=== PATIENT | female | born 1955 | race Caucasian/White ===

== ENCOUNTER 2019-08-20 13:42 | Emergency (ER) | payer OTHER, SELFPAY ==
[2019-08-20 13:58] VITALS: BP 111/56; PULSE 89; RESP 16; TEMP 36.7; O2SAT 98
--- NOTE | 2019-08-20 14:08 | ED.WOUNDLAC ---
HPI - Wound/Laceration General Chief Complaint: Wound/Laceration Stated Complaint: Dog Bite Time Seen by Provider: 08/20/19 14:08 Source: patient and RN notes reviewed Mode of arrival: ambulatory Limitations: no limitations History of Present Illness HPI narrative: 64-year-old female with a history of diabetes mellitus presents with concern for dog bite. She reports last night her brother's dog bit her on the right forearm. Reports she did not clean it, because she was trying to get it to stop bleeding. She reports she was able to get it stop bleeding last night. Reports she does not know when her last tetanus was. Related Data Home Medications Medication Instructions Recorded Confirmed adalimumab 40 mg/0.8 mL 40 mg SUB-Q ONCE 06/20/19 06/21/19 subcutaneous pen kit albuterol sulfate 90 mcg/actuation 1 inhalation INHALATION Q4H 06/20/19 06/21/19 aerosol inhaler aspirin 81 mg tablet,delayed 81 mg PO DAILY 06/20/19 06/21/19 release azelastine 0.15 % (205.5 mcg) 1 spray NASAL DAILY 06/20/19 06/21/19 nasal spray bupropion HCl 150 mg 24 hr tablet, 150 mg PO QAM 06/20/19 06/21/19 extended release cetirizine 10 mg tablet 10 mg PO DAILY 06/20/19 06/21/19 fluoxetine 40 mg capsule 40 mg PO DAILY 06/20/19 06/21/19 fluticasone propionate 50 1 spray NASAL DAILY 06/20/19 06/21/19 mcg/actuation nasal spray,suspension furosemide 20 mg tablet 20 mg PO QAM 06/20/19 06/21/19 hydroxychloroquine 200 mg tablet 200 mg PO DAILY 06/20/19 06/21/19 ipratropium bromide 0.02 % 2.5 ml INHALATION Q6H PRN 06/20/19 06/21/19 solution for inhalation isosorbide mononitrate 60 mg 60 mg PO DAILY 06/20/19 06/21/19 tablet,extended release 24 hr levalbuterol HCl 1.25 mg/3 mL 1.25 mg INHALATION Q4H 06/20/19 06/21/19 solution for nebulization loratadine 10 mg tablet 10 mg PO DAILY 06/20/19 06/21/19 methotrexate sodium 2.5 mg tablet 2.5 mg PO WEEKLY 06/20/19 06/21/19 mometasone-formoterol HFA 200 2 puff INHALATION BID 06/20/19 06/21/19 mcg-5 mcg/actuation aerosol inhaler montelukast 10 mg tablet 10 mg PO DAILY 06/20/19 06/21/19 nitroglycerin 0.4 mg sublingual 0.4 mg SUBLINGUAL Q5M PRN 06/20/19 06/21/19 tablet omeprazole 10 mg capsule,delayed 10 mg PO DAILY 06/20/19 06/21/19 release potassium chloride 10 mEq 10 meq PO DAILY 06/20/19 06/21/19 tablet,extended release pravastatin 40 mg tablet 40 mg PO DAILY 06/20/19 06/21/19 tramadol 37.5 mg-acetaminophen 325 1 tablet PO Q6H PRN 06/20/19 06/21/19 mg tablet folic acid 1 mg tablet 1 mg PO DAILY 06/21/19 06/21/19 duloxetine mg PO 08/20/19 naloxegol [Movantik] mg PO 08/20/19 Allergies Allergy/AdvReac Type Severity Reaction Status Date / Time meperidine Allergy Severe HIVES Verified 06/21/19 13:00 Penicillins Allergy Severe RASH Verified 06/21/19 13:00 hydrocodone Allergy Intermediate HIVES Verified 06/21/19 13:00 Review of Systems Review of Systems: Narrative: CONSTITUTIONAL: Denies malaise, chills, sweats, or fever. CARDIOVASCULAR: Denies chest pain, palpitations RESPIRATORY: Denies dyspnea. SKIN: Denies rash or itching. Reports puncture wound to right forearm, bruising, pain. MUSCULOSKELETAL: Denies limited range of motion in arm or hand NEUROLOGIC: Denies numbness, weakness. All systems reviewed & are unremarkable except as noted in HPI and below PMFSH Family History Family History (Updated 02/13/18 @ 07:11 by DOCTOR UNKNOWN) Mother Cerebrovascular accident Family history of diabetes mellitus in first degree relative Father Family history of malignant neoplasm of kidney Family history of liver disease Carcinoma of colon Other Acute myocardial infarction Asthma Diabetes mellitus Family history of arthritis Family history of cardiovascular disease Family history of chronic obstructive pulmonary disease Family history of congestive heart failure Hypertension Malignant neoplasm of prostate Social History Social History (Reviewed 06/21/19 @ 13:0
[2019-08-20] MEDS: TETANUS,DIPHTHERIA,AC PERTUSSIS ADULT 0.5 ML (ADACEL) IM (14:24)
== END 2019-08-20 14:54 | disposition home or self-care (01) ==
PROVIDERS: Emergency Provider Nurse Practitioner
DX: S51.851A Open bite of right forearm, initial encounter (principal); W54.0XXA Bitten by dog, initial encounter; Z23 Encounter for immunization; I25.10 Atherosclerotic heart disease of native coronary artery without angina pectoris; I25.110 Atherosclerotic heart disease of native coronary artery with unstable angina pectoris; E78.00 Pure hypercholesterolemia, unspecified; I10 Essential (primary) hypertension; J45.909 Unspecified asthma, uncomplicated; G47.30 Sleep apnea, unspecified; K21.9 Gastro-esophageal reflux disease without esophagitis; M06.9 Rheumatoid arthritis, unspecified
CPT/HCPCS: 90471; 90715; 99213; G0463

== ENCOUNTER 2020-01-23 02:17 | Outpatient (CLI) | payer OTHER, SELFPAY ==
[2020-01-23 18:39] LABS: SARS-CoV-2 RNA PCR Negative
== END 2020-01-23 02:18 | disposition home or self-care (01) ==
LOC: ANHCOVIDDT 02:19
PROVIDERS: PCP Family Medicine; Visit Provider Internal Medicine Gastroenterology
DX: Z01.812 Encounter for preprocedural laboratory examination (principal); Z11.59 Encounter for screening for other viral diseases
CPT/HCPCS: 87635; C9803; U0003

== ENCOUNTER 2020-01-25 02:33 | Day surgery (SDC) | payer OTHER, SELFPAY ==
[2020-01-21 10:49] VITALS: BMI 37.0
--- NOTE | 2020-01-24 17:41 | WPDANESEPP ---
Anes - Eval Pre Procedure Procedure: Operation Date: 01/25/20 07:30 Proposed Procedures p Esophagogastroduodenoscopy - Sharan Linton MD Date/Time: 01/24/20 17:41 Pre Op Diagnosis: Acid Reflux Patient Data Age: 64 Gender: F Height: 5 ft 3 in Weight: 95 kg Allergies Allergy/AdvReac Type Severity Reaction Status Date / Time meperidine Allergy Severe HIVES Verified 01/21/20 10:38 Penicillins Allergy Severe RASH Verified 01/21/20 10:38 hydrocodone Allergy Intermediate HIVES Verified 01/21/20 10:38 Home Medications Medication Instructions Recorded Confirmed Type albuterol sulfate 90 mcg/actuation 1 inhalation INHALATION Q4H 06/20/19 01/21/20 History aerosol inhaler aspirin 81 mg tablet,delayed 81 mg PO DAILY 06/20/19 01/21/20 History release azelastine 0.15 % (205.5 mcg) 1 spray NASAL DAILY 06/20/19 01/21/20 History nasal spray bupropion HCl 150 mg 24 hr tablet, 150 mg PO QAM 06/20/19 01/21/20 History extended release fluoxetine 40 mg capsule 40 mg PO DAILY 06/20/19 01/21/20 History fluticasone propionate 50 1 spray NASAL DAILY 06/20/19 01/21/20 History mcg/actuation nasal spray,suspension furosemide 20 mg tablet 20 mg PO QAM 06/20/19 01/21/20 History hydroxychloroquine 200 mg tablet 200 mg PO DAILY 06/20/19 01/21/20 History ipratropium bromide 0.02 % 2.5 ml INHALATION Q6H PRN 06/20/19 01/21/20 History solution for inhalation isosorbide mononitrate 60 mg 60 mg PO DAILY 06/20/19 01/21/20 History tablet,extended release 24 hr levalbuterol HCl 1.25 mg/3 mL 1.25 mg INHALATION Q4H 06/20/19 01/21/20 History solution for nebulization loratadine 10 mg tablet 10 mg PO DAILY 06/20/19 01/21/20 History methotrexate sodium 2.5 mg tablet 2.5 mg PO WEEKLY 06/20/19 01/21/20 History mometasone-formoterol HFA 200 2 puff INHALATION BID 06/20/19 01/21/20 History mcg-5 mcg/actuation aerosol inhaler montelukast 10 mg tablet 10 mg PO DAILY 06/20/19 01/21/20 History nitroglycerin 0.4 mg sublingual 0.4 mg SUBLINGUAL Q5M PRN 06/20/19 01/21/20 History tablet potassium chloride 10 mEq 10 meq PO DAILY 06/20/19 01/21/20 History tablet,extended release pravastatin 40 mg tablet 40 mg PO DAILY 06/20/19 01/21/20 History tramadol 37.5 mg-acetaminophen 325 1 tablet PO Q6H PRN 06/20/19 01/21/20 History mg tablet folic acid 1 mg tablet 1 mg PO DAILY 06/21/19 01/21/20 History duloxetine 60 mg PO DAILY 08/20/19 01/21/20 History naloxegol [Movantik] 25 mg PO DAILY 08/20/19 01/21/20 History linaclotide 72 mcg capsule 290 mcg PO DAILY cap 12/24/19 01/21/20 History pantoprazole 40 mg tablet,delayed 40 mg PO QAM 12/24/19 01/21/20 History release upadacitinib 15 mg tablet,extended 15 mg PO DAILY 12/24/19 01/21/20 History release 24 hr linaclotide [Linzess] 290 mcg PO DAILY 01/21/20 01/21/20 History Patient hx anesthesia problems: none Family hx anesthesia problems: none PMFSH Past Medical History Medical History (Updated 01/24/20 @ 17:45 by Rubens Ma CRNA) Angina of effort Arthritis Asthma CAD (coronary atherosclerotic disease) Depression GERD (gastroesophageal reflux disease) H/O: HTN (hypertension) Hyperlipidemia Kidney stones Moderate persistent asthma without complication Obstructive sleep apnea (adult) (pediatric) OWEN (obstructive sleep apnea) Rhinitis Surgical History Surgical History History of cholecystectomy S/P appy Family History Family History Mother Cerebrovascular accident Family history of diabetes mellitus in first degree relative Father Family history of malignant neoplasm of kidney Family history of liver disease Carcinoma of colon Other Acute myocardial infarction Asthma Diabetes mellitus Family history of arthritis Family history of cardiovascular disease Family history of chronic obstructive pulmonary disease Family history of congestive h
[2020-01-25 06:56] VITALS: BP 121/66; PULSE 77; RESP 16; TEMP 36.3; O2SAT 99; BMI 38.6
[2020-01-25] MEDS: LACTATED RINGERS 1,000 ML 150 ML IV CONT (07:22)
--- NOTE | 2020-01-25 07:28 | WPDANESEPPF ---
Anes - Initial Pre Proc Eval Procedure: Operation Date: 01/25/20 07:30 Proposed Procedures p Esophagogastroduodenoscopy - Sharan Linton MD Date/Time: 01/25/20 07:28 Surgeon: Sharan Linton MD Pre Op Diagnosis: Acid Reflux Patient Data Age: 64 Gender: F Height: 5 ft 3 in Weight: 99 kg Last Vital Signs Temp 97.4 F L 01/25/20 06:56 Pulse 77 01/25/20 06:56 Resp 16 01/25/20 06:56 BP 121/66 01/25/20 06:56 Pulse Ox 99 01/25/20 06:56 Allergies Allergy/AdvReac Type Severity Reaction Status Date / Time meperidine Allergy Severe HIVES Verified 01/25/20 06:49 Penicillins Allergy Severe RASH Verified 01/25/20 06:49 hydrocodone Allergy Intermediate HIVES Verified 01/25/20 06:49 Home Medications Medication Instructions Recorded Confirmed Type albuterol sulfate 90 mcg/actuation 1 inhalation INHALATION Q4H 06/20/19 01/21/20 History aerosol inhaler aspirin 81 mg tablet,delayed 81 mg PO DAILY 06/20/19 01/21/20 History release azelastine 0.15 % (205.5 mcg) 1 spray NASAL DAILY 06/20/19 01/21/20 History nasal spray bupropion HCl 150 mg 24 hr tablet, 150 mg PO QAM 06/20/19 01/21/20 History extended release fluoxetine 40 mg capsule 40 mg PO DAILY 06/20/19 01/21/20 History fluticasone propionate 50 1 spray NASAL DAILY 06/20/19 01/21/20 History mcg/actuation nasal spray,suspension furosemide 20 mg tablet 20 mg PO QAM 06/20/19 01/21/20 History hydroxychloroquine 200 mg tablet 200 mg PO DAILY 06/20/19 01/21/20 History ipratropium bromide 0.02 % 2.5 ml INHALATION Q6H PRN 06/20/19 01/21/20 History solution for inhalation isosorbide mononitrate 60 mg 60 mg PO DAILY 06/20/19 01/21/20 History tablet,extended release 24 hr levalbuterol HCl 1.25 mg/3 mL 1.25 mg INHALATION Q4H 06/20/19 01/21/20 History solution for nebulization loratadine 10 mg tablet 10 mg PO DAILY 06/20/19 01/21/20 History methotrexate sodium 2.5 mg tablet 2.5 mg PO WEEKLY 06/20/19 01/21/20 History mometasone-formoterol HFA 200 2 puff INHALATION BID 06/20/19 01/21/20 History mcg-5 mcg/actuation aerosol inhaler montelukast 10 mg tablet 10 mg PO DAILY 06/20/19 01/21/20 History nitroglycerin 0.4 mg sublingual 0.4 mg SUBLINGUAL Q5M PRN 06/20/19 01/21/20 History tablet potassium chloride 10 mEq 10 meq PO DAILY 06/20/19 01/21/20 History tablet,extended release pravastatin 40 mg tablet 40 mg PO DAILY 06/20/19 01/21/20 History tramadol 37.5 mg-acetaminophen 325 1 tablet PO Q6H PRN 06/20/19 01/25/20 History mg tablet folic acid 1 mg tablet 1 mg PO DAILY 06/21/19 01/21/20 History duloxetine 60 mg PO DAILY 08/20/19 01/21/20 History naloxegol [Movantik] 25 mg PO DAILY 08/20/19 01/21/20 History pantoprazole 40 mg tablet,delayed 40 mg PO QAM 12/24/19 01/21/20 History release upadacitinib 15 mg tablet,extended 15 mg PO DAILY 12/24/19 01/21/20 History release 24 hr linaclotide [Linzess] 290 mcg PO DAILY 01/21/20 01/21/20 History prednisone 5 mg PO DAILY 01/25/20 01/25/20 History Patient hx anesthesia problems: none Family hx anesthesia problems: none [facility] Past Medical History Medical History (Updated 01/24/20 @ 17:45 by Rubens Ma CRNA) Angina of effort Arthritis Asthma CAD (coronary atherosclerotic disease) Depression GERD (gastroesophageal reflux disease) H/O: HTN (hypertension) Hyperlipidemia Kidney stones Moderate persistent asthma without complication Obstructive sleep apnea (adult) (pediatric) OWEN (obstructive sleep apnea) Rhinitis Surgical History Surgical History History of cholecystectomy S/P appy Family History Family History Mother Cerebrovascular accident Family history of diabetes mellitus in first degree relative Father Family history of malignant neoplasm of kidney Family history of liver disease Carcinoma of colon Other Acute myocardial infarction Asthma
--- NOTE | 2020-01-25 07:37 | WPDGICN ---
Assessment and Plan Assessment and plan (1) GERD (gastroesophageal reflux disease): Code(s): K21.9 - Gastro-esophageal reflux disease without esophagitis Status: Acute Assessment and Plan: Long history of GE reflux disease previously stable on pantoprazole. Patient complains of significant regurgitation heartburn presently poorly responsive medications for this reason EGD will be performed further recommendations will be given after endoscopy. (2) Heartburn: Code(s): R12 - Heartburn Status: Acute Assessment and Plan: Because of heartburn patient will continue pantoprazole supplement this with an acids. Further recommendations may be given after endoscopy. (3) Constipation: Code(s): K59.00 - Constipation, unspecified Status: Acute Assessment and Plan: Patient appears to be have a good response to a bowel habits with Linzess. Plan is to continue this indefinitely. Colace may help as a supplement. Since high-fiber diet advised as well. (4) Family history of colon cancer in father: Code(s): Z80.0 - Family history of malignant neoplasm of digestive organs Status: Acute Assessment and Plan: Because of family history of colon cancer in her father screening colonoscopy advised at 5 year intervals. Last exam was 4 years ago. Anticipate follow-up colonoscopy in 2020. GI Consult Note Consult date/time: 01/25/20 07:37 HPI: Nohemy Roy is a 64 year old female seen in evaluation at the request of Dr Tho Kelsey.Patient complains of significant acid regurgitation. She complains of chest pain. Difficulty with eating causing her to have pain nocturnal regurgitation. She has a past medical history of acid reflux currently maintained on pantoprazole 40 mg p.o. daily with poor response to medications. Because of poor response to medications patient presents today for follow-up EGD. Recent medical history is significant for difficulty with constipation. She complains of hard stools. Current medications include Linzess 290 micro g p.o. daily. Supplemented with Colace. Patient denies any blood in her stools. She also denies any blood in her emesis. Family history is significant that her father has had colon cancer. Patient has undergone periodic surveillance colonoscopies. Last colonoscopy was 4 years ago. Review of Systems Review of Systems: All systems reviewed & are unremarkable except as noted in HPI and below PMFSH Past Medical History Medical History Angina of effort Arthritis Asthma CAD (coronary atherosclerotic disease) Depression GERD (gastroesophageal reflux disease) H/O: HTN (hypertension) Hyperlipidemia Kidney stones Moderate persistent asthma without complication Obstructive sleep apnea (adult) (pediatric) OWEN (obstructive sleep apnea) Rhinitis Surgical History Surgical History History of cholecystectomy S/P appy Family History Family History Mother Cerebrovascular accident Family history of diabetes mellitus in first degree relative Father Family history of malignant neoplasm of kidney Family history of liver disease Carcinoma of colon Other Acute myocardial infarction Asthma Diabetes mellitus Family history of arthritis Family history of cardiovascular disease Family history of chronic obstructive pulmonary disease Family history of congestive heart failure Hypertension Malignant neoplasm of prostate Social History Social History Smoking status: Never smoker Alcohol intake: never Meds Home Medications and Allergies Home Medications Medication Instructions Recorded Confirmed Type albuterol sulfate 90 mcg/actuation 1 inhalation INHALATION Q4H 06/20/19 01/21/20 History aerosol
[2020-01-25] MEDS: BENZOCAINE (*SP) 60 ML SPRAY CAN (HURRICAINE) 1 SPRAY MUCOUS MEM (07:39)
[2020-01-25 07:54] VITALS: BP 89/53; PULSE 69; RESP 17; O2SAT 94
[2020-01-25 08:04] VITALS: BP 95/58; PULSE 69; RESP 17; O2SAT 98
[2020-01-25 08:14] VITALS: BP 104/63; PULSE 75; RESP 17; O2SAT 98
== END 2020-01-25 08:43 | disposition home or self-care (01) ==
PROVIDERS: PCP Family Medicine; Visit Provider Internal Medicine Gastroenterology
PROC: 0DJ08ZZ Inspection of Upper Intestinal Tract, Via Natural or Artificial Opening Endoscopic (ICD-10-PCS; CPT 43235; principal; 2020-01-25 07:30)
DX: K21.9 Gastro-esophageal reflux disease without esophagitis (principal); K59.00 Constipation, unspecified; Z80.0 Family history of malignant neoplasm of digestive organs; I25.10 Atherosclerotic heart disease of native coronary artery without angina pectoris; E78.5 Hyperlipidemia, unspecified; G47.33 Obstructive sleep apnea (adult) (pediatric); Z79.82 Long term (current) use of aspirin; E66.9 Obesity, unspecified; Z68.38 Body mass index [BMI] 38.0-38.9, adult
CPT/HCPCS: 43239; 87081; 87635; C9803; J2001; J2704; J7120; U0003

== ENCOUNTER 2020-04-02 14:16 | Emergency (ER) | payer OTHER, SELFPAY ==
--- NOTE | ~2020-04-02 | NM_ITS ---
EXAMINATION: NM pulmonary perfusion DATE: 04/02/2020 19:00 INDICATION: Chest pain and shortness of breath TECHNIQUE: 5.13 mCi Tc-99m MAA administered by intravenous route. Scintigraphic images of the chest were obtained. COMPARISON: Chest radiograph dated 04/02/2020 FINDINGS: Small perfusion defects at the posterior segment of the left upper lobe and at the superior segment o f the right lower lobe. No other large perfusion defects appreciated. IMPRESSION: 1. Low probability for pulmonary embolism. Reviewed, dictated and finalized at location A.
--- NOTE | ~2020-04-02 | XR_ITS ---
EXAMINATION: XR chest 2V DATE: 04/02/2020 14:56 INDICATION: Shortness of breath. TECHNIQUE: Frontal and lateral views of the chest were obtained. COMPARISON: Chest 2 views 01/27/2019, chest CT 10/01/2015 FINDINGS: The chest demonstrates clear lungs without pneumonia, pleural effusion, or pneumothorax. Th e heart size is normal. Surgical clips in the right upper quadrant are likely from cholecystectomy. IMPRESSION: 1. No acute cardiopulmonary disease. Reviewed, dictated and finalized at location A.
--- NOTE | ~2020-04-02 | US_ITS ---
EXAMINATION: US venous doppler [facility] DATE: 04/02/2020 18:14 INDICATION: Shortness of breath and chest pain TECHNIQUE: Grayscale ultrasound images without and with compression and Doppler ultrasound images of the bilateral lower extremity veins were obtained. COMPARISON: None. FINDINGS: The visualized portions of right common femoral vein, profunda (deep) femoral vein, femoral vein, pop liteal vein, posterior tibial veins, peroneal veins, gastrocnemius vein and greater saphenous vein ou tflow are patent. The visualized portions of left common femoral vein, profunda femoral vein, femoral vein, popliteal v ein, posterior tibial veins, peroneal veins, gastrocnemius vein and greater saphenous vein outflow ar e patent. IMPRESSION: 1. No deep venous thrombosis in either lower limb. Reviewed, dictated and finalized at location A.
[2020-04-02 14:22] VITALS: BP 134/56; PULSE 99; RESP 16; TEMP 36.9; O2SAT 98
[2020-04-02 14:25] VITALS: O2SAT 97
--- NOTE | 2020-04-02 14:33 | ECG_ITS ---
Measurements Intervals [place] Rate: 46 P: 52 NH: 166 QRS: 36 QRSD: 86 T: 41 QT: 344 QTc: 303 Interpretive Statements SINUS RHYTHM RSR' IN V1 OR V2, CONSIDER RIGHT VENTRICULAR HYPERTROPHY OR RIGHT VCD LOW QRS VOLTAGE IN PRECORDIAL LEADS BORDERLINE ECG Electronically Signed On 04-02-2020 14:39:25 CDT by Faisal Gonzalez D.O.
[2020-04-02 14:51] LABS: Basophils Percent Auto 0.5 % (0.2-1.2); Eosinophils Absolute Auto 0.1 K/mm3 (0-0.3); Eosinophils Percent Auto 0.9 % (0-4.4); Hematocrit 38.9 % (37.0-47.0); Hemoglobin 12.9 g/dL (12.0-15.0); Immature Granulocyte Absolute 0.02 K/mm3 (0.00-0.031); Immature Granulocyte Percent A 0.4 % (0-0.5); Lymphocytes Absolute Auto 0.99 K/mm3 (0.9-3.2); Lymphocytes Percent Auto 18.1 % (18.3-44.2); Mean Corpuscular HGB Conc 33.2 g/dl (32-36); Mean Corpuscular Hemoglobin 33.6 pg (26-34); Mean Corpuscular Volume 101.3 fl (80-100); Mean Platelet Volume 9.7 fl (7.4-10.4); Monocytes Absolute Auto 0.7 K/mm3 (0.1-0.6); Monocytes Percent Auto 13.5 % (2.6-8.5); Neutrophils Absolute Auto 3.6 K/mm3 (1.3-6.7); Neutrophils Percent Auto 66.6 % (45.5-73.1); Platelet Count Result 259 k/mm3 (150-375); Red Blood Count 3.84 M/mm3 (4.2-5.4); Red Cell Distribution Width 14.6 % (11.5-14.5); White Blood Count 5.5 K/mm3 (4.5-10.0)
[2020-04-02 15:06] LABS: Anion Gap 6 mmol/L (8-16); Blood Urea Nitrogen 18 mg/dL (7-17); Calcium 9.1 mg/dL (8.4-10.2); Carbon Dioxide 24 mmol/L (22-30); Chloride 109 mmol/L (98-107); Estimated CRCL calculation 73 ml/min; Estimated Glomerular Filt Rate > 60; Glucose 120 mg/dL (65-105); Potassium 4.6 mmol/L (3.4-5.0); Sodium 139 mmol/L (137-145)
--- NOTE | 2020-04-02 15:24 | ED.URI ---
HPI - URI/Sore Throat General Chief Complaint: Upper Respiratory Infection Stated Complaint: TROUBLE BREATHING Time Seen by Provider: 04/02/20 14:26 Source: patient Mode of arrival: ambulatory Limitations: no limitations History of Present Illness HPI Narrative: This patient is a 64 year old female with history of asthma and Rheumatoid arthritis who presents for evaluation of cough and sob. She reports she has had cough at night for a couple of months. She reports she has been having intermittent sob for 2 days. She also reports left chest pain that is intermittent. She denies chest pain currently. She denies fever, chills, nausea, vomiting, sore throat, loss of taste of smell. She denies exposure of COVID. Related Data Home Medications Medication Instructions Recorded Confirmed albuterol sulfate 90 mcg/actuation 1 inhalation INHALATION Q4H 06/20/19 01/21/20 aerosol inhaler aspirin 81 mg tablet,delayed 81 mg PO DAILY 06/20/19 01/21/20 release azelastine 0.15 % (205.5 mcg) 1 spray NASAL DAILY 06/20/19 01/21/20 nasal spray bupropion HCl 150 mg 24 hr tablet, 150 mg PO QAM 06/20/19 01/21/20 extended release fluoxetine 40 mg capsule 40 mg PO DAILY 06/20/19 01/21/20 fluticasone propionate 50 1 spray NASAL DAILY 06/20/19 01/21/20 mcg/actuation nasal spray,suspension furosemide 20 mg tablet 20 mg PO QAM 06/20/19 01/21/20 hydroxychloroquine 200 mg tablet 200 mg PO DAILY 06/20/19 01/21/20 ipratropium bromide 0.02 % 2.5 ml INHALATION Q6H PRN 06/20/19 01/21/20 solution for inhalation isosorbide mononitrate 60 mg 60 mg PO DAILY 06/20/19 01/21/20 tablet,extended release 24 hr levalbuterol HCl 1.25 mg/3 mL 1.25 mg INHALATION Q4H 06/20/19 01/21/20 solution for nebulization loratadine 10 mg tablet 10 mg PO DAILY 06/20/19 01/21/20 methotrexate sodium 2.5 mg tablet 2.5 mg PO WEEKLY 06/20/19 01/21/20 mometasone-formoterol HFA 200 2 puff INHALATION BID 06/20/19 01/21/20 mcg-5 mcg/actuation aerosol inhaler montelukast 10 mg tablet 10 mg PO DAILY 06/20/19 01/21/20 nitroglycerin 0.4 mg sublingual 0.4 mg SUBLINGUAL Q5M PRN 06/20/19 01/21/20 tablet potassium chloride 10 mEq 10 meq PO DAILY 06/20/19 01/21/20 tablet,extended release pravastatin 40 mg tablet 40 mg PO DAILY 06/20/19 01/21/20 tramadol 37.5 mg-acetaminophen 325 1 tablet PO Q6H PRN 06/20/19 01/25/20 mg tablet folic acid 1 mg tablet 1 mg PO DAILY 06/21/19 01/21/20 duloxetine 60 mg PO DAILY 08/20/19 01/21/20 naloxegol [Movantik] 25 mg PO DAILY 08/20/19 01/21/20 pantoprazole 40 mg tablet,delayed 40 mg PO QAM 12/24/19 01/21/20 release upadacitinib 15 mg tablet,extended 15 mg PO DAILY 12/24/19 01/21/20 release 24 hr linaclotide [Linzess] 290 mcg PO DAILY 01/21/20 01/21/20 prednisone 5 mg PO DAILY 01/25/20 01/25/20 Allergies Allergy/AdvReac Type Severity Reaction Status Date / Time meperidine Allergy Severe HIVES Verified 04/02/20 14:26 Penicillins Allergy Severe RASH Verified 04/02/20 14:26 hydrocodone Allergy Intermediate HIVES Verified 04/02/20 14:26 Review of Systems Review of Systems: All systems reviewed & are unremarkable except as noted in HPI and below Constitutional: Constitutional: Denies chills and Denies fever(s) Cardiovascular: Cardiovascular: Reports chest pain and Denies radiating jaw, neck or arm pain Respiratory: Respiratory: Reports cough, Reports dyspnea and Denies wheezing Gastrointestinal: Gastrointestinal: Denies abdominal pain, Denies diarrhea, Denies nausea and Denies vomiting PMFSH Social History Social History Smoking status: Never smoker Alcohol intake: never Exam Narrative: Exam Narrative: GENERAL: Well-appearing, well-nourished, and in no acute distress. HEAD: Normocephalic, atraumatic EYES: PERRLA and EOMI, conjunctiva clear without discharge THROAT:Mucous membranes moist, Oropharynx normal without erythema, exudate, peritonsillar swelling
[2020-04-02 15:33] LABS: Alanine Aminotransferase 31 U/L (4-35); Albumin Level 3.9 g/dL (3.5-5.1); Alkaline Phosphatase 105 U/L (38-126); Aspartate Amino Transferase 48 U/L (14-36); Bilirubin,Total 0.5 mg/dL (0.2-1.3)
[2020-04-02 15:40] LABS: Troponin I < 0.012 ng/mL (0.000-0.034)
[2020-04-02 17:16] LABS: INR 1.1; Prothrombin Time 13.4 Seconds (11.1-14.7)
[2020-04-02 17:17] LABS: Partial Thromboplastin Time 26.4 SECONDS (22.3-36.8)
[2020-04-02 17:19] LABS: D Dimer 0.49 ug/mL (<0.48)
[2020-04-02 19:31] VITALS: BP 137/80; PULSE 94; RESP 20; O2SAT 97
[2020-04-02 20:16] VITALS: BP 134/80; PULSE 88; RESP 18; TEMP 36.7; O2SAT 97
== END 2020-04-02 20:17 | disposition home or self-care (01) ==
PROVIDERS: Emergency Provider General Practice; PCP Family Medicine
DX: R06.00 Dyspnea, unspecified (principal); M06.9 Rheumatoid arthritis, unspecified; J45.909 Unspecified asthma, uncomplicated; R94.31 Abnormal electrocardiogram [ECG] [EKG]
CPT/HCPCS: 36415; 71046; 78580; 80048; 80076; 84484; 85025; 85380; 85610; 85730; 93005; 93970; 99284; A9540

== ENCOUNTER 2020-04-25 08:24 | Outpatient (CLI) | payer OTHER, SELFPAY ==
--- NOTE | ~2020-04-25 | MM_ITS ---
EXAMINATION: MM screening yuriy BI w deshawn HISTORY: Screening mammogram TECHNIQUE: Craniocaudal and mediolateral oblique 3-D tomosynthesis images were obtained and synthetic 2-D images were generated. CAD analysis was submitted and interpreted. COMPARISON: 04/23/2019, 03/15/2018, 01/27/2017 bilateral digital screening mammogram examinations BREAST PARENCHYMAL COMPOSITION: There are scattered areas of fibroglandular density. FINDINGS: Bilateral benign calcifications, more numerous on the right,, largely present since 01/28/20 17. There is no evidence of suspicious mass, calcification, or architectural distortion to suggest ma lignancy in either breast. There has been no suspicious interval change. IMPRESSION: 1. No mammographic evidence of malignancy. 2. Recommend routine screening mammography in one year. BI-RADS Category 2: Benign Reviewed, dictated and finalized at location A.
== END 2020-04-25 08:25 | disposition home or self-care (01) ==
LOC: ANHIMG 08:27
PROVIDERS: PCP Family Medicine; Visit Provider Physician Assistant
DX: Z12.31 Encounter for screening mammogram for malignant neoplasm of breast (principal)
CPT/HCPCS: 77063; 77067

== ENCOUNTER 2020-06-19 12:30 | Outpatient (CLI) | payer OTHER, SELFPAY ==
--- NOTE | ~2020-06-19 | CT_ITS ---
EXAMINATION: CT brain wo con DATE: 06/19/2020 12:49 INDICATION: Bilateral ear ache for 2 months. Headache. Dizziness. TECHNIQUE: Computed tomography (CT) of the head was performed without intravenous contrast. The mA wa s adjusted according to patient size. Iterative reconstruction technique was employed. Exam dose: 60 5.33 mGy-cm total exam DLP. COMPARISON: 02/24/2016 CT brain FINDINGS: Bilateral vertebral artery and carotid siphon internal carotid artery calcifications are ag ain identified, as well as mild diminished attenuation of the cerebral white matter, likely due to ch ronic small vessel ischemic changes. No intracranial mass lesion or hemorrhage or cerebrovascular accident is evident. There is no midline shift or mass effect. Normal ventricular size. No subdural or epidural hematoma. Limited development and no opacification of the left mastoid air cells. The right mastoid air cells a re normally developed and aerated. Included paranasal sinuses are unremarkable. No fracture or bone destruction of the cranial vault. IMPRESSION: Cerebral atherosclerosis and chronic small vessel ischemic changes of the cerebral white matter No significant intracranial abnormality is noted otherwise Reviewed, dictated and finalized at Location A. Reviewed, dictated and finalized at location B. [employer]
== END 2020-06-19 12:31 | disposition home or self-care (01) ==
PROVIDERS: PCP Family Medicine; Visit Provider Physician Assistant
DX: R42 Dizziness and giddiness (principal); I67.2 Cerebral atherosclerosis
CPT/HCPCS: 70450

== ENCOUNTER 2020-08-26 08:08 | Outpatient (CLI) | payer OTHER, SELFPAY ==
--- NOTE | ~2020-08-26 | US_ITS ---
EXAMINATION: US venous doppler [facility] EXAM DATE: 08/26/2020 08:45 INDICATION: Left calf pain. TECHNIQUE: Multiple grayscale, color flow and Doppler images of the left lower extremity deep venous system were obtained and reviewed. Comparison is made to prior examination from 04/02/2020. FINDINGS: The left common femoral, femoral and profunda veins demonstrate normal color flow, respirat ory variation, augmentation and compressibility. Compressibility, color flow confirmed within the le ft popliteal, posterior tibial, peroneal, and greater saphenous veins. IMPRESSION: No left lower extremity deep venous thrombosis. Reviewed, dictated and finalized at location D. NESS PROGRAM MANAGER
== END 2020-08-26 08:09 | disposition home or self-care (01) ==
LOC: ANHIMG 08:12
PROVIDERS: PCP Family Medicine; Visit Provider Physician Assistant
DX: M79.662 Pain in left lower leg (principal)
CPT/HCPCS: 93971

== ENCOUNTER 2021-01-16 14:16 | Outpatient (CLI) | payer OTHER, SELFPAY ==
--- NOTE | ~2021-01-16 | XR_ITS ---
XR foot LT 2V DATE: 01/16/2021 14:42 INDICATION: Seropositive rheumatoid arthritis TECHNIQUE: AP and lateral views COMPARISON: None FINDINGS: Pes planus. Mild plantar calcaneal enthesopathy. No fracture, dislocation, periosteal reaction or bone destruction. Joint spaces are well preserved. N o erosive change is evident. IMPRESSION: Pes planus Mild plantar calcaneal enthesopathy Reviewed, dictated and finalized at location B.
--- NOTE | ~2021-01-16 | XR_ITS ---
XR foot RT 2V DATE: 01/16/2021 14:42 INDICATION: Seropositive rheumatoid arthritis TECHNIQUE: 2 views COMPARISON: None FINDINGS: Pes planus. Mild plantar calcaneal enthesopathy. Moderate osteoarthritis at the first metatarsophalangeal joint. No fracture, dislocation, periosteal reaction or bone destruction. No erosive change is evident. IMPRESSION: Pes planus Mild plantar calcaneal enthesopathy Osteoarthritis at first metatarsophalangeal joint Reviewed, dictated and finalized at location B.
== END 2021-01-16 14:17 | disposition home or self-care (01) ==
PROVIDERS: PCP Physician Assistant; Visit Provider Physician Assistant
DX: M05.79 Rheumatoid arthritis with rheumatoid factor of multiple sites without organ or systems involvement (principal); M77.31 Calcaneal spur, right foot; M19.071 Primary osteoarthritis, right ankle and foot; M77.32 Calcaneal spur, left foot
CPT/HCPCS: 73620

== ENCOUNTER 2021-01-27 13:52 | Outpatient (CLI) | payer OTHER, SELFPAY ==
--- NOTE | ~2021-01-27 | DEXA_ITS ---
Bone Density Report Name: Nohemy Roy Age: 65 Sex: Female Ethnicity: White Date of : 1955 Indication: postmenopausal osteoporosis; height loss; history of glucocorticoids; prior fracture; asthma or emphysema; hysterectomy; rheumatoid arthritis; Referring Provider: Charan, Sangita Maldonado Study: Bone densitometry was performed. Exam Date: January 27, 2021 Accession number: [id number] Bone Density: Region BMD T-score Z-score Classification AP Spine (L1-L4) 0.847 -1.8 0.0 Osteopenia Femoral Neck (Left) 0.637 -1.9 -0.4 Osteopenia Total Hip (Left) 0.790 -1.2 0.0 Osteopenia Total Hip Bilateral Avg 0.808 -1.1 0.2 Osteopenia Femoral Neck (Right) 0.590 -2.3 -0.8 Osteopenia Total Hip (Right) 0.825 -1.0 0.3 Normal World Health Organization criteria for BMD impression classify patients as: Normal (T-score at or above -1.0), Osteopenia (T-score between -1.0 and -2.5), or Osteoporosis (T-score at or below -2.5). 10-year Fracture Risk(1): Major Osteoporotic Fracture 32% Hip Fracture 7.0% Reported Risk Factors: [place] (), Neck BMD=0.590, BMI=43.2, previous fracture, glucocorticoids, rheumatoid arthritis (1) FRAX(R) Version 3.08. Fracture probability calculated for an untreated patient. Fracture probability may be lower if the patient has received treatment. Previous Exams: Region Exam Age BMD T-score BMD Change BMD Change Date g/cm2 vs Baseline vs Previous AP Spine(L1-L4) 01/27/2021 65 0.847 -1.8 -0.002(-0.2%) 0.123(17.0%)# 01/31/2019 63 0.724 -2.9 -0.125(-14.7%) -0.125(-14.7%) 01/27/2017 61 0.849 -1.8 Total Hip(Left) 01/27/2021 65 0.790 -1.2 -0.018(-2.2%) 0.004(0.5%) 01/31/2019 63 0.786 -1.3 -0.021(-2.7%) -0.021(-2.7%) 01/27/2017 61 0.807 -1.1 Total Hip(Right) 01/27/2021 65 0.825 -1.0 0.022(2.7%) 0.094(12.9%)* 01/31/2019 63 0.730 -1.7 -0.073(-9.1%)* -0.073(-9.1%)* 01/27/2017 61 0.803 -1.1 *Denotes significance at 95% confidence level, LSC for AP Spine = 0.022 g/cm2, LSC for Total Hip = 0.027 g/cm2 Clinical Information Provided by Patient: Has had a low trauma fracture Has taken Glucocorticoids Has rheumatoid arthritis Has used the following medications: Vitamin D, Calcium Has the following medical conditions: Asthma or Emphysema, Hysterectomy Patient maximum height was 64 Menopause Age: 43 Does not regularly consume dairy products Drinks caffeinated beverages Onset of menses at age 14 Number of children 0
== END 2021-01-27 13:53 | disposition home or self-care (01) ==
LOC: ANHIMG 13:54
PROVIDERS: PCP Physician Assistant; Visit Provider Physician Assistant
DX: M81.0 Age-related osteoporosis without current pathological fracture (principal); M85.89 Other specified disorders of bone density and structure, multiple sites
CPT/HCPCS: 77080

== ENCOUNTER 2021-02-02 08:38 | Outpatient (CLI) | payer OTHER, SELFPAY ==
--- NOTE | ~2021-02-02 | XR_ITS ---
EXAMINATION: XR knee RT 3V DATE: 02/02/2021 09:07 INDICATION: Arthralgia, osteoarthritis TECHNIQUE: Three views of the right knee were obtained. COMPARISON: 02/24/2016 FINDINGS: Alignment is normal. No fracture or osteochondral lesion. Joint spaces are normal with no e rosions. No joint effusion/synovitis. Soft tissues are unremarkable. IMPRESSION: 1. No acute osseous abnormality. Reviewed, dictated and finalized at location A.
--- NOTE | ~2021-02-02 | XR_ITS ---
EXAMINATION: XR knee LT 3V DATE: 02/02/2021 09:07 INDICATION: Arthralgia, osteoarthritis TECHNIQUE: Three views of the left knee were obtained. COMPARISON: 02/06/2013 FINDINGS: Alignment is normal. No fracture or osteochondral lesion. There is tricompartmental osteoar thritis, moderate in the medial and patellofemoral compartments and mild in the lateral compartment. Chondrocalcinosis is noted. No joint effusion/synovitis. Soft tissues are unremarkable. IMPRESSION: 1. Moderate osteoarthritis without acute findings. Reviewed, dictated and finalized at location A.
== END 2021-02-02 08:39 | disposition home or self-care (01) ==
PROVIDERS: PCP Physician Assistant; Visit Provider Physician Assistant Medical
DX: M17.12 Unilateral primary osteoarthritis, left knee (principal)
CPT/HCPCS: 73562

== ENCOUNTER 2021-03-08 09:44 | Emergency (ER) | payer OTHER, SELFPAY ==
--- NOTE | ~2021-03-08 | XR_ITS ---
EXAMINATION: XR shoulder LT min 2V, XR elbow LT 2V, XR humerus LT DATE: 03/08/2021 10:31 INDICATION: Left upper limb pain post fall TECHNIQUE: 1. AP and transscapular Y views of the left shoulder were obtained. 2. Single view of the left humerus was obtained. 3. Frontal and oblique views of the left elbow were obtained. COMPARISON: None FINDINGS: Oblique fracture at the surgical neck of the proximal left humerus with approximately 25 degrees post erolateral angulation and with 2 cm proximal migration. No other fractures identified. Left humeral h ead remains in normal alignment with respect to the glenoid. Widening of the left acromioclavicular j oint likely related to distal clavicle excision. The left elbow is suboptimally profiled with no true lateral projection. There is at least moderate osteoarthritis at the elbow joint. Amputation across the distal left forearm with smooth osteotomy margins. IMPRESSION: 1. Two-part fracture at the surgical neck of the proximal left humerus. 2. Chronic amputations at the distal left forearm and moderate osteoarthritis at the left elbow. Ther e is more specific concern for trauma at the left elbow would consider repeating a true lateral radio graph of the left elbow. Reviewed, dictated and finalized at location A. IMPRESSION: 1. Two-part fracture at the surgical neck of the proximal left humerus. 2. Chronic amputations at the distal left forearm and moderate osteoarthritis a t the left elbow. There is more specific concern for trauma at the left elbow w ould consider repeating a true lateral radiograph of the left elbow. IMPRESSION: 1. Two-part fracture at the surgical neck of the proximal left humerus. 2. Chronic amputations at the distal left forearm and moderate osteoarthritis a t the left elbow. There is more specific concern for trauma at the left elbow w ould consider repeating a true lateral radiograph of the left elbow.
--- NOTE | ~2021-03-08 | CT_ITS ---
EXAMINATION: CT brain wo con DATE: 03/08/2021 11:34 INDICATION: Fall with head injury TECHNIQUE: Computed tomography (CT) of the head was performed without intravenous contrast. Sagittal and coronal reconstructions were performed. The mA was adjusted according to patient size. Iterative reconstruction technique was employed. The dose-length product was 605.33 mGy-cm. COMPARISON: head CT dated 06/19/2020 FINDINGS: No fracture. No acute intracranial hemorrhage, acute infarction or abnormal extra axial fluid collect ion. There is mild scattered white matter hypoattenuation consistent with chronic small vessel ischem ic disease. Ventricles are normal and symmetric. No mass/mass effect. Changes of bilateral intraocul ar lens replacement. The orbits, paranasal sinuses and right mastoid air cells are normal. Chronic le ft otomastoiditis effusion. IMPRESSION: 1. No fracture or acute intracranial process. 2. Mild scattered white matter hypoattenuation consistent with chronic small vessel ischemic disease. 3. Chronic left otomastoiditis effusion. Reviewed, dictated and finalized at location A. IMPRESSION: 1. No fracture or acute intracranial process. 2. Mild scattered white matter hypoattenuation consistent with chronic small ve ssel ischemic disease. 3. Chronic left otomastoiditis effusion.
--- NOTE | ~2021-03-08 | CT_ITS ---
EXAMINATION: CT cervical spine wo con DATE: 03/08/2021 11:34 INDICATION: Neck pain post fall TECHNIQUE: Computed tomography (CT) of the cervical spine was performed without intravenous contrast. Automated exposure control and iterative reconstruction technique were employed. The dose-length pro duct was 496.00 mGy-cm. COMPARISON: MRI dated 09/26/2015 FINDINGS: 1-2 mm anterolisthesis C3 on C4 and C4 on C5. Vertebral body heights are normal. No fracture. Moderat e to severe disc height loss with posterior disc osteophyte complex and moderate left-sided and sever e right-sided uncovertebral osteoarthritis at C6-C7. This results in mild central canal stenosis as w ell as bilateral neural foraminal stenosis, mild to moderate on the right and mild on the left. Moder ate disc height loss at C2-C3 and mild disc height loss at C4-C5 and C5-C6. Mild scattered uncoverteb ral osteoarthritis throughout the remainder of the cervical spine. Moderate to severe facet osteoarth ritis on the right at C4-C5. Otherwise mild multilevel bilateral cervical facet and uncovertebral ost eoarthritis contributing to additional minimal to mild neural foraminal stenosis at several additiona l levels on both the left and right. Likely no change in minimal central canal stenosis resulting fro m mild disc bulges at C3-C4 through C5-C6 which are less clearly visualized on CT than on the prior M RI. Cervical soft tissues are unremarkable. Subtle mosaic attenuation at the apices likely related to at least partially expiratory phase of imaging. IMPRESSION: 1. Interval progression in now mild to moderate cervical spondylosis. No acute osseous abnormality. Reviewed, dictated and finalized at location A.
[2021-03-08 09:42] VITALS: BP 132/85; PULSE 86; RESP 16; TEMP 36.2; O2SAT 97
--- NOTE | 2021-03-08 11:18 | ED.GENADULT ---
HPI - General Adult General Chief complaint: Fall Stated complaint: Fall Time Seen by Provider: 03/08/21 10:20 Source: patient History of Present Illness HPI narrative: Patient is a 65 y/o female complaining of left shoulder pain after a fall at [employer] this morning. She describes her pain as sharp and it's worse with movement. She rates her pain as 9-10/10. Her pain radiate to her neck. She states that she hit her face, but did not pass out. She has no chest pain, abdominal pain or back pain. Related Data Home Medications Medication Instructions Recorded Confirmed aspirin 81 mg tablet,delayed 81 mg PO DAILY 06/20/19 06/24/20 release bupropion HCl 150 mg 24 hr tablet, 150 mg PO QAM 06/20/19 06/24/20 extended release furosemide 20 mg tablet 20 mg PO QAM 06/20/19 06/24/20 hydroxychloroquine 200 mg tablet 200 mg PO DAILY 06/20/19 06/24/20 isosorbide mononitrate 60 mg 60 mg PO DAILY 06/20/19 06/24/20 tablet,extended release 24 hr methotrexate sodium 2.5 mg tablet 2.5 mg PO WEEKLY 06/20/19 06/24/20 montelukast 10 mg tablet 10 mg PO DAILY 06/20/19 06/24/20 potassium chloride 10 mEq 10 meq PO DAILY 06/20/19 06/24/20 tablet,extended release pravastatin 40 mg tablet 40 mg PO DAILY 06/20/19 06/24/20 tramadol 37.5 mg-acetaminophen 325 1 tablet PO Q6H PRN 06/20/19 06/24/20 mg tablet folic acid 1 mg tablet 1 mg PO DAILY 06/21/19 06/24/20 duloxetine 60 mg PO DAILY 08/20/19 06/24/20 pantoprazole 40 mg tablet,delayed 40 mg PO QAM 12/24/19 06/24/20 release upadacitinib 15 mg tablet,extended 15 mg PO DAILY 12/24/19 06/24/20 release 24 hr calcium carbonate-vitamin D2 tablet PO 03/08/21 [Calcium + Vitamin D] cholecalciferol (vitamin D3) 125 mcg PO DAILY 03/08/21 [Vitamin D3] cyclobenzaprine 5 mg PO HS PRN 03/08/21 docusate sodium [Colace] 100 mg PO BID 03/08/21 meloxicam 15 mg PO DAILY 03/08/21 potassium chloride 10 meq PO DAILY 03/08/21 03/08/21 zoledronic [id number] 5 mg IV ONCE 03/08/21 [Reclast] Allergies Allergy/AdvReac Type Severity Reaction Status Date / Time meperidine Allergy Severe HIVES Verified 03/08/21 09:47 Penicillins Allergy Severe RASH Verified 03/08/21 09:47 hydrocodone Allergy Intermediate HIVES Verified 03/08/21 09:47 Review of Systems Constitutional: Constitutional: Denies chills, Denies fever(s), Denies headache(s) and Denies weakness Eyes: Eyes: Denies blurry vision ENT: Denies headache(s) and Denies neck pain Cardiovascular: Cardiovascular: Denies chest pain and Denies dyspnea Respiratory: Respiratory: Denies cough and Denies dyspnea Gastrointestinal: Gastrointestinal: Denies abdominal pain, Denies diarrhea, Denies nausea and Denies vomiting Genitourinary: Genitourinary: Denies hematuria and Denies dysuria Musculoskeletal: Musculoskeletal: Reports as per HPI, Denies back pain, Reports neck pain and Reports other (left shoulder pain) Neurologic: Denies headache(s) and Denies weakness PMFSH Past Medical History Medical History (Updated 03/08/21 @ 16:10 by Estelle White MD) Angina of effort Arthritis Asthma CAD (coronary atherosclerotic disease) Depression GERD (gastroesophageal reflux disease) H/O: HTN (hypertension) Hyperlipidemia Kidney stones Moderate persistent asthma without complication Obstructive sleep apnea (adult) (pediatric) OWEN (obstructive sleep apnea) Rhinitis Surgical History Surgical History History of cholecystectomy S/P appy Family History Family History Mother Cerebrovascular accident Family history of diabetes mellitus in first degree relative Father Family history of malignant neoplasm of kidney Family history of liver disease Carcinoma of colon Other Acute myocardial infarction Asthma Diabetes mellitus Family history of arthritis Family history of cardiovascular disease Family history of chronic obstruct
[2021-03-08] MEDS: fentaNYL CITRATE INJ (*CRX) 100 MCG/2 ML VIAL 50 MCG IV PUSH ×2 (11:40→13:15)
[2021-03-08] MEDS: traMADol HCL (*CRX) 50 MG TABLET PO (11:41)
[2021-03-08 12:41] VITALS: BP 126/88; PULSE 84; RESP 16; O2SAT 97
[2021-03-08 13:45] VITALS: TEMP 36.2
[2021-03-08] MEDS: TETANUS,DIPHTHERIA,AC PERTUSSIS ADULT (0.5 ML) BOOSTRIX IM (13:55)
[2021-03-08 14:20] VITALS: BP 139/92; PULSE 78; RESP 16; O2SAT 98
[2021-03-08] MEDS: oxyCODONE/ACETAMINOPHEN (*CRX) 5-325 MG TABLET 1 TABLET PO (15:11)
--- NOTE | 2021-03-08 16:11 | PC.NURSE ---
pt asked multiple times if she needed to be placed in [facility] to aid her with shoulder injury, pt denied stated that she wants to go home. pt was ambulated without gait change. provider witness ambulation. call placed to sibling for transport home
[2021-03-08 17:00] VITALS: BP 138/88; PULSE 70; RESP 20; O2SAT 97
== END 2021-03-08 17:02 | disposition home or self-care (01) ==
PROVIDERS: Emergency Provider Emergency Medicine; PCP Physician Assistant
DX: S42.222A 2-part displaced fracture of surgical neck of left humerus, initial encounter for closed fracture (principal); Z23 Encounter for immunization; I25.10 Atherosclerotic heart disease of native coronary artery without angina pectoris; I10 Essential (primary) hypertension; E78.5 Hyperlipidemia, unspecified; J45.40 Moderate persistent asthma, uncomplicated; G47.33 Obstructive sleep apnea (adult) (pediatric); K21.9 Gastro-esophageal reflux disease without esophagitis; M19.90 Unspecified osteoarthritis, unspecified site; Z87.442 Personal history of urinary calculi; Z79.82 Long term (current) use of aspirin; M19.022 Primary osteoarthritis, left elbow; Q71.22 Congenital absence of both forearm and hand, left upper limb; W19.XXXA Unspecified fall, initial encounter
CPT/HCPCS: 70450; 72125; 73030; 73060; 73070; 90471; 90715; 96374; 96376; 99284; A4565; A9270; J3010

== ENCOUNTER 2021-04-18 13:46 | Emergency (ER) | payer OTHER, SELFPAY ==
--- NOTE | ~2021-04-18 | XR_ITS ---
EXAMINATION: XR hip LT min 2V DATE: 04/18/2021 14:55 INDICATION: Left hip pain. Fall one month ago. TECHNIQUE: 2 views of left hip were obtained. COMPARISON: Left hip radiographs 08/05/2017 FINDINGS: Bone alignment is normal. No fracture. There are dystrophic calcifications of the acetabula r labrum. Left hip joint space is normal. IMPRESSION: 1. No fracture. Reviewed, dictated and finalized at location A. IMPRESSION: 1. No fracture.
[2021-04-18 13:56] VITALS: BP 115/63; PULSE 99; RESP 18; TEMP 36.6; O2SAT 100
--- NOTE | 2021-04-18 14:44 | ED.LOWEXIN ---
HPI - Extremity Injury (Lower) General Chief Complaint: Extremity Injury, Lower Stated Complaint: Left Hip Pain Time Seen by Provider: 04/18/21 14:44 Source: patient Mode of arrival: ambulatory Limitations: no limitations History of Present Illness HPI Narrative: Nohemy Roy is a 65 yo female with a PMH of an anxiety, depression, arthritis,HTN, GERD, who comes to [facility] with complaints of pain in her left hip that has been going on for a number of days but has today is 8 out of 10. She fell in early March and broke her shoulder and hurt her hip and knee. Her shoulder and knee were x-rayed at the time of the fall. Related Data Home Medications Medication Instructions Recorded Confirmed aspirin 81 mg tablet,delayed 81 mg PO DAILY 06/20/19 06/24/20 release bupropion HCl 150 mg 24 hr tablet, 150 mg PO QAM 06/20/19 06/24/20 extended release furosemide 20 mg tablet 20 mg PO QAM 06/20/19 06/24/20 hydroxychloroquine 200 mg tablet 200 mg PO DAILY 06/20/19 06/24/20 isosorbide mononitrate 60 mg 60 mg PO DAILY 06/20/19 06/24/20 tablet,extended release 24 hr methotrexate sodium 2.5 mg tablet 2.5 mg PO WEEKLY 06/20/19 06/24/20 montelukast 10 mg tablet 10 mg PO DAILY 06/20/19 06/24/20 potassium chloride 10 mEq 10 meq PO DAILY 06/20/19 06/24/20 tablet,extended release pravastatin 40 mg tablet 40 mg PO DAILY 06/20/19 06/24/20 tramadol 37.5 mg-acetaminophen 325 1 tablet PO Q6H PRN 06/20/19 06/24/20 mg tablet folic acid 1 mg tablet 1 mg PO DAILY 06/21/19 06/24/20 duloxetine 60 mg PO DAILY 08/20/19 06/24/20 pantoprazole 40 mg tablet,delayed 40 mg PO QAM 12/24/19 06/24/20 release upadacitinib 15 mg tablet,extended 15 mg PO DAILY 12/24/19 06/24/20 release 24 hr calcium carbonate-vitamin D2 tablet PO 03/08/21 [Calcium + Vitamin D] cholecalciferol (vitamin D3) 125 mcg PO DAILY 03/08/21 [Vitamin D3] cyclobenzaprine 5 mg PO HS PRN 03/08/21 docusate sodium [Colace] 100 mg PO BID 03/08/21 meloxicam 15 mg PO DAILY 03/08/21 potassium chloride 10 meq PO DAILY 03/08/21 03/08/21 zoledronic zhni-[id number]-[id number] 5 mg IV ONCE 03/08/21 [Reclast] Allergies Allergy/AdvReac Type Severity Reaction Status Date / Time meperidine Allergy Severe HIVES Verified 03/08/21 09:47 Penicillins Allergy Severe RASH Verified 03/08/21 09:47 hydrocodone Allergy Intermediate HIVES Verified 03/08/21 09:47 Review of Systems Review of Systems: CONSTITUTIONAL: Denies fever, chills, sweats. EYES: Denies visual changes, redness, discharge. ENT: Denies rhinorrhea, congestion, sore throat, otalgia. CARDIOVASCULAR: Denies chest pain, palpitations, edema. RESPIRATORY: Denies dyspnea, wheezing, cough GASTROINTESTINAL: Denies abdominal pain, nausea, vomiting, diarrhea. GENITOURINARY: Denies dysuria, hematuria, abnormal discharge SKIN: Denies rash or itching. NEUROLOGIC: Denies numbness, or focal weakness. PSYCHIATRIC: Denies anxiety or depression. Left hip pain PMFSH Past Medical History Medical History (Updated 04/18/21 @ 14:59 by Courtney Saleh CNP) Angina of effort Arthritis Asthma CAD (coronary atherosclerotic disease) Depression GERD (gastroesophageal reflux disease) H/O: HTN (hypertension) Hyperlipidemia Kidney stones Moderate persistent asthma without complication Obstructive sleep apnea (adult) (pediatric) OWEN (obstructive sleep apnea) Rhinitis Surgical History Surgical History History of cholecystectomy S/P appy Family History Family History Mother Cerebrovascular accident Family history of diabetes mellitus in first degree relative Father Family history of malignant neoplasm of kidney Family history of liver disease Carcinoma of colon Other Acute myocardial infarction Asthma Diabetes mellitus Family history of arthritis Family history of cardiovascular disease Family history of chronic ob
== END 2021-04-18 15:24 | disposition home or self-care (01) ==
PROVIDERS: Emergency Provider Nurse Practitioner; PCP Physician Assistant
DX: M25.552 Pain in left hip (principal); M19.90 Unspecified osteoarthritis, unspecified site; I25.10 Atherosclerotic heart disease of native coronary artery without angina pectoris; K21.9 Gastro-esophageal reflux disease without esophagitis; I10 Essential (primary) hypertension; E78.5 Hyperlipidemia, unspecified; G47.33 Obstructive sleep apnea (adult) (pediatric); F32.A Depression, unspecified
CPT/HCPCS: 73502; 99213; G0463

== ENCOUNTER 2021-05-29 10:11 | Outpatient (CLI) | payer OTHER, SELFPAY ==
--- NOTE | ~2021-05-29 | MM_ITS ---
EXAMINATION: MM screening yuriy BI w deshawn HISTORY: Screening mammogram TECHNIQUE: Craniocaudal and mediolateral oblique 3-D tomosynthesis images were obtained and synthetic 2-D images were generated. CAD analysis was submitted and interpreted. COMPARISON: 04/25/2020, 04/23/2019, 03/15/2018, 01/27/2017, 10/14/2015 bilateral screening mammogram exa minations BREAST PARENCHYMAL COMPOSITION: There are scattered areas of fibroglandular density. FINDINGS: Again noted are benign calcifications, more numerous on the right. There is no evidence of suspicious mass, calcification, or architectural distortion to suggest malignancy in either breast. T here has been no suspicious interval change. IMPRESSION: 1. No mammographic evidence of malignancy. 2. Recommend routine screening mammography in one year. BI-RADS Category 2: Benign finding(s). Reviewed, dictated and finalized at location A. 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
== END 2021-05-29 10:12 | disposition home or self-care (01) ==
LOC: ANHIMG 10:13
PROVIDERS: PCP Family Medicine; Visit Provider Physician Assistant
DX: Z12.31 Encounter for screening mammogram for malignant neoplasm of breast (principal)
CPT/HCPCS: 77063; 77067

== ENCOUNTER 2021-07-27 00:52 | Day surgery (SDC) | payer OTHER, SELFPAY ==
[2021-07-14 14:25] VITALS: BMI 37.8
[2021-07-27 06:44] VITALS: BP 154/74; PULSE 95; RESP 22; TEMP 36.6; O2SAT 98; BMI 37.5
--- NOTE | 2021-07-27 07:06 | WPDANESEPPF ---
Anes - Initial Pre Proc Eval Procedure: Operation Date: 07/27/21 07:30 Proposed Procedures p Screening Colonoscopy - Sharan Linton MD Date/Time: 07/27/21 07:06 Surgeon: Sharan Linton MD Pre Op Diagnosis: family hx of colon ca Patient Data Age: 66 Gender: F Height: 1.63 m Weight: 99.2 kg Last Vital Signs Temp 36.6 C 07/27/21 06:44 Pulse 95 07/27/21 06:44 Resp 22 H 07/27/21 06:44 BP 154/74 H 07/27/21 06:44 Pulse Ox 98 07/27/21 06:44 Allergies Allergy/AdvReac Type Severity Reaction Status Date / Time meperidine Allergy Severe HIVES Verified 07/27/21 06:43 Penicillins Allergy Severe RASH Verified 07/27/21 06:43 hydrocodone Allergy Intermediate HIVES Verified 07/27/21 06:43 Home Medications Medication Instructions Recorded Confirmed Type aspirin 81 mg tablet,delayed 81 mg PO DAILY 06/20/19 07/14/21 History release bupropion HCl 150 mg 24 hr tablet, 150 mg PO QAM 06/20/19 07/14/21 History extended release furosemide 20 mg tablet 40 mg PO QAM 06/20/19 07/14/21 History hydroxychloroquine 200 mg tablet 200 mg PO BID 06/20/19 07/14/21 History methotrexate sodium 2.5 mg tablet 25 mg PO WEEKLY 06/20/19 07/14/21 History montelukast 10 mg tablet 10 mg PO DAILY 06/20/19 07/14/21 History potassium chloride 10 mEq 10 meq PO BID 06/20/19 07/14/21 History tablet,extended release pravastatin 40 mg tablet 40 mg PO DAILY 06/20/19 07/14/21 History folic acid 1 mg tablet 2 mg PO DAILY 06/21/19 07/14/21 History duloxetine 60 mg PO DAILY 08/20/19 07/14/21 History upadacitinib 15 mg tablet,extended 15 mg PO DAILY 12/24/19 07/14/21 History release 24 hr calcium carbonate-vitamin D2 1 tablet PO BID 03/08/21 07/14/21 History [Calcium + Vitamin D] cholecalciferol (vitamin D3) 125 mcg PO DAILY 03/08/21 07/14/21 History [Vitamin D3] cyclobenzaprine 5 mg PO HS PRN 03/08/21 07/14/21 History docusate sodium [Colace] 200 mg PO BID 03/08/21 07/14/21 History zoledronic aemd-eoeccsvs-vmayg 5 mg IV ONCE 03/08/21 05/19/21 History [Reclast] linaclotide 290 mcg capsule 290 mcg PO DAILY 30 Days #30 cap 05/19/21 07/14/21 Rx pantoprazole 40 mg tablet,delayed 40 mg PO BID 30 Days #60 tablet 05/19/21 07/14/21 Rx release albuterol sulfate [ProAir HFA] 1 inh INHALATION QID PRN 07/14/21 07/14/21 History fluticasone propionate [Flonase] 1 spray INTRANASAL DAILY 07/14/21 07/14/21 History ipratropium bromide [Atrovent] 2.5 ml INHALATION Q6H PRN 07/14/21 07/14/21 History levalbuterol HCl [Xopenex] 1.25 mg INHALATION Q4H 07/14/21 07/14/21 History loratadine 10 mg PO DAILY 07/14/21 07/14/21 History mometasone-formoterol [Dulera] 2 puff INHALATION DAILY 07/14/21 07/14/21 History ropinirole 0.5 mg PO DAILY 07/14/21 07/14/21 History Patient hx anesthesia problems: none Family hx anesthesia problems: none Results Review: All pre-operative results and documents have been reviewed as part of the pre-operative evaluation. [facility] Past Medical History Medical History Angina of effort Arthritis Asthma CAD (coronary atherosclerotic disease) Depression GERD (gastroesophageal reflux disease) H/O: HTN (hypertension) Hyperlipidemia Kidney stones Moderate persistent asthma without complication Obese Obstructive sleep apnea (adult) (pediatric) OWEN (obstructive sleep apnea) Rhinitis Surgical History Surgical History History of cholecystectomy S/P appy Family History Family History Mother Cerebrovascular accident Family history of diabetes mellitus in first degree relative Father Family history of malignant neoplasm of kidney Family history of liver disease Carcinoma of colon Other Acute myocardial infarction Asthma Diabetes mellitus Family history of arthritis Family history of cardiovascular disease Family history of chronic obstructive pulmon
[2021-07-27] MEDS: LACTATED RINGERS 1,000 ML 150 ML IV CONT (07:25)
--- NOTE | 2021-07-27 07:30 | WPDGICN ---
Assessment and Plan Assessment and plan (1) Family history of colon cancer in father: Code(s): Z80.0 - Family history of malignant neoplasm of digestive organs Status: Acute Assessment and Plan: Patient's father had colon cancer. Patient herself has had colon polyps in the past. Plan is for surveillance colonoscopy at 5 year intervals. (2) GERD (gastroesophageal reflux disease): Code(s): K21.9 - Gastro-esophageal reflux disease without esophagitis Status: Acute Assessment and Plan: Patient with long history of GE reflux. Inconsistent response to pantoprazole 40mg p.o. b.i.d.. Plan to try Nexium 40mg p.o. b.i.d. as an alternative. GI Consult Note Consult date/time: 07/27/21 07:30 HPI: Nohemy Roy is a 66 year old female Presents for screening colonoscopy. Her weight appetite bowel movements are normal. Her family history is significant her father had colon cancer. Patient herself has had colon polyps. Most recent colonoscopy 2015. She presents today for surveillance colonoscopy. Additionally patient has complaints of acid reflux and heartburn. EGD in 2019 was performed because of GE reflux no significant Dupree's esophagus was identified. She has been maintained on pantoprazole 40mg p.o. b.i.d. with inconsistent results. She wishes to try another PPI therapy she denies any bleeding. She has had no weight loss. Review of Systems Review of Systems: All systems reviewed & are unremarkable except as noted in HPI and below PMFSH Past Medical History Medical History Angina of effort Arthritis Asthma CAD (coronary atherosclerotic disease) Depression GERD (gastroesophageal reflux disease) H/O: HTN (hypertension) Hyperlipidemia Kidney stones Moderate persistent asthma without complication Obese Obstructive sleep apnea (adult) (pediatric) OWEN (obstructive sleep apnea) Rhinitis Surgical History Surgical History History of cholecystectomy S/P appy Family History Family History Mother Cerebrovascular accident Family history of diabetes mellitus in first degree relative Father Family history of malignant neoplasm of kidney Family history of liver disease Carcinoma of colon Other Acute myocardial infarction Asthma Diabetes mellitus Family history of arthritis Family history of cardiovascular disease Family history of chronic obstructive pulmonary disease Family history of congestive heart failure Hypertension Malignant neoplasm of prostate Social History Social History Smoking status: Never smoker Alcohol intake: never Living arrangements: alone Meds Home Medications and Allergies Home Medications Medication Instructions Recorded Confirmed Type aspirin 81 mg tablet,delayed 81 mg PO DAILY 06/20/19 07/14/21 History release bupropion HCl 150 mg 24 hr tablet, 150 mg PO QAM 06/20/19 07/14/21 History extended release furosemide 20 mg tablet 40 mg PO QAM 06/20/19 07/14/21 History hydroxychloroquine 200 mg tablet 200 mg PO BID 06/20/19 07/14/21 History methotrexate sodium 2.5 mg tablet 25 mg PO WEEKLY 06/20/19 07/14/21 History montelukast 10 mg tablet 10 mg PO DAILY 06/20/19 07/14/21 History potassium chloride 10 mEq 10 meq PO BID 06/20/19 07/14/21 History tablet,extended release pravastatin 40 mg tablet 40 mg PO DAILY 06/20/19 07/14/21 History folic acid 1 mg tablet 2 mg PO DAILY 06/21/19 07/14/21 History duloxetine 60 mg PO DAILY 08/20/19 07/14/21 History upadacitinib 15 mg tablet,extended 15 mg PO DAILY 12/24/19 07/14/21 History release 24 hr calcium carbonate-vitamin D2 1 tablet PO BID 03/08/21 07/14/21 History [Calcium + Vitamin D] cholecalciferol (vitamin D3) 125 mcg PO DAILY 03/08/21 07/14/21 History [Tracy
[2021-07-27 07:55] VITALS: BP 95/31; PULSE 84; RESP 18; O2SAT 99
[2021-07-27 08:05] VITALS: BP 101/45; PULSE 80; RESP 18; O2SAT 100
[2021-07-27 08:15] VITALS: BP 110/49; PULSE 84; RESP 18; O2SAT 100
== END 2021-07-27 08:28 | disposition home or self-care (01) ==
PROVIDERS: PCP Family Medicine; Visit Provider Internal Medicine Gastroenterology
PROC: 0DJD8ZZ Inspection of Lower Intestinal Tract, Via Natural or Artificial Opening Endoscopic (ICD-10-PCS; CPT 45378; principal; 2021-07-27 07:30)
DX: Z12.11 Encounter for screening for malignant neoplasm of colon (principal); K64.8 Other hemorrhoids; Z80.0 Family history of malignant neoplasm of digestive organs; Z86.010 Personal history of colon polyps; J45.40 Moderate persistent asthma, uncomplicated; K21.9 Gastro-esophageal reflux disease without esophagitis; M19.90 Unspecified osteoarthritis, unspecified site; I10 Essential (primary) hypertension; I25.10 Atherosclerotic heart disease of native coronary artery without angina pectoris; F32.9 Major depressive disorder, single episode, unspecified; G47.33 Obstructive sleep apnea (adult) (pediatric); Z90.49 Acquired absence of other specified parts of digestive tract; Z79.82 Long term (current) use of aspirin; Z79.51 Long term (current) use of inhaled steroids
CPT/HCPCS: G0105; J2704; J7120

== ENCOUNTER 2022-03-05 09:21 | Emergency (ER) | payer OTHER, SELFPAY ==
--- NOTE | ~2022-03-05 | XR_ITS ---
EXAMINATION: XR knee RT min 4V DATE: 03/05/2022 09:47 INDICATION: Right knee pain. TECHNIQUE: 4 views of right knee were obtained. COMPARISON: Right knee radiographs 02/02/2021 FINDINGS: Bone alignment is normal. No fracture. There is mild osteoarthritis of medial and lateral c ompartments. There is a small knee joint effusion. IMPRESSION: 1. Mild right knee osteoarthritis. 2. Small right knee joint effusion. Reviewed, dictated and finalized at location A.
--- NOTE | 2022-03-05 09:27 | ED.LOWEXIN ---
HPI - Extremity Injury (Lower) General Chief Complaint: Extremity Injury, Lower Stated Complaint: rt knee pain Time Seen by Provider: 03/05/22 09:33 Source: patient, RN notes reviewed and old records reviewed Mode of arrival: ambulatory Limitations: no limitations History of Present Illness HPI Narrative: 66-year-old female with complaints of right knee pain. Patient states that she was at the bone doctor yesterday and she went to climb up on the exam table when she twisted her knee. States that she is already seeing Ortho for both her knees. Is walking with a limp gait. No swelling noted. Tenderness to the lateral aspect Related Data Home Medications Medication Instructions Recorded Confirmed aspirin 81 mg tablet,delayed 81 mg PO DAILY 06/20/19 07/14/21 release (Adult Low Dose Aspirin) bupropion HCl 150 mg 24 hr tablet, 150 mg PO QAM 06/20/19 07/14/21 extended release furosemide 20 mg tablet 40 mg PO QAM 06/20/19 07/14/21 hydroxychloroquine 200 mg tablet 200 mg PO BID 06/20/19 07/14/21 methotrexate sodium 2.5 mg tablet 25 mg PO WEEKLY 06/20/19 07/14/21 montelukast 10 mg tablet 10 mg PO DAILY 06/20/19 07/14/21 potassium chloride 10 mEq 10 meq PO BID 06/20/19 07/14/21 tablet,extended release pravastatin 40 mg tablet 40 mg PO DAILY 06/20/19 07/14/21 folic acid 1 mg tablet 2 mg PO DAILY 06/21/19 07/14/21 duloxetine 60 mg capsule,delayed 60 mg PO DAILY 08/20/19 07/14/21 release upadacitinib 15 mg tablet,extended 15 mg PO DAILY 12/24/19 07/14/21 release 24 hr (Rinvoq) calcium carb-ergocalciferol (vit 1 tablet PO BID 03/08/21 07/14/21 D2) 600 mg calcium-200 unit tablet cholecalciferol (vitamin D3) 125 125 mcg PO DAILY 03/08/21 07/14/21 mcg (5,000 unit) tablet (Vitamin D3) cyclobenzaprine 5 mg tablet 5 mg PO HS PRN Pain 03/08/21 07/14/21 docusate sodium 100 mg capsule 200 mg PO BID 03/08/21 07/14/21 (Colace) zoledronic acid 5 mg/100 mL in 5 mg IV ONCE 03/08/21 05/19/21 mannitol 5 %-water intravenous piggybck (Reclast) fluticasone propionate 50 1 spray intranasal DAILY 07/14/21 07/14/21 mcg/actuation nasal spray,suspension ipratropium bromide 0.02 % 2.5 ml inhalation Q6H PRN SOB 07/14/21 07/14/21 solution for inhalation levalbuterol HCl 1.25 mg/3 mL 1.25 mg inhalation Q4H 07/14/21 07/14/21 solution for nebulization (Xopenex) loratadine 10 mg tablet 10 mg PO DAILY 07/14/21 07/14/21 mometasone-formoterol HFA 200 2 puff inhalation DAILY 07/14/21 07/14/21 mcg-5 mcg/actuation aerosol inhaler (Dulera) ropinirole 0.5 mg tablet 0.5 mg PO DAILY 07/14/21 07/14/21 Allergies Allergy/AdvReac Type Severity Reaction Status Date / Time meperidine Allergy Severe HIVES Verified 03/05/22 09:33 Penicillins Allergy Severe RASH Verified 03/05/22 09:33 hydrocodone Allergy Intermediate HIVES Verified 03/05/22 09:33 Review of Systems Review of Systems: All systems reviewed & are unremarkable except as noted in HPI and below Constitutional: Constitutional: Reports no additional constitutional complaints, Denies chills and Denies fever(s) Eyes: Eyes: Reports no additional eye complaints ENT: Reports system reviewed and no additional complaints, except as documented Cardiovascular: Cardiovascular: Reports no additional cardiovascular complaints Respiratory: Respiratory: Reports no additional respiratory complaints Gastrointestinal: Gastrointestinal: Reports no additional gastrointestinal complaints Musculoskeletal: Musculoskeletal: Reports as per HPI and Reports arthralgias (Right knee) Integumentary/Breasts: Skin/Breast: Reports system reviewed and no additional complaints, except as docu Neurologic: Reports system reviewed and no additional complaints, except as documented Psychiatric: Psychiatric: Reports no additional psychiatric complaints Allergic/Immunologic: Allergic/Immunologic: Reports no additional allergic/immunologic complaints PMFSH Past Medical History Medical History (Re
[2022-03-05 09:32] VITALS: BP 99/49; PULSE 83; RESP 20; TEMP 35.9; O2SAT 99
== END 2022-03-05 10:10 | disposition home or self-care (01) ==
PROVIDERS: Emergency Provider Nurse Practitioner; PCP Physician Assistant
DX: S83.91XA Sprain of unspecified site of right knee, initial encounter (principal); X50.9XXA Other and unspecified overexertion or strenuous movements or postures, initial encounter; M25.461 Effusion, right knee; M17.11 Unilateral primary osteoarthritis, right knee; J45.909 Unspecified asthma, uncomplicated; I25.10 Atherosclerotic heart disease of native coronary artery without angina pectoris; K21.9 Gastro-esophageal reflux disease without esophagitis; I10 Essential (primary) hypertension; E78.5 Hyperlipidemia, unspecified; G47.33 Obstructive sleep apnea (adult) (pediatric); E66.9 Obesity, unspecified; Z68.39 Body mass index [BMI] 39.0-39.9, adult; F32.A Depression, unspecified; Z79.82 Long term (current) use of aspirin
CPT/HCPCS: 73564; 99213; G0463

== ENCOUNTER 2022-05-31 07:01 | Outpatient (CLI) | payer OTHER, SELFPAY ==
--- NOTE | ~2022-05-31 | MM_ITS ---
EXAMINATION: MM screening [facility] BI w deshawn HISTORY: Screening mammogram TECHNIQUE: Craniocaudal and mediolateral oblique 3-D tomosynthesis images were obtained and synthetic 2-D images were generated. CAD analysis was submitted and interpreted. COMPARISON: 05/29/2021, 04/25/2020, 04/23/2019 BREAST PARENCHYMAL COMPOSITION: There are scattered areas of fibroglandular density. FINDINGS: Scattered benign-appearing calcifications are present. No suspicious mass, calcification, o r architectural distortion are identified in either breast to suggest malignancy. There has been no s uspicious interval change. IMPRESSION: 1. No mammographic evidence of malignancy. 2. Recommend routine screening mammography in one year. BI-RADS Category 2: Benign finding(s). Reviewed, dictated and finalized at location A. INE MECHANIC
== END 2022-05-31 07:02 | disposition home or self-care (01) ==
LOC: ANHIMG 07:03
PROVIDERS: PCP Physician Assistant; Visit Provider Physician Assistant
DX: Z12.31 Encounter for screening mammogram for malignant neoplasm of breast (principal)
CPT/HCPCS: 77063; 77067

== ENCOUNTER 2022-06-21 09:06 | Outpatient (CLI) | payer OTHER, SELFPAY ==
--- NOTE | ~2022-06-21 | XR_ITS ---
EXAMINATION: UGI AIR CONTRAST W/ ESOPHAGRAM DATE: 09/15/07 09:43:00 INDICATION: Gastroesophageal reflux disease with esophagitis. TECHNIQUE: Thick barium contrast with and without gas effervescent crystals were administered orally. Fluoroscopic images of the esophagus, stomach, and proximal duodenum were obtained in various proje ctions. The hypopharynx was also imaged. Thereafter, overhead images of the thoracic esophagus and ab domen were performed. 49 images. 0.6 minutes of fluoroscopy. FINDINGS: CT dated 02/13/2018 The esophagus is normal in caliber, without mucosal lesions or strictures. There is normal esophagea l peristalsis. There is a small sliding hiatal hernia with gastroesophageal reflux. There are subtle mucosal irregularity of the distal esophagus, concerning for esophagitis. The hypopharynx is normal. The gastric folds are normal. The proximal duodenum is also normal in appearance. IMPRESSION: 1. Small sliding hiatal hernia with gastroesophageal reflux. Probable mild distal esophagitis. Reviewed, dictated and finalized at location A. L FABRICATING INSPECTOR IMPRESSION: 1. Small sliding hiatal hernia with gastroesophageal reflux. Probable mild dis roney esophagitis.
== END 2022-06-21 09:07 | disposition home or self-care (01) ==
LOC: ANHIMG 09:08
PROVIDERS: PCP Physician Assistant; Visit Provider Nurse Practitioner Family
DX: K21.9 Gastro-esophageal reflux disease without esophagitis (principal); K44.9 Diaphragmatic hernia without obstruction or gangrene
CPT/HCPCS: 74240

== ENCOUNTER 2022-07-08 14:42 | Outpatient (CLI) | payer OTHER, SELFPAY ==
--- NOTE | ~2022-07-08 | CT_ITS ---
EXAMINATION: CT abdomen pelvis wo con DATE: 07/08/2022 17:04 INDICATION: Flank pain TECHNIQUE: Computed tomography (CT) of the abdomen and pelvis was performed without intravenous contr ast. The dose-length product was 1459.37 mGy-cm. Automated exposure control and iterative reconstruct ion technique were employed. COMPARISON: CT dated 02/13/2018. FINDINGS: Calcified granuloma right lower lobe. No focal airspace consolidation. No pneumothorax. Hea rt size normal. No significant pleural or pericardial effusion. Status post cholecystectomy. There are calcified granulomas of the spleen. The pancreas is unremarkab le with fatty replacement. There are calcified granulomas of the stent liver. The adrenal glands are unremarkable. There are nonobstructing stones in the lower pole of the left kidney. No ureteral stone s or hydronephrosis. Low-density lesions in the kidneys, most likely benign cysts, largest measuring 2.6 cm in the right kidney anteriorly. No significant vascular abnormality. No lymphadenopathy. No fr ee air or free fluid. Small fat-containing umbilical hernia. There is mass effect on the bladder from both sides, causing an elongated narrow bladder, consistent with pelvic lipomatosis No bladder wall abnormality is seen. There is severe lumbar spondylosis with levoscoliosis. IMPRESSION: 1. Nonobstructing left nephrolithiasis. 2: Elongated narrow bladder, consistent with pelvic lipomatosis.. Reviewed, dictated and finalized at location A. N ENGINEER
[2022-07-08 18:15] LABS: Basophils Percent Auto 0.3 % (0.2-1.2); Eosinophils Percent Auto 0.6 % (0-4.4); Hematocrit 43.4 % (37.0-47.0); Hemoglobin 14.1 g/dL (12.0-15.0); Immature Granulocyte Absolute 0.02 K/mm3 (0.00-0.031); Immature Granulocyte Percent A 0.3 % (0-0.5); Lymphocytes Absolute Auto 0.57 K/mm3 (0.9-3.2); Lymphocytes Percent Auto 8.3 % (18.3-44.2); Mean Corpuscular HGB Conc 32.5 g/dl (32-36); Mean Corpuscular Hemoglobin 33.7 pg (26-34); Mean Corpuscular Volume 103.6 fl (80-100); Monocytes Absolute Auto 0.6 K/mm3 (0.1-0.6); Monocytes Percent Auto 8.9 % (2.6-8.5); Neutrophils Absolute Auto 5.6 K/mm3 (1.3-6.7); Neutrophils Percent Auto 81.6 % (45.5-73.1); Platelet Count Result 195 k/mm3 (150-375); Red Blood Count 4.19 M/mm3 (4.2-5.4); Red Cell Distribution Width 15.7 % (11.5-14.5); White Blood Count 6.9 K/mm3 (4.5-10.0)
[2022-07-08 18:30] LABS: Alanine Aminotransferase 31 U/L (6-35); Alkaline Phosphatase 139 U/L (38-126); Anion Gap 6 mmol/L (8-16); Aspartate Amino Transferase 34 U/L (14-36); Bilirubin,Total 0.7 mg/dL (0.2-1.3); Blood Urea Nitrogen 16 mg/dL (7-17); Calcium 8.9 mg/dL (8.4-10.2); Carbon Dioxide 23 mmol/L (22-30); Chloride 108 mmol/L (98-107); Estimated Glomerular Filt Rate > 60; Glucose 85 mg/dL (65-110); Potassium 3.8 mmol/L (3.4-5.0); Sodium 137 mmol/L (137-145)
== END 2022-07-08 14:43 | disposition home or self-care (01) ==
PROVIDERS: PCP Physician Assistant; Visit Provider Physician Assistant
DX: R10.9 Unspecified abdominal pain (principal); N20.0 Calculus of kidney; Q64.79 Other congenital malformations of bladder and urethra
CPT/HCPCS: 36415; 74176; 80053; 85025

== ENCOUNTER 2022-08-11 14:46 | Emergency (ER) | payer OTHER, SELFPAY ==
[2022-08-11] VITALS (8 sets, daily range): BP systolic 115–134; BP diastolic 66–88; PULSE 107; RESP 14; TEMP 36.8; O2SAT 95–98
--- NOTE | 2022-08-11 17:41 | ED.FEMALEGU ---
HPI - Female Genitourinary General Chief complaint: Urogenital-Female Stated complaint: unable to urinate Time Seen by Provider: 08/11/22 17:19 History of Present Illness HPI Narrative: Patient is a 67-year-old female with a history of pelvic lipomatosis here for evaluation of urinary retention over the past day. Patient states that this morning she dribbled small amounts of urine despite feeling urges to urinate, and since then she has been unable to pass any urine despite her efforts. She does have a history of pelvic lipomatosis for which she follows with urologist at [place]. She was recently placed on Myrbetriq for urge incontinence. She contacted her urologist who recommended she come to the ED to have the catheter placed and set up an appointment with her for next week to have it removed. Patient additionally is reporting some discomfort in her right flank but she tells me it has been there for years and is no worse than usual. No fevers, chills, nausea, vomiting. Related Data Home Medications Medication Instructions Recorded Confirmed aspirin 81 mg tablet,delayed 81 mg PO DAILY 06/20/19 07/22/22 release (Adult Low Dose Aspirin) bupropion HCl 150 mg 24 hr tablet, 150 mg PO QAM 06/20/19 07/22/22 extended release furosemide 20 mg tablet 40 mg PO QAM 06/20/19 07/22/22 hydroxychloroquine 200 mg tablet 200 mg PO BID 06/20/19 07/22/22 methotrexate sodium 2.5 mg tablet 25 mg PO WEEKLY 06/20/19 07/22/22 montelukast 10 mg tablet 10 mg PO DAILY 06/20/19 07/22/22 potassium chloride 10 mEq 10 meq PO BID 06/20/19 07/22/22 tablet,extended release pravastatin 40 mg tablet 40 mg PO DAILY 06/20/19 07/22/22 folic acid 1 mg tablet 2 mg PO DAILY 06/21/19 07/22/22 duloxetine 60 mg capsule,delayed 60 mg PO DAILY 08/20/19 07/22/22 release upadacitinib 15 mg tablet,extended 15 mg PO DAILY 12/24/19 07/22/22 release 24 hr (Rinvoq) calcium carb-ergocalciferol (vit 1 tablet PO BID 03/08/21 07/22/22 D2) 600 mg calcium-200 unit tablet cholecalciferol (vitamin D3) 125 125 mcg PO DAILY 03/08/21 07/22/22 mcg (5,000 unit) tablet (Vitamin D3) cyclobenzaprine 5 mg tablet 5 mg PO HS PRN Pain 03/08/21 07/22/22 docusate sodium 100 mg capsule 200 mg PO BID 03/08/21 07/22/22 (Colace) zoledronic acid 5 mg/100 mL in 5 mg IV ONCE 03/08/21 07/22/22 mannitol 5 %-water intravenous piggybck (Reclast) ropinirole 0.5 mg tablet 0.5 mg PO DAILY 07/14/21 07/22/22 Allergies Allergy/AdvReac Type Severity Reaction Status Date / Time meperidine Allergy Severe HIVES Verified 07/22/22 13:08 Penicillins Allergy Severe RASH Verified 07/22/22 13:08 hydrocodone Allergy Intermediate HIVES Verified 07/22/22 13:08 Review of Systems Review of Systems: Gen.: Denies fevers or chills Eyes: Denies eye pain or visual change ENT: Denies congestion Respiratory: Denies shortness of breath or cough CV: Denies chest pain or palpitations GI: Denies abdominal pain nausea, emesis or diarrhea reports urinary retention Musculoskeletal: Denies back pain or muscle pain Neuro: Denies numbness, tingling, weakness or focal weakness Skin: Denies rash Except as documented, all other systems reviewed and negative [facility] Past Medical History Medical History Angina of effort Arthritis Asthma CAD (coronary atherosclerotic disease) Depression GERD (gastroesophageal reflux disease) H/O: HTN (hypertension) Hyperlipidemia Kidney stones Moderate persistent asthma without complication Obese Obstructive sleep apnea (adult) (pediatric) OWEN (obstructive sleep apnea) Rhinitis Surgical History Surgical History History of cholecystectomy S/P appy Family History Family History Mother Cerebrovascular accident Family history of diabetes mellitus in first degree relative Father Family history of
[2022-08-11 19:01] LABS: Basophils Percent Auto 0.4 % (0.2-1.2); Eosinophils Absolute Auto 0.1 K/mm3 (0-0.3); Eosinophils Percent Auto 0.6 % (0-4.4); Hematocrit 39.7 % (37.0-47.0); Immature Granulocyte Absolute 0.02 K/mm3 (0.00-0.031); Immature Granulocyte Percent A 0.3 % (0-0.5); Lymphocytes Absolute Auto 0.51 K/mm3 (0.9-3.2); Lymphocytes Percent Auto 6.6 % (18.3-44.2); Mean Corpuscular HGB Conc 32.7 g/dl (32-36); Mean Corpuscular Hemoglobin 34.2 pg (26-34); Mean Corpuscular Volume 104.5 fl (80-100); Mean Platelet Volume 9.6 fl (7.4-10.4); Monocytes Absolute Auto 0.8 K/mm3 (0.1-0.6); Monocytes Percent Auto 10.4 % (2.6-8.5); Neutrophils Absolute Auto 6.3 K/mm3 (1.3-6.7); Neutrophils Percent Auto 81.7 % (45.5-73.1); Platelet Count Result 285 k/mm3 (150-375); Red Cell Distribution Width 16.6 % (11.5-14.5); White Blood Count 7.8 K/mm3 (4.5-10.0)
[2022-08-11 19:18] LABS: Add Urine Microscopic? NO; Appearance Urine Clear (Clear); Bilirubin Urine Negative (Negative); Blood Urine Negative (Negative); Color Urine Yellow (Yellow); Glucose Urine UA Negative (Negative); Ketones Urine Negative (Negative); Leukocyte Esterase Ur Negative LEU/UL (Negative); Nitrate Urine Negative (Negative); Protein Urine Negative (Negative); Urobilinogen Urine 0.2 mg/dL (<2.0)
--- NOTE | 2022-08-11 19:22 | PC.NURSE ---
Patient report given to JULIUS Sotomayor. All questions answered and care of patient transferred.
[2022-08-11 19:25] LABS: Alanine Aminotransferase 30 U/L (6-35); Albumin Level 3.6 g/dL (3.5-5.1); Alkaline Phosphatase 133 U/L (38-126); Anion Gap 3 mmol/L (8-16); Aspartate Amino Transferase 44 U/L (14-36); Bilirubin,Total 0.5 mg/dL (0.2-1.3); Blood Urea Nitrogen 15 mg/dL (7-17); Calcium 8.7 mg/dL (8.4-10.2); Carbon Dioxide 24 mmol/L (22-30); Chloride 111 mmol/L (98-107); Estimated CRCL calculation 69 ml/min; Estimated Glomerular Filt Rate > 60; Glucose 84 mg/dL (65-110); Lipase 54 U/L (23-300); Potassium 4.3 mmol/L (3.4-5.0); Sodium 138 mmol/L (137-145)
== END 2022-08-11 20:48 | disposition home or self-care (01) ==
PROVIDERS: Emergency Medicine; Emergency Provider Physician Assistant; PCP Physician Assistant
DX: R33.9 Retention of urine, unspecified (principal); M19.90 Unspecified osteoarthritis, unspecified site; J45.909 Unspecified asthma, uncomplicated; I25.10 Atherosclerotic heart disease of native coronary artery without angina pectoris; F32.9 Major depressive disorder, single episode, unspecified; K21.9 Gastro-esophageal reflux disease without esophagitis; I10 Essential (primary) hypertension; E78.5 Hyperlipidemia, unspecified
CPT/HCPCS: 36415; 51702; 80053; 81003; 83690; 85025; 99283

== ENCOUNTER 2022-10-31 15:37 | Emergency (ER) | payer OTHER, SELFPAY ==
--- NOTE | ~2022-10-31 | XR_ITS ---
EXAMINATION: XR chest 2V DATE: 10/31/2022 16:54 INDICATION: Edema TECHNIQUE: AP and lateral views of the chest are obtained. COMPARISON: 04/02/2020 FINDINGS: The lungs are free of acute opacities. No pleural effusion or pneumothorax. The cardiomedia stinal silhouette is normal. There is moderate thoracic spondylosis. IMPRESSION: 1. No acute cardiopulmonary abnormality. Reviewed, dictated and finalized at location F.
--- NOTE | ~2022-10-31 | CT_ITS ---
EXAMINATION: CTA chest PE protocol DATE: 10/31/2022 20:00 INDICATION: Chest and back pain TECHNIQUE: Computed tomography angiography (CTA) of the chest was performed with 100 mL Omnipaque-350 intravenous contrast timed to evaluate the pulmonary arteries. Coronal maximum intensity projection 3D-reconstructions were created by the technologist. The dose-length product (DLP) was 740.25 mGy-cm. Automated exposure control and iterative reconstruction technique were employed. COMPARISON: 10/01/2015 FINDINGS: The pulmonary arteries are well-opacified. No pulmonary embolism is identified. No pleural effusion or pneumothorax. No pathologically enlarged thoracic lymph nodes are identified. The heart s ize is normal. There is mild atelectasis. Calcified pulmonary nodules and calcified right hilar lymph nodes are consistent with old granulomatous disease. There is a stable 4.7 cm mass in the caudate of the liver, previously characterized as a hemangioma. Healed rib fractures are noted. There is severe lower thoracic spondylosis. IMPRESSION: 1. No pulmonary embolism or acute cardiopulmonary abnormality. Reviewed, dictated and finalized at location F.
[2022-10-31 15:39] VITALS: BP 143/72; PULSE 124; RESP 20; TEMP 36.3; O2SAT 98
--- NOTE | 2022-10-31 16:35 | PC.NURSE ---
Dr. Mackenzie at bedside to assess pt.
--- NOTE | 2022-10-31 16:37 | ECG_ITS ---
Measurements Intervals [place] Rate: 93 P: 7 ME: 150 QRS: 15 QRSD: 85 T: 37 QT: 340 QTc: 425 Interpretive Statements SINUS RHYTHM RSR' IN V1 OR V2, CONSIDER RIGHT VENTRICULAR HYPERTROPHY OR RIGHT VCD LOW QRS VOLTAGE IN PRECORDIAL LEADS BORDERLINE ECG COMPARED TO ECG 04/02/2020 14:32:31 NO SIGNIFICANT CHANGES Electronically Signed On 11-01-2022 6:32:03 CDT by Faisal Gonzalez D.O.
[2022-10-31 17:20] LABS: Basophils Percent Auto 0.3 % (0.2-1.2); Eosinophils Absolute Auto 0.1 K/mm3 (0-0.3); Eosinophils Percent Auto 1.5 % (0-4.4); Hematocrit 39.8 % (37.0-47.0); Hemoglobin 13.1 g/dL (12.0-15.0); Immature Granulocyte Absolute 0.02 K/mm3 (0.00-0.031); Immature Granulocyte Percent A 0.3 % (0-0.5); Lymphocytes Absolute Auto 0.39 K/mm3 (0.9-3.2); Lymphocytes Percent Auto 6.7 % (18.3-44.2); Mean Corpuscular HGB Conc 32.9 g/dl (32-36); Mean Corpuscular Hemoglobin 33.9 pg (26-34); Mean Corpuscular Volume 103.1 fl (80-100); Mean Platelet Volume 9.1 fl (7.4-10.4); Monocytes Absolute Auto 0.8 K/mm3 (0.1-0.6); Neutrophils Absolute Auto 4.6 K/mm3 (1.3-6.7); Neutrophils Percent Auto 78.2 % (45.5-73.1); Platelet Count Result 244 k/mm3 (150-375); Red Blood Count 3.86 M/mm3 (4.2-5.4); Red Cell Distribution Width 14.9 % (11.5-14.5); White Blood Count 5.9 K/mm3 (4.5-10.0)
--- NOTE | 2022-10-31 17:21 | ED.EXTPRO ---
HPI - Extremity Problem General Chief complaint: Extremity Problem,Nontraumatic Stated complaint: legs swollen Time Seen by Provider: 10/31/22 16:16 Source: patient and RN notes reviewed Mode of arrival: ambulatory Limitations: no limitations History of Present Illness HPI Narrative: This is a 67 year old female with history of rheumatoid arthritis, restless leg who presents for evaluation of bilateral leg swelling. She reports bilateral leg swelling for 2 weeks. She states it does not improve with elevation. She has having worsening pain in her legs due to the swelling, and she states she is having difficulty walking. She was started on lasix 2 years ago and she states she has taken 3 doses without improvement. She denies history of CHF, kidney disease, DVT, liver disease. She denies chest pain or shortness of breath. She does reports back pain Related Data Home Medications Medication Instructions Recorded Confirmed aspirin 81 mg tablet,delayed 81 mg PO DAILY 06/20/19 09/07/22 release (Adult Low Dose Aspirin) bupropion HCl 150 mg 24 hr tablet, 150 mg PO QAM 06/20/19 09/07/22 extended release furosemide 20 mg tablet 40 mg PO QAM 06/20/19 09/07/22 hydroxychloroquine 200 mg tablet 200 mg PO BID 06/20/19 09/07/22 methotrexate sodium 2.5 mg tablet 25 mg PO WEEKLY 06/20/19 09/07/22 montelukast 10 mg tablet 10 mg PO DAILY 06/20/19 09/07/22 potassium chloride 10 mEq 10 meq PO BID 06/20/19 09/07/22 tablet,extended release pravastatin 40 mg tablet 40 mg PO DAILY 06/20/19 09/07/22 folic acid 1 mg tablet 2 mg PO DAILY 06/21/19 09/07/22 duloxetine 60 mg capsule,delayed 60 mg PO DAILY 08/20/19 09/07/22 release upadacitinib 15 mg tablet,extended 15 mg PO DAILY 12/24/19 09/07/22 release 24 hr (Rinvoq) calcium carb-ergocalciferol (vit 1 tablet PO BID 03/08/21 09/07/22 D2) 600 mg calcium-200 unit tablet cholecalciferol (vitamin D3) 125 125 mcg PO DAILY 03/08/21 09/07/22 mcg (5,000 unit) tablet (Vitamin D3) cyclobenzaprine 5 mg tablet 5 mg PO HS PRN Pain 03/08/21 09/07/22 docusate sodium 100 mg capsule 200 mg PO BID 03/08/21 09/07/22 (Colace) zoledronic acid 5 mg/100 mL in 5 mg IV ONCE 03/08/21 09/07/22 mannitol 5 %-water intravenous piggybck (Reclast) ropinirole 0.5 mg tablet 0.5 mg PO DAILY 07/14/21 09/07/22 tamsulosin 0.4 mg capsule (Flomax) 0.4 mg PO DAILY 09/07/22 09/07/22 Allergies Allergy/AdvReac Type Severity Reaction Status Date / Time meperidine Allergy Severe HIVES Verified 10/31/22 21:59 Penicillins Allergy Severe RASH Verified 10/31/22 21:59 hydrocodone Allergy Intermediate HIVES Verified 10/31/22 21:59 Review of Systems Review of Systems: All systems reviewed & are unremarkable except as noted in HPI and below PMFSH Past Medical History Medical History Angina of effort Arthritis Asthma CAD (coronary atherosclerotic disease) Depression GERD (gastroesophageal reflux disease) H/O: HTN (hypertension) Hyperlipidemia Kidney stones Moderate persistent asthma without complication Obese Obstructive sleep apnea (adult) (pediatric) OWEN (obstructive sleep apnea) Rhinitis Surgical History Surgical History History of cholecystectomy S/P appy Family History Family History Mother Cerebrovascular accident Family history of diabetes mellitus in first degree relative Father Family history of malignant neoplasm of kidney Family history of liver disease Carcinoma of colon Other Acute myocardial infarction Asthma Diabetes mellitus Family history of arthritis Family history of cardiovascular disease Family history of chronic obstructive pulmonary disease Family history of congestive heart failure Hypertension Malignant neoplasm of prostate Social History Social History
[2022-10-31 17:31] LABS: Partial Thromboplastin Time 26.1 SECONDS (22.3-36.8)
[2022-10-31 17:31] LABS: Alanine Aminotransferase 25 U/L (6-35); Albumin Level 3.9 g/dL (3.5-5.1); Alkaline Phosphatase 90 U/L (38-126); Anion Gap 5 mmol/L (8-16); Aspartate Amino Transferase 40 U/L (14-36); Bilirubin,Total 0.7 mg/dL (0.2-1.3); Blood Urea Nitrogen 19 mg/dL (7-17); Calcium 9.1 mg/dL (8.4-10.2); Carbon Dioxide 29 mmol/L (22-30); Chloride 105 mmol/L (98-107); Estimated CRCL calculation 68 ml/min; Estimated Glomerular Filt Rate > 60; Glucose 104 mg/dL (65-110); Potassium 3.8 mmol/L (3.4-5.0); Sodium 139 mmol/L (137-145)
[2022-10-31 17:38] LABS: NT Pro B Type Natriuretic Pept 68 pg/mL (19.9-100)
[2022-10-31 17:42] LABS: Troponin I < 0.012 ng/mL (0.000-0.034)
[2022-10-31 17:52] VITALS: BP 95/63; O2SAT 95
[2022-10-31] MEDS: FUROSEMIDE INJ 40 MG/4 ML VIAL IV PUSH (18:26)
[2022-10-31 19:18] VITALS: BP 118/57; PULSE 97; RESP 20; O2SAT 97
[2022-10-31 19:22] LABS: Appearance Urine Clear (Clear); Bilirubin Urine Negative (Negative); Blood Urine Negative (Negative); Color Urine Yellow (Yellow); Glucose Urine UA Negative (Negative); Ketones Urine Negative (Negative); Leukocyte Esterase Ur Negative LEU/UL (Negative); Nitrate Urine Negative (Negative); Protein Urine Negative (Negative); Urobilinogen Urine 0.2 mg/dL (<2.0)
[2022-10-31 19:23] LABS: Add Urine Microscopic? NO
--- NOTE | 2022-10-31 19:24 | PC.NURSE ---
Patient report given to JULIUS Mccallum. All questions answered and care of patient transferred.
[2022-10-31 20:26] VITALS: BP 118/60; PULSE 100; RESP 22; O2SAT 93
[2022-10-31 21:46] VITALS: BP 103/56; PULSE 97; RESP 15; O2SAT 93
[2022-10-31] MEDS: ENOXAPARIN 100 MG/ML SYRINGE SUB-Q (21:59)
[2022-10-31] MEDS: DOXYCYCLINE HYCLATE 100 MG TABLET PO (21:59)
[2022-10-31 22:03] VITALS: PULSE 97; RESP 16; O2SAT 94
== END 2022-10-31 22:04 | disposition home or self-care (01) ==
PROVIDERS: Emergency Provider General Practice; PCP Physician Assistant
DX: L03.116 Cellulitis of left lower limb (principal); L03.115 Cellulitis of right lower limb; R60.9 Edema, unspecified; M19.90 Unspecified osteoarthritis, unspecified site; J45.909 Unspecified asthma, uncomplicated; I25.10 Atherosclerotic heart disease of native coronary artery without angina pectoris; F32.A Depression, unspecified; K21.9 Gastro-esophageal reflux disease without esophagitis; Z87.442 Personal history of urinary calculi; G47.30 Sleep apnea, unspecified
CPT/HCPCS: 36415; 71046; 71275; 80053; 81003; 83880; 84484; 85025; 85380; 85610; 85730; 93005; 96372; 96374; 99284; A9270; J1650; J1940; Q9967

== ENCOUNTER 2022-11-01 06:49 | Outpatient (CLI) | payer OTHER, SELFPAY ==
--- NOTE | ~2022-11-01 | US_ITS ---
Duplex Sonography of the bilateral lower extremities: Indication: Swelling Sagittal and transverse B-mode images as well as color-flow imaging were performed on the right and l eft femoral and popliteal veins. B-mode examination was done without and with compression in the tra nsverse plane. There is good visualization of the bilateral common femoral, proximal profunda femora l, superficial femoral, greater saphenous, and popliteal veins. Normal flow was seen on color-flow im aging. Normal compressibility was demonstrated. Posterior tibial and peroneal veins are also patent bilaterally. Impression: No evidence of deep vein thrombosis involving either lower extremity. Reviewed, dictated and finalized at location M. Impression: No evidence of deep vein thrombosis involving either lower extremit y.
== END 2022-11-01 06:50 | disposition home or self-care (01) ==
PROVIDERS: PCP Physician Assistant; Visit Provider General Practice
DX: M79.89 Other specified soft tissue disorders (principal)
CPT/HCPCS: 93970

== ENCOUNTER 2022-11-05 09:43 | Emergency (ER) | payer OTHER, SELFPAY ==
[2022-11-05 09:52] VITALS: BP 118/76; PULSE 95; RESP 18; TEMP 36.9; O2SAT 98
[2022-11-05 10:47] LABS: Appearance Urine Clear (Clear); Bilirubin Urine Negative (Negative); Blood Urine Negative (Negative); Color Urine Yellow (Yellow); Glucose Urine UA Negative (Negative); Ketones Urine Negative (Negative); Leukocyte Esterase Ur Negative LEU/UL (Negative); Nitrate Urine Negative (Negative); Protein Urine Negative (Negative); Specific Grav Ur 1.013 (1.001-1.035); Urobilinogen Urine 0.2 mg/dL (<2.0)
[2022-11-05 10:51] LABS: Add Urine Microscopic? NO
--- NOTE | 2022-11-05 12:34 | ED.GENADULT ---
HPI - General Adult General Chief complaint: Neck Pain/Injury Stated complaint: neck pain, ear, trouble swallowing. Time Seen by Provider: 11/05/22 11:55 History of Present Illness HPI narrative: 67-year-old female presented to the emergency department for evaluation of right lateral neck and right shoulder pain. Patient reports the symptoms started yesterday when she woke up. Patient suspected that she slept wrong. Patient states she can turn her head to the left but does have increased muscular neck pain when turning her head to the right. Patient denies any associated numbness or weakness. Patient denies any falls or injuries. Patient states yesterday due to the pain she did have some increased nausea and vomiting. Patient reports he does have some sore throat today when swallowing. Patient was able to swallow her medications but does state it felt uncomfortable. Patient has been handling her secretions and has had no further nausea or vomiting today. Patient did take tramadol for pain control without significant improvement. Related Data Home Medications Medication Instructions Recorded Confirmed aspirin 81 mg tablet,delayed 81 mg PO DAILY 06/20/19 09/07/22 release (Adult Low Dose Aspirin) bupropion HCl 150 mg 24 hr tablet, 150 mg PO QAM 06/20/19 09/07/22 extended release furosemide 20 mg tablet 40 mg PO QAM 06/20/19 09/07/22 hydroxychloroquine 200 mg tablet 200 mg PO BID 06/20/19 09/07/22 methotrexate sodium 2.5 mg tablet 25 mg PO WEEKLY 06/20/19 09/07/22 montelukast 10 mg tablet 10 mg PO DAILY 06/20/19 09/07/22 potassium chloride 10 mEq 10 meq PO BID 06/20/19 09/07/22 tablet,extended release pravastatin 40 mg tablet 40 mg PO DAILY 06/20/19 09/07/22 folic acid 1 mg tablet 2 mg PO DAILY 06/21/19 09/07/22 duloxetine 60 mg capsule,delayed 60 mg PO DAILY 08/20/19 09/07/22 release upadacitinib 15 mg tablet,extended 15 mg PO DAILY 12/24/19 09/07/22 release 24 hr (Rinvoq) calcium carb-ergocalciferol (vit 1 tablet PO BID 03/08/21 09/07/22 D2) 600 mg calcium-200 unit tablet cholecalciferol (vitamin D3) 125 125 mcg PO DAILY 03/08/21 09/07/22 mcg (5,000 unit) tablet (Vitamin D3) cyclobenzaprine 5 mg tablet 5 mg PO HS PRN Pain 03/08/21 09/07/22 docusate sodium 100 mg capsule 200 mg PO BID 03/08/21 09/07/22 (Colace) zoledronic acid 5 mg/100 mL in 5 mg IV ONCE 03/08/21 09/07/22 mannitol 5 %-water intravenous piggybck (Reclast) ropinirole 0.5 mg tablet 0.5 mg PO DAILY 07/14/21 09/07/22 tamsulosin 0.4 mg capsule (Flomax) 0.4 mg PO DAILY 09/07/22 09/07/22 Allergies Allergy/AdvReac Type Severity Reaction Status Date / Time meperidine Allergy Severe HIVES Verified 11/05/22 09:43 Penicillins Allergy Severe RASH Verified 11/05/22 09:43 hydrocodone Allergy Intermediate HIVES Verified 11/05/22 09:43 Review of Systems Review of Systems: All systems reviewed & are unremarkable except as noted in HPI and below PMFSH Past Medical History Medical History Angina of effort Arthritis Asthma CAD (coronary atherosclerotic disease) Depression GERD (gastroesophageal reflux disease) H/O: HTN (hypertension) Hyperlipidemia Kidney stones Moderate persistent asthma without complication Obese Obstructive sleep apnea (adult) (pediatric) OWEN (obstructive sleep apnea) Rhinitis Surgical History Surgical History History of cholecystectomy S/P appy Family History Family History Mother Cerebrovascular accident Family history of diabetes mellitus in first degree relative Father Family history of malignant neoplasm of kidney Family history of liver disease Carcinoma of colon Other Acute myocardial infarction Asthma Diabetes mellitus Family history of arthritis Family history of cardiovascular disease Family history of chronic obstructive pulmonary
[2022-11-05] MEDS: CYCLOBENZAPRINE HCL 10 MG TABLET PO (12:50)
[2022-11-05] MEDS: KETOROLAC 30 MG/ML VIAL (*BKC) IM (12:50)
== END 2022-11-05 14:24 | disposition home or self-care (01) ==
PROVIDERS: Emergency Medicine; Emergency Provider Emergency Medicine; PCP Physician Assistant
DX: M54.2 Cervicalgia (principal); I25.10 Atherosclerotic heart disease of native coronary artery without angina pectoris; I10 Essential (primary) hypertension; E78.5 Hyperlipidemia, unspecified; J45.40 Moderate persistent asthma, uncomplicated; E66.9 Obesity, unspecified; Z68.37 Body mass index [BMI] 37.0-37.9, adult; G47.33 Obstructive sleep apnea (adult) (pediatric); K21.9 Gastro-esophageal reflux disease without esophagitis; M19.90 Unspecified osteoarthritis, unspecified site; F32.A Depression, unspecified; Z87.442 Personal history of urinary calculi; Z79.82 Long term (current) use of aspirin; Z90.49 Acquired absence of other specified parts of digestive tract
CPT/HCPCS: 36415; 81003; 96372; 99283; A9270; J1885

== ENCOUNTER 2022-11-28 19:46 | Emergency (ER) | payer OTHER, SELFPAY ==
[2022-11-28] VITALS (18 sets, daily range): BP systolic 117–137; BP diastolic 52–83; PULSE 86–110; RESP 11–34; TEMP 36.6; O2SAT 96–100
--- NOTE | ~2022-11-28 | CT_ITS ---
EXAMINATION: CTA chest PE protocol DATE: 11/28/2022 23:54 INDICATION: Shortness of breath. TECHNIQUE: Computed tomography angiography (CTA) of the chest was performed with 100 mL Omnipaque-350 intravenous contrast timed to evaluate the pulmonary arteries. Coronal maximum intensity projection 3D-reconstructions were created by the technologist. Automated exposure control and iterative reconst ruction technique were employed. The dose-length product was 724.92 mGy-cm. COMPARISON: Chest CT 10/31/2022, CT abdomen and pelvis 01/08/2019 FINDINGS: The lungs demonstrate mild atelectasis. Calcified right lung nodules and calcified right hi lar and mediastinal lymph nodes are consistent with old granulomatous disease. No pleural effusion. T he heart size is normal. No pericardial effusion. There is no pulmonary embolus. There is a small sli ding hiatal hernia. Calcifications in the spleen and liver are consistent with old granulomatous dise ase. There is a chronic 5.0 cm mass in the liver that demonstrated interrupted peripheral puddling of contrast on the CT from 01/08/2017, consistent with a hemangioma. There are changes of cholecystectomy . There is moderate thoracic spondylosis. There is a hemangioma in T8 vertebral body. IMPRESSION: 1. No pulmonary embolus. 2. Small sliding hiatal hernia. Reviewed, dictated and finalized at location A.
--- NOTE | ~2022-11-28 | XR_ITS ---
EXAMINATION: XR chest 2V DATE: 11/28/2022 20:12 INDICATION: Shortness of breath TECHNIQUE: frontal and lateral views of the chest were obtained. COMPARISON: Chest radiograph and CT dated 10/31/2022 FINDINGS: Unchanged mild linear discoid atelectasis/scarring in the right middle lobe. No new airspace opacitie s, pulmonary edema, pleural effusion or pneumothorax. Heart size is normal. Old healed fracture defor mity at the left humeral neck. Mild to moderate thoracic spondylosis with chronic mild anterior wedgi ng of a couple lower thoracic vertebral bodies. Cholecystectomy clips noted large heterotopic ossicle projecting over the upper abdomen on the lateral projection. IMPRESSION: 1. Unchanged mild linear discoid atelectasis/scarring at the right middle lobe. Reviewed, dictated and finalized at location A.
--- NOTE | 2022-11-28 19:59 | ECG_ITS ---
Measurements Intervals [place] Rate: 91 P: 23 OR: 154 QRS: 14 QRSD: 89 T: 50 QT: 376 QTc: 464 Interpretive Statements SINUS RHYTHM RSR' IN V1 OR V2, PROBABLY NORMAL VARIANT LOW QRS VOLTAGE IN PRECORDIAL LEADS BORDERLINE ECG COMPARED TO ECG 10/31/2022 17:18:45 NO SIGNIFICANT CHANGES Electronically Signed On 11-29-2022 7:57:14 CDT by Faisal Gonzalez D.O.
--- NOTE | 2022-11-28 20:16 | ED.SOB ---
HPI - SOB/Dyspnea General Chief Complaint: Shortness of Breath/Dyspnea Stated Complaint: lower extremity edema Time Seen by Provider: 11/28/22 19:54 History of Present Illness HPI Narrative: Patient is a 67-year-old female here for evaluation of bilateral lower extremity swelling, redness and pain x3 weeks. Patient states her symptoms have progressed in nature since onset. She has been seen by both her primary care doctor and her irrigator head who have placed her on diuretics and encouraged compression stockings. Patient states that she has been doing both these measures but the swelling has not improved. Reports some progressive dyspnea over the past month that is worse on exertion. Also reports a cough productive of purulent sputum. No chest pain. Per chart review patient was seen in the beginning of the month for identical symptoms. She had bilateral duplex that were negative. States symptoms improved on antibiotics for cellulitis. Related Data Home Medications Medication Instructions Recorded Confirmed aspirin 81 mg tablet,delayed 81 mg PO DAILY 06/20/19 09/07/22 release (Adult Low Dose Aspirin) bupropion HCl 150 mg 24 hr tablet, 150 mg PO QAM 06/20/19 09/07/22 extended release furosemide 20 mg tablet 40 mg PO QAM 06/20/19 09/07/22 hydroxychloroquine 200 mg tablet 200 mg PO BID 06/20/19 09/07/22 methotrexate sodium 2.5 mg tablet 25 mg PO WEEKLY 06/20/19 09/07/22 montelukast 10 mg tablet 10 mg PO DAILY 06/20/19 09/07/22 potassium chloride 10 mEq 10 meq PO BID 06/20/19 09/07/22 tablet,extended release pravastatin 40 mg tablet 40 mg PO DAILY 06/20/19 09/07/22 folic acid 1 mg tablet 2 mg PO DAILY 06/21/19 09/07/22 duloxetine 60 mg capsule,delayed 60 mg PO DAILY 08/20/19 09/07/22 release upadacitinib 15 mg tablet,extended 15 mg PO DAILY 12/24/19 09/07/22 release 24 hr (Rinvoq) calcium carb-ergocalciferol (vit 1 tablet PO BID 03/08/21 09/07/22 D2) 600 mg calcium-200 unit tablet cholecalciferol (vitamin D3) 125 125 mcg PO DAILY 03/08/21 09/07/22 mcg (5,000 unit) tablet (Vitamin D3) cyclobenzaprine 5 mg tablet 5 mg PO HS PRN Pain 03/08/21 09/07/22 docusate sodium 100 mg capsule 200 mg PO BID 03/08/21 09/07/22 (Colace) zoledronic acid 5 mg/100 mL in 5 mg IV ONCE 03/08/21 09/07/22 mannitol 5 %-water intravenous piggybck (Reclast) ropinirole 0.5 mg tablet 0.5 mg PO DAILY 07/14/21 09/07/22 tamsulosin 0.4 mg capsule (Flomax) 0.4 mg PO DAILY 09/07/22 09/07/22 Allergies Allergy/AdvReac Type Severity Reaction Status Date / Time meperidine Allergy Severe HIVES Verified 11/05/22 09:43 Penicillins Allergy Severe RASH Verified 11/05/22 09:43 hydrocodone Allergy Intermediate HIVES Verified 11/05/22 09:43 Review of Systems Review of Systems: Gen.: Denies fevers or chills Eyes: Denies eye pain or visual change ENT: Denies congestion Respiratory: Reports shortness of breath and cough CV: Denies chest pain or palpitations GI: Denies abdominal pain nausea, emesis or diarrhea : denies burning, urgency, frequency or hematuria Musculoskeletal: Reports leg swelling Neuro: Denies numbness, tingling, weakness or focal weakness Skin: Denies rash Except as documented, all other systems reviewed and negative [facility] Past Medical History Medical History Angina of effort Arthritis Asthma CAD (coronary atherosclerotic disease) Depression GERD (gastroesophageal reflux disease) H/O: HTN (hypertension) Hyperlipidemia Kidney stones Moderate persistent asthma without complication Obese Obstructive sleep apnea (adult) (pediatric) OWEN (obstructive sleep apnea) Rhinitis Surgical History Surgical History History of cholecystectomy S/P appy Family History Family History Mother Cerebrovascular accident Family history of diabetes mellitu
[2022-11-28 21:23] LABS: Basophils Percent Auto 0.4 % (0.2-1.2); Eosinophils Absolute Auto 0.2 K/mm3 (0-0.3); Eosinophils Percent Auto 2.4 % (0-4.4); Hematocrit 40.5 % (37.0-47.0); Hemoglobin 13.3 g/dL (12.0-15.0); Immature Granulocyte Absolute 0.02 K/mm3 (0.00-0.031); Immature Granulocyte Percent A 0.3 % (0-0.5); Immature Platelet Fraction Pct 5.1 % (0.9-11.2); Lymphocytes Absolute Auto 0.62 K/mm3 (0.9-3.2); Lymphocytes Percent Auto 8.2 % (18.3-44.2); Mean Corpuscular HGB Conc 32.8 g/dl (32-36); Mean Corpuscular Hemoglobin 33.8 pg (26-34); Mean Corpuscular Volume 102.8 fl (80-100); Mean Platelet Volume 10.3 fl (7.4-10.4); Monocytes Absolute Auto 0.7 K/mm3 (0.1-0.6); Monocytes Percent Auto 8.9 % (2.6-8.5); Neutrophils Percent Auto 79.8 % (45.5-73.1); Platelet Count Result 235 k/mm3 (150-375); Red Blood Count 3.94 M/mm3 (4.2-5.4); White Blood Count 7.5 K/mm3 (4.5-10.0)
[2022-11-28 21:35] LABS: Alanine Aminotransferase 25 U/L (6-35); Albumin Level 4.1 g/dL (3.5-5.1); Alkaline Phosphatase 123 U/L (38-126); Anion Gap 10 mmol/L (8-16); Aspartate Amino Transferase 34 U/L (14-36); Bilirubin,Total 0.6 mg/dL (0.2-1.3); Blood Urea Nitrogen 18 mg/dL (7-17); Calcium 8.5 mg/dL (8.4-10.2); Carbon Dioxide 25 mmol/L (22-30); Chloride 103 mmol/L (98-107); Estimated CRCL calculation 68 ml/min; Estimated Glomerular Filt Rate > 60; Glucose 100 mg/dL (65-110); Magnesium 2.2 mg/dL (1.6-2.3); Potassium 3.1 mmol/L (3.4-5.0); Sodium 138 mmol/L (137-145)
[2022-11-28 21:43] LABS: NT Pro B Type Natriuretic Pept 219 pg/mL (19.9-100)
[2022-11-28 21:48] LABS: D Dimer 1.41 ug/mL (<0.48)
[2022-11-28 23:21] LABS: Influenza A QL RT-PCR Negative (Negative); Influenza B QL RT-PCR Negative (Negative); SARS-CoV-2 RNA PCR Negative (Negative)
[2022-11-28 23:54] LABS: INR 1.1; Partial Thromboplastin Time 27.7 SECONDS (22.3-36.8); Prothrombin Time 14.1 Seconds (11.1-14.7)
[2022-11-29 01:33] VITALS: PULSE 67
[2022-11-29] MEDS: ENOXAPARIN 100 MG/ML SYRINGE SUB-Q (01:47)
[2022-11-29 01:49] VITALS: PULSE 90; RESP 16; O2SAT 96
[2022-11-29 02:02] VITALS: PULSE 88; RESP 12; O2SAT 96
[2022-11-29 02:17] VITALS: PULSE 88; RESP 20; O2SAT 96
== END 2022-11-29 02:29 | disposition home or self-care (01) ==
PROVIDERS: Emergency Provider Physician Assistant; PCP Physician Assistant
DX: R60.0 Localized edema (principal); R06.00 Dyspnea, unspecified; Z20.822 Contact with and (suspected) exposure to COVID-19; I25.10 Atherosclerotic heart disease of native coronary artery without angina pectoris; I10 Essential (primary) hypertension; E78.5 Hyperlipidemia, unspecified; J45.40 Moderate persistent asthma, uncomplicated; G47.33 Obstructive sleep apnea (adult) (pediatric); M19.90 Unspecified osteoarthritis, unspecified site; E66.9 Obesity, unspecified; Z68.37 Body mass index [BMI] 37.0-37.9, adult; Z87.442 Personal history of urinary calculi; Z79.82 Long term (current) use of aspirin; Z90.49 Acquired absence of other specified parts of digestive tract; R94.31 Abnormal electrocardiogram [ECG] [EKG]; K44.9 Diaphragmatic hernia without obstruction or gangrene
CPT/HCPCS: 36415; 71046; 71275; 80053; 83735; 83880; 85025; 85055; 85380; 85610; 85730; 87636; 93005; 96372; 99284; J1650; Q9967

== ENCOUNTER 2022-11-30 10:56 | Outpatient (CLI) | payer OTHER, SELFPAY ==
--- NOTE | ~2022-11-30 | US_ITS ---
EXAMINATION: US venous doppler [facility] DATE: 11/30/2022 11:48 INDICATION: Shortness of breath. Lower limb pain and swelling. TECHNIQUE: Grayscale ultrasound images without and with compression and Doppler ultrasound images of the bilateral lower extremity veins were obtained. COMPARISON: None. FINDINGS: The visualized portions of right common femoral vein, profunda (deep) femoral vein, femoral vein, pop liteal vein, posterior tibial veins, peroneal veins, gastrocnemius vein and greater saphenous vein ou tflow are patent. The visualized portions of left common femoral vein, profunda femoral vein, femoral vein, popliteal v ein, posterior tibial veins, peroneal veins, gastrocnemius vein and greater saphenous vein outflow ar e patent. IMPRESSION: 1. No deep venous thrombosis in either lower limb. Reviewed, dictated and finalized at location A.
== END 2022-11-30 10:57 | disposition home or self-care (01) ==
PROVIDERS: PCP Physician Assistant; Visit Provider Physician Assistant
DX: R06.02 Shortness of breath (principal); R06.09 Other forms of dyspnea
CPT/HCPCS: 93970

== ENCOUNTER 2022-12-13 08:56 | Outpatient (CLI) | payer OTHER, SELFPAY ==
--- NOTE | ~2022-12-13 | US_ITS ---
EXAMINATION: US_VDOPREFBI_US DATE: 12/13/2022 09:45 INDICATION: Lower limb pain. Varicose veins in bilateral legs. TECHNIQUE: Grayscale ultrasound images without and with compression and Doppler ultrasound images of the bilateral lower extremity veins were obtained. COMPARISON: Ultrasound 11/30/2022 FINDINGS: The visualized portions of right common femoral vein, profunda (deep) femoral vein, femoral vein, pop liteal vein, peroneal veins, posterior tibial veins, and greater saphenous vein outflow are patent. R ight greater saphenous vein measures 4 mm in the upper thigh, 4 mm in the lower thigh, and 2 mm in th e calf. There is reflux for 5.0 seconds in greater saphenous vein in the calf. Right small saphenous vein measures 4 mm in the upper calf and 3 mm in the lower calf. No reflux. The visualized portions of left common femoral vein, profunda femoral vein, femoral vein, popliteal v ein, peroneal veins, posterior tibial veins, and greater saphenous vein outflow are patent. Left grea ter saphenous vein measures 5 mm in the upper thigh, 3 mm in the lower thigh, and 3 mm in the calf. N o reflux. Left small saphenous vein measures 3 mm in the upper calf and 4 mm in the lower calf. No re flux. IMPRESSION: 1. No deep venous thrombosis. 2. Reflux in right greater saphenous vein in the calf measuring 5.0 seconds. Reviewed, dictated and finalized at location A.
== END 2022-12-13 08:57 | disposition home or self-care (01) ==
PROVIDERS: PCP Physician Assistant; Visit Provider Nurse Practitioner Adult Health
DX: I83.813 Varicose veins of bilateral lower extremities with pain (principal); I87.2 Venous insufficiency (chronic) (peripheral)
CPT/HCPCS: 93970

== ENCOUNTER → 2023-03-14 09:38 | Outpatient (CLI) | payer OTHER, SELFPAY ==
--- NOTE | ~2023-03-14 | XR_ITS ---
Left ankle Technique: AP, oblique, and lateral views were obtained. Clinical History: Pain Findings: No acute fracture or dislocation is seen. Osseous alignment is anatomic. Ankle mortise and other visualized joint spaces are preserved. Diffuse soft tissue swelling noted. Impression: No osseous or articular abnormality. Diffuse soft tissue swelling. Reviewed, dictated and finalized at [facility]. Impression: No osseous or articular abnormality. Diffuse soft tissue swelling.
== END ==
PROVIDERS: PCP Nurse Practitioner Family; Visit Provider Nurse Practitioner Family
DX: M25.472 Effusion, left ankle (principal)
CPT/HCPCS: 73610

== ENCOUNTER 2023-04-12 09:55 | Outpatient (CLI) | payer OTHER, SELFPAY ==
--- NOTE | ~2023-04-12 | DEXA_ITS ---
Bone Density Report Name: JUAN DANIEL LOCK Age: 67 Sex: Female Ethnicity: White Date of : 1955 Indication: osteopenia; monitoring treatment; parental hip fracture; height loss; prior fracture; hysterectomy; rheumatoid arthritis; postmenopausal Referring Provider: CORRINE, SHARON Maldonado Study: Bone densitometry was performed. Exam Date: April 12, 2023 Accession number: [id number] Bone Density: Region BMD T-score Z-score Classification AP Spine(L1-L4) 0.809 -2.2 -0.2 Osteopenia Femoral Neck (Left) 0.585 -2.4 -0.7 Osteopenia Total Hip (Left) 0.809 -1.1 0.3 Osteopenia Femoral Neck (Right) 0.521 -3.0 -1.3 Osteoporosis Total Hip (Right) 0.736 -1.7 -0.3 Osteopenia Total Hip Mean 0.772 -1.4 0.0 Osteopenia World Health Organization criteria for BMD impression classify patients as: Normal (T-score at or above -1.0), Osteopenia (T-score between -1.0 and -2.5), or Osteoporosis (T-score at or below -2.5). 10-year Fracture Risk: FRAX not reported because: Some T-score for Spine Total or Hip Total or Femoral Neck at or below -2.5 Treated for osteoporosis Previous Exams: Region Exam Age BMD T-score BMD Change BMD Change Date g/cm2 vs Baseline vs Previous AP Spine (L1-L4) 04/12/2023 67 0.809 -2.2 -0.039 (-4.6%) -0.037 (-4.4%) 01/27/2021 65 0.847 -1.8 -0.002 (-0.2%) 0.123 (17.0%)# 01/31/2019 63 0.724 -2.9 -0.125 (-14.7% -0.125 (-14.7% 01/27/2017 61 0.849 -1.8 Total Hip(Left) 04/12/2023 67 0.809 -1.1 0.001 (0.2%) 0.019 (2.4%) 01/27/2021 65 0.790 -1.2 -0.018 (-2.2%) 0.004 (0.5%) 01/31/2019 63 0.786 -1.3 -0.021 (-2.7%) -0.021 (-2.7%) 01/27/2017 61 0.807 -1.1 Total Hip(Right) 04/12/2023 67 0.736 -1.7 -0.067 (-8.4%) -0.089 (-10.8% 01/27/2021 65 0.825 -1.0 0.022 (2.7%) 0.094 (12.9%)* 01/31/2019 63 0.730 -1.7 -0.073 (-9.1%) -0.073 (-9.1%) 01/27/2017 61 0.803 -1.1 *Denotes significance at 95% confidence level, LSC for AP Spine = 0.022 g/cm2, LSC for Total Hip = 0.027 g/cm2 # Denotes dissimilar scan types or analysis methods Clinical Information Provided by Patient: Has had a low trauma fracture Parent has had a hip fracture Has rheumatoid arthritis Is being treated for osteoporosis Has used the following medications: Reclast (i.e. zoledronate), Vitamin D, Calcium Has the following medical conditions: Hysterectomy Patient maximum height was 64 Menopause Age: 35 No regular weight bearing exercise Onset of menses at age 13
== END 2023-04-12 09:56 | disposition home or self-care (01) ==
PROVIDERS: PCP Physician Assistant; Visit Provider Physician Assistant
DX: M85.88 Other specified disorders of bone density and structure, other site (principal); M85.852 Other specified disorders of bone density and structure, left thigh; M85.851 Other specified disorders of bone density and structure, right thigh; M81.0 Age-related osteoporosis without current pathological fracture; Z79.620 Long term (current) use of immunosuppressive biologic
CPT/HCPCS: 77080

== ENCOUNTER 2023-07-21 14:36 | Observation (INO) | payer OTHER, SELFPAY ==
[2023-07-21] VITALS (11 sets, daily range): BP systolic 101–123; BP diastolic 50–75; PULSE 95–114; RESP 12–18; TEMP 36.6–37.2; O2SAT 94–100; BMI 37.0
--- NOTE | ~2023-07-21 | CT_ITS ---
EXAMINATION: CTA chest PE protocol DATE: 07/21/2023 19:48 INDICATION: Left-sided chest pain TECHNIQUE: Computed tomography angiography (CTA) of the chest was performed with 100 mL Omnipaque-350 intravenous contrast timed to evaluate the pulmonary arteries. Coronal maximum intensity projection 3D-reconstructions were created by the technologist. The dose-length product (DLP) was 589.94 mGy-cm. Automated exposure control and iterative reconstruction technique were employed. COMPARISON: 11/28/2022 FINDINGS: The pulmonary arteries are moderately well-opacified. No pulmonary embolus is identified. T here is mild atelectasis. No pleural effusion or pneumothorax. No pathologically enlarged thoracic ly mph nodes are identified. The heart size is normal. Again noted is a 5 cm mass of the liver which has been previously characterized as a hemangioma. Punctate calcifications in an otherwise normal spleen likely represent healed granulomatous disease. Changes of cholecystectomy are noted. There is modera te thoracic spondylosis. IMPRESSION: 1. No pulmonary embolism or acute cardiopulmonary abnormality. Reviewed, dictated and finalized at location F. PER BIRD
--- NOTE | ~2023-07-21 | NM_ITS ---
EXAMINATION: NM amilcar stress w perfusion DATE: 07/22/2023 13:30 INDICATION: Chest pain TECHNIQUE: Rest images were obtained following intravenous administration of 9.9 mCi Tc99m tetrofosmi n (Myoview). The patient was infused intravenously with Lexiscan (Regadenoson). Then, 32.3 mCi Tc99m tetrofosmin (Myoview) was administered intravenously, and stress images were obtained. Data was recon structed into short axis and horizontal and vertical long axis SPECT images. Gated SPECT images were also obtained. COMPARISON: None. FINDINGS: There is a small mild reversible perfusion defect consistent with ischemia at the mid infer ior wall. Of note there is prominent hepatic activity projecting alongside the inferior wall on the r est images which could mask a corresponding mild defect on the rest images and could not exclude that the defect on the stress images is related to either infarct or diaphragmatic attenuation artifact. Prone imaging was unable to be obtained. No other perfusion defects identified. There is normal left ventricular chamber size, wall motion and ejection fraction. Left ventricular ejection fraction maritza ures >70%. IMPRESSION: 1. Small focus of mild decreased perfusion at the mid inferior segment which appears reversible consi stent with ischemia however a similar defect could be masked on the rest images by prominent adjacent hepatic activity and could not excluded this represents either infarct or diaphragmatic attenuation artifact. 2. Left ventricular ejection fraction measuring >70%. Reviewed, dictated and finalized at location A. NGS ANALYST IMPRESSION: 1. Small focus of mild decreased perfusion at the mid inferior segment which ap pears reversible consistent with ischemia however a similar defect could be mas ked on the rest images by prominent adjacent hepatic activity and could not exc luded this represents either infarct or diaphragmatic attenuation artifact. 2. Left ventricular ejection fraction measuring >70%.
--- NOTE | ~2023-07-21 | XR_ITS ---
XR chest 2V DATE: 07/21/2023 15:08 INDICATION: Chest pain radiating to left arm. Shortness of breath. TECHNIQUE: AP and lateral views COMPARISON: 11/20/2022 CTA chest 11/28/2022 2 view chest FINDINGS: Normal heart size. No hilar or mediastinal enlargement. No pulmonary infiltrate or consolid ation, pleural effusion or pulmonary vascular congestion or pneumothorax. Diffuse osteopenia. Thoracic dextroscoliosis and degenerative spurring. Old healed fracture deformity of the proximal left humerus. Surgical clips overlie the upper abdomen, likely due to cholecystectomy. IMPRESSION: No active cardiopulmonary disease Reviewed, dictated and finalized at location L. IT COLLECTION SPECIALIST
--- NOTE | 2023-07-21 14:37 | ECG_ITS ---
Measurements Intervals [place] Rate: 97 P: 33 NV: 158 QRS: 51 QRSD: 77 T: 23 QT: 342 QTc: 435 Interpretive Statements SINUS RHYTHM WITH SINUS ARRHYTHMIA RSR' IN V1 OR V2, PROBABLY NORMAL VARIANT DELAYED PRECORDIAL R/S TRANSITION LOW QRS VOLTAGE IN PRECORDIAL LEADS BASELINE ARTIFACT- I, II, AVR, AVL BORDERLINE ECG COMPARED TO ECG 11/28/2022 20:16:49 SINUS ARRHYTHMIA NOW PRESENT Electronically Signed On 07-21-2023 14:49:10 SHORT PIECE HANDLER by Faisal Gonzalez D.O.
--- NOTE | 2023-07-21 15:04 | PC.NURSE ---
xiomara Steele, attempted to stick patient 3x without success.
[2023-07-21 15:34] LABS: Basophils Percent Auto 0.6 % (0.2-1.2); Eosinophils Absolute Auto 0.1 K/mm3 (0-0.3); Eosinophils Percent Auto 1.9 % (0-4.4); Immature Granulocyte Absolute 0.01 K/mm3 (0.00-0.031); Immature Granulocyte Percent A 0.3 % (0-0.5); Lymphocytes Absolute Auto 0.78 K/mm3 (0.9-3.2); Lymphocytes Percent Auto 21.6 % (18.3-44.2); Mean Corpuscular HGB Conc 31.8 g/dl (32-36); Mean Corpuscular Hemoglobin 31.5 pg (26-34); Mean Corpuscular Volume 99.1 fl (80-100); Mean Platelet Volume 9.6 fl (7.4-10.4); Monocytes Absolute Auto 0.4 K/mm3 (0.1-0.6); Monocytes Percent Auto 11.9 % (2.6-8.5); Neutrophils Absolute Auto 2.3 K/mm3 (1.3-6.7); Neutrophils Percent Auto 63.7 % (45.5-73.1); Platelet Count Result 194 k/mm3 (150-375); Red Blood Count 4.44 M/mm3 (4.2-5.4); Red Cell Distribution Width 14.7 % (11.5-14.5); White Blood Count 3.6 K/mm3 (4.5-10.0)
[2023-07-21 15:43] LABS: Alanine Aminotransferase 21 U/L (6-35); Albumin Level 4.1 g/dL (3.5-5.1); Alkaline Phosphatase 160 U/L (38-126); Anion Gap 8 mmol/L (8-16); Aspartate Amino Transferase 38 U/L (14-36); Bilirubin,Total 0.7 mg/dL (0.2-1.3); Blood Urea Nitrogen 22 mg/dL (7-17); Calcium 9.1 mg/dL (8.4-10.2); Carbon Dioxide 26 mmol/L (22-30); Chloride 106 mmol/L (98-107); Estimated CRCL calculation 50 ml/min; Estimated Glomerular Filt Rate 55; Glucose 98 mg/dL (65-110); Lipase 90 U/L (23-300); Potassium 3.8 mmol/L (3.4-5.0); Sodium 140 mmol/L (137-145)
[2023-07-21 15:53] LABS: Partial Thromboplastin Time 27.3 SECONDS (22.3-36.8); Prothrombin Time 13.6 Seconds (11.1-14.7)
[2023-07-21 15:55] LABS: Troponin I < 0.012 ng/mL (0.000-0.034)
--- NOTE | 2023-07-21 17:50 | ECG_ITS ---
Measurements Intervals [place] Rate: 93 P: 4 AK: 156 QRS: 8 QRSD: 82 T: 10 QT: 360 QTc: 450 Interpretive Statements SINUS RHYTHM DELAYED PRECORDIAL R/S TRANSITION LOW QRS VOLTAGE IN PRECORDIAL LEADS BORDERLINE T WAVE ABNORMALITY- INFERIOR LEADS BASELINE ARTIFACT- I, II, III, V2 BORDERLINE ECG COMPARED TO ECG 07/21/2023 14:43:07 NO SIGNIFICANT CHANGES Electronically Signed On 07-21-2023 18:53:40 TITLE COORDINATOR by Faisal Gonzalez D.O.
[2023-07-21 18:41] LABS: Troponin I < 0.012 ng/mL (0.000-0.034)
--- NOTE | 2023-07-21 18:52 | ED.CHESTPAIN ---
HPI - Chest Pain General Chief Complaint: Chest Pain <Viola Milan PA-C - Last Filed: 07/22/23 04:33> Stated Complaint: chest pain <Viola Milan PA-C - Last Filed: 07/22/23 04:33> Time Seen by Provider: 07/21/23 17:52 <Viola Milan PA-C - Last Filed: 07/22/23 04:33> History of Present Illness HPI narrative: 68 y/o F with a hx of HTN, GERD, OWEN reports for evaluation for left-sided chest pain that radiates down her left arm and into her back if 10:30 this morning. Patient states the pain started while she was sitting in her chair. She went to urgent care and was advised to come to the ED, arrived here via EMS. The patient reports associated dyspnea, palpitations and lightheadedness. She states the chest pain and dyspnea is worse with exertion. She reports associated nausea, no emesis, no loss of consciousness. The patient is reporting a productive cough but denies fever. She denies new onset lower extremity edema or calf pain. Denies hemoptysis, abdominal pain. She received nitro EN route with improvement in her chest pain. Upon my evaluation, she stated she still has persistent chest pain. Reports that her mother and father both had history of coronary artery disease. Her forestry foreman is Dr. Poon. <Viola Milan PA-C - Last Filed: 07/22/23 04:33> Related Data Home Medications: Home Medications Medication Instructions Recorded Confirmed aspirin 81 mg tablet,delayed 81 mg PO DAILY 06/20/19 07/21/23 release (Adult Low Dose Aspirin) bupropion HCl 150 mg 24 hr tablet, 150 mg PO QAM 06/20/19 07/21/23 extended release hydroxychloroquine 200 mg tablet 200 mg PO BID 06/20/19 07/22/23 montelukast 10 mg tablet 10 mg PO QAM AND QHS 06/20/19 07/22/23 potassium chloride 10 mEq 10 meq PO DAILY 06/20/19 07/22/23 tablet,extended release pravastatin 40 mg tablet 40 mg PO DAILY 06/20/19 07/22/23 folic acid 1 mg tablet 2 mg PO DAILY 06/21/19 07/21/23 duloxetine 60 mg capsule,delayed 60 mg PO DAILY 08/20/19 07/21/23 release calcium carb-ergocalciferol (vit 1 tablet PO BID 03/08/21 07/21/23 D2) 600 mg calcium-200 unit tablet cholecalciferol (vitamin D3) 125 125 mcg PO DAILY 03/08/21 07/21/23 mcg (5,000 unit) tablet (Vitamin D3) cyclobenzaprine 5 mg tablet 5 mg PO TID PRN Muscle spasms 03/08/21 07/21/23 docusate sodium 100 mg capsule 200 mg PO BID 03/08/21 07/21/23 (Colace) ropinirole 0.5 mg tablet 1 mg PO HS 07/14/21 07/22/23 abatacept 125 mg/mL subcutaneous 125 mg subcut WEEKLY 07/22/23 07/22/23 syringe (Orencia) bumetanide 1 mg tablet 1 mg PO BID 07/22/23 07/22/23 cetirizine 10 mg tablet 10 mg PO DAILY 07/22/23 07/22/23 clobetasol 0.05 % lotion (Clobex) 1 applic topical BID PRN Itching 07/22/23 07/22/23 cyclobenzaprine 10 mg tablet 10 mg PO HS PRN muscle spasm 07/22/23 07/21/23 esomeprazole magnesium 40 mg 40 mg PO DAILY 07/22/23 07/21/23 capsule,delayed release gabapentin 100 mg capsule 200 mg PO BID 07/22/23 07/22/23 hydrocodone 7.5 mg-acetaminophen 1 tablet PO Q6H PRN Pain (Scale 07/22/23 07/22/23 325 mg tablet Score 4-6) linaclotide 290 mcg capsule 290 mcg PO DAILY 07/22/23 07/22/23 (Linzess) meloxicam 15 mg tablet 7.5 mg PO DAILY 07/22/23 07/22/23 teriparatide 20 mcg/dose (600 20 mcg subcut DAILY 07/22/23 07/22/23 mcg/2.4 mL) subcutaneous pen injector (Forteo) tramadol 50 mg tablet 50 mg feeding tube Q6H PRN Pain 07/22/23 07/22/23 <Viola Milan PA-C - Last Filed: 07/22/23 04:33> Allergies/Adverse Reactions: Allergies Allergy/AdvReac Type Severity Reaction Status Date / Time meperidine Allergy Severe HIVES Verified 07/21/23 17:49 Penicillins Allergy Severe RASH Verified 07/21/23 17:49 hydrocodone Allergy Intermediate HIVES Verified 07/21/23 17:49 <Viola Milan PA-C - Last Filed: 07/22/23 04:33> Review of Systems Review of Systems: CONSTITUTIONAL: Denies fever, chills, or sweats. EYES: Denies visual changes, redness, or di
[2023-07-21] MEDS: SODIUM CHLORIDE 0.9% IV 1,000 ML 999 ML IV CONT ×2 (19:31→21:15)
[2023-07-21] MEDS: ONDANSETRON INJ 4 MG/2 ML VIAL IV PUSH (19:32)
[2023-07-21 19:57] LABS: NT Pro B Type Natriuretic Pept 54 pg/mL (19.9-100)
[2023-07-21 19:58] LABS: D Dimer 1.13 ug/mL (<0.48)
[2023-07-21] MEDS: NITROGLYCERIN SL 0.4 MG TABLET SUBLINGUAL (20:45)
--- NOTE | 2023-07-21 21:51 | PM.IMHP ---
H&P: HPI History of Present Illness Date/Time: 07/21/23 21:51 Chief Complaint: chest pain. Narrative: This is a 68-year-old female with past medical history significant for coronary artery disease, are a, GERD, obstructive sleep apnea, asthma. Patient presented to the emergency room due to chest pain localized to the retrosternal area, patient denies any prior or chest pain, it happened while at rest patient had some nausea and dizziness with it was released with pain medication. Patient denies any fevers, rigors, chills. Has been her usual state of health. Preliminary workup has been essentially nonrevealing. Patient has been placed in observation for further evaluation management and treatment. XR chest 2V DATE: 07/21/2023 15:08 INDICATION: Chest pain radiating to left arm. Shortness of breath.? TECHNIQUE: AP and lateral views? COMPARISON: 11/20/2022 CTA chest 11/28/2022 2 view chest? FINDINGS: Normal heart size. No hilar or mediastinal enlargement. No pulmonary infiltrate or consolidation, pleural effusion or pulmonary vascular congestion or pneumothorax. Diffuse osteopenia. Thoracic dextroscoliosis and degenerative spurring. Old healed fracture deformity of the proximal left humerus. Surgical clips overlie the upper abdomen, likely due to cholecystectomy.? IMPRESSION: No active cardiopulmonary disease? EXAMINATION: CTA chest PE protocol DATE: 07/21/2023 19:48 INDICATION: Left-sided chest pain TECHNIQUE: Computed tomography angiography (CTA) of the chest was performed with 100 mL Omnipaque-350 intravenous contrast timed to evaluate the pulmonary arteries. Coronal maximum intensity projection 3D-reconstructions were created by the technologist. The dose-length product (DLP) was 589.94 mGy-cm. Automated exposure control and iterative reconstruction technique were employed. COMPARISON: 11/28/2022 FINDINGS: The pulmonary arteries are moderately well-opacified. No pulmonary embolus is identified. There is mild atelectasis. No pleural effusion or pneumothorax. No pathologically enlarged thoracic lymph nodes are identified. The heart size is normal. Again noted is a 5 cm mass of the liver which has been previously characterized as a hemangioma. Punctate calcifications in an otherwise normal spleen likely represent healed granulomatous disease. Changes of cholecystectomy are noted. There is moderate thoracic spondylosis. IMPRESSION: 1. No pulmonary embolism or acute cardiopulmonary abnormality. Review of Systems Review of Systems: Chest pain, nausea, vomiting Constitutional: Constitutional: Denies chills, Denies fatigue, Denies fever(s), Denies malaise, Denies night sweats and Denies weakness Eyes: Eyes: Denies change in vision ENT: Denies dysphagia and Denies odynophagia Cardiovascular: Cardiovascular: Reports chest pain, Denies leg edema, Denies radiating jaw, neck or arm pain and Denies palpitations Respiratory: Respiratory: Denies cough, Denies excessive phlegm production and Denies dyspnea Gastrointestinal: Gastrointestinal: Denies abdominal pain, Denies dyspepsia, Denies heartburn, Reports nausea and Reports vomiting Genitourinary: Genitourinary: Denies dysuria Musculoskeletal: Musculoskeletal: Denies arthralgias Integumentary/Breasts: Skin/Breast: Denies rash Neurologic: Denies focal weakness and Denies Sensory deficit (Neuro) Psychiatric: Psychiatric: Reports no additional psychiatric complaints and Reports as per HPI Endocrine: Endocrine: Denies cold intolerance, Denies fatigue, Denies flushing, Denies heat intolerance, Denies polyphagia, Denies polydipsia and Denies palpitations Hematologic/Lymphatic: Hematologic/Lymphatic: Reports no additional hematologic/lymphatic complaints and Reports as per HPI Allergic/Immunologic: Allergic/Immunologic: Reports no additional allergic/immunologic complaints and Reports as per HPI PMFSH Past Medical History Medical History (Reviewed 07/21/23 @ 18
--- NOTE | 2023-07-21 22:01 | ECG_ITS ---
Measurements Intervals [place] Rate: 95 P: 32 MN: 179 QRS: 5 QRSD: 78 T: 22 QT: 366 QTc: 460 Interpretive Statements SINUS RHYTHM RSR' IN V1 OR V2, PROBABLY NORMAL VARIANT DELAYED PRECORDIAL R/S TRANSITION LOW QRS VOLTAGE IN PRECORDIAL LEADS BASELINE ARTIFACT- I, II, III, AVR, AVF BORDERLINE ECG COMPARED TO ECG 07/21/2023 18:02:26 NO SIGNIFICANT CHANGES Electronically Signed On 07-22-2023 6:29:03 LEAD WEB APPLICATION DEVELOPER by Faisal Gonzalez D.O.
[2023-07-21 22:06] LABS: Appearance Urine Clear (Clear); Bilirubin Urine Negative (Negative); Blood Urine Negative (Negative); Color Urine Yellow (Yellow); Glucose Urine UA Negative (Negative); Ketones Urine Negative (Negative); Leukocyte Esterase Ur Negative LEU/UL (Negative); Nitrate Urine Negative (Negative); Protein Urine Negative (Negative); Specific Grav Ur 1.024 (1.001-1.035); Urobilinogen Urine 0.2 mg/dL (<2.0)
[2023-07-21 22:07] LABS: Add Urine Microscopic? NO
[2023-07-21 22:33] LABS: Troponin I < 0.012 ng/mL (0.000-0.034)
--- NOTE | 2023-07-21 23:22 | ADMGEN ---
2315: This patient, Nohemy Ryo, was admitted to IMU Room 207-01. Patient/family oriented to hospital policies and general routines including ID bracelet, bed and alarms, visiting hours, pain management, procedures, bathroom and other care routines, personal items, smoking policy, room service/diet, and visiting hours. Information on how to activate the Rapid Response Team has been discussed. Patient/Family are encouraged to report perceived risks to care and to ask questions if they do not understand what they are told or what they should do.
[2023-07-22] VITALS (12 sets, daily range): BP systolic 97–107; BP diastolic 41–54; PULSE 73–98; RESP 14–20; TEMP 36.4–36.9; O2SAT 96–98
--- NOTE | 2023-07-22 | EST_ITS ---
Patient Info Name: Nohemy Roy Age: 68 years : 1955 Gender: Female Ht: 62 in Wt: 202 lbs BSA: 2.05 m2 HR: 80 bpm BP: 108 / 47 mmHg Exam Date: 07/22/2023 12:34 PM Exam Location: Echo Lab Patient Status: Inpatient Admit Date: 07/21/2023 Staff Ordering Physician: Loreto Marcano MD Attending Provider: Loreto Marcano MD Exercise Technologist: Starr Avalos RDCS Nurse: Mary Ann Barron APN Exam Type: CA stress amilcar w NM Study Info A regadenoson stress test was performed. Summary 1. With low QRS voltage, otherwise normal ECG. 2. No ST or T-wave abnormalities following Lexiscan injection. 3. Clinically and electrocardiographically unremarkable Lexiscan stress test. 4. Myocardial perfusion imaging study to be reported by Radiology. Protocol: Lexiscan Stress ECG Details Stage: REST Duration (min): 8 min : 9 sec HR (bpm): 80 SBP (mmHg): 108 DBP (mmHg): 47 Stage: REST Duration (min): 12 min : 25 sec HR (bpm): 77 SBP (mmHg): 108 DBP (mmHg): 47 Stage: STAGE 1 Duration (min): 1 min : 0 sec HR (bpm): 82 SBP (mmHg): 108 DBP (mmHg): 47 Stage: RECOVERY Duration (min): 1 min : 0 sec HR (bpm): 94 SBP (mmHg): 108 DBP (mmHg): 47 Stage: RECOVERY Duration (min): 2 min : 0 sec HR (bpm): 90 SBP (mmHg): 108 DBP (mmHg): 47 Stage: RECOVERY Duration (min): 3 min : 0 sec HR (bpm): 86 SBP (mmHg): 123 DBP (mmHg): 67 Stage: RECOVERY Duration (min): 3 min : 2 sec HR (bpm): 87 SBP (mmHg): 123 DBP (mmHg): 67 Rest HR: 77 bpm Peak HR: 95 bpm Rest Sys BP: 108 mmHg Peak Sys BP: 123 mmHg Max Pred HR: 152 bpm % Max Pred HR: 63 % Target HR: 129 bpm Max RPP: 11,685 bpm*mmHg Termination Reason: Completed protocol Cardiac Symptoms: None Total Time: 1 min : 0 sec Rest Wall BP: 47 mmHg Peak Wall BP: 67 mmHg Total Dose: 0.4 mg Resting ECG With low QRS voltage, otherwise normal ECG. Stress ECG No ST or T-wave abnormalities following Lexiscan injection. Report Signatures
--- NOTE | 2023-07-22 04:36 | ECG_ITS ---
Measurements Intervals [place] Rate: 87 P: 148 IA: 190 QRS: 152 QRSD: 82 T: 151 QT: 379 QTc: 457 Interpretive Statements SINUS RHYTHM ARM LEADS REVERSED LOW VOLTAGE IN PRECORDIAL LEADS BASELINE ARTIFACT- I, III, AVR, AVL, V2 BORDERLINE ECG COMPARED TO ECG 07/21/2023 22:05:15 NO SIGNIFICANT CHANGES Electronically Signed On 07-22-2023 6:33:26 TRANSCRIPTION MANAGER by Faisal Gonzalez D.O.
[2023-07-22] MEDS: MORPHINE SULFATE (*CRX) 2 MG/ML INJ 1 MG IV PUSH (04:58)
[2023-07-22] MEDS: ONDANSETRON INJ 4 MG/2 ML VIAL IV PUSH (04:58)
[2023-07-22] MEDS: GABAPENTIN 100 MG CAPSULE 200 MG PO ×2 (09:10→17:21)
[2023-07-22] MEDS: buPROPion HCL XL (24 HR) 150 MG TABCR PO (09:10)
[2023-07-22] MEDS: PANTOPRAZOLE 40 MG TABLET PO (09:11)
[2023-07-22] MEDS: DULoxetine HCL 60 MG CAPSULE.DR PO (09:15)
[2023-07-22] MEDS: FOLIC ACID 1 MG TABLET 2 MG PO (09:18)
[2023-07-22] MEDS: ASPIRIN 81 MG ENTERIC TABLET PO (09:33)
[2023-07-22] MEDS: BUMETANIDE 1 MG TABLET PO (13:31)
[2023-07-22] MEDS: LINACLOTIDE 145 MCG CAPSULE 290 MCG PO (13:32)
[2023-07-22] MEDS: HYDROXYCHLOROQUINE SULFATE 200 MG TABLET PO (13:33)
[2023-07-22] MEDS: LORATADINE 10 MG TABLET PO (13:33)
[2023-07-22] MEDS: DOCUSATE SODIUM 100 MG CAPSULE 200 MG PO (13:33)
--- NOTE | 2023-07-22 15:03 | PM.CNCAR ---
Assessment and Plan Assessment and plan (1) Chest pain: Qualifiers: Chest pain type: unspecified Qualified Code(s): R07.9 - Chest pain, unspecified Code(s): R07.9 - Chest pain, unspecified Status: Acute Plan This is a 60 area lady with an history of intermittent episodes of chest pain for quite a few years. She has never been found to have ischemic heart disease. She has had a number of stress test there which are not impressively abnormal and she did have a negative coronary angiogram as mentioned above. At this point I believe we should stop being concerned that this patient has coronary artery disease since it has been demonstrated angiographically that she does not. He she can be discharged from my perspective with follow-up with her PCP. Micah Linda MD [facility] History of Present Illness History of Present Illness Consult date/time: 07/22/23 15:03 Reason For Visit: Chest Pain Narrative: This 68-year-old woman who does not have any history of heart disease and is seen in the hospital here with some frequency with episodes of chest pain. I am seeing her at the request of the hospital physicians because of chest pain that brought her to the emergency room again last night. She states she had episode of relatively severe central substernal to low substernal chest discomfort that began while she was at home performing usual household activities. This is not associated with the sense of air hunger diaphoresis nausea vomiting or radiation to any other location the body. Her electrocardiograms x4 look unremarkable. She has had a series of 3 troponin levels are negative. Her admitting physicians ordered a Lexiscan nuclear stress test which was done earlier this morning. The Lexiscan stress test demonstrates a reversible inferior defect is most consistent with diaphragmatic attenuation and an ejection fraction of greater than 70%. This is a patient that has been seen previously a number of occasions with chest pain and she is known not to have coronary artery disease by virtue of a negative angiogram that was done by myself in 2016. She does not have any other pertinent history at this time. Review of Systems Constitutional: Constitutional: Reports no additional constitutional complaints Eyes: Eyes: Reports no additional eye complaints ENT: Reports system reviewed and no additional complaints, except as documented Cardiovascular: Cardiovascular: Reports as per HPI Respiratory: Respiratory: Reports no additional respiratory complaints Gastrointestinal: Gastrointestinal: Reports no additional gastrointestinal complaints Musculoskeletal: Musculoskeletal: Reports back pain Integumentary/Breasts: Skin/Breast: Reports system reviewed and no additional complaints, except as docu Neurologic: Reports system reviewed and no additional complaints, except as documented Endocrine: Endocrine: Reports no additional endocrine complaints Hematologic/Lymphatic: Hematologic/Lymphatic: Reports no additional hematologic/lymphatic complaints Allergic/Immunologic: Allergic/Immunologic: Reports no additional allergic/immunologic complaints PMFSH Past Medical History Medical History Angina of effort Arthritis Asthma CAD (coronary atherosclerotic disease) Depression GERD (gastroesophageal reflux disease) H/O: HTN (hypertension) Hyperlipidemia Kidney stones Moderate persistent asthma without complication Obese Obstructive sleep apnea (adult) (pediatric) OWEN (obstructive sleep apnea) Rhinitis Surgical History Surgical History History of cholecystectomy S/P appy Family History Family History (Updated 07/21/23 @ 23:33 by Eleazar Rothman RN) Mother Chronic HF (heart failure) Family history of diabetes mellitus in first degree relative Cerebrovascular accident Father Family history of
--- NOTE | 2023-07-22 15:28 | PC.NURSE ---
[id number] in [place] dept for stress test
--- NOTE | 2023-07-22 15:47 | PM.DS ---
DS: Admitting Diagnosis Discharge Date 07/22/23 Admitting Diagnosis Chest pain DS: Discharge Diagnosis Discharge Diagnosis (1) Chest pain: Qualifiers: Chest pain type: unspecified Qualified Code(s): R07.9 - Chest pain, unspecified Code(s): R07.9 - Chest pain, unspecified Status: Acute Assessment and Plan: Place in observation in IMU Troponins x3 negative Lexiscan stress test in a.m. Supportive care CXR: No active cardiopulmonary disease Troponin: Troponins x3 negative CTA Chest: No pulmonary embolism or acute cardiopulmonary abnormality. Lexiscan, 07/22/23: unremarkable Per Cardiology: history of intermittent episodes of chest pain for quite a few years.? She has never been found to have ischemic heart disease.? She has had a number of stress test there which are not impressively abnormal and she did have a negative coronary angiogram as mentioned above.? At this point I believe we should stop being concerned that this patient has coronary artery disease since it has been demonstrated angiographically that she does not.? He she can be discharged from my perspective with follow-up with her PCP. Will DC today, 07/22/23 07/22/23: Lexiscan unremarkable for ischemic disease; Cardiology cleared for DC. (2) Obese: Code(s): E66.9 - Obesity, unspecified Status: Acute Assessment and Plan: BMI 37; diet and lifestyle modification (3) GERD (gastroesophageal reflux disease): Code(s): K21.9 - Gastro-esophageal reflux disease without esophagitis Status: Acute Assessment and Plan: PPI (4) Obstructive sleep apnea (adult) (pediatric): Code(s): G47.33 - Obstructive sleep apnea (adult) (pediatric) Status: Acute Assessment and Plan: CPAP at nighttime Plan Assessment and plan (1) Chest pain: ?Qualifiers: ?Chest pain type:?unspecified? Qualified Code(s):?R07.9 - Chest pain, unspecified ?Code(s): R07.9 - Chest pain, unspecified ?Status:?Acute ?Assessment and Plan: Place in observation in IMU Troponins x3 negative Lexiscan stress test in a.m. Supportive care (2) GERD (gastroesophageal reflux disease): ?Code(s): K21.9 - Gastro-esophageal reflux disease without esophagitis ?Status:?Acute ?Assessment and Plan: PPI (3) Obstructive sleep apnea (adult) (pediatric): ?Code(s): G47.33 - Obstructive sleep apnea (adult) (pediatric) ?Status:?Acute ?Assessment and Plan: CPAP at nighttime 4. Obesity, BMI 37. Diet and lifestyle modification DS: Summary Hospital Course Reason for hospitalization: Chest pain Hospital Course: Nohemy Roy is a 68-year-old female with past medical history significant for coronary artery disease, are a, GERD, obstructive sleep apnea, asthma.? Patient presented to the emergency room due to chest pain localized to the retrosternal area, patient denies any prior or chest pain, it happened while at rest patient had some nausea and dizziness with it was released with pain medication.? Patient denies any fevers, rigors, chills.? Has been her usual state of health.? Preliminary workup has been essentially nonrevealing.? Patient has been placed in observation for further evaluation management and treatment. CXR: No active cardiopulmonary disease Troponin: Troponins x3 negative CTA Chest: No pulmonary embolism or acute cardiopulmonary abnormality. [facility], 07/22/23: unremarkable Per Cardiology: history of intermittent episodes of chest pain for quite a few years.? She has never been found to have ischemic heart disease.? She has had a number of stress test there which are not impressively abnormal and she did have a negative coronary angiogram as mentioned above.? At this point I believe we should stop being concerned that this patient has coronary artery disease since it has been demonstrated angiographically that she does not.? He she can be discharged from my perspective with fo
[2023-07-22] MEDS: CHOLECALCIFEROL 1,000 UNITS TABLET 5000 UNITS PO (17:18)
[2023-07-22] MEDS: PRAVASTATIN SODIUM 20 MG TABLET 40 MG PO (17:18)
--- NOTE | 2023-07-22 17:58 | PC.NURSE ---
wallet returned to pt
== END 2023-07-22 17:49 | disposition home or self-care (01) ==
LOC: ANHED 22:08 → ANHIMU 23:36
PROVIDERS: Emergency Medicine; Admitting Provider Internal Medicine; Emergency Provider Physician Assistant; PCP Physician Assistant; Visit Provider Internal Medicine
DX: R07.9 Chest pain, unspecified (principal); R06.00 Dyspnea, unspecified; R00.2 Palpitations; I10 Essential (primary) hypertension; K21.9 Gastro-esophageal reflux disease without esophagitis; J45.40 Moderate persistent asthma, uncomplicated; E66.9 Obesity, unspecified; Z68.37 Body mass index [BMI] 37.0-37.9, adult; I95.9 Hypotension, unspecified; F32.A Depression, unspecified; E78.5 Hyperlipidemia, unspecified; G47.33 Obstructive sleep apnea (adult) (pediatric); Z99.89 Dependence on other enabling machines and devices; Z79.82 Long term (current) use of aspirin; Z79.1 Long term (current) use of non-steroidal anti-inflammatories (NSAID); Z79.891 Long term (current) use of opiate analgesic; Z79.899 Other long term (current) drug therapy; Z82.49 Family history of ischemic heart disease and other diseases of the circulatory system
CPT/HCPCS: 36415; 71046; 71275; 78452; 80053; 81003; 83690; 83880; 84484; 85025; 85380; 85610; 85730; 93005; 93017; 96361; 96374; 96375; 96376; 99285; A9270; A9502; G0378; J2270; J2405; J2785; J7030; Q9967

== ENCOUNTER 2023-08-02 10:06 | Outpatient (CLI) | payer OTHER, SELFPAY ==
--- NOTE | ~2023-08-02 | MM_ITS ---
EXAMINATION: MM screening yuriy BI w deshawn HISTORY: Screening TECHNIQUE: Craniocaudal and mediolateral oblique 3-D tomosynthesis images were obtained and synthetic 2-D images were generated. CAD analysis was submitted and interpreted. COMPARISON: Comparison to multiple prior studies sequentially, with oldest reviewed study dated 01/27. BREAST PARENCHYMAL COMPOSITION: There are scattered areas of fibroglandular density. FINDINGS: Stable clustered subareolar calcifications of the right breast. There is no evidence of john picious mass, calcification, or architectural distortion to suggest malignancy in either breast. Ther e has been no suspicious interval change. IMPRESSION: 1. No mammographic evidence of malignancy. 2. Recommend routine screening mammography in one year. BI-RADS Category 2: Benign finding(s). Reviewed, dictated and finalized at location A. STOS SURVEYOR
== END 2023-08-02 10:07 | disposition home or self-care (01) ==
PROVIDERS: PCP Physician Assistant; Visit Provider Physician Assistant
DX: Z12.31 Encounter for screening mammogram for malignant neoplasm of breast (principal)
CPT/HCPCS: 77063; 77067

== ENCOUNTER 2023-08-30 05:19 | Day surgery (SDC) | payer OTHER, SELFPAY ==
[2023-08-05 13:59] VITALS: BMI 34.4
--- NOTE | 2023-08-26 12:42 | SUR.PREOP ---
Patient called regarding upcoming procedure. Reviewed preop instructions, appointment times, and procedure prep.
--- NOTE | 2023-08-29 14:35 | PM.HPGS ---
History of Present Illness History of Present Illness Consent: Risks, benefits, and alternatives have been discussed and questions answered. Patient agrees to proceed with procedure. Chief complaint: GERD Narrative: Nohemy Roy is a 68 year old female With chronic reflux symptoms which she had been taking Nexium 40 mg b.i.d.. she had recently been in the emergency room. reports increased mid sternal chest burning and feels like acid is coming all the way up her esophagus and into her mouth. Her throat is sore because of this and also coughing more frequent. She has tried multiple PPIs in the past but usually quit working after 8-9 months She had endoscopy 4 years ago which was unremarkable. she has been taken off PPIs which were not working any way. She took air fit for while but it seems to make the heartburn worse also, she is taking an injectable medication for osteoporosis which also aggravates her heartburn. She has frequent episodes of regurgitation, particularly at night. Review of Systems Review of Systems: All systems reviewed & are unremarkable except as noted in HPI and below PMFSH Past Medical History Medical History Angina of effort Arthritis Asthma CAD (coronary atherosclerotic disease) Depression GERD (gastroesophageal reflux disease) H/O: HTN (hypertension) Hyperlipidemia Kidney stones Moderate persistent asthma without complication Obese Obstructive sleep apnea (adult) (pediatric) OWEN (obstructive sleep apnea) Rhinitis Surgical History Surgical History History of cholecystectomy History of left knee replacement S/P appy Family History Family History Mother Chronic HF (heart failure) Family history of diabetes mellitus in first degree relative Cerebrovascular accident Father Family history of malignant neoplasm of kidney Family history of liver disease Carcinoma of colon Atrial fibrillation Other Acute myocardial infarction Asthma Diabetes mellitus Family history of arthritis Family history of cardiovascular disease Family history of chronic obstructive pulmonary disease Family history of congestive heart failure Hypertension Malignant neoplasm of prostate Social History Social History Smoking status: Never smoker Alcohol intake: never Substance use type: does not use Do You Feel Safe in your Home?: Yes Lack of Transportation: No Lack of Food: Never True Current Housing: I Have Housing Concerned About Future Housing: No Difficulty Paying Gas/Electric Bills: No Difficulty Paying for Meds: No Currently Unemployed: No Education: Decline to Answer Difficulty w/ Childcare or Family Care: No Living arrangements: alone Spiritual care concerns: No Meds Home Medications and Allergies Home Medications Medication Instructions Recorded Confirmed Type aspirin 81 mg tablet,delayed 81 mg PO DAILY 06/20/19 08/30/23 History release (Adult Low Dose Aspirin) bupropion HCl 150 mg 24 hr tablet, 150 mg PO QAM 06/20/19 08/30/23 History extended release hydroxychloroquine 200 mg tablet 200 mg PO BID 06/20/19 08/30/23 History montelukast 10 mg tablet 10 mg PO QAM AND QHS 06/20/19 08/30/23 History potassium chloride 10 mEq 10 meq PO DAILY 06/20/19 08/30/23 History tablet,extended release pravastatin 40 mg tablet 40 mg PO DAILY 06/20/19 08/30/23 History folic acid 1 mg tablet 2 mg PO DAILY 06/21/19 08/30/23 History duloxetine 60 mg capsule,delayed 60 mg PO DAILY 08/20/19 08/30/23 History release calcium carb-ergocalciferol (vit 1 tablet PO BID 03/08/21 08/30/23 History D2) 600 mg calcium-200 unit tablet cholecalciferol (vitamin D3) 125 125 mcg PO DAILY 03/08/21 08/30/23 History mcg (5,000 unit) tablet (Vitamin D3)
[2023-08-30 06:12] VITALS: BP 123/64; PULSE 76; RESP 16; TEMP 36.4; O2SAT 97
[2023-08-30] MEDS: LACTATED RINGERS 1,000 ML 150 ML IV CONT (06:22)
[2023-08-30] MEDS: VANCOMYCIN 1,250 MG/NS 250 ML 1,250 MG/250 ML BAG 166.67 MG IVPB (06:24)
--- NOTE | 2023-08-30 06:54 | WPDANESEPPF ---
Anes - Initial Pre Proc Eval Procedure: Operation Date: 08/30/23 07:30 Proposed Procedures p Esophagogastroduodenoscopy - Raad Daniels MD Date/Time: 08/30/23 06:54 Surgeon: Raad Daniels MD Pre Op Diagnosis: GERD Patient Data Age: 68 Gender: F Height: 1.63 m Weight: 92.8 kg Last Vital Signs Temp 36.4 C L 08/30/23 06:12 Pulse 76 08/30/23 06:12 Resp 16 08/30/23 06:12 BP 123/64 08/30/23 06:12 Pulse Ox 97 08/30/23 06:12 O2 Del Method Room Air 08/30/23 06:12 Allergies Allergy/AdvReac Type Severity Reaction Status Date / Time meperidine Allergy Severe HIVES Verified 08/30/23 06:09 Penicillins Allergy Severe RASH Verified 08/30/23 06:09 hydrocodone Allergy Intermediate HIVES Verified 08/30/23 06:09 Home Medications Medication Instructions Recorded Confirmed Type aspirin 81 mg tablet,delayed 81 mg PO DAILY 06/20/19 08/30/23 History release (Adult Low Dose Aspirin) bupropion HCl 150 mg 24 hr tablet, 150 mg PO QAM 06/20/19 08/30/23 History extended release hydroxychloroquine 200 mg tablet 200 mg PO BID 06/20/19 08/30/23 History montelukast 10 mg tablet 10 mg PO QAM AND QHS 06/20/19 08/30/23 History potassium chloride 10 mEq 10 meq PO DAILY 06/20/19 08/30/23 History tablet,extended release pravastatin 40 mg tablet 40 mg PO DAILY 06/20/19 08/30/23 History folic acid 1 mg tablet 2 mg PO DAILY 06/21/19 08/30/23 History duloxetine 60 mg capsule,delayed 60 mg PO DAILY 08/20/19 08/30/23 History release calcium carb-ergocalciferol (vit 1 tablet PO BID 03/08/21 08/30/23 History D2) 600 mg calcium-200 unit tablet cholecalciferol (vitamin D3) 125 125 mcg PO DAILY 03/08/21 08/30/23 History mcg (5,000 unit) tablet (Vitamin D3) cyclobenzaprine 5 mg tablet 5 mg PO TID PRN Muscle spasms 03/08/21 08/30/23 History docusate sodium 100 mg capsule 200 mg PO BID 03/08/21 08/30/23 History (Colace) ropinirole 0.5 mg tablet 1 mg PO HS 07/14/21 08/30/23 History abatacept 125 mg/mL subcutaneous 125 mg subcut WEEKLY 07/22/23 08/30/23 History syringe (Orencia) bumetanide 1 mg tablet 1 mg PO BID 07/22/23 08/30/23 History cetirizine 10 mg tablet 10 mg PO DAILY 07/22/23 08/30/23 History clobetasol 0.05 % lotion (Clobex) 1 applic topical BID PRN Itching 07/22/23 08/30/23 History gabapentin 100 mg capsule 200 mg PO BID 07/22/23 08/30/23 History linaclotide 290 mcg capsule 290 mcg PO DAILY 07/22/23 08/30/23 History (Linzess) tramadol 50 mg tablet 50 mg PO Q6H PRN Pain 07/22/23 08/30/23 History teriparatide 20 mcg/dose (600 20 mcg subcut DAILY 08/04/23 08/30/23 History mcg/2.4 mL) subcutaneous pen injector (Forteo) Patient hx anesthesia problems: none Family hx anesthesia problems: none Results Review: All pre-operative results and documents have been reviewed as part of the pre-operative evaluation. [facility] Past Medical History Medical History Angina of effort Arthritis Asthma CAD (coronary atherosclerotic disease) Depression GERD (gastroesophageal reflux disease) H/O: HTN (hypertension) Hyperlipidemia Kidney stones Moderate persistent asthma without complication Obese Obstructive sleep apnea (adult) (pediatric) OWEN (obstructive sleep apnea) Rhinitis Surgical History Surgical History History of cholecystectomy History of left knee replacement S/P appy Family History Family History Mother Chronic HF (heart failure) Family history of diabetes mellitus in first degree relative Cerebrovascular accident Father Family history of malignant neoplasm of kidney Family history of liver disease Carcinoma of colon Atrial fibrillation Other Acute myocardial infarction Asthma Diabetes mellitus Family history of arthritis Family history of cardiovascular disease Family history of chronic obstru
[2023-08-30] MEDS: BENZOCAINE (*SP) 60 ML SPRAY CAN (HURRICAINE) 1 SPRAY MUCOUS MEM (07:34)
[2023-08-30 07:48] VITALS: BP 90/42; PULSE 75; RESP 26; O2SAT 96
[2023-08-30 07:58] VITALS: BP 100/46; PULSE 69; RESP 16; O2SAT 96
[2023-08-30 08:08] VITALS: BP 102/48; PULSE 70; RESP 18; O2SAT 98
== END 2023-08-30 08:20 | disposition home or self-care (01) ==
PROVIDERS: PCP Physician Assistant; Visit Provider Internal Medicine Gastroenterology
PROC: 0DJ08ZZ Inspection of Upper Intestinal Tract, Via Natural or Artificial Opening Endoscopic (ICD-10-PCS; CPT 43235; principal; 2023-08-30 07:30)
DX: K21.01 Gastro-esophageal reflux disease with esophagitis, with bleeding (principal); K22.70 Barrett's esophagus without dysplasia; I25.10 Atherosclerotic heart disease of native coronary artery without angina pectoris; J45.909 Unspecified asthma, uncomplicated; E78.5 Hyperlipidemia, unspecified; I10 Essential (primary) hypertension; G47.33 Obstructive sleep apnea (adult) (pediatric); E66.9 Obesity, unspecified; Z68.35 Body mass index [BMI] 35.0-35.9, adult; Z96.652 Presence of left artificial knee joint
CPT/HCPCS: 43239; 87081; 88305; J2704; J3370; J7120

== ENCOUNTER 2023-10-03 07:57 | Outpatient (CLI) | payer OTHER, SELFPAY ==
--- NOTE | ~2023-10-03 | XR_ITS ---
EXAMINATION: XR UGIAC w barium swallow DATE: 10/03/2023 08:53 INDICATION: Gastroesophageal reflux disease. TECHNIQUE: The patient drank thick barium, gas-producing crystals, and thin barium. Fluoroscopy of th e esophagus, stomach, and proximal small bowel was performed. Fluoroscopy exposure time was 0.7 minut es. The total number of images was 273. Total dose-area product was 1.992 Gy-cm^2. COMPARISON: Upper gastrointestinal series 06/21/2022 FINDINGS: There is no mass or stricture of the esophagus. Esophageal motility is normal. There is no hiatal hernia. There was gastroesophageal reflux with provocative maneuvers. The stomach and proximal small bowel show normal folding patterns. Surgical clips in the right upper quadrant are likely from cholecystectomy. IMPRESSION: 1. Gastroesophageal reflux with provocative maneuvers. Reviewed, dictated and finalized at location A.
== END 2023-10-03 07:58 | disposition home or self-care (01) ==
PROVIDERS: PCP Physician Assistant; Visit Provider Surgery
DX: K21.00 Gastro-esophageal reflux disease with esophagitis, without bleeding (principal)
CPT/HCPCS: 74246

== ENCOUNTER 2023-10-10 14:54 | Emergency (ER) | payer OTHER, SELFPAY ==
--- NOTE | ~2023-10-10 | CT_ITS ---
EXAMINATION: CT abdomen pelvis wo con DATE: 10/10/2023 18:43 INDICATION: L flank/LLQ pain, UTI, hx stones TECHNIQUE: Computed tomography (CT) of the abdomen and pelvis was performed without intravenous contr ast. Automated exposure control and iterative reconstruction technique were employed. The dose-length product was 999.18 mGy-cm. COMPARISON: MRI abdomen 08/19/2007 report only, CT abdomen pelvis on 523 and 06/18/2015 reports only. FINDINGS: Lower thorax: Minimal bibasilar scar/atelectasis. Right medial lower lobe calcified granuloma. Liver: 5.2 cm slightly lobulated soft tissue density mass replacing the caudate lobe, previously diag nosed to be a hemangioma. Biliary/Gallbladder: Gallbladder is absent. No bile duct dilation. Pancreas: No mass or duct dilation. Spleen: Normal. Adrenals:No mass. Kidneys: Punctate, nonobstructing left inferior pole calcifications, likely dystrophic rather than ne phroliths. No hydronephrosis. Simple right midpole cyst. GI tract: No small or large bowel dilation. Normal appendix. Mesentery/Peritoneum: No ascites, mass, or free air. Calcified node in the reza hepatis. Retroperitoneum: No mass. Pelvis: Prominent pelvic fat with narrowing of the urinary bladder. Absent uterus. Ovaries not confid ently identified. Soft Tissues: Small uncomplicated fat-containing umbilical hernia. Bones: No acute osseous finding. IMPRESSION: No acute abdominal pelvic process detected. 5.2 cm caudate lobe cavernous hemangioma. Pelvic lipomatosis. Reviewed, dictated and finalized at location K.
[2023-10-10 14:58] VITALS: BP 142/71; PULSE 107; RESP 16; TEMP 37.1; O2SAT 96
[2023-10-10 15:37] LABS: Basophils Percent Auto 0.3 % (0.2-1.2); Eosinophils Absolute Auto 0.2 K/mm3 (0-0.3); Eosinophils Percent Auto 2.8 % (0-4.4); Hematocrit 40.6 % (37.0-47.0); Hemoglobin 13.5 g/dL (12.0-15.0); Immature Granulocyte Absolute 0.01 K/mm3 (0.00-0.031); Immature Granulocyte Percent A 0.2 % (0-0.5); Lymphocytes Percent Auto 17.5 % (18.3-44.2); Mean Corpuscular HGB Conc 33.3 g/dl (32-36); Mean Corpuscular Hemoglobin 32.6 pg (26-34); Mean Corpuscular Volume 98.1 fl (80-100); Mean Platelet Volume 9.7 fl (7.4-10.4); Monocytes Absolute Auto 0.7 K/mm3 (0.1-0.6); Monocytes Percent Auto 11.7 % (2.6-8.5); Neutrophils Absolute Auto 3.9 K/mm3 (1.3-6.7); Neutrophils Percent Auto 67.5 % (45.5-73.1); Platelet Count Result 237 k/mm3 (150-375); Red Blood Count 4.14 M/mm3 (4.2-5.4); Red Cell Distribution Width 15.3 % (11.5-14.5); White Blood Count 5.7 K/mm3 (4.5-10.0)
[2023-10-10 15:43] LABS: Appearance Urine Cloudy (Clear); Bacteria Urine 2+ /hpf; Bilirubin Urine Negative (Negative); Blood Urine Negative (Negative); Color Urine Yellow (Yellow); Glucose Urine UA Negative (Negative); Ketones Urine Negative (Negative); Leukocyte Esterase Ur 1+ LEU/UL (Negative); Nitrate Urine Negative (Negative); Non Pathogenic Casts 0-2; Protein Urine Negative (Negative); RBC Urine 0-2 /hpf (0-2); Specific Grav Ur 1.022 (1.001-1.035); Squamous Epithelial Cell Urine Few /hpf (Few); Urobilinogen Urine 0.2 mg/dL (<2.0); pH Urine 5.5 (5.0-9.0)
[2023-10-10 15:46] LABS: Alanine Aminotransferase 22 U/L (6-35); Albumin Level 3.8 g/dL (3.5-5.1); Alkaline Phosphatase 139 U/L (38-126); Anion Gap 2 mmol/L (4-12); Aspartate Amino Transferase 34 U/L (14-36); Bilirubin,Total 0.5 mg/dL (0.2-1.3); Blood Urea Nitrogen 27 mg/dL (7-17); Calcium 9.4 mg/dL (8.4-10.2); Carbon Dioxide 24 mmol/L (22-30); Chloride 111 mmol/L (98-107); Estimated CRCL calculation 57 ml/min; Estimated Glomerular Filt Rate > 60; Glucose 113 mg/dL (65-110); Potassium 3.6 mmol/L (3.4-5.0); Sodium 137 mmol/L (137-145)
[2023-10-10 15:47] LABS: Add Urine Microscopic? YES
--- NOTE | 2023-10-10 17:27 | ED.FEMALEGU ---
HPI - Female Genitourinary General Chief complaint: Urogenital-Female Stated complaint: back pain, supra pubic pain, cloudy urine Time Seen by Provider: 10/10/23 16:59 Source: patient Mode of arrival: ambulatory Limitations: no limitations History of Present Illness HPI Narrative: Patient is a 68-year-old female, with PMH of kidney stones, who presents to the ED with report of lower back pain and urinary symptoms. Patient reports she developed pain throughout her lower back, radiating around to her left lower abdomen on Tuesday. She also reported having cloudy and malodorous urine, dysuria, urinary frequency. Denies hematuria. Has been taking Tylenol for the pain. Has not taken anything for pain today. Does report nausea. Denies vomiting, fevers, diarrhea, constipation. Related Data Home Medications Medication Instructions Recorded Confirmed aspirin 81 mg tablet,delayed 81 mg PO DAILY 06/20/19 09/25/23 release (Adult Low Dose Aspirin) bupropion HCl 150 mg 24 hr tablet, 150 mg PO QAM 06/20/19 09/25/23 extended release hydroxychloroquine 200 mg tablet 200 mg PO BID 06/20/19 09/25/23 montelukast 10 mg tablet 10 mg PO QAM AND QHS 06/20/19 09/25/23 potassium chloride 10 mEq 10 meq PO DAILY 06/20/19 09/25/23 tablet,extended release pravastatin 40 mg tablet 40 mg PO DAILY 06/20/19 09/25/23 folic acid 1 mg tablet 2 mg PO DAILY 06/21/19 09/25/23 duloxetine 60 mg capsule,delayed 60 mg PO DAILY 08/20/19 09/25/23 release calcium carb-ergocalciferol (vit 1 tablet PO BID 03/08/21 09/25/23 D2) 600 mg calcium-200 unit tablet cholecalciferol (vitamin D3) 125 125 mcg PO DAILY 03/08/21 09/25/23 mcg (5,000 unit) tablet (Vitamin D3) cyclobenzaprine 5 mg tablet 5 mg PO TID PRN Muscle spasms 03/08/21 09/25/23 docusate sodium 100 mg capsule 200 mg PO BID 03/08/21 09/25/23 (Colace) ropinirole 0.5 mg tablet 1 mg PO HS 07/14/21 09/25/23 abatacept 125 mg/mL subcutaneous 125 mg subcut WEEKLY 07/22/23 09/25/23 syringe (Orencia) bumetanide 1 mg tablet 1 mg PO BID 07/22/23 09/25/23 cetirizine 10 mg tablet 10 mg PO DAILY 07/22/23 09/25/23 clobetasol 0.05 % lotion (Clobex) 1 applic topical BID PRN Itching 07/22/23 09/25/23 gabapentin 100 mg capsule 200 mg PO BID 07/22/23 09/25/23 linaclotide 290 mcg capsule 290 mcg PO DAILY 07/22/23 09/25/23 (Linzess) tramadol 50 mg tablet 50 mg PO Q6H PRN Pain 07/22/23 09/25/23 omeprazole 20 mg capsule,delayed 40 mg PO BID 09/23/23 release Allergies Allergy/AdvReac Type Severity Reaction Status Date / Time meperidine Allergy Severe HIVES Verified 10/10/23 14:56 Penicillins Allergy Severe RASH Verified 10/10/23 14:56 hydrocodone Allergy Intermediate HIVES Verified 10/10/23 14:56 Review of Systems Review of Systems: CONSTITUTIONAL: Denies fever, chills, or sweats. CARDIOVASCULAR: Denies chest pain. RESPIRATORY: Denies dyspnea. GASTROINTESTINAL: See HPI GENITOURINARY: See HPI MUSCULOSKELETAL: See HPI All systems reviewed & are unremarkable except as noted in HPI and below PMFSH Past Medical History Medical History Angina of effort Arthritis Asthma CAD (coronary atherosclerotic disease) Depression GERD (gastroesophageal reflux disease) H/O: HTN (hypertension) Hyperlipidemia Kidney stones Moderate persistent asthma without complication Obese Obstructive sleep apnea (adult) (pediatric) OWEN (obstructive sleep apnea) Rhinitis Surgical History Surgical History History of cholecystectomy History of left knee replacement S/P appy Family History Family History Mother Chronic HF (heart failure) Family history of diabetes mellitus in first degree relative Cerebrovascular accident Father Family history of malignant neoplasm of kidney Family history of liver disease Carcinoma of colon Atrial
[2023-10-10] MEDS: ACETAMINOPHEN 500 MG TABLET 1000 MG PO (17:34)
[2023-10-10] MEDS: SODIUM CHLORIDE 0.9% IV 1,000 ML 999 ML IV CONT (17:41)
[2023-10-10 17:44] VITALS: BP 122/63; PULSE 84; RESP 18; O2SAT 97
[2023-10-10] MEDS: ONDANSETRON INJ 4 MG/2 ML VIAL IV PUSH (17:44)
[2023-10-10] MEDS: KETOROLAC 15 MG/ML VIAL (*BKC) IV PUSH (19:39)
[2023-10-10 19:50] VITALS: BP 124/68; PULSE 79; RESP 18; TEMP 36.4; O2SAT 98
== END 2023-10-10 19:51 | disposition home or self-care (01) ==
PROVIDERS: Emergency Medicine; Emergency Provider Physician Assistant; PCP Physician Assistant
DX: N39.0 Urinary tract infection, site not specified (principal); D18.03 Hemangioma of intra-abdominal structures; I25.10 Atherosclerotic heart disease of native coronary artery without angina pectoris; I10 Essential (primary) hypertension; J45.40 Moderate persistent asthma, uncomplicated; G47.33 Obstructive sleep apnea (adult) (pediatric); E78.5 Hyperlipidemia, unspecified; E66.9 Obesity, unspecified; Z68.34 Body mass index [BMI] 34.0-34.9, adult; K21.9 Gastro-esophageal reflux disease without esophagitis; Z96.652 Presence of left artificial knee joint; Z87.442 Personal history of urinary calculi; Z90.49 Acquired absence of other specified parts of digestive tract; Z79.82 Long term (current) use of aspirin
CPT/HCPCS: 36415; 74176; 80053; 81001; 85025; 87086; 96365; 96375; 99284; A9270; J0696; J1885; J2405; J7030

== ENCOUNTER 2023-12-08 11:16 | Outpatient (CLI) | payer OTHER, SELFPAY ==
--- NOTE | ~2023-12-08 | XR_ITS ---
EXAMINATION: XR chest 2V DATE: 12/08/2023 12:17 INDICATION: Gastroesophageal reflux disease. TECHNIQUE: Frontal and lateral views of the chest were obtained. COMPARISON: Chest 2 views 07/21/2023 FINDINGS: There is no pneumonia, pleural effusion, or pneumothorax. The heart size is normal. Surgica l clips in the right upper quadrant are likely from cholecystectomy. There is an old healed fracture of proximal left humerus. IMPRESSION: 1. No acute cardiopulmonary disease. Reviewed, dictated and finalized at location A.
--- NOTE | 2023-12-08 11:28 | ECG_ITS ---
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 Measurements Intervals [place] Rate: 69 P: 17 NE: 177 QRS: 40 QRSD: 88 T: 39 QT: 406 QTc: 435 Interpretive Statements SINUS RHYTHM LOW QRS VOLTAGE IN PRECORDIAL LEADS [QRS DEFLECTION < 1.0 mV IN CHEST LEADS] INCOMPLETE RIGHT BUNDLE BRANCH BLOCK No previous ECG available for comparison Electronically Signed On 12-08-2023 13:50:55 CDT by Devika Marin M.D.
[2023-12-08 12:02] LABS: Basophils Percent Auto 0.5 % (0.2-1.2); Eosinophils Absolute Auto 0.1 K/mm3 (0-0.3); Eosinophils Percent Auto 2.3 % (0-4.4); Hematocrit 39.2 % (37.0-47.0); Hemoglobin 13.1 g/dL (12.0-15.0); Immature Granulocyte Absolute 0.02 K/mm3 (0.00-0.031); Immature Granulocyte Percent A 0.5 % (0-0.5); Lymphocytes Absolute Auto 0.75 K/mm3 (0.9-3.2); Mean Corpuscular HGB Conc 33.4 g/dl (32-36); Mean Corpuscular Hemoglobin 33.8 pg (26-34); Mean Platelet Volume 9.4 fl (7.4-10.4); Monocytes Absolute Auto 0.5 K/mm3 (0.1-0.6); Monocytes Percent Auto 10.4 % (2.6-8.5); Neutrophils Absolute Auto 3.1 K/mm3 (1.3-6.7); Neutrophils Percent Auto 69.3 % (45.5-73.1); Platelet Count Result 198 k/mm3 (150-375); Red Blood Count 3.88 M/mm3 (4.2-5.4); Red Cell Distribution Width 15.3 % (11.5-14.5); White Blood Count 4.4 K/mm3 (4.5-10.0)
[2023-12-08 12:18] LABS: Anion Gap 3 mmol/L (4-12); Blood Urea Nitrogen 19 mg/dL (7-17); Calcium 9.1 mg/dL (8.4-10.2); Carbon Dioxide 26 mmol/L (22-30); Chloride 109 mmol/L (98-107); Estimated Glomerular Filt Rate > 60; Glucose 86 mg/dL (65-110); Potassium 3.9 mmol/L (3.4-5.0); Sodium 138 mmol/L (137-145)
== END 2023-12-08 11:17 | disposition home or self-care (01) ==
PROVIDERS: PCP Physician Assistant; Visit Provider Surgery
DX: K44.9 Diaphragmatic hernia without obstruction or gangrene (principal); K21.00 Gastro-esophageal reflux disease with esophagitis, without bleeding; I45.19 Other right bundle-branch block
CPT/HCPCS: 36415; 71046; 80048; 85025; 86850; 86900; 86901; 93005

== ENCOUNTER 2023-12-15 11:37 | Observation (INO) | payer OTHER, SELFPAY ==
--- NOTE | 2023-12-05 15:30 | PC.NURSE ---
Report to the Outpatient Waiting Room, entrance under the green pavilion located off [facility], at time _6:30AM on date __12/14/23 . Planned Procedure Time: _8:30 AM . Time changes happen often and if your time is changed the preop area will call you the afternoon before. - You and your visitor will be asked to self-screen and do not enter if you have any COVID symptoms. - A mask is optional within the hospital at this time. CLEAR LIQUID SUPPER EVENING PRIOR TO SURGERY .MAY HAVE CLEAR LIQUID 3 HOURS PRIOR TO SURGERY (5:30 AM) WATER,7-UP,CLEAR TEA OR APPLE JUICE. 20 OUNCES MAXIMUM Take the following medications with a SIP of water the morning of surgery: ___BUPROPION,DULOXETINE DO NOT STOP ANY OF YOUR OTHER PRESCRIPTION MEDICATIONS PRIOR TO SURGERY ?EXCEPT THE FOLLOWING Medications to discontinue per physician ____ALL VITAMINS AND SUPPLEMENTS 3 DAYS PRE OP .LAST DOSE 12/10/23___MAY CONTINUE [address] BENJAMIN.DO NOT TAKE MORNING OF SURGERY Please no make-up, nail mexican, hairspray, perfume, deodorant, or body powder the day of surgery. No jewelry (including any body piercings) or valuables the day of surgery, leave them at home. Please take a shower or bath the night before, or the morning of, surgery with an antibacterial soap. Wear comfortable, loose fitting clothing. Children are encouraged to wear pajamas. - Jewelry must be removed prior to entering the operating room. Rings and piercings that are not removed may be cut off. - The hospital will not accept responsibility for valuables. - Please leave all valuables, including medications, at home the day of surgery. If you are going home after surgery, a licensed deliver driver must drive you home. - NO public transportation without another adult if you receive anesthesia. - We recommend that an adult stay with you for 24 hours following discharge. - We also recommend that you do not drive, make important decision, drink alcoholic beverages, or take any drugs that were not prescribed by your health care provider for at least 24 hours after your discharge time. Follow any additional instructions given to you from your surgeon. If you or anyone in your household have experienced Covid symptoms in the past week, please notify your surgeon or the nurse liaison at the phone number below for possible testing. Telephone instructions given to _PATIENT and asked if any additional questions and then verbalized understanding. Patient advised to call surgeon office or pre surgery nurse liaison [phone] if any additional questions.
[2023-12-05 15:44] VITALS: BMI 34.3
[2023-12-14] VITALS (15 sets, daily range): BP systolic 101–122; BP diastolic 51–82; PULSE 67–81; RESP 13–18; TEMP 36.2–37.3; O2SAT 92–100; BMI 37.3
[2023-12-14] MEDS: LACTATED RINGERS 1,000 ML 30 ML IV CONT ×2 (07:12→12:28)
--- NOTE | 2023-12-14 07:18 | PM.IMHP ---
H&P: HPI History of Present Illness Date/Time: 12/14/23 07:18 Chief Complaint: Heartburn, esophagitis Narrative: Patient is a 68-year-old woman whom I saw in the office. Despite taking omeprazole twice a day, she was still having heartburn with literally every meal. She also will experience heartburn with drinking fluids. She notices coughing as well. She had an EGD by Dr. Daniels earlier this year which showed a hiatal hernia and esophagitis. His impression at the EGD showed Dupree's esophagus but the pathology showed no metaplasia and definitely no dysplasia. Patient underwent esophageal manometry which was normal. She had a barium swallow upper GI which showed reflux. She has had thorough discussions in the office and is taken to surgery now for laparoscopic Leonor fundoplication for recalcitrant gastroesophageal reflux with esophagitis and hiatal hernia. Review of Systems Review of Systems: All systems reviewed & are unremarkable except as noted in HPI and below (HPI and those items noted below) Constitutional: Constitutional: Denies chills and Denies fever(s) Cardiovascular: Cardiovascular: Reports as per HPI, Denies chest pain, Denies diaphoresis, Denies dyspnea and Denies paroxysmal nocturnal dyspnea Respiratory: Respiratory: Reports as per HPI, Denies chest congestion, Reports cough and Denies dyspnea Gastrointestinal: Gastrointestinal: Reports as per HPI, Reports constipation (Takes Linzess) and Reports heartburn Integumentary/Breasts: Skin/Breast: Denies lesions and Denies rash PMFSH Past Medical History Medical History Angina of effort Arthritis Asthma CAD (coronary atherosclerotic disease) Depression GERD (gastroesophageal reflux disease) H/O: HTN (hypertension) Hyperlipidemia Kidney stones Moderate persistent asthma without complication Obese Obstructive sleep apnea (adult) (pediatric) OWEN (obstructive sleep apnea) Rhinitis Surgical History Surgical History History of cholecystectomy History of left knee replacement S/P appy Family History Family History Mother Chronic HF (heart failure) Family history of diabetes mellitus in first degree relative Cerebrovascular accident Father Family history of malignant neoplasm of kidney Family history of liver disease Carcinoma of colon Atrial fibrillation Other Acute myocardial infarction Asthma Diabetes mellitus Family history of arthritis Family history of cardiovascular disease Family history of chronic obstructive pulmonary disease Family history of congestive heart failure Hypertension Malignant neoplasm of prostate Social History Social History Smoking status: Never smoker Alcohol intake: never Substance use type: does not use Do You Feel Safe in your Home?: Yes Lack of Transportation: No Lack of Food: Never True Current Housing: I Have Housing Concerned About Future Housing: No Difficulty Paying Gas/Electric Bills: No Difficulty Paying for Meds: No Currently Unemployed: No Education: Decline to Answer Difficulty w/ Childcare or Family Care: No Living arrangements: alone Spiritual care concerns: No Meds Home Medications and Allergies Home Medications Medication Instructions Recorded Confirmed Type aspirin 81 mg tablet,delayed 81 mg PO DAILY 06/20/19 12/05/23 History release (Adult Low Dose Aspirin) bupropion HCl 150 mg 24 hr tablet, 150 mg PO QAM 06/20/19 12/05/23 History extended release hydroxychloroquine 200 mg tablet 200 mg PO BID 06/20/19 12/05/23 History montelukast 10 mg tablet 10 mg PO QAM AND QHS 06/20/19 12/05/23 History potassium chloride 10 mEq 10 meq PO DAILY 06/20/19 12/05/23 History tablet,extended release pravastatin 40 mg tablet 40 mg PO DAILY
--- NOTE | 2023-12-14 07:26 | WPDHPUPDATE1 ---
History and Physical Update Update Date/Time: 12/14/23 07:26 History and Physical has been reviewed, including an updated exam of the patient. There are NO changes in the patient's condition. Risks, benefits, and alternatives have been discussed and questions answered. Patient agrees to proceed with procedure.
[2023-12-14] MEDS: ACETAMINOPHEN 500 MG TABLET 1000 MG PO (07:41)
[2023-12-14] MEDS: KETOROLAC 15 MG/ML VIAL (*BKC) IV PUSH (07:43)
--- NOTE | 2023-12-14 08:15 | WPDANESEPPF ---
Anes - Initial Pre Proc Eval Procedure: Operation Date: 12/14/23 08:30 Proposed Procedures p Laparoscopic Leonor Fundoplication with Hiatal Hernia Repair - Michael Fu MD Date/Time: 12/14/23 08:15 Surgeon: Michael Fu MD Pre Op Diagnosis: Gerd with Esophagitis, Hiatal Hernia Patient Data Age: 68 Gender: F Height: 1.63 m Weight: 89.3 kg Last Vital Signs Temp 99.1 F 12/14/23 07:52 Pulse 78 12/14/23 07:52 Resp 16 12/14/23 07:52 BP 115/54 L 12/14/23 07:52 Pulse Ox 100 12/14/23 07:52 O2 Del Method Room Air 12/14/23 07:52 Allergies Allergy/AdvReac Type Severity Reaction Status Date / Time meperidine Allergy Severe HIVES Verified 12/14/23 07:25 Penicillins Allergy Severe RASH Verified 12/14/23 07:25 hydrocodone Allergy Intermediate HIVES Verified 12/14/23 07:25 Home Medications Medication Instructions Recorded Confirmed Type aspirin 81 mg tablet,delayed 81 mg PO DAILY 06/20/19 12/14/23 History release (Adult Low Dose Aspirin) bupropion HCl 150 mg 24 hr tablet, 150 mg PO QAM 06/20/19 12/14/23 History extended release hydroxychloroquine 200 mg tablet 200 mg PO BID 06/20/19 12/14/23 History montelukast 10 mg tablet 10 mg PO QAM AND QHS 06/20/19 12/14/23 History potassium chloride 10 mEq 10 meq PO DAILY 06/20/19 12/14/23 History tablet,extended release pravastatin 40 mg tablet 40 mg PO DAILY 06/20/19 12/14/23 History folic acid 1 mg tablet 2 mg PO DAILY 06/21/19 12/14/23 History duloxetine 60 mg capsule,delayed 60 mg PO DAILY 08/20/19 12/14/23 History release calcium carb-ergocalciferol (vit 1 tablet PO BID 03/08/21 12/14/23 History D2) 600 mg calcium-200 unit tablet cholecalciferol (vitamin D3) 125 125 mcg PO DAILY 03/08/21 12/14/23 History mcg (5,000 unit) tablet (Vitamin D3) cyclobenzaprine 5 mg tablet 5 mg PO TID PRN Muscle spasms 03/08/21 12/14/23 History docusate sodium 100 mg capsule 200 mg PO BID 03/08/21 12/14/23 History (Colace) ropinirole 0.5 mg tablet 1 mg PO HS 07/14/21 12/14/23 History abatacept 125 mg/mL subcutaneous 125 mg subcut WEEKLY 07/22/23 12/05/23 History syringe (Orencia) bumetanide 1 mg tablet 1 mg PO BID 07/22/23 12/14/23 History clobetasol 0.05 % lotion (Clobex) 1 applic topical BID PRN Itching 07/22/23 12/14/23 History gabapentin 100 mg capsule 200 mg PO BID 07/22/23 12/14/23 History tramadol 50 mg tablet 50 mg PO Q6H PRN Pain 07/22/23 12/14/23 History sucralfate 1 gram tablet (Carafate) 1 g PO Q6H 3 months #360 tabs 10/04/23 12/05/23 Rx linaclotide 290 mcg capsule See Rx Instructions .Route 10/11/23 12/05/23 Rx (Linzess) .COMPLEX #30 caps methotrexate sodium 2.5 mg tablet 17.5 mg PO WEEKLY 12/05/23 12/14/23 History Patient hx anesthesia problems: none Family hx anesthesia problems: none Results Review: All pre-operative results and documents have been reviewed as part of the pre-operative evaluation. [facility] Past Medical History Medical History Angina of effort Arthritis Asthma CAD (coronary atherosclerotic disease) Depression GERD (gastroesophageal reflux disease) H/O: HTN (hypertension) Hyperlipidemia Kidney stones Moderate persistent asthma without complication Obese Obstructive sleep apnea (adult) (pediatric) OWEN (obstructive sleep apnea) Rhinitis Surgical History Surgical History History of cholecystectomy History of left knee replacement S/P appy Family History Family History Mother Chronic HF (heart failure) Family history of diabetes mellitus in first degree relative Cerebrovascular accident Father Family history of malignant neoplasm of kidney Family history of liver disease Carcinoma of colon Atrial fibrillation Other Acute myocardial infarction Asthma Diabetes mellitus Family history of arthritis
--- NOTE | 2023-12-14 08:55 | SUR.PREOP ---
0620- PT WAS WALKING BACK WITH VOLUNTEER FROM SURGERY WAITING ROOM AND HAD A FALL. PT FELL FORWARD AND ATTEMPTED TO CATCH HERSELF. PT DID NOT HIT HER HEAD. PT WAS PLACED IN A WHEELCHAIR AND BROUGHT BACK TO PRE OP AREA. PT VITAL SIGNS STABLE. PT STATED HER KNEE GIVES OUT ON HER AT TIMES WITHOUT WARNING AND THEN HER SHOES GOT STUCK ON FLOOR, WHICH CAUSED HER FALL. PT HAS SOME BLEEDING IN HER MOUTH BECAUSE SHE BIT HER LIP. NO LOOSE TEETH NOTED. CHIN HAS MILD BRUISING. PT ABLE TO GET UP AND WALK TO RESTROOM. UPDATED ANESTHESIA AND DR. BENJAMIN ABOUT FALL. DR. BENJAMIN DID A ASSESSMENT ON PT AND SPOKE WITH HER. PT WOULD LIKE TO PROCEED WITH SURGERY.
[2023-12-14] MEDS: ceFAZolin 2 GM/D5W 50 ML 2 GM/50 ML BAG IVPB (09:24)
[2023-12-14] MEDS: BUPIVACAINE/EPINEPHRINE 0.5% 10 ML VIAL 30 ML INFILTRATE (09:59)
--- NOTE | 2023-12-14 12:20 | W.PM.PROC2 ---
Procedure Note - Detailed Date of Procedure 12/14/23 Pre-op Diagnosis Gerd with Esophagitis, Hiatal Hernia Post-op Diagnosis Same Procedure Performed Laparoscopic repair hiatal hernia, laparoscopic Leonor fundoplication Surgeon Michael Fu MD Metalizing 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 Melly Quinones Anesthesia General and Local Indications Despite taking omeprazole twice a day patient has severe reflux symptoms with anything she eats or drinks. EGD showed a hiatal hernia and esophagitis. Esophageal manometry showed normal peristalsis. After thorough discussion, she is taken to surgery now for laparoscopic repair of hiatal hernia and Leonor fundoplication Findings Hiatal hernia with wide diaphragmatic defect. No other significant findings Description of Procedure Patient was taken to surgery and induced into general anesthesia. The abdomen was prepped and draped. The initial trocar was in the midline supraumbilical. This was a 5 mm applied Medical optical trocar and was placed without incident in the peritoneal cavity. Local anesthetic was infiltrated before placement of each of the trocars as well as the Theo retractor. After adequate insufflation, a 10 11 port was placed in the left subcostal position. Two additional operating ports were 10 11 trocars and they were placed above the initial port and 1 on the left and 1 on the right. I then made an incision just left of midline in the epigastric area. The Theo retractor was placed in the abdominal cavity from here and then retracted the liver cephalad and somewhat anteriorly. The Theo retractor was locked in place. Immediately noted was the 5 cm hemangioma that was replacing the lateral segment left lobe of the liver. This was diagnosed on imaging previously. It did not play a significant role in obscuring our visibility of the esophageal hiatus and hernia. We started by dividing the hepatogastric ligament up to and exposing the right stella. I then dissected hernia sac over the anterior midline of the esophageal hiatus. I then went on the patient's right side of the esophagus and dissected some adhesions to the esophagus and stomach as far as I could see. We then turned the greater curvature of the stomach to the anterior midline and grasped the greater omentum near the stomach. Using the LigaSure, I cauterized and entered the lesser sac. I divided the greater omentum from the greater curvature of the stomach up to the left stella. Some posterior adhesions of the stomach were also divided with the LigaSure. I divided the hernia sac on from the left stella and entered the mediastinum from the left side. This gave excellent visualization of the esophagus and the mediastinum. I dissected into the mediastinum and mobilized the esophagus taking down adhesions high up in the esophagus, near the upper aspect of the sternum and clavicle. I then turned the stomach back so the greater curvature was on the patient's left. Elevating the distal esophagus the flap was readily apparent behind the esophagus. I dissected again on the right side of the esophagus in the mediastinum to further mobilize the esophagus circumferentially. This gave excellent length so that at least 6 cm of esophagus was intra-abdominal. I then expose the esophageal hiatus. I used the Endo Stitch and 0 Ethibond suture to close the right and left stella. I started posteriorly and placed interrupted suture until the esophageal hiatus was back to its normal size. I then elevated the distal esophagus and passed the fundus under the esophagus creating our fundoplication. I used the shoe shine technique to ensure that I was not spiraling the wrap. With the wrap in place and held with a noncrushing bowel clamp, we then passed serial bougie dilators orally and down into the stomach. Eventually we reached the 60 Zimbabwean dilator. This was left in place. I then used the Endo Stitch and 0 Ethibond suture. I sutured the stomach to the esophagus and
[2023-12-14 12:49] LABS: Glucose Point of Care 182 mg/dl (65-105)
[2023-12-14] MEDS: fentaNYL CITRATE INJ (*CRX) 100 MCG/2 ML VIAL 25 MCG IV PUSH ×3 (12:50→13:05)
--- NOTE | 2023-12-14 13:11 | SUR.PHASEI ---
Simple mask removed at 1300
--- NOTE | 2023-12-14 14:48 | ADMGEN ---
This patient, Nohemy Roy, was admitted to [facility] Surg Room 331-02. Patient/family oriented to hospital policies and general routines including ID bracelet, bed and alarms, visiting hours, pain management, procedures, bathroom and other care routines, personal items, smoking policy, room service/diet, and visiting hours. Information on how to activate the Rapid Response Team has been discussed. Patient/Family are encouraged to report perceived risks to care and to ask questions if they do not understand what they are told or what they should do.
[2023-12-14] MEDS: BUMETANIDE 1 MG TABLET PO (17:40)
[2023-12-14] MEDS: HYDROXYCHLOROQUINE SULFATE 200 MG TABLET PO (17:41)
[2023-12-14] MEDS: ACETAMINOPHEN 325 MG TABLET 650 MG PO (17:41)
[2023-12-14] MEDS: DOCUSATE SODIUM 100 MG CAPSULE 200 MG PO (17:41)
--- NOTE | 2023-12-14 18:22 | PC.NURSE ---
Pt A&O4 female that participates and contributes in plan of care. Pt family to bring in home CPap. Pt reporting shoulder pain likely related to surgical procedure. Pt resting in bed. Pt educated that she needs to be up to chair by 8 pm. Pt refusing at this time. Will continue to monitor pt.
[2023-12-14] MEDS: ENOXAPARIN 30 MG/0.3 ML SYRINGE SUB-Q (20:34)
[2023-12-14] MEDS: rOPINIRole HCL 1 MG TABLET PO (20:35)
[2023-12-14] MEDS: oxyCODONE/ACETAMINOPHEN (*CRX) 10-325 MG TABLET 1 TAB PO (20:35)
[2023-12-15] VITALS (9 sets, daily range): BP systolic 96–118; BP diastolic 49–70; PULSE 66–74; RESP 16–18; TEMP 36.3–36.7; O2SAT 90–98
--- NOTE | ~2023-12-15 | XR_ITS ---
EXAMINATION: XR shoulder LT min 2V DATE: 12/15/2023 10:49 INDICATION: Left shoulder pain post fall TECHNIQUE: AP internally and externally rotated, AP oblique externally rotated and transscapular Y vi ews of the left shoulder were obtained. COMPARISON: None FINDINGS: Old fracture the surgical neck of the proximal left humerus which is healed with persistent one shaft width anterior displacement, 2-3 cm proximal migration and 30 degree posterior angulation. No acute fracture. Left glenohumeral joint space normal. Widening of the left acromioclavicular joint secondar y to chronic distal clavicle resection. Opacity left lower lung zone which could represent atelectasi s or pneumonia. No evident pneumothorax. There is however extensive soft tissue gas about the left sh oulder extending into the left breast and base of the left neck most likely postoperative gas related to the laparoscopic hiatal hernia repair with Leonor fundoplication performed one day prior. IMPRESSION: 1. Soft tissue gas at the left chest wall and neck likely related to recent surgery. 2. Old healed fracture deformity at the left humeral neck. No other acute osseous abnormality. 2. Opacities at the left lung base which could represent atelectasis or pneumonia. Reviewed, dictated and finalized at location A. IMPRESSION: 1. Soft tissue gas at the left chest wall and neck likely related to recent santana steffany. 2. Old healed fracture deformity at the left humeral neck. No other acute osseo us abnormality. 2. Opacities at the left lung base which could represent atelectasis or pneumon ia.
[2023-12-15] MEDS: oxyCODONE/ACETAMINOPHEN (*CRX) 10-325 MG TABLET 1 TAB PO ×2 (03:01→20:04)
[2023-12-15] MEDS: ACETAMINOPHEN 325 MG TABLET 650 MG PO ×3 (05:38→17:33)
[2023-12-15] MEDS: LINACLOTIDE 145 MCG CAPSULE 290 MCG PO (05:38)
[2023-12-15 06:43] LABS: Hematocrit 40.6 % (37.0-47.0); Hemoglobin 12.3 g/dL (12.0-15.0); Mean Corpuscular HGB Conc 30.3 g/dl (32-36); Mean Corpuscular Volume 108.8 fl (80-100); Mean Platelet Volume 9.7 fl (7.4-10.4); Platelet Count Result 143 k/mm3 (150-375); Red Blood Count 3.73 M/mm3 (4.2-5.4); Red Cell Distribution Width 15.3 % (11.5-14.5); White Blood Count 8.2 K/mm3 (4.5-10.0)
[2023-12-15 07:03] LABS: Anion Gap 5 mmol/L (4-12); Blood Urea Nitrogen 20 mg/dL (7-17); Calcium 8.2 mg/dL (8.4-10.2); Carbon Dioxide 22 mmol/L (22-30); Chloride 109 mmol/L (98-107); Estimated CRCL calculation 76 ml/min; Estimated Glomerular Filt Rate > 60; Glucose 103 mg/dL (65-110); Potassium 3.7 mmol/L (3.4-5.0); Sodium 136 mmol/L (137-145)
[2023-12-15] MEDS: HYDROXYCHLOROQUINE SULFATE 200 MG TABLET PO ×2 (08:27→16:26)
[2023-12-15] MEDS: FOLIC ACID 1 MG TABLET 2 MG PO (08:27)
[2023-12-15] MEDS: polyethylene glycoL 3350 17 GM POWD.PACK PO (08:27)
[2023-12-15] MEDS: buPROPion HCL XL (24 HR) 150 MG TABCR PO (08:27)
[2023-12-15] MEDS: DULoxetine HCL 60 MG CAPSULE.DR PO (08:27)
--- NOTE | 2023-12-15 08:27 | PM.PNGS ---
Progress Note: A&P Assessment and Plan (1) GERD with esophagitis: Qualifiers: Esophagitis bleeding: unspecified whether hemorrhage Qualified Code(s): K21.00 - Gastro-esophageal reflux disease with esophagitis, without bleeding Code(s): K21.00 - Gastro-esophageal reflux disease with esophagitis, without bleeding Status: Chronic Assessment and Plan: Doing well postop day 1. Labs look good. Significant postoperative pain is normal. It is usually quite a bit better tomorrow. Will advance to full liquid diet. Up walking with assistance. Continue in-hospital care. (2) Hiatal hernia: Code(s): K44.9 - Diaphragmatic hernia without obstruction or gangrene Status: Chronic Assessment and Plan: Repaired (3) Obstructive sleep apnea (adult) (pediatric): Code(s): G47.33 - Obstructive sleep apnea (adult) (pediatric) Status: Chronic Assessment and Plan: On CPAP at night Subjective Subjective Date/Time Seen: 12/15/23 08:27 Post Op day: 1 Patient reports: still having pain (Upper abdomen and left chest are worse), tolerating liquids well and afebrile Exam Const: General: comfortable and no acute distress Orientation/consciousness: patient oriented x3 GI: Inspection: non-distended, incision (All incisions healing well) and obesity GI Palp: Yes Soft to palpation, Yes Tenderness to palpation present (GI), No Guarding due to palpation present (GI) and No Rebound tenderness present Neuro: General: patient oriented x3 and no focal motor deficits Extrem: General: no calf tenderness and no edema Psych: Affect: normal affect Insight: Good insight present (Psych) Judgement: Good judgement present (Psych) Objective Data Vital Signs Vital Signs: Vital Signs - 24 hr 12/14/23 12:28 12/14/23 12:31 12/14/23 12:40 Temperature 36.2 C L Pulse Rate 81 76 Respiratory Rate 17 18 Blood Pressure 108/64 107/82 Pulse Oximetry 97 97 97 Oxygen Delivery Simple Face Mask Simple Face Mask Simple Face Mask Oxygen Flow Rate 8 8 8 12/14/23 12:55 12/14/23 13:10 12/14/23 13:25 Temperature Pulse Rate 75 75 75 Respiratory Rate 15 13 16 Blood Pressure 113/64 111/60 112/70 Pulse Oximetry 95 93 93 Oxygen Delivery Simple Face Mask Nasal Cannula Nasal Cannula Oxygen Flow Rate 8 3 4 12/14/23 13:40 12/14/23 13:49 12/14/23 14:20 Temperature 36.2 C L 36.3 C L 36.9 C Pulse Rate 75 76 76 Respiratory Rate 18 16 18 Blood Pressure 121/65 119/72 105/54 L Pulse Oximetry 92 92 93 Oxygen Delivery Nasal Cannula Nasal Cannula Oxygen Flow Rate 4 4 12/14/23 14:35 12/14/23 15:05 12/14/23 16:00 Temperature 36.6 C 36.4 C 36.7 C Pulse Rate 68 71 68 Respiratory Rate 18 18 18 Blood Pressure 101/51 L 111/54 L 106/54 L Pulse Oximetry 93 93 94 Oxygen Delivery Oxygen Flow Rate 12/14/23 20:49 12/14/23 21:45 12/15/23 05:58 Temperature 36.9 C 36.6 C Pulse Rate 67 74 Respiratory Rate 16 18 Blood Pressure 122/68 102/70 Pulse Oximetry 94 95 90 Oxygen Delivery Autopap Oxygen Flow Rate 12/15/23 07:44 Temperature 36.5 C Pulse Rate 66 Respiratory Rate 16 Blood Pressure 112/54 L Pulse Oximetry 95 Oxygen Delivery Oxygen Flow Rate Intake/Output Intake/Output: Intake & Output 12/12/23 12/13/23 12/14/23 12/15/23 23:59 23:59 23:59 23:59 Intake Total 777 Balance 777 Meds/Results Medications: Active Medications Generic Name Dose Route Start Last Admin Trade Name Freq PRN Reason Stop Dose Admin Acetaminophen 650 mg 12/14/23 18:00 12/15/23 05:38 Acetaminophen 325 Mg Tablet PO 650 mg Q6HR JULIA Administration Aspirin 81 mg 12/15/23 09:00 Aspirin 81 Mg Enteric Tablet PO DAILY [facility] Bumetanide 1 mg 12/14/23 17:00 12/14/23 17:40 Bumetanide 1 Mg Tablet PO 1 mg BID JULIA Administration Bupropion HCl 150 mg 12/15/23 09:00 Bupropion Hcl Xl (24 Hr) 150 Mg Tabcr PO QAM [facility] Cyclobenzaprine HCl 5 mg
[2023-12-15] MEDS: BUMETANIDE 1 MG TABLET PO ×2 (08:28→16:26)
[2023-12-15] MEDS: DOCUSATE SODIUM 100 MG CAPSULE 200 MG PO ×2 (08:28→16:26)
[2023-12-15] MEDS: PRAVASTATIN SODIUM 20 MG TABLET 40 MG PO (08:28)
[2023-12-15] MEDS: ASPIRIN 81 MG ENTERIC TABLET PO (08:28)
[2023-12-15] MEDS: ENOXAPARIN 30 MG/0.3 ML SYRINGE SUB-Q (08:29)
[2023-12-15] MEDS: POTASSIUM CHLORIDE 10 MEQ ER TABLET PO (08:31)
--- NOTE | 2023-12-15 09:04 | WPDANESPN ---
Anes - Prog Note Post-Op Date/Time: 12/15/23 09:04 Cardiovascular status: normal Respiratory status: normal Airway patency: baseline Mental status: baseline Post-Op hydration status: normal Vital Signs: Last Vital Signs Temp 36.5 C 12/15/23 07:44 Pulse 66 12/15/23 07:44 Resp 16 12/15/23 07:44 BP 112/54 L 12/15/23 07:44 Pulse Ox 95 12/15/23 07:44 O2 Del Method Autopap 12/14/23 21:45 O2 Flow Rate 4 12/14/23 13:49 Pain Score (VAS): 0 I/O: Intake & Output 12/14/23 12/15/23 12/15/23 23:59 07:59 15:59 Intake Total 527 Balance 527 Laboratory Tests 12/15/23 06:23 12/15/23 06:23 12/14/23 12/15/23 12:47 06:23 WBC 8.2 RBC 3.73 L Hgb 12.3 Hct 40.6 MCV 108.8 H D MCH 33.0 MCHC 30.3 L RDW 15.3 H Plt Count 143 L MPV 9.7 Sodium 136 L Potassium 3.7 Chloride 109 H Carbon Dioxide 22 Anion Gap 5 BUN 20 H Creatinine 0.70 Estim Creat Clear Calc 76 Estimated GFR > 60 Glucose 103 POC Capillary Glucose 182 H Calcium 8.2 L Post-procedural complaints: none Patient Feedback: Patient satisfied with anesthetic care.
[2023-12-15] MEDS: oxyCODONE/ACETAMINOPHEN (*CRX) 5-325 MG TABLET 1 TABLET PO (09:08)
[2023-12-15] MEDS: CYCLOBENZAPRINE HCL 5 MG TABLET PO (11:00)
[2023-12-15] MEDS: fentaNYL CITRATE INJ (*CRX) 100 MCG/2 ML VIAL 25 MCG IV PUSH (11:01)
[2023-12-15] MEDS: IBUPROFEN IV 800 MG/200 ML 800 MG/200 ML BAG 400 MG IVPB (12:54)
[2023-12-15] MEDS: MONTELUKAST SODIUM 10 MG TABLET PO (20:04)
[2023-12-15] MEDS: rOPINIRole HCL 1 MG TABLET PO (20:04)
[2023-12-16 00:20] VITALS: BP 110/46; PULSE 74; RESP 18; TEMP 36.4; O2SAT 98
[2023-12-16] MEDS: ACETAMINOPHEN 325 MG TABLET 650 MG PO ×4 (00:51→20:52)
[2023-12-16 04:00] VITALS: BP 137/66; PULSE 84; RESP 18; TEMP 36.3; O2SAT 95
[2023-12-16] MEDS: oxyCODONE/ACETAMINOPHEN (*CRX) 10-325 MG TABLET 1 TAB PO ×2 (04:29→17:26)
[2023-12-16] MEDS: LINACLOTIDE 145 MCG CAPSULE 290 MCG PO (06:42)
[2023-12-16 07:47] LABS: Hemoglobin 12.4 g/dL (12.0-15.0); Mean Corpuscular HGB Conc 31.8 g/dl (32-36); Mean Corpuscular Hemoglobin 32.6 pg (26-34); Mean Corpuscular Volume 102.6 fl (80-100); Mean Platelet Volume 9.8 fl (7.4-10.4); Platelet Count Result 170 k/mm3 (150-375); Red Cell Distribution Width 15.2 % (11.5-14.5); White Blood Count 6.3 K/mm3 (4.5-10.0)
[2023-12-16 08:05] LABS: Anion Gap 5 mmol/L (4-12); Blood Urea Nitrogen 13 mg/dL (7-17); Calcium 8.7 mg/dL (8.4-10.2); Carbon Dioxide 26 mmol/L (22-30); Chloride 107 mmol/L (98-107); Estimated CRCL calculation 87 ml/min; Estimated Glomerular Filt Rate > 60; Glucose 108 mg/dL (65-110); Potassium 3.8 mmol/L (3.4-5.0); Sodium 138 mmol/L (137-145)
[2023-12-16] MEDS: IBUPROFEN IV 800 MG/200 ML 800 MG/200 ML BAG 400 MG IVPB ×2 (09:36→20:54)
[2023-12-16] MEDS: polyethylene glycoL 3350 17 GM POWD.PACK PO (09:36)
[2023-12-16] MEDS: DOCUSATE SODIUM 100 MG CAPSULE 200 MG PO ×2 (09:41→17:27)
[2023-12-16] MEDS: ASPIRIN 81 MG ENTERIC TABLET PO (09:41)
[2023-12-16] MEDS: buPROPion HCL XL (24 HR) 150 MG TABCR PO (09:42)
[2023-12-16] MEDS: FOLIC ACID 1 MG TABLET 2 MG PO (09:42)
[2023-12-16] MEDS: DULoxetine HCL 60 MG CAPSULE.DR PO (09:42)
[2023-12-16] MEDS: HYDROXYCHLOROQUINE SULFATE 200 MG TABLET PO ×2 (09:42→17:27)
[2023-12-16] MEDS: ENOXAPARIN 40 MG/0.4 ML SYRINGE SUB-Q (09:49)
--- NOTE | 2023-12-16 11:35 | PM.PNGS ---
Progress Note: A&P Assessment and Plan (1) GERD with esophagitis: Qualifiers: Esophagitis bleeding: unspecified whether hemorrhage Qualified Code(s): K21.00 - Gastro-esophageal reflux disease with esophagitis, without bleeding Code(s): K21.00 - Gastro-esophageal reflux disease with esophagitis, without bleeding Status: Chronic Assessment and Plan: Doing well 2 days after hiatal hernia repair and Leonor fundoplication. She is tolerating full liquids without difficulty. I will advance her to low-fiber diet. She is still having considerable amount of left upper quadrant pain which often requires intravenous narcotic analgesics. She is not yet stable to ambulate independently. Labs look good. Continue ambulation and incentive spirometry. Will need to continue inpatient care until more comfortable. (2) Hiatal hernia: Code(s): K44.9 - Diaphragmatic hernia without obstruction or gangrene Status: Chronic Assessment and Plan: Repaired at surgery (3) Chronic constipation: Code(s): K59.09 - Other constipation Status: Chronic Assessment and Plan: Had bowel movement yesterday and is getting MiraLax in addition to her Linzess. (4) H/O: HTN (hypertension): Code(s): Z86.79 - Personal history of other diseases of the circulatory system Status: Chronic (5) Obstructive sleep apnea (adult) (pediatric): Code(s): G47.33 - Obstructive sleep apnea (adult) (pediatric) Status: Chronic Assessment and Plan: On home CPAP settings (6) Moderate persistent asthma without complication: Code(s): J45.40 - Moderate persistent asthma, uncomplicated Status: Chronic Subjective Subjective Date/Time Seen: 12/16/23 11:35 Post Op day: 2 Patient reports: still having pain (Particularly left upper quadrant, requiring IV narcotics occasionally), tolerating liquids well, bowel movement and afebrile Exam Const: General: comfortable and no acute distress Nutritional Appearance: overweight Orientation/consciousness: patient oriented x3 GI: Inspection: non-distended and incision (All incisions dry and healing) GI Palp: Yes Soft to palpation, Yes Tenderness to palpation present (GI), No Guarding due to palpation present (GI), No Hernia present, No Palpable mass present and No Rebound tenderness present Neuro: General: patient oriented x3 and no focal motor deficits Extrem: General: no calf tenderness and no edema Psych: Affect: normal affect Insight: Good insight present (Psych) Judgement: Good judgement present (Psych) Objective Data Vital Signs Vital Signs: Vital Signs - 24 hr 12/15/23 12:00 12/15/23 15:44 12/15/23 20:00 Temperature 36.3 C L 36.4 C Pulse Rate 68 67 Respiratory Rate 16 16 Blood Pressure 118/54 L 108/62 Pulse Oximetry 94 93 94 Oxygen Delivery Nasal Cannula Oxygen Flow Rate 2 12/15/23 20:59 12/15/23 22:34 12/16/23 00:20 Temperature 36.7 C 36.4 C L Pulse Rate 71 74 Respiratory Rate 16 18 Blood Pressure 96/49 L 110/46 L Pulse Oximetry 97 98 98 Oxygen Delivery Autopap Oxygen Flow Rate 12/16/23 04:00 Temperature 36.3 C L Pulse Rate 84 Respiratory Rate 18 Blood Pressure 137/66 Pulse Oximetry 95 Oxygen Delivery Oxygen Flow Rate Intake/Output Intake/Output: Intake & Output 12/13/23 12/14/23 12/15/23 12/16/23 23:59 23:59 23:59 23:59 Intake Total 777 796 440 Balance 777 796 440 Meds/Results Medications: Active Medications Generic Name Dose Route Start Last Admin Trade Name Freq PRN Reason Stop Dose Admin Acetaminophen 650 mg 12/14/23 18:00 12/16/23 06:42 Acetaminophen 325 Mg Tablet PO 650 mg Q6HR [facility] Administration Aspirin 81 mg 12/15/23 09:00 12/16/23 09:41 Aspirin 81 Mg Enteric Tablet PO 81 mg DAILY JULIA Administration Bumetanide 1 mg 12/14/23 17:00 12/16/23 09:39 Bumetanide 1 Mg Tablet PO Not Given BID [facility] Bupropion HCl 150 mg
[2023-12-16 14:00] VITALS: BP 120/56; PULSE 76; RESP 16; TEMP 36.1; O2SAT 92
[2023-12-16 20:00] VITALS: PULSE 76; RESP 16; O2SAT 92
[2023-12-16] MEDS: rOPINIRole HCL 1 MG TABLET PO (20:52)
[2023-12-16] MEDS: MONTELUKAST SODIUM 10 MG TABLET PO (20:53)
[2023-12-16] MEDS: PRAVASTATIN SODIUM 20 MG TABLET 40 MG PO (20:53)
[2023-12-16 22:00] VITALS: BP 113/51; PULSE 79; RESP 16; TEMP 36.6; O2SAT 94
[2023-12-16 22:12] VITALS: PULSE 78; O2SAT 94
[2023-12-17] VITALS (7 sets, daily range): BP systolic 103–108; BP diastolic 45–59; PULSE 75–95; RESP 16–20; TEMP 36.1–36.3; O2SAT 91–96
[2023-12-17] MEDS: ACETAMINOPHEN 325 MG TABLET 650 MG PO ×5 (00:34→23:45)
[2023-12-17] MEDS: LINACLOTIDE 145 MCG CAPSULE 290 MCG PO (05:00)
[2023-12-17] MEDS: IBUPROFEN IV 800 MG/200 ML 800 MG/200 ML BAG 400 MG IVPB (05:00)
[2023-12-17] MEDS: FOLIC ACID 1 MG TABLET 2 MG PO (09:58)
[2023-12-17] MEDS: DULoxetine HCL 60 MG CAPSULE.DR PO (09:59)
[2023-12-17] MEDS: POTASSIUM CHLORIDE 10 MEQ ER TABLET PO (09:59)
[2023-12-17] MEDS: DOCUSATE SODIUM 100 MG CAPSULE 200 MG PO ×2 (09:59→17:31)
[2023-12-17] MEDS: ASPIRIN 81 MG ENTERIC TABLET PO (09:59)
[2023-12-17] MEDS: buPROPion HCL XL (24 HR) 150 MG TABCR PO (09:59)
[2023-12-17] MEDS: HYDROXYCHLOROQUINE SULFATE 200 MG TABLET PO ×2 (10:01→17:31)
[2023-12-17] MEDS: ENOXAPARIN 40 MG/0.4 ML SYRINGE SUB-Q (10:02)
[2023-12-17] MEDS: IBUPROFEN 400 MG TABLET 800 MG PO ×2 (12:53→21:17)
--- NOTE | 2023-12-17 14:27 | PC.NURSE ---
On 12/17/23, the DRIFT MINER, Светлана, provided care and [facility] this [facility]. I have reviewed the DRIFT MINER's documentation and agree with the findings.
--- NOTE | 2023-12-17 14:57 | PM.PNGS ---
Progress Note: A&P Assessment and Plan (1) GERD with esophagitis: Qualifiers: Esophagitis bleeding: unspecified whether hemorrhage Qualified Code(s): K21.00 - Gastro-esophageal reflux disease with esophagitis, without bleeding Code(s): K21.00 - Gastro-esophageal reflux disease with esophagitis, without bleeding Status: Chronic Assessment and Plan: Tolerating solid diet. Still having subcostal pain and not ambulating much Increase activity and wean O2. Home when pain improved. (2) Hiatal hernia: Code(s): K44.9 - Diaphragmatic hernia without obstruction or gangrene Status: Chronic Assessment and Plan: Repaired at surgery (3) Chronic constipation: Code(s): K59.09 - Other constipation Status: Chronic (4) H/O: HTN (hypertension): Code(s): Z86.79 - Personal history of other diseases of the circulatory system Status: Chronic (5) Obstructive sleep apnea (adult) (pediatric): Code(s): G47.33 - Obstructive sleep apnea (adult) (pediatric) Status: Chronic Assessment and Plan: On home CPAP settings (6) Moderate persistent asthma without complication: Code(s): J45.40 - Moderate persistent asthma, uncomplicated Status: Chronic Subjective Subjective Date/Time Seen: 12/17/23 14:57 Interval history: Patient still having significant LUQ pain. Hasn't been ambulating other than to the bathroom. Still on supplemental oxygen. No dysphagia with solid food. Exam GI: Inspection: non-distended and incision (intact with glue) GI Palp: Yes Soft to palpation, Yes Tenderness to palpation present (GI) (LUQ) and No Guarding due to palpation present (GI) Auscultation: normal bowel sounds Objective Data Vital Signs Vital Signs: Vital Signs - 24 hr 12/16/23 20:00 12/16/23 22:00 12/16/23 22:12 Temperature 36.6 C Pulse Rate 76 79 78 Respiratory Rate 16 16 Blood Pressure 113/51 L Pulse Oximetry 92 94 94 Oxygen Delivery Room Air Autopap Oxygen Flow Rate 12/17/23 02:50 12/17/23 06:00 12/17/23 09:55 Temperature 36.3 C L Pulse Rate 75 78 Respiratory Rate 16 Blood Pressure 105/45 L Pulse Oximetry 96 91 91 Oxygen Delivery Autopap Nasal Cannula Oxygen Flow Rate 3 Intake/Output Intake/Output: Intake & Output 12/14/23 12/15/23 12/16/23 12/17/23 23:59 23:59 23:59 23:59 Intake Total 813 097 3294 680 Balance 985 861 2236 680 Meds/Results Medications: Active Medications Generic Name Dose Route Start Last Admin Trade Name Freq PRN Reason Stop Dose Admin Acetaminophen 650 mg 12/14/23 18:00 12/17/23 11:35 Acetaminophen 325 Mg Tablet PO 650 mg Q6HR JULIA Administration Aspirin 81 mg 12/15/23 09:00 12/17/23 09:59 Aspirin 81 Mg Enteric Tablet PO 81 mg DAILY [facility]ULIA Administration Bumetanide 1 mg 12/14/23 17:00 12/17/23 09:59 Bumetanide 1 Mg Tablet PO Not Given BID JULIA Bupropion HCl 150 mg 12/15/23 09:00 12/17/23 09:59 Bupropion Hcl Xl (24 Hr) 150 Mg Tabcr PO 150 mg QAM JULIA Administration Cyclobenzaprine HCl 5 mg 12/14/23 13:59 12/15/23 11:00 Cyclobenzaprine Hcl 5 Mg Tablet PO 5 mg TID PRN Administration Muscle spasms Diphenhydramine HCl 25 mg 12/14/23 13:59 Diphenhydramine Hcl Inj 50 Mg/Ml Vial IV PUSH Q6H PRN Itching Docusate Sodium 200 mg 12/14/23 17:00 12/17/23 09:59 Docusate Sodium 100 Mg Capsule PO 200 mg BID JULIA Administration Duloxetine HCl 60 mg 12/15/23 09:00 12/17/23 09:59 Duloxetine Hcl 60 Mg Capsule.Dr PO 60 mg DAILY JULIA Administration Enoxaparin Sodium 40 mg 12/15/23 09:00 12/17/23 10:02 Enoxaparin 40 Mg/0.4 Ml Syringe SUB-Q 40 mg DAILY JULIA Administration Fentanyl Citrate 12.5 mcg 12/14/23 13:59 Fentanyl Citrate Inj (*Crx) 100 Mcg/2 Ml Vial IV PUSH Q2H PRN Breakthrough Pain Rated 4-6 or NPO Fentanyl Citrate 25 mcg 12/14/23 13:59 12/15/23 11:01 Jorgito
[2023-12-17] MEDS: GABAPENTIN 400 MG CAPSULE PO (21:17)
[2023-12-17] MEDS: MONTELUKAST SODIUM 10 MG TABLET PO (21:17)
[2023-12-17] MEDS: PRAVASTATIN SODIUM 20 MG TABLET 40 MG PO (21:17)
[2023-12-17] MEDS: rOPINIRole HCL 1 MG TABLET PO (21:17)
[2023-12-18 03:00] VITALS: PULSE 80; O2SAT 96
[2023-12-18] MEDS: IBUPROFEN 400 MG TABLET 800 MG PO (05:40)
[2023-12-18] MEDS: LINACLOTIDE 145 MCG CAPSULE 290 MCG PO (05:40)
[2023-12-18] MEDS: ACETAMINOPHEN 325 MG TABLET 650 MG PO (05:40)
[2023-12-18 06:00] VITALS: BP 117/54; PULSE 85; RESP 20; TEMP 36.2; O2SAT 96
[2023-12-18] MEDS: HYDROXYCHLOROQUINE SULFATE 200 MG TABLET PO (09:10)
[2023-12-18] MEDS: ASPIRIN 81 MG ENTERIC TABLET PO (09:10)
[2023-12-18] MEDS: oxyCODONE/ACETAMINOPHEN (*CRX) 10-325 MG TABLET 1 TAB PO (09:10)
[2023-12-18] MEDS: BUMETANIDE 1 MG TABLET PO (09:11)
[2023-12-18] MEDS: FOLIC ACID 1 MG TABLET 2 MG PO (09:11)
[2023-12-18] MEDS: DOCUSATE SODIUM 100 MG CAPSULE 200 MG PO (09:11)
[2023-12-18] MEDS: buPROPion HCL XL (24 HR) 150 MG TABCR PO (09:11)
[2023-12-18] MEDS: POTASSIUM CHLORIDE 10 MEQ ER TABLET PO (09:11)
[2023-12-18] MEDS: ENOXAPARIN 40 MG/0.4 ML SYRINGE SUB-Q (09:11)
[2023-12-18] MEDS: DULoxetine HCL 60 MG CAPSULE.DR PO (09:11)
[2023-12-18] MEDS: polyethylene glycoL 3350 17 GM POWD.PACK PO (09:11)
--- NOTE | 2023-12-18 12:29 | PM.DS ---
DS: Admitting Diagnosis Discharge Date 12/18/2023 Admitting Diagnosis GERD with esophagitis, hiatal hernia, constipation, obstructive sleep apnea, asthma, hypertension DS: Discharge Diagnosis Discharge Diagnosis (1) GERD with esophagitis: Qualifiers: Esophagitis bleeding: unspecified whether hemorrhage Qualified Code(s): K21.00 - Gastro-esophageal reflux disease with esophagitis, without bleeding Code(s): K21.00 - Gastro-esophageal reflux disease with esophagitis, without bleeding Status: Chronic (2) Hiatal hernia: Code(s): K44.9 - Diaphragmatic hernia without obstruction or gangrene Status: Chronic (3) Obstructive sleep apnea (adult) (pediatric): Code(s): G47.33 - Obstructive sleep apnea (adult) (pediatric) Status: Chronic (4) H/O: HTN (hypertension): Code(s): Z86.79 - Personal history of other diseases of the circulatory system Status: Chronic (5) Chronic constipation: Code(s): K59.09 - Other constipation Status: Chronic DS: Summary Hospital Course Reason for hospitalization: Hiatal hernia Hospital Course: This is a 68-year-old woman who presented with a hiatal hernia and gastroesophageal reflux disease. She underwent laparoscopic paraesophageal hiatal hernia repair with Leonor fundoplication on 12/14/[address] Fu. Surgery was uncomplicated and she was then placed on the surgical floor postoperatively for recovery. On postop day 1 she was complaining of some gas pains an incisional pains. She did have a fall the morning of her surgery prior to arriving to the preop area. She was complaining of some shoulder pain therefore a shoulder x-ray was obtained. She was advanced to full liquids and was tolerating liquids with no significant dysphagia or regurgitation. On postop day 2 she was advanced to a soft regular diet. She was still experiencing some of the gas pains and left upper quadrant abdominal pain. She was not ambulating independently yet. On postop day 3 she was still requiring some supplemental oxygen and was not ambulating much. She was still complaining of the left upper quadrant abdominal pain but this appeared likely mostly related to gas pains and I discussed with her that increasing ambulation should help with this. On postop day 4 she was no longer requiring supplemental oxygen. Her pain was controlled with p.o. pain meds. She was tolerating solid diet without any dysphagia or regurgitation. She was discharged on postop day 4. Status at Discharge Functional status at discharge: independent ambulation Overall status at discharge: patient is progressing back to baseline Time Spent with Patient Time attestation: Total time spent providing and/or coordinating discharge services: Time spent: Less than 30 minutes Exam Const: General: comfortable and no acute distress Orientation/consciousness: patient oriented x3 Resp: Effort & Inspection: normal respiratory effort Auscultation: clear to auscultation bilaterally Cardio: Rate: regular rate Rhythm: regular rhythm GI: Inspection: non-distended and incision (intact with glue) GI Palp: Yes Soft to palpation, No Tenderness to palpation present (GI) and No Guarding due to palpation present (GI) Auscultation: normal bowel sounds Discharge Plan Discharge Attending physician on discharge: Michael Fu Discharging Clinician: Urban Gaspar Patient Disposition: Home, Self-Care Activity: may shower, no straining and as tolerated Diet: low fiber Wound Care Instructions: incision open to air Discharge Instructions: 1. May shower and wash over incisions with soap and water. 2. Call office for: -Wound increasingly painful or bleeding -Vomiting -Fever of greater than 101 degrees 3. Expect some blood on dressing and old blood on skin. 4. If no bowel movement for three days, take 1 oz. (30 ml) Milk of Magnesia, if no results, take Fleets enema. 5. No heav
== END 2023-12-18 15:22 | disposition home or self-care (01) ==
LOC: ANHSURGERY 12:03 → ANH3MEDSUR 12-16 11:35
PROVIDERS: Admitting Provider Surgery; PCP Physician Assistant; Visit Provider Surgery
PROC: 0DV44ZZ Restriction of Esophagogastric Junction, Percutaneous Endoscopic Approach (ICD-10-PCS; CPT 43281; principal; 2023-12-14 08:30)
DX: K44.9 Diaphragmatic hernia without obstruction or gangrene (principal); K21.00 Gastro-esophageal reflux disease with esophagitis, without bleeding; G89.18 Other acute postprocedural pain; M25.512 Pain in left shoulder; W19.XXXA Unspecified fall, initial encounter; I25.10 Atherosclerotic heart disease of native coronary artery without angina pectoris; I10 Essential (primary) hypertension; J45.30 Mild persistent asthma, uncomplicated; E78.5 Hyperlipidemia, unspecified; G47.33 Obstructive sleep apnea (adult) (pediatric); K59.09 Other constipation; F32.A Depression, unspecified; E66.9 Obesity, unspecified; Z68.37 Body mass index [BMI] 37.0-37.9, adult; Z79.82 Long term (current) use of aspirin; Z79.631 Long term (current) use of antimetabolite agent
CPT/HCPCS: 43280; 36415; 73030; 80048; 82948; 85027; A9270; G0378; J0330; J0690; J1100; J1170; J1650; J1741; J1885; J2250; J2371; J2405; J2704; J3010; J7120

== ENCOUNTER 2023-12-26 12:58 | Emergency (ER) | payer OTHER, SELFPAY ==
[2023-12-26] VITALS (14 sets, daily range): BP systolic 119–140; BP diastolic 45–69; PULSE 89–95; RESP 16–26; TEMP 36.4–36.6; O2SAT 90–98
--- NOTE | ~2023-12-26 | CT_ITS ---
EXAMINATION: CT brain wo con DATE: 12/26/2023 14:45 INDICATION: Fall with head injury TECHNIQUE: Computed tomography (CT) of the head was performed without intravenous contrast. Sagittal and coronal reconstructions were performed. The mA was adjusted according to patient size. Iterative reconstruction technique was employed. The dose-length product was 529.67 mGy-cm. COMPARISON: head CT dated 03/08/21 FINDINGS: No fracture. No acute intracranial hemorrhage, acute infarction or abnormal extra axial fluid collect ion. There is mild scattered white matter hypoattenuation consistent with chronic small vessel ischem ic disease. Ventricles are normal and symmetric. No mass/mass effect. Chronic left otomastoiditis ef fusion. The orbits, paranasal sinuses and right mastoid air cells are normal. IMPRESSION: 1. No fracture or acute intracranial process. 2. Mild scattered white matter hypoattenuation consistent with chronic small vessel ischemic disease. 3. Chronic left otomastoiditis effusion. Reviewed, dictated and finalized at location B. IMPRESSION: 1. No fracture or acute intracranial process. 2. Mild scattered white matter hypoattenuation consistent with chronic small ve ssel ischemic disease. 3. Chronic left otomastoiditis effusion.
--- NOTE | ~2023-12-26 | CT_ITS ---
EXAMINATION: CT chest abdomen pelvis w con DATE: 12/26/2023 14:45 INDICATION: Left anterior chest and upper abdominal pain. TECHNIQUE: Computed tomography (CT) of the chest, abdomen, and pelvis was performed with 100 mL Omnip aque 350 intravenous contrast. Automated exposure control and iterative reconstruction technique were employed. The dose-length product was 1294.56 mGy-cm. COMPARISON: CT abdomen and pelvis 10/10/2023 FINDINGS: CHEST CT: There is mild atelectasis bilaterally. A calcified right lung nodule and calcified right hilar lymph nodes are consistent with old granulomatous disease. There is a trace right pleural effusion. The hea rt size is normal. No pericardial effusion. There is mild thoracic spondylosis. There is a hemangioma in T8 vertebral body. There is an old healed fracture proximal left humerus. There are healing fract ures of left fourth-ninth ribs. ABDOMEN/PELVIS CT: There is a 4.7 cm mass in the caudate of the liver with interrupted peripheral puddling of contrast, consistent with a hemangioma. There are changes of cholecystectomy. Calcifications in the liver and s pleen are consistent with old granulomatous disease. The pancreas and adrenal glands are normal. Ther e is a 3.0 cm cyst in right kidney. There is a 10 mm cyst with calcifications in left kidney. The berta dder is distended. There is chronic pelvic lipomatosis with mass effect on the bladder. There are no dilated loops of bowel. The appendix is not visualized. There are changes of fundoplication of the st ach. There are no pathologically enlarged lymph nodes. There is no free intraperitoneal fluid. Ther e is severe lower lumbar spondylosis. IMPRESSION: 1. Healing fractures of left fourth-ninth ribs, new from 10/10/2023. Reviewed, dictated and finalized at location A.
--- NOTE | 2023-12-26 13:04 | ECG_ITS ---
Test Date: 2023-12-26 13:24:44 Measurements Intervals [place] Rate: 87 P: 43 MA: 192 QRS: 12 QRSD: 84 T: 15 QT: 367 QTc: 442 Interpretive Statements SINUS RHYTHM LOW QRS VOLTAGE INCOMPLETE RIGHT BUNDLE BRANCH BLOCK ABNORMAL ECG Compared to ECG 12/08/2023 11:33:45 NO DIFFERENCE Electronically Signed On 12-26-2023 16:01:57 CDT by Micah Linda M.D.
--- NOTE | 2023-12-26 13:22 | ED.SOB ---
HPI - SOB/Dyspnea General Chief Complaint: Shortness of Breath/Dyspnea <VIVIENNE Lane Last Filed: 12/26/23 13:37> Stated Complaint: SOB <VIVIENNE Lane Last Filed: 12/26/23 13:37> Time Seen by Provider: 12/26/23 13:07 <VIVIENNE Lane Last Filed: 12/26/23 13:37> Focused HPI: Patient is a 68-year-old female, with PMH of GERD, who presents to the ED with c/o L sided chest and rib pain. Patient reports she underwent hiatal hernia repair with Leonor fundoplication on 12/[address] Fu. She states prior to the surgery, she tripped and fell in the hospital, hitting her head against the ground. Sustained bruising to chin. Denied LOC. States she had imaging performed of her L shoulder at that time, but did not receive imaging of her head. Since then, she c/o pain to her L sided ribs, L lateral/anterior chest wall. Pain is worse with movement, taking deep breaths. She does report feeling increasingly short of breath over the weekend, which prompted her presentation. She is not on any blood thinners. Denies neck or back pain. GENERAL: Elderly, obese with BMI of 34.1, and in no acute distress. HEAD: Normocephalic, atraumatic. CHEST: Clear to auscultation. ?No respiratory distress. Lung sounds are equal bilaterally. HEART: Regular rate and rhythm.? MSK: Diffuse tenderness along L anterolateral chest wall /lower ribcage, tenderness throughout right anterior chest wall. NEURO: ?Alert and oriented x3. Patient screened in triage and initial orders placed.? ?Additional care and disposition to be based upon?diagnostic testing and treatment. <VIVIENNE Lane Last Filed: 12/26/23 13:37> Source: patient <VIVIENNE Lane Last Filed: 12/26/23 13:37> Mode of arrival: ambulatory <VIVIENNE Lane Last Filed: 12/26/23 13:37> Limitations: no limitations <Elizabeth Palomo PA-C - Last Filed: 12/26/23 13:37> History of Present Illness HPI Narrative: Agree with the above note. Denies vision changes, focal numbness or weakness. Denies neck pain or other injuries acquired. She reports a bruise to her chin from the fall, otherwise no other injuries beyond the left rib pain. denies abdominal pain or fever, cough or congestion. <Viola Milan PA-C - Last Filed: 12/26/23 18:34> Related Data Home Medications: Home Medications Medication Instructions Recorded Confirmed aspirin 81 mg tablet,delayed 81 mg PO DAILY 06/20/19 12/14/23 release (Adult Low Dose Aspirin) bupropion HCl 150 mg 24 hr tablet, 150 mg PO QAM 06/20/19 12/14/23 extended release hydroxychloroquine 200 mg tablet 200 mg PO BID 06/20/19 12/14/23 montelukast 10 mg tablet 10 mg PO QHS 06/20/19 12/15/23 potassium chloride 10 mEq 10 meq PO DAILY 06/20/19 12/14/23 tablet,extended release pravastatin 40 mg tablet 40 mg PO DAILY 06/20/19 12/14/23 folic acid 1 mg tablet 2 mg PO DAILY 06/21/19 12/14/23 duloxetine 60 mg capsule,delayed 60 mg PO DAILY 08/20/19 12/14/23 release calcium carb-ergocalciferol (vit 1 tablet PO BID 03/08/21 12/14/23 D2) 600 mg calcium-200 unit tablet cholecalciferol (vitamin D3) 125 125 mcg PO DAILY 03/08/21 12/14/23 mcg (5,000 unit) tablet (Vitamin D3) cyclobenzaprine 5 mg tablet 5 mg PO TID PRN Muscle spasms 03/08/21 12/14/23 docusate sodium 100 mg capsule 200 mg PO BID 03/08/21 12/14/23 (Colace) ropinirole 0.5 mg tablet 1 mg PO HS 07/14/21 12/14/23 abatacept 125 mg/mL subcutaneous 125 mg subcut WEEKLY 07/22/23 12/05/23 syringe (Orencia) bumetanide 1 mg tablet 1 mg PO BID 07/22/23 12/14/23 clobetasol 0.05 % lotion (Clobex) 1 applic topical BID PRN Itching 07/22/23 12/14/23 gabapentin 100 mg capsule 200 mg PO BID 07/22/23 12/14/23 tramadol 50 mg tablet 50 mg PO Q6H PRN Pain 07/22/23 12/14/23 methotrexate sodium 2.5 mg tablet 17.5 mg PO WEEKLY 12/05/23 12/14/23 <Elizabeth Palomo PA-C - Last Filed: 12/26/23 13:
[2023-12-26 14:05] LABS: Basophils Percent Auto 0.6 % (0.2-1.2); Eosinophils Absolute Auto 0.1 K/mm3 (0-0.3); Eosinophils Percent Auto 1.5 % (0-4.4); Hematocrit 40.6 % (37.0-47.0); Hemoglobin 13.2 g/dL (12.0-15.0); Immature Granulocyte Absolute 0.01 K/mm3 (0.00-0.031); Immature Granulocyte Percent A 0.2 % (0-0.5); Lymphocytes Percent Auto 15.4 % (18.3-44.2); Mean Corpuscular HGB Conc 32.5 g/dl (32-36); Mean Corpuscular Hemoglobin 32.5 pg (26-34); Mean Platelet Volume 9.6 fl (7.4-10.4); Monocytes Absolute Auto 0.4 K/mm3 (0.1-0.6); Monocytes Percent Auto 7.9 % (2.6-8.5); Neutrophils Absolute Auto 3.9 K/mm3 (1.3-6.7); Neutrophils Percent Auto 74.4 % (45.5-73.1); Platelet Count Result 279 k/mm3 (150-375); Red Blood Count 4.06 M/mm3 (4.2-5.4); Red Cell Distribution Width 14.8 % (11.5-14.5); White Blood Count 5.2 K/mm3 (4.5-10.0)
[2023-12-26 14:19] LABS: Alanine Aminotransferase 24 U/L (6-35); Albumin Level 4.1 g/dL (3.5-5.1); Alkaline Phosphatase 152 U/L (38-126); Anion Gap 7 mmol/L (4-12); Aspartate Amino Transferase 38 U/L (14-36); Bilirubin,Total 0.6 mg/dL (0.2-1.3); Blood Urea Nitrogen 26 mg/dL (7-17); Calcium 9.3 mg/dL (8.4-10.2); Carbon Dioxide 21 mmol/L (22-30); Chloride 111 mmol/L (98-107); Estimated CRCL calculation 72 ml/min; Estimated Glomerular Filt Rate > 60; Glucose 88 mg/dL (65-110); Potassium 4.1 mmol/L (3.4-5.0); Sodium 139 mmol/L (137-145)
[2023-12-26 14:30] LABS: Troponin I < 0.012 ng/mL (0.000-0.034)
[2023-12-26] MEDS: LIDOCAINE 5% PATCH 1 PATCH TRANSDERM (18:46)
[2023-12-26] MEDS: oxyCODONE/ACETAMINOPHEN (*CRX) 5-325 MG TABLET 1 TABLET PO (18:47)
== END 2023-12-26 18:56 | disposition home or self-care (01) ==
PROVIDERS: Physician Assistant; Emergency Provider Physician Assistant; PCP Physician Assistant
DX: S22.42XA Multiple fractures of ribs, left side, initial encounter for closed fracture (principal); S09.90XA Unspecified injury of head, initial encounter; I10 Essential (primary) hypertension; I25.10 Atherosclerotic heart disease of native coronary artery without angina pectoris; J45.40 Moderate persistent asthma, uncomplicated; E78.5 Hyperlipidemia, unspecified; E66.9 Obesity, unspecified; Z68.34 Body mass index [BMI] 34.0-34.9, adult; G47.33 Obstructive sleep apnea (adult) (pediatric); K21.9 Gastro-esophageal reflux disease without esophagitis; M19.90 Unspecified osteoarthritis, unspecified site; Z96.652 Presence of left artificial knee joint; Z87.442 Personal history of urinary calculi; Z90.49 Acquired absence of other specified parts of digestive tract; W01.0XXA Fall on same level from slipping, tripping and stumbling without subsequent striking against object, initial encounter
CPT/HCPCS: 36415; 70450; 71260; 74177; 80053; 84484; 85025; 93005; 99284; A9270; Q9967

== ENCOUNTER 2024-02-18 08:12 | Emergency (ER) | payer OTHER, SELFPAY ==
[2024-02-18 08:24] VITALS: BP 107/60; PULSE 84; RESP 20; TEMP 36.6; O2SAT 95
[2024-02-18] MEDS: LIDOCAINE HCL 1% LOCAL INJ 2 ML AMPUL INFILTRATE (08:40)
--- NOTE | 2024-02-18 08:59 | ED.SKABFB ---
HPI - Skin/Abscess/Foreign Bdy General Chief complaint: Skin/Abscess/Foreign Body Stated complaint: piece of glass in right foot Time Seen by Provider: 02/18/24 08:30 Source: patient and RN notes reviewed Mode of arrival: ambulatory Limitations: no limitations History of Present Illness HPI narrative: Patient presents today reporting foreign body to the plantar aspect of her right foot, in the heel. She broke a mere early this morning and a piece of the glass is imbedded. She is up-to-date on her tetanus vaccine. Related Data Home Medications Medication Instructions Recorded Confirmed aspirin 81 mg tablet,delayed 81 mg PO DAILY 06/20/19 02/18/24 release (Adult Low Dose Aspirin) bupropion HCl 150 mg 24 hr tablet, 150 mg PO QAM 06/20/19 02/18/24 extended release hydroxychloroquine 200 mg tablet 200 mg PO BID 06/20/19 02/18/24 montelukast 10 mg tablet 10 mg PO QHS 06/20/19 02/18/24 potassium chloride 10 mEq 10 meq PO DAILY 06/20/19 02/18/24 tablet,extended release pravastatin 40 mg tablet 40 mg PO DAILY 06/20/19 02/18/24 folic acid 1 mg tablet 2 mg PO DAILY 06/21/19 02/18/24 duloxetine 60 mg capsule,delayed 60 mg PO DAILY 08/20/19 02/18/24 release calcium carb-ergocalciferol (vit 1 tablet PO BID 03/08/21 02/18/24 D2) 600 mg calcium-200 unit tablet cholecalciferol (vitamin D3) 125 125 mcg PO DAILY 03/08/21 02/18/24 mcg (5,000 unit) tablet (Vitamin D3) cyclobenzaprine 5 mg tablet 5 mg PO TID PRN Muscle spasms 03/08/21 02/18/24 docusate sodium 100 mg capsule 200 mg PO BID 03/08/21 02/18/24 (Colace) ropinirole 0.5 mg tablet 1 mg PO HS 07/14/21 02/18/24 abatacept 125 mg/mL subcutaneous 125 mg subcut WEEKLY 07/22/23 02/18/24 syringe (Orencia) bumetanide 1 mg tablet 1 mg PO BID 07/22/23 02/18/24 clobetasol 0.05 % lotion (Clobex) 1 applic topical BID PRN Itching 07/22/23 02/18/24 gabapentin 100 mg capsule 200 mg PO BID 07/22/23 02/18/24 tramadol 50 mg tablet 50 mg PO Q6H PRN Pain 07/22/23 02/18/24 methotrexate sodium 2.5 mg tablet 17.5 mg PO WEEKLY 12/05/23 02/18/24 Allergies Allergy/AdvReac Type Severity Reaction Status Date / Time meperidine Allergy Severe HIVES Verified 01/19/24 08:38 Penicillins Allergy Severe RASH Verified 01/19/24 08:38 hydrocodone Allergy Intermediate HIVES Verified 01/19/24 08:38 Review of Systems Review of Systems: CONSTITUTIONAL: Denies body aches, fever, chills, or sweats. EYES: Denies visual changes, redness, or discharge. ENT: Denies rhinorrhea, congestion, sore throat, or otalgia. CARDIOVASCULAR: Denies chest pain, palpitations, or edema. RESPIRATORY: Denies cough or dyspnea. GASTROINTESTINAL: Denies abdominal pain, nausea, vomiting, or diarrhea. GENITOURINARY: Denies dysuria or hematuria. SKIN: + embedded foreign body MUSCULOSKELETAL: Denies back pain, joint pain, or myalgia. NEUROLOGIC: Denies headache, numbness, tingling, or weakness. PSYCH: Denies depression or anxiety. [facility] Past Medical History Medical History Angina of effort Arthritis Asthma CAD (coronary atherosclerotic disease) Depression GERD (gastroesophageal reflux disease) H/O: HTN (hypertension) Hyperlipidemia Kidney stones Moderate persistent asthma without complication Obese Obstructive sleep apnea (adult) (pediatric) OWEN (obstructive sleep apnea) Rhinitis Surgical History Surgical History History of cholecystectomy History of left knee replacement History of repair of hiatal hernia Laparoscopic repair hiatal hernia, laparoscopic Leonor fundoplication 12/14/23 S/P appy Family History Family History Mother Chronic HF (heart failure) Family history of diabetes mellitus in first degree relative Cerebrovascular accident Father Family history of malignant neoplasm of kidney Family history of liver disease
== END 2024-02-18 09:08 | disposition home or self-care (01) ==
PROVIDERS: Emergency Provider Nurse Practitioner; PCP Physician Assistant
DX: S90.851A Superficial foreign body, right foot, initial encounter (principal); W25.XXXA Contact with sharp glass, initial encounter; J45.909 Unspecified asthma, uncomplicated; I25.10 Atherosclerotic heart disease of native coronary artery without angina pectoris; K21.9 Gastro-esophageal reflux disease without esophagitis; I10 Essential (primary) hypertension; E78.5 Hyperlipidemia, unspecified; E66.9 Obesity, unspecified; Z68.36 Body mass index [BMI] 36.0-36.9, adult; Z96.652 Presence of left artificial knee joint; M19.90 Unspecified osteoarthritis, unspecified site; Z79.82 Long term (current) use of aspirin
CPT/HCPCS: 10120; 99212; G0463

== ENCOUNTER 2024-08-29 17:55 | Emergency (ER) | payer OTHER, SELFPAY ==
--- NOTE | 2024-08-29 18:12 | ED.FEMALEGU ---
HPI - Female Genitourinary General Chief complaint: Urogenital-Female <Stacie Oliva PA-C - Last Filed: 08/30/24 10:39> Stated complaint: I can't pee <Stacie Oliva PA-C - Last Filed: 08/30/24 10:39> Time Seen by Provider: 08/29/24 18:12 <Stacie Oliva PA-C - Last Filed: 08/30/24 10:39> Focused HPI: This is a 69 year old female that presents to the ER for right lower quadrant pain. Ongoing since this morning. Reports it feels like she pulled a muscle. Reports she has had kidney stones before. Reports the last time she urinated was 11 this morning. Reports she is nauseous. Denies fever, vomiting, hematuria. GENERAL: Well-appearing, well-nourished, and in no acute distress. HEAD: Normocephalic, atraumatic. CHEST: Clear to auscultation. ?No respiratory distress. HEART: Regular rate and rhythm.? NEURO: ?Alert and oriented x3. Patient screened in triage and initial orders placed.? ?Additional care and disposition to be based upon?diagnostic testing and treatment. <Stacie Oliva PA-C - Last Filed: 08/30/24 10:39> Source: patient <Michael Garrido PA-C - Last Filed: 08/30/24 04:31> Mode of arrival: ambulatory <VIVIENNE Morales Last Filed: 08/30/24 04:31> Limitations: no limitations <VIVIENNE Morales Last Filed: 08/30/24 04:31> History of Present Illness HPI Narrative: This is a 69-year-old female who presents to the ED for chief complaint of right lower quadrant abdominal pain. Patient states this pain started around 11:00 a.m.. States this was associated with urinary retention. States that she had a normal urination this morning shortly after waking up, however around 11:00 a.m. is when all of her symptoms began. She feels that she may have pulled a muscle in her groin initially but is unsure. She reports pain that radiates from the suprapubic abdomen to the bilateral sides of the lower abdomen and is worse on the right. Triage note mentions right leg pain, however she denies any radicular-type pain. Denies back pain. Denies numbness or weakness of the extremities. Denies bowel or bladder incontinence. Endorses nausea but no vomiting. Denies Fevers, chills, chest pain, shortness of breath. Endorses surgical history of hysterectomy and appendectomy. Patient was bladder scanned in triage [place] and it appears that she was retaining around 250 mL of urine. <Michael Garrido PA-C - Last Filed: 08/30/24 04:31> Related Data Home medications: Home Medications ?Medication ?Instructions ?Recorded ?Confirmed ?Last Taken ?Type aspirin 81 mg tablet,delayed 81 mg PO DAILY 06/20/19 02/29/24 12/11/23 History release (Adult Low Dose Aspirin) bupropion HCl 150 mg 24 hr tablet, 150 mg PO QAM 06/20/19 02/29/24 12/14/23 History extended release hydroxychloroquine 200 mg tablet 200 mg PO BID 06/20/19 02/29/24 12/13/23 20:00 History montelukast 10 mg tablet 10 mg PO QHS 06/20/19 02/29/24 12/08/23 History potassium chloride 10 mEq 10 meq PO DAILY 06/20/19 02/29/24 12/13/23 History tablet,extended release pravastatin 40 mg tablet 40 mg PO DAILY 06/20/19 02/29/24 12/13/23 20:00 History folic acid 1 mg tablet 2 mg PO DAILY 06/21/19 02/29/24 12/13/23 History duloxetine 60 mg capsule,delayed 60 mg PO DAILY 08/20/19 02/29/24 12/14/23 History release calcium carb-ergocalciferol (vit 1 tablet PO BID 03/08/21 02/29/24 12/08/23 History D2) 600 mg calcium-200 unit tablet cholecalciferol (vitamin D3) 125 125 mcg PO DAILY 03/08/21 02/29/24 12/08/23 History mcg (5,000 unit) tablet (Vitamin D3) cyclobenzaprine 5 mg tablet 5 mg PO TID PRN Muscle spasms 03/08/21 02/29/24 12/08/23 History docusate sodium 100 mg capsule 200 mg PO BID 03/08/21 02/29/24 12/08/23 History (Colace) ropinirole 0.5 mg tablet 1 mg PO HS 07/14/21 02/29/24 12/13/23 20:00 History abatacept 125 mg/mL subcutaneous 125 mg subcut WEEKLY 07/22/23 02/29/24 Unknown History syringe (Orencia) bumetanide 1 mg tablet 1 mg PO BID 07/22/23 02/29/24 12/13/23 History clobetasol 0.05 % lotion (Clobex) 1 applic topical BID PRN Itching 07/22/23 02/29/24 12/03/23 History gabapentin 100 mg capsule 200 mg PO BID 07/22/23 02/29/24 12/13/23 20:00 History tramadol 50 mg tablet 50 mg PO Q6H PRN Pain 07/22/23 02/29/24 12/08/23 History methotrexate sodium 2.5 mg tablet 17.5 mg PO WEEKLY 12/05/23 02/29/24 12/07/23 History <Stacie Oliva PA-C - Last Filed: 08/30/24 10:39> Allergies/Adverse reactions: Allergies Allergy/AdvReac Type Severity Reaction Status Date / Time meperidine Allergy Severe HIVES Verified 02/27/24 08:49 Penicillins Allergy Severe RASH Verified 02/27/24 08:49 hydrocodone Allergy Intermediate HIVES Verified 02/27/24 08:49 <Stacie Oliva PA-C - Last Filed: 08/30/24 10:39> Review of Systems Review of Systems: All systems as dictated in HPI <Michael Garrido PA-C - Last Filed: 08/30/24 04:31> [facility] Past Medical History Medical History: Medical History Angina of effort Arthritis Asthma CAD (coronary atherosclerotic disease) Depression GERD (gastroesophageal reflux disease) H/O: HTN (hypertension) Hyperlipidemia Kidney stones Moderate persistent asthma without complication Obese Obstructive sleep apnea (adult) (pediatric) OWEN (obstructive sleep apnea) Rhinitis <VIVIENNE Alves Last Filed: 08/30/24 10:39> Surgical History Surgical History: Surgical History History of cholecystectomy History of left knee replacement History of repair of hiatal hernia Laparoscopic repair hiatal hernia, laparoscopic Leonor fundoplication 12/14/23 S/P appy <Stacie Oliva PA-C - Last Filed: 08/30/24 10:39> Family History Family History: Family History Mother Chronic HF (heart failure) Family history of diabetes mellitus in first degree relative Cerebrovascular accident Father Family history of malignant neoplasm of kidney Family history of liver disease Carcinoma of colon Atrial fibrillation Other Acute myocardial infarction Asthma Diabetes mellitus Family history of arthritis Family history of cardiovascular disease Family history of chronic obstructive pulmonary disease Family history of congestive heart failure Hypertension Malignant neoplasm of prostate <Stacie Oliva PA-C - Last Filed: 08/30/24 10:39> Social History Social History: Social History Smoking status: Never smoker Alcohol intake: never Substance use: never Substance use type: does not use Do You Feel Safe in your Home?: Yes Lack of Transportation: No Lack of Food: Never True Current Housing: I Have Housing Concerned About Future Housing: No Difficulty Paying Gas/Electric Bills: No Difficulty Paying for Meds: No Currently Unemployed: No Education: High School Diploma/GED Difficulty w/ Childcare or Family Care: No Living arrangements: alone Spiritual care concerns: No <Stacie Oliva PA-C - Last Filed: 08/30/24 10:39> Exam Narrative: GENERAL: Well-appearing, well-nourished, and in no acute distress. HEAD: Normocephalic, atraumatic. EYES: PERRLA and EOMI. ENT: Nares clear, no rhinorrhea or epistaxis. Mucous membranes moist. Oropharynx without tonsillar hypertrophy exudate or other lesions. NECK: Supple. No adenopathy or masses. CHEST: No respiratory distress. Clear to auscultation. No wheezes rales or rhonchi HEART: Regular rate and rhythm. No murmur heard. Normal peripheral pulses. ABDOMEN: Tenderness along the lower abdomen, worse in the right lower quadrant. Soft, nondistended, normal active bowel sounds. MSK: Normal range of motion. No edema. Negative straight leg raise bilaterally. SKIN: Warm, dry, no rash. NEURO: Alert and oriented x4. No focal deficits. No saddle anesthesia. 5/5 strength and sensation to the upper and lower extremities. PSYCH: Normal mood and affect. <Michael Garrido PA-C - Last Filed: 08/30/24 04:31> Course [employer]/PA Physician Supervision Patient's HPI, Exam, and MDM were reviewed and I agreed with the workup and disposition done in the emergency department by the MLP. I was available for consultation, but was not directly involved with patient's care nor did I evaluate the patient. <Humberto Pearl MD - Last Filed: 08/30/24 07:22> Vital Signs Vital signs: Vital Signs Temperature 97.8 F 08/29/24 18:27 Pulse Rate 98 08/29/24 18:27 Respiratory Rate 18 08/29/24 18:27 Blood Pressure 144/73 H 08/29/24 18:27 Pulse Oximetry 95 08/29/24 18:27 Oxygen Delivery Room Air 08/29/24 18:27 Temperature 98.2 F 08/30/24 03:33 Pulse Rate 82 08/30/24 03:33 Respiratory Rate 14 08/30/24 03:33 Blood Pressure 105/57 L 08/30/24 03:33 Pulse Oximetry 96 08/30/24 03:33 Oxygen Delivery Room Air 08/29/24 22:48 <Stacie Oliva PA-C - Last Filed: 08/30/24 10:39> Vital Signs Temperature 97.8 F 08/29/24 18:27 Pulse Rate 98 08/29/24 18:27 Respiratory Rate 18 08/29/24 18:27 Blood Pressure 144/73 H 08/29/24 18:27 Pulse Oximetry 95 08/29/24 18:27 Oxygen Delivery Room Air 08/29/24 18:27 Temperature 98.2 F 08/30/24 03:33 Pulse Rate 82 08/30/24 03:33 Respiratory Rate 14 08/30/24 03:33 Blood Pressure 105/57 L 08/30/24 03:33 Pulse Oximetry 96 08/30/24 03:33 Oxygen Delivery Room Air 08/29/24 22:48 <Michael Garrido PA-C - Last Filed: 08/30/24 04:31> Vital Signs Temperature 97.8 F 08/29/24 18:27 Pulse Rate 98 08/29/24 18:27 Respiratory Rate 18 08/29/24 18:27 Blood Pressure 144/73 H 08/29/24 18:27 Pulse Oximetry 95 08/29/24 18:27 Oxygen Delivery Room Air 08/29/24 18:27 Temperature 98.2 F 08/30/24 03:33 Pulse Rate 82 08/30/24 03:33 Respiratory Rate 14 08/30/24 03:33 Blood Pressure 105/57 L 08/30/24 03:33 Pulse Oximetry 96 08/30/24 03:33 Oxygen Delivery Room Air 08/29/24 22:48 <Humberto Pearl MD - Last Filed: 08/30/24 07:22> MDM - Female Genitourinary MDM Narrative Medical decision making narrative: This is a 69-year-old female who presents to the ED for chief complaint of abdominal pain with urinary retention. Vitals are normal. Exam remarkable for lower abdominal tenderness. On arrival she had a bladder scan showing retained urine of 250 mL. Lab work shows normal white count CBC. CMP revealing of slightly low bicarb CT abdomen pelvis with IV contrast: Stat rad Impression: There is a 5 cm mass that extends from the IVC. This is concerning for malignancy. Recommend further evaluation PT/CT. The remaining solid organs are within normal limits. No bowel obstruction. Abnormal appearance of the bladder most likely represents pelvic lipomatosis. There is thickening of the wall of the bladder with surrounding inflammatory stranding concerning for cystitis. No fracture. After L of fluids were given, patient is retaining over 500 mL of urine again. A Lyles catheter was placed. On re-evaluation patient is feeling much better. Her pain is relieved since the bladder as been drained. I discussed the above findings with the patient. We discussed disposition and had shared decision making regarding discharge verses admission to the hospital. As her pain is controlled, she feels comfortable going home and following up with her PCP regarding the findings of possible mass on the CT scan. I explained that I do think that her abdominal pain will be resolved now that she is able to drain the urine. She states that she will follow-up with PCP and Urology. I did prescribed cephalexin for possible cystitis seen on the CT scan and trace leuks on the UA. Patient will be discharged in stable condition. Supportive measures discussed and return precautions given. Patient is understanding and agreeable with plan for discharge with PCP follow-up. <Stacie Oliva PA-C - Last Filed: 08/30/24 10:39> This is a 69-year-old female who presents to the ED for chief complaint of abdominal pain with urinary retention. Vitals are normal. Exam remarkable for lower abdominal tenderness. On arrival she had a bladder scan showing retained urine of 250 mL. Lab work shows normal white count CBC. CMP revealing of slightly low bicarb CT abdomen pelvis with IV contrast: Stat rad Impression: There is a 5 cm mass that makes sent from the IVC. This is concerning for malignancy. Recommend further evaluation PT/CT. The remaining solid organs are within normal limits. No bowel obstruction. Abnormal appearance of the bladder most likely represents pelvic lipomatosis. There is thickening of the wall of the bladder with surrounding inflammatory stranding concerning for cystitis. No fracture. After L of fluids were given, patient is retaining over 500 mL of urine again. A Lyles catheter was placed. On re-evaluation patient is feeling much better. Her pain is relieved since the bladder as been drained. I discussed the above findings with the patient. We discussed disposition and had shared decision making regarding discharge verses admission to the hospital. As her pain is controlled, she feels comfortable going home and following up with her PCP regarding the findings of possible mass on the CT scan. I explained that I do think that her abdominal pain will be resolved now that she is able to drain the urine. She states that she will follow-up with PCP and Urology. I did prescribed cephalexin for possible cystitis seen on the CT scan and trace leuks on the UA. Patient will be discharged in stable condition. Supportive measures discussed and return precautions given. Patient is understanding and agreeable with plan for discharge with PCP follow-up. <Michael Garrido PA-C - Last Filed: 08/30/24 04:31> Lab Data Result diagrams: 08/29/24 22:52 08/29/24 22:52 <Stacie Oliva PA-C - Last Filed: 08/30/24 10:39> Labs: Lab Results 08/29/24 08/29/24 Range/Units 22:52 23:04 WBC 4.9 (4.5-10.0) K/mm3 RBC 4.45 (4.2-5.4) M/mm3 Hgb 14.2 (12.0-15.0) g/dL Hct 42.9 (37.0-47.0) % MCV 96.4 (80-100) fl MCH 31.9 (26-34) pg MCHC 33.1 (32-36) g/dl RDW 14.6 H (11.5-14.5) % Plt Count 212 (150-375) k/mm3 MPV 9.4 (7.4-10.4) fl Immature Gran % (Auto) 0.4 (0-0.5) % Neut % (Auto) 84.7 H (45.5-73.1) % Lymph % (Auto) 9.4 L (18.3-44.2) % Coles % (Auto) 5.3 (2.6-8.5) % Eos % (Auto) 0.0 (0-4.4) % Baso % (Auto) 0.2 (0.2-1.2) % Lymph # (Auto) 0.46 L (0.9-3.2) K/mm3 Coles # (Auto) 0.3 (0.1-0.6) K/mm3 Eos # (Auto) 0.0 (0-0.3) K/mm3 Baso # (Auto) 0.0 (0.0-0.1) K/mm3 Abs Immat Gran (auto) 0.02 (0.00-0.031) K/mm3 Absolute Neuts (auto) 4.1 (1.3-6.7) K/mm3 Absolute Nucleated RBC 0.000 (0.0-0.012) K/mm3 Nucleated RBC % 0.0 (0.0-0.2) % Sodium 141 (137-145) mmol/L Potassium 4.1 (3.4-5.0) mmol/L Chloride 110 H (98-107) mmol/L Carbon Dioxide 18 L (22-30) mmol/L Anion Gap 13 H (4-12) mmol/L BUN 24 H (7-17) mg/dL Creatinine 0.57 L (0.7-1.0) mg/dL Estim Creat Clear Calc 79 ml/min Estimated GFR > 60 (59 - ) Glucose 149 H (65-110) mg/dL Calcium 9.8 (8.4-10.2) mg/dL Total Bilirubin 0.7 (0.2-1.3) mg/dL AST 30 (14-36) U/L ALT 23 (6-35) U/L Alkaline Phosphatase 131 H (38-126) U/L Total Protein 8.0 (6.3-8.2) g/dL Albumin 4.3 (3.5-5.1) g/dL Lipase 19 L (23-300) U/L Urine Color Dark yellow (Yellow) Urine Appearance Cloudy H (Clear) Urine pH 5.0 (5.0-9.0) Ur Specific [place] 1.026 (1.001-1.035) Urine Protein Trace (Negative) mg/dL Urine Glucose (UA) Negative (Negative) mg/dL Urine Ketones Trace H (Negative) mg/dL Ur Blood (Man) Negative (Negative) Urine Nitrate Negative (Negative) Urine Bilirubin Negative (Negative) Urine Urobilinogen 1.0 (<2.0) mg/dL Add Ur Microanalysis Reviewed Leukocyte Esterase Rfl Trace H (Negative) JACQUELYN/UL Urine RBC 0-2 (0-2) /hpf Urine WBC 0-5 (0-3) /hpf Ur Squamous Epith Cells Few (Few) /hpf Urine Bacteria Rare /hpf Urine Casts 3-5 <Stacie Oliva PA-C - Last Filed: 08/30/24 10:39> Lab Results 08/29/24 08/29/24 Range/Units 22:52 23:04 WBC 4.9 (4.5-10.0) K/mm3 RBC 4.45 (4.2-5.4) M/mm3 Hgb 14.2 (12.0-15.0) g/dL Hct 42.9 (37.0-47.0) % MCV 96.4 (80-100) fl MCH 31.9 (26-34) pg MCHC 33.1 (32-36) g/dl RDW 14.6 H (11.5-14.5) % Plt Count 212 (150-375) k/mm3 MPV 9.4 (7.4-10.4) fl Immature Gran % (Auto) 0.4 (0-0.5) % Neut % (Auto) 84.7 H (45.5-73.1) % Lymph % (Auto) 9.4 L (18.3-44.2) % Coles % (Auto) 5.3 (2.6-8.5) % Eos % (Auto) 0.0 (0-4.4) % Baso % (Auto) 0.2 (0.2-1.2) % Lymph # (Auto) 0.46 L (0.9-3.2) K/mm3 [place] # (Auto) 0.3 (0.1-0.6) K/mm3 Eos # (Auto) 0.0 (0-0.3) K/mm3 Baso # (Auto) 0.0 (0.0-0.1) K/mm3 Abs Immat Gran (auto) 0.02 (0.00-0.031) K/mm3 Absolute Neuts (auto) 4.1 (1.3-6.7) K/mm3 Absolute Nucleated RBC 0.000 (0.0-0.012) K/mm3 Nucleated RBC % 0.0 (0.0-0.2) % Sodium 141 (137-145) mmol/L Potassium 4.1 (3.4-5.0) mmol/L Chloride 110 H (98-107) mmol/L Carbon Dioxide 18 L (22-30) mmol/L Anion Gap 13 H (4-12) mmol/L BUN 24 H (7-17) mg/dL Creatinine 0.57 L (0.7-1.0) mg/dL Estim Creat Clear Calc 79 ml/min Estimated GFR > 60 (59 - ) Glucose 149 H (65-110) mg/dL Calcium 9.8 (8.4-10.2) mg/dL Total Bilirubin 0.7 (0.2-1.3) mg/dL AST 30 (14-36) U/L ALT 23 (6-35) U/L Alkaline Phosphatase 131 H (38-126) U/L Total Protein 8.0 (6.3-8.2) g/dL Albumin 4.3 (3.5-5.1) g/dL Lipase 19 L (23-300) U/L Urine Color Dark yellow (Yellow) Urine Appearance Cloudy H (Clear) Urine pH 5.0 (5.0-9.0) Ur Specific [place] 1.026 (1.001-1.035) Urine Protein Trace (Negative) mg/dL Urine Glucose (UA) Negative (Negative) mg/dL Urine Ketones Trace H (Negative) mg/dL Ur Blood (Man) Negative (Negative) Urine Nitrate Negative (Negative) Urine Bilirubin Negative (Negative) Urine Urobilinogen 1.0 (<2.0) mg/dL Add Ur Microanalysis Reviewed Leukocyte Esterase Rfl Trace H (Negative) JACQUELYN/UL Urine RBC 0-2 (0-2) /hpf Urine WBC 0-5 (0-3) /hpf Ur Squamous Epith Cells Few (Few) /hpf Urine Bacteria Rare /hpf Urine Casts 3-5 <Michael Garrido PA-C - Last Filed: 08/30/24 04:31> Lab Results 08/29/24 08/29/24 Range/Units 22:52 23:04 WBC 4.9 (4.5-10.0) K/mm3 RBC 4.45 (4.2-5.4) M/mm3 Hgb 14.2 (12.0-15.0) g/dL Hct 42.9 (37.0-47.0) % MCV 96.4 (80-100) fl MCH 31.9 (26-34) pg MCHC 33.1 (32-36) g/dl RDW 14.6 H (11.5-14.5) % Plt Count 212 (150-375) k/mm3 MPV 9.4 (7.4-10.4) fl Immature Gran % (Auto) 0.4 (0-0.5) % Neut % (Auto) 84.7 H (45.5-73.1) % Lymph % (Auto) 9.4 L (18.3-44.2) % Coles % (Auto) 5.3 (2.6-8.5) % Eos % (Auto) 0.0 (0-4.4) % Baso % (Auto) 0.2 (0.2-1.2) % Lymph # (Auto) 0.46 L (0.9-3.2) K/mm3 [place] # (Auto) 0.3 (0.1-0.6) K/mm3 Eos # (Auto) 0.0 (0-0.3) K/mm3 Baso # (Auto) 0.0 (0.0-0.1) K/mm3 Abs Immat Gran (auto) 0.02 (0.00-0.031) K/mm3 Absolute Neuts (auto) 4.1 (1.3-6.7) K/mm3 Absolute Nucleated RBC 0.000 (0.0-0.012) K/mm3 Nucleated RBC % 0.0 (0.0-0.2) % Sodium 141 (137-145) mmol/L Potassium 4.1 (3.4-5.0) mmol/L Chloride 110 H (98-107) mmol/L Carbon Dioxide 18 L (22-30) mmol/L Anion Gap 13 H (4-12) mmol/L BUN 24 H (7-17) mg/dL Creatinine 0.57 L (0.7-1.0) mg/dL Estim Creat Clear Calc 79 ml/min Estimated GFR > 60 (59 - ) Glucose 149 H (65-110) mg/dL Calcium 9.8 (8.4-10.2) mg/dL Total Bilirubin 0.7 (0.2-1.3) mg/dL AST 30 (14-36) U/L ALT 23 (6-35) U/L Alkaline Phosphatase 131 H (38-126) U/L Total Protein 8.0 (6.3-8.2) g/dL Albumin 4.3 (3.5-5.1) g/dL Lipase 19 L (23-300) U/L Urine Color Dark yellow (Yellow) Urine Appearance Cloudy H (Clear) Urine pH 5.0 (5.0-9.0) Ur Specific [place] 1.026 (1.001-1.035) Urine Protein Trace (Negative) mg/dL Urine Glucose (UA) Negative (Negative) mg/dL Urine Ketones Trace H (Negative) mg/dL Ur Blood (Man) Negative (Negative) Urine Nitrate Negative (Negative) Urine Bilirubin Negative (Negative) Urine Urobilinogen 1.0 (<2.0) mg/dL Add Ur Microanalysis Reviewed Leukocyte Esterase Rfl Trace H (Negative) JACQUELYN/UL Urine RBC 0-2 (0-2) /hpf Urine WBC 0-5 (0-3) /hpf Ur Squamous Epith Cells Few (Few) /hpf Urine Bacteria Rare /hpf Urine Casts 3-5 <Humberto Pearl MD - Last Filed: 08/30/24 07:22> Imaging Data Radiologist's impression: ITS Impressions Abdomen/Pelvis CT 08/30/24 07:24 IMPRESSION: 1. Stable 4.9 cm mass involving the caudate lobe of the liver with characteristics most compatible with hemangioma. 2: Pelvic lipomatosis with chronic mass effect on the bladder. <Stacie Oliva PA-C - Last Filed: 08/30/24 10:39> Critical Care Time Critical Care Time Critical Care Time: No <Stacie Oliva PA-C - Last Filed: 08/30/24 10:39> Discharge Plan Discharge Clinical Impression: Bladder retention of urine, Abnormal CT scan, pelvis, Cystitis Abdominal pain Qualifiers: Abdominal location: unspecified location Qualified Code(s): R10.9 - Unspecified abdominal pain <Stacie Oliva PA-C - Last Filed: 08/30/24 10:39> Patient Disposition: Home, Self-Care <Stacie Oliva PA-C - Last Filed: 08/30/24 10:39> Condition: Stable <Stacie Oliva PA-C - Last Filed: 08/30/24 10:39> Instructions: Antibiotic Form, Lyles Catheter Placement and Care (ED) <Stacie Oliva PA-C - Last Filed: 08/30/24 10:39> Additional Instructions: Received in the ED today for urinary retention. This most likely due to a pelvic mass. This mass needs to be closely followed up with your primary care doctor. Continue using the Lyles catheter until otherwise directed by your doctor. Antibiotics prescribed for potential UTI as well. If you have any new or worsening symptoms please return to the ER for further evaluation. <Stacie Oliva PA-C - Last Filed: 08/30/24 10:39> Patient Language: Mexican <Stacie Oliva PA-C - Last Filed: 08/30/24 10:39> Prescriptions: New cephalexin 500 mg capsule 500 mg PO Q8H 7 Days Qty: 21 0RF No Action duloxetine 60 mg capsule,delayed release(DR/EC) 60 mg PO DAILY pravastatin 40 mg tablet 40 mg PO DAILY potassium chloride 10 mEq tablet extended release 10 meq PO DAILY montelukast 10 mg tablet 10 mg PO QHS hydroxychloroquine 200 mg tablet 200 mg PO BID bupropion HCl 150 mg tablet extended release 24 hr 150 mg PO QAM aspirin [Adult Low Dose Aspirin] 81 mg tablet,delayed release (DR/EC) 81 mg PO DAILY folic acid 1 mg tablet 2 mg PO DAILY nystatin 100,000 unit/gram powder 1 applic topical BID Qty: 60 0RF lidocaine 5 % adhesive patch,medicated 1 patch topical DAILY Qty: 15 0RF Rx Instructions: leave on most painful area for up to 12 hrs. do not use more than 1 patch in a 24-hour period. docusate sodium [Colace] 100 mg Capsule 200 mg PO BID calcium carbonate-vitamin D2 600 mg calcium- 200 unit Tablet 1 tablet PO BID cyclobenzaprine 5 mg Tablet 5 mg PO TID PRN (Reason: Muscle spasms) cholecalciferol (vitamin D3) [Vitamin D3] 125 mcg (5,000 unit) Tablet 125 mcg PO DAILY ropinirole 0.5 mg Tablet 1 mg PO HS bumetanide 1 mg tablet 1 mg PO BID gabapentin 100 mg capsule 200 mg PO BID Patient Comments: TAKES 400MG AT HS clobetasol [Clobex] 0.05 % Lotion 1 applic TOPICAL BID PRN (Reason: Itching) Rx Instructions: apply to scalp tramadol 50 mg tablet 50 mg PO Q6H PRN (Reason: Pain) Orencia 125 mg/mL Syringe 125 mg SUBCUT WEEKLY Patient Comments: methotrexate sodium 2.5 mg tablet 17.5 mg PO WEEKLY Patient Comments: TAKES ON WEDNESDAYS Linzess 290 mcg capsule See Rx Instructions .ROUTE .COMPLEX Qty: 30 11RF Dose Instruction: TAKE 1 CAPSULE BY MOUTH EVERY DAY Rx Instructions: TAKE 1 CAPSULE BY MOUTH EVERY DAY <Stacie Oliva PA-C - Last Filed: 08/30/24 10:39> Follow-up/Referrals: Mikhail,JACQUI Vickers [Primary Care Provider] - <Stacie Oliva PA-C - Last Filed: 08/30/24 10:39> Time of Disposition: 03:55 <Stacie Oliva PA-C - Last Filed: 08/30/24 10:39> 03:55 <Michael Garrido PA-C - Last Filed: 08/30/24 04:31> 03:55 <Humberto Pearl MD - Last Filed: 08/30/24 07:22>
[2024-08-29 18:27] VITALS: BP 144/73; PULSE 98; RESP 18; TEMP 36.6; O2SAT 95
--- OUTSIDE RECORDS SUMMARY | 2024-08-29 18:48 | XMS_ITS | Encounter Summary ---
Author Organization [facility] Facility Care Team Providers Care Beam Dyer Name Role Phone Alee Elizondo Primary Care Provider + [phone] Sharan Linton MD Unavailable [phone] Taisha Gomez MD Unavailable [phone] Parag Soto MD Unavailable [phone] RaziaMartha singh MD Unavailable [phone] Puneet Uribe MD Unavailable [phone] Shama Hines MD Unavailable Artis Grewal MD Unavailable [phone] Harrison Pena RN Unavailable [phone] Nafisa Gregg RN Unavailable [phone] Tho Kelsey MD Primary Care Provider [phone] Alee Elizondo Primary Care Provider + [phone] Amy Mayes NP Unavailable [phone] Shailesh Dunn MD Unavailable [phone] Sangita Farrar Unavailable [phone] Encounter Details Date Type Department Care Team (Latest Contact Info) Description 11/04/2015 Orders Only [facility] CLINCONV Provider, MD Tania [address] [place] [address] Social History Tobacco Use Types Packs/Day Years Used Date Smoking Tobacco: Never Assessed Comments Unknown Sex and Gender Information Value Date Recorded Sex Assigned at Not on file Legal Sex Female 8:04 PM MOTION GRAPHICS DESIGNER Gender Identity Female 02/15/2020 6:08 PM CDT Sexual Orientation Not on file documented as of this encounter Plan of Treatment Not on file documented as of this encounter Procedures Procedure Name Priority Date/Time Associated Diagnosis Comments SCAN - LABS 11/19/2015 12:00 AM CDT documented in this encounter Results * SCAN - LABS (11/19/2015 12:00 AM CDT) Narrative 11/19/2015 12:00 AM CDT Ordered by an unspecified provider. us Historical Provider MD Final Res ult documented in this encounter Visit Diagnoses Not on filedocumented in this encounter Additional Health Concerns Infection Onset Date Last Indicated Resolved Time COVID: Suspected 08/13/2021 08/14/2021 08/14/2021 3:06 AM MOTION GRAPHICS DESIGNER COVID: Suspected 08/14/2021 08/14/2021 08/15/2021 3:05 AM MOTION GRAPHICS DESIGNER COVID: Suspected 08/14/2021 08/14/2021 08/15/2021 6:25 AM MOTION GRAPHICS DESIGNER COVID: Suspected 06/02/2023 06/02/2023 06/02/2023 7:25 PM MOTION GRAPHICS DESIGNER COVID: Suspected 07/26/2023 07/26/2023 07/26/2023 3:10 PM MOTION GRAPHICS DESIGNER documented as of this encounter Care Teams Beam Dyer Relationship Specialty Start Date End Date Alee Elizondo PA [address] [facility] [address] [place] [address] PCP - General Internal Medicine 02/01/17 06/29/23 Tho Kelsey MD [address] [facility] [address] [place] [address] PCP - General Family Medicine 06/30/23 07/04/23 Alee Elizondo PA [address] [place] [address] PCP - General Internal Medicine 07/05/23 Sharan Linton MD [address] [place] [address] Referring Physician Gastroenterology 10/31/18 Taisha Gomez MD [address] [place] [address] Referring Physician Pulmonary Disease 10/31/18 12/23/20 Parag Soto MD [address] [place] [address] Referring Physician Rheumatology 10/31/18 12/23/20 Martha Starks MD [address] [place] [address] Consulting Physician Cardiology 12/24/20 Puneet Uribe MD [address] [facility] [[email or web address]] [address] [place] [address] Consulting Physician Rheumatology 12/24/20 01/29/21 Shama Hines MD [address] [facility] [address] [place] [address] Consulting Physician Pain Management 01/19/21 Artis Grewal MD [address] [place] [address] Consulting Physician Rheumatology 01/30/21 Harrison Pena RN [address] [place] [address] Executive Talent Acquisition Consultant 05/30/23 09/04/23 Nafisa Gregg, JULIUS [address] [place] [address] [address] [place] [address] Executive Talent Acquisition Consultant 06/06/23 06/12/23 Amy Mayes NP [address] [address] Nurse Practitioner Cardiovascular Disease 04/20/24 Shailesh Dunn MD [address] [facility] [address] [place] [address] Consulting Physician Pulmonary Disease 04/20/24 Sangita Farrar PA [address] [place] [address] Physician Log Cutter Rheumatology 05/15/24 documented as of this encounter
--- OUTSIDE RECORDS SUMMARY | 2024-08-29 18:48 | XMS_ITS | Encounter Summary ---
Author Organization [facility] Facility Care Team Providers Care Upholsterer Helper Name Role Phone Alee Elizondo Primary Care Provider + [phone] Sharan Linton MD Unavailable [phone] Taisha Gomez MD Unavailable [phone] Parag Soto MD Unavailable [phone] RaziaMartha singh MD Unavailable [phone] Puneet Uribe MD Unavailable [phone] Shama Hines MD Unavailable Artis Grewal MD Unavailable [phone] Harrison Pena RN Unavailable [phone] Nafisa Gregg RN Unavailable Tho Kelsey MD Primary Care Provider [phone] Alee Elizondo Primary Care Provider + [phone] Amy Mayes NP Unavailable [phone] Shailesh Dunn MD Unavailable [phone] Sangita Farrar Unavailable [phone] Encounter Details Date Type Department Care Team (Latest Contact Info) Description 04/19/2016 Orders Only [facility] CLINCONV Provider, MD Tania [address] [place] [address] Social History Tobacco Use Types Packs/Day Years Used Date Smoking Tobacco: Never Alcohol Use Standard Drinks/Week Comments No 0 (1 standard drink = 0.6 oz pur e alcohol) Comments Unknown Sex and Gender Information Value Date Recorded Sex Assigned at Not on file Legal Sex Female 8:04 PM CLIENT SERVICE ASSOCIATE Gender Identity Female 02/15/2020 6:08 PM CDT Sexual Orientation Not on file documented as of this encounter Plan of Treatment Not on file documented as of this encounter Procedures Procedure Name Priority Date/Time Associated Diagnosis Comments COLONOSCOPY - SCAN 04/19/2016 12 :00 AM CDT documented in this encounter Results * COLONOSCOPY - SCAN (04/19/2016 12:00 AM CDT) Narrative 04/19/2016 12:00 AM CDT Ordered by an unspecified provider. Historical Provider Final Res ult documented in this encounter Visit Diagnoses Not on filedocumented in this encounter Additional Health Concerns Infection Onset Date Last Indicated Resolved Time COVID: Suspected 08/13/2021 08/14/2021 08/14/2021 3:06 AM CLIENT SERVICE ASSOCIATE COVID: Suspected 08/14/2021 08/14/2021 08/15/2021 3:05 AM CLIENT SERVICE ASSOCIATE COVID: Suspected 08/14/2021 08/14/2021 08/15/2021 6:25 AM CLIENT SERVICE ASSOCIATE COVID: Suspected 06/02/2023 06/02/2023 06/02/2023 7:25 PM CLIENT SERVICE ASSOCIATE COVID: Suspected 07/26/2023 07/26/2023 07/26/2023 3:10 PM CLIENT SERVICE ASSOCIATE documented as of this encounter Care Teams Upholsterer Helper Relationship Specialty Start Date End Date Alee Elizondo PA [address] [facility] [address] [place] [address] PCP - General Internal Medicine 02/01/17 06/29/23 Tho Kelsey MD [address] [facility] [address] [place] [address] PCP - General Family Medicine 06/30/23 07/04/23 Alee Elizondo PA [address] [place] [address] PCP - General Internal Medicine 07/05/23 Sharan Linton MD [address] [place] [address] Referring Physician Gastroenterology 10/31/18 Taisha Gomez MD [address] [place], [place] [address] Referring Physician Pulmonary Disease 10/31/18 12/23/20 Parag Soto MD [address] [facility] [address] [place] [address] Referring Physician Rheumatology 10/31/18 12/23/20 Martha Starks MD [address] [facility] [address] [place] [address] Consulting Physician Cardiology 12/24/20 Puneet Uribe MD [address] [facility] [[email or web address]] [address] [place] [address] Consulting Physician Rheumatology 12/24/20 01/29/21 Shama Hines MD [address] [facility] [address] [place] [address] Consulting Physician Pain Management 01/19/21 Artis Grewal MD [address] [place] [address] Consulting Physician Rheumatology 01/30/21 Harrison Pena, JULIUS [address] [place] [address] Manifold Operator 05/30/23 09/04/23 Nafisa Gregg, JULIUS [address] [place] [address] [address] [place] [address] Manifold Operator 06/06/23 06/12/23 Amy Mayes NP [address] [facility] [address] [facility] [[email or web address]] [address] [place] [address] Nurse Practitioner Cardiovascular Disease 04/20/24 Shailesh Dunn MD [address] [facility] [address] [place] [address] Consulting Physician Pulmonary Disease 04/20/24 Sangita Farrar PA [address] [place] [address] Physician Maintenance Analyst Rheumatology 05/15/24 documented as of this encounter
--- OUTSIDE RECORDS SUMMARY | 2024-08-29 18:48 | XMS_ITS | Patient Health Summary ---
Author Organization [facility] Address [address] [place] [address] Care Team Providers Care Director Of Donor Relations Name Role Phone Darvin Harden MD Primary Care Provider [phone] Note from [facility],non-owned Affiliates and Associated Physician Practices is amultiple site organization consisting of ambulatory clinics and hospital sitesin [place], [place], [place] and [place]. This disclosure is being madepursuant to the Care Everywhere program and may not contain all information available regarding this patient. Last updated 18.[facility] Allergies * Meperidine(Urticaria) -Medium Criticality * Penicillins(Urticaria) -Medium Criticality Medications * Be aware that medications may not be up to date on this document. Alwaysverify current medications with the patient. * abatacept (Orencia) 125 MG/ML prefilled syringe Inject 1 (one) syringe subcutaneously * bumetanide (Bumex) 1 MG tablet(Started 04/19/2023) Take 1 (one) tablet by mouth 2 times daily * buPROPion XL 24hr (Wellbutrin-XL) 150 MG tablet(Started 08/03/2023) Take 1 (one) tablet by mouth every morning * vitamin D3 (Cholecalciferol) 125 MCG (5000 UT) capsule Take 1 (one) capsule by mouth once daily * Docusate Sodium (DSS) 100 MG Take 200 mg by mouth 2 times daily * DULoxetine (Cymbalta) 60 MG capsule(Started 2023) Take 1 (one) capsule by mouth once daily * fluticasone propionate (Flonase) 50 MCG/ACT nasal spray(Started 07/26/2023) Reserve 2 (two) sprays into the nose once daily * folic acid (Folvite) 1 MG tablet(Started 09/05/2023) Take 2 (two) tablets by mouth once daily * gabapentin (Neurontin) 100 MG capsule(Started 09/19/2023) Take 2 (two) capsules by mouth 2 times daily * gabapentin (Neurontin) 300 MG capsule(Started 09/02/2023) Take 1 (one) capsule by mouth at bedtime * hydroxychloroquine (Plaquenil) 200 MG tablet(Started 09/05/2023) Take 1 (one) tablet by mouth 2 times daily * ketoconazole (Nizoral) 2 % shampoo(Started 09/18/2023) WASH SCALP 3 TIMES WEEKLY * meloxicam (Mobic) 15 MG tablet(Started 09/02/2023) Take 0.5 (one-half) tablet by mouth once daily * methotrexate 2.5 MG tablet(Started 08/22/2023) Take 8 (eight) tablets by mouth every 7 days * montelukast (Singulair) 10 MG tablet(Started 06/14/2023) Take 1 (one) tablet by mouth * potassium chloride ER (K-Tab) 10 MEQ tablet(Started 04/19/2023) Take 1 (one) tablet by mouth once daily 11 refills remaining * pravastatin (Pravachol) 40 MG tablet(Started 06/14/2023) Take 1 (one) tablet by mouth once daily * sucralfate (Carafate) 1 GM tablet Take 1 (one) tablet by mouth 4 times daily * traMADol (Ultram) 50 MG tablet Take 1 (one) tablet by mouth every 6 hours as needed Social History Tobacco Use Types Packs/Day Years Used Date Smoking Tobacco: Never Smokeless Tobacco: Never Tobacco Cessation:Counseling Given: Not Answered Alcohol Use Standard Drinks/Week Comments Never 0 (1 standard drink = 0.6 oz pur e alcohol) Sex and Gender Information Value Date Recorded Sex Assigned at Not on file Gender Identity Not on file Sexual Orientation Not on file Procedures * CO ESOPHAGUS MOTILITY STUDY(Performed 10/19/2023) Performed for Gastroesophageal reflux disease, unspecified whether esophagitis present, Hiatal hernia * DERMATOPATHOLOGY(Performed 02/16/2022) Results * DERMATOPATHOLOGY (02/16/2022 12:00 AM CDT) Case Report Dermatopathology Report Case: [id number] Authorizing Provider: Stacey North DO Collected: 02/16/2022 12:00 AM Ordering Location: [facility] DermPath Lab Received: 02/16/2022 04:40 PM Pathologist: Mikayla Gayle MD Specimens: A) - Skin, crown of scalp B) - Skin, mid forehead 2:24 PM CDT DERMATOPATHOLOGY LABORATORY Final Diagnosis Specimen A. SKIN, crown of scalp: BASAL CELL CARCINOMA, NODULAR TYPE (C44.41) Specimen B. SKIN, mid forehead: ACTINIC KERATOSIS, PIGMENTED (L57.0) CHRONIC PERIFOLLICULITIS (L73.8) 2:24 PM CDT DERMATOPATHOLOGY LABORATORY Clinical History A: R/O: BCC B: Pig AK vs. Lent R/O: LM 2:24 PM CDT DERMATOPATHOLOGY LABORATORY Gross Description Specimen A: Received is one formalin filled container labeled with the patient's name and designated crown of scalp. The specimen consists of a shave biopsy measuring [id number]. Jar 0. Specimen B: Received is one formalin filled container labeled with the patient's name and designated mid forehead. The specimen consists of a shave biopsy measuring [id number]. Jar 0. 2:24 PM CDT DERMATOPATHOLOGY LABORATORY Microscopic Description Specimen A. SKIN, crown of scalp: Within the dermis there are aggregates of basaloid cells with a high nuclear to cytoplasmic ratio and peripheral palisading. Specimen B. SKIN, mid forehead: There is alternating orthokeratosis and parakeratosis. Along the undersurface of the epidermis, there are buds of atypical keratinocytes in a disorderly arrangement. There is prominent pigmentation in some of the keratinocytes. Sections show a perifollicular lymphohistiocytic infiltrate. 2:24 PM CDT DERMATOPATHOLOGY LABORATORY Disclaimer An external and internal positive and negative controls are appropriate for the histochemical, immunohistochemical and immunofluorescence stain(s) in this case (if any), except where stated explicitly. The performance characteristics of the stain(s) cited in this report were developed and its performance characteristic determined by the Dermatopathology Laboratory at [facility], directed by Dr. Leah Gayle. These tests need not be, and therefore are not, approved by the [place] Food and Drug Administration. The tests are used for clinical purposes. Billing Codes Specimen Charges Stain Charges 32414 89669 1 1 2 2:24 PM CDT DERMATOPATHOLOGY LABORATORY Embedded Images 2 2:24 PM CDT DERMATOPATHOLOGY LABORATORY Pathology/Cytology TISSUE SPECIMEN FROM SKIN / Unknown 02/16/2022 02/16/2022 4:40 PM CDT Miscellaneous samples (specimen) TISSUE SPECIMEN FROM SKIN / Unknown 02/16/2022 02/16/2022 4:40 PM CDT Stacey North DO LAB - PATHOLOGY/C YTOLOGY ORDERABLES DERMATOPATHOLOGY LABORATORY [facility] - Department of Dermatology [facility] Specialized Medicine [address] [place] [address], [address] [phone] Care Teams Director Of Donor Relations Relationship Specialty Start Date End Date Darvin Harden MD [address] [facility] [address] [place] [address] PCP - General 07/11/19
--- OUTSIDE RECORDS SUMMARY | 2024-08-29 18:48 | XMS_ITS | Encounter Summary ---
Author Organization [facility] Healthcare Address [address] [place] [address] Care Team Providers Care Ruby On Rails Web Developer Name Role Phone Sharan Linton MD Unavailable [phone] Martha Starks MD Unavailable [phone] Shama Hines MD Unavailable Artis Grewal MD Unavailable [phone] Alee Elizondo Primary Care Provider [phone] Amy Mayes NP Unavailable [phone] Shailesh Dunn MD Unavailable [phone] Sangita Farrar Unavailable [phone] Reason for Visit * Reason Onset Date Comments Leg Pain 08/29/2024 Encounter Details Date Type Department Care Team (Late st Contact Info) Description 08/29/2024 Nurse Triage [facility] Medical Group Family Medicine [address] [place] [address] Alee Elizondo PA [address] [facility] [address] [place] [address] Social History Tobacco Use Types Packs/Day Years Used Date Smoking Tobacco: Never Smokeless Tobacco: Never Comments:Never used Alcohol Use Standard Drinks/Week Comments No 0 (1 standard drink = 0.6 oz pur e alcohol) [facility] Utilities Answer Date Recorded In the past 12 months has e Engiver, gas, oil, or water [employer] threatened to shut off services in your home? No 05/30/2024 Social Connection and Isolation Panel [NHANES] A nswer Date Recorded In a typical week, how many times do you talk on the phone with family, friends, or neighbors? Twice a week 05/30/20 How often do you get togethe r with friends or relatives? Twice a week 05/30/2024 How often do you attend chur ch or muslim services? 1 to 4 times per year 05/30/2024 Do you belong to any clubs o r organizations such as shinto groups, unions, fraternal or athletic groups, or school groups? No 05/30/2024 How often do you attend meet ings of the clubs or organizations you belong to? Never 05/30/2024 Are you , , di vorced, , never , or living with a partner? Never 05/30/2024 AUDIT-C Answer Date Recorded Q1: How often do you have a drink containing alcohol? Never 05/17/2024 Q2: How many drinks containi ng alcohol do you have on a typical day when you are drinking? Patient does not drink Q3: How often do you have si x or more drinks on one occasion? Never 05/17/2024 Overall Financial Resource Strain (CARDIA) Answe r Date Recorded How hard is it for you to pa y for the very basics like food, housing, medical care, and heating? Not hard at all 05/30/2024 PHQ-2 Answer Date Recorded PHQ-2 Total Score (If total score is 3 or more points, staff should administer the PHQ-9) 0 05/01/2024 Hunger Vital Sign Answer Date Recorded Within the past 12 months, y ou worried that your food would run out before you got the money to buy more. Never true 05/30/20 24 Within the past 12 months, t he food you bought just didn't last and you didn't have money to get more. Never true 05/30/2024 PRAPARE - Transportation Answer Date Re corded In the past 12 months, has l ack of transportation kept you from medical appointments or from getting medications? No 05/05 In the past 12 months, has l ack of transportation kept you from meetings, work, or from getting things needed for daily living? No 05/30/2024 Housing Stability Vital Sign Answer Jarrett e Recorded In the last 12 months, was t here a time when you were not able to pay the mortgage or rent on time? No 05/27/2023 In the last 12 months, how many places have you lived? 1 05/27/2023 In the last 12 months, was t here a time when you did not have a steady place to sleep or slept in a long-term (including now)? No 05/27/2023 Housing Stability Vital Sign Answer Jarrett e Recorded In the last 12 months, was t here a time when you were not able to pay the mortgage or rent on time? No 05/30/2024 In the past 12 months, how m any times have you moved where you were living? 0 05/30/2024 At any time in the past 12 m [facility], were you homeless or living in a long-term (including now)? No 05/30/2024 Personal Safety Answer Date Recorded Have you ever been in or are you currently in a harmful physical or emotional relationship or is someone making you feel afraid or unsafe? Denies 05/30/2024 Comments No Sex and Gender Information Value Date Recorded Sex Assigned at Not on file Legal Sex Female 8:04 PM BI REPORT DEVELOPER Gender Identity Female 02/15/2020 6:08 PM CDT Sexual Orientation Not on file documented as of this encounter Miscellaneous Notes * Telephone Encounter - Ivon Macario RN - 08/29/2024 11:18 AM CST Patient called with C/O right leg pain from groin to foot which is worse with bearing weight which started today. Denies injury, swelling, redness, warmth to touch. Denies chest pain or SOB. Rates her pain as severe. She applied heat to the area. No appt available in office today. Appt offered CC, declined. Advised patient to go to Care Advice Given: Tylenol, continue heat Educated patient to call back if worsens, new symptoms develop or has further questions/concerns. Reason for Disposition SEVERE pain (e.g., excruciating, unable to do any normal activities) Protocols used: Leg [id number]-[id number]-[id number] REPORT DEVELOPER * Telephone Encounter - Ivon Macario RN - 08/29/2024 11:13 AM CST Regarding: moderate pain in right leg from groin to foot, worse when walking ----- Message from Rahel Ovalle sent at 08/29/2024 9:46 AM BI REPORT DEVELOPER ----- Symptom Based Call Chief Complaint(s): moderate pain in right leg from groin to foot, worse when walking Duration: today What type of symptom(s) is the patient experiencing? Non-Emergent. Is this a new or reoccurring symptom(s)? new What have you tried to help your symptom(s)? Heat pad Why was appointment not scheduled? Appointment availability did not meet the patient's need. Additional Comments: none Does message need to be routed? Yes-Action Needed REPORT DEVELOPER documented in this encounter Plan of Treatment Not on file documented as of this encounter Visit Diagnoses Not on filedocumented in this encounter Care Teams Ruby On Rails Web Developer Relationship Specialty Start Date End Date Alee Elizondo PA [address] [facility] [address] [place] [address] PCP - General Internal Medicine 07/05/23 Sharan Linton MD Referring Physician Gastroenterology 10/31/18 Martha Starks MD Consulting Physician Cardiology 12/24/20 Shama Hines MD [address] [facility] [address] [place] [address] Consulting Physician Pain Management 01/19/21 Artis Grewal MD [address] [place] [address] Consulting Physician Rheumatology 01/30/21 Amy Mayes NP [address] [address] Nurse Practitioner Cardiovascular Disease 04/20/24 Shailesh Dunn MD [address] [address] Consulting Physician Pulmonary Disease 04/20/24 Sangita Farrar PA [address] [place] [address] Physician Business Process Specialist Rheumatology 05/15/24 documented as of this encounter
--- OUTSIDE RECORDS SUMMARY | 2024-08-29 18:48 | XMS_ITS | Referral Summary ---
Author Organization [facility] [facility] Address [address] [place] [address] Care Team Providers Care Information Clerk Automobile Club Name Role Phone Darvin Harden MD Primary Care Provider [phone] Source Comments [facility],non-owned Affiliates and Associated Physician Practices is amultiple site organization consisting of ambulatory clinics and hospital sitesin [place], [place], [place] and [place]. This disclosure is being madepursuant to the Care Everywhere program and may not contain all information available regarding this patient. Last updated 18.[facility] Allergies Active Allergy Reactions Criticality Noted Date Comments Meperidine Urticaria Medium 10/19/2023 Penicillins Urticaria Medium 10/19/2023 Medications * Be aware that medications may not be up to date on this document. Alwaysverify current medications with the patient. Medication Sig Dispensed Refills Start Date End Date Status abatacept (Orencia) 125 MG/ML prefilled syringe Inject 1 (one) syringe subcutaneously Active bumetanide (Bumex) 1 MG tablet Take 1 (one) tablet by mouth 2 times daily 04/19/2023 Active buPROPion XL 24hr (Wellbutrin-XL) 150 MG tablet Take 1 (one) tablet by mouth every morning 08/03/2023 Active vitamin D3 (Cholecalciferol) 125 MCG (5000 UT) capsule Take 1 (one) capsule by mouth once daily Active Docusate Sodium (DSS) 100 MG Take 200 mg by mouth 2 times daily Active DULoxetine (Cymbalta) 60 MG capsule Take 1 (one) capsule by mouth once daily 2023 Active fluticasone propionate (Flonase) 50 MCG/ACT nasal spray [place] 2 (two) sprays into the nose once daily 07/26/2023 Active folic acid (Folvite) 1 MG tablet Take 2 (two) tablets by mouth once daily 09/05/2023 Active gabapentin (Neurontin) 100 MG capsule Take 2 (two) capsules by mouth 2 times daily 09/19/2023 Active gabapentin (Neurontin) 300 MG capsule Take 1 (one) capsule by mouth at bedtime 09/02/2023 Active hydroxychloroquin e (Plaquenil) 200 MG tablet Take 1 (one) tablet by mouth 2 times daily 09/05/2023 Active ketoconazole (Nizoral) 2 % shampoo WASH SCALP 3 TIMES WEEKLY 09/18/2023 Active meloxicam (Mobic) 15 MG tablet Take 0.5 (one-half) tablet by mouth once daily 09/02/2023 Active methotrexate 2.5 MG tablet Take 8 (eight) tablets by mouth every 7 days 08/22/2023 Active montelukast (Singulair) 10 MG tablet Take 1 (one) tablet by mouth 06/14/2023 Active potassium chloride ER (K-Tab) 10 MEQ tablet Take 1 (one) tablet by mouth once daily 30 tablet 11 04/19/2023 Active pravastatin (Pravachol) 40 MG tablet Take 1 (one) tablet by mouth once daily 06/14/2023 Active sucralfate (Carafate) 1 GM tablet Take 1 (one) tablet by mouth 4 times daily Active traMADol (Ultram) 50 MG tablet Take 1 (one) tablet by mouth every 6 hours as needed Active Social History Tobacco Use Types Packs/Day Years Used Date Smoking Tobacco: Never Smokeless Tobacco: Never Tobacco Cessation:Counseling Given: Not Answered Alcohol Use Standard Drinks/Week Comments Never 0 (1 standard drink = 0.6 oz pur e alcohol) Sex and Gender Information Value Date Recorded Sex Assigned at Not on file Gender Identity Not on file Sexual Orientation Not on file Plan of Treatment Not on file Care Teams Information Clerk Automobile Club Relationship Specialty Start Date End Date Darvin Harden MD [address] [place] [address] PCP - General 07/11/19
--- OUTSIDE RECORDS SUMMARY | 2024-08-29 18:48 | XMS_ITS | Encounter Summary ---
Author Organization [facility] Care Team Providers Care Furnace Charger Name Role Phone Alee Elizondo Primary Care Provider + [phone] Sharan Linton MD Unavailable [phone] Taisha Gomez MD Unavailable [phone] Parag Soto MD Unavailable [phone] [facility] MD Unavailable [phone] Puneet Uribe MD Unavailable [phone] Shama Hines MD Unavailable Artis Grewal MD Unavailable [phone] Harrison Pena RN Unavailable [phone] Nafisa Gregg RN Unavailable Tho Kelsey MD Primary Care Provider [phone] Alee Elizondo Primary Care Provider + [phone] Amy Mayes NP Unavailable [phone] Shailesh Dunn MD Unavailable [phone] Sangita Farrar Unavailable [phone] Encounter Details Date Type Department Care Team (Latest Contact Info) Description 09/29/2015 Orders Only [facility] CLINCONV Provider, MD Tania [address] [place] [address] Social History Tobacco Use Types Packs/Day Years Used Date Smoking Tobacco: Never Assessed Comments Unknown Sex and Gender Information Value Date Recorded Sex Assigned at Not on file Legal Sex Female 8:04 PM TECHNICAL DATA ANALYST Gender Identity Female 02/15/2020 6:08 PM CDT Sexual Orientation Not on file documented as of this encounter Plan of Treatment Not on file documented as of this encounter Procedures Procedure Name Priority Date/Time Associated Diagnosis Comments PROCEDURE - RESULT 10/20/2015 12 :00 AM CDT documented in this encounter Results * PROCEDURE - RESULT (10/20/2015 12:00 AM CDT) Narrative 10/20/2015 12:00 AM CDT Ordered by an unspecified provider. Historical Provider MD Final Res ult documented in this encounter Visit Diagnoses Not on filedocumented in this encounter Additional Health Concerns Infection Onset Date Last Indicated Resolved Time COVID: Suspected 08/13/2021 08/14/2021 08/14/2021 3:06 AM TECHNICAL DATA ANALYST COVID: Suspected 08/14/2021 08/14/2021 08/15/2021 3:05 AM TECHNICAL DATA ANALYST COVID: Suspected 08/14/2021 08/14/2021 08/15/2021 6:25 AM TECHNICAL DATA ANALYST COVID: Suspected 06/02/2023 06/02/2023 06/02/2023 7:25 PM TECHNICAL DATA ANALYST COVID: Suspected 07/26/2023 07/26/2023 07/26/2023 3:10 PM TECHNICAL DATA ANALYST documented as of this encounter Care Teams Furnace Charger Relationship Specialty Start Date End Date Alee Elizondo PA [address] [facility] [address] [place] [address] PCP - General Internal Medicine 02/01/17 06/29/23 Tho Kelsey MD [address] [facility] [address] [place] [address] PCP - General Family Medicine 06/30/23 07/04/23 Alee Elizondo PA [address] [place] [address] PCP - General Internal Medicine 07/05/23 Sharan Linton MD [address] [place] [address] Referring Physician Gastroenterology 10/31/18 Taisha Gomez MD [address] [place] [address] Referring Physician Pulmonary Disease 10/31/18 12/23/20 Parag Soto MD [address] [place] [address] Referring Physician Rheumatology 10/31/18 12/23/20 Martha Starks MD [address] [place] [address] Consulting Physician Cardiology 12/24/20 Puneet Uribe MD [address] [facility] [address] [place] [address] Consulting Physician Rheumatology 12/24/20 01/29/21 Shama Hines MD [address] [facility] [address] [place] [address] Consulting Physician Pain Management 01/19/21 Artis Grewal MD [address] [place] [address] Consulting Physician Rheumatology 01/30/21 Harrison Pena RN [address] [place] [address] Ball Holder 05/30/23 09/04/23 Nafisa Gregg, JULIUS [address] [place] [address] [address] [place] [address] Ball Holder 06/06/23 06/12/23 Amy Mayes NP [address] [address] Nurse Practitioner Cardiovascular Disease 04/20/24 Shailesh Dunn MD [address] [facility] [address] [place] [address] Consulting Physician Pulmonary Disease 04/20/24 Sangita Farrar PA [address] [place] [address] Physician Wool Shearing Supervisor Rheumatology 05/15/24 documented as of this encounter
--- OUTSIDE RECORDS SUMMARY | 2024-08-29 18:48 | XMS_ITS | Clinical Summary ---
Author Organization [facility] Address [address] [place] [address] Care Team Providers Care Fourdrinier Wire Weaver Name Role Phone Darvin Harden MD Primary Care Provider [phone] [facility],non-owned Affiliates and Associated Physician Practices is amultiple site organization consisting of ambulatory clinics and hospital sitesin [place], [place]. This disclosure is being madepursuant to the Care Everywhere program and may not contain all information available regarding this patient. Last updated 18.[facility] Allergies Active Allergy Reactions Criticality Noted Date [...] fluticasone propionate (Flonase) 50 MCG/ACT nasal spray Gregory 2 (two) sprays into the nose once [...] Orientation Not on file Plan of Treatment Health Maintenance Due Date Last Done Comments COLOGUARD (AGES 45-75) - COLON CA SCREENING [address] COLONOGRAPHY - COLON CA SCREENING 1955 FIT - COLON CA SCREENING 1955 FLEX SIG - COLON CA SCREENING 1955 HEPATITIS C SCREENING 06/03/1973 DTAP/TDAP/TD VACCINES (1 - Tdap) 1974 PNEUMOCOCCAL VACCINE 50+ (1 of 1 - PCV) 2005 ZOSTER VACCINE (1 of 2) 2005 MAMMOGRAM 05/29/2023 05/29/2021, 04/25/2020 COVID-19 VACCINE ( - season) 2024 04/14/2023, 08/17/2022, 03/30/2022, Additional history exists INFLUENZA VACCINE (#1) 2024 , 03/30/2022, 04/10/2020, Additional history exists DEPRESSION SCREENING 07/04/2024 MEDICARE AWV CALENDAR YEAR 2024 Respiratory Syncytial Virus (RSV) Vaccine Pt: or over 60 yrs (1 - 1-dose 75+ series) 2030 COLONOSCOPY - COLON CA SCREENING 07/27/2031 07/27/2021 Colorectal Cancer Screening 07/27/2031 BONE DENSITY TESTING Completed 07/11/2014 HEPATITIS B VACCINE Aged Out No longe r eligible based on patient's age to complete this topic HIB VACCINE Aged Out No longer eligi ble based on patient's age to complete this topic HPV VACCINE Aged Out No longer eligi ble based on patient's age to complete this topic MENINGOCOCCAL (Group B) VACCINE Aged Out No longer eligible based on patient's age to complete this topic MENINGOCOCCAL VACCINE Aged Out No tammy beni eligible based on patient's age to complete this topic Care Teams Fourdrinier Wire Weaver Relationship Specialty Start Date End Date Darvin Harden MD [address] [place] [id number] PCP - General 07/11/19
--- OUTSIDE RECORDS SUMMARY | 2024-08-29 18:48 | XMS_ITS | Encounter Summary ---
Author Organization [facility] Address [address] [place] [address] Care Team Providers Care Theoretical Physics Teacher Name Role Phone Sharan Linton MD Unavailable [phone] Martha Starks MD Unavailable [phone] Shama Hines MD Unavailable Artis Grewal MD Unavailable [phone] Alee Elizondo Primary Care Provider [phone] Amy Mayes NP Unavailable [phone] Shailesh Dunn MD Unavailable [phone] Sangita Farrar Unavailable [phone] Encounter Details Date Type Department Care Team (Late st Contact Info) Description 10/03/2023 Orders Only [facility] Health Information Management [address] [place] [address] Scanning, Provider Social History Tobacco Use Types Packs/Day Years Used Date Smoking Tobacco: Never Smokeless Tobacco: Never Comments:Never used Alcohol Use Standard Drinks/Week Comments No 0 (1 standard drink = 0.6 oz pur e alcohol) [facility] Utilities Answer Date Recorded In the past 12 months has e electric, gas, oil, or water company threatened to shut off services in your home? No 05/27/2023 Social Connection and Isolat ion Panel [NHANES] Answer Date Recorded In a typical week, how many times do you talk on the phone with family, friends, or neighbors? More than three times a week 05/27/2023 How often do you get togethe r with friends or relatives? More than three times a week 05/27/2023 How often do you attend chur ch or tenriism services? More than 4 times per year 05/27/2023 Do you belong to any clubs o r organizations such as denominational groups, unions, fraternal or athletic groups, or school groups? No 05/27/2023 How often do you attend meet ings of the clubs or organizations you belong to? Never 05/27/2023 Are you , , di vorced, , never , or living with a partner? Never 05/27/2023 AUDIT-C Answer Date Recorded Q1: How often do you have a drink containing alc ohol? Never 09/06/2023 Average Number of Drinks Not on file 024 Q3: How often do you have si x or more drinks on one occasion? Never 09/06/2023 Overall Financial Resource Strain (CARDIA) Answe r Date Recorded How hard is it for you to pa y for the very basics like food, housing, medical care, and heating? Not hard at all 05/27/2023 PHQ-2 Answer Date Recorded PHQ-2 Total Score 4 09/06/2023 Hunger Vital Sign Answer Date Recorded Within the past 12 months, y ou worried that your food would run out before you got the money to buy more. Never true 05/27/20 23 Within the past 12 months, t he food you bought just didn't last and you didn't have money to get more. Never true 05/27/2023 PRAPARE - Transportation Answer Date Re corded In the past 12 months, has l ack of transportation kept you from medical appointments or from getting medications? No 05/05 In the past 12 months, has l ack of transportation kept you from meetings, work, or from getting things needed for daily living? No 05/27/2023 Housing Stability Vital Sign Answer [...] place to sleep or slept in a nursing home (including now)? No 05/27/2023 Personal Safety Answer Date Recorded Have you ever been in or are you currently in a harmful physical or emotional relationship or is someone making you feel afraid or unsafe? Denies 06/02/2023 Comments No Sex and Gender Information Value Date Recorded Sex Assigned at Not on file Legal Sex Female 8:04 PM SHOT EXAMINER Gender Identity Female 02/15/2020 6:08 PM CDT Sexual Orientation Not on file documented as of this encounter Plan of Treatment Not on file documented as of this encounter Procedures Procedure Name Priority Date/Time Associated Diagnosis Comments SCAN - RADIOLOGY/IMAGING 10/03/2023 documented in this encounter Results * SCAN - RADIOLOGY/IMAGING (10/03/2023) Anatomical Region Laterality Modality Other us Provider Scanning Edited Result - Final documented in this encounter Visit Diagnoses Not on filedocumented in this encounter Care Teams Theoretical Physics Teacher Relationship Specialty Start Date End Date Alee Elizondo PA [address] [facility] [address] [place] [address] PCP - General Internal Medicine 07/05/23 Sharan Linton MD Referring Physician Gastroenterology 10/31/18 Martha Starks MD Consulting Physician Cardiology 12/24/20 Shama Hines MD [address] [facility] [address] [place] [address] Consulting Physician Pain Management 01/19/21 Artis Grewal MD [address] [place] [address] Consulting Physician Rheumatology 01/30/21 Amy Mayes NP [address] [address] Nurse Practitioner Cardiovascular Disease 04/20/24 Shailesh Dunn MD [address] [address] Consulting Physician Pulmonary Disease 04/20/24 Sangita Farrar PA [address] [place] [address] Physician Nursing Informatics Clinical Analyst Rheumatology 05/15/24 documented as of this encounter
--- OUTSIDE RECORDS SUMMARY | 2024-08-29 18:48 | XMS_ITS | Encounter Summary ---
Author Organization [facility] Healthcare Address [address] [place] [address] Care Team Providers Care Disability Insurance Claim Examiner Name Role Phone Sharan Linton MD Unavailable [phone] Martha Starks MD Unavailable [phone] Shama Hines MD Unavailable Artis Grewal MD Unavailable [phone] Alee Elizondo Primary Care Provider [phone] Amy Mayes NP Unavailable [phone] Shailesh Dunn MD Unavailable [phone] Sangita Farrar Unavailable [phone] Encounter Details Date Type Department Care Team (Late st Contact Info) Description 10/11/2023 Orders Only [facility] Health Information Management [address] [place] [address] Scanning, Provider Social History Tobacco Use Types Packs/Day Years Used Date Smoking Tobacco: Never Smokeless Tobacco: Never Comments:Never used Alcohol Use Standard Drinks/Week Comments No 0 (1 standard drink = 0.6 oz pur e alcohol) [facility] Utilities Answer Date Recorded In the [...] often do you attend chur ch or zoroastrian services? More than 4 times per year 05/27/2023 Do you belong to any clubs o r organizations such as pentecostal groups, unions, fraternal or athletic groups, or [...] points, staff should administer the PHQ-9) 0 10/13/2023 Hunger Vital Sign Answer Date Recorded Within [...] place to sleep or slept in a senior living (including now)? No 05/27/2023 Personal Safety Answer Date Recorded Have you ever been in or are you currently in a harmful physical or emotional relationship or is someone making you feel afraid or unsafe? Denies 06/02/2023 Comments No Sex and Gender Information Value Date Recorded Sex Assigned at Not on file Legal Sex Female 8:04 PM DEPLOYMENT SPECIALIST Gender Identity Female 02/15/2020 6:08 PM CDT Sexual Orientation Not on file documented as of this encounter Plan of Treatment Not on file documented as of this encounter Procedures Procedure Name Priority Date/Time Associated Diagnosis Comments SCAN - LABS 10/11/2023 documented in this encounter Results * SCAN - LABS (10/11/2023) us Provider Scanning Final Result documented in this encounter Visit Diagnoses Not on filedocumented in this encounter Care Teams Disability Insurance Claim Examiner Relationship Specialty Start Date End Date Alee Elizondo PA [address] [facility] [address] [place] [address] PCP - General Internal Medicine 07/05/23 Sharan Linton MD Referring Physician Gastroenterology 10/31/18 Martha Starks MD Consulting Physician Cardiology 12/24/20 Shama Hines MD [address] [facility] [address] [place] [address] Consulting Physician Pain Management 01/19/21 Artis Grewal MD [address] [place] [address] Consulting Physician Rheumatology 01/30/21 Amy Mayes NP [address] [place] [address] Nurse Practitioner Cardiovascular Disease 04/20/24 Shailesh Dunn MD [address] [address] Consulting Physician Pulmonary Disease 04/20/24 Sangita Farrar PA [address] [place] [address] Physician Insurance Job Titles Rheumatology 05/15/24 documented as of this encounter
--- OUTSIDE RECORDS SUMMARY | 2024-08-29 18:48 | XMS_ITS | Encounter Summary ---
Author Organization [facility] Facility Care Team Providers Care Deputy Director Name Role Phone Alee Elizondo Primary Care Provider + [phone] Sharan Linton MD Unavailable [phone] Taisha Gomez MD Unavailable [phone] Parag Soto MD Unavailable [phone] RaziaMartha singh MD Unavailable [phone] Puneet Uribe MD Unavailable [phone] Shama Hines MD Unavailable Artis Grewal MD Unavailable [phone] Harrison Pena RN Unavailable [phone] Nafisa Gregg RN Unavailable [phone] Tho Kelsey MD Primary Care Provider [phone] Alee Elizondo Primary Care Provider + [phone] Amy Mayes NP Unavailable [phone] Shailesh Dunn MD Unavailable [phone] Sangita Farrar Unavailable [phone] Encounter Details Date Type Department Care Team (Latest Contact Info) Description 03/24/2016 Orders Only [facility] CLINCONV Provider, MD Tania [address] [place] [address] Social History Tobacco Use Types Packs/Day Years Used Date Smoking Tobacco: Never Alcohol Use Standard Drinks/Week Comments No 0 (1 standard drink = 0.6 oz pur e alcohol) Comments Unknown Sex and Gender Information Value Date Recorded Sex Assigned at Not on file Legal Sex Female 8:04 PM COUNSELING CENTER DIRECTOR Gender Identity Female 02/15/2020 6:08 PM CDT Sexual Orientation Not on file documented as of this encounter Plan of Treatment Not on file documented as of this encounter Procedures Procedure Name Priority Date/Time Associated Diagnosis Comments SCAN - LABS 03/24/2016 12:00 AM CDT documented in this encounter Results * SCAN - LABS (03/24/2016 12:00 AM CDT) Narrative 03/24/2016 12:00 AM CDT Ordered by an unspecified provider. Historical Provider Final Res ult documented in this encounter Visit Diagnoses Not on filedocumented in this encounter Additional Health Concerns Infection Onset Date Last Indicated Resolved Time COVID: Suspected 08/13/2021 08/14/2021 08/14/2021 3:06 AM COUNSELING CENTER DIRECTOR COVID: Suspected 08/14/2021 08/14/2021 08/15/2021 3:05 AM COUNSELING CENTER DIRECTOR COVID: Suspected 08/14/2021 08/14/2021 08/15/2021 6:25 AM COUNSELING CENTER DIRECTOR COVID: Suspected 06/02/2023 06/02/2023 06/02/2023 7:25 PM COUNSELING CENTER DIRECTOR COVID: Suspected 07/26/2023 07/26/2023 07/26/2023 3:10 PM COUNSELING CENTER DIRECTOR documented as of this encounter Care Teams Deputy Director Relationship Specialty Start Date End Date Alee Elizondo PA [address] [facility] [address] [place] [address] PCP - General Internal Medicine 02/01/17 06/29/23 Tho Kelsey MD [address] [facility] [address] [place] [address] PCP - General Family Medicine 06/30/23 07/04/23 Alee Elizondo PA [address] [place] [address] PCP - General Internal Medicine 07/05/23 Sharan Linton MD [address] [place] [address] Referring Physician Gastroenterology 10/31/18 Taisha Gomez MD [address] [place], [place] [address] Referring Physician Pulmonary Disease 10/31/18 12/23/20 Parag Soto MD [address] [facility] [address] [place] [address] Referring Physician Rheumatology 10/31/18 12/23/20 Martha Starks MD [address] [facility] [address] [place] [address] Consulting Physician Cardiology 12/24/20 Puneet Uribe MD [address] [facility] [address] [place] [address] Consulting Physician Rheumatology 12/24/20 01/29/21 Shama Hines MD [address] [facility] [address] [place] [address] Consulting Physician Pain Management 01/19/21 Artis Grewal MD [address] [place] [address] Consulting Physician Rheumatology 01/30/21 Harrison Pena, JULIUS [address] [place] [address] Blood Bank Booking Clerk 05/30/23 09/04/23 Nafisa Gregg, JULIUS [address] [place] [address] [address] [place] [address] Blood Bank Booking Clerk 06/06/23 06/12/23 Amy Mayes NP [address] [facility] [address] [facility] 102 [place] [address] Nurse Practitioner Cardiovascular Disease 04/20/24 Shailesh Dunn MD [address] [facility] [address] [place] [address] Consulting Physician Pulmonary Disease 04/20/24 Sangita Farrar PA [address] [place] [address] Physician Game Bird Farmer Rheumatology 05/15/24 documented as of this encounter
--- OUTSIDE RECORDS SUMMARY | 2024-08-29 18:48 | XMS_ITS | Clinical Summary ---
Author Organization [facility] Address [address] [place] [address] Care Team Providers Care Attending Pathologist Name Role Phone Unavailable Primary Care Provider Unavailabl e Social History Tobacco Use Types Packs/Day Years Used Date Smoking Tobacco: Never Assessed Comments Unknown Sex and Gender Information Value Date Recorded Sex Assigned at Not on file Legal Sex Female 8:32 PM CDT Gender Identity Not on file Sexual Orientation Not on file Plan of Treatment Health Maintenance Due Date Last Done Comments Colorectal Cancer Screening Colonoscopy (10 Years) 1955 Hepatitis C 1973 Mammogram Screening 1995 COVID-19 Vaccine ( season) 2024 04/14/2023, 03/30/2022, 10/21/2021 Influenza Adult (#1) 2024 03/30/2022, 04/10/2020, 03/22/2019, Additional history exists RSV Immunization or 60+ Years (1 - 1-dose 75+ series) 2030 DTaP, Tdap and Td Vaccines (3 - Td or Tdap) 03/08/2031 03/08/2021, 08/20/2019 Zoster Vaccines Completed 12/13/2017, 12/02, 10/10/2017 Pneumococcal Vaccine: 65+ Years Completed 12/21/2022, 07/06/2014, 08/21/2009 Dexa Scan (General) Completed 04/12/2023 Meningococcal B Vaccine Aged Out No l onger eligible based on patient's age to complete this topic Meningococcal Vaccine Aged Out No tammy beni eligible based on patient's age to complete this topic RSV Immunizations Under 20 Months Aged Out No longer eligible based on patient's age to complete this topic
--- OUTSIDE RECORDS SUMMARY | 2024-08-29 18:48 | XMS_ITS | Encounter Summary ---
Author Organization [facility] Facility Care Team Providers Care Photography Colorist Name Role Phone Alee Elizondo Primary Care Provider + [phone] Sharan Linton MD Unavailable [phone] Taisha Gomez MD Unavailable [phone] Parag Soto MD Unavailable [phone] RaziaMartha singh MD Unavailable [phone] Puneet Uribe MD Unavailable [phone] Shama Hines MD Unavailable Artis Grewal MD Unavailable [phone] Harrison ePna RN Unavailable [phone] Nafisa Gregg RN Unavailable [phone] Tho Kelsey MD Primary Care Provider [phone] Alee Elizondo Primary Care Provider + [phone] Amy Mayes NP Unavailable [phone] Shailesh Dunn MD Unavailable [phone] Sangita Farrar Unavailable [phone] Encounter Details Date Type Department Care Team (Latest Contact Info) Description 12/31/2015 Orders Only [facility] CLINCONV Provider, MD Tania [address] [place] [address] Social History Tobacco Use Types Packs/Day Years Used Date Smoking Tobacco: Never Alcohol Use Standard Drinks/Week Comments No 0 (1 standard drink = 0.6 oz pur e alcohol) Comments Unknown Sex and Gender Information Value Date Recorded Sex Assigned at Not on file 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 us Historical Provider [facility] LEANDRA LANDRUM Final Result documented in this encounter Visit Diagnoses Not on filedocumented in this encounter Additional Health Concerns Infection Onset Date Last Indicated Resolved Time COVID: Suspected 08/13/2021 08/14/2021 08/14/2021 3:06 AM PILLING MACHINE OPERATOR COVID: Suspected 08/14/2021 08/14/2021 08/15/2021 3:05 AM PILLING MACHINE OPERATOR COVID: Suspected 08/14/2021 08/14/2021 08/15/2021 6:25 AM PILLING MACHINE OPERATOR COVID: Suspected 06/02/2023 06/02/2023 06/02/2023 7:25 PM PILLING MACHINE OPERATOR COVID: Suspected 07/26/2023 07/26/2023 07/26/2023 3:10 PM PILLING MACHINE OPERATOR documented as of this encounter Care Teams Photography Colorist Relationship Specialty Start Date End Date Alee Elizondo PA [address] [facility] [address] [place] [address] PCP - General Internal Medicine 02/01/17 06/29/23 Tho Kelsey MD [address] [facility] [address] [place] [address] PCP - General Family Medicine 06/30/23 07/04/23 Alee Elizondo PA [address] [place] [address] PCP - General Internal Medicine 07/05/23 Sharan Linton MD [address] [place], [place] [id number] Referring Physician Gastroenterology 10/31/18 Taisha Gomez MD [address] [place], [place] [id number] Referring Physician Pulmonary Disease 10/31/18 12/23/20 Parag Soto MD [address] [place] [address] Referring Physician Rheumatology 10/31/18 12/23/20 RaziaMartha singh MD [address] [place] [address] Consulting Physician Cardiology 12/24/20 Puneet Uribe MD [address] [facility] [address] [place] [address] Consulting Physician Rheumatology 12/24/20 01/29/21 Shama Hines MD [address] [facility] [address] [place] [address] Consulting Physician Pain Management 01/19/21 Artis Grewal MD [address] [place] [address] Consulting Physician Rheumatology 01/30/21 Harrison Pena, JULIUS [address] [place] [address] Coyote Hunter 05/30/23 09/04/23 Nafisa Gregg, JULIUS [address] [place] [address] [facility] [address] [place] [address] Coyote Hunter 06/06/23 06/12/23 Amy Mayes NP [address] [facility] [address] [facility] 102 [place] [address] Nurse Practitioner Cardiovascular Disease 04/20/24 Shailesh Dunn MD [address] [address] Consulting Physician Pulmonary Disease 04/20/24 Sangita Farrar PA [address] [place] [address] Physician Review Nurse Rheumatology 05/15/24 documented as of this encounter
--- OUTSIDE RECORDS SUMMARY | 2024-08-29 18:48 | XMS_ITS | Encounter Summary ---
Author Organization [facility] Address [address] [place] [address] Phone Care Team Providers Care Earth Sciences Professor Name Role Phone Sharan Linton MD Unavailable [phone] Martha Starks MD Unavailable [phone] Shama Hines MD Unavailable Artis Grewal MD Unavailable [phone] Alee Elizondo Primary Care Provider [phone] Amy Mayes NP Unavailable [phone] Shailesh Dunn MD Unavailable [phone] Sangita Farrar Unavailable [phone] Encounter Details Date Type Department Care Team (Late st Contact Info) Description 08/24/2024 Results Follow-[facility] [address] [place] [address] Sangita Farrar PA [address] [place] [address] Social History Tobacco Use Types Packs/Day Years Used Date Smoking Tobacco: Never Smokeless Tobacco: Never Comments:Never used Alcohol Use Standard Drinks/Week Comments No 0 (1 standard drink = 0.6 oz pur e alcohol) [facility] Utilities Answer Date Recorded In the past 12 months has th e electric, gas, oil, or water company [...] often do you attend chur ch or religion services? 1 to 4 times per year 05/30/2024 Do you belong to any clubs o r organizations such as amish groups, unions, fraternal or athletic groups, or [...] a senior living (including now)? No 05/27/2023 Housing Stability Vital Sign Answer Jarrett e Recorded In the last 12 months, was t here a time when you were not able to pay the mortgage or rent on time? No 05/30/2024 In the past 12 months, how m any times have you moved where you were living? 0 05/30/2024 At any time in the past 12 m [facility], were you homeless or living in a senior living (including now)? No 05/30/2024 Personal Safety Answer Date Recorded Have you ever been in or are you currently in a harmful physical or emotional relationship or is someone making you feel afraid or unsafe? 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 [address] [place] [address] PCP - General Internal Medicine 07/05/23 Sharan Linton MD Referring Physician Gastroenterology 10/31/18 Martha Starks MD Consulting Physician Cardiology 12/24/20 Shama Hines MD [address] [facility] [address] [place] [address] Consulting Physician Pain Management 01/19/21 Artis Grewal MD [address] [place] [address] Consulting Physician Rheumatology 01/30/21 Amy Mayes NP [address] [facility] [address] [facility] [address] [place] [address] Nurse Practitioner Cardiovascular Disease 04/20/24 Shailesh Dunn MD [address] [facility] [address] [place] [address] Consulting Physician Pulmonary Disease 04/20/24 Sangita Farrar PA [address] [place] [address] Physician Direct Marketing Coordinator Rheumatology 05/15/24 documented as of this encounter
--- OUTSIDE RECORDS SUMMARY | 2024-08-29 18:48 | XMS_ITS | Encounter Summary ---
Author Organization [facility] Healthcare Address [address] [place] [address] Care Team Providers Care Communication Studies Professor Name Role Phone Sharan Linton MD Unavailable [phone] Martha Starks MD Unavailable [phone] Shama Hines MD Unavailable Artis Grewal MD Unavailable [phone] Alee Elizondo Primary Care Provider [phone] Amy Mayes NP Unavailable [phone] Shailesh Dunn MD Unavailable [phone] Sangita Farrar Unavailable [phone] Reason for Visit * Reason Onset Date Comments Med Refill 08/29/2024 Ropinirol HCL 0. 5MG tab Encounter Details Date Type Department Care Team (Late st Contact Info) Description 08/29/2024 Telephone [facility] Medical Group Pulmonary [address] [place] [address] Shailesh Dunn MD [facility] [address] [address] Med Refill (Ropinirol HCL 0.5MG tab) Social History Tobacco Use Types Packs/Day Years Used Date Smoking Tobacco: Never Smokeless Tobacco: Never Comments:Never used Alcohol Use Standard Drinks/Week Comments No 0 (1 standard drink = 0.6 oz pur e alcohol) [facility] Utilities Answer Date Recorded In the [...] often do you attend chur ch or nondenominational services? 1 to 4 times per year 05/30/2024 Do you belong to any clubs o r organizations such as yazidi groups, unions, fraternal or athletic groups, or [...] a nursing home (including now)? No 05/27/2023 Housing Stability Vital Sign Answer Jarrett e Recorded In the last 12 months, was t here a time when you were not able to pay the mortgage or rent on time? No 05/30/2024 In the past 12 months, how m any times have you moved where you were living? 0 05/30/2024 At any time in the past 12 m [facility], were you homeless or living in a nursing home (including now)? No 05/30/2024 Personal Safety Answer Date Recorded Have you ever been in or are you currently in a harmful physical or emotional relationship or is someone making you feel afraid or unsafe? 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 Last seen: 08/02/24 UP coming appointment: 08/06/25 RVISOR POULTRY PROCESSING documented in this encounter Plan of Treatment Not on file documented as of this encounter Visit Diagnoses Diagnosis PLMD (periodic limb movement disorder) Periodic limb movement disorder documented in this encounter Discontinued Medications Medication Sig Discontinue Reason Start Date End Da te rOPINIRole (REQUIP) 0.5 mg tabletIndications:PLMD (periodic limb movement disorder) TAKE 2 TABLETS BY MOUTH NIGHTLY. Reorder 02/20/2024 08/29/2024 documented as of this encounter Care Teams Communication Studies Professor Relationship Specialty Start Date End Date Alee Elizondo PA [address] [facility] [address] [place] [address] PCP - General Internal Medicine 07/05/23 Sharan Linton MD Referring Physician Gastroenterology 10/31/18 Martha Starks MD Consulting Physician Cardiology 12/24/20 Shama Hines MD [address] [facility] [address] [place] [address] Consulting Physician Pain Management 01/19/21 Artis Grewal MD [address] [place] [address] Consulting Physician Rheumatology 01/30/21 Amy Mayes NP [address] [facility] [address] [facility] [address] [place] [address] Nurse Practitioner Cardiovascular Disease 04/20/24 Shailesh Dunn MD [address] [facility] [address] [place] [address] Consulting Physician Pulmonary Disease 04/20/24 Sangita Farrar PA [address] [place] [address] Physician Assistant Professor Nurse Education Rheumatology 05/15/24 documented as of this encounter
--- OUTSIDE RECORDS SUMMARY | 2024-08-29 18:49 | XMS_ITS | Referral Summary ---
Author Organization [facility] [address] Address [address] [place] [address] Care Team Providers Care Green Building Energy Engineer Name Role Phone Sharan Linton MD Unavailable Martha Starks MD Unavailable [phone] Shama Hines MD Unavailable Artis Grewal MD Unavailable [phone] Alee Elizondo Primary Care Provider [phone] Amy Mayes NP Unavailable [phone] Shailesh Dunn MD Unavailable [phone] Sangita Farrar Unavailable Encounters Date Type Department Care Team Description 08/29/[address] [facility] [address] [place] [address] Alee Elizondo PA 08/29/2024 Telephone [facility] [address] [place] [address] Shailesh Dunn MD Med Refill (Ropinirol HCL 0.5MG tab) 08/24/2024 Results Follow-Up [address] [phone] Sangita Farrar PA 08/23/[address] [phone] Sangita Farrar PA Orencia Approved 08/23/2024 11:30 AM SCHOOL LEADER Office Visit [address] [phone] Sangita Farrar PA Seropositive rheumatoid arthritis of multiple sites ([facility]) (HCC) (Primary Dx); Primary osteoarthritis involving multiple joints; Encounter for medication monitoring 08/21/[address] [phone] Codi Branham 08/02/2024 Telephone [facility] [address] [place] [address] Shailesh Dunn MD Orders Only 08/02/2024 11:45 AM SCHOOL LEADER Office Visit [facility] [address] [place] [address] Magaly Snider NP OWEN on CPAP (Primary Dx); OWEN (obstructive sleep apnea); PLMD (periodic limb movement disorder) 08/01/2024 Orders Only [facility] [address] [facility] [facility] [address] [place] [address] Alee Elizondo PA Pre-diabetes (Primary Dx); Mixed hyperlipidemia; Fatigue, unspecified type 07/30/2024 9:00 AM SCHOOL LEADER Office Visit [facility] [address] [place] [phone] Sangita Farrar PA Seropositive rheumatoid arthritis of multiple sites ([facility]) (HCC) (Primary Dx); Primary osteoarthritis involving multiple joints; Encounter for medication monitoring 07/24/2024 1:27 PM SCHOOL LEADER - 07/24/2024 11:59 PM SCHOOL LEADER Hospital Encounter [facility] [address] [place] [address] Status post total knee replacement using cement, right Discharge Disposition: Discharge to home or self care 07/24/[address] [place] [phone] Alee Elizondo PA Referral Request (/) 07/24/2024 2:00 PM SCHOOL LEADER Office Visit [facility] [address] [place] [phone] Michael Motta MD Status post total knee replacement using cement, right (Primary Dx) 07/12/2024 Telephone [facility] [address] [place] [address] [place] [phone] Michael Motta MD ret call 07/03/[address] [place] [phone] Alee Elizondo PA Symptom Based Call 06/28/[address] [place] [phone] Alee Elizondo PA Forms Request 06/26/2024 Telephone [facility] [address] [place] [phone] Michel Rae PA Scheduling Appointments 06/25/2024 Telephone [facility] [address] [place] [phone] Michael Motta MD Post-op Problem 06/22/[address] [place] [phone] Alee Elizondo PA 06/21/2024 9:15 AM SCHOOL LEADER Office Visit [facility] [address] [place] [phone] Michel Rae PA Status post total knee replacement using cement, right (Primary Dx); Primary osteoarthritis of right knee; Orthopedic aftercare; Right knee pain, unspecified chronicity 06/14/2024 9:00 AM SCHOOL LEADER Office Visit [facility] [address] [place] [address] [address] [place] [address] Michel Rea PA Status post total knee replacement using cement, right (Primary Dx); Orthopedic aftercare; Right knee pain, unspecified chronicity; Primary osteoarthritis of right knee 06/12/2024 Telephone [facility] [address] [place] [address] [address] [place] [address] Michael Motta MD 06/07/2024 Telephone [facility] [address] [place] [address] Alee Elizondo PA Referral Request 05/30/2024 5:23 AM SCHOOL LEADER - 06/05/2024 2:12 PM SCHOOL LEADER Hospital Encounter [address] [address] Michael Motta MD Primary osteoarthritis of right knee (Primary Dx); Primary osteoarthritis of other site Discharge Disposition: Discharge to home, home health skilled care 05/30/2024 7:20 AM SCHOOL LEADER Ancillary Procedure [facility] [address] [place] [phone] 05/30/2024 7:15 AM SCHOOL LEADER Ancillary Procedure [facility] [address] [place] [address] 05/30/2024 7:30 AM SCHOOL LEADER - 05/30/2024 10:15 AM SCHOOL LEADER Surgery [facility] [address] [place] [phone] Michael Motta MD RIGHT TOTAL KNEE ARTHROPLASTY 05/30/2024 7:34 AM SCHOOL LEADER Anesthesia Event [address] [address] Karen Olmstead MD Boivin, James R., MD from Last 3 Months Allergies Active Allergy Reactions Criticality Noted Date Comments Teriparatide Other (See comments) Low 09/06/2023 PT STATES IT CAUSES LEG CRAMPS AND INDIGESTION Meperidine Hives Medium 09/09/2016 Penicillins Hives Medium Medications calcium carbonate-vitamin D3 600 mg(1,500mg) -400 unit capsule otc 0 04/06/20 11 Active cholecalciferol (VITAMIN D-3) 5,000 unit capsule Take 1 capsule (5,000 Units total) by mouth daily with dinner Active clobetasoL (CLOBEX) 0.05 % lotion Apply 1 application topically 2 (two) times a day as needed (to the scalp) 09/05/19 20 Active docusate sodium (COLACE) 100 mg capsuleIndications :constipation Take 2 capsules (200 mg total) by mouth 2 (two) times a day Active cetirizine (ZyrTEC) 10 mg tabletIndications: Sinus congestion Take 1 tablet (10 mg total) by mouth daily 30 tablet 11 10/20/19 22 Active Linzess 290 mcg capsule Take 1 capsule (290 mcg total) by mouth daily 01/24/20 22 Active fluticasone propionate (FLONASE) 50 mcg/actuation nasal spray Administer 2 sprays into each nostril daily 3 each 4 07/26/19 24 Active meloxicam (MOBIC) 15 mg tabletIndications: Chronic pain of both knees TAKE 1/2 TABLET BY MOUTH DAILY 15 tablet 2 09/02/19 24 Active ketoconazole (NIZORAL) 2 % shampoo WASH SCALP 3 TIMES WEEKLY 09/18/19 24 Active bumetanide (BUMEX) 1 mg tabletIndications: Edema, lower extremity TAKE 1 TABLET BY MOUTH TWICE A DAY 180 tablet 1 11/18/19 24 Active rosuvastatin (CRESTOR) 10 mg tabletIndications: Mixed hyperlipidemia Take 1 tablet (10 mg total) by mouth daily 90 tablet 2 02/06/20 24 Active cyclobenzaprine (FLEXERIL) 5 mg tabletIndications: Primary osteoarthritis involving multiple joints TAKE 1-2 TABLETS BY MOUTH NIGHLTY NEEDED 60 tablet 2 02/10/[address] (CYMBALTA) 60 mg capsuleIndications :Moderate episode of recurrent major depressive disorder (HCC) TAKE 1 CAPSULE BY MOUTH EVERY DAY 90 capsule 2 02/14/20 24 Active gabapentin (NEURONTIN) 100 mg capsule TAKE 2 CAPSULES BY MOUTH TWICE A DAY 120 capsule 2 02/23/20 24 Active buPROPion XL (WELLBUTRIN XL) 150 mg 24 hr tabletIndications: Anxiety with Depression Take 1 tablet (150 mg total) by mouth every morning 90 tablet 2 02/20/20 24 Active montelukast (SINGULAIR) 10 mg tablet TAKE 1 TABLET BY MOUTH EVERY DAY AT NIGHT 90 tablet 1 05/02/20 24 Active potassium chloride ER 10 mEq CR tabletIndications: Venous insufficiency (chronic) (peripheral) Take 1 tablet/capsule (10 mEq total) by mouth 2 (two) times a day 180 tablet/caps ule 3 05/03/20 24 Active aspirin 81 mg enteric coated tabletIndications: Deep Vein Thrombosis Prevention Take 1 tablet (81 mg total) by mouth 2 (two) times a day for 28 days 56 tablet 06/01/20 24 Active oxyCODONE-acetamin ophen (PERCOCET) 5-325 mg per tabletIndications: DID NOT BRING BOTTLE TO SEE HOW PRESCRIBED Take 1-2 tablets by mouth every 4 (four) hours as needed for pain 50 tablet 06/01/20 24 Active fluconazole (DIFLUCAN) 150 mg tabletIndications: Yeast infection Take one tab now. Repeat in 7 days if symptoms persist. 2 tablet 07/03/20 24 Active lactobacillus combination no.9 4 billion cell capsuleIndications :Orthopedic aftercare One tablet daily 30 capsule 07/10/19 25 Active sulfaSALAzine (AZULFIDINE) 500 mg tablet Take 1 tablet (500 mg total) by mouth 2 (two) times a day 60 tablet 07/30/19 25 Active folic acid (FOLVITE) 1 mg tablet Take 2 tablets (2,000 mcg total) by mouth daily 180 tablet 1 08/28/19 25 Active hydroxychloroquine (PLAQUENIL) 200 mg tabletIndications: 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) (HCC) Take 1 tablet (200 mg total) by mouth 2 (two) times a day 180 tablet 1 08/28/19 25 Active methotrexate 2.5 mg tabletIndications: Rheumatoid Arthritis,autoimmu ne disease Take 8 tablets (20 mg total) by mouth once a week 96 tablet 1 08/28/19 25 025 Active rOPINIRole (REQUIP) 0.5 mg tabletIndications: PLMD (periodic limb movement disorder) Take 2 tablets (1 mg total) by mouth nightly 180 tablet 2 08/29/19 25 Active rOPINIRole (REQUIP) 0.5 mg tabletIndications: PLMD (periodic limb movement disorder) TAKE 2 TABLETS BY MOUTH NIGHTLY. 180 tablet 2 02/20/20 24 025 Discontin ued(Reord er) methotrexate 2.5 mg tabletIndications: autoimmune disease Take 8 tablets (20 mg total) by mouth once a week 96 tablet 07/16/19 25 025 Discontin ued(Reord er) folic acid (FOLVITE) 1 mg tablet TAKE 2 TABLETS (2,000 MCG TOTAL) BY MOUTH DAILY 180 tablet 07/16/19 25 025 Discontin ued(Reord er) hydroxychloroquine (PLAQUENIL) 200 mg tabletIndications: 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) (HCC) TAKE 1 TABLET (200 MG TOTAL) BY MOUTH 2 TIMES A DAY. 180 tablet 1 07/31/19 25 025 Discontin ued(Reord er) Active Problems Patient Care Coordination No te Formatting of this note migh t be different from the original. CAD for BIC Problem Noted Date Diagnosed Date Primary osteoarthritis 06/01/2024 Arthritis of right knee 05/30/2024 Encounter for pre-operative examination 05/07/20 Assessment & Plan (05/07/2024 8:57 PM SCHOOL LEADER): I have examined this patient and ordered the appropriate lab work/tests. I have reviewed with patient the inherent risks associated with surgery, not limited to bleeding, infection, DVT, etc. EKG was normal. Patient denies any cardiac sxs with activity. Pending her pre-operative labs, to the best of my knowledge, there is not a medical contraindication for undergoing this elective surgery with general and/or regional anesthesia. Pelvic pain 10/30/2023 Assessment & Plan (10/30/2023 11:44 PM CDT): Patient has a large pelvic lipomatosis. She has had evaluation by Urology at [facility] and has been told there is probably not anything surgical that would help with her symptoms. They have offered pelvic floor physical therapy for her discomfort which she has declined at this point. She is enquiring about other specialties that maybe able to help and or if a laparoscope is being done if they could look at her abdomen. Advised that the GI is not going to look at the abdomen and that she would have to have a surgeon who is interested in some type of an intervention so would recommend discussing this with her urologist. She is tried multiple bladder control medications and has not noticed much relief which per the urology notes was somewhat expected as the pelvic mass is pushing on the bladder repositioning it and changing it is capacity. Orthopedic aftercare 08/09/2023 Morbid obesity 08/03/2023 Assessment & Plan (05/07/2024 8:56 PM SCHOOL LEADER): Discussed the patient's BMI. The BMI is above average. BMI management plan is completed. BMI Follow-up includes: nutrition counseling, exercise counseling and education provided. Patient has an obesity-related condition (not limited to: hypertension, obstructive sleep apnea, osteoarthritis, hyperlipidemia, diabetes, etc.). Therefore, morbid obesity may be documented for patients with a BMI between 35.00-39.99. Assessment & Plan (04/21/2024 8:51 PM CDT): Discussed the patient's BMI. The BMI is above average. BMI management plan is completed. BMI Follow-up includes: nutrition counseling, exercise counseling and education provided. Patient has an obesity-related condition (not limited to: hypertension, obstructive sleep apnea, osteoarthritis, hyperlipidemia, diabetes, etc.). Therefore, morbid obesity may be documented for patients with a BMI between 35.00-39.99. Assessment & Plan (01/22/2024 8:45 PM CDT): Discussed the patient's BMI. The BMI is above average. BMI management plan is completed. BMI Follow-up includes: nutrition counseling, exercise counseling and education provided. Patient has an obesity-related condition (not limited to: hypertension, obstructive sleep apnea, osteoarthritis, hyperlipidemia, diabetes, etc.). Therefore, morbid obesity may be documented for patients with a BMI between 35.00-39.99. Assessment & Plan (01/08/2024 10:03 PM CDT): Discussed the patient's BMI. The BMI is above average. BMI management plan is completed. BMI Follow-up includes: nutrition counseling, exercise counseling and education provided. Assessment & Plan (10/30/2023 11:43 PM CDT): Patient has an obesity-related condition (not limited to: hypertension, obstructive sleep apnea, osteoarthritis, hyperlipidemia, diabetes, etc.). Therefore, morbid obesity may be documented for patients with a BMI between 35.00-39.99. Discussed the patient's BMI. The BMI is above average. BMI management plan is completed. BMI Follow-up includes: nutrition counseling, exercise counseling and education provided. Assessment & Plan (09/06/2023 9:38 AM SCHOOL LEADER): Discussed the patient's BMI. The BMI is above average. BMI management plan is completed. BMI Follow-up includes: nutrition counseling, exercise counseling and education provided. Patient has an obesity-related condition (not limited to: hypertension, obstructive sleep apnea, osteoarthritis, hyperlipidemia, diabetes, etc.). Therefore, morbid obesity may be documented for patients with a BMI between 35.00-39.99. Assessment & Plan (08/07/2023 7:51 PM SCHOOL LEADER): Discussed the patient's BMI. The BMI is above average. BMI management plan is completed. BMI Follow-up includes: nutrition counseling, exercise counseling and education provided. Patient has an obesity-related condition (not limited to: hypertension, obstructive sleep apnea, osteoarthritis, hyperlipidemia, diabetes, etc.). Therefore, morbid obesity may be documented for patients with a BMI between 35.00-39.99. Assessment & Plan (08/03/2023 7:45 AM SCHOOL LEADER): Discussed the patient's BMI. The BMI is above average. BMI management plan is completed. BMI Follow-up includes: nutrition counseling, exercise counseling and education provided. Primary osteoarthritis of right knee 07/08/2023 Assessment & Plan (05/07/2024 8:56 PM SCHOOL LEADER): Patient has arthritis in the right knee. Planning a total knee replacement with Dr. Alexus Motta on May 30 Assessment & Plan (08/03/2023 8:28 AM SCHOOL LEADER): Continue per ortho. She is seeing some improvement but it is difficult to know if the knee is rheumatoid versus osteo versus other etiology. Will await recommendations from JACQUI Raya but definitely encouraged her to become active as soon as possible. Status post total knee replacement using cement, right 05/19/2023 Assessment & Plan (06/02/2023 4:56 PM SCHOOL LEADER): Status post total knee replacement with Dr. Ge Sexton 04 May. She has just been released from rehab following up for her TCM visit. She appears to have an area of cellulitis at the incision site. She is also complaining of increased pain. Will check CBC CMP and inflammatory markers along with an x-ray. She plans to go to [facility] for the workup. Will follow up with patient after these are available as considering starting Keflex to cover skin cellulitis at this point. Reached out to JACQUI Hendrickson who actually was out of the country on vacation. He agreed with Keflex at this point but also encouraged to reach out to Dr. Sexton. Quick message was sent to him but still waiting to hear back. Will follow-up with him in the morning. Allergic rhinitis, unspecified 05/06/2023 Presence of left artificial knee joint 3 Radiculopathy, lumbar region 05/06/2023 BMI 35.0-35.9,adult 04/06/2023 Assessment & Plan (05/01/2024 1:00 PM CDT): Weight/BMI is in healthy range. Continue healthy lifestyle to maintain. Assessment & Plan (04/21/2024 8:50 PM CDT): Discussed the patient's BMI. The BMI is above average. BMI management plan is completed. BMI Follow-up includes: nutrition counseling, exercise counseling and education provided. Assessment & Plan (01/22/2024 8:44 PM CDT): Discussed the patient's BMI. The BMI is above average. BMI management plan is completed. BMI Follow-up includes: nutrition counseling, exercise counseling and education provided. Assessment & Plan (01/08/2024 10:03 PM CDT): Discussed the patient's BMI. The BMI is above average. BMI management plan is completed. BMI Follow-up includes: nutrition counseling, exercise counseling and education provided. Assessment & Plan (06/02/2023 8:27 AM SCHOOL LEADER): Discussed the patients BMI: The BMI is above average BMI management is complete. BMI follow-up includes: Nutrition Counseling and education provided Assessment & Plan (04/06/2023 9:12 AM CDT): Discussed the patient's BMI. The BMI is above average. BMI management plan is completed. BMI Follow-up includes: nutrition counseling, exercise counseling and education provided. 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 Assessment & Plan (09/06/2023 9:41 AM SCHOOL LEADER): Medications are managed by [facility] for her rheumatoid arthritis Assessment & Plan (04/06/2023 7:44 PM CDT): Managed by [facility]. Currently on Plaquenil methotrexate Orencia folic acid. Right knee pain 09/13/2022 Pelvic lipomatosis 07/18/2022 Assessment & Plan (04/21/2024 8:50 PM CDT): Patient with pelvic lipomatosis. Per the specialist no intervention is needed. They will continue to observe Assessment & Plan (01/22/2024 8:13 PM CDT): Patient has diagnosed pelvic lipomatosis. Has seen multiple specialists and at this point has been instructed that she just needs to monitor. Treating OAB symptoms. Assessment & Plan (10/30/2023 11:43 PM CDT): Patient has a large pelvic lipomatosis. She has had evaluation by Urology at [facility] and has been told there is probably not anything surgical that would help with her symptoms. They have offered pelvic floor physical therapy for her discomfort which she has declined at this point. She is enquiring about other specialties that maybe able to help and or if a laparoscope is being done if they could look at her abdomen. Advised that the GI is not going to look at the abdomen and that she would have to have a surgeon who is interested in some type of an intervention so would recommend discussing this with her urologist. She is tried multiple bladder control medications and has not noticed much relief which per the urology notes was somewhat expected as the pelvic mass is pushing on the bladder repositioning it and changing it is capacity. Assessment & Plan (09/06/2023 9:41 AM SCHOOL LEADER): Continue per . She did not tolerate overactive bladder medication so just continues to observe. Assessment & Plan (04/06/2023 7:37 PM CDT): Her lipomatosis was noted year so ago. Was following with Dr. Pate but he left so has a an appointment pending with Dr. Brown. She states currently her urinary symptoms are stable. Awaiting new providers recommendations. Assessment & Plan (01/20/2023 8:14 PM CDT): Continue per Dr. Pate's/Urology. Patient states she has had urodynamics done and still waiting to develop plans Assessment & Plan (09/12/2022 6:16 PM CDT): Awaiting recommendations from Dr. Pate. Assessment & Plan (07/18/2022 10:20 AM SCHOOL LEADER): CT revealed pelvic lipomatosis that is compressing on the bladder causing to be elongated and probably contributing to her pain as well as urinary loss. Reviewed these results with the patient. It does not appear as though there is any infection that is present so will continue to monitor closely. I informed patient I will reach out to surgeon's in the community to determine the best referral. I will be in contact with her in the next few days once this is answered. Reminded patient if she would have increased pain experienced fever chills or sweats or inability to pass urine or stool she is to had to the ER immediately for further evaluation. She is in agreement with the plan, Mixed conductive and sensori neural hearing loss of left ear with restricted hearing of right ear 02/11/2022 Assessment & Plan (09/06/2023 9:41 AM SCHOOL LEADER): No change. Dysfunction of both eustachian tubes 02/11/2022 Myalgia, lower leg 01/11/2022 PLMD (periodic limb movement disorder) Assessment & Plan (08/02/2024 11:49 AM SCHOOL LEADER): Asymptomatic Assessment & Plan (06/22/2022 10:31 AM SCHOOL LEADER): Will continue Requip 1 mg nightly Assessment & Plan (12/22/2021 10:31 AM CDT): Will continue on Requip 1 mg p.o. at bedtime. The patient was instructed that she may take Requip 0.5 mg in the evening and 0.5 mg at bedtime to see if this may help her limb restlessness. Assessment & Plan (10/19/2021 10:53 AM CDT): The patient will continue with Requip 0.5 mg p.o. at bedtime. Assessment & Plan (07/13/2021 11:25 AM SCHOOL LEADER): Due to the patient stating that she is waking for no apparent reason and the severity of the PLMD, I have started the patient on Requip 0.5 mg p.o. at bedtime. I have also ordered an iron and ferritin level. BUN and creatinine were normal on the 06/22/2021 lab work. Polypharmacy 12/30/2020 Lumbar radicular pain 09/28/2020 Assessment & Plan (09/28/2020 7:43 PM CDT): Encouraged NSAIDS (if able to safely tolerate) or Tylenol. Topical preparations like Lidocaine patches, Biofreeze, ICYHOT etc as needed. Heat, stretching Avoid long periods of sitting/laying. PT has note helped. Xrays have not been done but she has not sustained a fall/injury. Meir order MRI as has had persistent low back pain for greater than 6 weeks. Failed PT and persistent sxs. Encounter for medication monitoring 06/04/2020 Assessment & Plan (08/23/2024 10:16 AM SCHOOL LEADER): Hepatitis negative 06/2020 Tspot negative 06/2020 Continue routine lab monitoring Maintain routine eye exams throughout the duration of taking hydroxychloroquine Assessment & Plan (07/30/2024 8:24 AM SCHOOL LEADER): Hepatitis negative 06/2020 Tspot negative 06/2020 Continue routine lab monitoring Maintain routine eye exams throughout the duration of taking hydroxychloroquine Assessment & Plan (02/29/2024 8:17 AM CDT): Hepatitis negative 06/2020 Tspot negative 06/2020 Continue routine lab monitoring Maintain routine eye exams throughout the duration of taking hydroxychloroquine Assessment & Plan (11/23/2023 12:16 PM CDT): Hepatitis negative 06/2020 Tspot negative 06/2020 Continue routine lab monitoring Maintain routine eye exams throughout the duration of taking hydroxychloroquine Assessment & Plan (09/01/2023 8:34 AM SCHOOL LEADER): Hepatitis negative 06/2020 Tspot negative 06/2020 Continue routine lab monitoring Maintain routine eye exams throughout the duration of taking hydroxychloroquine Assessment & Plan (06/29/2023 2:19 PM SCHOOL LEADER): Hepatitis negative 06/2020 Tspot negative 06/2020 Continue routine lab monitoring Maintain routine eye exams throughout the duration of taking hydroxychloroquine Assessment & Plan (01/13/2023 12:33 PM CDT): Hepatitis negative 06/2020 Tspot negative 06/2020 Continue routine lab monitoring Maintain routine eye exams throughout the duration of taking hydroxychloroquine Assessment & Plan (10/13/2022 2:57 PM CDT): Hepatitis negative 06/2020 Tspot negative 06/2020 Continue routine lab monitoring Maintain routine eye exams throughout the duration of taking hydroxychloroquine Assessment & Plan (07/14/2022 2:58 PM SCHOOL LEADER): Hepatitis negative 06/2020 Tspot negative 06/2020 Continue routine lab monitoring Maintain routine eye exams throughout the duration of taking hydroxychloroquine Assessment & Plan (06/03/2022 9:58 AM SCHOOL LEADER): Hepatitis negative 06/2020 Tspot negative 06/2020 Continue routine lab monitoring Maintain routine eye exams throughout the duration of taking hydroxychloroquine Assessment & Plan (03/17/2022 3:08 PM CDT): Hepatitis negative 06/2020 Tspot negative 06/2020 Continue routine lab monitoring Maintain routine eye exams throughout the duration of taking hydroxychloroquine Assessment & Plan (12/07/2021 8:23 AM CDT): Hepatitis negative 06/2020 Tspot negative 06/2020 Continue routine lab monitoring Maintain routine eye exams throughout the duration of taking hydroxychloroquine Assessment & Plan (09/03/2021 8:29 AM SCHOOL LEADER): Hepatitis negative 06/2020 Tspot negative 06/2020 Continue routine lab monitoring Maintain routine eye exams throughout the duration of taking hydroxychloroquine Assessment & Plan (06/03/2021 4:17 PM SCHOOL LEADER): Hepatitis negative 06/2020 Tspot negative 06/2020 Continue routine lab monitoring Maintain routine eye exams throughout the duration of taking hydroxychloroquine Assessment & Plan (03/04/2021 9:29 AM CDT): Hepatitis negative 06/2020 Tspot negative 06/2020 Continue routine lab monitoring Maintain routine eye exams throughout the duration of taking hydroxychloroquine Assessment & Plan (01/30/2021 8:25 AM CDT): Hepatitis negative 06/2020 Tspot negative 06/2020 Continue routine lab monitoring Maintain routine eye exams throughout the duration of taking hydroxychloroquine Assessment & Plan (01/16/2021 12:58 PM CDT): Hepatitis negative 06/2020 Tspot negative 06/2020 Continue routine lab monitoring Maintain routine eye exams throughout the duration of taking hydroxychloroquine Assessment & Plan (12/02/2020 12:59 PM CDT): Hepatitis negative 06/2020 Tspot negative 06/2020 Continue routine lab monitoring Maintain routine eye exams throughout the duration of taking hydroxychloroquine Assessment & Plan (09/02/2020 1:16 PM SCHOOL LEADER): Hepatitis negative 06/2020 Tspot negative 06/2020 Continue routine lab monitoring Maintain routine eye exams throughout the duration of taking hydroxychloroquine Assessment & Plan (07/09/2020 12:23 PM SCHOOL LEADER): Hepatitis negative 06/2020 Tspot negative 06/2020 Continue routine lab monitoring Maintain routine eye exams throughout the duration of taking hydroxychloroquine Drug-induced constipation 08/13/2019 Assessment & Plan (05/07/2024 8:54 PM SCHOOL LEADER): Patient with chronic constipation. Has been on Colace and Linzess with good results. It appears as though her insurance is going to want to transition to a new medication called Alosetro N Hcl 0.5 MGTablet Suspect this change will happen after the first of the year. Assessment & Plan (09/12/2022 6:16 PM CDT): Continue Colace and Linzess Assessment & Plan (01/23/2022 4:59 PM CDT): Continue Linzess and good bowel care Assessment & Plan (12/24/2020 9:05 AM CDT): Continue linzess Assessment & Plan (02/18/2020 9:44 PM CDT): Continue fiber, exercise, water and linzess Assessment & Plan (08/13/2019 8:57 AM SCHOOL LEADER): On Movantik with Dr. Soto Herpes zoster without complication 12/13/2018 Assessment & Plan (12/23/2018 10:18 PM CDT): Valtex to pharmacy. She has had shingles in the past. Pre-diabetes 10/31/2018 Assessment & Plan (05/07/2024 8:55 PM SCHOOL LEADER): Pre-diabetes/hyperglycemia is a precursor to Dm. Stressed importance of working on diet (decrease your simple sugars and one carbohydrate with each meal) and increase you exercise to achieve weight loss and this will help prevent you from progressing to diabetes. Assessment & Plan (04/21/2024 8:49 PM CDT): Pre-diabetes/hyperglycemia is a precursor to Dm. Stressed importance of working on diet (decrease your simple sugars and one carbohydrate with each meal) and increase you exercise to achieve weight loss and this will help prevent you from progressing to diabetes. Assessment & Plan (01/22/2024 8:09 PM CDT): Pre-diabetes/hyperglycemia is a precursor to Dm. Stressed importance of working on diet (decrease your simple sugars and one carbohydrate with each meal) and increase you exercise to achieve weight loss and this will help prevent you from progressing to diabetes. Assessment & Plan (09/06/2023 9:40 AM SCHOOL LEADER): Pre-diabetes/hyperglycemia is a precursor to Dm. Stressed importance of working on diet (decrease your simple sugars and one carbohydrate with each meal) and increase you exercise to achieve weight loss and this will help prevent you from progressing to diabetes. Assessment & Plan (04/06/2023 7:37 PM CDT): Pre-diabetes/hyperglycemia is a precursor to Dm. Stressed importance of working on diet (decrease your simple sugars and one carbohydrate with each meal) and increase you exercise to achieve weight loss and this will help prevent you from progressing to diabetes. Assessment & Plan (01/20/2023 8:12 PM CDT): Pre-diabetes/hyperglycemia is a precursor to Dm. Stressed importance of working on diet (decrease your simple sugars and one carbohydrate with each meal) and increase you exercise to achieve weight loss and this will help prevent you from progressing to diabetes. Assessment & Plan (09/12/2022 6:11 PM CDT): Pre-diabetes/hyperglycemia is a precursor to Dm. Stressed importance of working on diet (decrease your simple sugars and one carbohydrate with each meal) and increase you exercise to achieve weight loss and this will help prevent you from progressing to diabetes. Assessment & Plan (05/02/2022 9:15 PM CDT): Pre-diabetes/hyperglycemia is a precursor to Dm. Stressed importance of working on diet (decrease your simple sugars and one carbohydrate with each meal) and increase you exercise to achieve weight loss and this will help prevent you from progressing to diabetes. Assessment & Plan (01/23/2022 4:57 PM CDT): Pre-diabetes/hyperglycemia is a precursor to Dm. Stressed importance of working on diet (decrease your simple sugars and one carbohydrate with each meal) and increase you exercise to achieve weight loss and this will help prevent you from progressing to diabetes. Assessment & Plan (09/11/2021 11:22 PM SCHOOL LEADER): Pre-diabetes/hyperglycemia is a precursor to Dm. Stressed importance of working on diet (decrease your simple sugars and one carbohydrate with each meal) and increase you exercise to achieve weight loss and this will help prevent you from progressing to diabetes. Assessment & Plan (05/29/2021 8:18 PM SCHOOL LEADER): Pre-diabetes/hyperglycemia is a precursor to Dm. Stressed importance of working on diet (decrease your simple sugars and one carbohydrate with each meal) and increase you exercise to achieve weight loss and this will help prevent you from progressing to diabetes. Assessment & Plan (12/24/2020 9:07 AM CDT): Pre-diabetes/hyperglycemia is a precursor to Dm. Stressed importance of working on diet (decrease your simple sugars and one carbohydrate with each meal) and increase you exercise to achieve weight loss and this will help prevent you from progressing to diabetes. Assessment & Plan (08/31/2020 9:34 AM SCHOOL LEADER): Pre-diabetes is a precursor to Dm. Stressed importance of working on diet (decrease your simple sugars and one carbohydrate with each meal) and increase you exercise to achieve weight loss and this will help prevent you from progressing to diabetes. Assessment & Plan (02/18/2020 9:46 PM CDT): Pre-diabetes is a precursor to Dm. Stressed importance of working on diet (decrease your simple sugars and one carbohydrate with each meal) and increase you exercise to achieve weight loss and this will help prevent you from progressing to diabetes. Assessment & Plan (08/13/2019 9:00 AM SCHOOL LEADER): This is a significant, separately identifiable problem that was evaluated and managed on the same day as the wellness exam Pre-diabetes is a precursor to Dm. Stressed importance of working on diet (decrease your simple sugars and one carbohydrate with each meal) and increase you exercise to achieve weight loss and this will help prevent you from progressing to diabetes. Assessment & Plan (04/29/2019 4:32 PM CDT): Pre-diabetes is a precursor to Dm. Stressed importance of working on diet (decrease your simple sugars and one carbohydrate with each meal) and increase you exercise to achieve weight loss and this will help prevent you from progressing to diabetes. A1c is stable. Assessment & Plan (11/01/2018 10:55 PM CDT): Pre-diabetes is a precursor to Dm. Stressed importance of working on diet (decrease your simple sugars and one carbohydrate with each meal) and increase you exercise to achieve weight loss and this will help prevent you from progressing to diabetes. Moderate episode of recurrent major depressive d isorder 10/31/2018 Assessment & Plan (05/07/2024 8:54 PM SCHOOL LEADER): Depression symptoms are stable with Wellbutrin XL 150 Cymbalta 60 b.i.d. Assessment & Plan (04/21/2024 8:50 PM CDT): Depression symptoms are stable with the Wellbutrin XL 150 and Cymbalta 60 b.i.d. Assessment & Plan (01/22/2024 8:11 PM CDT): Depression symptoms are stable with Wellbutrin and Cymbalta Assessment & Plan (09/06/2023 9:40 AM SCHOOL LEADER): Depression is stable with Wellbutrin and Cymbalta Assessment & Plan (08/03/2023 8:31 AM SCHOOL LEADER): Stable with Cymbalta 60 and Wellbutrin XL 150 Assessment & Plan (04/06/2023 7:37 PM CDT): Depression is stable with Wellbutrin and Cymbalta. She is experiencing some grief after the loss for father but it is appropriate and she states she is tolerating it okay and is involved in hospice care. Assessment & Plan (01/20/2023 8:14 PM CDT): Continue Wellbutrin and Cymbalta Assessment & Plan (12/19/2022 8:35 PM CDT): Stable with Cymbalta and Wellbutrin Assessment & Plan (09/12/2022 6:14 PM CDT): Stable with Wellbutrin and Cymbalta Assessment & Plan (01/23/2022 4:58 PM CDT): Continue Wellbutrin and Cymbalta Assessment & Plan (09/11/2021 11:26 PM SCHOOL LEADER): Continue Wellbutrin and Cymbalta Assessment & Plan (05/29/2021 8:22 PM SCHOOL LEADER): Continue Wellbutrin and Cymbalta Assessment & Plan (05/24/2021 10:39 AM SCHOOL LEADER): Continue Wellbutrin and Cymbalta Assessment & Plan (12/24/2020 9:07 AM CDT): Continue wellbutrin and cymbalta Assessment & Plan (08/31/2020 9:35 AM SCHOOL LEADER): Continue wellbutrin and cymbalta Assessment & Plan (02/18/2020 9:47 PM CDT): Stable with the Cymbalata Assessment & Plan (08/13/2019 8:59 AM SCHOOL LEADER): Stable with Cymbalta and Wellbutrin Assessment & Plan (04/29/2019 4:32 PM CDT): Stable with current regimen Assessment & Plan (12/31/2018 9:20 PM CDT): Rash may be related to stress. Stop the Prozac and transition to Cymbalta 60mg one daily. Continue the Wellburin. Monitor closely/followup in a month. Assessment & Plan (11/01/2018 10:58 PM CDT): Stable with current regimen. Med list updated to reflect the [id number] one daily and Prozac 40mg. Mixed hyperlipidemia 03/29/2018 Assessment & Plan (05/07/2024 8:54 PM SCHOOL LEADER): Encouraged patient to follow low fat/low chol diet like the Mediterranean diet. Increase good fats in the diet. Increase exercise. Monitor labs as needed. Continue Crestor 10 Assessment & Plan (04/21/2024 8:50 PM CDT): Encouraged patient to follow low fat/low chol diet like the Mediterranean diet. Increase good fats in the diet. Increase exercise. Monitor labs as needed. Continue Crestor 10 Assessment & Plan (01/22/2024 8:11 PM CDT): Encouraged patient to follow low fat/low chol diet like the Mediterranean diet. Increase good fats in the diet. Increase exercise. Monitor labs as needed. Continue pravastatin Assessment & Plan (01/08/2024 10:04 PM CDT): Encouraged patient to follow low fat/low chol diet like the Mediterranean diet. Increase good fats in the diet. Increase exercise. Monitor labs as needed. Continue statin Assessment & Plan (09/06/2023 9:42 AM SCHOOL LEADER): Encouraged patient to follow low fat/low chol diet like the Mediterranean diet. Increase good fats in the diet. Increase exercise. Monitor labs as needed. Continue pravastatin Assessment & Plan (04/06/2023 7:43 PM CDT): Encouraged patient to follow low fat/low chol diet like the Mediterranean diet. Increase good fats in the diet. Increase exercise. Monitor labs as needed. Continue pravastatin Assessment & Plan (01/20/2023 8:14 PM CDT): Encouraged patient to follow low fat/low chol diet like the Mediterranean diet. Increase good fats in the diet. Increase exercise. Monitor labs as needed. Continue pravastatin Assessment & Plan (09/12/2022 6:14 PM CDT): Encouraged patient to follow low fat/low chol diet like the Mediterranean diet. Increase good fats in the diet. Increase exercise. Monitor labs as needed. Continue pravastatin Assessment & Plan (05/02/2022 9:15 PM CDT): Encouraged patient to follow low fat/low chol diet like the Mediterranean diet. Increase good fats in the diet. Increase exercise. Monitor labs as needed. Continue pravastatin Assessment & Plan (01/23/2022 4:59 PM CDT): Encouraged patient to follow low fat/low chol diet like the Mediterranean diet. Increase good fats in the diet. Increase exercise. Monitor labs as needed. Reviewed the importance of statin She has been holding it due to her legs feeling heavy she thinks her legs do feel different. Discussed checking back in with Cardio and may be she could do it a couple times a week or every other day to still get some benefit but make it more tolerable. Assessment & Plan (11/15/2021 6:42 PM CDT): Encouraged patient to follow low fat/low chol diet like the Mediterranean diet. Increase good fats in the diet. Increase exercise. Monitor labs as needed. Continue statin Assessment & Plan (09/11/2021 11:26 PM SCHOOL LEADER): Encouraged patient to follow low fat/low chol diet like the Mediterranean diet. Increase good fats in the diet. Increase exercise. Monitor labs as needed. Continue statin Assessment & Plan (05/29/2021 8:22 PM SCHOOL LEADER): Encouraged patient to follow fat/low chol diet like the Mediterranean diet. Increase good fats in the diet. Increase exercise. Monitor labs as needed. Continue statin Assessment & Plan (05/24/2021 10:39 AM SCHOOL LEADER): Encouraged patient to follow fat/low chol diet like the Mediterranean diet. Increase good fats in the diet. Increase exercise. Monitor labs as needed. Continue statin Assessment & Plan (12/24/2020 9:07 AM CDT): Encouraged patient to follow fat/low chol diet like the Mediterranean diet. Increase good fats in the diet. Increase exercise. Monitor labs as needed. Continue statin Assessment & Plan (08/31/2020 9:34 AM SCHOOL LEADER): Encouraged patient to follow fat/low chol diet like the Mediterranean diet. Increase good fats in the diet. Increase exercise. Monitor labs as needed. Continue statin Assessment & Plan (02/18/2020 9:46 PM CDT): Encouraged patient to continue low fat/low chol diet. Continue exercise. Increase good fats in the diet. Monitor labs as needed. Assessment & Plan (08/13/2019 8:59 AM SCHOOL LEADER): Encouraged patient to continue low fat/low chol diet. Continue exercise. Increase good fats in the diet. Monitor labs as needed. Assessment & Plan (04/29/2019 4:31 PM CDT): Stable. Continue current statin Assessment & Plan (11/01/2018 10:55 PM CDT): Encouraged patient to continue low fat/low chol diet. Continue exercise. Increase good fats in the diet. Monitor labs as needed. Venous insufficiency (chronic) (peripheral) 09/02 Gastroesophageal reflux disease without esophagi tis 09/09/2016 Assessment & Plan (04/21/2024 8:50 PM CDT): Continue PPI p.r.n.. She states she is almost completely eliminated the need for medication Assessment & Plan (01/22/2024 8:11 PM CDT): Reflux symptoms have increased greatly since having the hiatal hernia repair with Dr. Faye. Still has asked effects as needed Assessment & Plan (01/08/2024 10:02 PM CDT): Status post hiatal hernia repair. GERD symptoms have resolved. She stopped the PPI and sucralfate. States she is feeling great. Continue per Dr. Faye general surgeon. If she has any further problems or concerns she can call at any time Assessment & Plan (10/30/2023 11:41 PM CDT): Continue per GI. Has laparoscoped pending for her GERD symptoms in near future Assessment & Plan (09/06/2023 9:40 AM SCHOOL LEADER): Continue PPI Assessment & Plan (04/06/2023 7:36 PM CDT): Continue PPI p.r.n. Assessment & Plan (01/20/2023 8:13 PM CDT): Continue PPI Assessment & Plan (09/12/2022 6:13 PM CDT): Continue PPI p.r.n. Assessment & Plan (06/03/2022 3:40 PM SCHOOL LEADER): Pyrosis poorly controlled on Nexium. Pt has already held meloxicam which was very reasonable. She expressed concern that perhaps mtx is contributing. At this time recommend that she reach out to GI for recommendations. Should they express concern for the mtx, then we could consider switching to SQ - she will let us know if this needs to be done. Assessment & Plan (01/23/2022 4:58 PM CDT): Continue PPI Assessment & Plan (09/11/2021 11:26 PM SCHOOL LEADER): Continue PPI Assessment & Plan (12/24/2020 9:05 AM CDT): Continue PPI Assessment & Plan (02/18/2020 9:45 PM CDT): Continue PPI. Saw Dr. Linton for increased GERD sxs. If persist, encouraged to followup again with Dr. Linton. Assessment & Plan (08/13/2019 8:58 AM SCHOOL LEADER): Stable with PPI Assessment & Plan (04/29/2019 4:30 PM CDT): stable Assessment & Plan (11/01/2018 7:30 AM CDT): Stable with the Omeprazole. Discussed GERD at length including anatomy, behavioral changes (raise HOB, meal timings), dietary changes and medication options. Reviewed risks, benefits alternatives, side effects and proper use. Followup if sxs worsen or has hematochezia or hematemeis. Varicose veins of bilateral lower extremities wi th pain 08/24/2016 AKERS (dyspnea on exertion) 12/08/2015 Overview (10/09/2016): AKERS (dyspnea on exertion) Assessment & Plan (06/22/2022 10:30 AM SCHOOL LEADER): Patient is not currently using inhalers. She has an albuterol inhaler that she may use on a p.r.n. basis and up to 4 times a day as needed for symptom control. The patient was told to resume the Dulera if she notice any worsening of her symptoms Assessment & Plan (12/22/2021 10:30 AM CDT): The methacholine challenge recently performed does not support diagnosis of asthma. The patient and I discussed a formal pulmonary exercise study. The patient like to hold off at this time.The patient was instructed to continue albuterol on a prn basis. The patient would like to decrease Dulera to see if breathing symptoms worsen. Patient was instructed if breathing worsens to restart Dulera. Assessment & Plan (05/03/2021 7:55 PM CDT): See lower extremity edema. OWEN on CPAP 10/14/2015 Assessment & Plan (08/02/2024 11:49 AM SCHOOL LEADER): Due to the patient stating the pressure is too high and having ear fullness, I have decreased the pressure to 7-10 cm water pressure. I also encouraged the patient to continue with her allergy medication in the morning and Flonase at night. The patient was instructed to call into the office if the pressure needs to be readjusted. She denied need for supplies. DME [facility] Assessment & Plan (05/07/2024 8:55 PM SCHOOL LEADER): Continue with CPAP. Assessment & Plan (04/21/2024 8:49 PM CDT): Continue per Dr. Dunn. Has all her needed supplies for CPAP which she is using every night. Continue with Requip 0.5 mg HS for restless leg Assessment & Plan (01/22/2024 8:08 PM CDT): Continue CPAP per Dr. Dunn Assessment & Plan (09/06/2023 9:40 AM SCHOOL LEADER): Continue CPAP Assessment & Plan (06/21/2023 10:14 AM SCHOOL LEADER): Patient continue to wear her CPAP at auto titrating range of 7-20 cm water pressure while sleeping. Her DME is [facility]. I did advise the patient to move her CPAP to her recliner. The patient verbalized she would do it tonight. Assessment & Plan (04/06/2023 7:36 PM CDT): Continue CPAP Assessment & Plan (01/20/2023 8:12 PM CDT): Continue CPAP. Has needed supplies Assessment & Plan (09/12/2022 6:07 PM CDT): Continue CPAP Assessment & Plan (06/22/2022 10:31 AM SCHOOL LEADER): Will continue CPAP therapy at an auto titrating range of 7-20 cm water pressure. Denied need for supplies. [facility] Assessment & Plan (05/02/2022 9:15 PM CDT): Continue CPAP has needed supplies Assessment & Plan (01/23/2022 4:57 PM CDT): Continue CPAP. Has supplies as needed. Assessment & Plan (12/22/2021 10:30 AM CDT): Due to the patient stating that she does not feel like there is enough pressure in her CPAP machine and that her events remain high, I have increased his CPAP pressure to 7-20 cm water pressure. The patient also was ordered an SD card. The patient was ordered an overnight pulse ox on CPAP therapy to evaluate morning headaches. Assessment & Plan (10/19/2021 10:53 AM CDT): Patient will continue with CPAP therapy at 13 cm water pressure. Patient denied need for supplies. DME [employer] [facility]. Patient is benefitting CPAP Assessment & Plan (09/11/2021 11:22 PM SCHOOL LEADER): Continue CPAP. Patient has all needed supplies. Assessment & Plan (07/13/2021 11:27 AM SCHOOL LEADER): Due to the patient stating she does not have enough pressure in her machine, I have increased the pressure to 13 cm water pressure. The patient denied need for for supplies. DME company [facility]. Have also ordered a new smart card set at 13 cm water pressure. Benefitting from CPAP therapy Assessment & Plan (05/29/2021 8:14 PM SCHOOL LEADER): Continue CPAP. Assessment & Plan (02/17/2021 11:09 AM CDT): The patient continues to be compliant with her CPAP at 8 cm water pressure. She has developed worsening daytime hypersomnia. She also has morning headaches and dry mouth. I have recommended proceeding with a CPAP titration study starting at 8 cm water pressure. Her DME is [facility]. Assessment & Plan (12/24/2020 9:04 AM CDT): Continue CPAP. Would like to see Pulm/sleep at [facility] as difficulty getting in consistently at [facility] and most of her care is now [facility] Assessment & Plan (02/18/2020 9:44 PM CDT): Continue CPAP Assessment & Plan (08/13/2019 8:46 AM SCHOOL LEADER): Using the CPAP. Has equipment as needed. Dr. Villafuerte Assessment & Plan (11/01/2018 10:52 PM CDT): Continue CPAP. Using nightly as directed with good results Hemangioma of liver 10/14/2015 Overview (09/12/2022): This lesion was incidentally found on 06/2014 CTA chest. 07/2014 MRI Abdomen with and without contrast: caudate lobe 4.6 x 4.3 x 5.8 mass characteristic of hemangioma, slightly atypical. 01/2015: 4.4 x 4.8 stable and c/w angioma 01/2016: 4.6 cm similar and unchanged 08/2016: CT angio ab/pelvis without contrast: 5.4 cm lesion, incompletely characterized 03/2021: 4.7 cm lesion characterized previously as hemangioma 06/2022: 5.6 x 5.1 x 4.6cm mass unchanged. Osteoarthritis, multiple sites 10/14/2015 Overview (02/06/2021): 02/2021 Rt knee XR: unremarkable 02/2021 Lt knee XR: Tricompartmental OA, moderate in medial and patellofemoral compartments and mild in lateral compartment. Chondrocalcinosis is noted. Assessment & Plan (08/23/2024 10:16 AM SCHOOL LEADER): 02/2021 XR L knee with mild to moderate OA, now s/p B TKA. Following with ortho as planned. Assessment & Plan (07/30/2024 11:23 AM SCHOOL LEADER): 02/2021 XR L knee with mild to moderate OA, now s/p B TKA. Following with ortho as planned. Assessment & Plan (02/29/2024 9:27 AM CDT): 02/2021 XR L knee with mild to moderate OA, now s/p L TKA. Following with ortho now for R knee pain and had inj yesterday. Assessment & Plan (11/24/2023 9:59 AM CDT): 02/2021 XR L knee with mild to moderate OA, now s/p L TKA. Now the R knee is giving her the greatest trouble, following with ortho and last given knee injection on 10/02. States that they are now planning to pursue R TKA and has follow up with her surgeon in March. Assessment & Plan (09/01/2023 3:42 PM SCHOOL LEADER): 02/2021 XR L knee with mild to moderate OA, R knee negative. Had injections with ortho without benefit, now s/p L TKA. Assessment & Plan (06/30/2023 12:46 PM SCHOOL LEADER): 02/2021 XR L knee with mild to moderate OA, R knee negative. Had injections with ortho without benefit, now s/p L TKA and recovering well. Assessment & Plan (01/13/2023 3:43 PM CDT): 02/2021 XR L knee with mild to moderate OA, R knee negative. Had injections with ortho without benefit, planning return to ortho to discuss possible TKA. Unable to afford PT. Can continue Tylenol Arthritis, not to exceed 4 g/d. Assessment & Plan (10/14/2022 2:51 PM CDT): 02/2021 XR L knee with mild to moderate OA, R knee negative. Had recent injections with ortho withput benefit, planning for visco on Tuesday. Unable to afford PT. Can continue Tylenol Arthritis, not to exceed 4 g/d. Assessment & Plan (07/15/2022 1:41 PM SCHOOL LEADER): 02/2021 XR L knee with mild to moderate OA, R knee negative. Had injections with ortho with benefit. Unable to afford PT. Can continue Tylenol Arthritis, not to exceed 4 g/d. Assessment & Plan (06/03/2022 9:58 AM SCHOOL LEADER): 02/2021 XR L knee with mild to moderate OA, R knee negative. Had recent injections with ortho with benefit. Unable to afford PT, handout reviewing exercises provided today. Can continue Tylenol Arthritis, not to exceed 4 g/d. Assessment & Plan (03/18/2022 11:22 AM CDT): 02/2021 XR L knee with mild to moderate OA, R knee negative. Had recent injections with ortho with benefit. Unable to afford PT, handout reviewing exercises provided today. Can continue Tylenol Arthritis, not to exceed 4 g/d. Assessment & Plan (01/23/2022 5:01 PM CDT): Continue topicals Tylenol as tolerated Assessment & Plan (12/07/2021 9:03 AM CDT): 02/2021 XR L knee with mild to moderate OA, R knee negative. Noted 75% improvement in L knee pain after IA triamcinolone in April, unfortunately only experienced benefit for a week of her injection last month. Still unable to return to PT due to cost. She is walking in the pool which she does feel has started helping. Can continue Tylenol Arthritis, not to exceed 4 g/d. Recommend she return to ortho for evaluation. Assessment & Plan (09/03/2021 11:27 AM SCHOOL LEADER): XR L knee with mild to moderate OA, R knee negative. Noted 75% improvement in L knee pain after IA triamcinolone in April. Discussed that we could consider repeat L knee injection as well as a R knee injection; she does not feel symptoms are significant enough to warrant this at present, she would like to monitor her pain with the weather change. May consider return to PT in the future if financially able. Assessment & Plan (06/04/2021 10:27 AM SCHOOL LEADER): XR L knee with mild to moderate OA, R knee negative. Notes 75% improvement in L knee pain after IA triamcinolone in April. Continue to monitor. Assessment & Plan (03/05/2021 10:15 AM CDT): XR L knee with mild to moderate OA, R knee negative. Currently B knee pain is her greatest complaint and though she previously declined injections, she is now interested in pursuing this. Risks of IA injections reviewed, including infection and bleeding risk. Will plan for US guided triamcinolone injection of the L knee to start, and pending this will arrange for R knee injection. Will also trial switch from meloxicam to nabumetone to see if this offers greater benefit, pt aware of risks including GI upset, PUD, nephrotoxicity, and increased cardiovascular risk for patients 65yo+. Follow up in 6-8 weeks to reassess or sooner as needed. Assessment & Plan (01/30/2021 2:02 PM CDT): 10/27/2017 XR L knee: mild tricompartmental OA. Knee pain is worsening, especially with stairs. Will provide orders to get updated knee xrays. May consider steroid injections. Will continue meloxicam as above. Assessment & Plan (01/16/2021 12:58 PM CDT): 10/27/2017 XR L knee: mild tricompartmental OA. Will continue meloxicam as above. Assessment & Plan (12/24/2020 9:05 AM CDT): Continue Mobic. Continue with Pain Management/injections as she is noting improvment Assessment & Plan (12/02/2020 12:59 PM CDT): 10/27/2017 XR L knee: mild tricompartmental OA. Will continue meloxicam as above. Assessment & Plan (09/03/2020 12:23 PM SCHOOL LEADER): 10/27/2017 XR L knee: mild tricompartmental OA. Will continue meloxicam as above. Assessment & Plan (07/09/2020 12:24 PM SCHOOL LEADER): 10/27/2017 XR L knee: mild tricompartmental OA. Will continue meloxicam as above. In the future may consider trial of PT. 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 ([facility]) 11/17/2013 Overview (03/15/2024): Imaging 01/16/2021 XR R foot - mild plantar calcaneal enthesopathy, moderate 1st MTP OA, pes planus XR L foot - mild plantar calcaneal enthesopathy, pes planus 02/04/2021 XR L knee - mild to moderate OA XR R knee - unremarkable US R foot/ankle 01/20/21: Grade 1 power Doppler within the tibiotalar joint Trace effusion of the peroneal longus tendon sheath with possible lateral recess effusion as well but incompletely visualized Trace effusion of the posterior tibialis tendon sheath Large osteophyte of the dorsal 1st metatarsal Grade 1 effusion and power Doppler of the 2nd MTPJ Grade 1 power Doppler of the 3rd MTPJ US R foot/ankle 10/21/22: Grade 1 effusion with grade 2 power Doppler of the 1st MTPJ with hypertrophic spurring Grade 1 effusion with grade 1 power Doppler of the 2nd MTPJ Peritendinous power Doppler around the Achilles tendon Findings on examination are compared to prior exam dated 01/20/21 showing improvement in some of the tendon sheath effusions and power Doppler of the tibiotalar joint and 3rd MTP joint. There is some increased inflammatory signal within the 1st MTP with continued osteophytosis with stable changes of the 2nd MTPJ. New peritendinous power Doppler along the Achilles. Recommend clinical correlation. US R foot/ankle 03/15/24: Grade 2 effusion of the 1st MTPJ with spurring and grade 1 power Doppler Enlargement of the plantar fascia to 0.46 cm suggesting possible plantar fasciitis Findings are compared to previous exam dated 10/20/22 showing fairly stable findings within the 1st MTPJ with improvement in effusion and power Doppler of the 2nd MPTJ. New enlargement of plantar fascia since previous examination. Assessment & Plan (08/23/2024 12:54 PM SCHOOL LEADER): Moderate cdai with report of increasing pain, stiffness, and swelling in the time that she has been without Orencia. Failed trial of ssz since last visit due to GI upset. As she is now enrolled in the M3P program she is eager to resume Orencia, will check benefits. She has 5 doses of Orencia at home now, so recommend that she go ahead and resume now. Continue methotrexate 20 mg weekly, folic acid 2 mg daily, and hydroxychloroquine 200 mg BID. Labs today as below. Follow up in 3 months or sooner as needed. Assessment & Plan (07/30/2024 11:22 AM SCHOOL LEADER): Moderate cdai with report of increased morning pain and stiffness in the time that she has been without Orencia. Discussed options to try to obtain Orencia includin) Medicare Part D Prescription Plan which offers the patient the opportunity to pay their cost-sharing (up to $2,000) monthly over the course of the year, or 2) contact Social Security to see if you are eligible for the LIS program (Low Income Subsidy) which would help with the prescription costs. Alternatively, we could instead try triple therapy by adding sulfasalazine which should be inexpensive. Reviewed potential AE of sulfasalazine including GI upset and serologic abnormalities. After reviewing these options, she does prefer to try sulfasalazine. 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 Discussed that for next month's visit we could plan for a phone visit with labs near her home ([facility] in [place]), but the following month will need to plan for an in person visit. She expressed understanding and agreement with this plan. Continue methotrexate 20 mg weekly, folic acid 2 mg daily, and hydroxychloroquine 200 mg BID. Labs today as below. Assessment & Plan (05/07/2024 8:55 PM SCHOOL LEADER): Managed by [facility]. Currently on Plaquenil and methotrexate and Orencia folic acid Mobic and gabapentin. 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 Assessment & Plan (04/21/2024 8:49 PM CDT): Continue per [facility]. They currently manage her rheumatoid arthritis Assessment & Plan (02/29/2024 9:26 AM CDT): Moderate cdai with report of increased morning pain and stiffness. States that she cannot say whether Orencia has offered benefit at this time. Discussed obtaining a repeat R foot US to reevaluate, she will be contacted with results. In the meantime continue methotrexate 20 mg weekly, folic acid 2 mg daily, hydroxychloroquine 200 mg BID, and Orencia and monitor. Labs today as below. Assessment & Plan (01/22/2024 8:17 PM CDT): Continue per [facility] as they manage her condition. Assessment & Plan (11/24/2023 9:58 AM CDT): Low cdai without inflammatory sounding pain. Will continue methotrexate 20 mg weekly, folic acid 2 mg daily, hydroxychloroquine 200 mg BID, and Orencia and monitor. Labs today as below. Follow up in 3 months or sooner as needed. Assessment & Plan (09/06/2023 9:42 AM SCHOOL LEADER): Rheumatoid arthritis is managed by [facility]. Currently on Plaquenil methotrexate Orencia and folic acid Assessment & Plan (09/01/2023 3:39 PM SCHOOL LEADER): Overall stable without notable synovitis and no inflammatory sounding pain. Will continue methotrexate 20 mg weekly, folic acid 2 mg daily, hydroxychloroquine 200 mg BID, and Orencia and monitor. Labs today as below. Follow up in 3 months or sooner as needed. Assessment & Plan (08/03/2023 8:28 AM SCHOOL LEADER): Continue with rheumatology. Assessment & Plan (06/30/2023 12:43 PM SCHOOL LEADER): Overall stable without notable synovitis and no inflammatory sounding pain. Will continue methotrexate 20 mg weekly, folic acid 2 mg daily, hydroxychloroquine 200 mg BID, and Orencia and monitor. Labs today as below. Assessment & Plan (06/02/2023 4:49 PM SCHOOL LEADER): Continue per Rheumatology Assessment & Plan (04/06/2023 7:35 PM CDT): Continue per Rheumatology. She has been in discussion with them on what medications to stop prior to her knee surgery. She states she was told to take all of her medicines accept the Orencia. Assessment & Plan (01/20/2023 8:12 PM CDT): Continue per Rheumatology [facility] Assessment & Plan (01/13/2023 3:42 PM CDT): Low cdai. She reports significant benefit with Orencia and fortunately the nausea/vomiting she initially reported has resolved. Will continue methotrexate 20 mg weekly, folic acid 2 mg daily, hydroxychloroquine 200 mg BID, and Orencia and monitor. Labs today as below. Plan for follow up in 3-4 months or sooner as needed. Assessment & Plan (10/14/2022 2:50 PM CDT): Moderate cdai. She flared in June requiring IM triamcinolone to which she noted significant improvement. She called again last month reporting a flare, due to distance from office requested prednisone, unfortunately denied benefit. Discussed that at this time, the question is whether her pain is due to active RA. Recommend obtaining a repeat R foot/ankle US and if it does show active disease, then will recommend a change from Rinvoq. Given seropositivity, would likely consider Orencia, ideally IV but, given distance from office, more likely SQ. For now continue methotrexate 20 mg weekly, folic acid 2 mg daily, Rinvoq 15 mg daily, hydroxychloroquine 200 mg BID, and cyclobenzaprine 5 mg qhs. Labs today as below. Plan for follow up in 3 months or sooner as needed. Assessment & Plan (09/12/2022 6:06 PM CDT): Continue with [facility] Assessment & Plan (07/15/2022 1:41 PM SCHOOL LEADER): Low cdai. Significantly improved after IM triamcinolone Will continue methotrexate 20 mg weekly, folic acid 2 mg daily, Rinvoq 15 mg daily, hydroxychloroquine 200 mg BID, and cyclobenzaprine 5 mg qhs. Labs today as below. No concern from our standpoint re: these meds and the pelvic lipomatosis. Plan for follow up in 3 months or sooner as needed. Assessment & Plan (06/03/2022 3:37 PM SCHOOL LEADER): High cdai. Previously felt well controlled with current regimen. Due to burden of disease will give patient a triamcinolone injection. Patient made aware of SE of steroids including but not limited to HTN, increased blood glucose, cataracts, glaucoma, AVN, and osteoporosis with snf use. Should she flare again shortly after the steroid, then will need to discuss a change in her maintenance regimen. For now will continue methotrexate 20 mg weekly, folic acid to 2 mg daily, Rinvoq 15 mg daily, hydroxychloroquine 200 mg BID, and cyclobenzaprine 5 mg qhs. Labs today as below. Plan for follow up in 6 weeks or sooner as needed. Assessment & Plan (03/18/2022 11:21 AM CDT): Stable. Denies inflammatory sounding joint pain. Will try reducing methotrexate dose from 25 mg to 20 mg weekly and monitor the nausea. Continue folic acid to 2 mg daily, Rinvoq 15 mg daily, hydroxychloroquine 200 mg BID, and cyclobenzaprine 5 mg qhs. Labs today as below. Plan for follow up in 3 months or sooner as needed. Assessment & Plan (01/23/2022 4:57 PM CDT): Continue management per [facility] Assessment & Plan (12/07/2021 9:02 AM CDT): Low cdai. Denies inflammatory sounding joint pain. Continue methotrexate 25 mg weekly, folic acid to 2 mg daily, Rinvoq 15 mg daily, hydroxychloroquine 200 mg BID, and cyclobenzaprine 5 mg qhs and monitor. Labs today as below. Plan for follow up in 3 months or sooner as needed. Assessment & Plan (09/11/2021 11:14 PM SCHOOL LEADER): Continue per [facility] Assessment & Plan (09/03/2021 11:25 AM SCHOOL LEADER): cdai = 12. Pt suspects increased joint pain 08/05, she would like to monitor her pain as the weather improves with spring. Will plan to continue methotrexate 25 mg weekly, folic acid to 2 mg daily, Rinvoq 15 mg daily, hydroxychloroquine 200 mg BID, and cyclobenzaprine 5 mg qhs and monitor. Labs today as below. Plan for follow up in 3 months or sooner as needed. Assessment & Plan (06/04/2021 10:25 AM SCHOOL LEADER): Low cdai. Denies inflammatory sounding pain at present. Will plan to continue methotrexate 25 mg weekly, folic acid to 2 mg daily, Rinvoq 15 mg daily, hydroxychloroquine 200 mg BID, and cyclobenzaprine 5 mg qhs and monitor. Labs today as below. Plan for follow up in 3 months or sooner as needed. Assessment & Plan (05/31/2021 9:15 PM SCHOOL LEADER): Continue per Rheumatology Assessment & Plan (05/29/2021 8:13 PM SCHOOL LEADER): Continue per Rheumatology. Currently on Plaquenil methotrexate and folic acid. Assessment & Plan (05/24/2021 10:38 AM SCHOOL LEADER): Continue per Rheumatology Assessment & Plan (03/05/2021 10:11 AM CDT): Recent radiographs of the bilateral feet revealed mild calcaneal enthesophytes with OA changes of 1st MTP joint of the right foot. Her right foot/ankle ultrasound showed mild effusions of the peroneal longus tendon sheath and posterior tibialis tendon sheath with OA changes of 1st MTP joint and minor inflammatory changes of the 2nd and 3rd MTP joints. It is notable that she denied any improvement after prednisone taper starting at 20 mg daily, which goes against inflammatory etiology of her pain, favor 2/2 OA. Will plan to continue methotrexate 25 mg weekly, folic acid to 2 mg daily, Rinvoq 15 mg daily, hydroxychloroquine 200 mg BID, and cyclobenzaprine 5 mg qhs and allow time for effect. Will monitor the headaches, and if persistent could consider decreasing the dose of methotrexate to 20 mg weekly to see if they improve. Assessment & Plan (01/30/2021 4:04 PM CDT): Recent radiographs of the bilateral feet revealed mild calcaneal enthesophytes with OA changes of 1st MTP joint of the right foot. Her right foot/ankle ultrasound showed mild effusions of the peroneal longus tendon sheath and posterior tibialis tendon sheath with OA changes of 1st MTP joint and minor inflammatory changes of the 2nd and 3rd MTP joints. Has had some mild increase in hand discomfort/swelling over past few days and right ankle continues to cause pain/swelling worse by the afternoon. Is now on 5mg prednisone and continued meloxicam daily - has been having GI upset. Discussed increasing methotrexate to 25 mg weekly and increasing folic acid to 2 mg daily to decrease GI symptoms. Will hold meloxicam until she completes the prednisone taper. Continue 15mg rinvoq, 200mg HCQ BID and cyclobenzaprine 5mg qhs. Return in 4 weeks. Sooner if needed. Seen with Dr. Grewal. Assessment & Plan (01/16/2021 1:31 PM CDT): Moderate cdai. Flare of joint pain and swelling with notable increase in both tenderness and synovitis by exam. Will continue Rinvoq 15 mg daily, methotrexate 17.5 mg po weekly with folic acid daily, hydroxychloroquine 200 mg bid, meloxicam 15 mg daily, and cyclobenzaprine 5 mg qHS prn. Due to flare will begin prednisone taper. Patient was advised of the potential side effects of steroids, including but not limited to increased blood sugar, increased blood pressure, weight gain, avascular necrosis, glaucoma, cataracts, and/or osteoporosis. Will start prednisone 20 mg daily and taper by 5 mg every 5 days. Obtain XR of B feet and US of the R foot. Plan for follow up in 4 weeks to reassess or sooner as needed. Assessment & Plan (12/24/2020 9:07 AM CDT): Continue per [facility] Sxs are the best that they have been controlled in years. Assessment & Plan (12/03/2020 10:44 AM CDT): Low cdai. Overall feels improved and stable. Will continue Rinvoq 15 mg daily, methotrexate 17.5 mg po weekly with folic acid daily, hydroxychloroquine 200 mg bid, meloxicam 15 mg daily, and cyclobenzaprine 5 mg qHS prn. Labs today as below. Plan for follow up in 3 months to reassess or sooner as needed. Assessment & Plan (09/03/2020 12:22 PM SCHOOL LEADER): Low cdai. Continues to feel improved with the addition of meloxicam 15 mg daily and cyclobenzaprine qHS prn. Her exam reveals widespread soft tissue tenderness without significant synovitis. At this time suspect that the bulk of her pain complaints are 2/2 OA and possible fibromyalgia. Complains of GI upset after increasing hydroxychloroquine to 200 mg bid, will decrease back to once daily dosing now and monitor for resolution of GI symptoms - discussed that this could also be caused by meloxicam. Otherwise continue Rinvoq 15 mg daily, methotrexate 17.5 mg po weekly with folic acid daily, meloxicam 15 mg daily, and cyclobenzaprine 5 mg qHS prn. Labs today. Plan for follow up in 3 months to reassess or sooner as needed. Assessment & Plan (08/31/2020 9:34 AM SCHOOL LEADER): Continue per [facility] Assessment & Plan (07/09/2020 12:22 PM SCHOOL LEADER): 64yoF with a h/o seropositive RA diagnosed around 2008. She has previously failed treatment with leflunomide and Humira. Discontinued prednisone 2.5 mg every other day since last visit without issue. Historically her joint complaints flare with weather changes and currently she notes widespread joint pain, much of which sounds mechanical. Since last visit we added meloxicam 15 mg daily and cyclobenzaprine qHS prn which have helped. Her exam reveals widespread tenderness without significant synovitis. Labs obtained last month were unremarkable. At this time suspect that the bulk of her pain complaints are 2/2 OA and possible fibromyalgia. However, will try increasing hydroxychloroquine to a more therapeutic dose of 200 mg bid to see if this provides greater benefit. Otherwise continue Rinvoq 15 mg daily, methotrexate 17.5 mg po weekly with folic acid daily, meloxicam 15 mg daily, and cyclobenzaprine 2.5- 5 mg qHS prn. Plan for follow up in 8 weeks to reassess or sooner as needed. Will obtain repeat labs at that time. Assessment & Plan (06/04/2020 11:14 AM SCHOOL LEADER): 64yoF with a h/o seropositive RA diagnosed around 2008. She has previously failed treatment with leflunomide and Humira. Current treatment regimen, since September 2019, is Rinvoq 15 mg daily, methotrexate 17.5 mg po weekly with folic acid daily, hydroxychloroquine 200 mg once daily, and prednisone 2.5 mg every other day. At baseline she feels stable with this regimen and noticed substantial benefit after Humira was switched to Rinvoq. Historically her joint complaints flare with weather changes and currently she notes widespread joint pain, much of which sounds mechanical. Her exam reveals widespread tenderness without significant synovitis. At this time will check serologies as below and recommend beginning a trial of meloxicam 15 mg daily to see if this helps with her current joint complaints. She also exhibits some muscular pain and is having difficulty sleeping, if after a week or two of meloxicam this persists, then will begin cyclobenzaprine 5-10 mg qHS prn. Otherwise continue current regimen and monitor. Plan for follow up in 4 weeks or sooner as needed. Assessment & Plan (05/14/2020 9:33 PM SCHOOL LEADER): Refer to new [facility] as Dr. Soto has . Assessment & Plan (02/18/2020 9:46 PM CDT): Continue per Rheum Assessment & Plan (08/13/2019 8:59 AM SCHOOL LEADER): Continue per Dr. Soto Assessment & Plan (04/29/2019 4:31 PM CDT): Continue per Dr. Soto Assessment & Plan (11/01/2018 10:58 PM CDT): Dr. Soto increased the MTX and decreased the steroid. Pt can see improvement. Continue per Rheum. Gastrointestinal hemorrhage 11/17/2013 Overview (10/07/2016): GI bleeding Age-related osteoporosis wit hout current pathological fracture 11/17/2013 Overview (06/30/2023): OSTEOPOROSIS NOS 01/27/2021 DEXA: Lspine -1.8, L femoral neck -1.9, L total hip -1.2, R femoral neck -2.3, R total hip -1.0, FRAX major 32% and hip 7% 2022 - DEXA: Lspine BMD 0.809 Tscore -2.2, L femoral neck 0.585 Tscore -2.4, total L hip 0.809 Tscore -1.1, R femoral neck 0.521 TScore -3.0, total R hip 0.736 Tscore -1.7. Lspine worse by 4.4%, L hip improved, R hip worse by 10.8% Assessment & Plan (01/22/2024 8:08 PM CDT): Patient with osteoporosis. Has not been responding to Reclast. Forteo was tried by [facility] and she could not tolerate. Has an appointment with Dr. Moran that is scheduled for October of 2024. Continue vitamin-D and exercise at this point Assessment & Plan (11/24/2023 9:54 AM CDT): DEXA 04/2023: Lspine BMD 0.809 Tscore -2.2, L femoral neck 0.585 Tscore -2.4, total L hip 0.809 Tscore -1.1, R femoral neck 0.521 TScore -3.0, total R hip 0.736 Tscore -1.7. Lspine worse by 4.4%, L hip improved, R hip worse by 10.8%. Due to worsening, switched from Reclast to Forteo, unfortunately this has been poorly tolerated. At this time we have very limited treatment options to offer. Lizzy would cost $250/injection which she states it not affordable. Evenity too was expensive. Given the limitations in treatment and the severity of her osteoporosis, recommended evaluation by the [facility], unfortunately their first available appt was in November 2024. Recommended today that she check with [facility] Osteoporosis center (at [facility]) to see how far out they are scheduling new patients, though she does not like this option due to distance from her house. Assessment & Plan (09/06/2023 9:40 AM SCHOOL LEADER): Managed by [facility]. Per patient they are making a referral to bone metabolism at [facility] she has not seen significant improvement with the Forteo or the Reclast. Assessment & Plan (09/01/2023 3:43 PM SCHOOL LEADER): DEXA: Lspine BMD 0.809 Tscore -2.2, L femoral neck 0.585 Tscore -2.4, total L hip 0.809 Tscore -1.1, R femoral neck 0.521 TScore -3.0, total R hip 0.736 Tscore - 1.7. Lspine worse by 4.4%, L hip improved, R hip worse by 10.8%. Due to worsening, switched from Reclast to Forteo, unfortunately this has been poorly tolerated. At this time we have very limited treatment options to offer. Lizzy would cost $250/injection which she states it not affordable. Evenity too was expensive. Given the limitations in treatment and the severity of her osteoporosis, recommend evaluation by the [facility], provided contact info for Dr. Castillo. Pt in agreement with plan. Assessment & Plan (06/30/2023 12:49 PM SCHOOL LEADER): DEXA: Lspine BMD 0.809 Tscore -2.2, L femoral neck 0.585 Tscore -2.4, total L hip 0.809 Tscore -1.1, R femoral neck 0.521 TScore -3.0, total R hip 0.736 Tscore - 1.7. Lspine worse by 4.4%, L hip improved, R hip worse by 10.8%. Due to worsening, switched from Reclast to Forteo which she started ~2 weeks ago; unfortunately since starting she reports pain in BLE distal to the knee. Her most recent Ca level was normal. Will recheck a CMP, vit D level, as well as a Mg today. Plan to hold Forteo and monitor pain while off, pending this may consider retrying the Forteo to see if the pain recurs. She will contact us with an update in ~2 weeks. Assessment & Plan (04/06/2023 7:38 PM CDT): Continue to monitor. Managed by [facility]. Patient is on Reclast calcium vitamin-D and exercise. Assessment & Plan (01/13/2023 12:11 PM CDT): 01/27/2021 DEXA: Lspine -1.8, L femoral neck -1.9, L total hip -1.2, R femoral neck -2.3, R total hip -1.0, FRAX major 32% and hip 7%. Received Reclast 07/22/2022, continue yearly. Assessment & Plan (10/14/2022 2:52 PM CDT): 01/27/2021 DEXA: Lspine -1.8, L femoral neck -1.9, L total hip -1.2, R femoral neck -2.3, R total hip -1.0, FRAX major 32% and hip 7%. Received Reclast 07/22/2022, continue yearly. Assessment & Plan (09/12/2022 6:07 PM CDT): Continue calcium vitamin-D and exercise Assessment & Plan (07/15/2022 1:42 PM SCHOOL LEADER): 01/27/2021 DEXA: Lspine -1.8, L femoral neck -1.9, L total hip -1.2, R femoral neck -2.3, R total hip -1.0, FRAX major 32% and hip 7%. Received Reclast 07/2021. Continue yearly Reclast, scheduled for 07/22 Assessment & Plan (06/03/2022 3:38 PM SCHOOL LEADER): 01/27/2021 DEXA: Lspine -1.8, L femoral neck -1.9, L total hip -1.2, R femoral neck -2.3, R total hip -1.0, FRAX major 32% and hip 7%. Received Reclast 07/2021. Continue yearly Reclast - check vit d today and will arrange for next reclast. Assessment & Plan (03/17/2022 3:08 PM CDT): 01/27/2021 DEXA: Lspine -1.8, L femoral neck -1.9, L total hip -1.2, R femoral neck -2.3, R total hip -1.0, FRAX major 32% and hip 7%. Received Reclast 07/2021. Continue yearly Reclast. Assessment & Plan (01/23/2022 5:02 PM CDT): Managed by [facility] currently on Reclast calcium and vitamin-D Assessment & Plan (12/07/2021 9:04 AM CDT): 01/27/2021 DEXA: Lspine -1.8, L femoral neck -1.9, L total hip -1.2, R femoral neck -2.3, R total hip -1.0, FRAX major 32% and hip 7%. Received Reclast 07/2021. Continue yearly Reclast. Assessment & Plan (09/03/2021 11:26 AM SCHOOL LEADER): 01/27/2021 DEXA: Lspine -1.8, L femoral neck -1.9, L total hip -1.2, R femoral neck -2.3, R total hip -1.0, FRAX major 32% and hip 7%. Received Reclast 07/2021. Continue yearly reclast and daily vitamin D-calcium supplement. Assessment & Plan (06/04/2021 10:27 AM SCHOOL LEADER): 01/27/2021 DEXA: Lspine -1.8, L femoral neck -1.9, L total hip -1.2, R femoral neck -2.3, R total hip -1.0, FRAX major 32% and hip 7% Received Reclast 07/09/2020 (2nd dose). Recent DEXA scan showed improvement as compared to 01/31/2019. Continue yearly reclast and daily vitamin D-calcium supplement. Assessment & Plan (03/04/2021 9:29 AM CDT): 01/27/2021 DEXA: Lspine -1.8, L femoral neck -1.9, L total hip -1.2, R femoral neck -2.3, R total hip -1.0, FRAX major 32% and hip 7% Vitamin D level was 68 in June 2020. Received Reclast 07/09/2020 (2nd dose). Recent DEXA scan showed improvement as compared to 01/31/2019. Continue yearly reclast and daily vitamin D-calcium supplement. Assessment & Plan (01/30/2021 4:04 PM CDT): 01/27/2021 DEXA: Lspine -1.8, L femoral neck -1.9, L total hip -1.2, R femoral neck -2.3, R total hip -1.0, FRAX major 32% and hip 7% Vitamin D level was 68 in June 2020. Received Reclast 07/09/2020 (2nd dose). Recent DEXA scan showed improvement as compared to 01/31/2019. Continue yearly reclast and daily vitamin D-calcium supplement. Assessment & Plan (01/16/2021 12:58 PM CDT): Vitamin D level was 68. Received Reclast 07/09/2020. Last DEXA per available records was 01/31/2019, due this summer - order provided today, she will schedule at [facility] Assessment & Plan (12/24/2020 9:06 AM CDT): Continue Reclast thru Rheum Continue calcium, vitD and exercise Assessment & Plan (12/03/2020 10:45 AM CDT): Vitamin D level was 68. Received Reclast 07/09/2020. Last DEXA per available records was 01/31/2019, due this summer - order provided today, she will schedule at [facility] Assessment & Plan (09/03/2020 12:23 PM SCHOOL LEADER): Vitamin D level was 68. Received Reclast 07/09/2020. Last DEXA per available records was 01/31/2019, due this summer. Assessment & Plan (07/09/2020 12:23 PM SCHOOL LEADER): Overdue for Reclast, last infusion was 03/28/2019, will receive infusion today. Vitamin D level was 68 Last DEXA per available records was 01/31/2019 Assessment & Plan (06/04/2020 11:15 AM SCHOOL LEADER): Overdue for Reclast, last infusion was 03/28/2019, will check benefits. Recheck vitamin D level now. Last DEXA per available records was 01/31/2019 Assessment & Plan (02/18/2020 9:46 PM CDT): Calcium, vit D and exercise. Continue to monitor DXA Assessment & Plan (08/13/2019 8:58 AM SCHOOL LEADER): Continue with Calcium, Vit D and Exercise. Recheck DXA iin Fall 2019 with mammogram Resolved Problems Problem Noted Date Diagnosed Date Resolved Date Chronic pain of right knee 05/07/2024 1 07/07/2023 Medicare annual wellness visit, subsequent 04/21/2024 05/07/2024 Assessment & Plan (04/21/2024 8:52 PM CDT): Encouraged healthy lifestyle, good nutrition and exercise. Encouraged Calcium and Vitamin D and weight bearing exercise for bone health. Reviewed immunizations. Reviewed age appropirate screenings. Medicare Wellness Documentation is completed within the chart Closed fracture of multiple ribs of right side with routine healing 01/08/2024 05/07/2024 Assessment & Plan (01/22/2024 8:16 PM CDT): Patient had a fall and experienced recent rib fractures. Continue with inspiratory spirometry and monitor for signs and symptoms of pneumonia. Assessment & Plan (01/08/2024 10:01 PM CDT): Rib fractures are present. Reviewed with patient this is a slow healing process. She still has oxycodone lidocaine patches. Encouraged ice and heat. Continue with the incentive spirometry that she would have been sent home after surgery. If she would have cough congestion any other pneumonia type symptoms she is to call immediately Barretts esophagus 09/06/2023 Assessment & Plan (01/22/2024 8:13 PM CDT): Patient with known Dupree's esophagus. Continue to monitor from Dr. Krishnamurthy. Assessment & Plan (09/06/2023 9:41 AM SCHOOL LEADER): New diagnosis Dupree's esophagus made on 08/2023 EGD at [facility] with Dr. Daniels Stressed importance of very close follow-up BMI 37.0-37.9, adult 09/06/2023 024 Assessment & Plan (10/13/2023 7:38 AM CDT): Discussed the patient's BMI. The BMI is above average. BMI management plan is completed. BMI Follow-up includes: nutrition counseling, exercise counseling and education provided. Assessment & Plan (09/06/2023 9:42 AM SCHOOL LEADER): Discussed the patient's BMI. The BMI is above average. BMI management plan is completed. BMI Follow-up includes: nutrition counseling, exercise counseling and education provided. Hyperglycemia 09/06/2023 09/06/2023 Positive depression screening 09/06/2023 09/06/2023 Annual physical exam 09/06/2023 024 Assessment & Plan (09/06/2023 9:43 AM SCHOOL LEADER): Encouraged healthy lifestyle, good nutrition and exercise. Encouraged Calcium and Vitamin D and weight bearing exercise for bone health. Reviewed immunizations Reviewed age appropirate screenings. Right knee pain 08/09/2023 09/06/2023 Sinus congestion 08/07/2023 09/06/2023 Assessment & Plan (08/07/2023 7:54 PM SCHOOL LEADER): Persistent sinusitis symptoms along with cough. Will start doxy b.i.d.. Start antihistamine (Claritin OR Zyrtec), Mucinex 12hour and Steroid nasal spray (Flonase). Push fluids. Rest. Supportive care. If sxs worsen or don\'t improve, pt is to followup in the office. Acute cough 08/07/2023 01/22/2024 Assessment & Plan (08/07/2023 7:55 PM SCHOOL LEADER): Persistent sinusitis symptoms along with cough. Will start doxy b.i.d.. Start antihistamine (Claritin OR Zyrtec), Mucinex 12hour and Steroid nasal spray (Flonase). Push fluids. Rest. Supportive care. If sxs worsen or don\'t improve, pt is to followup in the office. BMI 35.0-35.9,adult 08/03/2023 09/06/19 24 Assessment & Plan (08/07/2023 7:51 PM SCHOOL LEADER): Discussed the patient's BMI. The BMI is above average. BMI management plan is completed. BMI Follow-up includes: nutrition counseling, exercise counseling and education provided. Assessment & Plan (08/03/2023 8:29 AM SCHOOL LEADER): Discussed the patient's BMI. The BMI is above average. BMI management plan is completed. BMI Follow-up includes: nutrition counseling, exercise counseling and education provided. Patient has noticed increased weight gain primarily secondary to not as much activity. Encouraged to consider water aerobics when she is cleared by JACQUI Rae for her knee as this will help her become more active and put less weight pressure on her joints. Discussed weight management issues for approximately 15 minutes. Encouraged to log all food/drink/intake to determine daily caloric intake. Reviewed 3500 calories = 1# of weight so have to register a deficit to lose. Discussed obtaining this by decreasing daily caloric intake and or increasing exercise. Discussed decreasing carbs. Maintaining enough protein. Monitor/be aware of serving size. Increase water. Avoid sugar sweetened drinks. 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 My staff contacted the patient and she was instructed to go to the ER for further evaluation to determine underlying cause. She states throughout the day she has noticed a little bit more shortness of breath. She plans to have her brother drive her to [facility]. Charge nurse was notified of the arrival Discussed patient with Dr. Kelsey Interstitial pulmonary disease, unspecified 05/06/2023 01/22/2024 Other specified disorders of bone density and structure, unspecified site 05/06/2023 01/22/2024 Arthritis of left knee 05/04/202309/05 Preoperative cardiovascular examination 04/19/2023 09/06/2023 History of chest pain 04/19/20232023 Encounter for pre-operative examination 04/06/2023 09/06/2023 Assessment & Plan (04/06/2023 7:46 PM CDT): This is a significant, separately identifiable problem that was evaluated and managed on the same day as the wellness exam Requesting cardiac clearance with Dr. Barajas That visit is already scheduled for April 19. I have discussed with patient the inherent risk of surgery. Will defer cardiac clearance to her goodwill ambassador. Her chronic medical conditions are stable. [facility] as instructed her to hold the Orencia 2 weeks before her procedure. She will continue the rest of her medications and hold medications as indicated by the preop nurse before surgery. She has preop labs scheduled a week or so before surgery and as long as those are stable I will clear her medically for total replacement as to the best of my knowledge, there is not a medical contraindication for undergoing this elective surgery with general and/or regional anesthesia. BMI 32.0-32.9,adult 04/06/2023 06/02/20 Assessment & Plan (04/06/2023 9:12 AM CDT): Discussed the patient's BMI. The BMI is above average. BMI management plan is completed. BMI Follow-up includes: nutrition counseling, exercise counseling and education provided. Medicare annual wellness visit, subsequent 04/06/2023 09/06/2023 Assessment & Plan (04/13/2023 7:54 PM CDT): Encouraged healthy lifestyle, good nutrition and exercise. Encouraged Calcium and Vitamin D and weight bearing exercise for bone health. Reviewed immunizations. Reviewed age appropirate screenings. Medicare Wellness Documentation is completed within the chart Need for immunization against influenza 04/06/2023 04/19/2023 Assessment & Plan (04/13/2023 7:54 PM CDT): Flu updated in the office today Primary osteoarthritis of left knee 02/23/2023 09/06/2023 Assessment & Plan (04/06/2023 7:44 PM CDT): Patient with osteoarthritis of the left knee. It is end-stage and she is planning a left total knee replacement with Dr. Ge Sexton on May 04 at [facility]. Need for vaccination for Strep pneumoniae 01/20/2023 04/06/2023 Morbid obesity 12/21/2022 04/06/2023 Assessment & Plan (01/20/2023 8:15 PM CDT): Discussed the patient's BMI. The BMI is above average. BMI management plan is completed. BMI Follow-up includes: nutrition counseling, exercise counseling and education provided. Patient has an obesity-related condition (not limited to: hypertension, obstructive sleep apnea, osteoarthritis, hyperlipidemia, diabetes, etc.). Therefore, morbid obesity may be documented for patients with a BMI between 35.00-39.99. BMI 40.0-44.9, adult 12/21/2022 023 Assessment & Plan (12/21/2022 8:02 AM CDT): Discussed the patient's BMI. The BMI is above average. BMI management plan is completed. BMI Follow-up includes: nutrition counseling, exercise counseling and education provided. Leg swelling 12/12/2022 09/06/2023 Assessment & Plan (12/19/2022 8:34 PM CDT): Swelling has improved with transitioned to Bumex and discontinuation of the Lasix. Continue to monitor closely and monitor blood pressure as it is also stable today. She is having discomfort so will start gabapentin 100 mg b.i.d.. Reviewed risks benefits alternatives side effects and proper use. Follow-up in a month or so and reassess. She has test pending with Cardiology to look further at the venous support in those legs to see if any additional intervention is needed. Strongly encouraged support stockings and elevation when she is at home. Assessment & Plan (12/12/2022 7:44 PM CDT): Patient with leg swelling right greater than left. Saw Rheumatology and they felt like this is probably related to a flare. Does not seem to have any CHF or cardiac symptoms coinciding. Continue to monitor closely. Continue to monitor salt intake and wear support stockings. Follow-up if symptoms worsen or do not resolve BMI 39.0-39.9,adult 12/07/2022 12/22/19 Assessment & Plan (12/12/2022 7:44 PM CDT): Discussed the patient's BMI. The BMI is above average. BMI management plan is completed. BMI Follow-up includes: nutrition counseling, exercise counseling and education provided. Patient has an obesity-related condition (not limited to: hypertension, obstructive sleep apnea, osteoarthritis, hyperlipidemia, diabetes, etc.). Therefore, morbid obesity may be documented for patients with a BMI between 35.00-39.99. Assessment & Plan (12/07/2022 11:59 AM CDT): Discussed the patient's BMI. The BMI is above average. BMI management plan is completed. BMI Follow-up includes: nutrition counseling, exercise counseling and education provided. Morbid obesity 12/07/2022 12/21/2022 Assessment & Plan (12/12/2022 7:44 PM CDT): Discussed the patient's BMI. The BMI is above average. BMI management plan is completed. BMI Follow-up includes: nutrition counseling, exercise counseling and education provided. Assessment & Plan (12/19/2022 8:34 PM CDT): Discussed the patient's BMI. The BMI is above average. BMI management plan is completed. BMI Follow-up includes: nutrition counseling, exercise counseling and education provided. Patient has an obesity-related condition (not limited to: hypertension, obstructive sleep apnea, osteoarthritis, hyperlipidemia, diabetes, etc.). Therefore, morbid obesity may be documented for patients with a BMI between 35.00-39.99. BMI 37.0-37.9, adult 11/08/2022 023 Assessment & Plan (11/08/2022 11:25 AM CDT): Discussed the patient's BMI. The BMI is above average. BMI management plan is completed. BMI Follow-up includes: nutrition counseling, exercise counseling and education provided. Morbid obesity 11/08/2022 12/07/2022 Assessment & Plan (11/08/2022 11:25 AM CDT): Discussed the patient's BMI. The BMI is above average. BMI management plan is completed. BMI Follow-up includes: nutrition counseling, exercise counseling and education provided. Congestion of nasal sinus 10/25/2022 Assessment & Plan (10/25/2022 3:34 PM CDT): Negative COVID/FLU A/B Start antihistamine (Claritin OR Zyrtec), Mucinex 12hour and Steroid nasal spray (Flonase). Push fluids. Rest. Supportive care. If symptoms worsen or do not respond to [id number] allergy medicines within the next week she may call and will consider antibiotic. Left knee pain 09/13/2022 09/06/2023 BMI 39.0-39.9,adult 08/23/2022 11/09/19 Assessment & Plan (10/25/2022 3:32 PM CDT): Discussed the patient's BMI. The BMI is above average. BMI management plan is completed. BMI Follow-up includes: nutrition counseling, exercise counseling and education provided. Assessment & Plan (08/23/2022 2:19 PM SCHOOL LEADER): Discussed the patient's BMI. The BMI is above average. BMI management plan is completed. BMI Follow-up includes: nutrition counseling, exercise counseling and education provided. Annual physical exam 08/22/2022 023 Assessment & Plan (09/12/2022 6:16 PM CDT): Encouraged healthy lifestyle, good nutrition and exercise. Encouraged Calcium and Vitamin D and weight bearing exercise for bone health. Reviewed immunizations Reviewed age appropirate screenings. Continuous leakage of urine 07/18/2022 04/06/2023 Assessment & Plan (01/20/2023 8:14 PM CDT): Continue per Dr. Pate's/Urology. Patient states she has had urodynamics done and still waiting to develop plans Assessment & Plan (07/18/2022 10:20 AM SCHOOL LEADER): CT revealed pelvic lipomatosis that is compressing on the bladder causing to be elongated and probably contributing to her pain as well as urinary loss. Reviewed these results with the patient. It does not appear as though there is any infection that is present so will continue to monitor closely. I informed patient I will reach out to surgeon's in the community to determine the best referral. I will be in contact with her in the next few days once this is answered. Reminded patient if she would have increased pain experienced fever chills or sweats or inability to pass urine or stool she is to had to the ER immediately for further evaluation. She is in agreement with the plan, BMI 40.0-44.9, adult 07/08/2022 023 Right lower quadrant abdominal pain 07/08/2022 12/20/2022 Assessment & Plan (07/18/2022 10:21 AM SCHOOL LEADER): CT revealed pelvic lipomatosis that is compressing on the bladder causing to be elongated and probably contributing to her pain as well as urinary loss. Reviewed these results with the patient. It does not appear as though there is any infection that is present so will continue to monitor closely. I informed patient I will reach out to surgeon's in the community to determine the best referral. I will be in contact with her in the next few days once this is answered. Reminded patient if she would have increased pain experienced fever chills or sweats or inability to pass urine or stool she is to had to the ER immediately for further evaluation. She is in agreement with the plan, Assessment & Plan (07/08/2022 12:33 PM SCHOOL LEADER): Patient has had dysuria. She was started on Macrobid 2 days ago for burning with urination. She is had a progression of pain to the right lower quadrant and flank pain as well as suprapubic pain. She is feeling nauseated and is having chills. Concern for differential of kidney stone versus pyelonephritis versus diverticulitis versus other etiology. Recommend STAT abd/pelvis with and without contrast at [facility]. Check labs STAT. Acute right flank pain 07/08/202204/06 Assessment & Plan (07/18/2022 10:21 AM SCHOOL LEADER): CT revealed pelvic lipomatosis that is compressing on the bladder causing to be elongated and probably contributing to her pain as well as urinary loss. Reviewed these results with the patient. It does not appear as though there is any infection that is present so will continue to monitor closely. I informed patient I will reach out to surgeon's in the community to determine the best referral. I will be in contact with her in the next few days once this is answered. Reminded patient if she would have increased pain experienced fever chills or sweats or inability to pass urine or stool she is to had to the ER immediately for further evaluation. She is in agreement with the plan, Assessment & Plan (07/08/2022 5:58 PM SCHOOL LEADER): Images from the original note were not included. Patient has had dysuria. She was started on Macrobid 2 days ago for burning with urination. She is had a progression of pain to the right lower quadrant and flank pain as well as suprapubic pain. She is feeling nauseated and is having chills. Concern for differential of kidney stone versus pyelonephritis versus diverticulitis versus other etiology. Recommend STAT abd/pelvis with and without contrast at [facility]. Check labs STAT. STAT CT Abd/pelvis without contrast . Unable to do with contrast as unable to get an IV> I called and notified patient of the results. She states she has only had a bowl of cereal with milk for breakfast so admits hasn't had much fluid today as has been waiting for the CT. Thinks she will be able to drink when she gets home. Pain is all still on the right lower quadrant/suprapubic. Discussed with patient that I am unable fully evaluate the colon as she was unable to contrast. Pelvic lipomatosis may be the cause of the pain -- and may be contributing to the urinary symptoms but at this point I am unable to fully evaluate due to limitation of lab results/contrast. Offered for her to go to the ER tonight for further evaluation/fluids and she declines. Advised if sxs persist or increase, she will need to go to the ER immediately overnight. Will await the labs and followup in the AM. Patient is in agreement. Dysuria 07/06/2022 09/06/2023 Assessment & Plan (07/08/2022 12:33 PM SCHOOL LEADER): Patient has had dysuria. She was started on Macrobid 2 days ago for burning with urination. She is had a progression of pain to the right lower quadrant and flank pain as well as suprapubic pain. She is feeling nauseated and is having chills. Concern for differential of kidney stone versus pyelonephritis versus diverticulitis versus other etiology. Recommend STAT abd/pelvis with and without contrast at [facility]. Check labs STAT. Assessment & Plan (07/06/2022 8:50 AM SCHOOL LEADER): Pt presents with dysuria. Urine dip completed. Send urine culture. Antibiotic to pharmacy. Primary osteoarthritis of both knees 03/12/2022 04/06/2023 Morbid obesity with BMI of 40.0-44.9, adult 01/23/2022 05/02/2022 BMI 40.0-44.9, adult 01/12/2022 022 Assessment & Plan (01/12/2022 1:57 PM CDT): Obesity is unchanged. Discussed the patient's BMI. The BMI is above average. BMI management plan is completed. BMI Follow-up includes: nutrition counseling, exercise counseling and education provided. Morbid obesity 01/12/2022 11/08/2022 Assessment & Plan (10/25/2022 3:33 PM CDT): Discussed the patient's BMI. The BMI is above average. BMI management plan is completed. BMI Follow-up includes: nutrition counseling, exercise counseling and education provided. Patient has an obesity-related condition (not limited to: hypertension, obstructive sleep apnea, osteoarthritis, hyperlipidemia, diabetes, etc.). Therefore, morbid obesity may be documented for patients with a BMI between 35.00-39.99. Assessment & Plan (09/12/2022 6:16 PM CDT): Discussed the patient's BMI. The BMI is above average. BMI management plan is completed. BMI Follow-up includes: nutrition counseling, exercise counseling and education provided. Patient has an obesity-related condition (not limited to: hypertension, obstructive sleep apnea, osteoarthritis, hyperlipidemia, diabetes, etc.). Therefore, morbid obesity may be documented for patients with a BMI between 35.00-39.99. Assessment & Plan (07/18/2022 10:23 AM SCHOOL LEADER): Discussed the patient's BMI. The BMI is above average. BMI management plan is completed. BMI Follow-up includes: nutrition counseling, exercise counseling and education provided. Assessment & Plan (07/08/2022 12:30 PM SCHOOL LEADER): Discussed the patient's BMI. The BMI is above average. BMI management plan is completed. BMI Follow-up includes: nutrition counseling, exercise counseling and education provided. Assessment & Plan (05/02/2022 9:17 PM CDT): Consider Ozempic --- forms for patient assistance provided as doesn't specify DM vs weight Consider samples once returned Discussed the patient's BMI. The BMI is above average. BMI management plan is completed. BMI Follow-up includes: nutrition counseling, exercise counseling and education provided. Assessment & Plan (01/12/2022 1:57 PM CDT): Obesity is unchanged. Discussed the patient's BMI. The BMI is above average. BMI management plan is completed. BMI Follow-up includes: nutrition counseling, exercise counseling and education provided. Chronic pain of both knees 11/15/2021 1 Assessment & Plan (11/15/2021 6:42 PM CDT): Patient complains of right lateral knee pain. She has received multiple injections from her mint machine operator regarding her knee but yesterday when she called she was told they are doing them. I reviewed the message with her and appears as though there may be some confusion. I encouraged her to go ahead and call them back and see if they are willing to do the knee injection that her provider his routinely done for her. Advised if they are not able to we can further workup. Morbid obesity 11/15/2021 01/12/2022 Assessment & Plan (11/15/2021 6:41 PM CDT): Obesity is unchanged. Discussed the patient's BMI. The BMI is above average. BMI management plan is completed. BMI Follow-up includes: nutrition counseling, exercise counseling and education provided. Patient has an obesity-related condition (not limited to: hypertension, obstructive sleep apnea, osteoarthritis, hyperlipidemia, diabetes, etc.). Therefore, morbid obesity may be documented for patients with a BMI between 35.00-39.99. Right calf pain 09/13/2021 01/23/2022 Assessment & Plan (09/13/2021 9:26 PM CDT): Patient with right calf pain. Must rule out a DVT. Will send stat venous Dopplers. Received verbal that she is negative for DVT today. Patient was notified. Encouraged support stockings as instructed above. Skin exam, screening for cancer 09/11/2021 01/23/2022 Assessment & Plan (09/11/2021 11:28 PM SCHOOL LEADER): Patient has never had a full skin exam. She has quite a few lesions scattered and would benefit from a full exam. Will make referral Annual physical exam 09/11/2021 022 Assessment & Plan (09/11/2021 11:28 PM SCHOOL LEADER): Encouraged healthy lifestyle, good nutrition and exercise. Encouraged Calcium and Vitamin D and weight bearing exercise for bone health. Reviewed immunizations Reviewed age appropirate screenings. Cough 08/13/2021 01/23/2022 Assessment & Plan (08/13/2021 3:43 PM SCHOOL LEADER): Patient to presume positive COVID/FLU until results are available and plan to self isolate for up to 10 days from the onset of sxs. Check COVID/FLU test thru [facility] collection site in [place]. Let pt know the newest CDC recommendations are as follows: If positive COVID: Stay home for at least 5 days and isolate from others in your home. Wear a well-fitted mask if you must be around others in your home. End isolation after 5 full days if you are fever-free for 24 hours (without the use of fever-reducing medication) and your symptoms are improving. Wear a well-fitted mask for 10 full days any time you are around others inside your home or in public. Do not go to places where you are unable to wear a mask. Avoid travel Avoid being around people who are at high risk Consider mAb or there appropriate meds depending on risk factors. If positive FLU, complete 5 day quarantine and be fever free for 24 hours without meds and may consider antiviral based on timing and risk factors. If negative, treat sxs and observe. Treat sxs with Tylenol, Cough/cold medication otc and add VitD 5,000IU daily and Zinc 50mg daily. Monitor sxs and call or go to the ER if has any of the following: --trouble breathing --persistent pain or pressure in the chest --new confusion --inability to wake or stay awake -- bluish lips or face Cheratussin sent to pharm. Continue Albuterol prn Sinus congestion 07/13/2021 01/23/2022 Assessment & Plan (10/19/2021 10:54 AM CDT): I have changed the patient to Zyrtec and the patient will continue with Flonase. The patient was instructed to discontinue the Claritin. An allergy/ENT referral will be considered in the future. Assessment & Plan (07/13/2021 11:28 AM SCHOOL LEADER): I have ordered the patient Claritin 10 mg to take by mouth daily. The patient also has Flonase 2 puffs in each nostril daily. Obesity (BMI 30-39.9) 05/12/20212021 Assessment & Plan (11/03/2021 9:16 AM CDT): Obesity is unchanged. Discussed the patient's BMI. The BMI is above average. BMI management plan is completed. BMI Follow-up includes: nutrition counseling, exercise counseling and education provided. Assessment & Plan (09/11/2021 11:27 PM SCHOOL LEADER): Obesity is unchanged. Discussed the patient's BMI. The BMI is above average. BMI management plan is completed. BMI Follow-up includes: nutrition counseling, exercise counseling and education provided. Assessment & Plan (05/29/2021 8:24 PM SCHOOL LEADER): Obesity is unchanged. Discussed the patient's BMI. The BMI is above average. BMI management plan is completed. BMI Follow-up includes: nutrition counseling, exercise counseling and education provided. Assessment & Plan (05/12/2021 1:26 PM SCHOOL LEADER): Obesity is unchanged. Discussed the patient's BMI. The BMI is above average. BMI management plan is completed. BMI Follow-up includes: nutrition counseling, exercise counseling and education provided. BMI 37.0-37.9, adult 05/12/2021 022 Assessment & Plan (09/11/2021 11:27 PM SCHOOL LEADER): Obesity is unchanged. Discussed the patient's BMI. The BMI is above average. BMI management plan is completed. BMI Follow-up includes: nutrition counseling, exercise counseling and education provided. Assessment & Plan (05/29/2021 8:24 PM SCHOOL LEADER): Obesity is unchanged. Discussed the patient's BMI. The BMI is above average. BMI management plan is completed. BMI Follow-up includes: nutrition counseling, exercise counseling and education provided. Assessment & Plan (05/12/2021 1:26 PM SCHOOL LEADER): Obesity is unchanged. Discussed the patient's BMI. The BMI is above average. BMI management plan is completed. BMI Follow-up includes: nutrition counseling, exercise counseling and education provided. Tinea corporis 04/14/2021 01/23/2022 Assessment & Plan (05/31/2021 9:15 PM SCHOOL LEADER): Improving with Lotrisone. Keep the area clean and dry Assessment & Plan (05/29/2021 8:24 PM SCHOOL LEADER): Lotrisone to pharmacy. Encouraged her to keep the area clean and dry use her dryer to dry the skin before applying the cream. She is to call if symptoms worsen or do not resolve. Need for immunization against influenza 04/14/2021 05/31/2021 Assessment & Plan (05/29/2021 8:24 PM SCHOOL LEADER): Fluid updated in the office Medicare annual wellness visit, subsequent 04/13/2021 05/31/2021 Assessment & Plan (05/29/2021 8:23 PM SCHOOL LEADER): Encouraged healthy lifestyle, good nutrition and exercise. Encouraged Calcium and Vitamin D and weight bearing exercise for bone health. Reviewed immunizations. Reviewed age appropirate screenings. Medicare Wellness Documentation is completed within the chart Dyspnea 03/24/2021 01/23/2022 Peripheral edema 03/22/2021 03/24/2021 Weight gain 03/05/2021 01/23/2022 Assessment & Plan (03/05/2021 10:14 AM CDT): She expresses concern about her weight and notes that her brother was recently dx with hypothyroidism, she requests to have thyroid levels checked to rule this out as a contributing factor. Chest discomfort 12/30/2020 12/30/2020 BMI 38.0-38.9,adult 12/24/2020 12/31/19 Assessment & Plan (12/24/2020 7:21 AM CDT): Obesity is unchanged. Discussed the patient's BMI. The BMI is above average. BMI management plan is completed. BMI Follow-up includes: nutrition counseling, exercise counseling and education provided. BMI 39.0-39.9,adult 12/24/2020 12/25/19 Obesity (BMI 30-39.9) 12/24/20202020 Assessment & Plan (12/24/2020 7:21 AM CDT): Obesity is unchanged. Discussed the patient's BMI. The BMI is above average. BMI management plan is completed. BMI Follow-up includes: nutrition counseling, exercise counseling and education provided. BMI 40.0-44.9, adult 09/23/2020 021 Assessment & Plan (09/23/2020 11:23 AM CDT): Obesity is unchanged. Discussed the patient's BMI. The BMI is above average. BMI management plan is completed. BMI Follow-up includes: nutrition counseling, exercise counseling and education provided. Morbid obesity with BMI of 40.0-44.9, adult 09/23/2020 12/24/2020 Assessment & Plan (09/23/2020 11:23 AM CDT): Obesity is unchanged. Discussed the patient's BMI. The BMI is above average. BMI management plan is completed. BMI Follow-up includes: nutrition counseling, exercise counseling and education provided. Pain of left calf 08/31/2020 12/30/2020 Assessment & Plan (08/31/2020 9:31 AM SCHOOL LEADER): Error. This should be right calf but PT order sent and corrected so unable to remove. Fatigue 08/31/2020 09/06/2023 Assessment & Plan (04/06/2023 7:43 PM CDT): Probably multifactorial. Check labs and followup to re-evaluate Assessment & Plan (05/02/2022 9:16 PM CDT): Probably multifactorial. Check labs and followup to re-evaluate Assessment & Plan (08/31/2020 9:34 AM SCHOOL LEADER): Probably multifactorial. Check labs and followup to re-evaluate Pain in both lower extremities 08/31/2020 09/06/2023 Assessment & Plan (09/01/2023 3:41 PM SCHOOL LEADER): Cramping lower leg pain has resolved with stopping Forteo, will remain off. Now notes an aching pain in BLE distal to the knee at night when lying down. Gabapentin 200 mg qHS helps the pain to allow her to fall asleep, however then wakes with the pain later that night. Denies any AE to gabapentin. Discussed that we could try increasing her gabapentin to 400 mg qHS to see if this can offer additional benefit, she was interested in trying this. She will continue 200 mg qAM. BMI 40.0-44.9, adult 08/31/2020 021 Assessment & Plan (08/31/2020 9:33 AM SCHOOL LEADER): Obesity is unchanged. Discussed the patient's BMI. The BMI is above average. BMI management plan is completed. BMI Follow-up includes: nutrition counseling, exercise counseling and education provided. Pain of right calf 08/26/2020 Assessment & Plan (08/31/2020 9:31 AM SCHOOL LEADER): This is a significant, separately identifiable problem that was evaluated and managed on the same day as the wellness exam Unable to rule out DVT with her calf pain/sxs. Check STAT Venous doppler. Recvd Results and discussed with patient via phone. Negative for DVT. Recommend PT. Prefers [place] Annual physical exam 08/24/2020 021 Assessment & Plan (08/31/2020 9:34 AM SCHOOL LEADER): Encouraged healthy lifestyle, good nutrition and exercise. Encouraged Calcium and Vitamin D and weight bearing exercise for bone health. Reviewed immunizations Reviewed age appropirate screenings. Dizziness 05/07/2020 09/06/2023 Assessment & Plan (05/14/2020 9:35 PM SCHOOL LEADER): Suspect the dizziness is inner ear related. See Right otalgia. Also will send for vestibular therapy. If sxs persist thru the therapy, may consider ENT referral. If she has a syncopal event, palpitations, CP, SOB she is to followup immediately or go to the ER. If has changes in her sxs, not related to quick movement of her head, will pursue additional imaging. Assessment & Plan (05/07/2020 1:49 PM SCHOOL LEADER): Declines to report to er now 'I think it's just my ear and sinuses'. Will evaluate further with labs, ct head, and carotid us. Will increase prednisone to 5mg bid x 7 days as she reports gi intolerance with higher doses. She will report to er in the interim if having new or worsening of current symptoms. She will f/u in office next week Otalgia, right 05/07/2020 05/14/2020 Assessment & Plan (05/07/2020 1:49 PM SCHOOL LEADER): Declines to report to er now 'I think it's just my ear and sinuses'. Will evaluate further with labs, ct head, and carotid us. Will increase prednisone to 5mg bid x 7 days as she reports gi intolerance with higher doses. She will report to er in the interim if having new or worsening of current symptoms. She will f/u in office next week Acute intractable headache 05/07/2020 0 12/30/2020 Assessment & Plan (05/07/2020 1:49 PM SCHOOL LEADER): Declines to report to er now 'I think it's just my ear and sinuses'. Will evaluate further with labs, ct head, and carotid us. Will increase prednisone to 5mg bid x 7 days as she reports gi intolerance with higher doses. She will report to er in the interim if having new or worsening of current symptoms. She will f/u in office next week Acute non-recurrent pansinusitis 04/03/2020 12/24/2020 Assessment & Plan (04/03/2020 11:45 AM CDT): Will start on antibiotics, continue with flonase Advised f/u in 72h if not improving, sooner if worsening Acute otalgia, left 04/03/2020 12/31/19 21 Assessment & Plan (04/03/2020 11:45 AM CDT): Will start on antibiotics, continue with flonase Advised f/u in 72h if not improving, sooner if worsening Breast cancer screening by mammogram 02/18/2020 04/06/2023 Assessment & Plan (01/20/2023 8:14 PM CDT): Mammogram order provided Assessment & Plan (01/23/2022 5:00 PM CDT): Mammogram order provided Assessment & Plan (05/31/2021 9:15 PM SCHOOL LEADER): Mammogram order provided Assessment & Plan (02/18/2020 9:47 PM CDT): Mammogram order provided today Medicare annual wellness visit, subsequent 02/15/2020 02/15/2020 Precordial pain 09/04/2019 09/06/2023 Assessment & Plan (08/07/2023 7:50 PM SCHOOL LEADER): Workup in the hospital. Cardiology states her chest pain is not cardiac related. Will continue to monitor. Today she states it is definitely better Mild intermittent asthma without complication 09/04/19 20 01/23/2022 Assessment & Plan (10/19/2021 10:52 AM CDT): I have ordered a bronchial provocation challenge. The patient has not been formally diagnosed with asthma with this office. Patient will continue with Dulera, singular, and albuterol inhaler. Assessment & Plan (07/13/2021 11:26 AM SCHOOL LEADER): The patient will continue with Dulera 2 puffs b.i.d.. The patient continue Singulair 10 mg at bedtime. The patient has an albuterol inhaler or nebulizer that she may use on a p.r.n. basis and up to 4 times a day as needed for symptom control. Have ordered an IgE level, CBC with differential also within normal limits June of 2021 Assessment & Plan (02/17/2021 11:09 AM CDT): The patient does have dyspnea with exertion despite using ProAir MDI b.i.d., Singulair 10 mg daily and Dulera 2 puffs b.i.d.. She also has a nebulizer at home to use Xopenex and Atrovent on a p.r.n. basis. I will check a chest x-ray in full PFTs as well as a 6 minutes walk test and she will follow up here in 6 weeks. Assessment & Plan (12/24/2020 9:04 AM CDT): Continue singulair, Dulera and proair prn Assessment & Plan (02/18/2020 9:43 PM CDT): Continue per pulmonary. Pt feels like she is breathing well. Annual physical exam 08/13/2019 020 Assessment & Plan (08/13/2019 8:59 AM SCHOOL LEADER): Encouraged healthy lifestyle, good nutrition and exercise. Encouraged Calcium and Vitamin D and weight bearing exercise for bone health. Reviewed immunizations Reviewed age appropirate screenings. Obesity, morbid, BMI 40.0-49.9 08/13/2019 09/23/2020 Assessment & Plan (08/26/2020 7:10 AM SCHOOL LEADER): Obesity is unchanged. Discussed the patient's BMI. The BMI is above average. BMI management plan is completed. BMI Follow-up includes: nutrition counseling, exercise counseling and education provided. Assessment & Plan (05/14/2020 9:33 PM SCHOOL LEADER): Obesity is unchanged. Discussed the patient's BMI. The BMI is above average. BMI management plan is completed. BMI Follow-up includes: nutrition counseling, exercise counseling and education provided. Assessment & Plan (02/18/2020 7:25 AM CDT): Obesity is unchanged. Discussed the patient's BMI. The BMI is above average. BMI management plan is completed. BMI Follow-up includes: nutrition counseling, exercise counseling and education provided. Assessment & Plan (08/13/2019 8:58 AM SCHOOL LEADER): Obesity is unchanged. Discussed the patient's BMI. The BMI is above average. BMI management plan is completed. BMI Follow-up includes: nutrition counseling, exercise counseling and education provided. Decreased hearing of both ears 08/13/2019 04/06/2023 Assessment & Plan (01/23/2022 5:00 PM CDT): Patient has noted decreased hearing in both ears Recommend referral to ENT for further evaluation probable audiology testing. Assessment & Plan (12/24/2020 9:03 AM CDT): No change Assessment & Plan (02/18/2020 9:43 PM CDT): No change Assessment & Plan (08/13/2019 9:01 AM SCHOOL LEADER): This is a significant, separately identifiable problem that was evaluated and managed on the same day as the wellness exam Reassured pt there is no wax in the canal and the Tms appear normal. Discussed getting a hearing test but she would like to monitor as just got over sinusitis and thinks may have really started then. May call if desires referral Other fatigue 08/13/2019 01/22/2024 Assessment & Plan (09/06/2023 9:42 AM SCHOOL LEADER): Probably multifactorial. Check labs and followup to re-evaluate Assessment & Plan (09/03/2021 11:28 AM SCHOOL LEADER): She notes increased fatigue and lack of motivation, suspects she may be depressed. Will check vit D as she has been inside most of the last few months as well as a TSH. Otherwise will follow up with PCP as may benefit from a low dose antidepressant. Assessment & Plan (02/18/2020 9:47 PM CDT): Probably multifactorial. Check labs and followup to re-evaluate Assessment & Plan (08/13/2019 9:08 AM SCHOOL LEADER): Probably multifactorial. Check labs and followup to re-evaluate Check labs prior to next visit BMI 40.0-44.9, adult 08/02/2019 020 Assessment & Plan (08/13/2019 8:57 AM SCHOOL LEADER): Obesity is unchanged. Discussed the patient's BMI. The BMI is above average. BMI management plan is completed. BMI Follow-up includes: nutrition counseling, exercise counseling and education provided. Assessment & Plan (08/02/2019 7:21 AM SCHOOL LEADER): Obesity is unchanged. Discussed the patient's BMI. The BMI is above average. BMI management plan is completed. BMI Follow-up includes: nutrition counseling, exercise counseling and education provided. Morbid obesity 08/02/2019 08/13/2019 Assessment & Plan (08/02/2019 7:20 AM SCHOOL LEADER): Obesity is unchanged. Discussed the patient's BMI. The BMI is above average. BMI management plan is completed. BMI Follow-up includes: nutrition counseling, exercise counseling and education provided. Acute non-recurrent maxillary sinusitis 08/02/2019 08/13/2019 Assessment & Plan (08/02/2019 7:47 AM SCHOOL LEADER): Start antibiotic, antihistamine, Mucinex and Steroid nasal spray. Push fluids. Rest. Supportive care. If sxs worsen or don\'t improve, pt is to followup in the office. Encounter for screening mamm ogram for malignant neoplasm of breast 04/29/2019 08/13/2019 Assessment & Plan (04/29/2019 4:32 PM CDT): Mammogram order provided Sleep disturbance 04/29/2019 08/13/2019 Assessment & Plan (04/29/2019 4:34 PM CDT): Continue CPAP. Take Wellbutrin first thing in the AM Try otc melatonin. Monitor. Right foot pain 02/22/2019 08/13/2019 Assessment & Plan (02/22/2019 10:13 PM CDT): Unknown etiology. Very concerned about blue toes in the cold foot so will stat a arterial Doppler for evaluation of flow to the foot. She is being sent directly to [facility] and they were working her in today. Will await those results. No known injury so doubt any type of fracture. If Arterial doppler is normal will consider gout so will have her obtain labs today to further evaluate. Encouraged her to keep her foot elevated as well as warm and will await the results from the Doppler. She is on Chronic prednisone Results were called back and patient was notified that her arterial Doppler showed good flow. Will await the lab results which may get tomorrow or on Tuesday to determine if further follow-up is needed. If she has increased pain is unable to find a pulse increase blueness those would be all reasons to consider returning to the ER to make sure there isn't something else going on. Patient voices understanding. Other specified peripheral v ascular diseases (CMS/HCC) 02/22/2019 09/12/2022 Assessment & Plan (02/18/2020 9:44 PM CDT): Continue per vascular Assessment & Plan (02/22/2019 10:10 PM CDT): See foot pain for plan BMI 39.0-39.9,adult 12/27/2018 08/02/19 20 Assessment & Plan (04/29/2019 4:32 PM CDT): Obesity is unchanged. Discussed the patient's BMI. The BMI is above average. BMI management plan is completed. BMI Follow-up includes: nutrition counseling, exercise counseling and education provided. Assessment & Plan (02/22/2019 3:17 PM CDT): Obesity is unchanged. Discussed the patient's BMI. The BMI is above average. BMI management plan is completed. BMI Follow-up includes: nutrition counseling, exercise counseling and education provided. Assessment & Plan (12/27/2018 2:20 PM CDT): Obesity is unchanged. Discussed the patient's BMI. The BMI is above average; BMI management plan is completed. General weight loss/lifestyle modification strategies discussed (elicit support from others; identify saboteurs; non-food rewards, etc). Encouraged increased exercise. Otitis of right ear 12/13/2018 12/31/19 21 Assessment & Plan (05/14/2020 9:33 PM SCHOOL LEADER): Completed Doxy and steroid. No s/s infection. TMs dull -- may still have fluid behind the ear. Recommend Start antihistamine (Claritin OR Zyrtec), Mucinex 12hour and Steroid nasal spray (Flonase). If sxs persist, may need to consider ENT Assessment & Plan (12/23/2018 10:17 PM CDT): Start antibiotic, antihistamine, Mucinex and Steroid nasal spray. Push fluids. Rest. Supportive care. If sxs worsen or don\'t improve, pt is to followup in the office. Obesity (BMI 30-39.9) 11/01/20182019 Assessment & Plan (04/29/2019 4:30 PM CDT): Obesity is unchanged. Discussed the patient's BMI. The BMI is above average. BMI management plan is completed. BMI Follow-up includes: nutrition counseling, exercise counseling and education provided. Assessment & Plan (02/22/2019 3:17 PM CDT): Obesity is unchanged. Discussed the patient's BMI. The BMI is above average. BMI management plan is completed. BMI Follow-up includes: nutrition counseling, exercise counseling and education provided. Assessment & Plan (12/27/2018 2:20 PM CDT): Obesity is unchanged. Discussed the patient's BMI. The BMI is above average; BMI management plan is completed. General weight loss/lifestyle modification strategies discussed (elicit support from others; identify saboteurs; non-food rewards, etc). Encouraged increased exercise. Assessment & Plan (12/13/2018 11:45 AM CDT): Obesity is unchanged. Discussed the patient's BMI. The BMI is above average; BMI management plan is completed. General weight loss/lifestyle modification strategies discussed (elicit support from others; identify saboteurs; non-food rewards, etc). Encouraged increased exercise. Assessment & Plan (11/01/2018 10:55 PM CDT): Obesity is unchanged. Discussed the patient's BMI. The BMI is above average; BMI management plan is completed. General weight loss/lifestyle modification strategies discussed (elicit support from others; identify saboteurs; non-food rewards, etc). BMI 38.0-38.9,adult 11/01/2018 01/13/20 Assessment & Plan (11/03/2021 9:17 AM CDT): Obesity is unchanged. Discussed the patient's BMI. The BMI is above average. BMI management plan is completed. BMI Follow-up includes: nutrition counseling, exercise counseling and education provided. Assessment & Plan (12/13/2018 11:45 AM CDT): Obesity is unchanged. Discussed the patient's BMI. The BMI is above average; BMI management plan is completed. General weight loss/lifestyle modification strategies discussed (elicit support from others; identify saboteurs; non-food rewards, etc). Encouraged increased exercise. Assessment & Plan (11/01/2018 11:36 AM CDT): BMI Follow-up includes: Discussed diet and exercising counseling. Other fatigue 11/01/2018 08/13/2019 Primary osteoarthritis invol ving multiple joints 10/31/2018 04/06/2023 Assessment & Plan (09/12/2022 6:07 PM CDT): Continue Tylenol arthritis and Mobic p.r.n. Assessment & Plan (08/13/2019 8:59 AM SCHOOL LEADER): Continue with NSAIDs prn Atheroscler of [place] artery of both legs with intermit claudication 10/31/2018 12/20/2022 Assessment & Plan (09/11/2021 11:23 PM SCHOOL LEADER): Continue per vascular. She is on aspirin and statin Assessment & Plan (12/24/2020 9:03 AM CDT): Sxs stable. On ASA, statin and encouraged daily exercise. Assessment & Plan (02/18/2020 9:43 PM CDT): Continue per cardio. On ASA and statin Assessment & Plan (08/13/2019 8:45 AM SCHOOL LEADER): Continues with Dr. Alonso salmeron Assessment & Plan (11/01/2018 11:00 PM CDT): Pt sxs well controlled. On ASA Coronary artery disease of n ative artery of [place] heart with stable angina pectoris 10/31/2018 12/30/2020 Assessment & Plan (08/13/2019 8:36 AM SCHOOL LEADER): On ASA and Nitrate. Continue per cardio Depression 07/16/2018 09/11/2021 Frontal sinusitis 06/26/2018 12/24/2020 Leukopenia 03/29/2018 12/30/2020 Other chronic pain 08/05/2017 3 Chronic seasonal allergic rh initis due to pollen 04/25/2017 12/30/2020 Assessment & Plan (12/24/2020 9:03 AM CDT): Continue current regimen with singulair and otc Assessment & Plan (02/18/2020 9:44 PM CDT): Continue with otc regimen Assessment & Plan (08/13/2019 8:46 AM SCHOOL LEADER): Continue current regimen Assessment & Plan (11/01/2018 10:53 PM CDT): Continue current regimen as stable Moderate single current epis ode of major depressive disorder 02/03/2017 08/31/2020 HTN (hypertension) 09/09/2016 3 Assessment & Plan (04/06/2023 7:39 PM CDT): Bp is stable/in acceptable range for any co-morbidities. Encouraged to limit sodium intake and exercise for weight control. Continue Bumex and Zaroxolyn and potassium Managed by Cardiology Assessment & Plan (01/20/2023 8:13 PM CDT): Bp is stable/in acceptable range for any co-morbidities. Encouraged to limit sodium intake and exercise for weight control. Stable with just diuretics Cardio just transitioning her from Lasix to Bumex. She feels like it is beginning to help with the swelling Assessment & Plan (09/12/2022 6:13 PM CDT): Bp is stable/in acceptable range for any co-morbidities. Encouraged to limit sodium intake and exercise for weight control. Managed without medication Assessment & Plan (05/02/2022 9:15 PM CDT): Bp is stable/in acceptable range for any co-morbidities. Encouraged to limit sodium intake and exercise for weight control. On Lasix and potassium Assessment & Plan (01/23/2022 4:58 PM CDT): Bp is stable/in acceptable range for any co-morbidities. Encouraged to limit sodium intake and exercise for weight control. Continue Lasix and potassium Assessment & Plan (09/11/2021 11:26 PM SCHOOL LEADER): Bp is stable/in acceptable range for any co-morbidities. Encouraged to limit sodium intake and exercise for weight control. Currently stable without medication Assessment & Plan (05/29/2021 8:19 PM SCHOOL LEADER): Bp is stable/in acceptable range for any co-morbidities. Encouraged to limit sodium intake and exercise for weight control. Continue Lasix is helping with the swelling and addition. Blood pressure stable Assessment & Plan (05/24/2021 10:38 AM SCHOOL LEADER): Continue Lasix potassium Assessment & Plan (12/24/2020 9:05 AM CDT): Bp is stable/in acceptable range for any co-morbidities. Encouraged to limit sodium intake and exercise for weight control. Assessment & Plan (08/31/2020 9:32 AM SCHOOL LEADER): Bp is stable/in acceptable range for any co-morbidities. Encouraged to limit sodium intake and exercise for weight control. Stable with laxis currently Assessment & Plan (02/18/2020 9:44 PM CDT): Bp is stable/in acceptable range for any co-morbidities. Encouraged to limit sodium intake and exercise for weight control. Assessment & Plan (08/13/2019 8:57 AM SCHOOL LEADER): Bp is stable/in acceptable range for any co-morbidities. Encouraged to limit sodium intake and exercise for weight control. Assessment & Plan (02/22/2019 10:10 PM CDT): Bp is stable/in acceptable range for any co-morbidities. Encouraged to limit sodium intake and exercise for weight control. Assessment & Plan (11/01/2018 10:54 PM CDT): Bp is stable/in acceptable range for any co-morbidities. Encouraged to limit sodium intake and exercise for weight control. Continue current meds. Lower extremity edema 01/23/20162022 Overview (10/09/2016): Bilateral edema of lower extremity Assessment & Plan (09/12/2022 6:17 PM CDT): This is a significant, separately identifiable problem that was evaluated and managed on the same day as the wellness exam Patient is noticing increased swelling lower extremity. She had this before and responded well to Lasix. Increase to 2 tablets b.i.d.. She is been doing 2 in the morning 1 in the evening. Monitor closely. Encouraged to increase a banana day while she has the increased dose. Decrease sodium intake. Encouraged supportive stockings and activity. If symptoms worsen she is to follow up immediately Assessment & Plan (09/13/2021 9:25 PM CDT): Mild edema bilaterally. First must rule out a DVT in the right lower extremity. Regardless of those results she would benefit from wearing support stockings on a daily basis. She has difficulty pulling them. Recommend finding some on [employer] that fit her calf that she can zip on and off. Showed them to her on [employer] and where to order them. She states she will try to get them. Assessment & Plan (05/31/2021 9:16 PM SCHOOL LEADER): Improving slowly. May have been due to the Relafen. She is on 60 of Lasix with potassium 10 mEq daily. Continue with current plan. Keep legs elevated. Utilize compressi to improve cleared. on hose. Call if symptoms worsen or do not continue to improve. Assessment & Plan (05/29/2021 8:23 PM SCHOOL LEADER): Persistent lower extremity edema that has improved with regular use of Lasix and potassium. Continue to monitor sodium. Keep legs elevated. Encourage support hose. Will monitor electrolytes. Assessment & Plan (05/03/2021 7:55 PM CDT): Unknown etiology. She is definitely less active since her fracture. Encouraged to monitor her salt intake. Push fluids. Will put her on 5 days of Lasix and encourage the extremity and to cover the potassium. Keep her legs elevated and be as active as she can be. If she begins to notice increased shortness of breath and any chest pain any redness or localized pain in the calf she is to follow up immediately. Have her follow up next week to reassess. In addition will check a BNP and CMP. Assessment & Plan (05/24/2021 10:39 AM SCHOOL LEADER): Patient that her swelling was improving since discharge for over the last day or so it seems to be increasing. Will increase the Lasix to 40mg Start K 10meq daily Recheck labs in 5 days Assessment & Plan (08/31/2020 9:33 AM SCHOOL LEADER): Continue lasix Palpitations 12/08/2015 12/30/2020 Overview (10/09/2016): Palpitations Other abnormal glucose 11/11/201508/31 Asthma 10/14/2015 12/24/2020 Assessment & Plan (08/13/2019 8:49 AM SCHOOL LEADER): Continue with current regimen and with Pulmonary Assessment & Plan (11/01/2018 10:53 PM CDT): Currently Stable with regimen. Monitor closely with current allergy season. Followup Dr. Gomez as directed. Menopause 10/14/2015 12/30/2020 Cervical pain (neck) 10/14/2015 023 Immunizations Immunization Administration Dates Next Due COVID-19 mRNA (TextPayMe) 0.3 m L (30 mcg) vaccine (12 years and up) 08/17/2023,04/14/2023 Influenza, Quad, Adjuvantate d, Intramuscular 03/30/2022 Influenza, Quadrivalent, Hig h Dose, Preservative Free, Intrr 04/06/2023,04/14/2021 Influenza, Quadrivalent, Spl it, Intramuscular 03/29/2018 Influenza, Quadrivalent, Spl it, Preservative Free, Intramuscular 04/10/2020,03/22/2019,05/20/2017,05/03 Influenza, Split 04/01/2011,03/26/2010 Influenza, Trivalent, High D ose, Split, Preservative Free, Intramuscular 04/11/2024,04/06/2023 Influenza, Trivalent, IM (MDV) 03/23/2012 Influenza, Trivalent, Preser vative Free, Intramuscular 04/05/2015 Influenza, Unspecified 08/04/2022(Deferr ed: Patient Refused),03/30/2022 PPD TEST 05/11/2023 Pfizer SARS-CoV-2 Monovalent Vaccination (12+ Yrs) BABCOCK-READY TO USE 10/21/2021 Pfizer SARS-CoV-2 Monovalent Vaccination (12+ Yrs) PURPLE 04/14/2023,10/21/2021,02/20/2021,09/24,08/28/2020 Pfizer Sars-Cov-2 Bivalent V accination (12+ YRS) 08/17/2022,03/30/2022 Pneumococcal Conjugate PCV 13 08/21/2020 Pneumococcal Conjugate Pcv20 12/21/2022 Pneumococcal Polysaccharide PPV23 07/06/2014, Tdap 03/08/2021,08/20/2019 ZOSTER Recombinant 12/13/2017,12/12/2017, 018 Social History Tobacco Use Types Packs/Day Years Used Date Smoking Tobacco: Never Smokeless Tobacco: Never Tobacco Cessation:Counseling Given: Not Answered Comments:Never used Alcohol Use Standard Drinks/Week Comments No 0 (1 standard drink = 0.6 oz pur e alcohol) [facility] Utilities Answer Date Recorded In the past 12 months has IP Commerce, gas, oil, or water company threatened to [...] week 05/30/2024 How often do you attend [facility] or anabaptism services? 1 to 4 times per year 05/30/2024 Do you belong to any clubs o r organizations such as sikh groups, unions, fraternal or athletic groups, or [...] in the past 12 m [facility], were you homeless or living in a [...] on file Legal Sex Female 8:04 PM SCHOOL LEADER Gender Identity Female 02/15/2020 6:08 PM CDT Sexual Orientation Not on file Last Filed Vital Signs Vital Sign Reading Time Taken Comments Blood Pressure 112/78 08/23/2024 11:24 AM SCHOOL LEADER Pulse 73 08/23/2024 11:24 AM SCHOOL LEADER Temperature 36.9 C (98.4 F) 08/02/2024 11:18 AM SCHOOL LEADER Respiratory Rate 18 08/02/2024 11:1 8 AM SCHOOL LEADER Oxygen Saturation 97% 08/23/2024 11: 24 AM SCHOOL LEADER Inhaled Oxygen Concentration - - Weight 88.4 kg (194 lb 12.8 oz) 025 11:24 AM SCHOOL LEADER Height 154.9 cm (5' 1 ) 08/23/2024 11:2 4 AM SCHOOL LEADER Body Mass Index 36.81 08/23/2024 11:24 AM SCHOOL LEADER Plan of Treatment Not on file Medical Devices Implanted Type Area Gas Meter Prover Device Identifier Shelf Expiration Date Model / Serial / Lot [employer] Simplex P Radiopaque Full Dose Cement Bone Sterile 6191-1-010 - [id number] Implanted:Qty: 2 on 05/04/2023 by Michael Motta MD at [facility] Bone Cement Left: Knee [employer] 05/03/2025 6191-1-010 / 6191-1-001 / [id number] [employer] Simplex P Radiopaque Full Dose Cement Bone Sterile 6191-1-010 - [id number] Implanted:Qty: 2 on 05/30/2024 by Michael Motta MD at [facility] Bone Cement Right: Patella [employer] [id number] 05/03/2026 6191-1-010 / / [id number] [employer] Persona 14mm 30+ Mm Knee Tibia Taper Extension Stem [id number] - [id number] 4 - [id number] Implanted:Qty: 1 on 05/04/2023 by Michael Motta MD at [facility] Left: Knee [employer] [id number] 02/15/2033 [id number] / [id number]- 14 / [id number] [employer] Persona Cemented Cruciate Retaining Knee Left 7 Narrow Component [id number] - W14-4474-316-4 1 - [id number] Implanted:Qty: 1 on 05/04/2023 by Michael Motta MD at [facility] Left: Knee [employer] [id number] 10/25/2032 [id number] / [id number] 01 / [id number] [employer] Baseplate Tibial Knee Cemented Left Fixed Stemmed Persona Size D Tivanium [id number] - [id number] 1 - [id number] Implanted:Qty: 1 on 05/04/2023 by Michael Motta MD at [facility] Left: Knee [employer] [id number] 09/11/2032 [id number] / 52-7316-233- 01 / [id number] [employer] Persona 11mm Knee Left 6-7 C-D Insert Articular Vivacit-E Sterile [id number] - [id number] 1 - [id number] Implanted:Qty: 1 on 05/04/2023 by Michael Motta MD at [facility] Left: Knee [employer] [id number] 12/28/2025 [id number] / [id number] 11 / [id number] [employer] Persona 32mm Knee Component Patellar All Poly Latex Free 47-1903-030-32 - [id number] Implanted:Qty: 1 on 05/04/2023 by Michael Motta MD at [facility] [employer] 12/19/2027 [id number] / / [id number] [employer] Baseplate Tibial Knee Cemented Right Fixed Stemmed Persona Size C Tivanium [id number] - [id number] Implanted:Qty: 1 on 05/30/2024 by Michael Motta MD at [facility] Right: Knee [employer] [id number] 03/22/2033 [id number] / / [id number] [employer] Persona 29mm Knee Component Patellar All Poly Latex Free [id number] - [id number] Implanted:Qty: 1 on 05/30/2024 by Michael Motta MD at [facility] Right: Knee [employer] [id number] 12/18/2028 [id number] / / [id number] [employer] Persona 13mm Cruciate Retain Knee Right 6-7 Cd Insert Articular Latex Free [id number] - [id number] Implanted:Qty: 1 on 05/30/2024 by Michael Motta MD at [facility] Right: Patella [employer] [id number] 05/04/2025 [id number] / / [id number] [employer] Persona Cruciate Retaining Cemented Knee Right 7 Narrow Component [id number] - [id number] Implanted:Qty: 1 on 05/30/2024 by Michael Motta MD at [facility] Right: Knee [employer] [id number] 12/27/2033 [id number] / / [id number] [employer] Persona 14mm 30+ Mm Knee Tibia Taper Extension Stem [id number] - [id number] Implanted:Qty: 1 on 05/30/2024 by Michael Motta MD at [facility] Right: Knee [employer] [id number] 04/11/2034 [id number] / / [id number] Procedures Procedure Name Priority Date/Time Associated Diagnosis Comments COMPREHENSIVE METABOLIC PANEL Routine 08/23/2024 2:11 PM SCHOOL LEADER Encounter for medication monitoring CBC WITH AUTO DIFFERENTIAL Routine 08/23/2024 2:11 PM SCHOOL LEADER Encounter for medication monitoring VITAMIN B12 Routine 08/02/2024 7:41 AM SCHOOL LEADER Fatigue, unspecified type LIPID PANEL Routine 08/02/2024 7:41 AM SCHOOL LEADER Mixed hyperlipidemia HEMOGLOBIN A1C Routine 08/02/2024 7:41 AM SCHOOL LEADER Pre-diabetes COMPREHENSIVE METABOLIC PANEL Routine 08/02/2024 7:41 AM SCHOOL LEADER Mixed hyperlipidemia CBC WITH AUTO DIFFERENTIAL Routine 08/02/2024 7:41 AM SCHOOL LEADER Fatigue, unspecified type TSH Routine 08/02/2024 7:41 AM SCHOOL LEADER Fatigue, unspecified type ERYTHROCYTE SEDIMENTATION RATE Routine 07/30/2024 2:36 PM SCHOOL LEADER Seropositive rheumatoid arthritis of multiple sites ([facility]/HCC) ([facility]) CRP (ACUTE PHASE) Routine 07/30/2024 2:3 6 PM SCHOOL LEADER Seropositive rheumatoid arthritis of multiple sites ([facility]) ([facility]) COMPREHENSIVE METABOLIC PANEL Routine 07/30/2024 2:36 PM SCHOOL LEADER Encounter for medication monitoring CBC WITH AUTO DIFFERENTIAL Routine 07/30/2024 2:36 PM SCHOOL LEADER Encounter for medication monitoring XR KNEE RIGHT 3 VIEWS Schedule Routine, Read Routine (OP Routine) 07/24/2024 1:35 PM SCHOOL LEADER Status post total knee replacement using cement, right MAGNESIUM Routine 06/14/2024 11:06 AM SCHOOL LEADER Muscle cramping EGFR Routine 06/05/2024 4:17 AM SCHOOL LEADER DIFFERENTIAL AUTO Routine 06/05/2024 4:1 7 AM SCHOOL LEADER CBC WITH AUTO DIFFERENTIAL Routine 06/05/2024 4:17 AM SCHOOL LEADER BASIC METABOLIC PANEL Routine 06/05/2024 4:17 AM SCHOOL LEADER EGFR Routine 06/04/2024 3:42 AM SCHOOL LEADER DIFFERENTIAL AUTO Routine 06/04/2024 3:4 2 AM SCHOOL LEADER CBC WITH AUTO DIFFERENTIAL Routine 06/04/2024 3:42 AM SCHOOL LEADER BASIC METABOLIC PANEL Routine 06/04/2024 3:42 AM SCHOOL LEADER EGFR Routine 06/03/2024 6:18 AM SCHOOL LEADER DIFFERENTIAL AUTO Routine 06/03/2024 6:1 8 AM SCHOOL LEADER CBC WITH AUTO DIFFERENTIAL Routine 06/03/2024 6:18 AM SCHOOL LEADER BASIC METABOLIC PANEL Routine 06/03/2024 6:18 AM SCHOOL LEADER EGFR Routine 06/02/2024 6:16 AM SCHOOL LEADER DIFFERENTIAL AUTO Routine 06/02/2024 6:1 6 AM SCHOOL LEADER CBC WITH AUTO DIFFERENTIAL Routine 06/02/2024 6:16 AM SCHOOL LEADER BASIC METABOLIC PANEL Routine 06/02/2024 6:16 AM SCHOOL LEADER DIFFERENTIAL AUTO Routine 06/01/2024 10:53 AM SCHOOL LEADER CBC WITH AUTO DIFFERENTIAL Routine 06/01/2024 10:53 AM SCHOOL LEADER EGFR Routine 06/01/2024 8:41 AM SCHOOL LEADER BASIC METABOLIC PANEL Routine 06/01/2024 8:41 AM SCHOOL LEADER EGFR Routine 05/31/2024 3:10 AM SCHOOL LEADER DIFFERENTIAL AUTO Routine 05/31/2024 3:1 0 AM SCHOOL LEADER CBC WITH AUTO DIFFERENTIAL Routine 05/31/2024 3:10 AM SCHOOL LEADER BASIC METABOLIC PANEL Routine 05/31/2024 3:10 AM SCHOOL LEADER IN AN PROCEDURE PLACEHOLDER Routine 05/30/2024 2:25 PM SCHOOL LEADER IN AN PROCEDURE PLACEHOLDER Routine 05/30/2024 2:24 PM SCHOOL LEADER IN AN PROCEDURE PLACEHOLDER Routine 05/30/2024 2:23 PM SCHOOL LEADER IN AN PROCEDURE PLACEHOLDER Routine 05/30/2024 2:22 PM SCHOOL LEADER XR KNEE RIGHT 1 OR 2 VIEWS ED Urgent/IP Urgent 05/30/2024 10:52 AM SCHOOL LEADER IN AN PROCEDURE PLACEHOLDER Routine 05/30/2024 8:18 AM SCHOOL LEADER IN AN PROCEDURE PLACEHOLDER Routine 05/30/2024 8:17 AM SCHOOL LEADER IN AN ELECTIVE SUPRAGLOTTIC AIRWAY Routine 05/30/2024 8:17 AM SCHOOL LEADER ARTHROPLASTY TOTAL KNEE 05/30/2024 7:34 AM SCHOOL LEADER Primary osteoarthritis of right knee Case Notes RTKA POCUS INJ SCIATIC NERVE IP Routine 05/30/2024 7:13 AM SCHOOL LEADER POCUS INJ FEMORAL NERVE IP Routine 05/30/2024 7:13 AM SCHOOL LEADER SCREENING MAMMOGRAM BILATERAL W DYLLAN Schedule Routine, Read Routine (OP Routine) 04/11/2024 7:33 AM CDT Breast cancer screening by mammogram DEXA AXIAL SKELETON BONE DENSITY 1 OR MORE SITES Schedule Routine, Read Routine (OP Routine) 04/12/2023 8:14 AM CDT COLONOSCOPY Routine 07/27/2021 HEPATITIS C ANTIBODY Routine 06/04/2020 10:29 AM SCHOOL LEADER Encounter for screening for other viral diseases Chronic fatigue from Last 3 Months or Most Recently Relevant to Health Maintenance Results * CBC with auto differential (08/23/2024 2:11 PM SCHOOL LEADER) WBC 4.8 3.8 - 10.8 Thousand/u L [facility] RBC, POC 4.30 3.80 - 5.10 Million/uL [facility] Hgb 13.9 11.7 - 15.5 g/dL [facility] Hct 41.8 35.0 - 45.0 % [facility] MCV 97.2 80.0 - 100.0 fL [facility] MCH 32.3 27.0 - 33.0 pg [facility] MCHC 33.3 32.0 - 36.0 g/dL [facility] Comment: For adults, a slight decrease in the calculated MCHC value (in the range of 30 to 32 g/dL) is most likely not clinically significant; however, it should be interpreted with caution in correlation with other red cell parameters and the patient's clinical condition. Rdw 12.8 11.0 - 15.0 % [facility] Platelets 222 140 - 400 Thousand/u L [facility] MPV 10.3 7.5 - 12.5 fL [facility] Neutrophils, abs 3,384 1,500 - 7,800 cells/uL [facility] Lymphocytes, abs 965 850 - 3,900 cells/uL [facility] Monocyte abs 341 200 - 950 cells/uL [facility] Eosinophils, abs 72 15 - 500 cells/uL [facility] Basophils, abs 38 0 - 200 cells/uL [facility] Neutrophils 70.5 % [facility] Lymphocyte pct 20.1 % [facility] Monocytes 7.1 % [facility] Eosinophils 1.5 % [facility] Basophils 0.8 % [facility] Blood 08/23/2024 2:11 PM SCHOOL LEADER 08/23/2024 2:11 PM SCHOOL LEADER [facility] BLOOD ORDERABLES Vy suazo Result [facility] [id number] [address] [place] [phone] * (ABNORMAL) Comprehensive metabolic panel (08/23/2024 2:11 PM SCHOOL LEADER) Glucose 188(H) 65 - 99 mg/dL [facility] Comment: Fasting reference interval For someone without known diabetes, a glucose value >125 mg/dL indicates that they may have diabetes and this should be confirmed with a follow-up test. BUN 20 7 - 25 mg/dL [facility] Creatinine 0.70 0.50 - 1.05 mg/dL [facility] eGFR 94 > OR = 60 mL/min/1.7 3m2 [facility] BUN/creat ratio SEE NOTE: 6 - 22 (calc) [facility] Comment: Not Reported: BUN and Creatinine are within reference range. Sodium 137 135 - 146 mmol/L [facility] Potassium, pl 4.1 3.5 - 5.3 mmol/L [facility] Chloride 107 98 - 110 mmol/L [facility] CO2 23 20 - 32 mmol/L [facility] Calcium 9.0 8.6 - 10.4 mg/dL [facility] Protein, sr 6.4 6.1 - 8.1 g/dL [facility] Albumin 4.0 3.6 - 5.1 g/dL [facility] GLOBULIN 2.4 1.9 - 3.7 g/dL (calc) [facility] Alb/glob ratio 1.7 1.0 - 2.5 (calc) [facility] Bilirubin, total 0.6 0.2 - 1.2 mg/dL [facility] Alk phos 113 37 - 153 U/L [facility] AST 19 10 - 35 U/L [facility] ALT (SGPT) 13 6 - 29 U/L [facility] Blood 08/23/2024 2:11 PM SCHOOL LEADER 08/23/2024 2:11 PM SCHOOL LEADER [facility] BLOOD ORDERABLES Vy suazo Result [facility] [id number] [phone] * (ABNORMAL) CBC with auto differential (08/02/2024 7:41 AM SCHOOL LEADER) WBC 4.0 3.8 - 10.8 Thousand/u L [facility] RBC, POC 4.22 3.80 - 5.10 Million/uL [facility] Hgb 13.6 11.7 - 15.5 g/dL [facility] Hct 41.6 35.0 - 45.0 % [facility] MCV 98.6 80.0 - 100.0 fL [facility] MCH 32.2 27.0 - 33.0 pg [facility] MCHC 32.7 32.0 - 36.0 g/dL [facility] Comment: For adults, a slight decrease in the calculated MCHC value (in the range of 30 to 32 g/dL) is most likely not clinically significant; however, it should be interpreted with caution in correlation with other red cell parameters and the patient's clinical condition. Rdw 12.4 11.0 - 15.0 % [facility] Platelets 191 140 - 400 Thousand/u L [facility] MPV 10.3 7.5 - 12.5 fL [facility] Neutrophils, abs 2,796 1,500 - 7,800 cells/uL [facility] Lymphocytes, abs 760(L) 850 - 3,900 cells/uL [facility] Monocyte abs 312 200 - 950 cells/uL [facility] Eosinophils, abs 100 15 - 500 cells/uL [facility] Basophils, abs 32 0 - 200 cells/uL [facility] [facility] Neutrophils 69.9 % [facility] Lymphocyte pct 19.0 % [facility] Monocytes 7.8 % [facility] Eosinophils 2.5 % [facility] Basophils 0.8 % [facility] Blood 08/02/2024 7:41 AM SCHOOL LEADER 08/02/2024 7:42 AM SCHOOL LEADER Alee OSMAN LAB BLOOD ORDERABLES Final Result Performing Organization Address [facility]/ZIP Co de Phone Number [facility] [id number] [place] [phone] * TSH (08/02/2024 7:41 AM SCHOOL LEADER) Pathologist [facility] TSH 1.57 0.40 - 4.50 mIU/L [facility] Blood 08/02/2024 7:41 AM SCHOOL LEADER 08/02/2024 7:42 AM SCHOOL LEADER Alee OSMAN LAB BLOOD ORDERABLES Final Result Performing Organization Address [facility] Phone Number QUEST [employer] [facility] [address] [place] [phone] * Hemoglobin A1c (08/02/2024 7:41 AM SCHOOL LEADER) Hgb A1C 5.4 <5.7 % of total Hgb [facility] Comment: For the purpose of screening for the presence of diabetes: <5.7% Consistent with the absence of diabetes 5.7-6.4% Consistent with increased risk for diabetes (prediabetes) > or =6.5% Consistent with diabetes This assay result is consistent with a decreased risk of diabetes. Currently, no consensus exists regarding use of hemoglobin A1c for diagnosis of diabetes in children. According to [place] Diabetes Association (ADA) guidelines, hemoglobin A1c <7.0% represents optimal control in non- diabetic patients. Different metrics may apply to specific patient populations. Standards of Medical Care in Diabetes(ADA). Blood 08/02/2024 7:41 AM SCHOOL LEADER 08/02/2024 7:42 AM SCHOOL LEADER Alee OSMAN LAB BLOOD ORDERABLES Final Result Performing Organization Address City/[facility]/ZIP Co de Phone Number [email or web address] [facility] [address] [place] [address] * Vitamin B12 (08/02/2024 7:41 AM SCHOOL LEADER) Vitamin B12 349 200 - 1,100 pg/mL [facility] Comment: Please Note: Although the reference range for vitamin B12 is 200-1100 pg/mL, it has been reported that between 5 and 10% of patients with values between 200 and 400 pg/mL may experience neuropsychiatric and hematologic abnormalities due to occult B12 deficiency; less than 1% of patients with values above 400 pg/mL will have symptoms. Blood 08/02/2024 7:41 AM SCHOOL LEADER 08/02/2024 7:42 AM SCHOOL LEADER Alee OSMAN LAB BLOOD ORDERABLES Final Result Performing Organization Address [facility] Co de Phone Number [facility] [address] [place] [address] * Lipid panel (08/02/2024 7:41 AM SCHOOL LEADER) Cholesterol 127 <200 mg/dL [facility] HDL 75 > OR = 50 mg/dL [facility] Triglycerides 55 <150 mg/dL [facility] LDL 38 mg/dL (calc) [facility] Comment: Reference range: <100 Desirable range <100 mg/dL for primary prevention; <70 mg/dL for patients with CHD or diabetic patients with > or = 2 CHD risk factors. LDL-C is now calculated using the Piedad calculation, which is a validated novel method providing better accuracy than the Friedewald equation in the estimation of LDL-C. Barry FREITAS et al. ELAINE. 2013;310(19): 1301-9637 (http://education.CleverMiles/faq/DUB599) Chol/HDL ratio 1.7 <5.0 (calc) [facility] Non-HDL, (LDL+VLDL) 52 <130 mg/dL (calc) [facility] Comment: For patients with diabetes plus 1 major ASCVD risk factor, treating to a non-HDL-C goal of <100 mg/dL (LDL-C of <70 mg/dL) is considered a therapeutic option. Blood 08/02/2024 7:41 AM SCHOOL LEADER 08/02/2024 7:42 AM SCHOOL LEADER Alee OSMAN LAB BLOOD ORDERABLES Final Result [facility] [address] [place] [address] * Comprehensive metabolic panel (08/02/2024 7:41 AM SCHOOL LEADER) Pathologist [facility] Glucose 99 65 - 99 mg/dL [facility] Comment: Fasting reference interval BUN 15 7 - 25 mg/dL [facility] Creatinine 0.70 0.50 - 1.05 mg/dL [facility] eGFR 94 > OR = 60 mL/min/1.7 3m2 [facility] BUN/creat ratio SEE NOTE: 6 - 22 (calc) [facility] Comment: Not Reported: BUN and Creatinine are within reference range. Sodium 139 135 - 146 mmol/L [facility] Potassium, pl 4.4 3.5 - 5.3 mmol/L [facility] Chloride 109 98 - 110 mmol/L [facility] CO2 25 20 - 32 mmol/L [facility] Calcium 8.9 8.6 - 10.4 mg/dL [facility] Protein, sr 6.1 6.1 - 8.1 g/dL [facility] Albumin 3.8 3.6 - 5.1 g/dL [facility] GLOBULIN 2.3 1.9 - 3.7 g/dL (calc) [facility] Alb/glob ratio 1.7 1.0 - 2.5 (calc) [facility] Bilirubin, total 0.4 0.2 - 1.2 mg/dL [facility] Alk phos 129 37 - 153 U/L [facility] AST 19 10 - 35 U/L [facility] ALT (SGPT) 14 6 - 29 U/L [facility] Blood 08/02/2024 7:41 AM SCHOOL LEADER 08/02/2024 7:42 AM SCHOOL LEADER us Alee OSMAN LAB BLOOD ORDERABLES Final Result [facility] [address] [phone] * CBC with auto differential (07/30/2024 2:36 PM SCHOOL LEADER) Pathologist [facility] WBC 6.4 3.8 - 10.8 Thousand/u L [facility] RBC, POC 4.22 3.80 - 5.10 Million/uL [facility] Hgb 13.9 11.7 - 15.5 g/dL [facility] Hct 41.8 35.0 - 45.0 % [facility] MCV 99.1 80.0 - 100.0 fL [facility] MCH 32.9 27.0 - 33.0 pg [facility] MCHC 33.3 32.0 - 36.0 g/dL [facility] Comment: For adults, a slight decrease in the calculated MCHC value (in the range of 30 to 32 g/dL) is most likely not clinically significant; however, it should be interpreted with caution in correlation with other red cell parameters and the patient's clinical condition. Rdw 12.7 11.0 - 15.0 % [facility] Platelets 236 140 - 400 Thousand/u L [facility] MPV 10.4 7.5 - 12.5 fL [facility] Neutrophils, abs 4,499 1,500 - 7,800 cells/uL [facility] Lymphocytes, abs 1,152 850 - 3,900 cells/uL [facility] Monocyte abs 634 200 - 950 cells/uL [facility] Eosinophils, abs 83 15 - 500 cells/uL [facility] Basophils, abs 32 0 - 200 cells/uL [facility] Neutrophils 70.3 % [facility] Lymphocyte pct 18.0 % [facility] Monocytes 9.9 % [facility] Eosinophils 1.3 % [facility] Basophils 0.5 % [facility] Blood 07/30/2024 2:36 PM SCHOOL LEADER 07/30/2024 2:36 PM SCHOOL LEADER Sangita OSMAN LAB BLOOD ORDERABLES Vy l Result Performing Organization Address [facility] de Phone Number [facility]ST [facility] [address] [place] [address] * Erythrocyte sedimentation rate (07/30/2024 2:36 PM SCHOOL LEADER) Erythrocyte sedimentation rate 11 < OR = 30 mm/h [facility] Blood 07/30/2024 2:36 PM SCHOOL LEADER 07/30/2024 2:36 PM SCHOOL LEADER Sangita OSMAN LAB BLOOD ORDERABLES Vy l Result Performing Organization Address [facility] de Phone Number [facility]ST [facility] [address] [place] [address] * CRP (acute phase) (07/30/2024 2:36 PM SCHOOL LEADER) C-RP <3.0 <8.0 mg/L [facility] Blood 07/30/2024 2:36 PM SCHOOL LEADER 07/30/2024 2:36 PM SCHOOL LEADER Sangita OSMAN LAB BLOOD ORDERABLES Vy l Result Performing Organization Address City/[facility] Co de Phone Number [facility] [address] [address] * (ABNORMAL) Comprehensive metabolic panel (07/30/2024 2:36 PM SCHOOL LEADER) Glucose 115(H) 65 - 99 mg/dL [facility] Comment: Fasting reference interval For someone without known diabetes, a glucose value between 100 and 125 mg/dL is consistent with prediabetes and should be confirmed with a follow-up test. BUN 19 7 - 25 mg/dL [facility] Creatinine 0.70 0.50 - 1.05 mg/dL [facility] eGFR 94 > OR = 60 mL/min/1.7 3m2 [facility] BUN/creat ratio SEE NOTE: 6 - 22 (calc) [facility] Comment: Not Reported: BUN and Creatinine are within reference range. Sodium 140 135 - 146 mmol/L [facility] Potassium, pl 3.9 3.5 - 5.3 mmol/L [facility] Chloride 108 98 - 110 mmol/L [facility] CO2 24 20 - 32 mmol/L [facility] Calcium 9.5 8.6 - 10.4 mg/dL [facility] Protein, sr 6.3 6.1 - 8.1 g/dL [facility] Albumin 4.0 3.6 - 5.1 g/dL [facility] GLOBULIN 2.3 1.9 - 3.7 g/dL (calc) [facility] Alb/glob ratio 1.7 1.0 - 2.5 (calc) [facility] Bilirubin, total 0.5 0.2 - 1.2 mg/dL [facility] Alk phos 131 37 - 153 U/L [facility] AST 22 10 - 35 U/L [facility] ALT (SGPT) 14 6 - 29 U/L [facility] Blood 07/30/2024 2:36 PM SCHOOL LEADER 07/30/2024 2:36 PM SCHOOL LEADER Sangita OSMAN LAB BLOOD ORDERABLES Vy l Result [facility] [address] [address] * XR Knee Right 3 Views (07/24/2024 1:35 PM SCHOOL LEADER) Anatomical Region Laterality Modality Lower Extremities, Knee Right Computed Radiography 07/25/2024 7:16 AM SCHOOL LEADER Narrative 07/25/2024 7:18 AM SCHOOL LEADER EXAM DESCRIPTION: XR KNEE RIGHT 3 VIEWS REASON FOR STUDY: right knee pain Mild discomfort since RT TKR done 05/30/24 TECHNIQUE: 3 radiographic view(s) of the right knee . COMPARISON: 05/30/2024 FINDINGS: Bilateral total knee arthroplasties, in near anatomic alignment. No acute fracture. There is a small knee joint effusion. IMPRESSION: Right knee total arthroplasty in near anatomic alignment. Small knee joint effusion. THIS IS AN ELECTRONICALLY VERIFIED FINAL REPORT 07/25/2024 7:18 AM - Electronically signed by Elton CABA T: Report ID: [id number] Reading Location: [id number] Procedure Note Elton Jonas MD - 07/25/2024 EXAM DESCRIPTION: XR KNEE RIGHT 3 VIEWS REASON FOR STUDY: right knee pain Mild discomfort since RT TKR done 05/30/24 TECHNIQUE: 3 radiographic view(s) of the right knee . COMPARISON: 05/30/2024 FINDINGS: Bilateral total knee arthroplasties, in near anatomic alignment.No acute fracture. There is a small knee joint effusion. IMPRESSION: Right knee total arthroplasty in near anatomic alignment.Small knee joint effusion. THIS IS AN ELECTRONICALLY VERIFIED FINAL REPORT 07/25/2024 7:18 AM - Electronically signed by Elton Jonas M.D. KR T: Report ID: [id number] Reading Location: [id number] Michael Motta MD IMG XR PROCEDURES Final Re sult * Magnesium (06/14/2024 11:06 AM SCHOOL LEADER) Magnesium 2.0 1.5 - 2.5 mg/dL [employer] [facility] Blood 06/14/2024 11:0 6 AM SCHOOL LEADER 06/14/2024 11:06 AM SCHOOL LEADER Artis Grewal MD LAB BLOOD ORDERABLES Final Res ult QUEST [employer] [facility] [address] [facility] [address] * eGFR (06/05/2024 4:17 AM SCHOOL LEADER) eGFR 84 >=60 mL/min/1. 73 m2 Comment: Interpretive Data Reference Interval Normal >/= 90 mL/min/1.73m2 Mildly decreased* 60 - 89 mL/min/1.73m2 Mildly to moderately decreased 45 - 59 mL/min/1.73m2 Moderately to severely decreased 30 - 44 mL/min/1.73m2 Severely decreased 15 - 29 mL/min/1.73m2 Kidney Failure < 15 mL/min/1.73m2 *Relative to young adult level Estimated glomerular filtration rate is determined by the 2020 CKD-EPI equation recommended by the National Kidney Foundation (A Unifying Approach to GFR Estimation: Recommendations of the NKF-ASK Task Force on Reassessing the Inclusion of Race in Diagnosing Kidney Disease, JASN 2020). The CKD-EPI equation should not be used for patients with unstable renal function and has not been validated in children and those over 70. Current interpretive data was last reviewed 2021. Blood 06/05/2024 4:17 AM SCHOOL LEADER 06/05/2024 5:01 AM SCHOOL LEADER Michael Motta MD LAB BLOOD ORDERABLES Final Result [facility] [address] Department [place] [address] * Differential, auto (06/05/2024 4:17 AM SCHOOL LEADER) Pathologist [facility] Neutrophil abs 3.2 1.5 - 6.5 K/cumm Imm gran abs 0.0 0.0 - 0.1 K/cumm [facility] Lymphocyte abs 0.9 0.8 - 3.3 K/cumm [facility] Monocyte abs 0.7 0.2 - 0.8 K/cumm [facility] Eosinophil abs 0.2 0.0 - 0.5 K/cumm [facility] Basophil abs 0.0 0.0 - 0.1 K/cumm [facility] Neutrophil pct 63.8 % [facility] Comment: Interpretive Data Percent cell count reference ranges are not reported, since discordance with absolute values may lead to misinterpretation of CBC data. Current Interpretive Data was last revised on 2017. Imm gran pct 0.2 % [facility] Comment: Interpretive Data Percent cell count reference ranges are not reported, since discordance with absolute values may lead to misinterpretation of CBC data. Current Interpretive Data was last revised on 2017. Lymphocyte pct 17.1 % [facility] Comment: Interpretive Data Percent cell count reference ranges are not reported, since discordance with absolute values may lead to misinterpretation of CBC data. Current Interpretive Data was last revised on 2017. Monocyte pct 13.9 % [facility] Comment: Interpretive Data Percent cell count reference ranges are not reported, since discordance with absolute values may lead to misinterpretation of CBC data. Current Interpretive Data was last revised on 2017. Eosinophil pct 4.6 % [facility] Comment: Interpretive Data Percent cell count reference ranges are not reported, since discordance with absolute values may lead to misinterpretation of CBC data. Current Interpretive Data was last revised on 2017. Basophil pct 0.4 % [facility] Comment: Interpretive Data Percent cell count reference ranges are not reported, since discordance with absolute values may lead to misinterpretation of CBC data. Current Interpretive Data was last revised on 2017. Blood 06/05/2024 4:17 AM SCHOOL LEADER 06/05/2024 5:01 AM SCHOOL LEADER Michael Motta MD LAB BLOOD ORDERABLES Final Result Performing Organization Address [facility] Co de Phone Number [address] [address] * (ABNORMAL) CBC with auto differential (06/05/2024 4:17 AM SCHOOL LEADER) [facility] WBC 5.0 3.8 - 9.9 K/cumm Hgb 11.2(L) 11.9 - 15.5 g/dL [facility] Hct 34.3(L) 35.6 - 45.5 % [facility] Plt 201 150 - 400 K/cumm [facility] MPV 10.4 9.1 - 12.3 fL [facility] RBC 3.39(L) 3.90 - 5.20 M/cumm [facility] MCV 101.2(H) 81.3 - 96.4 fL [facility] MCH 33.0 27.1 - 33.3 pg [facility] MCHC 32.7 32.3 - 35.7 g/dL [facility] RDW CV 14.1 11.1 - 14.9 % [facility] RDW SD 51.8(H) 35.7 - 48.1 fL [facility] NRBC abs 0.00 0.00 - 0.01 K/cumm [facility] Blood 06/05/2024 4:17 AM SCHOOL LEADER 06/05/2024 5:01 AM SCHOOL LEADER Michael Motta MD LAB BLOOD ORDERABLES Final Result Performing Organization Address [facility] Co de Phone Number [address] [place] [address] * Basic metabolic panel (06/05/2024 4:17 AM SCHOOL LEADER) [facility] Sodium 138 135 - 145 mmol/L Potassium, pl 4.3 3.3 - 4.9 mmol/L [facility] Comment:Hemolyzed; Potassium value may be falsely elevated by as much as 1.0 mmol/L. Suggest redraw and reanalysis. Chloride 105 97 - 110 mmol/L [facility] CO2 24 22 - 32 mmol/L [facility] Anion gap 9 2 - 15 mmol/L [facility] BUN 16 6 - 25 mg/dL [facility] Creatinine 0.77 0.60 - 1.10 mg/dL [facility] Glucose 98 70 - 199 mg/dL [facility] Comment: Interpretive Data Fasting glucose >/= 126 mg/dl is diagnostic for diabetes. Fasting is defined as no caloric intake for at least 8 hours. Fasting glucose between 100 mg/dl to 125 mg/dl is diagnostic of prediabetes. In a patient with classic symptoms of hyperglycemia or hyperglycemic crisis, a random glucose >/= 200 mg/dl is diagnostic for diabetes. In the absence of unequivocal hyperglycemia, results should be confirmed by repeat testing. The classification and Diagnosis of Diabetes Diabetes Care 2021; 46: S19-S40. Current interpretive data was last revised 2022. Calcium 9.5 8.5 - 10.3 mg/dL [facility] Blood 06/05/2024 4:17 AM SCHOOL LEADER 06/05/2024 5:01 AM SCHOOL LEADER Michael Motta MD LAB BLOOD ORDERABLES Final Result [facility] [address] Department [place] [address] * eGFR (06/04/2024 3:42 AM SCHOOL LEADER) eGFR >90 >=60 mL/min/1. 73 m2 Comment: Interpretive Data Reference Interval Normal >/= 90 mL/min/1.73m2 Mildly decreased* 60 - 89 mL/min/1.73m2 Mildly to moderately decreased 45 - 59 mL/min/1.73m2 Moderately to severely decreased 30 - 44 mL/min/1.73m2 Severely decreased 15 - 29 mL/min/1.73m2 Kidney Failure < 15 mL/min/1.73m2 *Relative to young adult level Estimated glomerular filtration rate is determined by the 2020 CKD-EPI equation recommended by the National Kidney Foundation (A Unifying Approach to GFR Estimation: Recommendations of the NKF-ASK Task Force on Reassessing the Inclusion of Race in Diagnosing Kidney Disease, JASN 2020). The CKD-EPI equation should not be used for patients with unstable renal function and has not been validated in children and those over 70. Current interpretive data was last reviewed 2021. Blood 06/04/2024 3:42 AM SCHOOL LEADER 06/04/2024 4:19 AM SCHOOL LEADER Michael Motta MD LAB BLOOD ORDERABLES Final Result [facility] [address] Department [place] [address] * Differential, auto (06/04/2024 3:42 AM SCHOOL LEADER) Neutrophil abs 2.4 1.5 - 6.5 K/cumm Imm gran abs 0.0 0.0 - 0.1 K/cumm [facility] Lymphocyte abs 0.9 0.8 - 3.3 K/cumm [facility] Monocyte abs 0.6 0.2 - 0.8 K/cumm [facility] Eosinophil abs 0.2 0.0 - 0.5 K/cumm [facility] Basophil abs 0.0 0.0 - 0.1 K/cumm [facility] Neutrophil pct 58.4 % [facility] Comment: Interpretive Data Percent cell count reference ranges are not reported, since discordance with absolute values may lead to misinterpretation of CBC data. Current Interpretive Data was last revised on 2017. Imm gran pct 0.2 % [facility] Comment: Interpretive Data Percent cell count reference ranges are not reported, since discordance with absolute values may lead to misinterpretation of CBC data. Current Interpretive Data was last revised on 2017. Lymphocyte pct 21.0 % [facility] Comment: Interpretive Data Percent cell count reference ranges are not reported, since discordance with absolute values may lead to misinterpretation of CBC data. Current Interpretive Data was last revised on 2017. Monocyte pct 14.3 % [facility] Comment: Interpretive Data Percent cell count reference ranges are not reported, since discordance with absolute values may lead to misinterpretation of CBC data. Current Interpretive Data was last revised on 2017. Eosinophil pct 5.1 % [facility] Comment: Interpretive Data Percent cell count reference ranges are not reported, since discordance with absolute values may lead to misinterpretation of CBC data. Current Interpretive Data was last revised on 2017. Basophil pct 1.0 % [facility] Comment: Interpretive Data Percent cell count reference ranges are not reported, since discordance with absolute values may lead to misinterpretation of CBC data. Current Interpretive Data was last revised on 2017. Blood 06/04/2024 3:42 AM SCHOOL LEADER 06/04/2024 4:19 AM SCHOOL LEADER Michael Motta MD LAB BLOOD ORDERABLES Final Result Performing Organization Address City/[facility] Co de Phone Number [address] [place] [place] [address] * (ABNORMAL) CBC with auto differential (06/04/2024 3:42 AM SCHOOL LEADER) WBC 4.1 3.8 - 9.9 K/cumm Hgb 11.0(L) 11.9 - 15.5 g/dL [facility] Hct 34.3(L) 35.6 - 45.5 % [facility] Plt 180 150 - 400 K/cumm [facility] MPV 10.2 9.1 - 12.3 fL [facility] RBC 3.30(L) 3.90 - 5.20 M/cumm [facility] MCV 103.9(H) 81.3 - 96.4 fL [facility] MCH 33.3 27.1 - 33.3 pg [facility] MCHC 32.1(L) 32.3 - 35.7 g/dL [facility] RDW CV 14.3 11.1 - 14.9 % [facility] RDW SD 54.4(H) 35.7 - 48.1 fL [facility] NRBC abs 0.00 0.00 - 0.01 K/cumm [facility] Blood 06/04/2024 3:42 AM SCHOOL LEADER 06/04/2024 4:19 AM SCHOOL LEADER Michael Motta MD LAB BLOOD ORDERABLES Final Result Performing Organization Address City/[facility] Co de Phone Number [address] Department [place] [address] * Basic metabolic panel (06/04/2024 3:42 AM SCHOOL LEADER) [facility] Sodium 140 135 - 145 mmol/L Potassium, pl 4.1 3.3 - 4.9 mmol/L [facility] Chloride 108 97 - 110 mmol/L [facility] CO2 24 22 - 32 mmol/L [facility] Anion gap 8 2 - 15 mmol/L [facility] BUN 15 6 - 25 mg/dL [facility] Creatinine 0.68 0.60 - 1.10 mg/dL [facility] Glucose 92 70 - 199 mg/dL [facility] Comment: Interpretive Data Fasting glucose >/= 126 mg/dl is diagnostic for diabetes. Fasting is defined as no caloric intake for at least 8 hours. Fasting glucose between 100 mg/dl to 125 mg/dl is diagnostic of prediabetes. In a patient with classic symptoms of hyperglycemia or hyperglycemic crisis, a random glucose >/= 200 mg/dl is diagnostic for diabetes. In the absence of unequivocal hyperglycemia, results should be confirmed by repeat testing. The classification and Diagnosis of Diabetes Diabetes Care 202; 46: S19-S40. Current interpretive data was last revised 2022. Calcium 8.6 8.5 - 10.3 mg/dL [facility] Blood 06/04/2024 3:42 AM SCHOOL LEADER 06/04/2024 4:19 AM SCHOOL LEADER Michael Motta MD LAB BLOOD ORDERABLES Final Result [facility] [address] Department [place] [address] * eGFR (06/03/2024 6:18 AM SCHOOL LEADER) [facility] eGFR >90 >=60 mL/min/1. 73 m2 Comment: Interpretive Data Reference Interval Normal >/= 90 mL/min/1.73m2 Mildly decreased* 60 - 89 mL/min/1.73m2 Mildly to moderately decreased 45 - 59 mL/min/1.73m2 Moderately to severely decreased 30 - 44 mL/min/1.73m2 Severely decreased 15 - 29 mL/min/1.73m2 Kidney Failure < 15 mL/min/1.73m2 *Relative to young adult level Estimated glomerular filtration rate is determined by the 2020 CKD-EPI equation recommended by the National Kidney Foundation (A Unifying Approach to GFR Estimation: Recommendations of the NKF-ASK Task Force on Reassessing the Inclusion of Race in Diagnosing Kidney Disease, JASN 2020). The CKD-EPI equation should not be used for patients with unstable renal function and has not been validated in children and those over 70. Current interpretive data was last reviewed 2021. Blood 06/03/2024 6:18 AM SCHOOL LEADER 06/03/2024 6:49 AM SCHOOL LEADER Michael Motta MD LAB BLOOD ORDERABLES Final Result [place] [id number] [facility] [place] [address] * (ABNORMAL) Differential, auto (06/03/2024 6:18 AM SCHOOL LEADER) Neutrophil abs 3.4 1.5 - 6.5 K/cumm Imm gran abs 0.0 0.0 - 0.1 K/cumm [facility] Lymphocyte abs 0.7(L) 0.8 - 3.3 K/cumm [facility] Monocyte abs 0.6 0.2 - 0.8 K/cumm [facility] Eosinophil abs 0.2 0.0 - 0.5 K/cumm [facility] Basophil abs 0.0 0.0 - 0.1 K/cumm [facility] Neutrophil pct 68.6 % [facility] Comment: Interpretive Data Percent cell count reference ranges are not reported, since discordance with absolute values may lead to misinterpretation of CBC data. Current Interpretive Data was last revised on 2017. Imm gran pct 0.2 % [facility] Comment: Interpretive Data Percent cell count reference ranges are not reported, since discordance with absolute values may lead to misinterpretation of CBC data. Current Interpretive Data was last revised on 2017. Lymphocyte pct 14.4 % [facility] Comment: Interpretive Data Percent cell count reference ranges are not reported, since discordance with absolute values may lead to misinterpretation of CBC data. Current Interpretive Data was last revised on 2017. Monocyte pct 11.9 % [facility] Comment: Interpretive Data Percent cell count reference ranges are not reported, since discordance with absolute values may lead to misinterpretation of CBC data. Current Interpretive Data was last revised on 2017. Eosinophil pct 4.3 % [facility] Comment: Interpretive Data Percent cell count reference ranges are not reported, since discordance with absolute values may lead to misinterpretation of CBC data. Current Interpretive Data was last revised on 2017. Basophil pct 0.6 % [facility] Comment: Interpretive Data Percent cell count reference ranges are not reported, since discordance with absolute values may lead to misinterpretation of CBC data. Current Interpretive Data was last revised on 2017. Blood 06/03/2024 6:18 AM SCHOOL LEADER 06/03/2024 6:48 AM SCHOOL LEADER Michael Motta MD LAB BLOOD ORDERABLES Final Result [facility] [address] [facility] [place] [address] * (ABNORMAL) CBC with auto differential (06/03/2024 6:18 AM SCHOOL LEADER) WBC 4.9 3.8 - 9.9 K/cumm Hgb 11.2(L) 11.9 - 15.5 g/dL [facility] Hct 34.7(L) 35.6 - 45.5 % [facility] Plt 171 150 - 400 K/cumm [facility] MPV 10.3 9.1 - 12.3 fL [facility] RBC 3.38(L) 3.90 - 5.20 M/cumm [facility] MCV 102.7(H) 81.3 - 96.4 fL [facility] MCH 33.1 27.1 - 33.3 pg [facility] MCHC 32.3 32.3 - 35.7 g/dL [facility] RDW CV 14.6 11.1 - 14.9 % [facility] RDW SD 54.4(H) 35.7 - 48.1 fL [facility] NRBC abs 0.00 0.00 - 0.01 K/cumm [facility] Blood 06/03/2024 6:18 AM SCHOOL LEADER 06/03/2024 6:48 AM SCHOOL LEADER Michael Motta MD LAB BLOOD ORDERABLES Final Result Performing Organization Address [facility] de Phone Number [address] [place] [address] * Basic metabolic panel (06/03/2024 6:18 AM SCHOOL LEADER) [facility] Sodium 139 135 - 145 mmol/L Potassium, pl 4.1 3.3 - 4.9 mmol/L [facility] Chloride 108 97 - 110 mmol/L [facility] CO2 23 22 - 32 mmol/L [facility] Anion gap 8 2 - 15 mmol/L [facility] BUN 15 6 - 25 mg/dL [facility] Creatinine 0.64 0.60 - 1.10 mg/dL [facility] Glucose 103 70 - 199 mg/dL [facility] Comment: Interpretive Data Fasting glucose >/= 126 mg/dl is diagnostic for diabetes. Fasting is defined as no caloric intake for at least 8 hours. Fasting glucose between 100 mg/dl to 125 mg/dl is diagnostic of prediabetes. In a patient with classic symptoms of hyperglycemia or hyperglycemic crisis, a random glucose >/= 200 mg/dl is diagnostic for diabetes. In the absence of unequivocal hyperglycemia, results should be confirmed by repeat testing. The classification and Diagnosis of Diabetes Diabetes Care 2021; 46: S19-S40. Current interpretive data was last revised 2022. Calcium 9.0 8.5 - 10.3 mg/dL [facility] Blood 06/03/2024 6:18 AM SCHOOL LEADER 06/03/2024 6:49 AM SCHOOL LEADER Michael Motta MD LAB BLOOD ORDERABLES Final Result Performing Organization Address City/[facility]/ZIP Co de Phone Number [address] [place] [address] * eGFR (06/02/2024 6:16 AM SCHOOL LEADER) Pathologist [facility] eGFR >90 >=60 mL/min/1. 73 m2 Comment: Interpretive Data Reference Interval Normal >/= 90 mL/min/1.73m2 Mildly decreased* 60 - 89 mL/min/1.73m2 Mildly to moderately decreased 45 - 59 mL/min/1.73m2 Moderately to severely decreased 30 - 44 mL/min/1.73m2 Severely decreased 15 - 29 mL/min/1.73m2 Kidney Failure < 15 mL/min/1.73m2 *Relative to young adult level Estimated glomerular filtration rate is determined by the 2020 CKD-EPI equation recommended by the National Kidney Foundation (A Unifying Approach to GFR Estimation: Recommendations of the NKF-ASK Task Force on Reassessing the Inclusion of Race in Diagnosing Kidney Disease, JASN 2020). The CKD-EPI equation should not be used for patients with unstable renal function and has not been validated in children and those over 70. Current interpretive data was last reviewed 2021. Blood 06/02/2024 6:16 AM SCHOOL LEADER 06/02/2024 6:50 AM SCHOOL LEADER Michael Motta MD LAB BLOOD ORDERABLES Final Result [facility] [address] [facility] [place] [address] * Differential, auto (06/02/2024 6:16 AM SCHOOL LEADER) Pathologist [facility] Neutrophil abs 3.9 1.5 - 6.5 K/cumm Imm gran abs 0.0 0.0 - 0.1 K/cumm [facility] Lymphocyte abs 0.8 0.8 - 3.3 K/cumm [facility] Monocyte abs 0.8 0.2 - 0.8 K/cumm [facility] Eosinophil abs 0.1 0.0 - 0.5 K/cumm [facility] Basophil abs 0.0 0.0 - 0.1 K/cumm [facility] Neutrophil pct 69.0 % [facility] Comment: Interpretive Data Percent cell count reference ranges are not reported, since discordance with absolute values may lead to misinterpretation of CBC data. Current Interpretive Data was last revised on 2017. Imm gran pct 0.4 % [facility] Comment: Interpretive Data Percent cell count reference ranges are not reported, since discordance with absolute values may lead to misinterpretation of CBC data. Current Interpretive Data was last revised on 2017. Lymphocyte pct 14.3 % [facility] Comment: Interpretive Data Percent cell count reference ranges are not reported, since discordance with absolute values may lead to misinterpretation of CBC data. Current Interpretive Data was last revised on 2017. Monocyte pct 14.0 % [facility] Comment: Interpretive Data Percent cell count reference ranges are not reported, since discordance with absolute values may lead to misinterpretation of CBC data. Current Interpretive Data was last revised on 2017. Eosinophil pct 1.9 % [facility] Comment: Interpretive Data Percent cell count reference ranges are not reported, since discordance with absolute values may lead to misinterpretation of CBC data. Current Interpretive Data was last revised on 2017. Basophil pct 0.4 % [facility] Comment: Interpretive Data Percent cell count reference ranges are not reported, since discordance with absolute values may lead to misinterpretation of CBC data. Current Interpretive Data was last revised on 2017. Blood 06/02/2024 6:16 AM SCHOOL LEADER 06/02/2024 6:51 AM SCHOOL LEADER us Michael Motta MD LAB BLOOD ORDERABLES Final Result [facility] [address] [facility] [place] [address] * (ABNORMAL) CBC with auto differential (06/02/2024 6:16 AM SCHOOL LEADER) WBC 5.7 3.8 - 9.9 K/cumm Hgb 10.9(L) 11.9 - 15.5 g/dL [facility] Hct 34.9(L) 35.6 - 45.5 % [facility] Plt 134(L) 150 - 400 K/cumm [facility] MPV 10.7 9.1 - 12.3 fL [facility] RBC 3.30(L) 3.90 - 5.20 M/cumm [facility] MCV 105.8(H) 81.3 - 96.4 fL [facility] MCH 33.0 27.1 - 33.3 pg [facility] MCHC 31.2(L) 32.3 - 35.7 g/dL [facility] RDW CV 14.7 11.1 - 14.9 % [facility] RDW SD 57.2(H) 35.7 - 48.1 fL [facility] NRBC abs 0.00 0.00 - 0.01 K/cumm [facility] Blood 06/02/2024 6:16 AM SCHOOL LEADER 06/02/2024 6:51 AM SCHOOL LEADER Michael Motta MD LAB BLOOD ORDERABLES Final Result [facility] [address] [facility] [place] [address] * (ABNORMAL) Basic metabolic panel (06/02/2024 6:16 AM SCHOOL LEADER) Sodium 138 135 - 145 mmol/L Potassium, pl 4.5 3.3 - 4.9 mmol/L [facility] Comment:Hemolyzed; Potassium value may be falsely elevated by as much as 1.0 mmol/L. Suggest redraw and reanalysis. Chloride 109 97 - 110 mmol/L [facility] CO2 20(L) 22 - 32 mmol/L [facility] Anion gap 9 2 - 15 mmol/L [facility] BUN 16 6 - 25 mg/dL [facility] Creatinine 0.67 0.60 - 1.10 mg/dL [facility] Glucose 87 70 - 199 mg/dL [facility] Comment: Interpretive Data Fasting glucose >/= 126 mg/dl is diagnostic for diabetes. Fasting is defined as no caloric intake for at least 8 hours. Fasting glucose between 100 mg/dl to 125 mg/dl is diagnostic of prediabetes. In a patient with classic symptoms of hyperglycemia or hyperglycemic crisis, a random glucose >/= 200 mg/dl is diagnostic for diabetes. In the absence of unequivocal hyperglycemia, results should be confirmed by repeat testing. The classification and Diagnosis of Diabetes Diabetes Care 202; 46: S19-S40. Current interpretive data was last revised 2022. Calcium 7.9(L) 8.5 - 10.3 mg/dL [facility] Blood 06/02/2024 6:16 AM SCHOOL LEADER 06/02/2024 6:50 AM SCHOOL LEADER Michael Motta MD LAB BLOOD ORDERABLES Final Result [facility] [address] [facility] [place] [address] * (ABNORMAL) Differential, auto (06/01/2024 10:53 AM SCHOOL LEADER) Neutrophil abs 4.3 1.5 - 6.5 K/cumm Imm gran abs 0.0 0.0 - 0.1 K/cumm [facility] Lymphocyte abs 1.1 0.8 - 3.3 K/cumm [facility] Monocyte abs 1.0(H) 0.2 - 0.8 K/cumm [facility] Eosinophil abs 0.1 0.0 - 0.5 K/cumm [facility] Basophil abs 0.0 0.0 - 0.1 K/cumm [facility] Neutrophil pct 65.4 % [facility] Comment: Interpretive Data Percent cell count reference ranges are not reported, since discordance with absolute values may lead to misinterpretation of CBC data. Current Interpretive Data was last revised on 2017. Imm gran pct 0.3 % [facility] Comment: Interpretive Data Percent cell count reference ranges are not reported, since discordance with absolute values may lead to misinterpretation of CBC data. Current Interpretive Data was last revised on 2017. Lymphocyte pct 17.4 % [facility] Comment: Interpretive Data Percent cell count reference ranges are not reported, since discordance with absolute values may lead to misinterpretation of CBC data. Current Interpretive Data was last revised on 2017. Monocyte pct 15.2 % [facility] Comment: Interpretive Data Percent cell count reference ranges are not reported, since discordance with absolute values may lead to misinterpretation of CBC data. Current Interpretive Data was last revised on 2017. Eosinophil pct 1.2 % [facility] Comment: Interpretive Data Percent cell count reference ranges are not reported, since discordance with absolute values may lead to misinterpretation of CBC data. Current Interpretive Data was last revised on 2017. Basophil pct 0.5 % [facility] Comment: Interpretive Data Percent cell count reference ranges are not reported, since discordance with absolute values may lead to misinterpretation of CBC data. Current Interpretive Data was last revised on 2017. Blood 06/01/2024 10:5 3 AM SCHOOL LEADER 06/01/2024 10:58 AM SCHOOL LEADER us Michael Motta MD LAB BLOOD ORDERABLES Final Result Performing Organization Address City/[facility]/ZIP Co de Phone Number [facility] [address] [facility] Department [place] [address] * (ABNORMAL) CBC with auto differential (06/01/2024 10:53 AM SCHOOL LEADER) WBC 6.6 3.8 - 9.9 K/cumm Hgb 10.6(L) 11.9 - 15.5 g/dL [facility] Hct 32.6(L) 35.6 - 45.5 % [facility] Plt 156 150 - 400 K/cumm [facility] MPV 10.1 9.1 - 12.3 fL [facility] RBC 3.21(L) 3.90 - 5.20 M/cumm [facility] MCV 101.6(H) 81.3 - 96.4 fL [facility] MCH 33.0 27.1 - 33.3 pg [facility] MCHC 32.5 32.3 - 35.7 g/dL [facility] RDW CV 14.5 11.1 - 14.9 % [facility] RDW SD 53.6(H) 35.7 - 48.1 fL [facility] NRBC abs 0.00 0.00 - 0.01 K/cumm [facility] Blood 06/01/2024 10:5 3 AM SCHOOL LEADER 06/01/2024 10:58 AM SCHOOL LEADER Michael Motta MD LAB BLOOD ORDERABLES Final Result Performing Organization Address City/[facility]/ZIP Co de Phone Number [facility] [place] [address] * eGFR (06/01/2024 8:41 AM SCHOOL LEADER) [facility] eGFR >90 >=60 mL/min/1. 73 m2 Comment: Interpretive Data Reference Interval Normal >/= 90 mL/min/1.73m2 Mildly decreased* 60 - 89 mL/min/1.73m2 Mildly to moderately decreased 45 - 59 mL/min/1.73m2 Moderately to severely decreased 30 - 44 mL/min/1.73m2 Severely decreased 15 - 29 mL/min/1.73m2 Kidney Failure < 15 mL/min/1.73m2 *Relative to young adult level Estimated glomerular filtration rate is determined by the 2020 CKD-EPI equation recommended by the National Kidney Foundation (A Unifying Approach to GFR Estimation: Recommendations of the NKF-ASK Task Force on Reassessing the Inclusion of Race in Diagnosing Kidney Disease, JASN 2020). The CKD-EPI equation should not be used for patients with unstable renal function and has not been validated in children and those over 70. Current interpretive data was last reviewed 2021. Blood 06/01/2024 8:41 AM SCHOOL LEADER 06/01/2024 8:45 AM SCHOOL LEADER Michael Motta MD LAB BLOOD ORDERABLES Final Result [facility] [address] [place] [address] * (ABNORMAL) Basic metabolic panel (06/01/2024 8:41 AM SCHOOL LEADER) [facility] Sodium 139 135 - 145 mmol/L Potassium, pl 4.1 3.3 - 4.9 mmol/L [facility] Chloride 111(H) 97 - 110 mmol/L [facility] CO2 21(L) 22 - 32 mmol/L [facility] Anion gap 7 2 - 15 mmol/L [facility] BUN 20 6 - 25 mg/dL [facility] Creatinine 0.64 0.60 - 1.10 mg/dL [facility] Glucose 107 70 - 199 mg/dL [facility] Comment: Interpretive Data Fasting glucose >/= 126 mg/dl is diagnostic for diabetes. Fasting is defined as no caloric intake for at least 8 hours. Fasting glucose between 100 mg/dl to 125 mg/dl is diagnostic of prediabetes. In a patient with classic symptoms of hyperglycemia or hyperglycemic crisis, a random glucose >/= 200 mg/dl is diagnostic for diabetes. In the absence of unequivocal hyperglycemia, results should be confirmed by repeat testing. The classification and Diagnosis of Diabetes Diabetes Care 2021; 46: S19-S40. Current interpretive data was last revised 2022. Calcium 8.6 8.5 - 10.3 mg/dL [facility] Blood 06/01/2024 8:41 AM SCHOOL LEADER 06/01/2024 8:45 AM SCHOOL LEADER Michael Motta MD LAB BLOOD ORDERABLES Final Result [facility] [address] [facility] [place] [address] * eGFR (05/31/2024 3:10 AM SCHOOL LEADER) eGFR >90 >=60 mL/min/1. 73 m2 Comment: Interpretive Data Reference Interval Normal >/= 90 mL/min/1.73m2 Mildly decreased* 60 - 89 mL/min/1.73m2 Mildly to moderately decreased 45 - 59 mL/min/1.73m2 Moderately to severely decreased 30 - 44 mL/min/1.73m2 Severely decreased 15 - 29 mL/min/1.73m2 Kidney Failure < 15 mL/min/1.73m2 *Relative to young adult level Estimated glomerular filtration rate is determined by the 2020 CKD-EPI equation recommended by the National Kidney Foundation (A Unifying Approach to GFR Estimation: Recommendations of the NKF-ASK Task Force on Reassessing the Inclusion of Race in Diagnosing Kidney Disease, JASN 2020). The CKD-EPI equation should not be used for patients with unstable renal function and has not been validated in children and those over 70. Current interpretive data was last reviewed 2021. Blood 05/31/2024 3:10 AM SCHOOL LEADER 05/31/2024 3:28 AM SCHOOL LEADER Michael Motta MD LAB BLOOD ORDERABLES Final Result [facility] [address] [facility] [place] [address] * (ABNORMAL) Differential, auto (05/31/2024 3:10 AM SCHOOL LEADER) Neutrophil abs 8.1(H) 1.5 - 6.5 K/cumm Imm gran abs 0.0 0.0 - 0.1 K/cumm [facility] Lymphocyte abs 0.4(L) 0.8 - 3.3 K/cumm [facility] Monocyte abs 0.4 0.2 - 0.8 K/cumm [facility] Eosinophil abs 0.0 0.0 - 0.5 K/cumm [facility] Basophil abs 0.0 0.0 - 0.1 K/cumm [facility] Neutrophil pct 91.1 % [facility] Comment: Interpretive Data Percent cell count reference ranges are not reported, since discordance with absolute values may lead to misinterpretation of CBC data. Current Interpretive Data was last revised on 2017. Imm gran pct 0.3 % [facility] Comment: Interpretive Data Percent cell count reference ranges are not reported, since discordance with absolute values may lead to misinterpretation of CBC data. Current Interpretive Data was last revised on 2017. Lymphocyte pct 4.0 % [facility] Comment: Interpretive Data Percent cell count reference ranges are not reported, since discordance with absolute values may lead to misinterpretation of CBC data. Current Interpretive Data was last revised on 2017. Monocyte pct 4.4 % [facility] Comment: Interpretive Data Percent cell count reference ranges are not reported, since discordance with absolute values may lead to misinterpretation of CBC data. Current Interpretive Data was last revised on 2017. Eosinophil pct 0.1 % [facility] Comment: Interpretive Data Percent cell count reference ranges are not reported, since discordance with absolute values may lead to misinterpretation of CBC data. Current Interpretive Data was last revised on 2017. Basophil pct 0.1 % [facility] Comment: Interpretive Data Percent cell count reference ranges are not reported, since discordance with absolute values may lead to misinterpretation of CBC data. Current Interpretive Data was last revised on 2017. Blood 05/31/2024 3:10 AM SCHOOL LEADER 05/31/2024 3:28 AM SCHOOL LEADER Michael Motta MD LAB BLOOD ORDERABLES Final Result Performing Organization Address City/[facility] Co de Phone Number [facility] [address] [place] [address] * (ABNORMAL) CBC with auto differential (05/31/2024 3:10 AM SCHOOL LEADER) Pathologist [facility] WBC 8.9 3.8 - 9.9 K/cumm Hgb 11.9 11.9 - 15.5 g/dL [facility] Hct 36.5 35.6 - 45.5 % [facility] Plt 154 150 - 400 K/cumm [facility] MPV 9.8 9.1 - 12.3 fL [facility] RBC 3.53(L) 3.90 - 5.20 M/cumm [facility] MCV 103.4(H) 81.3 - 96.4 fL [facility] MCH 33.7(H) 27.1 - 33.3 pg [facility] MCHC 32.6 32.3 - 35.7 g/dL [facility] RDW CV 14.5 11.1 - 14.9 % [facility] RDW SD 54.6(H) 35.7 - 48.1 fL [facility] NRBC abs 0.00 0.00 - 0.01 K/cumm [facility] Blood 05/31/2024 3:10 AM SCHOOL LEADER 05/31/2024 3:28 AM SCHOOL LEADER Michael Motta MD LAB BLOOD ORDERABLES Final Result Performing Organization Address City/[facility]/ZIP Co de Phone Number [facility] [address] [address] * (ABNORMAL) Basic metabolic panel (05/31/2024 3:10 AM SCHOOL LEADER) Sodium 138 135 - 145 mmol/L Potassium, pl 4.5 3.3 - 4.9 mmol/L [facility] Chloride 111(H) 97 - 110 mmol/L [facility] CO2 21(L) 22 - 32 mmol/L [facility] Anion gap 6 2 - 15 mmol/L [facility] BUN 13 6 - 25 mg/dL [facility] Creatinine 0.60 0.60 - 1.10 mg/dL [facility] Glucose 139 70 - 199 mg/dL [facility] Comment: Interpretive Data Fasting glucose >/= 126 mg/dl is diagnostic for diabetes. Fasting is defined as no caloric intake for at least 8 hours. Fasting glucose between 100 mg/dl to 125 mg/dl is diagnostic of prediabetes. In a patient with classic symptoms of hyperglycemia or hyperglycemic crisis, a random glucose >/= 200 mg/dl is diagnostic for diabetes. In the absence of unequivocal hyperglycemia, results should be confirmed by repeat testing. The classification and Diagnosis of Diabetes Diabetes Care 2021; 46: S19-S40. Current interpretive data was last revised 2022. Calcium 8.8 8.5 - 10.3 mg/dL [facility] Blood 05/31/2024 3:10 AM SCHOOL LEADER 05/31/2024 3:28 AM SCHOOL LEADER Michael Motta MD LAB BLOOD ORDERABLES Final Result Performing Organization Address City/State/[facility] Co de Phone Number [facility] [address] [facility] [place] [address] * IN AN PROCEDURE PLACEHOLDER (05/30/2024 2:25 PM SCHOOL LEADER) Narrative Karen Olmstead MD - 05/30/2024 2:25 PM SCHOOL LEADER Karen Olmstead MD 05/30/2024 2:25 PM Peripheral Block Patient location during procedure: pre-op holding End time: 05/30/2024 7:29 AM Reason for block: post-op pain management per surgeon request Ultrasound image in chart or stored: yes Block type: single shot Laterality: right Block type: IPACK Staff: Placed by: Anesthesiologist: Karen Olmstead MD Procedure prep: Preprocedure checklist: patient identified, procedure contraindications assessed, site marked, procedure consent, surgical consent, IV checked, risks, benefits and alternatives discussed, monitors and equipment checked and timeout performed Procedure performed while patient: sedate with meaningful contact Monitoring: ECG, oximetry and blood pressure Supplemental O2: nasal cannula Prep solution: chlorhexidine/alcohol PPE: provider hat/mask, sterile gloves and sterile probe cover and gel Skin infiltrated with lidocaine 1%: yes Peripheral nerve block: Technique: ultrasound guided Injection assessment: injection made incrementally with constant monitoring, local visualized surrounding nerve on ultrasound, negative aspiration for heme, normal resistance to injection and see flowsheet for medication details us Karen Olmstead MD ANESTHESIA ORDERABLES Final Result * IN AN PROCEDURE PLACEHOLDER (05/30/2024 2:24 PM SCHOOL LEADER) Karen Churchill MD - 05/30/2024 2:24 PM SCHOOL LEADER Karen Olmstead MD 05/30/2024 2:24 PM Peripheral Block Patient location during procedure: pre-op holding End time: 05/30/2024 7:27 AM Reason for block: post-op pain management per surgeon request Ultrasound image in chart or stored: yes Block type: single shot Laterality: right Block type: vastus intermedius nerve block Staff: Placed by: Anesthesiologist: Karen Olmstead MD Procedure prep: Preprocedure checklist: patient identified, procedure contraindications assessed, site marked, procedure consent, surgical consent, IV checked, risks, benefits and alternatives discussed, monitors and equipment checked and timeout performed Patient position: supine Procedure performed while patient: sedate with meaningful contact Monitoring: ECG, oximetry and blood pressure Supplemental O2: nasal cannula Prep solution: chlorhexidine/alcohol PPE: provider hat/mask, sterile gloves and sterile probe cover and gel Peripheral nerve block: Technique: ultrasound guided Needle type: insulated, short-bevel and echogenic Needle gauge: 20 G Needle length: 100 mm Injection assessment: injection made incrementally with constant monitoring, negative aspiration for heme, no paresthesias noted, normal resistance to injection, see flowsheet for medication details and local visualized surrounding nerve on ultrasound Assessment: Block success: full evaluation pending Events: patient tolerated procedure well with no complications us Karen Olmstead MD ANESTHESIA ORDERABLES Final Result * IN AN PROCEDURE PLACEHOLDER (05/30/2024 2:23 PM SCHOOL LEADER) Karen Churchill MD - 05/30/2024 2:23 PM SCHOOL LEADER Karen Olmstead MD 05/30/2024 2:24 PM Peripheral Block Patient location during procedure: pre-op holding End time: 05/30/2024 7:26 AM Reason for block: post-op pain management per surgeon request Ultrasound image in chart or stored: yes Block type: single shot Laterality: right Block type: genicular nerve block Staff: Placed by: Anesthesiologist: Karen Olmstead MD Procedure prep: Preprocedure checklist: patient identified, procedure contraindications assessed, site marked, procedure consent, surgical consent, IV checked, risks, benefits and alternatives discussed, monitors and equipment checked and timeout performed Patient position: supine Procedure performed while patient: sedate with meaningful contact Monitoring: ECG, oximetry and blood pressure Supplemental O2: nasal cannula Prep solution: chlorhexidine/alcohol PPE: provider hat/mask, sterile gloves and sterile probe cover and gel Peripheral nerve block: Technique: ultrasound guided Needle type: insulated, short-bevel and echogenic Needle gauge: 20 G Needle length: 100 mm Injection assessment: injection made incrementally with constant monitoring, negative aspiration for heme, no paresthesias noted, normal resistance to injection, see flowsheet for medication details and local visualized surrounding nerve on ultrasound Assessment: Block success: full evaluation pending Events: patient tolerated procedure well with no complications Karen Olmstead MD ANESTHESIA ORDERABLES Edited Result - Final * IN AN PROCEDURE PLACEHOLDER (05/30/2024 2:22 PM SCHOOL LEADER) Narrative Karen Olmstead MD - 05/30/2024 2:22 PM [facility] Karen Olmstead MD 05/30/2024 2:24 PM Peripheral Block Patient location during procedure: pre-op holding End time: 05/30/2024 7:25 AM Reason for block: post-op pain management per surgeon request Ultrasound image in chart or stored: yes Block type: single shot Laterality: right Block type: saphenous nerve block - subsartorial approach Staff: Placed by: Anesthesiologist: Karen Olmstead MD Procedure prep: Preprocedure checklist: patient identified, procedure contraindications assessed, site marked, procedure consent, surgical consent, IV checked, risks, benefits and alternatives discussed, monitors and equipment checked and timeout performed Patient position: supine Procedure performed while patient: sedate with meaningful contact Monitoring: ECG, oximetry and blood pressure Supplemental O2: nasal cannula Prep solution: chlorhexidine/alcohol PPE: provider hat/mask, sterile gloves and sterile probe cover and gel Peripheral nerve block: Technique: ultrasound guided Needle type: insulated, short-bevel and echogenic Needle gauge: 20 G Needle length: 100 mm Injection assessment: injection made incrementally with constant monitoring, negative aspiration for heme, no paresthesias noted, normal resistance to injection, see flowsheet for medication details and local visualized surrounding nerve on ultrasound Assessment: Block success: full evaluation pending Events: patient tolerated procedure well with no complications us Karen Olmstead MD ANESTHESIA ORDERABLES Edited Result - Final * XR Knee Right 1 or 2 View (05/30/2024 10:52 AM SCHOOL LEADER) Anatomical Region Laterality Modality Lower Extremities, Knee Right Computed Radiography 05/30/2024 11:3 8 AM SCHOOL LEADER Narrative 05/30/2024 11:40 AM SCHOOL LEADER EXAM DESCRIPTION: XR KNEE RIGHT 1 OR 2 VIEWS REASON FOR STUDY: Right knee replacement 05/30/2024. TECHNIQUE: AP and lateral views of the right knee COMPARISON: Right knee radiographs 04/20/2024 (preop) FINDINGS: BONES/JOINTS: Cemented right knee prosthesis in near anatomic alignment. No periprostatic fracture is seen. SOFT TISSUES: Air and fluid in the joint space and subcutaneous tissues is postsurgical. IMPRESSION: Cemented right knee prosthesis in near anatomic alignment. THIS IS AN ELECTRONICALLY VERIFIED FINAL REPORT 05/30/2024 11:40 AM - Electronically signed by Anjum YARBROUGH T: Report ID: [id number] Reading Location: [id number] Procedure Note Anjum Chino MD - 05/30/2024 EXAM DESCRIPTION: XR KNEE RIGHT 1 OR 2 VIEWS REASON FOR STUDY: Right knee replacement 05/30/2024. TECHNIQUE: AP and lateral views of the right knee COMPARISON: Right knee radiographs 04/20/2024 (preop) FINDINGS: BONES/JOINTS: Cemented right knee prosthesis in near anatomic alignment. No periprostatic fracture is seen. SOFT TISSUES: Air and fluid in the joint space and subcutaneous tissuesis postsurgical. IMPRESSION: Cemented right knee prosthesis in near anatomic alignment. THIS IS AN ELECTRONICALLY VERIFIED FINAL REPORT 05/30/2024 11:40 AM - Electronically signed by Anjum YARBROUGH T: Report ID: [id number] Reading Location: [place] [address] Michael Motta MD IMG XR PROCEDURES Final Re sult * IN AN PROCEDURE PLACEHOLDER (05/30/2024 8:18 AM SCHOOL LEADER) Urban Monroe CRNA - 05/30/2024 8:18 AM SCHOOL LEADER Urban Davison CRNA 05/30/2024 8:19 AM Peripheral IV Catheter Patient location: OR Staff: Placed by: Anesthesiologist: Karen Olmstead MD Preprocedure prep: Prep solution: alcohol PPE: gloves and provider hat/mask PIV line: Laterality: right Site: antecubital Catheter size: 20 g Technique: ultrasound guided Procedure details: good blood return and occlusive dressing applied Number of attempts: 1 Assessment: Events: patient tolerated procedure well with no complications Result [facility] Karen Olmstead MD ANESTHESIA ORDERABLES Final Result * IN AN ELECTIVE SUPRAGLOTTIC AIRWAY, IN AN PROCEDURE PLACEHOLDER (05/30/2024 8:17 AM SCHOOL LEADER) Urban Monroe CRNA - 05/30/2024 8:17 AM SCHOOL LEADER Urban Davison CRNA 05/30/2024 8:18 AM Airway Patient location: OR Urgency: elective Indications for airway management: anesthesia Difficult airway: no Staff: Placed by: COMMUNITY RELATIONS REPRESENTATIVE: Urban Davison CRNA Emergent airway documentation: Risks and benefits discussed: yes Consent obtained: yes Consent given by: patient Airway prep: Preoxygenated: yes Patient position: sniffing Mask difficulty assessment: 1 - vent by mask Spontaneous ventilation during airway: present Sedation level during airway: GA Final airway details: Final airway type: supraglottic airway Final supraglottic airway: classic SGA size: 4 Number of attempts: 1no Karen Olmstead MD ANESTHESIA ORDERABLES Final Result * POCUS INJ SCIATIC NERVE (05/30/2024 7:13 AM SCHOOL LEADER) Narrative [facility] - 05/30/2024 7:13 AM SCHOOL LEADER This procedure was performed and interpreted by the provider. Please refer to the provider's procedure/OR operative note for results. Michael Motta MD POCUS ORDERABLES Final Res ult Performing Organization Address [facility] de Phone Number [email or web address] * POCUS INJ FEMORAL NERVE (05/30/2024 7:13 AM SCHOOL LEADER) Narrative [facility] - 05/30/2024 7:13 AM SCHOOL LEADER This procedure was performed and interpreted by the provider. Please refer to the provider's procedure/OR operative note for results. Michael Motta MD POCUS ORDERABLES Final Res ult Performing Organization Address [facility] de Phone Number [email or web address] * Screening Mammogram Bilateral W Dyllan (04/11/2024 7:33 AM CDT) Anatomical Region Laterality Modality Breast Bilateral Mammography Alee OSMAN IMG MAMMO PROCEDURES Final Result * (ABNORMAL) Dexa Axial Skeleton Bone Density 1 or 2 Site (04/12/2023 8:14 AM CDT) Anatomical Region Laterality Modality Body N/A Radiographic Melanie ging Historical Provider IMG DXA PROCEDURES Edited Result - Final * Colonoscopy (07/27/2021) Anatomical Region Laterality Modality Other Historical Provider ENDOSCOPY PROCEDURES Vy l Result * Hepatitis C antibody (06/04/2020 10:29 AM SCHOOL LEADER) Hep C Ab NON-REACTI VE NON-REACT ALEXYS [facility] SIGNAL TO CUT-OFF 0.02 <1.00 [facility] Comment: HCV antibody was non-reactive. There is no laboratory evidence of HCV infection. In most cases, no further action is required. However, if recent HCV exposure is suspected, a test for HCV RNA (test code 79407) is suggested. For additional information please refer to http://education.Sapient/faq/YZD67b1 (This link is being provided for informational/ educational purposes only.) Blood specimen (specimen) 06/04/2020 10:29 AM SCHOOL LEADER 06/04/2020 10:30 AM SCHOOL LEADER [facility] MICROBIOLOGY - GENERA L ORDERABLES Final Result [facility] [address] [place] [address] from Last 3 Months or Most Recently Relevant to Health Maintenance Insurance [facility] Member Subscriber Plan / Payer (Ef fective 2019-Present) Name:Hany Roy Relation to Subscriber:Self Name:Hany Roy Payer ID:[id number] (NAIC) Type:MEDICARE RISK OTHER Address: [address] 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 Expl anation ADVANCE DIRECTIVE 05/17/2024 2:13 PM Yonis r of [employer] * Full Code (Latest Code Status on File) Date Activated Date Inactivated Comments 05/30/2024 12:38 PM 06/05/2024 6:31 PM * Full Code Date Activated Date Inactivated Comments 05/04/2023 2:33 PM 05/07/2023 3:07 AM * Full Code Date Activated Date Inactivated Comments 03/22/2021 4:39 PM 03/25/2021 6:17 PM Care Teams Green Building Energy Engineer Relationship Specialty Start Date End Date Alee Elizondo PA [address] [place], [place] [id number] PCP - General Internal Medicine 07/05/23 Sharan Linton MD Referring Physician Gastroenterology 10/31/18 Martha Starks MD Consulting Physician Cardiology 12/24/20 Sahma Hines MD [address] [facility] [address] [place] [address] Consulting Physician Pain Management 01/19/21 Artis Grewal MD [address] [place] [address] Consulting Physician Rheumatology 01/30/21 Amy Mayes NP [address] [facility] [address] [place] [address] Nurse Practitioner Cardiovascular Disease 04/20/24 Shailesh Dunn MD [address] [place] [address] Consulting Physician Pulmonary Disease 04/20/24 Sangita Farrar PA [address] [place] [address] Physician Newspaper Deliverer Rheumatology 05/15/24
--- OUTSIDE RECORDS SUMMARY | 2024-08-29 18:49 | XMS_ITS | Encounter Summary ---
Author Organization [facility] Facility Care Team Providers Care Metal Leaf Layer Name Role Phone Alee Elizondo Primary Care Provider + [phone] Sharan Linton MD Unavailable [phone] Taisha Gomez MD Unavailable [phone] Parag Soto MD Unavailable [phone] RaziaMartha singh MD Unavailable [phone] Puneet Uribe MD Unavailable Shama Hines MD Unavailable Artis Grewal MD Unavailable [phone] Harrison Pena RN Unavailable [phone] Nafisa Gregg RN Unavailable Tho Kelsey MD Primary Care Provider [phone] Alee Elizondo Primary Care Provider + [phone] Amy Mayes NP Unavailable [phone] Shailesh Dunn MD Unavailable [phone] Sangita Farrar Unavailable [phone] Encounter Details Date Type Department Care Team (Latest Contact Info) Description 06/28/2016 Orders Only [facility] CLINCONV Provider, MD Tania [address] [place] [id number] Social History Tobacco Use Types Packs/Day Years Used Date Smoking Tobacco: Never Alcohol Use Standard Drinks/Week Comments No 0 (1 standard drink = 0.6 oz pur e alcohol) Comments Unknown Sex and Gender Information Value Date Recorded Sex Assigned at Not on file Legal Sex Female 8:04 PM MEDICARE SALES EXECUTIVE Gender Identity Female 02/15/2020 6:08 PM CDT Sexual Orientation Not on file documented as of this encounter Plan of Treatment Not on file documented as of this encounter Procedures Procedure Name Priority Date/Time Associated Diagnosis Comments SCAN - LABS 06/29/2016 12:00 AM MEDICARE SALES EXECUTIVE documented in this encounter Results * SCAN - LABS (06/29/2016 12:00 AM MEDICARE SALES EXECUTIVE) Narrative 06/29/2016 12:00 AM MEDICARE SALES EXECUTIVE Ordered by an unspecified provider. us Historical Provider Final Res ult documented in this encounter Visit Diagnoses Not on filedocumented in this encounter Additional Health Concerns Infection Onset Date Last Indicated Resolved Time COVID: Suspected 08/13/2021 08/14/2021 08/14/2021 3:06 AM MEDICARE SALES EXECUTIVE COVID: Suspected 08/14/2021 08/14/2021 08/15/2021 3:05 AM MEDICARE SALES EXECUTIVE COVID: Suspected 08/14/2021 08/14/2021 08/15/2021 6:25 AM MEDICARE SALES EXECUTIVE COVID: Suspected 06/02/2023 06/02/2023 06/02/2023 7:25 PM MEDICARE SALES EXECUTIVE COVID: Suspected 07/26/2023 07/26/2023 07/26/2023 3:10 PM MEDICARE SALES EXECUTIVE documented as of this encounter Care Teams Metal Leaf Layer Relationship Specialty Start Date End Date Alee Elizondo PA [address] [facility] [address] [place] [address] PCP - General Internal Medicine 02/01/17 06/29/23 Tho Kelsey MD [address] [facility] [address] [place] [address] PCP - General Family Medicine 06/30/23 07/04/23 Alee Elizondo PA [address] [place] [address] PCP - General Internal Medicine 07/05/23 Sharan Linton MD [address] [place] [address] Referring Physician Gastroenterology 10/31/18 Taisha Gomez MD [address] [place], [place] [id number] Referring Physician Pulmonary Disease 10/31/18 12/23/20 Parag Soto MD [address] [place] [address] Referring Physician Rheumatology 10/31/18 12/23/20 Martha Starks MD [address] [place] [address] Consulting Physician Cardiology 12/24/20 Puneet Uribe MD [address] [facility] [address] [place] [address] Consulting Physician Rheumatology 12/24/20 01/29/21 Shama Hines MD [address] [facility] [address] [place] [address] Consulting Physician Pain Management 01/19/21 Artis Grewal MD [address] [place] [address] Consulting Physician Rheumatology 01/30/21 Harrison Pena, JULIUS [address] [place] [address] Exercise Physiology Professor 05/30/23 09/04/23 Nafisa Gregg, RN [address] [place] [address] [address] [place] [address] Exercise Physiology Professor 06/06/23 06/12/23 Amy Mayes NP [address] [facility] [address] [facility] [address] [place] [address] Nurse Practitioner Cardiovascular Disease 04/20/24 Shailesh Dunn MD [address] [facility] [address] [place] [address] Consulting Physician Pulmonary Disease 04/20/24 Sangita Farrar PA [address] [place] [address] Physician Casing Material Weigher Rheumatology 05/15/24 documented as of this encounter
--- OUTSIDE RECORDS SUMMARY | 2024-08-29 18:49 | XMS_ITS | Clinical Summary ---
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 Name Role Phone Sharan Linton MD Unavailable [phone] Martha Starks MD Unavailable [phone] Shama Hines MD Unavailable Artis Grewal MD Unavailable [phone] Alee Elizondo Primary Care Provider [phone] Amy Mayes NP Unavailable [phone] Shailesh Dunn MD Unavailable [phone] Sangita Farrar Unavailable Allergies Active Allergy Reactions Criticality Noted Date [...] 05/07/20 Assessment & Plan (05/07/2024 8:57 PM CONCILIATOR): I have examined this patient and ordered [...] She has had evaluation by Urology at [facility] and has been told there is [...] 08/03/2023 Assessment & Plan (05/07/2024 8:56 PM CONCILIATOR): Discussed the patient's BMI. The BMI is [...] provided. Assessment & Plan (09/06/2023 9:38 AM CONCILIATOR): Discussed the patient's BMI. The BMI is above average. BMI management plan is completed. BMI Follow-up includes: nutrition counseling, exercise counseling and education provided. Patient has an obesity-related condition (not limited to: hypertension, obstructive sleep apnea, osteoarthritis, hyperlipidemia, diabetes, etc.). Therefore, morbid obesity may be documented for patients with a BMI between 35.00-39.99. Assessment & Plan (08/07/2023 7:51 PM CONCILIATOR): Discussed the patient's BMI. The BMI is above average. BMI management plan is completed. BMI Follow-up includes: nutrition counseling, exercise counseling and education provided. Patient has an obesity-related condition (not limited to: hypertension, obstructive sleep apnea, osteoarthritis, hyperlipidemia, diabetes, etc.). Therefore, morbid obesity may be documented for patients with a BMI between 35.00-39.99. Assessment & Plan (08/03/2023 7:45 AM CONCILIATOR): Discussed the patient's BMI. The BMI is above average. BMI management plan is completed. BMI Follow-up includes: nutrition counseling, exercise counseling and education provided. Primary osteoarthritis of right knee 07/08/2023 Assessment & Plan (05/07/2024 8:56 PM CONCILIATOR): Patient has arthritis in the right knee. Planning a total knee replacement with Dr. Alexus Motta on May 30 Assessment & Plan (08/03/2023 8:28 AM CONCILIATOR): Continue per ortho. She is seeing some improvement but it is difficult to know if the knee is rheumatoid versus osteo versus other etiology. Will await recommendations from JACQUI Raya but definitely encouraged her to become active as soon as possible. Status post total knee replacement using cement, right 05/19/2023 Assessment & Plan (06/02/2023 4:56 PM CONCILIATOR): Status post total knee replacement with Dr. Ge Sexton 04 May. She has just been released from rehab following up for her TCM visit. She appears to have an area of cellulitis at the incision site. She is also complaining of increased pain. Will check CBC CMP and inflammatory markers along with an x-ray. She plans to go to [facility] for the workup. Will follow up with [...] provided. Assessment & Plan (06/02/2023 8:27 AM CONCILIATOR): Discussed the patients BMI: The BMI is [...] 12/20/2022 Assessment & Plan (05/07/2024 8:55 PM CONCILIATOR): Patient is on medication for her rheumatoid arthritis managed by [facility] Assessment & Plan (01/22/2024 8:13 PM CDT): Medications from [facility] contribute to her immunosuppressive state. Assessment & Plan (09/06/2023 9:41 AM CONCILIATOR): Medications are managed by [facility] for her rheumatoid arthritis Assessment & Plan (04/06/2023 7:44 PM CDT): Managed by [facility]. Currently on Plaquenil methotrexate Orencia folic acid. [...] She has had evaluation by Urology at [facility] and has been told there is [...] capacity. Assessment & Plan (09/06/2023 9:41 AM CONCILIATOR): Continue per . She did not tolerate [...] Pate. Assessment & Plan (07/18/2022 10:20 AM CONCILIATOR): CT revealed pelvic lipomatosis that is compressing [...] 02/11/2022 Assessment & Plan (09/06/2023 9:41 AM CONCILIATOR): No change. Dysfunction of both eustachian tubes 02/11/2022 Myalgia, lower leg 01/11/2022 PLMD (periodic limb movement disorder) Assessment & Plan (08/02/2024 11:49 AM CONCILIATOR): Asymptomatic Assessment & Plan (06/22/2022 10:31 AM CONCILIATOR): Will continue Requip 1 mg nightly Assessment [...] bedtime. Assessment & Plan (07/13/2021 11:25 AM CONCILIATOR): Due to the patient stating that she [...] 06/04/2020 Assessment & Plan (08/23/2024 10:16 AM CONCILIATOR): Hepatitis negative 06/2020 Tspot negative 06/2020 Continue routine lab monitoring Maintain routine eye exams throughout the duration of taking hydroxychloroquine Assessment & Plan (07/30/2024 8:24 AM CONCILIATOR): Hepatitis negative 06/2020 Tspot negative 06/2020 Continue [...] hydroxychloroquine Assessment & Plan (09/01/2023 8:34 AM CONCILIATOR): Hepatitis negative 06/2020 Tspot negative 06/2020 Continue routine lab monitoring Maintain routine eye exams throughout the duration of taking hydroxychloroquine Assessment & Plan (06/29/2023 2:19 PM CONCILIATOR): Hepatitis negative 06/2020 Tspot negative 06/2020 Continue [...] hydroxychloroquine Assessment & Plan (07/14/2022 2:58 PM CONCILIATOR): Hepatitis negative 06/2020 Tspot negative 06/2020 Continue routine lab monitoring Maintain routine eye exams throughout the duration of taking hydroxychloroquine Assessment & Plan (06/03/2022 9:58 AM CONCILIATOR): Hepatitis negative 06/2020 Tspot negative 06/2020 Continue [...] hydroxychloroquine Assessment & Plan (09/03/2021 8:29 AM CONCILIATOR): Hepatitis negative 06/2020 Tspot negative 06/2020 Continue routine lab monitoring Maintain routine eye exams throughout the duration of taking hydroxychloroquine Assessment & Plan (06/03/2021 4:17 PM CONCILIATOR): Hepatitis negative 06/2020 Tspot negative 06/2020 Continue [...] hydroxychloroquine Assessment & Plan (09/02/2020 1:16 PM CONCILIATOR): Hepatitis negative 06/2020 Tspot negative 06/2020 Continue routine lab monitoring Maintain routine eye exams throughout the duration of taking hydroxychloroquine Assessment & Plan (07/09/2020 12:23 PM CONCILIATOR): Hepatitis negative 06/2020 Tspot negative 06/2020 Continue routine lab monitoring Maintain routine eye exams throughout the duration of taking hydroxychloroquine Drug-induced constipation 08/13/2019 Assessment & Plan (05/07/2024 8:54 PM CONCILIATOR): Patient with chronic constipation. Has been on [...] linzess Assessment & Plan (08/13/2019 8:57 AM CONCILIATOR): On Movantik with Dr. Soto Herpes zoster without complication 12/13/2018 Assessment & Plan (12/23/2018 10:18 PM CDT): Valtex to pharmacy. She has had shingles in the past. Pre-diabetes 10/31/2018 Assessment & Plan (05/07/2024 8:55 PM CONCILIATOR): Pre-diabetes/hyperglycemia is a precursor to Dm. Stressed [...] diabetes. Assessment & Plan (09/06/2023 9:40 AM CONCILIATOR): Pre-diabetes/hyperglycemia is a precursor to Dm. Stressed [...] diabetes. Assessment & Plan (09/11/2021 11:22 PM CONCILIATOR): Pre-diabetes/hyperglycemia is a precursor to Dm. Stressed importance of working on diet (decrease your simple sugars and one carbohydrate with each meal) and increase you exercise to achieve weight loss and this will help prevent you from progressing to diabetes. Assessment & Plan (05/29/2021 8:18 PM CONCILIATOR): Pre-diabetes/hyperglycemia is a precursor to Dm. Stressed [...] diabetes. Assessment & Plan (08/31/2020 9:34 AM CONCILIATOR): Pre-diabetes is a precursor to Dm. Stressed [...] diabetes. Assessment & Plan (08/13/2019 9:00 AM CONCILIATOR): This is a significant, separately identifiable problem [...] 10/31/2018 Assessment & Plan (05/07/2024 8:54 PM CONCILIATOR): Depression symptoms are stable with Wellbutrin XL 150 Cymbalta 60 b.i.d. Assessment & Plan (04/21/2024 8:50 PM CDT): Depression symptoms are stable with the Wellbutrin XL 150 and Cymbalta 60 b.i.d. Assessment & Plan (01/22/2024 8:11 PM CDT): Depression symptoms are stable with Wellbutrin and Cymbalta Assessment & Plan (09/06/2023 9:40 AM CONCILIATOR): Depression is stable with Wellbutrin and Cymbalta Assessment & Plan (08/03/2023 8:31 AM CONCILIATOR): Stable with Cymbalta 60 and Wellbutrin XL [...] Cymbalta Assessment & Plan (09/11/2021 11:26 PM CONCILIATOR): Continue Wellbutrin and Cymbalta Assessment & Plan (05/29/2021 8:22 PM CONCILIATOR): Continue Wellbutrin and Cymbalta Assessment & Plan (05/24/2021 10:39 AM CONCILIATOR): Continue Wellbutrin and Cymbalta Assessment & Plan (12/24/2020 9:07 AM CDT): Continue wellbutrin and cymbalta Assessment & Plan (08/31/2020 9:35 AM CONCILIATOR): Continue wellbutrin and cymbalta Assessment & Plan (02/18/2020 9:47 PM CDT): Stable with the Cymbalata Assessment & Plan (08/13/2019 8:59 AM CONCILIATOR): Stable with Cymbalta and Wellbutrin Assessment & [...] regimen. Med list updated to reflect the [id number] one daily and Prozac 40mg. Mixed hyperlipidemia 03/29/2018 Assessment & Plan (05/07/2024 8:54 PM CONCILIATOR): Encouraged patient to follow low fat/low chol [...] statin Assessment & Plan (09/06/2023 9:42 AM CONCILIATOR): Encouraged patient to follow low fat/low chol [...] statin Assessment & Plan (09/11/2021 11:26 PM CONCILIATOR): Encouraged patient to follow low fat/low chol diet like the Mediterranean diet. Increase good fats in the diet. Increase exercise. Monitor labs as needed. Continue statin Assessment & Plan (05/29/2021 8:22 PM CONCILIATOR): Encouraged patient to follow fat/low chol diet like the Mediterranean diet. Increase good fats in the diet. Increase exercise. Monitor labs as needed. Continue statin Assessment & Plan (05/24/2021 10:39 AM CONCILIATOR): Encouraged patient to follow fat/low chol diet like the Mediterranean diet. Increase good fats in the diet. Increase exercise. Monitor labs as needed. Continue statin Assessment & Plan (12/24/2020 9:07 AM CDT): Encouraged patient to follow fat/low chol diet like the Mediterranean diet. Increase good fats in the diet. Increase exercise. Monitor labs as needed. Continue statin Assessment & Plan (08/31/2020 9:34 AM CONCILIATOR): Encouraged patient to follow fat/low chol diet like the Mediterranean diet. Increase good fats in the diet. Increase exercise. Monitor labs as needed. Continue statin Assessment & Plan (02/18/2020 9:46 PM CDT): Encouraged patient to continue low fat/low chol diet. Continue exercise. Increase good fats in the diet. Monitor labs as needed. Assessment & Plan (08/13/2019 8:59 AM CONCILIATOR): Encouraged patient to continue low fat/low chol [...] future Assessment & Plan (09/06/2023 9:40 AM CONCILIATOR): Continue PPI Assessment & Plan (04/06/2023 7:36 PM CDT): Continue PPI p.r.n. Assessment & Plan (01/20/2023 8:13 PM CDT): Continue PPI Assessment & Plan (09/12/2022 6:13 PM CDT): Continue PPI p.r.n. Assessment & Plan (06/03/2022 3:40 PM CONCILIATOR): Pyrosis poorly controlled on Nexium. Pt has [...] PPI Assessment & Plan (09/11/2021 11:26 PM CONCILIATOR): Continue PPI Assessment & Plan (12/24/2020 9:05 AM CDT): Continue PPI Assessment & Plan (02/18/2020 9:45 PM CDT): Continue PPI. Saw Dr. Linton for increased GERD sxs. If persist, encouraged to followup again with Dr. Linton. Assessment & Plan (08/13/2019 8:58 AM CONCILIATOR): Stable with PPI Assessment & Plan (04/29/2019 [...] exertion) Assessment & Plan (06/22/2022 10:30 AM CONCILIATOR): Patient is not currently using inhalers. She [...] 10/14/2015 Assessment & Plan (08/02/2024 11:49 AM CONCILIATOR): Due to the patient stating the pressure [...] readjusted. She denied need for supplies. DME [facility] Assessment & Plan (05/07/2024 8:55 PM CONCILIATOR): Continue with CPAP. Assessment & Plan (04/21/2024 8:49 PM CDT): Continue per Dr. Dunn. Has all her needed supplies for CPAP which she is using every night. Continue with Requip 0.5 mg HS for restless leg Assessment & Plan (01/22/2024 8:08 PM CDT): Continue CPAP per Dr. Dunn Assessment & Plan (09/06/2023 9:40 AM CONCILIATOR): Continue CPAP Assessment & Plan (06/21/2023 10:14 AM CONCILIATOR): Patient continue to wear her CPAP at [...] CPAP Assessment & Plan (06/22/2022 10:31 AM CONCILIATOR): Will continue CPAP therapy at an auto titrating range of 7-20 cm water pressure. Denied need for supplies. [facility] Assessment & Plan (05/02/2022 9:15 [...] water pressure. Patient denied need for supplies. [employer] patient. Patient is benefitting CPAP Assessment & Plan (09/11/2021 11:22 PM CONCILIATOR): Continue CPAP. Patient has all needed supplies. Assessment & Plan (07/13/2021 11:27 AM CONCILIATOR): Due to the patient stating she does not have enough pressure in her machine, I have increased the pressure to 13 cm water pressure. The patient denied need for for supplies. [employer] patient. Have also ordered a new smart card set at 13 cm water pressure. Benefitting from CPAP therapy Assessment & Plan (05/29/2021 8:14 PM CONCILIATOR): Continue CPAP. Assessment & Plan (02/17/2021 11:09 AM CDT): The patient continues to be compliant with her CPAP at 8 cm water pressure. She has developed worsening daytime hypersomnia. She also has morning headaches and dry mouth. I have recommended proceeding with a CPAP titration study starting at 8 cm water pressure. Her DME is [facility]. Assessment & Plan (12/24/2020 9:04 AM CDT): Continue CPAP. Would like to see Pulm/sleep at [facility] as difficulty getting in consistently at [facility] and most of her care is now [facility] Assessment & Plan (02/18/2020 9:44 PM CDT): Continue CPAP Assessment & Plan (08/13/2019 8:46 AM CONCILIATOR): Using the CPAP. Has equipment as needed. [...] noted. Assessment & Plan (08/23/2024 10:16 AM CONCILIATOR): 02/2021 XR L knee with mild to moderate OA, now s/p B TKA. Following with ortho as planned. Assessment & Plan (07/30/2024 11:23 AM CONCILIATOR): 02/2021 XR L knee with mild to [...] March. Assessment & Plan (09/01/2023 3:42 PM CONCILIATOR): 02/2021 XR L knee with mild to moderate OA, R knee negative. Had injections with ortho without benefit, now s/p L TKA. Assessment & Plan (06/30/2023 12:46 PM CONCILIATOR): 02/2021 XR L knee with mild to [...] g/d. Assessment & Plan (07/15/2022 1:41 PM CONCILIATOR): 02/2021 XR L knee with mild to moderate OA, R knee negative. Had injections with ortho with benefit. Unable to afford PT. Can continue Tylenol Arthritis, not to exceed 4 g/d. Assessment & Plan (06/03/2022 9:58 AM CONCILIATOR): 02/2021 XR L knee with mild to [...] evaluation. Assessment & Plan (09/03/2021 11:27 AM CONCILIATOR): XR L knee with mild to moderate [...] able. Assessment & Plan (06/04/2021 10:27 AM CONCILIATOR): XR L knee with mild to moderate [...] above. Assessment & Plan (09/03/2020 12:23 PM CONCILIATOR): 10/27/2017 XR L knee: mild tricompartmental OA. Will continue meloxicam as above. Assessment & Plan (07/09/2020 12:24 PM CONCILIATOR): 10/27/2017 XR L knee: mild tricompartmental OA. Will continue meloxicam as above. In the future may consider trial of PT. 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 Assessment & Plan (08/23/2024 12:54 PM CONCILIATOR): Moderate cdai with report of increasing pain, [...] needed. Assessment & Plan (07/30/2024 11:22 AM CONCILIATOR): Moderate cdai with report of increased morning [...] phone visit with labs near her home ([facility] in [place]), but the following month will need to plan for an in person visit. She expressed understanding and agreement with this plan. Continue methotrexate 20 mg weekly, folic acid 2 mg daily, and hydroxychloroquine 200 mg BID. Labs today as below. Assessment & Plan (05/07/2024 8:55 PM CONCILIATOR): Managed by [facility]. Currently on Plaquenil and methotrexate and Orencia folic acid Mobic and gabapentin. Stressed she needs to be in contact with her data collector on when and which medicines to stop for the surgery. Assessment & Plan (04/21/2024 8:49 PM CDT): Continue per [facility]. They currently manage her rheumatoid arthritis [...] Plan (01/22/2024 8:17 PM CDT): Continue per [facility] as they manage her condition. Assessment & Plan (11/24/2023 9:58 AM CDT): Low cdai without inflammatory sounding pain. Will continue methotrexate 20 mg weekly, folic acid 2 mg daily, hydroxychloroquine 200 mg BID, and Orencia and monitor. Labs today as below. Follow up in 3 months or sooner as needed. Assessment & Plan (09/06/2023 9:42 AM CONCILIATOR): Rheumatoid arthritis is managed by [facility]. Currently on Plaquenil methotrexate Orencia and folic acid Assessment & Plan (09/01/2023 3:39 PM CONCILIATOR): Overall stable without notable synovitis and no inflammatory sounding pain. Will continue methotrexate 20 mg weekly, folic acid 2 mg daily, hydroxychloroquine 200 mg BID, and Orencia and monitor. Labs today as below. Follow up in 3 months or sooner as needed. Assessment & Plan (08/03/2023 8:28 AM CONCILIATOR): Continue with rheumatology. Assessment & Plan (06/30/2023 12:43 PM CONCILIATOR): Overall stable without notable synovitis and no inflammatory sounding pain. Will continue methotrexate 20 mg weekly, folic acid 2 mg daily, hydroxychloroquine 200 mg BID, and Orencia and monitor. Labs today as below. Assessment & Plan (06/02/2023 4:49 PM CONCILIATOR): Continue per Rheumatology Assessment & Plan (04/06/2023 7:35 PM CDT): Continue per Rheumatology. She has been in discussion with them on what medications to stop prior to her knee surgery. She states she was told to take all of her medicines accept the Orencia. Assessment & Plan (01/20/2023 8:12 PM CDT): Continue per Rheumatology [facility] Assessment & Plan (01/13/2023 3:42 [...] Plan (09/12/2022 6:06 PM CDT): Continue with [facility] Assessment & Plan (07/15/2022 1:41 PM CONCILIATOR): Low cdai. Significantly improved after IM triamcinolone [...] needed. Assessment & Plan (06/03/2022 3:37 PM CONCILIATOR): High cdai. Previously felt well controlled with current regimen. Due to burden of disease will give patient a triamcinolone injection. Patient made aware of SE of steroids including but not limited to HTN, increased blood glucose, cataracts, glaucoma, AVN, and osteoporosis with care home use. Should she flare again shortly after [...] (01/23/2022 4:57 PM CDT): Continue management per [facility] Assessment & Plan (12/07/2021 9:02 AM CDT): Low cdai. Denies inflammatory sounding joint pain. Continue methotrexate 25 mg weekly, folic acid to 2 mg daily, Rinvoq 15 mg daily, hydroxychloroquine 200 mg BID, and cyclobenzaprine 5 mg qhs and monitor. Labs today as below. Plan for follow up in 3 months or sooner as needed. Assessment & Plan (09/11/2021 11:14 PM CONCILIATOR): Continue per [facility] Assessment & Plan (09/03/2021 11:25 AM CONCILIATOR): cdai = 12. Pt suspects increased joint [...] needed. Assessment & Plan (06/04/2021 10:25 AM CONCILIATOR): Low cdai. Denies inflammatory sounding pain at present. Will plan to continue methotrexate 25 mg weekly, folic acid to 2 mg daily, Rinvoq 15 mg daily, hydroxychloroquine 200 mg BID, and cyclobenzaprine 5 mg qhs and monitor. Labs today as below. Plan for follow up in 3 months or sooner as needed. Assessment & Plan (05/31/2021 9:15 PM CONCILIATOR): Continue per Rheumatology Assessment & Plan (05/29/2021 8:13 PM CONCILIATOR): Continue per Rheumatology. Currently on Plaquenil methotrexate and folic acid. Assessment & Plan (05/24/2021 10:38 AM CONCILIATOR): Continue per Rheumatology Assessment & Plan (03/05/2021 [...] needed. Assessment & Plan (09/03/2020 12:22 PM CONCILIATOR): Low cdai. Continues to feel improved with [...] needed. Assessment & Plan (08/31/2020 9:34 AM CONCILIATOR): Continue per [facility] Assessment & Plan (07/09/2020 12:22 PM CONCILIATOR): 64yoF with a h/o seropositive RA diagnosed [...] time. Assessment & Plan (06/04/2020 11:14 AM CONCILIATOR): 64yoF with a h/o seropositive RA diagnosed [...] needed. Assessment & Plan (05/14/2020 9:33 PM CONCILIATOR): Refer to new Political Aide as Dr. Soto has . Assessment & Plan (02/18/2020 9:46 PM CDT): Continue per Rheum Assessment & Plan (08/13/2019 8:59 AM CONCILIATOR): Continue per Dr. Soto Assessment & Plan [...] responding to Reclast. Forteo was tried by [facility] and she could not tolerate. Has [...] of her osteoporosis, recommended evaluation by the [facility], unfortunately their first available appt was in November 2024. Recommended today that she check with [facility] (at [facility]) to see how far out they are scheduling new patients, though she does not like this option due to distance from her house. Assessment & Plan (09/06/2023 9:40 AM CONCILIATOR): Managed by [facility]. Per patient they are making a referral to bone metabolism at [facility] she has not seen significant improvement with the Forteo or the Reclast. Assessment & Plan (09/01/2023 3:43 PM CONCILIATOR): DEXA: Lspine BMD 0.809 Tscore -2.2, L [...] of her osteoporosis, recommend evaluation by the [facility], provided contact info for Dr. Castillo. Pt in agreement with plan. Assessment & Plan (06/30/2023 12:49 PM CONCILIATOR): DEXA: Lspine BMD 0.809 Tscore -2.2, L [...] PM CDT): Continue to monitor. Managed by [facility]. Patient is on Reclast calcium vitamin-D [...] exercise Assessment & Plan (07/15/2022 1:42 PM CONCILIATOR): 01/27/2021 DEXA: Lspine -1.8, L femoral neck -1.9, L total hip -1.2, R femoral neck -2.3, R total hip -1.0, FRAX major 32% and hip 7%. Received Reclast 07/2021. Continue yearly Reclast, scheduled for 07/22 Assessment & Plan (06/03/2022 3:38 PM CONCILIATOR): 01/27/2021 DEXA: Lspine -1.8, L femoral neck [...] Plan (01/23/2022 5:02 PM CDT): Managed by [facility] currently on Reclast calcium and vitamin-D Assessment & Plan (12/07/2021 9:04 AM CDT): 01/27/2021 DEXA: Lspine -1.8, L femoral neck -1.9, L total hip -1.2, R femoral neck -2.3, R total hip -1.0, FRAX major 32% and hip 7%. Received Reclast 07/2021. Continue yearly Reclast. Assessment & Plan (09/03/2021 11:26 AM CONCILIATOR): 01/27/2021 DEXA: Lspine -1.8, L femoral neck -1.9, L total hip -1.2, R femoral neck -2.3, R total hip -1.0, FRAX major 32% and hip 7%. Received Reclast 07/2021. Continue yearly reclast and daily vitamin D-calcium supplement. Assessment & Plan (06/04/2021 10:27 AM CONCILIATOR): 01/27/2021 DEXA: Lspine -1.8, L femoral neck [...] order provided today, she will schedule at [facility] Assessment & Plan (12/24/2020 9:06 AM CDT): Continue Reclast thru Rheum Continue calcium, vitD and exercise Assessment & Plan (12/03/2020 10:45 AM CDT): Vitamin D level was 68. Received Reclast 07/09/2020. Last DEXA per available records was 01/31/2019, due this summer - order provided today, she will schedule at [facility] Assessment & Plan (09/03/2020 12:23 PM CONCILIATOR): Vitamin D level was 68. Received Reclast 07/09/2020. Last DEXA per available records was 01/31/2019, due this summer. Assessment & Plan (07/09/2020 12:23 PM CONCILIATOR): Overdue for Reclast, last infusion was 03/28/2019, will receive infusion today. Vitamin D level was 68 Last DEXA per available records was 01/31/2019 Assessment & Plan (06/04/2020 11:15 AM CONCILIATOR): Overdue for Reclast, last infusion was 03/28/2019, will check benefits. Recheck vitamin D level now. Last DEXA per available records was 01/31/2019 Assessment & Plan (02/18/2020 9:46 PM CDT): Calcium, vit D and exercise. Continue to monitor DXA Assessment & Plan (08/13/2019 8:58 AM CONCILIATOR): Continue with Calcium, Vit D and Exercise. [...] Krishnamurthy. 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 Daniels Stressed importance of very close follow-up BMI 37.0-37.9, adult 09/06/2023 024 Assessment & Plan (10/13/2023 7:38 AM CDT): Discussed the patient's BMI. The BMI is above average. BMI management plan is completed. BMI Follow-up includes: nutrition counseling, exercise counseling and education provided. Assessment & Plan (09/06/2023 9:42 AM CONCILIATOR): Discussed the patient's BMI. The BMI is above average. BMI management plan is completed. BMI Follow-up includes: nutrition counseling, exercise counseling and education provided. Hyperglycemia 09/06/2023 09/06/2023 Positive depression screening 09/06/2023 09/06/2023 Annual physical exam 09/06/2023 024 Assessment & Plan (09/06/2023 9:43 AM CONCILIATOR): Encouraged healthy lifestyle, good nutrition and exercise. Encouraged Calcium and Vitamin D and weight bearing exercise for bone health. Reviewed immunizations Reviewed age appropirate screenings. Right knee pain 08/09/2023 09/06/2023 Sinus congestion 08/07/2023 09/06/2023 Assessment & Plan (08/07/2023 7:54 PM CONCILIATOR): Persistent sinusitis symptoms along with cough. Will start doxy b.i.d.. Start antihistamine (Claritin OR Zyrtec), Mucinex 12hour and Steroid nasal spray (Flonase). Push fluids. Rest. Supportive care. If sxs worsen or don\'t improve, pt is to followup in the office. Acute cough 08/07/2023 01/22/2024 Assessment & Plan (08/07/2023 7:55 PM CONCILIATOR): Persistent sinusitis symptoms along with cough. Will start doxy b.i.d.. Start antihistamine (Claritin OR Zyrtec), Mucinex 12hour and Steroid nasal spray (Flonase). Push fluids. Rest. Supportive care. If sxs worsen or don\'t improve, pt is to followup in the office. BMI 35.0-35.9,adult 08/03/2023 09/06/19 24 Assessment & Plan (08/07/2023 7:51 PM CONCILIATOR): Discussed the patient's BMI. The BMI is above average. BMI management plan is completed. BMI Follow-up includes: nutrition counseling, exercise counseling and education provided. Assessment & Plan (08/03/2023 8:29 AM CONCILIATOR): Discussed the patient's BMI. The BMI is [...] 01/22/2024 Assessment & Plan (06/02/2023 4:57 PM CONCILIATOR): Later in the day received critical lab call for a CO2 value at 42. My staff contacted the patient and she was instructed to go to the ER for further evaluation to determine underlying cause. She states throughout the day she has noticed a little bit more shortness of breath. [facility] Charge nurse was notified of the arrival [...] surgery. Will defer cardiac clearance to her all around presser. Her chronic medical conditions are stable. [facility] as instructed her to hold the [...] Dr. Ge Sexton on May 04 at [facility]. Need for vaccination for Strep pneumoniae 01/20/2023 [...] do not resolve BMI 39.0-39.9,adult 12/07/2022 12/22/19 23 Assessment & Plan (12/12/2022 7:44 PM CDT): [...] symptoms worsen or do not respond to [id number] allergy medicines within the next week she may call and will consider antibiotic. Left knee pain 09/13/2022 09/06/2023 BMI 39.0-39.9,adult 08/23/2022 11/09/19 23 Assessment & Plan (10/25/2022 3:32 PM CDT): Discussed the patient's BMI. The BMI is above average. BMI management plan is completed. BMI Follow-up includes: nutrition counseling, exercise counseling and education provided. Assessment & Plan (08/23/2022 2:19 PM CONCILIATOR): Discussed the patient's BMI. The BMI is above average. BMI management plan is completed. BMI Follow-up includes: nutrition counseling, exercise counseling and education provided. Annual physical exam 08/22/2022 Assessment & Plan (09/12/2022 6:16 PM CDT): [...] plans Assessment & Plan (07/18/2022 10:20 AM CONCILIATOR): CT revealed pelvic lipomatosis that is compressing [...] 12/20/2022 Assessment & Plan (07/18/2022 10:21 AM CONCILIATOR): CT revealed pelvic lipomatosis that is compressing [...] plan, Assessment & Plan (07/08/2022 12:33 PM CONCILIATOR): Patient has had dysuria. She was started [...] 07/08/202204/06 Assessment & Plan (07/18/2022 10:21 AM CONCILIATOR): CT revealed pelvic lipomatosis that is compressing [...] plan, Assessment & Plan (07/08/2022 5:58 PM CONCILIATOR): Images from the original note were not [...] STAT abd/pelvis with and without contrast at [facility]. Check labs STAT. STAT CT Abd/pelvis without [...] 09/06/2023 Assessment & Plan (07/08/2022 12:33 PM CONCILIATOR): Patient has had dysuria. She was started [...] without contrast at [facility]. Check labs STAT. Assessment & Plan (07/06/2022 8:50 AM CONCILIATOR): Pt presents with dysuria. Urine dip completed. [...] 35.00-39.99. Assessment & Plan (07/18/2022 10:23 AM CONCILIATOR): Discussed the patient's BMI. The BMI is above average. BMI management plan is completed. BMI Follow-up includes: nutrition counseling, exercise counseling and education provided. Assessment & Plan (07/08/2022 12:30 PM CONCILIATOR): Discussed the patient's BMI. The BMI is [...] She has received multiple injections from her data collector regarding her knee but yesterday when she [...] 01/23/2022 Assessment & Plan (09/11/2021 11:28 PM CONCILIATOR): Patient has never had a full skin exam. She has quite a few lesions scattered and would benefit from a full exam. Will make referral Annual physical exam 09/11/2021 022 Assessment & Plan (09/11/2021 11:28 PM CONCILIATOR): Encouraged healthy lifestyle, good nutrition and exercise. Encouraged Calcium and Vitamin D and weight bearing exercise for bone health. Reviewed immunizations Reviewed age appropirate screenings. Cough 08/13/2021 01/23/2022 Assessment & Plan (08/13/2021 3:43 PM CONCILIATOR): Patient to presume positive COVID/FLU until results are available and plan to self isolate for up to 10 days from the onset of sxs. Check COVID/FLU test thru [facility] collection site in [place]. Let pt know the newest CDC recommendations [...] future. Assessment & Plan (07/13/2021 11:28 AM CONCILIATOR): I have ordered the patient Claritin 10 [...] provided. Assessment & Plan (09/11/2021 11:27 PM CONCILIATOR): Obesity is unchanged. Discussed the patient's BMI. The BMI is above average. BMI management plan is completed. BMI Follow-up includes: nutrition counseling, exercise counseling and education provided. Assessment & Plan (05/29/2021 8:24 PM CONCILIATOR): Obesity is unchanged. Discussed the patient's BMI. The BMI is above average. BMI management plan is completed. BMI Follow-up includes: nutrition counseling, exercise counseling and education provided. Assessment & Plan (05/12/2021 1:26 PM CONCILIATOR): Obesity is unchanged. Discussed the patient's BMI. The BMI is above average. BMI management plan is completed. BMI Follow-up includes: nutrition counseling, exercise counseling and education provided. BMI 37.0-37.9, adult 05/12/2021 022 Assessment & Plan (09/11/2021 11:27 PM CONCILIATOR): Obesity is unchanged. Discussed the patient's BMI. The BMI is above average. BMI management plan is completed. BMI Follow-up includes: nutrition counseling, exercise counseling and education provided. Assessment & Plan (05/29/2021 8:24 PM CONCILIATOR): Obesity is unchanged. Discussed the patient's BMI. The BMI is above average. BMI management plan is completed. BMI Follow-up includes: nutrition counseling, exercise counseling and education provided. Assessment & Plan (05/12/2021 1:26 PM CONCILIATOR): Obesity is unchanged. Discussed the patient's BMI. The BMI is above average. BMI management plan is completed. BMI Follow-up includes: nutrition counseling, exercise counseling and education provided. Tinea corporis 04/14/2021 01/23/2022 Assessment & Plan (05/31/2021 9:15 PM CONCILIATOR): Improving with Lotrisone. Keep the area clean and dry Assessment & Plan (05/29/2021 8:24 PM CONCILIATOR): Lotrisone to pharmacy. Encouraged her to keep the area clean and dry use her dryer to dry the skin before applying the cream. She is to call if symptoms worsen or do not resolve. Need for immunization against influenza 04/14/2021 05/31/2021 Assessment & Plan (05/29/2021 8:24 PM CONCILIATOR): Fluid updated in the office Medicare annual wellness visit, subsequent 04/13/2021 05/31/2021 Assessment & Plan (05/29/2021 8:23 PM CONCILIATOR): Encouraged healthy lifestyle, good nutrition and exercise. [...] 12/30/2020 Assessment & Plan (08/31/2020 9:31 AM CONCILIATOR): Error. This should be right calf but PT order sent and corrected so unable to remove. Fatigue 08/31/2020 09/06/2023 Assessment & Plan (04/06/2023 7:43 PM CDT): Probably multifactorial. Check labs and followup to re-evaluate Assessment & Plan (05/02/2022 9:16 PM CDT): Probably multifactorial. Check labs and followup to re-evaluate Assessment & Plan (08/31/2020 9:34 AM CONCILIATOR): Probably multifactorial. Check labs and followup to re-evaluate Pain in both lower extremities 08/31/2020 09/06/2023 Assessment & Plan (09/01/2023 3:41 PM CONCILIATOR): Cramping lower leg pain has resolved with [...] 021 Assessment & Plan (08/31/2020 9:33 AM CONCILIATOR): Obesity is unchanged. Discussed the patient's BMI. The BMI is above average. BMI management plan is completed. BMI Follow-up includes: nutrition counseling, exercise counseling and education provided. Pain of right calf 08/26/2020 Assessment & Plan (08/31/2020 9:31 AM CONCILIATOR): This is a significant, separately identifiable problem that was evaluated and managed on the same day as the wellness exam Unable to rule out DVT with her calf pain/sxs. Check STAT Venous doppler. Recvd Results and discussed with patient via phone. Negative for DVT. Recommend PT. Prefers [place] Annual physical exam 08/24/2020 021 Assessment & Plan (08/31/2020 9:34 AM CONCILIATOR): Encouraged healthy lifestyle, good nutrition and exercise. Encouraged Calcium and Vitamin D and weight bearing exercise for bone health. Reviewed immunizations Reviewed age appropirate screenings. Dizziness 05/07/2020 09/06/2023 Assessment & Plan (05/14/2020 9:35 PM CONCILIATOR): Suspect the dizziness is inner ear related. [...] imaging. Assessment & Plan (05/07/2020 1:49 PM CONCILIATOR): Declines to report to er now 'I [...] 05/14/2020 Assessment & Plan (05/07/2020 1:49 PM CONCILIATOR): Declines to report to er now 'I [...] 12/30/2020 Assessment & Plan (05/07/2020 1:49 PM CONCILIATOR): Declines to report to er now 'I [...] provided Assessment & Plan (05/31/2021 9:15 PM CONCILIATOR): Mammogram order provided Assessment & Plan (02/18/2020 9:47 PM CDT): Mammogram order provided today Medicare annual wellness visit, subsequent 02/15/2020 02/15/2020 Precordial pain 09/04/2019 09/06/2023 Assessment & Plan (08/07/2023 7:50 PM CONCILIATOR): Workup in the hospital. Cardiology states her [...] inhaler. Assessment & Plan (07/13/2021 11:26 AM CONCILIATOR): The patient will continue with Dulera 2 [...] is breathing well. Annual physical exam 08/13/2019 08/ 020 Assessment & Plan (08/13/2019 8:59 AM CONCILIATOR): Encouraged healthy lifestyle, good nutrition and exercise. Encouraged Calcium and Vitamin D and weight bearing exercise for bone health. Reviewed immunizations Reviewed age appropirate screenings. Obesity, morbid, BMI 40.0-49.9 08/13/2019 09/23/2020 Assessment & Plan (08/26/2020 7:10 AM CONCILIATOR): Obesity is unchanged. Discussed the patient's BMI. The BMI is above average. BMI management plan is completed. BMI Follow-up includes: nutrition counseling, exercise counseling and education provided. Assessment & Plan (05/14/2020 9:33 PM CONCILIATOR): Obesity is unchanged. Discussed the patient's BMI. [...] provided. Assessment & Plan (08/13/2019 8:58 AM CONCILIATOR): Obesity is unchanged. Discussed the patient's BMI. [...] change Assessment & Plan (08/13/2019 9:01 AM CONCILIATOR): This is a significant, separately identifiable problem [...] 01/22/2024 Assessment & Plan (09/06/2023 9:42 AM CONCILIATOR): Probably multifactorial. Check labs and followup to re-evaluate Assessment & Plan (09/03/2021 11:28 AM CONCILIATOR): She notes increased fatigue and lack of [...] re-evaluate Assessment & Plan (08/13/2019 9:08 AM CONCILIATOR): Probably multifactorial. Check labs and followup to re-evaluate Check labs prior to next visit BMI 40.0-44.9, adult 08/02/2019 020 Assessment & Plan (08/13/2019 8:57 AM CONCILIATOR): Obesity is unchanged. Discussed the patient's BMI. The BMI is above average. BMI management plan is completed. BMI Follow-up includes: nutrition counseling, exercise counseling and education provided. Assessment & Plan (08/02/2019 7:21 AM CONCILIATOR): Obesity is unchanged. Discussed the patient's BMI. The BMI is above average. BMI management plan is completed. BMI Follow-up includes: nutrition counseling, exercise counseling and education provided. Morbid obesity 08/02/2019 08/13/2019 Assessment & Plan (08/02/2019 7:20 AM CONCILIATOR): Obesity is unchanged. Discussed the patient's BMI. The BMI is above average. BMI management plan is completed. BMI Follow-up includes: nutrition counseling, exercise counseling and education provided. Acute non-recurrent maxillary sinusitis 08/02/2019 08/13/2019 Assessment & Plan (08/02/2019 7:47 AM CONCILIATOR): Start antibiotic, antihistamine, Mucinex and Steroid nasal [...] foot. She is being sent directly to [facility] and they were working her in today. [...] 21 Assessment & Plan (05/14/2020 9:33 PM CONCILIATOR): Completed Doxy and steroid. No s/s infection. [...] non-food rewards, etc). BMI 38.0-38.9,adult 11/01/2018 01/13/20 22 Assessment & Plan (11/03/2021 9:17 AM CDT): [...] p.r.n. Assessment & Plan (08/13/2019 8:59 AM CONCILIATOR): Continue with NSAIDs prn Atheroscler of [place] artery of both legs with intermit claudication 10/31/2018 12/20/2022 Assessment & Plan (09/11/2021 11:23 PM CONCILIATOR): Continue per vascular. She is on aspirin and statin Assessment & Plan (12/24/2020 9:03 AM CDT): Sxs stable. On ASA, statin and encouraged daily exercise. Assessment & Plan (02/18/2020 9:43 PM CDT): Continue per cardio. On ASA and statin Assessment & Plan (08/13/2019 8:45 AM CONCILIATOR): Continues with Dr. Alonso salmeron Assessment & Plan (11/01/2018 11:00 PM CDT): Pt sxs well controlled. On ASA Coronary artery disease of n ative artery of [place] heart with stable angina pectoris 10/31/2018 12/30/2020 Assessment & Plan (08/13/2019 8:36 AM CONCILIATOR): On ASA and Nitrate. Continue per cardio Depression 07/16/2018 09/11/2021 Frontal sinusitis 06/26/2018 12/24/2020 Leukopenia 03/29/2018 12/30/2020 Other chronic pain 08/05/2017 3 Chronic seasonal allergic rh initis due to pollen 04/25/2017 12/30/2020 Assessment & Plan (12/24/2020 9:03 AM CDT): Continue current regimen with singulair and otc Assessment & Plan (02/18/2020 9:44 PM CDT): Continue with otc regimen Assessment & Plan (08/13/2019 8:46 AM CONCILIATOR): Continue current regimen Assessment & Plan (11/01/2018 [...] potassium Assessment & Plan (09/11/2021 11:26 PM CONCILIATOR): Bp is stable/in acceptable range for any co-morbidities. Encouraged to limit sodium intake and exercise for weight control. Currently stable without medication Assessment & Plan (05/29/2021 8:19 PM CONCILIATOR): Bp is stable/in acceptable range for any co-morbidities. Encouraged to limit sodium intake and exercise for weight control. Continue Lasix is helping with the swelling and addition. Blood pressure stable Assessment & Plan (05/24/2021 10:38 AM CONCILIATOR): Continue Lasix potassium Assessment & Plan (12/24/2020 9:05 AM CDT): Bp is stable/in acceptable range for any co-morbidities. Encouraged to limit sodium intake and exercise for weight control. Assessment & Plan (08/31/2020 9:32 AM CONCILIATOR): Bp is stable/in acceptable range for any co-morbidities. Encouraged to limit sodium intake and exercise for weight control. Stable with laxis currently Assessment & Plan (02/18/2020 9:44 PM CDT): Bp is stable/in acceptable range for any co-morbidities. Encouraged to limit sodium intake and exercise for weight control. Assessment & Plan (08/13/2019 8:57 AM CONCILIATOR): Bp is stable/in acceptable range for any [...] difficulty pulling them. Recommend finding some on [employer] that fit her calf that she can zip on and off. Showed them to her on [employer] and where to order them. She states she will try to get them. Assessment & Plan (05/31/2021 9:16 PM CONCILIATOR): Improving slowly. May have been due to the Relafen. She is on 60 of Lasix with potassium 10 mEq daily. Continue with current plan. Keep legs elevated. Utilize compressi to improve cleared. on hose. Call if symptoms worsen or do not continue to improve. Assessment & Plan (05/29/2021 8:23 PM CONCILIATOR): Persistent lower extremity edema that has improved [...] CMP. Assessment & Plan (05/24/2021 10:39 AM CONCILIATOR): Patient that her swelling was improving since discharge for over the last day or so it seems to be increasing. Will increase the Lasix to 40mg Start K 10meq daily Recheck labs in 5 days Assessment & Plan (08/31/2020 9:33 AM CONCILIATOR): Continue lasix Palpitations 12/08/2015 12/30/2020 Overview (10/09/2016): Palpitations Other abnormal glucose 11/11/201508/31 Asthma 10/14/2015 12/24/2020 Assessment & Plan (08/13/2019 8:49 AM CONCILIATOR): Continue with current regimen and with Pulmonary Assessment & Plan (11/01/2018 10:53 PM CDT): Currently Stable with regimen. Monitor closely with current allergy season. Followup Dr. Gomez as directed. Menopause 10/14/2015 12/30/2020 Cervical pain (neck) 10/14/2015 023 Encounters Date Type Department Care Team Description 08/29/2024 Nurse Triage [facility] Family Medicine [address] [place] [address] Alee Elizondo PA 08/29/2024 Telephone [facility] Pulmonary [place] [address] [place] [address] Shailesh Dunn MD Med Refill (Ropinirol HCL 0.5MG tab) 08/24/2024 Results Follow-Up [facility] [address] [place] [phone] Sangita Farrar PA 08/23/2024 11:30 AM CONCILIATOR Office Visit [facility] [address] [place] [phone] Sangita Farrar PA 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) (HCC) (Primary Dx); Primary osteoarthritis involving multiple joints; Encounter for medication monitoring 08/23/2024 Telephone [facility] [address] [place] [phone] Sangita Farrar PA Orencia Approved 08/21/2024 Telephone [facility] [address] [place] [phone] Kelsie Branhamfer 08/02/2024 11:45 AM CONCILIATOR Office Visit [facility] Pulmonary [address] [phone] Magaly Snider NP OWEN on CPAP (Primary Dx); OWEN (obstructive sleep apnea); PLMD (periodic limb movement disorder) 08/02/[address] [phone] Shailesh Dunn MD Orders Only 08/01/2024 Orders Only [facility] [address] [place] [address] Alee Elizondo PA Pre-diabetes (Primary Dx); Mixed hyperlipidemia; Fatigue, unspecified type 07/30/2024 9:00 AM CONCILIATOR Office Visit [facility] [address] [place] [phone] Sangita Farrar PA 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) (HCC) (Primary Dx); Primary osteoarthritis involving multiple joints; Encounter for medication monitoring 07/24/2024 2:00 PM CONCILIATOR Office Visit [facility] Medicine [address] [place] [phone] Michael Motta MD Status post total knee replacement using cement, right (Primary Dx) 07/24/2024 1:27 PM CONCILIATOR - 07/24/2024 11:59 PM CONCILIATOR Hospital Encounter [facility] [address] [place] [address] Status post total knee replacement using cement, right Discharge Disposition: Discharge to home or self care 07/24/2024 Telephone [place] [id number] [place] [phone] Alee Elizondo PA Referral Request (/) 07/12/2024 Telephone [facility] [address] [place] [address] [place] [phone] Michael Motta MD ret call 07/03/[address] [place] [phone] Alee Elizondo PA Symptom Based Call 06/28/[address] [place] [phone] Alee Elizondo PA Forms Request 06/26/2024 Telephone [facility] [address] [place] [phone] Michel Rae PA Scheduling Appointments 06/25/2024 Telephone [facility] [address] [place] [phone] Michael Motta MD Post-op Problem 06/22/[address] [place] [phone] Alee Elizondo PA 06/21/2024 9:15 AM CONCILIATOR Office Visit [facility] [address] [place] [phone] Michel Rae PA Status post total knee replacement using cement, right (Primary Dx); Primary osteoarthritis of right knee; Orthopedic aftercare; Right knee pain, unspecified chronicity 06/14/2024 9:00 AM CONCILIATOR Office Visit [facility] [address] [place] [phone] Michel Rae PA Status post total knee replacement using cement, right (Primary Dx); Orthopedic aftercare; Right knee pain, unspecified chronicity; Primary osteoarthritis of right knee 06/12/2024 Telephone [facility] [address] [place] [phone] Michael Motta MD 06/07/2024 Telephone [facility] Family Medicine [address] [place] [address] Alee Elizondo PA Referral Request 05/30/2024 7:34 AM CONCILIATOR Anesthesia Event [facility] OR [address] [place] [phone] Karen Olmstead MD Boivin, James R., MD 05/30/2024 7:30 AM CONCILIATOR - 05/30/2024 10:15 AM CONCILIATOR Surgery [facility] OR [address] [place] [phone] Michael Motta MD RIGHT TOTAL KNEE ARTHROPLASTY 05/30/2024 7:20 AM CONCILIATOR Ancillary Procedure [facility] OR [address] [place] [phone] 05/30/2024 7:15 AM CONCILIATOR Ancillary Procedure [facility] OR [address] [place] [phone] 05/30/2024 5:23 AM CONCILIATOR - 06/05/2024 2:12 PM CONCILIATOR Hospital Encounter [address] [address] Michael Motta MD Primary osteoarthritis of right knee (Primary Dx); Primary osteoarthritis of other site Discharge Disposition: Discharge to home, home health skilled care from Last 3 Months Immunizations Immunization Administration Dates Next Due COVID-19 mRNA (Fetch It) 0.3 m L (30 mcg) vaccine (12 [...] 07/06/2014, Tdap 03/08/2021,08/20/2019 ZOSTER Recombinant 12/13/2017,12/12/2017, 018 Surgical History Surgery Date Site/Laterality Comments KNEE ARTHROSCOPY 07/04/2008 - 07/03/2009 Arthroscopy knee left, had also in high school HYSTERECTOMY 07/04/1989 - 07/03/1990 Hysterectomy CHOLECYSTECTOMY KIDNEY STONE SURGERY ENDOVENOUS ABLATION SAPHENOU S VEIN W/ LASER 10/02/2016 - 10/31/2016 REPLACEMENT TOTAL KNEE 05/04/2023 Left JOINT REPLACEMENT left knee Medical History Medical History Date Comments Calculus of kidney Nephrolithias is Asthma Asthma as a chil d states Arthritis Allergic rhinitis Autoimmune disease (CMS/HCC) ([facility]) GERD (gastroesophageal reflux disease) Sinusitis HL (hearing loss) right ear hear ing aide Congenital malformation left arm Sleep apnea wears cpap night ly Obesity RA (rheumatoid arthritis) ([facility]) Prediabetes diet controlled Osteoporosis Family History Medical History Relation Name Comments Allergies Brother Allergies; Arthritis Father Salomón COPD Father Salomón Cancer Father Salomón Colon cancer Father Salomón Cancer, colon; Coronary artery disease Father Salomón Mariela nary artery disease; Diabetes Father Salomón Diabetes mellit us; Diabetes Mother Jeanette Diabetes mellit us; Heart failure Mother Jeanette Congestive hea rt failure; Stroke Mother Jeanette Stroke; Relation Name Status Comments Brother Father Salomón Mother Jeanette Social History Tobacco Use Types Packs/Day Years Used Date Smoking Tobacco: Never Smokeless Tobacco: Never Tobacco Cessation:Counseling Given: Not Answered Comments:Never used Alcohol Use Standard Drinks/Week Comments No 0 (1 standard drink = 0.6 oz pur e alcohol) [facility] Utilities Answer Date Recorded In the past 12 months has [employer] electric, gas, oil, or water company [...] often do you attend chur ch or jainism services? 1 to 4 times per year 05/30/2024 Do you belong to any clubs o r organizations such as temple groups, unions, fraternal or athletic groups, or [...] place to sleep or slept in a correction (including now)? No 05/27/2023 Housing Stability Vital Sign Answer Jarrett e Recorded In the last 12 months, was t here a time when you were not able to pay the mortgage or rent on time? No 05/30/2024 In the past 12 months, how m any times have you moved where you were living? 0 05/30/2024 At any time in the past 12 m [facility], were you homeless or living in a correction (including now)? No 05/30/2024 Personal Safety Answer Date Recorded Have you ever been in or are you currently in a harmful physical or emotional relationship or is someone making you feel afraid or unsafe? Denies 05/30/2024 Comments No Sex and Gender Information Value Date Recorded Sex Assigned at Not on file Legal Sex Female 8:04 PM CONCILIATOR Gender Identity Female 02/15/2020 6:08 PM CDT Sexual Orientation Not on file Obstetrics History Last Filed Vital Signs Vital Sign Reading Time Taken Comments Blood Pressure 112/78 08/23/2024 11:24 AM CONCILIATOR Pulse 73 08/23/2024 11:24 AM CONCILIATOR Temperature 36.9 C (98.4 F) 08/02/2024 11:18 AM CONCILIATOR Respiratory Rate 18 08/02/2024 11:1 8 AM CONCILIATOR Oxygen Saturation 97% 08/23/2024 11: 24 AM CONCILIATOR Inhaled Oxygen Concentration - - Weight 88.4 kg (194 lb 12.8 oz) 025 11:24 AM CONCILIATOR Height 154.9 cm (5' 1 ) 08/23/2024 11:2 4 AM CONCILIATOR Body Mass Index 36.81 08/23/2024 11:24 AM CONCILIATOR Plan of Treatment Health Maintenance Due Date Last Done Comments Hepatitis B Screening 1973 Covid-19 Vaccine ( season) 2024 08/17/2023, 04/14/2023, 04/14/2023, Additional history exists Breast Cancer Screening-Mammogram 04/11/2025 04/11/2024, 05/31/2022, 05/29/2021, Additional history exists Well Visit 65+ 04/11/2025 04/11/2024, 03/0 11/2023, 04/06/2023, Additional history exists Osteoporosis Screening-Bone Density Scan 04/12/2025 04/12/2023, 01/27/2017, 07/11/2014 Depression Screening 05/01/2025 05/01/2024, 04/11/2024, 01/10/2024, Additional history exists Fall Risk Assessment 06/05/2025 06/05/2024, 04/11/2024, 01/10/2024, Additional history exists Colon Cancer Screening-Colonoscopy 07/27/2026 07/27/2021, 04/19/2016, 04/19/2016 DTaP/Tdap/Td Vaccine (3 - Td or Tdap) 03/08/2031 03/08/2021, 08/20/2019 Zoster Vaccine Completed 12/13/2017, 12/02, 10/10/2017 Hepatitis C Screening Completed 06/04/2020 Colon Cancer Screening-CT Colonography Discontinued 07/27/2021, 04/19/2016, 04/19/2016, Additional history exists Colon Cancer Screening-DNA Stool Discontinued 07/27/2021, 04/19/2016, 04/19/2016, Additional history exists Colon Cancer Screening-FIT Discontinued 07/27, 04/19/2016, 04/19/2016, Additional history exists Colon Cancer Screening-Sigmoidoscopy Discontinued 07/27/2021, 04/19/2016, 04/19/2016, Additional history exists Pneumococcal vaccine 65+ Completed 023, 08/21/2020, 07/06/2014, Additional history exists Influenza Vaccine Completed 04/11/2024, , 04/06/2023, Additional history exists Medical Devices Implanted Type Area Liquid Waste Treatment Plant Operator Device Identifier Shelf Expiration Date Model / Serial / Lot [employer] Simplex P Radiopaque Full Dose Cement Bone Sterile 6191-1-010 - [id number] Implanted:Qty: 2 on 05/04/2023 by Michael Motta MD at [facility] Bone Cement Left: Knee [employer] 05/03/2025 6191-1-010 / 6191-1-001 / [id number] [employer] Simplex P Radiopaque Full Dose Cement Bone Sterile 6191-1-010 - [id number] Implanted:Qty: 2 on 05/30/2024 by Michael Motta MD at [facility] Bone Cement Right: Patella [employer] [id number] 05/03/2026 6191-1-010 / / [id number] [employer] Persona 14mm 30+ Mm Knee Tibia Taper Extension Stem [id number] - [id number] - [id number] Implanted:Qty: 1 on 05/04/2023 by Michael Motta MD at [facility] Left: Knee [employer] [id number] 02/15/2033 [id number] / [id number] 14 / [id number] [employer] Persona Cemented Cruciate Retaining Knee Left 7 Narrow Component [id number] - [id number] 1 - [id number] Implanted:Qty: 1 on 05/04/2023 by Michael Motta MD at [facility] Left: Knee [employer] [id number] 10/25/2032 [id number] / 72-8139-605- 01 / [id number] [employer] Baseplate Tibial Knee Cemented Left Fixed Stemmed Persona Size D Tivanium [id number] - [id number] 1 - [id number] Implanted:Qty: 1 on 05/04/2023 by Michael Motta MD at [facility] Left: Knee [employer] [id number] 09/11/2032 [id number] / 21-9388-990- 01 / [id number] [employer] Persona 11mm Knee Left 6-7 C-D Insert Articular Vivacit-E Sterile [id number] - [id number] 1 - [id number] Implanted:Qty: 1 on 05/04/2023 by Michael Motta MD at [facility] Left: Knee [employer] [id number] 12/28/2025 [id number] / 95-4450-129- 11 / [id number] [employer] Persona 32mm Knee Component Patellar All Poly Latex Free [id number] - [id number] Implanted:Qty: 1 on 05/04/2023 by Michael Motta MD at [facility] [employer] 12/19/2027 [id number] / / [id number] [employer] Baseplate Tibial Knee Cemented Right Fixed Stemmed Persona Size C Tivanium [id number] - [id number] Implanted:Qty: 1 on 05/30/2024 by Michael Motta MD at [facility] Right: Knee [employer] [id number] 03/22/2033 [id number] / / [id number] [employer] Persona 29mm Knee Component Patellar All Poly Latex Free [id number] - [id number] Implanted:Qty: 1 on 05/30/2024 by Michael Motta MD at [facility] Right: Knee [employer] [id number] 12/18/2028 [id number] / / [id number] [employer] Persona 13mm Cruciate Retain Knee Right 6-7 Cd Insert Articular Latex Free [id number] - [id number] Implanted:Qty: 1 on 05/30/2024 by Michael Motta MD at [facility] Right: Patella [employer] [id number] 05/04/2025 [id number] / / [id number] [employer] Persona Cruciate Retaining Cemented Knee Right 7 Narrow Component [id number] - [id number] Implanted:Qty: 1 on 05/30/2024 by Michael Motta MD at [facility] Right: Knee [employer] [id number] 12/27/2033 [id number] / / [id number] [employer] Persona 14mm 30+ Mm Knee Tibia Taper Extension Stem [id number] - [id number] Implanted:Qty: 1 on 05/30/2024 by Michael Motta MD at [facility] Right: Knee [employer] [id number] 04/11/2034 [id number] / / [id number] Procedures Procedure Name Priority Date/Time Associated Diagnosis Comments COMPREHENSIVE METABOLIC PANEL Routine 08/23/2024 2:11 PM CONCILIATOR Encounter for medication monitoring CBC WITH AUTO DIFFERENTIAL Routine 08/23/2024 2:11 PM CONCILIATOR Encounter for medication monitoring VITAMIN B12 Routine 08/02/2024 7:41 AM CONCILIATOR Fatigue, unspecified type LIPID PANEL Routine 08/02/2024 7:41 AM CONCILIATOR Mixed hyperlipidemia HEMOGLOBIN A1C Routine 08/02/2024 7:41 AM CONCILIATOR Pre-diabetes COMPREHENSIVE METABOLIC PANEL Routine 08/02/2024 7:41 AM CONCILIATOR Mixed hyperlipidemia CBC WITH AUTO DIFFERENTIAL Routine 08/02/2024 7:41 AM CONCILIATOR Fatigue, unspecified type TSH Routine 08/02/2024 7:41 AM CONCILIATOR Fatigue, unspecified type ERYTHROCYTE SEDIMENTATION RATE Routine 07/30/2024 2:36 PM CONCILIATOR 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) (HCC) CRP (ACUTE PHASE) Routine 07/30/2024 2:3 6 PM CONCILIATOR 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) ([facility]) COMPREHENSIVE METABOLIC PANEL Routine 07/30/2024 2:36 PM CONCILIATOR Encounter for medication monitoring CBC WITH AUTO DIFFERENTIAL Routine 07/30/2024 2:36 PM CONCILIATOR Encounter for medication monitoring XR KNEE RIGHT 3 VIEWS Schedule Routine, Read Routine (OP Routine) 07/24/2024 1:35 PM CONCILIATOR Status post total knee replacement using cement, right MAGNESIUM Routine 06/14/2024 11:06 AM CONCILIATOR Muscle cramping EGFR Routine 06/05/2024 4:17 AM CONCILIATOR DIFFERENTIAL AUTO Routine 06/05/2024 4:1 7 AM CONCILIATOR CBC WITH AUTO DIFFERENTIAL Routine 06/05/2024 4:17 AM CONCILIATOR BASIC METABOLIC PANEL Routine 06/05/2024 4:17 AM CONCILIATOR EGFR Routine 06/04/2024 3:42 AM CONCILIATOR DIFFERENTIAL AUTO Routine 06/04/2024 3:4 2 AM CONCILIATOR CBC WITH AUTO DIFFERENTIAL Routine 06/04/2024 3:42 AM CONCILIATOR BASIC METABOLIC PANEL Routine 06/04/2024 3:42 AM CONCILIATOR EGFR Routine 06/03/2024 6:18 AM CONCILIATOR DIFFERENTIAL AUTO Routine 06/03/2024 6:1 8 AM CONCILIATOR CBC WITH AUTO DIFFERENTIAL Routine 06/03/2024 6:18 AM CONCILIATOR BASIC METABOLIC PANEL Routine 06/03/2024 6:18 AM CONCILIATOR EGFR Routine 06/02/2024 6:16 AM CONCILIATOR DIFFERENTIAL AUTO Routine 06/02/2024 6:1 6 AM CONCILIATOR CBC WITH AUTO DIFFERENTIAL Routine 06/02/2024 6:16 AM CONCILIATOR BASIC METABOLIC PANEL Routine 06/02/2024 6:16 AM CONCILIATOR DIFFERENTIAL AUTO Routine 06/01/2024 10:53 AM CONCILIATOR CBC WITH AUTO DIFFERENTIAL Routine 06/01/2024 10:53 AM CONCILIATOR EGFR Routine 06/01/2024 8:41 AM CONCILIATOR BASIC METABOLIC PANEL Routine 06/01/2024 8:41 AM CONCILIATOR EGFR Routine 05/31/2024 3:10 AM CONCILIATOR DIFFERENTIAL AUTO Routine 05/31/2024 3:1 0 AM CONCILIATOR CBC WITH AUTO DIFFERENTIAL Routine 05/31/2024 3:10 AM CONCILIATOR BASIC METABOLIC PANEL Routine 05/31/2024 3:10 AM CONCILIATOR IN AN PROCEDURE PLACEHOLDER Routine 05/30/2024 2:25 PM CONCILIATOR IN AN PROCEDURE PLACEHOLDER Routine 05/30/2024 2:24 PM CONCILIATOR IN AN PROCEDURE PLACEHOLDER Routine 05/30/2024 2:23 PM CONCILIATOR IN AN PROCEDURE PLACEHOLDER Routine 05/30/2024 2:22 PM CONCILIATOR XR KNEE RIGHT 1 OR 2 VIEWS ED Urgent/IP Urgent 05/30/2024 10:52 AM CONCILIATOR IN AN PROCEDURE PLACEHOLDER Routine 05/30/2024 8:18 AM CONCILIATOR IN AN PROCEDURE PLACEHOLDER Routine 05/30/2024 8:17 AM CONCILIATOR IN AN ELECTIVE SUPRAGLOTTIC AIRWAY Routine 05/30/2024 8:17 AM CONCILIATOR ARTHROPLASTY TOTAL KNEE 05/30/2024 7:34 AM CONCILIATOR Primary osteoarthritis of right knee Case Notes RTKA POCUS INJ SCIATIC NERVE IP Routine 05/30/2024 7:13 AM CONCILIATOR POCUS INJ FEMORAL NERVE IP Routine 05/30/2024 7:13 AM CONCILIATOR SCREENING MAMMOGRAM BILATERAL W DYLLAN Schedule Routine, Read Routine (OP Routine) 04/11/2024 7:33 AM CDT Breast cancer screening by mammogram DEXA AXIAL SKELETON BONE DENSITY 1 OR MORE SITES Schedule Routine, Read Routine (OP Routine) 04/12/2023 8:14 AM CDT COLONOSCOPY Routine 07/27/2021 HEPATITIS C ANTIBODY Routine 06/04/2020 10:29 AM CONCILIATOR Encounter for screening for other viral diseases Chronic fatigue from Last 3 Months or Most Recently Relevant to Health Maintenance Results * CBC with auto differential (08/23/2024 2:11 PM CONCILIATOR) WBC 4.8 3.8 - 10.8 Thousand/u L [...] [facility] Blood 08/23/2024 2:11 PM CONCILIATOR 08/23/2024 2:11 PM CONCILIATOR Sangita OSMAN LAB BLOOD ORDERABLES Vy l Result [facility] [address] [place] [address] * (ABNORMAL) Comprehensive metabolic panel (08/23/2024 2:11 PM CONCILIATOR) [facility] Glucose 188(H) 65 - 99 mg/dL [facility] [...] [facility] Blood 08/23/2024 2:11 PM CONCILIATOR 08/23/2024 2:11 PM CONCILIATOR us Sangita OSMAN LAB BLOOD ORDERABLES Vy l Result [facility] [address] [place] [address] * (ABNORMAL) CBC with auto differential (08/02/2024 7:41 AM CONCILIATOR) WBC 4.0 3.8 - 10.8 Thousand/u L [...] [facility] Blood 08/02/2024 7:41 AM CONCILIATOR 08/02/2024 7:42 AM CONCILIATOR us Alee OSMAN LAB BLOOD ORDERABLES Final Result [facility] [address] [place] [address] * TSH (08/02/2024 7:41 AM CONCILIATOR) TSH 1.57 0.40 - 4.50 mIU/L [facility] Blood 08/02/2024 7:41 AM CONCILIATOR 08/02/2024 7:42 AM CONCILIATOR Alee OSMAN LAB BLOOD ORDERABLES Final Result [facility] [address] [place] [address] * Hemoglobin A1c (08/02/2024 7:41 AM CONCILIATOR) Hgb A1C 5.4 <5.7 % of total Hgb [facility] Comment: For the purpose of screening for the presence of diabetes: <5.7% Consistent with the absence of diabetes 5.7-6.4% Consistent with increased risk for diabetes (prediabetes) > or =6.5% Consistent with diabetes This assay result is consistent with a decreased risk of diabetes. Currently, no consensus exists regarding use of hemoglobin A1c for diagnosis of diabetes in children. According to [place] [employer] Association (ADA) guidelines, hemoglobin A1c <7.0% represents optimal control in non- diabetic patients. Different metrics may apply to specific patient populations. Standards of Medical Care in Diabetes(ADA). Blood 08/02/2024 7:41 AM CONCILIATOR 08/02/2024 7:42 AM CONCILIATOR Alee OSMAN LAB BLOOD ORDERABLES Final Result Performing Organization Address [facility] Co de Phone Number [facility] [address] [place] [address] * Vitamin B12 (08/02/2024 7:41 AM CONCILIATOR) Vitamin B12 349 200 - 1,100 pg/mL [...] will have symptoms. Blood 08/02/2024 7:41 AM CONCILIATOR 08/02/2024 7:42 AM CONCILIATOR Alee OSMAN LAB BLOOD ORDERABLES Final Result Performing Organization Address City/[facility]/ZIP Co de Phone Number [facility] [address] [address] * Lipid panel (08/02/2024 7:41 AM CONCILIATOR) Cholesterol 127 <200 mg/dL [facility] [...] LDL-C. Barry FREITAS et al. ELAINE. 2013;310(19): 7177-4191 (http://education.[address]/faq/HCR321) Chol/HDL ratio 1.7 <5.0 (calc) [facility] Non-HDL, (LDL+VLDL) 52 <130 mg/dL (calc) [facility] Comment: For patients with diabetes plus 1 major ASCVD risk factor, treating to a non-HDL-C goal of <100 mg/dL (LDL-C of <70 mg/dL) is considered a therapeutic option. Blood 08/02/2024 7:41 AM CONCILIATOR 08/02/2024 7:42 AM CONCILIATOR Alee OSMAN LAB BLOOD ORDERABLES Final Result Performing Organization Address [facility]/ZIP Co de Phone Number [place] [place] [address] [address] [place] [address] * Comprehensive metabolic panel (08/02/2024 7:41 AM CONCILIATOR) Glucose 99 65 - 99 mg/dL [facility] [...] [facility] Blood 08/02/2024 7:41 AM CONCILIATOR 08/02/2024 7:42 AM CONCILIATOR us Alee OSMAN LAB BLOOD ORDERABLES Final Result [facility] [address] [place] [address] * CBC with auto differential (07/30/2024 2:36 PM CONCILIATOR) WBC 6.4 3.8 - 10.8 Thousand/u L [...] [facility] Blood 07/30/2024 2:36 PM CONCILIATOR 07/30/2024 2:36 PM CONCILIATOR us Sangita OMSAN LAB BLOOD ORDERABLES Vy l Result [facility] [address] [address] [place] [address] * Erythrocyte sedimentation rate (07/30/2024 2:36 PM CONCILIATOR) Erythrocyte sedimentation rate 11 < OR = 30 mm/h [facility] Blood 07/30/2024 2:36 PM CONCILIATOR 07/30/2024 2:36 PM CONCILIATOR [facility] Magali OSMAN LAB BLOOD ORDERABLES Vy l Result Performing Organization Address [facility]/ZIP Co de Phone Number [facility] [address] [facility] [place] [address] * CRP (acute phase) (07/30/2024 2:36 PM CONCILIATOR) [facility] C-RP <3.0 <8.0 mg/L [facility] Blood 07/30/2024 2:36 PM CONCILIATOR 07/30/2024 2:36 PM CONCILIATOR [facility] Magali Farrar DC LAB BLOOD ORDERABLES Vy l Result Performing Organization Address [facility] Co de Phone Number [facility] [address] [facility] [place] [address] * (ABNORMAL) Comprehensive metabolic panel (07/30/2024 2:36 PM CONCILIATOR) [facility] Glucose 115(H) 65 - 99 mg/dL [facility] [...] [facility] Blood 07/30/2024 2:36 PM CONCILIATOR 07/30/2024 2:36 PM CONCILIATOR us Sangita OSMAN LAB BLOOD ORDERABLES Vy l Result [facility] [address] [place] [address] * XR Knee Right 3 Views (07/24/2024 1:35 PM CONCILIATOR) Anatomical Region Laterality Modality Lower Extremities, Knee Right Computed Radiography 07/25/2024 7:16 AM CONCILIATOR Narrative 07/25/2024 7:18 AM CONCILIATOR EXAM DESCRIPTION: XR KNEE RIGHT 3 VIEWS [...] signed by Elton CABA T: Report ID: [id number] Reading Location: [id number] Procedure Note Elton Jonas MD - 07/25/2024 [...] signed by Elton CABA T: Report ID: [id number] Reading Location: [place] [address] Michael Motta MD IMG XR PROCEDURES Final Re sult * Magnesium (06/14/2024 11:06 AM CONCILIATOR) Pathologist [facility] Magnesium 2.0 1.5 - 2.5 mg/dL [facility] Blood 06/14/2024 11:0 6 AM CONCILIATOR 06/14/2024 11:06 AM CONCILIATOR Artis Grewal MD LAB BLOOD ORDERABLES Final Res ult [facility] [address] [facility] [place] [address] * eGFR (06/05/2024 4:17 AM CONCILIATOR) eGFR 84 >=60 mL/min/1. 73 m2 Comment: [...] of Race in Diagnosing Kidney Disease, JASN 202). The CKD-EPI equation should not be used for patients with unstable renal function and has not been validated in children and those over 70. Current interpretive data was last reviewed 2021. Blood 06/05/2024 4:17 AM CONCILIATOR 06/05/2024 5:01 AM CONCILIATOR Michael Motta MD LAB BLOOD ORDERABLES Final Result [facility] [address] [facility] Department [place] [address] * Differential, auto (06/05/2024 4:17 AM CONCILIATOR) Pathologist [facility] Neutrophil abs 3.2 1.5 - 6.5 K/cumm Imm gran abs 0.0 0.0 - 0.1 K/cumm [facility] Lymphocyte abs 0.9 0.8 - 3.3 K/cumm [facility] Monocyte abs 0.7 0.2 - 0.8 K/cumm [facility] Eosinophil abs 0.2 0.0 - 0.5 K/cumm [facility] Basophil abs 0.0 0.0 - 0.1 K/cumm [facility] Neutrophil pct 63.8 % [facility] Comment: Interpretive Data Percent cell count reference ranges are not reported, since discordance with absolute values may lead to misinterpretation of CBC data. Current Interpretive Data was last revised on 2017. Imm gran pct 0.2 % [facility] Comment: Interpretive Data Percent cell count reference ranges are not reported, since discordance with absolute values may lead to misinterpretation of CBC data. Current Interpretive Data was last revised on 2017. Lymphocyte pct 17.1 % [facility] Comment: Interpretive Data Percent cell count reference ranges are not reported, since discordance with absolute values may lead to misinterpretation of CBC data. Current Interpretive Data was last revised on 2017. Monocyte pct 13.9 % [facility] Comment: Interpretive Data Percent cell count reference ranges are not reported, since discordance with absolute values may lead to misinterpretation of CBC data. Current Interpretive Data was last revised on 2017. Eosinophil pct 4.6 % [facility] Comment: Interpretive Data Percent cell count reference ranges are not reported, since discordance with absolute values may lead to misinterpretation of CBC data. Current Interpretive Data was last revised on 2017. Basophil pct 0.4 % [facility] Comment: Interpretive Data Percent cell count reference ranges are not reported, since discordance with absolute values may lead to misinterpretation of CBC data. Current Interpretive Data was last revised on 2017. Blood 06/05/2024 4:17 AM CONCILIATOR 06/05/2024 5:01 AM CONCILIATOR Michael Motta MD LAB BLOOD ORDERABLES Final Result [facility] [address] [facility] Department [place] [address] * (ABNORMAL) CBC with auto differential (06/05/2024 4:17 AM CONCILIATOR) WBC 5.0 3.8 - 9.9 K/cumm Hgb 11.2(L) 11.9 - 15.5 g/dL [facility] Hct 34.3(L) 35.6 - 45.5 % [facility] Plt 201 150 - 400 K/cumm [facility] MPV 10.4 9.1 - 12.3 fL [facility] RBC 3.39(L) 3.90 - 5.20 M/cumm [facility] MCV 101.2(H) 81.3 - 96.4 fL [facility] MCH 33.0 27.1 - 33.3 pg [facility] MCHC 32.7 32.3 - 35.7 g/dL [facility] RDW CV 14.1 11.1 - 14.9 % [facility] RDW SD 51.8(H) 35.7 - 48.1 fL [facility] NRBC abs 0.00 0.00 - 0.01 K/cumm [facility] Blood 06/05/2024 4:17 AM CONCILIATOR 06/05/2024 5:01 AM CONCILIATOR Michael Motta MD LAB BLOOD ORDERABLES Final Result Performing Organization Address City/[facility]/ZIP Co de Phone Number [facility] [address] [facility] Department [place] [address] * Basic metabolic panel (06/05/2024 4:17 AM CONCILIATOR) Sodium 138 135 - 145 mmol/L Potassium, pl 4.3 3.3 - 4.9 mmol/L [facility] Comment:Hemolyzed; Potassium value may be falsely elevated by as much as 1.0 mmol/L. Suggest redraw and reanalysis. Chloride 105 97 - 110 mmol/L [facility] CO2 24 22 - 32 mmol/L [facility] Anion gap 9 2 - 15 mmol/L [facility] BUN 16 6 - 25 mg/dL [facility] Creatinine 0.77 0.60 - 1.10 mg/dL [facility] Glucose 98 70 - 199 mg/dL [facility] Comment: Interpretive Data Fasting glucose >/= [...] 2022. Calcium 9.5 8.5 - 10.3 mg/dL [facility] Blood 06/05/2024 4:17 AM CONCILIATOR 06/05/2024 5:01 AM CONCILIATOR Michael Motta MD LAB BLOOD ORDERABLES Final Result Performing Organization Address City/[facility] Co de Phone Number [facility] [address] Department [place] [address] * eGFR (06/04/2024 3:42 AM CONCILIATOR) [facility] eGFR >90 >=60 mL/min/1. 73 m2 Comment: [...] last reviewed 2021. Blood 06/04/2024 3:42 AM CONCILIATOR 06/04/2024 4:19 AM CONCILIATOR Michael Motta MD LAB BLOOD ORDERABLES Final Result [facility] [address] Department [place] [address] * Differential, auto (06/04/2024 3:42 AM CONCILIATOR) [facility] Neutrophil abs 2.4 1.5 - 6.5 K/cumm Imm gran abs 0.0 0.0 - 0.1 K/cumm [facility] Lymphocyte abs 0.9 0.8 - 3.3 K/cumm [facility] Monocyte abs 0.6 0.2 - 0.8 K/cumm [facility] Eosinophil abs 0.2 0.0 - 0.5 K/cumm [facility] Basophil abs 0.0 0.0 - 0.1 K/cumm [facility] Neutrophil pct 58.4 % [facility] Comment: Interpretive Data Percent cell count reference ranges are not reported, since discordance with absolute values may lead to misinterpretation of CBC data. Current Interpretive Data was last revised on 2017. Imm gran pct 0.2 % [facility] Comment: Interpretive Data Percent cell count reference ranges are not reported, since discordance with absolute values may lead to misinterpretation of CBC data. Current Interpretive Data was last revised on 2017. Lymphocyte pct 21.0 % [facility] Comment: Interpretive Data Percent cell count reference ranges are not reported, since discordance with absolute values may lead to misinterpretation of CBC data. Current Interpretive Data was last revised on 2017. Monocyte pct 14.3 % [facility] Comment: Interpretive Data Percent cell count reference ranges are not reported, since discordance with absolute values may lead to misinterpretation of CBC data. Current Interpretive Data was last revised on 2017. Eosinophil pct 5.1 % [facility] Comment: Interpretive Data Percent cell count reference ranges are not reported, since discordance with absolute values may lead to misinterpretation of CBC data. Current Interpretive Data was last revised on 2017. Basophil pct 1.0 % [facility] Comment: Interpretive Data Percent cell count reference ranges are not reported, since discordance with absolute values may lead to misinterpretation of CBC data. Current Interpretive Data was last revised on 2017. Blood 06/04/2024 3:42 AM CONCILIATOR 06/04/2024 4:19 AM CONCILIATOR Michael Motta MD LAB BLOOD ORDERABLES Final Result [facility] [address] [facility] Department [place] [address] * (ABNORMAL) CBC with auto differential (06/04/2024 3:42 AM CONCILIATOR) WBC 4.1 3.8 - 9.9 K/cumm Hgb 11.0(L) 11.9 - 15.5 g/dL [facility] Hct 34.3(L) 35.6 - 45.5 % [facility] Plt 180 150 - 400 K/cumm [facility] MPV 10.2 9.1 - 12.3 fL [facility] RBC 3.30(L) 3.90 - 5.20 M/cumm [facility] MCV 103.9(H) 81.3 - 96.4 fL [facility] MCH 33.3 27.1 - 33.3 pg [facility] MCHC 32.1(L) 32.3 - 35.7 g/dL [facility] RDW CV 14.3 11.1 - 14.9 % [facility] RDW SD 54.4(H) 35.7 - 48.1 fL [facility] NRBC abs 0.00 0.00 - 0.01 K/cumm [facility] Blood 06/04/2024 3:42 AM CONCILIATOR 06/04/2024 4:19 AM CONCILIATOR Michael Motta MD LAB BLOOD ORDERABLES Final Result Performing Organization Address City/State/[facility] Co de Phone Number [facility] [address] [facility] Department [place] [address] * Basic metabolic panel (06/04/2024 3:42 AM CONCILIATOR) Sodium 140 135 - 145 mmol/L Potassium, pl 4.1 3.3 - 4.9 mmol/L [facility] Chloride 108 97 - 110 mmol/L [facility] CO2 24 22 - 32 mmol/L [facility] Anion gap 8 2 - 15 mmol/L [facility] BUN 15 6 - 25 mg/dL [facility] Creatinine 0.68 0.60 - 1.10 mg/dL [facility] Glucose 92 70 - 199 mg/dL [facility] Comment: Interpretive Data Fasting glucose >/= [...] Calcium 8.6 8.5 - 10.3 mg/dL [facility] Blood 06/04/2024 3:42 AM CONCILIATOR 06/04/2024 4:19 AM CONCILIATOR Michael Motta MD LAB BLOOD ORDERABLES Final Result [id number] [place] [address] * eGFR (06/03/2024 6:18 AM CONCILIATOR) eGFR >90 >=60 mL/min/1. 73 m2 Comment: [...] last reviewed 2021. Blood 06/03/2024 6:18 AM CONCILIATOR 06/03/2024 6:49 AM CONCILIATOR Michael Motta MD LAB BLOOD ORDERABLES Final Result Performing Organization Address City/[facility]/ZIP Co de Phone Number [id number] [place] [address] * (ABNORMAL) Differential, auto (06/03/2024 6:18 AM CONCILIATOR) Neutrophil abs 3.4 1.5 - 6.5 K/cumm Imm gran abs 0.0 0.0 - 0.1 K/cumm [facility] Lymphocyte abs 0.7(L) 0.8 - 3.3 K/cumm [facility] Monocyte abs 0.6 0.2 - 0.8 K/cumm [facility] Eosinophil abs 0.2 0.0 - 0.5 K/cumm [facility] Basophil abs 0.0 0.0 - 0.1 K/cumm [facility] Neutrophil pct 68.6 % [facility] Comment: Interpretive Data Percent cell count reference ranges are not reported, since discordance with absolute values may lead to misinterpretation of CBC data. Current Interpretive Data was last revised on 2017. Imm gran pct 0.2 % [facility] Comment: Interpretive Data Percent cell count reference ranges are not reported, since discordance with absolute values may lead to misinterpretation of CBC data. Current Interpretive Data was last revised on 2017. Lymphocyte pct 14.4 % [facility] Comment: Interpretive Data Percent cell count reference ranges are not reported, since discordance with absolute values may lead to misinterpretation of CBC data. Current Interpretive Data was last revised on 2017. Monocyte pct 11.9 % [facility] Comment: Interpretive Data Percent cell count reference ranges are not reported, since discordance with absolute values may lead to misinterpretation of CBC data. Current Interpretive Data was last revised on 2017. Eosinophil pct 4.3 % [facility] Comment: Interpretive Data Percent cell count reference ranges are not reported, since discordance with absolute values may lead to misinterpretation of CBC data. Current Interpretive Data was last revised on 2017. Basophil pct 0.6 % [facility] Comment: Interpretive Data Percent cell count reference ranges are not reported, since discordance with absolute values may lead to misinterpretation of CBC data. Current Interpretive Data was last revised on 2017. Blood 06/03/2024 6:18 AM CONCILIATOR 06/03/2024 6:48 AM CONCILIATOR Michael Motta MD LAB BLOOD ORDERABLES Final Result [facility] [address] Department [place] [address] * (ABNORMAL) CBC with auto differential (06/03/2024 6:18 AM CONCILIATOR) [facility] WBC 4.9 3.8 - 9.9 K/cumm Hgb 11.2(L) 11.9 - 15.5 g/dL [facility] Hct 34.7(L) 35.6 - 45.5 % [facility] Plt 171 150 - 400 K/cumm [facility] MPV 10.3 9.1 - 12.3 fL [facility] RBC 3.38(L) 3.90 - 5.20 M/cumm [facility] MCV 102.7(H) 81.3 - 96.4 fL [facility] MCH 33.1 27.1 - 33.3 pg [facility] MCHC 32.3 32.3 - 35.7 g/dL [facility] RDW CV 14.6 11.1 - 14.9 % [facility] RDW SD 54.4(H) 35.7 - 48.1 fL [facility] NRBC abs 0.00 0.00 - 0.01 K/cumm [facility] Blood 06/03/2024 6:18 AM CONCILIATOR 06/03/2024 6:48 AM CONCILIATOR Michael Motta MD LAB BLOOD ORDERABLES Final Result [facility] [address] [facility] [place] [address] * Basic metabolic panel (06/03/2024 6:18 AM CONCILIATOR) [facility] Sodium 139 135 - 145 mmol/L Potassium, pl 4.1 3.3 - 4.9 mmol/L [facility] Chloride 108 97 - 110 mmol/L [facility] CO2 23 22 - 32 mmol/L [facility] Anion gap 8 2 - 15 mmol/L [facility] BUN 15 6 - 25 mg/dL [facility] Creatinine 0.64 0.60 - 1.10 mg/dL [facility] Glucose 103 70 - 199 mg/dL [facility] Comment: Interpretive Data Fasting glucose >/= [...] 2022. Calcium 9.0 8.5 - 10.3 mg/dL [facility] Blood 06/03/2024 6:18 AM CONCILIATOR 06/03/2024 6:49 AM CONCILIATOR Michael Motta MD LAB BLOOD ORDERABLES Final Result [facility] [address] [facility] Department [place] [address] * eGFR (06/02/2024 6:16 AM CONCILIATOR) eGFR >90 >=60 mL/min/1. 73 m2 Comment: [...] last reviewed 2021. Blood 06/02/2024 6:16 AM CONCILIATOR 06/02/2024 6:50 AM CONCILIATOR us Michael Motta MD LAB BLOOD ORDERABLES Final Result [facility] [address] [facility] Department of Laboratories [place], [place] [id number] * Differential, auto (06/02/2024 6:16 AM CONCILIATOR) Neutrophil abs 3.9 1.5 - 6.5 K/cumm Imm gran abs 0.0 0.0 - 0.1 K/cumm [facility] Lymphocyte abs 0.8 0.8 - 3.3 K/cumm [facility] Monocyte abs 0.8 0.2 - 0.8 K/cumm [facility] Eosinophil abs 0.1 0.0 - 0.5 K/cumm [facility] Basophil abs 0.0 0.0 - 0.1 K/cumm [facility] Neutrophil pct 69.0 % [facility] Comment: Interpretive Data Percent cell count reference ranges are not reported, since discordance with absolute values may lead to misinterpretation of CBC data. Current Interpretive Data was last revised on 2017. Imm gran pct 0.4 % [facility] Comment: Interpretive Data Percent cell count reference ranges are not reported, since discordance with absolute values may lead to misinterpretation of CBC data. Current Interpretive Data was last revised on 2017. Lymphocyte pct 14.3 % [facility] Comment: Interpretive Data Percent cell count reference ranges are not reported, since discordance with absolute values may lead to misinterpretation of CBC data. Current Interpretive Data was last revised on 2017. Monocyte pct 14.0 % [facility] Comment: Interpretive Data Percent cell count reference ranges are not reported, since discordance with absolute values may lead to misinterpretation of CBC data. Current Interpretive Data was last revised on 2017. Eosinophil pct 1.9 % [facility] Comment: Interpretive Data Percent cell count reference ranges are not reported, since discordance with absolute values may lead to misinterpretation of CBC data. Current Interpretive Data was last revised on 2017. Basophil pct 0.4 % [facility] Comment: Interpretive Data Percent cell count reference ranges are not reported, since discordance with absolute values may lead to misinterpretation of CBC data. Current Interpretive Data was last revised on 2017. Blood 06/02/2024 6:16 AM CONCILIATOR 06/02/2024 6:51 AM CONCILIATOR Michael Motta MD LAB BLOOD ORDERABLES Final Result Performing Organization Address [facility] Co de Phone Number [facility] [address] [address] * (ABNORMAL) CBC with auto differential (06/02/2024 6:16 AM CONCILIATOR) Pathologist [facility] WBC 5.7 3.8 - 9.9 K/cumm Hgb 10.9(L) 11.9 - 15.5 g/dL [facility] Hct 34.9(L) 35.6 - 45.5 % [facility] Plt 134(L) 150 - 400 K/cumm [facility] MPV 10.7 9.1 - 12.3 fL [facility] RBC 3.30(L) 3.90 - 5.20 M/cumm [facility] MCV 105.8(H) 81.3 - 96.4 fL [facility] MCH 33.0 27.1 - 33.3 pg [facility] MCHC 31.2(L) 32.3 - 35.7 g/dL [facility] RDW CV 14.7 11.1 - 14.9 % [facility] RDW SD 57.2(H) 35.7 - 48.1 fL [facility] NRBC abs 0.00 0.00 - 0.01 K/cumm [facility] Blood 06/02/2024 6:16 AM CONCILIATOR 06/02/2024 6:51 AM CONCILIATOR Michael Motta MD LAB BLOOD ORDERABLES Final Result Performing Organization Address [facility] Co de Phone Number [id number] [address] * (ABNORMAL) Basic metabolic panel (06/02/2024 6:16 AM CONCILIATOR) Pathologist [facility] Sodium 138 135 - 145 mmol/L Potassium, pl 4.5 3.3 - 4.9 mmol/L [facility] Comment:Hemolyzed; Potassium value may be falsely elevated by as much as 1.0 mmol/L. Suggest redraw and reanalysis. Chloride 109 97 - 110 mmol/L [facility] CO2 20(L) 22 - 32 mmol/L [facility] Anion gap 9 2 - 15 mmol/L [facility] BUN 16 6 - 25 mg/dL [facility] Creatinine 0.67 0.60 - 1.10 mg/dL [facility] Glucose 87 70 - 199 mg/dL [facility] Comment: Interpretive Data Fasting glucose >/= [...] 2022. Calcium 7.9(L) 8.5 - 10.3 mg/dL [facility] Blood 06/02/2024 6:16 AM CONCILIATOR 06/02/2024 6:50 AM CONCILIATOR us Michael Motta MD LAB BLOOD ORDERABLES Final Result [facility] [address] [facility] Department of Laboratories [place], [place] [id number] * (ABNORMAL) Differential, auto (06/01/2024 10:53 AM CONCILIATOR) Pathologist [facility] Neutrophil abs 4.3 1.5 - 6.5 K/cumm Imm gran abs 0.0 0.0 - 0.1 K/cumm [facility] Lymphocyte abs 1.1 0.8 - 3.3 K/cumm [facility] Monocyte abs 1.0(H) 0.2 - 0.8 K/cumm [facility] Eosinophil abs 0.1 0.0 - 0.5 K/cumm [facility] Basophil abs 0.0 0.0 - 0.1 K/cumm [facility] Neutrophil pct 65.4 % [facility] Comment: Interpretive Data Percent cell count reference ranges are not reported, since discordance with absolute values may lead to misinterpretation of CBC data. Current Interpretive Data was last revised on 2017. Imm gran pct 0.3 % [facility] Comment: Interpretive Data Percent cell count reference ranges are not reported, since discordance with absolute values may lead to misinterpretation of CBC data. Current Interpretive Data was last revised on 2017. Lymphocyte pct 17.4 % [facility] Comment: Interpretive Data Percent cell count reference ranges are not reported, since discordance with absolute values may lead to misinterpretation of CBC data. Current Interpretive Data was last revised on 2017. Monocyte pct 15.2 % [facility] Comment: Interpretive Data Percent cell count reference ranges are not reported, since discordance with absolute values may lead to misinterpretation of CBC data. Current Interpretive Data was last revised on 2017. Eosinophil pct 1.2 % [facility] Comment: Interpretive Data Percent cell count reference ranges are not reported, since discordance with absolute values may lead to misinterpretation of CBC data. Current Interpretive Data was last revised on 2017. Basophil pct 0.5 % [facility] Comment: Interpretive Data Percent cell count reference ranges are not reported, since discordance with absolute values may lead to misinterpretation of CBC data. Current Interpretive Data was last revised on 2017. Blood 06/01/2024 10:5 3 AM CONCILIATOR 06/01/2024 10:58 AM CONCILIATOR Michael Motta MD LAB BLOOD ORDERABLES Final Result [facility] [address] [facility] Department [place] [address] * (ABNORMAL) CBC with auto differential (06/01/2024 10:53 AM CONCILIATOR) WBC 6.6 3.8 - 9.9 K/cumm Hgb 10.6(L) 11.9 - 15.5 g/dL [facility] Hct 32.6(L) 35.6 - 45.5 % [facility] Plt 156 150 - 400 K/cumm [facility] MPV 10.1 9.1 - 12.3 fL [facility] RBC 3.21(L) 3.90 - 5.20 M/cumm [facility] MCV 101.6(H) 81.3 - 96.4 fL [facility] MCH 33.0 27.1 - 33.3 pg [facility] MCHC 32.5 32.3 - 35.7 g/dL [facility] RDW CV 14.5 11.1 - 14.9 % [facility] RDW SD 53.6(H) 35.7 - 48.1 fL [facility] NRBC abs 0.00 0.00 - 0.01 K/cumm [facility] Blood 06/01/2024 10:5 3 AM CONCILIATOR 06/01/2024 10:58 AM CONCILIATOR Michael Motta MD LAB BLOOD ORDERABLES Final Result [facility] [address] [facility] Department [place] [address] * eGFR (06/01/2024 8:41 AM CONCILIATOR) eGFR >90 >=60 mL/min/1. 73 m2 Comment: [...] last reviewed 2021. Blood 06/01/2024 8:41 AM CONCILIATOR 06/01/2024 8:45 AM CONCILIATOR Michael Motta MD LAB BLOOD ORDERABLES Final Result [address] [place] [address] * (ABNORMAL) Basic metabolic panel (06/01/2024 8:41 AM CONCILIATOR) [facility] Sodium 139 135 - 145 mmol/L Potassium, pl 4.1 3.3 - 4.9 mmol/L [facility] Chloride 111(H) 97 - 110 mmol/L [facility] CO2 21(L) 22 - 32 mmol/L [facility] Anion gap 7 2 - 15 mmol/L [facility] BUN 20 6 - 25 mg/dL [facility] Creatinine 0.64 0.60 - 1.10 mg/dL [facility] Glucose 107 70 - 199 mg/dL [facility] Comment: Interpretive Data Fasting glucose >/= [...] 2022. Calcium 8.6 8.5 - 10.3 mg/dL [facility] Blood 06/01/2024 8:41 AM CONCILIATOR 06/01/2024 8:45 AM CONCILIATOR Michael Motta MD LAB BLOOD ORDERABLES Final Result [address] [place] [address] * eGFR (05/31/2024 3:10 AM CONCILIATOR) Pathologist [facility] eGFR >90 >=60 mL/min/1. 73 m2 Comment: [...] last reviewed 2021. Blood 05/31/2024 3:10 AM CONCILIATOR 05/31/2024 3:28 AM CONCILIATOR Michael Motta MD LAB BLOOD ORDERABLES Final Result [facility] [address] [facility] Department [place] [address] * (ABNORMAL) Differential, auto (05/31/2024 3:10 AM CONCILIATOR) Pathologist [facility] Neutrophil abs 8.1(H) 1.5 - 6.5 K/cumm Imm gran abs 0.0 0.0 - 0.1 K/cumm [facility] Lymphocyte abs 0.4(L) 0.8 - 3.3 K/cumm [facility] Monocyte abs 0.4 0.2 - 0.8 K/cumm [facility] Eosinophil abs 0.0 0.0 - 0.5 K/cumm [facility] Basophil abs 0.0 0.0 - 0.1 K/cumm [facility] Neutrophil pct 91.1 % [facility] Comment: Interpretive Data Percent cell count reference ranges are not reported, since discordance with absolute values may lead to misinterpretation of CBC data. Current Interpretive Data was last revised on 2017. Imm gran pct 0.3 % [facility] Comment: Interpretive Data Percent cell count reference ranges are not reported, since discordance with absolute values may lead to misinterpretation of CBC data. Current Interpretive Data was last revised on 2017. Lymphocyte pct 4.0 % [facility] Comment: Interpretive Data Percent cell count reference ranges are not reported, since discordance with absolute values may lead to misinterpretation of CBC data. Current Interpretive Data was last revised on 2017. Monocyte pct 4.4 % [facility] Comment: Interpretive Data Percent cell count reference ranges are not reported, since discordance with absolute values may lead to misinterpretation of CBC data. Current Interpretive Data was last revised on 2017. Eosinophil pct 0.1 % [facility] Comment: Interpretive Data Percent cell count reference ranges are not reported, since discordance with absolute values may lead to misinterpretation of CBC data. Current Interpretive Data was last revised on 2017. Basophil pct 0.1 % [facility] Comment: Interpretive Data Percent cell count reference ranges are not reported, since discordance with absolute values may lead to misinterpretation of CBC data. Current Interpretive Data was last revised on 2017. Blood 05/31/2024 3:10 AM CONCILIATOR 05/31/2024 3:28 AM CONCILIATOR Michael Motta MD LAB BLOOD ORDERABLES Final Result [facility] [address] [facility] Department [place] [address] * (ABNORMAL) CBC with auto differential (05/31/2024 3:10 AM CONCILIATOR) WBC 8.9 3.8 - 9.9 K/cumm Hgb 11.9 11.9 - 15.5 g/dL [facility] Hct 36.5 35.6 - 45.5 % [facility] Plt 154 150 - 400 K/cumm [facility] MPV 9.8 9.1 - 12.3 fL [facility] RBC 3.53(L) 3.90 - 5.20 M/cumm [facility] MCV 103.4(H) 81.3 - 96.4 fL [facility] MCH 33.7(H) 27.1 - 33.3 pg [facility] MCHC 32.6 32.3 - 35.7 g/dL [facility] RDW CV 14.5 11.1 - 14.9 % [facility] RDW SD 54.6(H) 35.7 - 48.1 fL [facility] NRBC abs 0.00 0.00 - 0.01 K/cumm [facility] Blood 05/31/2024 3:10 AM CONCILIATOR 05/31/2024 3:28 AM CONCILIATOR Michael Motta MD LAB BLOOD ORDERABLES Final Result [facility] [address] [facility] Department [place] [address] * (ABNORMAL) Basic metabolic panel (05/31/2024 3:10 AM CONCILIATOR) Sodium 138 135 - 145 mmol/L Potassium, pl 4.5 3.3 - 4.9 mmol/L [facility] Chloride 111(H) 97 - 110 mmol/L [facility] CO2 21(L) 22 - 32 mmol/L [facility] Anion gap 6 2 - 15 mmol/L [facility] BUN 13 6 - 25 mg/dL [facility] Creatinine 0.60 0.60 - 1.10 mg/dL [facility] Glucose 139 70 - 199 mg/dL [facility] Comment: Interpretive Data Fasting glucose >/= [...] 2022. Calcium 8.8 8.5 - 10.3 mg/dL [facility] Blood 05/31/2024 3:10 AM CONCILIATOR 05/31/2024 3:28 AM CONCILIATOR us Michael Motta MD LAB BLOOD ORDERABLES Final Result [facility] [address] [facility] Department [place] [address] * IN AN PROCEDURE PLACEHOLDER (05/30/2024 2:25 PM CONCILIATOR) Karen Churchill MD - 05/30/2024 2:25 PM CONCILIATOR Karen Olmstead MD 05/30/2024 2:25 PM Peripheral [...] IN AN PROCEDURE PLACEHOLDER (05/30/2024 2:24 PM CONCILIATOR) Karen Churchill MD - 05/30/2024 2:24 PM CONCILIATOR Karen Olmstead MD 05/30/2024 2:24 PM Peripheral [...] no complications Karen Olmstead MD ANESTHESIA ORDERABLES Final Result * IN AN PROCEDURE PLACEHOLDER (05/30/2024 2:23 PM CONCILIATOR) Narrative Karen Olmstead MD - 05/30/2024 2:23 PM CONCILIATOR Karen Olmstead MD 05/30/2024 2:24 PM Peripheral [...] IN AN PROCEDURE PLACEHOLDER (05/30/2024 2:22 PM CONCILIATOR) Narrative Karen Olmstead MD - 05/30/2024 2:22 PM CONCILIATOR Karen Olmstead MD 05/30/2024 2:24 PM Peripheral [...] 1 or 2 View (05/30/2024 10:52 AM CONCILIATOR) Anatomical Region Laterality Modality Lower Extremities, Knee Right Computed Radiography 05/30/2024 11:3 8 AM CONCILIATOR Narrative 05/30/2024 11:40 AM CONCILIATOR EXAM DESCRIPTION: XR KNEE RIGHT 1 OR [...] 11:40 AM - Electronically signed by Anjum Chino M.D. LB T: Report ID: [id number] Reading Location: [id number] Procedure Note Anjum Chino MD - 05/30/2024 [...] 11:40 AM - Electronically signed by Anjum Chnio M.D. LB T: Report ID: [id number] Reading Location: [id number] Michael Motta MD IMG XR PROCEDURES Final Re sult * IN AN PROCEDURE PLACEHOLDER (05/30/2024 8:18 AM CONCILIATOR) Narrative Urban Davison, BOOM - 05/30/2024 8:18 AM CONCILIATOR Urban Davison, BOOM 05/30/2024 8:19 AM Peripheral IV Catheter Patient [...] no complications Karen Olmstead MD ANESTHESIA ORDERABLES Final Result * IN AN ELECTIVE SUPRAGLOTTIC AIRWAY, IN AN PROCEDURE PLACEHOLDER (05/30/2024 8:17 AM CONCILIATOR) Narrative Urban Davison CRNA - 05/30/2024 8:17 AM CONCILIATOR Urban Davison CRNA 05/30/2024 8:18 AM Airway Patient location: OR Urgency: elective Indications for airway management: anesthesia Difficult airway: no Staff: Placed by: BUDGET ENGINEER: Urban Davison, BOOM Emergent airway documentation: Risks and benefits discussed: [...] POCUS INJ SCIATIC NERVE (05/30/2024 7:13 AM CONCILIATOR) Narrative [id number] - 05/30/2024 7:13 AM CONCILIATOR This procedure was performed and interpreted by the provider. Please refer to the provider's procedure/OR operative note for results. Michael Motta MD POCUS ORDERABLES Final Res ult Performing Organization Address [facility] de Phone Number [facility] * POCUS INJ FEMORAL NERVE (05/30/2024 7:13 AM CONCILIATOR) Narrative [facility] - 05/30/2024 7:13 AM CONCILIATOR This procedure was performed and interpreted by the provider. Please refer to the provider's procedure/OR operative note for results. Michael Motta MD POCUS ORDERABLES Final Res ult [facility] * Screening Mammogram Bilateral W Dyllan [...] Anatomical Region Laterality Modality Other Historical Provider MD ENDOSCOPY PROCEDURES Vy l Result * Hepatitis C antibody (06/04/2020 10:29 AM CONCILIATOR) Hep C Ab NON-REACTI VE NON-REACT ALEXYS [facility] SIGNAL TO CUT-OFF 0.02 <1.00 [facility] Comment: HCV antibody was non-reactive. There is no laboratory evidence of HCV infection. In most cases, no further action is required. However, if recent HCV exposure is suspected, a test for HCV RNA (test code 65461) is suggested. For additional information please refer to http://education.Panor[employer] Education/faq/DST80r5 (This link is being provided for informational/ educational purposes only.) Blood specimen (specimen) 06/04/2020 10:29 AM CONCILIATOR 06/04/2020 10:30 AM CONCILIATOR [facility] MICROBIOLOGY - GENERA L ORDERABLES Final Result [place] [address] [address] [place] [phone] from Last 3 Months or Most Recently Relevant to Health Maintenance Insurance [facility] Advance Directives For more information, please contact: [phone] Documents on File Type Date Recorded Patient Integrity Consultant Expl anation ADVANCE DIRECTIVE 05/17/2024 2:13 PM [facility] Aide-Medical * Full Code (Latest Code Status on File) Date Activated Date Inactivated Comments 05/30/2024 12:38 PM 06/05/2024 6:31 PM * Full Code Date Activated Date Inactivated Comments 05/04/2023 2:33 PM 05/07/2023 3:07 AM * Full Code Date Activated Date Inactivated Comments 03/22/2021 4:39 PM 03/25/2021 6:17 PM 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 Relationship Specialty Start Date End Date Alee Elizondo PA [address] [facility] [address] [place] [address] PCP - General Internal Medicine 07/05/23 Sharan Linton MD Referring Physician Gastroenterology 10/31/18 Martha Starks MD Consulting Physician Cardiology 12/24/20 Shama Hines MD [address] [facility] [address] [place] [address] Consulting Physician Pain Management 01/19/21 Artis Grewal MD [address] [place] [address] Consulting Physician Rheumatology 01/30/21 Amy Mayes NP [address] [facility] [address] [facility] [address] [place] [address] Nurse Practitioner Cardiovascular Disease 04/20/24 Shailesh Dunn MD [address] [facility] [address] [place] [address] Consulting Physician Pulmonary Disease 04/20/24 Sangita Farrar PA [facility] [place] [address] Physician Arts And Crafts Instructor Rheumatology 05/15/24
--- OUTSIDE RECORDS SUMMARY | 2024-08-29 18:50 | XMS_ITS | Encounter Summary ---
Author Organization [facility] Facility Care Team Providers Care Senior Research Executive Name Role Phone Alee Elizondo Primary Care Provider + [phone] Sharan Linton MD Unavailable [phone] Taisha Gomez MD Unavailable [phone] Parag Soto MD Unavailable [phone] RaziaMartha singh MD Unavailable [phone] Puneet Uribe MD Unavailable [phone] Shama Hines MD Unavailable Artis Grewal MD Unavailable [phone] Harrison Pena RN Unavailable +[phone] Nafisa Gregg RN Unavailable +[phone] Tho Kelsey MD Primary Care Provider [phone] Alee Elizondo Primary Care Provider + [phone] Amy Mayes NP Unavailable [phone] Shailesh Dunn MD Unavailable [phone] Sangita Farrar Unavailable +[phone] Encounter Details Date Type Department Care Team (Latest Contact Info) Description 10/15/2016 Orders Only [facility] CLINCONV Provider, MD Tania [address] [place] [address] Social History Tobacco Use Types Packs/Day Years Used Date Smoking Tobacco: Never Alcohol Use Standard Drinks/Week Comments No 0 (1 standard drink = 0.6 oz pur e alcohol) Comments Unknown Sex and Gender Information Value Date Recorded Sex Assigned at Not on file 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 COVID: Suspected 08/14/2021 08/14/2021 08/15/2021 3:05 AM HIGH SCHOOL MATHEMATICS TEACHER COVID: Suspected 08/14/2021 08/14/2021 08/15/2021 6:25 AM HIGH SCHOOL MATHEMATICS TEACHER COVID: Suspected 06/02/2023 06/02/2023 06/02/2023 7:25 PM HIGH SCHOOL MATHEMATICS TEACHER COVID: Suspected 07/26/2023 07/26/2023 07/26/2023 3:10 PM HIGH 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 TEACHER documented as of this encounter Care Teams Senior Research Executive Relationship Specialty Start Date End Date Alee Elizondo PA [address] [facility] [address] [place] [address] PCP - General Internal Medicine 02/01/17 06/29/23 Tho Kelsey MD [address] [facility] [address] [place] [address] PCP - General Family Medicine 06/30/23 07/04/23 Alee Elizondo PA [address] [place] [address] PCP - General Internal Medicine 07/05/23 Sharan Linton MD [address] [place] [address] Referring Physician Gastroenterology 10/31/18 Taisha Gomez MD [address] [place], [place] [address] Referring Physician Pulmonary Disease 10/31/18 12/23/20 Parag Soto MD [address] [facility] [address] [place] [address] Referring Physician Rheumatology 10/31/18 12/23/20 Martha Starks MD [address] [facility] [address] [place] [address] Consulting Physician Cardiology 12/24/20 Puneet Uribe MD [address] [facility] [address] [place] [address] Consulting Physician Rheumatology 12/24/20 01/29/21 Shama Hines MD [address] [facility] [address] [place] [address] Consulting Physician Pain Management 01/19/21 Artis Grewal MD [address] [place] [address] Consulting Physician Rheumatology 01/30/21 Harrison Pena, JULIUS [address] [place] [address] Wastewater Plant Operator 05/30/23 09/04/23 Nafisa Gregg, JULIUS [address] [place] [address] [address] [place] [address] Wastewater Plant Operator 06/06/23 06/12/23 Amy Mayes NP [address] [facility] [address] [facility] [address] [place] [address] Nurse Practitioner Cardiovascular Disease 04/20/24 Shailesh Dunn MD [address] [facility] [address] [place] [address] Consulting Physician Pulmonary Disease 04/20/24 Sangita Farrar PA [address] [place] [address] Physician Recruiter Account Manager Rheumatology 05/15/24 documented as of this encounter
--- OUTSIDE RECORDS SUMMARY | 2024-08-29 18:50 | XMS_ITS | Encounter Summary ---
Author Organization [facility] Facility Care Team Providers Care Fur Operator Name Role Phone Alee Elizondo Primary Care Provider + [phone] Sharan Linton MD Unavailable [phone] Taisha Gomez MD Unavailable [phone] Parag Soto MD Unavailable [phone] RaziaMartha singh MD Unavailable [phone] Puneet Uribe MD Unavailable +[phone] Shama Hines MD Unavailable Artis Grewal MD Unavailable [phone] Harrison Pena RN Unavailable [phone] Nafisa Gregg RN Unavailable [phone] Tho Kelsey MD Primary Care Provider [phone] Alee Elizondo Primary Care Provider + [phone] Amy Mayes NP Unavailable [phone] Shailesh Dunn MD Unavailable [phone] Sangita Farrar Unavailable [phone] Encounter Details Date Type Department Care Team (Latest Contact Info) Description 01/08/2017 Orders Only [facility] CLINCONV Provider, MD Tania [address] [place] [address] Social History Tobacco Use Types Packs/Day Years Used Date Smoking Tobacco: Never Alcohol Use Standard Drinks/Week Comments No 0 (1 standard drink = 0.6 oz pur e alcohol) Comments Unknown Sex and Gender Information Value Date Recorded Sex Assigned at Not on file Legal Sex Female 8:04 PM GUEST RELATIONS COORDINATOR Gender Identity Female 02/15/2020 6:08 PM CDT Sexual Orientation Not on file documented as of this encounter Plan of Treatment Not on file documented as of this encounter Procedures Procedure Name Priority Date/Time Associated Diagnosis Comments SCAN - LABS 01/10/2017 12:00 AM CDT documented in this encounter Results * SCAN - LABS (01/10/2017 12:00 AM CDT) Narrative 01/10/2017 12:00 AM CDT Ordered by an unspecified provider. Historical Provider Final Res ult documented in this encounter Visit Diagnoses Not on filedocumented in this encounter Additional Health Concerns Infection Onset Date Last Indicated Resolved Time COVID: Suspected 08/13/2021 08/14/2021 08/14/2021 3:06 AM GUEST RELATIONS COORDINATOR COVID: Suspected 08/14/2021 08/14/2021 08/15/2021 3:05 AM GUEST RELATIONS COORDINATOR COVID: Suspected 08/14/2021 08/14/2021 08/15/2021 6:25 AM GUEST RELATIONS COORDINATOR COVID: Suspected 06/02/2023 06/02/2023 06/02/2023 7:25 PM GUEST RELATIONS COORDINATOR COVID: Suspected 07/26/2023 07/26/2023 07/26/2023 3:10 PM GUEST RELATIONS COORDINATOR documented as of this encounter Care Teams Fur Operator Relationship Specialty Start Date End Date Alee Elizondo PA [address] [facility] [address] [place] [address] PCP - General Internal Medicine 02/01/17 06/29/23 Tho Kelsey MD [address] [facility] [address] [place] [address] PCP - General Family Medicine 06/30/23 07/04/23 Alee Elizondo PA [address] [place] [address] PCP - General Internal Medicine 07/05/23 Sharan Linton MD [address] [place] [address] Referring Physician Gastroenterology 10/31/18 Taisha Gomez MD [address] [place], [place] [address] Referring Physician Pulmonary Disease 10/31/18 12/23/20 Parag Soto MD [address] [facility] [address] [place] [address] Referring Physician Rheumatology 10/31/18 12/23/20 Martha Starks MD [address] [facility] [address] [place] [address] Consulting Physician Cardiology 12/24/20 Puneet Uribe MD [address] [facility] [address] [place] [address] Consulting Physician Rheumatology 12/24/20 01/29/21 Shama Hines MD [address] [facility] [address] [place] [address] Consulting Physician Pain Management 01/19/21 Artis Grewal MD [address] [place] [address] Consulting Physician Rheumatology 01/30/21 Harrison Pena, JULIUS [address] [place] [address] Cyber Defense Forensics Analyst 05/30/23 09/04/23 Nafisa Gregg, JULIUS [address] [place] [address] [address] [place] [address] Cyber Defense Forensics Analyst 06/06/23 06/12/23 Amy Mayes NP [address] [facility] [address] [facility] 102 [place] [address] Nurse Practitioner Cardiovascular Disease 04/20/24 Shailesh Dunn MD [address] [facility] [address] [place] [address] Consulting Physician Pulmonary Disease 04/20/24 Sangita Farrar PA [address] [place] [address] Physician Office Director Rheumatology 05/15/24 documented as of this encounter
--- OUTSIDE RECORDS SUMMARY | 2024-08-29 18:50 | XMS_ITS | Encounter Summary ---
Author Organization [facility] Healthcare Address [address] [place] [address] Care Team Providers Care Farm Loan Inspector Name Role Phone Sharan Linton MD Unavailable [phone] Martha Starks MD Unavailable [phone] Shama Hines MD Unavailable Artis Grewal MD Unavailable [phone] Alee Elizondo Primary Care Provider [phone] Amy Mayes NP Unavailable [phone] Shailesh Dunn MD Unavailable [phone] Sangita Farrar Unavailable [phone] Encounter Details Date Type Department Care Team (Late st Contact Info) Description 03/02/2024 Telephone [facility] Medical Group Family Medicine [address] [facility] [address] [place] [address] Alee Elizondo PA [address] [facility] [address] [place] [address] Social History Tobacco Use Types Packs/Day Years Used Date Smoking Tobacco: Never Smokeless Tobacco: Never Comments:Never used Alcohol Use Standard Drinks/Week Comments No 0 (1 standard drink = 0.6 oz pur e alcohol) [facility] Utilities Answer Date Recorded In the past 12 months has [employer], gas, oil, or water company threatened to [...] often do you attend chur ch or hindu services? More than 4 times per year 05/27/2023 Do you belong to any clubs o r organizations such as latter-day groups, unions, fraternal or athletic groups, or [...] points, staff should administer the PHQ-9) 0 01/10/2024 Hunger Vital Sign Answer Date Recorded Within [...] place to sleep or slept in a halfway (including now)? No 05/27/2023 Personal Safety Answer Date Recorded Have you ever been in or are you currently in a harmful physical or emotional relationship or is someone making you feel afraid or unsafe? Denies 06/02/2023 Comments No Sex and Gender Information Value Date Recorded Sex Assigned at Not on file Legal Sex Female 8:04 PM BUDGET COORDINATOR Gender Identity Female 02/15/2020 6:08 PM CDT Sexual Orientation Not on file documented as of this encounter Plan of Treatment Not on file documented as of this encounter Visit Diagnoses Not on filedocumented in this encounter Care Teams Farm Loan Inspector Relationship Specialty Start Date End Date Alee Elizondo PA [address] [facility] 500 [place] [address] PCP - General Internal Medicine 07/05/23 Sharan Linton MD Referring Physician Gastroenterology 10/31/18 Martha Starks MD Consulting Physician Cardiology 12/24/20 Shama Hines MD [address] [facility] [address] [place] [address] Consulting Physician Pain Management 01/19/21 Artis Grewal MD [address] [place] [address] Consulting Physician Rheumatology 01/30/21 Amy Mayes NP [address] [facility] 102 [place] [address] Nurse Practitioner Cardiovascular Disease 04/20/24 Shailesh Dunn MD [address] [facility] 200 [place] [address] Consulting Physician Pulmonary Disease 04/20/24 Sangita Farrar PA [address] [place] [address] Physician Picture Frames Inspector Rheumatology 05/15/24 documented as of this encounter
--- OUTSIDE RECORDS SUMMARY | 2024-08-29 18:50 | XMS_ITS | Encounter Summary ---
Author Organization [facility] Healthcare Address [address] [place] [address] Care Team Providers Care Outbound Supervisor Name Role Phone Sharan Linton MD Unavailable [phone] Martha Starks MD Unavailable [phone] Shama Hines MD Unavailable Artis Grewal MD Unavailable [phone] Alee Elizondo Primary Care Provider [phone] Amy Mayes NP Unavailable [phone] Shailesh Dunn MD Unavailable [phone] Sangita Farrar Unavailable [phone] Encounter Details Date Type Department Care Team (Late st Contact Info) Description 12/08/2023 Orders Only [facility] Health Information Management [address] [place] [address] Scanning, Provider Social History Tobacco Use Types Packs/Day Years Used Date Smoking Tobacco: Never Smokeless Tobacco: Never Comments:Never used Alcohol Use Standard Drinks/Week Comments No 0 (1 standard drink = 0.6 oz pur e alcohol) [facility] Utilities Answer Date Recorded In [...] often do you attend chur ch or buddhist services? More than 4 times per year 05/27/2023 Do you belong to any clubs o r organizations such as episcopal groups, unions, fraternal or athletic groups, or [...] place to sleep or slept in a skilled nursing (including now)? No 05/27/2023 Personal Safety Answer Date Recorded Have you ever been in or are you currently in a harmful physical or emotional relationship or is someone making you feel afraid or unsafe? Denies 06/02/2023 Comments No Sex and Gender Information Value Date Recorded Sex Assigned at Not on file Legal Sex Female 8:04 PM AUTOMATIC PUNCH PRESS OPERATOR Gender Identity Female 02/15/2020 6:08 PM CDT Sexual Orientation Not on file documented as of this encounter Plan of Treatment Not on file documented as of this encounter Procedures Procedure Name Priority Date/Time Associated Diagnosis Comments SCAN - RADIOLOGY/IMAGING 12/08/2023 SCAN - LABS 12/08/2023 documented in this encounter Results * SCAN - LABS (12/08/2023) us Provider Scanning Edited Result - Final * SCAN - RADIOLOGY/IMAGING (12/08/2023) Anatomical Region Laterality Modality Other us Provider Scanning Final Result documented in this encounter Visit Diagnoses Not on filedocumented in this encounter Care Teams Outbound Supervisor Relationship Specialty Start Date End Date Alee Elizondo PA [address] [place] [address] PCP - General Internal Medicine 07/05/23 Sharan Linton MD Referring Physician Gastroenterology 10/31/18 Martha Starks MD Consulting Physician Cardiology 12/24/20 Shama Hines MD [address] [facility] [address] [place] [address] Consulting Physician Pain Management 01/19/21 Artis Grewal MD [address] [place] [address] Consulting Physician Rheumatology 01/30/21 Amy Mayes NP [address] [address] Nurse Practitioner Cardiovascular Disease 04/20/24 Shailesh Dunn MD [address] [address] Consulting Physician Pulmonary Disease 04/20/24 Sangita Farrar PA [address] [place] [address] Physician Individual Pension Adviser Rheumatology 05/15/24 documented as of this encounter
--- OUTSIDE RECORDS SUMMARY | 2024-08-29 18:50 | XMS_ITS | Continuity of Care Document ---
Author Organization [facility] Address [address] [place] [address] [place] [address] Phone Care Team Providers Care Gas Welding Equipment Mechanic Name Role Phone Oswald No DO Unavailable Unavailable Advance Directives Directive Yes / No Effective Date File Name No Information Encounters Encounter Description Practice Location Reason(s) For Visit Diagnoses Date Provider Providers Copied on Encounter [facility], [address] [place] [address] [address], [place], [place], [id number], [place] tel:[phone] [facility] No Information Oneal Combs. [address] [facility], [place], [address], [place]. tel: [phone] Family History Family Member Type Diagnosis Age At Onset No Information Payers Payer name Insurance type Covered democrat ID Authoriza tion(s) No Information Social History Type Description Quantity Date Captured Comments Sex Female Smoking Status No Information Chief Complaint And Reason For Visit No Information Reason For Referral Reason For Referral No Information History Of Present Illness Encounter Date Complaint History Of Prese nt Illness No Information Functional Status Date Functional Assessmen t No Information Instructions Date Instruction Additional Infor mation No Information Assessments Type Assessment Date No Information Patient Care Teams Name Effective Dates (start - stop) Status Members No Information
--- OUTSIDE RECORDS SUMMARY | 2024-08-29 18:50 | XMS_ITS | Encounter Summary ---
Author Organization [facility] Facility Care Team Providers Care Professional Skateboarder Name Role Phone Alee Elizondo Primary Care Provider + [phone] Sharan Linton MD Unavailable +[phone] Taisha Gomez MD Unavailable +[phone] Parag Soto MD Unavailable +[phone] RaziaMartha singh MD Unavailable +[phone] Puneet Uribe MD Unavailable +[phone] Shama Hines MD Unavailable Artis Grewal MD Unavailable [phone] Harrison Pena RN Unavailable +[phone] Nafisa Gregg RN Unavailable +[phone] Tho Kelsey MD Primary Care Provider +[phone] Alee Elizondo Primary Care Provider + [phone] Amy Mayes NP Unavailable +[phone] Shailesh Dunn MD Unavailable [phone] Sangita Farrar Unavailable +[phone] Encounter Details Date Type Department Care Team (Latest Contact Info) Description 08/10/2017 Orders Only [facility]G CLINCONV Provider, MD Tania [address] [place] [address] Social History Tobacco Use Types Packs/Day Years Used Date Smoking Tobacco: Never Smokeless Tobacco: Never Alcohol Use Standard Drinks/Week Comments No 0 (1 standard drink = 0.6 oz pur e alcohol) Comments Unknown Sex and Gender Information Value Date Recorded Sex Assigned at Not on file Legal Sex Female 8:04 PM WEB MARKETING ANALYST Gender Identity Female 02/15/2020 6:08 PM CDT Sexual Orientation Not on file documented as of this encounter Plan of Treatment Not on file documented as of this encounter Procedures Procedure Name Priority Date/Time Associated Diagnosis Comments CARDIOLOGY REPORT 08/10/2017 12: 00 AM WEB MARKETING ANALYST documented in this encounter Results * CARDIOLOGY REPORT (08/10/2017 12:00 AM WEB MARKETING ANALYST) Anatomical Region Laterality Modality Other Narrative 08/10/2017 12:00 AM WEB MARKETING ANALYST Ordered by an unspecified provider. us Historical Provider [facility] LEANDRA LANDRUM Final Result documented in this encounter Visit Diagnoses Not on filedocumented in this encounter Additional Health Concerns Infection Onset Date Last Indicated Resolved Time COVID: Suspected 08/13/2021 08/14/2021 08/14/2021 3:06 AM WEB MARKETING ANALYST COVID: Suspected 08/14/2021 08/14/2021 08/15/2021 3:05 AM WEB MARKETING ANALYST COVID: Suspected 08/14/2021 08/14/2021 08/15/2021 6:25 AM WEB MARKETING ANALYST COVID: Suspected 06/02/2023 06/02/2023 06/02/2023 7:25 PM WEB MARKETING ANALYST COVID: Suspected 07/26/2023 07/26/2023 07/26/2023 3:10 PM WEB MARKETING ANALYST documented as of this encounter Care Teams Professional Skateboarder Relationship Specialty Start Date End Date Alee Elizondo PA [address] [facility] [address] [place] [address] PCP - General Internal Medicine 02/01/17 06/29/23 Tho Kelsey MD [address] [facility] [address] [place] [address] PCP - General Family Medicine 06/30/23 07/04/23 Alee Elizondo PA [address] [place] [address] [place] [address] PCP - General Internal Medicine 07/05/23 Sharan Linton MD [address] [place] [place] [address] Referring Physician Gastroenterology 10/31/18 Taisha Gomez MD [address] [place] [address] [place], [place] [id number] Referring Physician Pulmonary Disease 10/31/18 12/23/20 Parag Soto MD [address] [place] [address] [place] [address] Referring Physician Rheumatology 10/31/18 12/23/20 Martha Starks MD [address] [place] [address] [place] [address] Consulting Physician Cardiology 12/24/20 Puneet Uribe MD [address] [facility] [address] [place] [address] Consulting Physician Rheumatology 12/24/20 01/29/21 Shama Hines MD 4700 [facility] 230 [place] [address] Consulting Physician Pain Management 01/19/21 Artis Grewal MD [address] [place] [address] Consulting Physician Rheumatology 01/30/21 Harrison Pena, JULIUS [address] [place] [address] Computer Tape Librarian 05/30/23 09/04/23 Nafisa Gregg, JULIUS [address] [place] [address] [facility] [address] [place] [address] Computer Tape Librarian 06/06/23 06/12/23 Amy Mayes, LELAND [address] [facility] [address] [facility] 102 [place] [address] Nurse Practitioner Cardiovascular Disease 04/20/24 Shailesh Dunn MD 46[address] [facility] [address] [address] Consulting Physician Pulmonary Disease 04/20/24 Sangita Farrar PA [address] [place] [address] Physician Beauty Culturist Apprentice Rheumatology 05/15/24 documented as of this encounter
--- OUTSIDE RECORDS SUMMARY | 2024-08-29 18:50 | XMS_ITS | Encounter Summary ---
Author Organization [facility] Facility Care Team Providers Care Explosive Expert Name Role Phone Alee Elizondo Primary Care Provider + [phone] Sharan Linton MD Unavailable [phone] Taisha Gomez MD Unavailable [phone] Parag Soto MD Unavailable [phone] [facility] MD Unavailable +[phone] Puneet Uribe MD Unavailable +[phone] Shama Hines MD Unavailable Artis Grewal MD Unavailable [phone] Harrison Pena RN Unavailable +[phone] Nafisa Gregg RN Unavailable +[phone] Tho Kelsey MD Primary Care Provider +[phone] Alee Elizondo Primary Care Provider + [phone] Amy Mayes NP Unavailable +[phone] Shailesh Dunn MD Unavailable +[phone] Sangita Farrar Unavailable +[phone] Encounter Details Date Type Department Care Team (Latest Contact Info) Description 09/14/2016 Orders Only MMG CLINCONV Provider, MD Tania [address] [place] [address] Social History Tobacco Use Types Packs/Day Years Used Date Smoking Tobacco: Never Alcohol Use Standard Drinks/Week Comments No 0 (1 standard drink = 0.6 oz pur e alcohol) Comments Unknown Sex and Gender Information Value Date Recorded Sex Assigned at Not on file Legal Sex Female 8:04 PM PHOTO LAB MANAGER Gender Identity Female 02/15/2020 6:08 PM CDT Sexual Orientation Not on file documented as of this encounter Plan of Treatment Not on file documented as of this encounter Procedures Procedure Name Priority Date/Time Associated Diagnosis Comments PROCEDURE - RESULT 09/09/2016 12 :00 AM PHOTO LAB MANAGER documented in this encounter Results * PROCEDURE - RESULT (09/09/2016 12:00 AM PHOTO LAB MANAGER) Narrative 09/09/2016 12:00 AM PHOTO LAB MANAGER Ordered by an unspecified provider. Historical Provider Final Res ult documented in this encounter Visit Diagnoses Not on filedocumented in this encounter Additional Health Concerns Infection Onset Date Last Indicated Resolved Time COVID: Suspected 08/13/2021 08/14/2021 08/14/2021 3:06 AM PHOTO LAB MANAGER COVID: Suspected 08/14/2021 08/14/2021 08/15/2021 3:05 AM PHOTO LAB MANAGER COVID: Suspected 08/14/2021 08/14/2021 08/15/2021 6:25 AM PHOTO LAB MANAGER COVID: Suspected 06/02/2023 06/02/2023 06/02/2023 7:25 PM PHOTO LAB MANAGER COVID: Suspected 07/26/2023 07/26/2023 07/26/2023 3:10 PM PHOTO LAB MANAGER documented as of this encounter Care Teams Explosive Expert Relationship Specialty Start Date End Date Alee Elizondo PA [address] [facility] 500 [place] [address] PCP - General Internal Medicine 02/01/17 06/29/23 Tho Kelsey MD [address]00 [facility] 400 [place] [address] PCP - General Family Medicine 06/30/23 07/04/23 Alee Elizondo PA [address] [place] [address] [place] [address] PCP - General Internal Medicine 07/05/23 Sharan Linton MD [address] [place] [address] [place] [address] Referring Physician Gastroenterology 10/31/18 Taisha Gomez MD [address] [place] [address] [place], [place] [id number] Referring Physician Pulmonary Disease 10/31/18 12/23/20 Parag Soto MD [address] [place] [address] [place] [address] Referring Physician Rheumatology 10/31/18 12/23/20 Martha Starks MD [address] [place] [address] [place] [address] Consulting Physician Cardiology 12/24/20 Puneet Uribe MD [address] [facility] 110 [place] [address] Consulting Physician Rheumatology 12/24/20 01/29/21 Shama Hines MD [address]00 [facility] 230 [place] [address] Consulting Physician Pain Management 01/19/21 Artis Grewal MD [address] [place] [address] Consulting Physician Rheumatology 01/30/21 Harrison Pena, JULIUS [address] [place] [address] Ammunition Supervisor 05/30/23 09/04/23 Nafisa Gregg, RN [address] [place] [address] [address] [place] [address] Ammunition Supervisor 06/06/23 06/12/23 Amy Mayes NP [address] [facility] [address] [facility] 102 [place] [address] Nurse Practitioner Cardiovascular Disease 04/20/24 Shailesh Dunn MD [address] [facility] [address] [place] [address] Consulting Physician Pulmonary Disease 04/20/24 Sangita Farrar PA [address] [place] [address] Physician Gimp Tacker Rheumatology 05/15/24 documented as of this encounter
--- OUTSIDE RECORDS SUMMARY | 2024-08-29 18:50 | XMS_ITS | Continuity of Care Document ---
Author Organization [employer] [place] Address [address] [place] [address] [address] [place] [address] Phone Care Team Providers Care Platform Material Handling Supervisor Name Role Phone Torsten Ramesh Unavailable Unavailable Procedures Procedure Date THERAPEUTIC EXERCISES NEUROMUSCULAR RE-ED MANUAL THERAPY FUNC ACTIVITY HOT/COLD PACK ELECTRIC STIMULATION UNATT THERAPEUTIC EXERCISES NEUROMUSCULAR RE-ED MANUAL THERAPY FUNC ACTIVITY HOT/COLD PACK ELECTRIC STIMULATION UNATT THERAPEUTIC EXERCISES NEUROMUSCULAR RE-ED MANUAL THERAPY FUNC ACTIVITY HOT/COLD PACK ELECTRIC STIMULATION UNA PT RE-EVALUATION THERAPEUTIC EXERCISES NEUROMUSCULAR RE-ED MANUAL THERAPY FUNC ACTIVITY HOT/COLD PACK ELECTRIC STIMULATION UNATT THERAPEUTIC EXERCISES NEUROMUSCULAR RE-ED MANUAL THERAPY FUNC ACTIVITY HOT/COLD PACK THERAPEUTIC EXERCISES NEUROMUSCULAR RE-ED MANUAL THERAPY HOT/COLD PACK THERAPEUTIC EXERCISES NEUROMUSCULAR RE-ED MANUAL THERAPY HOT/COLD PACK PT EVALUATION Advance Directives Directive Yes / No Effective Date File Name No Information Encounters Encounter Description Practice Location Reason(s) For Visit Diagnoses Date Provider Providers Copied on Encounter [facility], [address] [facility], [place], [place], [id number], [place] tel:[phone] [place] No Information 0 5 Muehl Torsten. [address] [facility], [address], [place], [address], [place]. tel: [phone] Referring Provider: Alee Elizondo, [address] [place] [address] [address], [place], [address]. tel:[phone] [facility] [address], [place], [place], [id number], [place] tel:[phone] [place] No Information 0 4 Muehl Torsten. [address] [place] [address], [address], [place], [address], [place]. tel: [phone] Referring Provider: Alee Elizondo, [address] [place] [address] [address], [place], [address]. tel:[phone] [place] [address] [facility] [address], [place], [place], [id number], [place] tel:[phone] [place] No Information 0 4 Muehl Torsten. [address] [place] [address], [address], [place], [address], [place]. tel: [phone] Referring Provider: Alee Elizondo, [address] [place] [address] Road [address], [place], [address]. tel:[phone] [facility] [address] [facility] [address], [place], [place], [id number], [place] tel:[phone] [place] No Information 2 4 Muehl Torsten. [address] [place] [address], [address], [place], [address], [place]. tel: [phone] Referring Provider: Alee Elizondo, [address] [facility] [address], [place], [address]. tel:[phone] [facility] [facility] [address], [place], [id number], [place] tel:[phone] [place] No Information 4 Muehl Torsten. [address] [facility], [facility] [address], [place], [facility], . tel: [phone] Referring Provider: Alee Elizondo, [address] [place] [address] Road [address], [place], [address]. tel:[phone] [facility] [facility] [address], [place], [id number], [place] tel:[phone] [place] No Information Phill Torsten. [address] [place] [address], [address], [place], [facility], [place]. tel: [phone] Referring Provider: Alee Elizondo, [address] [place] [address] Road [address], [place], [address]. tel:[phone] [facility] [facility] [address], [place], [id number], [place] tel:[phone] [place] No Information Phill Torsten. [address] [place] [address], [address], [place], [facility], [place]. tel: [phone] Referring Provider: Alee Elizondo, [address] [place] [address] Road [address], [place], [address]. tel:[phone] [facility] [facility] [address], [place], [id number], [place] tel:[phone] [place] Lumbago 4 Muehl Torsten. [address] [facility], [address], [place], [address], [place]. tel: [phone] Referring Provider: Alee Elizondo, [facility] [facility] [address], [place], [address]. tel:[phone] Family History Family Member Type Diagnosis Age [...]
[2024-08-29 21:33] VITALS: BP 132/73; PULSE 106; RESP 20; O2SAT 96
[2024-08-29 22:48] VITALS: BP 114/60; PULSE 94; RESP 16; O2SAT 95
[2024-08-29 22:58] VITALS: BP 114/60; PULSE 93; RESP 16; O2SAT 95
[2024-08-29 22:58] LABS: Basophils Percent Auto 0.2 % (0.2-1.2); Hematocrit 42.9 % (37.0-47.0); Hemoglobin 14.2 g/dL (12.0-15.0); Immature Granulocyte Absolute 0.02 K/mm3 (0.00-0.031); Immature Granulocyte Percent A 0.4 % (0-0.5); Lymphocytes Absolute Auto 0.46 K/mm3 (0.9-3.2); Lymphocytes Percent Auto 9.4 % (18.3-44.2); Mean Corpuscular HGB Conc 33.1 g/dl (32-36); Mean Corpuscular Hemoglobin 31.9 pg (26-34); Mean Corpuscular Volume 96.4 fl (80-100); Mean Platelet Volume 9.4 fl (7.4-10.4); Monocytes Absolute Auto 0.3 K/mm3 (0.1-0.6); Monocytes Percent Auto 5.3 % (2.6-8.5); Neutrophils Absolute Auto 4.1 K/mm3 (1.3-6.7); Neutrophils Percent Auto 84.7 % (45.5-73.1); Platelet Count Result 212 k/mm3 (150-375); Red Blood Count 4.45 M/mm3 (4.2-5.4); Red Cell Distribution Width 14.6 % (11.5-14.5); White Blood Count 4.9 K/mm3 (4.5-10.0)
[2024-08-29 23:08] LABS: Alanine Aminotransferase 23 U/L (6-35); Albumin Level 4.3 g/dL (3.5-5.1); Alkaline Phosphatase 131 U/L (38-126); Anion Gap 13 mmol/L (4-12); Aspartate Amino Transferase 30 U/L (14-36); Bilirubin,Total 0.7 mg/dL (0.2-1.3); Blood Urea Nitrogen 24 mg/dL (7-17); Calcium 9.8 mg/dL (8.4-10.2); Carbon Dioxide 18 mmol/L (22-30); Chloride 110 mmol/L (98-107); Estimated CRCL calculation 79 ml/min; Estimated Glomerular Filt Rate > 60; Glucose 149 mg/dL (65-110); Lipase 19 U/L (23-300); Potassium 4.1 mmol/L (3.4-5.0); Sodium 141 mmol/L (137-145)
--- OUTSIDE RECORDS SUMMARY | 2024-08-29 23:11 | XMS_ITS | Encounter Summary ---
Author Organization [facility] Facility Care Team Providers Care Stone Driller Name Role Phone Alee Elizondo Primary Care Provider + [phone] Sharan Linton MD Unavailable [phone] Taisha Gomez MD Unavailable [phone] Parag Soto MD Unavailable [phone] [facility] MD Unavailable [phone] Puneet Uribe MD Unavailable [phone] Shama Hines MD Unavailable Artis Grewal MD Unavailable [phone] Harrison Pena RN Unavailable [phone] Nafisa Gregg RN Unavailable [phone] Tho Kelsey MD Primary Care Provider [phone] Alee Elizodno Primary Care Provider + [phone] Amy Mayes NP Unavailable [phone] Shailesh Dunn MD Unavailable [phone] Sangita Farrar Unavailable [phone] Encounter Details Date Type Department Care Team (Latest Contact Info) Description 09/29/2015 Orders Only MMG CLINCONV Provider, MD Tania [address] [place] [address] Social History Tobacco Use Types Packs/Day Years Used Date Smoking Tobacco: Never Assessed Comments Unknown Sex and Gender Information Value Date Recorded Sex Assigned at Not on file Legal Sex Female 8:04 PM TWISTING FRAME FIXER Gender Identity Female 02/15/2020 6:08 PM CDT [...] COVID: Suspected 08/13/2021 08/14/2021 08/14/2021 3:06 AM TWISTING FRAME FIXER COVID: Suspected 08/14/2021 08/14/2021 08/15/2021 3:05 AM TWISTING FRAME FIXER COVID: Suspected 08/14/2021 08/14/2021 08/15/2021 6:25 AM TWISTING FRAME FIXER COVID: Suspected 06/02/2023 06/02/2023 06/02/2023 7:25 PM TWISTING FRAME FIXER COVID: Suspected 07/26/2023 07/26/2023 07/26/2023 3:10 PM TWISTING FRAME FIXER documented as of this encounter Care Teams Stone Driller Relationship Specialty Start Date End Date Alee Elizondo PA [address] [facility] [address] [place] [address] PCP - General Internal Medicine 02/01/17 06/29/23 Tho Kelsey MD [address]00 [facility] [address] [place] [address] PCP - General Family Medicine 06/30/23 07/04/23 Alee Elizondo PA [address] [place] [place] [address] PCP - General Internal Medicine 07/05/23 Sharan Linton MD [address] [place] [place] [address] Referring Physician Gastroenterology 10/31/18 Taisha Gomez MD [address] [place] [address] [place] [address] Referring Physician Pulmonary Disease 10/31/18 12/23/20 Parag Soto MD [address] [place] [place] [address] Referring Physician Rheumatology 10/31/18 12/23/20 Martha Starks MD [address] [place] [address] [place] [address] Consulting Physician Cardiology 12/24/20 Puneet Uribe MD [address] [facility] [address] [place] [address] Consulting Physician Rheumatology 12/24/20 01/29/21 Shama Hines MD 4700 [facility] 230 [place] [address] Consulting Physician Pain Management 01/19/21 Artis Grewal MD [address] [place] [address] Consulting Physician Rheumatology 01/30/21 Harrison Pena RN [address] [place] [address] Disaster Recovery Consultant 05/30/23 09/04/23 Nafisa Gregg, JULIUS [address] [place] [address] [address] [place] [address] Disaster Recovery Consultant 06/06/23 06/12/23 Amy Mayes NP [address] [address] Nurse Practitioner Cardiovascular Disease 04/20/24 Shailesh Dunn MD [address] [facility] [address] [place] [address] Consulting Physician Pulmonary Disease 04/20/24 Sangita Farrar PA [address] [place] [address] Physician Veterinary Physiologist Rheumatology 05/15/24 documented as of this encounter
--- OUTSIDE RECORDS SUMMARY | 2024-08-29 23:11 | XMS_ITS | Encounter Summary ---
Author Organization [facility] Healthcare Address [address] [place] [address] Care Team Providers Care Appointment Manager Name Role Phone Sharan Linton MD Unavailable [phone] Martha Starks MD Unavailable [phone] Shama Hines MD Unavailable Artis Grewal MD Unavailable Alee Elizondo Primary Care Provider +- [phone] Amy Mayes NP Unavailable [phone] Shailesh Dunn MD Unavailable [phone] Sangita Farrar Unavailable [phone] Reason for Visit * Reason Onset Date Comments Med Refill 08/29/2024 Ropinirol HCL 0. 5MG tab Encounter Details Date Type Department Care Team (Late st Contact Info) Description 08/29/2024 Telephone [facility] Medical Group Pulmonary [address] [place] [address] Shailesh Dunn MD [facility] [address] [address] Med Refill (Ropinirol HCL 0.5MG tab) Social History Tobacco Use Types Packs/Day Years Used Date Smoking Tobacco: Never Smokeless Tobacco: Never Comments:Never used Alcohol Use Standard Drinks/Week Comments No 0 (1 standard drink = 0.6 oz pur e alcohol) [facility] Utilities Answer Date Recorded In the [...] often do you attend chur ch or oriental orthodox services? 1 to 4 times per year 05/30/2024 Do you belong to any clubs o r organizations such as religion groups, unions, fraternal or athletic groups, or [...] place to sleep or slept in a chcf (including now)? No 05/27/2023 Housing Stability Vital Sign Answer Jarrett e Recorded In the last 12 months, was t here a time when you were not able to pay the mortgage or rent on time? No 05/30/2024 In the past 12 months, how m any times have you moved where you were living? 0 05/30/2024 At any time in the past 12 m [facility], were you homeless or living in a chcf (including now)? No 05/30/2024 Personal Safety Answer Date Recorded Have you ever been in or are you currently in a harmful physical or emotional relationship or is someone making you feel afraid or unsafe? Denies 05/30/2024 Comments No Sex and Gender Information Value Date Recorded Sex Assigned at Not on file Legal Sex Female 8:04 PM REPAIRER WOOD FURNITURE Gender Identity Female 02/15/2020 6:08 PM CDT [...] Last seen: 08/02/24 UP coming appointment: 08/06/25 IRER WOOD FURNITURE documented in this encounter Plan of Treatment [...] documented as of this encounter Care Teams Appointment Manager Relationship Specialty Start Date End Date Alee Elizondo PA 10[address] [facility] 500 [place] [address] PCP - General Internal Medicine 07/05/23 Sharan Linton MD Referring Physician Gastroenterology 10/31/18 Martha Starks MD Consulting Physician Cardiology 12/24/20 Shama Hines MD [address] [facility] [address] [place] [address] Consulting Physician Pain Management 01/19/21 Artis Grewal MD [address] [place] [address] Consulting Physician Rheumatology 01/30/21 Amy Mayes NP [address] [facility] [address] [facility] 102 [place] [address] Nurse Practitioner Cardiovascular Disease 04/20/24 Shailesh Dunn MD [address] [facility] [address] [place] [address] Consulting Physician Pulmonary Disease 04/20/24 Sangita Farrar PA [address] [place] [address] Physician License Issuer Rheumatology 05/15/24 documented as of this encounter
--- OUTSIDE RECORDS SUMMARY | 2024-08-29 23:11 | XMS_ITS | Encounter Summary ---
Author Organization [facility] Facility Care Team Providers Care Onyx Chip Terrazzo Worker Name Role Phone Alee Elizondo Primary Care Provider + [phone] Sharan Linton MD Unavailable [phone] Taisha Gomez MD Unavailable [phone] Parag Soto MD Unavailable [phone] RaziaMartha singh MD Unavailable [phone] Puneet Uribe MD Unavailable [phone] Shama Hines MD Unavailable Artis Grewal MD Unavailable [phone] Harrison Pena RN Unavailable [phone] Nafisa Gregg RN Unavailable Tho Kelsey MD Primary Care Provider [phone] Alee Elizondo Primary Care Provider + [phone] Amy Mayes NP Unavailable [phone] Shailesh Dunn MD Unavailable [phone] Sangita Farrar Unavailable +[phone] Encounter Details Date Type Department Care Team (Latest Contact Info) Description 12/31/2015 Orders Only [facility] CLINCONV Provider, MD Tania [address] [place] [address] Social History Tobacco Use Types Packs/Day Years Used Date Smoking Tobacco: Never Alcohol Use Standard Drinks/Week Comments No 0 (1 standard drink = 0.6 oz pur e alcohol) Comments Unknown Sex and Gender Information Value Date Recorded Sex Assigned at Not on file Legal Sex Female 8:04 PM COMMUNICATION CLERK Gender Identity Female 02/15/2020 6:08 PM CDT [...] COVID: Suspected 08/13/2021 08/14/2021 08/14/2021 3:06 AM COMMUNICATION CLERK COVID: Suspected 08/14/2021 08/14/2021 08/15/2021 3:05 AM COMMUNICATION CLERK COVID: Suspected 08/14/2021 08/14/2021 08/15/2021 6:25 AM COMMUNICATION CLERK COVID: Suspected 06/02/2023 06/02/2023 06/02/2023 7:25 PM COMMUNICATION CLERK COVID: Suspected 07/26/2023 07/26/2023 07/26/2023 3:10 PM COMMUNICATION CLERK documented as of this encounter Care Teams Onyx Chip Terrazzo Worker Relationship Specialty Start Date End Date Alee Elizondo PA [address] [facility] [address] [place] [address] PCP - General Internal Medicine 02/01/17 06/29/23 Toh Kelsey MD [address] [facility] [address] [place] [address] PCP - General Family Medicine 06/30/23 07/04/23 Alee Elizondo PA [address] [place] [address] PCP - General Internal Medicine 07/05/23 Sharan Linton MD [address] [place], [place] [id number] Referring Physician Gastroenterology 10/31/18 Taisha Gomez MD [address] [place], [place] [id number] Referring Physician Pulmonary Disease 10/31/18 12/23/20 Parag Soto MD [address] [place] [address] Referring Physician Rheumatology 10/31/18 12/23/20 RaziaMartha singh MD [address] [place] [address] Consulting Physician Cardiology 12/24/20 Puneet Uribe MD [address] [facility] 110 [place] [address] Consulting Physician Rheumatology 12/24/20 01/29/21 Shama Hines MD [address]00 [facility] 230 [place] [address] Consulting Physician Pain Management 01/19/21 Artis Grewal MD [address] [place] [address] Consulting Physician Rheumatology 01/30/21 Harrison Pena, JULIUS [address] [place] [address] Nursing Service Administrator 05/30/23 09/04/23 Nafisa Gregg, JULIUS [address] [place] [address] [facility] 300 [place] [address] Nursing Service Administrator 06/06/23 06/12/23 Amy Mayes NP [address] [facility] [address] [facility] 102 [place] [address] Nurse Practitioner Cardiovascular Disease 04/20/24 Shailesh Dunn MD [address] [address] Consulting Physician Pulmonary Disease 04/20/24 Sangita Farrar PA [address] [place] [address] Physician Process Server Rheumatology 05/15/24 documented as of this encounter
--- OUTSIDE RECORDS SUMMARY | 2024-08-29 23:11 | XMS_ITS | Encounter Summary ---
Author Organization [facility] Care Team Providers Care Rn Cvicu Name Role Phone Alee Elizondo Primary Care Provider + [phone] Sharan Linton MD Unavailable Taisha Gomez MD Unavailable [phone] Parag Soto MD Unavailable [phone] RaziaMartha singh MD Unavailable [phone] Puneet Uribe MD Unavailable [phone] Shama Hines MD Unavailable Artis Grewal MD Unavailable [phone] Harrison Pena RN Unavailable +[phone] Nafisa Gregg RN Unavailable [phone] Tho Kelsey MD Primary Care Provider [phone] Alee Elizondo Primary Care Provider + [phone] Amy Mayes NP Unavailable [phone] Shailesh Dunn MD Unavailable [phone] Sangita Farrar Unavailable +[phone] Encounter Details Date Type Department Care Team (Latest Contact Info) Description 03/24/2016 Orders Only [facility] CLINCONV Provider, MD Tania [address] [place] [address] Social History Tobacco Use Types Packs/Day Years Used Date Smoking Tobacco: Never Alcohol Use Standard Drinks/Week Comments No 0 (1 standard drink = 0.6 oz pur e alcohol) Comments Unknown Sex and Gender Information Value Date Recorded Sex Assigned at Not on file Legal Sex Female 8:04 PM CAGE TENDER Gender Identity Female 02/15/2020 6:08 PM CDT [...] COVID: Suspected 08/13/2021 08/14/2021 08/14/2021 3:06 AM CAGE TENDER COVID: Suspected 08/14/2021 08/14/2021 08/15/2021 3:05 AM CAGE TENDER COVID: Suspected 08/14/2021 08/14/2021 08/15/2021 6:25 AM CAGE TENDER COVID: Suspected 06/02/2023 06/02/2023 06/02/2023 7:25 PM CAGE TENDER COVID: Suspected 07/26/2023 07/26/2023 07/26/2023 3:10 PM CAGE TENDER documented as of this encounter Care Teams Rn Cvicu Relationship Specialty Start Date End Date Alee Elizondo PA [address] [facility] [address] [place] [address] PCP - General Internal Medicine 02/01/17 06/29/23 Tho Kelsey MD [address] [facility] [address] [place] [address] PCP - General Family Medicine 06/30/23 07/04/23 Alee Elizondo PA [address] [place] [address] PCP - General Internal Medicine 07/05/23 Sharan Linton MD [address] [place] [address] Referring Physician Gastroenterology 10/31/18 Taisha Gomez MD [address] [place], [place] [address] Referring Physician Pulmonary Disease 10/31/18 12/23/20 Parag Soto MD [address] [facility] [address] [place] [address] Referring Physician Rheumatology 10/31/18 12/23/20 Martha Starks MD [address] [facility] [address] [place] [address] Consulting Physician Cardiology 12/24/20 Puneet Uribe MD [address] [facility] 110 [place] [address] Consulting Physician Rheumatology 12/24/20 01/29/21 Shama Hines MD 4700 [facility] 230 [place] [address] Consulting Physician Pain Management 01/19/21 Artis Grewal MD [address] [place] [address] Consulting Physician Rheumatology 01/30/21 Harrison Pena, JULIUS [address] [place] [address] Dairy Bacteriologist 05/30/23 09/04/23 Nafisa Gregg, JULIUS [address] [place] [address] [address] [place] [address] Dairy Bacteriologist 06/06/23 06/12/23 Amy Mayes NP [address] [facility] [address] [facility] 102 [place] [address] Nurse Practitioner Cardiovascular Disease 04/20/24 Shailesh Dunn MD [address] [facility] [address] [place] [address] Consulting Physician Pulmonary Disease 04/20/24 Sangita Farrar PA [address] [place] [address] Physician Doors Prefitter Rheumatology 05/15/24 documented as of this encounter
--- OUTSIDE RECORDS SUMMARY | 2024-08-29 23:11 | XMS_ITS | Continuity of Care Document ---
Author Organization [facility] Address [address] [place] [address] [place] [address] Phone Care Team Providers Care Photographic Laboratory Supervisor Name Role Phone Oswald No DO Unavailable Unavailable Advance Directives Directive Yes / No Effective Date File Name No Information Encounters Encounter Description Practice Location Reason(s) For Visit Diagnoses Date Provider Providers Copied on Encounter [facility], [address] [place] [address] [address], [place], [place], [id number], [place] tel:[phone] [facility] No Information Oneal Combs. [address] [facility], [place], [address], [place]. tel: [phone] Family History Family Member Type Diagnosis Age At Onset No Information Payers Payer name Insurance type Covered libertarian ID Authoriza tion(s) No Information Social History [...]
--- OUTSIDE RECORDS SUMMARY | 2024-08-29 23:11 | XMS_ITS | Referral Summary ---
Author Organization [facility] Address [address] [facility] [place] [address] Care Team Providers Care Critical Care Registered Nurse Name Role Phone Darvin Harden MD Primary Care Provider [phone] Source Comments [facility],non-owned Affiliates and Associated Physician Practices is amultiple site organization consisting of ambulatory clinics and hospital sitesin [place], [place], [place] and [place]. This disclosure is being madepursuant to the Care Everywhere program and may not contain all information available regarding this patient. Last updated 18.[facility] Allergies Active Allergy Reactions Criticality Noted Date [...] fluticasone propionate (Flonase) 50 MCG/ACT nasal spray [place] 2 (two) sprays into the nose once [...] of Treatment Not on file Care Teams Critical Care Registered Nurse Relationship Specialty Start Date End Date Darvin Harden MD [address] [place] [address] PCP - General 07/11/19
--- OUTSIDE RECORDS SUMMARY | 2024-08-29 23:11 | XMS_ITS | Continuity of Care Document ---
Author Organization [facility] Address [address] [place] [address] [address] [place] [address] Phone Care Team Providers Care Counter Pocket Sewer Name Role Phone Torsten Ramesh Unavailable Unavailable [...] Diagnoses Date Provider Providers Copied on Encounter [facility], [address] [facility], [place], [place], [id number], [place] tel:[phone] [place] No Information 0 5 Muehl Torsten. [address] [facility], [address], [place], [address], [place]. tel: [phone] Referring Provider: Alee Elizondo, [address] [place] [address] [address], [place], [address]. tel:[phone] [facility] [address] [facility] [address], [place], [place], [id number], [place] tel:[phone] [place] No Information 0 4 Muehl Torsten. [address] [place] [address], [address], [place], [address], [place]. tel: [phone] Referring Provider: Alee Elizondo, [address] [place] [address] [address], [place], [address]. tel:[phone] [place] [address] [facility] [address], [place], [place], [id number], [place] tel:[phone] [place] No Information 0 4 Muehl Torsten. [address] [place] [address], [address], [place], [address], [place]. tel: [phone] Referring Provider: Alee Elizondo, [address] [place] [address] Road [address], [place], [address]. tel:[phone] [facility] [address] [facility] [address], [place], [place], [id number], [place] tel:[phone] [place] No Information 2 4 Muehl Torsten. [address] [place] [address], [address], [place], [address], [place]. tel: [phone] Referring Provider: Alee Elizondo, [address] [email or web address] [address], [place], [address]. tel:[phone] [facility] [facility] [address], [place], [address], [place] tel:[phone] [place] No Information 4 Muehl Torsten. [address] [facility], [facility] [address], [place], [facility], . tel: [phone] Referring Provider: Alee Elizondo, [address] [place] [address] Road [address], [place], [address]. tel:[phone] [facility] [facility] [address], [place], [id number], [place] tel:[phone] [place] No Information Phill Torsten. [address] [place] [address], [address], [place], [facility], [place]. tel: [phone] Referring Provider: Alee Elizondo, [address] [place] [address] Road [address], [place], [address]. tel:[phone] [facility] [facility] [address], [place], [address], [place] tel:[phone] [place] No Information Phill Torsten. [address] [place] [address], [address], [place], [facility], [place]. tel: [phone] Referring Provider: Alee Elizondo, [address] [place] [address] Road [address], [place], [address]. tel:[phone] [facility] [facility] [address], [place], [id number], [place] tel:[phone] [place] Lumbago 4 Muehl Torsten. [address] [facility], [address], [place], [address], [place]. tel: [phone] Referring Provider: Alee Elizondo, [facility] [facility] [[email or web address] [address], [place], [address]. tel:[phone] Family History Family Member Type Diagnosis Age At Onset No Information Payers Payer name Insurance type Covered constitution party ID Authoriza tion(s) No Information Social History [...]
--- OUTSIDE RECORDS SUMMARY | 2024-08-29 23:11 | XMS_ITS | Patient Health Summary ---
Author Organization [facility] Address [address] [facility] [place] [address] Care Team Providers Care Records Section Supervisor Name Role Phone Darvin Harden MD Primary Care Provider [phone] Note from [facility],non-owned Affiliates and Associated Physician Practices is amultiple site organization consisting of ambulatory clinics and hospital sitesin [place], [place], [place] and [place]. This disclosure is being madepursuant to the Care Everywhere program and may not contain all information available regarding this patient. Last updated 18.[facility] Allergies * Meperidine(Urticaria) -Medium Criticality * [...] propionate (Flonase) 50 MCG/ACT nasal spray(Started 07/26/2023) [place] 2 (two) sprays into the nose once [...] Sexual Orientation Not on file Procedures * IA ESOPHAGUS MOTILITY STUDY(Performed 10/19/2023) Performed for Gastroesophageal reflux disease, unspecified whether esophagitis present, Hiatal hernia * DERMATOPATHOLOGY(Performed 02/16/2022) Results * DERMATOPATHOLOGY (02/16/2022 12:00 AM CDT) Case Report Dermatopathology Report Case: [id number] Authorizing Provider: Stacey North DO Collected: 02/16/2022 12:00 AM Ordering Location: [facility] DermPath Lab Received: 02/16/2022 04:40 PM Pathologist: [...] specimen consists of a shave biopsy measuring [id number]. Jar 0. Specimen B: Received is one formalin filled container labeled with the patient's name and designated mid forehead. The specimen consists of a shave biopsy measuring [id number]. Jar 0. 2:24 PM CDT DERMATOPATHOLOGY LABORATORY [...] characteristic determined by the Dermatopathology Laboratory at [facility], directed by Dr. Leah Gayle. These tests need not be, and therefore are not, approved by the [place] Food and Drug Administration. The tests are used for clinical purposes. Billing Codes Specimen Charges Stain Charges 67609 12566 1 1 2 2:24 PM CDT DERMATOPATHOLOGY LABORATORY Embedded Images 2 2:24 PM CDT DERMATOPATHOLOGY LABORATORY Pathology/Cytology TISSUE SPECIMEN FROM SKIN / Unknown 02/16/2022 02/16/2022 4:40 PM CDT Miscellaneous samples (specimen) TISSUE SPECIMEN FROM SKIN / Unknown 02/16/2022 02/16/2022 4:40 PM CDT Stacey North DO LAB - PATHOLOGY/C YTOLOGY ORDERABLES DERMATOPATHOLOGY LABORATORY [facility] - Department of Dermatology [facility] [address] [place] [address], [address] [phone] Care Teams Records Section Supervisor Relationship Specialty Start Date End Date Darvin Harden MD [address] [facility] [address] [place] [address] PCP - General 07/11/19
--- OUTSIDE RECORDS SUMMARY | 2024-08-29 23:11 | XMS_ITS | Encounter Summary ---
Author Organization [facility] Healthcare Address [address] [place] [address] Care Team Providers Care Manager Flight Operations Name Role Phone Sharan Linton MD Unavailable [phone] Martha Starks MD Unavailable [phone] Shama Hines MD Unavailable Artis Grewal MD Unavailable [phone] Alee Elizondo Primary Care Provider [phone] Amy Mayes NP Unavailable [phone] Shailesh Dunn MD Unavailable [phone] Sangita Farrar Unavailable [phone] Encounter Details Date Type Department Care Team (Late st Contact Info) Description 10/11/2023 Orders Only [facility] Health Information Management [address] [place] [address] Scanning, Provider Social History Tobacco Use Types Packs/Day Years Used Date Smoking Tobacco: Never Smokeless Tobacco: Never Comments:Never used Alcohol Use Standard Drinks/Week Comments No 0 (1 standard drink = 0.6 oz pur e alcohol) [facility] Utilities Answer Date Recorded In the [...] often do you attend chur ch or bahai services? More than 4 times per year [...] place to sleep or slept in a care home (including now)? No 05/27/2023 Personal Safety Answer Date Recorded Have you ever been in or are you currently in a harmful physical or emotional relationship or is someone making you feel afraid or unsafe? Denies 06/02/2023 Comments No Sex and Gender Information Value Date Recorded Sex Assigned at Not on file Legal Sex Female 8:04 PM RETRIMMER Gender Identity Female 02/15/2020 6:08 PM CDT [...] on filedocumented in this encounter Care Teams Manager Flight Operations Relationship Specialty Start Date End Date Alee Elizondo PA [address] [facility] 500 [place] [address] PCP - General Internal Medicine 07/05/23 Sharan Linton MD Referring Physician Gastroenterology 10/31/18 Martha Starks MD Consulting Physician Cardiology 12/24/20 Shama Hines MD [address] [facility] [address] [place] [address] Consulting Physician Pain Management 01/19/21 Artis Grewal MD [address] [place] [address] Consulting Physician Rheumatology 01/30/21 Amy Mayes NP [address] [place] [address] Nurse Practitioner Cardiovascular Disease 04/20/24 Shailesh Dunn MD [address] [address] Consulting Physician Pulmonary Disease 04/20/24 Sangita Farrar PA [address] [place] [address] Rheumatology 05/15/24 documented as of this encounter
--- OUTSIDE RECORDS SUMMARY | 2024-08-29 23:11 | XMS_ITS | Clinical Summary ---
Author Organization [facility] Address [address] [place] [address] Care Team Providers Care Can Dryer Name Role Phone Unavailable Primary Care Provider [...]
--- OUTSIDE RECORDS SUMMARY | 2024-08-29 23:11 | XMS_ITS | Clinical Summary ---
Author Organization [facility] Address [address] [place] [address] Care Team Providers Care Medical Data Analyst Name Role Phone Darvin Harden MD Primary Care Provider [phone] Source Comments [facility],non-owned Affiliates and Associated Physician Practices is amultiple site organization consisting of ambulatory clinics and hospital sitesin [place] and [place]. This disclosure is being madepursuant to the Care Everywhere program and may not contain all information available regarding this patient. Last updated 18.[facility] Allergies Active Allergy Reactions Criticality Noted Date [...] fluticasone propionate (Flonase) 50 MCG/ACT nasal spray [place] 2 (two) sprays into the nose once [...] age to complete this topic Care Teams Medical Data Analyst Relationship Specialty Start Date End Date Darvin Harden MD [address] [place] [address] PCP - General 07/11/19
--- OUTSIDE RECORDS SUMMARY | 2024-08-29 23:11 | XMS_ITS | Encounter Summary ---
Author Organization [facility] Healthcare Address [address] [place] [address] Care Team Providers Care Lump 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 Name Role Phone Sharan Linton MD Unavailable [phone] Martha Starks MD Unavailable [phone] Shama Hines MD Unavailable Artis Grewal MD Unavailable [phone] Alee Elizondo Primary Care Provider [phone] Amy Mayes NP Unavailable [phone] Shailesh Dunn MD Unavailable [phone] Sangita Farrar Unavailable [phone] Reason for Visit * Reason Onset Date Comments Leg Pain 08/29/2024 Encounter Details Date Type Department Care Team (Late st Contact Info) Description 08/29/2024 Nurse Triage [facility] Family Medicine [address] [facility] [address] [place] [address] Alee Elizondo PA [address] [facility] [address] [place] [address] Social History Tobacco Use Types Packs/Day Years Used Date Smoking Tobacco: Never Smokeless Tobacco: Never Comments:Never used Alcohol Use Standard Drinks/Week Comments No 0 (1 standard drink = 0.6 oz pur e alcohol) [facility] Utilities Answer Date Recorded In the past 12 months has e [employer] gas, oil, or water [employer] threatened to shut off services in your [...] often do you attend chur ch or christianity services? 1 to 4 times per year 05/30/2024 Do you belong to any clubs o r organizations such as taoism groups, unions, fraternal or athletic groups, or [...] any time in the past 12 m [facility], were you homeless or living in a [...] on file Legal Sex Female 8:04 PM MORTARMAN Gender Identity Female 02/15/2020 6:08 PM CDT [...] do any normal activities) Protocols used: Leg [id number] ARMAN * Telephone Encounter - Ivon Macario RN - 08/29/2024 11:13 AM CST Regarding: moderate pain in right leg from groin to foot, worse when walking ----- Message from Rahel Ovalle sent at 08/29/2024 9:46 AM MORTARMAN ----- Symptom Based Call Chief Complaint(s): moderate [...] message need to be routed? Yes-Action Needed ARMAN documented in this encounter Plan of Treatment Not on file documented as of this encounter Visit Diagnoses Not on filedocumented in this encounter Care Teams Lump 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 Relationship Specialty Start Date End Date Alee Elizondo PA [address] [facility] 500 [place] [address] PCP - General Internal Medicine 07/05/23 Sharan Linton MD Referring Physician Gastroenterology 10/31/18 Martha Starks MD Consulting Physician Cardiology 12/24/20 Shama Hines MD [address] [facility] [address] [place] [address] Consulting Physician Pain Management 01/19/21 Artis Grewal MD [address] [place] [address] Consulting Physician Rheumatology 01/30/21 Amy Mayes NP [address] [address] Nurse Practitioner Cardiovascular Disease 04/20/24 Shailesh Dunn MD [address] [address] Consulting Physician Pulmonary Disease 04/20/24 Sangita Farrar PA [address] [place] [address] Physician Blue Leather Setter Rheumatology 05/15/24 documented as of this encounter
--- OUTSIDE RECORDS SUMMARY | 2024-08-29 23:11 | XMS_ITS | Encounter Summary ---
Author Organization [facility] Facility Care Team Providers Care Drill Press Operator Helper Name Role Phone Alee Elizondo Primary Care Provider + [phone] Sharan Linton MD Unavailable [phone] Taisha Gomez MD Unavailable +[phone] Parag Soto MD Unavailable [phone] RaziaMartha singh MD Unavailable +[phone] Puneet Uribe MD Unavailable +[phone] Shama Hines MD Unavailable Artis Grewal MD Unavailable [phone] Harrison Pena RN Unavailable +[phone] Nafisa Gregg RN Unavailable +[phone] Tho Kelsey MD Primary Care Provider +[phone] Alee Elizondo Primary Care Provider + [phone] Amy Mayes NP Unavailable +[phone] Shailesh Dunn MD Unavailable +[phone] Sangita Farrar Unavailable +[phone] Encounter Details Date Type Department Care Team (Latest Contact Info) Description 11/04/2015 Orders Only [facility] CLINCON[facility] Provider, MD Tania [address] [place] [address] Social History Tobacco Use Types Packs/Day Years Used Date Smoking Tobacco: Never Assessed Comments Unknown Sex and Gender Information Value Date Recorded Sex Assigned at Not on file Legal Sex Female 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 MAKER Gender Identity Female 02/15/2020 6:08 PM CDT [...] COVID: Suspected 08/13/2021 08/14/2021 08/14/2021 3:06 AM CLAY MAKER COVID: Suspected 08/14/2021 08/14/2021 08/15/2021 3:05 AM CLAY MAKER COVID: Suspected 08/14/2021 08/14/2021 08/15/2021 6:25 AM CLAY MAKER COVID: Suspected 06/02/2023 06/02/2023 06/02/2023 7:25 PM CLAY MAKER COVID: Suspected 07/26/2023 07/26/2023 07/26/2023 3:10 PM CLAY MAKER documented as of this encounter Care Teams Drill Press Operator Helper Relationship Specialty Start Date End Date Alee Elizondo PA [address] [facility] [address] [place] [address] PCP - General Internal Medicine 02/01/17 06/29/23 Tho Kelsey MD [address] [facility] [address] [place] [address] PCP - General Family Medicine 06/30/23 07/04/23 Alee Elizondo PA [address] [place] [address] PCP - General Internal Medicine 07/05/23 Sharan Linton MD [address] [place] [address] Referring Physician Gastroenterology 10/31/18 Taisha Gomez MD [address] [place] [address] Referring Physician Pulmonary Disease 10/31/18 12/23/20 Parag Soto MD [address] [place] [address] Referring Physician Rheumatology 10/31/18 12/23/20 Martha Starks MD [address] [place] [address] Consulting Physician Cardiology 12/24/20 Puneet Uribe MD [address] [facility] [address] [place] [address] Consulting Physician Rheumatology 12/24/20 01/29/21 Shama Hines MD 4700 [facility] 230 [place] [address] Consulting Physician Pain Management 01/19/21 Artis Grewal MD [address] [place] [address] Consulting Physician Rheumatology 01/30/21 Harrison Pena RN [address] [place] [address] Watcher Lookout Tower 05/30/23 09/04/23 Nafisa Gregg, JULIUS [address] [place] [address] [address] [place] [address] Watcher Lookout Tower 06/06/23 06/12/23 Amy Mayes NP [address] [address] Nurse Practitioner Cardiovascular Disease 04/20/24 Shailesh Dunn MD [address] [facility] [address] [place] [address] Consulting Physician Pulmonary Disease 04/20/24 Sangita Farrar PA [address] [place] [address] Physician [place] Rheumatology 05/15/24 documented as of this encounter
--- OUTSIDE RECORDS SUMMARY | 2024-08-29 23:11 | XMS_ITS | Encounter Summary ---
Author Organization [facility] Facility Care Team Providers Care Retail Sales Assistant Name Role Phone Alee Elizondo Primary Care Provider + [phone] Sharan Linton MD Unavailable [phone] Taisha Gomez MD Unavailable [phone] Parag Soto MD Unavailable [phone] RaziaMartha singh MD Unavailable +[phone] Puneet Uribe MD Unavailable +[phone] Shama Hines MD Unavailable Artis Grewal MD Unavailable [phone] Harrison Pena RN Unavailable +[phone] Nafisa Gregg RN Unavailable Tho Kelsey MD Primary Care Provider [phone] Alee Elizondo Primary Care Provider + [phone] Amy Mayes NP Unavailable +[phone] Shailesh Dunn MD Unavailable +[phone] Sangita Farrra Unavailable +[phone] Encounter Details Date Type Department Care Team (Latest Contact Info) Description 04/19/2016 Orders Only [facility] CLINCONV Provider, MD Tania [address] [place] [address] Social History Tobacco Use Types Packs/Day Years Used Date Smoking Tobacco: Never Alcohol Use Standard Drinks/Week Comments No 0 (1 standard drink = 0.6 oz pur e alcohol) Comments Unknown Sex and Gender Information Value Date Recorded Sex Assigned at Not on file Legal Sex Female 8:04 PM DRAFTING TECHNICIAN Gender Identity Female 02/15/2020 6:08 PM CDT [...] COVID: Suspected 08/13/2021 08/14/2021 08/14/2021 3:06 AM DRAFTING TECHNICIAN COVID: Suspected 08/14/2021 08/14/2021 08/15/2021 3:05 AM DRAFTING TECHNICIAN COVID: Suspected 08/14/2021 08/14/2021 08/15/2021 6:25 AM DRAFTING TECHNICIAN COVID: Suspected 06/02/2023 06/02/2023 06/02/2023 7:25 PM DRAFTING TECHNICIAN COVID: Suspected 07/26/2023 07/26/2023 07/26/2023 3:10 PM DRAFTING TECHNICIAN documented as of this encounter Care Teams Retail Sales Assistant Relationship Specialty Start Date End Date Alee Elizondo PA [address] [facility] [address] [place] [address] PCP - General Internal Medicine 02/01/17 06/29/23 Tho Kelsey MD [address] [facility] [address] [place] [address] PCP - General Family Medicine 06/30/23 07/04/23 Alee Elizondo PA [address] [place] [address] PCP - General Internal Medicine 07/05/23 Sharan Linton MD [address] [place] [address] Referring Physician Gastroenterology 10/31/18 Taisha Gomez MD [address] [place] [place], [place] [address] Referring Physician Pulmonary Disease 10/31/18 12/23/20 Parag Soto MD [address] [facility] [address] [place] [address] Referring Physician Rheumatology 10/31/18 12/23/20 Martha Starks MD [address] [facility] [address] [place] [address] Consulting Physician Cardiology 12/24/20 Puneet Uribe MD [address] [facility] 110 [place] [address] Consulting Physician Rheumatology 12/24/20 01/29/21 Shama Hines MD 4700 [facility] 230 [place] [address] Consulting Physician Pain Management 01/19/21 Artis Grewal MD [address] [place] [address] Consulting Physician Rheumatology 01/30/21 Harrison Pena, JULIUS [address] [place] [address] Digital Communications Manager 05/30/23 09/04/23 Nafisa Gregg, JULIUS [address] [place] [address] [address] [place] [address] Digital Communications Manager 06/06/23 06/12/23 Amy Mayes NP [address] [facility] [address] [facility] 102 [place] [address] Nurse Practitioner Cardiovascular Disease 04/20/24 Shailesh Dunn MD [address] [facility] [address] [place] [address] Consulting Physician Pulmonary Disease 04/20/24 Sangita Farrar PA [address] [place] [address] Physician Auto Garage Mechanic Rheumatology 05/15/24 documented as of this encounter
--- OUTSIDE RECORDS SUMMARY | 2024-08-29 23:11 | XMS_ITS | Encounter Summary ---
Author Organization [facility] Healthcare Address [address] [place] [address] Care Team Providers Care Instrument Installer Name Role Phone Sharan Linton MD Unavailable [phone] Martha Starks MD Unavailable [phone] Shama Hines MD Unavailable Artis Grewal MD Unavailable [phone] Alee Elizondo Primary Care Provider [phone] Amy Mayes NP Unavailable [phone] Shailesh Dunn MD Unavailable [phone] Sangita Farrar Unavailable +[phone] Encounter Details Date Type Department Care Team (Late st Contact Info) Description 10/03/2023 Orders Only [facility] Health Information Management [address] [place] [address] Scanning, Provider Social History Tobacco Use Types Packs/Day Years Used Date Smoking Tobacco: Never Smokeless Tobacco: Never Comments:Never used Alcohol Use Standard Drinks/Week Comments No 0 (1 standard drink = 0.6 oz pur e alcohol) [facility] Utilities Answer Date Recorded In the [...] often do you attend chur ch or quaker services? More than 4 times per year 05/27/2023 Do you belong to any clubs o r organizations such as yarsani groups, unions, fraternal or athletic groups, or [...] place to sleep or slept in a longterm (including now)? No 05/27/2023 Personal Safety Answer Date Recorded Have you ever been in or are you currently in a harmful physical or emotional relationship or is someone making you feel afraid or unsafe? Denies 06/02/2023 Comments No Sex and Gender Information Value Date Recorded Sex Assigned at Not on file Legal Sex Female 8:04 PM REAMING MACHINE TENDER Gender Identity Female 02/15/2020 6:08 PM [...] on filedocumented in this encounter Care Teams Instrument Installer Relationship Specialty Start Date End Date Alee Elizondo PA [address] [facility] 500 [place] [address] PCP - General Internal Medicine 07/05/23 Sharan Linton MD Referring Physician Gastroenterology 10/31/18 Martha Starks MD Consulting Physician Cardiology 12/24/20 Shama Hines MD [address] [facility] [address] [place] [address] Consulting Physician Pain Management 01/19/21 Artis Grewal MD [address] [place] [address] Consulting Physician Rheumatology 01/30/21 Amy Mayes NP [address] [address] Nurse Practitioner Cardiovascular Disease 04/20/24 Shailesh Dunn MD [address] [address] Consulting Physician Pulmonary Disease 04/20/24 Sangita Farrar PA [address] [place] [address] Physician Epilepsy Physician Rheumatology 05/15/24 documented as of this encounter
--- OUTSIDE RECORDS SUMMARY | 2024-08-29 23:11 | XMS_ITS | Encounter Summary ---
Author Organization [facility] Address [address] [place] [address] Phone Care Team Providers Care Manager Freelance Name Role Phone Sharan Linton MD Unavailable [phone] Martha Starks MD Unavailable [phone] Shama Hines MD Unavailable Artis Grewal MD Unavailable [phone] Alee Elizondo Primary Care Provider [phone] Amy Mayes NP Unavailable [phone] Shailesh Dunn MD Unavailable [phone] Sangita Farrar Unavailable [phone] Encounter Details Date Type Department Care Team (Late st Contact Info) Description 08/24/2024 Results Follow-Up [facility] [address] [place] [address] Sangita Farrar PA [address] [place] [address] Social History Tobacco Use Types Packs/Day Years Used Date Smoking Tobacco: Never Smokeless Tobacco: Never Comments:Never used Alcohol Use Standard Drinks/Week Comments No 0 (1 standard drink = 0.6 oz pur e alcohol) [facility] Utilities Answer Date Recorded In the [...] often do you attend chur ch or confucianist services? 1 to 4 times per year 05/30/2024 Do you belong to any clubs o r organizations such as evangelical groups, unions, fraternal or athletic groups, or [...] any time in the past 12 m [facility], were you homeless or living in a [...] on file Legal Sex Female 8:04 PM DIRECTOR OF EARLY CHILDHOOD EDUCATION Gender Identity Female 02/15/2020 6:08 PM CDT Sexual Orientation Not on file documented as of this encounter Plan of Treatment Not on file documented as of this encounter Visit Diagnoses Not on filedocumented in this encounter Care Teams Manager Freelance Relationship Specialty Start Date End Date Alee Elizondo PA [facility] 500 [place] [address] PCP - General Internal Medicine 07/05/23 Sharan Linton MD Referring Physician Gastroenterology 10/31/18 Martha Starks MD Consulting Physician Cardiology 12/24/20 Shama Hines MD [address] [facility] [address] [place] [address] Consulting Physician Pain Management 01/19/21 Artis Grewal MD [address] [place] [address] Consulting Physician Rheumatology 01/30/21 Amy Mayes NP [address] [facility] [address] [facility] 102 [place] [address] Nurse Practitioner Cardiovascular Disease 04/20/24 Shailesh Dunn MD [address] [facility] [address] [place] [address] Consulting Physician Pulmonary Disease 04/20/24 Sangita Farrar PA [address] [place] [address] Physician Cabin Agent Rheumatology 05/15/24 documented as of this encounter
--- OUTSIDE RECORDS SUMMARY | 2024-08-29 23:12 | XMS_ITS | Encounter Summary ---
Author Organization [facility] Healthcare Address [address] [place] [address] Care Team Providers Care Pets Salesperson Name Role Phone Sharan Linton MD Unavailable [phone] Martha Starks MD Unavailable [phone] Shama Hines MD Unavailable Artis Grewal MD Unavailable [phone] Alee Elizondo Primary Care Provider [phone] Amy Mayes NP Unavailable +[phone] Shailesh Dunn MD Unavailable [phone] Sangita Farrar Unavailable [phone] Encounter Details Date Type Department Care Team (Late st Contact Info) Description 03/02/2024 Telephone [facility] Family Medicine [address] [facility] [address] [place] [address] Alee Elizondo PA [address] [facility] [address] [place] [address] Social History Tobacco Use Types Packs/Day Years Used Date Smoking Tobacco: Never Smokeless Tobacco: Never Comments:Never used Alcohol Use Standard Drinks/Week Comments No 0 (1 standard drink = 0.6 oz pur e alcohol) [facility] Utilities Answer Date Recorded In the past 12 months has [employer], gas, oil, or water company threatened to [...] often do you attend chur ch or gnosticist services? More than 4 times per year 05/27/2023 Do you belong to any clubs o r organizations such as rastafari groups, unions, fraternal or athletic groups, or [...] place to sleep or slept in a mcfp (including now)? No 05/27/2023 Personal Safety Answer Date Recorded Have you ever been in or are you currently in a harmful physical or emotional relationship or is someone making you feel afraid or unsafe? Denies 06/02/2023 Comments No Sex and Gender Information Value Date Recorded Sex Assigned at Not on file Legal Sex Female 8:04 PM ELECTRICAL AUTOMATION ENGINEER Gender Identity Female 02/15/2020 6:08 PM CDT Sexual Orientation Not on file documented as of this encounter Plan of Treatment Not on file documented as of this encounter Visit Diagnoses Not on filedocumented in this encounter Care Teams Pets Salesperson Relationship Specialty Start Date End Date Alee Elizondo PA [address] [facility] 500 [place] [address] PCP - General Internal Medicine 07/05/23 Sharan Linton MD Referring Physician Gastroenterology 10/31/18 Martha Starks MD Consulting Physician Cardiology 12/24/20 Shama Hines MD [address] [facility] [address] [place] [address] Consulting Physician Pain Management 01/19/21 Artis Grewal MD [address] [place] [address] Consulting Physician Rheumatology 01/30/21 Amy Mayes NP [address] [facility] 102 [place] [address] Nurse Practitioner Cardiovascular Disease 04/20/24 Shailesh Dunn MD [address]00 [facility] 200 [place] [address] Consulting Physician Pulmonary Disease 04/20/24 Sangita Farrar PA [address] [place] [address] Physician Client Hr Manager Rheumatology 05/15/24 documented as of this encounter
--- OUTSIDE RECORDS SUMMARY | 2024-08-29 23:12 | XMS_ITS | Encounter Summary ---
Author Organization [facility] Facility Care Team Providers Care Architect Internship Name Role Phone Alee Elizondo Primary Care Provider + [phone] Sharan Lintno MD Unavailable [phone] Taisha Gomez MD Unavailable [phone] Parag Soto MD Unavailable [phone] RaziaMartha singh MD Unavailable [phone] Puneet Uribe MD Unavailable Shama Hines MD Unavailable Artis Grewal MD Unavailable [phone] Harrison Pena RN Unavailable +[phone] Nafisa Gregg RN Unavailable Tho Kelsey MD Primary Care Provider [phone] Alee Elizondo Primary Care Provider + [phone] Amy Mayes NP Unavailable +[phone] Shailesh Dunn MD Unavailable [phone] Sangita Farrar Unavailable [phone] Encounter Details Date Type Department Care Team (Latest Contact Info) Description 06/28/2016 Orders Only [facility] CLINCONV Provider, MD Tania [address] [place] [address] Social History Tobacco Use Types Packs/Day Years Used Date Smoking Tobacco: Never Alcohol Use Standard Drinks/Week Comments No 0 (1 standard drink = 0.6 oz pur e alcohol) Comments Unknown Sex and Gender Information Value Date Recorded Sex Assigned at Not on file Legal Sex Female 8:04 PM SENIOR INFORMATION SECURITY ENGINEER Gender Identity Female 02/15/2020 6:08 PM CDT Sexual Orientation Not on file documented as of this encounter Plan of Treatment Not on file documented as of this encounter Procedures Procedure Name Priority Date/Time Associated Diagnosis Comments SCAN - LABS 06/29/2016 12:00 AM SENIOR INFORMATION SECURITY ENGINEER documented in this encounter Results * SCAN - LABS (06/29/2016 12:00 AM SENIOR INFORMATION SECURITY ENGINEER) Narrative 06/29/2016 12:00 AM SENIOR INFORMATION SECURITY ENGINEER Ordered by an unspecified provider. us Historical Provider Final Res ult documented in this encounter Visit Diagnoses Not on filedocumented in this encounter Additional Health Concerns Infection Onset Date Last Indicated Resolved Time COVID: Suspected 08/13/2021 08/14/2021 08/14/2021 3:06 AM SENIOR INFORMATION SECURITY ENGINEER COVID: Suspected 08/14/2021 08/14/2021 08/15/2021 3:05 AM SENIOR INFORMATION SECURITY ENGINEER COVID: Suspected 08/14/2021 08/14/2021 08/15/2021 6:25 AM SENIOR INFORMATION SECURITY ENGINEER COVID: Suspected 06/02/2023 06/02/2023 06/02/2023 7:25 PM SENIOR INFORMATION SECURITY ENGINEER COVID: Suspected 07/26/2023 07/26/2023 07/26/2023 3:10 PM SENIOR INFORMATION SECURITY ENGINEER documented as of this encounter Care Teams Architect Internship Relationship Specialty Start Date End Date Alee Elizondo PA [address] [facility] 500 [place] [address] PCP - General Internal Medicine 02/01/17 06/29/23 Tho Kelsey MD 4600 [facility] 400 [place] [address] PCP - General Family Medicine 06/30/23 07/04/23 Alee Elizondo PA [address] [place] [address] [place] [address] PCP - General Internal Medicine 07/05/23 Sharan Linton MD [address] [place] [address] [place] [address] Referring Physician Gastroenterology 10/31/18 Taisha Gomez MD [address] [place] [address] [place], [place] [address] Referring Physician Pulmonary Disease 10/31/18 12/23/20 Parag Soto MD [address] [place] [place] [address] Referring Physician Rheumatology 10/31/18 12/23/20 Martha Starks MD [address] [place] [address] [place] [address] Consulting Physician Cardiology 12/24/20 Puneet Uribe MD [address] [facility] 110 [place] [address] Consulting Physician Rheumatology 12/24/20 01/29/21 Shama Hines MD 4700 [facility] 230 [place] [address] Consulting Physician Pain Management 01/19/21 Artis Grewal MD [address] [place] [address] Consulting Physician Rheumatology 01/30/21 Harrison Pena, JULIUS [address] [place] [address] Patient Access Specialist 05/30/23 09/04/23 Nfaisa Gregg, RN [address] [place] [address] [address] [place] [address] Patient Access Specialist 06/06/23 06/12/23 Amy Mayes NP [address] [facility] [address] [facility] 102 [place] [address] Nurse Practitioner Cardiovascular Disease 04/20/24 Shailesh Dunn MD [address] [facility] [address] [place] [address] Consulting Physician Pulmonary Disease 04/20/24 Sangita Farrar PA [address] [place] [address] Physician Heel Top Lift Splitter Rheumatology 05/15/24 documented as of this encounter
--- OUTSIDE RECORDS SUMMARY | 2024-08-29 23:12 | XMS_ITS | Encounter Summary ---
Author Organization [facility] Facility Care Team Providers Care Trim And Burr Operator Name Role Phone Alee Elizondo Primary Care Provider + [phone] Sharan Linton MD Unavailable [phone] Taisha Gomez MD Unavailable [phone] Parag Soto MD Unavailable [phone] RaziaMartha singh MD Unavailable [phone] Puneet Uribe MD Unavailable +[phone] Shama Hines MD Unavailable Artis Grewal MD Unavailable [phone] Harrison Pena RN Unavailable +[phone] Nafisa Gregg RN Unavailable +[phone] Tho Kelsey MD Primary Care Provider +[phone] Alee Elizondo Primary Care Provider + [phone] Amy Mayes NP Unavailable +[phone] Shailesh Dunn MD Unavailable [phone] Sangita Farrar Unavailable [phone] Encounter Details Date Type Department Care Team (Latest Contact Info) Description 10/15/2016 Orders Only [facility]IN[facility] Provider, MD Tania [address] [place] [address] Social History Tobacco Use Types Packs/Day Years Used Date Smoking Tobacco: Never Alcohol Use Standard Drinks/Week Comments No 0 (1 standard drink = 0.6 oz pur e alcohol) Comments Unknown Sex and Gender Information Value Date Recorded Sex Assigned at Not on file Legal Sex Female 8:04 PM CASING BLOWER Gender Identity Female 02/15/2020 6:08 PM CDT [...] COVID: Suspected 08/13/2021 08/14/2021 08/14/2021 3:06 AM CASING BLOWER COVID: Suspected 08/14/2021 08/14/2021 08/15/2021 3:05 AM CASING BLOWER COVID: Suspected 08/14/2021 08/14/2021 08/15/2021 6:25 AM CASING BLOWER COVID: Suspected 06/02/2023 06/02/2023 06/02/2023 7:25 PM CASING BLOWER COVID: Suspected 07/26/2023 07/26/2023 07/26/2023 3:10 PM CASING BLOWER documented as of this encounter Care Teams Trim And Burr Operator Relationship Specialty Start Date End Date Alee Elizondo PA [address] [facility] [address] [place] [address] PCP - General Internal Medicine 02/01/17 06/29/23 Tho Kelsey MD [address] [facility] [address] [place] [address] PCP - General Family Medicine 06/30/23 07/04/23 Alee Elizondo PA [address] [place] [place] [address] PCP - General Internal Medicine 07/05/23 Sharan Linton MD [address] [place] [place] [address] Referring Physician Gastroenterology 10/31/18 Taisha Gomez MD [address] [place] [place], [place] [address] Referring Physician Pulmonary Disease 10/31/18 12/23/20 Parag Soto MD [address] [facility] [address] [place] [address] Referring Physician Rheumatology 10/31/18 12/23/20 Martha Starks MD [address] [facility] [address] [place] [address] Consulting Physician Cardiology 12/24/20 Puneet Uribe MD [address] [facility] 110 [place] [address] Consulting Physician Rheumatology 12/24/20 01/29/21 Shama Hines MD 4700 [facility] 230 [place] [address] Consulting Physician Pain Management 01/19/21 Artis Grewal MD [address] [place] [address] Consulting Physician Rheumatology 01/30/21 Harrison Pena, JULIUS [address] [place] [address] Alarm Signal Operator 05/30/23 09/04/23 Nafisa Gregg, JULIUS [address] [place] [address] [address] [place] [address] Alarm Signal Operator 06/06/23 06/12/23 Amy Mayes NP [address] [facility] [address] [facility] 102 [place] [address] Nurse Practitioner Cardiovascular Disease 04/20/24 Shailesh Dunn MD [address] [facility] [address] [place] [address] Consulting Physician Pulmonary Disease 04/20/24 Sangita Farrar PA [address] [place] [address] Physician Child Care Education Coordinator Rheumatology 05/15/24 documented as of this encounter
--- OUTSIDE RECORDS SUMMARY | 2024-08-29 23:12 | XMS_ITS | Encounter Summary ---
Author Organization [facility] Facility Care Team Providers Care Topographical Drafter Name Role Phone Alee Elizondo Primary Care Provider + [phone] Sharan Linton MD Unavailable Taisha Gomez MD Unavailable +[phone] Parag Soto MD Unavailable [phone] RaziaMartha singh MD Unavailable [phone] Puneet Uribe MD Unavailable +[phone] Shama Hines MD Unavailable Artis Grewal MD Unavailable [phone] Harrison Pena RN Unavailable +[phone] Nafisa Gregg RN Unavailable +[phone] Tho Kelsey MD Primary Care Provider [phone] Alee Elizondo Primary Care Provider + [phone] Amy Mayes NP Unavailable +[phone] Shailesh Dunn MD Unavailable [phone] Sangita Farrar Unavailable +[phone] Encounter Details Date Type Department Care Team (Latest Contact Info) Description 08/10/2017 Orders Only [facility] CLINCONV Provider, MD Tania [address] [place] [address] Social History Tobacco Use Types Packs/Day Years Used Date Smoking Tobacco: Never Smokeless Tobacco: Never Alcohol Use Standard Drinks/Week Comments No 0 (1 standard drink = 0.6 oz pur e alcohol) Comments Unknown Sex and Gender Information Value Date Recorded Sex Assigned at Not on file Legal Sex Female 8:04 PM VINYL DIPPER Gender Identity Female 02/15/2020 6:08 PM CDT Sexual Orientation Not on file documented as of this encounter Plan of Treatment Not on file documented as of this encounter Procedures Procedure Name Priority Date/Time Associated Diagnosis Comments CARDIOLOGY REPORT 08/10/2017 12: 00 AM VINYL DIPPER documented in this encounter Results * CARDIOLOGY REPORT (08/10/2017 12:00 AM VINYL DIPPER) Anatomical Region Laterality Modality Other Narrative 08/10/2017 12:00 AM VINYL DIPPER Ordered by an unspecified provider. us Historical Provider [facility] LEANDRA LANDRUM Final Result documented in this encounter Visit Diagnoses Not on filedocumented in this encounter Additional Health Concerns Infection Onset Date Last Indicated Resolved Time COVID: Suspected 08/13/2021 08/14/2021 08/14/2021 3:06 AM VINYL DIPPER COVID: Suspected 08/14/2021 08/14/2021 08/15/2021 3:05 AM VINYL DIPPER COVID: Suspected 08/14/2021 08/14/2021 08/15/2021 6:25 AM VINYL DIPPER COVID: Suspected 06/02/2023 06/02/2023 06/02/2023 7:25 PM VINYL DIPPER COVID: Suspected 07/26/2023 07/26/2023 07/26/2023 3:10 PM VINYL DIPPER documented as of this encounter Care Teams Topographical Drafter Relationship Specialty Start Date End Date Alee Elizondo PA [address] [facility] [address] [place] [address] PCP - General Internal Medicine 02/01/17 06/29/23 Tho Kelsey MD [address] [facility] [address] [place] [address] PCP - General Family Medicine 06/30/23 07/04/23 Alee Elizondo PA [address] [place] [address] PCP - General Internal Medicine 07/05/23 Sharan Linton MD [address] [place] [address] Referring Physician Gastroenterology 10/31/18 Taisha Gomez MD [address] [place], [place] [id number] Referring Physician Pulmonary Disease 10/31/18 12/23/20 Parag Soto MD [address] [place] [address] Referring Physician Rheumatology 10/31/18 12/23/20 Martha Starks MD [address] [place] [address] Consulting Physician Cardiology 12/24/20 Puneet Uribe MD [address] [facility] [address] [place] [address] Consulting Physician Rheumatology 12/24/20 01/29/21 Shama Hines MD [address] [facility] [address] [place] [address] Consulting Physician Pain Management 01/19/21 Artis Grewal MD [address] [place] [address] Consulting Physician Rheumatology 01/30/21 Harrison Pena, JULIUS [address] [place] [address] Batch Operator 05/30/23 09/04/23 Nafisa Gregg, JULIUS [address] [place] [address] [facility] [address] [place] [address] Batch Operator 06/06/23 06/12/23 Amy Mayes, LELAND [address] [facility] [address] [facility] 102 [place] [address] Nurse Practitioner Cardiovascular Disease 04/20/24 Shailesh Dunn MD [address] [facility] [address] [address] Consulting Physician Pulmonary Disease 04/20/24 Sangita Farrar PA [address] [place] [address] Physician Face Cleaner Rheumatology 05/15/24 documented as of this encounter
--- OUTSIDE RECORDS SUMMARY | 2024-08-29 23:12 | XMS_ITS | Encounter Summary ---
Author Organization [facility] Facility Care Team Providers Care Machine Shop Instructor Name Role Phone Alee Elizondo Primary Care Provider + [phone] Sharan Linton MD Unavailable [phone] Taisha Gomez MD Unavailable [phone] Parag Soto MD Unavailable [phone] RaziaMartha singh MD Unavailable [phone] Puneet Uribe MD Unavailable +[phone] Shama Hines MD Unavailable Artis Grewal MD Unavailable [phone] Harrison Pena RN Unavailable +[phone] Nafisa Gregg RN Unavailable +[phone] Tho Kelsey MD Primary Care Provider [phone] Alee Elizondo Primary Care Provider + [phone] Amy Mayes NP Unavailable +[phone] Shailesh Dunn MD Unavailable [phone] Sangita Farrar Unavailable [phone] Encounter Details Date Type Department Care Team (Latest Contact Info) Description 01/08/2017 Orders Only [facility] CLINCONV Provider, MD Tania [address] [place] [address] Social History Tobacco Use Types Packs/Day Years Used Date Smoking Tobacco: Never Alcohol Use Standard Drinks/Week Comments No 0 (1 standard drink = 0.6 oz pur e alcohol) Comments Unknown Sex and Gender Information Value Date Recorded Sex Assigned at Not on file Legal Sex Female 8:04 PM PREFORM PLATE MAKER Gender Identity Female 02/15/2020 6:08 PM [...] COVID: Suspected 08/13/2021 08/14/2021 08/14/2021 3:06 AM PREFORM PLATE MAKER COVID: Suspected 08/14/2021 08/14/2021 08/15/2021 3:05 AM PREFORM PLATE MAKER COVID: Suspected 08/14/2021 08/14/2021 08/15/2021 6:25 AM PREFORM PLATE MAKER COVID: Suspected 06/02/2023 06/02/2023 06/02/2023 7:25 PM PREFORM PLATE MAKER COVID: Suspected 07/26/2023 07/26/2023 07/26/2023 3:10 PM PREFORM PLATE MAKER documented as of this encounter Care Teams Machine Shop Instructor Relationship Specialty Start Date End Date Alee Elizondo PA [address] [facility] [address] [place] [address] PCP - General Internal Medicine 02/01/17 06/29/23 Tho Kelsey MD [address] [facility] [address] [place] [address] PCP - General Family Medicine 06/30/23 07/04/23 Alee Elizondo PA [address] [place] [address] PCP - General Internal Medicine 07/05/23 Sharan Linton MD [address] [place] [address] Referring Physician Gastroenterology 10/31/18 Taisha Gomez MD [address] [place], [place] [id number] Referring Physician Pulmonary Disease 10/31/18 12/23/20 Parag Soto MD [address] [facility] [address] [place] [address] Referring Physician Rheumatology 10/31/18 12/23/20 Martha Starks MD [address] [facility] [address] [place] [address] Consulting Physician Cardiology 12/24/20 Puneet Uribe MD [address] [place] [address] [place] [address] Consulting Physician Rheumatology 12/24/20 01/29/21 Shama Hines MD [address] [facility] [address] [place] [address] Consulting Physician Pain Management 01/19/21 Artis Grewal MD [address] [place] [address] Consulting Physician Rheumatology 01/30/21 Harrison Pena, JULIUS [address] [place] [address] Extrusion Line Operator 05/30/23 09/04/23 Nafisa Gregg, JULIUS [address] [place] [address] [address] [place] [address] Extrusion Line Operator 06/06/23 06/12/23 Amy Mayes NP [address] [facility] [address] [place] [address] Nurse Practitioner Cardiovascular Disease 04/20/24 Shailesh Dunn MD [address] [facility] [address] [place] [address] Consulting Physician Pulmonary Disease 04/20/24 Sangita Farrar PA [address] [place] [address] Physician Regeneration Operator Rheumatology 05/15/24 documented as of this encounter
--- OUTSIDE RECORDS SUMMARY | 2024-08-29 23:12 | XMS_ITS | Encounter Summary ---
Author Organization [facility] Facility Care Team Providers Care Environmental Aide Name Role Phone Alee Elizondo Primary Care Provider + [phone] Sharan Linton MD Unavailable [phone] Taisha Gomez MD Unavailable [phone] Parag Soto MD Unavailable [phone] [facility] MD Unavailable [phone] Puneet Uribe MD Unavailable +[phone] Shama Hines MD Unavailable Artis Grewal MD Unavailable [phone] Harrison Pena RN Unavailable +[phone] Nafisa Gregg RN Unavailable [phone] Tho Kelsey MD Primary Care Provider [phone] Alee Elizondo Primary Care Provider + [phone] Amy Mayes NP Unavailable +[phone] Shailesh Dunn MD Unavailable +[phone] Sangita Farrar Unavailable [phone] Encounter Details Date Type Department Care Team (Latest Contact Info) Description 09/14/2016 Orders Only [facility] CLINCONV Provider, MD Tania [address] [place] [address] Social History Tobacco Use Types Packs/Day Years Used Date Smoking Tobacco: Never Alcohol Use Standard Drinks/Week Comments No 0 (1 standard drink = 0.6 oz pur e alcohol) Comments Unknown Sex and Gender Information Value Date Recorded Sex Assigned at Not on file Legal Sex Female 8:04 PM RASCHEL KNITTING MACHINE OPERATOR Gender Identity Female 02/15/2020 6:08 PM CDT Sexual Orientation Not on file documented as of this encounter Plan of Treatment Not on file documented as of this encounter Procedures Procedure Name Priority Date/Time Associated Diagnosis Comments PROCEDURE - RESULT 09/09/2016 12 :00 AM RASCHEL KNITTING MACHINE OPERATOR documented in this encounter Results * PROCEDURE - RESULT (09/09/2016 12:00 AM RASCHEL KNITTING MACHINE OPERATOR) Narrative 09/09/2016 12:00 AM RASCHEL KNITTING MACHINE OPERATOR Ordered by an unspecified provider. Historical Provider Final Res ult documented in this encounter Visit Diagnoses Not on filedocumented in this encounter Additional Health Concerns Infection Onset Date Last Indicated Resolved Time COVID: Suspected 08/13/2021 08/14/2021 08/14/2021 3:06 AM RASCHEL KNITTING MACHINE OPERATOR COVID: Suspected 08/14/2021 08/14/2021 08/15/2021 3:05 AM RASCHEL KNITTING MACHINE OPERATOR COVID: Suspected 08/14/2021 08/14/2021 08/15/2021 6:25 AM RASCHEL KNITTING MACHINE OPERATOR COVID: Suspected 06/02/2023 06/02/2023 06/02/2023 7:25 PM RASCHEL KNITTING MACHINE OPERATOR COVID: Suspected 07/26/2023 07/26/2023 07/26/2023 3:10 PM RASCHEL KNITTING MACHINE OPERATOR documented as of this encounter Care Teams Environmental Aide Relationship Specialty Start Date End Date Alee Elizondo PA [address] [facility] 500 [place] [address] PCP - General Internal Medicine 02/01/17 06/29/23 Tho Kelsey MD [address] [facility] 400 [place] [address] PCP - General Family Medicine 06/30/23 07/04/23 Alee Elizondo PA [address] [place] [address] PCP - General Internal Medicine 07/05/23 Sharan Linton MD [address] [place] [address] Referring Physician Gastroenterology 10/31/18 Taisha Gomez MD [address] [place], [place] [id number] Referring Physician Pulmonary Disease 10/31/18 12/23/20 Parag Soto MD [address] [place] [address] Referring Physician Rheumatology 10/31/18 12/23/20 Martha Starks MD [address] [place] [address] Consulting Physician Cardiology 12/24/20 Puneet Uribe MD [address] [facility] [address] [place] [address] Consulting Physician Rheumatology 12/24/20 01/29/21 Shama Hines MD [address] [facility] [address] [place] [address] Consulting Physician Pain Management 01/19/21 Artis Grewal MD [address] [place] [address] Consulting Physician Rheumatology 01/30/21 Harrison Pena, JULIUS [address] [place] [address] Safety Administrator 05/30/23 09/04/23 Nafisa Gregg, RN [address] [place] [address] [address] [place] [address] Safety Administrator 06/06/23 06/12/23 Amy Mayes NP [address] [facility] [address] [facility] 102 [place] [address] Nurse Practitioner Cardiovascular Disease 04/20/24 Shailesh Dunn MD [address] [facility] [address] [place] [address] Consulting Physician Pulmonary Disease 04/20/24 Sangita Farrar PA [address] [place] [address] Physician Mitering 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 Rheumatology 05/15/24 documented as of this encounter
--- OUTSIDE RECORDS SUMMARY | 2024-08-29 23:12 | XMS_ITS | Referral Summary ---
Author Organization [facility] [address] Address [address] [place] [address] Care Team Providers Care Loan Approver Name Role Phone Sharan Linton MD Unavailable [phone] Martha Starks MD Unavailable [phone] Shama Hines MD Unavailable Artis Grewal MD Unavailable [phone] Alee Elizondo Primary Care Provider [phone] Amy Mayes NP Unavailable [phone] Shailesh Dunn MD Unavailable [phone] Sangita Farrar Unavailable Encounters Date Type Department Care Team Description 08/29/2024 Nurse Triage [facility] Family Medicine [address] [place] [address] Alee Elizondo PA 08/29/2024 Telephone [facility] Pul[facility] [address] [place] [address] Shailesh Dunn MD Med Refill (Ropinirol HCL 0.5MG tab) 08/24/2024 Results Follow-Up [address] [phone] Sangita Farrar PA 08/23/[address] [phone] Sangita Farrar PA Orencia Approved 08/23/2024 11:30 AM E BUSINESS PROJECT MANAGER Office Visit [address] [phone] Sangita Farrar PA Seropositive rheumatoid arthritis of multiple sites ([facility]) (HCC) (Primary Dx); Primary osteoarthritis involving multiple joints; Encounter for medication monitoring 08/21/[address] [phone] Codi Branham 08/02/2024 Telephone [facility] Pulmonary [address] [place] [address] Shailesh Dunn MD Orders Only 08/02/2024 11:45 AM E BUSINESS PROJECT MANAGER Office Visit [facility] Pulmonary [address] [place] [address] Magaly Snider NP OWEN on CPAP (Primary Dx); OWEN (obstructive sleep apnea); PLMD (periodic limb movement disorder) 08/01/2024 Orders Only [facility] Family Medicine [address] [facility] [address] [place] [address] Alee Elizondo PA Pre-diabetes (Primary Dx); Mixed hyperlipidemia; Fatigue, unspecified type 07/30/2024 9:00 AM E BUSINESS PROJECT MANAGER Office Visit [facility] [address] [place] [phone] Sangita Farrar PA Seropositive rheumatoid arthritis of multiple sites ([facility]) (HCC) (Primary Dx); Primary osteoarthritis involving multiple joints; Encounter for medication monitoring 07/24/2024 1:27 PM E BUSINESS PROJECT MANAGER - 07/24/2024 11:59 PM E BUSINESS PROJECT MANAGER Hospital Encounter [facility] [address] [place] [address] Status post total knee replacement using cement, right Discharge Disposition: Discharge to home or self care 07/24/[address] [place] [phone] Alee Elizondo PA Referral Request (/) 07/24/2024 2:00 PM E BUSINESS PROJECT MANAGER Office Visit [facility] Medicine [address] [place] [phone] Michael Motta MD Status post total knee replacement using cement, right (Primary Dx) 07/12/2024 Telephone [facility] [address] [place] [address] [place] [phone] Michael Motta MD ret call 07/03/[address] [place] [phone] Alee Elizondo PA Symptom Based Call 06/28/[address] [place] [phone] Alee Elizondo PA Forms Request 06/26/2024 Telephone [facility] [address] [place] [phone] Michel Rae PA Scheduling Appointments 06/25/2024 Telephone [facility] [address] [place] [phone] Michael Motta MD Post-op Problem 06/22/[address] [place] [phone] Alee Elizondo PA 06/21/2024 9:15 AM E BUSINESS PROJECT MANAGER Office Visit [facility] [address] [place] [phone] Michel Rae PA Status post total knee replacement using cement, right (Primary Dx); Primary osteoarthritis of right knee; Orthopedic aftercare; Right knee pain, unspecified chronicity 06/14/2024 9:00 AM E BUSINESS PROJECT MANAGER Office Visit [facility] [address] [place] [address] [address] [place] [address] Michel Rae PA Status post total knee replacement using cement, right (Primary Dx); Orthopedic aftercare; Right knee pain, unspecified chronicity; Primary osteoarthritis of right knee 06/12/2024 Telephone [facility] [address] [place] [address] [address] [place] [address] Michael Motta MD 06/07/2024 Telephone [facility] Family Medicine [address] [place] [address] Alee Elizondo PA Referral Request 05/30/2024 5:23 AM E BUSINESS PROJECT MANAGER - 06/05/2024 2:12 PM E BUSINESS PROJECT MANAGER Hospital Encounter [address] [address] Michael Motta MD Primary osteoarthritis of right knee (Primary Dx); Primary osteoarthritis of other site Discharge Disposition: Discharge to home, home health skilled care 05/30/2024 7:20 AM E BUSINESS PROJECT MANAGER Ancillary Procedure [facility] OR [address] [place] [address] 05/30/2024 7:15 AM E BUSINESS PROJECT MANAGER Ancillary Procedure [facility] OR [address] [place] [address] 05/30/2024 7:30 AM E BUSINESS PROJECT MANAGER - 05/30/2024 10:15 AM E BUSINESS PROJECT MANAGER Surgery [facility] OR [address] [place] [phone] Michael Motta MD RIGHT TOTAL KNEE ARTHROPLASTY 05/30/2024 7:34 AM E BUSINESS PROJECT MANAGER Anesthesia Event [address] [address] Karen Olmstead MD Boivin, James R., MD [...] 05/07/20 Assessment & Plan (05/07/2024 8:57 PM E BUSINESS PROJECT MANAGER): I have examined this patient and ordered [...] She has had evaluation by Urology at [facility] and has been told there is [...] 08/03/2023 Assessment & Plan (05/07/2024 8:56 PM E BUSINESS PROJECT MANAGER): Discussed the patient's BMI. The BMI is [...] provided. Assessment & Plan (09/06/2023 9:38 AM E BUSINESS PROJECT MANAGER): Discussed the patient's BMI. The BMI is above average. BMI management plan is completed. BMI Follow-up includes: nutrition counseling, exercise counseling and education provided. Patient has an obesity-related condition (not limited to: hypertension, obstructive sleep apnea, osteoarthritis, hyperlipidemia, diabetes, etc.). Therefore, morbid obesity may be documented for patients with a BMI between 35.00-39.99. Assessment & Plan (08/07/2023 7:51 PM E BUSINESS PROJECT MANAGER): Discussed the patient's BMI. The BMI is above average. BMI management plan is completed. BMI Follow-up includes: nutrition counseling, exercise counseling and education provided. Patient has an obesity-related condition (not limited to: hypertension, obstructive sleep apnea, osteoarthritis, hyperlipidemia, diabetes, etc.). Therefore, morbid obesity may be documented for patients with a BMI between 35.00-39.99. Assessment & Plan (08/03/2023 7:45 AM E BUSINESS PROJECT MANAGER): Discussed the patient's BMI. The BMI is above average. BMI management plan is completed. BMI Follow-up includes: nutrition counseling, exercise counseling and education provided. Primary osteoarthritis of right knee 07/08/2023 Assessment & Plan (05/07/2024 8:56 PM E BUSINESS PROJECT MANAGER): Patient has arthritis in the right knee. Planning a total knee replacement with Dr. Alexus Motta on May 30 Assessment & Plan (08/03/2023 8:28 AM E BUSINESS PROJECT MANAGER): Continue per ortho. She is seeing some improvement but it is difficult to know if the knee is rheumatoid versus osteo versus other etiology. Will await recommendations from JACQUI Raya but definitely encouraged her to become active as soon as possible. Status post total knee replacement using cement, right 05/19/2023 Assessment & Plan (06/02/2023 4:56 PM E BUSINESS PROJECT MANAGER): Status post total knee replacement with Dr. Ge Sexton 04 May. She has just been released from rehab following up for her TCM visit. She appears to have an area of cellulitis at the incision site. She is also complaining of increased pain. Will check CBC CMP and inflammatory markers along with an x-ray. She plans to go to [facility] for the workup. Will follow up with [...] provided. Assessment & Plan (06/02/2023 8:27 AM E BUSINESS PROJECT MANAGER): Discussed the patients BMI: The BMI is [...] 12/20/2022 Assessment & Plan (05/07/2024 8:55 PM E BUSINESS PROJECT MANAGER): Patient is on medication for her rheumatoid arthritis managed by [facility] Assessment & Plan (01/22/2024 8:13 PM CDT): Medications from [facility] contribute to her immunosuppressive state. Assessment & Plan (09/06/2023 9:41 AM E BUSINESS PROJECT MANAGER): Medications are managed by [facility] for her rheumatoid arthritis Assessment & Plan (04/06/2023 7:44 PM CDT): Managed by [facility]. Currently on Plaquenil methotrexate Orencia folic [...] She has had evaluation by Urology at [facility] and has been told there is [...] capacity. Assessment & Plan (09/06/2023 9:41 AM E BUSINESS PROJECT MANAGER): Continue per . She did not tolerate [...] Pate. Assessment & Plan (07/18/2022 10:20 AM E BUSINESS PROJECT MANAGER): CT revealed pelvic lipomatosis that is compressing [...] 02/11/2022 Assessment & Plan (09/06/2023 9:41 AM E BUSINESS PROJECT MANAGER): No change. Dysfunction of both eustachian tubes 02/11/2022 Myalgia, lower leg 01/11/2022 PLMD (periodic limb movement disorder) Assessment & Plan (08/02/2024 11:49 AM E BUSINESS PROJECT MANAGER): Asymptomatic Assessment & Plan (06/22/2022 10:31 AM E BUSINESS PROJECT MANAGER): Will continue Requip 1 mg nightly Assessment [...] bedtime. Assessment & Plan (07/13/2021 11:25 AM E BUSINESS PROJECT MANAGER): Due to the patient stating that she [...] 06/04/2020 Assessment & Plan (08/23/2024 10:16 AM E BUSINESS PROJECT MANAGER): Hepatitis negative 06/2020 Tspot negative 06/2020 Continue routine lab monitoring Maintain routine eye exams throughout the duration of taking hydroxychloroquine Assessment & Plan (07/30/2024 8:24 AM E BUSINESS PROJECT MANAGER): Hepatitis negative 06/2020 Tspot negative 06/2020 Continue [...] hydroxychloroquine Assessment & Plan (09/01/2023 8:34 AM E BUSINESS PROJECT MANAGER): Hepatitis negative 06/2020 Tspot negative 06/2020 Continue routine lab monitoring Maintain routine eye exams throughout the duration of taking hydroxychloroquine Assessment & Plan (06/29/2023 2:19 PM E BUSINESS PROJECT MANAGER): Hepatitis negative 06/2020 Tspot negative 06/2020 Continue [...] hydroxychloroquine Assessment & Plan (07/14/2022 2:58 PM E BUSINESS PROJECT MANAGER): Hepatitis negative 06/2020 Tspot negative 06/2020 Continue routine lab monitoring Maintain routine eye exams throughout the duration of taking hydroxychloroquine Assessment & Plan (06/03/2022 9:58 AM E BUSINESS PROJECT MANAGER): Hepatitis negative 06/2020 Tspot negative 06/2020 Continue [...] hydroxychloroquine Assessment & Plan (09/03/2021 8:29 AM E BUSINESS PROJECT MANAGER): Hepatitis negative 06/2020 Tspot negative 06/2020 Continue routine lab monitoring Maintain routine eye exams throughout the duration of taking hydroxychloroquine Assessment & Plan (06/03/2021 4:17 PM E BUSINESS PROJECT MANAGER): Hepatitis negative 06/2020 Tspot negative 06/2020 Continue [...] hydroxychloroquine Assessment & Plan (09/02/2020 1:16 PM E BUSINESS PROJECT MANAGER): Hepatitis negative 06/2020 Tspot negative 06/2020 Continue routine lab monitoring Maintain routine eye exams throughout the duration of taking hydroxychloroquine Assessment & Plan (07/09/2020 12:23 PM E BUSINESS PROJECT MANAGER): Hepatitis negative 06/2020 Tspot negative 06/2020 Continue routine lab monitoring Maintain routine eye exams throughout the duration of taking hydroxychloroquine Drug-induced constipation 08/13/2019 Assessment & Plan (05/07/2024 8:54 PM E BUSINESS PROJECT MANAGER): Patient with chronic constipation. Has been on [...] linzess Assessment & Plan (08/13/2019 8:57 AM E BUSINESS PROJECT MANAGER): On Movantik with Dr. Soto Herpes zoster without complication 12/13/2018 Assessment & Plan (12/23/2018 10:18 PM CDT): Valtex to pharmacy. She has had shingles in the past. Pre-diabetes 10/31/2018 Assessment & Plan (05/07/2024 8:55 PM E BUSINESS PROJECT MANAGER): Pre-diabetes/hyperglycemia is a precursor to Dm. Stressed [...] diabetes. Assessment & Plan (09/06/2023 9:40 AM E BUSINESS PROJECT MANAGER): Pre-diabetes/hyperglycemia is a precursor to Dm. Stressed [...] diabetes. Assessment & Plan (09/11/2021 11:22 PM E BUSINESS PROJECT MANAGER): Pre-diabetes/hyperglycemia is a precursor to Dm. Stressed importance of working on diet (decrease your simple sugars and one carbohydrate with each meal) and increase you exercise to achieve weight loss and this will help prevent you from progressing to diabetes. Assessment & Plan (05/29/2021 8:18 PM E BUSINESS PROJECT MANAGER): Pre-diabetes/hyperglycemia is a precursor to Dm. Stressed [...] diabetes. Assessment & Plan (08/31/2020 9:34 AM E BUSINESS PROJECT MANAGER): Pre-diabetes is a precursor to Dm. Stressed [...] diabetes. Assessment & Plan (08/13/2019 9:00 AM E BUSINESS PROJECT MANAGER): This is a significant, separately identifiable problem [...] 10/31/2018 Assessment & Plan (05/07/2024 8:54 PM E BUSINESS PROJECT MANAGER): Depression symptoms are stable with Wellbutrin XL 150 Cymbalta 60 b.i.d. Assessment & Plan (04/21/2024 8:50 PM CDT): Depression symptoms are stable with the Wellbutrin XL 150 and Cymbalta 60 b.i.d. Assessment & Plan (01/22/2024 8:11 PM CDT): Depression symptoms are stable with Wellbutrin and Cymbalta Assessment & Plan (09/06/2023 9:40 AM E BUSINESS PROJECT MANAGER): Depression is stable with Wellbutrin and Cymbalta Assessment & Plan (08/03/2023 8:31 AM E BUSINESS PROJECT MANAGER): Stable with Cymbalta 60 and Wellbutrin XL [...] Cymbalta Assessment & Plan (09/11/2021 11:26 PM E BUSINESS PROJECT MANAGER): Continue Wellbutrin and Cymbalta Assessment & Plan (05/29/2021 8:22 PM E BUSINESS PROJECT MANAGER): Continue Wellbutrin and Cymbalta Assessment & Plan (05/24/2021 10:39 AM E BUSINESS PROJECT MANAGER): Continue Wellbutrin and Cymbalta Assessment & Plan (12/24/2020 9:07 AM CDT): Continue wellbutrin and cymbalta Assessment & Plan (08/31/2020 9:35 AM E BUSINESS PROJECT MANAGER): Continue wellbutrin and cymbalta Assessment & Plan (02/18/2020 9:47 PM CDT): Stable with the Cymbalata Assessment & Plan (08/13/2019 8:59 AM E BUSINESS PROJECT MANAGER): Stable with Cymbalta and Wellbutrin Assessment & [...] regimen. Med list updated to reflect the [id number] one daily and Prozac 40mg. Mixed hyperlipidemia 03/29/2018 Assessment & Plan (05/07/2024 8:54 PM E BUSINESS PROJECT MANAGER): Encouraged patient to follow low fat/low chol [...] statin Assessment & Plan (09/06/2023 9:42 AM E BUSINESS PROJECT MANAGER): Encouraged patient to follow low fat/low chol [...] statin Assessment & Plan (09/11/2021 11:26 PM E BUSINESS PROJECT MANAGER): Encouraged patient to follow low fat/low chol diet like the Mediterranean diet. Increase good fats in the diet. Increase exercise. Monitor labs as needed. Continue statin Assessment & Plan (05/29/2021 8:22 PM E BUSINESS PROJECT MANAGER): Encouraged patient to follow fat/low chol diet like the Mediterranean diet. Increase good fats in the diet. Increase exercise. Monitor labs as needed. Continue statin Assessment & Plan (05/24/2021 10:39 AM E BUSINESS PROJECT MANAGER): Encouraged patient to follow fat/low chol diet like the Mediterranean diet. Increase good fats in the diet. Increase exercise. Monitor labs as needed. Continue statin Assessment & Plan (12/24/2020 9:07 AM CDT): Encouraged patient to follow fat/low chol diet like the Mediterranean diet. Increase good fats in the diet. Increase exercise. Monitor labs as needed. Continue statin Assessment & Plan (08/31/2020 9:34 AM E BUSINESS PROJECT MANAGER): Encouraged patient to follow fat/low chol diet like the Mediterranean diet. Increase good fats in the diet. Increase exercise. Monitor labs as needed. Continue statin Assessment & Plan (02/18/2020 9:46 PM CDT): Encouraged patient to continue low fat/low chol diet. Continue exercise. Increase good fats in the diet. Monitor labs as needed. Assessment & Plan (08/13/2019 8:59 AM E BUSINESS PROJECT MANAGER): Encouraged patient to continue low fat/low chol [...] future Assessment & Plan (09/06/2023 9:40 AM E BUSINESS PROJECT MANAGER): Continue PPI Assessment & Plan (04/06/2023 7:36 PM CDT): Continue PPI p.r.n. Assessment & Plan (01/20/2023 8:13 PM CDT): Continue PPI Assessment & Plan (09/12/2022 6:13 PM CDT): Continue PPI p.r.n. Assessment & Plan (06/03/2022 3:40 PM E BUSINESS PROJECT MANAGER): Pyrosis poorly controlled on Nexium. Pt has [...] PPI Assessment & Plan (09/11/2021 11:26 PM E BUSINESS PROJECT MANAGER): Continue PPI Assessment & Plan (12/24/2020 9:05 AM CDT): Continue PPI Assessment & Plan (02/18/2020 9:45 PM CDT): Continue PPI. Saw Dr. Linton for increased GERD sxs. If persist, encouraged to followup again with Dr. Linton. Assessment & Plan (08/13/2019 8:58 AM E BUSINESS PROJECT MANAGER): Stable with PPI Assessment & Plan (04/29/2019 [...] exertion) Assessment & Plan (06/22/2022 10:30 AM E BUSINESS PROJECT MANAGER): Patient is not currently using inhalers. She [...] 10/14/2015 Assessment & Plan (08/02/2024 11:49 AM E BUSINESS PROJECT MANAGER): Due to the patient stating the pressure [...] readjusted. She denied need for supplies. DME [facility] Assessment & Plan (05/07/2024 8:55 PM E BUSINESS PROJECT MANAGER): Continue with CPAP. Assessment & Plan (04/21/2024 8:49 PM CDT): Continue per Dr. Dunn. Has all her needed supplies for CPAP which she is using every night. Continue with Requip 0.5 mg HS for restless leg Assessment & Plan (01/22/2024 8:08 PM CDT): Continue CPAP per Dr. Dunn Assessment & Plan (09/06/2023 9:40 AM E BUSINESS PROJECT MANAGER): Continue CPAP Assessment & Plan (06/21/2023 10:14 AM E BUSINESS PROJECT MANAGER): Patient continue to wear her CPAP at [...] CPAP Assessment & Plan (06/22/2022 10:31 AM E BUSINESS PROJECT MANAGER): Will continue CPAP therapy at an auto titrating range of 7-20 cm water pressure. Denied need for supplies. [facility]ME [facility] Assessment & Plan (05/02/2022 9:15 [...] pressure. Patient denied need for supplies. DME [employer] [facility]. Patient is benefitting CPAP Assessment & Plan (09/11/2021 11:22 PM E BUSINESS PROJECT MANAGER): Continue CPAP. Patient has all needed supplies. Assessment & Plan (07/13/2021 11:27 AM E BUSINESS PROJECT MANAGER): Due to the patient stating she does not have enough pressure in her machine, I have increased the pressure to 13 cm water pressure. The patient denied need for for supplies. DME company [facility]. Have also ordered a new smart card set at 13 cm water pressure. Benefitting from CPAP therapy Assessment & Plan (05/29/2021 8:14 PM E BUSINESS PROJECT MANAGER): Continue CPAP. Assessment & Plan (02/17/2021 11:09 AM CDT): The patient continues to be compliant with her CPAP at 8 cm water pressure. She has developed worsening daytime hypersomnia. She also has morning headaches and dry mouth. I have recommended proceeding with a CPAP titration study starting at 8 cm water pressure. Her DME is [facility]. Assessment & Plan (12/24/2020 9:04 AM CDT): Continue CPAP. Would like to see Pulm[facility]sleep at [facility] as difficulty getting in consistently at [place] and most of her care is now [facility] Assessment & Plan (02/18/2020 9:44 PM CDT): Continue CPAP Assessment & Plan (08/13/2019 8:46 AM E BUSINESS PROJECT MANAGER): Using the CPAP. Has equipment as needed. [...] noted. Assessment & Plan (08/23/2024 10:16 AM E BUSINESS PROJECT MANAGER): 02/2021 XR L knee with mild to moderate OA, now s/p B TKA. Following with ortho as planned. Assessment & Plan (07/30/2024 11:23 AM E BUSINESS PROJECT MANAGER): 02/2021 XR L knee with mild to [...] March. Assessment & Plan (09/01/2023 3:42 PM E BUSINESS PROJECT MANAGER): 02/2021 XR L knee with mild to moderate OA, R knee negative. Had injections with ortho without benefit, now s/p L TKA. Assessment & Plan (06/30/2023 12:46 PM E BUSINESS PROJECT MANAGER): 02/2021 XR L knee with mild to [...] g/d. Assessment & Plan (07/15/2022 1:41 PM E BUSINESS PROJECT MANAGER): 02/2021 XR L knee with mild to moderate OA, R knee negative. Had injections with ortho with benefit. Unable to afford PT. Can continue Tylenol Arthritis, not to exceed 4 g/d. Assessment & Plan (06/03/2022 9:58 AM E BUSINESS PROJECT MANAGER): 02/2021 XR L knee with mild to [...] evaluation. Assessment & Plan (09/03/2021 11:27 AM E BUSINESS PROJECT MANAGER): XR L knee with mild to moderate [...] able. Assessment & Plan (06/04/2021 10:27 AM E BUSINESS PROJECT MANAGER): XR L knee with mild to moderate [...] above. Assessment & Plan (09/03/2020 12:23 PM E BUSINESS PROJECT MANAGER): 10/27/2017 XR L knee: mild tricompartmental OA. Will continue meloxicam as above. Assessment & Plan (07/09/2020 12:24 PM E BUSINESS PROJECT MANAGER): 10/27/2017 XR L knee: mild tricompartmental OA. Will continue meloxicam as above. In the future may consider trial of PT. 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 ([facility]) 11/17/2013 Overview (03/15/2024): Imaging 01/16/2021 XR R [...] examination. Assessment & Plan (08/23/2024 12:54 PM E BUSINESS PROJECT MANAGER): Moderate cdai with report of increasing pain, [...] needed. Assessment & Plan (07/30/2024 11:22 AM E BUSINESS PROJECT MANAGER): Moderate cdai with report of increased morning [...] phone visit with labs near her home ([facility] in [place]), but the following month will need to plan for an in person visit. She expressed understanding and agreement with this plan. Continue methotrexate 20 mg weekly, folic acid 2 mg daily, and hydroxychloroquine 200 mg BID. Labs today as below. Assessment & Plan (05/07/2024 8:55 PM E BUSINESS PROJECT MANAGER): Managed by [facility]. Currently on Plaquenil and methotrexate and Orencia folic acid Mobic and gabapentin. Stressed she needs to be in contact with her buffet attendant on when and which medicines to stop for the surgery. Assessment & Plan (04/21/2024 8:49 PM CDT): Continue per [facility]. They currently manage her rheumatoid arthritis [...] (01/22/2024 8:17 PM CDT): Continue per [facility] as they manage her condition. Assessment & Plan (11/24/2023 9:58 AM CDT): Low cdai without inflammatory sounding pain. Will continue methotrexate 20 mg weekly, folic acid 2 mg daily, hydroxychloroquine 200 mg BID, and Orencia and monitor. Labs today as below. Follow up in 3 months or sooner as needed. Assessment & Plan (09/06/2023 9:42 AM E BUSINESS PROJECT MANAGER): Rheumatoid arthritis is managed by [facility]. Currently on Plaquenil methotrexate Orencia and folic acid Assessment & Plan (09/01/2023 3:39 PM E BUSINESS PROJECT MANAGER): Overall stable without notable synovitis and no inflammatory sounding pain. Will continue methotrexate 20 mg weekly, folic acid 2 mg daily, hydroxychloroquine 200 mg BID, and Orencia and monitor. Labs today as below. Follow up in 3 months or sooner as needed. Assessment & Plan (08/03/2023 8:28 AM E BUSINESS PROJECT MANAGER): Continue with rheumatology. Assessment & Plan (06/30/2023 12:43 PM E BUSINESS PROJECT MANAGER): Overall stable without notable synovitis and no inflammatory sounding pain. Will continue methotrexate 20 mg weekly, folic acid 2 mg daily, hydroxychloroquine 200 mg BID, and Orencia and monitor. Labs today as below. Assessment & Plan (06/02/2023 4:49 PM E BUSINESS PROJECT MANAGER): Continue per Rheumatology Assessment & Plan (04/06/2023 7:35 PM CDT): Continue per Rheumatology. She has been in discussion with them on what medications to stop prior to her knee surgery. She states she was told to take all of her medicines accept the Orencia. Assessment & Plan (01/20/2023 8:12 PM CDT): Continue per Rheumatology [facility] Assessment & Plan (01/13/2023 3:42 [...] Plan (09/12/2022 6:06 PM CDT): Continue with [facility] Assessment & Plan (07/15/2022 1:41 PM E BUSINESS PROJECT MANAGER): Low cdai. Significantly improved after IM triamcinolone [...] needed. Assessment & Plan (06/03/2022 3:37 PM E BUSINESS PROJECT MANAGER): High cdai. Previously felt well controlled with current regimen. Due to burden of disease will give patient a triamcinolone injection. Patient made aware of SE of steroids including but not limited to HTN, increased blood glucose, cataracts, glaucoma, AVN, and osteoporosis with mcc use. Should she flare again shortly after [...] (01/23/2022 4:57 PM CDT): Continue management per [facility] Assessment & Plan (12/07/2021 9:02 AM CDT): Low cdai. Denies inflammatory sounding joint pain. Continue methotrexate 25 mg weekly, folic acid to 2 mg daily, Rinvoq 15 mg daily, hydroxychloroquine 200 mg BID, and cyclobenzaprine 5 mg qhs and monitor. Labs today as below. Plan for follow up in 3 months or sooner as needed. Assessment & Plan (09/11/2021 11:14 PM E BUSINESS PROJECT MANAGER): Continue per [facility] Assessment & Plan (09/03/2021 11:25 AM E BUSINESS PROJECT MANAGER): cdai = 12. Pt suspects increased joint [...] needed. Assessment & Plan (06/04/2021 10:25 AM E BUSINESS PROJECT MANAGER): Low cdai. Denies inflammatory sounding pain at present. Will plan to continue methotrexate 25 mg weekly, folic acid to 2 mg daily, Rinvoq 15 mg daily, hydroxychloroquine 200 mg BID, and cyclobenzaprine 5 mg qhs and monitor. Labs today as below. Plan for follow up in 3 months or sooner as needed. Assessment & Plan (05/31/2021 9:15 PM E BUSINESS PROJECT MANAGER): Continue per Rheumatology Assessment & Plan (05/29/2021 8:13 PM E BUSINESS PROJECT MANAGER): Continue per Rheumatology. Currently on Plaquenil methotrexate and folic acid. Assessment & Plan (05/24/2021 10:38 AM E BUSINESS PROJECT MANAGER): Continue per Rheumatology Assessment & Plan (03/05/2021 [...] needed. Assessment & Plan (09/03/2020 12:22 PM E BUSINESS PROJECT MANAGER): Low cdai. Continues to feel improved with [...] needed. Assessment & Plan (08/31/2020 9:34 AM E BUSINESS PROJECT MANAGER): Continue per [facility] Assessment & Plan (07/09/2020 12:22 PM E BUSINESS PROJECT MANAGER): 64yoF with a h/o seropositive RA diagnosed [...] time. Assessment & Plan (06/04/2020 11:14 AM E BUSINESS PROJECT MANAGER): 64yoF with a h/o seropositive RA diagnosed [...] needed. Assessment & Plan (05/14/2020 9:33 PM E BUSINESS PROJECT MANAGER): Refer to new Civil Preparedness Officer as Dr. Soto has . Assessment & Plan (02/18/2020 9:46 PM CDT): Continue per Rheum Assessment & Plan (08/13/2019 8:59 AM E BUSINESS PROJECT MANAGER): Continue per Dr. Soto Assessment & Plan [...] to Reclast. Forteo was tried by [facility] and she could not tolerate. Has [...] of her osteoporosis, recommended evaluation by the [facility], unfortunately their first available appt was in November 2024. Recommended today that she check with [facility] (at [facility]) to see how far out they are scheduling new patients, though she does not like this option due to distance from her house. Assessment & Plan (09/06/2023 9:40 AM E BUSINESS PROJECT MANAGER): Managed by [facility]. Per patient they are making a referral to bone metabolism at [facility] she has not seen significant improvement with the Forteo or the Reclast. Assessment & Plan (09/01/2023 3:43 PM E BUSINESS PROJECT MANAGER): DEXA: Lspine BMD 0.809 Tscore -2.2, L [...] of her osteoporosis, recommend evaluation by the [facility], provided contact info for Dr. Castillo. Pt in agreement with plan. Assessment & Plan (06/30/2023 12:49 PM E BUSINESS PROJECT MANAGER): DEXA: Lspine BMD 0.809 Tscore -2.2, L [...] PM CDT): Continue to monitor. Managed by [facility]. Patient is on Reclast calcium vitamin-D [...] exercise Assessment & Plan (07/15/2022 1:42 PM E BUSINESS PROJECT MANAGER): 01/27/2021 DEXA: Lspine -1.8, L femoral neck -1.9, L total hip -1.2, R femoral neck -2.3, R total hip -1.0, FRAX major 32% and hip 7%. Received Reclast 07/2021. Continue yearly Reclast, scheduled for 07/22 Assessment & Plan (06/03/2022 3:38 PM E BUSINESS PROJECT MANAGER): 01/27/2021 DEXA: Lspine -1.8, L femoral neck [...] Plan (01/23/2022 5:02 PM CDT): Managed by [facility] currently on Reclast calcium and vitamin-D Assessment & Plan (12/07/2021 9:04 AM CDT): 01/27/2021 DEXA: Lspine -1.8, L femoral neck -1.9, L total hip -1.2, R femoral neck -2.3, R total hip -1.0, FRAX major 32% and hip 7%. Received Reclast 07/2021. Continue yearly Reclast. Assessment & Plan (09/03/2021 11:26 AM E BUSINESS PROJECT MANAGER): 01/27/2021 DEXA: Lspine -1.8, L femoral neck -1.9, L total hip -1.2, R femoral neck -2.3, R total hip -1.0, FRAX major 32% and hip 7%. Received Reclast 07/2021. Continue yearly reclast and daily vitamin D-calcium supplement. Assessment & Plan (06/04/2021 10:27 AM E BUSINESS PROJECT MANAGER): 01/27/2021 DEXA: Lspine -1.8, L femoral neck [...] order provided today, she will schedule at [facility] Assessment & Plan (12/24/2020 9:06 AM CDT): Continue Reclast thru Rheum Continue calcium, vitD and exercise Assessment & Plan (12/03/2020 10:45 AM CDT): Vitamin D level was 68. Received Reclast 07/09/2020. Last DEXA per available records was 01/31/2019, due this summer - order provided today, she will schedule at [facility] Assessment & Plan (09/03/2020 12:23 PM E BUSINESS PROJECT MANAGER): Vitamin D level was 68. Received Reclast 07/09/2020. Last DEXA per available records was 01/31/2019, due this summer. Assessment & Plan (07/09/2020 12:23 PM E BUSINESS PROJECT MANAGER): Overdue for Reclast, last infusion was 03/28/2019, will receive infusion today. Vitamin D level was 68 Last DEXA per available records was 01/31/2019 Assessment & Plan (06/04/2020 11:15 AM E BUSINESS PROJECT MANAGER): Overdue for Reclast, last infusion was 03/28/2019, will check benefits. Recheck vitamin D level now. Last DEXA per available records was 01/31/2019 Assessment & Plan (02/18/2020 9:46 PM CDT): Calcium, vit D and exercise. Continue to monitor DXA Assessment & Plan (08/13/2019 8:58 AM E BUSINESS PROJECT MANAGER): Continue with Calcium, Vit D and Exercise. [...] Krishnamurthy. 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 Daniels Stressed importance of very close follow-up BMI 37.0-37.9, adult 09/06/2023 024 Assessment & Plan (10/13/2023 7:38 AM CDT): Discussed the patient's BMI. The BMI is above average. BMI management plan is completed. BMI Follow-up includes: nutrition counseling, exercise counseling and education provided. Assessment & Plan (09/06/2023 9:42 AM E BUSINESS PROJECT MANAGER): Discussed the patient's BMI. The BMI is above average. BMI management plan is completed. BMI Follow-up includes: nutrition counseling, exercise counseling and education provided. Hyperglycemia 09/06/2023 09/06/2023 Positive depression screening 09/06/2023 09/06/2023 Annual physical exam 09/06/2023 024 Assessment & Plan (09/06/2023 9:43 AM E BUSINESS PROJECT MANAGER): Encouraged healthy lifestyle, good nutrition and exercise. Encouraged Calcium and Vitamin D and weight bearing exercise for bone health. Reviewed immunizations Reviewed age appropirate screenings. Right knee pain 08/09/2023 09/06/2023 Sinus congestion 08/07/2023 09/06/2023 Assessment & Plan (08/07/2023 7:54 PM E BUSINESS PROJECT MANAGER): Persistent sinusitis symptoms along with cough. Will start doxy b.i.d.. Start antihistamine (Claritin OR Zyrtec), Mucinex 12hour and Steroid nasal spray (Flonase). Push fluids. Rest. Supportive care. If sxs worsen or don\'t improve, pt is to followup in the office. Acute cough 08/07/2023 01/22/2024 Assessment & Plan (08/07/2023 7:55 PM E BUSINESS PROJECT MANAGER): Persistent sinusitis symptoms along with cough. Will start doxy b.i.d.. Start antihistamine (Claritin OR Zyrtec), Mucinex 12hour and Steroid nasal spray (Flonase). Push fluids. Rest. Supportive care. If sxs worsen or don\'t improve, pt is to followup in the office. BMI 35.0-35.9,adult 08/03/2023 09/06/19 24 Assessment & Plan (08/07/2023 7:51 PM E BUSINESS PROJECT MANAGER): Discussed the patient's BMI. The BMI is above average. BMI management plan is completed. BMI Follow-up includes: nutrition counseling, exercise counseling and education provided. Assessment & Plan (08/03/2023 8:29 AM E BUSINESS PROJECT MANAGER): Discussed the patient's BMI. The BMI is [...] 01/22/2024 Assessment & Plan (06/02/2023 4:57 PM E BUSINESS PROJECT MANAGER): Later in the day received critical lab call for a CO2 value at 42. My staff contacted the patient and she was instructed to go to the ER for further evaluation to determine underlying cause. She states throughout the day she has noticed a little bit more shortness of breath. She plans to have her brother drive her to [facility]. Charge nurse was notified of the arrival [...] surgery. 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 Her chronic medical conditions are stable. [facility] as instructed her to hold the [...] Dr. Ge Sexton on May 04 at [facility]. Need for vaccination for Strep pneumoniae [...] symptoms worsen or do not respond to [id number] allergy medicines within the next week she may call and will consider antibiotic. Left knee pain 09/13/2022 09/06/2023 BMI 39.0-39.9,adult 08/23/2022 11/09/19 Assessment & Plan (10/25/2022 3:32 PM CDT): Discussed the patient's BMI. The BMI is above average. BMI management plan is completed. BMI Follow-up includes: nutrition counseling, exercise counseling and education provided. Assessment & Plan (08/23/2022 2:19 PM E BUSINESS PROJECT MANAGER): Discussed the patient's BMI. The BMI is [...] plans Assessment & Plan (07/18/2022 10:20 AM E BUSINESS PROJECT MANAGER): CT revealed pelvic lipomatosis that is compressing [...] 12/20/2022 Assessment & Plan (07/18/2022 10:21 AM E BUSINESS PROJECT MANAGER): CT revealed pelvic lipomatosis that is compressing [...] plan, Assessment & Plan (07/08/2022 12:33 PM E BUSINESS PROJECT MANAGER): Patient has had dysuria. She was started [...] 07/08/202204/06 Assessment & Plan (07/18/2022 10:21 AM E BUSINESS PROJECT MANAGER): CT revealed pelvic lipomatosis that is compressing [...] plan, Assessment & Plan (07/08/2022 5:58 PM E BUSINESS PROJECT MANAGER): Images from the original note were not [...] STAT abd/pelvis with and without contrast at [place]. Check labs STAT. STAT CT Abd/pelvis without [...] 09/06/2023 Assessment & Plan (07/08/2022 12:33 PM E BUSINESS PROJECT MANAGER): Patient has had dysuria. She was started [...] STAT abd/pelvis with and without contrast at [place]. Check labs STAT. Assessment & Plan (07/06/2022 8:50 AM E BUSINESS PROJECT MANAGER): Pt presents with dysuria. Urine dip completed. [...] 35.00-39.99. Assessment & Plan (07/18/2022 10:23 AM E BUSINESS PROJECT MANAGER): Discussed the patient's BMI. The BMI is above average. BMI management plan is completed. BMI Follow-up includes: nutrition counseling, exercise counseling and education provided. Assessment & Plan (07/08/2022 12:30 PM E BUSINESS PROJECT MANAGER): Discussed the patient's BMI. The BMI is [...] She has received multiple injections from her buffet attendant regarding her knee but yesterday when she [...] 01/23/2022 Assessment & Plan (09/11/2021 11:28 PM E BUSINESS PROJECT MANAGER): Patient has never had a full skin exam. She has quite a few lesions scattered and would benefit from a full exam. Will make referral Annual physical exam 09/11/2021 022 Assessment & Plan (09/11/2021 11:28 PM E BUSINESS PROJECT MANAGER): Encouraged healthy lifestyle, good nutrition and exercise. Encouraged Calcium and Vitamin D and weight bearing exercise for bone health. Reviewed immunizations Reviewed age appropirate screenings. Cough 08/13/2021 01/23/2022 Assessment & Plan (08/13/2021 3:43 PM E BUSINESS PROJECT MANAGER): Patient to presume positive COVID/FLU until results are available and plan to self isolate for up to 10 days from the onset of sxs. Check COVID/FLU test thru [facility] collection site in [place]. Let pt know the newest CDC recommendations [...] future. Assessment & Plan (07/13/2021 11:28 AM E BUSINESS PROJECT MANAGER): I have ordered the patient Claritin 10 [...] provided. Assessment & Plan (09/11/2021 11:27 PM E BUSINESS PROJECT MANAGER): Obesity is unchanged. Discussed the patient's BMI. The BMI is above average. BMI management plan is completed. BMI Follow-up includes: nutrition counseling, exercise counseling and education provided. Assessment & Plan (05/29/2021 8:24 PM E BUSINESS PROJECT MANAGER): Obesity is unchanged. Discussed the patient's BMI. The BMI is above average. BMI management plan is completed. BMI Follow-up includes: nutrition counseling, exercise counseling and education provided. Assessment & Plan (05/12/2021 1:26 PM E BUSINESS PROJECT MANAGER): Obesity is unchanged. Discussed the patient's BMI. The BMI is above average. BMI management plan is completed. BMI Follow-up includes: nutrition counseling, exercise counseling and education provided. BMI 37.0-37.9, adult 05/12/2021 022 Assessment & Plan (09/11/2021 11:27 PM E BUSINESS PROJECT MANAGER): Obesity is unchanged. Discussed the patient's BMI. The BMI is above average. BMI management plan is completed. BMI Follow-up includes: nutrition counseling, exercise counseling and education provided. Assessment & Plan (05/29/2021 8:24 PM E BUSINESS PROJECT MANAGER): Obesity is unchanged. Discussed the patient's BMI. The BMI is above average. BMI management plan is completed. BMI Follow-up includes: nutrition counseling, exercise counseling and education provided. Assessment & Plan (05/12/2021 1:26 PM E BUSINESS PROJECT MANAGER): Obesity is unchanged. Discussed the patient's BMI. The BMI is above average. BMI management plan is completed. BMI Follow-up includes: nutrition counseling, exercise counseling and education provided. Tinea corporis 04/14/2021 01/23/2022 Assessment & Plan (05/31/2021 9:15 PM E BUSINESS PROJECT MANAGER): Improving with Lotrisone. Keep the area clean and dry Assessment & Plan (05/29/2021 8:24 PM E BUSINESS PROJECT MANAGER): Lotrisone to pharmacy. Encouraged her to keep the area clean and dry use her dryer to dry the skin before applying the cream. She is to call if symptoms worsen or do not resolve. Need for immunization against influenza 04/14/2021 05/31/2021 Assessment & Plan (05/29/2021 8:24 PM E BUSINESS PROJECT MANAGER): Fluid updated in the office Medicare annual wellness visit, subsequent 04/13/2021 05/31/2021 Assessment & Plan (05/29/2021 8:23 PM E BUSINESS PROJECT MANAGER): Encouraged healthy lifestyle, good nutrition and exercise. [...] 12/30/2020 Assessment & Plan (08/31/2020 9:31 AM E BUSINESS PROJECT MANAGER): Error. This should be right calf but PT order sent and corrected so unable to remove. Fatigue 08/31/2020 09/06/2023 Assessment & Plan (04/06/2023 7:43 PM CDT): Probably multifactorial. Check labs and followup to re-evaluate Assessment & Plan (05/02/2022 9:16 PM CDT): Probably multifactorial. Check labs and followup to re-evaluate Assessment & Plan (08/31/2020 9:34 AM E BUSINESS PROJECT MANAGER): Probably multifactorial. Check labs and followup to re-evaluate Pain in both lower extremities 08/31/2020 09/06/2023 Assessment & Plan (09/01/2023 3:41 PM E BUSINESS PROJECT MANAGER): Cramping lower leg pain has resolved with [...] 021 Assessment & Plan (08/31/2020 9:33 AM E BUSINESS PROJECT MANAGER): Obesity is unchanged. Discussed the patient's BMI. The BMI is above average. BMI management plan is completed. BMI Follow-up includes: nutrition counseling, exercise counseling and education provided. Pain of right calf 08/26/2020 Assessment & Plan (08/31/2020 9:31 AM E BUSINESS PROJECT MANAGER): This is a significant, separately identifiable problem that was evaluated and managed on the same day as the wellness exam Unable to rule out DVT with her calf pain/sxs. Check STAT Venous doppler. Recvd Results and discussed with patient via phone. Negative for DVT. Recommend PT. Prefers [place] Annual physical exam 08/24/2020 021 Assessment & Plan (08/31/2020 9:34 AM E BUSINESS PROJECT MANAGER): Encouraged healthy lifestyle, good nutrition and exercise. Encouraged Calcium and Vitamin D and weight bearing exercise for bone health. Reviewed immunizations Reviewed age appropirate screenings. Dizziness 05/07/2020 09/06/2023 Assessment & Plan (05/14/2020 9:35 PM E BUSINESS PROJECT MANAGER): Suspect the dizziness is inner ear related. [...] imaging. Assessment & Plan (05/07/2020 1:49 PM E BUSINESS PROJECT MANAGER): Declines to report to er now 'I [...] 05/14/2020 Assessment & Plan (05/07/2020 1:49 PM E BUSINESS PROJECT MANAGER): Declines to report to er now 'I [...] 12/30/2020 Assessment & Plan (05/07/2020 1:49 PM E BUSINESS PROJECT MANAGER): Declines to report to er now 'I [...] provided Assessment & Plan (05/31/2021 9:15 PM E BUSINESS PROJECT MANAGER): Mammogram order provided Assessment & Plan (02/18/2020 9:47 PM CDT): Mammogram order provided today Medicare annual wellness visit, subsequent 02/15/2020 02/15/2020 Precordial pain 09/04/2019 09/06/2023 Assessment & Plan (08/07/2023 7:50 PM E BUSINESS PROJECT MANAGER): Workup in the hospital. Cardiology states her [...] inhaler. Assessment & Plan (07/13/2021 11:26 AM E BUSINESS PROJECT MANAGER): The patient will continue with Dulera 2 [...] 020 Assessment & Plan (08/13/2019 8:59 AM E BUSINESS PROJECT MANAGER): Encouraged healthy lifestyle, good nutrition and exercise. Encouraged Calcium and Vitamin D and weight bearing exercise for bone health. Reviewed immunizations Reviewed age appropirate screenings. Obesity, morbid, BMI 40.0-49.9 08/13/2019 09/23/2020 Assessment & Plan (08/26/2020 7:10 AM E BUSINESS PROJECT MANAGER): Obesity is unchanged. Discussed the patient's BMI. The BMI is above average. BMI management plan is completed. BMI Follow-up includes: nutrition counseling, exercise counseling and education provided. Assessment & Plan (05/14/2020 9:33 PM E BUSINESS PROJECT MANAGER): Obesity is unchanged. Discussed the patient's BMI. [...] provided. Assessment & Plan (08/13/2019 8:58 AM E BUSINESS PROJECT MANAGER): Obesity is unchanged. Discussed the patient's BMI. [...] change Assessment & Plan (08/13/2019 9:01 AM E BUSINESS PROJECT MANAGER): This is a significant, separately identifiable problem [...] 01/22/2024 Assessment & Plan (09/06/2023 9:42 AM E BUSINESS PROJECT MANAGER): Probably multifactorial. Check labs and followup to re-evaluate Assessment & Plan (09/03/2021 11:28 AM E BUSINESS PROJECT MANAGER): She notes increased fatigue and lack of [...] re-evaluate Assessment & Plan (08/13/2019 9:08 AM E BUSINESS PROJECT MANAGER): Probably multifactorial. Check labs and followup to re-evaluate Check labs prior to next visit BMI 40.0-44.9, adult 08/02/2019 020 Assessment & Plan (08/13/2019 8:57 AM E BUSINESS PROJECT MANAGER): Obesity is unchanged. Discussed the patient's BMI. The BMI is above average. BMI management plan is completed. BMI Follow-up includes: nutrition counseling, exercise counseling and education provided. Assessment & Plan (08/02/2019 7:21 AM E BUSINESS PROJECT MANAGER): Obesity is unchanged. Discussed the patient's BMI. The BMI is above average. BMI management plan is completed. BMI Follow-up includes: nutrition counseling, exercise counseling and education provided. Morbid obesity 08/02/2019 08/13/2019 Assessment & Plan (08/02/2019 7:20 AM E BUSINESS PROJECT MANAGER): Obesity is unchanged. Discussed the patient's BMI. The BMI is above average. BMI management plan is completed. BMI Follow-up includes: nutrition counseling, exercise counseling and education provided. Acute non-recurrent maxillary sinusitis 08/02/2019 08/13/2019 Assessment & Plan (08/02/2019 7:47 AM E BUSINESS PROJECT MANAGER): Start antibiotic, antihistamine, Mucinex and Steroid nasal [...] foot. She is being sent directly to [facility] and they were working her in [...] 21 Assessment & Plan (05/14/2020 9:33 PM E BUSINESS PROJECT MANAGER): Completed Doxy and steroid. No s/s infection. [...] p.r.n. Assessment & Plan (08/13/2019 8:59 AM E BUSINESS PROJECT MANAGER): Continue with NSAIDs prn Atheroscler of [place] artery of both legs with intermit claudication 10/31/2018 12/20/2022 Assessment & Plan (09/11/2021 11:23 PM E BUSINESS PROJECT MANAGER): Continue per vascular. She is on aspirin and statin Assessment & Plan (12/24/2020 9:03 AM CDT): Sxs stable. On ASA, statin and encouraged daily exercise. Assessment & Plan (02/18/2020 9:43 PM CDT): Continue per cardio. On ASA and statin Assessment & Plan (08/13/2019 8:45 AM E BUSINESS PROJECT MANAGER): Continues with Dr. Alonso salmeron Assessment & Plan (11/01/2018 11:00 PM CDT): Pt sxs well controlled. On ASA Coronary artery disease of n ative artery of [place] heart with stable angina pectoris 10/31/2018 12/30/2020 Assessment & Plan (08/13/2019 8:36 AM E BUSINESS PROJECT MANAGER): On ASA and Nitrate. Continue per cardio Depression 07/16/2018 09/11/2021 Frontal sinusitis 06/26/2018 12/24/2020 Leukopenia 03/29/2018 12/30/2020 Other chronic pain 08/05/2017 3 Chronic seasonal allergic rh initis due to pollen 04/25/2017 12/30/2020 Assessment & Plan (12/24/2020 9:03 AM CDT): Continue current regimen with singulair and otc Assessment & Plan (02/18/2020 9:44 PM CDT): Continue with otc regimen Assessment & Plan (08/13/2019 8:46 AM E BUSINESS PROJECT MANAGER): Continue current regimen Assessment & Plan (11/01/2018 [...] potassium Assessment & Plan (09/11/2021 11:26 PM E BUSINESS PROJECT MANAGER): Bp is stable/in acceptable range for any co-morbidities. Encouraged to limit sodium intake and exercise for weight control. Currently stable without medication Assessment & Plan (05/29/2021 8:19 PM E BUSINESS PROJECT MANAGER): Bp is stable/in acceptable range for any co-morbidities. Encouraged to limit sodium intake and exercise for weight control. Continue Lasix is helping with the swelling and addition. Blood pressure stable Assessment & Plan (05/24/2021 10:38 AM E BUSINESS PROJECT MANAGER): Continue Lasix potassium Assessment & Plan (12/24/2020 9:05 AM CDT): Bp is stable/in acceptable range for any co-morbidities. Encouraged to limit sodium intake and exercise for weight control. Assessment & Plan (08/31/2020 9:32 AM E BUSINESS PROJECT MANAGER): Bp is stable/in acceptable range for any co-morbidities. Encouraged to limit sodium intake and exercise for weight control. Stable with laxis currently Assessment & Plan (02/18/2020 9:44 PM CDT): Bp is stable/in acceptable range for any co-morbidities. Encouraged to limit sodium intake and exercise for weight control. Assessment & Plan (08/13/2019 8:57 AM E BUSINESS PROJECT MANAGER): Bp is stable/in acceptable range for any [...] difficulty pulling them. Recommend finding some on [employer] that fit her calf that she can zip on and off. Showed them to her on [employer] and where to order them. She states she will try to get them. Assessment & Plan (05/31/2021 9:16 PM E BUSINESS PROJECT MANAGER): Improving slowly. May have been due to the Relafen. She is on 60 of Lasix with potassium 10 mEq daily. Continue with current plan. Keep legs elevated. Utilize compressi to improve cleared. on hose. Call if symptoms worsen or do not continue to improve. Assessment & Plan (05/29/2021 8:23 PM E BUSINESS PROJECT MANAGER): Persistent lower extremity edema that has improved [...] CMP. Assessment & Plan (05/24/2021 10:39 AM E BUSINESS PROJECT MANAGER): Patient that her swelling was improving since discharge for over the last day or so it seems to be increasing. Will increase the Lasix to 40mg Start K 10meq daily Recheck labs in 5 days Assessment & Plan (08/31/2020 9:33 AM E BUSINESS PROJECT MANAGER): Continue lasix Palpitations 12/08/2015 12/30/2020 Overview (10/09/2016): Palpitations Other abnormal glucose 11/11/201508/31 Asthma 10/14/2015 12/24/2020 Assessment & Plan (08/13/2019 8:49 AM E BUSINESS PROJECT MANAGER): Continue with current regimen and with Pulmonary Assessment & Plan (11/01/2018 10:53 PM CDT): Currently Stable with regimen. Monitor closely with current allergy season. Followup Dr. Gomez as directed. Menopause 10/14/2015 12/30/2020 Cervical pain (neck) 10/14/2015 023 Immunizations Immunization Administration Dates Next Due COVID-19 mRNA (Skedo) 0.3 m L (30 mcg) vaccine (12 [...] drink = 0.6 oz pur e alcohol) [facility] Utilities Answer Date Recorded In the past 12 months has [facility], gas, oil, or water company threatened to [...] week 05/30/2024 How often do you attend [facility] or yarsani services? 1 to 4 times per year 05/30/2024 Do you belong to any clubs o r organizations such as buddhist groups, unions, fraternal or athletic groups, or [...] place to sleep or slept in a prison (including now)? No 05/27/2023 Housing Stability Vital Sign Answer Jarrett e Recorded In the last 12 months, was t here a time when you were not able to pay the mortgage or rent on time? No 05/30/2024 In the past 12 months, how m any times have you moved where you were living? 0 05/30/2024 At any time in the past 12 m [facility], were you homeless or living in a prison (including now)? No 05/30/2024 Personal Safety Answer Date Recorded Have you ever been in or are you currently in a harmful physical or emotional relationship or is someone making you feel afraid or unsafe? Denies 05/30/2024 Comments No Sex and Gender Information Value Date Recorded Sex Assigned at Not on file Legal Sex Female 8:04 PM E BUSINESS PROJECT MANAGER Gender Identity Female 02/15/2020 6:08 PM CDT Sexual Orientation Not on file Last Filed Vital Signs Vital Sign Reading Time Taken Comments Blood Pressure 112/78 08/23/2024 11:24 AM E BUSINESS PROJECT MANAGER Pulse 73 08/23/2024 11:24 AM E BUSINESS PROJECT MANAGER Temperature 36.9 C (98.4 F) 08/02/2024 11:18 AM E BUSINESS PROJECT MANAGER Respiratory Rate 18 08/02/2024 11:1 8 AM E BUSINESS PROJECT MANAGER Oxygen Saturation 97% 08/23/2024 11: 24 AM E BUSINESS PROJECT MANAGER Inhaled Oxygen Concentration - - Weight 88.4 kg (194 lb 12.8 oz) 025 11:24 AM E BUSINESS PROJECT MANAGER Height 154.9 cm (5' 1 ) 08/23/2024 11:2 4 AM E BUSINESS PROJECT MANAGER Body Mass Index 36.81 08/23/2024 11:24 AM E BUSINESS PROJECT MANAGER Plan of Treatment Not on file Medical Devices Implanted Type Area Ski Maker Device Identifier Shelf Expiration Date Model / Serial / Lot [employer] Simplex P Radiopaque Full Dose Cement Bone Sterile 6191-1-010 - [id number] Implanted:Qty: 2 on 05/04/2023 by Michael Motta MD at [facility] Bone Cement Left: Knee [employer] 05/03/2025 6191-1-010 / 6191-1-001 / [id number] [employer] Simplex P Radiopaque Full Dose Cement Bone Sterile 6191-1-010 - [id number] Implanted:Qty: 2 on 05/30/2024 by Michael Motta MD at [facility] Bone Cement Right: Patella [employer] [id number] 05/03/2026 6191-1-010 / / [id number] [employer] Persona 14mm 30+ Mm Knee Tibia Taper Extension Stem [id number] - [id number] 4 - [id number] Implanted:Qty: 1 on 05/04/2023 by Michael Motta MD at [facility] Left: Knee [employer] [id number] 02/15/2033 [id number] / [id number] 14 / [id number] [employer] Persona Cemented Cruciate Retaining Knee Left 7 Narrow Component [id number] - [id number] 1 - [id number] Implanted:Qty: 1 on 05/04/2023 by Michael Motta MD at [facility] Left: Knee [employer] [id number] 10/25/2032 [id number] / [id number] 01 / [id number] [employer] Baseplate Tibial Knee Cemented Left Fixed Stemmed Persona Size D Tivanium [id number] - [id number] 1 - [id number] Implanted:Qty: 1 on 05/04/2023 by Michael Motta MD at [facility] Left: Knee [employer] [id number] 09/11/2032 [id number] / 71-0234-600- 01 / [id number] [employer] Persona 11mm Knee Left 6-7 C-D Insert Articular Vivacit-E Sterile [id number] - [id number] 1 - [id number] Implanted:Qty: 1 on 05/04/2023 by Michael Motta MD at [facility] Left: Knee [employer] [id number] 12/28/2025 [id number] / [id number]- 11 / [id number] [employer] Persona 32mm Knee Component Patellar All Poly Latex Free [id number] - [id number] Implanted:Qty: 1 on 05/04/2023 by Michael Motta MD at [facility] [employer] 12/19/2027 [id number] / / [id number] [employer] Baseplate Tibial Knee Cemented Right Fixed Stemmed Persona Size C Tivanium [id number] - [id number] Implanted:Qty: 1 on 05/30/2024 by Michael Motta MD at [facility] Right: Knee [employer] [id number] 03/22/2033 [id number] / / [id number] [employer] Persona 29mm Knee Component Patellar All Poly Latex Free [id number] - [id number] Implanted:Qty: 1 on 05/30/2024 by Michael Motta MD at [facility] Right: Knee [employer] [id number] 12/18/2028 [id number] / / [id number] [employer] Persona 13mm Cruciate Retain Knee Right 6-7 Cd Insert Articular Latex Free [id number] - [id number] Implanted:Qty: 1 on 05/30/2024 by Michael Motta MD at [facility] Right: Patella [employer] [id number] 05/04/2025 [id number] / / [id number] [employer] Persona Cruciate Retaining Cemented Knee Right 7 Narrow Component [id number] - [id number] Implanted:Qty: 1 on 05/30/2024 by Michael Motta MD at [facility] Right: Knee [employer] [id number] 12/27/2033 [id number] / / [id number] [employer] Persona 14mm 30+ Mm Knee Tibia Taper Extension Stem [id number] - [id number] Implanted:Qty: 1 on 05/30/2024 by Michael Motta MD at [facility] Right: Knee [employer] [id number] 04/11/2034 [id number] / / [id number] Procedures Procedure Name Priority Date/Time Associated Diagnosis Comments COMPREHENSIVE METABOLIC PANEL Routine 08/23/2024 2:11 PM E BUSINESS PROJECT MANAGER Encounter for medication monitoring CBC WITH AUTO DIFFERENTIAL Routine 08/23/2024 2:11 PM E BUSINESS PROJECT MANAGER Encounter for medication monitoring VITAMIN B12 Routine 08/02/2024 7:41 AM E BUSINESS PROJECT MANAGER Fatigue, unspecified type LIPID PANEL Routine 08/02/2024 7:41 AM E BUSINESS PROJECT MANAGER Mixed hyperlipidemia HEMOGLOBIN A1C Routine 08/02/2024 7:41 AM E BUSINESS PROJECT MANAGER Pre-diabetes COMPREHENSIVE METABOLIC PANEL Routine 08/02/2024 7:41 AM E BUSINESS PROJECT MANAGER Mixed hyperlipidemia CBC WITH AUTO DIFFERENTIAL Routine 08/02/2024 7:41 AM E BUSINESS PROJECT MANAGER Fatigue, unspecified type TSH Routine 08/02/2024 7:41 AM E BUSINESS PROJECT MANAGER Fatigue, unspecified type ERYTHROCYTE SEDIMENTATION RATE Routine 07/30/2024 2:36 PM E BUSINESS PROJECT MANAGER Seropositive rheumatoid arthritis of multiple sites ([facility]/HCC) ([facility]) CRP (ACUTE PHASE) Routine 07/30/2024 2:3 6 PM E BUSINESS PROJECT MANAGER Seropositive rheumatoid arthritis of multiple sites ([facility]) ([facility]) COMPREHENSIVE METABOLIC PANEL Routine 07/30/2024 2:36 PM E BUSINESS PROJECT MANAGER Encounter for medication monitoring CBC WITH AUTO DIFFERENTIAL Routine 07/30/2024 2:36 PM E BUSINESS PROJECT MANAGER Encounter for medication monitoring XR KNEE RIGHT 3 VIEWS Schedule Routine, Read Routine (OP Routine) 07/24/2024 1:35 PM E BUSINESS PROJECT MANAGER Status post total knee replacement using cement, right MAGNESIUM Routine 06/14/2024 11:06 AM E BUSINESS PROJECT MANAGER Muscle cramping EGFR Routine 06/05/2024 4:17 AM E BUSINESS PROJECT MANAGER DIFFERENTIAL AUTO Routine 06/05/2024 4:1 7 AM E BUSINESS PROJECT MANAGER CBC WITH AUTO DIFFERENTIAL Routine 06/05/2024 4:17 AM E BUSINESS PROJECT MANAGER BASIC METABOLIC PANEL Routine 06/05/2024 4:17 AM E BUSINESS PROJECT MANAGER EGFR Routine 06/04/2024 3:42 AM E BUSINESS PROJECT MANAGER DIFFERENTIAL AUTO Routine 06/04/2024 3:4 2 AM E BUSINESS PROJECT MANAGER CBC WITH AUTO DIFFERENTIAL Routine 06/04/2024 3:42 AM E BUSINESS PROJECT MANAGER BASIC METABOLIC PANEL Routine 06/04/2024 3:42 AM E BUSINESS PROJECT MANAGER EGFR Routine 06/03/2024 6:18 AM E BUSINESS PROJECT MANAGER DIFFERENTIAL AUTO Routine 06/03/2024 6:1 8 AM E BUSINESS PROJECT MANAGER CBC WITH AUTO DIFFERENTIAL Routine 06/03/2024 6:18 AM E BUSINESS PROJECT MANAGER BASIC METABOLIC PANEL Routine 06/03/2024 6:18 AM E BUSINESS PROJECT MANAGER EGFR Routine 06/02/2024 6:16 AM E BUSINESS PROJECT MANAGER DIFFERENTIAL AUTO Routine 06/02/2024 6:1 6 AM E BUSINESS PROJECT MANAGER CBC WITH AUTO DIFFERENTIAL Routine 06/02/2024 6:16 AM E BUSINESS PROJECT MANAGER BASIC METABOLIC PANEL Routine 06/02/2024 6:16 AM E BUSINESS PROJECT MANAGER DIFFERENTIAL AUTO Routine 06/01/2024 10:53 AM E BUSINESS PROJECT MANAGER CBC WITH AUTO DIFFERENTIAL Routine 06/01/2024 10:53 AM E BUSINESS PROJECT MANAGER EGFR Routine 06/01/2024 8:41 AM E BUSINESS PROJECT MANAGER BASIC METABOLIC PANEL Routine 06/01/2024 8:41 AM E BUSINESS PROJECT MANAGER EGFR Routine 05/31/2024 3:10 AM E BUSINESS PROJECT MANAGER DIFFERENTIAL AUTO Routine 05/31/2024 3:1 0 AM E BUSINESS PROJECT MANAGER CBC WITH AUTO DIFFERENTIAL Routine 05/31/2024 3:10 AM E BUSINESS PROJECT MANAGER BASIC METABOLIC PANEL Routine 05/31/2024 3:10 AM E BUSINESS PROJECT MANAGER [place] AN PROCEDURE PLACEHOLDER Routine 05/30/2024 2:25 PM E BUSINESS PROJECT MANAGER [place] AN PROCEDURE PLACEHOLDER Routine 05/30/2024 2:24 PM E BUSINESS PROJECT MANAGER [place] AN PROCEDURE PLACEHOLDER Routine 05/30/2024 2:23 PM E BUSINESS PROJECT MANAGER [place] AN PROCEDURE PLACEHOLDER Routine 05/30/2024 2:22 PM E BUSINESS PROJECT MANAGER XR KNEE RIGHT 1 OR 2 VIEWS ED Urgent/IP Urgent 05/30/2024 10:52 AM E BUSINESS PROJECT MANAGER [place] AN PROCEDURE PLACEHOLDER Routine 05/30/2024 8:18 AM E BUSINESS PROJECT MANAGER [place] AN PROCEDURE PLACEHOLDER Routine 05/30/2024 8:17 AM E BUSINESS PROJECT MANAGER [place] AN ELECTIVE SUPRAGLOTTIC AIRWAY Routine 05/30/2024 8:17 AM E BUSINESS PROJECT MANAGER ARTHROPLASTY TOTAL KNEE 05/30/2024 7:34 AM E BUSINESS PROJECT MANAGER Primary osteoarthritis of right knee Case Notes RTKA POCUS INJ SCIATIC NERVE IP Routine 05/30/2024 7:13 AM E BUSINESS PROJECT MANAGER POCUS INJ FEMORAL NERVE IP Routine 05/30/2024 7:13 AM E BUSINESS PROJECT MANAGER SCREENING MAMMOGRAM BILATERAL W DYLLAN Schedule Routine, Read Routine (OP Routine) 04/11/2024 7:33 AM CDT Breast cancer screening by mammogram DEXA AXIAL SKELETON BONE DENSITY 1 OR MORE SITES Schedule Routine, Read Routine (OP Routine) 04/12/2023 8:14 AM CDT COLONOSCOPY Routine 07/27/2021 HEPATITIS C ANTIBODY Routine 06/04/2020 10:29 AM E BUSINESS PROJECT MANAGER Encounter for screening for other viral diseases Chronic fatigue from Last 3 Months or Most Recently Relevant to Health Maintenance Results * CBC with auto differential (08/23/2024 2:11 PM E BUSINESS PROJECT MANAGER) WBC 4.8 3.8 - 10.8 Thousand/u L [...] [facility] Blood 08/23/2024 2:11 PM E BUSINESS PROJECT MANAGER 08/23/2024 2:11 PM E BUSINESS PROJECT MANAGER Sangita OSMAN LAB BLOOD ORDERABLES Vy suazo Result [facility] [address] [address] [address] * (ABNORMAL) Comprehensive metabolic panel (08/23/2024 2:11 PM E BUSINESS PROJECT MANAGER) Glucose 188(H) 65 - 99 mg/dL [facility] [...] [facility] Blood 08/23/2024 2:11 PM E BUSINESS PROJECT MANAGER 08/23/2024 2:11 PM E BUSINESS PROJECT MANAGER Sangita OSMAN LAB BLOOD ORDERABLES Vy suazo Result [facility] [address] [address] [address] * (ABNORMAL) CBC with auto differential (08/02/2024 7:41 AM E BUSINESS PROJECT MANAGER) WBC 4.0 3.8 - 10.8 Thousand/u L [...] [facility] Blood 08/02/2024 7:41 AM E BUSINESS PROJECT MANAGER 08/02/2024 7:42 AM E BUSINESS PROJECT MANAGER Alee OSMAN LAB BLOOD ORDERABLES Final Result Performing Organization Address [facility]/ZIP Co de Phone Number [facility] [id number] [place] [phone] * TSH (08/02/2024 7:41 AM E BUSINESS PROJECT MANAGER) Pathologist [facility] TSH 1.57 0.40 - 4.50 mIU/L [facility] Blood 08/02/2024 7:41 AM E BUSINESS PROJECT MANAGER 08/02/2024 7:42 AM E BUSINESS PROJECT MANAGER Alee OSMAN LAB BLOOD ORDERABLES Final Result Performing Organization Address [facility] Phone Number [facility] [address] [place] [phone] * Hemoglobin A1c (08/02/2024 7:41 AM E BUSINESS PROJECT MANAGER) Hgb A1C 5.4 <5.7 % of total Hgb [facility] Comment: For the purpose of screening for the presence of diabetes: <5.7% Consistent with the absence of diabetes 5.7-6.4% Consistent with increased risk for diabetes (prediabetes) > or =6.5% Consistent with diabetes This assay result is consistent with a decreased risk of diabetes. Currently, no consensus exists regarding use of hemoglobin A1c for diagnosis of diabetes in children. According to [place] Diabetes Association (ADA) guidelines, hemoglobin A1c <7.0% represents optimal control in non- diabetic patients. Different metrics may apply to specific patient populations. Standards of Medical Care in Diabetes(ADA). Blood 08/02/2024 7:41 AM E BUSINESS PROJECT MANAGER 08/02/2024 7:42 AM E BUSINESS PROJECT MANAGER Alee OSMAN LAB BLOOD ORDERABLES Final Result Performing Organization Address City/[facility]/ZIP Co de Phone Number [facility] [address] [place] [address] * Vitamin B12 (08/02/2024 7:41 AM E BUSINESS PROJECT MANAGER) Vitamin B12 349 200 - 1,100 pg/mL [...] will have symptoms. Blood 08/02/2024 7:41 AM E BUSINESS PROJECT MANAGER 08/02/2024 7:42 AM E BUSINESS PROJECT MANAGER Alee OSMAN LAB BLOOD ORDERABLES Final Result Performing Organization Address [facility] Co de Phone Number [facility] [address] [place] [address] * Lipid panel (08/02/2024 7:41 AM E BUSINESS PROJECT MANAGER) Cholesterol 127 <200 mg/dL [facility] [...] LDL-C. Barry FREITAS et al. ELAINE. 2013;310(19): 3355-3405 (http://education.Medrobotics/faq/WMU948) Chol/HDL ratio 1.7 <5.0 (calc) [facility] Non-HDL, (LDL+VLDL) 52 <130 mg/dL (calc) [facility] Comment: For patients with diabetes plus 1 major ASCVD risk factor, treating to a non-HDL-C goal of <100 mg/dL (LDL-C of <70 mg/dL) is considered a therapeutic option. Blood 08/02/2024 7:41 AM E BUSINESS PROJECT MANAGER 08/02/2024 7:42 AM E BUSINESS PROJECT MANAGER Alee OSMAN LAB BLOOD ORDERABLES Final Result [facility] [address] [place] [address] * Comprehensive metabolic panel (08/02/2024 7:41 AM E BUSINESS PROJECT MANAGER) Pathologist [facility] Glucose 99 65 - 99 mg/dL [facility] [...] [facility] Blood 08/02/2024 7:41 AM E BUSINESS PROJECT MANAGER 08/02/2024 7:42 AM E BUSINESS PROJECT MANAGER us Alee OSMAN LAB BLOOD ORDERABLES Final Result [facility] [address] [address] [address] * CBC with auto differential (07/30/2024 2:36 PM E BUSINESS PROJECT MANAGER) Pathologist [facility] WBC 6.4 3.8 - 10.8 Thousand/u L [...] [facility] Blood 07/30/2024 2:36 PM E BUSINESS PROJECT MANAGER 07/30/2024 2:36 PM E BUSINESS PROJECT MANAGER Sangita OSMAN LAB BLOOD ORDERABLES Vy l Result Performing Organization Address [facility] de Phone Number [facility] [address] [place] [address] * Erythrocyte sedimentation rate (07/30/2024 2:36 PM E BUSINESS PROJECT MANAGER) Erythrocyte sedimentation rate 11 < OR = 30 mm/h [facility] Blood 07/30/2024 2:36 PM E BUSINESS PROJECT MANAGER 07/30/2024 2:36 PM E BUSINESS PROJECT MANAGER Sangita OSMAN LAB BLOOD ORDERABLES Vy l Result Performing Organization Address [facility] de Phone Number [facility] [address] [place] [address] * CRP (acute phase) (07/30/2024 2:36 PM E BUSINESS PROJECT MANAGER) C-RP <3.0 <8.0 mg/L [facility] Blood 07/30/2024 2:36 PM E BUSINESS PROJECT MANAGER 07/30/2024 2:36 PM E BUSINESS PROJECT MANAGER Sangita OSMAN LAB BLOOD ORDERABLES Vy l Result Performing Organization Address City/[facility] Co de Phone Number [facility] [address] [address] [address] * (ABNORMAL) Comprehensive metabolic panel (07/30/2024 2:36 PM E BUSINESS PROJECT MANAGER) Glucose 115(H) 65 - 99 mg/dL [facility] [...] [facility] Blood 07/30/2024 2:36 PM E BUSINESS PROJECT MANAGER 07/30/2024 2:36 PM E BUSINESS PROJECT MANAGER Sangita OSMAN LAB BLOOD ORDERABLES Vy l Result [facility] [address] [address] [address] * XR Knee Right 3 Views (07/24/2024 1:35 PM E BUSINESS PROJECT MANAGER) Anatomical Region Laterality Modality Lower Extremities, Knee Right Computed Radiography 07/25/2024 7:16 AM E BUSINESS PROJECT MANAGER Narrative 07/25/2024 7:18 AM E BUSINESS PROJECT MANAGER EXAM DESCRIPTION: XR KNEE RIGHT 3 VIEWS [...] signed by Elton CABA T: Report ID: [id number] Reading Location: [id number] Procedure Note Elton Jonas MD - 07/25/2024 [...] Elton Jonas M.D. KR T: Report ID: [id number] Reading Location: [id number] Michael Motta MD IMG XR PROCEDURES Final Re sult * Magnesium (06/14/2024 11:06 AM E BUSINESS PROJECT MANAGER) Magnesium 2.0 1.5 - 2.5 mg/dL [facility] Blood 06/14/2024 11:0 6 AM E BUSINESS PROJECT MANAGER 06/14/2024 11:06 AM E BUSINESS PROJECT MANAGER Artis Grewal MD LAB BLOOD ORDERABLES Final Res ult [facility] [address] [address] [facility] [place] [address] * eGFR (06/05/2024 4:17 AM E BUSINESS PROJECT MANAGER) eGFR 84 >=60 mL/min/1. 73 m2 Comment: [...] last reviewed 2021. Blood 06/05/2024 4:17 AM E BUSINESS PROJECT MANAGER 06/05/2024 5:01 AM E BUSINESS PROJECT MANAGER Michael Motta MD LAB BLOOD ORDERABLES Final Result [facility] [address] [facility] Department [place] [address] * Differential, auto (06/05/2024 4:17 AM E BUSINESS PROJECT MANAGER) Pathologist [facility] Neutrophil abs 3.2 1.5 - 6.5 K/cumm Imm gran abs 0.0 0.0 - 0.1 K/cumm [facility] Lymphocyte abs 0.9 0.8 - 3.3 K/cumm [facility] Monocyte abs 0.7 0.2 - 0.8 K/cumm [facility] Eosinophil abs 0.2 0.0 - 0.5 K/cumm [facility] Basophil abs 0.0 0.0 - 0.1 K/cumm [facility] Neutrophil pct 63.8 % [facility] Comment: Interpretive Data Percent cell count reference ranges are not reported, since discordance with absolute values may lead to misinterpretation of CBC data. Current Interpretive Data was last revised on 2017. Imm gran pct 0.2 % [facility] Comment: Interpretive Data Percent cell count reference ranges are not reported, since discordance with absolute values may lead to misinterpretation of CBC data. Current Interpretive Data was last revised on 2017. Lymphocyte pct 17.1 % [facility] Comment: Interpretive Data Percent cell count reference ranges are not reported, since discordance with absolute values may lead to misinterpretation of CBC data. Current Interpretive Data was last revised on 2017. Monocyte pct 13.9 % [facility] Comment: Interpretive Data Percent cell count reference ranges are not reported, since discordance with absolute values may lead to misinterpretation of CBC data. Current Interpretive Data was last revised on 2017. Eosinophil pct 4.6 % [facility] Comment: Interpretive Data Percent cell count reference ranges are not reported, since discordance with absolute values may lead to misinterpretation of CBC data. Current Interpretive Data was last revised on 2017. Basophil pct 0.4 % [facility] Comment: Interpretive Data Percent cell count reference ranges are not reported, since discordance with absolute values may lead to misinterpretation of CBC data. Current Interpretive Data was last revised on 2017. Blood 06/05/2024 4:17 AM E BUSINESS PROJECT MANAGER 06/05/2024 5:01 AM E BUSINESS PROJECT MANAGER Michael Motta MD LAB BLOOD ORDERABLES Final Result Performing Organization Address [facility] Co de Phone Number [address] [address] * (ABNORMAL) CBC with auto differential (06/05/2024 4:17 AM E BUSINESS PROJECT MANAGER) [facility] WBC 5.0 3.8 - 9.9 K/cumm Hgb 11.2(L) 11.9 - 15.5 g/dL [facility] Hct 34.3(L) 35.6 - 45.5 % [facility] Plt 201 150 - 400 K/cumm [facility] MPV 10.4 9.1 - 12.3 fL [facility] RBC 3.39(L) 3.90 - 5.20 M/cumm [facility] MCV 101.2(H) 81.3 - 96.4 fL [facility] MCH 33.0 27.1 - 33.3 pg [facility] MCHC 32.7 32.3 - 35.7 g/dL [facility] RDW CV 14.1 11.1 - 14.9 % [facility] RDW SD 51.8(H) 35.7 - 48.1 fL [facility] NRBC abs 0.00 0.00 - 0.01 K/cumm [facility] Blood 06/05/2024 4:17 AM E BUSINESS PROJECT MANAGER 06/05/2024 5:01 AM E BUSINESS PROJECT MANAGER Michael Motta MD LAB BLOOD ORDERABLES Final Result Performing Organization Address [facility] Co de Phone Number [address] [place] [address] * Basic metabolic panel (06/05/2024 4:17 AM E BUSINESS PROJECT MANAGER) [facility] Sodium 138 135 - 145 mmol/L Potassium, pl 4.3 3.3 - 4.9 mmol/L [facility] Comment:Hemolyzed; Potassium value may be falsely elevated by as much as 1.0 mmol/L. Suggest redraw and reanalysis. Chloride 105 97 - 110 mmol/L [facility] CO2 24 22 - 32 mmol/L [facility] Anion gap 9 2 - 15 mmol/L [facility] BUN 16 6 - 25 mg/dL [facility] Creatinine 0.77 0.60 - 1.10 mg/dL [facility] Glucose 98 70 - 199 mg/dL [facility] Comment: Interpretive Data Fasting glucose >/= 126 [...] 2022. Calcium 9.5 8.5 - 10.3 mg/dL [facility] Blood 06/05/2024 4:17 AM E BUSINESS PROJECT MANAGER 06/05/2024 5:01 AM E BUSINESS PROJECT MANAGER Michael Motta MD LAB BLOOD ORDERABLES Final Result [facility] [address] [facility] Department [place] [address] * eGFR (06/04/2024 3:42 AM E BUSINESS PROJECT MANAGER) eGFR >90 >=60 mL/min/1. 73 m2 Comment: [...] last reviewed 2021. Blood 06/04/2024 3:42 AM E BUSINESS PROJECT MANAGER 06/04/2024 4:19 AM E BUSINESS PROJECT MANAGER Michael Motta MD LAB BLOOD ORDERABLES Final Result [facility] [address] [facility] Department [place] [address] * Differential, auto (06/04/2024 3:42 AM E BUSINESS PROJECT MANAGER) Neutrophil abs 2.4 1.5 - 6.5 K/cumm Imm gran abs 0.0 0.0 - 0.1 K/cumm [facility] Lymphocyte abs 0.9 0.8 - 3.3 K/cumm [facility] Monocyte abs 0.6 0.2 - 0.8 K/cumm [facility] Eosinophil abs 0.2 0.0 - 0.5 K/cumm [facility] Basophil abs 0.0 0.0 - 0.1 K/cumm [facility] [facility]IN[facility] Neutrophil pct 58.4 % [facility] Comment: Interpretive Data Percent cell count reference ranges are not reported, since discordance with absolute values may lead to misinterpretation of CBC data. Current Interpretive Data was last revised on 2017. Imm gran pct 0.2 % [facility] Comment: Interpretive Data Percent cell count reference ranges are not reported, since discordance with absolute values may lead to misinterpretation of CBC data. Current Interpretive Data was last revised on 2017. Lymphocyte pct 21.0 % [facility] Comment: Interpretive Data Percent cell count reference ranges are not reported, since discordance with absolute values may lead to misinterpretation of CBC data. Current Interpretive Data was last revised on 2017. Monocyte pct 14.3 % [facility] Comment: Interpretive Data Percent cell count reference ranges are not reported, since discordance with absolute values may lead to misinterpretation of CBC data. Current Interpretive Data was last revised on 2017. Eosinophil pct 5.1 % [facility] Comment: Interpretive Data Percent cell count reference ranges are not reported, since discordance with absolute values may lead to misinterpretation of CBC data. Current Interpretive Data was last revised on 2017. Basophil pct 1.0 % [facility] Comment: Interpretive Data Percent cell count reference ranges are not reported, since discordance with absolute values may lead to misinterpretation of CBC data. Current Interpretive Data was last revised on 2017. Blood 06/04/2024 3:42 AM E BUSINESS PROJECT MANAGER 06/04/2024 4:19 AM E BUSINESS PROJECT MANAGER Michael Motta MD LAB BLOOD ORDERABLES Final Result Performing Organization Address City/[facility] Co de Phone Number [address] [place] [address] * (ABNORMAL) CBC with auto differential (06/04/2024 3:42 AM E BUSINESS PROJECT MANAGER) WBC 4.1 3.8 - 9.9 K/cumm Hgb 11.0(L) 11.9 - 15.5 g/dL [facility] Hct 34.3(L) 35.6 - 45.5 % [facility] Plt 180 150 - 400 K/cumm [facility] MPV 10.2 9.1 - 12.3 fL [facility] RBC 3.30(L) 3.90 - 5.20 M/cumm [facility] MCV 103.9(H) 81.3 - 96.4 fL [facility] MCH 33.3 27.1 - 33.3 pg [facility] MCHC 32.1(L) 32.3 - 35.7 g/dL [facility] RDW CV 14.3 11.1 - 14.9 % [facility] RDW SD 54.4(H) 35.7 - 48.1 fL [facility] NRBC abs 0.00 0.00 - 0.01 K/cumm [facility] Blood 06/04/2024 3:42 AM E BUSINESS PROJECT MANAGER 06/04/2024 4:19 AM E BUSINESS PROJECT MANAGER Michael Motta MD LAB BLOOD ORDERABLES Final Result Performing Organization Address City/[facility] Co de Phone Number [address] Department [place] [address] * Basic metabolic panel (06/04/2024 3:42 AM E BUSINESS PROJECT MANAGER) [facility] Sodium 140 135 - 145 mmol/L Potassium, pl 4.1 3.3 - 4.9 mmol/L [facility] Chloride 108 97 - 110 mmol/L [facility] CO2 24 22 - 32 mmol/L [facility] Anion gap 8 2 - 15 mmol/L [facility] BUN 15 6 - 25 mg/dL [facility] Creatinine 0.68 0.60 - 1.10 mg/dL [facility] Glucose 92 70 - 199 mg/dL [facility] Comment: Interpretive Data Fasting glucose >/= 126 [...] 2022. Calcium 8.6 8.5 - 10.3 mg/dL [facility] Blood 06/04/2024 3:42 AM E BUSINESS PROJECT MANAGER 06/04/2024 4:19 AM E BUSINESS PROJECT MANAGER Michael Motta MD LAB BLOOD ORDERABLES Final Result [facility] [address] [facility] Department [place] [address] * eGFR (06/03/2024 6:18 AM E BUSINESS PROJECT MANAGER) [facility] eGFR >90 >=60 mL/min/1. 73 m2 Comment: [...] last reviewed 2021. Blood 06/03/2024 6:18 AM E BUSINESS PROJECT MANAGER 06/03/2024 6:49 AM E BUSINESS PROJECT MANAGER Michael Motta MD LAB BLOOD ORDERABLES Final Result [place] [id number] [facility] Department [place] [address] * (ABNORMAL) Differential, auto (06/03/2024 6:18 AM E BUSINESS PROJECT MANAGER) Neutrophil abs 3.4 1.5 - 6.5 K/cumm Imm gran abs 0.0 0.0 - 0.1 K/cumm [facility] Lymphocyte abs 0.7(L) 0.8 - 3.3 K/cumm [facility] Monocyte abs 0.6 0.2 - 0.8 K/cumm [facility] Eosinophil abs 0.2 0.0 - 0.5 K/cumm [facility] Basophil abs 0.0 0.0 - 0.1 K/cumm [facility] Neutrophil pct 68.6 % [facility] Comment: Interpretive Data Percent cell count reference ranges are not reported, since discordance with absolute values may lead to misinterpretation of CBC data. Current Interpretive Data was last revised on 2017. Imm gran pct 0.2 % [facility] Comment: Interpretive Data Percent cell count reference ranges are not reported, since discordance with absolute values may lead to misinterpretation of CBC data. Current Interpretive Data was last revised on 2017. Lymphocyte pct 14.4 % [facility] Comment: Interpretive Data Percent cell count reference ranges are not reported, since discordance with absolute values may lead to misinterpretation of CBC data. Current Interpretive Data was last revised on 2017. Monocyte pct 11.9 % [facility] Comment: Interpretive Data Percent cell count reference ranges are not reported, since discordance with absolute values may lead to misinterpretation of CBC data. Current Interpretive Data was last revised on 2017. Eosinophil pct 4.3 % [facility] Comment: Interpretive Data Percent cell count reference ranges are not reported, since discordance with absolute values may lead to misinterpretation of CBC data. Current Interpretive Data was last revised on 2017. Basophil pct 0.6 % [facility] Comment: Interpretive Data Percent cell count reference ranges are not reported, since discordance with absolute values may lead to misinterpretation of CBC data. Current Interpretive Data was last revised on 2017. Blood 06/03/2024 6:18 AM E BUSINESS PROJECT MANAGER 06/03/2024 6:48 AM E BUSINESS PROJECT MANAGER Michael Motta MD LAB BLOOD ORDERABLES Final Result [facility] [address] [facility] Department [place] [address] * (ABNORMAL) CBC with auto differential (06/03/2024 6:18 AM E BUSINESS PROJECT MANAGER) WBC 4.9 3.8 - 9.9 K/cumm Hgb 11.2(L) 11.9 - 15.5 g/dL [facility] Hct 34.7(L) 35.6 - 45.5 % [facility] Plt 171 150 - 400 K/cumm [facility] MPV 10.3 9.1 - 12.3 fL [facility] RBC 3.38(L) 3.90 - 5.20 M/cumm [facility] MCV 102.7(H) 81.3 - 96.4 fL [facility] MCH 33.1 27.1 - 33.3 pg [facility] MCHC 32.3 32.3 - 35.7 g/dL [facility] RDW CV 14.6 11.1 - 14.9 % [facility] RDW SD 54.4(H) 35.7 - 48.1 fL [facility] NRBC abs 0.00 0.00 - 0.01 K/cumm [facility] Blood 06/03/2024 6:18 AM E BUSINESS PROJECT MANAGER 06/03/2024 6:48 AM E BUSINESS PROJECT MANAGER Michael Motta MD LAB BLOOD ORDERABLES Final Result Performing Organization Address [facility] de Phone Number [address] [place] [address] * Basic metabolic panel (06/03/2024 6:18 AM E BUSINESS PROJECT MANAGER) [facility] Sodium 139 135 - 145 mmol/L Potassium, pl 4.1 3.3 - 4.9 mmol/L [facility] Chloride 108 97 - 110 mmol/L [facility] CO2 23 22 - 32 mmol/L [facility] Anion gap 8 2 - 15 mmol/L [facility] BUN 15 6 - 25 mg/dL [facility] Creatinine 0.64 0.60 - 1.10 mg/dL [facility] Glucose 103 70 - 199 mg/dL [facility] Comment: Interpretive Data Fasting glucose >/= 126 [...] 2022. Calcium 9.0 8.5 - 10.3 mg/dL [facility] Blood 06/03/2024 6:18 AM E BUSINESS PROJECT MANAGER 06/03/2024 6:49 AM E BUSINESS PROJECT MANAGER Michael Motta MD LAB BLOOD ORDERABLES Final Result Performing Organization Address City/[facility]/ZIP Co de Phone Number [address] [place] [address] * eGFR (06/02/2024 6:16 AM E BUSINESS PROJECT MANAGER) Pathologist [facility] eGFR >90 >=60 mL/min/1. 73 m2 [...] last reviewed 2021. Blood 06/02/2024 6:16 AM E BUSINESS PROJECT MANAGER 06/02/2024 6:50 AM E BUSINESS PROJECT MANAGER Michael Motta MD LAB BLOOD ORDERABLES Final Result [facility] [address] [facility] Department [place] [address] * Differential, auto (06/02/2024 6:16 AM E BUSINESS PROJECT MANAGER) Pathologist [facility] Neutrophil abs 3.9 1.5 - 6.5 K/cumm Imm gran abs 0.0 0.0 - 0.1 K/cumm [facility] Lymphocyte abs 0.8 0.8 - 3.3 K/cumm [facility] Monocyte abs 0.8 0.2 - 0.8 K/cumm [facility] Eosinophil abs 0.1 0.0 - 0.5 K/cumm [facility] Basophil abs 0.0 0.0 - 0.1 K/cumm [facility] Neutrophil pct 69.0 % [facility] Comment: Interpretive Data Percent cell count reference ranges are not reported, since discordance with absolute values may lead to misinterpretation of CBC data. Current Interpretive Data was last revised on 2017. Imm gran pct 0.4 % [facility] Comment: Interpretive Data Percent cell count reference ranges are not reported, since discordance with absolute values may lead to misinterpretation of CBC data. Current Interpretive Data was last revised on 2017. Lymphocyte pct 14.3 % [facility] Comment: Interpretive Data Percent cell count reference ranges are not reported, since discordance with absolute values may lead to misinterpretation of CBC data. Current Interpretive Data was last revised on 2017. Monocyte pct 14.0 % [facility] Comment: Interpretive Data Percent cell count reference ranges are not reported, since discordance with absolute values may lead to misinterpretation of CBC data. Current Interpretive Data was last revised on 2017. Eosinophil pct 1.9 % [facility] Comment: Interpretive Data Percent cell count reference ranges are not reported, since discordance with absolute values may lead to misinterpretation of CBC data. Current Interpretive Data was last revised on 2017. Basophil pct 0.4 % [facility] Comment: Interpretive Data Percent cell count reference ranges are not reported, since discordance with absolute values may lead to misinterpretation of CBC data. Current Interpretive Data was last revised on 2017. Blood 06/02/2024 6:16 AM E BUSINESS PROJECT MANAGER 06/02/2024 6:51 AM E BUSINESS PROJECT MANAGER us Michael Motta MD LAB BLOOD ORDERABLES Final Result [facility] [address] [facility] Department [place] [address] * (ABNORMAL) CBC with auto differential (06/02/2024 6:16 AM E BUSINESS PROJECT MANAGER) WBC 5.7 3.8 - 9.9 K/cumm Hgb 10.9(L) 11.9 - 15.5 g/dL [facility] Hct 34.9(L) 35.6 - 45.5 % [facility] Plt 134(L) 150 - 400 K/cumm [facility] MPV 10.7 9.1 - 12.3 fL [facility] RBC 3.30(L) 3.90 - 5.20 M/cumm [facility] MCV 105.8(H) 81.3 - 96.4 fL [facility] MCH 33.0 27.1 - 33.3 pg [facility] MCHC 31.2(L) 32.3 - 35.7 g/dL [facility] RDW CV 14.7 11.1 - 14.9 % [facility] RDW SD 57.2(H) 35.7 - 48.1 fL [facility] NRBC abs 0.00 0.00 - 0.01 K/cumm [facility] Blood 06/02/2024 6:16 AM E BUSINESS PROJECT MANAGER 06/02/2024 6:51 AM E BUSINESS PROJECT MANAGER Michael Motta MD LAB BLOOD ORDERABLES Final Result [facility] [address] [facility] Department [place] [address] * (ABNORMAL) Basic metabolic panel (06/02/2024 6:16 AM E BUSINESS PROJECT MANAGER) Sodium 138 135 - 145 mmol/L Potassium, pl 4.5 3.3 - 4.9 mmol/L [facility] Comment:Hemolyzed; Potassium value may be falsely elevated by as much as 1.0 mmol/L. Suggest redraw and reanalysis. Chloride 109 97 - 110 mmol/L [facility] CO2 20(L) 22 - 32 mmol/L [facility] Anion gap 9 2 - 15 mmol/L [facility] BUN 16 6 - 25 mg/dL [facility] Creatinine 0.67 0.60 - 1.10 mg/dL [facility] Glucose 87 70 - 199 mg/dL [facility] Comment: Interpretive Data Fasting glucose >/= 126 [...] 2022. Calcium 7.9(L) 8.5 - 10.3 mg/dL [facility] Blood 06/02/2024 6:16 AM E BUSINESS PROJECT MANAGER 06/02/2024 6:50 AM E BUSINESS PROJECT MANAGER Michael Motta MD LAB BLOOD ORDERABLES Final Result [facility] [address] [facility] Department [place] [address] * (ABNORMAL) Differential, auto (06/01/2024 10:53 AM E BUSINESS PROJECT MANAGER) Neutrophil abs 4.3 1.5 - 6.5 K/cumm Imm gran abs 0.0 0.0 - 0.1 K/cumm [facility] Lymphocyte abs 1.1 0.8 - 3.3 K/cumm [facility] Monocyte abs 1.0(H) 0.2 - 0.8 K/cumm [facility] Eosinophil abs 0.1 0.0 - 0.5 K/cumm [facility] Basophil abs 0.0 0.0 - 0.1 K/cumm [facility] Neutrophil pct 65.4 % [facility] Comment: Interpretive Data Percent cell count reference ranges are not reported, since discordance with absolute values may lead to misinterpretation of CBC data. Current Interpretive Data was last revised on 2017. Imm gran pct 0.3 % [facility] Comment: Interpretive Data Percent cell count reference ranges are not reported, since discordance with absolute values may lead to misinterpretation of CBC data. Current Interpretive Data was last revised on 2017. Lymphocyte pct 17.4 % [facility] Comment: Interpretive Data Percent cell count reference ranges are not reported, since discordance with absolute values may lead to misinterpretation of CBC data. Current Interpretive Data was last revised on 2017. Monocyte pct 15.2 % [facility] Comment: Interpretive Data Percent cell count reference ranges are not reported, since discordance with absolute values may lead to misinterpretation of CBC data. Current Interpretive Data was last revised on 2017. Eosinophil pct 1.2 % [facility] Comment: Interpretive Data Percent cell count reference ranges are not reported, since discordance with absolute values may lead to misinterpretation of CBC data. Current Interpretive Data was last revised on 2017. Basophil pct 0.5 % [facility] Comment: Interpretive Data Percent cell count reference ranges are not reported, since discordance with absolute values may lead to misinterpretation of CBC data. Current Interpretive Data was last revised on 2017. Blood 06/01/2024 10:5 3 AM E BUSINESS PROJECT MANAGER 06/01/2024 10:58 AM E BUSINESS PROJECT MANAGER us Michael Motta MD LAB BLOOD ORDERABLES Final Result Performing Organization Address City/[facility]/ZIP Co de Phone Number [facility] [address] [facility] Department [place] [address] * (ABNORMAL) CBC with auto differential (06/01/2024 10:53 AM E BUSINESS PROJECT MANAGER) WBC 6.6 3.8 - 9.9 K/cumm Hgb 10.6(L) 11.9 - 15.5 g/dL [facility] Hct 32.6(L) 35.6 - 45.5 % [facility] Plt 156 150 - 400 K/cumm [facility] MPV 10.1 9.1 - 12.3 fL [facility] RBC 3.21(L) 3.90 - 5.20 M/cumm [facility] MCV 101.6(H) 81.3 - 96.4 fL [facility] MCH 33.0 27.1 - 33.3 pg [facility] MCHC 32.5 32.3 - 35.7 g/dL [facility] RDW CV 14.5 11.1 - 14.9 % [facility] RDW SD 53.6(H) 35.7 - 48.1 fL [facility] NRBC abs 0.00 0.00 - 0.01 K/cumm [facility] Blood 06/01/2024 10:5 3 AM E BUSINESS PROJECT MANAGER 06/01/2024 10:58 AM E BUSINESS PROJECT MANAGER Michael Motta MD LAB BLOOD ORDERABLES Final Result Performing Organization Address City/[facility]/ZIP Co de Phone Number [facility] Department [place] [address] * eGFR (06/01/2024 8:41 AM E BUSINESS PROJECT MANAGER) [facility] eGFR >90 >=60 mL/min/1. 73 m2 Comment: [...] last reviewed 2021. Blood 06/01/2024 8:41 AM E BUSINESS PROJECT MANAGER 06/01/2024 8:45 AM E BUSINESS PROJECT MANAGER Michael Motta MD LAB BLOOD ORDERABLES Final Result [facility] [address] Department [place] [address] * (ABNORMAL) Basic metabolic panel (06/01/2024 8:41 AM E BUSINESS PROJECT MANAGER) [facility] Sodium 139 135 - 145 mmol/L Potassium, pl 4.1 3.3 - 4.9 mmol/L [facility] Chloride 111(H) 97 - 110 mmol/L [facility] CO2 21(L) 22 - 32 mmol/L [facility] Anion gap 7 2 - 15 mmol/L [facility] BUN 20 6 - 25 mg/dL [facility] Creatinine 0.64 0.60 - 1.10 mg/dL [facility] Glucose 107 70 - 199 mg/dL [facility] Comment: Interpretive Data Fasting glucose >/= 126 [...] mg/dL [facility] Blood 06/01/2024 8:41 AM E BUSINESS PROJECT MANAGER 06/01/2024 8:45 AM E BUSINESS PROJECT MANAGER Michael Motta MD LAB BLOOD ORDERABLES Final Result [facility] [address] [facility] Department [place] [address] * eGFR (05/31/2024 3:10 AM E BUSINESS PROJECT MANAGER) eGFR >90 >=60 mL/min/1. 73 m2 Comment: [...] last reviewed 2021. Blood 05/31/2024 3:10 AM E BUSINESS PROJECT MANAGER 05/31/2024 3:28 AM E BUSINESS PROJECT MANAGER Michael Motta MD LAB BLOOD ORDERABLES Final Result [facility] [address] [facility] Department [place] [address] * (ABNORMAL) Differential, auto (05/31/2024 3:10 AM E BUSINESS PROJECT MANAGER) Neutrophil abs 8.1(H) 1.5 - 6.5 K/cumm Imm gran abs 0.0 0.0 - 0.1 K/cumm [facility] Lymphocyte abs 0.4(L) 0.8 - 3.3 K/cumm [facility] Monocyte abs 0.4 0.2 - 0.8 K/cumm [facility] Eosinophil abs 0.0 0.0 - 0.5 K/cumm [facility] Basophil abs 0.0 0.0 - 0.1 K/cumm [facility] Neutrophil pct 91.1 % [facility] Comment: Interpretive Data Percent cell count reference ranges are not reported, since discordance with absolute values may lead to misinterpretation of CBC data. Current Interpretive Data was last revised on 2017. Imm gran pct 0.3 % [facility] Comment: Interpretive Data Percent cell count reference ranges are not reported, since discordance with absolute values may lead to misinterpretation of CBC data. Current Interpretive Data was last revised on 2017. Lymphocyte pct 4.0 % [facility] Comment: Interpretive Data Percent cell count reference ranges are not reported, since discordance with absolute values may lead to misinterpretation of CBC data. Current Interpretive Data was last revised on 2017. Monocyte pct 4.4 % [facility] Comment: Interpretive Data Percent cell count reference ranges are not reported, since discordance with absolute values may lead to misinterpretation of CBC data. Current Interpretive Data was last revised on 2017. Eosinophil pct 0.1 % [facility] Comment: Interpretive Data Percent cell count reference ranges are not reported, since discordance with absolute values may lead to misinterpretation of CBC data. Current Interpretive Data was last revised on 2017. Basophil pct 0.1 % [facility] Comment: Interpretive Data Percent cell count reference ranges are not reported, since discordance with absolute values may lead to misinterpretation of CBC data. Current Interpretive Data was last revised on 2017. Blood 05/31/2024 3:10 AM E BUSINESS PROJECT MANAGER 05/31/2024 3:28 AM E BUSINESS PROJECT MANAGER Michael Motta MD LAB BLOOD ORDERABLES Final Result Performing Organization Address City/[facility] Co de Phone Number [facility] [address] [place] [address] * (ABNORMAL) CBC with auto differential (05/31/2024 3:10 AM E BUSINESS PROJECT MANAGER) Pathologist [facility] WBC 8.9 3.8 - 9.9 K/cumm Hgb 11.9 11.9 - 15.5 g/dL [facility] Hct 36.5 35.6 - 45.5 % [facility] Plt 154 150 - 400 K/cumm [facility] MPV 9.8 9.1 - 12.3 fL [facility] RBC 3.53(L) 3.90 - 5.20 M/cumm [facility] MCV 103.4(H) 81.3 - 96.4 fL [facility] MCH 33.7(H) 27.1 - 33.3 pg [facility] MCHC 32.6 32.3 - 35.7 g/dL [facility] RDW CV 14.5 11.1 - 14.9 % [facility] RDW SD 54.6(H) 35.7 - 48.1 fL [facility] NRBC abs 0.00 0.00 - 0.01 K/cumm [facility] Blood 05/31/2024 3:10 AM E BUSINESS PROJECT MANAGER 05/31/2024 3:28 AM E BUSINESS PROJECT MANAGER Michael Motta MD LAB BLOOD ORDERABLES Final Result Performing Organization Address City/[facility]/ZIP Co de Phone Number [facility] [address] [address] * (ABNORMAL) Basic metabolic panel (05/31/2024 3:10 AM E BUSINESS PROJECT MANAGER) Sodium 138 135 - 145 mmol/L Potassium, pl 4.5 3.3 - 4.9 mmol/L [facility] Chloride 111(H) 97 - 110 mmol/L [facility] CO2 21(L) 22 - 32 mmol/L [facility] Anion gap 6 2 - 15 mmol/L [facility] BUN 13 6 - 25 mg/dL [facility] Creatinine 0.60 0.60 - 1.10 mg/dL [facility] Glucose 139 70 - 199 mg/dL [facility] Comment: Interpretive Data Fasting glucose >/= 126 [...] 2022. Calcium 8.8 8.5 - 10.3 mg/dL [facility] Blood 05/31/2024 3:10 AM E BUSINESS PROJECT MANAGER 05/31/2024 3:28 AM E BUSINESS PROJECT MANAGER Michael Motta MD LAB BLOOD ORDERABLES Final Result Performing Organization Address City/State/[facility] Co de Phone Number [facility] [address] [facility] Department [place] [address] * [place] AN PROCEDURE PLACEHOLDER (05/30/2024 2:25 PM E BUSINESS PROJECT MANAGER) Narrative Karen Olmstead MD - 05/30/2024 2:25 PM E BUSINESS PROJECT MANAGER Karen Olmstead MD 05/30/2024 2:25 PM Peripheral [...] Olmstead MD ANESTHESIA ORDERABLES Final Result * [place] AN PROCEDURE PLACEHOLDER (05/30/2024 2:24 PM E BUSINESS PROJECT MANAGER) Karen Churchill MD - 05/30/2024 2:24 PM E BUSINESS PROJECT MANAGER Karen Olmstead MD 05/30/2024 2:24 PM Peripheral [...] Olmstead MD ANESTHESIA ORDERABLES Final Result * [place] AN PROCEDURE PLACEHOLDER (05/30/2024 2:23 PM E BUSINESS PROJECT MANAGER) Karen Churchill MD - 05/30/2024 2:23 PM E BUSINESS PROJECT MANAGER Karen Olmstead MD 05/30/2024 2:24 PM Peripheral [...] ANESTHESIA ORDERABLES Edited Result - Final * [place] AN PROCEDURE PLACEHOLDER (05/30/2024 2:22 PM E BUSINESS PROJECT MANAGER) Narrative Karen Olmstead MD - 05/30/2024 2:22 PM [facility] Karen Olmstead MD 05/30/2024 2:24 PM Peripheral [...] 1 or 2 View (05/30/2024 10:52 AM E BUSINESS PROJECT MANAGER) Anatomical Region Laterality Modality Lower Extremities, Knee Right Computed Radiography 05/30/2024 11:3 8 AM E BUSINESS PROJECT MANAGER Narrative 05/30/2024 11:40 AM E BUSINESS PROJECT MANAGER EXAM DESCRIPTION: XR KNEE RIGHT 1 OR [...] signed by Anjum YARBROUGH T: Report ID: [id number] Reading Location: [id number] Procedure Note Anjum Chino MD - 05/30/2024 [...] signed by Anjum YARBROUGH T: Report ID: [id number] Reading Location: [place] [address] Michael Motta MD IMG XR PROCEDURES Final Re sult * [place] AN PROCEDURE PLACEHOLDER (05/30/2024 8:18 AM E BUSINESS PROJECT MANAGER) Urban Monroe CRNA - 05/30/2024 8:18 AM E BUSINESS PROJECT MANAGER Urban Davison CRNA 05/30/2024 8:19 AM Peripheral [...] tolerated procedure well with no complications Result [facility] Karen Olmstead MD ANESTHESIA ORDERABLES Final Result * [place] AN ELECTIVE SUPRAGLOTTIC AIRWAY, [place] AN PROCEDURE PLACEHOLDER (05/30/2024 8:17 AM E BUSINESS PROJECT MANAGER) Urban Monroe CRNA - 05/30/2024 8:17 AM E BUSINESS PROJECT MANAGER Urban Davison CRNA 05/30/2024 8:18 AM Airway Patient location: OR Urgency: elective Indications for airway management: anesthesia Difficult airway: no Staff: Placed by: SENIOR ETL DEVELOPER: Urban Davison CRNA Emergent airway documentation: Risks [...] POCUS INJ SCIATIC NERVE (05/30/2024 7:13 AM E BUSINESS PROJECT MANAGER) Narrative [id number] - 05/30/2024 7:13 AM E BUSINESS PROJECT MANAGER This procedure was performed and interpreted by the provider. Please refer to the provider's procedure/OR operative note for results. Michael Motta MD POCUS ORDERABLES Final Res ult Performing Organization Address [facility] de Phone Number [email or web address] * POCUS INJ FEMORAL NERVE (05/30/2024 7:13 AM E BUSINESS PROJECT MANAGER) Narrative [email or web address] - 05/30/2024 7:13 AM E BUSINESS PROJECT MANAGER This procedure was performed and interpreted by the provider. Please refer to the provider's procedure/OR operative note for results. Michael Motta MD POCUS ORDERABLES Final Res ult Performing Organization Address [facility] de Phone Number RAD_PACS_POCUS_[facility] * Screening [...] * Hepatitis C antibody (06/04/2020 10:29 AM E BUSINESS PROJECT MANAGER) Hep C Ab NON-REACTI VE NON-REACT ALEXYS [facility] SIGNAL TO CUT-OFF 0.02 <1.00 [facility] Comment: HCV antibody was non-reactive. There is no laboratory evidence of HCV infection. In most cases, no further action is required. However, if recent HCV exposure is suspected, a test for HCV RNA (test code 22097) is suggested. For additional information please refer to http://education.[employer]/faq/AFW11i3 (This link is being provided for informational/ educational purposes only.) Blood specimen (specimen) 06/04/2020 10:29 AM E BUSINESS PROJECT MANAGER 06/04/2020 10:30 AM E BUSINESS PROJECT MANAGER [facility] MICRO[facility] - GENERA L ORDERABLES Final Result [facility] [address] [place] [address] from Last 3 Months or Most Recently Relevant to Health Maintenance Insurance [facility] Member Subscriber Plan / Payer (Ef fective 2019-Present) Name:Hany Roy Relation to Subscriber:Self Name:Hany Roy Payer ID:[id number] (NAIC) Type:MEDICARE RISK OTHER Address: [address] [facility] Advance Directives For more information, please contact: [phone] Documents on File Type Date Recorded Patient Physics Technical Officer Expl anation ADVANCE DIRECTIVE 05/17/2024 2:13 PM Yonis r of Rectification Printer-Medical * Full Code (Latest Code Status on File) Date Activated Date Inactivated Comments 05/30/2024 12:38 PM 06/05/2024 6:31 PM * Full Code Date Activated Date Inactivated Comments 05/04/2023 2:33 PM 05/07/2023 3:07 AM * Full Code Date Activated Date Inactivated Comments 03/22/2021 4:39 PM 03/25/2021 6:17 PM Care Teams Loan Approver Relationship Specialty Start Date End Date Alee Elizondo PA [address] [place], [place] [id number] PCP - General Internal Medicine 07/05/23 Sharan Linton MD Referring Physician Gastroenterology 10/31/18 Martha Starks MD Consulting Physician Cardiology 12/24/20 Shama Hines MD [address] [facility] [address] [place] [address] Consulting Physician Pain Management 01/19/21 Artis Grewal MD [address] [place] [address] Consulting Physician Rheumatology 01/30/21 Amy Mayes NP [address] [facility] [address] [place] [address] Nurse Practitioner Cardiovascular Disease 04/20/24 Shailesh Dunn MD [address] [facility] [address] [place] [address] Consulting Physician Pulmonary Disease 04/20/24 Sangita Farrar PA [address] [place] [address] Physician Cms Expert Rheumatology 05/15/24
--- OUTSIDE RECORDS SUMMARY | 2024-08-29 23:12 | XMS_ITS | Encounter Summary ---
Author Organization [facility] Healthcare Address [address] [place] [address] Care Team Providers Care Copper Plate Printer Name Role Phone Sharan Linton MD Unavailable [phone] Marhta Starks MD Unavailable [phone] Shama Hines MD Unavailable Artis Grewal MD Unavailable [phone] Alee Elizondo Primary Care Provider [phone] Amy Mayes NP Unavailable [phone] Shailesh Dunn MD Unavailable [phone] Sangita Farrar Unavailable [phone] Encounter Details Date Type Department Care Team (Late st Contact Info) Description 12/08/2023 [place] Only [facility] [place] [address] [place] [id number] Scanning, Provider Social History Tobacco Use Types Packs/Day Years Used Date Smoking Tobacco: Never Smokeless Tobacco: Never Comments:Never used Alcohol Use Standard Drinks/Week Comments No 0 (1 standard drink = 0.6 oz pur e alcohol) [facility] Utilities Answer Date Recorded In [...] often do you attend chur ch or druze services? More than 4 times per year 05/27/2023 Do you belong to any clubs o r organizations such as confucianist groups, unions, fraternal or athletic groups, or [...] place to sleep or slept in a intermediate (including now)? No 05/27/2023 Personal Safety Answer Date Recorded Have you ever been in or are you currently in a harmful physical or emotional relationship or is someone making you feel afraid or unsafe? Denies 06/02/2023 Comments No Sex and Gender Information Value Date Recorded Sex Assigned at Not on file Legal Sex Female 8:04 PM PERSONAL DEVELOPMENT EDUCATOR Gender Identity Female 02/15/2020 6:08 PM CDT [...] on filedocumented in this encounter Care Teams Copper Plate Printer Relationship Specialty Start Date End Date Alee Elizondo PA [address] [place] [address] PCP - General Internal Medicine 07/05/23 Sharan Linton MD Referring Physician Gastroenterology 10/31/18 Martha Starks MD Consulting Physician Cardiology 12/24/20 Shama Hines MD [address] [facility] [address] [place] [address] Consulting Physician Pain Management 01/19/21 Artis Grewal MD [address] [place] [address] Consulting Physician Rheumatology 01/30/21 Amy Mayes NP [address] [address] Nurse Practitioner Cardiovascular Disease 04/20/24 Shailesh Dunn MD [address] [address] Consulting Physician Pulmonary Disease 04/20/24 Sangita Farrar PA [address] [place] [address] Physician Fitness Specialist Rheumatology 05/15/24 documented as of this encounter
--- OUTSIDE RECORDS SUMMARY | 2024-08-29 23:12 | XMS_ITS | Clinical Summary ---
Author Organization [facility] [address] Address [address] [place] [address] Care Team Providers Care Accounts Receivable Processor Name Role Phone Sharan Linton MD Unavailable [phone] Martha Starks MD Unavailable Shama Hines MD Unavailable Artis Grewal MD Unavailable [phone] Alee Elizondo Primary Care Provider [phone] Amy Mayes NP Unavailable Shailesh Dunn MD Unavailable [phone] Sangita Farrar Unavailable Allergies Active Allergy Reactions [...] 05/07/20 Assessment & Plan (05/07/2024 8:57 PM SUPERVISOR PLATING AND POINT ASSEMBLY): I have examined this patient and ordered [...] She has had evaluation by Urology at [facility] and has been told there is probably [...] 08/03/2023 Assessment & Plan (05/07/2024 8:56 PM SUPERVISOR PLATING AND POINT ASSEMBLY): Discussed the patient's BMI. The BMI is [...] provided. Assessment & Plan (09/06/2023 9:38 AM SUPERVISOR PLATING AND POINT ASSEMBLY): Discussed the patient's BMI. The BMI is above average. BMI management plan is completed. BMI Follow-up includes: nutrition counseling, exercise counseling and education provided. Patient has an obesity-related condition (not limited to: hypertension, obstructive sleep apnea, osteoarthritis, hyperlipidemia, diabetes, etc.). Therefore, morbid obesity may be documented for patients with a BMI between 35.00-39.99. Assessment & Plan (08/07/2023 7:51 PM SUPERVISOR PLATING AND POINT ASSEMBLY): Discussed the patient's BMI. The BMI is above average. BMI management plan is completed. BMI Follow-up includes: nutrition counseling, exercise counseling and education provided. Patient has an obesity-related condition (not limited to: hypertension, obstructive sleep apnea, osteoarthritis, hyperlipidemia, diabetes, etc.). Therefore, morbid obesity may be documented for patients with a BMI between 35.00-39.99. Assessment & Plan (08/03/2023 7:45 AM SUPERVISOR PLATING AND POINT ASSEMBLY): Discussed the patient's BMI. The BMI is above average. BMI management plan is completed. BMI Follow-up includes: nutrition counseling, exercise counseling and education provided. Primary osteoarthritis of right knee 07/08/2023 Assessment & Plan (05/07/2024 8:56 PM SUPERVISOR PLATING AND POINT ASSEMBLY): Patient has arthritis in the right knee. Planning a total knee replacement with Dr. Alexus Motta on May 30 Assessment & Plan (08/03/2023 8:28 AM SUPERVISOR PLATING AND POINT ASSEMBLY): Continue per ortho. She is seeing some improvement but it is difficult to know if the knee is rheumatoid versus osteo versus other etiology. Will await recommendations from JACQUI Raya but definitely encouraged her to become active as soon as possible. Status post total knee replacement using cement, right 05/19/2023 Assessment & Plan (06/02/2023 4:56 PM SUPERVISOR PLATING AND POINT ASSEMBLY): Status post total knee replacement with Dr. Ge Sexton 04 May. She has just been released from rehab following up for her TCM visit. She appears to have an area of cellulitis at the incision site. She is also complaining of increased pain. Will check CBC CMP and inflammatory markers along with an x-ray. She plans to go to [facility] for the workup. Will follow up with [...] provided. Assessment & Plan (06/02/2023 8:27 AM SUPERVISOR PLATING AND POINT ASSEMBLY): Discussed the patients BMI: The BMI is [...] 12/20/2022 Assessment & Plan (05/07/2024 8:55 PM SUPERVISOR PLATING AND POINT ASSEMBLY): Patient is on medication for her rheumatoid arthritis managed by [facility] Assessment & Plan (01/22/2024 8:13 PM CDT): Medications from [facility] contribute to her immunosuppressive state. Assessment & Plan (09/06/2023 9:41 AM SUPERVISOR PLATING AND POINT ASSEMBLY): Medications are managed by [facility] for her rheumatoid arthritis Assessment & Plan (04/06/2023 7:44 PM CDT): Managed by [facility]. Currently on Plaquenil methotrexate Orencia folic [...] She has had evaluation by Urology at [facility] and has been told there is probably [...] capacity. Assessment & Plan (09/06/2023 9:41 AM SUPERVISOR PLATING AND POINT ASSEMBLY): Continue per . She did not tolerate [...] Pate. Assessment & Plan (07/18/2022 10:20 AM SUPERVISOR PLATING AND POINT ASSEMBLY): CT revealed pelvic lipomatosis that is compressing [...] 02/11/2022 Assessment & Plan (09/06/2023 9:41 AM SUPERVISOR PLATING AND POINT ASSEMBLY): No change. Dysfunction of both eustachian tubes 02/11/2022 Myalgia, lower leg 01/11/2022 PLMD (periodic limb movement disorder) Assessment & Plan (08/02/2024 11:49 AM SUPERVISOR PLATING AND POINT ASSEMBLY): Asymptomatic Assessment & Plan (06/22/2022 10:31 AM SUPERVISOR PLATING AND POINT ASSEMBLY): Will continue Requip 1 mg nightly Assessment [...] bedtime. Assessment & Plan (07/13/2021 11:25 AM SUPERVISOR PLATING AND POINT ASSEMBLY): Due to the patient stating that she [...] 06/04/2020 Assessment & Plan (08/23/2024 10:16 AM SUPERVISOR PLATING AND POINT ASSEMBLY): Hepatitis negative 06/2020 Tspot negative 06/2020 Continue routine lab monitoring Maintain routine eye exams throughout the duration of taking hydroxychloroquine Assessment & Plan (07/30/2024 8:24 AM SUPERVISOR PLATING AND POINT ASSEMBLY): Hepatitis negative 06/2020 Tspot negative 06/2020 Continue [...] hydroxychloroquine Assessment & Plan (09/01/2023 8:34 AM SUPERVISOR PLATING AND POINT ASSEMBLY): Hepatitis negative 06/2020 Tspot negative 06/2020 Continue routine lab monitoring Maintain routine eye exams throughout the duration of taking hydroxychloroquine Assessment & Plan (06/29/2023 2:19 PM SUPERVISOR PLATING AND POINT ASSEMBLY): Hepatitis negative 06/2020 Tspot negative 06/2020 Continue [...] hydroxychloroquine Assessment & Plan (07/14/2022 2:58 PM SUPERVISOR PLATING AND POINT ASSEMBLY): Hepatitis negative 06/2020 Tspot negative 06/2020 Continue routine lab monitoring Maintain routine eye exams throughout the duration of taking hydroxychloroquine Assessment & Plan (06/03/2022 9:58 AM SUPERVISOR PLATING AND POINT ASSEMBLY): Hepatitis negative 06/2020 Tspot negative 06/2020 Continue [...] hydroxychloroquine Assessment & Plan (09/03/2021 8:29 AM SUPERVISOR PLATING AND POINT ASSEMBLY): Hepatitis negative 06/2020 Tspot negative 06/2020 Continue routine lab monitoring Maintain routine eye exams throughout the duration of taking hydroxychloroquine Assessment & Plan (06/03/2021 4:17 PM SUPERVISOR PLATING AND POINT ASSEMBLY): Hepatitis negative 06/2020 Tspot negative 06/2020 Continue [...] hydroxychloroquine Assessment & Plan (09/02/2020 1:16 PM SUPERVISOR PLATING AND POINT ASSEMBLY): Hepatitis negative 06/2020 Tspot negative 06/2020 Continue routine lab monitoring Maintain routine eye exams throughout the duration of taking hydroxychloroquine Assessment & Plan (07/09/2020 12:23 PM SUPERVISOR PLATING AND POINT ASSEMBLY): Hepatitis negative 06/2020 Tspot negative 06/2020 Continue routine lab monitoring Maintain routine eye exams throughout the duration of taking hydroxychloroquine Drug-induced constipation 08/13/2019 Assessment & Plan (05/07/2024 8:54 PM SUPERVISOR PLATING AND POINT ASSEMBLY): Patient with chronic constipation. Has been on [...] linzess Assessment & Plan (08/13/2019 8:57 AM SUPERVISOR PLATING AND POINT ASSEMBLY): On Movantik with Dr. Soto Herpes zoster without complication 12/13/2018 Assessment & Plan (12/23/2018 10:18 PM CDT): Valtex to pharmacy. She has had shingles in the past. Pre-diabetes 10/31/2018 Assessment & Plan (05/07/2024 8:55 PM SUPERVISOR PLATING AND POINT ASSEMBLY): Pre-diabetes/hyperglycemia is a precursor to Dm. Stressed [...] diabetes. Assessment & Plan (09/06/2023 9:40 AM SUPERVISOR PLATING AND POINT ASSEMBLY): Pre-diabetes/hyperglycemia is a precursor to Dm. Stressed [...] diabetes. Assessment & Plan (09/11/2021 11:22 PM SUPERVISOR PLATING AND POINT ASSEMBLY): Pre-diabetes/hyperglycemia is a precursor to Dm. Stressed importance of working on diet (decrease your simple sugars and one carbohydrate with each meal) and increase you exercise to achieve weight loss and this will help prevent you from progressing to diabetes. Assessment & Plan (05/29/2021 8:18 PM SUPERVISOR PLATING AND POINT ASSEMBLY): Pre-diabetes/hyperglycemia is a precursor to Dm. Stressed [...] diabetes. Assessment & Plan (08/31/2020 9:34 AM SUPERVISOR PLATING AND POINT ASSEMBLY): Pre-diabetes is a precursor to Dm. Stressed [...] diabetes. Assessment & Plan (08/13/2019 9:00 AM SUPERVISOR PLATING AND POINT ASSEMBLY): This is a significant, separately identifiable problem [...] 10/31/2018 Assessment & Plan (05/07/2024 8:54 PM SUPERVISOR PLATING AND POINT ASSEMBLY): Depression symptoms are stable with Wellbutrin XL 150 Cymbalta 60 b.i.d. Assessment & Plan (04/21/2024 8:50 PM CDT): Depression symptoms are stable with the Wellbutrin XL 150 and Cymbalta 60 b.i.d. Assessment & Plan (01/22/2024 8:11 PM CDT): Depression symptoms are stable with Wellbutrin and Cymbalta Assessment & Plan (09/06/2023 9:40 AM SUPERVISOR PLATING AND POINT ASSEMBLY): Depression is stable with Wellbutrin and Cymbalta Assessment & Plan (08/03/2023 8:31 AM SUPERVISOR PLATING AND POINT ASSEMBLY): Stable with Cymbalta 60 and Wellbutrin XL [...] Cymbalta Assessment & Plan (09/11/2021 11:26 PM SUPERVISOR PLATING AND POINT ASSEMBLY): Continue Wellbutrin and Cymbalta Assessment & Plan (05/29/2021 8:22 PM SUPERVISOR PLATING AND POINT ASSEMBLY): Continue Wellbutrin and Cymbalta Assessment & Plan (05/24/2021 10:39 AM SUPERVISOR PLATING AND POINT ASSEMBLY): Continue Wellbutrin and Cymbalta Assessment & Plan (12/24/2020 9:07 AM CDT): Continue wellbutrin and cymbalta Assessment & Plan (08/31/2020 9:35 AM SUPERVISOR PLATING AND POINT ASSEMBLY): Continue wellbutrin and cymbalta Assessment & Plan (02/18/2020 9:47 PM CDT): Stable with the Cymbalata Assessment & Plan (08/13/2019 8:59 AM SUPERVISOR PLATING AND POINT ASSEMBLY): Stable with Cymbalta and Wellbutrin Assessment & [...] regimen. Med list updated to reflect the [id number] one daily and Prozac 40mg. Mixed hyperlipidemia 03/29/2018 Assessment & Plan (05/07/2024 8:54 PM SUPERVISOR PLATING AND POINT ASSEMBLY): Encouraged patient to follow low fat/low chol [...] statin Assessment & Plan (09/06/2023 9:42 AM SUPERVISOR PLATING AND POINT ASSEMBLY): Encouraged patient to follow low fat/low chol [...] statin Assessment & Plan (09/11/2021 11:26 PM SUPERVISOR PLATING AND POINT ASSEMBLY): Encouraged patient to follow low fat/low chol diet like the Mediterranean diet. Increase good fats in the diet. Increase exercise. Monitor labs as needed. Continue statin Assessment & Plan (05/29/2021 8:22 PM SUPERVISOR PLATING AND POINT ASSEMBLY): Encouraged patient to follow fat/low chol diet like the Mediterranean diet. Increase good fats in the diet. Increase exercise. Monitor labs as needed. Continue statin Assessment & Plan (05/24/2021 10:39 AM SUPERVISOR PLATING AND POINT ASSEMBLY): Encouraged patient to follow fat/low chol diet like the Mediterranean diet. Increase good fats in the diet. Increase exercise. Monitor labs as needed. Continue statin Assessment & Plan (12/24/2020 9:07 AM CDT): Encouraged patient to follow fat/low chol diet like the Mediterranean diet. Increase good fats in the diet. Increase exercise. Monitor labs as needed. Continue statin Assessment & Plan (08/31/2020 9:34 AM SUPERVISOR PLATING AND POINT ASSEMBLY): Encouraged patient to follow fat/low chol diet like the Mediterranean diet. Increase good fats in the diet. Increase exercise. Monitor labs as needed. Continue statin Assessment & Plan (02/18/2020 9:46 PM CDT): Encouraged patient to continue low fat/low chol diet. Continue exercise. Increase good fats in the diet. Monitor labs as needed. Assessment & Plan (08/13/2019 8:59 AM SUPERVISOR PLATING AND POINT ASSEMBLY): Encouraged patient to continue low fat/low chol [...] future Assessment & Plan (09/06/2023 9:40 AM SUPERVISOR PLATING AND POINT ASSEMBLY): Continue PPI Assessment & Plan (04/06/2023 7:36 PM CDT): Continue PPI p.r.n. Assessment & Plan (01/20/2023 8:13 PM CDT): Continue PPI Assessment & Plan (09/12/2022 6:13 PM CDT): Continue PPI p.r.n. Assessment & Plan (06/03/2022 3:40 PM SUPERVISOR PLATING AND POINT ASSEMBLY): Pyrosis poorly controlled on Nexium. Pt has [...] PPI Assessment & Plan (09/11/2021 11:26 PM SUPERVISOR PLATING AND POINT ASSEMBLY): Continue PPI Assessment & Plan (12/24/2020 9:05 AM CDT): Continue PPI Assessment & Plan (02/18/2020 9:45 PM CDT): Continue PPI. Saw Dr. Linton for increased GERD sxs. If persist, encouraged to followup again with Dr. Linton. Assessment & Plan (08/13/2019 8:58 AM SUPERVISOR PLATING AND POINT ASSEMBLY): Stable with PPI Assessment & Plan (04/29/2019 [...] exertion) Assessment & Plan (06/22/2022 10:30 AM SUPERVISOR PLATING AND POINT ASSEMBLY): Patient is not currently using inhalers. She [...] 10/14/2015 Assessment & Plan (08/02/2024 11:49 AM SUPERVISOR PLATING AND POINT ASSEMBLY): Due to the patient stating the pressure [...] readjusted. She denied need for supplies. DME [facility] Assessment & Plan (05/07/2024 8:55 PM SUPERVISOR PLATING AND POINT ASSEMBLY): Continue with CPAP. Assessment & Plan (04/21/2024 8:49 PM CDT): Continue per Dr. Dunn. Has all her needed supplies for CPAP which she is using every night. Continue with Requip 0.5 mg HS for restless leg Assessment & Plan (01/22/2024 8:08 PM CDT): Continue CPAP per Dr. Dunn Assessment & Plan (09/06/2023 9:40 AM SUPERVISOR PLATING AND POINT ASSEMBLY): Continue CPAP Assessment & Plan (06/21/2023 10:14 AM SUPERVISOR PLATING AND POINT ASSEMBLY): Patient continue to wear her CPAP at [...] CPAP Assessment & Plan (06/22/2022 10:31 AM SUPERVISOR PLATING AND POINT ASSEMBLY): Will continue CPAP therapy at an auto titrating range of 7-20 cm water pressure. Denied need for supplies. [employer] [facility] Assessment & Plan (05/02/2022 9:15 [...] water pressure. Patient denied need for supplies. [employer] patient. Patient is benefitting CPAP Assessment & Plan (09/11/2021 11:22 PM SUPERVISOR PLATING AND POINT ASSEMBLY): Continue CPAP. Patient has all needed supplies. Assessment & Plan (07/13/2021 11:27 AM SUPERVISOR PLATING AND POINT ASSEMBLY): Due to the patient stating she does not have enough pressure in her machine, I have increased the pressure to 13 cm water pressure. The patient denied need for for supplies. [employer] patient. Have also ordered a new smart card set at 13 cm water pressure. Benefitting from CPAP therapy Assessment & Plan (05/29/2021 8:14 PM SUPERVISOR PLATING AND POINT ASSEMBLY): Continue CPAP. Assessment & Plan (02/17/2021 11:09 AM CDT): The patient continues to be compliant with her CPAP at 8 cm water pressure. She has developed worsening daytime hypersomnia. She also has morning headaches and dry mouth. I have recommended proceeding with a CPAP titration study starting at 8 cm water pressure. Her DME is [facility]. Assessment & Plan (12/24/2020 9:04 AM CDT): Continue CPAP. Would like to see Pulm/sleep at [facility] as difficulty getting in consistently at [place] and most of her care is now [facility] Assessment & Plan (02/18/2020 9:44 PM CDT): Continue CPAP Assessment & Plan (08/13/2019 8:46 AM SUPERVISOR PLATING AND POINT ASSEMBLY): Using the CPAP. Has equipment as needed. [...] noted. Assessment & Plan (08/23/2024 10:16 AM SUPERVISOR PLATING AND POINT ASSEMBLY): 02/2021 XR L knee with mild to moderate OA, now s/p B TKA. Following with ortho as planned. Assessment & Plan (07/30/2024 11:23 AM SUPERVISOR PLATING AND POINT ASSEMBLY): 02/2021 XR L knee with mild to [...] March. Assessment & Plan (09/01/2023 3:42 PM SUPERVISOR PLATING AND POINT ASSEMBLY): 02/2021 XR L knee with mild to moderate OA, R knee negative. Had injections with ortho without benefit, now s/p L TKA. Assessment & Plan (06/30/2023 12:46 PM SUPERVISOR PLATING AND POINT ASSEMBLY): 02/2021 XR L knee with mild to [...] g/d. Assessment & Plan (07/15/2022 1:41 PM SUPERVISOR PLATING AND POINT ASSEMBLY): 02/2021 XR L knee with mild to moderate OA, R knee negative. Had injections with ortho with benefit. Unable to afford PT. Can continue Tylenol Arthritis, not to exceed 4 g/d. Assessment & Plan (06/03/2022 9:58 AM SUPERVISOR PLATING AND POINT ASSEMBLY): 02/2021 XR L knee with mild to [...] evaluation. Assessment & Plan (09/03/2021 11:27 AM SUPERVISOR PLATING AND POINT ASSEMBLY): XR L knee with mild to moderate [...] able. Assessment & Plan (06/04/2021 10:27 AM SUPERVISOR PLATING AND POINT ASSEMBLY): XR L knee with mild to moderate [...] above. Assessment & Plan (09/03/2020 12:23 PM SUPERVISOR PLATING AND POINT ASSEMBLY): 10/27/2017 XR L knee: mild tricompartmental OA. Will continue meloxicam as above. Assessment & Plan (07/09/2020 12:24 PM SUPERVISOR PLATING AND POINT ASSEMBLY): 10/27/2017 XR L knee: mild tricompartmental OA. Will continue meloxicam as above. In the future may consider trial of PT. 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 Assessment & Plan (08/23/2024 12:54 PM SUPERVISOR PLATING AND POINT ASSEMBLY): Moderate cdai with report of increasing pain, [...] needed. Assessment & Plan (07/30/2024 11:22 AM SUPERVISOR PLATING AND POINT ASSEMBLY): Moderate cdai with report of increased morning [...] with labs near her home ([facility] in [place]), but the following month will need to plan for an in person visit. She expressed understanding and agreement with this plan. Continue methotrexate 20 mg weekly, folic acid 2 mg daily, and hydroxychloroquine 200 mg BID. Labs today as below. Assessment & Plan (05/07/2024 8:55 PM SUPERVISOR PLATING AND POINT ASSEMBLY): Managed by [facility]. Currently on Plaquenil and methotrexate and Orencia folic acid Mobic and gabapentin. Stressed she needs to be in contact with her partner alliance manager on when and which medicines to stop for the surgery. Assessment & Plan (04/21/2024 8:49 PM CDT): Continue per [facility]. They currently manage her rheumatoid [...] Plan (01/22/2024 8:17 PM CDT): Continue per [facility] as they manage her condition. Assessment & Plan (11/24/2023 9:58 AM CDT): Low cdai without inflammatory sounding pain. Will continue methotrexate 20 mg weekly, folic acid 2 mg daily, hydroxychloroquine 200 mg BID, and Orencia and monitor. Labs today as below. Follow up in 3 months or sooner as needed. Assessment & Plan (09/06/2023 9:42 AM SUPERVISOR PLATING AND POINT ASSEMBLY): Rheumatoid arthritis is managed by [facility]. Currently on Plaquenil methotrexate Orencia and folic acid Assessment & Plan (09/01/2023 3:39 PM SUPERVISOR PLATING AND POINT ASSEMBLY): Overall stable without notable synovitis and no inflammatory sounding pain. Will continue methotrexate 20 mg weekly, folic acid 2 mg daily, hydroxychloroquine 200 mg BID, and Orencia and monitor. Labs today as below. Follow up in 3 months or sooner as needed. Assessment & Plan (08/03/2023 8:28 AM SUPERVISOR PLATING AND POINT ASSEMBLY): Continue with rheumatology. Assessment & Plan (06/30/2023 12:43 PM SUPERVISOR PLATING AND POINT ASSEMBLY): Overall stable without notable synovitis and no inflammatory sounding pain. Will continue methotrexate 20 mg weekly, folic acid 2 mg daily, hydroxychloroquine 200 mg BID, and Orencia and monitor. Labs today as below. Assessment & Plan (06/02/2023 4:49 PM SUPERVISOR PLATING AND POINT ASSEMBLY): Continue per Rheumatology Assessment & Plan (04/06/2023 7:35 PM CDT): Continue per Rheumatology. She has been in discussion with them on what medications to stop prior to her knee surgery. She states she was told to take all of her medicines accept the Orencia. Assessment & Plan (01/20/2023 8:12 PM CDT): Continue per [facility] Assessment & Plan (01/13/2023 3:42 [...] Plan (09/12/2022 6:06 PM CDT): Continue with [facility] Assessment & Plan (07/15/2022 1:41 PM SUPERVISOR PLATING AND POINT ASSEMBLY): Low cdai. Significantly improved after IM triamcinolone [...] needed. Assessment & Plan (06/03/2022 3:37 PM SUPERVISOR PLATING AND POINT ASSEMBLY): High cdai. Previously felt well controlled with current regimen. Due to burden of disease will give patient a triamcinolone injection. Patient made aware of SE of steroids including but not limited to HTN, increased blood glucose, cataracts, glaucoma, AVN, and osteoporosis with custodial use. Should she flare again shortly after [...] (01/23/2022 4:57 PM CDT): Continue management per [facility] Assessment & Plan (12/07/2021 9:02 AM CDT): Low cdai. Denies inflammatory sounding joint pain. Continue methotrexate 25 mg weekly, folic acid to 2 mg daily, Rinvoq 15 mg daily, hydroxychloroquine 200 mg BID, and cyclobenzaprine 5 mg qhs and monitor. Labs today as below. Plan for follow up in 3 months or sooner as needed. Assessment & Plan (09/11/2021 11:14 PM SUPERVISOR PLATING AND POINT ASSEMBLY): Continue per [facility] Assessment & Plan (09/03/2021 11:25 AM SUPERVISOR PLATING AND POINT ASSEMBLY): cdai = 12. Pt suspects increased joint [...] needed. Assessment & Plan (06/04/2021 10:25 AM SUPERVISOR PLATING AND POINT ASSEMBLY): Low cdai. Denies inflammatory sounding pain at present. Will plan to continue methotrexate 25 mg weekly, folic acid to 2 mg daily, Rinvoq 15 mg daily, hydroxychloroquine 200 mg BID, and cyclobenzaprine 5 mg qhs and monitor. Labs today as below. Plan for follow up in 3 months or sooner as needed. Assessment & Plan (05/31/2021 9:15 PM SUPERVISOR PLATING AND POINT ASSEMBLY): Continue per Rheumatology Assessment & Plan (05/29/2021 8:13 PM SUPERVISOR PLATING AND POINT ASSEMBLY): Continue per Rheumatology. Currently on Plaquenil methotrexate and folic acid. Assessment & Plan (05/24/2021 10:38 AM SUPERVISOR PLATING AND POINT ASSEMBLY): Continue per Rheumatology Assessment & Plan (03/05/2021 [...] needed. Assessment & Plan (09/03/2020 12:22 PM SUPERVISOR PLATING AND POINT ASSEMBLY): Low cdai. Continues to feel improved with [...] needed. Assessment & Plan (08/31/2020 9:34 AM SUPERVISOR PLATING AND POINT ASSEMBLY): Continue per [facility] Assessment & Plan (07/09/2020 12:22 PM SUPERVISOR PLATING AND POINT ASSEMBLY): 64yoF with a h/o seropositive RA diagnosed [...] time. Assessment & Plan (06/04/2020 11:14 AM SUPERVISOR PLATING AND POINT ASSEMBLY): 64yoF with a h/o seropositive RA diagnosed [...] needed. Assessment & Plan (05/14/2020 9:33 PM SUPERVISOR PLATING AND POINT ASSEMBLY): Refer to new [employer] as Dr. Soto has . Assessment & Plan (02/18/2020 9:46 PM CDT): Continue per Rheum Assessment & Plan (08/13/2019 8:59 AM SUPERVISOR PLATING AND POINT ASSEMBLY): Continue per Dr. Soto Assessment & Plan [...] responding to Reclast. Forteo was tried by [facility] and she could not tolerate. [...] of her osteoporosis, recommended evaluation by the [facility], unfortunately their first available appt was in November 2024. Recommended today that she check with [facility] Osteoporosis center (at [facility]) to see how far out they are scheduling new patients, though she does not like this option due to distance from her house. Assessment & Plan (09/06/2023 9:40 AM SUPERVISOR PLATING AND POINT ASSEMBLY): Managed by [facility]. Per patient they are making a referral to bone metabolism at [facility] she has not seen significant improvement with the Forteo or the Reclast. Assessment & Plan (09/01/2023 3:43 PM SUPERVISOR PLATING AND POINT ASSEMBLY): DEXA: Lspine BMD 0.809 Tscore -2.2, L [...] of her osteoporosis, recommend evaluation by the [facility], provided contact info for Dr. Castillo. Pt in agreement with plan. Assessment & Plan (06/30/2023 12:49 PM SUPERVISOR PLATING AND POINT ASSEMBLY): DEXA: Lspine BMD 0.809 Tscore -2.2, L [...] PM CDT): Continue to monitor. Managed by [facility]. Patient is on Reclast calcium vitamin-D [...] exercise Assessment & Plan (07/15/2022 1:42 PM SUPERVISOR PLATING AND POINT ASSEMBLY): 01/27/2021 DEXA: Lspine -1.8, L femoral neck -1.9, L total hip -1.2, R femoral neck -2.3, R total hip -1.0, FRAX major 32% and hip 7%. Received Reclast 07/2021. Continue yearly Reclast, scheduled for 07/22 Assessment & Plan (06/03/2022 3:38 PM SUPERVISOR PLATING AND POINT ASSEMBLY): 01/27/2021 DEXA: Lspine -1.8, L femoral neck [...] Plan (01/23/2022 5:02 PM CDT): Managed by [facility] currently on Reclast calcium and vitamin-D Assessment & Plan (12/07/2021 9:04 AM CDT): 01/27/2021 DEXA: Lspine -1.8, L femoral neck -1.9, L total hip -1.2, R femoral neck -2.3, R total hip -1.0, FRAX major 32% and hip 7%. Received Reclast 07/2021. Continue yearly Reclast. Assessment & Plan (09/03/2021 11:26 AM SUPERVISOR PLATING AND POINT ASSEMBLY): 01/27/2021 DEXA: Lspine -1.8, L femoral neck -1.9, L total hip -1.2, R femoral neck -2.3, R total hip -1.0, FRAX major 32% and hip 7%. Received Reclast 07/2021. Continue yearly reclast and daily vitamin D-calcium supplement. Assessment & Plan (06/04/2021 10:27 AM SUPERVISOR PLATING AND POINT ASSEMBLY): 01/27/2021 DEXA: Lspine -1.8, L femoral neck [...] order provided today, she will schedule at [facility] Assessment & Plan (12/24/2020 9:06 AM CDT): Continue Reclast thru Rheum Continue calcium, vitD and exercise Assessment & Plan (12/03/2020 10:45 AM CDT): Vitamin D level was 68. Received Reclast 07/09/2020. Last DEXA per available records was 01/31/2019, due this summer - order provided today, she will schedule at [facility] Assessment & Plan (09/03/2020 12:23 PM SUPERVISOR PLATING AND POINT ASSEMBLY): Vitamin D level was 68. Received Reclast 07/09/2020. Last DEXA per available records was 01/31/2019, due this summer. Assessment & Plan (07/09/2020 12:23 PM SUPERVISOR PLATING AND POINT ASSEMBLY): Overdue for Reclast, last infusion was 03/28/2019, will receive infusion today. Vitamin D level was 68 Last DEXA per available records was 01/31/2019 Assessment & Plan (06/04/2020 11:15 AM SUPERVISOR PLATING AND POINT ASSEMBLY): Overdue for Reclast, last infusion was 03/28/2019, will check benefits. Recheck vitamin D level now. Last DEXA per available records was 01/31/2019 Assessment & Plan (02/18/2020 9:46 PM CDT): Calcium, vit D and exercise. Continue to monitor DXA Assessment & Plan (08/13/2019 8:58 AM SUPERVISOR PLATING AND POINT ASSEMBLY): Continue with Calcium, Vit D and Exercise. [...] Krishnamurthy. 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 Daniels Stressed importance of very close follow-up BMI 37.0-37.9, adult 09/06/2023 024 Assessment & Plan (10/13/2023 7:38 AM CDT): Discussed the patient's BMI. The BMI is above average. BMI management plan is completed. BMI Follow-up includes: nutrition counseling, exercise counseling and education provided. Assessment & Plan (09/06/2023 9:42 AM SUPERVISOR PLATING AND POINT ASSEMBLY): Discussed the patient's BMI. The BMI is above average. BMI management plan is completed. BMI Follow-up includes: nutrition counseling, exercise counseling and education provided. Hyperglycemia 09/06/2023 09/06/2023 Positive depression screening 09/06/2023 09/06/2023 Annual physical exam 09/06/2023 024 Assessment & Plan (09/06/2023 9:43 AM SUPERVISOR PLATING AND POINT ASSEMBLY): Encouraged healthy lifestyle, good nutrition and exercise. Encouraged Calcium and Vitamin D and weight bearing exercise for bone health. Reviewed immunizations Reviewed age appropirate screenings. Right knee pain 08/09/2023 09/06/2023 Sinus congestion 08/07/2023 09/06/2023 Assessment & Plan (08/07/2023 7:54 PM SUPERVISOR PLATING AND POINT ASSEMBLY): Persistent sinusitis symptoms along with cough. Will start doxy b.i.d.. Start antihistamine (Claritin OR Zyrtec), Mucinex 12hour and Steroid nasal spray (Flonase). Push fluids. Rest. Supportive care. If sxs worsen or don\'t improve, pt is to followup in the office. Acute cough 08/07/2023 01/22/2024 Assessment & Plan (08/07/2023 7:55 PM SUPERVISOR PLATING AND POINT ASSEMBLY): Persistent sinusitis symptoms along with cough. Will start doxy b.i.d.. Start antihistamine (Claritin OR Zyrtec), Mucinex 12hour and Steroid nasal spray (Flonase). Push fluids. Rest. Supportive care. If sxs worsen or don\'t improve, pt is to followup in the office. BMI 35.0-35.9,adult 08/03/2023 09/06/19 24 Assessment & Plan (08/07/2023 7:51 PM SUPERVISOR PLATING AND POINT ASSEMBLY): Discussed the patient's BMI. The BMI is above average. BMI management plan is completed. BMI Follow-up includes: nutrition counseling, exercise counseling and education provided. Assessment & Plan (08/03/2023 8:29 AM SUPERVISOR PLATING AND POINT ASSEMBLY): Discussed the patient's BMI. The BMI is [...] 01/22/2024 Assessment & Plan (06/02/2023 4:57 PM SUPERVISOR PLATING AND POINT ASSEMBLY): Later in the day received critical lab call for a CO2 value at 42. My staff contacted the patient and she was instructed to go to the ER for further evaluation to determine underlying cause. She states throughout the day she has noticed a little bit more shortness of breath. [facility] Charge nurse was notified of the arrival [...] surgery. 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 Her chronic medical conditions are stable. [facility] as instructed her to hold the [...] Dr. Ge Sexton on May 04 at [facility]. Need for vaccination for Strep pneumoniae [...] symptoms worsen or do not respond to [id number] allergy medicines within the next week she may call and will consider antibiotic. Left knee pain 09/13/2022 09/06/2023 BMI 39.0-39.9,adult 08/23/2022 11/09/19 23 Assessment & Plan (10/25/2022 3:32 PM CDT): Discussed the patient's BMI. The BMI is above average. BMI management plan is completed. BMI Follow-up includes: nutrition counseling, exercise counseling and education provided. Assessment & Plan (08/23/2022 2:19 PM SUPERVISOR PLATING AND POINT ASSEMBLY): Discussed the patient's BMI. The BMI is [...] plans Assessment & Plan (07/18/2022 10:20 AM SUPERVISOR PLATING AND POINT ASSEMBLY): CT revealed pelvic lipomatosis that is compressing [...] 12/20/2022 Assessment & Plan (07/18/2022 10:21 AM SUPERVISOR PLATING AND POINT ASSEMBLY): CT revealed pelvic lipomatosis that is compressing [...] plan, Assessment & Plan (07/08/2022 12:33 PM SUPERVISOR PLATING AND POINT ASSEMBLY): Patient has had dysuria. She was started [...] 07/08/202204/06 Assessment & Plan (07/18/2022 10:21 AM SUPERVISOR PLATING AND POINT ASSEMBLY): CT revealed pelvic lipomatosis that is compressing [...] plan, Assessment & Plan (07/08/2022 5:58 PM SUPERVISOR PLATING AND POINT ASSEMBLY): Images from the original note were not [...] STAT abd/pelvis with and without contrast at [place]. Check labs STAT. STAT CT Abd/pelvis without [...] 09/06/2023 Assessment & Plan (07/08/2022 12:33 PM SUPERVISOR PLATING AND POINT ASSEMBLY): Patient has had dysuria. She was started [...] STAT. Assessment & Plan (07/06/2022 8:50 AM SUPERVISOR PLATING AND POINT ASSEMBLY): Pt presents with dysuria. Urine dip completed. [...] 35.00-39.99. Assessment & Plan (07/18/2022 10:23 AM SUPERVISOR PLATING AND POINT ASSEMBLY): Discussed the patient's BMI. The BMI is above average. BMI management plan is completed. BMI Follow-up includes: nutrition counseling, exercise counseling and education provided. Assessment & Plan (07/08/2022 12:30 PM SUPERVISOR PLATING AND POINT ASSEMBLY): Discussed the patient's BMI. The BMI is [...] She has received multiple injections from her partner alliance manager regarding her knee but yesterday when she [...] 01/23/2022 Assessment & Plan (09/11/2021 11:28 PM SUPERVISOR PLATING AND POINT ASSEMBLY): Patient has never had a full skin exam. She has quite a few lesions scattered and would benefit from a full exam. Will make referral Annual physical exam 09/11/2021 022 Assessment & Plan (09/11/2021 11:28 PM SUPERVISOR PLATING AND POINT ASSEMBLY): Encouraged healthy lifestyle, good nutrition and exercise. Encouraged Calcium and Vitamin D and weight bearing exercise for bone health. Reviewed immunizations Reviewed age appropirate screenings. Cough 08/13/2021 01/23/2022 Assessment & Plan (08/13/2021 3:43 PM SUPERVISOR PLATING AND POINT ASSEMBLY): Patient to presume positive COVID/FLU until results are available and plan to self isolate for up to 10 days from the onset of sxs. Check COVID/FLU test thru [facility] collection site in [place]. Let pt know the newest CDC recommendations [...] future. Assessment & Plan (07/13/2021 11:28 AM SUPERVISOR PLATING AND POINT ASSEMBLY): I have ordered the patient Claritin 10 [...] provided. Assessment & Plan (09/11/2021 11:27 PM SUPERVISOR PLATING AND POINT ASSEMBLY): Obesity is unchanged. Discussed the patient's BMI. The BMI is above average. BMI management plan is completed. BMI Follow-up includes: nutrition counseling, exercise counseling and education provided. Assessment & Plan (05/29/2021 8:24 PM SUPERVISOR PLATING AND POINT ASSEMBLY): Obesity is unchanged. Discussed the patient's BMI. The BMI is above average. BMI management plan is completed. BMI Follow-up includes: nutrition counseling, exercise counseling and education provided. Assessment & Plan (05/12/2021 1:26 PM SUPERVISOR PLATING AND POINT ASSEMBLY): Obesity is unchanged. Discussed the patient's BMI. The BMI is above average. BMI management plan is completed. BMI Follow-up includes: nutrition counseling, exercise counseling and education provided. BMI 37.0-37.9, adult 05/12/2021 022 Assessment & Plan (09/11/2021 11:27 PM SUPERVISOR PLATING AND POINT ASSEMBLY): Obesity is unchanged. Discussed the patient's BMI. The BMI is above average. BMI management plan is completed. BMI Follow-up includes: nutrition counseling, exercise counseling and education provided. Assessment & Plan (05/29/2021 8:24 PM SUPERVISOR PLATING AND POINT ASSEMBLY): Obesity is unchanged. Discussed the patient's BMI. The BMI is above average. BMI management plan is completed. BMI Follow-up includes: nutrition counseling, exercise counseling and education provided. Assessment & Plan (05/12/2021 1:26 PM SUPERVISOR PLATING AND POINT ASSEMBLY): Obesity is unchanged. Discussed the patient's BMI. The BMI is above average. BMI management plan is completed. BMI Follow-up includes: nutrition counseling, exercise counseling and education provided. Tinea corporis 04/14/2021 01/23/2022 Assessment & Plan (05/31/2021 9:15 PM SUPERVISOR PLATING AND POINT ASSEMBLY): Improving with Lotrisone. Keep the area clean and dry Assessment & Plan (05/29/2021 8:24 PM SUPERVISOR PLATING AND POINT ASSEMBLY): Lotrisone to pharmacy. Encouraged her to keep the area clean and dry use her dryer to dry the skin before applying the cream. She is to call if symptoms worsen or do not resolve. Need for immunization against influenza 04/14/2021 05/31/2021 Assessment & Plan (05/29/2021 8:24 PM SUPERVISOR PLATING AND POINT ASSEMBLY): Fluid updated in the office Medicare annual wellness visit, subsequent 04/13/2021 05/31/2021 Assessment & Plan (05/29/2021 8:23 PM SUPERVISOR PLATING AND POINT ASSEMBLY): Encouraged healthy lifestyle, good nutrition and exercise. [...] 12/30/2020 Assessment & Plan (08/31/2020 9:31 AM SUPERVISOR PLATING AND POINT ASSEMBLY): Error. This should be right calf but PT order sent and corrected so unable to remove. Fatigue 08/31/2020 09/06/2023 Assessment & Plan (04/06/2023 7:43 PM CDT): Probably multifactorial. Check labs and followup to re-evaluate Assessment & Plan (05/02/2022 9:16 PM CDT): Probably multifactorial. Check labs and followup to re-evaluate Assessment & Plan (08/31/2020 9:34 AM SUPERVISOR PLATING AND POINT ASSEMBLY): Probably multifactorial. Check labs and followup to re-evaluate Pain in both lower extremities 08/31/2020 09/06/2023 Assessment & Plan (09/01/2023 3:41 PM SUPERVISOR PLATING AND POINT ASSEMBLY): Cramping lower leg pain has resolved with [...] 021 Assessment & Plan (08/31/2020 9:33 AM SUPERVISOR PLATING AND POINT ASSEMBLY): Obesity is unchanged. Discussed the patient's BMI. The BMI is above average. BMI management plan is completed. BMI Follow-up includes: nutrition counseling, exercise counseling and education provided. Pain of right calf 08/26/2020 Assessment & Plan (08/31/2020 9:31 AM SUPERVISOR PLATING AND POINT ASSEMBLY): This is a significant, separately identifiable problem that was evaluated and managed on the same day as the wellness exam Unable to rule out DVT with her calf pain/sxs. Check STAT Venous doppler. Recvd Results and discussed with patient via phone. Negative for DVT. Recommend PT. Prefers [facility] Annual physical exam 08/24/2020 021 Assessment & Plan (08/31/2020 9:34 AM SUPERVISOR PLATING AND POINT ASSEMBLY): Encouraged healthy lifestyle, good nutrition and exercise. Encouraged Calcium and Vitamin D and weight bearing exercise for bone health. Reviewed immunizations Reviewed age appropirate screenings. Dizziness 05/07/2020 09/06/2023 Assessment & Plan (05/14/2020 9:35 PM SUPERVISOR PLATING AND POINT ASSEMBLY): Suspect the dizziness is inner ear related. [...] imaging. Assessment & Plan (05/07/2020 1:49 PM SUPERVISOR PLATING AND POINT ASSEMBLY): Declines to report to er now 'I [...] 05/14/2020 Assessment & Plan (05/07/2020 1:49 PM SUPERVISOR PLATING AND POINT ASSEMBLY): Declines to report to er now 'I [...] 12/30/2020 Assessment & Plan (05/07/2020 1:49 PM SUPERVISOR PLATING AND POINT ASSEMBLY): Declines to report to er now 'I [...] provided Assessment & Plan (05/31/2021 9:15 PM SUPERVISOR PLATING AND POINT ASSEMBLY): Mammogram order provided Assessment & Plan (02/18/2020 9:47 PM CDT): Mammogram order provided today Medicare annual wellness visit, subsequent 02/15/2020 02/15/2020 Precordial pain 09/04/2019 09/06/2023 Assessment & Plan (08/07/2023 7:50 PM SUPERVISOR PLATING AND POINT ASSEMBLY): Workup in the hospital. Cardiology states her [...] inhaler. Assessment & Plan (07/13/2021 11:26 AM SUPERVISOR PLATING AND POINT ASSEMBLY): The patient will continue with Dulera 2 [...] 020 Assessment & Plan (08/13/2019 8:59 AM SUPERVISOR PLATING AND POINT ASSEMBLY): Encouraged healthy lifestyle, good nutrition and exercise. Encouraged Calcium and Vitamin D and weight bearing exercise for bone health. Reviewed immunizations Reviewed age appropirate screenings. Obesity, morbid, BMI 40.0-49.9 08/13/2019 09/23/2020 Assessment & Plan (08/26/2020 7:10 AM SUPERVISOR PLATING AND POINT ASSEMBLY): Obesity is unchanged. Discussed the patient's BMI. The BMI is above average. BMI management plan is completed. BMI Follow-up includes: nutrition counseling, exercise counseling and education provided. Assessment & Plan (05/14/2020 9:33 PM SUPERVISOR PLATING AND POINT ASSEMBLY): Obesity is unchanged. Discussed the patient's BMI. [...] provided. Assessment & Plan (08/13/2019 8:58 AM SUPERVISOR PLATING AND POINT ASSEMBLY): Obesity is unchanged. Discussed the patient's BMI. [...] change Assessment & Plan (08/13/2019 9:01 AM SUPERVISOR PLATING AND POINT ASSEMBLY): This is a significant, separately identifiable problem [...] 01/22/2024 Assessment & Plan (09/06/2023 9:42 AM SUPERVISOR PLATING AND POINT ASSEMBLY): Probably multifactorial. Check labs and followup to re-evaluate Assessment & Plan (09/03/2021 11:28 AM SUPERVISOR PLATING AND POINT ASSEMBLY): She notes increased fatigue and lack of [...] re-evaluate Assessment & Plan (08/13/2019 9:08 AM SUPERVISOR PLATING AND POINT ASSEMBLY): Probably multifactorial. Check labs and followup to re-evaluate Check labs prior to next visit BMI 40.0-44.9, adult 08/02/2019 020 Assessment & Plan (08/13/2019 8:57 AM SUPERVISOR PLATING AND POINT ASSEMBLY): Obesity is unchanged. Discussed the patient's BMI. The BMI is above average. BMI management plan is completed. BMI Follow-up includes: nutrition counseling, exercise counseling and education provided. Assessment & Plan (08/02/2019 7:21 AM SUPERVISOR PLATING AND POINT ASSEMBLY): Obesity is unchanged. Discussed the patient's BMI. The BMI is above average. BMI management plan is completed. BMI Follow-up includes: nutrition counseling, exercise counseling and education provided. Morbid obesity 08/02/2019 08/13/2019 Assessment & Plan (08/02/2019 7:20 AM SUPERVISOR PLATING AND POINT ASSEMBLY): Obesity is unchanged. Discussed the patient's BMI. The BMI is above average. BMI management plan is completed. BMI Follow-up includes: nutrition counseling, exercise counseling and education provided. Acute non-recurrent maxillary sinusitis 08/02/2019 08/13/2019 Assessment & Plan (08/02/2019 7:47 AM SUPERVISOR PLATING AND POINT ASSEMBLY): Start antibiotic, antihistamine, Mucinex and Steroid nasal [...] foot. She is being sent directly to [facility] and they were working her in [...] 21 Assessment & Plan (05/14/2020 9:33 PM SUPERVISOR PLATING AND POINT ASSEMBLY): Completed Doxy and steroid. No s/s infection. [...] p.r.n. 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 She is on aspirin and statin Assessment & Plan (12/24/2020 9:03 AM CDT): Sxs stable. On ASA, statin and encouraged daily exercise. Assessment & Plan (02/18/2020 9:43 PM CDT): Continue per cardio. On ASA and statin Assessment & Plan (08/13/2019 8:45 AM SUPERVISOR PLATING AND POINT ASSEMBLY): Continues with Dr. Alonso salmeron Assessment & Plan (11/01/2018 11:00 PM CDT): Pt sxs well controlled. 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 Continue per cardio Depression 07/16/2018 09/11/2021 Frontal sinusitis 06/26/2018 12/24/2020 Leukopenia 03/29/2018 12/30/2020 Other chronic pain 08/05/2017 3 Chronic seasonal allergic rh initis due to pollen 04/25/2017 12/30/2020 Assessment & Plan (12/24/2020 9:03 AM CDT): Continue current regimen with singulair and otc Assessment & Plan (02/18/2020 9:44 PM CDT): Continue with otc regimen Assessment & Plan (08/13/2019 8:46 AM SUPERVISOR PLATING AND POINT ASSEMBLY): Continue current regimen Assessment & Plan (11/01/2018 [...] potassium Assessment & Plan (09/11/2021 11:26 PM SUPERVISOR PLATING AND POINT ASSEMBLY): Bp is stable/in acceptable range for any co-morbidities. Encouraged to limit sodium intake and exercise for weight control. Currently stable without medication Assessment & Plan (05/29/2021 8:19 PM SUPERVISOR PLATING AND POINT ASSEMBLY): Bp is stable/in acceptable range for any co-morbidities. Encouraged to limit sodium intake and exercise for weight control. Continue Lasix is helping with the swelling and addition. Blood pressure stable Assessment & Plan (05/24/2021 10:38 AM SUPERVISOR PLATING AND POINT ASSEMBLY): Continue Lasix potassium Assessment & Plan (12/24/2020 9:05 AM CDT): Bp is stable/in acceptable range for any co-morbidities. Encouraged to limit sodium intake and exercise for weight control. Assessment & Plan (08/31/2020 9:32 AM SUPERVISOR PLATING AND POINT ASSEMBLY): Bp is stable/in acceptable range for any co-morbidities. Encouraged to limit sodium intake and exercise for weight control. Stable with laxis currently Assessment & Plan (02/18/2020 9:44 PM CDT): Bp is stable/in acceptable range for any co-morbidities. Encouraged to limit sodium intake and exercise for weight control. Assessment & Plan (08/13/2019 8:57 AM SUPERVISOR PLATING AND POINT ASSEMBLY): Bp is stable/in acceptable range for any [...] difficulty pulling them. Recommend finding some on [employer] that fit her calf that she can zip on and off. Showed them to her on [employer] and where to order them. She states she will try to get them. Assessment & Plan (05/31/2021 9:16 PM SUPERVISOR PLATING AND POINT ASSEMBLY): Improving slowly. May have been due to the Relafen. She is on 60 of Lasix with potassium 10 mEq daily. Continue with current plan. Keep legs elevated. Utilize compressi to improve cleared. on hose. Call if symptoms worsen or do not continue to improve. Assessment & Plan (05/29/2021 8:23 PM SUPERVISOR PLATING AND POINT ASSEMBLY): Persistent lower extremity edema that has improved [...] CMP. Assessment & Plan (05/24/2021 10:39 AM SUPERVISOR PLATING AND POINT ASSEMBLY): Patient that her swelling was improving since discharge for over the last day or so it seems to be increasing. Will increase the Lasix to 40mg Start K 10meq daily Recheck labs in 5 days Assessment & Plan (08/31/2020 9:33 AM SUPERVISOR PLATING AND POINT ASSEMBLY): Continue lasix Palpitations 12/08/2015 12/30/2020 Overview (10/09/2016): Palpitations Other abnormal glucose 11/11/201508/31 Asthma 10/14/2015 12/24/2020 Assessment & Plan (08/13/2019 8:49 AM SUPERVISOR PLATING AND POINT ASSEMBLY): Continue with current regimen and with Pulmonary Assessment & Plan (11/01/2018 10:53 PM CDT): Currently Stable with regimen. Monitor closely with current allergy season. Followup Dr. Gomez as directed. Menopause 10/14/2015 12/30/2020 Cervical pain (neck) 10/14/2015 023 Encounters Date Type Department Care Team Description 08/29/2024 Nurse Triage [facility] Family [facility] [address] [place] [address] Alee Elizondo PA 08/29/2024 Telephone [facility] Pul[facility] [place] [address] [place] [address] Shailesh Dunn MD Med Refill (Ropinirol HCL 0.5MG tab) 08/24/2024 Results Follow-Up [facility] [address] [place] [phone] Sangita Farrar PA 08/23/2024 11:30 AM SUPERVISOR PLATING AND POINT ASSEMBLY Office Visit [facility] [address] [place] [phone] Sangita Farrar PA 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) (HCC) (Primary Dx); Primary osteoarthritis involving multiple joints; Encounter for medication monitoring 08/23/2024 Telephone [facility] [address] [place] [phone] Sangita Farrar PA Orencia Approved 08/21/2024 Telephone [facility] [address] [place] [phone] Kelsie Branhamfer 08/02/2024 11:45 AM SUPERVISOR PLATING AND POINT ASSEMBLY Office Visit [facility] [address] [phone] Magaly Snider NP OWEN on CPAP (Primary Dx); OWEN (obstructive sleep apnea); PLMD (periodic limb movement disorder) 08/02/[address] [phone] Shailesh Dunn MD Orders Only 08/01/2024 Orders Only [facility] [address] [place] [address] Alee Elizondo PA Pre-diabetes (Primary Dx); Mixed hyperlipidemia; Fatigue, unspecified type 07/30/2024 9:00 AM SUPERVISOR PLATING AND POINT ASSEMBLY Office Visit [facility] [address] [place] [phone] Sangita Farrar PA 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) (HCC) (Primary Dx); Primary osteoarthritis involving multiple joints; Encounter for medication monitoring 07/24/2024 2:00 PM SUPERVISOR PLATING AND POINT ASSEMBLY Office Visit [facility] [address] [place] [phone] Michael Motta MD Status post total knee replacement using cement, right (Primary Dx) 07/24/2024 1:27 PM SUPERVISOR PLATING AND POINT ASSEMBLY - 07/24/2024 11:59 PM SUPERVISOR PLATING AND POINT ASSEMBLY Hospital Encounter [facility] [facility] [address] [place] [address] Status post total knee replacement using cement, right Discharge Disposition: Discharge to home or self care 07/24/2024 Telephone [place] [phone] [email or web address] [address] [place] [phone] Alee Elizondo PA Referral Request (/) 07/12/2024 Telephone [facility] [address] [place] [address] [place] [phone] Michael Motta MD ret call 07/03/[address] [place] [phone] Alee Elizondo PA Symptom Based Call 06/28/[address] [place] [phone] Alee Elizondo PA Forms Request 06/26/2024 Telephone [facility] [address] [place] [phone] Michel Rae PA Scheduling Appointments 06/25/2024 Telephone [facility] [address] [place] [phone] Michael Motta MD Post-op Problem 06/22/[address] [place] [phone] Alee Elizondo PA 06/21/2024 9:15 AM [employer]PERVIS[employer] Office Visit [facility] [address] [place] [phone] Michel Rae PA Status post total knee replacement using cement, right (Primary Dx); Primary osteoarthritis of right knee; Orthopedic aftercare; Right knee pain, unspecified chronicity 06/14/2024 9:00 AM [employer]PERVISOR [employer] Office Visit [facility] [address] [place] [phone] Michel Rae PA Status post total knee replacement using cement, right (Primary Dx); Orthopedic aftercare; Right knee pain, unspecified chronicity; Primary osteoarthritis of right knee 06/12/2024 Telephone [facility] [address] [facility] [address] [place] [phone] Michael Motta MD 06/07/2024 Telephone [facility] Family Medicine [address] [facility] [address] [place] [address] Alee Elizondo PA Referral Request 05/30/2024 7:34 AM SUPERVISOR [employer]ATING [employer]INT [employer]SEM[employer] Anesthesia Event [facility] OR [address] [place] [phone] Karen Olmstead MD Boivin, James R., MD 05/30/2024 7:30 AM SUPERVISOR [employer]ATING [employer] - 05/30/2024 10:15 AM [employer]PER[employer]ATING [employer] Surgery [facility] OR [address] [place] [phone] Michael Motta MD RIGHT TOTAL KNEE ARTHROPLASTY 05/30/2024 7:20 AM SUPER[employer]OR [employer] Ancillary Procedure [facility] OR [address] [place] [address] 05/30/2024 7:15 AM SUPERVISOR [employer]ATING [employer]SEMBL[employer] Ancillary Procedure [facility] OR [address] [place] [phone] 05/30/2024 5:23 AM SUPERVISOR [employer]ATING [employer]INT [employer]SEM[employer] - 06/05/2024 2:12 PM SUPERVISOR [employer]ATING [employer]INT [employer]SEM[employer] Hospital Encounter [address] [address] Michael Motta MD Primary osteoarthritis of right knee (Primary Dx); Primary osteoarthritis of other site Discharge Disposition: Discharge to home, home health skilled care from Last 3 Months Immunizations Immunization Administration Dates Next Due COVID-19 mRNA (Retrophin) 0.3 m L (30 mcg) vaccine (12 [...] states Arthritis Allergic rhinitis Autoimmune disease (CMS/HCC) ([facility]) GERD (gastroesophageal reflux disease) Sinusitis HL (hearing loss) right ear hear ing aide Congenital malformation left arm Sleep apnea wears cpap night ly Obesity RA (rheumatoid arthritis) ([facility]) Prediabetes diet controlled Osteoporosis Family History Medical [...] drink = 0.6 oz pur e alcohol) [facility] Utilities Answer Date Recorded In the past 12 months has [employer] e electric, gas, oil, or water company [...] often do you attend chur ch or baptism services? 1 to 4 times per year 05/30/2024 Do you belong to any clubs o r organizations such as yazdanism groups, unions, fraternal or athletic groups, or [...] place to sleep or slept in a long term (including now)? No 05/27/2023 Housing Stability Vital Sign Answer Jarrett e Recorded In the last 12 months, was t here a time when you were not able to pay the mortgage or rent on time? No 05/30/2024 In the past 12 months, how m any times have you moved where you were living? 0 05/30/2024 At any time in the past 12 m [facility], were you homeless or living in a long term (including now)? No 05/30/2024 Personal Safety Answer Date Recorded Have you ever been in or are you currently in a harmful physical or emotional relationship or is someone making you feel afraid or unsafe? Denies 05/30/2024 Comments No Sex and Gender Information Value Date Recorded Sex Assigned at Not on file Legal Sex Female 8:04 PM SUPERVIS[employer] Gender Identity Female 02/15/2020 6:08 PM CDT Sexual Orientation Not on file Obstetrics History Last Filed Vital Signs Vital Sign Reading Time Taken Comments Blood Pressure 112/78 08/23/2024 11:24 AM SUPERVISOR [employer]ATING [employer] Pulse 73 08/23/2024 11:24 AM SUPERVISOR [employer]ATING [employer] Temperature 36.9 C (98.4 F) 08/02/2024 11:18 AM SUPERVISOR [employer]ATING [employer] Respiratory Rate 18 08/02/2024 11:1 8 AM SUPERVISOR [employer]ATING [employer] Oxygen Saturation 97% 08/23/2024 11: 24 AM SUPERVISOR [employer]ATING [employer] Inhaled Oxygen Concentration - - Weight 88.4 kg (194 lb 12.8 oz) 025 11:24 AM [employer]PER[employer]OR [employer] Height 154.9 cm (5' 1 ) 08/23/2024 11:2 4 AM [employer]PER[employer]OR [employer]ATING [employer] Body Mass Index 36.81 08/23/2024 11:24 AM SUPERVISOR [employer]ATING [employer]INT [employer] Plan of Treatment Health Maintenance Due Date [...] history exists Medical Devices Implanted Type Area Office Worker Device Identifier Shelf Expiration Date Model / Serial / Lot [employer] Simplex P Radiopaque Full Dose Cement Bone Sterile 6191-1-010 - [id number] Implanted:Qty: 2 on 05/04/2023 by Michael Motta MD at [facility] Bone Cement Left: Knee [employer] 05/03/2025 6191-1-010 / 6191-1-001 / [id number] [employer] Simplex P Radiopaque Full Dose Cement Bone Sterile 6191-1-010 - [id number] Implanted:Qty: 2 on 05/30/2024 by Michael Motta MD at [facility] Bone Cement Right: Patella [employer] [id number] 05/03/2026 6191-1-010 / / [id number] [employer] Persona 14mm 30+ Mm Knee Tibia Taper Extension Stem [id number] - [id number] 4 - [id number] Implanted:Qty: 1 on 05/04/2023 by Michael Motta MD at [facility] Left: Knee [employer] [id number] 02/15/2033 [id number] / [id number]- 14 / [id number] [employer] Persona Cemented Cruciate Retaining Knee Left 7 Narrow Component [id number] - [id number] 1 - [id number] Implanted:Qty: 1 on 05/04/2023 by Michael Motta MD at [facility] Left: Knee [employer] [id number] 10/25/2032 [id number] / [id number] 01 / [id number] [employer] Baseplate Tibial Knee Cemented Left Fixed Stemmed Persona Size D Tivanium [id number] - [id number] 1 - [id number] Implanted:Qty: 1 on 05/04/2023 by Michael Motta MD at [facility] Left: Knee [employer] [id number] 09/11/2032 [id number] / 07-7355-287- 01 / [id number] [employer] Persona 11mm Knee Left 6-7 C-D Insert Articular Vivacit-E Sterile [id number] - [id number] 1 - [id number] Implanted:Qty: 1 on 05/04/2023 by Michael Motta MD at [facility] Left: Knee [employer] [id number] 12/28/2025 [id number] / 79-6521-060- 11 / [id number] [employer] Persona 32mm Knee Component Patellar All Poly Latex Free [id number] - [id number] Implanted:Qty: 1 on 05/04/2023 by Michael Motta MD at [facility] [employer] 12/19/2027 [id number] / / [id number] [employer] Baseplate Tibial Knee Cemented Right Fixed Stemmed Persona Size C Tivanium [id number] - [id number] Implanted:Qty: 1 on 05/30/2024 by Michael Motta MD at [facility] Right: Knee [employer] [id number] 03/22/2033 [id number] / / [id number] [employer] Persona 29mm Knee Component Patellar All Poly Latex Free [id number] - [id number] Implanted:Qty: 1 on 05/30/2024 by Michael Motta MD at [facility] Right: Knee [employer] [id number] 12/18/2028 [id number] / / [id number] [employer] Persona 13mm Cruciate Retain Knee Right 6-7 Cd Insert Articular Latex Free [id number] - [id number] Implanted:Qty: 1 on 05/30/2024 by Michael Motta MD at [facility] Right: Patella [employer] [id number] 05/04/2025 [id number] / / [id number] [employer] Persona Cruciate Retaining Cemented Knee Right 7 Narrow Component [id number] - [id number] Implanted:Qty: 1 on 05/30/2024 by Michael Motta MD at [facility] Right: Knee [employer] [id number] 12/27/2033 [id number] / / [id number] [employer] Persona 14mm 30+ Mm Knee Tibia Taper Extension Stem [id number] - [id number] Implanted:Qty: 1 on 05/30/2024 by Michael Motta MD at [facility] Right: Knee [employer] [id number] 04/11/2034 [id number] / / [id number] Procedures Procedure Name Priority Date/Time Associated Diagnosis Comments COMPREHENSIVE METABOLIC PANEL Routine 08/23/2024 2:11 PM [employer]PER[employer] Encounter for medication monitoring CBC WITH AUTO DIFFERENTIAL Routine 08/23/2024 2:11 PM [employer]PER[employer] Encounter for medication monitoring VITAMIN B12 Routine 08/02/2024 7:41 AM SUPERVISOR [employer] Fatigue, unspecified type LIPID PANEL Routine 08/02/2024 7:41 AM [employer]PERVISOR [employer] Mixed hyperlipidemia HEMOGLOBIN A1C Routine 08/02/2024 7:41 AM SUPER[employer]OR [employer] Pre-diabetes COMPREHENSIVE METABOLIC PANEL Routine 08/02/2024 7:41 AM SUPERVISOR [employer] Mixed hyperlipidemia CBC WITH AUTO DIFFERENTIAL Routine 08/02/2024 7:41 AM SUPERVISOR [employer]ATING [employer]INT [employer] Fatigue, unspecified type TSH Routine 08/02/2024 7:41 AM SUPERVISOR [employer]ATING [employer]INT [employer]SEMBLY Fatigue, unspecified type ERYTHROCYTE SEDIMENTATION RATE Routine 07/30/2024 2:36 PM [employer]PERVISOR [employer]ATING [employer] 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) (HCC) CRP (ACUTE PHASE) Routine 07/30/2024 2:3 6 PM SUPERVISOR [employer]ATING [employer]INT [employer]SEMBLY 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) ([facility]) COMPREHENSIVE METABOLIC PANEL Routine 07/30/2024 2:36 PM SUPERVISOR [employer]ATING [employer]INT [employer]SEMBL[employer] Encounter for medication monitoring CBC WITH AUTO DIFFERENTIAL Routine 07/30/2024 2:36 PM SUPERVISOR [employer]ATING [employer]INT [employer]SEMBLY Encounter for medication monitoring XR KNEE RIGHT 3 VIEWS Schedule Routine, Read Routine (OP Routine) 07/24/2024 1:35 PM SUPERVISOR [employer]ATING [employer]INT [employer] Status post total knee replacement using cement, right MAGNESIUM Routine 06/14/2024 11:06 AM SUPERVISOR [employer]ATING [employer]INT [employer] Muscle cramping EGFR Routine 06/05/2024 4:17 AM SUPERVISOR [employer]ATING [employer]Y DIFFERENTIAL AUTO Routine 06/05/2024 4:1 7 AM SUPER[employer]OR [employer]INT [employer] CBC WITH AUTO DIFFERENTIAL Routine 06/05/2024 4:17 AM SUPERVISOR [employer]ATING [employer]INT [employer]SEM[employer]Y BASIC METABOLIC PANEL Routine 06/05/2024 4:17 AM SUPERVISOR [employer] EGFR Routine 06/04/2024 3:42 AM SUPERVISOR [employer]ATING [employer] DIFFERENTIAL AUTO Routine 06/04/2024 3:4 2 AM SUPERVISOR [employer] CBC WITH AUTO DIFFERENTIAL Routine 06/04/2024 3:42 AM SUPERVISOR [employer]ATING [employer]INT ASSEMBLY BASIC METABOLIC PANEL Routine 06/04/2024 3:42 AM SUPERVISOR [employer]ATING [employer]INT [employer]SEMBLY EGFR Routine 06/03/2024 6:18 AM SUPERVISOR [employer]ATING [employer]INT [employer]SEM[employer]Y DIFFERENTIAL AUTO Routine 06/03/2024 6:1 8 AM SUPERVISOR [employer]ATING [employer]INT [employer]SEMBL[employer] CBC WITH AUTO DIFFERENTIAL Routine 06/03/2024 6:18 AM SUPERVISOR [employer]ATING [employer] POINT ASSEMBLY BASIC METABOLIC PANEL Routine 06/03/2024 6:18 AM SUPERVISOR [employer]ATING [employer]INT [employer]SEMBLY EGFR Routine 06/02/2024 6:16 AM SUPERVISOR [employer]ATING [employer]INT [employer]SEMBLY DIFFERENTIAL AUTO Routine 06/02/2024 6:1 6 AM SUPERVISOR [employer]ATING [employer]INT [employer]SEMBLY CBC WITH AUTO DIFFERENTIAL Routine 06/02/2024 6:16 AM SUPERVISOR [employer]ATING [employer]INT [employer]SEMBLY BASIC METABOLIC PANEL Routine 06/02/2024 6:16 AM SUPERVISOR [employer]ATING [employer]INT [employer]SEMBLY DIFFERENTIAL AUTO Routine 06/01/2024 10:53 AM SUPERVISOR [employer]ATING [employer]INT [employer]SEMBLY CBC WITH AUTO DIFFERENTIAL Routine 06/01/2024 10:53 AM SUPERVISOR [employer]ATING [employer]INT [employer]Y EGFR Routine 06/01/2024 8:41 AM SUPERVISOR [employer]ATING [employer]INT [employer]SEM[employer]Y BASIC METABOLIC PANEL Routine 06/01/2024 8:41 AM SUPERVISOR [employer]ATING [employer]INT [employer]SEM[employer]Y EGFR Routine 05/31/2024 3:10 AM SUPERVISOR [employer]ATING [employer]INT [employer]Y DIFFERENTIAL AUTO Routine 05/31/2024 3:1 0 AM SUPERVISOR [employer]ATING [employer]INT [employer]SEMBLY CBC WITH AUTO DIFFERENTIAL Routine 05/31/2024 3:10 AM SUPERVISOR [employer]ATING [employer]Y BASIC METABOLIC PANEL Routine 05/31/2024 3:10 AM SUPERVISOR [employer]ATING [employer]INT [employer]SEM[employer]Y AL AN PROCEDURE PLACEHOLDER Routine 05/30/2024 2:25 PM SUPERVISOR [employer]ATING [employer]SEM[employer]Y AL AN PROCEDURE PLACEHOLDER Routine 05/30/2024 2:24 PM SUPERVISOR [employer]ATING [employer]INT [employer]SEMBLY AL AN PROCEDURE PLACEHOLDER Routine 05/30/2024 2:23 PM SUPERVISOR [employer]ATING [employer]INT [employer]SEMBLY AL AN PROCEDURE PLACEHOLDER Routine 05/30/2024 2:22 PM SUPERVISOR [employer]ATING [employer]INT [employer]BL[employer] XR KNEE RIGHT 1 OR 2 VIEWS ED Urgent/IP Urgent 05/30/2024 10:52 AM SUPERVISOR [employer]ATING [employer]INT [employer]SEMBLY AL AN PROCEDURE PLACEHOLDER Routine 05/30/2024 8:18 AM SUPERVISOR [employer]ATING [employer] POINT ASSEMBLY AL AN PROCEDURE PLACEHOLDER Routine 05/30/2024 8:17 AM SUPERVISOR PLATING AND POINT ASSEMBLY AL AN ELECTIVE SUPRAGLOTTIC AIRWAY Routine 05/30/2024 8:17 AM SUPERVISOR [employer]ATING AND POINT ASSEMBLY ARTHROPLASTY TOTAL KNEE 05/30/2024 7:34 AM SUPERVISOR [employer]ATING [employer]INT [employer]SEMBLY Primary osteoarthritis of right knee Case Notes RTKA POCUS INJ SCIATIC NERVE IP Routine 05/30/2024 7:13 AM SUPERVISOR [employer]ATING [employer]INT ASSEMBLY POCUS INJ FEMORAL NERVE IP Routine 05/30/2024 7:13 AM SUPERVISOR [employer]ATING AND POINT ASSEMBLY SCREENING MAMMOGRAM BILATERAL W DYLLAN Schedule Routine, Read Routine (OP Routine) 04/11/2024 7:33 AM CDT Breast cancer screening by mammogram DEXA AXIAL SKELETON BONE DENSITY 1 OR MORE SITES Schedule Routine, Read Routine (OP Routine) 04/12/2023 8:14 AM CDT COLONOSCOPY Routine 07/27/2021 HEPATITIS C ANTIBODY Routine 06/04/2020 10:29 AM SUPERVISOR [employer]ATING AND POINT ASSEMBLY Encounter for screening for other viral diseases Chronic fatigue from Last 3 Months or Most Recently Relevant to Health Maintenance Results * CBC with auto differential (08/23/2024 2:11 PM SUPERVISOR [employer]ATING [employer] POINT ASSEMBLY) WBC 4.8 3.8 - 10.8 Thousand/u L [...] [facility] Blood 08/23/2024 2:11 PM SUPERVISOR [employer]ATING [employer] POINT ASSEMBLY 08/23/2024 2:11 PM SUPERVISOR PLATING AND POINT ASSEMBLY Sangita OSMAN LAB BLOOD ORDERABLES Vy l Result [facility] [address] [place] [address] * (ABNORMAL) Comprehensive metabolic panel (08/23/2024 2:11 PM SUPERVISOR PLATING AND POINT ASSEMBLY) [facility] Glucose 188(H) 65 - 99 mg/dL [facility] [...] [facility] Blood 08/23/2024 2:11 PM SUPERVISOR PLATING AND POINT ASSEMBLY 08/23/2024 2:11 PM SUPERVISOR PLATING AND POINT ASSEMBLY us Sangita OSMAN LAB BLOOD ORDERABLES Vy l Result [facility] [address] [place] [address] * (ABNORMAL) CBC with auto differential (08/02/2024 7:41 AM SUPERVISOR PLATING AND POINT ASSEMBLY) WBC 4.0 3.8 - 10.8 Thousand/u L [...] [facility] Blood 08/02/2024 7:41 AM SUPERVISOR PLATING AND POINT ASSEMBLY 08/02/2024 7:42 AM SUPERVISOR PLATING AND POINT ASSEMBLY us Alee OSMAN LAB BLOOD ORDERABLES Final Result [facility] [address] [place] [address] * TSH (08/02/2024 7:41 AM SUPERVISOR PLATING AND POINT ASSEMBLY) TSH 1.57 0.40 - 4.50 mIU/L [facility] Blood 08/02/2024 7:41 AM SUPERVISOR PLATING AND POINT ASSEMBLY 08/02/2024 7:42 AM SUPERVISOR PLATING AND POINT ASSEMBLY Alee OSMAN LAB BLOOD ORDERABLES Final Result [facility] [address] [place] [address] * Hemoglobin A1c (08/02/2024 7:41 AM SUPERVISOR PLATING AND POINT ASSEMBLY) Hgb A1C 5.4 <5.7 % of total Hgb [facility] Comment: For the purpose of screening for the presence of diabetes: <5.7% Consistent with the absence of diabetes 5.7-6.4% Consistent with increased risk for diabetes (prediabetes) > or =6.5% Consistent with diabetes This assay result is consistent with a decreased risk of diabetes. Currently, no consensus exists regarding use of hemoglobin A1c for diagnosis of diabetes in children. According to [place] Diabetes Association (ADA) guidelines, hemoglobin A1c <7.0% represents optimal control in non- diabetic patients. Different metrics may apply to specific patient populations. Standards of Medical Care in Diabetes(ADA). Blood 08/02/2024 7:41 AM SUPERVISOR PLATING AND POINT ASSEMBLY 08/02/2024 7:42 AM SUPERVISOR PLATING AND POINT ASSEMBLY Alee OSMAN LAB BLOOD ORDERABLES Final Result Performing Organization Address [facility] Co de Phone Number [facility] [address] [place] [address] * Vitamin B12 (08/02/2024 7:41 AM SUPERVISOR PLATING AND POINT ASSEMBLY) Vitamin B12 349 200 - 1,100 pg/mL [...] will have symptoms. Blood 08/02/2024 7:41 AM SUPERVISOR PLATING AND POINT ASSEMBLY 08/02/2024 7:42 AM SUPERVISOR PLATING AND POINT ASSEMBLY Alee OSMAN LAB BLOOD ORDERABLES Final Result Performing Organization Address City/[facility]/ZIP Co de Phone Number [facility] [address] [place] [address] * Lipid panel (08/02/2024 7:41 AM SUPERVISOR PLATING AND POINT ASSEMBLY) Cholesterol 127 <200 mg/dL [facility] [...] LDL-C. Barry FREITAS et al. ELAINE. 2013;310(19): 9476-8396 (http://education.Markafoni/faq/DEF601) Chol/HDL ratio 1.7 <5.0 (calc) [facility] Non-HDL, (LDL+VLDL) 52 <130 mg/dL (calc) [facility] Comment: For patients with diabetes plus 1 major ASCVD risk factor, treating to a non-HDL-C goal of <100 mg/dL (LDL-C of <70 mg/dL) is considered a therapeutic option. Blood 08/02/2024 7:41 AM SUPERVISOR PLATING AND POINT ASSEMBLY 08/02/2024 7:42 AM SUPERVISOR PLATING AND POINT ASSEMBLY Alee OSMAN LAB BLOOD ORDERABLES Final Result Performing Organization Address [facility]/ZIP Co de Phone Number [facility] [address] [address] [place] [phone] * Comprehensive metabolic panel (08/02/2024 7:41 AM SUPERVISOR PLATING AND POINT ASSEMBLY) Glucose 99 65 - 99 mg/dL [facility] [...] [facility] Blood 08/02/2024 7:41 AM SUPERVISOR PLATING AND POINT ASSEMBLY 08/02/2024 7:42 AM SUPERVISOR PLATING AND POINT ASSEMBLY us Alee OSMAN LAB BLOOD ORDERABLES Final Result [facility] [address] [address] [address] * CBC with auto differential (07/30/2024 2:36 PM SUPERVISOR PLATING AND POINT ASSEMBLY) WBC 6.4 3.8 - 10.8 Thousand/u L [...] [facility] Blood 07/30/2024 2:36 PM SUPERVISOR PLATING AND POINT ASSEMBLY 07/30/2024 2:36 PM SUPERVISOR PLATING AND POINT ASSEMBLY us Sangita OSMAN LAB BLOOD ORDERABLES Vy l Result [facility] [address] [address] [address] * Erythrocyte sedimentation rate (07/30/2024 2:36 PM SUPERVISOR PLATING AND POINT ASSEMBLY) Erythrocyte sedimentation rate 11 < OR = 30 mm/h [facility] Blood 07/30/2024 2:36 PM SUPERVISOR PLATING AND POINT ASSEMBLY 07/30/2024 2:36 PM SUPERVISOR PLATING AND POINT ASSEMBLY [facility] Magali OSMAN LAB BLOOD ORDERABLES Vy l Result Performing Organization Address [facility]/ZIP Co de Phone Number [facility] [address] [facility] [place] [address] * CRP (acute phase) (07/30/2024 2:36 PM SUPERVISOR PLATING AND POINT ASSEMBLY) [facility] C-RP <3.0 <8.0 mg/L [facility] Blood 07/30/2024 2:36 PM SUPERVISOR PLATING AND POINT ASSEMBLY 07/30/2024 2:36 PM SUPERVISOR PLATING AND POINT ASSEMBLY [facility] Magali Farrar [place] LAB BLOOD ORDERABLES Vy l Result Performing Organization Address [facility] Co de Phone Number [facility] [address] [place] [address] * (ABNORMAL) Comprehensive metabolic panel (07/30/2024 2:36 PM SUPERVISOR PLATING AND POINT ASSEMBLY) [facility] Glucose 115(H) 65 - 99 mg/dL [facility] [...] [facility] Blood 07/30/2024 2:36 PM SUPERVISOR PLATING AND POINT ASSEMBLY 07/30/2024 2:36 PM SUPERVISOR PLATING AND POINT ASSEMBLY us Sangita OSMAN LAB BLOOD ORDERABLES Vy l Result [facility] [address] [place] [address] * XR Knee Right 3 Views (07/24/2024 1:35 PM SUPERVISOR PLATING [employer] POINT ASSEMBLY) Anatomical Region Laterality Modality Lower Extremities, Knee Right Computed Radiography 07/25/2024 7:16 AM SUPERVISOR [employer]ATING [employer] POINT ASSEMBLY Narrative 07/25/2024 7:18 AM SUPERVISOR [employer]ATING [employer] POINT ASSEMBLY EXAM DESCRIPTION: XR KNEE RIGHT 3 VIEWS [...] signed by Elton CABA T: Report ID: [id number] Reading Location: [id number] Procedure Note Elton Jonas MD - 07/25/2024 [...] signed by Elton CABA T: Report ID: [id number] Reading Location: [place] [address] Michael Motta MD IMG XR PROCEDURES Final Re sult * Magnesium (06/14/2024 11:06 AM SUPERVISOR PLATING AND POINT ASSEMBLY) Pathologist [facility] Magnesium 2.0 1.5 - 2.5 mg/dL [facility] Blood 06/14/2024 11:0 6 AM SUPERVISOR PLATING AND POINT ASSEMBLY 06/14/2024 11:06 AM SUPERVISOR PLATING AND POINT ASSEMBLY Artis Grewal MD LAB BLOOD ORDERABLES Final Res ult [facility] [address] [facility] [place] [address] * eGFR (06/05/2024 4:17 AM SUPERVISOR PLATING AND POINT ASSEMBLY) eGFR 84 >=60 mL/min/1. 73 m2 Comment: [...] last reviewed 2021. Blood 06/05/2024 4:17 AM SUPERVISOR PLATING AND POINT ASSEMBLY 06/05/2024 5:01 AM SUPERVISOR PLATING AND POINT ASSEMBLY Michael Motta MD LAB BLOOD ORDERABLES Final Result [facility] [address] [facility] Department [place] [address] * Differential, auto (06/05/2024 4:17 AM SUPERVISOR PLATING AND POINT ASSEMBLY) Pathologist [facility] Neutrophil abs 3.2 1.5 - 6.5 K/cumm Imm gran abs 0.0 0.0 - 0.1 K/cumm [facility] Lymphocyte abs 0.9 0.8 - 3.3 K/cumm [facility] Monocyte abs 0.7 0.2 - 0.8 K/cumm [facility] Eosinophil abs 0.2 0.0 - 0.5 K/cumm [facility] Basophil abs 0.0 0.0 - 0.1 K/cumm [facility] Neutrophil pct 63.8 % [facility] Comment: Interpretive Data Percent cell count reference ranges are not reported, since discordance with absolute values may lead to misinterpretation of CBC data. Current Interpretive Data was last revised on 2017. Imm gran pct 0.2 % [facility] Comment: Interpretive Data Percent cell count reference ranges are not reported, since discordance with absolute values may lead to misinterpretation of CBC data. Current Interpretive Data was last revised on 2017. Lymphocyte pct 17.1 % [facility] Comment: Interpretive Data Percent cell count reference ranges are not reported, since discordance with absolute values may lead to misinterpretation of CBC data. Current Interpretive Data was last revised on 2017. Monocyte pct 13.9 % [facility] Comment: Interpretive Data Percent cell count reference ranges are not reported, since discordance with absolute values may lead to misinterpretation of CBC data. Current Interpretive Data was last revised on 2017. Eosinophil pct 4.6 % [facility] Comment: Interpretive Data Percent cell count reference ranges are not reported, since discordance with absolute values may lead to misinterpretation of CBC data. Current Interpretive Data was last revised on 2017. Basophil pct 0.4 % [facility] Comment: Interpretive Data Percent cell count reference ranges are not reported, since discordance with absolute values may lead to misinterpretation of CBC data. Current Interpretive Data was last revised on 2017. Blood 06/05/2024 4:17 AM [employer] 06/05/2024 5:01 AM [employer] Michael Motta MD LAB BLOOD ORDERABLES Final Result [facility] [address] Department [place] [address] * (ABNORMAL) CBC with auto differential (06/05/2024 4:17 AM SUPERVIS[employer]ATING [employer]) WBC 5.0 3.8 - 9.9 K/cumm Hgb 11.2(L) 11.9 - 15.5 g/dL [facility] Hct 34.3(L) 35.6 - 45.5 % [facility] Plt 201 150 - 400 K/cumm [facility] MPV 10.4 9.1 - 12.3 fL [facility] RBC 3.39(L) 3.90 - 5.20 M/cumm [facility] MCV 101.2(H) 81.3 - 96.4 fL [facility] MCH 33.0 27.1 - 33.3 pg [facility] MCHC 32.7 32.3 - 35.7 g/dL [facility] RDW CV 14.1 11.1 - 14.9 % [facility] RDW SD 51.8(H) 35.7 - 48.1 fL [facility] NRBC abs 0.00 0.00 - 0.01 K/cumm [facility] Blood 06/05/2024 4:17 AM [employer] 06/05/2024 5:01 AM [employer]PER[employer] Michael Motta MD LAB BLOOD ORDERABLES Final Result Performing Organization Address City/[facility]/ZIP Co de Phone Number [facility] [address] [facility] [facility] Department [place] [address] * Basic metabolic panel (06/05/2024 4:17 AM SUPERVIS[employer]ATING [employer]) Sodium 138 135 - 145 mmol/L Potassium, pl 4.3 3.3 - 4.9 mmol/L [facility] Comment:Hemolyzed; Potassium value may be falsely elevated by as much as 1.0 mmol/L. Suggest redraw and reanalysis. Chloride 105 97 - 110 mmol/L [facility] CO2 24 22 - 32 mmol/L [facility] Anion gap 9 2 - 15 mmol/L [facility] BUN 16 6 - 25 mg/dL [facility] Creatinine 0.77 0.60 - 1.10 mg/dL [facility] Glucose 98 70 - 199 mg/dL [facility] Comment: Interpretive Data Fasting glucose >/= [...] 2022. Calcium 9.5 8.5 - 10.3 mg/dL [facility] Blood 06/05/2024 4:17 AM [employer] 06/05/2024 5:01 AM [employer]PER[employer]ATING [employer] Michael Motta MD LAB BLOOD ORDERABLES Final Result Performing Organization Address City/[facility] Co de Phone Number [facility] [address] Department [place] [address] * eGFR (06/04/2024 3:42 AM SUPERVISOR [employer]ATING [employer]) [facility] eGFR >90 >=60 mL/min/1. 73 m2 Comment: [...] last reviewed 2021. Blood 06/04/2024 3:42 AM [employer]PER[employer]ATING [employer] 06/04/2024 4:19 AM [employer]PER[employer]ATING [employer] Michael Motta MD LAB BLOOD ORDERABLES Final Result [facility] [address] Department [place] [address] * Differential, auto (06/04/2024 3:42 AM SUPERVISOR [employer]ATING [employer]SEM[employer]) [facility] Neutrophil abs 2.4 1.5 - 6.5 K/cumm Imm gran abs 0.0 0.0 - 0.1 K/cumm [facility] Lymphocyte abs 0.9 0.8 - 3.3 K/cumm [facility] Monocyte abs 0.6 0.2 - 0.8 K/cumm [facility] Eosinophil abs 0.2 0.0 - 0.5 K/cumm [facility] Basophil abs 0.0 0.0 - 0.1 K/cumm [facility] Neutrophil pct 58.4 % [facility] Comment: Interpretive Data Percent cell count reference ranges are not reported, since discordance with absolute values may lead to misinterpretation of CBC data. Current Interpretive Data was last revised on 2017. Imm gran pct 0.2 % [facility] Comment: Interpretive Data Percent cell count reference ranges are not reported, since discordance with absolute values may lead to misinterpretation of CBC data. Current Interpretive Data was last revised on 2017. Lymphocyte pct 21.0 % [facility] Comment: Interpretive Data Percent cell count reference ranges are not reported, since discordance with absolute values may lead to misinterpretation of CBC data. Current Interpretive Data was last revised on 2017. Monocyte pct 14.3 % [facility] Comment: Interpretive Data Percent cell count reference ranges are not reported, since discordance with absolute values may lead to misinterpretation of CBC data. Current Interpretive Data was last revised on 2017. Eosinophil pct 5.1 % [facility] Comment: Interpretive Data Percent cell count reference ranges are not reported, since discordance with absolute values may lead to misinterpretation of CBC data. Current Interpretive Data was last revised on 2017. Basophil pct 1.0 % [facility] Comment: Interpretive Data Percent cell count reference ranges are not reported, since discordance with absolute values may lead to misinterpretation of CBC data. Current Interpretive Data was last revised on 2017. Blood 06/04/2024 3:42 AM [employer]ATING [employer] 06/04/2024 4:19 AM [employer]PER[employer]ATING [employer] Michael Motta MD LAB BLOOD ORDERABLES Final Result [facility] [address] [facility] Department [place] [address] * (ABNORMAL) CBC with auto differential (06/04/2024 3:42 AM SUPERVISOR [employer]ATING [employer]) WBC 4.1 3.8 - 9.9 K/cumm Hgb 11.0(L) 11.9 - 15.5 g/dL [facility] Hct 34.3(L) 35.6 - 45.5 % [facility] Plt 180 150 - 400 K/cumm [facility] MPV 10.2 9.1 - 12.3 fL [facility] RBC 3.30(L) 3.90 - 5.20 M/cumm [facility] MCV 103.9(H) 81.3 - 96.4 fL [facility] MCH 33.3 27.1 - 33.3 pg [facility] MCHC 32.1(L) 32.3 - 35.7 g/dL [facility] RDW CV 14.3 11.1 - 14.9 % [facility] RDW SD 54.4(H) 35.7 - 48.1 fL [facility] NRBC abs 0.00 0.00 - 0.01 K/cumm [facility] Blood 06/04/2024 3:42 AM SUPER[employer]ATING [employer] 06/04/2024 4:19 AM SUPER[employer]OR [employer]ATING [employer] Michael Motta MD LAB BLOOD ORDERABLES Final Result Performing Organization Address City/State/[facility] Co de Phone Number [facility] [address] [facility] Department [place] [address] * Basic metabolic panel (06/04/2024 3:42 AM SUPERVISOR [employer]ATING [employer]) Sodium 140 135 - 145 mmol/L Potassium, pl 4.1 3.3 - 4.9 mmol/L [facility] Chloride 108 97 - 110 mmol/L [facility] CO2 24 22 - 32 mmol/L [facility] Anion gap 8 2 - 15 mmol/L [facility] BUN 15 6 - 25 mg/dL [facility] Creatinine 0.68 0.60 - 1.10 mg/dL [facility] Glucose 92 70 - 199 mg/dL [facility] Comment: Interpretive Data Fasting glucose >/= [...] 10.3 mg/dL [facility] Blood 06/04/2024 3:42 AM [employer]PER[employer]ATING [employer] 06/04/2024 4:19 AM [employer]PER[employer]ATING [employer] Michael Motta MD LAB BLOOD ORDERABLES Final Result [facility] [place] [address] * eGFR (06/03/2024 6:18 AM SUPERVISOR [employer]ATING [employer]) eGFR >90 >=60 mL/min/1. 73 m2 Comment: [...] last reviewed 2021. Blood 06/03/2024 6:18 AM SUPER[employer]ATING [employer] 06/03/2024 6:49 AM SUPER[employer]OR [employer]ATING [employer] Michael Motta MD LAB BLOOD ORDERABLES Final Result Performing Organization Address City/[facility]/ZIP Co de Phone Number [facility] [place] [place] [address] * (ABNORMAL) Differential, auto (06/03/2024 6:18 AM SUPERVISOR [employer]ATING [employer]) Neutrophil abs 3.4 1.5 - 6.5 K/cumm Imm gran abs 0.0 0.0 - 0.1 K/cumm [facility] Lymphocyte abs 0.7(L) 0.8 - 3.3 K/cumm [facility] Monocyte abs 0.6 0.2 - 0.8 K/cumm [facility] Eosinophil abs 0.2 0.0 - 0.5 K/cumm [facility] Basophil abs 0.0 0.0 - 0.1 K/cumm [facility] Neutrophil pct 68.6 % [facility] Comment: Interpretive Data Percent cell count reference ranges are not reported, since discordance with absolute values may lead to misinterpretation of CBC data. Current Interpretive Data was last revised on 2017. Imm gran pct 0.2 % [facility] Comment: Interpretive Data Percent cell count reference ranges are not reported, since discordance with absolute values may lead to misinterpretation of CBC data. Current Interpretive Data was last revised on 2017. Lymphocyte pct 14.4 % [facility] Comment: Interpretive Data Percent cell count reference ranges are not reported, since discordance with absolute values may lead to misinterpretation of CBC data. Current Interpretive Data was last revised on 2017. Monocyte pct 11.9 % [facility] Comment: Interpretive Data Percent cell count reference ranges are not reported, since discordance with absolute values may lead to misinterpretation of CBC data. Current Interpretive Data was last revised on 2017. Eosinophil pct 4.3 % [facility] Comment: Interpretive Data Percent cell count reference ranges are not reported, since discordance with absolute values may lead to misinterpretation of CBC data. Current Interpretive Data was last revised on 2017. Basophil pct 0.6 % [facility] Comment: Interpretive Data Percent cell count reference ranges are not reported, since discordance with absolute values may lead to misinterpretation of CBC data. Current Interpretive Data was last revised on 2017. Blood 06/03/2024 6:18 AM [employer]PER[employer]ATING [employer] 06/03/2024 6:48 AM [employer]PER[employer]ATING [employer] Michael Motat MD LAB BLOOD ORDERABLES Final Result [facility] [address] Department [place] [address] * (ABNORMAL) CBC with auto differential (06/03/2024 6:18 AM SUPERVISOR PLATING [employer] POINT ASSEMBLY) [facility] WBC 4.9 3.8 - 9.9 K/cumm Hgb 11.2(L) 11.9 - 15.5 g/dL [facility] Hct 34.7(L) 35.6 - 45.5 % [facility] Plt 171 150 - 400 K/cumm [facility] MPV 10.3 9.1 - 12.3 fL [facility] RBC 3.38(L) 3.90 - 5.20 M/cumm [facility] MCV 102.7(H) 81.3 - 96.4 fL [facility] MCH 33.1 27.1 - 33.3 pg [facility] MCHC 32.3 32.3 - 35.7 g/dL [facility] RDW CV 14.6 11.1 - 14.9 % [facility] RDW SD 54.4(H) 35.7 - 48.1 fL [facility] NRBC abs 0.00 0.00 - 0.01 K/cumm [facility] Blood 06/03/2024 6:18 AM SUPERVISOR [employer]ATING [employer] 06/03/2024 6:48 AM SUPERVISOR [employer]ATING [employer] Michael Motta MD LAB BLOOD ORDERABLES Final Result [facility] [address] [facility] [place] [address] * Basic metabolic panel (06/03/2024 6:18 AM SUPERVISOR PLATING [employer] POINT ASSEMBL[employer]) [facility] Sodium 139 135 - 145 mmol/L Potassium, pl 4.1 3.3 - 4.9 mmol/L [facility] Chloride 108 97 - 110 mmol/L [facility] CO2 23 22 - 32 mmol/L [facility] Anion gap 8 2 - 15 mmol/L [facility] BUN 15 6 - 25 mg/dL [facility] Creatinine 0.64 0.60 - 1.10 mg/dL [facility] Glucose 103 70 - 199 mg/dL [facility] Comment: Interpretive Data Fasting glucose >/= [...] 10.3 mg/dL [facility] Blood 06/03/2024 6:18 AM SUPER[employer]OR [employer]ATING [employer] 06/03/2024 6:49 AM SUPERVISOR [employer]ATING [employer] Michael Motta MD LAB BLOOD ORDERABLES Final Result [facility] [address] [facility] Department [place] [address] * eGFR (06/02/2024 6:16 AM SUPERVISOR [employer]ATING [employer]) eGFR >90 >=60 mL/min/1. 73 m2 Comment: [...] last reviewed 2021. Blood 06/02/2024 6:16 AM SUPER[employer]OR [employer]ATING [employer] 06/02/2024 6:50 AM SUPERVISOR [employer]ATING [employer] us Michael Motta MD LAB BLOOD ORDERABLES Final Result [facility] [address] [facility] Department of Laboratories [place], [place] [id number] * Differential, auto (06/02/2024 6:16 AM SUPERVISOR [employer]ATING [employer]INT [employer]SEMBL[employer]) Neutrophil abs 3.9 1.5 - 6.5 K/cumm Imm gran abs 0.0 0.0 - 0.1 K/cumm [facility] Lymphocyte abs 0.8 0.8 - 3.3 K/cumm [facility] Monocyte abs 0.8 0.2 - 0.8 K/cumm [facility] Eosinophil abs 0.1 0.0 - 0.5 K/cumm [facility] Basophil abs 0.0 0.0 - 0.1 K/cumm [facility] Neutrophil pct 69.0 % [facility] Comment: Interpretive Data Percent cell count reference ranges are not reported, since discordance with absolute values may lead to misinterpretation of CBC data. Current Interpretive Data was last revised on 2017. Imm gran pct 0.4 % [facility] Comment: Interpretive Data Percent cell count reference ranges are not reported, since discordance with absolute values may lead to misinterpretation of CBC data. Current Interpretive Data was last revised on 2017. Lymphocyte pct 14.3 % [facility] Comment: Interpretive Data Percent cell count reference ranges are not reported, since discordance with absolute values may lead to misinterpretation of CBC data. Current Interpretive Data was last revised on 2017. Monocyte pct 14.0 % [facility] Comment: Interpretive Data Percent cell count reference ranges are not reported, since discordance with absolute values may lead to misinterpretation of CBC data. Current Interpretive Data was last revised on 2017. Eosinophil pct 1.9 % [facility] Comment: Interpretive Data Percent cell count reference ranges are not reported, since discordance with absolute values may lead to misinterpretation of CBC data. Current Interpretive Data was last revised on 2017. Basophil pct 0.4 % [facility] Comment: Interpretive Data Percent cell count reference ranges are not reported, since discordance with absolute values may lead to misinterpretation of CBC data. Current Interpretive Data was last revised on 2017. Blood 06/02/2024 6:16 AM [employer]PER[employer]ATING [employer] 06/02/2024 6:51 AM SUPERVISOR [employer]ATING [employer] Michael Motta MD LAB BLOOD ORDERABLES Final Result Performing Organization Address [facility] Co de Phone Number [facility] [address] [address] * (ABNORMAL) CBC with auto differential (06/02/2024 6:16 AM SUPERVISOR PLATING [employer] POINT ASSEMBLY) Pathologist [facility] WBC 5.7 3.8 - 9.9 K/cumm Hgb 10.9(L) 11.9 - 15.5 g/dL [facility] Hct 34.9(L) 35.6 - 45.5 % [facility] Plt 134(L) 150 - 400 K/cumm [facility] MPV 10.7 9.1 - 12.3 fL [facility] RBC 3.30(L) 3.90 - 5.20 M/cumm [facility] MCV 105.8(H) 81.3 - 96.4 fL [facility] MCH 33.0 27.1 - 33.3 pg [facility] MCHC 31.2(L) 32.3 - 35.7 g/dL [facility] RDW CV 14.7 11.1 - 14.9 % [facility] RDW SD 57.2(H) 35.7 - 48.1 fL [facility] NRBC abs 0.00 0.00 - 0.01 K/cumm [facility] Blood 06/02/2024 6:16 AM SUPERVISOR [employer]ATING [employer] 06/02/2024 6:51 AM SUPERVISOR [employer]ATING [employer]INT [employer]SEM[employer] Michael Motta MD LAB BLOOD ORDERABLES Final Result Performing Organization Address [facility] Co de Phone Number [facility] [address] * (ABNORMAL) Basic metabolic panel (06/02/2024 6:16 AM SUPERVISOR PLATING [employer] POINT ASSEMBLY) Pathologist [facility] Sodium 138 135 - 145 mmol/L Potassium, pl 4.5 3.3 - 4.9 mmol/L [facility] Comment:Hemolyzed; Potassium value may be falsely elevated by as much as 1.0 mmol/L. Suggest redraw and reanalysis. Chloride 109 97 - 110 mmol/L [facility] CO2 20(L) 22 - 32 mmol/L [facility] Anion gap 9 2 - 15 mmol/L [facility] BUN 16 6 - 25 mg/dL [facility] Creatinine 0.67 0.60 - 1.10 mg/dL [facility] Glucose 87 70 - 199 mg/dL [facility] Comment: Interpretive Data Fasting glucose >/= [...] 2022. Calcium 7.9(L) 8.5 - 10.3 mg/dL [facility] Blood 06/02/2024 6:16 AM SUPERVISOR [employer]ATING [employer]INT [employer] 06/02/2024 6:50 AM SUPERVISOR [employer]ATING [employer]INT [employer]SEM[employer] us Michael Motta MD LAB BLOOD ORDERABLES Final Result [facility] [address] [facility] Department of Laboratories [place], [place] [id number] * (ABNORMAL) Differential, auto (06/01/2024 10:53 AM SUPERVISOR PLATING [employer] POINT ASSEMBLY) Pathologist [facility] Neutrophil abs 4.3 1.5 - 6.5 K/cumm Imm gran abs 0.0 0.0 - 0.1 K/cumm [facility] Lymphocyte abs 1.1 0.8 - 3.3 K/cumm [facility] Monocyte abs 1.0(H) 0.2 - 0.8 K/cumm [facility] Eosinophil abs 0.1 0.0 - 0.5 K/cumm [facility] Basophil abs 0.0 0.0 - 0.1 K/cumm [facility] Neutrophil pct 65.4 % [facility] Comment: Interpretive Data Percent cell count reference ranges are not reported, since discordance with absolute values may lead to misinterpretation of CBC data. Current Interpretive Data was last revised on 2017. Imm gran pct 0.3 % [facility] Comment: Interpretive Data Percent cell count reference ranges are not reported, since discordance with absolute values may lead to misinterpretation of CBC data. Current Interpretive Data was last revised on 2017. Lymphocyte pct 17.4 % [facility] Comment: Interpretive Data Percent cell count reference ranges are not reported, since discordance with absolute values may lead to misinterpretation of CBC data. Current Interpretive Data was last revised on 2017. Monocyte pct 15.2 % [facility] Comment: Interpretive Data Percent cell count reference ranges are not reported, since discordance with absolute values may lead to misinterpretation of CBC data. Current Interpretive Data was last revised on 2017. Eosinophil pct 1.2 % [facility] Comment: Interpretive Data Percent cell count reference ranges are not reported, since discordance with absolute values may lead to misinterpretation of CBC data. Current Interpretive Data was last revised on 2017. Basophil pct 0.5 % [facility] Comment: Interpretive Data Percent cell count reference ranges are not reported, since discordance with absolute values may lead to misinterpretation of CBC data. Current Interpretive Data was last revised on 2017. Blood 06/01/2024 10:5 3 AM [employer]ATING [employer] 06/01/2024 10:58 AM SUPERVISOR [employer]ATING [employer] Michael Motta MD LAB BLOOD ORDERABLES Final Result [facility] [address] [facility] Department [place] [address] * (ABNORMAL) CBC with auto differential (06/01/2024 10:53 AM SUPERVISOR PLATING [employer]INT ASSEMBL[employer]) WBC 6.6 3.8 - 9.9 K/cumm Hgb 10.6(L) 11.9 - 15.5 g/dL [facility] Hct 32.6(L) 35.6 - 45.5 % [facility] Plt 156 150 - 400 K/cumm [facility] MPV 10.1 9.1 - 12.3 fL [facility] RBC 3.21(L) 3.90 - 5.20 M/cumm [facility] MCV 101.6(H) 81.3 - 96.4 fL [facility] MCH 33.0 27.1 - 33.3 pg [facility] MCHC 32.5 32.3 - 35.7 g/dL [facility] RDW CV 14.5 11.1 - 14.9 % [facility] RDW SD 53.6(H) 35.7 - 48.1 fL [facility] NRBC abs 0.00 0.00 - 0.01 K/cumm [facility] Blood 06/01/2024 10:5 3 AM [employer]PER[employer]ATING [employer] 06/01/2024 10:58 AM SUPERVISOR [employer]ATING [employer] Michael Motta MD LAB BLOOD ORDERABLES Final Result [facility] [address] [facility] Department [place] [address] * eGFR (06/01/2024 8:41 AM SUPERVISOR [employer]ATING [employer]) eGFR >90 >=60 mL/min/1. 73 m2 Comment: [...] last reviewed 2021. Blood 06/01/2024 8:41 AM SUPERVISOR [employer]ATING [employer] 06/01/2024 8:45 AM SUPERVISOR [employer]ATING [employer]INT [employer]SEM[employer] Michael Motta MD LAB BLOOD ORDERABLES Final Result [address] [place] [address] * (ABNORMAL) Basic metabolic panel (06/01/2024 8:41 AM SUPERVISOR PLATING AND POINT ASSEMBLY) [facility] Sodium 139 135 - 145 mmol/L Potassium, pl 4.1 3.3 - 4.9 mmol/L [facility] Chloride 111(H) 97 - 110 mmol/L [facility] CO2 21(L) 22 - 32 mmol/L [facility] Anion gap 7 2 - 15 mmol/L [facility] BUN 20 6 - 25 mg/dL [facility] Creatinine 0.64 0.60 - 1.10 mg/dL [facility] Glucose 107 70 - 199 mg/dL [facility] Comment: Interpretive Data Fasting glucose >/= [...] 2022. Calcium 8.6 8.5 - 10.3 mg/dL [facility] Blood 06/01/2024 8:41 AM SUPERVISOR [employer]ATING [employer] 06/01/2024 8:45 AM SUPERVISOR [employer]ATING [employer]INT [employer]SEM[employer] Michael Motta MD LAB BLOOD ORDERABLES Final Result [address] [place] [address] * eGFR (05/31/2024 3:10 AM SUPERVISOR PLATING AND POINT ASSEMBLY) Pathologist [facility] eGFR >90 >=60 mL/min/1. 73 m2 Comment: [...] last reviewed 2021. Blood 05/31/2024 3:10 AM SUPERVISOR [employer]ATING [employer] 05/31/2024 3:28 AM SUPERVISOR PLATING [employer]INT [employer]SEM[employer] Michael Motta MD LAB BLOOD ORDERABLES Final Result [facility] [address] [facility] Department [place] [address] * (ABNORMAL) Differential, auto (05/31/2024 3:10 AM SUPERVISOR PLATING AND POINT ASSEMBLY) Pathologist [facility] Neutrophil abs 8.1(H) 1.5 - 6.5 K/cumm Imm gran abs 0.0 0.0 - 0.1 K/cumm [facility] Lymphocyte abs 0.4(L) 0.8 - 3.3 K/cumm [facility] Monocyte abs 0.4 0.2 - 0.8 K/cumm [facility] Eosinophil abs 0.0 0.0 - 0.5 K/cumm [facility] Basophil abs 0.0 0.0 - 0.1 K/cumm [facility] Neutrophil pct 91.1 % [facility] Comment: Interpretive Data Percent cell count reference ranges are not reported, since discordance with absolute values may lead to misinterpretation of CBC data. Current Interpretive Data was last revised on 2017. Imm gran pct 0.3 % [facility] Comment: Interpretive Data Percent cell count reference ranges are not reported, since discordance with absolute values may lead to misinterpretation of CBC data. Current Interpretive Data was last revised on 2017. Lymphocyte pct 4.0 % [facility] Comment: Interpretive Data Percent cell count reference ranges are not reported, since discordance with absolute values may lead to misinterpretation of CBC data. Current Interpretive Data was last revised on 2017. Monocyte pct 4.4 % [facility] Comment: Interpretive Data Percent cell count reference ranges are not reported, since discordance with absolute values may lead to misinterpretation of CBC data. Current Interpretive Data was last revised on 2017. Eosinophil pct 0.1 % [facility] Comment: Interpretive Data Percent cell count reference ranges are not reported, since discordance with absolute values may lead to misinterpretation of CBC data. Current Interpretive Data was last revised on 2017. Basophil pct 0.1 % [facility] Comment: Interpretive Data Percent cell count reference ranges are not reported, since discordance with absolute values may lead to misinterpretation of CBC data. Current Interpretive Data was last revised on 2017. Blood 05/31/2024 3:10 AM SUPERVISOR PLATING AND POINT ASSEMBLY 05/31/2024 3:28 AM SUPERVISOR PLATING AND POINT ASSEMBLY Michael Motta MD LAB BLOOD ORDERABLES Final Result [facility] [address] [facility] Department [place] [address] * (ABNORMAL) CBC with auto differential (05/31/2024 3:10 AM SUPERVISOR PLATING AND POINT ASSEMBLY) WBC 8.9 3.8 - 9.9 K/cumm Hgb 11.9 11.9 - 15.5 g/dL [facility] Hct 36.5 35.6 - 45.5 % [facility] Plt 154 150 - 400 K/cumm [facility] MPV 9.8 9.1 - 12.3 fL [facility] RBC 3.53(L) 3.90 - 5.20 M/cumm [facility] MCV 103.4(H) 81.3 - 96.4 fL [facility] MCH 33.7(H) 27.1 - 33.3 pg [facility] MCHC 32.6 32.3 - 35.7 g/dL [facility] RDW CV 14.5 11.1 - 14.9 % [facility] RDW SD 54.6(H) 35.7 - 48.1 fL [facility] NRBC abs 0.00 0.00 - 0.01 K/cumm [facility] Blood 05/31/2024 3:10 AM SUPERVISOR PLATING AND POINT ASSEMBLY 05/31/2024 3:28 AM SUPERVISOR PLATING AND POINT ASSEMBLY Michael Motta MD LAB BLOOD ORDERABLES Final Result [facility] [address] [facility] Department [place] [address] * (ABNORMAL) Basic metabolic panel (05/31/2024 3:10 AM SUPERVISOR PLATING AND POINT ASSEMBLY) Sodium 138 135 - 145 mmol/L Potassium, pl 4.5 3.3 - 4.9 mmol/L [facility] Chloride 111(H) 97 - 110 mmol/L [facility] CO2 21(L) 22 - 32 mmol/L [facility] Anion gap 6 2 - 15 mmol/L [facility] BUN 13 6 - 25 mg/dL [facility] Creatinine 0.60 0.60 - 1.10 mg/dL [facility] Glucose 139 70 - 199 mg/dL [facility] Comment: Interpretive Data Fasting glucose >/= [...] 2022. Calcium 8.8 8.5 - 10.3 mg/dL [facility] Blood 05/31/2024 3:10 AM SUPERVISOR PLATING AND POINT ASSEMBLY 05/31/2024 3:28 AM SUPERVISOR PLATING AND POINT ASSEMBLY us Michael Motta MD LAB BLOOD ORDERABLES Final Result [facility] [address] [facility] Department [place] [address] * AL AN PROCEDURE PLACEHOLDER (05/30/2024 2:25 PM SUPERVISOR PLATING AND POINT ASSEMBLY) Karen Churchill MD - 05/30/2024 2:25 PM SUPERVISOR PLATING AND POINT ASSEMBLY Karen Olmstead MD 05/30/2024 2:25 PM Peripheral Block Patient location during procedure: pre-op holding End time: 05/30/2024 7:29 AM Reason for block: post-op pain management per surgeon request Ultrasound image in chart or stored: yes Block type: single shot Laterality: right Block type: IPACK Staff: Placed by: Anesthesiologist: Karne Olmstead MD Procedure prep: Preprocedure checklist: patient [...] Olmstead MD ANESTHESIA ORDERABLES Final Result * AL AN PROCEDURE PLACEHOLDER (05/30/2024 2:24 PM SUPERVISOR PLATING AND POINT ASSEMBLY) Karen Churchill MD - 05/30/2024 2:24 PM SUPERVISOR PLATING AND POINT ASSEMBLY Karen Olmstead MD 05/30/2024 2:24 PM Peripheral [...] Olmstead MD ANESTHESIA ORDERABLES Final Result * AL AN PROCEDURE PLACEHOLDER (05/30/2024 2:23 PM SUPERVISOR PLATING AND POINT ASSEMBLY) Narrative Karen Olmstead MD - 05/30/2024 2:23 PM SUPERVISOR PLATING AND POINT ASSEMBLY Karen Olmstead MD 05/30/2024 2:24 PM Peripheral [...] ANESTHESIA ORDERABLES Edited Result - Final * AL AN PROCEDURE PLACEHOLDER (05/30/2024 2:22 PM SUPERVISOR PLATING AND POINT ASSEMBLY) Narrative Karen Olmstead MD - 05/30/2024 2:22 PM SUPERVISOR PLATING AND POINT ASSEMBLY Karen Olmstead MD 05/30/2024 2:24 PM Peripheral [...] 1 or 2 View (05/30/2024 10:52 AM SUPERVISOR PLATING AND POINT ASSEMBLY) Anatomical Region Laterality Modality Lower Extremities, Knee Right Computed Radiography 05/30/2024 11:3 8 AM SUPERVISOR PLATING AND POINT ASSEMBLY Narrative 05/30/2024 11:40 AM SUPERVISOR PLATING AND POINT ASSEMBLY EXAM DESCRIPTION: XR KNEE RIGHT 1 OR [...] Anjum Chino M.D. LB T: Report ID: [id number] Reading Location: [id number] Procedure Note Anjum Chino MD - 05/30/2024 [...] Anjum Chino M.D. LB T: Report ID: [id number] Reading Location: [id number] Michael Motta MD IMG XR PROCEDURES Final Re sult * AL AN PROCEDURE PLACEHOLDER (05/30/2024 8:18 AM SUPERVISOR PLATING AND POINT ASSEMBLY) Narrative Urban Davison, BOOM - 05/30/2024 8:18 AM SUPERVISOR PLATING AND POINT ASSEMBLY Urban Davison, BOOM 05/30/2024 8:19 AM Peripheral [...] Olmstead MD ANESTHESIA ORDERABLES Final Result * AL AN ELECTIVE SUPRAGLOTTIC AIRWAY, AL AN PROCEDURE PLACEHOLDER (05/30/2024 8:17 AM SUPERVISOR PLATING AND POINT ASSEMBLY) Narrative Urban Davison CRNA - 05/30/2024 8:17 AM SUPERVISOR PLATING AND POINT ASSEMBLY Urban Davison CRNA 05/30/2024 8:18 AM Airway Patient location: OR Urgency: elective Indications for airway management: anesthesia Difficult airway: no Staff: Placed by: MOLD LOFT WORKER: Urban Davison, BOOM Emergent airway documentation: Risks [...] POCUS INJ SCIATIC NERVE (05/30/2024 7:13 AM SUPERVISOR PLATING AND POINT ASSEMBLY) Narrative [facility] - 05/30/2024 7:13 AM SUPERVISOR PLATING AND POINT ASSEMBLY This procedure was performed and interpreted by the provider. Please refer to the provider's procedure/OR operative note for results. Michael Motta MD POCUS ORDERABLES Final Res ult Performing Organization Address [facility] de Phone Number [facility] * POCUS INJ FEMORAL NERVE (05/30/2024 7:13 AM SUPERVISOR PLATING AND POINT ASSEMBLY) Narrative [facility] - 05/30/2024 7:13 AM SUPERVISOR PLATING AND POINT ASSEMBLY This procedure was performed and interpreted by [...] * Hepatitis C antibody (06/04/2020 10:29 AM SUPERVISOR PLATING AND POINT ASSEMBLY) Hep C Ab NON-REACTI VE NON-REACT ALEXYS [facility] SIGNAL TO CUT-OFF 0.02 <1.00 [facility] Comment: HCV antibody was non-reactive. There is no laboratory evidence of HCV infection. In most cases, no further action is required. However, if recent HCV exposure is suspected, a test for HCV RNA (test code 25349) is suggested. For additional information please refer to http://education.[employer]/faq/JXX28n9 (This link is being provided for informational/ educational purposes only.) Blood specimen (specimen) 06/04/2020 10:29 AM SUPERVISOR PLATING AND POINT ASSEMBLY 06/04/2020 10:30 AM SUPERVISOR PLATING AND POINT ASSEMBLY Sangita OSMAN LAB MICROBIOLOGY - GENERA L ORDERABLES Final Result [facility] [address] [address] [id number] from Last 3 Months or Most Recently Relevant to Health Maintenance Insurance [facility] Advance Directives For more information, please contact: [phone] Documents on File Type Date Recorded Patient Resident Intern Expl anation ADVANCE DIRECTIVE 05/17/2024 2:13 PM Yonis r of [employer] Manager-Medical * Full Code (Latest Code Status on File) Date Activated Date Inactivated Comments 05/30/2024 12:38 PM 06/05/2024 6:31 PM * Full Code Date Activated Date Inactivated Comments 05/04/2023 2:33 PM 05/07/2023 3:07 AM * Full Code Date Activated Date Inactivated Comments 03/22/2021 4:39 PM 03/25/2021 6:17 PM Care Teams Accounts Receivable Processor Relationship Specialty Start Date End Date Alee Elizondo PA [address] [facility] [address] [place] [address] PCP - General Internal Medicine 07/05/23 Sharan Linton MD Referring Physician Gastroenterology 10/31/18 Martha Starks MD Consulting Physician Cardiology 12/24/20 Shama Hines MD [address] [facility] [address] [place] [address] Consulting Physician Pain Management 01/19/21 Artis Grewal MD [address] [place] [address] Consulting Physician Rheumatology 01/30/21 Amy Mayes NP [address] [facility] [address] [facility] [address] [place] [address] Nurse Practitioner Cardiovascular Disease 04/20/24 Shailesh Dunn MD [address] [facility] [address] [place] [address] Consulting Physician Pulmonary Disease 04/20/24 Sangita Farrar PA [facility] [place] [address] Physician Kaiako Kura [place] Rheumatology 05/15/24
[2024-08-29 23:35] LABS: Add Urine Microscopic? YES; Appearance Urine Cloudy (Clear); Bacteria Urine Rare /hpf; Bilirubin Urine Negative (Negative); Blood Urine Negative (Negative); Color Urine Dark Yellow (Yellow); Glucose Urine UA Negative (Negative); Ketones Urine Trace mg/dL (Negative); Leukocyte Esterase Ur Trace LEU/UL (Negative); Need Manual Microscopic Reviewed; Nitrate Urine Negative (Negative); Protein Urine Trace mg/dL (Negative); RBC Urine 0-2 /hpf (0-2); Specific Grav Ur 1.026 (1.001-1.035); Squamous Epithelial Cell Urine Few /hpf (Few); WBC Urine 0-5 /hpf (0-3)
[2024-08-29] MEDS: SODIUM CHLORIDE 0.9% IV 1,000 ML 999 ML IV CONT (23:58)
[2024-08-29 23:59] VITALS: BP 116/59; PULSE 89; RESP 18; O2SAT 94
[2024-08-30] MEDS: ONDANSETRON INJ 4 MG/2 ML VIAL IV PUSH
[2024-08-30] MEDS: diphenhydrAMINE HCl INJ 50 MG/ML VIAL 25 MG IV PUSH (00:01)
[2024-08-30] MEDS: HYDROmorphone HCL INJ (*CRX) 2 MG/ML VIAL 0.5 MG IV PUSH ×2 (00:03→03:32)
[2024-08-30 00:31] VITALS: BP 128/81; PULSE 58; O2SAT 96
[2024-08-30 01:20] VITALS: BP 119/60; PULSE 86; RESP 18; O2SAT 94
--- NOTE | 2024-08-30 01:25 | PC.NURSE ---
Patient had significant improvement in pain after emergency medical services coordinator but states pain is increasing. Was at 2/10, now 8/10 again. NS infusion complete. Pt remains on monitor, VS as charted.
[2024-08-30 02:40] VITALS: BP 116/65; PULSE 86; RESP 18; O2SAT 94
[2024-08-30] MEDS: SODIUM CHLORIDE 0.9% IV 1,000 ML 999 ML IV CONT (03:04)
[2024-08-30 03:33] VITALS: BP 105/57; PULSE 82; RESP 14; TEMP 36.8; O2SAT 96
== END 2024-08-30 04:36 | disposition home or self-care (01) ==
PROVIDERS: Physician Assistant; Emergency Provider Physician Assistant; PCP Physician Assistant
DX: N30.90 Cystitis, unspecified without hematuria (principal); R33.9 Retention of urine, unspecified; R10.31 Right lower quadrant pain; R93.41 Abnormal radiologic findings on diagnostic imaging of renal pelvis, ureter, or bladder; I25.10 Atherosclerotic heart disease of native coronary artery without angina pectoris; I10 Essential (primary) hypertension; E78.5 Hyperlipidemia, unspecified; J45.40 Moderate persistent asthma, uncomplicated; K21.9 Gastro-esophageal reflux disease without esophagitis; M19.90 Unspecified osteoarthritis, unspecified site; G47.33 Obstructive sleep apnea (adult) (pediatric); F32.A Depression, unspecified; Z96.652 Presence of left artificial knee joint; Z87.442 Personal history of urinary calculi; Z90.49 Acquired absence of other specified parts of digestive tract; R16.0 Hepatomegaly, not elsewhere classified; E88.2 Lipomatosis, not elsewhere classified
CPT/HCPCS: 36415; 74177; 80053; 81001; 83690; 85025; 96361; 96374; 96375; 96376; 99284; J1171; J1200; J2405; J7030; Q9967

== ENCOUNTER 2024-10-02 10:00 | Outpatient (CLI) | payer MEDICARE, SELFPAY ==
--- NOTE | ~2024-10-02 | MM_ITS ---
EXAMINATION: MM screening [facility] BI w deshawn HISTORY: Screening TECHNIQUE: Craniocaudal and mediolateral oblique 3-D tomosynthesis images were obtained and synthetic 2-D images were generated. CAD analysis was submitted and interpreted. COMPARISON: Comparison to multiple prior studies sequentially, with oldest reviewed study dated 03/15. BREAST PARENCHYMAL COMPOSITION: Not dense: There are scattered areas of fibroglandular density. FINDINGS: Stable asymmetry with calcifications subareolar location of the right breast, likely corres ponding to prior biopsy site. There is no evidence of suspicious mass, calcification, or architectura l distortion to suggest malignancy in either breast. There has been no suspicious interval change. IMPRESSION: 1. No mammographic evidence of malignancy. 2. Recommend routine screening mammography in one year. BI-RADS Category 2: Benign finding(s). Reviewed, dictated and finalized at location A.
--- OUTSIDE RECORDS SUMMARY | 2024-10-02 10:56 | XMS_ITS | Encounter Summary ---
Author Organization [facility] Facility Care Team Providers Care Floor Steward/Stewardess Name Role Phone Alee Elizondo Primary Care Provider + [phone] Sharan Linton MD Unavailable [phone] Taisha Gomez MD Unavailable [phone] Parag Soto MD Unavailable [phone] RaziaMartha singh MD Unavailable [phone] Puneet Uribe MD Unavailable [phone] Shama Hines MD Unavailable Artis Grewal MD Unavailable [phone] Harrison Pena RN Unavailable +[phone] Nafisa Gregg RN Unavailable [phone] Tho Kelsey MD Primary Care Provider [phone] Alee Elizondo Primary Care Provider + [phone] Amy Mayes NP Unavailable [phone] Shailesh Dunn MD Unavailable [phone] Sangita Farrar Unavailable [phone] Encounter Details Date Type Department Care Team (Latest Contact Info) Description 06/28/2016 Orders Only [facility] CLINCONV Provider, MD Tania [address] [place] [address] Social History Tobacco Use Types Packs/Day Years Used Date Smoking Tobacco: Never Alcohol Use Standard Drinks/Week Comments No 0 (1 standard drink = 0.6 oz pur e alcohol) Comments Unknown Sex and Gender Information Value Date Recorded Sex Assigned at Not on file Legal Sex Female 8:04 PM GAS OR PETROLEUM OPERATOR Gender Identity Female 02/15/2020 6:08 PM CDT Sexual Orientation Not on file documented as of this encounter Plan of Treatment Not on file documented as of this encounter Procedures Procedure Name Priority Date/Time Associated Diagnosis Comments SCAN - LABS 06/29/2016 12:00 AM GAS OR PETROLEUM OPERATOR documented in this encounter Results * SCAN - LABS (06/29/2016 12:00 AM GAS OR PETROLEUM OPERATOR) Narrative 06/29/2016 12:00 AM GAS OR PETROLEUM OPERATOR Ordered by an unspecified provider. us Historical Provider MD Final Res ult documented in this encounter Visit Diagnoses Not on filedocumented in this encounter Additional Health Concerns Infection Onset Date Last Indicated Resolved Time COVID: Suspected 08/13/2021 08/14/2021 08/14/2021 3:06 AM GAS OR PETROLEUM OPERATOR COVID: Suspected 08/14/2021 08/14/2021 08/15/2021 3:05 AM GAS OR PETROLEUM OPERATOR COVID: Suspected 08/14/2021 08/14/2021 08/15/2021 6:25 AM GAS OR PETROLEUM OPERATOR COVID: Suspected 06/02/2023 06/02/2023 06/02/2023 7:25 PM GAS OR PETROLEUM OPERATOR COVID: Suspected 07/26/2023 07/26/2023 07/26/2023 3:10 PM GAS OR PETROLEUM OPERATOR COVID: Suspected 09/25/2024 09/25/2024 09/25/2024 11:03 AM CDT Influenza, adult 09/25/2024 09/25/2024 10/02/2024 3:05 AM CDT documented as of this encounter Care Teams Floor Steward/Stewardess Relationship Specialty Start Date End Date Alee Elizondo PA [address] [facility] 500 [place] [address] PCP - General Internal Medicine 02/01/17 06/29/23 Tho Kelsey MD [address] [facility] [address] [facility] 400 [place] [address] PCP - General Family Medicine 06/30/23 07/04/23 Alee Elizondo PA [address] [place] [place] [address] PCP - General Internal Medicine 07/05/23 Sharan Linton MD [address] [place] [place] [address] Referring Physician Gastroenterology 10/31/18 Taisha Gomez MD [address] [place] [place] [address] Referring Physician Pulmonary Disease 10/31/18 12/23/20 Parag Soto MD [address] [place] [place] [address] Referring Physician Rheumatology 10/31/18 12/23/20 Martha Starks MD [address] [place] [place] [address] Consulting Physician Cardiology 12/24/20 Puneet Uribe MD [address] [facility] [address] [place] [address] Consulting Physician Rheumatology 12/24/20 01/29/21 Shama Hines MD [address] [facility] 230 [place] [address] Consulting Physician Pain Management 01/19/21 Artis Grewal MD [address] [place] [address] Consulting Physician Rheumatology 01/30/21 Harrison Pena, JULIUS [address] [place] [address] Engagement Liaison 05/30/23 09/04/23 Nafisa Gregg, JULIUS [address] [place] [address] [address] [place] [address] Engagement Liaison 06/06/23 06/12/23 Amy Mayes NP [address] [facility] [address] [address] Nurse Practitioner Cardiovascular Disease 04/20/24 Shailesh Dunn MD [address] [facility] 200 [place] [address] Consulting Physician Pulmonary Disease 04/20/24 Sangita Farrar PA [address] [place] [address] Physician Solar Hot Water Installer Rheumatology 05/15/24 documented as of this encounter
--- OUTSIDE RECORDS SUMMARY | 2024-10-02 10:56 | XMS_ITS | Encounter Summary ---
Author Organization [facility] Healthcare Address [address] [place] [address] Care Team Providers Care Cooker Tender Name Role Phone Sharan Linton MD Unavailable [phone] Martha Starks MD Unavailable [phone] Shama Hines MD Unavailable Artis Grewal MD Unavailable [phone] Alee Elizondo Primary Care Provider [phone] Amy Mayes NP Unavailable [phone] Shailesh Dunn MD Unavailable [phone] Sangita Farrar Unavailable [phone] Encounter Details Date Type Department Care Team (Late st Contact Info) Description 09/04/2024 Results Follow-Up [facility] Medical Group Family Medicine [address] [place] [address] Alee Elizondo PA [address] [facility] [address] [facility] [address] [place] [address] Social History Tobacco Use Types Packs/Day Years Used Date Smoking Tobacco: Never Smokeless Tobacco: Never Comments:Never used Alcohol Use Standard Drinks/Week Comments No 0 (1 standard drink = 0.6 oz pur e alcohol) [facility] Utilities Answer Date Recorded In the past 12 months has [employer], oil, or water [employer] threatened to shut off services in your [...] any clubs o r organizations such as mandaeism groups, unions, fraternal or athletic groups, or school groups? No 05/30/2024 How often do you attend meet ings of the clubs or organizations you belong to? Never 05/30/2024 Are you , , di vorced, , never , or living with a partner? Never 05/30/2024 AUDIT-C Answer Date Recorded Frequency of Alcohol Consumption Not on file 05/17/2024 Q2: How many drinks containi ng alcohol do you have on a typical day when you are drinking? Patient does not drink Frequency of Binge Drinking Not on file 05/04 Overall Financial Resource Strain (CARDIA) Answe r [...] place to sleep or slept in a residential (including now)? No 05/27/2023 PHQ-9 Answer Date Recorded PHQ-9 Total Score 4 09/06/2023 Housing Stability Vital Sign Answer Jarrett e Recorded In the last 12 months, was t here a time when you were not able to pay the mortgage or rent on time? No 05/30/2024 In the past 12 months, how m any times have you moved where you were living? 0 05/30/2024 At any time in the past 12 m [facility], were you homeless or living in a residential (including now)? No 05/30/2024 Personal Safety Answer Date Recorded Have you ever been in or are you currently in a harmful physical or emotional relationship or is someone making you feel afraid or unsafe? Denies 05/30/2024 Comments No Sex and Gender Information Value Date Recorded Sex Assigned at Not on file Legal Sex Female 8:04 PM CARPET MECHANIC Gender Identity Female 02/15/2020 6:08 PM CDT Sexual Orientation Not on file documented as of this encounter Plan of Treatment Not on file documented as of this encounter Visit Diagnoses Not on filedocumented in this encounter Additional Health Concerns Infection Onset Date Last Indicated Resolved Time COVID: Suspected 09/25/2024 09/25/2024 09/25/2024 11:03 AM CDT Influenza, adult 09/25/2024 09/25/2024 10/02/2024 3:05 AM CDT documented as of this encounter Care Teams Cooker Tender Relationship Specialty [place] [address] [place] [address] PCP - General Internal Medicine 07/05/23 Sharan Linton MD Referring Physician Gastroenterology 10/31/18 Martha Starks MD Consulting Physician Cardiology 12/24/20 Shama Hines MD [address] [facility], [address] [address] Consulting Physician Pain Management 01/19/21 Artis Grewal MD [address] [place] [address] Consulting Physician Rheumatology 01/30/21 Amy Mayes NP [address] [address] Nurse Practitioner Cardiovascular Disease 04/20/24 Shailesh Dunn MD [address] [address] Consulting Physician Pulmonary Disease 04/20/24 Sangita Farrar PA [address] [place] [address] Physician Project Surveyor Rheumatology 05/15/24 documented as of this encounter
--- OUTSIDE RECORDS SUMMARY | 2024-10-02 10:56 | XMS_ITS | Encounter Summary ---
Author Organization [facility] Facility Care Team Providers Care Labor And Delivery Registered Nurse Name Role Phone Alee Elizondo Primary Care Provider + [phone] Sharan Linton MD Unavailable [phone] Taisha Gomez MD Unavailable [phone] Parag Soto MD Unavailable [phone] RaziaMartha singh MD Unavailable [phone] Puneet Uribe MD Unavailable [phone] Shama Hines MD Unavailable Artis Grewal MD Unavailable [phone] Harrison Pena RN Unavailable [phone] Nafisa Gregg RN Unavailable [phone] Tho Kelsey MD Primary Care Provider [phone] Alee Elizondo Primary Care Provider + [phone] Amy Mayes NP Unavailable [phone] Shailesh Dunn MD Unavailable [phone] Sangita Farrar Unavailable [phone] Encounter Details Date Type Department Care Team (Latest Contact Info) Description 11/04/2015 Orders Only [facility] CLINCONV Provider, MD Tania [address] [place] [address] Social History Tobacco Use Types Packs/Day Years Used Date Smoking Tobacco: Never Assessed Comments Unknown Sex and Gender Information Value Date Recorded Sex Assigned at Not on file Legal Sex Female 8:04 PM FEDERAL AGENT Gender Identity Female 02/15/2020 6:08 PM CDT [...] COVID: Suspected 08/13/2021 08/14/2021 08/14/2021 3:06 AM FEDERAL AGENT COVID: Suspected 08/14/2021 08/14/2021 08/15/2021 3:05 AM FEDERAL AGENT COVID: Suspected 08/14/2021 08/14/2021 08/15/2021 6:25 AM FEDERAL AGENT COVID: Suspected 06/02/2023 06/02/2023 06/02/2023 7:25 PM FEDERAL AGENT COVID: Suspected 07/26/2023 07/26/2023 07/26/2023 3:10 PM FEDERAL AGENT COVID: Suspected 09/25/2024 09/25/2024 09/25/2024 11:03 AM CDT Influenza, adult 09/25/2024 09/25/2024 10/02/2024 3:05 AM CDT documented as of this encounter Care Teams Labor And Delivery Registered Nurse Relationship Specialty Start Date End Date Alee Elizondo PA [address] [facility] 500 [place] [address] PCP - General Internal Medicine 02/01/17 06/29/23 Tho Kelsey MD [address] [facility] [address] [place] [address] PCP - General Family Medicine 06/30/23 07/04/23 Alee Elizondo PA [address] [place] [address] [place] [address] PCP - General Internal Medicine 07/05/23 Sharan Linton MD [address] [place] [place] [address] Referring Physician Gastroenterology 10/31/18 Taisha Gomez MD [address] [place] [address] [place] [address] Referring Physician Pulmonary Disease 10/31/18 12/23/20 Parag Soot MD [address] [place] [address] [place] [address] Referring Physician Rheumatology 10/31/18 12/23/20 Martha Starks MD [address] [place] [address] [place] [address] Consulting Physician Cardiology 12/24/20 Puneet Uribe MD [address] [facility] [address] [place] [address] Consulting Physician Rheumatology 12/24/20 01/29/21 Shama Hines MD [address] [facility], [facility] [address] [place] [address] Consulting Physician Pain Management 01/19/21 Artis Grewal MD [address] [place] [address] Consulting Physician Rheumatology 01/30/21 Harrison Pena, JULIUS [address] [place] [address] [employer] Customer Service 05/30/23 09/04/23 Nafisa Gregg, JULIUS [address] [place] [address] [facility] [address] [place] [address] [employer] Customer Service 06/06/23 06/12/23 Amy Mayes NP [address] [address] Nurse Practitioner Cardiovascular Disease 04/20/24 Shailesh Dunn MD [address] [facility] [address] [address] Consulting Physician Pulmonary Disease 04/20/24 Sangita Farrar PA [address] [place] [address] Physician Oxygen System Tester Rheumatology 05/15/24 documented as of this encounter
--- OUTSIDE RECORDS SUMMARY | 2024-10-02 10:56 | XMS_ITS | Encounter Summary ---
Author Organization [facility] Facility Care Team Providers Care Atomic Physics Professor Name Role Phone Alee Elizondo Primary Care Provider + [phone] Sharan Linton MD Unavailable [phone] Taisha Gomez MD Unavailable +[phone] Parag Soto MD Unavailable [phone] Martha Starks MD Unavailable [phone] Puneet Uribe MD Unavailable +[phone] Shama Hines MD Unavailable Artis Grewal MD Unavailable [phone] Harrison Pena RN Unavailable +[phone] Nafisa Gregg RN Unavailable +[phone] Tho Kelsey MD Primary Care Provider [phone] Alee Elizondo Primary Care Provider + [phone] Amy Mayes NP Unavailable +[phone] Shailesh Dunn MD Unavailable [phone] Sangita Farrar Unavailable +[phone] Encounter Details Date Type Department Care Team (Latest Contact Info) Description 01/08/2017 Orders Only [facility] CLINCONV Provider, MD Tania [address] [place] [address] Social History Tobacco Use Types Packs/Day Years Used Date Smoking Tobacco: Never Alcohol Use Standard Drinks/Week Comments No 0 (1 standard drink = 0.6 oz pur e alcohol) Comments Unknown Sex and Gender Information Value Date Recorded Sex Assigned at Not on file Legal Sex Female 8:04 PM HEARING THERAPIST Gender Identity Female 02/15/2020 6:08 PM CDT [...] COVID: Suspected 08/13/2021 08/14/2021 08/14/2021 3:06 AM HEARING THERAPIST COVID: Suspected 08/14/2021 08/14/2021 08/15/2021 3:05 AM HEARING THERAPIST COVID: Suspected 08/14/2021 08/14/2021 08/15/2021 6:25 AM HEARING THERAPIST COVID: Suspected 06/02/2023 06/02/2023 06/02/2023 7:25 PM HEARING THERAPIST COVID: Suspected 07/26/2023 07/26/2023 07/26/2023 3:10 PM HEARING THERAPIST COVID: Suspected 09/25/2024 09/25/2024 09/25/2024 11:03 AM CDT Influenza, adult 09/25/2024 09/25/2024 10/02/2024 3:05 AM CDT documented as of this encounter Care Teams Atomic Physics Professor Relationship Specialty Start Date End Date Alee Elizondo PA [address] [facility] 500 [place] [address] PCP - General Internal Medicine 02/01/17 06/29/23 Tho Kelsey MD [address] [facility] [address] [facility] 400 [place] [address] PCP - General Family Medicine 06/30/23 07/04/23 Alee Elizondo PA [address] [place] [address] [place] [address] PCP - General Internal Medicine 07/05/23 Sharan Linton MD [address] [place] [address] [place] [address] Referring Physician Gastroenterology 10/31/18 Taisha Gomez MD [address] [facility] [address] [place] [address] [place] [address] Referring Physician Pulmonary Disease 10/31/18 12/23/20 Parag Soto MD [address] [place] [address] [place] [address] Referring Physician Rheumatology 10/31/18 12/23/20 Martha Starks MD [address] [place] [address] [place] [address] Consulting Physician Cardiology 12/24/20 Puneet Uribe MD [address] [facility] 110 [place] [address] Consulting Physician Rheumatology 12/24/20 01/29/21 Shama Hines MD 4700 [facility], [facility] [address] [place] [address] Consulting Physician Pain Management 01/19/21 Artis Grewal MD [address] [place] [address] Consulting Physician Rheumatology 01/30/21 Harrison Pena, JULIUS [address] [place] [address] Windows Software Engineer 05/30/23 09/04/23 Nafisa Gregg, JULIUS [address] [place] [address] [facility] 300 [place] [address] Windows Software Engineer 06/06/23 06/12/23 Amy Mayes NP [address] [facility] 102 [place] [address] Nurse Practitioner Cardiovascular Disease 04/20/24 Shailesh Dunn MD 4600 [facility] 200 [place] [address] Consulting Physician Pulmonary Disease 04/20/24 Sangita Farrar PA [address] [place] [address] Physician Weed Burner Rheumatology 05/15/24 documented as of this encounter
--- OUTSIDE RECORDS SUMMARY | 2024-10-02 10:56 | XMS_ITS | Encounter Summary ---
Author Organization [facility] Facility Care Team Providers Care Physician Industrial Name Role Phone Alee Elizondo Primary Care Provider + [phone] Sharan Linton MD Unavailable [phone] Taisha Gomez MD Unavailable [phone] Parag Soto MD Unavailable [phone] RaziaMartha singh MD Unavailable [phone] Puneet Uribe MD Unavailable [phone] Shama Hines MD Unavailable Artis Grewal MD Unavailable [phone] Harrison Pena RN Unavailable +[phone] Nafisa Gregg RN Unavailable Tho Kelsey MD Primary Care Provider [phone] Alee Elizondo Primary Care Provider + [phone] Amy Mayes NP Unavailable [phone] Shailesh Dunn MD Unavailable [phone] Sangita Farrar Unavailable +[phone] Encounter Details Date Type Department Care Team (Latest Contact Info) Description 04/19/2016 Orders Only [facility] CLINCONV Provider, MD Tania [address] [place] [address] Social History Tobacco Use Types Packs/Day Years Used Date Smoking Tobacco: Never Alcohol Use Standard Drinks/Week Comments No 0 (1 standard drink = 0.6 oz pur e alcohol) Comments Unknown Sex and Gender Information Value Date Recorded Sex Assigned at Not on file Legal Sex Female 8:04 PM FINISH INSPECTOR Gender Identity Female 02/15/2020 6:08 PM CDT [...] COVID: Suspected 08/13/2021 08/14/2021 08/14/2021 3:06 AM FINISH INSPECTOR COVID: Suspected 08/14/2021 08/14/2021 08/15/2021 3:05 AM FINISH INSPECTOR COVID: Suspected 08/14/2021 08/14/2021 08/15/2021 6:25 AM FINISH INSPECTOR COVID: Suspected 06/02/2023 06/02/2023 06/02/2023 7:25 PM FINISH INSPECTOR COVID: Suspected 07/26/2023 07/26/2023 07/26/2023 3:10 PM FINISH INSPECTOR COVID: Suspected 09/25/2024 09/25/2024 09/25/2024 11:03 AM CDT Influenza, adult 09/25/2024 09/25/2024 10/02/2024 3:05 AM CDT documented as of this encounter Care Teams Physician Industrial Relationship Specialty Start Date End Date Alee Elizondo PA 10[address] [facility] 500 [place] [address] PCP - General Internal Medicine 02/01/17 06/29/23 Tho Kelsey MD [address] [facility] [address] [facility] 400 [place] [address] PCP - General Family Medicine 06/30/23 07/04/23 Alee Elizondo PA [address] [place] [address] [place] [address] PCP - General Internal Medicine 07/05/23 Sharan Linton MD [address] [place] [address] [place] [address] Referring Physician Gastroenterology 10/31/18 Taisha Gomez MD [address] [facility] [address] [place] [address] [place] [address] Referring Physician Pulmonary Disease 10/31/18 12/23/20 Parag Soto MD [address] [place] [address] [place] [address] Referring Physician Rheumatology 10/31/18 12/23/20 Martha Starks MD [address] [place] [address] [place] [address] Consulting Physician Cardiology 12/24/20 Puneet Uribe MD [address] [facility] 110 [place] [address] Consulting Physician Rheumatology 12/24/20 01/29/21 Shama Hines MD 4700 [facility], [facility] 230 [place] [address] Consulting Physician Pain Management 01/19/21 Artis Grewal MD [address] [place] [address] Consulting Physician Rheumatology 01/30/21 Harrison Pena, JULIUS [address] [place] [address] Plastic Cablemaking 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 05/30/23 09/04/23 Nafisa Gregg, JULIUS [address] [place] [address] [facility] 300 [place] [address] Plastic Cablemaking 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 06/06/23 06/12/23 Amy Mayes NP [address] [facility] 102 [place] [address] Nurse Practitioner Cardiovascular Disease 04/20/24 Shailesh Dunn MD 4600 [facility] 200 [place] [address] Consulting Physician Pulmonary Disease 04/20/24 Sangita Farrar PA [address] [place] [address] Physician Chair Spring Assembler Rheumatology 05/15/24 documented as of this encounter
--- OUTSIDE RECORDS SUMMARY | 2024-10-02 10:56 | XMS_ITS | Clinical Summary ---
Author Organization [facility] Address [address] [place] [address] Care Team Providers Care Auto Service Station Attendant Name Role Phone Unavailable Primary Care Provider [...]
--- OUTSIDE RECORDS SUMMARY | 2024-10-02 10:56 | XMS_ITS | Encounter Summary ---
Author Organization [facility] Healthcare Address [address] [place] [address] Care Team Providers Care Tilt Tray Driver Name Role Phone Sharan Linton MD Unavailable [phone] Martha Starks MD Unavailable [phone] Shama Hines MD Unavailable Artis Grewal MD Unavailable [phone] Alee Elizondo Primary Care Provider [phone] Amy Mayes NP Unavailable [phone] Shailesh Dunn MD Unavailable [phone] Sangita Farrar Unavailable +[phone] Encounter Details Date Type Department Care Team (Late st Contact Info) Description 12/08/2023 Orders Only [facility] Information Management [address] [place] [address] Scanning, Provider Social History Tobacco Use Types Packs/Day Years Used Date Smoking Tobacco: Never Smokeless Tobacco: Never Comments:Never used Alcohol Use Standard Drinks/Week Comments No 0 (1 standard drink = 0.6 oz pur e alcohol) [facility] Utilities Answer Date Recorded In the [...] any clubs o r organizations such as orthodoxy groups, unions, fraternal or athletic groups, or [...] a senior living (including now)? No 05/27/2023 PHQ-9 Answer Date Recorded PHQ-9 Total Score 4 09/06/2023 Personal Safety Answer Date Recorded Have you ever been in or are you currently in a harmful physical or emotional relationship or is someone making you feel afraid or unsafe? Denies 06/02/2023 Comments No Sex and Gender Information Value Date Recorded Sex Assigned at Not on file Legal Sex Female 8:04 PM WATER VALVE MECHANIC Gender Identity Female 02/15/2020 6:08 PM [...] documented as of this encounter Care Teams Tilt Tray Driver Relationship Specialty Start Date End Date Alee Elizondo PA [address] [address] PCP - General Internal Medicine 07/05/23 Sharan Linton MD Referring Physician Gastroenterology 10/31/18 Martha Starks MD Consulting Physician Cardiology 12/24/20 Shama Hines MD 4700 [facility], [address] [address] Consulting Physician Pain Management 01/19/21 Artis Grewal MD [address] [place] [address] Consulting Physician Rheumatology 01/30/21 Amy Maeys NP [address] [address] Nurse Practitioner Cardiovascular Disease 04/20/24 Shailesh Dunn MD [address] [address] Consulting Physician Pulmonary Disease 04/20/24 Sangita Farrar PA [address] [place] [address] Physician Imaging Specialist Rheumatology 05/15/24 documented as of this encounter
--- OUTSIDE RECORDS SUMMARY | 2024-10-02 10:56 | XMS_ITS | Encounter Summary ---
Author Organization [facility] Healthcare Address [address] [place] [address] Care Team Providers Care House Moving Supervisor Name Role Phone Sharan Linton MD Unavailable [phone] Martha Starks MD Unavailable [phone] Shama Hines MD Unavailable Artis Grewal MD Unavailable [phone] Alee Elizondo Primary Care Provider [phone] Amy Mayes NP Unavailable [phone] Shailesh Dunn MD Unavailable [phone] Sangita Farrar Unavailable [phone] Reason for Visit * Reason Onset Date Comments Medical Question/Miscellaneous 08/31/2024 Encounter Details Date Type Department Care Team (Late st Contact Info) Description 08/31/2024 Telephone [facility] Family Medicine [address] [place] [address] Alee Elizondo PA [address] [facility] [address] [place] [address] [place] [address] Medical Question/Miscellaneous Social History Tobacco Use Types Packs/Day Years Used Date Smoking Tobacco: Never Smokeless Tobacco: Never Comments:Never used Alcohol Use Standard Drinks/Week Comments No 0 (1 standard drink = 0.6 oz pur e alcohol) [facility] Utilities Answer Date Recorded In [...] often do you attend chur ch or evangelical services? 1 to 4 times per year 05/30/2024 Do you belong to any clubs o r organizations such as christianity groups, unions, fraternal or athletic groups, or [...] place to sleep or slept in a half-way (including now)? No 05/27/2023 PHQ-9 Answer Date [...] were you homeless or living in a half-way (including now)? No 05/30/2024 Personal Safety Answer Date Recorded Have you ever been in or are you currently in a harmful physical or emotional relationship or is someone making you feel afraid or unsafe? Denies 05/30/2024 Comments No Sex and Gender Information Value Date Recorded Sex Assigned at Not on file Legal Sex Female 8:04 PM CAMPUS INTERVIEWS INTERN Gender Identity Female 02/15/2020 6:08 PM CDT Sexual Orientation Not on file documented as of this encounter Miscellaneous Notes * Telephone Encounter - Yovana Camacho LPN - 09/03/2024 10:36 AM CAMPUS INTERVIEWS INTERN [employer] Medicare insurance does not require referrals. Sent a [employer] message to pt to inform her of this. [place] INTERVIEWS INTERN * Telephone Encounter - Mariya Cassidy - 08/31/2024 1:51 PM CST Medical Question/Miscellaneous Caller???s Concern: Patient just updated their insurance to [facility] Medicare from [employer]. They have a referral already in place for Dr. Katsikas that was placed today. They will need to be updated to [facility] Medicare and faxed to Dr Thao. Fax #: [phone] Does message need to be routed? Yes-Action Needed US INTERVIEWS INTERN documented in this encounter Plan of Treatment Not on file documented as of this encounter Visit Diagnoses Not on filedocumented in this encounter Additional Health Concerns Infection Onset Date Last Indicated Resolved Time COVID: Suspected 09/25/2024 09/25/2024 09/25/2024 11:03 AM CDT Influenza, adult 09/25/2024 09/25/2024 10/02/2024 3:05 AM CDT documented as of this encounter Care Teams House Moving Supervisor Relationship Specialty Start Date End Date Alee Elizondo PA [address] [facility] [address] [place] [address] PCP - General Internal Medicine 07/05/23 Sharan Linton MD Referring Physician Gastroenterology 10/31/18 Martha Starks MD Consulting Physician Cardiology 12/24/20 Shama Hines MD 4700 [facility], [facility] [address] [place] [address] Consulting Physician Pain Management 01/19/21 Artis Grewal MD [address] [place] [address] Consulting Physician Rheumatology 01/30/21 Amy Mayes NP [address] [facility] 102 [place] [address] Nurse Practitioner Cardiovascular Disease 04/20/24 Shailesh Dunn MD 4600 [facility] [address] [address] Consulting Physician Pulmonary Disease 04/20/24 Sangita Farrar PA [address] [place] [address] Physician Building Code Administrator Rheumatology 05/15/24 documented as of this encounter
--- OUTSIDE RECORDS SUMMARY | 2024-10-02 10:56 | XMS_ITS | Clinical Summary ---
Author Organization [facility] Address [address] [place] [address] Care Team Providers Care Cement Boat And Barge Loader Name Role Phone Darvin Harden MD Primary Care Provider [phone] Source Comments [facility],non-owned Affiliates and Associated Physician Practices is amultiple site organization consisting of ambulatory clinics and hospital sitesin [place], [place], [place] and [place]. This disclosure is being madepursuant to the Care Everywhere program and may not contain all information available regarding this patient. Last updated 18.[facility] Allergies Active Allergy Reactions Criticality Noted Date [...] fluticasone propionate (Flonase) 50 MCG/ACT nasal spray Kane 2 (two) sprays into the nose once [...] FLEX SIG - COLON CA SCREENING 1955 MEDICARE AWV 12 MONTHS 1955 HEPATITIS C SCREENING 06/03/1973 DTAP/TDAP/TD VACCINES (1 - Tdap) 1974 PNEUMOCOCCAL VACCINE 50+ (1 of 1 - PCV) 2005 ZOSTER VACCINE (1 of 2) 2005 MAMMOGRAM 05/29/2023 05/29/2021, 04/25/2020 COVID-19 VACCINE (5 - 2023- season) 2024 04/14/2023, 08/17/2022, 03/30/2022, Additional history exists INFLUENZA VACCINE (#1) 2024 , 03/30/2022, 04/10/2020, Additional history exists DEPRESSION SCREENING 07/04/2024 Respiratory Syncytial Virus (RSV) Vaccine Pt: or [...] complete this topic MENINGOCOCCAL (Group B) VACCINE SHARED DECISION-MAKING Aged Out No longer eligible based on patient's age to complete this topic MENINGOCOCCAL GROUPS A/C/Y/W VACCINE Aged Out No longer eligible based on patient's age to complete this topic Care Teams Cement Boat And Barge Loader Relationship Specialty Start Date End Date Darvin Harden MD [address] [place] [address] PCP - General 07/11/19
--- OUTSIDE RECORDS SUMMARY | 2024-10-02 10:56 | XMS_ITS | Encounter Summary ---
Author Organization [facility] Facility Care Team Providers Care Manager Compliance Name Role Phone Alee Elizondo Primary Care Provider + [phone] Sharan Linton MD Unavailable [phone] Taisha Gomez MD Unavailable [phone] Parag Soto MD Unavailable [facility] MD Unavailable [phone] Puneet Uribe MD Unavailable +[phone] Shama Hines MD Unavailable Artis Grewal MD Unavailable [phone] Harrison Pena RN Unavailable +[phone] Nafisa Gregg RN Unavailable [phone] Tho Kelsey MD Primary Care Provider [phone] Alee Elizondo Primary Care Provider + [phone] Amy Mayes NP Unavailable [phone] Shailesh Dunn MD Unavailable [phone] Sangita Farrar Unavailable [phone] Encounter Details Date Type Department Care Team (Latest Contact Info) Description 09/14/2016 Orders Only [facility] CLINCONV Provider, MD Tania [address] [place] [address] Social History Tobacco Use Types Packs/Day Years Used Date Smoking Tobacco: Never Alcohol Use Standard Drinks/Week Comments No 0 (1 standard drink = 0.6 oz pur e alcohol) Comments Unknown Sex and Gender Information Value Date Recorded Sex Assigned at Not on file Legal Sex Female 8:04 PM GLOVE FACTORY SEWER Gender Identity Female 02/15/2020 6:08 PM CDT Sexual Orientation Not on file documented as of this encounter Plan of Treatment Not on file documented as of this encounter Procedures Procedure Name Priority Date/Time Associated Diagnosis Comments PROCEDURE - RESULT 09/09/2016 12 :00 AM GLOVE FACTORY SEWER documented in this encounter Results * PROCEDURE - RESULT (09/09/2016 12:00 AM GLOVE FACTORY SEWER) Narrative 09/09/2016 12:00 AM GLOVE FACTORY SEWER Ordered by an unspecified provider. Historical Provider MD Final Res ult documented in this encounter Visit Diagnoses Not on filedocumented in this encounter Additional Health Concerns Infection Onset Date Last Indicated Resolved Time COVID: Suspected 08/13/2021 08/14/2021 08/14/2021 3:06 AM GLOVE FACTORY SEWER COVID: Suspected 08/14/2021 08/14/2021 08/15/2021 3:05 AM GLOVE FACTORY SEWER COVID: Suspected 08/14/2021 08/14/2021 08/15/2021 6:25 AM GLOVE FACTORY SEWER COVID: Suspected 06/02/2023 06/02/2023 06/02/2023 7:25 PM GLOVE FACTORY SEWER COVID: Suspected 07/26/2023 07/26/2023 07/26/2023 3:10 PM GLOVE FACTORY SEWER COVID: Suspected 09/25/2024 09/25/2024 09/25/2024 11:03 AM CDT Influenza, adult 09/25/2024 09/25/2024 10/02/2024 3:05 AM CDT documented as of this encounter Care Teams Manager Compliance Relationship Specialty Start Date End Date Alee Elizondo PA 10[address] [facility] 500 [place] [address] PCP - General Internal Medicine 02/01/17 06/29/23 Tho Kelsey MD [address] [facility] [address] [email or web address] [address] [place] [address] PCP - General Family Medicine 06/30/23 07/04/23 Alee Elizondo PA [address] [place] [address] [place] [address] PCP - General Internal Medicine 07/05/23 Sharan Linton MD [address] [place] [address] [place] [address] Referring Physician Gastroenterology 10/31/18 Taisha Gomez MD [address] [place] [address] [place] [address] Referring Physician Pulmonary Disease 10/31/18 12/23/20 Parag Soto MD [address] [place] [address] [place] [address] Referring Physician Rheumatology 10/31/18 12/23/20 Martha Starks MD [address] [place] [address] [place] [address] Consulting Physician Cardiology 12/24/20 Puneet Uribe MD [address] [facility] 110 [place] [address] Consulting Physician Rheumatology 12/24/20 01/29/21 Shama Hines MD [address] [facility], [facility] [[email or web address] [address] [place] [address] Consulting Physician Pain Management 01/19/21 Artis Grewal MD [address] [place] [address] Consulting Physician Rheumatology 01/30/21 Harrison Pena, JULIUS [address] [place] [address] Sr. Social Media & Mobile Manager 05/30/23 09/04/23 Nafisa Gregg, JULIUS [address] [place] [address] [address] [place] [address] Sr. Social Media & Mobile Manager 06/06/23 06/12/23 Amy Mayes NP [address] [facility] [address] [address] Nurse Practitioner Cardiovascular Disease 04/20/24 Shailesh Dunn MD [address] [facility] 200 [place] [address] Consulting Physician Pulmonary Disease 04/20/24 Sangita Farrar PA [address] [place] [address] Physician Chauffeur Rheumatology 05/15/24 documented as of this encounter
--- OUTSIDE RECORDS SUMMARY | 2024-10-02 10:56 | XMS_ITS | Encounter Summary ---
Author Organization [facility] Facility Care Team Providers Care Can Maker Name Role Phone Alee Elizondo Primary Care Provider + [phone] Sharan Linton MD Unavailable [phone] Taisha Gomez MD Unavailable [phone] Parag Soto MD Unavailable [phone] RaziaMartha singh MD Unavailable [phone] Puneet Uribe MD Unavailable [phone] Shama Hines MD Unavailable Artis Grewal MD Unavailable [phone] Harrison Pena RN Unavailable [phone] Nafisa Gregg RN Unavailable [phone] Tho Kelsey MD Primary Care Provider [phone] Alee Elizondo Primary Care Provider + [phone] Amy Mayes NP Unavailable [phone] Shailesh Dunn MD Unavailable [phone] Sangita Farrar Unavailable [phone] Encounter Details Date Type Department Care Team (Latest Contact Info) Description 08/10/2017 Orders Only [facility]INCON[facility] Provider, MD Tania [address] [place] [id number] Social History Tobacco Use Types Packs/Day Years Used Date Smoking Tobacco: Never Smokeless Tobacco: Never Alcohol Use Standard Drinks/Week Comments No 0 (1 standard drink = 0.6 oz pur e alcohol) Comments Unknown Sex and Gender Information Value Date Recorded Sex Assigned at Not on file Legal Sex Female 8:04 PM MACHINE TENDER Gender Identity Female 02/15/2020 6:08 PM CDT Sexual Orientation Not on file documented as of this encounter Plan of Treatment Not on file documented as of this encounter Procedures Procedure Name Priority Date/Time Associated Diagnosis Comments CARDIOLOGY REPORT 08/10/2017 12: 00 AM MACHINE TENDER documented in this encounter Results * CARDIOLOGY REPORT (08/10/2017 12:00 AM MACHINE TENDER) Anatomical Region Laterality Modality Other Narrative 08/10/2017 12:00 AM MACHINE TENDER Ordered by an unspecified provider. us Historical Provider [facility] LEANDRA LANDRUM Final Result documented in this encounter Visit Diagnoses Not on filedocumented in this encounter Additional Health Concerns Infection Onset Date Last Indicated Resolved Time COVID: Suspected 08/13/2021 08/14/2021 08/14/2021 3:06 AM MACHINE TENDER COVID: Suspected 08/14/2021 08/14/2021 08/15/2021 3:05 AM MACHINE TENDER COVID: Suspected 08/14/2021 08/14/2021 08/15/2021 6:25 AM MACHINE TENDER COVID: Suspected 06/02/2023 06/02/2023 06/02/2023 7:25 PM MACHINE TENDER COVID: Suspected 07/26/2023 07/26/2023 07/26/2023 3:10 PM MACHINE TENDER COVID: Suspected 09/25/2024 09/25/2024 09/25/2024 11:03 AM CDT Influenza, adult 09/25/2024 09/25/2024 10/02/2024 3:05 AM CDT documented as of this encounter Care Teams Can Maker Relationship Specialty Start Date End Date Alee Elizondo PA [address] [facility] [address] [place] [address] PCP - General Internal Medicine 02/01/17 06/29/23 Tho Kelsey MD [address] [facility] [address] [address] [facility] [address] [place] [address] PCP - General Family Medicine 06/30/23 07/04/23 Alee Elizondo PA [address] [place] [address] [place] [address] PCP - General Internal Medicine 07/05/23 Sharan Linton MD [address] [facility] [address] [place], [place] [id number] Referring Physician Gastroenterology 10/31/18 Taisha Gomez MD [address] [facility] [address] [place], [place] [id number] Referring Physician Pulmonary Disease 10/31/18 12/23/20 Parag Soto MD [address] [facility] [address] [place], [place] [id number] Referring Physician Rheumatology 10/31/18 12/23/20 Martha Starks MD [address] [facility] [address] [facility] [address] [place], [place] [id number] Consulting Physician Cardiology 12/24/20 Puneet Uribe MD [address] [facility] [address] [facility] [address] [place] [address] Consulting Physician Rheumatology 12/24/20 01/29/21 Shama Hines MD [address] [facility] [address] [place] [address] Consulting Physician Pain Management 01/19/21 Artis Grewal MD [address] [place] [address] Consulting Physician Rheumatology 01/30/21 Harrison Pena, JULIUS [address] [place] [address] Cover Marker 05/30/23 09/04/23 Nafisa Gregg, JULIUS [address] [place] [address] [place] [address] [place] [address] Cover Marker 06/06/23 06/12/23 Amy Mayes NP [address] [address] Nurse Practitioner Cardiovascular Disease 04/20/24 Shailesh Dunn MD [address] [facility] [address] [place] [address] Consulting Physician Pulmonary Disease 04/20/24 Sangita Farrar PA [address] [place] [address] Physician Operations Planner Rheumatology 05/15/24 documented as of this encounter
--- OUTSIDE RECORDS SUMMARY | 2024-10-02 10:56 | XMS_ITS | Encounter Summary ---
Author Organization [facility] Healthcare Address [address] [place] [address] Care Team Providers Care Service Station Helper Name Role Phone Sharan Linton MD Unavailable [phone] Martha Starks MD Unavailable [phone] Shama Hines MD Unavailable Artis Grewal MD Unavailable [phone] Alee Elizondo Primary Care Provider [phone] Amy Mayes NP Unavailable [phone] Shailesh Dunn MD Unavailable [phone] Sangita Farrar Unavailable [phone] Encounter Details Date Type Department Care Team (Late st Contact Info) Description 10/03/2023 Orders Only [facility] Information Management [address] [place] [address] Scanning, Provider Social History Tobacco Use Types Packs/Day Years Used Date Smoking Tobacco: Never Smokeless Tobacco: Never Comments:Never used Alcohol Use Standard Drinks/Week Comments No 0 (1 standard drink = 0.6 oz pur e alcohol) [facility] Utilities Answer Date Recorded In the [...] on file Legal Sex Female 8:04 PM REALTY LOAN SPECIALIST Gender Identity Female 02/15/2020 6:08 PM [...] documented as of this encounter Care Teams Service Station Helper Relationship Specialty Start Date End Date Alee Elizondo PA [address] [facility] [place] [address] [place] [address] PCP - General Internal Medicine 07/05/23 Sharan Linton MD Referring Physician Gastroenterology 10/31/18 Martha Starks MD Consulting Physician Cardiology 12/24/20 Shama Hines MD [address] [facility], [address] [address] Consulting Physician Pain Management 01/19/21 Artis Grewal MD [address] [place] [address] Consulting Physician Rheumatology 01/30/21 Amy Mayes NP [address] [address] Nurse Practitioner Cardiovascular Disease 04/20/24 Shailesh Dunn MD [address] [facility] [address] [address] Consulting Physician Pulmonary Disease 04/20/24 Sangita Farrar PA [address] [place] [address] Physician Advisor [employer] Founder Rheumatology 05/15/24 documented as of this encounter
--- OUTSIDE RECORDS SUMMARY | 2024-10-02 10:56 | XMS_ITS | Encounter Summary ---
Author Organization [facility] Healthcare Address [address] [place] [address] Care Team Providers Care Sonogram Technician Name Role Phone Sharan Linton MD Unavailable [phone] Martha Starks MD Unavailable [phone] Shama Hines MD Unavailable Artis Grewal MD Unavailable Alee Elizondo Primary Care Provider [phone] Amy Mayes NP Unavailable [phone] Shailesh Dunn MD Unavailable [phone] Sangita Farrar Unavailable [phone] Reason for Visit * Reason Onset Date Comments Medical Question/Miscellaneous 09/25/2024 Encounter Details Date Type Department Care Team (Late st Contact Info) Description 09/25/2024 Results Follow-Up [facility] Medical Group Family Medicine [address] [place] [address] Alee Elizondo PA [address] [facility] [address] [place] [address] [place] [address] Social History Tobacco Use Types Packs/Day Years Used Date Smoking Tobacco: Never Smokeless Tobacco: Never Comments:Never used Alcohol Use Standard Drinks/Week Comments No 0 (1 standard drink = 0.6 oz pur e alcohol) [facility] Utilities Answer Date Recorded In [...] often do you attend chur ch or episcopal services? 1 to 4 times per year 05/30/2024 Do you belong to any clubs o r organizations such as jehovah's witness groups, unions, fraternal or athletic groups, or [...] a care home (including now)? No 05/27/2023 PHQ-9 Answer Date [...] any time in the past 12 m [facility], were you homeless or living in a care home (including now)? No 05/30/2024 Personal Safety Answer Date Recorded Have you ever been in or are you currently in a harmful physical or emotional relationship or is someone making you feel afraid or unsafe? Denies 05/30/2024 Comments No Sex and Gender Information Value Date Recorded Sex Assigned at Not on file Legal Sex Female 8:04 PM CHIEF PILOT Gender Identity Female 02/15/2020 6:08 PM CDT Sexual Orientation Not on file documented as of this encounter Miscellaneous Notes * Telephone Encounter - Mary Ann French - 09/26/2024 11:29 AM CDT Call Back Caller???s Concern: Patient returning call. Relayed message in chart. Patient voiced understanding. Does message need to be routed? No * Result Encounter Note - Alee Elizondo PA - 09/25/2024 7:24 PM CDT Let pt know her mammogram is normal and will plan to repeat in 1 year. documented in this encounter Plan of Treatment Not on file documented as of this encounter Visit Diagnoses Not on filedocumented in this encounter Additional Health Concerns Infection Onset Date Last Indicated Resolved Time COVID: Suspected 09/25/2024 09/25/2024 09/25/2024 11:03 AM CDT Influenza, adult 09/25/2024 09/25/2024 10/02/2024 3:05 AM CDT documented as of this encounter Care Teams Sonogram Technician Relationship Specialty Start Date End Date Alee Elizondo PA [address] [facility] [address] [place] [address] PCP - General Internal Medicine 07/05/23 Sharan Linton MD Referring Physician Gastroenterology 10/31/18 Martha Starks MD Consulting Physician Cardiology 12/24/20 Shama Hines MD [address] [facility] [address] Consulting Physician Pain Management 01/19/21 Artis Grewal MD [address] [place] [address] Consulting Physician Rheumatology 01/30/21 Amy Mayes NP [address] [facility] [address] [place] [address] [address] [place] [address] Nurse Practitioner Cardiovascular Disease 04/20/24 Shailesh Dunn MD [address] [address] Consulting Physician Pulmonary Disease 04/20/24 Sangita Farrar PA [address] [place] [address] Physician Shoe Cleaner Rheumatology 05/15/24 documented as of this encounter
--- OUTSIDE RECORDS SUMMARY | 2024-10-02 10:56 | XMS_ITS | Referral Summary ---
Author Organization [facility] [address] Address [address] [place] [address] Care Team Providers Care Instrument Lens Grinder Apprentice Name Role Phone Sharan Linton MD Unavailable [phone] Martha Starks MD Unavailable [phone] hSama Hines MD Unavailable Artis Grewal MD Unavailable [phone] Alee Elizondo Primary Care Provider [phone] Amy Mayes NP Unavailable [phone] Shailesh Dunn MD Unavailable [phone] Sangita Farrar Unavailable [phone] Encounters Date Type Department Care Team Description 09/26/[address] [facility] Medicine [address] [place] [address] [place] [phone] Alee Elizondo PA Breast cancer screening by mammogram (Primary Dx) 09/25/2024 Results Follow-Up [facility] [address] [place] [address] [place] [phone] Alee Elizondo PA 09/25/2024 11:00 AM CDT Office Visit [facility] Care at [address] [phone] Jessica Collins NP Influenza A (Primary Dx); Acute cough 09/20/[address] [facility] [address] [place] [phone] Michael Motta MD med clarification 09/20/2024 8:00 AM CDT Office Visit [facility] Cardiology [address] [place] [address] Devika Marin MD Venous insufficiency (chronic) (peripheral) (Primary Dx); Mixed hyperlipidemia 09/14/[address] [address] Codi Branham 09/13/2024 1:44 PM CDT - 09/13/2024 11:59 PM CDT Hospital Encounter [facility] Di[facility] Imaging [address] [place] [address] Chronic pain of right knee Discharge Disposition: Discharge to home or self care 09/13/2024 2:45 PM CDT Office Visit [facility] [address] [place] [phone] Michael Motta MD Chronic pain of right knee (Primary Dx); History of total knee arthroplasty, right 09/04/2024 Results Follow-Up [address] [place] [address] Alee Elizondo PA 08/31/2024 Telephone [facility] [address] [place] [address] Road [address] [place] [address] Alee Elizondo PA Medical Question/Miscellaneou s 08/31/2024 Orders Only [address] [place] [address] ProviderTania MD 08/29/2024 Nurse Triage [address] [place] [address] Alee Elizondo PA 08/29/[address] [facility] Pulmonary [address] [address] Shailesh Dunn MD Med Refill (Ropinirol HCL 0.5MG tab) 08/24/2024 Results Follow-Up [address] [address] Sangita Farrar PA 08/23/2024 Orders Only [facility] Information Management [address] [place] [address] Alee Elizondo PA 08/23/[address] [address] Sangita Farrar PA Orencia Approved 08/23/2024 11:30 AM MICROECONOMICS PROFESSOR Office Visit [address] [address] Sangita Farrar PA 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) (Primary Dx); Primary osteoarthritis involving multiple joints; Encounter for medication monitoring 08/21/[address] [address] Codi Branham 08/02/[address] [facility] [address] [address] Shailesh Dunn MD Orders Only 08/02/2024 11:45 AM MICROECONOMICS PROFESSOR Office Visit [facility] [address] [phone] Magaly Snider NP OWEN on CPAP (Primary Dx); OWEN (obstructive sleep apnea); PLMD (periodic limb movement disorder) 08/01/[address] [facility] [address] [facility] [address] [place] [address] Alee Elizondo PA Pre-diabetes (Primary Dx); Mixed hyperlipidemia; Fatigue, unspecified type 07/30/2024 9:00 AM MICROECONOMICS PROFESSOR Office Visit [facility] [address] [place] [phone] Sangita Farrar PA 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) (Primary Dx); Primary osteoarthritis involving multiple joints; Encounter for medication monitoring 07/24/2024 1:27 PM MICROECONOMICS PROFESSOR - 07/24/2024 11:59 PM MICROECONOMICS PROFESSOR Hospital Encounter [facility] Di[facility] [address] [place] [address] Status post total knee replacement using cement, right Discharge Disposition: Discharge to home or self care 07/24/[address] [facility] [address] [facility] [address] [place] [address] Alee Elizondo PA Referral Request (/) 07/24/2024 2:00 PM MICROECONOMICS PROFESSOR Office Visit [facility] [address] [place] [address] [address] [place] [address] Michael Motta MD Status post total knee replacement using cement, right (Primary Dx) 07/12/[address] [facility] [address] [place] [address] [address] [place] [address] Michael Motta MD ret call from Last 3 Months Allergies Active Allergy Reactions Criticality Noted Date Comments Teriparatide Other (See comments) Low 09/06/2023 PT STATES IT CAUSES LEG CRAMPS AND INDIGESTION Meperidine Hives Medium 09/09/2016 Penicillins Hives Medium Medications calcium carbonate-vitamin D3 600 mg(1,500mg) -400 unit capsule otc 0 011 Active cholecalciferol (VITAMIN D-3) 5,000 unit capsule Take 1 capsule (5,000 Units total) by mouth daily with dinner Active clobetasoL (CLOBEX) 0.05 % lotion Apply 1 application topically 2 (two) times a day as needed (to the scalp) 020 Active docusate sodium (COLACE) 100 mg capsuleIndication s:constipation Take 2 capsules (200 mg total) by mouth 2 (two) times a day Active cetirizine (ZyrTEC) 10 mg tabletIndications :Sinus congestion Take 1 tablet (10 mg total) by mouth daily 30 tablet 11 022 Active Linzess 290 mcg capsule Take 1 capsule (290 mcg total) by mouth daily 022 Active ketoconazole (NIZORAL) 2 % shampoo WASH SCALP 3 TIMES WEEKLY 024 Active bumetanide (BUMEX) 1 mg tabletIndications :Edema, lower extremity TAKE 1 TABLET BY MOUTH TWICE A DAY 180 tablet 1 024 Active cyclobenzaprine (FLEXERIL) 5 mg tabletIndications :Primary osteoarthritis involving multiple joints TAKE 1-2 TABLETS BY MOUTH NIGHLTY NEEDED 60 tablet 2 024 Active buPROPion XL (WELLBUTRIN XL) 150 mg 24 hr tabletIndications :Anxiety with Depression Take 1 tablet (150 mg total) by mouth every morning 90 tablet 2 024 Active potassium chloride ER 10 mEq CR tabletIndications :Venous insufficiency (chronic) (peripheral) Take 1 tablet/capsule (10 mEq total) by mouth 2 (two) times a day 180 tablet/caps ule 3 024 Active aspirin 81 mg enteric coated tabletIndications :Deep Vein Thrombosis Prevention Take 1 tablet (81 mg total) by mouth 2 (two) times a day for 28 days 56 tablet 024 Active oxyCODONE-acetami nophen (PERCOCET) 5-325 mg per tabletIndications :DID NOT BRING BOTTLE TO SEE HOW PRESCRIBED Take 1-2 tablets by mouth every 4 (four) hours as needed for pain 50 tablet 024 Active fluconazole (DIFLUCAN) 150 mg tabletIndications :Yeast infection Take one tab now. Repeat in 7 days if symptoms persist. 2 tablet 024 Active lactobacillus combination no.9 4 billion cell capsuleIndication s:Orthopedic aftercare One tablet daily 30 capsule 025 Active sulfaSALAzine (AZULFIDINE) 500 mg tablet Take 1 tablet (500 mg total) by mouth 2 (two) times a day 60 tablet 025 Active folic acid (FOLVITE) 1 mg tablet Take 2 tablets (2,000 mcg total) by mouth daily 180 tablet 1 025 Active hydroxychloroquin e (PLAQUENIL) 200 mg tabletIndications :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) Take 1 tablet (200 mg total) by mouth 2 (two) times a day 180 tablet 1 025 Active methotrexate 2.5 mg tabletIndications :Rheumatoid Arthritis,autoimm une disease Take 8 tablets (20 mg total) by mouth once a week 96 tablet 1 025 2024 Active rOPINIRole (REQUIP) 0.5 mg tabletIndications :PLMD (periodic limb movement disorder) Take 2 tablets (1 mg total) by mouth nightly 180 tablet 2 025 Active fluticasone propionate (FLONASE) 50 mcg/actuation nasal spray Administer 2 sprays into each nostril daily 3 each 4 025 Active rosuvastatin (CRESTOR) 10 mg tabletIndications :Mixed hyperlipidemia Take 1 tablet (10 mg total) by mouth daily 90 tablet 2 025 Active montelukast (SINGULAIR) 10 mg tablet Take 1 tablet (10 mg total) by mouth nightly 90 tablet 1 025 Active meloxicam (MOBIC) 15 mg tabletIndications :Chronic pain of both knees Take 0.5 tablets (7.5 mg total) by mouth daily 15 tablet 2 025 Active mecobalamin (B12 ACTIVE ORAL) Take by mouth Act alexys DULoxetine DR (CYMBALTA) 60 mg capsuleIndication s:Moderate episode of recurrent major depressive disorder (HCC) TAKE ONE CAPSULE BY MOUTH DAILY 9 capsule 025 Active gabapentin (NEURONTIN) 100 mg capsule TAKE TWO CAPSULES BY MOUTH TWICE DAILY @9AM-5PM 120 capsule 11 025 Active Orencia ClickJect 125 mg/mL auto-injector 025 Active benzonatate (TESSALON) 200 mg capsuleIndication s:Influenza A,Acute cough Take 1 capsule (200 mg total) by mouth 3 (three) times a day as needed for cough 30 capsule 025 Active fluticasone propionate (FLONASE) 50 mcg/actuation nasal spray Administer 2 sprays into each nostril daily 3 each 4 024 2024 Discontinued(R eorder) meloxicam (MOBIC) 15 mg tabletIndications :Chronic pain of both knees TAKE 1/2 TABLET BY MOUTH DAILY 15 tablet 2 024 2024 Discontinued(R eorder) rosuvastatin (CRESTOR) 10 mg tabletIndications :Mixed hyperlipidemia Take 1 tablet (10 mg total) by mouth daily 90 tablet 2 024 2024 Discontinued(R eorder) DULoxetine DR (CYMBALTA) 60 mg capsuleIndication s:Moderate episode of recurrent major depressive disorder (HCC) TAKE 1 CAPSULE BY MOUTH EVERY DAY 90 capsule 2 024 2024 Discontinued gabapentin (NEURONTIN) 100 mg capsule TAKE 2 CAPSULES BY MOUTH TWICE A DAY 120 capsule 2 024 2024 Discontinued montelukast (SINGULAIR) 10 mg tablet TAKE 1 TABLET BY MOUTH EVERY DAY AT NIGHT 90 tablet 1 024 2024 Discontinued(R eorder) oseltamivir (Tamiflu) 75 mg capsuleIndication s:Influenza A Take 1 capsule (75 mg total) by mouth 2 (two) times a day for 5 days 10 capsule 025 2024 Active Problems Patient Care Coordination No te Formatting of this note migh t be different from the original. CAD for BIC Problem Noted Date Diagnosed Date Primary osteoarthritis 06/01/2024 Arthritis of right knee 05/30/2024 Encounter for pre-operative examination 05/07/20 Assessment & Plan (05/07/2024 8:57 PM MICROECONOMICS PROFESSOR): I have examined this patient and ordered [...] She has had evaluation by Urology at [facility] and has been told there is probably [...] 08/03/2023 Assessment & Plan (05/07/2024 8:56 PM MICROECONOMICS PROFESSOR): Discussed the patient's BMI. The BMI is [...] provided. Assessment & Plan (09/06/2023 9:38 AM MICROECONOMICS PROFESSOR): Discussed the patient's BMI. The BMI is above average. BMI management plan is completed. BMI Follow-up includes: nutrition counseling, exercise counseling and education provided. Patient has an obesity-related condition (not limited to: hypertension, obstructive sleep apnea, osteoarthritis, hyperlipidemia, diabetes, etc.). Therefore, morbid obesity may be documented for patients with a BMI between 35.00-39.99. Assessment & Plan (08/07/2023 7:51 PM MICROECONOMICS PROFESSOR): Discussed the patient's BMI. The BMI is above average. BMI management plan is completed. BMI Follow-up includes: nutrition counseling, exercise counseling and education provided. Patient has an obesity-related condition (not limited to: hypertension, obstructive sleep apnea, osteoarthritis, hyperlipidemia, diabetes, etc.). Therefore, morbid obesity may be documented for patients with a BMI between 35.00-39.99. Assessment & Plan (08/03/2023 7:45 AM MICROECONOMICS PROFESSOR): Discussed the patient's BMI. The BMI is above average. BMI management plan is completed. BMI Follow-up includes: nutrition counseling, exercise counseling and education provided. Primary osteoarthritis of right knee 07/08/2023 Assessment & Plan (05/07/2024 8:56 PM MICROECONOMICS PROFESSOR): Patient has arthritis in the right knee. Planning a total knee replacement with Dr. Alexus Motta on May 30 Assessment & Plan (08/03/2023 8:28 AM MICROECONOMICS PROFESSOR): Continue per ortho. She is seeing some improvement but it is difficult to know if the knee is rheumatoid versus osteo versus other etiology. Will await recommendations from JACQUI Raya but definitely encouraged her to become active as soon as possible. Status post total knee replacement using cement, right 05/19/2023 Assessment & Plan (06/02/2023 4:56 PM MICROECONOMICS PROFESSOR): Status post total knee replacement with Dr. [...] provided. Assessment & Plan (06/02/2023 8:27 AM MICROECONOMICS PROFESSOR): Discussed the patients BMI: The BMI is [...] 12/20/2022 Assessment & Plan (05/07/2024 8:55 PM MICROECONOMICS PROFESSOR): Patient is on medication for her rheumatoid arthritis managed by [facility] Assessment & Plan (01/22/2024 8:13 PM CDT): Medications from [facility] contribute to her immunosuppressive state. Assessment & Plan (09/06/2023 9:41 AM MICROECONOMICS PROFESSOR): Medications are managed by [facility] for her rheumatoid arthritis Assessment & Plan (04/06/2023 7:44 PM CDT): Managed by [facility]. Currently on Plaquenil methotrexate Orencia folic [...] She has had evaluation by Urology at [facility] and has been told there is probably [...] capacity. Assessment & Plan (09/06/2023 9:41 AM MICROECONOMICS PROFESSOR): Continue per . She did not tolerate [...] Pate. Assessment & Plan (07/18/2022 10:20 AM MICROECONOMICS PROFESSOR): CT revealed pelvic lipomatosis that is compressing [...] 02/11/2022 Assessment & Plan (09/06/2023 9:41 AM MICROECONOMICS PROFESSOR): No change. Dysfunction of both eustachian tubes 02/11/2022 Myalgia, lower leg 01/11/2022 PLMD (periodic limb movement disorder) Assessment & Plan (08/02/2024 11:49 AM MICROECONOMICS PROFESSOR): Asymptomatic Assessment & Plan (06/22/2022 10:31 AM MICROECONOMICS PROFESSOR): Will continue Requip 1 mg nightly Assessment [...] bedtime. Assessment & Plan (07/13/2021 11:25 AM MICROECONOMICS PROFESSOR): Due to the patient stating that she [...] 06/04/2020 Assessment & Plan (08/23/2024 10:16 AM MICROECONOMICS PROFESSOR): Hepatitis negative 06/2020 Tspot negative 06/2020 Continue routine lab monitoring Maintain routine eye exams throughout the duration of taking hydroxychloroquine Assessment & Plan (07/30/2024 8:24 AM MICROECONOMICS PROFESSOR): Hepatitis negative 06/2020 Tspot negative 06/2020 Continue [...] hydroxychloroquine Assessment & Plan (09/01/2023 8:34 AM MICROECONOMICS PROFESSOR): Hepatitis negative 06/2020 Tspot negative 06/2020 Continue routine lab monitoring Maintain routine eye exams throughout the duration of taking hydroxychloroquine Assessment & Plan (06/29/2023 2:19 PM MICROECONOMICS PROFESSOR): Hepatitis negative 06/2020 Tspot negative 06/2020 Continue [...] hydroxychloroquine Assessment & Plan (07/14/2022 2:58 PM MICROECONOMICS PROFESSOR): Hepatitis negative 06/2020 Tspot negative 06/2020 Continue routine lab monitoring Maintain routine eye exams throughout the duration of taking hydroxychloroquine Assessment & Plan (06/03/2022 9:58 AM MICROECONOMICS PROFESSOR): Hepatitis negative 06/2020 Tspot negative 06/2020 Continue [...] hydroxychloroquine Assessment & Plan (09/03/2021 8:29 AM MICROECONOMICS PROFESSOR): Hepatitis negative 06/2020 Tspot negative 06/2020 Continue routine lab monitoring Maintain routine eye exams throughout the duration of taking hydroxychloroquine Assessment & Plan (06/03/2021 4:17 PM MICROECONOMICS PROFESSOR): Hepatitis negative 06/2020 Tspot negative 06/2020 Continue [...] hydroxychloroquine Assessment & Plan (09/02/2020 1:16 PM MICROECONOMICS PROFESSOR): Hepatitis negative 06/2020 Tspot negative 06/2020 Continue routine lab monitoring Maintain routine eye exams throughout the duration of taking hydroxychloroquine Assessment & Plan (07/09/2020 12:23 PM MICROECONOMICS PROFESSOR): Hepatitis negative 06/2020 Tspot negative 06/2020 Continue routine lab monitoring Maintain routine eye exams throughout the duration of taking hydroxychloroquine Drug-induced constipation 08/13/2019 Assessment & Plan (05/07/2024 8:54 PM MICROECONOMICS PROFESSOR): Patient with chronic constipation. Has been on [...] linzess Assessment & Plan (08/13/2019 8:57 AM MICROECONOMICS PROFESSOR): On Movantik with Dr. Soto Herpes zoster without complication 12/13/2018 Assessment & Plan (12/23/2018 10:18 PM CDT): Valtex to pharmacy. She has had shingles in the past. Pre-diabetes 10/31/2018 Assessment & Plan (05/07/2024 8:55 PM MICROECONOMICS PROFESSOR): Pre-diabetes/hyperglycemia is a precursor to Dm. Stressed [...] diabetes. Assessment & Plan (09/06/2023 9:40 AM MICROECONOMICS PROFESSOR): Pre-diabetes/hyperglycemia is a precursor to Dm. Stressed [...] diabetes. Assessment & Plan (09/11/2021 11:22 PM MICROECONOMICS PROFESSOR): Pre-diabetes/hyperglycemia is a precursor to Dm. Stressed importance of working on diet (decrease your simple sugars and one carbohydrate with each meal) and increase you exercise to achieve weight loss and this will help prevent you from progressing to diabetes. Assessment & Plan (05/29/2021 8:18 PM MICROECONOMICS PROFESSOR): Pre-diabetes/hyperglycemia is a precursor to Dm. Stressed [...] diabetes. Assessment & Plan (08/31/2020 9:34 AM MICROECONOMICS PROFESSOR): Pre-diabetes is a precursor to Dm. Stressed [...] diabetes. Assessment & Plan (08/13/2019 9:00 AM MICROECONOMICS PROFESSOR): This is a significant, separately identifiable problem [...] 10/31/2018 Assessment & Plan (05/07/2024 8:54 PM MICROECONOMICS PROFESSOR): Depression symptoms are stable with Wellbutrin XL 150 Cymbalta 60 b.i.d. Assessment & Plan (04/21/2024 8:50 PM CDT): Depression symptoms are stable with the Wellbutrin XL 150 and Cymbalta 60 b.i.d. Assessment & Plan (01/22/2024 8:11 PM CDT): Depression symptoms are stable with Wellbutrin and Cymbalta Assessment & Plan (09/06/2023 9:40 AM MICROECONOMICS PROFESSOR): Depression is stable with Wellbutrin and Cymbalta Assessment & Plan (08/03/2023 8:31 AM MICROECONOMICS PROFESSOR): Stable with Cymbalta 60 and Wellbutrin XL [...] Cymbalta Assessment & Plan (09/11/2021 11:26 PM MICROECONOMICS PROFESSOR): Continue Wellbutrin and Cymbalta Assessment & Plan (05/29/2021 8:22 PM MICROECONOMICS PROFESSOR): Continue Wellbutrin and Cymbalta Assessment & Plan (05/24/2021 10:39 AM MICROECONOMICS PROFESSOR): Continue Wellbutrin and Cymbalta Assessment & Plan (12/24/2020 9:07 AM CDT): Continue wellbutrin and cymbalta Assessment & Plan (08/31/2020 9:35 AM MICROECONOMICS PROFESSOR): Continue wellbutrin and cymbalta Assessment & Plan (02/18/2020 9:47 PM CDT): Stable with the Cymbalata Assessment & Plan (08/13/2019 8:59 AM MICROECONOMICS PROFESSOR): Stable with Cymbalta and Wellbutrin Assessment & [...] regimen. Med list updated to reflect the [id number] one daily and Prozac 40mg. Mixed hyperlipidemia 03/29/2018 Assessment & Plan (05/07/2024 8:54 PM MICROECONOMICS PROFESSOR): Encouraged patient to follow low fat/low chol [...] statin Assessment & Plan (09/06/2023 9:42 AM MICROECONOMICS PROFESSOR): Encouraged patient to follow low fat/low chol [...] statin Assessment & Plan (09/11/2021 11:26 PM MICROECONOMICS PROFESSOR): Encouraged patient to follow low fat/low chol diet like the Mediterranean diet. Increase good fats in the diet. Increase exercise. Monitor labs as needed. Continue statin Assessment & Plan (05/29/2021 8:22 PM MICROECONOMICS PROFESSOR): Encouraged patient to follow fat/low chol diet like the Mediterranean diet. Increase good fats in the diet. Increase exercise. Monitor labs as needed. Continue statin Assessment & Plan (05/24/2021 10:39 AM MICROECONOMICS PROFESSOR): Encouraged patient to follow fat/low chol diet like the Mediterranean diet. Increase good fats in the diet. Increase exercise. Monitor labs as needed. Continue statin Assessment & Plan (12/24/2020 9:07 AM CDT): Encouraged patient to follow fat/low chol diet like the Mediterranean diet. Increase good fats in the diet. Increase exercise. Monitor labs as needed. Continue statin Assessment & Plan (08/31/2020 9:34 AM MICROECONOMICS PROFESSOR): Encouraged patient to follow fat/low chol diet like the Mediterranean diet. Increase good fats in the diet. Increase exercise. Monitor labs as needed. Continue statin Assessment & Plan (02/18/2020 9:46 PM CDT): Encouraged patient to continue low fat/low chol diet. Continue exercise. Increase good fats in the diet. Monitor labs as needed. Assessment & Plan (08/13/2019 8:59 AM MICROECONOMICS PROFESSOR): Encouraged patient to continue low fat/low chol [...] future Assessment & Plan (09/06/2023 9:40 AM MICROECONOMICS PROFESSOR): Continue PPI Assessment & Plan (04/06/2023 7:36 PM CDT): Continue PPI p.r.n. Assessment & Plan (01/20/2023 8:13 PM CDT): Continue PPI Assessment & Plan (09/12/2022 6:13 PM CDT): Continue PPI p.r.n. Assessment & Plan (06/03/2022 3:40 PM MICROECONOMICS PROFESSOR): Pyrosis poorly controlled on Nexium. Pt has [...] PPI Assessment & Plan (09/11/2021 11:26 PM MICROECONOMICS PROFESSOR): Continue PPI Assessment & Plan (12/24/2020 9:05 AM CDT): Continue PPI Assessment & Plan (02/18/2020 9:45 PM CDT): Continue PPI. Saw Dr. Linton for increased GERD sxs. If persist, encouraged to followup again with Dr. Linton. Assessment & Plan (08/13/2019 8:58 AM MICROECONOMICS PROFESSOR): Stable with PPI Assessment & Plan (04/29/2019 [...] exertion) Assessment & Plan (06/22/2022 10:30 AM MICROECONOMICS PROFESSOR): Patient is not currently using inhalers. She [...] 10/14/2015 Assessment & Plan (08/02/2024 11:49 AM MICROECONOMICS PROFESSOR): Due to the patient stating the pressure [...] readjusted. She denied need for supplies. DME [facility] patient Assessment & Plan (05/07/2024 8:55 PM MICROECONOMICS PROFESSOR): Continue with CPAP. Assessment & Plan (04/21/2024 8:49 PM CDT): Continue per Dr. Dunn. Has all her needed supplies for CPAP which she is using every night. Continue with Requip 0.5 mg HS for restless leg Assessment & Plan (01/22/2024 8:08 PM CDT): Continue CPAP per Dr. Dunn Assessment & Plan (09/06/2023 9:40 AM MICROECONOMICS PROFESSOR): Continue CPAP Assessment & Plan (06/21/2023 10:14 AM MICROECONOMICS PROFESSOR): Patient continue to wear her CPAP at [...] CPAP Assessment & Plan (06/22/2022 10:31 AM MICROECONOMICS PROFESSOR): Will continue CPAP therapy at an auto titrating range of 7-20 cm water pressure. Denied need for supplies. DME [facility] patient Assessment & Plan (05/02/2022 9:15 PM [...] water pressure. Patient denied need for supplies. [employer] [facility]. Patient is benefitting CPAP Assessment & Plan (09/11/2021 11:22 PM MICROECONOMICS PROFESSOR): Continue CPAP. Patient has all needed supplies. Assessment & Plan (07/13/2021 11:27 AM MICROECONOMICS PROFESSOR): Due to the patient stating she does not have enough pressure in her machine, I have increased the pressure to 13 cm water pressure. The patient denied need for for supplies. DME company [facility]. Have also ordered a new smart card set at 13 cm water pressure. Benefitting from CPAP therapy Assessment & Plan (05/29/2021 8:14 PM MICROECONOMICS PROFESSOR): Continue CPAP. Assessment & Plan (02/17/2021 11:09 AM CDT): The patient continues to be compliant with her CPAP at 8 cm water pressure. She has developed worsening daytime hypersomnia. She also has morning headaches and dry mouth. I have recommended proceeding with a CPAP titration study starting at 8 cm water pressure. Her DME is [facility]. Assessment & Plan (12/24/2020 9:04 AM CDT): Continue CPAP. Would like to see Pulm/sleep at [facility] as difficulty getting in consistently at [place] and most of her care is now [facility] Assessment & Plan (02/18/2020 9:44 PM CDT): Continue CPAP Assessment & Plan (08/13/2019 8:46 AM MICROECONOMICS PROFESSOR): Using the CPAP. Has equipment as needed. [...] noted. Assessment & Plan (08/23/2024 10:16 AM MICROECONOMICS PROFESSOR): 02/2021 XR L knee with mild to moderate OA, now s/p B TKA. Following with ortho as planned. Assessment & Plan (07/30/2024 11:23 AM MICROECONOMICS PROFESSOR): 02/2021 XR L knee with mild to [...] March. Assessment & Plan (09/01/2023 3:42 PM MICROECONOMICS PROFESSOR): 02/2021 XR L knee with mild to moderate OA, R knee negative. Had injections with ortho without benefit, now s/p L TKA. Assessment & Plan (06/30/2023 12:46 PM MICROECONOMICS PROFESSOR): 02/2021 XR L knee with mild to [...] g/d. Assessment & Plan (07/15/2022 1:41 PM MICROECONOMICS PROFESSOR): 02/2021 XR L knee with mild to moderate OA, R knee negative. Had injections with ortho with benefit. Unable to afford PT. Can continue Tylenol Arthritis, not to exceed 4 g/d. Assessment & Plan (06/03/2022 9:58 AM MICROECONOMICS PROFESSOR): 02/2021 XR L knee with mild to [...] evaluation. Assessment & Plan (09/03/2021 11:27 AM MICROECONOMICS PROFESSOR): XR L knee with mild to moderate [...] able. Assessment & Plan (06/04/2021 10:27 AM MICROECONOMICS PROFESSOR): XR L knee with mild to moderate [...] above. Assessment & Plan (09/03/2020 12:23 PM MICROECONOMICS PROFESSOR): 10/27/2017 XR L knee: mild tricompartmental OA. Will continue meloxicam as above. Assessment & Plan (07/09/2020 12:24 PM MICROECONOMICS PROFESSOR): 10/27/2017 XR L knee: mild tricompartmental OA. Will continue meloxicam as above. In the future may consider trial of PT. Seropositive rheumatoid arthritis of multiple si marleny 11/17/2013 Overview (03/15/2024): Imaging 01/16/2021 XR R [...] examination. Assessment & Plan (08/23/2024 12:54 PM MICROECONOMICS PROFESSOR): Moderate cdai with report of increasing pain, [...] needed. Assessment & Plan (07/30/2024 11:22 AM MICROECONOMICS PROFESSOR): Moderate cdai with report of increased morning [...] phone visit with labs near her home ([facility] in [place]), but the following month will need to plan for an in person visit. She expressed understanding and agreement with this plan. Continue methotrexate 20 mg weekly, folic acid 2 mg daily, and hydroxychloroquine 200 mg BID. Labs today as below. Assessment & Plan (05/07/2024 8:55 PM MICROECONOMICS PROFESSOR): Managed by [facility]. Currently on Plaquenil and methotrexate and Orencia folic acid Mobic and gabapentin. Stressed she needs to be in contact with her rn new graduate on when and which medicines to stop for the surgery. Assessment & Plan (04/21/2024 8:49 PM CDT): Continue per [facility]. They currently manage her rheumatoid [...] Plan (01/22/2024 8:17 PM CDT): Continue per [facility] as they manage her condition. Assessment & Plan (11/24/2023 9:58 AM CDT): Low cdai without inflammatory sounding pain. Will continue methotrexate 20 mg weekly, folic acid 2 mg daily, hydroxychloroquine 200 mg BID, and Orencia and monitor. Labs today as below. Follow up in 3 months or sooner as needed. Assessment & Plan (09/06/2023 9:42 AM MICROECONOMICS PROFESSOR): Rheumatoid arthritis is managed by [facility]. Currently on Plaquenil methotrexate Orencia and folic acid Assessment & Plan (09/01/2023 3:39 PM MICROECONOMICS PROFESSOR): Overall stable without notable synovitis and no inflammatory sounding pain. Will continue methotrexate 20 mg weekly, folic acid 2 mg daily, hydroxychloroquine 200 mg BID, and Orencia and monitor. Labs today as below. Follow up in 3 months or sooner as needed. Assessment & Plan (08/03/2023 8:28 AM MICROECONOMICS PROFESSOR): Continue with rheumatology. Assessment & Plan (06/30/2023 12:43 PM MICROECONOMICS PROFESSOR): Overall stable without notable synovitis and no inflammatory sounding pain. Will continue methotrexate 20 mg weekly, folic acid 2 mg daily, hydroxychloroquine 200 mg BID, and Orencia and monitor. Labs today as below. Assessment & Plan (06/02/2023 4:49 PM MICROECONOMICS PROFESSOR): Continue per Rheumatology Assessment & Plan (04/06/2023 7:35 PM CDT): Continue per Rheumatology. She has been in discussion with them on what medications to stop prior to her knee surgery. She states she was told to take all of her medicines accept the Orencia. Assessment & Plan (01/20/2023 8:12 PM CDT): Continue per Rheumatology [facility] Assessment & Plan (01/13/2023 3:42 [...] Plan (09/12/2022 6:06 PM CDT): Continue with [facility] Assessment & Plan (07/15/2022 1:41 PM MICROECONOMICS PROFESSOR): Low cdai. Significantly improved after IM triamcinolone [...] needed. Assessment & Plan (06/03/2022 3:37 PM MICROECONOMICS PROFESSOR): High cdai. Previously felt well controlled with current regimen. Due to burden of disease will give patient a triamcinolone injection. Patient made aware of SE of steroids including but not limited to HTN, increased blood glucose, cataracts, glaucoma, AVN, and osteoporosis with long wall mining machine tender use. Should she flare again shortly after [...] (01/23/2022 4:57 PM CDT): Continue management per [facility] Assessment & Plan (12/07/2021 9:02 AM CDT): Low cdai. Denies inflammatory sounding joint pain. Continue methotrexate 25 mg weekly, folic acid to 2 mg daily, Rinvoq 15 mg daily, hydroxychloroquine 200 mg BID, and cyclobenzaprine 5 mg qhs and monitor. Labs today as below. Plan for follow up in 3 months or sooner as needed. Assessment & Plan (09/11/2021 11:14 PM MICROECONOMICS PROFESSOR): Continue per [facility] Assessment & Plan (09/03/2021 11:25 AM MICROECONOMICS PROFESSOR): cdai = 12. Pt suspects increased joint [...] needed. Assessment & Plan (06/04/2021 10:25 AM MICROECONOMICS PROFESSOR): Low cdai. Denies inflammatory sounding pain at present. Will plan to continue methotrexate 25 mg weekly, folic acid to 2 mg daily, Rinvoq 15 mg daily, hydroxychloroquine 200 mg BID, and cyclobenzaprine 5 mg qhs and monitor. Labs today as below. Plan for follow up in 3 months or sooner as needed. Assessment & Plan (05/31/2021 9:15 PM MICROECONOMICS PROFESSOR): Continue per Rheumatology Assessment & Plan (05/29/2021 8:13 PM MICROECONOMICS PROFESSOR): Continue per Rheumatology. Currently on Plaquenil methotrexate and folic acid. Assessment & Plan (05/24/2021 10:38 AM MICROECONOMICS PROFESSOR): Continue per Rheumatology Assessment & Plan (03/05/2021 [...] needed. Assessment & Plan (09/03/2020 12:22 PM MICROECONOMICS PROFESSOR): Low cdai. Continues to feel improved with [...] needed. Assessment & Plan (08/31/2020 9:34 AM MICROECONOMICS PROFESSOR): Continue per [facility] Assessment & Plan (07/09/2020 12:22 PM MICROECONOMICS PROFESSOR): 64yoF with a h/o seropositive RA diagnosed [...] time. Assessment & Plan (06/04/2020 11:14 AM MICROECONOMICS PROFESSOR): 64yoF with a h/o seropositive RA diagnosed [...] needed. Assessment & Plan (05/14/2020 9:33 PM MICROECONOMICS PROFESSOR): Refer to new [facility] as Dr. Soto has . Assessment & Plan (02/18/2020 9:46 PM CDT): Continue per Rheum Assessment & Plan (08/13/2019 8:59 AM MICROECONOMICS PROFESSOR): Continue per Dr. Soto Assessment & Plan [...] responding to Reclast. Forteo was tried by [facility] and she could not tolerate. [...] have very limited treatment options to offer. Prolia would cost $250/injection which she states it not affordable. Evenity too was expensive. Given the limitations in treatment and the severity of her osteoporosis, recommended evaluation by the [facility], unfortunately their first available appt was in November 2024. Recommended today that she check with [facility] Osteoporosis center (at [facility]) to see how far out they are scheduling new patients, though she does not like this option due to distance from her house. Assessment & Plan (09/06/2023 9:40 AM MICROECONOMICS PROFESSOR): Managed by [facility]. Per patient they are making a referral to bone metabolism at [facility] she has not seen significant improvement with the Forteo or the Reclast. Assessment & Plan (09/01/2023 3:43 PM MICROECONOMICS PROFESSOR): DEXA: Lspine BMD 0.809 Tscore -2.2, L [...] of her osteoporosis, recommend evaluation by the [facility], provided contact info for Dr. Castillo. Pt in agreement with plan. Assessment & Plan (06/30/2023 12:49 PM MICROECONOMICS PROFESSOR): DEXA: Lspine BMD 0.809 Tscore -2.2, L [...] PM CDT): Continue to monitor. Managed by [facility]. Patient is on Reclast calcium vitamin-D [...] exercise Assessment & Plan (07/15/2022 1:42 PM MICROECONOMICS PROFESSOR): 01/27/2021 DEXA: Lspine -1.8, L femoral neck -1.9, L total hip -1.2, R femoral neck -2.3, R total hip -1.0, FRAX major 32% and hip 7%. Received Reclast 07/2021. Continue yearly Reclast, scheduled for 07/22 Assessment & Plan (06/03/2022 3:38 PM MICROECONOMICS PROFESSOR): 01/27/2021 DEXA: Lspine -1.8, L femoral neck [...] Plan (01/23/2022 5:02 PM CDT): Managed by [facility] currently on Reclast calcium and vitamin-D Assessment & Plan (12/07/2021 9:04 AM CDT): 01/27/2021 DEXA: Lspine -1.8, L femoral neck -1.9, L total hip -1.2, R femoral neck -2.3, R total hip -1.0, FRAX major 32% and hip 7%. Received Reclast 07/2021. Continue yearly Reclast. Assessment & Plan (09/03/2021 11:26 AM MICROECONOMICS PROFESSOR): 01/27/2021 DEXA: Lspine -1.8, L femoral neck -1.9, L total hip -1.2, R femoral neck -2.3, R total hip -1.0, FRAX major 32% and hip 7%. Received Reclast 07/2021. Continue yearly reclast and daily vitamin D-calcium supplement. Assessment & Plan (06/04/2021 10:27 AM MICROECONOMICS PROFESSOR): 01/27/2021 DEXA: Lspine -1.8, L femoral neck [...] order provided today, she will schedule at [facility] Assessment & Plan (12/24/2020 9:06 AM CDT): Continue Reclast thru Rheum Continue calcium, vitD and exercise Assessment & Plan (12/03/2020 10:45 AM CDT): Vitamin D level was 68. Received Reclast 07/09/2020. Last DEXA per available records was 01/31/2019, due this summer - order provided today, she will schedule at [facility] Assessment & Plan (09/03/2020 12:23 PM MICROECONOMICS PROFESSOR): Vitamin D level was 68. Received Reclast 07/09/2020. Last DEXA per available records was 01/31/2019, due this summer. Assessment & Plan (07/09/2020 12:23 PM MICROECONOMICS PROFESSOR): Overdue for Reclast, last infusion was 03/28/2019, will receive infusion today. Vitamin D level was 68 Last DEXA per available records was 01/31/2019 Assessment & Plan (06/04/2020 11:15 AM MICROECONOMICS PROFESSOR): Overdue for Reclast, last infusion was 03/28/2019, will check benefits. Recheck vitamin D level now. Last DEXA per available records was 01/31/2019 Assessment & Plan (02/18/2020 9:46 PM CDT): Calcium, vit D and exercise. Continue to monitor DXA Assessment & Plan (08/13/2019 8:58 AM MICROECONOMICS PROFESSOR): Continue with Calcium, Vit D and Exercise. [...] Krishnamurthy. Assessment & Plan (09/06/2023 9:41 AM MICROECONOMICS PROFESSOR): New diagnosis Dupree's esophagus made on 08/2023 EGD at [place] with Dr. Daniels Stressed importance of very close follow-up BMI 37.0-37.9, adult 09/06/2023 024 Assessment & Plan (10/13/2023 7:38 AM CDT): Discussed the patient's BMI. The BMI is above average. BMI management plan is completed. BMI Follow-up includes: nutrition counseling, exercise counseling and education provided. Assessment & Plan (09/06/2023 9:42 AM MICROECONOMICS PROFESSOR): Discussed the patient's BMI. The BMI is above average. BMI management plan is completed. BMI Follow-up includes: nutrition counseling, exercise counseling and education provided. Hyperglycemia 09/06/2023 09/06/2023 Positive depression screening 09/06/2023 09/06/2023 Annual physical exam 09/06/2023 024 Assessment & Plan (09/06/2023 9:43 AM MICROECONOMICS PROFESSOR): Encouraged healthy lifestyle, good nutrition and exercise. Encouraged Calcium and Vitamin D and weight bearing exercise for bone health. Reviewed immunizations Reviewed age appropirate screenings. Right knee pain 08/09/2023 09/06/2023 Sinus congestion 08/07/2023 09/06/2023 Assessment & Plan (08/07/2023 7:54 PM MICROECONOMICS PROFESSOR): Persistent sinusitis symptoms along with cough. Will start doxy b.i.d.. Start antihistamine (Claritin OR Zyrtec), Mucinex 12hour and Steroid nasal spray (Flonase). Push fluids. Rest. Supportive care. If sxs worsen or don\'t improve, pt is to followup in the office. Acute cough 08/07/2023 01/22/2024 Assessment & Plan (08/07/2023 7:55 PM MICROECONOMICS PROFESSOR): Persistent sinusitis symptoms along with cough. Will start doxy b.i.d.. Start antihistamine (Claritin OR Zyrtec), Mucinex 12hour and Steroid nasal spray (Flonase). Push fluids. Rest. Supportive care. If sxs worsen or don\'t improve, pt is to followup in the office. BMI 35.0-35.9,adult 08/03/2023 09/06/19 Assessment & Plan (08/07/2023 7:51 PM MICROECONOMICS PROFESSOR): Discussed the patient's BMI. The BMI is above average. BMI management plan is completed. BMI Follow-up includes: nutrition counseling, exercise counseling and education provided. Assessment & Plan (08/03/2023 8:29 AM MICROECONOMICS PROFESSOR): Discussed the patient's BMI. The BMI is [...] 01/22/2024 Assessment & Plan (06/02/2023 4:57 PM MICROECONOMICS PROFESSOR): Later in the day received critical lab call for a CO2 value at 42. My staff contacted the patient and she was instructed to go to the ER for further evaluation to determine underlying cause. She states throughout the day she has noticed a little bit more shortness of breath. She plans to have her brother drive her to [email or web address]. Charge nurse was notified of the arrival [...] surgery. Will defer cardiac clearance to her radiation officer. Her chronic medical conditions are stable. [facility] as instructed her to hold the [...] Dr. Ge Sexton on May 04 at [facility]. Need for vaccination for Strep pneumoniae [...] symptoms worsen or do not respond to [id number] allergy medicines within the next week she may call and will consider antibiotic. Left knee pain 09/13/2022 09/06/2023 BMI 39.0-39.9,adult 08/23/2022 11/09/19 Assessment & Plan (10/25/2022 3:32 PM CDT): Discussed the patient's BMI. The BMI is above average. BMI management plan is completed. BMI Follow-up includes: nutrition counseling, exercise counseling and education provided. Assessment & Plan (08/23/2022 2:19 PM MICROECONOMICS PROFESSOR): Discussed the patient's BMI. The BMI is [...] plans Assessment & Plan (07/18/2022 10:20 AM MICROECONOMICS PROFESSOR): CT revealed pelvic lipomatosis that is compressing [...] 12/20/2022 Assessment & Plan (07/18/2022 10:21 AM MICROECONOMICS PROFESSOR): CT revealed pelvic lipomatosis that is compressing [...] plan, Assessment & Plan (07/08/2022 12:33 PM MICROECONOMICS PROFESSOR): Patient has had dysuria. She was started [...] STAT abd/pelvis with and without contrast at [place]. Check labs STAT. Acute right flank pain 07/08/202204/06 Assessment & Plan (07/18/2022 10:21 AM MICROECONOMICS PROFESSOR): CT revealed pelvic lipomatosis that is compressing [...] plan, Assessment & Plan (07/08/2022 5:58 PM MICROECONOMICS PROFESSOR): Images from the original note were not [...] STAT abd/pelvis with and without contrast at [place]. Check labs STAT. STAT CT Abd/pelvis without [...] 09/06/2023 Assessment & Plan (07/08/2022 12:33 PM MICROECONOMICS PROFESSOR): Patient has had dysuria. She was started [...] STAT. Assessment & Plan (07/06/2022 8:50 AM MICROECONOMICS PROFESSOR): Pt presents with dysuria. Urine dip completed. [...] 35.00-39.99. Assessment & Plan (07/18/2022 10:23 AM MICROECONOMICS PROFESSOR): Discussed the patient's BMI. The BMI is above average. BMI management plan is completed. BMI Follow-up includes: nutrition counseling, exercise counseling and education provided. Assessment & Plan (07/08/2022 12:30 PM MICROECONOMICS PROFESSOR): Discussed the patient's BMI. The BMI is [...] She has received multiple injections from her rn new graduate regarding her knee but yesterday when she [...] 01/23/2022 Assessment & Plan (09/11/2021 11:28 PM MICROECONOMICS PROFESSOR): Patient has never had a full skin exam. She has quite a few lesions scattered and would benefit from a full exam. Will make referral Annual physical exam 09/11/2021 022 Assessment & Plan (09/11/2021 11:28 PM MICROECONOMICS PROFESSOR): Encouraged healthy lifestyle, good nutrition and exercise. Encouraged Calcium and Vitamin D and weight bearing exercise for bone health. Reviewed immunizations Reviewed age appropirate screenings. Cough 08/13/2021 01/23/2022 Assessment & Plan (08/13/2021 3:43 PM MICROECONOMICS PROFESSOR): Patient to presume positive COVID/FLU until results are available and plan to self isolate for up to 10 days from the onset of sxs. Check COVID/FLU test thru [facility] collection site in [place]. Let pt know the newest CDC recommendations [...] future. Assessment & Plan (07/13/2021 11:28 AM MICROECONOMICS PROFESSOR): I have ordered the patient Claritin 10 [...] provided. Assessment & Plan (09/11/2021 11:27 PM MICROECONOMICS PROFESSOR): Obesity is unchanged. Discussed the patient's BMI. The BMI is above average. BMI management plan is completed. BMI Follow-up includes: nutrition counseling, exercise counseling and education provided. Assessment & Plan (05/29/2021 8:24 PM MICROECONOMICS PROFESSOR): Obesity is unchanged. Discussed the patient's BMI. The BMI is above average. BMI management plan is completed. BMI Follow-up includes: nutrition counseling, exercise counseling and education provided. Assessment & Plan (05/12/2021 1:26 PM MICROECONOMICS PROFESSOR): Obesity is unchanged. Discussed the patient's BMI. The BMI is above average. BMI management plan is completed. BMI Follow-up includes: nutrition counseling, exercise counseling and education provided. BMI 37.0-37.9, adult 05/12/2021 022 Assessment & Plan (09/11/2021 11:27 PM MICROECONOMICS PROFESSOR): Obesity is unchanged. Discussed the patient's BMI. The BMI is above average. BMI management plan is completed. BMI Follow-up includes: nutrition counseling, exercise counseling and education provided. Assessment & Plan (05/29/2021 8:24 PM MICROECONOMICS PROFESSOR): Obesity is unchanged. Discussed the patient's BMI. The BMI is above average. BMI management plan is completed. BMI Follow-up includes: nutrition counseling, exercise counseling and education provided. Assessment & Plan (05/12/2021 1:26 PM MICROECONOMICS PROFESSOR): Obesity is unchanged. Discussed the patient's BMI. The BMI is above average. BMI management plan is completed. BMI Follow-up includes: nutrition counseling, exercise counseling and education provided. Tinea corporis 04/14/2021 01/23/2022 Assessment & Plan (05/31/2021 9:15 PM MICROECONOMICS PROFESSOR): Improving with Lotrisone. Keep the area clean and dry Assessment & Plan (05/29/2021 8:24 PM MICROECONOMICS PROFESSOR): Lotrisone to pharmacy. Encouraged her to keep the area clean and dry use her dryer to dry the skin before applying the cream. She is to call if symptoms worsen or do not resolve. Need for immunization against influenza 04/14/2021 05/31/2021 Assessment & Plan (05/29/2021 8:24 PM MICROECONOMICS PROFESSOR): Fluid updated in the office Medicare annual wellness visit, subsequent 04/13/2021 05/31/2021 Assessment & Plan (05/29/2021 8:23 PM MICROECONOMICS PROFESSOR): Encouraged healthy lifestyle, good nutrition and exercise. [...] 12/30/2020 Assessment & Plan (08/31/2020 9:31 AM MICROECONOMICS PROFESSOR): Error. This should be right calf but PT order sent and corrected so unable to remove. Fatigue 08/31/2020 09/06/2023 Assessment & Plan (04/06/2023 7:43 PM CDT): Probably multifactorial. Check labs and followup to re-evaluate Assessment & Plan (05/02/2022 9:16 PM CDT): Probably multifactorial. Check labs and followup to re-evaluate Assessment & Plan (08/31/2020 9:34 AM MICROECONOMICS PROFESSOR): Probably multifactorial. Check labs and followup to re-evaluate Pain in both lower extremities 08/31/2020 09/06/2023 Assessment & Plan (09/01/2023 3:41 PM MICROECONOMICS PROFESSOR): Cramping lower leg pain has resolved with [...] 021 Assessment & Plan (08/31/2020 9:33 AM MICROECONOMICS PROFESSOR): Obesity is unchanged. Discussed the patient's BMI. The BMI is above average. BMI management plan is completed. BMI Follow-up includes: nutrition counseling, exercise counseling and education provided. Pain of right calf 08/26/2020 Assessment & Plan (08/31/2020 9:31 AM MICROECONOMICS PROFESSOR): This is a significant, separately identifiable problem that was evaluated and managed on the same day as the wellness exam Unable to rule out DVT with her calf pain/sxs. Check STAT Venous doppler. Recvd Results and discussed with patient via phone. Negative for DVT. Recommend PT. Prefers [facility] Annual physical exam 08/24/2020 Assessment & Plan (08/31/2020 9:34 AM MICROECONOMICS PROFESSOR): Encouraged healthy lifestyle, good nutrition and exercise. Encouraged Calcium and Vitamin D and weight bearing exercise for bone health. Reviewed immunizations Reviewed age appropirate screenings. Dizziness 05/07/2020 09/06/2023 Assessment & Plan (05/14/2020 9:35 PM MICROECONOMICS PROFESSOR): Suspect the dizziness is inner ear related. [...] imaging. Assessment & Plan (05/07/2020 1:49 PM MICROECONOMICS PROFESSOR): Declines to report to er now 'I [...] 05/14/2020 Assessment & Plan (05/07/2020 1:49 PM MICROECONOMICS PROFESSOR): Declines to report to er now 'I [...] 12/30/2020 Assessment & Plan (05/07/2020 1:49 PM MICROECONOMICS PROFESSOR): Declines to report to er now 'I [...] provided Assessment & Plan (05/31/2021 9:15 PM MICROECONOMICS PROFESSOR): Mammogram order provided Assessment & Plan (02/18/2020 9:47 PM CDT): Mammogram order provided today Medicare annual wellness visit, subsequent 02/15/2020 02/15/2020 Precordial pain 09/04/2019 09/06/2023 Assessment & Plan (08/07/2023 7:50 PM MICROECONOMICS PROFESSOR): Workup in the hospital. Cardiology states her [...] inhaler. Assessment & Plan (07/13/2021 11:26 AM MICROECONOMICS PROFESSOR): The patient will continue with Dulera 2 [...] 9:04 AM CDT): Continue singulair, Dulera and xiang prn Assessment & Plan (02/18/2020 9:43 PM CDT): Continue per pulmonary. Pt feels like she is breathing well. Annual physical exam 08/13/2019 020 Assessment & Plan (08/13/2019 8:59 AM MICROECONOMICS PROFESSOR): Encouraged healthy lifestyle, good nutrition and exercise. Encouraged Calcium and Vitamin D and weight bearing exercise for bone health. Reviewed immunizations Reviewed age appropirate screenings. Obesity, morbid, BMI 40.0-49.9 08/13/2019 09/23/2020 Assessment & Plan (08/26/2020 7:10 AM MICROECONOMICS PROFESSOR): Obesity is unchanged. Discussed the patient's BMI. The BMI is above average. BMI management plan is completed. BMI Follow-up includes: nutrition counseling, exercise counseling and education provided. Assessment & Plan (05/14/2020 9:33 PM MICROECONOMICS PROFESSOR): Obesity is unchanged. Discussed the patient's BMI. [...] provided. Assessment & Plan (08/13/2019 8:58 AM MICROECONOMICS PROFESSOR): Obesity is unchanged. Discussed the patient's BMI. [...] change Assessment & Plan (08/13/2019 9:01 AM MICROECONOMICS PROFESSOR): This is a significant, separately identifiable problem [...] 01/22/2024 Assessment & Plan (09/06/2023 9:42 AM MICROECONOMICS PROFESSOR): Probably multifactorial. Check labs and followup to re-evaluate Assessment & Plan (09/03/2021 11:28 AM MICROECONOMICS PROFESSOR): She notes increased fatigue and lack of [...] re-evaluate Assessment & Plan (08/13/2019 9:08 AM MICROECONOMICS PROFESSOR): Probably multifactorial. Check labs and followup to re-evaluate Check labs prior to next visit BMI 40.0-44.9, adult 08/02/2019 020 Assessment & Plan (08/13/2019 8:57 AM MICROECONOMICS PROFESSOR): Obesity is unchanged. Discussed the patient's BMI. The BMI is above average. BMI management plan is completed. BMI Follow-up includes: nutrition counseling, exercise counseling and education provided. Assessment & Plan (08/02/2019 7:21 AM MICROECONOMICS PROFESSOR): Obesity is unchanged. Discussed the patient's BMI. The BMI is above average. BMI management plan is completed. BMI Follow-up includes: nutrition counseling, exercise counseling and education provided. Morbid obesity 08/02/2019 08/13/2019 Assessment & Plan (08/02/2019 7:20 AM MICROECONOMICS PROFESSOR): Obesity is unchanged. Discussed the patient's BMI. The BMI is above average. BMI management plan is completed. BMI Follow-up includes: nutrition counseling, exercise counseling and education provided. Acute non-recurrent maxillary sinusitis 08/02/2019 08/13/2019 Assessment & Plan (08/02/2019 7:47 AM MICROECONOMICS PROFESSOR): Start antibiotic, antihistamine, Mucinex and Steroid nasal [...] foot. She is being sent directly to [facility] and they were working her in [...] 21 Assessment & Plan (05/14/2020 9:33 PM MICROECONOMICS PROFESSOR): Completed Doxy and steroid. No s/s infection. [...] p.r.n. 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 She is on aspirin and statin Assessment & Plan (12/24/2020 9:03 AM CDT): Sxs stable. On ASA, statin and encouraged daily exercise. Assessment & Plan (02/18/2020 9:43 PM CDT): Continue per cardio. On ASA and statin Assessment & Plan (08/13/2019 8:45 AM MICROECONOMICS PROFESSOR): Continues with Dr. Alonso salmeron Assessment & Plan (11/01/2018 11:00 PM CDT): Pt sxs well controlled. 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 Continue per cardio Depression 07/16/2018 09/11/2021 Frontal sinusitis 06/26/2018 12/24/2020 Leukopenia 03/29/2018 12/30/2020 Other chronic pain 08/05/2017 3 Chronic seasonal allergic rh initis due to pollen 04/25/2017 12/30/2020 Assessment & Plan (12/24/2020 9:03 AM CDT): Continue current regimen with singulair and otc Assessment & Plan (02/18/2020 9:44 PM CDT): Continue with otc regimen Assessment & Plan (08/13/2019 8:46 AM MICROECONOMICS PROFESSOR): Continue current regimen Assessment & Plan (11/01/2018 [...] potassium Assessment & Plan (09/11/2021 11:26 PM MICROECONOMICS PROFESSOR): Bp is stable/in acceptable range for any co-morbidities. Encouraged to limit sodium intake and exercise for weight control. Currently stable without medication Assessment & Plan (05/29/2021 8:19 PM MICROECONOMICS PROFESSOR): Bp is stable/in acceptable range for any co-morbidities. Encouraged to limit sodium intake and exercise for weight control. Continue Lasix is helping with the swelling and addition. Blood pressure stable Assessment & Plan (05/24/2021 10:38 AM MICROECONOMICS PROFESSOR): Continue Lasix potassium Assessment & Plan (12/24/2020 9:05 AM CDT): Bp is stable/in acceptable range for any co-morbidities. Encouraged to limit sodium intake and exercise for weight control. Assessment & Plan (08/31/2020 9:32 AM MICROECONOMICS PROFESSOR): Bp is stable/in acceptable range for any co-morbidities. Encouraged to limit sodium intake and exercise for weight control. Stable with laxis currently Assessment & Plan (02/18/2020 9:44 PM CDT): Bp is stable/in acceptable range for any co-morbidities. Encouraged to limit sodium intake and exercise for weight control. Assessment & Plan (08/13/2019 8:57 AM MICROECONOMICS PROFESSOR): Bp is stable/in acceptable range for any [...] difficulty pulling them. Recommend finding some on [employer] that fit her calf that she can zip on and off. Showed them to her on [employer] and where to order them. She states she will try to get them. Assessment & Plan (05/31/2021 9:16 PM MICROECONOMICS PROFESSOR): Improving slowly. May have been due to the Relafen. She is on 60 of Lasix with potassium 10 mEq daily. Continue with current plan. Keep legs elevated. Utilize compressi to improve cleared. on hose. Call if symptoms worsen or do not continue to improve. Assessment & Plan (05/29/2021 8:23 PM MICROECONOMICS PROFESSOR): Persistent lower extremity edema that has improved [...] CMP. Assessment & Plan (05/24/2021 10:39 AM MICROECONOMICS PROFESSOR): Patient that her swelling was improving since discharge for over the last day or so it seems to be increasing. Will increase the Lasix to 40mg Start K 10meq daily Recheck labs in 5 days Assessment & Plan (08/31/2020 9:33 AM MICROECONOMICS PROFESSOR): Continue lasix Palpitations 12/08/2015 12/30/2020 Overview (10/09/2016): Palpitations Other abnormal glucose 11/11/201508/31 Asthma 10/14/2015 12/24/2020 Assessment & Plan (08/13/2019 8:49 AM MICROECONOMICS PROFESSOR): Continue with current regimen and with Pulmonary Assessment & Plan (11/01/2018 10:53 PM CDT): Currently Stable with regimen. Monitor closely with current allergy season. Followup Dr. Gomez as directed. Menopause 10/14/2015 12/30/2020 Cervical pain (neck) 10/14/2015 023 Immunizations Immunization Administration Dates Next Due COVID-19 mRNA (Last Size) 0.3 m L (30 mcg) vaccine (12 [...] drink = 0.6 oz pur e alcohol) [facility] Utilities Answer Date Recorded In the past 12 months has e [employer], gas, oil, or water company threatened to [...] often do you attend chur ch or rastafarian services? 1 to 4 times per year 05/30/2024 Do you belong to any clubs o r organizations such as worship groups, unions, fraternal or athletic groups, or [...] money to buy more. Never true 05/30/20 Within the past 12 months, t he [...] place to sleep or slept in a jail (including now)? No 05/27/2023 PHQ-9 Answer Date [...] any time in the past [address] [facility], were you homeless or living in a jail (including now)? No 05/30/2024 Personal Safety Answer Date Recorded Have you ever been in or are you currently in a harmful physical or emotional relationship or is someone making you feel afraid or unsafe? Denies 05/30/2024 Comments No Sex and Gender Information Value Date Recorded Sex Assigned at Not on file Legal Sex Female 8:04 PM MICROECONOMICS PROFESSOR Gender Identity Female 02/15/2020 6:08 PM CDT Sexual Orientation Not on file Last Filed Vital Signs Vital Sign Reading Time Taken Comments Blood Pressure 110/52 09/25/2024 10:54 AM CDT Pulse 97 09/25/2024 10:54 AM CDT Temperature 36.7 C (98.1 F) 09/25/2024 10:54 AM CDT Respiratory Rate 24 09/25/2024 10:54 AM CDT Oxygen Saturation 96% 09/25/2024 10:54 AM CDT Inhaled Oxygen Concentration - - Weight 86.2 kg (190 lb) 09/25/2024 10:54 AM CDT Height 154.9 cm (5' 1 ) 09/20/2024 7:45 AM CDT Body Mass Index 35.9 09/20/2024 7:45 AM CDT Plan of Treatment Not on file Medical Devices Implanted Type Area Calibrator Barometers Device Identifier Shelf Expiration Date Model / Serial / Lot [employer] Simplex P Radiopaque Full Dose Cement Bone Sterile 6191-1-010 - [id number] Implanted:Qty: 2 on 05/04/2023 by Michael Motta MD at [facility] Bone Cement Left: Knee [employer] 05/03/2025 6191-1-010 / [id number] / [id number] [employer] Simplex P Radiopaque Full Dose Cement Bone Sterile 6191-1-010 - [id number] Implanted:Qty: 2 on 05/30/2024 by Michael Motta MD at [facility] Bone Cement Right: Patella [employer] [id number] 05/03/2026 6191- / / [id number] [employer] Persona 14mm 30+ Mm Knee Tibia Taper Extension Stem [id number] - [id number] 4 - [id number] Implanted:Qty: 1 on 05/04/2023 by Michael Motta MD at [facility] Left: Knee [employer] [id number] 02/15/2033 [id number] / [id number] 14 / [id number] [employer] Persona Cemented Cruciate Retaining Knee Left 7 Narrow Component [id number] - [id number] 1 - [id number] Implanted:Qty: 1 on 05/04/2023 by Michael Mtota MD at [facility] Left: Knee [employer] [id number] 10/25/2032 [id number] / [id number] 01 / [id number] [employer] Baseplate Tibial Knee Cemented Left Fixed Stemmed Persona Size D Tivanium [id number] - [id number] 1 - [id number] Implanted:Qty: 1 on 05/04/2023 by Michael Motta MD at [facility] Left: Knee [employer] [id number] 09/11/2032 [id number] / 30-7178-906- 01 / [id number] [employer] Persona 11mm Knee Left 6-7 C-D Insert Articular Vivacit-E Sterile [id number] - [id number] 1 - [id number] Implanted:Qty: 1 on 05/04/2023 by Michael Motta MD at [facility] Left: Knee [employer] [id number] 12/28/2025 [id number] / 07-9366-147- 11 / [id number] [employer] Persona 32mm Knee Component Patellar All Poly Latex Free 48-7404-774-32 - [id number] Implanted:Qty: 1 on 05/04/2023 by Michael Motta MD at [facility] [employer] 12/19/2027 [id number] / / [id number] [employer] Baseplate Tibial Knee Cemented Right Fixed Stemmed Persona Size C Tivanium [id number] - [id number] Implanted:Qty: 1 on 05/30/2024 by Michael Motta MD at [facility] Right: Knee [employer] [id number] 03/22/2033 [id number] / / [id number] [employer] Persona 29mm Knee Component Patellar All Poly Latex Free [id number] - [id number] Implanted:Qty: 1 on 05/30/2024 by Michael Motta MD at [facility] Right: Knee [employer] [id number] 12/18/2028 [id number] / / [id number] [employer] Persona 13mm Cruciate Retain Knee Right 6-7 Cd Insert Articular Latex Free [id number] - [id number] Implanted:Qty: 1 on 05/30/2024 by Michael Motta MD at [facility] Right: Patella [employer] [id number] 05/04/2025 [id number] / / [id number] [employer] Persona Cruciate Retaining Cemented Knee Right 7 Narrow Component [id number] - [id number] Implanted:Qty: 1 on 05/30/2024 by Michael Motta MD at [facility] Right: Knee [employer] [id number] 12/27/2033 [id number] / / [id number] [employer] Persona 14mm 30+ Mm Knee Tibia Taper Extension Stem [id number] - [id number] Implanted:Qty: 1 on 05/30/2024 by Michael Motta MD at [facility] Right: Knee [employer] [id number] 04/11/2034 [id number] / / [id number] Procedures Procedure Name Priority Date/Time Associated Diagnosis Comments POC INFLUENZA A/B, COVID-19 ANTIGEN Routine 09/25/2024 11:02 AM CDT Influenza A Acute cough XR KNEE RIGHT 3 VIEWS Schedule Routine, Read Routine (OP Routine) 09/13/2024 1:48 PM CDT Chronic pain of right knee CT ABDOMEN PELVIS W CONTRAST Schedule Routine, Read Routine (OP Routine) 08/29/2024 12:23 PM MICROECONOMICS PROFESSOR COMPREHENSIVE METABOLIC PANEL Routine 08/23/2024 2:11 PM MICROECONOMICS PROFESSOR Encounter for medication monitoring CBC WITH AUTO DIFFERENTIAL Routine 08/23/2024 2:11 PM MICROECONOMICS PROFESSOR Encounter for medication monitoring SCAN - LABS 08/23/2024 VITAMIN B12 Routine 08/02/2024 7:41 AM MICROECONOMICS PROFESSOR Fatigue, unspecified type LIPID PANEL Routine 08/02/2024 7:41 AM MICROECONOMICS PROFESSOR Mixed hyperlipidemia HEMOGLOBIN A1C Routine 08/02/2024 7:41 AM MICROECONOMICS PROFESSOR Pre-diabetes COMPREHENSIVE METABOLIC PANEL Routine 08/02/2024 7:41 AM MICROECONOMICS PROFESSOR Mixed hyperlipidemia CBC WITH AUTO DIFFERENTIAL Routine 08/02/2024 7:41 AM MICROECONOMICS PROFESSOR Fatigue, unspecified type TSH Routine 08/02/2024 7:41 AM MICROECONOMICS PROFESSOR Fatigue, unspecified type ERYTHROCYTE SEDIMENTATION RATE Routine 07/30/2024 2:36 PM MICROECONOMICS PROFESSOR 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) CRP (ACUTE PHASE) Routine 07/30/2024 2:3 6 PM MICROECONOMICS PROFESSOR 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) COMPREHENSIVE METABOLIC PANEL Routine 07/30/2024 2:36 PM MICROECONOMICS PROFESSOR Encounter for medication monitoring CBC WITH AUTO DIFFERENTIAL Routine 07/30/2024 2:36 PM MICROECONOMICS PROFESSOR Encounter for medication monitoring XR KNEE RIGHT 3 VIEWS Schedule Routine, Read Routine (OP Routine) 07/24/2024 1:35 PM MICROECONOMICS PROFESSOR Status post total knee replacement using cement, right SCREENING MAMMOGRAM BILATERAL W DYLLAN Schedule Routine, Read Routine (OP Routine) 08/02/2023 7:33 AM MICROECONOMICS PROFESSOR Breast cancer screening by mammogram DEXA AXIAL SKELETON BONE DENSITY 1 OR MORE SITES Schedule Routine, Read Routine (OP Routine) 04/12/2023 8:14 AM CDT COLONOSCOPY Routine 07/27/2021 HEPATITIS C ANTIBODY Routine 06/04/2020 10:29 AM MICROECONOMICS PROFESSOR Encounter for screening for other viral diseases Chronic fatigue from Last 3 Months or Most Recently Relevant to Health Maintenance Results * (ABNORMAL) POC Influenza A/B, COVID-19 antigen (09/25/2024 11:02 AM CDT) Influenza A Ag, POC Positive(A) Negative [facility] Influenza B Ag, POC Negative Negative [facility] COVID-19 Ag POC Presumptive Negative Presumptive Negative, Invalid [facility] Nasal 09/25/2024 11:0 2 AM CDT Jessica Collins NP POINT OF CARE TEST ORDERABLES Final Result [facility] [address] * XR Knee Right 3 Views (09/13/2024 1:48 PM CDT) Anatomical Region Laterality Modality Lower Extremities, Knee Right Computed Radiography 09/18/2024 10:0 9 AM CDT Narrative 09/18/2024 10:14 AM CDT EXAM DESCRIPTION: XR KNEE RIGHT 3 VIEWS REASON FOR STUDY: RIGHT KNEE PAIN General knee pain and stiffness since total knee replacement 05-30-24 TECHNIQUE: 3 radiographic view(s) of the right knee . COMPARISON: July 24, 2024 FINDINGS: BONES/JOINTS: Mild to moderate lateral tilting of the patella. Right total knee prosthesis is unchanged with no radiographic evidence of loosening. No acute fractures. Left total knee prosthesis also appears unchanged. SOFT TISSUES: Within normal limits. IMPRESSION: Mild to moderate lateral tilting of the patella. Right total knee prosthesis is unchanged with no radiographic evidence of loosening. Left total knee prosthesis also appears unchanged. THIS IS AN ELECTRONICALLY VERIFIED FINAL REPORT 09/18/2024 10:14 AM - Electronically signed by John Sparrow M.D. RB T: Report ID: [id number] Reading Location: [id number] Procedure Note John Sparrow MD - 09/18/2024 EXAM DESCRIPTION: XR KNEE RIGHT 3 VIEWS REASON FOR STUDY: RIGHT KNEE PAIN General knee pain and stiffness since total knee replacement 05-30-24 TECHNIQUE: 3 radiographic view(s) of the right knee . COMPARISON: July 24, 2024 FINDINGS: BONES/JOINTS: Mild to moderate lateral tilting of the patella. Right total knee prosthesis is unchanged with no radiographic evidence of loosening. No acute fractures. Left total knee prosthesis also appears unchanged. SOFT TISSUES: Within normal limits. IMPRESSION: Mild to moderate lateral tilting of the patella. Right total knee prosthesis is unchanged with no radiographic evidence of loosening. Left total knee prosthesis also appears unchanged. THIS IS AN ELECTRONICALLY VERIFIED FINAL REPORT 09/18/2024 10:14 AM - Electronically signed by John Sparrow M.D. RB T: Report ID: [id number] Reading Location: [id number] Michael Motta MD IMG XR PROCEDURES Final Re sult * (ABNORMAL) CT Abdomen Pelvis W Contrast (08/29/2024 12:23 PM MICROECONOMICS PROFESSOR) Anatomical Region Laterality Modality Body N/A Computed Tomogra phy us Historical Provider MD LUN[facility] CT PROCEDURES Edited Result - Final * CBC with auto differential (08/23/2024 2:11 PM MICROECONOMICS PROFESSOR) WBC 4.8 3.8 - 10.8 Thousand/u L [...] [facility] Blood 08/23/2024 2:11 PM MICROECONOMICS PROFESSOR 08/23/2024 2:11 PM MICROECONOMICS PROFESSOR Sangita OSMAN LAB BLOOD ORDERABLES Vy suazo Result [facility] [address] [phone] * (ABNORMAL) Comprehensive metabolic panel (08/23/2024 2:11 PM MICROECONOMICS PROFESSOR) Pathologist [facility] Glucose 188(H) 65 - 99 mg/dL [facility] [...] [facility] Blood 08/23/2024 2:11 PM MICROECONOMICS PROFESSOR 08/23/2024 2:11 PM MICROECONOMICS PROFESSOR us Sangita OSMAN LAB BLOOD ORDERABLES Vy l Result [facility] [address] [address] [phone] * SCAN - LABS (08/23/2024) Alee OSMAN Final Resu lt * (ABNORMAL) CBC with auto differential (08/02/2024 7:41 AM MICROECONOMICS PROFESSOR) Pathologist [facility] WBC 4.0 3.8 - 10.8 Thousand/u L [...] [facility] Blood 08/02/2024 7:41 AM MICROECONOMICS PROFESSOR 08/02/2024 7:42 AM MICROECONOMICS PROFESSOR Alee OSMAN LAB BLOOD ORDERABLES Final Result Performing Organization Address [facility] [address]/ZIP Co de Phone Number [facility] [address] [place] [address] * TSH (08/02/2024 7:41 AM MICROECONOMICS PROFESSOR) TSH 1.57 0.40 - 4.50 mIU/L [facility] Blood 08/02/2024 7:41 AM MICROECONOMICS PROFESSOR 08/02/2024 7:42 AM MICROECONOMICS PROFESSOR Alee OSMAN LAB BLOOD ORDERABLES Final Result Performing Organization Address [facility] [address]/[facility] de Phone Number [facility] [address] [place] [address] * Hemoglobin A1c (08/02/2024 7:41 AM MICROECONOMICS PROFESSOR) Hgb A1C 5.4 <5.7 % of total Hgb [facility] Comment: For the purpose of screening for the presence of diabetes: <5.7% Consistent with the absence of diabetes 5.7-6.4% Consistent with increased risk for diabetes (prediabetes) > or =6.5% Consistent with diabetes This assay result is consistent with a decreased risk of diabetes. Currently, no consensus exists regarding use of hemoglobin A1c for diagnosis of diabetes in children. According to Canadian Diabetes Association (ADA) guidelines, hemoglobin A1c <7.0% represents optimal control in non- diabetic patients. Different metrics may apply to specific patient populations. Standards of Medical Care in Diabetes(ADA). Blood 08/02/2024 7:41 AM MICROECONOMICS PROFESSOR 08/02/2024 7:42 AM MICROECONOMICS PROFESSOR Alee OSMAN LAB BLOOD ORDERABLES Final Result Performing Organization Address City/[facility] [address]/ZIP Co de Phone Number [facility] [address] [place] [address] * Vitamin B12 (08/02/2024 7:41 AM MICROECONOMICS PROFESSOR) Vitamin B12 349 200 - 1,100 pg/mL [...] will have symptoms. Blood 08/02/2024 7:41 AM MICROECONOMICS PROFESSOR 08/02/2024 7:42 AM MICROECONOMICS PROFESSOR Alee OSMAN LAB BLOOD ORDERABLES Final Result Performing Organization Address [facility] [address]/[facility] Co de Phone Number [facility] [address] [place] [address] * Lipid panel (08/02/2024 7:41 AM MICROECONOMICS PROFESSOR) Cholesterol 127 <200 mg/dL [facility] [...] equation in the estimation of LDL-C. Barry SS et al. ELAINE. 2013;310(19): 5684-8415 (http://education.[employer]/faq/BFZ471) Chol/HDL ratio 1.7 <5.0 (calc) [facility] Non-HDL, (LDL+VLDL) 52 <130 mg/dL (calc) [facility] Comment: For patients with diabetes plus 1 major ASCVD risk factor, treating to a non-HDL-C goal of <100 mg/dL (LDL-C of <70 mg/dL) is considered a therapeutic option. Blood 08/02/2024 7:41 AM MICROECONOMICS PROFESSOR 08/02/2024 7:42 AM MICROECONOMICS PROFESSOR Alee OSMAN LAB BLOOD ORDERABLES Final Result [facility] [address] [place] [address] * Comprehensive metabolic panel (08/02/2024 7:41 AM MICROECONOMICS PROFESSOR) Pathologist [facility] Glucose 99 65 - 99 mg/dL [facility] [...] [facility] Blood 08/02/2024 7:41 AM MICROECONOMICS PROFESSOR 08/02/2024 7:42 AM MICROECONOMICS PROFESSOR us Alee OSMAN LAB BLOOD ORDERABLES Final Result [facility] [address] [place] [address] * CBC with auto differential (07/30/2024 2:36 PM MICROECONOMICS PROFESSOR) WBC 6.4 3.8 - 10.8 Thousand/u L [...] 0.5 % [facility] Blood 07/30/2024 2:3 6 PM MICROECONOMICS PROFESSOR 07/30/2024 2:36 PM MICROECONOMICS PROFESSOR [facility] LAB BLOOD ORDERABLES Vy l Result Performing Organization Address [facility] [address]/[facility] de Phone Number [facility] [address] [place] [address] * Erythrocyte sedimentation rate (07/30/2024 2:36 PM MICROECONOMICS PROFESSOR) Erythrocyte sedimentation rate 11 < OR = 30 mm/h [facility] Blood 07/30/2024 2:36 PM MICROECONOMICS PROFESSOR 07/30/2024 2:36 PM MICROECONOMICS PROFESSOR Result [facility] Magali Farrar ID LAB BLOOD ORDERABLES Vy l Result Performing Organization Address [facility] [address] [facility] de Phone Number [facility] [address] [place] [address] * CRP (acute phase) (07/30/2024 2:36 PM MICROECONOMICS PROFESSOR) C-RP <3.0 <8.0 mg/L [facility] Blood 07/30/2024 2:36 PM MICROECONOMICS PROFESSOR 07/30/2024 2:36 PM MICROECONOMICS PROFESSOR Sangita OSMAN LAB BLOOD ORDERABLES Vy suazo Result [facility] [address] [address] [phone] * (ABNORMAL) Comprehensive metabolic panel (07/30/2024 2:36 PM MICROECONOMICS PROFESSOR) Glucose 115(H) 65 - 99 mg/dL [facility] [...] [facility] Blood 07/30/2024 2:36 PM MICROECONOMICS PROFESSOR 07/30/2024 2:36 PM MICROECONOMICS PROFESSOR us Sangita OSMAN LAB BLOOD ORDERABLES Vy suazo Result [facility] [address] [address] [address] * XR Knee Right 3 Views (07/24/2024 1:35 PM MICROECONOMICS PROFESSOR) Anatomical Region Laterality Modality Lower Extremities, Knee Right Computed Radiography 07/25/2024 7:16 AM MICROECONOMICS PROFESSOR Narrative 07/25/2024 7:18 AM MICROECONOMICS PROFESSOR EXAM DESCRIPTION: XR KNEE RIGHT 3 VIEWS [...] signed by Elton CABA T: Report ID: [id number] Reading Location: [place] [address] Procedure Note Elton Jonas MD - 07/25/2024 [...] signed by Elton CABA T: Report ID: [id number] Reading Location: [id number] Michael Motta MD IMG XR PROCEDURES Final Re sult * Screening Mammogram Bilateral W Dyllan (08/02/2023 7:33 AM MICROECONOMICS PROFESSOR) Anatomical Region Laterality Modality Breast Bilateral Mammography Alee OSMAN IMG MAMMO PROCEDURES Edite d Result - Final * (ABNORMAL) Dexa Axial Skeleton Bone Density 1 or 2 Site (04/12/2023 8:14 AM CDT) Anatomical Region Laterality Modality Body N/A Radiographic Melanie ging Historical Provider IMG DXA PROCEDURES Edited Result - Final * Colonoscopy (07/27/2021) Anatomical Region Laterality Modality Other Historical Provider ENDOSCOPY PROCEDURES Vy l Result * Hepatitis C antibody (06/04/2020 10:29 AM MICROECONOMICS PROFESSOR) Hep C Ab NON-REACTI VE NON-REACT ALEXYS [facility] SIGNAL TO CUT-OFF 0.02 <1.00 [facility] Comment: HCV antibody was non-reactive. There is no laboratory evidence of HCV infection. In most cases, no further action is required. However, if recent HCV exposure is suspected, a test for HCV RNA (test code 05758) is suggested. For additional information please refer to http://education.[employer]/faq/FXC35i6 (This link is being provided for informational/ educational purposes only.) Blood specimen (specimen) 06/04/2020 10:29 AM MICROECONOMICS PROFESSOR 06/04/2020 10:30 AM MICROECONOMICS PROFESSOR Sangita OSMAN LAB MICROBIOLOGY - GENERA L ORDERABLES Final Result [facility] [address] [place] [address] from Last 3 Months or Most Recently Relevant to Health Maintenance Insurance [facility] MEDICARE ADVANTAGE Advance Directives For more information, please contact: [phone] Documents on File Type Date Recorded Patient Medical Office Professional Instructor Expl anation ADVANCE DIRECTIVE 05/17/2024 2:13 PM Yonis r of [employer] * Full Code (Latest Code Status on File) Date Activated Date Inactivated Comments 05/30/2024 12:38 PM 06/05/2024 6:31 PM * Full Code Date Activated Date Inactivated Comments 05/04/2023 2:33 PM 05/07/2023 3:07 AM * Full Code Date Activated Date Inactivated Comments 03/22/2021 4:39 PM 03/25/2021 6:17 PM Care Teams Instrument Lens Grinder Apprentice Relationship Specialty Start Date End Date Alee Elizondo PA [address] [facility] [address] [place] [address] PCP - General Internal Medicine 07/05/23 Sharan Linton MD Referring Physician Gastroenterology 10/31/18 Martha Starks MD Consulting Physician Cardiology 12/24/20 Shama Hines MD [address] [facility], [facility] [address] [place] [address] Consulting Physician Pain Management 01/19/21 Artis Grewal MD [address] [place] [address] Consulting Physician Rheumatology 01/30/21 Amy Mayes NP [address] [facility] [address] [place] [address] Nurse Practitioner Cardiovascular Disease 04/20/24 Shailesh Dunn MD [address] [facility] [address] [address] Consulting Physician Pulmonary Disease 04/20/24 Sangita Farrar PA [address] [place] [address] Physician Product Support Representative Rheumatology 05/15/24
--- OUTSIDE RECORDS SUMMARY | 2024-10-02 10:56 | XMS_ITS | Encounter Summary ---
Author Organization [facility] Facility Care Team Providers Care Millinery Teacher Name Role Phone Alee Elizondo Primary Care Provider + [phone] Sharan Linton MD Unavailable [phone] Taisha Gomez MD Unavailable [phone] Parag Soto MD Unavailable [phone] RaziaMartha singh MD Unavailable +[phone] Puneet Uribe MD Unavailable +[phone] Shama Hines MD Unavailable Artis Grewal MD Unavailable [phone] Harrison Pena RN Unavailable +[phone] Nafisa Gregg RN Unavailable +[phone] Tho Kelsey MD Primary Care Provider [phone] Alee Elizondo Primary Care Provider + [phone] Amy Mayes NP Unavailable +[phone] Shailesh Dunn MD Unavailable [phone] Sangita Farrar Unavailable +[phone] Encounter Details Date Type Department Care Team (Latest Contact Info) Description 03/24/2016 Orders Only [facility] CLINCONV Provider, MD Tania [address] [place] [address] Social History Tobacco Use Types Packs/Day Years Used Date Smoking Tobacco: Never Alcohol Use Standard Drinks/Week Comments No 0 (1 standard drink = 0.6 oz pur e alcohol) Comments Unknown Sex and Gender Information Value Date Recorded Sex Assigned at Not on file 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 Gender Identity Female 02/15/2020 6:08 PM [...] COVID: Suspected 08/13/2021 08/14/2021 08/14/2021 3:06 AM BUNCHER OPERATOR COVID: Suspected 08/14/2021 08/14/2021 08/15/2021 3:05 AM BUNCHER OPERATOR COVID: Suspected 08/14/2021 08/14/2021 08/15/2021 6:25 AM BUNCHER OPERATOR COVID: Suspected 06/02/2023 06/02/2023 06/02/2023 7:25 PM BUNCHER OPERATOR COVID: Suspected 07/26/2023 07/26/2023 07/26/2023 3:10 PM BUNCHER OPERATOR COVID: Suspected 09/25/2024 09/25/2024 09/25/2024 11:03 AM CDT Influenza, adult 09/25/2024 09/25/2024 10/02/2024 3:05 AM CDT documented as of this encounter Care Teams Millinery Teacher Relationship Specialty Start Date End Date Alee Elizondo PA 10[address] [facility] 500 [place] [address] PCP - General Internal Medicine 02/01/17 06/29/23 Tho Kelsey MD [address] [facility] [address] [facility] [address] [place] [address] PCP - General Family Medicine 06/30/23 07/04/23 Alee Elizondo PA [address] [place] [address] [place] [address] PCP - General Internal Medicine 07/05/23 Sharan Linton MD [address] [place] [address] [place] [address] Referring Physician Gastroenterology 10/31/18 Taisha Gomez MD [address] [facility] [address] [place] [address] [place] [address] Referring Physician Pulmonary Disease 10/31/18 12/23/20 Parag Soto MD [address] [place] [address] [place] [address] Referring Physician Rheumatology 10/31/18 12/23/20 Martha Starks MD [address] [place] [address] [place] [address] Consulting Physician Cardiology 12/24/20 Puneet Uribe MD [address] [facility] [address] [place] [address] Consulting Physician Rheumatology 12/24/20 01/29/21 Shama Hines MD [address] [facility], [facility] [address] [place] [address] Consulting Physician Pain Management 01/19/21 Artis Grewal MD [address] [place] [address] Consulting Physician Rheumatology 01/30/21 Harrison Pena, JULIUS [address] [place] [address] Bilingual Nanny 05/30/23 09/04/23 Nafisa Gregg, JULIUS [address] [place] [address] [facility] [address] [place] [address] Bilingual Nanny 06/06/23 06/12/23 Amy Mayes NP [address] [facility] [address] [place] [address] Nurse Practitioner Cardiovascular Disease 04/20/24 Shailesh Dunn MD 4600 [facility] [address] [place] [address] Consulting Physician Pulmonary Disease 04/20/24 Sangita Farrar PA [address] [place] [address] Physician Convex Grinder Rheumatology 05/15/24 documented as of this encounter
--- OUTSIDE RECORDS SUMMARY | 2024-10-02 10:56 | XMS_ITS | Encounter Summary ---
Author Organization [facility] Facility Care Team Providers Care Store Receiver Name Role Phone Alee Elizondo Primary Care Provider + [phone] Sharan Linton MD Unavailable [phone] Taisha Gomez MD Unavailable [phone] Parag Soto MD Unavailable [phone] RaziaMartha singh MD Unavailable [phone] Puneet Uribe MD Unavailable +[phone] Shama Hines MD Unavailable Artis Grewal MD Unavailable [phone] Harrison Pena RN Unavailable +[phone] aNfisa Gregg RN Unavailable +[phone] Tho Kelsey MD Primary Care Provider [phone] Alee Elizondo Primary Care Provider + [phone] Amy Mayes NP Unavailable +[phone] Shailesh Dunn MD Unavailable [phone] Sangita Farrar Unavailable [phone] Encounter Details Date Type Department Care Team (Latest Contact Info) Description 12/31/2015 Orders Only [facility] CLINCONV Provider, MD Tania [address] [place] [address] Social History Tobacco Use Types Packs/Day Years Used Date Smoking Tobacco: Never Alcohol Use Standard Drinks/Week Comments No 0 (1 standard drink = 0.6 oz pur e alcohol) Comments Unknown Sex and Gender Information Value Date Recorded Sex Assigned at Not on file 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 Gender Identity Female 02/15/2020 6:08 PM [...] COVID: Suspected 08/13/2021 08/14/2021 08/14/2021 3:06 AM REAL ESTATE MANAGER COVID: Suspected 08/14/2021 08/14/2021 08/15/2021 3:05 AM REAL ESTATE MANAGER COVID: Suspected 08/14/2021 08/14/2021 08/15/2021 6:25 AM REAL ESTATE MANAGER COVID: Suspected 06/02/2023 06/02/2023 06/02/2023 7:25 PM REAL ESTATE MANAGER COVID: Suspected 07/26/2023 07/26/2023 07/26/2023 3:10 PM REAL ESTATE MANAGER COVID: Suspected 09/25/2024 09/25/2024 09/25/2024 11:03 AM CDT Influenza, adult 09/25/2024 09/25/2024 10/02/2024 3:05 AM CDT documented as of this encounter Care Teams Store Receiver Relationship Specialty Start Date End Date Alee Elizondo PA [address] [place] [address] PCP - General Internal Medicine 8/1/17 12/27/23 Tho Kelsey MD [address] [facility] [address] [facility] 400 [place] [address] PCP - General Family Medicine 06/30/23 07/04/23 Alee Elizondo PA [address] [place] [address] [place] [address] PCP - General Internal Medicine 07/05/23 Sharan Linton MD [address] [place] [address] [place] [address] Referring Physician Gastroenterology 10/31/18 Taisha Gomez MD [address] [place] [address] [place], [place] [id number] Referring Physician Pulmonary Disease 10/31/18 12/23/20 Parag Soto MD [address] [place] [address] [place], [place] [id number] Referring Physician Rheumatology 10/31/18 12/23/20 Martha Starks MD [address] [place] [address] [place] [address] Consulting Physician Cardiology 12/24/20 Puneet Uribe MD [address] [facility] [address] [place] [address] Consulting Physician Rheumatology 12/24/20 01/29/21 Shama iHnes MD 4700 [facility], [facility] 230 [place] [address] Consulting Physician Pain Management 01/19/21 Artis Grewal MD [address] [place] [address] Consulting Physician Rheumatology 01/30/21 Harrison Pena, JULIUS [address] [place] [address] Edge Stainer Machine 05/30/23 09/04/23 Nafisa Gregg, JULIUS [address] [place] [address] [address] [place] [address] Edge Stainer Machine 06/06/23 06/12/23 Amy Mayes NP [address] [address] Nurse Practitioner Cardiovascular Disease 04/20/24 Shailesh Dunn MD 4600 [facility] [address] [address] Consulting Physician Pulmonary Disease 04/20/24 Sangita Farrar PA [address] [place] [address] Physician Electronic Drafter Rheumatology 05/15/24 documented as of this encounter
--- OUTSIDE RECORDS SUMMARY | 2024-10-02 10:56 | XMS_ITS | Encounter Summary ---
Author Organization [facility] Healthcare Address [address] [place] [address] Care Team Providers Care Construction Analyst Name Role Phone Sharan Linton MD Unavailable [phone] Martha Starks MD Unavailable [phone] Shama Hines MD Unavailable Artis Grewal MD Unavailable [phone] Alee Elizondo Primary Care Provider [phone] Amy Mayes NP Unavailable [phone] Shailesh Dunn MD Unavailable [phone] Sangita Farrar Unavailable [phone] Encounter Details Date Type Department Care Team (Late st Contact Info) Description 10/11/2023 Orders Only [facility] [address] [place] [address] Scanning, Provider Social History Tobacco Use Types Packs/Day Years Used Date Smoking Tobacco: Never Smokeless Tobacco: Never Comments:Never used Alcohol Use Standard Drinks/Week Comments No 0 (1 standard drink = 0.6 oz pur e alcohol) [facility] Utilities Answer Date Recorded In the past [...] any clubs o r organizations such as jainism groups, unions, fraternal or athletic groups, or [...] in a intermediate (including now)? 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, [facility] [address] [place] [address] Consulting Physician Pain Management 01/19/21 Artis Grewal MD [address] [place] [address] Consulting Physician Rheumatology 01/30/21 Amy Mayes NP [address] [address] Nurse Practitioner Cardiovascular Disease 04/20/24 Shailesh Dunn MD 4600 [facility] [address] [address] Consulting Physician Pulmonary Disease 04/20/24 Sangita Farrar PA [address] [place] [address] Physician Sanitation Associate Rheumatology 05/15/24 documented as of this encounter
--- OUTSIDE RECORDS SUMMARY | 2024-10-02 10:56 | XMS_ITS | Clinical Summary ---
Author Organization [facility] [address] Address [address] [place] [address] Care Team Providers Care Pe Teacher Name Role Phone Sharan Linton MD Unavailable [phone] Martha Starks MD Unavailable [phone] Shama Hines MD Unavailable Artis Grewal MD Unavailable [phone] Alee Elizondo Primary Care Provider [phone] Amy Mayes NP Unavailable [phone] Shailesh Dunn MD Unavailable [phone] Sangita Farrar Unavailable Allergies Active Allergy Reactions [...] total) by mouth daily 180 tablet 1 Active hydroxychloroquin e (PLAQUENIL) 200 mg tabletIndications :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) Take 1 tablet (200 mg total) by mouth 2 (two) times a day 180 tablet 1 Active methotrexate 2.5 mg tabletIndications :Rheumatoid Arthritis,autoimm [...] 05/07/20 Assessment & Plan (05/07/2024 8:57 PM TREATING ENGINEER HELPER): I have examined this patient and ordered [...] She has had evaluation by Urology at [facility] and has been told [...] 08/03/2023 Assessment & Plan (05/07/2024 8:56 PM TREATING ENGINEER HELPER): Discussed the patient's BMI. The BMI is [...] provided. Assessment & Plan (09/06/2023 9:38 AM TREATING ENGINEER HELPER): Discussed the patient's BMI. The BMI is above average. BMI management plan is completed. BMI Follow-up includes: nutrition counseling, exercise counseling and education provided. Patient has an obesity-related condition (not limited to: hypertension, obstructive sleep apnea, osteoarthritis, hyperlipidemia, diabetes, etc.). Therefore, morbid obesity may be documented for patients with a BMI between 35.00-39.99. Assessment & Plan (08/07/2023 7:51 PM TREATING ENGINEER HELPER): Discussed the patient's BMI. The BMI is above average. BMI management plan is completed. BMI Follow-up includes: nutrition counseling, exercise counseling and education provided. Patient has an obesity-related condition (not limited to: hypertension, obstructive sleep apnea, osteoarthritis, hyperlipidemia, diabetes, etc.). Therefore, morbid obesity may be documented for patients with a BMI between 35.00-39.99. Assessment & Plan (08/03/2023 7:45 AM TREATING ENGINEER HELPER): Discussed the patient's BMI. The BMI is above average. BMI management plan is completed. BMI Follow-up includes: nutrition counseling, exercise counseling and education provided. Primary osteoarthritis of right knee 07/08/2023 Assessment & Plan (05/07/2024 8:56 PM TREATING ENGINEER HELPER): Patient has arthritis in the right knee. Planning a total knee replacement with Dr. Alexus Motta on May 30 Assessment & Plan (08/03/2023 8:28 AM TREATING ENGINEER HELPER): Continue per ortho. She is seeing some improvement but it is difficult to know if the knee is rheumatoid versus osteo versus other etiology. Will await recommendations from JACQUI Raya but definitely encouraged her to become active as soon as possible. Status post total knee replacement using cement, right 05/19/2023 Assessment & Plan (06/02/2023 4:56 PM TREATING ENGINEER HELPER): Status post total knee replacement with Dr. Ge Sexton 04 May. She has just been released from rehab following up for her TCM visit. She appears to have an area of cellulitis at the incision site. She is also complaining of increased pain. Will check CBC CMP and inflammatory markers along with an x-ray. She plans to go to [facility] for the workup. Will follow up with [...] provided. Assessment & Plan (06/02/2023 8:27 AM TREATING ENGINEER HELPER): Discussed the patients BMI: The BMI is [...] 12/20/2022 Assessment & Plan (05/07/2024 8:55 PM TREATING ENGINEER HELPER): Patient is on medication for her rheumatoid arthritis managed by [facility] Assessment & Plan (01/22/2024 8:13 PM CDT): Medications from [facility] contribute to her immunosuppressive state. Assessment & Plan (09/06/2023 9:41 AM TREATING ENGINEER HELPER): Medications are managed by [facility] for her rheumatoid arthritis Assessment & Plan (04/06/2023 7:44 PM CDT): Managed by [facility]. Currently on Plaquenil methotrexate Orencia folic acid. [...] She has had evaluation by Urology at [facility] and has been told [...] capacity. Assessment & Plan (09/06/2023 9:41 AM TREATING ENGINEER HELPER): Continue per . She did not tolerate [...] Pate. Assessment & Plan (07/18/2022 10:20 AM TREATING ENGINEER HELPER): CT revealed pelvic lipomatosis that is compressing [...] 02/11/2022 Assessment & Plan (09/06/2023 9:41 AM TREATING ENGINEER HELPER): No change. Dysfunction of both eustachian tubes 02/11/2022 Myalgia, lower leg 01/11/2022 PLMD (periodic limb movement disorder) Assessment & Plan (08/02/2024 11:49 AM TREATING ENGINEER HELPER): Asymptomatic Assessment & Plan (06/22/2022 10:31 AM TREATING ENGINEER HELPER): Will continue Requip 1 mg nightly Assessment [...] bedtime. Assessment & Plan (07/13/2021 11:25 AM TREATING ENGINEER HELPER): Due to the patient stating that she [...] 06/04/2020 Assessment & Plan (08/23/2024 10:16 AM TREATING ENGINEER HELPER): Hepatitis negative 06/2020 Tspot negative 06/2020 Continue routine lab monitoring Maintain routine eye exams throughout the duration of taking hydroxychloroquine Assessment & Plan (07/30/2024 8:24 AM TREATING ENGINEER HELPER): Hepatitis negative 06/2020 Tspot negative 06/2020 Continue [...] hydroxychloroquine Assessment & Plan (09/01/2023 8:34 AM TREATING ENGINEER HELPER): Hepatitis negative 06/2020 Tspot negative 06/2020 Continue routine lab monitoring Maintain routine eye exams throughout the duration of taking hydroxychloroquine Assessment & Plan (06/29/2023 2:19 PM TREATING ENGINEER HELPER): Hepatitis negative 06/2020 Tspot negative 06/2020 Continue [...] hydroxychloroquine Assessment & Plan (07/14/2022 2:58 PM TREATING ENGINEER HELPER): Hepatitis negative 06/2020 Tspot negative 06/2020 Continue routine lab monitoring Maintain routine eye exams throughout the duration of taking hydroxychloroquine Assessment & Plan (06/03/2022 9:58 AM TREATING ENGINEER HELPER): Hepatitis negative 06/2020 Tspot negative 06/2020 Continue [...] hydroxychloroquine Assessment & Plan (09/03/2021 8:29 AM TREATING ENGINEER HELPER): Hepatitis negative 06/2020 Tspot negative 06/2020 Continue routine lab monitoring Maintain routine eye exams throughout the duration of taking hydroxychloroquine Assessment & Plan (06/03/2021 4:17 PM TREATING ENGINEER HELPER): Hepatitis negative 06/2020 Tspot negative 06/2020 Continue [...] hydroxychloroquine Assessment & Plan (09/02/2020 1:16 PM TREATING ENGINEER HELPER): Hepatitis negative 06/2020 Tspot negative 06/2020 Continue routine lab monitoring Maintain routine eye exams throughout the duration of taking hydroxychloroquine Assessment & Plan (07/09/2020 12:23 PM TREATING ENGINEER HELPER): Hepatitis negative 06/2020 Tspot negative 06/2020 Continue routine lab monitoring Maintain routine eye exams throughout the duration of taking hydroxychloroquine Drug-induced constipation 08/13/2019 Assessment & Plan (05/07/2024 8:54 PM TREATING ENGINEER HELPER): Patient with chronic constipation. Has been on [...] linzess Assessment & Plan (08/13/2019 8:57 AM TREATING ENGINEER HELPER): On Movantik with Dr. Soto Herpes zoster without complication 12/13/2018 Assessment & Plan (12/23/2018 10:18 PM CDT): Valtex to pharmacy. She has had shingles in the past. Pre-diabetes 10/31/2018 Assessment & Plan (05/07/2024 8:55 PM TREATING ENGINEER HELPER): Pre-diabetes/hyperglycemia is a precursor to Dm. Stressed [...] diabetes. Assessment & Plan (09/06/2023 9:40 AM TREATING ENGINEER HELPER): Pre-diabetes/hyperglycemia is a precursor to Dm. Stressed [...] diabetes. Assessment & Plan (09/11/2021 11:22 PM TREATING ENGINEER HELPER): Pre-diabetes/hyperglycemia is a precursor to Dm. Stressed importance of working on diet (decrease your simple sugars and one carbohydrate with each meal) and increase you exercise to achieve weight loss and this will help prevent you from progressing to diabetes. Assessment & Plan (05/29/2021 8:18 PM TREATING ENGINEER HELPER): Pre-diabetes/hyperglycemia is a precursor to Dm. Stressed [...] diabetes. Assessment & Plan (08/31/2020 9:34 AM TREATING ENGINEER HELPER): Pre-diabetes is a precursor to Dm. Stressed [...] diabetes. Assessment & Plan (08/13/2019 9:00 AM TREATING ENGINEER HELPER): This is a significant, separately identifiable problem [...] 10/31/2018 Assessment & Plan (05/07/2024 8:54 PM TREATING ENGINEER HELPER): Depression symptoms are stable with Wellbutrin XL 150 Cymbalta 60 b.i.d. Assessment & Plan (04/21/2024 8:50 PM CDT): Depression symptoms are stable with the Wellbutrin XL 150 and Cymbalta 60 b.i.d. Assessment & Plan (01/22/2024 8:11 PM CDT): Depression symptoms are stable with Wellbutrin and Cymbalta Assessment & Plan (09/06/2023 9:40 AM TREATING ENGINEER HELPER): Depression is stable with Wellbutrin and Cymbalta Assessment & Plan (08/03/2023 8:31 AM TREATING ENGINEER HELPER): Stable with Cymbalta 60 and Wellbutrin XL [...] Cymbalta Assessment & Plan (09/11/2021 11:26 PM TREATING ENGINEER HELPER): Continue Wellbutrin and Cymbalta Assessment & Plan (05/29/2021 8:22 PM TREATING ENGINEER HELPER): Continue Wellbutrin and Cymbalta Assessment & Plan (05/24/2021 10:39 AM TREATING ENGINEER HELPER): Continue Wellbutrin and Cymbalta Assessment & Plan (12/24/2020 9:07 AM CDT): Continue wellbutrin and cymbalta Assessment & Plan (08/31/2020 9:35 AM TREATING ENGINEER HELPER): Continue wellbutrin and cymbalta Assessment & Plan (02/18/2020 9:47 PM CDT): Stable with the Cymbalata Assessment & Plan (08/13/2019 8:59 AM TREATING ENGINEER HELPER): Stable with Cymbalta and Wellbutrin Assessment & [...] regimen. Med list updated to reflect the [id number] one daily and Prozac 40mg. Mixed hyperlipidemia 03/29/2018 Assessment & Plan (05/07/2024 8:54 PM TREATING ENGINEER HELPER): Encouraged patient to follow low fat/low chol [...] statin Assessment & Plan (09/06/2023 9:42 AM TREATING ENGINEER HELPER): Encouraged patient to follow low fat/low chol [...] statin Assessment & Plan (09/11/2021 11:26 PM TREATING ENGINEER HELPER): Encouraged patient to follow low fat/low chol diet like the Mediterranean diet. Increase good fats in the diet. Increase exercise. Monitor labs as needed. Continue statin Assessment & Plan (05/29/2021 8:22 PM TREATING ENGINEER HELPER): Encouraged patient to follow fat/low chol diet like the Mediterranean diet. Increase good fats in the diet. Increase exercise. Monitor labs as needed. Continue statin Assessment & Plan (05/24/2021 10:39 AM TREATING ENGINEER HELPER): Encouraged patient to follow fat/low chol diet like the Mediterranean diet. Increase good fats in the diet. Increase exercise. Monitor labs as needed. Continue statin Assessment & Plan (12/24/2020 9:07 AM CDT): Encouraged patient to follow fat/low chol diet like the Mediterranean diet. Increase good fats in the diet. Increase exercise. Monitor labs as needed. Continue statin Assessment & Plan (08/31/2020 9:34 AM TREATING ENGINEER HELPER): Encouraged patient to follow fat/low chol diet like the Mediterranean diet. Increase good fats in the diet. Increase exercise. Monitor labs as needed. Continue statin Assessment & Plan (02/18/2020 9:46 PM CDT): Encouraged patient to continue low fat/low chol diet. Continue exercise. Increase good fats in the diet. Monitor labs as needed. Assessment & Plan (08/13/2019 8:59 AM TREATING ENGINEER HELPER): Encouraged patient to continue low fat/low chol [...] future Assessment & Plan (09/06/2023 9:40 AM TREATING ENGINEER HELPER): Continue PPI Assessment & Plan (04/06/2023 7:36 PM CDT): Continue PPI p.r.n. Assessment & Plan (01/20/2023 8:13 PM CDT): Continue PPI Assessment & Plan (09/12/2022 6:13 PM CDT): Continue PPI p.r.n. Assessment & Plan (06/03/2022 3:40 PM TREATING ENGINEER HELPER): Pyrosis poorly controlled on Nexium. Pt has [...] PPI Assessment & Plan (09/11/2021 11:26 PM TREATING ENGINEER HELPER): Continue PPI Assessment & Plan (12/24/2020 9:05 AM CDT): Continue PPI Assessment & Plan (02/18/2020 9:45 PM CDT): Continue PPI. Saw Dr. Linton for increased GERD sxs. If persist, encouraged to followup again with Dr. Linton. Assessment & Plan (08/13/2019 8:58 AM TREATING ENGINEER HELPER): Stable with PPI Assessment & Plan (04/29/2019 [...] exertion) Assessment & Plan (06/22/2022 10:30 AM TREATING ENGINEER HELPER): Patient is not currently using inhalers. She [...] 10/14/2015 Assessment & Plan (08/02/2024 11:49 AM TREATING ENGINEER HELPER): Due to the patient stating the pressure [...] readjusted. She denied need for supplies. DME [facility] patient Assessment & Plan (05/07/2024 8:55 PM TREATING ENGINEER HELPER): Continue with CPAP. Assessment & Plan (04/21/2024 8:49 PM CDT): Continue per Dr. Dunn. Has all her needed supplies for CPAP which she is using every night. Continue with Requip 0.5 mg HS for restless leg Assessment & Plan (01/22/2024 8:08 PM CDT): Continue CPAP per Dr. Dothager Assessment & Plan (09/06/2023 9:40 AM TREATING ENGINEER HELPER): Continue CPAP Assessment & Plan (06/21/2023 10:14 AM TREATING ENGINEER HELPER): Patient continue to wear her CPAP at [...] CPAP Assessment & Plan (06/22/2022 10:31 AM TREATING ENGINEER HELPER): Will continue CPAP therapy at an auto titrating range of 7-20 cm water pressure. Denied need for supplies. DME [facility] patient Assessment & Plan (05/02/2022 9:15 [...] pressure. Patient denied need for supplies. DME [facility]. Patient is benefitting CPAP Assessment & Plan (09/11/2021 11:22 PM TREATING ENGINEER HELPER): Continue CPAP. Patient has all needed supplies. Assessment & Plan (07/13/2021 11:27 AM TREATING ENGINEER HELPER): Due to the patient stating she does not have enough pressure in her machine, I have increased the pressure to 13 cm water pressure. The patient denied need for for supplies. DME company [facility]. Have also ordered a new smart card set at 13 cm water pressure. Benefitting from CPAP therapy Assessment & Plan (05/29/2021 8:14 PM TREATING ENGINEER HELPER): Continue CPAP. Assessment & Plan (02/17/2021 11:09 AM CDT): The patient continues to be compliant with her CPAP at 8 cm water pressure. She has developed worsening daytime hypersomnia. She also has morning headaches and dry mouth. I have recommended proceeding with a CPAP titration study starting at 8 cm water pressure. Her DME is [facility]. Assessment & Plan (12/24/2020 9:04 AM CDT): Continue CPAP. Would like to see Pulm/sleep at [facility] as difficulty getting in consistently at [place] and most of her care is now [facility] Assessment & Plan (02/18/2020 9:44 PM CDT): Continue CPAP Assessment & Plan (08/13/2019 8:46 AM TREATING ENGINEER HELPER): Using the CPAP. Has equipment as needed. [...] noted. Assessment & Plan (08/23/2024 10:16 AM TREATING ENGINEER HELPER): 02/2021 XR L knee with mild to moderate OA, now s/p B TKA. Following with ortho as planned. Assessment & Plan (07/30/2024 11:23 AM TREATING ENGINEER HELPER): 02/2021 XR L knee with mild to [...] March. Assessment & Plan (09/01/2023 3:42 PM TREATING ENGINEER HELPER): 02/2021 XR L knee with mild to moderate OA, R knee negative. Had injections with ortho without benefit, now s/p L TKA. Assessment & Plan (06/30/2023 12:46 PM TREATING ENGINEER HELPER): 02/2021 XR L knee with mild to [...] g/d. Assessment & Plan (07/15/2022 1:41 PM TREATING ENGINEER HELPER): 02/2021 XR L knee with mild to moderate OA, R knee negative. Had injections with ortho with benefit. Unable to afford PT. Can continue Tylenol Arthritis, not to exceed 4 g/d. Assessment & Plan (06/03/2022 9:58 AM TREATING ENGINEER HELPER): 02/2021 XR L knee with mild to [...] evaluation. Assessment & Plan (09/03/2021 11:27 AM TREATING ENGINEER HELPER): XR L knee with mild to moderate [...] able. Assessment & Plan (06/04/2021 10:27 AM TREATING ENGINEER HELPER): XR L knee with mild to moderate [...] above. Assessment & Plan (09/03/2020 12:23 PM TREATING ENGINEER HELPER): 10/27/2017 XR L knee: mild tricompartmental OA. Will continue meloxicam as above. Assessment & Plan (07/09/2020 12:24 PM TREATING ENGINEER HELPER): 10/27/2017 XR L knee: mild tricompartmental OA. [...] examination. Assessment & Plan (08/23/2024 12:54 PM TREATING ENGINEER HELPER): Moderate cdai with report of increasing pain, [...] needed. Assessment & Plan (07/30/2024 11:22 AM TREATING ENGINEER HELPER): Moderate cdai with report of increased morning [...] visit with labs near her home ([facility] in [place]), but the following month will need to plan for an in person visit. She expressed understanding and agreement with this plan. Continue methotrexate 20 mg weekly, folic acid 2 mg daily, and hydroxychloroquine 200 mg BID. Labs today as below. Assessment & Plan (05/07/2024 8:55 PM TREATING ENGINEER HELPER): Managed by [facility]. Currently on Plaquenil and methotrexate and Orencia folic acid Mobic and gabapentin. 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 Assessment & Plan (04/21/2024 8:49 PM CDT): Continue per [facility]. They currently manage her [...] Plan (01/22/2024 8:17 PM CDT): Continue per [facility] as they manage her condition. Assessment & Plan (11/24/2023 9:58 AM CDT): Low cdai without inflammatory sounding pain. Will continue methotrexate 20 mg weekly, folic acid 2 mg daily, hydroxychloroquine 200 mg BID, and Orencia and monitor. Labs today as below. Follow up in 3 months or sooner as needed. Assessment & Plan (09/06/2023 9:42 AM TREATING ENGINEER HELPER): Rheumatoid arthritis is managed by [facility]. Currently on Plaquenil methotrexate Orencia and folic acid Assessment & Plan (09/01/2023 3:39 PM TREATING ENGINEER HELPER): Overall stable without notable synovitis and no inflammatory sounding pain. Will continue methotrexate 20 mg weekly, folic acid 2 mg daily, hydroxychloroquine 200 mg BID, and Orencia and monitor. Labs today as below. Follow up in 3 months or sooner as needed. Assessment & Plan (08/03/2023 8:28 AM TREATING ENGINEER HELPER): Continue with rheumatology. Assessment & Plan (06/30/2023 12:43 PM TREATING ENGINEER HELPER): Overall stable without notable synovitis and no inflammatory sounding pain. Will continue methotrexate 20 mg weekly, folic acid 2 mg daily, hydroxychloroquine 200 mg BID, and Orencia and monitor. Labs today as below. Assessment & Plan (06/02/2023 4:49 PM TREATING ENGINEER HELPER): Continue per Rheumatology Assessment & Plan (04/06/2023 7:35 PM CDT): Continue per Rheumatology. She has been in discussion with them on what medications to stop prior to her knee surgery. She states she was told to take all of her medicines accept the Orencia. Assessment & Plan (01/20/2023 8:12 PM CDT): Continue per Rheumatology [facility] Assessment & Plan (01/13/2023 3:42 [...] Plan (09/12/2022 6:06 PM CDT): Continue with [facility] Assessment & Plan (07/15/2022 1:41 PM TREATING ENGINEER HELPER): Low cdai. Significantly improved after IM triamcinolone [...] needed. Assessment & Plan (06/03/2022 3:37 PM TREATING ENGINEER HELPER): High cdai. Previously felt well controlled with [...] (01/23/2022 4:57 PM CDT): Continue management per [facility] Assessment & Plan (12/07/2021 9:02 AM CDT): Low cdai. Denies inflammatory sounding joint pain. Continue methotrexate 25 mg weekly, folic acid to 2 mg daily, Rinvoq 15 mg daily, hydroxychloroquine 200 mg BID, and cyclobenzaprine 5 mg qhs and monitor. Labs today as below. Plan for follow up in 3 months or sooner as needed. Assessment & Plan (09/11/2021 11:14 PM TREATING ENGINEER HELPER): Continue per [facility] Assessment & Plan (09/03/2021 11:25 AM TREATING ENGINEER HELPER): cdai = 12. Pt suspects increased joint pain 08/05 weather, she would like to monitor her pain as the weather improves with spring. Will plan to continue methotrexate 25 mg weekly, folic acid to 2 mg daily, Rinvoq 15 mg daily, hydroxychloroquine 200 mg BID, and cyclobenzaprine 5 mg qhs and monitor. Labs today as below. Plan for follow up in 3 months or sooner as needed. Assessment & Plan (06/04/2021 10:25 AM TREATING ENGINEER HELPER): Low cdai. Denies inflammatory sounding pain at present. Will plan to continue methotrexate 25 mg weekly, folic acid to 2 mg daily, Rinvoq 15 mg daily, hydroxychloroquine 200 mg BID, and cyclobenzaprine 5 mg qhs and monitor. Labs today as below. Plan for follow up in 3 months or sooner as needed. Assessment & Plan (05/31/2021 9:15 PM TREATING ENGINEER HELPER): Continue per Rheumatology Assessment & Plan (05/29/2021 8:13 PM TREATING ENGINEER HELPER): Continue per Rheumatology. Currently on Plaquenil methotrexate and folic acid. Assessment & Plan (05/24/2021 10:38 AM TREATING ENGINEER HELPER): Continue per Rheumatology Assessment & Plan (03/05/2021 [...] needed. Assessment & Plan (09/03/2020 12:22 PM TREATING ENGINEER HELPER): Low cdai. Continues to feel improved with [...] needed. Assessment & Plan (08/31/2020 9:34 AM TREATING ENGINEER HELPER): Continue per [facility] Assessment & Plan (07/09/2020 12:22 PM TREATING ENGINEER HELPER): 64yoF with a h/o seropositive RA diagnosed [...] time. Assessment & Plan (06/04/2020 11:14 AM TREATING ENGINEER HELPER): 64yoF with a h/o seropositive RA diagnosed [...] needed. Assessment & Plan (05/14/2020 9:33 PM TREATING ENGINEER HELPER): Refer to new Stock Clerk as Dr. Soto has . Assessment & Plan (02/18/2020 9:46 PM CDT): Continue per Rheum Assessment & Plan (08/13/2019 8:59 AM TREATING ENGINEER HELPER): Continue per Dr. Soto Assessment & Plan [...] responding to Reclast. Forteo was tried by [facility] and she could not [...] of her osteoporosis, recommended evaluation by the [facility], unfortunately their first available appt was in November 2024. Recommended today that she check with [facility] Osteoporosis center (at [facility]) to see how far out they are scheduling new patients, though she does not like this option due to distance from her house. Assessment & Plan (09/06/2023 9:40 AM TREATING ENGINEER HELPER): Managed by [facility]. Per patient they are making a referral to bone metabolism at [facility] she has not seen significant improvement with the Forteo or the Reclast. Assessment & Plan (09/01/2023 3:43 PM TREATING ENGINEER HELPER): DEXA: Lspine BMD 0.809 Tscore -2.2, L [...] have very limited treatment options to offer. Proljohn would cost $250/injection which she states it not affordable. Evenity too was expensive. Given the limitations in treatment and the severity of her osteoporosis, recommend evaluation by the [facility], provided contact info for Dr. Castillo. Pt in agreement with plan. Assessment & Plan (06/30/2023 12:49 PM TREATING ENGINEER HELPER): DEXA: Lspine BMD 0.809 Tscore -2.2, L [...] PM CDT): Continue to monitor. Managed by [facility]. Patient is on Reclast calcium vitamin-D [...] exercise Assessment & Plan (07/15/2022 1:42 PM TREATING ENGINEER HELPER): 01/27/2021 DEXA: Lspine -1.8, L femoral neck -1.9, L total hip -1.2, R femoral neck -2.3, R total hip -1.0, FRAX major 32% and hip 7%. Received Reclast 07/2021. Continue yearly Reclast, scheduled for 07/22 Assessment & Plan (06/03/2022 3:38 PM TREATING ENGINEER HELPER): 01/27/2021 DEXA: Lspine -1.8, L femoral neck [...] Plan (01/23/2022 5:02 PM CDT): Managed by [facility] currently on Reclast calcium and vitamin-D Assessment & Plan (12/07/2021 9:04 AM CDT): 01/27/2021 DEXA: Lspine -1.8, L femoral neck -1.9, L total hip -1.2, R femoral neck -2.3, R total hip -1.0, FRAX major 32% and hip 7%. Received Reclast 07/2021. Continue yearly Reclast. Assessment & Plan (09/03/2021 11:26 AM TREATING ENGINEER HELPER): 01/27/2021 DEXA: Lspine -1.8, L femoral neck -1.9, L total hip -1.2, R femoral neck -2.3, R total hip -1.0, FRAX major 32% and hip 7%. Received Reclast 07/2021. Continue yearly reclast and daily vitamin D-calcium supplement. Assessment & Plan (06/04/2021 10:27 AM TREATING ENGINEER HELPER): 01/27/2021 DEXA: Lspine -1.8, L femoral neck [...] order provided today, she will schedule at [facility] Assessment & Plan (12/24/2020 9:06 AM CDT): Continue Reclast thru Rheum Continue calcium, vitD and exercise Assessment & Plan (12/03/2020 10:45 AM CDT): Vitamin D level was 68. Received Reclast 07/09/2020. Last DEXA per available records was 01/31/2019, due this summer - order provided today, she will schedule at [facility] Assessment & Plan (09/03/2020 12:23 PM TREATING ENGINEER HELPER): Vitamin D level was 68. Received Reclast 07/09/2020. Last DEXA per available records was 01/31/2019, due this summer. Assessment & Plan (07/09/2020 12:23 PM TREATING ENGINEER HELPER): Overdue for Reclast, last infusion was 03/28/2019, will receive infusion today. Vitamin D level was 68 Last DEXA per available records was 01/31/2019 Assessment & Plan (06/04/2020 11:15 AM TREATING ENGINEER HELPER): Overdue for Reclast, last infusion was 03/28/2019, will check benefits. Recheck vitamin D level now. Last DEXA per available records was 01/31/2019 Assessment & Plan (02/18/2020 9:46 PM CDT): Calcium, vit D and exercise. Continue to monitor DXA Assessment & Plan (08/13/2019 8:58 AM TREATING ENGINEER HELPER): Continue with Calcium, Vit D and Exercise. [...] Krishnamurthy. 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 Daniels Stressed importance of very close follow-up BMI 37.0-37.9, adult 09/06/2023 024 Assessment & Plan (10/13/2023 7:38 AM CDT): Discussed the patient's BMI. The BMI is above average. BMI management plan is completed. BMI Follow-up includes: nutrition counseling, exercise counseling and education provided. Assessment & Plan (09/06/2023 9:42 AM TREATING ENGINEER HELPER): Discussed the patient's BMI. The BMI is above average. BMI management plan is completed. BMI Follow-up includes: nutrition counseling, exercise counseling and education provided. Hyperglycemia 09/06/2023 09/06/2023 Positive depression screening 09/06/2023 09/06/2023 Annual physical exam 09/06/2023 Assessment & Plan (09/06/2023 9:43 AM TREATING ENGINEER HELPER): Encouraged healthy lifestyle, good nutrition and exercise. Encouraged Calcium and Vitamin D and weight bearing exercise for bone health. Reviewed immunizations Reviewed age appropirate screenings. Right knee pain 08/09/2023 09/06/2023 Sinus congestion 08/07/2023 09/06/2023 Assessment & Plan (08/07/2023 7:54 PM TREATING ENGINEER HELPER): Persistent sinusitis symptoms along with cough. Will start doxy b.i.d.. Start antihistamine (Claritin OR Zyrtec), Mucinex 12hour and Steroid nasal spray (Flonase). Push fluids. Rest. Supportive care. If sxs worsen or don\'t improve, pt is to followup in the office. Acute cough 08/07/2023 01/22/2024 Assessment & Plan (08/07/2023 7:55 PM TREATING ENGINEER HELPER): Persistent sinusitis symptoms along with cough. Will start doxy b.i.d.. Start antihistamine (Claritin OR Zyrtec), Mucinex 12hour and Steroid nasal spray (Flonase). Push fluids. Rest. Supportive care. If sxs worsen or don\'t improve, pt is to followup in the office. BMI 35.0-35.9,adult 08/03/2023 09/06/19 Assessment & Plan (08/07/2023 7:51 PM TREATING ENGINEER HELPER): Discussed the patient's BMI. The BMI is above average. BMI management plan is completed. BMI Follow-up includes: nutrition counseling, exercise counseling and education provided. Assessment & Plan (08/03/2023 8:29 AM TREATING ENGINEER HELPER): Discussed the patient's BMI. The BMI is above average. BMI management plan is completed. BMI Follow-up includes: nutrition counseling, exercise counseling and education provided. Patient has noticed increased weight gain primarily secondary to not as much activity. Encouraged to consider water aerobics when she is cleared by JACUQI Rae for her knee as this will [...] 01/22/2024 Assessment & Plan (06/02/2023 4:57 PM TREATING ENGINEER HELPER): Later in the day received critical lab call for a CO2 value at 42. My staff contacted the patient and she was instructed to go to the ER for further evaluation to determine underlying cause. She states throughout the day she has noticed a little bit more shortness of breath. She plans to have her brother drive her to [facility]. Charge nurse was notified of the arrival [...] surgery. Will defer cardiac clearance to her apparatus operator. Her chronic medical conditions are stable. [facility] as instructed her to hold the Orencia [...] and/or regional anesthesia. BMI 32.0-32.9,adult 04/06/2023 06/02/20 23 Assessment & Plan (04/06/2023 9:12 AM CDT): [...] [place] on May 04 at [facility]. Need for vaccination for Strep pneumoniae [...] BMI between 35.00-39.99. BMI 37.0-37.9, adult 11/08/2022 Assessment & Plan (11/08/2022 11:25 AM CDT): [...] symptoms worsen or do not respond to [id number] allergy medicines within the next week she may call and will consider antibiotic. Left knee pain 09/13/2022 09/06/2023 BMI 39.0-39.9,adult 08/23/2022 11/09/19 Assessment & Plan (10/25/2022 3:32 PM CDT): Discussed the patient's BMI. The BMI is above average. BMI management plan is completed. BMI Follow-up includes: nutrition counseling, exercise counseling and education provided. Assessment & Plan (08/23/2022 2:19 PM TREATING ENGINEER HELPER): Discussed the patient's BMI. The BMI is [...] plans Assessment & Plan (07/18/2022 10:20 AM TREATING ENGINEER HELPER): CT revealed pelvic lipomatosis that is compressing [...] 12/20/2022 Assessment & Plan (07/18/2022 10:21 AM TREATING ENGINEER HELPER): CT revealed pelvic lipomatosis that is compressing [...] plan, Assessment & Plan (07/08/2022 12:33 PM TREATING ENGINEER HELPER): Patient has had dysuria. She was started [...] STAT abd/pelvis with and without contrast at [place]. Check labs STAT. Acute right flank pain 07/08/202204/06 Assessment & Plan (07/18/2022 10:21 AM TREATING ENGINEER HELPER): CT revealed pelvic lipomatosis that is compressing [...] plan, Assessment & Plan (07/08/2022 5:58 PM TREATING ENGINEER HELPER): Images from the original note were not [...] STAT abd/pelvis with and without contrast at [place]. Check labs STAT. STAT CT Abd/pelvis without [...] 09/06/2023 Assessment & Plan (07/08/2022 12:33 PM TREATING ENGINEER HELPER): Patient has had dysuria. She was started [...] STAT. Assessment & Plan (07/06/2022 8:50 AM TREATING ENGINEER HELPER): Pt presents with dysuria. Urine dip completed. [...] 35.00-39.99. Assessment & Plan (07/18/2022 10:23 AM TREATING ENGINEER HELPER): Discussed the patient's BMI. The BMI is above average. BMI management plan is completed. BMI Follow-up includes: nutrition counseling, exercise counseling and education provided. Assessment & Plan (07/08/2022 12:30 PM TREATING ENGINEER HELPER): Discussed the patient's BMI. The BMI is [...] She has received multiple injections from her bag loader machine operator regarding her knee but yesterday [...] 01/23/2022 Assessment & Plan (09/11/2021 11:28 PM TREATING ENGINEER HELPER): Patient has never had a full skin exam. She has quite a few lesions scattered and would benefit from a full exam. Will make referral Annual physical exam 09/11/2021 022 Assessment & Plan (09/11/2021 11:28 PM TREATING ENGINEER HELPER): Encouraged healthy lifestyle, good nutrition and exercise. Encouraged Calcium and Vitamin D and weight bearing exercise for bone health. Reviewed immunizations Reviewed age appropirate screenings. Cough 08/13/2021 01/23/2022 Assessment & Plan (08/13/2021 3:43 PM TREATING ENGINEER HELPER): Patient to presume positive COVID/FLU until results are available and plan to self isolate for up to 10 days from the onset of sxs. Check COVID/FLU test thru [facility] collection site in [place]. Let pt know the newest CDC recommendations [...] future. Assessment & Plan (07/13/2021 11:28 AM TREATING ENGINEER HELPER): I have ordered the patient Claritin 10 [...] provided. Assessment & Plan (09/11/2021 11:27 PM TREATING ENGINEER HELPER): Obesity is unchanged. Discussed the patient's BMI. The BMI is above average. BMI management plan is completed. BMI Follow-up includes: nutrition counseling, exercise counseling and education provided. Assessment & Plan (05/29/2021 8:24 PM TREATING ENGINEER HELPER): Obesity is unchanged. Discussed the patient's BMI. The BMI is above average. BMI management plan is completed. BMI Follow-up includes: nutrition counseling, exercise counseling and education provided. Assessment & Plan (05/12/2021 1:26 PM TREATING ENGINEER HELPER): Obesity is unchanged. Discussed the patient's BMI. The BMI is above average. BMI management plan is completed. BMI Follow-up includes: nutrition counseling, exercise counseling and education provided. BMI 37.0-37.9, adult 05/12/2021 022 Assessment & Plan (09/11/2021 11:27 PM TREATING ENGINEER HELPER): Obesity is unchanged. Discussed the patient's BMI. The BMI is above average. BMI management plan is completed. BMI Follow-up includes: nutrition counseling, exercise counseling and education provided. Assessment & Plan (05/29/2021 8:24 PM TREATING ENGINEER HELPER): Obesity is unchanged. Discussed the patient's BMI. The BMI is above average. BMI management plan is completed. BMI Follow-up includes: nutrition counseling, exercise counseling and education provided. Assessment & Plan (05/12/2021 1:26 PM TREATING ENGINEER HELPER): Obesity is unchanged. Discussed the patient's BMI. The BMI is above average. BMI management plan is completed. BMI Follow-up includes: nutrition counseling, exercise counseling and education provided. Tinea corporis 04/14/2021 01/23/2022 Assessment & Plan (05/31/2021 9:15 PM TREATING ENGINEER HELPER): Improving with Lotrisone. Keep the area clean and dry Assessment & Plan (05/29/2021 8:24 PM TREATING ENGINEER HELPER): Lotrisone to pharmacy. Encouraged her to keep the area clean and dry use her dryer to dry the skin before applying the cream. She is to call if symptoms worsen or do not resolve. Need for immunization against influenza 04/14/2021 05/31/2021 Assessment & Plan (05/29/2021 8:24 PM TREATING ENGINEER HELPER): Fluid updated in the office Medicare annual wellness visit, subsequent 04/13/2021 05/31/2021 Assessment & Plan (05/29/2021 8:23 PM TREATING ENGINEER HELPER): Encouraged healthy lifestyle, good nutrition and exercise. [...] 12/30/2020 Assessment & Plan (08/31/2020 9:31 AM TREATING ENGINEER HELPER): Error. This should be right calf but PT order sent and corrected so unable to remove. Fatigue 08/31/2020 09/06/2023 Assessment & Plan (04/06/2023 7:43 PM CDT): Probably multifactorial. Check labs and followup to re-evaluate Assessment & Plan (05/02/2022 9:16 PM CDT): Probably multifactorial. Check labs and followup to re-evaluate Assessment & Plan (08/31/2020 9:34 AM TREATING ENGINEER HELPER): Probably multifactorial. Check labs and followup to re-evaluate Pain in both lower extremities 08/31/2020 09/06/2023 Assessment & Plan (09/01/2023 3:41 PM TREATING ENGINEER HELPER): Cramping lower leg pain has resolved with [...] 200 mg qAM. BMI 40.0-44.9, adult 08/31/2020 Assessment & Plan (08/31/2020 9:33 AM TREATING ENGINEER HELPER): Obesity is unchanged. Discussed the patient's BMI. The BMI is above average. BMI management plan is completed. BMI Follow-up includes: nutrition counseling, exercise counseling and education provided. Pain of right calf 08/26/2020 Assessment & Plan (08/31/2020 9:31 AM TREATING ENGINEER HELPER): This is a significant, separately identifiable problem that was evaluated and managed on the same day as the wellness exam Unable to rule out DVT with her calf pain/sxs. Check STAT Venous doppler. Recvd Results and discussed with patient via phone. Negative for DVT. Recommend PT. Prefers [place] Annual physical exam 08/24/2020 Assessment & Plan (08/31/2020 9:34 AM TREATING ENGINEER HELPER): Encouraged healthy lifestyle, good nutrition and exercise. Encouraged Calcium and Vitamin D and weight bearing exercise for bone health. Reviewed immunizations Reviewed age appropirate screenings. Dizziness 05/07/2020 09/06/2023 Assessment & Plan (05/14/2020 9:35 PM TREATING ENGINEER HELPER): Suspect the dizziness is inner ear related. [...] imaging. Assessment & Plan (05/07/2020 1:49 PM TREATING ENGINEER HELPER): Declines to report to er now 'I [...] 05/14/2020 Assessment & Plan (05/07/2020 1:49 PM TREATING ENGINEER HELPER): Declines to report to er now 'I [...] 12/30/2020 Assessment & Plan (05/07/2020 1:49 PM TREATING ENGINEER HELPER): Declines to report to er now 'I [...] provided Assessment & Plan (05/31/2021 9:15 PM TREATING ENGINEER HELPER): Mammogram order provided Assessment & Plan (02/18/2020 9:47 PM CDT): Mammogram order provided today Medicare annual wellness visit, subsequent 02/15/2020 02/15/2020 Precordial pain 09/04/2019 09/06/2023 Assessment & Plan (08/07/2023 7:50 PM TREATING ENGINEER HELPER): Workup in the hospital. Cardiology states her [...] inhaler. Assessment & Plan (07/13/2021 11:26 AM TREATING ENGINEER HELPER): The patient will continue with Dulera 2 [...] 9:04 AM CDT): Continue singulair, Dulera and air prn Assessment & Plan (02/18/2020 9:43 PM CDT): Continue per pulmonary. Pt feels like she is breathing well. Annual physical exam 08/13/2019 020 Assessment & Plan (08/13/2019 8:59 AM TREATING ENGINEER HELPER): Encouraged healthy lifestyle, good nutrition and exercise. Encouraged Calcium and Vitamin D and weight bearing exercise for bone health. Reviewed immunizations Reviewed age appropirate screenings. Obesity, morbid, BMI 40.0-49.9 08/13/2019 09/23/2020 Assessment & Plan (08/26/2020 7:10 AM TREATING ENGINEER HELPER): Obesity is unchanged. Discussed the patient's BMI. The BMI is above average. BMI management plan is completed. BMI Follow-up includes: nutrition counseling, exercise counseling and education provided. Assessment & Plan (05/14/2020 9:33 PM TREATING ENGINEER HELPER): Obesity is unchanged. Discussed the patient's BMI. [...] provided. Assessment & Plan (08/13/2019 8:58 AM TREATING ENGINEER HELPER): Obesity is unchanged. Discussed the patient's BMI. [...] change Assessment & Plan (08/13/2019 9:01 AM TREATING ENGINEER HELPER): This is a significant, separately identifiable problem [...] 01/22/2024 Assessment & Plan (09/06/2023 9:42 AM TREATING ENGINEER HELPER): Probably multifactorial. Check labs and followup to re-evaluate Assessment & Plan (09/03/2021 11:28 AM TREATING ENGINEER HELPER): She notes increased fatigue and lack of [...] re-evaluate Assessment & Plan (08/13/2019 9:08 AM TREATING ENGINEER HELPER): Probably multifactorial. Check labs and followup to re-evaluate Check labs prior to next visit BMI 40.0-44.9, adult 08/02/2019 020 Assessment & Plan (08/13/2019 8:57 AM TREATING ENGINEER HELPER): Obesity is unchanged. Discussed the patient's BMI. The BMI is above average. BMI management plan is completed. BMI Follow-up includes: nutrition counseling, exercise counseling and education provided. Assessment & Plan (08/02/2019 7:21 AM TREATING ENGINEER HELPER): Obesity is unchanged. Discussed the patient's BMI. The BMI is above average. BMI management plan is completed. BMI Follow-up includes: nutrition counseling, exercise counseling and education provided. Morbid obesity 08/02/2019 08/13/2019 Assessment & Plan (08/02/2019 7:20 AM TREATING ENGINEER HELPER): Obesity is unchanged. Discussed the patient's BMI. The BMI is above average. BMI management plan is completed. BMI Follow-up includes: nutrition counseling, exercise counseling and education provided. Acute non-recurrent maxillary sinusitis 08/02/2019 08/13/2019 Assessment & Plan (08/02/2019 7:47 AM TREATING ENGINEER HELPER): Start antibiotic, antihistamine, Mucinex and Steroid nasal [...] is being sent directly to [facility] and they were working her in [...] pain for plan BMI 39.0-39.9,adult 12/27/2018 08/02/19 Assessment & Plan (04/29/2019 4:32 PM CDT): [...] 21 Assessment & Plan (05/14/2020 9:33 PM TREATING ENGINEER HELPER): Completed Doxy and steroid. No s/s infection. [...] p.r.n. Assessment & Plan (08/13/2019 8:59 AM TREATING ENGINEER HELPER): Continue with NSAIDs prn Atheroscler of [place] artery of both legs with intermit claudication 10/31/2018 12/20/2022 Assessment & Plan (09/11/2021 11:23 PM TREATING ENGINEER HELPER): Continue per vascular. She is on aspirin and statin Assessment & Plan (12/24/2020 9:03 AM CDT): Sxs stable. On ASA, statin and encouraged daily exercise. Assessment & Plan (02/18/2020 9:43 PM CDT): Continue per cardio. On ASA and statin Assessment & Plan (08/13/2019 8:45 AM TREATING ENGINEER HELPER): Continues with Dr. Alonso salmeron Assessment & Plan (11/01/2018 11:00 PM CDT): Pt sxs well controlled. On ASA Coronary artery disease of n ative artery of [place] heart with stable angina pectoris 10/31/2018 12/30/2020 Assessment & Plan (08/13/2019 8:36 AM TREATING ENGINEER HELPER): On ASA and Nitrate. Continue per cardio Depression 07/16/2018 09/11/2021 Frontal sinusitis 06/26/2018 12/24/2020 Leukopenia 03/29/2018 12/30/2020 Other chronic pain 08/05/2017 3 Chronic seasonal allergic rh initis due to pollen 04/25/2017 12/30/2020 Assessment & Plan (12/24/2020 9:03 AM CDT): Continue current regimen with singulair and otc Assessment & Plan (02/18/2020 9:44 PM CDT): Continue with otc regimen Assessment & Plan (08/13/2019 8:46 AM TREATING ENGINEER HELPER): Continue current regimen Assessment & Plan (11/01/2018 [...] potassium Assessment & Plan (09/11/2021 11:26 PM TREATING ENGINEER HELPER): Bp is stable/in acceptable range for any co-morbidities. Encouraged to limit sodium intake and exercise for weight control. Currently stable without medication Assessment & Plan (05/29/2021 8:19 PM TREATING ENGINEER HELPER): Bp is stable/in acceptable range for any co-morbidities. Encouraged to limit sodium intake and exercise for weight control. Continue Lasix is helping with the swelling and addition. Blood pressure stable Assessment & Plan (05/24/2021 10:38 AM TREATING ENGINEER HELPER): Continue Lasix potassium Assessment & Plan (12/24/2020 9:05 AM CDT): Bp is stable/in acceptable range for any co-morbidities. Encouraged to limit sodium intake and exercise for weight control. Assessment & Plan (08/31/2020 9:32 AM TREATING ENGINEER HELPER): Bp is stable/in acceptable range for any co-morbidities. Encouraged to limit sodium intake and exercise for weight control. Stable with laxis currently Assessment & Plan (02/18/2020 9:44 PM CDT): Bp is stable/in acceptable range for any co-morbidities. Encouraged to limit sodium intake and exercise for weight control. Assessment & Plan (08/13/2019 8:57 AM TREATING ENGINEER HELPER): Bp is stable/in acceptable range for any [...] difficulty pulling them. Recommend finding some on [employer] that fit her calf that she can zip on and off. Showed them to her on [employer] and where to order them. She states she will try to get them. Assessment & Plan (05/31/2021 9:16 PM TREATING ENGINEER HELPER): Improving slowly. May have been due to the Relafen. She is on 60 of Lasix with potassium 10 mEq daily. Continue with current plan. Keep legs elevated. Utilize compressi to improve cleared. on hose. Call if symptoms worsen or do not continue to improve. Assessment & Plan (05/29/2021 8:23 PM TREATING ENGINEER HELPER): Persistent lower extremity edema that has improved [...] CMP. Assessment & Plan (05/24/2021 10:39 AM TREATING ENGINEER HELPER): Patient that her swelling was improving since discharge for over the last day or so it seems to be increasing. Will increase the Lasix to 40mg Start K 10meq daily Recheck labs in 5 days Assessment & Plan (08/31/2020 9:33 AM TREATING ENGINEER HELPER): Continue lasix Palpitations 12/08/2015 12/30/2020 Overview (10/09/2016): Palpitations Other abnormal glucose 11/11/201508/31 Asthma 10/14/2015 12/24/2020 Assessment & Plan (08/13/2019 8:49 AM TREATING ENGINEER HELPER): Continue with current regimen and with Pulmonary Assessment & Plan (11/01/2018 10:53 PM CDT): Currently Stable with regimen. Monitor closely with current allergy season. Followup Dr. Gomez as directed. Menopause 10/14/2015 12/30/2020 Cervical pain (neck) 10/14/2015 023 Encounters Date Type Department Care Team Description 09/26/2024 Orders Only [facility] Family Medicine [address] [facility] [address] [place] [phone] Alee Elizondo PA Breast cancer screening by mammogram (Primary Dx) 09/25/2024 11:00 AM CDT Office Visit [facility] Care at [address] [phone] Jessica Collins NP Influenza A (Primary Dx); Acute cough 09/25/2024 Results Follow-Up [facility] [address] [place] [address] [address] [place] [phone] Alee Elizondo PA 09/20/2024 8:00 AM CDT Office Visit [facility] [address] [facility] [address] [place] [phone] Devika Marin MD Venous insufficiency (chronic) (peripheral) (Primary Dx); Mixed hyperlipidemia 09/20/2024 Telephone [facility] [address] [place] [address] [place] [phone] Michael Motta MD med clarification 09/14/[address] [phone] Codi Branham higinio 09/13/2024 2:45 PM CDT Office Visit [facility] [address] [place] [address] [place] [phone] Michael Motta MD Chronic pain of right knee (Primary Dx); History of total knee arthroplasty, right 09/13/2024 1:44 PM CDT - 09/13/2024 11:59 PM CDT Hospital Encounter [facility] [address] [place] [phone] Chronic pain of right knee Discharge Disposition: Discharge to home or self care 09/04/2024 Results Follow-Up [facility] [address] [place] [address] [address] [place] [phone] Alee Elizondo PA 08/31/[address] [place] [phone] Alee Elizondo PA Medical Question/Miscellaneou s 08/31/2024 Orders Only [address] [place] [phone] ProviderTania MD 08/29/2024 Nurse Triage [address] [place] [phone] Alee Elizondo PA 08/29/[address] [phone] Shailesh Dunn MD Med Refill (Ropinirol HCL 0.5MG tab) 08/24/2024 Results Follow-Up [address] [phone] Sangita Farrar PA 08/23/2024 11:30 AM TREATING ENGINEER HELPER Office Visit [address] [phone] Sangita Farrar PA 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) (Primary Dx); Primary osteoarthritis involving multiple joints; Encounter for medication monitoring 08/23/2024 Orders Only [facility] [address] [place] [address] Alee Elizondo PA 08/23/[address] [phone] Sangita Farrar PA Orencia Approved 08/21/[address] [phone] Codi Branham 08/02/2024 11:45 AM TREATING ENGINEER HELPER Office Visit [facility] [address] [phone] Magaly Snider NP OWEN on CPAP (Primary Dx); OWEN (obstructive sleep apnea); PLMD (periodic limb movement disorder) 08/02/2024 Telephone [facility] [place] [address] [facility] [address] [place] [address] Shailesh Dunn MD Orders Only 08/01/2024 Orders Only [facility] [address] [place] [address] [address] [place] [address] Alee Elizondo PA Pre-diabetes (Primary Dx); Mixed hyperlipidemia; Fatigue, unspecified type 07/30/2024 9:00 AM TREATING ENGINEER HELPER Office Visit [address] [address] Sangita Farrar PA 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) (Primary Dx); Primary osteoarthritis involving multiple joints; Encounter for medication monitoring 07/24/2024 2:00 PM TREATING ENGINEER HELPER Office Visit [facility] [address] [place] [phone] Michael Motta MD Status post total knee replacement using cement, right (Primary Dx) 07/24/2024 1:27 PM TREATING ENGINEER HELPER - 07/24/2024 11:59 PM TREATING ENGINEER HELPER Hospital Encounter [facility] [address] [place] [address] Status post total knee replacement using cement, right Discharge Disposition: Discharge to home or self care 07/24/[address] [place] [address] Alee Elizondo PA Referral Request (/) 07/12/2024 Telephone [facility] [address] [place] [phone] Michael Motta MD ret call from Last 3 Months Immunizations Immunization Administration Dates Next Due COVID-19 mRNA (PFIZER) 0.3 m L (30 mcg) vaccine (12 [...] d states Arthritis Allergic rhinitis Autoimmune disease GERD (gastroesophageal reflux disease) Sinusitis HL (hearing loss) right ear hear ing aide Congenital malformation left arm Sleep apnea wears cpap night ly Obesity RA (rheumatoid arthritis) (HCC) Prediabetes diet controlled Osteoporosis Family History Medical History Relation Name Comments Allergies Brother Allergies; Arthritis Father Salomón COPD Father Salomón Cancer Father Saloómn Colon cancer Father Salomón Cancer, colon; Coronary [...] 0.6 oz pur e alcohol) [facility] Utilities Answer Date Recorded In the past 12 months has [employer], gas, oil, or water [employer] threatened to shut off services in your [...] any clubs o r organizations such as jain groups, unions, fraternal or athletic groups, or [...] place to sleep or slept in a fpc (including now)? No 05/27/2023 PHQ-9 Answer Date [...] any time in the past 12 m [facility], were you homeless or living in a fpc (including now)? No 05/30/2024 Personal Safety Answer Date Recorded Have you ever been in or are you currently in a harmful physical or emotional relationship or is someone making you feel afraid or unsafe? Denies 05/30/2024 Comments No Sex and Gender Information Value Date Recorded Sex Assigned at Not on file Legal Sex Female 8:04 PM TREATING ENGINEER HELPER Gender Identity Female 02/15/2020 6:08 PM CDT [...] 09/20/2024 7:45 AM CDT Plan of Treatment Health Maintenance Due Date Last Done Comments Hepatitis B Screening 1973 Covid-19 Vaccine () 03/04/2024 08/17/2023, 04/14/2023, 04/14/2023, Additional history exists Breast Cancer Screening-Mammogram 08/02/2024 08/02/2023, 05/31/2022, 05/29/2021, Additional history exists Well Visit 65+ 04/11/2025 04/11/2024, 11/2023, 04/06/2023, Additional history exists Osteoporosis Screening-Bone [...] history exists Medical Devices Implanted Type Area [employer] Device Identifier Shelf Expiration Date Model / Serial / Lot [employer] Simplex P Radiopaque Full Dose Cement Bone Sterile 6191-1-010 - [id number] Implanted:Qty: 2 on 05/04/2023 by Michael Motta MD at [facility] Bone Cement Left: Knee [employer] 05/03/2025 6191-1-010 / 6191-1-001 / [id number] [employer] Simplex P Radiopaque Full Dose Cement Bone Sterile 6191-1-010 - [id number] Implanted:Qty: 2 on 05/30/2024 by Michael Motta MD at [facility] Bone Cement Right: Patella [employer] [id number] 05/03/2026 6191-1-010 / / [id number] [employer] Persona 14mm 30+ Mm Knee Tibia Taper Extension Stem [id number] - [id number] 4 - [id number] Implanted:Qty: 1 on 05/04/2023 by Michael Motta MD at [facility] Left: Knee [employer] [id number] 02/15/2033 [id number] / 09-6401-822- 14 / [id number] [employer] Persona Cemented Cruciate Retaining Knee Left 7 Narrow Component [id number] - A96-9366-552-1 1 - [id number] Implanted:Qty: 1 on 05/04/2023 by Michael Motta MD at [facility] Left: Knee [employer] [id number] 10/25/2032 [id number] / 74-6224-031- 01 / [id number] [employer] Baseplate Tibial Knee Cemented Left Fixed Stemmed Persona Size D Tivan[employer] [id number] - Q39-3251-062-3 1 - [id number] Implanted:Qty: 1 on 05/04/2023 by Michael Motta MD at [facility] Left: Knee [employer] [id number] 09/11/2032 [id number] / 46-9489-708- 01 / [id number] [employer] Persona 11mm Knee Left 6-7 C-D Insert Articular Vivacit-E Sterile [id number] - Q27-9712-561-4 1 - [id number] Implanted:Qty: 1 on 05/04/2023 by Michael Motta MD at [facility] Left: Knee [employer] [id number] 12/28/2025 [id number] / 76-2700-930- 11 / [id number] [employer] Persona 32mm Knee Component Patellar All Poly Latex Free 29-9948-884-32 - [id number] Implanted:Qty: 1 on 05/04/2023 by Michael Motta MD at [facility] [employer] 12/19/2027 [id number] / / [id number] [employer] Baseplate Tibial Knee Cemented Right Fixed Stemmed Persona Size C [employer]ivan[employer] [id number] - [id number] Implanted:Qty: 1 on 05/30/2024 by Michael Motta MD at [facility] Right: Knee [employer] [id number] 03/22/2033 [id number] / / [id number] [employer] Persona 29mm Knee Component Patellar All Poly Latex Free [id number] - [id number] Implanted:Qty: 1 on 05/30/2024 by Michael Motta MD at [facility] Right: Knee [employer] [id number] 12/18/2028 [id number] / / [id number] [employer] Persona 13mm Cruciate Retain Knee Right 6-7 Cd Insert Articular Latex Free [id number] - [id number] Implanted:Qty: 1 on 05/30/2024 by Michael Motta MD at [facility] Right: Patella [employer] [id number] 05/04/2025 [id number] / / [id number] [employer] Persona Cruciate Retaining Cemented Knee Right 7 Narrow Component [id number] - [id number] Implanted:Qty: 1 on 05/30/2024 by Michael Motta MD at [facility] Right: Knee [employer] [id number] 12/27/2033 [id number] / / [id number] [employer] Persona 14mm 30+ Mm Knee Tibia Taper Extension Stem [id number] - [id number] Implanted:Qty: 1 on 05/30/2024 by Michael Motta MD at [facility] Right: Knee [employer] [id number] 04/11/2034 [id number] / / [id number] Procedures Procedure Name Priority Date/Time Associated Diagnosis Comments POC INFLUENZA A/B, COVID-19 ANTIGEN Routine 09/25/2024 11:02 AM CDT Influenza A Acute cough XR KNEE RIGHT 3 VIEWS Schedule Routine, Read Routine (OP Routine) 09/13/2024 1:48 PM CDT Chronic pain of right knee CT ABDOMEN PELVIS W CONTRAST Schedule Routine, Read Routine (OP Routine) 08/29/2024 12:23 PM TREATING ENGINEER HELPER COMPREHENSIVE METABOLIC PANEL Routine 08/23/2024 2:11 PM TREATING ENGINEER HELPER Encounter for medication monitoring CBC WITH AUTO DIFFERENTIAL Routine 08/23/2024 2:11 PM TREATING ENGINEER HELPER Encounter for medication monitoring SCAN - LABS 08/23/2024 VITAMIN B12 Routine 08/02/2024 7:41 AM TREATING ENGINEER HELPER Fatigue, unspecified type LIPID PANEL Routine 08/02/2024 7:41 AM TREATING ENGINEER HELPER Mixed hyperlipidemia HEMOGLOBIN A1C Routine 08/02/2024 7:41 AM TREATING ENGINEER HELPER Pre-diabetes COMPREHENSIVE METABOLIC PANEL Routine 08/02/2024 7:41 AM TREATING ENGINEER HELPER Mixed hyperlipidemia CBC WITH AUTO DIFFERENTIAL Routine 08/02/2024 7:41 AM TREATING ENGINEER HELPER Fatigue, unspecified type TSH Routine 08/02/2024 7:41 AM TREATING ENGINEER HELPER Fatigue, unspecified type ERYTHROCYTE SEDIMENTATION RATE Routine 07/30/2024 2:36 PM TREATING ENGINEER HELPER 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) CRP (ACUTE PHASE) Routine 07/30/2024 2:3 6 PM TREATING ENGINEER HELPER 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) COMPREHENSIVE METABOLIC PANEL Routine 07/30/2024 2:36 PM TREATING ENGINEER HELPER Encounter for medication monitoring CBC WITH AUTO DIFFERENTIAL Routine 07/30/2024 2:36 PM TREATING ENGINEER HELPER Encounter for medication monitoring XR KNEE RIGHT 3 VIEWS Schedule Routine, Read Routine (OP Routine) 07/24/2024 1:35 PM TREATING ENGINEER HELPER Status post total knee replacement using cement, right SCREENING MAMMOGRAM BILATERAL W DYLLAN Schedule Routine, Read Routine (OP Routine) 08/02/2023 7:33 AM TREATING ENGINEER HELPER Breast cancer screening by mammogram DEXA AXIAL SKELETON BONE DENSITY 1 OR MORE SITES Schedule Routine, Read Routine (OP Routine) 04/12/2023 8:14 AM CDT COLONOSCOPY Routine 07/27/2021 HEPATITIS C ANTIBODY Routine 06/04/2020 10:29 AM TREATING ENGINEER HELPER Encounter for screening for other viral diseases Chronic fatigue from Last 3 Months or Most Recently Relevant to Health Maintenance Results * (ABNORMAL) POC Influenza A/B, COVID-19 antigen (09/25/2024 11:02 AM CDT) Influenza A Ag, POC Positive(A) Negative [facility] Influenza B Ag, POC Negative Negative [facility] COVID-19 Ag POC Presumptive Negative Presumptive Negative, Invalid [facility] Nasal 09/25/2024 11:0 2 AM CDT us Jessica Collins NP POINT OF CARE TEST ORDERABLES Final Result Performing Organization Address City/State/[facility] Co de Phone Number [facility] [address] [place] [address] * XR Knee Right 3 Views (09/13/2024 [...] John Sparrow M.D. RB T: Report ID: [id number] Reading Location: [id number] Procedure Note John Sparrow MD - 09/18/2024 [...] John Sparrow M.D. RB T: Report ID: [id number] Reading Location: [place] [address] Michael Motta MD IMIke XR PROCEDURES Final Re sult * (ABNORMAL) CT Abdomen Pelvis W Contrast (08/29/2024 12:23 PM TREATING ENGINEER HELPER) Anatomical Region Laterality Modality Body N/A Computed Tomogra phy Historical Provider MD LUNSF[facility] CT PROCEDURES Edited Result - Final * CBC with auto differential (08/23/2024 2:11 PM TREATING ENGINEER HELPER) WBC 4.8 3.8 - 10.8 Thousand/u L [...] [facility] Blood 08/23/2024 2:11 PM TREATING ENGINEER HELPER 08/23/2024 2:11 PM TREATING ENGINEER HELPER Sangita OSMAN LAB BLOOD ORDERABLES Vy l Result [facility] [address] [place] [address] * (ABNORMAL) Comprehensive metabolic panel (08/23/2024 2:11 PM TREATING ENGINEER HELPER) Pathologist [facility] Glucose 188(H) 65 - 99 mg/dL [facility] [...] [facility] Blood 08/23/2024 2:11 PM TREATING ENGINEER HELPER 08/23/2024 2:11 PM TREATING ENGINEER HELPER Sangita OSMAN LAB BLOOD ORDERABLES Vy l Result [facility] [address] [place] [address] * SCAN - LABS (08/23/2024) Alee OSMAN Final Resu lt * (ABNORMAL) CBC with auto differential (08/02/2024 7:41 AM TREATING ENGINEER HELPER) WBC 4.0 3.8 - 10.8 Thousand/u L [...] [facility] Blood 08/02/2024 7:41 AM TREATING ENGINEER HELPER 08/02/2024 7:42 AM TREATING ENGINEER HELPER us Alee OSMAN LAB BLOOD ORDERABLES Final Result [facility] [address] [address] * TSH (08/02/2024 7:41 AM TREATING ENGINEER HELPER) TSH 1.57 0.40 - 4.50 mIU/L [facility] Blood 08/02/2024 7:41 AM TREATING ENGINEER HELPER 08/02/2024 7:42 AM TREATING ENGINEER HELPER Alee OSMAN LAB BLOOD ORDERABLES Final Result Performing Organization Address [facility] Co de Phone Number [facility] [address] [address] [address] [address] * Hemoglobin A1c (08/02/2024 7:41 AM TREATING ENGINEER HELPER) Hgb A1C 5.4 <5.7 % of total Hgb [facility] Comment: For the purpose of screening for the presence of diabetes: <5.7% Consistent with the absence of diabetes 5.7-6.4% Consistent with increased risk for diabetes (prediabetes) > or =6.5% Consistent with diabetes This assay result is consistent with a decreased risk of diabetes. Currently, no consensus exists regarding use of hemoglobin A1c for diagnosis of diabetes in children. According to [place] [employer] (ADA) guidelines, hemoglobin A1c <7.0% represents optimal control in non- diabetic patients. Different metrics may apply to specific patient populations. Standards of Medical Care in Diabetes(ADA). Blood 08/02/2024 7:41 AM TREATING ENGINEER HELPER 08/02/2024 7:42 AM TREATING ENGINEER HELPER Alee OSMAN LAB BLOOD ORDERABLES Final Result Performing Organization Address [facility] Co de Phone Number [employer] [facility] [address] [place] [address] * Vitamin B12 (08/02/2024 7:41 AM TREATING ENGINEER HELPER) Vitamin B12 349 200 - 1,100 pg/mL [...] will have symptoms. Blood 08/02/2024 7:41 AM TREATING ENGINEER HELPER 08/02/2024 7:42 AM TREATING ENGINEER HELPER Alee OSMAN LAB BLOOD ORDERABLES Final Result Performing Organization Address [facility] Co de Phone Number [facility] [address] [address] [address] [place] [address] * Lipid panel (08/02/2024 7:41 AM TREATING ENGINEER HELPER) Cholesterol 127 <200 mg/dL [facility] [...] LDL-C. Barry FREITAS et al. ELAINE. 2013;310(19): 1841-7219 (http://education.Whatever/faq/QMT094) Chol/HDL ratio 1.7 <5.0 (calc) [facility] Non-HDL, (LDL+VLDL) 52 <130 mg/dL (calc) [facility] Comment: For patients with diabetes plus 1 major ASCVD risk factor, treating to a non-HDL-C goal of <100 mg/dL (LDL-C of <70 mg/dL) is considered a therapeutic option. Blood 08/02/2024 7:41 AM TREATING ENGINEER HELPER 08/02/2024 7:42 AM TREATING ENGINEER HELPER Alee OSMAN LAB BLOOD ORDERABLES Final Result Performing Organization Address [facility] Co de Phone Number [facility] [address] [address] [address] * Comprehensive metabolic panel (08/02/2024 7:41 AM TREATING ENGINEER HELPER) Glucose 99 65 - 99 mg/dL [facility] [...] [facility] Blood 08/02/2024 7:41 AM TREATING ENGINEER HELPER 08/02/2024 7:42 AM TREATING ENGINEER HELPER us Alee OSMAN LAB BLOOD ORDERABLES Final Result [facility] [address] [address] [place] [address] * CBC with auto differential (07/30/2024 2:36 PM TREATING ENGINEER HELPER) WBC 6.4 3.8 - 10.8 Thousand/u L [...] [facility] Blood 07/30/2024 2:36 PM TREATING ENGINEER HELPER 07/30/2024 2:36 PM TREATING ENGINEER HELPER us Sangita OSMAN LAB BLOOD ORDERABLES Vy l Result [facility] [address] [place] [address] [place] [address] * Erythrocyte sedimentation rate (07/30/2024 2:36 PM TREATING ENGINEER HELPER) Pathologist [facility] Erythrocyte sedimentation rate 11 < OR = 30 mm/h [facility] Blood 07/30/2024 2:36 PM TREATING ENGINEER HELPER 07/30/2024 2:36 PM TREATING ENGINEER HELPER Sangita Magalijose Farrar PA LAB BLOOD ORDERABLES Vy l Result Performing Organization Address [facility]/ZIP Co de Phone Number [facility] [address] [place] [address] * CRP (acute phase) (07/30/2024 2:36 PM TREATING ENGINEER HELPER) Pathologist [facility] C-RP <3.0 <8.0 mg/L [facility] Blood 07/30/2024 2:36 PM TREATING ENGINEER HELPER 07/30/2024 2:36 PM TREATING ENGINEER HELPER [facility] [place] LAB BLOOD ORDERABLES Vy l Result Performing Organization Address [facility] de Phone Number [facility] [address] [place] [address] * (ABNORMAL) Comprehensive metabolic panel (07/30/2024 2:36 PM TREATING ENGINEER HELPER) Pathologist [facility] Glucose 115(H) 65 - 99 mg/dL [facility] [...] [facility] Blood 07/30/2024 2:36 PM TREATING ENGINEER HELPER 07/30/2024 2:36 PM TREATING ENGINEER HELPER us Sangita OSMAN LAB BLOOD ORDERABLES Vy l Result [facility] [address] [place] [address] * XR Knee Right 3 Views (07/24/2024 1:35 PM TREATING ENGINEER HELPER) Anatomical Region Laterality Modality Lower Extremities, Knee Right Computed Radiography 07/25/2024 7:16 AM TREATING ENGINEER HELPER Narrative 07/25/2024 7:18 AM TREATING ENGINEER HELPER EXAM DESCRIPTION: XR KNEE RIGHT 3 VIEWS [...] signed by Elton CABA T: Report ID: [id number] Reading Location: [id number] Procedure Note Elton Jonas MD - 07/25/2024 [...] signed by Elton CABA T: Report ID: [id number] Reading Location: [id number] Michael Motta MD IMG XR PROCEDURES Final Re sult * Screening Mammogram Bilateral W Dyllan (08/02/2023 7:33 AM TREATING ENGINEER HELPER) Anatomical Region Laterality Modality Breast Bilateral Mammography [...] * Hepatitis C antibody (06/04/2020 10:29 AM TREATING ENGINEER HELPER) Hep C Ab NON-REACTI VE NON-REACT ALEXYS [facility] SIGNAL TO CUT-OFF 0.02 <1.00 [facility] Comment: HCV antibody was non-reactive. There is no laboratory evidence of HCV infection. In most cases, no further action is required. However, if recent HCV exposure is suspected, a test for HCV RNA (test code 01597) is suggested. For additional information please refer to http://education.Picklive/faq/OGW59l6 (This link is being provided for informational/ educational purposes only.) Blood specimen (specimen) 06/04/2020 10:29 AM TREATING ENGINEER HELPER 06/04/2020 10:30 AM TREATING ENGINEER HELPER Sangita OSMAN LAB MICROBIOLOGY - GENERA L ORDERABLES Final Result [facility] [address] [place] [address] from Last 3 Months or Most Recently Relevant to Health Maintenance Insurance [facility] MEDICARE ADVANTAGE Advance Directives For more information, please contact: [phone] Documents on File Type Date Recorded Patient Office Clin Asst Expl anation ADVANCE DIRECTIVE 05/17/2024 2:13 PM [facility] [employer] * Full Code (Latest Code Status on File) Date Activated Date Inactivated Comments 05/30/2024 12:38 PM 06/05/2024 6:31 PM * Full Code Date Activated Date Inactivated Comments 05/04/2023 2:33 PM 05/07/2023 3:07 AM * Full Code Date Activated Date Inactivated Comments 03/22/2021 4:39 PM 03/25/2021 6:17 PM Care Teams Pe Teacher Relationship Specialty Start Date End Date Alee Elizondo PA [address] [place] [address] PCP - General Internal Medicine 07/05/23 Sharan Linton MD Referring Physician Gastroenterology 10/31/18 Martha Starks MD Consulting Physician Cardiology 12/24/20 Shama Hines MD [address] [facility] [place], [address] [address] Consulting Physician Pain Management 01/19/21 Artis Grewal MD [address] [place] [address] Consulting Physician Rheumatology 01/30/21 Amy Mayes NP [address] [address] Nurse Practitioner Cardiovascular Disease 04/20/24 Shailesh Dunn MD [address] [address] Consulting Physician Pulmonary Disease 04/20/24 Sangita Farrar PA [address] [place] [address] Physician Handling Tech Rheumatology 05/15/24
--- OUTSIDE RECORDS SUMMARY | 2024-10-02 10:56 | XMS_ITS | Encounter Summary ---
Author Organization [facility] Address [address] [place] [address] Phone Care Team Providers Care Coffee Supervisor Name Role Phone Sharan Linton MD Unavailable [phone] Martha Starks MD Unavailable [phone] Shama Hines MD Unavailable Artis Grewal MD Unavailable [phone] Alee Elizondo Primary Care Provider [phone] Amy Mayes NP Unavailable [phone] Shailesh Dunn MD Unavailable [phone] Sangita Farrar Unavailable [phone] Encounter Details Date Type Department Care Team (Late st Contact Info) Description 08/24/2024 Results Follow-Up [facility] [address] [place] [address] Sangita Farrar PA [address] [place] [address] Social History Tobacco Use Types Packs/Day Years Used Date Smoking Tobacco: Never Smokeless Tobacco: Never Comments:Never used Alcohol Use Standard Drinks/Week Comments No 0 (1 standard drink = 0.6 oz pur e alcohol) [facility] Utilities Answer Date Recorded In the past [...] you attend chur ch or quaker services? 1 to 4 times per year 05/30/2024 Do you belong to any clubs o r organizations such as tenriism groups, unions, fraternal or athletic groups, or [...] place to sleep or slept in a fci (including now)? No 05/27/2023 PHQ-9 Answer Date [...] any time in the past 12 m [facility], were you homeless or living in a fci (including now)? No 05/30/2024 Personal Safety Answer Date Recorded Have you ever been in or are you currently in a harmful physical or emotional relationship or is someone making you feel afraid or unsafe? Denies 05/30/2024 Comments No Sex and Gender Information Value Date Recorded Sex Assigned at Not on file Legal Sex Female 8:04 PM PREVENTIVE MAINTENANCE ENGINEER Gender Identity Female 02/15/2020 6:08 PM [...] documented as of this encounter Care Teams Coffee Supervisor Relationship Specialty Start Date End Date Alee Elizondo PA [address] [facility] [address] [place] [address] PCP - General Internal Medicine 07/05/23 Sharan Linton MD Referring Physician Gastroenterology 10/31/18 Martha Starks MD Consulting Physician Cardiology 12/24/20 Shama Hines MD [address] [facility] [address] Consulting Physician Pain Management 01/19/21 Artis Grewal MD [address] [place] [address] Consulting Physician Rheumatology 01/30/21 Amy Mayes NP [address] [address] Nurse Practitioner Cardiovascular Disease 04/20/24 Shailesh Dunn MD [address] [facility] [address] [address] Consulting Physician Pulmonary Disease 04/20/24 Sangita Farrar PA [address] [place] [address] Physician Retaining Room Cutter Rheumatology 05/15/24 documented as of this encounter
--- OUTSIDE RECORDS SUMMARY | 2024-10-02 10:56 | XMS_ITS | Encounter Summary ---
Author Organization [facility] Facility Care Team Providers Care Lumber Puller Name Role Phone Alee Elizondo Primary Care Provider + [phone] Sharan Linton MD Unavailable +[phone] Taisha Gomez MD Unavailable +[phone] Parag Soto MD Unavailable +[phone] RaziaMartha singh MD Unavailable +[phone] Puneet Uribe MD Unavailable +[phone] Shama Hines MD Unavailable Artis Grewal MD Unavailable [phone] Harrison Pena RN Unavailable +[phone] Nafisa Gregg RN Unavailable +[phone] Tho Kelsey MD Primary Care Provider +[phone] Alee Elizondo Primary Care Provider + [phone] Amy Mayes NP Unavailable +[phone] Shailesh Dunn MD Unavailable +[phone] Sangita Farrar Unavailable +[phone] Encounter Details Date Type Department Care Team (Latest Contact Info) Description 09/29/2015 Orders Only MMG CLINCONV Provider, MD Tania [address] [place] [address] Social History Tobacco Use Types Packs/Day Years Used Date Smoking Tobacco: Never Assessed Comments Unknown Sex and Gender Information Value Date Recorded Sex Assigned at Not on file Legal Sex Female 8:04 PM WHARFINGER CHIEF Gender Identity Female 02/15/2020 6:08 PM CDT [...] COVID: Suspected 08/13/2021 08/14/2021 08/14/2021 3:06 AM WHARFINGER CHIEF COVID: Suspected 08/14/2021 08/14/2021 08/15/2021 3:05 AM WHARFINGER CHIEF COVID: Suspected 08/14/2021 08/14/2021 08/15/2021 6:25 AM WHARFINGER CHIEF COVID: Suspected 06/02/2023 06/02/2023 06/02/2023 7:25 PM WHARFINGER CHIEF COVID: Suspected 07/26/2023 07/26/2023 07/26/2023 3:10 PM WHARFINGER CHIEF COVID: Suspected 09/25/2024 09/25/2024 09/25/2024 11:03 AM CDT Influenza, adult 09/25/2024 09/25/2024 10/02/2024 3:05 AM CDT documented as of this encounter Care Teams Lumber Puller Relationship Specialty Start Date End Date Alee Elizondo PA 1095 [facility] 500 [place] [address] PCP - General Internal Medicine 02/01/17 06/29/23 Tho Kelsey MD 4600 [facility] 400 [place] [address] PCP - General Family Medicine 06/30/23 07/04/23 Alee Elizondo PA [address] [place] [address] [place] [address] PCP - General Internal Medicine 07/05/23 Sharan Linton MD [address] [place] [address] [place] [address] Referring Physician Gastroenterology 10/31/18 Taisha Gomez MD [address] [place] [address] [place] [address] Referring Physician Pulmonary Disease 10/31/18 12/23/20 Parag Soto MD [address] [place] [address] [place] [address] Referring Physician Rheumatology 10/31/18 12/23/20 Martha Starks MD [address] [place] [address] [place] [address] Consulting Physician Cardiology 12/24/20 Puneet Uribe MD [address] [facility] 110 [address] Consulting Physician Rheumatology 12/24/20 01/29/21 Shama Hines MD 4700 [facility] 230 [place] [address] Consulting Physician Pain Management 01/19/21 Artis Grewal MD [address] [place] [address] Consulting Physician Rheumatology 01/30/21 Harrison Pena, JULIUS [address] [place] [address] Placement Interviewer 05/30/23 09/04/23 Nafisa Gregg, JULIUS [address] [place] [address] [facility] 300 [address] Placement Interviewer 06/06/23 06/12/23 Amy Mayes NP [address] [address] Nurse Practitioner Cardiovascular Disease 04/20/24 Shailesh Dunn MD 4600 [facility] [address] [address] Consulting Physician Pulmonary Disease 04/20/24 Sangita Farrar PA [address] [place] [address] Physician Travel Cota Rheumatology 05/15/24 documented as of this encounter
--- OUTSIDE RECORDS SUMMARY | 2024-10-02 10:56 | XMS_ITS | Encounter Summary ---
Author Organization [facility] Facility Care Team Providers Care Systems Integration Manager Name Role Phone Alee Elizondo Primary Care Provider + [phone] Sharan Linton MD Unavailable +[phone] Taisha Gomez MD Unavailable +[phone] Parag Soto MD Unavailable [phone] RaziaMartha singh MD Unavailable +[phone] Puneet Uribe MD Unavailable +[phone] Shama Hines MD Unavailable Artis Grewal MD Unavailable [phone] Harrison Pena RN Unavailable +[phone] Nafisa Gregg RN Unavailable +[phone] Tho Kelsey MD Primary Care Provider +[phone] Alee Elizondo Primary Care Provider + [phone] Amy Mayes NP Unavailable +[phone] Shailesh Dunn MD Unavailable +[phone] Sangita Farrar Unavailable +[phone] Encounter Details Date Type Department Care Team (Latest Contact Info) Description 10/15/2016 Orders Only MMG CLINCONV Provider, MD Tania [address] [place] [address] Social History Tobacco Use Types Packs/Day Years Used Date Smoking Tobacco: Never Alcohol Use Standard Drinks/Week Comments No 0 (1 standard drink = 0.6 oz pur e alcohol) Comments Unknown Sex and Gender Information Value Date Recorded Sex Assigned at Not on file Legal Sex Female 8:04 PM CUSTOMER ADVISOR SPECIALIST Gender Identity Female 02/15/2020 6:08 PM [...] COVID: Suspected 08/13/2021 08/14/2021 08/14/2021 3:06 AM CUSTOMER ADVISOR SPECIALIST COVID: Suspected 08/14/2021 08/14/2021 08/15/2021 3:05 AM CUSTOMER ADVISOR SPECIALIST COVID: Suspected 08/14/2021 08/14/2021 08/15/2021 6:25 AM CUSTOMER ADVISOR SPECIALIST COVID: Suspected 06/02/2023 06/02/2023 06/02/2023 7:25 PM CUSTOMER ADVISOR SPECIALIST COVID: Suspected 07/26/2023 07/26/2023 07/26/2023 3:10 PM CUSTOMER ADVISOR SPECIALIST COVID: Suspected 09/25/2024 09/25/2024 09/25/2024 11:03 AM CDT Influenza, adult 09/25/2024 09/25/2024 10/02/2024 3:05 AM CDT documented as of this encounter Care Teams Systems Integration Manager Relationship Specialty Start Date End Date Alee Elizondo PA 1095 [facility] 500 [place] [address] PCP - General Internal Medicine 02/01/17 06/29/23 Tho Kelsey MD [address] [facility] [address] [facility] 400 [place] [address] PCP - General Family Medicine 06/30/23 07/04/23 Alee Elizondo PA [address] [place] [address] [place] [address] PCP - General Internal Medicine 07/05/23 Sharan Linton MD [address] [place] [address] [place] [address] Referring Physician Gastroenterology 10/31/18 Taisha Gomez MD [address] [facility] [address] [place] [address] [place] [address] Referring Physician Pulmonary Disease 10/31/18 12/23/20 Parag Soto MD [address] [place] [address] [place] [address] Referring Physician Rheumatology 10/31/18 12/23/20 Martha Starks MD [address] [place] [address] [place] [address] Consulting Physician Cardiology 12/24/20 Puneet Uribe MD [address] [facility] 110 [place] [address] Consulting Physician Rheumatology 12/24/20 01/29/21 Shama Hines MD 4700 [facility], [facility] 230 [place] [address] Consulting Physician Pain Management 01/19/21 Artis Grewal MD [address] [place] [address] Consulting Physician Rheumatology 01/30/21 Harrison Pena, JULIUS [address] [place] [address] Cable Technician 05/30/23 09/04/23 Nafisa Gregg, JULIUS [address] [place] [address] [facility] 300 [place] [address] Cable Technician 06/06/23 06/12/23 Amy Mayes NP [address] [facility] 102 [place] [address] Nurse Practitioner Cardiovascular Disease 04/20/24 Shailesh Dunn MD 4600 [facility] 200 [place] [address] Consulting Physician Pulmonary Disease 04/20/24 Sangita Farrar PA [address] [place] [address] Physician Machine Shop Inspector Rheumatology 05/15/24 documented as of this encounter
--- OUTSIDE RECORDS SUMMARY | 2024-10-02 10:57 | XMS_ITS | Encounter Summary ---
Author Organization [facility] Healthcare Address [address] [place] [address] Care Team Providers Care Slide Fasteners Inspector Name Role Phone Sharan Linton MD Unavailable [phone] Martha Starks MD Unavailable +[phone] Shama Hines MD Unavailable Artis Grewal MD Unavailable Alee Elizondo Primary Care Provider [phone] Amy Mayes NP Unavailable +[phone] Shailesh Dunn MD Unavailable [phone] Sangita Farrar Unavailable +[phone] Encounter Details Date Type Department Care Team (Late st Contact Info) Description 03/02/2024 Telephone [facility] Medical Group Family Medicine [address] [place] [address] Alee Elizondo PA [address] [facility] [address] [place] [address] [place] [address] Social History Tobacco Use Types Packs/Day Years Used Date Smoking Tobacco: Never Smokeless Tobacco: Never Comments:Never used Alcohol Use Standard Drinks/Week Comments No 0 (1 standard drink = 0.6 oz pur e alcohol) [facility] Utilities Answer Date Recorded In the past 12 months has [employer], gas, oil, or water company threatened to [...] often do you attend chur ch or mormon services? More than 4 times per year 05/27/2023 Do you belong to any clubs o r organizations such as scientologist groups, unions, fraternal or athletic groups, or [...] place to sleep or slept in a alf (including now)? No 05/27/2023 PHQ-9 Answer Date [...] on file Legal Sex Female 8:04 PM BOTTOM STOP ATTACHER Gender Identity Female 02/15/2020 6:08 PM CDT [...] documented as of this encounter Care Teams Slide Fasteners Inspector Relationship Specialty Start Date End Date Alee Elizondo PA 1095 [facility] 500 [place] [address] PCP - General Internal Medicine 07/05/23 Sharan Linton MD Referring Physician Gastroenterology 10/31/18 Martha Starks MD Consulting Physician Cardiology 12/24/20 Shama Hines MD [address] [address] Consulting Physician Pain Management 01/19/21 Artis Grewal MD [address] [place] [address] Consulting Physician Rheumatology 01/30/21 Amy Mayes NP [address] [address] Nurse Practitioner Cardiovascular Disease 04/20/24 Shailesh Dunn MD [address] [address] Consulting Physician Pulmonary Disease 04/20/24 Sangita Farrar PA [address] [place] [address] Physician Pool Installer Rheumatology 05/15/24 documented as of this encounter
== END 2024-10-02 10:01 | disposition home or self-care (01) ==
PROVIDERS: PCP Physician Assistant; Visit Provider Physician Assistant
DX: Z12.31 Encounter for screening mammogram for malignant neoplasm of breast (principal)
CPT/HCPCS: 77063; 77067

== ENCOUNTER 2024-10-02 12:33 | Emergency (ER) | payer MEDICARE, SELFPAY ==
--- NOTE | ~2024-10-02 | CT_ITS ---
CLINICAL INDICATION: Left lower quadrant pain. Urinary retention COMPARISON: 08/30/2024 TECHNIQUE: Multiple contiguous axial images of the abdomen and pelvis were performed following the ad ministration of with 100 mL Omnipaque-350 intravenous contrast The dose-length product (DLP) was 990.20 mGy-cm. Automated exposure control and iterative reconstruction technique were employed. FINDINGS/OBSERVATIONS: Visualized lower thorax: The bilateral lung bases are clear. The heart is of normal size, without pericardial effusion. Small hiatal hernia is present. Liver: Redemonstration of a large hemangioma within the caudate lobe of the liver, unchanged from cameron or. The remainder of the liver demonstrates otherwise homogeneous enhancement and is not enlarged or. Gallbladder and biliary system: The gallbladder is surgically absent. Pancreas: The pancreas enhances homogeneously without ductal dilatation. Spleen: Punctate calcifications identified within the splenic parenchyma, suggesting prior granulomat ous disease. The remainder of the spleen otherwise enhances homogeneously and is not enlarged. Kidneys: Rounded foci of fluid attenuation are again identified within the bilateral kidneys. These are most consistent with simple cyst. Within the lower pole of the left kidney one of these cysts con tains punctate calcifications, unchanged from prior. The remainder of the bilateral kidneys otherwise enhance symmetrically without hydronephrosis or deidre l calculi. Adrenal glands: Unremarkable. Gastrointestinal tract: Bowel loops are unremarkable. Appendix: The appendix is not definitively visualized. However, no pericecal inflammatory change is identified suggest the presence of acute appendicitis. Vasculature: Unremarkable. Lymph nodes: No pathologically enlarged or morphologically suspicious lymph nodes within the retroperitoneum or at the root of the mesentery. Pelvic structures: The bladder is decompressed with a Lyles catheter, limiting its evaluation. The uterus is either atrophic or surgically absent. Significant pelvic lipomatosis is identified, demonstrating mass effect on the patient's bladder and rectum. This is likely the source of patient's urinary retention. Body wall and musculoskeletal: Small fat-containing umbilical hernia. Age-appropriate degenerative disease. IMPRESSION: Significant pelvic lipomatosis demonstrating mass effect on the patient's bladder and rec clifford likely the source of patient's urinary retention. Findings suggesting prior granulomatous disease. Reviewed, dictated and finalized at location A. IMPRESSION: Significant pelvic lipomatosis demonstrating mass effect on the pat ient's bladder and rectum likely the source of patient's urinary retention. Findings suggesting prior granulomatous disease.
[2024-10-02 12:37] VITALS: BP 143/51; PULSE 72; RESP 16; TEMP 36.2; O2SAT 97
--- OUTSIDE RECORDS SUMMARY | 2024-10-02 13:25 | XMS_ITS | Encounter Summary ---
Author Organization [facility] Facility Care Team Providers Care Resource Economist Name Role Phone Alee Elizondo Primary Care Provider + [phone] Sharan Linton MD Unavailable [phone] Taisah Gomez MD Unavailable +[phone] Parag Soto MD Unavailable [phone] RaziaMartha singh MD Unavailable +[phone] Puneet Uribe MD Unavailable +[phone] Shama Hines MD Unavailable Artis Grewal MD Unavailable [phone] Harrison Pena RN Unavailable +[phone] Nafisa Gregg RN Unavailable +[phone] Tho Kelsey MD Primary Care Provider +[phone] Alee Elizondo Primary Care Provider + [phone] Amy Mayes NP Unavailable +[phone] Shailesh Dunn MD Unavailable +[phone] Sangita Farrar Unavailable +[phone] Encounter Details Date Type Department Care Team (Latest Contact Info) Description 03/24/2016 Orders Only MMG CLINCONV Provider, MD Tania [address] [place] [address] Social History Tobacco Use Types Packs/Day Years Used Date Smoking Tobacco: Never Alcohol Use Standard Drinks/Week Comments No 0 (1 standard drink = 0.6 oz pur e alcohol) Comments Unknown Sex and Gender Information Value Date Recorded Sex Assigned at Not on file Legal Sex Female 8:04 PM CONTROL MANAGER Gender Identity Female 02/15/2020 6:08 PM [...] COVID: Suspected 08/13/2021 08/14/2021 08/14/2021 3:06 AM CONTROL MANAGER COVID: Suspected 08/14/2021 08/14/2021 08/15/2021 3:05 AM CONTROL MANAGER COVID: Suspected 08/14/2021 08/14/2021 08/15/2021 6:25 AM CONTROL MANAGER COVID: Suspected 06/02/2023 06/02/2023 06/02/2023 7:25 PM CONTROL MANAGER COVID: Suspected 07/26/2023 07/26/2023 07/26/2023 3:10 PM CONTROL MANAGER COVID: Suspected 09/25/2024 09/25/2024 09/25/2024 11:03 AM CDT Influenza, adult 09/25/2024 09/25/2024 10/02/2024 3:05 AM CDT documented as of this encounter Care Teams Resource Economist Relationship Specialty Start Date End Date Alee Elizondo PA 1095 [facility] 500 [place] [address] PCP - General Internal Medicine 02/01/17 06/29/23 Tho Kelsey MD [address] [facility] [address] [facility] 400 [place] [address] PCP - General Family Medicine 06/30/23 07/04/23 Alee Elizondo PA [address] [place] [address] [place] [address] PCP - General Internal Medicine 07/05/23 Sharan Linton MD [address] [place] [address] [place] [address] Referring Physician Gastroenterology 10/31/18 Taisha Gomez MD [address] [facility] [address] [place] [address] [place] [address] Referring Physician Pulmonary Disease 10/31/18 12/23/20 Parag Soto MD [address] [place] [address] [place] [address] Referring Physician Rheumatology 10/31/18 12/23/20 Martha Starks MD [address] [place] [address] [place] [address] Consulting Physician Cardiology 12/24/20 Puneet Uribe MD [address] [facility] 110 [place] [address] Consulting Physician Rheumatology 12/24/20 01/29/21 Shama Hines MD 4700 [facility], [facility] 230 [place] [address] Consulting Physician Pain Management 01/19/21 Artis Grewal MD [address] [place] [address] Consulting Physician Rheumatology 01/30/21 Harrison Pena, JULIUS [address] [place] [address] Contribution Solicitor 05/30/23 09/04/23 Nafisa Gregg, JULIUS [address] [place] [address] [facility] 300 [place] [address] Contribution Solicitor 06/06/23 06/12/23 Amy Mayes NP [address] [facility] 102 [place] [address] Nurse Practitioner Cardiovascular Disease 04/20/24 Shailesh Dunn MD 4600 [facility] 200 [place] [address] Consulting Physician Pulmonary Disease 04/20/24 Sangita Farrar PA [address] [place] [address] Physician Mechatronics Engineer Rheumatology 05/15/24 documented as of this encounter
--- OUTSIDE RECORDS SUMMARY | 2024-10-02 13:25 | XMS_ITS | Encounter Summary ---
Author Organization [facility] Facility Care Team Providers Care Cupola Patcher Name Role Phone Alee Elizondo Primary Care Provider + [phone] Sharan Linton MD Unavailable +[phone] Taisha Gomez MD Unavailable +[phone] Parag Soto MD Unavailable [phone] RaziaMartha singh MD Unavailable [phone] Puneet Uribe MD Unavailable +[phone] Shama Hines MD Unavailable Artis Grewal MD Unavailable [phone] Harrison Pena RN Unavailable +[phone] Nafisa Gregg RN Unavailable +[phone] Tho Kelsey MD Primary Care Provider +[phone] Alee Elizondo Primary Care Provider + [phone] Amy Mayes NP Unavailable +[phone] Shailesh Dunn MD Unavailable +[phone] Sangita Farrar Unavailable +[phone] Encounter Details Date Type Department Care Team (Latest Contact Info) Description 09/29/2015 Orders Only MMG CLINCONV Provider, MD Tania [address] [place] [address] Social History Tobacco Use Types Packs/Day Years Used Date Smoking Tobacco: Never Assessed Comments Unknown Sex and Gender Information Value Date Recorded Sex Assigned at Not on file Legal Sex Female 8:04 PM FIRST BEATER Gender Identity Female 02/15/2020 6:08 PM CDT [...] COVID: Suspected 08/13/2021 08/14/2021 08/14/2021 3:06 AM FIRST BEATER COVID: Suspected 08/14/2021 08/14/2021 08/15/2021 3:05 AM FIRST BEATER COVID: Suspected 08/14/2021 08/14/2021 08/15/2021 6:25 AM FIRST BEATER COVID: Suspected 06/02/2023 06/02/2023 06/02/2023 7:25 PM FIRST BEATER COVID: Suspected 07/26/2023 07/26/2023 07/26/2023 3:10 PM FIRST BEATER COVID: Suspected 09/25/2024 09/25/2024 09/25/2024 11:03 AM CDT Influenza, adult 09/25/2024 09/25/2024 10/02/2024 3:05 AM CDT documented as of this encounter Care Teams Cupola Patcher Relationship Specialty Start Date End Date Alee Elizondo PA 1095 [facility] 500 [place] [address] PCP - General Internal Medicine 02/01/17 06/29/23 Tho Kelsey MD 4600 [facility] 400 [place] [address] PCP - General Family Medicine 06/30/23 07/04/23 Alee Elizondo PA [address] [place] [address] [place] [address] PCP - General Internal Medicine 07/05/23 Sharan Linton MD [address] [place] [address] [place] [address] Referring Physician Gastroenterology 10/31/18 Taisha Gomez MD [address] [place] [address] [place] [address] Referring Physician Pulmonary Disease 10/31/18 12/23/20 Parag Soto MD [address] [place] [address] [place] [address] Referring Physician Rheumatology 10/31/18 12/23/20 Martha Starks MD [address] [place] [address] [place] [address] Consulting Physician Cardiology 12/24/20 Puneet Uribe MD [address] [facility] [address] [place] [address] Consulting Physician Rheumatology 12/24/20 01/29/21 Shama Hines MD [address] [facility], [facility] 230 [place] [address] Consulting Physician Pain Management 01/19/21 Artis Grewal MD [address] [place] [address] Consulting Physician Rheumatology 01/30/21 Harrison Pena, JULIUS [address] [place] [address] Unit Educator 05/30/23 09/04/23 Nafisa Gregg, JULIUS [address] [place] [address] [facility] 300 [place] [address] Unit Educator 06/06/23 06/12/23 Amy Mayes NP [address] [address] Nurse Practitioner Cardiovascular Disease 04/20/24 Shailesh Dunn MD 4600 [facility] [address] [address] Consulting Physician Pulmonary Disease 04/20/24 Sangita Farrar PA [address] [place] [address] Physician Marine Surveyor Rheumatology 05/15/24 documented as of this encounter
--- OUTSIDE RECORDS SUMMARY | 2024-10-02 13:25 | XMS_ITS | Encounter Summary ---
Author Organization [facility] Facility Care Team Providers Care Sink Maker Name Role Phone Alee Elizondo Primary Care Provider + [phone] Sharan Linton MD Unavailable [phone] Taisha Gomez MD Unavailable [phone] Parag Soto MD Unavailable [phone] RaziaMartha singh MD Unavailable [phone] Puneet Uribe MD Unavailable +[phone] Shama Hines MD Unavailable Artis Grewal MD Unavailable [phone] Harrison Pena RN Unavailable +[phone] Nafisa Gregg RN Unavailable Tho Kelsey MD Primary Care Provider +[phone] Alee Elizondo Primary Care Provider + [phone] Amy Mayes NP Unavailable +[phone] Shailesh Dunn MD Unavailable +[phone] Sangita Farrar Unavailable +[phone] Encounter Details Date Type Department Care Team (Latest Contact Info) Description 04/19/2016 Orders Only MMG CLINCONV Provider, MD Tania [address] [place] [address] Social History Tobacco Use Types Packs/Day Years Used Date Smoking Tobacco: Never Alcohol Use Standard Drinks/Week Comments No 0 (1 standard drink = 0.6 oz pur e alcohol) Comments Unknown Sex and Gender Information Value Date Recorded Sex Assigned at Not on file Legal Sex Female 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 Gender Identity Female 02/15/2020 6:08 [...] Suspected 08/13/2021 08/14/2021 08/14/2021 3:06 AM CLAY DRY PRESS OPERATOR COVID: Suspected 08/14/2021 08/14/2021 08/15/2021 3:05 AM CLAY DRY PRESS OPERATOR COVID: Suspected 08/14/2021 08/14/2021 08/15/2021 6:25 AM CLAY DRY PRESS OPERATOR COVID: Suspected 06/02/2023 06/02/2023 06/02/2023 7:25 PM CLAY DRY PRESS OPERATOR COVID: Suspected 07/26/2023 07/26/2023 07/26/2023 3:10 PM CLAY DRY PRESS OPERATOR COVID: Suspected 09/25/2024 09/25/2024 09/25/2024 11:03 AM CDT Influenza, adult 09/25/2024 09/25/2024 10/02/2024 3:05 AM CDT documented as of this encounter Care Teams Sink Maker Relationship Specialty Start Date End Date Alee Elizondo PA 1095 [facility] 500 [place] [address] PCP - General Internal Medicine 02/01/17 06/29/23 Tho Kelsey MD [address] [facility] [address] [facility] 400 [place] [address] PCP - General Family Medicine 06/30/23 07/04/23 Alee Elizondo PA [address] [place] [address] [place] [address] PCP - General Internal Medicine 07/05/23 Sharan Linton MD [address] [place] [address] [place] [address] Referring Physician Gastroenterology 10/31/18 Taisha Gomez MD [address] [facility] [address] [place] [address] [place] [address] Referring Physician Pulmonary Disease 10/31/18 12/23/20 Parag Soto MD [address] [place] [address] [place] [address] Referring Physician Rheumatology 10/31/18 12/23/20 Martha Starks MD [address] [place] [address] [place] [address] Consulting Physician Cardiology 12/24/20 Puneet Uribe MD [address] [facility] 110 [place] [address] Consulting Physician Rheumatology 12/24/20 01/29/21 Shama Hines MD 4700 [facility], [facility] 230 [place] [address] Consulting Physician Pain Management 01/19/21 Artis Grewal MD [address] [place] [address] Consulting Physician Rheumatology 01/30/21 Harrison Pena, JULIUS [address] [place] [address] Manager Nursing 05/30/23 09/04/23 Nafisa Gregg, JULIUS [address] [place] [address] [facility] 300 [place] [address] Manager Nursing 06/06/23 06/12/23 Amy Mayes NP [address] [facility] 102 [place] [address] Nurse Practitioner Cardiovascular Disease 04/20/24 Shailesh Dunn MD 4600 [facility] 200 [place] [address] Consulting Physician Pulmonary Disease 04/20/24 Sangita Farrar PA [address] [place] [address] Physician Websphere Commerce Architect Rheumatology 05/15/24 documented as of this encounter
--- OUTSIDE RECORDS SUMMARY | 2024-10-02 13:25 | XMS_ITS | Encounter Summary ---
Author Organization [facility] Healthcare Address [address] [place] [address] Care Team Providers Care Visual Merchandise Manager Name Role Phone Sharan Linton MD Unavailable [phone] Martha Starks MD Unavailable [phone] Shama Hines MD Unavailable Artis Grewal MD Unavailable [phone] Alee Elizondo Primary Care Provider [phone] Amy Mayes NP Unavailable +[phone] Shailesh Dunn MD Unavailable [phone] Sangita Farrar Unavailable +[phone] Reason for Visit * Reason Onset Date Comments Medical Question/Miscellaneous 09/25/2024 Encounter Details Date Type Department Care Team (Late st Contact Info) Description 09/25/2024 Results Follow-Up [facility] Medical Group Family Medicine [address] [place] [address] Alee Elizondo PA [address] [facility] [address] [place] [address] [place] [address] Social History Tobacco Use Types [...] you attend chur ch or bahai services? 1 to 4 times per year 05/30/2024 Do you belong to any clubs o r organizations such as spiritism groups, unions, fraternal or athletic groups, or [...] on file Legal Sex Female 8:04 PM PRODUCTION CHECKER Gender Identity Female 02/15/2020 6:08 PM CDT [...] documented as of this encounter Care Teams Visual Merchandise Manager Relationship Specialty Start Date End Date Alee Elizondo PA [address] [facility] 500 [place] [address] PCP - General Internal Medicine 07/05/23 Sharan Linton MD Referring Physician Gastroenterology 10/31/18 Martha Starks MD Consulting Physician Cardiology 12/24/20 Shama Hines MD 4700 [facility] [address] Consulting Physician Pain Management 01/19/21 Artis Grewal MD [address] [place] [address] Consulting Physician Rheumatology 01/30/21 Amy Mayes NP [address] [facility] [address] [place] [address] 102 [place] [address] Nurse Practitioner Cardiovascular Disease 04/20/24 Shailesh Dunn MD [address] [address] Consulting Physician Pulmonary Disease 04/20/24 Sangita Farrar PA [address] [place] [address] Physician Fabric Separator Operator Rheumatology 05/15/24 documented as of this encounter
--- OUTSIDE RECORDS SUMMARY | 2024-10-02 13:25 | XMS_ITS | Encounter Summary ---
Author Organization [facility] Care Team Providers Care Solar Panel Installer Name Role Phone Alee Elizondo Primary Care Provider + [phone] Sharan Linton MD Unavailable Taisha Gomez MD Unavailable [phone] Parag Soto MD Unavailable [phone] RaziaMartha singh MD Unavailable [phone] Puneet Uribe MD Unavailable [phone] Shama Hines MD Unavailable Artis Grewal MD Unavailable [phone] Harrison Pena RN Unavailable [phone] Nafisa Gregg RN Unavailable [phone] Tho Kelsey MD Primary Care Provider [phone] Alee Elizondo Primary Care Provider + [phone] Amy Mayes NP Unavailable [phone] Shailesh Dunn MD Unavailable [phone] Sangita Farrar Unavailable +[phone] Encounter Details Date Type Department Care Team (Latest Contact Info) Description 12/31/2015 Orders Only [facility] CLINCONV Provider, MD Tania [address] [place] [address] Social History Tobacco Use Types Packs/Day Years Used Date Smoking Tobacco: Never Alcohol Use Standard Drinks/Week Comments No 0 (1 standard drink = 0.6 oz pur e alcohol) Comments Unknown Sex and Gender Information Value Date Recorded Sex Assigned at Not on file Legal Sex Female 8:04 PM RESTAURANT HOSTESS Gender Identity Female 02/15/2020 6:08 PM CDT [...] COVID: Suspected 08/13/2021 08/14/2021 08/14/2021 3:06 AM RESTAURANT HOSTESS COVID: Suspected 08/14/2021 08/14/2021 08/15/2021 3:05 AM RESTAURANT HOSTESS COVID: Suspected 08/14/2021 08/14/2021 08/15/2021 6:25 AM RESTAURANT HOSTESS COVID: Suspected 06/02/2023 06/02/2023 06/02/2023 7:25 PM RESTAURANT HOSTESS COVID: Suspected 07/26/2023 07/26/2023 07/26/2023 3:10 PM RESTAURANT HOSTESS COVID: Suspected 09/25/2024 09/25/2024 09/25/2024 11:03 AM CDT Influenza, adult 09/25/2024 09/25/2024 10/02/2024 3:05 AM CDT documented as of this encounter Care Teams Solar Panel Installer Relationship Specialty Start Date End Date Alee Elizondo PA [address] [place] [address] PCP - General Internal Medicine 8/1/17 12/27/23 Tho Kelsey MD [address] [facility] [address] [address] [facility] [address] [place] [address] PCP - General Family Medicine 06/30/23 07/04/23 Alee Elizondo PA [address] [place] [address] PCP - General Internal Medicine 07/05/23 Sharan Linton MD [address] [place] [address] Referring Physician Gastroenterology 10/31/18 Taisha Gomez MD [address] [place], [place] [id number] Referring Physician Pulmonary Disease 10/31/18 12/23/20 Parag Soto MD [address] [place], [place] [id number] Referring Physician Rheumatology 10/31/18 12/23/20 Martha Starks MD [address] [place] [address] Consulting Physician Cardiology 12/24/20 Puneet Uribe MD [address] [facility] [address] [place] [address] Consulting Physician Rheumatology 12/24/20 01/29/21 Shama Hines MD [address] [facility], [facility] [address] [place] [address] Consulting Physician Pain Management 01/19/21 Artis Grewal MD [address] [place] [address] Consulting Physician Rheumatology 01/30/21 Harrison Pena, JULIUS [address] [place] [address] Geriatric Nurse 05/30/23 09/04/23 Nafisa Gregg, JULIUS [address] [place] [address] [address] [place] [address] Geriatric Nurse 06/06/23 06/12/23 Amy Mayes NP [address] [address] Nurse Practitioner Cardiovascular Disease 04/20/24 Shailesh Dunn MD [address] [facility] [address] [address] Consulting Physician Pulmonary Disease 04/20/24 Sangita Farrar PA [address] [place] [address] Physician Inventory Clerk Rheumatology 05/15/24 documented as of this encounter
--- OUTSIDE RECORDS SUMMARY | 2024-10-02 13:26 | XMS_ITS | Clinical Summary ---
Author Organization [facility] Address [address] [place] [address] Care Team Providers Care Supervisor Stage Carpentry Name Role Phone Unavailable Primary Care Provider [...]
--- OUTSIDE RECORDS SUMMARY | 2024-10-02 13:26 | XMS_ITS | Encounter Summary ---
Author Organization [facility] Healthcare Address [address] [place] [address] Care Team Providers Care Director Product Safety Name Role Phone Sharan Linton MD Unavailable [phone] Martha Starks MD Unavailable [phone] Shama Hines MD Unavailable Artis Grewal MD Unavailable [phone] Alee Elizondo Primary Care Provider [phone] Amy Mayes NP Unavailable [phone] Shailesh Dunn MD Unavailable [phone] Sangita Farrar Unavailable [phone] Reason for Visit * Reason Onset Date Comments Medical Question/Miscellaneous 08/31/2024 Encounter Details Date Type Department Care Team (Late st Contact Info) Description 08/31/2024 Telephone [facility] Medical Group Family Medicine [address] [place] [address] Alee Elizondo PA [address] [facility] [address] [place] [address] Medical Question/Miscellaneous Social History Tobacco Use Types Packs/Day Years Used Date Smoking Tobacco: Never Smokeless Tobacco: Never Comments:Never used Alcohol Use Standard Drinks/Week Comments No 0 (1 standard drink = 0.6 oz pur e alcohol) [facility] Utilities Answer Date Recorded In [...] often do you attend chur ch or restorationism services? 1 to 4 times per year 05/30/2024 Do you belong to any clubs o r organizations such as zoroastrian groups, unions, fraternal or athletic groups, or [...] a long term (including now)? No 05/27/2023 PHQ-9 Answer Date [...] any time in the past 12 m [facility], were you homeless or living [...] on file Legal Sex Female 8:04 PM QUALITY CONTROL COORDINATOR Gender Identity Female 02/15/2020 6:08 PM CDT Sexual Orientation Not on file documented as of this encounter Miscellaneous Notes * Telephone Encounter - Yovana Camacho LPN - 09/03/2024 10:36 AM QUALITY CONTROL COORDINATOR [employer] Medicare insurance does not require referrals. Sent a [employer] message to pt to inform her of this. ITY CONTROL COORDINATOR * Telephone Encounter - Mariya Cassidy - 08/31/2024 1:51 PM CST Medical Question/Miscellaneous Caller???s Concern: Patient just updated their insurance to [facility] Medicare from [employer]. They have a referral already in place for Dr. Katsikas that was placed today. They will need to be updated to [facility] Medicare and faxed to Dr Thao. Fax #: [phone] Does message need to be routed? Yes-Action Needed ITY CONTROL COORDINATOR documented in this encounter Plan of Treatment Not on file documented as of this encounter Visit Diagnoses Not on filedocumented in this encounter Additional Health Concerns Infection Onset Date Last Indicated Resolved Time COVID: Suspected 09/25/2024 09/25/2024 09/25/2024 11:03 AM CDT Influenza, adult 09/25/2024 09/25/2024 10/02/2024 3:05 AM CDT documented as of this encounter Care Teams Director Product Safety Relationship Specialty Start Date End Date Alee Elizondo PA [address] [facility] [address] [place] [address] PCP - General Internal Medicine 07/05/23 Sharan Linton MD Referring Physician Gastroenterology 10/31/18 Martha Starks MD Consulting Physician Cardiology 12/24/20 Shama Hines MD [address] [facility], [facility] [address] [place] [address] Consulting Physician Pain Management 01/19/21 Artis Grewal MD [address] [place] [address] Consulting Physician Rheumatology 01/30/21 Amy Mayes NP [address] [facility] [address] [place] [address] Nurse Practitioner Cardiovascular Disease 04/20/24 Shailesh Dunn MD [address] [facility] [address] [address] Consulting Physician Pulmonary Disease 04/20/24 Sangita Farrar PA [address] [place] [address] Physician Software Qa System Specialist Rheumatology 05/15/24 documented as of this encounter
--- OUTSIDE RECORDS SUMMARY | 2024-10-02 13:26 | XMS_ITS | Clinical Summary ---
Author Organization [facility] Address [address] [facility] [place] [address] Care Team Providers Care Twister Tender Paper Name Role Phone Darvin Harden MD Primary Care Provider [phone] Source Comments [facility],non-owned Affiliates and Associated Physician Practices is amultiple site organization consisting of ambulatory clinics and hospital sitesin [place], [place], [place] and [place]. This disclosure is being madepursuant to the Care Everywhere program and may not contain all information available regarding this patient. Last updated 18.[facility] Allergies Active Allergy Reactions Criticality Noted Date [...] fluticasone propionate (Flonase) 50 MCG/ACT nasal spray [place] 2 (two) sprays into the nose once [...] age to complete this topic Care Teams Twister Tender Paper Relationship Specialty Start Date End Date Darvin Harden MD [address] [place] [address] PCP - General 07/11/19
--- OUTSIDE RECORDS SUMMARY | 2024-10-02 13:26 | XMS_ITS | Encounter Summary ---
Author Organization [facility] Address [address] [place] [address] Phone Care Team Providers Care Cable Stretcher And Tester Name Role Phone Sharan Linton MD Unavailable [phone] Martha Starks MD Unavailable [phone] Shama Hines MD Unavailable Artis Grewal MD Unavailable [phone] Alee Elizondo Primary Care Provider [phone] Amy Mayes NP Unavailable [phone] Shailesh Dunn MD Unavailable [phone] Sangita Farrar Unavailable [phone] Encounter Details Date Type Department Care Team (Late st Contact Info) Description 08/24/2024 Results Follow-Up [facility] [address] [place] [address] Sangita Farrar PA [address] [place] [address] Social History Tobacco Use Types Packs/Day Years Used Date Smoking Tobacco: Never Smokeless Tobacco: Never Comments:Never used Alcohol Use Standard Drinks/Week Comments No 0 (1 standard drink = 0.6 oz pur e alcohol) [facility] Utilities Answer Date Recorded In [...] you attend chur ch or zoroastrian services? 1 to 4 times per year [...] in a correction (including now)? No 05/27/2023 PHQ-9 Answer Date [...] on file Legal Sex Female 8:04 PM WAIST PLEATER Gender Identity Female 02/15/2020 6:08 PM CDT [...] documented as of this encounter Care Teams Cable Stretcher And Tester Relationship Specialty Start Date End Date Alee Elizondo PA [address] [facility] [address] [place] [address] PCP - General Internal Medicine 07/05/23 Sharan Linton MD Referring Physician Gastroenterology 10/31/18 Martha Starks MD Consulting Physician Cardiology 12/24/20 Shama Hines MD [address] [facility] [address] Consulting Physician Pain Management 01/19/21 Artis Grewal MD [address] [place] [address] Consulting Physician Rheumatology 01/30/21 Amy Mayes NP [address] [address] Nurse Practitioner Cardiovascular Disease 04/20/24 Shailesh Dunn MD [address] [facility] [address] [address] Consulting Physician Pulmonary Disease 04/20/24 Sangita Farrar PA [address] [place] [address] Physician Catalyst Concentration Operator Rheumatology 05/15/24 documented as of this encounter
--- OUTSIDE RECORDS SUMMARY | 2024-10-02 13:26 | XMS_ITS | Encounter Summary ---
Author Organization [facility] Healthcare Address [address] [place] [address] Care Team Providers Care Music Teacher Name Role Phone Sharan Linton MD Unavailable [phone] Martha Starks MD Unavailable [phone] Shama Hines MD Unavailable Artis Grewal MD Unavailable [phone] Alee Elizondo Primary Care Provider [phone] Amy Mayes NP Unavailable [phone] Shailesh Dunn MD Unavailable [phone] Sangita Farrar Unavailable [phone] Encounter Details Date Type Department Care Team (Late st Contact Info) Description 09/04/2024 Results Follow-Up [facility] Medical Group Family Medicine [address] [place] [address] Alee Elizondo PA [address] [facility] [address] [place] [address] Social History Tobacco Use Types Packs/Day Years Used Date Smoking Tobacco: Never Smokeless Tobacco: Never Comments:Never used Alcohol Use Standard Drinks/Week Comments No 0 (1 standard drink = 0.6 oz pur e alcohol) [facility] Utilities Answer Date Recorded In the past 12 months has [employer], oil, or water [employer] threatened to shut off services in your [...] often do you attend chur ch or jewish services? 1 to 4 times per year 05/30/2024 Do you belong to any clubs o r organizations such as cheondoism groups, unions, fraternal or athletic groups, or [...] in a longterm (including now)? No 05/27/2023 PHQ-9 Answer Date [...] time in the past 12 m [facility], were you homeless or living in a longterm (including now)? No 05/30/2024 Personal Safety Answer Date Recorded Have you ever been in or are you currently in a harmful physical or emotional relationship or is someone making you feel afraid or unsafe? Denies 05/30/2024 Comments No Sex and Gender Information Value Date Recorded Sex Assigned at Not on file Legal Sex Female 8:04 PM HOUSEKEEPING MANAGER Gender Identity Female 02/15/2020 6:08 PM [...] documented as of this encounter Care Teams Music Teacher Relationship Specialty [place] [address] [place] [address] PCP - General Internal Medicine 07/05/23 Sharan Linton MD Referring Physician Gastroenterology 10/31/18 Martha Starks MD Consulting Physician Cardiology 12/24/20 Shama Hines MD [address] [facility], [address] [address] Consulting Physician Pain Management 01/19/21 Artis Grewal MD [address] [place] [address] Consulting Physician Rheumatology 01/30/21 Amy Mayes NP [address] [address] Nurse Practitioner Cardiovascular Disease 04/20/24 Shailesh Dunn MD [address] [address] Consulting Physician Pulmonary Disease 04/20/24 Sangita Farrar PA [address] [place] [address] Physician Watch Adjuster Rheumatology 05/15/24 documented as of this encounter
--- OUTSIDE RECORDS SUMMARY | 2024-10-02 13:26 | XMS_ITS | Referral Summary ---
Author Organization [facility] [address] Address [address] [place] [address] Care Team Providers Care Property Insurance Inspector Name Role Phone Sharan Linton MD Unavailable [phone] Martha Starks MD Unavailable [phone] Shama Hines MD Unavailable Artis Grewal MD Unavailable [phone] Alee Elizondo Primary Care Provider [phone] Amy Mayes NP Unavailable [phone] Shailesh Dunn MD Unavailable [phone] Sangita Farrar Unavailable [phone] Encounters Date Type Department Care Team Description 09/26/2024 Orders Only [facility] Family Medicine [address] [place] [address] [place] [phone] Alee Elizondo PA Breast cancer screening by mammogram (Primary Dx) 09/25/2024 Results Follow-Up [facility] Medicine [address] [place] [address] [place] [phone] Alee Elizondo PA 09/25/2024 11:00 AM CDT Office Visit [facility] Care at [address] [address] Jessica Collins NP Influenza A (Primary Dx); Acute cough 09/20/2024 Telephone [facility] Orthopedics and Sports Medicine [facility] [address] [place] [phone] Michael Motta MD med clarification 09/20/2024 8:00 AM CDT Office Visit [facility] Cardiology [address] [place] [address] Devika Marin MD Venous insufficiency (chronic) (peripheral) (Primary Dx); Mixed hyperlipidemia 09/14/[address] [address] Codi Branham 09/13/2024 1:44 PM CDT - 09/13/2024 11:59 PM CDT Hospital Encounter [facility] Diag Imaging [address] [place] [address] Chronic pain of right knee Discharge Disposition: Discharge to home or self care 09/13/2024 2:45 PM CDT Office Visit [facility] Orthopedics and Sports Medicine [facility] [address] [place] [phone] Michael Motta MD Chronic pain of right knee (Primary Dx); History of total knee arthroplasty, right 09/04/2024 Results Follow-Up [address] [place] [address] Alee Elizondo PA 08/31/2024 Telephone [facility] Medicine [address] [place] [address] Road [address] [place] [address] Alee Elizondo PA Medical Question/Miscellaneou s 08/31/2024 Orders Only [address] [place] [address] ProviderTania MD 08/29/2024 Nurse Triage [address] [place] [address] Alee Elizondo PA 08/29/2024 Telephone [facility] Pulmonary [address] [address] Shailesh Dunn MD Med Refill (Ropinirol HCL 0.5MG tab) 08/24/2024 Results Follow-Up [address] [address] Sangita Farrar PA 08/23/2024 Orders Only [facility] Health Information Management [address] [place] [address] Alee Elizondo PA 08/23/[address] [address] Sangita Farrar PA Orencia Approved 08/23/2024 11:30 AM KILN FEEDER Office Visit [address] [address] Sangita Farrar PA 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) (Primary Dx); Primary osteoarthritis involving multiple joints; Encounter for medication monitoring 08/21/[address] [address] Codi Branham 08/02/2024 Telephone [facility] Pulmonary [address] [address] Shailesh Dunn MD Orders Only 08/02/2024 11:45 AM KILN FEEDER Office Visit [facility] Pulmonary [address] [address] Magaly Snider NP OWEN on CPAP (Primary Dx); OWEN (obstructive sleep apnea); PLMD (periodic limb movement disorder) 08/01/2024 Orders Only [facility] Family Medicine [address] [facility] [address] [place] [address] Alee Elizondo PA Pre-diabetes (Primary Dx); Mixed hyperlipidemia; Fatigue, unspecified type 07/30/2024 9:00 AM KILN FEEDER Office Visit [facility] [address] [place] [phone] Sangita Farrar PA 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) (Primary Dx); Primary osteoarthritis involving multiple joints; Encounter for medication monitoring 07/24/2024 1:27 PM KILN FEEDER - 07/24/2024 11:59 PM KILN FEEDER Hospital Encounter [facility] Diag Imaging [address] [place] [address] Status post total knee replacement using cement, right Discharge Disposition: Discharge to home or self care 07/24/2024 Telephone [facility] Family Medicine [address] [facility] [address] [place] [address] Alee Elizondo PA Referral Request (/) 07/24/2024 2:00 PM KILN FEEDER Office Visit [facility] Orthopedics and Sports Medicine [address] [place] [address] [address] [place] [address] Michael Motta MD Status post total knee replacement using cement, right (Primary Dx) 07/12/2024 Telephone [facility] Orthopedics and Sports Medicine [address] [place] [address] [address] [place] [address] Michael Motta MD ret call from Last [...] 05/07/20 Assessment & Plan (05/07/2024 8:57 PM KILN FEEDER): I have examined this patient and ordered [...] She has had evaluation by Urology at [facility] and has been told there is probably [...] 08/03/2023 Assessment & Plan (05/07/2024 8:56 PM KILN FEEDER): Discussed the patient's BMI. The BMI is [...] provided. Assessment & Plan (09/06/2023 9:38 AM KILN FEEDER): Discussed the patient's BMI. The BMI is above average. BMI management plan is completed. BMI Follow-up includes: nutrition counseling, exercise counseling and education provided. Patient has an obesity-related condition (not limited to: hypertension, obstructive sleep apnea, osteoarthritis, hyperlipidemia, diabetes, etc.). Therefore, morbid obesity may be documented for patients with a BMI between 35.00-39.99. Assessment & Plan (08/07/2023 7:51 PM KILN FEEDER): Discussed the patient's BMI. The BMI is above average. BMI management plan is completed. BMI Follow-up includes: nutrition counseling, exercise counseling and education provided. Patient has an obesity-related condition (not limited to: hypertension, obstructive sleep apnea, osteoarthritis, hyperlipidemia, diabetes, etc.). Therefore, morbid obesity may be documented for patients with a BMI between 35.00-39.99. Assessment & Plan (08/03/2023 7:45 AM KILN FEEDER): Discussed the patient's BMI. The BMI is above average. BMI management plan is completed. BMI Follow-up includes: nutrition counseling, exercise counseling and education provided. Primary osteoarthritis of right knee 07/08/2023 Assessment & Plan (05/07/2024 8:56 PM KILN FEEDER): Patient has arthritis in the right knee. Planning a total knee replacement with Dr. Alexus Motta on May 30 Assessment & Plan (08/03/2023 8:28 AM KILN FEEDER): Continue per ortho. She is seeing some improvement but it is difficult to know if the knee is rheumatoid versus osteo versus other etiology. Will await recommendations from JACQUI Raya but definitely encouraged her to become active as soon as possible. Status post total knee replacement using cement, right 05/19/2023 Assessment & Plan (06/02/2023 4:56 PM KILN FEEDER): Status post total knee replacement with Dr. Ge Sexton 04 May. She has just been released from rehab following up for her TCM visit. She appears to have an area of cellulitis at the incision site. She is also complaining of increased pain. Will check CBC CMP and inflammatory markers along with an x-ray. She plans to go to [facility] for the workup. Will follow up with [...] provided. Assessment & Plan (06/02/2023 8:27 AM KILN FEEDER): Discussed the patients BMI: The BMI is [...] 12/20/2022 Assessment & Plan (05/07/2024 8:55 PM KILN FEEDER): Patient is on medication for her rheumatoid arthritis managed by [facility] Assessment & Plan (01/22/2024 8:13 PM CDT): Medications from [facility] contribute to her immunosuppressive state. Assessment & Plan (09/06/2023 9:41 AM KILN FEEDER): Medications are managed by [facility] for her rheumatoid arthritis Assessment & Plan (04/06/2023 7:44 PM CDT): Managed by [facility]. Currently on Plaquenil methotrexate Orencia folic [...] She has had evaluation by Urology at [facility] and has been told there is probably [...] capacity. Assessment & Plan (09/06/2023 9:41 AM KILN FEEDER): Continue per . She did not tolerate [...] Pate. Assessment & Plan (07/18/2022 10:20 AM KILN FEEDER): CT revealed pelvic lipomatosis that is compressing [...] 02/11/2022 Assessment & Plan (09/06/2023 9:41 AM KILN FEEDER): No change. Dysfunction of both eustachian tubes 02/11/2022 Myalgia, lower leg 01/11/2022 PLMD (periodic limb movement disorder) Assessment & Plan (08/02/2024 11:49 AM KILN FEEDER): Asymptomatic Assessment & Plan (06/22/2022 10:31 AM KILN FEEDER): Will continue Requip 1 mg nightly Assessment [...] bedtime. Assessment & Plan (07/13/2021 11:25 AM KILN FEEDER): Due to the patient stating that she [...] 06/04/2020 Assessment & Plan (08/23/2024 10:16 AM KILN FEEDER): Hepatitis negative 06/2020 Tspot negative 06/2020 Continue routine lab monitoring Maintain routine eye exams throughout the duration of taking hydroxychloroquine Assessment & Plan (07/30/2024 8:24 AM KILN FEEDER): Hepatitis negative 06/2020 Tspot negative 06/2020 Continue [...] hydroxychloroquine Assessment & Plan (09/01/2023 8:34 AM KILN FEEDER): Hepatitis negative 06/2020 Tspot negative 06/2020 Continue routine lab monitoring Maintain routine eye exams throughout the duration of taking hydroxychloroquine Assessment & Plan (06/29/2023 2:19 PM KILN FEEDER): Hepatitis negative 06/2020 Tspot negative 06/2020 Continue [...] hydroxychloroquine Assessment & Plan (07/14/2022 2:58 PM KILN FEEDER): Hepatitis negative 06/2020 Tspot negative 06/2020 Continue routine lab monitoring Maintain routine eye exams throughout the duration of taking hydroxychloroquine Assessment & Plan (06/03/2022 9:58 AM KILN FEEDER): Hepatitis negative 06/2020 Tspot negative 06/2020 Continue [...] hydroxychloroquine Assessment & Plan (09/03/2021 8:29 AM KILN FEEDER): Hepatitis negative 06/2020 Tspot negative 06/2020 Continue routine lab monitoring Maintain routine eye exams throughout the duration of taking hydroxychloroquine Assessment & Plan (06/03/2021 4:17 PM KILN FEEDER): Hepatitis negative 06/2020 Tspot negative 06/2020 Continue [...] hydroxychloroquine Assessment & Plan (09/02/2020 1:16 PM KILN FEEDER): Hepatitis negative 06/2020 Tspot negative 06/2020 Continue routine lab monitoring Maintain routine eye exams throughout the duration of taking hydroxychloroquine Assessment & Plan (07/09/2020 12:23 PM KILN FEEDER): Hepatitis negative 06/2020 Tspot negative 06/2020 Continue routine lab monitoring Maintain routine eye exams throughout the duration of taking hydroxychloroquine Drug-induced constipation 08/13/2019 Assessment & Plan (05/07/2024 8:54 PM KILN FEEDER): Patient with chronic constipation. Has been on [...] linzess Assessment & Plan (08/13/2019 8:57 AM KILN FEEDER): On Movantik with Dr. Soto Herpes zoster without complication 12/13/2018 Assessment & Plan (12/23/2018 10:18 PM CDT): Valtex to pharmacy. She has had shingles in the past. Pre-diabetes 10/31/2018 Assessment & Plan (05/07/2024 8:55 PM KILN FEEDER): Pre-diabetes/hyperglycemia is a precursor to Dm. Stressed [...] diabetes. Assessment & Plan (09/06/2023 9:40 AM KILN FEEDER): Pre-diabetes/hyperglycemia is a precursor to Dm. Stressed [...] diabetes. Assessment & Plan (09/11/2021 11:22 PM KILN FEEDER): Pre-diabetes/hyperglycemia is a precursor to Dm. Stressed importance of working on diet (decrease your simple sugars and one carbohydrate with each meal) and increase you exercise to achieve weight loss and this will help prevent you from progressing to diabetes. Assessment & Plan (05/29/2021 8:18 PM KILN FEEDER): Pre-diabetes/hyperglycemia is a precursor to Dm. Stressed [...] diabetes. Assessment & Plan (08/31/2020 9:34 AM KILN FEEDER): Pre-diabetes is a precursor to Dm. Stressed [...] diabetes. Assessment & Plan (08/13/2019 9:00 AM KILN FEEDER): This is a significant, separately identifiable problem [...] 10/31/2018 Assessment & Plan (05/07/2024 8:54 PM KILN FEEDER): Depression symptoms are stable with Wellbutrin XL 150 Cymbalta 60 b.i.d. Assessment & Plan (04/21/2024 8:50 PM CDT): Depression symptoms are stable with the Wellbutrin XL 150 and Cymbalta 60 b.i.d. Assessment & Plan (01/22/2024 8:11 PM CDT): Depression symptoms are stable with Wellbutrin and Cymbalta Assessment & Plan (09/06/2023 9:40 AM KILN FEEDER): Depression is stable with Wellbutrin and Cymbalta Assessment & Plan (08/03/2023 8:31 AM KILN FEEDER): Stable with Cymbalta 60 and Wellbutrin XL [...] Cymbalta Assessment & Plan (09/11/2021 11:26 PM KILN FEEDER): Continue Wellbutrin and Cymbalta Assessment & Plan (05/29/2021 8:22 PM KILN FEEDER): Continue Wellbutrin and Cymbalta Assessment & Plan (05/24/2021 10:39 AM KILN FEEDER): Continue Wellbutrin and Cymbalta Assessment & Plan (12/24/2020 9:07 AM CDT): Continue wellbutrin and cymbalta Assessment & Plan (08/31/2020 9:35 AM KILN FEEDER): Continue wellbutrin and cymbalta Assessment & Plan (02/18/2020 9:47 PM CDT): Stable with the Cymbalata Assessment & Plan (08/13/2019 8:59 AM KILN FEEDER): Stable with Cymbalta and Wellbutrin Assessment & [...] regimen. Med list updated to reflect the [id number] one daily and Prozac 40mg. Mixed hyperlipidemia 03/29/2018 Assessment & Plan (05/07/2024 8:54 PM KILN FEEDER): Encouraged patient to follow low fat/low chol [...] statin Assessment & Plan (09/06/2023 9:42 AM KILN FEEDER): Encouraged patient to follow low fat/low chol [...] statin Assessment & Plan (09/11/2021 11:26 PM KILN FEEDER): Encouraged patient to follow low fat/low chol diet like the Mediterranean diet. Increase good fats in the diet. Increase exercise. Monitor labs as needed. Continue statin Assessment & Plan (05/29/2021 8:22 PM KILN FEEDER): Encouraged patient to follow fat/low chol diet like the Mediterranean diet. Increase good fats in the diet. Increase exercise. Monitor labs as needed. Continue statin Assessment & Plan (05/24/2021 10:39 AM KILN FEEDER): Encouraged patient to follow fat/low chol diet like the Mediterranean diet. Increase good fats in the diet. Increase exercise. Monitor labs as needed. Continue statin Assessment & Plan (12/24/2020 9:07 AM CDT): Encouraged patient to follow fat/low chol diet like the Mediterranean diet. Increase good fats in the diet. Increase exercise. Monitor labs as needed. Continue statin Assessment & Plan (08/31/2020 9:34 AM KILN FEEDER): Encouraged patient to follow fat/low chol diet like the Mediterranean diet. Increase good fats in the diet. Increase exercise. Monitor labs as needed. Continue statin Assessment & Plan (02/18/2020 9:46 PM CDT): Encouraged patient to continue low fat/low chol diet. Continue exercise. Increase good fats in the diet. Monitor labs as needed. Assessment & Plan (08/13/2019 8:59 AM KILN FEEDER): Encouraged patient to continue low fat/low chol [...] future Assessment & Plan (09/06/2023 9:40 AM KILN FEEDER): Continue PPI Assessment & Plan (04/06/2023 7:36 PM CDT): Continue PPI p.r.n. Assessment & Plan (01/20/2023 8:13 PM CDT): Continue PPI Assessment & Plan (09/12/2022 6:13 PM CDT): Continue PPI p.r.n. Assessment & Plan (06/03/2022 3:40 PM KILN FEEDER): Pyrosis poorly controlled on Nexium. Pt has [...] PPI Assessment & Plan (09/11/2021 11:26 PM KILN FEEDER): Continue PPI Assessment & Plan (12/24/2020 9:05 AM CDT): Continue PPI Assessment & Plan (02/18/2020 9:45 PM CDT): Continue PPI. Saw Dr. Linton for increased GERD sxs. If persist, encouraged to followup again with Dr. Linton. Assessment & Plan (08/13/2019 8:58 AM KILN FEEDER): Stable with PPI Assessment & Plan (04/29/2019 [...] exertion) Assessment & Plan (06/22/2022 10:30 AM KILN FEEDER): Patient is not currently using inhalers. She [...] 10/14/2015 Assessment & Plan (08/02/2024 11:49 AM KILN FEEDER): Due to the patient stating the pressure [...] readjusted. She denied need for supplies. DME [facility] patient Assessment & Plan (05/07/2024 8:55 PM KILN FEEDER): Continue with CPAP. Assessment & Plan (04/21/2024 8:49 PM CDT): Continue per Dr. Dunn. Has all her needed supplies for CPAP which she is using every night. Continue with Requip 0.5 mg HS for restless leg Assessment & Plan (01/22/2024 8:08 PM CDT): Continue CPAP per Dr. Dunn Assessment & Plan (09/06/2023 9:40 AM KILN FEEDER): Continue CPAP Assessment & Plan (06/21/2023 10:14 AM KILN FEEDER): Patient continue to wear her CPAP at [...] CPAP Assessment & Plan (06/22/2022 10:31 AM KILN FEEDER): Will continue CPAP therapy at an auto titrating range of 7-20 cm water pressure. Denied need for supplies. DME [employer] patient Assessment & Plan (05/02/2022 9:15 PM [...] water pressure. Patient denied need for supplies. [employer] [facility]. Patient is benefitting CPAP Assessment & Plan (09/11/2021 11:22 PM KILN FEEDER): Continue CPAP. Patient has all needed supplies. Assessment & Plan (07/13/2021 11:27 AM KILN FEEDER): Due to the patient stating she does not have enough pressure in her machine, I have increased the pressure to 13 cm water pressure. The patient denied need for for supplies. DME company [facility]. Have also ordered a new smart card set at 13 cm water pressure. Benefitting from CPAP therapy Assessment & Plan (05/29/2021 8:14 PM KILN FEEDER): Continue CPAP. Assessment & Plan (02/17/2021 11:09 AM CDT): The patient continues to be compliant with her CPAP at 8 cm water pressure. She has developed worsening daytime hypersomnia. She also has morning headaches and dry mouth. I have recommended proceeding with a CPAP titration study starting at 8 cm water pressure. Her DME is [facility]. Assessment & Plan (12/24/2020 9:04 AM CDT): Continue CPAP. Would like to see Pulm/sleep at [facility] as difficulty getting in consistently at [place] and most of her care is now [facility] Assessment & Plan (02/18/2020 9:44 PM CDT): Continue CPAP Assessment & Plan (08/13/2019 8:46 AM KILN FEEDER): Using the CPAP. Has equipment as needed. [...] noted. Assessment & Plan (08/23/2024 10:16 AM KILN FEEDER): 02/2021 XR L knee with mild to moderate OA, now s/p B TKA. Following with ortho as planned. Assessment & Plan (07/30/2024 11:23 AM KILN FEEDER): 02/2021 XR L knee with mild to [...] March. Assessment & Plan (09/01/2023 3:42 PM KILN FEEDER): 02/2021 XR L knee with mild to moderate OA, R knee negative. Had injections with ortho without benefit, now s/p L TKA. Assessment & Plan (06/30/2023 12:46 PM KILN FEEDER): 02/2021 XR L knee with mild to [...] g/d. Assessment & Plan (07/15/2022 1:41 PM KILN FEEDER): 02/2021 XR L knee with mild to moderate OA, R knee negative. Had injections with ortho with benefit. Unable to afford PT. Can continue Tylenol Arthritis, not to exceed 4 g/d. Assessment & Plan (06/03/2022 9:58 AM KILN FEEDER): 02/2021 XR L knee with mild to [...] evaluation. Assessment & Plan (09/03/2021 11:27 AM KILN FEEDER): XR L knee with mild to moderate [...] able. Assessment & Plan (06/04/2021 10:27 AM KILN FEEDER): XR L knee with mild to moderate [...] above. Assessment & Plan (09/03/2020 12:23 PM KILN FEEDER): 10/27/2017 XR L knee: mild tricompartmental OA. Will continue meloxicam as above. Assessment & Plan (07/09/2020 12:24 PM KILN FEEDER): 10/27/2017 XR L knee: mild tricompartmental OA. [...] examination. Assessment & Plan (08/23/2024 12:54 PM KILN FEEDER): Moderate cdai with report of increasing pain, [...] needed. Assessment & Plan (07/30/2024 11:22 AM KILN FEEDER): Moderate cdai with report of increased morning [...] phone visit with labs near her home ([facility] in [place]), but the following month will need to plan for an in person visit. She expressed understanding and agreement with this plan. Continue methotrexate 20 mg weekly, folic acid 2 mg daily, and hydroxychloroquine 200 mg BID. Labs today as below. Assessment & Plan (05/07/2024 8:55 PM KILN FEEDER): Managed by [facility]. Currently on Plaquenil and methotrexate and Orencia folic acid Mobic and gabapentin. Stressed she needs to be in contact with her diamond grader on when and which medicines to stop for the surgery. Assessment & Plan (04/21/2024 8:49 PM CDT): Continue per [facility]. They currently manage [...] Plan (01/22/2024 8:17 PM CDT): Continue per [facility] as they manage her condition. Assessment & Plan (11/24/2023 9:58 AM CDT): Low cdai without inflammatory sounding pain. Will continue methotrexate 20 mg weekly, folic acid 2 mg daily, hydroxychloroquine 200 mg BID, and Orencia and monitor. Labs today as below. Follow up in 3 months or sooner as needed. Assessment & Plan (09/06/2023 9:42 AM KILN FEEDER): Rheumatoid arthritis is managed by [facility]. Currently on Plaquenil methotrexate Orencia and folic acid Assessment & Plan (09/01/2023 3:39 PM KILN FEEDER): Overall stable without notable synovitis and no inflammatory sounding pain. Will continue methotrexate 20 mg weekly, folic acid 2 mg daily, hydroxychloroquine 200 mg BID, and Orencia and monitor. Labs today as below. Follow up in 3 months or sooner as needed. Assessment & Plan (08/03/2023 8:28 AM KILN FEEDER): Continue with rheumatology. Assessment & Plan (06/30/2023 12:43 PM KILN FEEDER): Overall stable without notable synovitis and no inflammatory sounding pain. Will continue methotrexate 20 mg weekly, folic acid 2 mg daily, hydroxychloroquine 200 mg BID, and Orencia and monitor. Labs today as below. Assessment & Plan (06/02/2023 4:49 PM KILN FEEDER): Continue per Rheumatology Assessment & Plan (04/06/2023 7:35 PM CDT): Continue per Rheumatology. She has been in discussion with them on what medications to stop prior to her knee surgery. She states she was told to take all of her medicines accept the Orencia. Assessment & Plan (01/20/2023 8:12 PM CDT): Continue per Rheumatology [facility] Assessment & Plan (01/13/2023 3:42 [...] Plan (09/12/2022 6:06 PM CDT): Continue with [facility] Assessment & Plan (07/15/2022 1:41 PM KILN FEEDER): Low cdai. Significantly improved after IM triamcinolone [...] needed. Assessment & Plan (06/03/2022 3:37 PM KILN FEEDER): High cdai. Previously felt well controlled with current regimen. Due to burden of disease will give patient a triamcinolone injection. Patient made aware of SE of steroids including but not limited to HTN, increased blood glucose, cataracts, glaucoma, AVN, and osteoporosis with supervisor intermediates use. Should she flare again shortly after [...] (01/23/2022 4:57 PM CDT): Continue management per [facility] Assessment & Plan (12/07/2021 9:02 AM CDT): Low cdai. Denies inflammatory sounding joint pain. Continue methotrexate 25 mg weekly, folic acid to 2 mg daily, Rinvoq 15 mg daily, hydroxychloroquine 200 mg BID, and cyclobenzaprine 5 mg qhs and monitor. Labs today as below. Plan for follow up in 3 months or sooner as needed. Assessment & Plan (09/11/2021 11:14 PM KILN FEEDER): Continue per [facility] Assessment & Plan (09/03/2021 11:25 AM KILN FEEDER): cdai = 12. Pt suspects increased joint [...] needed. Assessment & Plan (06/04/2021 10:25 AM KILN FEEDER): Low cdai. Denies inflammatory sounding pain at present. Will plan to continue methotrexate 25 mg weekly, folic acid to 2 mg daily, Rinvoq 15 mg daily, hydroxychloroquine 200 mg BID, and cyclobenzaprine 5 mg qhs and monitor. Labs today as below. Plan for follow up in 3 months or sooner as needed. Assessment & Plan (05/31/2021 9:15 PM KILN FEEDER): Continue per Rheumatology Assessment & Plan (05/29/2021 8:13 PM KILN FEEDER): Continue per Rheumatology. Currently on Plaquenil methotrexate and folic acid. Assessment & Plan (05/24/2021 10:38 AM KILN FEEDER): Continue per Rheumatology Assessment & Plan (03/05/2021 [...] needed. Assessment & Plan (09/03/2020 12:22 PM KILN FEEDER): Low cdai. Continues to feel improved with [...] needed. Assessment & Plan (08/31/2020 9:34 AM KILN FEEDER): Continue per [facility] Assessment & Plan (07/09/2020 12:22 PM KILN FEEDER): 64yoF with a h/o seropositive RA diagnosed [...] time. Assessment & Plan (06/04/2020 11:14 AM KILN FEEDER): 64yoF with a h/o seropositive RA diagnosed [...] needed. Assessment & Plan (05/14/2020 9:33 PM KILN FEEDER): Refer to new Auditor Appraiser as Dr. Soto has . Assessment & Plan (02/18/2020 9:46 PM CDT): Continue per Rheum Assessment & Plan (08/13/2019 8:59 AM KILN FEEDER): Continue per Dr. Soto Assessment & Plan [...] responding to Reclast. Forteo was tried by [facility] and she could [...] of her osteoporosis, recommended evaluation by the [facility], unfortunately their first available appt was in November 2024. Recommended today that she check with [facility] Osteoporosis center (at [facility]) to see how far out they are scheduling new patients, though she does not like this option due to distance from her house. Assessment & Plan (09/06/2023 9:40 AM KILN FEEDER): Managed by [facility]. Per patient they are making a referral to bone metabolism at [facility] she has not seen significant improvement with the Forteo or the Reclast. Assessment & Plan (09/01/2023 3:43 PM KILN FEEDER): DEXA: Lspine BMD 0.809 Tscore -2.2, L [...] of her osteoporosis, recommend evaluation by the [facility], provided contact info for Dr. Castillo. Pt in agreement with plan. Assessment & Plan (06/30/2023 12:49 PM KILN FEEDER): DEXA: Lspine BMD 0.809 Tscore -2.2, L [...] PM CDT): Continue to monitor. Managed by [facility]. Patient is on Reclast calcium vitamin-D [...] exercise Assessment & Plan (07/15/2022 1:42 PM KILN FEEDER): 01/27/2021 DEXA: Lspine -1.8, L femoral neck -1.9, L total hip -1.2, R femoral neck -2.3, R total hip -1.0, FRAX major 32% and hip 7%. Received Reclast 07/2021. Continue yearly Reclast, scheduled for 07/22 Assessment & Plan (06/03/2022 3:38 PM KILN FEEDER): 01/27/2021 DEXA: Lspine -1.8, L femoral neck [...] Plan (01/23/2022 5:02 PM CDT): Managed by [facility] currently on Reclast calcium and vitamin-D Assessment & Plan (12/07/2021 9:04 AM CDT): 01/27/2021 DEXA: Lspine -1.8, L femoral neck -1.9, L total hip -1.2, R femoral neck -2.3, R total hip -1.0, FRAX major 32% and hip 7%. Received Reclast 07/2021. Continue yearly Reclast. Assessment & Plan (09/03/2021 11:26 AM KILN FEEDER): 01/27/2021 DEXA: Lspine -1.8, L femoral neck -1.9, L total hip -1.2, R femoral neck -2.3, R total hip -1.0, FRAX major 32% and hip 7%. Received Reclast 07/2021. Continue yearly reclast and daily vitamin D-calcium supplement. Assessment & Plan (06/04/2021 10:27 AM KILN FEEDER): 01/27/2021 DEXA: Lspine -1.8, L femoral neck [...] order provided today, she will schedule at [facility] Assessment & Plan (12/24/2020 9:06 AM CDT): Continue Reclast thru Rheum Continue calcium, vitD and exercise Assessment & Plan (12/03/2020 10:45 AM CDT): Vitamin D level was 68. Received Reclast 07/09/2020. Last DEXA per available records was 01/31/2019, due this summer - order provided today, she will schedule at [facility] Assessment & Plan (09/03/2020 12:23 PM KILN FEEDER): Vitamin D level was 68. Received Reclast 07/09/2020. Last DEXA per available records was 01/31/2019, due this summer. Assessment & Plan (07/09/2020 12:23 PM KILN FEEDER): Overdue for Reclast, last infusion was 03/28/2019, will receive infusion today. Vitamin D level was 68 Last DEXA per available records was 01/31/2019 Assessment & Plan (06/04/2020 11:15 AM KILN FEEDER): Overdue for Reclast, last infusion was 03/28/2019, will check benefits. Recheck vitamin D level now. Last DEXA per available records was 01/31/2019 Assessment & Plan (02/18/2020 9:46 PM CDT): Calcium, vit D and exercise. Continue to monitor DXA Assessment & Plan (08/13/2019 8:58 AM KILN FEEDER): Continue with Calcium, Vit D and Exercise. [...] Krishnamurthy. 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 Daniels Stressed importance of very close follow-up BMI 37.0-37.9, adult 09/06/2023 024 Assessment & Plan (10/13/2023 7:38 AM CDT): Discussed the patient's BMI. The BMI is above average. BMI management plan is completed. BMI Follow-up includes: nutrition counseling, exercise counseling and education provided. Assessment & Plan (09/06/2023 9:42 AM KILN FEEDER): Discussed the patient's BMI. The BMI is above average. BMI management plan is completed. BMI Follow-up includes: nutrition counseling, exercise counseling and education provided. Hyperglycemia 09/06/2023 09/06/2023 Positive depression screening 09/06/2023 09/06/2023 Annual physical exam 09/06/2023 024 Assessment & Plan (09/06/2023 9:43 AM KILN FEEDER): Encouraged healthy lifestyle, good nutrition and exercise. Encouraged Calcium and Vitamin D and weight bearing exercise for bone health. Reviewed immunizations Reviewed age appropirate screenings. Right knee pain 08/09/2023 09/06/2023 Sinus congestion 08/07/2023 09/06/2023 Assessment & Plan (08/07/2023 7:54 PM KILN FEEDER): Persistent sinusitis symptoms along with cough. Will start doxy b.i.d.. Start antihistamine (Claritin OR Zyrtec), Mucinex 12hour and Steroid nasal spray (Flonase). Push fluids. Rest. Supportive care. If sxs worsen or don\'t improve, pt is to followup in the office. Acute cough 08/07/2023 01/22/2024 Assessment & Plan (08/07/2023 7:55 PM KILN FEEDER): Persistent sinusitis symptoms along with cough. Will start doxy b.i.d.. Start antihistamine (Claritin OR Zyrtec), Mucinex 12hour and Steroid nasal spray (Flonase). Push fluids. Rest. Supportive care. If sxs worsen or don\'t improve, pt is to followup in the office. BMI 35.0-35.9,adult 08/03/2023 09/06/19 Assessment & Plan (08/07/2023 7:51 PM KILN FEEDER): Discussed the patient's BMI. The BMI is above average. BMI management plan is completed. BMI Follow-up includes: nutrition counseling, exercise counseling and education provided. Assessment & Plan (08/03/2023 8:29 AM KILN FEEDER): Discussed the patient's BMI. The BMI is [...] 01/22/2024 Assessment & Plan (06/02/2023 4:57 PM KILN FEEDER): Later in the day received critical lab call for a CO2 value at 42. My staff contacted the patient and she was instructed to go to the ER for further evaluation to determine underlying cause. She states throughout the day she has noticed a little bit more shortness of breath. She plans to have her brother drive her to [employer]. Charge nurse was notified of the arrival [...] surgery. Will defer cardiac clearance to her employee development director. Her chronic medical conditions are stable. [facility] as instructed her to hold the [...] Dr. Ge Sexton on May 04 at [facility]. Need for vaccination for Strep pneumoniae [...] symptoms worsen or do not respond to yauf-cnh-ikyepyd allergy medicines within the next week she may call and will consider antibiotic. Left knee pain 09/13/2022 09/06/2023 BMI 39.0-39.9,adult 08/23/2022 11/09/19 Assessment & Plan (10/25/2022 3:32 PM CDT): Discussed the patient's BMI. The BMI is above average. BMI management plan is completed. BMI Follow-up includes: nutrition counseling, exercise counseling and education provided. Assessment & Plan (08/23/2022 2:19 PM KILN FEEDER): Discussed the patient's BMI. The BMI is [...] plans Assessment & Plan (07/18/2022 10:20 AM KILN FEEDER): CT revealed pelvic lipomatosis that is compressing [...] 12/20/2022 Assessment & Plan (07/18/2022 10:21 AM KILN FEEDER): CT revealed pelvic lipomatosis that is compressing [...] plan, Assessment & Plan (07/08/2022 12:33 PM KILN FEEDER): Patient has had dysuria. She was started [...] STAT abd/pelvis with and without contrast at [place]. Check labs STAT. Acute right flank pain 07/08/202204/06 Assessment & Plan (07/18/2022 10:21 AM KILN FEEDER): CT revealed pelvic lipomatosis that is compressing [...] plan, Assessment & Plan (07/08/2022 5:58 PM KILN FEEDER): Images from the original note were not [...] STAT abd/pelvis with and without contrast at [place]. Check labs STAT. STAT CT Abd/pelvis without [...] 09/06/2023 Assessment & Plan (07/08/2022 12:33 PM KILN FEEDER): Patient has had dysuria. She was started [...] STAT. Assessment & Plan (07/06/2022 8:50 AM KILN FEEDER): Pt presents with dysuria. Urine dip completed. [...] 35.00-39.99. Assessment & Plan (07/18/2022 10:23 AM KILN FEEDER): Discussed the patient's BMI. The BMI is above average. BMI management plan is completed. BMI Follow-up includes: nutrition counseling, exercise counseling and education provided. Assessment & Plan (07/08/2022 12:30 PM KILN FEEDER): Discussed the patient's BMI. The BMI is [...] She has received multiple injections from her diamond grader regarding her knee but yesterday when she [...] 01/23/2022 Assessment & Plan (09/11/2021 11:28 PM KILN FEEDER): Patient has never had a full skin exam. She has quite a few lesions scattered and would benefit from a full exam. Will make referral Annual physical exam 09/11/2021 022 Assessment & Plan (09/11/2021 11:28 PM KILN FEEDER): Encouraged healthy lifestyle, good nutrition and exercise. Encouraged Calcium and Vitamin D and weight bearing exercise for bone health. Reviewed immunizations Reviewed age appropirate screenings. Cough 08/13/2021 01/23/2022 Assessment & Plan (08/13/2021 3:43 PM KILN FEEDER): Patient to presume positive COVID/FLU until results are available and plan to self isolate for up to 10 days from the onset of sxs. Check COVID/FLU test thru [facility] collection site in [place]. Let pt know the newest CDC recommendations [...] future. Assessment & Plan (07/13/2021 11:28 AM KILN FEEDER): I have ordered the patient Claritin 10 [...] provided. Assessment & Plan (09/11/2021 11:27 PM KILN FEEDER): Obesity is unchanged. Discussed the patient's BMI. The BMI is above average. BMI management plan is completed. BMI Follow-up includes: nutrition counseling, exercise counseling and education provided. Assessment & Plan (05/29/2021 8:24 PM KILN FEEDER): Obesity is unchanged. Discussed the patient's BMI. The BMI is above average. BMI management plan is completed. BMI Follow-up includes: nutrition counseling, exercise counseling and education provided. Assessment & Plan (05/12/2021 1:26 PM KILN FEEDER): Obesity is unchanged. Discussed the patient's BMI. The BMI is above average. BMI management plan is completed. BMI Follow-up includes: nutrition counseling, exercise counseling and education provided. BMI 37.0-37.9, adult 05/12/2021 022 Assessment & Plan (09/11/2021 11:27 PM KILN FEEDER): Obesity is unchanged. Discussed the patient's BMI. The BMI is above average. BMI management plan is completed. BMI Follow-up includes: nutrition counseling, exercise counseling and education provided. Assessment & Plan (05/29/2021 8:24 PM KILN FEEDER): Obesity is unchanged. Discussed the patient's BMI. The BMI is above average. BMI management plan is completed. BMI Follow-up includes: nutrition counseling, exercise counseling and education provided. Assessment & Plan (05/12/2021 1:26 PM KILN FEEDER): Obesity is unchanged. Discussed the patient's BMI. The BMI is above average. BMI management plan is completed. BMI Follow-up includes: nutrition counseling, exercise counseling and education provided. Tinea corporis 04/14/2021 01/23/2022 Assessment & Plan (05/31/2021 9:15 PM KILN FEEDER): Improving with Lotrisone. Keep the area clean and dry Assessment & Plan (05/29/2021 8:24 PM KILN FEEDER): Lotrisone to pharmacy. Encouraged her to keep the area clean and dry use her dryer to dry the skin before applying the cream. She is to call if symptoms worsen or do not resolve. Need for immunization against influenza 04/14/2021 05/31/2021 Assessment & Plan (05/29/2021 8:24 PM KILN FEEDER): Fluid updated in the office Medicare annual wellness visit, subsequent 04/13/2021 05/31/2021 Assessment & Plan (05/29/2021 8:23 PM KILN FEEDER): Encouraged healthy lifestyle, good nutrition and exercise. [...] 12/30/2020 Assessment & Plan (08/31/2020 9:31 AM KILN FEEDER): Error. This should be right calf but PT order sent and corrected so unable to remove. Fatigue 08/31/2020 09/06/2023 Assessment & Plan (04/06/2023 7:43 PM CDT): Probably multifactorial. Check labs and followup to re-evaluate Assessment & Plan (05/02/2022 9:16 PM CDT): Probably multifactorial. Check labs and followup to re-evaluate Assessment & Plan (08/31/2020 9:34 AM KILN FEEDER): Probably multifactorial. Check labs and followup to re-evaluate Pain in both lower extremities 08/31/2020 09/06/2023 Assessment & Plan (09/01/2023 3:41 PM KILN FEEDER): Cramping lower leg pain has resolved with [...] 021 Assessment & Plan (08/31/2020 9:33 AM KILN FEEDER): Obesity is unchanged. Discussed the patient's BMI. The BMI is above average. BMI management plan is completed. BMI Follow-up includes: nutrition counseling, exercise counseling and education provided. Pain of right calf 08/26/2020 Assessment & Plan (08/31/2020 9:31 AM KILN FEEDER): This is a significant, separately identifiable problem that was evaluated and managed on the same day as the wellness exam Unable to rule out DVT with her calf pain/sxs. Check STAT Venous doppler. Recvd Results and discussed with patient via phone. Negative for DVT. Recommend PT. Prefers [place] Annual physical exam 08/24/2020 Assessment & Plan (08/31/2020 9:34 AM KILN FEEDER): Encouraged healthy lifestyle, good nutrition and exercise. Encouraged Calcium and Vitamin D and weight bearing exercise for bone health. Reviewed immunizations Reviewed age appropirate screenings. Dizziness 05/07/2020 09/06/2023 Assessment & Plan (05/14/2020 9:35 PM KILN FEEDER): Suspect the dizziness is inner ear related. [...] imaging. Assessment & Plan (05/07/2020 1:49 PM KILN FEEDER): Declines to report to er now 'I [...] 05/14/2020 Assessment & Plan (05/07/2020 1:49 PM KILN FEEDER): Declines to report to er now 'I [...] 12/30/2020 Assessment & Plan (05/07/2020 1:49 PM KILN FEEDER): Declines to report to er now 'I [...] provided Assessment & Plan (05/31/2021 9:15 PM KILN FEEDER): Mammogram order provided Assessment & Plan (02/18/2020 9:47 PM CDT): Mammogram order provided today Medicare annual wellness visit, subsequent 02/15/2020 02/15/2020 Precordial pain 09/04/2019 09/06/2023 Assessment & Plan (08/07/2023 7:50 PM KILN FEEDER): Workup in the hospital. Cardiology states her [...] inhaler. Assessment & Plan (07/13/2021 11:26 AM KILN FEEDER): The patient will continue with Dulera 2 [...] 020 Assessment & Plan (08/13/2019 8:59 AM KILN FEEDER): Encouraged healthy lifestyle, good nutrition and exercise. Encouraged Calcium and Vitamin D and weight bearing exercise for bone health. Reviewed immunizations Reviewed age appropirate screenings. Obesity, morbid, BMI 40.0-49.9 08/13/2019 09/23/2020 Assessment & Plan (08/26/2020 7:10 AM KILN FEEDER): Obesity is unchanged. Discussed the patient's BMI. The BMI is above average. BMI management plan is completed. BMI Follow-up includes: nutrition counseling, exercise counseling and education provided. Assessment & Plan (05/14/2020 9:33 PM KILN FEEDER): Obesity is unchanged. Discussed the patient's BMI. [...] provided. Assessment & Plan (08/13/2019 8:58 AM KILN FEEDER): Obesity is unchanged. Discussed the patient's BMI. [...] change Assessment & Plan (08/13/2019 9:01 AM KILN FEEDER): This is a significant, separately identifiable problem [...] 01/22/2024 Assessment & Plan (09/06/2023 9:42 AM KILN FEEDER): Probably multifactorial. Check labs and followup to re-evaluate Assessment & Plan (09/03/2021 11:28 AM KILN FEEDER): She notes increased fatigue and lack of [...] re-evaluate Assessment & Plan (08/13/2019 9:08 AM KILN FEEDER): Probably multifactorial. Check labs and followup to re-evaluate Check labs prior to next visit BMI 40.0-44.9, adult 08/02/2019 020 Assessment & Plan (08/13/2019 8:57 AM KILN FEEDER): Obesity is unchanged. Discussed the patient's BMI. The BMI is above average. BMI management plan is completed. BMI Follow-up includes: nutrition counseling, exercise counseling and education provided. Assessment & Plan (08/02/2019 7:21 AM KILN FEEDER): Obesity is unchanged. Discussed the patient's BMI. The BMI is above average. BMI management plan is completed. BMI Follow-up includes: nutrition counseling, exercise counseling and education provided. Morbid obesity 08/02/2019 08/13/2019 Assessment & Plan (08/02/2019 7:20 AM KILN FEEDER): Obesity is unchanged. Discussed the patient's BMI. The BMI is above average. BMI management plan is completed. BMI Follow-up includes: nutrition counseling, exercise counseling and education provided. Acute non-recurrent maxillary sinusitis 08/02/2019 08/13/2019 Assessment & Plan (08/02/2019 7:47 AM KILN FEEDER): Start antibiotic, antihistamine, Mucinex and Steroid nasal [...] foot. She is being sent directly to [facility] and they were working her in [...] 21 Assessment & Plan (05/14/2020 9:33 PM KILN FEEDER): Completed Doxy and steroid. No s/s infection. [...] p.r.n. Assessment & Plan (08/13/2019 8:59 AM KILN FEEDER): Continue with NSAIDs prn Atheroscler of [place] artery of both legs with intermit claudication 10/31/2018 12/20/2022 Assessment & Plan (09/11/2021 11:23 PM KILN FEEDER): Continue per vascular. She is on aspirin and statin Assessment & Plan (12/24/2020 9:03 AM CDT): Sxs stable. On ASA, statin and encouraged daily exercise. Assessment & Plan (02/18/2020 9:43 PM CDT): Continue per cardio. On ASA and statin Assessment & Plan (08/13/2019 8:45 AM KILN FEEDER): Continues with Dr. Alonso salmeron Assessment & Plan (11/01/2018 11:00 PM CDT): Pt sxs well controlled. On ASA Coronary artery disease of n ative artery of [place] heart with stable angina pectoris 10/31/2018 12/30/2020 Assessment & Plan (08/13/2019 8:36 AM KILN FEEDER): On ASA and Nitrate. Continue per cardio Depression 07/16/2018 09/11/2021 Frontal sinusitis 06/26/2018 12/24/2020 Leukopenia 03/29/2018 12/30/2020 Other chronic pain 08/05/2017 3 Chronic seasonal allergic rh initis due to pollen 04/25/2017 12/30/2020 Assessment & Plan (12/24/2020 9:03 AM CDT): Continue current regimen with singulair and otc Assessment & Plan (02/18/2020 9:44 PM CDT): Continue with otc regimen Assessment & Plan (08/13/2019 8:46 AM KILN FEEDER): Continue current regimen Assessment & Plan (11/01/2018 [...] potassium Assessment & Plan (09/11/2021 11:26 PM KILN FEEDER): Bp is stable/in acceptable range for any co-morbidities. Encouraged to limit sodium intake and exercise for weight control. Currently stable without medication Assessment & Plan (05/29/2021 8:19 PM KILN FEEDER): Bp is stable/in acceptable range for any co-morbidities. Encouraged to limit sodium intake and exercise for weight control. Continue Lasix is helping with the swelling and addition. Blood pressure stable Assessment & Plan (05/24/2021 10:38 AM KILN FEEDER): Continue Lasix potassium Assessment & Plan (12/24/2020 9:05 AM CDT): Bp is stable/in acceptable range for any co-morbidities. Encouraged to limit sodium intake and exercise for weight control. Assessment & Plan (08/31/2020 9:32 AM KILN FEEDER): Bp is stable/in acceptable range for any co-morbidities. Encouraged to limit sodium intake and exercise for weight control. Stable with laxis currently Assessment & Plan (02/18/2020 9:44 PM CDT): Bp is stable/in acceptable range for any co-morbidities. Encouraged to limit sodium intake and exercise for weight control. Assessment & Plan (08/13/2019 8:57 AM KILN FEEDER): Bp is stable/in acceptable range for any [...] difficulty pulling them. Recommend finding some on [employer] that fit her calf that she can zip on and off. Showed them to her on [employer] and where to order them. She states she will try to get them. Assessment & Plan (05/31/2021 9:16 PM KILN FEEDER): Improving slowly. May have been due to the Relafen. She is on 60 of Lasix with potassium 10 mEq daily. Continue with current plan. Keep legs elevated. Utilize compressi to improve cleared. on hose. Call if symptoms worsen or do not continue to improve. Assessment & Plan (05/29/2021 8:23 PM KILN FEEDER): Persistent lower extremity edema that has improved [...] CMP. Assessment & Plan (05/24/2021 10:39 AM KILN FEEDER): Patient that her swelling was improving since discharge for over the last day or so it seems to be increasing. Will increase the Lasix to 40mg Start K 10meq daily Recheck labs in 5 days Assessment & Plan (08/31/2020 9:33 AM KILN FEEDER): Continue lasix Palpitations 12/08/2015 12/30/2020 Overview (10/09/2016): Palpitations Other abnormal glucose 11/11/201508/31 Asthma 10/14/2015 12/24/2020 Assessment & Plan (08/13/2019 8:49 AM KILN FEEDER): Continue with current regimen and with Pulmonary Assessment & Plan (11/01/2018 10:53 PM CDT): Currently Stable with regimen. Monitor closely with current allergy season. Followup Dr. Gomez as directed. Menopause 10/14/2015 12/30/2020 Cervical pain (neck) 10/14/2015 023 Immunizations Immunization Administration Dates Next Due COVID-19 mRNA ([employer]) 0.3 m L (30 mcg) vaccine (12 [...] = 0.6 oz pur e alcohol) [facility] Utilities Answer Date Recorded In the past 12 months has e [employer], gas, oil, or water company threatened to [...] often do you attend chur ch or shinto services? 1 to 4 times per year [...] in a chcf (including now)? No 05/27/2023 PHQ-9 Answer Date [...] in the past [address] [facility], were you homeless or living in [...] on file Legal Sex Female 8:04 PM KILN FEEDER Gender Identity Female 02/15/2020 6:08 PM CDT [...] on file Medical Devices Implanted Type Area Gravity Prospector Device Identifier Shelf Expiration Date Model / Serial / Lot [employer] Simplex P Radiopaque Full Dose Cement Bone Sterile 6191-1-010 - [id number] Implanted:Qty: 2 on 05/04/2023 by Michael Motta MD at [facility] Bone Cement Left: Knee [employer] 05/03/2025 6191-1-010 / [id number] / [id number] [employer] Simplex P Radiopaque Full Dose Cement Bone Sterile 6191-1-010 - [id number] Implanted:Qty: 2 on 05/30/2024 by Michael Motta MD at [facility] Bone Cement Right: Patella [employer] [id number] 05/03/2026 6191- / / [id number] [employer] Persona 14mm 30+ Mm Knee Tibia Taper Extension Stem [id number] - [id number] - [id number] Implanted:Qty: 1 on 05/04/2023 by Michael Motta MD at [facility] Left: Knee [employer] [id number] 02/15/2033 [id number] / [id number] 14 / [id number] [employer] Persona Cemented Cruciate Retaining Knee Left 7 Narrow Component [id number] - [id number] 1 - [id number] Implanted:Qty: 1 on 05/04/2023 by Michael Motta MD at [facility] Left: Knee [employer] [id number] 10/25/2032 [id number] / [id number] 01 / [id number] [employer] Baseplate Tibial Knee Cemented Left Fixed Stemmed Persona Size D Tivanium [id number] - [id number] 1 - [id number] Implanted:Qty: 1 on 05/04/2023 by Michael Motta MD at [facility] Left: Knee [employer] [id number] 09/11/2032 [id number] / [id number] / [id number] [employer] Persona 11mm Knee Left 6-7 C-D Insert Articular Vivacit-E Sterile [id number] - [id number] 1 - [id number] Implanted:Qty: 1 on 05/04/2023 by [facility] [facility] Left: Knee [employer] [id number] 12/28/2025 [id number] / [id number] / [id number] [employer] Persona 32mm Knee Component Patellar All Poly Latex Free [id number] - [id number] Implanted:Qty: 1 on 05/04/2023 by Michael Motta MD at [facility] [employer] 12/19/2027 [id number] / / [id number] [employer] Baseplate Tibial Knee Cemented Right Fixed Stemmed Persona Size C Tivanium [id number] - [id number] Implanted:Qty: 1 on 05/30/2024 by Michael Motta MD at [facility] Right: Knee [employer] [id number] 03/22/2033 [id number] / / [id number] [employer] Persona 29mm Knee Component Patellar All Poly Latex Free [id number] - [id number] Implanted:Qty: 1 on 05/30/2024 by Michael Motta MD at [facility] Right: Knee [employer] [id number] 12/18/2028 [id number] / / [id number] [employer] Persona 13mm Cruciate Retain Knee Right 6-7 Cd Insert Articular Latex Free [id number] - [id number] Implanted:Qty: 1 on 05/30/2024 by Michael Mtota MD at [facility] Right: Patella [employer] [id number] 05/04/2025 [id number] / / [id number] [employer] Persona Cruciate Retaining Cemented Knee Right 7 Narrow Component [id number] - [id number] Implanted:Qty: 1 on 05/30/2024 by Michael Motta MD at [facility] Right: Knee [employer] [id number] 12/27/2033 [id number] / / [id number] [employer] Persona 14mm 30+ Mm Knee Tibia Taper Extension Stem [id number] - [id number] Implanted:Qty: 1 on 05/30/2024 by Michael Motta MD at [facility] Right: Knee [employer] [id number] 04/11/2034 [id number] / / [id number] Procedures Procedure Name Priority Date/Time Associated Diagnosis Comments POC INFLUENZA A/B, COVID-19 ANTIGEN Routine 09/25/2024 11:02 AM CDT Influenza A Acute cough XR KNEE RIGHT 3 VIEWS Schedule Routine, Read Routine (OP Routine) 09/13/2024 1:48 PM CDT Chronic pain of right knee CT ABDOMEN PELVIS W CONTRAST Schedule Routine, Read Routine (OP Routine) 08/29/2024 12:23 PM KILN FEEDER COMPREHENSIVE METABOLIC PANEL Routine 08/23/2024 2:11 PM KILN FEEDER Encounter for medication monitoring CBC WITH AUTO DIFFERENTIAL Routine 08/23/2024 2:11 PM KILN FEEDER Encounter for medication monitoring SCAN - LABS 08/23/2024 VITAMIN B12 Routine 08/02/2024 7:41 AM KILN FEEDER Fatigue, unspecified type LIPID PANEL Routine 08/02/2024 7:41 AM KILN FEEDER Mixed hyperlipidemia HEMOGLOBIN A1C Routine 08/02/2024 7:41 AM KILN FEEDER Pre-diabetes COMPREHENSIVE METABOLIC PANEL Routine 08/02/2024 7:41 AM KILN FEEDER Mixed hyperlipidemia CBC WITH AUTO DIFFERENTIAL Routine 08/02/2024 7:41 AM KILN FEEDER Fatigue, unspecified type TSH Routine 08/02/2024 7:41 AM KILN FEEDER Fatigue, unspecified type ERYTHROCYTE SEDIMENTATION RATE Routine 07/30/2024 2:36 PM KILN FEEDER 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) CRP (ACUTE PHASE) Routine 07/30/2024 2:3 6 PM KILN FEEDER 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) COMPREHENSIVE METABOLIC PANEL Routine 07/30/2024 2:36 PM KILN FEEDER Encounter for medication monitoring CBC WITH AUTO DIFFERENTIAL Routine 07/30/2024 2:36 PM KILN FEEDER Encounter for medication monitoring XR KNEE RIGHT 3 VIEWS Schedule Routine, Read Routine (OP Routine) 07/24/2024 1:35 PM KILN FEEDER Status post total knee replacement using cement, right SCREENING MAMMOGRAM BILATERAL W DYLLAN Schedule Routine, Read Routine (OP Routine) 08/02/2023 7:33 AM KILN FEEDER Breast cancer screening by mammogram DEXA AXIAL SKELETON BONE DENSITY 1 OR MORE SITES Schedule Routine, Read Routine (OP Routine) 04/12/2023 8:14 AM CDT COLONOSCOPY Routine 07/27/2021 HEPATITIS C ANTIBODY Routine 06/04/2020 10:29 AM KILN FEEDER Encounter for screening for other viral diseases Chronic fatigue from Last 3 Months or Most Recently Relevant to Health Maintenance Results * (ABNORMAL) POC Influenza A/B, COVID-19 antigen (09/25/2024 11:02 AM CDT) Influenza A Ag, POC Positive(A) Negative [facility] Influenza B Ag, POC Negative Negative [facility] COVID-19 Ag POC Presumptive Negative Presumptive Negative, Invalid [facility] Nasal 09/25/2024 11:0 2 AM CDT Jessica Collins NP POINT OF CARE TEST ORDERABLES Final Result [facility] [address] * XR Knee Right 3 Views [...] John Sparrow M.D. RB T: Report ID: [id number] Reading Location: [id number] Procedure Note John Sparrow MD - 09/18/2024 [...] John Sparrow M.D. RB T: Report ID: [id number] Reading Location: [id number] Michael Motta MD IMG XR PROCEDURES Final Re sult * (ABNORMAL) CT Abdomen Pelvis W Contrast (08/29/2024 12:23 PM KILN FEEDER) Anatomical Region Laterality Modality Body N/A Computed Tomogra phy us Historical Provider MD LUNSFORD CT PROCEDURES Edited Result - Final * CBC with auto differential (08/23/2024 2:11 PM KILN FEEDER) WBC 4.8 3.8 - 10.8 Thousand/u L [...] [facility] Blood 08/23/2024 2:11 PM KILN FEEDER 08/23/2024 2:11 PM KILN FEEDER Sangita OSMAN LAB BLOOD ORDERABLES Vy suazo Result [facility] [address] [address] [place] [phone] * (ABNORMAL) Comprehensive metabolic panel (08/23/2024 2:11 PM KILN FEEDER) Pathologist [facility] Glucose 188(H) 65 - 99 mg/dL [facility] [...] [facility] Blood 08/23/2024 2:11 PM KILN FEEDER 08/23/2024 2:11 PM KILN FEEDER us Sangita OSMAN LAB BLOOD ORDERABLES Vy l Result [facility] [address] [place] [phone] * SCAN - LABS (08/23/2024) Alee OSMAN Final Resu lt * (ABNORMAL) CBC with auto differential (08/02/2024 7:41 AM KILN FEEDER) Pathologist [facility] WBC 4.0 3.8 - 10.8 Thousand/u L [...] [facility] Blood 08/02/2024 7:41 AM KILN FEEDER 08/02/2024 7:42 AM KILN FEEDER Alee OSMAN LAB BLOOD ORDERABLES Final Result Performing Organization Address [facility]/ZIP Co de Phone Number [facility] [address] [place] [address] * TSH (08/02/2024 7:41 AM KILN FEEDER) TSH 1.57 0.40 - 4.50 mIU/L [facility] Blood 08/02/2024 7:41 AM KILN FEEDER 08/02/2024 7:42 AM KILN FEEDER Alee OSMAN LAB BLOOD ORDERABLES Final Result Performing Organization Address [facility] de Phone Number [facility] [address] [place] [address] * Hemoglobin A1c (08/02/2024 7:41 AM KILN FEEDER) Hgb A1C 5.4 <5.7 % of total Hgb [facility] Comment: For the purpose of screening for the presence of diabetes: <5.7% Consistent with the absence of diabetes 5.7-6.4% Consistent with increased risk for diabetes (prediabetes) > or =6.5% Consistent with diabetes This assay result is consistent with a decreased risk of diabetes. Currently, no consensus exists regarding use of hemoglobin A1c for diagnosis of diabetes in children. According to [place] Diabetes Association (ADA) guidelines, hemoglobin A1c <7.0% represents optimal control in non- diabetic patients. Different metrics may apply to specific patient populations. Standards of Medical Care in Diabetes(ADA). Blood 08/02/2024 7:41 AM KILN FEEDER 08/02/2024 7:42 AM KILN FEEDER Alee OSMAN LAB BLOOD ORDERABLES Final Result Performing Organization Address City/[facility]/ZIP Co de Phone Number [facility] [address] [place] [address] * Vitamin B12 (08/02/2024 7:41 AM KILN FEEDER) Vitamin B12 349 200 - 1,100 pg/mL [...] will have symptoms. Blood 08/02/2024 7:41 AM KILN FEEDER 08/02/2024 7:42 AM KILN FEEDER Alee OSMAN LAB BLOOD ORDERABLES Final Result Performing Organization Address [facility] Co de Phone Number [facility] [address] [place] [address] * Lipid panel (08/02/2024 7:41 AM KILN FEEDER) Cholesterol 127 <200 mg/dL [facility] [...] LDL-C. Barry SS et al. ELAINE. 2013;310(19): 6862-2687 (http://education.[employer] Force/faq/YPA463) Chol/HDL ratio 1.7 <5.0 (calc) [facility] Non-HDL, (LDL+VLDL) 52 <130 mg/dL (calc) [facility] Comment: For patients with diabetes plus 1 major ASCVD risk factor, treating to a non-HDL-C goal of <100 mg/dL (LDL-C of <70 mg/dL) is considered a therapeutic option. Blood 08/02/2024 7:41 AM KILN FEEDER 08/02/2024 7:42 AM KILN FEEDER Alee OSMAN LAB BLOOD ORDERABLES Final Result [facility] [address] [place] [address] * Comprehensive metabolic panel (08/02/2024 7:41 AM KILN FEEDER) Pathologist [facility] Glucose 99 65 - 99 mg/dL [facility] [...] [facility] Blood 08/02/2024 7:41 AM KILN FEEDER 08/02/2024 7:42 AM KILN FEEDER us Alee OSMAN LAB BLOOD ORDERABLES Final Result [facility] [address] [place] [address] * CBC with auto differential (07/30/2024 2:36 PM KILN FEEDER) WBC 6.4 3.8 - 10.8 Thousand/u L [...] [facility] Blood 07/30/2024 2:3 6 PM KILN FEEDER 07/30/2024 2:36 PM KILN FEEDER [facility] LAB BLOOD ORDERABLES Vy l Result Performing Organization Address [facility] de Phone Number [facility] [address] [place] [address] * Erythrocyte sedimentation rate (07/30/2024 2:36 PM KILN FEEDER) Erythrocyte sedimentation rate 11 < OR = 30 mm/h [facility] Blood 07/30/2024 2:36 PM KILN FEEDER 07/30/2024 2:36 PM KILN FEEDER Result [facility] Magali Farrar NM LAB BLOOD ORDERABLES Vy l Result Performing Organization Address [facility] de Phone Number [facility] [address] [place] [address] * CRP (acute phase) (07/30/2024 2:36 PM KILN FEEDER) C-RP <3.0 <8.0 mg/L [facility] Blood 07/30/2024 2:36 PM KILN FEEDER 07/30/2024 2:36 PM KILN FEEDER Sangita OSMAN LAB BLOOD ORDERABLES Vy suazo Result [facility] [address] [place] [address] * (ABNORMAL) Comprehensive metabolic panel (07/30/2024 2:36 PM KILN FEEDER) Glucose 115(H) 65 - 99 mg/dL [facility] [...] [facility] Blood 07/30/2024 2:36 PM KILN FEEDER 07/30/2024 2:36 PM KILN FEEDER us Sangita OSMAN LAB BLOOD ORDERABLES Vy suazo Result [facility] [employer] [facility] [address] [place] [address] * XR Knee Right 3 Views (07/24/2024 1:35 PM KILN FEEDER) Anatomical Region Laterality Modality Lower Extremities, Knee Right Computed Radiography 07/25/2024 7:16 AM KILN FEEDER Narrative 07/25/2024 7:18 AM KILN FEEDER EXAM DESCRIPTION: XR KNEE RIGHT 3 VIEWS [...] signed by Elton CABA T: Report ID: [id number] Reading Location: [place] [address] Procedure Note Elton Jonas MD - 07/25/2024 [...] signed by Elton CABA T: Report ID: [id number] Reading Location: [id number] Michael Motta MD IMG XR PROCEDURES Final Re sult * Screening Mammogram Bilateral W Dyllan (08/02/2023 7:33 AM KILN FEEDER) Anatomical Region Laterality Modality Breast Bilateral Mammography [...] * Hepatitis C antibody (06/04/2020 10:29 AM KILN FEEDER) Hep C Ab NON-REACTI VE NON-REACT ALEXYS [facility] SIGNAL TO CUT-OFF 0.02 <1.00 [facility] Comment: HCV antibody was non-reactive. There is no laboratory evidence of HCV infection. In most cases, no further action is required. However, if recent HCV exposure is suspected, a test for HCV RNA (test code 99797) is suggested. For additional information please refer to http://education.[employer]/faq/NTV97i4 (This link is being provided for informational/ educational purposes only.) Blood specimen (specimen) 06/04/2020 10:29 AM KILN FEEDER 06/04/2020 10:30 AM KILN FEEDER Sangita OSMAN LAB MICROBIOLOGY - GENERA L ORDERABLES Final Result [facility] [address] [place] [address] from Last 3 Months or Most Recently Relevant to Health Maintenance Insurance 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 * Full Code (Latest Code Status on File) Date Activated Date Inactivated Comments 05/30/2024 12:38 PM 06/05/2024 6:31 PM * Full Code Date Activated Date Inactivated Comments 05/04/2023 2:33 PM 05/07/2023 3:07 AM * Full Code Date Activated Date Inactivated Comments 03/22/2021 4:39 PM 03/25/2021 6:17 PM Care Teams Property Insurance Inspector Relationship Specialty Start Date End Date Alee Elizondo PA [address] [facility] [address] [place] [address] PCP - General Internal Medicine 07/05/23 Sharan Linton MD Referring Physician Gastroenterology 10/31/18 Martha Starks MD Consulting Physician Cardiology 12/24/20 Shama Hines MD [address] [facility] [address] [place] [address] Consulting Physician Pain Management 01/19/21 Artis Grewal MD [address] [place] [address] Consulting Physician Rheumatology 01/30/21 Amy Mayes NP [address] [facility] [address] [place] [address] Nurse Practitioner Cardiovascular Disease 04/20/24 Shailesh Dunn MD [address] [facility] [address] [address] Consulting Physician Pulmonary Disease 04/20/24 Sangita Farrar PA [address] [place] [address] Physician Tower Equipment Installer Rheumatology 05/15/24
--- OUTSIDE RECORDS SUMMARY | 2024-10-02 13:26 | XMS_ITS | Encounter Summary ---
Author Organization [facility] Facility Care Team Providers Care Swatcher Name Role Phone Alee Elizondo Primary Care Provider + [phone] Sharan Linton MD Unavailable [phone] Taisha Gomez MD Unavailable [phone] Parag Soto MD Unavailable [phone] RaziaMartha singh MD Unavailable [phone] Puneet Uribe MD Unavailable [phone] Shama Hines MD Unavailable Artis Grewal MD Unavailable [phone] Harrison ePna RN Unavailable [phone] Nafisa Gregg RN Unavailable [phone] Tho Kelsey MD Primary Care Provider [phone] Alee Elizondo Primary Care Provider + [phone] Amy aMyes NP Unavailable [phone] Shailesh Dunn MD Unavailable [phone] Sangita Farrar Unavailable [phone] Encounter Details Date Type Department Care Team (Latest Contact Info) Description 11/04/2015 Orders Only [facility] Provider, MD Tania [address] [place] [address] Social History Tobacco Use Types Packs/Day Years Used Date Smoking Tobacco: Never Assessed Comments Unknown Sex and Gender Information Value Date Recorded Sex Assigned at Not on file Legal 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 Gender Identity Female 02/15/2020 6:08 PM CDT [...] COVID: Suspected 08/13/2021 08/14/2021 08/14/2021 3:06 AM SOLAR PHOTOVOLTAIC ELECTRICIAN COVID: Suspected 08/14/2021 08/14/2021 08/15/2021 3:05 AM SOLAR PHOTOVOLTAIC ELECTRICIAN COVID: Suspected 08/14/2021 08/14/2021 08/15/2021 6:25 AM SOLAR PHOTOVOLTAIC ELECTRICIAN COVID: Suspected 06/02/2023 06/02/2023 06/02/2023 7:25 PM SOLAR PHOTOVOLTAIC ELECTRICIAN COVID: Suspected 07/26/2023 07/26/2023 07/26/2023 3:10 PM SOLAR PHOTOVOLTAIC ELECTRICIAN COVID: Suspected 09/25/2024 09/25/2024 09/25/2024 11:03 AM CDT Influenza, adult 09/25/2024 09/25/2024 10/02/2024 3:05 AM CDT documented as of this encounter Care Teams Swatcher Relationship Specialty Start Date End Date Alee Elizondo PA [address] [facility] [address] [place] [address] PCP - General Internal Medicine 02/01/17 06/29/23 Tho Kelsey MD [address] [facility] [address] [place] [address] PCP - General Family Medicine 06/30/23 07/04/23 Alee Elizondo PA [address] [place] [address] [place] [address] PCP - General Internal Medicine 07/05/23 Sharan Linton MD [address] [place] [address] [place] [address] Referring Physician Gastroenterology 10/31/18 Taisha Gomez MD [address] [place] [address] [place] [address] Referring Physician Pulmonary Disease 10/31/18 12/23/20 Parag Soto MD [address] [place] [address] [place] [address] Referring Physician Rheumatology 10/31/18 12/23/20 Martha Starks MD [address] [place] [address] [place] [address] Consulting Physician Cardiology 12/24/20 Puneet Uribe MD [address] [facility] [address] [place] [address] Consulting Physician Rheumatology 12/24/20 01/29/21 Shama Hines MD [address] [facility], [facility] [address] [place] [address] Consulting Physician Pain Management 01/19/21 Artis Grewal MD [address] [place] [address] Consulting Physician Rheumatology 01/30/21 Harrison Pena, JULIUS [address] [place] [address] Visualization Developer 05/30/23 09/04/23 Nafisa Gregg, JULIUS [address] [place] [address] [facility] [address] [place] [address] Visualization Developer 06/06/23 06/12/23 Amy Mayes NP [address] [address] Nurse Practitioner Cardiovascular Disease 04/20/24 Shailesh Dunn MD [address] [facility] [address] [address] Consulting Physician Pulmonary Disease 04/20/24 Sangita Farrar PA [address] [place] [address] Physician Rib Stiffener And Heel Dipper Rheumatology 05/15/24 documented as of this encounter
--- OUTSIDE RECORDS SUMMARY | 2024-10-02 13:26 | XMS_ITS | Encounter Summary ---
Author Organization [facility] Healthcare Address [address] [place] [address] Care Team Providers Care Tube Fitter Name Role Phone Sharan Linton MD Unavailable [phone] Martha Starks MD Unavailable [phone] Shama Hines MD Unavailable Artis Grewal MD Unavailable [phone] Alee Eliozndo Primary Care Provider [phone] Amy Mayes NP Unavailable [phone] Shailesh Dunn MD Unavailable [phone] Sangita Farrar Unavailable [phone] Encounter Details Date Type Department Care Team (Late st Contact Info) Description 10/03/2023 Orders Only [facility] Health Information Management [address] [place] [address] Scanning, Provider Social History Tobacco Use Types Packs/Day Years Used Date Smoking Tobacco: Never Smokeless Tobacco: Never Comments:Never used Alcohol Use Standard Drinks/Week Comments No 0 (1 standard drink = 0.6 oz pur e alcohol) [facility] Utilities Answer Date Recorded In the [...] you attend chur ch or episcopal services? More than 4 times per year 05/27/2023 Do you belong to any clubs o r organizations such as catholic groups, unions, fraternal or athletic groups, or [...] in a long-term (including now)? 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 Gender Identity Female 02/15/2020 6:08 PM [...] documented as of this encounter Care Teams Tube Fitter Relationship Specialty Start Date End Date Alee Elizondo PA [address] [facility] [place] [address] [place] [address] PCP - General Internal Medicine 07/05/23 Sharan Linton MD Referring Physician Gastroenterology 10/31/18 Martha Starks MD Consulting Physician Cardiology 12/24/20 Shama Hines MD [address] [facility], [address] [address] Consulting Physician Pain Management 01/19/21 Artis Grewal MD [address] [place] [address] Consulting Physician Rheumatology 01/30/21 Amy Mayes NP [address] [address] Nurse Practitioner Cardiovascular Disease 04/20/24 Shailesh Dunn MD [address] [facility] [address] [address] Consulting Physician Pulmonary Disease 04/20/24 Sangita Farrar PA [address] [place] [address] Physician Iso Coordinator Rheumatology 05/15/24 documented as of this encounter
--- OUTSIDE RECORDS SUMMARY | 2024-10-02 13:26 | XMS_ITS | Encounter Summary ---
Author Organization [facility] Healthcare Address [address] [place] [address] Care Team Providers Care Shipping & Receiving Lead Name Role Phone Sharan Linton MD Unavailable [phone] Martha Starks MD Unavailable [phone] Shama Hines MD Unavailable Artis Grewal MD Unavailable [phone] Alee Elizondo Primary Care Provider [phone] Amy Mayes NP Unavailable [phone] Shailesh Dunn MD Unavailable [phone] Sangita Farrar Unavailable [phone] Encounter Details Date Type Department Care Team (Late st Contact Info) Description 10/11/2023 Orders Only [facility] Health Information Management [address] [place] [address] Scanning, Provider Social History Tobacco Use Types Packs/Day Years Used Date Smoking Tobacco: Never Smokeless Tobacco: Never Comments:Never used Alcohol Use Standard Drinks/Week Comments No 0 (1 standard drink = 0.6 oz pur e alcohol) [facility] Utilities Answer Date Recorded In the [...] often do you attend chur ch or jew services? 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 Gender Identity Female 02/15/2020 6:08 [...] documented as of this encounter Care Teams Shipping & Receiving Lead Relationship Specialty Start Date End Date Alee Elizondo PA [address] [facility] [address] [address] PCP - General Internal Medicine 07/05/23 Sharan Linton MD Referring Physician Gastroenterology 10/31/18 Martha Starks MD Consulting Physician Cardiology 12/24/20 Shama Hines MD [address] [place] [address] [facility], [facility] [address] [place] [address] Consulting Physician Pain Management 01/19/21 Artis Grewal MD [address] [place] [address] Consulting Physician Rheumatology 01/30/21 Amy Mayes NP [address] [address] Nurse Practitioner Cardiovascular Disease 04/20/24 Shailesh Dunn MD [address] [facility] [address] [address] Consulting Physician Pulmonary Disease 04/20/24 Sangita Farrar PA [address] [place] [address] Physician Supervisor Vegetable Farming Rheumatology 05/15/24 documented as of this encounter
--- OUTSIDE RECORDS SUMMARY | 2024-10-02 13:27 | XMS_ITS | Encounter Summary ---
Author Organization [facility] Facility Care Team Providers Care Cardiac Care Nurse Name Role Phone Alee Elizondo Primary Care Provider + [phone] Sharan Linton MD Unavailable +[phone] Taisha Gomez MD Unavailable +[phone] Parag Soto MD Unavailable +[phone] RaziaMartha singh MD Unavailable +[phone] Puneet Uribe MD Unavailable +[phone] Shama Hines MD Unavailable Artis Grewal MD Unavailable +[phone] Harrison Pena RN Unavailable +[phone] Nafisa Gregg RN Unavailable +[phone] Tho Kelsey MD Primary Care Provider +[phone] Alee Elizondo Primary Care Provider + [phone] Amy Mayes NP Unavailable +[phone] Shailesh Dunn MD Unavailable [phone] Sangita Farrar Unavailable +[phone] Encounter Details Date Type Department Care Team (Latest Contact Info) Description 06/28/2016 Orders Only [facility] CLINCONV Provider, MD Tania [address] [place] [address] Social History Tobacco Use Types Packs/Day Years Used Date Smoking Tobacco: Never Alcohol Use Standard Drinks/Week Comments No 0 (1 standard drink = 0.6 oz pur e alcohol) Comments Unknown Sex and Gender Information Value Date Recorded Sex Assigned at Not on file Legal Sex Female 8:04 PM FUR OPERATOR Gender Identity Female 02/15/2020 6:08 PM CDT Sexual Orientation Not on file documented as of this encounter Plan of Treatment Not on file documented as of this encounter Procedures Procedure Name Priority Date/Time Associated Diagnosis Comments SCAN - LABS 06/29/2016 12:00 AM FUR OPERATOR documented in this encounter Results * SCAN - LABS (06/29/2016 12:00 AM FUR OPERATOR) Narrative 06/29/2016 12:00 AM FUR OPERATOR Ordered by an unspecified provider. us Historical Provider MD Final Res ult documented in this encounter Visit Diagnoses Not on filedocumented in this encounter Additional Health Concerns Infection Onset Date Last Indicated Resolved Time COVID: Suspected 08/13/2021 08/14/2021 08/14/2021 3:06 AM FUR OPERATOR COVID: Suspected 08/14/2021 08/14/2021 08/15/2021 3:05 AM FUR OPERATOR COVID: Suspected 08/14/2021 08/14/2021 08/15/2021 6:25 AM FUR OPERATOR COVID: Suspected 06/02/2023 06/02/2023 06/02/2023 7:25 PM FUR OPERATOR COVID: Suspected 07/26/2023 07/26/2023 07/26/2023 3:10 PM FUR OPERATOR COVID: Suspected 09/25/2024 09/25/2024 09/25/2024 11:03 AM CDT Influenza, adult 09/25/2024 09/25/2024 10/02/2024 3:05 AM CDT documented as of this encounter Care Teams Cardiac Care Nurse Relationship Specialty Start Date End Date Alee Elizondo PA [address] [facility] 500 [place] [address] PCP - General Internal Medicine 02/01/17 06/29/23 Tho Kelsey MD [address] [facility] [address] [facility] [address] [place] [address] PCP - General Family Medicine 06/30/23 07/04/23 Alee Elizondo PA [address] [place] [address] [place] [address] PCP - General Internal Medicine 07/05/23 Sharan Linton MD [address] [place] [address] [place] [address] Referring Physician Gastroenterology 10/31/18 Taisha Gomez MD [address] [place] [address] [place] [address] Referring Physician Pulmonary Disease 10/31/18 12/23/20 Parag Soto MD [address] [place] [address] [place] [address] Referring Physician Rheumatology 10/31/18 12/23/20 Martha Starks MD [address] [place] [address] [place] [address] Consulting Physician Cardiology 12/24/20 Puneet Uribe MD [address] [facility] [address] [place] [address] Consulting Physician Rheumatology 12/24/20 01/29/21 Shama Hines MD [address] [facility] [address] [place] [address] Consulting Physician Pain Management 01/19/21 Artis Grewal MD [address] [place] [address] Consulting Physician Rheumatology 01/30/21 Harrison Pena, JULIUS [address] [place] [address] Night Cleaner 05/30/23 09/04/23 Nafisa Gregg, JULIUS [address] [place] [address] [address] [place] [address] Night Cleaner 06/06/23 06/12/23 Aym Mayes NP [address] [facility] [address] [address] Nurse Practitioner Cardiovascular Disease 04/20/24 Shailesh Dunn MD [address] [facility] 200 [place] [address] Consulting Physician Pulmonary Disease 04/20/24 Sangita Farrar PA [address] [place] [address] Physician Scale Reclamation Tender Rheumatology 05/15/24 documented as of this encounter
--- OUTSIDE RECORDS SUMMARY | 2024-10-02 13:27 | XMS_ITS | Encounter Summary ---
Author Organization [facility] Facility Care Team Providers Care Sales And Retail Management Recruiter Name Role Phone Alee Elizondo Primary Care Provider + [phone] Sharan Linton MD Unavailable [phone] Taisha Gomez MD Unavailable [phone] Parag Soto MD Unavailable [phone] RaziaMartha singh MD Unavailable [phone] Puneet Uribe MD Unavailable +[phone] Shama Hines MD Unavailable Artis Grewal MD Unavailable [phone] Harrison Pena RN Unavailable +[phone] Nafisa Gregg RN Unavailable +[phone] Tho Kelsey MD Primary Care Provider [phone] Alee Elizondo Primary Care Provider + [phone] Amy Mayes NP Unavailable +[phone] Shailesh Dunn MD Unavailable +[phone] Sangita Farrar Unavailable +[phone] Encounter Details Date Type Department Care Team (Latest Contact Info) Description 08/10/2017 Orders Only [facility] CLINCONV Provider, MD Tania [address] [place] [address] Social History Tobacco Use Types Packs/Day Years Used Date Smoking Tobacco: Never Smokeless Tobacco: Never Alcohol Use Standard Drinks/Week Comments No 0 (1 standard drink = 0.6 oz pur e alcohol) Comments Unknown Sex and Gender Information Value Date Recorded Sex Assigned at Not on file Legal Sex Female 8:04 PM TRAFFIC 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 Gender Identity Female 02/15/2020 6:08 PM CDT Sexual Orientation Not on file documented as of this encounter Plan of Treatment Not on file documented as of this encounter Procedures Procedure Name Priority Date/Time Associated Diagnosis Comments CARDIOLOGY REPORT 08/10/2017 12: 00 AM TRAFFIC 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 documented in this encounter Results * CARDIOLOGY REPORT (08/10/2017 12:00 AM TRAFFIC 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) Anatomical Region Laterality Modality Other Narrative 08/10/2017 12:00 AM TRAFFIC 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 Ordered by an unspecified provider. us Historical Provider [facility] LEANDRA LANDRUM Final Result documented in this encounter Visit Diagnoses Not on filedocumented in this encounter Additional Health Concerns Infection Onset Date Last Indicated Resolved Time COVID: Suspected 08/13/2021 08/14/2021 08/14/2021 3:06 AM TRAFFIC 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 COVID: Suspected 08/14/2021 08/14/2021 08/15/2021 3:05 AM TRAFFIC 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 COVID: Suspected 08/14/2021 08/14/2021 08/15/2021 6:25 AM TRAFFIC 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 COVID: Suspected 06/02/2023 06/02/2023 06/02/2023 7:25 PM TRAFFIC 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 COVID: Suspected 07/26/2023 07/26/2023 07/26/2023 3:10 PM TRAFFIC 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 COVID: Suspected 09/25/2024 09/25/2024 09/25/2024 11:03 AM CDT Influenza, adult 09/25/2024 09/25/2024 10/02/2024 3:05 AM CDT documented as of this encounter Care Teams Sales And Retail Management Recruiter Relationship Specialty Start Date End Date Alee Elizondo PA [address] [facility] 500 [place] [address] PCP - General Internal Medicine 02/01/17 06/29/23 Tho Kelsey MD [address] [facility] [address] [facility] 400 [place] [address] PCP - General Family Medicine 06/30/23 07/04/23 Alee Elizondo PA [address] [place] [address] [place] [address] PCP - General Internal Medicine 07/05/23 Sharan Linton MD [address] [facility] [address] [place], [place] [id number] Referring Physician Gastroenterology 10/31/18 Taisha Gomez MD [address] [facility] [address] [place], [place] [id number] Referring Physician Pulmonary Disease 10/31/18 12/23/20 Parag Soto MD [address] [facility] [address] [place], [place] [id number] Referring Physician Rheumatology 10/31/18 12/23/20 Martha Starks MD [address] [facility] [address] [facility] [address] [place], [place] [address] Consulting Physician Cardiology 12/24/20 Puneet Uribe MD [address] [facility] [address] [facility] [address] [place] [address] Consulting Physician Rheumatology 12/24/20 01/29/21 Shama Hines MD [address] [facility], [facility] 230 [place] [address] Consulting Physician Pain Management 01/19/21 Artis Grewal MD [address] [place] [address] Consulting Physician Rheumatology 01/30/21 Harrison Pena, JULIUS [address] [place] [address] Horticultural Farmer 05/30/23 09/04/23 Nafisa Gregg, JULIUS [address] [place] [address] [place] [address] [place] [address] Horticultural Farmer 06/06/23 06/12/23 Amy Mayes NP [address] [address] Nurse Practitioner Cardiovascular Disease 04/20/24 Shailesh Dunn MD [address] [facility] 200 [place] [address] Consulting Physician Pulmonary Disease 04/20/24 Sangita Farrar PA [address] [place] [address] Physician Adult Basic Studies Teacher Rheumatology 05/15/24 documented as of this encounter
--- OUTSIDE RECORDS SUMMARY | 2024-10-02 13:27 | XMS_ITS | Encounter Summary ---
Author Organization [facility] Facility Care Team Providers Care Forge Shop Supervisor Name Role Phone Alee Elizondo Primary Care Provider + [phone] Sharan Linton MD Unavailable [phone] Taisha Gomez MD Unavailable [phone] Parag Soto MD Unavailable Martha Starks MD Unavailable [phone] Puneet Uribe MD Unavailable +[phone] Shama Hines MD Unavailable Artis Grewal MD Unavailable [phone] Harrison Pena RN Unavailable +[phone] Nafisa Gregg RN Unavailable +[phone] Tho Kelsey MD Primary Care Provider +[phone] Alee Elizondo Primary Care Provider + [phone] Amy Mayes NP Unavailable +[phone] Shailesh Dunn MD Unavailable [phone] Sangita Farrar Unavailable +[phone] Encounter Details Date Type Department Care Team (Latest Contact Info) Description 01/08/2017 Orders Only [facility] CLINCONV Provider, MD Tania [address] [place] [address] Social History Tobacco Use Types Packs/Day Years Used Date Smoking Tobacco: Never Alcohol Use Standard Drinks/Week Comments No 0 (1 standard drink = 0.6 oz pur e alcohol) Comments Unknown Sex and Gender Information Value Date Recorded Sex Assigned at Not on file Legal Sex Female 8:04 PM DRILLING MANAGER Gender Identity Female 02/15/2020 6:08 PM [...] COVID: Suspected 08/13/2021 08/14/2021 08/14/2021 3:06 AM DRILLING MANAGER COVID: Suspected 08/14/2021 08/14/2021 08/15/2021 3:05 AM DRILLING MANAGER COVID: Suspected 08/14/2021 08/14/2021 08/15/2021 6:25 AM DRILLING MANAGER COVID: Suspected 06/02/2023 06/02/2023 06/02/2023 7:25 PM DRILLING MANAGER COVID: Suspected 07/26/2023 07/26/2023 07/26/2023 3:10 PM DRILLING MANAGER COVID: Suspected 09/25/2024 09/25/2024 09/25/2024 11:03 AM CDT Influenza, adult 09/25/2024 09/25/2024 10/02/2024 3:05 AM CDT documented as of this encounter Care Teams Forge Shop Supervisor Relationship Specialty Start Date End Date Alee Elizondo PA [address] [facility] 500 [place] [address] PCP - General Internal Medicine 02/01/17 06/29/23 Tho Kelsey MD [address] [facility] [address] [facility] 400 [place] [address] PCP - General Family Medicine 06/30/23 07/04/23 Alee Elizondo PA [address] [place] [address] [place] [address] PCP - General Internal Medicine 07/05/23 Sharan Linton MD [address] [place] [address] [place] [address] Referring Physician Gastroenterology 10/31/18 Taisha Gomez MD [address] [facility] [address] [place] [address] [place] [address] Referring Physician Pulmonary Disease 10/31/18 12/23/20 Parag Soto MD [address] [place] [address] [place] [address] Referring Physician Rheumatology 10/31/18 12/23/20 Martha Starks MD [address] [place] [address] [place] [address] Consulting Physician Cardiology 12/24/20 Puneet Uribe MD [address] [facility] 110 [place] [address] Consulting Physician Rheumatology 12/24/20 01/29/21 Shama Hines MD 47[address] [facility], [facility] [address] [place] [address] Consulting Physician Pain Management 01/19/21 Artis Grewal MD [address] [place] [address] Consulting Physician Rheumatology 01/30/21 Harrison Pena, JULIUS [address] [place] [address] Band Sawing 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 05/30/23 09/04/23 Nafisa Gregg, JULIUS [address] [place] [address] [facility] 300 [place] [address] Band Sawing 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 06/06/23 06/12/23 Amy Mayes NP [address] [facility] 102 [place] [address] Nurse Practitioner Cardiovascular Disease 04/20/24 Shailesh Dunn MD 46[address] [facility] 200 [place] [address] Consulting Physician Pulmonary Disease 04/20/24 Sangita Farrar PA [address] [place] [address] Physician Hired Hand Rheumatology 05/15/24 documented as of this encounter
--- OUTSIDE RECORDS SUMMARY | 2024-10-02 13:27 | XMS_ITS | Encounter Summary ---
Author Organization [facility] Healthcare Address [address] [place] [address] Care Team Providers Care Information Technology Intern Name Role Phone Sharan Linton MD Unavailable [phone] Martha Starks MD Unavailable +[phone] Shama Hines MD Unavailable Artis Grewal MD Unavailable [phone] Alee Elizondo Primary Care Provider [phone] Amy Mayes NP Unavailable +[phone] Shailesh Dunn MD Unavailable +[phone] Sangita Farrar Unavailable +[phone] Encounter Details Date Type Department Care Team (Late st Contact Info) Description 12/08/2023 Orders Only [facility] Health Information Management [address] [place] [address] Scanning, Provider Social History Tobacco Use Types Packs/Day Years Used Date Smoking Tobacco: Never Smokeless Tobacco: Never Comments:Never used Alcohol Use Standard Drinks/Week Comments No 0 (1 standard drink = 0.6 oz pur e alcohol) [facility] Utilities Answer Date Recorded In the [...] attend chur ch or oriental orthodox services? More than 4 times per year 05/27/2023 Do you belong to any clubs o r organizations such as scientology groups, unions, fraternal or athletic groups, or [...] on file Legal Sex Female 8:04 PM EXHIBITION ORGANISER Gender Identity Female 02/15/2020 6:08 PM CDT [...] documented as of this encounter Care Teams Information Technology Intern Relationship Specialty Start Date End Date Alee Elizondo PA [address] [address] PCP - General Internal Medicine 07/05/23 Sharan Linton MD Referring Physician Gastroenterology 10/31/18 Martha Starks MD Consulting Physician Cardiology 12/24/20 Shama Hines MD 4700 [facility], [address] [address] Consulting Physician Pain Management 01/19/21 Artis Grewal MD [address] [place] [address] Consulting Physician Rheumatology 01/30/21 Amy Mayes NP [address] [address] Nurse Practitioner Cardiovascular Disease 04/20/24 Shailesh Dunn MD [address] [address] Consulting Physician Pulmonary Disease 04/20/24 Sangita Farrar PA [address] [place] [address] Physician Entry Level Staff Accountant Rheumatology 05/15/24 documented as of this encounter
--- OUTSIDE RECORDS SUMMARY | 2024-10-02 13:27 | XMS_ITS | Clinical Summary ---
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 Name Role Phone Sharan Linton MD Unavailable [phone] Martha Starks MD Unavailable [phone] Shama Hines MD Unavailable Artis Grewal MD Unavailable [phone] Alee Elizondo Primary Care Provider [phone] Amy Mayes NP Unavailable [phone] Shailesh Dunn MD Unavailable [phone] Sangita Farrar Unavailable Allergies Active Allergy Reactions [...] 05/07/20 Assessment & Plan (05/07/2024 8:57 PM FABRICATOR ARTIFICIAL BREAST): I have examined this patient and ordered [...] She has had evaluation by Urology at [facility] and has been told there is [...] 08/03/2023 Assessment & Plan (05/07/2024 8:56 PM FABRICATOR ARTIFICIAL BREAST): Discussed the patient's BMI. The BMI is [...] provided. Assessment & Plan (09/06/2023 9:38 AM FABRICATOR ARTIFICIAL BREAST): Discussed the patient's BMI. The BMI is above average. BMI management plan is completed. BMI Follow-up includes: nutrition counseling, exercise counseling and education provided. Patient has an obesity-related condition (not limited to: hypertension, obstructive sleep apnea, osteoarthritis, hyperlipidemia, diabetes, etc.). Therefore, morbid obesity may be documented for patients with a BMI between 35.00-39.99. Assessment & Plan (08/07/2023 7:51 PM FABRICATOR ARTIFICIAL BREAST): Discussed the patient's BMI. The BMI is above average. BMI management plan is completed. BMI Follow-up includes: nutrition counseling, exercise counseling and education provided. Patient has an obesity-related condition (not limited to: hypertension, obstructive sleep apnea, osteoarthritis, hyperlipidemia, diabetes, etc.). Therefore, morbid obesity may be documented for patients with a BMI between 35.00-39.99. Assessment & Plan (08/03/2023 7:45 AM FABRICATOR ARTIFICIAL BREAST): Discussed the patient's BMI. The BMI is above average. BMI management plan is completed. BMI Follow-up includes: nutrition counseling, exercise counseling and education provided. Primary osteoarthritis of right knee 07/08/2023 Assessment & Plan (05/07/2024 8:56 PM FABRICATOR ARTIFICIAL BREAST): Patient has arthritis in the right knee. Planning a total knee replacement with Dr. Alexus Motta on May 30 Assessment & Plan (08/03/2023 8:28 AM FABRICATOR ARTIFICIAL BREAST): Continue per ortho. She is seeing some improvement but it is difficult to know if the knee is rheumatoid versus osteo versus other etiology. Will await recommendations from JACQUI Raya but definitely encouraged her to become active as soon as possible. Status post total knee replacement using cement, right 05/19/2023 Assessment & Plan (06/02/2023 4:56 PM FABRICATOR ARTIFICIAL BREAST): Status post total knee replacement with Dr. Ge Sexton 04 May. She has just been released from rehab following up for her TCM visit. She appears to have an area of cellulitis at the incision site. She is also complaining of increased pain. Will check CBC CMP and inflammatory markers along with an x-ray. She plans to go to [facility] for the workup. Will follow up [...] provided. Assessment & Plan (06/02/2023 8:27 AM FABRICATOR ARTIFICIAL BREAST): Discussed the patients BMI: The BMI is [...] 12/20/2022 Assessment & Plan (05/07/2024 8:55 PM FABRICATOR ARTIFICIAL BREAST): Patient is on medication for her rheumatoid arthritis managed by [facility] Assessment & Plan (01/22/2024 8:13 PM CDT): Medications from [facility] contribute to her immunosuppressive state. Assessment & Plan (09/06/2023 9:41 AM FABRICATOR ARTIFICIAL BREAST): Medications are managed by [facility] for her rheumatoid arthritis Assessment & Plan (04/06/2023 7:44 PM CDT): Managed by [facility]. Currently on Plaquenil methotrexate Orencia folic [...] She has had evaluation by Urology at [facility] and has been told there is [...] capacity. Assessment & Plan (09/06/2023 9:41 AM FABRICATOR ARTIFICIAL BREAST): Continue per . She did not tolerate [...] Pate. Assessment & Plan (07/18/2022 10:20 AM FABRICATOR ARTIFICIAL BREAST): CT revealed pelvic lipomatosis that is compressing [...] 02/11/2022 Assessment & Plan (09/06/2023 9:41 AM FABRICATOR ARTIFICIAL BREAST): No change. Dysfunction of both eustachian tubes 02/11/2022 Myalgia, lower leg 01/11/2022 PLMD (periodic limb movement disorder) Assessment & Plan (08/02/2024 11:49 AM FABRICATOR ARTIFICIAL BREAST): Asymptomatic Assessment & Plan (06/22/2022 10:31 AM FABRICATOR ARTIFICIAL BREAST): Will continue Requip 1 mg nightly Assessment [...] bedtime. Assessment & Plan (07/13/2021 11:25 AM FABRICATOR ARTIFICIAL BREAST): Due to the patient stating that she [...] 06/04/2020 Assessment & Plan (08/23/2024 10:16 AM FABRICATOR ARTIFICIAL BREAST): Hepatitis negative 06/2020 Tspot negative 06/2020 Continue routine lab monitoring Maintain routine eye exams throughout the duration of taking hydroxychloroquine Assessment & Plan (07/30/2024 8:24 AM FABRICATOR ARTIFICIAL BREAST): Hepatitis negative 06/2020 Tspot negative 06/2020 Continue [...] hydroxychloroquine Assessment & Plan (09/01/2023 8:34 AM FABRICATOR ARTIFICIAL BREAST): Hepatitis negative 06/2020 Tspot negative 06/2020 Continue routine lab monitoring Maintain routine eye exams throughout the duration of taking hydroxychloroquine Assessment & Plan (06/29/2023 2:19 PM FABRICATOR ARTIFICIAL BREAST): Hepatitis negative 06/2020 Tspot negative 06/2020 Continue [...] hydroxychloroquine Assessment & Plan (07/14/2022 2:58 PM FABRICATOR ARTIFICIAL BREAST): Hepatitis negative 06/2020 Tspot negative 06/2020 Continue routine lab monitoring Maintain routine eye exams throughout the duration of taking hydroxychloroquine Assessment & Plan (06/03/2022 9:58 AM FABRICATOR ARTIFICIAL BREAST): Hepatitis negative 06/2020 Tspot negative 06/2020 Continue [...] hydroxychloroquine Assessment & Plan (09/03/2021 8:29 AM FABRICATOR ARTIFICIAL BREAST): Hepatitis negative 06/2020 Tspot negative 06/2020 Continue routine lab monitoring Maintain routine eye exams throughout the duration of taking hydroxychloroquine Assessment & Plan (06/03/2021 4:17 PM FABRICATOR ARTIFICIAL BREAST): Hepatitis negative 06/2020 Tspot negative 06/2020 Continue [...] hydroxychloroquine Assessment & Plan (09/02/2020 1:16 PM FABRICATOR ARTIFICIAL BREAST): Hepatitis negative 06/2020 Tspot negative 06/2020 Continue routine lab monitoring Maintain routine eye exams throughout the duration of taking hydroxychloroquine Assessment & Plan (07/09/2020 12:23 PM FABRICATOR ARTIFICIAL BREAST): Hepatitis negative 06/2020 Tspot negative 06/2020 Continue routine lab monitoring Maintain routine eye exams throughout the duration of taking hydroxychloroquine Drug-induced constipation 08/13/2019 Assessment & Plan (05/07/2024 8:54 PM FABRICATOR ARTIFICIAL BREAST): Patient with chronic constipation. Has been on [...] linzess Assessment & Plan (08/13/2019 8:57 AM FABRICATOR ARTIFICIAL BREAST): On Movantik with Dr. Soto Herpes zoster without complication 12/13/2018 Assessment & Plan (12/23/2018 10:18 PM CDT): Valtex to pharmacy. She has had shingles in the past. Pre-diabetes 10/31/2018 Assessment & Plan (05/07/2024 8:55 PM FABRICATOR ARTIFICIAL BREAST): Pre-diabetes/hyperglycemia is a precursor to Dm. Stressed [...] diabetes. Assessment & Plan (09/06/2023 9:40 AM FABRICATOR ARTIFICIAL BREAST): Pre-diabetes/hyperglycemia is a precursor to Dm. Stressed [...] diabetes. Assessment & Plan (09/11/2021 11:22 PM FABRICATOR ARTIFICIAL BREAST): Pre-diabetes/hyperglycemia is a precursor to Dm. Stressed importance of working on diet (decrease your simple sugars and one carbohydrate with each meal) and increase you exercise to achieve weight loss and this will help prevent you from progressing to diabetes. Assessment & Plan (05/29/2021 8:18 PM FABRICATOR ARTIFICIAL BREAST): Pre-diabetes/hyperglycemia is a precursor to Dm. Stressed [...] diabetes. Assessment & Plan (08/31/2020 9:34 AM FABRICATOR ARTIFICIAL BREAST): Pre-diabetes is a precursor to Dm. Stressed [...] diabetes. Assessment & Plan (08/13/2019 9:00 AM FABRICATOR ARTIFICIAL BREAST): This is a significant, separately identifiable problem [...] 10/31/2018 Assessment & Plan (05/07/2024 8:54 PM FABRICATOR ARTIFICIAL BREAST): Depression symptoms are stable with Wellbutrin XL 150 Cymbalta 60 b.i.d. Assessment & Plan (04/21/2024 8:50 PM CDT): Depression symptoms are stable with the Wellbutrin XL 150 and Cymbalta 60 b.i.d. Assessment & Plan (01/22/2024 8:11 PM CDT): Depression symptoms are stable with Wellbutrin and Cymbalta Assessment & Plan (09/06/2023 9:40 AM FABRICATOR ARTIFICIAL BREAST): Depression is stable with Wellbutrin and Cymbalta Assessment & Plan (08/03/2023 8:31 AM FABRICATOR ARTIFICIAL BREAST): Stable with Cymbalta 60 and Wellbutrin XL [...] Cymbalta Assessment & Plan (09/11/2021 11:26 PM FABRICATOR ARTIFICIAL BREAST): Continue Wellbutrin and Cymbalta Assessment & Plan (05/29/2021 8:22 PM FABRICATOR ARTIFICIAL BREAST): Continue Wellbutrin and Cymbalta Assessment & Plan (05/24/2021 10:39 AM FABRICATOR ARTIFICIAL BREAST): Continue Wellbutrin and Cymbalta Assessment & Plan (12/24/2020 9:07 AM CDT): Continue wellbutrin and cymbalta Assessment & Plan (08/31/2020 9:35 AM FABRICATOR ARTIFICIAL BREAST): Continue wellbutrin and cymbalta Assessment & Plan (02/18/2020 9:47 PM CDT): Stable with the Cymbalata Assessment & Plan (08/13/2019 8:59 AM FABRICATOR ARTIFICIAL BREAST): Stable with Cymbalta and Wellbutrin Assessment & [...] regimen. Med list updated to reflect the [id number] one daily and Prozac 40mg. Mixed hyperlipidemia 03/29/2018 Assessment & Plan (05/07/2024 8:54 PM FABRICATOR ARTIFICIAL BREAST): Encouraged patient to follow low fat/low chol [...] statin Assessment & Plan (09/06/2023 9:42 AM FABRICATOR ARTIFICIAL BREAST): Encouraged patient to follow low fat/low chol [...] statin Assessment & Plan (09/11/2021 11:26 PM FABRICATOR ARTIFICIAL BREAST): Encouraged patient to follow low fat/low chol diet like the Mediterranean diet. Increase good fats in the diet. Increase exercise. Monitor labs as needed. Continue statin Assessment & Plan (05/29/2021 8:22 PM FABRICATOR ARTIFICIAL BREAST): Encouraged patient to follow fat/low chol diet like the Mediterranean diet. Increase good fats in the diet. Increase exercise. Monitor labs as needed. Continue statin Assessment & Plan (05/24/2021 10:39 AM FABRICATOR ARTIFICIAL BREAST): Encouraged patient to follow fat/low chol diet like the Mediterranean diet. Increase good fats in the diet. Increase exercise. Monitor labs as needed. Continue statin Assessment & Plan (12/24/2020 9:07 AM CDT): Encouraged patient to follow fat/low chol diet like the Mediterranean diet. Increase good fats in the diet. Increase exercise. Monitor labs as needed. Continue statin Assessment & Plan (08/31/2020 9:34 AM FABRICATOR ARTIFICIAL BREAST): Encouraged patient to follow fat/low chol diet like the Mediterranean diet. Increase good fats in the diet. Increase exercise. Monitor labs as needed. Continue statin Assessment & Plan (02/18/2020 9:46 PM CDT): Encouraged patient to continue low fat/low chol diet. Continue exercise. Increase good fats in the diet. Monitor labs as needed. Assessment & Plan (08/13/2019 8:59 AM FABRICATOR ARTIFICIAL BREAST): Encouraged patient to continue low fat/low chol [...] future Assessment & Plan (09/06/2023 9:40 AM FABRICATOR ARTIFICIAL BREAST): Continue PPI Assessment & Plan (04/06/2023 7:36 PM CDT): Continue PPI p.r.n. Assessment & Plan (01/20/2023 8:13 PM CDT): Continue PPI Assessment & Plan (09/12/2022 6:13 PM CDT): Continue PPI p.r.n. Assessment & Plan (06/03/2022 3:40 PM FABRICATOR ARTIFICIAL BREAST): Pyrosis poorly controlled on Nexium. Pt has [...] PPI Assessment & Plan (09/11/2021 11:26 PM FABRICATOR ARTIFICIAL BREAST): Continue PPI Assessment & Plan (12/24/2020 9:05 AM CDT): Continue PPI Assessment & Plan (02/18/2020 9:45 PM CDT): Continue PPI. Saw Dr. Linton for increased GERD sxs. If persist, encouraged to followup again with Dr. Linton. Assessment & Plan (08/13/2019 8:58 AM FABRICATOR ARTIFICIAL BREAST): Stable with PPI Assessment & Plan (04/29/2019 [...] exertion) Assessment & Plan (06/22/2022 10:30 AM FABRICATOR ARTIFICIAL BREAST): Patient is not currently using inhalers. She [...] 10/14/2015 Assessment & Plan (08/02/2024 11:49 AM FABRICATOR ARTIFICIAL BREAST): Due to the patient stating the pressure [...] readjusted. She denied need for supplies. DME [facility] patient Assessment & Plan (05/07/2024 8:55 PM FABRICATOR ARTIFICIAL BREAST): Continue with CPAP. Assessment & Plan (04/21/2024 8:49 PM CDT): Continue per Dr. Dunn. Has all her needed supplies for CPAP which she is using every night. Continue with Requip 0.5 mg HS for restless leg Assessment & Plan (01/22/2024 8:08 PM CDT): Continue CPAP per Dr. Dothager Assessment & Plan (09/06/2023 9:40 AM FABRICATOR ARTIFICIAL BREAST): Continue CPAP Assessment & Plan (06/21/2023 10:14 AM FABRICATOR ARTIFICIAL BREAST): Patient continue to wear her CPAP at [...] CPAP Assessment & Plan (06/22/2022 10:31 AM FABRICATOR ARTIFICIAL BREAST): Will continue CPAP therapy at an auto titrating range of 7-20 cm water pressure. Denied need for supplies. DME [facility] patient Assessment & Plan (05/02/2022 9:15 [...] pressure. Patient denied need for supplies. DME [facility] patient. Patient is benefitting CPAP Assessment & Plan (09/11/2021 11:22 PM FABRICATOR ARTIFICIAL BREAST): Continue CPAP. Patient has all needed supplies. Assessment & Plan (07/13/2021 11:27 AM FABRICATOR ARTIFICIAL BREAST): Due to the patient stating she does not have enough pressure in her machine, I have increased the pressure to 13 cm water pressure. The patient denied need for for supplies. DME company [facility] patient. Have also ordered a new smart card set at 13 cm water pressure. Benefitting from CPAP therapy Assessment & Plan (05/29/2021 8:14 PM FABRICATOR ARTIFICIAL BREAST): Continue CPAP. Assessment & Plan (02/17/2021 11:09 AM CDT): The patient continues to be compliant with her CPAP at 8 cm water pressure. She has developed worsening daytime hypersomnia. She also has morning headaches and dry mouth. I have recommended proceeding with a CPAP titration study starting at 8 cm water pressure. Her DME is [facility] patient. Assessment & Plan (12/24/2020 9:04 AM CDT): Continue CPAP. Would like to see Pulm/sleep at [facility] as difficulty getting in consistently at [facility] and most of her care is now [facility] Assessment & Plan (02/18/2020 9:44 PM CDT): Continue CPAP Assessment & Plan (08/13/2019 8:46 AM FABRICATOR ARTIFICIAL BREAST): Using the CPAP. Has equipment as needed. [...] noted. Assessment & Plan (08/23/2024 10:16 AM FABRICATOR ARTIFICIAL BREAST): 02/2021 XR L knee with mild to moderate OA, now s/p B TKA. Following with ortho as planned. Assessment & Plan (07/30/2024 11:23 AM FABRICATOR ARTIFICIAL BREAST): 02/2021 XR L knee with mild to [...] March. Assessment & Plan (09/01/2023 3:42 PM FABRICATOR ARTIFICIAL BREAST): 02/2021 XR L knee with mild to moderate OA, R knee negative. Had injections with ortho without benefit, now s/p L TKA. Assessment & Plan (06/30/2023 12:46 PM FABRICATOR ARTIFICIAL BREAST): 02/2021 XR L knee with mild to [...] g/d. Assessment & Plan (07/15/2022 1:41 PM FABRICATOR ARTIFICIAL BREAST): 02/2021 XR L knee with mild to moderate OA, R knee negative. Had injections with ortho with benefit. Unable to afford PT. Can continue Tylenol Arthritis, not to exceed 4 g/d. Assessment & Plan (06/03/2022 9:58 AM FABRICATOR ARTIFICIAL BREAST): 02/2021 XR L knee with mild to [...] evaluation. Assessment & Plan (09/03/2021 11:27 AM FABRICATOR ARTIFICIAL BREAST): XR L knee with mild to moderate [...] able. Assessment & Plan (06/04/2021 10:27 AM FABRICATOR ARTIFICIAL BREAST): XR L knee with mild to moderate [...] above. Assessment & Plan (09/03/2020 12:23 PM FABRICATOR ARTIFICIAL BREAST): 10/27/2017 XR L knee: mild tricompartmental OA. Will continue meloxicam as above. Assessment & Plan (07/09/2020 12:24 PM FABRICATOR ARTIFICIAL BREAST): 10/27/2017 XR L knee: mild tricompartmental OA. [...] examination. Assessment & Plan (08/23/2024 12:54 PM FABRICATOR ARTIFICIAL BREAST): Moderate cdai with report of increasing pain, [...] needed. Assessment & Plan (07/30/2024 11:22 AM FABRICATOR ARTIFICIAL BREAST): Moderate cdai with report of increased morning [...] phone visit with labs near her home ([facility] in [place]), but the following month will need to plan for an in person visit. She expressed understanding and agreement with this plan. Continue methotrexate 20 mg weekly, folic acid 2 mg daily, and hydroxychloroquine 200 mg BID. Labs today as below. Assessment & Plan (05/07/2024 8:55 PM FABRICATOR ARTIFICIAL BREAST): Managed by [facility]. Currently on Plaquenil and methotrexate and Orencia folic acid Mobic and gabapentin. 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 Assessment & Plan (04/21/2024 8:49 PM CDT): Continue per [facility]. They currently manage her [...] Plan (01/22/2024 8:17 PM CDT): Continue per [facility] as they manage her condition. Assessment & Plan (11/24/2023 9:58 AM CDT): Low cdai without inflammatory sounding pain. Will continue methotrexate 20 mg weekly, folic acid 2 mg daily, hydroxychloroquine 200 mg BID, and Orencia and monitor. Labs today as below. Follow up in 3 months or sooner as needed. Assessment & Plan (09/06/2023 9:42 AM FABRICATOR ARTIFICIAL BREAST): Rheumatoid arthritis is managed by [facility]. Currently on Plaquenil methotrexate Orencia and folic acid Assessment & Plan (09/01/2023 3:39 PM FABRICATOR ARTIFICIAL BREAST): Overall stable without notable synovitis and no inflammatory sounding pain. Will continue methotrexate 20 mg weekly, folic acid 2 mg daily, hydroxychloroquine 200 mg BID, and Orencia and monitor. Labs today as below. Follow up in 3 months or sooner as needed. Assessment & Plan (08/03/2023 8:28 AM FABRICATOR ARTIFICIAL BREAST): Continue with rheumatology. Assessment & Plan (06/30/2023 12:43 PM FABRICATOR ARTIFICIAL BREAST): Overall stable without notable synovitis and no inflammatory sounding pain. Will continue methotrexate 20 mg weekly, folic acid 2 mg daily, hydroxychloroquine 200 mg BID, and Orencia and monitor. Labs today as below. Assessment & Plan (06/02/2023 4:49 PM FABRICATOR ARTIFICIAL BREAST): Continue per Rheumatology Assessment & Plan (04/06/2023 7:35 PM CDT): Continue per Rheumatology. She has been in discussion with them on what medications to stop prior to her knee surgery. She states she was told to take all of her medicines accept the Orencia. Assessment & Plan (01/20/2023 8:12 PM CDT): Continue per Rheumatology [facility] Assessment & Plan (01/13/2023 3:42 [...] Plan (09/12/2022 6:06 PM CDT): Continue with [facility] Assessment & Plan (07/15/2022 1:41 PM FABRICATOR ARTIFICIAL BREAST): Low cdai. Significantly improved after IM triamcinolone [...] needed. Assessment & Plan (06/03/2022 3:37 PM FABRICATOR ARTIFICIAL BREAST): High cdai. Previously felt well controlled with current regimen. Due to burden of disease will give patient a triamcinolone injection. Patient made aware of SE of steroids including but not limited to HTN, increased blood glucose, cataracts, glaucoma, AVN, and osteoporosis with senior living use. Should she flare again shortly after [...] (01/23/2022 4:57 PM CDT): Continue management per [facility] Assessment & Plan (12/07/2021 9:02 AM CDT): Low cdai. Denies inflammatory sounding joint pain. Continue methotrexate 25 mg weekly, folic acid to 2 mg daily, Rinvoq 15 mg daily, hydroxychloroquine 200 mg BID, and cyclobenzaprine 5 mg qhs and monitor. Labs today as below. Plan for follow up in 3 months or sooner as needed. Assessment & Plan (09/11/2021 11:14 PM FABRICATOR ARTIFICIAL BREAST): Continue per [facility] Assessment & Plan (09/03/2021 11:25 AM FABRICATOR ARTIFICIAL BREAST): cdai = 12. Pt suspects increased joint [...] needed. Assessment & Plan (06/04/2021 10:25 AM FABRICATOR ARTIFICIAL BREAST): Low cdai. Denies inflammatory sounding pain at present. Will plan to continue methotrexate 25 mg weekly, folic acid to 2 mg daily, Rinvoq 15 mg daily, hydroxychloroquine 200 mg BID, and cyclobenzaprine 5 mg qhs and monitor. Labs today as below. Plan for follow up in 3 months or sooner as needed. Assessment & Plan (05/31/2021 9:15 PM FABRICATOR ARTIFICIAL BREAST): Continue per Rheumatology Assessment & Plan (05/29/2021 8:13 PM FABRICATOR ARTIFICIAL BREAST): Continue per Rheumatology. Currently on Plaquenil methotrexate and folic acid. Assessment & Plan (05/24/2021 10:38 AM FABRICATOR ARTIFICIAL BREAST): Continue per Rheumatology Assessment & Plan (03/05/2021 [...] needed. Assessment & Plan (09/03/2020 12:22 PM FABRICATOR ARTIFICIAL BREAST): Low cdai. Continues to feel improved with [...] needed. Assessment & Plan (08/31/2020 9:34 AM FABRICATOR ARTIFICIAL BREAST): Continue per [facility] Assessment & Plan (07/09/2020 12:22 PM FABRICATOR ARTIFICIAL BREAST): 64yoF with a h/o seropositive RA diagnosed [...] time. Assessment & Plan (06/04/2020 11:14 AM FABRICATOR ARTIFICIAL BREAST): 64yoF with a h/o seropositive RA diagnosed [...] needed. Assessment & Plan (05/14/2020 9:33 PM FABRICATOR ARTIFICIAL BREAST): Refer to new [employer] Ha[employer] as Dr. Soto has . Assessment & Plan (02/18/2020 9:46 PM CDT): Continue per Rheum Assessment & Plan (08/13/2019 8:59 AM FABRICATOR ARTIFICIAL BREAST): Continue per Dr. Soto Assessment & Plan [...] responding to Reclast. Forteo was tried by [facility] and she could not [...] of her osteoporosis, recommended evaluation by the [facility], unfortunately their first available appt was in November 2024. Recommended today that she check with [facility] (at [facility]) to see how far out they are scheduling new patients, though she does not like this option due to distance from her house. Assessment & Plan (09/06/2023 9:40 AM FABRICATOR ARTIFICIAL BREAST): Managed by [facility]. Per patient they are making a referral to bone metabolism at [facility] she has not seen significant improvement with the Forteo or the Reclast. Assessment & Plan (09/01/2023 3:43 PM FABRICATOR ARTIFICIAL BREAST): DEXA: Lspine BMD 0.809 Tscore -2.2, L [...] of her osteoporosis, recommend evaluation by the [facility], provided contact info for Dr. Castillo. Pt in agreement with plan. Assessment & Plan (06/30/2023 12:49 PM FABRICATOR ARTIFICIAL BREAST): DEXA: Lspine BMD 0.809 Tscore -2.2, L [...] PM CDT): Continue to monitor. Managed by [facility]. Patient is on Reclast calcium vitamin-D [...] exercise Assessment & Plan (07/15/2022 1:42 PM FABRICATOR ARTIFICIAL BREAST): 01/27/2021 DEXA: Lspine -1.8, L femoral neck -1.9, L total hip -1.2, R femoral neck -2.3, R total hip -1.0, FRAX major 32% and hip 7%. Received Reclast 07/2021. Continue yearly Reclast, scheduled for 07/22 Assessment & Plan (06/03/2022 3:38 PM FABRICATOR ARTIFICIAL BREAST): 01/27/2021 DEXA: Lspine -1.8, L femoral neck [...] Plan (01/23/2022 5:02 PM CDT): Managed by [facility] currently on Reclast calcium and vitamin-D Assessment & Plan (12/07/2021 9:04 AM CDT): 01/27/2021 DEXA: Lspine -1.8, L femoral neck -1.9, L total hip -1.2, R femoral neck -2.3, R total hip -1.0, FRAX major 32% and hip 7%. Received Reclast 07/2021. Continue yearly Reclast. Assessment & Plan (09/03/2021 11:26 AM FABRICATOR ARTIFICIAL BREAST): 01/27/2021 DEXA: Lspine -1.8, L femoral neck -1.9, L total hip -1.2, R femoral neck -2.3, R total hip -1.0, FRAX major 32% and hip 7%. Received Reclast 07/2021. Continue yearly reclast and daily vitamin D-calcium supplement. Assessment & Plan (06/04/2021 10:27 AM FABRICATOR ARTIFICIAL BREAST): 01/27/2021 DEXA: Lspine -1.8, L femoral neck [...] order provided today, she will schedule at [facility] Assessment & Plan (12/24/2020 9:06 AM CDT): Continue Reclast thru Rheum Continue calcium, vitD and exercise Assessment & Plan (12/03/2020 10:45 AM CDT): Vitamin D level was 68. Received Reclast 07/09/2020. Last DEXA per available records was 01/31/2019, due this summer - order provided today, she will schedule at [facility] Assessment & Plan (09/03/2020 12:23 PM FABRICATOR ARTIFICIAL BREAST): Vitamin D level was 68. Received Reclast 07/09/2020. Last DEXA per available records was 01/31/2019, due this summer. Assessment & Plan (07/09/2020 12:23 PM FABRICATOR ARTIFICIAL BREAST): Overdue for Reclast, last infusion was 03/28/2019, will receive infusion today. Vitamin D level was 68 Last DEXA per available records was 01/31/2019 Assessment & Plan (06/04/2020 11:15 AM FABRICATOR ARTIFICIAL BREAST): Overdue for Reclast, last infusion was 03/28/2019, will check benefits. Recheck vitamin D level now. Last DEXA per available records was 01/31/2019 Assessment & Plan (02/18/2020 9:46 PM CDT): Calcium, vit D and exercise. Continue to monitor DXA Assessment & Plan (08/13/2019 8:58 AM FABRICATOR ARTIFICIAL BREAST): Continue with Calcium, Vit D and Exercise. [...] Krishnamurthy. 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 Daniels Stressed importance of very close follow-up BMI 37.0-37.9, adult 09/06/2023 024 Assessment & Plan (10/13/2023 7:38 AM CDT): Discussed the patient's BMI. The BMI is above average. BMI management plan is completed. BMI Follow-up includes: nutrition counseling, exercise counseling and education provided. Assessment & Plan (09/06/2023 9:42 AM FABRICATOR ARTIFICIAL BREAST): Discussed the patient's BMI. The BMI is above average. BMI management plan is completed. BMI Follow-up includes: nutrition counseling, exercise counseling and education provided. Hyperglycemia 09/06/2023 09/06/2023 Positive depression screening 09/06/2023 09/06/2023 Annual physical exam 09/06/2023 Assessment & Plan (09/06/2023 9:43 AM FABRICATOR ARTIFICIAL BREAST): Encouraged healthy lifestyle, good nutrition and exercise. Encouraged Calcium and Vitamin D and weight bearing exercise for bone health. Reviewed immunizations Reviewed age appropirate screenings. Right knee pain 08/09/2023 09/06/2023 Sinus congestion 08/07/2023 09/06/2023 Assessment & Plan (08/07/2023 7:54 PM FABRICATOR ARTIFICIAL BREAST): Persistent sinusitis symptoms along with cough. Will start doxy b.i.d.. Start antihistamine (Claritin OR Zyrtec), Mucinex 12hour and Steroid nasal spray (Flonase). Push fluids. Rest. Supportive care. If sxs worsen or don\'t improve, pt is to followup in the office. Acute cough 08/07/2023 01/22/2024 Assessment & Plan (08/07/2023 7:55 PM FABRICATOR ARTIFICIAL BREAST): Persistent sinusitis symptoms along with cough. Will start doxy b.i.d.. Start antihistamine (Claritin OR Zyrtec), Mucinex 12hour and Steroid nasal spray (Flonase). Push fluids. Rest. Supportive care. If sxs worsen or don\'t improve, pt is to followup in the office. BMI 35.0-35.9,adult 08/03/2023 09/06/19 Assessment & Plan (08/07/2023 7:51 PM FABRICATOR ARTIFICIAL BREAST): Discussed the patient's BMI. The BMI is above average. BMI management plan is completed. BMI Follow-up includes: nutrition counseling, exercise counseling and education provided. Assessment & Plan (08/03/2023 8:29 AM FABRICATOR ARTIFICIAL BREAST): Discussed the patient's BMI. The BMI is [...] 01/22/2024 Assessment & Plan (06/02/2023 4:57 PM FABRICATOR ARTIFICIAL BREAST): Later in the day received critical lab call for a CO2 value at 42. My staff contacted the patient and she was instructed to go to the ER for further evaluation to determine underlying cause. She states throughout the day she has noticed a little bit more shortness of breath. She plans to have her brother drive her to [facility]. Charge nurse was notified of the arrival [...] surgery. Will defer cardiac clearance to her chief cook. Her chronic medical conditions are stable. [facility] as instructed her to hold the Orencia [...] Dr. Ge Sexton on May 04 at [facility]. Need for vaccination for Strep pneumoniae 01/20/2023 [...] symptoms worsen or do not respond to [id number] allergy medicines within the next week she may call and will consider antibiotic. Left knee pain 09/13/2022 09/06/2023 BMI 39.0-39.9,adult 08/23/2022 11/09/19 Assessment & Plan (10/25/2022 3:32 PM CDT): Discussed the patient's BMI. The BMI is above average. BMI management plan is completed. BMI Follow-up includes: nutrition counseling, exercise counseling and education provided. Assessment & Plan (08/23/2022 2:19 PM FABRICATOR ARTIFICIAL BREAST): Discussed the patient's BMI. The BMI is [...] plans Assessment & Plan (07/18/2022 10:20 AM FABRICATOR ARTIFICIAL BREAST): CT revealed pelvic lipomatosis that is compressing [...] 12/20/2022 Assessment & Plan (07/18/2022 10:21 AM FABRICATOR ARTIFICIAL BREAST): CT revealed pelvic lipomatosis that is compressing [...] plan, Assessment & Plan (07/08/2022 12:33 PM FABRICATOR ARTIFICIAL BREAST): Patient has had dysuria. She was started [...] STAT abd/pelvis with and without contrast at [facility]. Check labs STAT. Acute right flank pain 07/08/202204/06 Assessment & Plan (07/18/2022 10:21 AM FABRICATOR ARTIFICIAL BREAST): CT revealed pelvic lipomatosis that is compressing [...] plan, Assessment & Plan (07/08/2022 5:58 PM FABRICATOR ARTIFICIAL BREAST): Images from the original note were not [...] STAT abd/pelvis with and without contrast at [facility]. Check labs STAT. STAT CT Abd/pelvis without [...] 09/06/2023 Assessment & Plan (07/08/2022 12:33 PM FABRICATOR ARTIFICIAL BREAST): Patient has had dysuria. She was started [...] STAT. Assessment & Plan (07/06/2022 8:50 AM FABRICATOR ARTIFICIAL BREAST): Pt presents with dysuria. Urine dip completed. [...] 35.00-39.99. Assessment & Plan (07/18/2022 10:23 AM FABRICATOR ARTIFICIAL BREAST): Discussed the patient's BMI. The BMI is above average. BMI management plan is completed. BMI Follow-up includes: nutrition counseling, exercise counseling and education provided. Assessment & Plan (07/08/2022 12:30 PM FABRICATOR ARTIFICIAL BREAST): Discussed the patient's BMI. The BMI is [...] She has received multiple injections from her linux server engineer regarding her knee but yesterday when she [...] 01/23/2022 Assessment & Plan (09/11/2021 11:28 PM FABRICATOR ARTIFICIAL BREAST): Patient has never had a full skin exam. She has quite a few lesions scattered and would benefit from a full exam. Will make referral Annual physical exam 09/11/2021 022 Assessment & Plan (09/11/2021 11:28 PM FABRICATOR ARTIFICIAL BREAST): Encouraged healthy lifestyle, good nutrition and exercise. Encouraged Calcium and Vitamin D and weight bearing exercise for bone health. Reviewed immunizations Reviewed age appropirate screenings. Cough 08/13/2021 01/23/2022 Assessment & Plan (08/13/2021 3:43 PM FABRICATOR ARTIFICIAL BREAST): Patient to presume positive COVID/FLU until results are available and plan to self isolate for up to 10 days from the onset of sxs. Check COVID/FLU test thru [facility] collection site in [place]. Let pt know the newest CDC recommendations [...] future. Assessment & Plan (07/13/2021 11:28 AM FABRICATOR ARTIFICIAL BREAST): I have ordered the patient Claritin 10 [...] provided. Assessment & Plan (09/11/2021 11:27 PM FABRICATOR ARTIFICIAL BREAST): Obesity is unchanged. Discussed the patient's BMI. The BMI is above average. BMI management plan is completed. BMI Follow-up includes: nutrition counseling, exercise counseling and education provided. Assessment & Plan (05/29/2021 8:24 PM FABRICATOR ARTIFICIAL BREAST): Obesity is unchanged. Discussed the patient's BMI. The BMI is above average. BMI management plan is completed. BMI Follow-up includes: nutrition counseling, exercise counseling and education provided. Assessment & Plan (05/12/2021 1:26 PM FABRICATOR ARTIFICIAL BREAST): Obesity is unchanged. Discussed the patient's BMI. The BMI is above average. BMI management plan is completed. BMI Follow-up includes: nutrition counseling, exercise counseling and education provided. BMI 37.0-37.9, adult 05/12/2021 022 Assessment & Plan (09/11/2021 11:27 PM FABRICATOR ARTIFICIAL BREAST): Obesity is unchanged. Discussed the patient's BMI. The BMI is above average. BMI management plan is completed. BMI Follow-up includes: nutrition counseling, exercise counseling and education provided. Assessment & Plan (05/29/2021 8:24 PM FABRICATOR ARTIFICIAL BREAST): Obesity is unchanged. Discussed the patient's BMI. The BMI is above average. BMI management plan is completed. BMI Follow-up includes: nutrition counseling, exercise counseling and education provided. Assessment & Plan (05/12/2021 1:26 PM FABRICATOR ARTIFICIAL BREAST): Obesity is unchanged. Discussed the patient's BMI. The BMI is above average. BMI management plan is completed. BMI Follow-up includes: nutrition counseling, exercise counseling and education provided. Tinea corporis 04/14/2021 01/23/2022 Assessment & Plan (05/31/2021 9:15 PM FABRICATOR ARTIFICIAL BREAST): Improving with Lotrisone. Keep the area clean and dry Assessment & Plan (05/29/2021 8:24 PM FABRICATOR ARTIFICIAL BREAST): Lotrisone to pharmacy. Encouraged her to keep the area clean and dry use her dryer to dry the skin before applying the cream. She is to call if symptoms worsen or do not resolve. Need for immunization against influenza 04/14/2021 05/31/2021 Assessment & Plan (05/29/2021 8:24 PM FABRICATOR ARTIFICIAL BREAST): Fluid updated in the office Medicare annual wellness visit, subsequent 04/13/2021 05/31/2021 Assessment & Plan (05/29/2021 8:23 PM FABRICATOR ARTIFICIAL BREAST): Encouraged healthy lifestyle, good nutrition and exercise. [...] 12/30/2020 Assessment & Plan (08/31/2020 9:31 AM FABRICATOR ARTIFICIAL BREAST): Error. This should be right calf but PT order sent and corrected so unable to remove. Fatigue 08/31/2020 09/06/2023 Assessment & Plan (04/06/2023 7:43 PM CDT): Probably multifactorial. Check labs and followup to re-evaluate Assessment & Plan (05/02/2022 9:16 PM CDT): Probably multifactorial. Check labs and followup to re-evaluate Assessment & Plan (08/31/2020 9:34 AM FABRICATOR ARTIFICIAL BREAST): Probably multifactorial. Check labs and followup to re-evaluate Pain in both lower extremities 08/31/2020 09/06/2023 Assessment & Plan (09/01/2023 3:41 PM FABRICATOR ARTIFICIAL BREAST): Cramping lower leg pain has resolved with [...] 08/31/2020 Assessment & Plan (08/31/2020 9:33 AM FABRICATOR ARTIFICIAL BREAST): Obesity is unchanged. Discussed the patient's BMI. The BMI is above average. BMI management plan is completed. BMI Follow-up includes: nutrition counseling, exercise counseling and education provided. Pain of right calf 08/26/2020 Assessment & Plan (08/31/2020 9:31 AM FABRICATOR ARTIFICIAL BREAST): This is a significant, separately identifiable problem that was evaluated and managed on the same day as the wellness exam Unable to rule out DVT with her calf pain/sxs. Check STAT Venous doppler. Recvd Results and discussed with patient via phone. Negative for DVT. Recommend PT. Prefers [place] Annual physical exam 08/24/2020 Assessment & Plan (08/31/2020 9:34 AM FABRICATOR ARTIFICIAL BREAST): Encouraged healthy lifestyle, good nutrition and exercise. Encouraged Calcium and Vitamin D and weight bearing exercise for bone health. Reviewed immunizations Reviewed age appropirate screenings. Dizziness 05/07/2020 09/06/2023 Assessment & Plan (05/14/2020 9:35 PM FABRICATOR ARTIFICIAL BREAST): Suspect the dizziness is inner ear related. [...] imaging. Assessment & Plan (05/07/2020 1:49 PM FABRICATOR ARTIFICIAL BREAST): Declines to report to er now 'I [...] 05/14/2020 Assessment & Plan (05/07/2020 1:49 PM FABRICATOR ARTIFICIAL BREAST): Declines to report to er now 'I [...] 12/30/2020 Assessment & Plan (05/07/2020 1:49 PM FABRICATOR ARTIFICIAL BREAST): Declines to report to er now 'I [...] provided Assessment & Plan (05/31/2021 9:15 PM FABRICATOR ARTIFICIAL BREAST): Mammogram order provided Assessment & Plan (02/18/2020 9:47 PM CDT): Mammogram order provided today Medicare annual wellness visit, subsequent 02/15/2020 02/15/2020 Precordial pain 09/04/2019 09/06/2023 Assessment & Plan (08/07/2023 7:50 PM FABRICATOR ARTIFICIAL BREAST): Workup in the hospital. Cardiology states her [...] inhaler. Assessment & Plan (07/13/2021 11:26 AM FABRICATOR ARTIFICIAL BREAST): The patient will continue with Dulera 2 [...] 020 Assessment & Plan (08/13/2019 8:59 AM FABRICATOR ARTIFICIAL BREAST): Encouraged healthy lifestyle, good nutrition and exercise. Encouraged Calcium and Vitamin D and weight bearing exercise for bone health. Reviewed immunizations Reviewed age appropirate screenings. Obesity, morbid, BMI 40.0-49.9 08/13/2019 09/23/2020 Assessment & Plan (08/26/2020 7:10 AM FABRICATOR ARTIFICIAL BREAST): Obesity is unchanged. Discussed the patient's BMI. The BMI is above average. BMI management plan is completed. BMI Follow-up includes: nutrition counseling, exercise counseling and education provided. Assessment & Plan (05/14/2020 9:33 PM FABRICATOR ARTIFICIAL BREAST): Obesity is unchanged. Discussed the patient's BMI. [...] provided. Assessment & Plan (08/13/2019 8:58 AM FABRICATOR ARTIFICIAL BREAST): Obesity is unchanged. Discussed the patient's BMI. [...] change Assessment & Plan (08/13/2019 9:01 AM FABRICATOR ARTIFICIAL BREAST): This is a significant, separately identifiable problem [...] 01/22/2024 Assessment & Plan (09/06/2023 9:42 AM FABRICATOR ARTIFICIAL BREAST): Probably multifactorial. Check labs and followup to re-evaluate Assessment & Plan (09/03/2021 11:28 AM FABRICATOR ARTIFICIAL BREAST): She notes increased fatigue and lack of [...] re-evaluate Assessment & Plan (08/13/2019 9:08 AM FABRICATOR ARTIFICIAL BREAST): Probably multifactorial. Check labs and followup to re-evaluate Check labs prior to next visit BMI 40.0-44.9, adult 08/02/2019 020 Assessment & Plan (08/13/2019 8:57 AM FABRICATOR ARTIFICIAL BREAST): Obesity is unchanged. Discussed the patient's BMI. The BMI is above average. BMI management plan is completed. BMI Follow-up includes: nutrition counseling, exercise counseling and education provided. Assessment & Plan (08/02/2019 7:21 AM FABRICATOR ARTIFICIAL BREAST): Obesity is unchanged. Discussed the patient's BMI. The BMI is above average. BMI management plan is completed. BMI Follow-up includes: nutrition counseling, exercise counseling and education provided. Morbid obesity 08/02/2019 08/13/2019 Assessment & Plan (08/02/2019 7:20 AM FABRICATOR ARTIFICIAL BREAST): Obesity is unchanged. Discussed the patient's BMI. The BMI is above average. BMI management plan is completed. BMI Follow-up includes: nutrition counseling, exercise counseling and education provided. Acute non-recurrent maxillary sinusitis 08/02/2019 08/13/2019 Assessment & Plan (08/02/2019 7:47 AM FABRICATOR ARTIFICIAL BREAST): Start antibiotic, antihistamine, Mucinex and Steroid nasal [...] foot. She is being sent directly to [facility] and they were working her in today. [...] 21 Assessment & Plan (05/14/2020 9:33 PM FABRICATOR ARTIFICIAL BREAST): Completed Doxy and steroid. No s/s infection. [...] p.r.n. Assessment & Plan (08/13/2019 8:59 AM FABRICATOR ARTIFICIAL BREAST): Continue with NSAIDs prn Atheroscler of [place] artery of both legs with intermit claudication 10/31/2018 12/20/2022 Assessment & Plan (09/11/2021 11:23 PM FABRICATOR ARTIFICIAL BREAST): Continue per vascular. She is on aspirin and statin Assessment & Plan (12/24/2020 9:03 AM CDT): Sxs stable. On ASA, statin and encouraged daily exercise. Assessment & Plan (02/18/2020 9:43 PM CDT): Continue per cardio. On ASA and statin Assessment & Plan (08/13/2019 8:45 AM FABRICATOR ARTIFICIAL BREAST): Continues with Dr. Alonso salmeron Assessment & Plan (11/01/2018 11:00 PM CDT): Pt sxs well controlled. On ASA Coronary artery disease of n ative artery of [place] heart with stable angina pectoris 10/31/2018 12/30/2020 Assessment & Plan (08/13/2019 8:36 AM FABRICATOR ARTIFICIAL BREAST): On ASA and Nitrate. Continue per cardio Depression 07/16/2018 09/11/2021 Frontal sinusitis 06/26/2018 12/24/2020 Leukopenia 03/29/2018 12/30/2020 Other chronic pain 08/05/2017 3 Chronic seasonal allergic rh initis due to pollen 04/25/2017 12/30/2020 Assessment & Plan (12/24/2020 9:03 AM CDT): Continue current regimen with singulair and otc Assessment & Plan (02/18/2020 9:44 PM CDT): Continue with otc regimen Assessment & Plan (08/13/2019 8:46 AM FABRICATOR ARTIFICIAL BREAST): Continue current regimen Assessment & Plan (11/01/2018 [...] potassium Assessment & Plan (09/11/2021 11:26 PM FABRICATOR ARTIFICIAL BREAST): Bp is stable/in acceptable range for any co-morbidities. Encouraged to limit sodium intake and exercise for weight control. Currently stable without medication Assessment & Plan (05/29/2021 8:19 PM FABRICATOR ARTIFICIAL BREAST): Bp is stable/in acceptable range for any co-morbidities. Encouraged to limit sodium intake and exercise for weight control. Continue Lasix is helping with the swelling and addition. Blood pressure stable Assessment & Plan (05/24/2021 10:38 AM FABRICATOR ARTIFICIAL BREAST): Continue Lasix potassium Assessment & Plan (12/24/2020 9:05 AM CDT): Bp is stable/in acceptable range for any co-morbidities. Encouraged to limit sodium intake and exercise for weight control. Assessment & Plan (08/31/2020 9:32 AM FABRICATOR ARTIFICIAL BREAST): Bp is stable/in acceptable range for any co-morbidities. Encouraged to limit sodium intake and exercise for weight control. Stable with laxis currently Assessment & Plan (02/18/2020 9:44 PM CDT): Bp is stable/in acceptable range for any co-morbidities. Encouraged to limit sodium intake and exercise for weight control. Assessment & Plan (08/13/2019 8:57 AM FABRICATOR ARTIFICIAL BREAST): Bp is stable/in acceptable range for any [...] difficulty pulling them. Recommend finding some on [employer] that fit her calf that she can zip on and off. Showed them to her on [employer] and where to order them. She states she will try to get them. Assessment & Plan (05/31/2021 9:16 PM FABRICATOR ARTIFICIAL BREAST): Improving slowly. May have been due to the Relafen. She is on 60 of Lasix with potassium 10 mEq daily. Continue with current plan. Keep legs elevated. Utilize compressi to improve cleared. on hose. Call if symptoms worsen or do not continue to improve. Assessment & Plan (05/29/2021 8:23 PM FABRICATOR ARTIFICIAL BREAST): Persistent lower extremity edema that has improved [...] CMP. Assessment & Plan (05/24/2021 10:39 AM FABRICATOR ARTIFICIAL BREAST): Patient that her swelling was improving since discharge for over the last day or so it seems to be increasing. Will increase the Lasix to 40mg Start K 10meq daily Recheck labs in 5 days Assessment & Plan (08/31/2020 9:33 AM FABRICATOR ARTIFICIAL BREAST): Continue lasix Palpitations 12/08/2015 12/30/2020 Overview (10/09/2016): Palpitations Other abnormal glucose 11/11/201508/31 Asthma 10/14/2015 12/24/2020 Assessment & Plan (08/13/2019 8:49 AM FABRICATOR ARTIFICIAL BREAST): Continue with current regimen and with Pulmonary Assessment & Plan (11/01/2018 10:53 PM CDT): Currently Stable with regimen. Monitor closely with current allergy season. Followup Dr. Gomez as directed. Menopause 10/14/2015 12/30/2020 Cervical pain (neck) 10/14/2015 023 Encounters Date Type Department Care Team Description 09/26/2024 Orders Only [facility] Family Medicine [address] [facility] [address] [place] [phone] Alee Elizondo PA Breast cancer screening by mammogram (Primary Dx) 09/25/2024 11:00 AM CDT Office Visit [facility] Care at [address] [phone] Jessica Collins NP Influenza A (Primary Dx); Acute cough 09/25/2024 Results Follow-Up [facility] [address] [place] [address] [address] [place] [address] Alee Elizondo PA 09/20/2024 8:00 AM CDT Office Visit [facility] [address] [facility] [address] [place] [phone] Devika Marin MD Venous insufficiency (chronic) (peripheral) (Primary Dx); Mixed hyperlipidemia 09/20/2024 Telephone [facility] [address] [place] [address] [place] [phone] Michael Motta MD med clarification 09/14/[address] [phone] Codi Branham higinio 09/13/2024 2:45 PM CDT Office Visit [facility] [address] [place] [address] [place] [phone] Michael Motta MD Chronic pain of right knee (Primary Dx); History of total knee arthroplasty, right 09/13/2024 1:44 PM CDT - 09/13/2024 11:59 PM CDT Hospital Encounter [facility] [address] [place] [phone] Chronic pain of right knee Discharge Disposition: Discharge to home or self care 09/04/2024 Results Follow-Up [facility] [address] [place] [address] [address] [place] [address] Alee Elizondo PA 08/31/[address] [place] [phone] Alee Elizondo PA Medical Question/Miscellaneou s 08/31/2024 Orders Only [address] [place] [phone] ProviderTania MD 08/29/2024 Nurse Triage [address] [place] [phone] Alee Elizondo PA 08/29/[address] [phone] Shailesh Dunn MD Med Refill (Ropinirol HCL 0.5MG tab) 08/24/2024 Results Follow-Up [address] [phone] Sangita Farrar PA 08/23/2024 11:30 AM FABRICATOR ARTIFICIAL BREAST Office Visit [address] [phone] Sangita Farrar PA 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) (Primary Dx); Primary osteoarthritis involving multiple joints; Encounter for medication monitoring 08/23/2024 Orders Only [facility] Information Management [address] [place] [phone] Alee Elizondo PA 08/23/[address] [phone] Sangita Farrar PA O[employer] Approved 08/21/[address] [phone] Codi Branham 08/02/2024 11:45 AM FABRICATOR ARTIFICIAL BREAST Office Visit [facility] [address] [phone] aMgaly Snider NP OWEN on CPAP (Primary Dx); OWEN (obstructive sleep apnea); PLMD (periodic limb movement disorder) 08/02/2024 Telephone [facility] [place] [address] [facility] [address] [place] [address] Shailesh Dunn MD Orders Only 08/01/2024 Orders Only [facility] [address] [place] [address] [address] [place] [address] Alee Elizondo PA Pre-diabetes (Primary Dx); Mixed hyperlipidemia; Fatigue, unspecified type 07/30/2024 9:00 AM FABRICATOR ARTIFICIAL BREAST Office Visit [address] [phone] Sangita Farrar PA 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) (Primary Dx); Primary osteoarthritis involving multiple joints; Encounter for medication monitoring 07/24/2024 2:00 PM FABRICATOR ARTIFICIAL BREAST Office Visit [facility] [address] [place] [phone] Michael Motta MD Status post total knee replacement using cement, right (Primary Dx) 07/24/2024 1:27 PM FABRICATOR ARTIFICIAL BREAST - 07/24/2024 11:59 PM FABRICATOR ARTIFICIAL BREAST Hospital Encounter [facility] [address] [place] [address] Status post total knee replacement using cement, right Discharge Disposition: Discharge to home or self care 07/24/[address] [place] [address] Alee Elizondo PA Referral Request (/) 07/12/2024 Telephone [facility] [address] [place] [phone] Michael Motta MD ret call from [...] Recorded In the past 12 months has [employer] Here, gas, oil, or water [employer] threatened to shut off services in your [...] any clubs o r organizations such as mormon groups, unions, fraternal or athletic groups, or [...] any time in the past 12 m [facility], were you homeless or living in a [...] on file Legal Sex Female 8:04 PM FABRICATOR ARTIFICIAL BREAST Gender Identity Female 02/15/2020 6:08 PM CDT [...] history exists Medical Devices Implanted Type Area Herb Digger Device Identifier Shelf Expiration Date Model / Serial / Lot [employer] Simplex P Radiopaque Full Dose Cement Bone Sterile 6191-1-010 - [id number] Implanted:Qty: 2 on 05/04/2023 by Michael Motta MD at [facility] Bone Cement Left: Knee [employer] 05/03/2025 6191-1-010 / 6191-1-001 / [id number] [employer] Simplex P Radiopaque Full Dose Cement Bone Sterile 6191-1-010 - [id number] Implanted:Qty: 2 on 05/30/2024 by Michael Motta MD at [facility] Bone Cement Right: Patella [employer] [id number] 05/03/2026 6191-1-010 / / [id number] [employer] Persona 14mm 30+ Mm Knee Tibia Taper Extension Stem [id number] - [id number] 4 - [id number] Implanted:Qty: 1 on 05/04/2023 by Michael Motta MD at [facility] Left: Knee [employer] [id number] 02/15/2033 [id number] / 64-6415-256- 14 / [id number] [employer] Persona Cemented Cruciate Retaining Knee Left 7 Narrow Component [id number] - Q18-4521-323-3 1 - [id number] Implanted:Qty: 1 on 05/04/2023 by Michael Motta MD at [facility] Left: Knee [employer] [id number] 10/25/2032 [id number] / 31-2147-121- 01 / [id number] [employer] Baseplate Tibial Knee Cemented Left Fixed Stemmed Persona Size D Tivanium [id number] - Z92-7549-715-9 1 - [id number] Implanted:Qty: 1 on 05/04/2023 by Michael Motta MD at [facility] Left: Knee [employer] [id number] 09/11/2032 [id number] / 55-3009-141- 01 / [id number] [employer] Persona 11mm Knee Left 6-7 C-D Insert Articular Vivacit-E Sterile [id number] - R69-2950-893-6 1 - [id number] Implanted:Qty: 1 on 05/04/2023 by Michael Motta MD at [facility] Left: Knee [employer] [id number] 12/28/2025 [id number] / 11-2871-705- 11 / [id number] [employer] Persona 32mm Knee Component Patellar All Poly Latex Free 58-2412-106-32 - [id number] Implanted:Qty: 1 on 05/04/2023 by Michael Motta MD at [facility] [employer] 12/19/2027 [id number] / / [id number] [employer] Baseplate Tibial Knee Cemented Right Fixed Stemmed Persona Size C Tivanium [id number] - [id number] Implanted:Qty: 1 on 05/30/2024 by Michael Motta MD at [facility] Right: Knee [employer] [id number] 03/22/2033 [id number] / / [id number] [employer] Persona 29mm Knee Component Patellar All Poly Latex Free [id number] - [id number] Implanted:Qty: 1 on 05/30/2024 by Michael Motta MD at [facility] Right: Knee [employer] [id number] 12/18/2028 [id number] / / [id number] [employer] Persona 13mm Cruciate Retain Knee Right 6-7 Cd Insert Articular Latex Free [id number] - [id number] Implanted:Qty: 1 on 05/30/2024 by Michael Motta MD at [facility] Right: Patella [employer] [id number] 05/04/2025 [id number] / / [id number] [employer] Persona Cruciate Retaining Cemented Knee Right 7 Narrow Component [id number] - [id number] Implanted:Qty: 1 on 05/30/2024 by Michael Motta MD at [facility] Right: Knee [employer] [id number] 12/27/2033 [id number] / / [id number] [employer] Persona 14mm 30+ Mm Knee Tibia Taper Extension Stem [id number] - [id number] Implanted:Qty: 1 on 05/30/2024 by Michael Motta MD at [facility] Right: Knee [employer] [id number] 04/11/2034 [id number] / / [id number] Procedures Procedure Name Priority Date/Time Associated Diagnosis Comments POC INFLUENZA A/B, COVID-19 ANTIGEN Routine 09/25/2024 11:02 AM CDT Influenza A Acute cough XR KNEE RIGHT 3 VIEWS Schedule Routine, Read Routine (OP Routine) 09/13/2024 1:48 PM CDT Chronic pain of right knee CT ABDOMEN PELVIS W CONTRAST Schedule Routine, Read Routine (OP Routine) 08/29/2024 12:23 PM FABRICATOR ARTIFICIAL BREAST COMPREHENSIVE METABOLIC PANEL Routine 08/23/2024 2:11 PM FABRICATOR ARTIFICIAL BREAST Encounter for medication monitoring CBC WITH AUTO DIFFERENTIAL Routine 08/23/2024 2:11 PM FABRICATOR ARTIFICIAL BREAST Encounter for medication monitoring SCAN - LABS 08/23/2024 VITAMIN B12 Routine 08/02/2024 7:41 AM FABRICATOR ARTIFICIAL BREAST Fatigue, unspecified type LIPID PANEL Routine 08/02/2024 7:41 AM FABRICATOR ARTIFICIAL BREAST Mixed hyperlipidemia HEMOGLOBIN A1C Routine 08/02/2024 7:41 AM FABRICATOR ARTIFICIAL BREAST Pre-diabetes COMPREHENSIVE METABOLIC PANEL Routine 08/02/2024 7:41 AM FABRICATOR ARTIFICIAL BREAST Mixed hyperlipidemia CBC WITH AUTO DIFFERENTIAL Routine 08/02/2024 7:41 AM FABRICATOR ARTIFICIAL BREAST Fatigue, unspecified type TSH Routine 08/02/2024 7:41 AM FABRICATOR ARTIFICIAL BREAST Fatigue, unspecified type ERYTHROCYTE SEDIMENTATION RATE Routine 07/30/2024 2:36 PM FABRICATOR ARTIFICIAL BREAST 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) CRP (ACUTE PHASE) Routine 07/30/2024 2:3 6 PM FABRICATOR ARTIFICIAL BREAST 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) COMPREHENSIVE METABOLIC PANEL Routine 07/30/2024 2:36 PM FABRICATOR ARTIFICIAL BREAST Encounter for medication monitoring CBC WITH AUTO DIFFERENTIAL Routine 07/30/2024 2:36 PM FABRICATOR ARTIFICIAL BREAST Encounter for medication monitoring XR KNEE RIGHT 3 VIEWS Schedule Routine, Read Routine (OP Routine) 07/24/2024 1:35 PM FABRICATOR ARTIFICIAL BREAST Status post total knee replacement using cement, right SCREENING MAMMOGRAM BILATERAL W DYLLAN Schedule Routine, Read Routine (OP Routine) 08/02/2023 7:33 AM FABRICATOR ARTIFICIAL BREAST Breast cancer screening by mammogram DEXA AXIAL SKELETON BONE DENSITY 1 OR MORE SITES Schedule Routine, Read Routine (OP Routine) 04/12/2023 8:14 AM CDT COLONOSCOPY Routine 07/27/2021 HEPATITIS C ANTIBODY Routine 06/04/2020 10:29 AM FABRICATOR ARTIFICIAL BREAST Encounter for screening for other viral diseases Chronic fatigue from Last 3 Months or Most Recently Relevant to Health Maintenance Results * (ABNORMAL) POC Influenza A/B, COVID-19 antigen (09/25/2024 11:02 AM CDT) Influenza A Ag, POC Positive(A) Negative [facility] Influenza B Ag, POC Negative Negative [facility] COVID-19 Ag POC Presumptive Negative Presumptive Negative, Invalid [facility] Nasal 09/25/2024 11:0 2 AM CDT us Jessica Collins NP POINT OF CARE TEST ORDERABLES Final Result Performing Organization Address City/State/[facility] Co de Phone Number [facility] [address] [place] [address] * XR Knee Right 3 Views (09/13/2024 [...] John Sparrow M.D. RB T: Report ID: [id number] Reading Location: [id number] Procedure Note John Sparrow MD - 09/18/2024 [...] John Sparrow M.D. RB T: Report ID: [id number] Reading Location: [place] [address] Michael Motta MD IMIke XR PROCEDURES Final Re sult * (ABNORMAL) CT Abdomen Pelvis W Contrast (08/29/2024 12:23 PM FABRICATOR ARTIFICIAL BREAST) Anatomical Region Laterality Modality Body N/A Computed Tomogra phy Historical Provider MD LUNSF[facility] CT PROCEDURES Edited Result - Final * CBC with auto differential (08/23/2024 2:11 PM FABRICATOR ARTIFICIAL BREAST) WBC 4.8 3.8 - 10.8 Thousand/u L [...] [facility] Blood 08/23/2024 2:11 PM FABRICATOR ARTIFICIAL BREAST 08/23/2024 2:11 PM FABRICATOR ARTIFICIAL BREAST Sangita OSMAN LAB BLOOD ORDERABLES Vy l Result [facility] [address] [place] [address] * (ABNORMAL) Comprehensive metabolic panel (08/23/2024 2:11 PM FABRICATOR ARTIFICIAL BREAST) Pathologist [facility] Glucose 188(H) 65 - 99 mg/dL [facility] [...] [facility] Blood 08/23/2024 2:11 PM FABRICATOR ARTIFICIAL BREAST 08/23/2024 2:11 PM FABRICATOR ARTIFICIAL BREAST Sangita OSMAN LAB BLOOD ORDERABLES Vy l Result [facility] [address] [place] [address] * SCAN - LABS (08/23/2024) Alee OSMAN Final Resu lt * (ABNORMAL) CBC with auto differential (08/02/2024 7:41 AM FABRICATOR ARTIFICIAL BREAST) WBC 4.0 3.8 - 10.8 Thousand/u L [...] [facility] Blood 08/02/2024 7:41 AM FABRICATOR ARTIFICIAL BREAST 08/02/2024 7:42 AM FABRICATOR ARTIFICIAL BREAST us Alee OSMAN LAB BLOOD ORDERABLES Final Result [facility] [address] [address] [address] * TSH (08/02/2024 7:41 AM FABRICATOR ARTIFICIAL BREAST) TSH 1.57 0.40 - 4.50 mIU/L [facility] Blood 08/02/2024 7:41 AM FABRICATOR ARTIFICIAL BREAST 08/02/2024 7:42 AM FABRICATOR ARTIFICIAL BREAST Alee OSMAN LAB BLOOD ORDERABLES Final Result Performing Organization Address [facility] Co de Phone Number [facility] [address] [address] [address] * Hemoglobin A1c (08/02/2024 7:41 AM FABRICATOR ARTIFICIAL BREAST) Hgb A1C 5.4 <5.7 % of total Hgb [facility] Comment: For the purpose of screening for the presence of diabetes: <5.7% Consistent with the absence of diabetes 5.7-6.4% Consistent with increased risk for diabetes (prediabetes) > or =6.5% Consistent with diabetes This assay result is consistent with a decreased risk of diabetes. Currently, no consensus exists regarding use of hemoglobin A1c for diagnosis of diabetes in children. According to [place] Diabetes Association (ADA) guidelines, hemoglobin A1c <7.0% represents optimal control in non- diabetic patients. Different metrics may apply to specific patient populations. Standards of Medical Care in Diabetes(ADA). Blood 08/02/2024 7:41 AM FABRICATOR ARTIFICIAL BREAST 08/02/2024 7:42 AM FABRICATOR ARTIFICIAL BREAST Alee OSMAN LAB BLOOD ORDERABLES Final Result Performing Organization Address [facility] Co de Phone Number [facility] [address] [place] [address] * Vitamin B12 (08/02/2024 7:41 AM FABRICATOR ARTIFICIAL BREAST) Vitamin B12 349 200 - 1,100 pg/mL [...] will have symptoms. Blood 08/02/2024 7:41 AM FABRICATOR ARTIFICIAL BREAST 08/02/2024 7:42 AM FABRICATOR ARTIFICIAL BREAST Alee OSMAN LAB BLOOD ORDERABLES Final Result Performing Organization Address [facility] Co de Phone Number [facility] [address] [address] [address] * Lipid panel (08/02/2024 7:41 AM FABRICATOR ARTIFICIAL BREAST) Cholesterol 127 <200 mg/dL [facility] [...] LDL-C. Barry FREITAS et al. ELAINE. 2013;310(19): 0275-8084 (http://education.AWAK/faq/ORE356) Chol/HDL ratio 1.7 <5.0 (calc) [facility] Non-HDL, (LDL+VLDL) 52 <130 mg/dL (calc) [facility] Comment: For patients with diabetes plus 1 major ASCVD risk factor, treating to a non-HDL-C goal of <100 mg/dL (LDL-C of <70 mg/dL) is considered a therapeutic option. Blood 08/02/2024 7:41 AM FABRICATOR ARTIFICIAL BREAST 08/02/2024 7:42 AM FABRICATOR ARTIFICIAL BREAST Alee OSMAN LAB BLOOD ORDERABLES Final Result Performing Organization Address [facility] Co de Phone Number [facility] [address] [address] [address] * Comprehensive metabolic panel (08/02/2024 7:41 AM FABRICATOR ARTIFICIAL BREAST) Glucose 99 65 - 99 mg/dL [facility] [...] [facility] Blood 08/02/2024 7:41 AM FABRICATOR ARTIFICIAL BREAST 08/02/2024 7:42 AM FABRICATOR ARTIFICIAL BREAST us Alee OSMAN LAB BLOOD ORDERABLES Final Result [facility] [address] [address] [place] [address] * CBC with auto differential (07/30/2024 2:36 PM FABRICATOR ARTIFICIAL BREAST) WBC 6.4 3.8 - 10.8 Thousand/u L [...] [facility] Blood 07/30/2024 2:36 PM FABRICATOR ARTIFICIAL BREAST 07/30/2024 2:36 PM FABRICATOR ARTIFICIAL BREAST us Sangita OSMAN LAB BLOOD ORDERABLES Vy l Result [facility] [address] [place] [address] * Erythrocyte sedimentation rate (07/30/2024 2:36 PM FABRICATOR ARTIFICIAL BREAST) Pathologist [facility] Erythrocyte sedimentation rate 11 < OR = 30 mm/h [facility] Blood 07/30/2024 2:36 PM FABRICATOR ARTIFICIAL BREAST 07/30/2024 2:36 PM FABRICATOR ARTIFICIAL BREAST Sangita Magalijose Farrar PA LAB BLOOD ORDERABLES Vy l Result Performing Organization Address [facility]/ZIP Co de Phone Number [facility] [address] [place] [address] * CRP (acute phase) (07/30/2024 2:36 PM FABRICATOR ARTIFICIAL BREAST) Pathologist [facility] C-RP <3.0 <8.0 mg/L [facility] Blood 07/30/2024 2:36 PM FABRICATOR ARTIFICIAL BREAST 07/30/2024 2:36 PM FABRICATOR ARTIFICIAL BREAST [facility] [place] LAB BLOOD ORDERABLES Vy l Result Performing Organization Address [facility] de Phone Number [facility] [address] [place] [address] * (ABNORMAL) Comprehensive metabolic panel (07/30/2024 2:36 PM FABRICATOR ARTIFICIAL BREAST) Pathologist [facility] Glucose 115(H) 65 - 99 mg/dL [facility] [...] [facility] Blood 07/30/2024 2:36 PM FABRICATOR ARTIFICIAL BREAST 07/30/2024 2:36 PM FABRICATOR ARTIFICIAL BREAST us Sangita OSMAN LAB BLOOD ORDERABLES Vy l Result [facility] [address] [place] [address] * XR Knee Right 3 Views (07/24/2024 1:35 PM FABRICATOR ARTIFICIAL BREAST) Anatomical Region Laterality Modality Lower Extremities, Knee Right Computed Radiography 07/25/2024 7:16 AM FABRICATOR ARTIFICIAL BREAST Narrative 07/25/2024 7:18 AM FABRICATOR ARTIFICIAL BREAST EXAM DESCRIPTION: XR KNEE RIGHT 3 VIEWS [...] signed by Elton CABA T: Report ID: [id number] Reading Location: [id number] Procedure Note Elton Jonas MD - 07/25/2024 [...] signed by Elton CABA T: Report ID: [id number] Reading Location: [id number] Michael Motta MD IMG XR PROCEDURES Final Re sult * Screening Mammogram Bilateral W Dyllan (08/02/2023 7:33 AM FABRICATOR ARTIFICIAL BREAST) Anatomical Region Laterality Modality Breast Bilateral Mammography [...] * Hepatitis C antibody (06/04/2020 10:29 AM FABRICATOR ARTIFICIAL BREAST) Hep C Ab NON-REACTI VE NON-REACT ALEXYS [facility] SIGNAL TO CUT-OFF 0.02 <1.00 [facility] Comment: HCV antibody was non-reactive. There is no laboratory evidence of HCV infection. In most cases, no further action is required. However, if recent HCV exposure is suspected, a test for HCV RNA (test code 69091) is suggested. For additional information please refer to http://education.[employer]/faq/EZJ77e8 (This link is being provided for informational/ educational purposes only.) Blood specimen (specimen) 06/04/2020 10:29 AM FABRICATOR ARTIFICIAL BREAST 06/04/2020 10:30 AM FABRICATOR ARTIFICIAL BREAST Sangita OSMAN LAB MICROBIOLOGY - GENERA L ORDERABLES Final Result [facility] [address] [place] [address] from Last 3 Months or Most Recently Relevant to Health Maintenance Insurance [facility] MEDICARE ADVANTAGE Advance Directives For more information, please contact: [phone] Documents on File Type Date Recorded Patient Chief Specialist Leed Expl anation ADVANCE DIRECTIVE 05/17/2024 2:13 PM Yonis r of Sampler [employer] * Full Code (Latest Code Status on File) Date Activated Date Inactivated Comments 05/30/2024 12:38 PM 06/05/2024 6:31 PM * Full Code Date Activated Date Inactivated Comments 05/04/2023 2:33 PM 05/07/2023 3:07 AM * Full Code Date Activated Date Inactivated Comments 03/22/2021 4:39 PM 03/25/2021 6:17 PM Care Teams Journeyman Power Plant Operator Relationship Specialty Start Date End Date Alee Elizondo PA [address] [place] [address] PCP - General Internal Medicine 07/05/23 Sharan Linton MD Referring Physician Gastroenterology 10/31/18 Martha Starks MD Consulting Physician Cardiology 12/24/20 Shama Hines MD [address] [facility] [address], [address] [address] Consulting Physician Pain Management 01/19/21 Artis Grewal MD [address] [place] [address] Consulting Physician Rheumatology 01/30/21 Amy Mayes NP [address] [address] Nurse Practitioner Cardiovascular Disease 04/20/24 Shailesh Dunn MD [address] [address] Consulting Physician Pulmonary Disease 04/20/24 Sangita Farrar PA [address] [place] [address] Physician Bait Maker Rheumatology 05/15/24
--- OUTSIDE RECORDS SUMMARY | 2024-10-02 13:27 | XMS_ITS | Encounter Summary ---
Author Organization [facility] Address [address] [place] [address] Care Team Providers Care Compound Specialist Name Role Phone Sharan Linton MD Unavailable [phone] Martha Starks MD Unavailable [phone] Shama Hines MD Unavailable Artis Grewal MD Unavailable [phone] Alee Elizondo Primary Care Provider [phone] Amy Mayes NP Unavailable [phone] Shailesh Dunn MD Unavailable [phone] Sangita Farrar Unavailable [phone] Encounter Details Date Type Department Care Team (Late st Contact Info) Description 03/02/2024 Telephone [facility] Family Medicine [address] [place] [address] Alee Elizondo PA [address] [place] [address] Social History Tobacco Use Types Packs/Day Years Used Date Smoking Tobacco: Never Smokeless Tobacco: Never Comments:Never used Alcohol Use Standard Drinks/Week Comments No 0 (1 standard drink = 0.6 oz pur e alcohol) [facility] Utilities Answer Date Recorded In the past 12 months has [employer], gas, oil, or water company threatened to [...] often do you attend chur ch or congregational services? More than 4 times per year 05/27/2023 Do you belong to any clubs o r organizations such as sabianism groups, unions, fraternal or athletic groups, or [...] place to sleep or slept in a group home (including now)? 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 Gender Identity Female 02/15/2020 6:08 PM [...] documented as of this encounter Care Teams Compound Specialist Relationship Specialty Start Date End Date Alee Elizondo PA [address] [facility] [address] [place] [address] PCP - General Internal Medicine 07/05/23 Sharan Linton MD Referring Physician Gastroenterology 10/31/18 Martha Starks MD Consulting Physician Cardiology 12/24/20 Shama Hines MD [address] [address] Consulting Physician Pain Management 01/19/21 Artis Grewal MD [address] [place] [address] Consulting Physician Rheumatology 01/30/21 Amy Mayes NP [address] [address] Nurse Practitioner Cardiovascular Disease 04/20/24 Shailesh Dunn MD [address] [address] Consulting Physician Pulmonary Disease 04/20/24 Sangita Farrar PA [address] [place] [address] Physician Ship'S Officer Rheumatology 05/15/24 documented as of this encounter
--- OUTSIDE RECORDS SUMMARY | 2024-10-02 13:27 | XMS_ITS | Encounter Summary ---
Author Organization [facility] Facility Care Team Providers Care Fan Balancer Name Role Phone Alee Elizondo Primary Care Provider + [phone] Sharan Linton MD Unavailable +[phone] Taisha Gomez MD Unavailable +[phone] Parag Soto MD Unavailable [phone] RaziaMartha singh MD Unavailable +[phone] Puneet Uribe MD Unavailable +[phone] Shama Hiens MD Unavailable Artis Grewal MD Unavailable [phone] Harrison Pena RN Unavailable +[phone] Nafisa Gregg RN Unavailable +[phone] Tho Kelsey MD Primary Care Provider +[phone] Alee Elizondo Primary Care Provider + [phone] Amy Mayes NP Unavailable +[phone] Shailesh Dunn MD Unavailable +[phone] Sangita Farrar Unavailable +[phone] Encounter Details Date Type Department Care Team (Latest Contact Info) Description 10/15/2016 Orders Only [facility] CLINCONV Provider, MD Tania [address] [place] [address] Social History Tobacco Use Types Packs/Day Years Used Date Smoking Tobacco: Never Alcohol Use Standard Drinks/Week Comments No 0 (1 standard drink = 0.6 oz pur e alcohol) Comments Unknown Sex and Gender Information Value Date Recorded Sex Assigned at Not on file 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 Gender Identity Female 02/15/2020 6:08 PM CDT [...] COVID: Suspected 08/13/2021 08/14/2021 08/14/2021 3:06 AM FACILITY MAINTENANCE WORKER COVID: Suspected 08/14/2021 08/14/2021 08/15/2021 3:05 AM FACILITY MAINTENANCE WORKER COVID: Suspected 08/14/2021 08/14/2021 08/15/2021 6:25 AM FACILITY MAINTENANCE WORKER COVID: Suspected 06/02/2023 06/02/2023 06/02/2023 7:25 PM FACILITY MAINTENANCE WORKER COVID: Suspected 07/26/2023 07/26/2023 07/26/2023 3:10 PM FACILITY MAINTENANCE WORKER COVID: Suspected 09/25/2024 09/25/2024 09/25/2024 11:03 AM CDT Influenza, adult 09/25/2024 09/25/2024 10/02/2024 3:05 AM CDT documented as of this encounter Care Teams Fan Balancer Relationship Specialty Start Date End Date Alee Elizondo PA 10[address] [facility] 500 [place] [address] PCP - General Internal Medicine 02/01/17 06/29/23 Tho Kelsey MD 4600 [facility] [address] [facility] [address] [place] [address] PCP - General Family Medicine 06/30/23 07/04/23 Alee Elizondo PA [address] [place] [address] [place] [address] PCP - General Internal Medicine 07/05/23 Sharan Linton MD [address] [place] [address] [place] [address] Referring Physician Gastroenterology 10/31/18 Taisha Gomez MD [address] [facility] [address] [place] [address] [place] [address] Referring Physician Pulmonary Disease 10/31/18 12/23/20 Parag Soto MD [address] [place] [address] [place] [address] Referring Physician Rheumatology 10/31/18 12/23/20 Martha Starks MD [address] [place] [address] [place] [address] Consulting Physician Cardiology 12/24/20 Puneet Uribe MD [address] [facility] [address] [place] [address] Consulting Physician Rheumatology 12/24/20 01/29/21 Shama Hines MD 4700 [facility], [facility] [address] [place] [address] Consulting Physician Pain Management 01/19/21 Artis Grewal MD [address] [place] [address] Consulting Physician Rheumatology 01/30/21 Harrison Pena, JULIUS [address] [place] [address] Consignee 05/30/23 09/04/23 Nafisa Gregg, JULIUS [address] [place] [address] [facility] [address] [place] [address] Consignee 06/06/23 06/12/23 Amy Mayes NP [address] [facility] 102 [place] [address] Nurse Practitioner Cardiovascular Disease 04/20/24 Shailesh Dunn MD 4600 [facility] 200 [place] [address] Consulting Physician Pulmonary Disease 04/20/24 Sangita Farrar PA [address] [place] [address] Physician Vacuum Truck Driver Rheumatology 05/15/24 documented as of this encounter
--- OUTSIDE RECORDS SUMMARY | 2024-10-02 13:27 | XMS_ITS | Encounter Summary ---
Author Organization [facility] Facility Care Team Providers Care Artificial Breast Fabricator Name Role Phone Alee Elizondo Primary Care Provider + [phone] Sharan Linton MD Unavailable +[phone] Taisha Gomez MD Unavailable +[phone] Parag Soto MD Unavailable +[phone] [facility] MD Unavailable +[phone] Puneet Uribe MD Unavailable +[phone] Shama Hines MD Unavailable Artis Grewal MD Unavailable [phone] Harrison Pena RN Unavailable +[phone] Nafisa Gregg RN Unavailable +[phone] Tho Kelsey MD Primary Care Provider +[phone] Alee Elizondo Primary Care Provider + [phone] Amy Mayes NP Unavailable +[phone] Shailesh Dunn MD Unavailable +[phone] Sangita Farrar Unavailable +[phone] Encounter Details Date Type Department Care Team (Latest Contact Info) Description 09/14/2016 Orders Only [facility] CLINCONV Provider, MD Tania [address] [place] [address] Social History Tobacco Use Types Packs/Day Years Used Date Smoking Tobacco: Never Alcohol Use Standard Drinks/Week Comments No 0 (1 standard drink = 0.6 oz pur e alcohol) Comments Unknown Sex and Gender Information Value Date Recorded Sex Assigned at Not on file Legal Sex Female 8:04 PM DIRECTOR SALES AND TRADE MARKETING Gender Identity Female 02/15/2020 6:08 PM CDT Sexual Orientation Not on file documented as of this encounter Plan of Treatment Not on file documented as of this encounter Procedures Procedure Name Priority Date/Time Associated Diagnosis Comments PROCEDURE - RESULT 09/09/2016 12 :00 AM DIRECTOR SALES AND TRADE MARKETING documented in this encounter Results * PROCEDURE - RESULT (09/09/2016 12:00 AM DIRECTOR SALES AND TRADE MARKETING) Narrative 09/09/2016 12:00 AM DIRECTOR SALES AND TRADE MARKETING Ordered by an unspecified provider. Historical Provider MD Final Res ult documented in this encounter Visit Diagnoses Not on filedocumented in this encounter Additional Health Concerns Infection Onset Date Last Indicated Resolved Time COVID: Suspected 08/13/2021 08/14/2021 08/14/2021 3:06 AM DIRECTOR SALES AND TRADE MARKETING COVID: Suspected 08/14/2021 08/14/2021 08/15/2021 3:05 AM DIRECTOR SALES AND TRADE MARKETING COVID: Suspected 08/14/2021 08/14/2021 08/15/2021 6:25 AM DIRECTOR SALES AND TRADE MARKETING COVID: Suspected 06/02/2023 06/02/2023 06/02/2023 7:25 PM DIRECTOR SALES AND TRADE MARKETING COVID: Suspected 07/26/2023 07/26/2023 07/26/2023 3:10 PM DIRECTOR SALES AND TRADE MARKETING COVID: Suspected 09/25/2024 09/25/2024 09/25/2024 11:03 AM CDT Influenza, adult 09/25/2024 09/25/2024 10/02/2024 3:05 AM CDT documented as of this encounter Care Teams Artificial Breast Fabricator Relationship Specialty Start Date End Date Alee Elizondo PA 1095 [facility] 500 [place] [address] PCP - General Internal Medicine 02/01/17 06/29/23 Tho Kelsey MD [address] [facility] [address] [facility] 400 [place] [address] PCP - General Family Medicine 06/30/23 07/04/23 Alee Elizondo PA [address] [place] [address] [place] [address] PCP - General Internal Medicine 07/05/23 Sharan Linton MD [address] [place] [address] [place] [address] Referring Physician Gastroenterology 10/31/18 Taisha Gomez MD [address] [place] [address] [place] [address] Referring Physician Pulmonary Disease 10/31/18 12/23/20 Parag Soto MD [address] [place] [address] [place] [address] Referring Physician Rheumatology 10/31/18 12/23/20 Martha Starks MD [address] [place] [address] [place] [address] Consulting Physician Cardiology 12/24/20 Puneet Uribe MD [address] [facility] 110 [place] [address] Consulting Physician Rheumatology 12/24/20 01/29/21 Shama Hines MD 4700 [facility], [facility] 230 [place] [address] Consulting Physician Pain Management 01/19/21 Artis Grewal MD [address] [place] [address] Consulting Physician Rheumatology 01/30/21 Harrison Pena, JULIUS [address] [place] [address] Flavor Extractor 05/30/23 09/04/23 Nafisa Gregg, JULIUS [address] [place] [address] 300 [place] [address] Flavor Extractor 06/06/23 06/12/23 Amy Mayes NP [address] [facility] [address] [address] Nurse Practitioner Cardiovascular Disease 04/20/24 Shailesh Dunn MD 4600 [facility] 200 [place] [address] Consulting Physician Pulmonary Disease 04/20/24 Sangita Farrar PA [address] [place] [address] Physician German Professor Rheumatology 05/15/24 documented as of this encounter
[2024-10-02 14:32] LABS: Add Urine Microscopic? NO; Appearance Urine Clear (Clear); Bilirubin Urine Negative (Negative); Blood Urine Negative (Negative); Color Urine Yellow (Yellow); Glucose Urine UA Negative (Negative); Ketones Urine Negative (Negative); Leukocyte Esterase Ur Negative LEU/UL (Negative); Nitrate Urine Negative (Negative); Protein Urine Negative (Negative); Specific Grav Ur 1.007 (1.001-1.035); Urobilinogen Urine 0.2 mg/dL (<2.0); pH Urine 6.5 (5.0-9.0)
--- OUTSIDE RECORDS SUMMARY | 2024-10-02 14:35 | XMS_ITS | Encounter Summary ---
Author Organization [facility] Healthcare Address [address] [place] [address] Care Team Providers Care Associate Doctor Name Role Phone Sharan Linton MD Unavailable [phone] Martha Starks MD Unavailable [phone] Shama Hines MD Unavailable Artis Grewal MD Unavailable [phone] Alee Elizondo Primary Care Provider +[phone] Amy Mayes NP Unavailable +[phone] Shailesh Dunn MD Unavailable +[phone] Sangita Farrar Unavailable +[phone] Encounter Details Date Type Department Care Team (Late st Contact Info) Description 10/03/2023 Orders Only [facility] Health Information Management [address] [place] [address] Scanning, Provider Social History Tobacco Use Types Packs/Day Years Used Date Smoking Tobacco: Never Smokeless Tobacco: Never Comments:Never used Alcohol Use Standard Drinks/Week Comments No 0 (1 standard drink = 0.6 oz pur e alcohol) [facility] Utilities Answer Date Recorded In [...] often do you attend chur ch or zoroastrianism services? More than 4 times per year 05/27/2023 Do you belong to any clubs o r organizations such as christian groups, unions, fraternal or athletic groups, or [...] on file Legal Sex Female 8:04 PM PORTFOLIO SPECIALIST Gender Identity Female 02/15/2020 6:08 PM [...] documented as of this encounter Care Teams Associate Doctor Relationship Specialty Start Date End Date Alee Elizondo PA 1095 [facility] [address] [place] [address] PCP - General Internal Medicine 07/05/23 Sharan Linton MD Referring Physician Gastroenterology 10/31/18 Martha Starks MD Consulting Physician Cardiology 12/24/20 Shama Hines MD 4700 [facility], [address] [address] Consulting Physician Pain Management 01/19/21 Artis Grewal MD [address] [place] [address] Consulting Physician Rheumatology 01/30/21 Amy Mayes NP [address] [address] Nurse Practitioner Cardiovascular Disease 04/20/24 Shailesh Dunn MD 4600 [facility] [address] [address] Consulting Physician Pulmonary Disease 04/20/24 Sangita Farrar PA [address] [place] [address] Physician Live Out Nanny Rheumatology 05/15/24 documented as of this encounter
--- OUTSIDE RECORDS SUMMARY | 2024-10-02 14:35 | XMS_ITS | Clinical Summary ---
Author Organization [facility] Address [address] [place] [address] Care Team Providers Care Shower Enclosure Installer Name Role Phone Unavailable Primary Care Provider [...] C 1973 Mammogram Screening 1995 COVID-19 Vaccine (2023-2 5 season) 2024 04/14/2023, 03/30/2022, 10/21/2021 RSV Immunization or 60+ Years (1 - 1-dose 75+ series) 2030 DTaP, Tdap and Td Vaccines ( 3 - Td or Tdap) 03/08/2031 03/08/2021, 08/20/2019 Zoster Vaccines Completed 12/13/2017, 12/12/2017, 10/10/2017 Pneumococcal Vaccine: 65+ Years Completed 12/21/2022, 07/06/2014, 08/21/2009 Dexa Scan (General) Completed 04/12/2023 Meningococcal B Vaccine Aged Out No l onger eligible based on patient's age to complete this topic Meningococcal Vaccine Aged Out No tammy beni eligible based on patient's age to complete this topic RSV Immunizations Under 20 Months Aged Out No longer eligible b ased on patient's age to complete this topic
--- OUTSIDE RECORDS SUMMARY | 2024-10-02 14:35 | XMS_ITS | Encounter Summary ---
Author Organization [facility] Facility Care Team Providers Care Millwright Supervisor Name Role Phone Alee Elizondo Primary Care Provider + [phone] Sharan Linton MD Unavailable [phone] Taisha Gomez MD Unavailable [phone] Parag Soto MD Unavailable [phone] RaziaMartha singh MD Unavailable [phone] Puneet Uribe MD Unavailable +[phone] Shama Hines MD Unavailable Artis Grewal MD Unavailable [phone] Harrison Pena RN Unavailable +[phone] Nafisa Gregg RN Unavailable Tho Kelsey MD Primary Care Provider [phone] Alee Elizondo Primary Care Provider + [phone] Amy Mayes NP Unavailable +[phone] Shailesh Dunn MD Unavailable +[phone] Sangita Farrar Unavailable +[phone] Encounter Details Date Type Department Care Team (Latest Contact Info) Description 04/19/2016 Orders Only [facility] CLINCONV Provider, MD Tania [address] [place] [address] Social History Tobacco Use Types Packs/Day Years Used Date Smoking Tobacco: Never Alcohol Use Standard Drinks/Week Comments No 0 (1 standard drink = 0.6 oz pur e alcohol) Comments Unknown Sex and Gender Information Value Date Recorded Sex Assigned at Not on file Legal Sex Female 8:04 PM DEPUTY K 9 Gender Identity Female 02/15/2020 6:08 PM CDT [...] COVID: Suspected 08/13/2021 08/14/2021 08/14/2021 3:06 AM DEPUTY K 9 COVID: Suspected 08/14/2021 08/14/2021 08/15/2021 3:05 AM DEPUTY K 9 COVID: Suspected 08/14/2021 08/14/2021 08/15/2021 6:25 AM DEPUTY K 9 COVID: Suspected 06/02/2023 06/02/2023 06/02/2023 7:25 PM DEPUTY K 9 COVID: Suspected 07/26/2023 07/26/2023 07/26/2023 3:10 PM DEPUTY K 9 COVID: Suspected 09/25/2024 09/25/2024 09/25/2024 11:03 AM CDT Influenza, adult 09/25/2024 09/25/2024 10/02/2024 3:05 AM CDT documented as of this encounter Care Teams Millwright Supervisor Relationship Specialty Start Date End Date Alee Elizondo PA 1095 [facility] 500 [place] [address] PCP - General Internal Medicine 02/01/17 06/29/23 Tho Kelsey MD [address] [facility] [address] [facility] 400 [place] [address] PCP - General Family Medicine 06/30/23 07/04/23 Alee Elizondo PA [address] [place] [address] [place] [address] PCP - General Internal Medicine 07/05/23 Sharan Linton MD [address] [place] [address] [place] [address] Referring Physician Gastroenterology 10/31/18 Taisha Gomez MD [address] [facility] [address] [place] [address] [place] [address] Referring Physician Pulmonary Disease 10/31/18 12/23/20 Parag Soto MD [address] [place] [address] [place] [address] Referring Physician Rheumatology 10/31/18 12/23/20 Martha Starks MD [address] [place] [address] [place] [address] Consulting Physician Cardiology 12/24/20 Puneet Uribe MD [address] [facility] 110 [place] [address] Consulting Physician Rheumatology 12/24/20 01/29/21 Shama Hines MD 4700 [facility], [facility] 230 [place] [address] Consulting Physician Pain Management 01/19/21 Artis Grewal MD [address] [place] [address] Consulting Physician Rheumatology 01/30/21 Harrison Pena, JULIUS [address] [place] [address] Seafood Preparer 05/30/23 09/04/23 Nafisa Gregg, JULIUS [address] [place] [address] [facility] 300 [place] [address] Seafood Preparer 06/06/23 06/12/23 Amy Mayes NP [address] [facility] 102 [place] [address] Nurse Practitioner Cardiovascular Disease 04/20/24 Shailesh Dunn MD [address] [facility] 200 [place] [address] Consulting Physician Pulmonary Disease 04/20/24 Sangita Farrar PA [address] [place] [address] Physician Product Safety Technical Assistant Rheumatology 05/15/24 documented as of this encounter
--- OUTSIDE RECORDS SUMMARY | 2024-10-02 14:35 | XMS_ITS | Encounter Summary ---
Author Organization [facility] Facility Care Team Providers Care Office Cashier Name Role Phone Alee Elizondo Primary Care Provider + [phone] Sharan Linton MD Unavailable [phone] Taisha Gomez MD Unavailable [phone] Parag Soto MD Unavailable [phone] RaziaMartha singh MD Unavailable +[phone] Puneet Uribe MD Unavailable +[phone] Shama Hines MD Unavailable Artis Grewal MD Unavailable [phone] Harrison Pena RN Unavailable +[phone] Nafisa Gregg RN Unavailable +[phone] Tho Kelsey MD Primary Care Provider +[phone] Alee Elizondo Primary Care Provider + [phone] Amy Mayes NP Unavailable +[phone] Shailesh Dunn MD Unavailable +[phone] Sangita Farrar Unavailable +[phone] Encounter Details Date Type Department Care Team (Latest Contact Info) Description 09/29/2015 Orders Only [facility] CLINCONV Provider, MD Tania [address] [place] [address] Social History Tobacco Use Types Packs/Day Years Used Date Smoking Tobacco: Never Assessed Comments Unknown Sex and Gender Information Value Date Recorded Sex Assigned at Not on file Legal Sex Female 8:04 PM CASINO ASSISTANT MANAGER Gender Identity Female 02/15/2020 6:08 PM [...] COVID: Suspected 08/13/2021 08/14/2021 08/14/2021 3:06 AM CASINO ASSISTANT MANAGER COVID: Suspected 08/14/2021 08/14/2021 08/15/2021 3:05 AM CASINO ASSISTANT MANAGER COVID: Suspected 08/14/2021 08/14/2021 08/15/2021 6:25 AM CASINO ASSISTANT MANAGER COVID: Suspected 06/02/2023 06/02/2023 06/02/2023 7:25 PM CASINO ASSISTANT MANAGER COVID: Suspected 07/26/2023 07/26/2023 07/26/2023 3:10 PM CASINO ASSISTANT MANAGER COVID: Suspected 09/25/2024 09/25/2024 09/25/2024 11:03 AM CDT Influenza, adult 09/25/2024 09/25/2024 10/02/2024 3:05 AM CDT documented as of this encounter Care Teams Office Cashier Relationship Specialty Start Date End Date Alee Elizondo PA 1095 [facility] 500 [place] [address] PCP - General Internal Medicine 02/01/17 06/29/23 Tho Kelsey MD 4600 [facility] 400 [place] [address] PCP - General Family Medicine 06/30/23 07/04/23 Alee Elizondo PA [address] [place] [address] [place] [address] PCP - General Internal Medicine 07/05/23 Sharan Linton MD [address] [place] [address] [place] [address] Referring Physician Gastroenterology 10/31/18 Taisha Gomez MD [address] [place] [address] [place] [address] Referring Physician Pulmonary Disease 10/31/18 12/23/20 Parag Soto MD [address] [place] [address] [place] [address] Referring Physician Rheumatology 10/31/18 12/23/20 Martha Starks MD [address] [place] [address] [place] [address] Consulting Physician Cardiology 12/24/20 Puneet Uribe MD [address] [facility] [address] [place] [address] Consulting Physician Rheumatology 12/24/20 01/29/21 Shama Hines MD 4700 [facility], [facility] [address] [place] [address] Consulting Physician Pain Management 01/19/21 Artis Grewal MD [address] [place] [address] Consulting Physician Rheumatology 01/30/21 Harrison Pena, JULIUS [address] [place] [address] Roof Cement And Paint Maker 05/30/23 09/04/23 Nafisa Gregg, JULIUS [address] [place] [address] [facility] 300 [place] [address] Roof Cement And Paint Maker 06/06/23 06/12/23 Amy Mayes NP [address] [address] Nurse Practitioner Cardiovascular Disease 04/20/24 Shailesh Dunn MD 4600 [facility] [address] [address] Consulting Physician Pulmonary Disease 04/20/24 Sangita Farrar PA [address] [place] [address] Physician Senior Payroll Manager Rheumatology 05/15/24 documented as of this encounter
--- OUTSIDE RECORDS SUMMARY | 2024-10-02 14:35 | XMS_ITS | Encounter Summary ---
Author Organization [facility] Healthcare Address [address] [place] [address] Care Team Providers Care Sanding Line Operator Name Role Phone Sharan Linton MD Unavailable [phone] Martha Starks MD Unavailable +[phone] Shama Hines MD Unavailable Artis Grewal MD Unavailable [phone] Alee Elizondo Primary Care Provider +[phone] Amy Mayes NP Unavailable +[phone] Shailesh Dunn MD Unavailable +[phone] Sangita Farrar Unavailable +[phone] Encounter Details Date Type Department Care Team (Late st Contact Info) Description 10/11/2023 Orders Only [facility] Health Information Management [address] [place] [address] Scanning, Provider Social History Tobacco Use Types Packs/Day Years Used Date Smoking Tobacco: Never Smokeless Tobacco: Never Comments:Never used Alcohol Use Standard Drinks/Week Comments No 0 (1 standard drink = 0.6 oz pur e alcohol) [facility] Utilities Answer Date Recorded In [...] often do you attend chur ch or pentecostalism services? 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 PM WAREHOUSE TEAM LEADER Gender Identity Female 02/15/2020 6:08 PM [...] documented as of this encounter Care Teams Sanding Line Operator Relationship Specialty Start Date End Date Alee Elizondo PA 1095 [facility] 500 [place] [address] PCP - General Internal Medicine 07/05/23 Sharan Linton MD Referring Physician Gastroenterology 10/31/18 Martha Starks MD Consulting Physician Cardiology 12/24/20 Shama Hines MD [address] [place] [address] [facility] [address] [place] [address] Consulting Physician Pain Management 01/19/21 Artis Grewal MD [address] [place] [address] Consulting Physician Rheumatology 01/30/21 Amy Mayes NP [address] [address] Nurse Practitioner Cardiovascular Disease 04/20/24 Shailesh Dunn MD 4600 [facility] [address] [address] Consulting Physician Pulmonary Disease 04/20/24 Sangita Farrar PA [address] [place] [address] Physician Health And Safety Specialist Rheumatology 05/15/24 documented as of this encounter
--- OUTSIDE RECORDS SUMMARY | 2024-10-02 14:35 | XMS_ITS | Encounter Summary ---
Author Organization [facility] Healthcare Address [address] [place] [address] Care Team Providers Care Utility Operator Name Role Phone Sharan Linton MD Unavailable [phone] Martha Starks MD Unavailable [phone] Shama Hines MD Unavailable Artis Grewal MD Unavailable [phone] Alee Elizondo Primary Care Provider [phone] Amy Mayes NP Unavailable [phone] Shailesh Dunn MD Unavailable [phone] Sangita Farrar Unavailable [phone] Reason for Visit * Reason Onset Date Comments Medical Question/Miscellaneous 08/31/2024 Encounter Details Date Type Department Care Team (Late st Contact Info) Description 08/31/2024 Telephone [facility] Family Medicine [address] [place] [address] Alee Elizondo PA [address] [place] [address] Medical Question/Miscellaneous Social History Tobacco Use Types Packs/Day Years Used Date Smoking Tobacco: Never Smokeless Tobacco: Never Comments:Never used Alcohol Use Standard Drinks/Week Comments No 0 (1 standard drink = 0.6 oz pur e alcohol) [facility] Utilities Answer Date Recorded In the [...] often do you attend chur ch or judaism services? 1 to 4 times per year 05/30/2024 Do you belong to any clubs o r organizations such as hinduism groups, unions, fraternal or athletic groups, or [...] place to sleep or slept in a penitentiary (including now)? No 05/27/2023 PHQ-9 Answer Date [...] any time in the past 12 m [facility], were you homeless or living in a penitentiary (including now)? No 05/30/2024 Personal Safety Answer Date Recorded Have you ever been in or are you currently in a harmful physical or emotional relationship or is someone making you feel afraid or unsafe? Denies 05/30/2024 Comments No Sex and Gender Information Value Date Recorded Sex Assigned at Not on file Legal Sex Female 8:04 PM WATERSHED ENGINEER Gender Identity Female 02/15/2020 6:08 PM CDT Sexual Orientation Not on file documented as of this encounter Miscellaneous Notes * Telephone Encounter - Yovana Camacho LPN - 09/03/2024 10:36 AM WATERSHED ENGINEER [employer] Medicare insurance does not require referrals. Sent a Referly message to pt to inform her of this. RSHED ENGINEER * Telephone Encounter - Mariya Cassidy - 08/31/2024 1:51 PM CST Medical Question/Miscellaneous Caller???s Concern: Patient just updated their insurance to [facility] Medicare from [employer]. They have a referral already in place for Dr. Katsikas that was placed today. They will need to be updated to [facility] Medicare and faxed to Dr Thao. Fax #: [phone] Does message need to be routed? Yes-Action Needed RSHED ENGINEER documented in this encounter Plan of Treatment Not on file documented as of this encounter Visit Diagnoses Not on filedocumented in this encounter Additional Health Concerns Infection Onset Date Last Indicated Resolved Time COVID: Suspected 09/25/2024 09/25/2024 09/25/2024 11:03 AM CDT Influenza, adult 09/25/2024 09/25/2024 10/02/2024 3:05 AM CDT documented as of this encounter Care Teams Utility Operator Relationship Specialty Start Date End Date Alee Elizondo PA [address] [facility] [address] [place] [address] PCP - General Internal Medicine 07/05/23 Sharan Linton MD Referring Physician Gastroenterology 10/31/18 Martha Starks MD Consulting Physician Cardiology 12/24/20 Shama Hines MD [address] [facility], [facility] [address] [place] [address] Consulting Physician Pain Management 01/19/21 Artis Grewal MD [address] [place] [address] Consulting Physician Rheumatology 01/30/21 Amy Mayes NP [address] [facility] [address] [place] [address] Nurse Practitioner Cardiovascular Disease 04/20/24 Shailesh Dunn MD [address] [facility] [address] [address] Consulting Physician Pulmonary Disease 04/20/24 Sangita Farrar PA [address] [place] [address] Physician Medical Lab Director Rheumatology 05/15/24 documented as of this encounter
--- OUTSIDE RECORDS SUMMARY | 2024-10-02 14:35 | XMS_ITS | Encounter Summary ---
Author Organization [facility] Facility Care Team Providers Care Control Operator Name Role Phone Alee Elizondo Primary Care Provider + [phone] Sharan Linton MD Unavailable [phone] Taisha Gomez MD Unavailable [phone] Parag Soto MD Unavailable [phone] RaziaMartha singh MD Unavailable [phone] Puneet Uribe MD Unavailable +[phone] Shama Hines MD Unavailable Artis Grewal MD Unavailable [phone] Harrison Pena RN Unavailable +[phone] Nafisa Gregg RN Unavailable +[phone] Tho Kelsey MD Primary Care Provider [phone] Alee Elizondo Primary Care Provider + [phone] Amy Mayes NP Unavailable +[phone] Shailesh Dunn MD Unavailable [phone] Sangita Farrar Unavailable [phone] Encounter Details Date Type Department Care Team (Latest Contact Info) Description 03/24/2016 Orders Only [facility] CLINCONV Provider, MD Tania [address] [place] [address] Social History Tobacco Use Types Packs/Day Years Used Date Smoking Tobacco: Never Alcohol Use Standard Drinks/Week Comments No 0 (1 standard drink = 0.6 oz pur e alcohol) Comments Unknown Sex and Gender Information Value Date Recorded Sex Assigned at Not on file Legal Sex Female 8:04 PM SYSTEM SOFTWARE DEVELOPER Gender Identity Female 02/15/2020 6:08 PM [...] COVID: Suspected 08/13/2021 08/14/2021 08/14/2021 3:06 AM SYSTEM SOFTWARE DEVELOPER COVID: Suspected 08/14/2021 08/14/2021 08/15/2021 3:05 AM SYSTEM SOFTWARE DEVELOPER COVID: Suspected 08/14/2021 08/14/2021 08/15/2021 6:25 AM SYSTEM SOFTWARE DEVELOPER COVID: Suspected 06/02/2023 06/02/2023 06/02/2023 7:25 PM SYSTEM SOFTWARE DEVELOPER COVID: Suspected 07/26/2023 07/26/2023 07/26/2023 3:10 PM SYSTEM SOFTWARE DEVELOPER COVID: Suspected 09/25/2024 09/25/2024 09/25/2024 11:03 AM CDT Influenza, adult 09/25/2024 09/25/2024 10/02/2024 3:05 AM CDT documented as of this encounter Care Teams Control Operator Relationship Specialty Start Date End Date Alee Elizondo PA [address] [facility] 500 [place] [address] PCP - General Internal Medicine 02/01/17 06/29/23 Tho Kelsey MD [address] [facility] [address] [facility] [address] [place] [address] PCP - General Family Medicine 06/30/23 07/04/23 Alee Elizondo PA [address] [place] [address] PCP - General Internal Medicine 07/05/23 Sharan Linton MD [address] [place] [address] Referring Physician Gastroenterology 10/31/18 Taisha Gomez MD [address] [facility] [address] [facility] [address] [place] [address] Referring Physician Pulmonary Disease 10/31/18 12/23/20 Parag Soto MD [address] [place] [address] Referring Physician Rheumatology 10/31/18 12/23/20 Martha Starks MD [address] [place] [address] Consulting Physician Cardiology 12/24/20 Puneet Uribe MD [address] [facility] [address] [place] [address] Consulting Physician Rheumatology 12/24/20 01/29/21 Shama Hines MD [address] [facility], [facility] [address] [place] [address] Consulting Physician Pain Management 01/19/21 Artis Grewal MD [address] [place] [address] Consulting Physician Rheumatology 01/30/21 Harrison Pena, JULIUS [address] [place] [address] Armature Connector 05/30/23 09/04/23 Nafisa Gregg, JULIUS [address] [place] [address] [facility] [address] [place] [address] Armature Connector 06/06/23 06/12/23 Amy Mayes NP [address] [facility] [address] [place] [address] Nurse Practitioner Cardiovascular Disease 04/20/24 Shailesh Dunn MD [address] [facility] [address] [place] [address] Consulting Physician Pulmonary Disease 04/20/24 Sangita Farrar PA [address] [place] [address] Physician Costume Designer Rheumatology 05/15/24 documented as of this encounter
--- OUTSIDE RECORDS SUMMARY | 2024-10-02 14:35 | XMS_ITS | Encounter Summary ---
Author Organization [facility] Address [address] [place] [address] Phone Care Team Providers Care Riprap Worker Name Role Phone Sharan Linton MD Unavailable [phone] Martha Starks MD Unavailable [phone] Shama Hines MD Unavailable Artis Grewal MD Unavailable [phone] Alee Elizondo Primary Care Provider [phone] Amy Mayes NP Unavailable [phone] Shailesh Dunn MD Unavailable [phone] Sangita Farrar Unavailable [phone] Encounter Details Date Type Department Care Team (Late st Contact Info) Description 08/24/2024 Results Follow-Up [facility] [address] [place] [address] Sangita Farrar PA [address] [place] [address] Social History Tobacco Use Types Packs/Day Years Used Date Smoking Tobacco: Never Smokeless Tobacco: Never Comments:Never used Alcohol Use Standard Drinks/Week Comments No 0 (1 standard drink = 0.6 oz pur e alcohol) [facility] Utilities Answer Date Recorded In the [...] often do you attend chur ch or restoration services? 1 to 4 times per year 05/30/2024 Do you belong to any clubs o r organizations such as mandaen groups, unions, fraternal or athletic groups, or [...] in a halfway (including now)? No 05/27/2023 PHQ-9 Answer Date [...] any time in the past 12 m [facility], were you homeless or living in a halfway (including now)? No 05/30/2024 Personal Safety Answer Date Recorded Have you ever been in or are you currently in a harmful physical or emotional relationship or is someone making you feel afraid or unsafe? Denies 05/30/2024 Comments No Sex and Gender Information Value Date Recorded Sex Assigned at Not on file Legal Sex Female 8:04 PM TRIBAL COUNCIL MEMBER Gender Identity Female 02/15/2020 6:08 PM CDT [...] documented as of this encounter Care Teams Riprap Worker Relationship Specialty Start Date End Date Alee Elizondo PA [address] [facility] [address] [place] [address] PCP - General Internal Medicine 07/05/23 Sharan Linton MD Referring Physician Gastroenterology 10/31/18 Martha Starks MD Consulting Physician Cardiology 12/24/20 Shama Hines MD [address] [facility] [address] Consulting Physician Pain Management 01/19/21 Artis Grewal MD [address] [place] [address] Consulting Physician Rheumatology 01/30/21 Amy Mayes NP [address] [address] Nurse Practitioner Cardiovascular Disease 04/20/24 Shailesh Dunn MD [address] [facility] [address] [address] Consulting Physician Pulmonary Disease 04/20/24 Sangita Farrar PA [address] [place] [address] Physician Harvest Contractor Rheumatology 05/15/24 documented as of this encounter
--- OUTSIDE RECORDS SUMMARY | 2024-10-02 14:35 | XMS_ITS | Clinical Summary ---
Author Organization [facility] Address [address] [facility] [place] [address] Care Team Providers Care Wholesale And Retail Merchant Name Role Phone Darvin Harden MD Primary Care Provider [phone] Source Comments [facility],non-owned Affiliates and Associated Physician Practices is amultiple site organization consisting of ambulatory clinics and hospital sitesin [place], [place], [place] and [place]. This disclosure is being madepursuant to the Care Everywhere program and may not contain all information available regarding this patient. Last updated 18.[facility] Allergies Active Allergy Reactions Criticality Noted Date [...] fluticasone propionate (Flonase) 50 MCG/ACT nasal spray Shirley 2 (two) sprays into the nose once [...] age to complete this topic Care Teams Wholesale And Retail Merchant Relationship Specialty Start Date End Date Darvin Harden MD [address] [place] [address] PCP - General 07/11/19
--- OUTSIDE RECORDS SUMMARY | 2024-10-02 14:35 | XMS_ITS | Encounter Summary ---
Author Organization [facility] Healthcare Address [address] [place] [address] Care Team Providers Care Aircraft Electrical Systems Specialist Name Role Phone Sharan Linton MD Unavailable [phone] Martha Starks MD Unavailable [phone] Shama Hines MD Unavailable Artis Grewal MD Unavailable [phone] Alee Elizondo Primary Care Provider [phone] Amy Mayes NP Unavailable [phone] Shailesh Dunn MD Unavailable [phone] Sangita Farrar Unavailable [phone] Encounter Details Date Type Department Care Team (Late st Contact Info) Description 09/04/2024 Results Follow-Up [facility] Medical Group Family Medicine [address] [place] [address] Alee Elizondo PA [address] [facility] [address] [place] [address] Social History Tobacco Use Types Packs/Day Years Used Date Smoking Tobacco: Never Smokeless Tobacco: Never Comments:Never used Alcohol Use Standard Drinks/Week Comments No 0 (1 standard drink = 0.6 oz pur e alcohol) [facility] Utilities Answer Date Recorded In the past 12 months has [employer], oil, or water [employer] threatened to shut off services in your [...] often do you attend chur ch or sabianist services? 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 Gender Identity Female 02/15/2020 6:08 PM [...] documented as of this encounter Care Teams Aircraft Electrical Systems Specialist Relationship Specialty [place] [address] [place] [address] PCP - General Internal Medicine 07/05/23 Sharan Linton MD Referring Physician Gastroenterology 10/31/18 Martha Starks MD Consulting Physician Cardiology 12/24/20 Shama Hines MD [address] [facility], [address] [address] Consulting Physician Pain Management 01/19/21 Artis Grewal MD [address] [place] [address] Consulting Physician Rheumatology 01/30/21 Amy Mayes NP [address] [address] Nurse Practitioner Cardiovascular Disease 04/20/24 Shailesh Dunn MD [address] [address] Consulting Physician Pulmonary Disease 04/20/24 Sangita Farrar PA [address] [place] [address] Physician Life Advisor Rheumatology 05/15/24 documented as of this encounter
--- OUTSIDE RECORDS SUMMARY | 2024-10-02 14:35 | XMS_ITS | Encounter Summary ---
Author Organization [facility] Facility Care Team Providers Care Bindery Cutter Operator Name Role Phone Alee Elizondo Primary Care Provider + [phone] Sharan Linton MD Unavailable [phone] Taisha Gomez MD Unavailable [phone] Parag Soto MD Unavailable [phone] RaziaMartha singh MD Unavailable [phone] Puneet Uribe MD Unavailable +[phone] Shama Hines MD Unavailable Artis Grewal MD Unavailable [phone] Harrison Pena RN Unavailable [phone] Nafisa Gregg RN Unavailable [phone] Tho Kelsey MD Primary Care Provider [phone] Alee Elizondo Primary Care Provider + [phone] Amy Mayes NP Unavailable [phone] Shailesh Dunn MD Unavailable [phone] Sangita Farrar Unavailable [phone] Encounter Details Date Type Department Care Team (Latest Contact Info) Description 12/31/2015 Orders Only [facility] CLINCONV Provider, MD Tania [address] [place] [address] Social History Tobacco Use Types Packs/Day Years Used Date Smoking Tobacco: Never Alcohol Use Standard Drinks/Week Comments No 0 (1 standard drink = 0.6 oz pur e alcohol) Comments Unknown Sex and Gender Information Value Date Recorded Sex Assigned at Not on file Legal Sex Female 8:04 PM WEB GRAPHIC DESIGNER Gender Identity Female 02/15/2020 6:08 PM [...] Suspected 08/13/2021 08/14/2021 08/14/2021 3:06 AM WEB GRAPHIC DESIGNER COVID: Suspected 08/14/2021 08/14/2021 08/15/2021 3:05 AM WEB GRAPHIC DESIGNER COVID: Suspected 08/14/2021 08/14/2021 08/15/2021 6:25 AM WEB GRAPHIC DESIGNER COVID: Suspected 06/02/2023 06/02/2023 06/02/2023 7:25 PM WEB GRAPHIC DESIGNER COVID: Suspected 07/26/2023 07/26/2023 07/26/2023 3:10 PM WEB GRAPHIC DESIGNER COVID: Suspected 09/25/2024 09/25/2024 09/25/2024 11:03 AM CDT Influenza, adult 09/25/2024 09/25/2024 10/02/2024 3:05 AM CDT documented as of this encounter Care Teams Bindery Cutter Operator Relationship Specialty Start Date End Date Alee Elizondo PA [address] [place] [address] PCP - General Internal Medicine 8/1/17 12/27/23 Tho Kelsey MD [address] [facility] [address] [facility] [address] [place] [address] PCP - General Family Medicine 06/30/23 07/04/23 Alee Elizondo PA [address] [place] [address] PCP - General Internal Medicine 07/05/23 Sharan Linton MD [address] [place] [address] Referring Physician Gastroenterology 10/31/18 Taisha Gomez MD [address] [place], [place] [address] Referring Physician Pulmonary Disease 10/31/18 12/23/20 Parag Soto MD [address] [place], [place] [address] Referring Physician Rheumatology 10/31/18 12/23/20 Martha Starks MD [address] [place] [address] Consulting Physician Cardiology 12/24/20 Puneet Uribe MD [address] [facility] [address] [place] [address] Consulting Physician Rheumatology 12/24/20 01/29/21 Shama Hines MD [address] [facility], [facility] [address] [place] [address] Consulting Physician Pain Management 01/19/21 Artis Grewal MD [address] [place] [address] Consulting Physician Rheumatology 01/30/21 Harrison Pena, JULIUS [address] [place] [address] Community Outreach Advocate 05/30/23 09/04/23 Nafisa Gregg, JULIUS [address] [place] [address] [address] [place] [address] Community Outreach Advocate 06/06/23 06/12/23 Amy Mayes NP [address] [address] Nurse Practitioner Cardiovascular Disease 04/20/24 Shailesh Dunn MD [address] [facility] [address] [address] Consulting Physician Pulmonary Disease 04/20/24 Sangita Farrar PA [address] [place] [address] Physician Stranding 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 Rheumatology 05/15/24 documented as of this encounter
--- OUTSIDE RECORDS SUMMARY | 2024-10-02 14:35 | XMS_ITS | Encounter Summary ---
Author Organization [facility] Healthcare Address [address] [place] [address] Care Team Providers Care Category Consultant Name Role Phone Sharan Linton MD Unavailable [phone] Martha Starks MD Unavailable [phone] Shama Hines MD Unavailable Artis Grewal MD Unavailable [phone] Alee Elizondo Primary Care Provider [phone] Amy Mayes NP Unavailable [phone] Shailesh Dunn MD Unavailable [phone] Sangita Farrar Unavailable [phone] Reason for Visit * Reason Onset Date Comments Medical Question/Miscellaneous 09/25/2024 Encounter Details Date Type Department Care Team (Late st Contact Info) Description 09/25/2024 Results Follow-Up [facility] Medical Group Family Medicine [address] [place] [address] Alee Elizondo PA [address] [facility] [address] [place] [address] Social History Tobacco Use Types Packs/Day Years Used Date Smoking Tobacco: Never Smokeless Tobacco: Never Comments:Never used Alcohol Use Standard Drinks/Week Comments No 0 (1 standard drink = 0.6 oz pur e alcohol) [facility] Utilities Answer Date Recorded In the [...] often do you attend chur ch or uatsdin services? 1 to 4 times per year 05/30/2024 Do you belong to any clubs o r organizations such as zoroastrianism groups, unions, fraternal or athletic groups, or [...] any time in the past 12 m [facility], were you homeless or living in a intermediate (including now)? No 05/30/2024 Personal Safety Answer Date Recorded Have you ever been in or are you currently in a harmful physical or emotional relationship or is someone making you feel afraid or unsafe? 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 Gender Identity Female 02/15/2020 6:08 PM CDT [...] documented as of this encounter Care Teams Category Consultant Relationship Specialty Start Date End Date Alee Elizondo PA [address] [facility] [address] [place] [address] PCP - General Internal Medicine 07/05/23 Sharan Linton MD Referring Physician Gastroenterology 10/31/18 Martha Starks MD Consulting Physician Cardiology 12/24/20 Shama Hines MD [address] [facility] [address] Consulting Physician Pain Management 01/19/21 Artis Grewal MD [address] [place] [address] Consulting Physician Rheumatology 01/30/21 Amy Mayes NP [address] [facility] [address] [place] [address] [address] [place] [address] Nurse Practitioner Cardiovascular Disease 04/20/24 Shailesh Dunn MD [address] [address] Consulting Physician Pulmonary Disease 04/20/24 Sangita Farrar PA [address] [place] [address] Physician Side Laster Rheumatology 05/15/24 documented as of this encounter
--- OUTSIDE RECORDS SUMMARY | 2024-10-02 14:35 | XMS_ITS | Encounter Summary ---
Author Organization [facility] Facility Care Team Providers Care Hyperion Developer Name Role Phone Alee Elizondo Primary Care Provider + [phone] Sharan Linton MD Unavailable +[phone] Taisha Gomez MD Unavailable +[phone] Parag Soto MD Unavailable +[phone] RaziaMartha singh MD Unavailable +[phone] Puneet Uribe MD Unavailable +[phone] Shama Hines MD Unavailable Artis Grewal MD Unavailable +[phone] Harrison Pena RN Unavailable +[phone] Nafisa Gregg RN Unavailable +[phone] Tho Kelsey MD Primary Care Provider +[phone] Alee Elizondo Primary Care Provider + [phone] Amy Mayes NP Unavailable +[phone] Shailesh Dunn MD Unavailable +[phone] Sangita Farrar Unavailable +[phone] Encounter Details Date Type Department Care Team (Latest Contact Info) Description 11/04/2015 Orders Only [facility] CLINCONV Provider, MD Tania [address] [place] [address] Social History Tobacco Use Types Packs/Day Years Used Date Smoking Tobacco: Never Assessed Comments Unknown Sex and Gender Information Value Date Recorded Sex Assigned at Not on file Legal Sex Female 8:04 PM DIRECTOR OF RECRUITMENT AND ADMISSIONS Gender Identity Female 02/15/2020 6:08 PM CDT [...] Suspected 08/13/2021 08/14/2021 08/14/2021 3:06 AM DIRECTOR OF RECRUITMENT AND ADMISSIONS COVID: Suspected 08/14/2021 08/14/2021 08/15/2021 3:05 AM DIRECTOR OF RECRUITMENT AND ADMISSIONS COVID: Suspected 08/14/2021 08/14/2021 08/15/2021 6:25 AM DIRECTOR OF RECRUITMENT AND ADMISSIONS COVID: Suspected 06/02/2023 06/02/2023 06/02/2023 7:25 PM DIRECTOR OF RECRUITMENT AND ADMISSIONS COVID: Suspected 07/26/2023 07/26/2023 07/26/2023 3:10 PM DIRECTOR OF RECRUITMENT AND ADMISSIONS COVID: Suspected 09/25/2024 09/25/2024 09/25/2024 11:03 AM CDT Influenza, adult 09/25/2024 09/25/2024 10/02/2024 3:05 AM CDT documented as of this encounter Care Teams Hyperion Developer Relationship Specialty Start Date End Date Alee Elizondo PA [address] [facility] [address] [place] [address] PCP - General Internal Medicine 02/01/17 06/29/23 Tho Kelsey MD 4600 [facility] 400 [place] [address] PCP - General Family Medicine 06/30/23 07/04/23 Alee Elizondo PA [address] [place] [address] [place] [address] PCP - General Internal Medicine 07/05/23 Sharan Linton MD [address] [place] [address] [place] [address] Referring Physician Gastroenterology 10/31/18 Taisha Gomez MD [address] [place] [address] [place] [address] Referring Physician Pulmonary Disease 10/31/18 12/23/20 Parag Soto MD [address] [place] [address] [place] [address] Referring Physician Rheumatology 10/31/18 12/23/20 Martha Starks MD [address] [place] [address] [place] [address] Consulting Physician Cardiology 12/24/20 Puneet Uribe MD [address] [facility] [address] [place] [address] Consulting Physician Rheumatology 12/24/20 01/29/21 Shama Hines MD 4700 [facility], [facility] [address] [place] [address] Consulting Physician Pain Management 01/19/21 Artis Grewal MD [address] [place] [address] Consulting Physician Rheumatology 01/30/21 Harrison Pena, JULIUS [address] [place] [address] Edge Banding Machine Offbearer 05/30/23 09/04/23 Nafisa Gregg, JULIUS [address] [place] [address] [facility] [address] [place] [address] Edge Banding Machine Offbearer 06/06/23 06/12/23 Amy Mayes NP [address] [address] Nurse Practitioner Cardiovascular Disease 04/20/24 Shailesh Dunn MD 4600 [facility] [address] [address] Consulting Physician Pulmonary Disease 04/20/24 Sangita Farrar PA [address] [place] [address] Physician Reduction Furnace Operator Helper Rheumatology 05/15/24 documented as of this encounter
--- OUTSIDE RECORDS SUMMARY | 2024-10-02 14:36 | XMS_ITS | Encounter Summary ---
Author Organization [facility] Facility Care Team Providers Care Practice Director Name Role Phone Alee Elizondo Primary Care Provider + [phone] Sharan Linton MD Unavailable +[phone] Taisha Gomez MD Unavailable +[phone] Parag Soto MD Unavailable +[phone] Martha Starks MD Unavailable +[phone] Puneet Uribe MD Unavailable +[phone] Shama Hines MD Unavailable Artis Grewal MD Unavailable [phone] Harrison Pena RN Unavailable +[phone] Nafisa Gregg RN Unavailable +[phone] Tho Kelsey MD Primary Care Provider +[phone] Alee Elizondo Primary Care Provider + [phone] Amy Mayes NP Unavailable +[phone] Shailesh Dunn MD Unavailable +[phone] Sangita Farrar Unavailable +[phone] Encounter Details Date Type Department Care Team (Latest Contact Info) Description 01/08/2017 Orders Only [facility] CLINCONV Provider, MD Tania [address] [place] [address] Social History Tobacco Use Types Packs/Day Years Used Date Smoking Tobacco: Never Alcohol Use Standard Drinks/Week Comments No 0 (1 standard drink = 0.6 oz pur e alcohol) Comments Unknown Sex and Gender Information Value Date Recorded Sex Assigned at Not on file Legal Sex Female 8:04 PM LCAC OPERATOR Gender Identity Female 02/15/2020 6:08 PM [...] COVID: Suspected 08/13/2021 08/14/2021 08/14/2021 3:06 AM LCAC OPERATOR COVID: Suspected 08/14/2021 08/14/2021 08/15/2021 3:05 AM LCAC OPERATOR COVID: Suspected 08/14/2021 08/14/2021 08/15/2021 6:25 AM LCAC OPERATOR COVID: Suspected 06/02/2023 06/02/2023 06/02/2023 7:25 PM LCAC OPERATOR COVID: Suspected 07/26/2023 07/26/2023 07/26/2023 3:10 PM LCAC OPERATOR COVID: Suspected 09/25/2024 09/25/2024 09/25/2024 11:03 AM CDT Influenza, adult 09/25/2024 09/25/2024 10/02/2024 3:05 AM CDT documented as of this encounter Care Teams Practice Director Relationship Specialty Start Date End Date Alee Elizondo PA 1095 [facility] 500 [place] [address] PCP - General Internal Medicine 02/01/17 06/29/23 Tho Kelsey MD [address] [facility] [address] [facility] 400 [place] [address] PCP - General Family Medicine 06/30/23 07/04/23 Alee Elizondo PA [address] [place] [address] [place] [address] PCP - General Internal Medicine 07/05/23 Sharan Linton MD [address] [place] [address] [place] [address] Referring Physician Gastroenterology 10/31/18 Taisha Gomez MD [address] [facility] [address] [place] [address] [place] [address] Referring Physician Pulmonary Disease 10/31/18 12/23/20 Parag Soto MD [address] [place] [address] [place] [address] Referring Physician Rheumatology 10/31/18 12/23/20 Martha Starks MD [address] [place] [address] [place] [address] Consulting Physician Cardiology 12/24/20 Puneet Uribe MD [address] [facility] [address] [place] [address] Consulting Physician Rheumatology 12/24/20 01/29/21 Shama Hines MD [address] [facility], [facility] [address] [place] [address] Consulting Physician Pain Management 01/19/21 Artis Grewal MD [address] [place] [address] Consulting Physician Rheumatology 01/30/21 Harrison Pena, JULIUS [address] [place] [address] E Commerce Manager 05/30/23 09/04/23 Nafisa Gregg, JULIUS [address] [place] [address] [facility] [address] [place] [address] E Commerce Manager 06/06/23 06/12/23 Amy Mayes NP [address] [facility] 102 [place] [address] Nurse Practitioner Cardiovascular Disease 04/20/24 Shailesh Dunn MD 4600 [facility] 200 [place] [address] Consulting Physician Pulmonary Disease 04/20/24 Sangita Farrar PA [address] [place] [address] Physician Community Pharmacist Rheumatology 05/15/24 documented as of this encounter
--- OUTSIDE RECORDS SUMMARY | 2024-10-02 14:36 | XMS_ITS | Encounter Summary ---
Author Organization [facility] Facility Care Team Providers Care Skid Man Name Role Phone Alee Elizondo Primary Care Provider + [phone] Sharan Linton MD Unavailable [phone] Tiasha Gomez MD Unavailable [phone] Parag Soto MD Unavailable +[phone] RaziaMartha singh MD Unavailable [phone] Puneet Uribe MD Unavailable +[phone] Shama Hines MD Unavailable Artis Grewal MD Unavailable [phone] Harrison Pena RN Unavailable +[phone] Nafisa Gregg RN Unavailable +[phone] Tho Kelsey MD Primary Care Provider [phone] Alee Elizondo Primary Care Provider + [phone] Amy Mayes NP Unavailable +[phone] Shailesh Dunn MD Unavailable +[phone] Sangita Farrar Unavailable +[phone] Encounter Details Date Type Department Care Team (Latest Contact Info) Description 10/15/2016 Orders Only [facility] CLINCONV Provider, MD Tania [address] [place] [address] Social History Tobacco Use Types Packs/Day Years Used Date Smoking Tobacco: Never Alcohol Use Standard Drinks/Week Comments No 0 (1 standard drink = 0.6 oz pur e alcohol) Comments Unknown Sex and Gender Information Value Date Recorded Sex Assigned at Not on file Legal Sex Female 8:04 PM EXPEDITER SERVICE ORDER Gender Identity Female 02/15/2020 6:08 PM CDT [...] COVID: Suspected 08/13/2021 08/14/2021 08/14/2021 3:06 AM EXPEDITER SERVICE ORDER COVID: Suspected 08/14/2021 08/14/2021 08/15/2021 3:05 AM EXPEDITER SERVICE ORDER COVID: Suspected 08/14/2021 08/14/2021 08/15/2021 6:25 AM EXPEDITER SERVICE ORDER COVID: Suspected 06/02/2023 06/02/2023 06/02/2023 7:25 PM EXPEDITER SERVICE ORDER COVID: Suspected 07/26/2023 07/26/2023 07/26/2023 3:10 PM EXPEDITER SERVICE ORDER COVID: Suspected 09/25/2024 09/25/2024 09/25/2024 11:03 AM CDT Influenza, adult 09/25/2024 09/25/2024 10/02/2024 3:05 AM CDT documented as of this encounter Care Teams Skid Man Relationship Specialty Start Date End Date Alee Elizondo PA 1095 [facility] 500 [place] [address] PCP - General Internal Medicine 02/01/17 06/29/23 Tho Kelsey MD [address] [facility] [address] [facility] 400 [place] [address] PCP - General Family Medicine 06/30/23 07/04/23 Alee Elizondo PA [address] [place] [address] [place] [address] PCP - General Internal Medicine 07/05/23 Sharan Linton MD [address] [place] [address] [place] [address] Referring Physician Gastroenterology 10/31/18 Taisha Gomez MD [address] [facility] [address] [place] [address] [place] [address] Referring Physician Pulmonary Disease 10/31/18 12/23/20 Parag Soto MD [address] [place] [address] [place] [address] Referring Physician Rheumatology 10/31/18 12/23/20 Martha Starks MD [address] [place] [address] [place] [address] Consulting Physician Cardiology 12/24/20 Puneet Uribe MD [address] [facility] [address] [place] [address] Consulting Physician Rheumatology 12/24/20 01/29/21 Shama Hines MD 4700 [facility] [address] [place] [address] Consulting Physician Pain Management 01/19/21 Artis Grewal MD [address] [place] [address] Consulting Physician Rheumatology 01/30/21 Harrison Pena, JULIUS [address] [place] [address] Surgical Scrub Technologist 05/30/23 09/04/23 Nafisa Gregg, JULIUS [address] [place] [address] [facility] [address] [place] [address] Surgical Scrub Technologist 06/06/23 06/12/23 Amy Mayes NP [address] [facility] 102 [place] [address] Nurse Practitioner Cardiovascular Disease 04/20/24 Shailesh Dunn MD 4600 [facility] 200 [place] [address] Consulting Physician Pulmonary Disease 04/20/24 Sangita Farrar PA [address] [place] [address] Physician Manufacturing Assistant Rheumatology 05/15/24 documented as of this encounter
--- OUTSIDE RECORDS SUMMARY | 2024-10-02 14:36 | XMS_ITS | Encounter Summary ---
Author Organization [facility] Healthcare Address [address] [place] [address] Care Team Providers Care Executive Director Of Marketing Name Role Phone Sharan Linton MD Unavailable [phone] Martha Starks MD Unavailable +[phone] Shama Hines MD Unavailable Artis Grewal MD Unavailable [phone] Alee Elizondo Primary Care Provider [phone] Amy Mayes NP Unavailable +[phone] Shailesh Dunn MD Unavailable +[phone] Sangita Farrar Unavailable +[phone] Encounter Details Date Type Department Care Team (Late st Contact Info) Description 12/08/2023 Orders Only [facility] Health Information Management [address] [place] [address] Scanning, Provider Social History Tobacco Use Types Packs/Day Years Used Date Smoking Tobacco: Never Smokeless Tobacco: Never Comments:Never used Alcohol Use Standard Drinks/Week Comments No 0 (1 standard drink = 0.6 oz pur e alcohol) [facility] Utilities Answer Date Recorded In the past [...] often do you attend chur ch or adventism services? More than 4 times per year 05/27/2023 Do you belong to any clubs o r organizations such as judaism groups, unions, fraternal or athletic groups, or [...] place to sleep or slept in a [place] facility (including now)? No 05/27/2023 PHQ-9 Answer Date [...] on file Legal Sex Female 8:04 PM PHYSICIAN INTERNIST Gender Identity Female 02/15/2020 6:08 PM CDT [...] documented as of this encounter Care Teams Executive Director Of Marketing Relationship Specialty Start Date End Date Alee Elizondo PA [address] [address] PCP - General Internal Medicine 07/05/23 Sharan Linton MD Referring Physician Gastroenterology 10/31/18 Martha Starks MD Consulting Physician Cardiology 12/24/20 Shama Hines MD 4700 [facility], [address] [address] Consulting Physician Pain Management 01/19/21 Artis Grewal MD [address] [place] [address] Consulting Physician Rheumatology 01/30/21 Amy Mayes NP [address] [address] Nurse Practitioner Cardiovascular Disease 04/20/24 Shailesh Dunn MD [address] [address] Consulting Physician Pulmonary Disease 04/20/24 Sangita Farrar PA [address] [place] [address] Physician Advertising Production Manager Rheumatology 05/15/24 documented as of this encounter
--- OUTSIDE RECORDS SUMMARY | 2024-10-02 14:36 | XMS_ITS | Clinical Summary ---
Author Organization [facility] [address] Address [address] [place] [address] Care Team Providers Care Detail Drafter Name Role Phone Sharan Linton MD Unavailable [phone] Martha Starks MD Unavailable [phone] Shama Hines MD Unavailable Artis Grewal MD Unavailable [phone] Alee Elizondo Primary Care Provider [phone] Amy Mayes NP Unavailable [phone] Shailesh Dunn MD Unavailable [phone] Sangita Farrar Unavailable Allergies Active Allergy Reactions [...] Assessment & Plan (05/07/2024 8:57 PM SUPERVISOR COLOR MAKING): I have examined this patient and ordered [...] She has had evaluation by Urology at [facility] and has been told there is probably [...] Assessment & Plan (05/07/2024 8:56 PM SUPERVISOR COLOR MAKING): Discussed the patient's BMI. The BMI is [...] Assessment & Plan (09/06/2023 9:38 AM SUPERVISOR COLOR MAKING): Discussed the patient's BMI. The BMI is above average. BMI management plan is completed. BMI Follow-up includes: nutrition counseling, exercise counseling and education provided. Patient has an obesity-related condition (not limited to: hypertension, obstructive sleep apnea, osteoarthritis, hyperlipidemia, diabetes, etc.). Therefore, morbid obesity may be documented for patients with a BMI between 35.00-39.99. Assessment & Plan (08/07/2023 7:51 PM SUPERVISOR COLOR MAKING): Discussed the patient's BMI. The BMI is above average. BMI management plan is completed. BMI Follow-up includes: nutrition counseling, exercise counseling and education provided. Patient has an obesity-related condition (not limited to: hypertension, obstructive sleep apnea, osteoarthritis, hyperlipidemia, diabetes, etc.). Therefore, morbid obesity may be documented for patients with a BMI between 35.00-39.99. Assessment & Plan (08/03/2023 7:45 AM SUPERVISOR COLOR MAKING): Discussed the patient's BMI. The BMI is above average. BMI management plan is completed. BMI Follow-up includes: nutrition counseling, exercise counseling and education provided. Primary osteoarthritis of right knee 07/08/2023 Assessment & Plan (05/07/2024 8:56 PM SUPERVISOR COLOR MAKING): Patient has arthritis in the right knee. Planning a total knee replacement with Dr. Alexus Motta on May 30 Assessment & Plan (08/03/2023 8:28 AM SUPERVISOR COLOR MAKING): Continue per ortho. She is seeing some improvement but it is difficult to know if the knee is rheumatoid versus osteo versus other etiology. Will await recommendations from JACQUI Raya but definitely encouraged her to become active as soon as possible. Status post total knee replacement using cement, right 05/19/2023 Assessment & Plan (06/02/2023 4:56 PM SUPERVISOR COLOR MAKING): Status post total knee replacement with Dr. Ge Sexton 04 May. She has just been released from rehab following up for her TCM visit. She appears to have an area of cellulitis at the incision site. She is also complaining of increased pain. Will check CBC CMP and inflammatory markers along with an x-ray. She plans to go to [facility] for the workup. Will follow up [...] Assessment & Plan (06/02/2023 8:27 AM SUPERVISOR COLOR MAKING): Discussed the patients BMI: The BMI is [...] Assessment & Plan (05/07/2024 8:55 PM SUPERVISOR COLOR MAKING): Patient is on medication for her rheumatoid arthritis managed by [facility] Assessment & Plan (01/22/2024 8:13 PM CDT): Medications from [facility] contribute to her immunosuppressive state. Assessment & Plan (09/06/2023 9:41 AM SUPERVISOR COLOR MAKING): Medications are managed by [facility] for her rheumatoid arthritis Assessment & Plan (04/06/2023 7:44 PM CDT): Managed by [facility]. Currently on Plaquenil methotrexate Orencia folic [...] She has had evaluation by Urology at [facility] and has been told there is probably [...] Assessment & Plan (09/06/2023 9:41 AM SUPERVISOR COLOR MAKING): Continue per . She did not tolerate [...] Assessment & Plan (07/18/2022 10:20 AM SUPERVISOR COLOR MAKING): CT revealed pelvic lipomatosis that is compressing [...] Assessment & Plan (09/06/2023 9:41 AM SUPERVISOR COLOR MAKING): No change. Dysfunction of both eustachian tubes 02/11/2022 Myalgia, lower leg 01/11/2022 PLMD (periodic limb movement disorder) Assessment & Plan (08/02/2024 11:49 AM SUPERVISOR COLOR MAKING): Asymptomatic Assessment & Plan (06/22/2022 10:31 AM SUPERVISOR COLOR MAKING): Will continue Requip 1 mg nightly Assessment [...] Assessment & Plan (07/13/2021 11:25 AM SUPERVISOR COLOR MAKING): Due to the patient stating that she [...] Assessment & Plan (08/23/2024 10:16 AM SUPERVISOR COLOR MAKING): Hepatitis negative 06/2020 Tspot negative 06/2020 Continue routine lab monitoring Maintain routine eye exams throughout the duration of taking hydroxychloroquine Assessment & Plan (07/30/2024 8:24 AM SUPERVISOR COLOR MAKING): Hepatitis negative 06/2020 Tspot negative 06/2020 Continue [...] Assessment & Plan (09/01/2023 8:34 AM SUPERVISOR COLOR MAKING): Hepatitis negative 06/2020 Tspot negative 06/2020 Continue routine lab monitoring Maintain routine eye exams throughout the duration of taking hydroxychloroquine Assessment & Plan (06/29/2023 2:19 PM SUPERVISOR COLOR MAKING): Hepatitis negative 06/2020 Tspot negative 06/2020 Continue [...] Assessment & Plan (07/14/2022 2:58 PM SUPERVISOR COLOR MAKING): Hepatitis negative 06/2020 Tspot negative 06/2020 Continue routine lab monitoring Maintain routine eye exams throughout the duration of taking hydroxychloroquine Assessment & Plan (06/03/2022 9:58 AM SUPERVISOR COLOR MAKING): Hepatitis negative 06/2020 Tspot negative 06/2020 Continue [...] Assessment & Plan (09/03/2021 8:29 AM SUPERVISOR COLOR MAKING): Hepatitis negative 06/2020 Tspot negative 06/2020 Continue routine lab monitoring Maintain routine eye exams throughout the duration of taking hydroxychloroquine Assessment & Plan (06/03/2021 4:17 PM SUPERVISOR COLOR MAKING): Hepatitis negative 06/2020 Tspot negative 06/2020 Continue [...] Assessment & Plan (09/02/2020 1:16 PM SUPERVISOR COLOR MAKING): Hepatitis negative 06/2020 Tspot negative 06/2020 Continue routine lab monitoring Maintain routine eye exams throughout the duration of taking hydroxychloroquine Assessment & Plan (07/09/2020 12:23 PM SUPERVISOR COLOR MAKING): Hepatitis negative 06/2020 Tspot negative 06/2020 Continue routine lab monitoring Maintain routine eye exams throughout the duration of taking hydroxychloroquine Drug-induced constipation 08/13/2019 Assessment & Plan (05/07/2024 8:54 PM SUPERVISOR COLOR MAKING): Patient with chronic constipation. Has been on [...] Assessment & Plan (08/13/2019 8:57 AM SUPERVISOR COLOR MAKING): On Movantik with Dr. Soto Herpes zoster without complication 12/13/2018 Assessment & Plan (12/23/2018 10:18 PM CDT): Valtex to pharmacy. She has had shingles in the past. Pre-diabetes 10/31/2018 Assessment & Plan (05/07/2024 8:55 PM SUPERVISOR COLOR MAKING): Pre-diabetes/hyperglycemia is a precursor to Dm. Stressed [...] Assessment & Plan (09/06/2023 9:40 AM SUPERVISOR COLOR MAKING): Pre-diabetes/hyperglycemia is a precursor to Dm. Stressed [...] Assessment & Plan (09/11/2021 11:22 PM SUPERVISOR COLOR MAKING): Pre-diabetes/hyperglycemia is a precursor to Dm. Stressed importance of working on diet (decrease your simple sugars and one carbohydrate with each meal) and increase you exercise to achieve weight loss and this will help prevent you from progressing to diabetes. Assessment & Plan (05/29/2021 8:18 PM SUPERVISOR COLOR MAKING): Pre-diabetes/hyperglycemia is a precursor to Dm. Stressed [...] Assessment & Plan (08/31/2020 9:34 AM SUPERVISOR COLOR MAKING): Pre-diabetes is a precursor to Dm. Stressed [...] Assessment & Plan (08/13/2019 9:00 AM SUPERVISOR COLOR MAKING): This is a significant, separately identifiable problem [...] Assessment & Plan (05/07/2024 8:54 PM SUPERVISOR COLOR MAKING): Depression symptoms are stable with Wellbutrin XL 150 Cymbalta 60 b.i.d. Assessment & Plan (04/21/2024 8:50 PM CDT): Depression symptoms are stable with the Wellbutrin XL 150 and Cymbalta 60 b.i.d. Assessment & Plan (01/22/2024 8:11 PM CDT): Depression symptoms are stable with Wellbutrin and Cymbalta Assessment & Plan (09/06/2023 9:40 AM SUPERVISOR COLOR MAKING): Depression is stable with Wellbutrin and Cymbalta Assessment & Plan (08/03/2023 8:31 AM SUPERVISOR COLOR MAKING): Stable with Cymbalta 60 and Wellbutrin XL [...] Assessment & Plan (09/11/2021 11:26 PM SUPERVISOR COLOR MAKING): Continue Wellbutrin and Cymbalta Assessment & Plan (05/29/2021 8:22 PM SUPERVISOR COLOR MAKING): Continue Wellbutrin and Cymbalta Assessment & Plan (05/24/2021 10:39 AM SUPERVISOR COLOR MAKING): Continue Wellbutrin and Cymbalta Assessment & Plan (12/24/2020 9:07 AM CDT): Continue wellbutrin and cymbalta Assessment & Plan (08/31/2020 9:35 AM SUPERVISOR COLOR MAKING): Continue wellbutrin and cymbalta Assessment & Plan (02/18/2020 9:47 PM CDT): Stable with the Cymbalata Assessment & Plan (08/13/2019 8:59 AM SUPERVISOR COLOR MAKING): Stable with Cymbalta and Wellbutrin Assessment & [...] regimen. Med list updated to reflect the [id number] one daily and Prozac 40mg. Mixed hyperlipidemia 03/29/2018 Assessment & Plan (05/07/2024 8:54 PM SUPERVISOR COLOR MAKING): Encouraged patient to follow low fat/low chol [...] Assessment & Plan (09/06/2023 9:42 AM SUPERVISOR COLOR MAKING): Encouraged patient to follow low fat/low chol [...] Assessment & Plan (09/11/2021 11:26 PM SUPERVISOR COLOR MAKING): Encouraged patient to follow low fat/low chol diet like the Mediterranean diet. Increase good fats in the diet. Increase exercise. Monitor labs as needed. Continue statin Assessment & Plan (05/29/2021 8:22 PM SUPERVISOR COLOR MAKING): Encouraged patient to follow fat/low chol diet like the Mediterranean diet. Increase good fats in the diet. Increase exercise. Monitor labs as needed. Continue statin Assessment & Plan (05/24/2021 10:39 AM SUPERVISOR COLOR MAKING): Encouraged patient to follow fat/low chol diet [...] Assessment & Plan (08/31/2020 9:34 AM SUPERVISOR COLOR MAKING): Encouraged patient to follow fat/low chol diet like the Mediterranean diet. Increase good fats in the diet. Increase exercise. Monitor labs as needed. Continue statin Assessment & Plan (02/18/2020 9:46 PM CDT): Encouraged patient to continue low fat/low chol diet. Continue exercise. Increase good fats in the diet. Monitor labs as needed. Assessment & Plan (08/13/2019 8:59 AM SUPERVISOR COLOR MAKING): Encouraged patient to continue low fat/low chol [...] having the hiatal hernia repair with Dr. Fyae. Still has asked effects as needed Assessment [...] Assessment & Plan (09/06/2023 9:40 AM SUPERVISOR COLOR MAKING): Continue PPI Assessment & Plan (04/06/2023 7:36 PM CDT): Continue PPI p.r.n. Assessment & Plan (01/20/2023 8:13 PM CDT): Continue PPI Assessment & Plan (09/12/2022 6:13 PM CDT): Continue PPI p.r.n. Assessment & Plan (06/03/2022 3:40 PM SUPERVISOR COLOR MAKING): Pyrosis poorly controlled on Nexium. Pt has [...] Assessment & Plan (09/11/2021 11:26 PM SUPERVISOR COLOR MAKING): Continue PPI Assessment & Plan (12/24/2020 9:05 AM CDT): Continue PPI Assessment & Plan (02/18/2020 9:45 PM CDT): Continue PPI. Saw Dr. Lintno for increased GERD sxs. If persist, encouraged to followup again with Dr. Linton. Assessment & Plan (08/13/2019 8:58 AM SUPERVISOR COLOR MAKING): Stable with PPI Assessment & Plan (04/29/2019 [...] Assessment & Plan (06/22/2022 10:30 AM SUPERVISOR COLOR MAKING): Patient is not currently using inhalers. She [...] Assessment & Plan (08/02/2024 11:49 AM SUPERVISOR COLOR MAKING): Due to the patient stating the pressure [...] readjusted. She denied need for supplies. DME [facility] patient Assessment & Plan (05/07/2024 8:55 PM SUPERVISOR COLOR MAKING): Continue with CPAP. Assessment & Plan (04/21/2024 8:49 PM CDT): Continue per Dr. Dunn. Has all her needed supplies for CPAP which she is using every night. Continue with Requip 0.5 mg HS for restless leg Assessment & Plan (01/22/2024 8:08 PM CDT): Continue CPAP per Dr. Dothager Assessment & Plan (09/06/2023 9:40 AM SUPERVISOR COLOR MAKING): Continue CPAP Assessment & Plan (06/21/2023 10:14 AM SUPERVISOR COLOR MAKING): Patient continue to wear her CPAP at [...] Assessment & Plan (06/22/2022 10:31 AM SUPERVISOR COLOR MAKING): Will continue CPAP therapy at an auto titrating range of 7-20 cm water pressure. Denied need for supplies. DME [facility] patient Assessment & Plan (05/02/2022 9:15 [...] pressure. Patient denied need for supplies. DME [facility]. Patient is benefitting CPAP Assessment & Plan (09/11/2021 11:22 PM SUPERVISOR COLOR MAKING): Continue CPAP. Patient has all needed supplies. Assessment & Plan (07/13/2021 11:27 AM SUPERVISOR COLOR MAKING): Due to the patient stating she does not have enough pressure in her machine, I have increased the pressure to 13 cm water pressure. The patient denied need for for supplies. DME company [facility]. Have also ordered a new smart card set at 13 cm water pressure. Benefitting from CPAP therapy Assessment & Plan (05/29/2021 8:14 PM SUPERVISOR COLOR MAKING): Continue CPAP. Assessment & Plan (02/17/2021 11:09 AM CDT): The patient continues to be compliant with her CPAP at 8 cm water pressure. She has developed worsening daytime hypersomnia. She also has morning headaches and dry mouth. I have recommended proceeding with a CPAP titration study starting at 8 cm water pressure. Her DME is [facility]. Assessment & Plan (12/24/2020 9:04 AM CDT): Continue CPAP. Would like to see Pulm/sleep at [facility] as difficulty getting in consistently at [place] and most of her care is now [facility] Assessment & Plan (02/18/2020 9:44 PM CDT): Continue CPAP Assessment & Plan (08/13/2019 8:46 AM SUPERVISOR COLOR MAKING): Using the CPAP. Has equipment as needed. [...] Assessment & Plan (08/23/2024 10:16 AM SUPERVISOR COLOR MAKING): 02/2021 XR L knee with mild to moderate OA, now s/p B TKA. Following with ortho as planned. Assessment & Plan (07/30/2024 11:23 AM SUPERVISOR COLOR MAKING): 02/2021 XR L knee with mild to [...] Assessment & Plan (09/01/2023 3:42 PM SUPERVISOR COLOR MAKING): 02/2021 XR L knee with mild to moderate OA, R knee negative. Had injections with ortho without benefit, now s/p L TKA. Assessment & Plan (06/30/2023 12:46 PM SUPERVISOR COLOR MAKING): 02/2021 XR L knee with mild to [...] Assessment & Plan (07/15/2022 1:41 PM SUPERVISOR COLOR MAKING): 02/2021 XR L knee with mild to moderate OA, R knee negative. Had injections with ortho with benefit. Unable to afford PT. Can continue Tylenol Arthritis, not to exceed 4 g/d. Assessment & Plan (06/03/2022 9:58 AM SUPERVISOR COLOR MAKING): 02/2021 XR L knee with mild to [...] Assessment & Plan (09/03/2021 11:27 AM SUPERVISOR COLOR MAKING): XR L knee with mild to moderate [...] Assessment & Plan (06/04/2021 10:27 AM SUPERVISOR COLOR MAKING): XR L knee with mild to moderate [...] Assessment & Plan (09/03/2020 12:23 PM SUPERVISOR COLOR MAKING): 10/27/2017 XR L knee: mild tricompartmental OA. Will continue meloxicam as above. Assessment & Plan (07/09/2020 12:24 PM SUPERVISOR COLOR MAKING): 10/27/2017 XR L knee: mild tricompartmental OA. [...] Assessment & Plan (08/23/2024 12:54 PM SUPERVISOR COLOR MAKING): Moderate cdai with report of increasing pain, [...] Assessment & Plan (07/30/2024 11:22 AM SUPERVISOR COLOR MAKING): Moderate cdai with report of increased morning [...] phone visit with labs near her home ([facility] in [place]), but the following month will need to plan for an in person visit. She expressed understanding and agreement with this plan. Continue methotrexate 20 mg weekly, folic acid 2 mg daily, and hydroxychloroquine 200 mg BID. Labs today as below. Assessment & Plan (05/07/2024 8:55 PM SUPERVISOR COLOR MAKING): Managed by [facility]. Currently on Plaquenil and methotrexate and Orencia folic acid Mobic and gabapentin. 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 Assessment & Plan (04/21/2024 8:49 PM CDT): Continue per [facility]. They currently manage [...] Plan (01/22/2024 8:17 PM CDT): Continue per [facility] as they manage her condition. Assessment & Plan (11/24/2023 9:58 AM CDT): Low cdai without inflammatory sounding pain. Will continue methotrexate 20 mg weekly, folic acid 2 mg daily, hydroxychloroquine 200 mg BID, and Orencia and monitor. Labs today as below. Follow up in 3 months or sooner as needed. Assessment & Plan (09/06/2023 9:42 AM SUPERVISOR COLOR MAKING): Rheumatoid arthritis is managed by [facility]. Currently on Plaquenil methotrexate Orencia and folic acid Assessment & Plan (09/01/2023 3:39 PM SUPERVISOR COLOR MAKING): Overall stable without notable synovitis and no inflammatory sounding pain. Will continue methotrexate 20 mg weekly, folic acid 2 mg daily, hydroxychloroquine 200 mg BID, and Orencia and monitor. Labs today as below. Follow up in 3 months or sooner as needed. Assessment & Plan (08/03/2023 8:28 AM SUPERVISOR COLOR MAKING): Continue with rheumatology. Assessment & Plan (06/30/2023 12:43 PM SUPERVISOR COLOR MAKING): Overall stable without notable synovitis and no inflammatory sounding pain. Will continue methotrexate 20 mg weekly, folic acid 2 mg daily, hydroxychloroquine 200 mg BID, and Orencia and monitor. Labs today as below. Assessment & Plan (06/02/2023 4:49 PM SUPERVISOR COLOR MAKING): Continue per Rheumatology Assessment & Plan (04/06/2023 7:35 PM CDT): Continue per Rheumatology. She has been in discussion with them on what medications to stop prior to her knee surgery. She states she was told to take all of her medicines accept the Orencia. Assessment & Plan (01/20/2023 8:12 PM CDT): Continue per Rheumatology [facility] Assessment & Plan (01/13/2023 3:42 [...] Plan (09/12/2022 6:06 PM CDT): Continue with [facility] Assessment & Plan (07/15/2022 1:41 PM SUPERVISOR COLOR MAKING): Low cdai. Significantly improved after IM triamcinolone [...] Assessment & Plan (06/03/2022 3:37 PM SUPERVISOR COLOR MAKING): High cdai. Previously felt well controlled with current regimen. Due to burden of disease will give patient a triamcinolone injection. Patient made aware of SE of steroids including but not limited to HTN, increased blood glucose, cataracts, glaucoma, AVN, and osteoporosis with senior care use. Should she flare again shortly after [...] (01/23/2022 4:57 PM CDT): Continue management per [facility] Assessment & Plan (12/07/2021 9:02 AM CDT): Low cdai. Denies inflammatory sounding joint pain. Continue methotrexate 25 mg weekly, folic acid to 2 mg daily, Rinvoq 15 mg daily, hydroxychloroquine 200 mg BID, and cyclobenzaprine 5 mg qhs and monitor. Labs today as below. Plan for follow up in 3 months or sooner as needed. Assessment & Plan (09/11/2021 11:14 PM SUPERVISOR COLOR MAKING): Continue per [facility] Assessment & Plan (09/03/2021 11:25 AM SUPERVISOR COLOR MAKING): cdai = 12. Pt suspects increased joint [...] Assessment & Plan (06/04/2021 10:25 AM SUPERVISOR COLOR MAKING): Low cdai. Denies inflammatory sounding pain at present. Will plan to continue methotrexate 25 mg weekly, folic acid to 2 mg daily, Rinvoq 15 mg daily, hydroxychloroquine 200 mg BID, and cyclobenzaprine 5 mg qhs and monitor. Labs today as below. Plan for follow up in 3 months or sooner as needed. Assessment & Plan (05/31/2021 9:15 PM SUPERVISOR COLOR MAKING): Continue per Rheumatology Assessment & Plan (05/29/2021 8:13 PM SUPERVISOR COLOR MAKING): Continue per Rheumatology. Currently on Plaquenil methotrexate and folic acid. Assessment & Plan (05/24/2021 10:38 AM SUPERVISOR COLOR MAKING): Continue per Rheumatology Assessment & Plan (03/05/2021 [...] Assessment & Plan (09/03/2020 12:22 PM SUPERVISOR COLOR MAKING): Low cdai. Continues to feel improved with [...] Assessment & Plan (08/31/2020 9:34 AM SUPERVISOR COLOR MAKING): Continue per [facility] Assessment & Plan (07/09/2020 12:22 PM SUPERVISOR COLOR MAKING): 64yoF with a h/o seropositive RA diagnosed [...] Assessment & Plan (06/04/2020 11:14 AM SUPERVISOR COLOR MAKING): 64yoF with a h/o seropositive RA diagnosed [...] Assessment & Plan (05/14/2020 9:33 PM SUPERVISOR COLOR MAKING): Refer to new Nanotechnologist as Dr. Soto has . Assessment & Plan (02/18/2020 9:46 PM CDT): Continue per Rheum Assessment & Plan (08/13/2019 8:59 AM SUPERVISOR COLOR MAKING): Continue per Dr. Soto Assessment & Plan [...] responding to Reclast. Forteo was tried by [facility] and she could [...] of her osteoporosis, recommended evaluation by the [facility], unfortunately their first available appt was in November 2024. Recommended today that she check with [facility] Osteoporosis center (at [facility]) to see how far out they are scheduling new patients, though she does not like this option due to distance from her house. Assessment & Plan (09/06/2023 9:40 AM SUPERVISOR COLOR MAKING): Managed by [facility]. Per patient they are making a referral to bone metabolism at [facility] she has not seen significant improvement with the Forteo or the Reclast. Assessment & Plan (09/01/2023 3:43 PM SUPERVISOR COLOR MAKING): DEXA: Lspine BMD 0.809 Tscore -2.2, L [...] of her osteoporosis, recommend evaluation by the [facility], provided contact info for Dr. Castillo. Pt in agreement with plan. Assessment & Plan (06/30/2023 12:49 PM SUPERVISOR COLOR MAKING): DEXA: Lspine BMD 0.809 Tscore -2.2, L [...] PM CDT): Continue to monitor. Managed by [facility]. Patient is on Reclast calcium vitamin-D [...] Assessment & Plan (07/15/2022 1:42 PM SUPERVISOR COLOR MAKING): 01/27/2021 DEXA: Lspine -1.8, L femoral neck -1.9, L total hip -1.2, R femoral neck -2.3, R total hip -1.0, FRAX major 32% and hip 7%. Received Reclast 07/2021. Continue yearly Reclast, scheduled for 07/22 Assessment & Plan (06/03/2022 3:38 PM SUPERVISOR COLOR MAKING): 01/27/2021 DEXA: Lspine -1.8, L femoral neck [...] Plan (01/23/2022 5:02 PM CDT): Managed by [facility] currently on Reclast calcium and vitamin-D Assessment & Plan (12/07/2021 9:04 AM CDT): 01/27/2021 DEXA: Lspine -1.8, L femoral neck -1.9, L total hip -1.2, R femoral neck -2.3, R total hip -1.0, FRAX major 32% and hip 7%. Received Reclast 07/2021. Continue yearly Reclast. Assessment & Plan (09/03/2021 11:26 AM SUPERVISOR COLOR MAKING): 01/27/2021 DEXA: Lspine -1.8, L femoral neck -1.9, L total hip -1.2, R femoral neck -2.3, R total hip -1.0, FRAX major 32% and hip 7%. Received Reclast 07/2021. Continue yearly reclast and daily vitamin D-calcium supplement. Assessment & Plan (06/04/2021 10:27 AM SUPERVISOR COLOR MAKING): 01/27/2021 DEXA: Lspine -1.8, L femoral neck [...] order provided today, she will schedule at [facility] Assessment & Plan (12/24/2020 9:06 AM CDT): Continue Reclast thru Rheum Continue calcium, vitD and exercise Assessment & Plan (12/03/2020 10:45 AM CDT): Vitamin D level was 68. Received Reclast 07/09/2020. Last DEXA per available records was 01/31/2019, due this summer - order provided today, she will schedule at [facility] Assessment & Plan (09/03/2020 12:23 PM SUPERVISOR COLOR MAKING): Vitamin D level was 68. Received Reclast 07/09/2020. Last DEXA per available records was 01/31/2019, due this summer. Assessment & Plan (07/09/2020 12:23 PM SUPERVISOR COLOR MAKING): Overdue for Reclast, last infusion was 03/28/2019, will receive infusion today. Vitamin D level was 68 Last DEXA per available records was 01/31/2019 Assessment & Plan (06/04/2020 11:15 AM SUPERVISOR COLOR MAKING): Overdue for Reclast, last infusion was 03/28/2019, will check benefits. Recheck vitamin D level now. Last DEXA per available records was 01/31/2019 Assessment & Plan (02/18/2020 9:46 PM CDT): Calcium, vit D and exercise. Continue to monitor DXA Assessment & Plan (08/13/2019 8:58 AM SUPERVISOR COLOR MAKING): Continue with Calcium, Vit D and Exercise. 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 Daniels Stressed importance of very close follow-up BMI 37.0-37.9, adult 09/06/2023 024 Assessment & Plan (10/13/2023 7:38 AM CDT): Discussed the patient's BMI. The BMI is above average. BMI management plan is completed. BMI Follow-up includes: nutrition counseling, exercise counseling and education provided. Assessment & Plan (09/06/2023 9:42 AM SUPERVISOR COLOR MAKING): Discussed the patient's BMI. The BMI is above average. BMI management plan is completed. BMI Follow-up includes: nutrition counseling, exercise counseling and education provided. Hyperglycemia 09/06/2023 09/06/2023 Positive depression screening 09/06/2023 09/06/2023 Annual physical exam 09/06/2023 Assessment & Plan (09/06/2023 9:43 AM SUPERVISOR COLOR MAKING): Encouraged healthy lifestyle, good nutrition and exercise. Encouraged Calcium and Vitamin D and weight bearing exercise for bone health. Reviewed immunizations Reviewed age appropirate screenings. Right knee pain 08/09/2023 09/06/2023 Sinus congestion 08/07/2023 09/06/2023 Assessment & Plan (08/07/2023 7:54 PM SUPERVISOR COLOR MAKING): Persistent sinusitis symptoms along with cough. Will start doxy b.i.d.. Start antihistamine (Claritin OR Zyrtec), Mucinex 12hour and Steroid nasal spray (Flonase). Push fluids. Rest. Supportive care. If sxs worsen or don\'t improve, pt is to followup in the office. Acute cough 08/07/2023 01/22/2024 Assessment & Plan (08/07/2023 7:55 PM SUPERVISOR COLOR MAKING): Persistent sinusitis symptoms along with cough. Will start doxy b.i.d.. Start antihistamine (Claritin OR Zyrtec), Mucinex 12hour and Steroid nasal spray (Flonase). Push fluids. Rest. Supportive care. If sxs worsen or don\'t improve, pt is to followup in the office. BMI 35.0-35.9,adult 08/03/2023 09/06/19 Assessment & Plan (08/07/2023 7:51 PM SUPERVISOR COLOR MAKING): Discussed the patient's BMI. The BMI is above average. BMI management plan is completed. BMI Follow-up includes: nutrition counseling, exercise counseling and education provided. Assessment & Plan (08/03/2023 8:29 AM SUPERVISOR COLOR MAKING): Discussed the patient's BMI. The BMI is [...] Assessment & Plan (06/02/2023 4:57 PM SUPERVISOR COLOR MAKING): Later in the day received critical lab call for a CO2 value at 42. My staff contacted the patient and she was instructed to go to the ER for further evaluation to determine underlying cause. She states throughout the day she has noticed a little bit more shortness of breath. She plans to have her brother drive her to [place]. Charge nurse was notified of the arrival [...] surgery. Will defer cardiac clearance to her ladle watcher. Her chronic medical conditions are stable. [facility] as instructed her to hold the [...] Dr. Ge Sexton on May 04 at [facility]. Need for vaccination for Strep pneumoniae [...] symptoms worsen or do not respond to [id number] allergy medicines within the next week she may call and will consider antibiotic. Left knee pain 09/13/2022 09/06/2023 BMI 39.0-39.9,adult 08/23/2022 11/09/19 Assessment & Plan (10/25/2022 3:32 PM CDT): Discussed the patient's BMI. The BMI is above average. BMI management plan is completed. BMI Follow-up includes: nutrition counseling, exercise counseling and education provided. Assessment & Plan (08/23/2022 2:19 PM SUPERVISOR COLOR MAKING): Discussed the patient's BMI. The BMI is [...] Assessment & Plan (07/18/2022 10:20 AM SUPERVISOR COLOR MAKING): CT revealed pelvic lipomatosis that is compressing [...] Assessment & Plan (07/18/2022 10:21 AM SUPERVISOR COLOR MAKING): CT revealed pelvic lipomatosis that is compressing [...] Assessment & Plan (07/08/2022 12:33 PM SUPERVISOR COLOR MAKING): Patient has had dysuria. She was started [...] STAT abd/pelvis with and without contrast at [place]. Check labs STAT. Acute right flank pain 07/08/202204/06 Assessment & Plan (07/18/2022 10:21 AM SUPERVISOR COLOR MAKING): CT revealed pelvic lipomatosis that is compressing [...] Assessment & Plan (07/08/2022 5:58 PM SUPERVISOR COLOR MAKING): Images from the original note were not [...] STAT abd/pelvis with and without contrast at [place]. Check labs STAT. STAT CT Abd/pelvis without [...] Assessment & Plan (07/08/2022 12:33 PM SUPERVISOR COLOR MAKING): Patient has had dysuria. She was started [...] Assessment & Plan (07/06/2022 8:50 AM SUPERVISOR COLOR MAKING): Pt presents with dysuria. Urine dip completed. [...] Assessment & Plan (07/18/2022 10:23 AM SUPERVISOR COLOR MAKING): Discussed the patient's BMI. The BMI is above average. BMI management plan is completed. BMI Follow-up includes: nutrition counseling, exercise counseling and education provided. Assessment & Plan (07/08/2022 12:30 PM SUPERVISOR COLOR MAKING): Discussed the patient's BMI. The BMI is [...] She has received multiple injections from her auto crane driver regarding her knee but yesterday when she [...] Assessment & Plan (09/11/2021 11:28 PM SUPERVISOR COLOR MAKING): Patient has never had a full skin exam. She has quite a few lesions scattered and would benefit from a full exam. Will make referral Annual physical exam 09/11/2021 022 Assessment & Plan (09/11/2021 11:28 PM SUPERVISOR COLOR MAKING): Encouraged healthy lifestyle, good nutrition and exercise. Encouraged Calcium and Vitamin D and weight bearing exercise for bone health. Reviewed immunizations Reviewed age appropirate screenings. Cough 08/13/2021 01/23/2022 Assessment & Plan (08/13/2021 3:43 PM SUPERVISOR COLOR MAKING): Patient to presume positive COVID/FLU until results are available and plan to self isolate for up to 10 days from the onset of sxs. Check COVID/FLU test thru [facility] collection site in [place]. Let pt know the newest CDC recommendations [...] Assessment & Plan (07/13/2021 11:28 AM SUPERVISOR COLOR MAKING): I have ordered the patient Claritin 10 [...] Assessment & Plan (09/11/2021 11:27 PM SUPERVISOR COLOR MAKING): Obesity is unchanged. Discussed the patient's BMI. The BMI is above average. BMI management plan is completed. BMI Follow-up includes: nutrition counseling, exercise counseling and education provided. Assessment & Plan (05/29/2021 8:24 PM SUPERVISOR COLOR MAKING): Obesity is unchanged. Discussed the patient's BMI. The BMI is above average. BMI management plan is completed. BMI Follow-up includes: nutrition counseling, exercise counseling and education provided. Assessment & Plan (05/12/2021 1:26 PM SUPERVISOR COLOR MAKING): Obesity is unchanged. Discussed the patient's BMI. The BMI is above average. BMI management plan is completed. BMI Follow-up includes: nutrition counseling, exercise counseling and education provided. BMI 37.0-37.9, adult 05/12/2021 022 Assessment & Plan (09/11/2021 11:27 PM SUPERVISOR COLOR MAKING): Obesity is unchanged. Discussed the patient's BMI. The BMI is above average. BMI management plan is completed. BMI Follow-up includes: nutrition counseling, exercise counseling and education provided. Assessment & Plan (05/29/2021 8:24 PM SUPERVISOR COLOR MAKING): Obesity is unchanged. Discussed the patient's BMI. The BMI is above average. BMI management plan is completed. BMI Follow-up includes: nutrition counseling, exercise counseling and education provided. Assessment & Plan (05/12/2021 1:26 PM SUPERVISOR COLOR MAKING): Obesity is unchanged. Discussed the patient's BMI. The BMI is above average. BMI management plan is completed. BMI Follow-up includes: nutrition counseling, exercise counseling and education provided. Tinea corporis 04/14/2021 01/23/2022 Assessment & Plan (05/31/2021 9:15 PM SUPERVISOR COLOR MAKING): Improving with Lotrisone. Keep the area clean and dry Assessment & Plan (05/29/2021 8:24 PM SUPERVISOR COLOR MAKING): Lotrisone to pharmacy. Encouraged her to keep the area clean and dry use her dryer to dry the skin before applying the cream. She is to call if symptoms worsen or do not resolve. Need for immunization against influenza 04/14/2021 05/31/2021 Assessment & Plan (05/29/2021 8:24 PM SUPERVISOR COLOR MAKING): Fluid updated in the office Medicare annual wellness visit, subsequent 04/13/2021 05/31/2021 Assessment & Plan (05/29/2021 8:23 PM SUPERVISOR COLOR MAKING): Encouraged healthy lifestyle, good nutrition and exercise. [...] Assessment & Plan (08/31/2020 9:31 AM SUPERVISOR COLOR MAKING): Error. This should be right calf but PT order sent and corrected so unable to remove. Fatigue 08/31/2020 09/06/2023 Assessment & Plan (04/06/2023 7:43 PM CDT): Probably multifactorial. Check labs and followup to re-evaluate Assessment & Plan (05/02/2022 9:16 PM CDT): Probably multifactorial. Check labs and followup to re-evaluate Assessment & Plan (08/31/2020 9:34 AM SUPERVISOR COLOR MAKING): Probably multifactorial. Check labs and followup to re-evaluate Pain in both lower extremities 08/31/2020 09/06/2023 Assessment & Plan (09/01/2023 3:41 PM SUPERVISOR COLOR MAKING): Cramping lower leg pain has resolved with [...] 08/31/2020 Assessment & Plan (08/31/2020 9:33 AM SUPERVISOR COLOR MAKING): Obesity is unchanged. Discussed the patient's BMI. The BMI is above average. BMI management plan is completed. BMI Follow-up includes: nutrition counseling, exercise counseling and education provided. Pain of right calf 08/26/2020 Assessment & Plan (08/31/2020 9:31 AM SUPERVISOR COLOR MAKING): This is a significant, separately identifiable problem that was evaluated and managed on the same day as the wellness exam Unable to rule out DVT with her calf pain/sxs. Check STAT Venous doppler. Recvd Results and discussed with patient via phone. Negative for DVT. Recommend PT. Prefers [place] Annual physical exam 08/24/2020 Assessment & Plan (08/31/2020 9:34 AM SUPERVISOR COLOR MAKING): Encouraged healthy lifestyle, good nutrition and exercise. Encouraged Calcium and Vitamin D and weight bearing exercise for bone health. Reviewed immunizations Reviewed age appropirate screenings. Dizziness 05/07/2020 09/06/2023 Assessment & Plan (05/14/2020 9:35 PM SUPERVISOR COLOR MAKING): Suspect the dizziness is inner ear related. [...] Assessment & Plan (05/07/2020 1:49 PM SUPERVISOR COLOR MAKING): Declines to report to er now 'I [...] Assessment & Plan (05/07/2020 1:49 PM SUPERVISOR COLOR MAKING): Declines to report to er now 'I [...] Assessment & Plan (05/07/2020 1:49 PM SUPERVISOR COLOR MAKING): Declines to report to er now 'I [...] Assessment & Plan (05/31/2021 9:15 PM SUPERVISOR COLOR MAKING): Mammogram order provided Assessment & Plan (02/18/2020 9:47 PM CDT): Mammogram order provided today Medicare annual wellness visit, subsequent 02/15/2020 02/15/2020 Precordial pain 09/04/2019 09/06/2023 Assessment & Plan (08/07/2023 7:50 PM SUPERVISOR COLOR MAKING): Workup in the hospital. Cardiology states her [...] Assessment & Plan (07/13/2021 11:26 AM SUPERVISOR COLOR MAKING): The patient will continue with Dulera 2 [...] Assessment & Plan (08/13/2019 8:59 AM SUPERVISOR COLOR MAKING): Encouraged healthy lifestyle, good nutrition and exercise. Encouraged Calcium and Vitamin D and weight bearing exercise for bone health. Reviewed immunizations Reviewed age appropirate screenings. Obesity, morbid, BMI 40.0-49.9 08/13/2019 09/23/2020 Assessment & Plan (08/26/2020 7:10 AM SUPERVISOR COLOR MAKING): Obesity is unchanged. Discussed the patient's BMI. The BMI is above average. BMI management plan is completed. BMI Follow-up includes: nutrition counseling, exercise counseling and education provided. Assessment & Plan (05/14/2020 9:33 PM SUPERVISOR COLOR MAKING): Obesity is unchanged. Discussed the patient's BMI. [...] Assessment & Plan (08/13/2019 8:58 AM SUPERVISOR COLOR MAKING): Obesity is unchanged. Discussed the patient's BMI. [...] Assessment & Plan (08/13/2019 9:01 AM SUPERVISOR COLOR MAKING): This is a significant, separately identifiable problem [...] Assessment & Plan (09/06/2023 9:42 AM SUPERVISOR COLOR MAKING): Probably multifactorial. Check labs and followup to re-evaluate Assessment & Plan (09/03/2021 11:28 AM SUPERVISOR COLOR MAKING): She notes increased fatigue and lack of [...] Assessment & Plan (08/13/2019 9:08 AM SUPERVISOR COLOR MAKING): Probably multifactorial. Check labs and followup to re-evaluate Check labs prior to next visit BMI 40.0-44.9, adult 08/02/2019 020 Assessment & Plan (08/13/2019 8:57 AM SUPERVISOR COLOR MAKING): Obesity is unchanged. Discussed the patient's BMI. The BMI is above average. BMI management plan is completed. BMI Follow-up includes: nutrition counseling, exercise counseling and education provided. Assessment & Plan (08/02/2019 7:21 AM SUPERVISOR COLOR MAKING): Obesity is unchanged. Discussed the patient's BMI. The BMI is above average. BMI management plan is completed. BMI Follow-up includes: nutrition counseling, exercise counseling and education provided. Morbid obesity 08/02/2019 08/13/2019 Assessment & Plan (08/02/2019 7:20 AM SUPERVISOR COLOR MAKING): Obesity is unchanged. Discussed the patient's BMI. The BMI is above average. BMI management plan is completed. BMI Follow-up includes: nutrition counseling, exercise counseling and education provided. Acute non-recurrent maxillary sinusitis 08/02/2019 08/13/2019 Assessment & Plan (08/02/2019 7:47 AM SUPERVISOR COLOR MAKING): Start antibiotic, antihistamine, Mucinex and Steroid nasal [...] foot. She is being sent directly to [facility] and they were working her in [...] Assessment & Plan (05/14/2020 9:33 PM SUPERVISOR COLOR MAKING): Completed Doxy and steroid. No s/s infection. [...] Assessment & Plan (08/13/2019 8:59 AM SUPERVISOR COLOR MAKING): Continue with NSAIDs prn Atheroscler of [place] artery of both legs with intermit claudication 10/31/2018 12/20/2022 Assessment & Plan (09/11/2021 11:23 PM SUPERVISOR COLOR MAKING): Continue per vascular. She is on aspirin and statin Assessment & Plan (12/24/2020 9:03 AM CDT): Sxs stable. On ASA, statin and encouraged daily exercise. Assessment & Plan (02/18/2020 9:43 PM CDT): Continue per cardio. On ASA and statin Assessment & Plan (08/13/2019 8:45 AM SUPERVISOR COLOR MAKING): Continues with Dr. Alonso salmeron Assessment & Plan (11/01/2018 11:00 PM CDT): Pt sxs well controlled. On ASA Coronary artery disease of n ative artery of [place] heart with stable angina pectoris 10/31/2018 12/30/2020 Assessment & Plan (08/13/2019 8:36 AM SUPERVISOR COLOR MAKING): On ASA and Nitrate. Continue per cardio [...] Assessment & Plan (08/13/2019 8:46 AM SUPERVISOR COLOR MAKING): Continue current regimen Assessment & Plan (11/01/2018 [...] Assessment & Plan (09/11/2021 11:26 PM SUPERVISOR COLOR MAKING): Bp is stable/in acceptable range for any co-morbidities. Encouraged to limit sodium intake and exercise for weight control. Currently stable without medication Assessment & Plan (05/29/2021 8:19 PM SUPERVISOR COLOR MAKING): Bp is stable/in acceptable range for any co-morbidities. Encouraged to limit sodium intake and exercise for weight control. Continue Lasix is helping with the swelling and addition. Blood pressure stable Assessment & Plan (05/24/2021 10:38 AM SUPERVISOR COLOR MAKING): Continue Lasix potassium Assessment & Plan (12/24/2020 9:05 AM CDT): Bp is stable/in acceptable range for any co-morbidities. Encouraged to limit sodium intake and exercise for weight control. Assessment & Plan (08/31/2020 9:32 AM SUPERVISOR COLOR MAKING): Bp is stable/in acceptable range for any co-morbidities. Encouraged to limit sodium intake and exercise for weight control. Stable with laxis currently Assessment & Plan (02/18/2020 9:44 PM CDT): Bp is stable/in acceptable range for any co-morbidities. Encouraged to limit sodium intake and exercise for weight control. Assessment & Plan (08/13/2019 8:57 AM SUPERVISOR COLOR MAKING): Bp is stable/in acceptable range for any [...] difficulty pulling them. Recommend finding some on [employer] that fit her calf that she can zip on and off. Showed them to her on [employer] and where to order them. She states she will try to get them. Assessment & Plan (05/31/2021 9:16 PM SUPERVISOR COLOR MAKING): Improving slowly. May have been due to the Relafen. She is on 60 of Lasix with potassium 10 mEq daily. Continue with current plan. Keep legs elevated. Utilize compressi to improve cleared. on hose. Call if symptoms worsen or do not continue to improve. Assessment & Plan (05/29/2021 8:23 PM SUPERVISOR COLOR MAKING): Persistent lower extremity edema that has improved [...] Assessment & Plan (05/24/2021 10:39 AM SUPERVISOR COLOR MAKING): Patient that her swelling was improving since discharge for over the last day or so it seems to be increasing. Will increase the Lasix to 40mg Start K 10meq daily Recheck labs in 5 days Assessment & Plan (08/31/2020 9:33 AM SUPERVISOR COLOR MAKING): Continue lasix Palpitations 12/08/2015 12/30/2020 Overview (10/09/2016): Palpitations Other abnormal glucose 11/11/201508/31 Asthma 10/14/2015 12/24/2020 Assessment & Plan (08/13/2019 8:49 AM SUPERVISOR COLOR MAKING): Continue with current regimen and with Pulmonary Assessment & Plan (11/01/2018 10:53 PM CDT): Currently Stable with regimen. Monitor closely with current allergy season. Followup Dr. Gomez as directed. Menopause 10/14/2015 12/30/2020 Cervical pain (neck) 10/14/2015 023 Encounters Date Type Department Care Team Description 09/26/2024 Orders Only [facility] Medical Group Family Medicine [address] [place] [address] Alee Elizondo PA Breast cancer screening by mammogram (Primary Dx) 09/25/2024 11:00 AM CDT Office Visit [facility] at [address] [phone] Jessica Collins NP Influenza A (Primary Dx); Acute cough 09/25/2024 Results Follow-Up [facility] Medicine [address] [place] [address] [address] [place] [address] Alee Elizondo PA 09/20/2024 8:00 AM CDT Office Visit [facility] Cardiology [address] [place] [phone] Devika Marin MD Venous insufficiency (chronic) (peripheral) (Primary Dx); Mixed hyperlipidemia 09/20/2024 Telephone [facility] Orthopedics and Sports Medicine [address] [place] [address] [place] [phone] Michael Motta MD med clarification 09/14/[address] [phone] Codi Branham higinio 09/13/2024 2:45 PM CDT Office Visit [facility] Orthopedics and Sports Medicine [address] [place] [address] [place] [phone] Michael Motta MD Chronic pain of right knee (Primary Dx); History of total knee arthroplasty, right 09/13/2024 1:44 PM CDT - 09/13/2024 11:59 PM CDT Hospital Encounter [facility] Diag Imaging [address] [place] [phone] Chronic pain of right knee Discharge Disposition: Discharge to home or self care 09/04/2024 Results Follow-Up [facility] Medicine [address] [place] [address] [address] [place] [address] Alee Elizondo PA 08/31/[address] [place] [phone] Alee Elizondo PA Medical Question/Miscellaneou s 08/31/2024 Orders Only [address] [place] [phone] ProviderTania MD 08/29/2024 Nurse Triage [address] [place] [phone] Alee Elizondo PA 08/29/[address] [phone] Shailesh Dunn MD Med Refill (Ropinirol HCL 0.5MG tab) 08/24/2024 Results Follow-Up [address] [phone] Sangita Farrar PA 08/23/2024 11:30 AM SUPERVISOR COLOR MAKING Office Visit [address] [phone] Sangita Farrar PA 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) (Primary Dx); Primary osteoarthritis involving multiple joints; Encounter for medication monitoring 08/23/2024 Orders Only [facility] Health Information Management [address] [place] [phone] Alee Elizondo PA 08/23/[address] [phone] Sangita Farrar PA Orencia Approved 08/21/[address] [phone] Codi Branham 08/02/2024 11:45 AM SUPERVISOR COLOR MAKING Office Visit [facility] Pulmonary [address] [phone] Magaly Snider NP OWEN on CPAP (Primary Dx); OWEN (obstructive sleep apnea); PLMD (periodic limb movement disorder) 08/02/2024 Telephone [facility] Pulmonary [place] [address] [place] [address] Shailesh Dunn MD Orders Only 08/01/2024 Orders Only [facility] Medicine [address] [place] [address] [address] [place] [phone] Alee Elizondo PA Pre-diabetes (Primary Dx); Mixed hyperlipidemia; Fatigue, unspecified type 07/30/2024 9:00 AM SUPERVISOR COLOR MAKING Office Visit [address] [phone] Sangita Farrar PA 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) (Primary Dx); Primary osteoarthritis involving multiple joints; Encounter for medication monitoring 07/24/2024 2:00 PM SUPERVISOR COLOR MAKING Office Visit [facility] Orthopedics and Sports Medicine [address] [place] [phone] Michael Motta MD Status post total knee replacement using cement, right (Primary Dx) 07/24/2024 1:27 PM SUPERVISOR COLOR MAKING - 07/24/2024 11:59 PM SUPERVISOR COLOR MAKING Hospital Encounter [facility] Diag Imaging [address] [place] [phone] Status post total knee replacement using cement, right Discharge Disposition: Discharge to home or self care 07/24/[address] [place] [address] Alee Elizondo PA Referral Request (/) 07/12/2024 Telephone [facility] Orthopedics and Sports Medicine [address] [place] [phone] Michael Motta MD ret call from [...] Name Status Comments Brother Father Salomón Mother Jeantete Social History Tobacco Use Types Packs/Day Years Used Date Smoking Tobacco: Never Smokeless Tobacco: Never Tobacco Cessation:Counseling Given: Not Answered Comments:Never used Alcohol Use Standard Drinks/Week Comments No 0 (1 standard drink = 0.6 oz pur e alcohol) [facility] Utilities Answer Date Recorded In the past 12 months has [employer], gas, oil, or water [employer] threatened to shut off services in your [...] often do you attend chur ch or sikhism services? 1 to 4 times per year [...] a nursing home (including now)? No 05/27/2023 PHQ-9 Answer [...] file Legal Sex Female 8:04 PM SUPERVISOR COLOR MAKING Gender Identity Female 02/15/2020 6:08 PM CDT [...] history exists Medical Devices Implanted Type Area Design Quality Engineer Device Identifier Shelf Expiration Date Model / Serial / Lot [employer] Simplex P Radiopaque Full Dose Cement Bone Sterile 6191-1-010 - [id number] Implanted:Qty: 2 on 05/04/2023 by Michael Motta MD at [facility] Bone Cement Left: Knee [employer] 05/03/2025 6191-1-010 / 6191-1-001 / [id number] [employer] Simplex P Radiopaque Full Dose Cement Bone Sterile 6191-1-010 - [id number] Implanted:Qty: 2 on 05/30/2024 by Michael Motta MD at [facility] Bone Cement Right: [facility] [id number] 05/03/2026 6191-1-010 / / [id number] [employer] Persona 14mm 30+ Mm Knee Tibia Taper Extension Stem [id number] - [id number] 4 - [id number] Implanted:Qty: 1 on 05/04/2023 by Michael Motta MD at [facility] Left: Knee [employer] [id number] 02/15/2033 [id number] / 04-9216-529- 14 / [id number] [employer] Persona Cemented Cruciate Retaining Knee Left 7 Narrow Component [id number] - [id number] 1 - [id number] Implanted:Qty: 1 on 05/04/2023 by Michael Motta MD at [facility] Left: Knee [employer] [id number] 10/25/2032 [id number] / 64-2188-926- 01 / [id number] [employer] Baseplate Tibial Knee Cemented Left Fixed Stemmed Persona Size D Tivanium [id number] - [id number] 1 - [id number] Implanted:Qty: 1 on 05/04/2023 by Michael Motta MD at [facility] Left: Knee [employer] [id number] 09/11/2032 [id number] / 74-9306-527- 01 / [id number] [employer] Persona 11mm Knee Left 6-7 C-D Insert Articular Vivacit-E Sterile [id number] - F04-1633-883-1 1 - [id number] Implanted:Qty: 1 on 05/04/2023 by Michael Motta MD at [facility] Left: Knee [employer] [id number] 12/28/2025 [id number] / 25-3254-184- 11 / [id number] [employer] Persona 32mm Knee Component Patellar All Poly Latex Free 24-5142-150-32 - [id number] Implanted:Qty: 1 on 05/04/2023 by Michael Motta MD at [facility] [employer] 12/19/2027 [id number] / / [id number] [employer] Baseplate Tibial Knee Cemented Right Fixed Stemmed Persona Size C Tivanium [id number] - [id number] Implanted:Qty: 1 on 05/30/2024 by Michael Motta MD at [facility] Right: Knee [employer] [id number] 03/22/2033 [id number] / / [id number] [employer] Persona 29mm Knee Component Patellar All Poly Latex Free [id number] - [id number] Implanted:Qty: 1 on 05/30/2024 by Michael Motta MD at [facility] Right: Knee [employer] [id number] 12/18/2028 [id number] / / [id number] [employer] Persona 13mm Cruciate Retain Knee Right 6-7 Cd Insert Articular Latex Free [id number] - [id number] Implanted:Qty: 1 on 05/30/2024 by Micahel Motta MD at [facility] Right: Patella [employer] [id number] 05/04/2025 [id number] / / [id number] [employer] Persona Cruciate Retaining Cemented Knee Right 7 Narrow Component [id number] - [id number] Implanted:Qty: 1 on 05/30/2024 by Michael Motta MD at [facility] Right: Knee [employer] [id number] 12/27/2033 [id number] / / [id number] [employer] Persona 14mm 30+ Mm Knee Tibia Taper Extension Stem [id number] - [id number] Implanted:Qty: 1 on 05/30/2024 by Michael Motta MD at [facility] Right: Knee [employer] [id number] 04/11/2034 [id number] / / [id number] Procedures Procedure Name Priority Date/Time Associated Diagnosis Comments POC INFLUENZA A/B, COVID-19 ANTIGEN Routine 09/25/2024 11:02 AM CDT Influenza A Acute cough XR KNEE RIGHT 3 VIEWS Schedule Routine, Read Routine (OP Routine) 09/13/2024 1:48 PM CDT Chronic pain of right knee CT ABDOMEN PELVIS W CONTRAST Schedule Routine, Read Routine (OP Routine) 08/29/2024 12:23 PM SUPERVISOR COLOR MAKING COMPREHENSIVE METABOLIC PANEL Routine 08/23/2024 2:11 PM SUPERVISOR COLOR MAKING Encounter for medication monitoring CBC WITH AUTO DIFFERENTIAL Routine 08/23/2024 2:11 PM SUPERVISOR COLOR MAKING Encounter for medication monitoring SCAN - LABS 08/23/2024 VITAMIN B12 Routine 08/02/2024 7:41 AM SUPERVISOR COLOR MAKING Fatigue, unspecified type LIPID PANEL Routine 08/02/2024 7:41 AM SUPERVISOR COLOR MAKING Mixed hyperlipidemia HEMOGLOBIN A1C Routine 08/02/2024 7:41 AM SUPERVISOR COLOR MAKING Pre-diabetes COMPREHENSIVE METABOLIC PANEL Routine 08/02/2024 7:41 AM SUPERVISOR COLOR MAKING Mixed hyperlipidemia CBC WITH AUTO DIFFERENTIAL Routine 08/02/2024 7:41 AM SUPERVISOR COLOR MAKING Fatigue, unspecified type TSH Routine 08/02/2024 7:41 AM SUPERVISOR COLOR MAKING Fatigue, unspecified type ERYTHROCYTE SEDIMENTATION RATE Routine 07/30/2024 2:36 PM SUPERVISOR COLOR MAKING 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) CRP (ACUTE PHASE) Routine 07/30/2024 2:3 6 PM SUPERVISOR COLOR MAKING 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) COMPREHENSIVE METABOLIC PANEL Routine 07/30/2024 2:36 PM SUPERVISOR COLOR MAKING Encounter for medication monitoring CBC WITH AUTO DIFFERENTIAL Routine 07/30/2024 2:36 PM SUPERVISOR COLOR MAKING Encounter for medication monitoring XR KNEE RIGHT 3 VIEWS Schedule Routine, Read Routine (OP Routine) 07/24/2024 1:35 PM SUPERVISOR COLOR MAKING Status post total knee replacement using cement, right SCREENING MAMMOGRAM BILATERAL W DYLLAN Schedule Routine, Read Routine (OP Routine) 08/02/2023 7:33 AM SUPERVISOR COLOR MAKING Breast cancer screening by mammogram DEXA AXIAL SKELETON BONE DENSITY 1 OR MORE SITES Schedule Routine, Read Routine (OP Routine) 04/12/2023 8:14 AM CDT COLONOSCOPY Routine 07/27/2021 HEPATITIS C ANTIBODY Routine 06/04/2020 10:29 AM SUPERVISOR COLOR MAKING Encounter for screening for other viral diseases Chronic fatigue from Last 3 Months or Most Recently Relevant to Health Maintenance Results * (ABNORMAL) POC Influenza A/B, COVID-19 antigen (09/25/2024 11:02 AM CDT) Influenza A Ag, POC Positive(A) Negative [facility] Influenza B Ag, POC Negative Negative [facility] COVID-19 Ag POC Presumptive Negative Presumptive Negative, Invalid [facility] Nasal 09/25/2024 11:0 2 AM CDT us Jessica Collins NP POINT OF CARE TEST ORDERABLES Final Result Performing Organization Address City/State/[facility] Co de Phone Number [facility] ED[facility] [address] [place] [address] * XR Knee Right 3 Views (09/13/2024 [...] John Sparrow M.D. RB T: Report ID: [id number] Reading Location: [id number] Procedure Note John Sparrow MD - 09/18/2024 [...] John Sparrow M.D. RB T: Report ID: [id number] Reading Location: [place] [address] Michael Motta MD IMIke XR PROCEDURES Final Re sult * (ABNORMAL) CT Abdomen Pelvis W Contrast (08/29/2024 12:23 PM SUPERVISOR COLOR MAKING) Anatomical Region Laterality Modality Body N/A Computed Tomogra phy Historical Provider MD LUN[facility] CT PROCEDURES Edited Result - Final * CBC with auto differential (08/23/2024 2:11 PM SUPERVISOR COLOR MAKING) WBC 4.8 3.8 - 10.8 Thousand/u L [...] [facility] Blood 08/23/2024 2:11 PM SUPERVISOR COLOR MAKING 08/23/2024 2:11 PM SUPERVISOR COLOR MAKING Sangita OSMAN LAB BLOOD ORDERABLES Vy l Result [facility] [address] [place] [address] * (ABNORMAL) Comprehensive metabolic panel (08/23/2024 2:11 PM SUPERVISOR COLOR MAKING) Pathologist [facility] Glucose 188(H) 65 - 99 mg/dL [facility] [...] [facility] Blood 08/23/2024 2:11 PM SUPERVISOR COLOR MAKING 08/23/2024 2:11 PM SUPERVISOR COLOR MAKING Sangita OSMAN LAB BLOOD ORDERABLES Vy l Result [facility] [address] [place] [address] * SCAN - LABS (08/23/2024) Alee OSMAN Final Resu lt * (ABNORMAL) CBC with auto differential (08/02/2024 7:41 AM SUPERVISOR COLOR MAKING) WBC 4.0 3.8 - 10.8 Thousand/u L [...] [facility] Blood 08/02/2024 7:41 AM SUPERVISOR COLOR MAKING 08/02/2024 7:42 AM SUPERVISOR COLOR MAKING us Alee OSMAN LAB BLOOD ORDERABLES Final Result [facility] [address] [place] [address] * TSH (08/02/2024 7:41 AM SUPERVISOR COLOR MAKING) TSH 1.57 0.40 - 4.50 mIU/L [facility] Blood 08/02/2024 7:41 AM SUPERVISOR COLOR MAKING 08/02/2024 7:42 AM SUPERVISOR COLOR MAKING Alee OSMAN LAB BLOOD ORDERABLES Final Result Performing Organization Address [facility] Co de Phone Number [facility] [address] [place] [address] * Hemoglobin A1c (08/02/2024 7:41 AM SUPERVISOR COLOR MAKING) Hgb A1C 5.4 <5.7 % of total Hgb [facility] Comment: For the purpose of screening for the presence of diabetes: <5.7% Consistent with the absence of diabetes 5.7-6.4% Consistent with increased risk for diabetes (prediabetes) > or =6.5% Consistent with diabetes This assay result is consistent with a decreased risk of diabetes. Currently, no consensus exists regarding use of hemoglobin A1c for diagnosis of diabetes in children. According to [place] Diabetes Association (ADA) guidelines, hemoglobin A1c <7.0% represents optimal control in non- diabetic patients. Different metrics may apply to specific patient populations. Standards of Medical Care in Diabetes(ADA). Blood 08/02/2024 7:41 AM SUPERVISOR COLOR MAKING 08/02/2024 7:42 AM SUPERVISOR COLOR MAKING Alee OSMAN LAB BLOOD ORDERABLES Final Result Performing Organization Address [facility] Co de Phone Number [facility] [address] [place] [address] * Vitamin B12 (08/02/2024 7:41 AM SUPERVISOR COLOR MAKING) Vitamin B12 349 200 - 1,100 pg/mL [...] have symptoms. Blood 08/02/2024 7:41 AM SUPERVISOR COLOR MAKING 08/02/2024 7:42 AM SUPERVISOR COLOR MAKING Alee OSMAN LAB BLOOD ORDERABLES Final Result Performing Organization Address [facility] Co de Phone Number [facility] [address] [address] * Lipid panel (08/02/2024 7:41 AM SUPERVISOR COLOR MAKING) Cholesterol 127 <200 mg/dL [facility] [...] LDL-C. Barry FREITAS et al. ELAINE. 2013;310(19): 6457-4576 (http://education.Pagevamp/faq/ZKG726) Chol/HDL ratio 1.7 <5.0 (calc) [facility] Non-HDL, (LDL+VLDL) 52 <130 mg/dL (calc) [facility] Comment: For patients with diabetes plus 1 major ASCVD risk factor, treating to a non-HDL-C goal of <100 mg/dL (LDL-C of <70 mg/dL) is considered a therapeutic option. Blood 08/02/2024 7:41 AM SUPERVISOR COLOR MAKING 08/02/2024 7:42 AM SUPERVISOR COLOR MAKING Alee OSMAN LAB BLOOD ORDERABLES Final Result Performing Organization Address [facility] Co de Phone Number [facility] [address] [address] [place] [address] * Comprehensive metabolic panel (08/02/2024 7:41 AM SUPERVISOR COLOR MAKING) Glucose 99 65 - 99 mg/dL [facility] [...] [facility] Blood 08/02/2024 7:41 AM SUPERVISOR COLOR MAKING 08/02/2024 7:42 AM SUPERVISOR COLOR MAKING us Alee OSMAN LAB BLOOD ORDERABLES Final Result [facility] [address] [place] [address] * CBC with auto differential (07/30/2024 2:36 PM SUPERVISOR COLOR MAKING) WBC 6.4 3.8 - 10.8 Thousand/u L [...] [facility] Blood 07/30/2024 2:36 PM SUPERVISOR COLOR MAKING 07/30/2024 2:36 PM SUPERVISOR COLOR MAKING us Sangita OSMAN LAB BLOOD ORDERABLES Vy l Result [facility] [address] [place] [address] * Erythrocyte sedimentation rate (07/30/2024 2:36 PM SUPERVISOR COLOR MAKING) Pathologist [facility] Erythrocyte sedimentation rate 11 < OR = 30 mm/h [facility] Blood 07/30/2024 2:36 PM SUPERVISOR COLOR MAKING 07/30/2024 2:36 PM SUPERVISOR COLOR MAKING Sangita Magalijose Farrar PA LAB BLOOD ORDERABLES Vy l Result Performing Organization Address [facility]/ZIP Co de Phone Number [facility] [address] [place] [address] * CRP (acute phase) (07/30/2024 2:36 PM SUPERVISOR COLOR MAKING) Pathologist [facility] C-RP <3.0 <8.0 mg/L [facility] Blood 07/30/2024 2:36 PM SUPERVISOR COLOR MAKING 07/30/2024 2:36 PM SUPERVISOR COLOR MAKING [facility] Mag[facility] Farrar MS LAB BLOOD ORDERABLES Vy l Result Performing Organization Address [facility] de Phone Number [facility] [address] [place] [address] * (ABNORMAL) Comprehensive metabolic panel (07/30/2024 2:36 PM SUPERVISOR COLOR MAKING) Pathologist [facility] Glucose 115(H) 65 - 99 mg/dL [facility] [...] [facility] Blood 07/30/2024 2:36 PM SUPERVISOR COLOR MAKING 07/30/2024 2:36 PM SUPERVISOR COLOR MAKING us Sangita OSMAN LAB BLOOD ORDERABLES Vy l Result [facility] [address] [place] [address] * XR Knee Right 3 Views (07/24/2024 1:35 PM SUPERVISOR COLOR MAKING) Anatomical Region Laterality Modality Lower Extremities, Knee Right Computed Radiography 07/25/2024 7:16 AM SUPERVISOR COLOR MAKING Narrative 07/25/2024 7:18 AM SUPERVISOR COLOR MAKING EXAM DESCRIPTION: XR KNEE RIGHT 3 VIEWS [...] signed by Elton CABA T: Report ID: [id number] Reading Location: [id number] Procedure Note Elton Jonas MD - 07/25/2024 [...] signed by Elton CABA T: Report ID: [id number] Reading Location: [id number] Michael Motta MD IMG XR PROCEDURES Final Re sult * Screening Mammogram Bilateral W Dyllan (08/02/2023 7:33 AM SUPERVISOR COLOR MAKING) Anatomical Region Laterality Modality Breast Bilateral Mammography Alee OSMAN IMG MAMMO PROCEDURES Edite d Result - Final * (ABNORMAL) Dexa Axial Skeleton Bone Density 1 or 2 Site (04/12/2023 8:14 AM CDT) Anatomical Region Laterality Modality Body N/A Radiographic Mleanie ging Historical Provider IMG DXA PROCEDURES Edited Result - Final * Colonoscopy (07/27/2021) Anatomical Region Laterality Modality Other Historical Provider ENDOSCOPY PROCEDURES Vy l Result * Hepatitis C antibody (06/04/2020 10:29 AM SUPERVISOR COLOR MAKING) Hep C Ab NON-REACTI VE NON-REACT ALEXYS [facility] SIGNAL TO CUT-OFF 0.02 <1.00 [facility] Comment: HCV antibody was non-reactive. There is no laboratory evidence of HCV infection. In most cases, no further action is required. However, if recent HCV exposure is suspected, a test for HCV RNA (test code 68657) is suggested. For additional information please refer to http://education.Pretio Interactive/faq/UWQ16q4 (This link is being provided for informational/ educational purposes only.) Blood specimen (specimen) 06/04/2020 10:29 AM SUPERVISOR COLOR MAKING 06/04/2020 10:30 AM SUPERVISOR COLOR MAKING Sangita OSMAN LAB MICROBIOLOGY - GENERA L ORDERABLES Final Result [facility] [address] [place] [address] from Last 3 Months or Most Recently Relevant to Health Maintenance Insurance [facility] MEDICARE ADVANTAGE Advance Directives For more information, please contact: [phone] Documents on File Type Date Recorded Patient Combat Control Expl anation ADVANCE DIRECTIVE 05/17/2024 2:13 PM Yonis r of Extracorporeal Circulation Specialist-Medical * Full Code (Latest Code Status on File) Date Activated Date Inactivated Comments 05/30/2024 12:38 PM 06/05/2024 6:31 PM * Full Code Date Activated Date Inactivated Comments 05/04/2023 2:33 PM 05/07/2023 3:07 AM * Full Code Date Activated Date Inactivated Comments 03/22/2021 4:39 PM 03/25/2021 6:17 PM Care Teams Detail Drafter Relationship Specialty Start Date End Date Alee Elizondo PA [address] [place] [address] PCP - General Internal Medicine 07/05/23 Sharan Linton MD Referring Physician Gastroenterology 10/31/18 Martha Starks MD Consulting Physician Cardiology 12/24/20 Shama Hines MD [address] [facility], [address] [address] Consulting Physician Pain Management 01/19/21 Artis Grewal MD [address] [place] [address] Consulting Physician Rheumatology 01/30/21 Amy Mayes NP [address] [address] Nurse Practitioner Cardiovascular Disease 04/20/24 Shailesh Dunn MD [address] [address] Consulting Physician Pulmonary Disease 04/20/24 Sangita Farrar PA [address] [place] [address] Physician Video Control Engineer Rheumatology 05/15/24
--- OUTSIDE RECORDS SUMMARY | 2024-10-02 14:36 | XMS_ITS | Encounter Summary ---
Author Organization [facility] Facility Care Team Providers Care Cleaner Assistant Name Role Phone Alee Elizondo Primary Care Provider + [phone] Sharan Linton MD Unavailable [phone] Taisha Gomez MD Unavailable [phone] Parag Soto MD Unavailable [phone] RaziaMartha singh MD Unavailable [phone] Puneet Uribe MD Unavailable [phone] Shama Hines MD Unavailable Artis Grewal MD Unavailable [phone] Harrison Pena RN Unavailable [phone] Nafisa Gregg RN Unavailable [phone] Tho Kelsey MD Primary Care Provider [phone] Alee Elizondo Primary Care Provider + [phone] Amy Mayes NP Unavailable [phone] Shailesh Dunn MD Unavailable [phone] Sangita Farrar Unavailable [phone] Encounter Details Date Type Department Care Team (Latest Contact Info) Description 08/10/2017 Orders Only [facility] CLINCONV Provider, MD Tania [address] [place] [address] Social History Tobacco Use Types Packs/Day Years Used Date Smoking Tobacco: Never Smokeless Tobacco: Never Alcohol Use Standard Drinks/Week Comments No 0 (1 standard drink = 0.6 oz pur e alcohol) Comments Unknown Sex and Gender Information Value Date Recorded Sex Assigned at Not on file Legal Sex Female 8:04 PM CHARTERED WEALTH MANAGER Gender Identity Female 02/15/2020 6:08 PM CDT Sexual Orientation Not on file documented as of this encounter Plan of Treatment Not on file documented as of this encounter Procedures Procedure Name Priority Date/Time Associated Diagnosis Comments CARDIOLOGY REPORT 08/10/2017 12: 00 AM CHARTERED WEALTH MANAGER documented in this encounter Results * CARDIOLOGY REPORT (08/10/2017 12:00 AM CHARTERED WEALTH MANAGER) Anatomical Region Laterality Modality Other Narrative 08/10/2017 12:00 AM CHARTERED WEALTH MANAGER Ordered by an unspecified provider. us Historical Provider [facility] LEANDRA LANDRUM Final Result documented in this encounter Visit Diagnoses Not on filedocumented in this encounter Additional Health Concerns Infection Onset Date Last Indicated Resolved Time COVID: Suspected 08/13/2021 08/14/2021 08/14/2021 3:06 AM CHARTERED WEALTH MANAGER COVID: Suspected 08/14/2021 08/14/2021 08/15/2021 3:05 AM CHARTERED WEALTH MANAGER COVID: Suspected 08/14/2021 08/14/2021 08/15/2021 6:25 AM CHARTERED WEALTH MANAGER COVID: Suspected 06/02/2023 06/02/2023 06/02/2023 7:25 PM CHARTERED WEALTH MANAGER COVID: Suspected 07/26/2023 07/26/2023 07/26/2023 3:10 PM CHARTERED WEALTH MANAGER COVID: Suspected 09/25/2024 09/25/2024 09/25/2024 11:03 AM CDT Influenza, adult 09/25/2024 09/25/2024 10/02/2024 3:05 AM CDT documented as of this encounter Care Teams Cleaner Assistant Relationship Specialty Start Date End Date Alee Elizondo PA [address] [facility] [address] [place] [address] PCP - General Internal Medicine 02/01/17 06/29/23 Tho Kelsey MD [address] [facility] [address] [place] [address] PCP - General Family Medicine 06/30/23 07/04/23 Alee Elizondo PA [address] [place] [address] PCP - General Internal Medicine 07/05/23 Sharan Linton MD [address] [facility] [address] [place], [place] [id number] Referring Physician Gastroenterology 10/31/18 Taisha Gomez MD [address] [facility] [address] [place], [place] [address] Referring Physician Pulmonary Disease 10/31/18 12/23/20 Parag Soto MD [address] [facility] [address] [place], [place] [address] Referring Physician Rheumatology 10/31/18 12/23/20 Martha Starks MD [address] [facility] [facility] [address] [place], [place] [address] Consulting Physician Cardiology 12/24/20 Puneet Uribe MD [address] [facility] [address] [facility] [address] [place] [address] Consulting Physician Rheumatology 12/24/20 01/29/21 Shama Hines MD [address] [facility] [address] [place] [address] Consulting Physician Pain Management 01/19/21 Artis Grewal MD [address] [place] [address] Consulting Physician Rheumatology 01/30/21 Harrison Pena, JULIUS [address] [place] [address] Trial Examiner 05/30/23 09/04/23 Nafisa Gregg, JULIUS [address] [place] [address] [address] [place] [address] Trial Examiner 06/06/23 06/12/23 Amy Mayes NP [address] [address] Nurse Practitioner Cardiovascular Disease 04/20/24 Shailesh Dunn MD [address] [facility] [address] [place] [address] Consulting Physician Pulmonary Disease 04/20/24 Sangita Farrar PA [address] [place] [address] Physician School Cafeteria Cook Rheumatology 05/15/24 documented as of this encounter
--- OUTSIDE RECORDS SUMMARY | 2024-10-02 14:36 | XMS_ITS | Referral Summary ---
Author Organization [facility] [address] Address [address] [place] [address] Care Team Providers Care Technical Applications Scientist Name Role Phone Sharan Linton MD Unavailable [phone] Martha Starks MD Unavailable [phone] Shama Hines MD Unavailable Artis Grewal MD Unavailable [phone] Alee Elizondo Primary Care Provider [phone] Amy Mayes NP Unavailable [phone] Shailesh Dunn MD Unavailable [phone] Sangita Farrar Unavailable [phone] Encounters Date Type Department Care Team Description 09/26/2024 Orders Only [facility] Family Medicine [address] [place] [address] [place] [phone] Alee Elizondo PA Breast cancer screening by mammogram (Primary Dx) 09/25/2024 Results Follow-Up [facility] [address] [place] [address] [place] [phone] Alee Elizondo PA 09/25/2024 11:00 AM CDT Office Visit [facility] [address] [address] Jessica Collins NP Influenza A (Primary Dx); Acute cough 09/20/2024 Telephone [facility] Orthopedics and Sports Medicine [facility] [address] [place] [phone] Michael Motta MD med clarification 09/20/2024 8:00 AM CDT Office Visit [facility] Cardiology [address] [place] [address] Devika Marin MD Venous insufficiency (chronic) (peripheral) (Primary Dx); Mixed hyperlipidemia 09/14/[address] [phone] Codi Branham 09/13/2024 1:44 PM CDT - 09/13/2024 11:59 PM CDT Hospital Encounter [facility] Di[facility] Imaging [address] [place] [address] Chronic pain of right knee Discharge Disposition: Discharge to home or self care 09/13/2024 2:45 PM CDT Office Visit [facility] Orthopedics and Sports Medicine [facility] [address] [place] [phone] Michael Motta MD Chronic pain of right knee (Primary Dx); History of total knee arthroplasty, right 09/04/2024 Results Follow-Up [address] [place] [address] Alee Elizondo PA 08/31/2024 Telephone [facility] [address] [place] [address] Road [address] [place] [address] Alee Elizondo PA Medical Question/Miscellaneou s 08/31/2024 Orders Only [address] [place] [address] ProviderTania MD 08/29/2024 Nurse Triage [address] [place] [address] Alee Elizondo PA 08/29/2024 Telephone [facility] Pulmonary [address] [address] Shailesh Dunn MD Med Refill (Ropinirol HCL 0.5MG tab) 08/24/2024 Results Follow-Up [address] [address] Sangita Farrar PA 08/23/2024 Orders Only [facility] Health Information Management [address] [place] [address] Alee Elizondo PA 08/23/[address] [address] Sangita Farrar PA Orencia Approved 08/23/2024 11:30 AM POWER SHOVEL ENGINEER Office Visit [address] [address] Sangita Farrar PA 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) (Primary Dx); Primary osteoarthritis involving multiple joints; Encounter for medication monitoring 08/21/[address] [address] Codi Branham 08/02/2024 Telephone [facility] Pulmonary [address] [address] Shailesh Dunn MD Orders Only 08/02/2024 11:45 AM POWER SHOVEL ENGINEER Office Visit [facility] Pulmonary [address] [address] Magaly Snider NP OWEN on CPAP (Primary Dx); OWEN (obstructive sleep apnea); PLMD (periodic limb movement disorder) 08/01/2024 Orders Only [facility] Family Medicine [address] [place] [address] Alee Elizondo PA Pre-diabetes (Primary Dx); Mixed hyperlipidemia; Fatigue, unspecified type 07/30/2024 9:00 AM POWER SHOVEL ENGINEER Office Visit [facility] [address] [place] [phone] Sangita Farrar PA 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) (Primary Dx); Primary osteoarthritis involving multiple joints; Encounter for medication monitoring 07/24/2024 1:27 PM POWER SHOVEL ENGINEER - 07/24/2024 11:59 PM POWER SHOVEL ENGINEER Hospital Encounter [facility] Di[facility] [address] [place] [address] Status post total knee replacement using cement, right Discharge Disposition: Discharge to home or self care 07/24/2024 Telephone [facility] Family Medicine [address] [place] [address] Alee Elizondo PA Referral Request (/) 07/24/2024 2:00 PM POWER SHOVEL ENGINEER Office Visit [facility] Orthopedics and Sports Medicine [address] [place] [address] [address] [place] [address] Michael Motta MD Status post total knee replacement using cement, right (Primary Dx) 07/12/2024 Telephone [facility] Orthopedics [facility] Sports Medicine [address] [place] [address] [address] [place] [address] Michael Motta MD ret call from Last [...] 05/07/20 Assessment & Plan (05/07/2024 8:57 PM POWER SHOVEL ENGINEER): I have examined this patient and ordered [...] She has had evaluation by Urology at [facility] and has been told [...] 08/03/2023 Assessment & Plan (05/07/2024 8:56 PM POWER SHOVEL ENGINEER): Discussed the patient's BMI. The BMI is [...] provided. Assessment & Plan (09/06/2023 9:38 AM POWER SHOVEL ENGINEER): Discussed the patient's BMI. The BMI is above average. BMI management plan is completed. BMI Follow-up includes: nutrition counseling, exercise counseling and education provided. Patient has an obesity-related condition (not limited to: hypertension, obstructive sleep apnea, osteoarthritis, hyperlipidemia, diabetes, etc.). Therefore, morbid obesity may be documented for patients with a BMI between 35.00-39.99. Assessment & Plan (08/07/2023 7:51 PM POWER SHOVEL ENGINEER): Discussed the patient's BMI. The BMI is above average. BMI management plan is completed. BMI Follow-up includes: nutrition counseling, exercise counseling and education provided. Patient has an obesity-related condition (not limited to: hypertension, obstructive sleep apnea, osteoarthritis, hyperlipidemia, diabetes, etc.). Therefore, morbid obesity may be documented for patients with a BMI between 35.00-39.99. Assessment & Plan (08/03/2023 7:45 AM POWER SHOVEL ENGINEER): Discussed the patient's BMI. The BMI is above average. BMI management plan is completed. BMI Follow-up includes: nutrition counseling, exercise counseling and education provided. Primary osteoarthritis of right knee 07/08/2023 Assessment & Plan (05/07/2024 8:56 PM POWER SHOVEL ENGINEER): Patient has arthritis in the right knee. Planning a total knee replacement with Dr. Alexus Motta on May 30 Assessment & Plan (08/03/2023 8:28 AM POWER SHOVEL ENGINEER): Continue per ortho. She is seeing some improvement but it is difficult to know if the knee is rheumatoid versus osteo versus other etiology. Will await recommendations from JACQUI Raya but definitely encouraged her to become active as soon as possible. Status post total knee replacement using cement, right 05/19/2023 Assessment & Plan (06/02/2023 4:56 PM POWER SHOVEL ENGINEER): Status post total knee replacement with Dr. Ge Sexton 04 May. She has just been released from rehab following up for her TCM visit. She appears to have an area of cellulitis at the incision site. She is also complaining of increased pain. Will check CBC CMP and inflammatory markers along with an x-ray. She plans to go to [facility] for the workup. Will follow up [...] provided. Assessment & Plan (06/02/2023 8:27 AM POWER SHOVEL ENGINEER): Discussed the patients BMI: The BMI is [...] 12/20/2022 Assessment & Plan (05/07/2024 8:55 PM POWER SHOVEL ENGINEER): Patient is on medication for her rheumatoid arthritis managed by [facility] Assessment & Plan (01/22/2024 8:13 PM CDT): Medications from [facility] contribute to her immunosuppressive state. Assessment & Plan (09/06/2023 9:41 AM POWER SHOVEL ENGINEER): Medications are managed by [facility] for her rheumatoid arthritis Assessment & Plan (04/06/2023 7:44 PM CDT): Managed by [facility]. Currently on Plaquenil methotrexate Orencia folic [...] She has had evaluation by Urology at [facility] and has been told [...] capacity. Assessment & Plan (09/06/2023 9:41 AM POWER SHOVEL ENGINEER): Continue per . She did not tolerate [...] Pate. Assessment & Plan (07/18/2022 10:20 AM POWER SHOVEL ENGINEER): CT revealed pelvic lipomatosis that is compressing [...] 02/11/2022 Assessment & Plan (09/06/2023 9:41 AM POWER SHOVEL ENGINEER): No change. Dysfunction of both eustachian tubes 02/11/2022 Myalgia, lower leg 01/11/2022 PLMD (periodic limb movement disorder) Assessment & Plan (08/02/2024 11:49 AM POWER SHOVEL ENGINEER): Asymptomatic Assessment & Plan (06/22/2022 10:31 AM POWER SHOVEL ENGINEER): Will continue Requip 1 mg nightly Assessment [...] bedtime. Assessment & Plan (07/13/2021 11:25 AM POWER SHOVEL ENGINEER): Due to the patient stating that she [...] 06/04/2020 Assessment & Plan (08/23/2024 10:16 AM POWER SHOVEL ENGINEER): Hepatitis negative 06/2020 Tspot negative 06/2020 Continue routine lab monitoring Maintain routine eye exams throughout the duration of taking hydroxychloroquine Assessment & Plan (07/30/2024 8:24 AM POWER SHOVEL ENGINEER): Hepatitis negative 06/2020 Tspot negative 06/2020 Continue [...] hydroxychloroquine Assessment & Plan (09/01/2023 8:34 AM POWER SHOVEL ENGINEER): Hepatitis negative 06/2020 Tspot negative 06/2020 Continue routine lab monitoring Maintain routine eye exams throughout the duration of taking hydroxychloroquine Assessment & Plan (06/29/2023 2:19 PM POWER SHOVEL ENGINEER): Hepatitis negative 06/2020 Tspot negative 06/2020 Continue [...] hydroxychloroquine Assessment & Plan (07/14/2022 2:58 PM POWER SHOVEL ENGINEER): Hepatitis negative 06/2020 Tspot negative 06/2020 Continue routine lab monitoring Maintain routine eye exams throughout the duration of taking hydroxychloroquine Assessment & Plan (06/03/2022 9:58 AM POWER SHOVEL ENGINEER): Hepatitis negative 06/2020 Tspot negative 06/2020 Continue [...] hydroxychloroquine Assessment & Plan (09/03/2021 8:29 AM POWER SHOVEL ENGINEER): Hepatitis negative 06/2020 Tspot negative 06/2020 Continue routine lab monitoring Maintain routine eye exams throughout the duration of taking hydroxychloroquine Assessment & Plan (06/03/2021 4:17 PM POWER SHOVEL ENGINEER): Hepatitis negative 06/2020 Tspot negative 06/2020 Continue [...] hydroxychloroquine Assessment & Plan (09/02/2020 1:16 PM POWER SHOVEL ENGINEER): Hepatitis negative 06/2020 Tspot negative 06/2020 Continue routine lab monitoring Maintain routine eye exams throughout the duration of taking hydroxychloroquine Assessment & Plan (07/09/2020 12:23 PM POWER SHOVEL ENGINEER): Hepatitis negative 06/2020 Tspot negative 06/2020 Continue routine lab monitoring Maintain routine eye exams throughout the duration of taking hydroxychloroquine Drug-induced constipation 08/13/2019 Assessment & Plan (05/07/2024 8:54 PM POWER SHOVEL ENGINEER): Patient with chronic constipation. Has been on [...] linzess Assessment & Plan (08/13/2019 8:57 AM POWER SHOVEL ENGINEER): On Movantik with Dr. Soto Herpes zoster without complication 12/13/2018 Assessment & Plan (12/23/2018 10:18 PM CDT): Valtex to pharmacy. She has had shingles in the past. Pre-diabetes 10/31/2018 Assessment & Plan (05/07/2024 8:55 PM POWER SHOVEL ENGINEER): Pre-diabetes/hyperglycemia is a precursor to Dm. Stressed [...] diabetes. Assessment & Plan (09/06/2023 9:40 AM POWER SHOVEL ENGINEER): Pre-diabetes/hyperglycemia is a precursor to Dm. Stressed [...] diabetes. Assessment & Plan (09/11/2021 11:22 PM POWER SHOVEL ENGINEER): Pre-diabetes/hyperglycemia is a precursor to Dm. Stressed importance of working on diet (decrease your simple sugars and one carbohydrate with each meal) and increase you exercise to achieve weight loss and this will help prevent you from progressing to diabetes. Assessment & Plan (05/29/2021 8:18 PM POWER SHOVEL ENGINEER): Pre-diabetes/hyperglycemia is a precursor to Dm. Stressed [...] diabetes. Assessment & Plan (08/31/2020 9:34 AM POWER SHOVEL ENGINEER): Pre-diabetes is a precursor to Dm. Stressed [...] diabetes. Assessment & Plan (08/13/2019 9:00 AM POWER SHOVEL ENGINEER): This is a significant, separately identifiable problem [...] 10/31/2018 Assessment & Plan (05/07/2024 8:54 PM POWER SHOVEL ENGINEER): Depression symptoms are stable with Wellbutrin XL 150 Cymbalta 60 b.i.d. Assessment & Plan (04/21/2024 8:50 PM CDT): Depression symptoms are stable with the Wellbutrin XL 150 and Cymbalta 60 b.i.d. Assessment & Plan (01/22/2024 8:11 PM CDT): Depression symptoms are stable with Wellbutrin and Cymbalta Assessment & Plan (09/06/2023 9:40 AM POWER SHOVEL ENGINEER): Depression is stable with Wellbutrin and Cymbalta Assessment & Plan (08/03/2023 8:31 AM POWER SHOVEL ENGINEER): Stable with Cymbalta 60 and Wellbutrin XL [...] Cymbalta Assessment & Plan (09/11/2021 11:26 PM POWER SHOVEL ENGINEER): Continue Wellbutrin and Cymbalta Assessment & Plan (05/29/2021 8:22 PM POWER SHOVEL ENGINEER): Continue Wellbutrin and Cymbalta Assessment & Plan (05/24/2021 10:39 AM POWER SHOVEL ENGINEER): Continue Wellbutrin and Cymbalta Assessment & Plan (12/24/2020 9:07 AM CDT): Continue wellbutrin and cymbalta Assessment & Plan (08/31/2020 9:35 AM POWER SHOVEL ENGINEER): Continue wellbutrin and cymbalta Assessment & Plan (02/18/2020 9:47 PM CDT): Stable with the Cymbalata Assessment & Plan (08/13/2019 8:59 AM POWER SHOVEL ENGINEER): Stable with Cymbalta and Wellbutrin Assessment & [...] regimen. Med list updated to reflect the [id number] one daily and Prozac 40mg. Mixed hyperlipidemia 03/29/2018 Assessment & Plan (05/07/2024 8:54 PM POWER SHOVEL ENGINEER): Encouraged patient to follow low fat/low chol [...] statin Assessment & Plan (09/06/2023 9:42 AM POWER SHOVEL ENGINEER): Encouraged patient to follow low fat/low chol [...] statin Assessment & Plan (09/11/2021 11:26 PM POWER SHOVEL ENGINEER): Encouraged patient to follow low fat/low chol diet like the Mediterranean diet. Increase good fats in the diet. Increase exercise. Monitor labs as needed. Continue statin Assessment & Plan (05/29/2021 8:22 PM POWER SHOVEL ENGINEER): Encouraged patient to follow fat/low chol diet like the Mediterranean diet. Increase good fats in the diet. Increase exercise. Monitor labs as needed. Continue statin Assessment & Plan (05/24/2021 10:39 AM POWER SHOVEL ENGINEER): Encouraged patient to follow fat/low chol diet like the Mediterranean diet. Increase good fats in the diet. Increase exercise. Monitor labs as needed. Continue statin Assessment & Plan (12/24/2020 9:07 AM CDT): Encouraged patient to follow fat/low chol diet like the Mediterranean diet. Increase good fats in the diet. Increase exercise. Monitor labs as needed. Continue statin Assessment & Plan (08/31/2020 9:34 AM POWER SHOVEL ENGINEER): Encouraged patient to follow fat/low chol diet like the Mediterranean diet. Increase good fats in the diet. Increase exercise. Monitor labs as needed. Continue statin Assessment & Plan (02/18/2020 9:46 PM CDT): Encouraged patient to continue low fat/low chol diet. Continue exercise. Increase good fats in the diet. Monitor labs as needed. Assessment & Plan (08/13/2019 8:59 AM POWER SHOVEL ENGINEER): Encouraged patient to continue low fat/low chol [...] future Assessment & Plan (09/06/2023 9:40 AM POWER SHOVEL ENGINEER): Continue PPI Assessment & Plan (04/06/2023 7:36 PM CDT): Continue PPI p.r.n. Assessment & Plan (01/20/2023 8:13 PM CDT): Continue PPI Assessment & Plan (09/12/2022 6:13 PM CDT): Continue PPI p.r.n. Assessment & Plan (06/03/2022 3:40 PM POWER SHOVEL ENGINEER): Pyrosis poorly controlled on Nexium. Pt has [...] PPI Assessment & Plan (09/11/2021 11:26 PM POWER SHOVEL ENGINEER): Continue PPI Assessment & Plan (12/24/2020 9:05 AM CDT): Continue PPI Assessment & Plan (02/18/2020 9:45 PM CDT): Continue PPI. Saw Dr. Linton for increased GERD sxs. If persist, encouraged to followup again with Dr. Linton. Assessment & Plan (08/13/2019 8:58 AM POWER SHOVEL ENGINEER): Stable with PPI Assessment & Plan (04/29/2019 [...] exertion) Assessment & Plan (06/22/2022 10:30 AM POWER SHOVEL ENGINEER): Patient is not currently using inhalers. She [...] 10/14/2015 Assessment & Plan (08/02/2024 11:49 AM POWER SHOVEL ENGINEER): Due to the patient stating the pressure [...] readjusted. She denied need for supplies. DME [facility] patient Assessment & Plan (05/07/2024 8:55 PM POWER SHOVEL ENGINEER): Continue with CPAP. Assessment & Plan (04/21/2024 8:49 PM CDT): Continue per Dr. Dunn. Has all her needed supplies for CPAP which she is using every night. Continue with Requip 0.5 mg HS for restless leg Assessment & Plan (01/22/2024 8:08 PM CDT): Continue CPAP per Dr. Dunn Assessment & Plan (09/06/2023 9:40 AM POWER SHOVEL ENGINEER): Continue CPAP Assessment & Plan (06/21/2023 10:14 AM POWER SHOVEL ENGINEER): Patient continue to wear her CPAP at [...] CPAP Assessment & Plan (06/22/2022 10:31 AM POWER SHOVEL ENGINEER): Will continue CPAP therapy at an auto titrating range of 7-20 cm water pressure. Denied need for supplies. DME [employer] patient Assessment & Plan (05/02/2022 9:15 PM [...] water pressure. Patient denied need for supplies. [employer] [facility]. Patient is benefitting CPAP Assessment & Plan (09/11/2021 11:22 PM POWER SHOVEL ENGINEER): Continue CPAP. Patient has all needed supplies. Assessment & Plan (07/13/2021 11:27 AM POWER SHOVEL ENGINEER): Due to the patient stating she does not have enough pressure in her machine, I have increased the pressure to 13 cm water pressure. The patient denied need for for supplies. DME company [facility]. Have also ordered a new smart card set at 13 cm water pressure. Benefitting from CPAP therapy Assessment & Plan (05/29/2021 8:14 PM POWER SHOVEL ENGINEER): Continue CPAP. Assessment & Plan (02/17/2021 11:09 AM CDT): The patient continues to be compliant with her CPAP at 8 cm water pressure. She has developed worsening daytime hypersomnia. She also has morning headaches and dry mouth. I have recommended proceeding with a CPAP titration study starting at 8 cm water pressure. Her DME is [facility]. Assessment & Plan (12/24/2020 9:04 AM CDT): Continue CPAP. Would like to see Pulm/sleep at [facility] as difficulty getting in consistently at [facility] and most of her care is now [facility] Assessment & Plan (02/18/2020 9:44 PM CDT): Continue CPAP Assessment & Plan (08/13/2019 8:46 AM POWER SHOVEL ENGINEER): Using the CPAP. Has equipment as needed. [...] noted. Assessment & Plan (08/23/2024 10:16 AM POWER SHOVEL ENGINEER): 02/2021 XR L knee with mild to moderate OA, now s/p B TKA. Following with ortho as planned. Assessment & Plan (07/30/2024 11:23 AM POWER SHOVEL ENGINEER): 02/2021 XR L knee with mild to [...] March. Assessment & Plan (09/01/2023 3:42 PM POWER SHOVEL ENGINEER): 02/2021 XR L knee with mild to moderate OA, R knee negative. Had injections with ortho without benefit, now s/p L TKA. Assessment & Plan (06/30/2023 12:46 PM POWER SHOVEL ENGINEER): 02/2021 XR L knee with mild to [...] g/d. Assessment & Plan (07/15/2022 1:41 PM POWER SHOVEL ENGINEER): 02/2021 XR L knee with mild to moderate OA, R knee negative. Had injections with ortho with benefit. Unable to afford PT. Can continue Tylenol Arthritis, not to exceed 4 g/d. Assessment & Plan (06/03/2022 9:58 AM POWER SHOVEL ENGINEER): 02/2021 XR L knee with mild to [...] evaluation. Assessment & Plan (09/03/2021 11:27 AM POWER SHOVEL ENGINEER): XR L knee with mild to moderate [...] able. Assessment & Plan (06/04/2021 10:27 AM POWER SHOVEL ENGINEER): XR L knee with mild to moderate [...] above. Assessment & Plan (09/03/2020 12:23 PM POWER SHOVEL ENGINEER): 10/27/2017 XR L knee: mild tricompartmental OA. Will continue meloxicam as above. Assessment & Plan (07/09/2020 12:24 PM POWER SHOVEL ENGINEER): 10/27/2017 XR L knee: mild tricompartmental OA. [...] examination. Assessment & Plan (08/23/2024 12:54 PM POWER SHOVEL ENGINEER): Moderate cdai with report of increasing pain, [...] needed. Assessment & Plan (07/30/2024 11:22 AM POWER SHOVEL ENGINEER): Moderate cdai with report of increased morning [...] phone visit with labs near her home ([facility] in [place]), but the following month will need to plan for an in person visit. She expressed understanding and agreement with this plan. Continue methotrexate 20 mg weekly, folic acid 2 mg daily, and hydroxychloroquine 200 mg BID. Labs today as below. Assessment & Plan (05/07/2024 8:55 PM POWER SHOVEL ENGINEER): Managed by [facility]. Currently on Plaquenil and methotrexate and Orencia folic acid Mobic and gabapentin. Stressed she needs to be in contact with her orthopedic physician assistant on when and which medicines to stop for the surgery. Assessment & Plan (04/21/2024 8:49 PM CDT): Continue per [facility]. They currently manage her [...] Plan (01/22/2024 8:17 PM CDT): Continue per [facility] as they manage her condition. Assessment & Plan (11/24/2023 9:58 AM CDT): Low cdai without inflammatory sounding pain. Will continue methotrexate 20 mg weekly, folic acid 2 mg daily, hydroxychloroquine 200 mg BID, and Orencia and monitor. Labs today as below. Follow up in 3 months or sooner as needed. Assessment & Plan (09/06/2023 9:42 AM POWER SHOVEL ENGINEER): Rheumatoid arthritis is managed by [facility]. Currently on Plaquenil methotrexate Orencia and folic acid Assessment & Plan (09/01/2023 3:39 PM POWER SHOVEL ENGINEER): Overall stable without notable synovitis and no inflammatory sounding pain. Will continue methotrexate 20 mg weekly, folic acid 2 mg daily, hydroxychloroquine 200 mg BID, and Orencia and monitor. Labs today as below. Follow up in 3 months or sooner as needed. Assessment & Plan (08/03/2023 8:28 AM POWER SHOVEL ENGINEER): Continue with rheumatology. Assessment & Plan (06/30/2023 12:43 PM POWER SHOVEL ENGINEER): Overall stable without notable synovitis and no inflammatory sounding pain. Will continue methotrexate 20 mg weekly, folic acid 2 mg daily, hydroxychloroquine 200 mg BID, and Orencia and monitor. Labs today as below. Assessment & Plan (06/02/2023 4:49 PM POWER SHOVEL ENGINEER): Continue per Rheumatology Assessment & Plan (04/06/2023 7:35 PM CDT): Continue per Rheumatology. She has been in discussion with them on what medications to stop prior to her knee surgery. She states she was told to take all of her medicines accept the Orencia. Assessment & Plan (01/20/2023 8:12 PM CDT): Continue per Rheumatology [facility] Assessment & Plan (01/13/2023 3:42 [...] Plan (09/12/2022 6:06 PM CDT): Continue with [facility] Assessment & Plan (07/15/2022 1:41 PM POWER SHOVEL ENGINEER): Low cdai. Significantly improved after IM triamcinolone [...] needed. Assessment & Plan (06/03/2022 3:37 PM POWER SHOVEL ENGINEER): High cdai. Previously felt well controlled with current regimen. Due to burden of disease will give patient a triamcinolone injection. Patient made aware of SE of steroids including but not limited to HTN, increased blood glucose, cataracts, glaucoma, AVN, and osteoporosis with termite treater helper use. Should she flare again shortly after [...] (01/23/2022 4:57 PM CDT): Continue management per [facility] Assessment & Plan (12/07/2021 9:02 AM CDT): Low cdai. Denies inflammatory sounding joint pain. Continue methotrexate 25 mg weekly, folic acid to 2 mg daily, Rinvoq 15 mg daily, hydroxychloroquine 200 mg BID, and cyclobenzaprine 5 mg qhs and monitor. Labs today as below. Plan for follow up in 3 months or sooner as needed. Assessment & Plan (09/11/2021 11:14 PM POWER SHOVEL ENGINEER): Continue per [facility] Assessment & Plan (09/03/2021 11:25 AM POWER SHOVEL ENGINEER): cdai = 12. Pt suspects increased joint [...] needed. Assessment & Plan (06/04/2021 10:25 AM POWER SHOVEL ENGINEER): Low cdai. Denies inflammatory sounding pain at present. Will plan to continue methotrexate 25 mg weekly, folic acid to 2 mg daily, Rinvoq 15 mg daily, hydroxychloroquine 200 mg BID, and cyclobenzaprine 5 mg qhs and monitor. Labs today as below. Plan for follow up in 3 months or sooner as needed. Assessment & Plan (05/31/2021 9:15 PM POWER SHOVEL ENGINEER): Continue per Rheumatology Assessment & Plan (05/29/2021 8:13 PM POWER SHOVEL ENGINEER): Continue per Rheumatology. Currently on Plaquenil methotrexate and folic acid. Assessment & Plan (05/24/2021 10:38 AM POWER SHOVEL ENGINEER): Continue per Rheumatology Assessment & Plan (03/05/2021 [...] needed. Assessment & Plan (09/03/2020 12:22 PM POWER SHOVEL ENGINEER): Low cdai. Continues to feel improved with [...] needed. Assessment & Plan (08/31/2020 9:34 AM POWER SHOVEL ENGINEER): Continue per [facility] Assessment & Plan (07/09/2020 12:22 PM POWER SHOVEL ENGINEER): 64yoF with a h/o seropositive RA diagnosed [...] time. Assessment & Plan (06/04/2020 11:14 AM POWER SHOVEL ENGINEER): 64yoF with a h/o seropositive RA diagnosed [...] needed. Assessment & Plan (05/14/2020 9:33 PM POWER SHOVEL ENGINEER): Refer to new Fiber Optics Engineer as Dr. Soto has . Assessment & Plan (02/18/2020 9:46 PM CDT): Continue per Rheum Assessment & Plan (08/13/2019 8:59 AM POWER SHOVEL ENGINEER): Continue per Dr. Soto Assessment & Plan [...] responding to Reclast. Forteo was tried by [facility] and she could not [...] of her osteoporosis, recommended evaluation by the [facility], unfortunately their first available appt was in November 2024. Recommended today that she check with [facility] (at [facility]) to see how far out they are scheduling new patients, though she does not like this option due to distance from her house. Assessment & Plan (09/06/2023 9:40 AM POWER SHOVEL ENGINEER): Managed by [facility]. Per patient they are making a referral to bone metabolism at [facility] she has not seen significant improvement with the Forteo or the Reclast. Assessment & Plan (09/01/2023 3:43 PM POWER SHOVEL ENGINEER): DEXA: Lspine BMD 0.809 Tscore -2.2, L [...] of her osteoporosis, recommend evaluation by the [facility], provided contact info for Dr. Castillo. Pt in agreement with plan. Assessment & Plan (06/30/2023 12:49 PM POWER SHOVEL ENGINEER): DEXA: Lspine BMD 0.809 Tscore -2.2, L [...] PM CDT): Continue to monitor. Managed by [facility]. Patient is on Reclast calcium vitamin-D [...] exercise Assessment & Plan (07/15/2022 1:42 PM POWER SHOVEL ENGINEER): 01/27/2021 DEXA: Lspine -1.8, L femoral neck -1.9, L total hip -1.2, R femoral neck -2.3, R total hip -1.0, FRAX major 32% and hip 7%. Received Reclast 07/2021. Continue yearly Reclast, scheduled for 07/22 Assessment & Plan (06/03/2022 3:38 PM POWER SHOVEL ENGINEER): 01/27/2021 DEXA: Lspine -1.8, L femoral neck [...] Plan (01/23/2022 5:02 PM CDT): Managed by [facility] currently on Reclast calcium and vitamin-D Assessment & Plan (12/07/2021 9:04 AM CDT): 01/27/2021 DEXA: Lspine -1.8, L femoral neck -1.9, L total hip -1.2, R femoral neck -2.3, R total hip -1.0, FRAX major 32% and hip 7%. Received Reclast 07/2021. Continue yearly Reclast. Assessment & Plan (09/03/2021 11:26 AM POWER SHOVEL ENGINEER): 01/27/2021 DEXA: Lspine -1.8, L femoral neck -1.9, L total hip -1.2, R femoral neck -2.3, R total hip -1.0, FRAX major 32% and hip 7%. Received Reclast 07/2021. Continue yearly reclast and daily vitamin D-calcium supplement. Assessment & Plan (06/04/2021 10:27 AM POWER SHOVEL ENGINEER): 01/27/2021 DEXA: Lspine -1.8, L femoral neck [...] today, she will schedule at [facility] Assessment & Plan (12/24/2020 9:06 AM CDT): Continue Reclast thru Rheum Continue calcium, vitD and exercise Assessment & Plan (12/03/2020 10:45 AM CDT): Vitamin D level was 68. Received Reclast 07/09/2020. Last DEXA per available records was 01/31/2019, due this summer - order provided today, she will schedule at [facility] Assessment & Plan (09/03/2020 12:23 PM POWER SHOVEL ENGINEER): Vitamin D level was 68. Received Reclast 07/09/2020. Last DEXA per available records was 01/31/2019, due this summer. Assessment & Plan (07/09/2020 12:23 PM POWER SHOVEL ENGINEER): Overdue for Reclast, last infusion was 03/28/2019, will receive infusion today. Vitamin D level was 68 Last DEXA per available records was 01/31/2019 Assessment & Plan (06/04/2020 11:15 AM POWER SHOVEL ENGINEER): Overdue for Reclast, last infusion was 03/28/2019, will check benefits. Recheck vitamin D level now. Last DEXA per available records was 01/31/2019 Assessment & Plan (02/18/2020 9:46 PM CDT): Calcium, vit D and exercise. Continue to monitor DXA Assessment & Plan (08/13/2019 8:58 AM POWER SHOVEL ENGINEER): Continue with Calcium, Vit D and Exercise. [...] Krishnamurthy. 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 Daniels Stressed importance of very close follow-up BMI 37.0-37.9, adult 09/06/2023 024 Assessment & Plan (10/13/2023 7:38 AM CDT): Discussed the patient's BMI. The BMI is above average. BMI management plan is completed. BMI Follow-up includes: nutrition counseling, exercise counseling and education provided. Assessment & Plan (09/06/2023 9:42 AM POWER SHOVEL ENGINEER): Discussed the patient's BMI. The BMI is above average. BMI management plan is completed. BMI Follow-up includes: nutrition counseling, exercise counseling and education provided. Hyperglycemia 09/06/2023 09/06/2023 Positive depression screening 09/06/2023 09/06/2023 Annual physical exam 09/06/2023 024 Assessment & Plan (09/06/2023 9:43 AM POWER SHOVEL ENGINEER): Encouraged healthy lifestyle, good nutrition and exercise. Encouraged Calcium and Vitamin D and weight bearing exercise for bone health. Reviewed immunizations Reviewed age appropirate screenings. Right knee pain 08/09/2023 09/06/2023 Sinus congestion 08/07/2023 09/06/2023 Assessment & Plan (08/07/2023 7:54 PM POWER SHOVEL ENGINEER): Persistent sinusitis symptoms along with cough. Will start doxy b.i.d.. Start antihistamine (Claritin OR Zyrtec), Mucinex 12hour and Steroid nasal spray (Flonase). Push fluids. Rest. Supportive care. If sxs worsen or don\'t improve, pt is to followup in the office. Acute cough 08/07/2023 01/22/2024 Assessment & Plan (08/07/2023 7:55 PM POWER SHOVEL ENGINEER): Persistent sinusitis symptoms along with cough. Will start doxy b.i.d.. Start antihistamine (Claritin OR Zyrtec), Mucinex 12hour and Steroid nasal spray (Flonase). Push fluids. Rest. Supportive care. If sxs worsen or don\'t improve, pt is to followup in the office. BMI 35.0-35.9,adult 08/03/2023 09/06/19 Assessment & Plan (08/07/2023 7:51 PM POWER SHOVEL ENGINEER): Discussed the patient's BMI. The BMI is above average. BMI management plan is completed. BMI Follow-up includes: nutrition counseling, exercise counseling and education provided. Assessment & Plan (08/03/2023 8:29 AM POWER SHOVEL ENGINEER): Discussed the patient's BMI. The BMI is [...] 01/22/2024 Assessment & Plan (06/02/2023 4:57 PM POWER SHOVEL ENGINEER): Later in the day received critical lab call for a CO2 value at 42. My staff contacted the patient and she was instructed to go to the ER for further evaluation to determine underlying cause. She states throughout the day she has noticed a little bit more shortness of breath. She plans to have her brother drive her to [facility]. Charge nurse was notified of the arrival [...] surgery. Will defer cardiac clearance to her grease remover. Her chronic medical conditions are stable. [facility] as instructed her to hold the [...] Dr. Ge Sexton on May 04 at [facility]. Need for vaccination for Strep pneumoniae 01/20/2023 [...] symptoms worsen or do not respond to [id number] allergy medicines within the next week she may call and will consider antibiotic. Left knee pain 09/13/2022 09/06/2023 BMI 39.0-39.9,adult 08/23/2022 11/09/19 Assessment & Plan (10/25/2022 3:32 PM CDT): Discussed the patient's BMI. The BMI is above average. BMI management plan is completed. BMI Follow-up includes: nutrition counseling, exercise counseling and education provided. Assessment & Plan (08/23/2022 2:19 PM POWER SHOVEL ENGINEER): Discussed the patient's BMI. The BMI is [...] plans Assessment & Plan (07/18/2022 10:20 AM POWER SHOVEL ENGINEER): CT revealed pelvic lipomatosis that is compressing [...] 12/20/2022 Assessment & Plan (07/18/2022 10:21 AM POWER SHOVEL ENGINEER): CT revealed pelvic lipomatosis that is compressing [...] plan, Assessment & Plan (07/08/2022 12:33 PM POWER SHOVEL ENGINEER): Patient has had dysuria. She was started [...] STAT abd/pelvis with and without contrast at [facility]. Check labs STAT. Acute right flank pain 07/08/202204/06 Assessment & Plan (07/18/2022 10:21 AM POWER SHOVEL ENGINEER): CT revealed pelvic lipomatosis that is compressing [...] plan, Assessment & Plan (07/08/2022 5:58 PM POWER SHOVEL ENGINEER): Images from the original note were not [...] STAT abd/pelvis with and without contrast at [facility]. Check labs STAT. STAT CT Abd/pelvis without [...] 09/06/2023 Assessment & Plan (07/08/2022 12:33 PM POWER SHOVEL ENGINEER): Patient has had dysuria. She was started [...] STAT. Assessment & Plan (07/06/2022 8:50 AM POWER SHOVEL ENGINEER): Pt presents with dysuria. Urine dip completed. [...] 35.00-39.99. Assessment & Plan (07/18/2022 10:23 AM POWER SHOVEL ENGINEER): Discussed the patient's BMI. The BMI is above average. BMI management plan is completed. BMI Follow-up includes: nutrition counseling, exercise counseling and education provided. Assessment & Plan (07/08/2022 12:30 PM POWER SHOVEL ENGINEER): Discussed the patient's BMI. The BMI is [...] She has received multiple injections from her orthopedic physician assistant regarding her knee but yesterday when she [...] 01/23/2022 Assessment & Plan (09/11/2021 11:28 PM POWER SHOVEL ENGINEER): Patient has never had a full skin exam. She has quite a few lesions scattered and would benefit from a full exam. Will make referral Annual physical exam 09/11/2021 022 Assessment & Plan (09/11/2021 11:28 PM POWER SHOVEL ENGINEER): Encouraged healthy lifestyle, good nutrition and exercise. Encouraged Calcium and Vitamin D and weight bearing exercise for bone health. Reviewed immunizations Reviewed age appropirate screenings. Cough 08/13/2021 01/23/2022 Assessment & Plan (08/13/2021 3:43 PM POWER SHOVEL ENGINEER): Patient to presume positive COVID/FLU until results are available and plan to self isolate for up to 10 days from the onset of sxs. Check COVID/FLU test thru [facility] collection site in [place]. Let pt know the newest CDC recommendations [...] future. Assessment & Plan (07/13/2021 11:28 AM POWER SHOVEL ENGINEER): I have ordered the patient Claritin 10 [...] provided. Assessment & Plan (09/11/2021 11:27 PM POWER SHOVEL ENGINEER): Obesity is unchanged. Discussed the patient's BMI. The BMI is above average. BMI management plan is completed. BMI Follow-up includes: nutrition counseling, exercise counseling and education provided. Assessment & Plan (05/29/2021 8:24 PM POWER SHOVEL ENGINEER): Obesity is unchanged. Discussed the patient's BMI. The BMI is above average. BMI management plan is completed. BMI Follow-up includes: nutrition counseling, exercise counseling and education provided. Assessment & Plan (05/12/2021 1:26 PM POWER SHOVEL ENGINEER): Obesity is unchanged. Discussed the patient's BMI. The BMI is above average. BMI management plan is completed. BMI Follow-up includes: nutrition counseling, exercise counseling and education provided. BMI 37.0-37.9, adult 05/12/2021 022 Assessment & Plan (09/11/2021 11:27 PM POWER SHOVEL ENGINEER): Obesity is unchanged. Discussed the patient's BMI. The BMI is above average. BMI management plan is completed. BMI Follow-up includes: nutrition counseling, exercise counseling and education provided. Assessment & Plan (05/29/2021 8:24 PM POWER SHOVEL ENGINEER): Obesity is unchanged. Discussed the patient's BMI. The BMI is above average. BMI management plan is completed. BMI Follow-up includes: nutrition counseling, exercise counseling and education provided. Assessment & Plan (05/12/2021 1:26 PM POWER SHOVEL ENGINEER): Obesity is unchanged. Discussed the patient's BMI. The BMI is above average. BMI management plan is completed. BMI Follow-up includes: nutrition counseling, exercise counseling and education provided. Tinea corporis 04/14/2021 01/23/2022 Assessment & Plan (05/31/2021 9:15 PM POWER SHOVEL ENGINEER): Improving with Lotrisone. Keep the area clean and dry Assessment & Plan (05/29/2021 8:24 PM POWER SHOVEL ENGINEER): Lotrisone to pharmacy. Encouraged her to keep the area clean and dry use her dryer to dry the skin before applying the cream. She is to call if symptoms worsen or do not resolve. Need for immunization against influenza 04/14/2021 05/31/2021 Assessment & Plan (05/29/2021 8:24 PM POWER SHOVEL ENGINEER): Fluid updated in the office Medicare annual wellness visit, subsequent 04/13/2021 05/31/2021 Assessment & Plan (05/29/2021 8:23 PM POWER SHOVEL ENGINEER): Encouraged healthy lifestyle, good nutrition and exercise. [...] 12/30/2020 Assessment & Plan (08/31/2020 9:31 AM POWER SHOVEL ENGINEER): Error. This should be right calf but PT order sent and corrected so unable to remove. Fatigue 08/31/2020 09/06/2023 Assessment & Plan (04/06/2023 7:43 PM CDT): Probably multifactorial. Check labs and followup to re-evaluate Assessment & Plan (05/02/2022 9:16 PM CDT): Probably multifactorial. Check labs and followup to re-evaluate Assessment & Plan (08/31/2020 9:34 AM POWER SHOVEL ENGINEER): Probably multifactorial. Check labs and followup to re-evaluate Pain in both lower extremities 08/31/2020 09/06/2023 Assessment & Plan (09/01/2023 3:41 PM POWER SHOVEL ENGINEER): Cramping lower leg pain has resolved with [...] 021 Assessment & Plan (08/31/2020 9:33 AM POWER SHOVEL ENGINEER): Obesity is unchanged. Discussed the patient's BMI. The BMI is above average. BMI management plan is completed. BMI Follow-up includes: nutrition counseling, exercise counseling and education provided. Pain of right calf 08/26/2020 Assessment & Plan (08/31/2020 9:31 AM POWER SHOVEL ENGINEER): This is a significant, separately identifiable problem that was evaluated and managed on the same day as the wellness exam Unable to rule out DVT with her calf pain/sxs. Check STAT Venous doppler. Recvd Results and discussed with patient via phone. Negative for DVT. Recommend PT. Prefers [facility] Annual physical exam 08/24/2020 Assessment & Plan (08/31/2020 9:34 AM POWER SHOVEL ENGINEER): Encouraged healthy lifestyle, good nutrition and exercise. Encouraged Calcium and Vitamin D and weight bearing exercise for bone health. Reviewed immunizations Reviewed age appropirate screenings. Dizziness 05/07/2020 09/06/2023 Assessment & Plan (05/14/2020 9:35 PM POWER SHOVEL ENGINEER): Suspect the dizziness is inner ear related. [...] imaging. Assessment & Plan (05/07/2020 1:49 PM POWER SHOVEL ENGINEER): Declines to report to er now 'I [...] 05/14/2020 Assessment & Plan (05/07/2020 1:49 PM POWER SHOVEL ENGINEER): Declines to report to er now 'I [...] 12/30/2020 Assessment & Plan (05/07/2020 1:49 PM POWER SHOVEL ENGINEER): Declines to report to er now 'I [...] provided Assessment & Plan (05/31/2021 9:15 PM POWER SHOVEL ENGINEER): Mammogram order provided Assessment & Plan (02/18/2020 9:47 PM CDT): Mammogram order provided today Medicare annual wellness visit, subsequent 02/15/2020 02/15/2020 Precordial pain 09/04/2019 09/06/2023 Assessment & Plan (08/07/2023 7:50 PM POWER SHOVEL ENGINEER): Workup in the hospital. Cardiology states her [...] inhaler. Assessment & Plan (07/13/2021 11:26 AM POWER SHOVEL ENGINEER): The patient will continue with Dulera 2 [...] 020 Assessment & Plan (08/13/2019 8:59 AM POWER SHOVEL ENGINEER): Encouraged healthy lifestyle, good nutrition and exercise. Encouraged Calcium and Vitamin D and weight bearing exercise for bone health. Reviewed immunizations Reviewed age appropirate screenings. Obesity, morbid, BMI 40.0-49.9 08/13/2019 09/23/2020 Assessment & Plan (08/26/2020 7:10 AM POWER SHOVEL ENGINEER): Obesity is unchanged. Discussed the patient's BMI. The BMI is above average. BMI management plan is completed. BMI Follow-up includes: nutrition counseling, exercise counseling and education provided. Assessment & Plan (05/14/2020 9:33 PM POWER SHOVEL ENGINEER): Obesity is unchanged. Discussed the patient's BMI. [...] provided. Assessment & Plan (08/13/2019 8:58 AM POWER SHOVEL ENGINEER): Obesity is unchanged. Discussed the patient's BMI. [...] change Assessment & Plan (08/13/2019 9:01 AM POWER SHOVEL ENGINEER): This is a significant, separately identifiable problem [...] 01/22/2024 Assessment & Plan (09/06/2023 9:42 AM POWER SHOVEL ENGINEER): Probably multifactorial. Check labs and followup to re-evaluate Assessment & Plan (09/03/2021 11:28 AM POWER SHOVEL ENGINEER): She notes increased fatigue and lack of [...] re-evaluate Assessment & Plan (08/13/2019 9:08 AM POWER SHOVEL ENGINEER): Probably multifactorial. Check labs and followup to re-evaluate Check labs prior to next visit BMI 40.0-44.9, adult 08/02/2019 020 Assessment & Plan (08/13/2019 8:57 AM POWER SHOVEL ENGINEER): Obesity is unchanged. Discussed the patient's BMI. The BMI is above average. BMI management plan is completed. BMI Follow-up includes: nutrition counseling, exercise counseling and education provided. Assessment & Plan (08/02/2019 7:21 AM POWER SHOVEL ENGINEER): Obesity is unchanged. Discussed the patient's BMI. The BMI is above average. BMI management plan is completed. BMI Follow-up includes: nutrition counseling, exercise counseling and education provided. Morbid obesity 08/02/2019 08/13/2019 Assessment & Plan (08/02/2019 7:20 AM POWER SHOVEL ENGINEER): Obesity is unchanged. Discussed the patient's BMI. The BMI is above average. BMI management plan is completed. BMI Follow-up includes: nutrition counseling, exercise counseling and education provided. Acute non-recurrent maxillary sinusitis 08/02/2019 08/13/2019 Assessment & Plan (08/02/2019 7:47 AM POWER SHOVEL ENGINEER): Start antibiotic, antihistamine, Mucinex and Steroid nasal [...] foot. She is being sent directly to [facility] and they were working her in today. [...] 21 Assessment & Plan (05/14/2020 9:33 PM POWER SHOVEL ENGINEER): Completed Doxy and steroid. No s/s infection. [...] p.r.n. 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 She is on aspirin and statin Assessment & Plan (12/24/2020 9:03 AM CDT): Sxs stable. On ASA, statin and encouraged daily exercise. Assessment & Plan (02/18/2020 9:43 PM CDT): Continue per cardio. On ASA and statin Assessment & Plan (08/13/2019 8:45 AM POWER SHOVEL ENGINEER): Continues with Dr. Alonso salmeron Assessment & Plan (11/01/2018 11:00 PM CDT): Pt sxs well controlled. 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 Continue per cardio Depression 07/16/2018 09/11/2021 Frontal sinusitis 06/26/2018 12/24/2020 Leukopenia 03/29/2018 12/30/2020 Other chronic pain 08/05/2017 3 Chronic seasonal allergic rh initis due to pollen 04/25/2017 12/30/2020 Assessment & Plan (12/24/2020 9:03 AM CDT): Continue current regimen with singulair and otc Assessment & Plan (02/18/2020 9:44 PM CDT): Continue with otc regimen Assessment & Plan (08/13/2019 8:46 AM POWER SHOVEL ENGINEER): Continue current regimen Assessment & Plan (11/01/2018 [...] potassium Assessment & Plan (09/11/2021 11:26 PM POWER SHOVEL ENGINEER): Bp is stable/in acceptable range for any co-morbidities. Encouraged to limit sodium intake and exercise for weight control. Currently stable without medication Assessment & Plan (05/29/2021 8:19 PM POWER SHOVEL ENGINEER): Bp is stable/in acceptable range for any co-morbidities. Encouraged to limit sodium intake and exercise for weight control. Continue Lasix is helping with the swelling and addition. Blood pressure stable Assessment & Plan (05/24/2021 10:38 AM POWER SHOVEL ENGINEER): Continue Lasix potassium Assessment & Plan (12/24/2020 9:05 AM CDT): Bp is stable/in acceptable range for any co-morbidities. Encouraged to limit sodium intake and exercise for weight control. Assessment & Plan (08/31/2020 9:32 AM POWER SHOVEL ENGINEER): Bp is stable/in acceptable range for any co-morbidities. Encouraged to limit sodium intake and exercise for weight control. Stable with laxis currently Assessment & Plan (02/18/2020 9:44 PM CDT): Bp is stable/in acceptable range for any co-morbidities. Encouraged to limit sodium intake and exercise for weight control. Assessment & Plan (08/13/2019 8:57 AM POWER SHOVEL ENGINEER): Bp is stable/in acceptable range for any [...] difficulty pulling them. Recommend finding some on [facility] that fit her calf that she can zip on and off. Showed them to her on [facility] and where to order them. She states she will try to get them. Assessment & Plan (05/31/2021 9:16 PM POWER SHOVEL ENGINEER): Improving slowly. May have been due to the Relafen. She is on 60 of Lasix with potassium 10 mEq daily. Continue with current plan. Keep legs elevated. Utilize compressi to improve cleared. on hose. Call if symptoms worsen or do not continue to improve. Assessment & Plan (05/29/2021 8:23 PM POWER SHOVEL ENGINEER): Persistent lower extremity edema that has improved [...] CMP. Assessment & Plan (05/24/2021 10:39 AM POWER SHOVEL ENGINEER): Patient that her swelling was improving since discharge for over the last day or so it seems to be increasing. Will increase the Lasix to 40mg Start K 10meq daily Recheck labs in 5 days Assessment & Plan (08/31/2020 9:33 AM POWER SHOVEL ENGINEER): Continue lasix Palpitations 12/08/2015 12/30/2020 Overview (10/09/2016): Palpitations Other abnormal glucose 11/11/201508/31 Asthma 10/14/2015 12/24/2020 Assessment & Plan (08/13/2019 8:49 AM POWER SHOVEL ENGINEER): Continue with current regimen and with Pulmonary Assessment & Plan (11/01/2018 10:53 PM CDT): Currently Stable with regimen. Monitor closely with current allergy season. Followup Dr. Gomez as directed. Menopause 10/14/2015 12/30/2020 Cervical pain (neck) 10/14/2015 023 Immunizations Immunization Administration Dates Next Due COVID-19 mRNA (Duplia) 0.3 m L (30 mcg) vaccine (12 [...] drink = 0.6 oz pur e alcohol) [facility] Utilities Answer Date Recorded In the past 12 months has e [employer], gas, oil, or water company threatened to [...] you attend chur ch or tenriism services? 1 to 4 times per year 05/30/2024 Do you belong to any clubs o r organizations such as congregational groups, unions, fraternal or athletic groups, or [...] in a [facility]p (including now)? No 05/27/2023 PHQ-9 Answer Date [...] any time in the past 12 m [facility], were you homeless or living in a mcfp (including now)? No 05/30/2024 Personal Safety Answer Date Recorded Have you ever been in or are you currently in a harmful physical or emotional relationship or is someone making you feel afraid or unsafe? Denies 05/30/2024 Comments No Sex and Gender Information Value Date Recorded Sex Assigned at Not on file Legal Sex Female 8:04 PM POWER SHOVEL ENGINEER Gender Identity Female 02/15/2020 6:08 PM [...] on file Medical Devices Implanted Type Area Cartography Teacher Device Identifier Shelf Expiration Date Model / Serial / Lot [employer] Simplex P Radiopaque Full Dose Cement Bone Sterile 6191-1-010 - [id number] Implanted:Qty: 2 on 05/04/2023 by Michael Motta MD at [facility] Bone Cement Left: Knee [employer] 05/03/2025 6191-1-010 / [id number] / [id number] [employer] Simplex P Radiopaque Full Dose Cement Bone Sterile 6191-1-010 - [id number] Implanted:Qty: 2 on 05/30/2024 by Michael Motta MD at [facility] Bone Cement Right: Patella [employer] [id number] 05/03/2026 6191- / / [id number] [employer] Persona 14mm 30+ Mm Knee Tibia Taper Extension Stem [id number] - [id number] 4 - [id number] Implanted:Qty: 1 on 05/04/2023 by Michael Motta MD at [facility] Left: Knee [employer] [id number] 02/15/2033 [id number] / 92-4737-730- 14 / [id number] [employer] Persona Cemented Cruciate Retaining Knee Left 7 Narrow Component [id number] - M61-5719-161-8 1 - [id number] Implanted:Qty: 1 on 05/04/2023 by Michael Motta MD at [facility] Left: Knee [employer] [id number] 10/25/2032 [id number] / 50-4850-596- 01 / [id number] [employer] Baseplate Tibial Knee Cemented Left Fixed Stemmed Persona Size D Tivanium [id number] - [id number] 1 - [id number] Implanted:Qty: 1 on 05/04/2023 by Michael Motta MD at [facility] Left: Knee [employer] [id number] 09/11/2032 [id number] / 04-1227-396- 01 / [id number] [employer] Persona 11mm Knee Left 6-7 C-D Insert Articular Vivacit-E Sterile [id number] - P78-9002-925-0 1 - [id number] Implanted:Qty: 1 on 05/04/2023 by Michael Motta MD at [facility] Left: Knee [employer] [id number] 12/28/2025 [id number] / 22-0551-243- 11 / [id number] [employer] Persona 32mm Knee Component Patellar All Poly Latex Free 40-1175-729-32 - [id number] Implanted:Qty: 1 on 05/04/2023 by Michael Motta MD at [facility] [employer] 12/19/2027 [id number] / / [id number] [employer] Baseplate Tibial Knee Cemented Right Fixed Stemmed Persona Size C Tivanium [id number] - [id number] Implanted:Qty: 1 on 05/30/2024 by Michael Motta MD at [facility] Right: Knee [employer] [id number] 03/22/2033 [id number] / / [id number] [employer] Persona 29mm Knee Component Patellar All Poly Latex Free [id number] - [id number] Implanted:Qty: 1 on 05/30/2024 by Michael Motta MD at [facility] Right: Knee [employer] [id number] 12/18/2028 [id number] / / [id number] [employer] Persona 13mm Cruciate Retain Knee Right 6-7 Cd Insert Articular Latex Free [id number] - [id number] Implanted:Qty: 1 on 05/30/2024 by Michael Motta MD at [facility] Right: Patella [employer] [id number] 05/04/2025 [id number] / / [id number] [employer] Persona Cruciate Retaining Cemented Knee Right 7 Narrow Component [id number] - [id number] Implanted:Qty: 1 on 05/30/2024 by Michael Motta MD at [facility] Right: Knee [employer] [id number] 12/27/2033 [id number] / / [id number] [employer] Persona 14mm 30+ Mm Knee Tibia Taper Extension Stem [id number] - [id number] Implanted:Qty: 1 on 05/30/2024 by Michael Motta MD at [facility] Right: Knee [employer] [id number] 04/11/2034 [id number] / / [id number] Procedures Procedure Name Priority Date/Time Associated Diagnosis Comments POC INFLUENZA A/B, COVID-19 ANTIGEN Routine 09/25/2024 11:02 AM CDT Influenza A Acute cough XR KNEE RIGHT 3 VIEWS Schedule Routine, Read Routine (OP Routine) 09/13/2024 1:48 PM CDT Chronic pain of right knee CT ABDOMEN PELVIS W CONTRAST Schedule Routine, Read Routine (OP Routine) 08/29/2024 12:23 PM POWER SHOVEL ENGINEER COMPREHENSIVE METABOLIC PANEL Routine 08/23/2024 2:11 PM POWER SHOVEL ENGINEER Encounter for medication monitoring CBC WITH AUTO DIFFERENTIAL Routine 08/23/2024 2:11 PM POWER SHOVEL ENGINEER Encounter for medication monitoring SCAN - LABS 08/23/2024 VITAMIN B12 Routine 08/02/2024 7:41 AM POWER SHOVEL ENGINEER Fatigue, unspecified type LIPID PANEL Routine 08/02/2024 7:41 AM POWER SHOVEL ENGINEER Mixed hyperlipidemia HEMOGLOBIN A1C Routine 08/02/2024 7:41 AM POWER SHOVEL ENGINEER Pre-diabetes COMPREHENSIVE METABOLIC PANEL Routine 08/02/2024 7:41 AM POWER SHOVEL ENGINEER Mixed hyperlipidemia CBC WITH AUTO DIFFERENTIAL Routine 08/02/2024 7:41 AM POWER SHOVEL ENGINEER Fatigue, unspecified type TSH Routine 08/02/2024 7:41 AM POWER SHOVEL ENGINEER Fatigue, unspecified type ERYTHROCYTE SEDIMENTATION RATE Routine 07/30/2024 2:36 PM POWER SHOVEL ENGINEER 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) CRP (ACUTE PHASE) Routine 07/30/2024 2:3 6 PM POWER SHOVEL ENGINEER 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) COMPREHENSIVE METABOLIC PANEL Routine 07/30/2024 2:36 PM POWER SHOVEL ENGINEER Encounter for medication monitoring CBC WITH AUTO DIFFERENTIAL Routine 07/30/2024 2:36 PM POWER SHOVEL ENGINEER Encounter for medication monitoring XR KNEE RIGHT 3 VIEWS Schedule Routine, Read Routine (OP Routine) 07/24/2024 1:35 PM POWER SHOVEL ENGINEER Status post total knee replacement using cement, right SCREENING MAMMOGRAM BILATERAL W DYLLAN Schedule Routine, Read Routine (OP Routine) 08/02/2023 7:33 AM POWER SHOVEL ENGINEER Breast cancer screening by mammogram DEXA AXIAL SKELETON BONE DENSITY 1 OR MORE SITES Schedule Routine, Read Routine (OP Routine) 04/12/2023 8:14 AM CDT COLONOSCOPY Routine 07/27/2021 HEPATITIS C ANTIBODY Routine 06/04/2020 10:29 AM POWER SHOVEL ENGINEER Encounter for screening for other viral diseases Chronic fatigue from Last 3 Months or Most Recently Relevant to Health Maintenance Results * (ABNORMAL) POC Influenza A/B, COVID-19 antigen (09/25/2024 11:02 AM CDT) Influenza A Ag, POC Positive(A) Negative [facility] CC EDW Influenza B Ag, POC Negative Negative [facility] EDW COVID-19 Ag POC Presumptive Negative Presumptive Negative, Invalid [facility] EDW Nasal 09/25/2024 11:0 2 AM CDT Jessica Collins NP POINT OF CARE TEST ORDERABLES Final Result [facility] CC EDW [address] * XR Knee Right 3 Views [...] John Sparrow M.D. RB T: Report ID: [id number] Reading Location: [id number] Procedure Note John Sparrow MD - 09/18/2024 [...] John Sparrow M.D. RB T: Report ID: [id number] Reading Location: [id number] Michael Motta MD IMG XR PROCEDURES Final Re sult * (ABNORMAL) CT Abdomen Pelvis W Contrast (08/29/2024 12:23 PM POWER SHOVEL ENGINEER) Anatomical Region Laterality Modality Body N/A Computed Tomogra phy us Historical Provider MD LUNSF[facility] CT PROCEDURES Edited Result - Final * CBC with auto differential (08/23/2024 2:11 PM POWER SHOVEL ENGINEER) WBC 4.8 3.8 - 10.8 Thousand/u L [...] [facility] Blood 08/23/2024 2:11 PM POWER SHOVEL ENGINEER 08/23/2024 2:11 PM POWER SHOVEL ENGINEER Sangita OSMAN LAB BLOOD ORDERABLES Vy suazo Result [facility] [address] [address] [address] * (ABNORMAL) Comprehensive metabolic panel (08/23/2024 2:11 PM POWER SHOVEL ENGINEER) Pathologist [facility] Glucose 188(H) 65 - 99 mg/dL [facility] [...] [facility] Blood 08/23/2024 2:11 PM POWER SHOVEL ENGINEER 08/23/2024 2:11 PM POWER SHOVEL ENGINEER us Sangita OSMAN LAB BLOOD ORDERABLES Vy l Result [facility] [address] [address] [place] [address] * SCAN - LABS (08/23/2024) Alee OSMAN Final Resu lt * (ABNORMAL) CBC with auto differential (08/02/2024 7:41 AM POWER SHOVEL ENGINEER) Pathologist [facility] WBC 4.0 3.8 - 10.8 Thousand/u L [...] [facility] Blood 08/02/2024 7:41 AM POWER SHOVEL ENGINEER 08/02/2024 7:42 AM POWER SHOVEL ENGINEER Alee OSMAN LAB BLOOD ORDERABLES Final Result Performing Organization Address [facility]/ZIP Co de Phone Number [facility] [address] [place] [address] * TSH (08/02/2024 7:41 AM POWER SHOVEL ENGINEER) TSH 1.57 0.40 - 4.50 mIU/L [facility] Blood 08/02/2024 7:41 AM POWER SHOVEL ENGINEER 08/02/2024 7:42 AM POWER SHOVEL ENGINEER Alee OSMAN LAB BLOOD ORDERABLES Final Result Performing Organization Address [facility] de Phone Number [facility] [address] [place] [address] * Hemoglobin A1c (08/02/2024 7:41 AM POWER SHOVEL ENGINEER) Hgb A1C 5.4 <5.7 % of total Hgb [facility] Comment: For the purpose of screening for the presence of diabetes: <5.7% Consistent with the absence of diabetes 5.7-6.4% Consistent with increased risk for diabetes (prediabetes) > or =6.5% Consistent with diabetes This assay result is consistent with a decreased risk of diabetes. Currently, no consensus exists regarding use of hemoglobin A1c for diagnosis of diabetes in children. According to [place] Diabetes Association (ADA) guidelines, hemoglobin A1c <7.0% represents optimal control in non- diabetic patients. Different metrics may apply to specific patient populations. Standards of Medical Care in Diabetes(ADA). Blood 08/02/2024 7:41 AM POWER SHOVEL ENGINEER 08/02/2024 7:42 AM POWER SHOVEL ENGINEER Alee OSMAN LAB BLOOD ORDERABLES Final Result Performing Organization Address [facility]/ZIP Co de Phone Number Material [facility] [address] [place] [address] * Vitamin B12 (08/02/2024 7:41 AM POWER SHOVEL ENGINEER) Vitamin B12 349 200 - 1,100 pg/mL [...] will have symptoms. Blood 08/02/2024 7:41 AM POWER SHOVEL ENGINEER 08/02/2024 7:42 AM POWER SHOVEL ENGINEER Alee OSMAN LAB BLOOD ORDERABLES Final Result Performing Organization Address [facility] Co de Phone Number [facility] [address] [place] [address] * Lipid panel (08/02/2024 7:41 AM POWER SHOVEL ENGINEER) Cholesterol 127 <200 mg/dL [facility] [...] LDL-C. Barry SS et al. ELAINE. 2013;310(19): 0612-3890 (http://education.AV Homes.Petenko/faq/LWF481) Chol/HDL ratio 1.7 <5.0 (calc) [facility] Non-HDL, (LDL+VLDL) 52 <130 mg/dL (calc) [facility] Comment: For patients with diabetes plus 1 major ASCVD risk factor, treating to a non-HDL-C goal of <100 mg/dL (LDL-C of <70 mg/dL) is considered a therapeutic option. Blood 08/02/2024 7:41 AM POWER SHOVEL ENGINEER 08/02/2024 7:42 AM POWER SHOVEL ENGINEER Alee OSMAN LAB BLOOD ORDERABLES Final Result [facility] [address] [place] [address] * Comprehensive metabolic panel (08/02/2024 7:41 AM POWER SHOVEL ENGINEER) Pathologist [facility] Glucose 99 65 - [...] [facility] Blood 08/02/2024 7:41 AM POWER SHOVEL ENGINEER 08/02/2024 7:42 AM POWER SHOVEL ENGINEER us Alee OSMAN LAB BLOOD ORDERABLES Final Result [facility] [address] [place] [address] * CBC with auto differential (07/30/2024 2:36 PM POWER SHOVEL ENGINEER) WBC 6.4 3.8 - 10.8 Thousand/u L [...] [facility] Blood 07/30/2024 2:3 6 PM POWER SHOVEL ENGINEER 07/30/2024 2:36 PM POWER SHOVEL ENGINEER [facility] LAB BLOOD ORDERABLES Vy l Result Performing Organization Address [facility] de Phone Number [facility] [address] [place] [address] * Erythrocyte sedimentation rate (07/30/2024 2:36 PM POWER SHOVEL ENGINEER) Erythrocyte sedimentation rate 11 < OR = 30 mm/h [facility] Blood 07/30/2024 2:36 PM POWER SHOVEL ENGINEER 07/30/2024 2:36 PM POWER SHOVEL ENGINEER Result [facility] Magali Farrar DE LAB BLOOD ORDERABLES Vy l Result Performing Organization Address [facility] de Phone Number [facility] [address] [place] [address] * CRP (acute phase) (07/30/2024 2:36 PM POWER SHOVEL ENGINEER) C-RP <3.0 <8.0 mg/L [facility] Blood 07/30/2024 2:36 PM POWER SHOVEL ENGINEER 07/30/2024 2:36 PM POWER SHOVEL ENGINEER Sangita OSMAN LAB BLOOD ORDERABLES Vy suazo Result [facility] [address] [address] [place] [address] * (ABNORMAL) Comprehensive metabolic panel (07/30/2024 2:36 PM POWER SHOVEL ENGINEER) Glucose 115(H) 65 - 99 mg/dL [facility] [...] [facility] Blood 07/30/2024 2:36 PM POWER SHOVEL ENGINEER 07/30/2024 2:36 PM POWER SHOVEL ENGINEER us Sangita OSMAN LAB BLOOD ORDERABLES Vy suazo Result [facility] [address] [address] [address] * XR Knee Right 3 Views (07/24/2024 1:35 PM POWER SHOVEL ENGINEER) Anatomical Region Laterality Modality Lower Extremities, Knee Right Computed Radiography 07/25/2024 7:16 AM POWER SHOVEL ENGINEER Narrative 07/25/2024 7:18 AM POWER SHOVEL ENGINEER EXAM DESCRIPTION: XR KNEE RIGHT 3 VIEWS [...] signed by Elton CABA T: Report ID: [id number] Reading Location: [place] [address] Procedure Note Elton Jonas MD - 07/25/2024 [...] signed by Elton CABA T: Report ID: [id number] Reading Location: [id number] Michael Motta MD IMG XR PROCEDURES Final Re sult * Screening Mammogram Bilateral W Dyllan (08/02/2023 7:33 AM POWER SHOVEL ENGINEER) Anatomical Region Laterality Modality Breast Bilateral Mammography [...] * Hepatitis C antibody (06/04/2020 10:29 AM POWER SHOVEL ENGINEER) Hep C Ab NON-REACTI VE NON-REACT ALEXYS [facility] SIGNAL TO CUT-OFF 0.02 <1.00 [facility] Comment: HCV antibody was non-reactive. There is no laboratory evidence of HCV infection. In most cases, no further action is required. However, if recent HCV exposure is suspected, a test for HCV RNA (test code 71414) is suggested. For additional information please refer to http://education.Rapid Vocabulary/faq/PPE76e7 (This link is being provided for informational/ educational purposes only.) Blood specimen (specimen) 06/04/2020 10:29 AM POWER SHOVEL ENGINEER 06/04/2020 10:30 AM POWER SHOVEL ENGINEER Sangita OSMAN LAB MICROBIOLOGY - GENERA L ORDERABLES Final Result Material [facility] [address] [place] [address] from Last 3 Months or Most Recently Relevant to Health Maintenance Insurance [facility] HE[facility]ARE [facility] HEALTHCARE [facility] MEDICARE [facility] Address: [address] [address] [place] [address] Advance Directives For more information, please contact: [phone] Documents on File Type Date Recorded Patient Cardiovascular Technician Expl anation ADVANCE DIRECTIVE 05/17/2024 2:13 PM Yonis r of [employer] * Full Code (Latest Code Status on File) Date Activated Date Inactivated Comments 05/30/2024 12:38 PM 06/05/2024 6:31 PM * Full Code Date Activated Date Inactivated Comments 05/04/2023 2:33 PM 05/07/2023 3:07 AM * Full Code Date Activated Date Inactivated Comments 03/22/2021 4:39 PM 03/25/2021 6:17 PM Care Teams Technical Applications Scientist Relationship Specialty Start Date End Date Alee Elizondo PA [address] [facility] [address] [place] [address] PCP - General Internal Medicine 07/05/23 Sharan Linton MD Referring Physician Gastroenterology 10/31/18 Martha Starks MD Consulting Physician Cardiology 12/24/20 Shama Hines MD [address] [facility] [address] [place] [address] Consulting Physician Pain Management 01/19/21 Artis Grewal MD [address] [place] [address] Consulting Physician Rheumatology 01/30/21 Amy Mayes NP [address] [facility] [address] [place] [address] Nurse Practitioner Cardiovascular Disease 04/20/24 Shailesh Dunn MD [address] [facility] [address] [address] Consulting Physician Pulmonary Disease 04/20/24 Sangita Farrar PA [address] [place] [address] Physician Child Care Assistant Rheumatology 05/15/24
--- OUTSIDE RECORDS SUMMARY | 2024-10-02 14:36 | XMS_ITS | Encounter Summary ---
Author Organization [facility] Facility Care Team Providers Care Academic Tutor Name Role Phone Alee Elizondo Primary Care Provider + [phone] Sharan Linton MD Unavailable [phone] Taisha Gomez MD Unavailable [phone] Parag Soto MD Unavailable [phone] RaziaMartha singh MD Unavailable [phone] Puneet Uribe MD Unavailable [phone] Shama Hines MD Unavailable Artis Grewal MD Unavailable [phone] Harrison Pena RN Unavailable [phone] Nafisa Gregg RN Unavailable [phone] Tho Kelsey MD Primary Care Provider [phone] Alee Elizondo Primary Care Provider + [phone] Amy Mayes NP Unavailable [phone] Shailesh Dunn MD Unavailable [phone] Sangita Farrar Unavailable [phone] Encounter Details Date Type Department Care Team (Latest Contact Info) Description 06/28/2016 Orders Only [facility] CLINCONV Provider, MD Tania [address] [place] [address] Social History Tobacco Use Types Packs/Day Years Used Date Smoking Tobacco: Never Alcohol Use Standard Drinks/Week Comments No 0 (1 standard drink = 0.6 oz pur e alcohol) Comments Unknown Sex and Gender Information Value Date Recorded Sex Assigned at Not on file Legal Sex Female 8:04 PM PUBLIC HEALTH STAFF NURSE Gender Identity Female 02/15/2020 6:08 PM CDT Sexual Orientation Not on file documented as of this encounter Plan of Treatment Not on file documented as of this encounter Procedures Procedure Name Priority Date/Time Associated Diagnosis Comments SCAN - LABS 06/29/2016 12:00 AM PUBLIC HEALTH STAFF NURSE documented in this encounter Results * SCAN - LABS (06/29/2016 12:00 AM PUBLIC HEALTH STAFF NURSE) Narrative 06/29/2016 12:00 AM PUBLIC HEALTH STAFF NURSE Ordered by an unspecified provider. us Historical Provider MD Final Res ult documented in this encounter Visit Diagnoses Not on filedocumented in this encounter Additional Health Concerns Infection Onset Date Last Indicated Resolved Time COVID: Suspected 08/13/2021 08/14/2021 08/14/2021 3:06 AM PUBLIC HEALTH STAFF NURSE COVID: Suspected 08/14/2021 08/14/2021 08/15/2021 3:05 AM PUBLIC HEALTH STAFF NURSE COVID: Suspected 08/14/2021 08/14/2021 08/15/2021 6:25 AM PUBLIC HEALTH STAFF NURSE COVID: Suspected 06/02/2023 06/02/2023 06/02/2023 7:25 PM PUBLIC HEALTH STAFF NURSE COVID: Suspected 07/26/2023 07/26/2023 07/26/2023 3:10 PM PUBLIC HEALTH STAFF NURSE COVID: Suspected 09/25/2024 09/25/2024 09/25/2024 11:03 AM CDT Influenza, adult 09/25/2024 09/25/2024 10/02/2024 3:05 AM CDT documented as of this encounter Care Teams Academic Tutor Relationship Specialty Start Date End Date Alee Elizondo PA [address] [facility] [address] [place] [address] PCP - General Internal Medicine 02/01/17 06/29/23 Tho Kelsey MD [address] [facility] [address] [facility] [address] [place] [address] PCP - General Family Medicine 06/30/23 07/04/23 Alee Elizondo PA [address] [place] [address] [place] [address] PCP - General Internal Medicine 07/05/23 Sharan Linton MD [address] [place] [address] [place] [address] Referring Physician Gastroenterology 10/31/18 Taisha Gomez MD [address] [place] [address] [place] [address] Referring Physician Pulmonary Disease 10/31/18 12/23/20 Parag Soto MD [address] [place] [address] [place] [address] Referring Physician Rheumatology 10/31/18 12/23/20 Martha Starks MD [address] [place] [address] [place] [address] Consulting Physician Cardiology 12/24/20 Puneet Uribe MD [address] [facility] [address] [place] [address] Consulting Physician Rheumatology 12/24/20 01/29/21 Shama Hines MD [address] [facility] [address] [place] [address] Consulting Physician Pain Management 01/19/21 Artis Grewal MD [address] [place] [address] Consulting Physician Rheumatology 01/30/21 Harrison Pena, JULIUS [address] [place] [address] Electoral Officer 05/30/23 09/04/23 Nafisa Gregg, JULIUS [address] [place] [address] [address] [place] [address] Electoral Officer 06/06/23 06/12/23 Amy Mayes NP [address] [facility] [address] [address] Nurse Practitioner Cardiovascular Disease 04/20/24 Shailesh Dunn MD [address] [facility] [address] [place] [address] Consulting Physician Pulmonary Disease 04/20/24 Sangita Farrar PA [address] [place] [address] Physician Rn Med Surg Rheumatology 05/15/24 documented as of this encounter
--- OUTSIDE RECORDS SUMMARY | 2024-10-02 14:36 | XMS_ITS | Encounter Summary ---
Author Organization [facility] Facility Care Team Providers Care Tobacco Prizer Name Role Phone Alee Elizondo Primary Care Provider + [phone] Sharan Linton MD Unavailable [phone] Taisha Gomez MD Unavailable [phone] Parag Soto MD Unavailable [phone] [facility] Unavailable [phone] Puneet Uribe MD Unavailable [phone] Shama Hines MD Unavailable Artis Grewal MD Unavailable [phone] Harrison Pena RN Unavailable [phone] Nafisa Grgeg RN Unavailable [phone] hTo Kelsey MD Primary Care Provider [phone] Alee Elizondo Primary Care Provider + [phone] Amy Mayes NP Unavailable [phone] Shailesh Dunn MD Unavailable [phone] Sangita Farrar Unavailable [phone] Encounter Details Date Type Department Care Team (Latest Contact Info) Description 09/14/2016 Orders Only [facility] CLINCONV Provider, MD Tania [address] [place] [id number] Social History Tobacco Use Types Packs/Day Years Used Date Smoking Tobacco: Never Alcohol Use Standard Drinks/Week Comments No 0 (1 standard drink = 0.6 oz pur e alcohol) Comments Unknown Sex and Gender Information Value Date Recorded Sex Assigned at Not on file Legal Sex Female 8:04 PM SEWER CONTRACTOR Gender Identity Female 02/15/2020 6:08 PM CDT Sexual Orientation Not on file documented as of this encounter Plan of Treatment Not on file documented as of this encounter Procedures Procedure Name Priority Date/Time Associated Diagnosis Comments PROCEDURE - RESULT 09/09/2016 12 :00 AM SEWER CONTRACTOR documented in this encounter Results * PROCEDURE - RESULT (09/09/2016 12:00 AM SEWER CONTRACTOR) Narrative 09/09/2016 12:00 AM SEWER CONTRACTOR Ordered by an unspecified provider. Historical Provider MD Final Res ult documented in this encounter Visit Diagnoses Not on filedocumented in this encounter Additional Health Concerns Infection Onset Date Last Indicated Resolved Time COVID: Suspected 08/13/2021 08/14/2021 08/14/2021 3:06 AM SEWER CONTRACTOR COVID: Suspected 08/14/2021 08/14/2021 08/15/2021 3:05 AM SEWER CONTRACTOR COVID: Suspected 08/14/2021 08/14/2021 08/15/2021 6:25 AM SEWER CONTRACTOR COVID: Suspected 06/02/2023 06/02/2023 06/02/2023 7:25 PM SEWER CONTRACTOR COVID: Suspected 07/26/2023 07/26/2023 07/26/2023 3:10 PM SEWER CONTRACTOR COVID: Suspected 09/25/2024 09/25/2024 09/25/2024 11:03 AM CDT Influenza, adult 09/25/2024 09/25/2024 10/02/2024 3:05 AM CDT documented as of this encounter Care Teams Tobacco Prizer Relationship Specialty Start Date End Date Alee Elizondo PA [address] [facility] [address] [place] [address] PCP - General Internal Medicine 02/01/17 06/29/23 Tho Kelsey MD [address] [facility] [address] [facility] [address] [place] [address] PCP - General Family Medicine 06/30/23 07/04/23 Alee Elizondo PA [address] [place] [address] [place] [address] PCP - General Internal Medicine 07/05/23 Sharan Linton MD [address] [place] [address] [place] [address] Referring Physician Gastroenterology 10/31/18 Taisha Gomez MD [address] [place] [address] [place] [address] Referring Physician Pulmonary Disease 10/31/18 12/23/20 Parag Soto MD [address] [place] [address] [place] [address] Referring Physician Rheumatology 10/31/18 12/23/20 Martha Starks MD [address] [place] [address] [place] [address] Consulting Physician Cardiology 12/24/20 Puneet Uribe MD [address] [facility] [address] [place] [address] Consulting Physician Rheumatology 12/24/20 01/29/21 Shama Hines MD [address] [facility], [facility] [address] [place] [address] Consulting Physician Pain Management 01/19/21 Artis Grewal MD [address] [place] [address] Consulting Physician Rheumatology 01/30/21 Harrison Pena, JULIUS [address] [place] [address] Biological Sciences Instructor 05/30/23 09/04/23 Nafisa Gregg, JULIUS [address] [place] [address] [address] [place] [address] Biological Sciences Instructor 06/06/23 06/12/23 Amy Mayes NP [address] [facility] [address] [address] Nurse Practitioner Cardiovascular Disease 04/20/24 Shailesh Dunn MD [address] [facility] [address] [place] [address] Consulting Physician Pulmonary Disease 04/20/24 Sangita Farrar PA [address] [place] [address] Physician General Matcher Rheumatology 05/15/24 documented as of this encounter
--- OUTSIDE RECORDS SUMMARY | 2024-10-02 14:36 | XMS_ITS | Encounter Summary ---
Author Organization [facility] Healthcare Address [address] [place] [address] Care Team Providers Care Detective Youth Bureau Name Role Phone Sharan Linton MD Unavailable [phone] Martha Starks MD Unavailable [phone] Shama Hines MD Unavailable Artis Grewal MD Unavailable [phone] Alee Elizondo Primary Care Provider [phone] Amy Mayes NP Unavailable [phone] Shailesh Dunn MD Unavailable [phone] Sangita Farrar Unavailable [phone] Encounter Details Date Type Department Care Team (Late st Contact Info) Description 03/02/2024 Telephone [facility] Family Medicine [address] [facility] [address] [place] [address] Alee Elizondo PA [address] [facility] [address] [place] [address] [place] [address] Social History Tobacco Use Types Packs/Day Years Used Date Smoking Tobacco: Never Smokeless Tobacco: Never Comments:Never used Alcohol Use Standard Drinks/Week Comments No 0 (1 standard drink = 0.6 oz pur e alcohol) [facility] Utilities Answer Date Recorded In the past 12 months has [employer], gas, oil, or water company threatened [...] often do you attend chur ch or protestant services? More than 4 times per year 05/27/2023 Do you belong to any clubs o r organizations such as pentecostalism groups, unions, fraternal or athletic groups, or [...] on file Legal Sex Female 8:04 PM DISTRICT ENGINEER Gender Identity Female 02/15/2020 6:08 PM [...] documented as of this encounter Care Teams Detective Youth Bureau Relationship Specialty Start Date End Date Alee Elizondo PA [address] [facility] [address] [place] [address] PCP - General Internal Medicine 07/05/23 Sharan Linton MD Referring Physician Gastroenterology 10/31/18 Martha Starks MD Consulting Physician Cardiology 12/24/20 Shama Hines MD [address] [address] Consulting Physician Pain Management 01/19/21 Artis Grewal MD [address] [place] [address] Consulting Physician Rheumatology 01/30/21 Amy Mayes NP [address] [address] Nurse Practitioner Cardiovascular Disease 04/20/24 Shailesh Dunn MD [address] [address] Consulting Physician Pulmonary Disease 04/20/24 Sangita Farrar PA [address] [place] [address] Physician Alarm Field Technician Rheumatology 05/15/24 documented as of this encounter
--- NOTE | 2024-10-02 14:59 | PC.NURSE ---
patient complaining of lower abdominal pain states it feels like the catheter is not draining all the way. patient has suprapubic tenderness. bladderscan preformed, 17mls noted on the scan. agosto drained 600ml of urine
--- NOTE | 2024-10-02 15:57 | PC.NURSE ---
Multiple RNs attempted to obtain vascular access with no success.
[2024-10-02 16:40] LABS: Basophils Percent Auto 0.4 % (0.2-1.2); Eosinophils Absolute Auto 0.1 K/mm3 (0-0.3); Eosinophils Percent Auto 2.6 % (0-4.4); Hematocrit 40.1 % (37.0-47.0); Hemoglobin 13.1 g/dL (12.0-15.0); Immature Granulocyte Absolute 0.01 K/mm3 (0.00-0.031); Immature Granulocyte Percent A 0.2 % (0-0.5); Lymphocytes Percent Auto 21.6 % (18.3-44.2); Mean Corpuscular HGB Conc 32.7 g/dl (32-36); Mean Corpuscular Hemoglobin 31.6 pg (26-34); Mean Corpuscular Volume 96.6 fl (80-100); Mean Platelet Volume 9.9 fl (7.4-10.4); Monocytes Absolute Auto 0.4 K/mm3 (0.1-0.6); Monocytes Percent Auto 8.4 % (2.6-8.5); Neutrophils Absolute Auto 3.4 K/mm3 (1.3-6.7); Neutrophils Percent Auto 66.8 % (45.5-73.1); Platelet Count Result 191 k/mm3 (150-375); Red Blood Count 4.15 M/mm3 (4.2-5.4); Red Cell Distribution Width 15.9 % (11.5-14.5); White Blood Count 5.1 K/mm3 (4.5-10.0)
[2024-10-02 16:53] LABS: Alanine Aminotransferase 24 U/L (6-35); Albumin Level 3.8 g/dL (3.5-5.1); Alkaline Phosphatase 115 U/L (38-126); Anion Gap 9 mmol/L (4-12); Aspartate Amino Transferase 37 U/L (14-36); Bilirubin,Total 0.5 mg/dL (0.2-1.3); Blood Urea Nitrogen 15 mg/dL (7-17); Calcium 9.1 mg/dL (8.4-10.2); Carbon Dioxide 25 mmol/L (22-30); Chloride 108 mmol/L (98-107); Estimated CRCL calculation 77 ml/min; Estimated Glomerular Filt Rate > 60; Glucose 86 mg/dL (65-110); Potassium 4.1 mmol/L (3.4-5.0); Sodium 142 mmol/L (137-145)
--- NOTE | 2024-10-02 17:15 | PC.NURSE ---
Pt. to CT.
[2024-10-02 18:14] VITALS: BP 131/64; PULSE 70; RESP 16; O2SAT 96
--- NOTE | 2024-10-02 19:10 | ED_ITS ---
HPI - General Adult General Chief complaint: Urogenital-Female Stated complaint: unable to urinate since this AM Time Seen by Provider: 10/02/24 13:25 History of Present Illness HPI narrative: Patient is a 69-year-old female who presents ER with lower abdominal pain and difficulty urinating. History of urinary retention and had a Lyles in for weak. She is supposed to follow-up with urology in 3 weeks. Was able urinate this morning but has not been able to use the bathroom since then. No fevers or chills. Mild discomfort with urination. Related Data Home Medications ?Medication ?Instructions ?Recorded ?Confirmed ?Last Taken ?Type aspirin 81 mg tablet,delayed 81 mg PO DAILY 06/20/19 02/29/24 12/11/23 History release (Adult Low Dose Aspirin) bupropion HCl 150 mg 24 hr tablet, 150 mg PO QAM 06/20/19 02/29/24 12/14/23 History extended release hydroxychloroquine 200 mg tablet 200 mg PO BID 06/20/19 02/29/24 12/13/23 20:00 History montelukast 10 mg tablet 10 mg PO QHS 06/20/19 02/29/24 12/08/23 History potassium chloride 10 mEq 10 meq PO DAILY 06/20/19 02/29/24 12/13/23 History tablet,extended release pravastatin 40 mg tablet 40 mg PO DAILY 06/20/19 02/29/24 12/13/23 20:00 History folic acid 1 mg tablet 2 mg PO DAILY 06/21/19 02/29/24 12/13/23 History duloxetine 60 mg capsule,delayed 60 mg PO DAILY 08/20/19 02/29/24 12/14/23 History release calcium carb-ergocalciferol (vit 1 tablet PO BID 03/08/21 02/29/24 12/08/23 History D2) 600 mg calcium-200 unit tablet cholecalciferol (vitamin D3) 125 125 mcg PO DAILY 03/08/21 02/29/24 12/08/23 History mcg (5,000 unit) tablet (Vitamin D3) cyclobenzaprine 5 mg tablet 5 mg PO TID PRN Muscle spasms 03/08/21 02/29/24 12/08/23 History docusate sodium 100 mg capsule 200 mg PO BID 09/11/2102/29/24 12/08/23 History (Colace) ropinirole 0.5 mg tablet 1 mg PO HS 07/14/21 02/29/24 12/13/23 20:00 History abatacept 125 mg/mL subcutaneous 125 mg subcut WEEKLY 07/22/23 02/29/24 Unknown History syringe (Orencia) bumetanide 1 mg tablet 1 mg PO BID 07/22/23 02/29/24 12/13/23 History clobetasol 0.05 % lotion (Clobex) 1 applic topical BID PRN Itching 07/22/23 02/29/24 12/03/23 History gabapentin 100 mg capsule 200 mg PO BID 07/22/23 02/29/24 12/13/23 20:00 History tramadol 50 mg tablet 50 mg PO Q6H PRN Pain 07/22/23 02/29/24 12/08/23 History methotrexate sodium 2.5 mg tablet 17.5 mg PO WEEKLY 12/05/23 02/29/24 12/07/23 History cetirizine 10 mg capsule (Zyrtec) 10 mg PO DAILY PRN 09/18/24 Unknown History oxycodone-acetaminophen 5 mg-325 1 tablet PO Q6H PRN 09/18/24 Unknown History mg tablet rosuvastatin 10 mg tablet 10 mg PO 09/18/24 Unknown History Allergies Allergy/AdvReac Type Severity Reaction Status Date / Time meperidine Allergy Severe HIVES Verified 09/18/24 09:23 Penicillins Allergy Severe RASH Verified 09/18/24 09:23 hydrocodone Allergy Intermediate HIVES Verified 09/18/24 09:23 Review of Systems 2 Review of Systems: All systems reviewed & are unremarkable except as noted in HPI and below Constitutional: Constitutional: Reports no additional constitutional complaints Cardiovascular: Cardiovascular: Reports no additional cardiovascular complaints Respiratory: Respiratory: Reports no additional respiratory complaints Gastrointestinal: Gastrointestinal: Reports no additional gastrointestinal complaints Genitourinary: Genitourinary: Reports no additional female genitourinary complaints [facility] Past Medical History Medical History Obese Arthritis OWEN (obstructive sleep apnea) GERD (gastroesophageal reflux disease) Kidney stones Depression Angina of effort Asthma Hyperlipidemia CAD (coronary atherosclerotic disease) H/O: HTN (hypertension) Moderate persistent asthma without complication Obstructive sleep apnea (adult) (pediatric) Rhinitis Surgical History Surgical History H/O dilation and curettage History of lithotripsy History of hysterectomy History of repair of hiatal hernia Laparoscopic repair hiatal hernia, laparoscopic Leonor fundoplication 12/14/23 History of left knee replacement History of cholecystectomy S/P appy Family History Family History Mother Chronic HF (heart failure) Family history of diabetes mellitus in first degree relative Cerebrovascular accident Father Family history of malignant neoplasm of kidney Family history of liver disease Carcinoma of colon Atrial fibrillation Other Acute myocardial infarction Asthma Diabetes mellitus Family history of arthritis Family history of cardiovascular disease Family history of chronic obstructive pulmonary disease Family history of congestive heart failure Hypertension Malignant neoplasm of prostate Social History Social History Smoking status: Never smoker Alcohol intake: never Substance use: never Substance use type: does not use Do You Feel Safe in your Home?: Yes Lack of Transportation: No Lack of Food: Never True Current Housing: I Have Housing Concerned About Future Housing: No Difficulty Paying Gas/Electric Bills: No Difficulty Paying for Meds: No Currently Unemployed: No Education: High School Diploma/GED Difficulty w/ Childcare or Family Care: No Living arrangements: alone Spiritual care concerns: No Exam 2 Narrative: GENERAL: Well-appearing, well-nourished, and in no acute distress. HEAD: Normocephalic, atraumatic. ENT: Mucous membranes moist. NECK: Supple. CHEST: Clear to auscultation. No respiratory distress. HEART: Regular rate and rhythm. Normal peripheral pulses. ABDOMEN: Soft, mild left lower quadrant tenderness without guarding, nondistended. EXTREMITIES: Normal range of motion. No edema. Congenital deformity left upper extremity. SKIN: Warm, dry, no rash. NEURO: Alert and oriented x3. PSYCH: Normal mood and affect. Course Course Emergency Course: Patient resting comfortably. Informed of results. Discussed case with Urology, no need to remove of the visit today but fully should be kept in. Vital Signs Vital signs: Vital Signs Temperature 97.2 F L 10/02/24 12:37 Pulse Rate 72 10/02/24 12:37 Respiratory Rate 16 10/02/24 12:37 Blood Pressure 143/51 H 10/02/24 12:37 Pulse Oximetry 97 10/02/24 12:37 Oxygen Delivery Room Air 10/02/24 12:37 Temperature 97.2 F L 10/02/24 12:37 Pulse Rate 70 10/02/24 18:14 Respiratory Rate 16 10/02/24 18:14 Blood Pressure 131/64 10/02/24 18:14 Pulse Oximetry 96 10/02/24 18:14 Oxygen Delivery Room Air 10/02/24 12:37 Medical Decision Making Vital Signs Vital Signs: Vital Signs Temperature 97.2 F L 10/02/24 12:37 Pulse Rate 72 10/02/24 12:37 Respiratory Rate 16 10/02/24 12:37 Blood Pressure 143/51 H 10/02/24 12:37 Pulse Oximetry 97 10/02/24 12:37 Oxygen Delivery Room Air 10/02/24 12:37 Temperature 97.2 F L 10/02/24 12:37 Pulse Rate 70 10/02/24 18:14 Respiratory Rate 16 10/02/24 18:14 Blood Pressure 131/64 10/02/24 18:14 Pulse Oximetry 96 10/02/24 18:14 Oxygen Delivery Room Air 10/02/24 12:37 Lab Data 10/02/24 16:34 10/02/24 16:34 Labs: Lab Results 10/02/24 10/02/24 Range/Units 14:15 16:34 WBC 5.1 (4.5-10.0) K/mm3 RBC 4.15 L (4.2-5.4) M/mm3 Hgb 13.1 (12.0-15.0) g/dL Hct 40.1 (37.0-47.0) % MCV 96.6 (80-100) fl MCH 31.6 (26-34) pg MCHC 32.7 (32-36) g/dl RDW 15.9 H (11.5-14.5) % Plt Count 191 (150-375) k/mm3 MPV 9.9 (7.4-10.4) fl Immature Gran % (Auto) 0.2 (0-0.5) % Neut % (Auto) 66.8 (45.5-73.1) % Lymph % (Auto) 21.6 (18.3-44.2) % Swain % (Auto) 8.4 (2.6-8.5) % Eos % (Auto) 2.6 (0-4.4) % Baso % (Auto) 0.4 (0.2-1.2) % Lymph # (Auto) 1.10 (0.9-3.2) K/mm3 Swain # (Auto) 0.4 (0.1-0.6) K/mm3 Eos # (Auto) 0.1 (0-0.3) K/mm3 Baso # (Auto) 0.0 (0.0-0.1) K/mm3 Abs Immat Gran (auto) 0.01 (0.00-0.031) K/mm3 Absolute Neuts (auto) 3.4 (1.3-6.7) K/mm3 Absolute Nucleated RBC 0.000 (0.0-0.012) K/mm3 Nucleated RBC % 0.0 (0.0-0.2) % Sodium 142 (137-145) mmol/L Potassium 4.1 (3.4-5.0) mmol/L Chloride 108 H (98-107) mmol/L Carbon Dioxide 25 (22-30) mmol/L Anion Gap 9 (4-12) mmol/L BUN 15 D (7-17) mg/dL Creatinine 0.62 L (0.7-1.0) mg/dL Estim Creat Clear Calc 77 ml/min Estimated GFR > 60 (59 - ) Glucose 86 (65-110) mg/dL Calcium 9.1 (8.4-10.2) mg/dL Total Bilirubin 0.5 (0.2-1.3) mg/dL AST 37 H (14-36) U/L ALT 24 (6-35) U/L Alkaline Phosphatase 115 (38-126) U/L Total Protein 7.0 (6.3-8.2) g/dL Albumin 3.8 (3.5-5.1) g/dL Urine Color Yellow (Yellow) Urine Appearance Clear (Clear) Urine pH 6.5 (5.0-9.0) Ur Specific Lyons 1.007 (1.001-1.035) Urine Protein Negative (Negative) mg/dL Urine Glucose (UA) Negative (Negative) mg/dL Urine Ketones Negative (Negative) mg/dL Ur Blood (Man) Negative (Negative) Urine Nitrate Negative (Negative) Urine Bilirubin Negative (Negative) Urine Urobilinogen 0.2 (<2.0) mg/dL Leukocyte Esterase Rfl Negative (Negative) JACQUELYN/UL Imaging Data Radiologist's impression: ITS Impressions Abdomen/Pelvis CT 10/02/24 17:26 IMPRESSION: Significant pelvic lipomatosis demonstrating mass effect on the patient's bladder and rectum likely the source of patient's urinary retention. Findings suggesting prior granulomatous disease. Discharge Plan Discharge Clinical Impression: Acute urinary retention, Pelvic lipomatosis Patient Disposition: Home, Self-Care Condition: Stable Instructions: Acute Urinary Retention in Women (ED) Additional Instructions: Follow-up with urology. Keep your Lyles catheter in until you can be seen. Return the ER if you develop or abdominal pain, you have fever over 100.4? F, or you have additional concerns. Patient Language: Azerbaijani Prescriptions: No Action duloxetine 60 mg capsule,delayed release(DR/EC) 60 mg PO DAILY pravastatin 40 mg tablet 40 mg PO DAILY potassium chloride 10 mEq tablet extended release 10 meq PO DAILY montelukast 10 mg tablet 10 mg PO QHS hydroxychloroquine 200 mg tablet 200 mg PO BID bupropion HCl 150 mg tablet extended release 24 hr 150 mg PO QAM aspirin [Adult Low Dose Aspirin] 81 mg tablet,delayed release (DR/EC) 81 mg PO DAILY folic acid 1 mg tablet 2 mg PO DAILY nystatin 100,000 unit/gram powder 1 applic topical BID Qty: 60 0RF Zyrtec 10 mg capsule 10 mg PO DAILY PRN oxycodone-acetaminophen 5-325 mg tablet 1 tablet PO Q6H PRN rosuvastatin 10 mg tablet 10 mg PO lidocaine 5 % adhesive patch,medicated 1 patch topical DAILY Qty: 15 0RF Rx Instructions: leave on most painful area for up to 12 hrs. do not use more than 1 patch in a 24-hour period. docusate sodium [Colace] 100 mg Capsule 200 mg PO BID calcium carbonate-vitamin D2 600 mg calcium- 200 unit Tablet 1 tablet PO BID cyclobenzaprine 5 mg Tablet 5 mg PO TID PRN (Reason: Muscle spasms) cholecalciferol (vitamin D3) [Vitamin D3] 125 mcg (5,000 unit) Tablet 125 mcg PO DAILY ropinirole 0.5 mg Tablet 1 mg PO HS bumetanide 1 mg tablet 1 mg PO BID gabapentin 100 mg capsule 200 mg PO BID Patient Comments: TAKES 400MG AT HS clobetasol [Clobex] 0.05 % Lotion 1 applic TOPICAL BID PRN (Reason: Itching) Rx Instructions: apply to scalp tramadol 50 mg tablet 50 mg PO Q6H PRN (Reason: Pain) Orencia 125 mg/mL Syringe 125 mg SUBCUT WEEKLY Patient Comments: Tuesday' methotrexate sodium 2.5 mg tablet 17.5 mg PO WEEKLY Patient Comments: TAKES ON WEDNESDAYS Linzess 290 mcg capsule See Rx Instructions .ROUTE .COMPLEX Qty: 30 11RF Dose Instruction: TAKE 1 CAPSULE BY MOUTH EVERY DAY Rx Instructions: TAKE 1 CAPSULE BY MOUTH EVERY DAY fluconazole 150 mg tablet 150 mg PO Q72H Qty: 2 0RF Rx Instructions: as a single dose Follow-up/Referrals: Otoniel Marcos MD [Physician] - 3 Weeks Mikhail,AJCQUI Vickers [Primary Care Provider] - 1 Week
[2024-10-02 19:25] VITALS: BP 125/63; PULSE 75; RESP 16; O2SAT 98
[2024-10-02 19:29] VITALS: BP 125/63; PULSE 75; RESP 16; O2SAT 98
== END 2024-10-02 19:31 | disposition home or self-care (01) ==
PROVIDERS: Emergency Provider Emergency Medicine; PCP Physician Assistant
DX: R33.9 Retention of urine, unspecified (principal); E88.2 Lipomatosis, not elsewhere classified; M19.90 Unspecified osteoarthritis, unspecified site; K21.9 Gastro-esophageal reflux disease without esophagitis; Z87.442 Personal history of urinary calculi; F32.A Depression, unspecified; J45.909 Unspecified asthma, uncomplicated; E78.5 Hyperlipidemia, unspecified; I25.10 Atherosclerotic heart disease of native coronary artery without angina pectoris; G47.30 Sleep apnea, unspecified
CPT/HCPCS: 36415; 74177; 80053; 81003; 85025; 99284; Q9967

== ENCOUNTER 2024-10-07 11:13 | Emergency (ER) | payer MEDICARE, SELFPAY ==
--- OUTSIDE RECORDS SUMMARY | 2024-10-07 11:16 | XMS_ITS | Clinical Summary ---
Author Organization [facility] [address] Address [address] [place] [address] Care Team Providers Care Rfid Systems Architect Name Role Phone Sharan Linton MD Unavailable [phone] Martha Starks MD Unavailable [phone] Shama Hines MD Unavailable Artis Grewal MD Unavailable [phone] Alee Elizondo Primary Care Provider [phone] Amy Mayes NP Unavailable [phone] Shailesh Dunn MD Unavailable [phone] Sangita Farrar Unavailable Allergies Active Allergy Reactions [...] total) by mouth nightly 180 tablet 2 Active fluticasone propionate (FLONASE) 50 mcg/actuation nasal [...] needed for cough 30 [address] (CYMBALTA) 60 mg capsuleIndication s:Moderate episode of recurrent major depressive disorder (HCC) TAKE 1 CAPSULE BY MOUTH EVERY DAY 90 capsule 2 024 2024 Discontinued gabapentin (NEURONTIN) 100 mg capsule TAKE 2 CAPSULES BY MOUTH TWICE A DAY 120 capsule 2 024 2024 Discontinued oseltamivir (Tamiflu) 75 mg capsuleIndication s:Influenza A [...] 05/07/20 Assessment & Plan (05/07/2024 8:57 PM COMMERCIAL DRAFTER): I have examined this patient and ordered [...] She has had evaluation by Urology at [facility] and has been told there is [...] 08/03/2023 Assessment & Plan (05/07/2024 8:56 PM COMMERCIAL DRAFTER): Discussed the patient's BMI. The BMI is [...] provided. Assessment & Plan (09/06/2023 9:38 AM COMMERCIAL DRAFTER): Discussed the patient's BMI. The BMI is above average. BMI management plan is completed. BMI Follow-up includes: nutrition counseling, exercise counseling and education provided. Patient has an obesity-related condition (not limited to: hypertension, obstructive sleep apnea, osteoarthritis, hyperlipidemia, diabetes, etc.). Therefore, morbid obesity may be documented for patients with a BMI between 35.00-39.99. Assessment & Plan (08/07/2023 7:51 PM COMMERCIAL DRAFTER): Discussed the patient's BMI. The BMI is above average. BMI management plan is completed. BMI Follow-up includes: nutrition counseling, exercise counseling and education provided. Patient has an obesity-related condition (not limited to: hypertension, obstructive sleep apnea, osteoarthritis, hyperlipidemia, diabetes, etc.). Therefore, morbid obesity may be documented for patients with a BMI between 35.00-39.99. Assessment & Plan (08/03/2023 7:45 AM COMMERCIAL DRAFTER): Discussed the patient's BMI. The BMI is above average. BMI management plan is completed. BMI Follow-up includes: nutrition counseling, exercise counseling and education provided. Primary osteoarthritis of right knee 07/08/2023 Assessment & Plan (05/07/2024 8:56 PM COMMERCIAL DRAFTER): Patient has arthritis in the right knee. Planning a total knee replacement with Dr. Alexus Motta on May 30 Assessment & Plan (08/03/2023 8:28 AM COMMERCIAL DRAFTER): Continue per ortho. She is seeing some improvement but it is difficult to know if the knee is rheumatoid versus osteo versus other etiology. Will await recommendations from JACQUI Raya but definitely encouraged her to become active as soon as possible. Status post total knee replacement using cement, right 05/19/2023 Assessment & Plan (06/02/2023 4:56 PM COMMERCIAL DRAFTER): Status post total knee replacement with Dr. Ge Sexton 04 May. She has just been released from rehab following up for her TCM visit. She appears to have an area of cellulitis at the incision site. She is also complaining of increased pain. Will check CBC CMP and inflammatory markers along with an x-ray. She plans to go to [facility] for the workup. Will follow up [...] provided. Assessment & Plan (06/02/2023 8:27 AM COMMERCIAL DRAFTER): Discussed the patients BMI: The BMI is [...] 12/20/2022 Assessment & Plan (05/07/2024 8:55 PM COMMERCIAL DRAFTER): Patient is on medication for her rheumatoid arthritis managed by [facility] Assessment & Plan (01/22/2024 8:13 PM CDT): Medications from [facility] contribute to her immunosuppressive state. Assessment & Plan (09/06/2023 9:41 AM COMMERCIAL DRAFTER): Medications are managed by [facility] for her rheumatoid arthritis Assessment & Plan (04/06/2023 7:44 PM CDT): Managed by [facility]. Currently on Plaquenil methotrexate Orencia folic acid. [...] She has had evaluation by Urology at [facility] and has been told there is [...] capacity. Assessment & Plan (09/06/2023 9:41 AM COMMERCIAL DRAFTER): Continue per . She did not tolerate [...] Pate. Assessment & Plan (07/18/2022 10:20 AM COMMERCIAL DRAFTER): CT revealed pelvic lipomatosis that is compressing [...] 02/11/2022 Assessment & Plan (09/06/2023 9:41 AM COMMERCIAL DRAFTER): No change. Dysfunction of both eustachian tubes 02/11/2022 Myalgia, lower leg 01/11/2022 PLMD (periodic limb movement disorder) Assessment & Plan (08/02/2024 11:49 AM COMMERCIAL DRAFTER): Asymptomatic Assessment & Plan (06/22/2022 10:31 AM COMMERCIAL DRAFTER): Will continue Requip 1 mg nightly Assessment [...] bedtime. Assessment & Plan (07/13/2021 11:25 AM COMMERCIAL DRAFTER): Due to the patient stating that she [...] 06/04/2020 Assessment & Plan (08/23/2024 10:16 AM COMMERCIAL DRAFTER): Hepatitis negative 06/2020 Tspot negative 06/2020 Continue routine lab monitoring Maintain routine eye exams throughout the duration of taking hydroxychloroquine Assessment & Plan (07/30/2024 8:24 AM COMMERCIAL DRAFTER): Hepatitis negative 06/2020 Tspot negative 06/2020 Continue [...] hydroxychloroquine Assessment & Plan (09/01/2023 8:34 AM COMMERCIAL DRAFTER): Hepatitis negative 06/2020 Tspot negative 06/2020 Continue routine lab monitoring Maintain routine eye exams throughout the duration of taking hydroxychloroquine Assessment & Plan (06/29/2023 2:19 PM COMMERCIAL DRAFTER): Hepatitis negative 06/2020 Tspot negative 06/2020 Continue [...] hydroxychloroquine Assessment & Plan (07/14/2022 2:58 PM COMMERCIAL DRAFTER): Hepatitis negative 06/2020 Tspot negative 06/2020 Continue routine lab monitoring Maintain routine eye exams throughout the duration of taking hydroxychloroquine Assessment & Plan (06/03/2022 9:58 AM COMMERCIAL DRAFTER): Hepatitis negative 06/2020 Tspot negative 06/2020 Continue [...] hydroxychloroquine Assessment & Plan (09/03/2021 8:29 AM COMMERCIAL DRAFTER): Hepatitis negative 06/2020 Tspot negative 06/2020 Continue routine lab monitoring Maintain routine eye exams throughout the duration of taking hydroxychloroquine Assessment & Plan (06/03/2021 4:17 PM COMMERCIAL DRAFTER): Hepatitis negative 06/2020 Tspot negative 06/2020 Continue [...] hydroxychloroquine Assessment & Plan (09/02/2020 1:16 PM COMMERCIAL DRAFTER): Hepatitis negative 06/2020 Tspot negative 06/2020 Continue routine lab monitoring Maintain routine eye exams throughout the duration of taking hydroxychloroquine Assessment & Plan (07/09/2020 12:23 PM COMMERCIAL DRAFTER): Hepatitis negative 06/2020 Tspot negative 06/2020 Continue routine lab monitoring Maintain routine eye exams throughout the duration of taking hydroxychloroquine Drug-induced constipation 08/13/2019 Assessment & Plan (05/07/2024 8:54 PM COMMERCIAL DRAFTER): Patient with chronic constipation. Has been on [...] linzess Assessment & Plan (08/13/2019 8:57 AM COMMERCIAL DRAFTER): On Movantik with Dr. Soto Herpes zoster without complication 12/13/2018 Assessment & Plan (12/23/2018 10:18 PM CDT): Valtex to pharmacy. She has had shingles in the past. Pre-diabetes 10/31/2018 Assessment & Plan (05/07/2024 8:55 PM COMMERCIAL DRAFTER): Pre-diabetes/hyperglycemia is a precursor to Dm. Stressed [...] diabetes. Assessment & Plan (09/06/2023 9:40 AM COMMERCIAL DRAFTER): Pre-diabetes/hyperglycemia is a precursor to Dm. Stressed [...] diabetes. Assessment & Plan (09/11/2021 11:22 PM COMMERCIAL DRAFTER): Pre-diabetes/hyperglycemia is a precursor to Dm. Stressed importance of working on diet (decrease your simple sugars and one carbohydrate with each meal) and increase you exercise to achieve weight loss and this will help prevent you from progressing to diabetes. Assessment & Plan (05/29/2021 8:18 PM COMMERCIAL DRAFTER): Pre-diabetes/hyperglycemia is a precursor to Dm. Stressed [...] diabetes. Assessment & Plan (08/31/2020 9:34 AM COMMERCIAL DRAFTER): Pre-diabetes is a precursor to Dm. Stressed [...] diabetes. Assessment & Plan (08/13/2019 9:00 AM COMMERCIAL DRAFTER): This is a significant, separately identifiable problem [...] 10/31/2018 Assessment & Plan (05/07/2024 8:54 PM COMMERCIAL DRAFTER): Depression symptoms are stable with Wellbutrin XL 150 Cymbalta 60 b.i.d. Assessment & Plan (04/21/2024 8:50 PM CDT): Depression symptoms are stable with the Wellbutrin XL 150 and Cymbalta 60 b.i.d. Assessment & Plan (01/22/2024 8:11 PM CDT): Depression symptoms are stable with Wellbutrin and Cymbalta Assessment & Plan (09/06/2023 9:40 AM COMMERCIAL DRAFTER): Depression is stable with Wellbutrin and Cymbalta Assessment & Plan (08/03/2023 8:31 AM COMMERCIAL DRAFTER): Stable with Cymbalta 60 and Wellbutrin XL [...] Cymbalta Assessment & Plan (09/11/2021 11:26 PM COMMERCIAL DRAFTER): Continue Wellbutrin and Cymbalta Assessment & Plan (05/29/2021 8:22 PM COMMERCIAL DRAFTER): Continue Wellbutrin and Cymbalta Assessment & Plan (05/24/2021 10:39 AM COMMERCIAL DRAFTER): Continue Wellbutrin and Cymbalta Assessment & Plan (12/24/2020 9:07 AM CDT): Continue wellbutrin and cymbalta Assessment & Plan (08/31/2020 9:35 AM COMMERCIAL DRAFTER): Continue wellbutrin and cymbalta Assessment & Plan (02/18/2020 9:47 PM CDT): Stable with the Cymbalata Assessment & Plan (08/13/2019 8:59 AM COMMERCIAL DRAFTER): Stable with Cymbalta and Wellbutrin Assessment & [...] regimen. Med list updated to reflect the [id number] one daily and Prozac 40mg. Mixed hyperlipidemia 03/29/2018 Assessment & Plan (05/07/2024 8:54 PM COMMERCIAL DRAFTER): Encouraged patient to follow low fat/low chol [...] statin Assessment & Plan (09/06/2023 9:42 AM COMMERCIAL DRAFTER): Encouraged patient to follow low fat/low chol [...] statin Assessment & Plan (09/11/2021 11:26 PM COMMERCIAL DRAFTER): Encouraged patient to follow low fat/low chol diet like the Mediterranean diet. Increase good fats in the diet. Increase exercise. Monitor labs as needed. Continue statin Assessment & Plan (05/29/2021 8:22 PM COMMERCIAL DRAFTER): Encouraged patient to follow fat/low chol diet like the Mediterranean diet. Increase good fats in the diet. Increase exercise. Monitor labs as needed. Continue statin Assessment & Plan (05/24/2021 10:39 AM COMMERCIAL DRAFTER): Encouraged patient to follow fat/low chol diet like the Mediterranean diet. Increase good fats in the diet. Increase exercise. Monitor labs as needed. Continue statin Assessment & Plan (12/24/2020 9:07 AM CDT): Encouraged patient to follow fat/low chol diet like the Mediterranean diet. Increase good fats in the diet. Increase exercise. Monitor labs as needed. Continue statin Assessment & Plan (08/31/2020 9:34 AM COMMERCIAL DRAFTER): Encouraged patient to follow fat/low chol diet like the Mediterranean diet. Increase good fats in the diet. Increase exercise. Monitor labs as needed. Continue statin Assessment & Plan (02/18/2020 9:46 PM CDT): Encouraged patient to continue low fat/low chol diet. Continue exercise. Increase good fats in the diet. Monitor labs as needed. Assessment & Plan (08/13/2019 8:59 AM COMMERCIAL DRAFTER): Encouraged patient to continue low fat/low chol [...] future Assessment & Plan (09/06/2023 9:40 AM COMMERCIAL DRAFTER): Continue PPI Assessment & Plan (04/06/2023 7:36 PM CDT): Continue PPI p.r.n. Assessment & Plan (01/20/2023 8:13 PM CDT): Continue PPI Assessment & Plan (09/12/2022 6:13 PM CDT): Continue PPI p.r.n. Assessment & Plan (06/03/2022 3:40 PM COMMERCIAL DRAFTER): Pyrosis poorly controlled on Nexium. Pt has [...] PPI Assessment & Plan (09/11/2021 11:26 PM COMMERCIAL DRAFTER): Continue PPI Assessment & Plan (12/24/2020 9:05 AM CDT): Continue PPI Assessment & Plan (02/18/2020 9:45 PM CDT): Continue PPI. Saw Dr. Linton for increased GERD sxs. If persist, encouraged to followup again with Dr. Linton. Assessment & Plan (08/13/2019 8:58 AM COMMERCIAL DRAFTER): Stable with PPI Assessment & Plan (04/29/2019 [...] exertion) Assessment & Plan (06/22/2022 10:30 AM COMMERCIAL DRAFTER): Patient is not currently using inhalers. She [...] 10/14/2015 Assessment & Plan (08/02/2024 11:49 AM COMMERCIAL DRAFTER): Due to the patient stating the pressure [...] readjusted. She denied need for supplies. DME [facility] Assessment & Plan (05/07/2024 8:55 PM COMMERCIAL DRAFTER): Continue with CPAP. Assessment & Plan (04/21/2024 8:49 PM CDT): Continue per Dr. Dunn. Has all her needed supplies for CPAP which she is using every night. Continue with Requip 0.5 mg HS for restless leg Assessment & Plan (01/22/2024 8:08 PM CDT): Continue CPAP per Dr. Dunn Assessment & Plan (09/06/2023 9:40 AM COMMERCIAL DRAFTER): Continue CPAP Assessment & Plan (06/21/2023 10:14 AM COMMERCIAL DRAFTER): Patient continue to wear her CPAP at [...] CPAP Assessment & Plan (06/22/2022 10:31 AM COMMERCIAL DRAFTER): Will continue CPAP therapy at an auto titrating range of 7-20 cm water pressure. Denied need for supplies. [employer] [facility] Assessment & Plan (05/02/2022 9:15 [...] water pressure. Patient denied need for supplies. [employer] patient. Patient is benefitting CPAP Assessment & Plan (09/11/2021 11:22 PM COMMERCIAL DRAFTER): Continue CPAP. Patient has all needed supplies. Assessment & Plan (07/13/2021 11:27 AM COMMERCIAL DRAFTER): Due to the patient stating she does not have enough pressure in her machine, I have increased the pressure to 13 cm water pressure. The patient denied need for for supplies. [employer] patient. Have also ordered a new smart card set at 13 cm water pressure. Benefitting from CPAP therapy Assessment & Plan (05/29/2021 8:14 PM COMMERCIAL DRAFTER): Continue CPAP. Assessment & Plan (02/17/2021 11:09 AM CDT): The patient continues to be compliant with her CPAP at 8 cm water pressure. She has developed worsening daytime hypersomnia. She also has morning headaches and dry mouth. I have recommended proceeding with a CPAP titration study starting at 8 cm water pressure. Her DME is [facility]. Assessment & Plan (12/24/2020 9:04 AM CDT): Continue CPAP. Would like to see Pulm/sleep at [facility] as difficulty getting in consistently at [place] and most of her care is now [facility] Assessment & Plan (02/18/2020 9:44 PM CDT): Continue CPAP Assessment & Plan (08/13/2019 8:46 AM COMMERCIAL DRAFTER): Using the CPAP. Has equipment as needed. [...] noted. Assessment & Plan (08/23/2024 10:16 AM COMMERCIAL DRAFTER): 02/2021 XR L knee with mild to moderate OA, now s/p B TKA. Following with ortho as planned. Assessment & Plan (07/30/2024 11:23 AM COMMERCIAL DRAFTER): 02/2021 XR L knee with mild to [...] March. Assessment & Plan (09/01/2023 3:42 PM COMMERCIAL DRAFTER): 02/2021 XR L knee with mild to moderate OA, R knee negative. Had injections with ortho without benefit, now s/p L TKA. Assessment & Plan (06/30/2023 12:46 PM COMMERCIAL DRAFTER): 02/2021 XR L knee with mild to [...] g/d. Assessment & Plan (07/15/2022 1:41 PM COMMERCIAL DRAFTER): 02/2021 XR L knee with mild to moderate OA, R knee negative. Had injections with ortho with benefit. Unable to afford PT. Can continue Tylenol Arthritis, not to exceed 4 g/d. Assessment & Plan (06/03/2022 9:58 AM COMMERCIAL DRAFTER): 02/2021 XR L knee with mild to [...] evaluation. Assessment & Plan (09/03/2021 11:27 AM COMMERCIAL DRAFTER): XR L knee with mild to moderate [...] able. Assessment & Plan (06/04/2021 10:27 AM COMMERCIAL DRAFTER): XR L knee with mild to moderate [...] above. Assessment & Plan (09/03/2020 12:23 PM COMMERCIAL DRAFTER): 10/27/2017 XR L knee: mild tricompartmental OA. Will continue meloxicam as above. Assessment & Plan (07/09/2020 12:24 PM COMMERCIAL DRAFTER): 10/27/2017 XR L knee: mild tricompartmental OA. [...] examination. Assessment & Plan (08/23/2024 12:54 PM COMMERCIAL DRAFTER): Moderate cdai with report of increasing pain, [...] needed. Assessment & Plan (07/30/2024 11:22 AM COMMERCIAL DRAFTER): Moderate cdai with report of increased morning [...] with labs near her home ([facility] in [place]), but the following month will need to plan for an in person visit. She expressed understanding and agreement with this plan. Continue methotrexate 20 mg weekly, folic acid 2 mg daily, and hydroxychloroquine 200 mg BID. Labs today as below. Assessment & Plan (05/07/2024 8:55 PM COMMERCIAL DRAFTER): Managed by [facility]. Currently on Plaquenil and methotrexate and Orencia folic acid Mobic and gabapentin. Stressed she needs to be in contact with her supervisor opening and picking on when and which medicines to stop for the surgery. Assessment & Plan (04/21/2024 8:49 PM CDT): Continue per [facility]. They currently manage her rheumatoid [...] Plan (01/22/2024 8:17 PM CDT): Continue per [facility] as they manage her condition. Assessment & Plan (11/24/2023 9:58 AM CDT): Low cdai without inflammatory sounding pain. Will continue methotrexate 20 mg weekly, folic acid 2 mg daily, hydroxychloroquine 200 mg BID, and Orencia and monitor. Labs today as below. Follow up in 3 months or sooner as needed. Assessment & Plan (09/06/2023 9:42 AM COMMERCIAL DRAFTER): Rheumatoid arthritis is managed by [facility]. Currently on Plaquenil methotrexate Orencia and folic acid Assessment & Plan (09/01/2023 3:39 PM COMMERCIAL DRAFTER): Overall stable without notable synovitis and no inflammatory sounding pain. Will continue methotrexate 20 mg weekly, folic acid 2 mg daily, hydroxychloroquine 200 mg BID, and Orencia and monitor. Labs today as below. Follow up in 3 months or sooner as needed. Assessment & Plan (08/03/2023 8:28 AM COMMERCIAL DRAFTER): Continue with rheumatology. Assessment & Plan (06/30/2023 12:43 PM COMMERCIAL DRAFTER): Overall stable without notable synovitis and no inflammatory sounding pain. Will continue methotrexate 20 mg weekly, folic acid 2 mg daily, hydroxychloroquine 200 mg BID, and Orencia and monitor. Labs today as below. Assessment & Plan (06/02/2023 4:49 PM COMMERCIAL DRAFTER): Continue per Rheumatology Assessment & Plan (04/06/2023 7:35 PM CDT): Continue per Rheumatology. She has been in discussion with them on what medications to stop prior to her knee surgery. She states she was told to take all of her medicines accept the Orencia. Assessment & Plan (01/20/2023 8:12 PM CDT): Continue per Rheumatology [facility] Assessment & Plan (01/13/2023 3:42 [...] Plan (09/12/2022 6:06 PM CDT): Continue with [facility] Assessment & Plan (07/15/2022 1:41 PM COMMERCIAL DRAFTER): Low cdai. Significantly improved after IM triamcinolone [...] needed. Assessment & Plan (06/03/2022 3:37 PM COMMERCIAL DRAFTER): High cdai. Previously felt well controlled with current regimen. Due to burden of disease will give patient a triamcinolone injection. Patient made aware of SE of steroids including but not limited to HTN, increased blood glucose, cataracts, glaucoma, AVN, and osteoporosis with long term care phlebotomist use. Should she flare again shortly after [...] (01/23/2022 4:57 PM CDT): Continue management per [facility] Assessment & Plan (12/07/2021 9:02 AM CDT): Low cdai. Denies inflammatory sounding joint pain. Continue methotrexate 25 mg weekly, folic acid to 2 mg daily, Rinvoq 15 mg daily, hydroxychloroquine 200 mg BID, and cyclobenzaprine 5 mg qhs and monitor. Labs today as below. Plan for follow up in 3 months or sooner as needed. Assessment & Plan (09/11/2021 11:14 PM COMMERCIAL DRAFTER): Continue per [facility] Assessment & Plan (09/03/2021 11:25 AM COMMERCIAL DRAFTER): cdai = 12. Pt suspects increased joint [...] needed. Assessment & Plan (06/04/2021 10:25 AM COMMERCIAL DRAFTER): Low cdai. Denies inflammatory sounding pain at present. Will plan to continue methotrexate 25 mg weekly, folic acid to 2 mg daily, Rinvoq 15 mg daily, hydroxychloroquine 200 mg BID, and cyclobenzaprine 5 mg qhs and monitor. Labs today as below. Plan for follow up in 3 months or sooner as needed. Assessment & Plan (05/31/2021 9:15 PM COMMERCIAL DRAFTER): Continue per Rheumatology Assessment & Plan (05/29/2021 8:13 PM COMMERCIAL DRAFTER): Continue per Rheumatology. Currently on Plaquenil methotrexate and folic acid. Assessment & Plan (05/24/2021 10:38 AM COMMERCIAL DRAFTER): Continue per Rheumatology Assessment & Plan (03/05/2021 [...] needed. Assessment & Plan (09/03/2020 12:22 PM COMMERCIAL DRAFTER): Low cdai. Continues to feel improved with [...] needed. Assessment & Plan (08/31/2020 9:34 AM COMMERCIAL DRAFTER): Continue per [facility] Assessment & Plan (07/09/2020 12:22 PM COMMERCIAL DRAFTER): 64yoF with a h/o seropositive RA diagnosed [...] time. Assessment & Plan (06/04/2020 11:14 AM COMMERCIAL DRAFTER): 64yoF with a h/o seropositive RA diagnosed [...] needed. Assessment & Plan (05/14/2020 9:33 PM COMMERCIAL DRAFTER): Refer to new [employer] as Dr. Soto has . Assessment & Plan (02/18/2020 9:46 PM CDT): Continue per Rheum Assessment & Plan (08/13/2019 8:59 AM COMMERCIAL DRAFTER): Continue per Dr. Soto Assessment & Plan [...] responding to Reclast. Forteo was tried by [facility] and she could not tolerate. [...] of her osteoporosis, recommended evaluation by the [facility], unfortunately their first available appt was in November 2024. Recommended today that she check with [facility] (at [facility]) to see how far out they are scheduling new patients, though she does not like this option due to distance from her house. Assessment & Plan (09/06/2023 9:40 AM COMMERCIAL DRAFTER): Managed by [facility]. Per patient they are making a referral to bone metabolism at [facility] she has not seen significant improvement with the Forteo or the Reclast. Assessment & Plan (09/01/2023 3:43 PM COMMERCIAL DRAFTER): DEXA: Lspine BMD 0.809 Tscore -2.2, L [...] of her osteoporosis, recommend evaluation by the [facility], provided contact info for Dr. Castillo. Pt in agreement with plan. Assessment & Plan (06/30/2023 12:49 PM COMMERCIAL DRAFTER): DEXA: Lspine BMD 0.809 Tscore -2.2, L [...] PM CDT): Continue to monitor. Managed by [facility]. Patient is on Reclast calcium vitamin-D [...] exercise Assessment & Plan (07/15/2022 1:42 PM COMMERCIAL DRAFTER): 01/27/2021 DEXA: Lspine -1.8, L femoral neck -1.9, L total hip -1.2, R femoral neck -2.3, R total hip -1.0, FRAX major 32% and hip 7%. Received Reclast 07/2021. Continue yearly Reclast, scheduled for 07/22 Assessment & Plan (06/03/2022 3:38 PM COMMERCIAL DRAFTER): 01/27/2021 DEXA: Lspine -1.8, L femoral neck [...] Plan (01/23/2022 5:02 PM CDT): Managed by [facility] currently on Reclast calcium and vitamin-D Assessment & Plan (12/07/2021 9:04 AM CDT): 01/27/2021 DEXA: Lspine -1.8, L femoral neck -1.9, L total hip -1.2, R femoral neck -2.3, R total hip -1.0, FRAX major 32% and hip 7%. Received Reclast 07/2021. Continue yearly Reclast. Assessment & Plan (09/03/2021 11:26 AM COMMERCIAL DRAFTER): 01/27/2021 DEXA: Lspine -1.8, L femoral neck -1.9, L total hip -1.2, R femoral neck -2.3, R total hip -1.0, FRAX major 32% and hip 7%. Received Reclast 07/2021. Continue yearly reclast and daily vitamin D-calcium supplement. Assessment & Plan (06/04/2021 10:27 AM COMMERCIAL DRAFTER): 01/27/2021 DEXA: Lspine -1.8, L femoral neck [...] order provided today, she will schedule at [facility] Assessment & Plan (12/24/2020 9:06 AM CDT): Continue Reclast thru Rheum Continue calcium, vitD and exercise Assessment & Plan (12/03/2020 10:45 AM CDT): Vitamin D level was 68. Received Reclast 07/09/2020. Last DEXA per available records was 01/31/2019, due this summer - order provided today, she will schedule at [facility] Assessment & Plan (09/03/2020 12:23 PM COMMERCIAL DRAFTER): Vitamin D level was 68. Received Reclast 07/09/2020. Last DEXA per available records was 01/31/2019, due this summer. Assessment & Plan (07/09/2020 12:23 PM COMMERCIAL DRAFTER): Overdue for Reclast, last infusion was 03/28/2019, will receive infusion today. Vitamin D level was 68 Last DEXA per available records was 01/31/2019 Assessment & Plan (06/04/2020 11:15 AM COMMERCIAL DRAFTER): Overdue for Reclast, last infusion was 03/28/2019, will check benefits. Recheck vitamin D level now. Last DEXA per available records was 01/31/2019 Assessment & Plan (02/18/2020 9:46 PM CDT): Calcium, vit D and exercise. Continue to monitor DXA Assessment & Plan (08/13/2019 8:58 AM COMMERCIAL DRAFTER): Continue with Calcium, Vit D and Exercise. [...] Krishnamurthy. Assessment & Plan (09/06/2023 9:41 AM COMMERCIAL DRAFTER): New diagnosis Dupree's esophagus made on 08/2023 EGD at [place] with Dr. Daniels Stressed importance of very close follow-up BMI 37.0-37.9, adult 09/06/2023 024 Assessment & Plan (10/13/2023 7:38 AM CDT): Discussed the patient's BMI. The BMI is above average. BMI management plan is completed. BMI Follow-up includes: nutrition counseling, exercise counseling and education provided. Assessment & Plan (09/06/2023 9:42 AM COMMERCIAL DRAFTER): Discussed the patient's BMI. The BMI is above average. BMI management plan is completed. BMI Follow-up includes: nutrition counseling, exercise counseling and education provided. Hyperglycemia 09/06/2023 09/06/2023 Positive depression screening 09/06/2023 09/06/2023 Annual physical exam 09/06/2023 024 Assessment & Plan (09/06/2023 9:43 AM COMMERCIAL DRAFTER): Encouraged healthy lifestyle, good nutrition and exercise. Encouraged Calcium and Vitamin D and weight bearing exercise for bone health. Reviewed immunizations Reviewed age appropirate screenings. Right knee pain 08/09/2023 09/06/2023 Sinus congestion 08/07/2023 09/06/2023 Assessment & Plan (08/07/2023 7:54 PM COMMERCIAL DRAFTER): Persistent sinusitis symptoms along with cough. Will start doxy b.i.d.. Start antihistamine (Claritin OR Zyrtec), Mucinex 12hour and Steroid nasal spray (Flonase). Push fluids. Rest. Supportive care. If sxs worsen or don\'t improve, pt is to followup in the office. Acute cough 08/07/2023 01/22/2024 Assessment & Plan (08/07/2023 7:55 PM COMMERCIAL DRAFTER): Persistent sinusitis symptoms along with cough. Will start doxy b.i.d.. Start antihistamine (Claritin OR Zyrtec), Mucinex 12hour and Steroid nasal spray (Flonase). Push fluids. Rest. Supportive care. If sxs worsen or don\'t improve, pt is to followup in the office. BMI 35.0-35.9,adult 08/03/2023 09/06/19 24 Assessment & Plan (08/07/2023 7:51 PM COMMERCIAL DRAFTER): Discussed the patient's BMI. The BMI is above average. BMI management plan is completed. BMI Follow-up includes: nutrition counseling, exercise counseling and education provided. Assessment & Plan (08/03/2023 8:29 AM COMMERCIAL DRAFTER): Discussed the patient's BMI. The BMI is [...] 01/22/2024 Assessment & Plan (06/02/2023 4:57 PM COMMERCIAL DRAFTER): Later in the day received critical lab call for a CO2 value at 42. My staff contacted the patient and she was instructed to go to the ER for further evaluation to determine underlying cause. She states throughout the day she has noticed a little bit more shortness of breath. She [facility] Charge nurse was notified of the arrival [...] surgery. 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 Her chronic medical conditions are stable. [facility] as instructed her to hold the [...] Dr. Ge Sexton on May 04 at [facility]. Need for vaccination for Strep pneumoniae [...] symptoms worsen or do not respond to [id number] allergy medicines within the next week she may call and will consider antibiotic. Left knee pain 09/13/2022 09/06/2023 BMI 39.0-39.9,adult 08/23/2022 11/09/19 Assessment & Plan (10/25/2022 3:32 PM CDT): Discussed the patient's BMI. The BMI is above average. BMI management plan is completed. BMI Follow-up includes: nutrition counseling, exercise counseling and education provided. Assessment & Plan (08/23/2022 2:19 PM COMMERCIAL DRAFTER): Discussed the patient's BMI. The BMI is [...] plans Assessment & Plan (07/18/2022 10:20 AM COMMERCIAL DRAFTER): CT revealed pelvic lipomatosis that is compressing [...] 12/20/2022 Assessment & Plan (07/18/2022 10:21 AM COMMERCIAL DRAFTER): CT revealed pelvic lipomatosis that is compressing [...] plan, Assessment & Plan (07/08/2022 12:33 PM COMMERCIAL DRAFTER): Patient has had dysuria. She was started [...] STAT abd/pelvis with and without contrast at [place]. Check labs STAT. Acute right flank pain 07/08/202204/06 Assessment & Plan (07/18/2022 10:21 AM COMMERCIAL DRAFTER): CT revealed pelvic lipomatosis that is compressing [...] plan, Assessment & Plan (07/08/2022 5:58 PM COMMERCIAL DRAFTER): Images from the original note were not [...] STAT abd/pelvis with and without contrast at [place]. Check labs STAT. STAT CT Abd/pelvis without [...] 09/06/2023 Assessment & Plan (07/08/2022 12:33 PM COMMERCIAL DRAFTER): Patient has had dysuria. She was started [...] STAT. Assessment & Plan (07/06/2022 8:50 AM COMMERCIAL DRAFTER): Pt presents with dysuria. Urine dip completed. [...] 35.00-39.99. Assessment & Plan (07/18/2022 10:23 AM COMMERCIAL DRAFTER): Discussed the patient's BMI. The BMI is above average. BMI management plan is completed. BMI Follow-up includes: nutrition counseling, exercise counseling and education provided. Assessment & Plan (07/08/2022 12:30 PM COMMERCIAL DRAFTER): Discussed the patient's BMI. The BMI is [...] She has received multiple injections from her supervisor opening and picking regarding her knee but yesterday when she [...] 01/23/2022 Assessment & Plan (09/11/2021 11:28 PM COMMERCIAL DRAFTER): Patient has never had a full skin exam. She has quite a few lesions scattered and would benefit from a full exam. Will make referral Annual physical exam 09/11/2021 022 Assessment & Plan (09/11/2021 11:28 PM COMMERCIAL DRAFTER): Encouraged healthy lifestyle, good nutrition and exercise. Encouraged Calcium and Vitamin D and weight bearing exercise for bone health. Reviewed immunizations Reviewed age appropirate screenings. Cough 08/13/2021 01/23/2022 Assessment & Plan (08/13/2021 3:43 PM COMMERCIAL DRAFTER): Patient to presume positive COVID/FLU until results are available and plan to self isolate for up to 10 days from the onset of sxs. Check COVID/FLU test thru [facility] collection site in [place]. Let pt know the newest CDC recommendations [...] future. Assessment & Plan (07/13/2021 11:28 AM COMMERCIAL DRAFTER): I have ordered the patient Claritin 10 [...] provided. Assessment & Plan (09/11/2021 11:27 PM COMMERCIAL DRAFTER): Obesity is unchanged. Discussed the patient's BMI. The BMI is above average. BMI management plan is completed. BMI Follow-up includes: nutrition counseling, exercise counseling and education provided. Assessment & Plan (05/29/2021 8:24 PM COMMERCIAL DRAFTER): Obesity is unchanged. Discussed the patient's BMI. The BMI is above average. BMI management plan is completed. BMI Follow-up includes: nutrition counseling, exercise counseling and education provided. Assessment & Plan (05/12/2021 1:26 PM COMMERCIAL DRAFTER): Obesity is unchanged. Discussed the patient's BMI. The BMI is above average. BMI management plan is completed. BMI Follow-up includes: nutrition counseling, exercise counseling and education provided. BMI 37.0-37.9, adult 05/12/2021 05 022 Assessment & Plan (09/11/2021 11:27 PM COMMERCIAL DRAFTER): Obesity is unchanged. Discussed the patient's BMI. The BMI is above average. BMI management plan is completed. BMI Follow-up includes: nutrition counseling, exercise counseling and education provided. Assessment & Plan (05/29/2021 8:24 PM COMMERCIAL DRAFTER): Obesity is unchanged. Discussed the patient's BMI. The BMI is above average. BMI management plan is completed. BMI Follow-up includes: nutrition counseling, exercise counseling and education provided. Assessment & Plan (05/12/2021 1:26 PM COMMERCIAL DRAFTER): Obesity is unchanged. Discussed the patient's BMI. The BMI is above average. BMI management plan is completed. BMI Follow-up includes: nutrition counseling, exercise counseling and education provided. Tinea corporis 04/14/2021 01/23/2022 Assessment & Plan (05/31/2021 9:15 PM COMMERCIAL DRAFTER): Improving with Lotrisone. Keep the area clean and dry Assessment & Plan (05/29/2021 8:24 PM COMMERCIAL DRAFTER): Lotrisone to pharmacy. Encouraged her to keep the area clean and dry use her dryer to dry the skin before applying the cream. She is to call if symptoms worsen or do not resolve. Need for immunization against influenza 04/14/2021 05/31/2021 Assessment & Plan (05/29/2021 8:24 PM COMMERCIAL DRAFTER): Fluid updated in the office Medicare annual wellness visit, subsequent 04/13/2021 05/31/2021 Assessment & Plan (05/29/2021 8:23 PM COMMERCIAL DRAFTER): Encouraged healthy lifestyle, good nutrition and exercise. [...] 12/30/2020 Assessment & Plan (08/31/2020 9:31 AM COMMERCIAL DRAFTER): Error. This should be right calf but PT order sent and corrected so unable to remove. Fatigue 08/31/2020 09/06/2023 Assessment & Plan (04/06/2023 7:43 PM CDT): Probably multifactorial. Check labs and followup to re-evaluate Assessment & Plan (05/02/2022 9:16 PM CDT): Probably multifactorial. Check labs and followup to re-evaluate Assessment & Plan (08/31/2020 9:34 AM COMMERCIAL DRAFTER): Probably multifactorial. Check labs and followup to re-evaluate Pain in both lower extremities 08/31/2020 09/06/2023 Assessment & Plan (09/01/2023 3:41 PM COMMERCIAL DRAFTER): Cramping lower leg pain has resolved with [...] 021 Assessment & Plan (08/31/2020 9:33 AM COMMERCIAL DRAFTER): Obesity is unchanged. Discussed the patient's BMI. The BMI is above average. BMI management plan is completed. BMI Follow-up includes: nutrition counseling, exercise counseling and education provided. Pain of right calf 08/26/2020 Assessment & Plan (08/31/2020 9:31 AM COMMERCIAL DRAFTER): This is a significant, separately identifiable problem that was evaluated and managed on the same day as the wellness exam Unable to rule out DVT with her calf pain/sxs. Check STAT Venous doppler. Recvd Results and discussed with patient via phone. Negative for DVT. Recommend PT. Prefers [place] Annual physical exam 08/24/2020 021 Assessment & Plan (08/31/2020 9:34 AM COMMERCIAL DRAFTER): Encouraged healthy lifestyle, good nutrition and exercise. Encouraged Calcium and Vitamin D and weight bearing exercise for bone health. Reviewed immunizations Reviewed age appropirate screenings. Dizziness 05/07/2020 09/06/2023 Assessment & Plan (05/14/2020 9:35 PM COMMERCIAL DRAFTER): Suspect the dizziness is inner ear related. [...] imaging. Assessment & Plan (05/07/2020 1:49 PM COMMERCIAL DRAFTER): Declines to report to er now 'I [...] 05/14/2020 Assessment & Plan (05/07/2020 1:49 PM COMMERCIAL DRAFTER): Declines to report to er now 'I [...] 12/30/2020 Assessment & Plan (05/07/2020 1:49 PM COMMERCIAL DRAFTER): Declines to report to er now 'I [...] provided Assessment & Plan (05/31/2021 9:15 PM COMMERCIAL DRAFTER): Mammogram order provided Assessment & Plan (02/18/2020 9:47 PM CDT): Mammogram order provided today Medicare annual wellness visit, subsequent 02/15/2020 02/15/2020 Precordial pain 09/04/2019 09/06/2023 Assessment & Plan (08/07/2023 7:50 PM COMMERCIAL DRAFTER): Workup in the hospital. Cardiology states her [...] inhaler. Assessment & Plan (07/13/2021 11:26 AM COMMERCIAL DRAFTER): The patient will continue with Dulera 2 [...] 020 Assessment & Plan (08/13/2019 8:59 AM COMMERCIAL DRAFTER): Encouraged healthy lifestyle, good nutrition and exercise. Encouraged Calcium and Vitamin D and weight bearing exercise for bone health. Reviewed immunizations Reviewed age appropirate screenings. Obesity, morbid, BMI 40.0-49.9 08/13/2019 09/23/2020 Assessment & Plan (08/26/2020 7:10 AM COMMERCIAL DRAFTER): Obesity is unchanged. Discussed the patient's BMI. The BMI is above average. BMI management plan is completed. BMI Follow-up includes: nutrition counseling, exercise counseling and education provided. Assessment & Plan (05/14/2020 9:33 PM COMMERCIAL DRAFTER): Obesity is unchanged. Discussed the patient's BMI. [...] provided. Assessment & Plan (08/13/2019 8:58 AM COMMERCIAL DRAFTER): Obesity is unchanged. Discussed the patient's BMI. [...] change Assessment & Plan (08/13/2019 9:01 AM COMMERCIAL DRAFTER): This is a significant, separately identifiable problem [...] 01/22/2024 Assessment & Plan (09/06/2023 9:42 AM COMMERCIAL DRAFTER): Probably multifactorial. Check labs and followup to re-evaluate Assessment & Plan (09/03/2021 11:28 AM COMMERCIAL DRAFTER): She notes increased fatigue and lack of [...] re-evaluate Assessment & Plan (08/13/2019 9:08 AM COMMERCIAL DRAFTER): Probably multifactorial. Check labs and followup to re-evaluate Check labs prior to next visit BMI 40.0-44.9, adult 08/02/2019 020 Assessment & Plan (08/13/2019 8:57 AM COMMERCIAL DRAFTER): Obesity is unchanged. Discussed the patient's BMI. The BMI is above average. BMI management plan is completed. BMI Follow-up includes: nutrition counseling, exercise counseling and education provided. Assessment & Plan (08/02/2019 7:21 AM COMMERCIAL DRAFTER): Obesity is unchanged. Discussed the patient's BMI. The BMI is above average. BMI management plan is completed. BMI Follow-up includes: nutrition counseling, exercise counseling and education provided. Morbid obesity 08/02/2019 08/13/2019 Assessment & Plan (08/02/2019 7:20 AM COMMERCIAL DRAFTER): Obesity is unchanged. Discussed the patient's BMI. The BMI is above average. BMI management plan is completed. BMI Follow-up includes: nutrition counseling, exercise counseling and education provided. Acute non-recurrent maxillary sinusitis 08/02/2019 08/13/2019 Assessment & Plan (08/02/2019 7:47 AM COMMERCIAL DRAFTER): Start antibiotic, antihistamine, Mucinex and Steroid nasal [...] foot. She is being sent directly to [facility] and they were working her in [...] 21 Assessment & Plan (05/14/2020 9:33 PM COMMERCIAL DRAFTER): Completed Doxy and steroid. No s/s infection. [...] p.r.n. 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 She is on aspirin and statin Assessment & Plan (12/24/2020 9:03 AM CDT): Sxs stable. On ASA, statin and encouraged daily exercise. Assessment & Plan (02/18/2020 9:43 PM CDT): Continue per cardio. On ASA and statin Assessment & Plan (08/13/2019 8:45 AM COMMERCIAL DRAFTER): Continues with Dr. Alonso salmeron Assessment & Plan (11/01/2018 11:00 PM CDT): Pt sxs well controlled. 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 Continue per cardio Depression 07/16/2018 09/11/2021 Frontal sinusitis 06/26/2018 12/24/2020 Leukopenia 03/29/2018 12/30/2020 Other chronic pain 08/05/2017 3 Chronic seasonal allergic rh initis due to pollen 04/25/2017 12/30/2020 Assessment & Plan (12/24/2020 9:03 AM CDT): Continue current regimen with singulair and otc Assessment & Plan (02/18/2020 9:44 PM CDT): Continue with otc regimen Assessment & Plan (08/13/2019 8:46 AM COMMERCIAL DRAFTER): Continue current regimen Assessment & Plan (11/01/2018 [...] potassium Assessment & Plan (09/11/2021 11:26 PM COMMERCIAL DRAFTER): Bp is stable/in acceptable range for any co-morbidities. Encouraged to limit sodium intake and exercise for weight control. Currently stable without medication Assessment & Plan (05/29/2021 8:19 PM COMMERCIAL DRAFTER): Bp is stable/in acceptable range for any co-morbidities. Encouraged to limit sodium intake and exercise for weight control. Continue Lasix is helping with the swelling and addition. Blood pressure stable Assessment & Plan (05/24/2021 10:38 AM COMMERCIAL DRAFTER): Continue Lasix potassium Assessment & Plan (12/24/2020 9:05 AM CDT): Bp is stable/in acceptable range for any co-morbidities. Encouraged to limit sodium intake and exercise for weight control. Assessment & Plan (08/31/2020 9:32 AM COMMERCIAL DRAFTER): Bp is stable/in acceptable range for any co-morbidities. Encouraged to limit sodium intake and exercise for weight control. Stable with laxis currently Assessment & Plan (02/18/2020 9:44 PM CDT): Bp is stable/in acceptable range for any co-morbidities. Encouraged to limit sodium intake and exercise for weight control. Assessment & Plan (08/13/2019 8:57 AM COMMERCIAL DRAFTER): Bp is stable/in acceptable range for any [...] difficulty pulling them. Recommend finding some on [employer] that fit her calf that she can zip on and off. Showed them to her on [employer] and where to order them. She states she will try to get them. Assessment & Plan (05/31/2021 9:16 PM COMMERCIAL DRAFTER): Improving slowly. May have been due to the Relafen. She is on 60 of Lasix with potassium 10 mEq daily. Continue with current plan. Keep legs elevated. Utilize compressi to improve cleared. on hose. Call if symptoms worsen or do not continue to improve. Assessment & Plan (05/29/2021 8:23 PM COMMERCIAL DRAFTER): Persistent lower extremity edema that has improved [...] CMP. Assessment & Plan (05/24/2021 10:39 AM COMMERCIAL DRAFTER): Patient that her swelling was improving since discharge for over the last day or so it seems to be increasing. Will increase the Lasix to 40mg Start K 10meq daily Recheck labs in 5 days Assessment & Plan (08/31/2020 9:33 AM COMMERCIAL DRAFTER): Continue lasix Palpitations 12/08/2015 12/30/2020 Overview (10/09/2016): Palpitations Other abnormal glucose 11/11/201508/31 Asthma 10/14/2015 12/24/2020 Assessment & Plan (08/13/2019 8:49 AM COMMERCIAL DRAFTER): Continue with current regimen and with Pulmonary Assessment & Plan (11/01/2018 10:53 PM CDT): Currently Stable with regimen. Monitor closely with current allergy season. Followup Dr. Gomez as directed. Menopause 10/14/2015 12/30/2020 Cervical pain (neck) 10/14/2015 023 Encounters Date Type Department Care Team Description 10/04/2024 Results Follow-Up [facility] [address] [place] [address] Road [address] [place] [phone] Alee Elizondo PA 10/04/2024 Orders Only [address] [place] [phone] ProviderTania MD 10/03/2024 Telephone [facility] [address] [place] [address] [place] [phone] Alee Elizondo PA 09/26/2024 Orders Only [address] [place] [phone] Alee Elizondo PA Breast cancer screening by mammogram (Primary Dx) 09/25/2024 11:00 AM CDT Office Visit [facility] at [address] [phone] Jessica Collins NP Influenza A (Primary Dx); Acute cough 09/25/2024 Results Follow-Up [facility] [address] [place] [phone] Alee Elizondo PA 09/20/2024 8:00 AM CDT Office Visit [facility] [address] [place] [phone] Devika Marin MD Venous insufficiency (chronic) (peripheral) (Primary Dx); Mixed hyperlipidemia 09/20/2024 Telephone [facility] [address] [place] [phone] Michael Motta MD med clarification 09/14/[address] [phone] Yonas Codi Buttgardeniajohn [facility] 09/13/2024 2:45 PM CDT Office Visit [facility] [address] [place] [address] [place] [phone] Michael Motta MD Chronic pain of right knee (Primary Dx); History of total knee arthroplasty, right 09/13/2024 1:44 PM CDT - 09/13/2024 11:59 PM CDT Hospital Encounter [facility] Di[facility] Imaging [address] [place] [phone] Chronic pain of right knee Discharge Disposition: Discharge to home or self care 09/04/2024 Results Follow-Up [facility] [address] [place] [phone] Alee Elizondo PA 08/31/2024 Telephone [facility] [address] [place] [phone] Alee Elizondo PA Medical Question/Miscellaneou s 08/31/2024 Orders Only [address] [place] [phone] ProviderTania MD 08/29/2024 Nurse Triage [address] [place] [phone] Alee Elizondo PA 08/29/2024 Telephone [facility] [address] [phone] Shailesh Dunn MD Med Refill (Ropinirol HCL 0.5MG tab) 08/24/2024 Results Follow-Up [address] [phone] Sangita Farrar PA 08/23/2024 11:30 AM COMMERCIAL DRAFTER Office Visit [facility] [address] [place] [phone] Sangita Farrar PA 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) (Primary Dx); Primary osteoarthritis involving multiple joints; Encounter for medication monitoring 08/23/2024 Orders Only [facility] [address] [place] [phone] Alee Elizondo PA 08/23/[address] [phone] Sangita Farrar PA Orencia Approved 08/21/[address] [phone] Codi Branham 08/02/2024 11:45 AM COMMERCIAL DRAFTER Office Visit [address] [phone] Magaly Snider NP OWEN on CPAP (Primary Dx); OWEN (obstructive sleep apnea); PLMD (periodic limb movement disorder) 08/02/[address] [place] [phone] Shailesh Dunn MD Orders Only 08/01/2024 Orders Only [facility] [address] [place] [address] [address] [place] [phone] Alee Elizondo PA Pre-diabetes (Primary Dx); Mixed hyperlipidemia; Fatigue, unspecified type 07/30/2024 9:00 AM COMMERCIAL DRAFTER Office Visit [address] [phone] Sangita Farrar PA 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) (Primary Dx); Primary osteoarthritis involving multiple joints; Encounter for medication monitoring 07/24/2024 2:00 PM COMMERCIAL DRAFTER Office Visit [facility] [address] [place] [phone] Michael Motta MD Status post total knee replacement using cement, right (Primary Dx) 07/24/2024 1:27 PM COMMERCIAL DRAFTER - 07/24/2024 11:59 PM COMMERCIAL DRAFTER Hospital Encounter [facility] Di[facility] Imaging [address] [place] [phone] Status post total knee replacement using cement, right Discharge Disposition: Discharge to home or self care 07/24/[address] [place] [phone] Alee Elizondo PA Referral Request (/) 07/12/2024 Telephone [facility] [address] [place] [phone] Michael Motta MD ret call from Last 3 Months Immunizations Immunization Administration Dates Next Due COVID-19 mRNA ([employer]) 0.3 m L (30 mcg) vaccine (12 [...] drink = 0.6 oz pur e alcohol) [facility] Utilities Answer Date Recorded In the past 12 months has [employer], gas, oil, or water company threatened [...] often do you attend chur ch or advent services? 1 to 4 times per year 05/30/2024 Do you belong to any clubs o r organizations such as jew groups, unions, fraternal or athletic groups, or [...] 4 09/06/2023 Housing Stability Vital Sign Answer Jarrtet e Recorded In the last 12 months, was t here a time when you were not able to pay the mortgage or rent on time? No 05/30/2024 In the past 12 months, how m any times have you moved where you were living? 0 05/30/2024 At any time in the past 12 m [facility], were you homeless or living [...] on file Legal Sex Female 8:04 PM COMMERCIAL DRAFTER Gender Identity Female 02/15/2020 6:08 PM CDT [...] 2024 08/17/2023, 04/14/2023, 04/14/2023, Additional history exists Well Visit 65+ 04/11/2025 04/11/2024, 11/2023, 04/06/2023, Additional history exists Osteoporosis Screening-Bone Density Scan 04/12/2025 04/12/2023, 01/27/2017, 07/11/2014 Depression Screening 05/01/2025 05/01/2024, 04/11/2024, 01/10/2024, Additional history exists Fall Risk Assessment 06/05/2025 06/05/2024, 04/11/2024, 01/10/2024, Additional history exists Breast Cancer Screening-Mammogram 10/04/2025 10/04/2024, 08/02/2023, 05/31/2022, Additional history exists Colon Cancer Screening-Colonoscopy 07/27/2026 [...] history exists Medical Devices Implanted Type Area Environmental Projects Advisor Device Identifier Shelf Expiration Date Model / Serial / Lot [employer] Simplex P Radiopaque Full Dose Cement Bone Sterile 6191-1-010 - [id number] Implanted:Qty: 2 on 05/04/2023 by Michael Motta MD at [facility] Bone Cement Left: Knee [employer] 05/03/2025 6191-1-010 / 6191-1-001 / [id number] [employer] Simplex P Radiopaque Full Dose Cement Bone Sterile 6191-1-010 - [id number] Implanted:Qty: 2 on 05/30/2024 by Michael Motta MD at [facility] Bone Cement Right: Patella [employer] [id number] 05/03/2026 6191-1-010 / / [id number] [employer] Persona 14mm 30+ Mm Knee Tibia Taper Extension Stem [id number] - Z82-0574-293-2 4 - [id number] Implanted:Qty: 1 on 05/04/2023 by Michael Motta MD at [facility] Left: Knee [employer] [id number] 02/15/2033 [id number] / 11-0331-627- 14 / [id number] [employer] Persona Cemented Cruciate Retaining Knee Left 7 Narrow Component [id number] - X92-6990-023-7 1 - [id number] Implanted:Qty: 1 on 05/04/2023 by Michael Motta MD at [facility] Left: Knee [employer] [id number] 10/25/2032 [id number] / 81-1180-632- 01 / [id number] [employer] Baseplate Tibial Knee Cemented Left Fixed Stemmed Persona Size D Tivanium [id number] - A65-4574-454-2 1 - [id number] Implanted:Qty: 1 on 05/04/2023 by Michael Motta MD at [facility] Left: Knee [employer] [id number] 09/11/2032 [id number] / 09-7162-131- 01 / [id number] [employer] Persona 11mm Knee Left 6-7 C-D Insert Articular Vivacit-E Sterile [id number] - T65-0520-312-9 1 - [id number] Implanted:Qty: 1 on 05/04/2023 by Michael Motta MD at [facility] Left: Knee [employer] [id number] 12/28/2025 [id number] / 88-7892-102- 11 / [id number] [employer] Persona 32mm Knee Component Patellar All Poly Latex Free 83-5274-250-32 - [id number] Implanted:Qty: 1 on 05/04/2023 by Michael Motta MD at [facility] [employer] 12/19/2027 [id number] / / [id number] [employer] Baseplate Tibial Knee Cemented Right Fixed Stemmed Persona Size C Tivanium [id number] - [id number] Implanted:Qty: 1 on 05/30/2024 by Michael Motta MD at [facility] Right: Knee [employer] [id number] 03/22/2033 [id number] / / [id number] [employer] Persona 29mm Knee Component Patellar All Poly Latex Free [id number] - [id number] Implanted:Qty: 1 on 05/30/2024 by Michael Motta MD at [facility] Right: Knee [employer] [id number] 12/18/2028 [id number] / / [id number] [employer] Persona 13mm Cruciate Retain Knee Right 6-7 Cd Insert Articular Latex Free [id number] - [id number] Implanted:Qty: 1 on 05/30/2024 by Michael Motta MD at [facility] Right: Patella [employer] [id number] 05/04/2025 [id number] / / [id number] [employer] Persona Cruciate Retaining Cemented Knee Right 7 Narrow Component [id number] - [id number] Implanted:Qty: 1 on 05/30/2024 by Michael Motta MD at [facility] Right: Knee [employer] [id number] 12/27/2033 [id number] / / [id number] [employer] Persona 14mm 30+ Mm Knee Tibia Taper Extension Stem [id number] - [id number] Implanted:Qty: 1 on 05/30/2024 by Michael Motta MD at [facility] Right: Knee [employer] [id number] 04/11/2034 [id number] / / [id number] Procedures Procedure Name Priority Date/Time Associated Diagnosis Comments SCREENING MAMMOGRAM BILATERAL W DYLLAN Schedule Routine, Read Routine (OP Routine) 10/04/2024 11:00 AM CDT Breast cancer screening by mammogram POC INFLUENZA A/B, COVID-19 ANTIGEN Routine 09/25/2024 11:02 AM CDT Influenza A Acute cough XR KNEE RIGHT 3 VIEWS Schedule Routine, Read Routine (OP Routine) 09/13/2024 1:48 PM CDT Chronic pain of right knee CT ABDOMEN PELVIS W CONTRAST Schedule Routine, Read Routine (OP Routine) 08/29/2024 12:23 PM COMMERCIAL DRAFTER COMPREHENSIVE METABOLIC PANEL Routine 08/23/2024 2:11 PM COMMERCIAL DRAFTER Encounter for medication monitoring CBC WITH AUTO DIFFERENTIAL Routine 08/23/2024 2:11 PM COMMERCIAL DRAFTER Encounter for medication monitoring SCAN - LABS 08/23/2024 VITAMIN B12 Routine 08/02/2024 7:41 AM COMMERCIAL DRAFTER Fatigue, unspecified type LIPID PANEL Routine 08/02/2024 7:41 AM COMMERCIAL DRAFTER Mixed hyperlipidemia HEMOGLOBIN A1C Routine 08/02/2024 7:41 AM COMMERCIAL DRAFTER Pre-diabetes COMPREHENSIVE METABOLIC PANEL Routine 08/02/2024 7:41 AM COMMERCIAL DRAFTER Mixed hyperlipidemia CBC WITH AUTO DIFFERENTIAL Routine 08/02/2024 7:41 AM COMMERCIAL DRAFTER Fatigue, unspecified type TSH Routine 08/02/2024 7:41 AM COMMERCIAL DRAFTER Fatigue, unspecified type ERYTHROCYTE SEDIMENTATION RATE Routine 07/30/2024 2:36 PM COMMERCIAL DRAFTER 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) CRP (ACUTE PHASE) Routine 07/30/2024 2:3 6 PM COMMERCIAL DRAFTER 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) COMPREHENSIVE METABOLIC PANEL Routine 07/30/2024 2:36 PM COMMERCIAL DRAFTER Encounter for medication monitoring CBC WITH AUTO DIFFERENTIAL Routine 07/30/2024 2:36 PM COMMERCIAL DRAFTER Encounter for medication monitoring XR KNEE RIGHT 3 VIEWS Schedule Routine, Read Routine (OP Routine) 07/24/2024 1:35 PM COMMERCIAL DRAFTER Status post total knee replacement using cement, right DEXA AXIAL SKELETON BONE DENSITY 1 OR MORE SITES Schedule Routine, Read Routine (OP Routine) 04/12/2023 8:14 AM CDT COLONOSCOPY Routine 07/27/2021 HEPATITIS C ANTIBODY Routine 06/04/2020 10:29 AM COMMERCIAL DRAFTER Encounter for screening for other viral diseases Chronic fatigue from Last 3 Months or Most Recently Relevant to Health Maintenance Results * Screening Mammogram Bilateral W Dyllan (10/04/2024 11:00 AM CDT) Anatomical Region Laterality Modality Breast Bilateral Mammography Impressions 10/04/2024 11:00 AM CDT No mammographic evidence of malignancy Recommend routine screening mammogram in one year BI-RADS Category 2: Benign Findings Alee OSMAN IMG MAMMO PROCEDURES Final Result * (ABNORMAL) POC Influenza A/B, COVID-19 antigen (09/25/2024 11:02 AM CDT) Influenza A Ag, POC Positive(A) Negative [facility] Influenza B Ag, POC Negative Negative [facility] COVID-19 Ag POC Presumptive Negative Presumptive Negative, Invalid [facility] [place] [place] [facility] Nasal 09/25/2024 11:0 2 AM CDT Jessica Collins NP POINT OF CARE TEST ORDERABLES Final Result Performing Organization Address City/State/[facility] de Phone Number [facility] [address] [place] [address] * XR Knee Right 3 Views (09/13/2024 [...] John Sparrow M.D. RB T: Report ID: [id number] Reading Location: [id number] Procedure Note John Sparrow MD - 09/18/2024 [...] John Sparrow M.D. RB T: Report ID: [id number] Reading Location: [id number] Michael Motta MD IMG XR PROCEDURES Final Re sult * (ABNORMAL) CT Abdomen Pelvis W Contrast (08/29/2024 12:23 PM COMMERCIAL DRAFTER) Anatomical Region Laterality Modality Body N/A Computed Tomogra phy Historical Provider MD L[facility] CT PROCEDURES Edited Result - Final * CBC with auto differential (08/23/2024 2:11 PM COMMERCIAL DRAFTER) WBC 4.8 3.8 - 10.8 Thousand/u L [...] [facility] Blood 08/23/2024 2:11 PM COMMERCIAL DRAFTER 08/23/2024 2:11 PM COMMERCIAL DRAFTER Sangita OSMAN LAB BLOOD ORDERABLES Vy l Result [facility] [address] [place] [address] * (ABNORMAL) Comprehensive metabolic panel (08/23/2024 2:11 PM COMMERCIAL DRAFTER) [facility] Glucose 188(H) 65 - 99 [...] [facility] Blood 08/23/2024 2:11 PM COMMERCIAL DRAFTER 08/23/2024 2:11 PM COMMERCIAL DRAFTER Sangita OSMAN LAB BLOOD ORDERABLES Vy l Result [facility] [address] [facility] [place] [address] * SCAN - LABS (08/23/2024) Alee OSMAN Final Resu lt * (ABNORMAL) CBC with auto differential (08/02/2024 7:41 AM COMMERCIAL DRAFTER) WBC 4.0 3.8 - 10.8 Thousand/u L [...] [facility] Blood 08/02/2024 7:41 AM COMMERCIAL DRAFTER 08/02/2024 7:42 AM COMMERCIAL DRAFTER Alee OSMAN LAB BLOOD ORDERABLES Final Result [facility] [address] [address] * TSH (08/02/2024 7:41 AM COMMERCIAL DRAFTER) Pathologist [facility] TSH 1.57 0.40 - 4.50 mIU/L [facility] Blood 08/02/2024 7:41 AM COMMERCIAL DRAFTER 08/02/2024 7:42 AM COMMERCIAL DRAFTER Alee OSMAN LAB BLOOD ORDERABLES Final Result [facility] [address] [place] [address] * Hemoglobin A1c (08/02/2024 7:41 AM COMMERCIAL DRAFTER) [facility] Hgb A1C 5.4 <5.7 % of total Hgb [facility] Comment: For the purpose of screening for the presence of diabetes: <5.7% Consistent with the absence of diabetes 5.7-6.4% Consistent with increased risk for diabetes (prediabetes) > or =6.5% Consistent with diabetes This assay result is consistent with a decreased risk of diabetes. Currently, no consensus exists regarding use of hemoglobin A1c for diagnosis of diabetes in children. According to [place] Diabetes Association (ADA) guidelines, hemoglobin A1c <7.0% represents optimal control in non- diabetic patients. Different metrics may apply to specific patient populations. Standards of Medical Care in Diabetes(ADA). Blood 08/02/2024 7:41 AM COMMERCIAL DRAFTER 08/02/2024 7:42 AM COMMERCIAL DRAFTER Alee OSMAN LAB BLOOD ORDERABLES Final Result Performing Organization Address City/[facility]/ZIP Co de Phone Number [facility] [address] [place] [address] * Vitamin B12 (08/02/2024 7:41 AM COMMERCIAL DRAFTER) Pathologist [facility] Vitamin B12 349 200 - 1,100 pg/mL [facility] Comment: Please Note: Although the reference range for vitamin B12 is 200-1100 pg/mL, it has been reported that between 5 and 10% of patients with values between 200 and 400 pg/mL may experience neuropsychiatric and hematologic abnormalities due to occult B12 deficiency; less than 1% of patients with values above 400 pg/mL will have symptoms. Blood 08/02/2024 7:41 AM COMMERCIAL DRAFTER 08/02/2024 7:42 AM COMMERCIAL DRAFTER Alee OSMAN LAB BLOOD ORDERABLES Final Result Performing Organization Address [facility]/ZIP Co de Phone Number [facility] [address] [address] [place] [address] * Lipid panel (08/02/2024 7:41 AM COMMERCIAL DRAFTER) Pathologist [facility] Cholesterol 127 <200 mg/dL [facility] [...] factors. LDL-C is now calculated using the Barry-Parks calculation, which is a validated novel method providing better accuracy than the Friedewald equation in the estimation of LDL-C. Barry SS et al. ELAINE. 2013;310(19): 6584-3495 (http://education.[employer]/faq/QDX908) Chol/HDL ratio 1.7 <5.0 (calc) [facility] Non-HDL, (LDL+VLDL) 52 <130 mg/dL (calc) [facility] Comment: For patients with diabetes plus 1 major ASCVD risk factor, treating to a non-HDL-C goal of <100 mg/dL (LDL-C of <70 mg/dL) is considered a therapeutic option. Blood 08/02/2024 7:41 AM COMMERCIAL DRAFTER 08/02/2024 7:42 AM COMMERCIAL DRAFTER Alee OSMAN LAB BLOOD ORDERABLES Final Result Performing Organization Address City/[facility]/ZIP Co de Phone Number [facility] [address] [address] [place] [address] * Comprehensive metabolic panel (08/02/2024 7:41 AM COMMERCIAL DRAFTER) Glucose 99 65 - 99 mg/dL [facility] [...] [facility] Blood 08/02/2024 7:41 AM COMMERCIAL DRAFTER 08/02/2024 7:42 AM COMMERCIAL DRAFTER Alee OSMAN LAB BLOOD ORDERABLES Final Result ANDRIA [facility] [address] [place] [address] * CBC with auto differential (07/30/2024 2:36 PM COMMERCIAL DRAFTER) WBC 6.4 3.8 - 10.8 Thousand/u L [...] [facility] Blood 07/30/2024 2:36 PM COMMERCIAL DRAFTER 07/30/2024 2:36 PM COMMERCIAL DRAFTER Sangita OSMAN LAB BLOOD ORDERABLES Vy l Result Performing Organization Address [facility] Co de Phone Number [facility] [address] [place] [address] * Erythrocyte sedimentation rate (07/30/2024 2:36 PM COMMERCIAL DRAFTER) [facility] Erythrocyte sedimentation rate 11 < OR = 30 mm/h [facility] Blood 07/30/2024 2:36 PM COMMERCIAL DRAFTER 07/30/2024 2:36 PM COMMERCIAL DRAFTER Sangita OSMAN LAB BLOOD ORDERABLES Vy l Result Performing Organization Address [facility] Co de Phone Number [facility] [address] [place] [address] * CRP (acute phase) (07/30/2024 2:36 PM COMMERCIAL DRAFTER) [facility] C-RP <3.0 <8.0 mg/L [facility] Blood 07/30/2024 2:36 PM COMMERCIAL DRAFTER 07/30/2024 2:36 PM COMMERCIAL DRAFTER Sangita OSMAN LAB BLOOD ORDERABLES Vy l Result Performing Organization Address [facility] de Phone Number [facility] [address] [place] [address] * (ABNORMAL) Comprehensive metabolic panel (07/30/2024 2:36 PM COMMERCIAL DRAFTER) Pathologist [facility] Glucose 115(H) 65 - 99 mg/dL [facility] [...] [facility] BUN/creat ratio SEE NOTE: (calc) [facility] Comment: Not Reported: [...] [facility] Blood 07/30/2024 2:36 PM COMMERCIAL DRAFTER 07/30/2024 2:36 PM COMMERCIAL DRAFTER us Sangita OSMAN LAB BLOOD ORDERABLES Vy l Result [facility] [address] [place] [address] * XR Knee Right 3 Views (07/24/2024 1:35 PM COMMERCIAL DRAFTER) Anatomical Region Laterality Modality Lower Extremities, Knee Right Computed Radiography 07/25/2024 7:16 AM COMMERCIAL DRAFTER Narrative 07/25/2024 7:18 AM COMMERCIAL DRAFTER EXAM DESCRIPTION: XR KNEE RIGHT 3 VIEWS [...] signed by Elton CABA T: Report ID: [id number] Reading Location: [id number] Procedure Note Elton Jonas MD - 07/25/2024 [...] signed by Elton CABA T: Report ID: [id number] Reading Location: [place] [address] Michael Motta MD IMG XR PROCEDURES Final Re sult * (ABNORMAL) Dexa Axial Skeleton Bone Density 1 or 2 Site (04/12/2023 8:14 AM CDT) Anatomical Region Laterality Modality Body N/A Radiographic Melanie ging Historical Provider IMG DXA PROCEDURES Edited Result - Final * Colonoscopy (07/27/2021) Anatomical Region Laterality Modality Other Historical Provider ENDOSCOPY PROCEDURES Vy l Result * Hepatitis C antibody (06/04/2020 10:29 AM COMMERCIAL DRAFTER) Hep C Ab NON-REACTI VE NON-REACT ALEXYS [facility] SIGNAL TO CUT-OFF 0.02 <1.00 [facility] Comment: HCV antibody was non-reactive. There is no laboratory evidence of HCV infection. In most cases, no further action is required. However, if recent HCV exposure is suspected, a test for HCV RNA (test code 12633) is suggested. For additional information please refer to http://education.[employer]/faq/BQQ95l4 (This link is being provided for informational/ educational purposes only.) Blood specimen (specimen) 06/04/2020 10:29 AM COMMERCIAL DRAFTER 06/04/2020 10:30 AM COMMERCIAL DRAFTER Sangita OSMAN LAB MICROBIOLOGY - GENERA L ORDERABLES Final Result [facility] [address] [place] [address] from Last 3 Months or Most Recently Relevant to Health Maintenance Insurance [facility]IC[facility] Address: [address] [address] [place] [address] Advance Directives For more information, please contact: [phone] Documents on File Type Date Recorded Patient Changeover Operator Expl anation ADVANCE DIRECTIVE 05/17/2024 2:13 PM Yonis r of Materials Planning Analyst-Medical * Full Code (Latest Code Status on File) Date Activated Date Inactivated Comments 05/30/2024 12:38 PM 06/05/2024 6:31 PM * Full Code Date Activated Date Inactivated Comments 05/04/2023 2:33 PM 05/07/2023 3:07 AM * Full Code Date Activated Date Inactivated Comments 03/22/2021 4:39 PM 03/25/2021 6:17 PM Care Teams Rfid Systems Architect Relationship Specialty Start Date End Date Alee Elizondo PA [address] [place] [address] PCP - General Internal Medicine 07/05/23 Sharan Linotn MD Referring Physician Gastroenterology 10/31/18 Martha Starks MD Consulting Physician Cardiology 12/24/20 Shama Hines MD [address] [facility], [address] [address] Consulting Physician Pain Management 01/19/21 Artis Grewal MD [address] [place] [address] Consulting Physician Rheumatology 01/30/21 Amy Mayes NP [address] [facility] [address] [address] Nurse Practitioner Cardiovascular Disease 04/20/24 Shailesh Dunn MD [address] [address] Consulting Physician Pulmonary Disease 04/20/24 Sangita Farrar PA [address] [place] [address] Physician Crm Solution Architect Rheumatology 05/15/24
--- OUTSIDE RECORDS SUMMARY | 2024-10-07 11:16 | XMS_ITS | Encounter Summary ---
Author Organization [facility] Healthcare Address [address] [place] [address] Care Team Providers Care Ice Cream Vault Worker Name Role Phone Sharan Linton MD Unavailable [phone] Martha Starks MD Unavailable [phone] Shama Hines MD Unavailable Artis Grewal MD Unavailable [phone] Alee Elizondo Primary Care Provider [phone] Amy Mayes NP Unavailable [phone] Shailesh Dunn MD Unavailable [phone] Sangita Farrar Unavailable [phone] Encounter Details Date Type Department Care Team (Late st Contact Info) Description 09/04/2024 Results Follow-Up [facility] Medical Group Family Medicine [address] [facility] [address] [place] [address] Alee Elizondo PA [address] [place] [address] Social History Tobacco Use Types Packs/Day Years Used Date Smoking Tobacco: Never Smokeless Tobacco: Never Comments:Never used Alcohol Use Standard Drinks/Week Comments No 0 (1 standard drink = 0.6 oz pur e alcohol) [facility] Utilities Answer Date Recorded In the past 12 months has [employer], oil, or water [employer] threatened to shut off services in your [...] often do you attend chur ch or temple services? 1 to 4 times per year 05/30/2024 Do you belong to any clubs o r organizations such as uatsdin groups, unions, fraternal or athletic groups, or [...] time in the past 12 m [facility], were you homeless or living [...] file Legal Sex Female 8:04 PM DIRECTOR CAMP Gender Identity Female 02/15/2020 6:08 PM CDT [...] documented as of this encounter Care Teams Ice Cream Vault Worker Relationship Specialty [place] [address] [place] [address] PCP - General Internal Medicine 07/05/23 Sharan Linton MD Referring Physician Gastroenterology 10/31/18 Martha Starks MD Consulting Physician Cardiology 12/24/20 Shama Hines MD [address] [facility], [address] [address] Consulting Physician Pain Management 01/19/21 Artis Grewal MD [address] [place] [address] Consulting Physician Rheumatology 01/30/21 Amy Mayes NP [address] [address] Nurse Practitioner Cardiovascular Disease 04/20/24 Shailesh Dunn MD [address] [address] Consulting Physician Pulmonary Disease 04/20/24 Sangita Farrar PA [address] [place] [address] Physician Nailhead Puncher Rheumatology 05/15/24 documented as of this encounter
--- OUTSIDE RECORDS SUMMARY | 2024-10-07 11:16 | XMS_ITS | Clinical Summary ---
Author Organization [email or web address] Address [address] [facility] [place] [address] Care Team Providers Care Support Team Assoc Name Role Phone Darvin Harden MD Primary Care Provider [phone] Source Comments [email or web address],non-owned Affiliates and Associated Physician Practices is amultiple site organization consisting of ambulatory clinics and hospital sitesin [place], [place], [place] and [place]. This disclosure is being madepursuant to the Care Everywhere program and may not contain all information available regarding this patient. Last updated 18.[email or web address] Allergies Active Allergy Reactions Criticality Noted Date [...] fluticasone propionate (Flonase) 50 MCG/ACT nasal spray [place] 2 (two) sprays into the nose once [...] age to complete this topic Care Teams Support Team Assoc Relationship Specialty Start Date End Date Darvin Harden MD [address] [place] [address] PCP - General 07/11/19
--- OUTSIDE RECORDS SUMMARY | 2024-10-07 11:16 | XMS_ITS | Continuity of Care Document ---
Author Organization [facility] Address [address] [place] [address] [place] [address] Phone Care Team Providers Care Cigar Head Perforator Name Role Phone Oswald No DO Unavailable Unavailable Advance Directives Directive Yes / No Effective Date File Name No Information Encounters Encounter Description Practice Location Reason(s) For Visit Diagnoses Date Provider Providers Copied on Encounter [facility], [address] [place] [address] [address], [place], [place], [id number], [place] tel:[phone] [facility] No Information Oneal Combs. [address] [facility], [place], [address], [place]. tel: [phone] Family History Family Member Type Diagnosis Age [...]
--- OUTSIDE RECORDS SUMMARY | 2024-10-07 11:16 | XMS_ITS | Encounter Summary ---
Author Organization [facility] Facility Care Team Providers Care Hand Miter Operator Name Role Phone Alee Elizondo Primary Care Provider + [phone] Sharan Linton MD Unavailable +[phone] Taisha Gomez MD Unavailable +[phone] Parag Soto MD Unavailable +[phone] RaziaMartha singh MD Unavailable +[phone] Puneet Uribe MD Unavailable +[phone] Shama Hines MD Unavailable Artis Grewal MD Unavailable +[phone] Harrison Pena RN Unavailable +[phone] Nafisa Gregg RN Unavailable +[phone] Tho Kelsey MD Primary Care Provider +[phone] Alee Elizondo Primary Care Provider + [phone] Amy Mayes NP Unavailable +[phone] Shailesh Dunn MD Unavailable +[phone] Sangita Farrar Unavailable +[phone] Encounter Details Date Type Department Care Team (Latest Contact Info) Description 04/19/2016 Orders Only [facility]G CLINCONV Provider, MD Tania [address] [place] [address] Social History Tobacco Use Types Packs/Day Years Used Date Smoking Tobacco: Never Alcohol Use Standard Drinks/Week Comments No 0 (1 standard drink = 0.6 oz pur e alcohol) Comments Unknown Sex and Gender Information Value Date Recorded Sex Assigned at Not on file Legal Sex Female 8:04 PM RANGE RIDER Gender Identity Female 02/15/2020 6:08 PM CDT [...] COVID: Suspected 08/13/2021 08/14/2021 08/14/2021 3:06 AM RANGE RIDER COVID: Suspected 08/14/2021 08/14/2021 08/15/2021 3:05 AM RANGE RIDER COVID: Suspected 08/14/2021 08/14/2021 08/15/2021 6:25 AM RANGE RIDER COVID: Suspected 06/02/2023 06/02/2023 06/02/2023 7:25 PM RANGE RIDER COVID: Suspected 07/26/2023 07/26/2023 07/26/2023 3:10 PM RANGE RIDER COVID: Suspected 09/25/2024 09/25/2024 09/25/2024 11:03 AM CDT Influenza, adult 09/25/2024 09/25/2024 10/02/2024 3:05 AM CDT documented as of this encounter Care Teams Hand Miter Operator Relationship Specialty Start Date End Date Alee Elizondo PA [address] [facility] 500 [place] [address] PCP - General Internal Medicine 02/01/17 06/29/23 Tho Kelsey MD [address] [place] [address] DR [facility] 300 [place] [address] PCP - General Family Medicine 06/30/23 07/04/23 Alee Elizondo PA [address] [place] [address] [place] [address] PCP - General Internal Medicine 07/05/23 Sharan Linton MD [address] [place] [address] [place] [address] Referring Physician Gastroenterology 10/31/18 Taisha Gomez MD [address] [place] [address] [place] [address] Referring Physician Pulmonary Disease 10/31/18 12/23/20 Parag Soto MD [address] [place] [address] [place] [address] Referring Physician Rheumatology 10/31/18 12/23/20 Martha Starks MD [address] [place] [address] [place] [address] Consulting Physician Cardiology 12/24/20 Puneet Uribe MD [address] [facility] [address] [place] [address] Consulting Physician Rheumatology 12/24/20 01/29/21 Shama Hines MD 4700 [facility], [facility] 230 [place] [address] Consulting Physician Pain Management 01/19/21 Artis Grewal MD [address] [place] [address] Consulting Physician Rheumatology 01/30/21 Harrison Pena, JULIUS [address] [place] [address] Loan Inspector 05/30/23 09/04/23 Nafisa Gregg, JULIUS [address] [place] [address] [place] [address] [place] [address] Loan Inspector 06/06/23 06/12/23 Amy Mayes NP [address] [address] Nurse Practitioner Cardiovascular Disease 04/20/24 Shailesh Dunn MD 4600 [facility] 200 [place] [address] Consulting Physician Pulmonary Disease 04/20/24 Sangita Farrar PA [address] [place] [address] Physician Commercial Airline Pilot Rheumatology 05/15/24 documented as of this encounter
--- OUTSIDE RECORDS SUMMARY | 2024-10-07 11:16 | XMS_ITS | Continuity of Care Document ---
Author Organization [facility] Address [address] [place] [address] [address] [place] [address] Phone Care Team Providers Care Float Tender Name Role Phone Torsten Ramesh Unavailable Unavailable [...] Diagnoses Date Provider Providers Copied on Encounter [facility], [address] [facility] [address], [place], [place], [id number], [place] tel:[phone] [place] No Information 0 5 Muehl Torsten. [address] [facility], [address], [place], [address], [place]. tel: [phone] Referring Provider: Alee Elizondo, [address] [place] [address] [address], [place], [address]. tel:[phone] [facility] [address] [facility] [address], [place], [place], [id number], [place] tel:[phone] [place] No Information 0 4 Muehl Torsten. [address] [place] [address], [address], [place], [address], [place]. tel: [phone] Referring Provider: Alee Elizondo, [address] [place] [address] [address], [place], [address]. tel:[phone] [place] [address] [facility] [address], [place], [place], [id number], [place] tel:[phone] [place] No Information 0 4 Muehl Torsten. [address] [place] [address], [address], [place], [address], [place]. tel: [phone] Referring Provider: Alee Elizondo, [address] [place] [address] Road [address], [place], [address]. tel:[phone] [facility] [address] [facility] [address], [place], [place], [id number], [place] tel:[phone] [place] No Information 2 4 Muehl Torsten. [address] [place] [address], [address], [place], [address], [place]. tel: [phone] Referring Provider: Alee Elizondo, [address] [facility] [address], [place], [address]. tel:[phone] [facility] [facility] [address], [place], [id number], [place] tel:[phone] [place] No Information 4 Muehl Torsten. [address] [facility], [facility] [address], [place], [facility], . tel: [phone] Referring Provider: Alee Elizondo, [address] [place] [address] Road [address], [place], [address]. tel:[phone] [facility] [facility] [address], [place], [id number], [place] tel:[phone] [place] No Information Phill Torsten. [address] [place] [address], [address], [place], [facility], [place]. tel: [phone] Referring Provider: Alee Elizondo, [address] [place] [address] Road [address], [place], [address]. tel:[phone] [facility] [facility] [address], [place], [id number], [place] tel:[phone] [place] No Information Phill Torsten. [address] [place] [address], [address], [place], [facility], [place]. tel: [phone] Referring Provider: Alee Elizondo, [address] [place] [address] Road [address], [place], [address]. tel:[phone] [facility] [facility] [address], [place], [id number], [place] tel:[phone] [place] Lumbago 4 Muehl Torsten. [address] [facility], [address], [place], [address], [place]. tel: [phone] Referring Provider: Alee Elizondo, [facility] [facility] [address], [place], [address]. tel:[phone] Family History Family Member Type Diagnosis Age At Onset No Information Payers Payer name Insurance type Covered alliance party ID Authoriza tion(s) No Information Social [...]
--- OUTSIDE RECORDS SUMMARY | 2024-10-07 11:16 | XMS_ITS | Encounter Summary ---
Author Organization [facility] Facility Care Team Providers Care Director Medicare Sales Name Role Phone Alee Elizondo Primary Care Provider + [phone] Sharan Linton MD Unavailable [phone] Taisha Gomez MD Unavailable +[phone] Parag Soto MD Unavailable [phone] RaziaMartha singh MD Unavailable [phone] Puneet Uribe MD Unavailable +[phone] Shama Hines MD Unavailable Artis Grewal MD Unavailable [phone] Harrison Pena RN Unavailable +[phone] Nafisa Gregg RN Unavailable +[phone] Tho Kelsey MD Primary Care Provider [phone] Alee Elizondo Primary Care Provider + [phone] Amy Mayes NP Unavailable +[phone] Shailesh Dunn MD Unavailable +[phone] Sangita Farrar Unavailable +[phone] Encounter Details Date Type Department Care Team (Latest Contact Info) Description 03/24/2016 Orders Only MMG CLINCONV Provider, MD Tania [address] [place] [address] Social History Tobacco Use Types Packs/Day Years Used Date Smoking Tobacco: Never Alcohol Use Standard Drinks/Week Comments No 0 (1 standard drink = 0.6 oz pur e alcohol) Comments Unknown Sex and Gender Information Value Date Recorded Sex Assigned at Not on file Legal Sex Female 8:04 PM AIR ANALYSIS 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 Gender Identity Female 02/15/2020 6:08 [...] COVID: Suspected 08/13/2021 08/14/2021 08/14/2021 3:06 AM AIR ANALYSIS 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 COVID: Suspected 08/14/2021 08/14/2021 08/15/2021 3:05 AM AIR ANALYSIS 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 COVID: Suspected 08/14/2021 08/14/2021 08/15/2021 6:25 AM AIR ANALYSIS 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 COVID: Suspected 06/02/2023 06/02/2023 06/02/2023 7:25 PM AIR ANALYSIS 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 COVID: Suspected 07/26/2023 07/26/2023 07/26/2023 3:10 PM AIR ANALYSIS 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 COVID: Suspected 09/25/2024 09/25/2024 09/25/2024 11:03 AM CDT Influenza, adult 09/25/2024 09/25/2024 10/02/2024 3:05 AM CDT documented as of this encounter Care Teams Director Medicare Sales Relationship Specialty Start Date End Date Alee Elizondo PA 1095 [facility] 500 [place] [address] PCP - General Internal Medicine 02/01/17 06/29/23 Tho Kelsey MD [address] [place] [address] DR [facility] 300 [place] [address] PCP - General Family Medicine 06/30/23 07/04/23 Alee Elizondo PA [address] [place] [address] [place] [address] PCP - General Internal Medicine 07/05/23 Sharan Linton MD [address] [place] [address] [place] [address] Referring Physician Gastroenterology 10/31/18 Taisha Gomez MD [address] [place] [address] [place] [address] Referring Physician Pulmonary Disease 10/31/18 12/23/20 Parag Soto MD [address] [place] [address] [place] [address] Referring Physician Rheumatology 10/31/18 12/23/20 Martha Starks MD [address] [place] [address] [place] [address] Consulting Physician Cardiology 12/24/20 Puneet Uribe MD [address] [facility] [address] [place] [address] Consulting Physician Rheumatology 12/24/20 01/29/21 Shama Hines MD 4700 [facility], [facility] 230 [place] [address] Consulting Physician Pain Management 01/19/21 Artis Grewal MD [address] [place] [address] Consulting Physician Rheumatology 01/30/21 Harrison Pena, JULIUS [address] [place] [address] Scrap Iron Cutter 05/30/23 09/04/23 Nafisa Gregg, JULIUS [address] [place] [address] [place] [address] [place] [address] Scrap Iron Cutter 06/06/23 06/12/23 Amy Mayes NP [address] [address] Nurse Practitioner Cardiovascular Disease 04/20/24 Shailesh Dunn MD 4600 [facility] 200 [place] [address] Consulting Physician Pulmonary Disease 04/20/24 Sangita Farrar PA [address] [place] [address] Physician Lumber Inspector Rheumatology 05/15/24 documented as of this encounter
--- OUTSIDE RECORDS SUMMARY | 2024-10-07 11:16 | XMS_ITS | Encounter Summary ---
Author Organization [facility] Facility Care Team Providers Care Flatwork Supervisor Name Role Phone Alee Elizondo Primary Care Provider + [phone] Sharan Linton MD Unavailable +[phone] Taisha Gomez MD Unavailable +[phone] Parag Soto MD Unavailable [phone] [facility] MD Unavailable +[phone] Puneet Uribe MD Unavailable +[phone] Shama Hines MD Unavailable Artis Grewal MD Unavailable [phone] Harrison Pean RN Unavailable +[phone] Nafisa Gregg RN Unavailable [phone] Tho Kelsey MD Primary Care Provider +[phone] Alee Elizondo Primary Care Provider + [phone] Amy Mayes NP Unavailable +[phone] Shailesh Dunn MD Unavailable +[phone] Sangita Farrar Unavailable +[phone] Encounter Details Date Type Department Care Team (Latest Contact Info) Description 09/29/2015 Orders Only MMG CLINCONV Provider, MD Tania [address] [place] [address] Social History Tobacco Use Types Packs/Day Years Used Date Smoking Tobacco: Never Assessed Comments Unknown Sex and Gender Information Value Date Recorded Sex Assigned at Not on file Legal Sex Female 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 DRIVER Gender Identity Female 02/15/2020 6:08 PM CDT [...] COVID: Suspected 08/13/2021 08/14/2021 08/14/2021 3:06 AM COURIER DRIVER COVID: Suspected 08/14/2021 08/14/2021 08/15/2021 3:05 AM COURIER DRIVER COVID: Suspected 08/14/2021 08/14/2021 08/15/2021 6:25 AM COURIER DRIVER COVID: Suspected 06/02/2023 06/02/2023 06/02/2023 7:25 PM COURIER DRIVER COVID: Suspected 07/26/2023 07/26/2023 07/26/2023 3:10 PM COURIER DRIVER COVID: Suspected 09/25/2024 09/25/2024 09/25/2024 11:03 AM CDT Influenza, adult 09/25/2024 09/25/2024 10/02/2024 3:05 AM CDT documented as of this encounter Care Teams Flatwork Supervisor Relationship Specialty Start Date End Date Alee Elizondo PA 1095 [facility] 500 [place] [address] PCP - General Internal Medicine 02/01/17 06/29/23 Tho Kelsey MD [address] [place] [address] DR [facility] 300 [place] [address] PCP - General Family Medicine 06/30/23 07/04/23 Alee Elizondo PA [address] [place] [address] [place] [address] PCP - General Internal Medicine 07/05/23 Sharan Linton MD [address] [place] [address] [place] [address] Referring Physician Gastroenterology 10/31/18 Taisha Gomez MD [address] [place] [address] [place] [address] Referring Physician Pulmonary Disease 10/31/18 12/23/20 Praag Soto MD [address] [place] [address] [place] [address] Referring Physician Rheumatology 10/31/18 12/23/20 Martha Starks MD [address] [place] [address] [place] [address] Consulting Physician Cardiology 12/24/20 Puneet Uribe MD [address] [facility] 110 [place] [address] Consulting Physician Rheumatology 12/24/20 01/29/21 Shama Hines MD 4700 [facility], [facility] 230 [place] [address] Consulting Physician Pain Management 01/19/21 Artis Grewal MD [address] [place] [address] Consulting Physician Rheumatology 01/30/21 Harrison Pena, JULIUS [address] [place] [address] Tire Mold Engraver 05/30/23 09/04/23 Nafisa Gregg RN [address] [place] [address] 300 [place] [address] Tire Mold Engraver 06/06/23 06/12/23 Amy Mayes NP [address] [address] Nurse Practitioner Cardiovascular Disease 04/20/24 Shailesh Dunn MD [address] [address] Consulting Physician Pulmonary Disease 04/20/24 Sangita Fararr PA [address] [place] [address] Physician Foster Winder Rheumatology 05/15/24 documented as of this encounter
--- OUTSIDE RECORDS SUMMARY | 2024-10-07 11:16 | XMS_ITS | Encounter Summary ---
Author Organization [facility] Address [address] [place] [address] Phone Care Team Providers Care Sign Painter Name Role Phone Sharan Linton MD Unavailable [phone] Martha Starks MD Unavailable [phone] Shama Hines MD Unavailable Artis Grewal MD Unavailable [phone] Alee Elizondo Primary Care Provider [phone] Amy Mayes NP Unavailable +[phone] Shailesh Dunn MD Unavailable [phone] Sangita Farrar Unavailable +[phone] Encounter Details Date Type Department Care Team (Late st Contact Info) Description 08/24/2024 Results Follow-Up [facility] [address] [place] [address] Sangita Farrar PA [address] [place] [address] Social History Tobacco Use Types Packs/Day Years Used Date Smoking Tobacco: Never Smokeless Tobacco: Never Comments:Never used Alcohol Use Standard Drinks/Week Comments No 0 (1 standard drink = 0.6 oz pur e alcohol) [facility] Utilities Answer Date Recorded In the [...] often do you attend chur ch or catholic services? 1 to 4 times per year 05/30/2024 Do you belong to any clubs o r organizations such as mosque groups, unions, fraternal or athletic groups, or [...] any time in the past 12 m [facility], were you homeless or living in [...] on file Legal Sex Female 8:04 PM METROLOGIST Gender Identity Female 02/15/2020 6:08 PM CDT [...] documented as of this encounter Care Teams Sign Painter Relationship Specialty Start Date End Date Alee Elizondo PA 1095 [facility] 500 [place] [address] PCP - General Internal Medicine 07/05/23 Sharan Linton MD Referring Physician Gastroenterology 10/31/18 Martha Starks MD Consulting Physician Cardiology 12/24/20 Shama Hines MD 4700 [facility] [address] Consulting Physician Pain Management 01/19/21 Artis Grewal MD [address] [place] [address] Consulting Physician Rheumatology 01/30/21 Amy Mayes NP [address] [address] Nurse Practitioner Cardiovascular Disease 04/20/24 Shailesh Dunn MD [address] [facility] [address] [address] Consulting Physician Pulmonary Disease 04/20/24 Sangita Farrar PA [address] [place] [address] Physician Gambling Box Person Rheumatology 05/15/24 documented as of this encounter
--- OUTSIDE RECORDS SUMMARY | 2024-10-07 11:16 | XMS_ITS | Encounter Summary ---
Author Organization [facility] Healthcare Address [address] [place] [address] Care Team Providers Care Pin Setter Name Role Phone Sharan Linton MD Unavailable [phone] Martha Starks MD Unavailable [phone] Shama Hines MD Unavailable Artis Grewal MD Unavailable +[phone] Alee Elizondo Primary Care Provider [phone] Amy Mayes NP Unavailable +[phone] Shailesh Dunn MD Unavailable [phone] Sangita Farrar Unavailable [phone] Reason for Visit * Reason Onset Date Comments Medical Question/Miscellaneous 09/25/2024 Encounter Details Date Type Department Care Team (Late st Contact Info) Description 09/25/2024 Results Follow-Up [facility] Medical Group Family Medicine [address] [facility] [address] [place] [address] Alee Elizondo PA [address] [facility] [address] [place] [address] [place] [address] Social History Tobacco Use Types Packs/Day Years Used Date Smoking Tobacco: Never Smokeless Tobacco: Never Comments:Never used Alcohol Use Standard Drinks/Week Comments No 0 (1 standard drink = 0.6 oz pur e alcohol) [facility] Utilities Answer Date Recorded In [...] any time in the past 12 m [facility], were you homeless or living in [...] file Legal Sex Female 8:04 PM 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 Gender Identity Female 02/15/2020 6:08 PM CDT [...] documented as of this encounter Care Teams Pin Setter Relationship Specialty Start Date End Date Alee Elizondo PA [address] [facility] 500 [place] [address] PCP - General Internal Medicine 07/05/23 Sharan Linton MD Referring Physician Gastroenterology 10/31/18 Martha Starks MD Consulting Physician Cardiology 12/24/20 Shama Hines MD 4700 [facility] [address] Consulting Physician Pain Management 01/19/21 Artis Grewal MD [address] [place] [address] Consulting Physician Rheumatology 01/30/21 Amy Mayes NP [address] [facility] [address] [place] [address] [address] [place] [address] Nurse Practitioner Cardiovascular Disease 04/20/24 Shailesh Dunn MD [address] [address] Consulting Physician Pulmonary Disease 04/20/24 Sangita Farrar PA [address] [place] [address] Physician Bacteriologist Food Rheumatology 05/15/24 documented as of this encounter
--- OUTSIDE RECORDS SUMMARY | 2024-10-07 11:16 | XMS_ITS | Encounter Summary ---
Author Organization [facility] Facility Care Team Providers Care Cleaner Name Role Phone Alee Elizondo Primary Care Provider + [phone] Sharan Linton MD Unavailable [phone] Taisha Gomez MD Unavailable [phone] Parag Soto MD Unavailable [phone] RaziaMartha singh MD Unavailable [phone] Puneet Uribe MD Unavailable +[phone] Shama Hines MD Unavailable Artis Grewal MD Unavailable [phone] Harrison Pena RN Unavailable +[phone] Nafisa Gregg RN Unavailable +[phone] Tho Kelsey MD Primary Care Provider [phone] Alee Elizondo Primary Care Provider + [phone] Amy Mayes NP Unavailable +[phone] Shailesh Dunn MD Unavailable [phone] Sangita Farrar Unavailable +[phone] Encounter Details Date Type Department Care Team (Latest Contact Info) Description 11/04/2015 Orders Only [facility] CLINCONV Provider, MD Tania [address] [place] [address] Social History Tobacco Use Types Packs/Day Years Used Date Smoking Tobacco: Never Assessed Comments Unknown Sex and Gender Information Value Date Recorded Sex Assigned at Not on file Legal Sex Female 8:04 PM 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 Gender Identity Female 02/15/2020 6:08 PM CDT [...] COVID: Suspected 08/13/2021 08/14/2021 08/14/2021 3:06 AM EYEWEAR 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 COVID: Suspected 08/14/2021 08/14/2021 08/15/2021 3:05 AM EYEWEAR 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 COVID: Suspected 08/14/2021 08/14/2021 08/15/2021 6:25 AM EYEWEAR 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 COVID: Suspected 06/02/2023 06/02/2023 06/02/2023 7:25 PM EYEWEAR 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 COVID: Suspected 07/26/2023 07/26/2023 07/26/2023 3:10 PM EYEWEAR 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 COVID: Suspected 09/25/2024 09/25/2024 09/25/2024 11:03 AM CDT Influenza, adult 09/25/2024 09/25/2024 10/02/2024 3:05 AM CDT documented as of this encounter Care Teams Cleaner Relationship Specialty Start Date End Date Alee Elizondo PA 1095 [facility] 500 [place] [address] PCP - General Internal Medicine 02/01/17 06/29/23 Tho Kelsey MD [address] [place] [address] DR [facility] 300 [place] [address] PCP - General Family Medicine 06/30/23 07/04/23 Alee Elizondo PA [address] [place] [address] [place] [address] PCP - General Internal Medicine 07/05/23 Sharan Linton MD [address] [place] [address] [place] [address] Referring Physician Gastroenterology 10/31/18 Taisha Gomez MD [address] [place] [address] [place] [address] Referring Physician Pulmonary Disease 10/31/18 12/23/20 Parag Soto MD [address] [place] [address] [place] [address] Referring Physician Rheumatology 10/31/18 12/23/20 Martha Starks MD [address] [place] [address] [place] [address] Consulting Physician Cardiology 12/24/20 Puneet Uribe MD [address] [facility] [address] [place] [address] Consulting Physician Rheumatology 12/24/20 01/29/21 Shama Hines MD 4700 [facility], [facility] 230 [place] [address] Consulting Physician Pain Management 01/19/21 Artis Grewal MD [address] [place] [address] Consulting Physician Rheumatology 01/30/21 Harrison Pena, JULIUS [address] [place] [address] Occupational Ther 05/30/23 09/04/23 Nafisa Gregg RN [address] [place] [address] 300 [place] [address] Occupational Ther 06/06/23 06/12/23 Amy Mayes NP [address] [address] Nurse Practitioner Cardiovascular Disease 04/20/24 Shailesh Dunn MD [address] [address] Consulting Physician Pulmonary Disease 04/20/24 Sangita Farrar PA [address] [place] [address] Physician Crew Member Rheumatology 05/15/24 documented as of this encounter
--- OUTSIDE RECORDS SUMMARY | 2024-10-07 11:16 | XMS_ITS | Referral Summary ---
Author Organization [facility] [address] Address [address] [place] [address] Care Team Providers Care Clinical Reimbursement Specialist Name Role Phone Sharan Linton MD Unavailable [phone] Martha Starks MD Unavailable [phone] Shama Hinse MD Unavailable Artis Grewal MD Unavailable [phone] Alee Elizondo Primary Care Provider [phone] Amy Mayes NP Unavailable [phone] Shailesh Dunn MD Unavailable [phone] Sangita Farrar Unavailable [phone] Encounters Date Type Department Care Team Description 10/04/2024 Results Follow-Up [facility] [address] [place] [address] Road [address] [place] [address] Alee Elizondo PA 10/04/2024 Orders Only [facility] [address] [place] [address] Road [address] [place] [address] Provider, MD Tania 10/03/2024 Telephone [facility] [address] [place] [address] Alee Elizondo PA 09/26/2024 Orders Only [facility] [address] [facility] [address] [place] [address] Alee Elizondo PA Breast cancer screening by mammogram (Primary Dx) 09/25/2024 Results Follow-Up [facility] [address] [place] [address] [address] [place] [address] Alee Elizondo PA 09/25/2024 11:00 AM CDT Office Visit [facility] Care at [address] [phone] Jessica Collins NP Influenza A (Primary Dx); Acute cough 09/20/2024 Telephone [facility] Orthopedics and Sports Medicine [address] [place] [address] [place] [phone] Michael Motta MD med clarification 09/20/2024 8:00 AM CDT Office Visit [facility] Cardiology [address] [place] [phone] Devika Marin MD Venous insufficiency (chronic) (peripheral) (Primary Dx); Mixed hyperlipidemia 09/14/[address] [phone] Codi Branham 09/13/2024 1:44 PM CDT - 09/13/2024 11:59 PM CDT Hospital Encounter [facility] Diag Imaging [address] [place] [address] Chronic pain of right knee Discharge Disposition: Discharge to home or self care 09/13/2024 2:45 PM CDT Office Visit [facility] Orthopedics and Sports Medicine [address] [place] [address] [place] [phone] Michael Motta MD Chronic pain of right knee (Primary Dx); History of total knee arthroplasty, right 09/04/2024 Results Follow-Up [facility] [address] [place] [address] [place] [phone] Alee Elizondo PA 08/31/[address] [place] [phone] Alee Elizondo PA Medical Question/Miscellaneou s 08/31/2024 Orders Only [address] [address] Provider, MD Tania 08/29/2024 Nurse Triage [address] [phone] Alee Elizondo PA 08/29/[address] [address] Shailesh Dunn MD Med Refill (Ropinirol HCL 0.5MG tab) 08/24/2024 Results Follow-Up [address] [phone] Sangita Farrar PA 08/23/2024 Orders Only [facility] Information Management [address] [place] [address] Alee Elizondo PA 08/23/[address] [phone] Sangita Farrar PA Orencia Approved 08/23/2024 11:30 AM WAREHOUSE WORKER Office Visit [address] [phone] Sangita Farrar PA 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) (Primary Dx); Primary osteoarthritis involving multiple joints; Encounter for medication monitoring 08/21/[address] [phone] Codi Branham 08/02/2024 Telephone [facility] Pulmonary [address] [phone] Shailesh Dunn MD Orders Only 08/02/2024 11:45 AM WAREHOUSE WORKER Office Visit [facility] Pulmonary [place] [address] [facility] [address] [place] [phone] Magaly Snider NP OWEN on CPAP (Primary Dx); OWEN (obstructive sleep apnea); PLMD (periodic limb movement disorder) 08/01/2024 Orders Only [address] [place] [phone] Alee Elizondo PA Pre-diabetes (Primary Dx); Mixed hyperlipidemia; Fatigue, unspecified type 07/30/2024 9:00 AM WAREHOUSE WORKER Office Visit [address] [phone] Sangita Farrar PA 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) (Primary Dx); Primary osteoarthritis involving multiple joints; Encounter for medication monitoring 07/24/2024 1:27 PM WAREHOUSE WORKER - 07/24/2024 11:59 PM WAREHOUSE WORKER Hospital Encounter [facility] Diag Imaging [address] [place] [address] Status post total knee replacement using cement, right Discharge Disposition: Discharge to home or self care 07/24/[address] [phone] Alee Elizondo PA Referral Request (/) 07/24/2024 2:00 PM WAREHOUSE WORKER Office Visit [facility] Orthopedics and Sports Medicine [address] [place] [phone] Michael Motta MD Status post total knee replacement using cement, right (Primary Dx) 07/12/2024 Telephone [facility] Orthopedics and Sports Medicine [address] [place] [phone] Michael Motta MD ret call from Last [...] 05/07/20 Assessment & Plan (05/07/2024 8:57 PM WAREHOUSE WORKER): I have examined this patient and ordered [...] She has had evaluation by Urology at [facility] and has been told there [...] 08/03/2023 Assessment & Plan (05/07/2024 8:56 PM WAREHOUSE WORKER): Discussed the patient's BMI. The BMI is [...] provided. Assessment & Plan (09/06/2023 9:38 AM WAREHOUSE WORKER): Discussed the patient's BMI. The BMI is above average. BMI management plan is completed. BMI Follow-up includes: nutrition counseling, exercise counseling and education provided. Patient has an obesity-related condition (not limited to: hypertension, obstructive sleep apnea, osteoarthritis, hyperlipidemia, diabetes, etc.). Therefore, morbid obesity may be documented for patients with a BMI between 35.00-39.99. Assessment & Plan (08/07/2023 7:51 PM WAREHOUSE WORKER): Discussed the patient's BMI. The BMI is above average. BMI management plan is completed. BMI Follow-up includes: nutrition counseling, exercise counseling and education provided. Patient has an obesity-related condition (not limited to: hypertension, obstructive sleep apnea, osteoarthritis, hyperlipidemia, diabetes, etc.). Therefore, morbid obesity may be documented for patients with a BMI between 35.00-39.99. Assessment & Plan (08/03/2023 7:45 AM WAREHOUSE WORKER): Discussed the patient's BMI. The BMI is above average. BMI management plan is completed. BMI Follow-up includes: nutrition counseling, exercise counseling and education provided. Primary osteoarthritis of right knee 07/08/2023 Assessment & Plan (05/07/2024 8:56 PM WAREHOUSE WORKER): Patient has arthritis in the right knee. Planning a total knee replacement with Dr. Alexus Motta on May 30 Assessment & Plan (08/03/2023 8:28 AM WAREHOUSE WORKER): Continue per ortho. She is seeing some improvement but it is difficult to know if the knee is rheumatoid versus osteo versus other etiology. Will await recommendations from JACQUI Raya but definitely encouraged her to become active as soon as possible. Status post total knee replacement using cement, right 05/19/2023 Assessment & Plan (06/02/2023 4:56 PM WAREHOUSE WORKER): Status post total knee replacement with Dr. Ge Sexton 04 May. She has just been released from rehab following up for her TCM visit. She appears to have an area of cellulitis at the incision site. She is also complaining of increased pain. Will check CBC CMP and inflammatory markers along with an x-ray. She plans to go to [facility] for the workup. Will follow up [...] provided. Assessment & Plan (06/02/2023 8:27 AM WAREHOUSE WORKER): Discussed the patients BMI: The BMI is [...] 12/20/2022 Assessment & Plan (05/07/2024 8:55 PM WAREHOUSE WORKER): Patient is on medication for her rheumatoid arthritis managed by [facility] Assessment & Plan (01/22/2024 8:13 PM CDT): Medications from [facility] contribute to her immunosuppressive state. Assessment & Plan (09/06/2023 9:41 AM WAREHOUSE WORKER): Medications are managed by [facility] for her rheumatoid arthritis Assessment & Plan (04/06/2023 7:44 PM CDT): Managed by [facility]. Currently on Plaquenil methotrexate Orencia folic [...] She has had evaluation by Urology at [facility] and has been told there [...] capacity. Assessment & Plan (09/06/2023 9:41 AM WAREHOUSE WORKER): Continue per . She did not tolerate [...] Pate. Assessment & Plan (07/18/2022 10:20 AM WAREHOUSE WORKER): CT revealed pelvic lipomatosis that is compressing [...] 02/11/2022 Assessment & Plan (09/06/2023 9:41 AM WAREHOUSE WORKER): No change. Dysfunction of both eustachian tubes 02/11/2022 Myalgia, lower leg 01/11/2022 PLMD (periodic limb movement disorder) Assessment & Plan (08/02/2024 11:49 AM WAREHOUSE WORKER): Asymptomatic Assessment & Plan (06/22/2022 10:31 AM WAREHOUSE WORKER): Will continue Requip 1 mg nightly Assessment [...] bedtime. Assessment & Plan (07/13/2021 11:25 AM WAREHOUSE WORKER): Due to the patient stating that she [...] 06/04/2020 Assessment & Plan (08/23/2024 10:16 AM WAREHOUSE WORKER): Hepatitis negative 06/2020 Tspot negative 06/2020 Continue routine lab monitoring Maintain routine eye exams throughout the duration of taking hydroxychloroquine Assessment & Plan (07/30/2024 8:24 AM WAREHOUSE WORKER): Hepatitis negative 06/2020 Tspot negative 06/2020 Continue [...] hydroxychloroquine Assessment & Plan (09/01/2023 8:34 AM WAREHOUSE WORKER): Hepatitis negative 06/2020 Tspot negative 06/2020 Continue routine lab monitoring Maintain routine eye exams throughout the duration of taking hydroxychloroquine Assessment & Plan (06/29/2023 2:19 PM WAREHOUSE WORKER): Hepatitis negative 06/2020 Tspot negative 06/2020 Continue [...] hydroxychloroquine Assessment & Plan (07/14/2022 2:58 PM WAREHOUSE WORKER): Hepatitis negative 06/2020 Tspot negative 06/2020 Continue routine lab monitoring Maintain routine eye exams throughout the duration of taking hydroxychloroquine Assessment & Plan (06/03/2022 9:58 AM WAREHOUSE WORKER): Hepatitis negative 06/2020 Tspot negative 06/2020 Continue [...] hydroxychloroquine Assessment & Plan (09/03/2021 8:29 AM WAREHOUSE WORKER): Hepatitis negative 06/2020 Tspot negative 06/2020 Continue routine lab monitoring Maintain routine eye exams throughout the duration of taking hydroxychloroquine Assessment & Plan (06/03/2021 4:17 PM WAREHOUSE WORKER): Hepatitis negative 06/2020 Tspot negative 06/2020 Continue [...] hydroxychloroquine Assessment & Plan (09/02/2020 1:16 PM WAREHOUSE WORKER): Hepatitis negative 06/2020 Tspot negative 06/2020 Continue routine lab monitoring Maintain routine eye exams throughout the duration of taking hydroxychloroquine Assessment & Plan (07/09/2020 12:23 PM WAREHOUSE WORKER): Hepatitis negative 06/2020 Tspot negative 06/2020 Continue routine lab monitoring Maintain routine eye exams throughout the duration of taking hydroxychloroquine Drug-induced constipation 08/13/2019 Assessment & Plan (05/07/2024 8:54 PM WAREHOUSE WORKER): Patient with chronic constipation. Has been on [...] linzess Assessment & Plan (08/13/2019 8:57 AM WAREHOUSE WORKER): On Movantik with Dr. Soto Herpes zoster without complication 12/13/2018 Assessment & Plan (12/23/2018 10:18 PM CDT): Valtex to pharmacy. She has had shingles in the past. Pre-diabetes 10/31/2018 Assessment & Plan (05/07/2024 8:55 PM WAREHOUSE WORKER): Pre-diabetes/hyperglycemia is a precursor to Dm. Stressed [...] diabetes. Assessment & Plan (09/06/2023 9:40 AM WAREHOUSE WORKER): Pre-diabetes/hyperglycemia is a precursor to Dm. Stressed [...] diabetes. Assessment & Plan (09/11/2021 11:22 PM WAREHOUSE WORKER): Pre-diabetes/hyperglycemia is a precursor to Dm. Stressed importance of working on diet (decrease your simple sugars and one carbohydrate with each meal) and increase you exercise to achieve weight loss and this will help prevent you from progressing to diabetes. Assessment & Plan (05/29/2021 8:18 PM WAREHOUSE WORKER): Pre-diabetes/hyperglycemia is a precursor to Dm. Stressed [...] diabetes. Assessment & Plan (08/31/2020 9:34 AM WAREHOUSE WORKER): Pre-diabetes is a precursor to Dm. Stressed [...] diabetes. Assessment & Plan (08/13/2019 9:00 AM WAREHOUSE WORKER): This is a significant, separately identifiable problem [...] 10/31/2018 Assessment & Plan (05/07/2024 8:54 PM WAREHOUSE WORKER): Depression symptoms are stable with Wellbutrin XL 150 Cymbalta 60 b.i.d. Assessment & Plan (04/21/2024 8:50 PM CDT): Depression symptoms are stable with the Wellbutrin XL 150 and Cymbalta 60 b.i.d. Assessment & Plan (01/22/2024 8:11 PM CDT): Depression symptoms are stable with Wellbutrin and Cymbalta Assessment & Plan (09/06/2023 9:40 AM WAREHOUSE WORKER): Depression is stable with Wellbutrin and Cymbalta Assessment & Plan (08/03/2023 8:31 AM WAREHOUSE WORKER): Stable with Cymbalta 60 and Wellbutrin XL [...] Cymbalta Assessment & Plan (09/11/2021 11:26 PM WAREHOUSE WORKER): Continue Wellbutrin and Cymbalta Assessment & Plan (05/29/2021 8:22 PM WAREHOUSE WORKER): Continue Wellbutrin and Cymbalta Assessment & Plan (05/24/2021 10:39 AM WAREHOUSE WORKER): Continue Wellbutrin and Cymbalta Assessment & Plan (12/24/2020 9:07 AM CDT): Continue wellbutrin and cymbalta Assessment & Plan (08/31/2020 9:35 AM WAREHOUSE WORKER): Continue wellbutrin and cymbalta Assessment & Plan (02/18/2020 9:47 PM CDT): Stable with the Cymbalata Assessment & Plan (08/13/2019 8:59 AM WAREHOUSE WORKER): Stable with Cymbalta and Wellbutrin Assessment & [...] regimen. Med list updated to reflect the [id number] one daily and Prozac 40mg. Mixed hyperlipidemia 03/29/2018 Assessment & Plan (05/07/2024 8:54 PM WAREHOUSE WORKER): Encouraged patient to follow low fat/low chol [...] statin Assessment & Plan (09/06/2023 9:42 AM WAREHOUSE WORKER): Encouraged patient to follow low fat/low chol [...] statin Assessment & Plan (09/11/2021 11:26 PM WAREHOUSE WORKER): Encouraged patient to follow low fat/low chol diet like the Mediterranean diet. Increase good fats in the diet. Increase exercise. Monitor labs as needed. Continue statin Assessment & Plan (05/29/2021 8:22 PM WAREHOUSE WORKER): Encouraged patient to follow fat/low chol diet like the Mediterranean diet. Increase good fats in the diet. Increase exercise. Monitor labs as needed. Continue statin Assessment & Plan (05/24/2021 10:39 AM WAREHOUSE WORKER): Encouraged patient to follow fat/low chol diet like the Mediterranean diet. Increase good fats in the diet. Increase exercise. Monitor labs as needed. Continue statin Assessment & Plan (12/24/2020 9:07 AM CDT): Encouraged patient to follow fat/low chol diet like the Mediterranean diet. Increase good fats in the diet. Increase exercise. Monitor labs as needed. Continue statin Assessment & Plan (08/31/2020 9:34 AM WAREHOUSE WORKER): Encouraged patient to follow fat/low chol diet like the Mediterranean diet. Increase good fats in the diet. Increase exercise. Monitor labs as needed. Continue statin Assessment & Plan (02/18/2020 9:46 PM CDT): Encouraged patient to continue low fat/low chol diet. Continue exercise. Increase good fats in the diet. Monitor labs as needed. Assessment & Plan (08/13/2019 8:59 AM WAREHOUSE WORKER): Encouraged patient to continue low fat/low chol [...] future Assessment & Plan (09/06/2023 9:40 AM WAREHOUSE WORKER): Continue PPI Assessment & Plan (04/06/2023 7:36 PM CDT): Continue PPI p.r.n. Assessment & Plan (01/20/2023 8:13 PM CDT): Continue PPI Assessment & Plan (09/12/2022 6:13 PM CDT): Continue PPI p.r.n. Assessment & Plan (06/03/2022 3:40 PM WAREHOUSE WORKER): Pyrosis poorly controlled on Nexium. Pt has [...] PPI Assessment & Plan (09/11/2021 11:26 PM WAREHOUSE WORKER): Continue PPI Assessment & Plan (12/24/2020 9:05 AM CDT): Continue PPI Assessment & Plan (02/18/2020 9:45 PM CDT): Continue PPI. Saw Dr. Linton for increased GERD sxs. If persist, encouraged to followup again with Dr. Linton. Assessment & Plan (08/13/2019 8:58 AM WAREHOUSE WORKER): Stable with PPI Assessment & Plan (04/29/2019 [...] exertion) Assessment & Plan (06/22/2022 10:30 AM WAREHOUSE WORKER): Patient is not currently using inhalers. She [...] 10/14/2015 Assessment & Plan (08/02/2024 11:49 AM WAREHOUSE WORKER): Due to the patient stating the pressure [...] readjusted. She denied need for supplies. DME [facility] patient Assessment & Plan (05/07/2024 8:55 PM WAREHOUSE WORKER): Continue with CPAP. Assessment & Plan (04/21/2024 8:49 PM CDT): Continue per Dr. Dunn. Has all her needed supplies for CPAP which she is using every night. Continue with Requip 0.5 mg HS for restless leg Assessment & Plan (01/22/2024 8:08 PM CDT): Continue CPAP per Dr. Dunn Assessment & Plan (09/06/2023 9:40 AM WAREHOUSE WORKER): Continue CPAP Assessment & Plan (06/21/2023 10:14 AM WAREHOUSE WORKER): Patient continue to wear her CPAP at [...] CPAP Assessment & Plan (06/22/2022 10:31 AM WAREHOUSE WORKER): Will continue CPAP therapy at an auto titrating range of 7-20 cm water pressure. Denied need for supplies. DME [facility] patient Assessment & Plan (05/02/2022 9:15 PM [...] water pressure. Patient denied need for supplies. [employer] [facility] [employer] patient. Patient is benefitting CPAP Assessment & Plan (09/11/2021 11:22 PM WAREHOUSE WORKER): Continue CPAP. Patient has all needed supplies. Assessment & Plan (07/13/2021 11:27 AM WAREHOUSE WORKER): Due to the patient stating she does not have enough pressure in her machine, I have increased the pressure to 13 cm water pressure. The patient denied need for for supplies. DME company [facility]. Have also ordered a new smart card set at 13 cm water pressure. Benefitting from CPAP therapy Assessment & Plan (05/29/2021 8:14 PM WAREHOUSE WORKER): Continue CPAP. Assessment & Plan (02/17/2021 11:09 AM CDT): The patient continues to be compliant with her CPAP at 8 cm water pressure. She has developed worsening daytime hypersomnia. She also has morning headaches and dry mouth. I have recommended proceeding with a CPAP titration study starting at 8 cm water pressure. Her DME is [facility]. Assessment & Plan (12/24/2020 9:04 AM CDT): Continue CPAP. Would like to see Pulm/sleep at [facility] as difficulty getting in consistently at [place] and most of her care is now [facility] Assessment & Plan (02/18/2020 9:44 PM CDT): Continue CPAP Assessment & Plan (08/13/2019 8:46 AM WAREHOUSE WORKER): Using the CPAP. Has equipment as needed. [...] noted. Assessment & Plan (08/23/2024 10:16 AM WAREHOUSE WORKER): 02/2021 XR L knee with mild to moderate OA, now s/p B TKA. Following with ortho as planned. Assessment & Plan (07/30/2024 11:23 AM WAREHOUSE WORKER): 02/2021 XR L knee with mild to [...] March. Assessment & Plan (09/01/2023 3:42 PM WAREHOUSE WORKER): 02/2021 XR L knee with mild to moderate OA, R knee negative. Had injections with ortho without benefit, now s/p L TKA. Assessment & Plan (06/30/2023 12:46 PM WAREHOUSE WORKER): 02/2021 XR L knee with mild to [...] g/d. Assessment & Plan (07/15/2022 1:41 PM WAREHOUSE WORKER): 02/2021 XR L knee with mild to moderate OA, R knee negative. Had injections with ortho with benefit. Unable to afford PT. Can continue Tylenol Arthritis, not to exceed 4 g/d. Assessment & Plan (06/03/2022 9:58 AM WAREHOUSE WORKER): 02/2021 XR L knee with mild to [...] evaluation. Assessment & Plan (09/03/2021 11:27 AM WAREHOUSE WORKER): XR L knee with mild to moderate [...] able. Assessment & Plan (06/04/2021 10:27 AM WAREHOUSE WORKER): XR L knee with mild to moderate [...] above. Assessment & Plan (09/03/2020 12:23 PM WAREHOUSE WORKER): 10/27/2017 XR L knee: mild tricompartmental OA. Will continue meloxicam as above. Assessment & Plan (07/09/2020 12:24 PM WAREHOUSE WORKER): 10/27/2017 XR L knee: mild tricompartmental OA. [...] examination. Assessment & Plan (08/23/2024 12:54 PM WAREHOUSE WORKER): Moderate cdai with report of increasing pain, stiffness, and swelling in the time that she has been without Orencia. Failed trial of ssz since last visit due to GI upset. As she is now enrolled in the P program she is eager to resume Orencia, will check benefits. She has 5 doses of Orencia at home now, so recommend that she go ahead and resume now. Continue methotrexate 20 mg weekly, folic acid 2 mg daily, and hydroxychloroquine 200 mg BID. Labs today as below. Follow up in 3 months or sooner as needed. Assessment & Plan (07/30/2024 11:22 AM WAREHOUSE WORKER): Moderate cdai with report of increased morning [...] with labs near her home ([facility] in [place]), but the following month will need to plan for an in person visit. She expressed understanding and agreement with this plan. Continue methotrexate 20 mg weekly, folic acid 2 mg daily, and hydroxychloroquine 200 mg BID. Labs today as below. Assessment & Plan (05/07/2024 8:55 PM WAREHOUSE WORKER): Managed by [facility]. Currently on Plaquenil and methotrexate and Orencia folic acid Mobic and gabapentin. Stressed she needs to be in contact with her supervisor grinding on when and which medicines to stop [...] needed. Assessment & Plan (09/06/2023 9:42 AM WAREHOUSE WORKER): Rheumatoid arthritis is managed by [facility]. Currently on Plaquenil methotrexate Orencia and folic acid Assessment & Plan (09/01/2023 3:39 PM WAREHOUSE WORKER): Overall stable without notable synovitis and no inflammatory sounding pain. Will continue methotrexate 20 mg weekly, folic acid 2 mg daily, hydroxychloroquine 200 mg BID, and Orencia and monitor. Labs today as below. Follow up in 3 months or sooner as needed. Assessment & Plan (08/03/2023 8:28 AM WAREHOUSE WORKER): Continue with rheumatology. Assessment & Plan (06/30/2023 12:43 PM WAREHOUSE WORKER): Overall stable without notable synovitis and no inflammatory sounding pain. Will continue methotrexate 20 mg weekly, folic acid 2 mg daily, hydroxychloroquine 200 mg BID, and Orencia and monitor. Labs today as below. Assessment & Plan (06/02/2023 4:49 PM WAREHOUSE WORKER): Continue per Rheumatology Assessment & Plan (04/06/2023 7:35 PM CDT): Continue per Rheumatology. She has been in discussion with them on what medications to stop prior to her knee surgery. She states she was told to take all of her medicines accept the Orencia. Assessment & Plan (01/20/2023 8:12 PM CDT): Continue per Rheumatology [facility] Assessment & Plan (01/13/2023 3:42 [...] Plan (09/12/2022 6:06 PM CDT): Continue with [facility] Assessment & Plan (07/15/2022 1:41 PM WAREHOUSE WORKER): Low cdai. Significantly improved after IM triamcinolone [...] needed. Assessment & Plan (06/03/2022 3:37 PM WAREHOUSE WORKER): High cdai. Previously felt well controlled with current regimen. Due to burden of disease will give patient a triamcinolone injection. Patient made aware of SE of steroids including but not limited to HTN, increased blood glucose, cataracts, glaucoma, AVN, and osteoporosis with alf use. Should she flare again shortly after [...] (01/23/2022 4:57 PM CDT): Continue management per [facility] Assessment & Plan (12/07/2021 9:02 AM CDT): Low cdai. Denies inflammatory sounding joint pain. Continue methotrexate 25 mg weekly, folic acid to 2 mg daily, Rinvoq 15 mg daily, hydroxychloroquine 200 mg BID, and cyclobenzaprine 5 mg qhs and monitor. Labs today as below. Plan for follow up in 3 months or sooner as needed. Assessment & Plan (09/11/2021 11:14 PM WAREHOUSE WORKER): Continue per [facility] Assessment & Plan (09/03/2021 11:25 AM WAREHOUSE WORKER): cdai = 12. Pt suspects increased joint [...] needed. Assessment & Plan (06/04/2021 10:25 AM WAREHOUSE WORKER): Low cdai. Denies inflammatory sounding pain at present. Will plan to continue methotrexate 25 mg weekly, folic acid to 2 mg daily, Rinvoq 15 mg daily, hydroxychloroquine 200 mg BID, and cyclobenzaprine 5 mg qhs and monitor. Labs today as below. Plan for follow up in 3 months or sooner as needed. Assessment & Plan (05/31/2021 9:15 PM WAREHOUSE WORKER): Continue per Rheumatology Assessment & Plan (05/29/2021 8:13 PM WAREHOUSE WORKER): Continue per Rheumatology. Currently on Plaquenil methotrexate and folic acid. Assessment & Plan (05/24/2021 10:38 AM WAREHOUSE WORKER): Continue per Rheumatology Assessment & Plan (03/05/2021 [...] needed. Assessment & Plan (09/03/2020 12:22 PM WAREHOUSE WORKER): Low cdai. Continues to feel improved with [...] needed. Assessment & Plan (08/31/2020 9:34 AM WAREHOUSE WORKER): Continue per [facility] Assessment & Plan (07/09/2020 12:22 PM WAREHOUSE WORKER): 64yoF with a h/o seropositive RA diagnosed [...] time. Assessment & Plan (06/04/2020 11:14 AM WAREHOUSE WORKER): 64yoF with a h/o seropositive RA diagnosed [...] needed. Assessment & Plan (05/14/2020 9:33 PM WAREHOUSE WORKER): Refer [facility] as Dr[facility] Soto has . Assessment & Plan (02/18/2020 9:46 PM CDT): Continue per Rheum Assessment & Plan (08/13/2019 8:59 AM WAREHOUSE WORKER): Continue per Dr. Soto Assessment & Plan [...] of her osteoporosis, recommended evaluation by the [facility], unfortunately their first available appt was in November 2024. Recommended today that she check with [facility] Osteoporosis center (at [facility]) to see how far out they are scheduling new patients, though she does not like this option due to distance from her house. Assessment & Plan (09/06/2023 9:40 AM WAREHOUSE WORKER): Managed by [facility]. Per patient they are making a referral to bone metabolism at [facility] she has not seen significant improvement with the Forteo or the Reclast. Assessment & Plan (09/01/2023 3:43 PM WAREHOUSE WORKER): DEXA: Lspine BMD 0.809 Tscore -2.2, L [...] of her osteoporosis, recommend evaluation by the [facility], provided contact info for Dr. Castillo. Pt in agreement with plan. Assessment & Plan (06/30/2023 12:49 PM WAREHOUSE WORKER): DEXA: Lspine BMD 0.809 Tscore -2.2, L [...] PM CDT): Continue to monitor. Managed by [facility]. Patient is on Reclast calcium vitamin-D [...] exercise Assessment & Plan (07/15/2022 1:42 PM WAREHOUSE WORKER): 01/27/2021 DEXA: Lspine -1.8, L femoral neck -1.9, L total hip -1.2, R femoral neck -2.3, R total hip -1.0, FRAX major 32% and hip 7%. Received Reclast 07/2021. Continue yearly Reclast, scheduled for 07/22 Assessment & Plan (06/03/2022 3:38 PM WAREHOUSE WORKER): 01/27/2021 DEXA: Lspine -1.8, L femoral neck [...] Plan (01/23/2022 5:02 PM CDT): Managed by [facility] currently on Reclast calcium and vitamin-D Assessment & Plan (12/07/2021 9:04 AM CDT): 01/27/2021 DEXA: Lspine -1.8, L femoral neck -1.9, L total hip -1.2, R femoral neck -2.3, R total hip -1.0, FRAX major 32% and hip 7%. Received Reclast 07/2021. Continue yearly Reclast. Assessment & Plan (09/03/2021 11:26 AM WAREHOUSE WORKER): 01/27/2021 DEXA: Lspine -1.8, L femoral neck -1.9, L total hip -1.2, R femoral neck -2.3, R total hip -1.0, FRAX major 32% and hip 7%. Received Reclast 07/2021. Continue yearly reclast and daily vitamin D-calcium supplement. Assessment & Plan (06/04/2021 10:27 AM WAREHOUSE WORKER): 01/27/2021 DEXA: Lspine -1.8, L femoral neck [...] order provided today, she will schedule at [facility] Assessment & Plan (12/24/2020 9:06 AM CDT): Continue Reclast thru Rheum Continue calcium, vitD and exercise Assessment & Plan (12/03/2020 10:45 AM CDT): Vitamin D level was 68. Received Reclast 07/09/2020. Last DEXA per available records was 01/31/2019, due this summer - order provided today, she will schedule at [facility] Assessment & Plan (09/03/2020 12:23 PM WAREHOUSE WORKER): Vitamin D level was 68. Received Reclast 07/09/2020. Last DEXA per available records was 01/31/2019, due this summer. Assessment & Plan (07/09/2020 12:23 PM WAREHOUSE WORKER): Overdue for Reclast, last infusion was 03/28/2019, will receive infusion today. Vitamin D level was 68 Last DEXA per available records was 01/31/2019 Assessment & Plan (06/04/2020 11:15 AM WAREHOUSE WORKER): Overdue for Reclast, last infusion was 03/28/2019, will check benefits. Recheck vitamin D level now. Last DEXA per available records was 01/31/2019 Assessment & Plan (02/18/2020 9:46 PM CDT): Calcium, vit D and exercise. Continue to monitor DXA Assessment & Plan (08/13/2019 8:58 AM WAREHOUSE WORKER): Continue with Calcium, Vit D and Exercise. [...] Krishnamurthy. Assessment & Plan (09/06/2023 9:41 AM WAREHOUSE WORKER): New diagnosis Dupree's esophagus made on 08/2023 EGD at [facility] with Dr. Daniels Stressed importance of very close follow-up BMI 37.0-37.9, adult 09/06/2023 024 Assessment & Plan (10/13/2023 7:38 AM CDT): Discussed the patient's BMI. The BMI is above average. BMI management plan is completed. BMI Follow-up includes: nutrition counseling, exercise counseling and education provided. Assessment & Plan (09/06/2023 9:42 AM WAREHOUSE WORKER): Discussed the patient's BMI. The BMI is above average. BMI management plan is completed. BMI Follow-up includes: nutrition counseling, exercise counseling and education provided. Hyperglycemia 09/06/2023 09/06/2023 Positive depression screening 09/06/2023 09/06/2023 Annual physical exam 09/06/2023 024 Assessment & Plan (09/06/2023 9:43 AM WAREHOUSE WORKER): Encouraged healthy lifestyle, good nutrition and exercise. Encouraged Calcium and Vitamin D and weight bearing exercise for bone health. Reviewed immunizations Reviewed age appropirate screenings. Right knee pain 08/09/2023 09/06/2023 Sinus congestion 08/07/2023 09/06/2023 Assessment & Plan (08/07/2023 7:54 PM WAREHOUSE WORKER): Persistent sinusitis symptoms along with cough. Will start doxy b.i.d.. Start antihistamine (Claritin OR Zyrtec), Mucinex 12hour and Steroid nasal spray (Flonase). Push fluids. Rest. Supportive care. If sxs worsen or don\'t improve, pt is to followup in the office. Acute cough 08/07/2023 01/22/2024 Assessment & Plan (08/07/2023 7:55 PM WAREHOUSE WORKER): Persistent sinusitis symptoms along with cough. Will start doxy b.i.d.. Start antihistamine (Claritin OR Zyrtec), Mucinex 12hour and Steroid nasal spray (Flonase). Push fluids. Rest. Supportive care. If sxs worsen or don\'t improve, pt is to followup in the office. BMI 35.0-35.9,adult 08/03/2023 09/06/19 24 Assessment & Plan (08/07/2023 7:51 PM WAREHOUSE WORKER): Discussed the patient's BMI. The BMI is above average. BMI management plan is completed. BMI Follow-up includes: nutrition counseling, exercise counseling and education provided. Assessment & Plan (08/03/2023 8:29 AM WAREHOUSE WORKER): Discussed the patient's BMI. The BMI is [...] 01/22/2024 Assessment & Plan (06/02/2023 4:57 PM WAREHOUSE WORKER): Later in the day received critical lab call for a CO2 value at 42. My staff contacted the patient and she was instructed to go to the ER for further evaluation to determine underlying cause. She states throughout the day she has noticed a little bit more shortness of breath. She plans to have her brother drive her to [facility]. Charge nurse was notified of the arrival Discussed patient with Dr. Kelsey Interstitial pulmonary disease, unspecified 05/06/2023 01/22/2024 Other specified disorders of bone density and structure, unspecified site 05/06/2023 01/22/2024 Arthritis of left knee 05/04/202309/05 Preoperative cardiovascular examination 04/19/2023 09/06/2023 History of chest pain 04/19/20234 Encounter for pre-operative examination 04/06/2023 09/06/2023 Assessment & Plan (04/06/2023 7:46 PM CDT): This is a significant, separately identifiable problem that was evaluated and managed on the same day as the wellness exam Requesting cardiac clearance with Dr. Barajas That visit is already scheduled for April 19. I have discussed with patient the inherent risk of surgery. 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 Her chronic medical conditions are stable. [facility] as instructed her to hold the [...] a left total knee replacement with Dr. eG Sexton on May 04 at [facility]. Need for vaccination for Strep pneumoniae 01/20/2023 [...] symptoms worsen or do not respond to [id number] allergy medicines within the next week she may call and will consider antibiotic. Left knee pain 09/13/2022 09/06/2023 BMI 39.0-39.9,adult 08/23/2022 11/09/19 Assessment & Plan (10/25/2022 3:32 PM CDT): Discussed the patient's BMI. The BMI is above average. BMI management plan is completed. BMI Follow-up includes: nutrition counseling, exercise counseling and education provided. Assessment & Plan (08/23/2022 2:19 PM WAREHOUSE WORKER): Discussed the patient's BMI. The BMI is [...] plans Assessment & Plan (07/18/2022 10:20 AM WAREHOUSE WORKER): CT revealed pelvic lipomatosis that is compressing [...] 12/20/2022 Assessment & Plan (07/18/2022 10:21 AM WAREHOUSE WORKER): CT revealed pelvic lipomatosis that is compressing [...] plan, Assessment & Plan (07/08/2022 12:33 PM WAREHOUSE WORKER): Patient has had dysuria. She was started [...] STAT abd/pelvis with and without contrast at [facility]. Check labs STAT. Acute right flank pain 07/08/202204/06 Assessment & Plan (07/18/2022 10:21 AM WAREHOUSE WORKER): CT revealed pelvic lipomatosis that is compressing [...] plan, Assessment & Plan (07/08/2022 5:58 PM WAREHOUSE WORKER): Images from the original note were not [...] STAT abd/pelvis with and without contrast at [facility]. Check labs STAT. STAT CT Abd/pelvis without [...] 09/06/2023 Assessment & Plan (07/08/2022 12:33 PM WAREHOUSE WORKER): Patient has had dysuria. She was started [...] STAT. Assessment & Plan (07/06/2022 8:50 AM WAREHOUSE WORKER): Pt presents with dysuria. Urine dip completed. [...] 35.00-39.99. Assessment & Plan (07/18/2022 10:23 AM WAREHOUSE WORKER): Discussed the patient's BMI. The BMI is above average. BMI management plan is completed. BMI Follow-up includes: nutrition counseling, exercise counseling and education provided. Assessment & Plan (07/08/2022 12:30 PM WAREHOUSE WORKER): Discussed the patient's BMI. The BMI is [...] has received multiple injections from her supervisor grinding regarding her knee but yesterday when she [...] 01/23/2022 Assessment & Plan (09/11/2021 11:28 PM WAREHOUSE WORKER): Patient has never had a full skin exam. She has quite a few lesions scattered and would benefit from a full exam. Will make referral Annual physical exam 09/11/2021 022 Assessment & Plan (09/11/2021 11:28 PM WAREHOUSE WORKER): Encouraged healthy lifestyle, good nutrition and exercise. Encouraged Calcium and Vitamin D and weight bearing exercise for bone health. Reviewed immunizations Reviewed age appropirate screenings. Cough 08/13/2021 01/23/2022 Assessment & Plan (08/13/2021 3:43 PM WAREHOUSE WORKER): Patient to presume positive COVID/FLU until results are available and plan to self isolate for up to 10 days from the onset of sxs. Check COVID/FLU test thru [facility] collection site in [place]. Let pt know the newest CDC recommendations [...] future. Assessment & Plan (07/13/2021 11:28 AM WAREHOUSE WORKER): I have ordered the patient Claritin 10 [...] provided. Assessment & Plan (09/11/2021 11:27 PM WAREHOUSE WORKER): Obesity is unchanged. Discussed the patient's BMI. The BMI is above average. BMI management plan is completed. BMI Follow-up includes: nutrition counseling, exercise counseling and education provided. Assessment & Plan (05/29/2021 8:24 PM WAREHOUSE WORKER): Obesity is unchanged. Discussed the patient's BMI. The BMI is above average. BMI management plan is completed. BMI Follow-up includes: nutrition counseling, exercise counseling and education provided. Assessment & Plan (05/12/2021 1:26 PM WAREHOUSE WORKER): Obesity is unchanged. Discussed the patient's BMI. The BMI is above average. BMI management plan is completed. BMI Follow-up includes: nutrition counseling, exercise counseling and education provided. BMI 37.0-37.9, adult 05/12/2021 022 Assessment & Plan (09/11/2021 11:27 PM WAREHOUSE WORKER): Obesity is unchanged. Discussed the patient's BMI. The BMI is above average. BMI management plan is completed. BMI Follow-up includes: nutrition counseling, exercise counseling and education provided. Assessment & Plan (05/29/2021 8:24 PM WAREHOUSE WORKER): Obesity is unchanged. Discussed the patient's BMI. The BMI is above average. BMI management plan is completed. BMI Follow-up includes: nutrition counseling, exercise counseling and education provided. Assessment & Plan (05/12/2021 1:26 PM WAREHOUSE WORKER): Obesity is unchanged. Discussed the patient's BMI. The BMI is above average. BMI management plan is completed. BMI Follow-up includes: nutrition counseling, exercise counseling and education provided. Tinea corporis 04/14/2021 01/23/2022 Assessment & Plan (05/31/2021 9:15 PM WAREHOUSE WORKER): Improving with Lotrisone. Keep the area clean and dry Assessment & Plan (05/29/2021 8:24 PM WAREHOUSE WORKER): Lotrisone to pharmacy. Encouraged her to keep the area clean and dry use her dryer to dry the skin before applying the cream. She is to call if symptoms worsen or do not resolve. Need for immunization against influenza 04/14/2021 05/31/2021 Assessment & Plan (05/29/2021 8:24 PM WAREHOUSE WORKER): Fluid updated in the office Medicare annual wellness visit, subsequent 04/13/2021 05/31/2021 Assessment & Plan (05/29/2021 8:23 PM WAREHOUSE WORKER): Encouraged healthy lifestyle, good nutrition and exercise. [...] discomfort 12/30/2020 12/30/2020 BMI 38.0-38.9,adult 12/24/2020 12/31/19 21 Assessment & Plan (12/24/2020 7:21 AM CDT): Obesity is unchanged. Discussed the patient's BMI. The BMI is above average. BMI management plan is completed. BMI Follow-up includes: nutrition counseling, exercise counseling and education provided. BMI 39.0-39.9,adult 12/24/2020 12/25/19 21 Obesity (BMI 30-39.9) 12/24/20202020 Assessment & Plan [...] 12/30/2020 Assessment & Plan (08/31/2020 9:31 AM WAREHOUSE WORKER): Error. This should be right calf but PT order sent and corrected so unable to remove. Fatigue 08/31/2020 09/06/2023 Assessment & Plan (04/06/2023 7:43 PM CDT): Probably multifactorial. Check labs and followup to re-evaluate Assessment & Plan (05/02/2022 9:16 PM CDT): Probably multifactorial. Check labs and followup to re-evaluate Assessment & Plan (08/31/2020 9:34 AM WAREHOUSE WORKER): Probably multifactorial. Check labs and followup to re-evaluate Pain in both lower extremities 08/31/2020 09/06/2023 Assessment & Plan (09/01/2023 3:41 PM WAREHOUSE WORKER): Cramping lower leg pain has resolved with [...] 021 Assessment & Plan (08/31/2020 9:33 AM WAREHOUSE WORKER): Obesity is unchanged. Discussed the patient's BMI. The BMI is above average. BMI management plan is completed. BMI Follow-up includes: nutrition counseling, exercise counseling and education provided. Pain of right calf 08/26/2020 Assessment & Plan (08/31/2020 9:31 AM WAREHOUSE WORKER): This is a significant, separately identifiable problem that was evaluated and managed on the same day as the wellness exam Unable to rule out DVT with her calf pain/sxs. Check STAT Venous doppler. Recvd Results and discussed with patient via phone. Negative for DVT. Recommend PT. Prefers [facility] Annual physical exam 08/24/2020 021 Assessment & Plan (08/31/2020 9:34 AM WAREHOUSE WORKER): Encouraged healthy lifestyle, good nutrition and exercise. Encouraged Calcium and Vitamin D and weight bearing exercise for bone health. Reviewed immunizations Reviewed age appropirate screenings. Dizziness 05/07/2020 09/06/2023 Assessment & Plan (05/14/2020 9:35 PM WAREHOUSE WORKER): Suspect the dizziness is inner ear related. [...] imaging. Assessment & Plan (05/07/2020 1:49 PM WAREHOUSE WORKER): Declines to report to er now 'I [...] 05/14/2020 Assessment & Plan (05/07/2020 1:49 PM WAREHOUSE WORKER): Declines to report to er now 'I [...] 12/30/2020 Assessment & Plan (05/07/2020 1:49 PM WAREHOUSE WORKER): Declines to report to er now 'I [...] provided Assessment & Plan (05/31/2021 9:15 PM WAREHOUSE WORKER): Mammogram order provided Assessment & Plan (02/18/2020 9:47 PM CDT): Mammogram order provided today Medicare annual wellness visit, subsequent 02/15/2020 02/15/2020 Precordial pain 09/04/2019 09/06/2023 Assessment & Plan (08/07/2023 7:50 PM WAREHOUSE WORKER): Workup in the hospital. Cardiology states her [...] inhaler. Assessment & Plan (07/13/2021 11:26 AM WAREHOUSE WORKER): The patient will continue with Dulera 2 [...] 020 Assessment & Plan (08/13/2019 8:59 AM WAREHOUSE WORKER): Encouraged healthy lifestyle, good nutrition and exercise. Encouraged Calcium and Vitamin D and weight bearing exercise for bone health. Reviewed immunizations Reviewed age appropirate screenings. Obesity, morbid, BMI 40.0-49.9 08/13/2019 09/23/2020 Assessment & Plan (08/26/2020 7:10 AM WAREHOUSE WORKER): Obesity is unchanged. Discussed the patient's BMI. The BMI is above average. BMI management plan is completed. BMI Follow-up includes: nutrition counseling, exercise counseling and education provided. Assessment & Plan (05/14/2020 9:33 PM WAREHOUSE WORKER): Obesity is unchanged. Discussed the patient's BMI. [...] provided. Assessment & Plan (08/13/2019 8:58 AM WAREHOUSE WORKER): Obesity is unchanged. Discussed the patient's BMI. [...] change Assessment & Plan (08/13/2019 9:01 AM WAREHOUSE WORKER): This is a significant, separately identifiable problem [...] 01/22/2024 Assessment & Plan (09/06/2023 9:42 AM WAREHOUSE WORKER): Probably multifactorial. Check labs and followup to re-evaluate Assessment & Plan (09/03/2021 11:28 AM WAREHOUSE WORKER): She notes increased fatigue and lack of [...] re-evaluate Assessment & Plan (08/13/2019 9:08 AM WAREHOUSE WORKER): Probably multifactorial. Check labs and followup to re-evaluate Check labs prior to next visit BMI 40.0-44.9, adult 08/02/2019 020 Assessment & Plan (08/13/2019 8:57 AM WAREHOUSE WORKER): Obesity is unchanged. Discussed the patient's BMI. The BMI is above average. BMI management plan is completed. BMI Follow-up includes: nutrition counseling, exercise counseling and education provided. Assessment & Plan (08/02/2019 7:21 AM WAREHOUSE WORKER): Obesity is unchanged. Discussed the patient's BMI. The BMI is above average. BMI management plan is completed. BMI Follow-up includes: nutrition counseling, exercise counseling and education provided. Morbid obesity 08/02/2019 08/13/2019 Assessment & Plan (08/02/2019 7:20 AM WAREHOUSE WORKER): Obesity is unchanged. Discussed the patient's BMI. The BMI is above average. BMI management plan is completed. BMI Follow-up includes: nutrition counseling, exercise counseling and education provided. Acute non-recurrent maxillary sinusitis 08/02/2019 08/13/2019 Assessment & Plan (08/02/2019 7:47 AM WAREHOUSE WORKER): Start antibiotic, antihistamine, Mucinex and Steroid nasal [...] foot. She is being sent directly to [facility] and they were working her in today. [...] 21 Assessment & Plan (05/14/2020 9:33 PM WAREHOUSE WORKER): Completed Doxy and steroid. No s/s infection. [...] p.r.n. Assessment & Plan (08/13/2019 8:59 AM WAREHOUSE WORKER): Continue with NSAIDs prn Atheroscler of [place] artery of both legs with intermit claudication 10/31/2018 12/20/2022 Assessment & Plan (09/11/2021 11:23 PM WAREHOUSE WORKER): Continue per vascular. She is on aspirin and statin Assessment & Plan (12/24/2020 9:03 AM CDT): Sxs stable. On ASA, statin and encouraged daily exercise. Assessment & Plan (02/18/2020 9:43 PM CDT): Continue per cardio. On ASA and statin Assessment & Plan (08/13/2019 8:45 AM WAREHOUSE WORKER): Continues with Dr. Alonso salmeron Assessment & Plan (11/01/2018 11:00 PM CDT): Pt sxs well controlled. On ASA Coronary artery disease of n ative artery of [place] heart with stable angina pectoris 10/31/2018 12/30/2020 Assessment & Plan (08/13/2019 8:36 AM WAREHOUSE WORKER): On ASA and Nitrate. Continue per cardio Depression 07/16/2018 09/11/2021 Frontal sinusitis 06/26/2018 12/24/2020 Leukopenia 03/29/2018 12/30/2020 Other chronic pain 08/05/2017 3 Chronic seasonal allergic rh initis due to pollen 04/25/2017 12/30/2020 Assessment & Plan (12/24/2020 9:03 AM CDT): Continue current regimen with singulair and otc Assessment & Plan (02/18/2020 9:44 PM CDT): Continue with otc regimen Assessment & Plan (08/13/2019 8:46 AM WAREHOUSE WORKER): Continue current regimen Assessment & Plan (11/01/2018 [...] potassium Assessment & Plan (09/11/2021 11:26 PM WAREHOUSE WORKER): Bp is stable/in acceptable range for any co-morbidities. Encouraged to limit sodium intake and exercise for weight control. Currently stable without medication Assessment & Plan (05/29/2021 8:19 PM WAREHOUSE WORKER): Bp is stable/in acceptable range for any co-morbidities. Encouraged to limit sodium intake and exercise for weight control. Continue Lasix is helping with the swelling and addition. Blood pressure stable Assessment & Plan (05/24/2021 10:38 AM WAREHOUSE WORKER): Continue Lasix potassium Assessment & Plan (12/24/2020 9:05 AM CDT): Bp is stable/in acceptable range for any co-morbidities. Encouraged to limit sodium intake and exercise for weight control. Assessment & Plan (08/31/2020 9:32 AM WAREHOUSE WORKER): Bp is stable/in acceptable range for any co-morbidities. Encouraged to limit sodium intake and exercise for weight control. Stable with laxis currently Assessment & Plan (02/18/2020 9:44 PM CDT): Bp is stable/in acceptable range for any co-morbidities. Encouraged to limit sodium intake and exercise for weight control. Assessment & Plan (08/13/2019 8:57 AM WAREHOUSE WORKER): Bp is stable/in acceptable range for any [...] difficulty pulling them. Recommend finding some on [employer] that fit her calf that she can zip on and off. Showed them to her on [employer] and where to order them. She states she will try to get them. Assessment & Plan (05/31/2021 9:16 PM WAREHOUSE WORKER): Improving slowly. May have been due to the Relafen. She is on 60 of Lasix with potassium 10 mEq daily. Continue with current plan. Keep legs elevated. Utilize compressi to improve cleared. on hose. Call if symptoms worsen or do not continue to improve. Assessment & Plan (05/29/2021 8:23 PM WAREHOUSE WORKER): Persistent lower extremity edema that has improved [...] CMP. Assessment & Plan (05/24/2021 10:39 AM WAREHOUSE WORKER): Patient that her swelling was improving since discharge for over the last day or so it seems to be increasing. Will increase the Lasix to 40mg Start K 10meq daily Recheck labs in 5 days Assessment & Plan (08/31/2020 9:33 AM WAREHOUSE WORKER): Continue lasix Palpitations 12/08/2015 12/30/2020 Overview (10/09/2016): Palpitations Other abnormal glucose 11/11/201508/31 Asthma 10/14/2015 12/24/2020 Assessment & Plan (08/13/2019 8:49 AM WAREHOUSE WORKER): Continue with current regimen and with Pulmonary Assessment & Plan (11/01/2018 10:53 PM CDT): Currently Stable with regimen. Monitor closely with current allergy season. Followup Dr. Gomez as directed. Menopause 10/14/2015 12/30/2020 Cervical pain (neck) 10/14/2015 023 Immunizations Immunization Administration Dates Next Due COVID-19 mRNA (Manufacturers' Inventory) 0.3 m L (30 mcg) vaccine (12 [...] 0.6 oz pur e alcohol) [facility] Utilities Answer Date Recorded In the past 12 months has [employer], gas, oil, or water company threatened to [...] often do you attend chur ch or presybeterian services? 1 to 4 times per year [...] file Legal Sex Female 8:04 PM WAREHOUSE WORKER Gender Identity Female 02/15/2020 6:08 PM [...] on file Medical Devices Implanted Type Area Industrial Truck Driver Device Identifier Shelf Expiration Date Model / Serial / Lot [employer] Simplex P Radiopaque Full Dose Cement Bone Sterile 6191-1-010 - [id number] Implanted:Qty: 2 on 05/04/2023 by Michael Motta MD at [facility] Bone Cement Left: Knee [employer] 05/03/2025 6191-1-010 / 6191-1-001 / [id number] [employer] Simplex P Radiopaque Full Dose Cement Bone Sterile 6191-1-010 - [id number] Implanted:Qty: 2 on 05/30/2024 by Michael Motta MD at [facility] Bone Cement Right: Patella [employer] [id number] 05/03/2026 6191-1-010 / / [id number] [employer] Persona 14mm 30+ Mm Knee Tibia Taper Extension Stem [id number] - [id number] 4 - [id number] Implanted:Qty: 1 on 05/04/2023 by Michael Motta MD at [facility] Left: Knee [employer] [id number] 02/15/2033 [id number] / [id number] 14 / [id number] [employer] Persona Cemented Cruciate Retaining Knee Left 7 Narrow Component [id number] - Y68-5901-126-8 1 - [id number] Implanted:Qty: 1 on 05/04/2023 by Michael Motta MD at [facility] Left: Knee [employer] [id number] 10/25/2032 [id number] / 74-3133-303- 01 / [id number] [employer] Baseplate Tibial Knee Cemented Left Fixed Stemmed Persona Size D Tivanium [id number] - F33-1475-104-1 1 - [id number] Implanted:Qty: 1 on 05/04/2023 by Michael Motta MD at [facility] Left: Knee [employer] [id number] 09/11/2032 [id number] / 36-0113-376- 01 / [id number] [employer] Persona 11mm Knee Left 6-7 C-D Insert Articular Vivacit-E Sterile [id number] - L13-2537-915-3 1 - [id number] Implanted:Qty: 1 on 05/04/2023 by Michael Motta MD at [facility] Left: Knee [employer] [id number] 12/28/2025 [id number] / 06-3098-966- 11 / [id number] [employer] Persona 32mm Knee Component Patellar All Poly Latex Free 00-8495-474-32 - [id number] Implanted:Qty: 1 on 05/04/2023 by Michael Motta MD at [facility] [employer] 12/19/2027 [id number] / / [id number] [employer] Baseplate Tibial Knee Cemented Right Fixed Stemmed Persona Size C Tivanium [id number] - [id number] Implanted:Qty: 1 on 05/30/2024 by Michael Motta MD at [facility] Right: Knee [employer] [id number] 03/22/2033 [id number] / / [id number] [employer] Persona 29mm Knee Component Patellar All Poly Latex Free [id number] - [id number] Implanted:Qty: 1 on 05/30/2024 by Michael Motta MD at [facility] Right: Knee [employer] [id number] 12/18/2028 [id number] / / [id number] [employer] Persona 13mm Cruciate Retain Knee Right 6-7 Cd Insert Articular Latex Free [id number] - [id number] Implanted:Qty: 1 on 05/30/2024 by Michael Motta MD at [facility] Right: Patella [employer] [id number] 05/04/2025 [id number] / / [id number] [employer] Persona Cruciate Retaining Cemented Knee Right 7 Narrow Component [id number] - [id number] Implanted:Qty: 1 on 05/30/2024 by Michael Motta MD at [facility] Right: Knee [employer] [id number] 12/27/2033 [id number] / / [id number] [employer] Persona 14mm 30+ Mm Knee Tibia Taper Extension Stem [id number] - [id number] Implanted:Qty: 1 on 05/30/2024 by Michael Motta MD at [facility] Right: Knee [employer] [id number] 04/11/2034 [id number] / / [id number] Procedures Procedure Name Priority Date/Time Associated Diagnosis [...] Read Routine (OP Routine) 08/29/2024 12:23 PM WAREHOUSE WORKER COMPREHENSIVE METABOLIC PANEL Routine 08/23/2024 2:11 PM WAREHOUSE WORKER Encounter for medication monitoring CBC WITH AUTO DIFFERENTIAL Routine 08/23/2024 2:11 PM WAREHOUSE WORKER Encounter for medication monitoring SCAN - LABS 08/23/2024 VITAMIN B12 Routine 08/02/2024 7:41 AM WAREHOUSE WORKER Fatigue, unspecified type LIPID PANEL Routine 08/02/2024 7:41 AM WAREHOUSE WORKER Mixed hyperlipidemia HEMOGLOBIN A1C Routine 08/02/2024 7:41 AM WAREHOUSE WORKER Pre-diabetes COMPREHENSIVE METABOLIC PANEL Routine 08/02/2024 7:41 AM WAREHOUSE WORKER Mixed hyperlipidemia CBC WITH AUTO DIFFERENTIAL Routine 08/02/2024 7:41 AM WAREHOUSE WORKER Fatigue, unspecified type TSH Routine 08/02/2024 7:41 AM WAREHOUSE WORKER Fatigue, unspecified type ERYTHROCYTE SEDIMENTATION RATE Routine 07/30/2024 2:36 PM WAREHOUSE WORKER 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) CRP (ACUTE PHASE) Routine 07/30/2024 2:3 6 PM WAREHOUSE WORKER 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) COMPREHENSIVE METABOLIC PANEL Routine 07/30/2024 2:36 PM WAREHOUSE WORKER Encounter for medication monitoring CBC WITH AUTO DIFFERENTIAL Routine 07/30/2024 2:36 PM WAREHOUSE WORKER Encounter for medication monitoring XR KNEE RIGHT 3 VIEWS Schedule Routine, Read Routine (OP Routine) 07/24/2024 1:35 PM WAREHOUSE WORKER Status post total knee replacement using cement, right DEXA AXIAL SKELETON BONE DENSITY 1 OR MORE SITES Schedule Routine, Read Routine (OP Routine) 04/12/2023 8:14 AM CDT COLONOSCOPY Routine 07/27/2021 HEPATITIS C ANTIBODY Routine 06/04/2020 10:29 AM WAREHOUSE WORKER Encounter for screening for other viral diseases [...] CDT) Influenza A Ag, POC Positive(A) Negative [facility] Influenza B Ag, POC Negative Negative [facility] COVID-19 Ag POC Presumptive Negative Presumptive Negative, Invalid [facility] Nasal 09/25/2024 11:0 2 AM CDT Jessica Collins NP POINT OF CARE TEST ORDERABLES Final Result [facility] [address] [id number] * XR Knee Right 3 Views (09/13/2024 [...] John Sparrow M.D. RB T: Report ID: [id number] Reading Location: [id number] Procedure Note John Sparrow MD - 09/18/2024 [...] John Sparrow M.D. RB T: Report ID: [id number] Reading Location: [id number] Michael Motta MD IMG XR PROCEDURES Final Re sult * (ABNORMAL) CT Abdomen Pelvis W Contrast (08/29/2024 12:23 PM WAREHOUSE WORKER) Anatomical Region Laterality Modality Body N/A Computed Tomogra phy Historical Provider IMIke CT PROCEDURES Edited Result - Final * CBC with auto differential (08/23/2024 2:11 PM WAREHOUSE WORKER) WBC 4.8 3.8 - 10.8 Thousand/u L [...] [facility] Blood 08/23/2024 2:11 PM WAREHOUSE WORKER 08/23/2024 2:11 PM WAREHOUSE WORKER Sangita OSMAN LAB BLOOD ORDERABLES Vy suazo Result [facility] [address] [address] [place] [id number] * (ABNORMAL) Comprehensive metabolic panel (08/23/2024 2:11 PM WAREHOUSE WORKER) Glucose 188(H) 65 - 99 mg/dL [facility] [...] [facility] Blood 08/23/2024 2:11 PM WAREHOUSE WORKER 08/23/2024 2:11 PM WAREHOUSE WORKER Sangita OSMAN LAB BLOOD ORDERABLES Vy l Result [facility] [address] [address] [place] [address] * SCAN - LABS (08/23/2024) Alee OSMAN Final Resu lt * (ABNORMAL) CBC with auto differential (08/02/2024 7:41 AM WAREHOUSE WORKER) WBC 4.0 3.8 - 10.8 Thousand/u L [...] [facility] Blood 08/02/2024 7:41 AM WAREHOUSE WORKER 08/02/2024 7:42 AM WAREHOUSE WORKER Alee OSMAN LAB BLOOD ORDERABLES Final Result Performing Organization Address [facility] Co de Phone Number [facility] [address] [place] [address] * TSH (08/02/2024 7:41 AM WAREHOUSE WORKER) [facility] TSH 1.57 0.40 - 4.50 mIU/L [facility] Blood 08/02/2024 7:41 AM WAREHOUSE WORKER 08/02/2024 7:42 AM WAREHOUSE WORKER Alee OSMAN LAB BLOOD ORDERABLES Final Result Performing Organization Address [facility] de Phone Number [facility]ST [facility] [facility] [address] [place] [address] * Hemoglobin A1c (08/02/2024 7:41 AM WAREHOUSE WORKER) Pathologist [facility] Hgb A1C 5.4 <5.7 % of total Hgb [facility] Comment: For the purpose of screening for the presence of diabetes: <5.7% Consistent with the absence of diabetes 5.7-6.4% Consistent with increased risk for diabetes (prediabetes) > or =6.5% Consistent with diabetes This assay result is consistent with a decreased risk of diabetes. Currently, no consensus exists regarding use of hemoglobin A1c for diagnosis of diabetes in children. According to [place] Diabetes Association (ADA) guidelines, hemoglobin A1c <7.0% represents optimal control in non- diabetic patients. Different metrics may apply to specific patient populations. Standards of Medical Care in Diabetes(ADA). Blood 08/02/2024 7:41 AM WAREHOUSE WORKER 08/02/2024 7:42 AM WAREHOUSE WORKER Alee OSMAN LAB BLOOD ORDERABLES Final Result [facility] [address] [place] [address] * Vitamin B12 (08/02/2024 7:41 AM WAREHOUSE WORKER) Vitamin B12 349 200 - 1,100 pg/mL [...] will have symptoms. Blood 08/02/2024 7:41 AM WAREHOUSE WORKER 08/02/2024 7:42 AM WAREHOUSE WORKER Alee OSMAN LAB BLOOD ORDERABLES Final Result [facility] [address] [facility] [place] [address] * Lipid panel (08/02/2024 7:41 AM WAREHOUSE WORKER) Cholesterol 127 <200 mg/dL [facility] [...] LDL-C. Barry FREITAS et al. ELAINE. 2013;310(19): 8046-5057 (http://education.SignalFuse/faq/PYZ297) Chol/HDL ratio 1.7 <5.0 (calc) [facility] Non-HDL, (LDL+VLDL) 52 <130 mg/dL (calc) [facility] Comment: For patients with diabetes plus 1 major ASCVD risk factor, treating to a non-HDL-C goal of <100 mg/dL (LDL-C of <70 mg/dL) is considered a therapeutic option. Blood 08/02/2024 7:41 AM WAREHOUSE WORKER 08/02/2024 7:42 AM WAREHOUSE WORKER Alee OSMAN LAB BLOOD ORDERABLES Final Result [facility] [address] [place] [address] * Comprehensive metabolic panel (08/02/2024 7:41 AM WAREHOUSE WORKER) [facility] Glucose 99 65 - 99 mg/dL [...] [facility] Blood 08/02/2024 7:41 AM WAREHOUSE WORKER 08/02/2024 7:42 AM WAREHOUSE WORKER Alee OSMAN LAB BLOOD ORDERABLES Final Result [facility] [address] [place] [address] * CBC with auto differential (07/30/2024 2:36 PM WAREHOUSE WORKER) WBC 6.4 3.8 - 10.8 Thousand/u L [...] [facility] Blood 07/30/2024 2:36 PM WAREHOUSE WORKER 07/30/2024 2:36 PM WAREHOUSE WORKER ieCrowdn Imitixyani AR LAB BLOOD ORDERABLES Vy l Result Performing Organization Address [facility] Co de Phone Number [facility] [address] [place] [address] * Erythrocyte sedimentation rate (07/30/2024 2:36 PM WAREHOUSE WORKER) Pathologist [facility] Erythrocyte sedimentation rate 11 < OR = 30 mm/h [facility] Blood 07/30/2024 2:36 PM WAREHOUSE WORKER 07/30/2024 2:36 PM WAREHOUSE WORKER ieCrowdn Imitixyani AR LAB BLOOD ORDERABLES Vy l Result Performing Organization Address [facility] Co de Phone Number [facility] [address] [place] [address] * CRP (acute phase) (07/30/2024 2:36 PM WAREHOUSE WORKER) C-RP <3.0 <8.0 mg/L [facility] Blood 07/30/2024 2:36 PM WAREHOUSE WORKER 07/30/2024 2:36 PM WAREHOUSE WORKER Sangita OSMAN LAB BLOOD ORDERABLES Vy suazo Result [facility] [address] [address] [place] [address] * (ABNORMAL) Comprehensive metabolic panel (07/30/2024 2:36 PM WAREHOUSE WORKER) Glucose 115(H) 65 - 99 mg/dL [facility] [...] [facility] Blood 07/30/2024 2:36 PM WAREHOUSE WORKER 07/30/2024 2:36 PM WAREHOUSE WORKER Sangita De Los Santos Charan OSMAN LAB BLOOD ORDERABLES Vy l Result [facility] [address] [address] [place] [address] * XR Knee Right 3 Views (07/24/2024 1:35 PM WAREHOUSE WORKER) Anatomical Region Laterality Modality Lower Extremities, Knee Right Computed Radiography 07/25/2024 7:16 AM WAREHOUSE WORKER Narrative 07/25/2024 7:18 AM WAREHOUSE WORKER EXAM DESCRIPTION: XR KNEE RIGHT 3 VIEWS [...] Elton Jonas M.D. KR T: Report ID: [id number] Reading Location: [id number] Procedure Note Elton Jonas MD - 07/25/2024 [...] Elton Jonas M.D. KR T: Report ID: [id number] Reading Location: [id number] Michael Motta MD IMG XR PROCEDURES Final [...] * Hepatitis C antibody (06/04/2020 10:29 AM WAREHOUSE WORKER) Hep C Ab NON-REACTI VE NON-REACT ALEYXS [facility] SIGNAL TO CUT-OFF 0.02 <1.00 [facility] Comment: HCV antibody was non-reactive. There is no laboratory evidence of HCV infection. In most cases, no further action is required. However, if recent HCV exposure is suspected, a test for HCV RNA (test code 61109) is suggested. For additional information please refer to http://education.Guestmob/faq/TNT28o4 (This link is being provided for informational/ educational purposes only.) Blood specimen (specimen) 06/04/2020 10:29 AM WAREHOUSE WORKER 06/04/2020 10:30 AM WAREHOUSE WORKER Sangita OSMAN LAB MICROBIOLOGY - GENERA L ORDERABLES Final Result [facility] [address] [address] [place] [id number] from Last 3 Months or Most Recently Relevant to Health Maintenance Insurance [facility] Member Subscriber Plan / Payer (Ef fective 2019-Present) Name:Nohemy Roy Relation to Subscriber:Self Name:Nohemy Roy Payer ID:[id number] (NAIC) Type:MEDICARE RISK OTHER Address: [address] [place] [id number] [facility] MED[facility] Address: [address] [address] [place] [address] Advance Directives For more information, please contact: [phone] Documents on File Type Date Recorded Patient Life Skills Specialist Expl anation ADVANCE DIRECTIVE 05/17/2024 2:13 PM Yonis r of Risk Control Consultant-Medical * Full Code (Latest Code Status on File) Date Activated Date Inactivated Comments 05/30/2024 12:38 PM 06/05/2024 6:31 PM * Full Code Date Activated Date Inactivated Comments 05/04/2023 2:33 PM 05/07/2023 3:07 AM * Full Code Date Activated Date Inactivated Comments 03/22/2021 4:39 PM 03/25/2021 6:17 PM Care Teams Clinical Reimbursement Specialist Relationship Specialty Start Date End Date Alee Elizondo PA [address] [facility] [address] [place] [place], [place] [id number] PCP - General Internal Medicine 07/05/23 Sharan Linton MD Referring Physician Gastroenterology 10/31/18 Martha Starks MD Consulting Physician Cardiology 12/24/20 Shama Hines MD [address] [facility] [address] [place] [address] Consulting Physician Pain Management 01/19/21 Artis Grewal MD [address] [place] [address] Consulting Physician Rheumatology 01/30/21 Amy Mayes NP [address] [facility] [address] [place] [address] Nurse Practitioner Cardiovascular Disease 04/20/24 Shailesh Dunn MD [address] [facility] [address] Consulting Physician Pulmonary Disease 04/20/24 Sangita Farrar PA [address] [place] [address] Physician Operations Executive Rheumatology 05/15/24
--- OUTSIDE RECORDS SUMMARY | 2024-10-07 11:16 | XMS_ITS | Encounter Summary ---
Author Organization [facility] Healthcare Address [address] [place] [address] Care Team Providers Care Dyer Helper Name Role Phone Sharan Linton MD Unavailable [phone] Martha Starks MD Unavailable [phone] Shama Hines MD Unavailable Artis Grewal MD Unavailable [phone] Alee Elizondo Primary Care Provider [phone] Amy Mayes NP Unavailable [phone] Shailesh Dunn MD Unavailable [phone] Sagnita Farrar Unavailable [phone] Encounter Details Date Type Department Care Team (Late st Contact Info) Description 10/03/2023 Orders Only [facility] Health Information Management [address] [place] [address] Scanning, Provider Social History Tobacco Use Types Packs/Day Years Used Date Smoking Tobacco: Never Smokeless Tobacco: Never Comments:Never used Alcohol Use Standard Drinks/Week Comments No 0 (1 standard drink = 0.6 oz pur e alcohol) [facility] Utilities Answer Date Recorded In [...] any clubs o r organizations such as anabaptist groups, unions, fraternal or athletic groups, or [...] on file Legal Sex Female 8:04 PM COMPUTER SUPPORT TECHNICIAN Gender Identity Female 02/15/2020 6:08 PM [...] documented as of this encounter Care Teams Dyer Helper Relationship Specialty Start Date End Date Alee Elizondo PA [address] [facility] [address] [place] [address] PCP - General Internal Medicine 07/05/23 Sharan Linton MD Referring Physician Gastroenterology 10/31/18 Martha Starks MD Consulting Physician Cardiology 12/24/20 Shama Hines MD [address] [facility], [address] [address] Consulting Physician Pain Management 01/19/21 Artis Grewal MD [address] [place] [address] Consulting Physician Rheumatology 01/30/21 Amy Mayes NP [address] [address] Nurse Practitioner Cardiovascular Disease 04/20/24 Shailesh Dunn MD [address] [facility] [address] [address] Consulting Physician Pulmonary Disease 04/20/24 Sangita Farrar PA [address] [place] [address] Physician Paving And Surfacing Labourer Rheumatology 05/15/24 documented as of this encounter
--- OUTSIDE RECORDS SUMMARY | 2024-10-07 11:16 | XMS_ITS | Encounter Summary ---
Author Organization [facility] Healthcare Address [address] [place] [address] Care Team Providers Care Defensive Fire Control Systems Operator Name Role Phone Sharan Linton MD Unavailable [phone] Martha Starks MD Unavailable [phone] Shama Hines MD Unavailable Artis Grewal MD Unavailable [phone] Alee Elizondo Primary Care Provider [phone] Amy Mayes NP Unavailable [phone] Shailesh Dunn MD Unavailable [phone] Sangita Farrar Unavailable [phone] Encounter Details Date Type Department Care Team (Late st Contact Info) Description 10/11/2023 Orders Only [facility] Health Information Management [address] [place] [address] Scanning, Provider Social History Tobacco Use Types Packs/Day Years Used Date Smoking Tobacco: Never Smokeless Tobacco: Never Comments:Never used Alcohol Use Standard Drinks/Week Comments No 0 (1 standard drink = 0.6 oz pur e alcohol) [facility] Utilities Answer Date Recorded In the past [...] you attend chur ch or confucianist services? 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 PM ARTIFICIAL CANDY MAKER Gender Identity Female 02/15/2020 6:08 PM [...] documented as of this encounter Care Teams Defensive Fire Control Systems Operator Relationship Specialty Start Date End Date Alee Elizondo PA [address] [facility] [address] [place] [address] PCP - General Internal Medicine 07/05/23 Sharan Linton MD Referring Physician Gastroenterology 10/31/18 Martha Starks MD Consulting Physician Cardiology 12/24/20 Shama Hines MD [address] [place] [address] [facility] [address] [place] [address] Consulting Physician Pain Management 01/19/21 Artis Grewal MD [address] [place] [address] Consulting Physician Rheumatology 01/30/21 Amy Mayes NP [address] [address] Nurse Practitioner Cardiovascular Disease 04/20/24 Shailesh Dunn MD [address] [facility] [address] [address] Consulting Physician Pulmonary Disease 04/20/24 Sangita Farrar PA [address] [place] [address] Physician Drop Forger Rheumatology 05/15/24 documented as of this encounter
--- OUTSIDE RECORDS SUMMARY | 2024-10-07 11:16 | XMS_ITS | Clinical Summary ---
Author Organization [facility] Address [address] [place] [address] Care Team Providers Care Hand Router Operator Name Role Phone Unavailable Primary Care Provider [...]
--- OUTSIDE RECORDS SUMMARY | 2024-10-07 11:16 | XMS_ITS | Encounter Summary ---
Author Organization [facility] Healthcare Address [address] [place] [address] Care Team Providers Care Hand Tube Bender Name Role Phone Sharan Linton MD Unavailable [phone] Martha Starks MD Unavailable [phone] Shama Hines MD Unavailable Artis Grewal MD Unavailable [phone] Alee Elizondo Primary Care Provider [phone] Amy Mayes NP Unavailable [phone] Shailesh Dunn MD Unavailable [phone] Sangita Farrar Unavailable [phone] Encounter Details Date Type Department Care Team (Late st Contact Info) Description 10/04/2024 Results Follow-Up [facility] Medical Group Family Medicine [address] [place] [address] Alee Elizondo PA [address] [facility] [address] [place] [address] Social History Tobacco Use Types Packs/Day Years Used Date Smoking Tobacco: Never Smokeless Tobacco: Never Comments:Never used Alcohol Use Standard Drinks/Week Comments No 0 (1 standard drink = 0.6 oz pur e alcohol) [facility] Utilities Answer Date Recorded In the past 12 months has [employer], oil, or water [employer] threatened to shut off services in your [...] often do you attend chur ch or yazidi services? 1 to 4 times per year [...] place to sleep or slept in a fdc (including now)? No 05/27/2023 PHQ-9 Answer Date [...] any time in the past 12 [facility], were you homeless or living in a fdc (including now)? No 05/30/2024 Personal Safety Answer Date Recorded Have you ever been in or are you currently in a harmful physical or emotional relationship or is someone making you feel afraid or unsafe? Denies 05/30/2024 Comments No Sex and Gender Information Value Date Recorded Sex Assigned at Not on file Legal Sex Female 8:04 PM SIDE DOOR WORKER Gender Identity Female 02/15/2020 6:08 PM CDT Sexual Orientation Not on file documented as of this encounter Miscellaneous Notes * Result Encounter Note - Jie Menchaca - 10/05/2024 1:34 PM CDT Pt returned call - informed her of normal results. She voiced understanding and had no questions. * Result Encounter Note - Alee Elizondo PA - 10/04/2024 11:06 AM CDT Let pt know her mammogram is normal and will plan to repeat in 1 year. documented in this encounter Plan of Treatment Not on file documented as of this encounter Visit Diagnoses Not on filedocumented in this encounter Care Teams Hand Tube Bender Relationship Specialty Start Date End Date Alee Elizondo PA [address] [facility] [address] [place] [address] PCP - General Internal Medicine 07/05/23 Sharan Linton MD Referring Physician Gastroenterology 10/31/18 Martha Starks MD Consulting Physician Cardiology 12/24/20 Shama Hines MD [address] [facility] [address] Consulting Physician Pain Management 01/19/21 Artis Grewal MD [address] [place] [address] Consulting Physician Rheumatology 01/30/21 Amy Mayes NP [address] [facility] [address] [place] [address] Nurse Practitioner Cardiovascular Disease 04/20/24 Shailesh Dunn MD [address] [address] Consulting Physician Pulmonary Disease 04/20/24 Sangita Farrar PA [address] [place] [address] Physician Glove Turner Rheumatology 05/15/24 documented as of this encounter
--- OUTSIDE RECORDS SUMMARY | 2024-10-07 11:16 | XMS_ITS | Encounter Summary ---
Author Organization [facility] Facility Care Team Providers Care Manager Retail Store Name Role Phone Alee Elizondo Primary Care Provider + [phone] Sharan Linton MD Unavailable [phone] Taisha Gomez MD Unavailable +[phone] Parag Soto MD Unavailable [phone] RaziaMartha singh MD Unavailable +[phone] Puneet Uribe MD Unavailable +[phone] Shama Hines MD Unavailable Artis Grewal MD Unavailable [phone] Harrison Pena RN Unavailable +[phone] Nafisa Gregg RN Unavailable Tho Kelsey MD Primary Care Provider +[phone] Alee Elizondo Primary Care Provider + [phone] Amy Mayes NP Unavailable +[phone] Shailesh Dunn MD Unavailable +[phone] Sangita Farrar Unavailable +[phone] Encounter Details Date Type Department Care Team (Latest Contact Info) Description 12/31/2015 Orders Only [facility] Provider, MD Tania [address] [place] [address] Social History Tobacco Use Types Packs/Day Years Used Date Smoking Tobacco: Never Alcohol Use Standard Drinks/Week Comments No 0 (1 standard drink = 0.6 oz pur e alcohol) Comments Unknown Sex and Gender Information Value Date Recorded Sex Assigned at Not on file Legal Sex Female 8:04 PM PESTICIDE USE MEDICAL COORDINATOR Gender Identity Female 02/15/2020 6:08 PM [...] COVID: Suspected 08/13/2021 08/14/2021 08/14/2021 3:06 AM PESTICIDE USE MEDICAL COORDINATOR COVID: Suspected 08/14/2021 08/14/2021 08/15/2021 3:05 AM PESTICIDE USE MEDICAL COORDINATOR COVID: Suspected 08/14/2021 08/14/2021 08/15/2021 6:25 AM PESTICIDE USE MEDICAL COORDINATOR COVID: Suspected 06/02/2023 06/02/2023 06/02/2023 7:25 PM PESTICIDE USE MEDICAL COORDINATOR COVID: Suspected 07/26/2023 07/26/2023 07/26/2023 3:10 PM PESTICIDE USE MEDICAL COORDINATOR COVID: Suspected 09/25/2024 09/25/2024 09/25/2024 11:03 AM CDT Influenza, adult 09/25/2024 09/25/2024 10/02/2024 3:05 AM CDT documented as of this encounter Care Teams Manager Retail Store Relationship Specialty Start Date End Date Alee Elizondo PA 1095 [facility] 500 [place] [address] PCP - General Internal Medicine 02/01/17 06/29/23 Tho Kelsey MD [address] [place] [address] DR [facility] [address] [place] [address] PCP - General Family Medicine 06/30/23 07/04/23 Alee Elizondo PA [address] [place] [address] [place] [address] PCP - General Internal Medicine 07/05/23 Sharan Linton MD [address] [facility] 500 [place], [place] [id number] Referring Physician Gastroenterology 10/31/18 Taisha Gomez MD [address] [facility] 500 [place], [place] [address] Referring Physician Pulmonary Disease 10/31/18 12/23/20 Parag Soto MD [address] [facility] 500 [place] [address] Referring Physician Rheumatology 10/31/18 12/23/20 Martha Starks MD [address] [place] [address] [place], [place] [address] Consulting Physician Cardiology 12/24/20 Puneet Uribe MD [address] [facility] [address] [place] [address] Consulting Physician Rheumatology 12/24/20 01/29/21 Shama Hines MD 4700 [facility], [facility] 230 [place] [address] Consulting Physician Pain Management 01/19/21 Artis Grewal MD [address] [place] [address] Consulting Physician Rheumatology 01/30/21 Harrison Pena, JULIUS [address] [place] [address] Clothing And Textiles Teacher 05/30/23 09/04/23 Nafisa rGegg, JULIUS [address] [place] [address] [facility] [address] [place] [address] Clothing And Textiles Teacher 06/06/23 06/12/23 Amy Myaes NP [address] [address] Nurse Practitioner Cardiovascular Disease 04/20/24 Shailesh Dunn MD [address] [address] Consulting Physician Pulmonary Disease 04/20/24 Sangita Farrar PA [address] [place] [address] Physician Laborer Pie Bakery Rheumatology 05/15/24 documented as of this encounter
--- OUTSIDE RECORDS SUMMARY | 2024-10-07 11:16 | XMS_ITS | Encounter Summary ---
Author Organization [facility] Healthcare Address [address] [place] [address] Care Team Providers Care Health Psychologist Name Role Phone Sharan Linton MD Unavailable [phone] Martha Starks MD Unavailable [phone] Shama Hines MD Unavailable Artis Grewal MD Unavailable [phone] Alee Elizondo Primary Care Provider [phone] Amy Mayes NP Unavailable [phone] Shailesh Dunn MD Unavailable [phone] Sangita Farrar Unavailable +[phone] Encounter Details Date Type Department Care Team (Late st Contact Info) Description 10/04/2024 Orders Only [facility] Medical Group Family Medicine [address] [facility] [address] [place] [address] Provider, MD Tania [address] [place] [address] Social History Tobacco Use Types Packs/Day Years Used Date Smoking Tobacco: Never Smokeless Tobacco: Never Comments:Never used Alcohol Use Standard Drinks/Week Comments No 0 (1 standard drink = 0.6 oz pur e alcohol) [facility] Utilities Answer Date Recorded In the [...] often do you attend chur ch or mu-ism services? 1 to 4 times per year 05/30/2024 Do you belong to any clubs o r organizations such as synagogue groups, unions, fraternal or athletic groups, or [...] in the past 12 m [facility], were you homeless or living in a group home (including now)? No 05/30/2024 Personal Safety Answer Date Recorded Have you ever been in or are you currently in a harmful physical or emotional relationship or is someone making you feel afraid or unsafe? Denies 05/30/2024 Comments No Sex and Gender Information Value Date Recorded Sex Assigned at Not on file Legal Sex Female 8:04 PM VACATION SALES ADVISOR Gender Identity Female 02/15/2020 6:08 PM CDT Sexual Orientation Not on file documented as of this encounter Plan of Treatment Not on file documented as of this encounter Visit Diagnoses Not on filedocumented in this encounter Care Teams Health Psychologist Relationship Specialty Start Date End Date Alee Elizondo PA [address] [address] PCP - General Internal Medicine 07/05/23 Sharan Linton MD Referring Physician Gastroenterology 10/31/18 Martha Starks MD Consulting Physician Cardiology 12/24/20 Shama Hines MD 4700 [facility] [address] Consulting Physician Pain Management 01/19/21 Artis Grewal MD [address] [place] [address] Consulting Physician Rheumatology 01/30/21 Amy Mayes NP [address] [address] Nurse Practitioner Cardiovascular Disease 04/20/24 Shailesh Dunn MD [address] [address] Consulting Physician Pulmonary Disease 04/20/24 Sangita Farrar PA [address] [place] [address] Physician Peer Financial Counselor Rheumatology 05/15/24 documented as of this encounter
--- OUTSIDE RECORDS SUMMARY | 2024-10-07 11:17 | XMS_ITS | Encounter Summary ---
Author Organization [facility] Facility Care Team Providers Care Stitch Burnisher Name Role Phone Alee Elizondo Primary Care Provider + [phone] Sharan Linton MD Unavailable [phone] Taisha Gomez MD Unavailable [phone] Parag Soto MD Unavailable [facility] MD Unavailable [phone] Puneet Uribe MD Unavailable +[phone] Shama Hines MD Unavailable Artis Grewal MD Unavailable [phone] Harrison Pena RN Unavailable +[phone] Nafisa Gregg RN Unavailable [phone] Tho Kelsey MD Primary Care Provider [phone] Alee Elizondo Primary Care Provider + [phone] Amy Mayes NP Unavailable [phone] Shailesh Dunn MD Unavailable [phone] Sangita Farrar Unavailable [phone] Encounter Details Date Type Department Care Team (Latest Contact Info) Description 09/14/2016 Orders Only [facility] CLINCONV Provider, MD Tania [address] [place] [address] Social History Tobacco Use Types Packs/Day Years Used Date Smoking Tobacco: Never Alcohol Use Standard Drinks/Week Comments No 0 (1 standard drink = 0.6 oz pur e alcohol) Comments Unknown Sex and Gender Information Value Date Recorded Sex Assigned at Not on file Legal Sex Female 8:04 PM SODA FLAKER Gender Identity Female 02/15/2020 6:08 PM CDT Sexual Orientation Not on file documented as of this encounter Plan of Treatment Not on file documented as of this encounter Procedures Procedure Name Priority Date/Time Associated Diagnosis Comments PROCEDURE - RESULT 09/09/2016 12 :00 AM SODA FLAKER documented in this encounter Results * PROCEDURE - RESULT (09/09/2016 12:00 AM SODA FLAKER) Narrative 09/09/2016 12:00 AM SODA FLAKER Ordered by an unspecified provider. Historical Provider MD Final Res ult documented in this encounter Visit Diagnoses Not on filedocumented in this encounter Additional Health Concerns Infection Onset Date Last Indicated Resolved Time COVID: Suspected 08/13/2021 08/14/2021 08/14/2021 3:06 AM SODA FLAKER COVID: Suspected 08/14/2021 08/14/2021 08/15/2021 3:05 AM SODA FLAKER COVID: Suspected 08/14/2021 08/14/2021 08/15/2021 6:25 AM SODA FLAKER COVID: Suspected 06/02/2023 06/02/2023 06/02/2023 7:25 PM SODA FLAKER COVID: Suspected 07/26/2023 07/26/2023 07/26/2023 3:10 PM SODA FLAKER COVID: Suspected 09/25/2024 09/25/2024 09/25/2024 11:03 AM CDT Influenza, adult 09/25/2024 09/25/2024 10/02/2024 3:05 AM CDT documented as of this encounter Care Teams Stitch Burnisher Relationship Specialty Start Date End Date Alee Elizondo PA 1095 [facility] 500 [place] [address] PCP - General Internal Medicine 02/01/17 06/29/23 Tho Kelsey MD [address] [place] [address] [address] [place] [address] [place] [address] PCP - General Family Medicine 06/30/23 07/04/23 Alee Elizondo PA [address] [place] [address] [place] [address] PCP - General Internal Medicine 07/05/23 Sharan Linton MD [address] [place] [address] [place] [address] Referring Physician Gastroenterology 10/31/18 Taisha Gomez MD [address] [place] [address] [place] [address] Referring Physician Pulmonary Disease 10/31/18 12/23/20 Parag Soto MD [address] [place] [address] [place] [address] Referring Physician Rheumatology 10/31/18 12/23/20 Martha Starks MD [address] [place] [address] [place] [address] Consulting Physician Cardiology 12/24/20 Puneet Uribe MD [address] [facility] [address] [place] [address] Consulting Physician Rheumatology 12/24/20 01/29/21 Shama Hines MD 4700 [facility], [place] [address] [place] [address] Consulting Physician Pain Management 01/19/21 Artis Grewal MD [address] [place] [address] Consulting Physician Rheumatology 01/30/21 Harrison Pena, JULIUS [address] [place] [address] Room Attendant 05/30/23 09/04/23 Nafisa Gregg, JULIUS [address] [place] [address] [facility] 300 [place] [address] Room Attendant 06/06/23 06/12/23 Amy Mayes NP [address] [facility] 102 [place] [address] Nurse Practitioner Cardiovascular Disease 04/20/24 Shailesh Dunn MD 4600 [facility] 200 [place] [address] Consulting Physician Pulmonary Disease 04/20/24 Sangita Farrar PA [address] [place] [address] Physician Boiler Assistant Operator Rheumatology 05/15/24 documented as of this encounter
--- OUTSIDE RECORDS SUMMARY | 2024-10-07 11:17 | XMS_ITS | Encounter Summary ---
Author Organization [facility] Healthcare Address [address] [place] [address] Care Team Providers Care Cell Phone Repair Technician Name Role Phone Sharan Linton MD Unavailable [phone] Martha Starks MD Unavailable [phone] Shama Hines MD Unavailable Artis Grewal MD Unavailable [phone] Alee Elizondo Primary Care Provider [phone] Amy Mayes NP Unavailable +[phone] Shailesh Dunn MD Unavailable [phone] Sangita Farrar Unavailable +[phone] Encounter Details Date Type Department Care Team (Late st Contact Info) Description 12/08/2023 Orders Only [facility] Information Management [address] [place] [address] Scanning, Provider Social History Tobacco Use Types Packs/Day Years Used Date Smoking Tobacco: Never Smokeless Tobacco: Never Comments:Never used Alcohol Use Standard Drinks/Week Comments No 0 (1 standard drink = 0.6 oz pur e alcohol) [facility] Utilities Answer Date Recorded In the past [...] often do you attend chur ch or sikh services? 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 Gender Identity Female 02/15/2020 6:08 [...] documented as of this encounter Care Teams Cell Phone Repair Technician Relationship Specialty Start Date End Date Alee Elizondo PA [address] [address] PCP - General Internal Medicine 07/05/23 Sharan Linton MD Referring Physician Gastroenterology 10/31/18 Martha Starks MD Consulting Physician Cardiology 12/24/20 Shama Hines MD 4700 [facility], [address] [address] Consulting Physician Pain Management 01/19/21 Artis Grewal MD [address] [place] [address] Consulting Physician Rheumatology 01/30/21 Amy Mayes NP [address] [address] Nurse Practitioner Cardiovascular Disease 04/20/24 Shailesh Dunn MD [address] [address] Consulting Physician Pulmonary Disease 04/20/24 Sangita Farrar PA [address] [place] [address] Physician Gage Maker Rheumatology 05/15/24 documented as of this encounter
--- OUTSIDE RECORDS SUMMARY | 2024-10-07 11:17 | XMS_ITS | Encounter Summary ---
Author Organization [facility] Healthcare Address [address] [place] [address] Care Team Providers Care Data Manager Name Role Phone Sharan Linton MD Unavailable [phone] Martha Starks MD Unavailable [phone] Shama Hines MD Unavailable Artis Grewal MD Unavailable [phone] Alee Elizondo Primary Care Provider [phone] Amy Mayes NP Unavailable [phone] Shailesh Dunn MD Unavailable [phone] Sangita Farrar Unavailable +[phone] Encounter Details Date Type Department Care Team (Late st Contact Info) Description 03/02/2024 Telephone [facility] Medical Group Family Medicine [address] [facility] [address] [place] [address] Alee Elizondo PA [address] [facility] [address] [place] [address] [place] [address] Social History Tobacco Use Types Packs/Day Years Used Date Smoking Tobacco: Never Smokeless Tobacco: Never Comments:Never used Alcohol Use Standard Drinks/Week Comments No 0 (1 standard drink = 0.6 oz pur e alcohol) [facility] Utilities Answer Date Recorded In the past 12 months has [employer], gas, oil, or water company threatened to [...] often do you attend chur ch or mormonism services? 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 500 [place] [address] PCP - General Internal Medicine 07/05/23 Sharan Linton MD Referring Physician Gastroenterology 10/31/18 Martha Starks MD Consulting Physician Cardiology 12/24/20 Shama Hines MD [address] [address] Consulting Physician Pain Management 01/19/21 Artis Grewal MD [address] [place] [address] Consulting Physician Rheumatology 01/30/21 Amy Mayes NP [address] [address] Nurse Practitioner Cardiovascular Disease 04/20/24 Shailesh Dunn MD [address] [address] Consulting Physician Pulmonary Disease 04/20/24 Sangita Farrar PA [address] [place] [address] Physician Tip Bander Rheumatology 05/15/24 documented as of this encounter
--- OUTSIDE RECORDS SUMMARY | 2024-10-07 11:17 | XMS_ITS | Encounter Summary ---
Author Organization [facility] Facility Care Team Providers Care Rafter Cutting 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 Name Role Phone Alee Elizondo Primary Care Provider + [phone] Sharan Linton MD Unavailable [phone] Taisha Gomez MD Unavailable [phone] Parag Soto MD Unavailable [phone] RaziaMartha singh MD Unavailable [phone] Puneet Uribe MD Unavailable +[phone] Shama Hines MD Unavailable Artis Grewal MD Unavailable [phone] Harrison Pena RN Unavailable +[phone] Nafisa Gregg RN Unavailable [phone] Tho Kelsey MD Primary Care Provider [phone] Alee Elizondo Primary Care Provider + [phone] Amy Mayes NP Unavailable +[phone] Shailesh Dunn MD Unavailable [phone] Sangita Farrar Unavailable +[phone] Encounter Details Date Type Department Care Team (Latest Contact Info) Description 10/15/2016 Orders Only [facility]IN[facility] Provider, MD Tania [address] [place] [address] Social History Tobacco Use Types Packs/Day Years Used Date Smoking Tobacco: Never Alcohol Use Standard Drinks/Week Comments No 0 (1 standard drink = 0.6 oz pur e alcohol) Comments Unknown Sex and Gender Information Value Date Recorded Sex Assigned at Not on file Legal Sex Female 8:04 PM FARROWING WORKER Gender Identity Female 02/15/2020 6:08 PM [...] COVID: Suspected 08/13/2021 08/14/2021 08/14/2021 3:06 AM FARROWING WORKER COVID: Suspected 08/14/2021 08/14/2021 08/15/2021 3:05 AM FARROWING WORKER COVID: Suspected 08/14/2021 08/14/2021 08/15/2021 6:25 AM FARROWING WORKER COVID: Suspected 06/02/2023 06/02/2023 06/02/2023 7:25 PM FARROWING WORKER COVID: Suspected 07/26/2023 07/26/2023 07/26/2023 3:10 PM FARROWING WORKER COVID: Suspected 09/25/2024 09/25/2024 09/25/2024 11:03 AM CDT Influenza, adult 09/25/2024 09/25/2024 10/02/2024 3:05 AM CDT documented as of this encounter Care Teams Rafter Cutting 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 Relationship Specialty Start Date End Date Alee Elizondo PA 1095 [facility] 500 [place] [address] PCP - General Internal Medicine 02/01/17 06/29/23 Tho Kelsey MD [address] [place] [address] DR [facility] [address] [place] [address] PCP - General Family Medicine 06/30/23 07/04/23 Alee Elizondo PA [address] [place] [address] [place] [address] PCP - General Internal Medicine 07/05/23 Sharan Linton MD [address] [place] [address] [place] [address] Referring Physician Gastroenterology 10/31/18 Taisha Gomez MD [address] [place] [address] [place] [address] Referring Physician Pulmonary Disease 10/31/18 12/23/20 Parag Soto MD [address] [place] [address] [place] [address] Referring Physician Rheumatology 10/31/18 12/23/20 Martha Starks MD [address] [place] [address] [place] [address] Consulting Physician Cardiology 12/24/20 Puneet Uribe MD [address] [facility] [address] [place] [address] Consulting Physician Rheumatology 12/24/20 01/29/21 Shama Hines MD 4700 [facility], [facility] [address] [place] [address] Consulting Physician Pain Management 01/19/21 Artis Grewal MD [address] [place] [address] Consulting Physician Rheumatology 01/30/21 Harrison Pena, JULIUS [address] [place] [address] Screw Machine Tool Setter 05/30/23 09/04/23 Nafisa Gregg, JULIUS [address] [place] [address] [facility] [address] [place] [address] Screw Machine Tool Setter 06/06/23 06/12/23 Amy Mayes NP [address] [address] Nurse Practitioner Cardiovascular Disease 04/20/24 Shailesh Dunn MD 4600 [facility] [address] [place] [address] Consulting Physician Pulmonary Disease 04/20/24 Sangita Farrar PA [address] [place] [address] Physician Virginia Line Attendant Rheumatology 05/15/24 documented as of this encounter
--- OUTSIDE RECORDS SUMMARY | 2024-10-07 11:17 | XMS_ITS | Encounter Summary ---
Author Organization [facility] Facility Care Team Providers Care Tile Grader Name Role Phone Alee Elizondo Primary Care Provider + [phone] Sharan Linton MD Unavailable [phone] Taisha Gomez MD Unavailable [phone] Parag Soto MD Unavailable [phone] RaziaMartha singh MD Unavailable [phone] Puneet Uribe MD Unavailable +[phone] Shama Hines MD Unavailable Artis Grewal MD Unavailable [phone] Harrison Pena RN Unavailable +[phone] Nafisa Gregg RN Unavailable +[phone] Tho Kelsey MD Primary Care Provider +[phone] Alee Elizondo Primary Care Provider + [phone] Amy Mayes NP Unavailable +[phone] Shailesh Dunn MD Unavailable +[phone] Sangita Farrar Unavailable +[phone] Encounter Details Date Type Department Care Team (Latest Contact Info) Description 01/08/2017 Orders Only [facility] Provider, MD Tania [address] [place] [address] Social History Tobacco Use Types Packs/Day Years Used Date Smoking Tobacco: Never Alcohol Use Standard Drinks/Week Comments No 0 (1 standard drink = 0.6 oz pur e alcohol) Comments Unknown Sex and Gender Information Value Date Recorded Sex Assigned at Not on file Legal Sex Female 8:04 PM VENDOR REPRESENTATIVES Gender Identity Female 02/15/2020 6:08 PM CDT [...] COVID: Suspected 08/13/2021 08/14/2021 08/14/2021 3:06 AM VENDOR REPRESENTATIVES COVID: Suspected 08/14/2021 08/14/2021 08/15/2021 3:05 AM VENDOR REPRESENTATIVES COVID: Suspected 08/14/2021 08/14/2021 08/15/2021 6:25 AM VENDOR REPRESENTATIVES COVID: Suspected 06/02/2023 06/02/2023 06/02/2023 7:25 PM VENDOR REPRESENTATIVES COVID: Suspected 07/26/2023 07/26/2023 07/26/2023 3:10 PM VENDOR REPRESENTATIVES COVID: Suspected 09/25/2024 09/25/2024 09/25/2024 11:03 AM CDT Influenza, adult 09/25/2024 09/25/2024 10/02/2024 3:05 AM CDT documented as of this encounter Care Teams Tile Grader Relationship Specialty Start Date End Date Alee Elizondo PA 1095 [facility] 500 [place] [address] PCP - General Internal Medicine 02/01/17 06/29/23 Tho Kelsey MD [address] [place] [address] DR [email or web address] [address] [place] [address] PCP - General Family Medicine 06/30/23 07/04/23 Alee Elizondo PA [address] [place] [address] [place] [address] PCP - General Internal Medicine 07/05/23 Sharan Linton MD [address] [place] [address] [place] [address] Referring Physician Gastroenterology 10/31/18 Taisha Gomez MD [address] [place] [address] [place] [address] Referring Physician Pulmonary Disease 10/31/18 12/23/20 Parag Soto MD [address] [place] [address] [place] [address] Referring Physician Rheumatology 10/31/18 12/23/20 Martha Starks MD [address] [place] [address] [place] [address] Consulting Physician Cardiology 12/24/20 Puneet Uribe MD [address] [facility] [[email or web address] [address] [place] [address] Consulting Physician Rheumatology 12/24/20 01/29/21 Shama Hines MD 4700 [facility], [facility] [[email or web address] [address] [place] [address] Consulting Physician Pain Management 01/19/21 Artis Grewal MD [address] [place] [address] Consulting Physician Rheumatology 01/30/21 Harrison Pena, JULIUS [address] [place] [address] Internal Revenue Agent 05/30/23 09/04/23 Nafisa Gregg, JULIUS [address] [place] [address] [facility] [address] [place] [address] Internal Revenue Agent 06/06/23 06/12/23 Amy Mayes NP [address] [address] Nurse Practitioner Cardiovascular Disease 04/20/24 Shailesh Dunn MD 4600 [facility] [[email or web address] [address] [place] [address] Consulting Physician Pulmonary Disease 04/20/24 Sangita Farrar PA [address] [place] [address] Physician Wagon Driver Rheumatology 05/15/24 documented as of this encounter
--- OUTSIDE RECORDS SUMMARY | 2024-10-07 11:17 | XMS_ITS | Encounter Summary ---
Author Organization [facility] Facility Care Team Providers Care Applications Development Analyst Name Role Phone Alee Eliozndo Primary Care Provider + [phone] Sharan Linton MD Unavailable [phone] Taisha Gomez MD Unavailable [phone] Parag Soto MD Unavailable [phone] RaziaMartha singh MD Unavailable [phone] Puneet Uribe MD Unavailable Shama Hines MD Unavailable Artis Grewal MD Unavailable [phone] Harrison Pena RN Unavailable [phone] Nafisa Gregg RN Unavailable Tho Kelsey MD Primary Care Provider [phone] Alee Elizondo Primary Care Provider + [phone] Amy Mayes NP Unavailable [phone] Shailesh Dunn MD Unavailable [phone] Sagnita Farrar Unavailable +[phone] Encounter Details Date Type Department Care Team (Latest Contact Info) Description 06/28/2016 Orders Only [facility] CLINCONV Provider, MD Tania [address] [place] [address] Social History Tobacco Use Types Packs/Day Years Used Date Smoking Tobacco: Never Alcohol Use Standard Drinks/Week Comments No 0 (1 standard drink = 0.6 oz pur e alcohol) Comments Unknown Sex and Gender Information Value Date Recorded Sex Assigned at Not on file Legal Sex Female 8:04 PM RN HEMODIALYSIS CHARGE Gender Identity Female 02/15/2020 6:08 PM CDT Sexual Orientation Not on file documented as of this encounter Plan of Treatment Not on file documented as of this encounter Procedures Procedure Name Priority Date/Time Associated Diagnosis Comments SCAN - LABS 06/29/2016 12:00 AM RN HEMODIALYSIS CHARGE documented in this encounter Results * SCAN - LABS (06/29/2016 12:00 AM RN HEMODIALYSIS CHARGE) Narrative 06/29/2016 12:00 AM RN HEMODIALYSIS CHARGE Ordered by an unspecified provider. Historical Provider MD Final Res ult documented in this encounter Visit Diagnoses Not on filedocumented in this encounter Additional Health Concerns Infection Onset Date Last Indicated Resolved Time COVID: Suspected 08/13/2021 08/14/2021 08/14/2021 3:06 AM RN HEMODIALYSIS CHARGE COVID: Suspected 08/14/2021 08/14/2021 08/15/2021 3:05 AM RN HEMODIALYSIS CHARGE COVID: Suspected 08/14/2021 08/14/2021 08/15/2021 6:25 AM RN HEMODIALYSIS CHARGE COVID: Suspected 06/02/2023 06/02/2023 06/02/2023 7:25 PM RN HEMODIALYSIS CHARGE COVID: Suspected 07/26/2023 07/26/2023 07/26/2023 3:10 PM RN HEMODIALYSIS CHARGE COVID: Suspected 09/25/2024 09/25/2024 09/25/2024 11:03 AM CDT Influenza, adult 09/25/2024 09/25/2024 10/02/2024 3:05 AM CDT documented as of this encounter Care Teams Applications Development Analyst Relationship Specialty Start Date End Date Alee Elizondo PA [address] [facility] 500 [place] [address] PCP - General Internal Medicine 02/01/17 06/29/23 Tho Kelsey MD [address] [place] [address] [address] [place] [address] PCP - General Family Medicine 06/30/23 07/04/23 Alee Elizondo PA [address] [place] [address] PCP - General Internal Medicine 07/05/23 Sharan Linton MD [address] [place] [address] Referring Physician Gastroenterology 10/31/18 Taisha Gomez MD [address] [place] [address] Referring Physician Pulmonary Disease 10/31/18 12/23/20 Parag Soto MD [address] [place] [place] [address] Referring Physician Rheumatology 10/31/18 12/23/20 Martha Starks MD [address] [place] [place] [address] Consulting Physician Cardiology 12/24/20 Puneet Uribe MD [address] [facility] 110 [place] [address] Consulting Physician Rheumatology 12/24/20 01/29/21 Shama Hines MD 4700 [facility], [address] [place] [address] Consulting Physician Pain Management 01/19/21 Artis Grewal MD [address] [place] [address] Consulting Physician Rheumatology 01/30/21 Harrison Pena, JULIUS [address] [place] [address] Highballer 05/30/23 09/04/23 Nafisa Gregg, JULIUS [address] [place] [address] [facility] 300 [place] [address] Highballer 06/06/23 06/12/23 Amy Mayes NP [address] [facility] 102 [place] [address] Nurse Practitioner Cardiovascular Disease 04/20/24 Shailesh Dunn MD 4600 [facility] 200 [place] [address] Consulting Physician Pulmonary Disease 04/20/24 Sangita Farrar PA [address] [place] [address] Physician Wood Milling 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 Rheumatology 05/15/24 documented as of this encounter
--- OUTSIDE RECORDS SUMMARY | 2024-10-07 11:17 | XMS_ITS | Encounter Summary ---
Author Organization [facility] Facility Care Team Providers Care Dietetic Aide Name Role Phone Alee Elizondo Primary Care Provider + [phone] Sharan Linton MD Unavailable [phone] Taisha Gomez MD Unavailable [phone] Parag Soto MD Unavailable [phone] RaziaMartha singh MD Unavailable [phone] Puneet Uribe MD Unavailable [phone] Shama Hines MD Unavailable Artis Grewal MD Unavailable [phone] Harrison Pena RN Unavailable +[phone] Nafisa Gregg RN Unavailable [phone] Tho Kelsey MD Primary Care Provider [phone] Alee Elizondo Primary Care Provider + [phone] Amy Mayes NP Unavailable [phone] Shailesh Dunn MD Unavailable [phone] Sangita Farrar Unavailable +[phone] Encounter Details Date Type Department Care Team (Latest Contact Info) Description 08/10/2017 Orders Only [facility] CLINCONV Provider, MD Tania [address] [place] [address] Social History Tobacco Use Types Packs/Day Years Used Date Smoking Tobacco: Never Smokeless Tobacco: Never Alcohol Use Standard Drinks/Week Comments No 0 (1 standard drink = 0.6 oz pur e alcohol) Comments Unknown Sex and Gender Information Value Date Recorded Sex Assigned at Not on file Legal Sex Female 8:04 PM ORACLE BPM CONSULTANT Gender Identity Female 02/15/2020 6:08 PM CDT Sexual Orientation Not on file documented as of this encounter Plan of Treatment Not on file documented as of this encounter Procedures Procedure Name Priority Date/Time Associated Diagnosis Comments CARDIOLOGY REPORT 08/10/2017 12: 00 AM ORACLE BPM CONSULTANT documented in this encounter Results * CARDIOLOGY REPORT (08/10/2017 12:00 AM ORACLE BPM CONSULTANT) Anatomical Region Laterality Modality Other Narrative 08/10/2017 12:00 AM ORACLE BPM CONSULTANT Ordered by an unspecified provider. Historical Provider [facility] LEANDRA LANDRUM Final Result documented in this encounter Visit Diagnoses Not on filedocumented in this encounter Additional Health Concerns Infection Onset Date Last Indicated Resolved Time COVID: Suspected 08/13/2021 08/14/2021 08/14/2021 3:06 AM ORACLE BPM CONSULTANT COVID: Suspected 08/14/2021 08/14/2021 08/15/2021 3:05 AM ORACLE BPM CONSULTANT COVID: Suspected 08/14/2021 08/14/2021 08/15/2021 6:25 AM ORACLE BPM CONSULTANT COVID: Suspected 06/02/2023 06/02/2023 06/02/2023 7:25 PM ORACLE BPM CONSULTANT COVID: Suspected 07/26/2023 07/26/2023 07/26/2023 3:10 PM ORACLE BPM CONSULTANT COVID: Suspected 09/25/2024 09/25/2024 09/25/2024 11:03 AM CDT Influenza, adult 09/25/2024 09/25/2024 10/02/2024 3:05 AM CDT documented as of this encounter Care Teams Dietetic Aide Relationship Specialty Start Date End Date Alee Elizondo PA [address] [facility] 500 [place] [address] PCP - General Internal Medicine 02/01/17 06/29/23 Tho Kelsey MD [address] [place] [address] [address] [facility] 300 [place] [address] PCP - General Family Medicine 06/30/23 07/04/23 Alee Elizondo PA [address] [place] [address] [place] [address] PCP - General Internal Medicine 07/05/23 Sharan Linton MD [address] [place] [place], [place] [id number] Referring Physician Gastroenterology 10/31/18 Taisha Gomez MD [address] [facility] 500 [place], [place] [address] Referring Physician Pulmonary Disease 10/31/18 12/23/20 Parag Soto MD [address] [facility] 500 [place] [address] Referring Physician Rheumatology 10/31/18 12/23/20 Martha Starks MD [address] [place] [place] [address] Consulting Physician Cardiology 12/24/20 Puneet Uribe MD [address] [facility] 110 [place] [address] Consulting Physician Rheumatology 12/24/20 01/29/21 Shama Hines MD 4700 [facility], [facility] 230 [place] [address] Consulting Physician Pain Management 01/19/21 Artis Grewal MD [address] [place] [address] Consulting Physician Rheumatology 01/30/21 Harrison Pena, JULIUS [address] [place] [address] Mortar Man 05/30/23 09/04/23 Nafisa Gregg, JULIUS [address] [place] [address] [facility] 300 [place], [place] [address] Mortar Man 06/06/23 06/12/23 Amy Mayes NP [address] [facility] 102 [place], [place] [address] Nurse Practitioner Cardiovascular Disease 04/20/24 Shailesh Dunn MD 4600 [facility] 200 [place] [address] Consulting Physician Pulmonary Disease 04/20/24 Sangita Farrar PA [address] [place] [address] Physician Web Content Editor Rheumatology 05/15/24 documented as of this encounter
[2024-10-07 11:44] VITALS: BP 138/50; PULSE 92; RESP 17; TEMP 36.4; O2SAT 97
[2024-10-07 12:11] VITALS: BP 120/50; PULSE 81; RESP 20; O2SAT 95
--- OUTSIDE RECORDS SUMMARY | 2024-10-07 12:15 | XMS_ITS | Encounter Summary ---
Author Organization [facility] Healthcare Address [address] [place] [address] Care Team Providers Care Technology Architect Name Role Phone Sharan Linton MD Unavailable [phone] Martha Starks MD Unavailable [phone] Shama Hines MD Unavailable Artis Grewal MD Unavailable [phone] Alee Elizondo Primary Care Provider [phone] Amy Mayes NP Unavailable [phone] Shailesh Dunn MD Unavailable [phone] Sangita Farrar Unavailable [phone] Encounter Details Date Type Department Care Team (Late st Contact Info) Description 10/03/2023 Orders Only [facility] Information Management [address] [place] [address] Scanning, Provider Social History Tobacco Use Types Packs/Day Years Used Date Smoking Tobacco: Never Smokeless Tobacco: Never Comments:Never used Alcohol Use Standard Drinks/Week Comments No 0 (1 standard drink = 0.6 oz pur e alcohol) [facility] Utilities Answer Date Recorded In the [...] often do you attend chur ch or yarsanism services? More than 4 times per year 05/27/2023 Do you belong to any clubs o r organizations such as moravian groups, unions, fraternal or athletic groups, or [...] to sleep or slept in a senior care (including now)? No 05/27/2023 PHQ-9 Answer Date [...] on file Legal Sex Female 8:04 PM OPERATIONS LEADER Gender Identity Female 02/15/2020 6:08 PM [...] documented as of this encounter Care Teams Technology Architect Relationship Specialty Start Date End Date Alee Elizondo PA [address] [facility] [place] [place] [address] PCP - General Internal Medicine 07/05/23 Sharan Linton MD Referring Physician Gastroenterology 10/31/18 Martha Starks MD Consulting Physician Cardiology 12/24/20 Shama Hines MD 4700 [facility], [address] [address] Consulting Physician Pain Management 01/19/21 Artis Grewal MD [address] [place] [address] Consulting Physician Rheumatology 01/30/21 Amy Mayes NP [address] [address] Nurse Practitioner Cardiovascular Disease 04/20/24 Shailesh Dunn MD 4600 [facility] [address] [address] Consulting Physician Pulmonary Disease 04/20/24 Sangita Farrar PA [address] [place] [address] Physician Fire Patroller Rheumatology 05/15/24 documented as of this encounter
--- OUTSIDE RECORDS SUMMARY | 2024-10-07 12:15 | XMS_ITS | Encounter Summary ---
Author Organization [facility] Facility Care Team Providers Care Erection Shop Supervisor Name Role Phone Alee Elizondo Primary Care Provider + [phone] Sharan Linton MD Unavailable [phone] Taisha Gomez MD Unavailable [phone] Parag Soto MD Unavailable [phone] [facility] MD Unavailable [phone] Puneet Uribe MD Unavailable [phone] Shama Hines MD Unavailable Artis Grewal MD Unavailable [phone] Harrison Pena RN Unavailable [phone] Nafisa Gregg RN Unavailable Tho Kelsey MD Primary Care Provider [phone] Alee Elizondo Primary Care Provider + [phone] Amy Mayes NP Unavailable [phone] Shailesh Dunn MD Unavailable [phone] Sangita Farrar Unavailable [phone] Encounter Details Date Type Department Care Team (Latest Contact Info) Description 09/29/2015 Orders Only [facility] CLINCONV Provider, MD Tania [address] [place] [address] Social History Tobacco Use Types Packs/Day Years Used Date Smoking Tobacco: Never Assessed Comments Unknown Sex and Gender Information Value Date Recorded Sex Assigned at Not on file Legal Sex Female 8:04 PM AUTOMATIC EDGER Gender Identity Female 02/15/2020 6:08 PM CDT [...] COVID: Suspected 08/13/2021 08/14/2021 08/14/2021 3:06 AM AUTOMATIC EDGER COVID: Suspected 08/14/2021 08/14/2021 08/15/2021 3:05 AM AUTOMATIC EDGER COVID: Suspected 08/14/2021 08/14/2021 08/15/2021 6:25 AM AUTOMATIC EDGER COVID: Suspected 06/02/2023 06/02/2023 06/02/2023 7:25 PM AUTOMATIC EDGER COVID: Suspected 07/26/2023 07/26/2023 07/26/2023 3:10 PM AUTOMATIC EDGER COVID: Suspected 09/25/2024 09/25/2024 09/25/2024 11:03 AM CDT Influenza, adult 09/25/2024 09/25/2024 10/02/2024 3:05 AM CDT documented as of this encounter Care Teams Erection Shop Supervisor Relationship Specialty Start Date End Date Alee Elizondo PA 1095 [facility] 500 [place] [address] PCP - General Internal Medicine 02/01/17 06/29/23 Tho Kelsey MD [address] [place] [address] DR [facility] [address] [place] [address] PCP - General Family Medicine 06/30/23 07/04/23 Alee Elizondo PA [address] [place] [place] [address] PCP - General Internal Medicine 07/05/23 Sharan Linton MD [address] [place] [place] [address] Referring Physician Gastroenterology 10/31/18 Taisha Gomez MD [address] [place] [place] [address] Referring Physician Pulmonary Disease 10/31/18 12/23/20 Parag Soto MD [address] [place] [place] [address] Referring Physician Rheumatology 10/31/18 12/23/20 Martha Starks MD [address] [place] [place] [address] Consulting Physician Cardiology 12/24/20 Puneet Uribe MD [address] [facility] [address] [place] [address] Consulting Physician Rheumatology 12/24/20 01/29/21 Shama Hines MD 4700 [facility], [facility] 230 [place] [address] Consulting Physician Pain Management 01/19/21 Artis Grewal MD [address] [place] [address] Consulting Physician Rheumatology 01/30/21 Harrison Pena, JULIUS [address] [place] [address] Inspector 05/30/23 09/04/23 Nafisa Gregg RN [address] [place] [address] [address] [place] [address] Inspector 06/06/23 06/12/23 Amy Mayes NP [address] [address] Nurse Practitioner Cardiovascular Disease 04/20/24 Shailesh Dunn MD [address] [address] Consulting Physician Pulmonary Disease 04/20/24 Sangita Farrar PA [address] [place] [address] Physician Industrial Painter Rheumatology 05/15/24 documented as of this encounter
--- OUTSIDE RECORDS SUMMARY | 2024-10-07 12:15 | XMS_ITS | Encounter Summary ---
Author Organization [facility] Address [address] [place] [address] Phone Care Team Providers Care Card Grinder Helper Name Role Phone Sharan Linton MD Unavailable [phone] Martha Starks MD Unavailable [phone] Shama Hines MD Unavailable Artis Grewal MD Unavailable [phone] Alee Elizondo Primary Care Provider [phone] Amy Mayes NP Unavailable [phone] Shailesh Dunn MD Unavailable [phone] Sangita Farrar Unavailable [phone] Encounter Details Date Type Department Care Team (Late st Contact Info) Description 08/24/2024 Results Follow-Up [facility] [address] [place] [address] Sangita Farrar PA [address] [place] [address] Social History Tobacco Use Types Packs/Day Years Used Date Smoking Tobacco: Never Smokeless Tobacco: Never Comments:Never used Alcohol Use Standard Drinks/Week Comments No 0 (1 standard drink = 0.6 oz pur e alcohol) [facility] Utilities Answer Date Recorded In the [...] often do you attend chur ch or amish services? 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 Female 8:04 PM PLANT SECURITY GUARD Gender Identity Female 02/15/2020 6:08 PM CDT [...] documented as of this encounter Care Teams Card Grinder Helper Relationship Specialty Start Date End Date Alee Elizondo PA 1095 [facility] 500 [place] [address] PCP - General Internal Medicine 07/05/23 Sharan Linton MD Referring Physician Gastroenterology 10/31/18 Martha Starks MD Consulting Physician Cardiology 12/24/20 Shama Hines MD 4700 [facility] [address] Consulting Physician Pain Management 01/19/21 Artis Grewal MD [address] [place] [address] Consulting Physician Rheumatology 01/30/21 Amy Mayes NP [address] [address] Nurse Practitioner Cardiovascular Disease 04/20/24 Shailesh Dunn MD 4600 [facility] [address] [address] Consulting Physician Pulmonary Disease 04/20/24 Sangita Farrar PA [address] [place] [address] Physician Stock Grader Rheumatology 05/15/24 documented as of this encounter
--- OUTSIDE RECORDS SUMMARY | 2024-10-07 12:15 | XMS_ITS | Continuity of Care Document ---
Author Organization [facility] Address [address] [place] [address] [address] [place] [address] Phone Care Team Providers Care Paper Cutter Operator Name Role Phone Torsten Ramesh Unavailable Unavailable [...] Diagnoses Date Provider Providers Copied on Encounter [facility], [address] [facility], [place], [place], [id number], [place] tel:[phone] Wann No Information 0 5 Muehl Torsten. [address] [facility], [address], [place], [address], [place]. tel: [phone] Referring Provider: Alee Elizondo, [address] [place] [address] [address], [place], [address]. tel:[phone] [facility] [address] [facility], [place], [place], [id number], [place] tel:[phone] Wann No Information 0 4 Muehl Torsten. [address] [place] [address], [address], [place], [address], [place]. tel: [phone] Referring Provider: Alee Elizondo, [address] [place] [address] [address], [place], [address]. tel:[phone] [place] [address] [facility], [place], [place], [id number], [place] tel:[phone] Wann No Information 0 4 Muehl Torsten. [address] [place] [address], [address], [place], [address], [place]. tel: [phone] Referring Provider: Alee Elizondo, [address] [place] [address] Road [address], [place], [address]. tel:[phone] [facility] [address] [facility] [address], [place], [place], [id number], [place] tel:[phone] Wann No Information 2 4 Muehl Torsten. [address] [place] [address], [address], [place], [address], [place]. tel: [phone] Referring Provider: Alee Elizondo, [address] [facility] [address], [place], [address]. tel:[phone] [facility] [facility] [address], [place], [id number], [place] tel:[phone] Wann No Information 4 Muehl Torsten. [address] [facility], [facility] [address], [place], [facility], . tel: [phone] Referring Provider: Alee Elizondo, [address] [place] [address] Road [address], [place], [address]. tel:[phone] [facility] [facility] [address], [place], [id number], [place] tel:[phone] Wann No Information Phill Torsten. [address] [place] [address], [address], [place], [facility], [place]. tel: [phone] Referring Provider: Alee Elizondo, [address] [place] [address] Road [address], [place], [address]. tel:[phone] [facility] [facility] [address], [place], [id number], [place] tel:[phone] Wann No Information Phill Torsten. [address] [place] [address], [address], [place], [facility], [place]. tel: [phone] Referring Provider: Alee Elizondo, [address] [place] [address] Road [address], [place], [address]. tel:[phone] [facility] [facility] [address], [place], [id number], [place] tel:[phone] Wann Lumbago 4 Muehl Torsten. [address] [facility], [address], [address], [place]. tel: [phone] Referring Provider: Alee Elizondo, [facility] [facility] [address], [place], [address]. tel:[phone] Family History Family Member Type Diagnosis Age [...]
--- OUTSIDE RECORDS SUMMARY | 2024-10-07 12:15 | XMS_ITS | Clinical Summary ---
Author Organization [facility] Address [address] [place] [address] Care Team Providers Care Habitat Conservation Planner Name Role Phone Unavailable Primary Care Provider [...] topic Meningococcal Vaccine Aged Out No tammy bnei eligible based on patient's age to complete this topic RSV Immunizations Under 20 Months Aged Out No longer eligible b ased on patient's age to complete this topic
--- OUTSIDE RECORDS SUMMARY | 2024-10-07 12:15 | XMS_ITS | Encounter Summary ---
Author Organization [facility] Facility Care Team Providers Care Electronic Organ Technician Name Role Phone Alee Elizondo Primary Care Provider + [phone] Sharan Linton MD Unavailable +[phone] Tiasha Gomez MD Unavailable +[phone] Parag Soto MD Unavailable [phone] RaziaMartha singh MD Unavailable [phone] Puneet Uribe MD Unavailable +[phone] Shama Hines MD Unavailable Artis Grewal MD Unavailable [phone] Harrison Pena RN Unavailable +[phone] Nafisa Gregg RN Unavailable Tho Kelsey MD Primary Care Provider +[phone] Alee Elizondo Primary Care Provider + [phone] Amy Mayes NP Unavailable +[phone] Shailesh Dunn MD Unavailable +[phone] Sangita Farrar Unavailable +[phone] Encounter Details Date Type Department Care Team (Latest Contact Info) Description 04/19/2016 Orders Only [facility] CLINCONV Provider, MD Tania [address] [place] [address] Social History Tobacco Use Types Packs/Day Years Used Date Smoking Tobacco: Never Alcohol Use Standard Drinks/Week Comments No 0 (1 standard drink = 0.6 oz pur e alcohol) Comments Unknown Sex and Gender Information Value Date Recorded Sex Assigned at Not on file Legal Sex Female 8:04 PM RETURNER Gender Identity Female 02/15/2020 6:08 PM CDT [...] COVID: Suspected 08/13/2021 08/14/2021 08/14/2021 3:06 AM RETURNER COVID: Suspected 08/14/2021 08/14/2021 08/15/2021 3:05 AM RETURNER COVID: Suspected 08/14/2021 08/14/2021 08/15/2021 6:25 AM RETURNER COVID: Suspected 06/02/2023 06/02/2023 06/02/2023 7:25 PM RETURNER COVID: Suspected 07/26/2023 07/26/2023 07/26/2023 3:10 PM RETURNER COVID: Suspected 09/25/2024 09/25/2024 09/25/2024 11:03 AM CDT Influenza, adult 09/25/2024 09/25/2024 10/02/2024 3:05 AM CDT documented as of this encounter Care Teams Electronic Organ Technician Relationship Specialty Start Date End Date Alee Elizondo PA [address] [facility] 500 [place] [address] PCP - General Internal Medicine 02/01/17 06/29/23 Tho Kelsey MD [address] [place] [address] [address] [facility] 300 [place] [address] PCP - General Family Medicine 06/30/23 07/04/23 Alee Elizondo PA [address] [facility] [address] [place] [address] PCP - General Internal Medicine 07/05/23 Sharan Linton MD [address] [facility] [address] [place] [address] Referring Physician Gastroenterology 10/31/18 Taisha Gomez MD [address] [place] [address] [place] [address] Referring Physician Pulmonary Disease 10/31/18 12/23/20 Parag Soto MD [address] [facility] [address] [place] [address] Referring Physician Rheumatology 10/31/18 12/23/20 Martha Starks MD [address] [place] [address] [place] [address] Consulting Physician Cardiology 12/24/20 Puneet Uribe MD [address] [facility] [address] [place] [address] Consulting Physician Rheumatology 12/24/20 01/29/21 Shama Hines MD 4700 [facility], [facility] [address] [place] [address] Consulting Physician Pain Management 01/19/21 Artis Grewal MD [address] [place] [address] Consulting Physician Rheumatology 01/30/21 Harrison Pena, JULIUS [address] [place] [address] Director Of Science 05/30/23 09/04/23 Nafisa Gregg, JULIUS [address] [place] [address] [facility] [address] [place] [address] Director Of Science 06/06/23 06/12/23 Amy Mayes NP [address] [address] Nurse Practitioner Cardiovascular Disease 04/20/24 Shailesh Dunn MD 4600 [facility] 200 [place] [address] Consulting Physician Pulmonary Disease 04/20/24 Sangita Farrar PA [address] [place] [address] Physician Sign Carpenter Rheumatology 05/15/24 documented as of this encounter
--- OUTSIDE RECORDS SUMMARY | 2024-10-07 12:15 | XMS_ITS | Encounter Summary ---
Author Organization [facility] Facility Care Team Providers Care Ribbon Inker Name Role Phone Alee Elizondo Primary Care Provider + [phone] Sharan Linton MD Unavailable [phone] Taisha Gomez MD Unavailable +[phone] Parag Soto MD Unavailable [phone] RaziaMarhta singh MD Unavailable [phone] Puneet Uribe MD Unavailable +[phone] Shama Hines MD Unavailable Artis Grewal MD Unavailable [phone] Harrison Pena RN Unavailable +[phone] Nafisa Gregg RN Unavailable +[phone] Tho Kelsey MD Primary Care Provider [phone] Alee Elizondo Primary Care Provider + [phone] Amy Mayes NP Unavailable +[phone] Shailesh Dunn MD Unavailable +[phone] Sangita Farrar Unavailable +[phone] Encounter Details Date Type Department Care Team (Latest Contact Info) Description 03/24/2016 Orders Only [facility] CLINCONV Provider, MD Tania [address] [place] [address] Social History Tobacco Use Types Packs/Day Years Used Date Smoking Tobacco: Never Alcohol Use Standard Drinks/Week Comments No 0 (1 standard drink = 0.6 oz pur e alcohol) Comments Unknown Sex and Gender Information Value Date Recorded Sex Assigned at Not on file Legal Sex Female 8:04 PM SOCK TURNER Gender Identity Female 02/15/2020 6:08 PM CDT [...] COVID: Suspected 08/13/2021 08/14/2021 08/14/2021 3:06 AM SOCK TURNER COVID: Suspected 08/14/2021 08/14/2021 08/15/2021 3:05 AM SOCK TURNER COVID: Suspected 08/14/2021 08/14/2021 08/15/2021 6:25 AM SOCK TURNER COVID: Suspected 06/02/2023 06/02/2023 06/02/2023 7:25 PM SOCK TURNER COVID: Suspected 07/26/2023 07/26/2023 07/26/2023 3:10 PM SOCK TURNER COVID: Suspected 09/25/2024 09/25/2024 09/25/2024 11:03 AM CDT Influenza, adult 09/25/2024 09/25/2024 10/02/2024 3:05 AM CDT documented as of this encounter Care Teams Ribbon Inker Relationship Specialty Start Date End Date Alee Elizondo PA 10[address] [facility] 500 [place] [address] PCP - General Internal Medicine 02/01/17 06/29/23 Tho Kelsey MD [address] [place] [address] [address] [facility] 300 [place] [address] PCP - General Family Medicine 06/30/23 07/04/23 Alee Elizondo PA [address] [place] [address] [place] [address] PCP - General Internal Medicine 07/05/23 Sharan Linton MD [address] [facility] [address] [place] [address] Referring Physician Gastroenterology 10/31/18 Taisha Gomez MD [address] [place] [address] [place] [address] Referring Physician Pulmonary Disease 10/31/18 12/23/20 Parag Soto MD [address] [facility] [address] [place] [address] Referring Physician Rheumatology 10/31/18 12/23/20 Martha Starks MD [address] [facility] [address] [place] [address] Consulting Physician Cardiology 12/24/20 Puneet Uribe MD [address] [facility] [address] [place] [address] Consulting Physician Rheumatology 12/24/20 01/29/21 Shama Hines MD 4700 [facility], [facility] 230 [place] [address] Consulting Physician Pain Management 01/19/21 Artis Grewal MD [address] [place] [address] Consulting Physician Rheumatology 01/30/21 Harrison Pena, JULIUS [address] [place] [address] Front End Developer Javascript Html Css 05/30/23 09/04/23 Nafisa Gregg, JULIUS [address] [place] [address] [facility] [address] [place] [address] Front End Developer Javascript Html Css 06/06/23 06/12/23 Amy Mayes NP [address] [address] Nurse Practitioner Cardiovascular Disease 04/20/24 Shailesh Dunn MD 4600 [facility] 200 [place] [address] Consulting Physician Pulmonary Disease 04/20/24 Sangita Farrar PA [address] [place] [address] Physician Warehouse Delivery Manager Rheumatology 05/15/24 documented as of this encounter
--- OUTSIDE RECORDS SUMMARY | 2024-10-07 12:15 | XMS_ITS | Clinical Summary ---
Author Organization [facility] [employer] Address [address] [facility] [place] [address] Care Team Providers Care Traveling Clerk Name Role Phone Darvin Harden MD Primary Care Provider [phone] Source Comments [facility] [employer],non-owned Affiliates and Associated Physician Practices is amultiple site organization consisting of ambulatory clinics and hospital sitesin [place], [place], [place]. This disclosure is being madepursuant to the Care Everywhere program and may not contain all information available regarding this patient. Last updated 18.[facility] [employer] Allergies Active Allergy Reactions Criticality Noted Date [...] fluticasone propionate (Flonase) 50 MCG/ACT nasal spray [place] 2 (two) sprays into the nose once [...] age to complete this topic Care Teams Traveling Clerk Relationship Specialty Start Date End Date Darvin Harden MD [address] [place] [address] PCP - General 07/11/19
--- OUTSIDE RECORDS SUMMARY | 2024-10-07 12:15 | XMS_ITS | Continuity of Care Document ---
Author Organization [facility] Address [id number] [place] [address] [place] [address] Phone Care Team Providers Care Nurse Midwife Name Role Phone Oswald No DO Unavailable Unavailable Advance Directives Directive Yes / No Effective Date File Name No Information Encounters Encounter Description Practice Location Reason(s) For Visit Diagnoses Date Provider Providers Copied on Encounter [facility], [id number] [place] [address] [address], [place], [place], [id number], [place] tel:[phone] [facility] No Information Oneal Combs. [address] [facility], [place], [address], [place]. tel: [phone] Family History Family Member Type Diagnosis Age [...]
--- OUTSIDE RECORDS SUMMARY | 2024-10-07 12:15 | XMS_ITS | Encounter Summary ---
Author Organization [facility] Facility Care Team Providers Care Front Office Associate Name Role Phone Alee Elizondo Primary Care Provider + [phone] Sharan Linton MD Unavailable [phone] Taisha Gomez MD Unavailable [phone] Parag Soto MD Unavailable [phone] RaziaMartha singh MD Unavailable [phone] Puneet Uirbe MD Unavailable +[phone] Shama Hines MD Unavailable Artis Grewal MD Unavailable [phone] Harrison Pena RN Unavailable +[phone] Nafisa Gregg RN Unavailable [phone] Tho Kelsey MD Primary Care Provider [phone] Alee Elizondo Primary Care Provider + [phone] Amy Mayes NP Unavailable +[phone] Shailesh Dunn MD Unavailable [phone] Sangita Farrar Unavailable +[phone] Encounter Details Date Type Department Care Team (Latest Contact Info) Description 11/04/2015 Orders Only [facility] CLINCONV Provider, MD Tania [address] [place] [address] Social History Tobacco Use Types Packs/Day Years Used Date Smoking Tobacco: Never Assessed Comments Unknown Sex and Gender Information Value Date Recorded Sex Assigned at Not on file Legal 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 Gender Identity Female 02/15/2020 6:08 PM [...] COVID: Suspected 08/13/2021 08/14/2021 08/14/2021 3:06 AM LIME HIDE INSPECTOR COVID: Suspected 08/14/2021 08/14/2021 08/15/2021 3:05 AM LIME HIDE INSPECTOR COVID: Suspected 08/14/2021 08/14/2021 08/15/2021 6:25 AM LIME HIDE INSPECTOR COVID: Suspected 06/02/2023 06/02/2023 06/02/2023 7:25 PM LIME HIDE INSPECTOR COVID: Suspected 07/26/2023 07/26/2023 07/26/2023 3:10 PM LIME HIDE INSPECTOR COVID: Suspected 09/25/2024 09/25/2024 09/25/2024 11:03 AM CDT Influenza, adult 09/25/2024 09/25/2024 10/02/2024 3:05 AM CDT documented as of this encounter Care Teams Front Office Associate Relationship Specialty Start Date End Date Alee Elizondo PA 1095 [facility] 500 [place] [address] PCP - General Internal Medicine 02/01/17 06/29/23 Tho Kelsey MD [address] [place] [address] [address] [facility] [address] [place] [address] PCP - General Family Medicine 06/30/23 07/04/23 Alee Elizondo PA [address] [place] [address] [place] [address] PCP - General Internal Medicine 07/05/23 Sharan Linton MD [address] [facility] [address] [place] [address] Referring Physician Gastroenterology 10/31/18 Taisha Gomez MD [address] [place] [address] [place] [address] Referring Physician Pulmonary Disease 10/31/18 12/23/20 Parag Soto MD [address] [facility] [address] [place] [address] Referring Physician Rheumatology 10/31/18 12/23/20 Martha Starks MD [address] [facility] [address] [place] [address] Consulting Physician Cardiology 12/24/20 Puneet Uribe MD [address] [facility] [address] [place] [address] Consulting Physician Rheumatology 12/24/20 01/29/21 Shama Hines MD 4700 [facility], [facility] 230 [place] [address] Consulting Physician Pain Management 01/19/21 Artis Grewal MD [address] [place] [address] Consulting Physician Rheumatology 01/30/21 Harrison Pena, JULIUS [address] [place] [address] Order Detailer 05/30/23 09/04/23 Nafisa Gregg RN [address] [place] [address] [address] [place] [address] Order Detailer 06/06/23 06/12/23 Amy Mayes NP [address] [address] Nurse Practitioner Cardiovascular Disease 04/20/24 Shailesh Dunn MD [address] [address] Consulting Physician Pulmonary Disease 04/20/24 Sangita Farrar PA [address] [place] [address] Physician Bike Designer Rheumatology 05/15/24 documented as of this encounter
--- OUTSIDE RECORDS SUMMARY | 2024-10-07 12:15 | XMS_ITS | Encounter Summary ---
Author Organization [facility] Healthcare Address [address] [place] [address] Care Team Providers Care Truck Rental Manager Name Role Phone Sharan Linton MD Unavailable [phone] Martha Starks MD Unavailable [phone] Shama Hines MD Unavailable Artis Grewal MD Unavailable [phone] Alee Elizondo Primary Care Provider +[phone] Amy Mayes NP Unavailable +[phone] Shailesh Dunn MD Unavailable [phone] Sangita Farrar Unavailable [phone] Encounter Details Date Type Department Care Team (Late st Contact Info) Description 10/11/2023 Orders Only [facility] Health Information Management [address] [place] [address] Scanning, Provider Social History Tobacco Use Types [...] you attend chur ch or sikhism services? 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 Gender Identity Female 02/15/2020 6:08 PM CDT [...] documented as of this encounter Care Teams Truck Rental Manager Relationship Specialty Start Date End Date Alee Elizondo PA 1095 [facility] 500 [place] [address] PCP - General Internal Medicine 07/05/23 Sharan Linton MD Referring Physician Gastroenterology 10/31/18 Martha Starks MD Consulting Physician Cardiology 12/24/20 Shama Hines MD [address] [place] [address] [facility], [facility] [address] [place] [address] Consulting Physician Pain Management 01/19/21 Artis Grewal MD [address] [place] [address] Consulting Physician Rheumatology 01/30/21 Amy Mayes NP [address] [address] Nurse Practitioner Cardiovascular Disease 04/20/24 Shailesh Dunn MD 4600 [facility] [address] [address] Consulting Physician Pulmonary Disease 04/20/24 Sangita Farrar PA [address] [place] [address] Physician Financial Manager Rheumatology 05/15/24 documented as of this encounter
--- OUTSIDE RECORDS SUMMARY | 2024-10-07 12:15 | XMS_ITS | Encounter Summary ---
Author Organization [facility] Healthcare Address [address] [place] [address] Care Team Providers Care Doctor Of Dental Medicine Name Role Phone Sharan Linton MD Unavailable [phone] Martha Starks MD Unavailable [phone] Shama Hines MD Unavailable Artis Grewal MD Unavailable [phone] Alee Elizondo Primary Care Provider [phone] Amy Mayes NP Unavailable +[phone] Shailesh Dunn MD Unavailable [phone] Sangita Farrar Unavailable [phone] Reason for Visit * Reason Onset Date Comments Medical Question/Miscellaneous 09/25/2024 Encounter Details Date Type Department Care Team (Late st Contact Info) Description 09/25/2024 Results Follow-Up [facility] Medical Group Family Medicine [address] [facility] [address] [place] [address] Alee Elizondo PA [address] [facility] [address] [place] [address] [place] [address] Social History Tobacco Use Types Packs/Day Years Used Date Smoking Tobacco: Never Smokeless Tobacco: Never Comments:Never used Alcohol Use Standard Drinks/Week Comments No 0 (1 standard drink = 0.6 oz pur e alcohol) [facility] Utilities Answer Date Recorded In the [...] you attend chur ch or zoroastrianism services? 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 Gender Identity Female 02/15/2020 6:08 PM CDT [...] documented as of this encounter Care Teams Doctor Of Dental Medicine Relationship Specialty Start Date End Date Alee Elizondo PA [address] [facility] 500 [place] [address] PCP - General Internal Medicine 07/05/23 Sharan Linton MD Referring Physician Gastroenterology 10/31/18 Martha Starks MD Consulting Physician Cardiology 12/24/20 Shama Hines MD [address]00 [facility] [address] Consulting Physician Pain Management 01/19/21 Artis Grewal MD [address] [place] [address] Consulting Physician Rheumatology 01/30/21 Amy Mayes NP [address] [facility] [address] [place] [address] [address] [place] [address] Nurse Practitioner Cardiovascular Disease 04/20/24 Shailesh Dunn MD [address] [address] Consulting Physician Pulmonary Disease 04/20/24 Sangita Farrar PA [address] [place] [address] Physician Talent Acquisition Operations Manager Rheumatology 05/15/24 documented as of this encounter
--- OUTSIDE RECORDS SUMMARY | 2024-10-07 12:15 | XMS_ITS | Encounter Summary ---
Author Organization [facility] Healthcare Address [address] [place] [address] Care Team Providers Care Publicity Person Name Role Phone Sharan Linton MD Unavailable [phone] Martha Starks MD Unavailable [phone] Shama Hines MD Unavailable Artis Grewal MD Unavailable [phone] Alee Elizondo Primary Care Provider [phone] Amy Mayes NP Unavailable [phone] Shailesh Dunn MD Unavailable [phone] Sangita Farrar Unavailable [phone] Encounter Details Date Type Department Care Team (Late st Contact Info) Description 09/04/2024 Results Follow-Up [facility] Medical Group Family Medicine [address] [place] [address] Alee Elizondo PA [address] [facility] [address] [place] [place] [address] Social History Tobacco Use Types Packs/Day Years Used Date Smoking Tobacco: Never Smokeless Tobacco: Never Comments:Never used Alcohol Use Standard Drinks/Week Comments No 0 (1 standard drink = 0.6 oz pur e alcohol) [facility] Utilities Answer Date Recorded In the past 12 months has [employer], oil, or water [employer] threatened to shut off services in your [...] often do you attend chur ch or synagogue services? 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 Gender Identity Female 02/15/2020 6:08 PM CDT [...] documented as of this encounter Care Teams Publicity Person Relationship Specialty [place] [address] [place] [address] PCP - General Internal Medicine 07/05/23 Sharan Linton MD Referring Physician Gastroenterology 10/31/18 Martha Starks MD Consulting Physician Cardiology 12/24/20 Shama Hines MD [address]00 [facility], [address] [address] Consulting Physician Pain Management 01/19/21 Artis Grewal MD [address] [place] [address] Consulting Physician Rheumatology 01/30/21 Amy Mayes NP [address] [address] Nurse Practitioner Cardiovascular Disease 04/20/24 Shailesh Dunn MD [address] [address] Consulting Physician Pulmonary Disease 04/20/24 Sangita Farrar PA [address] [place] [address] Physician Assignment Clerk Rheumatology 05/15/24 documented as of this encounter
--- OUTSIDE RECORDS SUMMARY | 2024-10-07 12:15 | XMS_ITS | Encounter Summary ---
Author Organization [facility] Facility Care Team Providers Care French Binding Folder Name Role Phone Alee Elizondo Primary Care Provider + [phone] Sharan Linton MD Unavailable [phone] Taisha Gomez MD Unavailable +[phone] Parag Soto MD Unavailable [phone] RaziaMartha singh MD Unavailable +[phone] Puneet Urbie MD Unavailable +[phone] Shama Hines MD Unavailable Arits Grewal MD Unavailable [phone] Harrison Pena RN Unavailable [phone] Nafisa Gregg RN Unavailable Tho Kelsey MD Primary Care Provider [phone] Alee Elizondo Primary Care Provider + [phone] Amy Mayes NP Unavailable [phone] Shailesh Dunn MD Unavailable [phone] Sangita Farrar Unavailable +[phone] Encounter Details Date Type Department Care Team (Latest Contact Info) Description 12/31/2015 Orders Only [facility] CLINCONV Provider, MD Tania [address] [place] [address] Social History Tobacco Use Types Packs/Day Years Used Date Smoking Tobacco: Never Alcohol Use Standard Drinks/Week Comments No 0 (1 standard drink = 0.6 oz pur e alcohol) Comments Unknown Sex and Gender Information Value Date Recorded Sex Assigned at Not on file Legal 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 Female 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 Gender Identity Female 02/15/2020 6:08 PM CDT [...] COVID: Suspected 08/13/2021 08/14/2021 08/14/2021 3:06 AM ELASTIC YARN TWISTER COVID: Suspected 08/14/2021 08/14/2021 08/15/2021 3:05 AM ELASTIC YARN TWISTER COVID: Suspected 08/14/2021 08/14/2021 08/15/2021 6:25 AM ELASTIC YARN TWISTER COVID: Suspected 06/02/2023 06/02/2023 06/02/2023 7:25 PM ELASTIC YARN TWISTER COVID: Suspected 07/26/2023 07/26/2023 07/26/2023 3:10 PM ELASTIC YARN TWISTER COVID: Suspected 09/25/2024 09/25/2024 09/25/2024 11:03 AM CDT Influenza, adult 09/25/2024 09/25/2024 10/02/2024 3:05 AM CDT documented as of this encounter Care Teams French Binding Folder Relationship Specialty Start Date End Date Alee Elizondo PA [address] [facility] [address] [place] [address] PCP - General Internal Medicine 02/01/17 06/29/23 Tho Kelsey MD [address] [place] [address] [address] [facility] [address] [place] [address] PCP - General Family Medicine 06/30/23 07/04/23 Alee Elizondo PA [address] [facility] [address] [place] [address] PCP - General Internal Medicine 07/05/23 Sharan Linton MD [address] [facility] [address] [place], [place] [id number] Referring Physician Gastroenterology 10/31/18 Taisha Gomez MD [address] [facility] [address] [place], [place] [id number] Referring Physician Pulmonary Disease 10/31/18 12/23/20 Parag Soto MD [address] [facility] [address] [place] [address] Referring Physician Rheumatology 10/31/18 12/23/20 Martha Starks MD [address] [facility] [address] [place], [place] [id number] Consulting Physician Cardiology 12/24/20 Puneet Uribe MD [address] [facility] [address] [place] [address] Consulting Physician Rheumatology 12/24/20 01/29/21 Shama Hines MD [address] [facility], [facility] [address] [place] [address] Consulting Physician Pain Management 01/19/21 Artis Grewal MD [address] [place] [address] Consulting Physician Rheumatology 01/30/21 Harrison Pena, JULIUS [address] [place] [address] Dynamometer Tuner 05/30/23 09/04/23 Nafisa Gregg, JULIUS [address] [place] [address] [facility] [address] [place] [address] Dynamometer Tuner 06/06/23 06/12/23 Amy Mayes NP [address] [address] Nurse Practitioner Cardiovascular Disease 04/20/24 Shailesh Dunn MD [address] [address] Consulting Physician Pulmonary Disease 04/20/24 Sangita Farrar PA [address] [place] [address] Physician Director Of Medical Staff Services Rheumatology 05/15/24 documented as of this encounter
--- OUTSIDE RECORDS SUMMARY | 2024-10-07 12:16 | XMS_ITS | Encounter Summary ---
Author Organization [facility] Facility Care Team Providers Care Picture Engraver Name Role Phone Alee Elizondo Primary Care Provider + [phone] Sharan Linton MD Unavailable [phone] Taisha Gomez MD Unavailable [phone] Parag Soto MD Unavailable [phone] RaziaMartha singh MD Unavailable [phone] Puneet Uribe MD Unavailable Shama Hines MD Unavailable Artis Grewal MD Unavailable [phone] Harrison Pena RN Unavailable [phone] Nafisa Gregg RN Unavailable Tho Kelsey MD Primary Care Provider [phone] Alee Elizondo Primary Care Provider + [phone] Amy Mayes NP Unavailable [phone] Shailesh Dunn MD Unavailable [phone] Sangita Farrar Unavailable [phone] Encounter Details Date Type Department Care Team (Latest Contact Info) Description 06/28/2016 Orders Only [facility] CLINCONV Provider, MD Tania [address] [place] [address] Social History Tobacco Use Types Packs/Day Years Used Date Smoking Tobacco: Never Alcohol Use Standard Drinks/Week Comments No 0 (1 standard drink = 0.6 oz pur e alcohol) Comments Unknown Sex and Gender Information Value Date Recorded Sex Assigned at Not on file Legal Sex Female 8:04 PM CONTROL CHEMIST Gender Identity Female 02/15/2020 6:08 PM CDT Sexual Orientation Not on file documented as of this encounter Plan of Treatment Not on file documented as of this encounter Procedures Procedure Name Priority Date/Time Associated Diagnosis Comments SCAN - LABS 06/29/2016 12:00 AM CONTROL CHEMIST documented in this encounter Results * SCAN - LABS (06/29/2016 12:00 AM CONTROL CHEMIST) Narrative 06/29/2016 12:00 AM CONTROL CHEMIST Ordered by an unspecified provider. Historical Provider MD Final Res ult documented in this encounter Visit Diagnoses Not on filedocumented in this encounter Additional Health Concerns Infection Onset Date Last Indicated Resolved Time COVID: Suspected 08/13/2021 08/14/2021 08/14/2021 3:06 AM CONTROL CHEMIST COVID: Suspected 08/14/2021 08/14/2021 08/15/2021 3:05 AM CONTROL CHEMIST COVID: Suspected 08/14/2021 08/14/2021 08/15/2021 6:25 AM CONTROL CHEMIST COVID: Suspected 06/02/2023 06/02/2023 06/02/2023 7:25 PM CONTROL CHEMIST COVID: Suspected 07/26/2023 07/26/2023 07/26/2023 3:10 PM CONTROL CHEMIST COVID: Suspected 09/25/2024 09/25/2024 09/25/2024 11:03 AM CDT Influenza, adult 09/25/2024 09/25/2024 10/02/2024 3:05 AM CDT documented as of this encounter Care Teams Picture Engraver Relationship Specialty Start Date End Date Alee Elizondo PA [address] [facility] 500 [place] [address] PCP - General Internal Medicine 02/01/17 06/29/23 Tho Kelsey MD [address] [place] [address] [address] [facility] [address] [place] [address] PCP - General Family Medicine 06/30/23 07/04/23 lAee Elizondo PA [address] [place] [address] [place] [address] PCP - General Internal Medicine 07/05/23 Sharan Linton MD [address] [place] [address] [place] [address] Referring Physician Gastroenterology 10/31/18 Taisha Gomez MD [address] [place] [address] [place] [address] Referring Physician Pulmonary Disease 10/31/18 12/23/20 Parag Soto MD [address] [place] [address] [place] [address] Referring Physician Rheumatology 10/31/18 12/23/20 Martha Starks MD [address] [place] [address] [place] [address] Consulting Physician Cardiology 12/24/20 Puneet Uribe MD [address] [facility] [address] [place] [address] Consulting Physician Rheumatology 12/24/20 01/29/21 Shama Hines MD [address] [facility], [place] [address] [place] [address] Consulting Physician Pain Management 01/19/21 Artis Grewal MD [address] [place] [address] Consulting Physician Rheumatology 01/30/21 Harrison Pena, JULIUS [address] [place] [address] Alfalfa Dehydrator Operator 05/30/23 09/04/23 Nafisa Gregg, JULIUS [address] [place] [address] [facility] [address] [place] [address] Alfalfa Dehydrator Operator 06/06/23 06/12/23 Amy Mayes NP [address] [facility] [address] [place] [address] Nurse Practitioner Cardiovascular Disease 04/20/24 Shailesh Dunn MD [address] [facility] [address] [place] [address] Consulting Physician Pulmonary Disease 04/20/24 Sangita Farrar PA [address] [place] [address] Physician Pan Cleaner Rheumatology 05/15/24 documented as of this encounter
--- OUTSIDE RECORDS SUMMARY | 2024-10-07 12:16 | XMS_ITS | Encounter Summary ---
Author Organization [facility] Healthcare Address [address] [place] [address] Care Team Providers Care Manager Utilization Name Role Phone Sharan Linton MD Unavailable [phone] Martha Starks MD Unavailable [phone] Shama Hines MD Unavailable Artis Grewal MD Unavailable [phone] Alee Elizondo Primary Care Provider [phone] Amy Mayes NP Unavailable [phone] Shailesh Dunn MD Unavailable [phone] Sangita Farrar Unavailable [phone] Encounter Details Date Type Department Care Team (Late st Contact Info) Description 10/04/2024 Orders Only [facility] Medical Group Family Medicine [address] [facility] [address] [place] [address] Provider, MD Tania [address] [place] [address] Social History Tobacco Use Types Packs/Day Years Used Date Smoking Tobacco: Never Smokeless Tobacco: Never Comments:Never used Alcohol Use Standard Drinks/Week Comments No 0 (1 standard drink = 0.6 oz pur e alcohol) [facility] Utilities Answer Date Recorded In [...] any time in the past 12 [facility], were you homeless or living [...] on file 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 Gender Identity Female 02/15/2020 6:08 PM CDT Sexual Orientation Not on file documented as of this encounter Plan of Treatment Not on file documented as of this encounter Visit Diagnoses Not on filedocumented in this encounter Care Teams Manager Utilization Relationship Specialty Start Date End Date Alee Elizondo PA [address] [address] PCP - General Internal Medicine 07/05/23 Sharan Linton MD Referring Physician Gastroenterology 10/31/18 Martha Starks MD Consulting Physician Cardiology 12/24/20 Shama Hines MD [address] [facility] [address] Consulting Physician Pain Management 01/19/21 Artis Grewal MD [address] [place] [address] Consulting Physician Rheumatology 01/30/21 Amy Mayes NP [address] [address] Nurse Practitioner Cardiovascular Disease 04/20/24 Shailesh Dunn MD [address] [address] Consulting Physician Pulmonary Disease 04/20/24 Sangita Farrar PA [address] [place] [address] Physician Grip Wrapper Rheumatology 05/15/24 documented as of this encounter
--- OUTSIDE RECORDS SUMMARY | 2024-10-07 12:16 | XMS_ITS | Referral Summary ---
Author Organization [facility] [address] Address [address] [place] [address] Care Team Providers Care Association Executive Name Role Phone Sharan Linton MD Unavailable [phone] Martha Starks MD Unavailable [phone] Shama Hines MD Unavailable Artis Grewal MD Unavailable [phone] Alee Elizondo Primary Care Provider [phone] Amy Mayes NP Unavailable [phone] Shailesh Dunn MD Unavailable [phone] Sangita Farrar Unavailable [phone] Encounters Date Type Department Care Team Description 10/04/2024 Results Follow-Up [facility] [address] [place] [address] Road [address] [place] [address] Alee Elizondo PA 10/04/2024 Orders Only [facility] [address] [place] [address] Road [address] [place] [address] Provider, MD Tania 10/03/2024 Telephone [facility] Medicine [address] [place] [address] Alee Elizondo PA 09/26/2024 Orders Only [facility] [address] [facility] [address] [place] [address] Alee Elizondo PA Breast cancer screening by mammogram (Primary Dx) 09/25/2024 Results Follow-Up [facility] Medicine [address] [place] [address] [address] [place] [address] Alee Elizondo PA 09/25/2024 11:00 AM CDT Office Visit [facility] at [address] [phone] Jessica Collins NP Influenza A (Primary Dx); Acute cough 09/20/2024 Telephone [facility] Orthopedics and Sports Medicine [address] [place] [address] [place] [phone] Michael Motta MD med clarification 09/20/2024 8:00 AM CDT Office Visit [facility] Cardiology [address] [place] [phone] Devika Marin MD Venous insufficiency (chronic) (peripheral) (Primary Dx); Mixed hyperlipidemia 09/14/[address] [phone] Codi Branham 09/13/2024 1:44 PM CDT - 09/13/2024 11:59 PM CDT Hospital Encounter [facility] Diag Imaging [address] [place] [phone] Chronic pain of right knee Discharge Disposition: Discharge to home or self care 09/13/2024 2:45 PM CDT Office Visit [facility] Orthopedics and Sports Medicine [address] [place] [address] [place] [phone] Michael Motta MD Chronic pain of right knee (Primary Dx); History of total knee arthroplasty, right 09/04/2024 Results Follow-Up [facility] Medicine [address] [place] [address] [place] [phone] Alee Elizondo PA 08/31/[address] [place] [phone] Alee Elizondo PA Medical Question/Miscellaneou s 08/31/2024 Orders Only [address] [phone] Provider, MD Tania 08/29/2024 Nurse Triage [address] [phone] Alee Elizondo PA 08/29/[address] [address] Shailesh Dunn MD Med Refill (Ropinirol HCL 0.5MG tab) 08/24/2024 Results Follow-Up [address] [phone] Sangita Farrar PA 08/23/[address] [facility] [address] [place] [address] Alee Elizondo PA 08/23/[address] [phone] Sangita Farrar PA Orencia Approved 08/23/2024 11:30 AM VOLUNTEER MANAGER Office Visit [address] [phone] Sangita Farrar PA 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) (Primary Dx); Primary osteoarthritis involving multiple joints; Encounter for medication monitoring 08/21/[address] [phone] Codi Branham 08/02/2024 Telephone [facility] Pulmonary [address] [phone] Shailesh Dunn MD Orders Only 08/02/2024 11:45 AM VOLUNTEER MANAGER Office Visit [facility] Pulmonary [place] [address] [facility] [address] [place] [phone] Magaly Snider NP OWEN on CPAP (Primary Dx); OWEN (obstructive sleep apnea); PLMD (periodic limb movement disorder) 08/01/2024 Orders Only [address] [place] [phone] Alee Elizondo PA Pre-diabetes (Primary Dx); Mixed hyperlipidemia; Fatigue, unspecified type 07/30/2024 9:00 AM VOLUNTEER MANAGER Office Visit [address] [phone] Sanigta Farrar PA 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) (Primary Dx); Primary osteoarthritis involving multiple joints; Encounter for medication monitoring 07/24/2024 1:27 PM VOLUNTEER MANAGER - 07/24/2024 11:59 PM VOLUNTEER MANAGER Hospital Encounter [facility] Diag Imaging [address] [place] [phone] Status post total knee replacement using cement, right Discharge Disposition: Discharge to home or self care 07/24/[address] [phone] Alee Elizondo PA Referral Request (/) 07/24/2024 2:00 PM VOLUNTEER MANAGER Office Visit [facility] Orthopedics and Sports Medicine [address] [place] [phone] Michael Motta MD Status post total knee replacement using cement, right (Primary Dx) 07/12/2024 Telephone [facility] Orthopedics and Sports Medicine [address] [place] [phone] Michael Motta MD ret call from Last [...] 05/07/20 Assessment & Plan (05/07/2024 8:57 PM VOLUNTEER MANAGER): I have examined this patient and [...] She has had evaluation by Urology at [facility] and has been told there [...] 08/03/2023 Assessment & Plan (05/07/2024 8:56 PM VOLUNTEER MANAGER): Discussed the patient's BMI. The BMI [...] provided. Assessment & Plan (09/06/2023 9:38 AM VOLUNTEER MANAGER): Discussed the patient's BMI. The BMI is above average. BMI management plan is completed. BMI Follow-up includes: nutrition counseling, exercise counseling and education provided. Patient has an obesity-related condition (not limited to: hypertension, obstructive sleep apnea, osteoarthritis, hyperlipidemia, diabetes, etc.). Therefore, morbid obesity may be documented for patients with a BMI between 35.00-39.99. Assessment & Plan (08/07/2023 7:51 PM VOLUNTEER MANAGER): Discussed the patient's BMI. The BMI is above average. BMI management plan is completed. BMI Follow-up includes: nutrition counseling, exercise counseling and education provided. Patient has an obesity-related condition (not limited to: hypertension, obstructive sleep apnea, osteoarthritis, hyperlipidemia, diabetes, etc.). Therefore, morbid obesity may be documented for patients with a BMI between 35.00-39.99. Assessment & Plan (08/03/2023 7:45 AM VOLUNTEER MANAGER): Discussed the patient's BMI. The BMI is above average. BMI management plan is completed. BMI Follow-up includes: nutrition counseling, exercise counseling and education provided. Primary osteoarthritis of right knee 07/08/2023 Assessment & Plan (05/07/2024 8:56 PM VOLUNTEER MANAGER): Patient has arthritis in the right knee. Planning a total knee replacement with Dr. Alexus Motta on May 30 Assessment & Plan (08/03/2023 8:28 AM VOLUNTEER MANAGER): Continue per ortho. She is seeing some improvement but it is difficult to know if the knee is rheumatoid versus osteo versus other etiology. Will await recommendations from JACQUI Raya but definitely encouraged her to become active as soon as possible. Status post total knee replacement using cement, right 05/19/2023 Assessment & Plan (06/02/2023 4:56 PM VOLUNTEER MANAGER): Status post total knee replacement with Dr. Ge Sexton 04 May. She has just been released from rehab following up for her TCM visit. She appears to have an area of cellulitis at the incision site. She is also complaining of increased pain. Will check CBC CMP and inflammatory markers along with an x-ray. She plans to go to [facility] for the workup. Will follow up with [...] provided. Assessment & Plan (06/02/2023 8:27 AM VOLUNTEER MANAGER): Discussed the patients BMI: The BMI [...] 12/20/2022 Assessment & Plan (05/07/2024 8:55 PM VOLUNTEER MANAGER): Patient is on medication for her rheumatoid arthritis managed by [facility] Assessment & Plan (01/22/2024 8:13 PM CDT): Medications from [facility] contribute to her immunosuppressive state. Assessment & Plan (09/06/2023 9:41 AM VOLUNTEER MANAGER): Medications are managed by [facility] for her rheumatoid arthritis Assessment & Plan (04/06/2023 7:44 PM CDT): Managed by [facility]. Currently on Plaquenil methotrexate Orencia folic [...] She has had evaluation by Urology at [facility] and has been told there [...] capacity. Assessment & Plan (09/06/2023 9:41 AM VOLUNTEER MANAGER): Continue per . She did not [...] Pate. Assessment & Plan (07/18/2022 10:20 AM VOLUNTEER MANAGER): CT revealed pelvic lipomatosis that is [...] 02/11/2022 Assessment & Plan (09/06/2023 9:41 AM VOLUNTEER MANAGER): No change. Dysfunction of both eustachian tubes 02/11/2022 Myalgia, lower leg 01/11/2022 PLMD (periodic limb movement disorder) Assessment & Plan (08/02/2024 11:49 AM VOLUNTEER MANAGER): Asymptomatic Assessment & Plan (06/22/2022 10:31 AM VOLUNTEER MANAGER): Will continue Requip 1 mg nightly [...] bedtime. Assessment & Plan (07/13/2021 11:25 AM VOLUNTEER MANAGER): Due to the patient stating that [...] 06/04/2020 Assessment & Plan (08/23/2024 10:16 AM VOLUNTEER MANAGER): Hepatitis negative 06/2020 Tspot negative 06/2020 Continue routine lab monitoring Maintain routine eye exams throughout the duration of taking hydroxychloroquine Assessment & Plan (07/30/2024 8:24 AM VOLUNTEER MANAGER): Hepatitis negative 06/2020 Tspot negative 06/2020 [...] hydroxychloroquine Assessment & Plan (09/01/2023 8:34 AM VOLUNTEER MANAGER): Hepatitis negative 06/2020 Tspot negative 06/2020 Continue routine lab monitoring Maintain routine eye exams throughout the duration of taking hydroxychloroquine Assessment & Plan (06/29/2023 2:19 PM VOLUNTEER MANAGER): Hepatitis negative 06/2020 Tspot negative 06/2020 [...] hydroxychloroquine Assessment & Plan (07/14/2022 2:58 PM VOLUNTEER MANAGER): Hepatitis negative 06/2020 Tspot negative 06/2020 Continue routine lab monitoring Maintain routine eye exams throughout the duration of taking hydroxychloroquine Assessment & Plan (06/03/2022 9:58 AM VOLUNTEER MANAGER): Hepatitis negative 06/2020 Tspot negative 06/2020 [...] hydroxychloroquine Assessment & Plan (09/03/2021 8:29 AM VOLUNTEER MANAGER): Hepatitis negative 06/2020 Tspot negative 06/2020 Continue routine lab monitoring Maintain routine eye exams throughout the duration of taking hydroxychloroquine Assessment & Plan (06/03/2021 4:17 PM VOLUNTEER MANAGER): Hepatitis negative 06/2020 Tspot negative 06/2020 [...] hydroxychloroquine Assessment & Plan (09/02/2020 1:16 PM VOLUNTEER MANAGER): Hepatitis negative 06/2020 Tspot negative 06/2020 Continue routine lab monitoring Maintain routine eye exams throughout the duration of taking hydroxychloroquine Assessment & Plan (07/09/2020 12:23 PM VOLUNTEER MANAGER): Hepatitis negative 06/2020 Tspot negative 06/2020 Continue routine lab monitoring Maintain routine eye exams throughout the duration of taking hydroxychloroquine Drug-induced constipation 08/13/2019 Assessment & Plan (05/07/2024 8:54 PM VOLUNTEER MANAGER): Patient with chronic constipation. Has been [...] linzess Assessment & Plan (08/13/2019 8:57 AM VOLUNTEER MANAGER): On Movantik with Dr. Soto Herpes zoster without complication 12/13/2018 Assessment & Plan (12/23/2018 10:18 PM CDT): Valtex to pharmacy. She has had shingles in the past. Pre-diabetes 10/31/2018 Assessment & Plan (05/07/2024 8:55 PM VOLUNTEER MANAGER): Pre-diabetes/hyperglycemia is a precursor to Dm. [...] diabetes. Assessment & Plan (09/06/2023 9:40 AM VOLUNTEER MANAGER): Pre-diabetes/hyperglycemia is a precursor to Dm. [...] diabetes. Assessment & Plan (09/11/2021 11:22 PM VOLUNTEER MANAGER): Pre-diabetes/hyperglycemia is a precursor to Dm. Stressed importance of working on diet (decrease your simple sugars and one carbohydrate with each meal) and increase you exercise to achieve weight loss and this will help prevent you from progressing to diabetes. Assessment & Plan (05/29/2021 8:18 PM VOLUNTEER MANAGER): Pre-diabetes/hyperglycemia is a precursor to Dm. [...] diabetes. Assessment & Plan (08/31/2020 9:34 AM VOLUNTEER MANAGER): Pre-diabetes is a precursor to Dm. [...] diabetes. Assessment & Plan (08/13/2019 9:00 AM VOLUNTEER MANAGER): This is a significant, separately identifiable [...] 10/31/2018 Assessment & Plan (05/07/2024 8:54 PM VOLUNTEER MANAGER): Depression symptoms are stable with Wellbutrin XL 150 Cymbalta 60 b.i.d. Assessment & Plan (04/21/2024 8:50 PM CDT): Depression symptoms are stable with the Wellbutrin XL 150 and Cymbalta 60 b.i.d. Assessment & Plan (01/22/2024 8:11 PM CDT): Depression symptoms are stable with Wellbutrin and Cymbalta Assessment & Plan (09/06/2023 9:40 AM VOLUNTEER MANAGER): Depression is stable with Wellbutrin and Cymbalta Assessment & Plan (08/03/2023 8:31 AM VOLUNTEER MANAGER): Stable with Cymbalta 60 and Wellbutrin [...] Cymbalta Assessment & Plan (09/11/2021 11:26 PM VOLUNTEER MANAGER): Continue Wellbutrin and Cymbalta Assessment & Plan (05/29/2021 8:22 PM VOLUNTEER MANAGER): Continue Wellbutrin and Cymbalta Assessment & Plan (05/24/2021 10:39 AM VOLUNTEER MANAGER): Continue Wellbutrin and Cymbalta Assessment & Plan (12/24/2020 9:07 AM CDT): Continue wellbutrin and cymbalta Assessment & Plan (08/31/2020 9:35 AM VOLUNTEER MANAGER): Continue wellbutrin and cymbalta Assessment & Plan (02/18/2020 9:47 PM CDT): Stable with the Cymbalata Assessment & Plan (08/13/2019 8:59 AM VOLUNTEER MANAGER): Stable with Cymbalta and Wellbutrin Assessment [...] regimen. Med list updated to reflect the [id number] one daily and Prozac 40mg. Mixed hyperlipidemia 03/29/2018 Assessment & Plan (05/07/2024 8:54 PM VOLUNTEER MANAGER): Encouraged patient to follow low fat/low [...] statin Assessment & Plan (09/06/2023 9:42 AM VOLUNTEER MANAGER): Encouraged patient to follow low fat/low [...] statin Assessment & Plan (09/11/2021 11:26 PM VOLUNTEER MANAGER): Encouraged patient to follow low fat/low chol diet like the Mediterranean diet. Increase good fats in the diet. Increase exercise. Monitor labs as needed. Continue statin Assessment & Plan (05/29/2021 8:22 PM VOLUNTEER MANAGER): Encouraged patient to follow fat/low chol diet like the Mediterranean diet. Increase good fats in the diet. Increase exercise. Monitor labs as needed. Continue statin Assessment & Plan (05/24/2021 10:39 AM VOLUNTEER MANAGER): Encouraged patient to follow fat/low chol [...] statin Assessment & Plan (08/31/2020 9:34 AM VOLUNTEER MANAGER): Encouraged patient to follow fat/low chol diet like the Mediterranean diet. Increase good fats in the diet. Increase exercise. Monitor labs as needed. Continue statin Assessment & Plan (02/18/2020 9:46 PM CDT): Encouraged patient to continue low fat/low chol diet. Continue exercise. Increase good fats in the diet. Monitor labs as needed. Assessment & Plan (08/13/2019 8:59 AM VOLUNTEER MANAGER): Encouraged patient to continue low fat/low [...] future Assessment & Plan (09/06/2023 9:40 AM VOLUNTEER MANAGER): Continue PPI Assessment & Plan (04/06/2023 7:36 PM CDT): Continue PPI p.r.n. Assessment & Plan (01/20/2023 8:13 PM CDT): Continue PPI Assessment & Plan (09/12/2022 6:13 PM CDT): Continue PPI p.r.n. Assessment & Plan (06/03/2022 3:40 PM VOLUNTEER MANAGER): Pyrosis poorly controlled on Nexium. Pt [...] PPI Assessment & Plan (09/11/2021 11:26 PM VOLUNTEER MANAGER): Continue PPI Assessment & Plan (12/24/2020 9:05 AM CDT): Continue PPI Assessment & Plan (02/18/2020 9:45 PM CDT): Continue PPI. Saw Dr. Linton for increased GERD sxs. If persist, encouraged to followup again with Dr. Linton. Assessment & Plan (08/13/2019 8:58 AM VOLUNTEER MANAGER): Stable with PPI Assessment & Plan [...] exertion) Assessment & Plan (06/22/2022 10:30 AM VOLUNTEER MANAGER): Patient is not currently using inhalers. [...] 10/14/2015 Assessment & Plan (08/02/2024 11:49 AM VOLUNTEER MANAGER): Due to the patient stating the [...] readjusted. She denied need for supplies. DME [facility] patient Assessment & Plan (05/07/2024 8:55 PM VOLUNTEER MANAGER): Continue with CPAP. Assessment & Plan (04/21/2024 8:49 PM CDT): Continue per Dr. Dunn. Has all her needed supplies for CPAP which she is using every night. Continue with Requip 0.5 mg HS for restless leg Assessment & Plan (01/22/2024 8:08 PM CDT): Continue CPAP per Dr. Dunn Assessment & Plan (09/06/2023 9:40 AM VOLUNTEER MANAGER): Continue CPAP Assessment & Plan (06/21/2023 10:14 AM VOLUNTEER MANAGER): Patient continue to wear her CPAP [...] CPAP Assessment & Plan (06/22/2022 10:31 AM VOLUNTEER MANAGER): Will continue CPAP therapy at an auto titrating range of 7-20 cm water pressure. Denied need for supplies. DME [employer] patient Assessment & Plan (05/02/2022 9:15 PM [...] water pressure. Patient denied need for supplies. [employer] patient. Patient is benefitting CPAP Assessment & Plan (09/11/2021 11:22 PM VOLUNTEER MANAGER): Continue CPAP. Patient has all needed supplies. Assessment & Plan (07/13/2021 11:27 AM VOLUNTEER MANAGER): Due to the patient stating she does not have enough pressure in her machine, I have increased the pressure to 13 cm water pressure. The patient denied need for for supplies. DME company [employer] [facility]. Have also ordered a new smart card set at 13 cm water pressure. Benefitting from CPAP therapy Assessment & Plan (05/29/2021 8:14 PM VOLUNTEER MANAGER): Continue CPAP. Assessment & Plan (02/17/2021 11:09 AM CDT): The patient continues to be compliant with her CPAP at 8 cm water pressure. She has developed worsening daytime hypersomnia. She also has morning headaches and dry mouth. I have recommended proceeding with a CPAP titration study starting at 8 cm water pressure. Her DME is [facility]. Assessment & Plan (12/24/2020 9:04 AM CDT): Continue CPAP. Would like to see Pulm/sleep at [facility] as difficulty getting in consistently at [facility] and most of her care is now [facility] Assessment & Plan (02/18/2020 9:44 PM CDT): Continue CPAP Assessment & Plan (08/13/2019 8:46 AM VOLUNTEER MANAGER): Using the CPAP. Has equipment as [...] noted. Assessment & Plan (08/23/2024 10:16 AM VOLUNTEER MANAGER): 02/2021 XR L knee with mild to moderate OA, now s/p B TKA. Following with ortho as planned. Assessment & Plan (07/30/2024 11:23 AM VOLUNTEER MANAGER): 02/2021 XR L knee with mild [...] March. Assessment & Plan (09/01/2023 3:42 PM VOLUNTEER MANAGER): 02/2021 XR L knee with mild to moderate OA, R knee negative. Had injections with ortho without benefit, now s/p L TKA. Assessment & Plan (06/30/2023 12:46 PM VOLUNTEER MANAGER): 02/2021 XR L knee with mild [...] g/d. Assessment & Plan (07/15/2022 1:41 PM VOLUNTEER MANAGER): 02/2021 XR L knee with mild to moderate OA, R knee negative. Had injections with ortho with benefit. Unable to afford PT. Can continue Tylenol Arthritis, not to exceed 4 g/d. Assessment & Plan (06/03/2022 9:58 AM VOLUNTEER MANAGER): 02/2021 XR L knee with mild [...] evaluation. Assessment & Plan (09/03/2021 11:27 AM VOLUNTEER MANAGER): XR L knee with mild to [...] able. Assessment & Plan (06/04/2021 10:27 AM VOLUNTEER MANAGER): XR L knee with mild to [...] above. Assessment & Plan (09/03/2020 12:23 PM VOLUNTEER MANAGER): 10/27/2017 XR L knee: mild tricompartmental OA. Will continue meloxicam as above. Assessment & Plan (07/09/2020 12:24 PM VOLUNTEER MANAGER): 10/27/2017 XR L knee: mild tricompartmental [...] examination. Assessment & Plan (08/23/2024 12:54 PM VOLUNTEER MANAGER): Moderate cdai with report of increasing [...] needed. Assessment & Plan (07/30/2024 11:22 AM VOLUNTEER MANAGER): Moderate cdai with report of increased [...] with labs near her home ([facility] in [place]), but the following month will need to plan for an in person visit. She expressed understanding and agreement with this plan. Continue methotrexate 20 mg weekly, folic acid 2 mg daily, and hydroxychloroquine 200 mg BID. Labs today as below. Assessment & Plan (05/07/2024 8:55 PM VOLUNTEER MANAGER): Managed by [facility]. Currently on Plaquenil and methotrexate and Orencia folic acid Mobic and gabapentin. Stressed she needs to be in contact with her plugger worker on when and which medicines to stop for the surgery. Assessment & Plan (04/21/2024 8:49 PM CDT): Continue per [facility]. They currently manage [...] Plan (01/22/2024 8:17 PM CDT): Continue per [facility] as they manage her condition. Assessment & Plan (11/24/2023 9:58 AM CDT): Low cdai without inflammatory sounding pain. Will continue methotrexate 20 mg weekly, folic acid 2 mg daily, hydroxychloroquine 200 mg BID, and Orencia and monitor. Labs today as below. Follow up in 3 months or sooner as needed. Assessment & Plan (09/06/2023 9:42 AM VOLUNTEER MANAGER): Rheumatoid arthritis is managed by [facility]. Currently on Plaquenil methotrexate Orencia and folic acid Assessment & Plan (09/01/2023 3:39 PM VOLUNTEER MANAGER): Overall stable without notable synovitis and no inflammatory sounding pain. Will continue methotrexate 20 mg weekly, folic acid 2 mg daily, hydroxychloroquine 200 mg BID, and Orencia and monitor. Labs today as below. Follow up in 3 months or sooner as needed. Assessment & Plan (08/03/2023 8:28 AM VOLUNTEER MANAGER): Continue with rheumatology. Assessment & Plan (06/30/2023 12:43 PM VOLUNTEER MANAGER): Overall stable without notable synovitis and no inflammatory sounding pain. Will continue methotrexate 20 mg weekly, folic acid 2 mg daily, hydroxychloroquine 200 mg BID, and Orencia and monitor. Labs today as below. Assessment & Plan (06/02/2023 4:49 PM VOLUNTEER MANAGER): Continue per Rheumatology Assessment & Plan (04/06/2023 7:35 PM CDT): Continue per Rheumatology. She has been in discussion with them on what medications to stop prior to her knee surgery. She states she was told to take all of her medicines accept the Orencia. Assessment & Plan (01/20/2023 8:12 PM CDT): Continue per Rheumatology [facility] Assessment & Plan (01/13/2023 3:42 [...] Plan (09/12/2022 6:06 PM CDT): Continue with [facility] Assessment & Plan (07/15/2022 1:41 PM VOLUNTEER MANAGER): Low cdai. Significantly improved after IM [...] needed. Assessment & Plan (06/03/2022 3:37 PM VOLUNTEER MANAGER): High cdai. Previously felt well controlled [...] (01/23/2022 4:57 PM CDT): Continue management per [facility] Assessment & Plan (12/07/2021 9:02 AM CDT): Low cdai. Denies inflammatory sounding joint pain. Continue methotrexate 25 mg weekly, folic acid to 2 mg daily, Rinvoq 15 mg daily, hydroxychloroquine 200 mg BID, and cyclobenzaprine 5 mg qhs and monitor. Labs today as below. Plan for follow up in 3 months or sooner as needed. Assessment & Plan (09/11/2021 11:14 PM VOLUNTEER MANAGER): Continue per [facility] Assessment & Plan (09/03/2021 11:25 AM VOLUNTEER MANAGER): cdai = 12. Pt suspects increased [...] needed. Assessment & Plan (06/04/2021 10:25 AM VOLUNTEER MANAGER): Low cdai. Denies inflammatory sounding pain at present. Will plan to continue methotrexate 25 mg weekly, folic acid to 2 mg daily, Rinvoq 15 mg daily, hydroxychloroquine 200 mg BID, and cyclobenzaprine 5 mg qhs and monitor. Labs today as below. Plan for follow up in 3 months or sooner as needed. Assessment & Plan (05/31/2021 9:15 PM VOLUNTEER MANAGER): Continue per Rheumatology Assessment & Plan (05/29/2021 8:13 PM VOLUNTEER MANAGER): Continue per Rheumatology. Currently on Plaquenil methotrexate and folic acid. Assessment & Plan (05/24/2021 10:38 AM VOLUNTEER MANAGER): Continue per Rheumatology Assessment & Plan [...] needed. Assessment & Plan (09/03/2020 12:22 PM VOLUNTEER MANAGER): Low cdai. Continues to feel improved [...] needed. Assessment & Plan (08/31/2020 9:34 AM VOLUNTEER MANAGER): Continue per [facility] Assessment & Plan (07/09/2020 12:22 PM VOLUNTEER MANAGER): 64yoF with a h/o seropositive RA [...] time. Assessment & Plan (06/04/2020 11:14 AM VOLUNTEER MANAGER): 64yoF with a h/o seropositive RA [...] needed. Assessment & Plan (05/14/2020 9:33 PM VOLUNTEER MANAGER): Refer to new Personal Banking Advisor as Dr. Soto has . Assessment & Plan (02/18/2020 9:46 PM CDT): Continue per Rheum Assessment & Plan (08/13/2019 8:59 AM VOLUNTEER MANAGER): Continue per Dr. Soto Assessment & [...] responding to Reclast. Forteo was tried by [facility] and she could [...] of her osteoporosis, recommended evaluation by the [facility], unfortunately their first available appt was in November 2024. Recommended today that she check with [facility] Oste[facility] (at [facility]) to see how far out they are scheduling new patients, though she does not like this option due to distance from her house. Assessment & Plan (09/06/2023 9:40 AM VOLUNTEER MANAGER): Managed by [facility]. Per patient they are making a referral to bone metabolism at [facility] she has not seen significant improvement with the Forteo or the Reclast. Assessment & Plan (09/01/2023 3:43 PM VOLUNTEER MANAGER): DEXA: Lspine BMD 0.809 Tscore -2.2, [...] of her osteoporosis, recommend evaluation by the [facility], provided contact info for Dr. Castillo. Pt in agreement with plan. Assessment & Plan (06/30/2023 12:49 PM VOLUNTEER MANAGER): DEXA: Lspine BMD 0.809 Tscore -2.2, [...] PM CDT): Continue to monitor. Managed by [facility]. Patient is on Reclast calcium vitamin-D [...] exercise Assessment & Plan (07/15/2022 1:42 PM VOLUNTEER MANAGER): 01/27/2021 DEXA: Lspine -1.8, L femoral neck -1.9, L total hip -1.2, R femoral neck -2.3, R total hip -1.0, FRAX major 32% and hip 7%. Received Reclast 07/2021. Continue yearly Reclast, scheduled for 07/22 Assessment & Plan (06/03/2022 3:38 PM VOLUNTEER MANAGER): 01/27/2021 DEXA: Lspine -1.8, L femoral [...] Plan (01/23/2022 5:02 PM CDT): Managed by [facility] currently on Reclast calcium and vitamin-D Assessment & Plan (12/07/2021 9:04 AM CDT): 01/27/2021 DEXA: Lspine -1.8, L femoral neck -1.9, L total hip -1.2, R femoral neck -2.3, R total hip -1.0, FRAX major 32% and hip 7%. Received Reclast 07/2021. Continue yearly Reclast. Assessment & Plan (09/03/2021 11:26 AM VOLUNTEER MANAGER): 01/27/2021 DEXA: Lspine -1.8, L femoral neck -1.9, L total hip -1.2, R femoral neck -2.3, R total hip -1.0, FRAX major 32% and hip 7%. Received Reclast 07/2021. Continue yearly reclast and daily vitamin D-calcium supplement. Assessment & Plan (06/04/2021 10:27 AM VOLUNTEER MANAGER): 01/27/2021 DEXA: Lspine -1.8, L femoral [...] order provided today, she will schedule at [facility] Assessment & Plan (12/24/2020 9:06 AM CDT): Continue Reclast thru Rheum Continue calcium, vitD and exercise Assessment & Plan (12/03/2020 10:45 AM CDT): Vitamin D level was 68. Received Reclast 07/09/2020. Last DEXA per available records was 01/31/2019, due this summer - order provided today, she will schedule at [facility] Assessment & Plan (09/03/2020 12:23 PM VOLUNTEER MANAGER): Vitamin D level was 68. Received Reclast 07/09/2020. Last DEXA per available records was 01/31/2019, due this summer. Assessment & Plan (07/09/2020 12:23 PM VOLUNTEER MANAGER): Overdue for Reclast, last infusion was 03/28/2019, will receive infusion today. Vitamin D level was 68 Last DEXA per available records was 01/31/2019 Assessment & Plan (06/04/2020 11:15 AM VOLUNTEER MANAGER): Overdue for Reclast, last infusion was 03/28/2019, will check benefits. Recheck vitamin D level now. Last DEXA per available records was 01/31/2019 Assessment & Plan (02/18/2020 9:46 PM CDT): Calcium, vit D and exercise. Continue to monitor DXA Assessment & Plan (08/13/2019 8:58 AM VOLUNTEER MANAGER): Continue with Calcium, Vit D and [...] Krishnamurthy. Assessment & Plan (09/06/2023 9:41 AM VOLUNTEER MANAGER): New diagnosis Dupree's esophagus made on 08/2023 EGD at [facility] with Dr. Daniels Stressed importance of very close follow-up BMI 37.0-37.9, adult 09/06/2023 024 Assessment & Plan (10/13/2023 7:38 AM CDT): Discussed the patient's BMI. The BMI is above average. BMI management plan is completed. BMI Follow-up includes: nutrition counseling, exercise counseling and education provided. Assessment & Plan (09/06/2023 9:42 AM VOLUNTEER MANAGER): Discussed the patient's BMI. The BMI is above average. BMI management plan is completed. BMI Follow-up includes: nutrition counseling, exercise counseling and education provided. Hyperglycemia 09/06/2023 09/06/2023 Positive depression screening 09/06/2023 09/06/2023 Annual physical exam 09/06/2023 024 Assessment & Plan (09/06/2023 9:43 AM VOLUNTEER MANAGER): Encouraged healthy lifestyle, good nutrition and exercise. Encouraged Calcium and Vitamin D and weight bearing exercise for bone health. Reviewed immunizations Reviewed age appropirate screenings. Right knee pain 08/09/2023 09/06/2023 Sinus congestion 08/07/2023 09/06/2023 Assessment & Plan (08/07/2023 7:54 PM VOLUNTEER MANAGER): Persistent sinusitis symptoms along with cough. Will start doxy b.i.d.. Start antihistamine (Claritin OR Zyrtec), Mucinex 12hour and Steroid nasal spray (Flonase). Push fluids. Rest. Supportive care. If sxs worsen or don\'t improve, pt is to followup in the office. Acute cough 08/07/2023 01/22/2024 Assessment & Plan (08/07/2023 7:55 PM VOLUNTEER MANAGER): Persistent sinusitis symptoms along with cough. Will start doxy b.i.d.. Start antihistamine (Claritin OR Zyrtec), Mucinex 12hour and Steroid nasal spray (Flonase). Push fluids. Rest. Supportive care. If sxs worsen or don\'t improve, pt is to followup in the office. BMI 35.0-35.9,adult 08/03/2023 09/06/19 24 Assessment & Plan (08/07/2023 7:51 PM VOLUNTEER MANAGER): Discussed the patient's BMI. The BMI is above average. BMI management plan is completed. BMI Follow-up includes: nutrition counseling, exercise counseling and education provided. Assessment & Plan (08/03/2023 8:29 AM VOLUNTEER MANAGER): Discussed the patient's BMI. The BMI [...] 01/22/2024 Assessment & Plan (06/02/2023 4:57 PM VOLUNTEER MANAGER): Later in the day received critical lab call for a CO2 value at 42. My staff contacted the patient and she was instructed to go to the ER for further evaluation to determine underlying cause. She states throughout the day she has noticed a little bit more shortness of breath. She plans to have her brother drive her to [facility]. Charge nurse was notified of the arrival [...] surgery. Will defer cardiac clearance to her cap cutter. Her chronic medical conditions are stable. [facility] as instructed her to hold the [...] Ge Sexton on May 04 at [facility]. Need for vaccination for Strep pneumoniae 01/20/2023 [...] symptoms worsen or do not respond to spva-jym-[id number] allergy medicines within the next week she may call and will consider antibiotic. Left knee pain 09/13/2022 09/06/2023 BMI 39.0-39.9,adult 08/23/2022 11/09/19 Assessment & Plan (10/25/2022 3:32 PM CDT): Discussed the patient's BMI. The BMI is above average. BMI management plan is completed. BMI Follow-up includes: nutrition counseling, exercise counseling and education provided. Assessment & Plan (08/23/2022 2:19 PM VOLUNTEER MANAGER): Discussed the patient's BMI. The BMI [...] plans Assessment & Plan (07/18/2022 10:20 AM VOLUNTEER MANAGER): CT revealed pelvic lipomatosis that is [...] 12/20/2022 Assessment & Plan (07/18/2022 10:21 AM VOLUNTEER MANAGER): CT revealed pelvic lipomatosis that is [...] plan, Assessment & Plan (07/08/2022 12:33 PM VOLUNTEER MANAGER): Patient has had dysuria. She was [...] STAT abd/pelvis with and without contrast at [facility]. Check labs STAT. Acute right flank pain 07/08/202204/06 Assessment & Plan (07/18/2022 10:21 AM VOLUNTEER MANAGER): CT revealed pelvic lipomatosis that is [...] plan, Assessment & Plan (07/08/2022 5:58 PM VOLUNTEER MANAGER): Images from the original note were [...] STAT abd/pelvis with and without contrast at [facility]. Check labs STAT. STAT CT Abd/pelvis without [...] 09/06/2023 Assessment & Plan (07/08/2022 12:33 PM VOLUNTEER MANAGER): Patient has had dysuria. She was [...] STAT. Assessment & Plan (07/06/2022 8:50 AM VOLUNTEER MANAGER): Pt presents with dysuria. Urine dip [...] 35.00-39.99. Assessment & Plan (07/18/2022 10:23 AM VOLUNTEER MANAGER): Discussed the patient's BMI. The BMI is above average. BMI management plan is completed. BMI Follow-up includes: nutrition counseling, exercise counseling and education provided. Assessment & Plan (07/08/2022 12:30 PM VOLUNTEER MANAGER): Discussed the patient's BMI. The BMI [...] She has received multiple injections from her plugger worker regarding her knee but yesterday when she [...] 01/23/2022 Assessment & Plan (09/11/2021 11:28 PM VOLUNTEER MANAGER): Patient has never had a full skin exam. She has quite a few lesions scattered and would benefit from a full exam. Will make referral Annual physical exam 09/11/2021 022 Assessment & Plan (09/11/2021 11:28 PM VOLUNTEER MANAGER): Encouraged healthy lifestyle, good nutrition and exercise. Encouraged Calcium and Vitamin D and weight bearing exercise for bone health. Reviewed immunizations Reviewed age appropirate screenings. Cough 08/13/2021 01/23/2022 Assessment & Plan (08/13/2021 3:43 PM VOLUNTEER MANAGER): Patient to presume positive COVID/FLU until results are available and plan to self isolate for up to 10 days from the onset of sxs. Check COVID/FLU test thru [facility] collection site in [place]. Let pt know the newest CDC recommendations [...] future. Assessment & Plan (07/13/2021 11:28 AM VOLUNTEER MANAGER): I have ordered the patient Claritin [...] provided. Assessment & Plan (09/11/2021 11:27 PM VOLUNTEER MANAGER): Obesity is unchanged. Discussed the patient's BMI. The BMI is above average. BMI management plan is completed. BMI Follow-up includes: nutrition counseling, exercise counseling and education provided. Assessment & Plan (05/29/2021 8:24 PM VOLUNTEER MANAGER): Obesity is unchanged. Discussed the patient's BMI. The BMI is above average. BMI management plan is completed. BMI Follow-up includes: nutrition counseling, exercise counseling and education provided. Assessment & Plan (05/12/2021 1:26 PM VOLUNTEER MANAGER): Obesity is unchanged. Discussed the patient's BMI. The BMI is above average. BMI management plan is completed. BMI Follow-up includes: nutrition counseling, exercise counseling and education provided. BMI 37.0-37.9, adult 05/12/2021 022 Assessment & Plan (09/11/2021 11:27 PM VOLUNTEER MANAGER): Obesity is unchanged. Discussed the patient's BMI. The BMI is above average. BMI management plan is completed. BMI Follow-up includes: nutrition counseling, exercise counseling and education provided. Assessment & Plan (05/29/2021 8:24 PM VOLUNTEER MANAGER): Obesity is unchanged. Discussed the patient's BMI. The BMI is above average. BMI management plan is completed. BMI Follow-up includes: nutrition counseling, exercise counseling and education provided. Assessment & Plan (05/12/2021 1:26 PM VOLUNTEER MANAGER): Obesity is unchanged. Discussed the patient's BMI. The BMI is above average. BMI management plan is completed. BMI Follow-up includes: nutrition counseling, exercise counseling and education provided. Tinea corporis 04/14/2021 01/23/2022 Assessment & Plan (05/31/2021 9:15 PM VOLUNTEER MANAGER): Improving with Lotrisone. Keep the area clean and dry Assessment & Plan (05/29/2021 8:24 PM VOLUNTEER MANAGER): Lotrisone to pharmacy. Encouraged her to keep the area clean and dry use her dryer to dry the skin before applying the cream. She is to call if symptoms worsen or do not resolve. Need for immunization against influenza 04/14/2021 05/31/2021 Assessment & Plan (05/29/2021 8:24 PM VOLUNTEER MANAGER): Fluid updated in the office Medicare annual wellness visit, subsequent 04/13/2021 05/31/2021 Assessment & Plan (05/29/2021 8:23 PM VOLUNTEER MANAGER): Encouraged healthy lifestyle, good nutrition and [...] 12/30/2020 Assessment & Plan (08/31/2020 9:31 AM VOLUNTEER MANAGER): Error. This should be right calf but PT order sent and corrected so unable to remove. Fatigue 08/31/2020 09/06/2023 Assessment & Plan (04/06/2023 7:43 PM CDT): Probably multifactorial. Check labs and followup to re-evaluate Assessment & Plan (05/02/2022 9:16 PM CDT): Probably multifactorial. Check labs and followup to re-evaluate Assessment & Plan (08/31/2020 9:34 AM VOLUNTEER MANAGER): Probably multifactorial. Check labs and followup to re-evaluate Pain in both lower extremities 08/31/2020 09/06/2023 Assessment & Plan (09/01/2023 3:41 PM VOLUNTEER MANAGER): Cramping lower leg pain has resolved [...] 021 Assessment & Plan (08/31/2020 9:33 AM VOLUNTEER MANAGER): Obesity is unchanged. Discussed the patient's BMI. The BMI is above average. BMI management plan is completed. BMI Follow-up includes: nutrition counseling, exercise counseling and education provided. Pain of right calf 08/26/2020 Assessment & Plan (08/31/2020 9:31 AM VOLUNTEER MANAGER): This is a significant, separately identifiable problem that was evaluated and managed on the same day as the wellness exam Unable to rule out DVT with her calf pain/sxs. Check STAT Venous doppler. Recvd Results and discussed with patient via phone. Negative for DVT. Recommend PT. Prefers Zanoni Annual physical exam 08/24/2020 021 Assessment & Plan (08/31/2020 9:34 AM VOLUNTEER MANAGER): Encouraged healthy lifestyle, good nutrition and exercise. Encouraged Calcium and Vitamin D and weight bearing exercise for bone health. Reviewed immunizations Reviewed age appropirate screenings. Dizziness 05/07/2020 09/06/2023 Assessment & Plan (05/14/2020 9:35 PM VOLUNTEER MANAGER): Suspect the dizziness is inner ear [...] imaging. Assessment & Plan (05/07/2020 1:49 PM VOLUNTEER MANAGER): Declines to report to er now [...] 05/14/2020 Assessment & Plan (05/07/2020 1:49 PM VOLUNTEER MANAGER): Declines to report to er now [...] 12/30/2020 Assessment & Plan (05/07/2020 1:49 PM VOLUNTEER MANAGER): Declines to report to er now [...] provided Assessment & Plan (05/31/2021 9:15 PM VOLUNTEER MANAGER): Mammogram order provided Assessment & Plan (02/18/2020 9:47 PM CDT): Mammogram order provided today Medicare annual wellness visit, subsequent 02/15/2020 02/15/2020 Precordial pain 09/04/2019 09/06/2023 Assessment & Plan (08/07/2023 7:50 PM VOLUNTEER MANAGER): Workup in the hospital. Cardiology states [...] inhaler. Assessment & Plan (07/13/2021 11:26 AM VOLUNTEER MANAGER): The patient will continue with Dulera [...] 020 Assessment & Plan (08/13/2019 8:59 AM VOLUNTEER MANAGER): Encouraged healthy lifestyle, good nutrition and exercise. Encouraged Calcium and Vitamin D and weight bearing exercise for bone health. Reviewed immunizations Reviewed age appropirate screenings. Obesity, morbid, BMI 40.0-49.9 08/13/2019 09/23/2020 Assessment & Plan (08/26/2020 7:10 AM VOLUNTEER MANAGER): Obesity is unchanged. Discussed the patient's BMI. The BMI is above average. BMI management plan is completed. BMI Follow-up includes: nutrition counseling, exercise counseling and education provided. Assessment & Plan (05/14/2020 9:33 PM VOLUNTEER MANAGER): Obesity is unchanged. Discussed the patient's [...] provided. Assessment & Plan (08/13/2019 8:58 AM VOLUNTEER MANAGER): Obesity is unchanged. Discussed the patient's [...] change Assessment & Plan (08/13/2019 9:01 AM VOLUNTEER MANAGER): This is a significant, separately identifiable [...] 01/22/2024 Assessment & Plan (09/06/2023 9:42 AM VOLUNTEER MANAGER): Probably multifactorial. Check labs and followup to re-evaluate Assessment & Plan (09/03/2021 11:28 AM VOLUNTEER MANAGER): She notes increased fatigue and lack [...] re-evaluate Assessment & Plan (08/13/2019 9:08 AM VOLUNTEER MANAGER): Probably multifactorial. Check labs and followup to re-evaluate Check labs prior to next visit BMI 40.0-44.9, adult 08/02/2019 020 Assessment & Plan (08/13/2019 8:57 AM VOLUNTEER MANAGER): Obesity is unchanged. Discussed the patient's BMI. The BMI is above average. BMI management plan is completed. BMI Follow-up includes: nutrition counseling, exercise counseling and education provided. Assessment & Plan (08/02/2019 7:21 AM VOLUNTEER MANAGER): Obesity is unchanged. Discussed the patient's BMI. The BMI is above average. BMI management plan is completed. BMI Follow-up includes: nutrition counseling, exercise counseling and education provided. Morbid obesity 08/02/2019 08/13/2019 Assessment & Plan (08/02/2019 7:20 AM VOLUNTEER MANAGER): Obesity is unchanged. Discussed the patient's BMI. The BMI is above average. BMI management plan is completed. BMI Follow-up includes: nutrition counseling, exercise counseling and education provided. Acute non-recurrent maxillary sinusitis 08/02/2019 08/13/2019 Assessment & Plan (08/02/2019 7:47 AM VOLUNTEER MANAGER): Start antibiotic, antihistamine, Mucinex and Steroid [...] She is being sent directly to [facility] and they were working her in today. [...] 21 Assessment & Plan (05/14/2020 9:33 PM VOLUNTEER MANAGER): Completed Doxy and steroid. No s/s [...] p.r.n. Assessment & Plan (08/13/2019 8:59 AM VOLUNTEER MANAGER): Continue with NSAIDs prn Atheroscler of [place] artery of both legs with intermit claudication 10/31/2018 12/20/2022 Assessment & Plan (09/11/2021 11:23 PM VOLUNTEER MANAGER): Continue per vascular. She is on aspirin and statin Assessment & Plan (12/24/2020 9:03 AM CDT): Sxs stable. On ASA, statin and encouraged daily exercise. Assessment & Plan (02/18/2020 9:43 PM CDT): Continue per cardio. On ASA and statin Assessment & Plan (08/13/2019 8:45 AM VOLUNTEER MANAGER): Continues with Dr. Alonso salmeron Assessment & Plan (11/01/2018 11:00 PM CDT): Pt sxs well controlled. On ASA Coronary artery disease of n ative artery of [place] heart with stable angina pectoris 10/31/2018 12/30/2020 Assessment & Plan (08/13/2019 8:36 AM VOLUNTEER MANAGER): On ASA and Nitrate. Continue per [...] regimen Assessment & Plan (08/13/2019 8:46 AM VOLUNTEER MANAGER): Continue current regimen Assessment & Plan [...] potassium Assessment & Plan (09/11/2021 11:26 PM VOLUNTEER MANAGER): Bp is stable/in acceptable range for any co-morbidities. Encouraged to limit sodium intake and exercise for weight control. Currently stable without medication Assessment & Plan (05/29/2021 8:19 PM VOLUNTEER MANAGER): Bp is stable/in acceptable range for any co-morbidities. Encouraged to limit sodium intake and exercise for weight control. Continue Lasix is helping with the swelling and addition. Blood pressure stable Assessment & Plan (05/24/2021 10:38 AM VOLUNTEER MANAGER): Continue Lasix potassium Assessment & Plan (12/24/2020 9:05 AM CDT): Bp is stable/in acceptable range for any co-morbidities. Encouraged to limit sodium intake and exercise for weight control. Assessment & Plan (08/31/2020 9:32 AM VOLUNTEER MANAGER): Bp is stable/in acceptable range for any co-morbidities. Encouraged to limit sodium intake and exercise for weight control. Stable with laxis currently Assessment & Plan (02/18/2020 9:44 PM CDT): Bp is stable/in acceptable range for any co-morbidities. Encouraged to limit sodium intake and exercise for weight control. Assessment & Plan (08/13/2019 8:57 AM VOLUNTEER MANAGER): Bp is stable/in acceptable range for [...] difficulty pulling them. Recommend finding some on Coupsta that fit her calf that she can zip on and off. Showed them to her on Coupsta and where to order them. She states she will try to get them. Assessment & Plan (05/31/2021 9:16 PM VOLUNTEER MANAGER): Improving slowly. May have been due to the Relafen. She is on 60 of Lasix with potassium 10 mEq daily. Continue with current plan. Keep legs elevated. Utilize compressi to improve cleared. on hose. Call if symptoms worsen or do not continue to improve. Assessment & Plan (05/29/2021 8:23 PM VOLUNTEER MANAGER): Persistent lower extremity edema that has [...] CMP. Assessment & Plan (05/24/2021 10:39 AM VOLUNTEER MANAGER): Patient that her swelling was improving since discharge for over the last day or so it seems to be increasing. Will increase the Lasix to 40mg Start K 10meq daily Recheck labs in 5 days Assessment & Plan (08/31/2020 9:33 AM VOLUNTEER MANAGER): Continue lasix Palpitations 12/08/2015 12/30/2020 Overview (10/09/2016): Palpitations Other abnormal glucose 11/11/201508/31 Asthma 10/14/2015 12/24/2020 Assessment & Plan (08/13/2019 8:49 AM VOLUNTEER MANAGER): Continue with current regimen and with Pulmonary Assessment & Plan (11/01/2018 10:53 PM CDT): Currently Stable with regimen. Monitor closely with current allergy season. Followup Dr. Gomez as directed. Menopause 10/14/2015 12/30/2020 Cervical pain (neck) 10/14/2015 023 Immunizations Immunization Administration Dates Next Due COVID-19 mRNA (Backtrace I/O) 0.3 m L (30 mcg) vaccine (12 [...] drink = 0.6 oz pur e alcohol) [facility] Utilities Answer Date Recorded In the past 12 months has [employer], gas, oil, or water company threatened to [...] you attend chur ch or adventism services? 1 to 4 times per year [...] time in the past 12 m [facility], were you homeless or living in a [...] on file Legal Sex Female 8:04 PM VOLUNTEER MANAGER Gender Identity Female 02/15/2020 6:08 PM [...] on file Medical Devices Implanted Type Area Overseer Kosher Kitchen Device Identifier Shelf Expiration Date Model / Serial / Lot [employer] Simplex P Radiopaque Full Dose Cement Bone Sterile 6191-1-010 - [id number] Implanted:Qty: 2 on 05/04/2023 by Michael Motta MD at [facility] Bone Cement Left: Knee [employer] 05/03/2025 6191-1-010 / 6191-1-001 / [id number] [employer] Simplex P Radiopaque Full Dose Cement Bone Sterile 6191-1-010 - [id number] Implanted:Qty: 2 on 05/30/2024 by Michael Motta MD at [facility] Bone Cement Right: Patella [employer] [id number] 05/03/2026 6191-1-010 / / [id number] [employer] Persona 14mm 30+ Mm Knee Tibia Taper Extension Stem [id number] - [id number] - [id number] Implanted:Qty: 1 on 05/04/2023 by Michael Motta MD at [facility] Left: Knee [employer] [id number] 02/15/2033 [id number] / [id number] / [id number] [employer] Persona Cemented Cruciate Retaining Knee Left 7 Narrow Component [id number] - [id number] 1 - [id number] Implanted:Qty: 1 on 05/04/2023 by Michael Motta MD at [facility] Left: Knee [employer] [id number] 10/25/2032 [id number] / [id number] 01 / [id number] [employer] Baseplate Tibial Knee Cemented Left Fixed Stemmed Persona Size D Tivanium [id number] - [id number] 1 - [id number] Implanted:Qty: 1 on 05/04/2023 by Michael Motta MD at [facility] Left: Knee [employer] [id number] 09/11/2032 [id number] / [id number] 01 / [id number] [employer] Persona 11mm Knee Left 6-7 C-D Insert Articular Vivacit-E Sterile [id number] - [id number] 1 - [id number] Implanted:Qty: 1 on 05/04/2023 by Michael Motta MD at [facility] Left: Knee [employer] [id number] 12/28/2025 [id number] / [id number] / [id number] [employer] Persona 32mm Knee Component Patellar All Poly Latex Free [id number] - [id number] Implanted:Qty: 1 on 05/04/2023 by Michael Motta MD at [facility] [employer] 12/19/2027 [id number] / / [id number] [employer] Baseplate Tibial Knee Cemented Right Fixed Stemmed Persona Size C Tivanium [id number] - [id number] Implanted:Qty: 1 on 05/30/2024 by Michael Motta MD at [facility] Right: Knee [employer] [id number] 03/22/2033 [id number] / / [id number] [employer] Persona 29mm Knee Component Patellar All Poly Latex Free [id number] - [id number] Implanted:Qty: 1 on 05/30/2024 by Michael Motta MD at [facility] Right: Knee [employer] [id number] 12/18/2028 [id number] / / [id number] [employer] Persona 13mm Cruciate Retain Knee Right 6-7 Cd Insert Articular Latex Free [id number] - [id number] Implanted:Qty: 1 on 05/30/2024 by Michael Motta MD at [facility] Right: Patella [employer] [id number] 05/04/2025 [id number] / / [id number] [employer] Persona Cruciate Retaining Cemented Knee Right 7 Narrow Component [id number] - [id number] Implanted:Qty: 1 on 05/30/2024 by Michael Motta MD at [facility] Right: Knee [employer] [id number] 12/27/2033 [id number] / / [id number] [employer] Persona 14mm 30+ Mm Knee Tibia Taper Extension Stem [id number] - [id number] Implanted:Qty: 1 on 05/30/2024 by Michael Motta MD at [facility] Right: Knee [employer] [id number] 04/11/2034 [id number] / / [id number] Procedures Procedure Name Priority Date/Time Associated Diagnosis [...] Read Routine (OP Routine) 08/29/2024 12:23 PM VOLUNTEER MANAGER COMPREHENSIVE METABOLIC PANEL Routine 08/23/2024 2:11 PM VOLUNTEER MANAGER Encounter for medication monitoring CBC WITH AUTO DIFFERENTIAL Routine 08/23/2024 2:11 PM VOLUNTEER MANAGER Encounter for medication monitoring SCAN - LABS 08/23/2024 VITAMIN B12 Routine 08/02/2024 7:41 AM VOLUNTEER MANAGER Fatigue, unspecified type LIPID PANEL Routine 08/02/2024 7:41 AM VOLUNTEER MANAGER Mixed hyperlipidemia HEMOGLOBIN A1C Routine 08/02/2024 7:41 AM VOLUNTEER MANAGER Pre-diabetes COMPREHENSIVE METABOLIC PANEL Routine 08/02/2024 7:41 AM VOLUNTEER MANAGER Mixed hyperlipidemia CBC WITH AUTO DIFFERENTIAL Routine 08/02/2024 7:41 AM VOLUNTEER MANAGER Fatigue, unspecified type TSH Routine 08/02/2024 7:41 AM VOLUNTEER MANAGER Fatigue, unspecified type ERYTHROCYTE SEDIMENTATION RATE Routine 07/30/2024 2:36 PM VOLUNTEER MANAGER 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) CRP (ACUTE PHASE) Routine 07/30/2024 2:3 6 PM VOLUNTEER MANAGER 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) COMPREHENSIVE METABOLIC PANEL Routine 07/30/2024 2:36 PM VOLUNTEER MANAGER Encounter for medication monitoring CBC WITH AUTO DIFFERENTIAL Routine 07/30/2024 2:36 PM VOLUNTEER MANAGER Encounter for medication monitoring XR KNEE RIGHT 3 VIEWS Schedule Routine, Read Routine (OP Routine) 07/24/2024 1:35 PM VOLUNTEER MANAGER Status post total knee replacement using cement, right DEXA AXIAL SKELETON BONE DENSITY 1 OR MORE SITES Schedule Routine, Read Routine (OP Routine) 04/12/2023 8:14 AM CDT COLONOSCOPY Routine 07/27/2021 HEPATITIS C ANTIBODY Routine 06/04/2020 10:29 AM VOLUNTEER MANAGER Encounter for screening for other viral [...] CDT) Influenza A Ag, POC Positive(A) Negative [facility] Influenza B Ag, POC Negative Negative [facility] COVID-19 Ag POC Presumptive Negative Presumptive Negative, Invalid [facility] Nasal 09/25/2024 11:0 2 AM CDT Jessica Collins NP POINT OF CARE TEST ORDERABLES Final Result [facility] [address] [id number] * XR Knee Right 3 Views (09/13/2024 [...] John Sparrow M.D. RB T: Report ID: [id number] Reading Location: [id number] Procedure Note John Sparrow MD - 09/18/2024 [...] John Sparrow M.D. RB T: Report ID: [id number] Reading Location: [id number] Michael Motta MD IMG XR PROCEDURES Final Re sult * (ABNORMAL) CT Abdomen Pelvis W Contrast (08/29/2024 12:23 PM VOLUNTEER MANAGER) Anatomical Region Laterality Modality Body N/A Computed Tomogra phy Historical Provider IMIke CT PROCEDURES Edited Result - Final * CBC with auto differential (08/23/2024 2:11 PM VOLUNTEER MANAGER) WBC 4.8 3.8 - 10.8 Thousand/u [...] [facility] Blood 08/23/2024 2:11 PM VOLUNTEER MANAGER 08/23/2024 2:11 PM VOLUNTEER MANAGER Sangita OSMAN LAB BLOOD ORDERABLES Vy suazo Result [facility] [address] [address] * (ABNORMAL) Comprehensive metabolic panel (08/23/2024 2:11 PM VOLUNTEER MANAGER) Glucose 188(H) 65 - 99 mg/dL [...] [facility] Blood 08/23/2024 2:11 PM VOLUNTEER MANAGER 08/23/2024 2:11 PM VOLUNTEER MANAGER Sangita OSMAN LAB BLOOD ORDERABLES Vy l Result [facility] [address] [address] * SCAN - LABS (08/23/2024) Alee OSMAN Final Resu lt * (ABNORMAL) CBC with auto differential (08/02/2024 7:41 AM VOLUNTEER MANAGER) WBC 4.0 3.8 - 10.8 Thousand/u [...] [facility] Blood 08/02/2024 7:41 AM VOLUNTEER MANAGER 08/02/2024 7:42 AM VOLUNTEER MANAGER Alee OSMAN LAB BLOOD ORDERABLES Final Result Performing Organization Address [facility] Co de Phone Number [facility] [address] [place] [address] * TSH (08/02/2024 7:41 AM VOLUNTEER MANAGER) [facility] TSH 1.57 0.40 - 4.50 mIU/L [facility] Blood 08/02/2024 7:41 AM VOLUNTEER MANAGER 08/02/2024 7:42 AM VOLUNTEER MANAGER Alee OSMAN LAB BLOOD ORDERABLES Final Result Performing Organization Address [facility] de Phone Number [facility] [employer] [facility] [address] [place] [address] * Hemoglobin A1c (08/02/2024 7:41 AM VOLUNTEER MANAGER) Pathologist [facility] Hgb A1C 5.4 <5.7 % of total Hgb [facility] Comment: For the purpose of screening for the presence of diabetes: <5.7% Consistent with the absence of diabetes 5.7-6.4% Consistent with increased risk for diabetes (prediabetes) > or =6.5% Consistent with diabetes This assay result is consistent with a decreased risk of diabetes. Currently, no consensus exists regarding use of hemoglobin A1c for diagnosis of diabetes in children. According to [place] Diabetes Association (ADA) guidelines, hemoglobin A1c <7.0% represents optimal control in non- diabetic patients. Different metrics may apply to specific patient populations. Standards of Medical Care in Diabetes(ADA). Blood 08/02/2024 7:41 AM VOLUNTEER MANAGER 08/02/2024 7:42 AM VOLUNTEER MANAGER Alee OSMAN LAB BLOOD ORDERABLES Final Result [facility] [address] [place] [address] * Vitamin B12 (08/02/2024 7:41 AM VOLUNTEER MANAGER) Vitamin B12 349 200 - 1,100 [...] will have symptoms. Blood 08/02/2024 7:41 AM VOLUNTEER MANAGER 08/02/2024 7:42 AM VOLUNTEER MANAGER Alee OSMAN LAB BLOOD ORDERABLES Final Result [facility] [address] [facility] [place] [address] * Lipid panel (08/02/2024 7:41 AM VOLUNTEER MANAGER) Cholesterol 127 <200 mg/dL [facility] [...] LDL-C. Barry FREITAS et al. ELAINE. 2013;310(19): 8105-7790 (http://education.[employer]/faq/TZH794) Chol/HDL ratio 1.7 <5.0 (calc) [facility] Non-HDL, (LDL+VLDL) 52 <130 mg/dL (calc) [facility] Comment: For patients with diabetes plus 1 major ASCVD risk factor, treating to a non-HDL-C goal of <100 mg/dL (LDL-C of <70 mg/dL) is considered a therapeutic option. Blood 08/02/2024 7:41 AM VOLUNTEER MANAGER 08/02/2024 7:42 AM VOLUNTEER MANAGER Alee OSMAN LAB BLOOD ORDERABLES Final Result [facility] [address] [place] [address] * Comprehensive metabolic panel (08/02/2024 7:41 AM VOLUNTEER MANAGER) [facility] Glucose 99 65 - 99 mg/dL [...] [facility] Blood 08/02/2024 7:41 AM VOLUNTEER MANAGER 08/02/2024 7:42 AM VOLUNTEER MANAGER Alee OSMAN LAB BLOOD ORDERABLES Final Result [facility] [address] [place] [address] * CBC with auto differential (07/30/2024 2:36 PM VOLUNTEER MANAGER) WBC 6.4 3.8 - 10.8 Thousand/u L [...] [facility] Blood 07/30/2024 2:36 PM VOLUNTEER MANAGER 07/30/2024 2:36 PM VOLUNTEER MANAGER [place] [employer] OR LAB BLOOD ORDERABLES Vy l Result Performing Organization Address [facility] Co de Phone Number [facility] [address] [place] [address] * Erythrocyte sedimentation rate (07/30/2024 2:36 PM VOLUNTEER MANAGER) Pathologist [facility] Erythrocyte sedimentation rate 11 < OR = 30 mm/h [facility] Blood 07/30/2024 2:36 PM VOLUNTEER MANAGER 07/30/2024 2:36 PM VOLUNTEER MANAGER [place] [employer] OR LAB BLOOD ORDERABLES Vy l Result Performing Organization Address [facility] Co de Phone Number [facility] [address] [place] [address] * CRP (acute phase) (07/30/2024 2:36 PM VOLUNTEER MANAGER) C-RP <3.0 <8.0 mg/L [facility] Blood 07/30/2024 2:36 PM VOLUNTEER MANAGER 07/30/2024 2:36 PM VOLUNTEER MANAGER Sangita OSMAN LAB BLOOD ORDERABLES Vy suazo Result [facility] [address] [place] [address] * (ABNORMAL) Comprehensive metabolic panel (07/30/2024 2:36 PM VOLUNTEER MANAGER) Glucose 115(H) 65 - 99 mg/dL [...] [facility] Blood 07/30/2024 2:36 PM VOLUNTEER MANAGER 07/30/2024 2:36 PM VOLUNTEER MANAGER Sangita De Los Santos Charan OSMAN LAB BLOOD ORDERABLES Vy l Result [facility] [address] [address] * XR Knee Right 3 Views (07/24/2024 1:35 PM VOLUNTEER MANAGER) Anatomical Region Laterality Modality Lower Extremities, Knee Right Computed Radiography 07/25/2024 7:16 AM VOLUNTEER MANAGER Narrative 07/25/2024 7:18 AM VOLUNTEER MANAGER EXAM DESCRIPTION: XR KNEE RIGHT 3 [...] Elton Jonas M.D. KR T: Report ID: [id number] Reading Location: [id number] Procedure Note Etlon Jonas MD - 07/25/2024 EXAM DESCRIPTION: XR [...] Elton Jonas M.D. KR T: Report ID: [id number] Reading Location: [id number] Michael Motta MD IMG XR PROCEDURES Final [...] * Hepatitis C antibody (06/04/2020 10:29 AM VOLUNTEER MANAGER) Hep C Ab NON-REACTI VE NON-REACT ALEXYS [facility] SIGNAL TO CUT-OFF 0.02 <1.00 [facility] Comment: HCV antibody was non-reactive. There is no laboratory evidence of HCV infection. In most cases, no further action is required. However, if recent HCV exposure is suspected, a test for HCV RNA (test code 71646) is suggested. For additional information please refer to http://education.[employer]/faq/HEZ03s1 (This link is being provided for informational/ educational purposes only.) Blood specimen (specimen) 06/04/2020 10:29 AM VOLUNTEER MANAGER 06/04/2020 10:30 AM VOLUNTEER MANAGER Sangita OSMAN LAB MICROBIOLOGY - GENERA L ORDERABLES Final Result [facility] [employer] [facility] [address] [address] from Last 3 Months or Most Recently Relevant to Health Maintenance Insurance [facility] Member Subscriber Plan / Payer (Ef fective 2019-Present) Name:Nohemy Roy Relation to Subscriber:Self Name:Nohemy Roy Payer ID:[id number] (NAIC) Type:MEDICARE RISK OTHER Address: [address] [place] [id number] [facility] MEDICARE [facility] MEDICARE Address: [address] [address] [place] [address] Advance Directives For more information, please contact: [phone] Documents on File Type Date Recorded Patient Community Service Director Expl anation ADVANCE DIRECTIVE 05/17/2024 2:13 PM Yonis r of Chief Marketing Officer-Medical * Full Code (Latest Code Status on File) Date Activated Date Inactivated Comments 05/30/2024 12:38 PM 06/05/2024 6:31 PM * Full Code Date Activated Date Inactivated Comments 05/04/2023 2:33 PM 05/07/2023 3:07 AM * Full Code Date Activated Date Inactivated Comments 03/22/2021 4:39 PM 03/25/2021 6:17 PM Care Teams Association Executive Relationship Specialty Start Date End Date Alee Elizondo PA [address] [facility] [address] [place], [place] [id number] PCP - General Internal Medicine 07/05/23 Sharan Linton MD Referring Physician Gastroenterology 10/31/18 Martha Starks MD Consulting Physician Cardiology 12/24/20 Shama Hines MD [address] [facility] [address] [place] [address] Consulting Physician Pain Management 01/19/21 Artis Grewal MD [address] [place] [address] Consulting Physician Rheumatology 01/30/21 Amy Mayes NP [address] [facility] [address] [place] [address] Nurse Practitioner Cardiovascular Disease 04/20/24 Shailesh Dunn MD [address] [facility] [place] [address] Consulting Physician Pulmonary Disease 04/20/24 Sangita Farrar PA [address] [place] [address] Physician Control Engineer Rheumatology 05/15/24
--- OUTSIDE RECORDS SUMMARY | 2024-10-07 12:16 | XMS_ITS | Encounter Summary ---
Author Organization [facility] Facility Care Team Providers Care [employer] Crew[employer] Name Role Phone Alee Elizondo Primary Care Provider + [phone] Sharan Linton MD Unavailable [phone] Taisha Gomez MD Unavailable [phone] Parag Soto MD Unavailable [phone] RaziaMartha singh MD Unavailable [phone] Puneet Uribe MD Unavailable [phone] Shama Hines MD Unavailable Artis Grewal MD Unavailable [phone] Harrison Pena RN Unavailable [phone] Nafisa Gregg RN Unavailable [phone] Tho Kelsey MD Primary Care Provider [phone] Alee Elizondo Primary Care Provider + [phone] Amy Mayes NP Unavailable [phone] Shailesh Dunn MD Unavailable [phone] Sangita Farrar Unavailable [phone] Encounter Details Date Type Department Care Team (Latest Contact Info) Description 01/08/2017 Orders Only [facility] CLINCONV Provider, MD Tania [address] [place] [address] Social History Tobacco Use Types Packs/Day Years Used Date Smoking Tobacco: Never Alcohol Use Standard Drinks/Week Comments No 0 (1 standard drink = 0.6 oz pur e alcohol) Comments Unknown Sex and Gender Information Value Date Recorded Sex Assigned at Not on file Legal Sex Female 8:04 PM TIN POT OPERATOR Gender Identity Female 02/15/2020 6:08 PM [...] COVID: Suspected 08/13/2021 08/14/2021 08/14/2021 3:06 AM TIN POT OPERATOR COVID: Suspected 08/14/2021 08/14/2021 08/15/2021 3:05 AM TIN POT OPERATOR COVID: Suspected 08/14/2021 08/14/2021 08/15/2021 6:25 AM TIN POT OPERATOR COVID: Suspected 06/02/2023 06/02/2023 06/02/2023 7:25 PM TIN POT OPERATOR COVID: Suspected 07/26/2023 07/26/2023 07/26/2023 3:10 PM TIN POT OPERATOR COVID: Suspected 09/25/2024 09/25/2024 09/25/2024 11:03 AM CDT Influenza, adult 09/25/2024 09/25/2024 10/02/2024 3:05 AM CDT documented as of this encounter Care Teams [employer] Relationship Specialty Start Date End Date Alee Elizondo PA [address] [facility] 500 [place] [address] PCP - General Internal Medicine 02/01/17 06/29/23 Tho Kelsey MD [address] [place] [address] [facility] [address] [place] [address] PCP - General Family Medicine 06/30/23 07/04/23 Alee Elizondo PA [address] [place] [address] [place] [address] PCP - General Internal Medicine 07/05/23 Sharan Linton MD [address] [place] [address] [place] [address] Referring Physician Gastroenterology 10/31/18 Taisha Gomez MD [address] [place] [address] [place] [address] Referring Physician Pulmonary Disease 10/31/18 12/23/20 Parag Soto MD [address] [place] [address] [place] [address] Referring Physician Rheumatology 10/31/18 12/23/20 Martha Starks MD [address] [place] [address] [place] [address] Consulting Physician Cardiology 12/24/20 Puneet Uribe MD [address] [facility] [address] [place] [address] Consulting Physician Rheumatology 12/24/20 01/29/21 Shama Hines MD [address] [facility], [facility] 230 [place] [address] Consulting Physician Pain Management 01/19/21 Artis Grewal MD [address] [place] [address] Consulting Physician Rheumatology 01/30/21 Harrison Pena, JULIUS [address] [place] [address] Boarder Machine 05/30/23 09/04/23 Nafisa Gregg, JULIUS [address] [place] [address] [place] [address] [place] [address] Boarder Machine 06/06/23 06/12/23 Amy Mayes NP [address] [address] Nurse Practitioner Cardiovascular Disease 04/20/24 Shailesh Dunn MD [address] [facility] 200 [place] [address] Consulting Physician Pulmonary Disease 04/20/24 Sangita Farrar PA [address] [place] [address] Physician Export Documents Clerk Rheumatology 05/15/24 documented as of this encounter
--- OUTSIDE RECORDS SUMMARY | 2024-10-07 12:16 | XMS_ITS | Encounter Summary ---
Author Organization [facility] Facility Care Team Providers Care Child Psychologist Name Role Phone Alee Elizondo Primary Care Provider + [phone] Sharan Linton MD Unavailable Taisha Gomez MD Unavailable +[phone] Parag Soto MD Unavailable [phone] RaziaMartha singh MD Unavailable [phone] Puneet Uribe MD Unavailable [phone] Shama Hines MD Unavailable Artis Grewal MD Unavailable [phone] Harrison Pena RN Unavailable [phone] Nafisa Gregg RN Unavailable [phone] Tho Kelsey MD Primary Care Provider [phone] Alee Elizondo Primary Care Provider + [phone] Amy Mayes NP Unavailable [phone] Shailesh Dunn MD Unavailable [phone] Sangita Farrar Unavailable +[phone] Encounter Details Date Type Department Care Team (Latest Contact Info) Description 10/15/2016 Orders Only [facility] CLINCONV Provider, MD Tania [address] [place] [address] Social History Tobacco Use Types Packs/Day Years Used Date Smoking Tobacco: Never Alcohol Use Standard Drinks/Week Comments No 0 (1 standard drink = 0.6 oz pur e alcohol) Comments Unknown Sex and Gender Information Value Date Recorded Sex Assigned at Not on file Legal Sex Female 8:04 PM RADIOLOGIC TECHNOLOGIST Gender Identity Female 02/15/2020 6:08 PM CDT [...] COVID: Suspected 08/13/2021 08/14/2021 08/14/2021 3:06 AM RADIOLOGIC TECHNOLOGIST COVID: Suspected 08/14/2021 08/14/2021 08/15/2021 3:05 AM RADIOLOGIC TECHNOLOGIST COVID: Suspected 08/14/2021 08/14/2021 08/15/2021 6:25 AM RADIOLOGIC TECHNOLOGIST COVID: Suspected 06/02/2023 06/02/2023 06/02/2023 7:25 PM RADIOLOGIC TECHNOLOGIST COVID: Suspected 07/26/2023 07/26/2023 07/26/2023 3:10 PM RADIOLOGIC TECHNOLOGIST COVID: Suspected 09/25/2024 09/25/2024 09/25/2024 11:03 AM CDT Influenza, adult 09/25/2024 09/25/2024 10/02/2024 3:05 AM CDT documented as of this encounter Care Teams Child Psychologist Relationship Specialty Start Date End Date Alee Elizondo PA [address] [facility] 500 [place] [address] PCP - General Internal Medicine 02/01/17 06/29/23 Tho Kelsey MD [address] [place] [address] [address] [facility] [address] [place] [address] PCP - General Family Medicine 06/30/23 07/04/23 Alee Elizondo PA [address] [place] [address] [place] [address] PCP - General Internal Medicine 07/05/23 Sharan Linton MD [address] [place] [address] [place] [address] Referring Physician Gastroenterology 10/31/18 Taisha Gomez MD [address] [place] [address] [place] [address] Referring Physician Pulmonary Disease 10/31/18 12/23/20 Parag Soto MD [address] [place] [address] [place] [address] Referring Physician Rheumatology 10/31/18 12/23/20 Martha Starks MD [address] [place] [address] [place] [address] Consulting Physician Cardiology 12/24/20 Puneet Uribe MD [address] [facility] [address] [place] [address] Consulting Physician Rheumatology 12/24/20 01/29/21 Shama Hines MD [address] [facility] [address] [place] [address] Consulting Physician Pain Management 01/19/21 Artis Grewal MD [address] [place] [address] Consulting Physician Rheumatology 01/30/21 Harrison Pena, JULIUS [address] [place] [address] Senior Backup Administrator 05/30/23 09/04/23 Nafisa Gregg, JULIUS [address] [place] [address] [place] [address] [place] [address] Senior Backup Administrator 06/06/23 06/12/23 Amy Mayes NP [address] [address] Nurse Practitioner Cardiovascular Disease 04/20/24 Shailesh Dunn MD [address] [facility] [address] [place] [address] Consulting Physician Pulmonary Disease 04/20/24 Sangita Farrar PA [address] [place] [address] Physician Real Estate Instructor Rheumatology 05/15/24 documented as of this encounter
--- OUTSIDE RECORDS SUMMARY | 2024-10-07 12:16 | XMS_ITS | Clinical Summary ---
Author Organization [facility] [address] Address [address] [place] [address] Care Team Providers Care Financial Accounting Manager Name Role Phone Sharan Linton MD Unavailable [phone] Martha Starks MD Unavailable [phone] Shama Hines MD Unavailable Artis Grewal MD Unavailable [phone] Alee Elizondo Primary Care Provider [phone] Amy Mayes NP Unavailable [phone] Shailesh Dunn MD Unavailable [phone] Sangita Farrar Unavailable Allergies Active Allergy Reactions [...] 05/07/20 Assessment & Plan (05/07/2024 8:57 PM FIBROUS PLASTERER): I have examined this patient and ordered [...] She has had evaluation by Urology at [facility] and has been told there is [...] 08/03/2023 Assessment & Plan (05/07/2024 8:56 PM FIBROUS PLASTERER): Discussed the patient's BMI. The BMI is [...] provided. Assessment & Plan (09/06/2023 9:38 AM FIBROUS PLASTERER): Discussed the patient's BMI. The BMI is above average. BMI management plan is completed. BMI Follow-up includes: nutrition counseling, exercise counseling and education provided. Patient has an obesity-related condition (not limited to: hypertension, obstructive sleep apnea, osteoarthritis, hyperlipidemia, diabetes, etc.). Therefore, morbid obesity may be documented for patients with a BMI between 35.00-39.99. Assessment & Plan (08/07/2023 7:51 PM FIBROUS PLASTERER): Discussed the patient's BMI. The BMI is above average. BMI management plan is completed. BMI Follow-up includes: nutrition counseling, exercise counseling and education provided. Patient has an obesity-related condition (not limited to: hypertension, obstructive sleep apnea, osteoarthritis, hyperlipidemia, diabetes, etc.). Therefore, morbid obesity may be documented for patients with a BMI between 35.00-39.99. Assessment & Plan (08/03/2023 7:45 AM FIBROUS PLASTERER): Discussed the patient's BMI. The BMI is above average. BMI management plan is completed. BMI Follow-up includes: nutrition counseling, exercise counseling and education provided. Primary osteoarthritis of right knee 07/08/2023 Assessment & Plan (05/07/2024 8:56 PM FIBROUS PLASTERER): Patient has arthritis in the right knee. Planning a total knee replacement with Dr. Alexus Motta on May 30 Assessment & Plan (08/03/2023 8:28 AM FIBROUS PLASTERER): Continue per ortho. She is seeing some improvement but it is difficult to know if the knee is rheumatoid versus osteo versus other etiology. Will await recommendations from JACQUI Raya but definitely encouraged her to become active as soon as possible. Status post total knee replacement using cement, right 05/19/2023 Assessment & Plan (06/02/2023 4:56 PM FIBROUS PLASTERER): Status post total knee replacement with Dr. Ge Sexton 04 May. She has just been released from rehab following up for her TCM visit. She appears to have an area of cellulitis at the incision site. She is also complaining of increased pain. Will check CBC CMP and inflammatory markers along with an x-ray. She plans to go to [facility] for the workup. Will follow up [...] provided. Assessment & Plan (06/02/2023 8:27 AM FIBROUS PLASTERER): Discussed the patients BMI: The BMI is [...] 12/20/2022 Assessment & Plan (05/07/2024 8:55 PM FIBROUS PLASTERER): Patient is on medication for her rheumatoid arthritis managed by [facility] Assessment & Plan (01/22/2024 8:13 PM CDT): Medications from [facility] contribute to her immunosuppressive state. Assessment & Plan (09/06/2023 9:41 AM FIBROUS PLASTERER): Medications are managed by [facility] for her rheumatoid arthritis Assessment & Plan (04/06/2023 7:44 PM CDT): Managed by [facility]. Currently on Plaquenil methotrexate Orencia [...] She has had evaluation by Urology at [facility] and has been told there is [...] capacity. Assessment & Plan (09/06/2023 9:41 AM FIBROUS PLASTERER): Continue per . She did not tolerate [...] Pate. Assessment & Plan (07/18/2022 10:20 AM FIBROUS PLASTERER): CT revealed pelvic lipomatosis that is compressing [...] 02/11/2022 Assessment & Plan (09/06/2023 9:41 AM FIBROUS PLASTERER): No change. Dysfunction of both eustachian tubes 02/11/2022 Myalgia, lower leg 01/11/2022 PLMD (periodic limb movement disorder) Assessment & Plan (08/02/2024 11:49 AM FIBROUS PLASTERER): Asymptomatic Assessment & Plan (06/22/2022 10:31 AM FIBROUS PLASTERER): Will continue Requip 1 mg nightly Assessment [...] bedtime. Assessment & Plan (07/13/2021 11:25 AM FIBROUS PLASTERER): Due to the patient stating that she [...] 06/04/2020 Assessment & Plan (08/23/2024 10:16 AM FIBROUS PLASTERER): Hepatitis negative 06/2020 Tspot negative 06/2020 Continue routine lab monitoring Maintain routine eye exams throughout the duration of taking hydroxychloroquine Assessment & Plan (07/30/2024 8:24 AM FIBROUS PLASTERER): Hepatitis negative 06/2020 Tspot negative 06/2020 Continue [...] hydroxychloroquine Assessment & Plan (09/01/2023 8:34 AM FIBROUS PLASTERER): Hepatitis negative 06/2020 Tspot negative 06/2020 Continue routine lab monitoring Maintain routine eye exams throughout the duration of taking hydroxychloroquine Assessment & Plan (06/29/2023 2:19 PM FIBROUS PLASTERER): Hepatitis negative 06/2020 Tspot negative 06/2020 Continue [...] hydroxychloroquine Assessment & Plan (07/14/2022 2:58 PM FIBROUS PLASTERER): Hepatitis negative 06/2020 Tspot negative 06/2020 Continue routine lab monitoring Maintain routine eye exams throughout the duration of taking hydroxychloroquine Assessment & Plan (06/03/2022 9:58 AM FIBROUS PLASTERER): Hepatitis negative 06/2020 Tspot negative 06/2020 Continue [...] hydroxychloroquine Assessment & Plan (09/03/2021 8:29 AM FIBROUS PLASTERER): Hepatitis negative 06/2020 Tspot negative 06/2020 Continue routine lab monitoring Maintain routine eye exams throughout the duration of taking hydroxychloroquine Assessment & Plan (06/03/2021 4:17 PM FIBROUS PLASTERER): Hepatitis negative 06/2020 Tspot negative 06/2020 Continue [...] hydroxychloroquine Assessment & Plan (09/02/2020 1:16 PM FIBROUS PLASTERER): Hepatitis negative 06/2020 Tspot negative 06/2020 Continue routine lab monitoring Maintain routine eye exams throughout the duration of taking hydroxychloroquine Assessment & Plan (07/09/2020 12:23 PM FIBROUS PLASTERER): Hepatitis negative 06/2020 Tspot negative 06/2020 Continue routine lab monitoring Maintain routine eye exams throughout the duration of taking hydroxychloroquine Drug-induced constipation 08/13/2019 Assessment & Plan (05/07/2024 8:54 PM FIBROUS PLASTERER): Patient with chronic constipation. Has been on [...] linzess Assessment & Plan (08/13/2019 8:57 AM FIBROUS PLASTERER): On Movantik with Dr. Soto Herpes zoster without complication 12/13/2018 Assessment & Plan (12/23/2018 10:18 PM CDT): Valtex to pharmacy. She has had shingles in the past. Pre-diabetes 10/31/2018 Assessment & Plan (05/07/2024 8:55 PM FIBROUS PLASTERER): Pre-diabetes/hyperglycemia is a precursor to Dm. Stressed [...] diabetes. Assessment & Plan (09/06/2023 9:40 AM FIBROUS PLASTERER): Pre-diabetes/hyperglycemia is a precursor to Dm. Stressed [...] diabetes. Assessment & Plan (09/11/2021 11:22 PM FIBROUS PLASTERER): Pre-diabetes/hyperglycemia is a precursor to Dm. Stressed importance of working on diet (decrease your simple sugars and one carbohydrate with each meal) and increase you exercise to achieve weight loss and this will help prevent you from progressing to diabetes. Assessment & Plan (05/29/2021 8:18 PM FIBROUS PLASTERER): Pre-diabetes/hyperglycemia is a precursor to Dm. Stressed [...] diabetes. Assessment & Plan (08/31/2020 9:34 AM FIBROUS PLASTERER): Pre-diabetes is a precursor to Dm. Stressed [...] diabetes. Assessment & Plan (08/13/2019 9:00 AM FIBROUS PLASTERER): This is a significant, separately identifiable problem [...] 10/31/2018 Assessment & Plan (05/07/2024 8:54 PM FIBROUS PLASTERER): Depression symptoms are stable with Wellbutrin XL 150 Cymbalta 60 b.i.d. Assessment & Plan (04/21/2024 8:50 PM CDT): Depression symptoms are stable with the Wellbutrin XL 150 and Cymbalta 60 b.i.d. Assessment & Plan (01/22/2024 8:11 PM CDT): Depression symptoms are stable with Wellbutrin and Cymbalta Assessment & Plan (09/06/2023 9:40 AM FIBROUS PLASTERER): Depression is stable with Wellbutrin and Cymbalta Assessment & Plan (08/03/2023 8:31 AM FIBROUS PLASTERER): Stable with Cymbalta 60 and Wellbutrin XL [...] Cymbalta Assessment & Plan (09/11/2021 11:26 PM FIBROUS PLASTERER): Continue Wellbutrin and Cymbalta Assessment & Plan (05/29/2021 8:22 PM FIBROUS PLASTERER): Continue Wellbutrin and Cymbalta Assessment & Plan (05/24/2021 10:39 AM FIBROUS PLASTERER): Continue Wellbutrin and Cymbalta Assessment & Plan (12/24/2020 9:07 AM CDT): Continue wellbutrin and cymbalta Assessment & Plan (08/31/2020 9:35 AM FIBROUS PLASTERER): Continue wellbutrin and cymbalta Assessment & Plan (02/18/2020 9:47 PM CDT): Stable with the Cymbalata Assessment & Plan (08/13/2019 8:59 AM FIBROUS PLASTERER): Stable with Cymbalta and Wellbutrin Assessment & [...] regimen. Med list updated to reflect the [id number] one daily and Prozac 40mg. Mixed hyperlipidemia 03/29/2018 Assessment & Plan (05/07/2024 8:54 PM FIBROUS PLASTERER): Encouraged patient to follow low fat/low chol [...] statin Assessment & Plan (09/06/2023 9:42 AM FIBROUS PLASTERER): Encouraged patient to follow low fat/low chol [...] statin Assessment & Plan (09/11/2021 11:26 PM FIBROUS PLASTERER): Encouraged patient to follow low fat/low chol diet like the Mediterranean diet. Increase good fats in the diet. Increase exercise. Monitor labs as needed. Continue statin Assessment & Plan (05/29/2021 8:22 PM FIBROUS PLASTERER): Encouraged patient to follow fat/low chol diet like the Mediterranean diet. Increase good fats in the diet. Increase exercise. Monitor labs as needed. Continue statin Assessment & Plan (05/24/2021 10:39 AM FIBROUS PLASTERER): Encouraged patient to follow fat/low chol diet like the Mediterranean diet. Increase good fats in the diet. Increase exercise. Monitor labs as needed. Continue statin Assessment & Plan (12/24/2020 9:07 AM CDT): Encouraged patient to follow fat/low chol diet like the Mediterranean diet. Increase good fats in the diet. Increase exercise. Monitor labs as needed. Continue statin Assessment & Plan (08/31/2020 9:34 AM FIBROUS PLASTERER): Encouraged patient to follow fat/low chol diet like the Mediterranean diet. Increase good fats in the diet. Increase exercise. Monitor labs as needed. Continue statin Assessment & Plan (02/18/2020 9:46 PM CDT): Encouraged patient to continue low fat/low chol diet. Continue exercise. Increase good fats in the diet. Monitor labs as needed. Assessment & Plan (08/13/2019 8:59 AM FIBROUS PLASTERER): Encouraged patient to continue low fat/low chol [...] future Assessment & Plan (09/06/2023 9:40 AM FIBROUS PLASTERER): Continue PPI Assessment & Plan (04/06/2023 7:36 PM CDT): Continue PPI p.r.n. Assessment & Plan (01/20/2023 8:13 PM CDT): Continue PPI Assessment & Plan (09/12/2022 6:13 PM CDT): Continue PPI p.r.n. Assessment & Plan (06/03/2022 3:40 PM FIBROUS PLASTERER): Pyrosis poorly controlled on Nexium. Pt has [...] PPI Assessment & Plan (09/11/2021 11:26 PM FIBROUS PLASTERER): Continue PPI Assessment & Plan (12/24/2020 9:05 AM CDT): Continue PPI Assessment & Plan (02/18/2020 9:45 PM CDT): Continue PPI. Saw Dr. Linton for increased GERD sxs. If persist, encouraged to followup again with Dr. Linton. Assessment & Plan (08/13/2019 8:58 AM FIBROUS PLASTERER): Stable with PPI Assessment & Plan (04/29/2019 [...] exertion) Assessment & Plan (06/22/2022 10:30 AM FIBROUS PLASTERER): Patient is not currently using inhalers. She [...] 10/14/2015 Assessment & Plan (08/02/2024 11:49 AM FIBROUS PLASTERER): Due to the patient stating the pressure [...] readjusted. She denied need for supplies. DME [facility] Assessment & Plan (05/07/2024 8:55 PM FIBROUS PLASTERER): Continue with CPAP. Assessment & Plan (04/21/2024 8:49 PM CDT): Continue per Dr. Dunn. Has all her needed supplies for CPAP which she is using every night. Continue with Requip 0.5 mg HS for restless leg Assessment & Plan (01/22/2024 8:08 PM CDT): Continue CPAP per Dr. Dunn Assessment & Plan (09/06/2023 9:40 AM FIBROUS PLASTERER): Continue CPAP Assessment & Plan (06/21/2023 10:14 AM FIBROUS PLASTERER): Patient continue to wear her CPAP at [...] CPAP Assessment & Plan (06/22/2022 10:31 AM FIBROUS PLASTERER): Will continue CPAP therapy at an auto titrating range of 7-20 cm water pressure. Denied need for supplies. [facility] Assessment & Plan (05/02/2022 9:15 [...] water pressure. Patient denied need for supplies. [employer] patient. Patient is benefitting CPAP Assessment & Plan (09/11/2021 11:22 PM FIBROUS PLASTERER): Continue CPAP. Patient has all needed supplies. Assessment & Plan (07/13/2021 11:27 AM FIBROUS PLASTERER): Due to the patient stating she does not have enough pressure in her machine, I have increased the pressure to 13 cm water pressure. The patient denied need for for supplies. [employer]zle patient. Have also ordered a new smart card set at 13 cm water pressure. Benefitting from CPAP therapy Assessment & Plan (05/29/2021 8:14 PM FIBROUS PLASTERER): Continue CPAP. Assessment & Plan (02/17/2021 11:09 AM CDT): The patient continues to be compliant with her CPAP at 8 cm water pressure. She has developed worsening daytime hypersomnia. She also has morning headaches and dry mouth. I have recommended proceeding with a CPAP titration study starting at 8 cm water pressure. Her DME is [facility]. Assessment & Plan (12/24/2020 9:04 AM CDT): Continue CPAP. Would like to see Pulm[facility] at [facility] as difficulty getting in consistently at [place] and most of her care is now [facility] Assessment & Plan (02/18/2020 9:44 PM CDT): Continue CPAP Assessment & Plan (08/13/2019 8:46 AM FIBROUS PLASTERER): Using the CPAP. Has equipment as needed. [...] noted. Assessment & Plan (08/23/2024 10:16 AM FIBROUS PLASTERER): 02/2021 XR L knee with mild to moderate OA, now s/p B TKA. Following with ortho as planned. Assessment & Plan (07/30/2024 11:23 AM FIBROUS PLASTERER): 02/2021 XR L knee with mild to [...] March. Assessment & Plan (09/01/2023 3:42 PM FIBROUS PLASTERER): 02/2021 XR L knee with mild to moderate OA, R knee negative. Had injections with ortho without benefit, now s/p L TKA. Assessment & Plan (06/30/2023 12:46 PM FIBROUS PLASTERER): 02/2021 XR L knee with mild to [...] g/d. Assessment & Plan (07/15/2022 1:41 PM FIBROUS PLASTERER): 02/2021 XR L knee with mild to moderate OA, R knee negative. Had injections with ortho with benefit. Unable to afford PT. Can continue Tylenol Arthritis, not to exceed 4 g/d. Assessment & Plan (06/03/2022 9:58 AM FIBROUS PLASTERER): 02/2021 XR L knee with mild to [...] evaluation. Assessment & Plan (09/03/2021 11:27 AM FIBROUS PLASTERER): XR L knee with mild to moderate [...] able. Assessment & Plan (06/04/2021 10:27 AM FIBROUS PLASTERER): XR L knee with mild to moderate [...] above. Assessment & Plan (09/03/2020 12:23 PM FIBROUS PLASTERER): 10/27/2017 XR L knee: mild tricompartmental OA. Will continue meloxicam as above. Assessment & Plan (07/09/2020 12:24 PM FIBROUS PLASTERER): 10/27/2017 XR L knee: mild tricompartmental OA. [...] examination. Assessment & Plan (08/23/2024 12:54 PM FIBROUS PLASTERER): Moderate cdai with report of increasing pain, [...] needed. Assessment & Plan (07/30/2024 11:22 AM FIBROUS PLASTERER): Moderate cdai with report of increased morning [...] with labs near her home ([facility] in [place]), but the following month will need to plan for an in person visit. She expressed understanding and agreement with this plan. Continue methotrexate 20 mg weekly, folic acid 2 mg daily, and hydroxychloroquine 200 mg BID. Labs today as below. Assessment & Plan (05/07/2024 8:55 PM FIBROUS PLASTERER): Managed by [facility]. Currently on Plaquenil and methotrexate and Orencia folic acid Mobic and gabapentin. Stressed she needs to be in contact with her hadoop admin on when and which medicines to stop for the surgery. Assessment & Plan (04/21/2024 8:49 PM CDT): Continue per [facility]. They currently manage her rheumatoid arthritis [...] Plan (01/22/2024 8:17 PM CDT): Continue per [facility] as they manage her condition. Assessment & Plan (11/24/2023 9:58 AM CDT): Low cdai without inflammatory sounding pain. Will continue methotrexate 20 mg weekly, folic acid 2 mg daily, hydroxychloroquine 200 mg BID, and Orencia and monitor. Labs today as below. Follow up in 3 months or sooner as needed. Assessment & Plan (09/06/2023 9:42 AM FIBROUS PLASTERER): Rheumatoid arthritis is managed by [facility]. Currently on Plaquenil methotrexate Orencia and folic acid Assessment & Plan (09/01/2023 3:39 PM FIBROUS PLASTERER): Overall stable without notable synovitis and no inflammatory sounding pain. Will continue methotrexate 20 mg weekly, folic acid 2 mg daily, hydroxychloroquine 200 mg BID, and Orencia and monitor. Labs today as below. Follow up in 3 months or sooner as needed. Assessment & Plan (08/03/2023 8:28 AM FIBROUS PLASTERER): Continue with rheumatology. Assessment & Plan (06/30/2023 12:43 PM FIBROUS PLASTERER): Overall stable without notable synovitis and no inflammatory sounding pain. Will continue methotrexate 20 mg weekly, folic acid 2 mg daily, hydroxychloroquine 200 mg BID, and Orencia and monitor. Labs today as below. Assessment & Plan (06/02/2023 4:49 PM FIBROUS PLASTERER): Continue per Rheumatology Assessment & Plan (04/06/2023 7:35 PM CDT): Continue per Rheumatology. She has been in discussion with them on what medications to stop prior to her knee surgery. She states she was told to take all of her medicines accept the Orencia. Assessment & Plan (01/20/2023 8:12 PM CDT): Continue per Rheumatology [facility] Assessment & Plan (01/13/2023 3:42 [...] Plan (09/12/2022 6:06 PM CDT): Continue with [facility] Assessment & Plan (07/15/2022 1:41 PM FIBROUS PLASTERER): Low cdai. Significantly improved after IM triamcinolone [...] needed. Assessment & Plan (06/03/2022 3:37 PM FIBROUS PLASTERER): High cdai. Previously felt well controlled with current regimen. Due to burden of disease will give patient a triamcinolone injection. Patient made aware of SE of steroids including but not limited to HTN, increased blood glucose, cataracts, glaucoma, AVN, and osteoporosis with lobsterman use. Should she flare again shortly after [...] (01/23/2022 4:57 PM CDT): Continue management per [facility] Assessment & Plan (12/07/2021 9:02 AM CDT): Low cdai. Denies inflammatory sounding joint pain. Continue methotrexate 25 mg weekly, folic acid to 2 mg daily, Rinvoq 15 mg daily, hydroxychloroquine 200 mg BID, and cyclobenzaprine 5 mg qhs and monitor. Labs today as below. Plan for follow up in 3 months or sooner as needed. Assessment & Plan (09/11/2021 11:14 PM FIBROUS PLASTERER): Continue per [facility] Assessment & Plan (09/03/2021 11:25 AM FIBROUS PLASTERER): cdai = 12. Pt suspects increased joint [...] needed. Assessment & Plan (06/04/2021 10:25 AM FIBROUS PLASTERER): Low cdai. Denies inflammatory sounding pain at present. Will plan to continue methotrexate 25 mg weekly, folic acid to 2 mg daily, Rinvoq 15 mg daily, hydroxychloroquine 200 mg BID, and cyclobenzaprine 5 mg qhs and monitor. Labs today as below. Plan for follow up in 3 months or sooner as needed. Assessment & Plan (05/31/2021 9:15 PM FIBROUS PLASTERER): Continue per Rheumatology Assessment & Plan (05/29/2021 8:13 PM FIBROUS PLASTERER): Continue per Rheumatology. Currently on Plaquenil methotrexate and folic acid. Assessment & Plan (05/24/2021 10:38 AM FIBROUS PLASTERER): Continue per Rheumatology Assessment & Plan (03/05/2021 [...] needed. Assessment & Plan (09/03/2020 12:22 PM FIBROUS PLASTERER): Low cdai. Continues to feel improved with [...] needed. Assessment & Plan (08/31/2020 9:34 AM FIBROUS PLASTERER): Continue per [facility] Assessment & Plan (07/09/2020 12:22 PM FIBROUS PLASTERER): 64yoF with a h/o seropositive RA diagnosed [...] time. Assessment & Plan (06/04/2020 11:14 AM FIBROUS PLASTERER): 64yoF with a h/o seropositive RA diagnosed [...] needed. Assessment & Plan (05/14/2020 9:33 PM FIBROUS PLASTERER): Refer to new [employer] as Dr. Soto has . Assessment & Plan (02/18/2020 9:46 PM CDT): Continue per Rheum Assessment & Plan (08/13/2019 8:59 AM FIBROUS PLASTERER): Continue per Dr. Soto Assessment & Plan [...] responding to Reclast. Forteo was tried by [facility] and she could not tolerate. Has [...] of her osteoporosis, recommended evaluation by the [facility], unfortunately their first available appt was in November 2024. Recommended today that she check with [facility] (at [facility]) to see how far out they are scheduling new patients, though she does not like this option due to distance from her house. Assessment & Plan (09/06/2023 9:40 AM FIBROUS PLASTERER): Managed by [facility]. Per patient they are making a referral to bone metabolism at [facility] she has not seen significant improvement with the Forteo or the Reclast. Assessment & Plan (09/01/2023 3:43 PM FIBROUS PLASTERER): DEXA: Lspine BMD 0.809 Tscore -2.2, L [...] of her osteoporosis, recommend evaluation by the [facility], provided contact info for Dr. Castillo. Pt in agreement with plan. Assessment & Plan (06/30/2023 12:49 PM FIBROUS PLASTERER): DEXA: Lspine BMD 0.809 Tscore -2.2, L [...] PM CDT): Continue to monitor. Managed by [facility]. Patient is on Reclast calcium vitamin-D [...] exercise Assessment & Plan (07/15/2022 1:42 PM FIBROUS PLASTERER): 01/27/2021 DEXA: Lspine -1.8, L femoral neck -1.9, L total hip -1.2, R femoral neck -2.3, R total hip -1.0, FRAX major 32% and hip 7%. Received Reclast 07/2021. Continue yearly Reclast, scheduled for 07/22 Assessment & Plan (06/03/2022 3:38 PM FIBROUS PLASTERER): 01/27/2021 DEXA: Lspine -1.8, L femoral neck [...] Plan (01/23/2022 5:02 PM CDT): Managed by [facility] currently on Reclast calcium and vitamin-D Assessment & Plan (12/07/2021 9:04 AM CDT): 01/27/2021 DEXA: Lspine -1.8, L femoral neck -1.9, L total hip -1.2, R femoral neck -2.3, R total hip -1.0, FRAX major 32% and hip 7%. Received Reclast 07/2021. Continue yearly Reclast. Assessment & Plan (09/03/2021 11:26 AM FIBROUS PLASTERER): 01/27/2021 DEXA: Lspine -1.8, L femoral neck -1.9, L total hip -1.2, R femoral neck -2.3, R total hip -1.0, FRAX major 32% and hip 7%. Received Reclast 07/2021. Continue yearly reclast and daily vitamin D-calcium supplement. Assessment & Plan (06/04/2021 10:27 AM FIBROUS PLASTERER): 01/27/2021 DEXA: Lspine -1.8, L femoral neck [...] order provided today, she will schedule at [facility] Assessment & Plan (12/24/2020 9:06 AM CDT): Continue Reclast thru Rheum Continue calcium, vitD and exercise Assessment & Plan (12/03/2020 10:45 AM CDT): Vitamin D level was 68. Received Reclast 07/09/2020. Last DEXA per available records was 01/31/2019, due this summer - order provided today, she will schedule at [facility] Assessment & Plan (09/03/2020 12:23 PM FIBROUS PLASTERER): Vitamin D level was 68. Received Reclast 07/09/2020. Last DEXA per available records was 01/31/2019, due this summer. Assessment & Plan (07/09/2020 12:23 PM FIBROUS PLASTERER): Overdue for Reclast, last infusion was 03/28/2019, will receive infusion today. Vitamin D level was 68 Last DEXA per available records was 01/31/2019 Assessment & Plan (06/04/2020 11:15 AM FIBROUS PLASTERER): Overdue for Reclast, last infusion was 03/28/2019, will check benefits. Recheck vitamin D level now. Last DEXA per available records was 01/31/2019 Assessment & Plan (02/18/2020 9:46 PM CDT): Calcium, vit D and exercise. Continue to monitor DXA Assessment & Plan (08/13/2019 8:58 AM FIBROUS PLASTERER): Continue with Calcium, Vit D and Exercise. [...] Krishnamurthy. 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 Daniels Stressed importance of very close follow-up BMI 37.0-37.9, adult 09/06/2023 024 Assessment & Plan (10/13/2023 7:38 AM CDT): Discussed the patient's BMI. The BMI is above average. BMI management plan is completed. BMI Follow-up includes: nutrition counseling, exercise counseling and education provided. Assessment & Plan (09/06/2023 9:42 AM FIBROUS PLASTERER): Discussed the patient's BMI. The BMI is above average. BMI management plan is completed. BMI Follow-up includes: nutrition counseling, exercise counseling and education provided. Hyperglycemia 09/06/2023 09/06/2023 Positive depression screening 09/06/2023 09/06/2023 Annual physical exam 09/06/2023 024 Assessment & Plan (09/06/2023 9:43 AM FIBROUS PLASTERER): Encouraged healthy lifestyle, good nutrition and exercise. Encouraged Calcium and Vitamin D and weight bearing exercise for bone health. Reviewed immunizations Reviewed age appropirate screenings. Right knee pain 08/09/2023 09/06/2023 Sinus congestion 08/07/2023 09/06/2023 Assessment & Plan (08/07/2023 7:54 PM FIBROUS PLASTERER): Persistent sinusitis symptoms along with cough. Will start doxy b.i.d.. Start antihistamine (Claritin OR Zyrtec), Mucinex 12hour and Steroid nasal spray (Flonase). Push fluids. Rest. Supportive care. If sxs worsen or don\'t improve, pt is to followup in the office. Acute cough 08/07/2023 01/22/2024 Assessment & Plan (08/07/2023 7:55 PM FIBROUS PLASTERER): Persistent sinusitis symptoms along with cough. Will start doxy b.i.d.. Start antihistamine (Claritin OR Zyrtec), Mucinex 12hour and Steroid nasal spray (Flonase). Push fluids. Rest. Supportive care. If sxs worsen or don\'t improve, pt is to followup in the office. BMI 35.0-35.9,adult 08/03/2023 09/06/19 24 Assessment & Plan (08/07/2023 7:51 PM FIBROUS PLASTERER): Discussed the patient's BMI. The BMI is above average. BMI management plan is completed. BMI Follow-up includes: nutrition counseling, exercise counseling and education provided. Assessment & Plan (08/03/2023 8:29 AM FIBROUS PLASTERER): Discussed the patient's BMI. The BMI is [...] 01/22/2024 Assessment & Plan (06/02/2023 4:57 PM FIBROUS PLASTERER): Later in the day received critical lab call for a CO2 value at 42. My staff contacted the patient and she was instructed to go to the ER for further evaluation to determine underlying cause. She states throughout the day she has noticed a little bit more shortness of breath. She plans to have her brother drive her [facility]. Charge nurse was notified of the [...] surgery. 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 Her chronic medical conditions are stable. [facility] as instructed her to hold the [...] Dr. Ge Sexton on May 04 at [facility]. Need for vaccination for Strep pneumoniae [...] symptoms worsen or do not respond to [id number] allergy medicines within the next week she may call and will consider antibiotic. Left knee pain 09/13/2022 09/06/2023 BMI 39.0-39.9,adult 08/23/2022 11/09/19 Assessment & Plan (10/25/2022 3:32 PM CDT): Discussed the patient's BMI. The BMI is above average. BMI management plan is completed. BMI Follow-up includes: nutrition counseling, exercise counseling and education provided. Assessment & Plan (08/23/2022 2:19 PM FIBROUS PLASTERER): Discussed the patient's BMI. The BMI is [...] plans Assessment & Plan (07/18/2022 10:20 AM FIBROUS PLASTERER): CT revealed pelvic lipomatosis that is compressing [...] 12/20/2022 Assessment & Plan (07/18/2022 10:21 AM FIBROUS PLASTERER): CT revealed pelvic lipomatosis that is compressing [...] plan, Assessment & Plan (07/08/2022 12:33 PM FIBROUS PLASTERER): Patient has had dysuria. She was started [...] STAT abd/pelvis with and without contrast at [place]. Check labs STAT. Acute right flank pain 07/08/202204/06 Assessment & Plan (07/18/2022 10:21 AM FIBROUS PLASTERER): CT revealed pelvic lipomatosis that is compressing [...] plan, Assessment & Plan (07/08/2022 5:58 PM FIBROUS PLASTERER): Images from the original note were not [...] STAT abd/pelvis with and without contrast at [facility]. Check labs STAT. STAT CT Abd/pelvis without [...] 09/06/2023 Assessment & Plan (07/08/2022 12:33 PM FIBROUS PLASTERER): Patient has had dysuria. She was started [...] STAT. Assessment & Plan (07/06/2022 8:50 AM FIBROUS PLASTERER): Pt presents with dysuria. Urine dip completed. [...] 35.00-39.99. Assessment & Plan (07/18/2022 10:23 AM FIBROUS PLASTERER): Discussed the patient's BMI. The BMI is above average. BMI management plan is completed. BMI Follow-up includes: nutrition counseling, exercise counseling and education provided. Assessment & Plan (07/08/2022 12:30 PM FIBROUS PLASTERER): Discussed the patient's BMI. The BMI is [...] She has received multiple injections from her hadoop admin regarding her knee but yesterday when she [...] 01/23/2022 Assessment & Plan (09/11/2021 11:28 PM FIBROUS PLASTERER): Patient has never had a full skin exam. She has quite a few lesions scattered and would benefit from a full exam. Will make referral Annual physical exam 09/11/2021 022 Assessment & Plan (09/11/2021 11:28 PM FIBROUS PLASTERER): Encouraged healthy lifestyle, good nutrition and exercise. Encouraged Calcium and Vitamin D and weight bearing exercise for bone health. Reviewed immunizations Reviewed age appropirate screenings. Cough 08/13/2021 01/23/2022 Assessment & Plan (08/13/2021 3:43 PM FIBROUS PLASTERER): Patient to presume positive COVID/FLU until results are available and plan to self isolate for up to 10 days from the onset of sxs. Check COVID/FLU test thru [facility] collection site in [place]. Let pt know the newest CDC recommendations [...] future. Assessment & Plan (07/13/2021 11:28 AM FIBROUS PLASTERER): I have ordered the patient Claritin 10 [...] provided. Assessment & Plan (09/11/2021 11:27 PM FIBROUS PLASTERER): Obesity is unchanged. Discussed the patient's BMI. The BMI is above average. BMI management plan is completed. BMI Follow-up includes: nutrition counseling, exercise counseling and education provided. Assessment & Plan (05/29/2021 8:24 PM FIBROUS PLASTERER): Obesity is unchanged. Discussed the patient's BMI. The BMI is above average. BMI management plan is completed. BMI Follow-up includes: nutrition counseling, exercise counseling and education provided. Assessment & Plan (05/12/2021 1:26 PM FIBROUS PLASTERER): Obesity is unchanged. Discussed the patient's BMI. The BMI is above average. BMI management plan is completed. BMI Follow-up includes: nutrition counseling, exercise counseling and education provided. BMI 37.0-37.9, adult 05/12/2021 05 022 Assessment & Plan (09/11/2021 11:27 PM FIBROUS PLASTERER): Obesity is unchanged. Discussed the patient's BMI. The BMI is above average. BMI management plan is completed. BMI Follow-up includes: nutrition counseling, exercise counseling and education provided. Assessment & Plan (05/29/2021 8:24 PM FIBROUS PLASTERER): Obesity is unchanged. Discussed the patient's BMI. The BMI is above average. BMI management plan is completed. BMI Follow-up includes: nutrition counseling, exercise counseling and education provided. Assessment & Plan (05/12/2021 1:26 PM FIBROUS PLASTERER): Obesity is unchanged. Discussed the patient's BMI. The BMI is above average. BMI management plan is completed. BMI Follow-up includes: nutrition counseling, exercise counseling and education provided. Tinea corporis 04/14/2021 01/23/2022 Assessment & Plan (05/31/2021 9:15 PM FIBROUS PLASTERER): Improving with Lotrisone. Keep the area clean and dry Assessment & Plan (05/29/2021 8:24 PM FIBROUS PLASTERER): Lotrisone to pharmacy. Encouraged her to keep the area clean and dry use her dryer to dry the skin before applying the cream. She is to call if symptoms worsen or do not resolve. Need for immunization against influenza 04/14/2021 05/31/2021 Assessment & Plan (05/29/2021 8:24 PM FIBROUS PLASTERER): Fluid updated in the office Medicare annual wellness visit, subsequent 04/13/2021 05/31/2021 Assessment & Plan (05/29/2021 8:23 PM FIBROUS PLASTERER): Encouraged healthy lifestyle, good nutrition and exercise. [...] 12/30/2020 Assessment & Plan (08/31/2020 9:31 AM FIBROUS PLASTERER): Error. This should be right calf but PT order sent and corrected so unable to remove. Fatigue 08/31/2020 09/06/2023 Assessment & Plan (04/06/2023 7:43 PM CDT): Probably multifactorial. Check labs and followup to re-evaluate Assessment & Plan (05/02/2022 9:16 PM CDT): Probably multifactorial. Check labs and followup to re-evaluate Assessment & Plan (08/31/2020 9:34 AM FIBROUS PLASTERER): Probably multifactorial. Check labs and followup to re-evaluate Pain in both lower extremities 08/31/2020 09/06/2023 Assessment & Plan (09/01/2023 3:41 PM FIBROUS PLASTERER): Cramping lower leg pain has resolved with [...] 021 Assessment & Plan (08/31/2020 9:33 AM FIBROUS PLASTERER): Obesity is unchanged. Discussed the patient's BMI. The BMI is above average. BMI management plan is completed. BMI Follow-up includes: nutrition counseling, exercise counseling and education provided. Pain of right calf 08/26/2020 Assessment & Plan (08/31/2020 9:31 AM FIBROUS PLASTERER): This is a significant, separately identifiable problem that was evaluated and managed on the same day as the wellness exam Unable to rule out DVT with her calf pain/sxs. Check STAT Venous doppler. Recvd Results and discussed with patient via phone. Negative for DVT. Recommend PT. Prefers [place] Annual physical exam 08/24/2020 021 Assessment & Plan (08/31/2020 9:34 AM FIBROUS PLASTERER): Encouraged healthy lifestyle, good nutrition and exercise. Encouraged Calcium and Vitamin D and weight bearing exercise for bone health. Reviewed immunizations Reviewed age appropirate screenings. Dizziness 05/07/2020 09/06/2023 Assessment & Plan (05/14/2020 9:35 PM FIBROUS PLASTERER): Suspect the dizziness is inner ear related. [...] imaging. Assessment & Plan (05/07/2020 1:49 PM FIBROUS PLASTERER): Declines to report to er now 'I [...] 05/14/2020 Assessment & Plan (05/07/2020 1:49 PM FIBROUS PLASTERER): Declines to report to er now 'I [...] 12/30/2020 Assessment & Plan (05/07/2020 1:49 PM FIBROUS PLASTERER): Declines to report to er now 'I [...] provided Assessment & Plan (05/31/2021 9:15 PM FIBROUS PLASTERER): Mammogram order provided Assessment & Plan (02/18/2020 9:47 PM CDT): Mammogram order provided today Medicare annual wellness visit, subsequent 02/15/2020 02/15/2020 Precordial pain 09/04/2019 09/06/2023 Assessment & Plan (08/07/2023 7:50 PM FIBROUS PLASTERER): Workup in the hospital. Cardiology states her [...] inhaler. Assessment & Plan (07/13/2021 11:26 AM FIBROUS PLASTERER): The patient will continue with Dulera 2 [...] 020 Assessment & Plan (08/13/2019 8:59 AM FIBROUS PLASTERER): Encouraged healthy lifestyle, good nutrition and exercise. Encouraged Calcium and Vitamin D and weight bearing exercise for bone health. Reviewed immunizations Reviewed age appropirate screenings. Obesity, morbid, BMI 40.0-49.9 08/13/2019 09/23/2020 Assessment & Plan (08/26/2020 7:10 AM FIBROUS PLASTERER): Obesity is unchanged. Discussed the patient's BMI. The BMI is above average. BMI management plan is completed. BMI Follow-up includes: nutrition counseling, exercise counseling and education provided. Assessment & Plan (05/14/2020 9:33 PM FIBROUS PLASTERER): Obesity is unchanged. Discussed the patient's BMI. [...] provided. Assessment & Plan (08/13/2019 8:58 AM FIBROUS PLASTERER): Obesity is unchanged. Discussed the patient's BMI. [...] change Assessment & Plan (08/13/2019 9:01 AM FIBROUS PLASTERER): This is a significant, separately identifiable problem [...] 01/22/2024 Assessment & Plan (09/06/2023 9:42 AM FIBROUS PLASTERER): Probably multifactorial. Check labs and followup to re-evaluate Assessment & Plan (09/03/2021 11:28 AM FIBROUS PLASTERER): She notes increased fatigue and lack of [...] re-evaluate Assessment & Plan (08/13/2019 9:08 AM FIBROUS PLASTERER): Probably multifactorial. Check labs and followup to re-evaluate Check labs prior to next visit BMI 40.0-44.9, adult 08/02/2019 020 Assessment & Plan (08/13/2019 8:57 AM FIBROUS PLASTERER): Obesity is unchanged. Discussed the patient's BMI. The BMI is above average. BMI management plan is completed. BMI Follow-up includes: nutrition counseling, exercise counseling and education provided. Assessment & Plan (08/02/2019 7:21 AM FIBROUS PLASTERER): Obesity is unchanged. Discussed the patient's BMI. The BMI is above average. BMI management plan is completed. BMI Follow-up includes: nutrition counseling, exercise counseling and education provided. Morbid obesity 08/02/2019 08/13/2019 Assessment & Plan (08/02/2019 7:20 AM FIBROUS PLASTERER): Obesity is unchanged. Discussed the patient's BMI. The BMI is above average. BMI management plan is completed. BMI Follow-up includes: nutrition counseling, exercise counseling and education provided. Acute non-recurrent maxillary sinusitis 08/02/2019 08/13/2019 Assessment & Plan (08/02/2019 7:47 AM FIBROUS PLASTERER): Start antibiotic, antihistamine, Mucinex and Steroid nasal [...] foot. She is being sent directly to [facility] and they were working her in [...] 21 Assessment & Plan (05/14/2020 9:33 PM FIBROUS PLASTERER): Completed Doxy and steroid. No s/s infection. [...] p.r.n. Assessment & Plan (08/13/2019 8:59 AM FIBROUS PLASTERER): Continue with NSAIDs prn Atheroscler of [place] artery of both legs with intermit claudication 10/31/2018 12/20/2022 Assessment & Plan (09/11/2021 11:23 PM FIBROUS PLASTERER): Continue per vascular. She is on aspirin and statin Assessment & Plan (12/24/2020 9:03 AM CDT): Sxs stable. On ASA, statin and encouraged daily exercise. Assessment & Plan (02/18/2020 9:43 PM CDT): Continue per cardio. On ASA and statin Assessment & Plan (08/13/2019 8:45 AM FIBROUS PLASTERER): Continues with Dr. Alonso salmeron Assessment & Plan (11/01/2018 11:00 PM CDT): Pt sxs well controlled. On ASA Coronary artery disease of n ative artery of [place] heart with stable angina pectoris 10/31/2018 12/30/2020 Assessment & Plan (08/13/2019 8:36 AM FIBROUS PLASTERER): On ASA and Nitrate. Continue per cardio Depression 07/16/2018 09/11/2021 Frontal sinusitis 06/26/2018 12/24/2020 Leukopenia 03/29/2018 12/30/2020 Other chronic pain 08/05/2017 3 Chronic seasonal allergic rh initis due to pollen 04/25/2017 12/30/2020 Assessment & Plan (12/24/2020 9:03 AM CDT): Continue current regimen with singulair and otc Assessment & Plan (02/18/2020 9:44 PM CDT): Continue with otc regimen Assessment & Plan (08/13/2019 8:46 AM FIBROUS PLASTERER): Continue current regimen Assessment & Plan (11/01/2018 [...] potassium Assessment & Plan (09/11/2021 11:26 PM FIBROUS PLASTERER): Bp is stable/in acceptable range for any co-morbidities. Encouraged to limit sodium intake and exercise for weight control. Currently stable without medication Assessment & Plan (05/29/2021 8:19 PM FIBROUS PLASTERER): Bp is stable/in acceptable range for any co-morbidities. Encouraged to limit sodium intake and exercise for weight control. Continue Lasix is helping with the swelling and addition. Blood pressure stable Assessment & Plan (05/24/2021 10:38 AM FIBROUS PLASTERER): Continue Lasix potassium Assessment & Plan (12/24/2020 9:05 AM CDT): Bp is stable/in acceptable range for any co-morbidities. Encouraged to limit sodium intake and exercise for weight control. Assessment & Plan (08/31/2020 9:32 AM FIBROUS PLASTERER): Bp is stable/in acceptable range for any co-morbidities. Encouraged to limit sodium intake and exercise for weight control. Stable with laxis currently Assessment & Plan (02/18/2020 9:44 PM CDT): Bp is stable/in acceptable range for any co-morbidities. Encouraged to limit sodium intake and exercise for weight control. Assessment & Plan (08/13/2019 8:57 AM FIBROUS PLASTERER): Bp is stable/in acceptable range for any [...] difficulty pulling them. Recommend finding some on [employer] that fit her calf that she can zip on and off. Showed them to her on [employer] and where to order them. She states she will try to get them. Assessment & Plan (05/31/2021 9:16 PM FIBROUS PLASTERER): Improving slowly. May have been due to the Relafen. She is on 60 of Lasix with potassium 10 mEq daily. Continue with current plan. Keep legs elevated. Utilize compressi to improve cleared. on hose. Call if symptoms worsen or do not continue to improve. Assessment & Plan (05/29/2021 8:23 PM FIBROUS PLASTERER): Persistent lower extremity edema that has improved [...] CMP. Assessment & Plan (05/24/2021 10:39 AM FIBROUS PLASTERER): Patient that her swelling was improving since discharge for over the last day or so it seems to be increasing. Will increase the Lasix to 40mg Start K 10meq daily Recheck labs in 5 days Assessment & Plan (08/31/2020 9:33 AM FIBROUS PLASTERER): Continue lasix Palpitations 12/08/2015 12/30/2020 Overview (10/09/2016): Palpitations Other abnormal glucose 11/11/201508/31 Asthma 10/14/2015 12/24/2020 Assessment & Plan (08/13/2019 8:49 AM FIBROUS PLASTERER): Continue with current regimen and with Pulmonary Assessment & Plan (11/01/2018 10:53 PM CDT): Currently Stable with regimen. Monitor closely with current allergy season. Followup Dr. Gomez as directed. Menopause 10/14/2015 12/30/2020 Cervical pain (neck) 10/14/2015 023 Encounters Date Type Department Care Team Description 10/04/2024 Results Follow-Up [facility] [address] [place] [address] Road [address] [place] [phone] Alee Elizondo PA 10/04/2024 Orders Only [address] [place] [phone] ProviderTania MD 10/03/2024 Telephone [facility] [address] [place] [address] [place] [phone] Alee Elizondo PA 09/26/2024 Orders Only [address] [place] [phone] Alee Elizondo PA Breast cancer screening by mammogram (Primary Dx) 09/25/2024 11:00 AM CDT Office Visit [facility] at [address] [phone] Jessica Collins NP Influenza A (Primary Dx); Acute cough 09/25/2024 Results Follow-Up [facility] Family Medicine [address] [place] [phone] Alee Elizondo PA 09/20/2024 8:00 AM CDT Office Visit [facility] Cardiology [address] [place] [phone] Devika Marin MD Venous insufficiency (chronic) (peripheral) (Primary Dx); Mixed hyperlipidemia 09/20/2024 Telephone [facility] [address] [place] [phone] Michael Motta MD med clarification 09/14/[address] [phone] [facility] 09/13/2024 2:45 PM CDT Office Visit [facility] [address] [place] [address] [place] [phone] Michael Motta MD Chronic pain of right knee (Primary Dx); History of total knee arthroplasty, right 09/13/2024 1:44 PM CDT - 09/13/2024 11:59 PM CDT Hospital Encounter [facility] Di[facility] [address] [place] [phone] Chronic pain of right knee Discharge Disposition: Discharge to home or self care 09/04/2024 Results Follow-Up [facility] [address] [place] [phone] Alee Elizondo PA 08/31/2024 Telephone [facility] [address] [place] [phone] Alee Elizondo PA Medical Question/Miscellaneou s 08/31/2024 Orders Only [address] [place] [phone] ProviderTania MD 08/29/2024 Nurse Triage [address] [place] [address] Alee Elizondo PA 08/29/2024 Telephone [facility] Pulmonary [address] [phone] Shailesh Dunn MD Med Refill (Ropinirol HCL 0.5MG tab) 08/24/2024 Results Follow-Up [address] [phone] Sangita Farrar PA 08/23/2024 11:30 AM FIBROUS PLASTERER Office Visit [facility] [address] [place] [phone] Sangita Farrar PA 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) (Primary Dx); Primary osteoarthritis involving multiple joints; Encounter for medication monitoring 08/23/2024 Orders Only [facility] Information Management [address] [place] [phone] Alee Elizondo PA 08/23/[address] [phone] Sangita Farrar PA Orencia Approved 08/21/[address] [phone] Codi Branham 08/02/2024 11:45 AM FIBROUS PLASTERER Office Visit [address] [phone] Magaly Snider NP OWEN on CPAP (Primary Dx); OWEN (obstructive sleep apnea); PLMD (periodic limb movement disorder) 08/02/[address] [place] [phone] Shailesh Dunn MD Orders Only 08/01/2024 Orders Only [facility] [address] [place] [address] [address] [place] [phone] Alee Elizondo PA Pre-diabetes (Primary Dx); Mixed hyperlipidemia; Fatigue, unspecified type 07/30/2024 9:00 AM FIBROUS PLASTERER Office Visit [address] [phone] Sangita Farrar PA 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) (Primary Dx); Primary osteoarthritis involving multiple joints; Encounter for medication monitoring 07/24/2024 2:00 PM FIBROUS PLASTERER Office Visit [facility] [address] [place] [phone] Michael Motta MD Status post total knee replacement using cement, right (Primary Dx) 07/24/2024 1:27 PM FIBROUS PLASTERER - 07/24/2024 11:59 PM FIBROUS PLASTERER Hospital Encounter [facility] Di[facility] [address] [place] [phone] Status post total knee replacement using cement, right Discharge Disposition: Discharge to home or self care 07/24/[address] [place] [phone] Alee Elizondo PA Referral Request (/) 07/12/2024 Telephone [facility] [address] [place] [phone] Michael Motta MD ret call from Last 3 Months Immunizations Immunization Administration Dates Next Due COVID-19 mRNA (Voölks) 0.3 m L (30 mcg) vaccine (12 [...] 0.6 oz pur e alcohol) [facility] Utilities Answer Date Recorded In the past 12 months has [employer] electric, gas, oil, or water company threatened [...] often do you attend chur ch or congregation services? 1 to 4 times per year [...] in the past 12 m [facility], were you homeless or living in a [...] on file Legal Sex Female 8:04 PM FIBROUS PLASTERER Gender Identity Female 02/15/2020 6:08 PM CDT [...] history exists Medical Devices Implanted Type Area Teletray Operator Device Identifier Shelf Expiration Date Model / Serial / Lot [employer] Simplex P Radiopaque Full Dose Cement Bone Sterile 6191-1-010 - [id number] Implanted:Qty: 2 on 05/04/2023 by Michael Motta MD at [facility] Bone Cement Left: Knee [employer] 05/03/2025 6191-1-010 / 6191-1-001 / [id number] [employer] Simplex P Radiopaque Full Dose Cement Bone Sterile 6191-1-010 - [id number] Implanted:Qty: 2 on 05/30/2024 by Michael Motta MD at [facility] Bone Cement Right: Pat[employer] [id number] 05/03/2026 6191-1-010 / / [id number] [employer] Persona 14mm 30+ Mm Knee Tibia Taper Extension Stem [id number] - [id number] - [id number] Implanted:Qty: 1 on 05/04/2023 by Michael Motta MD at [facility] Left: Knee [employer] [id number] 02/15/2033 [id number] / [id number] / [id number] [employer] Persona Cemented Cruciate Retaining Knee Left 7 Narrow Component [id number] - [id number] 1 - [id number] Implanted:Qty: 1 on 05/04/2023 by Michael Motta MD at [facility] Left: Knee [employer] [id number] 10/25/2032 [id number] / [id number]- 01 / [id number] [employer] Baseplate Tibial Knee Cemented Left Fixed Stemmed Persona Size D Tivanium [id number] - [id number] 1 - [id number] Implanted:Qty: 1 on 05/04/2023 by Michael Motta MD at [facility] Left: Knee [employer] [id number] 09/11/2032 [id number] / 55-0234-882- 01 / [id number] [employer] Persona 11mm Knee Left 6-7 C-D Insert Articular Vivacit-E Sterile [id number] - Q45-2152-307-5 1 - [id number] Implanted:Qty: 1 on 05/04/2023 by Michael Motta MD at [facility] Left: Knee [employer] [id number] 12/28/2025 [id number] / [id number]- 11 / [id number] [employer] Persona 32mm Knee Component Patellar All Poly Latex Free 07-9616-441-32 - [id number] Implanted:Qty: 1 on 05/04/2023 by Michael Motta MD at [facility] [employer] 12/19/2027 [id number] / / [id number] [employer] Baseplate Tibial Knee Cemented Right Fixed Stemmed Persona Size C Tivanium [id number] - [id number] Implanted:Qty: 1 on 05/30/2024 by Michael Motta MD at [facility] Right: Knee [employer] [id number] 03/22/2033 [id number] / / [id number] [employer] Persona 29mm Knee Component Patellar All Poly Latex Free [id number] - [id number] Implanted:Qty: 1 on 05/30/2024 by Michael Motta MD at [facility] Right: Knee [employer] [id number] 12/18/2028 [id number] / / [id number] [employer] Persona 13mm Cruciate Retain Knee Right 6-7 Cd Insert Articular Latex Free [id number] - [id number] Implanted:Qty: 1 on 05/30/2024 by Michael Motta MD at [facility] Right: Patella [employer] [id number] 05/04/2025 [id number] / / [id number] [employer] Persona Cruciate Retaining Cemented Knee Right 7 Narrow Component [id number] - [id number] Implanted:Qty: 1 on 05/30/2024 by Michael Motta MD at [facility] Right: Knee [employer] [id number] 12/27/2033 [id number] / / [id number] [employer] Persona 14mm 30+ Mm Knee Tibia Taper Extension Stem [id number] - [id number] Implanted:Qty: 1 on 05/30/2024 by Michael Motta MD at [facility] Right: Knee [employer] [id number] 04/11/2034 [id number] / / [id number] Procedures Procedure Name Priority Date/Time Associated Diagnosis [...] Read Routine (OP Routine) 08/29/2024 12:23 PM FIBROUS PLASTERER COMPREHENSIVE METABOLIC PANEL Routine 08/23/2024 2:11 PM FIBROUS PLASTERER Encounter for medication monitoring CBC WITH AUTO DIFFERENTIAL Routine 08/23/2024 2:11 PM FIBROUS PLASTERER Encounter for medication monitoring SCAN - LABS 08/23/2024 VITAMIN B12 Routine 08/02/2024 7:41 AM FIBROUS PLASTERER Fatigue, unspecified type LIPID PANEL Routine 08/02/2024 7:41 AM FIBROUS PLASTERER Mixed hyperlipidemia HEMOGLOBIN A1C Routine 08/02/2024 7:41 AM FIBROUS PLASTERER Pre-diabetes COMPREHENSIVE METABOLIC PANEL Routine 08/02/2024 7:41 AM FIBROUS PLASTERER Mixed hyperlipidemia CBC WITH AUTO DIFFERENTIAL Routine 08/02/2024 7:41 AM FIBROUS PLASTERER Fatigue, unspecified type TSH Routine 08/02/2024 7:41 AM FIBROUS PLASTERER Fatigue, unspecified type ERYTHROCYTE SEDIMENTATION RATE Routine 07/30/2024 2:36 PM FIBROUS PLASTERER 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) CRP (ACUTE PHASE) Routine 07/30/2024 2:3 6 PM FIBROUS PLASTERER 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) COMPREHENSIVE METABOLIC PANEL Routine 07/30/2024 2:36 PM FIBROUS PLASTERER Encounter for medication monitoring CBC WITH AUTO DIFFERENTIAL Routine 07/30/2024 2:36 PM FIBROUS PLASTERER Encounter for medication monitoring XR KNEE RIGHT 3 VIEWS Schedule Routine, Read Routine (OP Routine) 07/24/2024 1:35 PM FIBROUS PLASTERER Status post total knee replacement using cement, right DEXA AXIAL SKELETON BONE DENSITY 1 OR MORE SITES Schedule Routine, Read Routine (OP Routine) 04/12/2023 8:14 AM CDT COLONOSCOPY Routine 07/27/2021 HEPATITIS C ANTIBODY Routine 06/04/2020 10:29 AM FIBROUS PLASTERER Encounter for screening for other viral diseases [...] POC Presumptive Negative Presumptive Negative, Invalid [facility] [place] Nasal 09/25/2024 11:0 2 AM CDT Jessica Collins NP POINT OF CARE TEST ORDERABLES Final Result Performing Organization Address City/State/[facility] de Phone Number [facility] [address] [place] [address] * XR Knee Right 3 Views (09/13/2024 [...] John Sparrow M.D. RB T: Report ID: [id number] Reading Location: [id number] Procedure Note John Sparrow MD - 09/18/2024 [...] John Sparrow M.D. RB T: Report ID: [id number] Reading Location: [id number] Michael Motta MD IMG XR PROCEDURES Final Re sult * (ABNORMAL) CT Abdomen Pelvis W Contrast (08/29/2024 12:23 PM FIBROUS PLASTERER) Anatomical Region Laterality Modality Body N/A Computed Tomogra phy Historical Provider MD LUNSF[facility] CT PROCEDURES Edited Result - Final * CBC with auto differential (08/23/2024 2:11 PM FIBROUS PLASTERER) WBC 4.8 3.8 - 10.8 Thousand/u L [...] [facility] Blood 08/23/2024 2:11 PM FIBROUS PLASTERER 08/23/2024 2:11 PM FIBROUS PLASTERER Sangita OSMAN LAB BLOOD ORDERABLES Vy l Result [facility] [address] [place] [address] * (ABNORMAL) Comprehensive metabolic panel (08/23/2024 2:11 PM FIBROUS PLASTERER) [facility] Glucose 188(H) 65 - 99 mg/dL [facility] [...] [facility] Blood 08/23/2024 2:11 PM FIBROUS PLASTERER 08/23/2024 2:11 PM FIBROUS PLASTERER Sangita OSMAN LAB BLOOD ORDERABLES Vy l Result [facility] [address] [facility] [place] [address] * SCAN - LABS (08/23/2024) Alee OSMAN Final Resu lt * (ABNORMAL) CBC with auto differential (08/02/2024 7:41 AM FIBROUS PLASTERER) WBC 4.0 3.8 - 10.8 Thousand/u L [...] [facility] Blood 08/02/2024 7:41 AM FIBROUS PLASTERER 08/02/2024 7:42 AM FIBROUS PLASTERER Alee OSMAN LAB BLOOD ORDERABLES Final Result [facility] [address] [address] [address] * TSH (08/02/2024 7:41 AM FIBROUS PLASTERER) Pathologist [facility] TSH 1.57 0.40 - 4.50 mIU/L [facility] Blood 08/02/2024 7:41 AM FIBROUS PLASTERER 08/02/2024 7:42 AM FIBROUS PLASTERER Alee OSMAN LAB BLOOD ORDERABLES Final Result [facility] [address] [place] [address] * Hemoglobin A1c (08/02/2024 7:41 AM FIBROUS PLASTERER) [facility] Hgb A1C 5.4 <5.7 % of total Hgb [facility] Comment: For the purpose of screening for the presence of diabetes: <5.7% Consistent with the absence of diabetes 5.7-6.4% Consistent with increased risk for diabetes (prediabetes) > or =6.5% Consistent with diabetes This assay result is consistent with a decreased risk of diabetes. Currently, no consensus exists regarding use of hemoglobin A1c for diagnosis of diabetes in children. According to [place] Diabetes Association (ADA) guidelines, hemoglobin A1c <7.0% represents optimal control in non- diabetic patients. Different metrics may apply to specific patient populations. Standards of Medical Care in Diabetes(ADA). Blood 08/02/2024 7:41 AM FIBROUS PLASTERER 08/02/2024 7:42 AM FIBROUS PLASTERER Alee OSMAN LAB BLOOD ORDERABLES Final Result Performing Organization Address City/[facility]/ZIP Co de Phone Number [facility] [address] [place] [address] * Vitamin B12 (08/02/2024 7:41 AM FIBROUS PLASTERER) Pathologist [facility] Vitamin B12 349 200 - 1,100 pg/mL [facility] Comment: Please Note: Although the reference range for vitamin B12 is 200-1100 pg/mL, it has been reported that between 5 and 10% of patients with values between 200 and 400 pg/mL may experience neuropsychiatric and hematologic abnormalities due to occult B12 deficiency; less than 1% of patients with values above 400 pg/mL will have symptoms. Blood 08/02/2024 7:41 AM FIBROUS PLASTERER 08/02/2024 7:42 AM FIBROUS PLASTERER Alee OSMAN LAB BLOOD ORDERABLES Final Result Performing Organization Address [facility]/ZIP Co de Phone Number [facility] [address] [address] [address] * Lipid panel (08/02/2024 7:41 AM FIBROUS PLASTERER) Pathologist [facility] Cholesterol 127 <200 mg/dL [facility] [...] LDL-C. Barry SS et al. ELAINE. 2013;310(19): 8536-7559 (http://education.DevonWay/faq/FZB732) Chol/HDL ratio 1.7 <5.0 (calc) [facility] Non-HDL, (LDL+VLDL) 52 <130 mg/dL (calc) [facility] Comment: For patients with diabetes plus 1 major ASCVD risk factor, treating to a non-HDL-C goal of <100 mg/dL (LDL-C of <70 mg/dL) is considered a therapeutic option. Blood 08/02/2024 7:41 AM FIBROUS PLASTERER 08/02/2024 7:42 AM FIBROUS PLASTERER Alee OSMAN LAB BLOOD ORDERABLES Final Result Performing Organization Address City/[facility]/ZIP Co de Phone Number [facility] [address] [address] [place] [address] * Comprehensive metabolic panel (08/02/2024 7:41 AM FIBROUS PLASTERER) Glucose 99 65 - 99 mg/dL [facility] [...] [facility] Blood 08/02/2024 7:41 AM FIBROUS PLASTERER 08/02/2024 7:42 AM FIBROUS PLASTERER Alee OSMAN LAB BLOOD ORDERABLES Final Result [place] [facility] [address] [place] [address] * CBC with auto differential (07/30/2024 2:36 PM FIBROUS PLASTERER) WBC 6.4 3.8 - 10.8 Thousand/u L [...] [facility] Blood 07/30/2024 2:36 PM FIBROUS PLASTERER 07/30/2024 2:36 PM FIBROUS PLASTERER Sangita OSMAN LAB BLOOD ORDERABLES Vy l Result Performing Organization Address [facility] Co de Phone Number [facility] [address] [place] [address] * Erythrocyte sedimentation rate (07/30/2024 2:36 PM FIBROUS PLASTERER) [facility] Erythrocyte sedimentation rate 11 < OR = 30 mm/h [facility] Blood 07/30/2024 2:36 PM FIBROUS PLASTERER 07/30/2024 2:36 PM FIBROUS PLASTERER Sanigta OSMAN LAB BLOOD ORDERABLES Vy l Result Performing Organization Address [facility] Co de Phone Number [facility] [address] [place] [address] * CRP (acute phase) (07/30/2024 2:36 PM FIBROUS PLASTERER) [facility] C-RP <3.0 <8.0 mg/L [facility] Blood 07/30/2024 2:36 PM FIBROUS PLASTERER 07/30/2024 2:36 PM FIBROUS PLASTERER Sangita OSMAN LAB BLOOD ORDERABLES Vy l Result Performing Organization Address [facility] de Phone Number [facility] [address] [place] [address] * (ABNORMAL) Comprehensive metabolic panel (07/30/2024 2:36 PM FIBROUS PLASTERER) Pathologist [facility] Glucose 115(H) 65 - 99 mg/dL [facility] [...] [facility] Blood 07/30/2024 2:36 PM FIBROUS PLASTERER 07/30/2024 2:36 PM FIBROUS PLASTERER us Sangita OSMAN LAB BLOOD ORDERABLES Vy l Result [facility] [address] [place] [address] * XR Knee Right 3 Views (07/24/2024 1:35 PM FIBROUS PLASTERER) Anatomical Region Laterality Modality Lower Extremities, Knee Right Computed Radiography 07/25/2024 7:16 AM FIBROUS PLASTERER Narrative 07/25/2024 7:18 AM FIBROUS PLASTERER EXAM DESCRIPTION: XR KNEE RIGHT 3 VIEWS [...] signed by Elton CABA T: Report ID: [id number] Reading Location: [id number] Procedure Note Elton Jonas MD - 07/25/2024 [...] signed by Elton CABA T: Report ID: [id number] Reading Location: [place] [address] Michael Motta MD IMG XR PROCEDURES Final [...] * Hepatitis C antibody (06/04/2020 10:29 AM FIBROUS PLASTERER) Hep C Ab NON-REACTI VE NON-REACT ALEXYS [facility] SIGNAL TO CUT-OFF 0.02 <1.00 [facility] Comment: HCV antibody was non-reactive. There is no laboratory evidence of HCV infection. In most cases, no further action is required. However, if recent HCV exposure is suspected, a test for HCV RNA (test code 49465) is suggested. For additional information please refer to http://education.[employer]/faq/PKN01z6 (This link is being provided for informational/ educational purposes only.) Blood specimen (specimen) 06/04/2020 10:29 AM FIBROUS PLASTERER 06/04/2020 10:30 AM FIBROUS PLASTERER Sangita OSMAN LAB MICROBIOLOGY - GENERA L ORDERABLES Final Result [facility] [address] [place] [address] from Last 3 Months or Most Recently Relevant to Health Maintenance Insurance [facility] MEDICARE ADVANTAGE Advance Directives For more information, please contact: [phone] Documents on File Type Date Recorded Patient Social Media Marketing Manager Expl anation ADVANCE DIRECTIVE 05/17/2024 2:13 PM Yonis r of [facility] * Full Code (Latest Code Status on File) Date Activated Date Inactivated Comments 05/30/2024 12:38 PM 06/05/2024 6:31 PM * Full Code Date Activated Date Inactivated Comments 05/04/2023 2:33 PM 05/07/2023 3:07 AM * Full Code Date Activated Date Inactivated Comments 03/22/2021 4:39 PM 03/25/2021 6:17 PM Care Teams Financial Accounting Manager Relationship Specialty Start Date End Date Alee Elizondo PA [address] [place] [address] PCP - General Internal Medicine 07/05/23 Sharan Linton MD Referring Physician Gastroenterology 10/31/18 Martha Starks MD Consulting Physician Cardiology 12/24/20 Shama Hines MD [address] [facility], [address] [address] Consulting Physician Pain Management 01/19/21 Artis Grewal MD [address] [place] [address] Consulting Physician Rheumatology 01/30/21 Amy Mayes NP [address] [facility] [address] [address] Nurse Practitioner Cardiovascular Disease 04/20/24 Shailesh Dunn MD [address] [address] Consulting Physician Pulmonary Disease 04/20/24 Sangita Farrar PA [address] [place] [address] Physician Ancillary Services Manager Rheumatology 05/15/24
--- OUTSIDE RECORDS SUMMARY | 2024-10-07 12:16 | XMS_ITS | Encounter Summary ---
Author Organization [facility] Healthcare Address [address] [place] [address] Care Team Providers Care Global Position System Technician Name Role Phone Sharan Linton MD Unavailable [phone] Martha Starks MD Unavailable [phone] Shama Hines MD Unavailable Artis Grewal MD Unavailable [phone] Alee Elizondo Primary Care Provider [phone] Amy Mayes NP Unavailable [phone] Shailesh Dunn MD Unavailable [phone] Sangita Farrar Unavailable [phone] Encounter Details Date Type Department Care Team (Late st Contact Info) Description 10/04/2024 Results Follow-Up [facility] Medical Group Family Medicine [address] [place] [address] Alee Elizondo PA [address] [place] [address] Social History Tobacco Use Types Packs/Day Years Used Date Smoking Tobacco: Never Smokeless Tobacco: Never Comments:Never used Alcohol Use Standard Drinks/Week Comments No 0 (1 standard drink = 0.6 oz pur e alcohol) [facility] Utilities Answer Date Recorded In the past 12 months has MM[employer], oil, or water [employer] threatened to shut off services in your [...] often do you attend chur ch or moravian services? 1 to 4 times per year 05/30/2024 Do you belong to any clubs o r organizations such as nondenominational groups, unions, fraternal or athletic groups, or [...] on file Legal Sex Female 8:04 PM AUTHORS MOTIVATIONAL Gender Identity Female 02/15/2020 6:08 PM CDT [...] on filedocumented in this encounter Care Teams Global Position System Technician Relationship Specialty Start Date End Date Alee Elizondo PA [address] [facility] [address] [place] [address] PCP - General Internal Medicine 07/05/23 Sharan Linton MD Referring Physician Gastroenterology 10/31/18 Martha Starks MD Consulting Physician Cardiology 12/24/20 Shama Hines MD [address] [facility] [address] Consulting Physician Pain Management 01/19/21 Artis Grewal MD [address] [place] [address] Consulting Physician Rheumatology 01/30/21 Amy Mayes NP [address] [facility] [address] [place] [address] Nurse Practitioner Cardiovascular Disease 04/20/24 Shailesh Dunn MD [address] [address] Consulting Physician Pulmonary Disease 04/20/24 Sangita Farrar PA [address] [place] [address] Physician Space And Missile Operations Rheumatology 05/15/24 documented as of this encounter
--- OUTSIDE RECORDS SUMMARY | 2024-10-07 12:16 | XMS_ITS | Encounter Summary ---
Author Organization [facility] Facility Care Team Providers Care Roller Name Role Phone Alee Elizondo Primary Care Provider + [phone] Sharan Linton MD Unavailable [phone] Taisha Gomez MD Unavailable [phone] Parag Soto MD Unavailable [phone] RaziaMartha singh MD Unavailable [phone] Puneet Uribe MD Unavailable [phone] Shama Hines MD Unavailable Artis Grewal MD Unavailable [phone] Harrison Pena RN Unavailable [phone] Nafisa Gregg RN Unavailable [phone] Tho Kelsey MD Primary Care Provider [phone] Alee Elizondo Primary Care Provider + [phone] Amy Mayes NP Unavailable [phone] Shailesh Dunn MD Unavailable [phone] Sangita Farrar Unavailable [phone] Encounter Details Date Type Department Care Team (Latest Contact Info) Description 08/10/2017 Orders Only [facility] CLINCONV Provider, MD Tania [address] [place] [address] Social History Tobacco Use Types Packs/Day Years Used Date Smoking Tobacco: Never Smokeless Tobacco: Never Alcohol Use Standard Drinks/Week Comments No 0 (1 standard drink = 0.6 oz pur e alcohol) Comments Unknown Sex and Gender Information Value Date Recorded Sex Assigned at Not on file Legal Sex Female 8:04 PM PUBLIC WORKS INSPECTOR Gender Identity Female 02/15/2020 6:08 PM CDT Sexual Orientation Not on file documented as of this encounter Plan of Treatment Not on file documented as of this encounter Procedures Procedure Name Priority Date/Time Associated Diagnosis Comments CARDIOLOGY REPORT 08/10/2017 12: 00 AM PUBLIC WORKS INSPECTOR documented in this encounter Results * CARDIOLOGY REPORT (08/10/2017 12:00 AM PUBLIC WORKS INSPECTOR) Anatomical Region Laterality Modality Other Narrative 08/10/2017 12:00 AM PUBLIC WORKS INSPECTOR Ordered by an unspecified provider. Historical Provider [facility] LEANDRA LANDRUM Final Result documented in this encounter Visit Diagnoses Not on filedocumented in this encounter Additional Health Concerns Infection Onset Date Last Indicated Resolved Time COVID: Suspected 08/13/2021 08/14/2021 08/14/2021 3:06 AM PUBLIC WORKS INSPECTOR COVID: Suspected 08/14/2021 08/14/2021 08/15/2021 3:05 AM PUBLIC WORKS INSPECTOR COVID: Suspected 08/14/2021 08/14/2021 08/15/2021 6:25 AM PUBLIC WORKS INSPECTOR COVID: Suspected 06/02/2023 06/02/2023 06/02/2023 7:25 PM PUBLIC WORKS INSPECTOR COVID: Suspected 07/26/2023 07/26/2023 07/26/2023 3:10 PM PUBLIC WORKS INSPECTOR COVID: Suspected 09/25/2024 09/25/2024 09/25/2024 11:03 AM CDT Influenza, adult 09/25/2024 09/25/2024 10/02/2024 3:05 AM CDT documented as of this encounter Care Teams Roller Relationship Specialty Start Date End Date Alee Elizondo PA [address] [facility] [address] [place] [address] PCP - General Internal Medicine 02/01/17 06/29/23 Tho Kelsey MD [address] [place] [address] [address] [facility] [address] [place] [address] PCP - General Family Medicine 06/30/23 07/04/23 Alee Elizondo PA [address] [place] [address] PCP - General Internal Medicine 07/05/23 Sharan Linton MD [address] [place], [place] [id number] Referring Physician Gastroenterology 10/31/18 Taisha Gomez MD [address] [facility] [address] [place], [place] [id number] Referring Physician Pulmonary Disease 10/31/18 12/23/20 Parag Soto MD [address] [facility] [address] [place] [address] Referring Physician Rheumatology 10/31/18 12/23/20 Martha Starks MD [address] [place] [address] Consulting Physician Cardiology 12/24/20 Puneet Uribe MD [address] [facility] [address] [place] [address] Consulting Physician Rheumatology 12/24/20 01/29/21 Shama Hines MD [address]00 [facility], [facility] [address] [place] [address] Consulting Physician Pain Management 01/19/21 Artis Grewal MD [address] [place] [address] Consulting Physician Rheumatology 01/30/21 Harrison Pena, JULIUS [address] [place] [address] Fishing Tool Technician Oil Well 05/30/23 09/04/23 Nafisa Gregg, JULIUS [address] [place] [address] [facility] [address] [place], [place] [address] Fishing Tool Technician Oil Well 06/06/23 06/12/23 Amy Mayes NP [address] [facility] [address] [place], [place] [address] Nurse Practitioner Cardiovascular Disease 04/20/24 Shailesh Dunn MD [address] [facility] [address] [place] [address] Consulting Physician Pulmonary Disease 04/20/24 Sangita Farrar PA [address] [place] [address] Physician Dj Instructor Rheumatology 05/15/24 documented as of this encounter
--- OUTSIDE RECORDS SUMMARY | 2024-10-07 12:16 | XMS_ITS | Encounter Summary ---
Author Organization [facility] Facility Care Team Providers Care Structural Biologist Name Role Phone Alee Elizondo Primary Care Provider + [phone] Sharan Linton MD Unavailable [phone] Taisha Gomez MD Unavailable [phone] Parag Soto MD Unavailable [phone] [facility] Unavailable [phone] Puneet Uribe MD Unavailable [phone] Shama Hines MD Unavailable Artis Grewal MD Unavailable [phone] Harrison Pena RN Unavailable +[phone] Nafisa Gregg RN Unavailable [phone] Tho Kelsey MD Primary Care Provider [phone] Alee Elizondo Primary Care Provider + [phone] Amy Mayes NP Unavailable [phone] Shailesh Dunn MD Unavailable [phone] Sangita Farrar Unavailable [phone] Encounter Details Date Type Department Care Team (Latest Contact Info) Description 09/14/2016 Orders Only [facility]IN[facility] Provider, MD Tania [address] [place] [address] Social History Tobacco Use Types Packs/Day Years Used Date Smoking Tobacco: Never Alcohol Use Standard Drinks/Week Comments No 0 (1 standard drink = 0.6 oz pur e alcohol) Comments Unknown Sex and Gender Information Value Date Recorded Sex Assigned at Not on file Legal Sex Female 8:04 PM DATA PROCESSING AUDITOR Gender Identity Female 02/15/2020 6:08 PM CDT Sexual Orientation Not on file documented as of this encounter Plan of Treatment Not on file documented as of this encounter Procedures Procedure Name Priority Date/Time Associated Diagnosis Comments PROCEDURE - RESULT 09/09/2016 12 :00 AM DATA PROCESSING AUDITOR documented in this encounter Results * PROCEDURE - RESULT (09/09/2016 12:00 AM DATA PROCESSING AUDITOR) Narrative 09/09/2016 12:00 AM DATA PROCESSING AUDITOR Ordered by an unspecified provider. Historical Provider MD Final Res ult documented in this encounter Visit Diagnoses Not on filedocumented in this encounter Additional Health Concerns Infection Onset Date Last Indicated Resolved Time COVID: Suspected 08/13/2021 08/14/2021 08/14/2021 3:06 AM DATA PROCESSING AUDITOR COVID: Suspected 08/14/2021 08/14/2021 08/15/2021 3:05 AM DATA PROCESSING AUDITOR COVID: Suspected 08/14/2021 08/14/2021 08/15/2021 6:25 AM DATA PROCESSING AUDITOR COVID: Suspected 06/02/2023 06/02/2023 06/02/2023 7:25 PM DATA PROCESSING AUDITOR COVID: Suspected 07/26/2023 07/26/2023 07/26/2023 3:10 PM DATA PROCESSING AUDITOR COVID: Suspected 09/25/2024 09/25/2024 09/25/2024 11:03 AM CDT Influenza, adult 09/25/2024 09/25/2024 10/02/2024 3:05 AM CDT documented as of this encounter Care Teams Structural Biologist Relationship Specialty Start Date End Date Alee Elizondo PA [address] [facility] [address] [place] [address] PCP - General Internal Medicine 02/01/17 06/29/23 Tho Kelsey MD [address] [place] [address] [address] [place] [address] PCP - General Family Medicine 06/30/23 07/04/23 Alee Elizondo PA [address] [place] [address] PCP - General Internal Medicine 07/05/23 Sharan Linton MD [address] [place] [address] Referring Physician Gastroenterology 10/31/18 Taisha Gomez MD [address] [place] [address] Referring Physician Pulmonary Disease 10/31/18 12/23/20 Parag Soto MD [address] [place] [address] Referring Physician Rheumatology 10/31/18 12/23/20 Martha Starks MD [address] [place] [address] Consulting Physician Cardiology 12/24/20 Puneet Uribe MD [address] [facility] [address] [place] [address] Consulting Physician Rheumatology 12/24/20 01/29/21 Shama Hines MD [address] [facility], [address] [place] [address] Consulting Physician Pain Management 01/19/21 Artis Grewal MD [address] [place] [address] Consulting Physician Rheumatology 01/30/21 Harrison Pena, JULIUS [address] [place] [address] Brush Maker 05/30/23 09/04/23 Nafisa Gregg, JULIUS [address] [place] [address] [facility] [address] [place] [address] Brush Maker 06/06/23 06/12/23 Amy Mayes NP [address] [facility] [address] [place] [address] Nurse Practitioner Cardiovascular Disease 04/20/24 Shailesh Dunn MD [address] [facility] [address] [place] [address] Consulting Physician Pulmonary Disease 04/20/24 Sangita Farrar PA [address] [place] [address] Physician Hazmat Cdl A Driver Rheumatology 05/15/24 documented as of this encounter
--- OUTSIDE RECORDS SUMMARY | 2024-10-07 12:17 | XMS_ITS | Encounter Summary ---
Author Organization [facility] Healthcare Address [address] [place] [address] Care Team Providers Care Patient Financial Representative Name Role Phone Sharan Linton MD Unavailable [phone] Martha Starks MD Unavailable [phone] Shama Hines MD Unavailable Artis Grewal MD Unavailable [phone] Alee Elizondo Primary Care Provider [phone] Amy Mayes NP Unavailable [phone] Shailesh Dunn MD Unavailable [phone] Sangita Farrar Unavailable [phone] Encounter Details Date Type Department Care Team (Late st Contact Info) Description 03/02/2024 Telephone [facility] Family Medicine [address] [place] [address] Alee Elizondo PA [address] [facility] [address] [place] [address] Social History Tobacco Use Types Packs/Day Years Used Date Smoking Tobacco: Never Smokeless Tobacco: Never Comments:Never used Alcohol Use Standard Drinks/Week Comments No 0 (1 standard drink = 0.6 oz pur e alcohol) [facility] Utilities Answer Date Recorded In the past 12 months has [facility], gas, oil, or water company threatened to [...] often do you attend chur ch or taoist services? 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 Gender Identity Female 02/15/2020 6:08 PM CDT [...] documented as of this encounter Care Teams Patient Financial Representative Relationship Specialty Start Date End Date Alee Elizondo PA [address] [facility] [address] [place] [address] PCP - General Internal Medicine 07/05/23 Sharan Linton MD Referring Physician Gastroenterology 10/31/18 Martha Starks MD Consulting Physician Cardiology 12/24/20 Shama Hines MD [address] [address] Consulting Physician Pain Management 01/19/21 Artis Grewal MD [address] [place] [address] Consulting Physician Rheumatology 01/30/21 Amy Mayes NP [address] [address] Nurse Practitioner Cardiovascular Disease 04/20/24 Shailesh Dnun MD [address] [address] Consulting Physician Pulmonary Disease 04/20/24 Sangita Farrar PA [address] [place] [address] Physician Visual C Developer Rheumatology 05/15/24 documented as of this encounter
--- OUTSIDE RECORDS SUMMARY | 2024-10-07 12:17 | XMS_ITS | Encounter Summary ---
Author Organization [facility] Healthcare Address [address] [place] [address] Care Team Providers Care Miller Head Wet Process Name Role Phone Sharan Linton MD Unavailable [phone] Martha Starks MD Unavailable [phone] Shama Hines MD Unavailable Artis Grewal MD Unavailable [phone] Alee Elizondo Primary Care Provider [phone] Amy Mayes NP Unavailable [phone] Shailesh Dunn MD Unavailable [phone] Sangita Farrar Unavailable [phone] Encounter Details Date Type Department Care Team (Late st Contact Info) Description 12/08/2023 Orders Only [facility] Health Information Management [address] [place] [address] Scanning, Provider Social History Tobacco Use Types [...] any clubs o r organizations such as yazidism groups, unions, fraternal or athletic groups, or [...] on file 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 Gender Identity Female 02/15/2020 6:08 PM CDT [...] documented as of this encounter Care Teams Miller Head Wet Process Relationship Specialty Start Date End Date Alee Elizondo PA [address] [address] PCP - General Internal Medicine 07/05/23 Sharan Linton MD Referring Physician Gastroenterology 10/31/18 Martha Starks MD Consulting Physician Cardiology 12/24/20 Shama Hines MD 4700 [facility], [address] [address] Consulting Physician Pain Management 01/19/21 Artis Grewal MD [address] [place] [address] Consulting Physician Rheumatology 01/30/21 Amy Mayes NP [address] [address] Nurse Practitioner Cardiovascular Disease 04/20/24 Shailesh Dunn MD [address] [address] Consulting Physician Pulmonary Disease 04/20/24 Sangita Farrar PA [address] [place] [address] Physician Plant Control Aide Rheumatology 05/15/24 documented as of this encounter
[2024-10-07 13:20] LABS: Add Urine Microscopic? YES; Appearance Urine Clear (Clear); Bacteria Urine 4+ /hpf; Bilirubin Urine Negative (Negative); Blood Urine 2+ (Negative); Color Urine Yellow (Yellow); Glucose Urine UA Negative (Negative); Ketones Urine Negative (Negative); Leukocyte Esterase Ur 3+ LEU/UL (Negative); Nitrate Urine Positive (Negative); Non Pathogenic Casts 0-2; Protein Urine Negative (Negative); RBC Urine 0-2 /hpf (0-2); Specific Grav Ur 1.004 (1.001-1.035); Squamous Epithelial Cell Urine None Seen /hpf (Few); Urobilinogen Urine 0.2 mg/dL (<2.0); WBC Urine 21-50 /hpf (0-3)
[2024-10-07 13:39] VITALS: BP 112/55; PULSE 76; RESP 16; O2SAT 94
--- NOTE | 2024-10-07 14:11 | ED.GENADULT ---
HPI - General Adult General Chief complaint: Urogenital-Female Stated complaint: urinary retention Time Seen by Provider: 10/07/24 12:00 History of Present Illness HPI narrative: Patient is a 69-year-old female who presents ER with bladder cramping. Lyles catheter placed today for urinary retention. She is having some spasms the bladder at home and will then released urine from around the catheter. No fevers or chills. Urine is clear and nonbloody. Related Data Home Medications ?Medication ?Instructions ?Recorded ?Confirmed ?Last Taken ?Type aspirin 81 mg tablet,delayed 81 mg PO DAILY 06/20/19 02/29/24 12/11/23 History release (Adult Low Dose Aspirin) bupropion HCl 150 mg 24 hr tablet, 150 mg PO QAM 06/20/19 02/29/24 12/14/23 History extended release hydroxychloroquine 200 mg tablet 200 mg PO BID 06/20/19 02/29/24 12/13/23 20:00 History montelukast 10 mg tablet 10 mg PO QHS 06/20/19 02/29/24 12/08/23 History potassium chloride 10 mEq 10 meq PO DAILY 06/20/19 02/29/24 12/13/23 History tablet,extended release pravastatin 40 mg tablet 40 mg PO DAILY 06/20/19 02/29/24 12/13/23 20:00 History folic acid 1 mg tablet 2 mg PO DAILY 06/21/19 02/29/24 12/13/23 History duloxetine 60 mg capsule,delayed 60 mg PO DAILY 08/20/19 02/29/24 12/14/23 History release calcium carb-ergocalciferol (vit 1 tablet PO BID 03/08/21 02/29/24 12/08/23 History D2) 600 mg calcium-200 unit tablet cholecalciferol (vitamin D3) 125 125 mcg PO DAILY 03/08/21 02/29/24 12/08/23 History mcg (5,000 unit) tablet (Vitamin D3) cyclobenzaprine 5 mg tablet 5 mg PO TID PRN Muscle spasms 03/08/21 02/29/24 12/08/23 History docusate sodium 100 mg capsule 200 mg PO BID 03/08/21 02/29/24 12/08/23 History (Colace) ropinirole 0.5 mg tablet 1 mg PO HS 07/14/21 02/29/24 12/13/23 20:00 History abatacept 125 mg/mL subcutaneous 125 mg subcut WEEKLY 07/22/23 02/29/24 Unknown History syringe (Orencia) bumetanide 1 mg tablet 1 mg PO BID 07/22/23 02/29/24 12/13/23 History clobetasol 0.05 % lotion (Clobex) 1 applic topical BID PRN Itching 07/22/23 02/29/24 12/03/23 History gabapentin 100 mg capsule 200 mg PO BID 07/22/23 02/29/24 12/13/23 20:00 History tramadol 50 mg tablet 50 mg PO Q6H PRN Pain 07/22/23 02/29/24 12/08/23 History methotrexate sodium 2.5 mg tablet 17.5 mg PO WEEKLY 12/05/23 02/29/24 12/07/23 History cetirizine 10 mg capsule (Zyrtec) 10 mg PO DAILY PRN 09/18/24 Unknown History oxycodone-acetaminophen 5 mg-325 1 tablet PO Q6H PRN 09/18/24 Unknown History mg tablet rosuvastatin 10 mg tablet 10 mg PO 09/18/24 Unknown History Allergies Allergy/AdvReac Type Severity Reaction Status Date / Time meperidine Allergy Severe HIVES Verified 09/18/24 09:23 Penicillins Allergy Severe RASH Verified 09/18/24 09:23 hydrocodone Allergy Intermediate HIVES Verified 09/18/24 09:23 Review of Systems Review of Systems: All systems reviewed & are unremarkable except as noted in HPI and below Constitutional: Constitutional: Reports no additional constitutional complaints Gastrointestinal: Gastrointestinal: Reports no additional gastrointestinal complaints Genitourinary: Genitourinary: Reports no additional female genitourinary complaints [facility] Past Medical History Medical History Obese Arthritis OWEN (obstructive sleep apnea) GERD (gastroesophageal reflux disease) Kidney stones Depression Angina of effort Asthma Hyperlipidemia CAD (coronary atherosclerotic disease) H/O: HTN (hypertension) Moderate persistent asthma without complication Obstructive sleep apnea (adult) (pediatric) Rhinitis Surgical History Surgical History H/O dilation and curettage History of lithotripsy History of hysterectomy History of repair of hiatal hernia Laparoscopic repair hiatal hernia, laparoscopic Leonor fundoplication 12/14/23 History of left knee replacement History of cholecystectomy S/P appy Family History Family History Mother Chronic HF (heart failure) Family history of diabetes mellitus in first degree relative Cerebrovascular accident Father Family history of malignant neoplasm of kidney Family history of liver disease Carcinoma of colon Atrial fibrillation Other Acute myocardial infarction Asthma Diabetes mellitus Family history of arthritis Family history of cardiovascular disease Family history of chronic obstructive pulmonary disease Family history of congestive heart failure Hypertension Malignant neoplasm of prostate Social History Social History Smoking status: Never smoker Alcohol intake: never Substance use: never Substance use type: does not use Do You Feel Safe in your Home?: Yes Lack of Transportation: No Lack of Food: Never True Current Housing: I Have Housing Concerned About Future Housing: No Difficulty Paying Gas/Electric Bills: No Difficulty Paying for Meds: No Currently Unemployed: No Education: High School Diploma/GED Difficulty w/ Childcare or Family Care: No Living arrangements: alone Spiritual care concerns: No Exam Narrative: GENERAL: Well-appearing, well-nourished, and in no acute distress. HEAD: Normocephalic, atraumatic. CHEST: Clear to auscultation. No respiratory distress. HEART: Regular rate and rhythm. No murmur heard. Normal peripheral pulses. ABDOMEN: Soft, nontender, nondistended. SKIN: Warm, dry, no rash. NEURO: Alert and oriented x3. PSYCH: Normal mood and affect. Course Course Emergency Course: Patient resting comfortably. Informed of results. Discharge home with oral antibiotic. Follow up with Urology. Vital Signs Vital signs: Vital Signs Temperature 97.6 F 10/07/24 11:44 Pulse Rate 92 10/07/24 11:44 Respiratory Rate 17 10/07/24 11:44 Blood Pressure 138/50 L 10/07/24 11:44 Pulse Oximetry 97 10/07/24 11:44 Oxygen Delivery Room Air 10/07/24 11:44 Temperature 97.6 F 10/07/24 11:44 Pulse Rate 76 10/07/24 13:39 Respiratory Rate 16 10/07/24 13:39 Blood Pressure 112/55 L 10/07/24 13:39 Pulse Oximetry 94 10/07/24 13:39 Oxygen Delivery Room Air 10/07/24 11:44 Medical Decision Making Vital Signs Vital Signs: Vital Signs Temperature 97.6 F 10/07/24 11:44 Pulse Rate 92 10/07/24 11:44 Respiratory Rate 17 10/07/24 11:44 Blood Pressure 138/50 L 10/07/24 11:44 Pulse Oximetry 97 10/07/24 11:44 Oxygen Delivery Room Air 10/07/24 11:44 Temperature 97.6 F 10/07/24 11:44 Pulse Rate 76 10/07/24 13:39 Respiratory Rate 16 10/07/24 13:39 Blood Pressure 112/55 L 10/07/24 13:39 Pulse Oximetry 94 10/07/24 13:39 Oxygen Delivery Room Air 10/07/24 11:44 Lab Data Labs: Lab Results 10/07/24 Range/Units 13:12 Urine Color Yellow (Yellow) Urine Appearance Clear (Clear) Urine pH 8.0 (5.0-9.0) Ur Specific [place] 1.004 (1.001-1.035) Urine Protein Negative (Negative) mg/dL Urine Glucose (UA) Negative (Negative) mg/dL Urine Ketones Negative (Negative) mg/dL Ur Blood (Man) 2+ H (Negative) Urine Nitrate Positive H (Negative) Urine Bilirubin Negative (Negative) Urine Urobilinogen 0.2 (<2.0) mg/dL Leukocyte Esterase Rfl 3+ H (Negative) JACQUELYN/UL Urine RBC 0-2 (0-2) /hpf Urine WBC 21-50 H (0-3) /hpf Ur Squamous Epith Cells None seen (Few) /hpf Urine Bacteria 4+ H /hpf Urine Casts 0-2 Discharge Plan Discharge Clinical Impression: Acute UTI Patient Disposition: Home, Self-Care Condition: Stable Instructions: Antibiotic Form, Urinary Tract Infection in Women (ED) Additional Instructions: You should return to the emergency department if you develop severe nausea and vomiting and are unable to keep liquids down, if you develop severe back/flank or stomach pain, or if your symptoms are not clearly improving at home. Patient Language: Bolivian Prescriptions: New cefuroxime axetil 500 mg tablet 500 mg PO BID Qty: 10 0RF cefuroxime axetil 500 mg tablet 500 mg PO BID Qty: 14 0RF No Action duloxetine 60 mg capsule,delayed release(DR/EC) 60 mg PO DAILY pravastatin 40 mg tablet 40 mg PO DAILY potassium chloride 10 mEq tablet extended release 10 meq PO DAILY montelukast 10 mg tablet 10 mg PO QHS hydroxychloroquine 200 mg tablet 200 mg PO BID bupropion HCl 150 mg tablet extended release 24 hr 150 mg PO QAM aspirin [Adult Low Dose Aspirin] 81 mg tablet,delayed release (DR/EC) 81 mg PO DAILY folic acid 1 mg tablet 2 mg PO DAILY nystatin 100,000 unit/gram powder 1 applic topical BID Qty: 60 0RF Zyrtec 10 mg capsule 10 mg PO DAILY PRN oxycodone-acetaminophen 5-325 mg tablet 1 tablet PO Q6H PRN rosuvastatin 10 mg tablet 10 mg PO lidocaine 5 % adhesive patch,medicated 1 patch topical DAILY Qty: 15 0RF Rx Instructions: leave on most painful area for up to 12 hrs. do not use more than 1 patch in a 24-hour period. docusate sodium [Colace] 100 mg Capsule 200 mg PO BID calcium carbonate-vitamin D2 600 mg calcium- 200 unit Tablet 1 tablet PO BID cyclobenzaprine 5 mg Tablet 5 mg PO TID PRN (Reason: Muscle spasms) cholecalciferol (vitamin D3) [Vitamin D3] 125 mcg (5,000 unit) Tablet 125 mcg PO DAILY ropinirole 0.5 mg Tablet 1 mg PO HS bumetanide 1 mg tablet 1 mg PO BID gabapentin 100 mg capsule 200 mg PO BID Patient Comments: TAKES 400MG AT HS clobetasol [Clobex] 0.05 % Lotion 1 applic TOPICAL BID PRN (Reason: Itching) Rx Instructions: apply to scalp tramadol 50 mg tablet 50 mg PO Q6H PRN (Reason: Pain) Orencia 125 mg/mL Syringe 125 mg SUBCUT WEEKLY Patient Comments: Tuesday' methotrexate sodium 2.5 mg tablet 17.5 mg PO WEEKLY Patient Comments: TAKES ON WEDNESDAYS Linzess 290 mcg capsule See Rx Instructions .ROUTE .COMPLEX Qty: 30 11RF Dose Instruction: TAKE 1 CAPSULE BY MOUTH EVERY DAY Rx Instructions: TAKE 1 CAPSULE BY MOUTH EVERY DAY fluconazole 150 mg tablet 150 mg PO Q72H Qty: 2 0RF Rx Instructions: as a single dose Follow-up/Referrals: Mikhail,JACQUI Vickers [Primary Care Provider] - 1 Week
== END 2024-10-07 14:48 | disposition home or self-care (01) ==
PROVIDERS: Emergency Provider Emergency Medicine; PCP Physician Assistant
DX: N39.0 Urinary tract infection, site not specified (principal); Z79.82 Long term (current) use of aspirin; G47.33 Obstructive sleep apnea (adult) (pediatric); K21.9 Gastro-esophageal reflux disease without esophagitis; E78.5 Hyperlipidemia, unspecified; J45.909 Unspecified asthma, uncomplicated; I25.10 Atherosclerotic heart disease of native coronary artery without angina pectoris; I10 Essential (primary) hypertension; E66.9 Obesity, unspecified; Z68.35 Body mass index [BMI] 35.0-35.9, adult
CPT/HCPCS: 81001; 87086; 87186; 99283

== ENCOUNTER 2024-10-13 14:59 | Emergency (ER) | payer MEDICARE, SELFPAY ==
--- NOTE | ~2024-10-13 | CT_ITS ---
CT abdomen pelvis wo con Ordering provider: Elizabeth Palomo PA-C History: 69 years Female with . lower abd/L flank pain, UTI . Comparison: October 02, 2024 Technique: CT abdomen and pelvis without IV and without oral contrast. Automated exposure control and iterative reconstruction technique were employed. The dose-length product was 590.15 mGy-cm. Findings: VISUALIZED LOWER CHEST: Normal. UPPER ABDOMINAL ORGANS: Liver: Normal. Hemangioma is seen unchanged from previous examination. Gallbladder: Status post cholecystectomy. Spleen: Normal. Stomach/duodenum: Normal. Pancreas: Atrophic changes in the area of the head of the pancreas. Adrenals: Normal. Kidneys: Calcifications in the left kidney lower pole suggestive of stone with parenchymal calcificat ion. Tiny stone in the right kidney lower pole Slightly hypodense area seen in the right kidney lower pole most likely a cyst follow-up advised. PELVIC ORGANS: The bladder is underfilled with Lyles's catheter Pelvic lipomatosis is seen. BOWEL AND MESENTERY: Colon: no evidence of diverticulitis. Fecal material is loaded in the colon.. Appendix is not demonst rated. Small Bowel: Normal. No obstruction. Peritoneum/mesentery: No free air or free fluid. No mesenteric lymphadenopathy. RETROPERITONEUM: Normal aorta. No retroperitoneal lymphadenopathy. MUSCULOSKELETAL: Superficial soft tissues: Fat containing umbilical hernia is noted. Otherwise, The superficial soft t issues are normal. Bones: Age appropriate degenerative changes of the spine. IMPRESSION: 1. No evidence of appendicitis, diverticulitis or intestinal torsion. 2. Bilateral tiny kidney stones. Left kidney parenchymal calcification is also possible. 3. Pelvic lipomatosis. 4. Constipation. Reviewed, dictated and finalized at location A.
[2024-10-13 15:02] VITALS: BP 144/65; PULSE 102; RESP 14; TEMP 36.6; O2SAT 98
--- OUTSIDE RECORDS SUMMARY | 2024-10-13 15:02 | XMS_ITS | Encounter Summary ---
Author Organization [facility] Facility Care Team Providers Care Bell Person Name Role Phone Alee Elizondo Primary Care Provider + [phone] Sharan Linton MD Unavailable [phone] Taisha Gomez MD Unavailable [phone] Parag Soto MD Unavailable [phone] RaziaMartha singh MD Unavailable [phone] Puneet Uribe MD Unavailable [phone] Shama Hines MD Unavailable Artis Grewal MD Unavailable [phone] Harrison Pena RN Unavailable [phone] Nafisa Gregg RN Unavailable Tho Kelsey MD Primary Care Provider [phone] Alee Elizondo Primary Care Provider + [phone] Amy Mayes NP Unavailable [phone] Shailesh Dunn MD Unavailable [phone] Sangita Farrar Unavailable [phone] Encounter Details Date Type Department Care Team (Latest Contact Info) Description 03/24/2016 Orders Only [facility] CLINCONV Provider, MD Tania [address] [place] [address] Social History Tobacco Use Types Packs/Day Years Used Date Smoking Tobacco: Never Alcohol Use Standard Drinks/Week Comments No 0 (1 standard drink = 0.6 oz pur e alcohol) Comments Unknown Sex and Gender Information Value Date Recorded Sex Assigned at Not on file Legal Sex Female 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 Gender Identity Female 02/15/2020 6:08 PM [...] COVID: Suspected 08/13/2021 08/14/2021 08/14/2021 3:06 AM THREAT MONITORING ANALYST COVID: Suspected 08/14/2021 08/14/2021 08/15/2021 3:05 AM THREAT MONITORING ANALYST COVID: Suspected 08/14/2021 08/14/2021 08/15/2021 6:25 AM THREAT MONITORING ANALYST COVID: Suspected 06/02/2023 06/02/2023 06/02/2023 7:25 PM THREAT MONITORING ANALYST COVID: Suspected 07/26/2023 07/26/2023 07/26/2023 3:10 PM THREAT MONITORING ANALYST COVID: Suspected 09/25/2024 09/25/2024 09/25/2024 11:03 AM CDT Influenza, adult 09/25/2024 09/25/2024 10/02/2024 3:05 AM CDT documented as of this encounter Care Teams Bell Person Relationship Specialty Start Date End Date Alee Elizondo PA [address] [facility] [address] [place] [address] PCP - General Internal Medicine 02/01/17 06/29/23 Tho Kelsey MD [address] [place] [address] [address] [facility] [address] [place] [address] PCP - General Family Medicine 06/30/23 07/04/23 Alee Elizondo PA [address] [place] [address] PCP - General Internal Medicine 07/05/23 Sharan Linton MD [address] [place] [address] Referring Physician Gastroenterology 10/31/18 Taisha Gomez MD [address] [place] [address] Referring Physician Pulmonary Disease 10/31/18 12/23/20 Parag Soto MD [address] [place] [address] Referring Physician Rheumatology 10/31/18 12/23/20 Martha Starks MD [address] [place] [address] Consulting Physician Cardiology 12/24/20 Puneet Uribe MD [address] [facility] [address] [place] [address] Consulting Physician Rheumatology 12/24/20 01/29/21 Shama Hines MD 47[address] [facility], [facility] [address] [place] [address] Consulting Physician Pain Management 01/19/21 Artis Grewal MD [address] [place] [address] Consulting Physician Rheumatology 01/30/21 Harrison Pena, JULIUS [address] [place] [address] Custom Clothier 05/30/23 09/04/23 Nafisa Gregg, JULIUS [address] [place] [address] [address] [place] [address] Custom Clothier 06/06/23 06/12/23 Amy Mayes NP [address] [address] Nurse Practitioner Cardiovascular Disease 04/20/24 Shailesh Dunn MD [address]00 [facility] [address] [place] [address] Consulting Physician Pulmonary Disease 04/20/24 Sangita Farrar PA [address] [place] [address] Physician Stile Ripsaw Operator Rheumatology 05/15/24 documented as of this encounter
--- OUTSIDE RECORDS SUMMARY | 2024-10-13 15:02 | XMS_ITS | Encounter Summary ---
Author Organization [facility] Healthcare Address [address] [place] [address] Care Team Providers Care Employee Communications Coordinator Name Role Phone Sharan Linton MD Unavailable [phone] Martha Starks MD Unavailable [phone] Shama Hines MD Unavailable Artis Grewal MD Unavailable [phone] Alee Elizondo Primary Care Provider [phone] Amy Mayes NP Unavailable [phone] Shailesh Dunn MD Unavailable [phone] Sangita Farrar Unavailable [phone] Reason for Visit * Reason Onset Date Comments Medication Request 10/10/2024 Encounter Details Date Type Department Care Team (Late st Contact Info) Description 10/10/2024 Telephone [facility] Family Medicine [address] [place] [address] Alee Elizondo PA [address] [place] [address] Medication Request Social History Tobacco Use Types Packs/Day Years Used Date Smoking Tobacco: Never Smokeless Tobacco: Never Comments:Never used Alcohol Use Standard Drinks/Week Comments No 0 (1 standard drink = 0.6 oz pur e alcohol) [facility] Utilities Answer Date Recorded In the past 12 months has th e electric, gas, oil, or water [employer] threatened to shut off services in [...] you have a drink containing alcohol? Never 10/10/2024 Q2: How many drinks containi ng alcohol do you have on a typical day when you are drinking? Patient does not drink Q3: How often do you have si x or more drinks on one occasion? Never 10/10/2024 Overall Financial Resource Strain (CARDIA) Answe r Date Recorded How hard is it for you to pa y for the very basics like food, housing, medical care, and heating? Not hard at all 05/30/2024 PHQ-2 Answer Date Recorded PHQ-2 Total Score (If total score is 3 or more points, staff should administer the PHQ-9) 0 10/10/2024 Hunger Vital Sign Answer Date Recorded Within [...] place to sleep or slept in a mcc (including now)? No 05/27/2023 PHQ-9 Answer Date [...] were you homeless or living in a mcc (including now)? No 05/30/2024 Personal Safety Answer Date Recorded Have you ever been in or are you currently in a harmful physical or emotional relationship or is someone making you feel afraid or unsafe? 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 Never 10/10/2024 7:41 AM Caitlyn Richards M A Q2: How many drinks containing alcohol do you have on a typical day when you are drinking? Patient does not drink 10/10/2024 7:41 AM Caitlyn Richards MA Q3: How often do you have six or more drinks on one occasion? Never 10/10/2024 7:41 AM Caitlyn Richards M A documented as of this encounter Miscellaneous Notes * Telephone Encounter - Star, Yovana, SECURITIES AND REAL ESTATE DIRECTOR - 10/10/2024 9:37 AM CDT Called and clarified that provider wants her to take 2 of the 150mg until supply is gone then startthe 300mg * Telephone Encounter - Mally Naik - 10/10/2024 9:21 AM CDT Medication Question/Clarification Medication Name(s)/Dose: buPROPion XL (WELLBUTRIN XL) 300 mg 24 hr tablet What is the question or clarification needed? Pt called to confirm that she is suppose to take 2 tablets every day instead of one and wanted to confirm with Alee before taking more that previously If needed, Pharmacy(s) medication(s) should be sent to: in file Additional Comments: na Does message need to be routed? Yes-Action Needed documented in this encounter Plan of Treatment Not on file documented as of this encounter Visit Diagnoses Not on filedocumented in this encounter Care Teams Employee Communications Coordinator Relationship Specialty Start Date End Date Alee Elizondo PA [address] [facility] [address] [place] [address] PCP - General Internal Medicine 07/05/23 Sharan Linton MD Referring Physician Gastroenterology 10/31/18 Martha Starks MD Consulting Physician Cardiology 12/24/20 Shama Hines MD [address] [facility] [address] [place] [address] Consulting Physician Pain Management 01/19/21 Artis Grewal MD [address] [place] [address] Consulting Physician Rheumatology 01/30/21 Amy Mayes NP [address] [address] Nurse Practitioner Cardiovascular Disease 04/20/24 Shailesh Dunn MD [address] [address] Consulting Physician Pulmonary Disease 04/20/24 Sangita Farrar PA [address] [place] [address] Physician Lead Business Analyst Rheumatology 05/15/24 documented as of this encounter
--- OUTSIDE RECORDS SUMMARY | 2024-10-13 15:02 | XMS_ITS | Encounter Summary ---
Author Organization [facility] Address [address] [place] [address] Phone Care Team Providers Care High School Mathematics Teacher Name Role Phone Sharan Linton MD Unavailable [phone] Martha Starks MD Unavailable [phone] Shama Hines MD Unavailable Artis Grewal MD Unavailable [phone] Alee Elizondo Primary Care Provider [phone] Amy Mayes NP Unavailable [phone] Shailesh Dunn MD Unavailable [phone] Sangita Farrar Unavailable [phone] Encounter Details Date Type Department Care Team (Late st Contact Info) Description 08/24/2024 Results Follow-Up [facility] [address] [place] [address] Sangita Farrar PA [address] [place] [address] Social History Tobacco Use Types Packs/Day Years Used Date Smoking Tobacco: Never Smokeless Tobacco: Never Comments:Never used Alcohol Use Standard Drinks/Week Comments No 0 (1 standard drink = 0.6 oz pur e alcohol) [facility] Utilities Answer Date Recorded In the [...] any clubs o r organizations such as roman catholic groups, unions, fraternal or athletic groups, [...] place to sleep or slept in a custodial (including now)? No 05/27/2023 PHQ-9 Answer Date [...] any time in the past 12 m [facility], were you homeless or living in a custodial (including now)? No 05/30/2024 Personal Safety Answer Date Recorded Have you ever been in or are you currently in a harmful physical or emotional relationship or is someone making you feel afraid or unsafe? Denies 05/30/2024 Comments No Sex and Gender Information Value Date Recorded Sex Assigned at Not on file Legal Sex Female 8:04 PM INSPECTOR DIALS Gender Identity Female 02/15/2020 6:08 PM CDT [...] documented as of this encounter Care Teams High School Mathematics Teacher Relationship Specialty Start Date End Date Alee Elizondo PA [address] [facility] [address] [place] [address] PCP - General Internal Medicine 07/05/23 Sharan Linton MD Referring Physician Gastroenterology 10/31/18 Martha Starks MD Consulting Physician Cardiology 12/24/20 Shama Hines MD [address] [facility] [address] Consulting Physician Pain Management 01/19/21 Artis Grewal MD [address] [place] [address] Consulting Physician Rheumatology 01/30/21 Amy Mayes NP [address] [address] Nurse Practitioner Cardiovascular Disease 04/20/24 Shailesh Dunn MD [address] [facility] [address] [address] Consulting Physician Pulmonary Disease 04/20/24 Sangita Farrar PA [address] [place] [address] Physician Pearl Fisherman Rheumatology 05/15/24 documented as of this encounter
--- OUTSIDE RECORDS SUMMARY | 2024-10-13 15:02 | XMS_ITS | Encounter Summary ---
Author Organization [facility] Healthcare Address [address] [place] [address] Care Team Providers Care Non Destructive Testing Specialist Name Role Phone Sharan Linton MD Unavailable [phone] Martha Starks MD Unavailable [phone] Shama Hines MD Unavailable Artis Grewal MD Unavailable [phone] Alee Elizondo Primary Care Provider [phone] Amy Mayes NP Unavailable [phone] Shailesh Dunn MD Unavailable [phone] Sangita Farrar Unavailable [phone] Encounter Details Date Type Department Care Team (Late st Contact Info) Description 10/03/2023 Orders Only [facility] Health Information Management [address] [place] [address] Scanning, Provider Social History Tobacco Use Types Packs/Day Years Used Date Smoking Tobacco: Never Smokeless Tobacco: Never Comments:Never used Alcohol Use Standard Drinks/Week Comments No 0 (1 standard drink = 0.6 oz pur e alcohol) [facility] Utilities Answer Date Recorded In [...] often do you attend chur ch or orthodoxy services? 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 Gender Identity Female 02/15/2020 6:08 PM CDT [...] documented as of this encounter Care Teams Non Destructive Testing Specialist Relationship Specialty Start Date End Date Alee Elizondo PA [address] [facility] [address] [place] [address] PCP - General Internal Medicine 07/05/23 Sharan Linton MD Referring Physician Gastroenterology 10/31/18 Martha Starks MD Consulting Physician Cardiology 12/24/20 Shama Hines MD 47[address] [facility], [address] [address] Consulting Physician Pain Management 01/19/21 Artis Grewal MD [address] [place] [address] Consulting Physician Rheumatology 01/30/21 Amy Mayes NP [address] [address] Nurse Practitioner Cardiovascular Disease 04/20/24 Shailesh Dunn MD [address] [facility] [address] [address] Consulting Physician Pulmonary Disease 04/20/24 Sangita Farrar PA [address] [place] [address] Physician Transplant Registered Nurse Rheumatology 05/15/24 documented as of this encounter
--- OUTSIDE RECORDS SUMMARY | 2024-10-13 15:02 | XMS_ITS | Continuity of Care Document ---
Author Organization [facility] Address [address] [place] [address] [address] [place] [address] Phone Care Team Providers Care Telecommunication Operator Name Role Phone Torsten Ramesh Unavailable [...] Diagnoses Date Provider Providers Copied on Encounter [facility], [address], [place], [place], [id number], [place] tel:[phone] [place] No Information 0 5 Muehl Torsten. [address] [facility], [address], [place], [address], [place]. tel: [phone] Referring Provider: Alee Elizondo, [address] [place] [address] [address], [place], [address]. tel:[phone] [facility] [address], [place], [place], [id number], [place] tel:[phone] [place] No Information 0 4 Muehl Torsten. [address] [place] [address], [address], [place], [address], [place]. tel: [phone] Referring Provider: Alee Elizondo, [address] [place] [address] [address], [place], [address]. tel:[phone] [place] [address] [address], [place], [place], [id number], [place] tel:[phone] [place] No Information 0 4 Muehl Torsten. [address] [place] [address], [address], [place], [address], [place]. tel: [phone] Referring Provider: Alee Elizondo, [address] [place] [address] Road [address], [place], [address]. tel:[phone] [facility] [address], [place], [place], [id number], [place] tel:[phone] [place] No Information 2 4 Muehl Torsten. [address] [place] [address], [address], [place], [address], [place]. tel: [phone] Referring Provider: Alee Elizondo, [address] [facility] [address], [place], [address]. tel:[phone] [facility], [place], [id number], [place] tel:[phone] [place] No Information 4 Muehl Torsten. [address] [facility], [facility] [address], [place], [facility], . tel: [phone] Referring Provider: Alee Elizondo, [address] [place] [address] Road [address], [place], [address]. tel:[phone] [facility] [facility] [address], [place], [id number], [place] tel:[phone] [place] No Information Phill Torsten. [address] [place] [address], [address], [place], [facility], [place]. tel: [phone] Referring Provider: Alee Elizondo, [address] [place] [address] Road [address], [place], [address]. tel:[phone] [facility] [facility] [address] [address], [place], [id number], [place] tel:[phone] [place] No Information Phill Torsten. [address] [place] [address], [address], [place], [facility], [place]. tel: [phone] Referring Provider: Alee Elizondo, [address] [place] [address] Road [address], [place], [address]. tel:[phone] [facility] [facility] [address], [place], [id number], [place] tel:[phone] [place] Lumbago 4 Muehl Torsten. [address] [facility], [address], [place], [address], [place]. tel: [phone] Referring Provider: Alee Elizondo, [facility] [facility] [address], [place], [address]. tel:[phone] Family History Family Member Type Diagnosis Age [...]
--- OUTSIDE RECORDS SUMMARY | 2024-10-13 15:02 | XMS_ITS | Clinical Summary ---
Author Organization [facility] Address [address] [place] [address] Care Team Providers Care Medical Concierge Name Role Phone Unavailable Primary Care Provider [...]
--- OUTSIDE RECORDS SUMMARY | 2024-10-13 15:02 | XMS_ITS | Clinical Summary ---
Author Organization [facility] Address [address] [facility] [place] [address] Care Team Providers Care Blacksmith Hammer Operator Name Role Phone Darvin Harden MD Primary Care Provider [phone] Source Comments [facility],non-owned Affiliates and Associated Physician Practices is amultiple site organization consisting of ambulatory clinics and hospital sitesin [place], [place], [place] and [place]. This disclosure is being madepursuant to the Care Everywhere program and may not contain all information available regarding this patient. Last updated 18.[facility] Allergies Active Allergy Reactions Criticality Noted Date Comments Meperidine Urticaria Medium 10/19/2023 Penicillins Urticaria Medium 10/19/2023 Medications * Be aware that medications may not be up to date on this document. Alwaysverify current medications with the patient. abatacept (Orencia) 125 MG/ML prefilled syringe Inject 1 (one) syringe subcutaneously Active bumetanide (Bumex) 1 MG tablet Take 1 (one) tablet by mouth 2 times daily 3 Active buPROPion XL 24hr (Wellbutrin-XL ) 150 MG tablet Take 1 (one) tablet by mouth every morning 4 Active vitamin D3 (Cholecalcifer ol) 125 MCG (5000 UT) capsule Take 1 (one) capsule by mouth once daily Active Docusate Sodium (DSS) 100 MG Take 200 mg by mouth 2 times daily Active DULoxetine (Cymbalta) 60 MG capsule Take 1 (one) capsule by mouth once daily 3 Active fluticasone propionate (Flonase) 50 MCG/ACT nasal spray [place] 2 (two) sprays into the nose once daily 4 Active folic acid (Folvite) 1 MG tablet Take 2 (two) tablets by mouth once daily 4 Active gabapentin (Neurontin) 100 MG capsule Take 2 (two) capsules by mouth 2 times daily 4 Active gabapentin (Neurontin) 300 MG capsule Take 1 (one) capsule by mouth at bedtime 4 Active hydroxychloroq uine (Plaquenil) 200 MG tablet Take 1 (one) tablet by mouth 2 times daily 4 Active ketoconazole (Nizoral) 2 % shampoo WASH SCALP 3 TIMES WEEKLY 4 Active meloxicam (Mobic) 15 MG tablet Take 0.5 (one-half) tablet by mouth once daily 4 Active methotrexate 2.5 MG tablet Take 8 (eight) tablets by mouth every 7 days 4 Active montelukast (Singulair) 10 MG tablet Take 1 (one) tablet by mouth 3 Active potassium chloride ER (K-Tab) 10 MEQ tablet Take 1 (one) tablet by mouth once daily 30 tablet 11 3 Active pravastatin (Pravachol) 40 MG tablet Take 1 (one) tablet by mouth once daily 3 Active sucralfate (Carafate) 1 GM tablet Take [...] at Not on file Legal Sex Female 4:14 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 Gender Identity Not on file Sexual Orientation [...] MAMMOGRAM 05/29/2023 05/29/2021, 04/25/2020 COVID-19 VACCINE ( season) 2024 04/14/2023, 08/17/2022, 03/30/2022, Additional history exists DEPRESSION SCREENING 07/04/2024 INFLUENZA VACCINE (Season Ended) 2025 04/06/2023, 03/30/2022, 04/10/2020, Additional history exists Respiratory Syncytial Virus (RSV) Vaccine Pt: or [...] on patient's age to complete this topic Insurance MEDICARE [facility] MEDICARE SELF PAY NO INSURANCE Member Subscriber Plan / Payer (Ef fective for All Dates) Name:Nohemy Lock Member ID:Not on file Relation to Subscriber:Not on file Name:NOHEMY LOCK Subscriber ID:Not on file Address: [address] [address] Payer ID:Not on file Group ID:Not on file Type:Self Pay Address: [place], [place] [facility] MEDICARE SELF PAY NO INSURANCE Member Subscriber Plan / Payer (Ef fective for All Dates) Name:Nohemy Lock Member ID:Not on file Relation to Subscriber:Not on file Name:NOHEMY LOCK Subscriber ID:Not on file Address: [address] [address] Payer ID:Not on file Group ID:Not on file Type:Self Pay Address: [place], [place] [facility] MEDICARE SELF PAY NO INSURANCE Member Subscriber Plan / Payer (Ef fective for All Dates) Name:Noheym Lock Member ID:Not on file Relation to Subscriber:Not on file Name:NOHEMY LOCK Subscriber ID:Not on file Address: [facility] [place] [address] Payer ID:Not on file Group ID:Not on file Type:Self Pay Address: [place], [place] Care Teams Blacksmith Hammer Operator Relationship Specialty Start Date End Date Darvin Harden MD [address] [facility] [address] [place] [address] PCP - General 07/11/19
--- OUTSIDE RECORDS SUMMARY | 2024-10-13 15:02 | XMS_ITS | Encounter Summary ---
Author Organization [facility] Facility Care Team Providers Care Hard Metals Hand Engraver Name Role Phone Alee Elizondo Primary Care Provider + [phone] Sharan Linton MD Unavailable [phone] Taisha Gomez MD Unavailable [phone] Parag Soto MD Unavailable [phone] RaziaMartha singh MD Unavailable [phone] Puneet Uribe MD Unavailable [phone] Shama Hines MD Unavailable Artis Grewal MD Unavailable [phone] Harrison Pena RN Unavailable [phone] Nafisa Gregg RN Unavailable [phone] Tho Kelsey MD Primary Care Provider [phone] Alee Elizondo Primary Care Provider + [phone] Amy Mayes NP Unavailable [phone] Shailesh Dunn MD Unavailable [phone] Sangita Farrar Unavailable [phone] Encounter Details Date Type Department Care Team (Latest Contact Info) Description 12/31/2015 Orders Only [facility]INCONV Provider, MD Tania [address] [place] [address] Social History Tobacco Use Types Packs/Day Years Used Date Smoking Tobacco: Never Alcohol Use Standard Drinks/Week Comments No 0 (1 standard drink = 0.6 oz pur e alcohol) Comments Unknown Sex and Gender Information Value Date Recorded Sex Assigned at Not on file Legal Sex Female 8:04 PM LOOM FIXER 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 Gender Identity Female 02/15/2020 6:08 PM [...] COVID: Suspected 08/13/2021 08/14/2021 08/14/2021 3:06 AM LOOM FIXER HELPER COVID: Suspected 08/14/2021 08/14/2021 08/15/2021 3:05 AM LOOM FIXER HELPER COVID: Suspected 08/14/2021 08/14/2021 08/15/2021 6:25 AM LOOM FIXER HELPER COVID: Suspected 06/02/2023 06/02/2023 06/02/2023 7:25 PM LOOM FIXER HELPER COVID: Suspected 07/26/2023 07/26/2023 07/26/2023 3:10 PM LOOM FIXER HELPER COVID: Suspected 09/25/2024 09/25/2024 09/25/2024 11:03 AM CDT Influenza, adult 09/25/2024 09/25/2024 10/02/2024 3:05 AM CDT documented as of this encounter Care Teams Hard Metals Hand Engraver Relationship Specialty Start Date End Date Alee Elizondo PA [address] [facility] [address] [place] [address] PCP - General Internal Medicine 02/01/17 06/29/23 Tho Kelsey MD [address] [place] [address] [address] [facility] [address] [place] [address] PCP - General Family Medicine 06/30/23 07/04/23 Alee Elizondo PA [address] [place] [address] PCP - General Internal Medicine 07/05/23 Sharan Linton MD [address] [facility] [address] [place], [place] [id number] Referring Physician Gastroenterology 10/31/18 Taisha Gomez MD [address] [facility] [address] [place], [place] [id number] Referring Physician Pulmonary Disease 10/31/18 12/23/20 Parag Soto MD [address] [facility] [address] [place] [address] Referring Physician Rheumatology 10/31/18 12/23/20 Martha Starks MD [address] [place], [place] [id number] Consulting Physician Cardiology 12/24/20 Puneet Uribe MD [address] [facility] [address] [place] [address] Consulting Physician Rheumatology 12/24/20 01/29/21 Shama Hines MD [address] [facility], [facility] [address] [place] [address] Consulting Physician Pain Management 01/19/21 Artis Grewal MD [address] [place] [address] Consulting Physician Rheumatology 01/30/21 Harrison Pena, JULIUS [address] [place] [address] Chief Electrician 05/30/23 09/04/23 Nafisa Gregg, JULIUS [address] [place] [address] [facility] [address] [place] [address] Chief Electrician 06/06/23 06/12/23 Amy Mayes NP [address] [address] Nurse Practitioner Cardiovascular Disease 04/20/24 Shailesh Dunn MD [address] [address] Consulting Physician Pulmonary Disease 04/20/24 Sangita Farrar PA [address] [place] [address] Physician Sports Commentator Rheumatology 05/15/24 documented as of this encounter
--- OUTSIDE RECORDS SUMMARY | 2024-10-13 15:02 | XMS_ITS | Encounter Summary ---
Author Organization [facility] Healthcare Address [address] [place] [address] Care Team Providers Care Plumbing Technician Name Role Phone Sharan Linton MD Unavailable [phone] Martha Starks MD Unavailable [phone] Shama Hines MD Unavailable Artis Grewal MD Unavailable [phone] Alee Elizondo Primary Care Provider [phone] Amy Mayes NP Unavailable +[phone] Shailesh Dunn MD Unavailable [phone] Sangita Farrar Unavailable [phone] Encounter Details Date Type Department Care Team (Late st Contact Info) Description 10/07/2024 Orders Only [facility] Health Information Management [address] [place] [address] Alee Elizondo PA [address] [place], [place] [id number] Social History Tobacco Use Types Packs/Day Years Used Date Smoking Tobacco: Never Smokeless Tobacco: Never Comments:Never used Alcohol Use Standard Drinks/Week Comments No 0 (1 standard drink = 0.6 oz pur e alcohol) [facility] Utilities Answer Date Recorded In the past 12 months has [employer], gas, oil, or water company threatened [...] any time in the past 12 m [facility], were you homeless or living in a [...] on file Legal Sex Female 8:04 PM 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 Never 10/10/2024 7:41 AM DUT Caitlyn Hua M A Q2: How many drinks containing alcohol do you have on a typical day when you are drinking? Patient does not drink 10/10/2024 7:41 AM Caitlyn Richards MA Q3: How often do you have six or more drinks on one occasion? Never 10/10/2024 7:41 AM Caitlyn Richards M A documented as of this encounter Plan of Treatment Not on file documented as of this encounter Procedures Procedure Name Priority Date/Time Associated Diagnosis Comments SCAN - LABS 10/07/2024 documented in this encounter Results * SCAN - LABS (10/07/2024) Alee OSMAN Final Resu lt documented in this encounter Visit Diagnoses Not on filedocumented in this encounter Care Teams Plumbing Technician Relationship Specialty Start Date End Date Alee Elizondo PA [address] [facility] [address] [place] [address] PCP - General Internal Medicine 07/05/23 Sharan Linton MD Referring Physician Gastroenterology 10/31/18 Martha Starks MD Consulting Physician Cardiology 12/24/20 Shama Hines MD [address] [facility], [facility] [address] [place] [address] Consulting Physician Pain Management 01/19/21 Artis Grewal MD [address] [place] [address] Consulting Physician Rheumatology 01/30/21 Amy Mayes NP [address] [facility] [address] [place] [address] Nurse Practitioner Cardiovascular Disease 04/20/24 Shailesh Dunn MD [address] [facility] [address] [place] [address] Consulting Physician Pulmonary Disease 04/20/24 Sangita Farrar PA [address] [facility] [place] [address] Physician Cost Accounting Clerk Rheumatology 05/15/24 documented as of this encounter
--- OUTSIDE RECORDS SUMMARY | 2024-10-13 15:02 | XMS_ITS | Encounter Summary ---
Author Organization [facility] Healthcare Address [address] [place] [address] Care Team Providers Care Neon Sign Worker Name Role Phone Sharan Linton MD Unavailable [phone] Martha Starks MD Unavailable [phone] Shama Hines MD Unavailable Artis Grewal MD Unavailable [phone] Alee Elizondo Primary Care Provider [phone] Amy Mayes NP Unavailable [phone] Shailesh Dunn MD Unavailable [phone] Sangita Farrar Unavailable [phone] Encounter Details Date Type Department Care Team (Late st Contact Info) Description 10/12/2024 Results Follow-Up [facility] Medical Group Family Medicine [address] [place] [address] Alee Elizondo PA [address] [facility] [address] [place] [address] Social History Tobacco Use Types Packs/Day Years Used Date Smoking Tobacco: Never Smokeless Tobacco: Never Comments:Never used Alcohol Use Standard Drinks/Week Comments No 0 (1 standard drink = 0.6 oz pur e alcohol) [facility] Utilities Answer Date Recorded In the past 12 months has [employer], oil, or water [employer] threatened to shut off services in your [...] any clubs o r organizations such as orthodox groups, unions, fraternal or athletic groups, or [...] on file Legal 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 Female 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 Gender Identity Female 02/15/2020 6:08 PM CDT Sexual Orientation Not on file documented as of this encounter Plan of Treatment Not on file documented as of this encounter Visit Diagnoses Not on filedocumented in this encounter Care Teams Neon Sign Worker Relationship Specialty Start Date End Date Alee Elizondo PA [address] [facility] [address] [place] [address] PCP - General Internal Medicine 07/05/23 Sharan Linton MD Referring Physician Gastroenterology 10/31/18 Martha Starks MD Consulting Physician Cardiology 12/24/20 Shama Hines MD [address] [facility], [facility] [address] [place] [address] Consulting Physician Pain Management 01/19/21 Artis Grewal MD [address] [place] [address] Consulting Physician Rheumatology 01/30/21 Amy Mayes NP [address] [address] Nurse Practitioner Cardiovascular Disease 04/20/24 Shailesh Dunn MD [address] [facility] [address] [address] Consulting Physician Pulmonary Disease 04/20/24 Snagita Farrar PA [address] [place] [address] Physician Radio Performer Rheumatology 05/15/24 documented as of this encounter
--- OUTSIDE RECORDS SUMMARY | 2024-10-13 15:02 | XMS_ITS | Encounter Summary ---
Author Organization [facility] Healthcare Address [address] [place] [address] Care Team Providers Care Crew Scheduler Name Role Phone Sharan Linton MD Unavailable [phone] Martha Starks MD Unavailable [phone] Shama Hines MD Unavailable Artis Grewal MD Unavailable [phone] Alee Elizondo Primary Care Provider [phone] Amy Mayes NP Unavailable [phone] Shailesh Dunn MD Unavailable [phone] Sangita Farrar Unavailable [phone] Reason for Visit * Reason Onset Date Comments Medical Question/Miscellaneous 09/25/2024 Encounter Details Date Type Department Care Team (Late st Contact Info) Description 09/25/2024 Results Follow-Up [facility] Medical Group Family Medicine [address] [place] [address] Alee Elizondo PA [address] [facility] [address] [address] [place] [address] Social History Tobacco Use Types Packs/Day Years Used Date Smoking Tobacco: Never Smokeless Tobacco: Never Comments:Never used Alcohol Use Standard Drinks/Week Comments No 0 (1 standard drink = 0.6 oz pur e alcohol) [facility] Utilities Answer Date Recorded In the [...] often do you attend chur ch or faith services? 1 to 4 times per year [...] in the past 12 m [facility], were you homeless or living [...] on file Legal Sex Female 8:04 PM GREASE MONKEY Gender Identity Female 02/15/2020 6:08 PM CDT [...] documented as of this encounter Care Teams Crew Scheduler Relationship Specialty Start Date End Date Alee Elizondo PA [address] [facility] [address] [place] [address] PCP - General Internal Medicine 07/05/23 Sharan Linton MD Referring Physician Gastroenterology 10/31/18 Martha Starks MD Consulting Physician Cardiology 12/24/20 Shama Hines MD [address] [facility] [address] Consulting Physician Pain Management 01/19/21 Artis Grewal MD [address] [place] [address] Consulting Physician Rheumatology 01/30/21 Amy Mayes NP [address] [facility] [address] [place] [address] [address] [place] [address] Nurse Practitioner Cardiovascular Disease 04/20/24 Shailesh Dunn MD [address] [address] Consulting Physician Pulmonary Disease 04/20/24 Sangita Farrar PA [address] [place] [address] Physician Coal Cutting 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 Rheumatology 05/15/24 documented as of this encounter
--- OUTSIDE RECORDS SUMMARY | 2024-10-13 15:02 | XMS_ITS | Encounter Summary ---
Author Organization [facility] Healthcare Address [address] [place] [address] Care Team Providers Care Strike Off 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 Name Role Phone Sharan Linton MD Unavailable [phone] Martha Starks MD Unavailable [phone] Shama Hines MD Unavailable Artis Grewal MD Unavailable [phone] Alee Elizondo Primary Care Provider [phone] Amy Mayes NP Unavailable [phone] Shailesh Dunn MD Unavailable [phone] Sangita Farrar Unavailable [phone] Encounter Details Date Type Department Care Team (Late st Contact Info) Description 10/11/2023 Orders Only [facility] Health Information Management [address] [place] [address] Scanning, Provider Social History Tobacco Use Types [...] you attend chur ch or catholic services? More than 4 times per year [...] a skilled nursing (including now)? 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 Gender Identity Female 02/15/2020 6:08 PM [...] documented as of this encounter Care Teams Strike Off 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 Relationship Specialty Start Date End Date Alee Elizondo PA [address] [facility] [address] [place] [address] PCP - General Internal Medicine 07/05/23 Sharan Linton MD Referring Physician Gastroenterology 10/31/18 Martha Starks MD Consulting Physician Cardiology 12/24/20 Shama Hines MD [address] [place] [address] [facility], [facility] [address] [place] [address] Consulting Physician Pain Management 01/19/21 Artis Grewal MD [address] [place] [address] Consulting Physician Rheumatology 01/30/21 Amy Mayes NP [address] [address] Nurse Practitioner Cardiovascular Disease 04/20/24 Shailesh Dunn MD 46[address] [facility] [address] [address] Consulting Physician Pulmonary Disease 04/20/24 Sangita Farrar PA [address] [place] [address] Physician Senior Reactor Operator Rheumatology 05/15/24 documented as of this encounter
--- OUTSIDE RECORDS SUMMARY | 2024-10-13 15:02 | XMS_ITS | Encounter Summary ---
Author Organization [facility] Care Team Providers Care Business Professor Name Role Phone Alee Elizondo Primary Care Provider + [phone] Sharan Linton MD Unavailable [phone] Taisha Gomez MD Unavailable [phone] Parag Soto MD Unavailable [phone] RaziaMartha singh MD Unavailable [phone] Puneet Uribe MD Unavailable [phone] Shama Hines MD Unavailable Artis Grewal MD Unavailable [phone] Harrison Pena RN Unavailable [phone] Nafisa Gregg RN Unavailable [phone] Tho Kelsey MD Primary Care Provider [phone] Alee Elizondo Primary Care Provider + [phone] Amy Mayes NP Unavailable [phone] Shailesh Dunn MD Unavailable [phone] Sangita Farrar Unavailable [phone] Encounter Details Date Type Department Care Team (Latest Contact Info) Description 11/04/2015 Orders Only [facility] Provider, MD Tania [address] [place] [address] Social History Tobacco Use Types Packs/Day Years Used Date Smoking Tobacco: Never Assessed Comments Unknown Sex and Gender Information Value Date Recorded Sex Assigned at Not on file 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 Gender Identity Female 02/15/2020 6:08 PM [...] COVID: Suspected 08/13/2021 08/14/2021 08/14/2021 3:06 AM GASOLINE TRUCK CRANE OPERATOR COVID: Suspected 08/14/2021 08/14/2021 08/15/2021 3:05 AM GASOLINE TRUCK CRANE OPERATOR COVID: Suspected 08/14/2021 08/14/2021 08/15/2021 6:25 AM GASOLINE TRUCK CRANE OPERATOR COVID: Suspected 06/02/2023 06/02/2023 06/02/2023 7:25 PM GASOLINE TRUCK CRANE OPERATOR COVID: Suspected 07/26/2023 07/26/2023 07/26/2023 3:10 PM GASOLINE TRUCK CRANE OPERATOR COVID: Suspected 09/25/2024 09/25/2024 09/25/2024 11:03 AM CDT Influenza, adult 09/25/2024 09/25/2024 10/02/2024 3:05 AM CDT documented as of this encounter Care Teams Business Professor Relationship Specialty Start Date End Date Alee Elizondo PA [address] [facility] [address] [place] [address] PCP - General Internal Medicine 02/01/17 06/29/23 Tho Kelsey MD [address] [place] [address] [address] [facility] [address] [place] [address] PCP - General Family Medicine 06/30/23 07/04/23 Alee Elizondo PA [address] [place] [address] PCP - General Internal Medicine 07/05/23 Sharan Linton MD [address] [place] [address] Referring Physician Gastroenterology 10/31/18 Taisha Gomez MD [address] [place] [address] Referring Physician Pulmonary Disease 10/31/18 12/23/20 Parag Soto MD [address] [place] [address] Referring Physician Rheumatology 10/31/18 12/23/20 Martha Starks MD [address] [place] [address] Consulting Physician Cardiology 12/24/20 Puneet Uribe MD [address] [facility] [address] [place] [address] Consulting Physician Rheumatology 12/24/20 01/29/21 Shama Hines MD 47[address] [facility], [facility] [address] [place] [address] Consulting Physician Pain Management 01/19/21 Artis Grewal MD [address] [place] [address] Consulting Physician Rheumatology 01/30/21 Harrison Pena, JULIUS [address] [place] [address] Contract Implementation Analyst 05/30/23 09/04/23 Nafisa Gregg RN [address] [place] [address] [address] [place] [address] Contract Implementation Analyst 06/06/23 06/12/23 Amy Mayes NP [address] [address] Nurse Practitioner Cardiovascular Disease 04/20/24 Shailesh Dunn MD [address] [address] Consulting Physician Pulmonary Disease 04/20/24 Sangita Farrar PA [address] [place] [address] Physician Logistics Loss Prevention Manager Rheumatology 05/15/24 documented as of this encounter
--- OUTSIDE RECORDS SUMMARY | 2024-10-13 15:02 | XMS_ITS | Encounter Summary ---
Author Organization [facility] Healthcare Address [address] [place] [address] Care Team Providers Care Apartment Leasing Consultant Name Role Phone Sharan Linton MD Unavailable [phone] Martha Starks MD Unavailable [phone] Shama Hines MD Unavailable Artis Grewal MD Unavailable [phone] Alee Elizondo Primary Care Provider [phone] Amy Mayes NP Unavailable [phone] Shailesh Dunn MD Unavailable [phone] Sangita Farrar Unavailable [phone] Encounter Details Date Type Department Care Team (Late st Contact Info) Description 09/04/2024 Results Follow-Up [facility] Medical Group Family Medicine [address] [place] [address] Alee Elizondo PA [address] [facility] [address] [place] [address] Social History Tobacco Use Types Packs/Day Years Used Date Smoking Tobacco: Never Smokeless Tobacco: Never Comments:Never used Alcohol Use Standard Drinks/Week Comments No 0 (1 standard drink = 0.6 oz pur e alcohol) [facility] Utilities Answer Date Recorded In the past 12 months has [employer], oil, or water [employer] threatened to shut off services in your [...] often do you attend chur ch or lutheran services? 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 Gender Identity Female 02/15/2020 6:08 PM [...] documented as of this encounter Care Teams Apartment Leasing Consultant Relationship Specialty [place] [address] [place] [address] PCP - General Internal Medicine 07/05/23 Sharan Linton MD Referring Physician Gastroenterology 10/31/18 Martha Starks MD Consulting Physician Cardiology 12/24/20 Shama Hines MD 4700 [facility], [address] [address] Consulting Physician Pain Management 01/19/21 Artis Grewal MD [address] [place] [address] Consulting Physician Rheumatology 01/30/21 Amy Mayes NP [address] [address] Nurse Practitioner Cardiovascular Disease 04/20/24 Shailesh Dunn MD [address] [address] Consulting Physician Pulmonary Disease 04/20/24 Sangita Farrar PA [address] [place] [address] Physician Evs Tech Rheumatology 05/15/24 documented as of this encounter
--- OUTSIDE RECORDS SUMMARY | 2024-10-13 15:02 | XMS_ITS | Referral Summary ---
Author Organization [facility] [address] Address [address] [place] [address] Care Team Providers Care Director Community Organization Name Role Phone Sharan Linton MD Unavailable [phone] Martha Starks MD Unavailable [phone] Shama Hines MD Unavailable Artis Grewal MD Unavailable [phone] Alee Elizondo Primary Care Provider + [phone] Amy Mayes NP Unavailable [phone] Shailesh Dunn MD Unavailable [phone] Sangita Farrar Unavailable [phone] Encounters Date Type Department Care Team Description 10/12/2024 Results Follow-Up [facility] [address] [place] [address] Road [address] [place] [address] Alee Elizondo PA 10/10/[address] [place] [address] Alee Elizondo PA Medication Request 10/10/2024 7:30 AM CDT Office Visit [address] [place] [address] Alee Elizondo PA Annual physical exam (Primary Dx); 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); Age-related osteoporosis without current pathological fracture; OWEN on CPAP; Moderate episode of recurrent major depressive disorder (HCC); Mixed hyperlipidemia; Pre-diabetes; Gastroesophageal reflux disease without esophagitis; Pelvic lipomatosis; BMI 35.0-35.9,adult; Morbid obesity (HCC) 10/07/2024 Orders Only [facility] Health Information Management [address] [place] [address] Alee Elizondo PA 10/04/2024 Results Follow-Up [facility] [address] [place] [address] [address] [place] [address] Alee Elizondo PA 10/04/2024 Orders Only [facility] Medicine [address] [place] [address] Road [address] [place] [address] ProviderTania MD 10/03/[address] [place] [address] Alee Elizondo PA 09/26/2024 Orders Only [address] [place] [address] Alee Elizonod PA Breast cancer screening by mammogram (Primary Dx) 09/25/2024 Results Follow-Up [address] [place] [address] Alee Elizondo PA 09/25/2024 11:00 AM CDT Office Visit [facility] [address] [address] Jessica Collins NP Influenza A (Primary Dx); Acute cough 09/20/2024 Telephone [facility] Sports Medicine [address] [facility] [address] [place] [address] Michael Motta MD med clarification 09/20/2024 8:00 AM CDT Office Visit [facility] Cardiology [address] [address] [address] [place] [address] Devika Marin MD Venous insufficiency (chronic) (peripheral) (Primary Dx); Mixed hyperlipidemia 09/14/[address] [address] Codi Branham 09/13/2024 1:44 PM CDT - 09/13/2024 11:59 PM CDT Hospital Encounter [facility] Di[facility] Imaging [address] [place] [address] Chronic pain of right knee Discharge Disposition: Discharge to home or self care 09/13/2024 2:45 PM CDT Office Visit [facility]ics [facility] Sports Medicine [facility] [address] [place] [phone] Michael Motta MD Chronic pain of right knee (Primary Dx); History of total knee arthroplasty, right 09/04/2024 Results Follow-Up [address] [place] [address] Alee Elizondo PA 08/31/[address] [place] [address] Alee Elizondo PA Medical Question/Miscellaneou s 08/31/2024 Orders Only [address] [place] [address] ProviderTania MD 08/29/2024 Nurse Triage [address] [place] [address] Alee Elizondo PA 08/29/2024 Telephone [facility] Pulmonary [address] [place] [address] Shailesh Dunn MD Med Refill (Ropinirol HCL 0.5MG tab) 08/24/2024 Results Follow-Up [address] [phone] Sangita Farrar PA 08/23/2024 Orders Only [facility] Health Information Management [address] [place] [address] Alee Elizondo PA 08/23/[address] [address] Sangita Farrar PA Orencia Approved 08/23/2024 11:30 AM PIECE DYEING MACHINE TENDER Office Visit [address] [address] Sangita Farrar PA 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) (Primary Dx); Primary osteoarthritis involving multiple joints; Encounter for medication monitoring 08/21/[address] [address] Codi Branham 08/02/2024 Telephone [facility] Pulmonary [address] [address] Shailesh Dunn MD Orders Only 08/02/2024 11:45 AM PIECE DYEING MACHINE TENDER Office Visit [facility] Pulmonary [address] [address] Magaly Snider NP OWEN on CPAP (Primary Dx); OWEN (obstructive sleep apnea); PLMD (periodic limb movement disorder) 08/01/2024 Orders Only [facility] Family Medicine [address] [facility] [address] [place] [address] Alee Elizondo PA Pre-diabetes (Primary Dx); Mixed hyperlipidemia; Fatigue, unspecified type 07/30/2024 9:00 AM PIECE DYEING MACHINE TENDER Office Visit [address] [address] Sangita Farrar PA 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) (Primary Dx); Primary osteoarthritis involving multiple joints; Encounter for medication monitoring 07/24/2024 1:27 PM PIECE DYEING MACHINE TENDER - 07/24/2024 11:59 PM PIECE DYEING MACHINE TENDER Hospital Encounter [facility] Di[facility] Imaging [address] [place] [address] Status post total knee replacement using cement, right Discharge Disposition: Discharge to home or self care 07/24/2024 Telephone [facility] Family Medicine [address] [facility] [address] [place] [address] Alee Elizondo PA Referral Request (/) 07/24/2024 2:00 PM PIECE DYEING MACHINE TENDER Office Visit [facility] Medical [facility] [address] [place] [phone] Michael Motta MD Status post total knee replacement using cement, right (Primary Dx) from Last 3 Months Allergies Active Allergy [...] mcg total) by mouth daily 022 Active Additional Information Patient not taking.Reported on 10/10/2024 ketoconazole (NIZORAL) 2 % shampoo WASH SCALP 3 TIMES WEEKLY 024 Active bumetanide (BUMEX) 1 mg tabletIndications :Edema, lower extremity TAKE 1 TABLET BY MOUTH TWICE A DAY 180 tablet 1 024 Active cyclobenzaprine (FLEXERIL) 5 mg tabletIndications :Primary osteoarthritis involving multiple joints TAKE 1-2 TABLETS BY MOUTH NIGHLTY NEEDED 60 tablet 2 024 Active potassium chloride ER [...] ORAL) Take by mouth Act alexys DULoxetine (CYMBALTA) 60 mg capsuleIndication s:Moderate episode of [...] needed for cough 30 capsule 025 Active sulfamethoxazole- trimethoprim (BACTRIM) 400-80 mg per tablet Take by mouth Ac tive buPROPion XL (WELLBUTRIN XL) 300 mg 24 hr tablet Take 1 tablet (300 mg total) by mouth every morning 90 tablet [address] (CYMBALTA) 60 mg capsuleIndication s:Moderate episode of recurrent major depressive disorder (HCC) TAKE 1 CAPSULE BY MOUTH EVERY DAY 90 capsule 2 024 2024 Discontinued gabapentin (NEURONTIN) 100 mg capsule TAKE 2 CAPSULES BY MOUTH TWICE A DAY 120 capsule 2 024 2024 Discontinued buPROPion XL (WELLBUTRIN XL) 150 mg 24 hr tabletIndications :Anxiety with Depression Take 1 tablet (150 mg total) by mouth every morning 90 tablet 2 024 2024 Discontinued oseltamivir (Tamiflu) 75 mg capsuleIndication s:Influenza A Take 1 capsule (75 mg total) by mouth 2 (two) times a day for 5 days 10 capsule 025 2024 Active Problems Patient Care Coordination No te Formatting of this note migh t be different from the original. CAD for BIC Problem Noted Date Diagnosed Date Annual physical exam 10/09/2024 Primary osteoarthritis 06/01/2024 Arthritis of right knee 05/30/2024 Pelvic pain 10/30/2023 Assessment & Plan (10/30/2023 11:44 PM CDT): Patient has a large pelvic lipomatosis. She has had evaluation by Urology at [facility] and has been told there [...] repositioning it and changing it is capacity. Morbid obesity 08/03/2023 Assessment & Plan (10/10/2024 7:47 AM CDT): Discussed the patient's BMI. The BMI is above average. BMI management plan is completed. BMI Follow-up includes: nutrition counseling, exercise counseling and education provided. Assessment & Plan (05/07/2024 8:56 PM PIECE DYEING MACHINE TENDER): Discussed the patient's BMI. The BMI is [...] provided. Assessment & Plan (09/06/2023 9:38 AM PIECE DYEING MACHINE TENDER): Discussed the patient's BMI. The BMI is above average. BMI management plan is completed. BMI Follow-up includes: nutrition counseling, exercise counseling and education provided. Patient has an obesity-related condition (not limited to: hypertension, obstructive sleep apnea, osteoarthritis, hyperlipidemia, diabetes, etc.). Therefore, morbid obesity may be documented for patients with a BMI between 35.00-39.99. Assessment & Plan (08/07/2023 7:51 PM PIECE DYEING MACHINE TENDER): Discussed the patient's BMI. The BMI is above average. BMI management plan is completed. BMI Follow-up includes: nutrition counseling, exercise counseling and education provided. Patient has an obesity-related condition (not limited to: hypertension, obstructive sleep apnea, osteoarthritis, hyperlipidemia, diabetes, etc.). Therefore, morbid obesity may be documented for patients with a BMI between 35.00-39.99. Assessment & Plan (08/03/2023 7:45 AM PIECE DYEING MACHINE TENDER): Discussed the patient's BMI. The BMI is above average. BMI management plan is completed. BMI Follow-up includes: nutrition counseling, exercise counseling and education provided. Primary osteoarthritis of right knee 07/08/2023 Assessment & Plan (05/07/2024 8:56 PM PIECE DYEING MACHINE TENDER): Patient has arthritis in the right knee. Planning a total knee replacement with Dr. Alexus Motta on May 30 Assessment & Plan (08/03/2023 8:28 AM PIECE DYEING MACHINE TENDER): Continue per ortho. She is seeing some improvement but it is difficult to know if the knee is rheumatoid versus osteo versus other etiology. Will await recommendations from JACQUI Raya but definitely encouraged her to become active as soon as possible. Status post total knee replacement using cement, right 05/19/2023 Assessment & Plan (06/02/2023 4:56 PM PIECE DYEING MACHINE TENDER): Status post total knee replacement with Dr. Ge Sexton 04 May. She has just been released from rehab following up for her TCM visit. She appears to have an area of cellulitis at the incision site. She is also complaining of increased pain. Will check CBC CMP and inflammatory markers along with an x-ray. She plans to go to [facility] for the workup. Will follow up [...] 05/06/2023 BMI 35.0-35.9,adult 04/06/2023 Assessment & Plan (10/10/2024 7:47 AM CDT): Discussed the patient's BMI. The BMI is above average. BMI management plan is completed. BMI Follow-up includes: nutrition counseling, exercise counseling and education provided. Assessment & Plan (05/01/2024 1:00 PM CDT): [...] provided. Assessment & Plan (06/02/2023 8:27 AM PIECE DYEING MACHINE TENDER): Discussed the patients BMI: The BMI is [...] 12/20/2022 Assessment & Plan (05/07/2024 8:55 PM PIECE DYEING MACHINE TENDER): Patient is on medication for her rheumatoid arthritis managed by [facility] Assessment & Plan (01/22/2024 8:13 PM CDT): Medications from [facility]ology contribute to her immunosuppressive state. Assessment & Plan (09/06/2023 9:41 AM PIECE DYEING MACHINE TENDER): Medications are managed by [facility] for her rheumatoid arthritis Assessment & Plan (04/06/2023 7:44 PM CDT): Managed by [facility]. Currently on Plaquenil methotrexate Orencia folic acid. Pelvic lipomatosis 07/18/2022 Assessment & Plan (04/21/2024 [...] She has had evaluation by Urology at [facility] and has been told there [...] capacity. Assessment & Plan (09/06/2023 9:41 AM PIECE DYEING MACHINE TENDER): Continue per . She did not tolerate [...] Pate. Assessment & Plan (07/18/2022 10:20 AM PIECE DYEING MACHINE TENDER): CT revealed pelvic lipomatosis that is compressing [...] 02/11/2022 Assessment & Plan (09/06/2023 9:41 AM PIECE DYEING MACHINE TENDER): No change. Dysfunction of both eustachian tubes 02/11/2022 Myalgia, lower leg 01/11/2022 PLMD (periodic limb movement disorder) Assessment & Plan (08/02/2024 11:49 AM PIECE DYEING MACHINE TENDER): Asymptomatic Assessment & Plan (06/22/2022 10:31 AM PIECE DYEING MACHINE TENDER): Will continue Requip 1 mg nightly Assessment [...] bedtime. Assessment & Plan (07/13/2021 11:25 AM PIECE DYEING MACHINE TENDER): Due to the patient stating that she [...] 06/04/2020 Assessment & Plan (08/23/2024 10:16 AM PIECE DYEING MACHINE TENDER): Hepatitis negative 06/2020 Tspot negative 06/2020 Continue routine lab monitoring Maintain routine eye exams throughout the duration of taking hydroxychloroquine Assessment & Plan (07/30/2024 8:24 AM PIECE DYEING MACHINE TENDER): Hepatitis negative 06/2020 Tspot negative 06/2020 Continue [...] hydroxychloroquine Assessment & Plan (09/01/2023 8:34 AM PIECE DYEING MACHINE TENDER): Hepatitis negative 06/2020 Tspot negative 06/2020 Continue routine lab monitoring Maintain routine eye exams throughout the duration of taking hydroxychloroquine Assessment & Plan (06/29/2023 2:19 PM PIECE DYEING MACHINE TENDER): Hepatitis negative 06/2020 Tspot negative 06/2020 Continue [...] hydroxychloroquine Assessment & Plan (07/14/2022 2:58 PM PIECE DYEING MACHINE TENDER): Hepatitis negative 06/2020 Tspot negative 06/2020 Continue routine lab monitoring Maintain routine eye exams throughout the duration of taking hydroxychloroquine Assessment & Plan (06/03/2022 9:58 AM PIECE DYEING MACHINE TENDER): Hepatitis negative 06/2020 Tspot negative 06/2020 Continue [...] hydroxychloroquine Assessment & Plan (09/03/2021 8:29 AM PIECE DYEING MACHINE TENDER): Hepatitis negative 06/2020 Tspot negative 06/2020 Continue routine lab monitoring Maintain routine eye exams throughout the duration of taking hydroxychloroquine Assessment & Plan (06/03/2021 4:17 PM PIECE DYEING MACHINE TENDER): Hepatitis negative 06/2020 Tspot negative 06/2020 Continue [...] hydroxychloroquine Assessment & Plan (09/02/2020 1:16 PM PIECE DYEING MACHINE TENDER): Hepatitis negative 06/2020 Tspot negative 06/2020 Continue routine lab monitoring Maintain routine eye exams throughout the duration of taking hydroxychloroquine Assessment & Plan (07/09/2020 12:23 PM PIECE DYEING MACHINE TENDER): Hepatitis negative 06/2020 Tspot negative 06/2020 Continue routine lab monitoring Maintain routine eye exams throughout the duration of taking hydroxychloroquine Drug-induced constipation 08/13/2019 Assessment & Plan (05/07/2024 8:54 PM PIECE DYEING MACHINE TENDER): Patient with chronic constipation. Has been on [...] linzess Assessment & Plan (08/13/2019 8:57 AM PIECE DYEING MACHINE TENDER): On Movantik with Dr. Soto Herpes zoster without complication 12/13/2018 Assessment & Plan (12/23/2018 10:18 PM CDT): Valtex to pharmacy. She has had shingles in the past. Pre-diabetes 10/31/2018 Assessment & Plan (05/07/2024 8:55 PM PIECE DYEING MACHINE TENDER): Pre-diabetes/hyperglycemia is a precursor to Dm. Stressed [...] diabetes. Assessment & Plan (09/06/2023 9:40 AM PIECE DYEING MACHINE TENDER): Pre-diabetes/hyperglycemia is a precursor to Dm. Stressed [...] diabetes. Assessment & Plan (09/11/2021 11:22 PM PIECE DYEING MACHINE TENDER): Pre-diabetes/hyperglycemia is a precursor to Dm. Stressed importance of working on diet (decrease your simple sugars and one carbohydrate with each meal) and increase you exercise to achieve weight loss and this will help prevent you from progressing to diabetes. Assessment & Plan (05/29/2021 8:18 PM PIECE DYEING MACHINE TENDER): Pre-diabetes/hyperglycemia is a precursor to Dm. Stressed [...] diabetes. Assessment & Plan (08/31/2020 9:34 AM PIECE DYEING MACHINE TENDER): Pre-diabetes is a precursor to Dm. Stressed [...] diabetes. Assessment & Plan (08/13/2019 9:00 AM PIECE DYEING MACHINE TENDER): This is a significant, separately identifiable problem [...] 10/31/2018 Assessment & Plan (05/07/2024 8:54 PM PIECE DYEING MACHINE TENDER): Depression symptoms are stable with Wellbutrin XL 150 Cymbalta 60 b.i.d. Assessment & Plan (04/21/2024 8:50 PM CDT): Depression symptoms are stable with the Wellbutrin XL 150 and Cymbalta 60 b.i.d. Assessment & Plan (01/22/2024 8:11 PM CDT): Depression symptoms are stable with Wellbutrin and Cymbalta Assessment & Plan (09/06/2023 9:40 AM PIECE DYEING MACHINE TENDER): Depression is stable with Wellbutrin and Cymbalta Assessment & Plan (08/03/2023 8:31 AM PIECE DYEING MACHINE TENDER): Stable with Cymbalta 60 and Wellbutrin XL [...] Cymbalta Assessment & Plan (09/11/2021 11:26 PM PIECE DYEING MACHINE TENDER): Continue Wellbutrin and Cymbalta Assessment & Plan (05/29/2021 8:22 PM PIECE DYEING MACHINE TENDER): Continue Wellbutrin and Cymbalta Assessment & Plan (05/24/2021 10:39 AM PIECE DYEING MACHINE TENDER): Continue Wellbutrin and Cymbalta Assessment & Plan (12/24/2020 9:07 AM CDT): Continue wellbutrin and cymbalta Assessment & Plan (08/31/2020 9:35 AM PIECE DYEING MACHINE TENDER): Continue wellbutrin and cymbalta Assessment & Plan (02/18/2020 9:47 PM CDT): Stable with the Cymbalata Assessment & Plan (08/13/2019 8:59 AM PIECE DYEING MACHINE TENDER): Stable with Cymbalta and Wellbutrin Assessment & [...] regimen. Med list updated to reflect the [id number] one daily and Prozac 40mg. Mixed hyperlipidemia 03/29/2018 Assessment & Plan (05/07/2024 8:54 PM PIECE DYEING MACHINE TENDER): Encouraged patient to follow low fat/low chol [...] statin Assessment & Plan (09/06/2023 9:42 AM PIECE DYEING MACHINE TENDER): Encouraged patient to follow low fat/low chol [...] statin Assessment & Plan (09/11/2021 11:26 PM PIECE DYEING MACHINE TENDER): Encouraged patient to follow low fat/low chol diet like the Mediterranean diet. Increase good fats in the diet. Increase exercise. Monitor labs as needed. Continue statin Assessment & Plan (05/29/2021 8:22 PM PIECE DYEING MACHINE TENDER): Encouraged patient to follow fat/low chol diet like the Mediterranean diet. Increase good fats in the diet. Increase exercise. Monitor labs as needed. Continue statin Assessment & Plan (05/24/2021 10:39 AM PIECE DYEING MACHINE TENDER): Encouraged patient to follow fat/low chol diet like the Mediterranean diet. Increase good fats in the diet. Increase exercise. Monitor labs as needed. Continue statin Assessment & Plan (12/24/2020 9:07 AM CDT): Encouraged patient to follow fat/low chol diet like the Mediterranean diet. Increase good fats in the diet. Increase exercise. Monitor labs as needed. Continue statin Assessment & Plan (08/31/2020 9:34 AM PIECE DYEING MACHINE TENDER): Encouraged patient to follow fat/low chol diet like the Mediterranean diet. Increase good fats in the diet. Increase exercise. Monitor labs as needed. Continue statin Assessment & Plan (02/18/2020 9:46 PM CDT): Encouraged patient to continue low fat/low chol diet. Continue exercise. Increase good fats in the diet. Monitor labs as needed. Assessment & Plan (08/13/2019 8:59 AM PIECE DYEING MACHINE TENDER): Encouraged patient to continue low fat/low chol [...] future Assessment & Plan (09/06/2023 9:40 AM PIECE DYEING MACHINE TENDER): Continue PPI Assessment & Plan (04/06/2023 7:36 PM CDT): Continue PPI p.r.n. Assessment & Plan (01/20/2023 8:13 PM CDT): Continue PPI Assessment & Plan (09/12/2022 6:13 PM CDT): Continue PPI p.r.n. Assessment & Plan (06/03/2022 3:40 PM PIECE DYEING MACHINE TENDER): Pyrosis poorly controlled on Nexium. Pt has [...] PPI Assessment & Plan (09/11/2021 11:26 PM PIECE DYEING MACHINE TENDER): Continue PPI Assessment & Plan (12/24/2020 9:05 AM CDT): Continue PPI Assessment & Plan (02/18/2020 9:45 PM CDT): Continue PPI. Saw Dr. Linton for increased GERD sxs. If persist, encouraged to followup again with Dr. Linton. Assessment & Plan (08/13/2019 8:58 AM PIECE DYEING MACHINE TENDER): Stable with PPI Assessment & Plan (04/29/2019 [...] exertion) Assessment & Plan (06/22/2022 10:30 AM PIECE DYEING MACHINE TENDER): Patient is not currently using inhalers. She [...] 10/14/2015 Assessment & Plan (08/02/2024 11:49 AM PIECE DYEING MACHINE TENDER): Due to the patient stating the pressure [...] readjusted. She denied need for supplies. [facility] Assessment & Plan (05/07/2024 8:55 PM PIECE DYEING MACHINE TENDER): Continue with CPAP. Assessment & Plan (04/21/2024 8:49 PM CDT): Continue per Dr. Dunn. Has all her needed supplies for CPAP which she is using every night. Continue with Requip 0.5 mg HS for restless leg Assessment & Plan (01/22/2024 8:08 PM CDT): Continue CPAP per Dr. Dunn Assessment & Plan (09/06/2023 9:40 AM PIECE DYEING MACHINE TENDER): Continue CPAP Assessment & Plan (06/21/2023 10:14 AM PIECE DYEING MACHINE TENDER): Patient continue to wear her CPAP at [...] CPAP Assessment & Plan (06/22/2022 10:31 AM PIECE DYEING MACHINE TENDER): Will continue CPAP therapy at an auto titrating range of 7-20 cm water pressure. Denied need for supplies. DME [facility] patient Assessment & Plan (05/02/2022 9:15 PM [...] water pressure. Patient denied need for supplies. [employer] [facility]. Patient is benefitting CPAP Assessment & Plan (09/11/2021 11:22 PM PIECE DYEING MACHINE TENDER): Continue CPAP. Patient has all needed supplies. Assessment & Plan (07/13/2021 11:27 AM PIECE DYEING MACHINE TENDER): Due to the patient stating she does not have enough pressure in her machine, I have increased the pressure to 13 cm water pressure. The patient denied need for for supplies. DME [employer] [facility]. Have also ordered a new smart card set at 13 cm water pressure. Benefitting from CPAP therapy Assessment & Plan (05/29/2021 8:14 PM PIECE DYEING MACHINE TENDER): Continue CPAP. Assessment & Plan (02/17/2021 11:09 AM CDT): The patient continues to be compliant with her CPAP at 8 cm water pressure. She has developed worsening daytime hypersomnia. She also has morning headaches and dry mouth. I have recommended proceeding with a CPAP titration study starting at 8 cm water pressure. Her DME is [facility]. Assessment & Plan (12/24/2020 9:04 AM CDT): Continue CPAP. Would like to see Pulm/sleep at [facility] alireza as difficulty getting in consistently at [facility] and most of her care is now [facility] Assessment & Plan (02/18/2020 9:44 PM CDT): Continue CPAP Assessment & Plan (08/13/2019 8:46 AM PIECE DYEING MACHINE TENDER): Using the CPAP. Has equipment as needed. [...] 5.6 x 5.1 x 4.6cm mass unchanged. Seropositive rheumatoid arthritis of multiple si marleny [...] examination. Assessment & Plan (08/23/2024 12:54 PM PIECE DYEING MACHINE TENDER): Moderate cdai with report of increasing pain, [...] needed. Assessment & Plan (07/30/2024 11:22 AM PIECE DYEING MACHINE TENDER): Moderate cdai with report of increased morning [...] with labs near her home ([facility] in [place]), but the following month will need to plan for an in person visit. She expressed understanding and agreement with this plan. Continue methotrexate 20 mg weekly, folic acid 2 mg daily, and hydroxychloroquine 200 mg BID. Labs today as below. Assessment & Plan (05/07/2024 8:55 PM PIECE DYEING MACHINE TENDER): Managed by [facility]. Currently on Plaquenil and methotrexate and Orencia folic acid Mobic and gabapentin. Stressed she needs to be in contact with her acid bath mixer on when and which medicines to stop [...] needed. Assessment & Plan (09/06/2023 9:42 AM PIECE DYEING MACHINE TENDER): Rheumatoid arthritis is managed by [facility]. Currently on Plaquenil methotrexate Orencia and folic acid Assessment & Plan (09/01/2023 3:39 PM PIECE DYEING MACHINE TENDER): Overall stable without notable synovitis and no inflammatory sounding pain. Will continue methotrexate 20 mg weekly, folic acid 2 mg daily, hydroxychloroquine 200 mg BID, and Orencia and monitor. Labs today as below. Follow up in 3 months or sooner as needed. Assessment & Plan (08/03/2023 8:28 AM PIECE DYEING MACHINE TENDER): Continue with rheumatology. Assessment & Plan (06/30/2023 12:43 PM PIECE DYEING MACHINE TENDER): Overall stable without notable synovitis and no inflammatory sounding pain. Will continue methotrexate 20 mg weekly, folic acid 2 mg daily, hydroxychloroquine 200 mg BID, and Orencia and monitor. Labs today as below. Assessment & Plan (06/02/2023 4:49 PM PIECE DYEING MACHINE TENDER): Continue per Rheumatology Assessment & Plan (04/06/2023 7:35 PM CDT): Continue per Rheumatology. She has been in discussion with them on what medications to stop prior to her knee surgery. She states she was told to take all of her medicines accept the Orencia. Assessment & Plan (01/20/2023 8:12 PM CDT): Continue per Rheumatology [facility] Assessment & Plan (01/13/2023 3:42 [...] Plan (09/12/2022 6:06 PM CDT): Continue with [facility] Assessment & Plan (07/15/2022 1:41 PM PIECE DYEING MACHINE TENDER): Low cdai. Significantly improved after IM triamcinolone [...] needed. Assessment & Plan (06/03/2022 3:37 PM PIECE DYEING MACHINE TENDER): High cdai. Previously felt well controlled with current regimen. Due to burden of disease will give patient a triamcinolone injection. Patient made aware of SE of steroids including but not limited to HTN, increased blood glucose, cataracts, glaucoma, AVN, and osteoporosis with oysterman use. Should she flare again shortly after [...] (01/23/2022 4:57 PM CDT): Continue management per [facility] Assessment & Plan (12/07/2021 9:02 AM CDT): Low cdai. Denies inflammatory sounding joint pain. Continue methotrexate 25 mg weekly, folic acid to 2 mg daily, Rinvoq 15 mg daily, hydroxychloroquine 200 mg BID, and cyclobenzaprine 5 mg qhs and monitor. Labs today as below. Plan for follow up in 3 months or sooner as needed. Assessment & Plan (09/11/2021 11:14 PM PIECE DYEING MACHINE TENDER): Continue per [facility] Assessment & Plan (09/03/2021 11:25 AM PIECE DYEING MACHINE TENDER): cdai = 12. Pt suspects increased joint [...] needed. Assessment & Plan (06/04/2021 10:25 AM PIECE DYEING MACHINE TENDER): Low cdai. Denies inflammatory sounding pain at present. Will plan to continue methotrexate 25 mg weekly, folic acid to 2 mg daily, Rinvoq 15 mg daily, hydroxychloroquine 200 mg BID, and cyclobenzaprine 5 mg qhs and monitor. Labs today as below. Plan for follow up in 3 months or sooner as needed. Assessment & Plan (05/31/2021 9:15 PM PIECE DYEING MACHINE TENDER): Continue per Rheumatology Assessment & Plan (05/29/2021 8:13 PM PIECE DYEING MACHINE TENDER): Continue per Rheumatology. Currently on Plaquenil methotrexate and folic acid. Assessment & Plan (05/24/2021 10:38 AM PIECE DYEING MACHINE TENDER): Continue per Rheumatology Assessment & Plan (03/05/2021 [...] needed. Assessment & Plan (09/03/2020 12:22 PM PIECE DYEING MACHINE TENDER): Low cdai. Continues to feel improved with [...] needed. Assessment & Plan (08/31/2020 9:34 AM PIECE DYEING MACHINE TENDER): Continue per [facility] Assessment & Plan (07/09/2020 12:22 PM PIECE DYEING MACHINE TENDER): 64yoF with a h/o seropositive RA diagnosed [...] time. Assessment & Plan (06/04/2020 11:14 AM PIECE DYEING MACHINE TENDER): 64yoF with a h/o seropositive RA diagnosed [...] needed. Assessment & Plan (05/14/2020 9:33 PM PIECE DYEING MACHINE TENDER): Refer to new [employer] as Dr. Soto has . Assessment & Plan (02/18/2020 9:46 PM CDT): Continue per Rheum Assessment & Plan (08/13/2019 8:59 AM PIECE DYEING MACHINE TENDER): Continue per Dr. Soto Assessment & Plan [...] of her osteoporosis, recommended evaluation by the [facility], unfortunately their first available appt was in November 2024. Recommended today that she check with [facility] Oste[facility] (at [facility]) to see how far out they are scheduling new patients, though she does not like this option due to distance from her house. Assessment & Plan (09/06/2023 9:40 AM PIECE DYEING MACHINE TENDER): Managed by [facility]. Per patient they are making a referral to bone metabolism at [facility] she has not seen significant improvement with the Forteo or the Reclast. Assessment & Plan (09/01/2023 3:43 PM PIECE DYEING MACHINE TENDER): DEXA: Lspine BMD 0.809 Tscore -2.2, L [...] of her osteoporosis, recommend evaluation by the [facility], provided contact info for Dr. Castillo. Pt in agreement with plan. Assessment & Plan (06/30/2023 12:49 PM PIECE DYEING MACHINE TENDER): DEXA: Lspine BMD 0.809 Tscore -2.2, L [...] PM CDT): Continue to monitor. Managed by [facility]. Patient is on Reclast calcium vitamin-D [...] exercise Assessment & Plan (07/15/2022 1:42 PM PIECE DYEING MACHINE TENDER): 01/27/2021 DEXA: Lspine -1.8, L femoral neck -1.9, L total hip -1.2, R femoral neck -2.3, R total hip -1.0, FRAX major 32% and hip 7%. Received Reclast 07/2021. Continue yearly Reclast, scheduled for 07/22 Assessment & Plan (06/03/2022 3:38 PM PIECE DYEING MACHINE TENDER): 01/27/2021 DEXA: Lspine -1.8, L femoral neck [...] Plan (01/23/2022 5:02 PM CDT): Managed by [facility] currently on Reclast calcium and vitamin-D Assessment & Plan (12/07/2021 9:04 AM CDT): 01/27/2021 DEXA: Lspine -1.8, L femoral neck -1.9, L total hip -1.2, R femoral neck -2.3, R total hip -1.0, FRAX major 32% and hip 7%. Received Reclast 07/2021. Continue yearly Reclast. Assessment & Plan (09/03/2021 11:26 AM PIECE DYEING MACHINE TENDER): 01/27/2021 DEXA: Lspine -1.8, L femoral neck -1.9, L total hip -1.2, R femoral neck -2.3, R total hip -1.0, FRAX major 32% and hip 7%. Received Reclast 07/2021. Continue yearly reclast and daily vitamin D-calcium supplement. Assessment & Plan (06/04/2021 10:27 AM PIECE DYEING MACHINE TENDER): 01/27/2021 DEXA: Lspine -1.8, L femoral neck [...] provided today, she will schedule at [facility] Assessment & Plan (12/24/2020 9:06 AM CDT): Continue Reclast thru Rheum Continue calcium, vitD and exercise Assessment & Plan (12/03/2020 10:45 AM CDT): Vitamin D level was 68. Received Reclast 07/09/2020. Last DEXA per available records was 01/31/2019, due this summer - order provided today, she will schedule at [facility] Assessment & Plan (09/03/2020 12:23 PM PIECE DYEING MACHINE TENDER): Vitamin D level was 68. Received Reclast 07/09/2020. Last DEXA per available records was 01/31/2019, due this summer. Assessment & Plan (07/09/2020 12:23 PM PIECE DYEING MACHINE TENDER): Overdue for Reclast, last infusion was 03/28/2019, will receive infusion today. Vitamin D level was 68 Last DEXA per available records was 01/31/2019 Assessment & Plan (06/04/2020 11:15 AM PIECE DYEING MACHINE TENDER): Overdue for Reclast, last infusion was 03/28/2019, will check benefits. Recheck vitamin D level now. Last DEXA per available records was 01/31/2019 Assessment & Plan (02/18/2020 9:46 PM CDT): Calcium, vit D and exercise. Continue to monitor DXA Assessment & Plan (08/13/2019 8:58 AM PIECE DYEING MACHINE TENDER): Continue with Calcium, Vit D and Exercise. Recheck DXA iin Fall 2019 with mammogram Resolved Problems Problem Noted Date Diagnosed Date Resolved Date Encounter for pre-operative examination 05/07/2024 10/09/2024 Assessment & Plan (05/07/2024 8:57 PM PIECE DYEING MACHINE TENDER): I have examined this patient and ordered [...] elective surgery with general and/or regional anesthesia. Chronic pain of right knee 05/07/2024 1 [...] Krishnamurthy. 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 Daniels Stressed importance of very close follow-up BMI 37.0-37.9, adult 09/06/2023 024 Assessment & Plan (10/13/2023 7:38 AM CDT): Discussed the patient's BMI. The BMI is above average. BMI management plan is completed. BMI Follow-up includes: nutrition counseling, exercise counseling and education provided. Assessment & Plan (09/06/2023 9:42 AM PIECE DYEING MACHINE TENDER): Discussed the patient's BMI. The BMI is above average. BMI management plan is completed. BMI Follow-up includes: nutrition counseling, exercise counseling and education provided. Hyperglycemia 09/06/2023 09/06/2023 Positive depression screening 09/06/2023 09/06/2023 Annual physical exam 09/06/2023 024 Assessment & Plan (09/06/2023 9:43 AM PIECE DYEING MACHINE TENDER): Encouraged healthy lifestyle, good nutrition and exercise. Encouraged Calcium and Vitamin D and weight bearing exercise for bone health. Reviewed immunizations Reviewed age appropirate screenings. Orthopedic aftercare 08/09/2023 025 Right knee pain 08/09/2023 09/06/2023 Sinus congestion 08/07/2023 09/06/2023 Assessment & Plan (08/07/2023 7:54 PM PIECE DYEING MACHINE TENDER): Persistent sinusitis symptoms along with cough. Will start doxy b.i.d.. Start antihistamine (Claritin OR Zyrtec), Mucinex 12hour and Steroid nasal spray (Flonase). Push fluids. Rest. Supportive care. If sxs worsen or don\'t improve, pt is to followup in the office. Acute cough 08/07/2023 01/22/2024 Assessment & Plan (08/07/2023 7:55 PM PIECE DYEING MACHINE TENDER): Persistent sinusitis symptoms along with cough. Will start doxy b.i.d.. Start antihistamine (Claritin OR Zyrtec), Mucinex 12hour and Steroid nasal spray (Flonase). Push fluids. Rest. Supportive care. If sxs worsen or don\'t improve, pt is to followup in the office. BMI 35.0-35.9,adult 08/03/2023 09/06/19 24 Assessment & Plan (08/07/2023 7:51 PM PIECE DYEING MACHINE TENDER): Discussed the patient's BMI. The BMI is above average. BMI management plan is completed. BMI Follow-up includes: nutrition counseling, exercise counseling and education provided. Assessment & Plan (08/03/2023 8:29 AM PIECE DYEING MACHINE TENDER): Discussed the patient's BMI. The BMI is [...] 01/22/2024 Assessment & Plan (06/02/2023 4:57 PM PIECE DYEING MACHINE TENDER): Later in the day received critical lab call for a CO2 value at 42. My staff contacted the patient and she was instructed to go to the ER for further evaluation to determine underlying cause. She states throughout the day she has noticed a little bit more shortness of breath. She plans to have her brother drive her to [facility]. Charge nurse was notified of the arrival [...] surgery. Will defer cardiac clearance to her web marketing assistant. Her chronic medical conditions are stable. [facility] as instructed her to hold the [...] Dr. Ge Sexton on May 04 at [facility]. Need for vaccination for Strep pneumoniae 01/20/2023 [...] symptoms worsen or do not respond to [id number] allergy medicines within the next week she may call and will consider antibiotic. Left knee pain 09/13/2022 09/06/2023 Right knee pain 09/13/2022 10/09/2024 BMI 39.0-39.9,adult 08/23/2022 11/09/19 23 Assessment & Plan (10/25/2022 3:32 PM CDT): Discussed the patient's BMI. The BMI is above average. BMI management plan is completed. BMI Follow-up includes: nutrition counseling, exercise counseling and education provided. Assessment & Plan (08/23/2022 2:19 PM PIECE DYEING MACHINE TENDER): Discussed the patient's BMI. The BMI is [...] plans Assessment & Plan (07/18/2022 10:20 AM PIECE DYEING MACHINE TENDER): CT revealed pelvic lipomatosis that is compressing [...] 12/20/2022 Assessment & Plan (07/18/2022 10:21 AM PIECE DYEING MACHINE TENDER): CT revealed pelvic lipomatosis that is compressing [...] plan, Assessment & Plan (07/08/2022 12:33 PM PIECE DYEING MACHINE TENDER): Patient has had dysuria. She was started [...] 07/08/202204/06 Assessment & Plan (07/18/2022 10:21 AM PIECE DYEING MACHINE TENDER): CT revealed pelvic lipomatosis that is compressing [...] plan, Assessment & Plan (07/08/2022 5:58 PM PIECE DYEING MACHINE TENDER): Images from the original note were not [...] STAT abd/pelvis with and without contrast at [facility]. Check labs STAT. STAT CT Abd/pelvis without [...] 09/06/2023 Assessment & Plan (07/08/2022 12:33 PM PIECE DYEING MACHINE TENDER): Patient has had dysuria. She was started [...] STAT abd/pelvis with and without contrast at [facility]. Check labs STAT. Assessment & Plan (07/06/2022 8:50 AM PIECE DYEING MACHINE TENDER): Pt presents with dysuria. Urine dip completed. [...] 35.00-39.99. Assessment & Plan (07/18/2022 10:23 AM PIECE DYEING MACHINE TENDER): Discussed the patient's BMI. The BMI is above average. BMI management plan is completed. BMI Follow-up includes: nutrition counseling, exercise counseling and education provided. Assessment & Plan (07/08/2022 12:30 PM PIECE DYEING MACHINE TENDER): Discussed the patient's BMI. The BMI is [...] She has received multiple injections from her acid bath mixer regarding her knee but yesterday when she [...] 01/23/2022 Assessment & Plan (09/11/2021 11:28 PM PIECE DYEING MACHINE TENDER): Patient has never had a full skin exam. She has quite a few lesions scattered and would benefit from a full exam. Will make referral Annual physical exam 09/11/2021 Assessment & Plan (09/11/2021 11:28 PM PIECE DYEING MACHINE TENDER): Encouraged healthy lifestyle, good nutrition and exercise. Encouraged Calcium and Vitamin D and weight bearing exercise for bone health. Reviewed immunizations Reviewed age appropirate screenings. Cough 08/13/2021 01/23/2022 Assessment & Plan (08/13/2021 3:43 PM PIECE DYEING MACHINE TENDER): Patient to presume positive COVID/FLU until results are available and plan to self isolate for up to 10 days from the onset of sxs. Check COVID/FLU test thru [facility] collection site in [place]. Let pt know the newest CDC recommendations [...] future. Assessment & Plan (07/13/2021 11:28 AM PIECE DYEING MACHINE TENDER): I have ordered the patient Claritin 10 [...] provided. Assessment & Plan (09/11/2021 11:27 PM PIECE DYEING MACHINE TENDER): Obesity is unchanged. Discussed the patient's BMI. The BMI is above average. BMI management plan is completed. BMI Follow-up includes: nutrition counseling, exercise counseling and education provided. Assessment & Plan (05/29/2021 8:24 PM PIECE DYEING MACHINE TENDER): Obesity is unchanged. Discussed the patient's BMI. The BMI is above average. BMI management plan is completed. BMI Follow-up includes: nutrition counseling, exercise counseling and education provided. Assessment & Plan (05/12/2021 1:26 PM PIECE DYEING MACHINE TENDER): Obesity is unchanged. Discussed the patient's BMI. The BMI is above average. BMI management plan is completed. BMI Follow-up includes: nutrition counseling, exercise counseling and education provided. BMI 37.0-37.9, adult 05/12/2021 022 Assessment & Plan (09/11/2021 11:27 PM PIECE DYEING MACHINE TENDER): Obesity is unchanged. Discussed the patient's BMI. The BMI is above average. BMI management plan is completed. BMI Follow-up includes: nutrition counseling, exercise counseling and education provided. Assessment & Plan (05/29/2021 8:24 PM PIECE DYEING MACHINE TENDER): Obesity is unchanged. Discussed the patient's BMI. The BMI is above average. BMI management plan is completed. BMI Follow-up includes: nutrition counseling, exercise counseling and education provided. Assessment & Plan (05/12/2021 1:26 PM PIECE DYEING MACHINE TENDER): Obesity is unchanged. Discussed the patient's BMI. The BMI is above average. BMI management plan is completed. BMI Follow-up includes: nutrition counseling, exercise counseling and education provided. Tinea corporis 04/14/2021 01/23/2022 Assessment & Plan (05/31/2021 9:15 PM PIECE DYEING MACHINE TENDER): Improving with Lotrisone. Keep the area clean and dry Assessment & Plan (05/29/2021 8:24 PM PIECE DYEING MACHINE TENDER): Lotrisone to pharmacy. Encouraged her to keep the area clean and dry use her dryer to dry the skin before applying the cream. She is to call if symptoms worsen or do not resolve. Need for immunization against influenza 04/14/2021 05/31/2021 Assessment & Plan (05/29/2021 8:24 PM PIECE DYEING MACHINE TENDER): Fluid updated in the office Medicare annual wellness visit, subsequent 04/13/2021 05/31/2021 Assessment & Plan (05/29/2021 8:23 PM PIECE DYEING MACHINE TENDER): Encouraged healthy lifestyle, good nutrition and exercise. [...] 12/30/2020 Assessment & Plan (08/31/2020 9:31 AM PIECE DYEING MACHINE TENDER): Error. This should be right calf but PT order sent and corrected so unable to remove. Fatigue 08/31/2020 09/06/2023 Assessment & Plan (04/06/2023 7:43 PM CDT): Probably multifactorial. Check labs and followup to re-evaluate Assessment & Plan (05/02/2022 9:16 PM CDT): Probably multifactorial. Check labs and followup to re-evaluate Assessment & Plan (08/31/2020 9:34 AM PIECE DYEING MACHINE TENDER): Probably multifactorial. Check labs and followup to re-evaluate Pain in both lower extremities 08/31/2020 09/06/2023 Assessment & Plan (09/01/2023 3:41 PM PIECE DYEING MACHINE TENDER): Cramping lower leg pain has resolved with [...] 021 Assessment & Plan (08/31/2020 9:33 AM PIECE DYEING MACHINE TENDER): Obesity is unchanged. Discussed the patient's BMI. The BMI is above average. BMI management plan is completed. BMI Follow-up includes: nutrition counseling, exercise counseling and education provided. Pain of right calf 08/26/2020 Assessment & Plan (08/31/2020 9:31 AM PIECE DYEING MACHINE TENDER): This is a significant, separately identifiable problem that was evaluated and managed on the same day as the wellness exam Unable to rule out DVT with her calf pain/sxs. Check STAT Venous doppler. Recvd Results and discussed with patient via phone. Negative for DVT. Recommend PT. Prefers [place] Annual physical exam 08/24/2020 021 Assessment & Plan (08/31/2020 9:34 AM PIECE DYEING MACHINE TENDER): Encouraged healthy lifestyle, good nutrition and exercise. Encouraged Calcium and Vitamin D and weight bearing exercise for bone health. Reviewed immunizations Reviewed age appropirate screenings. Dizziness 05/07/2020 09/06/2023 Assessment & Plan (05/14/2020 9:35 PM PIECE DYEING MACHINE TENDER): Suspect the dizziness is inner ear related. [...] imaging. Assessment & Plan (05/07/2020 1:49 PM PIECE DYEING MACHINE TENDER): Declines to report to er now 'I [...] 05/14/2020 Assessment & Plan (05/07/2020 1:49 PM PIECE DYEING MACHINE TENDER): Declines to report to er now 'I [...] 12/30/2020 Assessment & Plan (05/07/2020 1:49 PM PIECE DYEING MACHINE TENDER): Declines to report to er now 'I [...] if worsening Acute otalgia, left 04/03/2020 12/31/19 Assessment & Plan (04/03/2020 11:45 AM CDT): Will start on antibiotics, continue with flonase Advised f/u in 72h if not improving, sooner if worsening Breast cancer screening by mammogram 02/18/2020 04/06/2023 Assessment & Plan (01/20/2023 8:14 PM CDT): Mammogram order provided Assessment & Plan (01/23/2022 5:00 PM CDT): Mammogram order provided Assessment & Plan (05/31/2021 9:15 PM PIECE DYEING MACHINE TENDER): Mammogram order provided Assessment & Plan (02/18/2020 9:47 PM CDT): Mammogram order provided today Medicare annual wellness visit, subsequent 02/15/2020 02/15/2020 Precordial pain 09/04/2019 09/06/2023 Assessment & Plan (08/07/2023 7:50 PM PIECE DYEING MACHINE TENDER): Workup in the hospital. Cardiology states her chest pain is not cardiac related. Will continue to monitor. Today she states it is definitely better Mild intermittent asthma without complication 09/04/1901/23/2022 Assessment & Plan (10/19/2021 10:52 AM CDT): I have ordered a bronchial provocation challenge. The patient has not been formally diagnosed with asthma with this office. Patient will continue with Dulera, singular, and albuterol inhaler. Assessment & Plan (07/13/2021 11:26 AM PIECE DYEING MACHINE TENDER): The patient will continue with Dulera 2 [...] 020 Assessment & Plan (08/13/2019 8:59 AM PIECE DYEING MACHINE TENDER): Encouraged healthy lifestyle, good nutrition and exercise. Encouraged Calcium and Vitamin D and weight bearing exercise for bone health. Reviewed immunizations Reviewed age appropirate screenings. Obesity, morbid, BMI 40.0-49.9 08/13/2019 09/23/2020 Assessment & Plan (08/26/2020 7:10 AM PIECE DYEING MACHINE TENDER): Obesity is unchanged. Discussed the patient's BMI. The BMI is above average. BMI management plan is completed. BMI Follow-up includes: nutrition counseling, exercise counseling and education provided. Assessment & Plan (05/14/2020 9:33 PM PIECE DYEING MACHINE TENDER): Obesity is unchanged. Discussed the patient's BMI. [...] provided. Assessment & Plan (08/13/2019 8:58 AM PIECE DYEING MACHINE TENDER): Obesity is unchanged. Discussed the patient's BMI. [...] change Assessment & Plan (08/13/2019 9:01 AM PIECE DYEING MACHINE TENDER): This is a significant, separately identifiable problem [...] 01/22/2024 Assessment & Plan (09/06/2023 9:42 AM PIECE DYEING MACHINE TENDER): Probably multifactorial. Check labs and followup to re-evaluate Assessment & Plan (09/03/2021 11:28 AM PIECE DYEING MACHINE TENDER): She notes increased fatigue and lack of [...] re-evaluate Assessment & Plan (08/13/2019 9:08 AM PIECE DYEING MACHINE TENDER): Probably multifactorial. Check labs and followup to re-evaluate Check labs prior to next visit BMI 40.0-44.9, adult 08/02/2019 020 Assessment & Plan (08/13/2019 8:57 AM PIECE DYEING MACHINE TENDER): Obesity is unchanged. Discussed the patient's BMI. The BMI is above average. BMI management plan is completed. BMI Follow-up includes: nutrition counseling, exercise counseling and education provided. Assessment & Plan (08/02/2019 7:21 AM PIECE DYEING MACHINE TENDER): Obesity is unchanged. Discussed the patient's BMI. The BMI is above average. BMI management plan is completed. BMI Follow-up includes: nutrition counseling, exercise counseling and education provided. Morbid obesity 08/02/2019 08/13/2019 Assessment & Plan (08/02/2019 7:20 AM PIECE DYEING MACHINE TENDER): Obesity is unchanged. Discussed the patient's BMI. The BMI is above average. BMI management plan is completed. BMI Follow-up includes: nutrition counseling, exercise counseling and education provided. Acute non-recurrent maxillary sinusitis 08/02/2019 08/13/2019 Assessment & Plan (08/02/2019 7:47 AM PIECE DYEING MACHINE TENDER): Start antibiotic, antihistamine, Mucinex and Steroid nasal [...] foot. She is being sent directly to [facility] and they were working her in today. [...] exercise. Otitis of right ear 12/13/2018 12/31/19 Assessment & Plan (05/14/2020 9:33 PM PIECE DYEING MACHINE TENDER): Completed Doxy and steroid. No s/s infection. [...] p.r.n. 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 She is on aspirin and statin Assessment & Plan (12/24/2020 9:03 AM CDT): Sxs stable. On ASA, statin and encouraged daily exercise. Assessment & Plan (02/18/2020 9:43 PM CDT): Continue per cardio. On ASA and statin Assessment & Plan (08/13/2019 8:45 AM PIECE DYEING MACHINE TENDER): Continues with Dr. Alonso salmeron Assessment & Plan (11/01/2018 11:00 PM CDT): Pt sxs well controlled. 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 Continue per cardio Depression 07/16/2018 09/11/2021 Frontal sinusitis 06/26/2018 12/24/2020 Leukopenia 03/29/2018 12/30/2020 Other chronic pain 08/05/2017 3 Chronic seasonal allergic rh initis due to pollen 04/25/2017 12/30/2020 Assessment & Plan (12/24/2020 9:03 AM CDT): Continue current regimen with singulair and otc Assessment & Plan (02/18/2020 9:44 PM CDT): Continue with otc regimen Assessment & Plan (08/13/2019 8:46 AM PIECE DYEING MACHINE TENDER): Continue current regimen Assessment & Plan (11/01/2018 [...] potassium Assessment & Plan (09/11/2021 11:26 PM PIECE DYEING MACHINE TENDER): Bp is stable/in acceptable range for any co-morbidities. Encouraged to limit sodium intake and exercise for weight control. Currently stable without medication Assessment & Plan (05/29/2021 8:19 PM PIECE DYEING MACHINE TENDER): Bp is stable/in acceptable range for any co-morbidities. Encouraged to limit sodium intake and exercise for weight control. Continue Lasix is helping with the swelling and addition. Blood pressure stable Assessment & Plan (05/24/2021 10:38 AM PIECE DYEING MACHINE TENDER): Continue Lasix potassium Assessment & Plan (12/24/2020 9:05 AM CDT): Bp is stable/in acceptable range for any co-morbidities. Encouraged to limit sodium intake and exercise for weight control. Assessment & Plan (08/31/2020 9:32 AM PIECE DYEING MACHINE TENDER): Bp is stable/in acceptable range for any co-morbidities. Encouraged to limit sodium intake and exercise for weight control. Stable with laxis currently Assessment & Plan (02/18/2020 9:44 PM CDT): Bp is stable/in acceptable range for any co-morbidities. Encouraged to limit sodium intake and exercise for weight control. Assessment & Plan (08/13/2019 8:57 AM PIECE DYEING MACHINE TENDER): Bp is stable/in acceptable range for any [...] difficulty pulling them. Recommend finding some on [employer] that fit her calf that she can zip on and off. Showed them to her on Amazon and where to order them. She states she will try to get them. Assessment & Plan (05/31/2021 9:16 PM PIECE DYEING MACHINE TENDER): Improving slowly. May have been due to the Relafen. She is on 60 of Lasix with potassium 10 mEq daily. Continue with current plan. Keep legs elevated. Utilize compressi to improve cleared. on hose. Call if symptoms worsen or do not continue to improve. Assessment & Plan (05/29/2021 8:23 PM PIECE DYEING MACHINE TENDER): Persistent lower extremity edema that has improved [...] CMP. Assessment & Plan (05/24/2021 10:39 AM PIECE DYEING MACHINE TENDER): Patient that her swelling was improving since discharge for over the last day or so it seems to be increasing. Will increase the Lasix to 40mg Start K 10meq daily Recheck labs in 5 days Assessment & Plan (08/31/2020 9:33 AM PIECE DYEING MACHINE TENDER): Continue lasix Palpitations 12/08/2015 12/30/2020 Overview (10/09/2016): Palpitations Other abnormal glucose 11/11/201508/31 Asthma 10/14/2015 12/24/2020 Assessment & Plan (08/13/2019 8:49 AM PIECE DYEING MACHINE TENDER): Continue with current regimen and with Pulmonary Assessment & Plan (11/01/2018 10:53 PM CDT): Currently Stable with regimen. Monitor closely with current allergy season. Followup Dr. Gomez as directed. Menopause 10/14/2015 12/30/2020 Cervical pain (neck) 10/14/2015 023 Osteoarthritis, multiple sites 10/14/2015 10/09/2024 Overview (02/06/2021): 02/2021 Rt knee XR: unremarkable 02/2021 Lt knee XR: Tricompartmental OA, moderate in medial and patellofemoral compartments and mild in lateral compartment. Chondrocalcinosis is noted. Assessment & Plan (08/23/2024 10:16 AM PIECE DYEING MACHINE TENDER): 02/2021 XR L knee with mild to moderate OA, now s/p B TKA. Following with ortho as planned. Assessment & Plan (07/30/2024 11:23 AM PIECE DYEING MACHINE TENDER): 02/2021 XR L knee with mild to [...] March. Assessment & Plan (09/01/2023 3:42 PM PIECE DYEING MACHINE TENDER): 02/2021 XR L knee with mild to moderate OA, R knee negative. Had injections with ortho without benefit, now s/p L TKA. Assessment & Plan (06/30/2023 12:46 PM PIECE DYEING MACHINE TENDER): 02/2021 XR L knee with mild to [...] g/d. Assessment & Plan (07/15/2022 1:41 PM PIECE DYEING MACHINE TENDER): 02/2021 XR L knee with mild to moderate OA, R knee negative. Had injections with ortho with benefit. Unable to afford PT. Can continue Tylenol Arthritis, not to exceed 4 g/d. Assessment & Plan (06/03/2022 9:58 AM PIECE DYEING MACHINE TENDER): 02/2021 XR L knee with mild to [...] evaluation. Assessment & Plan (09/03/2021 11:27 AM PIECE DYEING MACHINE TENDER): XR L knee with mild to moderate [...] able. Assessment & Plan (06/04/2021 10:27 AM PIECE DYEING MACHINE TENDER): XR L knee with mild to moderate [...] above. Assessment & Plan (09/03/2020 12:23 PM PIECE DYEING MACHINE TENDER): 10/27/2017 XR L knee: mild tricompartmental OA. Will continue meloxicam as above. Assessment & Plan (07/09/2020 12:24 PM PIECE DYEING MACHINE TENDER): 10/27/2017 XR L knee: mild tricompartmental OA. Will continue meloxicam as above. In the future may consider trial of PT. Immunizations Immunization Administration Dates Next Due COVID-19 mRNA (Sales [employer]) 0.3 m L (30 mcg) vaccine (12 [...] Preser vative Free, Intramuscular 04/05/2015 Influenza, Unspecified 07/04/2024(Deferr ed: Patient Refused),03/30/2022 PPD TEST 05/11/2023 Pfizer [...] drink = 0.6 oz pur e alcohol) [facility] Utilities Answer Date Recorded In the past 12 months has [employer], [employer], oil, or water [employer] threatened to shut off services in your home? No 05/30/2024 Social Connection and Isolation Panel [NHANES] A nswer Date Recorded In a typical week, how many times do you talk on the phone with family, friends, or neighbors? Twice a week 05/30/20 How often do you get togethe r with friends or relatives? Twice a week 05/30/2024 How often do you attend [facility] or church services? 1 to 4 times per year [...] place to sleep or slept in a retirement (including now)? No 05/27/2023 PHQ-9 Answer Date [...] any time in the past 12 m [facility], were you homeless or living in a retirement (including now)? No 05/30/2024 Personal Safety Answer Date Recorded Have you ever been in or are you currently in a harmful physical or emotional relationship or is someone making you feel afraid or unsafe? Denies 05/30/2024 Comments No Sex and Gender Information Value Date Recorded Sex Assigned at Not on file Legal Sex Female 8:04 PM PIECE DYEING MACHINE TENDER Gender Identity Female 02/15/2020 6:08 PM CDT Sexual Orientation Not on file Last Filed Vital Signs Vital Sign Reading Time Taken Comments Blood Pressure 120/80 10/10/2024 7:40 AM CDT Pulse 77 10/10/2024 7:40 AM CDT Temperature 37.1 C (98.8 F) 10/10/2024 7:40 AM CDT Respiratory Rate 24 09/25/2024 10:54 AM CDT Oxygen Saturation 95% 10/10/2024 7:40 AM CDT Inhaled Oxygen Concentration - - Weight 84.4 kg (186 lb) 10/10/2024 7:40 AM CDT Height 154.9 cm (5' 1 ) 10/10/2024 7:40 AM CDT Body Mass Index 35.14 10/10/2024 7:40 AM CDT Plan of Treatment Not on file Medical Devices Implanted Type Area Last Sawyer Device Identifier Shelf Expiration Date Model / Serial / Lot [employer] Simplex P Radiopaque Full Dose Cement Bone Sterile 6191-1-010 - [id number] Implanted:Qty: 2 on 05/04/2023 by Michael Motta MD at [facility] Bone Cement Left: Knee [employer] 05/03/2025 6191-1-010 / 6191-1-001 / [id number] [employer] Simplex P Radiopaque Full Dose Cement Bone Sterile 6191-1-010 - [id number] Implanted:Qty: 2 on 05/30/2024 by Michael Motta MD at [facility] Bone Cement Right: Patella [employer] [id number] 05/03/2026 6191-1-010 / / [id number] [employer] Persona 14mm 30+ Mm Knee Tibia Taper Extension Stem [id number] - [id number] 4 - [id number] Implanted:Qty: 1 on 05/04/2023 by Michael Motta MD at [facility] Left: Knee [employer] [id number] 02/15/2033 [id number] / [id number]- 14 / [id number] [employer] Persona Cemented Cruciate Retaining Knee Left 7 Narrow Component [id number] - [id number] 1 - [id number] Implanted:Qty: 1 on 05/04/2023 by Michael Motta MD at [facility] Left: Knee [employer] [id number] 10/25/2032 [id number] / 34-1693-682- 01 / [id number] [employer] Baseplate Tibial Knee Cemented Left Fixed Stemmed Persona Size D Tivanium [id number] - [id number] 1 - [id number] Implanted:Qty: 1 on 05/04/2023 by Michael Motta MD at [facility] Left: Knee [employer] [id number] 09/11/2032 [id number] / 13-8621-304- 01 / [id number] [employer] Persona 11mm Knee Left 6-7 C-D Insert Articular Vivacit-E Sterile [id number] - I66-8123-832-6 1 - [id number] Implanted:Qty: 1 on 05/04/2023 by Michael Motta MD at [facility] Left: Knee [employer] [id number] 12/28/2025 [id number] / 24-9266-001- 11 / [id number] [employer] Persona 32mm Knee Component Patellar All Poly Latex Free 02-2239-895-32 - [id number] Implanted:Qty: 1 on 05/04/2023 by Michael Motta MD at [facility] [employer] 12/19/2027 [id number] / / [id number] [employer] Baseplate Tibial Knee Cemented Right Fixed Stemmed Persona Size C Tivanium [id number] - [id number] Implanted:Qty: 1 on 05/30/2024 by Michael Motta MD at [facility] Right: Knee [employer] [id number] 03/22/2033 [id number] / / [id number] [employer] Persona 29mm Knee Component Patellar All Poly Latex Free [id number] - [id number] Implanted:Qty: 1 on 05/30/2024 by Michael Motta MD at [facility] Right: Knee [employer] [id number] 12/18/2028 [id number] / / [id number] [employer] Persona 13mm Cruciate Retain Knee Right 6-7 Cd Insert Articular Latex Free [id number] - [id number] Implanted:Qty: 1 on 05/30/2024 by Michael Motta MD at [facility] Right: Patella [employer] [id number] 05/04/2025 [id number] / / [id number] [employer] Persona Cruciate Retaining Cemented Knee Right 7 Narrow Component [id number] - [id number] Implanted:Qty: 1 on 05/30/2024 by Michael Motta MD at [facility] Right: Knee [employer] [id number] 12/27/2033 [id number] / / [id number] [employer] Persona 14mm 30+ Mm Knee Tibia Taper Extension Stem [id number] - [id number] Implanted:Qty: 1 on 05/30/2024 by Michael Motta MD at [facility] Right: Knee [employer] [id number] 04/11/2034 [id number] / / [id number] Procedures Procedure Name Priority Date/Time Associated Diagnosis Comments SCAN - LABS 10/07/2024 SCREENING MAMMOGRAM BILATERAL W DYLLAN Schedule Routine, [...] Read Routine (OP Routine) 08/29/2024 12:23 PM PIECE DYEING MACHINE TENDER COMPREHENSIVE METABOLIC PANEL Routine 08/23/2024 2:11 PM PIECE DYEING MACHINE TENDER Encounter for medication monitoring CBC WITH AUTO DIFFERENTIAL Routine 08/23/2024 2:11 PM PIECE DYEING MACHINE TENDER Encounter for medication monitoring SCAN - LABS 08/23/2024 VITAMIN B12 Routine 08/02/2024 7:41 AM PIECE DYEING MACHINE TENDER Fatigue, unspecified type LIPID PANEL Routine 08/02/2024 7:41 AM PIECE DYEING MACHINE TENDER Mixed hyperlipidemia HEMOGLOBIN A1C Routine 08/02/2024 7:41 AM PIECE DYEING MACHINE TENDER Pre-diabetes COMPREHENSIVE METABOLIC PANEL Routine 08/02/2024 7:41 AM PIECE DYEING MACHINE TENDER Mixed hyperlipidemia CBC WITH AUTO DIFFERENTIAL Routine 08/02/2024 7:41 AM PIECE DYEING MACHINE TENDER Fatigue, unspecified type TSH Routine 08/02/2024 7:41 AM PIECE DYEING MACHINE TENDER Fatigue, unspecified type ERYTHROCYTE SEDIMENTATION RATE Routine 07/30/2024 2:36 PM PIECE DYEING MACHINE TENDER 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) CRP (ACUTE PHASE) Routine 07/30/2024 2:3 6 PM PIECE DYEING MACHINE TENDER 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) COMPREHENSIVE METABOLIC PANEL Routine 07/30/2024 2:36 PM PIECE DYEING MACHINE TENDER Encounter for medication monitoring CBC WITH AUTO DIFFERENTIAL Routine 07/30/2024 2:36 PM PIECE DYEING MACHINE TENDER Encounter for medication monitoring XR KNEE RIGHT 3 VIEWS Schedule Routine, Read Routine (OP Routine) 07/24/2024 1:35 PM PIECE DYEING MACHINE TENDER Status post total knee replacement using cement, right DEXA AXIAL SKELETON BONE DENSITY 1 OR MORE SITES Schedule Routine, Read Routine (OP Routine) 04/12/2023 8:14 AM CDT COLONOSCOPY Routine 07/27/2021 HEPATITIS C ANTIBODY Routine 06/04/2020 10:29 AM PIECE DYEING MACHINE TENDER Encounter for screening for other viral diseases Chronic fatigue from Last 3 Months or Most Recently Relevant to Health Maintenance Results * SCAN - LABS (10/07/2024) us Alee OSMAN Final Resu lt * Screening Mammogram Bilateral W Dyllan (10/04/2024 11:00 AM CDT) Anatomical Region Laterality Modality Breast Bilateral Mammography Impressions 10/04/2024 11:00 AM CDT No mammographic evidence of malignancy Recommend routine screening mammogram in one year BI-RADS Category 2: Benign Findings us Alee OSMAN IMG MAMMO PROCEDURES Final Result * (ABNORMAL) POC Influenza A/B, COVID-19 antigen (09/25/2024 11:02 AM CDT) Influenza A Ag, POC Positive(A) Negative [facility] Influenza B Ag, POC Negative Negative [facility] COVID-19 Ag POC Presumptive Negative Presumptive Negative, Invalid [facility] Nasal 09/25/2024 11:0 2 AM CDT us Jessica Collins NP POINT OF CARE TEST ORDERABLES Final Result [facility] [address] [id number], [facility] * XR Knee Right 3 Views (09/13/2024 [...] John Sparrow M.D. RB T: Report ID: [id number] Reading Location: [id number] Procedure Note John Sparrow MD - 09/18/2024 [...] John Sparrow M.D. RB T: Report ID: [id number] Reading Location: [id number] Michael Motta MD IMG XR PROCEDURES Final Re sult * (ABNORMAL) CT Abdomen Pelvis W Contrast (08/29/2024 12:23 PM PIECE DYEING MACHINE TENDER) Anatomical Region Laterality Modality Body N/A Computed Tomogra phy Historical Provider IMG CT PROCEDURES Edited Result - Final * CBC with auto differential (08/23/2024 2:11 PM PIECE DYEING MACHINE TENDER) WBC 4.8 3.8 - 10.8 Thousand/u L [...] [facility] Blood 08/23/2024 2:11 PM PIECE DYEING MACHINE TENDER 08/23/2024 2:11 PM PIECE DYEING MACHINE TENDER us Sangita OSMAN LAB BLOOD ORDERABLES Vy l Result [facility] [address] [place] [address] * (ABNORMAL) Comprehensive metabolic panel (08/23/2024 2:11 PM PIECE DYEING MACHINE TENDER) Glucose 188(H) 65 - 99 mg/dL [facility] [...] [facility] Blood 08/23/2024 2:11 PM PIECE DYEING MACHINE TENDER 08/23/2024 2:11 PM PIECE DYEING MACHINE TENDER Sangita OSMAN LAB BLOOD ORDERABLES Vy l Result [facility] [address] [address] * SCAN - LABS (08/23/2024) Alee OSMAN Final Resu lt * (ABNORMAL) CBC with auto differential (08/02/2024 7:41 AM PIECE DYEING MACHINE TENDER) WBC 4.0 3.8 - 10.8 Thousand/u L [...] [facility] Blood 08/02/2024 7:41 AM PIECE DYEING MACHINE TENDER 08/02/2024 7:42 AM PIECE DYEING MACHINE TENDER Alee OSMAN LAB BLOOD ORDERABLES Final Result [facility] [employer] [facility] [address] [place] [address] * TSH (08/02/2024 7:41 AM PIECE DYEING MACHINE TENDER) Pathologist [facility] TSH 1.57 0.40 - 4.50 mIU/L [facility] Blood 08/02/2024 7:41 AM PIECE DYEING MACHINE TENDER 08/02/2024 7:42 AM PIECE DYEING MACHINE TENDER Alee OSMAN LAB BLOOD ORDERABLES Final Result [facility] [address] [place] [address] * Hemoglobin A1c (08/02/2024 7:41 AM PIECE DYEING MACHINE TENDER) Hgb A1C 5.4 <5.7 % of total [facility] Comment: For the purpose of screening for the presence of diabetes: <5.7% Consistent with the absence of diabetes 5.7-6.4% Consistent with increased risk for diabetes (prediabetes) > or =6.5% Consistent with diabetes This assay result is consistent with a decreased risk of diabetes. Currently, no consensus exists regarding use of hemoglobin A1c for diagnosis of diabetes in children. According to [place] Diabetes Association (ADA) guidelines, hemoglobin A1c <7.0% represents optimal control in non- diabetic patients. Different metrics may apply to specific patient populations. Standards of Medical Care in Diabetes(ADA). Blood 08/02/2024 7:41 AM PIECE DYEING MACHINE TENDER 08/02/2024 7:42 AM PIECE DYEING MACHINE TENDER Alee OSMAN LAB BLOOD ORDERABLES Final Result [facility] [address] [address] [place] [address] * Vitamin B12 (08/02/2024 7:41 AM PIECE DYEING MACHINE TENDER) Vitamin B12 349 200 - 1,100 pg/mL [...] will have symptoms. Blood 08/02/2024 7:41 AM PIECE DYEING MACHINE TENDER 08/02/2024 7:42 AM PIECE DYEING MACHINE TENDER Alee OSMAN LAB BLOOD ORDERABLES Final Result [facility] [address] [address] [address] * Lipid panel (08/02/2024 7:41 AM PIECE DYEING MACHINE TENDER) Cholesterol 127 <200 mg/dL [facility] [...] LDL-C. Barry SS et al. ELAINE. 2013;310(19): 9716-8052 (http://education.Libratone/faq/LWL076) Chol/HDL ratio 1.7 <5.0 (calc) [facility] Non-HDL, (LDL+VLDL) 52 <130 mg/dL (calc) [facility] Comment: For patients with diabetes plus 1 major ASCVD risk factor, treating to a non-HDL-C goal of <100 mg/dL (LDL-C of <70 mg/dL) is considered a therapeutic option. Blood 08/02/2024 7:41 AM PIECE DYEING MACHINE TENDER 08/02/2024 7:42 AM PIECE DYEING MACHINE TENDER us Alee OSMAN LAB BLOOD ORDERABLES Final Result [facility] [address] [place] [address] * Comprehensive metabolic panel (08/02/2024 7:41 AM PIECE DYEING MACHINE TENDER) [facility] Glucose 99 65 - 99 mg/dL [...] [facility] Blood 08/02/2024 7:41 AM PIECE DYEING MACHINE TENDER 08/02/2024 7:42 AM PIECE DYEING MACHINE TENDER us Alee OSMAN LAB BLOOD ORDERABLES Final Result [facility] [address] [place] [address] * CBC with auto differential (07/30/2024 2:36 PM PIECE DYEING MACHINE TENDER) WBC 6.4 3.8 - 10.8 Thousand/u L [...] [facility] Blood 07/30/2024 2:36 PM PIECE DYEING MACHINE TENDER 07/30/2024 2:36 PM PIECE DYEING MACHINE TENDER Sangita OSMAN LAB BLOOD ORDERABLES Vy l Result Performing Organization Address [facility] Co de Phone Number [facility] [address] [place] [address] * Erythrocyte sedimentation rate (07/30/2024 2:36 PM PIECE DYEING MACHINE TENDER) Pathologist [facility] Erythrocyte sedimentation rate 11 < OR = 30 mm/h [facility] Blood 07/30/2024 2:36 PM PIECE DYEING MACHINE TENDER 07/30/2024 2:36 PM PIECE DYEING MACHINE TENDER Sangita OSMAN LAB BLOOD ORDERABLES Vy l Result Performing Organization Address [facility] Co de Phone Number [facility] [address] [place] [address] * CRP (acute phase) (07/30/2024 2:36 PM PIECE DYEING MACHINE TENDER) C-RP <3.0 <8.0 mg/L [facility] Blood 07/30/2024 2:36 PM PIECE DYEING MACHINE TENDER 07/30/2024 2:36 PM PIECE DYEING MACHINE TENDER Sangita OSMAN LAB BLOOD ORDERABLES Vy suazo Result [facility] [address] [place] [address] * (ABNORMAL) Comprehensive metabolic panel (07/30/2024 2:36 PM PIECE DYEING MACHINE TENDER) Glucose 115(H) 65 - 99 mg/dL [facility] [...] [facility] Blood 07/30/2024 2:36 PM PIECE DYEING MACHINE TENDER 07/30/2024 2:36 PM PIECE DYEING MACHINE TENDER Sangita OSMAN LAB BLOOD ORDERABLES Vy l Result [facility] [address] [address] [address] * XR Knee Right 3 Views (07/24/2024 1:35 PM PIECE DYEING MACHINE TENDER) Anatomical Region Laterality Modality Lower Extremities, Knee Right Computed Radiography 07/25/2024 7:16 AM PIECE DYEING MACHINE TENDER Narrative 07/25/2024 7:18 AM PIECE DYEING MACHINE TENDER EXAM DESCRIPTION: XR KNEE RIGHT 3 VIEWS [...] Elton Jonas M.D. KR T: Report ID: [id number] Reading Location: [id number] Procedure Note Elton Jonas MD - 07/25/2024 [...] Elton Jonas M.D. KR T: Report ID: [id number] Reading Location: [place] [id number] Result [facility] Michael Motta MD IMG XR PROCEDURES Final Re sult * (ABNORMAL) Dexa Axial Skeleton Bone Density 1 or 2 Site (04/12/2023 8:14 AM CDT) Anatomical Region Laterality Modality Body N/A Radiographic Melanie ging Result [facility] Historical Provider IMG DXA PROCEDURES Edited Result - Final * Colonoscopy (07/27/2021) Anatomical Region Laterality Modality Other Result [facility] Historical Provider ENDOSCOPY PROCEDURES Vy l Result * Hepatitis C antibody (06/04/2020 10:29 AM PIECE DYEING MACHINE TENDER) Hep C Ab NON-REACTI VE NON-REACT ALEXYS [facility] SIGNAL TO CUT-OFF 0.02 <1.00 [facility] Comment: HCV antibody was non-reactive. There is no laboratory evidence of HCV infection. In most cases, no further action is required. However, if recent HCV exposure is suspected, a test for HCV RNA (test code 10190) is suggested. For additional information please refer to http://education.[employer]and[employer] Media/faq/WQS22z7 (This link is being provided for informational/ educational purposes only.) Blood specimen (specimen) 06/04/2020 10:29 AM PIECE DYEING MACHINE TENDER 06/04/2020 10:30 AM PIECE DYEING MACHINE TENDER Result [facility] Sangita OSMAN LAB MICROBIOLOGY - GENERA L ORDERABLES Final Result [facility] [address] [address] from Last 3 Months or Most Recently Relevant to Health Maintenance Insurance [facility] MEDICARE ADVANTAGE Advance Directives For more information, please contact: [phone] Documents on File Type Date Recorded Patient Tool Repairer Bench Expl anation ADVANCE DIRECTIVE 05/17/2024 2:13 PM Yonis r of [employer] * Full Code (Latest Code Status on File) Date Activated Date Inactivated Comments 05/30/2024 12:38 PM 06/05/2024 6:31 PM * Full Code Date Activated Date Inactivated Comments 05/04/2023 2:33 PM 05/07/2023 3:07 AM * Full Code Date Activated Date Inactivated Comments 03/22/2021 4:39 PM 03/25/2021 6:17 PM Care Teams Director Community Organization Relationship Specialty Start Date End Date Alee Elizondo PA [address] [facility] [address] [place], [place] [id number] PCP - General Internal Medicine 07/05/23 Sharan Linton MD Referring Physician Gastroenterology 10/31/18 Martha Starks MD Consulting Physician Cardiology 12/24/20 Shama Hines MD [address] [facility] [address] [place] [address] Consulting Physician Pain Management 01/19/21 Artis Grewal MD [address] [place] [address] Consulting Physician Rheumatology 01/30/21 Amy Mayes NP [address] [facility] [address] [place] [address] Nurse Practitioner Cardiovascular Disease 04/20/24 Shailesh Dunn MD [address] [facility] [address] [place] [address] Consulting Physician Pulmonary Disease 04/20/24 Sangita Farrar PA [address] [place] [address] Physician Launderette Attendant Rheumatology 05/15/24
--- OUTSIDE RECORDS SUMMARY | 2024-10-13 15:02 | XMS_ITS | Encounter Summary ---
Author Organization [facility] Facility Care Team Providers Care Business Control Specialist Name Role Phone Alee Elizondo Primary Care Provider + [phone] Sharan Linton MD Unavailable +[phone] Taisha Gomez MD Unavailable [phone] Parag Soto MD Unavailable +[phone] RaziaMartha singh MD Unavailable +[phone] Puneet Uribe MD Unavailable +[phone] Shama Hines MD Unavailable Artis Grewal MD Unavailable [phone] Harrison Pena RN Unavailable +[phone] Nafisa Gregg RN Unavailable Tho Kelsey MD Primary Care Provider +[phone] Alee Elizondo Primary Care Provider + [phone] Amy Mayes NP Unavailable +[phone] Shailesh Dunn MD Unavailable +[phone] Sangita Farrar Unavailable +[phone] Encounter Details Date Type Department Care Team (Latest Contact Info) Description 04/19/2016 Orders Only [facility] CLINCONV Provider, MD Tania [address] [place] [address] Social History Tobacco Use Types Packs/Day Years Used Date Smoking Tobacco: Never Alcohol Use Standard Drinks/Week Comments No 0 (1 standard drink = 0.6 oz pur e alcohol) Comments Unknown Sex and Gender Information Value Date Recorded Sex Assigned at Not on file Legal Sex Female 8:04 PM ANILINE PRESS WORKER Gender Identity Female 02/15/2020 6:08 PM [...] COVID: Suspected 08/13/2021 08/14/2021 08/14/2021 3:06 AM ANILINE PRESS WORKER COVID: Suspected 08/14/2021 08/14/2021 08/15/2021 3:05 AM ANILINE PRESS WORKER COVID: Suspected 08/14/2021 08/14/2021 08/15/2021 6:25 AM ANILINE PRESS WORKER COVID: Suspected 06/02/2023 06/02/2023 06/02/2023 7:25 PM ANILINE PRESS WORKER COVID: Suspected 07/26/2023 07/26/2023 07/26/2023 3:10 PM ANILINE PRESS WORKER COVID: Suspected 09/25/2024 09/25/2024 09/25/2024 11:03 AM CDT Influenza, adult 09/25/2024 09/25/2024 10/02/2024 3:05 AM CDT documented as of this encounter Care Teams Business Control Specialist Relationship Specialty Start Date End Date Alee Elizondo PA 1095 [facility] 500 [place] [address] PCP - General Internal Medicine 02/01/17 06/29/23 Tho Kelsey MD [address] [place] [address] DR [facility] [address] [place] [address] PCP - General Family Medicine 06/30/23 07/04/23 Alee Elizondo PA [address] [place] [address] [place] [address] PCP - General Internal Medicine 07/05/23 Sharan Linton MD [address] [place] [address] [place] [address] Referring Physician Gastroenterology 10/31/18 Taisha Gomez MD [address] [place] [address] [place] [address] Referring Physician Pulmonary Disease 10/31/18 12/23/20 Parag Soto MD [address] [place] [address] [place] [address] Referring Physician Rheumatology 10/31/18 12/23/20 Martha Starks MD [address] [place] [address] [place] [address] Consulting Physician Cardiology 12/24/20 Puneet Uribe MD [address] [facility] [address] [place] [address] Consulting Physician Rheumatology 12/24/20 01/29/21 Shama Hines MD 4700 [facility], [facility] 230 [place] [address] Consulting Physician Pain Management 01/19/21 Artis Grewal MD [address] [place] [address] Consulting Physician Rheumatology 01/30/21 Harrison Pena, JULIUS [address] [place] [address] Still Operator Batch Or Continuous 05/30/23 09/04/23 Nafisa Gregg, JULIUS [address] [place] [address] [place] [address] [place] [address] Still Operator Batch Or Continuous 06/06/23 06/12/23 Amy Mayes NP [address] [address] Nurse Practitioner Cardiovascular Disease 04/20/24 Shailesh Dunn MD 4600 [facility] 200 [place] [address] Consulting Physician Pulmonary Disease 04/20/24 Sangita Farrar PA [address] [place] [address] Physician Blade Aligner Rheumatology 05/15/24 documented as of this encounter
--- OUTSIDE RECORDS SUMMARY | 2024-10-13 15:02 | XMS_ITS | Encounter Summary ---
Author Organization [facility] Facility Care Team Providers Care Dormitory Maid Name Role Phone Alee Elizondo Primary Care Provider + [phone] Sharan Linton MD Unavailable +[phone] Taisha Gomez MD Unavailable +[phone] Parag Soto MD Unavailable +[phone] [facility] MD Unavailable +[phone] Puneet Uribe MD Unavailable +[phone] Shama Hines MD Unavailable Artis Grewal MD Unavailable [phone] Harrison Pena RN Unavailable +[phone] Nafisa Gregg RN Unavailable Tho Kelsey MD Primary Care Provider [phone] Alee Elizondo Primary Care Provider + [phone] Amy Mayes NP Unavailable +[phone] Shailesh Dunn MD Unavailable +[phone] Sangita Farrar Unavailable +[phone] Encounter Details Date Type Department Care Team (Latest Contact Info) Description 09/29/2015 Orders Only [facility] CLINCONV Provider, MD Tania [address] [place] [address] Social History Tobacco Use Types Packs/Day Years Used Date Smoking Tobacco: Never Assessed Comments Unknown Sex and Gender Information Value Date Recorded Sex Assigned at Not on file Legal Sex Female 8:04 PM CENTRAL OFFICE OPERATOR SUPERVISOR Gender Identity Female 02/15/2020 6:08 PM CDT [...] COVID: Suspected 08/13/2021 08/14/2021 08/14/2021 3:06 AM CENTRAL OFFICE OPERATOR SUPERVISOR COVID: Suspected 08/14/2021 08/14/2021 08/15/2021 3:05 AM CENTRAL OFFICE OPERATOR SUPERVISOR COVID: Suspected 08/14/2021 08/14/2021 08/15/2021 6:25 AM CENTRAL OFFICE OPERATOR SUPERVISOR COVID: Suspected 06/02/2023 06/02/2023 06/02/2023 7:25 PM CENTRAL OFFICE OPERATOR SUPERVISOR COVID: Suspected 07/26/2023 07/26/2023 07/26/2023 3:10 PM CENTRAL OFFICE OPERATOR SUPERVISOR COVID: Suspected 09/25/2024 09/25/2024 09/25/2024 11:03 AM CDT Influenza, adult 09/25/2024 09/25/2024 10/02/2024 3:05 AM CDT documented as of this encounter Care Teams Dormitory Maid Relationship Specialty Start Date End Date Alee Elizondo PA 1095 [facility] 500 [place] [address] PCP - General Internal Medicine 02/01/17 06/29/23 Tho Kelsey MD [address] [place] [address] DR [facility] 300 [place] [address] PCP - General Family Medicine 06/30/23 07/04/23 Alee Elizondo PA [address] [place] [address] [place] [address] PCP - General Internal Medicine 07/05/23 Sharan Linton MD [address] [place] [address] [place] [address] Referring Physician Gastroenterology 10/31/18 Taisha Gomez MD [address] [place] [address] [place] [address] Referring Physician Pulmonary Disease 10/31/18 12/23/20 Parag Soto MD [address] [place] [address] [place] [address] Referring Physician Rheumatology 10/31/18 12/23/20 Martha Starks MD [address] [place] [address] [place] [address] Consulting Physician Cardiology 12/24/20 Puneet Uribe MD [address] [facility] [address] [place] [address] Consulting Physician Rheumatology 12/24/20 01/29/21 Shama Hines MD 4700 [facility], [facility] 230 [place] [address] Consulting Physician Pain Management 01/19/21 Artis Grewal MD [address] [place] [address] Consulting Physician Rheumatology 01/30/21 Harrison Pena, JULIUS [address] [place] [address] Integration Lead 05/30/23 09/04/23 Nafisa Gregg RN [address] [place] [address] 300 [place] [address] Integration Lead 06/06/23 06/12/23 Amy Mayes NP [address] [address] Nurse Practitioner Cardiovascular Disease 04/20/24 Shailesh Dunn MD [address] [address] Consulting Physician Pulmonary Disease 04/20/24 Sangita Farrar PA [address] [place] [address] Physician Hyperion Developer Rheumatology 05/15/24 documented as of this encounter
--- OUTSIDE RECORDS SUMMARY | 2024-10-13 15:03 | XMS_ITS | Encounter Summary ---
Author Organization [facility] Facility Care Team Providers Care Diagrammer And Seamer Name Role Phone Alee Elizondo Primary Care Provider + [phone] Sharan Linton MD Unavailable [phone] Taisha Gomez MD Unavailable [phone] Parag Soto MD Unavailable [phone] RaziaMartha singh MD Unavailable +[phone] Puneet Uribe MD Unavailable +[phone] Shama Hines MD Unavailable Artis Grewal MD Unavailable [phone] Harrison Pena RN Unavailable +[phone] Nafisa Gregg RN Unavailable +[phone] Tho Kelsey MD Primary Care Provider [phone] Alee Elizondo Primary Care Provider + [phone] Amy Mayes NP Unavailable +[phone] Shailesh Dunn MD Unavailable +[phone] Sangita Farrar Unavailable +[phone] Encounter Details Date Type Department Care Team (Latest Contact Info) Description 01/08/2017 Orders Only [facility] CLINCONV Provider, MD Tania [address] [place] [address] Social History Tobacco Use Types Packs/Day Years Used Date Smoking Tobacco: Never Alcohol Use Standard Drinks/Week Comments No 0 (1 standard drink = 0.6 oz pur e alcohol) Comments Unknown Sex and Gender Information Value Date Recorded Sex Assigned at Not on file Legal 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 Gender Identity Female 02/15/2020 6:08 PM [...] COVID: Suspected 08/13/2021 08/14/2021 08/14/2021 3:06 AM CNC MILL SET UP OPERATOR COVID: Suspected 08/14/2021 08/14/2021 08/15/2021 3:05 AM CNC MILL SET UP OPERATOR COVID: Suspected 08/14/2021 08/14/2021 08/15/2021 6:25 AM CNC MILL SET UP OPERATOR COVID: Suspected 06/02/2023 06/02/2023 06/02/2023 7:25 PM CNC MILL SET UP OPERATOR COVID: Suspected 07/26/2023 07/26/2023 07/26/2023 3:10 PM CNC MILL SET UP OPERATOR COVID: Suspected 09/25/2024 09/25/2024 09/25/2024 11:03 AM CDT Influenza, adult 09/25/2024 09/25/2024 10/02/2024 3:05 AM CDT documented as of this encounter Care Teams Diagrammer And Seamer Relationship Specialty Start Date End Date Alee Elizondo PA 1095 [facility] 500 [place] [address] PCP - General Internal Medicine 02/01/17 06/29/23 Tho Kelsey MD [address] [place] [address] [address] [facility] 300 [place] [address] PCP - General Family Medicine 06/30/23 07/04/23 Alee Elizondo PA [address] [place] [address] [place] [address] PCP - General Internal Medicine 07/05/23 Sharan Linton MD [address] [place] [address] [place] [address] Referring Physician Gastroenterology 10/31/18 Taisha Gomez MD [address] [place] [address] [place] [address] Referring Physician Pulmonary Disease 10/31/18 12/23/20 Parag oSto MD [address] [place] [address] [place] [address] Referring Physician Rheumatology 10/31/18 12/23/20 Martha Starks MD [address] [place] [address] [place] [address] Consulting Physician Cardiology 12/24/20 Puneet Uribe MD [address] [facility] [address] [place] [address] Consulting Physician Rheumatology 12/24/20 01/29/21 Shama Hines MD 4700 [facility], [facility] 230 [place] [address] Consulting Physician Pain Management 01/19/21 Artis Grewal MD [address] [place] [address] Consulting Physician Rheumatology 01/30/21 Harrison Pena, JULIUS [address] [place] [address] Music Therapy Specialist 05/30/23 09/04/23 Nafisa Gregg, JULIUS [address] [place] [address] [place] [address] [place] [address] Music Therapy Specialist 06/06/23 06/12/23 Amy Mayes NP [address] [address] Nurse Practitioner Cardiovascular Disease 04/20/24 Shailesh Dunn MD 4600 [facility] 200 [place] [address] Consulting Physician Pulmonary Disease 04/20/24 Sangita Farrar PA [address] [place] [address] Physician Instructional Writer Rheumatology 05/15/24 documented as of this encounter
--- OUTSIDE RECORDS SUMMARY | 2024-10-13 15:03 | XMS_ITS | Encounter Summary ---
Author Organization [facility] Healthcare Address [address] [place] [address] Care Team Providers Care Drama Therapist Name Role Phone Sharan Linton MD Unavailable [phone] Martha Starks MD Unavailable +[phone] Shama Hines MD Unavailable Artis Grewal MD Unavailable [phone] Alee Elizondo Primary Care Provider [phone] Amy Mayes NP Unavailable +[phone] Shailesh Dunn MD Unavailable [phone] Sangita Farrar Unavailable +[phone] Encounter Details Date Type Department Care Team (Late st Contact Info) Description 03/02/2024 Telephone [facility] Family Medicine [address] [place] [address] Alee Elizondo PA [address] [facility] [address] [place] [address] [place] [address] Social History Tobacco Use Types Packs/Day Years Used Date Smoking Tobacco: Never Smokeless Tobacco: Never Comments:Never used Alcohol Use Standard Drinks/Week Comments No 0 (1 standard drink = 0.6 oz pur e alcohol) [facility] Utilities Answer Date Recorded In the past 12 months has [employer], gas, oil, or water company threatened to [...] on file Legal Sex Female 8:04 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 Gender Identity Female 02/15/2020 6:08 PM CDT [...] documented as of this encounter Care Teams Drama Therapist Relationship Specialty Start Date End Date Alee Elizondo PA 1095 [facility] 500 [place] [address] PCP - General Internal Medicine 07/05/23 Sharan Linton MD Referring Physician Gastroenterology 10/31/18 Martha Starks MD Consulting Physician Cardiology 12/24/20 Shama Hines MD [address] [address] Consulting Physician Pain Management 01/19/21 Artis Grewal MD [address] [place] [address] Consulting Physician Rheumatology 01/30/21 Amy Mayes NP [address] [address] Nurse Practitioner Cardiovascular Disease 04/20/24 Shailesh Dunn MD [address] [address] Consulting Physician Pulmonary Disease 04/20/24 Sangita Farrar PA [address] [place] [address] Physician Tuber Helper Rheumatology 05/15/24 documented as of this encounter
--- OUTSIDE RECORDS SUMMARY | 2024-10-13 15:03 | XMS_ITS | Encounter Summary ---
Author Organization [facility] Facility Care Team Providers Care Social Service Worker Name Role Phone Alee Elizondo Primary Care Provider + [phone] Sharan Linton MD Unavailable [phone] Taisha Gomez MD Unavailable +[phone] Parag Soto MD Unavailable [phone] RaziaMartha singh MD Unavailable [phone] Punete Uribe MD Unavailable Shama Hines MD Unavailable Artis Grewal MD Unavailable [phone] Harrison Pena RN Unavailable +[phone] Nafisa Gregg RN Unavailable Tho Kelsey MD Primary Care Provider [phone] Alee Elizondo Primary Care Provider + [phone] Amy Mayes NP Unavailable [phone] Shailesh Dunn MD Unavailable +[phone] Sangita Farrar Unavailable +[phone] Encounter Details Date Type Department Care Team (Latest Contact Info) Description 06/28/2016 Orders Only [facility] CLINCONV Provider, MD Tania [address] [place] [address] Social History Tobacco Use Types Packs/Day Years Used Date Smoking Tobacco: Never Alcohol Use Standard Drinks/Week Comments No 0 (1 standard drink = 0.6 oz pur e alcohol) Comments Unknown Sex and Gender Information Value Date Recorded Sex Assigned at Not on file Legal Sex Female 8:04 PM EMERGENCY RESPONSE TECHNICIAN Gender Identity Female 02/15/2020 6:08 PM CDT Sexual Orientation Not on file documented as of this encounter Plan of Treatment Not on file documented as of this encounter Procedures Procedure Name Priority Date/Time Associated Diagnosis Comments SCAN - LABS 06/29/2016 12:00 AM EMERGENCY RESPONSE TECHNICIAN documented in this encounter Results * SCAN - LABS (06/29/2016 12:00 AM EMERGENCY RESPONSE TECHNICIAN) Narrative 06/29/2016 12:00 AM EMERGENCY RESPONSE TECHNICIAN Ordered by an unspecified provider. Historical Provider MD Final Res ult documented in this encounter Visit Diagnoses Not on filedocumented in this encounter Additional Health Concerns Infection Onset Date Last Indicated Resolved Time COVID: Suspected 08/13/2021 08/14/2021 08/14/2021 3:06 AM EMERGENCY RESPONSE TECHNICIAN COVID: Suspected 08/14/2021 08/14/2021 08/15/2021 3:05 AM EMERGENCY RESPONSE TECHNICIAN COVID: Suspected 08/14/2021 08/14/2021 08/15/2021 6:25 AM EMERGENCY RESPONSE TECHNICIAN COVID: Suspected 06/02/2023 06/02/2023 06/02/2023 7:25 PM EMERGENCY RESPONSE TECHNICIAN COVID: Suspected 07/26/2023 07/26/2023 07/26/2023 3:10 PM EMERGENCY RESPONSE TECHNICIAN COVID: Suspected 09/25/2024 09/25/2024 09/25/2024 11:03 AM CDT Influenza, adult 09/25/2024 09/25/2024 10/02/2024 3:05 AM CDT documented as of this encounter Care Teams Social Service Worker Relationship Specialty Start Date End Date Alee Elizondo PA 1095 [facility] 500 [place] [address] PCP - General Internal Medicine 02/01/17 06/29/23 Tho Kelsey MD [address] [place] [address] [address] [place] [address] [place] [address] PCP - General Family Medicine 06/30/23 07/04/23 Alee Elizondo PA [address] [place] [address] [place] [address] PCP - General Internal Medicine 07/05/23 Sharan Linton MD [address] [place] [address] [place] [address] Referring Physician Gastroenterology 10/31/18 Taisha Gomez MD [address] [place] [address] [place] [address] Referring Physician Pulmonary Disease 10/31/18 12/23/20 Parag Soto MD [address] [place] [address] [place] [address] Referring Physician Rheumatology 10/31/18 12/23/20 Martha Starks MD [address] [facility] [address] [place] [address] Consulting Physician Cardiology 12/24/20 Puneet Uribe MD [address] [facility] [address] [place] [address] Consulting Physician Rheumatology 12/24/20 01/29/21 Shama Hines MD 4700 [facility], [place] [address] [place] [address] Consulting Physician Pain Management 01/19/21 Artis Grewal MD [address] [place] [address] Consulting Physician Rheumatology 01/30/21 Harrison Pena, JULIUS [address] [place] [address] Heel Sewer 05/30/23 09/04/23 Nafisa Gregg, JULIUS [address] [place] [address] [facility] [address] [place] [address] Heel Sewer 06/06/23 06/12/23 Amy Mayes NP [address] [facility] 102 [place] [address] Nurse Practitioner Cardiovascular Disease 04/20/24 Shailesh Dunn MD 4600 [facility] 200 [place] [address] Consulting Physician Pulmonary Disease 04/20/24 Sangita Farrar PA [address] [place] [address] Physician Heel Sewer Rheumatology 05/15/24 documented as of this encounter
--- OUTSIDE RECORDS SUMMARY | 2024-10-13 15:03 | XMS_ITS | Encounter Summary ---
Author Organization [facility] Healthcare Address [address] [place] [address] Care Team Providers Care Security Architect Name Role Phone Sharan Linton MD Unavailable [phone] Martha Starks MD Unavailable [phone] Shama Hines MD Unavailable Artis Grewal MD Unavailable [phone] Alee Elizondo Primary Care Provider [phone] Amy Mayes NP Unavailable +[phone] Shailesh Dunn MD Unavailable +[phone] Sangita Farrar Unavailable [phone] Encounter Details Date Type Department Care Team (Late st Contact Info) Description 12/08/2023 Orders Only [facility] Management [address] [place] [address] Scanning, Provider Social History Tobacco Use Types Packs/Day Years Used Date Smoking Tobacco: Never Smokeless Tobacco: Never Comments:Never used Alcohol Use Standard Drinks/Week Comments No 0 (1 standard drink = 0.6 oz pur e alcohol) [facility] Utilities Answer Date Recorded In the past [...] often do you attend chur ch or mandaen services? More than 4 times per year 05/27/2023 Do you belong to any clubs o r organizations such as adventism groups, unions, fraternal or athletic groups, or [...] on file Legal Sex Female 8:04 PM SOCIAL SERVICE DIRECTOR Gender Identity Female 02/15/2020 6:08 PM [...] documented as of this encounter Care Teams Security Architect Relationship Specialty Start Date End Date Alee Elizondo PA [address] [address] PCP - General Internal Medicine 07/05/23 Sharan Linton MD Referring Physician Gastroenterology 10/31/18 Martha Starks MD Consulting Physician Cardiology 12/24/20 Shama Hines MD 4700 [facility], [address] [address] Consulting Physician Pain Management 01/19/21 Artis Grewal MD [address] [place] [address] Consulting Physician Rheumatology 01/30/21 Amy Mayes NP [address] [address] Nurse Practitioner Cardiovascular Disease 04/20/24 Shailesh Dunn MD [address] [address] Consulting Physician Pulmonary Disease 04/20/24 Sangita Farrar PA [address] [place] [address] Physician Quebracho Tanner Rheumatology 05/15/24 documented as of this encounter
--- OUTSIDE RECORDS SUMMARY | 2024-10-13 15:03 | XMS_ITS | Encounter Summary ---
Author Organization [facility] Facility Care Team Providers Care Manual Lathe Operator Name Role Phone Alee Elizondo Primary Care Provider + [phone] Sharan Linton MD Unavailable [phone] Taisha Gomez MD Unavailable [phone] Parag Soto MD Unavailable [phone] [facility] MD Unavailable [phone] Puneet Uribe MD Unavailable +[phone] Shama iHnes MD Unavailable Artis Grewal MD Unavailable [phone] Harrison Pena RN Unavailable +[phone] Nafisa Gregg RN Unavailable +[phone] Tho Kelsey MD Primary Care Provider +[phone] Alee Elizondo Primary Care Provider + [phone] Amy Mayes NP Unavailable +[phone] Shailesh Dunn MD Unavailable +[phone] Sangita Farrar Unavailable +[phone] Encounter Details Date Type Department Care Team (Latest Contact Info) Description 09/14/2016 Orders Only [facility] CLINCONV Provider, MD Tania [address] [place] [address] Social History Tobacco Use Types Packs/Day Years Used Date Smoking Tobacco: Never Alcohol Use Standard Drinks/Week Comments No 0 (1 standard drink = 0.6 oz pur e alcohol) Comments Unknown Sex and Gender Information Value Date Recorded Sex Assigned at Not on file Legal Sex Female 8:04 PM ASSEMBLY LINE MACHINE OPERATOR Gender Identity Female 02/15/2020 6:08 PM CDT Sexual Orientation Not on file documented as of this encounter Plan of Treatment Not on file documented as of this encounter Procedures Procedure Name Priority Date/Time Associated Diagnosis Comments PROCEDURE - RESULT 09/09/2016 12 :00 AM ASSEMBLY LINE MACHINE OPERATOR documented in this encounter Results * PROCEDURE - RESULT (09/09/2016 12:00 AM ASSEMBLY LINE MACHINE OPERATOR) Narrative 09/09/2016 12:00 AM ASSEMBLY LINE MACHINE OPERATOR Ordered by an unspecified provider. Historical Provider MD Final Res ult documented in this encounter Visit Diagnoses Not on filedocumented in this encounter Additional Health Concerns Infection Onset Date Last Indicated Resolved Time COVID: Suspected 08/13/2021 08/14/2021 08/14/2021 3:06 AM ASSEMBLY LINE MACHINE OPERATOR COVID: Suspected 08/14/2021 08/14/2021 08/15/2021 3:05 AM ASSEMBLY LINE MACHINE OPERATOR COVID: Suspected 08/14/2021 08/14/2021 08/15/2021 6:25 AM ASSEMBLY LINE MACHINE OPERATOR COVID: Suspected 06/02/2023 06/02/2023 06/02/2023 7:25 PM ASSEMBLY LINE MACHINE OPERATOR COVID: Suspected 07/26/2023 07/26/2023 07/26/2023 3:10 PM ASSEMBLY LINE MACHINE OPERATOR COVID: Suspected 09/25/2024 09/25/2024 09/25/2024 11:03 AM CDT Influenza, adult 09/25/2024 09/25/2024 10/02/2024 3:05 AM CDT documented as of this encounter Care Teams Manual Lathe Operator Relationship Specialty Start Date End Date Alee Elizondo PA [address] [facility] [place] [address] [place] [address] PCP - General Internal Medicine 02/01/17 06/29/23 Tho Kelsey MD [address] [place] [address] [address] [place] [address] PCP - General Family Medicine 06/30/23 07/04/23 Alee Elizondo PA [address] [place] [address] PCP - General Internal Medicine 07/05/23 Sharan Linton MD [address] [place] [address] Referring Physician Gastroenterology 10/31/18 Taisha Gomez MD [address] [place] [address] Referring Physician Pulmonary Disease 10/31/18 12/23/20 Parag Soto MD [address] [place] [address] Referring Physician Rheumatology 10/31/18 12/23/20 Martha Starks MD [address] [place] [address] Consulting Physician Cardiology 12/24/20 Puneet Uribe MD [address] [facility] [address] [place] [address] Consulting Physician Rheumatology 12/24/20 01/29/21 Shama Hines MD [address] [facility], [address] [place] [address] Consulting Physician Pain Management 01/19/21 Artis Grewal MD [address] [place] [address] Consulting Physician Rheumatology 01/30/21 Harrison Pena, JULIUS [address] [place] [address] Civil Engineering Professional 05/30/23 09/04/23 Nafisa Gregg, JULIUS [address] [place] [address] [facility] 300 [place] [address] Civil Engineering Professional 06/06/23 06/12/23 Amy Mayes NP [address] [facility] 102 [place] [address] Nurse Practitioner Cardiovascular Disease 04/20/24 Shailesh Dunn MD 4600 [facility] 200 [place] [address] Consulting Physician Pulmonary Disease 04/20/24 Sangita Farrar PA [address] [place] [address] Physician Network Operations Center Technician Rheumatology 05/15/24 documented as of this encounter
--- OUTSIDE RECORDS SUMMARY | 2024-10-13 15:03 | XMS_ITS | Continuity of Care Document ---
Author Organization [facility] Address [address] [place] [address] [place] [address] Phone Care Team Providers Care Saddle Stitcher Name Role Phone Oswald No DO Unavailable Unavailable Advance Directives Directive Yes / No Effective Date File Name No Information Encounters Encounter Description Practice Location Reason(s) For Visit Diagnoses Date Provider Providers Copied on Encounter [facility], [address] [place] [address] [address], [place], [place], [id number], [place] tel:[phone] [facility] No Information Oneal Combs. [address] [facility], [place], [address], [place]. tel: [phone] Family History Family Member Type Diagnosis Age At Onset No Information Payers Payer name Insurance type Covered republican ID Authoriza tion(s) No Information Social History [...]
--- OUTSIDE RECORDS SUMMARY | 2024-10-13 15:03 | XMS_ITS | Encounter Summary ---
Author Organization [facility] Facility Care Team Providers Care Frame Cleaner Name Role Phone Alee Elizondo Primary Care Provider + [phone] Sharan Linton MD Unavailable [phone] Taisha Gomez MD Unavailable [phone] Parag Soto MD Unavailable [phone] RaziaMartha singh MD Unavailable [phone] Puneet Uribe MD Unavailable +[phone] Shama Hines MD Unavailable Artis Grewal MD Unavailable [phone] Harrison Pena RN Unavailable +[phone] Nafisa Gregg RN Unavailable [phone] Tho Kelsey MD Primary Care Provider [phone] Alee Elizondo Primary Care Provider + [phone] Amy Mayes NP Unavailable +[phone] Shailesh Dunn MD Unavailable +[phone] Sangita Farrar Unavailable +[phone] Encounter Details Date Type Department Care Team (Latest Contact Info) Description 08/10/2017 Orders Only [facility]G CLINCONV Provider, MD Tania [address] [place] [address] Social History Tobacco Use Types Packs/Day Years Used Date Smoking Tobacco: Never Smokeless Tobacco: Never Alcohol Use Standard Drinks/Week Comments No 0 (1 standard drink = 0.6 oz pur e alcohol) Comments Unknown Sex and Gender Information Value Date Recorded Sex Assigned at Not on file Legal Sex Female 8:04 PM HOSPITAL CARRIER Gender Identity Female 02/15/2020 6:08 PM CDT Sexual Orientation Not on file documented as of this encounter Plan of Treatment Not on file documented as of this encounter Procedures Procedure Name Priority Date/Time Associated Diagnosis Comments CARDIOLOGY REPORT 08/10/2017 12: 00 AM HOSPITAL CARRIER documented in this encounter Results * CARDIOLOGY REPORT (08/10/2017 12:00 AM HOSPITAL CARRIER) Anatomical Region Laterality Modality Other Narrative 08/10/2017 12:00 AM HOSPITAL CARRIER Ordered by an unspecified provider. Historical Provider [facility] LEANDRA LANDRUM Final Result documented in this encounter Visit Diagnoses Not on filedocumented in this encounter Additional Health Concerns Infection Onset Date Last Indicated Resolved Time COVID: Suspected 08/13/2021 08/14/2021 08/14/2021 3:06 AM HOSPITAL CARRIER COVID: Suspected 08/14/2021 08/14/2021 08/15/2021 3:05 AM HOSPITAL CARRIER COVID: Suspected 08/14/2021 08/14/2021 08/15/2021 6:25 AM HOSPITAL CARRIER COVID: Suspected 06/02/2023 06/02/2023 06/02/2023 7:25 PM HOSPITAL CARRIER COVID: Suspected 07/26/2023 07/26/2023 07/26/2023 3:10 PM HOSPITAL CARRIER COVID: Suspected 09/25/2024 09/25/2024 09/25/2024 11:03 AM CDT Influenza, adult 09/25/2024 09/25/2024 10/02/2024 3:05 AM CDT documented as of this encounter Care Teams Frame Cleaner Relationship Specialty Start Date End Date Alee Elizondo PA [address] [facility] 500 [place] [address] PCP - General Internal Medicine 02/01/17 06/29/23 Tho Kelsey MD [address] [place] [address] DR [facility] 300 [place] [address] PCP - General Family Medicine 06/30/23 07/04/23 Alee Elizondo PA [address] [place] [place] [address] PCP - General Internal Medicine 07/05/23 Sharan Linton MD [address] [place] [place], [place] [id number] Referring Physician Gastroenterology 10/31/18 Taisha Gomez MD [address] [facility] 500 [place], [place] [address] Referring Physician Pulmonary Disease 10/31/18 12/23/20 Parag Soto MD [address] [facility] 500 [place] [address] Referring Physician Rheumatology 10/31/18 12/23/20 Martha Starks MD [address] [place] [address] [place] [address] Consulting Physician Cardiology 12/24/20 Puneet Uribe MD [address] [facility] [address] [place] [address] Consulting Physician Rheumatology 12/24/20 01/29/21 Shama Hines MD [address]00 [facility], [facility] 230 [place] [address] Consulting Physician Pain Management 01/19/21 Artis Grewal MD [address] [place] [address] Consulting Physician Rheumatology 01/30/21 Harrison Pena, JULIUS [address] [place] [address] Bath Attendant 05/30/23 09/04/23 Nafisa Gregg, JULIUS [address] [place] [address] [facility] 300 [place], [place] [address] Bath Attendant 06/06/23 06/12/23 Amy Mayes NP [address] [facility] 102 [place], [place] [address] Nurse Practitioner Cardiovascular Disease 04/20/24 Shailesh Dunn MD 4600 [facility] 200 [place] [address] Consulting Physician Pulmonary Disease 04/20/24 Sangita Farrar PA [address] [place] [address] Physician Master Printer Rheumatology 05/15/24 documented as of this encounter
--- OUTSIDE RECORDS SUMMARY | 2024-10-13 15:03 | XMS_ITS | Encounter Summary ---
Author Organization [facility] Facility Care Team Providers Care Music Promoter Name Role Phone Alee Elizondo Primary Care Provider + [phone] Sharan Linton MD Unavailable [phone] Taisha Gomez MD Unavailable [phone] Parag Soto MD Unavailable [phone] RaziaMartha singh MD Unavailable [phone] Puneet Uribe MD Unavailable +[phone] Shama Hines MD Unavailable Artis Grewal MD Unavailable [phone] Harrison Pena RN Unavailable +[phone] Nafisa Gregg RN Unavailable +[phone] Tho Kelsey MD Primary Care Provider [phone] Alee Elizondo Primary Care Provider + [phone] Amy Mayes NP Unavailable +[phone] Shailesh Dunn MD Unavailable [phone] Sangita Farrar Unavailable +[phone] Encounter Details Date Type Department Care Team (Latest Contact Info) Description 10/15/2016 Orders Only [facility]G CLINCONV Provider, MD Tania [address] [place] [address] Social History Tobacco Use Types Packs/Day Years Used Date Smoking Tobacco: Never Alcohol Use Standard Drinks/Week Comments No 0 (1 standard drink = 0.6 oz pur e alcohol) Comments Unknown Sex and Gender Information Value Date Recorded Sex Assigned at Not on file Legal Sex Female 8:04 PM FELT HOOKER Gender Identity Female 02/15/2020 6:08 PM CDT [...] COVID: Suspected 08/13/2021 08/14/2021 08/14/2021 3:06 AM FELT HOOKER COVID: Suspected 08/14/2021 08/14/2021 08/15/2021 3:05 AM FELT HOOKER COVID: Suspected 08/14/2021 08/14/2021 08/15/2021 6:25 AM FELT HOOKER COVID: Suspected 06/02/2023 06/02/2023 06/02/2023 7:25 PM FELT HOOKER COVID: Suspected 07/26/2023 07/26/2023 07/26/2023 3:10 PM FELT HOOKER COVID: Suspected 09/25/2024 09/25/2024 09/25/2024 11:03 AM CDT Influenza, adult 09/25/2024 09/25/2024 10/02/2024 3:05 AM CDT documented as of this encounter Care Teams Music Promoter Relationship Specialty Start Date End Date Alee Elizondo PA [address] [facility] 500 [place] [address] PCP - General Internal Medicine 02/01/17 06/29/23 Tho Kelsey MD [address] [place] [address] [address] [facility] 300 [place] [address] PCP - General Family Medicine 06/30/23 07/04/23 Alee Elizondo PA [address] [place] [place] [address] PCP - General Internal Medicine 07/05/23 Sharan Linton MD [address] [place] [place] [address] Referring Physician Gastroenterology 10/31/18 Taisha Gomez MD [address] [place] [place] [address] Referring Physician Pulmonary Disease 10/31/18 12/23/20 Parag Soto MD [address] [place] [place] [address] Referring Physician Rheumatology 10/31/18 12/23/20 Martha Starks MD [address] [place] [place] [address] Consulting Physician Cardiology 12/24/20 Puneet Uribe MD [address] [facility] [address] [place] [address] Consulting Physician Rheumatology 12/24/20 01/29/21 Shama Hines MD 4700 [facility], [facility] [address] [place] [address] Consulting Physician Pain Management 01/19/21 Artis Grewal MD [address] [place] [address] Consulting Physician Rheumatology 01/30/21 Harrison Pena, JULIUS [address] [place] [address] Automotive Technology Instructor 05/30/23 09/04/23 Nafisa Gregg, JULIUS [address] [place] [address] [address] [place] [address] Automotive Technology Instructor 06/06/23 06/12/23 Amy Mayes NP [address] [address] Nurse Practitioner Cardiovascular Disease 04/20/24 Shailesh Dunn MD 4600 [facility] 200 [place] [address] Consulting Physician Pulmonary Disease 04/20/24 Sangita Farrar PA [address] [place] [address] Physician Concrete Block Maker Rheumatology 05/15/24 documented as of this encounter
--- OUTSIDE RECORDS SUMMARY | 2024-10-13 15:03 | XMS_ITS | Encounter Summary ---
Author Organization [facility] Address [address] [place] [address] Care Team Providers Care Dextrine Mixer Name Role Phone Sharan Linton MD Unavailable [phone] Martha Starks MD Unavailable [phone] Shama Hines MD Unavailable Artis Grewal MD Unavailable [phone] Alee Elizondo Primary Care Provider [phone] Amy Mayes NP Unavailable +[phone] Shailesh Dunn MD Unavailable [phone] Sangita Farrar Unavailable +[phone] Encounter Details Date Type Department Care Team (Late st Contact Info) Description 10/04/2024 Results Follow-Up [facility] Family Medicine [address] [facility] [place] [address] Alee Elizondo PA [address] [facility] [address] [place] [address] Social History Tobacco Use Types Packs/Day Years Used Date Smoking Tobacco: Never Smokeless Tobacco: Never Comments:Never used Alcohol Use Standard Drinks/Week Comments No 0 (1 standard drink = 0.6 oz pur e alcohol) [facility] Utilities Answer Date Recorded In the past 12 months has IID, oil, or water [employer] threatened to shut off services in your [...] you attend chur ch or mormonism services? 1 to 4 times per year [...] time in the past 12 m [facility], were you homeless [...] on file Legal Sex Female 8:04 PM AD TAKER Gender Identity Female 02/15/2020 6:08 PM CDT [...] on filedocumented in this encounter Care Teams Dextrine Mixer Relationship Specialty Start Date End Date Alee Elizondo PA [address] [facility] 500 [place] [address] PCP - General Internal Medicine 07/05/23 Sharan Linton MD Referring Physician Gastroenterology 10/31/18 Martha Starks MD Consulting Physician Cardiology 12/24/20 Shama Hines MD [address] [facility] [address] Consulting Physician Pain Management 01/19/21 Artis Grewal MD [address] [place] [address] Consulting Physician Rheumatology 01/30/21 Amy Mayes NP [address] [facility] [address] [place] [address] Nurse Practitioner Cardiovascular Disease 04/20/24 Shailesh Dunn MD [address] [address] Consulting Physician Pulmonary Disease 04/20/24 Sangita Farrar PA [address] [place] [address] Physician Welt Drawer Rheumatology 05/15/24 documented as of this encounter
--- OUTSIDE RECORDS SUMMARY | 2024-10-13 15:03 | XMS_ITS | Clinical Summary ---
Author Organization [facility] [address] Address [address] [place] [address] Care Team Providers Care Health Psychologist Name Role Phone Sharan Linton MD Unavailable [phone] Martha Starks MD Unavailable [phone] Shama Hines MD Unavailable Artis Grewal MD Unavailable [phone] Alee Elizondo Primary Care Provider [phone] Amy Mayes NP Unavailable [phone] Shailesh Dunn MD Unavailable [phone] Sangita Farrar Unavailable Allergies Active Allergy Reactions [...] provided. Assessment & Plan (05/07/2024 8:56 PM PASTING MACHINE OPERATOR): Discussed the patient's BMI. The BMI is [...] provided. Assessment & Plan (09/06/2023 9:38 AM PASTING MACHINE OPERATOR): Discussed the patient's BMI. The BMI is above average. BMI management plan is completed. BMI Follow-up includes: nutrition counseling, exercise counseling and education provided. Patient has an obesity-related condition (not limited to: hypertension, obstructive sleep apnea, osteoarthritis, hyperlipidemia, diabetes, etc.). Therefore, morbid obesity may be documented for patients with a BMI between 35.00-39.99. Assessment & Plan (08/07/2023 7:51 PM PASTING MACHINE OPERATOR): Discussed the patient's BMI. The BMI is above average. BMI management plan is completed. BMI Follow-up includes: nutrition counseling, exercise counseling and education provided. Patient has an obesity-related condition (not limited to: hypertension, obstructive sleep apnea, osteoarthritis, hyperlipidemia, diabetes, etc.). Therefore, morbid obesity may be documented for patients with a BMI between 35.00-39.99. Assessment & Plan (08/03/2023 7:45 AM PASTING MACHINE OPERATOR): Discussed the patient's BMI. The BMI is above average. BMI management plan is completed. BMI Follow-up includes: nutrition counseling, exercise counseling and education provided. Primary osteoarthritis of right knee 07/08/2023 Assessment & Plan (05/07/2024 8:56 PM PASTING MACHINE OPERATOR): Patient has arthritis in the right knee. Planning a total knee replacement with Dr. Alexus Motta on May 30 Assessment & Plan (08/03/2023 8:28 AM PASTING MACHINE OPERATOR): Continue per ortho. She is seeing some improvement but it is difficult to know if the knee is rheumatoid versus osteo versus other etiology. Will await recommendations from JACQUI Raya but definitely encouraged her to become active as soon as possible. Status post total knee replacement using cement, right 05/19/2023 Assessment & Plan (06/02/2023 4:56 PM PASTING MACHINE OPERATOR): Status post total knee replacement with Dr. Ge Sexton 04 May. She has just been released from rehab following up for her TCM visit. She appears to have an area of cellulitis at the incision site. She is also complaining of increased pain. Will check CBC CMP and inflammatory markers along with an x-ray. [facility] Will follow up with [...] provided. Assessment & Plan (06/02/2023 8:27 AM PASTING MACHINE OPERATOR): Discussed the patients BMI: The BMI is [...] 12/20/2022 Assessment & Plan (05/07/2024 8:55 PM PASTING MACHINE OPERATOR): Patient is on medication for her rheumatoid arthritis managed by [facility] Assessment & Plan (01/22/2024 8:13 PM CDT): Medications from [facility] contribute to her immunosuppressive state. Assessment & Plan (09/06/2023 9:41 AM PASTING MACHINE OPERATOR): Medications are managed by [facility] for her rheumatoid arthritis Assessment & Plan (04/06/2023 7:44 PM CDT): Managed by [facility]. Currently on Plaquenil methotrexate Orencia folic [...] capacity. Assessment & Plan (09/06/2023 9:41 AM PASTING MACHINE OPERATOR): Continue per . She did not tolerate [...] Pate. Assessment & Plan (07/18/2022 10:20 AM PASTING MACHINE OPERATOR): CT revealed pelvic lipomatosis that is compressing [...] 02/11/2022 Assessment & Plan (09/06/2023 9:41 AM PASTING MACHINE OPERATOR): No change. Dysfunction of both eustachian tubes 02/11/2022 Myalgia, lower leg 01/11/2022 PLMD (periodic limb movement disorder) Assessment & Plan (08/02/2024 11:49 AM PASTING MACHINE OPERATOR): Asymptomatic Assessment & Plan (06/22/2022 10:31 AM PASTING MACHINE OPERATOR): Will continue Requip 1 mg nightly Assessment [...] bedtime. Assessment & Plan (07/13/2021 11:25 AM PASTING MACHINE OPERATOR): Due to the patient stating that she [...] 06/04/2020 Assessment & Plan (08/23/2024 10:16 AM PASTING MACHINE OPERATOR): Hepatitis negative 06/2020 Tspot negative 06/2020 Continue routine lab monitoring Maintain routine eye exams throughout the duration of taking hydroxychloroquine Assessment & Plan (07/30/2024 8:24 AM PASTING MACHINE OPERATOR): Hepatitis negative 06/2020 Tspot negative 06/2020 Continue [...] hydroxychloroquine Assessment & Plan (09/01/2023 8:34 AM PASTING MACHINE OPERATOR): Hepatitis negative 06/2020 Tspot negative 06/2020 Continue routine lab monitoring Maintain routine eye exams throughout the duration of taking hydroxychloroquine Assessment & Plan (06/29/2023 2:19 PM PASTING MACHINE OPERATOR): Hepatitis negative 06/2020 Tspot negative 06/2020 Continue [...] hydroxychloroquine Assessment & Plan (07/14/2022 2:58 PM PASTING MACHINE OPERATOR): Hepatitis negative 06/2020 Tspot negative 06/2020 Continue routine lab monitoring Maintain routine eye exams throughout the duration of taking hydroxychloroquine Assessment & Plan (06/03/2022 9:58 AM PASTING MACHINE OPERATOR): Hepatitis negative 06/2020 Tspot negative 06/2020 Continue [...] hydroxychloroquine Assessment & Plan (09/03/2021 8:29 AM PASTING MACHINE OPERATOR): Hepatitis negative 06/2020 Tspot negative 06/2020 Continue routine lab monitoring Maintain routine eye exams throughout the duration of taking hydroxychloroquine Assessment & Plan (06/03/2021 4:17 PM PASTING MACHINE OPERATOR): Hepatitis negative 06/2020 Tspot negative 06/2020 Continue [...] hydroxychloroquine Assessment & Plan (09/02/2020 1:16 PM PASTING MACHINE OPERATOR): Hepatitis negative 06/2020 Tspot negative 06/2020 Continue routine lab monitoring Maintain routine eye exams throughout the duration of taking hydroxychloroquine Assessment & Plan (07/09/2020 12:23 PM PASTING MACHINE OPERATOR): Hepatitis negative 06/2020 Tspot negative 06/2020 Continue routine lab monitoring Maintain routine eye exams throughout the duration of taking hydroxychloroquine Drug-induced constipation 08/13/2019 Assessment & Plan (05/07/2024 8:54 PM PASTING MACHINE OPERATOR): Patient with chronic constipation. Has been on [...] linzess Assessment & Plan (08/13/2019 8:57 AM PASTING MACHINE OPERATOR): On Movantik with Dr. Soto Herpes zoster without complication 12/13/2018 Assessment & Plan (12/23/2018 10:18 PM CDT): Valtex to pharmacy. She has had shingles in the past. Pre-diabetes 10/31/2018 Assessment & Plan (05/07/2024 8:55 PM PASTING MACHINE OPERATOR): Pre-diabetes/hyperglycemia is a precursor to Dm. Stressed [...] diabetes. Assessment & Plan (09/06/2023 9:40 AM PASTING MACHINE OPERATOR): Pre-diabetes/hyperglycemia is a precursor to Dm. Stressed [...] diabetes. Assessment & Plan (09/11/2021 11:22 PM PASTING MACHINE OPERATOR): Pre-diabetes/hyperglycemia is a precursor to Dm. Stressed importance of working on diet (decrease your simple sugars and one carbohydrate with each meal) and increase you exercise to achieve weight loss and this will help prevent you from progressing to diabetes. Assessment & Plan (05/29/2021 8:18 PM PASTING MACHINE OPERATOR): Pre-diabetes/hyperglycemia is a precursor to Dm. Stressed [...] diabetes. Assessment & Plan (08/31/2020 9:34 AM PASTING MACHINE OPERATOR): Pre-diabetes is a precursor to Dm. Stressed [...] diabetes. Assessment & Plan (08/13/2019 9:00 AM PASTING MACHINE OPERATOR): This is a significant, separately identifiable problem [...] 10/31/2018 Assessment & Plan (05/07/2024 8:54 PM PASTING MACHINE OPERATOR): Depression symptoms are stable with Wellbutrin XL 150 Cymbalta 60 b.i.d. Assessment & Plan (04/21/2024 8:50 PM CDT): Depression symptoms are stable with the Wellbutrin XL 150 and Cymbalta 60 b.i.d. Assessment & Plan (01/22/2024 8:11 PM CDT): Depression symptoms are stable with Wellbutrin and Cymbalta Assessment & Plan (09/06/2023 9:40 AM PASTING MACHINE OPERATOR): Depression is stable with Wellbutrin and Cymbalta Assessment & Plan (08/03/2023 8:31 AM PASTING MACHINE OPERATOR): Stable with Cymbalta 60 and Wellbutrin XL [...] Cymbalta Assessment & Plan (09/11/2021 11:26 PM PASTING MACHINE OPERATOR): Continue Wellbutrin and Cymbalta Assessment & Plan (05/29/2021 8:22 PM PASTING MACHINE OPERATOR): Continue Wellbutrin and Cymbalta Assessment & Plan (05/24/2021 10:39 AM PASTING MACHINE OPERATOR): Continue Wellbutrin and Cymbalta Assessment & Plan (12/24/2020 9:07 AM CDT): Continue wellbutrin and cymbalta Assessment & Plan (08/31/2020 9:35 AM PASTING MACHINE OPERATOR): Continue wellbutrin and cymbalta Assessment & Plan (02/18/2020 9:47 PM CDT): Stable with the Cymbalata Assessment & Plan (08/13/2019 8:59 AM PASTING MACHINE OPERATOR): Stable with Cymbalta and Wellbutrin Assessment & [...] regimen. Med list updated to reflect the [id number] one daily and Prozac 40mg. Mixed hyperlipidemia 03/29/2018 Assessment & Plan (05/07/2024 8:54 PM PASTING MACHINE OPERATOR): Encouraged patient to follow low fat/low chol [...] statin Assessment & Plan (09/06/2023 9:42 AM PASTING MACHINE OPERATOR): Encouraged patient to follow low fat/low chol [...] statin Assessment & Plan (09/11/2021 11:26 PM PASTING MACHINE OPERATOR): Encouraged patient to follow low fat/low chol diet like the Mediterranean diet. Increase good fats in the diet. Increase exercise. Monitor labs as needed. Continue statin Assessment & Plan (05/29/2021 8:22 PM PASTING MACHINE OPERATOR): Encouraged patient to follow fat/low chol diet like the Mediterranean diet. Increase good fats in the diet. Increase exercise. Monitor labs as needed. Continue statin Assessment & Plan (05/24/2021 10:39 AM PASTING MACHINE OPERATOR): Encouraged patient to follow fat/low chol diet like the Mediterranean diet. Increase good fats in the diet. Increase exercise. Monitor labs as needed. Continue statin Assessment & Plan (12/24/2020 9:07 AM CDT): Encouraged patient to follow fat/low chol diet like the Mediterranean diet. Increase good fats in the diet. Increase exercise. Monitor labs as needed. Continue statin Assessment & Plan (08/31/2020 9:34 AM PASTING MACHINE OPERATOR): Encouraged patient to follow fat/low chol diet like the Mediterranean diet. Increase good fats in the diet. Increase exercise. Monitor labs as needed. Continue statin Assessment & Plan (02/18/2020 9:46 PM CDT): Encouraged patient to continue low fat/low chol diet. Continue exercise. Increase good fats in the diet. Monitor labs as needed. Assessment & Plan (08/13/2019 8:59 AM PASTING MACHINE OPERATOR): Encouraged patient to continue low fat/low chol [...] future Assessment & Plan (09/06/2023 9:40 AM PASTING MACHINE OPERATOR): Continue PPI Assessment & Plan (04/06/2023 7:36 PM CDT): Continue PPI p.r.n. Assessment & Plan (01/20/2023 8:13 PM CDT): Continue PPI Assessment & Plan (09/12/2022 6:13 PM CDT): Continue PPI p.r.n. Assessment & Plan (06/03/2022 3:40 PM PASTING MACHINE OPERATOR): Pyrosis poorly controlled on Nexium. Pt has [...] PPI Assessment & Plan (09/11/2021 11:26 PM PASTING MACHINE OPERATOR): Continue PPI Assessment & Plan (12/24/2020 9:05 AM CDT): Continue PPI Assessment & Plan (02/18/2020 9:45 PM CDT): Continue PPI. Saw Dr. Linton for increased GERD sxs. If persist, encouraged to followup again with Dr. Linton. Assessment & Plan (08/13/2019 8:58 AM PASTING MACHINE OPERATOR): Stable with PPI Assessment & Plan (04/29/2019 [...] exertion) Assessment & Plan (06/22/2022 10:30 AM PASTING MACHINE OPERATOR): Patient is not currently using inhalers. She [...] 10/14/2015 Assessment & Plan (08/02/2024 11:49 AM PASTING MACHINE OPERATOR): Due to the patient stating the pressure [...] readjusted. She denied need for supplies. DME [facility] Assessment & Plan (05/07/2024 8:55 PM PASTING MACHINE OPERATOR): Continue with CPAP. Assessment & Plan (04/21/2024 8:49 PM CDT): Continue per Dr. Dunn. Has all her needed supplies for CPAP which she is using every night. Continue with Requip 0.5 mg HS for restless leg Assessment & Plan (01/22/2024 8:08 PM CDT): Continue CPAP per Dr. Dunn Assessment & Plan (09/06/2023 9:40 AM PASTING MACHINE OPERATOR): Continue CPAP Assessment & Plan (06/21/2023 10:14 AM PASTING MACHINE OPERATOR): Patient continue to wear her CPAP at [...] CPAP Assessment & Plan (06/22/2022 10:31 AM PASTING MACHINE OPERATOR): Will continue CPAP therapy at an auto titrating range of 7-20 cm water pressure. Denied need for supplies. [employer] [facility] patient Assessment & Plan (05/02/2022 9:15 [...] water pressure. Patient denied need for supplies. [facility] patient. Patient is benefitting CPAP Assessment & Plan (09/11/2021 11:22 PM PASTING MACHINE OPERATOR): Continue CPAP. Patient has all needed supplies. Assessment & Plan (07/13/2021 11:27 AM PASTING MACHINE OPERATOR): Due to the patient stating she does not have enough pressure in her machine, I have increased the pressure to 13 cm water pressure. The patient denied need for for supplies. [employer] patient. Have also ordered a new smart card set at 13 cm water pressure. Benefitting from CPAP therapy Assessment & Plan (05/29/2021 8:14 PM PASTING MACHINE OPERATOR): Continue CPAP. Assessment & Plan (02/17/2021 11:09 AM CDT): The patient continues to be compliant with her CPAP at 8 cm water pressure. She has developed worsening daytime hypersomnia. She also has morning headaches and dry mouth. I have recommended proceeding with a CPAP titration study starting at 8 cm water pressure. Her DME is [facility]. Assessment & Plan (12/24/2020 9:04 AM CDT): Continue CPAP. Would like to see Pulm[facility]sleep at [facility] as difficulty getting in consistently at [place] and most of her care is now [facility] Assessment & Plan (02/18/2020 9:44 PM CDT): Continue CPAP Assessment & Plan (08/13/2019 8:46 AM PASTING MACHINE OPERATOR): Using the CPAP. Has equipment as needed. [...] examination. Assessment & Plan (08/23/2024 12:54 PM PASTING MACHINE OPERATOR): Moderate cdai with report of increasing pain, [...] needed. Assessment & Plan (07/30/2024 11:22 AM PASTING MACHINE OPERATOR): Moderate cdai with report of increased morning [...] with labs near her home ([facility] in [place]), but the following month will need to plan for an in person visit. She expressed understanding and agreement with this plan. Continue methotrexate 20 mg weekly, folic acid 2 mg daily, and hydroxychloroquine 200 mg BID. Labs today as below. Assessment & Plan (05/07/2024 8:55 PM PASTING MACHINE OPERATOR): Managed by [facility]. Currently on Plaquenil and methotrexate and Orencia folic acid Mobic and gabapentin. 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 Assessment & Plan (04/21/2024 8:49 PM CDT): Continue per [facility]. They currently manage her rheumatoid arthritis [...] Plan (01/22/2024 8:17 PM CDT): Continue per [facility] as they manage her condition. Assessment & Plan (11/24/2023 9:58 AM CDT): Low cdai without inflammatory sounding pain. Will continue methotrexate 20 mg weekly, folic acid 2 mg daily, hydroxychloroquine 200 mg BID, and Orencia and monitor. Labs today as below. Follow up in 3 months or sooner as needed. Assessment & Plan (09/06/2023 9:42 AM PASTING MACHINE OPERATOR): Rheumatoid arthritis is managed by [facility]. Currently on Plaquenil methotrexate Orencia and folic acid Assessment & Plan (09/01/2023 3:39 PM PASTING MACHINE OPERATOR): Overall stable without notable synovitis and no inflammatory sounding pain. Will continue methotrexate 20 mg weekly, folic acid 2 mg daily, hydroxychloroquine 200 mg BID, and Orencia and monitor. Labs today as below. Follow up in 3 months or sooner as needed. Assessment & Plan (08/03/2023 8:28 AM PASTING MACHINE OPERATOR): Continue with rheumatology. Assessment & Plan (06/30/2023 12:43 PM PASTING MACHINE OPERATOR): Overall stable without notable synovitis and no inflammatory sounding pain. Will continue methotrexate 20 mg weekly, folic acid 2 mg daily, hydroxychloroquine 200 mg BID, and Orencia and monitor. Labs today as below. Assessment & Plan (06/02/2023 4:49 PM PASTING MACHINE OPERATOR): Continue per Rheumatology Assessment & Plan (04/06/2023 7:35 PM CDT): Continue per Rheumatology. She has been in discussion with them on what medications to stop prior to her knee surgery. She states she was told to take all of her medicines accept the Orencia. Assessment & Plan (01/20/2023 8:12 PM CDT): Continue per Rheumatology [facility] Assessment & Plan (01/13/2023 3:42 [...] Plan (09/12/2022 6:06 PM CDT): Continue with [facility] Assessment & Plan (07/15/2022 1:41 PM PASTING MACHINE OPERATOR): Low cdai. Significantly improved after IM triamcinolone [...] needed. Assessment & Plan (06/03/2022 3:37 PM PASTING MACHINE OPERATOR): High cdai. Previously felt well controlled with current regimen. Due to burden of disease will give patient a triamcinolone injection. 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 Should she flare again shortly after [...] (01/23/2022 4:57 PM CDT): Continue management per [facility] Assessment & Plan (12/07/2021 9:02 AM CDT): Low cdai. Denies inflammatory sounding joint pain. Continue methotrexate 25 mg weekly, folic acid to 2 mg daily, Rinvoq 15 mg daily, hydroxychloroquine 200 mg BID, and cyclobenzaprine 5 mg qhs and monitor. Labs today as below. Plan for follow up in 3 months or sooner as needed. Assessment & Plan (09/11/2021 11:14 PM PASTING MACHINE OPERATOR): Continue per [facility] Assessment & Plan (09/03/2021 11:25 AM PASTING MACHINE OPERATOR): cdai = 12. Pt suspects increased joint [...] needed. Assessment & Plan (06/04/2021 10:25 AM PASTING MACHINE OPERATOR): Low cdai. Denies inflammatory sounding pain at present. Will plan to continue methotrexate 25 mg weekly, folic acid to 2 mg daily, Rinvoq 15 mg daily, hydroxychloroquine 200 mg BID, and cyclobenzaprine 5 mg qhs and monitor. Labs today as below. Plan for follow up in 3 months or sooner as needed. Assessment & Plan (05/31/2021 9:15 PM PASTING MACHINE OPERATOR): Continue per Rheumatology Assessment & Plan (05/29/2021 8:13 PM PASTING MACHINE OPERATOR): Continue per Rheumatology. Currently on Plaquenil methotrexate and folic acid. Assessment & Plan (05/24/2021 10:38 AM PASTING MACHINE OPERATOR): Continue per Rheumatology Assessment & Plan (03/05/2021 [...] needed. Assessment & Plan (09/03/2020 12:22 PM PASTING MACHINE OPERATOR): Low cdai. Continues to feel improved with [...] needed. Assessment & Plan (08/31/2020 9:34 AM PASTING MACHINE OPERATOR): Continue per [facility] Assessment & Plan (07/09/2020 12:22 PM PASTING MACHINE OPERATOR): 64yoF with a h/o seropositive RA diagnosed [...] time. Assessment & Plan (06/04/2020 11:14 AM PASTING MACHINE OPERATOR): 64yoF with a h/o seropositive RA diagnosed [...] needed. Assessment & Plan (05/14/2020 9:33 PM PASTING MACHINE OPERATOR): Refer to new Control Clerk Subassembly as Dr. Soto has . Assessment & Plan (02/18/2020 9:46 PM CDT): Continue per Rheum Assessment & Plan (08/13/2019 8:59 AM PASTING MACHINE OPERATOR): Continue per Dr. Soto Assessment & Plan [...] responding to Reclast. Forteo was tried by [facility] and she could not tolerate. Has [...] of her osteoporosis, recommended evaluation by the [facility], unfortunately their first available appt was in November 2024. Recommended today that she check with [facility] (at [facility]) to see how far out they are scheduling new patients, though she does not like this option due to distance from her house. Assessment & Plan (09/06/2023 9:40 AM PASTING MACHINE OPERATOR): Managed by [facility]. Per patient they are making a referral to bone metabolism at [facility] she has not seen significant improvement with the Forteo or the Reclast. Assessment & Plan (09/01/2023 3:43 PM PASTING MACHINE OPERATOR): DEXA: Lspine BMD 0.809 Tscore -2.2, L [...] of her osteoporosis, recommend evaluation by the [facility], provided contact info for Dr. Castillo. Pt in agreement with plan. Assessment & Plan (06/30/2023 12:49 PM PASTING MACHINE OPERATOR): DEXA: Lspine BMD 0.809 Tscore -2.2, L [...] PM CDT): Continue to monitor. Managed by [facility]. Patient is on Reclast calcium vitamin-D [...] exercise Assessment & Plan (07/15/2022 1:42 PM PASTING MACHINE OPERATOR): 01/27/2021 DEXA: Lspine -1.8, L femoral neck -1.9, L total hip -1.2, R femoral neck -2.3, R total hip -1.0, FRAX major 32% and hip 7%. Received Reclast 07/2021. Continue yearly Reclast, scheduled for 07/22 Assessment & Plan (06/03/2022 3:38 PM PASTING MACHINE OPERATOR): 01/27/2021 DEXA: Lspine -1.8, L femoral neck [...] Plan (01/23/2022 5:02 PM CDT): Managed by [facility] currently on Reclast calcium and vitamin-D Assessment & Plan (12/07/2021 9:04 AM CDT): 01/27/2021 DEXA: Lspine -1.8, L femoral neck -1.9, L total hip -1.2, R femoral neck -2.3, R total hip -1.0, FRAX major 32% and hip 7%. Received Reclast 07/2021. Continue yearly Reclast. Assessment & Plan (09/03/2021 11:26 AM PASTING MACHINE OPERATOR): 01/27/2021 DEXA: Lspine -1.8, L femoral neck -1.9, L total hip -1.2, R femoral neck -2.3, R total hip -1.0, FRAX major 32% and hip 7%. Received Reclast 07/2021. Continue yearly reclast and daily vitamin D-calcium supplement. Assessment & Plan (06/04/2021 10:27 AM PASTING MACHINE OPERATOR): 01/27/2021 DEXA: Lspine -1.8, L femoral neck [...] order provided today, she will schedule at [facility] Assessment & Plan (12/24/2020 9:06 AM CDT): Continue Reclast thru Rheum Continue calcium, vitD and exercise Assessment & Plan (12/03/2020 10:45 AM CDT): Vitamin D level was 68. Received Reclast 07/09/2020. Last DEXA per available records was 01/31/2019, due this summer - order provided today, she will schedule at [facility] Assessment & Plan (09/03/2020 12:23 PM PASTING MACHINE OPERATOR): Vitamin D level was 68. Received Reclast 07/09/2020. Last DEXA per available records was 01/31/2019, due this summer. Assessment & Plan (07/09/2020 12:23 PM PASTING MACHINE OPERATOR): Overdue for Reclast, last infusion was 03/28/2019, will receive infusion today. Vitamin D level was 68 Last DEXA per available records was 01/31/2019 Assessment & Plan (06/04/2020 11:15 AM PASTING MACHINE OPERATOR): Overdue for Reclast, last infusion was 03/28/2019, will check benefits. Recheck vitamin D level now. Last DEXA per available records was 01/31/2019 Assessment & Plan (02/18/2020 9:46 PM CDT): Calcium, vit D and exercise. Continue to monitor DXA Assessment & Plan (08/13/2019 8:58 AM PASTING MACHINE OPERATOR): Continue with Calcium, Vit D and Exercise. Recheck DXA iin Fall 2019 with mammogram Resolved Problems Problem Noted Date Diagnosed Date Resolved Date Encounter for pre-operative examination 05/07/2024 10/09/2024 Assessment & Plan (05/07/2024 8:57 PM PASTING MACHINE OPERATOR): I have examined this patient and ordered [...] Krishnamurthy. 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 Daniels Stressed importance of very close follow-up BMI 37.0-37.9, adult 09/06/2023 024 Assessment & Plan (10/13/2023 7:38 AM CDT): Discussed the patient's BMI. The BMI is above average. BMI management plan is completed. BMI Follow-up includes: nutrition counseling, exercise counseling and education provided. Assessment & Plan (09/06/2023 9:42 AM PASTING MACHINE OPERATOR): Discussed the patient's BMI. The BMI is above average. BMI management plan is completed. BMI Follow-up includes: nutrition counseling, exercise counseling and education provided. Hyperglycemia 09/06/2023 09/06/2023 Positive depression screening 09/06/2023 09/06/2023 Annual physical exam 09/06/2023 024 Assessment & Plan (09/06/2023 9:43 AM PASTING MACHINE OPERATOR): Encouraged healthy lifestyle, good nutrition and exercise. Encouraged Calcium and Vitamin D and weight bearing exercise for bone health. Reviewed immunizations Reviewed age appropirate screenings. Orthopedic aftercare 08/09/2023 025 Right knee pain 08/09/2023 09/06/2023 Sinus congestion 08/07/2023 09/06/2023 Assessment & Plan (08/07/2023 7:54 PM PASTING MACHINE OPERATOR): Persistent sinusitis symptoms along with cough. Will start doxy b.i.d.. Start antihistamine (Claritin OR Zyrtec), Mucinex 12hour and Steroid nasal spray (Flonase). Push fluids. Rest. Supportive care. If sxs worsen or don\'t improve, pt is to followup in the office. Acute cough 08/07/2023 01/22/2024 Assessment & Plan (08/07/2023 7:55 PM PASTING MACHINE OPERATOR): Persistent sinusitis symptoms along with cough. Will start doxy b.i.d.. Start antihistamine (Claritin OR Zyrtec), Mucinex 12hour and Steroid nasal spray (Flonase). Push fluids. Rest. Supportive care. If sxs worsen or don\'t improve, pt is to followup in the office. BMI 35.0-35.9,adult 08/03/2023 09/06/19 24 Assessment & Plan (08/07/2023 7:51 PM PASTING MACHINE OPERATOR): Discussed the patient's BMI. The BMI is above average. BMI management plan is completed. BMI Follow-up includes: nutrition counseling, exercise counseling and education provided. Assessment & Plan (08/03/2023 8:29 AM PASTING MACHINE OPERATOR): Discussed the patient's BMI. The BMI is [...] 01/22/2024 Assessment & Plan (06/02/2023 4:57 PM PASTING MACHINE OPERATOR): Later in the day received critical lab call for a CO2 value at 42. My staff contacted the patient and she was instructed to go to the ER for further evaluation to determine underlying cause. She states throughout the day she has noticed a little bit more shortness of breath. [facility] Charge nurse was notified of the [...] surgery. 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 Her chronic medical conditions are stable. [facility] as instructed her to hold the [...] [place] on May 04 at [facility]. Need for vaccination for Strep pneumoniae [...] symptoms worsen or do not respond to [id number] allergy medicines within the next week she [...] provided. Assessment & Plan (08/23/2022 2:19 PM PASTING MACHINE OPERATOR): Discussed the patient's BMI. The BMI is [...] plans Assessment & Plan (07/18/2022 10:20 AM PASTING MACHINE OPERATOR): CT revealed pelvic lipomatosis that is compressing [...] 12/20/2022 Assessment & Plan (07/18/2022 10:21 AM PASTING MACHINE OPERATOR): CT revealed pelvic lipomatosis that is compressing [...] plan, Assessment & Plan (07/08/2022 12:33 PM PASTING MACHINE OPERATOR): Patient has had dysuria. She was started [...] STAT abd/pelvis with and without contrast at [place]. Check labs STAT. Acute right flank pain 07/08/202204/06 Assessment & Plan (07/18/2022 10:21 AM PASTING MACHINE OPERATOR): CT revealed pelvic lipomatosis that is compressing [...] plan, Assessment & Plan (07/08/2022 5:58 PM PASTING MACHINE OPERATOR): Images from the original note were not [...] STAT abd/pelvis with and without contrast at [place]. Check labs STAT. STAT CT Abd/pelvis without [...] 09/06/2023 Assessment & Plan (07/08/2022 12:33 PM PASTING MACHINE OPERATOR): Patient has had dysuria. She was started [...] STAT. Assessment & Plan (07/06/2022 8:50 AM PASTING MACHINE OPERATOR): Pt presents with dysuria. Urine dip completed. [...] 35.00-39.99. Assessment & Plan (07/18/2022 10:23 AM PASTING MACHINE OPERATOR): Discussed the patient's BMI. The BMI is above average. BMI management plan is completed. BMI Follow-up includes: nutrition counseling, exercise counseling and education provided. Assessment & Plan (07/08/2022 12:30 PM PASTING MACHINE OPERATOR): Discussed the patient's BMI. 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 She has quite a few lesions scattered and would benefit from a full exam. Will make referral Annual physical exam 09/11/2021 022 Assessment & Plan (09/11/2021 11:28 PM PASTING MACHINE OPERATOR): Encouraged healthy lifestyle, good nutrition and exercise. Encouraged Calcium and Vitamin D and weight bearing exercise for bone health. Reviewed immunizations Reviewed age appropirate screenings. Cough 08/13/2021 01/23/2022 Assessment & Plan (08/13/2021 3:43 PM PASTING MACHINE OPERATOR): Patient to presume positive COVID/FLU until results are available and plan to self isolate for up to 10 days from the onset of sxs. Check COVID/FLU test thru [facility] collection site in [place]. Let pt know the newest CDC recommendations [...] future. Assessment & Plan (07/13/2021 11:28 AM PASTING MACHINE OPERATOR): I have ordered the patient Claritin 10 [...] provided. Assessment & Plan (09/11/2021 11:27 PM PASTING MACHINE OPERATOR): Obesity is unchanged. Discussed the patient's BMI. The BMI is above average. BMI management plan is completed. BMI Follow-up includes: nutrition counseling, exercise counseling and education provided. Assessment & Plan (05/29/2021 8:24 PM PASTING MACHINE OPERATOR): Obesity is unchanged. Discussed the patient's BMI. The BMI is above average. BMI management plan is completed. BMI Follow-up includes: nutrition counseling, exercise counseling and education provided. Assessment & Plan (05/12/2021 1:26 PM PASTING MACHINE OPERATOR): Obesity is unchanged. Discussed the patient's BMI. The BMI is above average. BMI management plan is completed. BMI Follow-up includes: nutrition counseling, exercise counseling and education provided. BMI 37.0-37.9, adult 05/12/2021 022 Assessment & Plan (09/11/2021 11:27 PM PASTING MACHINE OPERATOR): Obesity is unchanged. Discussed the patient's BMI. The BMI is above average. BMI management plan is completed. BMI Follow-up includes: nutrition counseling, exercise counseling and education provided. Assessment & Plan (05/29/2021 8:24 PM PASTING MACHINE OPERATOR): Obesity is unchanged. Discussed the patient's BMI. The BMI is above average. BMI management plan is completed. BMI Follow-up includes: nutrition counseling, exercise counseling and education provided. Assessment & Plan (05/12/2021 1:26 PM PASTING MACHINE OPERATOR): Obesity is unchanged. Discussed the patient's BMI. The BMI is above average. BMI management plan is completed. BMI Follow-up includes: nutrition counseling, exercise counseling and education provided. Tinea corporis 04/14/2021 01/23/2022 Assessment & Plan (05/31/2021 9:15 PM PASTING MACHINE OPERATOR): Improving with Lotrisone. Keep the area clean and dry Assessment & Plan (05/29/2021 8:24 PM PASTING MACHINE OPERATOR): Lotrisone to pharmacy. Encouraged her to keep the area clean and dry use her dryer to dry the skin before applying the cream. She is to call if symptoms worsen or do not resolve. Need for immunization against influenza 04/14/2021 05/31/2021 Assessment & Plan (05/29/2021 8:24 PM PASTING MACHINE OPERATOR): Fluid updated in the office Medicare annual wellness visit, subsequent 04/13/2021 05/31/2021 Assessment & Plan (05/29/2021 8:23 PM PASTING MACHINE OPERATOR): Encouraged healthy lifestyle, good nutrition and exercise. [...] 12/30/2020 Assessment & Plan (08/31/2020 9:31 AM PASTING MACHINE OPERATOR): Error. This should be right calf but PT order sent and corrected so unable to remove. Fatigue 08/31/2020 09/06/2023 Assessment & Plan (04/06/2023 7:43 PM CDT): Probably multifactorial. Check labs and followup to re-evaluate Assessment & Plan (05/02/2022 9:16 PM CDT): Probably multifactorial. Check labs and followup to re-evaluate Assessment & Plan (08/31/2020 9:34 AM PASTING MACHINE OPERATOR): Probably multifactorial. Check labs and followup to re-evaluate Pain in both lower extremities 08/31/2020 09/06/2023 Assessment & Plan (09/01/2023 3:41 PM PASTING MACHINE OPERATOR): Cramping lower leg pain has resolved with [...] 200 mg qAM. BMI 40.0-44.9, adult 08/31/2020 03// 021 Assessment & Plan (08/31/2020 9:33 AM PASTING MACHINE OPERATOR): Obesity is unchanged. Discussed the patient's BMI. The BMI is above average. BMI management plan is completed. BMI Follow-up includes: nutrition counseling, exercise counseling and education provided. Pain of right calf 08/26/2020 Assessment & Plan (08/31/2020 9:31 AM PASTING MACHINE OPERATOR): This is a significant, separately identifiable problem that was evaluated and managed on the same day as the wellness exam Unable to rule out DVT with her calf pain/sxs. Check STAT Venous doppler. Recvd Results and discussed with patient via phone. Negative for DVT. Recommend PT. Prefers [place] Annual physical exam 08/24/2020 021 Assessment & Plan (08/31/2020 9:34 AM PASTING MACHINE OPERATOR): Encouraged healthy lifestyle, good nutrition and exercise. Encouraged Calcium and Vitamin D and weight bearing exercise for bone health. Reviewed immunizations Reviewed age appropirate screenings. Dizziness 05/07/2020 09/06/2023 Assessment & Plan (05/14/2020 9:35 PM PASTING MACHINE OPERATOR): Suspect the dizziness is inner ear related. [...] imaging. Assessment & Plan (05/07/2020 1:49 PM PASTING MACHINE OPERATOR): Declines to report to er now 'I [...] 05/14/2020 Assessment & Plan (05/07/2020 1:49 PM PASTING MACHINE OPERATOR): Declines to report to er now 'I [...] 12/30/2020 Assessment & Plan (05/07/2020 1:49 PM PASTING MACHINE OPERATOR): Declines to report to er now 'I [...] provided Assessment & Plan (05/31/2021 9:15 PM PASTING MACHINE OPERATOR): Mammogram order provided Assessment & Plan (02/18/2020 9:47 PM CDT): Mammogram order provided today Medicare annual wellness visit, subsequent 02/15/2020 02/15/2020 Precordial pain 09/04/2019 09/06/2023 Assessment & Plan (08/07/2023 7:50 PM PASTING MACHINE OPERATOR): Workup in the hospital. Cardiology states her [...] inhaler. Assessment & Plan (07/13/2021 11:26 AM PASTING MACHINE OPERATOR): The patient will continue with Dulera 2 [...] 020 Assessment & Plan (08/13/2019 8:59 AM PASTING MACHINE OPERATOR): Encouraged healthy lifestyle, good nutrition and exercise. Encouraged Calcium and Vitamin D and weight bearing exercise for bone health. Reviewed immunizations Reviewed age appropirate screenings. Obesity, morbid, BMI 40.0-49.9 08/13/2019 09/23/2020 Assessment & Plan (08/26/2020 7:10 AM PASTING MACHINE OPERATOR): Obesity is unchanged. Discussed the patient's BMI. The BMI is above average. BMI management plan is completed. BMI Follow-up includes: nutrition counseling, exercise counseling and education provided. Assessment & Plan (05/14/2020 9:33 PM PASTING MACHINE OPERATOR): Obesity is unchanged. Discussed the patient's BMI. [...] provided. Assessment & Plan (08/13/2019 8:58 AM PASTING MACHINE OPERATOR): Obesity is unchanged. Discussed the patient's BMI. [...] change Assessment & Plan (08/13/2019 9:01 AM PASTING MACHINE OPERATOR): This is a significant, separately identifiable problem [...] 01/22/2024 Assessment & Plan (09/06/2023 9:42 AM PASTING MACHINE OPERATOR): Probably multifactorial. Check labs and followup to re-evaluate Assessment & Plan (09/03/2021 11:28 AM PASTING MACHINE OPERATOR): She notes increased fatigue and lack of [...] re-evaluate Assessment & Plan (08/13/2019 9:08 AM PASTING MACHINE OPERATOR): Probably multifactorial. Check labs and followup to re-evaluate Check labs prior to next visit BMI 40.0-44.9, adult 08/02/2019 020 Assessment & Plan (08/13/2019 8:57 AM PASTING MACHINE OPERATOR): Obesity is unchanged. Discussed the patient's BMI. The BMI is above average. BMI management plan is completed. BMI Follow-up includes: nutrition counseling, exercise counseling and education provided. Assessment & Plan (08/02/2019 7:21 AM PASTING MACHINE OPERATOR): Obesity is unchanged. Discussed the patient's BMI. The BMI is above average. BMI management plan is completed. BMI Follow-up includes: nutrition counseling, exercise counseling and education provided. Morbid obesity 08/02/2019 08/13/2019 Assessment & Plan (08/02/2019 7:20 AM PASTING MACHINE OPERATOR): Obesity is unchanged. Discussed the patient's BMI. The BMI is above average. BMI management plan is completed. BMI Follow-up includes: nutrition counseling, exercise counseling and education provided. Acute non-recurrent maxillary sinusitis 08/02/2019 08/13/2019 Assessment & Plan (08/02/2019 7:47 AM PASTING MACHINE OPERATOR): Start antibiotic, antihistamine, Mucinex and Steroid nasal [...] is being sent directly to [facility] and they were working her in [...] 21 Assessment & Plan (05/14/2020 9:33 PM PASTING MACHINE OPERATOR): Completed Doxy and steroid. No s/s infection. [...] p.r.n. 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 She is on aspirin and statin Assessment & Plan (12/24/2020 9:03 AM CDT): Sxs stable. On ASA, statin and encouraged daily exercise. Assessment & Plan (02/18/2020 9:43 PM CDT): Continue per cardio. On ASA and statin Assessment & Plan (08/13/2019 8:45 AM PASTING MACHINE OPERATOR): Continues with Dr. Alonso salmeron Assessment & Plan (11/01/2018 11:00 PM CDT): Pt sxs well controlled. 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 Continue per cardio Depression 07/16/2018 09/11/2021 Frontal sinusitis 06/26/2018 12/24/2020 Leukopenia 03/29/2018 12/30/2020 Other chronic pain 08/05/2017 3 Chronic seasonal allergic rh initis due to pollen 04/25/2017 12/30/2020 Assessment & Plan (12/24/2020 9:03 AM CDT): Continue current regimen with singulair and otc Assessment & Plan (02/18/2020 9:44 PM CDT): Continue with otc regimen Assessment & Plan (08/13/2019 8:46 AM PASTING MACHINE OPERATOR): Continue current regimen Assessment & Plan (11/01/2018 [...] potassium Assessment & Plan (09/11/2021 11:26 PM PASTING MACHINE OPERATOR): Bp is stable/in acceptable range for any co-morbidities. Encouraged to limit sodium intake and exercise for weight control. Currently stable without medication Assessment & Plan (05/29/2021 8:19 PM PASTING MACHINE OPERATOR): Bp is stable/in acceptable range for any co-morbidities. Encouraged to limit sodium intake and exercise for weight control. Continue Lasix is helping with the swelling and addition. Blood pressure stable Assessment & Plan (05/24/2021 10:38 AM PASTING MACHINE OPERATOR): Continue Lasix potassium Assessment & Plan (12/24/2020 9:05 AM CDT): Bp is stable/in acceptable range for any co-morbidities. Encouraged to limit sodium intake and exercise for weight control. Assessment & Plan (08/31/2020 9:32 AM PASTING MACHINE OPERATOR): Bp is stable/in acceptable range for any co-morbidities. Encouraged to limit sodium intake and exercise for weight control. Stable with laxis currently Assessment & Plan (02/18/2020 9:44 PM CDT): Bp is stable/in acceptable range for any co-morbidities. Encouraged to limit sodium intake and exercise for weight control. Assessment & Plan (08/13/2019 8:57 AM PASTING MACHINE OPERATOR): Bp is stable/in acceptable range for any [...] difficulty pulling them. Recommend finding some on [employer] that fit her calf that she can zip on and off. Showed them to her on [employer] and where to order them. She states she will try to get them. Assessment & Plan (05/31/2021 9:16 PM PASTING MACHINE OPERATOR): Improving slowly. May have been due to the Relafen. She is on 60 of Lasix with potassium 10 mEq daily. Continue with current plan. Keep legs elevated. Utilize compressi to improve cleared. on hose. Call if symptoms worsen or do not continue to improve. Assessment & Plan (05/29/2021 8:23 PM PASTING MACHINE OPERATOR): Persistent lower extremity edema that has improved [...] CMP. Assessment & Plan (05/24/2021 10:39 AM PASTING MACHINE OPERATOR): Patient that her swelling was improving since discharge for over the last day or so it seems to be increasing. Will increase the Lasix to 40mg Start K 10meq daily Recheck labs in 5 days Assessment & Plan (08/31/2020 9:33 AM PASTING MACHINE OPERATOR): Continue lasix Palpitations 12/08/2015 12/30/2020 Overview (10/09/2016): Palpitations Other abnormal glucose 11/11/201508/31 Asthma 10/14/2015 12/24/2020 Assessment & Plan (08/13/2019 8:49 AM PASTING MACHINE OPERATOR): Continue with current regimen and with Pulmonary [...] noted. Assessment & Plan (08/23/2024 10:16 AM PASTING MACHINE OPERATOR): 02/2021 XR L knee with mild to moderate OA, now s/p B TKA. Following with ortho as planned. Assessment & Plan (07/30/2024 11:23 AM PASTING MACHINE OPERATOR): 02/2021 XR L knee with mild to [...] March. Assessment & Plan (09/01/2023 3:42 PM PASTING MACHINE OPERATOR): 02/2021 XR L knee with mild to moderate OA, R knee negative. Had injections with ortho without benefit, now s/p L TKA. Assessment & Plan (06/30/2023 12:46 PM PASTING MACHINE OPERATOR): 02/2021 XR L knee with mild to [...] g/d. Assessment & Plan (07/15/2022 1:41 PM PASTING MACHINE OPERATOR): 02/2021 XR L knee with mild to moderate OA, R knee negative. Had injections with ortho with benefit. Unable to afford PT. Can continue Tylenol Arthritis, not to exceed 4 g/d. Assessment & Plan (06/03/2022 9:58 AM PASTING MACHINE OPERATOR): 02/2021 XR L knee with mild to [...] evaluation. Assessment & Plan (09/03/2021 11:27 AM PASTING MACHINE OPERATOR): XR L knee with mild to moderate [...] able. Assessment & Plan (06/04/2021 10:27 AM PASTING MACHINE OPERATOR): XR L knee with mild to moderate [...] above. Assessment & Plan (09/03/2020 12:23 PM PASTING MACHINE OPERATOR): 10/27/2017 XR L knee: mild tricompartmental OA. Will continue meloxicam as above. Assessment & Plan (07/09/2020 12:24 PM PASTING MACHINE OPERATOR): 10/27/2017 XR L knee: mild tricompartmental OA. Will continue meloxicam as above. In the future may consider trial of PT. Encounters Date Type Department Care Team Description 10/12/2024 Results Follow-Up [address] [place] [phone] Alee Elizondo PA 10/10/2024 7:30 AM CDT Office Visit [address] [place] [phone] Alee Elizondo PA Annual physical exam (Primary Dx); 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); Age-related osteoporosis without current pathological fracture; OWEN on CPAP; Moderate episode of recurrent major depressive disorder (HCC); Mixed hyperlipidemia; Pre-diabetes; Gastroesophageal reflux disease without esophagitis; Pelvic lipomatosis; BMI 35.0-35.9,adult; Morbid obesity (HCC) 10/10/[address] [place] [phone] Alee Elizondo PA Medication Request 10/07/2024 Orders Only [facility] Health Information Management [address] [place] [phone] Alee Elizondo PA 10/04/2024 Results Follow-Up [address] [place] [phone] Alee Elizondo PA 10/04/2024 Orders Only [address] [place] [phone] Tania Michael MD 10/03/[address] [place] [phone] Alee Elizondo PA 09/26/2024 Orders Only [address] [place] [phone] Alee Elizondo PA Breast cancer screening by mammogram (Primary Dx) 09/25/2024 11:00 AM CDT Office Visit [facility] at [address] [phone] Jessica Collins NP Influenza A (Primary Dx); Acute cough 09/25/2024 Results Follow-Up [facility] [address] [place] [phone] Alee Elizondo PA 09/20/2024 8:00 AM CDT Office Visit [facility] Card[facility] [address] [place] [address] Devika Marin MD Venous insufficiency (chronic) (peripheral) (Primary Dx); Mixed hyperlipidemia 09/20/2024 Telephone [facility] [address] [place] [phone] Michael Motta MD med clarification 09/14/[address] [phone] Codi Branham higinio 09/13/2024 2:45 PM CDT Office Visit [facility] [address] [place] [phone] Michael Motta MD Chronic pain of right knee (Primary Dx); History of total knee arthroplasty, right 09/13/2024 1:44 PM CDT - 09/13/2024 11:59 PM CDT Hospital Encounter [facility] Di[facility] Imaging [address] [place] [phone] Chronic pain of right knee Discharge Disposition: Discharge to home or self care 09/04/2024 Results Follow-Up [facility] [address] [place] [address] Alee Elizondo PA 08/31/2024 Telephone [facility] [address] [place] [address] [address] [place] [phone] Alee Elizondo PA Medical Question/Miscellaneou s 08/31/2024 Orders Only [address] [phone] ProviderTania MD 08/29/2024 Nurse Triage [address] [place] [phone] Alee Elizondo PA 08/29/[address] [phone] Shailesh Dunn MD Med Refill (Ropinirol HCL 0.5MG tab) 08/24/2024 Results Follow-Up [facility] [address] [place] [phone] Sangita Farrar PA 08/23/2024 11:30 AM PASTING MACHINE OPERATOR Office Visit [facility] [address] [place] [phone] Sangita Farrar PA 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) (Primary Dx); Primary osteoarthritis involving multiple joints; Encounter for medication monitoring 08/23/2024 Orders Only [facility] Health Information Management [address] [place] [phone] Alee Elizondo PA 08/23/[address] [phone] Sangita Farrar PA Orencia Approved 08/21/[address] [phone] Codi Branham 08/02/2024 11:45 AM PASTING MACHINE OPERATOR Office Visit [address] [phone] Magaly Snider NP OWEN on CPAP (Primary Dx); OWEN (obstructive sleep apnea); PLMD (periodic limb movement disorder) 08/02/2024 Telephone [facility] [place] [address] [place] [address] Shailesh Dunn MD Orders Only 08/01/2024 Orders Only [facility] [address] [place] [phone] Alee Elizondo PA Pre-diabetes (Primary Dx); Mixed hyperlipidemia; Fatigue, unspecified type 07/30/2024 9:00 AM PASTING MACHINE OPERATOR Office Visit [facility] [address] [place] [phone] Sangita Farrar PA 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) (Primary Dx); Primary osteoarthritis involving multiple joints; Encounter for medication monitoring 07/24/2024 2:00 PM PASTING MACHINE OPERATOR Office Visit [facility] [address] [place] [address] [address] [place] [phone] Michael Motta MD Status post total knee replacement using cement, right (Primary Dx) 07/24/2024 1:27 PM PASTING MACHINE OPERATOR - 07/24/2024 11:59 PM PASTING MACHINE OPERATOR Hospital Encounter [facility] Diag Imaging [address] [place] [address] Status post total knee replacement using cement, right Discharge Disposition: Discharge to home or self care 07/24/2024 Telephone [facility] [address] [facility] [address] [place] [address] Alee Elizondo PA Referral Request (/) from Last 3 Months Immunizations Immunization Administration Dates Next Due COVID-19 mRNA ([employer]) 0.3 m L (30 mcg) vaccine (12 [...] drink = 0.6 oz pur e alcohol) [facility] Utilities Answer Date Recorded In the past 12 months has th e [employer], gas, oil, or water [employer] threatened to shut off services in your home? No 05/30/2024 Social Connection and Isolation Panel [NHANES] A nswer Date Recorded In a typical week, how many times do you talk on the phone with family, friends, or neighbors? Twice a week 05/30/20 How often do you get togethe r with friends or relatives? Twice a week 05/30/2024 How often do you attend [facility] or taoism services? 1 to 4 times per year 05/30/2024 Do you belong to any clubs o r organizations such as congregation groups, unions, fraternal or athletic groups, or [...] any time in the past 12 m [facility], were you homeless or living [...] on file Legal Sex Female 8:04 PM PASTING MACHINE OPERATOR Gender Identity Female 02/15/2020 6:08 [...] 10/10/2024 7:40 AM CDT Plan of Treatment Health Maintenance Due Date Last Done Comments Hepatitis B Screening 1973 Covid-19 Vaccine ( season) 2024 08/17/2023, 04/14/2023, 04/14/2023, Additional history exists Well Visit 65+ 04/11/2025 04/11/2024, 03/0 11/2023, 04/06/2023, Additional history exists Osteoporosis Screening-Bone Density Scan 04/12/2025 04/12/2023, 01/27/2017, 07/11/2014 Breast Cancer Screening-Mammogram 10/04/2025 10/04/2024, 08/02/2023, 05/31/2022, Additional history exists Depression Screening 10/10/2025 10/10/2024, 05/01/2024, 04/11/2024, Additional history exists Fall Risk Assessment 10/10/2025 10/10/2024, 06/05/2024, 04/11/2024, Additional history exists Colon Cancer Screening-Colonoscopy 07/27/2026 [...] history exists Medical Devices Implanted Type Area Mercury Cell Cleaner Device Identifier Shelf Expiration Date Model / Serial / Lot [employer] Simplex P Radiopaque Full Dose Cement Bone Sterile 6191-1-010 - [id number] Implanted:Qty: 2 on 05/04/2023 by Michael Motta MD at [facility] Bone Cement Left: Knee [employer] 05/03/2025 6191-1-010 / 6191-1-001 / [id number] [employer] Simplex P Radiopaque Full Dose Cement Bone Sterile 6191-1-010 - [id number] Implanted:Qty: 2 on 05/30/2024 by Michael Motta MD at [facility] Bone Cement Right: Patella [employer] [id number] 05/03/2026 6191-1-010 / / [id number] [employer] Persona 14mm 30+ Mm Knee Tibia Taper Extension Stem [id number] - [id number] 4 - [id number] Implanted:Qty: 1 on 05/04/2023 by Michael Motta MD at [facility] Left: Knee [employer] [id number] 02/15/2033 [id number] / [id number]- 14 / [id number] [employer] Persona Cemented Cruciate Retaining Knee Left 7 Narrow Component [id number] - U09-6974-723-6 1 - [id number] Implanted:Qty: 1 on 05/04/2023 by Michael Motta MD at [facility] Left: Knee [employer] [id number] 10/25/2032 [id number] / 64-1139-292- 01 / [id number] [employer] Baseplate Tibial Knee Cemented Left Fixed Stemmed Persona Size D Tivanium [id number] - A32-1914-888-8 1 - [id number] Implanted:Qty: 1 on 05/04/2023 by Michael Motta MD at [facility] Left: Knee [employer] [id number] 09/11/2032 [id number] / 24-7060-277- 01 / [id number] [employer] Persona 11mm Knee Left 6-7 C-D Insert Articular Vivacit-E Sterile [id number] - X22-9377-154-2 1 - [id number] Implanted:Qty: 1 on 05/04/2023 by Michael Motta MD at [facility] Left: Knee [employer] [id number] 12/28/2025 [id number] / [id number]- 11 / [id number] [employer] Persona 32mm Knee Component Patellar All Poly Latex Free 64-6915-768-32 - [id number] Implanted:Qty: 1 on 05/04/2023 by Michael Motta MD at [facility] [employer] 12/19/2027 [id number] / / [id number] [employer] Baseplate Tibial Knee Cemented Right Fixed Stemmed Persona Size C Tivanium [id number] - [id number] Implanted:Qty: 1 on 05/30/2024 by Michael Motta MD at [facility] Right: Knee [employer] [id number] 03/22/2033 [id number] / / [id number] [employer] Persona 29mm Knee Component Patellar All Poly Latex Free [id number] - [id number] Implanted:Qty: 1 on 05/30/2024 by Michael Motta MD at [facility] Right: Knee [employer] [id number] 12/18/2028 [id number] / / [id number] [employer] Persona 13mm Cruciate Retain Knee Right 6-7 Cd Insert Articular Latex Free [id number] - [id number] Implanted:Qty: 1 on 05/30/2024 by Michael Motta MD at [facility] Right: Patella [employer] [id number] 05/04/2025 [id number] / / [id number] [employer] Persona Cruciate Retaining Cemented Knee Right 7 Narrow Component [id number] - [id number] Implanted:Qty: 1 on 05/30/2024 by Michael Motta MD at [facility] Right: Knee [employer] [id number] 12/27/2033 [id number] / / [id number] [employer] Persona 14mm 30+ Mm Knee Tibia Taper Extension Stem [id number] - [id number] Implanted:Qty: 1 on 05/30/2024 by Michael Motta MD at [facility] Right: Knee [employer] [id number] 04/11/2034 [id number] / / [id number] Procedures Procedure Name Priority Date/Time Associated Diagnosis [...] Read Routine (OP Routine) 08/29/2024 12:23 PM PASTING MACHINE OPERATOR COMPREHENSIVE METABOLIC PANEL Routine 08/23/2024 2:11 PM PASTING MACHINE OPERATOR Encounter for medication monitoring CBC WITH AUTO DIFFERENTIAL Routine 08/23/2024 2:11 PM PASTING MACHINE OPERATOR Encounter for medication monitoring SCAN - LABS 08/23/2024 VITAMIN B12 Routine 08/02/2024 7:41 AM PASTING MACHINE OPERATOR Fatigue, unspecified type LIPID PANEL Routine 08/02/2024 7:41 AM PASTING MACHINE OPERATOR Mixed hyperlipidemia HEMOGLOBIN A1C Routine 08/02/2024 7:41 AM PASTING MACHINE OPERATOR Pre-diabetes COMPREHENSIVE METABOLIC PANEL Routine 08/02/2024 7:41 AM PASTING MACHINE OPERATOR Mixed hyperlipidemia CBC WITH AUTO DIFFERENTIAL Routine 08/02/2024 7:41 AM PASTING MACHINE OPERATOR Fatigue, unspecified type TSH Routine 08/02/2024 7:41 AM PASTING MACHINE OPERATOR Fatigue, unspecified type ERYTHROCYTE SEDIMENTATION RATE Routine 07/30/2024 2:36 PM PASTING MACHINE OPERATOR 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) CRP (ACUTE PHASE) Routine 07/30/2024 2:3 6 PM PASTING MACHINE OPERATOR 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) COMPREHENSIVE METABOLIC PANEL Routine 07/30/2024 2:36 PM PASTING MACHINE OPERATOR Encounter for medication monitoring CBC WITH AUTO DIFFERENTIAL Routine 07/30/2024 2:36 PM PASTING MACHINE OPERATOR Encounter for medication monitoring XR KNEE RIGHT 3 VIEWS Schedule Routine, Read Routine (OP Routine) 07/24/2024 1:35 PM PASTING MACHINE OPERATOR Status post total knee replacement using cement, right DEXA AXIAL SKELETON BONE DENSITY 1 OR MORE SITES Schedule Routine, Read Routine (OP Routine) 04/12/2023 8:14 AM CDT COLONOSCOPY Routine 07/27/2021 HEPATITIS C ANTIBODY Routine 06/04/2020 10:29 AM PASTING MACHINE OPERATOR Encounter for screening for other viral diseases Chronic fatigue from Last 3 Months or Most Recently Relevant to Health Maintenance Results * SCAN - LABS (10/07/2024) Alee OSMAN Final Resu lt * Screening [...] Ag POC Presumptive Negative Presumptive Negative, Invalid [facility] EDW Nasal 09/25/2024 11:0 2 AM CDT Jessica Collins NP POINT OF CARE TEST ORDERABLES Final Result Performing Organization Address City/State/[facility] Co de Phone Number [facility] ED[facility] [address] [place] [address] * XR Knee Right 3 Views (09/13/2024 [...] John Sparrow M.D. RB T: Report ID: [id number] Reading Location: [id number] Procedure Note John Sparrow MD - 09/18/2024 [...] John Sparrow M.D. RB T: Report ID: [id number] Reading Location: [id number] Michael LUNSFORD XR PROCEDURES Final Re sult * (ABNORMAL) CT Abdomen Pelvis W Contrast (08/29/2024 12:23 PM PASTING MACHINE OPERATOR) Anatomical Region Laterality Modality Body N/A Computed Tomogra phy Historical Provider MD LUNSFORD CT PROCEDURES Edited Result - Final * CBC with auto differential (08/23/2024 2:11 PM PASTING MACHINE OPERATOR) WBC 4.8 3.8 - 10.8 Thousand/u L [...] [facility] Blood 08/23/2024 2:11 PM PASTING MACHINE OPERATOR 08/23/2024 2:11 PM PASTING MACHINE OPERATOR Sangita OSMAN LAB BLOOD ORDERABLES Vy suazo Result [facility] [address] [address] [address] * (ABNORMAL) Comprehensive metabolic panel (08/23/2024 2:11 PM PASTING MACHINE OPERATOR) Pathologist [facility] Glucose 188(H) 65 - [...] [facility] Blood 08/23/2024 2:11 PM PASTING MACHINE OPERATOR 08/23/2024 2:11 PM PASTING MACHINE OPERATOR us Sangita OSMAN LAB BLOOD ORDERABLES Vy l Result [facility] [address] [address] [place] [address] * SCAN - LABS (08/23/2024) us Alee OSMAN Final Resu lt * (ABNORMAL) CBC with auto differential (08/02/2024 7:41 AM PASTING MACHINE OPERATOR) [facility] WBC 4.0 3.8 - 10.8 Thousand/u L [...] [facility] Blood 08/02/2024 7:41 AM PASTING MACHINE OPERATOR 08/02/2024 7:42 AM PASTING MACHINE OPERATOR Aele OSMAN LAB BLOOD ORDERABLES Final Result [facility] [address] [place] [address] * TSH (08/02/2024 7:41 AM PASTING MACHINE OPERATOR) Pathologist [facility] TSH 1.57 0.40 - 4.50 mIU/L [facility] Blood 08/02/2024 7:41 AM PASTING MACHINE OPERATOR 08/02/2024 7:42 AM PASTING MACHINE OPERATOR Alee OSMAN LAB BLOOD ORDERABLES Final Result Performing Organization Address [facility] Co de Phone Number [facility] [address] [place] [address] * Hemoglobin A1c (08/02/2024 7:41 AM PASTING MACHINE OPERATOR) [facility] Hgb A1C 5.4 <5.7 % of total Hgb [facility] Comment: For the purpose of screening for the presence of diabetes: <5.7% Consistent with the absence of diabetes 5.7-6.4% Consistent with increased risk for diabetes (prediabetes) > or =6.5% Consistent with diabetes This assay result is consistent with a decreased risk of diabetes. Currently, no consensus exists regarding use of hemoglobin A1c for diagnosis of diabetes in children. According to [place] Diabetes Association (ADA) guidelines, hemoglobin A1c <7.0% represents optimal control in non- diabetic patients. Different metrics may apply to specific patient populations. Standards of Medical Care in Diabetes(ADA). Blood 08/02/2024 7:41 AM PASTING MACHINE OPERATOR 08/02/2024 7:42 AM PASTING MACHINE OPERATOR Alee OSMAN LAB BLOOD ORDERABLES Final Result Performing Organization Address City/[facility]/ZIP Co de Phone Number [facility] [address] [address] [place] [address] * Vitamin B12 (08/02/2024 7:41 AM PASTING MACHINE OPERATOR) Pathologist [facility] Vitamin B12 349 200 [...] will have symptoms. Blood 08/02/2024 7:41 AM PASTING MACHINE OPERATOR 08/02/2024 7:42 AM PASTING MACHINE OPERATOR Alee OSMAN LAB BLOOD ORDERABLES Final Result [facility] [address] [address] [place] [address] * Lipid panel (08/02/2024 7:41 AM PASTING MACHINE OPERATOR) Pathologist [facility] Cholesterol 127 <200 mg/dL [...] factors. LDL-C is now calculated using the Barry-Charly calculation, which is a validated novel method providing better accuracy than the Friedewald equation in the estimation of LDL-C. Barry SS et al. ELAINE. 2013;310(19): 5780-9464 (http://education.PasswordBox.Avenso/faq/AHD888) Chol/HDL ratio 1.7 <5.0 (calc) [facility] Non-HDL, (LDL+VLDL) 52 <130 mg/dL (calc) [facility] Comment: For patients with diabetes plus 1 major ASCVD risk factor, treating to a non-HDL-C goal of <100 mg/dL (LDL-C of <70 mg/dL) is considered a therapeutic option. Blood 08/02/2024 7:41 AM PASTING MACHINE OPERATOR 08/02/2024 7:42 AM PASTING MACHINE OPERATOR Alee OSMAN LAB BLOOD ORDERABLES Final Result [facility] [address] [address] [address] * Comprehensive metabolic panel (08/02/2024 7:41 AM PASTING MACHINE OPERATOR) Glucose 99 65 - 99 mg/dL [facility] [...] [facility] Blood 08/02/2024 7:41 AM PASTING MACHINE OPERATOR 08/02/2024 7:42 AM PASTING MACHINE OPERATOR us Alee OSMAN LAB BLOOD ORDERABLES Final Result [facility] [address] [address] [address] * CBC with auto differential (07/30/2024 2:36 PM PASTING MACHINE OPERATOR) WBC 6.4 3.8 - 10.8 Thousand/u L [...] [facility] Blood 07/30/2024 2:36 PM PASTING MACHINE OPERATOR 07/30/2024 2:36 PM PASTING MACHINE OPERATOR Sangita Magali OSMAN LAB BLOOD ORDERABLES Vy l Result Performing Organization Address [facility] de Phone Number [facility] [address] [place] [address] * Erythrocyte sedimentation rate (07/30/2024 2:36 PM PASTING MACHINE OPERATOR) Erythrocyte sedimentation rate 11 < OR = 30 mm/h [facility] Blood 07/30/2024 2:36 PM PASTING MACHINE OPERATOR 07/30/2024 2:36 PM PASTING MACHINE OPERATOR Sangita Magali OSMAN LAB BLOOD ORDERABLES Vy l Result Performing Organization Address [facility] Phone Number [facility] [address] [place] [address] * CRP (acute phase) (07/30/2024 2:36 PM PASTING MACHINE OPERATOR) C-RP <3.0 <8.0 mg/L [facility] Blood 07/30/2024 2:36 PM PASTING MACHINE OPERATOR 07/30/2024 2:36 PM PASTING MACHINE OPERATOR Result [facility] Sangita Magali OSMAN LAB BLOOD ORDERABLES Vy l Result Performing Organization Address [facility] Phone Number [facility] [address] [place] [address] * (ABNORMAL) Comprehensive metabolic panel (07/30/2024 2:36 PM PASTING MACHINE OPERATOR) Glucose 115(H) 65 - 99 mg/dL [facility] [...] [facility] Blood 07/30/2024 2:36 PM PASTING MACHINE OPERATOR 07/30/2024 2:36 PM PASTING MACHINE OPERATOR Sangita OSMAN LAB BLOOD ORDERABLES Vy l Result [facility] [address] [place] [address] * XR Knee Right 3 Views (07/24/2024 1:35 PM PASTING MACHINE OPERATOR) Anatomical Region Laterality Modality Lower Extremities, Knee Right Computed Radiography 07/25/2024 7:16 AM PASTING MACHINE OPERATOR Narrative 07/25/2024 7:18 AM PASTING MACHINE OPERATOR EXAM DESCRIPTION: XR KNEE RIGHT 3 VIEWS [...] signed by Elton CABA T: Report ID: [id number] Reading Location: [id number] Procedure Note Elton Jonas MD - 07/25/2024 [...] Elton Jonas M.D. KR T: Report ID: [id number] Reading Location: [place] [address] Michael Motta MD IMG XR PROCEDURES Final [...] * Hepatitis C antibody (06/04/2020 10:29 AM PASTING MACHINE OPERATOR) Hep C Ab NON-REACTI VE NON-REACT ALEXYS [facility] SIGNAL TO CUT-OFF 0.02 <1.00 [facility] Comment: HCV antibody was non-reactive. There is no laboratory evidence of HCV infection. In most cases, no further action is required. However, if recent HCV exposure is suspected, a test for HCV RNA (test code 40653) is suggested. For additional information please refer to http://education.Ploonge/faq/KVS08l7 (This link is being provided for informational/ educational purposes only.) Blood specimen (specimen) 06/04/2020 10:29 AM PASTING MACHINE OPERATOR 06/04/2020 10:30 AM PASTING MACHINE OPERATOR Sangita OSMAN LAB MICROBIOLOGY - GENERA L ORDERABLES Final Result [facility] [address] [place] [address] from Last 3 Months or Most Recently Relevant to Health Maintenance Insurance [facility] MEDICARE ADVANTAGE Advance Directives For more information, please contact: [phone] Documents on File Type Date Recorded Patient Hydraulic Tester Expl anation ADVANCE DIRECTIVE 05/17/2024 2:13 PM Yonis r of 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 Assembly Worker-Medical * Full Code (Latest Code Status on File) Date Activated Date Inactivated Comments 05/30/2024 12:38 PM 06/05/2024 6:31 PM * Full Code Date Activated Date Inactivated Comments 05/04/2023 2:33 PM 05/07/2023 3:07 AM * Full Code Date Activated Date Inactivated Comments 03/22/2021 4:39 PM 03/25/2021 6:17 PM Care Teams Health Psychologist Relationship Specialty Start Date End Date Alee Elizondo PA [address] [place] [address] PCP - General Internal Medicine 07/05/23 Sharan Linton MD Referring Physician Gastroenterology 10/31/18 Martha Starks MD Consulting Physician Cardiology 12/24/20 Shama Hines MD [address] [facility] [address] Consulting Physician Pain Management 01/19/21 Artis Grewal MD [address] [place], [place] [address] Consulting Physician Rheumatology 01/30/21 Amy Mayes NP [address] [address] Nurse Practitioner Cardiovascular Disease 04/20/24 Shailesh Dunn MD [address] [facility] [address] [address] Consulting Physician Pulmonary Disease 04/20/24 Sangita Farrar PA [address] [place], [place] [address] Physician Restrictive Preparation Operator Rheumatology 05/15/24
--- OUTSIDE RECORDS SUMMARY | 2024-10-13 15:24 | XMS_ITS | Clinical Summary ---
Author Organization [facility] Address [address] [place] [address] Care Team Providers Care Rubber Curer Name Role Phone Unavailable Primary Care Provider [...]
--- OUTSIDE RECORDS SUMMARY | 2024-10-13 15:24 | XMS_ITS | Encounter Summary ---
Author Organization [facility] Address [address] [place] [address] Care Team Providers Care Professor Of Art Name Role Phone Sharan Linton MD Unavailable [phone] Martha Starks MD Unavailable [phone] Shama Hines MD Unavailable Artis Grewal MD Unavailable [phone] Alee Elizondo Primary Care Provider [phone] Amy Mayes NP Unavailable [phone] Shailesh Dunn MD Unavailable [phone] Sangita Farrar Unavailable [phone] Encounter Details Date Type Department Care Team (Late st Contact Info) Description 10/07/2024 Orders Only [facility] Health Information Management [address] [place] [address] Alee Elizondo PA [address] [place], [place] [id number] Social History Tobacco Use Types Packs/Day Years Used Date Smoking Tobacco: Never Smokeless Tobacco: Never Comments:Never used Alcohol Use Standard Drinks/Week Comments No 0 (1 standard drink = 0.6 oz pur e alcohol) [facility] Utilities Answer Date Recorded In the past 12 months has [employer] electric, gas, oil, or water company threatened [...] often do you attend chur ch or spiritism services? 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 Gender Identity Female 02/15/2020 6:08 PM [...] on filedocumented in this encounter Care Teams Professor Of Art Relationship Specialty Start Date End Date Alee Elizondo PA [address] [facility] [address] [place] [address] PCP - General Internal Medicine 07/05/23 Sharan Linton MD Referring Physician Gastroenterology 10/31/18 Martha Starks MD Consulting Physician Cardiology 12/24/20 Shama Hines MD [address] [facility] [address] [place] [address] Consulting Physician Pain Management 01/19/21 Artis Grewal MD [address] [place] [address] Consulting Physician Rheumatology 01/30/21 Amy Mayes NP [address] [facility] [address] [place] [address] Nurse Practitioner Cardiovascular Disease 04/20/24 Shailesh Dunn MD [address] [facility] [address] [place] [address] Consulting Physician Pulmonary Disease 04/20/24 Sangita Farrar PA [address] [facility] [place] [address] Physician Measurement Psychologist Rheumatology 05/15/24 documented as of this encounter
--- OUTSIDE RECORDS SUMMARY | 2024-10-13 15:24 | XMS_ITS | Encounter Summary ---
Author Organization [facility] Healthcare Address [address] [place] [address] Care Team Providers Care Ophthalmology Surgical Technician Name Role Phone Sharan Linton MD Unavailable [phone] Martha Starks MD Unavailable [phone] Shama Hines MD Unavailable Artis Grewal MD Unavailable [phone] Alee Elizondo Primary Care Provider [phone] Amy Mayes NP Unavailable [phone] Shailesh Dunn MD Unavailable [phone] Sangita Farrar Unavailable [phone] Encounter Details Date Type Department Care Team (Late st Contact Info) Description 10/11/2023 Orders Only [facility] [place] [place] Health Information Management [address] [place] [address] Scanning, Provider Social History Tobacco Use Types Packs/Day Years Used Date Smoking Tobacco: Never Smokeless Tobacco: Never Comments:Never used Alcohol Use Standard Drinks/Week Comments No 0 (1 standard drink = 0.6 oz pur e alcohol) 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 [address] [place] [address] PCP - General Internal Medicine 07/05/23 Sharan Linton MD Referring Physician Gastroenterology 10/31/18 Martha Starks MD Consulting Physician Cardiology 12/24/20 Shama Hines MD [address] [place] [address] [facility] [address] [place] [address] Consulting Physician Pain Management 01/19/21 Artis Grewal MD [address] [place] [address] Consulting Physician Rheumatology 01/30/21 Amy Mayes NP [address] [address] Nurse Practitioner Cardiovascular Disease 04/20/24 Shailesh Dunn MD [address] [facility] [address] [address] Consulting Physician Pulmonary Disease 04/20/24 Sangita Farrar PA [address] [place] [address] Physician Stove Bottom Worker Rheumatology 05/15/24 documented as of this encounter
--- OUTSIDE RECORDS SUMMARY | 2024-10-13 15:24 | XMS_ITS | Clinical Summary ---
Author Organization [facility] Address [address] [facility] [place] [address] Care Team Providers Care Loss Control Technician Name Role Phone Darvin Harden MD Primary Care Provider [phone] Source Comments [facility],non-owned Affiliates and Associated Physician Practices is amultiple site organization consisting of ambulatory clinics and hospital sitesin [place], [place], [place] and [place]. This disclosure is being madepursuant to the Care Everywhere program and may not contain all information available regarding this patient. 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 Gender Identity Not on file Sexual Orientation [...] age to complete this topic Insurance MEDICARE [facility] MEDICARE SELF PAY NO INSURANCE Member Subscriber Plan / Payer (Ef fective for All Dates) Name:Nohemy Lock Member ID:Not on file Relation to Subscriber:Not on file Name:NOHEMY LOCK Subscriber ID:Not on file Address: [address] [address] Payer ID:Not on file Group ID:Not on file Type:Self Pay Address: [place], [place] [facility] MEDICARE SELF PAY NO INSURANCE Member Subscriber Plan / Payer (Ef fective for All Dates) Name:Nohemy Lock Member ID:Not on file Relation to Subscriber:Not on file Name:NOHEMY LOCK Subscriber ID:Not on file Address: [address] [place] [address] Payer ID:Not on file Group ID:Not on file Type:Self Pay Address: [place], [place] [facility] MEDICARE SELF PAY NO INSURANCE Member Subscriber Plan / Payer (Ef fective for All Dates) Name:Nohemy Lock Member ID:Not on file Relation to Subscriber:Not on file Name:NOHEMY LOCK Subscriber ID:Not on file Address: [place] [address] Payer ID:Not on file Group ID:Not on file Type:Self Pay Address: [place], [place] Care Teams Loss Control Technician Relationship Specialty Start Date End Date Darvin Harden MD [address] [facility] [address] [place] [address] PCP - General 07/11/19
--- OUTSIDE RECORDS SUMMARY | 2024-10-13 15:24 | XMS_ITS | Continuity of Care Document ---
Author Organization [facility] Address [address] [place] [address] [place] [address] Phone Care Team Providers Care Tractor Driver Name Role Phone Oswald No DO Unavailable Unavailable Advance Directives Directive Yes / No Effective Date File Name No Information Encounters Encounter Description Practice Location Reason(s) For Visit Diagnoses Date Provider Providers Copied on Encounter [facility], [address] [place] [address] [address], [place], [place], [id number], [place] tel:[phone] [facility] No Information Oneal Combs. [address] [facility], [place], [address], [place]. tel: [phone] Family History Family Member Type Diagnosis Age [...]
--- OUTSIDE RECORDS SUMMARY | 2024-10-13 15:24 | XMS_ITS | Encounter Summary ---
Author Organization [facility] Facility Care Team Providers Care Distance Learning Administrator Name Role Phone Alee Elizondo Primary Care Provider + [phone] Sharan Linton MD Unavailable +[phone] Taisha Gomez MD Unavailable +[phone] Parag Soto MD Unavailable [phone] RaziaMartha singh MD Unavailable +[phone] Puneet Uribe MD Unavailable +[phone] Shama Hines MD Unavailable Artis Grewal MD Unavailable [phone] Harrison Pena RN Unavailable +[phone] Nafisa Gregg RN Unavailable [phone] Tho Kelsey MD Primary Care Provider [phone] Alee Elizondo Primary Care Provider + [phone] Amy Mayes NP Unavailable +[phone] Shailesh Dunn MD Unavailable +[phone] Sangita Farrar Unavailable +[phone] Encounter Details Date Type Department Care Team (Latest Contact Info) Description 03/24/2016 Orders Only [facility] CLINCONV Provider, MD Tania [address] [place] [address] Social History Tobacco Use Types Packs/Day Years Used Date Smoking Tobacco: Never Alcohol Use Standard Drinks/Week Comments No 0 (1 standard drink = 0.6 oz pur e alcohol) Comments Unknown Sex and Gender Information Value Date Recorded Sex Assigned at Not on file Legal Sex Female 8:04 PM SET UP WORKER Gender Identity Female 02/15/2020 6:08 PM [...] COVID: Suspected 08/13/2021 08/14/2021 08/14/2021 3:06 AM SET UP WORKER COVID: Suspected 08/14/2021 08/14/2021 08/15/2021 3:05 AM SET UP WORKER COVID: Suspected 08/14/2021 08/14/2021 08/15/2021 6:25 AM SET UP WORKER COVID: Suspected 06/02/2023 06/02/2023 06/02/2023 7:25 PM SET UP WORKER COVID: Suspected 07/26/2023 07/26/2023 07/26/2023 3:10 PM SET UP WORKER COVID: Suspected 09/25/2024 09/25/2024 09/25/2024 11:03 AM CDT Influenza, adult 09/25/2024 09/25/2024 10/02/2024 3:05 AM CDT documented as of this encounter Care Teams Distance Learning Administrator Relationship Specialty Start Date End Date Alee Elizondo PA [address] [facility] 500 [place] [address] PCP - General Internal Medicine 02/01/17 06/29/23 Tho Kelsey MD [address] [place] [address] DR [facility] [address] [place] [address] PCP - General Family Medicine 06/30/23 07/04/23 Alee Elizondo PA [address] [place] [address] [place] [address] PCP - General Internal Medicine 07/05/23 Sharan Linton MD [address] [place] [address] [place] [address] Referring Physician Gastroenterology 10/31/18 Taisha Gomez MD [address] [place] [address] [place] [address] Referring Physician Pulmonary Disease 10/31/18 12/23/20 Parag Soto MD [address] [place] [address] [place] [address] Referring Physician Rheumatology 10/31/18 12/23/20 Martha Starks MD [address] [place] [address] [place] [address] Consulting Physician Cardiology 12/24/20 Puneet Uribe MD [address] [facility] [address] [place] [address] Consulting Physician Rheumatology 12/24/20 01/29/21 Shama Hines MD [address] [facility], [facility] [address] [place] [address] Consulting Physician Pain Management 01/19/21 Artis Grewal MD [address] [place] [address] Consulting Physician Rheumatology 01/30/21 Harrison Pena, JULIUS [address] [place] [address] Brake Assembler 05/30/23 09/04/23 Nafisa Gregg, JULIUS [address] [place] [address] [place] [address] [place] [address] Brake Assembler 06/06/23 06/12/23 Amy Mayes NP [address] [address] Nurse Practitioner Cardiovascular Disease 04/20/24 Shailesh Dunn MD [address] [facility] [address] [place] [address] Consulting Physician Pulmonary Disease 04/20/24 Sangita Farrar PA [address] [place] [address] Physician Laundry 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 Rheumatology 05/15/24 documented as of this encounter
--- OUTSIDE RECORDS SUMMARY | 2024-10-13 15:24 | XMS_ITS | Encounter Summary ---
Author Organization [facility] Healthcare Address [address] [place] [address] Care Team Providers Care Golf Club Weighter Name Role Phone Sharan Linton MD Unavailable [phone] Martha Starks MD Unavailable +[phone] Shama Hines MD Unavailable Artis Grewal MD Unavailable [phone] Alee Elizondo Primary Care Provider [phone] Amy Mayes NP Unavailable +[phone] Shailesh Dunn MD Unavailable [phone] Sangita Farrar Unavailable [phone] Reason for Visit * Reason Onset Date Comments Medication Request 10/10/2024 Encounter Details Date Type Department Care Team (Late st Contact Info) Description 10/10/2024 Telephone [facility] Medical Group Family Medicine [address] [place] [address] Alee Elizondo PA [address] [facility] [address] [place] [address] [place] [address] Medication Request Social History Tobacco Use Types Packs/Day Years Used Date Smoking Tobacco: Never Smokeless Tobacco: Never Comments:Never used Alcohol Use Standard Drinks/Week Comments No 0 (1 standard drink = 0.6 oz pur e alcohol) [place] Utilities Answer Date Recorded In the past 12 months has th e electric, gas, oil, or water [employer] threatened to shut off services in [...] any time in the past 12 m [facility], were you homeless or living [...] on file Legal Sex Female 8:04 PM ADMINISTRATIVE OFFICER Gender Identity Female 02/15/2020 6:08 PM CDT [...] encounter Miscellaneous Notes * Telephone Encounter - Butler, Yovana, HOME APPLIANCE INSTALLER - 10/10/2024 9:37 AM CDT Called and [...] on filedocumented in this encounter Care Teams Golf Club Weighter Relationship Specialty Start Date End Date Alee Elizondo PA [address] [facility] 500 [place] [address] PCP - General Internal Medicine 07/05/23 Sharan Linton MD Referring Physician Gastroenterology 10/31/18 Martha Starks MD Consulting Physician Cardiology 12/24/20 Shama Hines MD [address] [facility], [facility] [address] [place] [address] Consulting Physician Pain Management 01/19/21 Artis Grewal MD [address] [place] [address] Consulting Physician Rheumatology 01/30/21 Amy Mayes NP [address] [address] Nurse Practitioner Cardiovascular Disease 04/20/24 Shailesh Dunn MD [address] [address] Consulting Physician Pulmonary Disease 04/20/24 Sangita Farrar PA [address] [place] [address] Physician Consumer Banker Rheumatology 05/15/24 documented as of this encounter
--- OUTSIDE RECORDS SUMMARY | 2024-10-13 15:24 | XMS_ITS | Encounter Summary ---
Author Organization [facility] Facility Care Team Providers Care French Comber Name Role Phone Alee Elizondo Primary Care Provider + [phone] Sharan Linton MD Unavailable [phone] Taisha Gomez MD Unavailable [phone] Parag Soto MD Unavailable [phone] RaziaMartha singh MD Unavailable [phone] Puneet Uribe MD Unavailable [phone] Shama Hines MD Unavailable Artis Grewal MD Unavailable [phone] Harrison Pena RN Unavailable [phone] Nafisa Gregg RN Unavailable [phone] Tho Kelsey MD Primary Care Provider [phone] Alee Elizondo Primary Care Provider + [phone] Amy Mayes NP Unavailable +[phone] Shailesh Dunn MD Unavailable +[phone] Sangita Farrar Unavailable [phone] Encounter Details Date Type Department Care Team (Latest Contact Info) Description 11/04/2015 Orders Only [facility] CLINCONV Provider, MD Tania [address] [place] [address] Social History Tobacco Use Types Packs/Day Years Used Date Smoking Tobacco: Never Assessed Comments Unknown Sex and Gender Information Value Date Recorded Sex Assigned at Not on file Legal Sex Female 8:04 PM QUOTE CLERK Gender Identity Female 02/15/2020 6:08 PM [...] COVID: Suspected 08/13/2021 08/14/2021 08/14/2021 3:06 AM QUOTE CLERK COVID: Suspected 08/14/2021 08/14/2021 08/15/2021 3:05 AM QUOTE CLERK COVID: Suspected 08/14/2021 08/14/2021 08/15/2021 6:25 AM QUOTE CLERK COVID: Suspected 06/02/2023 06/02/2023 06/02/2023 7:25 PM QUOTE CLERK COVID: Suspected 07/26/2023 07/26/2023 07/26/2023 3:10 PM QUOTE CLERK COVID: Suspected 09/25/2024 09/25/2024 09/25/2024 11:03 AM CDT Influenza, adult 09/25/2024 09/25/2024 10/02/2024 3:05 AM CDT documented as of this encounter Care Teams French Comber Relationship Specialty Start Date End Date Alee Elizondo PA [address] [facility] [address] [place] [address] PCP - General Internal Medicine 02/01/17 06/29/23 Tho Kelsey MD [address] [place] [address] DR [facility] [address] [place] [address] PCP - General Family Medicine 06/30/23 07/04/23 Alee Elizondo PA [address] [place] [address] [place] [address] PCP - General Internal Medicine 07/05/23 Sharan Linton MD [address] [place] [address] [place] [address] Referring Physician Gastroenterology 10/31/18 Taisha Gomez MD [address] [place] [address] [place] [address] Referring Physician Pulmonary Disease 10/31/18 12/23/20 Parag Soto MD [address] [place] [address] [place] [address] Referring Physician Rheumatology 10/31/18 12/23/20 Martha Starks MD [address] [place] [address] [place] [address] Consulting Physician Cardiology 12/24/20 Puneet Uribe MD [address] [facility] [address] [place] [address] Consulting Physician Rheumatology 12/24/20 01/29/21 Shama Hines MD 4700 [facility], [facility] [address] [place] [address] Consulting Physician Pain Management 01/19/21 Artis Grewal MD [address] [place] [address] Consulting Physician Rheumatology 01/30/21 Harrison Pena, JULIUS [address] [place] [address] Supervisor Aircraft Cleaning 05/30/23 09/04/23 Nafisa Gregg RN [address] [place] [address] [address] [place] [address] Supervisor Aircraft Cleaning 06/06/23 06/12/23 Amy Mayes NP [address] [address] Nurse Practitioner Cardiovascular Disease 04/20/24 Shailesh Dunn MD [address] [address] Consulting Physician Pulmonary Disease 04/20/24 Sangita Farrar PA [address] [place] [address] Physician Pit Supervisor Rheumatology 05/15/24 documented as of this encounter
--- OUTSIDE RECORDS SUMMARY | 2024-10-13 15:24 | XMS_ITS | Encounter Summary ---
Author Organization [facility] Facility Care Team Providers Care Business Manager Name Role Phone Alee Elizondo Primary Care Provider + [phone] Sharan Linton MD Unavailable [phone] Taisha Gomez MD Unavailable [phone] Parag Soto MD Unavailable [phone] RaziaMartha singh MD Unavailable [phone] Puneet Uribe MD Unavailable [phone] Shama Hines MD Unavailable Artis Grewal MD Unavailable [phone] Harrison Pena RN Unavailable +[phone] Nafisa Gregg RN Unavailable [phone] Tho Kelsey MD Primary Care Provider [phone] Alee Elizondo Primary Care Provider + [phone] Amy Mayes NP Unavailable +[phone] Shailesh Dunn MD Unavailable +[phone] Sangita Farrar Unavailable +[phone] Encounter Details Date Type Department Care Team (Latest Contact Info) Description 12/31/2015 Orders Only [facility] CLINCONV Provider, MD Tania [address] [place] [address] Social History Tobacco Use Types Packs/Day Years Used Date Smoking Tobacco: Never Alcohol Use Standard Drinks/Week Comments No 0 (1 standard drink = 0.6 oz pur e alcohol) Comments Unknown Sex and Gender Information Value Date Recorded Sex Assigned at Not on file Legal Sex Female 8:04 PM AUTO HAULER Gender Identity Female 02/15/2020 6:08 PM CDT [...] COVID: Suspected 08/13/2021 08/14/2021 08/14/2021 3:06 AM AUTO HAULER COVID: Suspected 08/14/2021 08/14/2021 08/15/2021 3:05 AM AUTO HAULER COVID: Suspected 08/14/2021 08/14/2021 08/15/2021 6:25 AM AUTO HAULER COVID: Suspected 06/02/2023 06/02/2023 06/02/2023 7:25 PM AUTO HAULER COVID: Suspected 07/26/2023 07/26/2023 07/26/2023 3:10 PM AUTO HAULER COVID: Suspected 09/25/2024 09/25/2024 09/25/2024 11:03 AM CDT Influenza, adult 09/25/2024 09/25/2024 10/02/2024 3:05 AM CDT documented as of this encounter Care Teams Business Manager Relationship Specialty Start Date End Date Alee Elizondo PA 10[address] [facility] 500 [place] [address] PCP - General Internal Medicine 02/01/17 06/29/23 Tho Kelsey MD [address] [place] [address] [facility] [address] [place] [address] PCP - General Family Medicine 06/30/23 07/04/23 Alee Elizondo PA [address] [place] [address] [place] [address] PCP - General Internal Medicine 07/05/23 Sharan Linton MD [address] [facility] 500 [place], [place] [address] Referring Physician Gastroenterology 10/31/18 Taisha Gomez MD [address] [facility] 500 [place], [place] [address] Referring Physician Pulmonary Disease 10/31/18 12/23/20 Parag Soto MD [address] [facility] [address] [place] [address] Referring Physician Rheumatology 10/31/18 12/23/20 Martha Starks MD [address] [place] [address] [place], [place] [address] Consulting Physician Cardiology 12/24/20 Puneet Uribe MD [address] [facility] [address] [place] [address] Consulting Physician Rheumatology 12/24/20 01/29/21 Shama Hines MD 47[address] [facility], [facility] [address] [place] [address] Consulting Physician Pain Management 01/19/21 Artis Grewal MD [address] [place] [address] Consulting Physician Rheumatology 01/30/21 Harrison Pena, JULIUS [address] [place] [address] Ornament Setter 05/30/23 09/04/23 Nafisa Gregg, JULIUS [address] [place] [address] [facility] [address] [place] [address] Ornament Setter 06/06/23 06/12/23 Amy Mayes NP [address] [address] Nurse Practitioner Cardiovascular Disease 04/20/24 Shailesh Dunn MD [address] [address] Consulting Physician Pulmonary Disease 04/20/24 Sangita Farrar PA [address] [place] [address] Physician Technology Program Manager Rheumatology 05/15/24 documented as of this encounter
--- OUTSIDE RECORDS SUMMARY | 2024-10-13 15:24 | XMS_ITS | Encounter Summary ---
Author Organization [facility] Healthcare Address [address] [place] [address] Care Team Providers Care Director Of Assisted Living Name Role Phone Sharan Linton MD Unavailable [phone] Martha Starks MD Unavailable [phone] Shama Hines MD Unavailable Artis Grewal MD Unavailable [phone] Alee Elizondo Primary Care Provider [phone] Amy Mayes NP Unavailable [phone] Shailesh Dunn MD Unavailable [phone] Sangita Farrar Unavailable [phone] Encounter Details Date Type Department Care Team (Late st Contact Info) Description 10/03/2023 Orders Only [facility] Health Information Management [address] [place] [address] Scanning, Provider Social History Tobacco Use Types Packs/Day Years Used Date Smoking Tobacco: Never Smokeless Tobacco: Never Comments:Never used Alcohol Use Standard Drinks/Week Comments No 0 (1 standard drink = 0.6 oz pur e alcohol) [facility] Utilities Answer Date Recorded In the [...] you attend chur ch or spiritism services? 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 PM NURSING OFFICER Gender Identity Female 02/15/2020 6:08 PM [...] as of this encounter Care Teams Director Of Assisted Living Relationship Specialty Start Date End Date Alee Elizondo PA [address] [facility] [place] [address] [place] [address] PCP - General Internal Medicine 07/05/23 Sharan Linton MD Referring Physician Gastroenterology 10/31/18 Martha Starks MD Consulting Physician Cardiology 12/24/20 Shama Hines MD 4700 [facility], [address] [address] Consulting Physician Pain Management 01/19/21 Artis Grewal MD [address] [place] [address] Consulting Physician Rheumatology 01/30/21 Amy Mayes NP [address] [address] Nurse Practitioner Cardiovascular Disease 04/20/24 Shailesh Dunn MD 4600 [facility] [address] [address] Consulting Physician Pulmonary Disease 04/20/24 Sangita Farrar PA [address] [place] [address] Physician Chip Mixing 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 Rheumatology 05/15/24 documented as of this encounter
--- OUTSIDE RECORDS SUMMARY | 2024-10-13 15:24 | XMS_ITS | Encounter Summary ---
Author Organization [facility] Healthcare Address [address] [place] [address] Care Team Providers Care Night Court Magistrate Name Role Phone Sharan Linton MD Unavailable [phone] Martha Starks MD Unavailable [phone] Shama Hines MD Unavailable Artis Grewal MD Unavailable [phone] Alee Elizondo Primary Care Provider [phone] Amy Mayes NP Unavailable [phone] Shailesh Dunn MD Unavailable [phone] Sangita Farrar Unavailable [phone] Encounter Details Date Type Department Care Team (Late st Contact Info) Description 10/12/2024 Results Follow-Up [facility] Medical Group Family Medicine [address] [place] [address] Alee Elizondo PA [address] [facility] [address] [place] [address] [place] [address] Social History Tobacco Use Types Packs/Day Years Used Date Smoking Tobacco: Never Smokeless Tobacco: Never Comments:Never used Alcohol Use Standard Drinks/Week Comments No 0 (1 standard drink = 0.6 oz pur e alcohol) [facility] Utilities Answer Date Recorded In the past 12 months has [employer], oil, or water [employer] threatened to shut off services in your [...] often do you attend chur ch or caodaism services? 1 to 4 times per year 05/30/2024 Do you belong to any clubs o r organizations such as advent groups, unions, fraternal or athletic groups, or [...] time in the past 12 m [facility], were you homeless or living in a alf (including now)? No 05/30/2024 Personal Safety Answer Date Recorded Have you ever been in or are you currently in a harmful physical or emotional relationship or is someone making you feel afraid or unsafe? Denies 05/30/2024 Comments No Sex and Gender Information Value Date Recorded Sex Assigned at Not on file Legal Sex Female 8:04 PM BOTTLE BOOTH ATTENDANT Gender Identity Female 02/15/2020 6:08 PM CDT Sexual Orientation Not on file documented as of this encounter Plan of Treatment Not on file documented as of this encounter Visit Diagnoses Not on filedocumented in this encounter Care Teams Night Court Magistrate Relationship Specialty Start Date End Date Alee Elizondo PA 10[address] [facility] 500 [place] [address] PCP - General Internal Medicine 07/05/23 Sharan Linton MD Referring Physician Gastroenterology 10/31/18 Martha Starks MD Consulting Physician Cardiology 12/24/20 Shama Hines MD 4700 [facility], [facility] [address] [place] [address] Consulting Physician Pain Management 01/19/21 Artis Grewal MD [address] [place] [address] Consulting Physician Rheumatology 01/30/21 Amy Mayes NP [address] [address] Nurse Practitioner Cardiovascular Disease 04/20/24 Shailesh Dunn MD [address] [facility] [address] [address] Consulting Physician Pulmonary Disease 04/20/24 Sangita Farrar PA [address] [place] [address] Physician Twisting Frame Fixer Rheumatology 05/15/24 documented as of this encounter
--- OUTSIDE RECORDS SUMMARY | 2024-10-13 15:24 | XMS_ITS | Encounter Summary ---
Author Organization [facility] Healthcare Address [address] [place] [address] Care Team Providers Care Aquatics Instructor Name Role Phone Sharan Linton MD Unavailable [phone] Martha Starks MD Unavailable [phone] Shama Hines MD Unavailable Artis Grewal MD Unavailable [phone] Alee Elizondo Primary Care Provider +[phone] Amy Mayes NP Unavailable +[phone] Shailesh Dunn MD Unavailable [phone] Sangita Farrar Unavailable [phone] Encounter Details Date Type Department Care Team (Late st Contact Info) Description 09/04/2024 Results Follow-Up [facility] Medical [facility] Family Medicine [address] [place] [address] Alee Elizondo PA [address] [place] [address] Social History Tobacco Use Types Packs/Day Years Used Date Smoking Tobacco: Never Smokeless Tobacco: Never Comments:Never used Alcohol Use Standard Drinks/Week Comments No 0 (1 standard drink = 0.6 oz pur e alcohol) [facility] Utilities Answer Date Recorded In the past 12 months has [employer], oil, or water [employer] threatened to shut off services in your [...] often do you attend chur ch or adventist services? 1 to 4 times per year [...] in the past 12 m [facility], were you homeless or living [...] on file Legal Sex Female 8:04 PM ORDNANCE EQUIPMENT WORKER Gender Identity Female 02/15/2020 6:08 PM [...] documented as of this encounter Care Teams Aquatics Instructor Relationship Specialty [place] [address] [place] [address] PCP - General Internal Medicine 07/05/23 Sharan Linton MD Referring Physician Gastroenterology 10/31/18 Martha Starks MD Consulting Physician Cardiology 12/24/20 Shama Hines MD [address] [facility], [address] [address] Consulting Physician Pain Management 01/19/21 Artis Grewal MD [address] [place] [address] Consulting Physician Rheumatology 01/30/21 Amy Mayes NP [address] [address] Nurse Practitioner Cardiovascular Disease 04/20/24 Shailesh Dunn MD [address] [address] Consulting Physician Pulmonary Disease 04/20/24 Sangita Farrar PA [address] [place] [address] Physician Plasma Center Technician Rheumatology 05/15/24 documented as of this encounter
--- OUTSIDE RECORDS SUMMARY | 2024-10-13 15:24 | XMS_ITS | Encounter Summary ---
Author Organization [facility] Address [address] [place] [address] Phone Care Team Providers Care Lehr Operator Name Role Phone Sharan Linton MD Unavailable [phone] Martha Starks MD Unavailable [phone] Shama Hines MD Unavailable Artis Grewal MD Unavailable [phone] Alee Elizondo Primary Care Provider [phone] Amy Mayes NP Unavailable [phone] Shailesh Dunn MD Unavailable [phone] Sangita Farrar Unavailable [phone] Encounter Details Date Type Department Care Team (Late st Contact Info) Description 08/24/2024 Results Follow-Up [facility] [address] [place] [address] Sangita Farrar PA [address] [place] [address] Social History Tobacco Use Types [...] any time in the past 12 m [facility], were you homeless or living in a skilled nursing (including now)? No 05/30/2024 Personal Safety Answer Date Recorded Have you ever been in or are you currently in a harmful physical or emotional relationship or is someone making you feel afraid or unsafe? Denies 05/30/2024 Comments No Sex and Gender Information Value Date Recorded Sex Assigned at Not on file Legal Sex Female 8:04 PM PROPAGATOR LABORER Gender Identity Female 02/15/2020 6:08 PM CDT [...] documented as of this encounter Care Teams Lehr Operator Relationship Specialty Start Date End Date Alee Elizondo PA [address] [facility] [address] [place] [address] PCP - General Internal Medicine 07/05/23 Sharan Linton MD Referring Physician Gastroenterology 10/31/18 Martha Starks MD Consulting Physician Cardiology 12/24/20 Shama Hines MD [address] [facility] [address] Consulting Physician Pain Management 01/19/21 Artis Grewal MD [address] [place] [address] Consulting Physician Rheumatology 01/30/21 Amy Mayes NP [address] [address] Nurse Practitioner Cardiovascular Disease 04/20/24 Shailesh Dunn MD 46[address] [facility] [address] [address] Consulting Physician Pulmonary Disease 04/20/24 Sangita Farrar PA [address] [place] [address] Physician Supervisor [employer] Rheumatology 05/15/24 documented as of this encounter
--- OUTSIDE RECORDS SUMMARY | 2024-10-13 15:24 | XMS_ITS | Encounter Summary ---
Author Organization [facility] Healthcare Address [address] [place] [address] Care Team Providers Care Retail Merchandiser Name Role Phone Sharan Linton MD Unavailable [phone] Martha Starks MD Unavailable [phone] Shama Hines MD Unavailable Artis Grewal MD Unavailable [phone] Alee Elizondo Primary Care Provider [phone] Amy Mayes NP Unavailable +[phone] Shailesh Dunn MD Unavailable [phone] Sangita Farrar Unavailable [phone] Reason for Visit * Reason Onset Date Comments Medical Question/Miscellaneous 09/25/2024 Encounter Details Date Type Department Care Team (Late st Contact Info) Description 09/25/2024 Results Follow-Up [facility] Family Medicine [address] [place] [address] Alee Elizondo PA [address] [place] [address] Social History Tobacco Use Types Packs/Day Years Used Date Smoking Tobacco: Never Smokeless Tobacco: Never Comments:Never used Alcohol Use Standard Drinks/Week Comments No 0 (1 standard drink = 0.6 oz pur e alcohol) [facility] Utilities Answer Date Recorded In [...] on file Legal Sex Female 8:04 PM RETAIL SEASONAL SPECIALIST Gender Identity Female 02/15/2020 6:08 PM [...] as of this encounter Care Teams Retail Merchandiser Relationship Specialty Start Date End Date Alee Elizondo PA [address] [facility] [address] [place] [address] PCP - General Internal Medicine 07/05/23 Sharan Linton MD Referring Physician Gastroenterology 10/31/18 Martha Starks MD Consulting Physician Cardiology 12/24/20 Shama Hines MD [address] [facility] [address] Consulting Physician Pain Management 01/19/21 Artis Grewal MD [address] [place] [address] Consulting Physician Rheumatology 01/30/21 Amy Mayes NP [address] [facility] [address] [place] [address] [address] [place] [address] Nurse Practitioner Cardiovascular Disease 04/20/24 Shailesh Dunn MD [address] [address] Consulting Physician Pulmonary Disease 04/20/24 Sangita Farrar PA [address] [place] [address] Physician Supervisor Contact Lens Rheumatology 05/15/24 documented as of this encounter
--- OUTSIDE RECORDS SUMMARY | 2024-10-13 15:24 | XMS_ITS | Encounter Summary ---
Author Organization [facility] Facility Care Team Providers Care Supervising Fire Marshal Name Role Phone Alee Elizondo Primary Care Provider + [phone] Sharan Linton MD Unavailable [phone] Taisha Gomez MD Unavailable [phone] Parag Soto MD Unavailable [phone] [facility] Center[facility]h MD Unavailable [phone] Puneet Uribe MD Unavailable [phone] Shama Hines MD Unavailable Artis Grewal MD Unavailable [phone] Harrison Pena RN Unavailable +[phone] Nafisa Gregg RN Unavailable Tho Kelsey MD Primary Care Provider [phone] Alee Elizondo Primary Care Provider + [phone] Amy Mayes NP Unavailable [phone] Shailesh Dunn MD Unavailable [phone] Sangita Farrar Unavailable [phone] Encounter Details Date Type Department Care Team (Latest Contact Info) Description 09/29/2015 Orders Only [facility] CLINCONV Provider, MD Tania [address] [place] [address] Social History Tobacco Use Types Packs/Day Years Used Date Smoking Tobacco: Never Assessed Comments Unknown Sex and Gender Information Value Date Recorded Sex Assigned at Not on file Legal Sex Female 8:04 PM GEOSPATIAL PROGRAM MANAGEMENT OFFICER Gender Identity Female 02/15/2020 6:08 PM [...] COVID: Suspected 08/13/2021 08/14/2021 08/14/2021 3:06 AM GEOSPATIAL PROGRAM MANAGEMENT OFFICER COVID: Suspected 08/14/2021 08/14/2021 08/15/2021 3:05 AM GEOSPATIAL PROGRAM MANAGEMENT OFFICER COVID: Suspected 08/14/2021 08/14/2021 08/15/2021 6:25 AM GEOSPATIAL PROGRAM MANAGEMENT OFFICER COVID: Suspected 06/02/2023 06/02/2023 06/02/2023 7:25 PM GEOSPATIAL PROGRAM MANAGEMENT OFFICER COVID: Suspected 07/26/2023 07/26/2023 07/26/2023 3:10 PM GEOSPATIAL PROGRAM MANAGEMENT OFFICER COVID: Suspected 09/25/2024 09/25/2024 09/25/2024 11:03 AM CDT Influenza, adult 09/25/2024 09/25/2024 10/02/2024 3:05 AM CDT documented as of this encounter Care Teams Supervising Fire Marshal Relationship Specialty Start Date End Date Alee Elizondo PA [address] [facility] 500 [place] [address] PCP - General Internal Medicine 02/01/17 06/29/23 Tho Kelsey MD [address] [place] [address] DR [facility] [address] [place] [address] PCP - General Family Medicine 06/30/23 07/04/23 Alee Elizondo PA [address] [place] [address] PCP - General Internal Medicine 07/05/23 Sharan Linton MD [address] [place] [address] Referring Physician Gastroenterology 10/31/18 Taisha Gomez MD [address] [place] [address] Referring Physician Pulmonary Disease 10/31/18 12/23/20 Parag Soto MD [address] [place] [address] Referring Physician Rheumatology 10/31/18 12/23/20 Martha Starks MD [address] [place] [address] Consulting Physician Cardiology 12/24/20 Puneet Uribe MD [address] [facility] [address] [place] [address] Consulting Physician Rheumatology 12/24/20 01/29/21 Shama Hines MD 4700 [facility], [facility] [address] [place] [address] Consulting Physician Pain Management 01/19/21 Artis Grewal MD [address] [place] [address] Consulting Physician Rheumatology 01/30/21 Harrison Pena, JULIUS [address] [place] [address] Taxicab Starter 05/30/23 09/04/23 Nafisa Gregg RN [address] [place] [address] [address] [place] [address] Taxicab Starter 06/06/23 06/12/23 Amy Mayes NP [address] [address] Nurse Practitioner Cardiovascular Disease 04/20/24 Shailesh Dunn MD [address] [address] Consulting Physician Pulmonary Disease 04/20/24 Sangita Farrar PA [address] [place] [address] Physician Motion Picture Camera Operator Rheumatology 05/15/24 documented as of this encounter
--- OUTSIDE RECORDS SUMMARY | 2024-10-13 15:24 | XMS_ITS | Encounter Summary ---
Author Organization [facility] Facility Care Team Providers Care Tearoom Host Name Role Phone Alee Elizondo Primary Care Provider + [phone] Sharan Linton MD Unavailable [phone] Taisha Gomez MD Unavailable [phone] Parag Soto MD Unavailable [phone] RaziaMartha singh MD Unavailable [phone] Puneet Uribe MD Unavailable [phone] Shama Hines MD Unavailable Artis Grewal MD Unavailable [phone] Harrison Pena RN Unavailable [phone] Nafisa Gregg RN Unavailable [phone] Tho Kelsey MD Primary Care Provider [phone] Alee Elizondo Primary Care Provider + [phone] Amy Mayes NP Unavailable [phone] Shailesh Dunn MD Unavailable [phone] Sangita Farrar Unavailable [phone] Encounter Details Date Type Department Care Team (Latest Contact Info) Description 04/19/2016 Orders Only [facility] CLINCONV Provider, MD Tania [address] [place] [address] Social History Tobacco Use Types Packs/Day Years Used Date Smoking Tobacco: Never Alcohol Use Standard Drinks/Week Comments No 0 (1 standard drink = 0.6 oz pur e alcohol) Comments Unknown Sex and Gender Information Value Date Recorded Sex Assigned at Not on file Legal Sex Female 8:04 PM SALES EXECUTIVE Gender Identity Female 02/15/2020 6:08 [...] COVID: Suspected 08/13/2021 08/14/2021 08/14/2021 3:06 AM SALES EXECUTIVE COVID: Suspected 08/14/2021 08/14/2021 08/15/2021 3:05 AM SALES EXECUTIVE COVID: Suspected 08/14/2021 08/14/2021 08/15/2021 6:25 AM SALES EXECUTIVE COVID: Suspected 06/02/2023 06/02/2023 06/02/2023 7:25 PM SALES EXECUTIVE COVID: Suspected 07/26/2023 07/26/2023 07/26/2023 3:10 PM SALES EXECUTIVE COVID: Suspected 09/25/2024 09/25/2024 09/25/2024 11:03 AM CDT Influenza, adult 09/25/2024 09/25/2024 10/02/2024 3:05 AM CDT documented as of this encounter Care Teams Tearoom Host Relationship Specialty Start Date End Date Alee Elizondo PA 10[address] [facility] 500 [place] [address] PCP - General Internal Medicine 02/01/17 06/29/23 Tho Kelsey MD [address] [place] [address] DR [facility] [address] [place] [address] PCP - General Family Medicine 06/30/23 07/04/23 Alee Elizondo PA [address] [place] [address] PCP - General Internal Medicine 07/05/23 Sharan Linton MD [address] [place] [address] Referring Physician Gastroenterology 10/31/18 Taisha Gomez MD [address] [place] [address] Referring Physician Pulmonary Disease 10/31/18 12/23/20 Parag Soto MD [address] [place] [address] Referring Physician Rheumatology 10/31/18 12/23/20 Martha Starks MD [address] [place] [address] Consulting Physician Cardiology 12/24/20 Puneet Uribe MD [address] [facility] [address] [place] [address] Consulting Physician Rheumatology 12/24/20 01/29/21 Shama Hines MD 4700 [facility], [facility] [address] [place] [address] Consulting Physician Pain Management 01/19/21 Artis Grewal MD [address] [place] [address] Consulting Physician Rheumatology 01/30/21 Harrison Pena, JULIUS [address] [place] [address] Rotoformer Backtender 05/30/23 09/04/23 Nafisa Gregg, JULIUS [address] [place] [address] [address] [place] [address] Rotoformer Backtender 06/06/23 06/12/23 Amy Mayes NP [address] [address] Nurse Practitioner Cardiovascular Disease 04/20/24 Shailesh Dunn MD 4600 [facility] [address] [place] [address] Consulting Physician Pulmonary Disease 04/20/24 Sangita Farrar PA [address] [place] [address] Physician Shuttle Driver Rheumatology 05/15/24 documented as of this encounter
--- OUTSIDE RECORDS SUMMARY | 2024-10-13 15:25 | XMS_ITS | Encounter Summary ---
Author Organization [facility] Facility Care Team Providers Care Financial Institution Treasurer Name Role Phone Alee Elizondo Primary Care Provider + [phone] Sharan Linton MD Unavailable [phone] Taisha Gomez MD Unavailable [phone] Parag Soto MD Unavailable [phone] RaziaMartha singh MD Unavailable [phone] Puneet Uribe MD Unavailable [phone] Shama Hines MD Unavailable Artis Grewal MD Unavailable [phone] Harrison Pena RN Unavailable [phone] Nafisa Gregg RN Unavailable Tho Kelsey MD Primary Care Provider [phone] Alee Elizondo Primary Care Provider + [phone] Amy Mayes NP Unavailable [phone] Shailesh Dunn MD Unavailable [phone] Sangita Farrar Unavailable [phone] Encounter Details Date Type Department Care Team (Latest Contact Info) Description 06/28/2016 Orders Only [facility] CLINCONV Provider, MD Tania [address] [place] [address] Social History Tobacco Use Types Packs/Day Years Used Date Smoking Tobacco: Never Alcohol Use Standard Drinks/Week Comments No 0 (1 standard drink = 0.6 oz pur e alcohol) Comments Unknown Sex and Gender Information Value Date Recorded Sex Assigned at Not on file Legal Sex Female 8:04 PM CUTTER DOWN Gender Identity Female 02/15/2020 6:08 PM CDT Sexual Orientation Not on file documented as of this encounter Plan of Treatment Not on file documented as of this encounter Procedures Procedure Name Priority Date/Time Associated Diagnosis Comments SCAN - LABS 06/29/2016 12:00 AM CUTTER DOWN documented in this encounter Results * SCAN - LABS (06/29/2016 12:00 AM CUTTER DOWN) Narrative 06/29/2016 12:00 AM CUTTER DOWN Ordered by an unspecified provider. Historical Provider MD Final Res ult documented in this encounter Visit Diagnoses Not on filedocumented in this encounter Additional Health Concerns Infection Onset Date Last Indicated Resolved Time COVID: Suspected 08/13/2021 08/14/2021 08/14/2021 3:06 AM CUTTER DOWN COVID: Suspected 08/14/2021 08/14/2021 08/15/2021 3:05 AM CUTTER DOWN COVID: Suspected 08/14/2021 08/14/2021 08/15/2021 6:25 AM CUTTER DOWN COVID: Suspected 06/02/2023 06/02/2023 06/02/2023 7:25 PM CUTTER DOWN COVID: Suspected 07/26/2023 07/26/2023 07/26/2023 3:10 PM CUTTER DOWN COVID: Suspected 09/25/2024 09/25/2024 09/25/2024 11:03 AM CDT Influenza, adult 09/25/2024 09/25/2024 10/02/2024 3:05 AM CDT documented as of this encounter Care Teams Financial Institution Treasurer Relationship Specialty Start Date End Date Alee Elizondo PA 10[address] [facility] 500 [place] [address] PCP - General Internal Medicine 02/01/17 06/29/23 Tho Kelsey MD [address] [place] [address] [address] [place] [address] PCP - General Family Medicine 06/30/23 07/04/23 Alee Elizondo PA [address] [place] [address] PCP - General Internal Medicine 07/05/23 Sharan Linton MD [address] [place] [address] Referring Physician Gastroenterology 10/31/18 Taisha Gomez MD [address] [place] [address] Referring Physician Pulmonary Disease 10/31/18 12/23/20 Parag Soto MD [address] [place] [address] Referring Physician Rheumatology 10/31/18 12/23/20 Martha Starks MD [address] [place] [address] Consulting Physician Cardiology 12/24/20 Puneet Uribe MD [address] [place] [address] Consulting Physician Rheumatology 12/24/20 01/29/21 Shama Hines MD 4700 [facility], [address] [place] [address] Consulting Physician Pain Management 01/19/21 Artis Grewal MD [address] [place] [address] Consulting Physician Rheumatology 01/30/21 Harrison Pena, JULIUS [address] [place] [address] Fire Hydrant Operator 05/30/23 09/04/23 Nafisa Gregg, JULIUS [address] [place] [address] [facility] [address] [place] [address] Fire Hydrant Operator 06/06/23 06/12/23 Amy Mayes NP [address] [facility] [address] [place] [address] Nurse Practitioner Cardiovascular Disease 04/20/24 Shailesh Dunn MD 4600 [facility] [address] [place] [address] Consulting Physician Pulmonary Disease 04/20/24 Sangita Farrar PA [address] [place] [address] Physician Global [employer] Rheumatology 05/15/24 documented as of this encounter
--- OUTSIDE RECORDS SUMMARY | 2024-10-13 15:25 | XMS_ITS | Continuity of Care Document ---
Author Organization [facility] [place] Address [address] [place] [address] [address] [place] [address] Phone Care Team Providers Care Brothel Keeper Name Role Phone Torsten Ramesh Unavailable Unavailable [...] Date Provider Providers Copied on Encounter [facility], [address], [place], [place], [id number], [place] tel:[phone] [place] No Information 0 5 Muehl Torsten. [address] [facility] [place], [address], [place], [address], [place]. tel: [phone] Referring Provider: Alee Elizondo, [address] [place] [address] [address], [place], [address]. tel:[phone] [facility] [address], [place], [place], [id number], [place] tel:[phone] [place] No Information 0 4 Muehl Torsten. [address] [place] [address], [address], [place], [address], [place]. tel: [phone] Referring Provider: Alee Elizondo, [address] [place] [address] [address], [place], [address]. tel:[phone] [place] [address] [address], [place], [place], [id number], [place] tel:[phone] [place] No Information 0 4 Muehl Torsten. [address] [place] [address], [address], [place], [address], [place]. tel: [phone] Referring Provider: Alee Elizondo, [address] [place] [address] [address], [place], [address]. tel:[phone] [facility] [address], [place], [id number], [place] tel:[phone] [place] No Information 2 4 Muehl Torsten. [address] [place] [address], [address], [place], [address], [place]. tel: [phone] Referring Provider: Alee Elizondo, [address], [place], [address]. tel:[phone] [facility], [place], [id number], [place] tel:[phone] [place] No Information 4 Muehl Torsten. [address] [facility], [place], [facility] [address], [place], [facility], . tel: [phone] Referring Provider: Alee Elizondo, [address] [place] [address] [address], [place], [address]. tel:[phone] [facility] [facility] [address], [place], [id number], [place] tel:[phone] [place] No Information Phill Torsten. [address] [place] [address], [address], [place], [facility], [place]. tel: [phone] Referring Provider: Alee Elizondo, [address] [place] [address] [address], [place], [address]. tel:[phone] [facility] [facility] [address], [place], [id number], [place] tel:[phone] [place] No Information Phill Torsten. [address] [place] [address], [address], [place], [facility], [place]. tel: [phone] Referring Provider: Alee Elizondo, [address] [place] [address] [address], [place], [address]. tel:[phone] [facility] [facility] [address], [place], [id number], [place] tel:[phone] [place] Lumbago 4 Muehl Torsten. [address] [facility], [place], [address], [place], [address], [place]. tel: [phone] Referring Provider: Alee Elizondo, [facility], [place], [address]. tel:[phone] Family History Family Member Type Diagnosis Age [...]
--- OUTSIDE RECORDS SUMMARY | 2024-10-13 15:25 | XMS_ITS | Clinical Summary ---
Author Organization [facility] [address] Address [address] [place] [address] Care Team Providers Care Disease Intervention Specialist Name Role Phone Sharan Linton MD Unavailable [phone] Martha Starks MD Unavailable [phone] Shama Hines MD Unavailable Artis Grewal MD Unavailable [phone] Alee Elizondo Primary Care Provider [phone] Amy Mayes NP Unavailable [phone] Shailesh Dunn MD Unavailable [phone] Sangita Farrar Unavailable Allergies Active Allergy Reactions [...] provided. Assessment & Plan (05/07/2024 8:56 PM SENIOR CYTOTECHNOLOGIST): Discussed the patient's BMI. The BMI is [...] provided. Assessment & Plan (09/06/2023 9:38 AM SENIOR CYTOTECHNOLOGIST): Discussed the patient's BMI. The BMI is above average. BMI management plan is completed. BMI Follow-up includes: nutrition counseling, exercise counseling and education provided. Patient has an obesity-related condition (not limited to: hypertension, obstructive sleep apnea, osteoarthritis, hyperlipidemia, diabetes, etc.). Therefore, morbid obesity may be documented for patients with a BMI between 35.00-39.99. Assessment & Plan (08/07/2023 7:51 PM SENIOR CYTOTECHNOLOGIST): Discussed the patient's BMI. The BMI is above average. BMI management plan is completed. BMI Follow-up includes: nutrition counseling, exercise counseling and education provided. Patient has an obesity-related condition (not limited to: hypertension, obstructive sleep apnea, osteoarthritis, hyperlipidemia, diabetes, etc.). Therefore, morbid obesity may be documented for patients with a BMI between 35.00-39.99. Assessment & Plan (08/03/2023 7:45 AM SENIOR CYTOTECHNOLOGIST): Discussed the patient's BMI. The BMI is above average. BMI management plan is completed. BMI Follow-up includes: nutrition counseling, exercise counseling and education provided. Primary osteoarthritis of right knee 07/08/2023 Assessment & Plan (05/07/2024 8:56 PM SENIOR CYTOTECHNOLOGIST): Patient has arthritis in the right knee. Planning a total knee replacement with Dr. Alexus Motta on May 30 Assessment & Plan (08/03/2023 8:28 AM SENIOR CYTOTECHNOLOGIST): Continue per ortho. She is seeing some improvement but it is difficult to know if the knee is rheumatoid versus osteo versus other etiology. Will await recommendations from JACQUI Raya but definitely encouraged her to become active as soon as possible. Status post total knee replacement using cement, right 05/19/2023 Assessment & Plan (06/02/2023 4:56 PM SENIOR CYTOTECHNOLOGIST): Status post total knee replacement with Dr. Ge Sexton 04 May. She has just been released from rehab following up for her TCM visit. She appears to have an area of cellulitis at the incision site. She is also complaining of increased pain. Will check CBC CMP and inflammatory markers along with an x-ray. She plans to go to [facility] for the workup. Will follow up with [...] provided. Assessment & Plan (06/02/2023 8:27 AM SENIOR CYTOTECHNOLOGIST): Discussed the patients BMI: The BMI is [...] 12/20/2022 Assessment & Plan (05/07/2024 8:55 PM SENIOR CYTOTECHNOLOGIST): Patient is on medication for her rheumatoid arthritis managed by [facility] Assessment & Plan (01/22/2024 8:13 PM CDT): Medications from [facility] contribute to her immunosuppressive state. Assessment & Plan (09/06/2023 9:41 AM SENIOR CYTOTECHNOLOGIST): Medications are managed by [facility] for her rheumatoid arthritis Assessment & Plan (04/06/2023 7:44 PM CDT): Managed by [facility]. Currently on Plaquenil methotrexate Orencia folic [...] capacity. Assessment & Plan (09/06/2023 9:41 AM SENIOR CYTOTECHNOLOGIST): Continue per . She did not tolerate [...] Pate. Assessment & Plan (07/18/2022 10:20 AM SENIOR CYTOTECHNOLOGIST): CT revealed pelvic lipomatosis that is compressing [...] 02/11/2022 Assessment & Plan (09/06/2023 9:41 AM SENIOR CYTOTECHNOLOGIST): No change. Dysfunction of both eustachian tubes 02/11/2022 Myalgia, lower leg 01/11/2022 PLMD (periodic limb movement disorder) Assessment & Plan (08/02/2024 11:49 AM SENIOR CYTOTECHNOLOGIST): Asymptomatic Assessment & Plan (06/22/2022 10:31 AM SENIOR CYTOTECHNOLOGIST): Will continue Requip 1 mg nightly Assessment [...] bedtime. Assessment & Plan (07/13/2021 11:25 AM SENIOR CYTOTECHNOLOGIST): Due to the patient stating that she [...] 06/04/2020 Assessment & Plan (08/23/2024 10:16 AM SENIOR CYTOTECHNOLOGIST): Hepatitis negative 06/2020 Tspot negative 06/2020 Continue routine lab monitoring Maintain routine eye exams throughout the duration of taking hydroxychloroquine Assessment & Plan (07/30/2024 8:24 AM SENIOR CYTOTECHNOLOGIST): Hepatitis negative 06/2020 Tspot negative 06/2020 Continue [...] hydroxychloroquine Assessment & Plan (09/01/2023 8:34 AM SENIOR CYTOTECHNOLOGIST): Hepatitis negative 06/2020 Tspot negative 06/2020 Continue routine lab monitoring Maintain routine eye exams throughout the duration of taking hydroxychloroquine Assessment & Plan (06/29/2023 2:19 PM SENIOR CYTOTECHNOLOGIST): Hepatitis negative 06/2020 Tspot negative 06/2020 Continue [...] hydroxychloroquine Assessment & Plan (07/14/2022 2:58 PM SENIOR CYTOTECHNOLOGIST): Hepatitis negative 06/2020 Tspot negative 06/2020 Continue routine lab monitoring Maintain routine eye exams throughout the duration of taking hydroxychloroquine Assessment & Plan (06/03/2022 9:58 AM SENIOR CYTOTECHNOLOGIST): Hepatitis negative 06/2020 Tspot negative 06/2020 Continue [...] hydroxychloroquine Assessment & Plan (09/03/2021 8:29 AM SENIOR CYTOTECHNOLOGIST): Hepatitis negative 06/2020 Tspot negative 06/2020 Continue routine lab monitoring Maintain routine eye exams throughout the duration of taking hydroxychloroquine Assessment & Plan (06/03/2021 4:17 PM SENIOR CYTOTECHNOLOGIST): Hepatitis negative 06/2020 Tspot negative 06/2020 Continue [...] hydroxychloroquine Assessment & Plan (09/02/2020 1:16 PM SENIOR CYTOTECHNOLOGIST): Hepatitis negative 06/2020 Tspot negative 06/2020 Continue routine lab monitoring Maintain routine eye exams throughout the duration of taking hydroxychloroquine Assessment & Plan (07/09/2020 12:23 PM SENIOR CYTOTECHNOLOGIST): Hepatitis negative 06/2020 Tspot negative 06/2020 Continue routine lab monitoring Maintain routine eye exams throughout the duration of taking hydroxychloroquine Drug-induced constipation 08/13/2019 Assessment & Plan (05/07/2024 8:54 PM SENIOR CYTOTECHNOLOGIST): Patient with chronic constipation. Has been on [...] linzess Assessment & Plan (08/13/2019 8:57 AM SENIOR CYTOTECHNOLOGIST): On Movantik with Dr. Soto Herpes zoster without complication 12/13/2018 Assessment & Plan (12/23/2018 10:18 PM CDT): Valtex to pharmacy. She has had shingles in the past. Pre-diabetes 10/31/2018 Assessment & Plan (05/07/2024 8:55 PM SENIOR CYTOTECHNOLOGIST): Pre-diabetes/hyperglycemia is a precursor to Dm. Stressed [...] diabetes. Assessment & Plan (09/06/2023 9:40 AM SENIOR CYTOTECHNOLOGIST): Pre-diabetes/hyperglycemia is a precursor to Dm. Stressed [...] diabetes. Assessment & Plan (09/11/2021 11:22 PM SENIOR CYTOTECHNOLOGIST): Pre-diabetes/hyperglycemia is a precursor to Dm. Stressed importance of working on diet (decrease your simple sugars and one carbohydrate with each meal) and increase you exercise to achieve weight loss and this will help prevent you from progressing to diabetes. Assessment & Plan (05/29/2021 8:18 PM SENIOR CYTOTECHNOLOGIST): Pre-diabetes/hyperglycemia is a precursor to Dm. Stressed [...] diabetes. Assessment & Plan (08/31/2020 9:34 AM SENIOR CYTOTECHNOLOGIST): Pre-diabetes is a precursor to Dm. Stressed [...] diabetes. Assessment & Plan (08/13/2019 9:00 AM SENIOR CYTOTECHNOLOGIST): This is a significant, separately identifiable problem [...] 10/31/2018 Assessment & Plan (05/07/2024 8:54 PM SENIOR CYTOTECHNOLOGIST): Depression symptoms are stable with Wellbutrin XL 150 Cymbalta 60 b.i.d. Assessment & Plan (04/21/2024 8:50 PM CDT): Depression symptoms are stable with the Wellbutrin XL 150 and Cymbalta 60 b.i.d. Assessment & Plan (01/22/2024 8:11 PM CDT): Depression symptoms are stable with Wellbutrin and Cymbalta Assessment & Plan (09/06/2023 9:40 AM SENIOR CYTOTECHNOLOGIST): Depression is stable with Wellbutrin and Cymbalta Assessment & Plan (08/03/2023 8:31 AM SENIOR CYTOTECHNOLOGIST): Stable with Cymbalta 60 and Wellbutrin XL [...] Cymbalta Assessment & Plan (09/11/2021 11:26 PM SENIOR CYTOTECHNOLOGIST): Continue Wellbutrin and Cymbalta Assessment & Plan (05/29/2021 8:22 PM SENIOR CYTOTECHNOLOGIST): Continue Wellbutrin and Cymbalta Assessment & Plan (05/24/2021 10:39 AM SENIOR CYTOTECHNOLOGIST): Continue Wellbutrin and Cymbalta Assessment & Plan (12/24/2020 9:07 AM CDT): Continue wellbutrin and cymbalta Assessment & Plan (08/31/2020 9:35 AM SENIOR CYTOTECHNOLOGIST): Continue wellbutrin and cymbalta Assessment & Plan (02/18/2020 9:47 PM CDT): Stable with the Cymbalata Assessment & Plan (08/13/2019 8:59 AM SENIOR CYTOTECHNOLOGIST): Stable with Cymbalta and Wellbutrin Assessment & [...] regimen. Med list updated to reflect the [id number] one daily and Prozac 40mg. Mixed hyperlipidemia 03/29/2018 Assessment & Plan (05/07/2024 8:54 PM SENIOR CYTOTECHNOLOGIST): Encouraged patient to follow low fat/low chol [...] statin Assessment & Plan (09/06/2023 9:42 AM SENIOR CYTOTECHNOLOGIST): Encouraged patient to follow low fat/low chol [...] statin Assessment & Plan (09/11/2021 11:26 PM SENIOR CYTOTECHNOLOGIST): Encouraged patient to follow low fat/low chol diet like the Mediterranean diet. Increase good fats in the diet. Increase exercise. Monitor labs as needed. Continue statin Assessment & Plan (05/29/2021 8:22 PM SENIOR CYTOTECHNOLOGIST): Encouraged patient to follow fat/low chol diet like the Mediterranean diet. Increase good fats in the diet. Increase exercise. Monitor labs as needed. Continue statin Assessment & Plan (05/24/2021 10:39 AM SENIOR CYTOTECHNOLOGIST): Encouraged patient to follow fat/low chol diet like the Mediterranean diet. Increase good fats in the diet. Increase exercise. Monitor labs as needed. Continue statin Assessment & Plan (12/24/2020 9:07 AM CDT): Encouraged patient to follow fat/low chol diet like the Mediterranean diet. Increase good fats in the diet. Increase exercise. Monitor labs as needed. Continue statin Assessment & Plan (08/31/2020 9:34 AM SENIOR CYTOTECHNOLOGIST): Encouraged patient to follow fat/low chol diet like the Mediterranean diet. Increase good fats in the diet. Increase exercise. Monitor labs as needed. Continue statin Assessment & Plan (02/18/2020 9:46 PM CDT): Encouraged patient to continue low fat/low chol diet. Continue exercise. Increase good fats in the diet. Monitor labs as needed. Assessment & Plan (08/13/2019 8:59 AM SENIOR CYTOTECHNOLOGIST): Encouraged patient to continue low fat/low chol [...] future Assessment & Plan (09/06/2023 9:40 AM SENIOR CYTOTECHNOLOGIST): Continue PPI Assessment & Plan (04/06/2023 7:36 PM CDT): Continue PPI p.r.n. Assessment & Plan (01/20/2023 8:13 PM CDT): Continue PPI Assessment & Plan (09/12/2022 6:13 PM CDT): Continue PPI p.r.n. Assessment & Plan (06/03/2022 3:40 PM SENIOR CYTOTECHNOLOGIST): Pyrosis poorly controlled on Nexium. Pt has [...] PPI Assessment & Plan (09/11/2021 11:26 PM SENIOR CYTOTECHNOLOGIST): Continue PPI Assessment & Plan (12/24/2020 9:05 AM CDT): Continue PPI Assessment & Plan (02/18/2020 9:45 PM CDT): Continue PPI. Saw Dr. Linton for increased GERD sxs. If persist, encouraged to followup again with Dr. Linton. Assessment & Plan (08/13/2019 8:58 AM SENIOR CYTOTECHNOLOGIST): Stable with PPI Assessment & Plan (04/29/2019 [...] exertion) Assessment & Plan (06/22/2022 10:30 AM SENIOR CYTOTECHNOLOGIST): Patient is not currently using inhalers. She [...] 10/14/2015 Assessment & Plan (08/02/2024 11:49 AM SENIOR CYTOTECHNOLOGIST): Due to the patient stating the pressure [...] readjusted. She denied need for supplies. DME [facility] patient Assessment & Plan (05/07/2024 8:55 PM SENIOR CYTOTECHNOLOGIST): Continue with CPAP. Assessment & Plan (04/21/2024 8:49 PM CDT): Continue per Dr. Dunn. Has all her needed supplies for CPAP which she is using every night. Continue with Requip 0.5 mg HS for restless leg Assessment & Plan (01/22/2024 8:08 PM CDT): Continue CPAP per Dr. Dunn Assessment & Plan (09/06/2023 9:40 AM SENIOR CYTOTECHNOLOGIST): Continue CPAP Assessment & Plan (06/21/2023 10:14 AM SENIOR CYTOTECHNOLOGIST): Patient continue to wear her CPAP at [...] CPAP Assessment & Plan (06/22/2022 10:31 AM SENIOR CYTOTECHNOLOGIST): Will continue CPAP therapy at an auto titrating range of 7-20 cm water pressure. Denied need for supplies. [facility] patient Assessment & Plan (05/02/2022 9:15 [...] water pressure. Patient denied need for supplies. [facility] patient. Patient is benefitting CPAP Assessment & Plan (09/11/2021 11:22 PM SENIOR CYTOTECHNOLOGIST): Continue CPAP. Patient has all needed supplies. Assessment & Plan (07/13/2021 11:27 AM SENIOR CYTOTECHNOLOGIST): Due to the patient stating she does not have enough pressure in her machine, I have increased the pressure to 13 cm water pressure. The patient denied need for for supplies. [facility] patient. Have also ordered a new smart card set at 13 cm water pressure. Benefitting from CPAP therapy Assessment & Plan (05/29/2021 8:14 PM SENIOR CYTOTECHNOLOGIST): Continue CPAP. Assessment & Plan (02/17/2021 11:09 AM CDT): The patient continues to be compliant with her CPAP at 8 cm water pressure. She has developed worsening daytime hypersomnia. She also has morning headaches and dry mouth. I have recommended proceeding with a CPAP titration study starting at 8 cm water pressure. Her DME is [facility] patient. Assessment & Plan (12/24/2020 9:04 AM CDT): Continue CPAP. Would like to see Pulm/sleep at [facility] as difficulty getting in consistently at [facility] and most of her care is now [facility] Assessment & Plan (02/18/2020 9:44 PM CDT): Continue CPAP Assessment & Plan (08/13/2019 8:46 AM SENIOR CYTOTECHNOLOGIST): Using the CPAP. Has equipment as needed. [...] examination. Assessment & Plan (08/23/2024 12:54 PM SENIOR CYTOTECHNOLOGIST): Moderate cdai with report of increasing pain, [...] needed. Assessment & Plan (07/30/2024 11:22 AM SENIOR CYTOTECHNOLOGIST): Moderate cdai with report of increased morning [...] with labs near her home ([facility] in [place]), but the following month will need to plan for an in person visit. She expressed understanding and agreement with this plan. Continue methotrexate 20 mg weekly, folic acid 2 mg daily, and hydroxychloroquine 200 mg BID. Labs today as below. Assessment & Plan (05/07/2024 8:55 PM SENIOR CYTOTECHNOLOGIST): Managed by [facility]. Currently on Plaquenil and methotrexate and Orencia folic acid Mobic and gabapentin. Stressed she needs to be in contact with her lei seller on when and which medicines to stop for the surgery. Assessment & Plan (04/21/2024 8:49 PM CDT): Continue per [facility]. They currently manage her rheumatoid arthritis [...] Plan (01/22/2024 8:17 PM CDT): Continue per [facility] as they manage her condition. Assessment & Plan (11/24/2023 9:58 AM CDT): Low cdai without inflammatory sounding pain. Will continue methotrexate 20 mg weekly, folic acid 2 mg daily, hydroxychloroquine 200 mg BID, and Orencia and monitor. Labs today as below. Follow up in 3 months or sooner as needed. Assessment & Plan (09/06/2023 9:42 AM SENIOR CYTOTECHNOLOGIST): Rheumatoid arthritis is managed by [facility]. Currently on Plaquenil methotrexate Orencia and folic acid Assessment & Plan (09/01/2023 3:39 PM SENIOR CYTOTECHNOLOGIST): Overall stable without notable synovitis and no inflammatory sounding pain. Will continue methotrexate 20 mg weekly, folic acid 2 mg daily, hydroxychloroquine 200 mg BID, and Orencia and monitor. Labs today as below. Follow up in 3 months or sooner as needed. Assessment & Plan (08/03/2023 8:28 AM SENIOR CYTOTECHNOLOGIST): Continue with rheumatology. Assessment & Plan (06/30/2023 12:43 PM SENIOR CYTOTECHNOLOGIST): Overall stable without notable synovitis and no inflammatory sounding pain. Will continue methotrexate 20 mg weekly, folic acid 2 mg daily, hydroxychloroquine 200 mg BID, and Orencia and monitor. Labs today as below. Assessment & Plan (06/02/2023 4:49 PM SENIOR CYTOTECHNOLOGIST): Continue per Rheumatology Assessment & Plan (04/06/2023 7:35 PM CDT): Continue per Rheumatology. She has been in discussion with them on what medications to stop prior to her knee surgery. She states she was told to take all of her medicines accept the Orencia. Assessment & Plan (01/20/2023 8:12 PM CDT): Continue per Rheumatology [facility] Assessment & Plan (01/13/2023 3:42 [...] Plan (09/12/2022 6:06 PM CDT): Continue with [facility] Assessment & Plan (07/15/2022 1:41 PM SENIOR CYTOTECHNOLOGIST): Low cdai. Significantly improved after IM triamcinolone [...] needed. Assessment & Plan (06/03/2022 3:37 PM SENIOR CYTOTECHNOLOGIST): High cdai. Previously felt well controlled with current regimen. Due to burden of disease will give patient a triamcinolone injection. Patient made aware of SE of steroids including but not limited to HTN, increased blood glucose, cataracts, glaucoma, AVN, and osteoporosis with terminologist use. Should she flare again shortly after [...] (01/23/2022 4:57 PM CDT): Continue management per [facility] Assessment & Plan (12/07/2021 9:02 AM CDT): Low cdai. Denies inflammatory sounding joint pain. Continue methotrexate 25 mg weekly, folic acid to 2 mg daily, Rinvoq 15 mg daily, hydroxychloroquine 200 mg BID, and cyclobenzaprine 5 mg qhs and monitor. Labs today as below. Plan for follow up in 3 months or sooner as needed. Assessment & Plan (09/11/2021 11:14 PM SENIOR CYTOTECHNOLOGIST): Continue per [facility] Assessment & Plan (09/03/2021 11:25 AM SENIOR CYTOTECHNOLOGIST): cdai = 12. Pt suspects increased joint [...] needed. Assessment & Plan (06/04/2021 10:25 AM SENIOR CYTOTECHNOLOGIST): Low cdai. Denies inflammatory sounding pain at present. Will plan to continue methotrexate 25 mg weekly, folic acid to 2 mg daily, Rinvoq 15 mg daily, hydroxychloroquine 200 mg BID, and cyclobenzaprine 5 mg qhs and monitor. Labs today as below. Plan for follow up in 3 months or sooner as needed. Assessment & Plan (05/31/2021 9:15 PM SENIOR CYTOTECHNOLOGIST): Continue per Rheumatology Assessment & Plan (05/29/2021 8:13 PM SENIOR CYTOTECHNOLOGIST): Continue per Rheumatology. Currently on Plaquenil methotrexate and folic acid. Assessment & Plan (05/24/2021 10:38 AM SENIOR CYTOTECHNOLOGIST): Continue per Rheumatology Assessment & Plan (03/05/2021 [...] needed. Assessment & Plan (09/03/2020 12:22 PM SENIOR CYTOTECHNOLOGIST): Low cdai. Continues to feel improved with [...] needed. Assessment & Plan (08/31/2020 9:34 AM SENIOR CYTOTECHNOLOGIST): Continue per [facility] Assessment & Plan (07/09/2020 12:22 PM SENIOR CYTOTECHNOLOGIST): 64yoF with a h/o seropositive RA diagnosed [...] time. Assessment & Plan (06/04/2020 11:14 AM SENIOR CYTOTECHNOLOGIST): 64yoF with a h/o seropositive RA diagnosed [...] needed. Assessment & Plan (05/14/2020 9:33 PM SENIOR CYTOTECHNOLOGIST): Refer to new [facility] Nurse as Dr. Soto has . Assessment & Plan (02/18/2020 9:46 PM CDT): Continue per Rheum Assessment & Plan (08/13/2019 8:59 AM SENIOR CYTOTECHNOLOGIST): Continue per Dr. Soto Assessment & Plan [...] responding to Reclast. Forteo was tried by [facility] and she could not tolerate. Has [...] of her osteoporosis, recommended evaluation by the [facility], unfortunately their first available appt was in November 2024. Recommended today that she check with [facility] Oste[facility] (at [facility]) to see how far out they are scheduling new patients, though she does not like this option due to distance from her house. Assessment & Plan (09/06/2023 9:40 AM SENIOR CYTOTECHNOLOGIST): Managed by [facility]. Per patient they are making a referral to bone metabolism at [facility] she has not seen significant improvement with the Forteo or the Reclast. Assessment & Plan (09/01/2023 3:43 PM SENIOR CYTOTECHNOLOGIST): DEXA: Lspine BMD 0.809 Tscore -2.2, L [...] of her osteoporosis, recommend evaluation by the [facility], provided contact info for Dr. Castillo. Pt in agreement with plan. Assessment & Plan (06/30/2023 12:49 PM SENIOR CYTOTECHNOLOGIST): DEXA: Lspine BMD 0.809 Tscore -2.2, L [...] PM CDT): Continue to monitor. Managed by [facility]. Patient is on Reclast calcium vitamin-D [...] exercise Assessment & Plan (07/15/2022 1:42 PM SENIOR CYTOTECHNOLOGIST): 01/27/2021 DEXA: Lspine -1.8, L femoral neck -1.9, L total hip -1.2, R femoral neck -2.3, R total hip -1.0, FRAX major 32% and hip 7%. Received Reclast 07/2021. Continue yearly Reclast, scheduled for 07/22 Assessment & Plan (06/03/2022 3:38 PM SENIOR CYTOTECHNOLOGIST): 01/27/2021 DEXA: Lspine -1.8, L femoral neck [...] Plan (01/23/2022 5:02 PM CDT): Managed by [facility] currently on Reclast calcium and vitamin-D Assessment & Plan (12/07/2021 9:04 AM CDT): 01/27/2021 DEXA: Lspine -1.8, L femoral neck -1.9, L total hip -1.2, R femoral neck -2.3, R total hip -1.0, FRAX major 32% and hip 7%. Received Reclast 07/2021. Continue yearly Reclast. Assessment & Plan (09/03/2021 11:26 AM SENIOR CYTOTECHNOLOGIST): 01/27/2021 DEXA: Lspine -1.8, L femoral neck -1.9, L total hip -1.2, R femoral neck -2.3, R total hip -1.0, FRAX major 32% and hip 7%. Received Reclast 07/2021. Continue yearly reclast and daily vitamin D-calcium supplement. Assessment & Plan (06/04/2021 10:27 AM SENIOR CYTOTECHNOLOGIST): 01/27/2021 DEXA: Lspine -1.8, L femoral neck [...] order provided today, she will schedule at [facility] Assessment & Plan (12/24/2020 9:06 AM CDT): Continue Reclast thru Rheum Continue calcium, vitD and exercise Assessment & Plan (12/03/2020 10:45 AM CDT): Vitamin D level was 68. Received Reclast 07/09/2020. Last DEXA per available records was 01/31/2019, due this summer - order provided today, she will schedule at [facility] Assessment & Plan (09/03/2020 12:23 PM SENIOR CYTOTECHNOLOGIST): Vitamin D level was 68. Received Reclast 07/09/2020. Last DEXA per available records was 01/31/2019, due this summer. Assessment & Plan (07/09/2020 12:23 PM SENIOR CYTOTECHNOLOGIST): Overdue for Reclast, last infusion was 03/28/2019, will receive infusion today. Vitamin D level was 68 Last DEXA per available records was 01/31/2019 Assessment & Plan (06/04/2020 11:15 AM SENIOR CYTOTECHNOLOGIST): Overdue for Reclast, last infusion was 03/28/2019, will check benefits. Recheck vitamin D level now. Last DEXA per available records was 01/31/2019 Assessment & Plan (02/18/2020 9:46 PM CDT): Calcium, vit D and exercise. Continue to monitor DXA Assessment & Plan (08/13/2019 8:58 AM SENIOR CYTOTECHNOLOGIST): Continue with Calcium, Vit D and Exercise. Recheck DXA iin Fall 2019 with mammogram Resolved Problems Problem Noted Date Diagnosed Date Resolved Date Encounter for pre-operative examination 05/07/2024 10/09/2024 Assessment & Plan (05/07/2024 8:57 PM SENIOR CYTOTECHNOLOGIST): I have examined this patient and ordered [...] Krishnamurthy. 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 Daniels Stressed importance of very close follow-up BMI 37.0-37.9, adult 09/06/2023 024 Assessment & Plan (10/13/2023 7:38 AM CDT): Discussed the patient's BMI. The BMI is above average. BMI management plan is completed. BMI Follow-up includes: nutrition counseling, exercise counseling and education provided. Assessment & Plan (09/06/2023 9:42 AM SENIOR CYTOTECHNOLOGIST): Discussed the patient's BMI. The BMI is above average. BMI management plan is completed. BMI Follow-up includes: nutrition counseling, exercise counseling and education provided. Hyperglycemia 09/06/2023 09/06/2023 Positive depression screening 09/06/2023 09/06/2023 Annual physical exam 09/06/2023 024 Assessment & Plan (09/06/2023 9:43 AM SENIOR CYTOTECHNOLOGIST): Encouraged healthy lifestyle, good nutrition and exercise. Encouraged Calcium and Vitamin D and weight bearing exercise for bone health. Reviewed immunizations Reviewed age appropirate screenings. Orthopedic aftercare 08/09/2023 025 Right knee pain 08/09/2023 09/06/2023 Sinus congestion 08/07/2023 09/06/2023 Assessment & Plan (08/07/2023 7:54 PM SENIOR CYTOTECHNOLOGIST): Persistent sinusitis symptoms along with cough. Will start doxy b.i.d.. Start antihistamine (Claritin OR Zyrtec), Mucinex 12hour and Steroid nasal spray (Flonase). Push fluids. Rest. Supportive care. If sxs worsen or don\'t improve, pt is to followup in the office. Acute cough 08/07/2023 01/22/2024 Assessment & Plan (08/07/2023 7:55 PM SENIOR CYTOTECHNOLOGIST): Persistent sinusitis symptoms along with cough. Will start doxy b.i.d.. Start antihistamine (Claritin OR Zyrtec), Mucinex 12hour and Steroid nasal spray (Flonase). Push fluids. Rest. Supportive care. If sxs worsen or don\'t improve, pt is to followup in the office. BMI 35.0-35.9,adult 08/03/2023 09/06/19 24 Assessment & Plan (08/07/2023 7:51 PM SENIOR CYTOTECHNOLOGIST): Discussed the patient's BMI. The BMI is above average. BMI management plan is completed. BMI Follow-up includes: nutrition counseling, exercise counseling and education provided. Assessment & Plan (08/03/2023 8:29 AM SENIOR CYTOTECHNOLOGIST): Discussed the patient's BMI. The BMI is [...] 01/22/2024 Assessment & Plan (06/02/2023 4:57 PM SENIOR CYTOTECHNOLOGIST): Later in the day received critical lab call for a CO2 value at 42. My staff contacted the patient and she was instructed to go to the ER for further evaluation to determine underlying cause. She states throughout the day she has noticed a little bit more shortness of breath. [facility] Charge nurse was notified of the [...] surgery. Will defer cardiac clearance to her water conservation specialist. Her chronic medical conditions are stable. [facility] as instructed her to hold the [...] Dr. Ge Sexton on May 04 at [facility]. Need for vaccination for Strep [...] symptoms worsen or do not respond to ocpf-[id number] allergy medicines within the next week she [...] provided. Assessment & Plan (08/23/2022 2:19 PM SENIOR CYTOTECHNOLOGIST): Discussed the patient's BMI. The BMI is [...] plans Assessment & Plan (07/18/2022 10:20 AM SENIOR CYTOTECHNOLOGIST): CT revealed pelvic lipomatosis that is compressing [...] 12/20/2022 Assessment & Plan (07/18/2022 10:21 AM SENIOR CYTOTECHNOLOGIST): CT revealed pelvic lipomatosis that is compressing [...] plan, Assessment & Plan (07/08/2022 12:33 PM SENIOR CYTOTECHNOLOGIST): Patient has had dysuria. She was started [...] STAT abd/pelvis with and without contrast at [place]. Check labs STAT. Acute right flank pain 07/08/202204/06 Assessment & Plan (07/18/2022 10:21 AM SENIOR CYTOTECHNOLOGIST): CT revealed pelvic lipomatosis that is compressing [...] plan, Assessment & Plan (07/08/2022 5:58 PM SENIOR CYTOTECHNOLOGIST): Images from the original note were not [...] STAT abd/pelvis with and without contrast at [place]. Check labs STAT. STAT CT Abd/pelvis without [...] 09/06/2023 Assessment & Plan (07/08/2022 12:33 PM SENIOR CYTOTECHNOLOGIST): Patient has had dysuria. She was started [...] STAT. Assessment & Plan (07/06/2022 8:50 AM SENIOR CYTOTECHNOLOGIST): Pt presents with dysuria. Urine dip completed. [...] 35.00-39.99. Assessment & Plan (07/18/2022 10:23 AM SENIOR CYTOTECHNOLOGIST): Discussed the patient's BMI. The BMI is above average. BMI management plan is completed. BMI Follow-up includes: nutrition counseling, exercise counseling and education provided. Assessment & Plan (07/08/2022 12:30 PM SENIOR CYTOTECHNOLOGIST): Discussed the patient's BMI. The BMI is [...] She has received multiple injections from her lei seller regarding her knee but yesterday when she [...] 01/23/2022 Assessment & Plan (09/11/2021 11:28 PM SENIOR CYTOTECHNOLOGIST): Patient has never had a full skin exam. She has quite a few lesions scattered and would benefit from a full exam. Will make referral Annual physical exam 09/11/2021 022 Assessment & Plan (09/11/2021 11:28 PM SENIOR CYTOTECHNOLOGIST): Encouraged healthy lifestyle, good nutrition and exercise. Encouraged Calcium and Vitamin D and weight bearing exercise for bone health. Reviewed immunizations Reviewed age appropirate screenings. Cough 08/13/2021 01/23/2022 Assessment & Plan (08/13/2021 3:43 PM SENIOR CYTOTECHNOLOGIST): Patient to presume positive COVID/FLU until results are available and plan to self isolate for up to 10 days from the onset of sxs. Check COVID/FLU test thru [facility] collection site in [place]. Let pt know the newest CDC recommendations [...] future. Assessment & Plan (07/13/2021 11:28 AM SENIOR CYTOTECHNOLOGIST): I have ordered the patient Claritin 10 [...] provided. Assessment & Plan (09/11/2021 11:27 PM SENIOR CYTOTECHNOLOGIST): Obesity is unchanged. Discussed the patient's BMI. The BMI is above average. BMI management plan is completed. BMI Follow-up includes: nutrition counseling, exercise counseling and education provided. Assessment & Plan (05/29/2021 8:24 PM SENIOR CYTOTECHNOLOGIST): Obesity is unchanged. Discussed the patient's BMI. The BMI is above average. BMI management plan is completed. BMI Follow-up includes: nutrition counseling, exercise counseling and education provided. Assessment & Plan (05/12/2021 1:26 PM SENIOR CYTOTECHNOLOGIST): Obesity is unchanged. Discussed the patient's BMI. The BMI is above average. BMI management plan is completed. BMI Follow-up includes: nutrition counseling, exercise counseling and education provided. BMI 37.0-37.9, adult 05/12/2021 022 Assessment & Plan (09/11/2021 11:27 PM SENIOR CYTOTECHNOLOGIST): Obesity is unchanged. Discussed the patient's BMI. The BMI is above average. BMI management plan is completed. BMI Follow-up includes: nutrition counseling, exercise counseling and education provided. Assessment & Plan (05/29/2021 8:24 PM SENIOR CYTOTECHNOLOGIST): Obesity is unchanged. Discussed the patient's BMI. The BMI is above average. BMI management plan is completed. BMI Follow-up includes: nutrition counseling, exercise counseling and education provided. Assessment & Plan (05/12/2021 1:26 PM SENIOR CYTOTECHNOLOGIST): Obesity is unchanged. Discussed the patient's BMI. The BMI is above average. BMI management plan is completed. BMI Follow-up includes: nutrition counseling, exercise counseling and education provided. Tinea corporis 04/14/2021 01/23/2022 Assessment & Plan (05/31/2021 9:15 PM SENIOR CYTOTECHNOLOGIST): Improving with Lotrisone. Keep the area clean and dry Assessment & Plan (05/29/2021 8:24 PM SENIOR CYTOTECHNOLOGIST): Lotrisone to pharmacy. Encouraged her to keep the area clean and dry use her dryer to dry the skin before applying the cream. She is to call if symptoms worsen or do not resolve. Need for immunization against influenza 04/14/2021 05/31/2021 Assessment & Plan (05/29/2021 8:24 PM SENIOR CYTOTECHNOLOGIST): Fluid updated in the office Medicare annual wellness visit, subsequent 04/13/2021 05/31/2021 Assessment & Plan (05/29/2021 8:23 PM SENIOR CYTOTECHNOLOGIST): Encouraged healthy lifestyle, good nutrition and exercise. [...] 12/30/2020 Assessment & Plan (08/31/2020 9:31 AM SENIOR CYTOTECHNOLOGIST): Error. This should be right calf but PT order sent and corrected so unable to remove. Fatigue 08/31/2020 09/06/2023 Assessment & Plan (04/06/2023 7:43 PM CDT): Probably multifactorial. Check labs and followup to re-evaluate Assessment & Plan (05/02/2022 9:16 PM CDT): Probably multifactorial. Check labs and followup to re-evaluate Assessment & Plan (08/31/2020 9:34 AM SENIOR CYTOTECHNOLOGIST): Probably multifactorial. Check labs and followup to re-evaluate Pain in both lower extremities 08/31/2020 09/06/2023 Assessment & Plan (09/01/2023 3:41 PM SENIOR CYTOTECHNOLOGIST): Cramping lower leg pain has resolved with [...] 021 Assessment & Plan (08/31/2020 9:33 AM SENIOR CYTOTECHNOLOGIST): Obesity is unchanged. Discussed the patient's BMI. The BMI is above average. BMI management plan is completed. BMI Follow-up includes: nutrition counseling, exercise counseling and education provided. Pain of right calf 08/26/2020 Assessment & Plan (08/31/2020 9:31 AM SENIOR CYTOTECHNOLOGIST): This is a significant, separately identifiable problem that was evaluated and managed on the same day as the wellness exam Unable to rule out DVT with her calf pain/sxs. Check STAT Venous doppler. Recvd Results and discussed with patient via phone. Negative for DVT. Recommend PT. Prefers [place] Annual physical exam 08/24/2020 021 Assessment & Plan (08/31/2020 9:34 AM SENIOR CYTOTECHNOLOGIST): Encouraged healthy lifestyle, good nutrition and exercise. Encouraged Calcium and Vitamin D and weight bearing exercise for bone health. Reviewed immunizations Reviewed age appropirate screenings. Dizziness 05/07/2020 09/06/2023 Assessment & Plan (05/14/2020 9:35 PM SENIOR CYTOTECHNOLOGIST): Suspect the dizziness is inner ear related. [...] imaging. Assessment & Plan (05/07/2020 1:49 PM SENIOR CYTOTECHNOLOGIST): Declines to report to er now 'I [...] 05/14/2020 Assessment & Plan (05/07/2020 1:49 PM SENIOR CYTOTECHNOLOGIST): Declines to report to er now 'I [...] 12/30/2020 Assessment & Plan (05/07/2020 1:49 PM SENIOR CYTOTECHNOLOGIST): Declines to report to er now 'I [...] provided Assessment & Plan (05/31/2021 9:15 PM SENIOR CYTOTECHNOLOGIST): Mammogram order provided Assessment & Plan (02/18/2020 9:47 PM CDT): Mammogram order provided today Medicare annual wellness visit, subsequent 02/15/2020 02/15/2020 Precordial pain 09/04/2019 09/06/2023 Assessment & Plan (08/07/2023 7:50 PM SENIOR CYTOTECHNOLOGIST): Workup in the hospital. Cardiology states her [...] inhaler. Assessment & Plan (07/13/2021 11:26 AM SENIOR CYTOTECHNOLOGIST): The patient will continue with Dulera 2 [...] 020 Assessment & Plan (08/13/2019 8:59 AM SENIOR CYTOTECHNOLOGIST): Encouraged healthy lifestyle, good nutrition and exercise. Encouraged Calcium and Vitamin D and weight bearing exercise for bone health. Reviewed immunizations Reviewed age appropirate screenings. Obesity, morbid, BMI 40.0-49.9 08/13/2019 09/23/2020 Assessment & Plan (08/26/2020 7:10 AM SENIOR CYTOTECHNOLOGIST): Obesity is unchanged. Discussed the patient's BMI. The BMI is above average. BMI management plan is completed. BMI Follow-up includes: nutrition counseling, exercise counseling and education provided. Assessment & Plan (05/14/2020 9:33 PM SENIOR CYTOTECHNOLOGIST): Obesity is unchanged. Discussed the patient's BMI. [...] provided. Assessment & Plan (08/13/2019 8:58 AM SENIOR CYTOTECHNOLOGIST): Obesity is unchanged. Discussed the patient's BMI. [...] change Assessment & Plan (08/13/2019 9:01 AM SENIOR CYTOTECHNOLOGIST): This is a significant, separately identifiable problem [...] 01/22/2024 Assessment & Plan (09/06/2023 9:42 AM SENIOR CYTOTECHNOLOGIST): Probably multifactorial. Check labs and followup to re-evaluate Assessment & Plan (09/03/2021 11:28 AM SENIOR CYTOTECHNOLOGIST): She notes increased fatigue and lack of [...] re-evaluate Assessment & Plan (08/13/2019 9:08 AM SENIOR CYTOTECHNOLOGIST): Probably multifactorial. Check labs and followup to re-evaluate Check labs prior to next visit BMI 40.0-44.9, adult 08/02/2019 020 Assessment & Plan (08/13/2019 8:57 AM SENIOR CYTOTECHNOLOGIST): Obesity is unchanged. Discussed the patient's BMI. The BMI is above average. BMI management plan is completed. BMI Follow-up includes: nutrition counseling, exercise counseling and education provided. Assessment & Plan (08/02/2019 7:21 AM SENIOR CYTOTECHNOLOGIST): Obesity is unchanged. Discussed the patient's BMI. The BMI is above average. BMI management plan is completed. BMI Follow-up includes: nutrition counseling, exercise counseling and education provided. Morbid obesity 08/02/2019 08/13/2019 Assessment & Plan (08/02/2019 7:20 AM SENIOR CYTOTECHNOLOGIST): Obesity is unchanged. Discussed the patient's BMI. The BMI is above average. BMI management plan is completed. BMI Follow-up includes: nutrition counseling, exercise counseling and education provided. Acute non-recurrent maxillary sinusitis 08/02/2019 08/13/2019 Assessment & Plan (08/02/2019 7:47 AM SENIOR CYTOTECHNOLOGIST): Start antibiotic, antihistamine, Mucinex and Steroid nasal [...] foot. She is being sent directly to [facility] and they were working her [...] 21 Assessment & Plan (05/14/2020 9:33 PM SENIOR CYTOTECHNOLOGIST): Completed Doxy and steroid. No s/s infection. [...] p.r.n. 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 She is on aspirin and statin Assessment & Plan (12/24/2020 9:03 AM CDT): Sxs stable. On ASA, statin and encouraged daily exercise. Assessment & Plan (02/18/2020 9:43 PM CDT): Continue per cardio. On ASA and statin Assessment & Plan (08/13/2019 8:45 AM SENIOR CYTOTECHNOLOGIST): Continues with Dr. Alonso salmeron Assessment & Plan (11/01/2018 11:00 PM CDT): Pt sxs well controlled. 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 Continue per cardio Depression 07/16/2018 09/11/2021 Frontal sinusitis 06/26/2018 12/24/2020 Leukopenia 03/29/2018 12/30/2020 Other chronic pain 08/05/2017 3 Chronic seasonal allergic rh initis due to pollen 04/25/2017 12/30/2020 Assessment & Plan (12/24/2020 9:03 AM CDT): Continue current regimen with singulair and otc Assessment & Plan (02/18/2020 9:44 PM CDT): Continue with otc regimen Assessment & Plan (08/13/2019 8:46 AM SENIOR CYTOTECHNOLOGIST): Continue current regimen Assessment & Plan (11/01/2018 [...] potassium Assessment & Plan (09/11/2021 11:26 PM SENIOR CYTOTECHNOLOGIST): Bp is stable/in acceptable range for any co-morbidities. Encouraged to limit sodium intake and exercise for weight control. Currently stable without medication Assessment & Plan (05/29/2021 8:19 PM SENIOR CYTOTECHNOLOGIST): Bp is stable/in acceptable range for any co-morbidities. Encouraged to limit sodium intake and exercise for weight control. Continue Lasix is helping with the swelling and addition. Blood pressure stable Assessment & Plan (05/24/2021 10:38 AM SENIOR CYTOTECHNOLOGIST): Continue Lasix potassium Assessment & Plan (12/24/2020 9:05 AM CDT): Bp is stable/in acceptable range for any co-morbidities. Encouraged to limit sodium intake and exercise for weight control. Assessment & Plan (08/31/2020 9:32 AM SENIOR CYTOTECHNOLOGIST): Bp is stable/in acceptable range for any co-morbidities. Encouraged to limit sodium intake and exercise for weight control. Stable with laxis currently Assessment & Plan (02/18/2020 9:44 PM CDT): Bp is stable/in acceptable range for any co-morbidities. Encouraged to limit sodium intake and exercise for weight control. Assessment & Plan (08/13/2019 8:57 AM SENIOR CYTOTECHNOLOGIST): Bp is stable/in acceptable range for any [...] difficulty pulling them. Recommend finding some on to-BBB that fit her calf that she can zip on and off. Showed them to her on to-BBB and where to order them. She states she will try to get them. Assessment & Plan (05/31/2021 9:16 PM SENIOR CYTOTECHNOLOGIST): Improving slowly. May have been due to the Relafen. She is on 60 of Lasix with potassium 10 mEq daily. Continue with current plan. Keep legs elevated. Utilize compressi to improve cleared. on hose. Call if symptoms worsen or do not continue to improve. Assessment & Plan (05/29/2021 8:23 PM SENIOR CYTOTECHNOLOGIST): Persistent lower extremity edema that has improved [...] CMP. Assessment & Plan (05/24/2021 10:39 AM SENIOR CYTOTECHNOLOGIST): Patient that her swelling was improving since discharge for over the last day or so it seems to be increasing. Will increase the Lasix to 40mg Start K 10meq daily Recheck labs in 5 days Assessment & Plan (08/31/2020 9:33 AM SENIOR CYTOTECHNOLOGIST): Continue lasix Palpitations 12/08/2015 12/30/2020 Overview (10/09/2016): Palpitations Other abnormal glucose 11/11/201508/31 Asthma 10/14/2015 12/24/2020 Assessment & Plan (08/13/2019 8:49 AM SENIOR CYTOTECHNOLOGIST): Continue with current regimen and with Pulmonary [...] noted. Assessment & Plan (08/23/2024 10:16 AM SENIOR CYTOTECHNOLOGIST): 02/2021 XR L knee with mild to moderate OA, now s/p B TKA. Following with ortho as planned. Assessment & Plan (07/30/2024 11:23 AM SENIOR CYTOTECHNOLOGIST): 02/2021 XR L knee with mild to [...] March. Assessment & Plan (09/01/2023 3:42 PM SENIOR CYTOTECHNOLOGIST): 02/2021 XR L knee with mild to moderate OA, R knee negative. Had injections with ortho without benefit, now s/p L TKA. Assessment & Plan (06/30/2023 12:46 PM SENIOR CYTOTECHNOLOGIST): 02/2021 XR L knee with mild to [...] g/d. Assessment & Plan (07/15/2022 1:41 PM SENIOR CYTOTECHNOLOGIST): 02/2021 XR L knee with mild to moderate OA, R knee negative. Had injections with ortho with benefit. Unable to afford PT. Can continue Tylenol Arthritis, not to exceed 4 g/d. Assessment & Plan (06/03/2022 9:58 AM SENIOR CYTOTECHNOLOGIST): 02/2021 XR L knee with mild to [...] evaluation. Assessment & Plan (09/03/2021 11:27 AM SENIOR CYTOTECHNOLOGIST): XR L knee with mild to moderate [...] able. Assessment & Plan (06/04/2021 10:27 AM SENIOR CYTOTECHNOLOGIST): XR L knee with mild to moderate [...] above. Assessment & Plan (09/03/2020 12:23 PM SENIOR CYTOTECHNOLOGIST): 10/27/2017 XR L knee: mild tricompartmental OA. Will continue meloxicam as above. Assessment & Plan (07/09/2020 12:24 PM SENIOR CYTOTECHNOLOGIST): 10/27/2017 XR L knee: mild tricompartmental OA. Will continue meloxicam as above. In the future may consider trial of PT. Encounters Date Type Department Care Team Description 10/12/2024 Results Follow-Up [address] [place] [phone] Alee Elizondo PA 10/10/2024 7:30 AM CDT Office Visit [address] [place] [phone] Alee Elizondo PA Annual physical exam (Primary Dx); 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); Age-related osteoporosis without current pathological fracture; OWEN on CPAP; Moderate episode of recurrent major depressive disorder (HCC); Mixed hyperlipidemia; Pre-diabetes; Gastroesophageal reflux disease without esophagitis; Pelvic lipomatosis; BMI 35.0-35.9,adult; Morbid obesity (HCC) 10/10/[address] [place] [phone] Alee Elizondo PA Medication Request 10/07/2024 Orders Only [facility] Health Information Management [address] [place] [phone] Alee Elizondo PA 10/04/2024 Results Follow-Up [address] [place] [phone] Alee Elizondo PA 10/04/2024 Orders Only [address] [place] [phone] Tania Michael MD 10/03/[address] [place] [phone] Alee Elizondo PA 09/26/2024 Orders Only [address] [place] [phone] Alee Elizondo PA Breast cancer screening by mammogram (Primary Dx) 09/25/2024 11:00 AM CDT Office Visit [facility] Care at [address] [phone] Jessica Collins NP Influenza A (Primary Dx); Acute cough 09/25/2024 Results Follow-Up [facility] [address] [place] [phone] Alee Elizondo PA 09/20/2024 8:00 AM CDT Office Visit [facility] Cardiology [address] [place] [phone] Devika Marin MD Venous insufficiency (chronic) (peripheral) (Primary Dx); Mixed hyperlipidemia 09/20/2024 Telephone [facility] [address] [place] [phone] Michael Motta MD med clarification 09/14/[address] [phone] Codi Branham higinio 09/13/2024 2:45 PM CDT Office Visit [facility] [address] [place] [phone] Michael Motta MD Chronic pain of right knee (Primary Dx); History of total knee arthroplasty, right 09/13/2024 1:44 PM CDT - 09/13/2024 11:59 PM CDT Hospital Encounter [facility] [address] [place] [phone] Chronic pain of right knee Discharge Disposition: Discharge to home or self care 09/04/2024 Results Follow-Up [facility] [address] [place] [phone] Alee Elizondo PA 08/31/2024 Telephone [facility] [address] [place] [address] [address] [place] [phone] Alee Elizondo PA Medical Question/Miscellaneou s 08/31/2024 Orders Only [address] [phone] ProviderTania MD 08/29/2024 Nurse Triage [address] [place] [phone] Alee Elizondo PA 08/29/[address] [phone] Shailesh Dunn MD Med Refill (Ropinirol HCL 0.5MG tab) 08/24/2024 Results Follow-Up [facility] [address] [place] [phone] Sangita Farrar PA 08/23/2024 11:30 AM SENIOR CYTOTECHNOLOGIST Office Visit [facility] [address] [place] [phone] Sangita Farrar PA 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) (Primary Dx); Primary osteoarthritis involving multiple joints; Encounter for medication monitoring 08/23/2024 Orders Only [facility] Health Information Management [address] [place] [phone] Alee Elizondo PA 08/23/[address] [phone] Sangita Farrar PA Orencia Approved 08/21/[address] [phone] Codi Branham 08/02/2024 11:45 AM SENIOR CYTOTECHNOLOGIST Office Visit [address] [phone] Magaly Snider NP OWEN on CPAP (Primary Dx); OWEN (obstructive sleep apnea); PLMD (periodic limb movement disorder) 08/02/2024 Telephone [facility] [place] [address] [place] [phone] Shailesh Dunn MD Orders Only 08/01/2024 Orders Only [facility] [address] [place] [phone] Alee Elizondo PA Pre-diabetes (Primary Dx); Mixed hyperlipidemia; Fatigue, unspecified type 07/30/2024 9:00 AM SENIOR CYTOTECHNOLOGIST Office Visit [facility] [address] [place] [phone] Sangita Farrar PA 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) (Primary Dx); Primary osteoarthritis involving multiple joints; Encounter for medication monitoring 07/24/2024 2:00 PM SENIOR CYTOTECHNOLOGIST Office Visit [facility] [address] [place] [address] [address] [place] [phone] Michael Motta MD Status post total knee replacement using cement, right (Primary Dx) 07/24/2024 1:27 PM SENIOR CYTOTECHNOLOGIST - 07/24/2024 11:59 PM SENIOR CYTOTECHNOLOGIST Hospital Encounter [facility] Di[facility] Imaging [address] [place] [phone] Status post total knee replacement using cement, right Discharge Disposition: Discharge to home or self care 07/24/2024 Telephone [facility] [address] [place] [address] Alee Elizondo PA Referral Request (/) from Last 3 Months Immunizations Immunization Administration Dates Next Due COVID-19 mRNA ([employer]) 0.3 m L (30 mcg) vaccine (12 [...] the past 12 months has th e [employer], gas, oil, or water [employer] threatened to shut off services in your home? No 05/30/2024 Social Connection and Isolation Panel [NHANES] A nswer Date Recorded In a typical week, how many times do you talk on the phone with family, friends, or neighbors? Twice a week 05/30/20 How often do you get togethe r with friends or relatives? Twice a week 05/30/2024 How often do you attend [facility] or restoration services? 1 to 4 times per year 05/30/2024 Do you belong to any clubs o r organizations such as taoist groups, unions, fraternal or athletic groups, or [...] any time in the past 12 m [facility], were you homeless or living [...] file Legal Sex Female 8:04 PM SENIOR CYTOTECHNOLOGIST Gender Identity Female 02/15/2020 6:08 PM CDT [...] history exists Medical Devices Implanted Type Area Metalizer Field Operation Device Identifier Shelf Expiration Date Model / Serial / Lot [employer] Simplex P Radiopaque Full Dose Cement Bone Sterile 6191-1-010 - [id number] Implanted:Qty: 2 on 05/04/2023 by Michael Motta MD at [facility] Bone Cement Left: Knee [employer] 05/03/2025 6191-1-010 / 6191-1-001 / [id number] [employer] Simplex P Radiopaque Full Dose Cement Bone Sterile 6191-1-010 - [id number] Implanted:Qty: 2 on 05/30/2024 by Michael Motta MD at [facility] Bone Cement Right: Patella [employer] [id number] 05/03/2026 6191-1-010 / / [id number] [employer] Persona 14mm 30+ Mm Knee Tibia Taper Extension Stem [id number] - [id number] 4 - [id number] Implanted:Qty: 1 on 05/04/2023 by Michael Motta MD at [facility] Left: Knee [employer] [id number] 02/15/2033 [id number] / 69-3380-784- 14 / [id number] [employer] Persona Cemented Cruciate Retaining Knee Left 7 Narrow Component [id number] - F47-8255-015-6 1 - [id number] Implanted:Qty: 1 on 05/04/2023 by Michael Motta MD at [facility] Left: Knee [employer] [id number] 10/25/2032 [id number] / 66-4220-145- 01 / [id number] [employer] Baseplate Tibial Knee Cemented Left Fixed Stemmed Persona Size D Tivanium [id number] - [id number] 1 - [id number] Implanted:Qty: 1 on 05/04/2023 by Michael Motta MD at [facility] Left: Knee [employer] [id number] 09/11/2032 [id number] / 49-2462-047- 01 / [id number] [employer] Persona 11mm Knee Left 6-7 C-D Insert Articular Vivacit-E Sterile [id number] - F37-3245-022-0 1 - [id number] Implanted:Qty: 1 on 05/04/2023 by Michael Motta MD at [facility] Left: Knee [employer] [id number] 12/28/2025 [id number] / 61-3944-353- 11 / [id number] [employer] Persona 32mm Knee Component Patellar All Poly Latex Free 60-4837-934-32 - [id number] Implanted:Qty: 1 on 05/04/2023 by Michael Motta MD at [facility] [employer] 12/19/2027 [id number] / / [id number] [employer] Baseplate Tibial Knee Cemented Right Fixed Stemmed Persona Size C Tivanium [id number] - [id number] Implanted:Qty: 1 on 05/30/2024 by Michael Motta MD at [facility] Right: Knee [employer] [id number] 03/22/2033 [id number] / / [id number] [employer] Persona 29mm Knee Component Patellar All Poly Latex Free [id number] - [id number] Implanted:Qty: 1 on 05/30/2024 by Michael Motta MD at [facility] Right: Knee [employer] [id number] 12/18/2028 [id number] / / [id number] [employer] Persona 13mm Cruciate Retain Knee Right 6-7 Cd Insert Articular Latex Free [id number] - [id number] Implanted:Qty: 1 on 05/30/2024 by Michael Motta MD at [facility] Right: Patella [employer] [id number] 05/04/2025 [id number] / / [id number] [employer] Persona Cruciate Retaining Cemented Knee Right 7 Narrow Component [id number] - [id number] Implanted:Qty: 1 on 05/30/2024 by Michael Motta MD at [facility] Right: Knee [employer] [id number] 12/27/2033 [id number] / / [id number] [employer] Persona 14mm 30+ Mm Knee Tibia Taper Extension Stem [id number] - [id number] Implanted:Qty: 1 on 05/30/2024 by Michael Motta MD at [facility] Right: Knee [employer] [id number] 04/11/2034 [id number] / / [id number] Procedures Procedure Name Priority Date/Time Associated Diagnosis [...] Read Routine (OP Routine) 08/29/2024 12:23 PM SENIOR CYTOTECHNOLOGIST COMPREHENSIVE METABOLIC PANEL Routine 08/23/2024 2:11 PM SENIOR CYTOTECHNOLOGIST Encounter for medication monitoring CBC WITH AUTO DIFFERENTIAL Routine 08/23/2024 2:11 PM SENIOR CYTOTECHNOLOGIST Encounter for medication monitoring SCAN - LABS 08/23/2024 VITAMIN B12 Routine 08/02/2024 7:41 AM SENIOR CYTOTECHNOLOGIST Fatigue, unspecified type LIPID PANEL Routine 08/02/2024 7:41 AM SENIOR CYTOTECHNOLOGIST Mixed hyperlipidemia HEMOGLOBIN A1C Routine 08/02/2024 7:41 AM SENIOR CYTOTECHNOLOGIST Pre-diabetes COMPREHENSIVE METABOLIC PANEL Routine 08/02/2024 7:41 AM SENIOR CYTOTECHNOLOGIST Mixed hyperlipidemia CBC WITH AUTO DIFFERENTIAL Routine 08/02/2024 7:41 AM SENIOR CYTOTECHNOLOGIST Fatigue, unspecified type TSH Routine 08/02/2024 7:41 AM SENIOR CYTOTECHNOLOGIST Fatigue, unspecified type ERYTHROCYTE SEDIMENTATION RATE Routine 07/30/2024 2:36 PM SENIOR CYTOTECHNOLOGIST 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) CRP (ACUTE PHASE) Routine 07/30/2024 2:3 6 PM SENIOR CYTOTECHNOLOGIST 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) COMPREHENSIVE METABOLIC PANEL Routine 07/30/2024 2:36 PM SENIOR CYTOTECHNOLOGIST Encounter for medication monitoring CBC WITH AUTO DIFFERENTIAL Routine 07/30/2024 2:36 PM SENIOR CYTOTECHNOLOGIST Encounter for medication monitoring XR KNEE RIGHT 3 VIEWS Schedule Routine, Read Routine (OP Routine) 07/24/2024 1:35 PM SENIOR CYTOTECHNOLOGIST Status post total knee replacement using cement, right DEXA AXIAL SKELETON BONE DENSITY 1 OR MORE SITES Schedule Routine, Read Routine (OP Routine) 04/12/2023 8:14 AM CDT COLONOSCOPY Routine 07/27/2021 HEPATITIS C ANTIBODY Routine 06/04/2020 10:29 AM SENIOR CYTOTECHNOLOGIST Encounter for screening for other viral diseases [...] TEST ORDERABLES Final Result Performing Organization Address City/State/[facility] Co de Phone Number [facility] [address] [place] [address] * XR Knee Right 3 Views (09/13/2024 [...] John Sparrow M.D. RB T: Report ID: [id number] Reading Location: [id number] Procedure Note John Sparrow MD - 09/18/2024 [...] John Sparrow M.D. RB T: Report ID: [id number] Reading Location: [id number] Michael LUNSFORD XR PROCEDURES Final Re sult * (ABNORMAL) CT Abdomen Pelvis W Contrast (08/29/2024 12:23 PM SENIOR CYTOTECHNOLOGIST) Anatomical Region Laterality Modality Body N/A Computed Tomogra phy Historical Provider MD LUNSFORD CT PROCEDURES Edited Result - Final * CBC with auto differential (08/23/2024 2:11 PM SENIOR CYTOTECHNOLOGIST) WBC 4.8 3.8 - 10.8 Thousand/u L [...] [facility] Blood 08/23/2024 2:11 PM SENIOR CYTOTECHNOLOGIST 08/23/2024 2:11 PM SENIOR CYTOTECHNOLOGIST Sangita OSMAN LAB BLOOD ORDERABLES Vy suazo Result [facility] [address] [address] [address] * (ABNORMAL) Comprehensive metabolic panel (08/23/2024 2:11 PM SENIOR CYTOTECHNOLOGIST) Pathologist [facility] Glucose 188(H) 65 - 99 mg/dL [facility] [...] [facility] Blood 08/23/2024 2:11 PM SENIOR CYTOTECHNOLOGIST 08/23/2024 2:11 PM SENIOR CYTOTECHNOLOGIST us Sangita OSMAN LAB BLOOD ORDERABLES Vy l Result [facility] [address] [address] [place] [address] * SCAN - LABS (08/23/2024) us Alee OSMAN Final Resu lt * (ABNORMAL) CBC with auto differential (08/02/2024 7:41 AM SENIOR CYTOTECHNOLOGIST) [facility] WBC 4.0 3.8 - 10.8 [...] [facility] Blood 08/02/2024 7:41 AM SENIOR CYTOTECHNOLOGIST 08/02/2024 7:42 AM SENIOR CYTOTECHNOLOGIST Alee OSMAN LAB BLOOD ORDERABLES Final Result [facility] [address] [place] [address] * TSH (08/02/2024 7:41 AM SENIOR CYTOTECHNOLOGIST) Pathologist [facility] TSH 1.57 0.40 - 4.50 mIU/L [facility] Blood 08/02/2024 7:41 AM SENIOR CYTOTECHNOLOGIST 08/02/2024 7:42 AM SENIOR CYTOTECHNOLOGIST Alee OSMAN LAB BLOOD ORDERABLES Final Result Performing Organization Address [facility] Co de Phone Number [facility] [address] [place] [address] * Hemoglobin A1c (08/02/2024 7:41 AM SENIOR CYTOTECHNOLOGIST) [facility] Hgb A1C 5.4 <5.7 % of total Hgb [facility] Comment: For the purpose of screening for the presence of diabetes: <5.7% Consistent with the absence of diabetes 5.7-6.4% Consistent with increased risk for diabetes (prediabetes) > or =6.5% Consistent with diabetes This assay result is consistent with a decreased risk of diabetes. Currently, no consensus exists regarding use of hemoglobin A1c for diagnosis of diabetes in children. According to [place] Diabetes Association (ADA) guidelines, hemoglobin A1c <7.0% represents optimal control in non- diabetic patients. Different metrics may apply to specific patient populations. Standards of Medical Care in Diabetes(ADA). Blood 08/02/2024 7:41 AM SENIOR CYTOTECHNOLOGIST 08/02/2024 7:42 AM SENIOR CYTOTECHNOLOGIST Alee OSMAN LAB BLOOD ORDERABLES Final Result Performing Organization Address City/[facility]/ZIP Co de Phone Number [facility] [address] Administration DEANDRE Martinez [address] * Vitamin B12 (08/02/2024 7:41 AM SENIOR CYTOTECHNOLOGIST) Pathologist [facility] Vitamin B12 349 200 - 1,100 pg/mL [...] will have symptoms. Blood 08/02/2024 7:41 AM SENIOR CYTOTECHNOLOGIST 08/02/2024 7:42 AM SENIOR CYTOTECHNOLOGIST Alee OSMAN LAB BLOOD ORDERABLES Final Result [facility] [address] [address] [place] [address] * Lipid panel (08/02/2024 7:41 AM SENIOR CYTOTECHNOLOGIST) Pathologist [facility] Cholesterol 127 <200 mg/dL [facility] [...] LDL-C. Barry SS et al. ELAINE. 2013;310(19): 7747-6453 (http://education.DiscGenics.Spectral Diagnostics/faq/UHE087) Chol/HDL ratio 1.7 <5.0 (calc) [facility] Non-HDL, (LDL+VLDL) 52 <130 mg/dL (calc) [facility] Comment: For patients with diabetes plus 1 major ASCVD risk factor, treating to a non-HDL-C goal of <100 mg/dL (LDL-C of <70 mg/dL) is considered a therapeutic option. Blood 08/02/2024 7:41 AM SENIOR CYTOTECHNOLOGIST 08/02/2024 7:42 AM SENIOR CYTOTECHNOLOGIST Alee OSMAN LAB BLOOD ORDERABLES Final Result [facility] [address] [address] [address] * Comprehensive metabolic panel (08/02/2024 7:41 AM SENIOR CYTOTECHNOLOGIST) Glucose 99 65 - 99 mg/dL [facility] [...] [facility] Blood 08/02/2024 7:41 AM SENIOR CYTOTECHNOLOGIST 08/02/2024 7:42 AM SENIOR CYTOTECHNOLOGIST us Alee OSMAN LAB BLOOD ORDERABLES Final Result [facility] [address] [address] [address] * CBC with auto differential (07/30/2024 2:36 PM SENIOR CYTOTECHNOLOGIST) WBC 6.4 3.8 - 10.8 Thousand/u L [...] [facility] Blood 07/30/2024 2:36 PM SENIOR CYTOTECHNOLOGIST 07/30/2024 2:36 PM SENIOR CYTOTECHNOLOGIST Sangita Magali OSMAN LAB BLOOD ORDERABLES Vy l Result Performing Organization Address [facility] de Phone Number [facility] [address] [place] [address] * Erythrocyte sedimentation rate (07/30/2024 2:36 PM SENIOR CYTOTECHNOLOGIST) Erythrocyte sedimentation rate 11 < OR = 30 mm/h [facility] Blood 07/30/2024 2:36 PM SENIOR CYTOTECHNOLOGIST 07/30/2024 2:36 PM SENIOR CYTOTECHNOLOGIST Sangita Magali OSMAN LAB BLOOD ORDERABLES Vy l Result Performing Organization Address [facility] Phone Number [facility] [address] [place] [address] * CRP (acute phase) (07/30/2024 2:36 PM SENIOR CYTOTECHNOLOGIST) C-RP <3.0 <8.0 mg/L [facility] Blood 07/30/2024 2:36 PM SENIOR CYTOTECHNOLOGIST 07/30/2024 2:36 PM SENIOR CYTOTECHNOLOGIST Result [facility] Sangita Magali OSMAN LAB BLOOD ORDERABLES Vy l Result Performing Organization Address [facility] Phone Number [facility] [address] [place] [address] * (ABNORMAL) Comprehensive metabolic panel (07/30/2024 2:36 PM SENIOR CYTOTECHNOLOGIST) Glucose 115(H) 65 - 99 mg/dL [facility] [...] [facility] Blood 07/30/2024 2:36 PM SENIOR CYTOTECHNOLOGIST 07/30/2024 2:36 PM SENIOR CYTOTECHNOLOGIST Sangita OSMAN LAB BLOOD ORDERABLES Vy l Result [facility] [address] [place] [address] * XR Knee Right 3 Views (07/24/2024 1:35 PM SENIOR CYTOTECHNOLOGIST) Anatomical Region Laterality Modality Lower Extremities, Knee Right Computed Radiography 07/25/2024 7:16 AM SENIOR CYTOTECHNOLOGIST Narrative 07/25/2024 7:18 AM SENIOR CYTOTECHNOLOGIST EXAM DESCRIPTION: XR KNEE RIGHT 3 VIEWS [...] signed by Elton CABA T: Report ID: [id number] Reading Location: [id number] Procedure Note Elton Jonas MD - 07/25/2024 [...] Elton Jonas M.D. KR T: Report ID: [id number] Reading Location: [place] [address] Michael Motta MD IMG XR PROCEDURES Final [...] * Hepatitis C antibody (06/04/2020 10:29 AM SENIOR CYTOTECHNOLOGIST) Hep C Ab NON-REACTI VE NON-REACT ALEXYS [facility] SIGNAL TO CUT-OFF 0.02 <1.00 [facility] Comment: HCV antibody was non-reactive. There is no laboratory evidence of HCV infection. In most cases, no further action is required. However, if recent HCV exposure is suspected, a test for HCV RNA (test code 87229) is suggested. For additional information please refer to http://education.Glu Mobile/faq/SBQ51k6 (This link is being provided for informational/ educational purposes only.) Blood specimen (specimen) 06/04/2020 10:29 AM SENIOR CYTOTECHNOLOGIST 06/04/2020 10:30 AM SENIOR CYTOTECHNOLOGIST Sangita OSMAN LAB MICROBIOLOGY - GENERA L ORDERABLES Final Result [facility] [address] [place] [address] from Last 3 Months or Most Recently Relevant to Health Maintenance Insurance [facility] MEDICARE ADVANTAGE Advance Directives For more information, please contact: [phone] Documents on File Type Date Recorded Patient Swine Genetics Researcher Expl anation ADVANCE DIRECTIVE 05/17/2024 2:13 PM Yonis r of Contract Project Manager-Medical * Full Code (Latest Code Status on File) Date Activated Date Inactivated Comments 05/30/2024 12:38 PM 06/05/2024 6:31 PM * Full Code Date Activated Date Inactivated Comments 05/04/2023 2:33 PM 05/07/2023 3:07 AM * Full Code Date Activated Date Inactivated Comments 03/22/2021 4:39 PM 03/25/2021 6:17 PM Care Teams Disease Intervention Specialist Relationship Specialty Start Date End Date Alee Elizondo PA [address] [place] [address] PCP - General Internal Medicine 07/05/23 Sharan Linton MD Referring Physician Gastroenterology 10/31/18 Martha Starks MD Consulting Physician Cardiology 12/24/20 Shama Hines MD [address] [facility] [address] Consulting Physician Pain Management 01/19/21 Artis Grewal MD [address] [place], [place] [address] Consulting Physician Rheumatology 01/30/21 Amy Mayes NP [address] [address] Nurse Practitioner Cardiovascular Disease 04/20/24 Shailesh Dunn MD [address] [facility] [address] [address] Consulting Physician Pulmonary Disease 04/20/24 Sangita Farrar PA [address] [place], [place] [address] Physician Manager Environmental Services Rheumatology 05/15/24
--- OUTSIDE RECORDS SUMMARY | 2024-10-13 15:25 | XMS_ITS | Encounter Summary ---
Author Organization [facility] Care Team Providers Care Edge Trimming 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 Name Role Phone Alee Elizondo Primary Care Provider + [phone] Sharan Linton MD Unavailable [phone] Taisha oGmez MD Unavailable [phone] Parag Soto MD Unavailable [phone] RaziaMartha singh MD Unavailable [phone] Puneet Uribe MD Unavailable [phone] Shama Hines MD Unavailable Artis Grewal MD Unavailable [phone] Harrison Pena RN Unavailable [phone] Nafisa Gregg RN Unavailable [phone] Tho Kelsey MD Primary Care Provider [phone] Alee Elizondo Primary Care Provider + [phone] Amy Mayes NP Unavailable [phone] Shailesh Dunn MD Unavailable [phone] Sangita Farrar Unavailable [phone] Encounter Details Date Type Department Care Team (Latest Contact Info) Description 01/08/2017 Orders Only [facility] CLINCONV Provider, MD Tania [address] [place] [address] Social History Tobacco Use Types Packs/Day Years Used Date Smoking Tobacco: Never Alcohol Use Standard Drinks/Week Comments No 0 (1 standard drink = 0.6 oz pur e alcohol) Comments Unknown Sex and Gender Information Value Date Recorded Sex Assigned at Not on file Legal Sex Female 8:04 PM BUNDLE HELPER Gender Identity Female 02/15/2020 6:08 PM [...] COVID: Suspected 08/13/2021 08/14/2021 08/14/2021 3:06 AM BUNDLE HELPER COVID: Suspected 08/14/2021 08/14/2021 08/15/2021 3:05 AM BUNDLE HELPER COVID: Suspected 08/14/2021 08/14/2021 08/15/2021 6:25 AM BUNDLE HELPER COVID: Suspected 06/02/2023 06/02/2023 06/02/2023 7:25 PM BUNDLE HELPER COVID: Suspected 07/26/2023 07/26/2023 07/26/2023 3:10 PM BUNDLE HELPER COVID: Suspected 09/25/2024 09/25/2024 09/25/2024 11:03 AM CDT Influenza, adult 09/25/2024 09/25/2024 10/02/2024 3:05 AM CDT documented as of this encounter Care Teams Edge Trimming 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 Relationship Specialty Start Date End Date Alee Elizondo PA [address] [facility] [address] [place] [address] PCP - General Internal Medicine 02/01/17 06/29/23 Tho Kelsey MD [address] [place] [address] [address] [facility] [address] [place] [address] PCP - General Family Medicine 06/30/23 07/04/23 Alee Elizondo PA [address] [place] [address] PCP - General Internal Medicine 07/05/23 Sharan Linton MD [address] [place] [address] Referring Physician Gastroenterology 10/31/18 Taisha Gomez MD [address] [place] [address] Referring Physician Pulmonary Disease 10/31/18 12/23/20 Parag Soto MD [address] [place] [address] Referring Physician Rheumatology 10/31/18 12/23/20 Martha Starks MD [address] [place] [address] Consulting Physician Cardiology 12/24/20 Puneet Uribe MD [address] [facility] [address] [place] [address] Consulting Physician Rheumatology 12/24/20 01/29/21 Shama Hines MD [address] [facility], [facility] [address] [place] [address] Consulting Physician Pain Management 01/19/21 Artis Grewal MD [address] [place] [address] Consulting Physician Rheumatology 01/30/21 Harrison Pena, JULIUS [address] [place] [address] Director Of Physician Practices 05/30/23 09/04/23 Nafisa Gregg, JULIUS [address] [place] [address] [address] [place] [address] Director Of Physician Practices 06/06/23 06/12/23 Amy Mayes NP [address] [address] Nurse Practitioner Cardiovascular Disease 04/20/24 Shailesh Dunn MD [address] [facility] [address] [place] [address] Consulting Physician Pulmonary Disease 04/20/24 Sangita Farrar PA [address] [place] [address] Physician Airplane Coverer Rheumatology 05/15/24 documented as of this encounter
--- OUTSIDE RECORDS SUMMARY | 2024-10-13 15:25 | XMS_ITS | Encounter Summary ---
Author Organization [facility] Healthcare Address [address] [place] [address] Care Team Providers Care Extension Service Supervisor Name Role Phone Sharan Linton MD Unavailable Martha Starks MD Unavailable [phone] Shama Hines MD Unavailable Artis Grewal MD Unavailable [phone] Alee Elizondo Primary Care Provider [phone] Amy Mayes NP Unavailable [phone] Shailesh Dunn MD Unavailable [phone] Sangita Farrar Unavailable [phone] Encounter Details Date Type Department Care Team (Late st Contact Info) Description 03/02/[address] [facility] Medical Group Family Medicine [address] [place] [address] Alee Elizondo PA [address] [place] [address] Social History Tobacco Use Types Packs/Day Years Used Date Smoking Tobacco: Never Smokeless Tobacco: Never Comments:Never used Alcohol Use Standard Drinks/Week Comments No 0 (1 standard drink = 0.6 oz pur e alcohol) [facility] Utilities Answer Date Recorded In the past 12 months has [employer], gas, oil, or water company threatened to [...] often do you attend chur ch or anglican services? More than 4 times per year [...] file Legal Sex Female 8:04 PM SENIOR [employer] NET DEVELOPER Gender Identity Female 02/15/2020 6:08 PM [...] documented as of this encounter Care Teams Extension Service Supervisor Relationship Specialty Start Date End Date Alee Elizondo PA [address] [facility] [address] [place] [address] PCP - General Internal Medicine 07/05/23 Sharan Linton MD Referring Physician Gastroenterology 10/31/18 Martha Starks MD Consulting Physician Cardiology 12/24/20 Shama Hines MD [address] [address] Consulting Physician Pain Management 01/19/21 Artis Grewal MD [address] [place] [address] Consulting Physician Rheumatology 01/30/21 Amy Mayes NP [address] [address] Nurse Practitioner Cardiovascular Disease 04/20/24 Shailesh Dunn MD [address] [address] Consulting Physician Pulmonary Disease 04/20/24 Sangita Farrar PA [address] [place] [address] Physician Hot Dipper Rheumatology 05/15/24 documented as of this encounter
--- OUTSIDE RECORDS SUMMARY | 2024-10-13 15:25 | XMS_ITS | Encounter Summary ---
Author Organization [facility] Healthcare Address [address] [place] [address] Care Team Providers Care Supervisor Drying And Winding Name Role Phone Sharan Linton MD Unavailable [phone] Martha Starks MD Unavailable [phone] Shama Hines MD Unavailable Artis Grewal MD Unavailable [phone] Alee Elizondo Primary Care Provider +[phone] Amy Mayes NP Unavailable +[phone] Shailesh Dunn MD Unavailable +[phone] Sangita Farrar Unavailable +[phone] Encounter Details Date Type Department Care Team (Late st Contact Info) Description 12/08/[address] [facility] Information Management [address] [place] [address] Scanning, Provider Social History Tobacco Use Types Packs/Day Years Used Date Smoking Tobacco: Never Smokeless Tobacco: Never Comments:Never used Alcohol Use Standard Drinks/Week Comments No 0 (1 standard drink = 0.6 oz pur e alcohol) [facility] Utilities Answer Date Recorded In the past [...] you attend chur ch or adventist services? 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 Gender Identity Female 02/15/2020 6:08 PM CDT [...] documented as of this encounter Care Teams Supervisor Drying And Winding Relationship Specialty Start Date End Date Alee Elizondo PA [address] [address] PCP - General Internal Medicine 07/05/23 Sharan Linton MD Referring Physician Gastroenterology 10/31/18 Martha Starks MD Consulting Physician Cardiology 12/24/20 Shama Hines MD 4700 [facility], [address] [address] Consulting Physician Pain Management 01/19/21 Artis Grewal MD [address] [place] [address] Consulting Physician Rheumatology 01/30/21 Amy Mayes NP [address] [address] Nurse Practitioner Cardiovascular Disease 04/20/24 Shailesh Dunn MD [address] [address] Consulting Physician Pulmonary Disease 04/20/24 Sangita Farrar PA [address] [place] [address] Physician Electrical Logging Engineer Rheumatology 05/15/24 documented as of this encounter
--- OUTSIDE RECORDS SUMMARY | 2024-10-13 15:25 | XMS_ITS | Encounter Summary ---
Author Organization [facility] Facility Care Team Providers Care Public Information Coordinator Name Role Phone Alee Elizondo Primary Care Provider + [phone] Sharan Linton MD Unavailable +[phone] Taisha Gomez MD Unavailable [phone] Parag Soto MD Unavailable [phone] RaziaMartha singh MD Unavailable [phone] Puneet Uribe MD Unavailable +[phone] Shama Hines MD Unavailable Artis Grewal MD Unavailable [phone] Harrison Pena RN Unavailable +[phone] Nafisa Gregg RN Unavailable +[phone] Tho Kelsey MD Primary Care Provider [phone] Alee Elizondo Primary Care Provider + [phone] Amy Mayes NP Unavailable +[phone] Shailesh Dunn MD Unavailable +[phone] Sangita Farrar Unavailable +[phone] Encounter Details Date Type Department Care Team (Latest Contact Info) Description 10/15/2016 Orders Only [facility] Provider, MD Tania [address] [place] [address] Social History Tobacco Use Types Packs/Day Years Used Date Smoking Tobacco: Never Alcohol Use Standard Drinks/Week Comments No 0 (1 standard drink = 0.6 oz pur e alcohol) Comments Unknown Sex and Gender Information Value Date Recorded Sex Assigned at Not on file Legal Sex Female 8:04 PM MINE SAFETY MANAGER Gender Identity Female 02/15/2020 6:08 PM [...] COVID: Suspected 08/13/2021 08/14/2021 08/14/2021 3:06 AM MINE SAFETY MANAGER COVID: Suspected 08/14/2021 08/14/2021 08/15/2021 3:05 AM MINE SAFETY MANAGER COVID: Suspected 08/14/2021 08/14/2021 08/15/2021 6:25 AM MINE SAFETY MANAGER COVID: Suspected 06/02/2023 06/02/2023 06/02/2023 7:25 PM MINE SAFETY MANAGER COVID: Suspected 07/26/2023 07/26/2023 07/26/2023 3:10 PM MINE SAFETY MANAGER COVID: Suspected 09/25/2024 09/25/2024 09/25/2024 11:03 AM CDT Influenza, adult 09/25/2024 09/25/2024 10/02/2024 3:05 AM CDT documented as of this encounter Care Teams Public Information Coordinator Relationship Specialty Start Date End Date Alee Elizondo PA 10[address] [facility] [address] [place] [address] PCP - General Internal Medicine 02/01/17 06/29/23 Tho Kelsey MD [address] [place] [address] DR [facility] [address] [place] [address] PCP - General Family Medicine 06/30/23 07/04/23 Alee Elizondo PA [address] [place] [address] [place] [address] PCP - General Internal Medicine 07/05/23 Sharan Linton MD [address] [place] [address] [place] [address] Referring Physician Gastroenterology 10/31/18 Taisha Gomez MD [address] [place] [address] [place] [address] Referring Physician Pulmonary Disease 10/31/18 12/23/20 Parag Soto MD [address] [place] [address] [place] [address] Referring Physician Rheumatology 10/31/18 12/23/20 Martha Starks MD [address] [place] [address] [place] [address] Consulting Physician Cardiology 12/24/20 Puneet Uribe MD [address] [facility] [address] [place] [address] Consulting Physician Rheumatology 12/24/20 01/29/21 Shama Hines MD 4700 [facility], [facility] [address] [place] [address] Consulting Physician Pain Management 01/19/21 Artis Grewal MD [address] [place] [address] Consulting Physician Rheumatology 01/30/21 Harrison Pena, JULIUS [address] [place] [address] Research Engineer 05/30/23 09/04/23 Nafisa Gregg, JULIUS [address] [place] [address] [place] [address] [place] [address] Research Engineer 06/06/23 06/12/23 Amy Mayes NP [address] [address] Nurse Practitioner Cardiovascular Disease 04/20/24 Shailesh Dunn MD 4600 [facility] [address] [place] [address] Consulting Physician Pulmonary Disease 04/20/24 Sangita Farrar PA [address] [place] [address] Physician Skein Bander Rheumatology 05/15/24 documented as of this encounter
--- OUTSIDE RECORDS SUMMARY | 2024-10-13 15:25 | XMS_ITS | Encounter Summary ---
Author Organization [facility] Facility Care Team Providers Care Billing Analyst Name Role Phone Alee Elizondo Primary Care Provider + [phone] Sharan Linton MD Unavailable [phone] Taisha Gomez MD Unavailable [phone] Parag Soto MD Unavailable [phone] RaziaMartha singh MD Unavailable [phone] Puneet Uribe MD Unavailable +[phone] Shama Hines MD Unavailable Artis Grewal MD Unavailable [phone] Harrison Pena RN Unavailable +[phone] Nafisa Gregg RN Unavailable +[phone] Tho Kelsey MD Primary Care Provider [phone] Alee Elizondo Primary Care Provider + [phone] Amy Mayes NP Unavailable +[phone] Shailesh Dunn MD Unavailable +[phone] Sangita Farrar Unavailable +[phone] Encounter Details Date Type Department Care Team (Latest Contact Info) Description 08/10/2017 Orders Only [facility] Provider, MD Tania [address] [place] [address] Social History Tobacco Use Types Packs/Day Years Used Date Smoking Tobacco: Never Smokeless Tobacco: Never Alcohol Use Standard Drinks/Week Comments No 0 (1 standard drink = 0.6 oz pur e alcohol) Comments Unknown Sex and Gender Information Value Date Recorded Sex Assigned at Not on file Legal Sex Female 8:04 PM VICE PRESIDENT OF CUSTOMER SERVICE Gender Identity Female 02/15/2020 6:08 PM CDT Sexual Orientation Not on file documented as of this encounter Plan of Treatment Not on file documented as of this encounter Procedures Procedure Name Priority Date/Time Associated Diagnosis Comments CARDIOLOGY REPORT 08/10/2017 12: 00 AM VICE PRESIDENT OF CUSTOMER SERVICE documented in this encounter Results * CARDIOLOGY REPORT (08/10/2017 12:00 AM VICE PRESIDENT OF CUSTOMER SERVICE) Anatomical Region Laterality Modality Other Narrative 08/10/2017 12:00 AM VICE PRESIDENT OF CUSTOMER SERVICE Ordered by an unspecified provider. Historical Provider [facility] LEANDRA LANDRUM Final Result documented in this encounter Visit Diagnoses Not on filedocumented in this encounter Additional Health Concerns Infection Onset Date Last Indicated Resolved Time COVID: Suspected 08/13/2021 08/14/2021 08/14/2021 3:06 AM VICE PRESIDENT OF CUSTOMER SERVICE COVID: Suspected 08/14/2021 08/14/2021 08/15/2021 3:05 AM VICE PRESIDENT OF CUSTOMER SERVICE COVID: Suspected 08/14/2021 08/14/2021 08/15/2021 6:25 AM VICE PRESIDENT OF CUSTOMER SERVICE COVID: Suspected 06/02/2023 06/02/2023 06/02/2023 7:25 PM VICE PRESIDENT OF CUSTOMER SERVICE COVID: Suspected 07/26/2023 07/26/2023 07/26/2023 3:10 PM VICE PRESIDENT OF CUSTOMER SERVICE COVID: Suspected 09/25/2024 09/25/2024 09/25/2024 11:03 AM CDT Influenza, adult 09/25/2024 09/25/2024 10/02/2024 3:05 AM CDT documented as of this encounter Care Teams Billing Analyst Relationship Specialty Start Date End Date Alee Elizondo PA 1095 [facility] [address] [place] [address] PCP - General Internal Medicine 02/01/17 06/29/23 Tho Kelsey MD [address] [place] [address] DR [facility] [address] [place] [address] PCP - General Family Medicine 06/30/23 07/04/23 Alee Elizondo PA [address] [place] [address] [place] [address] PCP - General Internal Medicine 07/05/23 Sharan Linton MD [address] [place] [address] [place], [place] [address] Referring Physician Gastroenterology 10/31/18 Taisha Gomez MD [address] [facility] [address] [place], [place] [id number] Referring Physician Pulmonary Disease 10/31/18 12/23/20 Parag Soto MD [address] [facility] [address] [place] [address] Referring Physician Rheumatology 10/31/18 12/23/20 Martha Starks MD [address] [place] [address] [place] [address] Consulting Physician Cardiology 12/24/20 Puneet Uribe MD [address] [facility] [address] [place] [address] Consulting Physician Rheumatology 12/24/20 01/29/21 Shama Hines MD 4700 [facility], [facility] [address] [place] [address] Consulting Physician Pain Management 01/19/21 Artis Grewal MD [address] [place] [address] Consulting Physician Rheumatology 01/30/21 Harrison Pean, JULIUS [address] [place] [address] Analyst Programmer 05/30/23 09/04/23 Nafisa Gregg, JULIUS [address] [place] [address] [facility] [address] [place], [place] [address] Analyst Programmer 06/06/23 06/12/23 Amy Mayes NP [address] [facility] [address] [place], [place] [address] Nurse Practitioner Cardiovascular Disease 04/20/24 Shailesh Dunn MD 4600 [facility] [address] [place] [address] Consulting Physician Pulmonary Disease 04/20/24 Sangita Farrar PA [address] [place] [address] Physician Gutter Hanger Rheumatology 05/15/24 documented as of this encounter
--- OUTSIDE RECORDS SUMMARY | 2024-10-13 15:25 | XMS_ITS | Encounter Summary ---
Author Organization [facility] Facility Care Team Providers Care Director Of Student Financial Aid Name Role Phone Alee Elizondo Primary Care Provider + [phone] Sharan Linton MD Unavailable [phone] Taisha Gomez MD Unavailable [phone] Parag Soto MD Unavailable [phone] [facility] MD Unavailable +[phone] Puneet Uribe MD Unavailable +[phone] Shama Hines MD Unavailable Artis Grewal MD Unavailable [phone] Harrison Pena RN Unavailable +[phone] Nafisa Gregg RN Unavailable +[phone] Tho Kelsey MD Primary Care Provider +[phone] Alee Elizondo Primary Care Provider + [phone] Amy Mayes NP Unavailable +[phone] Shailesh Dunn MD Unavailable +[phone] Sangita Farrar Unavailable +[phone] Encounter Details Date Type Department Care Team (Latest Contact Info) Description 09/14/2016 Orders Only [facility]IN[facility] Provider, MD Tania [address] [place] [address] Social History Tobacco Use Types Packs/Day Years Used Date Smoking Tobacco: Never Alcohol Use Standard Drinks/Week Comments No 0 (1 standard drink = 0.6 oz pur e alcohol) Comments Unknown Sex and Gender Information Value Date Recorded Sex Assigned at Not on file Legal Sex Female 8:04 PM HOTEL SALES MANAGER Gender Identity Female 02/15/2020 6:08 PM CDT Sexual Orientation Not on file documented as of this encounter Plan of Treatment Not on file documented as of this encounter Procedures Procedure Name Priority Date/Time Associated Diagnosis Comments PROCEDURE - RESULT 09/09/2016 12 :00 AM HOTEL SALES MANAGER documented in this encounter Results * PROCEDURE - RESULT (09/09/2016 12:00 AM HOTEL SALES MANAGER) Narrative 09/09/2016 12:00 AM HOTEL SALES MANAGER Ordered by an unspecified provider. Historical Provider MD Final Res ult documented in this encounter Visit Diagnoses Not on filedocumented in this encounter Additional Health Concerns Infection Onset Date Last Indicated Resolved Time COVID: Suspected 08/13/2021 08/14/2021 08/14/2021 3:06 AM HOTEL SALES MANAGER COVID: Suspected 08/14/2021 08/14/2021 08/15/2021 3:05 AM HOTEL SALES MANAGER COVID: Suspected 08/14/2021 08/14/2021 08/15/2021 6:25 AM HOTEL SALES MANAGER COVID: Suspected 06/02/2023 06/02/2023 06/02/2023 7:25 PM HOTEL SALES MANAGER COVID: Suspected 07/26/2023 07/26/2023 07/26/2023 3:10 PM HOTEL SALES MANAGER COVID: Suspected 09/25/2024 09/25/2024 09/25/2024 11:03 AM CDT Influenza, adult 09/25/2024 09/25/2024 10/02/2024 3:05 AM CDT documented as of this encounter Care Teams Director Of Student Financial Aid Relationship Specialty Start Date End Date Alee Elizondo PA 1095 [facility] [address] [place] [address] PCP - General Internal Medicine 02/01/17 06/29/23 Tho Kelsey MD [address] [place] [address] [address] [place] [address] [place] [address] PCP - General Family Medicine 06/30/23 07/04/23 Alee Elizondo PA [address] [place] [address] [place] [address] PCP - General Internal Medicine 07/05/23 Sharan Linton MD [address] [place] [address] [place] [address] Referring Physician Gastroenterology 10/31/18 Taisha Gomez MD [address] [place] [address] [place] [address] Referring Physician Pulmonary Disease 10/31/18 12/23/20 Parag Soto MD [address] [place] [address] [place] [address] Referring Physician Rheumatology 10/31/18 12/23/20 Martha Starks MD [address] [place] [address] [place] [address] Consulting Physician Cardiology 12/24/20 Puneet Uribe MD [address] [facility] [address] [place] [address] Consulting Physician Rheumatology 12/24/20 01/29/21 Shama Hines MD 4700 [facility], [place] [address] [place] [address] Consulting Physician Pain Management 01/19/21 Artis Grewal MD [address] [place] [address] Consulting Physician Rheumatology 01/30/21 Harrison Pena, JULIUS [address] [place] [address] Pig Casting 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 05/30/23 09/04/23 Nafisa Gregg, JULIUS [address] [place] [address] [facility] [address] [place] [address] Pig Casting 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 06/06/23 06/12/23 Amy Mayes NP [address] [facility] 102 [place] [address] Nurse Practitioner Cardiovascular Disease 04/20/24 Shailesh Dunn MD 4600 [facility] [address] [place] [address] Consulting Physician Pulmonary Disease 04/20/24 Sangita Farrar PA [address] [place] [address] Physician Cylinder Checker Rheumatology 05/15/24 documented as of this encounter
--- OUTSIDE RECORDS SUMMARY | 2024-10-13 15:25 | XMS_ITS | Referral Summary ---
Author Organization [facility] [address] Address [address] [place] [address] Care Team Providers Care Loader Demolder Name Role Phone Sharan Linton MD Unavailable [phone] Martha Starks MD Unavailable [phone] Shama Hines MD Unavailable Artis Grewal MD Unavailable [phone] Alee Elizondo Primary Care Provider + [phone] Amy Mayes NP Unavailable [phone] Shailesh Dunn MD Unavailable [phone] Sangita Farrar Unavailable [phone] Encounters Date Type Department Care Team Description 10/12/2024 Results Follow-Up [facility] [address] [place] [address] Road [address] [place] [address] Alee Elizondo PA 10/10/[address] [place] [address] Alee Elizondo PA Medication Request 10/10/2024 7:30 AM CDT Office Visit [address] [place] [address] Alee Elizondo PA Annual physical exam (Primary Dx); 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); Age-related osteoporosis without current pathological fracture; OWEN on CPAP; Moderate episode of recurrent major depressive disorder (HCC); Mixed hyperlipidemia; Pre-diabetes; Gastroesophageal reflux disease without esophagitis; Pelvic lipomatosis; BMI 35.0-35.9,adult; Morbid obesity (HCC) 10/07/2024 Orders Only [facility] Health Information Management [address] [place] [address] Alee Elizondo PA 10/04/2024 Results Follow-Up [facility] [address] [place] [address] [address] [place] [address] Alee Elizondo PA 10/04/2024 Orders Only [facility] [address] [place] [address] Road [address] [place] [address] ProviderTania MD 10/03/[address] [place] [address] Alee Elizondo PA 09/26/2024 Orders Only [address] [place] [address] Alee Elizondo PA Breast cancer screening by mammogram (Primary Dx) 09/25/2024 Results Follow-Up [address] [place] [phone] Alee Elizondo PA 09/25/2024 11:00 AM CDT Office Visit [facility] at [address] [address] Jessica Collins NP Influenza A (Primary Dx); Acute cough 09/20/2024 Telephone [facility] Orthopedics and Sports Medicine [address] [facility] [address] [place] [address] Michael Motta MD med clarification 09/20/2024 8:00 AM CDT Office Visit [facility] Cardiology [address] [address] [address] [place] [address] Devika Marin MD Venous insufficiency (chronic) (peripheral) (Primary Dx); Mixed hyperlipidemia 09/14/[address] [address] Codi Branham 09/13/2024 1:44 PM CDT - 09/13/2024 11:59 PM CDT Hospital Encounter [facility] Diag Imaging [address] [place] [address] Chronic pain of right knee Discharge Disposition: Discharge to home or self care 09/13/2024 2:45 PM CDT Office Visit [facility] Orthopedics and Sports Medicine [facility] [address] [place] [phone] Michael Motta MD Chronic pain of right knee (Primary Dx); History of total knee arthroplasty, right 09/04/2024 Results Follow-Up [address] [place] [address] Alee Elizondo PA 08/31/[address] [place] [address] Alee Elizondo PA Medical Question/Miscellaneou s 08/31/2024 Orders Only [address] [place] [address] ProviderTania MD 08/29/2024 Nurse Triage [address] [place] [address] Alee Elizondo PA 08/29/2024 Telephone [facility] Pulmonary [address] [place] [address] Shailesh Dunn MD Med Refill (Ropinirol HCL 0.5MG tab) 08/24/2024 Results Follow-Up [address] [phone] Sangita Farrar PA 08/23/2024 Orders Only [facility] Health Information Management [address] [place] [address] Alee Elizondo PA 08/23/[address] [address] Sangita Farrar PA Orencia Approved 08/23/2024 11:30 AM MATTRESS PACKER Office Visit [address] [address] Sangita Farrar PA 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) (Primary Dx); Primary osteoarthritis involving multiple joints; Encounter for medication monitoring 08/21/[address] [address] Codi Branham 08/02/2024 Telephone [facility] Pul[facility] [address] [address] Shailesh Dunn MD Orders Only 08/02/2024 11:45 AM MATTRESS PACKER Office Visit [facility] [address] [address] Magaly Snider NP OWEN on CPAP (Primary Dx); OWEN (obstructive sleep apnea); PLMD (periodic limb movement disorder) 08/01/2024 Orders Only [facility] Family Medicine [address] [facility] [address] [place] [address] Alee Elizondo PA Pre-diabetes (Primary Dx); Mixed hyperlipidemia; Fatigue, unspecified type 07/30/2024 9:00 AM MATTRESS PACKER Office Visit [address] [address] Sangita Farrar PA 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) (Primary Dx); Primary osteoarthritis involving multiple joints; Encounter for medication monitoring 07/24/2024 1:27 PM MATTRESS PACKER - 07/24/2024 11:59 PM MATTRESS PACKER Hospital Encounter [facility] Diag Imaging [address] [place] [address] Status post total knee replacement using cement, right Discharge Disposition: Discharge to home or self care 07/24/2024 Telephone [facility] Family Medicine [address] [facility] [address] [place] [address] Alee Elizondo PA Referral Request (/) 07/24/2024 2:00 PM MATTRESS PACKER Office Visit [facility] Orthopedics and Sports Medicine [facility] [address] [place] [phone] Michael Motta MD Status post total knee [...] She has had evaluation by Urology at [facility] and has been told there [...] provided. Assessment & Plan (05/07/2024 8:56 PM MATTRESS PACKER): Discussed the patient's BMI. The BMI is [...] provided. Assessment & Plan (09/06/2023 9:38 AM MATTRESS PACKER): Discussed the patient's BMI. The BMI is above average. BMI management plan is completed. BMI Follow-up includes: nutrition counseling, exercise counseling and education provided. Patient has an obesity-related condition (not limited to: hypertension, obstructive sleep apnea, osteoarthritis, hyperlipidemia, diabetes, etc.). Therefore, morbid obesity may be documented for patients with a BMI between 35.00-39.99. Assessment & Plan (08/07/2023 7:51 PM MATTRESS PACKER): Discussed the patient's BMI. The BMI is above average. BMI management plan is completed. BMI Follow-up includes: nutrition counseling, exercise counseling and education provided. Patient has an obesity-related condition (not limited to: hypertension, obstructive sleep apnea, osteoarthritis, hyperlipidemia, diabetes, etc.). Therefore, morbid obesity may be documented for patients with a BMI between 35.00-39.99. Assessment & Plan (08/03/2023 7:45 AM MATTRESS PACKER): Discussed the patient's BMI. The BMI is above average. BMI management plan is completed. BMI Follow-up includes: nutrition counseling, exercise counseling and education provided. Primary osteoarthritis of right knee 07/08/2023 Assessment & Plan (05/07/2024 8:56 PM MATTRESS PACKER): Patient has arthritis in the right knee. Planning a total knee replacement with Dr. Alexus Motta on May 30 Assessment & Plan (08/03/2023 8:28 AM MATTRESS PACKER): Continue per ortho. She is seeing some improvement but it is difficult to know if the knee is rheumatoid versus osteo versus other etiology. Will await recommendations from JACQUI Raya but definitely encouraged her to become active as soon as possible. Status post total knee replacement using cement, right 05/19/2023 Assessment & Plan (06/02/2023 4:56 PM MATTRESS PACKER): Status post total knee replacement with Dr. Ge Sexton 04 May. She has just been released from rehab following up for her TCM visit. She appears to have an area of cellulitis at the incision site. She is also complaining of increased pain. Will check CBC CMP and inflammatory markers along with an x-ray. She plans to go to [facility] for the workup. Will follow [...] provided. Assessment & Plan (06/02/2023 8:27 AM MATTRESS PACKER): Discussed the patients BMI: The BMI is [...] 12/20/2022 Assessment & Plan (05/07/2024 8:55 PM MATTRESS PACKER): Patient is on medication for her rheumatoid arthritis managed by [facility] Assessment & Plan (01/22/2024 8:13 PM CDT): Medications from [facility] contribute to her immunosuppressive state. Assessment & Plan (09/06/2023 9:41 AM MATTRESS PACKER): Medications are managed by [facility] for her rheumatoid arthritis Assessment & Plan (04/06/2023 7:44 PM CDT): Managed by [facility]. Currently on Plaquenil methotrexate Orencia [...] She has had evaluation by Urology at [facility] and has been told there [...] capacity. Assessment & Plan (09/06/2023 9:41 AM MATTRESS PACKER): Continue per . She did not tolerate [...] Pate. Assessment & Plan (07/18/2022 10:20 AM MATTRESS PACKER): CT revealed pelvic lipomatosis that is compressing [...] 02/11/2022 Assessment & Plan (09/06/2023 9:41 AM MATTRESS PACKER): No change. Dysfunction of both eustachian tubes 02/11/2022 Myalgia, lower leg 01/11/2022 PLMD (periodic limb movement disorder) Assessment & Plan (08/02/2024 11:49 AM MATTRESS PACKER): Asymptomatic Assessment & Plan (06/22/2022 10:31 AM MATTRESS PACKER): Will continue Requip 1 mg nightly Assessment [...] bedtime. Assessment & Plan (07/13/2021 11:25 AM MATTRESS PACKER): Due to the patient stating that she [...] 06/04/2020 Assessment & Plan (08/23/2024 10:16 AM MATTRESS PACKER): Hepatitis negative 06/2020 Tspot negative 06/2020 Continue routine lab monitoring Maintain routine eye exams throughout the duration of taking hydroxychloroquine Assessment & Plan (07/30/2024 8:24 AM MATTRESS PACKER): Hepatitis negative 06/2020 Tspot negative 06/2020 Continue [...] hydroxychloroquine Assessment & Plan (09/01/2023 8:34 AM MATTRESS PACKER): Hepatitis negative 06/2020 Tspot negative 06/2020 Continue routine lab monitoring Maintain routine eye exams throughout the duration of taking hydroxychloroquine Assessment & Plan (06/29/2023 2:19 PM MATTRESS PACKER): Hepatitis negative 06/2020 Tspot negative 06/2020 Continue [...] hydroxychloroquine Assessment & Plan (07/14/2022 2:58 PM MATTRESS PACKER): Hepatitis negative 06/2020 Tspot negative 06/2020 Continue routine lab monitoring Maintain routine eye exams throughout the duration of taking hydroxychloroquine Assessment & Plan (06/03/2022 9:58 AM MATTRESS PACKER): Hepatitis negative 06/2020 Tspot negative 06/2020 Continue [...] hydroxychloroquine Assessment & Plan (09/03/2021 8:29 AM MATTRESS PACKER): Hepatitis negative 06/2020 Tspot negative 06/2020 Continue routine lab monitoring Maintain routine eye exams throughout the duration of taking hydroxychloroquine Assessment & Plan (06/03/2021 4:17 PM MATTRESS PACKER): Hepatitis negative 06/2020 Tspot negative 06/2020 Continue [...] hydroxychloroquine Assessment & Plan (09/02/2020 1:16 PM MATTRESS PACKER): Hepatitis negative 06/2020 Tspot negative 06/2020 Continue routine lab monitoring Maintain routine eye exams throughout the duration of taking hydroxychloroquine Assessment & Plan (07/09/2020 12:23 PM MATTRESS PACKER): Hepatitis negative 06/2020 Tspot negative 06/2020 Continue routine lab monitoring Maintain routine eye exams throughout the duration of taking hydroxychloroquine Drug-induced constipation 08/13/2019 Assessment & Plan (05/07/2024 8:54 PM MATTRESS PACKER): Patient with chronic constipation. Has been on [...] linzess Assessment & Plan (08/13/2019 8:57 AM MATTRESS PACKER): On Movantik with Dr. Soto Herpes zoster without complication 12/13/2018 Assessment & Plan (12/23/2018 10:18 PM CDT): Valtex to pharmacy. She has had shingles in the past. Pre-diabetes 10/31/2018 Assessment & Plan (05/07/2024 8:55 PM MATTRESS PACKER): Pre-diabetes/hyperglycemia is a precursor to Dm. Stressed [...] diabetes. Assessment & Plan (09/06/2023 9:40 AM MATTRESS PACKER): Pre-diabetes/hyperglycemia is a precursor to Dm. Stressed [...] diabetes. Assessment & Plan (09/11/2021 11:22 PM MATTRESS PACKER): Pre-diabetes/hyperglycemia is a precursor to Dm. Stressed importance of working on diet (decrease your simple sugars and one carbohydrate with each meal) and increase you exercise to achieve weight loss and this will help prevent you from progressing to diabetes. Assessment & Plan (05/29/2021 8:18 PM MATTRESS PACKER): Pre-diabetes/hyperglycemia is a precursor to Dm. Stressed [...] diabetes. Assessment & Plan (08/31/2020 9:34 AM MATTRESS PACKER): Pre-diabetes is a precursor to Dm. Stressed [...] diabetes. Assessment & Plan (08/13/2019 9:00 AM MATTRESS PACKER): This is a significant, separately identifiable problem [...] 10/31/2018 Assessment & Plan (05/07/2024 8:54 PM MATTRESS PACKER): Depression symptoms are stable with Wellbutrin XL 150 Cymbalta 60 b.i.d. Assessment & Plan (04/21/2024 8:50 PM CDT): Depression symptoms are stable with the Wellbutrin XL 150 and Cymbalta 60 b.i.d. Assessment & Plan (01/22/2024 8:11 PM CDT): Depression symptoms are stable with Wellbutrin and Cymbalta Assessment & Plan (09/06/2023 9:40 AM MATTRESS PACKER): Depression is stable with Wellbutrin and Cymbalta Assessment & Plan (08/03/2023 8:31 AM MATTRESS PACKER): Stable with Cymbalta 60 and Wellbutrin XL [...] Cymbalta Assessment & Plan (09/11/2021 11:26 PM MATTRESS PACKER): Continue Wellbutrin and Cymbalta Assessment & Plan (05/29/2021 8:22 PM MATTRESS PACKER): Continue Wellbutrin and Cymbalta Assessment & Plan (05/24/2021 10:39 AM MATTRESS PACKER): Continue Wellbutrin and Cymbalta Assessment & Plan (12/24/2020 9:07 AM CDT): Continue wellbutrin and cymbalta Assessment & Plan (08/31/2020 9:35 AM MATTRESS PACKER): Continue wellbutrin and cymbalta Assessment & Plan (02/18/2020 9:47 PM CDT): Stable with the Cymbalata Assessment & Plan (08/13/2019 8:59 AM MATTRESS PACKER): Stable with Cymbalta and Wellbutrin Assessment & [...] regimen. Med list updated to reflect the [id number] one daily and Prozac 40mg. Mixed hyperlipidemia 03/29/2018 Assessment & Plan (05/07/2024 8:54 PM MATTRESS PACKER): Encouraged patient to follow low fat/low chol [...] statin Assessment & Plan (09/06/2023 9:42 AM MATTRESS PACKER): Encouraged patient to follow low fat/low chol [...] statin Assessment & Plan (09/11/2021 11:26 PM MATTRESS PACKER): Encouraged patient to follow low fat/low chol diet like the Mediterranean diet. Increase good fats in the diet. Increase exercise. Monitor labs as needed. Continue statin Assessment & Plan (05/29/2021 8:22 PM MATTRESS PACKER): Encouraged patient to follow fat/low chol diet like the Mediterranean diet. Increase good fats in the diet. Increase exercise. Monitor labs as needed. Continue statin Assessment & Plan (05/24/2021 10:39 AM MATTRESS PACKER): Encouraged patient to follow fat/low chol diet like the Mediterranean diet. Increase good fats in the diet. Increase exercise. Monitor labs as needed. Continue statin Assessment & Plan (12/24/2020 9:07 AM CDT): Encouraged patient to follow fat/low chol diet like the Mediterranean diet. Increase good fats in the diet. Increase exercise. Monitor labs as needed. Continue statin Assessment & Plan (08/31/2020 9:34 AM MATTRESS PACKER): Encouraged patient to follow fat/low chol diet like the Mediterranean diet. Increase good fats in the diet. Increase exercise. Monitor labs as needed. Continue statin Assessment & Plan (02/18/2020 9:46 PM CDT): Encouraged patient to continue low fat/low chol diet. Continue exercise. Increase good fats in the diet. Monitor labs as needed. Assessment & Plan (08/13/2019 8:59 AM MATTRESS PACKER): Encouraged patient to continue low fat/low chol [...] future Assessment & Plan (09/06/2023 9:40 AM MATTRESS PACKER): Continue PPI Assessment & Plan (04/06/2023 7:36 PM CDT): Continue PPI p.r.n. Assessment & Plan (01/20/2023 8:13 PM CDT): Continue PPI Assessment & Plan (09/12/2022 6:13 PM CDT): Continue PPI p.r.n. Assessment & Plan (06/03/2022 3:40 PM MATTRESS PACKER): Pyrosis poorly controlled on Nexium. Pt has [...] PPI Assessment & Plan (09/11/2021 11:26 PM MATTRESS PACKER): Continue PPI Assessment & Plan (12/24/2020 9:05 AM CDT): Continue PPI Assessment & Plan (02/18/2020 9:45 PM CDT): Continue PPI. Saw Dr. Linton for increased GERD sxs. If persist, encouraged to followup again with Dr. Linton. Assessment & Plan (08/13/2019 8:58 AM MATTRESS PACKER): Stable with PPI Assessment & Plan (04/29/2019 [...] exertion) Assessment & Plan (06/22/2022 10:30 AM MATTRESS PACKER): Patient is not currently using inhalers. She [...] 10/14/2015 Assessment & Plan (08/02/2024 11:49 AM MATTRESS PACKER): Due to the patient stating the pressure [...] readjusted. She denied need for supplies. DME [facility] Assessment & Plan (05/07/2024 8:55 PM MATTRESS PACKER): Continue with CPAP. Assessment & Plan (04/21/2024 8:49 PM CDT): Continue per Dr. Dunn. Has all her needed supplies for CPAP which she is using every night. Continue with Requip 0.5 mg HS for restless leg Assessment & Plan (01/22/2024 8:08 PM CDT): Continue CPAP per Dr. Dunn Assessment & Plan (09/06/2023 9:40 AM MATTRESS PACKER): Continue CPAP Assessment & Plan (06/21/2023 10:14 AM MATTRESS PACKER): Patient continue to wear her CPAP at [...] CPAP Assessment & Plan (06/22/2022 10:31 AM MATTRESS PACKER): Will continue CPAP therapy at an auto titrating range of 7-20 cm water pressure. Denied need for supplies. DME [facility] patient Assessment & Plan (05/02/2022 9:15 [...] pressure. Patient denied need for supplies. [facility] patient. Patient is benefitting CPAP Assessment & Plan (09/11/2021 11:22 PM MATTRESS PACKER): Continue CPAP. Patient has all needed supplies. Assessment & Plan (07/13/2021 11:27 AM MATTRESS PACKER): Due to the patient stating she does not have enough pressure in her machine, I have increased the pressure to 13 cm water pressure. The patient denied need for for supplies. DME [facility]. Have also ordered a new smart card set at 13 cm water pressure. Benefitting from CPAP therapy Assessment & Plan (05/29/2021 8:14 PM MATTRESS PACKER): Continue CPAP. Assessment & Plan (02/17/2021 11:09 AM CDT): The patient continues to be compliant with her CPAP at 8 cm water pressure. She has developed worsening daytime hypersomnia. She also has morning headaches and dry mouth. I have recommended proceeding with a CPAP titration study starting at 8 cm water pressure. Her DME is [facility]. Assessment & Plan (12/24/2020 9:04 AM CDT): Continue CPAP. Would like to see Pulm/sleep at [facility] alireza as difficulty getting in consistently at [place] and most of her care is now [facility] Assessment & Plan (02/18/2020 9:44 PM CDT): Continue CPAP Assessment & Plan (08/13/2019 8:46 AM MATTRESS PACKER): Using the CPAP. Has equipment as needed. [...] examination. Assessment & Plan (08/23/2024 12:54 PM MATTRESS PACKER): Moderate cdai with report of increasing pain, [...] needed. Assessment & Plan (07/30/2024 11:22 AM MATTRESS PACKER): Moderate cdai with report of increased morning [...] with labs near her home ([facility] in [place]), but the following month will need to plan for an in person visit. She expressed understanding and agreement with this plan. Continue methotrexate 20 mg weekly, folic acid 2 mg daily, and hydroxychloroquine 200 mg BID. Labs today as below. Assessment & Plan (05/07/2024 8:55 PM MATTRESS PACKER): Managed by [facility]. Currently on Plaquenil and methotrexate and Orencia folic acid Mobic and gabapentin. 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 Assessment & Plan (04/21/2024 8:49 PM CDT): Continue per [facility]. They currently manage her rheumatoid [...] Plan (01/22/2024 8:17 PM CDT): Continue per [facility] as they manage her condition. Assessment & Plan (11/24/2023 9:58 AM CDT): Low cdai without inflammatory sounding pain. Will continue methotrexate 20 mg weekly, folic acid 2 mg daily, hydroxychloroquine 200 mg BID, and Orencia and monitor. Labs today as below. Follow up in 3 months or sooner as needed. Assessment & Plan (09/06/2023 9:42 AM MATTRESS PACKER): Rheumatoid arthritis is managed by [facility]. Currently on Plaquenil methotrexate Orencia and folic acid Assessment & Plan (09/01/2023 3:39 PM MATTRESS PACKER): Overall stable without notable synovitis and no inflammatory sounding pain. Will continue methotrexate 20 mg weekly, folic acid 2 mg daily, hydroxychloroquine 200 mg BID, and Orencia and monitor. Labs today as below. Follow up in 3 months or sooner as needed. Assessment & Plan (08/03/2023 8:28 AM MATTRESS PACKER): Continue with rheumatology. Assessment & Plan (06/30/2023 12:43 PM MATTRESS PACKER): Overall stable without notable synovitis and no inflammatory sounding pain. Will continue methotrexate 20 mg weekly, folic acid 2 mg daily, hydroxychloroquine 200 mg BID, and Orencia and monitor. Labs today as below. Assessment & Plan (06/02/2023 4:49 PM MATTRESS PACKER): Continue per Rheumatology Assessment & Plan (04/06/2023 7:35 PM CDT): Continue per Rheumatology. She has been in discussion with them on what medications to stop prior to her knee surgery. She states she was told to take all of her medicines accept the Orencia. Assessment & Plan (01/20/2023 8:12 PM CDT): Continue per Rheumatology [facility] Assessment & Plan (01/13/2023 3:42 [...] Plan (09/12/2022 6:06 PM CDT): Continue with [facility] Assessment & Plan (07/15/2022 1:41 PM MATTRESS PACKER): Low cdai. Significantly improved after IM triamcinolone [...] needed. Assessment & Plan (06/03/2022 3:37 PM MATTRESS PACKER): High cdai. Previously felt well controlled with current regimen. Due to burden of disease will give patient a triamcinolone injection. 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 Should she flare again shortly after [...] (01/23/2022 4:57 PM CDT): Continue management per [facility] Assessment & Plan (12/07/2021 9:02 AM CDT): Low cdai. Denies inflammatory sounding joint pain. Continue methotrexate 25 mg weekly, folic acid to 2 mg daily, Rinvoq 15 mg daily, hydroxychloroquine 200 mg BID, and cyclobenzaprine 5 mg qhs and monitor. Labs today as below. Plan for follow up in 3 months or sooner as needed. Assessment & Plan (09/11/2021 11:14 PM MATTRESS PACKER): Continue per [facility] Assessment & Plan (09/03/2021 11:25 AM MATTRESS PACKER): cdai = 12. Pt suspects increased joint [...] needed. Assessment & Plan (06/04/2021 10:25 AM MATTRESS PACKER): Low cdai. Denies inflammatory sounding pain at present. Will plan to continue methotrexate 25 mg weekly, folic acid to 2 mg daily, Rinvoq 15 mg daily, hydroxychloroquine 200 mg BID, and cyclobenzaprine 5 mg qhs and monitor. Labs today as below. Plan for follow up in 3 months or sooner as needed. Assessment & Plan (05/31/2021 9:15 PM MATTRESS PACKER): Continue per Rheumatology Assessment & Plan (05/29/2021 8:13 PM MATTRESS PACKER): Continue per Rheumatology. Currently on Plaquenil methotrexate and folic acid. Assessment & Plan (05/24/2021 10:38 AM MATTRESS PACKER): Continue per Rheumatology Assessment & Plan (03/05/2021 [...] needed. Assessment & Plan (09/03/2020 12:22 PM MATTRESS PACKER): Low cdai. Continues to feel improved with [...] needed. Assessment & Plan (08/31/2020 9:34 AM MATTRESS PACKER): Continue per [facility] Assessment & Plan (07/09/2020 12:22 PM MATTRESS PACKER): 64yoF with a h/o seropositive RA diagnosed [...] time. Assessment & Plan (06/04/2020 11:14 AM MATTRESS PACKER): 64yoF with a h/o seropositive RA diagnosed [...] needed. Assessment & Plan (05/14/2020 9:33 PM MATTRESS PACKER): Refer to new [facility] as Dr. Soto has . Assessment & Plan (02/18/2020 9:46 PM CDT): Continue per Rheum Assessment & Plan (08/13/2019 8:59 AM MATTRESS PACKER): Continue per Dr. Soto Assessment & Plan [...] responding to Reclast. Forteo was tried by [facility] and she could not tolerate. [...] of her osteoporosis, recommended evaluation by the [facility], unfortunately their first available appt was in November 2024. Recommended today that she check with [facility] Osteoporosis center (at [facility]) to see how far out they are scheduling new patients, though she does not like this option due to distance from her house. Assessment & Plan (09/06/2023 9:40 AM MATTRESS PACKER): Managed by [facility]. Per patient they are making a referral to bone metabolism at [facility] she has not seen significant improvement with the Forteo or the Reclast. Assessment & Plan (09/01/2023 3:43 PM MATTRESS PACKER): DEXA: Lspine BMD 0.809 Tscore -2.2, L [...] of her osteoporosis, recommend evaluation by the [facility], provided contact info for Dr. Castillo. Pt in agreement with plan. Assessment & Plan (06/30/2023 12:49 PM MATTRESS PACKER): DEXA: Lspine BMD 0.809 Tscore -2.2, L [...] PM CDT): Continue to monitor. Managed by [facility]. Patient is on Reclast calcium vitamin-D [...] exercise Assessment & Plan (07/15/2022 1:42 PM MATTRESS PACKER): 01/27/2021 DEXA: Lspine -1.8, L femoral neck -1.9, L total hip -1.2, R femoral neck -2.3, R total hip -1.0, FRAX major 32% and hip 7%. Received Reclast 07/2021. Continue yearly Reclast, scheduled for 07/22 Assessment & Plan (06/03/2022 3:38 PM MATTRESS PACKER): 01/27/2021 DEXA: Lspine -1.8, L femoral neck [...] Plan (01/23/2022 5:02 PM CDT): Managed by [facility] currently on Reclast calcium and vitamin-D Assessment & Plan (12/07/2021 9:04 AM CDT): 01/27/2021 DEXA: Lspine -1.8, L femoral neck -1.9, L total hip -1.2, R femoral neck -2.3, R total hip -1.0, FRAX major 32% and hip 7%. Received Reclast 07/2021. Continue yearly Reclast. Assessment & Plan (09/03/2021 11:26 AM MATTRESS PACKER): 01/27/2021 DEXA: Lspine -1.8, L femoral neck -1.9, L total hip -1.2, R femoral neck -2.3, R total hip -1.0, FRAX major 32% and hip 7%. Received Reclast 07/2021. Continue yearly reclast and daily vitamin D-calcium supplement. Assessment & Plan (06/04/2021 10:27 AM MATTRESS PACKER): 01/27/2021 DEXA: Lspine -1.8, L femoral neck [...] order provided today, she will schedule at [facility] Assessment & Plan (12/24/2020 9:06 AM CDT): Continue Reclast thru Rheum Continue calcium, vitD and exercise Assessment & Plan (12/03/2020 10:45 AM CDT): Vitamin D level was 68. Received Reclast 07/09/2020. Last DEXA per available records was 01/31/2019, due this summer - order provided today, she will schedule at [facility] Assessment & Plan (09/03/2020 12:23 PM MATTRESS PACKER): Vitamin D level was 68. Received Reclast 07/09/2020. Last DEXA per available records was 01/31/2019, due this summer. Assessment & Plan (07/09/2020 12:23 PM MATTRESS PACKER): Overdue for Reclast, last infusion was 03/28/2019, will receive infusion today. Vitamin D level was 68 Last DEXA per available records was 01/31/2019 Assessment & Plan (06/04/2020 11:15 AM MATTRESS PACKER): Overdue for Reclast, last infusion was 03/28/2019, will check benefits. Recheck vitamin D level now. Last DEXA per available records was 01/31/2019 Assessment & Plan (02/18/2020 9:46 PM CDT): Calcium, vit D and exercise. Continue to monitor DXA Assessment & Plan (08/13/2019 8:58 AM MATTRESS PACKER): Continue with Calcium, Vit D and Exercise. Recheck DXA iin Fall 2019 with mammogram Resolved Problems Problem Noted Date Diagnosed Date Resolved Date Encounter for pre-operative examination 05/07/2024 10/09/2024 Assessment & Plan (05/07/2024 8:57 PM MATTRESS PACKER): I have examined this patient and ordered [...] Krishnamurthy. 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 Daniels Stressed importance of very close follow-up BMI 37.0-37.9, adult 09/06/2023 024 Assessment & Plan (10/13/2023 7:38 AM CDT): Discussed the patient's BMI. The BMI is above average. BMI management plan is completed. BMI Follow-up includes: nutrition counseling, exercise counseling and education provided. Assessment & Plan (09/06/2023 9:42 AM MATTRESS PACKER): Discussed the patient's BMI. The BMI is above average. BMI management plan is completed. BMI Follow-up includes: nutrition counseling, exercise counseling and education provided. Hyperglycemia 09/06/2023 09/06/2023 Positive depression screening 09/06/2023 09/06/2023 Annual physical exam 09/06/2023 024 Assessment & Plan (09/06/2023 9:43 AM MATTRESS PACKER): Encouraged healthy lifestyle, good nutrition and exercise. Encouraged Calcium and Vitamin D and weight bearing exercise for bone health. Reviewed immunizations Reviewed age appropirate screenings. Orthopedic aftercare 08/09/2023 025 Right knee pain 08/09/2023 09/06/2023 Sinus congestion 08/07/2023 09/06/2023 Assessment & Plan (08/07/2023 7:54 PM MATTRESS PACKER): Persistent sinusitis symptoms along with cough. Will start doxy b.i.d.. Start antihistamine (Claritin OR Zyrtec), Mucinex 12hour and Steroid nasal spray (Flonase). Push fluids. Rest. Supportive care. If sxs worsen or don\'t improve, pt is to followup in the office. Acute cough 08/07/2023 01/22/2024 Assessment & Plan (08/07/2023 7:55 PM MATTRESS PACKER): Persistent sinusitis symptoms along with cough. Will start doxy b.i.d.. Start antihistamine (Claritin OR Zyrtec), Mucinex 12hour and Steroid nasal spray (Flonase). Push fluids. Rest. Supportive care. If sxs worsen or don\'t improve, pt is to followup in the office. BMI 35.0-35.9,adult 08/03/2023 09/06/19 24 Assessment & Plan (08/07/2023 7:51 PM MATTRESS PACKER): Discussed the patient's BMI. The BMI is above average. BMI management plan is completed. BMI Follow-up includes: nutrition counseling, exercise counseling and education provided. Assessment & Plan (08/03/2023 8:29 AM MATTRESS PACKER): Discussed the patient's BMI. The BMI is [...] 01/22/2024 Assessment & Plan (06/02/2023 4:57 PM MATTRESS PACKER): Later in the day received critical lab call for a CO2 value at 42. My staff contacted the patient and she was instructed to go to the ER for further evaluation to determine underlying cause. She states throughout the day she has noticed a little bit more shortness of breath. She plans to have her brother drive her to [facility]. Charge nurse was notified of the arrival [...] surgery. Will defer cardiac clearance to her senior digital designer. Her chronic medical conditions are stable. [facility] as instructed her to hold the [...] symptoms worsen or do not respond to [id number] allergy medicines within the next week she [...] provided. Assessment & Plan (08/23/2022 2:19 PM MATTRESS PACKER): Discussed the patient's BMI. The BMI is [...] plans Assessment & Plan (07/18/2022 10:20 AM MATTRESS PACKER): CT revealed pelvic lipomatosis that is compressing [...] 12/20/2022 Assessment & Plan (07/18/2022 10:21 AM MATTRESS PACKER): CT revealed pelvic lipomatosis that is compressing [...] plan, Assessment & Plan (07/08/2022 12:33 PM MATTRESS PACKER): Patient has had dysuria. She was started [...] 07/08/202204/06 Assessment & Plan (07/18/2022 10:21 AM MATTRESS PACKER): CT revealed pelvic lipomatosis that is compressing [...] plan, Assessment & Plan (07/08/2022 5:58 PM MATTRESS PACKER): Images from the original note were not [...] STAT abd/pelvis with and without contrast at [place]. Check labs STAT. STAT CT Abd/pelvis without [...] 09/06/2023 Assessment & Plan (07/08/2022 12:33 PM MATTRESS PACKER): Patient has had dysuria. She was started [...] STAT abd/pelvis with and without contrast at [place]. Check labs STAT. Assessment & Plan (07/06/2022 8:50 AM MATTRESS PACKER): Pt presents with dysuria. Urine dip completed. [...] 35.00-39.99. Assessment & Plan (07/18/2022 10:23 AM MATTRESS PACKER): Discussed the patient's BMI. The BMI is above average. BMI management plan is completed. BMI Follow-up includes: nutrition counseling, exercise counseling and education provided. Assessment & Plan (07/08/2022 12:30 PM MATTRESS PACKER): Discussed the patient's BMI. The BMI is [...] She has received multiple injections from her parcel carrier regarding her knee but yesterday when she [...] 01/23/2022 Assessment & Plan (09/11/2021 11:28 PM MATTRESS PACKER): Patient has never had a full skin exam. She has quite a few lesions scattered and would benefit from a full exam. Will make referral Annual physical exam 09/11/2021 Assessment & Plan (09/11/2021 11:28 PM MATTRESS PACKER): Encouraged healthy lifestyle, good nutrition and exercise. Encouraged Calcium and Vitamin D and weight bearing exercise for bone health. Reviewed immunizations Reviewed age appropirate screenings. Cough 08/13/2021 01/23/2022 Assessment & Plan (08/13/2021 3:43 PM MATTRESS PACKER): Patient to presume positive COVID/FLU until results are available and plan to self isolate for up to 10 days from the onset of sxs. Check COVID/FLU test thru [facility] collection site in [place]. Let pt know the newest CDC recommendations [...] future. Assessment & Plan (07/13/2021 11:28 AM MATTRESS PACKER): I have ordered the patient Claritin 10 [...] provided. Assessment & Plan (09/11/2021 11:27 PM MATTRESS PACKER): Obesity is unchanged. Discussed the patient's BMI. The BMI is above average. BMI management plan is completed. BMI Follow-up includes: nutrition counseling, exercise counseling and education provided. Assessment & Plan (05/29/2021 8:24 PM MATTRESS PACKER): Obesity is unchanged. Discussed the patient's BMI. The BMI is above average. BMI management plan is completed. BMI Follow-up includes: nutrition counseling, exercise counseling and education provided. Assessment & Plan (05/12/2021 1:26 PM MATTRESS PACKER): Obesity is unchanged. Discussed the patient's BMI. The BMI is above average. BMI management plan is completed. BMI Follow-up includes: nutrition counseling, exercise counseling and education provided. BMI 37.0-37.9, adult 05/12/2021 022 Assessment & Plan (09/11/2021 11:27 PM MATTRESS PACKER): Obesity is unchanged. Discussed the patient's BMI. The BMI is above average. BMI management plan is completed. BMI Follow-up includes: nutrition counseling, exercise counseling and education provided. Assessment & Plan (05/29/2021 8:24 PM MATTRESS PACKER): Obesity is unchanged. Discussed the patient's BMI. The BMI is above average. BMI management plan is completed. BMI Follow-up includes: nutrition counseling, exercise counseling and education provided. Assessment & Plan (05/12/2021 1:26 PM MATTRESS PACKER): Obesity is unchanged. Discussed the patient's BMI. The BMI is above average. BMI management plan is completed. BMI Follow-up includes: nutrition counseling, exercise counseling and education provided. Tinea corporis 04/14/2021 01/23/2022 Assessment & Plan (05/31/2021 9:15 PM MATTRESS PACKER): Improving with Lotrisone. Keep the area clean and dry Assessment & Plan (05/29/2021 8:24 PM MATTRESS PACKER): Lotrisone to pharmacy. Encouraged her to keep the area clean and dry use her dryer to dry the skin before applying the cream. She is to call if symptoms worsen or do not resolve. Need for immunization against influenza 04/14/2021 05/31/2021 Assessment & Plan (05/29/2021 8:24 PM MATTRESS PACKER): Fluid updated in the office Medicare annual wellness visit, subsequent 04/13/2021 05/31/2021 Assessment & Plan (05/29/2021 8:23 PM MATTRESS PACKER): Encouraged healthy lifestyle, good nutrition and exercise. [...] 12/30/2020 Assessment & Plan (08/31/2020 9:31 AM MATTRESS PACKER): Error. This should be right calf but PT order sent and corrected so unable to remove. Fatigue 08/31/2020 09/06/2023 Assessment & Plan (04/06/2023 7:43 PM CDT): Probably multifactorial. Check labs and followup to re-evaluate Assessment & Plan (05/02/2022 9:16 PM CDT): Probably multifactorial. Check labs and followup to re-evaluate Assessment & Plan (08/31/2020 9:34 AM MATTRESS PACKER): Probably multifactorial. Check labs and followup to re-evaluate Pain in both lower extremities 08/31/2020 09/06/2023 Assessment & Plan (09/01/2023 3:41 PM MATTRESS PACKER): Cramping lower leg pain has resolved with [...] 021 Assessment & Plan (08/31/2020 9:33 AM MATTRESS PACKER): Obesity is unchanged. Discussed the patient's BMI. The BMI is above average. BMI management plan is completed. BMI Follow-up includes: nutrition counseling, exercise counseling and education provided. Pain of right calf 08/26/2020 Assessment & Plan (08/31/2020 9:31 AM MATTRESS PACKER): This is a significant, separately identifiable problem that was evaluated and managed on the same day as the wellness exam Unable to rule out DVT with her calf pain/sxs. Check STAT Venous doppler. Recvd Results and discussed with patient via phone. Negative for DVT. Recommend PT. [facility] Annual physical exam 08/24/2020 021 Assessment & Plan (08/31/2020 9:34 AM MATTRESS PACKER): Encouraged healthy lifestyle, good nutrition and exercise. Encouraged Calcium and Vitamin D and weight bearing exercise for bone health. Reviewed immunizations Reviewed age appropirate screenings. Dizziness 05/07/2020 09/06/2023 Assessment & Plan (05/14/2020 9:35 PM MATTRESS PACKER): Suspect the dizziness is inner ear related. [...] imaging. Assessment & Plan (05/07/2020 1:49 PM MATTRESS PACKER): Declines to report to er now 'I [...] 05/14/2020 Assessment & Plan (05/07/2020 1:49 PM MATTRESS PACKER): Declines to report to er now 'I [...] 12/30/2020 Assessment & Plan (05/07/2020 1:49 PM MATTRESS PACKER): Declines to report to er now 'I [...] provided Assessment & Plan (05/31/2021 9:15 PM MATTRESS PACKER): Mammogram order provided Assessment & Plan (02/18/2020 9:47 PM CDT): Mammogram order provided today Medicare annual wellness visit, subsequent 02/15/2020 02/15/2020 Precordial pain 09/04/2019 09/06/2023 Assessment & Plan (08/07/2023 7:50 PM MATTRESS PACKER): Workup in the hospital. Cardiology states her [...] inhaler. Assessment & Plan (07/13/2021 11:26 AM MATTRESS PACKER): The patient will continue with Dulera 2 [...] 020 Assessment & Plan (08/13/2019 8:59 AM MATTRESS PACKER): Encouraged healthy lifestyle, good nutrition and exercise. Encouraged Calcium and Vitamin D and weight bearing exercise for bone health. Reviewed immunizations Reviewed age appropirate screenings. Obesity, morbid, BMI 40.0-49.9 08/13/2019 09/23/2020 Assessment & Plan (08/26/2020 7:10 AM MATTRESS PACKER): Obesity is unchanged. Discussed the patient's BMI. The BMI is above average. BMI management plan is completed. BMI Follow-up includes: nutrition counseling, exercise counseling and education provided. Assessment & Plan (05/14/2020 9:33 PM MATTRESS PACKER): Obesity is unchanged. Discussed the patient's BMI. [...] provided. Assessment & Plan (08/13/2019 8:58 AM MATTRESS PACKER): Obesity is unchanged. Discussed the patient's BMI. [...] change Assessment & Plan (08/13/2019 9:01 AM MATTRESS PACKER): This is a significant, separately identifiable problem [...] 01/22/2024 Assessment & Plan (09/06/2023 9:42 AM MATTRESS PACKER): Probably multifactorial. Check labs and followup to re-evaluate Assessment & Plan (09/03/2021 11:28 AM MATTRESS PACKER): She notes increased fatigue and lack of [...] re-evaluate Assessment & Plan (08/13/2019 9:08 AM MATTRESS PACKER): Probably multifactorial. Check labs and followup to re-evaluate Check labs prior to next visit BMI 40.0-44.9, adult 08/02/2019 020 Assessment & Plan (08/13/2019 8:57 AM MATTRESS PACKER): Obesity is unchanged. Discussed the patient's BMI. The BMI is above average. BMI management plan is completed. BMI Follow-up includes: nutrition counseling, exercise counseling and education provided. Assessment & Plan (08/02/2019 7:21 AM MATTRESS PACKER): Obesity is unchanged. Discussed the patient's BMI. The BMI is above average. BMI management plan is completed. BMI Follow-up includes: nutrition counseling, exercise counseling and education provided. Morbid obesity 08/02/2019 08/13/2019 Assessment & Plan (08/02/2019 7:20 AM MATTRESS PACKER): Obesity is unchanged. Discussed the patient's BMI. The BMI is above average. BMI management plan is completed. BMI Follow-up includes: nutrition counseling, exercise counseling and education provided. Acute non-recurrent maxillary sinusitis 08/02/2019 08/13/2019 Assessment & Plan (08/02/2019 7:47 AM MATTRESS PACKER): Start antibiotic, antihistamine, Mucinex and Steroid nasal [...] 12/31/19 Assessment & Plan (05/14/2020 9:33 PM MATTRESS PACKER): Completed Doxy and steroid. No s/s infection. [...] p.r.n. Assessment & Plan (08/13/2019 8:59 AM MATTRESS PACKER): Continue with NSAIDs prn Atheroscler of [place] artery of both legs with intermit claudication 10/31/2018 12/20/2022 Assessment & Plan (09/11/2021 11:23 PM MATTRESS PACKER): Continue per vascular. She is on aspirin and statin Assessment & Plan (12/24/2020 9:03 AM CDT): Sxs stable. On ASA, statin and encouraged daily exercise. Assessment & Plan (02/18/2020 9:43 PM CDT): Continue per cardio. On ASA and statin Assessment & Plan (08/13/2019 8:45 AM MATTRESS PACKER): Continues with Dr. Alonso salmeron Assessment & Plan (11/01/2018 11:00 PM CDT): Pt sxs well controlled. On ASA Coronary artery disease of n ative artery of [place] heart with stable angina pectoris 10/31/2018 12/30/2020 Assessment & Plan (08/13/2019 8:36 AM MATTRESS PACKER): On ASA and Nitrate. Continue per cardio Depression 07/16/2018 09/11/2021 Frontal sinusitis 06/26/2018 12/24/2020 Leukopenia 03/29/2018 12/30/2020 Other chronic pain 08/05/2017 3 Chronic seasonal allergic rh initis due to pollen 04/25/2017 12/30/2020 Assessment & Plan (12/24/2020 9:03 AM CDT): Continue current regimen with singulair and otc Assessment & Plan (02/18/2020 9:44 PM CDT): Continue with otc regimen Assessment & Plan (08/13/2019 8:46 AM MATTRESS PACKER): Continue current regimen Assessment & Plan (11/01/2018 [...] potassium Assessment & Plan (09/11/2021 11:26 PM MATTRESS PACKER): Bp is stable/in acceptable range for any co-morbidities. Encouraged to limit sodium intake and exercise for weight control. Currently stable without medication Assessment & Plan (05/29/2021 8:19 PM MATTRESS PACKER): Bp is stable/in acceptable range for any co-morbidities. Encouraged to limit sodium intake and exercise for weight control. Continue Lasix is helping with the swelling and addition. Blood pressure stable Assessment & Plan (05/24/2021 10:38 AM MATTRESS PACKER): Continue Lasix potassium Assessment & Plan (12/24/2020 9:05 AM CDT): Bp is stable/in acceptable range for any co-morbidities. Encouraged to limit sodium intake and exercise for weight control. Assessment & Plan (08/31/2020 9:32 AM MATTRESS PACKER): Bp is stable/in acceptable range for any co-morbidities. Encouraged to limit sodium intake and exercise for weight control. Stable with laxis currently Assessment & Plan (02/18/2020 9:44 PM CDT): Bp is stable/in acceptable range for any co-morbidities. Encouraged to limit sodium intake and exercise for weight control. Assessment & Plan (08/13/2019 8:57 AM MATTRESS PACKER): Bp is stable/in acceptable range for any [...] difficulty pulling them. Recommend finding some on [employer] that fit her calf that she can zip on and off. Showed them to her on [employer] and where to order them. She states she will try to get them. Assessment & Plan (05/31/2021 9:16 PM MATTRESS PACKER): Improving slowly. May have been due to the Relafen. She is on 60 of Lasix with potassium 10 mEq daily. Continue with current plan. Keep legs elevated. Utilize compressi to improve cleared. on hose. Call if symptoms worsen or do not continue to improve. Assessment & Plan (05/29/2021 8:23 PM MATTRESS PACKER): Persistent lower extremity edema that has improved [...] CMP. Assessment & Plan (05/24/2021 10:39 AM MATTRESS PACKER): Patient that her swelling was improving since discharge for over the last day or so it seems to be increasing. Will increase the Lasix to 40mg Start K 10meq daily Recheck labs in 5 days Assessment & Plan (08/31/2020 9:33 AM MATTRESS PACKER): Continue lasix Palpitations 12/08/2015 12/30/2020 Overview (10/09/2016): Palpitations Other abnormal glucose 11/11/201508/31 Asthma 10/14/2015 12/24/2020 Assessment & Plan (08/13/2019 8:49 AM MATTRESS PACKER): Continue with current regimen and with Pulmonary [...] noted. Assessment & Plan (08/23/2024 10:16 AM MATTRESS PACKER): 02/2021 XR L knee with mild to moderate OA, now s/p B TKA. Following with ortho as planned. Assessment & Plan (07/30/2024 11:23 AM MATTRESS PACKER): 02/2021 XR L knee with mild to [...] March. Assessment & Plan (09/01/2023 3:42 PM MATTRESS PACKER): 02/2021 XR L knee with mild to moderate OA, R knee negative. Had injections with ortho without benefit, now s/p L TKA. Assessment & Plan (06/30/2023 12:46 PM MATTRESS PACKER): 02/2021 XR L knee with mild to [...] g/d. Assessment & Plan (07/15/2022 1:41 PM MATTRESS PACKER): 02/2021 XR L knee with mild to moderate OA, R knee negative. Had injections with ortho with benefit. Unable to afford PT. Can continue Tylenol Arthritis, not to exceed 4 g/d. Assessment & Plan (06/03/2022 9:58 AM MATTRESS PACKER): 02/2021 XR L knee with mild to [...] evaluation. Assessment & Plan (09/03/2021 11:27 AM MATTRESS PACKER): XR L knee with mild to moderate [...] able. Assessment & Plan (06/04/2021 10:27 AM MATTRESS PACKER): XR L knee with mild to moderate [...] above. Assessment & Plan (09/03/2020 12:23 PM MATTRESS PACKER): 10/27/2017 XR L knee: mild tricompartmental OA. Will continue meloxicam as above. Assessment & Plan (07/09/2020 12:24 PM MATTRESS PACKER): 10/27/2017 XR L knee: mild tricompartmental OA. Will continue meloxicam as above. In the future may consider trial of PT. Immunizations Immunization Administration Dates Next Due COVID-19 mRNA ([employer]) 0.3 m L (30 mcg) vaccine (12 [...] 0.6 oz pur e alcohol) [facility] Utilities Answer Date Recorded In the past 12 months has [employer], [employer], oil, or water [employer] threatened to shut off services in your home? No 05/30/2024 Social Connection and Isolation Panel [NHANES] A nswer Date Recorded In a typical week, how many times do you talk on the phone with family, friends, or neighbors? Twice a week 05/30/20 How often do you get togethe r with friends or relatives? Twice a week 05/30/2024 How often do you attend [facility] or church services? 1 to 4 times per year 05/30/2024 Do you belong to any clubs o r organizations such as anglican groups, unions, fraternal or athletic groups, or [...] on file Legal Sex Female 8:04 PM MATTRESS PACKER Gender Identity Female 02/15/2020 6:08 PM CDT [...] on file Medical Devices Implanted Type Area Rag Sorter And Cutter Device Identifier Shelf Expiration Date Model / Serial / Lot [employer] Simplex P Radiopaque Full Dose Cement Bone Sterile 6191-1-010 - [id number] Implanted:Qty: 2 on 05/04/2023 by Michael Motta MD at [facility] Bone Cement Left: Knee [employer] 05/03/2025 6191-1-010 / 6191-1-001 / [id number] [employer] Simplex P Radiopaque Full Dose Cement Bone Sterile 6191-1-010 - [id number] Implanted:Qty: 2 on 05/30/2024 by Michael Motta MD at [facility] Bone Cement Right: Patella [facility] [id number] 05/03/2026 6191-1-010 / / [id number] [employer] Persona 14mm 30+ Mm Knee Tibia Taper Extension Stem [id number] - [id number] 4 - [id number] Implanted:Qty: 1 on 05/04/2023 by Michael Motta MD at [facility] Left: Knee [employer] [id number] 02/15/2033 [id number] / [id number]- 14 / [id number] [employer] Persona Cemented Cruciate Retaining Knee Left 7 Narrow Component [id number] - Q74-5639-693-7 1 - [id number] Implanted:Qty: 1 on 05/04/2023 by Michael Motta MD at [facility] Left: Knee [employer] [id number] 10/25/2032 [id number] / 54-9523-764- 01 / [id number] [employer] Baseplate Tibial Knee Cemented Left Fixed Stemmed Persona Size D Tivanium [id number] - P65-7200-894-2 1 - [id number] Implanted:Qty: 1 on 05/04/2023 by Michael Motta MD at [facility] Left: Knee [employer] [id number] 09/11/2032 [id number] / 46-0340-570- 01 / [id number] [employer] Persona 11mm Knee Left 6-7 C-D Insert Articular Vivacit-E Sterile [id number] - Y49-9530-288-3 1 - [id number] Implanted:Qty: 1 on 05/04/2023 by Michael Motta MD at [facility] Left: Knee [employer] [id number] 12/28/2025 [id number] / 41-7827-013- 11 / [id number] [employer] Persona 32mm Knee Component Patellar All Poly Latex Free 80-5647-947-32 - [id number] Implanted:Qty: 1 on 05/04/2023 by Michael Motta MD at [facility] [employer] 12/19/2027 [id number] / / [id number] [employer] Baseplate Tibial Knee Cemented Right Fixed Stemmed Persona Size C Tivanium [id number] - [id number] Implanted:Qty: 1 on 05/30/2024 by Michael Motta MD at [facility] Right: Knee [employer] [id number] 03/22/2033 [id number] / / [id number] [employer] Persona 29mm Knee Component Patellar All Poly Latex Free [id number] - [id number] Implanted:Qty: 1 on 05/30/2024 by Michael Motta MD at [facility] Right: Knee [employer] [id number] 12/18/2028 [id number] / / [id number] [employer] Persona 13mm Cruciate Retain Knee Right 6-7 Cd Insert Articular Latex Free [id number] - [id number] Implanted:Qty: 1 on 05/30/2024 by Michael Motta MD at [facility] Right: Patella [employer] [id number] 05/04/2025 [id number] / / [id number] [employer] Persona Cruciate Retaining Cemented Knee Right 7 Narrow Component [id number] - [id number] Implanted:Qty: 1 on 05/30/2024 by Michael Motta MD at [facility] Right: Knee [employer] [id number] 12/27/2033 [id number] / / [id number] [employer] Persona 14mm 30+ Mm Knee Tibia Taper Extension Stem [id number] - [id number] Implanted:Qty: 1 on 05/30/2024 by Michael Motta MD at [facility] Right: Knee [employer] [id number] 04/11/2034 [id number] / / [id number] Procedures Procedure Name Priority Date/Time Associated Diagnosis [...] Read Routine (OP Routine) 08/29/2024 12:23 PM MATTRESS PACKER COMPREHENSIVE METABOLIC PANEL Routine 08/23/2024 2:11 PM MATTRESS PACKER Encounter for medication monitoring CBC WITH AUTO DIFFERENTIAL Routine 08/23/2024 2:11 PM MATTRESS PACKER Encounter for medication monitoring SCAN - LABS 08/23/2024 VITAMIN B12 Routine 08/02/2024 7:41 AM MATTRESS PACKER Fatigue, unspecified type LIPID PANEL Routine 08/02/2024 7:41 AM MATTRESS PACKER Mixed hyperlipidemia HEMOGLOBIN A1C Routine 08/02/2024 7:41 AM MATTRESS PACKER Pre-diabetes COMPREHENSIVE METABOLIC PANEL Routine 08/02/2024 7:41 AM MATTRESS PACKER Mixed hyperlipidemia CBC WITH AUTO DIFFERENTIAL Routine 08/02/2024 7:41 AM MATTRESS PACKER Fatigue, unspecified type TSH Routine 08/02/2024 7:41 AM MATTRESS PACKER Fatigue, unspecified type ERYTHROCYTE SEDIMENTATION RATE Routine 07/30/2024 2:36 PM MATTRESS PACKER 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) CRP (ACUTE PHASE) Routine 07/30/2024 2:3 6 PM MATTRESS PACKER 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) COMPREHENSIVE METABOLIC PANEL Routine 07/30/2024 2:36 PM MATTRESS PACKER Encounter for medication monitoring CBC WITH AUTO DIFFERENTIAL Routine 07/30/2024 2:36 PM MATTRESS PACKER Encounter for medication monitoring XR KNEE RIGHT 3 VIEWS Schedule Routine, Read Routine (OP Routine) 07/24/2024 1:35 PM MATTRESS PACKER Status post total knee replacement using cement, right DEXA AXIAL SKELETON BONE DENSITY 1 OR MORE SITES Schedule Routine, Read Routine (OP Routine) 04/12/2023 8:14 AM CDT COLONOSCOPY Routine 07/27/2021 HEPATITIS C ANTIBODY Routine 06/04/2020 10:29 AM MATTRESS PACKER Encounter for screening for other viral diseases [...] TEST ORDERABLES Final Result [id number] [id number], [facility] * XR Knee Right 3 Views [...] John Sparrow M.D. RB T: Report ID: [id number] Reading Location: [id number] Procedure Note John Sparrow MD - 09/18/2024 [...] John Sparrow M.D. RB T: Report ID: [id number] Reading Location: [id number] Michael Motta MD IMG XR PROCEDURES Final Re sult * (ABNORMAL) CT Abdomen Pelvis W Contrast (08/29/2024 12:23 PM MATTRESS PACKER) Anatomical Region Laterality Modality Body N/A Computed Tomogra phy Historical Provider IMG CT PROCEDURES Edited Result - Final * CBC with auto differential (08/23/2024 2:11 PM MATTRESS PACKER) WBC 4.8 3.8 - 10.8 Thousand/u L [...] [facility] Blood 08/23/2024 2:11 PM MATTRESS PACKER 08/23/2024 2:11 PM MATTRESS PACKER us Sangita [facility]SM[facility] LAB BLOOD ORDERABLES Vy l Result [facility] [address] [place] [address] * (ABNORMAL) Comprehensive metabolic panel (08/23/2024 2:11 PM MATTRESS PACKER) Glucose 188(H) 65 - 99 mg/dL [facility] [...] [facility] Blood 08/23/2024 2:11 PM MATTRESS PACKER 08/23/2024 2:11 PM MATTRESS PACKER Sangita [facility] BLOOD ORDERABLES Vy l Result [facility] [address] [address] * SCAN - LABS (08/23/2024) Alee OSMAN Final Resu lt * (ABNORMAL) CBC with auto differential (08/02/2024 7:41 AM MATTRESS PACKER) WBC 4.0 3.8 - 10.8 Thousand/u L [...] [facility] Blood 08/02/2024 7:41 AM MATTRESS PACKER 08/02/2024 7:42 AM MATTRESS PACKER Alee OSMAN LAB BLOOD ORDERABLES Final Result [facility] [address] [place] [address] * TSH (08/02/2024 7:41 AM MATTRESS PACKER) Pathologist [facility] TSH 1.57 0.40 - 4.50 mIU/L [facility] Blood 08/02/2024 7:41 AM MATTRESS PACKER 08/02/2024 7:42 AM MATTRESS PACKER Alee OSMAN LAB BLOOD ORDERABLES Final Result [facility] [address] [place] [address] * Hemoglobin A1c (08/02/2024 7:41 AM MATTRESS PACKER) Hgb A1C 5.4 <5.7 % of total Hgb [facility] Comment: For the purpose of screening for the presence of diabetes: <5.7% Consistent with the absence of diabetes 5.7-6.4% Consistent with increased risk for diabetes (prediabetes) > or =6.5% Consistent with diabetes This assay result is consistent with a decreased risk of diabetes. Currently, no consensus exists regarding use of hemoglobin A1c for diagnosis of diabetes in children. According to [place] Diabetes Association (ADA) guidelines, hemoglobin A1c <7.0% represents optimal control in non- diabetic patients. Different metrics may apply to specific patient populations. Standards of Medical Care in Diabetes(ADA). Blood 08/02/2024 7:41 AM MATTRESS PACKER 08/02/2024 7:42 AM MATTRESS PACKER Alee OSMAN LAB BLOOD ORDERABLES Final Result [facility] [address] [address] [place] [address] * Vitamin B12 (08/02/2024 7:41 AM MATTRESS PACKER) Vitamin B12 349 200 - 1,100 pg/mL [...] will have symptoms. Blood 08/02/2024 7:41 AM MATTRESS PACKER 08/02/2024 7:42 AM MATTRESS PACKER Alee OSMAN LAB BLOOD ORDERABLES Final Result [facility] [address] [place] [address] * Lipid panel (08/02/2024 7:41 AM MATTRESS PACKER) Cholesterol 127 <200 mg/dL [facility] [...] LDL-C. Barry SS et al. ELAINE. 2013;310(19): 7050-0882 (http://education.[employer]/faq/SNL882) Chol/HDL ratio 1.7 <5.0 (calc) [facility] Non-HDL, (LDL+VLDL) 52 <130 mg/dL (calc) [facility] Comment: For patients with diabetes plus 1 major ASCVD risk factor, treating to a non-HDL-C goal of <100 mg/dL (LDL-C of <70 mg/dL) is considered a therapeutic option. Blood 08/02/2024 7:41 AM MATTRESS PACKER 08/02/2024 7:42 AM MATTRESS PACKER us Alee OSMAN LAB BLOOD ORDERABLES Final Result [facility] [address] [place] [address] * Comprehensive metabolic panel (08/02/2024 7:41 AM MATTRESS PACKER) [facility] Glucose 99 65 - 99 mg/dL [...] [facility] Blood 08/02/2024 7:41 AM MATTRESS PACKER 08/02/2024 7:42 AM MATTRESS PACKER us Alee OSMAN LAB BLOOD ORDERABLES Final Result [facility] [address] [place] [address] * CBC with auto differential (07/30/2024 2:36 PM MATTRESS PACKER) WBC 6.4 3.8 - 10.8 Thousand/u L [...] [facility] Blood 07/30/2024 2:36 PM MATTRESS PACKER 07/30/2024 2:36 PM MATTRESS PACKER Sangita OSMAN LAB BLOOD ORDERABLES Vy l Result Performing Organization Address [facility] Co de Phone Number [facility] [address] [place] [address] * Erythrocyte sedimentation rate (07/30/2024 2:36 PM MATTRESS PACKER) Pathologist [facility] Erythrocyte sedimentation rate 11 < OR = 30 mm/h [facility] Blood 07/30/2024 2:36 PM MATTRESS PACKER 07/30/2024 2:36 PM MATTRESS PACKER Sangita OSMAN LAB BLOOD ORDERABLES Vy l Result Performing Organization Address [facility] Co de Phone Number [facility] [address] [place] [address] * CRP (acute phase) (07/30/2024 2:36 PM MATTRESS PACKER) C-RP <3.0 <8.0 mg/L [facility] Blood 07/30/2024 2:36 PM MATTRESS PACKER 07/30/2024 2:36 PM MATTRESS PACKER Sangita [facility] BLOOD ORDERABLES Vy suazo Result [facility] [address] [address] [address] * (ABNORMAL) Comprehensive metabolic panel (07/30/2024 2:36 PM MATTRESS PACKER) Glucose 115(H) 65 - 99 mg/dL [facility] [...] [facility] Blood 07/30/2024 2:36 PM MATTRESS PACKER 07/30/2024 2:36 PM MATTRESS PACKER Sangita [facility] BLOOD ORDERABLES Vy l Result [facility] [address] [place] [address] * XR Knee Right 3 Views (07/24/2024 1:35 PM MATTRESS PACKER) Anatomical Region Laterality Modality Lower Extremities, Knee Right Computed Radiography 07/25/2024 7:16 AM MATTRESS PACKER Narrative 07/25/2024 7:18 AM MATTRESS PACKER EXAM DESCRIPTION: XR KNEE RIGHT 3 VIEWS [...] Elton Jonas M.D. KR T: Report ID: [id number] Reading Location: [id number] Procedure Note Elton Jonas MD - 07/25/2024 [...] Elton Jonas M.D. KR T: Report ID: [id number] Reading Location: [place] [id number] Result [facility] Michael Motta MD IMG XR PROCEDURES Final Re sult * (ABNORMAL) Dexa Axial Skeleton Bone Density 1 or 2 Site (04/12/2023 8:14 AM CDT) Anatomical Region Laterality Modality Body N/A Radiographic Melanie ging Result [facility] Historical Provider IMG DXA PROCEDURES Edited Result - Final * Colonoscopy (07/27/2021) Anatomical Region Laterality Modality Other Result [facility] Historical Provider ENDOSCOPY PROCEDURES Vy l Result * Hepatitis C antibody (06/04/2020 10:29 AM MATTRESS PACKER) Hep C Ab NON-REACTI VE NON-REACT ALEXYS [facility] SIGNAL TO CUT-OFF 0.02 <1.00 [facility] Comment: HCV antibody was non-reactive. There is no laboratory evidence of HCV infection. In most cases, no further action is required. However, if recent HCV exposure is suspected, a test for HCV RNA (test code 19535) is suggested. For additional information please refer to http://education.[employer]/faq/MQO22e2 (This link is being provided for informational/ educational purposes only.) Blood specimen (specimen) 06/04/2020 10:29 AM MATTRESS PACKER 06/04/2020 10:30 AM MATTRESS PACKER Result [facility] Sangita OSMAN LAB MICROBIOLOGY - GENERA L ORDERABLES Final Result [email or web address] [id number] [address] [address] from Last 3 Months or Most Recently Relevant to Health Maintenance Insurance [facility] MEDICARE ADVANTAGE Advance Directives For more information, please contact: [phone] Documents on File Type Date Recorded Patient Tankage Supervisor Expl anation ADVANCE DIRECTIVE 05/17/2024 2:13 PM Yonis r of Knitting Demonstrator-Medical * Full Code (Latest Code Status on File) Date Activated Date Inactivated Comments 05/30/2024 12:38 PM 06/05/2024 6:31 PM * Full Code Date Activated Date Inactivated Comments 05/04/2023 2:33 PM 05/07/2023 3:07 AM * Full Code Date Activated Date Inactivated Comments 03/22/2021 4:39 PM 03/25/2021 6:17 PM Care Teams Loader Demolder Relationship Specialty Start Date End Date Alee Elizondo PA [address] [facility] [address] [place], [place] [id number] PCP - General Internal Medicine 07/05/23 Sharan Linton MD Referring Physician Gastroenterology 10/31/18 Martha Starks MD Consulting Physician Cardiology 12/24/20 Shama Hines MD [address] [facility], [facility] [address] [place] [address] Consulting Physician Pain Management 01/19/21 Artis Grewal MD [address] [place] [address] Consulting Physician Rheumatology 01/30/21 Amy Mayes NP [address] [facility] [address] [place] [address] Nurse Practitioner Cardiovascular Disease 04/20/24 Shailesh Dunn MD [address] [facility] [address] [address] [place] [address] Consulting Physician Pulmonary Disease 04/20/24 Sangita Farrar PA [address] [place] [address] Physician Wireless Engineer Rheumatology 05/15/24
--- OUTSIDE RECORDS SUMMARY | 2024-10-13 15:25 | XMS_ITS | Encounter Summary ---
Author Organization [facility] Address [address] [place] [address] Care Team Providers Care Merchandise For Resale Purchasing Agent Name Role Phone Sharan Linton MD Unavailable [phone] Martha Starks MD Unavailable [phone] Shama Hines MD Unavailable Artis Grewal MD Unavailable [phone] Alee Elizondo Primary Care Provider [phone] Amy Mayes NP Unavailable [phone] Shailesh Dunn MD Unavailable [phone] Sangita Farrar Unavailable [phone] Encounter Details Date Type Department Care Team (Late st Contact Info) Description 10/04/2024 Results Follow-Up [facility] Family Medicine [address] [place] [address] Alee Elizondo PA [address] [place] [address] [place] [address] Social History Tobacco Use Types Packs/Day Years Used Date Smoking Tobacco: Never Smokeless Tobacco: Never Comments:Never used Alcohol Use Standard Drinks/Week Comments No 0 (1 standard drink = 0.6 oz pur e alcohol) [facility] Utilities Answer Date Recorded In the past 12 months has [employer]ocy[employer], oil, or water [employer] threatened to shut off services in your [...] often do you attend chur ch or alevism services? 1 to 4 times per year 05/30/2024 Do you belong to any clubs o r organizations such as restorationist groups, unions, fraternal or athletic groups, or [...] in a prison (including now)? No 05/27/2023 PHQ-9 Answer Date [...] any time in the past 12 m [facility], were you homeless or living in [...] on file Legal Sex Female 8:04 PM SHUTTLE OPERATOR Gender Identity Female 02/15/2020 6:08 PM [...] on filedocumented in this encounter Care Teams Merchandise For Resale Purchasing Agent Relationship Specialty Start Date End Date Alee Elizondo PA [address] [facility] [address] [place] [address] PCP - General Internal Medicine 07/05/23 Sharan Linton MD Referring Physician Gastroenterology 10/31/18 Martha Starks MD Consulting Physician Cardiology 12/24/20 Shama Hines MD [address] [facility] [address] Consulting Physician Pain Management 01/19/21 Artis Grewal MD [address] [place] [address] Consulting Physician Rheumatology 01/30/21 Amy Mayes NP [address] [facility] [address] [place] [address] Nurse Practitioner Cardiovascular Disease 04/20/24 Shailesh Dunn MD [address] [address] Consulting Physician Pulmonary Disease 04/20/24 Sangita Farrar PA [address] [place] [address] Physician Maid Housekeeper Rheumatology 05/15/24 documented as of this encounter
--- NOTE | 2024-10-13 15:39 | ED_ITS ---
HPI - Female Genitourinary General Chief complaint: Urogenital-Female Stated complaint: LEAKING URINE WITH BANUELOS Time Seen by Provider: 10/13/24 15:16 Source: patient and old records reviewed Mode of arrival: ambulatory Limitations: no limitations History of Present Illness HPI Narrative: Patient is a 69 y/o female who presents the ED with report of Banuelos catheter problem. Patient has history of urinary retention. Seen in the ED here earlier this month and found to have a pelvic lipomatosis, thought to be likely the cause of retention. Has had Banuelos catheter for the past couple of weeks. States since last night, patient has been having intermittent bladder spasms and states the urine has been flowing out around the catheter tubing. She also reports she has had intermittent blood in her urine since . She reports some bladder/lower abdominal discomfort, L flank pain since today. Denies N/V, fevers. Patient reports remote history of kidney stones. Related Data Home Medications ?Medication ?Instructions ?Recorded ?Confirmed ?Last Taken ?Type aspirin 81 mg tablet,delayed 81 mg PO DAILY 06/20/19 02/29/24 12/11/23 History release (Adult Low Dose Aspirin) bupropion HCl 150 mg 24 hr tablet, 150 mg PO QAM 06/20/19 02/29/24 12/14/23 History extended release hydroxychloroquine 200 mg tablet 200 mg PO BID 06/20/19 02/29/24 12/13/23 20:00 History montelukast 10 mg tablet 10 mg PO QHS 06/20/19 02/29/24 12/08/23 History potassium chloride 10 mEq 10 meq PO DAILY 06/20/19 02/29/24 12/13/23 History tablet,extended release pravastatin 40 mg tablet 40 mg PO DAILY 06/20/19 02/29/24 12/13/23 20:00 History folic acid 1 mg tablet 2 mg PO DAILY 06/21/19 02/29/24 12/13/23 History duloxetine 60 mg capsule,delayed 60 mg PO DAILY 08/20/19 02/29/24 12/14/23 History release calcium carb-ergocalciferol (vit 1 tablet PO BID 03/08/21 02/29/24 12/08/23 History D2) 600 mg calcium-200 unit tablet cholecalciferol (vitamin D3) 125 125 mcg PO DAILY 03/08/21 02/29/24 12/08/23 History mcg (5,000 unit) tablet (Vitamin D3) cyclobenzaprine 5 mg tablet 5 mg PO TID PRN Muscle spasms 03/08/21 02/29/24 12/08/23 History docusate sodium 100 mg capsule 200 mg PO BID 03/08/21 02/29/24 12/08/23 History (Colace) ropinirole 0.5 mg tablet 1 mg PO HS 07/14/21 02/29/24 12/13/23 20:00 History abatacept 125 mg/mL subcutaneous 125 mg subcut WEEKLY 07/22/23 02/29/24 Unknown History syringe (Orencia) bumetanide 1 mg tablet 1 mg PO BID 07/22/23 02/29/24 12/13/23 History clobetasol 0.05 % lotion (Clobex) 1 applic topical BID PRN Itching 07/22/23 02/29/24 12/03/23 History gabapentin 100 mg capsule 200 mg PO BID 07/22/23 02/29/24 12/13/23 20:00 History tramadol 50 mg tablet 50 mg PO Q6H PRN Pain 07/22/23 02/29/24 12/08/23 History methotrexate sodium 2.5 mg tablet 17.5 mg PO WEEKLY 12/05/23 02/29/24 12/07/23 History cetirizine 10 mg capsule (Zyrtec) 10 mg PO DAILY PRN 09/18/24 Unknown History oxycodone-acetaminophen 5 mg-325 1 tablet PO Q6H PRN 09/18/24 Unknown History mg tablet rosuvastatin 10 mg tablet 10 mg PO 09/18/24 Unknown History Allergies Allergy/AdvReac Type Severity Reaction Status Date / Time meperidine Allergy Severe HIVES Verified 10/13/24 15:00 Penicillins Allergy Severe RASH Verified 10/13/24 15:00 hydrocodone Allergy Intermediate HIVES Verified 10/13/24 15:00 Review of Systems 2 Review of Systems: All systems reviewed & are unremarkable except as noted in HPI. All systems reviewed & are unremarkable except as noted in HPI and below PMFSH Past Medical History Medical History Obese Arthritis OWEN (obstructive sleep apnea) GERD (gastroesophageal reflux disease) Kidney stones Depression Angina of effort Asthma Hyperlipidemia CAD (coronary atherosclerotic disease) H/O: HTN (hypertension) Moderate persistent asthma without complication Obstructive sleep apnea (adult) (pediatric) Rhinitis Surgical History Surgical History H/O dilation and curettage History of lithotripsy History of hysterectomy History of repair of hiatal hernia Laparoscopic repair hiatal hernia, laparoscopic Leonor fundoplication 12/14/23 History of left knee replacement History of cholecystectomy S/P appy Family History Family History Mother Chronic HF (heart failure) Family history of diabetes mellitus in first degree relative Cerebrovascular accident Father Family history of malignant neoplasm of kidney Family history of liver disease Carcinoma of colon Atrial fibrillation Other Acute myocardial infarction Asthma Diabetes mellitus Family history of arthritis Family history of cardiovascular disease Family history of chronic obstructive pulmonary disease Family history of congestive heart failure Hypertension Malignant neoplasm of prostate Social History Social History Smoking status: Never smoker Alcohol intake: never Substance use: never Substance use type: does not use Do You Feel Safe in your Home?: Yes Lack of Transportation: No Lack of Food: Never True Current Housing: I Have Housing Concerned About Future Housing: No Difficulty Paying Gas/Electric Bills: No Difficulty Paying for Meds: No Currently Unemployed: No Education: High School Diploma/GED Difficulty w/ Childcare or Family Care: No Living arrangements: alone Spiritual care concerns: No Exam 2 Narrative: GENERAL: Well appearing, obese with BMI of 35.8, non-toxic, in no acute distress. HEAD: Normocephalic, atraumatic. RESPIRATORY: Airway patent, respirations nonlabored. Clear to auscultation bilaterally, no rales, rhonchi, wheezing. CARDIOVASCULAR: Regular rate and rhythm without murmurs, rubs, or gallops. ABDOMINAL: Soft, mild tenderness palpation over lower abdomen, suprapubic region. Nondistended. Normoactive BS. Mild tenderness to palpation on left CVA region. MUSCULOSKELETAL: Moves all extremities. No gross deformities. Congenital deformity of LUE. Banuelos catheter leg bag present draining light brown urine. SKIN: Warm, dry, normal color. NEURO: A&O X3. Speech clear. PSYCHIATRIC: Appropriate mood and affect. Normal interaction. Course Vital Signs Vital signs: Vital Signs Temperature 97.8 F 10/13/24 15:02 Pulse Rate 102 H 10/13/24 15:02 Respiratory Rate 14 10/13/24 15:02 Blood Pressure 144/65 H 10/13/24 15:02 Pulse Oximetry 98 10/13/24 15:02 Oxygen Delivery Room Air 10/13/24 15:02 Temperature 97.8 F 10/13/24 15:02 Pulse Rate 80 10/13/24 20:10 Respiratory Rate 18 10/13/24 20:10 Blood Pressure 115/49 L 10/13/24 20:10 Pulse Oximetry 97 10/13/24 20:10 Oxygen Delivery Room Air 10/13/24 15:02 MDM - Female Genitourinary MDM Narrative Medical decision making narrative: Patient presented to ED with Banuelos catheter malfunction, pain, hematuria. Patient with recently diagnosed urinary retention related to pelvic lipomatosis. Reporting urine has been draining around catheter tubing since last night. Vital signs are stable upon arrival. Afebrile. Patient is in no acute distress. Banuelos catheter was successfully replaced in the ED. Patient feeling significantly better after replacement. No further leakage. UA concerning for infection, nitrate positive, 2+ leuks, >100 RBC, 21-50 WBC. Sent for cx. Will treat. Given dose of rocephin in the ED. Previous urine culture from earlier this month positive for E.coli, gaitan sensitive. Laboratory studies without leukocytosis. Stable H&H. Kidney function is stable. CT abd/pelvis obtained and fairly unremarkable. Does show bilateral renal stones, no ureterolithiasis. Discussed lab and imaging findings with patient, need for antibiotics. She is in agreement with plan. Feels comfortable going home. Again, she reports feeling significantly better since having her catheter replaced. Advised close follow-up with Urology/PCP for further evaluation. Discussed return precautions, patient voiced understanding. Discharged in stable condition. Vital signs stable at time of D/C. Medical Records Attestation: I reviewed the patient's medical records. Lab Data Attestation: I reviewed the patient's lab results. 10/13/24 16:55 10/13/24 16:55 Labs: Lab Results 10/13/24 10/13/24 Range/Units 16:25 16:55 WBC 4.7 (4.5-10.0) K/mm3 RBC 3.85 L (4.2-5.4) M/mm3 Hgb 12.4 (12.0-15.0) g/dL Hct 37.2 (37.0-47.0) % MCV 96.6 (80-100) fl MCH 32.2 (26-34) pg MCHC 33.3 (32-36) g/dl RDW 15.5 H (11.5-14.5) % Plt Count 216 (150-375) k/mm3 MPV 9.6 (7.4-10.4) fl Immature Gran % (Auto) 0.4 (0-0.5) % Neut % (Auto) 62.0 (45.5-73.1) % Lymph % (Auto) 23.9 (18.3-44.2) % Keith % (Auto) 9.7 H (2.6-8.5) % Eos % (Auto) 3.4 (0-4.4) % Baso % (Auto) 0.6 (0.2-1.2) % Lymph # (Auto) 1.13 (0.9-3.2) K/mm3 Keith # (Auto) 0.5 (0.1-0.6) K/mm3 Eos # (Auto) 0.2 (0-0.3) K/mm3 Baso # (Auto) 0.0 (0.0-0.1) K/mm3 Abs Immat Gran (auto) 0.02 (0.00-0.031) K/mm3 Absolute Neuts (auto) 2.9 (1.3-6.7) K/mm3 Absolute Nucleated RBC 0.000 (0.0-0.012) K/mm3 Nucleated RBC % 0.0 (0.0-0.2) % Sodium 137 (137-145) mmol/L Potassium 4.7 (3.4-5.0) mmol/L Chloride 111 H (98-107) mmol/L Carbon Dioxide 19 L (22-30) mmol/L Anion Gap 7 (4-12) mmol/L BUN 13 (7-17) mg/dL Creatinine 0.68 L (0.7-1.0) mg/dL Estim Creat Clear Calc 67 ml/min Estimated GFR > 60 (59 - ) Glucose 119 H (65-110) mg/dL Calcium 9.0 (8.4-10.2) mg/dL Total Bilirubin 0.9 (0.2-1.3) mg/dL AST 37 H (14-36) U/L ALT 22 (6-35) U/L Alkaline Phosphatase 96 (38-126) U/L Total Protein 7.0 (6.3-8.2) g/dL Albumin 3.8 (3.5-5.1) g/dL Urine Color Mariya (Yellow) Urine Appearance Turbid H (Clear) Urine pH 5.0 (5.0-9.0) Ur Specific [place] 1.019 (1.001-1.035) Urine Protein 2+ H (Negative) mg/dL Urine Glucose (UA) Negative (Negative) mg/dL Urine Ketones Negative (Negative) mg/dL Ur Blood (Man) 2+ H (Negative) Urine Nitrate Positive H (Negative) Urine Bilirubin 1+ H (Negative) Urine Urobilinogen 1.0 (<2.0) mg/dL Add Ur Microanalysis Reviewed Leukocyte Esterase Rfl 2+ H (Negative) JACQUELYN/UL Urine RBC >100 H (0-2) /hpf Urine WBC 21-50 H (0-3) /hpf Ur Squamous Epith Cells Many H (Few) /hpf Urine Bacteria None seen /hpf Urine Casts 3-5 Imaging Data Attestation: I personally reviewed and interpreted this imaging study as follows: Radiologist's impression: ITS Impressions Abdomen/Pelvis CT 10/13/24 19:17 IMPRESSION: 1. No evidence of appendicitis, diverticulitis or intestinal torsion. 2. Bilateral tiny kidney stones. Left kidney parenchymal calcification is also possible. 3. Pelvic lipomatosis. 4. Constipation. Discharge Plan Discharge Clinical Impression: UTI (urinary tract infection) Qualifiers: Urinary tract infection type: catheter-associated UTI Indwelling urinary catheter type: indwelling urethral catheter Encounter type: initial encounter Q ualified Code(s): T83.511A - Infection and inflammatory reaction due to indwelling urethral catheter, initial encounter Malfunction of Banuelos catheter Qualifiers: Encounter type: initial encounter Qualified Code(s): T83.011A - Breakdown (mechanical) of indwelling urethral catheter, initial encounter Patient Disposition: Home Condition: Stable Instructions: Antibiotic Form, Urinary Tract Infection in Women (ED), Banuelos Catheter Placement and Care (ED) Additional Instructions: Take antibiotics as prescribed for urinary tract infection. Stay well hydrated. Follow-up with your primary care doctor and Urology for further evaluation. Return to the ED if you experience worsening or severe pain, worsening blood in urine, unable to keep down food or drink, fevers, or any other symptoms of concern. Patient Language: Kenyan Prescriptions: New cephalexin 500 mg capsule 500 mg PO Q6H 7 Days Qty: 28 0RF No Action duloxetine 60 mg capsule,delayed release(DR/EC) 60 mg PO DAILY pravastatin 40 mg tablet 40 mg PO DAILY potassium chloride 10 mEq tablet extended release 10 meq PO DAILY montelukast 10 mg tablet 10 mg PO QHS hydroxychloroquine 200 mg tablet 200 mg PO BID bupropion HCl 150 mg tablet extended release 24 hr 150 mg PO QAM aspirin [Adult Low Dose Aspirin] 81 mg tablet,delayed release (DR/EC) 81 mg PO DAILY folic acid 1 mg tablet 2 mg PO DAILY nystatin 100,000 unit/gram powder 1 applic topical BID Qty: 60 0RF Zyrtec 10 mg capsule 10 mg PO DAILY PRN oxycodone-acetaminophen 5-325 mg tablet 1 tablet PO Q6H PRN rosuvastatin 10 mg tablet 10 mg PO lidocaine 5 % adhesive patch,medicated 1 patch topical DAILY Qty: 15 0RF Rx Instructions: leave on most painful area for up to 12 hrs. do not use more than 1 patch in a 24-hour period. cefuroxime axetil 500 mg tablet 500 mg PO BID Qty: 10 0RF cefuroxime axetil 500 mg tablet 500 mg PO BID Qty: 14 0RF docusate sodium [Colace] 100 mg Capsule 200 mg PO BID calcium carbonate-vitamin D2 600 mg calcium- 200 unit Tablet 1 tablet PO BID cyclobenzaprine 5 mg Tablet 5 mg PO TID PRN (Reason: Muscle spasms) cholecalciferol (vitamin D3) [Vitamin D3] 125 mcg (5,000 unit) Tablet 125 mcg PO DAILY ropinirole 0.5 mg Tablet 1 mg PO HS bumetanide 1 mg tablet 1 mg PO BID gabapentin 100 mg capsule 200 mg PO BID Patient Comments: TAKES 400MG AT HS clobetasol [Clobex] 0.05 % Lotion 1 applic TOPICAL BID PRN (Reason: Itching) Rx Instructions: apply to scalp tramadol 50 mg tablet 50 mg PO Q6H PRN (Reason: Pain) Orencia 125 mg/mL Syringe 125 mg SUBCUT WEEKLY Patient Comments: Tuesday' methotrexate sodium 2.5 mg tablet 17.5 mg PO WEEKLY Patient Comments: TAKES ON WEDNESDAYS Linzess 290 mcg capsule See Rx Instructions .ROUTE .COMPLEX Qty: 30 11RF Dose Instruction: TAKE 1 CAPSULE BY MOUTH EVERY DAY Rx Instructions: TAKE 1 CAPSULE BY MOUTH EVERY DAY fluconazole 150 mg tablet 150 mg PO Q72H Qty: 2 0RF Rx Instructions: as a single dose Follow-up/Referrals: Mikhail,JACQUI Vickers [Primary Care Provider] - Time of Disposition: 19:58
[2024-10-13 16:42] LABS: Bacteria Urine None Seen /hpf; Need Manual Microscopic Reviewed; RBC Urine >100 /hpf (0-2); Squamous Epithelial Cell Urine Many /hpf (Few); WBC Urine 21-50 /hpf (0-3)
[2024-10-13 16:44] LABS: Add Urine Microscopic? YES; Appearance Urine Turbid (Clear); Bilirubin Urine 1+ (Negative); Blood Urine 2+ (Negative); Color Urine Amber (Yellow); Glucose Urine UA Negative (Negative); Ketones Urine Negative (Negative); Leukocyte Esterase Ur 2+ LEU/UL (Negative); Nitrate Urine Positive (Negative); Protein Urine 2+ mg/dL (Negative); Specific Grav Ur 1.019 (1.001-1.035)
[2024-10-13 17:00] LABS: Basophils Percent Auto 0.6 % (0.2-1.2); Eosinophils Absolute Auto 0.2 K/mm3 (0-0.3); Eosinophils Percent Auto 3.4 % (0-4.4); Hematocrit 37.2 % (37.0-47.0); Hemoglobin 12.4 g/dL (12.0-15.0); Immature Granulocyte Absolute 0.02 K/mm3 (0.00-0.031); Immature Granulocyte Percent A 0.4 % (0-0.5); Lymphocytes Absolute Auto 1.13 K/mm3 (0.9-3.2); Lymphocytes Percent Auto 23.9 % (18.3-44.2); Mean Corpuscular HGB Conc 33.3 g/dl (32-36); Mean Corpuscular Hemoglobin 32.2 pg (26-34); Mean Corpuscular Volume 96.6 fl (80-100); Mean Platelet Volume 9.6 fl (7.4-10.4); Monocytes Absolute Auto 0.5 K/mm3 (0.1-0.6); Monocytes Percent Auto 9.7 % (2.6-8.5); Neutrophils Absolute Auto 2.9 K/mm3 (1.3-6.7); Platelet Count Result 216 k/mm3 (150-375); Red Blood Count 3.85 M/mm3 (4.2-5.4); Red Cell Distribution Width 15.5 % (11.5-14.5); White Blood Count 4.7 K/mm3 (4.5-10.0)
[2024-10-13 17:57] VITALS: BP 93/56; PULSE 82; RESP 18; O2SAT 98
[2024-10-13 18:20] LABS: Alanine Aminotransferase 22 U/L (6-35); Albumin Level 3.8 g/dL (3.5-5.1); Alkaline Phosphatase 96 U/L (38-126); Anion Gap 7 mmol/L (4-12); Aspartate Amino Transferase 37 U/L (14-36); Bilirubin,Total 0.9 mg/dL (0.2-1.3); Blood Urea Nitrogen 13 mg/dL (7-17); Carbon Dioxide 19 mmol/L (22-30); Chloride 111 mmol/L (98-107); Estimated CRCL calculation 67 ml/min; Estimated Glomerular Filt Rate > 60; Glucose 119 mg/dL (65-110); Potassium 4.7 mmol/L (3.4-5.0); Sodium 137 mmol/L (137-145)
[2024-10-13 20:10] VITALS: BP 115/49; PULSE 80; RESP 18; O2SAT 97
--- NOTE | 2024-10-13 20:55 | PC.NURSE ---
upon discharge this rn removed agosto bag and placed a leg bag on patient for patient comfort. Upon bag change, urine output continued. pt was able to ambulate with a steady unassisted gait towards the exit of the ed. pt was sent home with the 2L agosto bag and was educated on correct use and care of agosto catheter and UBag.
== END 2024-10-13 20:26 | disposition home or self-care (01) ==
PROVIDERS: Emergency Provider Physician Assistant; PCP Physician Assistant
DX: T83.031A Leakage of indwelling urethral catheter, initial encounter (principal); T83.511A Infection and inflammatory reaction due to indwelling urethral catheter, initial encounter; E88.2 Lipomatosis, not elsewhere classified; I10 Essential (primary) hypertension; J45.40 Moderate persistent asthma, uncomplicated; E78.5 Hyperlipidemia, unspecified; K21.9 Gastro-esophageal reflux disease without esophagitis; M19.90 Unspecified osteoarthritis, unspecified site; F32.A Depression, unspecified; Z96.652 Presence of left artificial knee joint; Z87.442 Personal history of urinary calculi; Z90.710 Acquired absence of both cervix and uterus; Z90.49 Acquired absence of other specified parts of digestive tract; K59.00 Constipation, unspecified; N20.0 Calculus of kidney; Y84.6 Urinary catheterization as the cause of abnormal reaction of the patient, or of later complication, without mention of misadventure at the time of the procedure; Z79.82 Long term (current) use of aspirin; Z79.620 Long term (current) use of immunosuppressive biologic; Z79.899 Other long term (current) drug therapy
CPT/HCPCS: 36415; 74176; 80053; 81001; 85025; 87086; 96365; 99284; J0696

== ENCOUNTER 2024-11-05 15:06 | Emergency (ER) | payer MEDICARE, SELFPAY ==
--- NOTE | ~2024-11-05 | CT_ITS ---
CLINICAL INDICATION: Left flank pain COMPARISON: 10/13/2024. TECHNIQUE: Multiple contiguous axial images of the abdomen and pelvis were performed without the admi nistration of intravenous contrast The dose-length product (DLP) was 446.95 mGy-cm. Automated exposure control and iterative reconstruction technique were employed. FINDINGS/OBSERVATIONS: Visualized lower thorax: The bilateral lung bases are clear. The heart is of normal size, without pericardial effusion. Small hiatal hernia is present. Liver: Large hemangioma within the caudate lobe of the liver, unchanged from prior with a bulky calci fication at its base. Punctate calcifications are identified within the hepatic parenchyma, suggesting prior granulomatous disease. The remainder of the liver otherwise demonstrates homogeneous attenuation and is not enlarged. Gallbladder and biliary system: The gallbladder is surgically absent. Pancreas: Limited evaluation of the pancreas secondary to the lack of intravenous contrast, although fatty atro phy is present. Spleen: Punctate calcifications identified within the splenic parenchyma, suggesting prior granulomat ous disease. The remainder of the spleen otherwise demonstrates homogeneous attenuation and is not enlarged. Kidneys: Multiple nonobstructing stones are identified within the lower pole of the left kidney, unch anged from prior. Redemonstration of a well-circumscribed focus of fluid attenuation interpolar region of the right kid radha, statistically a cyst. Redemonstration of a 2 mm calculus within the lower pole of the right kidney, unchanged from prior. The remainder of the bilateral kidneys are otherwise unremarkable, without hydronephrosis or addition al renal calculi. Adrenal glands: Unremarkable. Gastrointestinal tract: Pelvic lipomatosis is redemonstrated Fluid distended loops of colon are identified, consistent with patient's presenting symptoms. Appendix: The appendix is not definitively visualized. However, no pericecal inflammatory change is identified suggest the presence of acute appendicitis. Vasculature: Unremarkable. Lymph nodes: Limited evaluation without intravenous contrast. Pelvic structures: The bladder is distended, and otherwise unremarkable. The uterus is either atrophic or surgically absent. Body wall and musculoskeletal: Small fat-containing umbilical hernia. Age-appropriate degenerative disease within the lumbosacral spine IMPRESSION: Redemonstration of multiple nonobstructing renal calculi. Findings consistent with prior granulomatous disease. No acute findings within the abdomen or pelvis, as detailed above. Reviewed, dictated and finalized at location A.
[2024-11-05 15:17] VITALS: BP 131/58; PULSE 85; RESP 18; TEMP 36.4; O2SAT 98
--- NOTE | 2024-11-05 15:37 | ED_ITS ---
HPI - Female Genitourinary General Chief complaint: Urogenital-Female <Stacie Oliva PA-C - Last Filed: 11/07/24 09:18> Stated complaint: sent by PCP bladder and kidney issues <Stacie Oliva PA-C - Last Filed: 11/07/24 09:18> Time Seen by Provider: 11/05/24 15:37 <Stacie Oliva PA-C - Last Filed: 11/07/24 09:18> Focused HPI: This is a 69 year old female that presents to the ER for left flank pain which started this morning when she woke up. Reports history of kidney stones. Reports her urologist is Dr. Marcos. Reports dysuria. Denies fever, vomiting, hematuria. GENERAL: Uncomfortable, well-nourished, and in no acute distress. HEAD: Normocephalic, atraumatic. CHEST: Clear to auscultation. ?No respiratory distress. HEART: Regular rate and rhythm.? NEURO: ?Alert and oriented x3. Patient screened in triage and initial orders placed.? ?Additional care and disposition to be based upon?diagnostic testing and treatment. <Stacie Oliva PA-C - Last Filed: 11/07/24 09:18> History of Present Illness HPI Narrative: 69-year-old with history of hypertension, GERD, OWEN presents to emergency department for left flank pain and left lower abdominal pain and suprapubic abdominal pain that started this morning. Patient reports a history of kidney stones. She denies dysuria or hematuria, vomiting, fever, injury or trauma. Is endorsing nausea and is concerned she is not emptying her bladder fully. Is endorsing difficulty starting her stream. Patient has a history of pelvic lipomatosis demonstrating mass effect on her bladder and rectum which is caused urinary retention in the past. She has followed up with [facility] in [place] was told there was nothing to do about this. She is scheduled to see Dr. Marcos in December for further follow-up. <Viola Milan PA-C - Last Filed: 11/05/24 21:26> Related Data Home medications: Home Medications ?Medication ?Instructions ?Recorded ?Confirmed ?Last Taken ?Type aspirin 81 mg tablet,delayed 81 mg PO DAILY 06/20/19 02/29/24 12/11/23 History release (Adult Low Dose Aspirin) bupropion HCl 150 mg 24 hr tablet, 150 mg PO QAM 06/20/19 02/29/24 12/14/23 History extended release hydroxychloroquine 200 mg tablet 200 mg PO BID 06/20/19 02/29/24 12/13/23 20:00 History montelukast 10 mg tablet 10 mg PO QHS 06/20/19 02/29/24 12/08/23 History potassium chloride 10 mEq 10 meq PO DAILY 06/20/19 02/29/24 12/13/23 History tablet,extended release pravastatin 40 mg tablet 40 mg PO DAILY 06/20/19 02/29/24 12/13/23 20:00 History folic acid 1 mg tablet 2 mg PO DAILY 06/21/19 02/29/24 12/13/23 History duloxetine 60 mg capsule,delayed 60 mg PO DAILY 08/20/19 02/29/24 12/14/23 History release calcium carb-ergocalciferol (vit 1 tablet PO BID 03/08/21 02/29/24 12/08/23 History D2) 600 mg calcium-200 unit tablet cholecalciferol (vitamin D3) 125 125 mcg PO DAILY 03/08/21 02/29/24 12/08/23 History mcg (5,000 unit) tablet (Vitamin D3) cyclobenzaprine 5 mg tablet 5 mg PO TID PRN Muscle spasms 03/08/21 02/29/24 12/08/23 History docusate sodium 100 mg capsule 200 mg PO BID 03/08/21 02/29/24 12/08/23 History (Colace) ropinirole 0.5 mg tablet 1 mg PO HS 07/14/21 02/29/24 12/13/23 20:00 History abatacept 125 mg/mL subcutaneous 125 mg subcut WEEKLY 07/22/23 02/29/24 Unknown History syringe (Orencia) bumetanide 1 mg tablet 1 mg PO BID 07/22/23 02/29/24 12/13/23 History clobetasol 0.05 % lotion (Clobex) 1 applic topical BID PRN Itching 07/22/23 02/29/24 12/03/23 History gabapentin 100 mg capsule 200 mg PO BID 01/02/29/24 12/13/23 20:00 History tramadol 50 mg tablet 50 mg PO Q6H PRN Pain 07/22/23 02/29/24 12/08/23 History methotrexate sodium 2.5 mg tablet 17.5 mg PO WEEKLY 12/05/23 02/29/24 12/07/23 History cetirizine 10 mg capsule (Zyrtec) 10 mg PO DAILY PRN 09/18/24 Unknown History oxycodone-acetaminophen 5 mg-325 1 tablet PO Q6H PRN 09/18/24 Unknown History mg tablet rosuvastatin 10 mg tablet 10 mg PO 09/18/24 Unknown History <Stacie Oliva PA-C - Last Filed: 11/07/24 09:18> Allergies/Adverse reactions: Allergies Allergy/AdvReac Type Severity Reaction Status Date / Time meperidine Allergy Severe HIVES Verified 11/05/24 15:07 Penicillins Allergy Severe RASH Verified 11/05/24 15:07 hydrocodone Allergy Intermediate HIVES Verified 11/05/24 15:07 <Stacie Oliva PA-C - Last Filed: 11/07/24 09:18> Review of Systems 2 Review of Systems: All systems reviewed & are unremarkable except as noted in HPI and below <Viola Milan PA-C - Last Filed: 11/05/24 21:26> [facility] Past Medical History Medical History: Medical History Obese Arthritis OWEN (obstructive sleep apnea) GERD (gastroesophageal reflux disease) Kidney stones Depression Angina of effort Asthma Hyperlipidemia CAD (coronary atherosclerotic disease) H/O: HTN (hypertension) Moderate persistent asthma without complication Obstructive sleep apnea (adult) (pediatric) Rhinitis <Stacie Oliva PA-C - Last Filed: 11/07/24 09:18> Surgical History Surgical History: Surgical History H/O dilation and curettage History of lithotripsy History of hysterectomy History of repair of hiatal hernia Laparoscopic repair hiatal hernia, laparoscopic Leonor fundoplication 12/14/23 History of left knee replacement History of cholecystectomy S/P appy <Stacie Oliva PA-C - Last Filed: 11/07/24 09:18> Family History Family History: Family History Mother Chronic HF (heart failure) Family history of diabetes mellitus in first degree relative Cerebrovascular accident Father Family history of malignant neoplasm of kidney Family history of liver disease Carcinoma of colon Atrial fibrillation Other Acute myocardial infarction Asthma Diabetes mellitus Family history of arthritis Family history of cardiovascular disease Family history of chronic obstructive pulmonary disease Family history of congestive heart failure Hypertension Malignant neoplasm of prostate <Stacie Oliva PA-C - Last Filed: 11/07/24 09:18> Social History Social History: Social History Smoking status: Never smoker Alcohol intake: never Substance use: never Substance use type: does not use Do You Feel Safe in your Home?: Yes Lack of Transportation: No Lack of Food: Never True Current Housing: I Have Housing Concerned About Future Housing: No Difficulty Paying Gas/Electric Bills: No Difficulty Paying for Meds: No Currently Unemployed: No Education: High School Diploma/GED Difficulty w/ Childcare or Family Care: No Living arrangements: alone Spiritual care concerns: No <Stacie Oliva PA-C - Last Filed: 11/07/24 09:18> Exam 2 Narrative: GENERAL: Well-appearing, well-nourished, and in no acute distress. HEAD: Normocephalic, atraumatic. EYES: EOMI. ENT: Nares clear, no rhinorrhea or epistaxis. Mucous membranes moist. NECK: Supple. CHEST: Clear to auscultation. No respiratory distress. HEART: Regular rate and rhythm. No murmur heard. Normal peripheral pulses. ABDOMEN: Soft, nontender, nondistended, normal active bowel sounds. No rebound, guarding or rigidity. Left-sided CVA tenderness EXTREMITIES: Normal range of motion. No edema. SKIN: Warm, dry, no rash. NEURO: No focal deficits. Alert and oriented x3 <Viola Milan PA-C - Last Filed: 11/05/24 21:26> Course CLOCK AND WATCH HANDS PAINTER/PA Physician Supervision I agree with midlevel documentation; I performed the medical decision making component of this evaluation. <Kristina Olivarez MD - Last Filed: 11/06/24 02:43> Vital Signs Vital signs: Vital Signs Temperature 97.6 F 11/05/24 15:17 Pulse Rate 85 11/05/24 15:17 Respiratory Rate 18 11/05/24 15:17 Blood Pressure 131/58 L 11/05/24 15:17 Pulse Oximetry 98 11/05/24 15:17 Temperature 98.1 F 11/05/24 22:55 Pulse Rate 80 11/05/24 22:55 Respiratory Rate 16 11/05/24 22:55 Blood Pressure 112/51 L 11/05/24 22:55 Pulse Oximetry 94 11/05/24 22:55 <Stacie Oliva PA-C - Last Filed: 11/07/24 09:18> Vital Signs Temperature 97.6 F 11/05/24 15:17 Pulse Rate 85 11/05/24 15:17 Respiratory Rate 18 11/05/24 15:17 Blood Pressure 131/58 L 11/05/24 15:17 Pulse Oximetry 98 11/05/24 15:17 Temperature 98.1 F 11/05/24 22:55 Pulse Rate 80 11/05/24 22:55 Respiratory Rate 16 11/05/24 22:55 Blood Pressure 112/51 L 11/05/24 22:55 Pulse Oximetry 94 11/05/24 22:55 <Viola Milan PA-C - Last Filed: 11/05/24 21:26> Vital Signs Temperature 97.6 F 11/05/24 15:17 Pulse Rate 85 11/05/24 15:17 Respiratory Rate 18 11/05/24 15:17 Blood Pressure 131/58 L 11/05/24 15:17 Pulse Oximetry 98 11/05/24 15:17 Temperature 98.1 F 11/05/24 22:55 Pulse Rate 80 11/05/24 22:55 Respiratory Rate 16 11/05/24 22:55 Blood Pressure 112/51 L 11/05/24 22:55 Pulse Oximetry 94 11/05/24 22:55 <Kristina Olivarez MD - Last Filed: 11/06/24 02:43> MDM - Female Genitourinary MDM Narrative Medical decision making narrative: 69-year-old female presents emergency department for left flank pain that wraps to the left abdomen and suprapubic region that started this morning. Triage vitals are stable. Patient is afebrile and nontoxic appearing resting comfortably in exam bed. Exam is remarkable for left-sided CVA tenderness. Abdomen is soft and nontender. CBC with mild leukopenia of 4.2. Chemistries with mildly elevated creatinine of 1.01 and BUN of 18, fluids provided. AST chronically elevated. Lipase within normal limits. UA without hematuria or UTI. CT abdomen pelvis shows IMPRESSION: Redemonstration of multiple nonobstructing renal calculi. Findings consistent with prior granulomatous disease. No acute findings within the abdomen or pelvis, as detailed above. Patient updated on results. She received IV fluids, morphine, Toradol and Zofran with improvement. On re-evaluation she is resting comfortably in exam bed. Postvoid bladder scan is normal, she is not retaining. Will treat as MSK etiology with Tylenol and Flexeril and have her follow-up closely with her PCP. Discussed strict ED return precautions. She is agreeable to plan verbalized understanding. Discharged in stable condition. <Viola Milan PA-C - Last Filed: 11/05/24 21:26> Lab Data Result diagrams: 11/05/24 19:24 11/05/24 19:24 <Stacie Oliva PA-C - Last Filed: 11/07/24 09:18> Labs: Lab Results 11/05/24 11/05/24 Range/Units 17:06 19:24 WBC 4.2 L (4.5-10.0) K/mm3 RBC 3.52 L (4.2-5.4) M/mm3 Hgb 11.5 L (12.0-15.0) g/dL Hct 35.6 L (37.0-47.0) % MCV 101.1 H (80-100) fl MCH 32.7 (26-34) pg MCHC 32.3 (32-36) g/dl RDW 15.3 H (11.5-14.5) % Plt Count 209 (150-375) k/mm3 MPV 10.5 H (7.4-10.4) fl Immature Gran % (Auto) 0.5 (0-0.5) % Neut % (Auto) 65.2 (45.5-73.1) % Lymph % (Auto) 23.6 (18.3-44.2) % [place] % (Auto) 6.9 (2.6-8.5) % Eos % (Auto) 3.1 (0-4.4) % Baso % (Auto) 0.7 (0.2-1.2) % Lymph # (Auto) 0.99 (0.9-3.2) K/mm3 [place] # (Auto) 0.3 (0.1-0.6) K/mm3 Eos # (Auto) 0.1 (0-0.3) K/mm3 Baso # (Auto) 0.0 (0.0-0.1) K/mm3 Abs Immat Gran (auto) 0.02 (0.00-0.031) K/mm3 Absolute Neuts (auto) 2.7 (1.3-6.7) K/mm3 Absolute Nucleated RBC 0.000 (0.0-0.012) K/mm3 Nucleated RBC % 0.0 (0.0-0.2) % Sodium 140 (137-145) mmol/L Potassium 3.8 (3.4-5.0) mmol/L Chloride 107 (98-107) mmol/L Carbon Dioxide 24 (22-30) mmol/L Anion Gap 9 (4-12) mmol/L BUN 18 H (7-17) mg/dL Creatinine 1.01 H (0.7-1.0) mg/dL Estim Creat Clear Calc 46 ml/min Estimated GFR 54 L (59 - ) Glucose 78 (65-110) mg/dL Calcium 9.1 (8.4-10.2) mg/dL Total Bilirubin 0.7 (0.2-1.3) mg/dL AST 44 H (14-36) U/L ALT 35 (6-35) U/L Alkaline Phosphatase 132 H (38-126) U/L Total Protein 7.0 (6.3-8.2) g/dL Albumin 4.0 (3.5-5.1) g/dL Lipase 21 L (23-300) U/L Urine Color Yellow (Yellow) Urine Appearance Clear (Clear) Urine pH 5.5 (5.0-9.0) Ur Specific [place] 1.008 (1.001-1.035) Urine Protein Negative (Negative) mg/dL Urine Glucose (UA) Negative (Negative) mg/dL Urine Ketones Negative (Negative) mg/dL Ur Blood (Man) Negative (Negative) Urine Nitrate Negative (Negative) Urine Bilirubin Negative (Negative) Urine Urobilinogen 0.2 (<2.0) mg/dL Leukocyte Esterase Rfl Negative (Negative) JACQUELYN/UL <Stacie Oliva PA-C - Last Filed: 11/07/24 09:18> Lab Results 11/05/24 11/05/24 Range/Units 17:06 19:24 WBC 4.2 L (4.5-10.0) K/mm3 RBC 3.52 L (4.2-5.4) M/mm3 Hgb 11.5 L (12.0-15.0) g/dL Hct 35.6 L (37.0-47.0) % MCV 101.1 H (80-100) fl MCH 32.7 (26-34) pg MCHC 32.3 (32-36) g/dl RDW 15.3 H (11.5-14.5) % Plt Count 209 (150-375) k/mm3 MPV 10.5 H (7.4-10.4) fl Immature Gran % (Auto) 0.5 (0-0.5) % Neut % (Auto) 65.2 (45.5-73.1) % Lymph % (Auto) 23.6 (18.3-44.2) % [place] % (Auto) 6.9 (2.6-8.5) % Eos % (Auto) 3.1 (0-4.4) % Baso % (Auto) 0.7 (0.2-1.2) % Lymph # (Auto) 0.99 (0.9-3.2) K/mm3 [place] # (Auto) 0.3 (0.1-0.6) K/mm3 Eos # (Auto) 0.1 (0-0.3) K/mm3 Baso # (Auto) 0.0 (0.0-0.1) K/mm3 Abs Immat Gran (auto) 0.02 (0.00-0.031) K/mm3 Absolute Neuts (auto) 2.7 (1.3-6.7) K/mm3 Absolute Nucleated RBC 0.000 (0.0-0.012) K/mm3 Nucleated RBC % 0.0 (0.0-0.2) % Sodium 140 (137-145) mmol/L Potassium 3.8 (3.4-5.0) mmol/L Chloride 107 (98-107) mmol/L Carbon Dioxide 24 (22-30) mmol/L Anion Gap 9 (4-12) mmol/L BUN 18 H (7-17) mg/dL Creatinine 1.01 H (0.7-1.0) mg/dL Estim Creat Clear Calc 46 ml/min Estimated GFR 54 L (59 - ) Glucose 78 (65-110) mg/dL Calcium 9.1 (8.4-10.2) mg/dL Total Bilirubin 0.7 (0.2-1.3) mg/dL AST 44 H (14-36) U/L ALT 35 (6-35) U/L Alkaline Phosphatase 132 H (38-126) U/L Total Protein 7.0 (6.3-8.2) g/dL Albumin 4.0 (3.5-5.1) g/dL Lipase 21 L (23-300) U/L Urine Color Yellow (Yellow) Urine Appearance Clear (Clear) Urine pH 5.5 (5.0-9.0) Ur Specific [place] 1.008 (1.001-1.035) Urine Protein Negative (Negative) mg/dL Urine Glucose (UA) Negative (Negative) mg/dL Urine Ketones Negative (Negative) mg/dL Ur Blood (Man) Negative (Negative) Urine Nitrate Negative (Negative) Urine Bilirubin Negative (Negative) Urine Urobilinogen 0.2 (<2.0) mg/dL Leukocyte Esterase Rfl Negative (Negative) JACQUELYN/UL <Viola Milan PA-C - Last Filed: 11/05/24 21:26> Lab Results 11/05/24 11/05/24 Range/Units 17:06 19:24 WBC 4.2 L (4.5-10.0) K/mm3 RBC 3.52 L (4.2-5.4) M/mm3 Hgb 11.5 L (12.0-15.0) g/dL Hct 35.6 L (37.0-47.0) % MCV 101.1 H (80-100) fl MCH 32.7 (26-34) pg MCHC 32.3 (32-36) g/dl RDW 15.3 H (11.5-14.5) % Plt Count 209 (150-375) k/mm3 MPV 10.5 H (7.4-10.4) fl Immature Gran % (Auto) 0.5 (0-0.5) % Neut % (Auto) 65.2 (45.5-73.1) % Lymph % (Auto) 23.6 (18.3-44.2) % [place] % (Auto) 6.9 (2.6-8.5) % Eos % (Auto) 3.1 (0-4.4) % Baso % (Auto) 0.7 (0.2-1.2) % Lymph # (Auto) 0.99 (0.9-3.2) K/mm3 [place] # (Auto) 0.3 (0.1-0.6) K/mm3 Eos # (Auto) 0.1 (0-0.3) K/mm3 Baso # (Auto) 0.0 (0.0-0.1) K/mm3 Abs Immat Gran (auto) 0.02 (0.00-0.031) K/mm3 Absolute Neuts (auto) 2.7 (1.3-6.7) K/mm3 Absolute Nucleated RBC 0.000 (0.0-0.012) K/mm3 Nucleated RBC % 0.0 (0.0-0.2) % Sodium 140 (137-145) mmol/L Potassium 3.8 (3.4-5.0) mmol/L Chloride 107 (98-107) mmol/L Carbon Dioxide 24 (22-30) mmol/L Anion Gap 9 (4-12) mmol/L BUN 18 H (7-17) mg/dL Creatinine 1.01 H (0.7-1.0) mg/dL Estim Creat Clear Calc 46 ml/min Estimated GFR 54 L (59 - ) Glucose 78 (65-110) mg/dL Calcium 9.1 (8.4-10.2) mg/dL Total Bilirubin 0.7 (0.2-1.3) mg/dL AST 44 H (14-36) U/L ALT 35 (6-35) U/L Alkaline Phosphatase 132 H (38-126) U/L Total Protein 7.0 (6.3-8.2) g/dL Albumin 4.0 (3.5-5.1) g/dL Lipase 21 L (23-300) U/L Urine Color Yellow (Yellow) Urine Appearance Clear (Clear) Urine pH 5.5 (5.0-9.0) Ur Specific [place] 1.008 (1.001-1.035) Urine Protein Negative (Negative) mg/dL Urine Glucose (UA) Negative (Negative) mg/dL Urine Ketones Negative (Negative) mg/dL Ur Blood (Man) Negative (Negative) Urine Nitrate Negative (Negative) Urine Bilirubin Negative (Negative) Urine Urobilinogen 0.2 (<2.0) mg/dL Leukocyte Esterase Rfl Negative (Negative) JACQUELYN/UL <Kristina Olivarez MD - Last Filed: 11/06/24 02:43> Imaging Data Radiologist's impression: ITS Impressions Abdomen/Pelvis CT 11/05/24 20:07 IMPRESSION: Redemonstration of multiple nonobstructing renal calculi. Findings consistent with prior granulomatous disease. No acute findings within the abdomen or pelvis, as detailed above. <Stacie Oliva PA-C - Last Filed: 11/07/24 09:18> Critical Care Time Critical Care Time Critical Care Time: No <Stacie Oliva PA-C - Last Filed: 11/07/24 09:18> Discharge Plan Discharge Clinical Impression: Left flank pain, Macrocytic anemia, Bilateral nephrolithiasis <Stacie Oliva PA-C - Last Filed: 11/07/24 09:18> Patient Disposition: Home <Stacie Oliva PA-C - Last Filed: 11/07/24 09:18> Condition: Stable <VIVIENNE Alves Last Filed: 11/07/24 09:18> Instructions: Antibiotic Form, Flank Pain (ED) <VIVIENNE Alves Last Filed: 11/07/24 09:18> Additional Instructions: Your evaluated in the emergency department for left flank pain. Your workup here shows multiple kidney stones with in your kidney with they are not obstructing. You do not have a UTI. Your not retaining urine. Please follow- up closely with your primary care provider and urologist. Return to the emergency department if you develop a fever of 100.4 or greater, you are unable to tolerate food or fluids, or other concerning symptoms . <Stacie Oliva PA-C - Last Filed: 11/07/24 09:18> Patient Language: Kiswahili <Stacie Oliva PA-C - Last Filed: 11/07/24 09:18> Prescriptions: New cyclobenzaprine 5 mg tablet 5 mg PO TID PRN (Reason: muscle spasm) Qty: 14 0RF acetaminophen 500 mg capsule 500 mg PO Q6H PRN (Reason: pain) Qty: 14 0RF No Action duloxetine 60 mg capsule,delayed release(DR/EC) 60 mg PO DAILY pravastatin 40 mg tablet 40 mg PO DAILY potassium chloride 10 mEq tablet extended release 10 meq PO DAILY montelukast 10 mg tablet 10 mg PO QHS hydroxychloroquine 200 mg tablet 200 mg PO BID bupropion HCl 150 mg tablet extended release 24 hr 150 mg PO QAM aspirin [Adult Low Dose Aspirin] 81 mg tablet,delayed release (DR/EC) 81 mg PO DAILY folic acid 1 mg tablet 2 mg PO DAILY nystatin 100,000 unit/gram powder 1 applic topical BID Qty: 60 0RF Zyrtec 10 mg capsule 10 mg PO DAILY PRN oxycodone-acetaminophen 5-325 mg tablet 1 tablet PO Q6H PRN rosuvastatin 10 mg tablet 10 mg PO lidocaine 5 % adhesive patch,medicated 1 patch topical DAILY Qty: 15 0RF Rx Instructions: leave on most painful area for up to 12 hrs. do not use more than 1 patch in a 24-hour period. cefuroxime axetil 500 mg tablet 500 mg PO BID Qty: 10 0RF cefuroxime axetil 500 mg tablet 500 mg PO BID Qty: 14 0RF docusate sodium [Colace] 100 mg Capsule 200 mg PO BID calcium carbonate-vitamin D2 600 mg calcium- 200 unit Tablet 1 tablet PO BID cyclobenzaprine 5 mg Tablet 5 mg PO TID PRN (Reason: Muscle spasms) cholecalciferol (vitamin D3) [Vitamin D3] 125 mcg (5,000 unit) Tablet 125 mcg PO DAILY ropinirole 0.5 mg Tablet 1 mg PO HS bumetanide 1 mg tablet 1 mg PO BID gabapentin 100 mg capsule 200 mg PO BID Patient Comments: TAKES 400MG AT HS clobetasol [Clobex] 0.05 % Lotion 1 applic TOPICAL BID PRN (Reason: Itching) Rx Instructions: apply to scalp tramadol 50 mg tablet 50 mg PO Q6H PRN (Reason: Pain) Orencia 125 mg/mL Syringe 125 mg SUBCUT WEEKLY Patient Comments: Tuesday' methotrexate sodium 2.5 mg tablet 17.5 mg PO WEEKLY Patient Comments: TAKES ON WEDNESDAYS cephalexin 500 mg capsule 500 mg PO Q6H 7 Days Qty: 28 0RF Linzess 290 mcg capsule See Rx Instructions .ROUTE .COMPLEX Qty: 30 11RF Dose Instruction: TAKE 1 CAPSULE BY MOUTH EVERY DAY Rx Instructions: TAKE 1 CAPSULE BY MOUTH EVERY DAY fluconazole 150 mg tablet 150 mg PO Q72H Qty: 2 0RF Rx Instructions: as a single dose <Stacie Oliva PA-C - Last Filed: 11/07/24 09:18> Follow-up/Referrals: Mikhail,JACQUI Vickers [Primary Care Provider] - <Stacie Oliva PA-C - Last Filed: 11/07/24 09:18>
--- OUTSIDE RECORDS SUMMARY | 2024-11-05 15:47 | XMS_ITS | Encounter Summary ---
Author Organization [facility] Healthcare Address [address] [place] [address] Care Team Providers Care Inspection And Testing Supervisor Name Role Phone Sharan Linton MD Unavailable [phone] Martha Starks MD Unavailable [phone] Shama Hines MD Unavailable Artis Grewal MD Unavailable [phone] Alee Elizondo Primary Care Provider [phone] Amy Mayes NP Unavailable [phone] Shailesh Dunn MD Unavailable [phone] Sangita Farrar Unavailable [phone] Encounter Details Date Type Department Care Team (Late st Contact Info) Description 09/04/2024 Results Follow-Up [facility] Medical [facility] Family Medicine [address] [place] [address] Alee Elizondo PA [address] [place] [address] Social History Tobacco Use Types Packs/Day Years Used Date Smoking Tobacco: Never Smokeless Tobacco: Never Comments:Never used Alcohol Use Standard Drinks/Week Comments No 0 (1 standard drink = 0.6 oz pur e alcohol) [facility] Utilities Answer Date Recorded In the past 12 months has [employer], [employer], or water [employer] threatened to shut off services in your [...] often do you attend chur ch or confucianism services? 1 to 4 times per year 05/30/2024 Do you belong to any clubs o r organizations such as lutheran groups, unions, fraternal or athletic groups, or school groups? No 05/30/2024 How often do you attend meet ings of the clubs or organizations you belong to? Never 05/30/2024 Are you , , di vorced, , never , or living with a partner? Never 05/30/2024 AUDIT-C Answer Date Recorded Q1: How often do you have a drink containing alcohol? Never 10/23/2024 Q2: How many drinks containi ng alcohol do you have on a typical day when you are drinking? Patient does not drink Q3: How often do you have si x or more drinks on one occasion? Never 10/23/2024 Overall Financial Resource Strain (CARDIA) Answe r Date Recorded How hard is it for you to pa y for the very basics like food, housing, medical care, and heating? 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 Never 10/23/2024 1:03 PM DUT Yovana Camacho LPN Q2: How many drinks containing alcohol do you have on a typical day when you are drinking? Patient does not drink 10/23/2024 1:03 PM Yovana Jacobson LPN Q3: How often do you have six or more drinks on one occasion? Never 10/23/2024 1:03 PM Yovana Jacobson LPN documented as of this encounter Plan of Treatment Not on file documented as of this encounter Visit Diagnoses Not on filedocumented in this encounter Additional Health Concerns Infection Onset Date Last Indicated Resolved Time COVID: Suspected 09/25/2024 09/25/2024 09/25/2024 11:03 AM CDT Influenza, adult 09/25/2024 09/25/2024 10/02/2024 3:05 AM CDT COVID: Suspected 10/23/2024 10/23/2024 10/23/2024 1:15 PM CDT documented as of this encounter Care Teams Inspection And Testing Supervisor Relationship Specialty Start Date End Date Alee Elizondo PA [address] [facility] [address] [place] [address] PCP - General Internal Medicine 07/05/23 Sharan Linton MD Referring Physician Gastroenterology 10/31/18 Martha Starks MD Consulting Physician Cardiology 12/24/20 Shama Hines MD [address] [facility] [address] [place] [address] Consulting Physician Pain Management 01/19/21 Artis Grewal MD [address] [place] [address] Consulting Physician Rheumatology 01/30/21 Amy Mayes NP [address] [facility] [address] [facility] [address] [place] [address] Nurse Practitioner Cardiovascular Disease 04/20/24 Sahilesh Dunn MD [address] [address] Consulting Physician Pulmonary Disease 04/20/24 Sangita Farrar PA [address] [place] [address] Physician Production Control Technologist Rheumatology 05/15/24 documented as of this encounter
--- OUTSIDE RECORDS SUMMARY | 2024-11-05 15:47 | XMS_ITS | Encounter Summary ---
Author Organization [facility] Facility Care Team Providers Care Grain Scooper Name Role Phone Alee Elizondo Primary Care Provider + [phone] Sharan Linton MD Unavailable +[phone] Taisha Gomez MD Unavailable [phone] Parag Soto MD Unavailable [phone] RaziaMartha singh MD Unavailable +[phone] Puneet Uribe MD Unavailable +[phone] Shama Hines MD Unavailable Artis Grewal MD Unavailable [phone] Harrison Pena RN Unavailable +[phone] Nafisa Gregg RN Unavailable +[phone] Tho Kelsey MD Primary Care Provider +[phone] Alee Elizondo Primary Care Provider + [phone] Amy Mayes NP Unavailable +[phone] Shailesh Dunn MD Unavailable +[phone] Sangita Farrar Unavailable +[phone] Encounter Details Date Type Department Care Team (Latest Contact Info) Description 03/24/2016 Orders Only [facility] CLINCONV Provider, MD Tania [address] [place] [address] Social History Tobacco Use Types Packs/Day Years Used Date Smoking Tobacco: Never Alcohol Use Standard Drinks/Week Comments No 0 (1 standard drink = 0.6 oz pur e alcohol) Comments Unknown Sex and Gender Information Value Date Recorded Sex Assigned at Not on file Legal Sex Female 8:04 PM ORACLE TECHNICAL DEVELOPER Gender Identity Female 02/15/2020 6:08 PM [...] Suspected 08/13/2021 08/14/2021 08/14/2021 3:06 AM ORACLE TECHNICAL DEVELOPER COVID: Suspected 08/14/2021 08/14/2021 08/15/2021 3:05 AM ORACLE TECHNICAL DEVELOPER COVID: Suspected 08/14/2021 08/14/2021 08/15/2021 6:25 AM ORACLE TECHNICAL DEVELOPER COVID: Suspected 06/02/2023 06/02/2023 06/02/2023 7:25 PM ORACLE TECHNICAL DEVELOPER COVID: Suspected 07/26/2023 07/26/2023 07/26/2023 3:10 PM ORACLE TECHNICAL DEVELOPER COVID: Suspected 09/25/2024 09/25/2024 09/25/2024 11:03 AM CDT Influenza, adult 09/25/2024 09/25/2024 10/02/2024 3:05 AM CDT COVID: Suspected 10/23/2024 10/23/2024 10/23/2024 1:15 PM CDT documented as of this encounter Care Teams Grain Scooper Relationship Specialty Start Date End Date Alee Elizondo PA [address] [facility] 500 [place] [address] PCP - General Internal Medicine 02/01/17 06/29/23 Tho Kelsey MD [address] [place] [address] [address] [facility] 300 [place] [address] PCP - General Family Medicine 06/30/23 07/04/23 Alee Elizondo PA [address] [facility] [address] [facility] 500 [place] [address] PCP - General Internal Medicine 07/05/23 Sharan Linton MD 10[address] [facility] 500 [place] [address] Referring Physician Gastroenterology 10/31/18 Taisha Gomez MD 1095 [facility] 500 [place] [address] Referring Physician Pulmonary Disease 10/31/18 12/23/20 Parag Soto MD 1095 [facility] 500 [place] [address] Referring Physician Rheumatology 10/31/18 12/23/20 Martha Starks MD 1095 [facility] 500 [place] [address] Consulting Physician Cardiology 12/24/20 Puneet Uribe MD [address] [facility] 110 [place] [address] Consulting Physician Rheumatology 12/24/20 01/29/21 Shama Hines MD 4700 [facility], [facility] 230 [place] [address] Consulting Physician Pain Management 01/19/21 Artis Grewal MD [address] [place] [address] Consulting Physician Rheumatology 01/30/21 Harrison Pena RN [address] [place] [address] Insurance Marketing Specialist 05/30/23 09/04/23 Nafisa Gregg, JULIUS [address] [place] [address] 300 [place] [address] Insurance Marketing Specialist 06/06/23 06/12/23 Amy Mayes NP [address] [address] Nurse Practitioner Cardiovascular Disease 04/20/24 Shailesh Dunn MD [address] [address] Consulting Physician Pulmonary Disease 04/20/24 Sangita Farrar PA [address] [place] [address] Physician Vp Marketing Services And Skin Rheumatology 05/15/24 documented as of this encounter
--- OUTSIDE RECORDS SUMMARY | 2024-11-05 15:47 | XMS_ITS | Encounter Summary ---
Author Organization [facility] Facility Care Team Providers Care Jump Iron Machine Presser Name Role Phone Alee Elizondo Primary Care Provider + [phone] Sharan Linton MD Unavailable [phone] Taisha Gomez MD Unavailable [phone] Parag Soto MD Unavailable [phone] RaziaMartha singh MD Unavailable +[phone] Puneet Uribe MD Unavailable +[phone] Shama Hines MD Unavailable Artis Grewal MD Unavailable [phone] Harrison Pena RN Unavailable +[phone] Nafisa Gregg RN Unavailable [phone] Tho Kelsey MD Primary Care Provider +[phone] Alee Elizondo Primary Care Provider + [phone] Amy Mayes NP Unavailable +[phone] Shailesh Dunn MD Unavailable +[phone] Sangita Farrar Unavailable +[phone] Encounter Details Date Type Department Care Team (Latest Contact Info) Description 12/31/2015 Orders Only [facility]G CLINCONV Provider, MD Tania [address] [place] [address] Social History Tobacco Use Types Packs/Day Years Used Date Smoking Tobacco: Never Alcohol Use Standard Drinks/Week Comments No 0 (1 standard drink = 0.6 oz pur e alcohol) Comments Unknown Sex and Gender Information Value Date Recorded Sex Assigned at Not on file Legal Sex Female 8:04 PM FUR DESIGNER Gender Identity Female 02/15/2020 6:08 PM [...] Suspected 08/13/2021 08/14/2021 08/14/2021 3:06 AM FUR DESIGNER COVID: Suspected 08/14/2021 08/14/2021 08/15/2021 3:05 AM FUR DESIGNER COVID: Suspected 08/14/2021 08/14/2021 08/15/2021 6:25 AM FUR DESIGNER COVID: Suspected 06/02/2023 06/02/2023 06/02/2023 7:25 PM FUR DESIGNER COVID: Suspected 07/26/2023 07/26/2023 07/26/2023 3:10 PM FUR DESIGNER COVID: Suspected 09/25/2024 09/25/2024 09/25/2024 11:03 AM CDT Influenza, adult 09/25/2024 09/25/2024 10/02/2024 3:05 AM CDT COVID: Suspected 10/23/2024 10/23/2024 10/23/2024 1:15 PM CDT documented as of this encounter Care Teams Jump Iron Machine Presser Relationship Specialty Start Date End Date Alee Elizondo PA [address] [place] [address] [place] [address] PCP - General Internal Medicine 02/01/17 06/29/23 Tho Kelsey MD [address] [place] [address] DR [facility] 300 [place] [address] PCP - General Family Medicine 06/30/23 07/04/23 Alee Elizondo PA [address] [facility] [address] [place] [address] [place] [address] PCP - General Internal Medicine 07/05/23 Sharan Linton MD 1095 [facility] [place] [address] [place] [address] Referring Physician Gastroenterology 10/31/18 Taisha Gomez MD 1095 [facility] [place] [address] [place] [address] Referring Physician Pulmonary Disease 10/31/18 12/23/20 Parag Soto MD 10[address] [facility] [place] 500 [place] [address] Referring Physician Rheumatology 10/31/18 12/23/20 Martha Starks MD [address] [facility] [address] [place] [address] [place] [address] Consulting Physician Cardiology 12/24/20 Puneet Uribe MD [address] [facility] 110 [place] [address] Consulting Physician Rheumatology 12/24/20 01/29/21 Shama Hines MD 4700 [facility], [facility] 230 [place] [address] Consulting Physician Pain Management 01/19/21 Artis Grewal MD [address] [place] [address] Consulting Physician Rheumatology 01/30/21 Harrison Pena RN [address] [place] [address] Material Clerk 05/30/23 09/04/23 Nafisa Gregg RN [address] [place] [address] 300 [place] [address] Material Clerk 06/06/23 06/12/23 Amy Mayes NP [address] [address] Nurse Practitioner Cardiovascular Disease 04/20/24 Shailesh Dunn MD [address] [address] Consulting Physician Pulmonary Disease 04/20/24 Sangita Farrar PA [address] [place] [address] Physician Recreation Director Rheumatology 05/15/24 documented as of this encounter
--- OUTSIDE RECORDS SUMMARY | 2024-11-05 15:47 | XMS_ITS | Encounter Summary ---
Author Organization [facility] Healthcare Address [address] [place] [address] Care Team Providers Care Merchandise Planning Manager Name Role Phone Sharan Linton MD Unavailable [phone] Martha Starks MD Unavailable +[phone] Shama Hines MD Unavailable Artis Grewal MD Unavailable [phone] Alee Elizondo Primary Care Provider [phone] Amy Mayes NP Unavailable +[phone] Shailesh Dunn MD Unavailable [phone] Sangita Farrar Unavailable +[phone] Reason for Visit * Reason Onset Date Comments Medical Question/Miscellaneous 09/25/2024 Encounter Details Date Type Department Care Team (Late st Contact Info) Description 09/25/2024 Results Follow-Up [facility] Medical [facility] Family Medicine [address] [facility] [address] [place] [address] Alee Elizondo PA [address] [facility] [address] [place] [address] [place] [address] Social History Tobacco Use Types Packs/Day Years Used Date Smoking Tobacco: Never Smokeless Tobacco: Never Comments:Never used Alcohol Use Standard Drinks/Week Comments No 0 (1 standard drink = 0.6 oz pur e alcohol) [facility] Utilities Answer Date Recorded In the [...] on file Legal Sex Female 8:04 PM CHASSIS ENGINEER Gender Identity Female 02/15/2020 6:08 PM [...] documented as of this encounter Care Teams Merchandise Planning Manager Relationship Specialty Start Date End Date Alee Elizondo PA 1095 [facility] 500 [place], [place] [id number] PCP - General Internal Medicine 07/05/23 Sharan Linton MD Referring Physician Gastroenterology 10/31/18 Martha Starks MD Consulting Physician Cardiology 12/24/20 Shama Hines MD [address] [facility] 230 [place] [address] Consulting Physician Pain Management 01/19/21 Artis Grewal MD [address] [place] [address] Consulting Physician Rheumatology 01/30/21 Amy Mayes NP [address] [facility] [address] [place] [address] Nurse Practitioner Cardiovascular Disease 04/20/24 Shailesh Dunn MD [address] [place] [address] Consulting Physician Pulmonary Disease 04/20/24 Sangita Farrar PA [address] [place] [address] Physician Wallpaper Inspector Rheumatology 05/15/24 documented as of this encounter
--- OUTSIDE RECORDS SUMMARY | 2024-11-05 15:47 | XMS_ITS | Clinical Summary ---
Author Organization [facility] [facility] Address [address] [facility] [place] [address] Care Team Providers Care Supervisor Statement Clerks Name Role Phone Darvin Harden MD Primary Care Provider [phone] Source Comments [facility],non-owned Affiliates and Associated Physician Practices is amultiple site organization consisting of ambulatory clinics and hospital sitesin [place], [place], [place] and [place]. This disclosure is being madepursuant to the Care Everywhere program and may not contain all information available regarding this patient. Last updated 18.[facility] Allergies Active Allergy Reactions Criticality Noted Date [...] fluticasone propionate (Flonase) 50 MCG/ACT nasal spray [place] 2 (two) sprays into the nose once [...] on file Legal Sex Female 4:14 PM HAND SLITTER Gender Identity Not on file Sexual Orientation [...] age to complete this topic Insurance MEDICARE [facility] MEDICARE SELF PAY NO INSURANCE Member Subscriber Plan / Payer (Ef fective for All Dates) Name:Nohemy Lock Member ID:Not on file Relation to Subscriber:Not on file Name:NOHEMY LOCK Subscriber ID:Not on file Address: [address] [address] Payer ID:Not on file Group ID:Not on file Type:Self Pay Address: [place], [place] [facility] MEDICARE SELF PAY NO INSURANCE Member Subscriber Plan / Payer (Ef fective for All Dates) Name:Nohemy Lock Member ID:Not on file Relation to Subscriber:Not on file Name:NOHEMY LOCK Subscriber ID:Not on file Address: [address] [place] [address] Payer ID:Not on file Group ID:Not on file Type:Self Pay Address: [place], [place] [facility] MEDICARE SELF PAY NO INSURANCE Member Subscriber Plan / Payer (Ef fective for All Dates) Name:Nohemy Lock Member ID:Not on file Relation to Subscriber:Not on file Name:NOHEMY LOCK Subscriber ID:Not on file Address: [facility] [place] [address] Payer ID:Not on file Group ID:Not on file Type:Self Pay Address: [place], [place] Care Teams Supervisor Statement Clerks Relationship Specialty Start Date End Date Darvin Harden MD [address] [facility] [address] [place] [address] PCP - General 07/11/19
--- OUTSIDE RECORDS SUMMARY | 2024-11-05 15:47 | XMS_ITS | Encounter Summary ---
Author Organization [facility] Facility Care Team Providers Care Mathematical Scientist Name Role Phone Alee Elizondo Primary Care Provider + [phone] Sharan Linton MD Unavailable Taisha Gomez MD Unavailable [phone] Parag Soto MD Unavailable [phone] [facility] CenterMartha singh MD Unavailable [phone] Puneet Uribe MD Unavailable +[phone] Shama Hines MD Unavailable Artis Grewal MD Unavailable [phone] Harrison Pena RN Unavailable +[phone] Nafisa Gregg RN Unavailable Tho Kelsey MD Primary Care Provider [phone] Alee Elizondo Primary Care Provider + [phone] Amy Mayes NP Unavailable +[phone] Shailesh Dunn MD Unavailable +[phone] Sangita Farrar Unavailable +[phone] Encounter Details Date Type Department Care Team (Latest Contact Info) Description 09/29/2015 Orders Only MMG CLINCONV Provider, MD Tania [address] [place] [address] Social History Tobacco Use Types Packs/Day Years Used Date Smoking Tobacco: Never Assessed Comments Unknown Sex and Gender Information Value Date Recorded Sex Assigned at Not on file Legal Sex Female 8:04 PM DISTRICT LOSS PREVENTION MANAGER Gender Identity Female 02/15/2020 6:08 PM [...] COVID: Suspected 08/13/2021 08/14/2021 08/14/2021 3:06 AM DISTRICT LOSS PREVENTION MANAGER COVID: Suspected 08/14/2021 08/14/2021 08/15/2021 3:05 AM DISTRICT LOSS PREVENTION MANAGER COVID: Suspected 08/14/2021 08/14/2021 08/15/2021 6:25 AM DISTRICT LOSS PREVENTION MANAGER COVID: Suspected 06/02/2023 06/02/2023 06/02/2023 7:25 PM DISTRICT LOSS PREVENTION MANAGER COVID: Suspected 07/26/2023 07/26/2023 07/26/2023 3:10 PM DISTRICT LOSS PREVENTION MANAGER COVID: Suspected 09/25/2024 09/25/2024 09/25/2024 11:03 AM CDT Influenza, adult 09/25/2024 09/25/2024 10/02/2024 3:05 AM CDT COVID: Suspected 10/23/2024 10/23/2024 10/23/2024 1:15 PM CDT documented as of this encounter Care Teams Mathematical Scientist Relationship Specialty Start Date End Date Alee Elizondo PA [address] [address] PCP - General Internal Medicine 02/01/17 06/29/23 Tho Kelsye MD [address] [place] [address] [address] [facility] 300 [place] [address] PCP - General Family Medicine 06/30/23 07/04/23 Alee Elizondo PA [address] [place] [address] [place] [address] PCP - General Internal Medicine 07/05/23 Sharan Linton MD [address] [facility] 500 [place], [place] [address] Referring Physician Gastroenterology 10/31/18 Taisha Gomez MD [address] [facility] 500 [place], [place] [address] Referring Physician Pulmonary Disease 10/31/18 12/23/20 Parag Soto MD [address] [facility] 500 [place] [address] Referring Physician Rheumatology 10/31/18 12/23/20 Martha Starks MD [address] [place] [address] [place], [place] [address] Consulting Physician Cardiology 12/24/20 Puneet Uribe MD [address] [facility] [address] [place] [address] Consulting Physician Rheumatology 12/24/20 01/29/21 Shama Hines MD 4700 [facility], [facility] [address] [place] [address] Consulting Physician Pain Management 01/19/21 Artis Grewal MD [address] [place] [address] Consulting Physician Rheumatology 01/30/21 Harrison Pena, JULIUS [address] [place] [address] Automotive General Manager 05/30/23 09/04/23 Nafisa Gregg, JULIUS [address] [place] [address] [facility] [address] [place] [address] Automotive General Manager 06/06/23 06/12/23 Amy Mayes NP [address] [address] Nurse Practitioner Cardiovascular Disease 04/20/24 Shailesh Dunn MD [address] [address] Consulting Physician Pulmonary Disease 04/20/24 Sangita Farrar PA [address] [place] [address] Physician Transformer Stock Clerk Rheumatology 05/15/24 documented as of this encounter
--- OUTSIDE RECORDS SUMMARY | 2024-11-05 15:47 | XMS_ITS | Encounter Summary ---
Author Organization [facility] Healthcare Address [address] [place] [address] Care Team Providers Care Vamp Cut Out Worker Name Role Phone Sharan Linton MD Unavailable [phone] Martha Starks MD Unavailable [phone] Shama Hines MD Unavailable Artis Grewal MD Unavailable [phone] Alee Elizondo Primary Care Provider [phone] Amy Mayes NP Unavailable +[phone] Shailesh Dunn MD Unavailable [phone] Sangita Farrar Unavailable [phone] Encounter Details Date Type Department Care Team (Late st Contact Info) Description 10/12/2024 Results Follow-Up [facility] Family Medicine [address] [place] [address] Alee Elizondo PA [address] [facility] [address] [place] [address] [place] [address] Social History Tobacco Use Types Packs/Day Years Used Date Smoking Tobacco: Never Smokeless Tobacco: Never Comments:Never used Alcohol Use Standard Drinks/Week Comments No 0 (1 standard drink = 0.6 oz pur e alcohol) [facility] Utilities Answer Date Recorded In the past 12 months has [employer], oil, or water [employer] threatened to shut off services in your [...] on file Legal Sex Female 8:04 PM HIDE AND SKIN COLERER Gender Identity Female 02/15/2020 6:08 PM CDT Sexual Orientation Not on file documented as of this encounter Miscellaneous Notes * Result Encounter Note - Jie Menchaca - 10/15/2024 9:47 AM CDT Pt returned call, informed her of Provider's note. documented in this encounter Plan of Treatment Not on file documented as of this encounter Visit Diagnoses Not on filedocumented in this encounter Additional Health Concerns Infection Onset Date Last Indicated Resolved Time COVID: Suspected 10/23/2024 10/23/2024 10/23/2024 1:15 PM CDT documented as of this encounter Care Teams Vamp Cut Out Worker Relationship Specialty Start Date End Date Alee Elizondo PA [address] [place] [address] [place] [address] PCP - General Internal Medicine 07/05/23 Sharan Linton MD Referring Physician Gastroenterology 10/31/18 Martha Starks MD Consulting Physician Cardiology 12/24/20 Shama Hines MD 4700 [facility] 230 [place] [address] Consulting Physician Pain Management 01/19/21 Artis Grewal MD [address] [place] [address] Consulting Physician Rheumatology 01/30/21 Amy Mayes NP [address] [facility] [address] [place] [address] Nurse Practitioner Cardiovascular Disease 04/20/24 Shailesh Dunn MD [address] [facility] [address] [address] Consulting Physician Pulmonary Disease 04/20/24 Sangita Farrar PA [address] [place] [address] Physician Optical Instrument Assembler Rheumatology 05/15/24 documented as of this encounter
--- OUTSIDE RECORDS SUMMARY | 2024-11-05 15:47 | XMS_ITS | Encounter Summary ---
Author Organization [facility] Facility Care Team Providers Care Teacher Citizenship Name Role Phone Alee Elizondo Primary Care Provider + [phone] Sharan Linton MD Unavailable [phone] Taisha Gomez MD Unavailable [phone] Parag Soto MD Unavailable [phone] RaziaMartha singh MD Unavailable [phone] Puneet Uribe MD Unavailable +[phone] Shama Hines MD Unavailable Artis Grewal MD Unavailable [phone] Harrison Pena RN Unavailable +[phone] Nafisa Gregg RN Unavailable Tho Kelsey MD Primary Care Provider [phone] Alee Elizondo Primary Care Provider + [phone] Amy Mayes NP Unavailable +[phone] Shailesh Dunn MD Unavailable [phone] Sangita Farrar Unavailable +[phone] Encounter Details Date Type Department Care Team (Latest Contact Info) Description 04/19/2016 Orders Only [facility] CLINCONV Provider, MD Tania [address] [place] [address] Social History Tobacco Use Types Packs/Day Years Used Date Smoking Tobacco: Never Alcohol Use Standard Drinks/Week Comments No 0 (1 standard drink = 0.6 oz pur e alcohol) Comments Unknown Sex and Gender Information Value Date Recorded Sex Assigned at Not on file Legal Sex Female 8:04 PM PREASSEMBLER PRINTED CIRCUIT BOARD Gender Identity Female 02/15/2020 6:08 PM CDT [...] COVID: Suspected 08/13/2021 08/14/2021 08/14/2021 3:06 AM PREASSEMBLER PRINTED CIRCUIT BOARD COVID: Suspected 08/14/2021 08/14/2021 08/15/2021 3:05 AM PREASSEMBLER PRINTED CIRCUIT BOARD COVID: Suspected 08/14/2021 08/14/2021 08/15/2021 6:25 AM PREASSEMBLER PRINTED CIRCUIT BOARD COVID: Suspected 06/02/2023 06/02/2023 06/02/2023 7:25 PM PREASSEMBLER PRINTED CIRCUIT BOARD COVID: Suspected 07/26/2023 07/26/2023 07/26/2023 3:10 PM PREASSEMBLER PRINTED CIRCUIT BOARD COVID: Suspected 09/25/2024 09/25/2024 09/25/2024 11:03 AM CDT Influenza, adult 09/25/2024 09/25/2024 10/02/2024 3:05 AM CDT COVID: Suspected 10/23/2024 10/23/2024 10/23/2024 1:15 PM CDT documented as of this encounter Care Teams Teacher Citizenship Relationship Specialty Start Date End Date Alee Elizondo PA 1095 [facility] 500 [place] [address] PCP - General Internal Medicine 02/01/17 06/29/23 Tho Kelsey MD [address] [place] [address] [facility] [address] [place] [address] PCP - General Family Medicine 06/30/23 07/04/23 Alee Elizondo PA [address] [facility] [address] [facility] [address] [place] [address] PCP - General Internal Medicine 07/05/23 Sharan Linton MD 1095 [facility] [address] [place] [address] Referring Physician Gastroenterology 10/31/18 Taisha Gomez MD 10[address] [facility] [address] [place] [address] Referring Physician Pulmonary Disease 10/31/18 12/23/20 Parag Soto MD 1095 [facility] [address] [place] [address] Referring Physician Rheumatology 10/31/18 12/23/20 Martha Starks MD 10[address] [facility] [address] [place] [address] Consulting Physician Cardiology 12/24/20 Puneet Uribe MD [address] [facility] [address] [place] [address] Consulting Physician Rheumatology 12/24/20 01/29/21 Shama Hines MD 4700 [facility], [facility] [address] [place] [address] Consulting Physician Pain Management 01/19/21 Artis Grewal MD [address] [place] [address] Consulting Physician Rheumatology 01/30/21 Harrison Pena RN [address] [place] [address] Supervisor [employer] 05/30/23 09/04/23 Nafisa Gregg, JULIUS [address] [place] [address] [address] [place] [address] Supervisor [employer] 06/06/23 06/12/23 Amy Mayes NP [address] [address] Nurse Practitioner Cardiovascular Disease 04/20/24 Shailesh Dunn MD [address] [address] Consulting Physician Pulmonary Disease 04/20/24 Sangita Farrar PA [address] [place] [address] Physician Clipper Machine Rheumatology 05/15/24 documented as of this encounter
--- OUTSIDE RECORDS SUMMARY | 2024-11-05 15:47 | XMS_ITS | Encounter Summary ---
Author Organization [facility] Facility Care Team Providers Care Vice President For Philanthropy Name Role Phone Alee Elizondo Primary Care Provider + [phone] Sharan Linton MD Unavailable +[phone] Taisha Gomez MD Unavailable +[phone] Parag Soto MD Unavailable +[phone] RaziaMartha singh MD Unavailable +[phone] Puneet Uribe MD Unavailable +[phone] Shama Hines MD Unavailable Artis Grewal MD Unavailable +[phone] Harrison Pena RN Unavailable +[phone] Nafisa Gregg RN Unavailable +[phone] Tho Kelsey MD Primary Care Provider +[phone] Alee Elizondo Primary Care Provider + [phone] Amy Mayes NP Unavailable +[phone] Shailesh Dunn MD Unavailable +[phone] Sangita Farrar Unavailable +[phone] Encounter Details Date Type Department Care Team (Latest Contact Info) Description 11/04/2015 Orders Only [facility] CLINCONV Provider, MD Tania [address] [place] [address] Social History Tobacco Use Types Packs/Day Years Used Date Smoking Tobacco: Never Assessed Comments Unknown Sex and Gender Information Value Date Recorded Sex Assigned at Not on file Legal Sex Female 8:04 PM SOFTWARE SUPPORT ANALYST Gender Identity Female 02/15/2020 6:08 PM [...] COVID: Suspected 08/13/2021 08/14/2021 08/14/2021 3:06 AM SOFTWARE SUPPORT ANALYST COVID: Suspected 08/14/2021 08/14/2021 08/15/2021 3:05 AM SOFTWARE SUPPORT ANALYST COVID: Suspected 08/14/2021 08/14/2021 08/15/2021 6:25 AM SOFTWARE SUPPORT ANALYST COVID: Suspected 06/02/2023 06/02/2023 06/02/2023 7:25 PM SOFTWARE SUPPORT ANALYST COVID: Suspected 07/26/2023 07/26/2023 07/26/2023 3:10 PM SOFTWARE SUPPORT ANALYST COVID: Suspected 09/25/2024 09/25/2024 09/25/2024 11:03 AM CDT Influenza, adult 09/25/2024 09/25/2024 10/02/2024 3:05 AM CDT COVID: Suspected 10/23/2024 10/23/2024 10/23/2024 1:15 PM CDT documented as of this encounter Care Teams Vice President For Philanthropy Relationship Specialty Start Date End Date Alee Elizondo PA [address] [address] PCP - General Internal Medicine 02/01/17 06/29/23 Tho Kelsey MD [address] [place] [address] DR [facility] [address] [place] [address] PCP - General Family Medicine 06/30/23 07/04/23 Alee Elizondo PA [address] [place] [place] [address] PCP - General Internal Medicine 07/05/23 Sharan Linton MD [address] [facility] [address] [place], [place] [id number] Referring Physician Gastroenterology 10/31/18 Taisha Gomez MD [address] [facility] [address] [place], [place] [id number] Referring Physician Pulmonary Disease 10/31/18 12/23/20 Parag Soto MD [address] [facility] [address] [place] [address] Referring Physician Rheumatology 10/31/18 12/23/20 Martha Starks MD [address] [place] [place], [place] [id number] Consulting Physician Cardiology 12/24/20 Puneet Uribe MD [address] [facility] [address] [place] [address] Consulting Physician Rheumatology 12/24/20 01/29/21 Shama Hines MD 47[address] [facility], [facility] [address] [place] [address] Consulting Physician Pain Management 01/19/21 Artis Grewal MD [address] [place] [address] Consulting Physician Rheumatology 01/30/21 Harrison Pena, JULIUS [address] [place] [address] Telecommunications Project Manager 05/30/23 09/04/23 Nafisa Gregg, JULIUS [address] [place] [address] [facility] [address] [place] [address] Telecommunications Project Manager 06/06/23 06/12/23 Amy Mayes NP [address] [address] Nurse Practitioner Cardiovascular Disease 04/20/24 Shailesh Dunn MD [address] [address] Consulting Physician Pulmonary Disease 04/20/24 Sangita Farrar PA [address] [place] [address] Physician Shrimp Picker Rheumatology 05/15/24 documented as of this encounter
--- OUTSIDE RECORDS SUMMARY | 2024-11-05 15:47 | XMS_ITS | Encounter Summary ---
Author Organization [facility] Healthcare Address [address] [place] [address] Care Team Providers Care Hostess Name Role Phone Sharan Linton MD Unavailable [phone] Martha Starks MD Unavailable +[phone] Shama Hines MD Unavailable Artis Grewal MD Unavailable [phone] Alee Elizondo Primary Care Provider [phone] Amy Mayes NP Unavailable +[phone] Shailesh Dunn MD Unavailable [phone] Sangita Farrar Unavailable +[phone] Reason for Visit * Reason Onset Date Comments Medication Request 10/10/2024 Encounter Details Date Type Department Care Team (Late st Contact Info) Description 10/10/2024 Telephone [facility] Family Medicine [address] [place] [address] Alee Elizondo PA [address] [facility] [address] [place] [address] [place] [address] Medication Request Social History Tobacco Use Types Packs/Day Years Used Date Smoking Tobacco: Never Smokeless Tobacco: Never Comments:Never used Alcohol Use Standard Drinks/Week Comments No 0 (1 standard drink = 0.6 oz pur e alcohol) [facility] Utilities Answer Date Recorded In the past 12 months has th e electric, gas, oil, or water Wenwo threatened to shut off services in your [...] often do you attend chur ch or mandaeism services? 1 to 4 times per year [...] place to sleep or slept in a assisted (including now)? No 05/27/2023 PHQ-9 Answer Date [...] any time in the past 12 m [facility], were you homeless or living in a assisted (including now)? No 05/30/2024 Personal Safety Answer Date Recorded Have you ever been in or are you currently in a harmful physical or emotional relationship or is someone making you feel afraid or unsafe? Denies 05/30/2024 Comments No Sex and Gender Information Value Date Recorded Sex Assigned at Not on file Legal Sex Female 8:04 PM MEAT CUTTER Gender Identity Female 02/15/2020 6:08 PM CDT [...] encounter Miscellaneous Notes * Telephone Encounter - [place], Yovana, EYEGLASS LENS GRINDER - 10/10/2024 9:37 AM CDT Called and [...] documented as of this encounter Care Teams Hostess Relationship Specialty Start Date End Date Alee Elizondo PA [address] [facility] [address] [place] [address] PCP - General Internal Medicine 07/05/23 Sharan Linton MD Referring Physician Gastroenterology 10/31/18 Martha Starks MD Consulting Physician Cardiology 12/24/20 Shama Hines MD 47[address] [facility], [place] [place] [address] Consulting Physician Pain Management 01/19/21 Artis Grewal MD [address] [place] [address] Consulting Physician Rheumatology 01/30/21 Amy Mayes NP [address] [address] Nurse Practitioner Cardiovascular Disease 04/20/24 Shailesh Dunn MD [address] [facility] [address] [address] Consulting Physician Pulmonary Disease 04/20/24 Sangita Farrar PA [address] [place] [address] Physician Loss Control Technician Rheumatology 05/15/24 documented as of this encounter
--- OUTSIDE RECORDS SUMMARY | 2024-11-05 15:47 | XMS_ITS | Clinical Summary ---
Author Organization [facility] Address [address] [place] [address] Care Team Providers Care [employer] Vice Principal Name Role Phone Unavailable Primary Care Provider [...] Vaccines Completed 12/13/2017, 12/12/2017, 10/10/2017 Pneumococcal Vaccine: 50+ Years Completed 12/21/2022, 07/06/2014, 08/21/2009 Dexa Scan [...]
--- OUTSIDE RECORDS SUMMARY | 2024-11-05 15:48 | XMS_ITS | Encounter Summary ---
Author Organization [facility] Facility Care Team Providers Care Chair Name Role Phone Alee Elizondo Primary Care Provider + [phone] Sharan Linton MD Unavailable [phone] Taisha Gomez MD Unavailable [phone] Parag Soto MD Unavailable [phone] [facility] MD Unavailable +[phone] Puneet Uribe MD Unavailable +[phone] Shmaa Hines MD Unavailable Artis Grewal MD Unavailable [phone] Harrison Pena RN Unavailable +[phone] Nafisa Gregg RN Unavailable +[phone] Tho Kelsey MD Primary Care Provider [phone] Alee Elizondo Primary Care Provider + [phone] Amy Mayes NP Unavailable [phone] Shailesh Dunn MD Unavailable +[phone] Sangita Farrar Unavailable +[phone] Encounter Details Date Type Department Care Team (Latest Contact Info) Description 09/14/2016 Orders Only [facility] CLINCONV Provider, MD Tania [address] [place] [address] Social History Tobacco Use Types Packs/Day Years Used Date Smoking Tobacco: Never Alcohol Use Standard Drinks/Week Comments No 0 (1 standard drink = 0.6 oz pur e alcohol) Comments Unknown Sex and Gender Information Value Date Recorded Sex Assigned at Not on file Legal Sex Female 8:04 PM FIGURE REFINISHER AND REPAIRER Gender Identity Female 02/15/2020 6:08 PM CDT Sexual Orientation Not on file documented as of this encounter Plan of Treatment Not on file documented as of this encounter Procedures Procedure Name Priority Date/Time Associated Diagnosis Comments PROCEDURE - RESULT 09/09/2016 12 :00 AM FIGURE REFINISHER AND REPAIRER documented in this encounter Results * PROCEDURE - RESULT (09/09/2016 12:00 AM FIGURE REFINISHER AND REPAIRER) Narrative 09/09/2016 12:00 AM FIGURE REFINISHER AND REPAIRER Ordered by an unspecified provider. Historical Provider MD Final Res ult documented in this encounter Visit Diagnoses Not on filedocumented in this encounter Additional Health Concerns Infection Onset Date Last Indicated Resolved Time COVID: Suspected 08/13/2021 08/14/2021 08/14/2021 3:06 AM FIGURE REFINISHER AND REPAIRER COVID: Suspected 08/14/2021 08/14/2021 08/15/2021 3:05 AM FIGURE REFINISHER AND REPAIRER COVID: Suspected 08/14/2021 08/14/2021 08/15/2021 6:25 AM FIGURE REFINISHER AND REPAIRER COVID: Suspected 06/02/2023 06/02/2023 06/02/2023 7:25 PM FIGURE REFINISHER AND REPAIRER COVID: Suspected 07/26/2023 07/26/2023 07/26/2023 3:10 PM FIGURE REFINISHER AND REPAIRER COVID: Suspected 09/25/2024 09/25/2024 09/25/2024 11:03 AM CDT Influenza, adult 09/25/2024 09/25/2024 10/02/2024 3:05 AM CDT COVID: Suspected 10/23/2024 10/23/2024 10/23/2024 1:15 PM CDT documented as of this encounter Care Teams Chair Relationship Specialty Start Date End Date Alee Elizondo PA 1095 [facility] [address] [place] [address] PCP - General Internal Medicine 02/01/17 06/29/23 Tho Kelsey MD [address] [place] [address] DR [facility] [address] [place] [address] PCP - General Family Medicine 06/30/23 07/04/23 Alee Elizondo PA [address] [facility] [address] [place] [address] PCP - General Internal Medicine 07/05/23 Sharan Linton MD 10[address] [facility] [address] [place] [address] Referring Physician Gastroenterology 10/31/18 Taisha Gomez MD 1095 [facility] [address] [place] [address] Referring Physician Pulmonary Disease 10/31/18 12/23/20 Parag Soto MD 1095 [facility] [address] [place] [address] Referring Physician Rheumatology 10/31/18 12/23/20 Martha Starks MD 10[address] [facility] [address] [place] [address] Consulting Physician Cardiology 12/24/20 Puneet Uribe MD [address] [facility] [address] [place] [address] Consulting Physician Rheumatology 12/24/20 01/29/21 Shama Hines MD 4700 [facility], [facility] [address] [place] [address] Consulting Physician Pain Management 01/19/21 Artis Grewal MD [address] [place] [address] Consulting Physician Rheumatology 01/30/21 Harrison Pena, JULIUS [address] [place] [address] Trampoline Team Coach 05/30/23 09/04/23 Nafisa Gregg, JULIUS [address] [place] [address] [facility] [address] [place] [address] Trampoline Team Coach 06/06/23 06/12/23 Amy Mayes NP [address] [facility] [address] [place] [address] Nurse Practitioner Cardiovascular Disease 04/20/24 Shailesh Dunn MD 4600 [facility] [address] [place] [address] Consulting Physician Pulmonary Disease 04/20/24 Sangita Farrar PA [address] [place] [address] Physician Quarter Backer Rheumatology 05/15/24 documented as of this encounter
--- OUTSIDE RECORDS SUMMARY | 2024-11-05 15:48 | XMS_ITS | Encounter Summary ---
Author Organization [facility] Facility Care Team Providers Care Warehouse Operations Associate Name Role Phone Alee Elizondo Primary Care Provider + [phone] Sharan Linton MD Unavailable [phone] Taisha Gomez MD Unavailable +[phone] Parag Soto MD Unavailable [phone] RaziaMartha singh MD Unavailable [phone] Puneet Uribe MD Unavailable +[phone] Shama Hines MD Unavailable Artis Grewal MD Unavailable [phone] Harrison Pena RN Unavailable +[phone] Nafisa Gregg RN Unavailable +[phone] Tho Kelsey MD Primary Care Provider +[phone] Alee Elizondo Primary Care Provider + [phone] Amy Mayes NP Unavailable +[phone] Shailesh Dunn MD Unavailable +[phone] Sangita Farrar Unavailable +[phone] Encounter Details Date Type Department Care Team (Latest Contact Info) Description 01/08/2017 Orders Only [facility] CLINCONV Provider, MD Tania [address] [place] [address] Social History Tobacco Use Types Packs/Day Years Used Date Smoking Tobacco: Never Alcohol Use Standard Drinks/Week Comments No 0 (1 standard drink = 0.6 oz pur e alcohol) Comments Unknown Sex and Gender Information Value Date Recorded Sex Assigned at Not on file Legal Sex Female 8:04 PM LAUNDRY SUPERINTENDENT Gender Identity Female 02/15/2020 6:08 PM CDT [...] COVID: Suspected 08/13/2021 08/14/2021 08/14/2021 3:06 AM LAUNDRY SUPERINTENDENT COVID: Suspected 08/14/2021 08/14/2021 08/15/2021 3:05 AM LAUNDRY SUPERINTENDENT COVID: Suspected 08/14/2021 08/14/2021 08/15/2021 6:25 AM LAUNDRY SUPERINTENDENT COVID: Suspected 06/02/2023 06/02/2023 06/02/2023 7:25 PM LAUNDRY SUPERINTENDENT COVID: Suspected 07/26/2023 07/26/2023 07/26/2023 3:10 PM LAUNDRY SUPERINTENDENT COVID: Suspected 09/25/2024 09/25/2024 09/25/2024 11:03 AM CDT Influenza, adult 09/25/2024 09/25/2024 10/02/2024 3:05 AM CDT COVID: Suspected 10/23/2024 10/23/2024 10/23/2024 1:15 PM CDT documented as of this encounter Care Teams Warehouse Operations Associate Relationship Specialty Start Date End Date Alee Elizondo PA 1095 [facility] 500 [place] [address] PCP - General Internal Medicine 02/01/17 06/29/23 Tho Kelsey MD [address] [place] [address] [address] [facility] [address] [place] [address] PCP - General Family Medicine 06/30/23 07/04/23 Alee Elizondo PA [address] [facility] [address] [facility] [address] [place] [address] PCP - General Internal Medicine 07/05/23 Sharan Linton MD 1095 [facility] [address] [place] [address] Referring Physician Gastroenterology 10/31/18 Taisha Gomez MD 1095 [facility] [address] [place] [address] Referring Physician Pulmonary Disease 10/31/18 12/23/20 Parag Soto MD 1095 [facility] [address] [place] [address] Referring Physician Rheumatology 10/31/18 12/23/20 Martha Starks MD 1095 [facility] [address] [place] [address] Consulting Physician Cardiology 12/24/20 Puneet Uribe MD [address] [facility] [address] [place] [address] Consulting Physician Rheumatology 12/24/20 01/29/21 Shama Hines MD 4700 [facility], [facility] [address] [place] [address] Consulting Physician Pain Management 01/19/21 Artis Grewal MD [address] [place] [address] Consulting Physician Rheumatology 01/30/21 Harrison Pena RN [address] [place] [address] Traffic Analysis Technician 05/30/23 09/04/23 Nafisa Gregg, JULIUS [address] [place] [address] [address] [place] [address] Traffic Analysis Technician 06/06/23 06/12/23 Amy Mayes NP [address] [address] Nurse Practitioner Cardiovascular Disease 04/20/24 Shailesh Dunn MD [address] [address] Consulting Physician Pulmonary Disease 04/20/24 Sangita Farrar PA [address] [place] [address] Physician [place] Guide Rheumatology 05/15/24 documented as of this encounter
--- OUTSIDE RECORDS SUMMARY | 2024-11-05 15:48 | XMS_ITS | Clinical Summary ---
Author Organization [facility] [address] Address [address] [place] [address] Care Team Providers Care Childbirth And Infant Care Teacher Name Role Phone Sharan Linton MD Unavailable [phone] Martha Starks MD Unavailable [phone] Shama Hines MD Unavailable Artis Grewal MD Unavailable [phone] Alee Elizondo Primary Care Provider [phone] Amy Mayes NP Unavailable [phone] Shailesh Dunn MD Unavailable [phone] Sangita Farrar Unavailable Allergies Active Allergy Reactions [...] mouth 2 (two) times a day Active Linzess 290 mcg capsule Take 1 [...] needed for pain 50 tablet 024 Active lactobacillus combination no.9 4 billion cell capsuleIndication s:Orthopedic aftercare One tablet daily 30 capsule 025 Active folic acid (FOLVITE) 1 mg [...] mouth nightly 180 tablet 2 025 Active rosuvastatin (CRESTOR) 10 mg tabletIndications [...] ACTIVE ORAL) Take by mouth Act alexys gabapentin (NEURONTIN) 100 mg capsule TAKE TWO CAPSULES BY MOUTH TWICE DAILY @9AM-5PM 120 capsule 11 025 Active Orencia ClickJect 125 mg/mL auto-injector 025 Active buPROPion XL (WELLBUTRIN XL) 300 mg 24 hr tablet Take 1 tablet (300 mg total) by mouth every morning 90 tablet 1 025 Active fluticasone propionate (FLONASE) 50 mcg/actuation nasal spray SPRAY 2 SPRAYS INTO EACH NOSTRIL EVERY DAY 48 mL [address] (CYMBALTA) 60 mg capsuleIndication s:Moderate episode of recurrent major depressive disorder (HCC) Take 1 capsule (60 mg total) by mouth daily 90 capsule 025 Active cetirizine (ZyrTEC) 10 mg tabletIndications :Sinus congestion Take 1 tablet (10 mg total) by mouth daily 30 tablet 11 022 2024 Discontinued buPROPion XL (WELLBUTRIN XL) 150 mg 24 hr tabletIndications :Anxiety with Depression Take 1 tablet (150 mg total) by mouth every morning 90 tablet 2 024 2024 Discontinued fluconazole (DIFLUCAN) 150 mg tabletIndications :Yeast infection Take one tab now. Repeat in 7 days if symptoms persist. 2 tablet 024 2024 Discontinued(T herapy completed) sulfaSALAzine (AZULFIDINE) 500 mg tablet Take 1 tablet (500 mg total) by mouth 2 (two) times a day 60 tablet 025 2024 Discontinued fluticasone propionate (FLONASE) 50 mcg/actuation nasal spray Administer 2 sprays into each nostril daily 3 each 4 [address] (CYMBALTA) 60 mg capsuleIndication s:Moderate episode of recurrent major depressive disorder (HCC) TAKE ONE CAPSULE BY MOUTH DAILY 9 capsule 025 2024 Discontinued(R eorder) benzonatate (TESSALON) 200 mg capsuleIndication s:Influenza A,Acute cough Take 1 capsule (200 mg total) by mouth 3 (three) times a day as needed for cough 30 capsule 025 2024 Discontinued sulfamethoxazole- trimethoprim (BACTRIM) 400-80 mg per tablet Take by mouth 2024 Discontinued(T herapy completed) doxycycline (VIBRAMYCIN) 100 mg capsuleIndication s:Acute non-recurrent sinusitis, unspecified location Take 1 tablet/capsule (100 mg total) by mouth 2 (two) times a day for 10 days 20 tablet/caps ule 025 2024 methylPREDNISolon e (MEDROL DOSEPACK) 4 mg DosepackIndicatio ns:Acute non-recurrent sinusitis, unspecified location Take as directed on package 1 packet 025 2024 Active Problems Patient Care Coordination No te Formatting of this note migh t be different from the original. CAD for BIC Problem Noted Date Diagnosed Date Annual physical exam 10/09/2024 Assessment & Plan (10/22/2024 1:07 PM CDT): Encouraged healthy lifestyle, good nutrition and exercise. Encouraged Calcium and Vitamin D and weight bearing exercise for bone health. Reviewed immunizations Reviewed age appropirate screenings. Primary osteoarthritis 06/01/2024 Arthritis of right knee 05/30/2024 Pelvic pain 10/30/2023 Assessment & Plan (10/30/2023 11:44 PM CDT): Patient has a large pelvic lipomatosis. She has had evaluation by Urology at [facility] and has been told there is [...] repositioning it and changing it is capacity. Acute cough 08/07/2023 Assessment & Plan (10/23/2024 1:48 PM CDT): Cough is likely allergy-related due to duration. No production of sputum. Lungs are clear to auscultation. Cough is likely being triggered by congestion and drainage. - Take OTC Mucinex to thin out mucus and help with the cough - Take your antibiotic and steroid pack as prescribed. Assessment & Plan (08/07/2023 7:55 PM CIVIL ENGINEERING PROJECT MANAGER): Persistent sinusitis symptoms along with cough. Will start doxy b.i.d.. Start antihistamine (Claritin OR Zyrtec), Mucinex 12hour and Steroid nasal spray (Flonase). Push fluids. Rest. Supportive care. If sxs worsen or don\'t improve, pt is to followup in the office. Morbid obesity 08/03/2023 Assessment & Plan (10/23/2024 1:06 PM CDT): Discussed the patient's BMI. The BMI is above average. BMI management plan is completed. BMI Follow-up includes: nutrition counseling, exercise counseling and education provided. Assessment & Plan (10/10/2024 7:47 AM CDT): Discussed the patient's BMI. The BMI is above average. BMI management plan is completed. BMI Follow-up includes: nutrition counseling, exercise counseling and education provided. Assessment & Plan (05/07/2024 8:56 PM CIVIL ENGINEERING PROJECT MANAGER): Discussed the patient's BMI. The [...] provided. Assessment & Plan (09/06/2023 9:38 AM CIVIL ENGINEERING PROJECT MANAGER): Discussed the patient's BMI. The BMI is above average. BMI management plan is completed. BMI Follow-up includes: nutrition counseling, exercise counseling and education provided. Patient has an obesity-related condition (not limited to: hypertension, obstructive sleep apnea, osteoarthritis, hyperlipidemia, diabetes, etc.). Therefore, morbid obesity may be documented for patients with a BMI between 35.00-39.99. Assessment & Plan (08/07/2023 7:51 PM CIVIL ENGINEERING PROJECT MANAGER): Discussed the patient's BMI. The BMI is above average. BMI management plan is completed. BMI Follow-up includes: nutrition counseling, exercise counseling and education provided. Patient has an obesity-related condition (not limited to: hypertension, obstructive sleep apnea, osteoarthritis, hyperlipidemia, diabetes, etc.). Therefore, morbid obesity may be documented for patients with a BMI between 35.00-39.99. Assessment & Plan (08/03/2023 7:45 AM CIVIL ENGINEERING PROJECT MANAGER): Discussed the patient's BMI. The BMI is above average. BMI management plan is completed. BMI Follow-up includes: nutrition counseling, exercise counseling and education provided. Primary osteoarthritis of right knee 07/08/2023 Assessment & Plan (05/07/2024 8:56 PM CIVIL ENGINEERING PROJECT MANAGER): Patient has arthritis in the right knee. Planning a total knee replacement with Dr. Alexus Motta on May 30 Assessment & Plan (08/03/2023 8:28 AM CIVIL ENGINEERING PROJECT MANAGER): Continue per ortho. She is seeing some improvement but it is difficult to know if the knee is rheumatoid versus osteo versus other etiology. Will await recommendations from JACQUI Raya but definitely encouraged her to become active as soon as possible. Status post total knee replacement using cement, right 05/19/2023 Assessment & Plan (06/02/2023 4:56 PM CIVIL ENGINEERING PROJECT MANAGER): Status post total knee replacement with Dr. Ge Sexton 04 May. She has just been released from rehab following up for her TCM visit. She appears to have an area of cellulitis at the incision site. She is also complaining of increased pain. Will check CBC CMP and inflammatory markers along with an x-ray. She plans to go to [facility] for the workup. Will follow up with [...] joint 3 Radiculopathy, lumbar region 05/06/2023 BMI 34.0-34.9,adult 04/06/2023 Assessment & Plan (10/23/2024 1:06 PM CDT): Discussed the patient's BMI. The BMI is above average. BMI management plan is completed. BMI Follow-up includes: nutrition counseling, exercise counseling and education provided. Assessment & Plan (10/10/2024 7:47 AM CDT): [...] provided. Assessment & Plan (06/02/2023 8:27 AM CIVIL ENGINEERING PROJECT MANAGER): Discussed the patients BMI: The [...] 12/20/2022 Assessment & Plan (05/07/2024 8:55 PM CIVIL ENGINEERING PROJECT MANAGER): Patient is on medication for her rheumatoid arthritis managed by [facility] Assessment & Plan (01/22/2024 8:13 PM CDT): Medications from [facility] contribute to her immunosuppressive state. Assessment & Plan (09/06/2023 9:41 AM CIVIL ENGINEERING PROJECT MANAGER): Medications are managed by [facility] for her rheumatoid arthritis Assessment & Plan (04/06/2023 7:44 PM CDT): Managed by [facility]. Currently on Plaquenil methotrexate Orencia folic acid. Pelvic lipomatosis 07/18/2022 Assessment & Plan (10/22/2024 1:07 PM CDT): Continue per Urology. She continues to have issues with UTIs and retention. Currently has a catheter in place. Continue with . She is awaiting urodynamics next week to determine next step Assessment & Plan (04/21/2024 8:50 PM CDT): [...] She has had evaluation by Urology at [facility] and has been told there is [...] capacity. Assessment & Plan (09/06/2023 9:41 AM CIVIL ENGINEERING PROJECT MANAGER): Continue per . She did [...] Pate. Assessment & Plan (07/18/2022 10:20 AM CIVIL ENGINEERING PROJECT MANAGER): CT revealed pelvic lipomatosis that [...] 02/11/2022 Assessment & Plan (09/06/2023 9:41 AM CIVIL ENGINEERING PROJECT MANAGER): No change. Dysfunction of both eustachian tubes 02/11/2022 Myalgia, lower leg 01/11/2022 PLMD (periodic limb movement disorder) Assessment & Plan (08/02/2024 11:49 AM CIVIL ENGINEERING PROJECT MANAGER): Asymptomatic Assessment & Plan (06/22/2022 10:31 AM CIVIL ENGINEERING PROJECT MANAGER): Will continue Requip 1 mg [...] bedtime. Assessment & Plan (07/13/2021 11:25 AM CIVIL ENGINEERING PROJECT MANAGER): Due to the patient stating [...] 06/04/2020 Assessment & Plan (08/23/2024 10:16 AM CIVIL ENGINEERING PROJECT MANAGER): Hepatitis negative 06/2020 Tspot negative 06/2020 Continue routine lab monitoring Maintain routine eye exams throughout the duration of taking hydroxychloroquine Assessment & Plan (07/30/2024 8:24 AM CIVIL ENGINEERING PROJECT MANAGER): Hepatitis negative 06/2020 Tspot negative [...] hydroxychloroquine Assessment & Plan (09/01/2023 8:34 AM CIVIL ENGINEERING PROJECT MANAGER): Hepatitis negative 06/2020 Tspot negative 06/2020 Continue routine lab monitoring Maintain routine eye exams throughout the duration of taking hydroxychloroquine Assessment & Plan (06/29/2023 2:19 PM CIVIL ENGINEERING PROJECT MANAGER): Hepatitis negative 06/2020 Tspot negative [...] hydroxychloroquine Assessment & Plan (07/14/2022 2:58 PM CIVIL ENGINEERING PROJECT MANAGER): Hepatitis negative 06/2020 Tspot negative 06/2020 Continue routine lab monitoring Maintain routine eye exams throughout the duration of taking hydroxychloroquine Assessment & Plan (06/03/2022 9:58 AM CIVIL ENGINEERING PROJECT MANAGER): Hepatitis negative 06/2020 Tspot negative [...] hydroxychloroquine Assessment & Plan (09/03/2021 8:29 AM CIVIL ENGINEERING PROJECT MANAGER): Hepatitis negative 06/2020 Tspot negative 06/2020 Continue routine lab monitoring Maintain routine eye exams throughout the duration of taking hydroxychloroquine Assessment & Plan (06/03/2021 4:17 PM CIVIL ENGINEERING PROJECT MANAGER): Hepatitis negative 06/2020 Tspot negative [...] hydroxychloroquine Assessment & Plan (09/02/2020 1:16 PM CIVIL ENGINEERING PROJECT MANAGER): Hepatitis negative 06/2020 Tspot negative 06/2020 Continue routine lab monitoring Maintain routine eye exams throughout the duration of taking hydroxychloroquine Assessment & Plan (07/09/2020 12:23 PM CIVIL ENGINEERING PROJECT MANAGER): Hepatitis negative 06/2020 Tspot negative 06/2020 Continue routine lab monitoring Maintain routine eye exams throughout the duration of taking hydroxychloroquine Acute non-recurrent sinusitis 04/03/2020 Assessment & Plan (10/23/2024 1:47 PM CDT): Patient reports cough that began end of July. No longer producing sputum but reports increased sinus congestion and ear fullness with post-nasal drip and sinus pain. She has history of seasonal allergies and notes that this feels like her typical symptoms just worse. Has attempted OTC allergy medicines and Flonase without resolution of symptoms. Likely an acute sinusitis from weeks of drainage. Will prescribe doxycyline due to PCN allergy and Medrol pack. - Take the doxycycline and steroid pack exactly as prescribed and finish the course - Continue taking daily Flonase and OTC Zyrtec or Claritin - Take Mucinex over the counter to think out mucus Assessment & Plan (04/03/2020 11:45 AM CDT): Will start on antibiotics, continue with flonase Advised f/u in 72h if not improving, sooner if worsening Drug-induced constipation 08/13/2019 Assessment & Plan (05/07/2024 8:54 PM CIVIL ENGINEERING PROJECT MANAGER): Patient with chronic constipation. Has [...] linzess Assessment & Plan (08/13/2019 8:57 AM CIVIL ENGINEERING PROJECT MANAGER): On Movantik with Dr. Soto Herpes zoster without complication 12/13/2018 Assessment & Plan (12/23/2018 10:18 PM CDT): Valtex to pharmacy. She has had shingles in the past. Pre-diabetes 10/31/2018 Assessment & Plan (10/22/2024 1:05 PM CDT): Pre-diabetes/hyperglycemia is a precursor to Dm. Stressed importance of working on diet (decrease your simple sugars and one carbohydrate with each meal) and increase you exercise to achieve weight loss and this will help prevent you from progressing to diabetes. Assessment & Plan (05/07/2024 8:55 PM CIVIL ENGINEERING PROJECT MANAGER): Pre-diabetes/hyperglycemia is a precursor to [...] diabetes. Assessment & Plan (09/06/2023 9:40 AM CIVIL ENGINEERING PROJECT MANAGER): Pre-diabetes/hyperglycemia is a precursor to [...] diabetes. Assessment & Plan (09/11/2021 11:22 PM CIVIL ENGINEERING PROJECT MANAGER): Pre-diabetes/hyperglycemia is a precursor to Dm. Stressed importance of working on diet (decrease your simple sugars and one carbohydrate with each meal) and increase you exercise to achieve weight loss and this will help prevent you from progressing to diabetes. Assessment & Plan (05/29/2021 8:18 PM CIVIL ENGINEERING PROJECT MANAGER): Pre-diabetes/hyperglycemia is a precursor to [...] diabetes. Assessment & Plan (08/31/2020 9:34 AM CIVIL ENGINEERING PROJECT MANAGER): Pre-diabetes is a precursor to [...] diabetes. Assessment & Plan (08/13/2019 9:00 AM CIVIL ENGINEERING PROJECT MANAGER): This is a significant, separately [...] depressive d isorder 10/31/2018 Assessment & Plan (10/22/2024 1:06 PM CDT): depression symptoms are stable with Wellbutrin XL 150 and Cymbalta 60 b.I.d. Assessment & Plan (05/07/2024 8:54 PM CIVIL ENGINEERING PROJECT MANAGER): Depression symptoms are stable with Wellbutrin XL 150 Cymbalta 60 b.i.d. Assessment & Plan (04/21/2024 8:50 PM CDT): Depression symptoms are stable with the Wellbutrin XL 150 and Cymbalta 60 b.i.d. Assessment & Plan (01/22/2024 8:11 PM CDT): Depression symptoms are stable with Wellbutrin and Cymbalta Assessment & Plan (09/06/2023 9:40 AM CIVIL ENGINEERING PROJECT MANAGER): Depression is stable with Wellbutrin and Cymbalta Assessment & Plan (08/03/2023 8:31 AM CIVIL ENGINEERING PROJECT MANAGER): Stable with Cymbalta 60 and [...] Cymbalta Assessment & Plan (09/11/2021 11:26 PM CIVIL ENGINEERING PROJECT MANAGER): Continue Wellbutrin and Cymbalta Assessment & Plan (05/29/2021 8:22 PM CIVIL ENGINEERING PROJECT MANAGER): Continue Wellbutrin and Cymbalta Assessment & Plan (05/24/2021 10:39 AM CIVIL ENGINEERING PROJECT MANAGER): Continue Wellbutrin and Cymbalta Assessment & Plan (12/24/2020 9:07 AM CDT): Continue wellbutrin and cymbalta Assessment & Plan (08/31/2020 9:35 AM CIVIL ENGINEERING PROJECT MANAGER): Continue wellbutrin and cymbalta Assessment & Plan (02/18/2020 9:47 PM CDT): Stable with the Cymbalata Assessment & Plan (08/13/2019 8:59 AM CIVIL ENGINEERING PROJECT MANAGER): Stable with Cymbalta and Wellbutrin [...] regimen. Med list updated to reflect the [id number] one daily and Prozac 40mg. Mixed hyperlipidemia 03/29/2018 Assessment & Plan (10/22/2024 1:06 PM CDT): Encouraged patient to follow low fat/low chol diet like the Mediterranean diet. Increase good fats in the diet. Increase exercise. Monitor labs as needed. Continue Crestor 10 Assessment & Plan (05/07/2024 8:54 PM CIVIL ENGINEERING PROJECT MANAGER): Encouraged patient to follow low [...] statin Assessment & Plan (09/06/2023 9:42 AM CIVIL ENGINEERING PROJECT MANAGER): Encouraged patient to follow low [...] statin Assessment & Plan (09/11/2021 11:26 PM CIVIL ENGINEERING PROJECT MANAGER): Encouraged patient to follow low fat/low chol diet like the Mediterranean diet. Increase good fats in the diet. Increase exercise. Monitor labs as needed. Continue statin Assessment & Plan (05/29/2021 8:22 PM CIVIL ENGINEERING PROJECT MANAGER): Encouraged patient to follow fat/low chol diet like the Mediterranean diet. Increase good fats in the diet. Increase exercise. Monitor labs as needed. Continue statin Assessment & Plan (05/24/2021 10:39 AM CIVIL ENGINEERING PROJECT MANAGER): Encouraged patient to follow fat/low [...] statin Assessment & Plan (08/31/2020 9:34 AM CIVIL ENGINEERING PROJECT MANAGER): Encouraged patient to follow fat/low chol diet like the Mediterranean diet. Increase good fats in the diet. Increase exercise. Monitor labs as needed. Continue statin Assessment & Plan (02/18/2020 9:46 PM CDT): Encouraged patient to continue low fat/low chol diet. Continue exercise. Increase good fats in the diet. Monitor labs as needed. Assessment & Plan (08/13/2019 8:59 AM CIVIL ENGINEERING PROJECT MANAGER): Encouraged patient to continue low [...] without esophagi tis 09/09/2016 Assessment & Plan (10/22/2024 1:06 PM CDT): Last EGD was in August of 2023. Symptoms are currently being managed without medication. Continue behavioral management Assessment & Plan (04/21/2024 8:50 PM CDT): [...] future Assessment & Plan (09/06/2023 9:40 AM CIVIL ENGINEERING PROJECT MANAGER): Continue PPI Assessment & Plan (04/06/2023 7:36 PM CDT): Continue PPI p.r.n. Assessment & Plan (01/20/2023 8:13 PM CDT): Continue PPI Assessment & Plan (09/12/2022 6:13 PM CDT): Continue PPI p.r.n. Assessment & Plan (06/03/2022 3:40 PM CIVIL ENGINEERING PROJECT MANAGER): Pyrosis poorly controlled on Nexium. [...] PPI Assessment & Plan (09/11/2021 11:26 PM CIVIL ENGINEERING PROJECT MANAGER): Continue PPI Assessment & Plan (12/24/2020 9:05 AM CDT): Continue PPI Assessment & Plan (02/18/2020 9:45 PM CDT): Continue PPI. Saw Dr. Linton for increased GERD sxs. If persist, encouraged to followup again with Dr. Linton. Assessment & Plan (08/13/2019 8:58 AM CIVIL ENGINEERING PROJECT MANAGER): Stable with PPI Assessment & [...] exertion) Assessment & Plan (06/22/2022 10:30 AM CIVIL ENGINEERING PROJECT MANAGER): Patient is not currently using [...] OWEN on CPAP 10/14/2015 Assessment & Plan (10/22/2024 1:05 PM CDT): Managed by Dr. Dunn. Continue CPAP Assessment & Plan (08/02/2024 11:49 AM CIVIL ENGINEERING PROJECT MANAGER): Due to the patient stating [...] patient Assessment & Plan (05/07/2024 8:55 PM CIVIL ENGINEERING PROJECT MANAGER): Continue with CPAP. Assessment & Plan (04/21/2024 8:49 PM CDT): Continue per Dr. Dunn. Has all her needed supplies for CPAP which she is using every night. Continue with Requip 0.5 mg HS for restless leg Assessment & Plan (01/22/2024 8:08 PM CDT): Continue CPAP per Dr. Dunn Assessment & Plan (09/06/2023 9:40 AM CIVIL ENGINEERING PROJECT MANAGER): Continue CPAP Assessment & Plan (06/21/2023 10:14 AM CIVIL ENGINEERING PROJECT MANAGER): Patient continue to wear her [...] CPAP Assessment & Plan (06/22/2022 10:31 AM CIVIL ENGINEERING PROJECT MANAGER): Will continue CPAP therapy at an auto titrating range of 7-20 cm water pressure. Denied need for supplies. DME [employer] patient Assessment & Plan (05/02/2022 9:15 PM [...] water pressure. Patient denied need for supplies. [employer] patient. Patient is benefitting CPAP Assessment & Plan (09/11/2021 11:22 PM CIVIL ENGINEERING PROJECT MANAGER): Continue CPAP. Patient has all needed supplies. Assessment & Plan (07/13/2021 11:27 AM CIVIL ENGINEERING PROJECT MANAGER): Due to the patient stating she does not have enough pressure in her machine, I have increased the pressure to 13 cm water pressure. The patient denied need for for supplies. DME company [employer] patient. Have also ordered a new smart card set at 13 cm water pressure. Benefitting from CPAP therapy Assessment & Plan (05/29/2021 8:14 PM CIVIL ENGINEERING PROJECT MANAGER): Continue CPAP. Assessment & Plan (02/17/2021 11:09 AM CDT): The patient continues to be compliant with her CPAP at 8 cm water pressure. She has developed worsening daytime hypersomnia. She also has morning headaches and dry mouth. I have recommended proceeding with a CPAP titration study starting at 8 cm water pressure. Her DME is [facility] patient. Assessment & Plan (12/24/2020 9:04 AM CDT): Continue CPAP. Would like to see Pulm/sleep at [facility] as difficulty getting in consistently at [place] and most of her care is now [facility] Assessment & Plan (02/18/2020 9:44 PM CDT): Continue CPAP Assessment & Plan (08/13/2019 8:46 AM CIVIL ENGINEERING PROJECT MANAGER): Using the CPAP. Has equipment [...] fascia since previous examination. Assessment & Plan (10/22/2024 1:04 PM CDT): Continue per [facility]. Continue Plaquenil methotrexate Orencia folic acid Mobic gabapentin. Assessment & Plan (08/23/2024 12:54 PM CIVIL ENGINEERING PROJECT MANAGER): Moderate cdai with report of [...] needed. Assessment & Plan (07/30/2024 11:22 AM CIVIL ENGINEERING PROJECT MANAGER): Moderate cdai with report of [...] with labs near her home ([facility] in [place]), but the following month will need to plan for an in person visit. She expressed understanding and agreement with this plan. Continue methotrexate 20 mg weekly, folic acid 2 mg daily, and hydroxychloroquine 200 mg BID. Labs today as below. Assessment & Plan (05/07/2024 8:55 PM CIVIL ENGINEERING PROJECT MANAGER): Managed by [facility]. Currently on Plaquenil and methotrexate and Orencia folic acid Mobic and gabapentin. Stressed she needs to be in contact with her airway controller on when and which medicines to stop for the surgery. Assessment & Plan (04/21/2024 8:49 PM CDT): Continue per [facility]. They currently manage [...] Plan (01/22/2024 8:17 PM CDT): Continue per [facility] as they manage her condition. Assessment & Plan (11/24/2023 9:58 AM CDT): Low cdai without inflammatory sounding pain. Will continue methotrexate 20 mg weekly, folic acid 2 mg daily, hydroxychloroquine 200 mg BID, and Orencia and monitor. Labs today as below. Follow up in 3 months or sooner as needed. Assessment & Plan (09/06/2023 9:42 AM CIVIL ENGINEERING PROJECT MANAGER): Rheumatoid arthritis is managed by [facility]. Currently on Plaquenil methotrexate Orencia and folic acid Assessment & Plan (09/01/2023 3:39 PM CIVIL ENGINEERING PROJECT MANAGER): Overall stable without notable synovitis and no inflammatory sounding pain. Will continue methotrexate 20 mg weekly, folic acid 2 mg daily, hydroxychloroquine 200 mg BID, and Orencia and monitor. Labs today as below. Follow up in 3 months or sooner as needed. Assessment & Plan (08/03/2023 8:28 AM CIVIL ENGINEERING PROJECT MANAGER): Continue with rheumatology. Assessment & Plan (06/30/2023 12:43 PM CIVIL ENGINEERING PROJECT MANAGER): Overall stable without notable synovitis and no inflammatory sounding pain. Will continue methotrexate 20 mg weekly, folic acid 2 mg daily, hydroxychloroquine 200 mg BID, and Orencia and monitor. Labs today as below. Assessment & Plan (06/02/2023 4:49 PM CIVIL ENGINEERING PROJECT MANAGER): Continue per Rheumatology Assessment & Plan (04/06/2023 7:35 PM CDT): Continue per Rheumatology. She has been in discussion with them on what medications to stop prior to her knee surgery. She states she was told to take all of her medicines accept the [facility]. Assessment & Plan (01/20/2023 8:12 PM CDT): Continue per [facility]umat[facility] Assessment & Plan (01/13/2023 3:42 [...] Plan (09/12/2022 6:06 PM CDT): Continue with [facility] Assessment & Plan (07/15/2022 1:41 PM CIVIL ENGINEERING PROJECT MANAGER): Low cdai. Significantly improved after [...] needed. Assessment & Plan (06/03/2022 3:37 PM CIVIL ENGINEERING PROJECT MANAGER): High cdai. Previously felt well controlled with current regimen. Due to burden of disease will give patient a triamcinolone injection. Patient made aware of SE of steroids including but not limited to HTN, increased blood glucose, cataracts, glaucoma, AVN, and osteoporosis with medical terminologist use. Should she flare again shortly [...] (01/23/2022 4:57 PM CDT): Continue management per [facility] Assessment & Plan (12/07/2021 9:02 AM CDT): Low cdai. Denies inflammatory sounding joint pain. Continue methotrexate 25 mg weekly, folic acid to 2 mg daily, Rinvoq 15 mg daily, hydroxychloroquine 200 mg BID, and cyclobenzaprine 5 mg qhs and monitor. Labs today as below. Plan for follow up in 3 months or sooner as needed. Assessment & Plan (09/11/2021 11:14 PM CIVIL ENGINEERING PROJECT MANAGER): Continue per [facility] Assessment & Plan (09/03/2021 11:25 AM CIVIL ENGINEERING PROJECT MANAGER): cdai = 12. Pt suspects [...] needed. Assessment & Plan (06/04/2021 10:25 AM CIVIL ENGINEERING PROJECT MANAGER): Low cdai. Denies inflammatory sounding pain at present. Will plan to continue methotrexate 25 mg weekly, folic acid to 2 mg daily, Rinvoq 15 mg daily, hydroxychloroquine 200 mg BID, and cyclobenzaprine 5 mg qhs and monitor. Labs today as below. Plan for follow up in 3 months or sooner as needed. Assessment & Plan (05/31/2021 9:15 PM CIVIL ENGINEERING PROJECT MANAGER): Continue per Rheumatology Assessment & Plan (05/29/2021 8:13 PM CIVIL ENGINEERING PROJECT MANAGER): Continue per Rheumatology. Currently on Plaquenil methotrexate and folic acid. Assessment & Plan (05/24/2021 10:38 AM CIVIL ENGINEERING PROJECT MANAGER): Continue per Rheumatology Assessment & [...] needed. Assessment & Plan (09/03/2020 12:22 PM CIVIL ENGINEERING PROJECT MANAGER): Low cdai. Continues to feel [...] needed. Assessment & Plan (08/31/2020 9:34 AM CIVIL ENGINEERING PROJECT MANAGER): Continue per [facility] Assessment & Plan (07/09/2020 12:22 PM CIVIL ENGINEERING PROJECT MANAGER): 64yoF with a h/o seropositive [...] time. Assessment & Plan (06/04/2020 11:14 AM CIVIL ENGINEERING PROJECT MANAGER): 64yoF with a h/o seropositive [...] needed. Assessment & Plan (05/14/2020 9:33 PM CIVIL ENGINEERING PROJECT MANAGER): Refer to new [employer] as Dr. Soto has . Assessment & Plan (02/18/2020 9:46 PM CDT): Continue per Rheum Assessment & Plan (08/13/2019 8:59 AM CIVIL ENGINEERING PROJECT MANAGER): Continue per Dr. Soto Assessment [...] hip worse by 10.8% Assessment & Plan (10/22/2024 1:05 PM CDT): Patient is awaiting recommendations from the bone metabolism group at [facility] Dr. Martinez. Appointment is scheduled in November. Has been on Reclast and Forteo. She also continues with vitamin-D Assessment & Plan (01/22/2024 8:08 PM CDT): Patient with osteoporosis. Has not been responding to Reclast. Forteo was tried by [facility] and she could [...] of her osteoporosis, recommended evaluation by the [facility], unfortunately their first available appt was in November 2024. Recommended today that she check with [facility] Osteoporosis center (at [facility]) to see how far out they are scheduling new patients, though she does not like this option due to distance from her house. Assessment & Plan (09/06/2023 9:40 AM CIVIL ENGINEERING PROJECT MANAGER): Managed by [facility]. Per patient they are making a referral to bone metabolism at [facility] she has not seen significant improvement with the Forteo or the Reclast. Assessment & Plan (09/01/2023 3:43 PM CIVIL ENGINEERING PROJECT MANAGER): DEXA: Lspine BMD 0.809 Tscore [...] of her osteoporosis, recommend evaluation by the [facility], provided contact info for Dr. Castillo. Pt in agreement with plan. Assessment & Plan (06/30/2023 12:49 PM CIVIL ENGINEERING PROJECT MANAGER): DEXA: Lspine BMD 0.809 Tscore [...] PM CDT): Continue to monitor. Managed by [facility]. Patient is on Reclast calcium vitamin-D [...] exercise Assessment & Plan (07/15/2022 1:42 PM CIVIL ENGINEERING PROJECT MANAGER): 01/27/2021 DEXA: Lspine -1.8, L femoral neck -1.9, L total hip -1.2, R femoral neck -2.3, R total hip -1.0, FRAX major 32% and hip 7%. Received Reclast 07/2021. Continue yearly Reclast, scheduled for 07/22 Assessment & Plan (06/03/2022 3:38 PM CIVIL ENGINEERING PROJECT MANAGER): 01/27/2021 DEXA: Lspine -1.8, L [...] Plan (01/23/2022 5:02 PM CDT): Managed by [facility] currently on Reclast calcium and vitamin-D Assessment & Plan (12/07/2021 9:04 AM CDT): 01/27/2021 DEXA: Lspine -1.8, L femoral neck -1.9, L total hip -1.2, R femoral neck -2.3, R total hip -1.0, FRAX major 32% and hip 7%. Received Reclast 07/2021. Continue yearly Reclast. Assessment & Plan (09/03/2021 11:26 AM CIVIL ENGINEERING PROJECT MANAGER): 01/27/2021 DEXA: Lspine -1.8, L femoral neck -1.9, L total hip -1.2, R femoral neck -2.3, R total hip -1.0, FRAX major 32% and hip 7%. Received Reclast 07/2021. Continue yearly reclast and daily vitamin D-calcium supplement. Assessment & Plan (06/04/2021 10:27 AM CIVIL ENGINEERING PROJECT MANAGER): 01/27/2021 DEXA: Lspine -1.8, L [...] order provided today, she will schedule at [facility] Assessment & Plan (12/24/2020 9:06 AM CDT): Continue Reclast thru Rheum Continue calcium, vitD and exercise Assessment & Plan (12/03/2020 10:45 AM CDT): Vitamin D level was 68. Received Reclast 07/09/2020. Last DEXA per available records was 01/31/2019, due this summer - order provided today, she will schedule at [facility] Assessment & Plan (09/03/2020 12:23 PM CIVIL ENGINEERING PROJECT MANAGER): Vitamin D level was 68. Received Reclast 07/09/2020. Last DEXA per available records was 01/31/2019, due this summer. Assessment & Plan (07/09/2020 12:23 PM CIVIL ENGINEERING PROJECT MANAGER): Overdue for Reclast, last infusion was 03/28/2019, will receive infusion today. Vitamin D level was 68 Last DEXA per available records was 01/31/2019 Assessment & Plan (06/04/2020 11:15 AM CIVIL ENGINEERING PROJECT MANAGER): Overdue for Reclast, last infusion was 03/28/2019, will check benefits. Recheck vitamin D level now. Last DEXA per available records was 01/31/2019 Assessment & Plan (02/18/2020 9:46 PM CDT): Calcium, vit D and exercise. Continue to monitor DXA Assessment & Plan (08/13/2019 8:58 AM CIVIL ENGINEERING PROJECT MANAGER): Continue with Calcium, Vit D and Exercise. Recheck DXA iin Fall 2019 with mammogram Resolved Problems Problem Noted Date Diagnosed Date Resolved Date Encounter for pre-operative examination 05/07/2024 10/09/2024 Assessment & Plan (05/07/2024 8:57 PM CIVIL ENGINEERING PROJECT MANAGER): I have examined this patient [...] Krishnamurthy. 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 Daniels Stressed importance of very close follow-up BMI 37.0-37.9, adult 09/06/2023 024 Assessment & Plan (10/13/2023 7:38 AM CDT): Discussed the patient's BMI. The BMI is above average. BMI management plan is completed. BMI Follow-up includes: nutrition counseling, exercise counseling and education provided. Assessment & Plan (09/06/2023 9:42 AM CIVIL ENGINEERING PROJECT MANAGER): Discussed the patient's BMI. The BMI is above average. BMI management plan is completed. BMI Follow-up includes: nutrition counseling, exercise counseling and education provided. Hyperglycemia 09/06/2023 09/06/2023 Positive depression screening 09/06/2023 09/06/2023 Annual physical exam 09/06/2023 024 Assessment & Plan (09/06/2023 9:43 AM CIVIL ENGINEERING PROJECT MANAGER): Encouraged healthy lifestyle, good nutrition and exercise. Encouraged Calcium and Vitamin D and weight bearing exercise for bone health. Reviewed immunizations Reviewed age appropirate screenings. Orthopedic aftercare 08/09/2023 025 Right knee pain 08/09/2023 09/06/2023 Sinus congestion 08/07/2023 09/06/2023 Assessment & Plan (08/07/2023 7:54 PM CIVIL ENGINEERING PROJECT MANAGER): Persistent sinusitis symptoms along with cough. Will start doxy b.i.d.. Start antihistamine (Claritin OR Zyrtec), Mucinex 12hour and Steroid nasal spray (Flonase). Push fluids. Rest. Supportive care. If sxs worsen or don\'t improve, pt is to followup in the office. BMI 35.0-35.9,adult 08/03/2023 09/06/19 24 Assessment & Plan (08/07/2023 7:51 PM CIVIL ENGINEERING PROJECT MANAGER): Discussed the patient's BMI. The BMI is above average. BMI management plan is completed. BMI Follow-up includes: nutrition counseling, exercise counseling and education provided. Assessment & Plan (08/03/2023 8:29 AM CIVIL ENGINEERING PROJECT MANAGER): Discussed the patient's BMI. The [...] 01/22/2024 Assessment & Plan (06/02/2023 4:57 PM CIVIL ENGINEERING PROJECT MANAGER): Later in the day received critical lab call for a CO2 value at 42. My staff contacted the patient and she was instructed to go to the ER for further evaluation to determine underlying cause. She states throughout the day she has noticed a little bit more shortness of breath. [facility] Charge nurse was notified of [...] surgery. Will defer cardiac clearance to her bottler helper. Her chronic medical conditions are stable. [facility] as instructed her to hold the Orencia [...] Ge Sexton on May 04 at [facility]. Need for vaccination for Strep pneumoniae 01/20/2023 [...] symptoms worsen or do not respond to [id number] allergy medicines within the next week she [...] provided. Assessment & Plan (08/23/2022 2:19 PM CIVIL ENGINEERING PROJECT MANAGER): Discussed the patient's BMI. The [...] plans Assessment & Plan (07/18/2022 10:20 AM CIVIL ENGINEERING PROJECT MANAGER): CT revealed pelvic lipomatosis that [...] 12/20/2022 Assessment & Plan (07/18/2022 10:21 AM CIVIL ENGINEERING PROJECT MANAGER): CT revealed pelvic lipomatosis that [...] plan, Assessment & Plan (07/08/2022 12:33 PM CIVIL ENGINEERING PROJECT MANAGER): Patient has had dysuria. She [...] 07/08/202204/06 Assessment & Plan (07/18/2022 10:21 AM CIVIL ENGINEERING PROJECT MANAGER): CT revealed pelvic lipomatosis that [...] plan, Assessment & Plan (07/08/2022 5:58 PM CIVIL ENGINEERING PROJECT MANAGER): Images from the original note [...] STAT abd/pelvis with and without contrast at [facility]. Check labs STAT. STAT CT Abd/pelvis without [...] 09/06/2023 Assessment & Plan (07/08/2022 12:33 PM CIVIL ENGINEERING PROJECT MANAGER): Patient has had dysuria. She [...] STAT abd/pelvis with and without contrast at [facility]. Check labs STAT. Assessment & Plan (07/06/2022 8:50 AM CIVIL ENGINEERING PROJECT MANAGER): Pt presents with dysuria. Urine [...] 35.00-39.99. Assessment & Plan (07/18/2022 10:23 AM CIVIL ENGINEERING PROJECT MANAGER): Discussed the patient's BMI. The BMI is above average. BMI management plan is completed. BMI Follow-up includes: nutrition counseling, exercise counseling and education provided. Assessment & Plan (07/08/2022 12:30 PM CIVIL ENGINEERING PROJECT MANAGER): Discussed the patient's BMI. The [...] She has received multiple injections from her airway controller regarding her knee but yesterday when she [...] 01/23/2022 Assessment & Plan (09/11/2021 11:28 PM CIVIL ENGINEERING PROJECT MANAGER): Patient has never had a full skin exam. She has quite a few lesions scattered and would benefit from a full exam. Will make referral Annual physical exam 09/11/2021 022 Assessment & Plan (09/11/2021 11:28 PM CIVIL ENGINEERING PROJECT MANAGER): Encouraged healthy lifestyle, good nutrition and exercise. Encouraged Calcium and Vitamin D and weight bearing exercise for bone health. Reviewed immunizations Reviewed age appropirate screenings. Cough 08/13/2021 01/23/2022 Assessment & Plan (08/13/2021 3:43 PM CIVIL ENGINEERING PROJECT MANAGER): Patient to presume positive COVID/FLU until results are available and plan to self isolate for up to 10 days from the onset of sxs. Check COVID/FLU test thru [facility] collection site in [place]. Let pt know the newest CDC recommendations [...] future. Assessment & Plan (07/13/2021 11:28 AM CIVIL ENGINEERING PROJECT MANAGER): I have ordered the patient [...] provided. Assessment & Plan (09/11/2021 11:27 PM CIVIL ENGINEERING PROJECT MANAGER): Obesity is unchanged. Discussed the patient's BMI. The BMI is above average. BMI management plan is completed. BMI Follow-up includes: nutrition counseling, exercise counseling and education provided. Assessment & Plan (05/29/2021 8:24 PM CIVIL ENGINEERING PROJECT MANAGER): Obesity is unchanged. Discussed the patient's BMI. The BMI is above average. BMI management plan is completed. BMI Follow-up includes: nutrition counseling, exercise counseling and education provided. Assessment & Plan (05/12/2021 1:26 PM CIVIL ENGINEERING PROJECT MANAGER): Obesity is unchanged. Discussed the patient's BMI. The BMI is above average. BMI management plan is completed. BMI Follow-up includes: nutrition counseling, exercise counseling and education provided. BMI 37.0-37.9, adult 05/12/2021 022 Assessment & Plan (09/11/2021 11:27 PM CIVIL ENGINEERING PROJECT MANAGER): Obesity is unchanged. Discussed the patient's BMI. The BMI is above average. BMI management plan is completed. BMI Follow-up includes: nutrition counseling, exercise counseling and education provided. Assessment & Plan (05/29/2021 8:24 PM CIVIL ENGINEERING PROJECT MANAGER): Obesity is unchanged. Discussed the patient's BMI. The BMI is above average. BMI management plan is completed. BMI Follow-up includes: nutrition counseling, exercise counseling and education provided. Assessment & Plan (05/12/2021 1:26 PM CIVIL ENGINEERING PROJECT MANAGER): Obesity is unchanged. Discussed the patient's BMI. The BMI is above average. BMI management plan is completed. BMI Follow-up includes: nutrition counseling, exercise counseling and education provided. Tinea corporis 04/14/2021 01/23/2022 Assessment & Plan (05/31/2021 9:15 PM CIVIL ENGINEERING PROJECT MANAGER): Improving with Lotrisone. Keep the area clean and dry Assessment & Plan (05/29/2021 8:24 PM CIVIL ENGINEERING PROJECT MANAGER): Lotrisone to pharmacy. Encouraged her to keep the area clean and dry use her dryer to dry the skin before applying the cream. She is to call if symptoms worsen or do not resolve. Need for immunization against influenza 04/14/2021 05/31/2021 Assessment & Plan (05/29/2021 8:24 PM CIVIL ENGINEERING PROJECT MANAGER): Fluid updated in the office Medicare annual wellness visit, subsequent 04/13/2021 05/31/2021 Assessment & Plan (05/29/2021 8:23 PM CIVIL ENGINEERING PROJECT MANAGER): Encouraged healthy lifestyle, good nutrition [...] and education provided. BMI 40.0-44.9, adult 09/23/2020 Assessment & Plan (09/23/2020 11:23 AM CDT): [...] 12/30/2020 Assessment & Plan (08/31/2020 9:31 AM CIVIL ENGINEERING PROJECT MANAGER): Error. This should be right calf but PT order sent and corrected so unable to remove. Fatigue 08/31/2020 09/06/2023 Assessment & Plan (04/06/2023 7:43 PM CDT): Probably multifactorial. Check labs and followup to re-evaluate Assessment & Plan (05/02/2022 9:16 PM CDT): Probably multifactorial. Check labs and followup to re-evaluate Assessment & Plan (08/31/2020 9:34 AM CIVIL ENGINEERING PROJECT MANAGER): Probably multifactorial. Check labs and followup to re-evaluate Pain in both lower extremities 08/31/2020 09/06/2023 Assessment & Plan (09/01/2023 3:41 PM CIVIL ENGINEERING PROJECT MANAGER): Cramping lower leg pain has [...] 021 Assessment & Plan (08/31/2020 9:33 AM CIVIL ENGINEERING PROJECT MANAGER): Obesity is unchanged. Discussed the patient's BMI. The BMI is above average. BMI management plan is completed. BMI Follow-up includes: nutrition counseling, exercise counseling and education provided. Pain of right calf 08/26/2020 Assessment & Plan (08/31/2020 9:31 AM CIVIL ENGINEERING PROJECT MANAGER): This is a significant, separately identifiable problem that was evaluated and managed on the same day as the wellness exam Unable to rule out DVT with her calf pain/sxs. Check STAT Venous doppler. Recvd Results and discussed with patient via phone. Negative for DVT. Recommend PT. Prefers [place] Annual physical exam 08/24/2020 021 Assessment & Plan (08/31/2020 9:34 AM CIVIL ENGINEERING PROJECT MANAGER): Encouraged healthy lifestyle, good nutrition and exercise. Encouraged Calcium and Vitamin D and weight bearing exercise for bone health. Reviewed immunizations Reviewed age appropirate screenings. Dizziness 05/07/2020 09/06/2023 Assessment & Plan (05/14/2020 9:35 PM CIVIL ENGINEERING PROJECT MANAGER): Suspect the dizziness is inner [...] imaging. Assessment & Plan (05/07/2020 1:49 PM CIVIL ENGINEERING PROJECT MANAGER): Declines to report to er [...] 05/14/2020 Assessment & Plan (05/07/2020 1:49 PM CIVIL ENGINEERING PROJECT MANAGER): Declines to report to er [...] 12/30/2020 Assessment & Plan (05/07/2020 1:49 PM CIVIL ENGINEERING PROJECT MANAGER): Declines to report to er [...] will f/u in office next week Acute otalgia, left 04/03/2020 12/31/19 21 Assessment & Plan (04/03/2020 11:45 AM CDT): Will start on antibiotics, continue with flonase Advised f/u in 72h if not improving, sooner if worsening Breast cancer screening by mammogram 02/18/2020 04/06/2023 Assessment & Plan (01/20/2023 8:14 PM CDT): Mammogram order provided Assessment & Plan (01/23/2022 5:00 PM CDT): Mammogram order provided Assessment & Plan (05/31/2021 9:15 PM CIVIL ENGINEERING PROJECT MANAGER): Mammogram order provided Assessment & Plan (02/18/2020 9:47 PM CDT): Mammogram order provided today Medicare annual wellness visit, subsequent 02/15/2020 02/15/2020 Precordial pain 09/04/2019 09/06/2023 Assessment & Plan (08/07/2023 7:50 PM CIVIL ENGINEERING PROJECT MANAGER): Workup in the hospital. Cardiology [...] inhaler. Assessment & Plan (07/13/2021 11:26 AM CIVIL ENGINEERING PROJECT MANAGER): The patient will continue with [...] is breathing well. Annual physical exam 08/13/2019 0814/ 020 Assessment & Plan (08/13/2019 8:59 AM CIVIL ENGINEERING PROJECT MANAGER): Encouraged healthy lifestyle, good nutrition and exercise. Encouraged Calcium and Vitamin D and weight bearing exercise for bone health. Reviewed immunizations Reviewed age appropirate screenings. Obesity, morbid, BMI 40.0-49.9 08/13/2019 09/23/2020 Assessment & Plan (08/26/2020 7:10 AM CIVIL ENGINEERING PROJECT MANAGER): Obesity is unchanged. Discussed the patient's BMI. The BMI is above average. BMI management plan is completed. BMI Follow-up includes: nutrition counseling, exercise counseling and education provided. Assessment & Plan (05/14/2020 9:33 PM CIVIL ENGINEERING PROJECT MANAGER): Obesity is unchanged. Discussed the [...] provided. Assessment & Plan (08/13/2019 8:58 AM CIVIL ENGINEERING PROJECT MANAGER): Obesity is unchanged. Discussed the [...] change Assessment & Plan (08/13/2019 9:01 AM CIVIL ENGINEERING PROJECT MANAGER): This is a significant, separately [...] 01/22/2024 Assessment & Plan (09/06/2023 9:42 AM CIVIL ENGINEERING PROJECT MANAGER): Probably multifactorial. Check labs and followup to re-evaluate Assessment & Plan (09/03/2021 11:28 AM CIVIL ENGINEERING PROJECT MANAGER): She notes increased fatigue and [...] re-evaluate Assessment & Plan (08/13/2019 9:08 AM CIVIL ENGINEERING PROJECT MANAGER): Probably multifactorial. Check labs and followup to re-evaluate Check labs prior to next visit BMI 40.0-44.9, adult 08/02/2019 020 Assessment & Plan (08/13/2019 8:57 AM CIVIL ENGINEERING PROJECT MANAGER): Obesity is unchanged. Discussed the patient's BMI. The BMI is above average. BMI management plan is completed. BMI Follow-up includes: nutrition counseling, exercise counseling and education provided. Assessment & Plan (08/02/2019 7:21 AM CIVIL ENGINEERING PROJECT MANAGER): Obesity is unchanged. Discussed the patient's BMI. The BMI is above average. BMI management plan is completed. BMI Follow-up includes: nutrition counseling, exercise counseling and education provided. Morbid obesity 08/02/2019 08/13/2019 Assessment & Plan (08/02/2019 7:20 AM CIVIL ENGINEERING PROJECT MANAGER): Obesity is unchanged. Discussed the patient's BMI. The BMI is above average. BMI management plan is completed. BMI Follow-up includes: nutrition counseling, exercise counseling and education provided. Acute non-recurrent maxillary sinusitis 08/02/2019 08/13/2019 Assessment & Plan (08/02/2019 7:47 AM CIVIL ENGINEERING PROJECT MANAGER): Start antibiotic, antihistamine, Mucinex and [...] She is being sent directly to [facility] and they were working her in today. [...] 21 Assessment & Plan (05/14/2020 9:33 PM CIVIL ENGINEERING PROJECT MANAGER): Completed Doxy and steroid. No [...] p.r.n. 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 She is on aspirin and statin Assessment & Plan (12/24/2020 9:03 AM CDT): Sxs stable. On ASA, statin and encouraged daily exercise. Assessment & Plan (02/18/2020 9:43 PM CDT): Continue per cardio. On ASA and statin Assessment & Plan (08/13/2019 8:45 AM CIVIL ENGINEERING PROJECT MANAGER): Continues with Dr. Alonso salmeron Assessment & Plan (11/01/2018 11:00 PM CDT): Pt sxs well controlled. 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 Continue [...] regimen Assessment & Plan (08/13/2019 8:46 AM CIVIL ENGINEERING PROJECT MANAGER): Continue current regimen Assessment & Plan (11/01/2018 10:53 PM CDT): Continue current regimen as stable Moderate single current epis ode of major depressive disorder 02/03/2017 08/31/2020 HTN (hypertension) 09/09/2016 Assessment & Plan (04/06/2023 7:39 PM CDT): [...] potassium Assessment & Plan (09/11/2021 11:26 PM CIVIL ENGINEERING PROJECT MANAGER): Bp is stable/in acceptable range for any co-morbidities. Encouraged to limit sodium intake and exercise for weight control. Currently stable without medication Assessment & Plan (05/29/2021 8:19 PM CIVIL ENGINEERING PROJECT MANAGER): Bp is stable/in acceptable range for any co-morbidities. Encouraged to limit sodium intake and exercise for weight control. Continue Lasix is helping with the swelling and addition. Blood pressure stable Assessment & Plan (05/24/2021 10:38 AM CIVIL ENGINEERING PROJECT MANAGER): Continue Lasix potassium Assessment & Plan (12/24/2020 9:05 AM CDT): Bp is stable/in acceptable range for any co-morbidities. Encouraged to limit sodium intake and exercise for weight control. Assessment & Plan (08/31/2020 9:32 AM CIVIL ENGINEERING PROJECT MANAGER): Bp is stable/in acceptable range for any co-morbidities. Encouraged to limit sodium intake and exercise for weight control. Stable with laxis currently Assessment & Plan (02/18/2020 9:44 PM CDT): Bp is stable/in acceptable range for any co-morbidities. Encouraged to limit sodium intake and exercise for weight control. Assessment & Plan (08/13/2019 8:57 AM CIVIL ENGINEERING PROJECT MANAGER): Bp is stable/in acceptable range [...] difficulty pulling them. Recommend finding some on [employer] that fit her calf that she can zip on and off. Showed them to her on [facility] and where to order them. She states she will try to get them. Assessment & Plan (05/31/2021 9:16 PM CIVIL ENGINEERING PROJECT MANAGER): Improving slowly. May have been due to the Relafen. She is on 60 of Lasix with potassium 10 mEq daily. Continue with current plan. Keep legs elevated. Utilize compressi to improve cleared. on hose. Call if symptoms worsen or do not continue to improve. Assessment & Plan (05/29/2021 8:23 PM CIVIL ENGINEERING PROJECT MANAGER): Persistent lower extremity edema that [...] CMP. Assessment & Plan (05/24/2021 10:39 AM CIVIL ENGINEERING PROJECT MANAGER): Patient that her swelling was improving since discharge for over the last day or so it seems to be increasing. Will increase the Lasix to 40mg Start K 10meq daily Recheck labs in 5 days Assessment & Plan (08/31/2020 9:33 AM CIVIL ENGINEERING PROJECT MANAGER): Continue lasix Palpitations 12/08/2015 12/30/2020 Overview (10/09/2016): Palpitations Other abnormal glucose 11/11/201508/31 Asthma 10/14/2015 12/24/2020 Assessment & Plan (08/13/2019 8:49 AM CIVIL ENGINEERING PROJECT MANAGER): Continue with current regimen and [...] noted. Assessment & Plan (08/23/2024 10:16 AM CIVIL ENGINEERING PROJECT MANAGER): 02/2021 XR L knee with mild to moderate OA, now s/p B TKA. Following with ortho as planned. Assessment & Plan (07/30/2024 11:23 AM CIVIL ENGINEERING PROJECT MANAGER): 02/2021 XR L knee with [...] March. Assessment & Plan (09/01/2023 3:42 PM CIVIL ENGINEERING PROJECT MANAGER): 02/2021 XR L knee with mild to moderate OA, R knee negative. Had injections with ortho without benefit, now s/p L TKA. Assessment & Plan (06/30/2023 12:46 PM CIVIL ENGINEERING PROJECT MANAGER): 02/2021 XR L knee with [...] g/d. Assessment & Plan (07/15/2022 1:41 PM CIVIL ENGINEERING PROJECT MANAGER): 02/2021 XR L knee with mild to moderate OA, R knee negative. Had injections with ortho with benefit. Unable to afford PT. Can continue Tylenol Arthritis, not to exceed 4 g/d. Assessment & Plan (06/03/2022 9:58 AM CIVIL ENGINEERING PROJECT MANAGER): 02/2021 XR L knee with [...] evaluation. Assessment & Plan (09/03/2021 11:27 AM CIVIL ENGINEERING PROJECT MANAGER): XR L knee with mild [...] able. Assessment & Plan (06/04/2021 10:27 AM CIVIL ENGINEERING PROJECT MANAGER): XR L knee with mild [...] above. Assessment & Plan (09/03/2020 12:23 PM CIVIL ENGINEERING PROJECT MANAGER): 10/27/2017 XR L knee: mild tricompartmental OA. Will continue meloxicam as above. Assessment & Plan (07/09/2020 12:24 PM CIVIL ENGINEERING PROJECT MANAGER): 10/27/2017 XR L knee: mild tricompartmental OA. Will continue meloxicam as above. In the future may consider trial of PT. Encounters Date Type Department Care Team Description 10/23/2024 1:00 PM CDT Office Visit [address] [place] [address] [phone] Alee Elizondo PA Acute non-recurrent sinusitis, unspecified location (Primary Dx); Acute cough; BMI 34.0-34.9,adult; Morbid obesity (HCC) 10/19/2024 Orders Only [address] [phone] ProviderTania MD 10/12/2024 Results Follow-Up [address] [place] [phone] Alee Elizondo PA 10/10/2024 7:30 AM CDT Office Visit [address] [place] [phone] Alee Elizondo PA Annual physical exam (Primary Dx); 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); Age-related osteoporosis without current pathological fracture; OWEN on CPAP; Moderate episode of recurrent major depressive disorder (HCC); Mixed hyperlipidemia; Pre-diabetes; Gastroesophageal reflux disease without esophagitis; Pelvic lipomatosis; BMI 35.0-35.9,adult; Morbid obesity (HCC) 10/10/[address] [place] [phone] Alee Elizondo PA Medication Request 10/07/2024 Orders Only [facility] Health Information Management [address] [place] [address] Alee Elizondo PA 10/04/2024 Results Follow-Up [address] [place] [phone] Alee Elizondo PA 10/04/2024 Orders Only [address] [place] [phone] ProviderTania MD 10/03/[address] [place] [phone] Alee Elizondo PA 09/26/2024 Orders Only [address] [place] [phone] Alee Elizondo PA Breast cancer screening by mammogram (Primary Dx) 09/25/2024 11:00 AM CDT Office Visit [facility] Care at [address] [phone] Jessica Collins NP Influenza A (Primary Dx); Acute cough 09/25/2024 Results Follow-Up [address] [place] [phone] Alee Elizondo PA 09/20/2024 8:00 AM CDT Office Visit [facility] Cardiology [address] [address] [place] [phone] Devika Marin MD Venous insufficiency (chronic) (peripheral) (Primary Dx); Mixed hyperlipidemia 09/20/2024 Telephone [facility] Orthopedics and Sports Medicine [address] [place] [address] [place] [phone] Michael Motta MD med clarification 09/14/[address] [phone] Codi Branham 09/13/2024 2:45 PM CDT Office Visit [facility] Orthopedics and Sports Medicine [address] [place] [address] [place] [phone] Michael Motta MD Chronic pain of right knee (Primary Dx); History of total knee arthroplasty, right 09/13/2024 1:44 PM CDT - 09/13/2024 11:59 PM CDT Hospital Encounter [facility] [address] [place] [address] Chronic pain of right knee Discharge Disposition: Discharge to home or self care 09/04/2024 Results Follow-Up [address] [place] [phone] Alee Elizondo PA 08/31/[address] [place] [phone] Alee Elizondo PA Medical Question/Miscellaneou s 08/31/2024 Orders Only [address] [place] [phone] Provider, MD Tania 08/29/2024 Nurse Triage [address] [place] [phone] Alee Elizondo PA 08/29/[address] [place] [phone] Shailesh Dunn MD Med Refill (Ropinirol HCL 0.5MG tab) 08/24/2024 Results Follow-Up [address] [phone] Sangita Farrar PA 08/23/2024 11:30 AM CIVIL ENGINEERING PROJECT MANAGER Office Visit [address] [phone] Sangita Farrar PA 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) (Primary Dx); Primary osteoarthritis involving multiple joints; Encounter for medication monitoring 08/23/2024 Orders Only [facility] Health Information Management [address] [place] [address] Alee Elizondo PA 08/23/[address] [place] [address] Sangita Farrar PA Orencia Approved 08/21/2024 Telephone [facility] [address] [place] [phone] Codi Branham from Last 3 Months Immunizations Immunization Administration Dates Next Due COVID-19 mRNA ([employer] Grounds K[employer]) 0.3 m L (30 mcg) vaccine (12 [...] 07/04/2024(Deferr ed: Patient Refused),03/30/2022 PPD TEST 05/11/2023 [employer] SARS-CoV-2 Monovalent Vaccination (12+ Yrs) [facility]OCK-READY TO [...] drink = 0.6 oz pur e alcohol) [facility] Utilities Answer Date Recorded In the past 12 months has [employer] electric, gas, oil, or water test company threatened to shut off services in [...] often do you attend chur ch or hoahaoism services? 1 to 4 times per year [...] any time in the past 12 [facility], were you homeless or living [...] on file Legal Sex Female 8:04 PM CIVIL ENGINEERING PROJECT MANAGER Gender Identity Female 02/15/2020 6:08 PM CDT Sexual Orientation Not on file Obstetrics History Last Filed Vital Signs Vital Sign Reading Time Taken Comments Blood Pressure 112/58 10/23/2024 1:03 PM CDT Pulse 91 10/23/2024 1:03 PM CDT Temperature 36.7 C (98 F) 10/23/2024 1:03 PM CDT Respiratory Rate 24 09/25/2024 10:54 AM CDT Oxygen Saturation 96% 10/23/2024 1:03 PM CDT Inhaled Oxygen Concentration - - Weight 83.5 kg (184 lb) 10/23/2024 1:03 PM CDT Height 154.9 cm (5' 1 ) 10/10/2024 7:40 AM CDT Body Mass Index 34.77 10/10/2024 7:40 AM CDT Plan of Treatment Health Maintenance Due Date Last Done Comments Hepatitis B Screening 1973 Covid-19 Vaccine ( season) 2024 08/17/2023, 04/14/2023, 04/14/2023, Additional history exists Osteoporosis Screening-Bone Density Scan 04/12/2025 04/12/2023, 01/27/2017, 07/11/2014 Breast Cancer Screening-Mammogram 10/04/2025 10/04/2024, 08/02/2023, 05/31/2022, Additional history exists Fall Risk Assessment 10/10/2025 10/10/2024, 06/05/2024, 04/11/2024, Additional history exists Well Visit 65+ 10/10/2025 10/10/2024, 03/2024, 09/06/2023, Additional history exists Depression Screening 10/23/2025 10/23/2024, 10/10/2024, 05/01/2024, Additional history exists Colon Cancer Screening-Colonoscopy 07/27/2026 [...] history exists Medical Devices Implanted Type Area External Grinder Tool Device Identifier Shelf Expiration Date Model / Serial / Lot [employer] Simplex P Radiopaque Full Dose Cement Bone Sterile 6191-1-010 - [id number] Implanted:Qty: 2 on 05/04/2023 by Michael Motta MD at [facility] Bone Cement Left: Knee [employer] 05/03/2025 6191-1-010 / 6191-1-001 / [id number] [employer] Simplex P Radiopaque Full Dose Cement Bone Sterile 6191-1-010 - [id number] Implanted:Qty: 2 on 05/30/2024 by Michael Motta MD at [facility] Bone Cement Right: Patella [employer] [id number] 05/03/2026 6191-1-010 / / [id number] [employer] Persona 14mm 30+ Mm Knee Tibia Taper Extension Stem [id number] - [id number] 4 - [id number] Implanted:Qty: 1 on 05/04/2023 by Michael Motta MD at [facility] Left: Knee [employer] [id number] 02/15/2033 [id number] / 13-4819-529- 14 / [id number] [employer] Persona Cemented Cruciate Retaining Knee Left 7 Narrow Component [id number] - G94-0641-874-9 1 - [id number] Implanted:Qty: 1 on 05/04/2023 by Michael Motta MD at [facility] Left: Knee [employer] [id number] 10/25/2032 [id number] / 55-8954-835- 01 / [id number] [employer] Baseplate Tibial Knee Cemented Left Fixed Stemmed Persona Size D Tivanium [id number] - Q40-7144-882-0 1 - [id number] Implanted:Qty: 1 on 05/04/2023 by Michael Motta MD at [facility] Left: Knee [employer] [id number] 09/11/2032 [id number] / 46-2604-025- 01 / [id number] [employer] Persona 11mm Knee Left 6-7 C-D Insert Articular Vivacit-E Sterile [id number] - M30-3630-569-8 1 - [id number] Implanted:Qty: 1 on 05/04/2023 by Michael Motta MD at [facility] Left: Knee [employer] [id number] 12/28/2025 [id number] / 36-5249-189- 11 / [id number] [employer] Persona 32mm Knee Component Patellar All Poly Latex Free 24-8515-214-32 - [id number] Implanted:Qty: 1 on 05/04/2023 by Michael Motta MD at [facility] [employer] 12/19/2027 [id number] / / [id number] [employer] Baseplate Tibial Knee Cemented Right Fixed Stemmed Persona Size C Tivanium [id number] - [id number] Implanted:Qty: 1 on 05/30/2024 by Michael Motta MD at [facility] Right: Knee [employer] [id number] 03/22/2033 [id number] / / [id number] [employer] Persona 29mm Knee Component Patellar All Poly Latex Free [id number] - [id number] Implanted:Qty: 1 on 05/30/2024 by Michael Motta MD at [facility] Right: Knee [employer] [id number] 12/18/2028 [id number] / / [id number] [employer] Persona 13mm Cruciate Retain Knee Right 6-7 Cd Insert Articular Latex Free [id number] - [id number] Implanted:Qty: 1 on 05/30/2024 by Michael Motta MD at [facility] Right: Patella [employer] [id number] 05/04/2025 [id number] / / [id number] [employer] Persona Cruciate Retaining Cemented Knee Right 7 Narrow Component [id number] - [id number] Implanted:Qty: 1 on 05/30/2024 by Michael Motta MD at [facility] Right: Knee [employer] [id number] 12/27/2033 [id number] / / [id number] [employer] Persona 14mm 30+ Mm Knee Tibia Taper Extension Stem [id number] - [id number] Implanted:Qty: 1 on 05/30/2024 by Michael Motta MD at [facility] Right: Knee [employer] [id number] 04/11/2034 [id number] / / [id number] Procedures Procedure Name Priority Date/Time Associated Diagnosis Comments POC INFLUENZA A/B, COVID-19 ANTIGEN Routine 10/23/2024 1:14 PM CDT Acute cough URINE CULTURE Routine 10/10/2024 2:46 PM CDT SCAN - LABS 10/07/2024 SCREENING MAMMOGRAM BILATERAL [...] Read Routine (OP Routine) 08/29/2024 12:23 PM CIVIL ENGINEERING PROJECT MANAGER COMPREHENSIVE METABOLIC PANEL Routine 08/23/2024 2:11 PM CIVIL ENGINEERING PROJECT MANAGER Encounter for medication monitoring CBC WITH AUTO DIFFERENTIAL Routine 08/23/2024 2:11 PM CIVIL ENGINEERING PROJECT MANAGER Encounter for medication monitoring SCAN - LABS 08/23/2024 DEXA AXIAL SKELETON BONE DENSITY 1 OR MORE SITES Schedule Routine, Read Routine (OP Routine) 04/12/2023 8:14 AM CDT COLONOSCOPY Routine 07/27/2021 HEPATITIS C ANTIBODY Routine 06/04/2020 10:29 AM CIVIL ENGINEERING PROJECT MANAGER Encounter for screening for other viral diseases Chronic fatigue from Last 3 Months or Most Recently Relevant to Health Maintenance Results * POC Influenza A/B, COVID-19 antigen (10/23/2024 1:14 PM CDT) Influenza A Ag, POC Negative Negative [facility] Influenza B Ag, POC Negative Negative [facility] COVID-19 Ag POC Presumptive Negative Presumptive Negative, Invalid [facility] Nasal 10/23/2024 1:14 PM CDT Alee OSMAN POINT OF CARE TEST ORDERAB LES Final Result [facility] [address] [facility] [place] [address] * (ABNORMAL) Urine culture (10/10/2024 2:46 PM CDT) SCRIBED Urine Culture, Routine 100,000 Historical Provider MD LAB MICROBIOLOGY - GENERA L ORDERABLES Edited Result - Final * SCAN - LABS (10/07/2024) Alee OSMAN [...] TEST ORDERABLES Final Result Performing Organization Address [facility]/ZIP Co de Phone Number [facility] [address] [place] [address], [facility] * XR Knee Right 3 Views [...] John Sparrow M.D. RB T: Report ID: [id number] Reading Location: [id number] Procedure Note John Sparrow MD - 09/18/2024 [...] John Sparrow M.D. RB T: Report ID: [id number] Reading Location: [id number] Michael Motta MD IMG XR PROCEDURES Final Re sult * (ABNORMAL) CT Abdomen Pelvis W Contrast (08/29/2024 12:23 PM CIVIL ENGINEERING PROJECT MANAGER) Anatomical Region Laterality Modality Body N/A Computed Tomogra phy Historical Provider MD [facility] CT PROCEDURES Edited Result - Final * CBC with auto differential (08/23/2024 2:11 PM CIVIL ENGINEERING PROJECT MANAGER) WBC 4.8 3.8 - 10.8 [...] [facility] Blood 08/23/2024 2:11 PM CIVIL ENGINEERING PROJECT MANAGER 08/23/2024 2:11 PM CIVIL ENGINEERING PROJECT MANAGER Sangita OSMAN LAB BLOOD ORDERABLES Vy gabriele Result [facility] [address] [address] [phone] * (ABNORMAL) Comprehensive metabolic panel (08/23/2024 2:11 PM CIVIL ENGINEERING PROJECT MANAGER) Glucose 188(H) 65 - 99 [...] [facility] Blood 08/23/2024 2:11 PM CIVIL ENGINEERING PROJECT MANAGER 08/23/2024 2:11 PM CIVIL ENGINEERING PROJECT MANAGER Result [facility] Sangita OSMAN LAB BLOOD ORDERABLES Vy l Result Performing Organization Address [facility]/ZIP Co de Phone Number [employer] [facility] [address] [place] [address] * SCAN - LABS (08/23/2024) Result [facility] Alee OSMAN Final Resu lt * (ABNORMAL) Dexa Axial Skeleton Bone Density 1 or 2 Site (04/12/2023 8:14 AM CDT) Anatomical Region Laterality Modality Body N/A Radiographic Melanie ging Result [facility] Historical Provider IMG DXA PROCEDURES Edited Result - Final * Colonoscopy (07/27/2021) Anatomical Region Laterality Modality Other Result [facility] Historical Provider ENDOSCOPY PROCEDURES Vy l Result * Hepatitis C antibody (06/04/2020 10:29 AM CIVIL ENGINEERING PROJECT MANAGER) Hep C Ab NON-REACTI VE NON-REACT ALEXYS [facility] SIGNAL TO CUT-OFF 0.02 <1.00 [facility] Comment: HCV antibody was non-reactive. There is no laboratory evidence of HCV infection. In most cases, no further action is required. However, if recent HCV exposure is suspected, a test for HCV RNA (test code 48215) is suggested. For additional information please refer to http://education.Dogster/faq/HKD92s3 (This link is being provided for informational/ educational purposes only.) Blood specimen (specimen) 06/04/2020 10:29 AM CIVIL ENGINEERING PROJECT MANAGER 06/04/2020 10:30 AM CIVIL ENGINEERING PROJECT MANAGER Result [facility] Sangita OSMAN LAB MICROBIOLOGY - GENERA L ORDERABLES Final Result Performing Organization Address City/[facility]/ZIP Co de Phone Number [employer] [facility] [address] [address] [phone] from Last 3 Months or Most Recently Relevant to Health Maintenance Insurance [facility] UHC MEDICARE ADVANTAGE UHC MEDICARE ADVANTAGE Advance Directives For more information, please contact: [phone] Documents on File Type Date Recorded Patient Recruiting Assistant Expl anation ADVANCE DIRECTIVE 05/17/2024 2:13 PM [employer] English Teacher-Medical * Full Code (Latest Code Status on File) Date Activated Date Inactivated Comments 05/30/2024 12:38 PM 06/05/2024 6:31 PM * Full Code Date Activated Date Inactivated Comments 05/04/2023 2:33 PM 05/07/2023 3:07 AM * Full Code Date Activated Date Inactivated Comments 03/22/2021 4:39 PM 03/25/2021 6:17 PM Care Teams Childbirth And Infant Care Teacher Relationship Specialty Start Date End Date Alee Elizondo PA [address] [facility] [address] [place] [address] PCP - General Internal Medicine 07/05/23 Sharan Linton MD Referring Physician Gastroenterology 10/31/18 Martha Starks MD Consulting Physician Cardiology 12/24/20 Shama Hines MD [address] [facility], [facility] [address] [place] [address] Consulting Physician Pain Management 01/19/21 Artis Grewal MD [address] [place] [address] Consulting Physician Rheumatology 01/30/21 Amy Mayes NP [address] [place] [address] Nurse Practitioner Cardiovascular Disease 04/20/24 Shailesh Dunn MD [address] [facility] [address] [place] [address] Consulting Physician Pulmonary Disease 04/20/24 Sangita Farrar PA [address] [place] [address] Physician Meal Cooker Rheumatology 05/15/24
--- OUTSIDE RECORDS SUMMARY | 2024-11-05 15:48 | XMS_ITS | Encounter Summary ---
Author Organization [facility] Facility Care Team Providers Care Valuer Name Role Phone Alee Elizondo Primary Care Provider + [phone] Sharan Linton MD Unavailable [phone] Taisha Gomez MD Unavailable [phone] Parag Soto MD Unavailable [phone] RaziaMartha singh MD Unavailable [phone] Puneet Uribe MD Unavailable Shama [place] MD Unavailable Artis Grewal MD Unavailable [phone] Harrison Pena RN Unavailable [phone] Nafisa Gregg RN Unavailable Tho Kelsey MD Primary Care Provider [phone] Alee Elizondo Primary Care Provider + [phone] Amy Mayes NP Unavailable [phone] Shailesh Dunn MD Unavailable [phone] Sangita Farrar Unavailable [phone] Encounter Details Date Type Department Care Team (Latest Contact Info) Description 06/28/2016 Orders Only [facility] Provider, MD Tania [address] [place] [id number] Social History Tobacco Use Types Packs/Day Years Used Date Smoking Tobacco: Never Alcohol Use Standard Drinks/Week Comments No 0 (1 standard drink = 0.6 oz pur e alcohol) Comments Unknown Sex and Gender Information Value Date Recorded Sex Assigned at Not on file Legal Sex Female 8:04 PM OPERATIONS INTERN Gender Identity Female 02/15/2020 6:08 PM CDT Sexual Orientation Not on file documented as of this encounter Plan of Treatment Not on file documented as of this encounter Procedures Procedure Name Priority Date/Time Associated Diagnosis Comments SCAN - LABS 06/29/2016 12:00 AM OPERATIONS INTERN documented in this encounter Results * SCAN - LABS (06/29/2016 12:00 AM OPERATIONS INTERN) Narrative 06/29/2016 12:00 AM OPERATIONS INTERN Ordered by an unspecified provider. Historical Provider MD Final Res ult documented in this encounter Visit Diagnoses Not on filedocumented in this encounter Additional Health Concerns Infection Onset Date Last Indicated Resolved Time COVID: Suspected 08/13/2021 08/14/2021 08/14/2021 3:06 AM OPERATIONS INTERN COVID: Suspected 08/14/2021 08/14/2021 08/15/2021 3:05 AM OPERATIONS INTERN COVID: Suspected 08/14/2021 08/14/2021 08/15/2021 6:25 AM OPERATIONS INTERN COVID: Suspected 06/02/2023 06/02/2023 06/02/2023 7:25 PM OPERATIONS INTERN COVID: Suspected 07/26/2023 07/26/2023 07/26/2023 3:10 PM OPERATIONS INTERN COVID: Suspected 09/25/2024 09/25/2024 09/25/2024 11:03 AM CDT Influenza, adult 09/25/2024 09/25/2024 10/02/2024 3:05 AM CDT COVID: Suspected 10/23/2024 10/23/2024 10/23/2024 1:15 PM CDT documented as of this encounter Care Teams Valuer Relationship Specialty Start Date End Date Alee Elizondo PA [address] [facility] [address] [place] [address] PCP - General Internal Medicine 02/01/17 06/29/23 Tho Kelsey MD [address] [place] [address] [address] [facility] [address] [place] [address] PCP - General Family Medicine 06/30/23 07/04/23 Alee Elizondo PA [address] [facility] [address] [place] [address] PCP - General Internal Medicine 07/05/23 Sharan Linton MD [address] [facility] [address] [place] [address] Referring Physician Gastroenterology 10/31/18 Taisha Gomez MD [address] [facility] [address] [place] [address] Referring Physician Pulmonary Disease 10/31/18 12/23/20 Parag Soto MD [address] [facility] [address] [place] [address] Referring Physician Rheumatology 10/31/18 12/23/20 Martha Starks MD [address] [facility] [address] [place] [address] Consulting Physician Cardiology 12/24/20 Puneet Uribe MD [address] [facility] [address] [place] [address] Consulting Physician Rheumatology 12/24/20 01/29/21 Shama Hines MD [address] [facility], [facility] [address] [place] [address] Consulting Physician Pain Management 01/19/21 Artis Grewal MD [address] [place] [address] Consulting Physician Rheumatology 01/30/21 Harrison Pena, JULIUS [address] [place] [address] Child Development Specialist 05/30/23 09/04/23 Nafisa Gregg, JULIUS [address] [place] [address] [facility] [address] [place] [address] Child Development Specialist 06/06/23 06/12/23 Amy Mayes NP [address] [facility] [address] [place] [address] Nurse Practitioner Cardiovascular Disease 04/20/24 Shailesh Dunn MD [address] [facility] [address] [place] [address] Consulting Physician Pulmonary Disease 04/20/24 Sangita Farrar PA [address] [place] [address] Physician Telephone Interviewer Rheumatology 05/15/24 documented as of this encounter
--- OUTSIDE RECORDS SUMMARY | 2024-11-05 15:48 | XMS_ITS | Referral Summary ---
Author [place] [facility] [place] [address] Address [address] [place] [address] Care Team Providers Care English Language Learner Teacher Name Role Phone Sharan Linton MD Unavailable [phone] Martha Starks MD Unavailable [phone] Shama Hines MD Unavailable Artis Grewal MD Unavailable [phone] Alee Elizondo Primary Care Provider [phone] Amy Mayes NP Unavailable [phone] Shailesh Dunn MD Unavailable [phone] Sangita Farrar Unavailable [phone] Encounters Date Type Department Care Team Description 10/23/2024 1:00 PM CDT Office Visit [address] [place] [address] Alee Elizondo PA Acute non-recurrent sinusitis, unspecified location (Primary Dx); Acute cough; BMI 34.0-34.9,adult; Morbid obesity (HCC) 10/19/2024 Orders Only [address] [place] [address] Provider, MD Tania 10/12/2024 Results Follow-Up [address] [place] [address] Alee Elizondo PA 10/10/[address] [place] [address] Alee Elizondo PA Medication Request 10/10/2024 7:30 AM CDT Office Visit [address] [place] [address] Alee Elizondo PA Annual physical exam (Primary Dx); 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); Age-related osteoporosis without current pathological fracture; OWEN on CPAP; Moderate episode of recurrent major depressive disorder (HCC); Mixed hyperlipidemia; Pre-diabetes; Gastroesophageal reflux disease without esophagitis; Pelvic lipomatosis; BMI 35.0-35.9,adult; Morbid obesity (HCC) 10/07/2024 Orders Only [facility] [place] Information Management [address] [place] [address] Alee Elizondo PA 10/04/2024 Results Follow-Up [address] [place] [phone] Alee Elizondo PA 10/04/2024 Orders Only [address] [place] [address] Tania Michael MD 10/03/[address] [place] [address] Alee Elizondo PA 09/26/2024 Orders Only [address] [place] [address] Alee Elizondo PA Breast cancer screening by mammogram (Primary Dx) 09/25/2024 Results Follow-Up [address] [place] [address] Alee Elizondo PA 09/25/2024 11:00 AM CDT Office Visit [facility] [place] [address] [place] [address] Jessica Collins NP Influenza A (Primary Dx); Acute cough 09/20/2024 Telephone [facility]ics [facility] Sports Medicine [address] [facility] [facility] [address] [place] [address] Michael Motta MD med clarification 09/20/2024 8:00 AM CDT Office Visit [facility] Cardiology [address] [facility] [address] [place] [address] Devika Marin MD Venous insufficiency (chronic) (peripheral) (Primary Dx); Mixed hyperlipidemia 09/14/[address] [address] Codi Branham 09/13/2024 1:44 PM CDT - 09/13/2024 11:59 PM CDT Hospital Encounter [facility] Di[facility] Imaging [address] [place] [address] Chronic pain of right knee Discharge Disposition: Discharge to home or self care 09/13/2024 2:45 PM CDT Office Visit [facility] Orthopedics [facility] Sports [facility] [facility] [address] [place] [address] Michael Motta MD Chronic pain of right knee (Primary Dx); History of total knee arthroplasty, right 09/04/2024 Results Follow-Up [facility] [address] [place] [address] [address] [place] [address] Alee Elizondo PA 08/31/2024 Telephone [facility] [address] [place] [address] [address] [place] [address] Alee Elizondo PA Medical Question/Miscellaneou s 08/31/2024 Orders Only [facility] [address] [place] [address] [address] [place] [address] Provider, Historical, MD 08/29/2024 Nurse Triage [facility] Family Medicine [address] [place] [address] Alee Elizondo PA 08/29/2024 Telephone [facility] Pulmonary [place] [address] [facility] [address] [facility] [address] [place] [address] Shailesh Dunn MD Med Refill (Ropinirol HCL 0.5MG tab) 08/24/2024 Results Follow-Up [address] [address] Sangita Farrar PA 08/23/2024 Orders Only [facility] [place] [address] [place] [address] Alee Elizondo PA 08/23/[address] [address] Sangita Farrar PA Orencia Approved 08/23/2024 11:30 AM FRENCH FOLDER Office Visit [address] [address] Sangita Farrar PA 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) (Primary Dx); Primary osteoarthritis involving multiple joints; Encounter for medication monitoring 08/21/[address] [address] Codi Branham from Last 3 Months Allergies Active Allergy [...] a day as needed (to the scalp) Active docusate sodium (COLACE) 100 mg capsuleIndication [...] She has had evaluation by Urology at [facility] and has been told there is [...] prescribed. Assessment & Plan (08/07/2023 7:55 PM FRENCH FOLDER): Persistent sinusitis symptoms along with cough. Will [...] provided. Assessment & Plan (05/07/2024 8:56 PM FRENCH FOLDER): Discussed the patient's BMI. The BMI is [...] provided. Assessment & Plan (09/06/2023 9:38 AM FRENCH FOLDER): Discussed the patient's BMI. The BMI is above average. BMI management plan is completed. BMI Follow-up includes: nutrition counseling, exercise counseling and education provided. Patient has an obesity-related condition (not limited to: hypertension, obstructive sleep apnea, osteoarthritis, hyperlipidemia, diabetes, etc.). Therefore, morbid obesity may be documented for patients with a BMI between 35.00-39.99. Assessment & Plan (08/07/2023 7:51 PM FRENCH FOLDER): Discussed the patient's BMI. The BMI is above average. BMI management plan is completed. BMI Follow-up includes: nutrition counseling, exercise counseling and education provided. Patient has an obesity-related condition (not limited to: hypertension, obstructive sleep apnea, osteoarthritis, hyperlipidemia, diabetes, etc.). Therefore, morbid obesity may be documented for patients with a BMI between 35.00-39.99. Assessment & Plan (08/03/2023 7:45 AM FRENCH FOLDER): Discussed the patient's BMI. The BMI is above average. BMI management plan is completed. BMI Follow-up includes: nutrition counseling, exercise counseling and education provided. Primary osteoarthritis of right knee 07/08/2023 Assessment & Plan (05/07/2024 8:56 PM FRENCH FOLDER): Patient has arthritis in the right knee. Planning a total knee replacement with Dr. Alexus Motta on May 30 Assessment & Plan (08/03/2023 8:28 AM FRENCH FOLDER): Continue per ortho. She is seeing some improvement but it is difficult to know if the knee is rheumatoid versus osteo versus other etiology. Will await recommendations from JACQUI Raya but definitely encouraged her to become active as soon as possible. Status post total knee replacement using cement, right 05/19/2023 Assessment & Plan (06/02/2023 4:56 PM FRENCH FOLDER): Status post total knee replacement with Dr. Ge Sexton 04 May. She has just been released from rehab following up for her TCM visit. She appears to have an area of cellulitis at the incision site. She is also complaining of increased pain. Will check CBC CMP and inflammatory markers along with an x-ray. She plans to go to [facility] for the workup. Will follow up [...] provided. Assessment & Plan (06/02/2023 8:27 AM FRENCH FOLDER): Discussed the patients BMI: The BMI is [...] 12/20/2022 Assessment & Plan (05/07/2024 8:55 PM FRENCH FOLDER): Patient is on medication for her rheumatoid arthritis managed by [facility] Assessment & Plan (01/22/2024 8:13 PM CDT): Medications from [facility] contribute to her immunosuppressive state. Assessment & Plan (09/06/2023 9:41 AM FRENCH FOLDER): Medications are managed by [facility] for her rheumatoid arthritis Assessment & Plan (04/06/2023 7:44 PM CDT): Managed by [facility]. Currently on Plaquenil methotrexate Orencia folic [...] She has had evaluation by Urology at [facility] and has been told there is [...] capacity. Assessment & Plan (09/06/2023 9:41 AM FRENCH FOLDER): Continue per . She did not tolerate [...] Pate. Assessment & Plan (07/18/2022 10:20 AM FRENCH FOLDER): CT revealed pelvic lipomatosis that is compressing [...] 02/11/2022 Assessment & Plan (09/06/2023 9:41 AM FRENCH FOLDER): No change. Dysfunction of both eustachian tubes 02/11/2022 Myalgia, lower leg 01/11/2022 PLMD (periodic limb movement disorder) Assessment & Plan (08/02/2024 11:49 AM FRENCH FOLDER): Asymptomatic Assessment & Plan (06/22/2022 10:31 AM FRENCH FOLDER): Will continue Requip 1 mg nightly Assessment [...] bedtime. Assessment & Plan (07/13/2021 11:25 AM FRENCH FOLDER): Due to the patient stating that she [...] 06/04/2020 Assessment & Plan (08/23/2024 10:16 AM FRENCH FOLDER): Hepatitis negative 06/2020 Tspot negative 06/2020 Continue routine lab monitoring Maintain routine eye exams throughout the duration of taking hydroxychloroquine Assessment & Plan (07/30/2024 8:24 AM FRENCH FOLDER): Hepatitis negative 06/2020 Tspot negative 06/2020 Continue [...] hydroxychloroquine Assessment & Plan (09/01/2023 8:34 AM FRENCH FOLDER): Hepatitis negative 06/2020 Tspot negative 06/2020 Continue routine lab monitoring Maintain routine eye exams throughout the duration of taking hydroxychloroquine Assessment & Plan (06/29/2023 2:19 PM FRENCH FOLDER): Hepatitis negative 06/2020 Tspot negative 06/2020 Continue [...] hydroxychloroquine Assessment & Plan (07/14/2022 2:58 PM FRENCH FOLDER): Hepatitis negative 06/2020 Tspot negative 06/2020 Continue routine lab monitoring Maintain routine eye exams throughout the duration of taking hydroxychloroquine Assessment & Plan (06/03/2022 9:58 AM FRENCH FOLDER): Hepatitis negative 06/2020 Tspot negative 06/2020 Continue [...] hydroxychloroquine Assessment & Plan (09/03/2021 8:29 AM FRENCH FOLDER): Hepatitis negative 06/2020 Tspot negative 06/2020 Continue routine lab monitoring Maintain routine eye exams throughout the duration of taking hydroxychloroquine Assessment & Plan (06/03/2021 4:17 PM FRENCH FOLDER): Hepatitis negative 06/2020 Tspot negative 06/2020 Continue [...] hydroxychloroquine Assessment & Plan (09/02/2020 1:16 PM FRENCH FOLDER): Hepatitis negative 06/2020 Tspot negative 06/2020 Continue routine lab monitoring Maintain routine eye exams throughout the duration of taking hydroxychloroquine Assessment & Plan (07/09/2020 12:23 PM FRENCH FOLDER): Hepatitis negative 06/2020 Tspot negative 06/2020 Continue [...] 08/13/2019 Assessment & Plan (05/07/2024 8:54 PM FRENCH FOLDER): Patient with chronic constipation. Has been on [...] linzess Assessment & Plan (08/13/2019 8:57 AM FRENCH FOLDER): On Movantik with Dr. Soto Herpes zoster [...] diabetes. Assessment & Plan (05/07/2024 8:55 PM FRENCH FOLDER): Pre-diabetes/hyperglycemia is a precursor to Dm. Stressed [...] diabetes. Assessment & Plan (09/06/2023 9:40 AM FRENCH FOLDER): Pre-diabetes/hyperglycemia is a precursor to Dm. Stressed [...] diabetes. Assessment & Plan (09/11/2021 11:22 PM FRENCH FOLDER): Pre-diabetes/hyperglycemia is a precursor to Dm. Stressed importance of working on diet (decrease your simple sugars and one carbohydrate with each meal) and increase you exercise to achieve weight loss and this will help prevent you from progressing to diabetes. Assessment & Plan (05/29/2021 8:18 PM FRENCH FOLDER): Pre-diabetes/hyperglycemia is a precursor to Dm. Stressed [...] diabetes. Assessment & Plan (08/31/2020 9:34 AM FRENCH FOLDER): Pre-diabetes is a precursor to Dm. Stressed [...] diabetes. Assessment & Plan (08/13/2019 9:00 AM FRENCH FOLDER): This is a significant, separately identifiable problem [...] b.I.d. Assessment & Plan (05/07/2024 8:54 PM FRENCH FOLDER): Depression symptoms are stable with Wellbutrin XL 150 Cymbalta 60 b.i.d. Assessment & Plan (04/21/2024 8:50 PM CDT): Depression symptoms are stable with the Wellbutrin XL 150 and Cymbalta 60 b.i.d. Assessment & Plan (01/22/2024 8:11 PM CDT): Depression symptoms are stable with Wellbutrin and Cymbalta Assessment & Plan (09/06/2023 9:40 AM FRENCH FOLDER): Depression is stable with Wellbutrin and Cymbalta Assessment & Plan (08/03/2023 8:31 AM FRENCH FOLDER): Stable with Cymbalta 60 and Wellbutrin XL [...] Cymbalta Assessment & Plan (09/11/2021 11:26 PM FRENCH FOLDER): Continue Wellbutrin and Cymbalta Assessment & Plan (05/29/2021 8:22 PM FRENCH FOLDER): Continue Wellbutrin and Cymbalta Assessment & Plan (05/24/2021 10:39 AM FRENCH FOLDER): Continue Wellbutrin and Cymbalta Assessment & Plan (12/24/2020 9:07 AM CDT): Continue wellbutrin and cymbalta Assessment & Plan (08/31/2020 9:35 AM FRENCH FOLDER): Continue wellbutrin and cymbalta Assessment & Plan (02/18/2020 9:47 PM CDT): Stable with the Cymbalata Assessment & Plan (08/13/2019 8:59 AM FRENCH FOLDER): Stable with Cymbalta and Wellbutrin Assessment & [...] regimen. Med list updated to reflect the [id number] one daily and Prozac 40mg. Mixed hyperlipidemia 03/29/2018 Assessment & Plan (10/22/2024 1:06 PM CDT): Encouraged patient to follow low fat/low chol diet like the Mediterranean diet. Increase good fats in the diet. Increase exercise. Monitor labs as needed. Continue Crestor 10 Assessment & Plan (05/07/2024 8:54 PM FRENCH FOLDER): Encouraged patient to follow low fat/low chol [...] statin Assessment & Plan (09/06/2023 9:42 AM FRENCH FOLDER): Encouraged patient to follow low fat/low chol [...] statin Assessment & Plan (09/11/2021 11:26 PM FRENCH FOLDER): Encouraged patient to follow low fat/low chol diet like the Mediterranean diet. Increase good fats in the diet. Increase exercise. Monitor labs as needed. Continue statin Assessment & Plan (05/29/2021 8:22 PM FRENCH FOLDER): Encouraged patient to follow fat/low chol diet like the Mediterranean diet. Increase good fats in the diet. Increase exercise. Monitor labs as needed. Continue statin Assessment & Plan (05/24/2021 10:39 AM FRENCH FOLDER): Encouraged patient to follow fat/low chol diet like the Mediterranean diet. Increase good fats in the diet. Increase exercise. Monitor labs as needed. Continue statin Assessment & Plan (12/24/2020 9:07 AM CDT): Encouraged patient to follow fat/low chol diet like the Mediterranean diet. Increase good fats in the diet. Increase exercise. Monitor labs as needed. Continue statin Assessment & Plan (08/31/2020 9:34 AM FRENCH FOLDER): Encouraged patient to follow fat/low chol diet like the Mediterranean diet. Increase good fats in the diet. Increase exercise. Monitor labs as needed. Continue statin Assessment & Plan (02/18/2020 9:46 PM CDT): Encouraged patient to continue low fat/low chol diet. Continue exercise. Increase good fats in the diet. Monitor labs as needed. Assessment & Plan (08/13/2019 8:59 AM FRENCH FOLDER): Encouraged patient to continue low fat/low chol [...] future Assessment & Plan (09/06/2023 9:40 AM FRENCH FOLDER): Continue PPI Assessment & Plan (04/06/2023 7:36 PM CDT): Continue PPI p.r.n. Assessment & Plan (01/20/2023 8:13 PM CDT): Continue PPI Assessment & Plan (09/12/2022 6:13 PM CDT): Continue PPI p.r.n. Assessment & Plan (06/03/2022 3:40 PM FRENCH FOLDER): Pyrosis poorly controlled on Nexium. Pt has [...] PPI Assessment & Plan (09/11/2021 11:26 PM FRENCH FOLDER): Continue PPI Assessment & Plan (12/24/2020 9:05 AM CDT): Continue PPI Assessment & Plan (02/18/2020 9:45 PM CDT): Continue PPI. Saw Dr. Linton for increased GERD sxs. If persist, encouraged to followup again with Dr. Linton. Assessment & Plan (08/13/2019 8:58 AM FRENCH FOLDER): Stable with PPI Assessment & Plan (04/29/2019 [...] exertion) Assessment & Plan (06/22/2022 10:30 AM FRENCH FOLDER): Patient is not currently using inhalers. She [...] CPAP Assessment & Plan (08/02/2024 11:49 AM FRENCH FOLDER): Due to the patient stating the pressure [...] readjusted. She denied need for supplies. DME [facility] Assessment & Plan (05/07/2024 8:55 PM FRENCH FOLDER): Continue with CPAP. Assessment & Plan (04/21/2024 8:49 PM CDT): Continue per Dr. Dunn. Has all her needed supplies for CPAP which she is using every night. Continue with Requip 0.5 mg HS for restless leg Assessment & Plan (01/22/2024 8:08 PM CDT): Continue CPAP per Dr. Dunn Assessment & Plan (09/06/2023 9:40 AM FRENCH FOLDER): Continue CPAP Assessment & Plan (06/21/2023 10:14 AM FRENCH FOLDER): Patient continue to wear her CPAP at [...] CPAP Assessment & Plan (06/22/2022 10:31 AM FRENCH FOLDER): Will continue CPAP therapy at an auto titrating range of 7-20 cm water pressure. Denied need for supplies. DME [facility] Assessment & Plan (05/02/2022 9:15 [...] pressure. Patient denied need for supplies. DME [employer] [facility]. Patient is benefitting CPAP Assessment & Plan (09/11/2021 11:22 PM FRENCH FOLDER): Continue CPAP. Patient has all needed supplies. Assessment & Plan (07/13/2021 11:27 AM FRENCH FOLDER): Due to the patient stating she does not have enough pressure in her machine, I have increased the pressure to 13 cm water pressure. The patient denied need for for supplies. DME company [facility]. Have also ordered a new smart card set at 13 cm water pressure. Benefitting from CPAP therapy Assessment & Plan (05/29/2021 8:14 PM FRENCH FOLDER): Continue CPAP. Assessment & Plan (02/17/2021 11:09 AM CDT): The patient continues to be compliant with her CPAP at 8 cm water pressure. She has developed worsening daytime hypersomnia. She also has morning headaches and dry mouth. I have recommended proceeding with a CPAP titration study starting at 8 cm water pressure. Her DME is [facility]. Assessment & Plan (12/24/2020 9:04 AM CDT): Continue CPAP. Would like to see Pulm/sleep at [facility] as difficulty getting in consistently at [facility] and most of her care is now [facility] Assessment & Plan (02/18/2020 9:44 PM CDT): Continue CPAP Assessment & Plan (08/13/2019 8:46 AM FRENCH FOLDER): Using the CPAP. Has equipment as needed. [...] Plan (10/22/2024 1:04 PM CDT): Continue per [facility]. Continue Plaquenil methotrexate Orencia folic acid Mobic gabapentin. Assessment & Plan (08/23/2024 12:54 PM FRENCH FOLDER): Moderate cdai with report of increasing pain, [...] needed. Assessment & Plan (07/30/2024 11:22 AM FRENCH FOLDER): Moderate cdai with report of increased morning [...] with labs near her home ([facility] in [place]), but the following month will need to plan for an in person visit. She expressed understanding and agreement with this plan. Continue methotrexate 20 mg weekly, folic acid 2 mg daily, and hydroxychloroquine 200 mg BID. Labs today as below. Assessment & Plan (05/07/2024 8:55 PM FRENCH FOLDER): Managed by [facility]. Currently on Plaquenil and methotrexate and Orencia folic acid Mobic and gabapentin. Stressed she needs to be in contact with her comb setter on when and which medicines to stop for the surgery. Assessment & Plan (04/21/2024 8:49 PM CDT): Continue per [facility]. They currently manage her [...] Plan (01/22/2024 8:17 PM CDT): Continue per [facility] as they manage her condition. Assessment & Plan (11/24/2023 9:58 AM CDT): Low cdai without inflammatory sounding pain. Will continue methotrexate 20 mg weekly, folic acid 2 mg daily, hydroxychloroquine 200 mg BID, and Orencia and monitor. Labs today as below. Follow up in 3 months or sooner as needed. Assessment & Plan (09/06/2023 9:42 AM FRENCH FOLDER): Rheumatoid arthritis is managed by [facility]. Currently on Plaquenil methotrexate Orencia and folic acid Assessment & Plan (09/01/2023 3:39 PM FRENCH FOLDER): Overall stable without notable synovitis and no inflammatory sounding pain. Will continue methotrexate 20 mg weekly, folic acid 2 mg daily, hydroxychloroquine 200 mg BID, and Orencia and monitor. Labs today as below. Follow up in 3 months or sooner as needed. Assessment & Plan (08/03/2023 8:28 AM FRENCH FOLDER): Continue with rheumatology. Assessment & Plan (06/30/2023 12:43 PM FRENCH FOLDER): Overall stable without notable synovitis and no inflammatory sounding pain. Will continue methotrexate 20 mg weekly, folic acid 2 mg daily, hydroxychloroquine 200 mg BID, and Orencia and monitor. Labs today as below. Assessment & Plan (06/02/2023 4:49 PM FRENCH FOLDER): Continue per Rheumatology Assessment & Plan (04/06/2023 7:35 PM CDT): Continue per Rheumatology. She has been in discussion with them on what medications to stop prior to her knee surgery. She states she was told to take all of her medicines accept the Orencia. Assessment & Plan (01/20/2023 8:12 PM CDT): Continue per Rheumatology [facility] Assessment & Plan (01/13/2023 3:42 [...] Plan (09/12/2022 6:06 PM CDT): Continue with [facility] Assessment & Plan (07/15/2022 1:41 PM FRENCH FOLDER): Low cdai. Significantly improved after IM triamcinolone [...] needed. Assessment & Plan (06/03/2022 3:37 PM FRENCH FOLDER): High cdai. Previously felt well controlled with current regimen. Due to burden of disease will give patient a triamcinolone injection. Patient made aware of SE of steroids including but not limited to HTN, increased blood glucose, cataracts, glaucoma, AVN, and osteoporosis with usp use. Should she flare again shortly after [...] (01/23/2022 4:57 PM CDT): Continue management per [facility] Assessment & Plan (12/07/2021 9:02 AM CDT): Low cdai. Denies inflammatory sounding joint pain. Continue methotrexate 25 mg weekly, folic acid to 2 mg daily, Rinvoq 15 mg daily, hydroxychloroquine 200 mg BID, and cyclobenzaprine 5 mg qhs and monitor. Labs today as below. Plan for follow up in 3 months or sooner as needed. Assessment & Plan (09/11/2021 11:14 PM FRENCH FOLDER): Continue per [facility] Assessment & Plan (09/03/2021 11:25 AM FRENCH FOLDER): cdai = 12. Pt suspects increased joint [...] needed. Assessment & Plan (06/04/2021 10:25 AM FRENCH FOLDER): Low cdai. Denies inflammatory sounding pain at present. Will plan to continue methotrexate 25 mg weekly, folic acid to 2 mg daily, Rinvoq 15 mg daily, hydroxychloroquine 200 mg BID, and cyclobenzaprine 5 mg qhs and monitor. Labs today as below. Plan for follow up in 3 months or sooner as needed. Assessment & Plan (05/31/2021 9:15 PM FRENCH FOLDER): Continue per Rheumatology Assessment & Plan (05/29/2021 8:13 PM FRENCH FOLDER): Continue per Rheumatology. Currently on Plaquenil methotrexate and folic acid. Assessment & Plan (05/24/2021 10:38 AM FRENCH FOLDER): Continue per Rheumatology Assessment & Plan (03/05/2021 [...] needed. Assessment & Plan (09/03/2020 12:22 PM FRENCH FOLDER): Low cdai. Continues to feel improved with [...] needed. Assessment & Plan (08/31/2020 9:34 AM FRENCH FOLDER): Continue per [facility] Assessment & Plan (07/09/2020 12:22 PM FRENCH FOLDER): 64yoF with a h/o seropositive RA diagnosed [...] time. Assessment & Plan (06/04/2020 11:14 AM FRENCH FOLDER): 64yoF with a h/o seropositive RA diagnosed [...] needed. Assessment & Plan (05/14/2020 9:33 PM FRENCH FOLDER): Refer to new Instructional Technology Coach as Dr. Soto has . Assessment & Plan (02/18/2020 9:46 PM CDT): Continue per Rheum Assessment & Plan (08/13/2019 8:59 AM FRENCH FOLDER): Continue per Dr. Soto Assessment & Plan [...] recommendations from the bone metabolism group at [facility] Dr. Martinez. Appointment is scheduled in November. Has been on Reclast and Forteo. She also continues with vitamin-D Assessment & Plan (01/22/2024 8:08 PM CDT): Patient with osteoporosis. Has not been responding to Reclast. Forteo was tried by [facility] and she could not [...] of her osteoporosis, recommended evaluation by the [facility], unfortunately their first available appt was in November 2024. Recommended today that she check with [facility] Osteoporosis center (at [facility]) to see how far out they are scheduling new patients, though she does not like this option due to distance from her house. Assessment & Plan (09/06/2023 9:40 AM FRENCH FOLDER): Managed by [facility]. Per patient they are making a referral to bone metabolism at [facility] she has not seen significant improvement with the Forteo or the Reclast. Assessment & Plan (09/01/2023 3:43 PM FRENCH FOLDER): DEXA: Lspine BMD 0.809 Tscore -2.2, L [...] of her osteoporosis, recommend evaluation by the [facility], provided contact info for Dr. Castillo. Pt in agreement with plan. Assessment & Plan (06/30/2023 12:49 PM FRENCH FOLDER): DEXA: Lspine BMD 0.809 Tscore -2.2, L [...] PM CDT): Continue to monitor. Managed by [facility]. Patient is on Reclast calcium vitamin-D [...] exercise Assessment & Plan (07/15/2022 1:42 PM FRENCH FOLDER): 01/27/2021 DEXA: Lspine -1.8, L femoral neck -1.9, L total hip -1.2, R femoral neck -2.3, R total hip -1.0, FRAX major 32% and hip 7%. Received Reclast 07/2021. Continue yearly Reclast, scheduled for 07/22 Assessment & Plan (06/03/2022 3:38 PM FRENCH FOLDER): 01/27/2021 DEXA: Lspine -1.8, L femoral neck [...] Plan (01/23/2022 5:02 PM CDT): Managed by [facility] currently on Reclast calcium and vitamin-D Assessment & Plan (12/07/2021 9:04 AM CDT): 01/27/2021 DEXA: Lspine -1.8, L femoral neck -1.9, L total hip -1.2, R femoral neck -2.3, R total hip -1.0, FRAX major 32% and hip 7%. Received Reclast 07/2021. Continue yearly Reclast. Assessment & Plan (09/03/2021 11:26 AM FRENCH FOLDER): 01/27/2021 DEXA: Lspine -1.8, L femoral neck -1.9, L total hip -1.2, R femoral neck -2.3, R total hip -1.0, FRAX major 32% and hip 7%. Received Reclast 07/2021. Continue yearly reclast and daily vitamin D-calcium supplement. Assessment & Plan (06/04/2021 10:27 AM FRENCH FOLDER): 01/27/2021 DEXA: Lspine -1.8, L femoral neck [...] order provided today, she will schedule at [facility] Assessment & Plan (12/24/2020 9:06 AM CDT): Continue Reclast thru Rheum Continue calcium, vitD and exercise Assessment & Plan (12/03/2020 10:45 AM CDT): Vitamin D level was 68. Received Reclast 07/09/2020. Last DEXA per available records was 01/31/2019, due this summer - order provided today, she will schedule at [facility] Assessment & Plan (09/03/2020 12:23 PM FRENCH FOLDER): Vitamin D level was 68. Received Reclast 07/09/2020. Last DEXA per available records was 01/31/2019, due this summer. Assessment & Plan (07/09/2020 12:23 PM FRENCH FOLDER): Overdue for Reclast, last infusion was 03/28/2019, will receive infusion today. Vitamin D level was 68 Last DEXA per available records was 01/31/2019 Assessment & Plan (06/04/2020 11:15 AM FRENCH FOLDER): Overdue for Reclast, last infusion was 03/28/2019, will check benefits. Recheck vitamin D level now. Last DEXA per available records was 01/31/2019 Assessment & Plan (02/18/2020 9:46 PM CDT): Calcium, vit D and exercise. Continue to monitor DXA Assessment & Plan (08/13/2019 8:58 AM FRENCH FOLDER): Continue with Calcium, Vit D and Exercise. Recheck DXA iin Fall 2019 with mammogram Resolved Problems Problem Noted Date Diagnosed Date Resolved Date Encounter for pre-operative examination 05/07/2024 10/09/2024 Assessment & Plan (05/07/2024 8:57 PM FRENCH FOLDER): I have examined this patient and ordered [...] Krishnamurthy. 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 Daniels Stressed importance of very close follow-up BMI 37.0-37.9, adult 09/06/2023 024 Assessment & Plan (10/13/2023 7:38 AM CDT): Discussed the patient's BMI. The BMI is above average. BMI management plan is completed. BMI Follow-up includes: nutrition counseling, exercise counseling and education provided. Assessment & Plan (09/06/2023 9:42 AM FRENCH FOLDER): Discussed the patient's BMI. The BMI is above average. BMI management plan is completed. BMI Follow-up includes: nutrition counseling, exercise counseling and education provided. Hyperglycemia 09/06/2023 09/06/2023 Positive depression screening 09/06/2023 09/06/2023 Annual physical exam 09/06/2023 024 Assessment & Plan (09/06/2023 9:43 AM FRENCH FOLDER): Encouraged healthy lifestyle, good nutrition and exercise. Encouraged Calcium and Vitamin D and weight bearing exercise for bone health. Reviewed immunizations Reviewed age appropirate screenings. Orthopedic aftercare 08/09/2023 025 Right knee pain 08/09/2023 09/06/2023 Sinus congestion 08/07/2023 09/06/2023 Assessment & Plan (08/07/2023 7:54 PM FRENCH FOLDER): Persistent sinusitis symptoms along with cough. Will start doxy b.i.d.. Start antihistamine (Claritin OR Zyrtec), Mucinex 12hour and Steroid nasal spray (Flonase). Push fluids. Rest. Supportive care. If sxs worsen or don\'t improve, pt is to followup in the office. BMI 35.0-35.9,adult 08/03/2023 09/06/19 24 Assessment & Plan (08/07/2023 7:51 PM FRENCH FOLDER): Discussed the patient's BMI. The BMI is above average. BMI management plan is completed. BMI Follow-up includes: nutrition counseling, exercise counseling and education provided. Assessment & Plan (08/03/2023 8:29 AM FRENCH FOLDER): Discussed the patient's BMI. The BMI is [...] 01/22/2024 Assessment & Plan (06/02/2023 4:57 PM FRENCH FOLDER): Later in the day received critical lab call for a CO2 value at 42. My staff contacted the patient and she was instructed to go to the ER for further evaluation to determine underlying cause. She states throughout the day she has noticed a little bit more shortness of breath. She plans to have her brother drive her to [facility]. Charge nurse was notified of the [...] surgery. Will defer cardiac clearance to her document control associate. Her chronic medical conditions are stable. [facility] as instructed her to hold the [...] Dr. Ge Sexton on May 04 at [facility]. Need for vaccination for Strep [...] symptoms worsen or do not respond to [id number] allergy medicines within the next week she may call and will consider antibiotic. Left knee pain 09/13/2022 09/06/2023 Right knee pain 09/13/2022 10/09/2024 BMI 39.0-39.9,adult 08/23/2022 11/09/19 Assessment & Plan (10/25/2022 3:32 PM CDT): Discussed the patient's BMI. The BMI is above average. BMI management plan is completed. BMI Follow-up includes: nutrition counseling, exercise counseling and education provided. Assessment & Plan (08/23/2022 2:19 PM FRENCH FOLDER): Discussed the patient's BMI. The BMI is [...] plans Assessment & Plan (07/18/2022 10:20 AM FRENCH FOLDER): CT revealed pelvic lipomatosis that is compressing [...] 12/20/2022 Assessment & Plan (07/18/2022 10:21 AM FRENCH FOLDER): CT revealed pelvic lipomatosis that is compressing [...] plan, Assessment & Plan (07/08/2022 12:33 PM FRENCH FOLDER): Patient has had dysuria. She was started [...] STAT abd/pelvis with and without contrast at [facility]. Check labs STAT. Acute right flank pain 07/08/202204/06 Assessment & Plan (07/18/2022 10:21 AM FRENCH FOLDER): CT revealed pelvic lipomatosis that is compressing [...] plan, Assessment & Plan (07/08/2022 5:58 PM FRENCH FOLDER): Images from the original note were not [...] STAT abd/pelvis with and without contrast at [facility]. Check labs STAT. STAT CT Abd/pelvis without [...] 09/06/2023 Assessment & Plan (07/08/2022 12:33 PM FRENCH FOLDER): Patient has had dysuria. She was started [...] STAT. Assessment & Plan (07/06/2022 8:50 AM FRENCH FOLDER): Pt presents with dysuria. Urine dip completed. [...] 35.00-39.99. Assessment & Plan (07/18/2022 10:23 AM FRENCH FOLDER): Discussed the patient's BMI. The BMI is above average. BMI management plan is completed. BMI Follow-up includes: nutrition counseling, exercise counseling and education provided. Assessment & Plan (07/08/2022 12:30 PM FRENCH FOLDER): Discussed the patient's BMI. The BMI is [...] She has received multiple injections from her comb setter regarding her knee but yesterday when she [...] 01/23/2022 Assessment & Plan (09/11/2021 11:28 PM FRENCH FOLDER): Patient has never had a full skin exam. She has quite a few lesions scattered and would benefit from a full exam. Will make referral Annual physical exam 09/11/2021 022 Assessment & Plan (09/11/2021 11:28 PM FRENCH FOLDER): Encouraged healthy lifestyle, good nutrition and exercise. Encouraged Calcium and Vitamin D and weight bearing exercise for bone health. Reviewed immunizations Reviewed age appropirate screenings. Cough 08/13/2021 01/23/2022 Assessment & Plan (08/13/2021 3:43 PM FRENCH FOLDER): Patient to presume positive COVID/FLU until results are available and plan to self isolate for up to 10 days from the onset of sxs. Check COVID/FLU test thru [facility] collection site in [place]. Let pt know the newest CDC recommendations [...] future. Assessment & Plan (07/13/2021 11:28 AM FRENCH FOLDER): I have ordered the patient Claritin 10 [...] provided. Assessment & Plan (09/11/2021 11:27 PM FRENCH FOLDER): Obesity is unchanged. Discussed the patient's BMI. The BMI is above average. BMI management plan is completed. BMI Follow-up includes: nutrition counseling, exercise counseling and education provided. Assessment & Plan (05/29/2021 8:24 PM FRENCH FOLDER): Obesity is unchanged. Discussed the patient's BMI. The BMI is above average. BMI management plan is completed. BMI Follow-up includes: nutrition counseling, exercise counseling and education provided. Assessment & Plan (05/12/2021 1:26 PM FRENCH FOLDER): Obesity is unchanged. Discussed the patient's BMI. The BMI is above average. BMI management plan is completed. BMI Follow-up includes: nutrition counseling, exercise counseling and education provided. BMI 37.0-37.9, adult 05/12/2021 022 Assessment & Plan (09/11/2021 11:27 PM FRENCH FOLDER): Obesity is unchanged. Discussed the patient's BMI. The BMI is above average. BMI management plan is completed. BMI Follow-up includes: nutrition counseling, exercise counseling and education provided. Assessment & Plan (05/29/2021 8:24 PM FRENCH FOLDER): Obesity is unchanged. Discussed the patient's BMI. The BMI is above average. BMI management plan is completed. BMI Follow-up includes: nutrition counseling, exercise counseling and education provided. Assessment & Plan (05/12/2021 1:26 PM FRENCH FOLDER): Obesity is unchanged. Discussed the patient's BMI. The BMI is above average. BMI management plan is completed. BMI Follow-up includes: nutrition counseling, exercise counseling and education provided. Tinea corporis 04/14/2021 01/23/2022 Assessment & Plan (05/31/2021 9:15 PM FRENCH FOLDER): Improving with Lotrisone. Keep the area clean and dry Assessment & Plan (05/29/2021 8:24 PM FRENCH FOLDER): Lotrisone to pharmacy. Encouraged her to keep the area clean and dry use her dryer to dry the skin before applying the cream. She is to call if symptoms worsen or do not resolve. Need for immunization against influenza 04/14/2021 05/31/2021 Assessment & Plan (05/29/2021 8:24 PM FRENCH FOLDER): Fluid updated in the office Medicare annual wellness visit, subsequent 04/13/2021 05/31/2021 Assessment & Plan (05/29/2021 8:23 PM FRENCH FOLDER): Encouraged healthy lifestyle, good nutrition and exercise. [...] 12/30/2020 Assessment & Plan (08/31/2020 9:31 AM FRENCH FOLDER): Error. This should be right calf but PT order sent and corrected so unable to remove. Fatigue 08/31/2020 09/06/2023 Assessment & Plan (04/06/2023 7:43 PM CDT): Probably multifactorial. Check labs and followup to re-evaluate Assessment & Plan (05/02/2022 9:16 PM CDT): Probably multifactorial. Check labs and followup to re-evaluate Assessment & Plan (08/31/2020 9:34 AM FRENCH FOLDER): Probably multifactorial. Check labs and followup to re-evaluate Pain in both lower extremities 08/31/2020 09/06/2023 Assessment & Plan (09/01/2023 3:41 PM FRENCH FOLDER): Cramping lower leg pain has resolved with [...] 021 Assessment & Plan (08/31/2020 9:33 AM FRENCH FOLDER): Obesity is unchanged. Discussed the patient's BMI. The BMI is above average. BMI management plan is completed. BMI Follow-up includes: nutrition counseling, exercise counseling and education provided. Pain of right calf 08/26/2020 Assessment & Plan (08/31/2020 9:31 AM FRENCH FOLDER): This is a significant, separately identifiable problem that was evaluated and managed on the same day as the wellness exam Unable to rule out DVT with her calf pain/sxs. Check STAT Venous doppler. Recvd Results and discussed with patient via phone. Negative for DVT. Recommend PT. Prefers [place] Annual physical exam 08/24/2020 021 Assessment & Plan (08/31/2020 9:34 AM FRENCH FOLDER): Encouraged healthy lifestyle, good nutrition and exercise. Encouraged Calcium and Vitamin D and weight bearing exercise for bone health. Reviewed immunizations Reviewed age appropirate screenings. Dizziness 05/07/2020 09/06/2023 Assessment & Plan (05/14/2020 9:35 PM FRENCH FOLDER): Suspect the dizziness is inner ear related. [...] imaging. Assessment & Plan (05/07/2020 1:49 PM FRENCH FOLDER): Declines to report to er now 'I [...] 05/14/2020 Assessment & Plan (05/07/2020 1:49 PM FRENCH FOLDER): Declines to report to er now 'I [...] 12/30/2020 Assessment & Plan (05/07/2020 1:49 PM FRENCH FOLDER): Declines to report to er now 'I [...] provided Assessment & Plan (05/31/2021 9:15 PM FRENCH FOLDER): Mammogram order provided Assessment & Plan (02/18/2020 9:47 PM CDT): Mammogram order provided today Medicare annual wellness visit, subsequent 02/15/2020 02/15/2020 Precordial pain 09/04/2019 09/06/2023 Assessment & Plan (08/07/2023 7:50 PM FRENCH FOLDER): Workup in the hospital. Cardiology states her [...] inhaler. Assessment & Plan (07/13/2021 11:26 AM FRENCH FOLDER): The patient will continue with Dulera 2 [...] 020 Assessment & Plan (08/13/2019 8:59 AM FRENCH FOLDER): Encouraged healthy lifestyle, good nutrition and exercise. Encouraged Calcium and Vitamin D and weight bearing exercise for bone health. Reviewed immunizations Reviewed age appropirate screenings. Obesity, morbid, BMI 40.0-49.9 08/13/2019 09/23/2020 Assessment & Plan (08/26/2020 7:10 AM FRENCH FOLDER): Obesity is unchanged. Discussed the patient's BMI. The BMI is above average. BMI management plan is completed. BMI Follow-up includes: nutrition counseling, exercise counseling and education provided. Assessment & Plan (05/14/2020 9:33 PM FRENCH FOLDER): Obesity is unchanged. Discussed the patient's BMI. [...] provided. Assessment & Plan (08/13/2019 8:58 AM FRENCH FOLDER): Obesity is unchanged. Discussed the patient's BMI. [...] change Assessment & Plan (08/13/2019 9:01 AM FRENCH FOLDER): This is a significant, separately identifiable problem [...] 01/22/2024 Assessment & Plan (09/06/2023 9:42 AM FRENCH FOLDER): Probably multifactorial. Check labs and followup to re-evaluate Assessment & Plan (09/03/2021 11:28 AM FRENCH FOLDER): She notes increased fatigue and lack of [...] re-evaluate Assessment & Plan (08/13/2019 9:08 AM FRENCH FOLDER): Probably multifactorial. Check labs and followup to re-evaluate Check labs prior to next visit BMI 40.0-44.9, adult 08/02/2019 020 Assessment & Plan (08/13/2019 8:57 AM FRENCH FOLDER): Obesity is unchanged. Discussed the patient's BMI. The BMI is above average. BMI management plan is completed. BMI Follow-up includes: nutrition counseling, exercise counseling and education provided. Assessment & Plan (08/02/2019 7:21 AM FRENCH FOLDER): Obesity is unchanged. Discussed the patient's BMI. The BMI is above average. BMI management plan is completed. BMI Follow-up includes: nutrition counseling, exercise counseling and education provided. Morbid obesity 08/02/2019 08/13/2019 Assessment & Plan (08/02/2019 7:20 AM FRENCH FOLDER): Obesity is unchanged. Discussed the patient's BMI. The BMI is above average. BMI management plan is completed. BMI Follow-up includes: nutrition counseling, exercise counseling and education provided. Acute non-recurrent maxillary sinusitis 08/02/2019 08/13/2019 Assessment & Plan (08/02/2019 7:47 AM FRENCH FOLDER): Start antibiotic, antihistamine, Mucinex and Steroid nasal [...] foot. She is being sent directly to [facility] and they were working her [...] 21 Assessment & Plan (05/14/2020 9:33 PM FRENCH FOLDER): Completed Doxy and steroid. No s/s infection. [...] p.r.n. Assessment & Plan (08/13/2019 8:59 AM FRENCH FOLDER): Continue with NSAIDs prn Atheroscler of [place] artery of both legs with intermit claudication 10/31/2018 12/20/2022 Assessment & Plan (09/11/2021 11:23 PM FRENCH FOLDER): Continue per vascular. She is on aspirin and statin Assessment & Plan (12/24/2020 9:03 AM CDT): Sxs stable. On ASA, statin and encouraged daily exercise. Assessment & Plan (02/18/2020 9:43 PM CDT): Continue per cardio. On ASA and statin Assessment & Plan (08/13/2019 8:45 AM FRENCH FOLDER): Continues with Dr. Alonso salmeron Assessment & Plan (11/01/2018 11:00 PM CDT): Pt sxs well controlled. On ASA Coronary artery disease of n ative artery of [place] heart with stable angina pectoris 10/31/2018 12/30/2020 Assessment & Plan (08/13/2019 8:36 AM FRENCH FOLDER): On ASA and Nitrate. Continue per cardio Depression 07/16/2018 09/11/2021 Frontal sinusitis 06/26/2018 12/24/2020 Leukopenia 03/29/2018 12/30/2020 Other chronic pain 08/05/2017 3 Chronic seasonal allergic rh initis due to pollen 04/25/2017 12/30/2020 Assessment & Plan (12/24/2020 9:03 AM CDT): Continue current regimen with singulair and otc Assessment & Plan (02/18/2020 9:44 PM CDT): Continue with otc regimen Assessment & Plan (08/13/2019 8:46 AM FRENCH FOLDER): Continue current regimen Assessment & Plan (11/01/2018 [...] potassium Assessment & Plan (09/11/2021 11:26 PM FRENCH FOLDER): Bp is stable/in acceptable range for any co-morbidities. Encouraged to limit sodium intake and exercise for weight control. Currently stable without medication Assessment & Plan (05/29/2021 8:19 PM FRENCH FOLDER): Bp is stable/in acceptable range for any co-morbidities. Encouraged to limit sodium intake and exercise for weight control. Continue Lasix is helping with the swelling and addition. Blood pressure stable Assessment & Plan (05/24/2021 10:38 AM FRENCH FOLDER): Continue Lasix potassium Assessment & Plan (12/24/2020 9:05 AM CDT): Bp is stable/in acceptable range for any co-morbidities. Encouraged to limit sodium intake and exercise for weight control. Assessment & Plan (08/31/2020 9:32 AM FRENCH FOLDER): Bp is stable/in acceptable range for any co-morbidities. Encouraged to limit sodium intake and exercise for weight control. Stable with laxis currently Assessment & Plan (02/18/2020 9:44 PM CDT): Bp is stable/in acceptable range for any co-morbidities. Encouraged to limit sodium intake and exercise for weight control. Assessment & Plan (08/13/2019 8:57 AM FRENCH FOLDER): Bp is stable/in acceptable range for any [...] difficulty pulling them. Recommend finding some on [employer] that fit her calf that she can zip on and off. Showed them to her on [employer] and where to order them. She states she will try to get them. Assessment & Plan (05/31/2021 9:16 PM FRENCH FOLDER): Improving slowly. May have been due to the Relafen. She is on 60 of Lasix with potassium 10 mEq daily. Continue with current plan. Keep legs elevated. Utilize compressi to improve cleared. on hose. Call if symptoms worsen or do not continue to improve. Assessment & Plan (05/29/2021 8:23 PM FRENCH FOLDER): Persistent lower extremity edema that has improved [...] CMP. Assessment & Plan (05/24/2021 10:39 AM FRENCH FOLDER): Patient that her swelling was improving since discharge for over the last day or so it seems to be increasing. Will increase the Lasix to 40mg Start K 10meq daily Recheck labs in 5 days Assessment & Plan (08/31/2020 9:33 AM FRENCH FOLDER): Continue lasix Palpitations 12/08/2015 12/30/2020 Overview (10/09/2016): Palpitations Other abnormal glucose 11/11/201508/31 Asthma 10/14/2015 12/24/2020 Assessment & Plan (08/13/2019 8:49 AM FRENCH FOLDER): Continue with current regimen and with Pulmonary [...] noted. Assessment & Plan (08/23/2024 10:16 AM FRENCH FOLDER): 02/2021 XR L knee with mild to moderate OA, now s/p B TKA. Following with ortho as planned. Assessment & Plan (07/30/2024 11:23 AM FRENCH FOLDER): 02/2021 XR L knee with mild to [...] March. Assessment & Plan (09/01/2023 3:42 PM FRENCH FOLDER): 02/2021 XR L knee with mild to moderate OA, R knee negative. Had injections with ortho without benefit, now s/p L TKA. Assessment & Plan (06/30/2023 12:46 PM FRENCH FOLDER): 02/2021 XR L knee with mild to [...] g/d. Assessment & Plan (07/15/2022 1:41 PM FRENCH FOLDER): 02/2021 XR L knee with mild to moderate OA, R knee negative. Had injections with ortho with benefit. Unable to afford PT. Can continue Tylenol Arthritis, not to exceed 4 g/d. Assessment & Plan (06/03/2022 9:58 AM FRENCH FOLDER): 02/2021 XR L knee with mild to [...] evaluation. Assessment & Plan (09/03/2021 11:27 AM FRENCH FOLDER): XR L knee with mild to moderate [...] able. Assessment & Plan (06/04/2021 10:27 AM FRENCH FOLDER): XR L knee with mild to moderate [...] above. Assessment & Plan (09/03/2020 12:23 PM FRENCH FOLDER): 10/27/2017 XR L knee: mild tricompartmental OA. Will continue meloxicam as above. Assessment & Plan (07/09/2020 12:24 PM FRENCH FOLDER): 10/27/2017 XR L knee: mild tricompartmental OA. Will continue meloxicam as above. In the future may consider trial of PT. Immunizations Immunization Administration Dates Next Due COVID-19 mRNA ([employer]) 0.3 m L (30 mcg) vaccine (12 [...] 07/04/2024(Deferr ed: Patient Refused),03/30/2022 PPD TEST 05/11/2023 [employer] SARS-CoV-2 Monovalent Vaccination (12+ Yrs) [facility]-READY TO [...] = 0.6 oz pur e alcohol) [facility] Utilities Answer Date Recorded In the [...] you attend chur ch or jew services? 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 Female 8:04 PM FRENCH FOLDER Gender Identity Female 02/15/2020 6:08 PM CDT [...] on file Medical Devices Implanted Type Area State Inspector Device Identifier Shelf Expiration Date Model / Serial / Lot [employer] Simplex P Radiopaque Full Dose Cement Bone Sterile 6191-1-010 - [id number] Implanted:Qty: 2 on 05/04/2023 by Michael Motta MD at [facility] Bone Cement Left: Knee [employer] 05/03/2025 6191-1-010 / [id number] / [id number] [employer] Simplex P Radiopaque Full Dose Cement Bone Sterile 6191-1-010 - [id number] Implanted:Qty: 2 on 05/30/2024 by Michael Motta MD at [facility] Bone Cement Right: Patella [employer] [id number] 05/03/2026 6191-1-010 / / [id number] [employer] Persona 14mm 30+ Mm Knee Tibia Taper Extension Stem [id number] - [id number] - [id number] Implanted:Qty: 1 on 05/04/2023 by Michael Motta MD at [facility] Left: Knee [employer] [id number] 02/15/2033 [id number] / [id number] / [id number] [employer] Persona Cemented Cruciate Retaining Knee Left 7 Narrow Component [id number] - [id number] 1 - [id number] Implanted:Qty: 1 on 05/04/2023 by Michael Motta MD at [facility] Left: Knee [employer] [id number] 10/25/2032 [id number] / [id number] / [id number] [employer] Baseplate Tibial Knee Cemented Left Fixed Stemmed Persona Size D [employer]ivan[employer] [id number] - [id number] 1 - [id number] Implanted:Qty: 1 on 05/04/2023 by Michael Motta MD at [facility] Left: Knee [employer] [id number] 09/11/2032 [id number] / [id number] / [id number] [employer] Persona 11mm Knee Left 6-7 C-D Insert Articular [employer] [id number] - [id number] - [id number] Implanted:Qty: 1 on 05/04/2023 by Michael Motta MD at [facility] Left: Knee [employer] [id number] 12/28/2025 [id number] / [id number] / [id number] [employer] Persona 32mm Knee Component Patellar All Poly Latex Free [id number] - [id number] Implanted:Qty: 1 on 05/04/2023 by Michael Motta MD at [facility] [employer] 12/19/2027 [id number] / / [id number] [employer] Baseplate Tibial Knee Cemented Right Fixed Stemmed Persona Size C Tivanium [id number] - [id number] Implanted:Qty: 1 on 05/30/2024 by Michael Motta MD at [facility] Right: Knee [employer] [id number] 03/22/2033 [id number] / / [id number] [employer] Persona 29mm Knee Component Patellar All Poly Latex Free [id number] - [id number] Implanted:Qty: 1 on 05/30/2024 by Michael Motta MD at [facility] Right: Knee [employer] [id number] 12/18/2028 [id number] / / [id number] [employer] Persona 13mm Cruciate Retain Knee Right 6-7 Cd Insert Articular Latex Free [id number] - [id number] Implanted:Qty: 1 on 05/30/2024 by Michael Motta MD at [facility] Right: Patella [employer] [id number] 05/04/2025 [id number] / / [id number] [employer] Persona Cruciate Retaining Cemented Knee Right 7 Narrow Component [id number] - [id number] Implanted:Qty: 1 on 05/30/2024 by Michael Motta MD at [facility] Right: Knee [employer] [id number] 12/27/2033 [id number] / / [id number] [employer] Persona 14mm 30+ Mm Knee Tibia Taper Extension Stem [id number] - [id number] Implanted:Qty: 1 on 05/30/2024 by Michael Motta MD at [facility] Right: Knee [employer] [id number] 04/11/2034 [id number] / / [id number] Procedures Procedure Name Priority Date/Time Associated Diagnosis [...] Read Routine (OP Routine) 08/29/2024 12:23 PM FRENCH FOLDER COMPREHENSIVE METABOLIC PANEL Routine 08/23/2024 2:11 PM FRENCH FOLDER Encounter for medication monitoring CBC WITH AUTO DIFFERENTIAL Routine 08/23/2024 2:11 PM FRENCH FOLDER Encounter for medication monitoring SCAN - LABS 08/23/2024 DEXA AXIAL SKELETON BONE DENSITY 1 OR MORE SITES Schedule Routine, Read Routine (OP Routine) 04/12/2023 8:14 AM CDT COLONOSCOPY Routine 07/27/2021 HEPATITIS C ANTIBODY Routine 06/04/2020 10:29 AM FRENCH FOLDER Encounter for screening for other viral diseases Chronic fatigue from Last 3 Months or Most Recently Relevant to Health Maintenance Results * POC Influenza A/B, COVID-19 antigen (10/23/2024 1:14 PM CDT) Pathologist [facility] Influenza A Ag, POC Negative Negative [facility] Influenza B Ag, POC Negative Negative [facility] COVID-19 Ag POC Presumptive Negative Presumptive Negative, Invalid [facility] Nasal 10/23/2024 1:14 PM CDT Alee OSMAN POINT OF CARE TEST ORDERAB LES Final Result [facility] [address] [place] [address] * (ABNORMAL) Urine culture (10/10/2024 2:46 PM CDT) Pathologist [facility] SCRIBED Urine Culture, Routine 100,000 Historical Provider LAB MICROBIOLOGY - GENERA L ORDERABLES Edited [...] [facility] Influenza B Ag, POC Negative Negative [facility] COVID-19 Ag POC Presumptive Negative Presumptive Negative, Invalid [facility] 09/25/2024 11:0 2 AM CDT Jessica Collins NP POINT OF CARE TEST ORDERABLES Final Result Performing Organization Address City/State/[facility] Co de Phone Number [facility] [address] [place] [address], [facility] * XR Knee Right 3 Views [...] John Sparrow M.D. RB T: Report ID: [id number] Reading Location: [id number] Procedure Note John Sparrow MD - 09/18/2024 [...] John Sparrow M.D. RB T: Report ID: [id number] Reading Location: [place] [address] Michael Motta MD IMG XR PROCEDURES Final Re sult * (ABNORMAL) CT Abdomen Pelvis W Contrast (08/29/2024 12:23 PM FRENCH FOLDER) Anatomical Region Laterality Modality Body N/A Computed Tomogra phy Historical Provider MD [facility] CT PROCEDURES Edited Result - Final * CBC with auto differential (08/23/2024 2:11 PM FRENCH FOLDER) WBC 4.8 3.8 - 10.8 Thousand/u L [...] [facility] Blood 08/23/2024 2:11 PM FRENCH FOLDER 08/23/2024 2:11 PM FRENCH FOLDER Sangita OSMAN LAB BLOOD ORDERABLES Vy l Result [facility] [address] [place] [address] * (ABNORMAL) Comprehensive metabolic panel (08/23/2024 2:11 PM FRENCH FOLDER) Pathologist [facility] Glucose 188(H) 65 - 99 mg/dL [facility] [...] [facility] Blood 08/23/2024 2:11 PM FRENCH FOLDER 08/23/2024 2:11 PM FRENCH FOLDER Result [facility] Sangita OSMAN LAB BLOOD ORDERABLES Vy l Result [facility] [address] [place] [address] * SCAN - LABS (08/23/2024) Alee OSMAN [...] * Hepatitis C antibody (06/04/2020 10:29 AM FRENCH FOLDER) Hep C Ab NON-REACTI VE NON-REACT ALEXYS [facility] SIGNAL TO CUT-OFF 0.02 <1.00 [facility] Comment: HCV antibody was non-reactive. There is no laboratory evidence of HCV infection. In most cases, no further action is required. However, if recent HCV exposure is suspected, a test for HCV RNA (test code 23779) is suggested. For additional information please refer to http://education.Hexadite/faq/KUH15x0 (This link is being provided for informational/ educational purposes only.) Blood specimen (specimen) 06/04/2020 10:29 AM FRENCH FOLDER 06/04/2020 10:30 AM FRENCH FOLDER Sangita OSMAN LAB MICROBIOLOGY - GENERA L ORDERABLES Final Result [facility] [address] [place] [address] from Last 3 Months or Most Recently Relevant to Health [place] [id number] [facility] MEDICARE ADVANTAGE UHC MEDICARE ADVANTAGE Advance Directives For more information, please contact: [phone] Documents on File Type Date Recorded Patient Prop And Scenery Maker Expl anation ADVANCE DIRECTIVE 05/17/2024 2:13 PM Yonis r of Regulatory Product Manager-Medical * Full Code (Latest Code Status on File) Date Activated Date Inactivated Comments 05/30/2024 12:38 PM 06/05/2024 6:31 PM * Full Code Date Activated Date Inactivated Comments 05/04/2023 2:33 PM 05/07/2023 3:07 AM * Full Code Date Activated Date Inactivated Comments 03/22/2021 4:39 PM 03/25/2021 6:17 PM Care Teams English Language Learner Teacher Relationship Specialty Start Date End Date Alee Elizondo PA [address] [place] [phone] (Work) PCP - General Internal Medicine 07/05/23 Sharan Linton MD Referring Physician Gastroenterology 10/31/18 Martha Starks MD Consulting Physician Cardiology 12/24/20 Shama Hines MD [address] [facility] [address] [place] [address] Consulting Physician Pain Management 01/19/21 Artis Grewal MD [address] [place] [address] Consulting Physician Rheumatology 01/30/21 Amy Mayes NP [address] [facility] [address] [place] [address] Nurse Practitioner Cardiovascular Disease 04/20/24 Shailesh Dunn MD 4600 [facility] [address] [place] [address] Consulting Physician Pulmonary Disease 04/20/24 Sangita Farrar PA [address] [place] [address] Physician Undercollar Baster Rheumatology 05/15/24
--- OUTSIDE RECORDS SUMMARY | 2024-11-05 15:48 | XMS_ITS | Encounter Summary ---
Author Organization [facility] Healthcare Address [address] [place] [address] Care Team Providers Care It Help Desk Technician Name Role Phone Sharan Linton MD Unavailable Martha Starks MD Unavailable [phone] Shama Hines MD Unavailable Artis Grewal MD Unavailable [phone] Alee Elizondo Primary Care Provider [phone] Amy Mayes NP Unavailable [phone] Shailesh Dunn MD Unavailable [phone] Sangita Farrar Unavailable [phone] Encounter Details Date Type Department Care Team (Late st Contact Info) Description 10/04/2024 Results Follow-Up [facility] Medical Group Family Medicine [address] [place] [address] Alee Elizondo PA [address] [facility] [address] [facility] [address] [place] [address] Social History Tobacco Use Types Packs/Day Years Used Date Smoking Tobacco: Never Smokeless Tobacco: Never Comments:Never used Alcohol Use Standard Drinks/Week Comments No 0 (1 standard drink = 0.6 oz pur e alcohol) [facility] Utilities Answer Date Recorded In the past 12 months has [employer], oil, or water netomat threatened to shut off services in your [...] any clubs o r organizations such as druze groups, unions, fraternal or athletic groups, or [...] any time in the past 12 m [place], were you homeless or living in a [...] on file Legal Sex Female 8:04 PM TREAD BUILDER Gender Identity Female 02/15/2020 6:08 PM CDT [...] documented as of this encounter Care Teams It Help Desk Technician Relationship Specialty Start Date End Date Alee Elizondo PA [address] [facility] [address] [place] [address] PCP - General Internal Medicine 07/05/23 Sharan Linton MD Referring Physician Gastroenterology 10/31/18 Martha Starks MD Consulting Physician Cardiology 12/24/20 Shama Hines MD [address] [facility] [address] [place] [address] Consulting Physician Pain Management 01/19/21 Atris Grewal MD [address] [place] [address] Consulting Physician Rheumatology 01/30/21 Amy Mayes NP [address] [facility] [address] [place] [address] Nurse Practitioner Cardiovascular Disease 04/20/24 Shailesh Dunn MD [address] [address] Consulting Physician Pulmonary Disease 04/20/24 Sangita Farrar PA [address] [place] [address] Physician Associate Professor Of Counseling Rheumatology 05/15/24 documented as of this encounter
--- OUTSIDE RECORDS SUMMARY | 2024-11-05 15:49 | XMS_ITS | Encounter Summary ---
Author Organization [facility] Healthcare Address [address] [place] [address] Care Team Providers Care Tape Sewer Name Role Phone Sharan Linton MD Unavailable [phone] Martha Starks MD Unavailable [phone] Shama Hines MD Unavailable Artis Grewal MD Unavailable [phone] Alee Elizondo Primary Care Provider [phone] Amy Mayes NP Unavailable [phone] Shailesh Dunn MD Unavailable [phone] Sangita Farrar Unavailable [phone] Encounter Details Date Type Department Care Team (Late st Contact Info) Description 12/08/2023 Orders Only [facility] Information Management [address] [place] [address] Scanning, Provider Social History Tobacco Use Types [...] you attend chur ch or hoahaoism services? 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 PM GAME MASTER Gender Identity Female 02/15/2020 6:08 PM CDT [...] documented as of this encounter Care Teams Tape Sewer Relationship Specialty Start Date End Date Alee Elizondo PA [address] [facility] [address] [place] [address] PCP - General Internal Medicine 07/05/23 Sharan Linton MD Referring Physician Gastroenterology 10/31/18 Martha tSarks MD Consulting Physician Cardiology 12/24/20 Shama Hines MD [address] [facility] [address] Consulting Physician Pain Management 01/19/21 Artis Grewal MD [address] [place] [address] Consulting Physician Rheumatology 01/30/21 Amy Mayes NP [address] [address] Nurse Practitioner Cardiovascular Disease 04/20/24 Shailesh Dnun MD 46[address] [facility] [address] [address] Consulting Physician Pulmonary Disease 04/20/24 Sangita Farrar PA [address] [place] [address] Physician Tax Clerk Rheumatology 05/15/24 documented as of this encounter
--- OUTSIDE RECORDS SUMMARY | 2024-11-05 15:49 | XMS_ITS | Encounter Summary ---
Author Organization [facility] Healthcare Address [address] [place] [address] Care Team Providers Care Product Managent Intern Name Role Phone Sharan Linton MD Unavailable [phone] Martha Starks MD Unavailable [phone] Shama Hines MD Unavailable Artis Grewal MD Unavailable [phone] Alee Elizondo Primary Care Provider [phone] Amy Mayes NP Unavailable [phone] Shailesh Dunn MD Unavailable [phone] Sangita Farrar Unavailable [phone] Encounter Details Date Type Department Care Team (Late st Contact Info) Description 03/02/2024 Telephone [facility] Medical Group Family Medicine [address] [place] [address] Alee Elizondo PA [address] [place] [address] [place] [address] Social History Tobacco Use Types Packs/Day Years Used Date Smoking Tobacco: Never Smokeless Tobacco: Never Comments:Never used Alcohol Use Standard Drinks/Week Comments No 0 (1 standard drink = 0.6 oz pur e alcohol) [facility] Utilities Answer Date Recorded In the past 12 months has [employer], gas, oil, or water company threatened to [...] often do you attend chur ch or samaritan services? More than 4 times per year 05/27/2023 Do you belong to any clubs o r organizations such as methodist groups, unions, fraternal or athletic groups, or [...] on file Legal Sex Female 8:04 PM CELL LINER Gender Identity Female 02/15/2020 6:08 PM CDT [...] documented as of this encounter Care Teams Product Managent Intern Relationship Specialty Start Date End Date Alee Elizondo PA [address] [place] [address] PCP - General Internal Medicine 07/05/23 Sharan Linton MD Referring Physician Gastroenterology 10/31/18 Martha Starks MD Consulting Physician Cardiology 12/24/20 Shama Hines MD 47[address] [facility], [facility] [address] [place] [address] Consulting Physician Pain Management 01/19/21 Artis Grewal MD [address] [place] [address] Consulting Physician Rheumatology 01/30/21 Amy Mayes NP [address] [address] Nurse Practitioner Cardiovascular Disease 04/20/24 Shailesh Dunn MD [address] [facility] [address] [address] Consulting Physician Pulmonary Disease 04/20/24 Sangita Farrar PA [address] [place] [address] Physician Professor Of Psychiatry Rheumatology 05/15/24 documented as of this encounter
--- OUTSIDE RECORDS SUMMARY | 2024-11-05 15:49 | XMS_ITS | Encounter Summary ---
Author Organization [facility] Facility Care Team Providers Care Community Living Coach Name Role Phone Alee Elizondo Primary Care Provider + [phone] Sharan Linton MD Unavailable [phone] Taisha Gomez MD Unavailable [phone] Parag Soto MD Unavailable [phone] RaziaMartha singh MD Unavailable [phone] Puneet Uribe MD Unavailable [phone] Shama Hines MD Unavailable Artis Grewal MD Unavailable [phone] Harrison Pena RN Unavailable [phone] Nafisa Gregg RN Unavailable [phone] Tho Kelsey MD Primary Care Provider [phone] Alee Eilzondo Primary Care Provider + [phone] Amy Mayes NP Unavailable [phone] Shailesh Dunn MD Unavailable [phone] Sangita Farrar Unavailable [phone] Encounter Details Date Type Department Care Team (Latest Contact Info) Description 10/15/2016 Orders Only [facility]INCONV Provider, MD Tania [address] [place] [address] Social History Tobacco Use Types Packs/Day Years Used Date Smoking Tobacco: Never Alcohol Use Standard Drinks/Week Comments No 0 (1 standard drink = 0.6 oz pur e alcohol) Comments Unknown Sex and Gender Information Value Date Recorded Sex Assigned at Not on file Legal Sex Female 8:04 PM BLENDER / COOK Gender Identity Female 02/15/2020 6:08 PM CDT [...] COVID: Suspected 08/13/2021 08/14/2021 08/14/2021 3:06 AM BLENDER / COOK COVID: Suspected 08/14/2021 08/14/2021 08/15/2021 3:05 AM BLENDER / COOK COVID: Suspected 08/14/2021 08/14/2021 08/15/2021 6:25 AM BLENDER / COOK COVID: Suspected 06/02/2023 06/02/2023 06/02/2023 7:25 PM BLENDER / COOK COVID: Suspected 07/26/2023 07/26/2023 07/26/2023 3:10 PM BLENDER / COOK COVID: Suspected 09/25/2024 09/25/2024 09/25/2024 11:03 AM CDT Influenza, adult 09/25/2024 09/25/2024 10/02/2024 3:05 AM CDT COVID: Suspected 10/23/2024 10/23/2024 10/23/2024 1:15 PM CDT documented as of this encounter Care Teams Community Living Coach Relationship Specialty Start Date End Date Alee Elizondo PA [address] [facility] 500 [place] [address] PCP - General Internal Medicine 02/01/17 06/29/23 Tho Kelsey MD [address] [place] [address] [address] [facility] [address] [place] [address] PCP - General Family Medicine 06/30/23 07/04/23 Alee Elizondo PA [address] [facility] [address] [facility] [address] [place] [address] PCP - General Internal Medicine 07/05/23 Sharan Linton MD 10[address] [facility] 500 [place] [address] Referring Physician Gastroenterology 10/31/18 Taisha Gomez MD 10[address] [facility] 500 [place] [address] Referring Physician Pulmonary Disease 10/31/18 12/23/20 Parag Soto MD [address] [facility] 500 [place] [address] Referring Physician Rheumatology 10/31/18 12/23/20 Martha Starks MD [address] [facility] 500 [place] [address] Consulting Physician Cardiology 12/24/20 Puneet Uribe MD [address] [facility] [address] [place] [address] Consulting Physician Rheumatology 12/24/20 01/29/21 Shama Hines MD 4700 [facility], [facility] 230 [place] [address] Consulting Physician Pain Management 01/19/21 Artis Grewal MD [address] [place] [address] Consulting Physician Rheumatology 01/30/21 Harrison Pena RN [address] [place] [address] Services Program Manager 05/30/23 09/04/23 Nafisa Gregg, JULIUS [address] [place] [address] [address] [place] [address] Services Program Manager 06/06/23 06/12/23 Amy Mayes NP [address] [address] Nurse Practitioner Cardiovascular Disease 04/20/24 Shailesh Dunn MD [address] [address] Consulting Physician Pulmonary Disease 04/20/24 Sangita Farrar PA [address] [place] [address] Physician Motorcoach Driver Rheumatology 05/15/24 documented as of this encounter
--- OUTSIDE RECORDS SUMMARY | 2024-11-05 15:49 | XMS_ITS | Encounter Summary ---
Author Organization [facility] Facility Care Team Providers Care Referral Agent Name Role Phone Alee Elizondo Primary Care Provider + [phone] Sharan Linton MD Unavailable [phone] Taisha Gomez MD Unavailable [phone] Parag Soto MD Unavailable [phone] RaziaMartha singh MD Unavailable [phone] Puneet Uribe MD Unavailable +[phone] Shama Hines MD Unavailable Artis Grewal MD Unavailable [phone] Harrison Pena RN Unavailable +[phone] Nafisa Gregg RN Unavailable +[phone] Tho Kelsey MD Primary Care Provider [phone] Alee Elizondo Primary Care Provider + [phone] Amy Mayes NP Unavailable +[phone] Shailesh Dunn MD Unavailable [phone] Sangita Farrar Unavailable +[phone] Encounter Details Date Type Department Care Team (Latest Contact Info) Description 08/10/2017 Orders Only [facility] CLINCONV Provider, MD Tania [address] [place] [address] Social History Tobacco Use Types Packs/Day Years Used Date Smoking Tobacco: Never Smokeless Tobacco: Never Alcohol Use Standard Drinks/Week Comments No 0 (1 standard drink = 0.6 oz pur e alcohol) Comments Unknown Sex and Gender Information Value Date Recorded Sex Assigned at Not on file Legal Sex Female 8:04 PM ACCOUNT EXECUTIVE AGRIBUSINESS Gender Identity Female 02/15/2020 6:08 PM CDT Sexual Orientation Not on file documented as of this encounter Plan of Treatment Not on file documented as of this encounter Procedures Procedure Name Priority Date/Time Associated Diagnosis Comments CARDIOLOGY REPORT 08/10/2017 12: 00 AM ACCOUNT EXECUTIVE AGRIBUSINESS documented in this encounter Results * CARDIOLOGY REPORT (08/10/2017 12:00 AM ACCOUNT EXECUTIVE AGRIBUSINESS) Anatomical Region Laterality Modality Other Narrative 08/10/2017 12:00 AM ACCOUNT EXECUTIVE AGRIBUSINESS Ordered by an unspecified provider. Historical Provider [facility] LEANDRA LANDRUM Final Result documented in this encounter Visit Diagnoses Not on filedocumented in this encounter Additional Health Concerns Infection Onset Date Last Indicated Resolved Time COVID: Suspected 08/13/2021 08/14/2021 08/14/2021 3:06 AM ACCOUNT EXECUTIVE AGRIBUSINESS COVID: Suspected 08/14/2021 08/14/2021 08/15/2021 3:05 AM ACCOUNT EXECUTIVE AGRIBUSINESS COVID: Suspected 08/14/2021 08/14/2021 08/15/2021 6:25 AM ACCOUNT EXECUTIVE AGRIBUSINESS COVID: Suspected 06/02/2023 06/02/2023 06/02/2023 7:25 PM ACCOUNT EXECUTIVE AGRIBUSINESS COVID: Suspected 07/26/2023 07/26/2023 07/26/2023 3:10 PM ACCOUNT EXECUTIVE AGRIBUSINESS COVID: Suspected 09/25/2024 09/25/2024 09/25/2024 11:03 AM CDT Influenza, adult 09/25/2024 09/25/2024 10/02/2024 3:05 AM CDT COVID: Suspected 10/23/2024 10/23/2024 10/23/2024 1:15 PM CDT documented as of this encounter Care Teams Referral Agent Relationship Specialty Start Date End Date Alee Elizondo PA [address] [place] [address] PCP - General Internal Medicine 02/01/17 06/29/23 Tho Kelsey MD [address] [place] [address] [address] [place] [address] PCP - General Family Medicine 06/30/23 07/04/23 Alee Elizondo PA [address] [place] [address] PCP - General Internal Medicine 07/05/23 Sharan Linton MD [address] [place] [address] Referring Physician Gastroenterology 10/31/18 Taisha Gomez MD [address] [place] [address] Referring Physician Pulmonary Disease 10/31/18 12/23/20 Parag Soto MD [address] [place] [address] Referring Physician Rheumatology 10/31/18 12/23/20 Martha Starks MD [address] [place] [address] Consulting Physician Cardiology 12/24/20 Puneet Uribe MD [address] [facility] [address] [place] [address] Consulting Physician Rheumatology 12/24/20 01/29/21 Shama Hines MD 4700 [facility] [address] Consulting Physician Pain Management 01/19/21 Artis Grewal MD [address] [place] [address] Consulting Physician Rheumatology 01/30/21 Harrison Pena RN [address] [place] [address] Mother Tester 05/30/23 09/04/23 Nafisa Gregg RN [address] [place] [address] Mother Tester 06/06/23 06/12/23 Amy Mayes NP [address] [address] Nurse Practitioner Cardiovascular Disease 04/20/24 Shailesh Dunn MD [address] [address] Consulting Physician Pulmonary Disease 04/20/24 Sangita Farrar PA [address] [place] [address] Physician Rail Gang Supervisor Rheumatology 05/15/24 documented as of this encounter
[2024-11-05 17:20] LABS: Add Urine Microscopic? NO; Appearance Urine Clear (Clear); Bilirubin Urine Negative (Negative); Blood Urine Negative (Negative); Color Urine Yellow (Yellow); Glucose Urine UA Negative (Negative); Ketones Urine Negative (Negative); Leukocyte Esterase Ur Negative LEU/UL (Negative); Nitrate Urine Negative (Negative); Protein Urine Negative (Negative); Specific Grav Ur 1.008 (1.001-1.035); Urobilinogen Urine 0.2 mg/dL (<2.0); pH Urine 5.5 (5.0-9.0)
--- OUTSIDE RECORDS SUMMARY | 2024-11-05 18:31 | XMS_ITS | Encounter Summary ---
Author Organization [facility] Healthcare Address [address] [place] [address] Care Team Providers Care Certified Breastfeeding Educator Name Role Phone Sharan Linton MD Unavailable [phone] Martha Starks MD Unavailable [phone] Shama Hines MD Unavailable Artis Grewal MD Unavailable [phone] Alee Elizondo Primary Care Provider [phone] Amy Mayes NP Unavailable +[phone] Shailesh Dunn MD Unavailable [phone] Sangita Farrar Unavailable +[phone] Reason for Visit * Reason Onset Date Comments Medical Question/Miscellaneous 09/25/2024 Encounter Details Date Type Department Care Team (Late st Contact Info) Description 09/25/2024 Results Follow-Up [facility] Medical Group Family Medicine [address] [place] [address] Alee Elizondo PA [address] [place] [address] Social History Tobacco Use Types Packs/Day Years Used Date Smoking Tobacco: Never Smokeless Tobacco: Never Comments:Never used Alcohol Use Standard Drinks/Week Comments No 0 (1 standard drink = 0.6 oz pur e alcohol) [facility] Utilities Answer Date Recorded In [...] often do you attend chur ch or roman catholic services? 1 to 4 times per [...] any time in the past 12 [facility], were you homeless or living in [...] on file Legal Sex Female 8:04 PM RELEASE SPECIALIST Gender Identity Female 02/15/2020 6:08 PM [...] documented as of this encounter Care Teams Certified Breastfeeding Educator Relationship Specialty Start Date End Date Alee Elizondo PA [address] [facility] 500 [place], [place] [id number] PCP - General Internal Medicine 07/05/23 Sharan Linton MD Referring Physician Gastroenterology 10/31/18 Martha Starks MD Consulting Physician Cardiology 12/24/20 Shama Hines MD 47[address] [facility] [address] [place] [address] Consulting Physician Pain Management 01/19/21 Artis Grewal MD [address] [place] [address] Consulting Physician Rheumatology 01/30/21 Amy Mayes NP [address] [facility] [address] [place] [address] Nurse Practitioner Cardiovascular Disease 04/20/24 Shailesh Dunn MD [address] [place] [address] Consulting Physician Pulmonary Disease 04/20/24 Sangita Farrar PA [address] [place] [address] Physician Rivet Passer Rheumatology 05/15/24 documented as of this encounter
--- OUTSIDE RECORDS SUMMARY | 2024-11-05 18:32 | XMS_ITS | Encounter Summary ---
Author Organization [facility] Facility Care Team Providers Care Rfid Manager Name Role Phone Alee Elizondo Primary Care Provider + [phone] Sharan Linton MD Unavailable [phone] Taisha Gomez MD Unavailable [phone] Parag Soto MD Unavailable [phone] [facility] MD Unavailable [phone] Puneet Uribe MD Unavailable +[phone] Shama Hines MD Unavailable Artis Grewal MD Unavailable [phone] Harrison Pena RN Unavailable +[phone] Nafisa Gregg RN Unavailable [phone] Tho Kelsey MD Primary Care Provider [phone] Alee Elizondo Primary Care Provider + [phone] Amy Mayes NP Unavailable [phone] Shailesh Dunn MD Unavailable [phone] Sangita Farrar Unavailable +[phone] Encounter Details Date Type Department Care Team (Latest Contact Info) Description 09/14/2016 Orders Only [facility] CLINCONV Provider, MD Tania [address] [place] [address] Social History Tobacco Use Types Packs/Day Years Used Date Smoking Tobacco: Never Alcohol Use Standard Drinks/Week Comments No 0 (1 standard drink = 0.6 oz pur e alcohol) Comments Unknown Sex and Gender Information Value Date Recorded Sex Assigned at Not on file Legal Sex Female 8:04 PM VOLTAGE TESTER Gender Identity Female 02/15/2020 6:08 PM CDT Sexual Orientation Not on file documented as of this encounter Plan of Treatment Not on file documented as of this encounter Procedures Procedure Name Priority Date/Time Associated Diagnosis Comments PROCEDURE - RESULT 09/09/2016 12 :00 AM VOLTAGE TESTER documented in this encounter Results * PROCEDURE - RESULT (09/09/2016 12:00 AM VOLTAGE TESTER) Narrative 09/09/2016 12:00 AM VOLTAGE TESTER Ordered by an unspecified provider. Historical Provider MD Final Res ult documented in this encounter Visit Diagnoses Not on filedocumented in this encounter Additional Health Concerns Infection Onset Date Last Indicated Resolved Time COVID: Suspected 08/13/2021 08/14/2021 08/14/2021 3:06 AM VOLTAGE TESTER COVID: Suspected 08/14/2021 08/14/2021 08/15/2021 3:05 AM VOLTAGE TESTER COVID: Suspected 08/14/2021 08/14/2021 08/15/2021 6:25 AM VOLTAGE TESTER COVID: Suspected 06/02/2023 06/02/2023 06/02/2023 7:25 PM VOLTAGE TESTER COVID: Suspected 07/26/2023 07/26/2023 07/26/2023 3:10 PM VOLTAGE TESTER COVID: Suspected 09/25/2024 09/25/2024 09/25/2024 11:03 AM CDT Influenza, adult 09/25/2024 09/25/2024 10/02/2024 3:05 AM CDT COVID: Suspected 10/23/2024 10/23/2024 10/23/2024 1:15 PM CDT documented as of this encounter Care Teams Rfid Manager Relationship Specialty Start Date End Date Alee Elizondo PA 10[address] [facility] 500 [place] [address] PCP - General Internal Medicine 02/01/17 06/29/23 Tho Kelesy MD [address] [place] [address] [address] [facility] [address] [place] [address] PCP - General Family Medicine 06/30/23 07/04/23 Alee Elizondo PA [address] [facility] 500 [place] [address] PCP - General Internal Medicine 07/05/23 Sharan Linton MD 1095 [facility] 500 [place] [address] Referring Physician Gastroenterology 10/31/18 Taisha Gomez MD 1095 [facility] 500 [place] [address] Referring Physician Pulmonary Disease 10/31/18 12/23/20 Parag Soto MD 1095 [facility] 500 [place] [address] Referring Physician Rheumatology 10/31/18 12/23/20 Martha Starks MD [address] [facility] 500 [place] [address] Consulting Physician Cardiology 12/24/20 Puneet Uribe MD [address] [facility] [address] [place] [address] Consulting Physician Rheumatology 12/24/20 01/29/21 Shama Hines MD 4700 [facility], [facility] 230 [place] [address] Consulting Physician Pain Management 01/19/21 Artis Grewal MD [address] [place] [address] Consulting Physician Rheumatology 01/30/21 Harrison Pena, JULIUS [address] [place] [address] Marketing Account Manager 05/30/23 09/04/23 Nafisa Gregg, JULIUS [address] [place] [address] [facility] [address] [place] [address] Marketing Account Manager 06/06/23 06/12/23 Amy Mayes NP [address] [facility] 102 [place] [address] Nurse Practitioner Cardiovascular Disease 04/20/24 Shailesh Dunn MD 46[address] [facility] 200 [place] [address] Consulting Physician Pulmonary Disease 04/20/24 Sangita Farrar PA [address] [place] [address] Physician Wheel Grinder Rheumatology 05/15/24 documented as of this encounter
--- OUTSIDE RECORDS SUMMARY | 2024-11-05 18:32 | XMS_ITS | Encounter Summary ---
Author Organization [facility] Healthcare Address [address] [place] [address] Care Team Providers Care Dust Collector Attendant Name Role Phone Sharan Linton MD Unavailable [phone] Martha Starks MD Unavailable [phone] Shama Hines MD Unavailable Artis Grewal MD Unavailable [phone] Alee Elizondo Primary Care Provider [phone] Amy Mayes NP Unavailable [phone] Shailesh Dunn MD Unavailable [phone] Sangita Farrar Unavailable [phone] Reason for Visit * Reason Onset Date Comments Medication Request 10/10/2024 Encounter Details Date Type Department Care Team (Late st Contact Info) Description 10/10/2024 Telephone [facility] Medical Group Family Medicine [address] [place] [address] Alee Elizondo PA [address] [facility] [address] [place] [address] Medication Request Social History Tobacco Use Types Packs/Day Years Used Date Smoking Tobacco: Never Smokeless Tobacco: Never Comments:Never used Alcohol Use Standard Drinks/Week Comments No 0 (1 standard drink = 0.6 oz pur e alcohol) [facility] Utilities Answer Date Recorded In the past 12 months has th e electric, gas, oil, or water [employer] threatened to shut off services in your [...] you attend chur ch or pentecostalism services? 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 Gender Identity Female 02/15/2020 6:08 PM [...] encounter Miscellaneous Notes * Telephone Encounter - Hillister, Yovana, THIRD HELPER - 10/10/2024 9:37 AM CDT Called and [...] documented as of this encounter Care Teams Dust Collector Attendant Relationship Specialty Start Date End Date Alee Elizondo PA [address] [facility] 500 [place] [address] PCP - General Internal Medicine 07/05/23 Sharan Linton MD Referring Physician Gastroenterology 10/31/18 Martha Starks MD Consulting Physician Cardiology 12/24/20 Shama Hines MD 4700 [facility], [address] [place] [address] Consulting Physician Pain Management 01/19/21 Artis Grewal MD [address] [place] [address] Consulting Physician Rheumatology 01/30/21 Amy Mayes NP [address] [address] Nurse Practitioner Cardiovascular Disease 04/20/24 Shailesh Dunn MD 4600 [facility] [address] [address] Consulting Physician Pulmonary Disease 04/20/24 Sangita Farrar PA [address] [place] [address] Physician Indigo Mixer Rheumatology 05/15/24 documented as of this encounter
--- OUTSIDE RECORDS SUMMARY | 2024-11-05 18:32 | XMS_ITS | Encounter Summary ---
Author Organization [facility] Healthcare Address [address] [place] [address] Care Team Providers Care Emergency Service Restorer Name Role Phone Sharan Linton MD Unavailable [phone] Martha Starks MD Unavailable [phone] Shama Hines MD Unavailable Artis Grewal MD Unavailable Alee Elizondo Primary Care Provider [phone] Amy Mayes NP Unavailable [phone] Shailesh Dunn MD Unavailable [phone] Sangita Farrar Unavailable [phone] Encounter Details Date Type Department Care Team (Late st Contact Info) Description 10/04/2024 Results Follow-Up [facility] Medical Group Family Medicine [address] [place] [address] Alee Elizondo PA [address] [address] [place] [address] Social History Tobacco Use Types Packs/Day Years Used Date Smoking Tobacco: Never Smokeless Tobacco: Never Comments:Never used Alcohol Use Standard Drinks/Week Comments No 0 (1 standard drink = 0.6 oz pur e alcohol) [facility] Utilities Answer Date Recorded In the past 12 months has [employer], oil, or water [employer] threatened to shut off services in your [...] often do you attend chur ch or gnosticism services? 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 Gender Identity Female 02/15/2020 6:08 PM [...] documented as of this encounter Care Teams Emergency Service Restorer Relationship Specialty Start Date End Date Alee Elizondo PA [address] [facility] [address] [place] [address] PCP - General Internal Medicine 07/05/23 Sharan Linton MD Referring Physician Gastroenterology 10/31/18 Martha Starks MD Consulting Physician Cardiology 12/24/20 Shama Hines MD 4700 [facility] 230 [place] [address] Consulting Physician Pain Management 01/19/21 Artis Grewal MD [address] [place] [address] Consulting Physician Rheumatology 01/30/21 Amy Mayes NP [address] [facility] [address] [place] [address] Nurse Practitioner Cardiovascular Disease 04/20/24 Shailesh Dunn MD [address] [address] Consulting Physician Pulmonary Disease 04/20/24 Sangita Farrar PA [address] [place] [address] Physician Dough Scaler And Mixer Rheumatology 05/15/24 documented as of this encounter
--- OUTSIDE RECORDS SUMMARY | 2024-11-05 18:32 | XMS_ITS | Encounter Summary ---
Author Organization [facility] Facility Care Team Providers Care Cooperer Name Role Phone Alee Elizondo Primary Care Provider + [phone] Sharan Linton MD Unavailable [phone] Taisha Gomez MD Unavailable [phone] Parag Soto MD Unavailable [phone] [facility] MD Unavailable [phone] Puneet Uribe MD Unavailable +[phone] Shama Hines MD Unavailable Artis Grewal MD Unavailable [phone] Harrison Pena RN Unavailable +[phone] Nafisa Gregg RN Unavailable [phone] Tho Kelsey MD Primary Care Provider [phone] Alee Elizondo Primary Care Provider + [phone] Amy Mayes NP Unavailable [phone] Shailesh Dunn MD Unavailable [phone] Sangita Farrar Unavailable [phone] Encounter Details Date Type Department Care Team (Latest Contact Info) Description 09/29/2015 Orders Only [facility] CLINCONV Provider, MD Tania [address] [place] [address] Social History Tobacco Use Types Packs/Day Years Used Date Smoking Tobacco: Never Assessed Comments Unknown Sex and Gender Information Value Date Recorded Sex Assigned at Not on file Legal Sex Female 8:04 PM SENIOR ADMINISTRATIVE ASSOCIATE Gender Identity Female 02/15/2020 6:08 PM [...] Suspected 08/13/2021 08/14/2021 08/14/2021 3:06 AM SENIOR ADMINISTRATIVE ASSOCIATE COVID: Suspected 08/14/2021 08/14/2021 08/15/2021 3:05 AM SENIOR ADMINISTRATIVE ASSOCIATE COVID: Suspected 08/14/2021 08/14/2021 08/15/2021 6:25 AM SENIOR ADMINISTRATIVE ASSOCIATE COVID: Suspected 06/02/2023 06/02/2023 06/02/2023 7:25 PM SENIOR ADMINISTRATIVE ASSOCIATE COVID: Suspected 07/26/2023 07/26/2023 07/26/2023 3:10 PM SENIOR ADMINISTRATIVE ASSOCIATE COVID: Suspected 09/25/2024 09/25/2024 09/25/2024 11:03 AM CDT Influenza, adult 09/25/2024 09/25/2024 10/02/2024 3:05 AM CDT COVID: Suspected 10/23/2024 10/23/2024 10/23/2024 1:15 PM CDT documented as of this encounter Care Teams Cooperer Relationship Specialty Start Date End Date Alee Elizondo PA [address] [address] PCP - General Internal Medicine 02/01/17 06/29/23 Tho Kelsey MD [address] [place] [address] [address] [facility] [address] [place] [address] PCP - General Family Medicine 06/30/23 07/04/23 Alee Elizondo PA [address] [place] [address] PCP - General Internal Medicine 07/05/23 Sharan Linton MD [address] [facility] 500 [place], [place] [address] Referring Physician Gastroenterology 10/31/18 Taisha Gomez MD [address] [facility] [address] [place], [place] [address] Referring Physician Pulmonary Disease 10/31/18 12/23/20 Parag Soto MD [address] [facility] [address] [place] [address] Referring Physician Rheumatology 10/31/18 12/23/20 Martha Starks MD [address] [place], [place] [address] Consulting Physician Cardiology 12/24/20 Puneet Uribe MD [address] [facility] [address] [place] [address] Consulting Physician Rheumatology 12/24/20 01/29/21 Shama Hines MD 4700 [facility], [facility] 230 [place] [address] Consulting Physician Pain Management 01/19/21 Artis Grewal MD [address] [place] [address] Consulting Physician Rheumatology 01/30/21 Harrison Pena, JULIUS [address] [place] [address] Ice Guard Inspector 05/30/23 09/04/23 Nafisa Gregg, JULIUS [address] [place] [address] [facility] [address] [place] [address] Ice Guard Inspector 06/06/23 06/12/23 Amy Mayes NP [address] [address] Nurse Practitioner Cardiovascular Disease 04/20/24 Shailesh Dunn MD [address] [address] Consulting Physician Pulmonary Disease 04/20/24 Sangita Farrar PA [address] [place] [address] Physician Nuclear Cardiology Technologist Rheumatology 05/15/24 documented as of this encounter
--- OUTSIDE RECORDS SUMMARY | 2024-11-05 18:32 | XMS_ITS | Encounter Summary ---
Author Organization [facility] Healthcare Address [address] [place] [address] Care Team Providers Care Beam Racker Name Role Phone Sharan Linton MD Unavailable [phone] Martha Starks MD Unavailable [phone] Shama Hines MD Unavailable Artis Grewal MD Unavailable [phone] Alee Elizondo Primary Care Provider [phone] Amy Mayes NP Unavailable [phone] Shailesh Dunn MD Unavailable [phone] Sangita Farrar Unavailable [phone] Encounter Details Date Type Department Care Team (Late st Contact Info) Description 09/04/2024 Results Follow-Up [facility] Medical Group Family Medicine [address] [place] [address] Alee Elizondo PA [address] [address] [place] [address] Social History Tobacco Use Types Packs/Day Years Used Date Smoking Tobacco: Never Smokeless Tobacco: Never Comments:Never used Alcohol Use Standard Drinks/Week Comments No 0 (1 standard drink = 0.6 oz pur e alcohol) [facility] Utilities Answer Date Recorded In the past 12 months has [employer], oil, or water [employer] threatened to shut off services in your [...] often do you attend chur ch or taoism services? 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 Gender Identity Female 02/15/2020 6:08 PM [...] as of this encounter Care Teams Beam Racker Relationship Specialty Start Date End Date Alee Elizondo PA [address] [facility] [address] [place] [address] PCP - General Internal Medicine 07/05/23 Sharan Linton MD Referring Physician Gastroenterology 10/31/18 Martha Starks MD Consulting Physician Cardiology 12/24/20 Shama Hines MD 4[address] [facility] [address] [place] [address] Consulting Physician Pain Management 01/19/21 Artis Grewal MD [address] [place] [address] Consulting Physician Rheumatology 01/30/21 Amy Mayes NP [address] [facility] [address] [facility] 102 [place] [address] Nurse Practitioner Cardiovascular Disease 04/20/24 Shailesh Dunn MD [address] [address] Consulting Physician Pulmonary Disease 04/20/24 Sangita Farrar PA [address] [place] [address] Physician Leadite Heater Rheumatology 05/15/24 documented as of this encounter
--- OUTSIDE RECORDS SUMMARY | 2024-11-05 18:32 | XMS_ITS | Clinical Summary ---
Author Organization [facility] [address] Address [address] [place] [address] Care Team Providers Care Medical Territory Manager Name Role Phone Sharan Linton MD Unavailable [phone] Martha Starks MD Unavailable [phone] Shama Hines MD Unavailable Artis Grewal MD Unavailable [phone] Alee Elizondo Primary Care Provider [phone] Amy Mayes NP Unavailable [phone] Shailesh Dunn MD Unavailable [phone] Sangita Farrar Unavailable Allergies Active Allergy Reactions [...] She has had evaluation by Urology at [facility] and has been told [...] prescribed. Assessment & Plan (08/07/2023 7:55 PM HANDICRAFTS TEACHER): Persistent sinusitis symptoms along with cough. Will [...] provided. Assessment & Plan (05/07/2024 8:56 PM HANDICRAFTS TEACHER): Discussed the patient's BMI. The BMI is [...] provided. Assessment & Plan (09/06/2023 9:38 AM HANDICRAFTS TEACHER): Discussed the patient's BMI. The BMI is above average. BMI management plan is completed. BMI Follow-up includes: nutrition counseling, exercise counseling and education provided. Patient has an obesity-related condition (not limited to: hypertension, obstructive sleep apnea, osteoarthritis, hyperlipidemia, diabetes, etc.). Therefore, morbid obesity may be documented for patients with a BMI between 35.00-39.99. Assessment & Plan (08/07/2023 7:51 PM HANDICRAFTS TEACHER): Discussed the patient's BMI. The BMI is above average. BMI management plan is completed. BMI Follow-up includes: nutrition counseling, exercise counseling and education provided. Patient has an obesity-related condition (not limited to: hypertension, obstructive sleep apnea, osteoarthritis, hyperlipidemia, diabetes, etc.). Therefore, morbid obesity may be documented for patients with a BMI between 35.00-39.99. Assessment & Plan (08/03/2023 7:45 AM HANDICRAFTS TEACHER): Discussed the patient's BMI. The BMI is above average. BMI management plan is completed. BMI Follow-up includes: nutrition counseling, exercise counseling and education provided. Primary osteoarthritis of right knee 07/08/2023 Assessment & Plan (05/07/2024 8:56 PM HANDICRAFTS TEACHER): Patient has arthritis in the right knee. Planning a total knee replacement with Dr. Alexus Motta on May 30 Assessment & Plan (08/03/2023 8:28 AM HANDICRAFTS TEACHER): Continue per ortho. She is seeing some improvement but it is difficult to know if the knee is rheumatoid versus osteo versus other etiology. Will await recommendations from JACQUI Raya but definitely encouraged her to become active as soon as possible. Status post total knee replacement using cement, right 05/19/2023 Assessment & Plan (06/02/2023 4:56 PM HANDICRAFTS TEACHER): Status post total knee replacement with Dr. Ge Sexton 04 May. She has just been released from rehab following up for her TCM visit. She appears to have an area of cellulitis at the incision site. She is also complaining of increased pain. Will check CBC CMP and inflammatory markers along with an x-ray. She plans to go to [facility] for the workup. Will follow up [...] provided. Assessment & Plan (06/02/2023 8:27 AM HANDICRAFTS TEACHER): Discussed the patients BMI: The BMI is [...] 12/20/2022 Assessment & Plan (05/07/2024 8:55 PM HANDICRAFTS TEACHER): Patient is on medication for her rheumatoid arthritis managed by [facility] Assessment & Plan (01/22/2024 8:13 PM CDT): Medications from [facility] contribute to her immunosuppressive state. Assessment & Plan (09/06/2023 9:41 AM HANDICRAFTS TEACHER): Medications are managed by [facility] for her rheumatoid arthritis Assessment & Plan (04/06/2023 7:44 PM CDT): Managed by [facility]. Currently on Plaquenil methotrexate Orencia folic [...] She has had evaluation by Urology at [facility] and has been told [...] capacity. Assessment & Plan (09/06/2023 9:41 AM HANDICRAFTS TEACHER): Continue per . She did not tolerate [...] Pate. Assessment & Plan (07/18/2022 10:20 AM HANDICRAFTS TEACHER): CT revealed pelvic lipomatosis that is compressing [...] 02/11/2022 Assessment & Plan (09/06/2023 9:41 AM HANDICRAFTS TEACHER): No change. Dysfunction of both eustachian tubes 02/11/2022 Myalgia, lower leg 01/11/2022 PLMD (periodic limb movement disorder) Assessment & Plan (08/02/2024 11:49 AM HANDICRAFTS TEACHER): Asymptomatic Assessment & Plan (06/22/2022 10:31 AM HANDICRAFTS TEACHER): Will continue Requip 1 mg nightly Assessment [...] bedtime. Assessment & Plan (07/13/2021 11:25 AM HANDICRAFTS TEACHER): Due to the patient stating that she [...] 06/04/2020 Assessment & Plan (08/23/2024 10:16 AM HANDICRAFTS TEACHER): Hepatitis negative 06/2020 Tspot negative 06/2020 Continue routine lab monitoring Maintain routine eye exams throughout the duration of taking hydroxychloroquine Assessment & Plan (07/30/2024 8:24 AM HANDICRAFTS TEACHER): Hepatitis negative 06/2020 Tspot negative 06/2020 Continue [...] hydroxychloroquine Assessment & Plan (09/01/2023 8:34 AM HANDICRAFTS TEACHER): Hepatitis negative 06/2020 Tspot negative 06/2020 Continue routine lab monitoring Maintain routine eye exams throughout the duration of taking hydroxychloroquine Assessment & Plan (06/29/2023 2:19 PM HANDICRAFTS TEACHER): Hepatitis negative 06/2020 Tspot negative 06/2020 Continue [...] hydroxychloroquine Assessment & Plan (07/14/2022 2:58 PM HANDICRAFTS TEACHER): Hepatitis negative 06/2020 Tspot negative 06/2020 Continue routine lab monitoring Maintain routine eye exams throughout the duration of taking hydroxychloroquine Assessment & Plan (06/03/2022 9:58 AM HANDICRAFTS TEACHER): Hepatitis negative 06/2020 Tspot negative 06/2020 Continue [...] hydroxychloroquine Assessment & Plan (09/03/2021 8:29 AM HANDICRAFTS TEACHER): Hepatitis negative 06/2020 Tspot negative 06/2020 Continue routine lab monitoring Maintain routine eye exams throughout the duration of taking hydroxychloroquine Assessment & Plan (06/03/2021 4:17 PM HANDICRAFTS TEACHER): Hepatitis negative 06/2020 Tspot negative 06/2020 Continue [...] hydroxychloroquine Assessment & Plan (09/02/2020 1:16 PM HANDICRAFTS TEACHER): Hepatitis negative 06/2020 Tspot negative 06/2020 Continue routine lab monitoring Maintain routine eye exams throughout the duration of taking hydroxychloroquine Assessment & Plan (07/09/2020 12:23 PM HANDICRAFTS TEACHER): Hepatitis negative 06/2020 Tspot negative 06/2020 Continue [...] 08/13/2019 Assessment & Plan (05/07/2024 8:54 PM HANDICRAFTS TEACHER): Patient with chronic constipation. Has been on [...] linzess Assessment & Plan (08/13/2019 8:57 AM HANDICRAFTS TEACHER): On [employer] with Dr. Soto Herpes zoster [...] diabetes. Assessment & Plan (05/07/2024 8:55 PM HANDICRAFTS TEACHER): Pre-diabetes/hyperglycemia is a precursor to Dm. Stressed [...] diabetes. Assessment & Plan (09/06/2023 9:40 AM HANDICRAFTS TEACHER): Pre-diabetes/hyperglycemia is a precursor to Dm. Stressed [...] diabetes. Assessment & Plan (09/11/2021 11:22 PM HANDICRAFTS TEACHER): Pre-diabetes/hyperglycemia is a precursor to Dm. Stressed importance of working on diet (decrease your simple sugars and one carbohydrate with each meal) and increase you exercise to achieve weight loss and this will help prevent you from progressing to diabetes. Assessment & Plan (05/29/2021 8:18 PM HANDICRAFTS TEACHER): Pre-diabetes/hyperglycemia is a precursor to Dm. Stressed [...] diabetes. Assessment & Plan (08/31/2020 9:34 AM HANDICRAFTS TEACHER): Pre-diabetes is a precursor to Dm. Stressed [...] diabetes. Assessment & Plan (08/13/2019 9:00 AM HANDICRAFTS TEACHER): This is a significant, separately identifiable problem [...] b.I.d. Assessment & Plan (05/07/2024 8:54 PM HANDICRAFTS TEACHER): Depression symptoms are stable with Wellbutrin XL 150 Cymbalta 60 b.i.d. Assessment & Plan (04/21/2024 8:50 PM CDT): Depression symptoms are stable with the Wellbutrin XL 150 and Cymbalta 60 b.i.d. Assessment & Plan (01/22/2024 8:11 PM CDT): Depression symptoms are stable with Wellbutrin and Cymbalta Assessment & Plan (09/06/2023 9:40 AM HANDICRAFTS TEACHER): Depression is stable with Wellbutrin and Cymbalta Assessment & Plan (08/03/2023 8:31 AM HANDICRAFTS TEACHER): Stable with Cymbalta 60 and Wellbutrin XL [...] Cymbalta Assessment & Plan (09/11/2021 11:26 PM HANDICRAFTS TEACHER): Continue Wellbutrin and Cymbalta Assessment & Plan (05/29/2021 8:22 PM HANDICRAFTS TEACHER): Continue Wellbutrin and Cymbalta Assessment & Plan (05/24/2021 10:39 AM HANDICRAFTS TEACHER): Continue Wellbutrin and Cymbalta Assessment & Plan (12/24/2020 9:07 AM CDT): Continue wellbutrin and cymbalta Assessment & Plan (08/31/2020 9:35 AM HANDICRAFTS TEACHER): Continue wellbutrin and cymbalta Assessment & Plan (02/18/2020 9:47 PM CDT): Stable with the Cymbalata Assessment & Plan (08/13/2019 8:59 AM HANDICRAFTS TEACHER): Stable with Cymbalta and Wellbutrin Assessment & [...] regimen. Med list updated to reflect the [id number] one daily and Prozac 40mg. Mixed hyperlipidemia 03/29/2018 Assessment & Plan (10/22/2024 1:06 PM CDT): Encouraged patient to follow low fat/low chol diet like the Mediterranean diet. Increase good fats in the diet. Increase exercise. Monitor labs as needed. Continue Crestor 10 Assessment & Plan (05/07/2024 8:54 PM HANDICRAFTS TEACHER): Encouraged patient to follow low fat/low chol [...] statin Assessment & Plan (09/06/2023 9:42 AM HANDICRAFTS TEACHER): Encouraged patient to follow low fat/low chol [...] statin Assessment & Plan (09/11/2021 11:26 PM HANDICRAFTS TEACHER): Encouraged patient to follow low fat/low chol diet like the Mediterranean diet. Increase good fats in the diet. Increase exercise. Monitor labs as needed. Continue statin Assessment & Plan (05/29/2021 8:22 PM HANDICRAFTS TEACHER): Encouraged patient to follow fat/low chol diet like the Mediterranean diet. Increase good fats in the diet. Increase exercise. Monitor labs as needed. Continue statin Assessment & Plan (05/24/2021 10:39 AM HANDICRAFTS TEACHER): Encouraged patient to follow fat/low chol diet like the Mediterranean diet. Increase good fats in the diet. Increase exercise. Monitor labs as needed. Continue statin Assessment & Plan (12/24/2020 9:07 AM CDT): Encouraged patient to follow fat/low chol diet like the Mediterranean diet. Increase good fats in the diet. Increase exercise. Monitor labs as needed. Continue statin Assessment & Plan (08/31/2020 9:34 AM HANDICRAFTS TEACHER): Encouraged patient to follow fat/low chol diet like the Mediterranean diet. Increase good fats in the diet. Increase exercise. Monitor labs as needed. Continue statin Assessment & Plan (02/18/2020 9:46 PM CDT): Encouraged patient to continue low fat/low chol diet. Continue exercise. Increase good fats in the diet. Monitor labs as needed. Assessment & Plan (08/13/2019 8:59 AM HANDICRAFTS TEACHER): Encouraged patient to continue low fat/low chol [...] future Assessment & Plan (09/06/2023 9:40 AM HANDICRAFTS TEACHER): Continue PPI Assessment & Plan (04/06/2023 7:36 PM CDT): Continue PPI p.r.n. Assessment & Plan (01/20/2023 8:13 PM CDT): Continue PPI Assessment & Plan (09/12/2022 6:13 PM CDT): Continue PPI p.r.n. Assessment & Plan (06/03/2022 3:40 PM HANDICRAFTS TEACHER): Pyrosis poorly controlled on Nexium. Pt has [...] PPI Assessment & Plan (09/11/2021 11:26 PM HANDICRAFTS TEACHER): Continue PPI Assessment & Plan (12/24/2020 9:05 AM CDT): Continue PPI Assessment & Plan (02/18/2020 9:45 PM CDT): Continue PPI. Saw Dr. Linton for increased GERD sxs. If persist, encouraged to followup again with Dr. Linton. Assessment & Plan (08/13/2019 8:58 AM HANDICRAFTS TEACHER): Stable with PPI Assessment & Plan (04/29/2019 [...] exertion) Assessment & Plan (06/22/2022 10:30 AM HANDICRAFTS TEACHER): Patient is not currently using inhalers. She [...] CPAP Assessment & Plan (08/02/2024 11:49 AM HANDICRAFTS TEACHER): Due to the patient stating the pressure [...] readjusted. She denied need for supplies. DME [facility] patient Assessment & Plan (05/07/2024 8:55 PM HANDICRAFTS TEACHER): Continue with CPAP. Assessment & Plan (04/21/2024 8:49 PM CDT): Continue per Dr. Dunn. Has all her needed supplies for CPAP which she is using every night. Continue with Requip 0.5 mg HS for restless leg Assessment & Plan (01/22/2024 8:08 PM CDT): Continue CPAP per Dr. Dunn Assessment & Plan (09/06/2023 9:40 AM HANDICRAFTS TEACHER): Continue CPAP Assessment & Plan (06/21/2023 10:14 AM HANDICRAFTS TEACHER): Patient continue to wear her CPAP at [...] CPAP Assessment & Plan (06/22/2022 10:31 AM HANDICRAFTS TEACHER): Will continue CPAP therapy at an auto titrating range of 7-20 cm water pressure. Denied need for supplies. DME [employer] patient Assessment & Plan (05/02/2022 9:15 PM [...] water pressure. Patient denied need for supplies. [employer] [employer] patient. Patient is benefitting CPAP Assessment & Plan (09/11/2021 11:22 PM HANDICRAFTS TEACHER): Continue CPAP. Patient has all needed supplies. Assessment & Plan (07/13/2021 11:27 AM HANDICRAFTS TEACHER): Due to the patient stating she does not have enough pressure in her machine, I have increased the pressure to 13 cm water pressure. The patient denied need for for supplies. DME company [employer] patient. Have also ordered a new smart card set at 13 cm water pressure. Benefitting from CPAP therapy Assessment & Plan (05/29/2021 8:14 PM HANDICRAFTS TEACHER): Continue CPAP. Assessment & Plan (02/17/2021 11:09 AM CDT): The patient continues to be compliant with her CPAP at 8 cm water pressure. She has developed worsening daytime hypersomnia. She also has morning headaches and dry mouth. I have recommended proceeding with a CPAP titration study starting at 8 cm water pressure. Her DME is [facility] patient. Assessment & Plan (12/24/2020 9:04 AM CDT): Continue CPAP. Would like to see Pulm/sleep at [facility] as difficulty getting in consistently at [facility] and most of her care is now [facility] Assessment & Plan (02/18/2020 9:44 PM CDT): Continue CPAP Assessment & Plan (08/13/2019 8:46 AM HANDICRAFTS TEACHER): Using the CPAP. Has equipment as needed. [...] gabapentin. Assessment & Plan (08/23/2024 12:54 PM HANDICRAFTS TEACHER): Moderate cdai with report of increasing pain, [...] needed. Assessment & Plan (07/30/2024 11:22 AM HANDICRAFTS TEACHER): Moderate cdai with report of increased morning [...] with labs near her home ([facility] in [place]), but the following month will need to plan for an in person visit. She expressed understanding and agreement with this plan. Continue methotrexate 20 mg weekly, folic acid 2 mg daily, and hydroxychloroquine 200 mg BID. Labs today as below. Assessment & Plan (05/07/2024 8:55 PM HANDICRAFTS TEACHER): Managed by [facility]. Currently on Plaquenil and methotrexate and Orencia folic acid Mobic and gabapentin. Stressed she needs to be in contact with her manager pathology on when and which medicines to stop for the surgery. Assessment & Plan (04/21/2024 8:49 PM CDT): Continue per [facility]. They currently manage her [...] Plan (01/22/2024 8:17 PM CDT): Continue per [facility] as they manage her condition. Assessment & Plan (11/24/2023 9:58 AM CDT): Low cdai without inflammatory sounding pain. Will continue methotrexate 20 mg weekly, folic acid 2 mg daily, hydroxychloroquine 200 mg BID, and Orencia and monitor. Labs today as below. Follow up in 3 months or sooner as needed. Assessment & Plan (09/06/2023 9:42 AM HANDICRAFTS TEACHER): Rheumatoid arthritis is managed by [facility]. Currently on Plaquenil methotrexate Orencia and folic acid Assessment & Plan (09/01/2023 3:39 PM HANDICRAFTS TEACHER): Overall stable without notable synovitis and no inflammatory sounding pain. Will continue methotrexate 20 mg weekly, folic acid 2 mg daily, hydroxychloroquine 200 mg BID, and Orencia and monitor. Labs today as below. Follow up in 3 months or sooner as needed. Assessment & Plan (08/03/2023 8:28 AM HANDICRAFTS TEACHER): Continue with rheumatology. Assessment & Plan (06/30/2023 12:43 PM HANDICRAFTS TEACHER): Overall stable without notable synovitis and no inflammatory sounding pain. Will continue methotrexate 20 mg weekly, folic acid 2 mg daily, hydroxychloroquine 200 mg BID, and Orencia and monitor. Labs today as below. Assessment & Plan (06/02/2023 4:49 PM HANDICRAFTS TEACHER): Continue per Rheumatology Assessment & Plan (04/06/2023 7:35 PM CDT): Continue per Rheumatology. She has been in discussion with them on what medications to stop prior to her knee surgery. She states she was told to take all of her medicines accept the Orencia. Assessment & Plan (01/20/2023 8:12 PM CDT): Continue per [facility]umat[facility] Assessment & Plan (01/13/2023 3:42 [...] Plan (09/12/2022 6:06 PM CDT): Continue with [facility] Assessment & Plan (07/15/2022 1:41 PM HANDICRAFTS TEACHER): Low cdai. Significantly improved after IM triamcinolone [...] needed. Assessment & Plan (06/03/2022 3:37 PM HANDICRAFTS TEACHER): High cdai. Previously felt well controlled with current regimen. Due to burden of disease will give patient a triamcinolone injection. Patient made aware of SE of steroids including but not limited to HTN, increased blood glucose, cataracts, glaucoma, AVN, and osteoporosis with termite exterminator helper use. Should she flare again shortly [...] (01/23/2022 4:57 PM CDT): Continue management per [facility] Assessment & Plan (12/07/2021 9:02 AM CDT): Low cdai. Denies inflammatory sounding joint pain. Continue methotrexate 25 mg weekly, folic acid to 2 mg daily, Rinvoq 15 mg daily, hydroxychloroquine 200 mg BID, and cyclobenzaprine 5 mg qhs and monitor. Labs today as below. Plan for follow up in 3 months or sooner as needed. Assessment & Plan (09/11/2021 11:14 PM HANDICRAFTS TEACHER): Continue per [facility] Assessment & Plan (09/03/2021 11:25 AM HANDICRAFTS TEACHER): cdai = 12. Pt suspects increased joint [...] needed. Assessment & Plan (06/04/2021 10:25 AM HANDICRAFTS TEACHER): Low cdai. Denies inflammatory sounding pain at present. Will plan to continue methotrexate 25 mg weekly, folic acid to 2 mg daily, Rinvoq 15 mg daily, hydroxychloroquine 200 mg BID, and cyclobenzaprine 5 mg qhs and monitor. Labs today as below. Plan for follow up in 3 months or sooner as needed. Assessment & Plan (05/31/2021 9:15 PM HANDICRAFTS TEACHER): Continue per Rheumatology Assessment & Plan (05/29/2021 8:13 PM HANDICRAFTS TEACHER): Continue per Rheumatology. Currently on Plaquenil methotrexate and folic acid. Assessment & Plan (05/24/2021 10:38 AM HANDICRAFTS TEACHER): Continue per Rheumatology Assessment & Plan (03/05/2021 [...] needed. Assessment & Plan (09/03/2020 12:22 PM HANDICRAFTS TEACHER): Low cdai. Continues to feel improved with [...] needed. Assessment & Plan (08/31/2020 9:34 AM HANDICRAFTS TEACHER): Continue per [facility] Assessment & Plan (07/09/2020 12:22 PM HANDICRAFTS TEACHER): 64yoF with a h/o seropositive RA diagnosed [...] time. Assessment & Plan (06/04/2020 11:14 AM HANDICRAFTS TEACHER): 64yoF with a h/o seropositive RA diagnosed [...] needed. Assessment & Plan (05/14/2020 9:33 PM HANDICRAFTS TEACHER): Refer to new [facility] as Dr. Soto has . Assessment & Plan (02/18/2020 9:46 PM CDT): Continue per Rheum Assessment & Plan (08/13/2019 8:59 AM HANDICRAFTS TEACHER): Continue per Dr. Soto Assessment & Plan [...] recommendations from the bone metabolism group at [facility] Dr. Martinez. Appointment is scheduled in November. Has been on Reclast and Forteo. She also continues with vitamin-D Assessment & Plan (01/22/2024 8:08 PM CDT): Patient with osteoporosis. Has not been responding to Reclast. Forteo was tried by [facility] and she could not [...] 2024. Recommended today that she check with [facility] Osteoporosis center (at [facility]) to see how far out they are scheduling new patients, though she does not like this option due to distance from her house. Assessment & Plan (09/06/2023 9:40 AM HANDICRAFTS TEACHER): Managed by [facility]. Per patient they are making a referral to bone metabolism at [facility] she has not seen significant improvement with the Forteo or the Reclast. Assessment & Plan (09/01/2023 3:43 PM HANDICRAFTS TEACHER): DEXA: Lspine BMD 0.809 Tscore -2.2, L [...] plan. Assessment & Plan (06/30/2023 12:49 PM HANDICRAFTS TEACHER): DEXA: Lspine BMD 0.809 Tscore -2.2, L [...] PM CDT): Continue to monitor. Managed by [facility]. Patient is on Reclast calcium vitamin-D [...] exercise Assessment & Plan (07/15/2022 1:42 PM HANDICRAFTS TEACHER): 01/27/2021 DEXA: Lspine -1.8, L femoral neck -1.9, L total hip -1.2, R femoral neck -2.3, R total hip -1.0, FRAX major 32% and hip 7%. Received Reclast 07/2021. Continue yearly Reclast, scheduled for 07/22 Assessment & Plan (06/03/2022 3:38 PM HANDICRAFTS TEACHER): 01/27/2021 DEXA: Lspine -1.8, L femoral neck [...] Plan (01/23/2022 5:02 PM CDT): Managed by [facility] currently on Reclast calcium and vitamin-D Assessment & Plan (12/07/2021 9:04 AM CDT): 01/27/2021 DEXA: Lspine -1.8, L femoral neck -1.9, L total hip -1.2, R femoral neck -2.3, R total hip -1.0, FRAX major 32% and hip 7%. Received Reclast 07/2021. Continue yearly Reclast. Assessment & Plan (09/03/2021 11:26 AM HANDICRAFTS TEACHER): 01/27/2021 DEXA: Lspine -1.8, L femoral neck -1.9, L total hip -1.2, R femoral neck -2.3, R total hip -1.0, FRAX major 32% and hip 7%. Received Reclast 07/2021. Continue yearly reclast and daily vitamin D-calcium supplement. Assessment & Plan (06/04/2021 10:27 AM HANDICRAFTS TEACHER): 01/27/2021 DEXA: Lspine -1.8, L femoral neck [...] order provided today, she will schedule at [facility] Assessment & Plan (12/24/2020 9:06 AM CDT): Continue Reclast thru Rheum Continue calcium, vitD and exercise Assessment & Plan (12/03/2020 10:45 AM CDT): Vitamin D level was 68. Received Reclast 07/09/2020. Last DEXA per available records was 01/31/2019, due this summer - order provided today, she will schedule at [facility] Assessment & Plan (09/03/2020 12:23 PM HANDICRAFTS TEACHER): Vitamin D level was 68. Received Reclast 07/09/2020. Last DEXA per available records was 01/31/2019, due this summer. Assessment & Plan (07/09/2020 12:23 PM HANDICRAFTS TEACHER): Overdue for Reclast, last infusion was 03/28/2019, will receive infusion today. Vitamin D level was 68 Last DEXA per available records was 01/31/2019 Assessment & Plan (06/04/2020 11:15 AM HANDICRAFTS TEACHER): Overdue for Reclast, last infusion was 03/28/2019, will check benefits. Recheck vitamin D level now. Last DEXA per available records was 01/31/2019 Assessment & Plan (02/18/2020 9:46 PM CDT): Calcium, vit D and exercise. Continue to monitor DXA Assessment & Plan (08/13/2019 8:58 AM HANDICRAFTS TEACHER): Continue with Calcium, Vit D and Exercise. Recheck DXA iin Fall 2019 with mammogram Resolved Problems Problem Noted Date Diagnosed Date Resolved Date Encounter for pre-operative examination 05/07/2024 10/09/2024 Assessment & Plan (05/07/2024 8:57 PM HANDICRAFTS TEACHER): I have examined this patient and ordered [...] Krishnamurthy. 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 Daniels Stressed importance of very close follow-up BMI 37.0-37.9, adult 09/06/2023 024 Assessment & Plan (10/13/2023 7:38 AM CDT): Discussed the patient's BMI. The BMI is above average. BMI management plan is completed. BMI Follow-up includes: nutrition counseling, exercise counseling and education provided. Assessment & Plan (09/06/2023 9:42 AM HANDICRAFTS TEACHER): Discussed the patient's BMI. The BMI is above average. BMI management plan is completed. BMI Follow-up includes: nutrition counseling, exercise counseling and education provided. Hyperglycemia 09/06/2023 09/06/2023 Positive depression screening 09/06/2023 09/06/2023 Annual physical exam 09/06/2023 024 Assessment & Plan (09/06/2023 9:43 AM HANDICRAFTS TEACHER): Encouraged healthy lifestyle, good nutrition and exercise. Encouraged Calcium and Vitamin D and weight bearing exercise for bone health. Reviewed immunizations Reviewed age appropirate screenings. Orthopedic aftercare 08/09/2023 025 Right knee pain 08/09/2023 09/06/2023 Sinus congestion 08/07/2023 09/06/2023 Assessment & Plan (08/07/2023 7:54 PM HANDICRAFTS TEACHER): Persistent sinusitis symptoms along with cough. Will start doxy b.i.d.. Start antihistamine (Claritin OR Zyrtec), Mucinex 12hour and Steroid nasal spray (Flonase). Push fluids. Rest. Supportive care. If sxs worsen or don\'t improve, pt is to followup in the office. BMI 35.0-35.9,adult 08/03/2023 09/06/19 24 Assessment & Plan (08/07/2023 7:51 PM HANDICRAFTS TEACHER): Discussed the patient's BMI. The BMI is above average. BMI management plan is completed. BMI Follow-up includes: nutrition counseling, exercise counseling and education provided. Assessment & Plan (08/03/2023 8:29 AM HANDICRAFTS TEACHER): Discussed the patient's BMI. The BMI is [...] 01/22/2024 Assessment & Plan (06/02/2023 4:57 PM HANDICRAFTS TEACHER): Later in the day received critical lab call for a CO2 value at 42. My staff contacted the patient and she was instructed to go to the ER for further evaluation to determine underlying cause. She states throughout the day she has noticed a little bit more shortness of breath. [facility] Charge nurse was notified [...] surgery. Will defer cardiac clearance to her experimental assembler. Her chronic medical conditions are stable. [facility] as instructed her to hold the [...] Ge Sexton on May 04 at [facility]. Need for vaccination for Strep pneumoniae [...] symptoms worsen or do not respond to hkak-pct-yhagsev allergy medicines within the next week she [...] provided. Assessment & Plan (08/23/2022 2:19 PM HANDICRAFTS TEACHER): Discussed the patient's BMI. The BMI is [...] plans Assessment & Plan (07/18/2022 10:20 AM HANDICRAFTS TEACHER): CT revealed pelvic lipomatosis that is compressing [...] 12/20/2022 Assessment & Plan (07/18/2022 10:21 AM HANDICRAFTS TEACHER): CT revealed pelvic lipomatosis that is compressing [...] plan, Assessment & Plan (07/08/2022 12:33 PM HANDICRAFTS TEACHER): Patient has had dysuria. She was started [...] 07/08/202204/06 Assessment & Plan (07/18/2022 10:21 AM HANDICRAFTS TEACHER): CT revealed pelvic lipomatosis that is compressing [...] plan, Assessment & Plan (07/08/2022 5:58 PM HANDICRAFTS TEACHER): Images from the original note were not [...] STAT abd/pelvis with and without contrast at [place]. Check labs STAT. STAT CT Abd/pelvis without [...] 09/06/2023 Assessment & Plan (07/08/2022 12:33 PM HANDICRAFTS TEACHER): Patient has had dysuria. She was started [...] STAT abd/pelvis with and without contrast at [place]. Check labs STAT. Assessment & Plan (07/06/2022 8:50 AM HANDICRAFTS TEACHER): Pt presents with dysuria. Urine dip completed. [...] 35.00-39.99. Assessment & Plan (07/18/2022 10:23 AM HANDICRAFTS TEACHER): Discussed the patient's BMI. The BMI is above average. BMI management plan is completed. BMI Follow-up includes: nutrition counseling, exercise counseling and education provided. Assessment & Plan (07/08/2022 12:30 PM HANDICRAFTS TEACHER): Discussed the patient's BMI. The BMI is [...] She has received multiple injections from her manager pathology regarding her knee but yesterday when she [...] 01/23/2022 Assessment & Plan (09/11/2021 11:28 PM HANDICRAFTS TEACHER): Patient has never had a full skin exam. She has quite a few lesions scattered and would benefit from a full exam. Will make referral Annual physical exam 09/11/2021 022 Assessment & Plan (09/11/2021 11:28 PM HANDICRAFTS TEACHER): Encouraged healthy lifestyle, good nutrition and exercise. Encouraged Calcium and Vitamin D and weight bearing exercise for bone health. Reviewed immunizations Reviewed age appropirate screenings. Cough 08/13/2021 01/23/2022 Assessment & Plan (08/13/2021 3:43 PM HANDICRAFTS TEACHER): Patient to presume positive COVID/FLU until results are available and plan to self isolate for up to 10 days from the onset of sxs. Check COVID/FLU test thru [facility] collection site in [place]. Let pt know the newest CDC recommendations [...] future. Assessment & Plan (07/13/2021 11:28 AM HANDICRAFTS TEACHER): I have ordered the patient Claritin 10 [...] provided. Assessment & Plan (09/11/2021 11:27 PM HANDICRAFTS TEACHER): Obesity is unchanged. Discussed the patient's BMI. The BMI is above average. BMI management plan is completed. BMI Follow-up includes: nutrition counseling, exercise counseling and education provided. Assessment & Plan (05/29/2021 8:24 PM HANDICRAFTS TEACHER): Obesity is unchanged. Discussed the patient's BMI. The BMI is above average. BMI management plan is completed. BMI Follow-up includes: nutrition counseling, exercise counseling and education provided. Assessment & Plan (05/12/2021 1:26 PM HANDICRAFTS TEACHER): Obesity is unchanged. Discussed the patient's BMI. The BMI is above average. BMI management plan is completed. BMI Follow-up includes: nutrition counseling, exercise counseling and education provided. BMI 37.0-37.9, adult 05/12/2021 022 Assessment & Plan (09/11/2021 11:27 PM HANDICRAFTS TEACHER): Obesity is unchanged. Discussed the patient's BMI. The BMI is above average. BMI management plan is completed. BMI Follow-up includes: nutrition counseling, exercise counseling and education provided. Assessment & Plan (05/29/2021 8:24 PM HANDICRAFTS TEACHER): Obesity is unchanged. Discussed the patient's BMI. The BMI is above average. BMI management plan is completed. BMI Follow-up includes: nutrition counseling, exercise counseling and education provided. Assessment & Plan (05/12/2021 1:26 PM HANDICRAFTS TEACHER): Obesity is unchanged. Discussed the patient's BMI. The BMI is above average. BMI management plan is completed. BMI Follow-up includes: nutrition counseling, exercise counseling and education provided. Tinea corporis 04/14/2021 01/23/2022 Assessment & Plan (05/31/2021 9:15 PM HANDICRAFTS TEACHER): Improving with Lotrisone. Keep the area clean and dry Assessment & Plan (05/29/2021 8:24 PM HANDICRAFTS TEACHER): Lotrisone to pharmacy. Encouraged her to keep the area clean and dry use her dryer to dry the skin before applying the cream. She is to call if symptoms worsen or do not resolve. Need for immunization against influenza 04/14/2021 05/31/2021 Assessment & Plan (05/29/2021 8:24 PM HANDICRAFTS TEACHER): Fluid updated in the office Medicare annual wellness visit, subsequent 04/13/2021 05/31/2021 Assessment & Plan (05/29/2021 8:23 PM HANDICRAFTS TEACHER): Encouraged healthy lifestyle, good nutrition and exercise. [...] 12/30/2020 Assessment & Plan (08/31/2020 9:31 AM HANDICRAFTS TEACHER): Error. This should be right calf but PT order sent and corrected so unable to remove. Fatigue 08/31/2020 09/06/2023 Assessment & Plan (04/06/2023 7:43 PM CDT): Probably multifactorial. Check labs and followup to re-evaluate Assessment & Plan (05/02/2022 9:16 PM CDT): Probably multifactorial. Check labs and followup to re-evaluate Assessment & Plan (08/31/2020 9:34 AM HANDICRAFTS TEACHER): Probably multifactorial. Check labs and followup to re-evaluate Pain in both lower extremities 08/31/2020 09/06/2023 Assessment & Plan (09/01/2023 3:41 PM HANDICRAFTS TEACHER): Cramping lower leg pain has resolved with [...] 021 Assessment & Plan (08/31/2020 9:33 AM HANDICRAFTS TEACHER): Obesity is unchanged. Discussed the patient's BMI. The BMI is above average. BMI management plan is completed. BMI Follow-up includes: nutrition counseling, exercise counseling and education provided. Pain of right calf 08/26/2020 Assessment & Plan (08/31/2020 9:31 AM HANDICRAFTS TEACHER): This is a significant, separately identifiable problem that was evaluated and managed on the same day as the wellness exam Unable to rule out DVT with her calf pain/sxs. Check STAT Venous doppler. Recvd Results and discussed with patient via phone. Negative for DVT. Recommend PT. Prefers [place] Annual physical exam 08/24/2020 021 Assessment & Plan (08/31/2020 9:34 AM HANDICRAFTS TEACHER): Encouraged healthy lifestyle, good nutrition and exercise. Encouraged Calcium and Vitamin D and weight bearing exercise for bone health. Reviewed immunizations Reviewed age appropirate screenings. Dizziness 05/07/2020 09/06/2023 Assessment & Plan (05/14/2020 9:35 PM HANDICRAFTS TEACHER): Suspect the dizziness is inner ear related. [...] imaging. Assessment & Plan (05/07/2020 1:49 PM HANDICRAFTS TEACHER): Declines to report to er now 'I [...] 05/14/2020 Assessment & Plan (05/07/2020 1:49 PM HANDICRAFTS TEACHER): Declines to report to er now 'I [...] 12/30/2020 Assessment & Plan (05/07/2020 1:49 PM HANDICRAFTS TEACHER): Declines to report to er now 'I [...] provided Assessment & Plan (05/31/2021 9:15 PM HANDICRAFTS TEACHER): Mammogram order provided Assessment & Plan (02/18/2020 9:47 PM CDT): Mammogram order provided today Medicare annual wellness visit, subsequent 02/15/2020 02/15/2020 Precordial pain 09/04/2019 09/06/2023 Assessment & Plan (08/07/2023 7:50 PM HANDICRAFTS TEACHER): Workup in the hospital. Cardiology states her [...] inhaler. Assessment & Plan (07/13/2021 11:26 AM HANDICRAFTS TEACHER): The patient will continue with Dulera 2 [...] 020 Assessment & Plan (08/13/2019 8:59 AM HANDICRAFTS TEACHER): Encouraged healthy lifestyle, good nutrition and exercise. Encouraged Calcium and Vitamin D and weight bearing exercise for bone health. Reviewed immunizations Reviewed age appropirate screenings. Obesity, morbid, BMI 40.0-49.9 08/13/2019 09/23/2020 Assessment & Plan (08/26/2020 7:10 AM HANDICRAFTS TEACHER): Obesity is unchanged. Discussed the patient's BMI. The BMI is above average. BMI management plan is completed. BMI Follow-up includes: nutrition counseling, exercise counseling and education provided. Assessment & Plan (05/14/2020 9:33 PM HANDICRAFTS TEACHER): Obesity is unchanged. Discussed the patient's BMI. [...] provided. Assessment & Plan (08/13/2019 8:58 AM HANDICRAFTS TEACHER): Obesity is unchanged. Discussed the patient's BMI. [...] change Assessment & Plan (08/13/2019 9:01 AM HANDICRAFTS TEACHER): This is a significant, separately identifiable problem [...] 01/22/2024 Assessment & Plan (09/06/2023 9:42 AM HANDICRAFTS TEACHER): Probably multifactorial. Check labs and followup to re-evaluate Assessment & Plan (09/03/2021 11:28 AM HANDICRAFTS TEACHER): She notes increased fatigue and lack of [...] re-evaluate Assessment & Plan (08/13/2019 9:08 AM HANDICRAFTS TEACHER): Probably multifactorial. Check labs and followup to re-evaluate Check labs prior to next visit BMI 40.0-44.9, adult 08/02/2019 020 Assessment & Plan (08/13/2019 8:57 AM HANDICRAFTS TEACHER): Obesity is unchanged. Discussed the patient's BMI. The BMI is above average. BMI management plan is completed. BMI Follow-up includes: nutrition counseling, exercise counseling and education provided. Assessment & Plan (08/02/2019 7:21 AM HANDICRAFTS TEACHER): Obesity is unchanged. Discussed the patient's BMI. The BMI is above average. BMI management plan is completed. BMI Follow-up includes: nutrition counseling, exercise counseling and education provided. Morbid obesity 08/02/2019 08/13/2019 Assessment & Plan (08/02/2019 7:20 AM HANDICRAFTS TEACHER): Obesity is unchanged. Discussed the patient's BMI. The BMI is above average. BMI management plan is completed. BMI Follow-up includes: nutrition counseling, exercise counseling and education provided. Acute non-recurrent maxillary sinusitis 08/02/2019 08/13/2019 Assessment & Plan (08/02/2019 7:47 AM HANDICRAFTS TEACHER): Start antibiotic, antihistamine, Mucinex and Steroid nasal [...] She is being sent directly to [facility] and they were working her in [...] 21 Assessment & Plan (05/14/2020 9:33 PM HANDICRAFTS TEACHER): Completed Doxy and steroid. No s/s infection. [...] p.r.n. Assessment & Plan (08/13/2019 8:59 AM HANDICRAFTS TEACHER): Continue with NSAIDs prn Atheroscler of [place] artery of both legs with intermit claudication 10/31/2018 12/20/2022 Assessment & Plan (09/11/2021 11:23 PM HANDICRAFTS TEACHER): Continue per vascular. She is on aspirin and statin Assessment & Plan (12/24/2020 9:03 AM CDT): Sxs stable. On ASA, statin and encouraged daily exercise. Assessment & Plan (02/18/2020 9:43 PM CDT): Continue per cardio. On ASA and statin Assessment & Plan (08/13/2019 8:45 AM HANDICRAFTS TEACHER): Continues with Dr. Alonso salmeron Assessment & Plan (11/01/2018 11:00 PM CDT): Pt sxs well controlled. On ASA Coronary artery disease of n ative artery of [place] heart with stable angina pectoris 10/31/2018 12/30/2020 Assessment & Plan (08/13/2019 8:36 AM HANDICRAFTS TEACHER): On ASA and Nitrate. Continue per cardio Depression 07/16/2018 09/11/2021 Frontal sinusitis 06/26/2018 12/24/2020 Leukopenia 03/29/2018 12/30/2020 Other chronic pain 08/05/2017 3 Chronic seasonal allergic rh initis due to pollen 04/25/2017 12/30/2020 Assessment & Plan (12/24/2020 9:03 AM CDT): Continue current regimen with singulair and otc Assessment & Plan (02/18/2020 9:44 PM CDT): Continue with otc regimen Assessment & Plan (08/13/2019 8:46 AM HANDICRAFTS TEACHER): Continue current regimen Assessment & Plan (11/01/2018 [...] potassium Assessment & Plan (09/11/2021 11:26 PM HANDICRAFTS TEACHER): Bp is stable/in acceptable range for any co-morbidities. Encouraged to limit sodium intake and exercise for weight control. Currently stable without medication Assessment & Plan (05/29/2021 8:19 PM HANDICRAFTS TEACHER): Bp is stable/in acceptable range for any co-morbidities. Encouraged to limit sodium intake and exercise for weight control. Continue Lasix is helping with the swelling and addition. Blood pressure stable Assessment & Plan (05/24/2021 10:38 AM HANDICRAFTS TEACHER): Continue Lasix potassium Assessment & Plan (12/24/2020 9:05 AM CDT): Bp is stable/in acceptable range for any co-morbidities. Encouraged to limit sodium intake and exercise for weight control. Assessment & Plan (08/31/2020 9:32 AM HANDICRAFTS TEACHER): Bp is stable/in acceptable range for any co-morbidities. Encouraged to limit sodium intake and exercise for weight control. Stable with laxis currently Assessment & Plan (02/18/2020 9:44 PM CDT): Bp is stable/in acceptable range for any co-morbidities. Encouraged to limit sodium intake and exercise for weight control. Assessment & Plan (08/13/2019 8:57 AM HANDICRAFTS TEACHER): Bp is stable/in acceptable range for any [...] difficulty pulling them. Recommend finding some on [employer] that fit her calf that she can zip on and off. Showed them to her on [employer] and where to order them. She states she will try to get them. Assessment & Plan (05/31/2021 9:16 PM HANDICRAFTS TEACHER): Improving slowly. May have been due to the Relafen. She is on 60 of Lasix with potassium 10 mEq daily. Continue with current plan. Keep legs elevated. Utilize compressi to improve cleared. on hose. Call if symptoms worsen or do not continue to improve. Assessment & Plan (05/29/2021 8:23 PM HANDICRAFTS TEACHER): Persistent lower extremity edema that has improved [...] CMP. Assessment & Plan (05/24/2021 10:39 AM HANDICRAFTS TEACHER): Patient that her swelling was improving since discharge for over the last day or so it seems to be increasing. Will increase the Lasix to 40mg Start K 10meq daily Recheck labs in 5 days Assessment & Plan (08/31/2020 9:33 AM HANDICRAFTS TEACHER): Continue lasix Palpitations 12/08/2015 12/30/2020 Overview (10/09/2016): Palpitations Other abnormal glucose 11/11/201508/31 Asthma 10/14/2015 12/24/2020 Assessment & Plan (08/13/2019 8:49 AM HANDICRAFTS TEACHER): Continue with current regimen and with Pulmonary [...] noted. Assessment & Plan (08/23/2024 10:16 AM HANDICRAFTS TEACHER): 02/2021 XR L knee with mild to moderate OA, now s/p B TKA. Following with ortho as planned. Assessment & Plan (07/30/2024 11:23 AM HANDICRAFTS TEACHER): 02/2021 XR L knee with mild to [...] March. Assessment & Plan (09/01/2023 3:42 PM HANDICRAFTS TEACHER): 02/2021 XR L knee with mild to moderate OA, R knee negative. Had injections with ortho without benefit, now s/p L TKA. Assessment & Plan (06/30/2023 12:46 PM HANDICRAFTS TEACHER): 02/2021 XR L knee with mild to [...] g/d. Assessment & Plan (07/15/2022 1:41 PM HANDICRAFTS TEACHER): 02/2021 XR L knee with mild to moderate OA, R knee negative. Had injections with ortho with benefit. Unable to afford PT. Can continue Tylenol Arthritis, not to exceed 4 g/d. Assessment & Plan (06/03/2022 9:58 AM HANDICRAFTS TEACHER): 02/2021 XR L knee with mild to [...] evaluation. Assessment & Plan (09/03/2021 11:27 AM HANDICRAFTS TEACHER): XR L knee with mild to moderate [...] able. Assessment & Plan (06/04/2021 10:27 AM HANDICRAFTS TEACHER): XR L knee with mild to moderate [...] above. Assessment & Plan (09/03/2020 12:23 PM HANDICRAFTS TEACHER): 10/27/2017 XR L knee: mild tricompartmental OA. Will continue meloxicam as above. Assessment & Plan (07/09/2020 12:24 PM HANDICRAFTS TEACHER): 10/27/2017 XR L knee: mild tricompartmental OA. Will continue meloxicam as above. In the future may consider trial of PT. Encounters Date Type Department Care Team Description 10/23/2024 1:00 PM CDT Office Visit [address] [place] [address] [phone] Alee Elizondo PA Acute non-recurrent sinusitis, unspecified location (Primary Dx); Acute cough; BMI 34.0-34.9,adult; Morbid obesity (HCC) 10/19/2024 Orders Only [address] [phone] ProviderTania MD 10/12/2024 Results Follow-Up [address] [place] [address] [phone] Alee Elizondo PA 10/10/2024 7:30 AM CDT Office Visit [address] [place] [phone] Alee Elizondo PA Annual physical exam (Primary Dx); 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); Age-related osteoporosis without current pathological fracture; OWEN on CPAP; Moderate episode of recurrent major depressive disorder (HCC); Mixed hyperlipidemia; Pre-diabetes; Gastroesophageal reflux disease without esophagitis; Pelvic lipomatosis; BMI 35.0-35.9,adult; Morbid obesity (HCC) 10/10/[address] [place] [phone] Alee Elizondo PA Medication Request 10/07/2024 Orders Only [facility] [place] [facility] [address] [place] [phone] Alee Elizondo PA 10/04/2024 Results Follow-Up [address] [place] [phone] Alee Elizondo PA 10/04/2024 Orders Only [address] [place] [phone] ProviderTania MD 10/03/[address] [place] [phone] Alee Elizondo PA 09/26/2024 Orders Only [address] [place] [phone] Alee Elizondo PA Breast cancer screening by mammogram (Primary Dx) 09/25/2024 11:00 AM CDT Office Visit [facility] Care at [address] [phone] Jessica Collins NP Influenza A (Primary Dx); Acute cough 09/25/2024 Results Follow-Up [address] [place] [phone] Alee Elizondo PA 09/20/2024 8:00 AM CDT Office Visit [facility] [address] [address] [place] [address] [phone] Devika Marin MD Venous insufficiency (chronic) (peripheral) (Primary Dx); Mixed hyperlipidemia 09/20/2024 Telephone [facility] [address] [place] [address] [place] [phone] Michael Motta MD med clarification 09/14/[address] [phone] Codi Branham 09/13/2024 2:45 PM CDT Office Visit [facility] [address] [place] [address] [place] [phone] Michael Motta MD Chronic pain of right knee (Primary Dx); History of total knee arthroplasty, right 09/13/2024 1:44 PM CDT - 09/13/2024 11:59 PM CDT Hospital Encounter [facility] [address] [place] [address] Chronic pain of right knee Discharge Disposition: Discharge to home or self care 09/04/2024 Results Follow-Up [address] [place] [phone] Alee Elizondo PA 08/31/[address] [place] [phone] Alee Elizondo PA Medical Question/Miscellaneou s 08/31/2024 Orders Only [address] [place] [phone] Provider, MD Tania 08/29/2024 Nurse Triage [address] [place] [phone] Alee Elizondo PA 08/29/[address] [place] [phone] Shailesh Dunn MD Med Refill (Ropinirol HCL 0.5MG tab) 08/24/2024 Results Follow-Up [address] [phone] Sangita Farrar PA 08/23/2024 11:30 AM HANDICRAFTS TEACHER Office Visit [address] [phone] Sangita Farrar PA 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) (Primary Dx); Primary osteoarthritis involving multiple joints; Encounter for medication monitoring 08/23/2024 Orders Only [facility] [address] [place] [address] Alee Elizondo PA 08/23/[address] [place] [phone] Sangita Farrar PA Orencia Approved 08/21/2024 Telephone [facility] [address] [place] [phone] Codi Branham from Last 3 Months Immunizations Immunization Administration Dates Next Due COVID-19 mRNA (EQAL) 0.3 m L (30 mcg) vaccine (12 [...] 07/04/2024(Deferr ed: Patient Refused),03/30/2022 PPD TEST 05/11/2023 [employer] SARS-CoV-2 Monovalent Vaccination (12+ Yrs) [facility]OCK-READY TO [...] Jeanette Congestive hea rt failure; Stroke Mother Jaenette Stroke; Relation Name Status Comments Brother Father Salomón Mother Jeanette Social History Tobacco Use Types Packs/Day Years Used Date Smoking Tobacco: Never Smokeless Tobacco: Never Tobacco Cessation:Counseling Given: Not Answered Comments:Never used Alcohol Use Standard Drinks/Week Comments No 0 (1 standard drink = 0.6 oz pur e alcohol) [facility] Utilities Answer Date Recorded In the past 12 months has [employer] electric, gas, oil, or water [employer] threatened to shut off services in your [...] were you homeless or living in a [place] facility (including now)? No 05/30/2024 Personal Safety Answer Date Recorded Have you ever been in or are you currently in a harmful physical or emotional relationship or is someone making you feel afraid or unsafe? Denies 05/30/2024 Comments No Sex and Gender Information Value Date Recorded Sex Assigned at Not on file Legal Sex Female 8:04 PM HANDICRAFTS TEACHER Gender Identity Female 02/15/2020 6:08 PM [...] history exists Medical Devices Implanted Type Area Drop Man Device Identifier Shelf Expiration Date Model / Serial / Lot [employer] Simplex P Radiopaque Full Dose Cement Bone Sterile 6191-1-010 - [id number] Implanted:Qty: 2 on 05/04/2023 by Michael Motta MD at [facility] Bone Cement Left: Knee [employer] 05/03/2025 6191-1-010 / 6191-1-001 / [id number] [employer] Simplex P Radiopaque Full Dose Cement Bone Sterile 6191-1-010 - [id number] Implanted:Qty: 2 on 05/30/2024 by Michael Motta MD at [facility] Bone Cement Right: Patella [employer] [id number] 05/03/2026 6191-1-010 / / DOI319 [employer] Persona 14mm 30+ Mm Knee Tibia Taper Extension Stem [id number] - [id number] 4 - [id number] Implanted:Qty: 1 on 05/04/2023 by Michael Motta MD at [facility] Left: Knee [employer] [id number] 02/15/2033 [id number] / [id number]- 14 / [id number] [employer] Persona Cemented Cruciate Retaining Knee Left 7 Narrow Component [id number] - [id number] 1 - [id number] Implanted:Qty: 1 on 05/04/2023 by Michael Motta MD at [facility] Left: Knee [employer] [id number] 10/25/2032 [id number] / 99-4620-957- 01 / [id number] [employer] Baseplate Tibial Knee Cemented Left Fixed Stemmed Persona Size D Tivanium [id number] - [id number] 1 - [id number] Implanted:Qty: 1 on 05/04/2023 by Michael Motta MD at [facility] Left: Knee [employer] [id number] 09/11/2032 [id number] / [id number]- 01 / [id number] [employer] Persona 11mm Knee Left 6-7 C-D Insert Articular Vivacit-E Sterile [id number] - B52-0075-086-6 1 - [id number] Implanted:Qty: 1 on 05/04/2023 by Michael Motta MD at [facility] Left: Knee [employer] [id number] 12/28/2025 [id number] / [id number] 11 / [id number] [employer] Persona 32mm Knee Component Patellar All Poly Latex Free 85-8613-099-32 - [id number] Implanted:Qty: 1 on 05/04/2023 by Michael Motta MD at [facility] [employer] 12/19/2027 [id number] / / [id number] [employer] Baseplate Tibial Knee Cemented Right Fixed Stemmed Persona Size C Tivanium [id number] - [id number] Implanted:Qty: 1 on 05/30/2024 by Michael Motta MD at [facility] Right: Knee [employer] [id number] 03/22/2033 [id number] / / [id number] [employer] Persona 29mm Knee Component Patellar All Poly Latex Free [id number] - [id number] Implanted:Qty: 1 on 05/30/2024 by Michael Motta MD at [facility] Right: Knee [employer] [id number] 12/18/2028 [id number] / / [id number] [employer] Persona 13mm Cruciate Retain Knee Right 6-7 Cd Insert Articular Latex Free [id number] - [id number] Implanted:Qty: 1 on 05/30/2024 by Michael Motta MD at [facility] Right: Patella [employer] [id number] 05/04/2025 [id number] / / [id number] [employer] Persona Cruciate Retaining Cemented Knee Right 7 Narrow Component [id number] - [id number] Implanted:Qty: 1 on 05/30/2024 by Michael Motta MD at [facility] Right: Knee [employer] [id number] 12/27/2033 [id number] / / [id number] [employer] Persona 14mm 30+ Mm Knee Tibia Taper Extension Stem [id number] - [id number] Implanted:Qty: 1 on 05/30/2024 by Michael Motta MD at [facility] Right: Knee [employer] [id number] 04/11/2034 [id number] / / [id number] Procedures Procedure Name Priority Date/Time Associated Diagnosis [...] Read Routine (OP Routine) 08/29/2024 12:23 PM HANDICRAFTS TEACHER COMPREHENSIVE METABOLIC PANEL Routine 08/23/2024 2:11 PM HANDICRAFTS TEACHER Encounter for medication monitoring CBC WITH AUTO DIFFERENTIAL Routine 08/23/2024 2:11 PM HANDICRAFTS TEACHER Encounter for medication monitoring SCAN - LABS 08/23/2024 DEXA AXIAL SKELETON BONE DENSITY 1 OR MORE SITES Schedule Routine, Read Routine (OP Routine) 04/12/2023 8:14 AM CDT COLONOSCOPY Routine 07/27/2021 HEPATITIS C ANTIBODY Routine 06/04/2020 10:29 AM HANDICRAFTS TEACHER Encounter for screening for other viral diseases Chronic fatigue from Last 3 Months or Most Recently Relevant to Health Maintenance Results * POC Influenza A/B, COVID-19 antigen (10/23/2024 1:14 PM CDT) Influenza A Ag, POC Negative Negative [facility] Influenza B Ag, POC Negative Negative [facility] COVID-19 Ag POC Presumptive Negative Presumptive Negative, Invalid [facility] Nasal 10/23/2024 1:14 PM CDT Alee OSMAN POINT OF CARE TEST ORDERAB LES Final Result [facility] [address] [facility] [address] [place] [address] * (ABNORMAL) Urine culture (10/10/2024 2:46 PM [...] TEST ORDERABLES Final Result Performing Organization Address [facility]/ZIP Co de Phone Number [facility] [address] [place] [address], [facility] * XR Knee Right 3 [...] John Sparrow M.D. RB T: Report ID: [id number] Reading Location: [id number] Procedure Note John Sparrow MD - 09/18/2024 [...] John Sparrow M.D. RB T: Report ID: [id number] Reading Location: [id number] Michael Motta MD IMG XR PROCEDURES Final Re sult * (ABNORMAL) CT Abdomen Pelvis W Contrast (08/29/2024 12:23 PM HANDICRAFTS TEACHER) Anatomical Region Laterality Modality Body N/A Computed Tomogra phy Historical Provider MD [facility] CT PROCEDURES Edited Result - Final * CBC with auto differential (08/23/2024 2:11 PM HANDICRAFTS TEACHER) WBC 4.8 3.8 - 10.8 Thousand/u L [...] [facility] Blood 08/23/2024 2:11 PM HANDICRAFTS TEACHER 08/23/2024 2:11 PM HANDICRAFTS TEACHER Sangita OSMAN LAB BLOOD ORDERABLES Vy gabriele Result [facility] [address] [address] [id number] * (ABNORMAL) Comprehensive metabolic panel (08/23/2024 2:11 PM HANDICRAFTS TEACHER) Glucose 188(H) 65 - 99 mg/dL [facility] [...] [facility] Blood 08/23/2024 2:11 PM HANDICRAFTS TEACHER 08/23/2024 2:11 PM HANDICRAFTS TEACHER Result [facility] Sangita OSMAN LAB BLOOD ORDERABLES Vy l Result Performing Organization Address [facility]/ZIP Co de Phone Number [facility] [address] [place] [address] * SCAN - LABS (08/23/2024) Result [facility] Alee OSMAN Final Resu lt * (ABNORMAL) Dexa Axial Skeleton Bone Density 1 or 2 Site (04/12/2023 8:14 AM CDT) Anatomical Region Laterality Modality Body N/A Radiographic Melanie ging Result [facility] Historical Provider IMG DXA PROCEDURES Edited Result - Final * Colonoscopy (07/27/2021) Anatomical Region Laterality Modality Other Result [facility] Historical Provider ENDOSCOPY PROCEDURES Vy l Result * Hepatitis C antibody (06/04/2020 10:29 AM HANDICRAFTS TEACHER) Hep C Ab NON-REACTI VE NON-REACT ALEXYS [facility] SIGNAL TO CUT-OFF 0.02 <1.00 [facility] Comment: HCV antibody was non-reactive. There is no laboratory evidence of HCV infection. In most cases, no further action is required. However, if recent HCV exposure is suspected, a test for HCV RNA (test code 99270) is suggested. For additional information please refer to http://education.[employer]/faq/OEL04t1 (This link is being provided for informational/ educational purposes only.) Blood specimen (specimen) 06/04/2020 10:29 AM HANDICRAFTS TEACHER 06/04/2020 10:30 AM HANDICRAFTS TEACHER Result [facility] Sangita OSMAN LAB MICROBIOLOGY - GENERA L ORDERABLES Final Result Performing Organization Address City/[facility]/ZIP Co de Phone Number [facility] [address] [address] [phone] from Last 3 Months or Most Recently Relevant to Health Maintenance Insurance [facility] UHC MEDICARE ADVANTAGE [facility]ICAL [facility] MEDIC[facility] Address: [address] [address] [place] [address] UHC MEDICARE ADVANTAGE [facility]ICAL [facility] MEDICARE Address: [address] [address] [place] [address] Advance Directives For more information, please contact: [phone] Documents on File Type Date Recorded Patient Assignment Agent Expl anation ADVANCE DIRECTIVE 05/17/2024 2:13 PM Yonis r of Ovens Supervisor-Medical * Full Code (Latest Code Status on File) Date Activated Date Inactivated Comments 05/30/2024 12:38 PM 06/05/2024 6:31 PM * Full Code Date Activated Date Inactivated Comments 05/04/2023 2:33 PM 05/07/2023 3:07 AM * Full Code Date Activated Date Inactivated Comments 03/22/2021 4:39 PM 03/25/2021 6:17 PM Care Teams Medical Territory Manager Relationship Specialty Start Date End Date Alee Elizondo PA [address] [facility] [address] [place] [address] PCP - General Internal Medicine 07/05/23 Sharan Linton MD Referring Physician Gastroenterology 10/31/18 Martha Starks MD Consulting Physician Cardiology 12/24/20 Shama Hines MD [address] [facility], [facility] [address] [place] [address] Consulting Physician Pain Management 01/19/21 Artis Grewal MD [address] [place] [address] Consulting Physician Rheumatology 01/30/21 Amy Mayes NP [address] [place] [address] Nurse Practitioner Cardiovascular Disease 04/20/24 Shailesh Dunn MD [address] [facility] [address] [place] [address] Consulting Physician Pulmonary Disease 04/20/24 Sangita Farrar PA [address] [place] [address] Physician Director Of Special Events Rheumatology 05/15/24
--- OUTSIDE RECORDS SUMMARY | 2024-11-05 18:32 | XMS_ITS | Encounter Summary ---
Author Organization [facility] Facility Care Team Providers Care Brass Wind Instruments Tube Bender Name Role Phone Alee Elizondo Primary Care Provider + [phone] Sharan Linton MD Unavailable [phone] Taisha Gomez MD Unavailable [phone] Parag Soto MD Unavailable [phone] RaziaMartha singh MD Unavailable [phone] Puneet Uribe MD Unavailable [phone] Shama Hines MD Unavailable Artis Grewal MD Unavailable [phone] Harrison Pena RN Unavailable [phone] Nafisa Gregg RN Unavailable Tho Kelsey MD Primary Care Provider [phone] Alee Elizondo Primary Care Provider + [phone] Amy Mayes NP Unavailable [phone] Shailesh Dunn MD Unavailable [phone] Sangita Farrar Unavailable [phone] Encounter Details Date Type Department Care Team (Latest Contact Info) Description 12/31/2015 Orders Only [facility] CLINCONV Provider, MD Tania [address] [place] [address] Social History Tobacco Use Types Packs/Day Years Used Date Smoking Tobacco: Never Alcohol Use Standard Drinks/Week Comments No 0 (1 standard drink = 0.6 oz pur e alcohol) Comments Unknown Sex and Gender Information Value Date Recorded Sex Assigned at Not on file Legal Sex Female 8:04 PM PEBBLE MILL OPERATOR Gender Identity Female 02/15/2020 6:08 PM [...] COVID: Suspected 08/13/2021 08/14/2021 08/14/2021 3:06 AM PEBBLE MILL OPERATOR COVID: Suspected 08/14/2021 08/14/2021 08/15/2021 3:05 AM PEBBLE MILL OPERATOR COVID: Suspected 08/14/2021 08/14/2021 08/15/2021 6:25 AM PEBBLE MILL OPERATOR COVID: Suspected 06/02/2023 06/02/2023 06/02/2023 7:25 PM PEBBLE MILL OPERATOR COVID: Suspected 07/26/2023 07/26/2023 07/26/2023 3:10 PM PEBBLE MILL OPERATOR COVID: Suspected 09/25/2024 09/25/2024 09/25/2024 11:03 AM CDT Influenza, adult 09/25/2024 09/25/2024 10/02/2024 3:05 AM CDT COVID: Suspected 10/23/2024 10/23/2024 10/23/2024 1:15 PM CDT documented as of this encounter Care Teams Br[employer] Tube Bender Relationship Specialty Start Date End Date Alee Elizondo PA [address] [place] [address] PCP - General Internal Medicine 02/01/17 06/29/23 Tho Kelsey MD [address] [place] [address] [address] [facility] [address] [place] [address] PCP - General Family Medicine 06/30/23 07/04/23 Alee Elizondo PA [address] [facility] [address] [place] [address] PCP - General Internal Medicine 07/05/23 Sharan Linton MD [address] [facility] [address] [place] [address] Referring Physician Gastroenterology 10/31/18 Taisha Gomez MD [address] [facility] [address] [place] [address] Referring Physician Pulmonary Disease 10/31/18 12/23/20 Parag Soto MD [address] [facility] [address] [place] [address] Referring Physician Rheumatology 10/31/18 12/23/20 Martha Starks MD [address] [facility] [address] [place] [address] Consulting Physician Cardiology 12/24/20 Puneet Uribe MD [address] [facility] [address] [place] [address] Consulting Physician Rheumatology 12/24/20 01/29/21 Shama Hines MD [address] [facility], [facility] [address] [place] [address] Consulting Physician Pain Management 01/19/21 Artis Grewal MD [address] [place] [address] Consulting Physician Rheumatology 01/30/21 Harrison Pena RN [address] [place] [address] Pawn Shop Keeper 05/30/23 09/04/23 Nafisa Gregg RN [address] [place] [address] [address] [place] [address] Pawn Shop Keeper 06/06/23 06/12/23 Amy Mayes NP [address] [address] Nurse Practitioner Cardiovascular Disease 04/20/24 Shailesh Dunn MD [address] [address] Consulting Physician Pulmonary Disease 04/20/24 Sangita Farrar PA [address] [place] [address] Physician Plant Custodian Rheumatology 05/15/24 documented as of this encounter
--- OUTSIDE RECORDS SUMMARY | 2024-11-05 18:32 | XMS_ITS | Encounter Summary ---
Author Organization [facility] Facility Care Team Providers Care Production Mechanic Name Role Phone Alee Elizondo Primary Care Provider + [phone] Sharan Linton MD Unavailable [phone] Taisha Gomez MD Unavailable [phone] Parag Soto MD Unavailable [phone] RaziaMartha singh MD Unavailable [phone] Puneet Uribe MD Unavailable [phone] Shama Hines MD Unavailable Artis Grewal MD Unavailable [phone] Harrison Pena RN Unavailable [phone] Nafisa Gregg RN Unavailable [phone] Tho Kelsey MD Primary Care Provider [phone] Alee Elizondo Primary Care Provider + [phone] Amy Mayes NP Unavailable [phone] Shailesh Dunn MD Unavailable [phone] Sangita Farrar Unavailable [phone] Encounter Details Date Type Department Care Team (Latest Contact Info) Description 10/15/2016 Orders Only [facility] CLINCONV Provider, MD Tania [address] [place] [address] Social History Tobacco Use Types Packs/Day Years Used Date Smoking Tobacco: Never Alcohol Use Standard Drinks/Week Comments No 0 (1 standard drink = 0.6 oz pur e alcohol) Comments Unknown Sex and Gender Information Value Date Recorded Sex Assigned at Not on file Legal Sex Female 8:04 PM SOFTWARE INTERN Gender Identity Female 02/15/2020 6:08 PM [...] Suspected 08/13/2021 08/14/2021 08/14/2021 3:06 AM SOFTWARE INTERN COVID: Suspected 08/14/2021 08/14/2021 08/15/2021 3:05 AM SOFTWARE INTERN COVID: Suspected 08/14/2021 08/14/2021 08/15/2021 6:25 AM SOFTWARE INTERN COVID: Suspected 06/02/2023 06/02/2023 06/02/2023 7:25 PM SOFTWARE INTERN COVID: Suspected 07/26/2023 07/26/2023 07/26/2023 3:10 PM SOFTWARE INTERN COVID: Suspected 09/25/2024 09/25/2024 09/25/2024 11:03 AM CDT Influenza, adult 09/25/2024 09/25/2024 10/02/2024 3:05 AM CDT COVID: Suspected 10/23/2024 10/23/2024 10/23/2024 1:15 PM CDT documented as of this encounter Care Teams Production Mechanic Relationship Specialty Start Date End Date Alee Elizondo PA [address] [facility] [address] [place] [address] PCP - General Internal Medicine 02/01/17 06/29/23 Tho Kelsey MD [address] [place] [address] [address] [facility] [address] [place] [address] PCP - General Family Medicine 06/30/23 07/04/23 Alee Elizondo PA [address] [facility] [address] [facility] [address] [place] [address] PCP - General Internal Medicine 07/05/23 Sharan Linton MD [address] [facility] [address] [place] [address] Referring Physician Gastroenterology 10/31/18 Taisha Gomez MD [address] [facility] [address] [place] [address] Referring Physician Pulmonary Disease 10/31/18 12/23/20 Parag Soto MD [address] [facility] [address] [place] [address] Referring Physician Rheumatology 10/31/18 12/23/20 Martha Starks MD [address] [facility] [address] [place] [address] Consulting Physician Cardiology 12/24/20 Puneet Uribe MD [address] [facility] [address] [place] [address] Consulting Physician Rheumatology 12/24/20 01/29/21 Shama Hines MD [address] [facility], [facility] [address] [place] [address] Consulting Physician Pain Management 01/19/21 Artis Grewal MD [address] [place] [address] Consulting Physician Rheumatology 01/30/21 Harrison Pena RN [address] [place] [address] Site Medical Director 05/30/23 09/04/23 Nafisa Gregg, JULIUS [address] [place] [address] [address] [place] [address] Site Medical Director 06/06/23 06/12/23 Amy Mayes NP [address] [address] Nurse Practitioner Cardiovascular Disease 04/20/24 Shailesh Dunn MD [address] [address] Consulting Physician Pulmonary Disease 04/20/24 Sangita Farrar PA [address] [place] [address] Physician Histologic Aide Rheumatology 05/15/24 documented as of this encounter
--- OUTSIDE RECORDS SUMMARY | 2024-11-05 18:32 | XMS_ITS | Encounter Summary ---
Author Organization [facility] Healthcare Address [address] [place] [address] Care Team Providers Care Four H Club Agent Name Role Phone Sharan Linton MD Unavailable [phone] Martha Starks MD Unavailable [phone] Shama Hines MD Unavailable Artis Grewal MD Unavailable [phone] Alee Elizondo Primary Care Provider [phone] Amy Mayes NP Unavailable [phone] Shailesh Dunn MD Unavailable [phone] Sangita Farrar Unavailable [phone] Encounter Details Date Type Department Care Team (Late st Contact Info) Description 10/12/2024 Results Follow-Up [facility] Medical Group Family Medicine [address] [email or web address] [place] [address] Alee Elizondo PA [address] [facility] [address] [place] [address] Social History Tobacco Use Types Packs/Day Years Used Date Smoking Tobacco: Never Smokeless Tobacco: Never Comments:Never used Alcohol Use Standard Drinks/Week Comments No 0 (1 standard drink = 0.6 oz pur e alcohol) [facility] Utilities Answer Date Recorded In the past 12 months has [employer], oil, or water [employer] threatened to shut off services in your [...] place to sleep or slept in a usp (including now)? No 05/27/2023 PHQ-9 Answer Date [...] were you homeless or living in a usp (including now)? No 05/30/2024 Personal Safety Answer Date Recorded Have you ever been in or are you currently in a harmful physical or emotional relationship or is someone making you feel afraid or unsafe? Denies 05/30/2024 Comments No Sex and Gender Information Value Date Recorded Sex Assigned at Not on file Legal Sex Female 8:04 PM INTERNET SALESPERSON Gender Identity Female 02/15/2020 6:08 PM CDT [...] documented as of this encounter Care Teams Four H Club Agent Relationship Specialty Start Date End Date Alee Elizondo PA [address] [place] [address] PCP - General Internal Medicine 07/05/23 Sharan Linton MD Referring Physician Gastroenterology 10/31/18 Martha Starks MD Consulting Physician Cardiology 12/24/20 Shama Hines MD [address] [facility] [address] [place] [address] Consulting Physician Pain Management 01/19/21 Artis Grewal MD [address] [place] [address] Consulting Physician Rheumatology 01/30/21 Amy Mayes NP [address] [facility] [address] [place] [address] Nurse Practitioner Cardiovascular Disease 04/20/24 Shailesh Dunn MD [address] [facility] [address] [address] Consulting Physician Pulmonary Disease 04/20/24 Sangita Farrar PA [address] [place] [address] Physician Territory Account Manager Rheumatology 05/15/24 documented as of this encounter
--- OUTSIDE RECORDS SUMMARY | 2024-11-05 18:32 | XMS_ITS | Encounter Summary ---
Author Organization [facility] Facility Care Team Providers Care Commutator Repairer Name Role Phone Alee Elizondo Primary Care Provider + [phone] Sharan Linton MD Unavailable [phone] Taisha Gomez MD Unavailable [phone] Paarg Soto MD Unavailable [phone] RaziaMartha singh MD Unavailable [phone] Puneet Uribe MD Unavailable Shama Hines MD Unavailable Artis Grewal MD Unavailable [phone] Harrison Pena RN Unavailable [phone] Nafisa Gregg RN Unavailable [phone] Tho Kelsey MD Primary Care Provider [phone] Alee Elizondo Primary Care Provider + [phone] Amy Mayes NP Unavailable [phone] Shailesh Dunn MD Unavailable [phone] Sangita Farrar Unavailable +[phone] Encounter Details Date Type Department Care Team (Latest Contact Info) Description 06/28/2016 Orders Only [facility] CLINCONV Provider, MD Tania [address] [place] [address] Social History Tobacco Use Types Packs/Day Years Used Date Smoking Tobacco: Never Alcohol Use Standard Drinks/Week Comments No 0 (1 standard drink = 0.6 oz pur e alcohol) Comments Unknown Sex and Gender Information Value Date Recorded Sex Assigned at Not on file Legal Sex Female 8:04 PM SWATCH MAKER Gender Identity Female 02/15/2020 6:08 PM CDT Sexual Orientation Not on file documented as of this encounter Plan of Treatment Not on file documented as of this encounter Procedures Procedure Name Priority Date/Time Associated Diagnosis Comments SCAN - LABS 06/29/2016 12:00 AM SWATCH MAKER documented in this encounter Results * SCAN - LABS (06/29/2016 12:00 AM SWATCH MAKER) Narrative 06/29/2016 12:00 AM SWATCH MAKER Ordered by an unspecified provider. Historical Provider MD Final Res ult documented in this encounter Visit Diagnoses Not on filedocumented in this encounter Additional Health Concerns Infection Onset Date Last Indicated Resolved Time COVID: Suspected 08/13/2021 08/14/2021 08/14/2021 3:06 AM SWATCH MAKER COVID: Suspected 08/14/2021 08/14/2021 08/15/2021 3:05 AM SWATCH MAKER COVID: Suspected 08/14/2021 08/14/2021 08/15/2021 6:25 AM SWATCH MAKER COVID: Suspected 06/02/2023 06/02/2023 06/02/2023 7:25 PM SWATCH MAKER COVID: Suspected 07/26/2023 07/26/2023 07/26/2023 3:10 PM SWATCH MAKER COVID: Suspected 09/25/2024 09/25/2024 09/25/2024 11:03 AM CDT Influenza, adult 09/25/2024 09/25/2024 10/02/2024 3:05 AM CDT COVID: Suspected 10/23/2024 10/23/2024 10/23/2024 1:15 PM CDT documented as of this encounter Care Teams Commutator Repairer Relationship Specialty Start Date End Date Alee Elizondo PA [address] [facility] [address] [place] [address] PCP - General Internal Medicine 02/01/17 06/29/23 Tho Kelsey MD [address] [place] [address] [address] [facility] [address] [place] [address] PCP - General Family Medicine 06/30/23 07/04/23 Alee Elizondo PA [address] [facility] [address] [place] [address] PCP - General Internal Medicine 07/05/23 Sharan Linton MD [address] [facility] [address] [place] [address] Referring Physician Gastroenterology 10/31/18 Taisha Gomez MD [address] [facility] [address] [place] [address] Referring Physician Pulmonary Disease 10/31/18 12/23/20 Parag Soto MD [address] [facility] [address] [place] [address] Referring Physician Rheumatology 10/31/18 12/23/20 Martha Starks MD [address] [facility] [address] [place] [address] Consulting Physician Cardiology 12/24/20 Puneet Uribe MD [address] [facility] [address] [place] [address] Consulting Physician Rheumatology 12/24/20 01/29/21 Shama Hines MD [address] [facility], [facility] [address] [place] [address] Consulting Physician Pain Management 01/19/21 Artis Grewal MD [address] [place] [address] Consulting Physician Rheumatology 01/30/21 Harrison Pena, JULIUS [address] [place] [address] Forensic Accountant 05/30/23 09/04/23 Nafisa Gregg, JULIUS [address] [place] [address] [facility] [address] [place] [address] Forensic Accountant 06/06/23 06/12/23 Amy Mayes NP [address] [facility] [address] [place] [address] Nurse Practitioner Cardiovascular Disease 04/20/24 Shailesh Dunn MD [address] [facility] [address] [place] [address] Consulting Physician Pulmonary Disease 04/20/24 Sangita Farrar PA [address] [place] [address] Physician Cold Mill Operator Rheumatology 05/15/24 documented as of this encounter
--- OUTSIDE RECORDS SUMMARY | 2024-11-05 18:32 | XMS_ITS | Encounter Summary ---
Author Organization [facility] Facility Care Team Providers Care Presser First Name Role Phone Alee Elizondo Primary Care Provider + [phone] Sharan Linton MD Unavailable [phone] Taisha Gomez MD Unavailable [phone] Parag Soto MD Unavailable [phone] RaziaMartha singh MD Unavailable [phone] Puneet Uribe MD Unavailable [phone] Shama Hines MD Unavailable Artis Grewal MD Unavailable [phone] Harrison Pena RN Unavailable [phone] Nafisa Gregg RN Unavailable Tho Kelsey MD Primary Care Provider [phone] Alee Elizondo Primary Care Provider + [phone] Amy Mayes NP Unavailable [phone] Shailesh Dunn MD Unavailable [phone] Sangita Farrar Unavailable [phone] Encounter Details Date Type Department Care Team (Latest Contact Info) Description 04/19/2016 Orders Only [facility] CLINCONV Provider, MD Tania [address] [place] [address] Social History Tobacco Use Types Packs/Day Years Used Date Smoking Tobacco: Never Alcohol Use Standard Drinks/Week Comments No 0 (1 standard drink = 0.6 oz pur e alcohol) Comments Unknown Sex and Gender Information Value Date Recorded Sex Assigned at Not on file Legal Sex Female 8:04 PM FIRST COAT SANDER Gender Identity Female 02/15/2020 6:08 PM CDT [...] Suspected 08/13/2021 08/14/2021 08/14/2021 3:06 AM FIRST COAT SANDER COVID: Suspected 08/14/2021 08/14/2021 08/15/2021 3:05 AM FIRST COAT SANDER COVID: Suspected 08/14/2021 08/14/2021 08/15/2021 6:25 AM FIRST COAT SANDER COVID: Suspected 06/02/2023 06/02/2023 06/02/2023 7:25 PM FIRST COAT SANDER COVID: Suspected 07/26/2023 07/26/2023 07/26/2023 3:10 PM FIRST COAT SANDER COVID: Suspected 09/25/2024 09/25/2024 09/25/2024 11:03 AM CDT Influenza, adult 09/25/2024 09/25/2024 10/02/2024 3:05 AM CDT COVID: Suspected 10/23/2024 10/23/2024 10/23/2024 1:15 PM CDT documented as of this encounter Care Teams Presser First Relationship Specialty Start Date End Date Alee Elizondo PA [address] [facility] 500 [place] [address] PCP - General Internal Medicine 02/01/17 06/29/23 Tho Kelsey MD [address] [place] [address] [address] [facility] [address] [place] [address] PCP - General Family Medicine 06/30/23 07/04/23 Alee Elizondo PA [address] [facility] [address] [facility] [address] [place] [address] PCP - General Internal Medicine 07/05/23 Sharan Linton MD [address] [facility] 500 [place] [address] Referring Physician Gastroenterology 10/31/18 Taisha Gomez MD [address] [facility] [address] [place] [address] Referring Physician Pulmonary Disease 10/31/18 12/23/20 Parag Soto MD [address] [facility] 500 [place] [address] Referring Physician Rheumatology 10/31/18 12/23/20 Martha Starks MD [address] [facility] [address] [place] [address] Consulting Physician Cardiology 12/24/20 Puneet Uribe MD [address] [facility] [address] [place] [address] Consulting Physician Rheumatology 12/24/20 01/29/21 Shama Hines MD [address] [facility], [facility] [address] [place] [address] Consulting Physician Pain Management 01/19/21 Artis Grewal MD [address] [place] [address] Consulting Physician Rheumatology 01/30/21 Harrison Pena RN [address] [place] [address] Unit Director 05/30/23 09/04/23 Nafisa Gregg, JULIUS [address] [place] [address] [address] [place] [address] Unit Director 06/06/23 06/12/23 Amy Mayes NP [address] [address] Nurse Practitioner Cardiovascular Disease 04/20/24 Shailesh Dunn MD [address] [address] Consulting Physician Pulmonary Disease 04/20/24 Sangita Farrar PA [address] [place] [address] Physician Lining Repairer Rheumatology 05/15/24 documented as of this encounter
--- OUTSIDE RECORDS SUMMARY | 2024-11-05 18:32 | XMS_ITS | Encounter Summary ---
Author Organization [facility] Healthcare Address [address] [place] [address] Care Team Providers Care Brim Plater Name Role Phone Sharan Linton MD Unavailable [phone] Martha Starks MD Unavailable [phone] Shama Hines MD Unavailable Artis Grewal MD Unavailable Alee Elizondo Primary Care Provider [phone] Amy Mayes NP Unavailable [phone] Shailesh Dunn MD Unavailable [phone] Sangita Farrar Unavailable [phone] Encounter Details Date Type Department Care Team (Late st Contact Info) Description 03/02/2024 Telephone [facility] Family Medicine [address] [address] [place] [address] Alee Elizondo PA [address] [facility] [address] [place] [address] Social History Tobacco Use Types Packs/Day Years Used Date Smoking Tobacco: Never Smokeless Tobacco: Never Comments:Never used Alcohol Use Standard Drinks/Week Comments No 0 (1 standard drink = 0.6 oz pur e alcohol) [facility] Utilities Answer Date Recorded In the past 12 months has [employer], gas, oil, or water company threatened to [...] you attend chur ch or presybeterian services? 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 Gender Identity Female 02/15/2020 6:08 PM [...] documented as of this encounter Care Teams Brim Plater Relationship Specialty Start Date End Date Alee Elizondo PA [address] [place] [address] PCP - General Internal Medicine 07/05/23 Sharan Linton MD Referring Physician Gastroenterology 10/31/18 Martha Starks MD Consulting Physician Cardiology 12/24/20 Shama Hines MD [address] [facility] [address] [place] [address] Consulting Physician Pain Management 01/19/21 Artis Grewal MD [address] [place] [address] Consulting Physician Rheumatology 01/30/21 Amy Mayes NP [address] [address] Nurse Practitioner Cardiovascular Disease 04/20/24 Shailesh Dunn MD [address] [facility] [address] [address] Consulting Physician Pulmonary Disease 04/20/24 Sangita Farrar PA [address] [place] [address] Physician Net Lead Architect Rheumatology 05/15/24 documented as of this encounter
--- OUTSIDE RECORDS SUMMARY | 2024-11-05 18:32 | XMS_ITS | Referral Summary ---
Author Organization [facility] [address] Address [address] [place] [address] Care Team Providers Care Fingerer Name Role Phone Sharan Linton MD Unavailable [phone] Martha Starks MD Unavailable [phone] Shama Hines MD Unavailable Artis Grewal MD Unavailable [phone] Alee Elizondo Primary Care Provider [phone] Amy Mayes NP Unavailable [phone] Shailesh Dunn MD Unavailable [phone] Sangita Farrar Unavailable [phone] Encounters Date Type Department Care Team Description 10/23/2024 1:00 PM CDT Office Visit [address] [place] [address] Alee Elizondo PA Acute non-recurrent sinusitis, unspecified location (Primary Dx); Acute cough; BMI 34.0-34.9,adult; Morbid obesity (HCC) 10/19/2024 Orders Only [address] [place] [address] Provider, MD Tania 10/12/2024 Results Follow-Up [address] [place] [address] Alee Elizondo PA 10/10/[address] [place] [address] Alee Elizondo PA Medication Request 10/10/2024 7:30 AM CDT Office Visit [address] [place] [address] Alee Elizondo PA Annual physical exam (Primary Dx); 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); Age-related osteoporosis without current pathological fracture; OWEN on CPAP; Moderate episode of recurrent major depressive disorder (HCC); Mixed hyperlipidemia; Pre-diabetes; Gastroesophageal reflux disease without esophagitis; Pelvic lipomatosis; BMI 35.0-35.9,adult; Morbid obesity (HCC) 10/07/2024 Orders Only [facility] Health Information Management [address] [place] [address] Alee Elizondo PA 10/04/2024 Results Follow-Up [address] [place] [phone] Alee Elizondo PA 10/04/2024 Orders Only [address] [place] [address] Tania Michael MD 10/03/[address] [place] [address] Alee Elizondo PA 09/26/2024 Orders Only [address] [place] [address] Alee Elizondo PA Breast cancer screening by mammogram (Primary Dx) 09/25/2024 Results Follow-Up [address] [place] [address] Alee Elizondo PA 09/25/2024 11:00 AM CDT Office Visit [facility] [place] [id number] [place] [address] Jessica Collins NP Influenza A (Primary Dx); Acute cough 09/20/2024 Telephone [facility] [address] [facility] [address] [place] [address] Michael Motta MD med clarification 09/20/2024 8:00 AM CDT Office Visit [facility] Cardiology [address] [facility] [address] [place] [address] Devika Marin MD Venous insufficiency (chronic) (peripheral) (Primary Dx); Mixed hyperlipidemia 09/14/[address] [address] Codi Branham 09/13/2024 1:44 PM CDT - 09/13/2024 11:59 PM CDT Hospital Encounter [facility] [address] [place] [address] Chronic pain of right knee Discharge Disposition: Discharge to home or self care 09/13/2024 2:45 PM CDT Office Visit [facility]ics [facility] Sports Medicine [facility] [facility] [address] [place] [address] Michael Motta MD Chronic pain of right knee (Primary Dx); History of total knee arthroplasty, right 09/04/2024 Results Follow-Up [facility] Medicine [address] [place] [address] [address] [place] [address] Alee Elizondo PA 08/31/2024 Telephone [facility] Medicine [address] [place] [address] [address] [place] [address] Alee Elizondo PA Medical Question/Miscellaneou s 08/31/2024 Orders Only [facility] Medicine [address] [place] [address] [address] [place] [address] Provider, Historical, MD 08/29/2024 Nurse Triage [facility] Medical [facility] Family Medicine [address] [facility] [address] [place] [address] Alee Elizondo PA 08/29/2024 Telephone [facility] Medical Group Pulmonary [place] [address] [facility] [address] [place] [address] Shailesh Dunn MD Med Refill (Ropinirol HCL 0.5MG tab) 08/24/2024 Results Follow-Up [address] [address] Sangita Farrar PA 08/23/2024 Orders Only [facility] Health Information Management [address] [place] [id number] Alee Elizondo PA 08/23/[address] [address] Sangita Farrar PA Orencia Approved 08/23/2024 11:30 AM INSTRUMENT FITTER Office Visit [address] [address] Sangita Farrar PA 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) (Primary Dx); Primary osteoarthritis involving multiple joints; Encounter for medication monitoring 08/21/[address] [address] Codi Branham from Last 3 [...] She has had evaluation by Urology at [facility] and has been told there is [...] prescribed. Assessment & Plan (08/07/2023 7:55 PM INSTRUMENT FITTER): Persistent sinusitis symptoms along with cough. Will [...] provided. Assessment & Plan (05/07/2024 8:56 PM INSTRUMENT FITTER): Discussed the patient's BMI. The BMI is [...] provided. Assessment & Plan (09/06/2023 9:38 AM INSTRUMENT FITTER): Discussed the patient's BMI. The BMI is above average. BMI management plan is completed. BMI Follow-up includes: nutrition counseling, exercise counseling and education provided. Patient has an obesity-related condition (not limited to: hypertension, obstructive sleep apnea, osteoarthritis, hyperlipidemia, diabetes, etc.). Therefore, morbid obesity may be documented for patients with a BMI between 35.00-39.99. Assessment & Plan (08/07/2023 7:51 PM INSTRUMENT FITTER): Discussed the patient's BMI. The BMI is above average. BMI management plan is completed. BMI Follow-up includes: nutrition counseling, exercise counseling and education provided. Patient has an obesity-related condition (not limited to: hypertension, obstructive sleep apnea, osteoarthritis, hyperlipidemia, diabetes, etc.). Therefore, morbid obesity may be documented for patients with a BMI between 35.00-39.99. Assessment & Plan (08/03/2023 7:45 AM INSTRUMENT FITTER): Discussed the patient's BMI. The BMI is above average. BMI management plan is completed. BMI Follow-up includes: nutrition counseling, exercise counseling and education provided. Primary osteoarthritis of right knee 07/08/2023 Assessment & Plan (05/07/2024 8:56 PM INSTRUMENT FITTER): Patient has arthritis in the right knee. Planning a total knee replacement with Dr. Alexus Motta on May 30 Assessment & Plan (08/03/2023 8:28 AM INSTRUMENT FITTER): Continue per ortho. She is seeing some improvement but it is difficult to know if the knee is rheumatoid versus osteo versus other etiology. Will await recommendations from JACQUI Raya but definitely encouraged her to become active as soon as possible. Status post total knee replacement using cement, right 05/19/2023 Assessment & Plan (06/02/2023 4:56 PM INSTRUMENT FITTER): Status post total knee replacement with Dr. Ge Sexton 04 May. She has just been released from rehab following up for her TCM visit. She appears to have an area of cellulitis at the incision site. She is also complaining of increased pain. Will check CBC CMP and inflammatory markers along with an x-ray. She plans to go to [facility] for the workup. Will follow up [...] provided. Assessment & Plan (06/02/2023 8:27 AM INSTRUMENT FITTER): Discussed the patients BMI: The BMI is [...] 12/20/2022 Assessment & Plan (05/07/2024 8:55 PM INSTRUMENT FITTER): Patient is on medication for her rheumatoid arthritis managed by [facility] Assessment & Plan (01/22/2024 8:13 PM CDT): Medications from [facility] contribute to her immunosuppressive state. Assessment & Plan (09/06/2023 9:41 AM INSTRUMENT FITTER): Medications are managed by [facility] for her rheumatoid arthritis Assessment & Plan (04/06/2023 7:44 PM CDT): Managed by [facility]. Currently on Plaquenil methotrexate Orencia [...] She has had evaluation by Urology at [facility] and has been told there is [...] capacity. Assessment & Plan (09/06/2023 9:41 AM INSTRUMENT FITTER): Continue per . She did not tolerate [...] Pate. Assessment & Plan (07/18/2022 10:20 AM INSTRUMENT FITTER): CT revealed pelvic lipomatosis that is compressing [...] 02/11/2022 Assessment & Plan (09/06/2023 9:41 AM INSTRUMENT FITTER): No change. Dysfunction of both eustachian tubes 02/11/2022 Myalgia, lower leg 01/11/2022 PLMD (periodic limb movement disorder) Assessment & Plan (08/02/2024 11:49 AM INSTRUMENT FITTER): Asymptomatic Assessment & Plan (06/22/2022 10:31 AM INSTRUMENT FITTER): Will continue Requip 1 mg nightly Assessment [...] bedtime. Assessment & Plan (07/13/2021 11:25 AM INSTRUMENT FITTER): Due to the patient stating that she [...] 06/04/2020 Assessment & Plan (08/23/2024 10:16 AM INSTRUMENT FITTER): Hepatitis negative 06/2020 Tspot negative 06/2020 Continue routine lab monitoring Maintain routine eye exams throughout the duration of taking hydroxychloroquine Assessment & Plan (07/30/2024 8:24 AM INSTRUMENT FITTER): Hepatitis negative 06/2020 Tspot negative 06/2020 Continue [...] hydroxychloroquine Assessment & Plan (09/01/2023 8:34 AM INSTRUMENT FITTER): Hepatitis negative 06/2020 Tspot negative 06/2020 Continue routine lab monitoring Maintain routine eye exams throughout the duration of taking hydroxychloroquine Assessment & Plan (06/29/2023 2:19 PM INSTRUMENT FITTER): Hepatitis negative 06/2020 Tspot negative 06/2020 Continue [...] hydroxychloroquine Assessment & Plan (07/14/2022 2:58 PM INSTRUMENT FITTER): Hepatitis negative 06/2020 Tspot negative 06/2020 Continue routine lab monitoring Maintain routine eye exams throughout the duration of taking hydroxychloroquine Assessment & Plan (06/03/2022 9:58 AM INSTRUMENT FITTER): Hepatitis negative 06/2020 Tspot negative 06/2020 Continue [...] hydroxychloroquine Assessment & Plan (09/03/2021 8:29 AM INSTRUMENT FITTER): Hepatitis negative 06/2020 Tspot negative 06/2020 Continue routine lab monitoring Maintain routine eye exams throughout the duration of taking hydroxychloroquine Assessment & Plan (06/03/2021 4:17 PM INSTRUMENT FITTER): Hepatitis negative 06/2020 Tspot negative 06/2020 Continue [...] hydroxychloroquine Assessment & Plan (09/02/2020 1:16 PM INSTRUMENT FITTER): Hepatitis negative 06/2020 Tspot negative 06/2020 Continue routine lab monitoring Maintain routine eye exams throughout the duration of taking hydroxychloroquine Assessment & Plan (07/09/2020 12:23 PM INSTRUMENT FITTER): Hepatitis negative 06/2020 Tspot negative 06/2020 Continue [...] 08/13/2019 Assessment & Plan (05/07/2024 8:54 PM INSTRUMENT FITTER): Patient with chronic constipation. Has been on [...] linzess Assessment & Plan (08/13/2019 8:57 AM INSTRUMENT FITTER): On Movant[employer] with Dr. Soto Herpes zoster [...] diabetes. Assessment & Plan (05/07/2024 8:55 PM INSTRUMENT FITTER): Pre-diabetes/hyperglycemia is a precursor to Dm. Stressed [...] diabetes. Assessment & Plan (09/06/2023 9:40 AM INSTRUMENT FITTER): Pre-diabetes/hyperglycemia is a precursor to Dm. Stressed [...] diabetes. Assessment & Plan (09/11/2021 11:22 PM INSTRUMENT FITTER): Pre-diabetes/hyperglycemia is a precursor to Dm. Stressed importance of working on diet (decrease your simple sugars and one carbohydrate with each meal) and increase you exercise to achieve weight loss and this will help prevent you from progressing to diabetes. Assessment & Plan (05/29/2021 8:18 PM INSTRUMENT FITTER): Pre-diabetes/hyperglycemia is a precursor to Dm. Stressed [...] diabetes. Assessment & Plan (08/31/2020 9:34 AM INSTRUMENT FITTER): Pre-diabetes is a precursor to Dm. Stressed [...] diabetes. Assessment & Plan (08/13/2019 9:00 AM INSTRUMENT FITTER): This is a significant, separately identifiable problem [...] b.I.d. Assessment & Plan (05/07/2024 8:54 PM INSTRUMENT FITTER): Depression symptoms are stable with Wellbutrin XL 150 Cymbalta 60 b.i.d. Assessment & Plan (04/21/2024 8:50 PM CDT): Depression symptoms are stable with the Wellbutrin XL 150 and Cymbalta 60 b.i.d. Assessment & Plan (01/22/2024 8:11 PM CDT): Depression symptoms are stable with Wellbutrin and Cymbalta Assessment & Plan (09/06/2023 9:40 AM INSTRUMENT FITTER): Depression is stable with Wellbutrin and Cymbalta Assessment & Plan (08/03/2023 8:31 AM INSTRUMENT FITTER): Stable with Cymbalta 60 and Wellbutrin XL [...] Cymbalta Assessment & Plan (09/11/2021 11:26 PM INSTRUMENT FITTER): Continue Wellbutrin and Cymbalta Assessment & Plan (05/29/2021 8:22 PM INSTRUMENT FITTER): Continue Wellbutrin and Cymbalta Assessment & Plan (05/24/2021 10:39 AM INSTRUMENT FITTER): Continue Wellbutrin and Cymbalta Assessment & Plan (12/24/2020 9:07 AM CDT): Continue wellbutrin and cymbalta Assessment & Plan (08/31/2020 9:35 AM INSTRUMENT FITTER): Continue wellbutrin and cymbalta Assessment & Plan (02/18/2020 9:47 PM CDT): Stable with the Cymbalata Assessment & Plan (08/13/2019 8:59 AM INSTRUMENT FITTER): Stable with Cymbalta and Wellbutrin Assessment & [...] regimen. Med list updated to reflect the [id number] one daily and Prozac 40mg. Mixed hyperlipidemia 03/29/2018 Assessment & Plan (10/22/2024 1:06 PM CDT): Encouraged patient to follow low fat/low chol diet like the Mediterranean diet. Increase good fats in the diet. Increase exercise. Monitor labs as needed. Continue Crestor 10 Assessment & Plan (05/07/2024 8:54 PM INSTRUMENT FITTER): Encouraged patient to follow low fat/low chol [...] statin Assessment & Plan (09/06/2023 9:42 AM INSTRUMENT FITTER): Encouraged patient to follow low fat/low chol [...] statin Assessment & Plan (09/11/2021 11:26 PM INSTRUMENT FITTER): Encouraged patient to follow low fat/low chol diet like the Mediterranean diet. Increase good fats in the diet. Increase exercise. Monitor labs as needed. Continue statin Assessment & Plan (05/29/2021 8:22 PM INSTRUMENT FITTER): Encouraged patient to follow fat/low chol diet like the Mediterranean diet. Increase good fats in the diet. Increase exercise. Monitor labs as needed. Continue statin Assessment & Plan (05/24/2021 10:39 AM INSTRUMENT FITTER): Encouraged patient to follow fat/low chol diet like the Mediterranean diet. Increase good fats in the diet. Increase exercise. Monitor labs as needed. Continue statin Assessment & Plan (12/24/2020 9:07 AM CDT): Encouraged patient to follow fat/low chol diet like the Mediterranean diet. Increase good fats in the diet. Increase exercise. Monitor labs as needed. Continue statin Assessment & Plan (08/31/2020 9:34 AM INSTRUMENT FITTER): Encouraged patient to follow fat/low chol diet like the Mediterranean diet. Increase good fats in the diet. Increase exercise. Monitor labs as needed. Continue statin Assessment & Plan (02/18/2020 9:46 PM CDT): Encouraged patient to continue low fat/low chol diet. Continue exercise. Increase good fats in the diet. Monitor labs as needed. Assessment & Plan (08/13/2019 8:59 AM INSTRUMENT FITTER): Encouraged patient to continue low fat/low chol [...] future Assessment & Plan (09/06/2023 9:40 AM INSTRUMENT FITTER): Continue PPI Assessment & Plan (04/06/2023 7:36 PM CDT): Continue PPI p.r.n. Assessment & Plan (01/20/2023 8:13 PM CDT): Continue PPI Assessment & Plan (09/12/2022 6:13 PM CDT): Continue PPI p.r.n. Assessment & Plan (06/03/2022 3:40 PM INSTRUMENT FITTER): Pyrosis poorly controlled on Nexium. Pt has [...] PPI Assessment & Plan (09/11/2021 11:26 PM INSTRUMENT FITTER): Continue PPI Assessment & Plan (12/24/2020 9:05 AM CDT): Continue PPI Assessment & Plan (02/18/2020 9:45 PM CDT): Continue PPI. Saw Dr. Linton for increased GERD sxs. If persist, encouraged to followup again with Dr. Linton. Assessment & Plan (08/13/2019 8:58 AM INSTRUMENT FITTER): Stable with PPI Assessment & Plan (04/29/2019 [...] exertion) Assessment & Plan (06/22/2022 10:30 AM INSTRUMENT FITTER): Patient is not currently using inhalers. She [...] CPAP Assessment & Plan (08/02/2024 11:49 AM INSTRUMENT FITTER): Due to the patient stating the pressure [...] patient Assessment & Plan (05/07/2024 8:55 PM INSTRUMENT FITTER): Continue with CPAP. Assessment & Plan (04/21/2024 8:49 PM CDT): Continue per Dr. Dunn. Has all her needed supplies for CPAP which she is using every night. Continue with Requip 0.5 mg HS for restless leg Assessment & Plan (01/22/2024 8:08 PM CDT): Continue CPAP per Dr. Dunn Assessment & Plan (09/06/2023 9:40 AM INSTRUMENT FITTER): Continue CPAP Assessment & Plan (06/21/2023 10:14 AM INSTRUMENT FITTER): Patient continue to wear her CPAP at [...] CPAP Assessment & Plan (06/22/2022 10:31 AM INSTRUMENT FITTER): Will continue CPAP therapy at an auto titrating range of 7-20 cm water pressure. Denied need for supplies. DME [facility] Assessment & Plan (05/02/2022 [...] pressure. Patient denied need for supplies. DME [facility]. Patient is benefitting CPAP Assessment & Plan (09/11/2021 11:22 PM INSTRUMENT FITTER): Continue CPAP. Patient has all needed supplies. Assessment & Plan (07/13/2021 11:27 AM INSTRUMENT FITTER): Due to the patient stating she does not have enough pressure in her machine, I have increased the pressure to 13 cm water pressure. The patient denied need for for supplies. DME company [facility]. Have also ordered a new smart card set at 13 cm water pressure. Benefitting from CPAP therapy Assessment & Plan (05/29/2021 8:14 PM INSTRUMENT FITTER): Continue CPAP. Assessment & Plan (02/17/2021 11:09 [...] CPAP. Would like to see Pulm[facility]sleep at [facility] as difficulty getting in consistently at [place] and most of her care is now [facility] Assessment & Plan (02/18/2020 9:44 PM CDT): Continue CPAP Assessment & Plan (08/13/2019 8:46 AM INSTRUMENT FITTER): Using the CPAP. Has equipment as needed. [...] Plan (10/22/2024 1:04 PM CDT): Continue per [facility]. Continue Plaquenil methotrexate Orencia folic acid Mobic gabapentin. Assessment & Plan (08/23/2024 12:54 PM INSTRUMENT FITTER): Moderate cdai with report of increasing pain, [...] needed. Assessment & Plan (07/30/2024 11:22 AM INSTRUMENT FITTER): Moderate cdai with report of increased morning [...] with labs near her home ([facility] in [place]), but the following month will need to plan for an in person visit. She expressed understanding and agreement with this plan. Continue methotrexate 20 mg weekly, folic acid 2 mg daily, and hydroxychloroquine 200 mg BID. Labs today as below. Assessment & Plan (05/07/2024 8:55 PM INSTRUMENT FITTER): Managed by [facility]. Currently on Plaquenil and methotrexate and Orencia folic acid Mobic and gabapentin. 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 Assessment & Plan (04/21/2024 8:49 PM CDT): Continue per [facility]. They currently manage her rheumatoid arthritis [...] Plan (01/22/2024 8:17 PM CDT): Continue per [facility] as they manage her condition. Assessment & Plan (11/24/2023 9:58 AM CDT): Low cdai without inflammatory sounding pain. Will continue methotrexate 20 mg weekly, folic acid 2 mg daily, hydroxychloroquine 200 mg BID, and Orencia and monitor. Labs today as below. Follow up in 3 months or sooner as needed. Assessment & Plan (09/06/2023 9:42 AM INSTRUMENT FITTER): Rheumatoid arthritis is managed by [facility]. Currently on Plaquenil methotrexate Orencia and folic acid Assessment & Plan (09/01/2023 3:39 PM INSTRUMENT FITTER): Overall stable without notable synovitis and no inflammatory sounding pain. Will continue methotrexate 20 mg weekly, folic acid 2 mg daily, hydroxychloroquine 200 mg BID, and Orencia and monitor. Labs today as below. Follow up in 3 months or sooner as needed. Assessment & Plan (08/03/2023 8:28 AM INSTRUMENT FITTER): Continue with rheumatology. Assessment & Plan (06/30/2023 12:43 PM INSTRUMENT FITTER): Overall stable without notable synovitis and no inflammatory sounding pain. Will continue methotrexate 20 mg weekly, folic acid 2 mg daily, hydroxychloroquine 200 mg BID, and Orencia and monitor. Labs today as below. Assessment & Plan (06/02/2023 4:49 PM INSTRUMENT FITTER): Continue per Rheumatology Assessment & Plan (04/06/2023 7:35 PM CDT): Continue per Rheumatology. She has been in discussion with them on what medications to stop prior to her knee surgery. She states she was told to take all of her medicines accept the Orencia. Assessment & Plan (01/20/2023 8:12 PM CDT): Continue per Rheumatology [facility] Assessment & Plan (01/13/2023 3:42 [...] Plan (09/12/2022 6:06 PM CDT): Continue with [facility] Assessment & Plan (07/15/2022 1:41 PM INSTRUMENT FITTER): Low cdai. Significantly improved after IM triamcinolone [...] needed. Assessment & Plan (06/03/2022 3:37 PM INSTRUMENT FITTER): High cdai. Previously felt well controlled with current regimen. Due to burden of disease will give patient a triamcinolone injection. Patient made aware of SE of steroids including but not limited to HTN, increased blood glucose, cataracts, glaucoma, AVN, and osteoporosis with chcf use. Should she flare again shortly after [...] (01/23/2022 4:57 PM CDT): Continue management per [facility] Assessment & Plan (12/07/2021 9:02 AM CDT): Low cdai. Denies inflammatory sounding joint pain. Continue methotrexate 25 mg weekly, folic acid to 2 mg daily, Rinvoq 15 mg daily, hydroxychloroquine 200 mg BID, and cyclobenzaprine 5 mg qhs and monitor. Labs today as below. Plan for follow up in 3 months or sooner as needed. Assessment & Plan (09/11/2021 11:14 PM INSTRUMENT FITTER): Continue per [facility] Assessment & Plan (09/03/2021 11:25 AM INSTRUMENT FITTER): cdai = 12. Pt suspects increased joint [...] needed. Assessment & Plan (06/04/2021 10:25 AM INSTRUMENT FITTER): Low cdai. Denies inflammatory sounding pain at present. Will plan to continue methotrexate 25 mg weekly, folic acid to 2 mg daily, Rinvoq 15 mg daily, hydroxychloroquine 200 mg BID, and cyclobenzaprine 5 mg qhs and monitor. Labs today as below. Plan for follow up in 3 months or sooner as needed. Assessment & Plan (05/31/2021 9:15 PM INSTRUMENT FITTER): Continue per Rheumatology Assessment & Plan (05/29/2021 8:13 PM INSTRUMENT FITTER): Continue per Rheumatology. Currently on Plaquenil methotrexate and folic acid. Assessment & Plan (05/24/2021 10:38 AM INSTRUMENT FITTER): Continue per Rheumatology Assessment & Plan (03/05/2021 [...] needed. Assessment & Plan (09/03/2020 12:22 PM INSTRUMENT FITTER): Low cdai. Continues to feel improved with [...] needed. Assessment & Plan (08/31/2020 9:34 AM INSTRUMENT FITTER): Continue per [facility] Assessment & Plan (07/09/2020 12:22 PM INSTRUMENT FITTER): 64yoF with a h/o seropositive RA diagnosed [...] time. Assessment & Plan (06/04/2020 11:14 AM INSTRUMENT FITTER): 64yoF with a h/o seropositive RA diagnosed [...] needed. Assessment & Plan (05/14/2020 9:33 PM INSTRUMENT FITTER): Refer to new [facility] as Dr. Soto has . Assessment & Plan (02/18/2020 9:46 PM CDT): Continue per Rheum Assessment & Plan (08/13/2019 8:59 AM INSTRUMENT FITTER): Continue per Dr. Soto Assessment & Plan [...] recommendations from the bone metabolism group at [facility] Dr. Martinez. Appointment is scheduled in November. Has been on Reclast and Forteo. She also continues with vitamin-D Assessment & Plan (01/22/2024 8:08 PM CDT): Patient with osteoporosis. Has not been responding to Reclast. Forteo was tried by [facility] and she could not tolerate. Has [...] of her osteoporosis, recommended evaluation by the [facility], unfortunately their first available appt was in November 2024. Recommended today that she check with [facility] (at [facility]) to see how far out they are scheduling new patients, though she does not like this option due to distance from her house. Assessment & Plan (09/06/2023 9:40 AM INSTRUMENT FITTER): Managed by [facility]. Per patient they are making a referral to bone metabolism at [facility] she has not seen significant improvement with the Forteo or the Reclast. Assessment & Plan (09/01/2023 3:43 PM INSTRUMENT FITTER): DEXA: Lspine BMD 0.809 Tscore -2.2, L [...] of her osteoporosis, recommend evaluation by the [facility], provided contact info for Dr. Castillo. Pt in agreement with plan. Assessment & Plan (06/30/2023 12:49 PM INSTRUMENT FITTER): DEXA: Lspine BMD 0.809 Tscore -2.2, L [...] PM CDT): Continue to monitor. Managed by [facility]. Patient is on Reclast calcium vitamin-D [...] exercise Assessment & Plan (07/15/2022 1:42 PM INSTRUMENT FITTER): 01/27/2021 DEXA: Lspine -1.8, L femoral neck -1.9, L total hip -1.2, R femoral neck -2.3, R total hip -1.0, FRAX major 32% and hip 7%. Received Reclast 07/2021. Continue yearly Reclast, scheduled for 07/22 Assessment & Plan (06/03/2022 3:38 PM INSTRUMENT FITTER): 01/27/2021 DEXA: Lspine -1.8, L femoral neck [...] Plan (01/23/2022 5:02 PM CDT): Managed by [facility] currently on Reclast calcium and vitamin-D Assessment & Plan (12/07/2021 9:04 AM CDT): 01/27/2021 DEXA: Lspine -1.8, L femoral neck -1.9, L total hip -1.2, R femoral neck -2.3, R total hip -1.0, FRAX major 32% and hip 7%. Received Reclast 07/2021. Continue yearly Reclast. Assessment & Plan (09/03/2021 11:26 AM INSTRUMENT FITTER): 01/27/2021 DEXA: Lspine -1.8, L femoral neck -1.9, L total hip -1.2, R femoral neck -2.3, R total hip -1.0, FRAX major 32% and hip 7%. Received Reclast 07/2021. Continue yearly reclast and daily vitamin D-calcium supplement. Assessment & Plan (06/04/2021 10:27 AM INSTRUMENT FITTER): 01/27/2021 DEXA: Lspine -1.8, L femoral neck [...] order provided today, she will schedule at [facility] Assessment & Plan (12/24/2020 9:06 AM CDT): Continue Reclast thru Rheum Continue calcium, vitD and exercise Assessment & Plan (12/03/2020 10:45 AM CDT): Vitamin D level was 68. Received Reclast 07/09/2020. Last DEXA per available records was 01/31/2019, due this summer - order provided today, she will schedule at [facility] Assessment & Plan (09/03/2020 12:23 PM INSTRUMENT FITTER): Vitamin D level was 68. Received Reclast 07/09/2020. Last DEXA per available records was 01/31/2019, due this summer. Assessment & Plan (07/09/2020 12:23 PM INSTRUMENT FITTER): Overdue for Reclast, last infusion was 03/28/2019, will receive infusion today. Vitamin D level was 68 Last DEXA per available records was 01/31/2019 Assessment & Plan (06/04/2020 11:15 AM INSTRUMENT FITTER): Overdue for Reclast, last infusion was 03/28/2019, will check benefits. Recheck vitamin D level now. Last DEXA per available records was 01/31/2019 Assessment & Plan (02/18/2020 9:46 PM CDT): Calcium, vit D and exercise. Continue to monitor DXA Assessment & Plan (08/13/2019 8:58 AM INSTRUMENT FITTER): Continue with Calcium, Vit D and Exercise. Recheck DXA iin Fall 2019 with mammogram Resolved Problems Problem Noted Date Diagnosed Date Resolved Date Encounter for pre-operative examination 05/07/2024 10/09/2024 Assessment & Plan (05/07/2024 8:57 PM INSTRUMENT FITTER): I have examined this patient and ordered [...] Krishnamurthy. 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 Daniels Stressed importance of very close follow-up BMI 37.0-37.9, adult 09/06/2023 024 Assessment & Plan (10/13/2023 7:38 AM CDT): Discussed the patient's BMI. The BMI is above average. BMI management plan is completed. BMI Follow-up includes: nutrition counseling, exercise counseling and education provided. Assessment & Plan (09/06/2023 9:42 AM INSTRUMENT FITTER): Discussed the patient's BMI. The BMI is above average. BMI management plan is completed. BMI Follow-up includes: nutrition counseling, exercise counseling and education provided. Hyperglycemia 09/06/2023 09/06/2023 Positive depression screening 09/06/2023 09/06/2023 Annual physical exam 09/06/2023 024 Assessment & Plan (09/06/2023 9:43 AM INSTRUMENT FITTER): Encouraged healthy lifestyle, good nutrition and exercise. Encouraged Calcium and Vitamin D and weight bearing exercise for bone health. Reviewed immunizations Reviewed age appropirate screenings. Orthopedic aftercare 08/09/2023 025 Right knee pain 08/09/2023 09/06/2023 Sinus congestion 08/07/2023 09/06/2023 Assessment & Plan (08/07/2023 7:54 PM INSTRUMENT FITTER): Persistent sinusitis symptoms along with cough. Will start doxy b.i.d.. Start antihistamine (Claritin OR Zyrtec), Mucinex 12hour and Steroid nasal spray (Flonase). Push fluids. Rest. Supportive care. If sxs worsen or don\'t improve, pt is to followup in the office. BMI 35.0-35.9,adult 08/03/2023 09/06/19 24 Assessment & Plan (08/07/2023 7:51 PM INSTRUMENT FITTER): Discussed the patient's BMI. The BMI is above average. BMI management plan is completed. BMI Follow-up includes: nutrition counseling, exercise counseling and education provided. Assessment & Plan (08/03/2023 8:29 AM INSTRUMENT FITTER): Discussed the patient's BMI. The BMI is [...] 01/22/2024 Assessment & Plan (06/02/2023 4:57 PM INSTRUMENT FITTER): Later in the day received critical lab call for a CO2 value at 42. My staff contacted the patient and she was instructed to go to the ER for further evaluation to determine underlying cause. She states throughout the day she has noticed a little bit more shortness of breath. She plans to have her brother drive her to [place]. Charge nurse was notified of the arrival [...] surgery. Will defer cardiac clearance to her crotch piece baster. Her chronic medical conditions are stable. [facility] as instructed her to hold the [...] Dr. Ge Sexton on May 04 at [facility]. Need for vaccination for Strep pneumoniae 01/20/2023 [...] symptoms worsen or do not respond to [id number] allergy medicines within the next week she [...] provided. Assessment & Plan (08/23/2022 2:19 PM INSTRUMENT FITTER): Discussed the patient's BMI. The BMI is [...] plans Assessment & Plan (07/18/2022 10:20 AM INSTRUMENT FITTER): CT revealed pelvic lipomatosis that is compressing [...] 12/20/2022 Assessment & Plan (07/18/2022 10:21 AM INSTRUMENT FITTER): CT revealed pelvic lipomatosis that is compressing [...] plan, Assessment & Plan (07/08/2022 12:33 PM INSTRUMENT FITTER): Patient has had dysuria. She was started [...] STAT abd/pelvis with and without contrast at [facility]. Check labs STAT. Acute right flank pain 07/08/202204/06 Assessment & Plan (07/18/2022 10:21 AM INSTRUMENT FITTER): CT revealed pelvic lipomatosis that is compressing [...] plan, Assessment & Plan (07/08/2022 5:58 PM INSTRUMENT FITTER): Images from the original note were not [...] STAT abd/pelvis with and without contrast at [facility]. Check labs STAT. STAT CT Abd/pelvis without [...] 09/06/2023 Assessment & Plan (07/08/2022 12:33 PM INSTRUMENT FITTER): Patient has had dysuria. She was started [...] STAT. Assessment & Plan (07/06/2022 8:50 AM INSTRUMENT FITTER): Pt presents with dysuria. Urine dip completed. [...] 35.00-39.99. Assessment & Plan (07/18/2022 10:23 AM INSTRUMENT FITTER): Discussed the patient's BMI. The BMI is above average. BMI management plan is completed. BMI Follow-up includes: nutrition counseling, exercise counseling and education provided. Assessment & Plan (07/08/2022 12:30 PM INSTRUMENT FITTER): Discussed the patient's BMI. 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 She has quite a few lesions scattered and would benefit from a full exam. Will make referral Annual physical exam 09/11/2021 022 Assessment & Plan (09/11/2021 11:28 PM INSTRUMENT FITTER): Encouraged healthy lifestyle, good nutrition and exercise. Encouraged Calcium and Vitamin D and weight bearing exercise for bone health. Reviewed immunizations Reviewed age appropirate screenings. Cough 08/13/2021 01/23/2022 Assessment & Plan (08/13/2021 3:43 PM INSTRUMENT FITTER): Patient to presume positive COVID/FLU until results are available and plan to self isolate for up to 10 days from the onset of sxs. Check COVID/FLU test thru [facility] collection site in [place]. Let pt know the newest CDC recommendations [...] future. Assessment & Plan (07/13/2021 11:28 AM INSTRUMENT FITTER): I have ordered the patient Claritin 10 [...] provided. Assessment & Plan (09/11/2021 11:27 PM INSTRUMENT FITTER): Obesity is unchanged. Discussed the patient's BMI. The BMI is above average. BMI management plan is completed. BMI Follow-up includes: nutrition counseling, exercise counseling and education provided. Assessment & Plan (05/29/2021 8:24 PM INSTRUMENT FITTER): Obesity is unchanged. Discussed the patient's BMI. The BMI is above average. BMI management plan is completed. BMI Follow-up includes: nutrition counseling, exercise counseling and education provided. Assessment & Plan (05/12/2021 1:26 PM INSTRUMENT FITTER): Obesity is unchanged. Discussed the patient's BMI. The BMI is above average. BMI management plan is completed. BMI Follow-up includes: nutrition counseling, exercise counseling and education provided. BMI 37.0-37.9, adult 05/12/2021 022 Assessment & Plan (09/11/2021 11:27 PM INSTRUMENT FITTER): Obesity is unchanged. Discussed the patient's BMI. The BMI is above average. BMI management plan is completed. BMI Follow-up includes: nutrition counseling, exercise counseling and education provided. Assessment & Plan (05/29/2021 8:24 PM INSTRUMENT FITTER): Obesity is unchanged. Discussed the patient's BMI. The BMI is above average. BMI management plan is completed. BMI Follow-up includes: nutrition counseling, exercise counseling and education provided. Assessment & Plan (05/12/2021 1:26 PM INSTRUMENT FITTER): Obesity is unchanged. Discussed the patient's BMI. The BMI is above average. BMI management plan is completed. BMI Follow-up includes: nutrition counseling, exercise counseling and education provided. Tinea corporis 04/14/2021 01/23/2022 Assessment & Plan (05/31/2021 9:15 PM INSTRUMENT FITTER): Improving with Lotrisone. Keep the area clean and dry Assessment & Plan (05/29/2021 8:24 PM INSTRUMENT FITTER): Lotrisone to pharmacy. Encouraged her to keep the area clean and dry use her dryer to dry the skin before applying the cream. She is to call if symptoms worsen or do not resolve. Need for immunization against influenza 04/14/2021 05/31/2021 Assessment & Plan (05/29/2021 8:24 PM INSTRUMENT FITTER): Fluid updated in the office Medicare annual wellness visit, subsequent 04/13/2021 05/31/2021 Assessment & Plan (05/29/2021 8:23 PM INSTRUMENT FITTER): Encouraged healthy lifestyle, good nutrition and exercise. [...] 12/30/2020 Assessment & Plan (08/31/2020 9:31 AM INSTRUMENT FITTER): Error. This should be right calf but PT order sent and corrected so unable to remove. Fatigue 08/31/2020 09/06/2023 Assessment & Plan (04/06/2023 7:43 PM CDT): Probably multifactorial. Check labs and followup to re-evaluate Assessment & Plan (05/02/2022 9:16 PM CDT): Probably multifactorial. Check labs and followup to re-evaluate Assessment & Plan (08/31/2020 9:34 AM INSTRUMENT FITTER): Probably multifactorial. Check labs and followup to re-evaluate Pain in both lower extremities 08/31/2020 09/06/2023 Assessment & Plan (09/01/2023 3:41 PM INSTRUMENT FITTER): Cramping lower leg pain has resolved with [...] 021 Assessment & Plan (08/31/2020 9:33 AM INSTRUMENT FITTER): Obesity is unchanged. Discussed the patient's BMI. The BMI is above average. BMI management plan is completed. BMI Follow-up includes: nutrition counseling, exercise counseling and education provided. Pain of right calf 08/26/2020 Assessment & Plan (08/31/2020 9:31 AM INSTRUMENT FITTER): This is a significant, separately identifiable problem that was evaluated and managed on the same day as the wellness exam Unable to rule out DVT with her calf pain/sxs. Check STAT Venous doppler. Recvd Results and discussed with patient via phone. Negative for DVT. Recommend PT. Prefers [place] Annual physical exam 08/24/2020 021 Assessment & Plan (08/31/2020 9:34 AM INSTRUMENT FITTER): Encouraged healthy lifestyle, good nutrition and exercise. Encouraged Calcium and Vitamin D and weight bearing exercise for bone health. Reviewed immunizations Reviewed age appropirate screenings. Dizziness 05/07/2020 09/06/2023 Assessment & Plan (05/14/2020 9:35 PM INSTRUMENT FITTER): Suspect the dizziness is inner ear related. [...] imaging. Assessment & Plan (05/07/2020 1:49 PM INSTRUMENT FITTER): Declines to report to er now 'I [...] 05/14/2020 Assessment & Plan (05/07/2020 1:49 PM INSTRUMENT FITTER): Declines to report to er now 'I [...] 12/30/2020 Assessment & Plan (05/07/2020 1:49 PM INSTRUMENT FITTER): Declines to report to er now 'I [...] provided Assessment & Plan (05/31/2021 9:15 PM INSTRUMENT FITTER): Mammogram order provided Assessment & Plan (02/18/2020 9:47 PM CDT): Mammogram order provided today Medicare annual wellness visit, subsequent 02/15/2020 02/15/2020 Precordial pain 09/04/2019 09/06/2023 Assessment & Plan (08/07/2023 7:50 PM INSTRUMENT FITTER): Workup in the hospital. Cardiology states her [...] inhaler. Assessment & Plan (07/13/2021 11:26 AM INSTRUMENT FITTER): The patient will continue with Dulera 2 [...] 020 Assessment & Plan (08/13/2019 8:59 AM INSTRUMENT FITTER): Encouraged healthy lifestyle, good nutrition and exercise. Encouraged Calcium and Vitamin D and weight bearing exercise for bone health. Reviewed immunizations Reviewed age appropirate screenings. Obesity, morbid, BMI 40.0-49.9 08/13/2019 09/23/2020 Assessment & Plan (08/26/2020 7:10 AM INSTRUMENT FITTER): Obesity is unchanged. Discussed the patient's BMI. The BMI is above average. BMI management plan is completed. BMI Follow-up includes: nutrition counseling, exercise counseling and education provided. Assessment & Plan (05/14/2020 9:33 PM INSTRUMENT FITTER): Obesity is unchanged. Discussed the patient's BMI. [...] provided. Assessment & Plan (08/13/2019 8:58 AM INSTRUMENT FITTER): Obesity is unchanged. Discussed the patient's BMI. [...] change Assessment & Plan (08/13/2019 9:01 AM INSTRUMENT FITTER): This is a significant, separately identifiable problem [...] 01/22/2024 Assessment & Plan (09/06/2023 9:42 AM INSTRUMENT FITTER): Probably multifactorial. Check labs and followup to re-evaluate Assessment & Plan (09/03/2021 11:28 AM INSTRUMENT FITTER): She notes increased fatigue and lack of [...] re-evaluate Assessment & Plan (08/13/2019 9:08 AM INSTRUMENT FITTER): Probably multifactorial. Check labs and followup to re-evaluate Check labs prior to next visit BMI 40.0-44.9, adult 08/02/2019 020 Assessment & Plan (08/13/2019 8:57 AM INSTRUMENT FITTER): Obesity is unchanged. Discussed the patient's BMI. The BMI is above average. BMI management plan is completed. BMI Follow-up includes: nutrition counseling, exercise counseling and education provided. Assessment & Plan (08/02/2019 7:21 AM INSTRUMENT FITTER): Obesity is unchanged. Discussed the patient's BMI. The BMI is above average. BMI management plan is completed. BMI Follow-up includes: nutrition counseling, exercise counseling and education provided. Morbid obesity 08/02/2019 08/13/2019 Assessment & Plan (08/02/2019 7:20 AM INSTRUMENT FITTER): Obesity is unchanged. Discussed the patient's BMI. The BMI is above average. BMI management plan is completed. BMI Follow-up includes: nutrition counseling, exercise counseling and education provided. Acute non-recurrent maxillary sinusitis 08/02/2019 08/13/2019 Assessment & Plan (08/02/2019 7:47 AM INSTRUMENT FITTER): Start antibiotic, antihistamine, Mucinex and Steroid nasal [...] foot. She is being sent directly to [facility] and they were working her in today. [...] 21 Assessment & Plan (05/14/2020 9:33 PM INSTRUMENT FITTER): Completed Doxy and steroid. No s/s infection. [...] p.r.n. Assessment & Plan (08/13/2019 8:59 AM INSTRUMENT FITTER): Continue with NSAIDs prn Atheroscler of [place] artery of both legs with intermit claudication 10/31/2018 12/20/2022 Assessment & Plan (09/11/2021 11:23 PM INSTRUMENT FITTER): Continue per vascular. She is on aspirin and statin Assessment & Plan (12/24/2020 9:03 AM CDT): Sxs stable. On ASA, statin and encouraged daily exercise. Assessment & Plan (02/18/2020 9:43 PM CDT): Continue per cardio. On ASA and statin Assessment & Plan (08/13/2019 8:45 AM INSTRUMENT FITTER): Continues with Dr. Alonso salmeron Assessment & Plan (11/01/2018 11:00 PM CDT): Pt sxs well controlled. On ASA Coronary artery disease of n ative artery of [place] heart with stable angina pectoris 10/31/2018 12/30/2020 Assessment & Plan (08/13/2019 8:36 AM INSTRUMENT FITTER): On ASA and Nitrate. Continue per cardio Depression 07/16/2018 09/11/2021 Frontal sinusitis 06/26/2018 12/24/2020 Leukopenia 03/29/2018 12/30/2020 Other chronic pain 08/05/2017 3 Chronic seasonal allergic rh initis due to pollen 04/25/2017 12/30/2020 Assessment & Plan (12/24/2020 9:03 AM CDT): Continue current regimen with singulair and otc Assessment & Plan (02/18/2020 9:44 PM CDT): Continue with otc regimen Assessment & Plan (08/13/2019 8:46 AM INSTRUMENT FITTER): Continue current regimen Assessment & Plan (11/01/2018 [...] potassium Assessment & Plan (09/11/2021 11:26 PM INSTRUMENT FITTER): Bp is stable/in acceptable range for any co-morbidities. Encouraged to limit sodium intake and exercise for weight control. Currently stable without medication Assessment & Plan (05/29/2021 8:19 PM INSTRUMENT FITTER): Bp is stable/in acceptable range for any co-morbidities. Encouraged to limit sodium intake and exercise for weight control. Continue Lasix is helping with the swelling and addition. Blood pressure stable Assessment & Plan (05/24/2021 10:38 AM INSTRUMENT FITTER): Continue Lasix potassium Assessment & Plan (12/24/2020 9:05 AM CDT): Bp is stable/in acceptable range for any co-morbidities. Encouraged to limit sodium intake and exercise for weight control. Assessment & Plan (08/31/2020 9:32 AM INSTRUMENT FITTER): Bp is stable/in acceptable range for any co-morbidities. Encouraged to limit sodium intake and exercise for weight control. Stable with laxis currently Assessment & Plan (02/18/2020 9:44 PM CDT): Bp is stable/in acceptable range for any co-morbidities. Encouraged to limit sodium intake and exercise for weight control. Assessment & Plan (08/13/2019 8:57 AM INSTRUMENT FITTER): Bp is stable/in acceptable range for any [...] difficulty pulling them. Recommend finding some on [employer] that fit her calf that she can zip on and off. Showed them to her on [employer] and where to order them. She states she will try to get them. Assessment & Plan (05/31/2021 9:16 PM INSTRUMENT FITTER): Improving slowly. May have been due to the Relafen. She is on 60 of Lasix with potassium 10 mEq daily. Continue with current plan. Keep legs elevated. Utilize compressi to improve cleared. on hose. Call if symptoms worsen or do not continue to improve. Assessment & Plan (05/29/2021 8:23 PM INSTRUMENT FITTER): Persistent lower extremity edema that has improved [...] CMP. Assessment & Plan (05/24/2021 10:39 AM INSTRUMENT FITTER): Patient that her swelling was improving since discharge for over the last day or so it seems to be increasing. Will increase the Lasix to 40mg Start K 10meq daily Recheck labs in 5 days Assessment & Plan (08/31/2020 9:33 AM INSTRUMENT FITTER): Continue lasix Palpitations 12/08/2015 12/30/2020 Overview (10/09/2016): Palpitations Other abnormal glucose 11/11/201508/31 Asthma 10/14/2015 12/24/2020 Assessment & Plan (08/13/2019 8:49 AM INSTRUMENT FITTER): Continue with current regimen and with Pulmonary [...] noted. Assessment & Plan (08/23/2024 10:16 AM INSTRUMENT FITTER): 02/2021 XR L knee with mild to moderate OA, now s/p B TKA. Following with ortho as planned. Assessment & Plan (07/30/2024 11:23 AM INSTRUMENT FITTER): 02/2021 XR L knee with mild to [...] March. Assessment & Plan (09/01/2023 3:42 PM INSTRUMENT FITTER): 02/2021 XR L knee with mild to moderate OA, R knee negative. Had injections with ortho without benefit, now s/p L TKA. Assessment & Plan (06/30/2023 12:46 PM INSTRUMENT FITTER): 02/2021 XR L knee with mild to [...] g/d. Assessment & Plan (07/15/2022 1:41 PM INSTRUMENT FITTER): 02/2021 XR L knee with mild to moderate OA, R knee negative. Had injections with ortho with benefit. Unable to afford PT. Can continue Tylenol Arthritis, not to exceed 4 g/d. Assessment & Plan (06/03/2022 9:58 AM INSTRUMENT FITTER): 02/2021 XR L knee with mild to [...] evaluation. Assessment & Plan (09/03/2021 11:27 AM INSTRUMENT FITTER): XR L knee with mild to moderate [...] able. Assessment & Plan (06/04/2021 10:27 AM INSTRUMENT FITTER): XR L knee with mild to moderate [...] above. Assessment & Plan (09/03/2020 12:23 PM INSTRUMENT FITTER): 10/27/2017 XR L knee: mild tricompartmental OA. Will continue meloxicam as above. Assessment & Plan (07/09/2020 12:24 PM INSTRUMENT FITTER): 10/27/2017 XR L knee: mild tricompartmental OA. Will continue meloxicam as above. In the future may consider trial of PT. Immunizations Immunization Administration Dates Next Due COVID-19 mRNA ([employer]) 0.3 m L (30 mcg) vaccine [...] 07/04/2024(Deferr ed: Patient Refused),03/30/2022 PPD TEST 05/11/2023 [employer] SARS-CoV-2 Monovalent Vaccination (12+ Yrs) [facility]-READY TO [...] drink = 0.6 oz pur e alcohol) [facility] Utilities Answer Date Recorded In the past [...] often do you attend chur ch or anabaptist services? 1 to 4 times per year [...] any time in the past 12 m [facility], were you homeless or living [...] on file Legal Sex Female 8:04 PM INSTRUMENT FITTER Gender Identity Female 02/15/2020 6:08 PM CDT [...] on file Medical Devices Implanted Type Area Homeworker Device Identifier Shelf Expiration Date Model / Serial / Lot [employer] Simplex P Radiopaque Full Dose Cement Bone Sterile 6191-1-010 - [id number] Implanted:Qty: 2 on 05/04/2023 by Michael Motta MD at [facility] Bone Cement Left: Knee [employer] 05/03/2025 6191-1-010 / 6191-1-001 / [id number] [employer] Simplex P Radiopaque Full Dose Cement Bone Sterile 6191-1-010 - [id number] Implanted:Qty: 2 on 05/30/2024 by Michael Motta MD at [facility] Bone Cement Right: Patella [employer] [id number] 05/03/2026 6191-1-010 / / [id number] [employer] Persona 14mm 30+ Mm Knee Tibia Taper Extension Stem [id number] - [id number] - [id number] Implanted:Qty: 1 on 05/04/2023 by Michael Motta MD at [facility] Left: Knee [employer] [id number] 02/15/2033 [id number] / [id number] / [id number] [employer] Persona Cemented Cruciate Retaining Knee Left 7 Narrow Component [id number] - [id number] - [id number] Implanted:Qty: 1 on 05/04/2023 by Michael Motta MD at [facility] Left: Knee [employer] [id number] 10/25/2032 [id number] / [id number] / [id number] [employer] Baseplate Tibial Knee Cemented Left Fixed Stemmed Persona Size D Tivanium [id number] - [id number] 1 - [id number] Implanted:Qty: 1 on 05/04/2023 by [facility] [place] Left: Knee [employer] [id number] 09/11/2032 [id number] / [id number] / [id number] [employer] Persona 11mm Knee Left 6-7 C-D Insert Articular Vivacit-E Sterile [id number] - [id number] - [id number] Implanted:Qty: 1 on 05/04/2023 by Michael Motta MD at [facility] [place] Left: Knee [employer] [id number] 12/28/2025 [id number] / [id number] / [id number] [employer] Persona 32mm Knee Component Patellar All Poly Latex Free [id number] - [id number] Implanted:Qty: 1 on 05/04/2023 by Michael Motta MD at [facility] [place] [employer] 12/19/2027 [id number] / / [id number] [employer] Baseplate Tibial Knee Cemented Right Fixed Stemmed Persona Size C Tivanium [id number] - [id number] Implanted:Qty: 1 on 05/30/2024 by Michael Motta MD at [facility] [place] Right: Knee [employer] [id number] 03/22/2033 [id number] / / [id number] [employer] Persona 29mm Knee Component Patellar All Poly Latex Free [id number] - [id number] Implanted:Qty: 1 on 05/30/2024 by Michael Motta MD at [facility] [place] Right: Knee [employer] [id number] 12/18/2028 [id number] / / [id number] [employer] Persona 13mm Cruciate Retain Knee Right 6-7 Cd Insert Articular Latex Free [id number] - [id number] Implanted:Qty: 1 on 05/30/2024 by Michael Motta MD at [facility] [place] Right: Patella [employer] [id number] 05/04/2025 [id number] / / [id number] [employer] Persona Cruciate Retaining Cemented Knee Right 7 Narrow Component [id number] - [id number] Implanted:Qty: 1 on 05/30/2024 by Michael Motta MD at [facility] [place] Right: Knee [employer] [id number] 12/27/2033 [id number] / / [id number] [employer] Persona 14mm 30+ Mm Knee Tibia Taper Extension Stem [id number] - [id number] Implanted:Qty: 1 on 05/30/2024 by Michael Motta MD at [facility] [place] Right: Knee [employer] [id number] 04/11/2034 [id number] / / [id number] Procedures Procedure Name Priority Date/Time Associated Diagnosis [...] Read Routine (OP Routine) 08/29/2024 12:23 PM INSTRUMENT FITTER COMPREHENSIVE METABOLIC PANEL Routine 08/23/2024 2:11 PM INSTRUMENT FITTER Encounter for medication monitoring CBC WITH AUTO DIFFERENTIAL Routine 08/23/2024 2:11 PM INSTRUMENT FITTER Encounter for medication monitoring SCAN - LABS 08/23/2024 DEXA AXIAL SKELETON BONE DENSITY 1 OR MORE SITES Schedule Routine, Read Routine (OP Routine) 04/12/2023 8:14 AM CDT COLONOSCOPY Routine 07/27/2021 HEPATITIS C ANTIBODY Routine 06/04/2020 10:29 AM INSTRUMENT FITTER Encounter for screening for other viral diseases Chronic fatigue from Last 3 Months or Most Recently Relevant to Health Maintenance Results * POC Influenza A/B, COVID-19 antigen (10/23/2024 1:14 PM CDT) Pathologist [facility] Influenza A Ag, POC Negative Negative [facility] Influenza B Ag, POC Negative Negative [facility] COVID-19 Ag POC Presumptive Negative Presumptive Negative, Invalid [facility] Nasal 10/23/2024 1:14 PM CDT Alee OSMAN POINT OF CARE TEST ORDERAB LES Final Result [facility] [place] [address] [facility] [address] [place] [address] * (ABNORMAL) Urine culture (10/10/2024 2:46 PM CDT) Pathologist [facility] SCRIBED Urine Culture, Routine 100,000 Historical Provider [...] Negative Presumptive Negative, Invalid [facility] 09/25/2024 11:0 2 AM CDT Jessica Collins NP POINT OF CARE TEST ORDERABLES Final Result Performing Organization Address City/State/[facility] Co de Phone Number [facility] ED[facility] [address] [place] [address], [facility] * XR Knee Right 3 Views [...] John Sparrow M.D. RB T: Report ID: [id number] Reading Location: [id number] Procedure Note John Sparrow MD - 09/18/2024 [...] John Sparrow M.D. RB T: Report ID: [id number] Reading Location: [place] [address] Michael Motta MD IMG XR PROCEDURES Final Re sult * (ABNORMAL) CT Abdomen Pelvis W Contrast (08/29/2024 12:23 PM INSTRUMENT FITTER) Anatomical Region Laterality Modality Body N/A Computed Tomogra phy Historical Provider MD [facility] CT PROCEDURES Edited Result - Final * CBC with auto differential (08/23/2024 2:11 PM INSTRUMENT FITTER) WBC 4.8 3.8 - 10.8 Thousand/u L [...] [facility] Blood 08/23/2024 2:11 PM INSTRUMENT FITTER 08/23/2024 2:11 PM INSTRUMENT FITTER Sangita OSMAN LAB BLOOD ORDERABLES Vy l Result [facility] [address] [place] [address] * (ABNORMAL) Comprehensive metabolic panel (08/23/2024 2:11 PM INSTRUMENT FITTER) Pathologist [facility] Glucose 188(H) 65 [...] [facility] Blood 08/23/2024 2:11 PM INSTRUMENT FITTER 08/23/2024 2:11 PM INSTRUMENT FITTER Result [facility] Sangita OSMAN LAB BLOOD ORDERABLES Vy l Result [facility] [address] [place] [address] * SCAN - LABS (08/23/2024) Alee OSMAN [...] * Hepatitis C antibody (06/04/2020 10:29 AM INSTRUMENT FITTER) Hep C Ab NON-REACTI VE NON-REACT ALEXYS [facility] SIGNAL TO CUT-OFF 0.02 <1.00 [facility] Comment: HCV antibody was non-reactive. There is no laboratory evidence of HCV infection. In most cases, no further action is required. However, if recent HCV exposure is suspected, a test for HCV RNA (test code 39405) is suggested. For additional information please refer to http://education.Helium/faq/RVX27m2 (This link is being provided for informational/ educational purposes only.) Blood specimen (specimen) 06/04/2020 10:29 AM INSTRUMENT FITTER 06/04/2020 10:30 AM INSTRUMENT FITTER Sangita OSMAN LAB MICROBIOLOGY - GENERA L ORDERABLES Final Result [facility] [address] [place] [address] from Last 3 Months or Most Recently Relevant to Health [place] [id number] [facility] MEDICARE ADVANTAGE UHC MEDICARE ADVANTAGE Advance Directives For more information, please contact: [phone] Documents on File Type Date Recorded Patient Pharmacology Teacher Expl anation ADVANCE DIRECTIVE 05/17/2024 2:13 PM Yonis r of Data Storage Specialist-Medical * Full Code (Latest Code Status on File) Date Activated Date Inactivated Comments 05/30/2024 12:38 PM 06/05/2024 6:31 PM * Full Code Date Activated Date Inactivated Comments 05/04/2023 2:33 PM 05/07/2023 3:07 AM * Full Code Date Activated Date Inactivated Comments 03/22/2021 4:39 PM 03/25/2021 6:17 PM Care Teams Fingerer Relationship Specialty Start Date End Date Alee Elizondo PA [address] [place] [place] [phone] (Work) PCP - General Internal Medicine 07/05/23 Sharan Linton MD Referring Physician Gastroenterology 10/31/18 Martha Starks MD Consulting Physician Cardiology 12/24/20 Shama Hines MD [address] [facility], [facility] [address] [place] [address] Consulting Physician Pain Management 01/19/21 Artis Grewal MD [address] [place] [address] Consulting Physician Rheumatology 01/30/21 Amy Mayes NP [address] [facility] [address] [place] [address] Nurse Practitioner Cardiovascular Disease 04/20/24 Shailesh Dunn MD [address] [facility] [address] [place] [address] Consulting Physician Pulmonary Disease 04/20/24 Sangita Farrar PA [address] [place] [address] Physician Plumber'S Assistant Rheumatology 05/15/24
--- OUTSIDE RECORDS SUMMARY | 2024-11-05 18:32 | XMS_ITS | Encounter Summary ---
Author Organization [facility] Healthcare Address [address] [place] [address] Care Team Providers Care Middle School English Teacher Name Role Phone Sharan Linton MD Unavailable [phone] Martha Starks MD Unavailable +[phone] Shama Hines MD Unavailable Artis Grewal MD Unavailable +[phone] Alee Elizondo Primary Care Provider [phone] Amy Mayes NP Unavailable +[phone] Shailesh Dunn MD Unavailable +[phone] Sangita Farrar Unavailable +[phone] Encounter Details Date Type Department Care Team (Late st Contact Info) Description 12/08/2023 Orders Only [facility] Health Information Management [address] [place] [address] Scanning, Provider Social History Tobacco Use Types [...] often do you attend chur ch or hinduism services? 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 PM MEDICAL PATHOLOGIST Gender Identity Female 02/15/2020 6:08 PM CDT [...] documented as of this encounter Care Teams Middle School English Teacher Relationship Specialty Start Date End Date Alee Elizondo PA [address] [facility] [address] [place] [address] PCP - General Internal Medicine 07/05/23 Sharan Linton MD Referring Physician Gastroenterology 10/31/18 Martha Starks MD Consulting Physician Cardiology 12/24/20 Shama Hines MD [address] [facility] [address] Consulting Physician Pain Management 01/19/21 Artis Grewal MD [address] [place] [address] Consulting Physician Rheumatology 01/30/21 Amy Mayes NP [address] [address] Nurse Practitioner Cardiovascular Disease 04/20/24 Shailesh Dunn MD 46[address] [facility] [address] [address] Consulting Physician Pulmonary Disease 04/20/24 Sangita Farrar PA [address] [place] [address] Physician Hanging Flags Decorator Rheumatology 05/15/24 documented as of this encounter
--- OUTSIDE RECORDS SUMMARY | 2024-11-05 18:32 | XMS_ITS | Clinical Summary ---
Author Organization [facility] Address [address] [place] [address] Care Team Providers Care Buckle Stringer Name Role Phone Unavailable Primary Care Provider [...]
--- OUTSIDE RECORDS SUMMARY | 2024-11-05 18:32 | XMS_ITS | Encounter Summary ---
Author Organization [facility] Facility Care Team Providers Care Clam Picker Name Role Phone Alee Elizondo Primary Care Provider + [phone] Sharan Linton MD Unavailable Taisha Gomez MD Unavailable +[phone] Parag Soto MD Unavailable [phone] RaziaMartha singh MD Unavailable [phone] Puneet Uribe MD Unavailable +[phone] Shama Hines MD Unavailable Artis Grewal MD Unavailable [phone] Harrison Pena RN Unavailable +[phone] Nafisa Gregg RN Unavailable +[phone] Tho Kelsey MD Primary Care Provider [phone] Alee Elizondo Primary Care Provider + [phone] Amy Mayes NP Unavailable +[phone] Shailesh Dunn MD Unavailable [phone] Sangita Farrar Unavailable +[phone] Encounter Details Date Type Department Care Team (Latest Contact Info) Description 08/10/2017 Orders Only [facility] CLINCONV Provider, MD Tania [address] [place] [address] Social History Tobacco Use Types Packs/Day Years Used Date Smoking Tobacco: Never Smokeless Tobacco: Never Alcohol Use Standard Drinks/Week Comments No 0 (1 standard drink = 0.6 oz pur e alcohol) Comments Unknown Sex and Gender Information Value Date Recorded Sex Assigned at Not on file Legal Sex Female 8:04 PM HIGH DENSITY PRESS LABORER Gender Identity Female 02/15/2020 6:08 PM CDT Sexual Orientation Not on file documented as of this encounter Plan of Treatment Not on file documented as of this encounter Procedures Procedure Name Priority Date/Time Associated Diagnosis Comments CARDIOLOGY REPORT 08/10/2017 12: 00 AM HIGH DENSITY PRESS LABORER documented in this encounter Results * CARDIOLOGY REPORT (08/10/2017 12:00 AM HIGH DENSITY PRESS LABORER) Anatomical Region Laterality Modality Other Narrative 08/10/2017 12:00 AM HIGH DENSITY PRESS LABORER Ordered by an unspecified provider. Historical Provider [facility] LEANDRA LANDRUM Final Result documented in this encounter Visit Diagnoses Not on filedocumented in this encounter Additional Health Concerns Infection Onset Date Last Indicated Resolved Time COVID: Suspected 08/13/2021 08/14/2021 08/14/2021 3:06 AM HIGH DENSITY PRESS LABORER COVID: Suspected 08/14/2021 08/14/2021 08/15/2021 3:05 AM HIGH DENSITY PRESS LABORER COVID: Suspected 08/14/2021 08/14/2021 08/15/2021 6:25 AM HIGH DENSITY PRESS LABORER COVID: Suspected 06/02/2023 06/02/2023 06/02/2023 7:25 PM HIGH DENSITY PRESS LABORER COVID: Suspected 07/26/2023 07/26/2023 07/26/2023 3:10 PM HIGH DENSITY PRESS LABORER COVID: Suspected 09/25/2024 09/25/2024 09/25/2024 11:03 AM CDT Influenza, adult 09/25/2024 09/25/2024 10/02/2024 3:05 AM CDT COVID: Suspected 10/23/2024 10/23/2024 10/23/2024 1:15 PM CDT documented as of this encounter Care Teams Clam Picker Relationship Specialty Start Date End Date Alee Elizondo PA [address] [place] [address] PCP - General Internal Medicine 02/01/17 06/29/23 Tho Kelsey MD [address] [place] [address] [address] [place] [address] PCP - General Family Medicine 06/30/23 07/04/23 Alee Elizondo PA [address] [place] [place] [address] PCP - General Internal Medicine 07/05/23 Sharan Linton MD [address] [place] [address] [place] [address] Referring Physician Gastroenterology 10/31/18 Taisha Gomez MD [address] [place] [place] [address] Referring Physician Pulmonary Disease 10/31/18 12/23/20 Parag Soto MD [address] [place] [address] [place] [address] Referring Physician Rheumatology 10/31/18 12/23/20 Martha Starks MD [address] [place] [place] [address] Consulting Physician Cardiology 12/24/20 Puneet Uribe MD [address] [facility] [address] [place] [address] Consulting Physician Rheumatology 12/24/20 01/29/21 Shama Hines MD [address] [facility] [address] Consulting Physician Pain Management 01/19/21 Artis Grewal MD [address] [place] [address] Consulting Physician Rheumatology 01/30/21 Harrison Pena RN [address] [place] [address] Pulmonary Fellow 05/30/23 09/04/23 Nafisa Gregg RN [address] [place] [address] Pulmonary Fellow 06/06/23 06/12/23 Amy Mayes NP [address] [address] Nurse Practitioner Cardiovascular Disease 04/20/24 Shailesh Dunn MD [address] [address] Consulting Physician Pulmonary Disease 04/20/24 Sangita Farrar PA [address] [place] [address] Physician Cofounder Rheumatology 05/15/24 documented as of this encounter
--- OUTSIDE RECORDS SUMMARY | 2024-11-05 18:32 | XMS_ITS | Continuity of Care Document ---
Author Organization [facility] Address [address] [place] [address] [place] [address] Phone Care Team Providers Care Coding And Reimbursement Specialist Name Role Phone Oswald No DO Unavailable Unavailable Advance Directives Directive Yes / No Effective Date File Name No Information Encounters Encounter Description Practice Location Reason(s) For Visit Diagnoses Date Provider Providers Copied on Encounter [facility], [id number] [place] [address] [address], [place], [place], [id number], [place] tel:[phone] [facility] No Information Oneal Combs. [address] [facility], [place], [address], [place]. tel: [phone] Family History Family Member Type Diagnosis Age [...]
--- OUTSIDE RECORDS SUMMARY | 2024-11-05 18:32 | XMS_ITS | Encounter Summary ---
Author Organization [facility] Facility Care Team Providers Care Head End Desizing 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 Name Role Phone Alee Elizondo Primary Care Provider + [phone] Sharan Linton MD Unavailable [phone] Taisha Gomez MD Unavailable [phone] Parag Soto MD Unavailable [phone] RaziaMartha singh MD Unavailable [phone] Puneet Uribe MD Unavailable +[phone] Shama Hines MD Unavailable Artis Grewal MD Unavailable [phone] Harrison Pena RN Unavailable [phone] Nafisa Gregg RN Unavailable +[phone] Tho Kelsey MD Primary Care Provider [phone] Alee Elizondo Primary Care Provider + [phone] Amy Mayes NP Unavailable +[phone] Shailesh Dunn MD Unavailable +[phone] Sangita Farrar Unavailable +[phone] Encounter Details Date Type Department Care Team (Latest Contact Info) Description 01/08/2017 Orders Only [facility] CLINCONV Provider, MD Tania [address] [place] [address] Social History Tobacco Use Types Packs/Day Years Used Date Smoking Tobacco: Never Alcohol Use Standard Drinks/Week Comments No 0 (1 standard drink = 0.6 oz pur e alcohol) Comments Unknown Sex and Gender Information Value Date Recorded Sex Assigned at Not on file Legal Sex Female 8:04 PM SEAT TRIMMER Gender Identity Female 02/15/2020 6:08 PM CDT [...] COVID: Suspected 08/13/2021 08/14/2021 08/14/2021 3:06 AM SEAT TRIMMER COVID: Suspected 08/14/2021 08/14/2021 08/15/2021 3:05 AM SEAT TRIMMER COVID: Suspected 08/14/2021 08/14/2021 08/15/2021 6:25 AM SEAT TRIMMER COVID: Suspected 06/02/2023 06/02/2023 06/02/2023 7:25 PM SEAT TRIMMER COVID: Suspected 07/26/2023 07/26/2023 07/26/2023 3:10 PM SEAT TRIMMER COVID: Suspected 09/25/2024 09/25/2024 09/25/2024 11:03 AM CDT Influenza, adult 09/25/2024 09/25/2024 10/02/2024 3:05 AM CDT COVID: Suspected 10/23/2024 10/23/2024 10/23/2024 1:15 PM CDT documented as of this encounter Care Teams Head End Desizing 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 Relationship Specialty Start Date End Date Alee Elizondo PA [address] [facility] 500 [place] [address] PCP - General Internal Medicine 02/01/17 06/29/23 Tho Kelsey MD [address] [place] [address] [address] [facility] [address] [place] [address] PCP - General Family Medicine 06/30/23 07/04/23 Alee Elizondo PA [address] [facility] [address] [facility] [address] [place] [address] PCP - General Internal Medicine 07/05/23 Sharan Linton MD 10[address] [facility] [address] [place] [address] Referring Physician Gastroenterology 10/31/18 Taisha Gomez MD 1095 [facility] [address] [place] [address] Referring Physician Pulmonary Disease 10/31/18 12/23/20 Parag Soto MD 10[address] [facility] [address] [place] [address] Referring Physician Rheumatology 10/31/18 12/23/20 Martha Starks MD [address] [facility] [address] [place] [address] Consulting Physician Cardiology 12/24/20 Puneet Uribe MD [address] [facility] [address] [place] [address] Consulting Physician Rheumatology 12/24/20 01/29/21 Shama Hines MD 47[address] [facility], [facility] [address] [place] [address] Consulting Physician Pain Management 01/19/21 Artis Grewal MD [address] [place] [address] Consulting Physician Rheumatology 01/30/21 Harrison Pena RN [address] [place] [address] Pig Sticker 05/30/23 09/04/23 Nafisa Gregg, JULIUS [address] [place] [address] [address] [place] [address] Pig Sticker 06/06/23 06/12/23 Amy Mayes NP [address] [address] Nurse Practitioner Cardiovascular Disease 04/20/24 Shailesh Dunn MD [address] [address] Consulting Physician Pulmonary Disease 04/20/24 Sangita Farrar PA [address] [place] [address] Physician Music Copyist Rheumatology 05/15/24 documented as of this encounter
--- OUTSIDE RECORDS SUMMARY | 2024-11-05 18:32 | XMS_ITS | Encounter Summary ---
Author Organization [facility] Facility Care Team Providers Care Inside Meter Tester Name Role Phone Alee Elizondo Primary Care Provider + [phone] Sharan Linton MD Unavailable [phone] Taisha Gomez MD Unavailable [phone] Parag Soto MD Unavailable [phone] RaziaMartha singh MD Unavailable [phone] Puneet Uribe MD Unavailable +[phone] Shama Hines MD Unavailable Artis Grewal MD Unavailable [phone] Harrison Pena RN Unavailable +[phone] Nafisa Gregg RN Unavailable +[phone] Tho Kelsey MD Primary Care Provider [phone] Alee Elizondo Primary Care Provider + [phone] Amy Mayes NP Unavailable +[phone] Shailesh Dunn MD Unavailable +[phone] Sangita Farrar Unavailable +[phone] Encounter Details Date Type Department Care Team (Latest Contact Info) Description 11/04/2015 Orders Only [facility] CLINCONV Provider, MD Tania [address] [place] [address] Social History Tobacco Use Types Packs/Day Years Used Date Smoking Tobacco: Never Assessed Comments Unknown Sex and Gender Information Value Date Recorded Sex Assigned at Not on file Legal Sex Female 8:04 PM CARBON ROD INSERTER Gender Identity Female 02/15/2020 6:08 PM CDT [...] COVID: Suspected 08/13/2021 08/14/2021 08/14/2021 3:06 AM CARBON ROD INSERTER COVID: Suspected 08/14/2021 08/14/2021 08/15/2021 3:05 AM CARBON ROD INSERTER COVID: Suspected 08/14/2021 08/14/2021 08/15/2021 6:25 AM CARBON ROD INSERTER COVID: Suspected 06/02/2023 06/02/2023 06/02/2023 7:25 PM CARBON ROD INSERTER COVID: Suspected 07/26/2023 07/26/2023 07/26/2023 3:10 PM CARBON ROD INSERTER COVID: Suspected 09/25/2024 09/25/2024 09/25/2024 11:03 AM CDT Influenza, adult 09/25/2024 09/25/2024 10/02/2024 3:05 AM CDT COVID: Suspected 10/23/2024 10/23/2024 10/23/2024 1:15 PM CDT documented as of this encounter Care Teams Inside Meter Tester Relationship Specialty Start Date End Date Alee Elizondo PA [address] [address] PCP - General Internal Medicine 02/01/17 06/29/23 Tho Kelsey MD [address] [place] [address] DR [facility] [address] [place] [address] PCP - General Family Medicine 06/30/23 07/04/23 Alee Elizondo PA [address] [place] [address] PCP - General Internal Medicine 07/05/23 Sharan Linton MD [address] [facility] 500 [place], [place] [address] Referring Physician Gastroenterology 10/31/18 Taisha Gomez MD [address] [facility] [address] [place], [place] [address] Referring Physician Pulmonary Disease 10/31/18 12/23/20 Parag Soto MD [address] [facility] [address] [place] [address] Referring Physician Rheumatology 10/31/18 12/23/20 Martha Starks MD [address] [place] [place], [place] [id number] Consulting Physician Cardiology 12/24/20 Puneet Uribe MD [address] [facility] [address] [place] [address] Consulting Physician Rheumatology 12/24/20 01/29/21 Shama Hines MD 4700 [facility], [facility] [address] [place] [address] Consulting Physician Pain Management 01/19/21 Artis Grewal MD [address] [place] [address] Consulting Physician Rheumatology 01/30/21 Harrison Pena, JULIUS [address] [place] [address] Gyroscopic Instrument Tester 05/30/23 09/04/23 Nafisa Gregg, JULIUS [address] [place] [address] [facility] [address] [place] [address] Gyroscopic Instrument Tester 06/06/23 06/12/23 Amy Mayes NP [address] [address] Nurse Practitioner Cardiovascular Disease 04/20/24 Shailesh Dunn MD [address] [address] Consulting Physician Pulmonary Disease 04/20/24 Sangita Farrar PA [address] [place] [address] Physician Putty Patcher Rheumatology 05/15/24 documented as of this encounter
--- OUTSIDE RECORDS SUMMARY | 2024-11-05 18:32 | XMS_ITS | Clinical Summary ---
Author Organization [facility] Address [address] [facility] [place] [address] Care Team Providers Care Freight Broker Agent Name Role Phone Darvin Harden MD Primary Care Provider [phone] Source Comments [facility],non-owned Affiliates and Associated Physician Practices is amultiple site organization consisting of ambulatory clinics and hospital sitesin [place], [place], [place] and [place]. This disclosure is being madepursuant to the Care Everywhere program and may not contain all information available regarding this patient. Last updated 18.[facility] Allergies Active Allergy Reactions Criticality Noted Date [...] fluticasone propionate (Flonase) 50 MCG/ACT nasal spray [place] 2 (two) sprays into the nose once [...] on file Legal Sex Female 4:14 PM SHREDDING SPECIALIST Gender Identity Not on file Sexual Orientation [...] age to complete this topic Insurance MEDICARE [facility] MEDICARE SELF PAY NO INSURANCE Member Subscriber Plan / Payer (Ef fective for All Dates) Name:Nohemy Lock Member ID:Not on file Relation to Subscriber:Not on file Name:NOHEMY LOCK Subscriber ID:Not on file Address: [address] [address] Payer ID:Not on file Group ID:Not on file Type:Self Pay Address: [place], [place] [facility] MEDICARE SELF PAY NO INSURANCE Member Subscriber Plan / Payer (Ef fective for All Dates) Name:Nohemy Lock Member ID:Not on file Relation to Subscriber:Not on file Name:NOHEMY LOCK Subscriber ID:Not on file Address: [address] [place] [address] Payer ID:Not on file Group ID:Not on file Type:Self Pay Address: [place], [place] [facility] MEDICARE SELF PAY NO INSURANCE Member Subscriber Plan / Payer (Ef fective for All Dates) Name:Nohemy Lock Member ID:Not on file Relation to Subscriber:Not on file Name:NOHEMY LOCK Subscriber ID:Not on file Address: [facility] [place] [address] Payer ID:Not on file Group ID:Not on file Type:Self Pay Address: [place], [place] Care Teams Freight Broker Agent Relationship Specialty Start Date End Date Darvin Harden MD [address] [facility] [address] [place] [address] PCP - General 07/11/19
--- OUTSIDE RECORDS SUMMARY | 2024-11-05 18:32 | XMS_ITS | Encounter Summary ---
Author Organization [facility] Care Team Providers Care Inbound Customer Service Agent Name Role Phone Alee Elizondo Primary Care Provider + [phone] Sharan Linton MD Unavailable [phone] Taisha Gomez MD Unavailable [phone] Parag Soto MD Unavailable [phone] RaziaMartha singh MD Unavailable [phone] Puneet Uribe MD Unavailable [phone] Shama Hines MD Unavailable Artis Grewal MD Unavailable [phone] Harrison Pena RN Unavailable [phone] Nafisa Gregg RN Unavailable [phone] Tho Kelsey MD Primary Care Provider [phone] Alee Elizondo Primary Care Provider + [phone] Amy Mayes NP Unavailable [phone] Shailesh Dunn MD Unavailable [phone] Sangita Farrar Unavailable [phone] Encounter Details Date Type Department Care Team (Latest Contact Info) Description 03/24/2016 Orders Only [facility]INCONV Provider, MD Tania [address] [place] [address] Social History Tobacco Use Types Packs/Day Years Used Date Smoking Tobacco: Never Alcohol Use Standard Drinks/Week Comments No 0 (1 standard drink = 0.6 oz pur e alcohol) Comments Unknown Sex and Gender Information Value Date Recorded Sex Assigned at Not on file 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 Gender Identity Female 02/15/2020 6:08 PM CDT [...] COVID: Suspected 08/13/2021 08/14/2021 08/14/2021 3:06 AM BACK TENDER FOURDRINIER COVID: Suspected 08/14/2021 08/14/2021 08/15/2021 3:05 AM BACK TENDER FOURDRINIER COVID: Suspected 08/14/2021 08/14/2021 08/15/2021 6:25 AM BACK TENDER FOURDRINIER COVID: Suspected 06/02/2023 06/02/2023 06/02/2023 7:25 PM BACK TENDER FOURDRINIER COVID: Suspected 07/26/2023 07/26/2023 07/26/2023 3:10 PM BACK TENDER FOURDRINIER COVID: Suspected 09/25/2024 09/25/2024 09/25/2024 11:03 AM CDT Influenza, adult 09/25/2024 09/25/2024 10/02/2024 3:05 AM CDT COVID: Suspected 10/23/2024 10/23/2024 10/23/2024 1:15 PM CDT documented as of this encounter Care Teams Inbound Customer Service Agent Relationship Specialty Start Date End Date Alee Elizondo PA [address] [facility] [address] [place] [address] PCP - General Internal Medicine 02/01/17 06/29/23 Tho Kelsey MD [address] [place] [address] [address] [place] [address] PCP - General Family Medicine 06/30/23 07/04/23 Alee Elizondo PA [address] [facility] [address] [place] [address] PCP - General Internal Medicine 07/05/23 Sharan Linton MD [address] [facility] [address] [place] [address] Referring Physician Gastroenterology 10/31/18 Taisha Gomez MD [address] [facility] [address] [place] [address] Referring Physician Pulmonary Disease 10/31/18 12/23/20 Parag Soto MD [address] [facility] [address] [place] [address] Referring Physician Rheumatology 10/31/18 12/23/20 Martha Starks MD [address] [facility] [address] [place] [address] Consulting Physician Cardiology 12/24/20 Puneet Uribe MD [address] [facility] [address] [place] [address] Consulting Physician Rheumatology 12/24/20 01/29/21 Shama Hines MD [address] [facility], [address] [place] [address] Consulting Physician Pain Management 01/19/21 Artis Grewal MD [address] [place] [address] Consulting Physician Rheumatology 01/30/21 Harrison Pena RN [address] [place] [address] Asw Specialist 05/30/23 09/04/23 Nafisa Gregg, JULIUS [address] [place] [address] [address] [place] [address] Asw Specialist 06/06/23 06/12/23 Amy Mayes NP [address] [address] Nurse Practitioner Cardiovascular Disease 04/20/24 Shailesh Dunn MD [address] [address] Consulting Physician Pulmonary Disease 04/20/24 Sangita Farrar PA [address] [place] [address] Physician Potato Spotter Rheumatology 05/15/24 documented as of this encounter
--- OUTSIDE RECORDS SUMMARY | 2024-11-05 18:32 | XMS_ITS | Continuity of Care Document ---
Author Organization [facility] [place] Address [address] [place] [address] [address] [place] [address] Phone Care Team Providers Care Radio Sales Account Executive Name Role Phone Torsten Ramesh Unavailable Unavailable [...] Diagnoses Date Provider Providers Copied on Encounter [facility], [address], [place], [place], [address], [place] tel:[phone] [place] No Information 0 5 Muehl Torsten. [address] [facility], [address], [place], [address], [place]. tel: [phone] Referring Provider: Alee Elizondo, [address] [place] [address] [address], [place], [address]. tel:[phone] [facility] [address], [place], [place], [address], [place] tel:[phone] [place] No Information 0 4 Muehl Torsten. [address] [place] [address], [address], [place], [address], [place]. tel: [phone] Referring Provider: Alee Elizondo, [address] [place] [address] [address], [place], [address]. tel:[phone] [place] [address], [place], [place], [address], [place] tel:[phone] [place] No Information 0 4 Muehl Torsten. [address] [place] [address], [address], [place], [address], [place]. tel: [phone] Referring Provider: Alee Elizondo, [address] [place] [address] Road [address], [place], [address]. tel:[phone] [facility] [address], [place], [place], [address], [place] tel:[phone] [place] No Information 2 4 Muehl Torsten. [address] [place] [address], [address], [place], [address], [place]. tel: [phone] Referring Provider: Alee Elizondo, [address] [facility] [address], [place], [address]. tel:[phone] [facility], [place], [address], [place] tel:[phone] [place] No Information 4 Muehl Torsten. [address] [facility], [facility] [address], [place], [facility], . tel: [phone] Referring Provider: Alee Elizondo, [address] [place] [address] Road [address], [place], [address]. tel:[phone] [facility], [place], [address], [place] tel:[phone] [place] No Information Phill Torsten. [address] [place] [address], [address], [place], [facility], [place]. tel: [phone] Referring Provider: Alee Elizondo, [address] [place] [address] Road [address], [place], [address]. tel:[phone] [facility], [place], [address], [place] tel:[phone] [place] No Information Phill Torsten. [address] [place] [address], [address], [place], [facility], [place]. tel: [phone] Referring Provider: Alee Elizondo, [address] [place] [address] Road [address], [place], [address]. tel:[phone] [facility] [facility] [address], [place], [address], [place] tel:[phone] [place] Lumbago 4 Muehl Torsten. [address] [facility], [address], [place], [address], [place]. tel: [phone] Referring Provider: Alee Elizondo, [facility], [place], [address]. tel:[phone] Family History Family Member Type Diagnosis Age [...]
[2024-11-05] MEDS: ONDANSETRON INJ 4 MG/2 ML VIAL IV PUSH (18:47)
[2024-11-05] MEDS: MORPHINE SULFATE (*CRX) 4 MG/ML INJ IV PUSH (18:47)
[2024-11-05 18:49] VITALS: BP 126/63; PULSE 76; RESP 18; O2SAT 98
[2024-11-05 19:35] LABS: Basophils Percent Auto 0.7 % (0.2-1.2); Eosinophils Absolute Auto 0.1 K/mm3 (0-0.3); Eosinophils Percent Auto 3.1 % (0-4.4); Hematocrit 35.6 % (37.0-47.0); Hemoglobin 11.5 g/dL (12.0-15.0); Immature Granulocyte Absolute 0.02 K/mm3 (0.00-0.031); Immature Granulocyte Percent A 0.5 % (0-0.5); Lymphocytes Absolute Auto 0.99 K/mm3 (0.9-3.2); Lymphocytes Percent Auto 23.6 % (18.3-44.2); Mean Corpuscular HGB Conc 32.3 g/dl (32-36); Mean Corpuscular Hemoglobin 32.7 pg (26-34); Mean Corpuscular Volume 101.1 fl (80-100); Mean Platelet Volume 10.5 fl (7.4-10.4); Monocytes Absolute Auto 0.3 K/mm3 (0.1-0.6); Monocytes Percent Auto 6.9 % (2.6-8.5); Neutrophils Absolute Auto 2.7 K/mm3 (1.3-6.7); Neutrophils Percent Auto 65.2 % (45.5-73.1); Platelet Count Result 209 k/mm3 (150-375); Red Blood Count 3.52 M/mm3 (4.2-5.4); Red Cell Distribution Width 15.3 % (11.5-14.5); White Blood Count 4.2 K/mm3 (4.5-10.0)
[2024-11-05 19:47] LABS: Alanine Aminotransferase 35 U/L (6-35); Alkaline Phosphatase 132 U/L (38-126); Anion Gap 9 mmol/L (4-12); Aspartate Amino Transferase 44 U/L (14-36); Bilirubin,Total 0.7 mg/dL (0.2-1.3); Blood Urea Nitrogen 18 mg/dL (7-17); Calcium 9.1 mg/dL (8.4-10.2); Carbon Dioxide 24 mmol/L (22-30); Chloride 107 mmol/L (98-107); Estimated CRCL calculation 46 ml/min; Estimated Glomerular Filt Rate 54; Glucose 78 mg/dL (65-110); Lipase 21 U/L (23-300); Potassium 3.8 mmol/L (3.4-5.0); Sodium 140 mmol/L (137-145)
[2024-11-05] MEDS: SODIUM CHLORIDE 0.9% IV 1,000 ML 999 ML IV CONT (21:38)
[2024-11-05] MEDS: KETOROLAC 15 MG/ML VIAL (*BKC) IV PUSH (21:38)
[2024-11-05 22:55] VITALS: BP 112/51; PULSE 80; RESP 16; TEMP 36.7; O2SAT 94
== END 2024-11-05 23:23 | disposition home or self-care (01) ==
PROVIDERS: Physician Assistant; Emergency Provider Physician Assistant; PCP Physician Assistant
DX: N20.0 Calculus of kidney (principal); D53.9 Nutritional anemia, unspecified; R10.9 Unspecified abdominal pain; I25.10 Atherosclerotic heart disease of native coronary artery without angina pectoris; I10 Essential (primary) hypertension; J45.40 Moderate persistent asthma, uncomplicated; E78.5 Hyperlipidemia, unspecified; G47.33 Obstructive sleep apnea (adult) (pediatric); K21.9 Gastro-esophageal reflux disease without esophagitis; M19.90 Unspecified osteoarthritis, unspecified site; F32.A Depression, unspecified; Z96.652 Presence of left artificial knee joint; Z87.442 Personal history of urinary calculi; Z90.710 Acquired absence of both cervix and uterus; Z90.49 Acquired absence of other specified parts of digestive tract; Z79.899 Other long term (current) drug therapy; Z79.82 Long term (current) use of aspirin; Z79.620 Long term (current) use of immunosuppressive biologic
CPT/HCPCS: 36415; 74176; 80053; 81003; 83690; 85025; 96361; 96374; 96375; 99284; J1885; J2270; J2405; J7030

== ENCOUNTER 2024-12-01 12:09 | Emergency (ER) | payer MEDICARE, SELFPAY ==
[2024-12-01] VITALS (12 sets, daily range): BP systolic 104–126; BP diastolic 57–83; PULSE 66–88; RESP 16–20; TEMP 36.1; O2SAT 96–100
--- OUTSIDE RECORDS SUMMARY | 2024-12-01 12:12 | XMS_ITS | Clinical Summary ---
Author Organization [facility] Address [address] [facility] [place] [address] Care Team Providers Care Cook Helper Vegetable Name Role Phone Darvin Harden MD Primary Care Provider [phone] Source Comments [facility],non-owned Affiliates and Associated Physician Practices is amultiple site organization consisting of ambulatory clinics and hospital sitesin [place], [place], [place] and [place]. This disclosure is being madepursuant to the Care Everywhere program and may not contain all information available regarding this patient. 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 Gender Identity Not on file Sexual Orientation [...] age to complete this topic Insurance MEDICARE [facility] MEDICARE SELF PAY NO INSURANCE Member Subscriber Plan / Payer (Ef fective for All Dates) Name:Nohemy Lock Member ID:Not on file Relation to Subscriber:Not on file Name:NOHEMY LOCK Subscriber ID:Not on file Address: [address] [address] Payer ID:Not on file Group ID:Not on file Type:Self Pay Address: [place], [place] [facility] MEDICARE SELF PAY NO INSURANCE Member Subscriber Plan / Payer (Ef fective for All Dates) Name:Nohemy Lock Member ID:Not on file Relation to Subscriber:Not on file Name:NOHEMY LOCK Subscriber ID:Not on file Address: [address] [address] Payer ID:Not on file Group ID:Not on file Type:Self Pay Address: [place], [place] [facility] MEDICARE SELF PAY NO INSURANCE Member Subscriber Plan / Payer (Ef fective for All Dates) Name:Nohemy Lock Member ID:Not on file Relation to Subscriber:Not on file Name:NOHEMY LOCK Subscriber ID:Not on file Address: [facility] [place] [address] Payer ID:Not on file Group ID:Not on file Type:Self Pay Address: [place], [place] Care Teams Cook Helper Vegetable Relationship Specialty Start Date End Date Darvin Harden MD [address] [facility] [address] [place] [address] PCP - General 07/11/19
--- OUTSIDE RECORDS SUMMARY | 2024-12-01 12:12 | XMS_ITS | Continuity of Care Document ---
Author Organization [facility] [place] Address [address] [place] [address] [address] [place] [address] Phone Care Team Providers Care Foundry Operator Name Role Phone Torsten Ramesh Unavailable [...] Diagnoses Date Provider Providers Copied on Encounter [facility], [address], [place], [place], [address], [place] tel:[phone] [place] No Information 0 5 Muehl Torsten. [address] [facility], [address], [place], [address], [place]. tel: [phone] Referring Provider: Alee Elizondo, [address] [place] [address] [address], [place], [address]. tel:[phone] [facility] [address], [place], [place], [address], [place] tel:[phone] [place] No Information 0 4 Muehl Torsten. [address] [place] [address], [address], [place], [address], [place]. tel: [phone] Referring Provider: Alee Elizondo, [address] [place] [address] [address], [place], [address]. tel:[phone] [place] [address], [place], [place], [address], [place] tel:[phone] [place] No Information 0 4 Muehl Torsten. [address] [place] [address], [address], [place], [address], [place]. tel: [phone] Referring Provider: Alee Elizondo, [address] [place] [address] Road [address], [place], [address]. tel:[phone] [facility] [address], [place], [place], [address], [place] tel:[phone] [place] No Information 2 4 Muehl Torsten. [address] [place] [address], [address], [place], [address], [place]. tel: [phone] Referring Provider: Alee Elizondo, [address] [facility] [address], [place], [address]. tel:[phone] [facility], [place], [address], [place] tel:[phone] [place] No Information 4 Muehl Torsten. [address] [facility], [facility] [address], [place], [facility], . tel: [phone] Referring Provider: Alee Elizondo, [address] [place] [address] Road [address], [place], [address]. tel:[phone] [facility], [place], [address], [place] tel:[phone] [place] No Information Phill Torsten. [address] [place] [address], [address], [place], [facility], [place]. tel: [phone] Referring Provider: Alee Elizondo, [address] [place] [address] Road [address], [place], [address]. tel:[phone] [facility], [place], [address], [place] tel:[phone] [place] No Information Phill Torsten. [address] [place] [address], [address], [place], [facility], [place]. tel: [phone] Referring Provider: Alee Elizondo, [address] [place] [address] Road [address], [place], [address]. tel:[phone] [facility] [facility] [address], [place], [address], [place] tel:[phone] [place] Lumbago 4 Muehl Torsten. [address] [facility], [address], [address], [place]. tel: [phone] Referring Provider: Alee Elizondo, [facility] [address], [place], [address]. tel:[phone] Family History Family Member Type Diagnosis Age [...]
--- OUTSIDE RECORDS SUMMARY | 2024-12-01 12:12 | XMS_ITS | Encounter Summary ---
Author Organization [facility] Address [address] [place] [address] Care Team Providers Care Associate Java Developer Name Role Phone Sharan Linton MD Unavailable [phone] Martha Starks MD Unavailable [phone] Shama Hines MD Unavailable Artis Grewal MD Unavailable [phone] Alee Elizondo Primary Care Provider [phone] Amy Mayes NP Unavailable [phone] Shailesh Dunn MD Unavailable [phone] Sangita Farrar Unavailable [phone] Encounter Details Date Type Department Care Team (Late st Contact Info) Description 10/13/2024 Orders Only [facility] [address] [place] [address] Scanning, Provider Social History Tobacco Use Types Packs/Day Years Used Date Smoking Tobacco: Never Smokeless Tobacco: Never Comments:Never used Alcohol Use Standard Drinks/Week Comments No 0 (1 standard drink = 0.6 oz pur e alcohol) [facility] Utilities Answer Date [...] often do you attend chur ch or worship services? 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 Gender Identity Female 02/15/2020 6:08 PM CDT Sexual Orientation Not on file documented as of this encounter Plan of Treatment Not on file documented as of this encounter Procedures Procedure Name Priority Date/Time Associated Diagnosis Comments SCAN - LABS 10/13/2024 documented in this encounter Results * SCAN - LABS (10/13/2024) us Provider Scanning Final Result documented in this encounter Visit Diagnoses Not on filedocumented in this encounter Additional Health Concerns Infection Onset Date Last Indicated Resolved Time COVID: Suspected 10/23/2024 10/23/2024 10/23/2024 1:15 PM CDT documented as of this encounter Care Teams Associate Java Developer Relationship Specialty Start Date End Date Alee Elizondo PA [address] [facility] [address] [place] [address] PCP - General Internal Medicine 07/05/23 Sharan Linton MD Referring Physician Gastroenterology 10/31/18 Martha Starks MD Consulting Physician Cardiology 12/24/20 Shama Hines MD [address] [facility] [address] Consulting Physician Pain Management 01/19/21 Artis Grewal MD [address] [place] [address] Consulting Physician Rheumatology 01/30/21 Amy Mayes NP [address] [address] Nurse Practitioner Cardiovascular Disease 04/20/24 Shailesh Dunn MD [address] [facility] [address] [address] Consulting Physician Pulmonary Disease 04/20/24 Sangita Farrar PA [address] [place] [address] Physician Motion Graphics Artist Rheumatology 05/15/24 documented as of this encounter
--- OUTSIDE RECORDS SUMMARY | 2024-12-01 12:12 | XMS_ITS | Encounter Summary ---
Author Organization [facility] Healthcare Address [address] [place] [address] Care Team Providers Care Leaf Sticker Name Role Phone Sharan Linton MD Unavailable [phone] Martha Starks MD Unavailable [phone] Shama Hines MD Unavailable Artis Grewal MD Unavailable [phone] Alee Elizondo Primary Care Provider [phone] Amy Mayes NP Unavailable [phone] Shailesh Dunn MD Unavailable [phone] Sangita Farrar Unavailable [phone] Encounter Details Date Type Department Care Team (Late st Contact Info) Description 11/08/2024 Imaging Exam [facility] Medical [facility] Family Medicine [address] [facility] [address] [place] [address] Alee Elizondo PA [address] [place] [address] [place] [address] Social History Tobacco Use Types Packs/Day Years Used Date Smoking Tobacco: Never Smokeless Tobacco: Never Comments:Never used Alcohol Use Standard Drinks/Week Comments No 0 (1 standard drink = 0.6 oz pur e alcohol) [facility] Utilities Answer Date Recorded In the past 12 months has [employer] gas, oil, or water [employer] threatened to shut off services in your [...] any clubs o r organizations such as rastafarian groups, unions, fraternal or athletic groups, or [...] time in the past 12 m [facility], were you homeless or living [...] file 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 Gender Identity Female 02/15/2020 6:08 PM CDT Sexual Orientation Not on file documented as of this encounter Plan of Treatment Not on file documented as of this encounter Visit Diagnoses Not on filedocumented in this encounter Care Teams Leaf Sticker Relationship Specialty Start Date End Date Alee Elizondo PA [address] [facility] 500 [place] [address] PCP - General Internal Medicine 07/05/23 Sharan Linton MD Referring Physician Gastroenterology 10/31/18 Martha Starks MD Consulting Physician Cardiology 12/24/20 Shama Hines MD [address] [facility], [address] [address] Consulting Physician Pain Management 01/19/21 Artis Grewal MD [address] [place] [address] Consulting Physician Rheumatology 01/30/21 Amy Mayes NP [address] [address] Nurse Practitioner Cardiovascular Disease 04/20/24 Shailesh Dunn MD [address] [facility] [address] [address] Consulting Physician Pulmonary Disease 04/20/24 Sangita Farrar PA [address] [place] [address] Physician Media Analytics Manager Rheumatology 05/15/24 documented as of this encounter
--- OUTSIDE RECORDS SUMMARY | 2024-12-01 12:12 | XMS_ITS | Encounter Summary ---
Author Organization [facility] Healthcare Address [address] [place] [address] Care Team Providers Care Development Scientist Name Role Phone Sharan Linton MD Unavailable [phone] Martha Starks MD Unavailable +[phone] Shama Hines MD Unavailable Artis Grewal MD Unavailable [phone] Alee Elizondo Primary Care Provider +[phone] Amy Mayes NP Unavailable +[phone] Shailesh Dunn MD Unavailable [phone] Sangita Farrar Unavailable +[phone] Encounter Details Date Type Department Care Team (Late st Contact Info) Description 11/12/2024 Results Follow-Up [facility] Family Medicine [address] [place] [address] Alee Elizondo PA [address] [facility] [address] [facility] [address] [place] [address] Hemoglobin A1c Social History Tobacco Use Types Packs/Day Years Used Date Smoking Tobacco: Never Smokeless Tobacco: Never Comments:Never used Alcohol Use Standard Drinks/Week Comments No 0 (1 standard drink = 0.6 oz pur e alcohol) [facility] Utilities Answer Date Recorded In the past 12 months has [employer], gas, oil, or water company threatened to [...] you attend chur ch or mormon services? 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 Gender Identity Female 02/15/2020 6:08 PM CDT Sexual Orientation Not on file documented as of this encounter Plan of Treatment Not on file documented as of this encounter Visit Diagnoses Not on filedocumented in this encounter Care Teams Development Scientist Relationship Specialty Start Date End Date Alee Elizondo PA [address] [facility] 500 [place] [address] PCP - General Internal Medicine 07/05/23 Sharan Linton MD Referring Physician Gastroenterology 10/31/18 Martha Starks MD Consulting Physician Cardiology 12/24/20 Shama Hines MD 4700 [facility], [address] [address] Consulting Physician Pain Management 01/19/21 Artis Grewal MD [address] [place] [address] Consulting Physician Rheumatology 01/30/21 Amy Mayes NP [address] [address] Nurse Practitioner Cardiovascular Disease 04/20/24 Shailesh Dunn MD 4600 [facility] [address] [address] Consulting Physician Pulmonary Disease 04/20/24 Sangita Farrar PA [address] [place] [address] Physician Heel Splitter Rheumatology 05/15/24 documented as of this encounter
--- OUTSIDE RECORDS SUMMARY | 2024-12-01 12:12 | XMS_ITS | Encounter Summary ---
Author Organization [facility] Facility Care Team Providers Care Secondary School Principal Name Role Phone Alee Elizondo Primary Care Provider + [phone] Sharan Linton MD Unavailable [phone] Taisha Gomez MD Unavailable [phone] Parag Soto MD Unavailable [phone] RaziaMartha singh MD Unavailable [phone] Puneet Uribe MD Unavailable +[phone] Shama Hines MD Unavailable Artis Grewal MD Unavailable [phone] Harrison Pena RN Unavailable +[phone] Nafisa Gregg RN Unavailable [phone] Tho Kelsey MD Primary Care Provider [phone] Alee Elizondo Primary Care Provider + [phone] Amy Mayes NP Unavailable +[phone] Shailesh Dunn MD Unavailable +[phone] Sangita Farrar Unavailable +[phone] Encounter Details Date Type Department Care Team (Latest Contact Info) Description 04/19/2016 Orders Only [facility] CLINCONV Provider, MD Tania [address] [place] [address] Social History Tobacco Use Types Packs/Day Years Used Date Smoking Tobacco: Never Alcohol Use Standard Drinks/Week Comments No 0 (1 standard drink = 0.6 oz pur e alcohol) Comments Unknown Sex and Gender Information Value Date Recorded Sex Assigned at Not on file Legal Sex Female 8:04 PM VP ACCOUNT DIRECTOR Gender Identity Female 02/15/2020 6:08 PM [...] COVID: Suspected 08/13/2021 08/14/2021 08/14/2021 3:06 AM VP ACCOUNT DIRECTOR COVID: Suspected 08/14/2021 08/14/2021 08/15/2021 3:05 AM VP ACCOUNT DIRECTOR COVID: Suspected 08/14/2021 08/14/2021 08/15/2021 6:25 AM VP ACCOUNT DIRECTOR COVID: Suspected 06/02/2023 06/02/2023 06/02/2023 7:25 PM VP ACCOUNT DIRECTOR COVID: Suspected 07/26/2023 07/26/2023 07/26/2023 3:10 PM VP ACCOUNT DIRECTOR COVID: Suspected 09/25/2024 09/25/2024 09/25/2024 11:03 AM CDT Influenza, adult 09/25/2024 09/25/2024 10/02/2024 3:05 AM CDT COVID: Suspected 10/23/2024 10/23/2024 10/23/2024 1:15 PM CDT documented as of this encounter Care Teams Secondary School Principal Relationship Specialty Start Date End Date Alee Elizondo PA 10[address] [facility] 500 [place] [address] PCP - General Internal Medicine 02/01/17 06/29/23 Tho Kelsey MD [address] [place] [address] [address] [facility] [address] [place] [address] PCP - General Family Medicine 06/30/23 07/04/23 Alee Elizondo PA [address] [facility] [address] [facility] 500 [place] [address] PCP - General Internal Medicine 07/05/23 Sharan Linton MD 10[address] [facility] 500 [place] [address] Referring Physician Gastroenterology 10/31/18 Taisha Gomez MD [address] [facility] 500 [place] [address] Referring Physician Pulmonary Disease 10/31/18 12/23/20 Parag Soto MD 10[address] [facility] 500 [place] [address] Referring Physician Rheumatology 10/31/18 12/23/20 Martha Starks MD 1095 [facility] [address] [place] [address] Consulting Physician Cardiology 12/24/20 Puneet Uribe MD [address] [facility] [address] [place] [address] Consulting Physician Rheumatology 12/24/20 01/29/21 Shama Hines MD 4700 [facility], [facility] [address] [place] [address] Consulting Physician Pain Management 01/19/21 Artis Grewal MD [address] [place] [address] Consulting Physician Rheumatology 01/30/21 Harrison Pena RN [address] [place] [address] Hotel Security Officer 05/30/23 09/04/23 Nafisa Gregg, JULIUS [address] [place] [address] [address] [place] [address] Hotel Security Officer 06/06/23 06/12/23 Amy Mayes NP [address] [address] Nurse Practitioner Cardiovascular Disease 04/20/24 Shailesh Dunn MD [address] [address] Consulting Physician Pulmonary Disease 04/20/24 Sangita Farrar PA [address] [place] [address] Physician Soccer Player Rheumatology 05/15/24 documented as of this encounter
--- OUTSIDE RECORDS SUMMARY | 2024-12-01 12:12 | XMS_ITS | Continuity of Care Document ---
Author Organization [facility] Address [address] [place] [address] [place] [address] Phone Care Team Providers Care Invoicing Specialist Name Role Phone Oswald No DO Unavailable Unavailable Advance Directives Directive Yes / No Effective Date File Name No Information Encounters Encounter Description Practice Location Reason(s) For Visit Diagnoses Date Provider Providers Copied on Encounter [facility], [id number] [place] [address] [address], [place], [place], [id number], [place] tel:[phone] [facility] No Information Oneal Combs. [address] [facility], [place], [address], [place]. tel: [phone] Family History Family Member Type Diagnosis Age [...]
--- OUTSIDE RECORDS SUMMARY | 2024-12-01 12:12 | XMS_ITS | Encounter Summary ---
Author Organization [facility] Facility Care Team Providers Care Keno Attendant Name Role Phone Alee Elizondo Primary Care Provider + [phone] Sharan Linton MD Unavailable [phone] Taisha Gomez MD Unavailable [phone] Parag Soto MD Unavailable RaziaMartha singh MD Unavailable +[phone] Puneet Uribe MD Unavailable +[phone] Shama Hines MD Unavailable Artis Grewal MD Unavailable [phone] Harrison Pena RN Unavailable +[phone] Nafisa Gregg RN Unavailable +[phone] Tho Kelsey MD Primary Care Provider +[phone] Alee Elizonod Primary Care Provider + [phone] Amy Mayes NP Unavailable +[phone] Shailesh Dunn MD Unavailable +[phone] Sangita Farrar Unavailable +[phone] Encounter Details Date Type Department Care Team (Latest Contact Info) Description 03/24/2016 Orders Only [facility] CLINCONV Provider, MD Tania [address] [place] [address] Social History Tobacco Use Types Packs/Day Years Used Date Smoking Tobacco: Never Alcohol Use Standard Drinks/Week Comments No 0 (1 standard drink = 0.6 oz pur e alcohol) Comments Unknown Sex and Gender Information Value Date Recorded Sex Assigned at Not on file Legal Sex Female 8:04 PM PICKER OPERATOR Gender Identity Female 02/15/2020 6:08 PM [...] COVID: Suspected 08/13/2021 08/14/2021 08/14/2021 3:06 AM PICKER OPERATOR COVID: Suspected 08/14/2021 08/14/2021 08/15/2021 3:05 AM PICKER OPERATOR COVID: Suspected 08/14/2021 08/14/2021 08/15/2021 6:25 AM PICKER OPERATOR COVID: Suspected 06/02/2023 06/02/2023 06/02/2023 7:25 PM PICKER OPERATOR COVID: Suspected 07/26/2023 07/26/2023 07/26/2023 3:10 PM PICKER OPERATOR COVID: Suspected 09/25/2024 09/25/2024 09/25/2024 11:03 AM CDT Influenza, adult 09/25/2024 09/25/2024 10/02/2024 3:05 AM CDT COVID: Suspected 10/23/2024 10/23/2024 10/23/2024 1:15 PM CDT documented as of this encounter Care Teams Keno Attendant Relationship Specialty Start Date End Date Alee Elizondo PA 10[address] [facility] 500 [place] [address] PCP - General Internal Medicine 02/01/17 06/29/23 Tho Kelsey MD [address] [place] [address] [address] [facility] [address] [place] [address] PCP - General Family Medicine 06/30/23 07/04/23 Alee Elizondo PA [address] [facility] [address] [facility] 500 [place] [address] PCP - General Internal Medicine 07/05/23 Sharan Linton MD 1095 [facility] [address] [place] [address] Referring Physician Gastroenterology 10/31/18 Taisha Gomez MD 1095 [facility] [address] [place] [address] Referring Physician Pulmonary Disease 10/31/18 12/23/20 Parag Soto MD 1095 [facility] [address] [place] [address] Referring Physician Rheumatology 10/31/18 12/23/20 Martha Starks MD 1095 [facility] [address] [place] [address] Consulting Physician Cardiology 12/24/20 Puneet Uribe MD [address] [facility] [address] [place] [address] Consulting Physician Rheumatology 12/24/20 01/29/21 Shama Hines MD 4700 [facility], [facility] [address] [place] [address] Consulting Physician Pain Management 01/19/21 Artis Grewal MD [address] [place] [address] Consulting Physician Rheumatology 01/30/21 Harrison Pena RN [address] [place] [address] Asbestos Brake Lining Finisher Helper 05/30/23 09/04/23 Nafisa Gregg, JULIUS [address] [place] [address] [address] [place] [address] Asbestos Brake Lining Finisher Helper 06/06/23 06/12/23 Amy Mayes NP [address] [address] Nurse Practitioner Cardiovascular Disease 04/20/24 Shailesh Dunn MD [address] [address] Consulting Physician Pulmonary Disease 04/20/24 Sangita Farrar PA [address] [place] [address] Physician Early Morning Babysitter Rheumatology 05/15/24 documented as of this encounter
--- OUTSIDE RECORDS SUMMARY | 2024-12-01 12:12 | XMS_ITS | Encounter Summary ---
Author Organization [facility] Facility Care Team Providers Care Access Services Assistant Name Role Phone Alee Elizondo Primary Care Provider + [phone] Sharan Linton MD Unavailable [phone] Taisha Gomez MD Unavailable [phone] Parag Soto MD Unavailable [phone] RaziaMartha singh MD Unavailable [phone] Puneet Uribe MD Unavailable +[phone] Shama Hines MD Unavailable Artis Grewal MD Unavailable [phone] Harrison Pena RN Unavailable +[phone] Nafisa Gregg RN Unavailable +[phone] Tho Kelsey MD Primary Care Provider [phone] Alee Elizondo Primary Care Provider + [phone] Amy Mayes NP Unavailable +[phone] Shailesh Dunn MD Unavailable +[phone] Sangita Farrar Unavailable +[phone] Encounter Details Date Type Department Care Team (Latest Contact Info) Description 11/04/2015 Orders Only [facility] CLINCONV Provider, MD Tania [address] [place] [address] Social History Tobacco Use Types Packs/Day Years Used Date Smoking Tobacco: Never Assessed Comments Unknown Sex and Gender Information Value Date Recorded Sex Assigned at Not on file Legal Sex Female 8:04 PM AGRICULTURAL EXTENSION SPECIALIST Gender Identity Female 02/15/2020 6:08 PM [...] COVID: Suspected 08/13/2021 08/14/2021 08/14/2021 3:06 AM AGRICULTURAL EXTENSION SPECIALIST COVID: Suspected 08/14/2021 08/14/2021 08/15/2021 3:05 AM AGRICULTURAL EXTENSION SPECIALIST COVID: Suspected 08/14/2021 08/14/2021 08/15/2021 6:25 AM AGRICULTURAL EXTENSION SPECIALIST COVID: Suspected 06/02/2023 06/02/2023 06/02/2023 7:25 PM AGRICULTURAL EXTENSION SPECIALIST COVID: Suspected 07/26/2023 07/26/2023 07/26/2023 3:10 PM AGRICULTURAL EXTENSION SPECIALIST COVID: Suspected 09/25/2024 09/25/2024 09/25/2024 11:03 AM CDT Influenza, adult 09/25/2024 09/25/2024 10/02/2024 3:05 AM CDT COVID: Suspected 10/23/2024 10/23/2024 10/23/2024 1:15 PM CDT documented as of this encounter Care Teams Access Services Assistant Relationship Specialty Start Date End Date Alee Elizondo PA [address] [address] PCP - General Internal Medicine 02/01/17 06/29/23 Tho Kelsey MD [address] [place] [address] [address] [facility] 300 [place] [address] PCP - General Family Medicine 06/30/23 07/04/23 Alee Elizondo PA [address] [place] [address] PCP - General Internal Medicine 07/05/23 Sharan Linton MD [address] [facility] 500 [place], [place] [address] Referring Physician Gastroenterology 10/31/18 Taisha Gomez MD [address] [facility] 500 [place], [place] [address] Referring Physician Pulmonary Disease 10/31/18 12/23/20 Parag Soto MD [address] [facility] 500 [place] [address] Referring Physician Rheumatology 10/31/18 12/23/20 Martha Starks MD [address] [place], [place] [address] Consulting Physician Cardiology 12/24/20 Puneet Uribe MD [address] [facility] [address] [place] [address] Consulting Physician Rheumatology 12/24/20 01/29/21 Shama Hines MD [address] [facility], [facility] [address] [place] [address] Consulting Physician Pain Management 01/19/21 Artis Grewal MD [address] [place] [address] Consulting Physician Rheumatology 01/30/21 Harrison Pena, JULIUS [address] [place] [address] Salesforce Administrator 05/30/23 09/04/23 Nafisa Gregg, JULIUS [address] [place] [address] [facility] [address] [place] [address] Salesforce Administrator 06/06/23 06/12/23 Amy Mayes NP [address] [address] Nurse Practitioner Cardiovascular Disease 04/20/24 Shailesh Dunn MD [address] [address] Consulting Physician Pulmonary Disease 04/20/24 Sangita Farrar PA [address] [place] [address] Physician Roughener Rheumatology 05/15/24 documented as of this encounter
--- OUTSIDE RECORDS SUMMARY | 2024-12-01 12:12 | XMS_ITS | Encounter Summary ---
Author Organization [facility] Facility Care Team Providers Care Mortar Mixer Operator Name Role Phone Alee Elizondo Primary Care Provider + [phone] Sharan Linton MD Unavailable [phone] Taisha Gomez MD Unavailable +[phone] Parag Soto MD Unavailable [phone] RaziaMartha singh MD Unavailable [phone] Puneet Uribe MD Unavailable +[phone] Shama Hines MD Unavailable Artis Grewal MD Unavailable [phone] Harrison Pena RN Unavailable +[phone] Nafisa Gregg RN Unavailable [phone] Tho Kelsey MD Primary Care Provider +[phone] Alee Elizondo Primary Care Provider + [phone] Amy Mayes NP Unavailable +[phone] Shailesh Dunn MD Unavailable +[phone] Sangita Farrar Unavailable +[phone] Encounter Details Date Type Department Care Team (Latest Contact Info) Description 12/31/2015 Orders Only [facility] CLINCONV Provider, MD Tania [address] [place] [address] Social History Tobacco Use Types Packs/Day Years Used Date Smoking Tobacco: Never Alcohol Use Standard Drinks/Week Comments No 0 (1 standard drink = 0.6 oz pur e alcohol) Comments Unknown Sex and Gender Information Value Date Recorded Sex Assigned at Not on file Legal Sex Female 8:04 PM SOAP INSPECTOR Gender Identity Female 02/15/2020 6:08 PM [...] COVID: Suspected 08/13/2021 08/14/2021 08/14/2021 3:06 AM SOAP INSPECTOR COVID: Suspected 08/14/2021 08/14/2021 08/15/2021 3:05 AM SOAP INSPECTOR COVID: Suspected 08/14/2021 08/14/2021 08/15/2021 6:25 AM SOAP INSPECTOR COVID: Suspected 06/02/2023 06/02/2023 06/02/2023 7:25 PM SOAP INSPECTOR COVID: Suspected 07/26/2023 07/26/2023 07/26/2023 3:10 PM SOAP INSPECTOR COVID: Suspected 09/25/2024 09/25/2024 09/25/2024 11:03 AM CDT Influenza, adult 09/25/2024 09/25/2024 10/02/2024 3:05 AM CDT COVID: Suspected 10/23/2024 10/23/2024 10/23/2024 1:15 PM CDT documented as of this encounter Care Teams Mortar Mixer Operator Relationship Specialty Start Date End Date Alee Elizondo PA [address] [place] [address] PCP - General Internal Medicine 02/01/17 06/29/23 Tho Kelsey MD [address] [place] [address] [address] [facility] 300 [place] [address] PCP - General Family Medicine 06/30/23 07/04/23 Alee Elizondo PA 10[address] [facility] [address] [place] [address] PCP - General Internal Medicine 07/05/23 Sharan Linton MD 1095 [facility] [address] [place] [address] Referring Physician Gastroenterology 10/31/18 Taisha Gomez MD 1095 [facility] [address] [place] [address] Referring Physician Pulmonary Disease 10/31/18 12/23/20 Parag Soto MD 1095 [facility] [address] [place] [address] Referring Physician Rheumatology 10/31/18 12/23/20 Martha Starks MD 10[address] [facility] [address] [place] [address] Consulting Physician Cardiology 12/24/20 Puneet Uribe MD [address] [facility] 110 [place] [address] Consulting Physician Rheumatology 12/24/20 01/29/21 Shama Hines MD 4700 [facility], [facility] 230 [place] [address] Consulting Physician Pain Management 01/19/21 Artis Grewal MD [address] [place] [address] Consulting Physician Rheumatology 01/30/21 Harrison Pena RN [address] [place] [address] Acquisitions Librarian 05/30/23 09/04/23 Nafisa Gregg RN [address] [place] [address] 300 [place] [address] Acquisitions Librarian 06/06/23 06/12/23 Amy Mayes NP [address] [address] Nurse Practitioner Cardiovascular Disease 04/20/24 Shailesh Dunn MD [address] [address] Consulting Physician Pulmonary Disease 04/20/24 Sangita Farrar PA [address] [place] [address] Physician Payroll Associate Rheumatology 05/15/24 documented as of this encounter
--- OUTSIDE RECORDS SUMMARY | 2024-12-01 12:12 | XMS_ITS | Encounter Summary ---
Author Organization [facility] Healthcare Address [address] [place] [address] Care Team Providers Care Investigation Division Sergeant Name Role Phone Sharan Linton MD Unavailable [phone] Martha Starks MD Unavailable [phone] Shama Hines MD Unavailable Artis Grewal MD Unavailable [phone] Alee Elizondo Primary Care Provider [phone] Amy Mayes NP Unavailable [phone] Shailesh Dunn MD Unavailable [phone] Sangita Farrar Unavailable +[phone] Encounter Details Date Type Department Care Team (Late st Contact Info) Description 11/08/2024 Results Follow-Up [facility] Family Medicine [address] [facility] [address] [place] [address] Alee Elizondo PA [address] [facility] [address] [place] [address] CT Abdomen Pelvis WO Contrast Social History Tobacco Use Types Packs/Day Years [...] any time in the past 12 m [facility], were you homeless or [...] Legal Sex Female 8:04 PM PUBLIC HEALTH Gender Identity Female 02/15/2020 6:08 PM CDT Sexual Orientation Not on file documented as of this encounter Plan of Treatment Not on file documented as of this encounter Visit Diagnoses Not on filedocumented in this encounter Care Teams Investigation Division Sergeant Relationship Specialty Start Date End Date Alee Elizondo PA 1095 [facility] 500 [place] [address] PCP - General Internal Medicine 07/05/23 Sharan Linton MD Referring Physician Gastroenterology 10/31/18 Martha Starks MD Consulting Physician Cardiology 12/24/20 Shama Hines MD 4700 [facility], [address] [address] Consulting Physician Pain Management 01/19/21 Artis Grewal MD [address] [place] [address] Consulting Physician Rheumatology 01/30/21 Amy Mayes NP [address] [address] Nurse Practitioner Cardiovascular Disease 04/20/24 Shailesh Dunn MD 4600 [facility] [address] [address] Consulting Physician Pulmonary Disease 04/20/24 Sangita Farrar PA [address] [place] [address] Physician Naval Gunfire Spotter Rheumatology 05/15/24 documented as of this encounter
--- OUTSIDE RECORDS SUMMARY | 2024-12-01 12:12 | XMS_ITS | Encounter Summary ---
Author Organization [facility] Healthcare Address [address] [place] [address] Care Team Providers Care Test And Research Reactor Operator Name Role Phone Sharan Linton MD Unavailable [phone] Martha Starks MD Unavailable Shama Hines MD Unavailable Artis Grewal MD Unavailable [phone] Alee Elizondo Primary Care Provider [phone] Amy Mayes NP Unavailable Shailesh Dunn MD Unavailable [phone] Sangita Farrar Unavailable Encounter Details Date Type Department Care Team (Latest Contact Info) Description 11/12/2024 Results Follow-Up [facility] Medical Group Family Medicine [address] [place] [address] Alee Elizondo PA [address] [place] [address] Comprehensive metabolic panel, eGFR, Protein electrophoresis with reflex, serum with interpretation, Additional followed-up results: 3 Social History Tobacco Use Types Packs/Day Years Used Date Smoking Tobacco: Never Smokeless Tobacco: Never Comments:Never used Alcohol Use Standard Drinks/Week Comments No 0 (1 standard drink = 0.6 oz pur e alcohol) [facility] Utilities Answer Date Recorded In [...] medical appointments or from getting medications? 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 I am writing to discuss the results of the initial tests we completed during your recent visit and to provide guidance on the next steps needed to fully evaluate the findings, particularly concerning the possibility of an overactive parathyroid condition. Test Results: During your initial visit, several gilliam tests were carried out, and I would like to provide a detailed explanation of the results and their implications: 1. Parathyroid Hormone (PTH) Level: - Your PTH level was found to be 135, which is markedly elevated. This high level may suggest an overactive parathyroid gland (hyperparathyroidism). The parathyroid glands regulate calcium levels in the body, and increased PTH can lead to bone resorption, which, if left untreated, could result in significant loss of bone mass and osteoporosis. 2. Calcium Level: - Your calcium level was within the normal range. This is encouraging as it suggests that despite the elevated PTH, your blood calcium is still being managed properly. However, in some cases, normal calcium levels can occur in the early stages or less severe forms of hyperparathyroidism. 3. Alkaline Phosphatase: - The bone enzyme alkaline phosphatase was elevated. This enzyme is often associated with increasedbone turnover and may correlate with conditions affecting the bone, such as hyperparathyroidism. 4. Bone Marrow Proteins: - The test for abnormal bone marrow proteins was negative, which is a positive result. This means there is no indication of a condition such as multiple myeloma, which can also affect bone health. 5. Vitamin D Level: - Your vitamin D level was 47, which is within the normal range. Maintaining adequate vitamin D levels is crucial as severe deficiency can cause a false elevation in PTH levels. Explanation and Next Steps: Hyperparathyroidism often has no overt symptoms and is usually not detectable through a physical exam alone. It can lead to conditions such as osteoporosis by causing calcium to be released from yourbones into your bloodstream, thereby weakening the bones over time. Therefore, we must conduct further testing to understand the full impact on your bone health and potential kidney involvement. To determine if your kidneys are eliminating excess calcium (a common consequence of hyperparathyroidism), we recommend a 24-hour urine collection. This test will help us evaluate the amount of calcium being passed in your urine and provide additional information on the impact of elevated PTH levels. Action Plan: 1. 24-Hour Urine Collection: - You can either come back to our lab for this test or arrange it through your primary office with the assistance of JACQUI Elizondo. I will ensure that JACQUI Elizondo has all the necessary information to coordinate this. 2. Continued Monitoring and Follow-up: - It is important to continue monitoring your bone health and ensure that all necessary treatments and precautions are taken to manage your osteoporosis effectively. Next Steps in Treatment: Once we have evaluated and stabilized the potential overactive parathyroid condition, the next priority will be to address the low bone mass. This involves ensuring that your bone health is optimizedand any underlying causes are managed effectively. When we are confident that everything is stable,we will proceed with the Reclast treatment as we discussed. Given the three-year treatment pause you have had, we can restart a three-year series of infusions. However, this will only occur after we complete the necessary work-up described above. Summary of Medical History and Treatment: You presented with a history of rheumatoid arthritis (RA), osteopenia confirmed by external DXA scans, and stomach ulcers attributed to Fosamax use. You experienced side effects from previous osteoporosis treatments including Prolia (insurance issues) and Forteo (leg cramps, indigestion). Previous treatments with Reclast were administered on 03/28/2019, 07/09/2020, and 07/2021. Your current osteoporosis management reveals a severe degree of bone density reduction. Past DEXA scans demonstrate a consistent pattern of osteoporosis with T-scores ranging from -2.2 at the lumbar spine to -2.7 at the femoral neck. Based on these findings, continuing treatment with Reclast may beadvantageous. Reclast offers considerable promise in increasing bone density and reducing fracture risk. Our approach includes periodic IV infusions, dental health maintenance, and balanced intake ofcalcium and vitamin D. We aim to establish a well-rounded plan to manage your bone health and any related conditions efficiently. If you have any questions or need further clarification, please do not hesitate to reach out. Warm regards, Abisai Martinez M.D. Bone Health Program Division of Bone and Mineral Disease [Contact Information] documented in this encounter Plan of Treatment Not on file documented as of this encounter Visit Diagnoses Not on filedocumented in this encounter Care Teams Test And Research Reactor Operator Relationship Specialty Start Date End Date Alee Elizondo PA [address] [facility] [address] [place] [address] PCP - General Internal Medicine 07/05/23 Sharan Linton MD Referring Physician Gastroenterology 10/31/18 Martha Starks MD Consulting Physician Cardiology 12/24/20 Shama Hines MD [address] [facility] [address] [address] Consulting Physician Pain Management 01/19/21 Artis Grewal MD [address] [place], [place] [address] Consulting Physician Rheumatology 01/30/21 Amy Mayes NP [address] [address] Nurse Practitioner Cardiovascular Disease 04/20/24 Shailesh Dunn MD [address] [address] Consulting Physician Pulmonary Disease 04/20/24 Sangita Farrar PA [address] [place] [address] Physician Saddle Lining Stitcher Rheumatology 05/15/24 documented as of this encounter
--- OUTSIDE RECORDS SUMMARY | 2024-12-01 12:12 | XMS_ITS | Encounter Summary ---
Author Organization [facility] Healthcare Address [address] [place] [address] Care Team Providers Care Biophysics Scientist Name Role Phone Sharan Linton MD Unavailable Martha Starks MD Unavailable [phone] Shama Hines MD Unavailable Artis Grewal MD Unavailable [phone] Alee Elizondo Primary Care Provider [phone] Amy Mayes NP Unavailable [phone] Shailesh Dunn MD Unavailable [phone] Sangita Farrar Unavailable [phone] Encounter Details Date Type Department Care Team (Late st Contact Info) Description 10/12/2024 Results Follow-Up [facility] Medical Group Family Medicine [address] [place] [address] Alee Elizondo PA [address] [place] [address] SCAN - LABS Social History Tobacco Use Types Packs/Day Years Used Date Smoking Tobacco: Never Smokeless Tobacco: Never Comments:Never used Alcohol Use Standard Drinks/Week Comments No 0 (1 standard drink = 0.6 oz pur e alcohol) [facility] Utilities Answer Date Recorded In the past 12 months has e [employer], gas, oil, or water company threatened to [...] time in the past 12 m [facility], were you homeless or living in a [...] on file 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 Gender Identity Female 02/15/2020 6:08 PM CDT [...] documented as of this encounter Care Teams Biophysics Scientist Relationship Specialty Start Date End Date Alee Elizondo PA [address] [facility] [address] [place] [address] PCP - General Internal Medicine 07/05/23 Sharan Linton MD Referring Physician Gastroenterology 10/31/18 Martha Starks MD Consulting Physician Cardiology 12/24/20 Shama Hines MD [address] [facility] [address] [place] [address] Consulting Physician Pain Management 01/19/21 Artis Grewal MD [address] [place] [address] Consulting Physician Rheumatology 01/30/21 Amy Mayes NP [address] [facility] [address] [place] [address] Nurse Practitioner Cardiovascular Disease 04/20/24 Shailesh Dunn MD 46[address] [facility] [address] [place] [address] Consulting Physician Pulmonary Disease 04/20/24 Sangita Farrar PA [address] [place] [address] Physician Powertrain Design Engineer Rheumatology 05/15/24 documented as of this encounter
--- OUTSIDE RECORDS SUMMARY | 2024-12-01 12:12 | XMS_ITS | Encounter Summary ---
Author Organization [facility] Facility Care Team Providers Care Teletypewriter Installer Name Role Phone Alee Elizondo Primary Care Provider + [phone] Sharan Linton MD Unavailable [phone] Taisha Gomez MD Unavailable [phone] Parag Soto MD Unavailable [phone] RaziaMartha singh MD Unavailable [phone] Puneet Uribe MD Unavailable [phone] Shama Hines MD Unavailable Artis Grewal MD Unavailable [phone] Harrison Pena RN Unavailable [phone] Nafisa Gregg RN Unavailable Tho Kelsey MD Primary Care Provider [phone] Alee Elizondo Primary Care Provider + [phone] Amy Mayes NP Unavailable [phone] Shailesh Dunn MD Unavailable [phone] Sangita Farrar Unavailable [phone] Encounter Details Date Type Department Care Team (Latest Contact Info) Description 09/29/2015 Orders Only [facility] CLINCONV Provider, MD Tania [address] [place] [address] Social History Tobacco Use Types Packs/Day Years Used Date Smoking Tobacco: Never Assessed Comments Unknown Sex and Gender Information Value Date Recorded Sex Assigned at Not on file Legal Sex Female 8:04 PM 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 Gender Identity Female 02/15/2020 6:08 PM [...] COVID: Suspected 08/13/2021 08/14/2021 08/14/2021 3:06 AM SHEAR 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 COVID: Suspected 08/14/2021 08/14/2021 08/15/2021 3:05 AM SHEAR 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 COVID: Suspected 08/14/2021 08/14/2021 08/15/2021 6:25 AM SHEAR 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 COVID: Suspected 06/02/2023 06/02/2023 06/02/2023 7:25 PM SHEAR 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 COVID: Suspected 07/26/2023 07/26/2023 07/26/2023 3:10 PM SHEAR 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 COVID: Suspected 09/25/2024 09/25/2024 09/25/2024 11:03 AM CDT Influenza, adult 09/25/2024 09/25/2024 10/02/2024 3:05 AM CDT COVID: Suspected 10/23/2024 10/23/2024 10/23/2024 1:15 PM CDT documented as of this encounter Care Teams Teletypewriter Installer Relationship Specialty Start Date End Date Alee Elizondo PA [address] [address] PCP - General Internal Medicine 02/01/17 06/29/23 Tho Kelsey MD [address] [place] [address] [address] [facility] [address] [place] [address] PCP - General Family Medicine 06/30/23 07/04/23 Alee Elizondo PA [address] [place] [address] PCP - General Internal Medicine 07/05/23 Sharan Linton MD [address] [facility] [address] [place], [place] [address] Referring Physician Gastroenterology 10/31/18 Taisha Gomez MD [address] [facility] [address] [place], [place] [address] Referring Physician Pulmonary Disease 10/31/18 12/23/20 Parag Soto MD [address] [facility] [address] [place] [address] Referring Physician Rheumatology 10/31/18 12/23/20 Martha Starks MD [address] [place], [place] [address] Consulting Physician Cardiology 12/24/20 Puneet Uribe MD [address] [facility] [address] [place] [address] Consulting Physician Rheumatology 12/24/20 01/29/21 Shama Hines MD 47[address] [facility] [address] [place] [address] Consulting Physician Pain Management 01/19/21 Artis Grewal MD [address] [place] [address] Consulting Physician Rheumatology 01/30/21 Harrison Pena, JULIUS [address] [place] [address] School Bus Driver 05/30/23 09/04/23 Nafisa Gregg, JULIUS [address] [place] [address] [facility] [address] [place] [address] School Bus Driver 06/06/23 06/12/23 Amy Mayes NP [address] [address] Nurse Practitioner Cardiovascular Disease 04/20/24 Shailesh Dunn MD [address] [address] Consulting Physician Pulmonary Disease 04/20/24 Sangita Farrar PA [address] [place] [address] Physician Compounder Rheumatology 05/15/24 documented as of this encounter
--- OUTSIDE RECORDS SUMMARY | 2024-12-01 12:12 | XMS_ITS | Encounter Summary ---
Author Organization [facility] Address [address] [place] [address] Phone Care Team Providers Care Center Director Name Role Phone Sharan Linton MD Unavailable [phone] Martha Starks MD Unavailable [phone] Shama Hines MD Unavailable Artis Grewal MD Unavailable [phone] Alee Elizondo Primary Care Provider [phone] Amy Mayes NP Unavailable [phone] Shailesh Dunn MD Unavailable [phone] Sangita Farrar Unavailable [phone] Encounter Details Date Type Department Care Team (Late st Contact Info) Description 11/21/2024 Results Follow-Up [facility] [address] [place] [address] Sangita Farrar PA [address] [place] [address] CBC with auto differential, Differential, auto Social History Tobacco Use Types Packs/Day Years Used Date Smoking Tobacco: Never Smokeless Tobacco: Never Comments:Never used Alcohol Use Standard Drinks/Week Comments No 0 (1 standard drink = 0.6 oz pur e alcohol) [facility] Utilities Answer Date Recorded In the past 12 months has th e electric, gas, oil, or water [employer] threatened to shut off services in your [...] you have a drink containing alcohol? Never 11/22/2024 Q2: How many drinks containi ng alcohol do you have on a typical day when you are drinking? Patient does not drink Q3: How often do you have si x or more drinks on one occasion? Never 11/22/2024 Overall Financial Resource Strain (CARDIA) Answe r Date Recorded How hard is it for you to pa y for the very basics like food, housing, medical care, and heating? 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 Never 11/22/2024 7:14 AM DUT Yovana Camacho LPN Q2: How many drinks containing alcohol do you have on a typical day when you are drinking? Patient does not drink 11/22/2024 7:14 AM DUT Yovana Camacho LPN Q3: How often do you have six or more drinks on one occasion? Never 11/22/2024 7:14 AM CDT Doug, Yovana, ACCOUNTS PAYABLE SPECIALIST documented as of this encounter Plan of Treatment Not on file documented as of this encounter Visit Diagnoses Not on filedocumented in this encounter Care Teams Center Director Relationship Specialty Start Date End Date Alee Elizondo PA [address] [facility] [address] [place] [address] PCP - General Internal Medicine 07/05/23 Sharan Linton MD Referring Physician Gastroenterology 10/31/18 Martha Starks MD Consulting Physician Cardiology 12/24/20 Shama Hines MD [address] [facility] [address] [place] [address] Consulting Physician Pain Management 01/19/21 Artis Grewal MD [address] [place] [address] Consulting Physician Rheumatology 01/30/21 Amy Mayes NP [address] [facility] 102 [place] [address] Nurse Practitioner Cardiovascular Disease 04/20/24 Shailesh Dunn MD [address] [facility] 200 [place] [address] Consulting Physician Pulmonary Disease 04/20/24 Sangita Farrar PA [address] [place] [address] Physician Production Ski Repairer Rheumatology 05/15/24 documented as of this encounter
--- OUTSIDE RECORDS SUMMARY | 2024-12-01 12:13 | XMS_ITS | Encounter Summary ---
Author Organization [facility] Facility Care Team Providers Care Vice President Biostatistics Name Role Phone Alee Elizondo Primary Care Provider + [phone] Sharan Linton MD Unavailable [phone] Taisha Gomez MD Unavailable [phone] Parag Soto MD Unavailable [phone] RaziaMartha singh MD Unavailable [phone] Puneet Uribe MD Unavailable [phone] Shama Hines MD Unavailable Artis Grewal MD Unavailable [phone] Harrison Pena RN Unavailable [phone] Nafisa Gregg RN Unavailable [phone] Tho Kelsey MD Primary Care Provider [phone] Alee Elizondo Primary Care Provider + [phone] Amy Mayes NP Unavailable [phone] Shailesh Dunn MD Unavailable [phone] Sangita Farrar Unavailable [phone] Encounter Details Date Type Department Care Team (Latest Contact Info) Description 01/08/2017 Orders Only [facility] CLINCONV Provider, MD Tania [address] [place] [address] Social History Tobacco Use Types Packs/Day Years Used Date Smoking Tobacco: Never Alcohol Use Standard Drinks/Week Comments No 0 (1 standard drink = 0.6 oz pur e alcohol) Comments Unknown Sex and Gender Information Value Date Recorded Sex Assigned at Not on file Legal Sex Female 8:04 PM TELEPHONE OPERATOR RECEPTIONIST Gender Identity Female 02/15/2020 6:08 PM CDT [...] COVID: Suspected 08/13/2021 08/14/2021 08/14/2021 3:06 AM TELEPHONE OPERATOR RECEPTIONIST COVID: Suspected 08/14/2021 08/14/2021 08/15/2021 3:05 AM TELEPHONE OPERATOR RECEPTIONIST COVID: Suspected 08/14/2021 08/14/2021 08/15/2021 6:25 AM TELEPHONE OPERATOR RECEPTIONIST COVID: Suspected 06/02/2023 06/02/2023 06/02/2023 7:25 PM TELEPHONE OPERATOR RECEPTIONIST COVID: Suspected 07/26/2023 07/26/2023 07/26/2023 3:10 PM TELEPHONE OPERATOR RECEPTIONIST COVID: Suspected 09/25/2024 09/25/2024 09/25/2024 11:03 AM CDT Influenza, adult 09/25/2024 09/25/2024 10/02/2024 3:05 AM CDT COVID: Suspected 10/23/2024 10/23/2024 10/23/2024 1:15 PM CDT documented as of this encounter Care Teams Vice President Biostatistics Relationship Specialty Start Date End Date Alee Elizondo PA [address] [facility] 500 [place] [address] PCP - General Internal Medicine 02/01/17 06/29/23 Tho Kelsey MD [address] [place] [address] [address] [facility] [address] [place] [address] PCP - General Family Medicine 06/30/23 07/04/23 Alee Elizondo PA [address] [facility] [address] [facility] [address] [place] [address] PCP - General Internal Medicine 07/05/23 Sharan Linton MD [address] [facility] [address] [place] [address] Referring Physician Gastroenterology 10/31/18 Taisha Gomez MD [address] [facility] [address] [place] [address] Referring Physician Pulmonary Disease 10/31/18 12/23/20 Parag Soto MD [address] [facility] [address] [place] [address] Referring Physician Rheumatology 10/31/18 12/23/20 Martha Starks MD [address] [facility] [address] [place] [address] Consulting Physician Cardiology 12/24/20 Puneet Uribe MD [address] [facility] [address] [place] [address] Consulting Physician Rheumatology 12/24/20 01/29/21 Shama Hines MD 4700 [facility], [facility] 230 [place] [address] Consulting Physician Pain Management 01/19/21 Artis Grewal MD [address] [place] [address] Consulting Physician Rheumatology 01/30/21 Harrison Pena RN [address] [place] [address] Brim Stretcher 05/30/23 09/04/23 Nafisa Gregg, JULIUS [address] [place] [address] [address] [place] [address] Brim Stretcher 06/06/23 06/12/23 Amy Mayes NP [address] [address] Nurse Practitioner Cardiovascular Disease 04/20/24 Shailesh Dunn MD [address] [address] Consulting Physician Pulmonary Disease 04/20/24 Sangita Farrar PA [address] [place] [address] Physician Associate Veterinarian Rheumatology 05/15/24 documented as of this encounter
--- OUTSIDE RECORDS SUMMARY | 2024-12-01 12:13 | XMS_ITS | Encounter Summary ---
Author Organization [facility] Facility Care Team Providers Care Cable Strander Name Role Phone Alee Elizondo Primary Care Provider + [phone] Sharan Linton MD Unavailable [phone] Taisha Gomez MD Unavailable [phone] Parag Soto MD Unavailable [phone] RaziaMartha singh MD Unavailable [phone] Puneet Uribe MD Unavailable [phone] Shama Hines MD Unavailable Artis rGewal MD Unavailable [phone] Harrison Pena RN Unavailable [phone] Nafisa Gregg RN Unavailable +[phone] Tho Kelsey MD Primary Care Provider [phone] Alee Elizondo Primary Care Provider + [phone] Amy Mayes NP Unavailable [phone] Shailesh Dunn MD Unavailable [phone] Sangita Farrar Unavailable +[phone] Encounter Details Date Type Department Care Team (Latest Contact Info) Description 10/15/2016 Orders Only [facility]INCON[facility] Provider, MD Tania [address] [place] [id number] Social History Tobacco Use Types Packs/Day Years Used Date Smoking Tobacco: Never Alcohol Use Standard Drinks/Week Comments No 0 (1 standard drink = 0.6 oz pur e alcohol) Comments Unknown Sex and Gender Information Value Date Recorded Sex Assigned at Not on file Legal 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 Gender Identity Female 02/15/2020 6:08 PM CDT [...] COVID: Suspected 08/13/2021 08/14/2021 08/14/2021 3:06 AM MANAGER TECHNOLOGY COVID: Suspected 08/14/2021 08/14/2021 08/15/2021 3:05 AM MANAGER TECHNOLOGY COVID: Suspected 08/14/2021 08/14/2021 08/15/2021 6:25 AM MANAGER TECHNOLOGY COVID: Suspected 06/02/2023 06/02/2023 06/02/2023 7:25 PM MANAGER TECHNOLOGY COVID: Suspected 07/26/2023 07/26/2023 07/26/2023 3:10 PM MANAGER TECHNOLOGY COVID: Suspected 09/25/2024 09/25/2024 09/25/2024 11:03 AM CDT Influenza, adult 09/25/2024 09/25/2024 10/02/2024 3:05 AM CDT COVID: Suspected 10/23/2024 10/23/2024 10/23/2024 1:15 PM CDT documented as of this encounter Care Teams Cable Strander Relationship Specialty Start Date End Date Alee Elizondo PA [address] [facility] [address] [place] [address] PCP - General Internal Medicine 02/01/17 06/29/23 Tho Kelsey MD [address] [place] [address] [address] [facility] [address] [place] [address] PCP - General Family Medicine 06/30/23 07/04/23 Alee Elizondo PA [address] [facility] [address] [facility] [address] [place] [address] PCP - General Internal Medicine 07/05/23 Sharan Linton MD [address] [facility] [address] [place] [address] Referring Physician Gastroenterology 10/31/18 Taisha Gomez MD [address] [facility] [address] [place] [address] Referring Physician Pulmonary Disease 10/31/18 12/23/20 Parag Soto MD [address] [facility] [address] [place] [address] Referring Physician Rheumatology 10/31/18 12/23/20 Martha Starks MD [address] [facility] [address] [place] [address] Consulting Physician Cardiology 12/24/20 Puneet Uribe MD [address] [facility] [address] [place] [address] Consulting Physician Rheumatology 12/24/20 01/29/21 Shama Hines MD [address] [facility], [facility] [address] [place] [address] Consulting Physician Pain Management 01/19/21 Artis Grewal MD [address] [place] [address] Consulting Physician Rheumatology 01/30/21 Harrison Pena RN [address] [place] [address] Lens Grinding 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 05/30/23 09/04/23 Nafisa Gregg, JULIUS [address] [place] [address] [address] [place] [address] Lens Grinding 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 06/06/23 06/12/23 Amy Mayes NP [address] [address] Nurse Practitioner Cardiovascular Disease 04/20/24 Shailesh Dunn MD [address] [address] Consulting Physician Pulmonary Disease 04/20/24 Sangita Farrar PA [address] [place] [address] Physician Film Developing 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 Rheumatology 05/15/24 documented as of this encounter
--- OUTSIDE RECORDS SUMMARY | 2024-12-01 12:13 | XMS_ITS | Clinical Summary ---
Author Organization [facility] [address] Address [address] [place] [address] Care Team Providers Care Supercharger Repair Supervisor Name Role Phone Sharan Linton MD Unavailable [phone] Martha Starks MD Unavailable [phone] Shama Hines MD Unavailable Artis Grewal MD Unavailable Alee Elizondo Primary Care Provider [phone] Amy Mayes NP Unavailable Shailesh Dunn MD Unavailable [phone] Sangita Farrar Unavailable Allergies Active Allergy Reactions Criticality Noted Date Comments Teriparatide Other (See comments) Low 09/06/2023 PT STATES IT CAUSES LEG CRAMPS AND INDIGESTION Meperidine Hives Medium 09/09/2016 Penicillins Hives Medium Medications cholecalciferol (VITAMIN D-3) 5,000 unit capsule Take 1 capsule (5,000 Units total) by mouth daily with dinner Active clobetasoL (CLOBEX) 0.05 % lotion Apply 1 application topically 2 (two) times a day as needed (to the scalp) 020 Active docusate sodium (COLACE) 100 mg capsuleIndication s:constipation Take 2 capsules (200 mg total) by mouth 2 (two) times a day Active ketoconazole (NIZORAL) 2 % shampoo WASH [...] One tablet daily 30 capsule 025 Active Additional Information Patient not taking.Reported on 11/22/2024 hydroxychloroquin e (PLAQUENIL) 200 mg tabletIndications :Seropositive [...] mouth nightly 90 tablet 1 025 Active gabapentin (NEURONTIN) 100 mg capsule [...] EVERY DAY 48 mL 4 025 Active Linzess 290 mcg capsule Take 1 capsule (290 mcg total) by mouth daily 90 capsule 1 025 Active meloxicam (MOBIC) 15 mg tabletIndications :Chronic pain of both knees TAKE 1/2 TABLET (7.5 MG TOTAL) BY MOUTH DAILY AT 9 AM 15 tablet [address] (CYMBALTA) 60 mg capsuleIndication s:Moderate episode of recurrent major depressive disorder (HCC) TAKE ONE CAPSULE (60MG TOTAL) BY MOUTH DAILY AT 9 AM 90 capsule 11 025 Active calcium carbonate-vitamin D3 600 mg(1,500mg) -400 unit capsule otc 0 011 2024 Discontinued cetirizine (ZyrTEC) 10 mg tabletIndications :Sinus congestion Take 1 tablet (10 mg total) by mouth daily 30 tablet 11 022 2024 Discontinued Linzess 290 mcg capsule Take 1 capsule (290 mcg total) by mouth daily 022 2024 Discontinued(R eorder) folic acid (FOLVITE) 1 mg tablet Take 2 tablets (2,000 mcg total) by mouth daily 180 tablet 1 024 2024 Discontinued sulfaSALAzine (AZULFIDINE) 500 mg tablet Take 1 tablet (500 mg total) by mouth 2 (two) times a day 60 tablet 025 2024 Discontinued folic acid (FOLVITE) 1 mg tablet Take 2 tablets (2,000 mcg total) by mouth daily 180 tablet 1 025 2024 Discontinued meloxicam (MOBIC) 15 mg tabletIndications :Chronic pain of both knees Take 0.5 tablets (7.5 mg total) by mouth daily 15 tablet 2 025 2024 Discontinued mecobalamin (B12 ACTIVE ORAL) Take by mouth 2024 Discontinued benzonatate (TESSALON) 200 mg capsuleIndication s:Influenza A,Acute cough Take 1 capsule (200 mg total) by mouth 3 (three) times a day as needed for cough 30 capsule [address] (CYMBALTA) 60 mg capsuleIndication s:Moderate episode of recurrent major depressive disorder (HCC) Take 1 capsule (60 mg total) by mouth daily 90 capsule 025 2024 Discontinued doxycycline (VIBRAMYCIN) 100 mg capsuleIndication s:Acute non-recurrent sinusitis, unspecified location Take 1 tablet/capsule (100 mg total) by mouth 2 (two) times a day for 10 days 20 tablet/caps ule 025 2024 Active Problems Patient Care Coordination No te Formatting of this note migh t be different from the original. CAD for BIC Problem Noted Date Diagnosed Date BMI 35.0-35.9,adult 11/22/2024 Assessment & Plan (11/22/2024 7:17 AM CDT): Discussed the patient's BMI. The BMI is above average. BMI management plan is completed. BMI Follow-up includes: nutrition counseling, exercise counseling and education provided. Urinary retention 11/22/2024 Anemia 11/22/2024 Annual physical exam 10/09/2024 Assessment & Plan (10/22/2024 1:07 PM CDT): Encouraged healthy lifestyle, good nutrition and exercise. Encouraged Calcium and Vitamin D and weight bearing exercise for bone health. Reviewed immunizations Reviewed age appropirate screenings. Pelvic pain 10/30/2023 Assessment & Plan (10/30/2023 11:44 PM CDT): Patient has a large pelvic lipomatosis. She has had evaluation by Urology at [facility] and has been told there is probably [...] prescribed. Assessment & Plan (08/07/2023 7:55 PM MOLECULAR GENETIC PATHOLOGIST): Persistent sinusitis symptoms along with cough. Will start doxy b.i.d.. Start antihistamine (Claritin OR Zyrtec), Mucinex 12hour and Steroid nasal spray (Flonase). Push fluids. Rest. Supportive care. If sxs worsen or don\'t improve, pt is to followup in the office. Morbid obesity 08/03/2023 Assessment & Plan (11/22/2024 7:17 AM CDT): Discussed the patient's BMI. The BMI is above average. BMI management plan is completed. BMI Follow-up includes: nutrition counseling, exercise counseling and education provided. Assessment & Plan (10/23/2024 1:06 PM CDT): [...] provided. Assessment & Plan (05/07/2024 8:56 PM MOLECULAR GENETIC PATHOLOGIST): Discussed the patient's BMI. The BMI is [...] provided. Assessment & Plan (09/06/2023 9:38 AM MOLECULAR GENETIC PATHOLOGIST): Discussed the patient's BMI. The BMI is above average. BMI management plan is completed. BMI Follow-up includes: nutrition counseling, exercise counseling and education provided. Patient has an obesity-related condition (not limited to: hypertension, obstructive sleep apnea, osteoarthritis, hyperlipidemia, diabetes, etc.). Therefore, morbid obesity may be documented for patients with a BMI between 35.00-39.99. Assessment & Plan (08/07/2023 7:51 PM MOLECULAR GENETIC PATHOLOGIST): Discussed the patient's BMI. The BMI is above average. BMI management plan is completed. BMI Follow-up includes: nutrition counseling, exercise counseling and education provided. Patient has an obesity-related condition (not limited to: hypertension, obstructive sleep apnea, osteoarthritis, hyperlipidemia, diabetes, etc.). Therefore, morbid obesity may be documented for patients with a BMI between 35.00-39.99. Assessment & Plan (08/03/2023 7:45 AM MOLECULAR GENETIC PATHOLOGIST): Discussed the patient's BMI. The BMI is above average. BMI management plan is completed. BMI Follow-up includes: nutrition counseling, exercise counseling and education provided. Primary osteoarthritis of right knee 07/08/2023 Assessment & Plan (05/07/2024 8:56 PM MOLECULAR GENETIC PATHOLOGIST): Patient has arthritis in the right knee. Planning a total knee replacement with Dr. Alexus Motta on May 30 Assessment & Plan (08/03/2023 8:28 AM MOLECULAR GENETIC PATHOLOGIST): Continue per ortho. She is seeing some improvement but it is difficult to know if the knee is rheumatoid versus osteo versus other etiology. Will await recommendations from JACQUI Raya but definitely encouraged her to become active as soon as possible. Status post total knee replacement using cement, right 05/19/2023 Assessment & Plan (06/02/2023 4:56 PM MOLECULAR GENETIC PATHOLOGIST): Status post total knee replacement with Dr. Ge Sexton 04 May. She has just been released from rehab following up for her TCM visit. She appears to have an area of cellulitis at the incision site. She is also complaining of increased pain. Will check CBC CMP and inflammatory markers along with an x-ray. She plans to go to [facility] for the workup. 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 Assessment & Plan (09/06/2023 9:41 AM MOLECULAR GENETIC PATHOLOGIST): Medications are managed by [facility] for her rheumatoid arthritis Assessment & Plan (04/06/2023 7:44 PM CDT): Managed by [facility]. Currently on Plaquenil methotrexate Orencia folic [...] She has had evaluation by Urology at [facility] and has been told there is probably [...] capacity. Assessment & Plan (09/06/2023 9:41 AM MOLECULAR GENETIC PATHOLOGIST): Continue per . She did not tolerate [...] Pate. Assessment & Plan (07/18/2022 10:20 AM MOLECULAR GENETIC PATHOLOGIST): CT revealed pelvic lipomatosis that is compressing [...] 02/11/2022 Assessment & Plan (09/06/2023 9:41 AM MOLECULAR GENETIC PATHOLOGIST): No change. Dysfunction of both eustachian tubes 02/11/2022 Myalgia, lower leg 01/11/2022 PLMD (periodic limb movement disorder) Assessment & Plan (11/06/2024 9:20 AM CDT): The patient is unaware that her limbs are moving at night when she sleeps. Assessment & Plan (08/02/2024 11:49 AM MOLECULAR GENETIC PATHOLOGIST): Asymptomatic Assessment & Plan (06/22/2022 10:31 AM MOLECULAR GENETIC PATHOLOGIST): Will continue Requip 1 mg nightly Assessment [...] bedtime. Assessment & Plan (07/13/2021 11:25 AM MOLECULAR GENETIC PATHOLOGIST): Due to the patient stating that she [...] for medication monitoring 06/04/2020 Assessment & Plan (11/21/2024 10:33 AM CDT): Hepatitis negative 06/2020 Tspot negative 06/2020 Continue routine lab monitoring Maintain routine eye exams throughout the duration of taking hydroxychloroquine Assessment & Plan (08/23/2024 10:16 AM MOLECULAR GENETIC PATHOLOGIST): Hepatitis negative 06/2020 Tspot negative 06/2020 Continue routine lab monitoring Maintain routine eye exams throughout the duration of taking hydroxychloroquine Assessment & Plan (07/30/2024 8:24 AM MOLECULAR GENETIC PATHOLOGIST): Hepatitis negative 06/2020 Tspot negative 06/2020 Continue [...] hydroxychloroquine Assessment & Plan (09/01/2023 8:34 AM MOLECULAR GENETIC PATHOLOGIST): Hepatitis negative 06/2020 Tspot negative 06/2020 Continue routine lab monitoring Maintain routine eye exams throughout the duration of taking hydroxychloroquine Assessment & Plan (06/29/2023 2:19 PM MOLECULAR GENETIC PATHOLOGIST): Hepatitis negative 06/2020 Tspot negative 06/2020 Continue [...] hydroxychloroquine Assessment & Plan (07/14/2022 2:58 PM MOLECULAR GENETIC PATHOLOGIST): Hepatitis negative 06/2020 Tspot negative 06/2020 Continue routine lab monitoring Maintain routine eye exams throughout the duration of taking hydroxychloroquine Assessment & Plan (06/03/2022 9:58 AM MOLECULAR GENETIC PATHOLOGIST): Hepatitis negative 06/2020 Tspot negative 06/2020 Continue [...] hydroxychloroquine Assessment & Plan (09/03/2021 8:29 AM MOLECULAR GENETIC PATHOLOGIST): Hepatitis negative 06/2020 Tspot negative 06/2020 Continue routine lab monitoring Maintain routine eye exams throughout the duration of taking hydroxychloroquine Assessment & Plan (06/03/2021 4:17 PM MOLECULAR GENETIC PATHOLOGIST): Hepatitis negative 06/2020 Tspot negative 06/2020 Continue [...] hydroxychloroquine Assessment & Plan (09/02/2020 1:16 PM MOLECULAR GENETIC PATHOLOGIST): Hepatitis negative 06/2020 Tspot negative 06/2020 Continue routine lab monitoring Maintain routine eye exams throughout the duration of taking hydroxychloroquine Assessment & Plan (07/09/2020 12:23 PM MOLECULAR GENETIC PATHOLOGIST): Hepatitis negative 06/2020 Tspot negative 06/2020 Continue [...] 08/13/2019 Assessment & Plan (05/07/2024 8:54 PM MOLECULAR GENETIC PATHOLOGIST): Patient with chronic constipation. Has been on [...] linzess Assessment & Plan (08/13/2019 8:57 AM MOLECULAR GENETIC PATHOLOGIST): On [employer] with Dr. Soto Herpes zoster [...] diabetes. Assessment & Plan (05/07/2024 8:55 PM MOLECULAR GENETIC PATHOLOGIST): Pre-diabetes/hyperglycemia is a precursor to Dm. Stressed [...] diabetes. Assessment & Plan (09/06/2023 9:40 AM MOLECULAR GENETIC PATHOLOGIST): Pre-diabetes/hyperglycemia is a precursor to Dm. Stressed [...] diabetes. Assessment & Plan (09/11/2021 11:22 PM MOLECULAR GENETIC PATHOLOGIST): Pre-diabetes/hyperglycemia is a precursor to Dm. Stressed importance of working on diet (decrease your simple sugars and one carbohydrate with each meal) and increase you exercise to achieve weight loss and this will help prevent you from progressing to diabetes. Assessment & Plan (05/29/2021 8:18 PM MOLECULAR GENETIC PATHOLOGIST): Pre-diabetes/hyperglycemia is a precursor to Dm. Stressed [...] diabetes. Assessment & Plan (08/31/2020 9:34 AM MOLECULAR GENETIC PATHOLOGIST): Pre-diabetes is a precursor to Dm. Stressed [...] diabetes. Assessment & Plan (08/13/2019 9:00 AM MOLECULAR GENETIC PATHOLOGIST): This is a significant, separately identifiable problem [...] b.I.d. Assessment & Plan (05/07/2024 8:54 PM MOLECULAR GENETIC PATHOLOGIST): Depression symptoms are stable with Wellbutrin XL 150 Cymbalta 60 b.i.d. Assessment & Plan (04/21/2024 8:50 PM CDT): Depression symptoms are stable with the Wellbutrin XL 150 and Cymbalta 60 b.i.d. Assessment & Plan (01/22/2024 8:11 PM CDT): Depression symptoms are stable with Wellbutrin and Cymbalta Assessment & Plan (09/06/2023 9:40 AM MOLECULAR GENETIC PATHOLOGIST): Depression is stable with Wellbutrin and Cymbalta Assessment & Plan (08/03/2023 8:31 AM MOLECULAR GENETIC PATHOLOGIST): Stable with Cymbalta 60 and Wellbutrin XL [...] Cymbalta Assessment & Plan (09/11/2021 11:26 PM MOLECULAR GENETIC PATHOLOGIST): Continue Wellbutrin and Cymbalta Assessment & Plan (05/29/2021 8:22 PM MOLECULAR GENETIC PATHOLOGIST): Continue Wellbutrin and Cymbalta Assessment & Plan (05/24/2021 10:39 AM MOLECULAR GENETIC PATHOLOGIST): Continue Wellbutrin and Cymbalta Assessment & Plan (12/24/2020 9:07 AM CDT): Continue wellbutrin and cymbalta Assessment & Plan (08/31/2020 9:35 AM MOLECULAR GENETIC PATHOLOGIST): Continue wellbutrin and cymbalta Assessment & Plan (02/18/2020 9:47 PM CDT): Stable with the Cymbalata Assessment & Plan (08/13/2019 8:59 AM MOLECULAR GENETIC PATHOLOGIST): Stable with Cymbalta and Wellbutrin Assessment & [...] regimen. Med list updated to reflect the [id number] one daily and Prozac 40mg. Mixed hyperlipidemia 03/29/2018 Assessment & Plan (10/22/2024 1:06 PM CDT): Encouraged patient to follow low fat/low chol diet like the Mediterranean diet. Increase good fats in the diet. Increase exercise. Monitor labs as needed. Continue Crestor 10 Assessment & Plan (05/07/2024 8:54 PM MOLECULAR GENETIC PATHOLOGIST): Encouraged patient to follow low fat/low chol [...] statin Assessment & Plan (09/06/2023 9:42 AM MOLECULAR GENETIC PATHOLOGIST): Encouraged patient to follow low fat/low chol [...] statin Assessment & Plan (09/11/2021 11:26 PM MOLECULAR GENETIC PATHOLOGIST): Encouraged patient to follow low fat/low chol diet like the Mediterranean diet. Increase good fats in the diet. Increase exercise. Monitor labs as needed. Continue statin Assessment & Plan (05/29/2021 8:22 PM MOLECULAR GENETIC PATHOLOGIST): Encouraged patient to follow fat/low chol diet like the Mediterranean diet. Increase good fats in the diet. Increase exercise. Monitor labs as needed. Continue statin Assessment & Plan (05/24/2021 10:39 AM MOLECULAR GENETIC PATHOLOGIST): Encouraged patient to follow fat/low chol diet like the Mediterranean diet. Increase good fats in the diet. Increase exercise. Monitor labs as needed. Continue statin Assessment & Plan (12/24/2020 9:07 AM CDT): Encouraged patient to follow fat/low chol diet like the Mediterranean diet. Increase good fats in the diet. Increase exercise. Monitor labs as needed. Continue statin Assessment & Plan (08/31/2020 9:34 AM MOLECULAR GENETIC PATHOLOGIST): Encouraged patient to follow fat/low chol diet like the Mediterranean diet. Increase good fats in the diet. Increase exercise. Monitor labs as needed. Continue statin Assessment & Plan (02/18/2020 9:46 PM CDT): Encouraged patient to continue low fat/low chol diet. Continue exercise. Increase good fats in the diet. Monitor labs as needed. Assessment & Plan (08/13/2019 8:59 AM MOLECULAR GENETIC PATHOLOGIST): Encouraged patient to continue low fat/low chol [...] future Assessment & Plan (09/06/2023 9:40 AM MOLECULAR GENETIC PATHOLOGIST): Continue PPI Assessment & Plan (04/06/2023 7:36 PM CDT): Continue PPI p.r.n. Assessment & Plan (01/20/2023 8:13 PM CDT): Continue PPI Assessment & Plan (09/12/2022 6:13 PM CDT): Continue PPI p.r.n. Assessment & Plan (06/03/2022 3:40 PM MOLECULAR GENETIC PATHOLOGIST): Pyrosis poorly controlled on Nexium. Pt has [...] PPI Assessment & Plan (09/11/2021 11:26 PM MOLECULAR GENETIC PATHOLOGIST): Continue PPI Assessment & Plan (12/24/2020 9:05 AM CDT): Continue PPI Assessment & Plan (02/18/2020 9:45 PM CDT): Continue PPI. Saw Dr. Linton for increased GERD sxs. If persist, encouraged to followup again with Dr. Linton. Assessment & Plan (08/13/2019 8:58 AM MOLECULAR GENETIC PATHOLOGIST): Stable with PPI Assessment & Plan (04/29/2019 [...] exertion) Assessment & Plan (06/22/2022 10:30 AM MOLECULAR GENETIC PATHOLOGIST): Patient is not currently using inhalers. She [...] OWEN on CPAP 10/14/2015 Assessment & Plan (11/06/2024 9:20 AM CDT): The patient continue to wear her CPAP at auto titrating range of 7-20 cm water pressure while sleeping. Her DME is [facility]. I have sent an order over to [facility] due to her changing insurances. Assessment & Plan (10/22/2024 1:05 PM CDT): Managed by Dr. Dunn. Continue CPAP Assessment & Plan (08/02/2024 11:49 AM MOLECULAR GENETIC PATHOLOGIST): Due to the patient stating the pressure [...] readjusted. She denied need for supplies. DME [facility] Assessment & Plan (05/07/2024 8:55 PM MOLECULAR GENETIC PATHOLOGIST): Continue with CPAP. Assessment & Plan (04/21/2024 8:49 PM CDT): Continue per Dr. Dunn. Has all her needed supplies for CPAP which she is using every night. Continue with Requip 0.5 mg HS for restless leg Assessment & Plan (01/22/2024 8:08 PM CDT): Continue CPAP per Dr. Dunn Assessment & Plan (09/06/2023 9:40 AM MOLECULAR GENETIC PATHOLOGIST): Continue CPAP Assessment & Plan (06/21/2023 10:14 AM MOLECULAR GENETIC PATHOLOGIST): Patient continue to wear her CPAP at [...] CPAP Assessment & Plan (06/22/2022 10:31 AM MOLECULAR GENETIC PATHOLOGIST): Will continue CPAP therapy at an auto titrating range of 7-20 cm water pressure. Denied need for supplies. DME [facility] patient Assessment & Plan (05/02/2022 9:15 PM [...] pressure. Patient denied need for supplies. DME [employer] [facility]. Patient is benefitting CPAP Assessment & Plan (09/11/2021 11:22 PM MOLECULAR GENETIC PATHOLOGIST): Continue CPAP. Patient has all needed supplies. Assessment & Plan (07/13/2021 11:27 AM MOLECULAR GENETIC PATHOLOGIST): Due to the patient stating she does not have enough pressure in her machine, I have increased the pressure to 13 cm water pressure. The patient denied need for for supplies. [facility] [employer] [facility]. Have also ordered a new smart card set at 13 cm water pressure. Benefitting from CPAP therapy Assessment & Plan (05/29/2021 8:14 PM MOLECULAR GENETIC PATHOLOGIST): Continue CPAP. Assessment & Plan (02/17/2021 11:09 AM CDT): The patient continues to be compliant with her CPAP at 8 cm water pressure. She has developed worsening daytime hypersomnia. She also has morning headaches and dry mouth. I have recommended proceeding with a CPAP titration study starting at 8 cm water pressure. Her DME is [facility]. Assessment & Plan (12/24/2020 9:04 AM CDT): Continue CPAP. Would like to see Pulm[facility]sleep at [facility] alireza as difficulty getting in consistently at [facility] and most of her care is now [facility] Assessment & Plan (02/18/2020 9:44 PM CDT): Continue CPAP Assessment & Plan (08/13/2019 8:46 AM MOLECULAR GENETIC PATHOLOGIST): Using the CPAP. Has equipment as needed. [...] compartment. Chondrocalcinosis is noted. Assessment & Plan (11/21/2024 10:31 AM CDT): 02/2021 XR L knee with mild to moderate OA, now s/p B TKA. Following with ortho as planned. Assessment & Plan (08/23/2024 10:16 AM MOLECULAR GENETIC PATHOLOGIST): 02/2021 XR L knee with mild to moderate OA, now s/p B TKA. Following with ortho as planned. Assessment & Plan (07/30/2024 11:23 AM MOLECULAR GENETIC PATHOLOGIST): 02/2021 XR L knee with mild to [...] March. Assessment & Plan (09/01/2023 3:42 PM MOLECULAR GENETIC PATHOLOGIST): 02/2021 XR L knee with mild to moderate OA, R knee negative. Had injections with ortho without benefit, now s/p L TKA. Assessment & Plan (06/30/2023 12:46 PM MOLECULAR GENETIC PATHOLOGIST): 02/2021 XR L knee with mild to [...] g/d. Assessment & Plan (07/15/2022 1:41 PM MOLECULAR GENETIC PATHOLOGIST): 02/2021 XR L knee with mild to moderate OA, R knee negative. Had injections with ortho with benefit. Unable to afford PT. Can continue Tylenol Arthritis, not to exceed 4 g/d. Assessment & Plan (06/03/2022 9:58 AM MOLECULAR GENETIC PATHOLOGIST): 02/2021 XR L knee with mild to [...] evaluation. Assessment & Plan (09/03/2021 11:27 AM MOLECULAR GENETIC PATHOLOGIST): XR L knee with mild to moderate [...] able. Assessment & Plan (06/04/2021 10:27 AM MOLECULAR GENETIC PATHOLOGIST): XR L knee with mild to moderate [...] above. Assessment & Plan (09/03/2020 12:23 PM MOLECULAR GENETIC PATHOLOGIST): 10/27/2017 XR L knee: mild tricompartmental OA. Will continue meloxicam as above. Assessment & Plan (07/09/2020 12:24 PM MOLECULAR GENETIC PATHOLOGIST): 10/27/2017 XR L knee: mild tricompartmental OA. [...] fascia since previous examination. Assessment & Plan (11/21/2024 12:46 PM CDT): Feels and appears notably improved since resuming Orencia. Will continue Orencia SQ weekly with methotrexate 20 mg weekly, folic acid 2 mg daily, and hydroxychloroquine 200 mg BID and monitor. CMP reviewed, CBC today. Follow up in 3-4 months or sooner as needed. Assessment & Plan (10/22/2024 1:04 PM CDT): Continue per [facility]. Continue Plaquenil methotrexate Orencia folic acid Mobic gabapentin. Assessment & Plan (08/23/2024 12:54 PM MOLECULAR GENETIC PATHOLOGIST): Moderate cdai with report of increasing pain, [...] needed. Assessment & Plan (07/30/2024 11:22 AM MOLECULAR GENETIC PATHOLOGIST): Moderate cdai with report of increased morning [...] with labs near her home ([facility] in [place]), but the following month will need to plan for an in person visit. She expressed understanding and agreement with this plan. Continue methotrexate 20 mg weekly, folic acid 2 mg daily, and hydroxychloroquine 200 mg BID. Labs today as below. Assessment & Plan (05/07/2024 8:55 PM MOLECULAR GENETIC PATHOLOGIST): Managed by [facility]. Currently on Plaquenil and methotrexate and Orencia folic acid Mobic and gabapentin. Stressed she needs to be in contact with her pastor on when and which medicines to stop for the surgery. Assessment & Plan (04/21/2024 8:49 PM CDT): Continue per [facility]. They currently manage her rheumatoid [...] Plan (01/22/2024 8:17 PM CDT): Continue per [facility] as they manage her condition. Assessment & Plan (11/24/2023 9:58 AM CDT): Low cdai without inflammatory sounding pain. Will continue methotrexate 20 mg weekly, folic acid 2 mg daily, hydroxychloroquine 200 mg BID, and Orencia and monitor. Labs today as below. Follow up in 3 months or sooner as needed. Assessment & Plan (09/06/2023 9:42 AM MOLECULAR GENETIC PATHOLOGIST): Rheumatoid arthritis is managed by [facility]. Currently on Plaquenil methotrexate Orencia and folic acid Assessment & Plan (09/01/2023 3:39 PM MOLECULAR GENETIC PATHOLOGIST): Overall stable without notable synovitis and no inflammatory sounding pain. Will continue methotrexate 20 mg weekly, folic acid 2 mg daily, hydroxychloroquine 200 mg BID, and Orencia and monitor. Labs today as below. Follow up in 3 months or sooner as needed. Assessment & Plan (08/03/2023 8:28 AM MOLECULAR GENETIC PATHOLOGIST): Continue with rheumatology. Assessment & Plan (06/30/2023 12:43 PM MOLECULAR GENETIC PATHOLOGIST): Overall stable without notable synovitis and no inflammatory sounding pain. Will continue methotrexate 20 mg weekly, folic acid 2 mg daily, hydroxychloroquine 200 mg BID, and Orencia and monitor. Labs today as below. Assessment & Plan (06/02/2023 4:49 PM MOLECULAR GENETIC PATHOLOGIST): Continue per Rheumatology Assessment & Plan (04/06/2023 7:35 PM CDT): Continue per Rheumatology. She has been in discussion with them on what medications to stop prior to her knee surgery. She states she was told to take all of her medicines accept the Orencia. Assessment & Plan (01/20/2023 8:12 PM CDT): Continue per Rheumatology [facility] Assessment & Plan (01/13/2023 3:42 [...] Plan (09/12/2022 6:06 PM CDT): Continue with [facility] Assessment & Plan (07/15/2022 1:41 PM MOLECULAR GENETIC PATHOLOGIST): Low cdai. Significantly improved after IM triamcinolone [...] needed. Assessment & Plan (06/03/2022 3:37 PM MOLECULAR GENETIC PATHOLOGIST): High cdai. Previously felt well controlled with current regimen. Due to burden of disease will give patient a triamcinolone injection. Patient made aware of SE of steroids including but not limited to HTN, increased blood glucose, cataracts, glaucoma, AVN, and osteoporosis with long term care social worker use. Should she flare again shortly after [...] (01/23/2022 4:57 PM CDT): Continue management per [facility] Assessment & Plan (12/07/2021 9:02 AM CDT): Low cdai. Denies inflammatory sounding joint pain. Continue methotrexate 25 mg weekly, folic acid to 2 mg daily, Rinvoq 15 mg daily, hydroxychloroquine 200 mg BID, and cyclobenzaprine 5 mg qhs and monitor. Labs today as below. Plan for follow up in 3 months or sooner as needed. Assessment & Plan (09/11/2021 11:14 PM MOLECULAR GENETIC PATHOLOGIST): Continue per [facility] Assessment & Plan (09/03/2021 11:25 AM MOLECULAR GENETIC PATHOLOGIST): cdai = 12. Pt suspects increased joint [...] needed. Assessment & Plan (06/04/2021 10:25 AM MOLECULAR GENETIC PATHOLOGIST): Low cdai. Denies inflammatory sounding pain at present. Will plan to continue methotrexate 25 mg weekly, folic acid to 2 mg daily, Rinvoq 15 mg daily, hydroxychloroquine 200 mg BID, and cyclobenzaprine 5 mg qhs and monitor. Labs today as below. Plan for follow up in 3 months or sooner as needed. Assessment & Plan (05/31/2021 9:15 PM MOLECULAR GENETIC PATHOLOGIST): Continue per Rheumatology Assessment & Plan (05/29/2021 8:13 PM MOLECULAR GENETIC PATHOLOGIST): Continue per Rheumatology. Currently on Plaquenil methotrexate and folic acid. Assessment & Plan (05/24/2021 10:38 AM MOLECULAR GENETIC PATHOLOGIST): Continue per Rheumatology Assessment & Plan (03/05/2021 [...] needed. Assessment & Plan (09/03/2020 12:22 PM MOLECULAR GENETIC PATHOLOGIST): Low cdai. Continues to feel improved with [...] needed. Assessment & Plan (08/31/2020 9:34 AM MOLECULAR GENETIC PATHOLOGIST): Continue per [facility] Rheum Assessment & Plan (07/09/2020 12:22 PM MOLECULAR GENETIC PATHOLOGIST): 64yoF with a h/o seropositive RA diagnosed [...] time. Assessment & Plan (06/04/2020 11:14 AM MOLECULAR GENETIC PATHOLOGIST): 64yoF with a h/o seropositive RA diagnosed [...] needed. Assessment & Plan (05/14/2020 9:33 PM MOLECULAR GENETIC PATHOLOGIST): Refer to new [employer] as Dr. Soto has . Assessment & Plan (02/18/2020 9:46 PM CDT): Continue per Rheum Assessment & Plan (08/13/2019 8:59 AM MOLECULAR GENETIC PATHOLOGIST): Continue per Dr. Soto Assessment & Plan (04/29/2019 4:31 PM CDT): Continue per Dr. Soto Assessment & Plan (11/01/2018 10:58 PM CDT): Dr. Soto increased the MTX and decreased the steroid. Pt can see improvement. Continue per Rheum. Gastrointestinal hemorrhage 11/17/2013 Overview (10/07/2016): GI bleeding Age-related osteoporosis wit hout current pathological fracture 11/17/2013 Overview (11/08/2024): OSTEOPOROSIS NOS 01/27/2021 DEXA: Lspine -1.8, L [...] hip improved, R hip worse by 10.8% Bone Health Evaluation 11/2024 Long history of reduced BMD as per above. The treatment history is: Fosamax- caused her stomach ulcers Prolia 1 or 2 doses - insurance didn't cover it Forteo- did not tolerate caused her leg cramps and indigestion Reclast 03/28/2019, 07/09/2020, 07/2021 Pause [id number] Restart ZOL 11/25 Assessment & Plan (11/08/2024 12:17 PM CDT): Severe Osteoporosis Based on the circumstances of this case, the degree of osteoporosis is severe. The patient is at high risk for fracture. Due to this, we will turn to the available FDA-approved treatment choices indicated at this time. Oral bisphosphonates are the first line for osteoporosis, but in this case, these agents will not provide maximum benefit due to the high risk for fracture. The only available options in this circumstance include zoledronic acid, denosumab, romosozumab, teriparatide, and abaloparatide. Given the history I feel continuation of ZOL holds the most promise. Zoledronic acid After reviewing options, zolendronic acid has had the most promise to achieve improvement. I reviewed again how this is an IV infusion once a year. Also, I discussed that this could have side effects. Body aches and flu-like symptoms are most common with the first dose but usually do not recur. A more severe problem is hypocalcemia. I again reviewed the importance of calcium intake and vitamin D to prevent this. The patient will contact us if any concern or question arises. Next, we discussed the rare cases of MRONJ. Maintaining good dental health is a priority while on this treatment. If there is any concern, I want to speak to the treating dentist. Next is the matter of oversupression and the development of the AFF. This can be idiosyncratic but often results from many years of continuous treatment. Our program has adopted the method referred to as d rug holidays. This lets the standard remodeling cycle resume and resorption to remove older and damaged areas. It is a balance, but we still see substantial increases in bone density. At this point, we will plan for 1-3 years of infusions, seeing the patient back each year and reassessing before each dose. Finally, we will periodically check the renal function, calcium levels, and vitamin D preceding each infusion. We also reviewed diet and with the constipation I asked her to add 5 dried prunes per day. Working on balance and strength building exercise also advised Assessment & Plan (10/22/2024 1:05 PM CDT): Patient is awaiting recommendations from the bone metabolism group at [facility] Dr. Martinez. Appointment is scheduled in November. Has been on Reclast and Forteo. She also continues with vitamin-D Assessment & Plan (01/22/2024 8:08 PM CDT): Patient with osteoporosis. Has not been responding to Reclast. Forteo was tried by [facility] and she could not tolerate. [...] of her osteoporosis, recommended evaluation by the [facility], unfortunately their first available appt was in November 2024. Recommended today that she check with [facility] Osteoporosis center (at [facility]) to see how far out they are scheduling new patients, though she does not like this option due to distance from her house. Assessment & Plan (09/06/2023 9:40 AM MOLECULAR GENETIC PATHOLOGIST): Managed by [facility]. Per patient they are making a referral to bone metabolism at [facility] she has not seen significant improvement with the Forteo or the Reclast. Assessment & Plan (09/01/2023 3:43 PM MOLECULAR GENETIC PATHOLOGIST): DEXA: Lspine BMD 0.809 Tscore -2.2, L [...] of her osteoporosis, recommend evaluation by the [facility], provided contact info for Dr. Castillo. Pt in agreement with plan. Assessment & Plan (06/30/2023 12:49 PM MOLECULAR GENETIC PATHOLOGIST): DEXA: Lspine BMD 0.809 Tscore -2.2, L [...] PM CDT): Continue to monitor. Managed by [facility]. Patient is on Reclast calcium vitamin-D [...] exercise Assessment & Plan (07/15/2022 1:42 PM MOLECULAR GENETIC PATHOLOGIST): 01/27/2021 DEXA: Lspine -1.8, L femoral neck -1.9, L total hip -1.2, R femoral neck -2.3, R total hip -1.0, FRAX major 32% and hip 7%. Received Reclast 07/2021. Continue yearly Reclast, scheduled for 07/22 Assessment & Plan (06/03/2022 3:38 PM MOLECULAR GENETIC PATHOLOGIST): 01/27/2021 DEXA: Lspine -1.8, L femoral neck [...] Plan (01/23/2022 5:02 PM CDT): Managed by [facility] currently on Reclast calcium and vitamin-D Assessment & Plan (12/07/2021 9:04 AM CDT): 01/27/2021 DEXA: Lspine -1.8, L femoral neck -1.9, L total hip -1.2, R femoral neck -2.3, R total hip -1.0, FRAX major 32% and hip 7%. Received Reclast 07/2021. Continue yearly Reclast. Assessment & Plan (09/03/2021 11:26 AM MOLECULAR GENETIC PATHOLOGIST): 01/27/2021 DEXA: Lspine -1.8, L femoral neck -1.9, L total hip -1.2, R femoral neck -2.3, R total hip -1.0, FRAX major 32% and hip 7%. Received Reclast 07/2021. Continue yearly reclast and daily vitamin D-calcium supplement. Assessment & Plan (06/04/2021 10:27 AM MOLECULAR GENETIC PATHOLOGIST): 01/27/2021 DEXA: Lspine -1.8, L femoral neck [...] Center Assessment & Plan (09/03/2020 12:23 PM MOLECULAR GENETIC PATHOLOGIST): Vitamin D level was 68. Received Reclast 07/09/2020. Last DEXA per available records was 01/31/2019, due this summer. Assessment & Plan (07/09/2020 12:23 PM MOLECULAR GENETIC PATHOLOGIST): Overdue for Reclast, last infusion was 03/28/2019, will receive infusion today. Vitamin D level was 68 Last DEXA per available records was 01/31/2019 Assessment & Plan (06/04/2020 11:15 AM MOLECULAR GENETIC PATHOLOGIST): Overdue for Reclast, last infusion was 03/28/2019, will check benefits. Recheck vitamin D level now. Last DEXA per available records was 01/31/2019 Assessment & Plan (02/18/2020 9:46 PM CDT): Calcium, vit D and exercise. Continue to monitor DXA Assessment & Plan (08/13/2019 8:58 AM MOLECULAR GENETIC PATHOLOGIST): Continue with Calcium, Vit D and Exercise. Recheck DXA iin Fall 2019 with mammogram Resolved Problems Problem Noted Date Diagnosed Date Resolved Date Encounter for pre-operative examination 05/07/2024 10/09/2024 Assessment & Plan (05/07/2024 8:57 PM MOLECULAR GENETIC PATHOLOGIST): I have examined this patient and ordered [...] Krishnamurthy. 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 Daniels Stressed importance of very close follow-up BMI 37.0-37.9, adult 09/06/2023 024 Assessment & Plan (10/13/2023 7:38 AM CDT): Discussed the patient's BMI. The BMI is above average. BMI management plan is completed. BMI Follow-up includes: nutrition counseling, exercise counseling and education provided. Assessment & Plan (09/06/2023 9:42 AM MOLECULAR GENETIC PATHOLOGIST): Discussed the patient's BMI. The BMI is above average. BMI management plan is completed. BMI Follow-up includes: nutrition counseling, exercise counseling and education provided. Hyperglycemia 09/06/2023 09/06/2023 Positive depression screening 09/06/2023 09/06/2023 Annual physical exam 09/06/2023 024 Assessment & Plan (09/06/2023 9:43 AM MOLECULAR GENETIC PATHOLOGIST): Encouraged healthy lifestyle, good nutrition and exercise. Encouraged Calcium and Vitamin D and weight bearing exercise for bone health. Reviewed immunizations Reviewed age appropirate screenings. Orthopedic aftercare 08/09/2023 Right knee pain 08/09/2023 09/06/2023 Sinus congestion 08/07/2023 09/06/2023 Assessment & Plan (08/07/2023 7:54 PM MOLECULAR GENETIC PATHOLOGIST): Persistent sinusitis symptoms along with cough. Will start doxy b.i.d.. Start antihistamine (Claritin OR Zyrtec), Mucinex 12hour and Steroid nasal spray (Flonase). Push fluids. Rest. Supportive care. If sxs worsen or don\'t improve, pt is to followup in the office. BMI 35.0-35.9,adult 08/03/2023 09/06/19 24 Assessment & Plan (08/07/2023 7:51 PM MOLECULAR GENETIC PATHOLOGIST): Discussed the patient's BMI. The BMI is above average. BMI management plan is completed. BMI Follow-up includes: nutrition counseling, exercise counseling and education provided. Assessment & Plan (08/03/2023 8:29 AM MOLECULAR GENETIC PATHOLOGIST): Discussed the patient's BMI. The BMI is [...] 01/22/2024 Assessment & Plan (06/02/2023 4:57 PM MOLECULAR GENETIC PATHOLOGIST): Later in the day received critical lab call for a CO2 value at 42. My staff contacted the patient and she was instructed to go to the ER for further evaluation to determine underlying cause. She states throughout the day she has noticed a little bit more shortness of breath. [facility] Charge nurse was notified of the [...] surgery. Will defer cardiac clearance to her greens keeper. Her chronic medical conditions are stable. [facility] as instructed her to hold the [...] counseling, exercise counseling and education provided. BMI 34.0-34.9,adult 04/06/2023 11/23/19 25 Assessment & Plan (10/23/2024 1:06 PM CDT): [...] provided. Assessment & Plan (06/02/2023 8:27 AM MOLECULAR GENETIC PATHOLOGIST): Discussed the patients BMI: The BMI is [...] Dr. Ge Sexton on May [address] [facility]. Need for vaccination for Strep [...] BMI between 35.00-39.99. BMI 40.0-44.9, adult 12/21/2022 Assessment & Plan (12/21/2022 8:02 AM CDT): [...] symptoms worsen or do not respond to [id number] allergy medicines within the next week she [...] provided. Assessment & Plan (08/23/2022 2:19 PM MOLECULAR GENETIC PATHOLOGIST): Discussed the patient's BMI. The BMI is [...] plans Assessment & Plan (07/18/2022 10:20 AM MOLECULAR GENETIC PATHOLOGIST): CT revealed pelvic lipomatosis that is compressing [...] 12/20/2022 Assessment & Plan (07/18/2022 10:21 AM MOLECULAR GENETIC PATHOLOGIST): CT revealed pelvic lipomatosis that is compressing [...] plan, Assessment & Plan (07/08/2022 12:33 PM MOLECULAR GENETIC PATHOLOGIST): Patient has had dysuria. She was started [...] STAT abd/pelvis with and without contrast at [facility]. Check labs STAT. Acute right flank pain 07/08/202204/06 Assessment & Plan (07/18/2022 10:21 AM MOLECULAR GENETIC PATHOLOGIST): CT revealed pelvic lipomatosis that is compressing [...] plan, Assessment & Plan (07/08/2022 5:58 PM MOLECULAR GENETIC PATHOLOGIST): Images from the original note were not [...] STAT abd/pelvis with and without contrast at [facility]. Check labs STAT. STAT CT Abd/pelvis without [...] 09/06/2023 Assessment & Plan (07/08/2022 12:33 PM MOLECULAR GENETIC PATHOLOGIST): Patient has had dysuria. She was started [...] STAT abd/pelvis with and without contrast at [facility]. Check labs STAT. Assessment & Plan (07/06/2022 8:50 AM MOLECULAR GENETIC PATHOLOGIST): Pt presents with dysuria. Urine dip completed. [...] 35.00-39.99. Assessment & Plan (07/18/2022 10:23 AM MOLECULAR GENETIC PATHOLOGIST): Discussed the patient's BMI. The BMI is above average. BMI management plan is completed. BMI Follow-up includes: nutrition counseling, exercise counseling and education provided. Assessment & Plan (07/08/2022 12:30 PM MOLECULAR GENETIC PATHOLOGIST): Discussed the patient's BMI. The BMI is [...] She has received multiple injections from her pastor regarding her knee but yesterday when she [...] 01/23/2022 Assessment & Plan (09/11/2021 11:28 PM MOLECULAR GENETIC PATHOLOGIST): Patient has never had a full skin exam. She has quite a few lesions scattered and would benefit from a full exam. Will make referral Annual physical exam 09/11/2021 Assessment & Plan (09/11/2021 11:28 PM MOLECULAR GENETIC PATHOLOGIST): Encouraged healthy lifestyle, good nutrition and exercise. Encouraged Calcium and Vitamin D and weight bearing exercise for bone health. Reviewed immunizations Reviewed age appropirate screenings. Cough 08/13/2021 01/23/2022 Assessment & Plan (08/13/2021 3:43 PM MOLECULAR GENETIC PATHOLOGIST): Patient to presume positive COVID/FLU until results are available and plan to self isolate for up to 10 days from the onset of sxs. Check COVID/FLU test thru [facility] collection site in [place]. Let pt know the newest CDC recommendations [...] future. Assessment & Plan (07/13/2021 11:28 AM MOLECULAR GENETIC PATHOLOGIST): I have ordered the patient Claritin 10 [...] provided. Assessment & Plan (09/11/2021 11:27 PM MOLECULAR GENETIC PATHOLOGIST): Obesity is unchanged. Discussed the patient's BMI. The BMI is above average. BMI management plan is completed. BMI Follow-up includes: nutrition counseling, exercise counseling and education provided. Assessment & Plan (05/29/2021 8:24 PM MOLECULAR GENETIC PATHOLOGIST): Obesity is unchanged. Discussed the patient's BMI. The BMI is above average. BMI management plan is completed. BMI Follow-up includes: nutrition counseling, exercise counseling and education provided. Assessment & Plan (05/12/2021 1:26 PM MOLECULAR GENETIC PATHOLOGIST): Obesity is unchanged. Discussed the patient's BMI. The BMI is above average. BMI management plan is completed. BMI Follow-up includes: nutrition counseling, exercise counseling and education provided. BMI 37.0-37.9, adult 05/12/2021 022 Assessment & Plan (09/11/2021 11:27 PM MOLECULAR GENETIC PATHOLOGIST): Obesity is unchanged. Discussed the patient's BMI. The BMI is above average. BMI management plan is completed. BMI Follow-up includes: nutrition counseling, exercise counseling and education provided. Assessment & Plan (05/29/2021 8:24 PM MOLECULAR GENETIC PATHOLOGIST): Obesity is unchanged. Discussed the patient's BMI. The BMI is above average. BMI management plan is completed. BMI Follow-up includes: nutrition counseling, exercise counseling and education provided. Assessment & Plan (05/12/2021 1:26 PM MOLECULAR GENETIC PATHOLOGIST): Obesity is unchanged. Discussed the patient's BMI. The BMI is above average. BMI management plan is completed. BMI Follow-up includes: nutrition counseling, exercise counseling and education provided. Tinea corporis 04/14/2021 01/23/2022 Assessment & Plan (05/31/2021 9:15 PM MOLECULAR GENETIC PATHOLOGIST): Improving with Lotrisone. Keep the area clean and dry Assessment & Plan (05/29/2021 8:24 PM MOLECULAR GENETIC PATHOLOGIST): Lotrisone to pharmacy. Encouraged her to keep the area clean and dry use her dryer to dry the skin before applying the cream. She is to call if symptoms worsen or do not resolve. Need for immunization against influenza 04/14/2021 05/31/2021 Assessment & Plan (05/29/2021 8:24 PM MOLECULAR GENETIC PATHOLOGIST): Fluid updated in the office Medicare annual wellness visit, subsequent 04/13/2021 05/31/2021 Assessment & Plan (05/29/2021 8:23 PM MOLECULAR GENETIC PATHOLOGIST): Encouraged healthy lifestyle, good nutrition and exercise. [...] 12/30/2020 Assessment & Plan (08/31/2020 9:31 AM MOLECULAR GENETIC PATHOLOGIST): Error. This should be right calf but PT order sent and corrected so unable to remove. Fatigue 08/31/2020 09/06/2023 Assessment & Plan (04/06/2023 7:43 PM CDT): Probably multifactorial. Check labs and followup to re-evaluate Assessment & Plan (05/02/2022 9:16 PM CDT): Probably multifactorial. Check labs and followup to re-evaluate Assessment & Plan (08/31/2020 9:34 AM MOLECULAR GENETIC PATHOLOGIST): Probably multifactorial. Check labs and followup to re-evaluate Pain in both lower extremities 08/31/2020 09/06/2023 Assessment & Plan (09/01/2023 3:41 PM MOLECULAR GENETIC PATHOLOGIST): Cramping lower leg pain has resolved with [...] 021 Assessment & Plan (08/31/2020 9:33 AM MOLECULAR GENETIC PATHOLOGIST): Obesity is unchanged. Discussed the patient's BMI. The BMI is above average. BMI management plan is completed. BMI Follow-up includes: nutrition counseling, exercise counseling and education provided. Pain of right calf 08/26/2020 Assessment & Plan (08/31/2020 9:31 AM MOLECULAR GENETIC PATHOLOGIST): This is a significant, separately identifiable problem that was evaluated and managed on the same day as the wellness exam Unable to rule out DVT with her calf pain/sxs. Check STAT Venous doppler. Recvd Results and discussed with patient via phone. Negative for DVT. Recommend PT. Prefers [facility] Annual physical exam 08/24/2020 021 Assessment & Plan (08/31/2020 9:34 AM MOLECULAR GENETIC PATHOLOGIST): Encouraged healthy lifestyle, good nutrition and exercise. Encouraged Calcium and Vitamin D and weight bearing exercise for bone health. Reviewed immunizations Reviewed age appropirate screenings. Dizziness 05/07/2020 09/06/2023 Assessment & Plan (05/14/2020 9:35 PM MOLECULAR GENETIC PATHOLOGIST): Suspect the dizziness is inner ear related. [...] imaging. Assessment & Plan (05/07/2020 1:49 PM MOLECULAR GENETIC PATHOLOGIST): Declines to report to er now 'I [...] 05/14/2020 Assessment & Plan (05/07/2020 1:49 PM MOLECULAR GENETIC PATHOLOGIST): Declines to report to er now 'I [...] 12/30/2020 Assessment & Plan (05/07/2020 1:49 PM MOLECULAR GENETIC PATHOLOGIST): Declines to report to er now 'I [...] next week Acute otalgia, left 04/03/2020 12/31/19 Assessment & Plan (04/03/2020 11:45 AM CDT): Will start on antibiotics, continue with flonase Advised f/u in 72h if not improving, sooner if worsening Breast cancer screening by mammogram 02/18/2020 04/06/2023 Assessment & Plan (01/20/2023 8:14 PM CDT): Mammogram order provided Assessment & Plan (01/23/2022 5:00 PM CDT): Mammogram order provided Assessment & Plan (05/31/2021 9:15 PM MOLECULAR GENETIC PATHOLOGIST): Mammogram order provided Assessment & Plan (02/18/2020 9:47 PM CDT): Mammogram order provided today Medicare annual wellness visit, subsequent 02/15/2020 02/15/2020 Precordial pain 09/04/2019 09/06/2023 Assessment & Plan (08/07/2023 7:50 PM MOLECULAR GENETIC PATHOLOGIST): Workup in the hospital. Cardiology states her [...] inhaler. Assessment & Plan (07/13/2021 11:26 AM MOLECULAR GENETIC PATHOLOGIST): The patient will continue with Dulera 2 [...] is breathing well. Annual physical exam 08/13/2019 08 020 Assessment & Plan (08/13/2019 8:59 AM MOLECULAR GENETIC PATHOLOGIST): Encouraged healthy lifestyle, good nutrition and exercise. Encouraged Calcium and Vitamin D and weight bearing exercise for bone health. Reviewed immunizations Reviewed age appropirate screenings. Obesity, morbid, BMI 40.0-49.9 08/13/2019 09/23/2020 Assessment & Plan (08/26/2020 7:10 AM MOLECULAR GENETIC PATHOLOGIST): Obesity is unchanged. Discussed the patient's BMI. The BMI is above average. BMI management plan is completed. BMI Follow-up includes: nutrition counseling, exercise counseling and education provided. Assessment & Plan (05/14/2020 9:33 PM MOLECULAR GENETIC PATHOLOGIST): Obesity is unchanged. Discussed the patient's BMI. [...] provided. Assessment & Plan (08/13/2019 8:58 AM MOLECULAR GENETIC PATHOLOGIST): Obesity is unchanged. Discussed the patient's BMI. [...] change Assessment & Plan (08/13/2019 9:01 AM MOLECULAR GENETIC PATHOLOGIST): This is a significant, separately identifiable problem [...] 01/22/2024 Assessment & Plan (09/06/2023 9:42 AM MOLECULAR GENETIC PATHOLOGIST): Probably multifactorial. Check labs and followup to re-evaluate Assessment & Plan (09/03/2021 11:28 AM MOLECULAR GENETIC PATHOLOGIST): She notes increased fatigue and lack of [...] re-evaluate Assessment & Plan (08/13/2019 9:08 AM MOLECULAR GENETIC PATHOLOGIST): Probably multifactorial. Check labs and followup to re-evaluate Check labs prior to next visit BMI 40.0-44.9, adult 08/02/2019 020 Assessment & Plan (08/13/2019 8:57 AM MOLECULAR GENETIC PATHOLOGIST): Obesity is unchanged. Discussed the patient's BMI. The BMI is above average. BMI management plan is completed. BMI Follow-up includes: nutrition counseling, exercise counseling and education provided. Assessment & Plan (08/02/2019 7:21 AM MOLECULAR GENETIC PATHOLOGIST): Obesity is unchanged. Discussed the patient's BMI. The BMI is above average. BMI management plan is completed. BMI Follow-up includes: nutrition counseling, exercise counseling and education provided. Morbid obesity 08/02/2019 08/13/2019 Assessment & Plan (08/02/2019 7:20 AM MOLECULAR GENETIC PATHOLOGIST): Obesity is unchanged. Discussed the patient's BMI. The BMI is above average. BMI management plan is completed. BMI Follow-up includes: nutrition counseling, exercise counseling and education provided. Acute non-recurrent maxillary sinusitis 08/02/2019 08/13/2019 Assessment & Plan (08/02/2019 7:47 AM MOLECULAR GENETIC PATHOLOGIST): Start antibiotic, antihistamine, Mucinex and Steroid nasal [...] foot. She is being sent directly to [facility] and they were working her [...] 21 Assessment & Plan (05/14/2020 9:33 PM MOLECULAR GENETIC PATHOLOGIST): Completed Doxy and steroid. No s/s infection. [...] p.r.n. 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 She is on aspirin and statin Assessment & Plan (12/24/2020 9:03 AM CDT): Sxs stable. On ASA, statin and encouraged daily exercise. Assessment & Plan (02/18/2020 9:43 PM CDT): Continue per cardio. On ASA and statin Assessment & Plan (08/13/2019 8:45 AM MOLECULAR GENETIC PATHOLOGIST): Continues with Dr. Alonso salmeron Assessment & Plan (11/01/2018 11:00 PM CDT): Pt sxs well controlled. 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 Continue per cardio Depression 07/16/2018 09/11/2021 Frontal sinusitis 06/26/2018 12/24/2020 Leukopenia 03/29/2018 12/30/2020 Other chronic pain 08/05/2017 Chronic seasonal allergic rh initis due to pollen 04/25/2017 12/30/2020 Assessment & Plan (12/24/2020 9:03 AM CDT): Continue current regimen with singulair and otc Assessment & Plan (02/18/2020 9:44 PM CDT): Continue with otc regimen Assessment & Plan (08/13/2019 8:46 AM MOLECULAR GENETIC PATHOLOGIST): Continue current regimen Assessment & Plan (11/01/2018 [...] potassium Assessment & Plan (09/11/2021 11:26 PM MOLECULAR GENETIC PATHOLOGIST): Bp is stable/in acceptable range for any co-morbidities. Encouraged to limit sodium intake and exercise for weight control. Currently stable without medication Assessment & Plan (05/29/2021 8:19 PM MOLECULAR GENETIC PATHOLOGIST): Bp is stable/in acceptable range for any co-morbidities. Encouraged to limit sodium intake and exercise for weight control. Continue Lasix is helping with the swelling and addition. Blood pressure stable Assessment & Plan (05/24/2021 10:38 AM MOLECULAR GENETIC PATHOLOGIST): Continue Lasix potassium Assessment & Plan (12/24/2020 9:05 AM CDT): Bp is stable/in acceptable range for any co-morbidities. Encouraged to limit sodium intake and exercise for weight control. Assessment & Plan (08/31/2020 9:32 AM MOLECULAR GENETIC PATHOLOGIST): Bp is stable/in acceptable range for any co-morbidities. Encouraged to limit sodium intake and exercise for weight control. Stable with laxis currently Assessment & Plan (02/18/2020 9:44 PM CDT): Bp is stable/in acceptable range for any co-morbidities. Encouraged to limit sodium intake and exercise for weight control. Assessment & Plan (08/13/2019 8:57 AM MOLECULAR GENETIC PATHOLOGIST): Bp is stable/in acceptable range for any [...] difficulty pulling them. Recommend finding some on [employer] that fit her calf that she can zip on and off. Showed them to her on [employer] and where to order them. She states she will try to get them. Assessment & Plan (05/31/2021 9:16 PM MOLECULAR GENETIC PATHOLOGIST): Improving slowly. May have been due to the Relafen. She is on 60 of Lasix with potassium 10 mEq daily. Continue with current plan. Keep legs elevated. Utilize compressi to improve cleared. on hose. Call if symptoms worsen or do not continue to improve. Assessment & Plan (05/29/2021 8:23 PM MOLECULAR GENETIC PATHOLOGIST): Persistent lower extremity edema that has improved [...] CMP. Assessment & Plan (05/24/2021 10:39 AM MOLECULAR GENETIC PATHOLOGIST): Patient that her swelling was improving since discharge for over the last day or so it seems to be increasing. Will increase the Lasix to 40mg Start K 10meq daily Recheck labs in 5 days Assessment & Plan (08/31/2020 9:33 AM MOLECULAR GENETIC PATHOLOGIST): Continue lasix Palpitations 12/08/2015 12/30/2020 Overview (10/09/2016): Palpitations Other abnormal glucose 11/11/201508/31 Asthma 10/14/2015 12/24/2020 Assessment & Plan (08/13/2019 8:49 AM MOLECULAR GENETIC PATHOLOGIST): Continue with current regimen and with Pulmonary Assessment & Plan (11/01/2018 10:53 PM CDT): Currently Stable with regimen. Monitor closely with current allergy season. Followup Dr. Gomez as directed. Menopause 10/14/2015 12/30/2020 Cervical pain (neck) 10/14/2015 023 Encounters Date Type Department Care Team Description 11/22/2024 7:30 AM CDT Office Visit [facility] Medicine [facility] [facility] [address] [place] [address] Alee Elizondo PA Urinary retention (Primary Dx); Pelvic lipomatosis; Elevated parathyroid hormone; Anemia, unspecified type; BMI 35.0-35.9,adult; Morbid obesity (HCC) 11/22/2024 Orders Only [facility] [address] [place] [phone] Sangita Farrar PA 11/21/2024 1:15 PM CDT Lab [facility] [address] [place] [address] 11/21/2024 11:15 AM CDT Office Visit [facility] [address] [place] [phone] Sangita Farrar PA 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) (Primary Dx); Primary osteoarthritis involving multiple joints; Encounter for medication monitoring 11/21/2024 Results Follow-Up [facility] [address] [place] [phone] Sangita Farrar PA CBC with auto differential, Differential, auto 11/15/2024 Orders Only [facility] [address] [facility] 5th [place] [address] [place] [address] Abisai Martinez MD Age-related osteoporosis without current pathological fracture (Primary Dx) 11/12/2024 8:25 AM CDT Lab [facility] [address] [place] [address] Pre-diabetes 11/12/2024 8:10 AM CDT Lab [facility] [address] [place] [address] Age-related osteoporosis without current pathological fracture 11/12/2024 Results Follow-Up [facility] [address] [facility] [address] [place] [phone] Alee Elizondo PA Hemoglobin A1c 11/12/2024 Results Follow-Up [facility] [address] [place] [address] Road [address] [place] [address] Alee Elizondo PA Comprehensive metabolic panel, eGFR, Protein electrophoresis with reflex, serum with interpretation, Additional followed-up results: 3 11/08/2024 2:35 PM CDT Lab [facility] ([facility]) [address] [place] [phone] Age-related osteoporosis without current pathological fracture 11/08/2024 12:33 PM CDT - 11/08/2024 11:59 PM CDT Hospital Encounter [facility] ([facility]) [address] [place] [phone] Abisai Martinez MD Age-related osteoporosis without current pathological fracture Discharge Disposition: Discharge to home or self care 11/08/2024 11:40 AM CDT Office Visit [address] [place] [address] Abisai Martinez MD Age-related osteoporosis without current pathological fracture (Primary Dx) 11/08/2024 11:10 AM CDT Clinical Support [address] [place] [address] Age-related osteoporosis without current pathological fracture (Primary Dx) 11/08/2024 Results Follow-Up [address] [place] [address] Abdomen Pelvis WO Contrast 11/08/2024 Orders Only [address] [place] [address] Anh Segal NP Age-related osteoporosis without current pathological fracture (Primary Dx) 11/08/2024 Orders Only [address] [place] [address] ProviderTania MD 11/08/2024 Imaging Exam [address] [place] [address] Alee Elizondo PA 11/08/2024 Telephone [facility] [address] [facility] 5th [place] [address] Abisai Martinez MD Treatment Plan Update (New reclast) 11/08/[address] [place] [address] Alee Elizondo PA 11/07/2024 Telephone [facility] [address] [facility] 5th [place] [address] Abisai Martinez MD 11/06/2024 9:15 AM CDT Office Visit [address] [place] [phone] Ciara Monge NP OWEN on CPAP (Primary Dx); PLMD (periodic limb movement disorder) 11/06/[address] [phone] Shailesh Dunn MD 10/23/2024 1:00 PM CDT Office Visit [address] [place] [phone] Alee Elizondo PA Acute non-recurrent sinusitis, unspecified location (Primary Dx); Acute cough; BMI 34.0-34.9,adult; Morbid obesity (HCC) 10/19/2024 Orders Only [address] [place] [phone] ProviderTania MD 10/13/2024 Orders Only [facility] Health Information Management [address] [place] [address] Alec Coles 10/12/2024 Results Follow-Up [address] [place] [phone] Alee Elizondo PA SCAN - LABS 10/10/2024 7:30 AM CDT Office Visit [address] [place] [phone] Alee Elizondo PA Annual physical exam (Primary Dx); 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); Age-related osteoporosis without current pathological fracture; OWEN on CPAP; Moderate episode of recurrent major depressive disorder (HCC); Mixed hyperlipidemia; Pre-diabetes; Gastroesophageal reflux disease without esophagitis; Pelvic lipomatosis; BMI 35.0-35.9,adult; Morbid obesity (HCC) 10/10/[address] [place] [phone] Alee Elizondo PA Medication Request 10/07/2024 Orders Only [facility] Health Information Management [address] [place] [address] Alee Elizondo PA 10/04/2024 Results Follow-Up [address] [place] [phone] Alee Elizondo PA Screening Mammogram Bilateral [place]yll[place] 10/04/2024 Orders Only [address] [place] [phone] ProviderTania MD 10/03/[address] [place] [phone] Alee Elizondo PA 09/26/2024 Orders Only [address] [place] [phone] Alee Elizondo PA Breast cancer screening by mammogram (Primary Dx) 09/25/2024 11:00 AM CDT Office Visit [facility] at [address] [phone] Jessica Collins NP Influenza A (Primary Dx); Acute cough 09/25/2024 Results Follow-Up [facility] [address] [facility] [address] [place] [address] Alee Elizondo PA Screening Mammogram Bilateral W Dyllan 09/20/2024 8:00 AM CDT Office Visit [facility] [address] [facility] [address] [place] [address] Devika Marin MD Venous insufficiency (chronic) (peripheral) (Primary Dx); Mixed hyperlipidemia 09/20/2024 Telephone [facility] [address] [place] [phone] Michael Motta MD med clarification 09/14/[address] [phone] Codi Branham 09/13/2024 2:45 PM CDT Office Visit [facility] [address] [place] [phone] Michael Motta MD Chronic pain of right knee (Primary Dx); History of total knee arthroplasty, right 09/13/2024 1:44 PM CDT - 09/13/2024 11:59 PM CDT Hospital Encounter [facility] [place] [address] Chronic pain of right knee Discharge Disposition: Discharge to home or self care 09/04/2024 Results Follow-Up [facility] [address] [facility] [address] [place] [address] Alee Elizondo PA SCAN - LABS 08/31/[address] [place] [address] Alee Elizondo PA Medical Question/Miscellaneous 08/31/2024 Orders Only [place] [address] [facility] [address] [place] [address] Provider, MD Tania from Last 3 Months Immunizations Immunization Administration Dates Next Due COVID-19 mRNA ([employer] 0.3 m L (30 mcg) vaccine (12 [...] hea rt failure; Stroke Mother Jeanette Stroke; Broken bones Neg Hx Hip fracture Neg Hx Kyphosis Neg Hx Osteoporosis Neg Hx Scoliosis Neg Hx Relation Name Status Comments Brother Father Salomón Mother Jeanette Social History Tobacco Use Types Packs/Day Years Used Date Smoking Tobacco: Never Smokeless Tobacco: Never Tobacco Cessation:Counseling Given: Not Answered Comments:Never used Alcohol Use Standard Drinks/Week Comments No 0 (1 standard drink = 0.6 oz pur e alcohol) [employer] Answer Date Recorded In the past 12 months has [employer], gas, oil, or water [employer] threatened to shut off services in your [...] often do you attend chur ch or latter-day services? 1 to 4 times per year 05/30/2024 Do you belong to any clubs o r organizations such as sabianist groups, unions, fraternal or athletic groups, or [...] on file Legal Sex Female 8:04 PM MOLECULAR GENETIC PATHOLOGIST Gender Identity Female 02/15/2020 6:08 PM CDT Sexual Orientation Not on file Obstetrics History Last Filed Vital Signs Vital Sign Reading Time Taken Comments Blood Pressure 112/64 11/22/2024 7:17 AM CDT Pulse 76 11/22/2024 7:17 AM CDT Temperature 37.1 C (98.7 F) 11/22/2024 7:17 AM CDT Respiratory Rate 18 11/06/2024 8:54 AM CDT Oxygen Saturation 99% 11/22/2024 7:17 AM CDT Inhaled Oxygen Concentration - - Weight 86.1 kg (189 lb 12.8 oz) 11/22/2024 7:17 AM CDT Height 154.9 cm (5' 1) 11/21/2024 10:3 2 AM CDT Body Mass Index 35.86 11/21/2024 10:32 AM CDT Plan of Treatment Health Maintenance Due Date Last Done Comments Hepatitis B Screening 1973 Covid-19 Vaccine ( season) 2024 08/17/2023, 04/14/2023, 04/14/2023, Additional history exists Breast Cancer Screening-Mammogram 10/04/2025 10/04/2024, 08/02/2023, 05/31/2022, Additional history exists Well Visit 65+ 10/10/2025 10/10/2024, 1003/2024, 09/06/2023, Additional history exists Depression Screening 11/22/2025 11/22/2024, 10/23/2024, 10/10/2024, Additional history exists Fall Risk Assessment 11/22/2025 11/22/2024, 10/10/2024, 06/05/2024, Additional history exists Colon Cancer Screening-Colonoscopy 07/27/2026 07/27/2021, 04/19/2016, 04/19/2016 Osteoporosis Screening-Bone Density Scan 11/08/2026 11/08/2024, 04/12/2023, 01/27/2017, Additional history exists DTaP/Tdap/Td Vaccine (3 - Td or Tdap) [...] history exists Medical Devices Implanted Type Area Wood Polisher Device Identifier Shelf Expiration Date Model / Serial / Lot [employer] Simplex P Radiopaque Full Dose Cement Bone Sterile 6191-1-010 - [id number] Implanted:Qty: 2 on 05/04/2023 by Michael Motta MD at [facility] Bone Cement Left: Knee [employer] 05/03/2025 6191-1-010 / 6191-1-001 / [id number] [employer] Simplex P Radiopaque Full Dose Cement Bone Sterile 6191-1-010 - [id number] Implanted:Qty: 2 on 05/30/2024 by Michael Motta MD at [facility] Bone Cement Right: Patella [employer] [id number] 05/03/2026 6191-1-010 / / [id number] [employer] Persona 14mm 30+ Mm Knee Tibia Taper Extension Stem [id number] - [id number] 4 - [id number] Implanted:Qty: 1 on 05/04/2023 by Michael Motta MD at [facility] Left: Knee [employer] [id number] 02/15/2033 [id number] / [id number] 14 / [id number] [employer] Persona Cemented Cruciate Retaining Knee Left 7 Narrow Component [id number] - [id number] 1 - [id number] Implanted:Qty: 1 on 05/04/2023 by Michael Motta MD at [facility] Left: Knee [employer] [id number] 10/25/2032 [id number] / 50-7315-767- 01 / [id number] [employer] Baseplate Tibial Knee Cemented Left Fixed Stemmed Persona Size D Tivanium [id number] - [id number] 1 - [id number] Implanted:Qty: 1 on 05/04/2023 by Michael Motta MD at [facility] Left: Knee [employer] [id number] 09/11/2032 [id number] / 19-5790-796- 01 / [id number] [employer] Persona 11mm Knee Left 6-7 C-D Insert Articular Vivacit-E Sterile [id number] - [id number] 1 - [id number] Implanted:Qty: 1 on 05/04/2023 by Michael Motta MD at [facility] Left: Knee [employer] [id number] 12/28/2025 [id number] / [id number]- 11 / [id number] [employer] Persona 32mm Knee Component Patellar All Poly Latex Free [id number] - [id number] Implanted:Qty: 1 on 05/04/2023 by Michael Motta MD at [facility] [employer] 12/19/2027 [id number] / / [id number] [employer] Baseplate Tibial Knee Cemented Right Fixed Stemmed Persona Size C [employer] [id number] - [id number] Implanted:Qty: 1 on 05/30/2024 by Michael Motta MD at [facility] Right: Knee [employer] [id number] 03/22/2033 [id number] / / [id number] [employer] Persona 29mm Knee Component Patellar All Poly Latex Free [id number] - [id number] Implanted:Qty: 1 on 05/30/2024 by Michael Motta MD at [facility] Right: Knee [employer] [id number] 12/18/2028 [id number] / / [id number] [employer] Persona 13mm Cruciate Retain Knee Right 6-7 Cd Insert Articular Latex Free [id number] - [id number] Implanted:Qty: 1 on 05/30/2024 by Michael Motta MD at [facility] Right: Patella [employer] [id number] 05/04/2025 [id number] / / [id number] [employer] Persona Cruciate Retaining Cemented Knee Right 7 Narrow Component [id number] - [id number] Implanted:Qty: 1 on 05/30/2024 by Michael Motta MD at [facility] Right: Knee [employer] [id number] 12/27/2033 [id number] / / [id number] [employer] Persona 14mm 30+ Mm Knee Tibia Taper Extension Stem [id number] - [id number] Implanted:Qty: 1 on 05/30/2024 by Michael Motta MD at [facility] Right: Knee [employer] [id number] 04/11/2034 [id number] / / [id number] Procedures Procedure Name Priority Date/Time Associated Diagnosis Comments CALCIUM, 24 HOUR URINE (W/ CREATININE) Routine 11/27/2024 8:10 AM CDT Elevated parathyroid hormone SCAN - LABS 11/22/2024 3:36 PM CDT VITAMIN B12 Routine 11/22/2024 9:03 AM CDT CBC WITH AUTO DIFFERENTIAL Routine 11/22/2024 9:03 AM CDT IRON PROFILE W/ IBC Routine 11/22/2024 9 :03 AM CDT Anemia, unspecified type FERRITIN Routine 11/22/2024 9:03 AM CDT Anemia, unspecified type CBC WITH AUTO DIFFERENTIAL Routine 11/21/2024 4:04 PM CDT Encounter for medication monitoring DIFFERENTIAL AUTO Routine 11/21/2024 1:2 9 PM CDT CBC WITH AUTO DIFFERENTIAL Routine 11/21/2024 1:29 PM CDT EGFR Routine 11/12/2024 8:36 AM CDT Age-related osteoporosis without current pathological fracture COMPREHENSIVE METABOLIC PANEL Routine 11/12/2024 8:36 AM CDT Age-related osteoporosis without current pathological fracture PHOSPHORUS Routine 11/12/2024 8:36 AM CDT Age-related osteoporosis without current pathological fracture PTH Routine 11/12/2024 8:36 AM CDT Age-related osteoporosis without current pathological fracture VITAMIN D 25 HYDROXY Routine 11/12/2024 8:36 AM CDT Age-related osteoporosis without current pathological fracture PROTEIN ELECTROPHORESIS, WITH REFLEX, SERUM Routine 11/12/2024 8:36 AM CDT Age-related osteoporosis without current pathological fracture HEMOGLOBIN A1C Routine 11/12/2024 8:18 AM CDT Pre-diabetes XR SPINE LUMBAR 2 OR 3 VIEWS Schedule Routine, Read Routine (OP Routine) 11/08/2024 12:45 PM CDT Age-related osteoporosis without current pathological fracture XR SPINE THORACIC 2 VIEWS Schedule Routine, Read Routine (OP Routine) 11/08/2024 12:45 PM CDT Age-related osteoporosis without current pathological fracture DEXA TBS AXIAL SKELETON BONE DENSITY 1 OR MORE SITES Schedule Routine, Read Routine (OP Routine) 11/08/2024 10:31 AM CDT Age-related osteoporosis without current pathological fracture CT ABDOMEN PELVIS WO CONTRAST Schedule Routine, Read Routine (OP Routine) 11/05/2024 1:16 PM CDT POC INFLUENZA A/B, COVID-19 ANTIGEN Routine 10/23/2024 1:14 PM CDT Acute cough SCAN - LABS 10/13/2024 URINE CULTURE Routine 10/10/2024 2:46 PM CDT [...] PM CDT Chronic pain of right knee COLONOSCOPY Routine 07/27/2021 HEPATITIS C ANTIBODY Routine 06/04/2020 10:29 AM MOLECULAR GENETIC PATHOLOGIST Encounter for screening for other viral diseases Chronic fatigue from Last 3 Months or Most Recently Relevant to Health Maintenance Results * CALCIUM, 24 HOUR URINE (W/ CREATININE) (11/27/2024 8:10 AM CDT) Calcium/Creatin ine Ratio 162 30 - 275 mg/g creat [facility] Calcium, 24 hour ur 150 mg/24 h [facility] Comment: Reference Range 35-250 Low calcium diet 35-200 Creatinine, 24 hour ur 0.93 0.50 - 2.15 g/24 h [facility] Urine 11/27/2024 8:10 AM CDT 11/27/2024 7:20 PM CDT Narrative [facility] - 11/28/2024 2:37 PM CDT URINE VOLUME: 2500/24 Alee OSMAN LAB URINE ORDERABLES Final Result Performing Organization Address [facility] de Phone Number [facility] [address] [place] [address] * SCAN - LABS (11/22/2024 3:36 PM CDT) Sangita OSMAN Final Res ult * Iron profile w/ IBC (11/22/2024 9:03 AM CDT) Pathologist [facility] Iron 112 45 - 160 mcg/dL [facility] TIBC 303 250 - 450 mcg/dL (calc) [facility] Iron saturation 37 16 - 45 % (calc) [facility] Blood 11/22/2024 9:03 AM CDT 11/22/2024 9:03 AM CDT Alee OSMAN LAB BLOOD ORDERABLES Final Result Performing Organization Address [facility] de Phone Number [facility] [address] [place] [address] * (ABNORMAL) CBC with auto differential (11/22/2024 9:03 AM CDT) WBC 3.4(L) 3.8 - 10.8 Thousand/u L [facility] RBC, POC 3.49(L) 3.80 - 5.10 Million/uL [facility] Hgb 11.5(L) 11.7 - 15.5 g/dL [facility] Hct 36.3 35.0 - 45.0 % [facility] MCV 104.0(H) 80.0 - 100.0 fL [facility] MCH 33.0 27.0 - 33.0 pg [facility] MCHC 31.7(L) 32.0 - 36.0 g/dL [facility] Comment: For adults, a slight decrease in the calculated MCHC value (in the range of 30 to 32 g/dL) is most likely not clinically significant; however, it should be interpreted with caution in correlation with other red cell parameters and the patient's clinical condition. Rdw 14.5 11.0 - 15.0 % [facility] Platelets 222 140 - 400 Thousand/u L [facility] MPV 10.2 7.5 - 12.5 fL [facility] Neutrophils, abs 2,006 1,500 - 7,800 cells/uL [facility] Lymphocytes, abs 772(L) 850 - 3,900 cells/uL [facility] Monocyte abs 462 200 - 950 cells/uL [facility] Eosinophils, abs 129 15 - 500 cells/uL [facility] Basophils, abs 31 0 - 200 cells/uL [facility] Neutrophils 59 % [facility] Lymphocyte pct 22.7 % [facility] Monocytes 13.6 % [facility] Eosinophils 3.8 % [facility] Basophils 0.9 % [facility] 11/22/2024 9:03 AM CDT 11/22/2024 9:03 AM CDT us Alee OSMAN LAB BLOOD ORDERABLES Final Result [facility] [address] [place] [address] * Ferritin (11/22/2024 9:03 AM CDT) Ferritin 182 16 - 288 ng/mL [facility] [facility] Blood 11/22/2024 9:03 AM CDT 11/22/2024 9:03 AM CDT Alee OSMAN LAB BLOOD ORDERABLES Final Result Performing Organization Address [facility] de Phone Number [facility] [address] [place] [address] * Vitamin B12 (11/22/2024 9:03 AM CDT) [facility] Vitamin B12 755 200 - 1,100 pg/mL [facility] 11/22/2024 9:03 AM CDT 11/22/2024 9:03 AM CDT Alee OSMAN LAB BLOOD ORDERABLES Final Result Performing Organization Address [facility] Phone Number [employer] [facility] [address] [place] [address] * CBC with auto differential (11/21/2024 4:04 PM CDT) Blood Sangita OSMAN LAB BLOOD ORDERABLES Edit ed Result - Final Performing Organization Address [facility] Phone Number QUEST * Differential, auto (11/21/2024 1:29 PM CDT) [facility] Neutrophil abs 2.74 1.50 - 6.50 K/cumm Imm gran abs 0.02 0.00 - 0.10 K/cumm [facility] Lymphocyte abs 0.99 0.80 - 3.30 K/cumm [facility] Monocyte abs 0.43 0.20 - 0.80 K/cumm [facility] Eosinophil abs 0.12 0.00 - 0.50 K/cumm [facility] Basophil abs 0.04 0.00 - 0.10 K/cumm [facility] Neutrophil pct 63.1 % [facility] Comment: Interpretive Data Percent cell count reference ranges are not reported, since discordance with absolute values may lead to misinterpretation of CBC data. Current Interpretive Data was last revised on 2017. Imm gran pct 0.5 % [facility] Comment: Interpretive Data Percent cell count reference ranges are not reported, since discordance with absolute values may lead to misinterpretation of CBC data. Current Interpretive Data was last revised on 2017. Lymphocyte pct 22.8 % [facility] Comment: Interpretive Data Percent cell count reference ranges are not reported, since discordance with absolute values may lead to misinterpretation of CBC data. Current Interpretive Data was last revised on 2017. Monocyte pct 9.9 % [facility] Comment: Interpretive Data Percent cell count reference ranges are not reported, since discordance with absolute values may lead to misinterpretation of CBC data. Current Interpretive Data was last revised on 2017. Eosinophil pct 2.8 % [facility] Comment: Interpretive Data Percent cell count reference ranges are not reported, since discordance with absolute values may lead to misinterpretation of CBC data. Current Interpretive Data was last revised on 2017. Basophil pct 0.9 % [facility] Comment: Interpretive Data Percent cell count reference ranges are not reported, since discordance with absolute values may lead to misinterpretation of CBC data. Current Interpretive Data was last revised on 2017. Blood 11/21/2024 1:29 PM CDT 11/21/2024 3:07 PM CDT us Sangita OSMAN LAB BLOOD ORDERABLES Vy suazo Result [facility] [address] [facility] Department [place] [address] * (ABNORMAL) CBC with auto differential (11/21/2024 1:29 PM CDT) WBC 4.34 3.80 - 9.90 K/cumm Hgb 11.1(L) 11.9 - 15.5 g/dL [facility] Hct 34.5(L) 35.6 - 45.5 % [facility] Plt 218 150 - 400 K/cumm [facility] MPV 10.7 9.1 - 12.3 fL [facility] RBC 3.37(L) 3.90 - 5.20 M/cumm [facility] MCV 102.4(H) 81.3 - 96.4 fL [facility] MCH 32.9 27.1 - 33.3 pg [facility] MCHC 32.2(L) 32.3 - 35.7 g/dL [facility] RDW CV 16.2(H) 11.1 - 14.9 % [facility] RDW SD 58.6(H) 35.7 - 48.1 fL [facility] NRBC abs 0.00 0.00 - 0.01 K/cumm [facility] Blood 11/21/2024 1:29 PM CDT 11/21/2024 3:07 PM CDT Sangita OSMAN LAB BLOOD ORDERABLES Vy suazo Result [facility] [address] [facility] Department [place] [address] * (ABNORMAL) eGFR (11/12/2024 8:36 AM CDT) eGFR 58(L) >=60 mL/min/1. 73 m2 Comment: Interpretive Data [...] interpretive data was last reviewed 2021. Blood 11/12/2024 8:36 AM CDT 11/12/2024 9:04 AM CDT Abisai Martinez MD LAB BLOOD ORDERABLES Final Res ult [facility] [address] [employer] [place] [address] * Vitamin D 25 hydroxy (11/12/2024 8:36 AM CDT) [facility] Vitamin D 25-OH 47.0 30.0 - 80.0 ng/mL Blood 11/12/2024 8:36 AM CDT 11/12/2024 9:04 AM CDT Abisai Martinez MD LAB BLOOD ORDERABLES Final Res ult Performing Organization Address [facility] Co de Phone Number CEL[address] [employer] [place] [address] * Protein electrophoresis with reflex, serum with interpretation (11/12/2024 8:36 AM CDT) [facility] Protein, sr 6.4 6.2 - 8.2 g/dL Comment:Testing performed by : [facility], [address] [place] [address]., [address] Albumin 3.6 3.2 - 5.0 g/dL VI[facility] Comment:Testing performed by : [facility], [address] [place] [address], [place]., [address] Alpha-1 globulin 0.4 0.2 - 0.4 g/dL [facility] Comment:Testing performed by : [facility], [address] [place] [address], [place]., [address] Alpha-2 globulin 0.7 0.5 - 1.0 g/dL VI[facility] Comment:Testing performed by : [facility], [address] [place] [address]., [address] Beta-1 globulin 0.4 0.3 - 0.6 g/dL VI[facility]CA Comment:Testing performed by : [facility], [address] [place] [address]., [address] Beta-2 globulin 0.4 0.2 - 0.6 g/dL [facility] Comment:Testing performed by : [facility], [address] [place]., [address] Gamma globulin 0.9 0.5 - 1.7 g/dL [facility] Comment:Testing performed by : [facility], [address] [place]., [address] SPEP interp Please see comment [facility] Comment: No apparent monoclonal peak Reviewed and signed by Raad Farrar MD, PhD 11/13/2024 Testing performed by: [facility], [address] [place]., [address] Blood 11/12/2024 8:36 AM CDT 11/12/2024 11:11 AM CDT Abisai Martinez MD LAB BLOOD ORDERABLES Final Res ult Performing Organization Address [facility]/ZIP Co de Phone Number [address] [place] [address] * Phosphorus (11/12/2024 8:36 AM CDT) Pathologist [facility] Phosphorus, pl 3.1 2.3 - 4.5 mg/dL Blood 11/12/2024 8:36 AM CDT 11/12/2024 9:04 AM CDT Abisai Martinez MD LAB BLOOD ORDERABLES Final Res ult Performing Organization Address City/[facility] Co de Phone Number [address] [employer] [place] [address] * (ABNORMAL) PTH (11/12/2024 8:36 AM CDT) Pathologist [facility] PTH 132(H) 15 - 65 pg/mL Blood 11/12/2024 8:36 AM CDT 11/12/2024 9:04 AM CDT Abisai Martinez MD LAB BLOOD ORDERABLES Final Res ult Performing Organization Address [facility]/ZIP Co de Phone Number [facility] [address] [facility] Department [place] [address] * (ABNORMAL) Comprehensive metabolic panel (11/12/2024 8:36 AM CDT) Sodium 139 135 - 145 mmol/L Potassium, pl 4.0 3.3 - 4.9 mmol/L [facility] Chloride 108 97 - 110 mmol/L [facility] CO2 21(L) 22 - 32 mmol/L [facility] Anion gap 10 2 - 15 mmol/L [facility] BUN 22 6 - 25 mg/dL [facility] Creatinine 1.05 0.60 - 1.10 mg/dL [facility] Glucose 101 70 - 199 mg/dL [facility] Comment: Interpretive Data Fasting glucose [...] 2022. Calcium 9.0 8.5 - 10.3 mg/dL [facility] Bilirubin, total 0.3 0.1 - 1.2 mg/dL [facility] Protein, pl 6.9 6.5 - 8.5 g/dL [facility] Albumin 3.8 3.5 - 5.0 g/dL [facility] Alk phos 135(H) 40 - 130 Units/L [facility] ALT 30 7 - 45 Units/L [facility] AST 41 10 - 45 Units/L [facility] Blood 11/12/2024 8:36 AM CDT 11/12/2024 9:04 AM CDT Abisai Martinez MD LAB BLOOD ORDERABLES Final Res ult Performing Organization Address [facility]/ZIP Co de Phone Number VIANCA [address] [facility] [employer] [place] [address] * Hemoglobin A1c (11/12/2024 8:18 AM CDT) Hgb A1C 5.6 4.0 - 5.6 % Estimated Average Glucose 114 mg/dL [facility] Comment: The ADA recommends reporting an estimated Average Glucose (eAG) with all Hemoglobin A1c results using the equation derived from a study of 507 normal and diabetic adults. Minority populations were underrepresented and children were not included. (Diabetes Care 31:8791-7652, 2008). The eAG is not equivalent to a fasting glucose. Blood 11/12/2024 8:18 AM CDT 11/12/2024 9:05 AM CDT Alee OSMAN LAB BLOOD ORDERABLES Final Result Performing Organization Address City/State/[facility] Co de Phone Number [place] [address] [facility] [place] [address] * XR Spine Lumbar 2 or 3 Views (11/08/2024 12:45 PM CDT) Anatomical Region Laterality Modality Spine N/A Computed Radiogr aphy 11/08/2024 12:5 1 PM CDT Impressions 11/08/2024 12:51 PM CDT 1. Mild biconvex scoliosis of the thoracolumbar spine with moderate multilevel degenerative disc disease. Electronically signed by: Dawson Meneses MD Narrative 11/08/2024 12:51 PM CDT EXAMINATION: XR SPINE THORACIC 2 VIEWS, XR SPINE LUMBAR 2 OR 3 VIEWS HISTORY: Back pain. FINDINGS: Comparison to 06/02/2023, 06/03/2021. Thoracic spine: Mild dextro scoliosis of the thoracic spine centered at T7. Vertebral body heights are unchanged and preserved. Moderate multilevel degenerative disease most prominent at the lower thoracic spine. Sagittal alignment is normal. Lumbar spine: Mild rotatory levoscoliosis of the thoracic lumbar spine centered at L1. Vertebral body heights are preserved. Multilevel degenerative disc disease greatest and moderate at L4-L5. Moderate multilevel facet osteoarthritis. Right upper quadrant surgical clips. Calcified nodularity within the mid abdomen. Procedure Note Dawson Meneses MD - 11/08/2024 EXAMINATION: XR SPINE THORACIC 2 VIEWS, XR SPINE LUMBAR 2 OR 3 VIEWS HISTORY: Back pain. FINDINGS: Comparison to 06/02/2023, 06/03/2021. Thoracic spine: Mild dextro scoliosis of the thoracic spine centered at T7. Vertebral body heights are unchanged and preserved. Moderate multilevel degenerative disease most prominent at the lower thoracic spine. Sagittal alignment is normal. Lumbar spine: Mild rotatory levoscoliosis of the thoracic lumbar spine centered at L1. Vertebral body heights are preserved. Multilevel degenerative disc disease greatest and moderate at L4-L5. Moderate multilevel facet osteoarthritis. Right upper quadrant surgical clips. Calcified nodularity within the mid abdomen. IMPRESSION: 1. Mild biconvex scoliosis of the thoracolumbar spine with moderate multilevel degenerative disc disease. Electronically signed by: Dawson Meneses MD Abisai Martinez MD IMG XR PROCEDURES Final Result * XR Spine Thoracic 2 Views (11/08/2024 12:45 PM CDT) Anatomical Region Laterality Modality Spine N/A Computed Radiogr aphy 11/08/2024 12:5 1 PM CDT Impressions 11/08/2024 12:51 PM CDT 1. Mild biconvex scoliosis of the thoracolumbar spine with moderate multilevel degenerative disc disease. Electronically signed by: Dawson Meneses MD Narrative 11/08/2024 12:51 PM CDT EXAMINATION: XR SPINE THORACIC 2 VIEWS, XR SPINE LUMBAR 2 OR 3 VIEWS HISTORY: Back pain. FINDINGS: Comparison to 06/02/2023, 06/03/2021. Thoracic spine: Mild dextro scoliosis of the thoracic spine centered at T7. Vertebral body heights are unchanged and preserved. Moderate multilevel degenerative disease most prominent at the lower thoracic spine. Sagittal alignment is normal. Lumbar spine: Mild rotatory levoscoliosis of the thoracic lumbar spine centered at L1. Vertebral body heights are preserved. Multilevel degenerative disc disease greatest and moderate at L4-L5. Moderate multilevel facet osteoarthritis. Right upper quadrant surgical clips. Calcified nodularity within the mid abdomen. Procedure Note Dawson Meneses MD - 11/08/2024 EXAMINATION: XR SPINE THORACIC 2 VIEWS, XR SPINE LUMBAR 2 OR 3 VIEWS HISTORY: Back pain. FINDINGS: Comparison to 06/02/2023, 06/03/2021. Thoracic spine: Mild dextro scoliosis of the thoracic spine centered at T7. Vertebral body heights are unchanged and preserved. Moderate multilevel degenerative disease most prominent at the lower thoracic spine. Sagittal alignment is normal. Lumbar spine: Mild rotatory levoscoliosis of the thoracic lumbar spine centered at L1. Vertebral body heights are preserved. Multilevel degenerative disc disease greatest and moderate at L4-L5. Moderate multilevel facet osteoarthritis. Right upper quadrant surgical clips. Calcified nodularity within the mid abdomen. IMPRESSION: 1. Mild biconvex scoliosis of the thoracolumbar spine with moderate multilevel degenerative disc disease. Electronically signed by: Dawson Meneses MD us Abisai Martinez MD IMG XR PROCEDURES Final Result * Dexa TBS Axial Skeleton Bone Density 1 or more sites (11/08/2024 10:31 AM CDT) Anatomical Region Laterality Modality Wrist, Body N/A Radiographic Melanie ging Narrative 11/08/2024 11:38 AM CDT Patient Name: Nohemy Roy Date of : 1955 Date of scan: 11/08/2024 Bone mineral density was performed on a [employer] Discovery Densitometer. Based on machine cross-calibration and precision studies the least significant changes of this densitometer is 0.024 g/cm2 at the spine, 0.020 g/cm2 at the total proximal femur, and 0.014g/cm2 at the forearm. HISTORY: This is a 69 y.o. postmenopausal female with a history of osteoporosis and rheumatoid arthritis. She reports that she has never smoked. She has never used smokeless tobacco. Currently on treatment with vitamin D, previously treated with alendronate (Fosamax), zoledronic acid (Reclast), teriparatide (Forteo), and denosumab (Prolia), and current complaint of back pain. INDICATIONS: Menopause status, history of prior right wrist fracture, and history of osteoporosis. FINDINGS: BONE MINERAL DENSITY OF THE LUMBAR SPINE Bone Mineral Density (BMD) of the lumbar spine was measured from L1-L4 and the average density was calculated to be 0.809 gm/cm2. This corresponds to a T-score (standard deviations from the mean of young adults) of -2.2. There is no previous study available for comparison. BONE MINERAL DENSITY OF THE PROXIMAL FEMUR Bone Mineral Density (BMD) of the left hip total was found to be 0.739 gm/cm2. This corresponds to a T-score standard deviations from the mean of young adults of -1.7. Femoral neck is 0.546 gm/cm2 with a T-score (standard deviations from the mean of young adults) of -2.7. There is no previous study available for comparison. SUMMARY: Bone mineral density shows evidence of osteoporosis and marked increase risk of fracture. The lumbar spine Trabecular Bone Score is 1.034 which suggests degraded bone microarchitecture compared to the general population. Final decisions regarding diagnostic or therapeutic recommendations should include BMD, TBS, additional clinical risk factors as well the clinical context of the patient. Please see attached TBS results for further details. ADDITIONAL COMMENTS: Postmenopausal Women and Men Over 50: Diagnostic criteria: Osteoporosis: BMD at or below -2.5 T-score; Osteopenia (low bone mass): BMD between -1.0 and -2.5 T-score. If the patient has a history of a fragility fracture, a fracture that occurred with trauma equivalent to a fall from a standing position or less, then the diagnosis is osteoporosis regardless of bone density. The history and data sections of the bone mineral density scan were prepared by Yana Newton(Luis)(Mikayla)(BD) CBDT who is accredited by the International Society of Clinical Densitometry. The overall patient assessment and scan interpretation were performed by Abisai Martinez M.D. who is certified by the International Society of Clinical Densitometry. [id number] us Abisai Martinez MD IM DXA PROCEDURES Final Resul t * (ABNORMAL) CT Abdomen Pelvis WO Contrast (11/05/2024 1:16 PM CDT) Anatomical Region Laterality Modality Body N/A Computed Tomogra phy Impressions 11/05/2024 1:16 PM CDT Re demonstration of multiple non obstructing renal calculi. Findings consistent with prior granulomatous disease No acute findings within the abdomen or pelvis as detailed above Historical Provider IMG CT PROCEDURES Edited Result - Final * POC Influenza A/B, COVID-19 antigen (10/23/2024 1:14 PM CDT) Pathologist [facility] Influenza A Ag, POC Negative Negative [facility] Influenza B Ag, POC Negative Negative [facility] COVID-19 Ag POC Presumptive Negative Presumptive Negative, Invalid [facility] Nasal 10/23/2024 1:14 PM CDT Result [facility] Alee OSMAN POINT OF CARE TEST ORDERAB LES Final Result [facility] [address] [facility] [address] [place] [address] * SCAN - LABS (10/13/2024) Provider Scanning Final Result * (ABNORMAL) Urine culture (10/10/2024 2:46 PM CDT) [facility] SCRIBED Urine Culture, Routine 100,000 Result [facility] Historical Provider LAB MICROBIOLOGY - GENERA L ORDERABLES Edited Result - Final * SCAN - LABS (10/07/2024) Alee OSMAN Final Resu lt * Screening Mammogram Bilateral W Dyllan (10/04/2024 11:00 AM CDT) Anatomical Region Laterality Modality Breast Bilateral Mammography Impressions 10/04/2024 11:00 AM CDT No mammographic evidence of malignancy Recommend routine screening mammogram in one year BI-RADS Category 2: Benign Findings Result [facility] Alee OSMAN IMG MAMMO PROCEDURES Final Result * (ABNORMAL) POC Influenza A/B, COVID-19 antigen (09/25/2024 11:02 AM CDT) Pathologist [facility] Influenza A Ag, POC Positive(A) Negative [facility] Influenza B Ag, POC Negative Negative [facility] COVID-19 Ag POC Presumptive Negative Presumptive Negative, Invalid [facility] Nasal 09/25/2024 11:0 2 AM CDT Jessica Collins LAND SURVEYING SURVEY WORKER POINT OF CARE TEST ORDERABLES Final Result Performing Organization Address City/State/[facility] Co de Phone Number [facility] [address] * XR Knee Right 3 Views [...] John Sparrow M.D. RB T: Report ID: [id number] Reading Location: [id number] Procedure Note John Sparrow MD - 09/18/2024 [...] John Sparrow M.D. RB T: Report ID: [id number] Reading Location: [id number] Michael Motta MD IMG XR PROCEDURES Final Re sult * Colonoscopy (07/27/2021) Anatomical Region Laterality Modality Other Historical Provider ENDOSCOPY PROCEDURES Vy l Result * Hepatitis C antibody (06/04/2020 10:29 AM MOLECULAR GENETIC PATHOLOGIST) Hep C Ab NON-REACTI VE NON-REACT ALEXYS [facility] SIGNAL TO CUT-OFF 0.02 <1.00 [facility] Comment: HCV antibody was non-reactive. There is no laboratory evidence of HCV infection. In most cases, no further action is required. However, if recent HCV exposure is suspected, a test for HCV RNA (test code 59831) is suggested. For additional information please refer to http://education.[employer]/faq/BPA01y4 (This link is being provided for informational/ educational purposes only.) Blood specimen (specimen) 06/04/2020 10:29 AM MOLECULAR GENETIC PATHOLOGIST 06/04/2020 10:30 AM MOLECULAR GENETIC PATHOLOGIST Sang[facility] OSMAN LAB MICROBIOLOGY - GENERA L ORDERABLES Final Result [employer] [facility] [address] [address] [phone] from Last 3 Months or Most Recently Relevant to Health Maintenance Insurance [facility] MEDICARE [facility] Address: [place] [address] [address] [place] [id number] [facility] MEDICARE [facility] Address: [place] [id number] [address] [place] [id number] [facility] MEDICARE [facility] Address: [place] [id number] [place] [id number] Advance Directives For more information, please contact: [phone] Documents on File Type Date Recorded 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 Squaring 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 Expl anation ADVANCE DIRECTIVE 05/17/2024 2:13 PM Yonis r of [employer] * Full Code (Latest Code Status on File) Date Activated Date Inactivated Comments 05/30/2024 12:38 PM 06/05/2024 6:31 PM * Full Code Date Activated Date Inactivated Comments 05/04/2023 2:33 PM 05/07/2023 3:07 AM * Full Code Date Activated Date Inactivated Comments 03/22/2021 4:39 PM 03/25/2021 6:17 PM Care Teams Supercharger Repair Supervisor Relationship Specialty Start Date End Date Alee Elizondo PA [address] [facility] [address] [place] [address] PCP - General Internal Medicine 07/05/23 Sharan Linton MD Referring Physician Gastroenterology 10/31/18 Martha Starks MD Consulting Physician Cardiology 12/24/20 Shama Hines MD [address] [facility] [address] [place] [address] Consulting Physician Pain Management 01/19/21 Artis Grewal MD [address] [place] [address] Consulting Physician Rheumatology 01/30/21 Amy Mayes NP [address] [facility] [address] [place] [address] Nurse Practitioner Cardiovascular Disease 04/20/24 Shailesh Dunn MD [address] [facility] [address] [address] Consulting Physician Pulmonary Disease 04/20/24 Sangita Farrar PA [address] [place] [address] Physician Stacker Straightener Rheumatology 05/15/24
--- OUTSIDE RECORDS SUMMARY | 2024-12-01 12:13 | XMS_ITS | Encounter Summary ---
Author Organization [facility] Address [address] [place] [address] Care Team Providers Care Translation Director Name Role Phone Sharan iLnton MD Unavailable [phone] Martha Starks MD Unavailable [phone] Shama Hines MD Unavailable Artis Grewal MD Unavailable +[phone] Alee Elizondo Primary Care Provider +[phone] Amy Mayes NP Unavailable +[phone] Shailesh Dunn MD Unavailable [phone] Sangita Farrar Unavailable +[phone] Encounter Details Date Type Department Care Team (Late st Contact Info) Description 10/04/2024 Results Follow-Up [facility] Family Medicine [address] [place] [address] Alee Elizondo PA [address] [place] [address] Screening Mammogram Bilateral W Dyllan Social History Tobacco Use Types Packs/Day Years [...] often do you attend chur ch or jehovah's witness services? 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 FRAME TENDER Gender Identity Female 02/15/2020 6:08 PM [...] documented as of this encounter Care Teams Translation Director Relationship Specialty Start Date End Date Alee Elizondo PA [address] [facility] [address] [place] [address] PCP - General Internal Medicine 07/05/23 Sharan Linton MD Referring Physician Gastroenterology 10/31/18 Martha Starks MD Consulting Physician Cardiology 12/24/20 Shama Hines MD [address] [facility] [address] [place] [address] Consulting Physician Pain Management 01/19/21 Artis Grewal MD [address] [place] [address] Consulting Physician Rheumatology 01/30/21 Amy Mayes NP [address] [facility] [address] [facility] [address] [place] [address] Nurse Practitioner Cardiovascular Disease 04/20/24 Shailesh Dunn MD [address] [address] Consulting Physician Pulmonary Disease 04/20/24 Sangita Farrar PA [address] [place] [address] Physician Room Service [place] Rheumatology 05/15/24 documented as of this encounter
--- OUTSIDE RECORDS SUMMARY | 2024-12-01 12:13 | XMS_ITS | Encounter Summary ---
Author Organization [facility] Facility Care Team Providers Care Vessel Master Name Role Phone Alee Elizondo Primary Care Provider + [phone] Sharan Linton MD Unavailable [phone] Taisha Gomez MD Unavailable [phone] Parag Soto MD Unavailable [phone] RaziaMartha singh MD Unavailable [phone] Puneet Uribe MD Unavailable +[phone] Shama Hines MD Unavailable Artis Grewal MD Unavailable [phone] Harrison Pena RN Unavailable +[phone] Nafisa Gregg RN Unavailable [phone] Tho Kelsey MD Primary Care Provider [phone] Alee Elizondo Primary Care Provider + [phone] Amy Mayes NP Unavailable +[phone] Shailesh Dunn MD Unavailable [phone] Sangita Farrar Unavailable +[phone] Encounter Details Date Type Department Care Team (Latest Contact Info) Description 08/10/2017 Orders Only [facility] CLINCONV Provider, MD Tania [address] [place] [address] Social History Tobacco Use Types Packs/Day Years Used Date Smoking Tobacco: Never Smokeless Tobacco: Never Alcohol Use Standard Drinks/Week Comments No 0 (1 standard drink = 0.6 oz pur e alcohol) Comments Unknown Sex and Gender Information Value Date Recorded Sex Assigned at Not on file Legal Sex Female 8:04 PM NATURAL RESOURCE ECONOMIST Gender Identity Female 02/15/2020 6:08 PM CDT Sexual Orientation Not on file documented as of this encounter Plan of Treatment Not on file documented as of this encounter Procedures Procedure Name Priority Date/Time Associated Diagnosis Comments CARDIOLOGY REPORT 08/10/2017 12: 00 AM NATURAL RESOURCE ECONOMIST documented in this encounter Results * CARDIOLOGY REPORT (08/10/2017 12:00 AM NATURAL RESOURCE ECONOMIST) Anatomical Region Laterality Modality Other Narrative 08/10/2017 12:00 AM NATURAL RESOURCE ECONOMIST Ordered by an unspecified provider. Historical Provider [facility] LEANDRA LANDRUM Final Result documented in this encounter Visit Diagnoses Not on filedocumented in this encounter Additional Health Concerns Infection Onset Date Last Indicated Resolved Time COVID: Suspected 08/13/2021 08/14/2021 08/14/2021 3:06 AM NATURAL RESOURCE ECONOMIST COVID: Suspected 08/14/2021 08/14/2021 08/15/2021 3:05 AM NATURAL RESOURCE ECONOMIST COVID: Suspected 08/14/2021 08/14/2021 08/15/2021 6:25 AM NATURAL RESOURCE ECONOMIST COVID: Suspected 06/02/2023 06/02/2023 06/02/2023 7:25 PM NATURAL RESOURCE ECONOMIST COVID: Suspected 07/26/2023 07/26/2023 07/26/2023 3:10 PM NATURAL RESOURCE ECONOMIST COVID: Suspected 09/25/2024 09/25/2024 09/25/2024 11:03 AM CDT Influenza, adult 09/25/2024 09/25/2024 10/02/2024 3:05 AM CDT COVID: Suspected 10/23/2024 10/23/2024 10/23/2024 1:15 PM CDT documented as of this encounter Care Teams Vessel Master Relationship Specialty Start Date End Date Alee Elizondo PA [address] [place] [address] PCP - General Internal Medicine 02/01/17 06/29/23 Tho Kelsey MD [address] [place] [address] [address] [place] [address] PCP - General Family Medicine 06/30/23 07/04/23 Alee Elizondo PA [address] [place] [address] PCP - General Internal Medicine 07/05/23 Sharan Linton MD [address] [place] [address] Referring Physician Gastroenterology 10/31/18 Taisha Gomez MD [address] [place] [address] Referring Physician Pulmonary Disease 10/31/18 12/23/20 Parag [place]oto MD [address] [place] [address] Referring Physician Rheumatology 10/31/18 12/23/20 Martha Starks MD [address] [place] [address] Consulting Physician Cardiology 12/24/20 Puneet Uribe MD [address] [facility] [address] [place] [address] Consulting Physician Rheumatology 12/24/20 01/29/21 Shama Hines MD [address] [facility] [address] Consulting Physician Pain Management 01/19/21 Artis Grewal MD [address] [place] [address] Consulting Physician Rheumatology 01/30/21 Harrison Pena RN [address] [place] [address] Delivery Motorcycle Driver 05/30/23 09/04/23 Nafisa Gregg RN [address] [place] [address] Delivery Motorcycle Driver 06/06/23 06/12/23 Amy Mayes NP [address] [address] Nurse Practitioner Cardiovascular Disease 04/20/24 Shailesh Dunn MD [address] [address] Consulting Physician Pulmonary Disease 04/20/24 Sangita Farrar PA [address] [place] [address] Physician Copy Worker Rheumatology 05/15/24 documented as of this encounter
--- OUTSIDE RECORDS SUMMARY | 2024-12-01 12:13 | XMS_ITS | Encounter Summary ---
Author Organization [facility] Facility Care Team Providers Care Eddy Current Inspector Name Role Phone Alee Elizondo Primary Care Provider + [phone] Sharan Linton MD Unavailable Taisha Gomez MD Unavailable +[phone] Parag Soto MD Unavailable [phone] RaziaMartha singh MD Unavailable [phone] Puneet Uribe MD Unavailable [phone] Shama Hines MD Unavailable Artis Grewal MD Unavailable [phone] Harrison Pena RN Unavailable +[phone] Nafisa Gregg RN Unavailable [phone] Tho Kelsey MD Primary Care Provider [phone] Alee Elizondo Primary Care Provider + [phone] Amy Mayes NP Unavailable +[phone] Shailesh Dunn MD Unavailable [phone] Sangita Farrar Unavailable +[phone] Encounter Details Date Type Department Care Team (Latest Contact Info) Description 06/28/2016 Orders Only [facility] CLINCONV Provider, MD Tania [address] [place] [address] Social History Tobacco Use Types Packs/Day Years Used Date Smoking Tobacco: Never Alcohol Use Standard Drinks/Week Comments No 0 (1 standard drink = 0.6 oz pur e alcohol) Comments Unknown Sex and Gender Information Value Date Recorded Sex Assigned at Not on file Legal Sex Female 8:04 PM DECK SCALER Gender Identity Female 02/15/2020 6:08 PM CDT Sexual Orientation Not on file documented as of this encounter Plan of Treatment Not on file documented as of this encounter Procedures Procedure Name Priority Date/Time Associated Diagnosis Comments SCAN - LABS 06/29/2016 12:00 AM DECK SCALER documented in this encounter Results * SCAN - LABS (06/29/2016 12:00 AM DECK SCALER) Narrative 06/29/2016 12:00 AM DECK SCALER Ordered by an unspecified provider. Historical Provider MD Final Res ult documented in this encounter Visit Diagnoses Not on filedocumented in this encounter Additional Health Concerns Infection Onset Date Last Indicated Resolved Time COVID: Suspected 08/13/2021 08/14/2021 08/14/2021 3:06 AM DECK SCALER COVID: Suspected 08/14/2021 08/14/2021 08/15/2021 3:05 AM DECK SCALER COVID: Suspected 08/14/2021 08/14/2021 08/15/2021 6:25 AM DECK SCALER COVID: Suspected 06/02/2023 06/02/2023 06/02/2023 7:25 PM DECK SCALER COVID: Suspected 07/26/2023 07/26/2023 07/26/2023 3:10 PM DECK SCALER COVID: Suspected 09/25/2024 09/25/2024 09/25/2024 11:03 AM CDT Influenza, adult 09/25/2024 09/25/2024 10/02/2024 3:05 AM CDT COVID: Suspected 10/23/2024 10/23/2024 10/23/2024 1:15 PM CDT documented as of this encounter Care Teams Eddy Current Inspector Relationship Specialty Start Date End Date Alee Elizondo PA [address] [facility] [address] [place] [address] PCP - General Internal Medicine 02/01/17 06/29/23 Tho Kelsey MD [address] [place] [address] [address] [facility] [address] [place] [address] PCP - General Family Medicine 06/30/23 07/04/23 Alee Elizondo PA [address] [facility] 500 [place] [address] PCP - General Internal Medicine 07/05/23 Sharan Linton MD [address] [facility] 500 [place] [address] Referring Physician Gastroenterology 10/31/18 Taisha Gomez MD [address] [facility] 500 [place] [address] Referring Physician Pulmonary Disease 10/31/18 12/23/20 Parag Soto MD [address] [facility] 500 [place] [address] Referring Physician Rheumatology 10/31/18 12/23/20 Martha Starks MD [address] [facility] [address] [place] [address] Consulting Physician Cardiology 12/24/20 Puneet Uribe MD [address] [facility] 110 [place] [address] Consulting Physician Rheumatology 12/24/20 01/29/21 Shama Hines MD 47[address] [facility], [facility] [address] [place] [address] Consulting Physician Pain Management 01/19/21 Artis Grewal MD [address] [place] [address] Consulting Physician Rheumatology 01/30/21 Harrison Pena, JULIUS [address] [place] [address] Press Smith Helper 05/30/23 09/04/23 Nafisa Gregg, JULIUS [address] [place] [address] [facility] [address] [place] [address] Press Smith Helper 06/06/23 06/12/23 Amy Mayes NP [address] [facility] 102 [place] [address] Nurse Practitioner Cardiovascular Disease 04/20/24 Shailesh Dunn MD 4600 [facility] [address] [place] [address] Consulting Physician Pulmonary Disease 04/20/24 Sangita Farrar PA [address] [place] [address] Physician Carpenter'S Assistant Rheumatology 05/15/24 documented as of this encounter
--- OUTSIDE RECORDS SUMMARY | 2024-12-01 12:13 | XMS_ITS | Encounter Summary ---
Author Organization [facility] Facility Care Team Providers Care Embedded Software Developer Name Role Phone Alee Elizondo Primary Care Provider + [phone] Sharan Linton MD Unavailable [phone] Taisha Gomez MD Unavailable [phone] Parag Soto MD Unavailable [phone] [facility] MD Unavailable [phone] Puneet Uribe MD Unavailable +[phone] Shama Hines MD Unavailable Artis Grewal MD Unavailable [phone] Harrison Pena RN Unavailable +[phone] Nafisa Gregg RN Unavailable +[phone] Tho Kelsey MD Primary Care Provider [phone] Alee Elizondo Primary Care Provider + [phone] Amy Mayes NP Unavailable +[phone] Shaielsh Dunn MD Unavailable [phone] Sangita Farrar Unavailable +[phone] Encounter Details Date Type Department Care Team (Latest Contact Info) Description 09/14/2016 Orders Only [facility] CLINCONV Provider, MD Tania [address] [place] [address] Social History Tobacco Use Types Packs/Day Years Used Date Smoking Tobacco: Never Alcohol Use Standard Drinks/Week Comments No 0 (1 standard drink = 0.6 oz pur e alcohol) Comments Unknown Sex and Gender Information Value Date Recorded Sex Assigned at Not on file Legal Sex Female 8:04 PM PULL OVER MACHINE OPERATOR Gender Identity Female 02/15/2020 6:08 PM CDT Sexual Orientation Not on file documented as of this encounter Plan of Treatment Not on file documented as of this encounter Procedures Procedure Name Priority Date/Time Associated Diagnosis Comments PROCEDURE - RESULT 09/09/2016 12 :00 AM PULL OVER MACHINE OPERATOR documented in this encounter Results * PROCEDURE - RESULT (09/09/2016 12:00 AM PULL OVER MACHINE OPERATOR) Narrative 09/09/2016 12:00 AM PULL OVER MACHINE OPERATOR Ordered by an unspecified provider. Historical Provider MD Final Res ult documented in this encounter Visit Diagnoses Not on filedocumented in this encounter Additional Health Concerns Infection Onset Date Last Indicated Resolved Time COVID: Suspected 08/13/2021 08/14/2021 08/14/2021 3:06 AM PULL OVER MACHINE OPERATOR COVID: Suspected 08/14/2021 08/14/2021 08/15/2021 3:05 AM PULL OVER MACHINE OPERATOR COVID: Suspected 08/14/2021 08/14/2021 08/15/2021 6:25 AM PULL OVER MACHINE OPERATOR COVID: Suspected 06/02/2023 06/02/2023 06/02/2023 7:25 PM PULL OVER MACHINE OPERATOR COVID: Suspected 07/26/2023 07/26/2023 07/26/2023 3:10 PM PULL OVER MACHINE OPERATOR COVID: Suspected 09/25/2024 09/25/2024 09/25/2024 11:03 AM CDT Influenza, adult 09/25/2024 09/25/2024 10/02/2024 3:05 AM CDT COVID: Suspected 10/23/2024 10/23/2024 10/23/2024 1:15 PM CDT documented as of this encounter Care Teams Embedded Software Developer Relationship Specialty Start Date End Date Alee Elizondo PA 10[address] [facility] 500 [place] [address] PCP - General Internal Medicine 02/01/17 06/29/23 Tho Kelsey MD [address] [place] [address] [facility] [address] [place] [address] PCP - General Family Medicine 06/30/23 07/04/23 Alee Elizondo PA [address] [facility] 500 [place] [address] PCP - General Internal Medicine 07/05/23 Sharan Linton MD 1095 [facility] 500 [place] [address] Referring Physician Gastroenterology 10/31/18 Taisha Gomez MD 1095 [facility] 500 [place] [address] Referring Physician Pulmonary Disease 10/31/18 12/23/20 Parag Soto MD 1095 [facility] 500 [place] [address] Referring Physician Rheumatology 10/31/18 12/23/20 Martha Starks MD 1095 [facility] [address] [place] [address] Consulting Physician Cardiology 12/24/20 Puneet Uribe MD [address] [facility] 110 [place] [address] Consulting Physician Rheumatology 12/24/20 01/29/21 Shama Hines MD 4700 [facility], [facility] 230 [place] [address] Consulting Physician Pain Management 01/19/21 Artis Grewal MD [address] [place] [address] Consulting Physician Rheumatology 01/30/21 Harrison Pena, JULIUS [address] [place] [address] Performance Management Consultant 05/30/23 09/04/23 Nafisa Gregg, JULIUS [address] [place] [address] [facility] [address] [place] [address] Performance Management Consultant 06/06/23 06/12/23 Amy Mayes NP [address] [facility] [address] [place] [address] Nurse Practitioner Cardiovascular Disease 04/20/24 Shailesh Dunn MD 4600 [facility] 200 [place] [address] Consulting Physician Pulmonary Disease 04/20/24 Sangita Farrar PA [address] [place] [address] Physician Montessori Paraprofessional Rheumatology 05/15/24 documented as of this encounter
--- OUTSIDE RECORDS SUMMARY | 2024-12-01 12:13 | XMS_ITS | Referral Summary ---
Author Organization [facility] [address] Address [address] [place] [address] Care Team Providers Care Supply Chain Development Manager Name Role Phone Sharan Linton MD Unavailable [phone] Martha Starks MD Unavailable [phone] Shama Hines MD Unavailable Artis Grewal MD Unavailable [phone] Alee Elizondo Primary Care Provider Amy Mayes NP Unavailable [phone] Shailesh Dunn MD Unavailable [phone] Sangita Farrar Unavailable [phone] Encounters Date Type Department Care Team Description 11/22/2024 Orders Only [facility] [address] [place] [address] Sangita Farrar PA 11/22/2024 7:30 AM CDT Office Visit [facility] [address] [place] [address] Alee Elizondo PA Urinary retention (Primary Dx); Pelvic lipomatosis; Elevated parathyroid hormone; Anemia, unspecified type; BMI 35.0-35.9,adult; Morbid obesity (HCC) 11/21/2024 Results Follow-Up [facility] [address] [place] [phone] Sangita Farrar PA CBC with auto differential, Differential, auto 11/21/2024 1:15 PM CDT Lab [facility] [address] [place] [id number] 11/21/2024 11:15 AM CDT Office Visit [address] [phone] Sangita Farrar PA 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) (Primary Dx); Primary osteoarthritis involving multiple joints; Encounter for medication monitoring 11/15/2024 Orders Only [address] 5th [place] [address] Abisai Martinez MD Age-related osteoporosis without current pathological fracture (Primary Dx) 11/12/2024 Results Follow-Up [address] [place] [phone] Alee Elizondo PA Hemoglobin A1c 11/12/2024 Results Follow-Up [address] [place] [phone] Alee Elizondo PA Comprehensive metabolic panel, eGFR, Protein electrophoresis with reflex, serum with interpretation, Additional followed-up results: 3 11/12/2024 8:25 AM CDT Lab [facility] [address] [place] [phone] Pre-diabetes 11/12/2024 8:10 AM CDT Lab [facility] [address] [place] [address] Age-related osteoporosis without current pathological fracture 11/08/2024 Results Follow-Up [address] [place] [phone] Abdomen Pelvis WO Contrast 11/08/2024 Orders Only [facility] [address] 5th [place] [address] Anh Segal NP Age-related osteoporosis without current pathological fracture (Primary Dx) 11/08/2024 Orders Only [facility] [address] [place] [address] ProviderTania MD 11/08/2024 Imaging Exam [facility] [address] [place] [address] Alee Elizondo PA 11/08/2024 2:35 PM CDT Lab [facility] [address] [place] [phone] Age-related osteoporosis without current pathological fracture 11/08/[address] [place] [phone] Abisai Martinez MD Treatment Plan Update (New reclast) 11/08/2024 12:33 PM CDT - 11/08/2024 11:59 PM CDT Hospital Encounter [facility] [address] [place] [address] Abisai Martinez MD Age-related osteoporosis without current pathological fracture Discharge Disposition: Discharge to home or self care 11/08/2024 Telephone [facility] [address] [place] [address] Alee Elizondo PA 11/08/2024 11:10 AM CDT Clinical Support [address] 5th [place] [phone] Age-related osteoporosis without current pathological fracture (Primary Dx) 11/08/2024 11:40 AM CDT Office Visit [address] [place] [phone] Abisai Martinez MD Age-related osteoporosis without current pathological fracture (Primary Dx) 11/07/[address] [place] [phone] Abisai Martinez MD 11/06/2024 Telephone [facility]monary [address] [phone] Shailesh Dunn MD 11/06/2024 9:15 AM CDT Office Visit [address] [phone] Ciara Monge NP OWEN on CPAP (Primary Dx); PLMD (periodic limb movement disorder) 10/23/2024 1:00 PM CDT Office Visit [address] [place] [phone] Alee Elizondo PA Acute non-recurrent sinusitis, unspecified location (Primary Dx); Acute cough; BMI 34.0-34.9,adult; Morbid obesity (HCC) 10/19/2024 Orders Only [address] [place] [phone] Provider, MD Tania 10/13/2024 Orders Only [facility] Health Information Management [address] [place] [phone] Sanket, Alec 10/12/2024 Results Follow-Up [address] [place] [phone] Alee Elizondo PA SCAN - LABS 10/10/[address] [place] [phone] Alee Elizondo PA Medication Request 10/10/2024 7:30 AM CDT Office Visit [address] [place] [phone] Alee Elizondo PA Annual physical exam (Primary Dx); 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); Age-related osteoporosis without current pathological fracture; OWEN on CPAP; Moderate episode of recurrent major depressive disorder (HCC); Mixed hyperlipidemia; Pre-diabetes; Gastroesophageal reflux disease without esophagitis; Pelvic lipomatosis; BMI 35.0-35.9,adult; Morbid obesity (HCC) 10/07/2024 Orders Only [facility] Health Information Management [address] [place] [address] Alee Elizondo PA 10/04/2024 Results Follow-Up [address] [place] [address] Alee Elizondo PA Screening Mammogram Bilateral [place] 10/04/2024 Orders Only [address] [place] [address] ProviderTania MD 10/03/[address] [place] [address] Alee Elizondo PA 09/26/2024 Orders Only [address] [place] [address] Alee Elizondo PA Breast cancer screening by mammogram (Primary Dx) 09/25/2024 Results Follow-Up [address] [place] [address] Alee Elizondo PA Screening Mammogram Bilateral W [place]yllan 09/25/2024 11:00 AM CDT Office Visit [facility] Care at [address] [phone] Jessica Collins NP Influenza A (Primary Dx); Acute cough 09/20/2024 Telephone [facility] Medicine [address] [place] [address] Michael Motta MD [facility] 09/20/2024 8:00 AM CDT Office Visit [facility] Cardiology [address] [address] [address] [place] [address] eDvika Marin MD Venous insufficiency (chronic) (peripheral) (Primary Dx); Mixed hyperlipidemia 09/14/[address] [phone] Codi Branham 09/13/2024 1:44 PM CDT - 09/13/2024 11:59 PM CDT Hospital Encounter [facility] Di[facility] Imaging [facility] [place] [address] Chronic pain of right knee Discharge Disposition: Discharge to home or self care 09/13/2024 2:45 PM CDT Office Visit [facility] Medicine [address] [place] [address] [place] [phone] Michael Motta MD Chronic pain of right knee (Primary Dx); History of total knee arthroplasty, right 09/04/2024 Results Follow-Up [facility] [address] [place] [address] [place] [phone] Alee Elizondo PA SCAN - LABS 08/31/[address] [place] [phone] Alee Elizondo PA Medical Question/Miscellaneous 08/31/2024 Orders Only [address] [place] [phone] Provider, MD Tania from Last 3 Months Allergies Active Allergy [...] has had evaluation by Urology at [facility] and has been told there [...] prescribed. Assessment & Plan (08/07/2023 7:55 PM STEREO EQUIPMENT REPAIRER): Persistent sinusitis symptoms along with cough. Will [...] provided. Assessment & Plan (05/07/2024 8:56 PM STEREO EQUIPMENT REPAIRER): Discussed the patient's BMI. The BMI is [...] provided. Assessment & Plan (09/06/2023 9:38 AM STEREO EQUIPMENT REPAIRER): Discussed the patient's BMI. The BMI is above average. BMI management plan is completed. BMI Follow-up includes: nutrition counseling, exercise counseling and education provided. Patient has an obesity-related condition (not limited to: hypertension, obstructive sleep apnea, osteoarthritis, hyperlipidemia, diabetes, etc.). Therefore, morbid obesity may be documented for patients with a BMI between 35.00-39.99. Assessment & Plan (08/07/2023 7:51 PM STEREO EQUIPMENT REPAIRER): Discussed the patient's BMI. The BMI is above average. BMI management plan is completed. BMI Follow-up includes: nutrition counseling, exercise counseling and education provided. Patient has an obesity-related condition (not limited to: hypertension, obstructive sleep apnea, osteoarthritis, hyperlipidemia, diabetes, etc.). Therefore, morbid obesity may be documented for patients with a BMI between 35.00-39.99. Assessment & Plan (08/03/2023 7:45 AM STEREO EQUIPMENT REPAIRER): Discussed the patient's BMI. The BMI is above average. BMI management plan is completed. BMI Follow-up includes: nutrition counseling, exercise counseling and education provided. Primary osteoarthritis of right knee 07/08/2023 Assessment & Plan (05/07/2024 8:56 PM STEREO EQUIPMENT REPAIRER): Patient has arthritis in the right knee. Planning a total knee replacement with Dr. Alexus Motta on May 30 Assessment & Plan (08/03/2023 8:28 AM STEREO EQUIPMENT REPAIRER): Continue per ortho. She is seeing some improvement but it is difficult to know if the knee is rheumatoid versus osteo versus other etiology. Will await recommendations from JACQUI Raya but definitely encouraged her to become active as soon as possible. Status post total knee replacement using cement, right 05/19/2023 Assessment & Plan (06/02/2023 4:56 PM STEREO EQUIPMENT REPAIRER): Status post total knee replacement with Dr. Ge Sexton 04 May. She has just been released from rehab following up for her TCM visit. She appears to have an area of cellulitis at the incision site. She is also complaining of increased pain. Will check CBC CMP and inflammatory markers along with an x-ray. She plans to go to [facility] for the workup. Will follow up [...] 12/20/2022 Assessment & Plan (05/07/2024 8:55 PM STEREO EQUIPMENT REPAIRER): Patient is on medication for her rheumatoid arthritis managed by [facility] Assessment & Plan (01/22/2024 8:13 PM CDT): Medications from [facility] contribute to her immunosuppressive state. Assessment & Plan (09/06/2023 9:41 AM STEREO EQUIPMENT REPAIRER): Medications are managed by [facility] for her rheumatoid arthritis Assessment & Plan (04/06/2023 7:44 PM CDT): Managed by [facility]. Currently on Plaquenil methotrexate Orencia folic [...] has had evaluation by Urology at [facility] and has been told there [...] capacity. Assessment & Plan (09/06/2023 9:41 AM STEREO EQUIPMENT REPAIRER): Continue per . She did not tolerate [...] Pate. Assessment & Plan (07/18/2022 10:20 AM STEREO EQUIPMENT REPAIRER): CT revealed pelvic lipomatosis that is compressing [...] 02/11/2022 Assessment & Plan (09/06/2023 9:41 AM STEREO EQUIPMENT REPAIRER): No change. Dysfunction of both eustachian tubes 02/11/2022 Myalgia, lower leg 01/11/2022 PLMD (periodic limb movement disorder) Assessment & Plan (11/06/2024 9:20 AM CDT): The patient is unaware that her limbs are moving at night when she sleeps. Assessment & Plan (08/02/2024 11:49 AM STEREO EQUIPMENT REPAIRER): Asymptomatic Assessment & Plan (06/22/2022 10:31 AM STEREO EQUIPMENT REPAIRER): Will continue Requip 1 mg nightly Assessment [...] bedtime. Assessment & Plan (07/13/2021 11:25 AM STEREO EQUIPMENT REPAIRER): Due to the patient stating that she [...] hydroxychloroquine Assessment & Plan (08/23/2024 10:16 AM STEREO EQUIPMENT REPAIRER): Hepatitis negative 06/2020 Tspot negative 06/2020 Continue routine lab monitoring Maintain routine eye exams throughout the duration of taking hydroxychloroquine Assessment & Plan (07/30/2024 8:24 AM STEREO EQUIPMENT REPAIRER): Hepatitis negative 06/2020 Tspot negative 06/2020 Continue [...] hydroxychloroquine Assessment & Plan (09/01/2023 8:34 AM STEREO EQUIPMENT REPAIRER): Hepatitis negative 06/2020 Tspot negative 06/2020 Continue routine lab monitoring Maintain routine eye exams throughout the duration of taking hydroxychloroquine Assessment & Plan (06/29/2023 2:19 PM STEREO EQUIPMENT REPAIRER): Hepatitis negative 06/2020 Tspot negative 06/2020 Continue [...] hydroxychloroquine Assessment & Plan (07/14/2022 2:58 PM STEREO EQUIPMENT REPAIRER): Hepatitis negative 06/2020 Tspot negative 06/2020 Continue routine lab monitoring Maintain routine eye exams throughout the duration of taking hydroxychloroquine Assessment & Plan (06/03/2022 9:58 AM STEREO EQUIPMENT REPAIRER): Hepatitis negative 06/2020 Tspot negative 06/2020 Continue [...] hydroxychloroquine Assessment & Plan (09/03/2021 8:29 AM STEREO EQUIPMENT REPAIRER): Hepatitis negative 06/2020 Tspot negative 06/2020 Continue routine lab monitoring Maintain routine eye exams throughout the duration of taking hydroxychloroquine Assessment & Plan (06/03/2021 4:17 PM STEREO EQUIPMENT REPAIRER): Hepatitis negative 06/2020 Tspot negative 06/2020 Continue [...] hydroxychloroquine Assessment & Plan (09/02/2020 1:16 PM STEREO EQUIPMENT REPAIRER): Hepatitis negative 06/2020 Tspot negative 06/2020 Continue routine lab monitoring Maintain routine eye exams throughout the duration of taking hydroxychloroquine Assessment & Plan (07/09/2020 12:23 PM STEREO EQUIPMENT REPAIRER): Hepatitis negative 06/2020 Tspot negative 06/2020 Continue [...] 08/13/2019 Assessment & Plan (05/07/2024 8:54 PM STEREO EQUIPMENT REPAIRER): Patient with chronic constipation. Has been on [...] linzess Assessment & Plan (08/13/2019 8:57 AM STEREO EQUIPMENT REPAIRER): On Movantik with Dr. Soto Herpes zoster [...] diabetes. Assessment & Plan (05/07/2024 8:55 PM STEREO EQUIPMENT REPAIRER): Pre-diabetes/hyperglycemia is a precursor to Dm. Stressed [...] diabetes. Assessment & Plan (09/06/2023 9:40 AM STEREO EQUIPMENT REPAIRER): Pre-diabetes/hyperglycemia is a precursor to Dm. Stressed [...] diabetes. Assessment & Plan (09/11/2021 11:22 PM STEREO EQUIPMENT REPAIRER): Pre-diabetes/hyperglycemia is a precursor to Dm. Stressed importance of working on diet (decrease your simple sugars and one carbohydrate with each meal) and increase you exercise to achieve weight loss and this will help prevent you from progressing to diabetes. Assessment & Plan (05/29/2021 8:18 PM STEREO EQUIPMENT REPAIRER): Pre-diabetes/hyperglycemia is a precursor to Dm. Stressed [...] diabetes. Assessment & Plan (08/31/2020 9:34 AM STEREO EQUIPMENT REPAIRER): Pre-diabetes is a precursor to Dm. Stressed [...] diabetes. Assessment & Plan (08/13/2019 9:00 AM STEREO EQUIPMENT REPAIRER): This is a significant, separately identifiable problem [...] b.I.d. Assessment & Plan (05/07/2024 8:54 PM STEREO EQUIPMENT REPAIRER): Depression symptoms are stable with Wellbutrin XL 150 Cymbalta 60 b.i.d. Assessment & Plan (04/21/2024 8:50 PM CDT): Depression symptoms are stable with the Wellbutrin XL 150 and Cymbalta 60 b.i.d. Assessment & Plan (01/22/2024 8:11 PM CDT): Depression symptoms are stable with Wellbutrin and Cymbalta Assessment & Plan (09/06/2023 9:40 AM STEREO EQUIPMENT REPAIRER): Depression is stable with Wellbutrin and Cymbalta Assessment & Plan (08/03/2023 8:31 AM STEREO EQUIPMENT REPAIRER): Stable with Cymbalta 60 and Wellbutrin XL [...] Cymbalta Assessment & Plan (09/11/2021 11:26 PM STEREO EQUIPMENT REPAIRER): Continue Wellbutrin and Cymbalta Assessment & Plan (05/29/2021 8:22 PM STEREO EQUIPMENT REPAIRER): Continue Wellbutrin and Cymbalta Assessment & Plan (05/24/2021 10:39 AM STEREO EQUIPMENT REPAIRER): Continue Wellbutrin and Cymbalta Assessment & Plan (12/24/2020 9:07 AM CDT): Continue wellbutrin and cymbalta Assessment & Plan (08/31/2020 9:35 AM STEREO EQUIPMENT REPAIRER): Continue wellbutrin and cymbalta Assessment & Plan (02/18/2020 9:47 PM CDT): Stable with the Cymbalata Assessment & Plan (08/13/2019 8:59 AM STEREO EQUIPMENT REPAIRER): Stable with Cymbalta and Wellbutrin Assessment & [...] regimen. Med list updated to reflect the [id number] one daily and Prozac 40mg. Mixed hyperlipidemia 03/29/2018 Assessment & Plan (10/22/2024 1:06 PM CDT): Encouraged patient to follow low fat/low chol diet like the Mediterranean diet. Increase good fats in the diet. Increase exercise. Monitor labs as needed. Continue Crestor 10 Assessment & Plan (05/07/2024 8:54 PM STEREO EQUIPMENT REPAIRER): Encouraged patient to follow low fat/low chol [...] statin Assessment & Plan (09/06/2023 9:42 AM STEREO EQUIPMENT REPAIRER): Encouraged patient to follow low fat/low chol [...] statin Assessment & Plan (09/11/2021 11:26 PM STEREO EQUIPMENT REPAIRER): Encouraged patient to follow low fat/low chol diet like the Mediterranean diet. Increase good fats in the diet. Increase exercise. Monitor labs as needed. Continue statin Assessment & Plan (05/29/2021 8:22 PM STEREO EQUIPMENT REPAIRER): Encouraged patient to follow fat/low chol diet like the Mediterranean diet. Increase good fats in the diet. Increase exercise. Monitor labs as needed. Continue statin Assessment & Plan (05/24/2021 10:39 AM STEREO EQUIPMENT REPAIRER): Encouraged patient to follow fat/low chol diet like the Mediterranean diet. Increase good fats in the diet. Increase exercise. Monitor labs as needed. Continue statin Assessment & Plan (12/24/2020 9:07 AM CDT): Encouraged patient to follow fat/low chol diet like the Mediterranean diet. Increase good fats in the diet. Increase exercise. Monitor labs as needed. Continue statin Assessment & Plan (08/31/2020 9:34 AM STEREO EQUIPMENT REPAIRER): Encouraged patient to follow fat/low chol diet like the Mediterranean diet. Increase good fats in the diet. Increase exercise. Monitor labs as needed. Continue statin Assessment & Plan (02/18/2020 9:46 PM CDT): Encouraged patient to continue low fat/low chol diet. Continue exercise. Increase good fats in the diet. Monitor labs as needed. Assessment & Plan (08/13/2019 8:59 AM STEREO EQUIPMENT REPAIRER): Encouraged patient to continue low fat/low chol [...] future Assessment & Plan (09/06/2023 9:40 AM STEREO EQUIPMENT REPAIRER): Continue PPI Assessment & Plan (04/06/2023 7:36 PM CDT): Continue PPI p.r.n. Assessment & Plan (01/20/2023 8:13 PM CDT): Continue PPI Assessment & Plan (09/12/2022 6:13 PM CDT): Continue PPI p.r.n. Assessment & Plan (06/03/2022 3:40 PM STEREO EQUIPMENT REPAIRER): Pyrosis poorly controlled on Nexium. Pt has [...] PPI Assessment & Plan (09/11/2021 11:26 PM STEREO EQUIPMENT REPAIRER): Continue PPI Assessment & Plan (12/24/2020 9:05 AM CDT): Continue PPI Assessment & Plan (02/18/2020 9:45 PM CDT): Continue PPI. Saw Dr. Linton for increased GERD sxs. If persist, encouraged to followup again with Dr. Linton. Assessment & Plan (08/13/2019 8:58 AM STEREO EQUIPMENT REPAIRER): Stable with PPI Assessment & Plan (04/29/2019 [...] exertion) Assessment & Plan (06/22/2022 10:30 AM STEREO EQUIPMENT REPAIRER): Patient is not currently using inhalers. She [...] water pressure while sleeping. Her DME is [facility]. I have sent an order over to [facility] due to her changing insurances. Assessment & Plan (10/22/2024 1:05 PM CDT): Managed by Dr. Dunn. Continue CPAP Assessment & Plan (08/02/2024 11:49 AM STEREO EQUIPMENT REPAIRER): Due to the patient stating the pressure [...] readjusted. She denied need for supplies. DME [facility] Assessment & Plan (05/07/2024 8:55 PM STEREO EQUIPMENT REPAIRER): Continue with CPAP. Assessment & Plan (04/21/2024 8:49 PM CDT): Continue per Dr. Dunn. Has all her needed supplies for CPAP which she is using every night. Continue with Requip 0.5 mg HS for restless leg Assessment & Plan (01/22/2024 8:08 PM CDT): Continue CPAP per Dr. Dunn Assessment & Plan (09/06/2023 9:40 AM STEREO EQUIPMENT REPAIRER): Continue CPAP Assessment & Plan (06/21/2023 10:14 AM STEREO EQUIPMENT REPAIRER): Patient continue to wear her CPAP at [...] CPAP Assessment & Plan (06/22/2022 10:31 AM STEREO EQUIPMENT REPAIRER): Will continue CPAP therapy at an auto titrating range of 7-20 cm water pressure. Denied need for supplies. DME [facility] Assessment & Plan (05/02/2022 9:15 [...] pressure. Patient denied need for supplies. DME [facility]. Patient is benefitting CPAP Assessment & Plan (09/11/2021 11:22 PM STEREO EQUIPMENT REPAIRER): Continue CPAP. Patient has all needed supplies. Assessment & Plan (07/13/2021 11:27 AM STEREO EQUIPMENT REPAIRER): Due to the patient stating she does not have enough pressure in her machine, I have increased the pressure to 13 cm water pressure. The patient denied need for for supplies. [facility]. Have also ordered a new smart card set at 13 cm water pressure. Benefitting from CPAP therapy Assessment & Plan (05/29/2021 8:14 PM STEREO EQUIPMENT REPAIRER): Continue CPAP. Assessment & Plan (02/17/2021 11:09 AM CDT): The patient continues to be compliant with her CPAP at 8 cm water pressure. She has developed worsening daytime hypersomnia. She also has morning headaches and dry mouth. I have recommended proceeding with a CPAP titration study starting at 8 cm water pressure. Her DME is [facility]. Assessment & Plan (12/24/2020 9:04 AM CDT): Continue CPAP. Would like to see Pulm/sleep at [facility] as difficulty getting in consistently at [place] and most of her care is now [facility] Assessment & Plan (02/18/2020 9:44 PM CDT): Continue CPAP Assessment & Plan (08/13/2019 8:46 AM STEREO EQUIPMENT REPAIRER): Using the CPAP. Has equipment as needed. [...] planned. Assessment & Plan (08/23/2024 10:16 AM STEREO EQUIPMENT REPAIRER): 02/2021 XR L knee with mild to moderate OA, now s/p B TKA. Following with ortho as planned. Assessment & Plan (07/30/2024 11:23 AM STEREO EQUIPMENT REPAIRER): 02/2021 XR L knee with mild to [...] March. Assessment & Plan (09/01/2023 3:42 PM STEREO EQUIPMENT REPAIRER): 02/2021 XR L knee with mild to moderate OA, R knee negative. Had injections with ortho without benefit, now s/p L TKA. Assessment & Plan (06/30/2023 12:46 PM STEREO EQUIPMENT REPAIRER): 02/2021 XR L knee with mild to [...] g/d. Assessment & Plan (07/15/2022 1:41 PM STEREO EQUIPMENT REPAIRER): 02/2021 XR L knee with mild to moderate OA, R knee negative. Had injections with ortho with benefit. Unable to afford PT. Can continue Tylenol Arthritis, not to exceed 4 g/d. Assessment & Plan (06/03/2022 9:58 AM STEREO EQUIPMENT REPAIRER): 02/2021 XR L knee with mild to [...] evaluation. Assessment & Plan (09/03/2021 11:27 AM STEREO EQUIPMENT REPAIRER): XR L knee with mild to moderate [...] able. Assessment & Plan (06/04/2021 10:27 AM STEREO EQUIPMENT REPAIRER): XR L knee with mild to moderate [...] above. Assessment & Plan (09/03/2020 12:23 PM STEREO EQUIPMENT REPAIRER): 10/27/2017 XR L knee: mild tricompartmental OA. Will continue meloxicam as above. Assessment & Plan (07/09/2020 12:24 PM STEREO EQUIPMENT REPAIRER): 10/27/2017 XR L knee: mild tricompartmental OA. [...] Plan (10/22/2024 1:04 PM CDT): Continue per [facility]. Continue Plaquenil methotrexate Orencia folic acid Mobic gabapentin. Assessment & Plan (08/23/2024 12:54 PM STEREO EQUIPMENT REPAIRER): Moderate cdai with report of increasing pain, [...] needed. Assessment & Plan (07/30/2024 11:22 AM STEREO EQUIPMENT REPAIRER): Moderate cdai with report of increased morning [...] near her home ([facility] in [place]), but the following month will need to plan for an in person visit. She expressed understanding and agreement with this plan. Continue methotrexate 20 mg weekly, folic acid 2 mg daily, and hydroxychloroquine 200 mg BID. Labs today as below. Assessment & Plan (05/07/2024 8:55 PM STEREO EQUIPMENT REPAIRER): Managed by [facility]. Currently on Plaquenil and methotrexate and Orencia folic acid Mobic and gabapentin. Stressed she needs to be in contact with her systems integration manager on when and which medicines to stop for the surgery. Assessment & Plan (04/21/2024 8:49 PM CDT): Continue per [facility]. They currently manage her rheumatoid arthritis [...] Plan (01/22/2024 8:17 PM CDT): Continue per [facility] as they manage her condition. Assessment & Plan (11/24/2023 9:58 AM CDT): Low cdai without inflammatory sounding pain. Will continue methotrexate 20 mg weekly, folic acid 2 mg daily, hydroxychloroquine 200 mg BID, and Orencia and monitor. Labs today as below. Follow up in 3 months or sooner as needed. Assessment & Plan (09/06/2023 9:42 AM STEREO EQUIPMENT REPAIRER): Rheumatoid arthritis is managed by [facility]. Currently on Plaquenil methotrexate Orencia and folic acid Assessment & Plan (09/01/2023 3:39 PM STEREO EQUIPMENT REPAIRER): Overall stable without notable synovitis and no inflammatory sounding pain. Will continue methotrexate 20 mg weekly, folic acid 2 mg daily, hydroxychloroquine 200 mg BID, and Orencia and monitor. Labs today as below. Follow up in 3 months or sooner as needed. Assessment & Plan (08/03/2023 8:28 AM STEREO EQUIPMENT REPAIRER): Continue with rheumatology. Assessment & Plan (06/30/2023 12:43 PM STEREO EQUIPMENT REPAIRER): Overall stable without notable synovitis and no inflammatory sounding pain. Will continue methotrexate 20 mg weekly, folic acid 2 mg daily, hydroxychloroquine 200 mg BID, and Orencia and monitor. Labs today as below. Assessment & Plan (06/02/2023 4:49 PM STEREO EQUIPMENT REPAIRER): Continue per Rheumatology Assessment & Plan (04/06/2023 7:35 PM CDT): Continue per Rheumatology. She has been in discussion with them on what medications to stop prior to her knee surgery. She states she was told to take all of her medicines accept the Orencia. Assessment & Plan (01/20/2023 8:12 PM CDT): Continue per Rheumatology [facility] Assessment & Plan (01/13/2023 [...] Plan (09/12/2022 6:06 PM CDT): Continue with [facility] Assessment & Plan (07/15/2022 1:41 PM STEREO EQUIPMENT REPAIRER): Low cdai. Significantly improved after IM triamcinolone [...] needed. Assessment & Plan (06/03/2022 3:37 PM STEREO EQUIPMENT REPAIRER): High cdai. Previously felt well controlled with current regimen. Due to burden of disease will give patient a triamcinolone injection. Patient made aware of SE of steroids including but not limited to HTN, increased blood glucose, cataracts, glaucoma, AVN, and osteoporosis with intermediate designer use. Should she flare again shortly after [...] (01/23/2022 4:57 PM CDT): Continue management per [facility] Assessment & Plan (12/07/2021 9:02 AM CDT): Low cdai. Denies inflammatory sounding joint pain. Continue methotrexate 25 mg weekly, folic acid to 2 mg daily, Rinvoq 15 mg daily, hydroxychloroquine 200 mg BID, and cyclobenzaprine 5 mg qhs and monitor. Labs today as below. Plan for follow up in 3 months or sooner as needed. Assessment & Plan (09/11/2021 11:14 PM STEREO EQUIPMENT REPAIRER): Continue per [facility] Assessment & Plan (09/03/2021 11:25 AM STEREO EQUIPMENT REPAIRER): cdai = 12. Pt suspects increased joint [...] needed. Assessment & Plan (06/04/2021 10:25 AM STEREO EQUIPMENT REPAIRER): Low cdai. Denies inflammatory sounding pain at present. Will plan to continue methotrexate 25 mg weekly, folic acid to 2 mg daily, Rinvoq 15 mg daily, hydroxychloroquine 200 mg BID, and cyclobenzaprine 5 mg qhs and monitor. Labs today as below. Plan for follow up in 3 months or sooner as needed. Assessment & Plan (05/31/2021 9:15 PM STEREO EQUIPMENT REPAIRER): Continue per Rheumatology Assessment & Plan (05/29/2021 8:13 PM STEREO EQUIPMENT REPAIRER): Continue per Rheumatology. Currently on Plaquenil methotrexate and folic acid. Assessment & Plan (05/24/2021 10:38 AM STEREO EQUIPMENT REPAIRER): Continue per Rheumatology Assessment & Plan (03/05/2021 [...] needed. Assessment & Plan (09/03/2020 12:22 PM STEREO EQUIPMENT REPAIRER): Low cdai. Continues to feel improved with [...] needed. Assessment & Plan (08/31/2020 9:34 AM STEREO EQUIPMENT REPAIRER): Continue per [facility] Assessment & Plan (07/09/2020 12:22 PM STEREO EQUIPMENT REPAIRER): 64yoF with a h/o seropositive RA diagnosed [...] time. Assessment & Plan (06/04/2020 11:14 AM STEREO EQUIPMENT REPAIRER): 64yoF with a h/o seropositive RA diagnosed [...] needed. Assessment & Plan (05/14/2020 9:33 PM STEREO EQUIPMENT REPAIRER): Refer to new Curator as Dr. Soto has . Assessment & Plan (02/18/2020 9:46 PM CDT): Continue per Rhe[facility] Assessment & Plan (08/13/2019 8:59 AM STEREO EQUIPMENT REPAIRER): Continue per Dr. Soto Assessment & Plan [...] and indigestion Reclast 03/28/2019, 07/09/2020, 07/2021 Pause [id number] Restart ZOL 11/25 Assessment & Plan (11/08/2024 [...] recommendations from the bone metabolism group at [facility] Dr. Martinez. Appointment is scheduled in November. Has been on Reclast and Forteo. She also continues with vitamin-D Assessment & Plan (01/22/2024 8:08 PM CDT): Patient with osteoporosis. Has not been responding to Reclast. Forteo was tried by [facility] and she could not tolerate. Has [...] of her osteoporosis, recommended evaluation by the [facility], unfortunately their first available appt was in November 2024. Recommended today that she check with [facility] Osteoporosis center (at [facility]) to see how far out they are scheduling new patients, though she does not like this option due to distance from her house. Assessment & Plan (09/06/2023 9:40 AM STEREO EQUIPMENT REPAIRER): Managed by [facility]. Per patient they are making a referral to bone metabolism at [facility] she has not seen significant improvement with the Forteo or the Reclast. Assessment & Plan (09/01/2023 3:43 PM STEREO EQUIPMENT REPAIRER): DEXA: Lspine BMD 0.809 Tscore -2.2, L [...] of her osteoporosis, recommend evaluation by the [facility], provided contact info for Dr. Castillo. Pt in agreement with plan. Assessment & Plan (06/30/2023 12:49 PM STEREO EQUIPMENT REPAIRER): DEXA: Lspine BMD 0.809 Tscore -2.2, L [...] PM CDT): Continue to monitor. Managed by [facility]. Patient is on Reclast calcium [...] exercise Assessment & Plan (07/15/2022 1:42 PM STEREO EQUIPMENT REPAIRER): 01/27/2021 DEXA: Lspine -1.8, L femoral neck -1.9, L total hip -1.2, R femoral neck -2.3, R total hip -1.0, FRAX major 32% and hip 7%. Received Reclast 07/2021. Continue yearly Reclast, scheduled for 07/22 Assessment & Plan (06/03/2022 3:38 PM STEREO EQUIPMENT REPAIRER): 01/27/2021 DEXA: Lspine -1.8, L femoral neck [...] Plan (01/23/2022 5:02 PM CDT): Managed by [facility] currently on Reclast calcium and vitamin-D Assessment & Plan (12/07/2021 9:04 AM CDT): 01/27/2021 DEXA: Lspine -1.8, L femoral neck -1.9, L total hip -1.2, R femoral neck -2.3, R total hip -1.0, FRAX major 32% and hip 7%. Received Reclast 07/2021. Continue yearly Reclast. Assessment & Plan (09/03/2021 11:26 AM STEREO EQUIPMENT REPAIRER): 01/27/2021 DEXA: Lspine -1.8, L femoral neck -1.9, L total hip -1.2, R femoral neck -2.3, R total hip -1.0, FRAX major 32% and hip 7%. Received Reclast 07/2021. Continue yearly reclast and daily vitamin D-calcium supplement. Assessment & Plan (06/04/2021 10:27 AM STEREO EQUIPMENT REPAIRER): 01/27/2021 DEXA: Lspine -1.8, L femoral neck [...] order provided today, she will schedule at [facility] Assessment & Plan (12/24/2020 9:06 AM CDT): Continue Reclast thru Rheum Continue calcium, vitD and exercise Assessment & Plan (12/03/2020 10:45 AM CDT): Vitamin D level was 68. Received Reclast 07/09/2020. Last DEXA per available records was 01/31/2019, due this summer - order provided today, she will schedule at [facility] Assessment & Plan (09/03/2020 12:23 PM STEREO EQUIPMENT REPAIRER): Vitamin D level was 68. Received Reclast 07/09/2020. Last DEXA per available records was 01/31/2019, due this summer. Assessment & Plan (07/09/2020 12:23 PM STEREO EQUIPMENT REPAIRER): Overdue for Reclast, last infusion was 03/28/2019, will receive infusion today. Vitamin D level was 68 Last DEXA per available records was 01/31/2019 Assessment & Plan (06/04/2020 11:15 AM STEREO EQUIPMENT REPAIRER): Overdue for Reclast, last infusion was 03/28/2019, will check benefits. Recheck vitamin D level now. Last DEXA per available records was 01/31/2019 Assessment & Plan (02/18/2020 9:46 PM CDT): Calcium, vit D and exercise. Continue to monitor DXA Assessment & Plan (08/13/2019 8:58 AM STEREO EQUIPMENT REPAIRER): Continue with Calcium, Vit D and Exercise. Recheck DXA iin Fall 2019 with mammogram Resolved Problems Problem Noted Date Diagnosed Date Resolved Date Encounter for pre-operative examination 05/07/2024 10/09/2024 Assessment & Plan (05/07/2024 8:57 PM STEREO EQUIPMENT REPAIRER): I have examined this patient and ordered [...] Krishnamurthy. Assessment & Plan (09/06/2023 9:41 AM STEREO EQUIPMENT REPAIRER): New diagnosis Dupree's esophagus made on 08/2023 EGD at [place] with Dr. Daniels Stressed importance of very close follow-up BMI 37.0-37.9, adult 09/06/2023 024 Assessment & Plan (10/13/2023 7:38 AM CDT): Discussed the patient's BMI. The BMI is above average. BMI management plan is completed. BMI Follow-up includes: nutrition counseling, exercise counseling and education provided. Assessment & Plan (09/06/2023 9:42 AM STEREO EQUIPMENT REPAIRER): Discussed the patient's BMI. The BMI is above average. BMI management plan is completed. BMI Follow-up includes: nutrition counseling, exercise counseling and education provided. Hyperglycemia 09/06/2023 09/06/2023 Positive depression screening 09/06/2023 09/06/2023 Annual physical exam 09/06/2023 024 Assessment & Plan (09/06/2023 9:43 AM STEREO EQUIPMENT REPAIRER): Encouraged healthy lifestyle, good nutrition and exercise. Encouraged Calcium and Vitamin D and weight bearing exercise for bone health. Reviewed immunizations Reviewed age appropirate screenings. Orthopedic aftercare 08/09/2023 025 Right knee pain 08/09/2023 09/06/2023 Sinus congestion 08/07/2023 09/06/2023 Assessment & Plan (08/07/2023 7:54 PM STEREO EQUIPMENT REPAIRER): Persistent sinusitis symptoms along with cough. Will start doxy b.i.d.. Start antihistamine (Claritin OR Zyrtec), Mucinex 12hour and Steroid nasal spray (Flonase). Push fluids. Rest. Supportive care. If sxs worsen or don\'t improve, pt is to followup in the office. BMI 35.0-35.9,adult 08/03/2023 09/06/19 24 Assessment & Plan (08/07/2023 7:51 PM STEREO EQUIPMENT REPAIRER): Discussed the patient's BMI. The BMI is above average. BMI management plan is completed. BMI Follow-up includes: nutrition counseling, exercise counseling and education provided. Assessment & Plan (08/03/2023 8:29 AM STEREO EQUIPMENT REPAIRER): Discussed the patient's BMI. The BMI is [...] 01/22/2024 Assessment & Plan (06/02/2023 4:57 PM STEREO EQUIPMENT REPAIRER): Later in the day received critical lab call for a CO2 value at 42. My staff contacted the patient and she was instructed to go to the ER for further evaluation to determine underlying cause. She states throughout the day she has noticed a little bit more shortness of breath. She plans to have her brother drive her to [place]. Charge nurse was notified of the arrival [...] surgery. Will defer cardiac clearance to her elevators inspector. Her chronic medical conditions are stable. [facility] as instructed her to hold [...] provided. Assessment & Plan (06/02/2023 8:27 AM STEREO EQUIPMENT REPAIRER): Discussed the patients BMI: The BMI is [...] [place] on May 04 at [facility]. Need for vaccination for Strep pneumoniae [...] symptoms worsen or do not respond to [id number] allergy medicines within the next week she [...] provided. Assessment & Plan (08/23/2022 2:19 PM STEREO EQUIPMENT REPAIRER): Discussed the patient's BMI. The BMI is [...] plans Assessment & Plan (07/18/2022 10:20 AM STEREO EQUIPMENT REPAIRER): CT revealed pelvic lipomatosis that is compressing [...] 12/20/2022 Assessment & Plan (07/18/2022 10:21 AM STEREO EQUIPMENT REPAIRER): CT revealed pelvic lipomatosis that is compressing [...] plan, Assessment & Plan (07/08/2022 12:33 PM STEREO EQUIPMENT REPAIRER): Patient has had dysuria. She was started [...] STAT abd/pelvis with and without contrast at [place]. Check labs STAT. Acute right flank pain 07/08/202204/06 Assessment & Plan (07/18/2022 10:21 AM STEREO EQUIPMENT REPAIRER): CT revealed pelvic lipomatosis that is compressing [...] plan, Assessment & Plan (07/08/2022 5:58 PM STEREO EQUIPMENT REPAIRER): Images from the original note were not [...] STAT abd/pelvis with and without contrast at [place]. Check labs STAT. STAT CT Abd/pelvis without [...] 09/06/2023 Assessment & Plan (07/08/2022 12:33 PM STEREO EQUIPMENT REPAIRER): Patient has had dysuria. She was started [...] STAT abd/pelvis with and without contrast at [place]. Check labs STAT. Assessment & Plan (07/06/2022 8:50 AM STEREO EQUIPMENT REPAIRER): Pt presents with dysuria. Urine dip completed. [...] 35.00-39.99. Assessment & Plan (07/18/2022 10:23 AM STEREO EQUIPMENT REPAIRER): Discussed the patient's BMI. The BMI is above average. BMI management plan is completed. BMI Follow-up includes: nutrition counseling, exercise counseling and education provided. Assessment & Plan (07/08/2022 12:30 PM STEREO EQUIPMENT REPAIRER): Discussed the patient's BMI. The BMI is [...] She has received multiple injections from her systems integration manager regarding her knee but yesterday when [...] 01/23/2022 Assessment & Plan (09/11/2021 11:28 PM STEREO EQUIPMENT REPAIRER): Patient has never had a full skin exam. She has quite a few lesions scattered and would benefit from a full exam. Will make referral Annual physical exam 09/11/2021 07/23/2 022 Assessment & Plan (09/11/2021 11:28 PM STEREO EQUIPMENT REPAIRER): Encouraged healthy lifestyle, good nutrition and exercise. Encouraged Calcium and Vitamin D and weight bearing exercise for bone health. Reviewed immunizations Reviewed age appropirate screenings. Cough 08/13/2021 01/23/2022 Assessment & Plan (08/13/2021 3:43 PM STEREO EQUIPMENT REPAIRER): Patient to presume positive COVID/FLU until results are available and plan to self isolate for up to 10 days from the onset of sxs. Check COVID/FLU test thru [facility] collection site in [place]. Let pt know the newest CDC recommendations [...] future. Assessment & Plan (07/13/2021 11:28 AM STEREO EQUIPMENT REPAIRER): I have ordered the patient Claritin 10 [...] provided. Assessment & Plan (09/11/2021 11:27 PM STEREO EQUIPMENT REPAIRER): Obesity is unchanged. Discussed the patient's BMI. The BMI is above average. BMI management plan is completed. BMI Follow-up includes: nutrition counseling, exercise counseling and education provided. Assessment & Plan (05/29/2021 8:24 PM STEREO EQUIPMENT REPAIRER): Obesity is unchanged. Discussed the patient's BMI. The BMI is above average. BMI management plan is completed. BMI Follow-up includes: nutrition counseling, exercise counseling and education provided. Assessment & Plan (05/12/2021 1:26 PM STEREO EQUIPMENT REPAIRER): Obesity is unchanged. Discussed the patient's BMI. The BMI is above average. BMI management plan is completed. BMI Follow-up includes: nutrition counseling, exercise counseling and education provided. BMI 37.0-37.9, adult 05/12/2021 022 Assessment & Plan (09/11/2021 11:27 PM STEREO EQUIPMENT REPAIRER): Obesity is unchanged. Discussed the patient's BMI. The BMI is above average. BMI management plan is completed. BMI Follow-up includes: nutrition counseling, exercise counseling and education provided. Assessment & Plan (05/29/2021 8:24 PM STEREO EQUIPMENT REPAIRER): Obesity is unchanged. Discussed the patient's BMI. The BMI is above average. BMI management plan is completed. BMI Follow-up includes: nutrition counseling, exercise counseling and education provided. Assessment & Plan (05/12/2021 1:26 PM STEREO EQUIPMENT REPAIRER): Obesity is unchanged. Discussed the patient's BMI. The BMI is above average. BMI management plan is completed. BMI Follow-up includes: nutrition counseling, exercise counseling and education provided. Tinea corporis 04/14/2021 01/23/2022 Assessment & Plan (05/31/2021 9:15 PM STEREO EQUIPMENT REPAIRER): Improving with Lotrisone. Keep the area clean and dry Assessment & Plan (05/29/2021 8:24 PM STEREO EQUIPMENT REPAIRER): Lotrisone to pharmacy. Encouraged her to keep the area clean and dry use her dryer to dry the skin before applying the cream. She is to call if symptoms worsen or do not resolve. Need for immunization against influenza 04/14/2021 05/31/2021 Assessment & Plan (05/29/2021 8:24 PM STEREO EQUIPMENT REPAIRER): Fluid updated in the office Medicare annual wellness visit, subsequent 04/13/2021 05/31/2021 Assessment & Plan (05/29/2021 8:23 PM STEREO EQUIPMENT REPAIRER): Encouraged healthy lifestyle, good nutrition and exercise. [...] 12/30/2020 Assessment & Plan (08/31/2020 9:31 AM STEREO EQUIPMENT REPAIRER): Error. This should be right calf but PT order sent and corrected so unable to remove. Fatigue 08/31/2020 09/06/2023 Assessment & Plan (04/06/2023 7:43 PM CDT): Probably multifactorial. Check labs and followup to re-evaluate Assessment & Plan (05/02/2022 9:16 PM CDT): Probably multifactorial. Check labs and followup to re-evaluate Assessment & Plan (08/31/2020 9:34 AM STEREO EQUIPMENT REPAIRER): Probably multifactorial. Check labs and followup to re-evaluate Pain in both lower extremities 08/31/2020 09/06/2023 Assessment & Plan (09/01/2023 3:41 PM STEREO EQUIPMENT REPAIRER): Cramping lower leg pain has resolved with [...] 021 Assessment & Plan (08/31/2020 9:33 AM STEREO EQUIPMENT REPAIRER): Obesity is unchanged. Discussed the patient's BMI. The BMI is above average. BMI management plan is completed. BMI Follow-up includes: nutrition counseling, exercise counseling and education provided. Pain of right calf 08/26/2020 Assessment & Plan (08/31/2020 9:31 AM STEREO EQUIPMENT REPAIRER): This is a significant, separately identifiable problem that was evaluated and managed on the same day as the wellness exam Unable to rule out DVT with her calf pain/sxs. Check STAT Venous doppler. Recvd Results and discussed with patient via phone. Negative for DVT. Recommend PT. Prefers [place] Annual physical exam 08/24/2020 Assessment & Plan (08/31/2020 9:34 AM STEREO EQUIPMENT REPAIRER): Encouraged healthy lifestyle, good nutrition and exercise. Encouraged Calcium and Vitamin D and weight bearing exercise for bone health. Reviewed immunizations Reviewed age appropirate screenings. Dizziness 05/07/2020 09/06/2023 Assessment & Plan (05/14/2020 9:35 PM STEREO EQUIPMENT REPAIRER): Suspect the dizziness is inner ear related. [...] imaging. Assessment & Plan (05/07/2020 1:49 PM STEREO EQUIPMENT REPAIRER): Declines to report to er now 'I [...] 05/14/2020 Assessment & Plan (05/07/2020 1:49 PM STEREO EQUIPMENT REPAIRER): Declines to report to er now 'I [...] 12/30/2020 Assessment & Plan (05/07/2020 1:49 PM STEREO EQUIPMENT REPAIRER): Declines to report to er now 'I [...] provided Assessment & Plan (05/31/2021 9:15 PM STEREO EQUIPMENT REPAIRER): Mammogram order provided Assessment & Plan (02/18/2020 9:47 PM CDT): Mammogram order provided today Medicare annual wellness visit, subsequent 02/15/2020 02/15/2020 Precordial pain 09/04/2019 09/06/2023 Assessment & Plan (08/07/2023 7:50 PM STEREO EQUIPMENT REPAIRER): Workup in the hospital. Cardiology states her [...] inhaler. Assessment & Plan (07/13/2021 11:26 AM STEREO EQUIPMENT REPAIRER): The patient will continue with Dulera 2 [...] 020 Assessment & Plan (08/13/2019 8:59 AM STEREO EQUIPMENT REPAIRER): Encouraged healthy lifestyle, good nutrition and exercise. Encouraged Calcium and Vitamin D and weight bearing exercise for bone health. Reviewed immunizations Reviewed age appropirate screenings. Obesity, morbid, BMI 40.0-49.9 08/13/2019 09/23/2020 Assessment & Plan (08/26/2020 7:10 AM STEREO EQUIPMENT REPAIRER): Obesity is unchanged. Discussed the patient's BMI. The BMI is above average. BMI management plan is completed. BMI Follow-up includes: nutrition counseling, exercise counseling and education provided. Assessment & Plan (05/14/2020 9:33 PM STEREO EQUIPMENT REPAIRER): Obesity is unchanged. Discussed the patient's BMI. [...] provided. Assessment & Plan (08/13/2019 8:58 AM STEREO EQUIPMENT REPAIRER): Obesity is unchanged. Discussed the patient's BMI. [...] change Assessment & Plan (08/13/2019 9:01 AM STEREO EQUIPMENT REPAIRER): This is a significant, separately identifiable problem [...] 01/22/2024 Assessment & Plan (09/06/2023 9:42 AM STEREO EQUIPMENT REPAIRER): Probably multifactorial. Check labs and followup to re-evaluate Assessment & Plan (09/03/2021 11:28 AM STEREO EQUIPMENT REPAIRER): She notes increased fatigue and lack of [...] re-evaluate Assessment & Plan (08/13/2019 9:08 AM STEREO EQUIPMENT REPAIRER): Probably multifactorial. Check labs and followup to re-evaluate Check labs prior to next visit BMI 40.0-44.9, adult 08/02/2019 020 Assessment & Plan (08/13/2019 8:57 AM STEREO EQUIPMENT REPAIRER): Obesity is unchanged. Discussed the patient's BMI. The BMI is above average. BMI management plan is completed. BMI Follow-up includes: nutrition counseling, exercise counseling and education provided. Assessment & Plan (08/02/2019 7:21 AM STEREO EQUIPMENT REPAIRER): Obesity is unchanged. Discussed the patient's BMI. The BMI is above average. BMI management plan is completed. BMI Follow-up includes: nutrition counseling, exercise counseling and education provided. Morbid obesity 08/02/2019 08/13/2019 Assessment & Plan (08/02/2019 7:20 AM STEREO EQUIPMENT REPAIRER): Obesity is unchanged. Discussed the patient's BMI. The BMI is above average. BMI management plan is completed. BMI Follow-up includes: nutrition counseling, exercise counseling and education provided. Acute non-recurrent maxillary sinusitis 08/02/2019 08/13/2019 Assessment & Plan (08/02/2019 7:47 AM STEREO EQUIPMENT REPAIRER): Start antibiotic, antihistamine, Mucinex and Steroid nasal [...] is being sent directly to [facility] and they were working her in [...] 21 Assessment & Plan (05/14/2020 9:33 PM STEREO EQUIPMENT REPAIRER): Completed Doxy and steroid. No s/s infection. [...] p.r.n. Assessment & Plan (08/13/2019 8:59 AM STEREO EQUIPMENT REPAIRER): Continue with NSAIDs prn Atheroscler of [place] artery of both legs with intermit claudication 10/31/2018 12/20/2022 Assessment & Plan (09/11/2021 11:23 PM STEREO EQUIPMENT REPAIRER): Continue per vascular. She is on aspirin and statin Assessment & Plan (12/24/2020 9:03 AM CDT): Sxs stable. On ASA, statin and encouraged daily exercise. Assessment & Plan (02/18/2020 9:43 PM CDT): Continue per cardio. On ASA and statin Assessment & Plan (08/13/2019 8:45 AM STEREO EQUIPMENT REPAIRER): Continues with Dr. Alonso salmeron Assessment & Plan (11/01/2018 11:00 PM CDT): Pt sxs well controlled. On ASA Coronary artery disease of n ative artery of [place] heart with stable angina pectoris 10/31/2018 12/30/2020 Assessment & Plan (08/13/2019 8:36 AM STEREO EQUIPMENT REPAIRER): On ASA and Nitrate. Continue per cardio Depression 07/16/2018 09/11/2021 Frontal sinusitis 06/26/2018 12/24/2020 Leukopenia 03/29/2018 12/30/2020 Other chronic pain 08/05/2017 3 Chronic seasonal allergic rh initis due to pollen 04/25/2017 12/30/2020 Assessment & Plan (12/24/2020 9:03 AM CDT): Continue current regimen with singulair and otc Assessment & Plan (02/18/2020 9:44 PM CDT): Continue with otc regimen Assessment & Plan (08/13/2019 8:46 AM STEREO EQUIPMENT REPAIRER): Continue current regimen Assessment & Plan (11/01/2018 [...] potassium Assessment & Plan (09/11/2021 11:26 PM STEREO EQUIPMENT REPAIRER): Bp is stable/in acceptable range for any co-morbidities. Encouraged to limit sodium intake and exercise for weight control. Currently stable without medication Assessment & Plan (05/29/2021 8:19 PM STEREO EQUIPMENT REPAIRER): Bp is stable/in acceptable range for any co-morbidities. Encouraged to limit sodium intake and exercise for weight control. Continue Lasix is helping with the swelling and addition. Blood pressure stable Assessment & Plan (05/24/2021 10:38 AM STEREO EQUIPMENT REPAIRER): Continue Lasix potassium Assessment & Plan (12/24/2020 9:05 AM CDT): Bp is stable/in acceptable range for any co-morbidities. Encouraged to limit sodium intake and exercise for weight control. Assessment & Plan (08/31/2020 9:32 AM STEREO EQUIPMENT REPAIRER): Bp is stable/in acceptable range for any co-morbidities. Encouraged to limit sodium intake and exercise for weight control. Stable with laxis currently Assessment & Plan (02/18/2020 9:44 PM CDT): Bp is stable/in acceptable range for any co-morbidities. Encouraged to limit sodium intake and exercise for weight control. Assessment & Plan (08/13/2019 8:57 AM STEREO EQUIPMENT REPAIRER): Bp is stable/in acceptable range for any [...] difficulty pulling them. Recommend finding some on [employer] that fit her calf that she can zip on and off. Showed them to her on [employer] and where to order them. She states she will try to get them. Assessment & Plan (05/31/2021 9:16 PM STEREO EQUIPMENT REPAIRER): Improving slowly. May have been due to the Relafen. She is on 60 of Lasix with potassium 10 mEq daily. Continue with current plan. Keep legs elevated. Utilize compressi to improve cleared. on hose. Call if symptoms worsen or do not continue to improve. Assessment & Plan (05/29/2021 8:23 PM STEREO EQUIPMENT REPAIRER): Persistent lower extremity edema that has improved [...] CMP. Assessment & Plan (05/24/2021 10:39 AM STEREO EQUIPMENT REPAIRER): Patient that her swelling was improving since discharge for over the last day or so it seems to be increasing. Will increase the Lasix to 40mg Start K 10meq daily Recheck labs in 5 days Assessment & Plan (08/31/2020 9:33 AM STEREO EQUIPMENT REPAIRER): Continue lasix Palpitations 12/08/2015 12/30/2020 Overview (10/09/2016): Palpitations Other abnormal glucose 11/11/201508/31 Asthma 10/14/2015 12/24/2020 Assessment & Plan (08/13/2019 8:49 AM STEREO EQUIPMENT REPAIRER): Continue with current regimen and with Pulmonary Assessment & Plan (11/01/2018 10:53 PM CDT): Currently Stable with regimen. Monitor closely with current allergy season. Followup Dr. Gomez as directed. Menopause 10/14/2015 12/30/2020 Cervical pain (neck) 10/14/2015 023 Immunizations Immunization Administration Dates Next Due COVID-19 mRNA (Unipower Battery) 0.3 m L (30 mcg) vaccine (12 [...] 0.6 oz pur e alcohol) [facility] Utilities Answer Date Recorded In the [...] often do you attend chur ch or church services? 1 to 4 times [...] place to sleep or slept in a detention (including now)? No 05/27/2023 PHQ-9 Answer Date [...] were you homeless or living in a detention (including now)? No 05/30/2024 Personal Safety Answer Date Recorded Have you ever been in or are you currently in a harmful physical or emotional relationship or is someone making you feel afraid or unsafe? Denies 05/30/2024 Comments No Sex and Gender Information Value Date Recorded Sex Assigned at Not on file Legal Sex Female 8:04 PM STEREO EQUIPMENT REPAIRER Gender Identity Female 02/15/2020 6:08 PM [...] 11/21/2024 10:32 AM CDT Plan of Treatment Not on file Medical Devices Implanted Type Area Endoscopy Technican Device Identifier Shelf Expiration Date Model / Serial / Lot [employer] Simplex P Radiopaque Full Dose Cement Bone Sterile 6191-1-010 - [id number] Implanted:Qty: 2 on 05/04/2023 by Michael Motta MD at [facility] Bone Cement Left: Knee [employer] 05/03/2025 6191-1-010 / 6191-1-001 / [id number] [employer] Simplex P Radiopaque Full Dose Cement Bone Sterile 6191-1-010 - [id number] Implanted:Qty: 2 on 05/30/2024 by Michael Motta MD at [facility] Bone Cement Right: Patella [employer] [id number] 05/03/2026 6191-1-010 / / [id number] [employer] Persona 14mm 30+ Mm Knee Tibia Taper Extension Stem [id number] - [id number] - [id number] Implanted:Qty: 1 on 05/04/2023 by Michael Motta MD at [facility] Left: Knee [employer] [id number] 02/15/2033 [id number] / [id number] 14 / [id number] [employer] Persona Cemented Cruciate Retaining Knee Left 7 Narrow Component [id number] - [id number] 1 - [id number] Implanted:Qty: 1 on 05/04/2023 by Michael Motta MD at [facility] Left: Knee [employer] [id number] 10/25/2032 [id number] / [id number] 01 / [id number] [employer] Baseplate Tibial Knee Cemented Left Fixed Stemmed Persona Size D Tivanium [id number] - [id number] 1 - [id number] Implanted:Qty: 1 on 05/04/2023 by Michael Motta MD at [facility] Left: Knee [employer] [id number] 09/11/2032 [id number] / [id number] 01 / [id number] [employer] Persona 11mm Knee Left 6-7 C-D Insert Articular Vivacit-E Sterile [id number] - [id number] 1 - [id number] Implanted:Qty: 1 on 05/04/2023 by Michael Motta MD at [facility] Left: Knee [employer] [id number] 12/28/2025 [id number] / 67-3925-796- 11 / [id number] [employer] Persona 32mm Knee Component Patellar All Poly Latex Free 82-4065-647-32 - [id number] Implanted:Qty: 1 on 05/04/2023 by Michael Motta MD at [facility] [employer] 12/19/2027 [id number] / / [id number] [employer] Baseplate Tibial Knee Cemented Right Fixed Stemmed Persona Size C Tivanium [id number] - [id number] Implanted:Qty: 1 on 05/30/2024 by Michael Motta MD at [facility] Right: Knee [employer] [id number] 03/22/2033 [id number] / / [id number] [employer] Persona 29mm Knee Component Patellar All Poly Latex Free [id number] - [id number] Implanted:Qty: 1 on 05/30/2024 by Michael Motta MD at [facility] Right: Knee [employer] [id number] 12/18/2028 [id number] / / [id number] [employer] Persona 13mm Cruciate Retain Knee Right 6-7 Cd Insert Articular Latex Free [id number] - [id number] Implanted:Qty: 1 on 05/30/2024 by Michael Motta MD at [facility] Right: Patella [employer] [id number] 05/04/2025 [id number] / / [id number] [employer] Persona Cruciate Retaining Cemented Knee Right 7 Narrow Component [id number] - [id number] Implanted:Qty: 1 on 05/30/2024 by Michael Motta MD at [facility] Right: Knee [employer] [id number] 12/27/2033 [id number] / / [id number] [employer] Persona 14mm 30+ Mm Knee Tibia Taper Extension Stem [id number] - [id number] Implanted:Qty: 1 on 05/30/2024 by Michael Motta MD at [facility] Right: Knee [employer] [id number] 04/11/2034 [id number] / / [id number] Procedures Procedure Name Priority Date/Time Associated Diagnosis [...] HEPATITIS C ANTIBODY Routine 06/04/2020 10:29 AM STEREO EQUIPMENT REPAIRER Encounter for screening for other viral diseases [...] Alee OSMAN LAB URINE ORDERABLES Final Result [facility] [address] [place] [address] * SCAN - LABS (11/22/2024 3:36 PM CDT) us Sangita OSMAN Final Res ult * Iron profile w/ IBC (11/22/2024 9:03 AM CDT) Iron 112 45 - 160 mcg/dL [facility] TIBC 303 250 - 450 mcg/dL (calc) [facility] Iron saturation 37 16 - 45 % (calc) [facility] Blood 11/22/2024 9:03 AM CDT 11/22/2024 9:03 AM CDT us Alee OSMAN LAB BLOOD ORDERABLES Final Result [facility] [address] [address] * (ABNORMAL) CBC with auto differential (11/22/2024 [...] BLOOD ORDERABLES Final Result Performing Organization Address [facility]/ZIP Co de Phone Number [facility] [address] [place] [address] * Ferritin (11/22/2024 9:03 AM CDT) Ferritin 182 16 - 288 ng/mL [facility] Blood 11/22/2024 9:03 AM CDT 11/22/2024 9:03 AM CDT Alee OSMAN LAB BLOOD ORDERABLES Final Result Performing Organization Address [facility] Co de Phone Number [facility] [address] [place] [address] * Vitamin B12 (11/22/2024 9:03 AM CDT) Vitamin B12 755 200 - 1,100 pg/mL [facility] 11/22/2024 9:03 AM CDT 11/22/2024 9:03 AM CDT Alee OSMAN LAB BLOOD ORDERABLES Final Result Performing Organization Address [facility] Co de Phone Number [facility] [address] [place] [address] * CBC with auto differential (11/21/2024 4:04 PM CDT) Blood Sangita OSMAN LAB BLOOD ORDERABLES Edit ed Result - Final [facility] * Differential, auto (11/21/2024 1:29 PM CDT) Neutrophil abs 2.74 1.50 - 6.50 K/cumm Imm gran abs 0.02 0.00 - 0.10 K/cumm [facility] Lymphocyte abs 0.99 0.80 - 3.30 K/cumm [facility] Monocyte abs 0.43 0.20 - 0.80 K/cumm [facility] Eosinophil abs 0.12 0.00 - 0.50 K/cumm [facility] Basophil abs 0.04 0.00 - 0.10 K/cumm [facility] Neutrophil pct 63.1 % [facility] Comment: Interpretive Data Percent cell count reference ranges are not reported, since discordance with absolute values may lead to misinterpretation of CBC data. Current Interpretive Data was last revised on 2017. Imm gran pct 0.5 % [facility] Comment: Interpretive Data Percent cell count reference ranges are not reported, since discordance with absolute values may lead to misinterpretation of CBC data. Current Interpretive Data was last revised on 2017. Lymphocyte pct 22.8 % [facility] Comment: Interpretive Data Percent cell count reference ranges are not reported, since discordance with absolute values may lead to misinterpretation of CBC data. Current Interpretive Data was last revised on 2017. Monocyte pct 9.9 % [facility] Comment: Interpretive Data Percent cell count reference ranges are not reported, since discordance with absolute values may lead to misinterpretation of CBC data. Current Interpretive Data was last revised on 2017. Eosinophil pct 2.8 % [facility] Comment: Interpretive Data Percent cell count reference ranges are not reported, since discordance with absolute values may lead to misinterpretation of CBC data. Current Interpretive Data was last revised on 2017. Basophil pct 0.9 % [facility] Comment: Interpretive Data Percent cell count reference ranges are not reported, since discordance with absolute values may lead to misinterpretation of CBC data. Current Interpretive Data was last revised on 2017. Blood 11/21/2024 1:29 PM CDT 11/21/2024 3:07 PM CDT Sangita OSMAN LAB BLOOD ORDERABLES Vy l Result Performing Organization Address [facility] Co de Phone Number [address] [employer] [address] * (ABNORMAL) CBC with auto differential (11/21/2024 1:29 PM CDT) [facility] WBC 4.34 3.80 - 9.90 K/cumm Hgb 11.1(L) 11.9 - 15.5 g/dL [facility] Hct 34.5(L) 35.6 - 45.5 % [facility] Plt 218 150 - 400 K/cumm [facility] MPV 10.7 9.1 - 12.3 fL [facility] RBC 3.37(L) 3.90 - 5.20 M/cumm [facility] MCV 102.4(H) 81.3 - 96.4 fL [facility] MCH 32.9 27.1 - 33.3 pg [facility] MCHC 32.2(L) 32.3 - 35.7 g/dL [facility] RDW CV 16.2(H) 11.1 - 14.9 % [facility] RDW SD 58.6(H) 35.7 - 48.1 fL [facility] NRBC abs 0.00 0.00 - 0.01 K/cumm [facility] Blood 11/21/2024 1:29 PM CDT 11/21/2024 3:07 PM CDT Sangita OSMAN LAB BLOOD ORDERABLES Vy l Result Performing Organization Address City/[facility]/ZIP Co de Phone Number [address] [place] [address] * (ABNORMAL) eGFR (11/12/2024 8:36 AM CDT) [facility] eGFR 58(L) >=60 mL/min/1. 73 m2 Comment: [...] ORDERABLES Final Res ult Performing Organization Address City/[facility]/ZIP Co de Phone Number [address] [employer] [place] [address] * Vitamin D 25 hydroxy (11/12/2024 8:36 AM CDT) Vitamin D 25-OH 47.0 30.0 - 80.0 ng/mL Blood 11/12/2024 8:36 AM CDT 11/12/2024 9:04 AM CDT Abisai Martinez MD LAB BLOOD ORDERABLES Final Res ult [address] [place] [place] [address] * Protein electrophoresis with reflex, serum with interpretation (11/12/2024 8:36 AM CDT) Protein, sr 6.4 6.2 - 8.2 g/dL Comment:Testing performed by : [facility], [address] [place]., [address] Albumin 3.6 3.2 - 5.0 g/dL VIANCA BOYLE Comment:Testing performed by : [facility], [address] [facility], [address] Alpha-1 globulin 0.4 0.2 - 0.4 g/dL VIANCA BOYLE Comment:Testing performed by : [facility], [address] [facility], [address] Alpha-2 globulin 0.7 0.5 - 1.0 g/dL VIANCA BOYLE Comment:Testing performed by : [facility], [address] [facility], [address] Beta-1 globulin 0.4 0.3 - 0.6 g/dL VIANCA Comment:Testing performed by : [facility], [address] [facility], [address] Beta-2 globulin 0.4 0.2 - 0.6 g/dL VIANCA Comment:Testing performed by : [facility], [address] [facility], [address] Gamma globulin 0.9 0.5 - 1.7 g/dL VIANCA Comment:Testing performed by : [facility], [address] [place] [address], [address] SPEP interp Please see comment VIANCA Comment: No apparent monoclonal peak Reviewed and signed by Raad Farrar MD, PhD 11/13/2024 Testing performed by: [facility], [address] [place] [address] Blood 11/12/2024 8:36 AM CDT 11/12/2024 11:11 AM CDT us Abisai Martinez MD LAB BLOOD ORDERABLES Final Res ult VIANCA [address] [facility] [place] [address] * Phosphorus (11/12/2024 8:36 AM CDT) [facility] Phosphorus, pl 3.1 2.3 - 4.5 mg/dL Blood 11/12/2024 8:36 AM CDT 11/12/2024 9:04 AM CDT Abisai Martinez MD LAB BLOOD ORDERABLES Final Res ult Performing Organization Address [facility] de Phone Number [address] [place] [address] * (ABNORMAL) PTH (11/12/2024 8:36 AM CDT) [facility] PTH 132(H) 15 - 65 pg/mL Blood 11/12/2024 8:36 AM CDT 11/12/2024 9:04 AM CDT Abisai Martinez MD LAB BLOOD ORDERABLES Final Res ult Performing Organization Address [facility] de Phone Number [address] [place] [address] * (ABNORMAL) Comprehensive metabolic panel (11/12/2024 8:36 AM CDT) [facility] Sodium 139 135 - 145 mmol/L Potassium, pl 4.0 3.3 - 4.9 mmol/L [facility] Chloride 108 97 - 110 mmol/L [facility] CO2 21(L) 22 - 32 mmol/L [facility] Anion gap 10 2 - 15 mmol/L [facility] BUN 22 6 - 25 mg/dL [facility] Creatinine 1.05 0.60 - 1.10 mg/dL [facility] Glucose 101 70 - 199 mg/dL [facility] Comment: Interpretive Data Fasting glucose >/= 126 [...] 2022. Calcium 9.0 8.5 - 10.3 mg/dL [facility] Bilirubin, total 0.3 0.1 - 1.2 mg/dL [facility] Protein, pl 6.9 6.5 - 8.5 g/dL [facility] Albumin 3.8 3.5 - 5.0 g/dL [facility] Alk phos 135(H) 40 - 130 Units/L [facility] ALT 30 7 - 45 Units/L [facility] AST 41 10 - 45 Units/L [facility] Blood 11/12/2024 8:36 AM CDT 11/12/2024 9:04 AM CDT us Abisai Martinez MD LAB BLOOD ORDERABLES Final Res ult Performing Organization Address [facility] Co de Phone Number [address] [place] [address] * Hemoglobin A1c (11/12/2024 8:18 AM CDT) [facility] Signature Hgb A1C 5.6 4.0 - 5.6 % Estimated Average Glucose 114 mg/dL [facility] Comment: The ADA recommends reporting an estimated Average Glucose (eAG) with all Hemoglobin A1c results using the equation derived from a study of 507 normal and diabetic adults. Minority populations were underrepresented and children were not included. (Diabetes Care 31:0404-0431, 2008). The eAG is not equivalent to a fasting glucose. Blood 11/12/2024 8:18 AM CDT 11/12/2024 9:05 AM CDT us Alee OSMAN LAB BLOOD ORDERABLES Final Result Performing Organization Address City/[facility]/ZIP Co de Phone Number [address] [employer] [place] [address] * XR Spine Lumbar 2 or 3 [...] Narrative 11/08/2024 11:38 AM CDT Patient Name: Hany Roy Date of : 1955 Date of scan: 11/08/2024 Bone mineral density was performed on a [employer] Discovery Densitometer. Based on machine cross-calibration and [...] by the International Society of Clinical Densitometry. [id number] Abisai Martinez MD IMG DXA PROCEDURES Final Resul t * (ABNORMAL) CT Abdomen Pelvis WO Contrast (11/05/2024 1:16 PM CDT) Anatomical Region Laterality Modality Body N/A Computed Tomogra phy Impressions 11/05/2024 1:16 PM CDT Re demonstration of multiple non obstructing renal calculi. Findings consistent with prior granulomatous disease No acute findings within the abdomen or pelvis as detailed above Historical Provider MD LUNSF[facility] CT PROCEDURES Edited Result - Final * POC Influenza A/B, COVID-19 antigen (10/23/2024 1:14 PM CDT) [facility] Influenza A Ag, POC Negative Negative [facility] Influenza B Ag, POC Negative Negative [facility] COVID-19 Ag POC Presumptive Negative Presumptive Negative, Invalid [facility] Nasal 10/23/2024 1:14 PM CDT Alee OSMAN POINT OF CARE TEST ORDERAB LES Final Result [facility] [address] [facility] [address] [place] [address] * SCAN - LABS (10/13/2024) Provider Scanning [...] Ag POC Presumptive Negative Presumptive Negative, Invalid [facility] Nasal 09/25/2024 11:0 2 AM CDT Jessica Collins NP POINT OF CARE TEST ORDERABLES Final Result Performing Organization Address City/State/[facility] Co de Phone Number [facility] [address] [place] [address] * XR Knee Right 3 Views (09/13/2024 [...] John Sparrow M.D. RB T: Report ID: [id number] Reading Location: [id number] Procedure Note John Sparrow MD - 09/18/2024 [...] John Sparrow M.D. RB T: Report ID: [id number] Reading Location: [id number] Michael Motta MD IMG XR PROCEDURES Final Re sult * Colonoscopy (07/27/2021) Anatomical Region Laterality Modality Other Historical Provider ENDOSCOPY PROCEDURES Vy l Result * Hepatitis C antibody (06/04/2020 10:29 AM STEREO EQUIPMENT REPAIRER) Hep C Ab NON-REACTI VE NON-REACT ALEXYS [facility] SIGNAL TO CUT-OFF 0.02 <1.00 [facility] Comment: HCV antibody was non-reactive. There is no laboratory evidence of HCV infection. In most cases, no further action is required. However, if recent HCV exposure is suspected, a test for HCV RNA (test code 78712) is suggested. For additional information please refer to http://education.[employer]/faq/FJO47x3 (This link is being provided for informational/ educational purposes only.) Blood specimen (specimen) 06/04/2020 10:29 AM STEREO EQUIPMENT REPAIRER 06/04/2020 10:30 AM STEREO EQUIPMENT REPAIRER Sangita OSMAN LAB MICROBIOLOGY - GENERA L ORDERABLES Final Result [facility] [address] [place] [address] from Last 3 Months or Most Recently Relevant to Health Maintenance Insurance [employer]AGE [employer] Advance Directives For more information, please contact: [phone] Documents on File Type Date Recorded Patient Mask Inspector Expl anation ADVANCE DIRECTIVE 05/17/2024 2:13 PM [employer] Inspector-Medical * Full Code (Latest Code Status on File) Date Activated Date Inactivated Comments 05/30/2024 12:38 PM 06/05/2024 6:31 PM * Full Code Date Activated Date Inactivated Comments 05/04/2023 2:33 PM 05/07/2023 3:07 AM * Full Code Date Activated Date Inactivated Comments 03/22/2021 4:39 PM 03/25/2021 6:17 PM Care Teams Supply Chain Development Manager Relationship Specialty Start Date End Date Alee Elizondo PA [address] [place], [place] [id number] PCP - General Internal Medicine 07/05/23 Sharan Linton MD Referring Physician Gastroenterology 10/31/18 Martha Starks MD Consulting Physician Cardiology 12/24/20 Shama Hines MD [address] [facility], [address] [address] Consulting Physician Pain Management 01/19/21 Artis Grewal MD [address] [place] [address] Consulting Physician Rheumatology 01/30/21 Amy Mayes NP [address] [address] Nurse Practitioner Cardiovascular Disease 04/20/24 Shailesh Dunn MD [address] [address] Consulting Physician Pulmonary Disease 04/20/24 Sangita Farrar PA [address] [place] [address] Physician Adult Education Professional Rheumatology 05/15/24
--- OUTSIDE RECORDS SUMMARY | 2024-12-01 12:13 | XMS_ITS | Encounter Summary ---
Author Organization [facility] Healthcare Address [address] [place] [address] Care Team Providers Care Class C Driver Name Role Phone Sharan Linton MD Unavailable [phone] Martha Starks MD Unavailable [phone] Shama Hines MD Unavailable Artis Grewal MD Unavailable [phone] Alee Elizondo Primary Care Provider +- [phone] Amy Mayes NP Unavailable +[phone] Shailesh Dunn MD Unavailable +[phone] Sangita Farrar Unavailable +[phone] Encounter Details Date Type Department Care Team (Late st Contact Info) Description 12/08/[address] [facility] [place] Information Management [address] [place] [address] Scanning, Provider Social History Tobacco Use Types [...] you attend chur ch or restoration services? More than 4 times per year [...] file Legal Sex Female 8:04 PM AUTO APPRAISER Gender Identity Female 02/15/2020 6:08 PM CDT [...] documented as of this encounter Care Teams Class C Driver Relationship Specialty Start Date End Date Alee Elizondo PA 1095 [facility] 500 [place] [address] PCP - General Internal Medicine 07/05/23 Sharan Linton MD Referring Physician Gastroenterology 10/31/18 Martha Starks MD Consulting Physician Cardiology 12/24/20 Shama Hines MD 4700 [facility] [address] Consulting Physician Pain Management 01/19/21 Artis Grewal MD [address] [place] [address] Consulting Physician Rheumatology 01/30/21 Amy Mayes NP [address] [address] Nurse Practitioner Cardiovascular Disease 04/20/24 Shailesh Dunn MD 4600 [facility] [address] [address] Consulting Physician Pulmonary Disease 04/20/24 Sangita Farrar PA [address] [place] [address] Physician Slasher Sawyer Rheumatology 05/15/24 documented as of this encounter
--- OUTSIDE RECORDS SUMMARY | 2024-12-01 12:13 | XMS_ITS | Encounter Summary ---
Author Organization [facility] Healthcare Address [address] [place] [address] Care Team Providers Care Memorandum Statement Clerk Name Role Phone Sharan Linton MD Unavailable [phone] Martha Starks MD Unavailable [phone] Shama Hines MD Unavailable Artis Grewal MD Unavailable +[phone] Alee Elizondo Primary Care Provider +[phone] Amy Mayes NP Unavailable +[phone] Shailesh Dunn MD Unavailable [phone] Sangita Farrar Unavailable +[phone] Encounter Details Date Type Department Care Team (Late st Contact Info) Description 03/02/[address] [facility] Medical Group Family Medicine [address] [facility] [address] [place] [address] Alee Elizondo PA [address] [facility] [address] [place] [address] Social History Tobacco Use Types Packs/Day Years Used Date Smoking Tobacco: Never Smokeless Tobacco: Never Comments:Never used Alcohol Use Standard Drinks/Week Comments No 0 (1 standard drink = 0.6 oz pur e alcohol) [facility] Utilities Answer Date Recorded In the past 12 months has [employer], gas, oil, or water company threatened to [...] often do you attend chur ch or latter day services? More than 4 times per year 05/27/2023 Do you belong to any clubs o r organizations such as voodoo groups, unions, fraternal or athletic groups, or [...] place to sleep or slept in a snf (including now)? No 05/27/2023 PHQ-9 Answer Date [...] on file Legal Sex Female 8:04 PM PLY CUTTER Gender Identity Female 02/15/2020 6:08 PM [...] documented as of this encounter Care Teams Memorandum Statement Clerk Relationship Specialty Start Date End Date Alee Elizondo PA [address] [place] [address] PCP - General Internal Medicine 07/05/23 Sharan Linton MD Referring Physician Gastroenterology 10/31/18 Martha Starks MD Consulting Physician Cardiology 12/24/20 Shama Hines MD 4700 [facility], [facility] [address] [place] [address] Consulting Physician Pain Management 01/19/21 Artis Greawl MD [address] [place] [address] Consulting Physician Rheumatology 01/30/21 Amy Mayes NP [address] [address] Nurse Practitioner Cardiovascular Disease 04/20/24 Shailesh Dunn MD 4600 [facility] [address] [address] Consulting Physician Pulmonary Disease 04/20/24 Sangita Farrar PA [address] [place] [address] Physician Manager Placement Rheumatology 05/15/24 documented as of this encounter
--- OUTSIDE RECORDS SUMMARY | 2024-12-01 12:54 | XMS_ITS | Encounter Summary ---
Author Organization [facility] Facility Care Team Providers Care Upsetting 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 Name Role Phone Alee Elizondo Primary Care Provider + [phone] Sharan Linton MD Unavailable [phone] Taisha Gomez MD Unavailable [phone] Parag Soto MD Unavailable [phone] RaziaMartha singh MD Unavailable +[phone] Puneet Uribe MD Unavailable +[phone] Shama Hines MD Unavailable Artis Grewal MD Unavailable [phone] Harrison Pena RN Unavailable +[phone] Nafisa Gregg RN Unavailable +[phone] Tho Kelsey MD Primary Care Provider +[phone] Alee Elizondo Primary Care Provider + [phone] Amy Mayes NP Unavailable +[phone] Shailesh Dunn MD Unavailable +[phone] Sangita Farrar Unavailable +[phone] Encounter Details Date Type Department Care Team (Latest Contact Info) Description 03/24/2016 Orders Only [facility] Provider, MD Tania [address] [place] [address] Social History Tobacco Use Types Packs/Day Years Used Date Smoking Tobacco: Never Alcohol Use Standard Drinks/Week Comments No 0 (1 standard drink = 0.6 oz pur e alcohol) Comments Unknown Sex and Gender Information Value Date Recorded Sex Assigned at Not on file Legal Sex Female 8:04 PM EXTENSION SPECIALIST Gender Identity Female 02/15/2020 6:08 [...] COVID: Suspected 08/13/2021 08/14/2021 08/14/2021 3:06 AM EXTENSION SPECIALIST COVID: Suspected 08/14/2021 08/14/2021 08/15/2021 3:05 AM EXTENSION SPECIALIST COVID: Suspected 08/14/2021 08/14/2021 08/15/2021 6:25 AM EXTENSION SPECIALIST COVID: Suspected 06/02/2023 06/02/2023 06/02/2023 7:25 PM EXTENSION SPECIALIST COVID: Suspected 07/26/2023 07/26/2023 07/26/2023 3:10 PM EXTENSION SPECIALIST COVID: Suspected 09/25/2024 09/25/2024 09/25/2024 11:03 AM CDT Influenza, adult 09/25/2024 09/25/2024 10/02/2024 3:05 AM CDT COVID: Suspected 10/23/2024 10/23/2024 10/23/2024 1:15 PM CDT documented as of this encounter Care Teams Upsetting 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 Relationship Specialty Start Date End Date Alee Elizondo PA 1095 [facility] 500 [place] [address] PCP - General Internal Medicine 02/01/17 06/29/23 Tho Kelsey MD [address] [place] [address] [address] [facility] [address] [place] [address] PCP - General Family Medicine 06/30/23 07/04/23 Alee Elizondo PA [address] [facility] [address] [facility] 500 [place] [address] PCP - General Internal Medicine 07/05/23 Sharan Linton MD 1095 [facility] [place] [facility] 500 [place] [address] Referring Physician Gastroenterology 10/31/18 Taisha Gomez MD 1095 [facility] [place] [address] [place] [address] Referring Physician Pulmonary Disease 10/31/18 12/23/20 Parag Soto MD 1095 [facility] [place] [address] [place] [address] Referring Physician Rheumatology 10/31/18 12/23/20 Martha Starks MD 1095 [facility] [address] [place] [address] Consulting Physician Cardiology 12/24/20 Puneet Uribe MD [address] [facility] [address] [place] [address] Consulting Physician Rheumatology 12/24/20 01/29/21 Shama Hines MD 4700 [facility], [facility] 230 [place] [address] Consulting Physician Pain Management 01/19/21 Artis Grewal MD [address] [place] [address] Consulting Physician Rheumatology 01/30/21 Harrison Pean RN [address] [place] [address] Master Automotive Glass Technician 05/30/23 09/04/23 Nafisa Gregg, JULIUS [address] [place] [address] [address] [place] [address] Master Automotive Glass Technician 06/06/23 06/12/23 Amy Mayes NP [address] [address] Nurse Practitioner Cardiovascular Disease 04/20/24 Shailesh Dunn MD [address] [address] Consulting Physician Pulmonary Disease 04/20/24 Sangita Farrar PA [address] [place] [address] Physician Radio News Anchor Rheumatology 05/15/24 documented as of this encounter
--- OUTSIDE RECORDS SUMMARY | 2024-12-01 12:54 | XMS_ITS | Encounter Summary ---
Author Organization [facility] Facility Care Team Providers Care Rice Milling Supervisor Name Role Phone Alee Elizondo Primary Care Provider + [phone] Sharan Linton MD Unavailable [phone] Taisha Gomez MD Unavailable [phone] Parag Soto MD Unavailable [phone] RaziaMartha singh MD Unavailable +[phone] Puneet Uribe MD Unavailable +[phone] Shama Hines MD Unavailable Artis Grewal MD Unavailable [phone] Harrison Pena RN Unavailable +[phone] Nafisa Gregg RN Unavailable +[phone] Tho Kelsey MD Primary Care Provider [phone] Alee Elizondo Primary Care Provider + [phone] Amy Mayes NP Unavailable +[phone] Shailesh Dunn MD Unavailable +[phone] Sangita Farrar Unavailable +[phone] Encounter Details Date Type Department Care Team (Latest Contact Info) Description 11/04/2015 Orders Only [facility]IN[facility] Provider, MD Tania [address] [place] [address] Social History Tobacco Use Types Packs/Day Years Used Date Smoking Tobacco: Never Assessed Comments Unknown Sex and Gender Information Value Date Recorded Sex Assigned at Not on file Legal Sex Female 8:04 PM FIREWALL ADMINISTRATOR Gender Identity Female 02/15/2020 6:08 PM CDT [...] COVID: Suspected 08/13/2021 08/14/2021 08/14/2021 3:06 AM FIREWALL ADMINISTRATOR COVID: Suspected 08/14/2021 08/14/2021 08/15/2021 3:05 AM FIREWALL ADMINISTRATOR COVID: Suspected 08/14/2021 08/14/2021 08/15/2021 6:25 AM FIREWALL ADMINISTRATOR COVID: Suspected 06/02/2023 06/02/2023 06/02/2023 7:25 PM FIREWALL ADMINISTRATOR COVID: Suspected 07/26/2023 07/26/2023 07/26/2023 3:10 PM FIREWALL ADMINISTRATOR COVID: Suspected 09/25/2024 09/25/2024 09/25/2024 11:03 AM CDT Influenza, adult 09/25/2024 09/25/2024 10/02/2024 3:05 AM CDT COVID: Suspected 10/23/2024 10/23/2024 10/23/2024 1:15 PM CDT documented as of this encounter Care Teams Rice Milling Supervisor Relationship Specialty Start Date End Date Alee Elizondo PA [address] [address] PCP - General Internal Medicine 02/01/17 06/29/23 Tho Kelsey MD [address] [place] [address] DR [facility] 300 [place] [address] PCP - General Family Medicine 06/30/23 07/04/23 Alee Elizondo PA [address] [place] [address] PCP - General Internal Medicine 07/05/23 Sharan Linton MD [address] [facility] [address] [place], [place] [address] Referring Physician Gastroenterology 10/31/18 Taisha Gomez MD [address] [facility] [address] [place], [place] [address] Referring Physician Pulmonary Disease 10/31/18 12/23/20 Parag Soto MD [address] [facility] [address] [place] [address] Referring Physician Rheumatology 10/31/18 12/23/20 Martha Starks MD [address] [place] [place], [place] [address] Consulting Physician Cardiology 12/24/20 Puneet Uribe MD [address] [facility] 110 [place] [address] Consulting Physician Rheumatology 12/24/20 01/29/21 Shama Hines MD 4700 [facility], [facility] 230 [place] [address] Consulting Physician Pain Management 01/19/21 Artis Grewal MD [address] [place] [address] Consulting Physician Rheumatology 01/30/21 Harrison Pena, JULIUS [address] [place] [address] Superintendent 05/30/23 09/04/23 Nafisa Gregg, JULIUS [address] [place] [address] [facility] [address] [place] [address] Superintendent 06/06/23 06/12/23 Amy Mayes NP [address] [address] Nurse Practitioner Cardiovascular Disease 04/20/24 Shailesh Dunn MD [address] [address] Consulting Physician Pulmonary Disease 04/20/24 Sangita Farrar PA [address] [place] [address] Physician Powered Bridge Specialist Rheumatology 05/15/24 documented as of this encounter
--- OUTSIDE RECORDS SUMMARY | 2024-12-01 12:54 | XMS_ITS | Encounter Summary ---
Author Organization [facility] Facility Care Team Providers Care Emergency Physician Name Role Phone Alee Elizondo Primary Care Provider + [phone] Sharan Linton MD Unavailable [phone] Taisha Gomez MD Unavailable [phone] Parag Soto MD Unavailable RaziaMartha singh MD Unavailable [phone] Puneet Uribe MD Unavailable +[phone] Shama Hines MD Unavailable Artis Grewal MD Unavailable [phone] Harrison Pena RN Unavailable +[phone] Nafisa Gregg RN Unavailable Tho Kelsey MD Primary Care Provider +[phone] Alee Elizondo Primary Care Provider + [phone] Amy Mayes NP Unavailable +[phone] Shailesh Dunn MD Unavailable +[phone] Sangita Farrar Unavailable +[phone] Encounter Details Date Type Department Care Team (Latest Contact Info) Description 12/31/2015 Orders Only [facility]IN[facility] Provider, MD Tania [address] [place] [address] Social History Tobacco Use Types Packs/Day Years Used Date Smoking Tobacco: Never Alcohol Use Standard Drinks/Week Comments No 0 (1 standard drink = 0.6 oz pur e alcohol) Comments Unknown Sex and Gender Information Value Date Recorded Sex Assigned at Not on file Legal Sex Female 8:04 PM CARE MANAGER Gender Identity Female 02/15/2020 6:08 PM [...] COVID: Suspected 08/13/2021 08/14/2021 08/14/2021 3:06 AM CARE MANAGER COVID: Suspected 08/14/2021 08/14/2021 08/15/2021 3:05 AM CARE MANAGER COVID: Suspected 08/14/2021 08/14/2021 08/15/2021 6:25 AM CARE MANAGER COVID: Suspected 06/02/2023 06/02/2023 06/02/2023 7:25 PM CARE MANAGER COVID: Suspected 07/26/2023 07/26/2023 07/26/2023 3:10 PM CARE MANAGER COVID: Suspected 09/25/2024 09/25/2024 09/25/2024 11:03 AM CDT Influenza, adult 09/25/2024 09/25/2024 10/02/2024 3:05 AM CDT COVID: Suspected 10/23/2024 10/23/2024 10/23/2024 1:15 PM CDT documented as of this encounter Care Teams Emergency Physician Relationship Specialty Start Date End Date Alee Elizondo PA [address] [place] [place] [address] PCP - General Internal Medicine 02/01/17 06/29/23 Tho Kelsey MD [address] [place] [address] DR [facility] [address] [place] [address] PCP - General Family Medicine 06/30/23 07/04/23 Alee Elizondo PA [address] [facility] [address] [place] [address] PCP - General Internal Medicine 07/05/23 Sharan Linton MD 1095 [facility] [address] [place] [address] Referring Physician Gastroenterology 10/31/18 Taisha Gomez MD 1095 [facility] [address] [place] [address] Referring Physician Pulmonary Disease 10/31/18 12/23/20 Parag Soto MD 1095 [facility] [place] [place] [address] Referring Physician Rheumatology 10/31/18 12/23/20 Martha Starks MD [address] [facility] [address] [place] [place] [address] Consulting Physician Cardiology 12/24/20 Puneet Uribe MD [address] [facility] [address] [place] [address] Consulting Physician Rheumatology 12/24/20 01/29/21 Shama Hines MD 4700 [facility], [facility] [address] [place] [address] Consulting Physician Pain Management 01/19/21 Artis Grewal MD [address] [place] [address] Consulting Physician Rheumatology 01/30/21 Harrison Pena RN [address] [place] [address] Critical Care Rn 05/30/23 09/04/23 Nafisa Gregg RN [address] [place] [address] [address] [place] [address] Critical Care Rn 06/06/23 06/12/23 Amy Mayes NP [address] [address] Nurse Practitioner Cardiovascular Disease 04/20/24 Shailesh Dunn MD [address] [address] Consulting Physician Pulmonary Disease 04/20/24 Sangita Farrar PA [address] [place] [address] Physician Drag Out Worker Rheumatology 05/15/24 documented as of this encounter
--- OUTSIDE RECORDS SUMMARY | 2024-12-01 12:54 | XMS_ITS | Encounter Summary ---
Author Organization [facility] Facility Care Team Providers Care Labor And Delivery Nurse Name Role Phone Alee Elizondo Primary Care Provider + [phone] Sharan Linton MD Unavailable [phone] Taisha Gomez MD Unavailable [phone] Parag Soto MD Unavailable [phone] RaziaMartha singh MD Unavailable +[phone] Puneet Uribe MD Unavailable +[phone] Shama Hines MD Unavailable Artis Grewal MD Unavailable [phone] Harrison Pena RN Unavailable +[phone] Nafisa Gregg RN Unavailable Tho Kelsey MD Primary Care Provider +[phone] Alee Elizondo Primary Care Provider + [phone] Amy Mayes NP Unavailable +[phone] Shailesh Dunn MD Unavailable +[phone] Sangita Farrar Unavailable +[phone] Encounter Details Date Type Department Care Team (Latest Contact Info) Description 09/29/2015 Orders Only [facility]INCONV Provider, MD Tania [address] [place] [address] Social History Tobacco Use Types Packs/Day Years Used Date Smoking Tobacco: Never Assessed Comments Unknown Sex and Gender Information Value Date Recorded Sex Assigned at Not on file Legal Sex Female 8:04 PM INTEGRATED CIRCUIT IC LAYOUT DESIGNER Gender Identity Female 02/15/2020 6:08 PM [...] COVID: Suspected 08/13/2021 08/14/2021 08/14/2021 3:06 AM INTEGRATED CIRCUIT IC LAYOUT DESIGNER COVID: Suspected 08/14/2021 08/14/2021 08/15/2021 3:05 AM INTEGRATED CIRCUIT IC LAYOUT DESIGNER COVID: Suspected 08/14/2021 08/14/2021 08/15/2021 6:25 AM INTEGRATED CIRCUIT IC LAYOUT DESIGNER COVID: Suspected 06/02/2023 06/02/2023 06/02/2023 7:25 PM INTEGRATED CIRCUIT IC LAYOUT DESIGNER COVID: Suspected 07/26/2023 07/26/2023 07/26/2023 3:10 PM INTEGRATED CIRCUIT IC LAYOUT DESIGNER COVID: Suspected 09/25/2024 09/25/2024 09/25/2024 11:03 AM CDT Influenza, adult 09/25/2024 09/25/2024 10/02/2024 3:05 AM CDT COVID: Suspected 10/23/2024 10/23/2024 10/23/2024 1:15 PM CDT documented as of this encounter Care Teams Labor And Delivery Nurse Relationship Specialty Start Date End Date Alee Elizondo PA [address] [address] PCP - General Internal Medicine 02/01/17 06/29/23 Tho Kelsey MD [address] [place] [address] DR [facility] [address] [place] [address] PCP - General Family Medicine 06/30/23 07/04/23 Alee Elizondo PA [address] [place] [address] [place] [address] PCP - General Internal Medicine 07/05/23 Sharan Linton MD [address] [facility] [address] [place], [place] [address] Referring Physician Gastroenterology 10/31/18 Taisha Gomez MD [address] [facility] [address] [place], [place] [address] Referring Physician Pulmonary Disease 10/31/18 12/23/20 Parag Soto MD [address] [facility] [address] [place] [address] Referring Physician Rheumatology 10/31/18 12/23/20 Martha Starks MD [address] [place] [address] [place], [place] [address] Consulting Physician Cardiology 12/24/20 Puneet Uribe MD [address] [facility] [address] [place] [address] Consulting Physician Rheumatology 12/24/20 01/29/21 Shama Hines MD 4700 [facility], [facility] 230 [place] [address] Consulting Physician Pain Management 01/19/21 Artis Grewal MD [address] [place] [address] Consulting Physician Rheumatology 01/30/21 Harrison Pena, JULIUS [address] [place] [address] Diabetes Clinical Manager 05/30/23 09/04/23 Nafisa Gregg, JULIUS [address] [place] [address] [facility] [address] [place] [address] Diabetes Clinical Manager 06/06/23 06/12/23 Amy Mayes NP [address] [address] Nurse Practitioner Cardiovascular Disease 04/20/24 Shailesh Dunn MD [address] [address] Consulting Physician Pulmonary Disease 04/20/24 Sangita Farrar PA [address] [place] [address] Physician Sock Knitting 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 Rheumatology 05/15/24 documented as of this encounter
--- OUTSIDE RECORDS SUMMARY | 2024-12-01 12:54 | XMS_ITS | Encounter Summary ---
Author Organization [facility] Care Team Providers Care Comptometer Operator Name Role Phone Alee Elizondo Primary Care Provider + [phone] Sharan Linton MD Unavailable [phone] Taisha Gomez MD Unavailable [phone] Parag Soto MD Unavailable [phone] RaziaMartha singh MD Unavailable [phone] Puneet Uribe MD Unavailable +[phone] Shama Hines MD Unavailable Artis Grewal MD Unavailable [phone] Harrison Pena RN Unavailable +[phone] Nafisa Gregg RN Unavailable Tho Kelsey MD Primary Care Provider [phone] Alee Elizondo Primary Care Provider + [phone] Amy Mayes NP Unavailable +[phone] Shailesh Dunn MD Unavailable [phone] Sangita Farrar Unavailable +[phone] Encounter Details Date Type Department Care Team (Latest Contact Info) Description 04/19/2016 Orders Only [facility] CLINCONV Provider, MD Tania [address] [place] [address] Social History Tobacco Use Types Packs/Day Years Used Date Smoking Tobacco: Never Alcohol Use Standard Drinks/Week Comments No 0 (1 standard drink = 0.6 oz pur e alcohol) Comments Unknown Sex and Gender Information Value Date Recorded Sex Assigned at Not on file Legal Sex Female 8:04 PM PATTERN MARKING SUPERVISOR Gender Identity Female 02/15/2020 6:08 PM [...] COVID: Suspected 08/13/2021 08/14/2021 08/14/2021 3:06 AM PATTERN MARKING SUPERVISOR COVID: Suspected 08/14/2021 08/14/2021 08/15/2021 3:05 AM PATTERN MARKING SUPERVISOR COVID: Suspected 08/14/2021 08/14/2021 08/15/2021 6:25 AM PATTERN MARKING SUPERVISOR COVID: Suspected 06/02/2023 06/02/2023 06/02/2023 7:25 PM PATTERN MARKING SUPERVISOR COVID: Suspected 07/26/2023 07/26/2023 07/26/2023 3:10 PM PATTERN MARKING SUPERVISOR COVID: Suspected 09/25/2024 09/25/2024 09/25/2024 11:03 AM CDT Influenza, adult 09/25/2024 09/25/2024 10/02/2024 3:05 AM CDT COVID: Suspected 10/23/2024 10/23/2024 10/23/2024 1:15 PM CDT documented as of this encounter Care Teams Comptometer Operator Relationship Specialty Start Date End Date Alee Elizondo PA [address] [facility] [place] 500 [place] [address] PCP - General Internal Medicine 02/01/17 06/29/23 Tho Kelsey MD [address] [place] [address] [address] [facility] [address] [place] [address] PCP - General Family Medicine 06/30/23 07/04/23 Alee Elizondo PA [address] [facility] 500 [place] [address] PCP - General Internal Medicine 07/05/23 Sharan Linton MD 10[address] [facility] [place] 500 [place] [address] Referring Physician Gastroenterology 10/31/18 Taisha Gomez MD 1095 [facility] 500 [place] [address] Referring Physician Pulmonary Disease 10/31/18 12/23/20 Parag Soto MD 1095 [facility] 500 [place] [address] Referring Physician Rheumatology 10/31/18 12/23/20 Martha Starks MD 1095 [facility] 500 [place] [address] Consulting Physician Cardiology 12/24/20 Puneet Uribe MD [address] [facility] 110 [place] [address] Consulting Physician Rheumatology 12/24/20 01/29/21 Shama Hines MD 4700 [facility], [facility] 230 [place] [address] Consulting Physician Pain Management 01/19/21 Artis Grewal MD [address] [place] [address] Consulting Physician Rheumatology 01/30/21 Harrison Pena RN [address] [place] [address] Concrete Mixer Operator Helper 05/30/23 09/04/23 Nafisa Gregg, JULIUS [address] [place] [address] 300 [place] [address] Concrete Mixer Operator Helper 06/06/23 06/12/23 Amy Mayes NP [address] [address] Nurse Practitioner Cardiovascular Disease 04/20/24 Shailesh Dunn MD [address] [address] Consulting Physician Pulmonary Disease 04/20/24 Sangita Farrar PA [address] [place] [address] Physician Spindle Tester Rheumatology 05/15/24 documented as of this encounter
--- OUTSIDE RECORDS SUMMARY | 2024-12-01 12:54 | XMS_ITS | Continuity of Care Document ---
Author Organization [facility] Address [address] [place] [address] [place] [address] Phone Care Team Providers Care Slack Line Yarder Name Role Phone Oswald No DO Unavailable Unavailable Advance Directives Directive Yes / No Effective Date File Name No Information Encounters Encounter Description Practice Location Reason(s) For Visit Diagnoses Date Provider Providers Copied on Encounter [facility], [id number] [place] [address] [address], [place], [place], [id number], [place] tel:[phone] [facility] No Information Oneal Combs. [address] [facility], [place], [address], [place]. tel: [phone] Family History Family Member Type Diagnosis Age [...]
--- OUTSIDE RECORDS SUMMARY | 2024-12-01 12:55 | XMS_ITS | Encounter Summary ---
Author Organization [facility] Address [address] [place] [address] Phone Care Team Providers Care Automatic Toe Laster Name Role Phone Sharan Linton MD Unavailable [phone] Martha Starks MD Unavailable [phone] Shama Hines MD Unavailable Artis Grewal MD Unavailable [phone] Alee Elizondo Primary Care Provider [phone] Amy Mayes NP Unavailable [phone] Shailesh Dunn MD Unavailable [phone] Sangita Farrar Unavailable [phone] Encounter Details Date Type Department Care Team (Late st Contact Info) Description 11/21/2024 Results Follow-Up [facility] [address] [place] [address] Sangita Farrar PA [address] [place] [address] CBC with auto differential, Differential, auto Social History Tobacco Use Types Packs/Day Years Used Date Smoking Tobacco: Never Smokeless Tobacco: Never Comments:Never used Alcohol Use Standard Drinks/Week Comments No 0 (1 standard drink = 0.6 oz pur e alcohol) [facility] Utilities Answer Date Recorded In the past 12 months has th e electric, gas, oil, or water [employer] threatened to shut off services in your [...] any time in the past 12 m [facility], were you homeless or living [...] on file Legal Sex Female 8:04 PM CHURNER Gender Identity Female 02/15/2020 6:08 PM CDT [...] Never 11/22/2024 7:14 AM CDT Doug, Yovana, CLOTH EXAMINER documented as of this encounter Plan of Treatment Not on file documented as of this encounter Visit Diagnoses Not on filedocumented in this encounter Care Teams Automatic Toe Laster Relationship Specialty Start Date End Date Alee Elizondo PA [address] [facility] 500 [place] [address] PCP - General Internal Medicine 07/05/23 Sharan Linton MD Referring Physician Gastroenterology 10/31/18 aMrtha Starks MD Consulting Physician Cardiology 12/24/20 Shama Hines MD 4700 [facility] 230 [place] [address] Consulting Physician Pain Management 01/19/21 Artis Grewal MD [address] [place] [address] Consulting Physician Rheumatology 01/30/21 Amy Mayes NP [address] [facility] 102 [place] [address] Nurse Practitioner Cardiovascular Disease 04/20/24 Shailesh Dunn MD [address] [facility] 200 [place] [address] Consulting Physician Pulmonary Disease 04/20/24 Sangita Farrar PA [address] [place] [address] Physician Biological Chemist Rheumatology 05/15/24 documented as of this encounter
--- OUTSIDE RECORDS SUMMARY | 2024-12-01 12:55 | XMS_ITS | Encounter Summary ---
Author Organization [facility] Healthcare Address [address] [place] [address] Care Team Providers Care Knife Operator Name Role Phone Sharan Linton MD Unavailable [phone] Martha Starks MD Unavailable [phone] Shama Hines MD Unavailable Artis Grewal MD Unavailable [phone] Alee Elizondo Primary Care Provider [phone] Amy Mayes NP Unavailable [phone] Shailesh Dunn MD Unavailable [phone] Sangita Farrar Unavailable [phone] Encounter Details Date Type Department Care Team (Late st Contact Info) Description 11/08/2024 Results Follow-Up [facility] Medical Group Family Medicine [address] [place] [address] Alee Elizondo PA [address] [facility] [address] [place] [address] [place] [address] CT Abdomen Pelvis WO Contrast Social History Tobacco Use Types Packs/Day Years Used Date Smoking Tobacco: Never Smokeless Tobacco: Never Comments:Never used Alcohol Use Standard Drinks/Week Comments No 0 (1 standard drink = 0.6 oz pur e alcohol) [facility] Utilities Answer Date Recorded In the [...] any clubs o r organizations such as faith groups, unions, fraternal or athletic groups, or [...] in the past 12 m [facility], were you homeless or living in a [...] on file Legal Sex Female 8:04 PM METAL BALER Gender Identity Female 02/15/2020 6:08 PM CDT Sexual Orientation Not on file documented as of this encounter Plan of Treatment Not on file documented as of this encounter Visit Diagnoses Not on filedocumented in this encounter Care Teams Knife Operator Relationship Specialty Start Date End Date Alee Elizondo PA 1095 [facility] 500 [place] [address] PCP - General Internal Medicine 07/05/23 Sharan Linton MD Referring Physician Gastroenterology 10/31/18 Martha Starks MD Consulting Physician Cardiology 12/24/20 Shama Hines MD 4700 [facility], [address] [address] Consulting Physician Pain Management 01/19/21 Artis Grewal MD [address] [place] [address] Consulting Physician Rheumatology 01/30/21 Amy Mayes NP [address] [address] Nurse Practitioner Cardiovascular Disease 04/20/24 Shailesh Dunn MD 4600 [facility] [address] [address] Consulting Physician Pulmonary Disease 04/20/24 Sangita Farrar PA [address] [place] [address] Physician Brick Siding Applicator Rheumatology 05/15/24 documented as of this encounter
--- OUTSIDE RECORDS SUMMARY | 2024-12-01 12:55 | XMS_ITS | Encounter Summary ---
Author Organization [facility] Healthcare Address [address] [place] [address] Care Team Providers Care Surgical Resident Name Role Phone Sharan Linton MD Unavailable [phone] Martha Starks MD Unavailable [phone] Shama Hines MD Unavailable Artis Grewal MD Unavailable [phone] Alee Elizondo Primary Care Provider [phone] Amy Mayes NP Unavailable [phone] Shailesh Dunn MD Unavailable [phone] Sangita Farrar Unavailable [phone] Encounter Details Date Type Department Care Team (Late st Contact Info) Description 11/08/2024 Imaging Exam [facility] Medical Group Family Medicine [address] [place] [address] Alee Elizondo PA [address] [facility] [address] [place] [address] [place] [address] Social History Tobacco Use Types Packs/Day Years Used Date Smoking Tobacco: Never Smokeless Tobacco: Never Comments:Never used Alcohol Use Standard Drinks/Week Comments No 0 (1 standard drink = 0.6 oz pur e alcohol) [facility] Utilities Answer Date Recorded In the past 12 months has [employer], gas, oil, or water [employer] threatened to shut off services in [...] any clubs o r organizations such as hindu groups, unions, fraternal or athletic groups, or [...] any time in the past 12 m [facility], were you homeless or living in a senior care (including now)? No 05/30/2024 Personal Safety Answer Date Recorded Have you ever been in or are you currently in a harmful physical or emotional relationship or is someone making you feel afraid or unsafe? 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 Gender Identity Female 02/15/2020 6:08 PM CDT Sexual Orientation Not on file documented as of this encounter Plan of Treatment Not on file documented as of this encounter Visit Diagnoses Not on filedocumented in this encounter Care Teams Surgical Resident Relationship Specialty Start Date End Date Alee Elizondo PA 1095 [facility] [address] [place] [address] PCP - General Internal Medicine 07/05/23 Sharan Linton MD Referring Physician Gastroenterology 10/31/18 Martha Starks MD Consulting Physician Cardiology 12/24/20 Shama Hines MD 4700 [facility], [address] [address] Consulting Physician Pain Management 01/19/21 Artis Grewal MD [address] [place] [address] Consulting Physician Rheumatology 01/30/21 Amy Mayes NP [address] [address] Nurse Practitioner Cardiovascular Disease 04/20/24 Shailesh Dunn MD 4600 [facility] [address] [address] Consulting Physician Pulmonary Disease 04/20/24 Sangita Farrar PA [address] [place] [address] Physician Gauge And Instrument Inspector Rheumatology 05/15/24 documented as of this encounter
--- OUTSIDE RECORDS SUMMARY | 2024-12-01 12:55 | XMS_ITS | Encounter Summary ---
Author Organization [facility] Facility Care Team Providers Care School Social Worker Name Role Phone Alee Elizondo Primary Care Provider + [phone] Sharan Linton MD Unavailable [phone] Taisha Gomez MD Unavailable [phone] Parag Soto MD Unavailable [phone] RaziaMartha signh MD Unavailable [phone] Puneet Uribe MD Unavailable [phone] Shama Hines MD Unavailable Artis Grewal MD Unavailable [phone] Harrison Pena RN Unavailable [phone] Nafisa Gregg RN Unavailable [phone] Tho Kelsey MD Primary Care Provider [phone] Alee Elizondo Primary Care Provider + [phone] Amy Mayes NP Unavailable [phone] Shailesh Dunn MD Unavailable [phone] Sangita Farrar Unavailable [phone] Encounter Details Date Type Department Care Team (Latest Contact Info) Description 01/08/2017 Orders Only [facility] CLINCONV Provider, MD Tania [address] [place] [address] Social History Tobacco Use Types Packs/Day Years Used Date Smoking Tobacco: Never Alcohol Use Standard Drinks/Week Comments No 0 (1 standard drink = 0.6 oz pur e alcohol) Comments Unknown Sex and Gender Information Value Date Recorded Sex Assigned at Not on file 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 Gender Identity Female 02/15/2020 6:08 PM CDT [...] COVID: Suspected 08/13/2021 08/14/2021 08/14/2021 3:06 AM KISS MIXER COVID: Suspected 08/14/2021 08/14/2021 08/15/2021 3:05 AM KISS MIXER COVID: Suspected 08/14/2021 08/14/2021 08/15/2021 6:25 AM KISS MIXER COVID: Suspected 06/02/2023 06/02/2023 06/02/2023 7:25 PM KISS MIXER COVID: Suspected 07/26/2023 07/26/2023 07/26/2023 3:10 PM KISS MIXER COVID: Suspected 09/25/2024 09/25/2024 09/25/2024 11:03 AM CDT Influenza, adult 09/25/2024 09/25/2024 10/02/2024 3:05 AM CDT COVID: Suspected 10/23/2024 10/23/2024 10/23/2024 1:15 PM CDT documented as of this encounter Care Teams School Social Worker Relationship Specialty Start Date End Date Alee Elizondo PA 1095 [facility] [address] [place] [address] PCP - General Internal Medicine 02/01/17 06/29/23 Tho Kelsey MD [address] [place] [address] [address] [facility] [address] [place] [address] PCP - General Family Medicine 06/30/23 07/04/23 Alee Elizondo PA [address] [facility] [address] [facility] 500 [place] [address] PCP - General Internal Medicine 07/05/23 Sharan Linton MD 1095 [facility] [address] [place] [address] Referring Physician Gastroenterology 10/31/18 Taisha Gomez MD 1095 [facility] [address] [place] [address] Referring Physician Pulmonary Disease 10/31/18 12/23/20 Parag Soto MD 1095 [facility] [address] [place] [address] Referring Physician Rheumatology 10/31/18 12/23/20 Martha Starks MD 10[address] [facility] [address] [place] [address] Consulting Physician Cardiology 12/24/20 Puneet Uribe MD [address] [facility] [address] [place] [address] Consulting Physician Rheumatology 12/24/20 01/29/21 Shama Hines MD 4700 [facility], [facility] [address] [place] [address] Consulting Physician Pain Management 01/19/21 Artis Grewal MD [address] [place] [address] Consulting Physician Rheumatology 01/30/21 Harrison Pena RN [address] [place] [address] Civil Preparedness Training Officer 05/30/23 09/04/23 Nafisa Gregg, JULIUS [address] [place] [address] [address] [place] [address] Civil Preparedness Training Officer 06/06/23 06/12/23 Amy Mayes NP [address] [address] Nurse Practitioner Cardiovascular Disease 04/20/24 Shailesh Dunn MD [address] [address] Consulting Physician Pulmonary Disease 04/20/24 Sangita Farrar PA [address] [place] [address] Physician Rn Medical Inpatient Services Rheumatology 05/15/24 documented as of this encounter
--- OUTSIDE RECORDS SUMMARY | 2024-12-01 12:55 | XMS_ITS | Continuity of Care Document ---
Author Organization [facility] Address [address] [place] [address] [address] [place] [address] Phone Care Team Providers Care Foiling 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 Name Role Phone Torsten Ramesh Unavailable [...] Diagnoses Date Provider Providers Copied on Encounter [facility], [address], [place], [place], [id number], [place] tel:[phone] [place] No Information 0 5 Muehl Torsten. [address] [facility], [address], [place], [address], [place]. tel: [phone] Referring Provider: Alee Elizondo, [address] [place] [address] [address], [place], [address]. tel:[phone] [facility] [address], [place], [place], [id number], [place] tel:[phone] [place] No Information 0 4 Muehl Torsten. [address] [place] [address], [address], [place], [address], [place]. tel: [phone] Referring Provider: Alee Elizondo, [address] [place] [address] [address], [place], [address]. tel:[phone] [place] [address] [facility] [address], [place], [place], [id number], [place] tel:[phone] [place] No Information 0 4 Muehl Torsten. [address] [place] [address], [address], [place], [address], [place]. tel: [phone] Referring Provider: Alee Elizondo, [address] [place] [address] Road [address], [place], [address]. tel:[phone] [facility] [address] [facility] [address] [facility] [address], [place], [place], [id number], [place] tel:[phone] [place] No Information 2 4 Muehl Torsten. [address] [place] [address], [address], [place], [address], [place]. tel: [phone] Referring Provider: Alee Elizondo, [address] [facility] [address], [place], [address]. tel:[phone] [facility] [facility] [address], [place], [id number], [place] tel:[phone] [place] No Information 4 Muehl Torsten. [address] [facility], [facility] [address], [place], [facility], . tel: [phone] Referring Provider: Alee Elizondo, [address] [place] [address] Road [address], [place], [address]. tel:[phone] [facility] [facility] [address], [place], [id number], [place] tel:[phone] [place] No Information Phill Torsten. [address] [place] [address], [address], [place], [facility], [place]. tel: [phone] Referring Provider: Alee Elizondo, [address] [place] [address] Road [address], [place], [address]. tel:[phone] [facility] [facility] [address], [place], [id number], [place] tel:[phone] [place] No Information Phill Torsten. [address] [place] [address], [address], [place], [facility], [place]. tel: [phone] Referring Provider: Alee Elizondo, [address] [place] [address] Road [address], [place], [address]. tel:[phone] [facility] [facility] [address], [place], [id number], [place] tel:[phone] [place] Lumbago 4 Muehl Torsten. [address] [facility], [address], [place], [address], [place]. tel: [phone] Referring Provider: Alee Elizondo, [facility] [facility] [address], [place], [address]. tel:[phone] Family History Family Member Type Diagnosis Age [...]
--- OUTSIDE RECORDS SUMMARY | 2024-12-01 12:55 | XMS_ITS | Clinical Summary ---
Author Organization [facility] [address] Address [address] [place] [address] Care Team Providers Care Salesforce Business Analyst Name Role Phone Sharan Linton MD Unavailable [phone] Martha Starks MD Unavailable [phone] Shama Hines MD Unavailable Artis Grewal MD Unavailable Alee Elizondo Primary Care Provider [phone] Amy Mayes NP Unavailable Shailesh Dunn MD Unavailable [phone] Sangita Farrar Unavailable Allergies Active Allergy Reactions [...] has had evaluation by Urology at [facility] and has been told there [...] prescribed. Assessment & Plan (08/07/2023 7:55 PM BALLING HEAD TENDER): Persistent sinusitis symptoms along with cough. [...] provided. Assessment & Plan (05/07/2024 8:56 PM BALLING HEAD TENDER): Discussed the patient's BMI. The BMI [...] provided. Assessment & Plan (09/06/2023 9:38 AM BALLING HEAD TENDER): Discussed the patient's BMI. The BMI is above average. BMI management plan is completed. BMI Follow-up includes: nutrition counseling, exercise counseling and education provided. Patient has an obesity-related condition (not limited to: hypertension, obstructive sleep apnea, osteoarthritis, hyperlipidemia, diabetes, etc.). Therefore, morbid obesity may be documented for patients with a BMI between 35.00-39.99. Assessment & Plan (08/07/2023 7:51 PM BALLING HEAD TENDER): Discussed the patient's BMI. The BMI is above average. BMI management plan is completed. BMI Follow-up includes: nutrition counseling, exercise counseling and education provided. Patient has an obesity-related condition (not limited to: hypertension, obstructive sleep apnea, osteoarthritis, hyperlipidemia, diabetes, etc.). Therefore, morbid obesity may be documented for patients with a BMI between 35.00-39.99. Assessment & Plan (08/03/2023 7:45 AM BALLING HEAD TENDER): Discussed the patient's BMI. The BMI is above average. BMI management plan is completed. BMI Follow-up includes: nutrition counseling, exercise counseling and education provided. Primary osteoarthritis of right knee 07/08/2023 Assessment & Plan (05/07/2024 8:56 PM BALLING HEAD TENDER): Patient has arthritis in the right knee. Planning a total knee replacement with Dr. Alexus Motta on May 30 Assessment & Plan (08/03/2023 8:28 AM BALLING HEAD TENDER): Continue per ortho. She is seeing some improvement but it is difficult to know if the knee is rheumatoid versus osteo versus other etiology. Will await recommendations from JACQUI Raya but definitely encouraged her to become active as soon as possible. Status post total knee replacement using cement, right 05/19/2023 Assessment & Plan (06/02/2023 4:56 PM BALLING HEAD TENDER): Status post total knee replacement with Dr. Ge Sexton 04 May. She has just been released from rehab following up for her TCM visit. She appears to have an area of cellulitis at the incision site. She is also complaining of increased pain. Will check CBC CMP and inflammatory markers along with an x-ray. She plans to go to [facility] for the workup. Will [...] 12/20/2022 Assessment & Plan (05/07/2024 8:55 PM BALLING HEAD TENDER): Patient is on medication for her rheumatoid arthritis managed by [facility] Assessment & Plan (01/22/2024 8:13 PM CDT): Medications from [facility] contribute to her immunosuppressive state. Assessment & Plan (09/06/2023 9:41 AM BALLING HEAD TENDER): Medications are managed by [facility] for her rheumatoid arthritis Assessment & Plan (04/06/2023 7:44 PM CDT): Managed by [facility]. Currently on Plaquenil methotrexate Orencia folic [...] has had evaluation by Urology at [facility] and has been told there [...] capacity. Assessment & Plan (09/06/2023 9:41 AM BALLING HEAD TENDER): Continue per . She did not [...] Pate. Assessment & Plan (07/18/2022 10:20 AM BALLING HEAD TENDER): CT revealed pelvic lipomatosis that is [...] 02/11/2022 Assessment & Plan (09/06/2023 9:41 AM BALLING HEAD TENDER): No change. Dysfunction of both eustachian tubes 02/11/2022 Myalgia, lower leg 01/11/2022 PLMD (periodic limb movement disorder) Assessment & Plan (11/06/2024 9:20 AM CDT): The patient is unaware that her limbs are moving at night when she sleeps. Assessment & Plan (08/02/2024 11:49 AM BALLING HEAD TENDER): Asymptomatic Assessment & Plan (06/22/2022 10:31 AM BALLING HEAD TENDER): Will continue Requip 1 mg nightly [...] bedtime. Assessment & Plan (07/13/2021 11:25 AM BALLING HEAD TENDER): Due to the patient stating that [...] hydroxychloroquine Assessment & Plan (08/23/2024 10:16 AM BALLING HEAD TENDER): Hepatitis negative 06/2020 Tspot negative 06/2020 Continue routine lab monitoring Maintain routine eye exams throughout the duration of taking hydroxychloroquine Assessment & Plan (07/30/2024 8:24 AM BALLING HEAD TENDER): Hepatitis negative 06/2020 Tspot negative 06/2020 [...] hydroxychloroquine Assessment & Plan (09/01/2023 8:34 AM BALLING HEAD TENDER): Hepatitis negative 06/2020 Tspot negative 06/2020 Continue routine lab monitoring Maintain routine eye exams throughout the duration of taking hydroxychloroquine Assessment & Plan (06/29/2023 2:19 PM BALLING HEAD TENDER): Hepatitis negative 06/2020 Tspot negative 06/2020 [...] hydroxychloroquine Assessment & Plan (07/14/2022 2:58 PM BALLING HEAD TENDER): Hepatitis negative 06/2020 Tspot negative 06/2020 Continue routine lab monitoring Maintain routine eye exams throughout the duration of taking hydroxychloroquine Assessment & Plan (06/03/2022 9:58 AM BALLING HEAD TENDER): Hepatitis negative 06/2020 Tspot negative 06/2020 [...] hydroxychloroquine Assessment & Plan (09/03/2021 8:29 AM BALLING HEAD TENDER): Hepatitis negative 06/2020 Tspot negative 06/2020 Continue routine lab monitoring Maintain routine eye exams throughout the duration of taking hydroxychloroquine Assessment & Plan (06/03/2021 4:17 PM BALLING HEAD TENDER): Hepatitis negative 06/2020 Tspot negative 06/2020 [...] hydroxychloroquine Assessment & Plan (09/02/2020 1:16 PM BALLING HEAD TENDER): Hepatitis negative 06/2020 Tspot negative 06/2020 Continue routine lab monitoring Maintain routine eye exams throughout the duration of taking hydroxychloroquine Assessment & Plan (07/09/2020 12:23 PM BALLING HEAD TENDER): Hepatitis negative 06/2020 Tspot negative 06/2020 [...] 08/13/2019 Assessment & Plan (05/07/2024 8:54 PM BALLING HEAD TENDER): Patient with chronic constipation. Has been [...] linzess Assessment & Plan (08/13/2019 8:57 AM BALLING HEAD TENDER): On Movantik with Dr. Soto Herpes [...] diabetes. Assessment & Plan (05/07/2024 8:55 PM BALLING HEAD TENDER): Pre-diabetes/hyperglycemia is a precursor to Dm. [...] diabetes. Assessment & Plan (09/06/2023 9:40 AM BALLING HEAD TENDER): Pre-diabetes/hyperglycemia is a precursor to Dm. [...] diabetes. Assessment & Plan (09/11/2021 11:22 PM BALLING HEAD TENDER): Pre-diabetes/hyperglycemia is a precursor to Dm. Stressed importance of working on diet (decrease your simple sugars and one carbohydrate with each meal) and increase you exercise to achieve weight loss and this will help prevent you from progressing to diabetes. Assessment & Plan (05/29/2021 8:18 PM BALLING HEAD TENDER): Pre-diabetes/hyperglycemia is a precursor to Dm. [...] diabetes. Assessment & Plan (08/31/2020 9:34 AM BALLING HEAD TENDER): Pre-diabetes is a precursor to Dm. [...] diabetes. Assessment & Plan (08/13/2019 9:00 AM BALLING HEAD TENDER): This is a significant, separately identifiable [...] b.I.d. Assessment & Plan (05/07/2024 8:54 PM BALLING HEAD TENDER): Depression symptoms are stable with Wellbutrin XL 150 Cymbalta 60 b.i.d. Assessment & Plan (04/21/2024 8:50 PM CDT): Depression symptoms are stable with the Wellbutrin XL 150 and Cymbalta 60 b.i.d. Assessment & Plan (01/22/2024 8:11 PM CDT): Depression symptoms are stable with Wellbutrin and Cymbalta Assessment & Plan (09/06/2023 9:40 AM BALLING HEAD TENDER): Depression is stable with Wellbutrin and Cymbalta Assessment & Plan (08/03/2023 8:31 AM BALLING HEAD TENDER): Stable with Cymbalta 60 and Wellbutrin [...] Cymbalta Assessment & Plan (09/11/2021 11:26 PM BALLING HEAD TENDER): Continue Wellbutrin and Cymbalta Assessment & Plan (05/29/2021 8:22 PM BALLING HEAD TENDER): Continue Wellbutrin and Cymbalta Assessment & Plan (05/24/2021 10:39 AM BALLING HEAD TENDER): Continue Wellbutrin and Cymbalta Assessment & Plan (12/24/2020 9:07 AM CDT): Continue wellbutrin and cymbalta Assessment & Plan (08/31/2020 9:35 AM BALLING HEAD TENDER): Continue wellbutrin and cymbalta Assessment & Plan (02/18/2020 9:47 PM CDT): Stable with the Cymbalata Assessment & Plan (08/13/2019 8:59 AM BALLING HEAD TENDER): Stable with Cymbalta and Wellbutrin Assessment [...] regimen. Med list updated to reflect the [id number] one daily and Prozac 40mg. Mixed hyperlipidemia 03/29/2018 Assessment & Plan (10/22/2024 1:06 PM CDT): Encouraged patient to follow low fat/low chol diet like the Mediterranean diet. Increase good fats in the diet. Increase exercise. Monitor labs as needed. Continue Crestor 10 Assessment & Plan (05/07/2024 8:54 PM BALLING HEAD TENDER): Encouraged patient to follow low fat/low [...] statin Assessment & Plan (09/06/2023 9:42 AM BALLING HEAD TENDER): Encouraged patient to follow low fat/low [...] statin Assessment & Plan (09/11/2021 11:26 PM BALLING HEAD TENDER): Encouraged patient to follow low fat/low chol diet like the Mediterranean diet. Increase good fats in the diet. Increase exercise. Monitor labs as needed. Continue statin Assessment & Plan (05/29/2021 8:22 PM BALLING HEAD TENDER): Encouraged patient to follow fat/low chol diet like the Mediterranean diet. Increase good fats in the diet. Increase exercise. Monitor labs as needed. Continue statin Assessment & Plan (05/24/2021 10:39 AM BALLING HEAD TENDER): Encouraged patient to follow fat/low chol [...] statin Assessment & Plan (08/31/2020 9:34 AM BALLING HEAD TENDER): Encouraged patient to follow fat/low chol diet like the Mediterranean diet. Increase good fats in the diet. Increase exercise. Monitor labs as needed. Continue statin Assessment & Plan (02/18/2020 9:46 PM CDT): Encouraged patient to continue low fat/low chol diet. Continue exercise. Increase good fats in the diet. Monitor labs as needed. Assessment & Plan (08/13/2019 8:59 AM BALLING HEAD TENDER): Encouraged patient to continue low fat/low [...] future Assessment & Plan (09/06/2023 9:40 AM BALLING HEAD TENDER): Continue PPI Assessment & Plan (04/06/2023 7:36 PM CDT): Continue PPI p.r.n. Assessment & Plan (01/20/2023 8:13 PM CDT): Continue PPI Assessment & Plan (09/12/2022 6:13 PM CDT): Continue PPI p.r.n. Assessment & Plan (06/03/2022 3:40 PM BALLING HEAD TENDER): Pyrosis poorly controlled on Nexium. Pt [...] PPI Assessment & Plan (09/11/2021 11:26 PM BALLING HEAD TENDER): Continue PPI Assessment & Plan (12/24/2020 9:05 AM CDT): Continue PPI Assessment & Plan (02/18/2020 9:45 PM CDT): Continue PPI. Saw Dr. Linton for increased GERD sxs. If persist, encouraged to followup again with Dr. Linton. Assessment & Plan (08/13/2019 8:58 AM BALLING HEAD TENDER): Stable with PPI Assessment & Plan [...] exertion) Assessment & Plan (06/22/2022 10:30 AM BALLING HEAD TENDER): Patient is not currently using inhalers. [...] water pressure while sleeping. Her DME is [facility]. I have sent an order over to [facility] due to her changing insurances. Assessment & Plan (10/22/2024 1:05 PM CDT): Managed by Dr. Dunn. Continue CPAP Assessment & Plan (08/02/2024 11:49 AM BALLING HEAD TENDER): Due to the patient stating the [...] patient Assessment & Plan (05/07/2024 8:55 PM BALLING HEAD TENDER): Continue with CPAP. Assessment & Plan (04/21/2024 8:49 PM CDT): Continue per Dr. Dunn. Has all her needed supplies for CPAP which she is using every night. Continue with Requip 0.5 mg HS for restless leg Assessment & Plan (01/22/2024 8:08 PM CDT): Continue CPAP per Dr. Dunn Assessment & Plan (09/06/2023 9:40 AM BALLING HEAD TENDER): Continue CPAP Assessment & Plan (06/21/2023 10:14 AM BALLING HEAD TENDER): Patient continue to wear her CPAP [...] CPAP Assessment & Plan (06/22/2022 10:31 AM BALLING HEAD TENDER): Will continue CPAP therapy at an auto titrating range of 7-20 cm water pressure. Denied need for supplies. DME [facility] patient Assessment & Plan (05/02/2022 9:15 [...] pressure. Patient denied need for supplies. DME [facility]. Patient is benefitting CPAP Assessment & Plan (09/11/2021 11:22 PM BALLING HEAD TENDER): Continue CPAP. Patient has all needed supplies. Assessment & Plan (07/13/2021 11:27 AM BALLING HEAD TENDER): Due to the patient stating she does not have enough pressure in her machine, I have increased the pressure to 13 cm water pressure. The patient denied need for for supplies. [facility]. Have also ordered a new smart card set at 13 cm water pressure. Benefitting from CPAP therapy Assessment & Plan (05/29/2021 8:14 PM BALLING HEAD TENDER): Continue CPAP. Assessment & Plan (02/17/2021 [...] CPAP. Would like to see Pulm[facility] at [facility] al[facility]za as difficulty getting in consistently at [facility] and most of her care is now [facility] Assessment & Plan (02/18/2020 9:44 PM CDT): Continue CPAP Assessment & Plan (08/13/2019 8:46 AM BALLING HEAD TENDER): Using the CPAP. Has equipment as [...] planned. Assessment & Plan (08/23/2024 10:16 AM BALLING HEAD TENDER): 02/2021 XR L knee with mild to moderate OA, now s/p B TKA. Following with ortho as planned. Assessment & Plan (07/30/2024 11:23 AM BALLING HEAD TENDER): 02/2021 XR L knee with mild [...] March. Assessment & Plan (09/01/2023 3:42 PM BALLING HEAD TENDER): 02/2021 XR L knee with mild to moderate OA, R knee negative. Had injections with ortho without benefit, now s/p L TKA. Assessment & Plan (06/30/2023 12:46 PM BALLING HEAD TENDER): 02/2021 XR L knee with mild [...] g/d. Assessment & Plan (07/15/2022 1:41 PM BALLING HEAD TENDER): 02/2021 XR L knee with mild to moderate OA, R knee negative. Had injections with ortho with benefit. Unable to afford PT. Can continue Tylenol Arthritis, not to exceed 4 g/d. Assessment & Plan (06/03/2022 9:58 AM BALLING HEAD TENDER): 02/2021 XR L knee with mild [...] evaluation. Assessment & Plan (09/03/2021 11:27 AM BALLING HEAD TENDER): XR L knee with mild to [...] able. Assessment & Plan (06/04/2021 10:27 AM BALLING HEAD TENDER): XR L knee with mild to [...] above. Assessment & Plan (09/03/2020 12:23 PM BALLING HEAD TENDER): 10/27/2017 XR L knee: mild tricompartmental OA. Will continue meloxicam as above. Assessment & Plan (07/09/2020 12:24 PM BALLING HEAD TENDER): 10/27/2017 XR L knee: mild tricompartmental [...] Plan (10/22/2024 1:04 PM CDT): Continue per [facility]. Continue Plaquenil methotrexate Orencia folic acid Mobic gabapentin. Assessment & Plan (08/23/2024 12:54 PM BALLING HEAD TENDER): Moderate cdai with report of increasing [...] needed. Assessment & Plan (07/30/2024 11:22 AM BALLING HEAD TENDER): Moderate cdai with report of increased [...] with labs near her home ([facility] in [place]), but the following month will need to plan for an in person visit. She expressed understanding and agreement with this plan. Continue methotrexate 20 mg weekly, folic acid 2 mg daily, and hydroxychloroquine 200 mg BID. Labs today as below. Assessment & Plan (05/07/2024 8:55 PM BALLING HEAD TENDER): Managed by [facility]. Currently on Plaquenil and methotrexate and Orencia folic acid Mobic and gabapentin. Stressed she needs to be in contact with her medical records specialist on when and which medicines to stop for the surgery. Assessment & Plan (04/21/2024 8:49 PM CDT): Continue per [facility]. They currently manage [...] Plan (01/22/2024 8:17 PM CDT): Continue per [facility] as they manage her condition. Assessment & Plan (11/24/2023 9:58 AM CDT): Low cdai without inflammatory sounding pain. Will continue methotrexate 20 mg weekly, folic acid 2 mg daily, hydroxychloroquine 200 mg BID, and Orencia and monitor. Labs today as below. Follow up in 3 months or sooner as needed. Assessment & Plan (09/06/2023 9:42 AM BALLING HEAD TENDER): Rheumatoid arthritis is managed by [facility]. Currently on Plaquenil methotrexate Orencia and folic acid Assessment & Plan (09/01/2023 3:39 PM BALLING HEAD TENDER): Overall stable without notable synovitis and no inflammatory sounding pain. Will continue methotrexate 20 mg weekly, folic acid 2 mg daily, hydroxychloroquine 200 mg BID, and Orencia and monitor. Labs today as below. Follow up in 3 months or sooner as needed. Assessment & Plan (08/03/2023 8:28 AM BALLING HEAD TENDER): Continue with rheumatology. Assessment & Plan (06/30/2023 12:43 PM BALLING HEAD TENDER): Overall stable without notable synovitis and no inflammatory sounding pain. Will continue methotrexate 20 mg weekly, folic acid 2 mg daily, hydroxychloroquine 200 mg BID, and Orencia and monitor. Labs today as below. Assessment & Plan (06/02/2023 4:49 PM BALLING HEAD TENDER): Continue per Rheumatology Assessment & Plan (04/06/2023 7:35 PM CDT): Continue per Rheumatology. She has been in discussion with them on what medications to stop prior to her knee surgery. She states she was told to take all of her medicines accept the Orencia. Assessment & Plan (01/20/2023 8:12 PM CDT): Continue per Rheumatology [facility] Assessment & Plan (01/13/2023 3:42 [...] Plan (09/12/2022 6:06 PM CDT): Continue with [facility] Assessment & Plan (07/15/2022 1:41 PM BALLING HEAD TENDER): Low cdai. Significantly improved after IM [...] needed. Assessment & Plan (06/03/2022 3:37 PM BALLING HEAD TENDER): High cdai. Previously felt well controlled with current regimen. Due to burden of disease will give patient a triamcinolone injection. Patient made aware of SE of steroids including but not limited to HTN, increased blood glucose, cataracts, glaucoma, AVN, and osteoporosis with intermediate manager use. Should she flare again shortly after [...] (01/23/2022 4:57 PM CDT): Continue management per [facility] Assessment & Plan (12/07/2021 9:02 AM CDT): Low cdai. Denies inflammatory sounding joint pain. Continue methotrexate 25 mg weekly, folic acid to 2 mg daily, Rinvoq 15 mg daily, hydroxychloroquine 200 mg BID, and cyclobenzaprine 5 mg qhs and monitor. Labs today as below. Plan for follow up in 3 months or sooner as needed. Assessment & Plan (09/11/2021 11:14 PM BALLING HEAD TENDER): Continue per [facility] Assessment & Plan (09/03/2021 11:25 AM BALLING HEAD TENDER): cdai = 12. Pt suspects increased [...] needed. Assessment & Plan (06/04/2021 10:25 AM BALLING HEAD TENDER): Low cdai. Denies inflammatory sounding pain at present. Will plan to continue methotrexate 25 mg weekly, folic acid to 2 mg daily, Rinvoq 15 mg daily, hydroxychloroquine 200 mg BID, and cyclobenzaprine 5 mg qhs and monitor. Labs today as below. Plan for follow up in 3 months or sooner as needed. Assessment & Plan (05/31/2021 9:15 PM BALLING HEAD TENDER): Continue per Rheumatology Assessment & Plan (05/29/2021 8:13 PM BALLING HEAD TENDER): Continue per Rheumatology. Currently on Plaquenil methotrexate and folic acid. Assessment & Plan (05/24/2021 10:38 AM BALLING HEAD TENDER): Continue per Rheumatology Assessment & Plan [...] needed. Assessment & Plan (09/03/2020 12:22 PM BALLING HEAD TENDER): Low cdai. Continues to feel improved [...] needed. Assessment & Plan (08/31/2020 9:34 AM BALLING HEAD TENDER): Continue per [email or web address] Rheum Assessment & Plan (07/09/2020 12:22 PM BALLING HEAD TENDER): 64yoF with a h/o seropositive RA [...] time. Assessment & Plan (06/04/2020 11:14 AM BALLING HEAD TENDER): 64yoF with a h/o seropositive RA [...] needed. Assessment & Plan (05/14/2020 9:33 PM BALLING HEAD TENDER): Refer to new [employer] as Dr. Soto has . Assessment & Plan (02/18/2020 9:46 PM CDT): Continue per Rheum Assessment & Plan (08/13/2019 8:59 AM BALLING HEAD TENDER): Continue per Dr. Soto Assessment & [...] and indigestion Reclast 03/28/2019, 07/09/2020, 07/2021 Pause [id number] Restart ZOL 11/25 Assessment & Plan (11/08/2024 [...] recommendations from the bone metabolism group at [facility] Dr. Martinez. Appointment is scheduled in November. Has been on Reclast and Forteo. She also continues with vitamin-D Assessment & Plan (01/22/2024 8:08 PM CDT): Patient with osteoporosis. Has not been responding to Reclast. Forteo was tried by [facility] and she could [...] of her osteoporosis, recommended evaluation by the [facility], unfortunately their first available appt was in November 2024. Recommended today that she check with [facility] Osteoporosis center (at [facility]) to see how far out they are scheduling new patients, though she does not like this option due to distance from her house. Assessment & Plan (09/06/2023 9:40 AM BALLING HEAD TENDER): Managed by [facility]. Per patient they are making a referral to bone metabolism at [facility] she has not seen significant improvement with the Forteo or the Reclast. Assessment & Plan (09/01/2023 3:43 PM BALLING HEAD TENDER): DEXA: Lspine BMD 0.809 Tscore -2.2, [...] of her osteoporosis, recommend evaluation by the [facility], provided contact info for Dr. Casitllo. Pt in agreement with plan. Assessment & Plan (06/30/2023 12:49 PM BALLING HEAD TENDER): DEXA: Lspine BMD 0.809 Tscore -2.2, [...] PM CDT): Continue to monitor. Managed by [facility]. Patient is on Reclast calcium vitamin-D [...] exercise Assessment & Plan (07/15/2022 1:42 PM BALLING HEAD TENDER): 01/27/2021 DEXA: Lspine -1.8, L femoral neck -1.9, L total hip -1.2, R femoral neck -2.3, R total hip -1.0, FRAX major 32% and hip 7%. Received Reclast 07/2021. Continue yearly Reclast, scheduled for 07/22 Assessment & Plan (06/03/2022 3:38 PM BALLING HEAD TENDER): 01/27/2021 DEXA: Lspine -1.8, L femoral [...] Plan (01/23/2022 5:02 PM CDT): Managed by [facility] currently on Reclast calcium and vitamin-D Assessment & Plan (12/07/2021 9:04 AM CDT): 01/27/2021 DEXA: Lspine -1.8, L femoral neck -1.9, L total hip -1.2, R femoral neck -2.3, R total hip -1.0, FRAX major 32% and hip 7%. Received Reclast 07/2021. Continue yearly Reclast. Assessment & Plan (09/03/2021 11:26 AM BALLING HEAD TENDER): 01/27/2021 DEXA: Lspine -1.8, L femoral neck -1.9, L total hip -1.2, R femoral neck -2.3, R total hip -1.0, FRAX major 32% and hip 7%. Received Reclast 07/2021. Continue yearly reclast and daily vitamin D-calcium supplement. Assessment & Plan (06/04/2021 10:27 AM BALLING HEAD TENDER): 01/27/2021 DEXA: Lspine -1.8, L femoral [...] [facility] Assessment & Plan (09/03/2020 12:23 PM BALLING HEAD TENDER): Vitamin D level was 68. Received Reclast 07/09/2020. Last DEXA per available records was 01/31/2019, due this summer. Assessment & Plan (07/09/2020 12:23 PM BALLING HEAD TENDER): Overdue for Reclast, last infusion was 03/28/2019, will receive infusion today. Vitamin D level was 68 Last DEXA per available records was 01/31/2019 Assessment & Plan (06/04/2020 11:15 AM BALLING HEAD TENDER): Overdue for Reclast, last infusion was 03/28/2019, will check benefits. Recheck vitamin D level now. Last DEXA per available records was 01/31/2019 Assessment & Plan (02/18/2020 9:46 PM CDT): Calcium, vit D and exercise. Continue to monitor DXA Assessment & Plan (08/13/2019 8:58 AM BALLING HEAD TENDER): Continue with Calcium, Vit D and Exercise. Recheck DXA iin Fall 2019 with mammogram Resolved Problems Problem Noted Date Diagnosed Date Resolved Date Encounter for pre-operative examination 05/07/2024 10/09/2024 Assessment & Plan (05/07/2024 8:57 PM BALLING HEAD TENDER): I have examined this patient and [...] Krishnamurthy. 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 Daniels Stressed importance of very close follow-up BMI 37.0-37.9, adult 09/06/2023 024 Assessment & Plan (10/13/2023 7:38 AM CDT): Discussed the patient's BMI. The BMI is above average. BMI management plan is completed. BMI Follow-up includes: nutrition counseling, exercise counseling and education provided. Assessment & Plan (09/06/2023 9:42 AM BALLING HEAD TENDER): Discussed the patient's BMI. The BMI is above average. BMI management plan is completed. BMI Follow-up includes: nutrition counseling, exercise counseling and education provided. Hyperglycemia 09/06/2023 09/06/2023 Positive depression screening 09/06/2023 09/06/2023 Annual physical exam 09/06/2023 024 Assessment & Plan (09/06/2023 9:43 AM BALLING HEAD TENDER): Encouraged healthy lifestyle, good nutrition and exercise. Encouraged Calcium and Vitamin D and weight bearing exercise for bone health. Reviewed immunizations Reviewed age appropirate screenings. Orthopedic aftercare 08/09/2023 Right knee pain 08/09/2023 09/06/2023 Sinus congestion 08/07/2023 09/06/2023 Assessment & Plan (08/07/2023 7:54 PM BALLING HEAD TENDER): Persistent sinusitis symptoms along with cough. Will start doxy b.i.d.. Start antihistamine (Claritin OR Zyrtec), Mucinex 12hour and Steroid nasal spray (Flonase). Push fluids. Rest. Supportive care. If sxs worsen or don\'t improve, pt is to followup in the office. BMI 35.0-35.9,adult 08/03/2023 09/06/19 24 Assessment & Plan (08/07/2023 7:51 PM BALLING HEAD TENDER): Discussed the patient's BMI. The BMI is above average. BMI management plan is completed. BMI Follow-up includes: nutrition counseling, exercise counseling and education provided. Assessment & Plan (08/03/2023 8:29 AM BALLING HEAD TENDER): Discussed the patient's BMI. The BMI [...] 01/22/2024 Assessment & Plan (06/02/2023 4:57 PM BALLING HEAD TENDER): Later in the day received critical lab call for a CO2 value at 42. My staff contacted the patient and she was instructed to go to the ER for further evaluation to determine underlying cause. She states throughout the day she has noticed a little bit more shortness of breath. She [facility] Charge nurse was notified of the [...] surgery. Will defer cardiac clearance to her fulfillment associate. Her chronic medical conditions are stable. [facility] as instructed her to hold the [...] provided. Assessment & Plan (06/02/2023 8:27 AM BALLING HEAD TENDER): Discussed the patients BMI: The BMI [...] [place] on May 04 at [facility]. Need for vaccination for Strep pneumoniae [...] symptoms worsen or do not respond to [id number] allergy medicines within the next week she [...] provided. Assessment & Plan (08/23/2022 2:19 PM BALLING HEAD TENDER): Discussed the patient's BMI. The BMI [...] plans Assessment & Plan (07/18/2022 10:20 AM BALLING HEAD TENDER): CT revealed pelvic lipomatosis that is [...] 12/20/2022 Assessment & Plan (07/18/2022 10:21 AM BALLING HEAD TENDER): CT revealed pelvic lipomatosis that is [...] plan, Assessment & Plan (07/08/2022 12:33 PM BALLING HEAD TENDER): Patient has had dysuria. She was [...] STAT abd/pelvis with and without contrast at [facility]. Check labs STAT. Acute right flank pain 07/08/202204/06 Assessment & Plan (07/18/2022 10:21 AM BALLING HEAD TENDER): CT revealed pelvic lipomatosis that is [...] plan, Assessment & Plan (07/08/2022 5:58 PM BALLING HEAD TENDER): Images from the original note were [...] STAT abd/pelvis with and without contrast at [facility]. Check labs STAT. STAT CT Abd/pelvis without [...] 09/06/2023 Assessment & Plan (07/08/2022 12:33 PM BALLING HEAD TENDER): Patient has had dysuria. She was [...] STAT abd/pelvis with and without contrast at [facility]. Check labs STAT. Assessment & Plan (07/06/2022 8:50 AM BALLING HEAD TENDER): Pt presents with dysuria. Urine dip [...] 35.00-39.99. Assessment & Plan (07/18/2022 10:23 AM BALLING HEAD TENDER): Discussed the patient's BMI. The BMI is above average. BMI management plan is completed. BMI Follow-up includes: nutrition counseling, exercise counseling and education provided. Assessment & Plan (07/08/2022 12:30 PM BALLING HEAD TENDER): Discussed the patient's BMI. The BMI [...] She has received multiple injections from her medical records specialist regarding her knee but yesterday when she [...] 01/23/2022 Assessment & Plan (09/11/2021 11:28 PM BALLING HEAD TENDER): Patient has never had a full skin exam. She has quite a few lesions scattered and would benefit from a full exam. Will make referral Annual physical exam 09/11/2021 Assessment & Plan (09/11/2021 11:28 PM BALLING HEAD TENDER): Encouraged healthy lifestyle, good nutrition and exercise. Encouraged Calcium and Vitamin D and weight bearing exercise for bone health. Reviewed immunizations Reviewed age appropirate screenings. Cough 08/13/2021 01/23/2022 Assessment & Plan (08/13/2021 3:43 PM BALLING HEAD TENDER): Patient to presume positive COVID/FLU until results are available and plan to self isolate for up to 10 days from the onset of sxs. Check COVID/FLU test thru [facility] collection site in [place]. Let pt know the newest CDC recommendations [...] future. Assessment & Plan (07/13/2021 11:28 AM BALLING HEAD TENDER): I have ordered the patient Claritin [...] provided. Assessment & Plan (09/11/2021 11:27 PM BALLING HEAD TENDER): Obesity is unchanged. Discussed the patient's BMI. The BMI is above average. BMI management plan is completed. BMI Follow-up includes: nutrition counseling, exercise counseling and education provided. Assessment & Plan (05/29/2021 8:24 PM BALLING HEAD TENDER): Obesity is unchanged. Discussed the patient's BMI. The BMI is above average. BMI management plan is completed. BMI Follow-up includes: nutrition counseling, exercise counseling and education provided. Assessment & Plan (05/12/2021 1:26 PM BALLING HEAD TENDER): Obesity is unchanged. Discussed the patient's BMI. The BMI is above average. BMI management plan is completed. BMI Follow-up includes: nutrition counseling, exercise counseling and education provided. BMI 37.0-37.9, adult 05/12/2021 022 Assessment & Plan (09/11/2021 11:27 PM BALLING HEAD TENDER): Obesity is unchanged. Discussed the patient's BMI. The BMI is above average. BMI management plan is completed. BMI Follow-up includes: nutrition counseling, exercise counseling and education provided. Assessment & Plan (05/29/2021 8:24 PM BALLING HEAD TENDER): Obesity is unchanged. Discussed the patient's BMI. The BMI is above average. BMI management plan is completed. BMI Follow-up includes: nutrition counseling, exercise counseling and education provided. Assessment & Plan (05/12/2021 1:26 PM BALLING HEAD TENDER): Obesity is unchanged. Discussed the patient's BMI. The BMI is above average. BMI management plan is completed. BMI Follow-up includes: nutrition counseling, exercise counseling and education provided. Tinea corporis 04/14/2021 01/23/2022 Assessment & Plan (05/31/2021 9:15 PM BALLING HEAD TENDER): Improving with Lotrisone. Keep the area clean and dry Assessment & Plan (05/29/2021 8:24 PM BALLING HEAD TENDER): Lotrisone to pharmacy. Encouraged her to keep the area clean and dry use her dryer to dry the skin before applying the cream. She is to call if symptoms worsen or do not resolve. Need for immunization against influenza 04/14/2021 05/31/2021 Assessment & Plan (05/29/2021 8:24 PM BALLING HEAD TENDER): Fluid updated in the office Medicare annual wellness visit, subsequent 04/13/2021 05/31/2021 Assessment & Plan (05/29/2021 8:23 PM BALLING HEAD TENDER): Encouraged healthy lifestyle, good nutrition and [...] 12/30/2020 Assessment & Plan (08/31/2020 9:31 AM BALLING HEAD TENDER): Error. This should be right calf but PT order sent and corrected so unable to remove. Fatigue 08/31/2020 09/06/2023 Assessment & Plan (04/06/2023 7:43 PM CDT): Probably multifactorial. Check labs and followup to re-evaluate Assessment & Plan (05/02/2022 9:16 PM CDT): Probably multifactorial. Check labs and followup to re-evaluate Assessment & Plan (08/31/2020 9:34 AM BALLING HEAD TENDER): Probably multifactorial. Check labs and followup to re-evaluate Pain in both lower extremities 08/31/2020 09/06/2023 Assessment & Plan (09/01/2023 3:41 PM BALLING HEAD TENDER): Cramping lower leg pain has resolved [...] 021 Assessment & Plan (08/31/2020 9:33 AM BALLING HEAD TENDER): Obesity is unchanged. Discussed the patient's BMI. The BMI is above average. BMI management plan is completed. BMI Follow-up includes: nutrition counseling, exercise counseling and education provided. Pain of right calf 08/26/2020 Assessment & Plan (08/31/2020 9:31 AM BALLING HEAD TENDER): This is a significant, separately identifiable problem that was evaluated and managed on the same day as the wellness exam Unable to rule out DVT with her calf pain/sxs. Check STAT Venous doppler. Recvd Results and discussed with patient via phone. Negative for DVT. Recommend PT. Prefers [facility] Annual physical exam 08/24/2020 021 Assessment & Plan (08/31/2020 9:34 AM BALLING HEAD TENDER): Encouraged healthy lifestyle, good nutrition and exercise. Encouraged Calcium and Vitamin D and weight bearing exercise for bone health. Reviewed immunizations Reviewed age appropirate screenings. Dizziness 05/07/2020 09/06/2023 Assessment & Plan (05/14/2020 9:35 PM BALLING HEAD TENDER): Suspect the dizziness is inner ear [...] imaging. Assessment & Plan (05/07/2020 1:49 PM BALLING HEAD TENDER): Declines to report to er now [...] 05/14/2020 Assessment & Plan (05/07/2020 1:49 PM BALLING HEAD TENDER): Declines to report to er now [...] 12/30/2020 Assessment & Plan (05/07/2020 1:49 PM BALLING HEAD TENDER): Declines to report to er now [...] provided Assessment & Plan (05/31/2021 9:15 PM BALLING HEAD TENDER): Mammogram order provided Assessment & Plan (02/18/2020 9:47 PM CDT): Mammogram order provided today Medicare annual wellness visit, subsequent 02/15/2020 02/15/2020 Precordial pain 09/04/2019 09/06/2023 Assessment & Plan (08/07/2023 7:50 PM BALLING HEAD TENDER): Workup in the hospital. Cardiology states [...] inhaler. Assessment & Plan (07/13/2021 11:26 AM BALLING HEAD TENDER): The patient will continue with Dulera [...] 020 Assessment & Plan (08/13/2019 8:59 AM BALLING HEAD TENDER): Encouraged healthy lifestyle, good nutrition and exercise. Encouraged Calcium and Vitamin D and weight bearing exercise for bone health. Reviewed immunizations Reviewed age appropirate screenings. Obesity, morbid, BMI 40.0-49.9 08/13/2019 09/23/2020 Assessment & Plan (08/26/2020 7:10 AM BALLING HEAD TENDER): Obesity is unchanged. Discussed the patient's BMI. The BMI is above average. BMI management plan is completed. BMI Follow-up includes: nutrition counseling, exercise counseling and education provided. Assessment & Plan (05/14/2020 9:33 PM BALLING HEAD TENDER): Obesity is unchanged. Discussed the patient's [...] provided. Assessment & Plan (08/13/2019 8:58 AM BALLING HEAD TENDER): Obesity is unchanged. Discussed the patient's [...] change Assessment & Plan (08/13/2019 9:01 AM BALLING HEAD TENDER): This is a significant, separately identifiable [...] 01/22/2024 Assessment & Plan (09/06/2023 9:42 AM BALLING HEAD TENDER): Probably multifactorial. Check labs and followup to re-evaluate Assessment & Plan (09/03/2021 11:28 AM BALLING HEAD TENDER): She notes increased fatigue and lack [...] re-evaluate Assessment & Plan (08/13/2019 9:08 AM BALLING HEAD TENDER): Probably multifactorial. Check labs and followup to re-evaluate Check labs prior to next visit BMI 40.0-44.9, adult 08/02/2019 020 Assessment & Plan (08/13/2019 8:57 AM BALLING HEAD TENDER): Obesity is unchanged. Discussed the patient's BMI. The BMI is above average. BMI management plan is completed. BMI Follow-up includes: nutrition counseling, exercise counseling and education provided. Assessment & Plan (08/02/2019 7:21 AM BALLING HEAD TENDER): Obesity is unchanged. Discussed the patient's BMI. The BMI is above average. BMI management plan is completed. BMI Follow-up includes: nutrition counseling, exercise counseling and education provided. Morbid obesity 08/02/2019 08/13/2019 Assessment & Plan (08/02/2019 7:20 AM BALLING HEAD TENDER): Obesity is unchanged. Discussed the patient's BMI. The BMI is above average. BMI management plan is completed. BMI Follow-up includes: nutrition counseling, exercise counseling and education provided. Acute non-recurrent maxillary sinusitis 08/02/2019 08/13/2019 Assessment & Plan (08/02/2019 7:47 AM BALLING HEAD TENDER): Start antibiotic, antihistamine, Mucinex and Steroid [...] is being sent directly to [facility] and they were working her in [...] 21 Assessment & Plan (05/14/2020 9:33 PM BALLING HEAD TENDER): Completed Doxy and steroid. No s/s [...] p.r.n. Assessment & Plan (08/13/2019 8:59 AM BALLING HEAD TENDER): Continue with NSAIDs prn Atheroscler of [place] artery of both legs with intermit claudication 10/31/2018 12/20/2022 Assessment & Plan (09/11/2021 11:23 PM BALLING HEAD TENDER): Continue per vascular. She is on aspirin and statin Assessment & Plan (12/24/2020 9:03 AM CDT): Sxs stable. On ASA, statin and encouraged daily exercise. Assessment & Plan (02/18/2020 9:43 PM CDT): Continue per cardio. On ASA and statin Assessment & Plan (08/13/2019 8:45 AM BALLING HEAD TENDER): Continues with Dr. Alonso salmeron Assessment & Plan (11/01/2018 11:00 PM CDT): Pt sxs well controlled. On ASA Coronary artery disease of n ative artery of [place] heart with stable angina pectoris 10/31/2018 12/30/2020 Assessment & Plan (08/13/2019 8:36 AM BALLING HEAD TENDER): On ASA and Nitrate. Continue per cardio Depression 07/16/2018 09/11/2021 Frontal sinusitis 06/26/2018 12/24/2020 Leukopenia 03/29/2018 12/30/2020 Other chronic pain 08/05/2017 Chronic seasonal allergic rh initis due to pollen 04/25/2017 12/30/2020 Assessment & Plan (12/24/2020 9:03 AM CDT): Continue current regimen with singulair and otc Assessment & Plan (02/18/2020 9:44 PM CDT): Continue with otc regimen Assessment & Plan (08/13/2019 8:46 AM BALLING HEAD TENDER): Continue current regimen Assessment & Plan [...] potassium Assessment & Plan (09/11/2021 11:26 PM BALLING HEAD TENDER): Bp is stable/in acceptable range for any co-morbidities. Encouraged to limit sodium intake and exercise for weight control. Currently stable without medication Assessment & Plan (05/29/2021 8:19 PM BALLING HEAD TENDER): Bp is stable/in acceptable range for any co-morbidities. Encouraged to limit sodium intake and exercise for weight control. Continue Lasix is helping with the swelling and addition. Blood pressure stable Assessment & Plan (05/24/2021 10:38 AM BALLING HEAD TENDER): Continue Lasix potassium Assessment & Plan (12/24/2020 9:05 AM CDT): Bp is stable/in acceptable range for any co-morbidities. Encouraged to limit sodium intake and exercise for weight control. Assessment & Plan (08/31/2020 9:32 AM BALLING HEAD TENDER): Bp is stable/in acceptable range for any co-morbidities. Encouraged to limit sodium intake and exercise for weight control. Stable with laxis currently Assessment & Plan (02/18/2020 9:44 PM CDT): Bp is stable/in acceptable range for any co-morbidities. Encouraged to limit sodium intake and exercise for weight control. Assessment & Plan (08/13/2019 8:57 AM BALLING HEAD TENDER): Bp is stable/in acceptable range for [...] difficulty pulling them. Recommend finding some on [employer]ectar that fit her calf that she can zip on and off. Showed them to her on [employer] and where to order them. She states she will try to get them. Assessment & Plan (05/31/2021 9:16 PM BALLING HEAD TENDER): Improving slowly. May have been due to the Relafen. She is on 60 of Lasix with potassium 10 mEq daily. Continue with current plan. Keep legs elevated. Utilize compressi to improve cleared. on hose. Call if symptoms worsen or do not continue to improve. Assessment & Plan (05/29/2021 8:23 PM BALLING HEAD TENDER): Persistent lower extremity edema that has [...] CMP. Assessment & Plan (05/24/2021 10:39 AM BALLING HEAD TENDER): Patient that her swelling was improving since discharge for over the last day or so it seems to be increasing. Will increase the Lasix to 40mg Start K 10meq daily Recheck labs in 5 days Assessment & Plan (08/31/2020 9:33 AM BALLING HEAD TENDER): Continue lasix Palpitations 12/08/2015 12/30/2020 Overview (10/09/2016): Palpitations Other abnormal glucose 11/11/201508/31 Asthma 10/14/2015 12/24/2020 Assessment & Plan (08/13/2019 8:49 AM BALLING HEAD TENDER): Continue with current regimen and with Pulmonary Assessment & Plan (11/01/2018 10:53 PM CDT): Currently Stable with regimen. Monitor closely with current allergy season. Followup Dr. Gomez as directed. Menopause 10/14/2015 12/30/2020 Cervical pain (neck) 10/14/2015 023 Encounters Date Type Department Care Team Description 11/22/2024 7:30 AM CDT Office Visit [facility] Medicine [facility] [facility] [address] [place] [address] Alee Elizondo PA Urinary retention (Primary Dx); Pelvic lipomatosis; Elevated parathyroid hormone; Anemia, unspecified type; BMI 35.0-35.9,adult; Morbid obesity (HCC) 11/22/2024 Orders Only [facility] [address] [place] [phone] Sangita Farrar PA 11/21/2024 1:15 PM CDT Lab [facility] [address] [place] [phone] 11/21/2024 11:15 AM CDT Office Visit [facility] [address] [place] [phone] Sangita Farrar PA 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) (Primary Dx); Primary osteoarthritis involving multiple joints; Encounter for medication monitoring 11/21/2024 Results Follow-Up [facility] [address] [place] [phone] Sangita Farrar PA CBC with auto differential, Differential, auto 11/15/2024 Orders Only [facility] [address] [facility] 5th [place] [address] [place] [address] Abisai Martinez MD Age-related osteoporosis without current pathological fracture (Primary Dx) 11/12/2024 8:25 AM CDT Lab [facility] [address] [place] [phone] Pre-diabetes 11/12/2024 8:10 AM CDT Lab [facility] [address] [place] [address] Age-related osteoporosis without current pathological fracture 11/12/2024 Results Follow-Up [facility] Medicine [address] [facility] [address] [place] [phone] Alee Elizondo PA Hemoglobin A1c 11/12/2024 Results Follow-Up [facility] [address] [place] [address] Road [address] [place] [address] Alee Elizondo PA Comprehensive metabolic panel, eGFR, Protein electrophoresis with reflex, serum with interpretation, Additional followed-up results: 3 11/08/2024 2:35 PM CDT Lab [facility] ([facility]) [address] [place] [phone] Age-related osteoporosis without current pathological fracture 11/08/2024 12:33 PM CDT - 11/08/2024 11:59 PM CDT Hospital Encounter [facility] ([facility]) [address] [place] [phone] Abisai Martinez MD Age-related osteoporosis without current pathological fracture Discharge Disposition: Discharge to home or self care 11/08/2024 11:40 AM CDT Office Visit [address] [place] [address] Abisai Martinez MD Age-related osteoporosis without current pathological fracture (Primary Dx) 11/08/2024 11:10 AM CDT Clinical Support [address] [place] [address] Age-related osteoporosis without current pathological fracture (Primary Dx) 11/08/2024 Results Follow-Up [address] [place] [address] Abdomen Pelvis WO Contrast 11/08/2024 Orders Only [address] [place] [address] Anh Segal NP Age-related osteoporosis without current pathological fracture (Primary Dx) 11/08/2024 Orders Only [address] [place] [address] ProviderTania MD 11/08/2024 Imaging Exam [address] [place] [address] Alee Elizondo PA 11/08/2024 Telephone [facility] [address] [facility] 5[address] [place] [address] Abisai Martinez MD Treatment Plan Update (New reclast) 11/08/[address] [place] [address] Alee Elizondo PA 11/07/2024 Telephone [facility] [address] [facility] 5[address] [place] [address] Abisai Martinez MD 11/06/2024 9:15 AM CDT Office Visit [address] [place] [phone] Ciara Monge NP OWEN on CPAP (Primary Dx); PLMD (periodic limb movement disorder) 11/06/[address] [phone] Shailesh Dunn MD 10/23/2024 1:00 PM CDT Office Visit [address] [place] [phone] Alee Elizondo PA Acute non-recurrent sinusitis, unspecified location (Primary Dx); Acute cough; BMI 34.0-34.9,adult; Morbid obesity (HCC) 10/19/2024 Orders Only [address] [place] [phone] ProviderTania MD 10/13/2024 Orders Only [facility] Health Information Management [address] [place] [phone] Alec Coles 10/12/2024 Results Follow-Up [address] [place] [phone] Alee Elizondo PA SCAN - LABS 10/10/2024 7:30 AM CDT Office Visit [address] [place] [phone] Alee Elizondo PA Annual physical exam (Primary Dx); 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); Age-related osteoporosis without current pathological fracture; OWEN on CPAP; Moderate episode of recurrent major depressive disorder (HCC); Mixed hyperlipidemia; Pre-diabetes; Gastroesophageal reflux disease without esophagitis; Pelvic lipomatosis; BMI 35.0-35.9,adult; Morbid obesity (HCC) 10/10/[address] [place] [phone] Alee Elizondo PA Medication Request 10/07/2024 Orders Only [facility] Health Information Management [address] [place] [phone] Alee Elizondo PA 10/04/2024 Results Follow-Up [address] [place] [phone] Alee Elizondo PA Screening Mammogram Bilateral [place] 10/04/2024 Orders Only [address] [place] [phone] ProviderTania MD 10/03/[address] [place] [phone] Alee Elizondo PA 09/26/2024 Orders Only [address] [place] [phone] Alee Elizondo PA Breast cancer screening by mammogram (Primary Dx) 09/25/2024 11:00 AM CDT Office Visit [facility] at [address] [phone] Jessica Collins NP Influenza A (Primary Dx); Acute cough 09/25/2024 Results Follow-Up [facility] Medicine [address] [place] [address] Alee Elizondo PA Screening Mammogram Bilateral [place] 09/20/2024 8:00 AM CDT Office Visit [facility] [address] [facility] [address] [place] [address] Devika Marin MD Venous insufficiency (chronic) (peripheral) (Primary Dx); Mixed hyperlipidemia 09/20/2024 Telephone [facility] Medicine [facility] [address] [place] [phone] Michael Motta MD med clarification 09/14/[address] [phone] Codi Branham 09/13/2024 2:45 PM CDT Office Visit [facility] [address] [place] [phone] Michael Motta MD Chronic pain of right knee (Primary Dx); History of total knee arthroplasty, right 09/13/2024 1:44 PM CDT - 09/13/2024 11:59 PM CDT Hospital Encounter [facility] Diag Imaging [facility] [place] [address] Chronic pain of right knee Discharge Disposition: Discharge to home or self care 09/04/2024 Results Follow-Up [facility] [address] [place] [address] Alee Elizondo PA SCAN - LABS 08/31/[address] [place] [address] Alee Elizondo PA Medical Question/Miscellaneous 08/31/2024 Orders Only [place] [address] [facility] [address] [place] [address] Provider, MD Tania from Last 3 Months Immunizations Immunization Administration Dates Next Due COVID-19 mRNA (Talentoday) 0.3 m L (30 mcg) vaccine (12 [...] drink = 0.6 oz pur e alcohol) [employer] Utilities Answer Date Recorded In the past 12 months has [employer], gas, oil, or water [employer] threatened to shut off services in your [...] on file Legal Sex Female 8:04 PM BALLING HEAD TENDER Gender Identity Female 02/15/2020 6:08 PM [...] history exists Medical Devices Implanted Type Area Cardiac Cath Rn Device Identifier Shelf Expiration Date Model / Serial / Lot [employer] Simplex P Radiopaque Full Dose Cement Bone Sterile 6191-1-010 - [id number] Implanted:Qty: 2 on 05/04/2023 by Michael Motta MD at [facility] Bone Cement Left: Knee [employer] 05/03/2025 6191-1-010 / 6191-1-001 / [id number] [employer] Simplex P Radiopaque Full Dose Cement Bone Sterile 6191-1-010 - [id number] Implanted:Qty: 2 on 05/30/2024 by Michael Motta MD at [facility] Bone Cement Right: Patella [employer] [id number] 05/03/2026 6191-1-010 / / [id number] [employer] Persona 14mm 30+ Mm Knee Tibia Taper Extension Stem [id number] - C61-4759-675-8 4 - [id number] Implanted:Qty: 1 on 05/04/2023 by Michael Motta MD at [facility] Left: Knee [employer] [id number] 02/15/2033 [id number] / 62-3818-154- 14 / [id number] [employer] Persona Cemented Cruciate Retaining Knee Left 7 Narrow Component [id number] - T12-0946-815-4 1 - [id number] Implanted:Qty: 1 on 05/04/2023 by Michael Motta MD at [facility] Left: Knee [employer] [id number] 10/25/2032 [id number] / 54-1772-754- 01 / [id number] [employer] Baseplate Tibial Knee Cemented Left Fixed Stemmed Persona Size D Tivanium [id number] - X36-2116-326-6 1 - [id number] Implanted:Qty: 1 on 05/04/2023 by Michael Motta MD at [facility] Left: Knee [employer] [id number] 09/11/2032 [id number] / 72-2188-499- 01 / [id number] [employer] Persona 11mm Knee Left 6-7 C-D Insert Articular Vivacit-E Sterile [id number] - S66-0733-313-3 1 - [id number] Implanted:Qty: 1 on 05/04/2023 by Michael Motta MD at [facility] Left: Knee [employer] [id number] 12/28/2025 [id number] / 62-8936-117- 11 / [id number] [employer] Persona 32mm Knee Component Patellar All Poly Latex Free 06-8120-134-32 - [id number] Implanted:Qty: 1 on 05/04/2023 by Michael Motta MD at [facility] [employer] 12/19/2027 [id number] / / [id number] [employer] Baseplate Tibial Knee Cemented Right Fixed Stemmed Persona Size C Tivanium [id number] - [id number] Implanted:Qty: 1 on 05/30/2024 by Michael Motta MD at [facility] Right: Knee [employer] [id number] 03/22/2033 [id number] / / [id number] [employer] Persona 29mm Knee Component Patellar All Poly Latex Free [id number] - [id number] Implanted:Qty: 1 on 05/30/2024 by Michael Motta MD at [facility] Right: Knee [employer] [id number] 12/18/2028 [id number] / / [id number] [employer] Persona 13mm Cruciate Retain Knee Right 6-7 Cd Insert Articular Latex Free [id number] - [id number] Implanted:Qty: 1 on 05/30/2024 by Michael Motta MD at [facility] Right: Patella [employer] [id number] 05/04/2025 [id number] / / [id number] [employer] Persona Cruciate Retaining Cemented Knee Right 7 Narrow Component [id number] - [id number] Implanted:Qty: 1 on 05/30/2024 by Michael Motta MD at [facility] Right: Knee [employer] [id number] 12/27/2033 [id number] / / [id number] [employer] Persona 14mm 30+ Mm Knee Tibia Taper Extension Stem [id number] - [id number] Implanted:Qty: 1 on 05/30/2024 by Michael Motta MD at [facility] Right: Knee [employer] [id number] 04/11/2034 [id number] / / [id number] Procedures Procedure Name Priority Date/Time Associated Diagnosis [...] HEPATITIS C ANTIBODY Routine 06/04/2020 10:29 AM BALLING HEAD TENDER Encounter for screening for other viral [...] URINE ORDERABLES Final Result Performing Organization Address [facility] de Phone Number QUEST [facility] [address] [place] [address] * SCAN - LABS (11/22/2024 3:36 PM CDT) Sangita OSMAN Final Res ult * Iron profile w/ IBC (11/22/2024 9:03 AM CDT) Pathologist [facility] Iron 112 45 - 160 mcg/dL [facility] TIBC 303 250 - 450 mcg/dL (calc) [facility] Iron saturation 37 16 - 45 % (calc) [facility] Blood 11/22/2024 9:03 AM CDT 11/22/2024 9:03 AM CDT Alee OSMAN LAB BLOOD ORDERABLES Final Result Performing Organization Address [facility] de Phone Number QUEST [facility] [address] [place] [address] * (ABNORMAL) CBC with auto differential (11/22/2024 [...] LAB BLOOD ORDERABLES Final Result [facility] [address] [place] [address] * Ferritin (11/22/2024 9:03 AM CDT) Ferritin 182 16 - 288 ng/mL [facility] Blood 11/22/2024 9:03 AM CDT 11/22/2024 9:03 AM CDT Alee OSMAN LAB BLOOD ORDERABLES Final Result Performing Organization Address [facility] de Phone Number QUEST [facility] [address] [place] [address] * Vitamin B12 (11/22/2024 9:03 AM CDT) [facility] Vitamin B12 755 200 - 1,100 pg/mL [facility] 11/22/2024 9:03 AM CDT 11/22/2024 9:03 AM CDT Alee OSMAN LAB BLOOD ORDERABLES Final Result Performing Organization Address [facility] Phone Number [facility] [address] [place] [address] * CBC with auto differential (11/21/2024 4:04 PM CDT) Blood Sangita OSMAN LAB BLOOD ORDERABLES Edit ed Result - Final Performing Organization Address [facility] Phone Number QUEST * Differential, auto (11/21/2024 1:29 PM CDT) [facility] Neutrophil abs 2.74 1.50 - 6.50 K/cumm Imm gran abs 0.02 0.00 - 0.10 K/cumm [facility] Lymphocyte abs 0.99 0.80 - 3.30 K/cumm [facility] Monocyte abs 0.43 0.20 - 0.80 K/cumm [facility] Eosinophil abs 0.12 0.00 - 0.50 K/cumm [facility] Basophil abs 0.04 0.00 - 0.10 K/cumm [facility] Neutrophil pct 63.1 % [facility] Comment: Interpretive Data Percent cell count reference ranges are not reported, since discordance with absolute values may lead to misinterpretation of CBC data. Current Interpretive Data was last revised on 2017. Imm gran pct 0.5 % [facility] Comment: Interpretive Data Percent cell count reference ranges are not reported, since discordance with absolute values may lead to misinterpretation of CBC data. Current Interpretive Data was last revised on 2017. Lymphocyte pct 22.8 % [facility] Comment: Interpretive Data Percent cell count reference ranges are not reported, since discordance with absolute values may lead to misinterpretation of CBC data. Current Interpretive Data was last revised on 2017. Monocyte pct 9.9 % [facility] Comment: Interpretive Data Percent cell count reference ranges are not reported, since discordance with absolute values may lead to misinterpretation of CBC data. Current Interpretive Data was last revised on 2017. Eosinophil pct 2.8 % [facility] Comment: Interpretive Data Percent cell count reference ranges are not reported, since discordance with absolute values may lead to misinterpretation of CBC data. Current Interpretive Data was last revised on 2017. Basophil pct 0.9 % [facility] Comment: Interpretive Data Percent cell count reference ranges are not reported, since discordance with absolute values may lead to misinterpretation of CBC data. Current Interpretive Data was last revised on 2017. Blood 11/21/2024 1:29 PM CDT 11/21/2024 3:07 PM CDT us Sangita OSMAN LAB BLOOD ORDERABLES Vy suazo Result [facility] [address] [facility] Department [place] [address] * (ABNORMAL) CBC with auto differential (11/21/2024 1:29 PM CDT) WBC 4.34 3.80 - 9.90 K/cumm Hgb 11.1(L) 11.9 - 15.5 g/dL [facility] Hct 34.5(L) 35.6 - 45.5 % [facility] Plt 218 150 - 400 K/cumm [facility] MPV 10.7 9.1 - 12.3 fL [facility] RBC 3.37(L) 3.90 - 5.20 M/cumm [facility] MCV 102.4(H) 81.3 - 96.4 fL [facility] MCH 32.9 27.1 - 33.3 pg [facility] MCHC 32.2(L) 32.3 - 35.7 g/dL [facility] RDW CV 16.2(H) 11.1 - 14.9 % [facility] RDW SD 58.6(H) 35.7 - 48.1 fL [facility] NRBC abs 0.00 0.00 - 0.01 K/cumm [facility] Blood 11/21/2024 1:29 PM CDT 11/21/2024 3:07 PM CDT Sangita OSMAN LAB BLOOD ORDERABLES Vy suazo Result [facility] [address] [facility] Department [place] [address] * (ABNORMAL) eGFR (11/12/2024 8:36 AM CDT) [...] LAB BLOOD ORDERABLES Final Res ult [facility] [address] [place] [address] * Vitamin D 25 hydroxy (11/12/2024 8:36 AM CDT) [facility] Vitamin D 25-OH 47.0 30.0 - 80.0 ng/mL Blood 11/12/2024 8:36 AM CDT 11/12/2024 9:04 AM CDT Abisai Martinez MD LAB BLOOD ORDERABLES Final Res ult Performing Organization Address [facility] Co de Phone Number CELIO[address] [place] [address] * Protein electrophoresis with reflex, serum with interpretation (11/12/2024 8:36 AM CDT) [facility] Protein, sr 6.4 6.2 - 8.2 g/dL Comment:Testing performed by : [facility], [address] [place] [address]., [address] Albumin 3.6 3.2 - 5.0 g/dL [facility] Comment:Testing performed by : [facility], [address] [place] [address], [place] [address] Alpha-1 globulin 0.4 0.2 - 0.4 g/dL [facility] Comment:Testing performed by : [facility], [address] [place] [address], [place] [address] Alpha-2 globulin 0.7 0.5 - 1.0 g/dL [facility] Comment:Testing performed by : [facility], [address] [place] [address]., [address] Beta-1 globulin 0.4 0.3 - 0.6 g/dL [facility] Comment:Testing performed by : [facility], [address] [place] [address]., [address] Beta-2 globulin 0.4 0.2 - 0.6 g/dL [facility] Comment:Testing performed by : [facility], [address] [place]., [address] Gamma globulin 0.9 0.5 - 1.7 g/dL [facility] Comment:Testing performed by : [facility], [address] [place]., [address] SPEP interp Please see comment [facility] Comment: No apparent monoclonal peak Reviewed and signed by Raad Farrar MD, PhD 11/13/2024 Testing performed by: [facility], [address] [place]., [address] Blood 11/12/2024 8:36 AM CDT 11/12/2024 11:11 AM CDT Abisai Martinez MD LAB BLOOD ORDERABLES Final Res ult Performing Organization Address [facility]/ZIP Co de Phone Number [address] [place] [address] * Phosphorus (11/12/2024 8:36 AM CDT) Pathologist [facility] Phosphorus, pl 3.1 2.3 - 4.5 mg/dL Blood 11/12/2024 8:36 AM CDT 11/12/2024 9:04 AM CDT Abisai Martinez MD LAB BLOOD ORDERABLES Final Res ult Performing Organization Address City/[facility] Co de Phone Number [address] [place] [address] * (ABNORMAL) PTH (11/12/2024 8:36 AM CDT) Pathologist [facility] PTH 132(H) 15 - 65 pg/mL Blood 11/12/2024 8:36 AM CDT 11/12/2024 9:04 AM CDT Abisai Martinez MD LAB BLOOD ORDERABLES Final Res ult Performing Organization Address [facility]/ZIP Co de Phone Number [facility] [address] [facility] Department [place] [address] * (ABNORMAL) Comprehensive metabolic panel (11/12/2024 8:36 AM CDT) Sodium 139 135 - 145 mmol/L Potassium, pl 4.0 3.3 - 4.9 mmol/L [facility] Chloride 108 97 - 110 mmol/L [facility] CO2 21(L) 22 - 32 mmol/L [facility] Anion gap 10 2 - 15 mmol/L [facility] BUN 22 6 - 25 mg/dL [facility] Creatinine 1.05 0.60 - 1.10 mg/dL [facility] Glucose 101 70 - 199 mg/dL [facility] Comment: Interpretive Data Fasting glucose [...] 2022. Calcium 9.0 8.5 - 10.3 mg/dL [facility] Bilirubin, total 0.3 0.1 - 1.2 mg/dL [facility] Protein, pl 6.9 6.5 - 8.5 g/dL [facility] Albumin 3.8 3.5 - 5.0 g/dL [facility] Alk phos 135(H) 40 - 130 Units/L [facility] ALT 30 7 - 45 Units/L [facility] AST 41 10 - 45 Units/L [facility] Blood 11/12/2024 8:36 AM CDT 11/12/2024 9:04 AM CDT Abisai Martinez MD LAB BLOOD ORDERABLES Final Res ult Performing Organization Address [facility]/ZIP Co de Phone Number [facility] [address] [facility] [place] [address] * Hemoglobin A1c (11/12/2024 8:18 AM CDT) Hgb A1C 5.6 4.0 - 5.6 % Estimated Average Glucose 114 mg/dL [facility] Comment: The ADA recommends reporting an estimated Average Glucose (eAG) with all Hemoglobin A1c results using the equation derived from a study of 507 normal and diabetic adults. Minority populations were underrepresented and children were not included. (Diabetes Care 31:0853-8969, 2008). The eAG is not equivalent to a fasting glucose. Blood 11/12/2024 8:18 AM CDT 11/12/2024 9:05 AM CDT Alee OSMAN LAB BLOOD ORDERABLES Final Result Performing Organization Address City/State/[facility] Co de Phone Number [place] [id number] [facility] [place] [address] * XR Spine Lumbar 2 or 3 [...] by the International Society of Clinical Densitometry. [id number] us Abisai Martinez MD IM DXA PROCEDURES [...] COVID-19 antigen (10/23/2024 1:14 PM CDT) Pathologist [facility] Influenza A Ag, POC Negative Negative [facility] Influenza B Ag, POC Negative Negative [facility] COVID-19 Ag POC Presumptive Negative Presumptive Negative, Invalid [facility] Nasal 10/23/2024 1:14 PM CDT Result [facility] Alee OSMAN POINT OF CARE TEST ORDERAB LES Final Result [facility] [address] [facility] [address] [place] [address] * SCAN - LABS (10/13/2024) Provider Scanning Final Result * (ABNORMAL) Urine culture (10/10/2024 2:46 PM CDT) [facility] SCRIBED Urine Culture, Routine 100,000 Result [facility] Historical Provider LAB MICROBIOLOGY - [...] year BI-RADS Category 2: Benign Findings Result [facility] Alee OSMAN IMG MAMMO PROCEDURES Final Result * (ABNORMAL) POC Influenza A/B, COVID-19 antigen (09/25/2024 11:02 AM CDT) Pathologist [facility] Influenza A Ag, POC Positive(A) Negative [facility] Influenza B Ag, POC Negative Negative [facility] COVID-19 Ag POC Presumptive Negative Presumptive Negative, Invalid [facility] Nasal 09/25/2024 11:0 2 AM CDT Jessica Clolins CARD CLEANER POINT OF CARE TEST ORDERABLES Final Result Performing Organization Address City/State/[facility] Co de Phone Number [facility] [address] * XR Knee Right 3 Views [...] John Sparrow M.D. RB T: Report ID: [id number] Reading Location: [id number] Procedure Note John Sparrow MD - 09/18/2024 [...] John Sparrow M.D. RB T: Report ID: [id number] Reading Location: [id number] Michael Motta MD IMG XR PROCEDURES Final Re sult * Colonoscopy (07/27/2021) Anatomical Region Laterality Modality Other Historical Provider ENDOSCOPY PROCEDURES Vy l Result * Hepatitis C antibody (06/04/2020 10:29 AM BALLING HEAD TENDER) Hep C Ab NON-REACTI VE NON-REACT ALEXYS [facility] SIGNAL TO CUT-OFF 0.02 <1.00 [facility] Comment: HCV antibody was non-reactive. There is no laboratory evidence of HCV infection. In most cases, no further action is required. However, if recent HCV exposure is suspected, a test for HCV RNA (test code 76070) is suggested. For additional information please refer to http://education.Sophono/faq/PXH29v9 (This link is being provided for informational/ educational purposes only.) Blood specimen (specimen) 06/04/2020 10:29 AM BALLING HEAD TENDER 06/04/2020 10:30 AM BALLING HEAD TENDER Sangita OSMAN LAB MICROBIOLOGY - GENERA L ORDERABLES Final Result [facility] [address] [address] [address] from Last 3 Months or Most Recently Relevant to Health Maintenance Insurance [facility] MEDICARE [facility] MED[facility] Address: [place] [id number] [place] [id number] [facility] MEDICARE [facility] MED[facility] Address: [place] [id number] [address] [id number] [facility] MEDICARE AD[facility] MEDIC[facility] Address: [place] [id number] [place] [phone] Advance Directives For more information, please contact: [phone] Documents on File Type Date Recorded Patient Ophthalmic Lens Inspector Expl anation ADVANCE DIRECTIVE 05/17/2024 2:13 PM Yonis r of Privacy Attorney-Medical * Full Code (Latest Code Status on File) Date Activated Date Inactivated Comments 05/30/2024 12:38 PM 06/05/2024 6:31 PM * Full Code Date Activated Date Inactivated Comments 05/04/2023 2:33 PM 05/07/2023 3:07 AM * Full Code Date Activated Date Inactivated Comments 03/22/2021 4:39 PM 03/25/2021 6:17 PM Care Teams Salesforce Business Analyst Relationship Specialty Start Date End Date Alee Elizondo PA [address] [facility] [address] [place] [address] PCP - General Internal Medicine 07/05/23 Sharan Linton MD Referring Physician Gastroenterology 10/31/18 Martha Starks MD Consulting Physician Cardiology 12/24/20 Shama Hines MD [address] [facility] [address] [place] [address] Consulting Physician Pain Management 01/19/21 Artis Grewal MD [address] [place] [address] Consulting Physician Rheumatology 01/30/21 Amy Mayes NP [address] [facility] [address] [place] [address] Nurse Practitioner Cardiovascular Disease 04/20/24 Shailesh Dunn MD [address] [facility] [address] [address] Consulting Physician Pulmonary Disease 04/20/24 Sangita Farrar PA [address] [place] [address] Physician Host Rheumatology 05/15/24
--- OUTSIDE RECORDS SUMMARY | 2024-12-01 12:55 | XMS_ITS | Encounter Summary ---
Author Organization [facility] Address [address] [place] [address] Care Team Providers Care [place] Auditor Name Role Phone Sharan Linton MD Unavailable [phone] Martha Starks MD Unavailable [phone] Shama Hines MD Unavailable Artis Grewal MD Unavailable Alee Elizondo Primary Care Provider [phone] Amy Mayes NP Unavailable Shailesh Dunn MD Unavailable [phone] Sangita Farrar Unavailable Encounter Details Date Type Department Care Team (Latest Contact Info) Description 11/12/2024 Results Follow-Up [facility] Family Medicine [address] [place] [address] Alee Elizondo PA [address] [place] [address] [place] [address] Comprehensive metabolic panel, eGFR, Protein electrophoresis with reflex, serum with interpretation, Additional followed-up results: 3 Social History Tobacco Use Types Packs/Day Years Used Date Smoking Tobacco: Never Smokeless Tobacco: Never Comments:Never used Alcohol Use Standard Drinks/Week Comments No 0 (1 standard drink = 0.6 oz pur e alcohol) [facility] Utilities Answer Date Recorded In the past [...] on file 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 Gender Identity Female 02/15/2020 6:08 PM [...] on filedocumented in this encounter Care Teams [place] Auditor Relationship Specialty Start Date End Date Alee Elizondo PA [address] [facility] [address] [place] [address] PCP - General Internal Medicine 07/05/23 Sharan Linton MD Referring Physician Gastroenterology 10/31/18 Martha Starks MD Consulting Physician Cardiology 12/24/20 Shama Hines MD [address] [facility] [address] [address] Consulting Physician Pain Management 01/19/21 Artis Grewal MD [address] [place], [place] [address] Consulting Physician Rheumatology 01/30/21 Amy Mayes NP [address] [address] Nurse Practitioner Cardiovascular Disease 04/20/24 Shailesh Dunn MD [address] [address] Consulting Physician Pulmonary Disease 04/20/24 Sangita Farrar PA [address] [place] [address] Physician Manager Applied Rheumatology 05/15/24 documented as of this encounter
--- OUTSIDE RECORDS SUMMARY | 2024-12-01 12:55 | XMS_ITS | Clinical Summary ---
Author Organization [facility] Address [address] [place] [address] Care Team Providers Care Siderographer Name Role Phone Darvin Harden MD Primary Care Provider [phone] Source Comments [facility]non-owned Affiliates and Associated Physician Practices is amultiple site organization consisting of ambulatory clinics and hospital sitesin [place], [place], [place] and [place]. This disclosure is being madepursuant to the Care Everywhere program and may not contain all information available regarding this patient. 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 Gender Identity Not on file Sexual Orientation [...] age to complete this topic Insurance MEDICARE [facility] MEDICARE SELF PAY NO INSURANCE Member Subscriber Plan / Payer (Ef fective for All Dates) Name:Nohemy Lock Member ID:Not on file Relation to Subscriber:Not on file Name:NOHEMY LOCK Subscriber ID:Not on file Address: [address] [address] Payer ID:Not on file Group ID:Not on file Type:Self Pay Address: [place], [place] [facility] MEDICARE SELF PAY NO INSURANCE Member Subscriber Plan / Payer (Ef fective for All Dates) Name:Nohemy Lock Member ID:Not on file Relation to Subscriber:Not on file Name:NOHEMY LOCK Subscriber ID:Not on file Address: [address] [address] Payer ID:Not on file Group ID:Not on file Type:Self Pay Address: [place], [place] [facility] MEDICARE SELF PAY NO INSURANCE Member Subscriber Plan / Payer (Ef fective for All Dates) Name:Nohemy Lock Member ID:Not on file Relation to Subscriber:Not on file Name:NOHEMY LOCK Subscriber ID:Not on file Address: [facility] [place] [address] Payer ID:Not on file Group ID:Not on file Type:Self Pay Address: [place], [place] Care Teams Siderographer Relationship Specialty Start Date End Date Darvin Harden MD [address] [facility] [address] [place] [address] PCP - General 07/11/19
--- OUTSIDE RECORDS SUMMARY | 2024-12-01 12:55 | XMS_ITS | Encounter Summary ---
Author Organization [facility] Address [address] [place] [address] Care Team Providers Care Automotive Product Specialist Name Role Phone Sharan Linton MD Unavailable [phone] Martha Starks MD Unavailable [phone] Shama Hines MD Unavailable Artis Grewal MD Unavailable [phone] Alee Elizondo Primary Care Provider [phone] Amy Mayes NP Unavailable [phone] Shailesh Dunn MD Unavailable [phone] Sangita Farrar Unavailable [phone] Encounter Details Date Type Department Care Team (Late st Contact Info) Description 12/08/[address] [facility] Health Information Management [address] [place] [id number] Scanning, Provider Social History Tobacco Use Types Packs/Day Years Used Date Smoking Tobacco: Never Smokeless Tobacco: Never Comments:Never used Alcohol Use Standard Drinks/Week Comments No 0 (1 standard drink = 0.6 oz pur e alcohol) [facility] Utilities Answer Date Recorded In [...] often do you attend chur ch or scientology services? 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 Gender Identity Female 02/15/2020 6:08 PM [...] documented as of this encounter Care Teams Automotive Product Specialist Relationship Specialty Start Date End Date Alee Elizondo PA [address] [facility] [address] [place] [address] PCP - General Internal Medicine 07/05/23 Sharan Linton MD Referring Physician Gastroenterology 10/31/18 Martha Starks MD Consulting Physician Cardiology 12/24/20 Shama Hines MD [address] [facility] [address] Consulting Physician Pain Management 01/19/21 Artis Grewal MD [address] [place] [address] Consulting Physician Rheumatology 01/30/21 Amy Mayes NP [address] [address] Nurse Practitioner Cardiovascular Disease 04/20/24 Shailesh Dunn MD [address] [facility] [address] [address] Consulting Physician Pulmonary Disease 04/20/24 Sangita Farrar PA [address] [place] [address] Physician Ems Driver Rheumatology 05/15/24 documented as of this encounter
--- OUTSIDE RECORDS SUMMARY | 2024-12-01 12:55 | XMS_ITS | Referral Summary ---
Author Organization [facility] [address] Address [address] [place] [address] Care Team Providers Care Customer Service And Sales Consultant Name Role Phone Sharan Linton MD Unavailable Martha Starks MD Unavailable [phone] Shama Hines MD Unavailable Artis Grewal MD Unavailable [phone] Alee Elizondo Primary Care Provider Amy Mayes NP Unavailable [phone] Shailesh Dunn MD Unavailable [phone] Sangita Farrar Unavailable [phone] Encounters Date Type Department Care Team Description 11/22/2024 Orders Only [facility] [address] [place] [address] Sangita Farrar PA 11/22/2024 7:30 AM CDT Office Visit [facility] [address] [facility] [address] [place] [address] Alee Elizondo PA Urinary retention (Primary Dx); Pelvic lipomatosis; Elevated parathyroid hormone; Anemia, unspecified type; BMI 35.0-35.9,adult; Morbid obesity (HCC) 11/21/2024 Results Follow-Up [facility] [address] [place] [phone] Sangita Farrar PA CBC with auto differential, Differential, auto 11/21/2024 1:15 PM CDT Lab [facility] [address] [place] [address] 11/21/2024 11:15 AM CDT Office Visit [address] [phone] Sangita Farrar PA 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) (Primary Dx); Primary osteoarthritis involving multiple joints; Encounter for medication monitoring 11/15/2024 Orders Only [address] 5th [place] [address] Abisai Martinez MD Age-related osteoporosis without current pathological fracture (Primary Dx) 11/12/2024 Results Follow-Up [address] [place] [phone] Alee Elizondo PA Hemoglobin A1c 11/12/2024 Results Follow-Up [address] [place] [phone] Alee Elizondo PA Comprehensive metabolic panel, eGFR, Protein electrophoresis with reflex, serum with interpretation, Additional followed-up results: 3 11/12/2024 8:25 AM CDT Lab [facility] [address] [place] [id number] Pre-diabetes 11/12/2024 8:10 AM CDT Lab [facility] [address] [place] [phone] Age-related osteoporosis without current pathological fracture 11/08/2024 Results Follow-Up [address] [place] [phone] Abdomen Pelvis WO Contrast 11/08/2024 Orders Only [facility] [address] [facility] 5th [place] [address] Anh Segal NP Age-related osteoporosis without current pathological fracture (Primary Dx) 11/08/2024 Orders Only [facility] [address] [place] [address] ProviderTnaia MD 11/08/2024 Imaging Exam [facility] [address] [place] [address] Alee Elizondo PA 11/08/2024 2:35 PM CDT Lab [facility] [address] [place] [phone] Age-related osteoporosis without current pathological fracture 11/08/[address] [place] [phone] Abisai Martinez MD Treatment Plan Update (New reclast) 11/08/2024 12:33 PM CDT - 11/08/2024 11:59 PM CDT Hospital Encounter [facility] [address] [place] [address] Abisai Martinez MD Age-related osteoporosis without current pathological fracture Discharge Disposition: Discharge to home or self care 11/08/2024 Telephone [facility] [address] [place] [address] Alee Elizondo PA 11/08/2024 11:10 AM CDT Clinical Support [address] 5th [place] [phone] Age-related osteoporosis without current pathological fracture (Primary Dx) 11/08/2024 11:40 AM CDT Office Visit [address] [place] [phone] Abisai Martinez MD Age-related osteoporosis without current pathological fracture (Primary Dx) 11/07/[address] [place] [phone] Abisai Martinez MD 11/06/2024 Telephone [facility] [address] [address] Shailesh Dunn MD 11/06/2024 9:15 AM CDT Office Visit [address] [phone] Ciara Monge NP OWEN on CPAP (Primary Dx); PLMD (periodic limb movement disorder) 10/23/2024 1:00 PM CDT Office Visit [address] [place] [phone] Alee Elizondo PA Acute non-recurrent sinusitis, unspecified location (Primary Dx); Acute cough; BMI 34.0-34.9,adult; Morbid obesity (HCC) 10/19/2024 Orders Only [address] [place] [phone] Provider, MD Tania 10/13/2024 Orders Only [facility] Health Information Management [address] [place] [phone] Sanket, Alec 10/12/2024 Results Follow-Up [address] [place] [phone] Alee Elizondo PA SCAN - LABS 10/10/[address] [place] [phone] Alee Elizondo PA Medication Request 10/10/2024 7:30 AM CDT Office Visit [address] [place] [phone] Alee Elizondo PA Annual physical exam (Primary Dx); 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); Age-related osteoporosis without current pathological fracture; OWEN on CPAP; Moderate episode of recurrent major depressive disorder (HCC); Mixed hyperlipidemia; Pre-diabetes; Gastroesophageal reflux disease without esophagitis; Pelvic lipomatosis; BMI 35.0-35.9,adult; Morbid obesity (HCC) 10/07/2024 Orders Only [facility] Health Information Management [address] [place] [address] Alee Elizondo PA 10/04/2024 Results Follow-Up [address] [place] [address] Alee Elizondo PA Screening Mammogram Bilateral [place] 10/04/2024 Orders Only [address] [place] [address] ProviderTania MD 10/03/[address] [place] [address] Alee Elizondo PA 09/26/2024 Orders Only [address] [place] [address] Alee Elizondo PA Breast cancer screening by mammogram (Primary Dx) 09/25/2024 Results Follow-Up [address] [place] [address] Alee Elizondo PA Screening Mammogram Bilateral [place] 09/25/2024 11:00 AM CDT [facility] [address] [phone] Jessica Collins NP Influenza A (Primary Dx); Acute cough 09/20/2024 Telephone [facility] Medicine [address] [place] [address] Michael Motta MD med [facility] 09/20/2024 8:00 AM CDT Office Visit [facility] Cardiology [address] [address] [address] [place] [address] Devika Marin MD Venous insufficiency (chronic) (peripheral) (Primary Dx); Mixed hyperlipidemia 09/14/[address] [phone] Codi Branham 09/13/2024 1:44 PM CDT - 09/13/2024 11:59 PM CDT Hospital Encounter [facility] Diag Imaging [facility] [place] [address] Chronic pain of right knee Discharge Disposition: Discharge to home or self care 09/13/2024 2:45 PM CDT Office Visit [facility] Medicine [address] [place] [address] [place] [phone] Michael Motta MD Chronic pain of right knee (Primary Dx); History of total knee arthroplasty, right 09/04/2024 Results Follow-Up [facility] Medicine [address] [place] [address] [place] [phone] Alee Elizondo PA SCAN - LABS 08/31/[address] [place] [phone] Alee Elizondo PA Medical Question/Miscellaneous 08/31/2024 Orders Only [address] [place] [phone] Provider, MD Tania from Last 3 [...] She has had evaluation by Urology at [facility] and has been told there is [...] prescribed. Assessment & Plan (08/07/2023 7:55 PM HARNESSMAKER APPRENTICE): Persistent sinusitis symptoms along with cough. Will [...] provided. Assessment & Plan (05/07/2024 8:56 PM HARNESSMAKER APPRENTICE): Discussed the patient's BMI. The BMI is [...] provided. Assessment & Plan (09/06/2023 9:38 AM HARNESSMAKER APPRENTICE): Discussed the patient's BMI. The BMI is above average. BMI management plan is completed. BMI Follow-up includes: nutrition counseling, exercise counseling and education provided. Patient has an obesity-related condition (not limited to: hypertension, obstructive sleep apnea, osteoarthritis, hyperlipidemia, diabetes, etc.). Therefore, morbid obesity may be documented for patients with a BMI between 35.00-39.99. Assessment & Plan (08/07/2023 7:51 PM HARNESSMAKER APPRENTICE): Discussed the patient's BMI. The BMI is above average. BMI management plan is completed. BMI Follow-up includes: nutrition counseling, exercise counseling and education provided. Patient has an obesity-related condition (not limited to: hypertension, obstructive sleep apnea, osteoarthritis, hyperlipidemia, diabetes, etc.). Therefore, morbid obesity may be documented for patients with a BMI between 35.00-39.99. Assessment & Plan (08/03/2023 7:45 AM HARNESSMAKER APPRENTICE): Discussed the patient's BMI. The BMI is above average. BMI management plan is completed. BMI Follow-up includes: nutrition counseling, exercise counseling and education provided. Primary osteoarthritis of right knee 07/08/2023 Assessment & Plan (05/07/2024 8:56 PM HARNESSMAKER APPRENTICE): Patient has arthritis in the right knee. Planning a total knee replacement with Dr. Alexus Motta on May 30 Assessment & Plan (08/03/2023 8:28 AM HARNESSMAKER APPRENTICE): Continue per ortho. She is seeing some improvement but it is difficult to know if the knee is rheumatoid versus osteo versus other etiology. Will await recommendations from JACQUI Raya but definitely encouraged her to become active as soon as possible. Status post total knee replacement using cement, right 05/19/2023 Assessment & Plan (06/02/2023 4:56 PM HARNESSMAKER APPRENTICE): Status post total knee replacement with Dr. Ge Sexton 04 May. She has just been released from rehab following up for her TCM visit. She appears to have an area of cellulitis at the incision site. She is also complaining of increased pain. Will check CBC CMP and inflammatory markers along with an x-ray. She plans to go to [facility] for the workup. Will follow [...] 12/20/2022 Assessment & Plan (05/07/2024 8:55 PM HARNESSMAKER APPRENTICE): Patient is on medication for her rheumatoid arthritis managed by [facility] Assessment & Plan (01/22/2024 8:13 PM CDT): Medications from [facility] contribute to her immunosuppressive state. Assessment & Plan (09/06/2023 9:41 AM HARNESSMAKER APPRENTICE): Medications are managed by [facility] for her rheumatoid arthritis Assessment & Plan (04/06/2023 7:44 PM CDT): Managed by [facility]. Currently on Plaquenil methotrexate Orencia folic [...] She has had evaluation by Urology at [facility] and has been told there is [...] capacity. Assessment & Plan (09/06/2023 9:41 AM HARNESSMAKER APPRENTICE): Continue per . She did not tolerate [...] Pate. Assessment & Plan (07/18/2022 10:20 AM HARNESSMAKER APPRENTICE): CT revealed pelvic lipomatosis that is compressing [...] 02/11/2022 Assessment & Plan (09/06/2023 9:41 AM HARNESSMAKER APPRENTICE): No change. Dysfunction of both eustachian tubes 02/11/2022 Myalgia, lower leg 01/11/2022 PLMD (periodic limb movement disorder) Assessment & Plan (11/06/2024 9:20 AM CDT): The patient is unaware that her limbs are moving at night when she sleeps. Assessment & Plan (08/02/2024 11:49 AM HARNESSMAKER APPRENTICE): Asymptomatic Assessment & Plan (06/22/2022 10:31 AM HARNESSMAKER APPRENTICE): Will continue Requip 1 mg nightly Assessment [...] bedtime. Assessment & Plan (07/13/2021 11:25 AM HARNESSMAKER APPRENTICE): Due to the patient stating that she [...] hydroxychloroquine Assessment & Plan (08/23/2024 10:16 AM HARNESSMAKER APPRENTICE): Hepatitis negative 06/2020 Tspot negative 06/2020 Continue routine lab monitoring Maintain routine eye exams throughout the duration of taking hydroxychloroquine Assessment & Plan (07/30/2024 8:24 AM HARNESSMAKER APPRENTICE): Hepatitis negative 06/2020 Tspot negative 06/2020 Continue [...] hydroxychloroquine Assessment & Plan (09/01/2023 8:34 AM HARNESSMAKER APPRENTICE): Hepatitis negative 06/2020 Tspot negative 06/2020 Continue routine lab monitoring Maintain routine eye exams throughout the duration of taking hydroxychloroquine Assessment & Plan (06/29/2023 2:19 PM HARNESSMAKER APPRENTICE): Hepatitis negative 06/2020 Tspot negative 06/2020 Continue [...] hydroxychloroquine Assessment & Plan (07/14/2022 2:58 PM HARNESSMAKER APPRENTICE): Hepatitis negative 06/2020 Tspot negative 06/2020 Continue routine lab monitoring Maintain routine eye exams throughout the duration of taking hydroxychloroquine Assessment & Plan (06/03/2022 9:58 AM HARNESSMAKER APPRENTICE): Hepatitis negative 06/2020 Tspot negative 06/2020 Continue [...] hydroxychloroquine Assessment & Plan (09/03/2021 8:29 AM HARNESSMAKER APPRENTICE): Hepatitis negative 06/2020 Tspot negative 06/2020 Continue routine lab monitoring Maintain routine eye exams throughout the duration of taking hydroxychloroquine Assessment & Plan (06/03/2021 4:17 PM HARNESSMAKER APPRENTICE): Hepatitis negative 06/2020 Tspot negative 06/2020 Continue [...] hydroxychloroquine Assessment & Plan (09/02/2020 1:16 PM HARNESSMAKER APPRENTICE): Hepatitis negative 06/2020 Tspot negative 06/2020 Continue routine lab monitoring Maintain routine eye exams throughout the duration of taking hydroxychloroquine Assessment & Plan (07/09/2020 12:23 PM HARNESSMAKER APPRENTICE): Hepatitis negative 06/2020 Tspot negative 06/2020 Continue [...] 08/13/2019 Assessment & Plan (05/07/2024 8:54 PM HARNESSMAKER APPRENTICE): Patient with chronic constipation. Has been on [...] linzess Assessment & Plan (08/13/2019 8:57 AM HARNESSMAKER APPRENTICE): On Movantik with Dr. Soto Herpes zoster [...] diabetes. Assessment & Plan (05/07/2024 8:55 PM HARNESSMAKER APPRENTICE): Pre-diabetes/hyperglycemia is a precursor to Dm. Stressed [...] diabetes. Assessment & Plan (09/06/2023 9:40 AM HARNESSMAKER APPRENTICE): Pre-diabetes/hyperglycemia is a precursor to Dm. Stressed [...] diabetes. Assessment & Plan (09/11/2021 11:22 PM HARNESSMAKER APPRENTICE): Pre-diabetes/hyperglycemia is a precursor to Dm. Stressed importance of working on diet (decrease your simple sugars and one carbohydrate with each meal) and increase you exercise to achieve weight loss and this will help prevent you from progressing to diabetes. Assessment & Plan (05/29/2021 8:18 PM HARNESSMAKER APPRENTICE): Pre-diabetes/hyperglycemia is a precursor to Dm. Stressed [...] diabetes. Assessment & Plan (08/31/2020 9:34 AM HARNESSMAKER APPRENTICE): Pre-diabetes is a precursor to Dm. Stressed [...] diabetes. Assessment & Plan (08/13/2019 9:00 AM HARNESSMAKER APPRENTICE): This is a significant, separately identifiable problem [...] b.I.d. Assessment & Plan (05/07/2024 8:54 PM HARNESSMAKER APPRENTICE): Depression symptoms are stable with Wellbutrin XL 150 Cymbalta 60 b.i.d. Assessment & Plan (04/21/2024 8:50 PM CDT): Depression symptoms are stable with the Wellbutrin XL 150 and Cymbalta 60 b.i.d. Assessment & Plan (01/22/2024 8:11 PM CDT): Depression symptoms are stable with Wellbutrin and Cymbalta Assessment & Plan (09/06/2023 9:40 AM HARNESSMAKER APPRENTICE): Depression is stable with Wellbutrin and Cymbalta Assessment & Plan (08/03/2023 8:31 AM HARNESSMAKER APPRENTICE): Stable with Cymbalta 60 and Wellbutrin XL [...] Cymbalta Assessment & Plan (09/11/2021 11:26 PM HARNESSMAKER APPRENTICE): Continue Wellbutrin and Cymbalta Assessment & Plan (05/29/2021 8:22 PM HARNESSMAKER APPRENTICE): Continue Wellbutrin and Cymbalta Assessment & Plan (05/24/2021 10:39 AM HARNESSMAKER APPRENTICE): Continue Wellbutrin and Cymbalta Assessment & Plan (12/24/2020 9:07 AM CDT): Continue wellbutrin and cymbalta Assessment & Plan (08/31/2020 9:35 AM HARNESSMAKER APPRENTICE): Continue wellbutrin and cymbalta Assessment & Plan (02/18/2020 9:47 PM CDT): Stable with the Cymbalata Assessment & Plan (08/13/2019 8:59 AM HARNESSMAKER APPRENTICE): Stable with Cymbalta and Wellbutrin Assessment & [...] regimen. Med list updated to reflect the [id number] one daily and Prozac 40mg. Mixed hyperlipidemia 03/29/2018 Assessment & Plan (10/22/2024 1:06 PM CDT): Encouraged patient to follow low fat/low chol diet like the Mediterranean diet. Increase good fats in the diet. Increase exercise. Monitor labs as needed. Continue Crestor 10 Assessment & Plan (05/07/2024 8:54 PM HARNESSMAKER APPRENTICE): Encouraged patient to follow low fat/low chol [...] statin Assessment & Plan (09/06/2023 9:42 AM HARNESSMAKER APPRENTICE): Encouraged patient to follow low fat/low chol [...] statin Assessment & Plan (09/11/2021 11:26 PM HARNESSMAKER APPRENTICE): Encouraged patient to follow low fat/low chol diet like the Mediterranean diet. Increase good fats in the diet. Increase exercise. Monitor labs as needed. Continue statin Assessment & Plan (05/29/2021 8:22 PM HARNESSMAKER APPRENTICE): Encouraged patient to follow fat/low chol diet like the Mediterranean diet. Increase good fats in the diet. Increase exercise. Monitor labs as needed. Continue statin Assessment & Plan (05/24/2021 10:39 AM HARNESSMAKER APPRENTICE): Encouraged patient to follow fat/low chol diet like the Mediterranean diet. Increase good fats in the diet. Increase exercise. Monitor labs as needed. Continue statin Assessment & Plan (12/24/2020 9:07 AM CDT): Encouraged patient to follow fat/low chol diet like the Mediterranean diet. Increase good fats in the diet. Increase exercise. Monitor labs as needed. Continue statin Assessment & Plan (08/31/2020 9:34 AM HARNESSMAKER APPRENTICE): Encouraged patient to follow fat/low chol diet like the Mediterranean diet. Increase good fats in the diet. Increase exercise. Monitor labs as needed. Continue statin Assessment & Plan (02/18/2020 9:46 PM CDT): Encouraged patient to continue low fat/low chol diet. Continue exercise. Increase good fats in the diet. Monitor labs as needed. Assessment & Plan (08/13/2019 8:59 AM HARNESSMAKER APPRENTICE): Encouraged patient to continue low fat/low chol [...] future Assessment & Plan (09/06/2023 9:40 AM HARNESSMAKER APPRENTICE): Continue PPI Assessment & Plan (04/06/2023 7:36 PM CDT): Continue PPI p.r.n. Assessment & Plan (01/20/2023 8:13 PM CDT): Continue PPI Assessment & Plan (09/12/2022 6:13 PM CDT): Continue PPI p.r.n. Assessment & Plan (06/03/2022 3:40 PM HARNESSMAKER APPRENTICE): Pyrosis poorly controlled on Nexium. Pt has [...] PPI Assessment & Plan (09/11/2021 11:26 PM HARNESSMAKER APPRENTICE): Continue PPI Assessment & Plan (12/24/2020 9:05 AM CDT): Continue PPI Assessment & Plan (02/18/2020 9:45 PM CDT): Continue PPI. Saw Dr. Linton for increased GERD sxs. If persist, encouraged to followup again with Dr. Linton. Assessment & Plan (08/13/2019 8:58 AM HARNESSMAKER APPRENTICE): Stable with PPI Assessment & Plan (04/29/2019 [...] exertion) Assessment & Plan (06/22/2022 10:30 AM HARNESSMAKER APPRENTICE): Patient is not currently using inhalers. She [...] water pressure while sleeping. Her DME is [facility]. I have sent an order over to [facility] due to her changing insurances. Assessment & Plan (10/22/2024 1:05 PM CDT): Managed by Dr. Dunn. Continue CPAP Assessment & Plan (08/02/2024 11:49 AM HARNESSMAKER APPRENTICE): Due to the patient stating the pressure [...] She denied need for supplies. DME [facility] Assessment & Plan (05/07/2024 8:55 PM HARNESSMAKER APPRENTICE): Continue with CPAP. Assessment & Plan (04/21/2024 8:49 PM CDT): Continue per Dr. Dunn. Has all her needed supplies for CPAP which she is using every night. Continue with Requip 0.5 mg HS for restless leg Assessment & Plan (01/22/2024 8:08 PM CDT): Continue CPAP per Dr. Dunn Assessment & Plan (09/06/2023 9:40 AM HARNESSMAKER APPRENTICE): Continue CPAP Assessment & Plan (06/21/2023 10:14 AM HARNESSMAKER APPRENTICE): Patient continue to wear her CPAP at [...] CPAP Assessment & Plan (06/22/2022 10:31 AM HARNESSMAKER APPRENTICE): Will continue CPAP therapy at an auto titrating range of 7-20 cm water pressure. Denied need for supplies. DME [facility] Assessment & Plan (05/02/2022 [...] pressure. Patient denied need for supplies. DME [facility] patient. Patient is benefitting CPAP Assessment & Plan (09/11/2021 11:22 PM HARNESSMAKER APPRENTICE): Continue CPAP. Patient has all needed supplies. Assessment & Plan (07/13/2021 11:27 AM HARNESSMAKER APPRENTICE): Due to the patient stating she does not have enough pressure in her machine, I have increased the pressure to 13 cm water pressure. The patient denied need for for supplies. [facility] patient. Have also ordered a new smart card set at 13 cm water pressure. Benefitting from CPAP therapy Assessment & Plan (05/29/2021 8:14 PM HARNESSMAKER APPRENTICE): Continue CPAP. Assessment & Plan (02/17/2021 11:09 AM CDT): The patient continues to be compliant with her CPAP at 8 cm water pressure. She has developed worsening daytime hypersomnia. She also has morning headaches and dry mouth. I have recommended proceeding with a CPAP titration study starting at 8 cm water pressure. Her DME is [facility]. Assessment & Plan (12/24/2020 9:04 AM CDT): Continue CPAP. Would like to see Pulm[facility] at [facility] as difficulty getting in consistently at [place] and most of her care is now [facility] Assessment & Plan (02/18/2020 9:44 PM CDT): Continue CPAP Assessment & Plan (08/13/2019 8:46 AM HARNESSMAKER APPRENTICE): Using the CPAP. Has equipment as needed. [...] planned. Assessment & Plan (08/23/2024 10:16 AM HARNESSMAKER APPRENTICE): 02/2021 XR L knee with mild to moderate OA, now s/p B TKA. Following with ortho as planned. Assessment & Plan (07/30/2024 11:23 AM HARNESSMAKER APPRENTICE): 02/2021 XR L knee with mild to [...] March. Assessment & Plan (09/01/2023 3:42 PM HARNESSMAKER APPRENTICE): 02/2021 XR L knee with mild to moderate OA, R knee negative. Had injections with ortho without benefit, now s/p L TKA. Assessment & Plan (06/30/2023 12:46 PM HARNESSMAKER APPRENTICE): 02/2021 XR L knee with mild to [...] g/d. Assessment & Plan (07/15/2022 1:41 PM HARNESSMAKER APPRENTICE): 02/2021 XR L knee with mild to moderate OA, R knee negative. Had injections with ortho with benefit. Unable to afford PT. Can continue Tylenol Arthritis, not to exceed 4 g/d. Assessment & Plan (06/03/2022 9:58 AM HARNESSMAKER APPRENTICE): 02/2021 XR L knee with mild to [...] evaluation. Assessment & Plan (09/03/2021 11:27 AM HARNESSMAKER APPRENTICE): XR L knee with mild to moderate [...] able. Assessment & Plan (06/04/2021 10:27 AM HARNESSMAKER APPRENTICE): XR L knee with mild to moderate [...] above. Assessment & Plan (09/03/2020 12:23 PM HARNESSMAKER APPRENTICE): 10/27/2017 XR L knee: mild tricompartmental OA. Will continue meloxicam as above. Assessment & Plan (07/09/2020 12:24 PM HARNESSMAKER APPRENTICE): 10/27/2017 XR L knee: mild tricompartmental OA. [...] Plan (10/22/2024 1:04 PM CDT): Continue per [facility]. Continue Plaquenil methotrexate Orencia folic acid Mobic gabapentin. Assessment & Plan (08/23/2024 12:54 PM HARNESSMAKER APPRENTICE): Moderate cdai with report of increasing pain, [...] needed. Assessment & Plan (07/30/2024 11:22 AM HARNESSMAKER APPRENTICE): Moderate cdai with report of increased morning [...] phone visit with labs near her home ([facility] in [place]), but the following month will need to plan for an in person visit. She expressed understanding and agreement with this plan. Continue methotrexate 20 mg weekly, folic acid 2 mg daily, and hydroxychloroquine 200 mg BID. Labs today as below. Assessment & Plan (05/07/2024 8:55 PM HARNESSMAKER APPRENTICE): Managed by [facility]. Currently on Plaquenil and methotrexate and Orencia folic acid Mobic and gabapentin. Stressed she needs to be in contact with her process controller on when and which medicines to stop for the surgery. Assessment & Plan (04/21/2024 8:49 PM CDT): Continue per [facility]. They currently manage her rheumatoid arthritis [...] (01/22/2024 8:17 PM CDT): Continue per [facility] as they manage her condition. Assessment & Plan (11/24/2023 9:58 AM CDT): Low cdai without inflammatory sounding pain. Will continue methotrexate 20 mg weekly, folic acid 2 mg daily, hydroxychloroquine 200 mg BID, and Orencia and monitor. Labs today as below. Follow up in 3 months or sooner as needed. Assessment & Plan (09/06/2023 9:42 AM HARNESSMAKER APPRENTICE): Rheumatoid arthritis is managed by [facility]. Currently on Plaquenil methotrexate Orencia and folic acid Assessment & Plan (09/01/2023 3:39 PM HARNESSMAKER APPRENTICE): Overall stable without notable synovitis and no inflammatory sounding pain. Will continue methotrexate 20 mg weekly, folic acid 2 mg daily, hydroxychloroquine 200 mg BID, and Orencia and monitor. Labs today as below. Follow up in 3 months or sooner as needed. Assessment & Plan (08/03/2023 8:28 AM HARNESSMAKER APPRENTICE): Continue with rheumatology. Assessment & Plan (06/30/2023 12:43 PM HARNESSMAKER APPRENTICE): Overall stable without notable synovitis and no inflammatory sounding pain. Will continue methotrexate 20 mg weekly, folic acid 2 mg daily, hydroxychloroquine 200 mg BID, and Orencia and monitor. Labs today as below. Assessment & Plan (06/02/2023 4:49 PM HARNESSMAKER APPRENTICE): Continue per Rheumatology Assessment & Plan (04/06/2023 7:35 PM CDT): Continue per Rheumatology. She has been in discussion with them on what medications to stop prior to her knee surgery. She states she was told to take all of her medicines accept the Orencia. Assessment & Plan (01/20/2023 8:12 PM CDT): Continue per Rheumatology [facility] Assessment & Plan (01/13/2023 3:42 [...] Plan (09/12/2022 6:06 PM CDT): Continue with [facility] Assessment & Plan (07/15/2022 1:41 PM HARNESSMAKER APPRENTICE): Low cdai. Significantly improved after IM triamcinolone [...] needed. Assessment & Plan (06/03/2022 3:37 PM HARNESSMAKER APPRENTICE): High cdai. Previously felt well controlled with current regimen. Due to burden of disease will give patient a triamcinolone injection. Patient made aware of SE of steroids including but not limited to HTN, increased blood glucose, cataracts, glaucoma, AVN, and osteoporosis with adjunct faculty for medical terminology use. Should she flare again shortly after [...] (01/23/2022 4:57 PM CDT): Continue management per [facility] Assessment & Plan (12/07/2021 9:02 AM CDT): Low cdai. Denies inflammatory sounding joint pain. Continue methotrexate 25 mg weekly, folic acid to 2 mg daily, Rinvoq 15 mg daily, hydroxychloroquine 200 mg BID, and cyclobenzaprine 5 mg qhs and monitor. Labs today as below. Plan for follow up in 3 months or sooner as needed. Assessment & Plan (09/11/2021 11:14 PM HARNESSMAKER APPRENTICE): Continue per [facility] Assessment & Plan (09/03/2021 11:25 AM HARNESSMAKER APPRENTICE): cdai = 12. Pt suspects increased joint [...] needed. Assessment & Plan (06/04/2021 10:25 AM HARNESSMAKER APPRENTICE): Low cdai. Denies inflammatory sounding pain at present. Will plan to continue methotrexate 25 mg weekly, folic acid to 2 mg daily, Rinvoq 15 mg daily, hydroxychloroquine 200 mg BID, and cyclobenzaprine 5 mg qhs and monitor. Labs today as below. Plan for follow up in 3 months or sooner as needed. Assessment & Plan (05/31/2021 9:15 PM HARNESSMAKER APPRENTICE): Continue per Rheumatology Assessment & Plan (05/29/2021 8:13 PM HARNESSMAKER APPRENTICE): Continue per Rheumatology. Currently on Plaquenil methotrexate and folic acid. Assessment & Plan (05/24/2021 10:38 AM HARNESSMAKER APPRENTICE): Continue per Rheumatology Assessment & Plan (03/05/2021 [...] needed. Assessment & Plan (09/03/2020 12:22 PM HARNESSMAKER APPRENTICE): Low cdai. Continues to feel improved with [...] needed. Assessment & Plan (08/31/2020 9:34 AM HARNESSMAKER APPRENTICE): Continue per [facility] Assessment & Plan (07/09/2020 12:22 PM HARNESSMAKER APPRENTICE): 64yoF with a h/o seropositive RA diagnosed [...] time. Assessment & Plan (06/04/2020 11:14 AM HARNESSMAKER APPRENTICE): 64yoF with a h/o seropositive RA diagnosed [...] needed. Assessment & Plan (05/14/2020 9:33 PM HARNESSMAKER APPRENTICE): Refer to new Senior Clinical Data Analyst as Dr. Soto has . Assessment & Plan (02/18/2020 9:46 PM CDT): Continue per Rheum Assessment & Plan (08/13/2019 8:59 AM HARNESSMAKER APPRENTICE): Continue per Dr. Soto Assessment & Plan [...] and indigestion Reclast 03/28/2019, 07/09/2020, 07/2021 Pause [id number] Restart ZOL 11/25 Assessment & Plan (11/08/2024 [...] recommendations from the bone metabolism group at [facility] Dr. Martinez. Appointment is scheduled in November. Has been on Reclast and Forteo. She also continues with vitamin-D Assessment & Plan (01/22/2024 8:08 PM CDT): Patient with osteoporosis. Has not been responding to Reclast. Forteo was tried by [facility] and she could not tolerate. Has [...] of her osteoporosis, recommended evaluation by the [facility], unfortunately their first available appt was in November 2024. Recommended today that she check with [facility] Osteoporosis center (at [facility]) to see how far out they are scheduling new patients, though she does not like this option due to distance from her house. Assessment & Plan (09/06/2023 9:40 AM HARNESSMAKER APPRENTICE): Managed by [facility]. Per patient they are making a referral to bone metabolism at [facility] she has not seen significant improvement with the Forteo or the Reclast. Assessment & Plan (09/01/2023 3:43 PM HARNESSMAKER APPRENTICE): DEXA: Lspine BMD 0.809 Tscore -2.2, L [...] of her osteoporosis, recommend evaluation by the [facility], provided contact info for Dr. Castillo. Pt in agreement with plan. Assessment & Plan (06/30/2023 12:49 PM HARNESSMAKER APPRENTICE): DEXA: Lspine BMD 0.809 Tscore -2.2, L [...] PM CDT): Continue to monitor. Managed by [facility]. Patient is on Reclast calcium vitamin-D [...] exercise Assessment & Plan (07/15/2022 1:42 PM HARNESSMAKER APPRENTICE): 01/27/2021 DEXA: Lspine -1.8, L femoral neck -1.9, L total hip -1.2, R femoral neck -2.3, R total hip -1.0, FRAX major 32% and hip 7%. Received Reclast 07/2021. Continue yearly Reclast, scheduled for 07/22 Assessment & Plan (06/03/2022 3:38 PM HARNESSMAKER APPRENTICE): 01/27/2021 DEXA: Lspine -1.8, L femoral neck [...] Plan (01/23/2022 5:02 PM CDT): Managed by [facility] currently on Reclast calcium and vitamin-D Assessment & Plan (12/07/2021 9:04 AM CDT): 01/27/2021 DEXA: Lspine -1.8, L femoral neck -1.9, L total hip -1.2, R femoral neck -2.3, R total hip -1.0, FRAX major 32% and hip 7%. Received Reclast 07/2021. Continue yearly Reclast. Assessment & Plan (09/03/2021 11:26 AM HARNESSMAKER APPRENTICE): 01/27/2021 DEXA: Lspine -1.8, L femoral neck -1.9, L total hip -1.2, R femoral neck -2.3, R total hip -1.0, FRAX major 32% and hip 7%. Received Reclast 07/2021. Continue yearly reclast and daily vitamin D-calcium supplement. Assessment & Plan (06/04/2021 10:27 AM HARNESSMAKER APPRENTICE): 01/27/2021 DEXA: Lspine -1.8, L femoral neck [...] order provided today, she will schedule at [facility] Assessment & Plan (12/24/2020 9:06 AM CDT): Continue Reclast thru Rheum Continue calcium, vitD and exercise Assessment & Plan (12/03/2020 10:45 AM CDT): Vitamin D level was 68. Received Reclast 07/09/2020. Last DEXA per available records was 01/31/2019, due this summer - order provided today, she will schedule at [facility] Assessment & Plan (09/03/2020 12:23 PM HARNESSMAKER APPRENTICE): Vitamin D level was 68. Received Reclast 07/09/2020. Last DEXA per available records was 01/31/2019, due this summer. Assessment & Plan (07/09/2020 12:23 PM HARNESSMAKER APPRENTICE): Overdue for Reclast, last infusion was 03/28/2019, will receive infusion today. Vitamin D level was 68 Last DEXA per available records was 01/31/2019 Assessment & Plan (06/04/2020 11:15 AM HARNESSMAKER APPRENTICE): Overdue for Reclast, last infusion was 03/28/2019, will check benefits. Recheck vitamin D level now. Last DEXA per available records was 01/31/2019 Assessment & Plan (02/18/2020 9:46 PM CDT): Calcium, vit D and exercise. Continue to monitor DXA Assessment & Plan (08/13/2019 8:58 AM HARNESSMAKER APPRENTICE): Continue with Calcium, Vit D and Exercise. Recheck DXA iin Fall 2019 with mammogram Resolved Problems Problem Noted Date Diagnosed Date Resolved Date Encounter for pre-operative examination 05/07/2024 10/09/2024 Assessment & Plan (05/07/2024 8:57 PM HARNESSMAKER APPRENTICE): I have examined this patient and ordered [...] Krishnamurthy. 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 Daniels Stressed importance of very close follow-up BMI 37.0-37.9, adult 09/06/2023 024 Assessment & Plan (10/13/2023 7:38 AM CDT): Discussed the patient's BMI. The BMI is above average. BMI management plan is completed. BMI Follow-up includes: nutrition counseling, exercise counseling and education provided. Assessment & Plan (09/06/2023 9:42 AM HARNESSMAKER APPRENTICE): Discussed the patient's BMI. The BMI is above average. BMI management plan is completed. BMI Follow-up includes: nutrition counseling, exercise counseling and education provided. Hyperglycemia 09/06/2023 09/06/2023 Positive depression screening 09/06/2023 09/06/2023 Annual physical exam 09/06/2023 024 Assessment & Plan (09/06/2023 9:43 AM HARNESSMAKER APPRENTICE): Encouraged healthy lifestyle, good nutrition and exercise. Encouraged Calcium and Vitamin D and weight bearing exercise for bone health. Reviewed immunizations Reviewed age appropirate screenings. Orthopedic aftercare 08/09/2023 025 Right knee pain 08/09/2023 09/06/2023 Sinus congestion 08/07/2023 09/06/2023 Assessment & Plan (08/07/2023 7:54 PM HARNESSMAKER APPRENTICE): Persistent sinusitis symptoms along with cough. Will start doxy b.i.d.. Start antihistamine (Claritin OR Zyrtec), Mucinex 12hour and Steroid nasal spray (Flonase). Push fluids. Rest. Supportive care. If sxs worsen or don\'t improve, pt is to followup in the office. BMI 35.0-35.9,adult 08/03/2023 09/06/19 24 Assessment & Plan (08/07/2023 7:51 PM HARNESSMAKER APPRENTICE): Discussed the patient's BMI. The BMI is above average. BMI management plan is completed. BMI Follow-up includes: nutrition counseling, exercise counseling and education provided. Assessment & Plan (08/03/2023 8:29 AM HARNESSMAKER APPRENTICE): Discussed the patient's BMI. The BMI is [...] 01/22/2024 Assessment & Plan (06/02/2023 4:57 PM HARNESSMAKER APPRENTICE): Later in the day received critical lab call for a CO2 value at 42. My staff contacted the patient and she was instructed to go to the ER for further evaluation to determine underlying cause. She states throughout the day she has noticed a little bit more shortness of breath. She plans to have her brother drive her to [facility] [place]. Charge nurse was notified of the arrival [...] surgery. Will defer cardiac clearance to her procedures tech. Her chronic medical conditions are stable. [facility] as instructed her to hold the [...] provided. Assessment & Plan (06/02/2023 8:27 AM HARNESSMAKER APPRENTICE): Discussed the patients BMI: The BMI is [...] [place] on May 04 at [facility]. Need for vaccination for Strep pneumoniae [...] symptoms worsen or do not respond to [id number] allergy medicines within the next week she [...] provided. Assessment & Plan (08/23/2022 2:19 PM HARNESSMAKER APPRENTICE): Discussed the patient's BMI. The BMI is [...] plans Assessment & Plan (07/18/2022 10:20 AM HARNESSMAKER APPRENTICE): CT revealed pelvic lipomatosis that is compressing [...] 12/20/2022 Assessment & Plan (07/18/2022 10:21 AM HARNESSMAKER APPRENTICE): CT revealed pelvic lipomatosis that is compressing [...] plan, Assessment & Plan (07/08/2022 12:33 PM HARNESSMAKER APPRENTICE): Patient has had dysuria. She was started [...] STAT abd/pelvis with and without contrast at [facility]. Check labs STAT. Acute right flank pain 07/08/202204/06 Assessment & Plan (07/18/2022 10:21 AM HARNESSMAKER APPRENTICE): CT revealed pelvic lipomatosis that is compressing [...] plan, Assessment & Plan (07/08/2022 5:58 PM HARNESSMAKER APPRENTICE): Images from the original note were not [...] STAT abd/pelvis with and without contrast at [facility]. Check labs STAT. STAT CT Abd/pelvis without [...] 09/06/2023 Assessment & Plan (07/08/2022 12:33 PM HARNESSMAKER APPRENTICE): Patient has had dysuria. She was started [...] STAT abd/pelvis with and without contrast at [facility]. Check labs STAT. Assessment & Plan (07/06/2022 8:50 AM HARNESSMAKER APPRENTICE): Pt presents with dysuria. Urine dip completed. [...] 35.00-39.99. Assessment & Plan (07/18/2022 10:23 AM HARNESSMAKER APPRENTICE): Discussed the patient's BMI. The BMI is above average. BMI management plan is completed. BMI Follow-up includes: nutrition counseling, exercise counseling and education provided. Assessment & Plan (07/08/2022 12:30 PM HARNESSMAKER APPRENTICE): Discussed the patient's BMI. The BMI is [...] She has received multiple injections from her process controller regarding her knee but yesterday when [...] 01/23/2022 Assessment & Plan (09/11/2021 11:28 PM HARNESSMAKER APPRENTICE): Patient has never had a full skin exam. She has quite a few lesions scattered and would benefit from a full exam. Will make referral Annual physical exam 09/11/2021 07/23/2 022 Assessment & Plan (09/11/2021 11:28 PM HARNESSMAKER APPRENTICE): Encouraged healthy lifestyle, good nutrition and exercise. Encouraged Calcium and Vitamin D and weight bearing exercise for bone health. Reviewed immunizations Reviewed age appropirate screenings. Cough 08/13/2021 01/23/2022 Assessment & Plan (08/13/2021 3:43 PM HARNESSMAKER APPRENTICE): Patient to presume positive COVID/FLU until results are available and plan to self isolate for up to 10 days from the onset of sxs. Check COVID/FLU test thru [facility] collection site in [place]. Let pt know the newest CDC recommendations [...] future. Assessment & Plan (07/13/2021 11:28 AM HARNESSMAKER APPRENTICE): I have ordered the patient Claritin 10 [...] provided. Assessment & Plan (09/11/2021 11:27 PM HARNESSMAKER APPRENTICE): Obesity is unchanged. Discussed the patient's BMI. The BMI is above average. BMI management plan is completed. BMI Follow-up includes: nutrition counseling, exercise counseling and education provided. Assessment & Plan (05/29/2021 8:24 PM HARNESSMAKER APPRENTICE): Obesity is unchanged. Discussed the patient's BMI. The BMI is above average. BMI management plan is completed. BMI Follow-up includes: nutrition counseling, exercise counseling and education provided. Assessment & Plan (05/12/2021 1:26 PM HARNESSMAKER APPRENTICE): Obesity is unchanged. Discussed the patient's BMI. The BMI is above average. BMI management plan is completed. BMI Follow-up includes: nutrition counseling, exercise counseling and education provided. BMI 37.0-37.9, adult 05/12/2021 022 Assessment & Plan (09/11/2021 11:27 PM HARNESSMAKER APPRENTICE): Obesity is unchanged. Discussed the patient's BMI. The BMI is above average. BMI management plan is completed. BMI Follow-up includes: nutrition counseling, exercise counseling and education provided. Assessment & Plan (05/29/2021 8:24 PM HARNESSMAKER APPRENTICE): Obesity is unchanged. Discussed the patient's BMI. The BMI is above average. BMI management plan is completed. BMI Follow-up includes: nutrition counseling, exercise counseling and education provided. Assessment & Plan (05/12/2021 1:26 PM HARNESSMAKER APPRENTICE): Obesity is unchanged. Discussed the patient's BMI. The BMI is above average. BMI management plan is completed. BMI Follow-up includes: nutrition counseling, exercise counseling and education provided. Tinea corporis 04/14/2021 01/23/2022 Assessment & Plan (05/31/2021 9:15 PM HARNESSMAKER APPRENTICE): Improving with Lotrisone. Keep the area clean and dry Assessment & Plan (05/29/2021 8:24 PM HARNESSMAKER APPRENTICE): Lotrisone to pharmacy. Encouraged her to keep the area clean and dry use her dryer to dry the skin before applying the cream. She is to call if symptoms worsen or do not resolve. Need for immunization against influenza 04/14/2021 05/31/2021 Assessment & Plan (05/29/2021 8:24 PM HARNESSMAKER APPRENTICE): Fluid updated in the office Medicare annual wellness visit, subsequent 04/13/2021 05/31/2021 Assessment & Plan (05/29/2021 8:23 PM HARNESSMAKER APPRENTICE): Encouraged healthy lifestyle, good nutrition and exercise. [...] 12/30/2020 Assessment & Plan (08/31/2020 9:31 AM HARNESSMAKER APPRENTICE): Error. This should be right calf but PT order sent and corrected so unable to remove. Fatigue 08/31/2020 09/06/2023 Assessment & Plan (04/06/2023 7:43 PM CDT): Probably multifactorial. Check labs and followup to re-evaluate Assessment & Plan (05/02/2022 9:16 PM CDT): Probably multifactorial. Check labs and followup to re-evaluate Assessment & Plan (08/31/2020 9:34 AM HARNESSMAKER APPRENTICE): Probably multifactorial. Check labs and followup to re-evaluate Pain in both lower extremities 08/31/2020 09/06/2023 Assessment & Plan (09/01/2023 3:41 PM HARNESSMAKER APPRENTICE): Cramping lower leg pain has resolved with [...] 021 Assessment & Plan (08/31/2020 9:33 AM HARNESSMAKER APPRENTICE): Obesity is unchanged. Discussed the patient's BMI. The BMI is above average. BMI management plan is completed. BMI Follow-up includes: nutrition counseling, exercise counseling and education provided. Pain of right calf 08/26/2020 Assessment & Plan (08/31/2020 9:31 AM HARNESSMAKER APPRENTICE): This is a significant, separately identifiable problem that was evaluated and managed on the same day as the wellness exam Unable to rule out DVT with her calf pain/sxs. Check STAT Venous doppler. Recvd Results and discussed with patient via phone. Negative for DVT. Recommend PT. Prefers [place] Annual physical exam 08/24/2020 Assessment & Plan (08/31/2020 9:34 AM HARNESSMAKER APPRENTICE): Encouraged healthy lifestyle, good nutrition and exercise. Encouraged Calcium and Vitamin D and weight bearing exercise for bone health. Reviewed immunizations Reviewed age appropirate screenings. Dizziness 05/07/2020 09/06/2023 Assessment & Plan (05/14/2020 9:35 PM HARNESSMAKER APPRENTICE): Suspect the dizziness is inner ear related. [...] imaging. Assessment & Plan (05/07/2020 1:49 PM HARNESSMAKER APPRENTICE): Declines to report to er now 'I [...] 05/14/2020 Assessment & Plan (05/07/2020 1:49 PM HARNESSMAKER APPRENTICE): Declines to report to er now 'I [...] 12/30/2020 Assessment & Plan (05/07/2020 1:49 PM HARNESSMAKER APPRENTICE): Declines to report to er now 'I [...] provided Assessment & Plan (05/31/2021 9:15 PM HARNESSMAKER APPRENTICE): Mammogram order provided Assessment & Plan (02/18/2020 9:47 PM CDT): Mammogram order provided today Medicare annual wellness visit, subsequent 02/15/2020 02/15/2020 Precordial pain 09/04/2019 09/06/2023 Assessment & Plan (08/07/2023 7:50 PM HARNESSMAKER APPRENTICE): Workup in the hospital. Cardiology states her [...] inhaler. Assessment & Plan (07/13/2021 11:26 AM HARNESSMAKER APPRENTICE): The patient will continue with Dulera 2 [...] 020 Assessment & Plan (08/13/2019 8:59 AM HARNESSMAKER APPRENTICE): Encouraged healthy lifestyle, good nutrition and exercise. Encouraged Calcium and Vitamin D and weight bearing exercise for bone health. Reviewed immunizations Reviewed age appropirate screenings. Obesity, morbid, BMI 40.0-49.9 08/13/2019 09/23/2020 Assessment & Plan (08/26/2020 7:10 AM HARNESSMAKER APPRENTICE): Obesity is unchanged. Discussed the patient's BMI. The BMI is above average. BMI management plan is completed. BMI Follow-up includes: nutrition counseling, exercise counseling and education provided. Assessment & Plan (05/14/2020 9:33 PM HARNESSMAKER APPRENTICE): Obesity is unchanged. Discussed the patient's BMI. [...] provided. Assessment & Plan (08/13/2019 8:58 AM HARNESSMAKER APPRENTICE): Obesity is unchanged. Discussed the patient's BMI. [...] change Assessment & Plan (08/13/2019 9:01 AM HARNESSMAKER APPRENTICE): This is a significant, separately identifiable problem [...] 01/22/2024 Assessment & Plan (09/06/2023 9:42 AM HARNESSMAKER APPRENTICE): Probably multifactorial. Check labs and followup to re-evaluate Assessment & Plan (09/03/2021 11:28 AM HARNESSMAKER APPRENTICE): She notes increased fatigue and lack of [...] re-evaluate Assessment & Plan (08/13/2019 9:08 AM HARNESSMAKER APPRENTICE): Probably multifactorial. Check labs and followup to re-evaluate Check labs prior to next visit BMI 40.0-44.9, adult 08/02/2019 020 Assessment & Plan (08/13/2019 8:57 AM HARNESSMAKER APPRENTICE): Obesity is unchanged. Discussed the patient's BMI. The BMI is above average. BMI management plan is completed. BMI Follow-up includes: nutrition counseling, exercise counseling and education provided. Assessment & Plan (08/02/2019 7:21 AM HARNESSMAKER APPRENTICE): Obesity is unchanged. Discussed the patient's BMI. The BMI is above average. BMI management plan is completed. BMI Follow-up includes: nutrition counseling, exercise counseling and education provided. Morbid obesity 08/02/2019 08/13/2019 Assessment & Plan (08/02/2019 7:20 AM HARNESSMAKER APPRENTICE): Obesity is unchanged. Discussed the patient's BMI. The BMI is above average. BMI management plan is completed. BMI Follow-up includes: nutrition counseling, exercise counseling and education provided. Acute non-recurrent maxillary sinusitis 08/02/2019 08/13/2019 Assessment & Plan (08/02/2019 7:47 AM HARNESSMAKER APPRENTICE): Start antibiotic, antihistamine, Mucinex and Steroid nasal [...] is being sent directly to [facility] and they were working her in [...] 21 Assessment & Plan (05/14/2020 9:33 PM HARNESSMAKER APPRENTICE): Completed Doxy and steroid. No s/s infection. [...] p.r.n. Assessment & Plan (08/13/2019 8:59 AM HARNESSMAKER APPRENTICE): Continue with NSAIDs prn Atheroscler of [place] artery of both legs with intermit claudication 10/31/2018 12/20/2022 Assessment & Plan (09/11/2021 11:23 PM HARNESSMAKER APPRENTICE): Continue per vascular. She is on aspirin and statin Assessment & Plan (12/24/2020 9:03 AM CDT): Sxs stable. On ASA, statin and encouraged daily exercise. Assessment & Plan (02/18/2020 9:43 PM CDT): Continue per cardio. On ASA and statin Assessment & Plan (08/13/2019 8:45 AM HARNESSMAKER APPRENTICE): Continues with Dr. Alonso salmeron Assessment & Plan (11/01/2018 11:00 PM CDT): Pt sxs well controlled. 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 Continue per cardio Depression 07/16/2018 09/11/2021 Frontal sinusitis 06/26/2018 12/24/2020 Leukopenia 03/29/2018 12/30/2020 Other chronic pain 08/05/2017 3 Chronic seasonal allergic rh initis due to pollen 04/25/2017 12/30/2020 Assessment & Plan (12/24/2020 9:03 AM CDT): Continue current regimen with singulair and otc Assessment & Plan (02/18/2020 9:44 PM CDT): Continue with otc regimen Assessment & Plan (08/13/2019 8:46 AM HARNESSMAKER APPRENTICE): Continue current regimen Assessment & Plan (11/01/2018 [...] potassium Assessment & Plan (09/11/2021 11:26 PM HARNESSMAKER APPRENTICE): Bp is stable/in acceptable range for any co-morbidities. Encouraged to limit sodium intake and exercise for weight control. Currently stable without medication Assessment & Plan (05/29/2021 8:19 PM HARNESSMAKER APPRENTICE): Bp is stable/in acceptable range for any co-morbidities. Encouraged to limit sodium intake and exercise for weight control. Continue Lasix is helping with the swelling and addition. Blood pressure stable Assessment & Plan (05/24/2021 10:38 AM HARNESSMAKER APPRENTICE): Continue Lasix potassium Assessment & Plan (12/24/2020 9:05 AM CDT): Bp is stable/in acceptable range for any co-morbidities. Encouraged to limit sodium intake and exercise for weight control. Assessment & Plan (08/31/2020 9:32 AM HARNESSMAKER APPRENTICE): Bp is stable/in acceptable range for any co-morbidities. Encouraged to limit sodium intake and exercise for weight control. Stable with laxis currently Assessment & Plan (02/18/2020 9:44 PM CDT): Bp is stable/in acceptable range for any co-morbidities. Encouraged to limit sodium intake and exercise for weight control. Assessment & Plan (08/13/2019 8:57 AM HARNESSMAKER APPRENTICE): Bp is stable/in acceptable range for any [...] difficulty pulling them. Recommend finding some on [employer] that fit her calf that she can zip on and off. Showed them to her on [employer] and where to order them. She states she will try to get them. Assessment & Plan (05/31/2021 9:16 PM HARNESSMAKER APPRENTICE): Improving slowly. May have been due to the Relafen. She is on 60 of Lasix with potassium 10 mEq daily. Continue with current plan. Keep legs elevated. Utilize compressi to improve cleared. on hose. Call if symptoms worsen or do not continue to improve. Assessment & Plan (05/29/2021 8:23 PM HARNESSMAKER APPRENTICE): Persistent lower extremity edema that has improved [...] CMP. Assessment & Plan (05/24/2021 10:39 AM HARNESSMAKER APPRENTICE): Patient that her swelling was improving since discharge for over the last day or so it seems to be increasing. Will increase the Lasix to 40mg Start K 10meq daily Recheck labs in 5 days Assessment & Plan (08/31/2020 9:33 AM HARNESSMAKER APPRENTICE): Continue lasix Palpitations 12/08/2015 12/30/2020 Overview (10/09/2016): Palpitations Other abnormal glucose 11/11/201508/31 Asthma 10/14/2015 12/24/2020 Assessment & Plan (08/13/2019 8:49 AM HARNESSMAKER APPRENTICE): Continue with current regimen and with Pulmonary Assessment & Plan (11/01/2018 10:53 PM CDT): Currently Stable with regimen. Monitor closely with current allergy season. Followup Dr. Gomez as directed. Menopause 10/14/2015 12/30/2020 Cervical pain (neck) 10/14/2015 023 Immunizations Immunization Administration Dates Next Due COVID-19 mRNA (Pay with a Tweet) 0.3 m L (30 mcg) vaccine (12 [...] = 0.6 oz pur e alcohol) [facility] Utilities Answer Date Recorded In the [...] often do you attend chur ch or yazidism services? 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 Female 8:04 PM HARNESSMAKER APPRENTICE Gender Identity Female 02/15/2020 6:08 PM CDT [...] on file Medical Devices Implanted Type Area Data Solutions Architect Device Identifier Shelf Expiration Date Model / Serial / Lot [employer] Simplex P Radiopaque Full Dose Cement Bone Sterile 6191-1-010 - [id number] Implanted:Qty: 2 on 05/04/2023 by Michael Motta MD at [facility] Bone Cement Left: Knee [employer] 05/03/2025 6191-1-010 / 6191-1-001 / [id number] [employer] Simplex P Radiopaque Full Dose Cement Bone Sterile 6191-1-010 - [id number] Implanted:Qty: 2 on 05/30/2024 by Michael Motta MD at [facility] Bone Cement Right: Patella [employer] [id number] 05/03/2026 6191-1-010 / / [id number] [employer] Persona 14mm 30+ Mm Knee Tibia Taper Extension Stem [id number] - [id number] 4 - [id number] Implanted:Qty: 1 on 05/04/2023 by Michael Motta MD at [facility] Left: Knee [employer] [id number] 02/15/2033 [id number] / 09-1914-414- 14 / [id number] [employer] Persona Cemented Cruciate Retaining Knee Left 7 Narrow Component [id number] - [id number] 1 - [id number] Implanted:Qty: 1 on 05/04/2023 by Michael Motta MD at [facility] Left: Knee [employer] [id number] 10/25/2032 [id number] / 64-9730-171- 01 / [id number] [employer] Baseplate Tibial Knee Cemented Left Fixed Stemmed Persona Size D Tivanium [id number] - R33-7506-539-9 1 - [id number] Implanted:Qty: 1 on 05/04/2023 by Michael Motta MD at [facility] Left: Knee [employer] [id number] 09/11/2032 [id number] / 60-0635-093- 01 / [id number] [employer] Persona 11mm Knee Left 6-7 C-D Insert Articular Vivacit-E Sterile [id number] - [id number] 1 - [id number] Implanted:Qty: 1 on 05/04/2023 by Michael Motta MD at [facility] Left: Knee [employer] [id number] 12/28/2025 [id number] / 86-2260-180- 11 / [id number] [employer] Persona 32mm Knee Component Patellar All Poly Latex Free 75-7584-009-32 - [id number] Implanted:Qty: 1 on 05/04/2023 by Michael Motta MD at [facility] [employer] 12/19/2027 [id number] / / [id number] [employer] Baseplate Tibial Knee Cemented Right Fixed Stemmed Persona Size C Tivanium [id number] - [id number] Implanted:Qty: 1 on 05/30/2024 by Michael Motta MD at [facility] Right: Knee [employer] [id number] 03/22/2033 [id number] / / [id number] [employer] Persona 29mm Knee Component Patellar All Poly Latex Free [id number] - [id number] Implanted:Qty: 1 on 05/30/2024 by Michael Motta MD at [facility] Right: Knee [employer] [id number] 12/18/2028 [id number] / / [id number] [employer] Persona 13mm Cruciate Retain Knee Right 6-7 Cd Insert Articular Latex Free [id number] - [id number] Implanted:Qty: 1 on 05/30/2024 by Michael Motta MD at [facility] Right: Patella [employer] [id number] 05/04/2025 [id number] / / [id number] [employer] Persona Cruciate Retaining Cemented Knee Right 7 Narrow Component [id number] - [id number] Implanted:Qty: 1 on 05/30/2024 by Michael Motta MD at [facility] Right: Knee [employer] [id number] 12/27/2033 [id number] / / [id number] [employer] Persona 14mm 30+ Mm Knee Tibia Taper Extension Stem [id number] - [id number] Implanted:Qty: 1 on 05/30/2024 by Michael Motta MD at [facility] Right: Knee [employer] [id number] 04/11/2034 [id number] / / [id number] Procedures Procedure Name Priority Date/Time Associated Diagnosis [...] HEPATITIS C ANTIBODY Routine 06/04/2020 10:29 AM HARNESSMAKER APPRENTICE Encounter for screening for other viral diseases [...] LAB URINE ORDERABLES Final Result [facility] [address] [place] [address] * SCAN - LABS (11/22/2024 3:36 PM [...] LAB BLOOD ORDERABLES Final Result [facility] [address] [place] [address] * (ABNORMAL) CBC with auto differential (11/22/2024 [...] BLOOD ORDERABLES Final Result Performing Organization Address [facility]/ZIP Co de Phone Number [facility] [address] [place] [address] * Ferritin (11/22/2024 9:03 AM CDT) Ferritin 182 16 - 288 ng/mL [facility] Blood 11/22/2024 9:03 AM CDT 11/22/2024 9:03 AM CDT Alee OSMAN LAB BLOOD ORDERABLES Final Result Performing Organization Address [facility] Co de Phone Number [facility] [address] [place] [address] * Vitamin B12 (11/22/2024 9:03 AM CDT) Vitamin B12 755 200 - 1,100 pg/mL [facility] 11/22/2024 9:03 AM CDT 11/22/2024 9:03 AM CDT Alee OSMAN LAB BLOOD ORDERABLES Final Result Performing Organization Address [facility] Co de Phone Number [facility] [address] [place] [address] * CBC with auto differential (11/21/2024 4:04 PM CDT) Blood Sangita OSMAN LAB BLOOD ORDERABLES Edit ed Result - Final [facility] * Differential, auto (11/21/2024 1:29 PM CDT) Neutrophil abs 2.74 1.50 - 6.50 K/cumm Imm gran abs 0.02 0.00 - 0.10 K/cumm [facility] Lymphocyte abs 0.99 0.80 - 3.30 K/cumm [facility] Monocyte abs 0.43 0.20 - 0.80 K/cumm [facility] Eosinophil abs 0.12 0.00 - 0.50 K/cumm [facility] Basophil abs 0.04 0.00 - 0.10 K/cumm [facility] Neutrophil pct 63.1 % [facility] Comment: Interpretive Data Percent cell count reference ranges are not reported, since discordance with absolute values may lead to misinterpretation of CBC data. Current Interpretive Data was last revised on 2017. Imm gran pct 0.5 % [facility] Comment: Interpretive Data Percent cell count reference ranges are not reported, since discordance with absolute values may lead to misinterpretation of CBC data. Current Interpretive Data was last revised on 2017. Lymphocyte pct 22.8 % [facility] Comment: Interpretive Data Percent cell count reference ranges are not reported, since discordance with absolute values may lead to misinterpretation of CBC data. Current Interpretive Data was last revised on 2017. Monocyte pct 9.9 % [facility] Comment: Interpretive Data Percent cell count reference ranges are not reported, since discordance with absolute values may lead to misinterpretation of CBC data. Current Interpretive Data was last revised on 2017. Eosinophil pct 2.8 % [facility] Comment: Interpretive Data Percent cell count reference ranges are not reported, since discordance with absolute values may lead to misinterpretation of CBC data. Current Interpretive Data was last revised on 2017. Basophil pct 0.9 % [facility] Comment: Interpretive Data Percent cell count reference ranges are not reported, since discordance with absolute values may lead to misinterpretation of CBC data. Current Interpretive Data was last revised on 2017. Blood 11/21/2024 1:29 PM CDT 11/21/2024 3:07 PM CDT Sangita OSMAN LAB BLOOD ORDERABLES Vy l Result Performing Organization Address [facility] Co de Phone Number [address] [place] [address] * (ABNORMAL) CBC with auto differential (11/21/2024 1:29 PM CDT) [facility] WBC 4.34 3.80 - 9.90 K/cumm Hgb 11.1(L) 11.9 - 15.5 g/dL [facility] Hct 34.5(L) 35.6 - 45.5 % [facility] Plt 218 150 - 400 K/cumm [facility] MPV 10.7 9.1 - 12.3 fL [facility] RBC 3.37(L) 3.90 - 5.20 M/cumm [facility] MCV 102.4(H) 81.3 - 96.4 fL [facility] MCH 32.9 27.1 - 33.3 pg [facility] MCHC 32.2(L) 32.3 - 35.7 g/dL [facility] RDW CV 16.2(H) 11.1 - 14.9 % [facility] RDW SD 58.6(H) 35.7 - 48.1 fL [facility] NRBC abs 0.00 0.00 - 0.01 K/cumm [facility] Blood 11/21/2024 1:29 PM CDT 11/21/2024 3:07 PM CDT Sangita OSMAN LAB BLOOD ORDERABLES Vy l Result Performing Organization Address [facility]/ZIP Co de Phone Number [address] [place] [address] * (ABNORMAL) eGFR (11/12/2024 8:36 AM CDT) [facility] eGFR 58(L) >=60 mL/min/1. 73 m2 Comment: [...] ORDERABLES Final Res ult Performing Organization Address City/[facility]/ZIP Co de Phone Number [address] [place] [address] * Vitamin D 25 hydroxy (11/12/2024 8:36 AM CDT) Vitamin D 25-OH 47.0 30.0 - 80.0 ng/mL Blood 11/12/2024 8:36 AM CDT 11/12/2024 9:04 AM CDT Abisai Martinez MD LAB BLOOD ORDERABLES Final Res ult [address] [place] [address] * Protein electrophoresis with reflex, serum with interpretation (11/12/2024 8:36 AM CDT) Protein, sr 6.4 6.2 - 8.2 g/dL Comment:Testing performed by : [facility], [address] [place]., [address] Albumin 3.6 3.2 - 5.0 g/dL VIANCA BOYLE Comment:Testing performed by : [facility], [address] [facility], [address] Alpha-1 globulin 0.4 0.2 - 0.4 g/dL VIANCA BOYLE Comment:Testing performed by : [facility], [address] [facility], [address] Alpha-2 globulin 0.7 0.5 - 1.0 g/dL VIANCA BOYLE Comment:Testing performed by : [facility], [address] [facility], [address] Beta-1 globulin 0.4 0.3 - 0.6 g/dL VIANCA Comment:Testing performed by : [facility], [address] [facility], [address] Beta-2 globulin 0.4 0.2 - 0.6 g/dL VIANCA Comment:Testing performed by : [facility], [address] [facility], [address] Gamma globulin 0.9 0.5 - 1.7 g/dL VIANCA Comment:Testing performed by : [facility], [address] [place] [address], [address] SPEP interp Please see comment VIANCA Comment: No apparent monoclonal peak Reviewed and signed by Raad Farrar MD, PhD 11/13/2024 Testing performed by: [facility], [address] [place] [address], [id number] Blood 11/12/2024 8:36 AM CDT 11/12/2024 11:11 AM CDT us Abisai Martinez MD LAB BLOOD ORDERABLES Final Res ult VIANCA [address] [facility] [place] [address] * Phosphorus (11/12/2024 8:36 AM CDT) [facility] Phosphorus, pl 3.1 2.3 - 4.5 mg/dL Blood 11/12/2024 8:36 AM CDT 11/12/2024 9:04 AM CDT Abisai Martinez MD LAB BLOOD ORDERABLES Final Res ult Performing Organization Address [facility] de Phone Number [address] [place] [address] * (ABNORMAL) PTH (11/12/2024 8:36 AM CDT) [facility] PTH 132(H) 15 - 65 pg/mL Blood 11/12/2024 8:36 AM CDT 11/12/2024 9:04 AM CDT Abisai Martinez MD LAB BLOOD ORDERABLES Final Res ult Performing Organization Address [facility] de Phone Number [address] [place] [address] * (ABNORMAL) Comprehensive metabolic panel (11/12/2024 8:36 AM CDT) [facility] Sodium 139 135 - 145 mmol/L Potassium, pl 4.0 3.3 - 4.9 mmol/L [facility] Chloride 108 97 - 110 mmol/L [facility] CO2 21(L) 22 - 32 mmol/L [facility] Anion gap 10 2 - 15 mmol/L [facility] BUN 22 6 - 25 mg/dL [facility] Creatinine 1.05 0.60 - 1.10 mg/dL [facility] Glucose 101 70 - 199 mg/dL [facility] Comment: Interpretive Data Fasting glucose >/= [...] 2022. Calcium 9.0 8.5 - 10.3 mg/dL [facility] Bilirubin, total 0.3 0.1 - 1.2 mg/dL [facility] Protein, pl 6.9 6.5 - 8.5 g/dL [facility] Albumin 3.8 3.5 - 5.0 g/dL [facility] Alk phos 135(H) 40 - 130 Units/L [facility] ALT 30 7 - 45 Units/L [facility] AST 41 10 - 45 Units/L [facility] Blood 11/12/2024 8:36 AM CDT 11/12/2024 9:04 AM CDT us Abisai Martinez MD LAB BLOOD ORDERABLES Final Res ult Performing Organization Address [facility] Co de Phone Number [address] [place] [address] * Hemoglobin A1c (11/12/2024 8:18 AM CDT) [facility] Signature Hgb A1C 5.6 4.0 - 5.6 % Estimated Average Glucose 114 mg/dL [facility] Comment: The ADA recommends reporting an estimated Average Glucose (eAG) with all Hemoglobin A1c results using the equation derived from a study of 507 normal and diabetic adults. Minority populations were underrepresented and children were not included. (Diabetes Care 31:8088-1772, 2008). The eAG is not equivalent to a fasting glucose. Blood 11/12/2024 8:18 AM CDT 11/12/2024 9:05 AM CDT us Alee OSMAN LAB BLOOD ORDERABLES Final Result Performing Organization Address City/[facility]/ZIP Co de Phone Number [address] [place] [address] * XR Spine Lumbar 2 or 3 [...] Bone mineral density was performed on a [employer] Discovery Densitometer. Based on machine cross-calibration and [...] by the International Society of Clinical Densitometry. [id number] Abisai Martinez MD IMG DXA PROCEDURES Final [...] A/B, COVID-19 antigen (10/23/2024 1:14 PM CDT) [facility] Influenza A Ag, POC Negative Negative [facility] Influenza B Ag, POC Negative Negative [facility] COVID-19 Ag POC Presumptive Negative Presumptive Negative, Invalid [facility] Nasal 10/23/2024 1:14 PM CDT Alee OSMAN POINT OF CARE TEST ORDERAB LES Final Result [facility] [address] [facility] [address] [place] [address] * SCAN - LABS (10/13/2024) Provider Scanning [...] Ag POC Presumptive Negative Presumptive Negative, Invalid [facility] Nasal 09/25/2024 11:0 2 AM CDT Jessica Collins NP POINT OF CARE TEST ORDERABLES Final Result Performing Organization Address City/State/[facility] Co de Phone Number [facility] [address] [place] [address] * XR Knee Right 3 Views (09/13/2024 [...] 09/18/2024 10:14 AM - Electronically signed by Jhon Sparrow M.D. RB T: Report ID: [id number] Reading Location: [id number] Procedure Note John Sparrow MD - 09/18/2024 [...] John Sparrow M.D. RB T: Report ID: [id number] Reading Location: [id number] Michael Motta MD IMG XR PROCEDURES Final Re sult * Colonoscopy (07/27/2021) Anatomical Region Laterality Modality Other Historical Provider ENDOSCOPY PROCEDURES Vy l Result * Hepatitis C antibody (06/04/2020 10:29 AM HARNESSMAKER APPRENTICE) Hep C Ab NON-REACTI VE NON-REACT ALEXYS [facility] SIGNAL TO CUT-OFF 0.02 <1.00 [facility] Comment: HCV antibody was non-reactive. There is no laboratory evidence of HCV infection. In most cases, no further action is required. However, if recent HCV exposure is suspected, a test for HCV RNA (test code 50716) is suggested. For additional information please refer to http://education.SmartMove/faq/OTC42n7 (This link is being provided for informational/ educational purposes only.) Blood specimen (specimen) 06/04/2020 10:29 AM HARNESSMAKER APPRENTICE 06/04/2020 10:30 AM HARNESSMAKER APPRENTICE Sangita OSMAN LAB MICROBIOLOGY - GENERA L ORDERABLES Final Result [facility] [address] [place] [address] from Last 3 Months or Most Recently Relevant to Health Maintenance Insurance [facility] MEDIC[facility] Address: [facility] [address] [place] [address] [facility] MEDIC[facility] Address: [address] [address] [place] [address] [facility] Address: [address] [address] [place] [address] Advance Directives For more information, please contact: [phone] Documents on File Type Date Recorded Patient Road Freight Brake Coupler Expl anation ADVANCE DIRECTIVE 05/17/2024 2:13 PM Yonis r of Passenger Service Agent-Medical * Full Code (Latest Code Status on File) Date Activated Date Inactivated Comments 05/30/2024 12:38 PM 06/05/2024 6:31 PM * Full Code Date Activated Date Inactivated Comments 05/04/2023 2:33 PM 05/07/2023 3:07 AM * Full Code Date Activated Date Inactivated Comments 03/22/2021 4:39 PM 03/25/2021 6:17 PM Care Teams Customer Service And Sales Consultant Relationship Specialty Start Date End Date Alee Elizondo PA [address] [place], [place] [id number] PCP - General Internal Medicine 07/05/23 Sharan Linton MD Referring Physician Gastroenterology 10/31/18 Martha Starks MD Consulting Physician Cardiology 12/24/20 Shama Hines MD [address] [facility] [place], [address] [address] Consulting Physician Pain Management 01/19/21 Artis Grewal MD [address] [place] [address] Consulting Physician Rheumatology 01/30/21 Amy Mayes NP [address] [address] Nurse Practitioner Cardiovascular Disease 04/20/24 Shailesh Dunn MD [address] [address] Consulting Physician Pulmonary Disease 04/20/24 Sangita Farrar PA [address] [place] [address] Physician Medical Orderly Rheumatology 05/15/24
--- OUTSIDE RECORDS SUMMARY | 2024-12-01 12:55 | XMS_ITS | Encounter Summary ---
Author Organization [facility] Healthcare Address [address] [place] [address] Care Team Providers Care Color Blender Name Role Phone Sharan Linton MD Unavailable [phone] Martha Starks MD Unavailable [phone] Shama Hines MD Unavailable Artis Grewal MD Unavailable [phone] Alee Elizondo Primary Care Provider [phone] Amy Mayes NP Unavailable [phone] Shailesh Dunn MD Unavailable [phone] Sangita Farrar Unavailable [phone] Encounter Details Date Type Department Care Team (Late st Contact Info) Description 10/13/2024 Orders Only [facility] Management [address] [place] [address] Scanning, Provider Social History Tobacco Use Types Packs/Day Years Used Date Smoking Tobacco: Never Smokeless Tobacco: Never Comments:Never used Alcohol Use Standard Drinks/Week Comments No 0 (1 standard drink = 0.6 oz pur e alcohol) [facility] Utilities Answer Date Recorded In the past [...] any clubs o r organizations such as oriental orthodox groups, unions, fraternal or athletic groups, [...] any time in the past 12 m [facility], were you homeless or living in a [...] file Legal Sex Female 8:04 PM 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 Gender Identity Female 02/15/2020 6:08 [...] documented as of this encounter Care Teams Color Blender Relationship Specialty Start Date End Date Alee Elizondo PA [address] [facility] [address] [place] [address] PCP - General Internal Medicine 07/05/23 Sharan Linton MD Referring Physician Gastroenterology 10/31/18 Martha Starks MD Consulting Physician Cardiology 12/24/20 Shama Hines MD [address] [facility] [address] Consulting Physician Pain Management 01/19/21 Artis Grewal MD [address] [place] [address] Consulting Physician Rheumatology 01/30/21 Amy Mayes NP [address] [address] Nurse Practitioner Cardiovascular Disease 04/20/24 Shailesh Dunn MD [address] [facility] [address] [address] Consulting Physician Pulmonary Disease 04/20/24 Sangita Farrar PA [address] [place] [address] Physician All Source Collection Manager Rheumatology 05/15/24 documented as of this encounter
--- OUTSIDE RECORDS SUMMARY | 2024-12-01 12:55 | XMS_ITS | Encounter Summary ---
Author Organization [facility] Healthcare Address [address] [place] [address] Care Team Providers Care Foreign Banknote Teller Name Role Phone Sharan Linton MD Unavailable [phone] Martha Starks MD Unavailable [phone] Shama Hines MD Unavailable Artis Grewal MD Unavailable [phone] Alee Elizondo Primary Care Provider [phone] Amy Mayes NP Unavailable +[phone] Shailesh Dunn MD Unavailable [phone] Sangita Farrar Unavailable +[phone] Encounter Details Date Type Department Care Team (Late st Contact Info) Description 03/02/2024 Telephone [facility] Medical Group Family Medicine [address] [place] [address] Alee Elizondo PA [address] [place] [address] Social History Tobacco Use Types Packs/Day Years Used Date Smoking Tobacco: Never Smokeless Tobacco: Never Comments:Never used Alcohol Use Standard Drinks/Week Comments No 0 (1 standard drink = 0.6 oz pur e alcohol) [facility] Utilities Answer Date Recorded In the past 12 months has [employer], gas, oil, or water company threatened to [...] on file Legal Sex Female 8:04 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 Gender Identity Female 02/15/2020 6:08 PM CDT [...] documented as of this encounter Care Teams Foreign Banknote Teller Relationship Specialty Start Date End Date Alee Elizondo PA [address] [place] [address] PCP - General Internal Medicine 07/05/23 Sharan Linton MD Referring Physician Gastroenterology 10/31/18 Martha Starks MD Consulting Physician Cardiology 12/24/20 Shama Hines MD [address] [facility], [facility] [address] [place] [address] Consulting Physician Pain Management 01/19/21 Artis Grewal MD [address] [place] [address] Consulting Physician Rheumatology 01/30/21 Amy Mayes NP [address] [address] Nurse Practitioner Cardiovascular Disease 04/20/24 Shailesh Dunn MD [address] [facility] [address] [address] Consulting Physician Pulmonary Disease 04/20/24 Sangita Farrar PA [address] [place] [address] Physician Family Day Care Worker Rheumatology 05/15/24 documented as of this encounter
--- OUTSIDE RECORDS SUMMARY | 2024-12-01 12:55 | XMS_ITS | Encounter Summary ---
Author Organization [facility] Facility Care Team Providers Care Tube Teller Name Role Phone Alee Elizondo Primary Care Provider + [phone] Sharan Linton MD Unavailable Taisha Gomez MD Unavailable +[phone] Parag Soto MD Unavailable [phone] RaziaMartha singh MD Unavailable [phone] Puneet Uribe MD Unavailable +[phone] Shama Hines MD Unavailable Artis Grewal MD Unavailable [phone] Harrison Pena RN Unavailable +[phone] Nafisa Gregg RN Unavailable +[phone] Tho Kelsey MD Primary Care Provider [phone] Alee Elizondo Primary Care Provider + [phone] Amy Mayes NP Unavailable +[phone] Shailesh Dunn MD Unavailable +[phone] Sangita Farrar Unavailable +[phone] Encounter Details Date Type Department Care Team (Latest Contact Info) Description 08/10/2017 Orders Only [facility] CLINCONV Provider, MD Tania [address] [place] [address] Social History Tobacco Use Types Packs/Day Years Used Date Smoking Tobacco: Never Smokeless Tobacco: Never Alcohol Use Standard Drinks/Week Comments No 0 (1 standard drink = 0.6 oz pur e alcohol) Comments Unknown Sex and Gender Information Value Date Recorded Sex Assigned at Not on file Legal Sex Female 8:04 PM PRESSURE DISPATCHER Gender Identity Female 02/15/2020 6:08 PM CDT Sexual Orientation Not on file documented as of this encounter Plan of Treatment Not on file documented as of this encounter Procedures Procedure Name Priority Date/Time Associated Diagnosis Comments CARDIOLOGY REPORT 08/10/2017 12: 00 AM PRESSURE DISPATCHER documented in this encounter Results * CARDIOLOGY REPORT (08/10/2017 12:00 AM PRESSURE DISPATCHER) Anatomical Region Laterality Modality Other Narrative 08/10/2017 12:00 AM PRESSURE DISPATCHER Ordered by an unspecified provider. Historical Provider [facility] LEANDRA LANDRUM Final Result documented in this encounter Visit Diagnoses Not on filedocumented in this encounter Additional Health Concerns Infection Onset Date Last Indicated Resolved Time COVID: Suspected 08/13/2021 08/14/2021 08/14/2021 3:06 AM PRESSURE DISPATCHER COVID: Suspected 08/14/2021 08/14/2021 08/15/2021 3:05 AM PRESSURE DISPATCHER COVID: Suspected 08/14/2021 08/14/2021 08/15/2021 6:25 AM PRESSURE DISPATCHER COVID: Suspected 06/02/2023 06/02/2023 06/02/2023 7:25 PM PRESSURE DISPATCHER COVID: Suspected 07/26/2023 07/26/2023 07/26/2023 3:10 PM PRESSURE DISPATCHER COVID: Suspected 09/25/2024 09/25/2024 09/25/2024 11:03 AM CDT Influenza, adult 09/25/2024 09/25/2024 10/02/2024 3:05 AM CDT COVID: Suspected 10/23/2024 10/23/2024 10/23/2024 1:15 PM CDT documented as of this encounter Care Teams Tube Teller Relationship Specialty Start Date End Date Alee Elizondo PA [address] [place] [address] PCP - General Internal Medicine 02/01/17 06/29/23 Tho Kelsey MD [address] [place] [address] [address] [place] [address] PCP - General Family Medicine 06/30/23 07/04/23 Alee Elizondo PA [address] [place] [address] PCP - General Internal Medicine 07/05/23 Sharan Linton MD [address] [place] [address] Referring Physician Gastroenterology 10/31/18 Taisha Gomez MD [address] [place] [address] Referring Physician Pulmonary Disease 10/31/18 12/23/20 Parag Soto MD [address] [place] [address] Referring Physician Rheumatology 10/31/18 12/23/20 Martha Starks MD [address] [place] [address] Consulting Physician Cardiology 12/24/20 Puneet Uribe MD [address] [facility] [address] [place] [address] Consulting Physician Rheumatology 12/24/20 01/29/21 Shama Hines MD [address] [facility] [address] Consulting Physician Pain Management 01/19/21 Artis Grewal MD [address] [place] [address] Consulting Physician Rheumatology 01/30/21 Harrison Pena RN [address] [place] [address] Chief Clinical Officer 05/30/23 09/04/23 Nafisa Gregg RN [address] [place] [address] Chief Clinical Officer 06/06/23 06/12/23 Amy Mayes NP [address] [address] Nurse Practitioner Cardiovascular Disease 04/20/24 Shailesh Dunn MD [address] [address] Consulting Physician Pulmonary Disease 04/20/24 Sangita Farrar PA [address] [place] [address] Physician [employer] Flatbed Truck Driver Rheumatology 05/15/24 documented as of this encounter
--- OUTSIDE RECORDS SUMMARY | 2024-12-01 12:55 | XMS_ITS | Encounter Summary ---
Author Organization [facility] Facility Care Team Providers Care Water System Operator Name Role Phone Alee Elizondo Primary Care Provider + [phone] Sharan Linton MD Unavailable [phone] Taisha Gomez MD Unavailable [phone] Parag Soto MD Unavailable [phone] RaziaMartha singh MD Unavailable [phone] Puneet Uribe MD Unavailable [phone] Shama Hines MD Unavailable Artis Grewal MD Unavailable [phone] Harrison Pena RN Unavailable +[phone] Nafisa Gregg RN Unavailable Tho Kelsey MD Primary Care Provider [phone] Alee Elizondo Primary Care Provider + [phone] Amy Mayes NP Unavailable [phone] Shailesh Dunn MD Unavailable [phone] Sangita Farrar Unavailable +[phone] Encounter Details Date Type Department Care Team (Latest Contact Info) Description 06/28/2016 Orders Only [facility] CLINCONV Provider, MD Tania [address] [place] [address] Social History Tobacco Use Types Packs/Day Years Used Date Smoking Tobacco: Never Alcohol Use Standard Drinks/Week Comments No 0 (1 standard drink = 0.6 oz pur e alcohol) Comments Unknown Sex and Gender Information Value Date Recorded Sex Assigned at Not on file Legal Sex Female 8:04 PM SILO PAINTER Gender Identity Female 02/15/2020 6:08 PM CDT Sexual Orientation Not on file documented as of this encounter Plan of Treatment Not on file documented as of this encounter Procedures Procedure Name Priority Date/Time Associated Diagnosis Comments SCAN - LABS 06/29/2016 12:00 AM SILO PAINTER documented in this encounter Results * SCAN - LABS (06/29/2016 12:00 AM SILO PAINTER) Narrative 06/29/2016 12:00 AM SILO PAINTER Ordered by an unspecified provider. Historical Provider MD Final Res ult documented in this encounter Visit Diagnoses Not on filedocumented in this encounter Additional Health Concerns Infection Onset Date Last Indicated Resolved Time COVID: Suspected 08/13/2021 08/14/2021 08/14/2021 3:06 AM SILO PAINTER COVID: Suspected 08/14/2021 08/14/2021 08/15/2021 3:05 AM SILO PAINTER COVID: Suspected 08/14/2021 08/14/2021 08/15/2021 6:25 AM SILO PAINTER COVID: Suspected 06/02/2023 06/02/2023 06/02/2023 7:25 PM SILO PAINTER COVID: Suspected 07/26/2023 07/26/2023 07/26/2023 3:10 PM SILO PAINTER COVID: Suspected 09/25/2024 09/25/2024 09/25/2024 11:03 AM CDT Influenza, adult 09/25/2024 09/25/2024 10/02/2024 3:05 AM CDT COVID: Suspected 10/23/2024 10/23/2024 10/23/2024 1:15 PM CDT documented as of this encounter Care Teams Water System Operator Relationship Specialty Start Date End Date Alee Elizondo PA [address] [facility] [address] [place] [address] PCP - General Internal Medicine 02/01/17 06/29/23 Tho Kelsey MD [address] [place] [address] [address] [facility] 300 [place] [address] PCP - General Family Medicine 06/30/23 07/04/23 Alee Elizondo PA [address] [facility] [address] [place] [address] PCP - General Internal Medicine 07/05/23 Sharan Linton MD 10[address] [facility] 500 [place] [address] Referring Physician Gastroenterology 10/31/18 Taisha Gomez MD 10[address] [facility] 500 [place] [address] Referring Physician Pulmonary Disease 10/31/18 12/23/20 Parag Soto MD 10[address] [facility] [address] [place] [address] Referring Physician Rheumatology 10/31/18 12/23/20 Martha Starks MD 10[address] [facility] 500 [place] [address] Consulting Physician Cardiology 12/24/20 Puneet Uribe MD [address] [facility] 110 [place] [address] Consulting Physician Rheumatology 12/24/20 01/29/21 Shama Hines MD 47[address] [facility], [facility] [address] [place] [address] Consulting Physician Pain Management 01/19/21 Artis Grewal MD [address] [place] [address] Consulting Physician Rheumatology 01/30/21 Harrison Pena, JULIUS [address] [place] [address] Overhead Crane Technician 05/30/23 09/04/23 Nafisa Gregg, JULIUS [address] [place] [address] [facility] 300 [place] [address] Overhead Crane Technician 06/06/23 06/12/23 Amy Mayes NP [address] [facility] 102 [place] [address] Nurse Practitioner Cardiovascular Disease 04/20/24 Shailesh Dunn MD 4600 [facility] [address] [place] [address] Consulting Physician Pulmonary Disease 04/20/24 Sangita Farrar PA [address] [place] [address] Physician Tie Puller Rheumatology 05/15/24 documented as of this encounter
--- OUTSIDE RECORDS SUMMARY | 2024-12-01 12:55 | XMS_ITS | Encounter Summary ---
Author Organization [facility] Healthcare Address [address] [place] [address] Care Team Providers Care Supervisor Lending Activities Name Role Phone Sharan Linton MD Unavailable [phone] Martha Starks MD Unavailable [phone] Shama Hines MD Unavailable Artis Grewal MD Unavailable [phone] Alee Elizondo Primary Care Provider [phone] Amy Mayes NP Unavailable [phone] Shailesh Dunn MD Unavailable [phone] Sangita Farrar Unavailable [phone] Encounter Details Date Type Department Care Team (Late st Contact Info) Description 10/12/2024 Results Follow-Up [facility] Medical Group Family Medicine [address] [place] [address] Alee Elizondo PA [address] [place] [address] SCAN - LABS Social History Tobacco Use Types Packs/Day Years Used Date Smoking Tobacco: Never Smokeless Tobacco: Never Comments:Never used Alcohol Use Standard Drinks/Week Comments No 0 (1 standard drink = 0.6 oz pur e alcohol) [facility] Utilities Answer Date Recorded In the past 12 months has e [employer], gas, oil, or water company threatened to [...] any time in the past [facility] were you homeless or living in [...] on file Legal 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 Female 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 Gender Identity Female 02/15/2020 6:08 PM CDT [...] as of this encounter Care Teams Supervisor Lending Activities Relationship Specialty Start Date End Date Alee Elizondo PA [address] [facility] [address] [place] [address] PCP - General Internal Medicine 07/05/23 Sharan Linton MD Referring Physician Gastroenterology 10/31/18 Martha Starks MD Consulting Physician Cardiology 12/24/20 Shama Hines MD 4701 [facility] 230 [place] [address] Consulting Physician Pain Management 01/19/21 Artis Grewal MD [address] [place] [address] Consulting Physician Rheumatology 01/30/21 Amy Mayes NP [address] [facility] 102 [place] [address] Nurse Practitioner Cardiovascular Disease 04/20/24 Shailesh Dunn MD 4600 [facility] 200 [place] [address] Consulting Physician Pulmonary Disease 04/20/24 Sangita Farrar PA [address] [place] [address] Physician Community Artist Rheumatology 05/15/24 documented as of this encounter
--- OUTSIDE RECORDS SUMMARY | 2024-12-01 12:55 | XMS_ITS | Encounter Summary ---
Author Organization [facility] Healthcare Address [address] [place] [address] Care Team Providers Care Customer Supply Coordinator Name Role Phone Sharan Linton MD Unavailable [phone] Martha Starks MD Unavailable [phone] Shama Hines MD Unavailable Artis Grewal MD Unavailable [phone] Alee Elizondo Primary Care Provider [phone] Amy Mayes NP Unavailable [phone] Shailesh Dunn MD Unavailable [phone] Sangita Farrar Unavailable [phone] Encounter Details Date Type Department Care Team (Late st Contact Info) Description 10/04/2024 Results Follow-Up [facility] Medical Group Family Medicine [address] [place] [address] Alee Elizondo PA [address] [facility] [address] [facility] [address] [place] [address] Screening Mammogram Bilateral W Dyllan [...] often do you attend chur ch or episcopalian services? 1 to 4 times per year 05/30/2024 Do you belong to any clubs o r organizations such as muslim groups, unions, fraternal or athletic groups, or [...] any time in the past 12 m [facility], were you homeless or living in [...] on file Legal Sex Female 8:04 PM CREPE SOLE WIRE BRUSHER Gender Identity Female 02/15/2020 6:08 PM CDT [...] documented as of this encounter Care Teams Customer Supply Coordinator Relationship Specialty Start Date End Date Alee Elizondo PA [address] [facility] 500 [place] [address] PCP - General Internal Medicine 07/05/23 Sharan Linton MD Referring Physician Gastroenterology 10/31/18 Martha Starsk MD Consulting Physician Cardiology 12/24/20 Shama Hines MD 4700 [facility] 230 [place] [address] Consulting Physician Pain Management 01/19/21 Arits Grewal MD [address] [place] [address] Consulting Physician Rheumatology 01/30/21 Amy Mayes NP [address] [facility] [address] [facility] [address] [place] [address] Nurse Practitioner Cardiovascular Disease 04/20/24 Shailesh Dunn MD [address] [address] Consulting Physician Pulmonary Disease 04/20/24 Sangita Farrar PA [address] [place] [address] Physician Practice Advisor Rheumatology 05/15/24 documented as of this encounter
--- OUTSIDE RECORDS SUMMARY | 2024-12-01 12:55 | XMS_ITS | Encounter Summary ---
Author Organization [facility] Healthcare Address [address] [place] [address] Care Team Providers Care Green Hide Inspector Name Role Phone Sharan Linton MD Unavailable [phone] Martha Starks MD Unavailable [phone] Shama Hines MD Unavailable Artis Grewal MD Unavailable [phone] Alee Elizondo Primary Care Provider [phone] Amy Mayes NP Unavailable [phone] Shailesh Dunn MD Unavailable [phone] Sangita Farrar Unavailable [phone] Encounter Details Date Type Department Care Team (Late st Contact Info) Description 11/12/2024 Results Follow-Up [facility] Medical Group Family Medicine [address] [place] [address] Alee Elizondo PA [address] [facility] [address] [place] [address] Hemoglobin A1c Social History Tobacco Use Types Packs/Day Years Used Date Smoking Tobacco: Never Smokeless Tobacco: Never Comments:Never used Alcohol Use Standard Drinks/Week Comments No 0 (1 standard drink = 0.6 oz pur e alcohol) [facility] Utilities Answer Date Recorded In the past 12 months has [employer], gas, oil, or water company threatened to [...] on file Legal Sex Female 8:04 PM CLOTH BEAMER Gender Identity Female 02/15/2020 6:08 PM CDT Sexual Orientation Not on file documented as of this encounter Plan of Treatment Not on file documented as of this encounter Visit Diagnoses Not on filedocumented in this encounter Care Teams Green Hide Inspector Relationship Specialty Start Date End Date Alee Elizondo PA 10[address] [facility] 500 [place] [address] PCP - General Internal Medicine 07/05/23 Sharan Linton MD Referring Physician Gastroenterology 10/31/18 Martha Starks MD Consulting Physician Cardiology 12/24/20 Shama Hines MD 4700 [facility], [address] [address] Consulting Physician Pain Management 01/19/21 Artis Grewal MD [address] [place] [address] Consulting Physician Rheumatology 01/30/21 Amy Mayes NP [address] [address] Nurse Practitioner Cardiovascular Disease 04/20/24 Shailesh Dunn MD 46[address] [facility] [address] [address] Consulting Physician Pulmonary Disease 04/20/24 Sangita Farrar PA [address] [place] [address] Physician Supervisory Air Intercept Controller Rheumatology 05/15/24 documented as of this encounter
--- OUTSIDE RECORDS SUMMARY | 2024-12-01 12:55 | XMS_ITS | Encounter Summary ---
Author Organization [facility] Facility Care Team Providers Care Network Technician Name Role Phone Alee Elizondo Primary Care Provider + [phone] Sharan Linton MD Unavailable [phone] Taisha Gomez MD Unavailable [phone] Parag Soto MD Unavailable [phone] [facility] Mexico[facility]artha singh MD Unavailable [phone] Puneet Uribe MD Unavailable +[phone] Shama Hines MD Unavailable Artis Grewal MD Unavailable [phone] Harrison Pena RN Unavailable [phone] Nafisa Gregg RN Unavailable [phone] Tho Kelsey MD Primary Care Provider [phone] Alee Elizondo Primary Care Provider + [phone] Amy Mayes NP Unavailable [phone] Shailesh Dunn MD Unavailable [phone] Sangita Farrar Unavailable +[phone] Encounter Details Date Type Department Care Team (Latest Contact Info) Description 09/14/2016 Orders Only [facility] CLINCONV Provider, MD Tania [address] [place] [address] Social History Tobacco Use Types Packs/Day Years Used Date Smoking Tobacco: Never Alcohol Use Standard Drinks/Week Comments No 0 (1 standard drink = 0.6 oz pur e alcohol) Comments Unknown Sex and Gender Information Value Date Recorded Sex Assigned at Not on file Legal Sex Female 8:04 PM SOLAR THERMAL TECHNICIAN Gender Identity Female 02/15/2020 6:08 PM CDT Sexual Orientation Not on file documented as of this encounter Plan of Treatment Not on file documented as of this encounter Procedures Procedure Name Priority Date/Time Associated Diagnosis Comments PROCEDURE - RESULT 09/09/2016 12 :00 AM SOLAR THERMAL TECHNICIAN documented in this encounter Results * PROCEDURE - RESULT (09/09/2016 12:00 AM SOLAR THERMAL TECHNICIAN) Narrative 09/09/2016 12:00 AM SOLAR THERMAL TECHNICIAN Ordered by an unspecified provider. Historical Provider MD Final Res ult documented in this encounter Visit Diagnoses Not on filedocumented in this encounter Additional Health Concerns Infection Onset Date Last Indicated Resolved Time COVID: Suspected 08/13/2021 08/14/2021 08/14/2021 3:06 AM SOLAR THERMAL TECHNICIAN COVID: Suspected 08/14/2021 08/14/2021 08/15/2021 3:05 AM SOLAR THERMAL TECHNICIAN COVID: Suspected 08/14/2021 08/14/2021 08/15/2021 6:25 AM SOLAR THERMAL TECHNICIAN COVID: Suspected 06/02/2023 06/02/2023 06/02/2023 7:25 PM SOLAR THERMAL TECHNICIAN COVID: Suspected 07/26/2023 07/26/2023 07/26/2023 3:10 PM SOLAR THERMAL TECHNICIAN COVID: Suspected 09/25/2024 09/25/2024 09/25/2024 11:03 AM CDT Influenza, adult 09/25/2024 09/25/2024 10/02/2024 3:05 AM CDT COVID: Suspected 10/23/2024 10/23/2024 10/23/2024 1:15 PM CDT documented as of this encounter Care Teams Network Technician Relationship Specialty Start Date End Date Alee Elizondo PA 1095 [facility] 500 [place] [address] PCP - General Internal Medicine 02/01/17 06/29/23 Tho Kelsey MD [address] [place] [address] [address] [facility] 300 [place] [address] PCP - General Family Medicine 06/30/23 07/04/23 Alee Elizondo PA [address] [facility] 500 [place] [address] PCP - General Internal Medicine 07/05/23 Sharan Linton MD 1095 [facility] 500 [place] [address] Referring Physician Gastroenterology 10/31/18 Taisha Gomez MD 1095 [facility] 500 [place] [address] Referring Physician Pulmonary Disease 10/31/18 12/23/20 Parag Soto MD 1095 [facility] 500 [place] [address] Referring Physician Rheumatology 10/31/18 12/23/20 Martha Starks MD 1095 [facility] 500 [place] [address] Consulting Physician Cardiology 12/24/20 Puneet Uribe MD [address] [facility] 110 [place] [address] Consulting Physician Rheumatology 12/24/20 01/29/21 Shama Hines MD 4700 [facility], [facility] [address] [place] [address] Consulting Physician Pain Management 01/19/21 Artis Grewal MD [address] [place] [address] Consulting Physician Rheumatology 01/30/21 Harrison Pena, JULIUS [address] [place] [address] Patient Coordinator 05/30/23 09/04/23 Nafisa Gregg, JULIUS [address] [place] [address] [facility] 300 [place] [address] Patient Coordinator 06/06/23 06/12/23 Amy Mayes NP [address] [facility] 102 [place] [address] Nurse Practitioner Cardiovascular Disease 04/20/24 Shailesh Dunn MD 4600 [facility] 200 [place] [address] Consulting Physician Pulmonary Disease 04/20/24 Sangita Farrar PA [address] [place] [address] Physician Skating Rink Manager Rheumatology 05/15/24 documented as of this encounter
--- OUTSIDE RECORDS SUMMARY | 2024-12-01 12:55 | XMS_ITS | Encounter Summary ---
Author Organization [facility] Facility Care Team Providers Care Senior Linux Administrator Name Role Phone Alee Elizondo Primary Care Provider + [phone] Sharan Linton MD Unavailable Taisha Gomez MD Unavailable [phone] Parag Soto MD Unavailable RaziaMartha singh MD Unavailable [phone] Puneet Uribe MD Unavailable [phone] Shama Hines MD Unavailable Artis Grewal MD Unavailable [phone] Harrison Pena RN Unavailable [phone] Nafisa Gregg RN Unavailable [phone] Tho Kelsey MD Primary Care Provider [phone] Alee Elizondo Primary Care Provider + [phone] Amy Mayes NP Unavailable [phone] Shailesh Dunn MD Unavailable [phone] Sangita Farrar Unavailable [phone] Encounter Details Date Type Department Care Team (Latest Contact Info) Description 10/15/2016 Orders Only [facility] CLINCONV Provider, MD Tania [address] [place] [id number] Social History Tobacco Use Types Packs/Day Years Used Date Smoking Tobacco: Never Alcohol Use Standard Drinks/Week Comments No 0 (1 standard drink = 0.6 oz pur e alcohol) Comments Unknown Sex and Gender Information Value Date Recorded Sex Assigned at Not on file Legal Sex Female 8:04 PM HEALTH CARE MANAGER Gender Identity Female 02/15/2020 6:08 [...] COVID: Suspected 08/13/2021 08/14/2021 08/14/2021 3:06 AM HEALTH CARE MANAGER COVID: Suspected 08/14/2021 08/14/2021 08/15/2021 3:05 AM HEALTH CARE MANAGER COVID: Suspected 08/14/2021 08/14/2021 08/15/2021 6:25 AM HEALTH CARE MANAGER COVID: Suspected 06/02/2023 06/02/2023 06/02/2023 7:25 PM HEALTH CARE MANAGER COVID: Suspected 07/26/2023 07/26/2023 07/26/2023 3:10 PM HEALTH CARE MANAGER COVID: Suspected 09/25/2024 09/25/2024 09/25/2024 11:03 AM CDT Influenza, adult 09/25/2024 09/25/2024 10/02/2024 3:05 AM CDT COVID: Suspected 10/23/2024 10/23/2024 10/23/2024 1:15 PM CDT documented as of this encounter Care Teams Senior Linux Administrator Relationship Specialty Start Date End Date Alee Elizondo PA [address] [facility] [address] [place] [address] PCP - General Internal Medicine 02/01/17 06/29/23 Tho Kelsey MD [address] [place] [address] [address] [facility] [address] [place] [address] PCP - General Family Medicine 06/30/23 07/04/23 Alee Elizondo PA [address] [facility] [address] [facility] [address] [place] [address] PCP - General Internal Medicine 07/05/23 Sharan Linton MD [address] [facility] [address] [place] [address] Referring Physician Gastroenterology 10/31/18 Taisha Gomez MD [address] [facility] [address] [place] [address] Referring Physician Pulmonary Disease 10/31/18 12/23/20 Parag Soto MD [address] [facility] [address] [place] [address] Referring Physician Rheumatology 10/31/18 12/23/20 Martha Starks MD [address] [facility] [address] [place] [address] Consulting Physician Cardiology 12/24/20 Puneet Uribe MD [address] [facility] [address] [place] [address] Consulting Physician Rheumatology 12/24/20 01/29/21 Shama Hines MD [address] [facility], [facility] [address] [place] [address] Consulting Physician Pain Management 01/19/21 Artis Grewal MD [address] [place] [address] Consulting Physician Rheumatology 01/30/21 Harrison Pena RN [address] [place] [address] Superintendent Police 05/30/23 09/04/23 Nafisa Gregg, JULIUS [address] [place] [address] [address] [place] [address] Superintendent Police 06/06/23 06/12/23 Amy Mayes NP [address] [address] Nurse Practitioner Cardiovascular Disease 04/20/24 Shailesh Dunn MD [address] [address] Consulting Physician Pulmonary Disease 04/20/24 Sangita Farrar PA [address] [place] [address] Physician Free Lance Artist Rheumatology 05/15/24 documented as of this encounter
--- NOTE | 2024-12-01 13:18 | ED_ITS ---
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 Patient says that the tube is very uncomfortable. She is asking for to be replaced with a new tube. She does not any flank pain or fevers. She sees urologist Tuesday morning. Related Data Home Medications ?Medication ?Instructions ?Recorded ?Confirmed ?Last Taken ?Type aspirin 81 mg tablet,delayed 81 mg PO DAILY 06/20/19 02/29/24 12/11/23 History release (Adult Low Dose Aspirin) bupropion HCl 150 mg 24 hr tablet, 150 mg PO QAM 06/20/19 02/29/24 12/14/23 History extended release hydroxychloroquine 200 mg tablet 200 mg PO BID 06/20/19 02/29/24 12/13/23 20:00 History montelukast 10 mg tablet 10 mg PO QHS 06/20/19 02/29/24 12/08/23 History potassium chloride 10 mEq 10 meq PO DAILY 06/20/19 02/29/24 12/13/23 History tablet,extended release pravastatin 40 mg tablet 40 mg PO DAILY 06/20/19 02/29/24 12/13/23 20:00 History folic acid 1 mg tablet 2 mg PO DAILY 06/21/19 02/29/24 12/13/23 History duloxetine 60 mg capsule,delayed 60 mg PO DAILY 08/20/19 02/29/24 12/14/23 History release calcium carb-ergocalciferol (vit 1 tablet PO BID 03/08/21 02/29/24 12/08/23 History D2) 600 mg calcium-200 unit tablet cholecalciferol (vitamin D3) 125 125 mcg PO DAILY 03/08/21 02/29/24 12/08/23 History mcg (5,000 unit) tablet (Vitamin D3) cyclobenzaprine 5 mg tablet 5 mg PO TID PRN Muscle spasms 03/08/21 02/29/24 12/08/23 History docusate sodium 100 mg capsule 200 mg PO BID 03/08/21 02/29/24 12/08/23 History (Colace) ropinirole 0.5 mg tablet 1 mg PO HS 07/14/21 02/29/24 12/13/23 20:00 History abatacept 125 mg/mL subcutaneous 125 mg subcut WEEKLY 07/22/23 02/29/24 Unknown History syringe (Orencia) bumetanide 1 mg tablet 1 mg PO BID 07/22/23 02/29/24 12/13/23 History clobetasol 0.05 % lotion (Clobex) 1 applic topical BID PRN Itching 07/22/23 02/29/24 12/03/23 History gabapentin 100 mg capsule 200 mg PO BID 07/22/23 02/29/24 12/13/23 20:00 History tramadol 50 mg tablet 50 mg PO Q6H PRN Pain 07/22/23 02/29/24 12/08/23 History methotrexate sodium 2.5 mg tablet 17.5 mg PO WEEKLY 12/05/23 02/29/24 12/07/23 History cetirizine 10 mg capsule (Zyrtec) 10 mg PO DAILY PRN 09/18/24 Unknown History oxycodone-acetaminophen 5 mg-325 1 tablet PO Q6H PRN 09/18/24 Unknown History mg tablet rosuvastatin 10 mg tablet 10 mg PO 09/18/24 Unknown History Allergies Allergy/AdvReac Type Severity Reaction Status Date / Time meperidine Allergy Severe HIVES Verified 11/05/24 15:07 Penicillins Allergy Severe RASH Verified 11/05/24 15:07 hydrocodone Allergy Intermediate HIVES Verified 11/05/24 15:07 [facility] Past Medical History Medical History Obese Arthritis OWEN (obstructive sleep apnea) GERD (gastroesophageal reflux disease) Kidney stones Depression Angina of effort Asthma Hyperlipidemia CAD (coronary atherosclerotic disease) H/O: HTN (hypertension) Moderate persistent asthma without complication Obstructive sleep apnea (adult) (pediatric) Rhinitis Surgical History Surgical History H/O dilation and curettage History of lithotripsy History of hysterectomy History of repair of hiatal hernia Laparoscopic repair hiatal hernia, laparoscopic Leonor fundoplication 12/14/23 History of left knee replacement History of cholecystectomy S/P appy Family History Family History Mother Chronic HF (heart failure) Family history of diabetes mellitus in first degree relative Cerebrovascular accident Father Family history of malignant neoplasm of kidney Family history of liver disease Carcinoma of colon Atrial fibrillation Other Acute myocardial infarction Asthma Diabetes mellitus Family history of arthritis Family history of cardiovascular disease Family history of chronic obstructive pulmonary disease Family history of congestive heart failure Hypertension Malignant neoplasm of prostate Social History Social History Smoking status: Never smoker Alcohol intake: never Substance use: never Substance use type: does not use Do You Feel Safe in your Home?: Yes Lack of Transportation: No Lack of Food: Never True Current Housing: I Have Housing Concerned About Future Housing: No Difficulty Paying Gas/Electric Bills: No Difficulty Paying for Meds: No Currently Unemployed: No Education: High School Diploma/GED Difficulty w/ Childcare or Family Care: No Living arrangements: alone Spiritual care concerns: No Exam Narrative: APPEARANCE: No apparent distress. Head: atraumatic. EYES: EOMI, NOSE: Atraumatic NECK: Trachea midline RESPIRATORY: No increased rate of breathing CARDIOVASCULAR: RRR, ABDOMINAL: Soft nontender no guarding rebound, no CVA tenderness MUSCULOSKELETAl: No obvious deformities NEURO: Alert. Moving 4/4 extremities SKIN:: Warm, dry. Normal color PSYCHIATRIC: Normal affect Course Vital Signs Vital signs: Vital Signs Temperature 97.0 F L 12/01/24 12:22 Pulse Rate 88 12/01/24 12:22 Respiratory Rate 20 12/01/24 12:22 Blood Pressure 104/83 12/01/24 12:22 Pulse Oximetry 98 12/01/24 12:22 Temperature 97.0 F L 12/01/24 12:22 Pulse Rate 77 12/01/24 13:01 Respiratory Rate 16 12/01/24 13:01 Blood Pressure 117/80 12/01/24 13:01 Pulse Oximetry 97 12/01/24 13:01 Medical Decision Making [facility] Narrative Medical decision making narrative: -Course: 69-year-old female with a indwelling Agosto requesting that we change her Agosto due to urethral irritation. She does not have any signs of urinary tract infection such as fevers,suprapubic pain,or flank pain. UA will be sent for culture. She sees her urologist Tuesday who can manage this further. Vital Signs Vital Signs: Vital Signs Temperature 97.0 F L 12/01/24 12:22 Pulse Rate 88 12/01/24 12:22 Respiratory Rate 20 12/01/24 12:22 Blood Pressure 104/83 12/01/24 12:22 Pulse Oximetry 98 12/01/24 12:22 Temperature 97.0 F L 12/01/24 12:22 Pulse Rate 77 12/01/24 13:01 Respiratory Rate 16 12/01/24 13:01 Blood Pressure 117/80 12/01/24 13:01 Pulse Oximetry 97 12/01/24 13:01 Discharge Plan Discharge Clinical Impression: Encounter for Agosto catheter fitting and adjustment Patient Disposition: Home Condition: Stable Instructions: Antibiotic Form, Agosto Catheter Placement and Care (ED) Additional Instructions: You seen in the ED for urethral irritation from your Agosto. Your agosto was replaced and is functioning appropriately. Please follow-up with urologist at your appointment on Tuesday. If you develop fevers flank pain or any new or worsening symptoms return to ED for re-evaluation. Patient Language: Malay Prescriptions: No Action duloxetine 60 mg capsule,delayed release(DR/EC) 60 mg PO DAILY pravastatin 40 mg tablet 40 mg PO DAILY potassium chloride 10 mEq tablet extended release 10 meq PO DAILY montelukast 10 mg tablet 10 mg PO QHS hydroxychloroquine 200 mg tablet 200 mg PO BID bupropion HCl 150 mg tablet extended release 24 hr 150 mg PO QAM aspirin [Adult Low Dose Aspirin] 81 mg tablet,delayed release (DR/EC) 81 mg PO DAILY folic acid 1 mg tablet 2 mg PO DAILY nystatin 100,000 unit/gram powder 1 applic topical BID Qty: 60 0RF Zyrtec 10 mg capsule 10 mg PO DAILY PRN oxycodone-acetaminophen 5-325 mg tablet 1 tablet PO Q6H PRN rosuvastatin 10 mg tablet 10 mg PO lidocaine 5 % adhesive patch,medicated 1 patch topical DAILY Qty: 15 0RF Rx Instructions: leave on most painful area for up to 12 hrs. do not use more than 1 patch in a 24-hour period. cefuroxime axetil 500 mg tablet 500 mg PO BID Qty: 10 0RF cefuroxime axetil 500 mg tablet 500 mg PO BID Qty: 14 0RF cyclobenzaprine 5 mg tablet 5 mg PO TID PRN (Reason: muscle spasm) Qty: 14 0RF acetaminophen 500 mg capsule 500 mg PO Q6H PRN (Reason: pain) Qty: 14 0RF docusate sodium [Colace] 100 mg Capsule 200 mg PO BID calcium carbonate-vitamin D2 600 mg calcium- 200 unit Tablet 1 tablet PO BID cyclobenzaprine 5 mg Tablet 5 mg PO TID PRN (Reason: Muscle spasms) cholecalciferol (vitamin D3) [Vitamin D3] 125 mcg (5,000 unit) Tablet 125 mcg PO DAILY ropinirole 0.5 mg Tablet 1 mg PO HS bumetanide 1 mg tablet 1 mg PO BID gabapentin 100 mg capsule 200 mg PO BID Patient Comments: TAKES 400MG AT HS clobetasol [Clobex] 0.05 % Lotion 1 applic TOPICAL BID PRN (Reason: Itching) Rx Instructions: apply to scalp tramadol 50 mg tablet 50 mg PO Q6H PRN (Reason: Pain) Orencia 125 mg/mL Syringe 125 mg SUBCUT WEEKLY Patient Comments: Tuesday' methotrexate sodium 2.5 mg tablet 17.5 mg PO WEEKLY Patient Comments: TAKES ON WEDNESDAYS cephalexin 500 mg capsule 500 mg PO Q6H 7 Days Qty: 28 0RF Linzess 290 mcg capsule See Rx Instructions .ROUTE .COMPLEX Qty: 30 11RF Dose Instruction: TAKE 1 CAPSULE BY MOUTH EVERY DAY Rx Instructions: TAKE 1 CAPSULE BY MOUTH EVERY DAY fluconazole 150 mg tablet 150 mg PO Q72H Qty: 2 0RF Rx Instructions: as a single dose Follow-up/Referrals: Mikhail,JACQUI Vickers [Primary Care Provider] -
== END 2024-12-01 14:23 | disposition home or self-care (01) ==
PROVIDERS: Emergency Provider Emergency Medicine; PCP Physician Assistant
DX: T83.84XA Pain due to genitourinary prosthetic devices, implants and grafts, initial encounter (principal); R33.9 Retention of urine, unspecified; Y84.6 Urinary catheterization as the cause of abnormal reaction of the patient, or of later complication, without mention of misadventure at the time of the procedure
CPT/HCPCS: 51702; 99283

== ENCOUNTER 2025-06-06 10:32 | Emergency (ER) | payer MEDICARE, SELFPAY ==
[2025-06-06] VITALS (7 sets, daily range): BP systolic 105–115; BP diastolic 45–61; PULSE 63–86; RESP 12–18; TEMP 37; O2SAT 92–100
--- NOTE | ~2025-06-06 | CT_ITS ---
CT ABDOMEN AND PELVIS WITHOUT CONTRAST Clinical History: L Flank pain/hematuria, h/o stones Comparison: CT abdomen pelvis 11/05/2024 Technique: Unenhanced axial images lung bases to symphysis pubis Coronal, sagittal reformats CT images acquired with automatic exposure control for dose reduction DLP: 873 mGy-cm Findings: Without intravenous contrast, sensitivity for detecting visceral parenchymal abnormalities decreased. Lung bases: Clear. Visualized heart and pericardium: Unremarkable. Liver: Unremarkable. Gallbladder: Unremarkable. Spleen: Unremarkable. Pancreas: Unremarkable. Adrenal glands: Unremarkable. Kidneys: Right kidney- No hydronephrosis. No renal stones. Cortical cyst. Left kidney- No hydronephrosis. Small dystrophic cortical calcification versus stone. Distal esophagus/stomach: Unremarkable. Small bowel loops: Normal caliber and wall thickness. Colon: Normal caliber and wall thickness. Appendix not seen. Nodes: No enlarged nodes. Peritoneum: No ascites. No free intraperitoneal air. Unchanged calcification anterior to upper vena cava. Urinary bladder: Suprapubic catheter. Uterus: Removed. Adnexa: No masses. Pelvic lipomatosis. Bones: No acute bony abnormality. Soft tissues: Unremarkable. Unopacified abdominal aorta: No aneurysmal dilatation. IMPRESSION: 1. No acute findings. Reviewed, dictated and finalized at location R. EMS SUPPORT ENGINEER IMPRESSION: 1. No acute findings.
--- OUTSIDE RECORDS SUMMARY | 2025-06-06 09:30 | XMS_ITS | Encounter Summary ---
Author Organization [facility] Healthcare Address [address] [place] [address] Care Team Providers Care Lead Esthetician Name Role Phone Sharan Linton MD Unavailable [phone] Martha Starks MD Unavailable [phone] Shama Hines MD Unavailable Artis Grewal MD Unavailable [phone] Alee Elizondo Primary Care Provider [phone] Amy Mayes NP Unavailable [phone] Shailesh Dunn MD Unavailable [phone] Sangita Farrar Unavailable [phone] Timi Cox MD Unavailable [phone] Teofilo Gongora MD Unavailable [phone] Reason for Visit * Reason Comments Urinary Symptom Pain in back and abd omen Encounter Details Date Type Department Care Team (Latest Contact Info) Description 06/06/2025 9:30 AM EXPERIMENTAL MECHANIC Clinical Support [facility] Family Medicine [address] [facility] [address] [place] [address] Left flank pain (Primary Dx); [...] any time in the past 12 m [facility], were you homeless or living in a care home (including now)? No 05/30/2024 Social Connection and [...] in a care home (including now)? No 05/20/2025 [facility] Utilities Answer Date Recorded In the past 12 months has th e makerSQR, gas, oil, or water [facility] threatened to shut off services in your home? No 05/20/2025 Personal Safety Answer Date Recorded Have you ever been in or are you currently in a harmful physical or emotional relationship or is someone making you feel afraid or unsafe? Denies 05/17/2025 Comments No Sex and Gender Information Value Date Recorded Sex Assigned at Not on file Legal Sex Female 8:04 PM EXPERIMENTAL MECHANIC Gender Identity Female 02/15/2020 6:08 PM CDT Sexual Orientation Not on file documented as of this encounter Progress Notes * Caitlyn Hua MA - 06/06/2025 9:30 AM CST error RIMENTAL MECHANIC documented in this encounter Plan of Treatment Scheduled Orders Name Type Priority Associated Diagnoses Orde r Schedule Urine culture Urine, clean voided Microbiology Routine Left flank pain Dysuria Expected: 06/06/2025, Expires: 06/06/2026 documented as of this encounter Procedures Procedure Name Priority Date/Time Associated Diagnosis Comments POCT URINALYSIS DIPSTICK Routine 06/06/2025 9:45 AM EXPERIMENTAL MECHANIC Left flank pain Dysuria documented in this encounter Results * (ABNORMAL) POCT urinalysis dipstick (06/06/2025 9:45 AM EXPERIMENTAL MECHANIC) Glucose, ur, POC Negative Negative Bilirubin, ur, POC Negative Negative Ketones, ur, POC Negative Negative Specific [place], POC 1.015 1.003 - 1.030 Blood, ur, POC Trace(A) Negative pH, ur, POC 6.5 5.0 - 8.0 Protein, ur, POC Negative Negative Urobilinogen, urine, POC 0.2 0.2 - 1.0 mg/dL Nitrite, ur, POC Positive(A) Negative Leukocytes, ur, POC Moderate(A) Negative Lot Number [id number] Urine 06/06/2025 9:45 AM EXPERIMENTAL MECHANIC us Alee OSMAN POINT OF CARE TEST ORDERAB LES Edited Result - Final documented in this encounter Visit Diagnoses Diagnosis Left flank pain- Primary Abdominal pain, unspecified site Dysuria documented in this encounter Care Teams Lead Esthetician Relationship Specialty Start Date End Date Alee Elizondo PA [address] [facility] [address] [place] [address] PCP - General Internal Medicine 07/05/23 Sharan Linton MD Referring Physician Gastroenterology 10/31/18 Martha Starks MD Consulting Physician Cardiology 12/24/20 Shama Hines MD [address] [facility], [address] [address] Consulting Physician Pain Management 01/19/21 Artis Grewal MD [address] [place] [address] Consulting Physician Rheumatology 01/30/21 Amy Mayes NP [address] [facility] [address] [place] [address] Nurse Practitioner Cardiovascular Disease 04/20/24 Shailesh Dunn MD [address] [facility] [place] [address] Consulting Physician Pulmonary Disease 04/20/24 Sangita Farrar PA [address] [place] [address] Physician Assistant Produce Manager Rheumatology 05/15/24 Timi Cox MD [address] [facility] [id number] [place] [address] Surgeon Colon and Rectal Surgery 01/08/25 Teofilo Gongora MD [address] [facility] [id number] [place] [address] Urologist Urology 01/08/25 documented as of this encounter
--- OUTSIDE RECORDS SUMMARY | 2025-06-06 11:46 | XMS_ITS | Encounter Summary ---
Author Organization [facility] Healthcare Address [address] [place] [address] Care Team Providers Care Oliving 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 Name Role Phone Sharan Linton MD Unavailable [phone] Martha Starks MD Unavailable [phone] Shama Hines MD Unavailable Artis Grewal MD Unavailable [phone] Alee Elizondo Primary Care Provider [phone] Amy Mayes NP Unavailable [phone] Shailesh Dunn MD Unavailable [phone] Sangita Farrar Unavailable iTmi Cox MD Unavailable [phone] Teofilo Gongora MD Unavailable [phone] Allie East LPN Unavailable [phone] Encounter Details Date Type Department Care Team (Late st Contact Info) Description 10/13/2024 Orders Only [facility] Health Information Management [address] [place] [id number] Scanning, Provider Social History Tobacco Use Types Packs/Day Years Used Date Smoking Tobacco: Never Smokeless Tobacco: Never Comments:Never used Alcohol Use Standard Drinks/Week Comments No 0 (1 standard drink = 0.6 oz pur e alcohol) [facility] Utilities Answer Date Recorded In the past 12 months has th e electric, gas, oil, or water [employer] threatened to shut off services in your [...] any time in the past 12 m [facility], were you homeless or living in a [...] on file Legal Sex Female 8:04 PM PLUMBING AND HEATING CONTRACTOR Gender Identity Female 02/15/2020 6:08 PM [...] Suspected 10/23/2024 10/23/2024 10/23/2024 1:15 PM CDT COVID: Suspected 12/03/2024 12/03/2024 12/03/2024 10:09 PM CDT documented as of this encounter Care Teams Oliving 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 Relationship Specialty Start Date End Date Alee Elizondo PA [address] [facility] [address] [place] [address] PCP - General Internal Medicine 07/05/23 Sharan Linton MD Referring Physician Gastroenterology 10/31/18 Martha Starks MD Consulting Physician Cardiology 12/24/20 Shama Hines MD [address] [facility] [address] [address] Consulting Physician Pain Management 01/19/21 Artis Grewal MD [address] [place] [address] Consulting Physician Rheumatology 01/30/21 Amy Mayes NP [address] [facility] [address] [place] [address] Nurse Practitioner Cardiovascular Disease 04/20/24 Shailesh Dunn MD [address] [address] Consulting Physician Pulmonary Disease 04/20/24 Sangita Farrar PA [address] [place] [address] Physician Coin Purse Assembler Rheumatology 05/15/24 Timi Cox MD [address] [facility] [phone] [place] [address] Surgeon Colon and Rectal Surgery 01/08/25 Teofilo Gongora MD [address] [facility] [id number] [place] [address] Urologist Urology 01/08/25 Allie East LPN [address] [place] [address] [address] [place] [address] Hull Grinder 05/21/25 05/21/25 documented as of this encounter
--- OUTSIDE RECORDS SUMMARY | 2025-06-06 11:46 | XMS_ITS | Encounter Summary ---
Author Organization [facility] Care Team Providers Care Marketing Ambassador Name Role Phone Alee Elizondo Primary Care Provider + [phone] Sharan Linton MD Unavailable [phone] Taisha Gomez MD Unavailable [phone] Parag Soto MD Unavailable [phone] RaziaMartha singh MD Unavailable [phone] Puneet Uribe MD Unavailable [phone] Shama Hines MD Unavailable Artis Grewal MD Unavailable [phone] Harrison Pena RN Unavailable [phone] Nafisa Gregg RN Unavailable [phone] Tho Kelsey MD Primary Care Provider [phone] Alee Elizondo Primary Care Provider + [phone] Amy Mayes NP Unavailable [phone] Shailesh Dunn MD Unavailable [phone] Sangita Farrar Unavailable [phone] Timi Cox MD Unavailable [phone] Teofilo Gongora MD Unavailable [phone] Allie East LPN Unavailable Encounter Details Date Type Department Care Team (Latest Contact Info) Description 12/31/2015 Orders Only [facility] Provider, MD [facility] [place] [address] Social History Tobacco Use Types Packs/Day Years Used Date Smoking Tobacco: Never Alcohol Use Standard Drinks/Week Comments No 0 (1 standard drink = 0.6 oz pur e alcohol) Comments Unknown Sex and Gender Information Value Date Recorded Sex Assigned at Not on file Legal Sex Female 8:04 PM IN HOME AIDE Gender Identity Female 02/15/2020 6:08 PM CDT [...] COVID: Suspected 08/13/2021 08/14/2021 08/14/2021 3:06 AM IN HOME AIDE COVID: Suspected 08/14/2021 08/14/2021 08/15/2021 3:05 AM IN HOME AIDE COVID: Suspected 08/14/2021 08/14/2021 08/15/2021 6:25 AM IN HOME AIDE COVID: Suspected 06/02/2023 06/02/2023 06/02/2023 7:25 PM IN HOME AIDE COVID: Suspected 07/26/2023 07/26/2023 07/26/2023 3:10 PM IN HOME AIDE COVID: Suspected 09/25/2024 09/25/2024 09/25/2024 11:03 AM CDT Influenza, adult 09/25/2024 09/25/2024 10/02/2024 3:05 AM CDT COVID: Suspected 10/23/2024 10/23/2024 10/23/2024 1:15 PM CDT COVID: Suspected 12/03/2024 12/03/2024 12/03/2024 10:09 PM CDT documented as of this encounter Care Teams Marketing Ambassador Relationship Specialty Start Date End Date Alee Elizondo PA [address] [place] [address] PCP - General Internal Medicine 02/01/17 06/29/23 Tho Kelsey MD [address] [place] [address] [address] [place] [address] PCP - General Family Medicine 06/30/23 07/04/23 Alee Elizondo PA [address] [place] [address] PCP - General Internal Medicine 07/05/23 Sharan Linton MD [address] [place] [place] [address] Referring Physician Gastroenterology 10/31/18 Taisha Gomez MD [address] [place] [place] [address] Referring Physician Pulmonary Disease 10/31/18 12/23/20 Parag Soto MD [address] [place] [place] [address] Referring Physician Rheumatology 10/31/18 12/23/20 Martha Starks MD [address] [place] [place] [address] Consulting Physician Cardiology 12/24/20 Puneet Uribe MD [address] [facility] [address] [place] [address] Consulting Physician Rheumatology 12/24/20 01/29/21 Shama Hines MD [address] [facility] [address] [place] [address] Consulting Physician Pain Management 01/19/21 Artis Grewal MD [address] [place] [address] Consulting Physician Rheumatology 01/30/21 Harrison Pena RN [address] [place] [address] Chemical Engineering Intern 05/30/23 09/04/23 Nafisa Gregg, JULIUS [address] [facility] [address] [place] [address] Chemical Engineering Intern 06/06/23 06/12/23 Amy Mayes NP [address] [facility] [address] [place] [address] Nurse Practitioner Cardiovascular Disease 04/20/24 Shailesh Dunn MD [address] [facility] [address] [place] [address] Consulting Physician Pulmonary Disease 04/20/24 Sangita Farrar PA [address] [place] [address] Physician Patient Service Associate Rheumatology 05/15/24 Timi Cox MD [address] [facility] [phone] [place] [address] Surgeon Colon and Rectal Surgery 01/08/25 Teofilo Gongora MD [address] [facility] [phone] [place] [address] Urologist Urology 01/08/25 Allie East, DOREEN [address] [place] [address] [address] [place] [address] Chemical Engineering Intern 05/21/25 05/21/25 documented as of this encounter
--- OUTSIDE RECORDS SUMMARY | 2025-06-06 11:46 | XMS_ITS | Encounter Summary ---
Author Organization [facility] Address [address] [place] [address] Care Team Providers Care Rubber Goods Tester Water Name Role Phone Sharan Linton MD Unavailable [phone] Martha Starks MD Unavailable [phone] Shama Hines MD Unavailable Artis Grewal MD Unavailable [phone] Alee Elizondo Primary Care Provider [phone] Amy Mayes NP Unavailable [phone] Shailesh Dunn MD Unavailable Sangita Farrar Unavailable Timi Cox MD Unavailable [phone] Teofilo Gongora MD Unavailable [phone] Allie East LPN Unavailable [phone] Encounter Details Date Type Department Care Team (Late st Contact Info) Description 05/17/2025 Results Follow-Up [facility] Family Medicine [address] [place] [address] Alee Elizondo PA [address] [place] [address] XR Abdomen 1 View AP Social History Tobacco Use Types Packs/Day Years [...] points, staff should administer the PHQ-9) 0 04/25/2025 PRAPARE - Transportation Answer Date Re corded [...] in a usp (including now)? No 05/30/2024 Social Connection and [...] you have a drink containing alcohol? Never 04/25/2025 Q2: How many drinks containi ng alcohol do you have on a typical day when you are drinking? Patient does not drink Q3: How often do you have si x or more drinks on one occasion? Never 04/25/2025 Overall Financial Resource Strain (CARDIA) Answe r [...] money to buy more. Never true 05/20/20 25 Within the past 12 months, t he [...] living in a usp (including now)? No 05/20/2025 [facility] Utilities Answer Date Recorded In the [...] on file Legal Sex Female 8:04 PM STOCK MOVER Gender Identity Female 02/15/2020 6:08 PM CDT Sexual Orientation Not on file documented as of this encounter Functional Status * Difference in Last Two Oren Scores Answer Date of Assessment Author 0 05/20/2025 7:30 AM Leola Fuentes RN * Eckert Fall Risk Question Answer Date of Assessment Author History of Falling 0 05/20/2025 7:30 AM Leola Fuentes RN Secondary Diagnosis 15 05/20/2025 7:30 AM CS Leola Ross RN Ambulatory Aids 0 05/20/2025 7:30 AM Leola Arias RN Intravenous Therapy/Heparin/Saline Lock 20 05/20/2025 7:30 AM Leola Fuentes RN Gait/Transferring 0 05/20/2025 7:30 AM Leola Fuentes RN Mental Status 0 05/20/2025 7:30 AM Leola Ha RN Eckert Fall Risk Score (Score >= 45 places fall precaution order) 35 05/20/2025 7:30 AM Leola Fuentes RN Prior Fall Event (Autopopulated from EMR) None found 05/20/2025 7:30 AM Mary Grace Fuentes RN * Oren Scale Question Answer Date of Assessment Author Sensory Perceptions 4 05/20/2025 7:30 AM CS Flavio Multani, Leola Churchill RN Moisture 4 05/20/2025 7:30 AM OCHOA dillard, Leola Churchill RN Activity 4 05/20/2025 7:30 AM OCHOA dillard, Leola Churchill RN Mobility 3 05/20/2025 7:30 AM Leola Tejada RN Nutrition 3 05/20/2025 7:30 AM Leola Tejada RN Friction and Shear 3 05/20/2025 7:30 AM Leola Fuentes RN Oren Scale Score 21 05/20/2025 7:30 AM Leola Fuentes RN * BP Location Answer Date of Assessment Author Right arm 05/20/2025 10:35 AM Johan Palacios * MAP (mmHg) Answer Date of Assessment Author 77 05/20/2025 10:35 AM Johan Palacios * Question Answer Date of Assessment Author BP Method Automatic 05/18/2025 3:15 PM STOCK MOVER Elena Anderson * Fall Risk Interventions Question Answer Date of Assessment Author All Low Fall Interventions Applied Yes 05/20/2025 7:30 AM Leola Fuentes RN All Moderate Fall Interventions Applied Yes 05/20/2025 7:30 AM Tayler Fuentes RN All High Fall Risk Interventions Applied No 05/20/2025 7:30 AM Tayler Fuentes RN All High Risk Interventions EXCEPT: Bed alarm 05/20/2025 7:30 AM Leola Fuentes RN Reason For Exception(s) independent 05/20/2025 7:30 A M Leola Fuentes, JULIUS * B.M.A.T. - Bedside Mobility Assessment Tool for Nurses Question Answer Date of Assessment Author Is patient able to participate in the BMAT? Yes 05/20/2025 7:30 AM Mary Grace Fuentes RN BMAT Level Level 4 - Green 05/20/2025 7:30 AM Leola Arias, JULIUS * Question Answer Date of Assessment Author 1. Has the patient self-repo rted, presented with clinical signs of, or have a documented history of any of the following within the past 30 days? No 05/17/2025 4:55 PM Mary Ann Stoner , JULIUS * Question Answer Date of Assessment Author Is the patient being treated today because it is known or suspected that they prepared, started, or tried to end their life? No 05/17/2025 11:48 AM Torsten Meade RN * Question Answer Date of Assessment Author 1. In the past month, have y ou wished you were or that you could go to sleep and not wake up? No 05/17/2025 11:48 AM Torsten Meade RN 2. In the past month, have y ou actually had any thoughts of killing yourself? No 05/17/2025 11:48 AM Torsten Meade, JULIUS 6. Have you ever done anythi ng, started to do anything, or prepared to do anything to end your life? No 05/17/2025 11:48 AM Torsten Meade, JULIUS * Suicide Risk Level Answer Date of Assessment Author No risk level 05/17/2025 11:48 AM Torsten Meade RN * Self-Injurious Risk Level Answer Date of Assessment Author No risk level 05/17/2025 4:55 PM Mary Ann Stoner, JULIUS * Pressure Injury Prevention Question Answer Date of Assessment Author Pressure Ulcer Prevention Interventions Keep skin clean and dry (Sensory Perception/Moisture ) 05/20/2025 7:30 AM Leola Fuentes, JULIUS 2 Nurse Skin Assessment Rosa Oconnor RN 05/18/2025 7:00 AM Rosa Palomo, RN * Transdermal Patch Admission Assessment Question Answer Date of Assessment Author Transdermal Patch Assessment on Admission Not Present 05/17/2025 5:25 PM STOCK MOVER Tanesha Wiley RN * Fall Risk Assessment Tool - MEDFRAT Question Answer Date of Assessment Author Prior Fall Event (Autopopulated from EMR) None found 05/17/2025 11:51 AM Rafita Meade RN Pt needs supervision/assistance with ambulation? (makes patient High risk) No 05/17/2025 11:51 AM Torsten Meade RN History of falling in last 3 months, including since admission 0 05/17/2025 11:51 AM Torsten Meade RN Confusion or disorientation 0 05/17/2025 11 :51 AM Torsten Meade RN Intoxicated or sedated 0 05/17/2025 11:51 A M Torsten Meade RN Impaired gait 0 05/17/2025 11:51 AM Torsten Richards RN Mobility assist device used 0 05/17/2025 11 :51 AM Torsten Meade RN Altered elimination 0 05/17/2025 11:[address] Torsten Bautista RN Fall risk score: (1-2 low risk), (3-4 moderate risk), (5 or more high risk) 0 05/17/2025 11:51 AM Torsten Meade RN * Integumentary Question Answer Date of Assessment Author Skin Color Appropriate for ethnicity 05/20/2025 7:30 AM Leola Fuentes RN Skin Condition/Temp Warm;Dry 05/20/2025 7 :30 AM Leola Fuentes RN Skin Integrity Redness 05/20/2025 7:30 AM Leola Fuentes RN Skin Turgor Non-tenting 05/20/2025 7:30 AM Leola Fuentes RN Integumentary Additional Assessments Yes-Oren 05/18/2025 7:00 PM Barney Valero Jr., RN Integumentary (WDL) X 05/20/2025 7 :30 AM Leola Fuentes RN Skin Location Abdomen 05/20/2025 7:30 AM Leola Fuentes RN * Question Answer Date of Assessment Author Percent Meal Eaten (%) 75 05/20/2025 12:55 P M STOCK MOVER Suni Larson Feeding Level of Assistance Able to feed self 05/20/2025 12:55 PM STOCK MOVER Suni Larson Appetite Fair 05/19/2025 12:50 PM STOCK MOVER Kendra Mahajan * BP Location Answer Date of Assessment Author Right arm 05/20/2025 10:35 AM STOCK MOVER Johan Larson * Question Answer Date of Assessment Author BP Method Automatic 05/18/2025 3:15 PM STOCK MOVER Elena Anderson * Fall Risk Interventions Question Answer Date of Assessment Author All Low Fall Interventions Applied Yes 05/20/2025 7:30 AM Leola Fuentes RN All Moderate Fall Interventions Applied Yes 05/20/2025 7:30 AM Tayler Fuentes RN All High Fall Risk Interventions Applied No 05/20/2025 7:30 AM Tayler Fuentes RN All High Risk Interventions EXCEPT: Bed alarm 05/20/2025 7:30 AM Leola Fuentes RN Reason For Exception(s) independent 05/20/2025 7:30 A M Leola Fuentes RN * ADL Screening Question Answer Date of Assessment Author Patient's Vision Adequate to Safely Complete Daily Activities Yes 05/17/2025 4:55 PM Mary Ann Stoner RN Patient's Judgement Adequate to Safely Complete Daily Activities Yes 05/17/2025 4:55 PM Mary Ann Stoner RN Patient's Memory Adequate to Safely Complete Daily Activities Yes 05/17/2025 4:55 PM Mary Ann Stoner RN Patient Able to Express Needs/Desires Yes 05/17/2025 4:55 PM Mary Ann Stoner RN Dressing Independent 05/17/2025 4:55 PM Mary Ann Luna, JULIUS Grooming Independent 05/17/2025 4:55 PM Mary Ann Luna RN Feeding Independent 05/17/2025 4:55 PM Mary Ann Luna RN Bathing Independent 05/17/2025 4:55 PM Mary Ann Luna RN Toileting Independent 05/17/2025 4:55 PM Mary Ann Luna RN In/Out Bed Independent 05/17/2025 4:55 PM Mary Ann Luna RN Walks in Home Independent 05/17/2025 4:55 PM Mary Ann Valverde RN Weakness of Legs None 05/17/2025 4:55 PM Mary Ann Pruitt RN Weakness of Arms/Hands None 05/17/2025 4:55 PM Mary Ann Stoner RN Hearing - Right Ear Functional 05/17/2025 4:55 PM Mary Ann Hearn RN Hearing - Left Ear Functional 05/17/2025 4:55 PM Mary Ann Stoner RN Dominant hand? Right 05/17/2025 4:55 PM Mary Ann Dudley RN Decline in ADLs in last 2 weeks? No 05/17/2025 4:55 PM Mary Ann Stoner RN * Therapy Consults Question Answer Date of Assessment Author PT Evaluation Needed 2 05/17/2025 4:55 PM Mary Ann Plata RN OT Evaluation Needed 2 05/17/2025 4:55 PM Mary Ann Plata, JULIUS MEDICAL DEVICE SALES Evaluation Needed 2 05/17/2025 4:55 PM Mary Ann Stoner RN * Assistive Devices Question Answer Date of Assessment Author Assistive Devices/DME None 05/17/2025 4:55 PM Mary Ann Stoner RN * Speech/Swallow Screening Question Answer Date of Assessment Author Currently, does patient have difficulty swallowing; coughing/choking while swallowing, or feels like food is sticking No 05/17/2025 4:55 PM Mary Ann Stoner RN In the past two weeks has the patient had changes in speaking or ability to comprehend conversation No 05/17/2025 4:55 PM Mary Ann Stoner, JULIUS Currently, does patient require thickened liquids or dysphagia diet No 05/17/2025 4:55 PM STOCK MOVER Mary Ann Waters, JULIUS Patient is in need of MEDICAL DEVICE SALES Order: No MEDICAL DEVICE SALES order needed from this assessment 05/17/2025 4:55 PM STOCK MOVER Mary Ann Waters, JULIUS * Hygiene Question Answer Date of Assessment Author Oral Care Lip moisturizer 05/20/2025 8:49 AM STOCK MOVER Suni Larson Hygiene Level of Assistance Independent 05/20/2025 8:49 AM STOCK MOVER Suni Larson Toileting: Assistance with Up to bathroom toilet;Back to bed 05/19/2025 9:46 AM STOCK MOVER Kendra Ye Toileting: Level of assistance Independent 05/20/2025 5:00 AM STOCK MOVER Paco Driscoll, JULIUS Reason not bathed/showered Patient/family refused bath/shower 05/20/2025 4:00 AM STOCK MOVER Naga Olson Perineal Care Alia Care;Lyles Care 05/20/2025 8:49 AM STOCK MOVER Suni Larson Linens Absorbent pad changed 05/18/2025 12:10 PM STOCK MOVER Elena Lee Bath Bathed/showered with chlorhexidine (CHG) 05/20/2025 8:49 AM STOCK MOVER Suni Larson documented as of this encounter Mental Status * Question Answer Entry Date Author Neuro (WDL) WDL 05/20/2025 7:30 AM STOCK MOVER Leola Butterfield, JULIUS documented in this encounter Plan of Treatment Not on file documented as of this encounter Visit Diagnoses Not on filedocumented in this encounter Care Teams Rubber Goods Tester Water Relationship Specialty Start Date End Date Alee Elizondo PA [address] [address] PCP - General Internal Medicine 07/05/23 Sharan Linton MD Referring Physician Gastroenterology 10/31/18 Martha Starks MD Consulting Physician Cardiology 12/24/20 Shama Hines MD [address] [facility] [address] [place] [address] Consulting Physician Pain Management 01/19/21 Artis Grewal MD [address] [place] [address] Consulting Physician Rheumatology 01/30/21 Amy Mayes NP [address] [facility] [address] [place] [address] Nurse Practitioner Cardiovascular Disease 04/20/24 Shailesh Dunn MD [address] [facility] [address] [address] Consulting Physician Pulmonary Disease 04/20/24 Sangita Farrar PA [address] [place] [address] Physician Learning And Development Administrator Rheumatology 05/15/24 Timi Cox MD [id number] [place] [address] Surgeon Colon and Rectal Surgery 01/08/25 Teofilo Gongora MD [address] [id number] [place] [address] Urologist Urology 01/08/25 Allie East, RACK WORKER [address] [facility] [address] [place] [address] Chicken Raiser 05/21/25 05/21/25 documented as of this encounter
--- OUTSIDE RECORDS SUMMARY | 2025-06-06 11:46 | XMS_ITS | Encounter Summary ---
Author Organization [facility] Care Team Providers Care Community Health Planning Director Name Role Phone Alee Elizondo Primary Care Provider + [phone] Sharan Linton MD Unavailable [phone] Taisha Gomez MD Unavailable [phone] Parag Soto MD Unavailable [phone] RaziaMartha singh MD Unavailable [phone] Puneet Uribe MD Unavailable [phone] Shama Hines MD Unavailable Artis Grewal MD Unavailable [phone] Harrison Pena RN Unavailable [phone] Nafisa Gregg RN Unavailable [phone] Tho Kelsey MD Primary Care Provider [phone] Alee Elizondo Primary Care Provider + [phone] Amy Mayes NP Unavailable [phone] Shailesh Dunn MD Unavailable [phone] Sangita Farrar Unavailable [phone] Timi Cox MD Unavailable [phone] Teofilo Gongora MD Unavailable [phone] Allie East LPN Unavailable Encounter Details Date Type Department Care Team (Latest Contact Info) Description 03/24/2016 Orders Only [facility]INCONV Provider, MD Tania [facility] [place] [address] Social History Tobacco Use Types Packs/Day Years Used Date Smoking Tobacco: Never Alcohol Use Standard Drinks/Week Comments No 0 (1 standard drink = 0.6 oz pur e alcohol) Comments Unknown Sex and Gender Information Value Date Recorded Sex Assigned at Not on file Legal Sex Female 8:04 PM COAL PULVERIZING OPERATOR Gender Identity Female 02/15/2020 6:08 PM [...] COVID: Suspected 08/13/2021 08/14/2021 08/14/2021 3:06 AM COAL PULVERIZING OPERATOR COVID: Suspected 08/14/2021 08/14/2021 08/15/2021 3:05 AM COAL PULVERIZING OPERATOR COVID: Suspected 08/14/2021 08/14/2021 08/15/2021 6:25 AM COAL PULVERIZING OPERATOR COVID: Suspected 06/02/2023 06/02/2023 06/02/2023 7:25 PM COAL PULVERIZING OPERATOR COVID: Suspected 07/26/2023 07/26/2023 07/26/2023 3:10 PM COAL PULVERIZING OPERATOR COVID: Suspected 09/25/2024 09/25/2024 09/25/2024 11:03 AM CDT Influenza, adult 09/25/2024 09/25/2024 10/02/2024 3:05 AM CDT COVID: Suspected 10/23/2024 10/23/202410/2310/23/2024 1:15 PM CDT COVID: Suspected 12/03/2024 12/03/2024 12/03/2024 10:09 PM CDT documented as of this encounter Care Teams Community Health Planning Director Relationship Specialty Start Date End Date Alee Elizondo PA [address] [place] [address] PCP - General Internal Medicine 02/01/17 06/29/23 Tho Kelsey MD [address] [place] [address] [address] [place] [address] PCP - General Family Medicine 06/30/23 07/04/23 Alee Elizondo PA [address] [place] [address] PCP - General Internal Medicine 07/05/23 Sharan Linton MD [address] [place] [address] Referring Physician Gastroenterology 10/31/18 Taisha Gomez MD [address] [place] [address] Referring Physician Pulmonary Disease 10/31/18 12/23/20 Parag Soto MD [address] [place] [place] [address] Referring Physician Rheumatology 10/31/18 12/23/20 Martha Starks MD [address] [place] [address] Consulting Physician Cardiology 12/24/20 Puneet Uribe MD [address] [facility] [address] [place] [address] Consulting Physician Rheumatology 12/24/20 01/29/21 Shama Hines MD [address] [facility] [address] [place] [address] Consulting Physician Pain Management 01/19/21 Artis Grewal MD [address] [place] [address] Consulting Physician Rheumatology 01/30/21 Harrison Pena RN [address] [place] [address] Continuous Crusher Operator 05/30/23 09/04/23 Nafisa Gregg RN [address] [facility] 300 [place] [address] Continuous Crusher Operator 06/06/23 06/12/23 Amy Mayes NP [address] [place] [address] 300 [place] [address] Nurse Practitioner Cardiovascular Disease 04/20/24 Shailesh Dunn MD [address] [facility] [address] [place] [address] Consulting Physician Pulmonary Disease 04/20/24 Sangita Farrar PA [address] [place] [address] Physician Nuclear Engineer Rheumatology 05/15/24 Timi Cox MD [address] [facility] [id number] [place] [address] Surgeon Colon and Rectal Surgery 01/08/25 Teofilo Gongora MD [address] [id number] [place] [address] Urologist Urology 01/08/25 lAlie East LPN [address] [place] [address] [address] [place] [address] Continuous Crusher Operator 05/21/25 05/21/25 documented as of this encounter
--- OUTSIDE RECORDS SUMMARY | 2025-06-06 11:46 | XMS_ITS | Encounter Summary ---
Author Organization [facility] Address [address] [place] [address] Care Team Providers Care Puff Iron Operator Name Role Phone Sharan Linton MD Unavailable [phone] Martha Starks MD Unavailable [phone] Shama Hines MD Unavailable Artis Grewal MD Unavailable [phone] Alee Elizondo Primary Care Provider [phone] Amy Mayes NP Unavailable [phone] Shailesh Dunn MD Unavailable [phone] Sangita Farrar Unavailable Timi Cox MD Unavailable [phone] Teofilo Gongora MD Unavailable + [phone] Allie East LPN Unavailable [phone] Reason for Visit * Reason Onset Date Comments Back Pain 05/17/2025 Abdominal Pain 05/17/2025 Urinary Retention 05/17/2025 Encounter Details Date Type Department Care Team (Late st Contact Info) Description 05/17/2025 Nurse Triage [facility] Family Medicine [address] [place] [address] Alee Elizondo PA [address] [place] [address] Social History Tobacco Use Types [...] any time in the past 12 m [facility], were you homeless or living in a custodial (including now)? No 05/30/2024 Social Connection and [...] any time in the past 12 m [facility], were you homeless or living in a custodial (including now)? No 05/20/2025 [facility] Utilities Answer Date [...] on file Legal Sex Female 8:04 PM CONCRETE FENCE BUILDER Gender Identity Female 02/15/2020 6:08 PM [...] Sensory Perceptions 4 05/20/2025 7:30 AM CS Leola Ross RN Moisture 4 05/20/2025 7:30 AM Leola Tejada RN Activity 4 05/20/2025 7:30 AM Leola Tejada RN Mobility 3 05/20/2025 7:30 AM Leola [...] Author BP Method Automatic 05/18/2025 3:15 PM CONCRETE FENCE BUILDER Elena Anderson * Fall Risk Interventions Question Answer Date of Assessment Author All Low Fall Interventions Applied Yes 05/20/2025 7:30 AM Leola Fuentes RN All Moderate Fall Interventions Applied Yes 05/20/2025 7:30 AM Tayler Fuentes RN All High Fall Risk Interventions Applied No 05/20/2025 7:30 AM Tayler Fuentes RN All High Risk Interventions EXCEPT: Bed alarm 05/20/2025 7:30 AM Leoal Fuentes RN Reason For Exception(s) independent 05/20/2025 7:30 A M Leola Fuentes, JULIUS * B.M.A.T. - Bedside Mobility Assessment Tool for Nurses Question Answer Date of Assessment Author Is patient able to participate in the BMAT? Yes 05/20/2025 7:30 AM Mary Grace Fuentes, JULIUS BMAT Level Level 4 - Green 05/20/2025 [...] your life? No 05/17/2025 11:48 AM Torsten Meade RN * Suicide Risk Level Answer Date of [...] Rosa Oconnor RN 05/18/2025 7:00 AM Rosa Palomo RN * Transdermal Patch Admission Assessment Question Answer Date of Assessment Author Transdermal Patch Assessment on Admission Not Present 05/17/2025 5:25 PM CONCRETE FENCE BUILDER Tanesha Wiley RN * Fall Risk Assessment [...] Altered elimination 0 05/17/2025 11:51 AM C Torsten Hernandez RN Fall risk score: (1-2 low risk), [...] Eaten (%) 75 05/20/2025 12:55 P M CONCRETE FENCE BUILDER Suni Larson Feeding Level of Assistance Able to feed self 05/20/2025 12:55 PM CONCRETE FENCE BUILDER Suni Larson Appetite Fair 05/19/2025 12:50 PM CONCRETE FENCE BUILDER Kendra Mahajan * BP Location Answer Date of Assessment Author Right arm 05/20/2025 10:35 AM CONCRETE FENCE BUILDER Johan Larson * Question Answer Date of Assessment Author BP Method Automatic 05/18/2025 3:15 PM CONCRETE FENCE BUILDER Elena Anderson * Fall Risk Interventions Question [...] Yes 05/17/2025 4:55 PM Mary Ann Stoner , JULIUS Patient's Judgement Adequate to Safely Complete Daily Activities Yes 05/17/2025 4:55 PM Mary Ann Stoner RN Patient's Memory Adequate to Safely Complete Daily Activities Yes 05/17/2025 4:55 PM Mary Ann Stoner , JULIUS Patient Able to Express Needs/Desires Yes 05/17/2025 4:55 PM Mary Ann Stoner , JULIUS Dressing Independent 05/17/2025 4:55 PM Mary Ann Luna RN Grooming Independent 05/17/2025 4:55 PM Mary Ann [...] 05/17/2025 4:55 PM Mary Ann Plata RN PLATFORM POWER TECHNICIAN Evaluation Needed 2 05/17/2025 4:55 PM Mary [...] to comprehend conversation No 05/17/2025 4:55 PM CONCRETE FENCE BUILDER Mary Ann Waters, JULIUS Currently, does patient require thickened liquids or dysphagia diet No 05/17/2025 4:55 PM CONCRETE FENCE BUILDER Mary Ann Waters, RN Patient is in need of PLATFORM POWER TECHNICIAN Order: No PLATFORM POWER TECHNICIAN order needed from this assessment 05/17/2025 4:55 PM CONCRETE FENCE BUILDER Mary Ann Waters, JULIUS * Hygiene Question Answer Date of Assessment Author Oral Care Lip moisturizer 05/20/2025 8:49 AM CONCRETE FENCE BUILDER Suni Larson Hygiene Level of Assistance Independent 05/20/2025 8:49 AM CONCRETE FENCE BUILDER Suni Larson Toileting: Assistance with Up to bathroom toilet;Back to bed 05/19/2025 9:46 AM CONCRETE FENCE BUILDER Kendra Ye Toileting: Level of assistance Independent 05/20/2025 5:00 AM CONCRETE FENCE BUILDER Paco Driscoll RN Reason not bathed/showered Patient/family refused bath/shower 05/20/2025 4:00 AM CONCRETE FENCE BUILDER Naga Olson Perineal Care Alia Care;Lyles Care 05/20/2025 8:49 AM CONCRETE FENCE BUILDER Suni Larson Linens Absorbent pad changed 05/18/2025 12:10 PM CONCRETE FENCE BUILDER Elena Lee Bath Bathed/showered with chlorhexidine (CHG) 05/20/2025 8:49 AM CONCRETE FENCE BUILDER Suni Larson documented as of this encounter Mental Status * Question Answer Entry Date Author Neuro (WDL) WDL 05/20/2025 7:30 AM CONCRETE FENCE BUILDER Leola Butterfield RN documented in this encounter Miscellaneous Notes * Telephone Encounter - Kassandra Artis RN - 05/17/2025 10:54 AM CONCRETE FENCE BUILDER Reason for Conversation Back Pain, Abdominal Pain, and Urinary Retention Background Pt reports severe lower abdominal pain with left worse than the right. Pain is constant with more severe pains. Pt is only producing small amounts of urine, She is also vomiting and having back pain.Pt reports increased pain since her supra pubic catheter was changed on 05/13. Disposition Go to ED Now Disposition per guideline: GO TO ED NOW. Pt verbalized understanding. Routing to office to notify pt advised to go to ED due to severe abdominal pain. Reason for Disposition SEVERE abdominal pain (e.g., excruciating) No Initial Assessment on file. No Additional Information on file. Protocols Used Abdominal Pain - Iiswid-Ssccr-PT RETE FENCE BUILDER * Telephone Encounter - Kassandra Artis RN - 05/17/2025 10:40 AM CONCRETE FENCE BUILDER Regarding: Severe pain lower abd and back with Vomiting ----- Message from Jennifer Adarsh sent at 05/17/2025 10:39 AM CONCRETE FENCE BUILDER ----- Symptom Based Call Chief Complaint(s): Severe pain lower abd and back with Vomiting Duration: Got worse this morning, has been going on for 3 weeks has seen the provider What type of symptom(s) is the patient experiencing? Red Flag. Is the patient concerned they are experiencing a medical emergency requiring an ambulance? No Additional Comments: Pt called wanting to know if her imaging had come back front his morning advised it had not resulted just yet. She has kidney stone crystals found in urine. She stated she is thinking about going to the ER to be evaluated but does not want to have to sit and wait for hours if not recommended. She stated she is having very limited urine like 1- 2 teaspoons full with worsening abd and back pain. She stated she got a new catheter Tuesday which made it worse as well. Does message need to be routed? Yes-Action Needed RETE FENCE BUILDER documented in this encounter Plan of Treatment Not on file documented as of this encounter Visit Diagnoses Not on filedocumented in this encounter Care Teams Puff Iron Operator Relationship Specialty Start Date End Date Alee Elizondo PA [address] [facility] [address] [place] [address] PCP - General Internal Medicine 07/05/23 Sharan Linton MD Referring Physician Gastroenterology 10/31/18 Martha Starks MD Consulting Physician Cardiology 12/24/20 Shama Hines MD [address] [facility] [address] [place] [address] Consulting Physician Pain Management 01/19/21 Artis Grewal MD [address] [place] [address] Consulting Physician Rheumatology 01/30/21 [place] [address] [place] [address] [address] [place] [address] Nurse Practitioner Cardiovascular Disease 04/20/24 Shailesh Dunn MD [address] [address] Consulting Physician Pulmonary Disease 04/20/24 Sangita Farrar PA [address] [place] [address] Physician Stitcher Special Machine Rheumatology 05/15/24 Timi Cox MD [address] [phone] [place] [address] Surgeon Colon and Rectal Surgery 01/08/25 Teofilo Gongora MD [address] [phone] [place] [address] Urologist Urology 01/08/25 Allie East, PARI MUTUAL TICKET CHECKER [address] [facility] 300 [place] [address] Senior Advisory 05/21/25 05/21/25 documented as of this encounter
--- OUTSIDE RECORDS SUMMARY | 2025-06-06 11:46 | XMS_ITS | Encounter Summary ---
Author Organization [facility] Care Team Providers Care Assistant Professor Of Surgery Name Role Phone Alee Elizondo Primary Care Provider + [phone] Sharan Linton MD Unavailable [phone] Taisha Gomez MD Unavailable [phone] Parag Soto MD Unavailable [phone] RaziaMartha singh MD Unavailable [phone] Puneet Uribe MD Unavailable [phone] Shama Hines MD Unavailable Artis Grewal MD Unavailable [phone] Harrison Pena RN Unavailable +[phone] Nafisa Gregg RN Unavailable [phone] Tho Kelsey MD Primary Care Provider [phone] Alee Elizondo Primary Care Provider + [phone] Amy Mayes NP Unavailable [phone] Shailesh Dunn MD Unavailable [phone] Sangita Farrar Unavailable [phone] Timi Cox MD Unavailable [phone] Teofilo Gongora MD Unavailable [phone] Allie East LPN Unavailable Encounter Details Date Type Department Care Team (Latest Contact Info) Description 11/04/2015 Orders Only [facility] CLINCONV Provider, MD Tania [address] [place] [address] Social History Tobacco Use Types Packs/Day Years Used Date Smoking Tobacco: Never Assessed Comments Unknown Sex and Gender Information Value Date Recorded Sex Assigned at Not on file Legal Sex Female 8:04 PM WALLPAPER EMBOSSER HELPER Gender Identity Female 02/15/2020 6:08 PM [...] COVID: Suspected 08/13/2021 08/14/2021 08/14/2021 3:06 AM WALLPAPER EMBOSSER HELPER COVID: Suspected 08/14/2021 08/14/2021 08/15/2021 3:05 AM WALLPAPER EMBOSSER HELPER COVID: Suspected 08/14/2021 08/14/2021 08/15/2021 6:25 AM WALLPAPER EMBOSSER HELPER COVID: Suspected 06/02/2023 06/02/2023 06/02/2023 7:25 PM WALLPAPER EMBOSSER HELPER COVID: Suspected 07/26/2023 07/26/2023 07/26/2023 3:10 PM WALLPAPER EMBOSSER HELPER COVID: Suspected 09/25/2024 09/25/2024 09/25/2024 11:03 AM CDT Influenza, adult 09/25/2024 09/25/2024 10/02/2024 3:05 AM CDT COVID: Suspected 10/23/2024 10/23/2024 10/23/2024 1:15 PM CDT COVID: Suspected 12/03/2024 12/03/2024 12/03/2024 10:09 PM CDT documented as of this encounter Care Teams Assistant Professor Of Surgery Relationship Specialty Start Date End Date Alee Elizondo PA [address] [place] [address] PCP - General Internal Medicine 02/01/17 06/29/23 Tho Kelsey MD [address] [place] [address] [address] [place] [address] PCP - General Family Medicine 06/30/23 07/04/23 Alee Elizondo PA [address] [place] [address] PCP - General Internal Medicine 07/05/23 Sharan Linton MD [address] [place] [address] Referring Physician Gastroenterology 10/31/18 Taisha Gomez MD [address] [facility] [address] [place], [place] [address] Referring Physician Pulmonary Disease 10/31/18 12/23/20 Parag Soto MD [address] [place] [address] Referring Physician Rheumatology 10/31/18 12/23/20 Martha Starks MD [address] [place] [address] Consulting Physician Cardiology 12/24/20 Puneet Uribe MD [address] [place] [address] Consulting Physician Rheumatology 12/24/20 01/29/21 Shama Hines MD [address] [facility] 230 [place] [address] Consulting Physician Pain Management 01/19/21 Artis Grewal MD [address] [place] [address] Consulting Physician Rheumatology 01/30/21 Harrison Pena RN [address] [place] [address] Coffee Grinder 05/30/23 09/04/23 Nafisa Gregg RN [address] [place] [address] [address] [place] [address] Coffee Grinder 06/06/23 06/12/23 Amy Mayes NP [address] [place] [address] [address] [place] [address] Nurse Practitioner Cardiovascular Disease 04/20/24 Shailesh Dunn MD [address] [facility] 200 [place] [address] Consulting Physician Pulmonary Disease 04/20/24 Sangita Farrar PA [address] [place] [address] Physician Dietetic Technician Rheumatology 05/15/24 Timi Cox MD [address] [phone] [place] [address] Surgeon Colon and Rectal Surgery 01/08/25 Teofilo Gongora MD [address] [facility] [phone] [place] [address] Urologist Urology 01/08/25 Allie East, DOREEN [address] [place] [address] [address] [place] [address] Coffee Grinder 05/21/25 05/21/25 documented as of this encounter
--- OUTSIDE RECORDS SUMMARY | 2025-06-06 11:46 | XMS_ITS | Clinical Summary ---
Author Organization [facility] [employer] Address [address] [facility] [place] [address] Care Team Providers Care Sales Representative Aircraft Name Role Phone Darvin Harden MD Primary Care Provider [phone] Source Comments [facility] [employer],non-owned Affiliates and Associated Physician Practices is amultiple site organization consisting of ambulatory clinics and hospital sitesin [place], [place], [place] and [place]. This disclosure is being madepursuant to the Care Everywhere program and may not contain all information available regarding this patient. Last updated 18.[facility] [employer] Allergies Active Allergy Reactions Criticality Noted Date [...] fluticasone propionate (Flonase) 50 MCG/ACT nasal spray [place] 2 (two) sprays into the nose once [...] on file Legal Sex Female 4:14 PM SOCIAL MEDIA MARKETER Gender Identity Not on file Sexual Orientation Not on file Plan of Treatment Health Maintenance Due Date Last Done Comments COLOGUARD (AGES 45-75) - COLON CA SCREENING 1955 CT COLONOGRAPHY - COLON CA SCREENING 1955 FIT - COLON CA SCREENING 1955 FLEX SIG - COLON CA SCREENING 1955 MEDICARE AWV 12 MONTHS 1955 HEPATITIS C SCREENING 06/03/1973 DTAP/TDAP/TD VACCINES (1 - Tdap) 1974 PNEUMOCOCCAL VACCINE 50+ (1 of 1 - PCV) 2005 Respiratory Syncytial Virus (RSV) Vaccine Pt: or over 60 yrs (1 - Risk 50-74 years 1-dose series) 2005 ZOSTER VACCINE (1 of 2) 2005 MAMMOGRAM 05/29/2023 05/29/2021, 04/25/2020 DEPRESSION SCREENING 07/04/2024 COVID-19 VACCINE ( - season) 2025 04/14/2023, 08/17/2022, 03/30/2022, Additional history exists INFLUENZA VACCINE (#1) 2025 , 03/30/2022, 04/10/2020, Additional history exists COLON MONITORING 07/27/2031 07/27/2021 COLONOSCOPY - COLON CA SCREENING 07/27/2031 07/27/2021 [...] patient's age to complete this topic [place] [address] [place] [address] MEDICARE [facility] MEDICARE SELF PAY NO INSURANCE Member Subscriber Plan / Payer (Ef fective for All Dates) Name:LockNohemy Member ID:Not on file Relation to Subscriber:Not on file Name:NOHEMY LOCK Subscriber ID:Not on file Address: [address] [place] [address] Payer ID:Not on file Group ID:Not on file Type:Self Pay Address: [place], [place] [employer] SELF PAY NO INSURANCE Member Subscriber Plan / Payer (Ef fective for All Dates) Name:Nohemy Lock Member ID:Not on file Relation to Subscriber:Not on file Name:NOHEMY LOCK Subscriber ID:Not on file Address: [address] [place] [address] Payer ID:Not on file Group ID:Not on file Type:Self Pay Address: [place], [place] [facility] MEDICARE SELF PAY NO INSURANCE Member Subscriber Plan / Payer (Ef fective for All Dates) Name:Nohemy Lock Member ID:Not on file Relation to Subscriber:Not on file Name:NOHEMY LOCK Subscriber ID:Not on file Address: [address] [place] [address] [place] [address] Payer ID:Not on file Group ID:Not on file Type:Self Pay Address: [place], [place] Care Teams Sales Representative Aircraft Relationship Specialty Start Date End Date Darvin Harden MD [address] [facility] [address] [place] [address] PCP - General 07/11/19
--- OUTSIDE RECORDS SUMMARY | 2025-06-06 11:46 | XMS_ITS | Encounter Summary ---
Author Organization [facility] Facility Care Team Providers Care Water Purifier Operator Name Role Phone Alee Elizondo Primary Care Provider + [phone] Sharan Linton MD Unavailable [phone] Taisha Gomez MD Unavailable [phone] Parag Soto MD Unavailable [phone] RaziaMartha singh MD Unavailable [phone] Puneet Uribe MD Unavailable [phone] Shama Hines MD Unavailable Artis Grewal MD Unavailable [phone] Harrison Pena RN Unavailable +[phone] Nafisa Gregg RN Unavailable [phone] Tho Kelsey MD Primary Care Provider [phone] Alee Elizondo Primary Care Provider + [phone] Amy Mayes NP Unavailable [phone] Shailesh Dunn MD Unavailable [phone] Sangita Farrar Unavailable [phone] Timi Cox MD Unavailable [phone] Teofilo Gongora MD Unavailable [phone] Allie East LPN Unavailable Encounter Details Date Type Department Care Team (Latest Contact Info) Description 09/29/2015 Orders Only [facility] CLINCONV Provider, MD Tania [address] [place] [address] Social History Tobacco Use Types Packs/Day Years Used Date Smoking Tobacco: Never Assessed Comments Unknown Sex and Gender Information Value Date Recorded Sex Assigned at Not on file Legal Sex Female 8:04 PM BOX FABRICATOR Gender Identity Female 02/15/2020 6:08 PM CDT [...] COVID: Suspected 08/13/2021 08/14/2021 08/14/2021 3:06 AM BOX FABRICATOR COVID: Suspected 08/14/2021 08/14/2021 08/15/2021 3:05 AM BOX FABRICATOR COVID: Suspected 08/14/2021 08/14/2021 08/15/2021 6:25 AM BOX FABRICATOR COVID: Suspected 06/02/2023 06/02/2023 06/02/2023 7:25 PM BOX FABRICATOR COVID: Suspected 07/26/2023 07/26/2023 07/26/2023 3:10 PM BOX FABRICATOR COVID: Suspected 09/25/2024 09/25/2024 09/25/2024 11:03 AM CDT Influenza, adult 09/25/2024 09/25/2024 10/02/2024 3:05 AM CDT COVID: Suspected 10/23/2024 10/23/2024 10/23/2024 1:15 PM CDT COVID: Suspected 12/03/2024 12/03/2024 12/03/2024 10:09 PM CDT documented as of this encounter Care Teams Water Purifier Operator Relationship Specialty Start Date End Date Alee Elizondo PA [address] [place] [address] PCP - General Internal Medicine 02/01/17 06/29/23 Tho Kelsey MD [address] [place] [address] [address] [place] [address] PCP - General Family Medicine 06/30/23 07/04/23 Alee Elizondo PA [address] [place] [address] PCP - General Internal Medicine 07/05/23 Sharan Linton MD [address] [place] [address] Referring Physician Gastroenterology 10/31/18 Taisha Gomez MD [address] [facility] [address] [place], [place] [id number] Referring Physician Pulmonary Disease 10/31/18 12/23/20 Parag Soto MD [address] [place] [address] Referring Physician Rheumatology 10/31/18 12/23/20 Martha Starks MD [address] [place] [address] Consulting Physician Cardiology 12/24/20 Puneet Uribe MD [address] [place] [address] Consulting Physician Rheumatology 12/24/20 01/29/21 Shama Hines MD 47[address] [facility] [address] [place] [address] Consulting Physician Pain Management 01/19/21 Artis Grewal MD [address] [place] [address] Consulting Physician Rheumatology 01/30/21 Harrison Pena RN [address] [place] [address] Wire Frame Maker 05/30/23 09/04/23 Nafisa Gregg RN [address] [place] [address] [address] [place] [address] Wire Frame Maker 06/06/23 06/12/23 Amy Mayes NP [address] [place] [address] [address] [place] [address] Nurse Practitioner Cardiovascular Disease 04/20/24 Shailesh Dunn MD [address] [facility] 200 [place] [address] Consulting Physician Pulmonary Disease 04/20/24 Sangita Farrar PA [address] [place] [address] Physician Manager Behavior Rheumatology 05/15/24 Timi Cox MD [address] [phone] [place] [address] Surgeon Colon and Rectal Surgery 01/08/25 Teofilo Gongora MD [address] [facility] [phone] [place] [address] Urologist Urology 01/08/25 Allie East, DOREEN [address] [place] [address] [address] [place] [address] Wire Frame Maker 05/21/25 05/21/25 documented as of this encounter
--- OUTSIDE RECORDS SUMMARY | 2025-06-06 11:46 | XMS_ITS | Encounter Summary ---
Author Organization [facility] Address [address] [place] [address] Care Team Providers Care Complaints Coordinator Name Role Phone Sharan Linton MD Unavailable [phone] Martha Starks MD Unavailable [phone] Shama Hines MD Unavailable Artis Grewal MD Unavailable [phone] Alee Elizondo Primary Care Provider [phone] Amy Mayes NP Unavailable +[phone] Shailesh Dunn MD Unavailable [phone] Sangita Farrar Unavailable Timi Cox MD Unavailable [phone] Teofilo Gongora MD Unavailable [phone] Allie East LPN Unavailable [phone] Encounter Details Date Type Department Care Team (Late st Contact Info) Description 11/08/2024 Imaging Exam [facility] Family Medicine [address] [place] [address] Alee Elizondo PA [address] [place] [address] Social History Tobacco Use Types [...] any clubs o r organizations such as samaritan groups, unions, fraternal or athletic groups, or [...] were you homeless or living in a snf (including now)? No 05/30/2024 Personal Safety Answer Date Recorded Have you ever been in or are you currently in a harmful physical or emotional relationship or is someone making you feel afraid or unsafe? Denies 05/30/2024 Comments No Sex and Gender Information Value Date Recorded Sex Assigned at Not on file Legal Sex Female 8:04 PM CERTIFIED PHARMACIST ASSISTANT Gender Identity Female 02/15/2020 6:08 PM CDT Sexual Orientation Not on file documented as of this encounter Plan of Treatment Not on file documented as of this encounter Visit Diagnoses Not on filedocumented in this encounter Additional Health Concerns Infection Onset Date Last Indicated Resolved Time COVID: Suspected 12/03/2024 12/03/2024 12/03/2024 10:09 PM CDT documented as of this encounter Care Teams Complaints Coordinator Relationship Specialty Start Date End Date Alee Elizondo PA [address] [place] [address] PCP - General Internal Medicine 07/05/23 Sharan Linton MD Referring Physician Gastroenterology 10/31/18 Martha Starks MD Consulting Physician Cardiology 12/24/20 Shama Hines MD [address] [facility] [address] Consulting Physician Pain Management 01/19/21 Artis Grewal MD [address] [place] [address] Consulting Physician Rheumatology 01/30/21 Amy Mayes NP [address] [place] [address] Nurse Practitioner Cardiovascular Disease 04/20/24 Shailesh Dunn MD [address] [address] Consulting Physician Pulmonary Disease 04/20/24 Sangita Farrar PA [address] [place] [address] Physician Consumer Relations Complaint Clerk Rheumatology 05/15/24 Timi Cox MD [address] [phone] [place] [address] Surgeon Colon and Rectal Surgery 01/08/25 Teofilo Gongora MD [address] [id number] [place] [address] Urologist Urology 01/08/25 Allie East LPN [address] [place] [address] [address] [place] [address] Flat Cutter 05/21/25 05/21/25 documented as of this encounter
--- OUTSIDE RECORDS SUMMARY | 2025-06-06 11:46 | XMS_ITS | Encounter Summary ---
Author Organization [facility] Care Team Providers Care Gluten Settling Tender Name Role Phone Alee Elizondo Primary Care Provider + [phone] Sharan Linton MD Unavailable [phone] Taisha Gomez MD Unavailable [phone] Parag Soto MD Unavailable [phone] RaziaMartha singh MD Unavailable [phone] Puneet Uribe MD Unavailable [phone] Shama Hines MD Unavailable Artis Grewal MD Unavailable [phone] Harrison Pena RN Unavailable +[phone] Nafisa Gregg RN Unavailable [phone] Tho Kelsey MD Primary Care Provider [phone] Alee Elizondo Primary Care Provider + [phone] Amy Mayes NP Unavailable [phone] Shailesh Dunn MD Unavailable [phone] Sangita Farrar Unavailable [phone] Timi Cox MD Unavailable [phone] Teofilo Gongora MD Unavailable [phone] Allie East LPN Unavailable Encounter Details Date Type Department Care Team (Latest Contact Info) Description 04/19/2016 Orders Only [facility], [facility] [place] [address] Social History Tobacco Use Types Packs/Day Years Used Date Smoking Tobacco: Never Alcohol Use Standard Drinks/Week Comments No 0 (1 standard drink = 0.6 oz pur e alcohol) Comments Unknown Sex and Gender Information Value Date Recorded Sex Assigned at Not on file Legal Sex Female 8:04 PM PROBATION MANAGER Gender Identity Female 02/15/2020 6:08 PM [...] COVID: Suspected 08/13/2021 08/14/2021 08/14/2021 3:06 AM PROBATION MANAGER COVID: Suspected 08/14/2021 08/14/2021 08/15/2021 3:05 AM PROBATION MANAGER COVID: Suspected 08/14/2021 08/14/2021 08/15/2021 6:25 AM PROBATION MANAGER COVID: Suspected 06/02/2023 06/02/2023 06/02/2023 7:25 PM PROBATION MANAGER COVID: Suspected 07/26/2023 07/26/2023 07/26/2023 3:10 PM PROBATION MANAGER COVID: Suspected 09/25/2024 09/25/2024 09/25/2024 11:03 AM CDT Influenza, adult 09/25/2024 09/25/2024 10/02/2024 3:05 AM CDT COVID: Suspected 10/23/2024 10/23/202410/2310/23/2024 1:15 PM CDT COVID: Suspected 12/03/2024 12/03/2024 12/03/2024 10:09 PM CDT documented as of this encounter Care Teams Gluten Settling Tender Relationship Specialty Start Date End Date Alee Elizondo PA [address] [place] [address] PCP - General Internal Medicine 02/01/17 06/29/23 Tho Kelsey MD [address] [place] [address] [address] [place] [address] PCP - General Family Medicine 06/30/23 07/04/23 Alee Elizondo PA [address] [place] [address] PCP - General Internal Medicine 07/05/23 Sharan Linton MD [address] [place] [address] Referring Physician Gastroenterology 10/31/18 Taisha Gomez MD [address] [place] [address] Referring Physician Pulmonary Disease 10/31/18 12/23/20 Parag Soto MD [address] [place] [address] Referring Physician Rheumatology 10/31/18 12/23/20 Martha Starks MD [address] [place] [address] Consulting Physician Cardiology 12/24/20 Puneet Uribe MD [address] [facility] [address] [place] [address] Consulting Physician Rheumatology 12/24/20 01/29/21 Shama Hines MD [address] [facility] 230 [place] [address] Consulting Physician Pain Management 01/19/21 Artis Grewal MD [address] [place] [address] Consulting Physician Rheumatology 01/30/21 Harrison Pena RN [address] [place] [address] Cast Associate 05/30/23 09/04/23 Nafisa Gregg RN [address] [facility] 300 [place] [address] Cast Associate 06/06/23 06/12/23 Amy Mayes NP [address] [place] [address] 300 [place] [address] Nurse Practitioner Cardiovascular Disease 04/20/24 Shailesh Dunn MD [address] [facility] 200 [place] [address] Consulting Physician Pulmonary Disease 04/20/24 Sangita Farrar PA [address] [place] [address] Physician Sportspersons Rheumatology 05/15/24 Timi Cox MD [address] [facility] [phone] [place] [address] Surgeon Colon and Rectal Surgery 01/08/25 Teofilo Gongora MD [address] [id number] [place] [address] Urologist Urology 01/08/25 Allie East LPN [address] [place] [address] [address] [place] [address] Cast Associate 05/21/25 05/21/25 documented as of this encounter
--- OUTSIDE RECORDS SUMMARY | 2025-06-06 11:47 | XMS_ITS | Encounter Summary ---
Author Organization [facility] Healthcare Address [address] [place] [address] Care Team Providers Care Director Medical Affairs Name Role Phone Sharan Linton MD Unavailable [phone] Martha Starks MD Unavailable [phone] Shama Hines MD Unavailable Artis Grewal MD Unavailable [phone] Alee Elizondo Primary Care Provider [phone] Amy Mayes NP Unavailable [phone] Shailesh Dnun MD Unavailable [phone] Sangita Farrar Unavailable [phone] Timi Cox MD Unavailable [phone] Teofilo Gongora MD Unavailable [phone] Encounter Details Date Type Department Care Team (Latest Contact Info) Description 05/27/2025 Results Follow-Up [facility] Family Medicine [address] [place] [address] Alee Elizondo PA [address] [place] [address] POCT urinalysis dipstick, Urine culture Urine, clean voided, Comprehensive metabolic panel Social History Tobacco Use Types Packs/Day Years [...] in a mcfp (including now)? No 05/30/2024 Social Connection and [...] living in a mcfp (including now)? 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 [address] [place] [address] Consulting Physician Pain Management 01/19/21 Artis Grewal MD [address] [place] [address] Consulting Physician Rheumatology 01/30/21 Amy Mayes NP [address] [facility] 500 [place] [address] Nurse Practitioner Cardiovascular Disease 04/20/24 Shailesh Dunn MD [address] [address] Consulting Physician Pulmonary Disease 04/20/24 Sangita Farrar PA [address] [place] [address] Physician Milk Route Deliverer Rheumatology 05/15/24 Timi Cox MD [address] [phone] [place] [address] Surgeon Colon and Rectal Surgery 01/08/25 Teofilo Gongora MD [address] [phone] [place] [address] Urologist Urology 01/08/25 documented as of this encounter
--- OUTSIDE RECORDS SUMMARY | 2025-06-06 11:47 | XMS_ITS | Encounter Summary ---
Author Organization [facility] Healthcare Address [address] [place] [address] Care Team Providers Care Pediatric Genetic Counselor Name Role Phone Sharan Linton MD Unavailable [phone] Martha Starks MD Unavailable [phone] Shama Hines MD Unavailable Artis Grewal MD Unavailable [phone] Alee Elizondo Primary Care Provider [phone] Amy Mayes NP Unavailable [phone] Shailesh Dunn MD Unavailable [phone] Sangita Farrar Unavailable [phone] Timi Cox MD Unavailable [phone] Teofilo Gongora MD Unavailable [phone] Encounter Details Date Type Department Care Team (Late st Contact Info) Description 06/06/2025 Orders Only [facility] Family Medicine [address] [place] [address] Alee Elizondo PA [address] [place] [address] Urinary tract infection associated with catheterization of urinary tract, unspecified indwelling urinary catheter type, sequela (Primary Dx) Social History Tobacco Use Types Packs/Day Years [...] in a jail (including now)? No 05/30/2024 Social Connection and [...] living in a jail (including now)? No 05/20/2025 [facility] Utilities Answer Date Recorded In the past [...] on file Legal Sex Female 8:04 PM YARD CONDUCTOR Gender Identity Female 02/15/2020 6:08 PM CDT Sexual Orientation Not on file documented as of this encounter Plan of Treatment Not on file documented as of this encounter Visit Diagnoses Diagnosis Urinary tract infection associated with catheterization of urinary tract, unspecified indwelling urinary catheter type, sequela- Primary documented in this encounter Care Teams Pediatric Genetic Counselor Relationship Specialty Start Date End Date Alee Elizondo PA [address] [facility] 500 [place] [address] PCP - General Internal Medicine 07/05/23 Sharan Linton MD Referring Physician Gastroenterology 10/31/18 Martha Starks MD Consulting Physician Cardiology 12/24/20 Shama Hines MD 47[address] [email or web address] [address] [place] [address] Consulting Physician Pain Management 01/19/21 Artis Grewal MD [address] [place] [address] Consulting Physician Rheumatology 01/30/21 Amy Mayes NP [address] [facility] 500 [place] [address] Nurse Practitioner Cardiovascular Disease 04/20/24 Shailesh Dunn MD [address] [facility] [address] [address] Consulting Physician Pulmonary Disease 04/20/24 Sangita Farrar PA [address] [place] [address] Physician Rivet Tester Rheumatology 05/15/24 Timi Cox MD [address] [phone] [place] [address] Surgeon Colon and Rectal Surgery 01/08/25 Teofilo Gongora MD [address] [id number] [place] [address] Urologist Urology 01/08/25 documented as of this encounter
--- OUTSIDE RECORDS SUMMARY | 2025-06-06 11:47 | XMS_ITS | Encounter Summary ---
Author Organization [facility] Healthcare Address [address] [place] [address] Care Team Providers Care Job Hand Name Role Phone Sharan Linton MD Unavailable Martha Starks MD Unavailable Shama Hines MD Unavailable Artis Grewal MD Unavailable [phone] Alee Elizondo Primary Care Provider [phone] Amy Mayes NP Unavailable Shailesh Dunn MD Unavailable [phone] Sangita Farrar Unavailable Timi Cox MD Unavailable [phone] Teofilo Gongora MD Unavailable [phone] Allie East LPN Unavailable Reason for Visit * Reason Onset Date Comments JUSTIN Questions 05/20/2025 Encounter Details Date Type Department Care Team (Late st Contact Info) Description 05/20/2025 Telephone [facility] Family Medicine [address] [place] [address] Alee Elizondo PA [address] [facility] [address] [place] [address] JUSTIN Questions Social History Tobacco Use Types Packs/Day Years [...] you attend chur ch or samaritan services? 1 to 4 times per year [...] in the past 12 [facility], were you homeless or living in [...] you attend chur ch or samaritan services? 1 to 4 times per year [...] in the past 12 m [facility], were you homeless or living in a care home (including now)? No 05/20/[address] [facility] Utilities Answer [...] on file Legal Sex Female 8:04 PM FROZEN FOOD SELECTOR Gender Identity Female 02/15/2020 6:08 PM CDT [...] RN Mental Status 0 05/20/2025 7:30 AM FROZEN FOOD SELECTOR Leola Cowan RN Eckert Fall Risk Score (Score >= 45 places fall precaution order) 35 05/20/2025 7:30 AM Leola Fuentes RN Prior Fall Event (Autopopulated from EMR) None found 05/20/2025 7:30 AM Erica Fuentes RN * Oren Scale Question Answer Date of Assessment Author Sensory Perceptions 4 05/20/2025 7:30 AM CS Leola Ross RN Moisture 4 05/20/2025 7:30 AM Leola Tejada RN Activity 4 05/20/2025 7:30 AM Leola Tejada RN Mobility 3 05/20/2025 7:30 AM Leola Tejada RN Nutrition 3 05/20/2025 7:30 AM OCHOA dillard, Leola Churchill RN Friction and Shear 3 05/20/2025 7:30 AM Leola Fuentes RN Oren Scale Score 21 05/20/2025 7:30 AM Leola Fuentes RN * BP Location Answer Date of Assessment Author Right arm 05/20/2025 10:35 AM FROZEN FOOD SELECTOR Johan Larson * MAP (mmHg) Answer Date of Assessment Author 77 05/20/2025 10:35 AM Johan Palacios * Fall Risk Interventions Question Answer Date [...] 7:30 A M Leola Fuentes RN * B.M.A.T. - Bedside Mobility Assessment Tool for Nurses Question Answer Date of Assessment Author Is patient able to participate in the BMAT? Yes 05/20/2025 7:30 AM Mary Grace Fuentes RN BMAT Level Level 4 - Green 05/20/2025 7:30 AM Leola Arias RN * Pressure Injury Prevention Question Answer Date of Assessment Author Pressure Ulcer Prevention Interventions Keep skin clean and dry (Sensory Perception/Moisture ) 05/20/2025 7:30 AM Leola Fuentes RN * Integumentary Question Answer Date of Assessment Author Skin Color Appropriate for ethnicity 05/20/2025 7:30 AM Leola Fuentes RN Skin Condition/Temp Warm;Dry 05/20/2025 7:30 AM Leola Oliver RN Skin Integrity Redness 05/20/2025 7:30 AM Leola Rviera RN Skin Turgor Non-tenting 05/20/2025 7:30 AM Leola Tejada RN Integumentary (WDL) X 05/20/2025 7:30 AM Leola Oliver RN Skin Location Abdomen 05/20/2025 7:30 AM Leola Ha RN * Question Answer Date of Assessment Author Percent Meal Eaten (%) 75 05/20/2025 12:55 P M Suni Palacios Feeding Level of Assistance Able to feed self 05/20/2025 12:55 PM Suni Palacios * BP Location Answer Date of Assessment Author Right arm 05/20/2025 10:35 AM Johan Palacios * Fall Risk Interventions Question Answer Date [...] For Exception(s) independent 05/20/2025 7:30 A M FROZEN FOOD SELECTOR Leola Multani RN * Hygiene Question Answer Date of Assessment Author Oral Care Lip moisturizer 05/20/2025 8:49 AM FROZEN FOOD SELECTOR Suni Larson Hygiene Level of Assistance Independent 05/20/2025 8:49 AM FROZEN FOOD SELECTOR Suni Larson Toileting: Level of assistance Independent 05/20/2025 5:00 AM FROZEN FOOD SELECTOR Paco Driscoll RN Reason not bathed/showered Patient/family refused bath/shower 05/20/2025 4:00 AM FROZEN FOOD SELECTOR Naga Olson Perineal Care Alia Care;Lyles Care 05/20/2025 8:49 AM FROZEN FOOD SELECTOR Suni Larson Bath Bathed/showered with chlorhexidine (CHG) 05/20/2025 8:49 AM FROZEN FOOD SELECTOR Suni Larson documented as of this encounter Mental Status * Question Answer Entry Date Author Neuro (WDL) WDL 05/20/2025 7:30 AM FROZEN FOOD SELECTOR Leola Butterfield RN documented in this encounter Miscellaneous Notes * Telephone Encounter - Taisha Koch MA - 05/20/2025 2:41 PM CST JUSTIN Questions (Message from [facility] Access Center-Home Day Care Provider): Has patient been discharged at time of call? Yes Date Admitted: 05/17/25 Date Discharged: 05/20/25 Facility Admitted To: [facility] Reason for Stay? Kidney failure If prescribed new medications, do you have any questions or concerns? No Do you have enough medication to get you to your follow-up appointment? Yes Since being released do you feel better, the same, or worse? Better Date of JUSTIN Appointment: 05/24/25 Do you have transportation to the appointment? Yes Additional Comments: none Does message need to be routed? Yes-FYI Only EN FOOD SELECTOR documented in this encounter Plan of Treatment Not on file documented as of this encounter Visit Diagnoses Not on filedocumented in this encounter Care Teams Job Hand Relationship Specialty Start Date End Date Alee Elizondo PA [address] [place] [address] PCP - General Internal Medicine 07/05/23 Sharan Linton MD Referring Physician Gastroenterology 10/31/18 Martha Starks MD Consulting Physician Cardiology 12/24/20 Shama Hines MD 4700 [facility] [address] [address] Consulting Physician Pain Management 01/19/21 Artis Grewal MD [address] [place] [address] Consulting Physician Rheumatology 01/30/21 Amy Mayes NP [address] [place] [address] Nurse Practitioner Cardiovascular Disease 04/20/24 Shailesh Dunn MD [address] [address] Consulting Physician Pulmonary Disease 04/20/24 Sangita Farrar PA [address] [place] [address] Physician Wastewater Analyst Lab Analyst Rheumatology 05/15/24 Timi Cox MD [address] [phone] [place] [address] Surgeon Colon and Rectal Surgery 01/08/25 Teofilo Gongora MD [address] [phone] [place] [address] Urologist Urology 01/08/25 Allie East, DOREEN [address] [facility] [address] [place] [address] Rehab Aide 05/21/25 05/21/25 documented as of this encounter
--- OUTSIDE RECORDS SUMMARY | 2025-06-06 11:47 | XMS_ITS | Encounter Summary ---
Author Organization [facility] Healthcare Address [address] [place] [address] Care Team Providers Care Farmworkers Name Role Phone Sharan Linton MD Unavailable [phone] Martha Starks MD Unavailable +[phone] Shama Hines MD Unavailable Artis Grewal MD Unavailable +[phone] Alee Elizondo Primary Care Provider +[phone] Amy Mayes NP Unavailable +[phone] Shailesh Dunn MD Unavailable +[phone] Sangita Farrar Unavailable +[phone] Timi Cox MD Unavailable [phone] Teofilo Gongora MD Unavailable + [phone] Reason for Visit * Reason Onset Date Comments Symptom Based Call 06/06/2025 Medical Question/Miscellaneous 06/06/2025 Encounter Details Date Type Department Care Team (Late st Contact Info) Description 06/06/2025 Telephone [facility] Medical [facility] Family Medicine [address] [place] [address] Alee Elizondo PA [address] [place] [address] Symptom Based Call; Medical Question/Miscellaneous Social History Tobacco Use Types [...] often do you attend chur ch or buddhism services? 1 to 4 times per year [...] [facility] the [facility] or living in [...] often do you attend chur ch or buddhism services? 1 to 4 times per year [...] any time in the past [facility], were you homeless or living in a senior living (including now)? 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 Gender Identity Female 02/15/2020 6:08 PM CDT Sexual Orientation Not on file documented as of this encounter Ordered Prescriptions Prescription Sig Dispense Quantity Refills Last Filled Start Date End Date levoFLOXacin (LEVAQUIN) 500 mg tabletIndications: Urinary Tract/Genitourinar y Infection Take 1 tablet (500 mg total) by mouth daily for 5 days 5 tablet 06/06/2025 06/11/2025 documented in this encounter Miscellaneous Notes * Telephone Encounter - Taisha Koch MA - 06/06/2025 8:22 AM CST Medical Question/Miscellaneous Caller???s Concern: Patient called to says she was suppose to give a urine sample this morning however, her car will not start. She will try again tomorrow. Does message need to be routed? Yes-FYI Only DINE RECOVERY OPERATOR * Telephone Encounter - Caitlyn Hua MA - 06/06/2025 7:54 AM CST Pt coming in for a nurse visit for urine DINE RECOVERY OPERATOR * Telephone Encounter - Marcelino Jazminedianne Childers - 06/06/2025 7:42 AM CST Symptom Based Call Chief Complaint(s): vomiting, pelvic pain, and left side of her back pain Duration: started this morning What type of symptom(s) is the patient experiencing? Non-Emergent. Is this a new or reoccurring symptom(s)? Reoccurring What have you tried to help your symptom(s)? Nothing Why was appointment not scheduled? Patient seeking care without an appointment; appointment was offered by . Additional Comments: Patient states she was hospitalized last month for a kidney infection and sepsis. Her infection started off with the same symptoms. She would like to know if pcp will order an urine test? Does message need to be routed? Yes-Action Needed DINE RECOVERY OPERATOR documented in this encounter Plan of Treatment Scheduled Orders Name Type Priority Associated Diagnoses Orde r Schedule CBC with auto differential Lab Routine Left flank pain Urinary tract infection without hematuria, site unspecified Expected: 06/06/2025, Expires: 06/06/2026 Comprehensive metabolic panel Lab Routine Left flank pain Urinary tract infection without hematuria, site unspecified Expected: 06/06/2025, Expires: 06/06/2026 documented as of this encounter Visit Diagnoses Diagnosis Left flank pain- Primary Abdominal pain, unspecified site Urinary tract infection without hematuria, site unspecified documented in this encounter Care Teams Farmworkers Relationship Specialty Start Date End Date Alee Elizondo PA [address] [place] [address] PCP - General Internal Medicine 07/05/23 Sharan Linton MD Referring Physician Gastroenterology 10/31/18 Martha Starks MD Consulting Physician Cardiology 12/24/20 Shama Hines MD 4700 [facility] [address] Consulting Physician Pain Management 01/19/21 Artis Grewal MD [address] [place] [address] Consulting Physician Rheumatology 01/30/21 Amy Mayes NP [address] [address] Nurse Practitioner Cardiovascular Disease 04/20/24 Shailesh Dunn MD [address] [address] Consulting Physician Pulmonary Disease 04/20/24 Sangita Farrar PA [address] [place] [address] Physician Soaker Rheumatology 05/15/24 Timi Cox MD [address] [id number] [place] [address] Surgeon Colon and Rectal Surgery 01/08/25 Teofilo Gongora MD [address] [id number] [place] [address] Urologist Urology 01/08/25 documented as of this encounter
--- OUTSIDE RECORDS SUMMARY | 2025-06-06 11:47 | XMS_ITS | Clinical Summary ---
Author Organization [facility] Address [address] [place] [address] Care Team Providers Care Industrial Maintenance Technician Name Role Phone Unavailable Primary Care Provider [...] Mammogram Screening 1995 COVID-19 Vaccine ( season) 2025 04/14/2023, 03/30/2022, 10/21/2021 Influenza Adult (#1) 2025 03/30/2022, 04/10/2020, 03/22/2019, Additional history exists RSV Immunization or 60+ Years (1 - 1-dose 75+ series) 2030 DTaP, Tdap and Td Vaccines (3 - Td or Tdap) 03/08/2031 03/08/2021, 08/20/2019 Zoster Vaccines Completed 12/13/2017, 12/02, 10/10/2017 Pneumococcal Vaccine: 50+ Years Completed 12/21/2022, 07/06/2014, 08/21/2009 Dexa Scan (General) Completed 04/12/2023 Hepatitis A Vaccines Aged Out No long er eligible based on patient's age to complete this topic Meningococcal B Vaccine Aged Out No l onger eligible based on patient's age to complete this topic Meningococcal Vaccine Aged Out No tammy beni eligible based on patient's age to complete this topic RSV Immunizations Under 20 Months Aged Out No longer eligible based on patient's age to complete this topic
--- OUTSIDE RECORDS SUMMARY | 2025-06-06 11:48 | XMS_ITS | Encounter Summary ---
Author Organization [facility] Facility Care Team Providers Care Industrial Gas Fitter Name Role Phone Alee Elizondo Primary Care Provider + [phone] Sharan Linton MD Unavailable [phone] Taisha Gomez MD Unavailable +[phone] Parag Soto MD Unavailable [phone] RaziaMartha singh MD Unavailable +[phone] Puneet Uribe MD Unavailable +[phone] Shama Hines MD Unavailable Artis Grewal MD Unavailable [phone] Harrison Pena RN Unavailable +[phone] Nafisa Gregg RN Unavailable +[phone] Tho Kelsey MD Primary Care Provider +[phone] Alee Elizondo Primary Care Provider + [phone] Amy Mayes NP Unavailable +[phone] Shailesh Dunn MD Unavailable [phone] Sangita Farrar Unavailable +[phone] Timi Cox MD Unavailable [phone] Teofilo Gongora MD Unavailable +[phone] Allie East LPN Unavailable Encounter Details Date Type Department Care Team (Latest Contact Info) Description 06/28/2016 Orders Only [facility] CLINCONV Provider, MD Tania [facility] [place] [address] Social History Tobacco Use Types Packs/Day Years Used Date Smoking Tobacco: Never Alcohol Use Standard Drinks/Week Comments No 0 (1 standard drink = 0.6 oz pur e alcohol) Comments Unknown Sex and Gender Information Value Date Recorded Sex Assigned at Not on file Legal Sex Female 8:04 PM VMWARE SYSTEMS ADMINISTRATOR Gender Identity Female 02/15/2020 6:08 PM CDT Sexual Orientation Not on file documented as of this encounter Plan of Treatment Not on file documented as of this encounter Procedures Procedure Name Priority Date/Time Associated Diagnosis Comments SCAN - LABS 06/29/2016 12:00 AM VMWARE SYSTEMS ADMINISTRATOR documented in this encounter Results * SCAN - LABS (06/29/2016 12:00 AM VMWARE SYSTEMS ADMINISTRATOR) Narrative 06/29/2016 12:00 AM VMWARE SYSTEMS ADMINISTRATOR Ordered by an unspecified provider. Historical Provider Final Res ult documented in this encounter Visit Diagnoses Not on filedocumented in this encounter Additional Health Concerns Infection Onset Date Last Indicated Resolved Time COVID: Suspected 08/13/2021 08/14/2021 08/14/2021 3:06 AM VMWARE SYSTEMS ADMINISTRATOR COVID: Suspected 08/14/2021 08/14/2021 08/15/2021 3:05 AM VMWARE SYSTEMS ADMINISTRATOR COVID: Suspected 08/14/2021 08/14/2021 08/15/2021 6:25 AM VMWARE SYSTEMS ADMINISTRATOR COVID: Suspected 06/02/2023 06/02/2023 06/02/2023 7:25 PM VMWARE SYSTEMS ADMINISTRATOR COVID: Suspected 07/26/2023 07/26/2023 07/26/2023 3:10 PM VMWARE SYSTEMS ADMINISTRATOR COVID: Suspected 09/25/2024 09/25/2024 09/25/2024 11:03 AM CDT Influenza, adult 09/25/2024 09/25/2024 10/02/2024 3:05 AM CDT COVID: Suspected 10/23/2024 10/23/2024 10/23/2024 1:15 PM CDT COVID: Suspected 12/03/2024 12/03/2024 12/03/2024 10:09 PM CDT documented as of this encounter Care Teams Industrial Gas Fitter Relationship Specialty Start Date End Date Alee Elizondo PA [address] [place] [address] PCP - General Internal Medicine 02/01/17 06/29/23 Tho Kelsey MD [address] [place] [address] [address] [place] [address] PCP - General Family Medicine 06/30/23 07/04/23 Alee Elizondo PA [address] [place] [address] PCP - General Internal Medicine 07/05/23 Sharan Linton MD [address] [place] [address] Referring Physician Gastroenterology 10/31/18 Taisha Gomez MD [address] [place], [place] [address] Referring Physician Pulmonary Disease 10/31/18 12/23/20 Parag Soto MD [address] [place] [address] Referring Physician Rheumatology 10/31/18 12/23/20 Martha Starks MD [address] [place] [address] Consulting Physician Cardiology 12/24/20 Puneet Uribe MD [address] [facility] 110 [facility] 110 [place] [address] Consulting Physician Rheumatology 12/24/20 01/29/21 Shama Hines MD 4700 [facility] [address] [place] [address] Consulting Physician Pain Management 01/19/21 Artis Grewal MD [address] [place] [address] Consulting Physician Rheumatology 01/30/21 Harrison Pena RN [address] [place] [address] Cut Off Machine Helper 05/30/23 09/04/23 Nafisa Gregg, JULIUS [address] [place] [address] [address] [place] [address] Cut Off Machine Helper 06/06/23 06/12/23 Amy Mayes NP [address] [place] [address] 300 [place] [address] Nurse Practitioner Cardiovascular Disease 04/20/24 Shailesh Dunn MD 4600 [facility] 200 [place] [address] Consulting Physician Pulmonary Disease 04/20/24 Sangita Farrar PA [address] [place] [address] Physician Pick Up Driver Rheumatology 05/15/24 Timi Cox MD [address] [facility] [phone] [place] [address] Surgeon Colon and Rectal Surgery 01/08/25 Teofiol Gongora MD [address] [id number] [place] [address] Urologist Urology 01/08/25 Allie East LPN [address] [place] [address] [address] [place] [address] Cut Off Machine Helper 05/21/25 05/21/25 documented as of this encounter
--- OUTSIDE RECORDS SUMMARY | 2025-06-06 11:48 | XMS_ITS | Encounter Summary ---
Author Organization [facility] Facility Care Team Providers Care Appointment Specialist Name Role Phone Alee Elizondo Primary Care Provider + [phone] Sharan Linton MD Unavailable +[phone] Taisha Gomez MD Unavailable [phone] Parag Soto MD Unavailable [phone] RaziaMartha singh MD Unavailable [phone] Puneet Uribe MD Unavailable +[phone] Shama Hines MD Unavailable Artis Grewal MD Unavailable +[phone] Harrison Pena RN Unavailable +[phone] Nafisa Gregg RN Unavailable +[phone] Tho Kelsey MD Primary Care Provider +[phone] Alee Elizondo Primary Care Provider + [phone] Amy Mayes NP Unavailable +[phone] Shailesh Dunn MD Unavailable [phone] Sangita Farrar Unavailable +[phone] Timi Cox MD Unavailable [phone] Teofilo Gongora MD Unavailable +[phone] Allie East LPN Unavailable Encounter Details Date Type Department Care Team (Latest Contact Info) Description 08/10/2017 Orders Only [facility] CLINCONV Provider, MD Tania [address] [place] [address] Social History Tobacco Use Types Packs/Day Years Used Date Smoking Tobacco: Never Smokeless Tobacco: Never Alcohol Use Standard Drinks/Week Comments No 0 (1 standard drink = 0.6 oz pur e alcohol) Comments Unknown Sex and Gender Information Value Date Recorded Sex Assigned at Not on file Legal Sex Female 8:04 PM MILK PROCESSING WORKER Gender Identity Female 02/15/2020 6:08 PM CDT Sexual Orientation Not on file documented as of this encounter Functional Status * BP Location Answer Date of Assessment Author Right arm 08/10/2017 11:26 AM MILK PROCESSING WORKER Allie Medina MA * BP Location Answer Date of Assessment Author Right arm 08/10/2017 11:26 AM MILK PROCESSING WORKER Allie Medina MA documented as of this encounter Plan of Treatment Not on file documented as of this encounter Procedures Procedure Name Priority Date/Time Associated Diagnosis Comments CARDIOLOGY REPORT 08/10/2017 12: 00 AM MILK PROCESSING WORKER documented in this encounter Results * CARDIOLOGY REPORT (08/10/2017 12:00 AM MILK PROCESSING WORKER) Anatomical Region Laterality Modality Other Narrative 08/10/2017 12:00 AM MILK PROCESSING WORKER Ordered by an unspecified provider. Historical Provider [facility] LEANDRA LANDRUM Final Result documented in this encounter Visit Diagnoses Not on filedocumented in this encounter Additional Health Concerns Infection Onset Date Last Indicated Resolved Time COVID: Suspected 08/13/2021 08/14/2021 08/14/2021 3:06 AM MILK PROCESSING WORKER COVID: Suspected 08/14/2021 08/14/2021 08/15/2021 3:05 AM MILK PROCESSING WORKER COVID: Suspected 08/14/2021 08/14/2021 08/15/2021 6:25 AM MILK PROCESSING WORKER COVID: Suspected 06/02/2023 06/02/2023 06/02/2023 7:25 PM MILK PROCESSING WORKER COVID: Suspected 07/26/2023 07/26/2023 07/26/2023 3:10 PM MILK PROCESSING WORKER COVID: Suspected 09/25/2024 09/25/2024 09/25/2024 11:03 AM CDT Influenza, adult 09/25/2024 09/25/2024 10/02/2024 3:05 AM CDT COVID: Suspected 10/23/2024 10/23/2024 10/23/2024 1:15 PM CDT COVID: Suspected 12/03/2024 12/03/2024 12/03/2024 10:09 PM CDT documented as of this encounter Care Teams Appointment Specialist Relationship Specialty Start Date End Date Alee Elizondo PA [address] [place] [address] PCP - General Internal Medicine 02/01/17 06/29/23 Tho Kelsey MD [address] [place] [address] DR [facility] 300 [place] [address] PCP - General Family Medicine 06/30/23 07/04/23 Alee Elizondo PA [address] [facility] [address] [place] [address] PCP - General Internal Medicine 07/05/23 Sharan Linton MD [address] [place] [address] Referring Physician Gastroenterology 10/31/18 Taisha Gomez MD [address] [place] [address] Referring Physician Pulmonary Disease 10/31/18 12/23/20 Parag Soto MD [address] [place] [address] Referring Physician Rheumatology 10/31/18 12/23/20 Martha Starks MD 1095 [facility] 500 [place] [address] Consulting Physician Cardiology 12/24/20 Puneet Uribe MD [address] [facility] 110 [facility] 110 [place] [address] Consulting Physician Rheumatology 12/24/20 01/29/21 Shama Hines MD 4700 [facility] 230 [place] [address] Consulting Physician Pain Management 01/19/21 Artis Grewal MD [address] [place] [address] Consulting Physician Rheumatology 01/30/21 Harrison Pena RN [address] [place] [address] Elementary Classroom Teacher 05/30/23 09/04/23 Nafisa Gregg, JULIUS [address] [place] [address] [facility] 300 [place] [address] Elementary Classroom Teacher 06/06/23 06/12/23 Amy Mayes, LELAND [address] [place] [address] [facility] 300 [place] [address] Nurse Practitioner Cardiovascular Disease 04/20/24 Shailesh Dunn MD 4600 [facility] 200 [place] [address] Consulting Physician Pulmonary Disease 04/20/24 Sangita Farrar PA [address] [place] [address] Physician New Product Trainer Rheumatology 05/15/24 Timi Cox MD [address] [id number] [place] [address] Surgeon Colon and Rectal Surgery 01/08/25 Teofilo Gonogra MD [address] [id number] [place] [address] Urologist Urology 01/08/25 Allie East, OIL BAY TECHNICIAN [address] [place] [address] [place] [address] Elementary Classroom Teacher 05/21/25 05/21/25 documented as of this encounter
--- OUTSIDE RECORDS SUMMARY | 2025-06-06 11:48 | XMS_ITS | Encounter Summary ---
Author Organization [facility] Facility Care Team Providers Care 1St Pressman Name Role Phone Alee Elizondo Primary Care Provider + [phone] Sharan Linton MD Unavailable [phone] Taisha Gomez MD Unavailable +[phone] Parag Soto MD Unavailable [phone] RaziaMartha singh MD Unavailable [phone] Puneet Uribe MD Unavailable +[phone] Shama Hines MD Unavailable Artis Grewal MD Unavailable +[phone] Harrison Pena RN Unavailable +[phone] Nafisa Gregg RN Unavailable +[phone] Tho Kelsey MD Primary Care Provider [phone] Alee Elizondo Primary Care Provider + [phone] Amy Mayes NP Unavailable +[phone] Shailesh Dunn MD Unavailable [phone] Sangita Farrar Unavailable +[phone] Timi Cox MD Unavailable [phone] Teofilo Gongora MD Unavailable +[phone] Allie East LPN Unavailable Encounter Details Date Type Department Care Team (Latest Contact Info) Description 01/08/2017 Orders Only [facility]G CLINCONV Provider, MD Tania [facility] [place] [address] Social History Tobacco Use Types Packs/Day Years Used Date Smoking Tobacco: Never Alcohol Use Standard Drinks/Week Comments No 0 (1 standard drink = 0.6 oz pur e alcohol) Comments Unknown Sex and Gender Information Value Date Recorded Sex Assigned at Not on file Legal Sex Female 8:04 PM LITHOGRAPHIC PHOTOGRAPHER Gender Identity Female 02/15/2020 6:08 PM CDT [...] COVID: Suspected 08/13/2021 08/14/2021 08/14/2021 3:06 AM LITHOGRAPHIC PHOTOGRAPHER COVID: Suspected 08/14/2021 08/14/2021 08/15/2021 3:05 AM LITHOGRAPHIC PHOTOGRAPHER COVID: Suspected 08/14/2021 08/14/2021 08/15/2021 6:25 AM LITHOGRAPHIC PHOTOGRAPHER COVID: Suspected 06/02/2023 06/02/2023 06/02/2023 7:25 PM LITHOGRAPHIC PHOTOGRAPHER COVID: Suspected 07/26/2023 07/26/2023 07/26/2023 3:10 PM LITHOGRAPHIC PHOTOGRAPHER COVID: Suspected 09/25/2024 09/25/2024 09/25/2024 11:03 AM CDT Influenza, adult 09/25/2024 09/25/2024 10/02/2024 3:05 AM CDT COVID: Suspected 10/23/2024 10/23/202410/2310/23/2024 1:15 PM CDT COVID: Suspected 12/03/2024 12/03/2024 12/03/2024 10:09 PM CDT documented as of this encounter Care Teams 1St Pressman Relationship Specialty Start Date End Date Alee Elizondo PA [address] [place] [address] PCP - General Internal Medicine 02/01/17 06/29/23 Tho Kelsey MD [address] [place] [address] [address] [place] [address] PCP - General Family Medicine 06/30/23 07/04/23 Alee Elizondo PA [address] [place] [address] PCP - General Internal Medicine 07/05/23 Sharan Linton MD [address] [place] [address] Referring Physician Gastroenterology 10/31/18 Taisha Gomez MD [address] [place] [address] Referring Physician Pulmonary Disease 10/31/18 12/23/20 Parag Soto MD [address] [place] [address] Referring Physician Rheumatology 10/31/18 12/23/20 Martha Starks MD [address] [place] [address] Consulting Physician Cardiology 12/24/20 Puneet Uribe MD [address] [facility] 110 [address] [place] [address] Consulting Physician Rheumatology 12/24/20 01/29/21 Sahma Hines MD 4700 [facility], [facility] 230 [place] [address] Consulting Physician Pain Management 01/19/21 Artis Grewal MD [address] [place] [address] Consulting Physician Rheumatology 01/30/21 aHrrison Pena RN [address] [place] [address] Rat Farmer 05/30/23 09/04/23 Nafisa Gregg RN 660 [facility] 300 [place] [address] Rat Farmer 06/06/23 06/12/23 Amy Mayes NP [address] [place] [address] 300 [place] [address] Nurse Practitioner Cardiovascular Disease 04/20/24 Shailesh Dunn MD 4600 [facility] 200 [place] [address] Consulting Physician Pulmonary Disease 04/20/24 Sangita Farrar PA [address] [place] [address] Physician Leather Crafter Rheumatology 05/15/24 Timi Cox MD [address] [facility] [id number] [place] [address] Surgeon Colon and Rectal Surgery 01/08/25 Teofilo Gongora MD [address] [id number] [place] [address] Urologist Urology 01/08/25 Allie East LPN [address] [place] [address] [address] [place] [address] Rat Farmer 05/21/25 05/21/25 documented as of this encounter
--- OUTSIDE RECORDS SUMMARY | 2025-06-06 11:48 | XMS_ITS | Encounter Summary ---
Author Organization [facility] Facility Care Team Providers Care Rubber Molder Name Role Phone Alee Elizondo Primary Care Provider + [phone] Sharan Linton MD Unavailable +[phone] Taisha Gomez MD Unavailable +[phone] Parag Soto MD Unavailable [phone] RaziaMartha singh MD Unavailable [phone] Puneet Uribe MD Unavailable [phone] Shama Hines MD Unavailable Artis Grewal MD Unavailable +[phone] Harrison Pena RN Unavailable +[phone] Nafisa Gregg RN Unavailable +[phone] Tho Kelsey MD Primary Care Provider [phone] Alee Elizondo Primary Care Provider + [phone] Amy Mayes NP Unavailable +[phone] Shailesh Dunn MD Unavailable [phone] Sangita Farrar Unavailable +[phone] Timi Cox MD Unavailable [phone] Teofilo Gongora MD Unavailable +[phone] Allie East LPN Unavailable Encounter Details Date Type Department Care Team (Latest Contact Info) Description 10/15/2016 Orders Only [facility] CLINCONV Provider, MD Tania [facility] [place] [address] Social History Tobacco Use Types Packs/Day Years Used Date Smoking Tobacco: Never Alcohol Use Standard Drinks/Week Comments No 0 (1 standard drink = 0.6 oz pur e alcohol) Comments Unknown Sex and Gender Information Value Date Recorded Sex Assigned at Not on file Legal Sex Female 8:04 PM SECOND OPERATOR Gender Identity Female 02/15/2020 6:08 PM [...] COVID: Suspected 08/13/2021 08/14/2021 08/14/2021 3:06 AM SECOND OPERATOR COVID: Suspected 08/14/2021 08/14/2021 08/15/2021 3:05 AM SECOND OPERATOR COVID: Suspected 08/14/2021 08/14/2021 08/15/2021 6:25 AM SECOND OPERATOR COVID: Suspected 06/02/2023 06/02/2023 06/02/2023 7:25 PM SECOND OPERATOR COVID: Suspected 07/26/2023 07/26/2023 07/26/2023 3:10 PM SECOND OPERATOR COVID: Suspected 09/25/2024 09/25/2024 09/25/2024 11:03 AM CDT Influenza, adult 09/25/2024 09/25/2024 10/02/2024 3:05 AM CDT COVID: Suspected 10/23/2024 10/23/202410/2310/23/2024 1:15 PM CDT COVID: Suspected 12/03/2024 12/03/2024 12/03/2024 10:09 PM CDT documented as of this encounter Care Teams Rubber Molder Relationship Specialty Start Date End Date Alee Elizondo PA [address] [place] [address] PCP - General Internal Medicine 02/01/17 06/29/23 Tho Kelsey MD [address] [place] [address] [address] [place] [address] PCP - General Family Medicine 06/30/23 07/04/23 Alee Elizondo PA [address] [place] [address] PCP - General Internal Medicine 07/05/23 Sharan Linton MD [address] [place] [address] Referring Physician Gastroenterology 10/31/18 Taisha Gomez MD [address] [place] [address] Referring Physician Pulmonary Disease 10/31/18 12/23/20 Parag Soto MD [address] [place] [address] Referring Physician Rheumatology 10/31/18 12/23/20 Martha Starks MD [address] [place] [address] Consulting Physician Cardiology 12/24/20 Puneet Uribe MD [address] [facility] [address] [place] [address] Consulting Physician Rheumatology 12/24/20 01/29/21 Shama Hines MD [address] [facility] [address] [place] [address] Consulting Physician Pain Management 01/19/21 Artis Grewal MD [address] [place] [address] Consulting Physician Rheumatology 01/30/21 Harrison Pena RN [address] [place] [address] Appliances Sample Maker 05/30/23 09/04/23 Nafisa Gregg RN [address] [facility] 300 [place] [address] Appliances Sample Maker 06/06/23 06/12/23 Amy Mayes NP [address] [place] [address] [address] [place] [address] Nurse Practitioner Cardiovascular Disease 04/20/24 Shailesh [place] MD [address] [facility] [address] [place] [address] Consulting Physician Pulmonary Disease 04/20/24 Sangita Farrar PA [address] [place] [address] Physician Reserves Clerk Rheumatology 05/15/24 Timi Cox MD [address] [facility] [id number] [place] [address] Surgeon Colon and Rectal Surgery 01/08/25 eTofilo Gongora MD [address] [id number] [place] [address] Urologist Urology 01/08/25 Allie East LPN [address] [place] [address] [address] [place] [address] Appliances Sample Maker 05/21/25 05/21/25 documented as of this encounter
--- OUTSIDE RECORDS SUMMARY | 2025-06-06 11:48 | XMS_ITS | Encounter Summary ---
Author Organization [facility]/Health system Facility Care Team Providers Care Geneticist Name Role Phone Alee Elizondo Primary Care Provider + [phone] Sharan Linton MD Unavailable [phone] Taisha Gomez MD Unavailable [phone] Parag Soto MD Unavailable RaziaMartha singh MD Unavailable [phone] Puneet Uribe MD Unavailable +[phone] Shama Hines MD Unavailable Artis Grewal MD Unavailable [phone] Harrison Pena RN Unavailable +[phone] Nafisa Gregg RN Unavailable +[phone] Tho Kelsey MD Primary Care Provider [phone] Alee Elizondo Primary Care Provider + [phone] Amy Mayes NP Unavailable [phone] Shailesh Dunn MD Unavailable [phone] Sangita Farrar Unavailable +[phone] Timi Cox MD Unavailable [phone] Teofilo Gongora MD Unavailable +[phone] Allie East LPN Unavailable Encounter Details Date Type Department Care Team (Latest Contact Info) Description 09/14/2016 Orders Only [facility] CLINCONV Provider, MD Tania [address] [place] [address] Social History Tobacco Use Types Packs/Day Years Used Date Smoking Tobacco: Never Alcohol Use Standard Drinks/Week Comments No 0 (1 standard drink = 0.6 oz pur e alcohol) Comments Unknown Sex and Gender Information Value Date Recorded Sex Assigned at Not on file Legal Sex Female 8:04 PM SUPERVISOR [employer] Gender Identity Female 02/15/2020 6:08 PM CDT Sexual Orientation Not on file documented as of this encounter Plan of Treatment Not on file documented as of this encounter Procedures Procedure Name Priority Date/Time Associated Diagnosis Comments PROCEDURE - RESULT 09/09/2016 12 :00 AM SUPERVISOR [employer] documented in this encounter Results * PROCEDURE - RESULT (09/09/2016 12:00 AM SUPERVISOR [employer]) Narrative 09/09/2016 12:00 AM SUPERVISOR [employer] Ordered by an unspecified provider. Historical Provider Final Res ult documented in this encounter Visit Diagnoses Not on filedocumented in this encounter Additional Health Concerns Infection Onset Date Last Indicated Resolved Time COVID: Suspected 08/13/2021 08/14/2021 08/14/2021 3:06 AM SUPERVISOR [employer] COVID: Suspected 08/14/2021 08/14/2021 08/15/2021 3:05 AM SUPERVISOR [employer] COVID: Suspected 08/14/2021 08/14/2021 08/15/2021 6:25 AM SUPERVISOR [employer] COVID: Suspected 06/02/2023 06/02/2023 06/02/2023 7:25 PM SUPERVISOR [employer] COVID: Suspected 07/26/2023 07/26/2023 07/26/2023 3:10 PM SUPERVISOR [employer] COVID: Suspected 09/25/2024 09/25/2024 09/25/2024 11:03 AM CDT Influenza, adult 09/25/2024 09/25/2024 10/02/2024 3:05 AM CDT COVID: Suspected 10/23/2024 10/23/2024 10/23/2024 1:15 PM CDT COVID: Suspected 12/03/2024 12/03/2024 12/03/2024 10:09 PM CDT documented as of this encounter Care Teams Geneticist Relationship Specialty Start Date End Date Alee Elizondo PA [address] [place] [address] PCP - General Internal Medicine 02/01/17 06/29/23 Tho Kelsey MD [address] [place] [address] [address] [place] [address] PCP - General Family Medicine 06/30/23 07/04/23 Alee Elizondo PA [address] [place] [address] PCP - General Internal Medicine 07/05/23 Sharan Linton MD [address] [place] [address] Referring Physician Gastroenterology 10/31/18 Taisha Gomez MD [address] [place], [place] [id number] Referring Physician Pulmonary Disease 10/31/18 12/23/20 Parag Soto MD [address] [place] [address] Referring Physician Rheumatology 10/31/18 12/23/20 Martha Starks MD [address] [place] [address] Consulting Physician Cardiology 12/24/20 Puneet Uribe MD [address] [facility] 110 [facility] 110 [place] [address] Consulting Physician Rheumatology 12/24/20 01/29/21 Shama Hines MD [address] [facility], [facility] [address] [place] [address] Consulting Physician Pain Management 01/19/21 Artis Grewal MD [address] [place] [address] Consulting Physician Rheumatology 01/30/21 Harrison Pena RN [address] [place] [address] Recreational Counselor 05/30/23 09/04/23 Nafisa Gregg, JULIUS [address] [place] [address] [address] [place] [address] Recreational Counselor 06/06/23 06/12/23 Amy Mayes NP [address] [place] [address] 300 [place] [address] Nurse Practitioner Cardiovascular Disease 04/20/24 Shailesh Dunn MD [address] [facility] 200 [place] [address] Consulting Physician Pulmonary Disease 04/20/24 Sangita Farrar PA [address] [place] [address] Physician Manager Plant Rheumatology 05/15/24 Timi Cox MD [address] [facility] [phone] [place] [address] Surgeon Colon and Rectal Surgery 01/08/25 Teofilo Gongora MD [address] [id number] [place] [address] Urologist Urology 01/08/25 Allie East LPN [address] [place] [address] [address] [place] [address] Recreational Counselor 05/21/25 05/21/25 documented as of this encounter
--- OUTSIDE RECORDS SUMMARY | 2025-06-06 11:48 | XMS_ITS | Clinical Summary ---
Author Organization [facility] [address] Address [address] [place] [address] Care Team Providers Care Surface Plate Finisher Name Role Phone Sharan Linton MD Unavailable [phone] aMrtha Starks MD Unavailable [phone] Shama Hines MD Unavailable Artis Grewal MD Unavailable [phone] Alee Elizondo Primary Care Provider [phone] Amy Mayes NP Unavailable [phone] Shailesh Dunn MD Unavailable [phone] Sangita Farrar Unavailable [phone] Timi Cox MD Unavailable [phone] Teofilo Gongora MD Unavailable [phone] Allergies Active Allergy Reactions Criticality Noted Date Comments Teriparatide Other (See comments) Low 09/06/2023 PT STATES IT CAUSES LEG CRAMPS AND INDIGESTION Meperidine Hives Medium 09/09/2016 Penicillins Hives Medium Happened as a child Medications cholecalciferol (VITAMIN D-3) 5,000 unit capsule Take 1 capsule (5,000 Units total) by mouth daily with dinner Active clobetasoL (CLOBEX) 0.05 % lotion Apply 1 application topically 2 (two) times a day as needed (to the scalp) 020 Active docusate sodium (COLACE) 100 mg capsule Take 2 capsules (200 mg total) by mouth 2 (two) times a day Active ketoconazole (NIZORAL) 2 % shampoo Apply 1 Application topically as needed for dandruff Active bumetanide (BUMEX) 1 mg tabletIndications :Edema, lower extremity TAKE 1 TABLET BY MOUTH TWICE A DAY 180 tablet Active Additional Information Patient taking differently: 1 mg oral Daily PRN, edema, (No instructions reported), Informant: Self, Reported on 05/17/2025 gabapentin (NEURONTIN) 100 mg capsule TAKE TWO CAPSULES BY MOUTH TWICE DAILY @9AM-5PM 120 capsule 11 025 Active aspirin 81 mg enteric coated tablet Take 1 tablet (81 mg total) by mouth daily 30 tablet 025 Active fluticasone propionate (FLONASE) 50 mcg/actuation nasal spray Administer 2 sprays into each nostril daily 48 mL 4 025 Active Linzess 290 mcg capsule Take 1 capsule (290 mcg total) by mouth daily [address] (CYMBALTA) 60 mg capsuleIndication s:Moderate episode of recurrent major depressive disorder (HCC) Take 1 capsule (60 mg total) by mouth daily 90 capsule 1 025 Active rosuvastatin (CRESTOR) 10 mg tabletIndications :Mixed hyperlipidemia Take 1 tablet (10 mg total) by mouth daily 90 tablet 2 025 Active montelukast (SINGULAIR) 10 mg tablet Take 1 tablet (10 mg total) by mouth nightly 100 tablet 1 025 Active clindamycin (CLEOCIN) 300 mg capsuleIndication s:Chronic pain of right knee,History of total knee arthroplasty, right Take 4 tablets 1 hour prior to dental procedure even cleanings. 8 capsule 025 Active oxyBUTYnin XL (DITROPAN-XL) 10 mg 24 hr tablet Take 1 tablet (10 mg total) by mouth daily 30 tablet 11 025 2025 Active folic acid (FOLVITE) 1 mg tablet Take 2 tablets (2 mg total) by mouth daily 180 tablet 1 Active hydroxychloroquin e (PLAQUENIL) 200 mg tabletIndications :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) Take 2 tablets (400 mg total) by mouth daily 180 tablet 1 Active Orencia ClickJect 125 mg/mL auto-injector Inject 1 mL (125 mg total) under the skin once a week 12 mL 1 Active Additional Information Patient taking differently:125 mg subcutaneous Weekly,On Fridays, Reported on 05/17/2025 cyclobenzaprine (FLEXERIL) 5 mg tabletIndications :Primary osteoarthritis involving multiple joints TAKE 1-2 TABLETS BY MOUTH NIGHLTY NEEDED 60 tablet 2 Active potassium chloride ER 10 mEq CR tabletIndications :Venous insufficiency (chronic) (peripheral) TAKE ONE TABLET BY MOUTH TWICE DAILY @9AM & 5PM 180 tablet 11 Active bisacodyl EC (DULCOLAX EC) 5 mg EC tabletIndications :constipation Take 2 tablets (10 mg total) by mouth daily as needed for constipation 30 tablet Active ondansetron ODT (ZOFRAN-ODT) 4 mg disintegrating tabletIndications :Nausea and Vomiting Take 1 tablet (4 mg total) by mouth every 6 (six) hours as needed for nausea or vomiting 20 tablet Active oxyCODONE (ROXICODONE) 10 mg tabletIndications :Pain Take 1 tablet (10 mg total) by mouth every 8 (eight) hours as needed for pain 12 tablet Active polyethylene glycol (MIRALAX) 17 gram/dose bulk powderIndications :constipation Take 17 g by mouth daily as needed (Constipation) 238 g Active buPROPion XL (WELLBUTRIN XL) 300 mg 24 hr tabletIndications :Episode of recurrent major depressive disorder, unspecified depression episode severity TAKE ONE TABLET (300MG TOTAL) BY MOUTH DAILY AT 9 AM EVERY MORNING 90 tablet 025 Active rOPINIRole (REQUIP) 0.5 mg tabletIndications :PLMD (periodic limb movement disorder) TAKE TWO TABLETS (1 MG TOTAL) BY MOUTH DAILY AT 9 PM NIGHTLY 180 tablet 11 Active phenazopyridine (PYRIDIUM) 200 mg tabletIndications :Dysuria Take 1 tablet (200 mg total) by mouth every 8 (eight) hours as needed for bladder spasms 20 tablet 1 Active methotrexate 2.5 mg tablet TAKE EIGHT TABLETS (20 MG TOTAL) BY MOUTH ONCE A WEEK 96 tablet Active levoFLOXacin (LEVAQUIN) 500 mg tabletIndications :Urinary Tract/Genitourina ry Infection Take 1 tablet (500 mg total) by mouth daily for 5 days 5 tablet 025 2024 Active potassium chloride ER 10 mEq CR tabletIndications :Venous insufficiency (chronic) (peripheral) Take 1 tablet/capsule (10 mEq total) by mouth 2 (two) times a day 180 tablet/cap johan 3 024 2024 Discontinued rOPINIRole (REQUIP) 0.5 mg tabletIndications :PLMD (periodic limb movement disorder) Take 2 tablets (1 mg total) by mouth nightly 180 tablet 2 025 2024 Discontinued buPROPion XL (WELLBUTRIN XL) 300 mg 24 hr tabletIndications :Episode of recurrent major depressive disorder, unspecified depression episode severity Take 1 tablet (300 mg total) by mouth every morning 90 tablet 1 2024 Discontinued oxyCODONE (ROXICODONE) 5 mg immediate release tabletIndications :Pain Take 1 tablet (5 mg total) by mouth every 6 (six) hours as needed (severe pain) 40 tablet 025 2024 Discontinued(P atient Reported) meloxicam (MOBIC) 15 mg tabletIndications :Chronic pain of both knees Take 0.5 tablets (7.5 mg total) by mouth daily 45 tablet 1 025 2024 Discontinued(T herapy completed) methotrexate 2.5 mg tablet TAKE EIGHT TABLETS (20 MG TOTAL) BY MOUTH ONCE A WEEK 96 tablet 1 025 2024 Discontinued cefuroxime (CEFTIN) 500 mg tabletIndications :Urinary Tract/Genitourina ry Infection Take 1 tablet (500 mg total) by mouth 2 (two) times a day for 6 days 12 tablet 025 2024 ciprofloxacin (CIPRO) 250 mg tabletIndications :Urinary Tract/Genitourina ry Infection Take 1 tablet (250 mg total) by mouth 2 (two) times a day for 5 days 10 tablet 025 2024 Active Problems Patient Care Coordination No te Formatting of this note migh t be different from the original. CAD for BIC Problem Noted Date Diagnosed Date Acute pyelonephritis 05/18/2025 Assessment & Plan (05/19/2025 8:17 AM PAPER BAGS SEWING MACHINE OPERATOR): See above Left flank pain 05/17/2025 Assessment & Plan (05/19/2025 8:17 AM PAPER BAGS SEWING MACHINE OPERATOR): Likely secondary from UTI/pyelonephritis. Could be bladder spasm. she is on 5 mg q.4 hours will increase to 10 mg q.4 hours. morphine 2 mg q.4 hours. Bentyl. Patient is on oxybutynin 10 mg daily. MiraLax , senna, Dulcolax p.r.n. to avoid constipation. Patient had 2 bowel movements since admission Assessment & Plan (05/18/2025 10:54 AM PAPER BAGS SEWING MACHINE OPERATOR): Likely secondary from UTI/pyelonephritis. Could be bladder spasm. Patient stated that oxycodone is not helping. He E she is on 5 mg q.4 hours will increase to 10 mg q.4 hours. I added morphine 2 mg q.4 hours. I also added Bentyl. Patient is on oxybutynin 10 mg daily. I will add MiraLax , senna, Dulcolax p.r.n. to avoid constipation. Patient had 2 bowel movements since admission Assessment & Plan (05/17/2025 4:05 PM PAPER BAGS SEWING MACHINE OPERATOR): Pt presents with acute left flank pain in setting of chronic indwelling suprapubic catheter. SIRS neg and CT without evidence of pyelo or stones. UA shows nitrite/leuk esterase but 11-20 squams. Possible pyelo, will favor treating due to recent catheter exchange and indwelling agosto Cr 1.22 up from 0.79. Admit to inpatient Continue IV ceftriaxone, narrow to cultures Urine studies Avoid nephrotoxins - received toradol x1 If continued flank pain after tx of pyelo, consider reimaging for nephrolithiasis Continue home oxybutynin Pain control with prn tylenol/oxycodone Acute renal failure 05/17/2025 Assessment & Plan (05/19/2025 8:17 AM PAPER BAGS SEWING MACHINE OPERATOR): Creatinine today is 1.20 not significantly changed yesterday. Mild NORAH secondary from dehydration and UTI. Will continue IV fluid but I will increase the rate to 75 mL/hour.. repeat labs today. Will avoid nephrotoxic medication. Assessment & Plan (05/18/2025 10:54 AM PAPER BAGS SEWING MACHINE OPERATOR): Mild NORAH secondary from dehydration and UTI. Will continue IV fluid . repeat labs today. Will avoid nephrotoxic medication. Assessment & Plan (05/17/2025 4:05 PM PAPER BAGS SEWING MACHINE OPERATOR): Pt presents with acute left flank pain in setting of chronic indwelling suprapubic catheter. SIRS neg and CT without evidence of pyelo or stones. UA shows nitrite/leuk esterase but 11-20 squams. Possible pyelo, will favor treating due to recent catheter exchange and indwelling agosto Cr 1.22 up from 0.79. Admit to inpatient Continue IV ceftriaxone, narrow to cultures Urine studies Avoid nephrotoxins - received toradol x1 If continued flank pain after tx of pyelo, consider reimaging for nephrolithiasis Continue home oxybutynin Pain control with prn tylenol/oxycodone Constipation 01/09/2025 UTI (urinary tract infection ) due to urinary indwelling catheter 12/07/2024 Assessment & Plan (05/19/2025 8:17 AM PAPER BAGS SEWING MACHINE OPERATOR): UA is suggestive of UTI. Likely pyelonephritis. Patient had recent change of suprapubic catheter. On Rocephin day 3. Will continue Rocephin. Blood culture is so far negative and urine culture is growing Klebsiella pneumoniae. Sensitivities pending. Will follow sensitivity. Will continue IV antibiotic. No need to change the catheter as patient just had catheter changed on 05/13/2025. A CT showed catheter is in good place. Assessment & Plan (05/18/2025 10:54 AM PAPER BAGS SEWING MACHINE OPERATOR): UA is suggestive of UTI. Patient had recent change of suprapubic catheter. On Rocephin day 2. Will continue Rocephin. Blood culture and urine culture was sent. Assessment & Plan (12/09/2024 12:04 PM CDT): Presented with worsening pelvic pain. UA positive for LE and WBC>50 -Urology consulted and recommended Abx and antispasmodics and follow up outpatient. However, will admit for pain control - start IV ceftriaxone 1g daily - consider pyridium 100mg TID PRN x 3 days - consider mirabegron 25mg daily or oxybutynin XL 10mg daily - UCx with gaitan sensitive Klebsiella - antiemetics prn for nausea - pain control: tylenol q6h prn, oxycodone 5 mg q6h prn, and 0.5 mg IV hydromorphone q4h prn for breakthrough pain. - follow-up with Urology outpatient as scheduled Assessment & Plan (12/08/2024 1:56 PM CDT): Presented with worsening pelvic pain. UA positive for LE and WBC>50 -Urology consulted and recommended Abx and antispasmodics and follow up outpatient. However, will admit for pain control - start IV ceftriaxone 1g daily - consider pyridium 100mg TID PRN x 3 days - consider mirabegron 25mg daily or oxybutynin XL 10mg daily - UCx with Klebsiella, pending sensitivities - antiemetics prn for nausea - pain control: tylenol q6h prn, oxycodone 5 mg q6h prn, and 0.5 mg IV hydromorphone q4h prn for breakthrough pain. - follow-up with Urology outpatient as scheduled Assessment & Plan (12/07/2024 8:39 PM CDT): Presented with worsening pelvic pain UA positive for LE and WBC>50 Urology consulted and recommended Abx and antispasmodics and follow up outpatient. However, will admit for pain control - start IV ceftriaxone 1g daily - consider pyridium 100mg TID PRN x 3 days - consider mirabegron 25mg daily or oxybutynin XL 10mg daily - follow-up urine culture - antiemetics prn for nausea - pain control: tylenol and IV morphine prn - follow-up with Urology outpatient as scheduled Urinary retention 11/22/2024 Anemia 11/22/2024 Pelvic pain 10/30/2023 Assessment & Plan (10/30/2023 11:44 PM CDT): Patient has a large pelvic lipomatosis. She has had evaluation by Urology at [facility] and has been told [...] prescribed. Assessment & Plan (08/07/2023 7:55 PM PAPER BAGS SEWING MACHINE OPERATOR): Persistent sinusitis symptoms along with cough. Will start doxy b.i.d.. Start antihistamine (Claritin OR Zyrtec), Mucinex 12hour and Steroid nasal spray (Flonase). Push fluids. Rest. Supportive care. If sxs worsen or don\'t improve, pt is to followup in the office. Primary osteoarthritis of right knee 07/08/2023 Assessment & Plan (05/07/2024 8:56 PM PAPER BAGS SEWING MACHINE OPERATOR): Patient has arthritis in the right knee. Planning a total knee replacement with Dr. Alexus Motta on May 30 Assessment & Plan (08/03/2023 8:28 AM PAPER BAGS SEWING MACHINE OPERATOR): Continue per ortho. She is seeing some improvement but it is difficult to know if the knee is rheumatoid versus osteo versus other etiology. Will await recommendations from JACQUI Raya but definitely encouraged her to become active as soon as possible. Status post total knee replacement using cement, right 05/19/2023 Assessment & Plan (06/02/2023 4:56 PM PAPER BAGS SEWING MACHINE OPERATOR): Status post total knee replacement with Dr. Ge Sexton 04 May. She has just been released from rehab following up for her TCM visit. She appears to have an area of cellulitis at the incision site. She is also complaining of increased pain. Will check CBC CMP and inflammatory markers along with an x-ray. She plans to go to [facility] for the workup. Will follow up [...] 05/06/2023 BMI 34.0-34.9,adult 04/06/2023 Assessment & Plan (05/24/2025 9:25 AM PAPER BAGS SEWING MACHINE OPERATOR): Discussed the patient's BMI. The BMI is above average. BMI management plan is completed. BMI Follow-up includes: nutrition counseling, exercise counseling and education provided. Assessment & Plan (04/25/2025 7:52 AM CDT): Discussed the patient's BMI. The BMI is above average. BMI management plan is completed. BMI Follow-up includes: nutrition counseling, exercise counseling and education provided. Assessment & Plan (02/20/2025 7:12 AM CDT): Discussed the patient's BMI. The BMI is above average. BMI management plan is completed. BMI Follow-up includes: nutrition counseling, exercise counseling and education provided. Assessment & Plan (12/27/2024 8:28 AM CDT): Discussed the patient's BMI. The [...] provided. Assessment & Plan (06/02/2023 8:27 AM PAPER BAGS SEWING MACHINE OPERATOR): Discussed the patients BMI: The [...] 12/20/2022 Assessment & Plan (05/07/2024 8:55 PM PAPER BAGS SEWING MACHINE OPERATOR): Patient is on medication for her rheumatoid arthritis managed by [facility] Assessment & Plan (01/22/2024 8:13 PM CDT): Medications from [facility] contribute to her immunosuppressive state. Assessment & Plan (09/06/2023 9:41 AM PAPER BAGS SEWING MACHINE OPERATOR): Medications are managed by [facility] for her rheumatoid arthritis Assessment & Plan (04/06/2023 7:44 PM CDT): Managed by [facility]. Currently on Plaquenil methotrexate Orencia folic [...] She has had evaluation by Urology at [facility] and has been told [...] capacity. Assessment & Plan (09/06/2023 9:41 AM PAPER BAGS SEWING MACHINE OPERATOR): Continue per . She did [...] Pate. Assessment & Plan (07/18/2022 10:20 AM PAPER BAGS SEWING MACHINE OPERATOR): CT revealed pelvic lipomatosis that [...] 02/11/2022 Assessment & Plan (09/06/2023 9:41 AM PAPER BAGS SEWING MACHINE OPERATOR): No change. Dysfunction of both eustachian tubes 02/11/2022 Myalgia, lower leg 01/11/2022 PLMD (periodic limb movement disorder) Assessment & Plan (11/06/2024 9:20 AM CDT): The patient is unaware that her limbs are moving at night when she sleeps. Assessment & Plan (08/02/2024 11:49 AM PAPER BAGS SEWING MACHINE OPERATOR): Asymptomatic Assessment & Plan (06/22/2022 10:31 AM PAPER BAGS SEWING MACHINE OPERATOR): Will continue Requip 1 mg [...] bedtime. Assessment & Plan (07/13/2021 11:25 AM PAPER BAGS SEWING MACHINE OPERATOR): Due to the patient stating [...] for medication monitoring 06/04/2020 Assessment & Plan (03/27/2025 8:19 AM CDT): Hepatitis negative 06/2020 Tspot negative 06/2020 Continue routine lab monitoring Maintain routine eye exams throughout the duration of taking hydroxychloroquine Assessment & Plan (11/21/2024 10:33 AM CDT): Hepatitis negative 06/2020 Tspot negative 06/2020 Continue routine lab monitoring Maintain routine eye exams throughout the duration of taking hydroxychloroquine Assessment & Plan (08/23/2024 10:16 AM PAPER BAGS SEWING MACHINE OPERATOR): Hepatitis negative 06/2020 Tspot negative 06/2020 Continue routine lab monitoring Maintain routine eye exams throughout the duration of taking hydroxychloroquine Assessment & Plan (07/30/2024 8:24 AM PAPER BAGS SEWING MACHINE OPERATOR): Hepatitis negative 06/2020 Tspot negative [...] hydroxychloroquine Assessment & Plan (09/01/2023 8:34 AM PAPER BAGS SEWING MACHINE OPERATOR): Hepatitis negative 06/2020 Tspot negative 06/2020 Continue routine lab monitoring Maintain routine eye exams throughout the duration of taking hydroxychloroquine Assessment & Plan (06/29/2023 2:19 PM PAPER BAGS SEWING MACHINE OPERATOR): Hepatitis negative 06/2020 Tspot negative [...] hydroxychloroquine Assessment & Plan (07/14/2022 2:58 PM PAPER BAGS SEWING MACHINE OPERATOR): Hepatitis negative 06/2020 Tspot negative 06/2020 Continue routine lab monitoring Maintain routine eye exams throughout the duration of taking hydroxychloroquine Assessment & Plan (06/03/2022 9:58 AM PAPER BAGS SEWING MACHINE OPERATOR): Hepatitis negative 06/2020 Tspot negative [...] hydroxychloroquine Assessment & Plan (09/03/2021 8:29 AM PAPER BAGS SEWING MACHINE OPERATOR): Hepatitis negative 06/2020 Tspot negative 06/2020 Continue routine lab monitoring Maintain routine eye exams throughout the duration of taking hydroxychloroquine Assessment & Plan (06/03/2021 4:17 PM PAPER BAGS SEWING MACHINE OPERATOR): Hepatitis negative 06/2020 Tspot negative [...] hydroxychloroquine Assessment & Plan (09/02/2020 1:16 PM PAPER BAGS SEWING MACHINE OPERATOR): Hepatitis negative 06/2020 Tspot negative 06/2020 Continue routine lab monitoring Maintain routine eye exams throughout the duration of taking hydroxychloroquine Assessment & Plan (07/09/2020 12:23 PM PAPER BAGS SEWING MACHINE OPERATOR): Hepatitis negative 06/2020 Tspot negative [...] 08/13/2019 Assessment & Plan (05/07/2024 8:54 PM PAPER BAGS SEWING MACHINE OPERATOR): Patient with chronic constipation. Has [...] linzess Assessment & Plan (08/13/2019 8:57 AM PAPER BAGS SEWING MACHINE OPERATOR): On Movantik with Dr. Soto Herpes zoster without complication 12/13/2018 Assessment & Plan (12/23/2018 10:18 PM CDT): Valtex to pharmacy. She has had shingles in the past. Obesity (BMI 30-39.9) 11/01/2018 Assessment & Plan (05/24/2025 9:25 AM PAPER BAGS SEWING MACHINE OPERATOR): Discussed the patient's BMI. The BMI is above average. BMI management plan is completed. BMI Follow-up includes: nutrition counseling, exercise counseling and education provided. Assessment & Plan (04/25/2025 7:52 AM CDT): Discussed the patient's BMI. The BMI is above average. BMI management plan is completed. BMI Follow-up includes: nutrition counseling, exercise counseling and education provided. Assessment & Plan (02/20/2025 7:11 AM CDT): Discussed the patient's BMI. The BMI is above average. BMI management plan is completed. BMI Follow-up includes: nutrition counseling, exercise counseling and education provided. Assessment & Plan (12/27/2024 8:28 AM CDT): Discussed the patient's BMI. The BMI is above average. BMI management plan is completed. BMI Follow-up includes: nutrition counseling, exercise counseling and education provided. Assessment & Plan (04/29/2019 4:30 PM CDT): [...] from others; identify saboteurs; non-food rewards, etc). Pre-diabetes 10/31/2018 Assessment & Plan (10/22/2024 1:05 PM CDT): Pre-diabetes/hyperglycemia is a precursor to Dm. Stressed importance of working on diet (decrease your simple sugars and one carbohydrate with each meal) and increase you exercise to achieve weight loss and this will help prevent you from progressing to diabetes. Assessment & Plan (05/07/2024 8:55 PM PAPER BAGS SEWING MACHINE OPERATOR): Pre-diabetes/hyperglycemia is a precursor to [...] diabetes. Assessment & Plan (09/06/2023 9:40 AM PAPER BAGS SEWING MACHINE OPERATOR): Pre-diabetes/hyperglycemia is a precursor to [...] diabetes. Assessment & Plan (09/11/2021 11:22 PM PAPER BAGS SEWING MACHINE OPERATOR): Pre-diabetes/hyperglycemia is a precursor to Dm. Stressed importance of working on diet (decrease your simple sugars and one carbohydrate with each meal) and increase you exercise to achieve weight loss and this will help prevent you from progressing to diabetes. Assessment & Plan (05/29/2021 8:18 PM PAPER BAGS SEWING MACHINE OPERATOR): Pre-diabetes/hyperglycemia is a precursor to [...] diabetes. Assessment & Plan (08/31/2020 9:34 AM PAPER BAGS SEWING MACHINE OPERATOR): Pre-diabetes is a precursor to [...] diabetes. Assessment & Plan (08/13/2019 9:00 AM PAPER BAGS SEWING MACHINE OPERATOR): This is a significant, separately [...] depressive d isorder 10/31/2018 Assessment & Plan (12/09/2024 8:10 AM CDT): home Wellbutrin and fluoxetine Assessment & Plan (12/08/2024 1:56 PM CDT): home Wellbutrin and fluoxetine Assessment & Plan (12/07/2024 8:39 PM CDT): home Wellbutrin and fluoxetine Assessment & Plan (10/22/2024 1:06 PM CDT): depression symptoms are stable with Wellbutrin XL 150 and Cymbalta 60 b.I.d. Assessment & Plan (05/07/2024 8:54 PM PAPER BAGS SEWING MACHINE OPERATOR): Depression symptoms are stable with Wellbutrin XL 150 Cymbalta 60 b.i.d. Assessment & Plan (04/21/2024 8:50 PM CDT): Depression symptoms are stable with the Wellbutrin XL 150 and Cymbalta 60 b.i.d. Assessment & Plan (01/22/2024 8:11 PM CDT): Depression symptoms are stable with Wellbutrin and Cymbalta Assessment & Plan (09/06/2023 9:40 AM PAPER BAGS SEWING MACHINE OPERATOR): Depression is stable with Wellbutrin and Cymbalta Assessment & Plan (08/03/2023 8:31 AM PAPER BAGS SEWING MACHINE OPERATOR): Stable with Cymbalta 60 and [...] Cymbalta Assessment & Plan (09/11/2021 11:26 PM PAPER BAGS SEWING MACHINE OPERATOR): Continue Wellbutrin and Cymbalta Assessment & Plan (05/29/2021 8:22 PM PAPER BAGS SEWING MACHINE OPERATOR): Continue Wellbutrin and Cymbalta Assessment & Plan (05/24/2021 10:39 AM PAPER BAGS SEWING MACHINE OPERATOR): Continue Wellbutrin and Cymbalta Assessment & Plan (12/24/2020 9:07 AM CDT): Continue wellbutrin and cymbalta Assessment & Plan (08/31/2020 9:35 AM PAPER BAGS SEWING MACHINE OPERATOR): Continue wellbutrin and cymbalta Assessment & Plan (02/18/2020 9:47 PM CDT): Stable with the Cymbalata Assessment & Plan (08/13/2019 8:59 AM PAPER BAGS SEWING MACHINE OPERATOR): Stable with Cymbalta and Wellbutrin [...] regimen. Med list updated to reflect the [id number] one daily and Prozac 40mg. Mixed hyperlipidemia 03/29/2018 Assessment & Plan (05/19/2025 8:17 AM PAPER BAGS SEWING MACHINE OPERATOR): Continue Crestor Assessment & Plan (05/18/2025 10:54 AM PAPER BAGS SEWING MACHINE OPERATOR): Continue Crestor Assessment & Plan (05/17/2025 4:05 PM PAPER BAGS SEWING MACHINE OPERATOR): Resume aspirin/statin Assessment & Plan (12/09/2024 8:10 AM CDT): CW home statin, ASA 81 mg daily Assessment & Plan (12/08/2024 1:56 PM CDT): CW home statin, ASA 81 mg daily Assessment & Plan (12/07/2024 8:39 PM CDT): CW home statin She also takes ASA 81 mg daily Assessment & Plan (10/22/2024 1:06 PM CDT): Encouraged patient to follow low fat/low chol diet like the Mediterranean diet. Increase good fats in the diet. Increase exercise. Monitor labs as needed. Continue Crestor 10 Assessment & Plan (05/07/2024 8:54 PM PAPER BAGS SEWING MACHINE OPERATOR): Encouraged patient to follow low [...] statin Assessment & Plan (09/06/2023 9:42 AM PAPER BAGS SEWING MACHINE OPERATOR): Encouraged patient to follow low [...] statin Assessment & Plan (09/11/2021 11:26 PM PAPER BAGS SEWING MACHINE OPERATOR): Encouraged patient to follow low fat/low chol diet like the Mediterranean diet. Increase good fats in the diet. Increase exercise. Monitor labs as needed. Continue statin Assessment & Plan (05/29/2021 8:22 PM PAPER BAGS SEWING MACHINE OPERATOR): Encouraged patient to follow fat/low chol diet like the Mediterranean diet. Increase good fats in the diet. Increase exercise. Monitor labs as needed. Continue statin Assessment & Plan (05/24/2021 10:39 AM PAPER BAGS SEWING MACHINE OPERATOR): Encouraged patient to follow fat/low [...] statin Assessment & Plan (08/31/2020 9:34 AM PAPER BAGS SEWING MACHINE OPERATOR): Encouraged patient to follow fat/low chol diet like the Mediterranean diet. Increase good fats in the diet. Increase exercise. Monitor labs as needed. Continue statin Assessment & Plan (02/18/2020 9:46 PM CDT): Encouraged patient to continue low fat/low chol diet. Continue exercise. Increase good fats in the diet. Monitor labs as needed. Assessment & Plan (08/13/2019 8:59 AM PAPER BAGS SEWING MACHINE OPERATOR): Encouraged patient to continue low [...] future Assessment & Plan (09/06/2023 9:40 AM PAPER BAGS SEWING MACHINE OPERATOR): Continue PPI Assessment & Plan (04/06/2023 7:36 PM CDT): Continue PPI p.r.n. Assessment & Plan (01/20/2023 8:13 PM CDT): Continue PPI Assessment & Plan (09/12/2022 6:13 PM CDT): Continue PPI p.r.n. Assessment & Plan (06/03/2022 3:40 PM PAPER BAGS SEWING MACHINE OPERATOR): Pyrosis poorly controlled on Nexium. [...] PPI Assessment & Plan (09/11/2021 11:26 PM PAPER BAGS SEWING MACHINE OPERATOR): Continue PPI Assessment & Plan (12/24/2020 9:05 AM CDT): Continue PPI Assessment & Plan (02/18/2020 9:45 PM CDT): Continue PPI. Saw Dr. Linton for increased GERD sxs. If persist, encouraged to followup again with Dr. Linton. Assessment & Plan (08/13/2019 8:58 AM PAPER BAGS SEWING MACHINE OPERATOR): Stable with PPI Assessment & [...] exertion) Assessment & Plan (06/22/2022 10:30 AM PAPER BAGS SEWING MACHINE OPERATOR): Patient is not currently using [...] OWEN on CPAP 10/14/2015 Assessment & Plan (12/09/2024 8:10 AM CDT): OWEN precautions - cont CPAP at night Assessment & Plan (12/08/2024 8:04 AM CDT): OWEN precautions - cont CPAP at night Assessment & Plan (12/07/2024 8:39 PM CDT): OWEN precautions - cont CPAP at night Assessment & Plan (11/06/2024 9:20 AM CDT): The patient continue to wear her CPAP at auto titrating range of 7-20 cm water pressure while sleeping. Her DME is [facility]. I have sent an order over to [facility] due to her changing insurances. Assessment & Plan (10/22/2024 1:05 PM CDT): Managed by Dr. Dunn. Continue CPAP Assessment & Plan (08/02/2024 11:49 AM PAPER BAGS SEWING MACHINE OPERATOR): Due to the patient stating [...] readjusted. She denied need for supplies. DME [facility] Assessment & Plan (05/07/2024 8:55 PM PAPER BAGS SEWING MACHINE OPERATOR): Continue with CPAP. Assessment & Plan (04/21/2024 8:49 PM CDT): Continue per Dr. Dunn. Has all her needed supplies for CPAP which she is using every night. Continue with Requip 0.5 mg HS for restless leg Assessment & Plan (01/22/2024 8:08 PM CDT): Continue CPAP per Dr. Dunn Assessment & Plan (09/06/2023 9:40 AM PAPER BAGS SEWING MACHINE OPERATOR): Continue CPAP Assessment & Plan (06/21/2023 10:14 AM PAPER BAGS SEWING MACHINE OPERATOR): Patient continue to wear her [...] CPAP Assessment & Plan (06/22/2022 10:31 AM PAPER BAGS SEWING MACHINE OPERATOR): Will continue CPAP therapy at an auto titrating range of 7-20 cm water pressure. Denied need for supplies. DME [facility] Assessment & Plan (05/02/2022 9:15 [...] pressure. Patient denied need for supplies. DME company [facility]. Patient is benefitting CPAP Assessment & Plan (09/11/2021 11:22 PM PAPER BAGS SEWING MACHINE OPERATOR): Continue CPAP. Patient has all needed supplies. Assessment & Plan (07/13/2021 11:27 AM PAPER BAGS SEWING MACHINE OPERATOR): Due to the patient stating she does not have enough pressure in her machine, I have increased the pressure to 13 cm water pressure. The patient denied need for for supplies. DME [facility]. Have also ordered a new smart card set at 13 cm water pressure. Benefitting from CPAP therapy Assessment & Plan (05/29/2021 8:14 PM PAPER BAGS SEWING MACHINE OPERATOR): Continue CPAP. Assessment & Plan (02/17/2021 11:09 AM CDT): The patient continues to be compliant with her CPAP at 8 cm water pressure. She has developed worsening daytime hypersomnia. She also has morning headaches and dry mouth. I have recommended proceeding with a CPAP titration study starting at 8 cm water pressure. Her DME is [facility]. Assessment & Plan (12/24/2020 9:04 AM CDT): Continue CPAP. Would like to see Pulm[facility]sleep at [facility] as difficulty getting in consistently at [facility] and most of her care is now [facility] Assessment & Plan (02/18/2020 9:44 PM CDT): Continue CPAP Assessment & Plan (08/13/2019 8:46 AM PAPER BAGS SEWING MACHINE OPERATOR): Using the CPAP. Has equipment [...] compartment. Chondrocalcinosis is noted. Assessment & Plan (03/27/2025 12:02 PM CDT): 02/2021 XR L knee with mild to moderate OA, now s/p B TKA. Follow with ortho as needed. Some neck/shoulder discomfort, has noted benefit with cyclobenzaprine taken sparingly, refill sent. Assessment & Plan (11/21/2024 10:31 AM CDT): 02/2021 XR L knee with mild to moderate OA, now s/p B TKA. Following with ortho as planned. Assessment & Plan (08/23/2024 10:16 AM PAPER BAGS SEWING MACHINE OPERATOR): 02/2021 XR L knee with mild to moderate OA, now s/p B TKA. Following with ortho as planned. Assessment & Plan (07/30/2024 11:23 AM PAPER BAGS SEWING MACHINE OPERATOR): 02/2021 XR L knee with [...] March. Assessment & Plan (09/01/2023 3:42 PM PAPER BAGS SEWING MACHINE OPERATOR): 02/2021 XR L knee with mild to moderate OA, R knee negative. Had injections with ortho without benefit, now s/p L TKA. Assessment & Plan (06/30/2023 12:46 PM PAPER BAGS SEWING MACHINE OPERATOR): 02/2021 XR L knee with [...] g/d. Assessment & Plan (07/15/2022 1:41 PM PAPER BAGS SEWING MACHINE OPERATOR): 02/2021 XR L knee with mild to moderate OA, R knee negative. Had injections with ortho with benefit. Unable to afford PT. Can continue Tylenol Arthritis, not to exceed 4 g/d. Assessment & Plan (06/03/2022 9:58 AM PAPER BAGS SEWING MACHINE OPERATOR): 02/2021 XR L knee with [...] evaluation. Assessment & Plan (09/03/2021 11:27 AM PAPER BAGS SEWING MACHINE OPERATOR): XR L knee with mild [...] able. Assessment & Plan (06/04/2021 10:27 AM PAPER BAGS SEWING MACHINE OPERATOR): XR L knee with mild [...] above. Assessment & Plan (09/03/2020 12:23 PM PAPER BAGS SEWING MACHINE OPERATOR): 10/27/2017 XR L knee: mild tricompartmental OA. Will continue meloxicam as above. Assessment & Plan (07/09/2020 12:24 PM PAPER BAGS SEWING MACHINE OPERATOR): 10/27/2017 XR L knee: mild tricompartmental OA. Will continue meloxicam as above. In the future may consider trial of PT. Rheumatoid arthritis 11/17/2013 Overview (03/15/2024): Imaging 01/16/2021 XR R [...] fascia since previous examination. Assessment & Plan (05/19/2025 8:17 AM PAPER BAGS SEWING MACHINE OPERATOR): On hydroxychloroquine. We will continue Assessment & Plan (05/18/2025 10:54 AM PAPER BAGS SEWING MACHINE OPERATOR): On hydroxychloroquine. We will continue Assessment & Plan (05/17/2025 4:05 PM PAPER BAGS SEWING MACHINE OPERATOR): Resume hydroxychloroquine Assessment & Plan (03/27/2025 12:01 PM CDT): Continues to feel improved since resuming Orencia. Denies inflammatory sounding pain and has no synovitis on exam. Will continue Orencia SQ weekly with methotrexate 20 mg weekly, folic acid 2 mg daily, and hydroxychloroquine 200 mg BID and monitor. Labs as below. Follow up in 3-4 months or sooner as needed. Assessment & Plan (12/09/2024 8:10 AM CDT): Follows with rheumatology outpatient Takes Orencia SQ weekly with methotrexate 20 mg weekly, folic acid 2 mg daily, and hydroxychloroquine 200 mg BID MTX was last taken yesterday Assessment & Plan (12/08/2024 8:04 AM CDT): Follows with rheumatology outpatient Takes Orencia SQ weekly with methotrexate 20 mg weekly, folic acid 2 mg daily, and hydroxychloroquine 200 mg BID MTX was last taken yesterday Assessment & Plan (12/07/2024 8:39 PM CDT): Follows with rheumatology outpatient Takes Orencia SQ weekly with methotrexate 20 mg weekly, folic acid 2 mg daily, and hydroxychloroquine 200 mg BID MTX was last taken yesterday Assessment & Plan (11/21/2024 12:46 PM CDT): Feels and appears notably improved since resuming Orencia. Will continue Orencia SQ weekly with methotrexate 20 mg weekly, folic acid 2 mg daily, and hydroxychloroquine 200 mg BID and monitor. CMP reviewed, CBC today. Follow up in 3-4 months or sooner as needed. Assessment & Plan (10/22/2024 1:04 PM CDT): Continue per [facility]. Continue Plaquenil methotrexate Orencia folic acid Mobic gabapentin. Assessment & Plan (08/23/2024 12:54 PM PAPER BAGS SEWING MACHINE OPERATOR): Moderate cdai with report of [...] needed. Assessment & Plan (07/30/2024 11:22 AM PAPER BAGS SEWING MACHINE OPERATOR): Moderate cdai with report of [...] phone visit with labs near her home ([facility] in [place]), but the following month will need to plan for an in person visit. She expressed understanding and agreement with this plan. Continue methotrexate 20 mg weekly, folic acid 2 mg daily, and hydroxychloroquine 200 mg BID. Labs today as below. Assessment & Plan (05/07/2024 8:55 PM PAPER BAGS SEWING MACHINE OPERATOR): Managed by [facility]. Currently on Plaquenil and methotrexate and Orencia folic acid Mobic and gabapentin. Stressed she needs to be in contact with her senior speech pathologist on when and which medicines to stop for the surgery. Assessment & Plan (04/21/2024 8:49 PM CDT): Continue per [facility]. They currently manage her rheumatoid [...] Plan (01/22/2024 8:17 PM CDT): Continue per [facility] as they manage her condition. Assessment & Plan (11/24/2023 9:58 AM CDT): Low cdai without inflammatory sounding pain. Will continue methotrexate 20 mg weekly, folic acid 2 mg daily, hydroxychloroquine 200 mg BID, and Orencia and monitor. Labs today as below. Follow up in 3 months or sooner as needed. Assessment & Plan (09/06/2023 9:42 AM PAPER BAGS SEWING MACHINE OPERATOR): Rheumatoid arthritis is managed by [facility]. Currently on Plaquenil methotrexate Orencia and folic acid Assessment & Plan (09/01/2023 3:39 PM PAPER BAGS SEWING MACHINE OPERATOR): Overall stable without notable synovitis and no inflammatory sounding pain. Will continue methotrexate 20 mg weekly, folic acid 2 mg daily, hydroxychloroquine 200 mg BID, and Orencia and monitor. Labs today as below. Follow up in 3 months or sooner as needed. Assessment & Plan (08/03/2023 8:28 AM PAPER BAGS SEWING MACHINE OPERATOR): Continue with rheumatology. Assessment & Plan (06/30/2023 12:43 PM PAPER BAGS SEWING MACHINE OPERATOR): Overall stable without notable synovitis and no inflammatory sounding pain. Will continue methotrexate 20 mg weekly, folic acid 2 mg daily, hydroxychloroquine 200 mg BID, and Orencia and monitor. Labs today as below. Assessment & Plan (06/02/2023 4:49 PM PAPER BAGS SEWING MACHINE OPERATOR): Continue per Rheumatology Assessment & Plan (04/06/2023 7:35 PM CDT): Continue per Rheumatology. She has been in discussion with them on what medications to stop prior to her knee surgery. She states she was told to take all of her medicines accept the Orencia. Assessment & Plan (01/20/2023 8:12 PM CDT): Continue per Rheumatology [facility] Assessment & Plan (01/13/2023 3:42 [...] Plan (09/12/2022 6:06 PM CDT): Continue with [facility] Assessment & Plan (07/15/2022 1:41 PM PAPER BAGS SEWING MACHINE OPERATOR): Low cdai. Significantly improved after [...] needed. Assessment & Plan (06/03/2022 3:37 PM PAPER BAGS SEWING MACHINE OPERATOR): High cdai. Previously felt well controlled with current regimen. Due to burden of disease will give patient a triamcinolone injection. Patient made aware of SE of steroids including but not limited to HTN, increased blood glucose, cataracts, glaucoma, AVN, and osteoporosis with fpc use. Should she flare again shortly after [...] (01/23/2022 4:57 PM CDT): Continue management per [facility] Assessment & Plan (12/07/2021 9:02 AM CDT): Low cdai. Denies inflammatory sounding joint pain. Continue methotrexate 25 mg weekly, folic acid to 2 mg daily, Rinvoq 15 mg daily, hydroxychloroquine 200 mg BID, and cyclobenzaprine 5 mg qhs and monitor. Labs today as below. Plan for follow up in 3 months or sooner as needed. Assessment & Plan (09/11/2021 11:14 PM PAPER BAGS SEWING MACHINE OPERATOR): Continue per [facility] Assessment & Plan (09/03/2021 11:25 AM PAPER BAGS SEWING MACHINE OPERATOR): cdai = 12. Pt suspects [...] needed. Assessment & Plan (06/04/2021 10:25 AM PAPER BAGS SEWING MACHINE OPERATOR): Low cdai. Denies inflammatory sounding pain at present. Will plan to continue methotrexate 25 mg weekly, folic acid to 2 mg daily, Rinvoq 15 mg daily, hydroxychloroquine 200 mg BID, and cyclobenzaprine 5 mg qhs and monitor. Labs today as below. Plan for follow up in 3 months or sooner as needed. Assessment & Plan (05/31/2021 9:15 PM PAPER BAGS SEWING MACHINE OPERATOR): Continue per Rheumatology Assessment & Plan (05/29/2021 8:13 PM PAPER BAGS SEWING MACHINE OPERATOR): Continue per Rheumatology. Currently on Plaquenil methotrexate and folic acid. Assessment & Plan (05/24/2021 10:38 AM PAPER BAGS SEWING MACHINE OPERATOR): Continue per Rheumatology Assessment & [...] needed. Assessment & Plan (09/03/2020 12:22 PM PAPER BAGS SEWING MACHINE OPERATOR): Low cdai. Continues to feel [...] needed. Assessment & Plan (08/31/2020 9:34 AM PAPER BAGS SEWING MACHINE OPERATOR): Continue per [facility] Rheum Assessment & Plan (07/09/2020 12:22 PM PAPER BAGS SEWING MACHINE OPERATOR): 64yoF with a h/o seropositive [...] time. Assessment & Plan (06/04/2020 11:14 AM PAPER BAGS SEWING MACHINE OPERATOR): 64yoF with a h/o seropositive [...] needed. Assessment & Plan (05/14/2020 9:33 PM PAPER BAGS SEWING MACHINE OPERATOR): Refer to new Center Manager as Dr. Soto has . Assessment & Plan (02/18/2020 9:46 PM CDT): Continue per Rheum Assessment & Plan (08/13/2019 8:59 AM PAPER BAGS SEWING MACHINE OPERATOR): Continue per Dr. Soto Assessment [...] and indigestion Reclast 03/28/2019, 07/09/2020, 07/2021 Pause [id number] Restart ZOL 11/25 Assessment & Plan (11/08/2024 [...] recommendations from the bone metabolism group at [facility] Dr. Martinez. Appointment is scheduled in November. Has been on Reclast and Forteo. She also continues with vitamin-D Assessment & Plan (01/22/2024 8:08 PM CDT): Patient with osteoporosis. Has not been responding to Reclast. Forteo was tried by [facility] and she could not tolerate. [...] of her osteoporosis, recommended evaluation by the [facility], unfortunately their first available appt was in November 2024. Recommended today that she check with [facility] Osteoporosis center (at [facility]) to see how far out they are scheduling new patients, though she does not like this option due to distance from her house. Assessment & Plan (09/06/2023 9:40 AM PAPER BAGS SEWING MACHINE OPERATOR): Managed by [facility]. Per patient they are making a referral to bone metabolism at [facility] she has not seen significant improvement with the Forteo or the Reclast. Assessment & Plan (09/01/2023 3:43 PM PAPER BAGS SEWING MACHINE OPERATOR): DEXA: Lspine BMD 0.809 Tscore [...] of her osteoporosis, recommend evaluation by the [facility], provided contact info for Dr. Castillo. Pt in agreement with plan. Assessment & Plan (06/30/2023 12:49 PM PAPER BAGS SEWING MACHINE OPERATOR): DEXA: Lspine BMD 0.809 Tscore [...] PM CDT): Continue to monitor. Managed by [facility]. Patient is on Reclast calcium vitamin-D [...] exercise Assessment & Plan (07/15/2022 1:42 PM PAPER BAGS SEWING MACHINE OPERATOR): 01/27/2021 DEXA: Lspine -1.8, L femoral neck -1.9, L total hip -1.2, R femoral neck -2.3, R total hip -1.0, FRAX major 32% and hip 7%. Received Reclast 07/2021. Continue yearly Reclast, scheduled for 07/22 Assessment & Plan (06/03/2022 3:38 PM PAPER BAGS SEWING MACHINE OPERATOR): 01/27/2021 DEXA: Lspine -1.8, L [...] Plan (01/23/2022 5:02 PM CDT): Managed by [facility] currently on Reclast calcium and vitamin-D Assessment & Plan (12/07/2021 9:04 AM CDT): 01/27/2021 DEXA: Lspine -1.8, L femoral neck -1.9, L total hip -1.2, R femoral neck -2.3, R total hip -1.0, FRAX major 32% and hip 7%. Received Reclast 07/2021. Continue yearly Reclast. Assessment & Plan (09/03/2021 11:26 AM PAPER BAGS SEWING MACHINE OPERATOR): 01/27/2021 DEXA: Lspine -1.8, L femoral neck -1.9, L total hip -1.2, R femoral neck -2.3, R total hip -1.0, FRAX major 32% and hip 7%. Received Reclast 07/2021. Continue yearly reclast and daily vitamin D-calcium supplement. Assessment & Plan (06/04/2021 10:27 AM PAPER BAGS SEWING MACHINE OPERATOR): 01/27/2021 DEXA: Lspine -1.8, L [...] order provided today, she will schedule at [facility] Assessment & Plan (12/24/2020 9:06 AM CDT): Continue Reclast thru Rheum Continue calcium, vitD and exercise Assessment & Plan (12/03/2020 10:45 AM CDT): Vitamin D level was 68. Received Reclast 07/09/2020. Last DEXA per available records was 01/31/2019, due this summer - order provided today, she will schedule at [facility] Assessment & Plan (09/03/2020 12:23 PM PAPER BAGS SEWING MACHINE OPERATOR): Vitamin D level was 68. Received Reclast 07/09/2020. Last DEXA per available records was 01/31/2019, due this summer. Assessment & Plan (07/09/2020 12:23 PM PAPER BAGS SEWING MACHINE OPERATOR): Overdue for Reclast, last infusion was 03/28/2019, will receive infusion today. Vitamin D level was 68 Last DEXA per available records was 01/31/2019 Assessment & Plan (06/04/2020 11:15 AM PAPER BAGS SEWING MACHINE OPERATOR): Overdue for Reclast, last infusion was 03/28/2019, will check benefits. Recheck vitamin D level now. Last DEXA per available records was 01/31/2019 Assessment & Plan (02/18/2020 9:46 PM CDT): Calcium, vit D and exercise. Continue to monitor DXA Assessment & Plan (08/13/2019 8:58 AM PAPER BAGS SEWING MACHINE OPERATOR): Continue with Calcium, Vit D and Exercise. Recheck DXA iin Fall 2019 with mammogram Resolved Problems Problem Noted Date Diagnosed Date Resolved Date BMI 35.0-35.9,adult 11/22/2024 02/21/20 25 Assessment & Plan (11/22/2024 7:17 AM CDT): Discussed the patient's BMI. The BMI is above average. BMI management plan is completed. BMI Follow-up includes: nutrition counseling, exercise counseling and education provided. Annual physical exam 10/09/2024 025 Assessment & Plan (10/22/2024 1:07 PM CDT): Encouraged healthy lifestyle, good nutrition and exercise. Encouraged Calcium and Vitamin D and weight bearing exercise for bone health. Reviewed immunizations Reviewed age appropirate screenings. Encounter for pre-operative examination 05/07/2024 10/09/2024 Assessment & Plan (05/07/2024 8:57 PM PAPER BAGS SEWING MACHINE OPERATOR): I have examined this patient [...] Krishnamurthy. 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 Daniels Stressed importance of very close follow-up BMI 37.0-37.9, adult 09/06/2023 024 Assessment & Plan (10/13/2023 7:38 AM CDT): Discussed the patient's BMI. The BMI is above average. BMI management plan is completed. BMI Follow-up includes: nutrition counseling, exercise counseling and education provided. Assessment & Plan (09/06/2023 9:42 AM PAPER BAGS SEWING MACHINE OPERATOR): Discussed the patient's BMI. The BMI is above average. BMI management plan is completed. BMI Follow-up includes: nutrition counseling, exercise counseling and education provided. Hyperglycemia 09/06/2023 09/06/2023 Positive depression screening 09/06/2023 09/06/2023 Annual physical exam 09/06/2023 024 Assessment & Plan (09/06/2023 9:43 AM PAPER BAGS SEWING MACHINE OPERATOR): Encouraged healthy lifestyle, good nutrition and exercise. Encouraged Calcium and Vitamin D and weight bearing exercise for bone health. Reviewed immunizations Reviewed age appropirate screenings. Orthopedic aftercare 08/09/2023 025 Right knee pain 08/09/2023 09/06/2023 Sinus congestion 08/07/2023 09/06/2023 Assessment & Plan (08/07/2023 7:54 PM PAPER BAGS SEWING MACHINE OPERATOR): Persistent sinusitis symptoms along with cough. Will start doxy b.i.d.. Start antihistamine (Claritin OR Zyrtec), Mucinex 12hour and Steroid nasal spray (Flonase). Push fluids. Rest. Supportive care. If sxs worsen or don\'t improve, pt is to followup in the office. BMI 35.0-35.9,adult 08/03/2023 09/06/19 24 Assessment & Plan (08/07/2023 7:51 PM PAPER BAGS SEWING MACHINE OPERATOR): Discussed the patient's BMI. The BMI is above average. BMI management plan is completed. BMI Follow-up includes: nutrition counseling, exercise counseling and education provided. Assessment & Plan (08/03/2023 8:29 AM PAPER BAGS SEWING MACHINE OPERATOR): Discussed the patient's BMI. The [...] size. Increase water. Avoid sugar sweetened drinks. Morbid obesity 08/03/2023 12/27/2024 Assessment & Plan (11/22/2024 7:17 AM CDT): [...] provided. Assessment & Plan (05/07/2024 8:56 PM PAPER BAGS SEWING MACHINE OPERATOR): Discussed the patient's BMI. The [...] provided. Assessment & Plan (09/06/2023 9:38 AM PAPER BAGS SEWING MACHINE OPERATOR): Discussed the patient's BMI. The BMI is above average. BMI management plan is completed. BMI Follow-up includes: nutrition counseling, exercise counseling and education provided. Patient has an obesity-related condition (not limited to: hypertension, obstructive sleep apnea, osteoarthritis, hyperlipidemia, diabetes, etc.). Therefore, morbid obesity may be documented for patients with a BMI between 35.00-39.99. Assessment & Plan (08/07/2023 7:51 PM PAPER BAGS SEWING MACHINE OPERATOR): Discussed the patient's BMI. The BMI is above average. BMI management plan is completed. BMI Follow-up includes: nutrition counseling, exercise counseling and education provided. Patient has an obesity-related condition (not limited to: hypertension, obstructive sleep apnea, osteoarthritis, hyperlipidemia, diabetes, etc.). Therefore, morbid obesity may be documented for patients with a BMI between 35.00-39.99. Assessment & Plan (08/03/2023 7:45 AM PAPER BAGS SEWING MACHINE OPERATOR): Discussed the patient's BMI. The BMI is above average. BMI management plan is completed. BMI Follow-up includes: nutrition counseling, exercise counseling and education provided. Chronic tubotympanic suppura tive otitis media of left ear 06/24/2023 01/22/2024 Cellulitis of left lower extremity 06/02/2023 09/06/2023 Hypercapnia 06/02/2023 01/22/2024 Assessment & Plan (06/02/2023 4:57 PM PAPER BAGS SEWING MACHINE OPERATOR): Later in the day received critical lab call for a CO2 value at 42. My staff contacted the patient and she was instructed to go to the ER for further evaluation to determine underlying cause. She states throughout the day she has noticed a little bit more shortness of breath. She plans to have her brother drive her to [facility]. Charge nurse was notified of the arrival [...] surgery. Will defer cardiac clearance to her certified orthotist. Her chronic medical conditions are stable. [facility] as instructed her to hold the [...] symptoms worsen or do not respond to [id number] allergy medicines within the next week she [...] provided. Assessment & Plan (08/23/2022 2:19 PM PAPER BAGS SEWING MACHINE OPERATOR): Discussed the patient's BMI. The [...] plans Assessment & Plan (07/18/2022 10:20 AM PAPER BAGS SEWING MACHINE OPERATOR): CT revealed pelvic lipomatosis that [...] 12/20/2022 Assessment & Plan (07/18/2022 10:21 AM PAPER BAGS SEWING MACHINE OPERATOR): CT revealed pelvic lipomatosis that [...] plan, Assessment & Plan (07/08/2022 12:33 PM PAPER BAGS SEWING MACHINE OPERATOR): Patient has had dysuria. She [...] STAT abd/pelvis with and without contrast at [facility]. Check labs STAT. Acute right flank pain 07/08/202204/06 Assessment & Plan (07/18/2022 10:21 AM PAPER BAGS SEWING MACHINE OPERATOR): CT revealed pelvic lipomatosis that [...] plan, Assessment & Plan (07/08/2022 5:58 PM PAPER BAGS SEWING MACHINE OPERATOR): Images from the original note [...] STAT abd/pelvis with and without contrast at [facility]. Check labs STAT. STAT CT Abd/pelvis without [...] 09/06/2023 Assessment & Plan (07/08/2022 12:33 PM PAPER BAGS SEWING MACHINE OPERATOR): Patient has had dysuria. She [...] STAT abd/pelvis with and without contrast at [facility]. Check labs STAT. Assessment & Plan (07/06/2022 8:50 AM PAPER BAGS SEWING MACHINE OPERATOR): Pt presents with dysuria. Urine [...] 35.00-39.99. Assessment & Plan (07/18/2022 10:23 AM PAPER BAGS SEWING MACHINE OPERATOR): Discussed the patient's BMI. The BMI is above average. BMI management plan is completed. BMI Follow-up includes: nutrition counseling, exercise counseling and education provided. Assessment & Plan (07/08/2022 12:30 PM PAPER BAGS SEWING MACHINE OPERATOR): Discussed the patient's BMI. The [...] She has received multiple injections from her senior speech pathologist regarding her knee but yesterday when she [...] 01/23/2022 Assessment & Plan (09/11/2021 11:28 PM PAPER BAGS SEWING MACHINE OPERATOR): Patient has never had a full skin exam. She has quite a few lesions scattered and would benefit from a full exam. Will make referral Annual physical exam 09/11/2021 022 Assessment & Plan (09/11/2021 11:28 PM PAPER BAGS SEWING MACHINE OPERATOR): Encouraged healthy lifestyle, good nutrition and exercise. Encouraged Calcium and Vitamin D and weight bearing exercise for bone health. Reviewed immunizations Reviewed age appropirate screenings. Cough 08/13/2021 01/23/2022 Assessment & Plan (08/13/2021 3:43 PM PAPER BAGS SEWING MACHINE OPERATOR): Patient to presume positive COVID/FLU until results are available and plan to self isolate for up to 10 days from the onset of sxs. Check COVID/FLU test thru [facility] collection site in [place]. Let pt know the newest CDC recommendations [...] future. Assessment & Plan (07/13/2021 11:28 AM PAPER BAGS SEWING MACHINE OPERATOR): I have ordered the patient [...] provided. Assessment & Plan (09/11/2021 11:27 PM PAPER BAGS SEWING MACHINE OPERATOR): Obesity is unchanged. Discussed the patient's BMI. The BMI is above average. BMI management plan is completed. BMI Follow-up includes: nutrition counseling, exercise counseling and education provided. Assessment & Plan (05/29/2021 8:24 PM PAPER BAGS SEWING MACHINE OPERATOR): Obesity is unchanged. Discussed the patient's BMI. The BMI is above average. BMI management plan is completed. BMI Follow-up includes: nutrition counseling, exercise counseling and education provided. Assessment & Plan (05/12/2021 1:26 PM PAPER BAGS SEWING MACHINE OPERATOR): Obesity is unchanged. Discussed the patient's BMI. The BMI is above average. BMI management plan is completed. BMI Follow-up includes: nutrition counseling, exercise counseling and education provided. BMI 37.0-37.9, adult 05/12/2021 05//2 022 Assessment & Plan (09/11/2021 11:27 PM PAPER BAGS SEWING MACHINE OPERATOR): Obesity is unchanged. Discussed the patient's BMI. The BMI is above average. BMI management plan is completed. BMI Follow-up includes: nutrition counseling, exercise counseling and education provided. Assessment & Plan (05/29/2021 8:24 PM PAPER BAGS SEWING MACHINE OPERATOR): Obesity is unchanged. Discussed the patient's BMI. The BMI is above average. BMI management plan is completed. BMI Follow-up includes: nutrition counseling, exercise counseling and education provided. Assessment & Plan (05/12/2021 1:26 PM PAPER BAGS SEWING MACHINE OPERATOR): Obesity is unchanged. Discussed the patient's BMI. The BMI is above average. BMI management plan is completed. BMI Follow-up includes: nutrition counseling, exercise counseling and education provided. Tinea corporis 04/14/2021 01/23/2022 Assessment & Plan (05/31/2021 9:15 PM PAPER BAGS SEWING MACHINE OPERATOR): Improving with Lotrisone. Keep the area clean and dry Assessment & Plan (05/29/2021 8:24 PM PAPER BAGS SEWING MACHINE OPERATOR): Lotrisone to pharmacy. Encouraged her to keep the area clean and dry use her dryer to dry the skin before applying the cream. She is to call if symptoms worsen or do not resolve. Need for immunization against influenza 04/14/2021 05/31/2021 Assessment & Plan (05/29/2021 8:24 PM PAPER BAGS SEWING MACHINE OPERATOR): Fluid updated in the office Medicare annual wellness visit, subsequent 04/13/2021 05/31/2021 Assessment & Plan (05/29/2021 8:23 PM PAPER BAGS SEWING MACHINE OPERATOR): Encouraged healthy lifestyle, good nutrition [...] 12/30/2020 Assessment & Plan (08/31/2020 9:31 AM PAPER BAGS SEWING MACHINE OPERATOR): Error. This should be right calf but PT order sent and corrected so unable to remove. Fatigue 08/31/2020 09/06/2023 Assessment & Plan (04/06/2023 7:43 PM CDT): Probably multifactorial. Check labs and followup to re-evaluate Assessment & Plan (05/02/2022 9:16 PM CDT): Probably multifactorial. Check labs and followup to re-evaluate Assessment & Plan (08/31/2020 9:34 AM PAPER BAGS SEWING MACHINE OPERATOR): Probably multifactorial. Check labs and followup to re-evaluate Pain in both lower extremities 08/31/2020 09/06/2023 Assessment & Plan (09/01/2023 3:41 PM PAPER BAGS SEWING MACHINE OPERATOR): Cramping lower leg pain has [...] 021 Assessment & Plan (08/31/2020 9:33 AM PAPER BAGS SEWING MACHINE OPERATOR): Obesity is unchanged. Discussed the patient's BMI. The BMI is above average. BMI management plan is completed. BMI Follow-up includes: nutrition counseling, exercise counseling and education provided. Pain of right calf 08/26/2020 Assessment & Plan (08/31/2020 9:31 AM PAPER BAGS SEWING MACHINE OPERATOR): This is a significant, separately identifiable problem that was evaluated and managed on the same day as the wellness exam Unable to rule out DVT with her calf pain/sxs. Check STAT Venous doppler. Recvd Results and discussed with patient via phone. Negative for DVT. Recommend PT. Prefers [place] Annual physical exam 08/24/2020 021 Assessment & Plan (08/31/2020 9:34 AM PAPER BAGS SEWING MACHINE OPERATOR): Encouraged healthy lifestyle, good nutrition and exercise. Encouraged Calcium and Vitamin D and weight bearing exercise for bone health. Reviewed immunizations Reviewed age appropirate screenings. Dizziness 05/07/2020 09/06/2023 Assessment & Plan (05/14/2020 9:35 PM PAPER BAGS SEWING MACHINE OPERATOR): Suspect the dizziness is inner [...] imaging. Assessment & Plan (05/07/2020 1:49 PM PAPER BAGS SEWING MACHINE OPERATOR): Declines to report to er [...] 05/14/2020 Assessment & Plan (05/07/2020 1:49 PM PAPER BAGS SEWING MACHINE OPERATOR): Declines to report to er [...] 12/30/2020 Assessment & Plan (05/07/2020 1:49 PM PAPER BAGS SEWING MACHINE OPERATOR): Declines to report to er [...] provided Assessment & Plan (05/31/2021 9:15 PM PAPER BAGS SEWING MACHINE OPERATOR): Mammogram order provided Assessment & Plan (02/18/2020 9:47 PM CDT): Mammogram order provided today Medicare annual wellness visit, subsequent 02/15/2020 02/15/2020 Precordial pain 09/04/2019 09/06/2023 Assessment & Plan (08/07/2023 7:50 PM PAPER BAGS SEWING MACHINE OPERATOR): Workup in the hospital. Cardiology [...] inhaler. Assessment & Plan (07/13/2021 11:26 AM PAPER BAGS SEWING MACHINE OPERATOR): The patient will continue with [...] 020 Assessment & Plan (08/13/2019 8:59 AM PAPER BAGS SEWING MACHINE OPERATOR): Encouraged healthy lifestyle, good nutrition and exercise. Encouraged Calcium and Vitamin D and weight bearing exercise for bone health. Reviewed immunizations Reviewed age appropirate screenings. Obesity, morbid, BMI 40.0-49.9 08/13/2019 09/23/2020 Assessment & Plan (08/26/2020 7:10 AM PAPER BAGS SEWING MACHINE OPERATOR): Obesity is unchanged. Discussed the patient's BMI. The BMI is above average. BMI management plan is completed. BMI Follow-up includes: nutrition counseling, exercise counseling and education provided. Assessment & Plan (05/14/2020 9:33 PM PAPER BAGS SEWING MACHINE OPERATOR): Obesity is unchanged. Discussed the [...] provided. Assessment & Plan (08/13/2019 8:58 AM PAPER BAGS SEWING MACHINE OPERATOR): Obesity is unchanged. Discussed the [...] change Assessment & Plan (08/13/2019 9:01 AM PAPER BAGS SEWING MACHINE OPERATOR): This is a significant, separately [...] 01/22/2024 Assessment & Plan (09/06/2023 9:42 AM PAPER BAGS SEWING MACHINE OPERATOR): Probably multifactorial. Check labs and followup to re-evaluate Assessment & Plan (09/03/2021 11:28 AM PAPER BAGS SEWING MACHINE OPERATOR): She notes increased fatigue and [...] re-evaluate Assessment & Plan (08/13/2019 9:08 AM PAPER BAGS SEWING MACHINE OPERATOR): Probably multifactorial. Check labs and followup to re-evaluate Check labs prior to next visit BMI 40.0-44.9, adult 08/02/2019 020 Assessment & Plan (08/13/2019 8:57 AM PAPER BAGS SEWING MACHINE OPERATOR): Obesity is unchanged. Discussed the patient's BMI. The BMI is above average. BMI management plan is completed. BMI Follow-up includes: nutrition counseling, exercise counseling and education provided. Assessment & Plan (08/02/2019 7:21 AM PAPER BAGS SEWING MACHINE OPERATOR): Obesity is unchanged. Discussed the patient's BMI. The BMI is above average. BMI management plan is completed. BMI Follow-up includes: nutrition counseling, exercise counseling and education provided. Morbid obesity 08/02/2019 08/13/2019 Assessment & Plan (08/02/2019 7:20 AM PAPER BAGS SEWING MACHINE OPERATOR): Obesity is unchanged. Discussed the patient's BMI. The BMI is above average. BMI management plan is completed. BMI Follow-up includes: nutrition counseling, exercise counseling and education provided. Acute non-recurrent maxillary sinusitis 08/02/2019 08/13/2019 Assessment & Plan (08/02/2019 7:47 AM PAPER BAGS SEWING MACHINE OPERATOR): Start antibiotic, antihistamine, Mucinex and [...] 21 Assessment & Plan (05/14/2020 9:33 PM PAPER BAGS SEWING MACHINE OPERATOR): Completed Doxy and steroid. No [...] is to followup in the office. BMI 38.0-38.9,adult 11/01/2018 01/13/20 22 Assessment & [...] p.r.n. Assessment & Plan (08/13/2019 8:59 AM PAPER BAGS SEWING MACHINE OPERATOR): Continue with NSAIDs prn Atheroscler of [place] artery of both legs with intermit claudication 10/31/2018 12/20/2022 Assessment & Plan (09/11/2021 11:23 PM PAPER BAGS SEWING MACHINE OPERATOR): Continue per vascular. She is on aspirin and statin Assessment & Plan (12/24/2020 9:03 AM CDT): Sxs stable. On ASA, statin and encouraged daily exercise. Assessment & Plan (02/18/2020 9:43 PM CDT): Continue per cardio. On ASA and statin Assessment & Plan (08/13/2019 8:45 AM PAPER BAGS SEWING MACHINE OPERATOR): Continues with Dr. Alonso salmeron Assessment & Plan (11/01/2018 11:00 PM CDT): Pt sxs well controlled. On ASA Coronary artery disease of n ative artery of [place] heart with stable angina pectoris 10/31/2018 12/30/2020 Assessment & Plan (08/13/2019 8:36 AM PAPER BAGS SEWING MACHINE OPERATOR): On ASA and Nitrate. Continue [...] regimen Assessment & Plan (08/13/2019 8:46 AM PAPER BAGS SEWING MACHINE OPERATOR): Continue current regimen Assessment & [...] potassium Assessment & Plan (09/11/2021 11:26 PM PAPER BAGS SEWING MACHINE OPERATOR): Bp is stable/in acceptable range for any co-morbidities. Encouraged to limit sodium intake and exercise for weight control. Currently stable without medication Assessment & Plan (05/29/2021 8:19 PM PAPER BAGS SEWING MACHINE OPERATOR): Bp is stable/in acceptable range for any co-morbidities. Encouraged to limit sodium intake and exercise for weight control. Continue Lasix is helping with the swelling and addition. Blood pressure stable Assessment & Plan (05/24/2021 10:38 AM PAPER BAGS SEWING MACHINE OPERATOR): Continue Lasix potassium Assessment & Plan (12/24/2020 9:05 AM CDT): Bp is stable/in acceptable range for any co-morbidities. Encouraged to limit sodium intake and exercise for weight control. Assessment & Plan (08/31/2020 9:32 AM PAPER BAGS SEWING MACHINE OPERATOR): Bp is stable/in acceptable range for any co-morbidities. Encouraged to limit sodium intake and exercise for weight control. Stable with laxis currently Assessment & Plan (02/18/2020 9:44 PM CDT): Bp is stable/in acceptable range for any co-morbidities. Encouraged to limit sodium intake and exercise for weight control. Assessment & Plan (08/13/2019 8:57 AM PAPER BAGS SEWING MACHINE OPERATOR): Bp is stable/in acceptable range [...] difficulty pulling them. Recommend finding some on [employer] that fit her calf that she can zip on and off. Showed them to her on [employer] and where to order them. She states she will try to get them. Assessment & Plan (05/31/2021 9:16 PM PAPER BAGS SEWING MACHINE OPERATOR): Improving slowly. May have been due to the Relafen. She is on 60 of Lasix with potassium 10 mEq daily. Continue with current plan. Keep legs elevated. Utilize compressi to improve cleared. on hose. Call if symptoms worsen or do not continue to improve. Assessment & Plan (05/29/2021 8:23 PM PAPER BAGS SEWING MACHINE OPERATOR): Persistent lower extremity edema that [...] CMP. Assessment & Plan (05/24/2021 10:39 AM PAPER BAGS SEWING MACHINE OPERATOR): Patient that her swelling was improving since discharge for over the last day or so it seems to be increasing. Will increase the Lasix to 40mg Start K 10meq daily Recheck labs in 5 days Assessment & Plan (08/31/2020 9:33 AM PAPER BAGS SEWING MACHINE OPERATOR): Continue lasix Palpitations 12/08/2015 12/30/2020 Overview (10/09/2016): Palpitations Other abnormal glucose 11/11/201508/31 Asthma 10/14/2015 12/24/2020 Assessment & Plan (08/13/2019 8:49 AM PAPER BAGS SEWING MACHINE OPERATOR): Continue with current regimen and with Pulmonary Assessment & Plan (11/01/2018 10:53 PM CDT): Currently Stable with regimen. Monitor closely with current allergy season. Followup Dr. Gomez as directed. Menopause 10/14/2015 12/30/2020 Cervical pain (neck) 10/14/2015 023 Encounters Date Type Department Care Team Description 06/06/2025 9:30 AM PAPER BAGS SEWING MACHINE OPERATOR Clinical Support [address] [place] [phone] Left flank pain (Primary Dx); Dysuria 06/06/2025 Orders Only [address] [place] [phone] Alee Elizondo PA Urinary tract infection associated with catheterization of urinary tract, unspecified indwelling urinary catheter type, sequela (Primary Dx) 06/06/[address] [place] [phone] Alee Elizondo PA Symptom Based Call; Medical Question/Miscellaneou s 05/29/[address] [place] [phone] Alee Elizondo PA 05/27/[address] [place] [phone] Alee Elizondo PA 05/27/2025 Results Follow-Up [address] [place] [phone] Alee Elizondo PA POCT urinalysis dipstick, Urine culture Urine, clean voided, Comprehensive metabolic panel 05/24/2025 9:30 AM PAPER BAGS SEWING MACHINE OPERATOR Office Visit [address] [phone] Alee Elizondo PA Pyelonephritis (Primary Dx); Urinary retention; Dysuria; BMI 34.0-34.9,adult; Obesity (BMI 30-39.9) 05/21/2025 [facility] IP Outreach [address] [address] Allie East LPN 05/20/[address] [phone] Alee Elizondo PA JUSTIN Questions 05/17/2025 1:35 PM PAPER BAGS SEWING MACHINE OPERATOR - 05/20/2025 1:41 PM PAPER BAGS SEWING MACHINE OPERATOR Hospital Encounter [facility] [address] [phone] Titus Garcia MD Chowdhury, Farhanaz, MD Acute pyelonephritis (Primary Dx); Left flank pain [R10.A2]; Acute renal failure, unspecified acute renal failure type [N17.9] Discharge Disposition: Discharge to home or self care 05/17/2025 8:15 AM PAPER BAGS SEWING MACHINE OPERATOR - 05/17/2025 11:59 PM PAPER BAGS SEWING MACHINE OPERATOR Hospital Encounter [facility] Diagnostic Imaging [address] [place] [phone] Calcium oxalate crystals in urine Discharge Disposition: Discharge to home or self care 05/17/2025 Results Follow-Up [address] [place] [address] Alee Elizondo PA XR Abdomen 1 View AP 05/17/2025 Nurse Triage [address] [place] [phone] Alee Elizondo PA 05/16/[address] [place] [phone] Alee Elizondo PA 05/13/2025 8:20 AM PAPER BAGS SEWING MACHINE OPERATOR Office Visit [facility] Urology [address] [place] [address] [address] [place] [address] [place] [address] Urinary retention (Primary Dx) 05/12/2025 Results Follow-Up [address] [phone] Alee Elizondo PA Urine culture Urine, clean voided, Urinalysis reflex to microscopic and culture Urine, REFLEXIVE URINE CULTURE, Urine culture 05/09/2025 11:15 AM PAPER BAGS SEWING MACHINE OPERATOR Office Visit [facility] and Sports Medicine [address] [place] [phone] Michael Motta MD Chronic pain of right knee (Primary Dx); Status post total knee replacement using cement, right 05/09/2025 10:44 AM PAPER BAGS SEWING MACHINE OPERATOR - 05/09/2025 11:59 PM PAPER BAGS SEWING MACHINE OPERATOR Hospital Encounter [facility] [place] [address] Chronic pain of right knee; Status post total knee replacement using cement, right Discharge Disposition: Discharge to home or self care 04/25/2025 8:00 AM CDT Office Visit [address] [place] [phone] Alee Elizondo PA Medicare annual wellness visit, subsequent (Primary Dx); Fatigue, unspecified type; Anemia, unspecified type; Dysuria; Mixed hyperlipidemia; Rheumatoid arthritis involving multiple sites with positive rheumatoid factor (HCC); Moderate episode of recurrent major depressive disorder (HCC); Obesity (BMI 30-39.9); BMI 34.0-34.9,adult 04/25/2025 Results Follow-Up [facility] Medicine [address] [facility] [address] [place] [address] Alee Elizondo PA POCT urinalysis dipstick, CBC with auto differential, Comprehensive metabolic panel, Additional followed-up results: 6 04/15/2025 8:40 AM CDT Office Visit [facility]) [facility] Urology [address] [facility] [address]th [place] [address] [place] [address] Michelle Sanders PA Urinary retention (Primary Dx); Suprapubic catheter (HCC); Pelvic lipomatosis 04/11/2025 Nurse Triage [address] [place] [address] Alee Elizondo PA 04/05/2025 8:30 AM CDT Office Visit [facility] Cardiology [address] [facility] [address] [place] [address] mAy Mayes NP History of chest pain (Primary Dx); Venous insufficiency (chronic) (peripheral); OWEN on CPAP 04/05/2025 Telephone [facility] Pulmonary [place] [address] [place] [address] Magaly Snider NP 04/04/2025 1:45 PM CDT Immunization [address] [place] [address] Flu vaccine need (Primary Dx) 03/28/2025 Telephone [facility] [address] [place] [address] Codi Branham 03/28/2025 Results Follow-Up [facility] [address] [place] [address] Sangita Farrar PA CBC with auto differential, Comprehensive metabolic panel 03/27/2025 8:30 AM CDT Office Visit [facility] [address] [place] [phone] Sangita Farrar PA Rheumatoid arthritis involving multiple sites with positive rheumatoid factor (HCC) (Primary Dx); Primary osteoarthritis involving multiple joints; Encounter for medication monitoring 03/27/2025 Telephone [facility] [address] [place] [phone] Sangita Farrar PA 03/21/2025 10:20 AM CDT Office Visit [facility]) - [facility] Urology [address] [place] [address] [address] [place] [address] Teofilo Gongora MD Urinary retention (Primary Dx) 03/07/2025 Results Follow-Up [facility]) [facility] Urology [address] [place] [address] [address] [place] [address] Michelle Sanders PA Urine culture Urine, suprapubic catheter from Last 3 Months Immunizations Immunization Administration Dates Next Due COVID-19 mRNA ([employer]) 0.3 m L (30 mcg) vaccine (12 years and up) 08/17/2023,04/14/2023 Influenza, Quad, Adjuvantate d, Intramuscular 03/30/2022 Influenza, Quadrivalent, Hig h Dose, Preservative Free, Intrr 04/06/2023,04/14/2021 Influenza, Quadrivalent, Spl it, Intramuscular 03/29/2018 Influenza, Quadrivalent, Spl it, Preservative Free, Intramuscular 04/10/2020,03/22/2019,05/20/2017,05/03 Influenza, Split 04/01/2011,03/26/2010 Influenza, Trivalent, High D ose, Split, Preservative Free, Intramuscular 04/04/2025,04/11/2024,04/06/2023 Influenza, Trivalent, IM (MDV) 03/23/2012 Influenza, Trivalent, [...] school HYSTERECTOMY 07/04/1989 - 07/03/1990 Hysterectomy CHOLECYSTECTOMY late KIDNEY STONE SURGERY ENDOVENOUS ABLATION SAPHENOU S VEIN W/ LASER 10/02/2016 - 10/31/2016 REPLACEMENT TOTAL KNEE 05/04/2023 Left TOTAL KNEE ARTHROPLASTY 05/30/2024 Right JOINT REPLACEMENT Medical History Medical History Date Comments Calculus of kidney Nephrolithias is Arthritis Allergic rhinitis Autoimmune disease GERD (gastroesophageal reflux disease) Sinusitis HL (hearing loss) right ear hear ing aide Congenital malformation left arm Sleep apnea wears cpap night ly Obesity RA (rheumatoid arthritis) Prediabetes diet controlled Osteoporosis Ovarian cyst Urinary incontinence Fibroid Menopause ovarian failure 1989 Asthma Family History Medical History Relation Name Comments Allergies Brother Allergies; Arthritis Father Salomón COPD Father Salomón Cancer Father Salomón Colon cancer Father Salomón Cancer, colon; Coronary artery disease Father Salomón Mariela nary artery disease; Diabetes Father Salomón Diabetes mellit us; Kidney disease Father Salomón Diabetes Mother Jeanette Diabetes mellit us; Heart disease Mother Jeanette Heart failure Mother Jeanette Congestive hea rt failure; Hypertension Mother Jeanette Stroke Mother Jeanette Stroke; Broken bones Neg [...] any time in the past 12 m [facility], were you homeless or living in [...] any time in the past 12 m [facility], were you homeless or living in a care home (including now)? No 05/20/2025 [facility] Utilities Answer Date Recorded In [...] on file Legal Sex Female 8:04 PM PAPER BAGS SEWING MACHINE OPERATOR Gender Identity Female 02/15/2020 6:08 PM CDT Sexual Orientation Not on file Last Filed Vital Signs Vital Sign Reading Time Taken Comments Blood Pressure 120/76 05/24/2025 9:19 AM PAPER BAGS SEWING MACHINE OPERATOR Pulse 64 05/24/2025 9:19 AM PAPER BAGS SEWING MACHINE OPERATOR Temperature 37 C (98.6 F) 05/24/2025 9:19 AM PAPER BAGS SEWING MACHINE OPERATOR Respiratory Rate 18 05/20/2025 10:35 AM PAPER BAGS SEWING MACHINE OPERATOR Oxygen Saturation 94% 05/24/2025 9:19 AM PAPER BAGS SEWING MACHINE OPERATOR Inhaled Oxygen Concentration - - Weight 83 kg (183 lb) 05/24/2025 9:19 AM PAPER BAGS SEWING MACHINE OPERATOR Height 154.9 cm (5' 1) 05/24/2025 9:19 AM PAPER BAGS SEWING MACHINE OPERATOR Body Mass Index 34.58 05/24/2025 9:19 AM PAPER BAGS SEWING MACHINE OPERATOR Plan of Treatment Health Maintenance Due Date Last Done Comments Hepatitis B Screening 1973 Covid-19 Vaccine ( season) 2025 08/17/2023, 04/14/2023, 04/14/2023, Additional history exists Breast Cancer Screening-Mammogram 10/04/2025 10/04/2024, 08/02/2023, 05/31/2022, Additional history exists Well Visit 65+ 04/25/2026 04/25/2025, 04/0 03/2025, 04/11/2024, Additional history exists Depression Screening 05/24/2026 05/24/2025, 04/25/2025, 02/20/2025, Additional history exists Fall Risk Assessment 05/24/2026 05/24/2025, 05/20/2025, 04/25/2025, Additional history exists Osteoporosis Screening-Bone Density Scan 11/08/2026 11/08/2024, 04/12/2023, 01/27/2017, Additional history exists Colon Cancer Screening-Colonoscopy 02/22/2030 02/22/2025, 07/27/2021, 04/19/2016, Additional history exists DTaP/Tdap/Td Vaccine (3 - Td or Tdap) 03/08/2031 03/08/2021, 08/20/2019 Zoster Vaccine Completed 12/13/2017, 12/02, 10/10/2017 Hepatitis C Screening Completed 06/04/2020 Pneumococcal vaccine 65+ Completed 023, 08/21/2020, 07/06/2014, Additional history exists Colon Cancer Screening-CT Colonography Discontinued 02/22/2025, 07/27/2021, 04/19/2016, Additional history exists Colon Cancer Screening-DNA Stool Discontinued 02/22/2025, 07/27/2021, 04/19/2016, Additional history exists Colon Cancer Screening-FIT Discontinued 02/22, 07/27/2021, 04/19/2016, Additional history exists Colon Cancer Screening-Sigmoidoscopy Discontinued 02/22/2025, 07/27/2021, 04/19/2016, Additional history exists Influenza Vaccine Completed 04/04/2025, , 04/06/2023, Additional history exists Medical Devices Implanted Type Area Data Architect Manager Device Identifier Shelf Expiration Date Model / Serial / Lot [employer] Simplex P Radiopaque Full Dose Cement Bone Sterile 6191-1-010 - [id number] Implanted:Qty: 2 on 05/04/2023 by Michael Motta MD at [facility] Bone Cement Left: Knee [employer] 05/03/2025 6191-1-010 / [id number] / [id number] [employer] Simplex P Radiopaque Full Dose Cement Bone Sterile 6191-1-010 - [id number] Implanted:Qty: 2 on 05/30/2024 by Michael Motta MD at [facility] Bone Cement Right: Patella [employer] [id number] 05/03/2026 6191-1 / / [id number] [employer] Persona 14mm 30+ Mm Knee Tibia Taper Extension Stem [id number] - [id number] - [id number] Implanted:Qty: 1 on 05/04/2023 by Michael Motta MD at [facility] Left: Knee [employer] [id number] 02/15/2033 [id number] / [id number] 14 / [id number] [employer] Persona Cemented Cruciate Retaining Knee Left 7 Narrow Component [id number] - [id number] 1 - [id number] Implanted:Qty: 1 on 05/04/2023 by Michael Motta MD at [facility] Left: Knee [employer] [id number] 10/25/2032 [id number] / [id number] 01 / [id number] [employer] Baseplate Tibial Knee Cemented Left Fixed Stemmed Persona Size D Tivanium [id number] - [id number] 1 - [id number] Implanted:Qty: 1 on 05/04/2023 by Michael Motta MD at [facility] Left: Knee [employer] [id number] 09/11/2032 [id number] / [id number] 01 / [id number] [employer] Persona 11mm Knee Left 6-7 C-D Insert Articular Vivacit-E Sterile [id number] - [id number] 1 - [id number] Implanted:Qty: 1 on 05/04/2023 by Michael Motta MD at [facility] Left: Knee [employer] [id number] 12/28/2025 [id number] / [id number] 11 / [id number] [employer] Persona 32mm Knee Component Patellar All Poly Latex Free 05-3426-946-32 - [id number] Implanted:Qty: 1 on 05/04/2023 by Michael Motta MD at [facility] [employer] 12/19/2027 [id number] / / [id number] [employer] Baseplate Tibial Knee Cemented Right Fixed Stemmed Persona Size C Tivanium [id number] - [id number] Implanted:Qty: 1 on 05/30/2024 by Michael Motta MD at [facility] Right: Knee [employer] [id number] 03/22/2033 [id number] / / [id number] [employer] Persona 29mm Knee Component Patellar All Poly Latex Free [id number] - [id number] Implanted:Qty: 1 on 05/30/2024 by Michael Motta MD at [facility] Right: Knee [employer] [id number] 12/18/2028 [id number] / / [id number] [employer] Persona 13mm Cruciate Retain Knee Right 6-7 Cd Insert Articular Latex Free [id number] - [id number] Implanted:Qty: 1 on 05/30/2024 by Michael Motta MD at [facility] Right: Patella [employer] [id number] 05/04/2025 [id number] / / [id number] [employer] Persona Cruciate Retaining Cemented Knee Right 7 Narrow Component [id number] - [id number] Implanted:Qty: 1 on 05/30/2024 by Michael Motta MD at [facility] Right: Knee [employer] [id number] 12/27/2033 [id number] / / [id number] [employer] Persona 14mm 30+ Mm Knee Tibia Taper Extension Stem [id number] - [id number] Implanted:Qty: 1 on 05/30/2024 by Michael Motta MD at [facility] Right: Knee [employer] [id number] 04/11/2034 [id number] / / [id number] Procedures Procedure Name Priority Date/Time Associated Diagnosis Comments POCT URINALYSIS DIPSTICK Routine 06/06/2025 9:45 AM PAPER BAGS SEWING MACHINE OPERATOR Left flank pain Dysuria COMPREHENSIVE METABOLIC PANEL Routine 05/27/2025 10:48 AM PAPER BAGS SEWING MACHINE OPERATOR Pyelonephritis POCT URINALYSIS DIPSTICK Routine 05/24/2025 9:43 AM PAPER BAGS SEWING MACHINE OPERATOR Dysuria URINE CULTURE Routine 05/24/2025 9:43 AM PAPER BAGS SEWING MACHINE OPERATOR Dysuria EGFR Routine 05/20/2025 5:36 AM PAPER BAGS SEWING MACHINE OPERATOR DIFFERENTIAL AUTO Routine 05/20/2025 5:3 6 AM PAPER BAGS SEWING MACHINE OPERATOR BASIC METABOLIC PANEL Routine 05/20/2025 5:36 AM PAPER BAGS SEWING MACHINE OPERATOR CBC WITH AUTO DIFFERENTIAL Routine 05/20/2025 5:36 AM PAPER BAGS SEWING MACHINE OPERATOR EGFR Routine 05/19/2025 5:44 AM PAPER BAGS SEWING MACHINE OPERATOR DIFFERENTIAL AUTO Routine 05/19/2025 5:4 4 AM PAPER BAGS SEWING MACHINE OPERATOR BASIC METABOLIC PANEL Routine 05/19/2025 5:44 AM PAPER BAGS SEWING MACHINE OPERATOR CBC WITH AUTO DIFFERENTIAL Routine 05/19/2025 5:44 AM PAPER BAGS SEWING MACHINE OPERATOR EGFR Routine 05/18/2025 12:31 PM PAPER BAGS SEWING MACHINE OPERATOR DIFFERENTIAL AUTO Routine 05/18/2025 12: 31 PM PAPER BAGS SEWING MACHINE OPERATOR BASIC METABOLIC PANEL Routine 05/18/2025 12:31 PM PAPER BAGS SEWING MACHINE OPERATOR CBC WITH AUTO DIFFERENTIAL Routine 05/18/2025 12:31 PM PAPER BAGS SEWING MACHINE OPERATOR BLOOD CULTURE STAT 05/17/2025 3:38 PM PAPER BAGS SEWING MACHINE OPERATOR BLOOD CULTURE STAT 05/17/2025 3:29 PM PAPER BAGS SEWING MACHINE OPERATOR SEPSIS LACTATE WITH REFLEX STAT 05/17/2025 2:22 PM PAPER BAGS SEWING MACHINE OPERATOR CT ABDOMEN PELVIS W CONTRAST ED 05/17/2025 2:14 PM PAPER BAGS SEWING MACHINE OPERATOR EGFR STAT 05/17/2025 12:23 PM PAPER BAGS SEWING MACHINE OPERATOR DIFFERENTIAL AUTO STAT 05/17/2025 12: 23 PM PAPER BAGS SEWING MACHINE OPERATOR LIPASE STAT 05/17/2025 12:23 PM PAPER BAGS SEWING MACHINE OPERATOR COMPREHENSIVE METABOLIC PANEL STAT 05/17/2025 12:23 PM PAPER BAGS SEWING MACHINE OPERATOR CBC WITH AUTO DIFFERENTIAL STAT 05/17/2025 12:23 PM PAPER BAGS SEWING MACHINE OPERATOR URINALYSIS, MICROSCOPIC ONLY STAT 05/17/2025 12:02 PM PAPER BAGS SEWING MACHINE OPERATOR URINE CULTURE STAT 05/17/2025 12:02 PM PAPER BAGS SEWING MACHINE OPERATOR URINALYSIS AND REFLEX TO MICROSCOPIC AND CULTURE STAT 05/17/2025 12:02 PM PAPER BAGS SEWING MACHINE OPERATOR XR ABDOMEN AP 1 VIEW Schedule Routine, Read Routine (OP Routine) 05/17/2025 8:39 AM PAPER BAGS SEWING MACHINE OPERATOR Calcium oxalate crystals in urine URINE CULTURE Routine 05/11/2025 12:11 PM PAPER BAGS SEWING MACHINE OPERATOR REFLEXIVE URINE CULTURE Routine 05/11/2025 12:11 PM PAPER BAGS SEWING MACHINE OPERATOR URINE CULTURE Routine 05/11/2025 12:11 PM PAPER BAGS SEWING MACHINE OPERATOR Dysuria URINALYSIS AND REFLEX TO MICROSCOPIC AND CULTURE Routine 05/11/2025 12:11 PM PAPER BAGS SEWING MACHINE OPERATOR Dysuria XR KNEE RIGHT 3 VIEWS Schedule Routine, Read Routine (OP Routine) 05/09/2025 10:51 AM PAPER BAGS SEWING MACHINE OPERATOR Chronic pain of right knee Status post total knee replacement using cement, right FERRITIN Routine 04/26/2025 12:53 PM CDT IRON PROFILE W/ IBC Routine 04/26/2025 1 2:53 PM CDT VITAMIN D 25 HYDROXY Routine 04/26/2025 12:53 PM CDT BMI 34.0-34.9,adult Obesity (BMI 30-39.9) VITAMIN B12 Routine 04/26/2025 12:53 PM CDT Fatigue, unspecified type TSH Routine 04/26/2025 12:53 PM CDT Fatigue, unspecified type COMPREHENSIVE METABOLIC PANEL Routine 04/26/2025 12:53 PM CDT Fatigue, unspecified type CBC WITH AUTO DIFFERENTIAL Routine 04/26/2025 12:53 PM CDT Fatigue, unspecified type POCT URINALYSIS DIPSTICK Routine 04/25/2025 8:45 AM CDT Dysuria URINE CULTURE Routine 04/25/2025 8:39 AM CDT Dysuria COMPREHENSIVE METABOLIC PANEL Routine 03/27/2025 2:22 PM CDT Encounter for medication monitoring CBC WITH AUTO DIFFERENTIAL Routine 03/27/2025 2:22 PM CDT Encounter for medication monitoring COLONOSCOPY 02/22/2025 8:21 AM CDT DEXA TBS AXIAL SKELETON BONE DENSITY 1 OR MORE SITES Schedule Routine, Read Routine (OP Routine) 11/08/2024 10:31 AM CDT Age-related osteoporosis without current pathological fracture SCREENING MAMMOGRAM BILATERAL W DYLLAN Schedule Routine, Read Routine (OP Routine) 10/04/2024 11:00 AM CDT Breast cancer screening by mammogram HEPATITIS C ANTIBODY Routine 06/04/2020 10:29 AM PAPER BAGS SEWING MACHINE OPERATOR Encounter for screening for other viral diseases Chronic fatigue from Last 3 Months or Most Recently Relevant to Health Maintenance Results * (ABNORMAL) POCT urinalysis dipstick (06/06/2025 9:45 AM PAPER BAGS SEWING MACHINE OPERATOR) Pathologist [facility] Glucose, ur, POC Negative Negative Bilirubin, ur, POC Negative Negative Ketones, ur, POC Negative Negative Specific [place], POC 1.015 1.003 - 1.030 Blood, ur, POC Trace(A) Negative pH, ur, POC 6.5 5.0 - 8.0 Protein, ur, POC Negative Negative Urobilinogen, urine, POC 0.2 0.2 - 1.0 mg/dL Nitrite, ur, POC Positive(A) Negative Leukocytes, ur, POC Moderate(A) Negative Lot Number [id number] Urine 06/06/2025 9:45 AM PAPER BAGS SEWING MACHINE OPERATOR Alee OSMAN POINT OF CARE TEST ORDERAB LES Edited Result - Final * (ABNORMAL) Comprehensive metabolic panel (05/27/2025 10:48 AM PAPER BAGS SEWING MACHINE OPERATOR) Pathologist [facility] Glucose 84 65 - 99 mg/dL [facility] Comment: Fasting reference interval BUN 23 7 - 25 mg/dL [facility] Creatinine 1.07(H) 0.50 - 1.05 mg/dL [facility] eGFR 56(L) > OR = 60 mL/min/1.7 3m2 [facility] BUN/creat ratio 21 6 - 22 (calc) [facility] Sodium 139 135 - 146 mmol/L [facility] Potassium, pl 4.1 3.5 - 5.3 mmol/L [facility] Chloride 107 98 - 110 mmol/L [facility] CO2 22 20 - 32 mmol/L [facility] Calcium 9.7 8.6 - 10.4 mg/dL [facility] Protein, sr 6.8 6.1 - 8.1 g/dL [facility] Albumin 4.1 3.6 - 5.1 g/dL [facility] GLOBULIN 2.7 1.9 - 3.7 g/dL (calc) [facility] Alb/glob ratio 1.5 1.0 - 2.5 (calc) [facility] Bilirubin, total 0.5 0.2 - 1.2 mg/dL [facility] Alk phos 131 37 - 153 U/L [facility] AST 21 10 - 35 U/L [facility] ALT (SGPT) 18 6 - 29 U/L [facility] Blood 05/27/2025 10:4 8 AM PAPER BAGS SEWING MACHINE OPERATOR 05/27/2025 10:48 AM PAPER BAGS SEWING MACHINE OPERATOR Alee OSMAN LAB BLOOD ORDERABLES Final Result [facility] [address] [place] [address] * (ABNORMAL) POCT urinalysis dipstick (05/24/2025 9:43 AM PAPER BAGS SEWING MACHINE OPERATOR) Glucose, ur, POC Negative Negative Bilirubin, ur, POC Negative Negative Ketones, ur, POC Negative Negative Specific [place], POC 1.025 1.003 - 1.030 Blood, ur, POC Trace(A) Negative pH, ur, POC 5.5 5.0 - 8.0 Protein, ur, POC Negative Negative Urobilinogen, urine, POC 0.2 0.2 - 1.0 mg/dL Nitrite, ur, POC Negative Negative Leukocytes, ur, POC Moderate(A) Negative Lot Number [id number] Urine 05/24/2025 9:43 AM PAPER BAGS SEWING MACHINE OPERATOR us Alee OSMAN POINT OF CARE TEST ORDERAB LES Edited Result - Final * (ABNORMAL) Urine culture Urine, clean voided (05/24/2025 9:43 AM PAPER BAGS SEWING MACHINE OPERATOR) Urine culture (A) [facility] Comment: CULTURE, URINE, ROUTINE Micro Number: [id number] Test Status: Final Specimen Source: Urine, clean catch Specimen Quality: Adequate Result: 10,000-49,000 CFU/mL of Pseudomonas aeruginosa Ps.aeruginosa INT SURESH AMIKACIN S 4 CEFTAZIDIME R >=32 CIPROFLOXACIN S 0.5 GENTAMICIN S 2 IMIPENEM S 2 LEVOFLOXACIN S 1 MEROPENEM S 0.5 S = Susceptible I = Intermediate R = Resistant NS = Not susceptible SDD = Susceptible Dose Dependent * = Not Tested NR = Not Reported NN = See Therapy Comments Urine, clean voided 05/24/2025 9:43 AM PAPER BAGS SEWING MACHINE OPERATOR 05/25/2025 1:21 AM PAPER BAGS SEWING MACHINE OPERATOR us Alee OSMAN LAB MICROBIOLOGY - GENERAL ORDERABLES Final Result [facility] [address] [place] [address] * (ABNORMAL) eGFR (05/20/2025 5:36 AM PAPER BAGS SEWING MACHINE OPERATOR) eGFR 49(L) >=60 mL/min/1. 73 m2 Comment: Interpretive Data Reference Interval Normal >/= 90 mL/min/1.73m2 Mildly decreased* 60 - 89 mL/min/1.73m2 Mildly to moderately decreased 45 - 59 mL/min/1.73m2 Moderately to severely decreased 30 - 44 mL/min/1.73m2 Severely decreased 15 - 29 mL/min/1.73m2 Kidney Failure < 15 mL/min/1.73m2 *Relative to young adult level Estimated glomerular filtration rate is determined by the 2021 CKD-EPI equation recommended by the National Kidney [...] interpretive data was last reviewed 2021. Blood 05/20/2025 5:36 AM PAPER BAGS SEWING MACHINE OPERATOR 05/20/2025 5:49 AM PAPER BAGS SEWING MACHINE OPERATOR us Alexy Reed MD LAB BLOOD ORDERABLES Final Result [facility] [address] [facility] Department [place] [address] * Differential, auto (05/20/2025 5:36 AM PAPER BAGS SEWING MACHINE OPERATOR) Neutrophil abs 2.39 1.50 - 6.50 K/cumm Imm gran abs 0.01 0.00 - 0.10 K/cumm [facility] Lymphocyte abs 0.88 0.80 - 3.30 K/cumm [facility] Monocyte abs 0.46 0.20 - 0.80 K/cumm [facility] Eosinophil abs 0.25 0.00 - 0.50 K/cumm [facility] Basophil abs 0.02 0.00 - 0.10 K/cumm [facility] Neutrophil pct 59.7 % [facility] Comment: Interpretive Data Percent cell count reference ranges are not reported, since discordance with absolute values may lead to misinterpretation of CBC data. Current Interpretive Data was last revised on 2017. Imm gran pct 0.2 % [facility] Comment: Interpretive Data Percent cell count reference ranges are not reported, since discordance with absolute values may lead to misinterpretation of CBC data. Current Interpretive Data was last revised on 2017. Lymphocyte pct 21.9 % [facility] Comment: Interpretive Data Percent cell count reference ranges are not reported, since discordance with absolute values may lead to misinterpretation of CBC data. Current Interpretive Data was last revised on 2017. Monocyte pct 11.5 % [facility] Comment: Interpretive Data Percent cell count reference ranges are not reported, since discordance with absolute values may lead to misinterpretation of CBC data. Current Interpretive Data was last revised on 2017. Eosinophil pct 6.2 % [facility] Comment: Interpretive Data Percent cell count reference ranges are not reported, since discordance with absolute values may lead to misinterpretation of CBC data. Current Interpretive Data was last revised on 2017. Basophil pct 0.5 % [facility] Comment: Interpretive Data Percent cell count reference ranges are not reported, since discordance with absolute values may lead to misinterpretation of CBC data. Current Interpretive Data was last revised on 2017. Blood 05/20/2025 5:36 AM PAPER BAGS SEWING MACHINE OPERATOR 05/20/2025 5:49 AM PAPER BAGS SEWING MACHINE OPERATOR Alexy Reed MD LAB BLOOD ORDERABLES Final Result [facility] [address] [facility] Department [place] [address] * (ABNORMAL) CBC with auto differential (05/20/2025 5:36 AM PAPER BAGS SEWING MACHINE OPERATOR) WBC 4.01 3.80 - 9.90 K/cumm Hgb 11.0(L) 11.9 - 15.5 g/dL [facility] Hct 34.4(L) 35.6 - 45.5 % [facility] Plt 138(L) 150 - 400 K/cumm [facility] MPV 10.5 9.1 - 12.3 fL [facility] RBC 3.43(L) 3.90 - 5.20 M/cumm [facility] MCV 100.3(H) 81.3 - 96.4 fL [facility] MCH 32.1 27.1 - 33.3 pg [facility] MCHC 32.0(L) 32.3 - 35.7 g/dL [facility] RDW CV 13.9 11.1 - 14.9 % [facility] RDW SD 51.0(H) 35.7 - 48.1 fL [facility] NRBC abs 0.00 0.00 - 0.01 K/cumm [facility] Blood 05/20/2025 5:36 AM PAPER BAGS SEWING MACHINE OPERATOR 05/20/2025 5:49 AM PAPER BAGS SEWING MACHINE OPERATOR Alexy Reed MD LAB BLOOD ORDERABLES Final Result [facility] [address] Department [place] [address] * (ABNORMAL) Basic metabolic panel (05/20/2025 5:36 AM PAPER BAGS SEWING MACHINE OPERATOR) [facility] Sodium 143 135 - 145 mmol/L Potassium, pl 3.6 3.3 - 4.9 mmol/L [facility] Chloride 112(H) 97 - 110 mmol/L [facility] CO2 22 22 - 32 mmol/L [facility] Anion gap 9 2 - 15 mmol/L [facility] BUN 22 6 - 25 mg/dL [facility] Creatinine 1.19(H) 0.60 - 1.10 mg/dL [facility] Glucose 92 70 - 199 mg/dL [facility] Comment: Interpretive Data Fasting glucose [...] interpretive data was last revised 2022. Calcium 8.9 8.5 - 10.3 mg/dL [facility] Blood 05/20/2025 5:36 AM PAPER BAGS SEWING MACHINE OPERATOR 05/20/2025 5:49 AM PAPER BAGS SEWING MACHINE OPERATOR Alexy Reed MD LAB BLOOD ORDERABLES Final Result [facility] [address] [place] [address] * (ABNORMAL) eGFR (05/19/2025 5:44 AM PAPER BAGS SEWING MACHINE OPERATOR) [facility] eGFR 49(L) >=60 mL/min/1. 73 m2 Comment: Interpretive Data [...] interpretive data was last reviewed 2021. Blood 05/19/2025 5:44 AM PAPER BAGS SEWING MACHINE OPERATOR 05/19/2025 6:33 AM PAPER BAGS SEWING MACHINE OPERATOR us Alexy Reed MD LAB BLOOD ORDERABLES Final Result [place] [id number] [facility] Department [place] [address] * Differential, auto (05/19/2025 5:44 AM PAPER BAGS SEWING MACHINE OPERATOR) Pathologist [facility] Neutrophil abs 2.38 1.50 - 6.50 K/cumm Imm gran abs 0.01 0.00 - 0.10 K/cumm [facility] Lymphocyte abs 0.84 0.80 - 3.30 K/cumm [facility] Monocyte abs 0.39 0.20 - 0.80 K/cumm [facility] Eosinophil abs 0.23 0.00 - 0.50 K/cumm [facility] Basophil abs 0.02 0.00 - 0.10 K/cumm [facility] Neutrophil pct 61.5 % [facility] Comment: Interpretive Data Percent cell count reference ranges are not reported, since discordance with absolute values may lead to misinterpretation of CBC data. Current Interpretive Data was last revised on 2017. Imm gran pct 0.3 % [facility] Comment: Interpretive Data Percent cell count reference ranges are not reported, since discordance with absolute values may lead to misinterpretation of CBC data. Current Interpretive Data was last revised on 2017. Lymphocyte pct 21.7 % [facility] Comment: Interpretive Data Percent cell count reference ranges are not reported, since discordance with absolute values may lead to misinterpretation of CBC data. Current Interpretive Data was last revised on 2017. Monocyte pct 10.1 % [facility] Comment: Interpretive Data Percent cell count reference ranges are not reported, since discordance with absolute values may lead to misinterpretation of CBC data. Current Interpretive Data was last revised on 2017. Eosinophil pct 5.9 % [facility] Comment: Interpretive Data Percent cell count reference ranges are not reported, since discordance with absolute values may lead to misinterpretation of CBC data. Current Interpretive Data was last revised on 2017. Basophil pct 0.5 % [facility] Comment: Interpretive Data Percent cell count reference ranges are not reported, since discordance with absolute values may lead to misinterpretation of CBC data. Current Interpretive Data was last revised on 2017. Blood 05/19/2025 5:44 AM PAPER BAGS SEWING MACHINE OPERATOR 05/19/2025 6:33 AM PAPER BAGS SEWING MACHINE OPERATOR Alexy Reed MD LAB BLOOD ORDERABLES Final Result [facility] [address] [facility] Department [place] [address] * (ABNORMAL) CBC with auto differential (05/19/2025 5:44 AM PAPER BAGS SEWING MACHINE OPERATOR) WBC 3.87 3.80 - 9.90 K/cumm Hgb 11.4(L) 11.9 - 15.5 g/dL [facility] Hct 35.7 35.6 - 45.5 % [facility] Plt 149(L) 150 - 400 K/cumm [facility] MPV 11.0 9.1 - 12.3 fL [facility] RBC 3.51(L) 3.90 - 5.20 M/cumm [facility] MCV 101.7(H) 81.3 - 96.4 fL [facility] MCH 32.5 27.1 - 33.3 pg [facility] MCHC 31.9(L) 32.3 - 35.7 g/dL [facility] RDW CV 13.8 11.1 - 14.9 % [facility] RDW SD 51.5(H) 35.7 - 48.1 fL [facility] NRBC abs 0.00 0.00 - 0.01 K/cumm [facility] Blood 05/19/2025 5:44 AM PAPER BAGS SEWING MACHINE OPERATOR 05/19/2025 6:33 AM PAPER BAGS SEWING MACHINE OPERATOR us Alexy Reed MD LAB BLOOD ORDERABLES Final Result [facility] [address] [facility] Department [place] [address] * (ABNORMAL) Basic metabolic panel (05/19/2025 5:44 AM PAPER BAGS SEWING MACHINE OPERATOR) Sodium 141 135 - 145 mmol/L Potassium, pl 4.0 3.3 - 4.9 mmol/L [facility] Chloride 110 97 - 110 mmol/L [facility] CO2 22 22 - 32 mmol/L [facility] Anion gap 9 2 - 15 mmol/L [facility] BUN 26(H) 6 - 25 mg/dL [facility] Creatinine 1.20(H) 0.60 - 1.10 mg/dL [facility] Glucose 89 70 - 199 mg/dL [facility] Comment: Interpretive Data Fasting glucose [...] Calcium 9.0 8.5 - 10.3 mg/dL [facility] Blood 05/19/2025 5:44 AM PAPER [employer]AGS SEWING MACHINE OPERATOR 05/19/2025 6:33 AM PAPER BAGS SEWING MACHINE OPERATOR Alexy Reed MD LAB BLOOD ORDERABLES Final Result Performing Organization Address [facility] de Phone Number VIANCA [address] [employer] [place] [address] * (ABNORMAL) eGFR (05/18/2025 12:31 PM PAPER BAGS SEWING MACHINE OPERATOR) [facility] eGFR 47(L) >=60 mL/min/1. 73 m2 Comment: Interpretive Data [...] interpretive data was last reviewed 2021. Blood 05/18/2025 12:3 1 PM PAPER BAGS SEWING MACHINE OPERATOR 05/18/2025 12:44 PM PAPER BAGS SEWING MACHINE OPERATOR Alexy Reed MD LAB BLOOD ORDERABLES Final Result Performing Organization Address City/[facility] Co de Phone Number VIANCA [address] [place] [address] * Differential, auto (05/18/2025 12:31 PM PAPER BAGS SEWING MACHINE OPERATOR) [facility] Neutrophil abs 2.88 1.50 - 6.50 K/cumm Imm gran abs 0.01 0.00 - 0.10 K/cumm [facility] Lymphocyte abs 1.00 0.80 - 3.30 K/cumm [facility] Monocyte abs 0.48 0.20 - 0.80 K/cumm [facility] Eosinophil abs 0.27 0.00 - 0.50 K/cumm [facility] Basophil abs 0.02 0.00 - 0.10 K/cumm [facility] Neutrophil pct 61.8 % [facility] Comment: Interpretive Data Percent cell count reference ranges are not reported, since discordance with absolute values may lead to misinterpretation of CBC data. Current Interpretive Data was last revised on 2017. Imm gran pct 0.2 % [facility] Comment: Interpretive Data Percent cell count reference ranges are not reported, since discordance with absolute values may lead to misinterpretation of CBC data. Current Interpretive Data was last revised on 2017. Lymphocyte pct 21.5 % [facility] Comment: Interpretive Data Percent cell count reference ranges are not reported, since discordance with absolute values may lead to misinterpretation of CBC data. Current Interpretive Data was last revised on 2017. Monocyte pct 10.3 % [facility] Comment: Interpretive Data Percent cell count reference ranges are not reported, since discordance with absolute values may lead to misinterpretation of CBC data. Current Interpretive Data was last revised on 2017. Eosinophil pct 5.8 % [facility] Comment: Interpretive Data Percent cell count reference ranges are not reported, since discordance with absolute values may lead to misinterpretation of CBC data. Current Interpretive Data was last revised on 2017. Basophil pct 0.4 % [facility] Comment: Interpretive Data Percent cell count reference ranges are not reported, since discordance with absolute values may lead to misinterpretation of CBC data. Current Interpretive Data was last revised on 2017. Blood 05/18/2025 12:3 1 PM PAPER BAGS SEWING MACHINE OPERATOR 05/18/2025 12:44 PM PAPER BAGS SEWING MACHINE OPERATOR us Alexy Reed MD LAB BLOOD ORDERABLES Final Result VIANCA BOYLE [address] [facility] Department [place] [address] * (ABNORMAL) CBC with auto differential (05/18/2025 12:31 PM PAPER BAGS SEWING MACHINE OPERATOR) WBC 4.66 3.80 - 9.90 K/cumm Hgb 11.5(L) 11.9 - 15.5 g/dL [facility] Hct 35.0(L) 35.6 - 45.5 % [facility] Plt 183 150 - 400 K/cumm [facility] MPV 10.1 9.1 - 12.3 fL [facility] RBC 3.53(L) 3.90 - 5.20 M/cumm [facility] MCV 99.2(H) 81.3 - 96.4 fL [facility] MCH 32.6 27.1 - 33.3 pg [facility] MCHC 32.9 32.3 - 35.7 g/dL [facility] RDW CV 14.1 11.1 - 14.9 % [facility] RDW SD 50.9(H) 35.7 - 48.1 fL [facility] NRBC abs 0.00 0.00 - 0.01 K/cumm [facility] Blood 05/18/2025 12:3 1 PM PAPER BAGS SEWING MACHINE OPERATOR 05/18/2025 12:44 PM PAPER BAGS SEWING MACHINE OPERATOR us Alexy Reed MD LAB BLOOD ORDERABLES Final Result [place] [id number] [facility] Department [place] [address] * (ABNORMAL) Basic metabolic panel (05/18/2025 12:31 PM PAPER BAGS SEWING MACHINE OPERATOR) Sodium 141 135 - 145 mmol/L Potassium, pl 4.2 3.3 - 4.9 mmol/L [facility] Chloride 112(H) 97 - 110 mmol/L [facility] CO2 19(L) 22 - 32 mmol/L [facility] Anion gap 10 2 - 15 mmol/L [facility] BUN 30(H) 6 - 25 mg/dL [facility] Creatinine 1.25(H) 0.60 - 1.10 mg/dL [facility] Glucose 96 70 - 199 mg/dL [facility] Comment: Interpretive Data Fasting glucose [...] interpretive data was last revised 2022. Calcium 9.2 8.5 - 10.3 mg/dL VIANCA BOYLE Blood 05/18/2025 12:3 1 PM PAPER BAGS SEWING MACHINE OPERATOR 05/18/2025 12:44 PM PAPER BAGS SEWING MACHINE OPERATOR us Alexy Reed MD LAB BLOOD ORDERABLES Final Result VIANCA [address] [facility] Department [place] [address] * Blood culture Blood Peripheral (05/17/2025 3:38 PM PAPER BAGS SEWING MACHINE OPERATOR) Report Final Report: No growth Comment:Testing performed by : [facility], [address] [facility]., [address] Blood (Peripheral) 05/17/2025 3:38 PM PAPER BAGS SEWING MACHINE OPERATOR 05/17/2025 7:07 PM PAPER BAGS SEWING MACHINE OPERATOR Narrative VIANCA - 05/22/2025 7:00 AM PAPER BAGS SEWING MACHINE OPERATOR From a different site than #1. Draw Blood cultures before administration of Antibiotics Collection->Peripheral 1. Blood cultures are incubated for 4 days on a continuously monitored blood culture system. The first report of a negative culture is issued within 24 hours of receipt of the specimen in the laboratory. 2. Positive culture results are reported as soon as they are detected. 3. The most important factor for detection of microbes in the setting of bloodstream infection is the volume of blood submitted for culture. Failure to collect an optimal blood volume can result in false negative blood cultures. 4. For pediatric patients, the recommended blood volume to collect follows a weight based strategy. See the electronic test catalog for collection instructions. 5. For positive blood cultures, a rapid molecular test may be performed for organism identification using the crystal ePlex blood culture identification panel for gram positive (BCID-GP) and gram negative (BCID-GN) organisms. This nucleic acid amplification test detects microbial DNA in positive blood culture broth. This assay has been cleared by the [place] Food and Drug Administration and its performance characteristics have been verified by the [facility]. For questions about this culture, contact the Microbiology Laboratory at [phone]. Interpretive data was last revised on 24. Flora OSMAN LAB MICROBIOLOGY - GENERAL ORDER KELVIN Final Result VIANCA [address] [facility] Department [place] [address] * Blood culture Blood Peripheral (05/17/2025 3:29 PM PAPER BAGS SEWING MACHINE OPERATOR) Report Final Report: No growth Comment:Testing performed by : [facility], [address] [facility]., [address] Blood (Peripheral) 05/17/2025 3:29 PM PAPER BAGS SEWING MACHINE OPERATOR 05/17/2025 7:07 PM PAPER BAGS SEWING MACHINE OPERATOR Narrative VIANCA - 05/22/2025 7:00 AM PAPER BAGS SEWING MACHINE OPERATOR Draw Blood cultures before administration of Antibiotics Collection->Peripheral 1. Blood cultures are incubated for 4 days on a continuously monitored blood culture system. The first report of a negative culture is issued within 24 hours of receipt of the specimen in the laboratory. 2. Positive culture results are reported as soon as they are detected. 3. The most important factor for detection of microbes in the setting of bloodstream infection is the volume of blood submitted for culture. Failure to collect an optimal blood volume can result in false negative blood cultures. 4. For pediatric patients, the recommended blood volume to collect follows a weight based strategy. See the electronic test catalog for collection instructions. 5. For positive blood cultures, a rapid molecular test may be performed for organism identification using the crystal ePlex blood culture identification panel for gram positive (BCID-GP) and gram negative (BCID-GN) organisms. This nucleic acid amplification test detects microbial DNA in positive blood culture broth. This assay has been cleared by the [place] Food and Drug Administration and its performance characteristics have been verified by the [facility]. For questions about this culture, contact the Microbiology Laboratory at [phone]. Interpretive data was last revised on 24. Flora OSMAN LAB MICROBIOLOGY - GENERAL ORDER KELVIN Final Result Performing Organization Address [facility] Co de Phone Number VIANCA [address] [employer] [place] [address] * Sepsis Lactate w/ Reflex (05/17/2025 2:22 PM PAPER BAGS SEWING MACHINE OPERATOR) Sepsis Lactate 0.7 0.7 - 2.0 mmol/L Blood 05/17/2025 2:22 PM PAPER BAGS SEWING MACHINE OPERATOR 05/17/2025 2:28 PM PAPER BAGS SEWING MACHINE OPERATOR Flora Maco OSMAN LAB BLOOD ORDERABLES Final Resul t Performing Organization Address [facility] de Phone Number VIANCA [address] [address] * CT Abdomen Pelvis W Contrast (05/17/2025 2:14 PM PAPER BAGS SEWING MACHINE OPERATOR) Anatomical Region Laterality Modality Body N/A Computed Tomogra phy 05/17/2025 2:27 PM PAPER BAGS SEWING MACHINE OPERATOR Impressions 05/17/2025 2:27 PM PAPER BAGS SEWING MACHINE OPERATOR No acute findings. Electronically signed by: Diogenes York M.D. Narrative 05/17/2025 2:27 PM PAPER BAGS SEWING MACHINE OPERATOR EXAMINATION: CT ABDOMEN PELVIS W CONTRAST ORDERING HEALTHCARE PROVIDER: CINDI JAIMES HISTORY: flank pain left flank pain. 5 days TECHNIQUE: CT abdomen and pelvis with intravenous and without oral contrast. Reconstructed coronal and sagittal MPR images reviewed. All images stored on PACS. Automated exposure control was used as a dose optimization technique for this examination. CONTRAST TYPE/DOSE: 93 mL Optiray 350 of intravenous COMPARISON: 12/07/2024 CT abdomen pelvis FINDINGS: LOWER CHEST: The lung bases are clear. The heart is normal in size without pericardial effusion. LIVER: Normal size. Caudate lobe demonstrates a 4.8 cm lesion on image 24 series 2 [place] measuring 4.7 cm with peripheral nodular enhancement likely related to hemangioma and generally unchanged. GALLBLADDER: Surgically absent with clips in place. SPLEEN: Normal. PANCREAS: Normal. ADRENALS: Normal. KIDNEYS/URINARY TRACT: No obstructing urolithiasis or hydronephrosis. Urinary bladder is partially decompressed containing a suprapubic balloon tip catheter in good position. GI: No bowel obstruction. Appendix not well-visualized. PERITONEUM: No free intraperitoneal air or ascites. REPRODUCTIVE: Normal. VASCULATURE: No abdominal aortic aneurysm. MUSCULOSKELETAL: No acute findings. OTHER: No other acute findings. Procedure Note Diogenes York MD - 05/17/2025 EXAMINATION: CT ABDOMEN PELVIS W CONTRAST ORDERING HEALTHCARE PROVIDER: CINDI JAIMES HISTORY: flank pain left flank pain. 5 days TECHNIQUE: CT abdomen and pelvis with intravenous and without oral contrast. Reconstructed coronal and sagittal MPR images reviewed. All images stored on PACS. Automated exposure control was used as a dose optimization technique for this examination. CONTRAST TYPE/DOSE: 93 mL Optiray 350 of intravenous COMPARISON: 12/07/2024 CT abdomen pelvis FINDINGS: LOWER CHEST: The lung bases are clear. The heart is normal in size without pericardial effusion. LIVER: Normal size. Caudate lobe demonstrates a 4.8 cm lesion on image 24 series 2 [place] measuring 4.7 cm with peripheral nodular enhancement likely related to hemangioma and generally unchanged. GALLBLADDER: Surgically absent with clips in place. SPLEEN: Normal. PANCREAS: Normal. ADRENALS: Normal. KIDNEYS/URINARY TRACT: No obstructing urolithiasis or hydronephrosis. Urinary bladder is partially decompressed containing a suprapubic balloon tip catheter in good position. GI: No bowel obstruction. Appendix not well-visualized. PERITONEUM: No free intraperitoneal air or ascites. REPRODUCTIVE: Normal. VASCULATURE: No abdominal aortic aneurysm. MUSCULOSKELETAL: No acute findings. OTHER: No other acute findings. IMPRESSION: No acute findings. Electronically signed by: Diogenes York M.D. Cindi Jaimes MD IM CT PROCEDURES Final Result * (ABNORMAL) eGFR (05/17/2025 12:23 PM PAPER BAGS SEWING MACHINE OPERATOR) eGFR 48(L) >=60 mL/min/1. 73 m2 Comment: Interpretive Data [...] interpretive data was last reviewed 2021. Blood 05/17/2025 12:2 3 PM PAPER BAGS SEWING MACHINE OPERATOR 05/17/2025 12:29 PM PAPER BAGS SEWING MACHINE OPERATOR Titus Garcia MD LAB BLOOD ORDERABLES Final Resul t [place] [id number] [facility] Department [place] [address] * Differential, auto (05/17/2025 12:23 PM PAPER BAGS SEWING MACHINE OPERATOR) Pathologist [facility] Neutrophil abs 4.49 1.50 - 6.50 K/cumm Imm gran abs 0.02 0.00 - 0.10 K/cumm [facility] Lymphocyte abs 0.96 0.80 - 3.30 K/cumm [facility] Monocyte abs 0.51 0.20 - 0.80 K/cumm [facility] Eosinophil abs 0.15 0.00 - 0.50 K/cumm [facility] Basophil abs 0.04 0.00 - 0.10 K/cumm [facility] Neutrophil pct 72.8 % [facility] Comment: Interpretive Data Percent cell count reference ranges are not reported, since discordance with absolute values may lead to misinterpretation of CBC data. Current Interpretive Data was last revised on 2017. Imm gran pct 0.3 % [facility] Comment: Interpretive Data Percent cell count reference ranges are not reported, since discordance with absolute values may lead to misinterpretation of CBC data. Current Interpretive Data was last revised on 2017. Lymphocyte pct 15.6 % [facility] Comment: Interpretive Data Percent cell count reference ranges are not reported, since discordance with absolute values may lead to misinterpretation of CBC data. Current Interpretive Data was last revised on 2017. Monocyte pct 8.3 % [facility] Comment: Interpretive Data Percent cell count reference ranges are not reported, since discordance with absolute values may lead to misinterpretation of CBC data. Current Interpretive Data was last revised on 2017. Eosinophil pct 2.4 % [facility] Comment: Interpretive Data Percent cell count reference ranges are not reported, since discordance with absolute values may lead to misinterpretation of CBC data. Current Interpretive Data was last revised on 2017. Basophil pct 0.6 % [facility] Comment: Interpretive Data Percent cell count reference ranges are not reported, since discordance with absolute values may lead to misinterpretation of CBC data. Current Interpretive Data was last revised on 2017. Blood 05/17/2025 12:2 3 PM PAPER BAGS SEWING MACHINE OPERATOR 05/17/2025 12:29 PM PAPER BAGS SEWING MACHINE OPERATOR us Titus Garcia MD LAB BLOOD ORDERABLES Final Resul t [facility] [address] [facility] Department [place] [address] * (ABNORMAL) CBC with auto differential (05/17/2025 12:23 PM PAPER BAGS SEWING MACHINE OPERATOR) WBC 6.17 3.80 - 9.90 K/cumm Hgb 12.5 11.9 - 15.5 g/dL [facility] Hct 38.3 35.6 - 45.5 % [facility] Plt 203 150 - 400 K/cumm [facility] MPV 10.3 9.1 - 12.3 fL [facility] RBC 3.86(L) 3.90 - 5.20 M/cumm [facility] MCV 99.2(H) 81.3 - 96.4 fL [facility] MCH 32.4 27.1 - 33.3 pg [facility] MCHC 32.6 32.3 - 35.7 g/dL [facility] RDW CV 13.8 11.1 - 14.9 % [facility] RDW SD 50.3(H) 35.7 - 48.1 fL [facility] NRBC abs 0.00 0.00 - 0.01 K/cumm [facility] Blood Venous blood specimen / Unknown 05/17/2025 12:23 PM PAPER BAGS SEWING MACHINE OPERATOR 05/17/2025 12:29 PM PAPER BAGS SEWING MACHINE OPERATOR us Titus Garcia MD LAB BLOOD ORDERABLES Final Resul t Performing Organization Address City/[facility] Co de Phone Number [address] [employer] [place] [address] * Lipase (05/17/2025 12:23 PM PAPER BAGS SEWING MACHINE OPERATOR) Pathologist [facility] Lipase 14 10 - 99 Units/L Blood Venous blood specimen / Unknown 05/17/2025 12:23 PM PAPER BAGS SEWING MACHINE OPERATOR 05/17/2025 12:29 PM PAPER BAGS SEWING MACHINE OPERATOR Titus Garcia MD LAB BLOOD ORDERABLES Final Resul t Performing Organization Address [facility] de Phone Number [address] [address] * (ABNORMAL) Comprehensive metabolic panel (05/17/2025 12:23 PM PAPER BAGS SEWING MACHINE OPERATOR) [facility] Sodium 140 135 - 145 mmol/L Potassium, pl 4.2 3.3 - 4.9 mmol/L [facility] Chloride 111(H) 97 - 110 mmol/L [facility] CO2 18(L) 22 - 32 mmol/L [facility] Anion gap 11 2 - 15 mmol/L [facility] BUN 28(H) 6 - 25 mg/dL [facility] Creatinine 1.22(H) 0.60 - 1.10 mg/dL [facility] Glucose 104 70 - 199 mg/dL [facility] Comment: Interpretive Data Fasting glucose [...] interpretive data was last revised 2022. Calcium 9.3 8.5 - 10.3 mg/dL [facility] Bilirubin, total 0.4 0.1 - 1.2 mg/dL [facility] Protein, pl 6.8 6.5 - 8.5 g/dL [facility] Albumin 3.9 3.5 - 5.0 g/dL [facility] Alk phos 131(H) 40 - 130 Units/L [facility] ALT 41 7 - 45 Units/L [facility] AST 41 10 - 45 Units/L [facility] Blood Venous blood specimen / Unknown 05/17/2025 12:23 PM PAPER BAGS SEWING MACHINE OPERATOR 05/17/2025 12:29 PM PAPER BAGS SEWING MACHINE OPERATOR us Titus Garcia MD LAB BLOOD ORDERABLES Final Resul t [facility] [address] [facility] Department [place] [address] * (ABNORMAL) Urinalysis reflex to microscopic and culture Urine (05/17/2025 12:02 PM PAPER BAGS SEWING MACHINE OPERATOR) Color, ur Other(A) Yellow Clarity, ur Cloudy(A) Clear [facility] Specific gravity, ur 1.014 1.003 - 1.030 [facility] pH, urine 5.0 [facility] Comment: Interpretive Data U rine pH is affected by diet, medications, systemic acid-base disturbances, and renal tubular function. pH may affect urinary stone formation. For example, urine pH below 6.0 may help reduce the tendency for calcium phosphate stones and pH greater than 6.0 may reduce the tendency for uric acid stone formation. Source: [facility] Current Interpretive Data was last revised on 2017 Protein, ur ql 1+(A) Negative [facility] Glucose, ur ql Negative Negative [facility] Ketones, ur Negative Negative [facility] Bilirubin, ur Negative Negative [facility] Blood, ur 3+(A) Negative [facility] Urobilinogen, ur <2.0 <2.0 mg/dL [facility] Nitrite, ur Positive(A) Negative [facility] Leukocyte esterase, ur 4+(A) Negative [facility] UA reflex comment Reflex to microscopic UA will be performed. [facility] Urine 05/17/2025 12:0 2 PM PAPER BAGS SEWING MACHINE OPERATOR 05/17/2025 12:06 PM PAPER BAGS SEWING MACHINE OPERATOR Titus Garcia MD LAB MICROBIOLOGY - GENERAL ORDER KELVIN Final Result Performing Organization Address [facility] de Phone Number [address] [address] * (ABNORMAL) Urinalysis, microscopic only (05/17/2025 12:02 PM PAPER BAGS SEWING MACHINE OPERATOR) WBC, ur >50(A) 0 - 5 /HPF RBC, ur >50(A) 0 - 2 /HPF [facility] Epithelial cells, squamous, ur 11-20(A) 0 - 5 /HPF [facility] Comment:Suggestive of contam ination. Consider recollection by clean catch. Bacteria, ur 1+(A) [facility] Mucous, ur Present(A) [facility] Culture Reflex Comment Reflex to urine culture will be performed. [facility] Urine 05/17/2025 12:0 2 PM PAPER BAGS SEWING MACHINE OPERATOR 05/17/2025 12:06 PM PAPER BAGS SEWING MACHINE OPERATOR Titus Garcia MD LAB URINE ORDERABLES Final Resul t Performing Organization Address [facility] de Phone Number [address] [address] * (ABNORMAL) Urine culture Urine (05/17/2025 12:02 PM PAPER BAGS SEWING MACHINE OPERATOR) Report Final Report: Greater than or equal to 100,000 colonies/mL of Klebsiella pneumoniae Plus growth of clinically insignificant bacterial ankita. (.) Comment:Testing performed by : [facility], [address] [facility], [place]., [address] Organism KLEBSIELLA PNEUMONIAE [facility] Organism PLUS GROWTH OF CLINICALLY INSIGNIFICANT ANKITA. [facility] Urine 05/17/2025 12:0 2 PM PAPER BAGS SEWING MACHINE OPERATOR 05/17/2025 5:35 PM PAPER BAGS SEWING MACHINE OPERATOR Narrative VIANCA - 05/19/2025 9:51 AM PAPER BAGS SEWING MACHINE OPERATOR Urine culture reflexed based upon urinalysis results. Testing performed by [facility] ([phone]) Organism Antibiotic Method Susceptibility Klebsiella pneumoniae Ampicillin INTERPRETATION Resistant Klebsiella pneumoniae Cefazolin INTERPRETATION Susceptible Klebsiella pneumoniae Nitrofurantoin INTERPRETATION Susceptible Klebsiella pneumoniae Gentamicin INTERPRETATION Susceptible Klebsiella pneumoniae Trimethoprim with Sulfamethoxazole INTERPRETATION Susceptible Klebsiella pneumoniae Meropenem INTERPRETATION Susceptible Klebsiella pneumoniae Cefepime INTERPRETATION Susceptible Klebsiella pneumoniae Ciprofloxacin INTERPRETATION Susceptible Klebsiella pneumoniae Ceftazidime INTERPRETATION Susceptible Klebsiella pneumoniae Ceftriaxone INTERPRETATION Susceptible Klebsiella pneumoniae Piperacillin/Tazobactam INTERPRE TATION Susceptible Klebsiella pneumoniae Cephalexin INTERPRETATION Susceptible Klebsiella pneumoniae Cefuroxime-axetil INTERPRETATION Susceptible Klebsiella pneumoniae Cefdinir INTERPRETATION Susceptible us Cindi Jaimes MD LAB MICROBIOLOGY - GENE RAL ORDERABLES Final Result VIANCA [address] [facility] Department [place] [address] * XR Abdomen 1 View AP (05/17/2025 8:39 AM PAPER BAGS SEWING MACHINE OPERATOR) Anatomical Region Laterality Modality Body, Abdomen N/A Computed Radiogr aphy 05/17/2025 11:5 6 AM PAPER BAGS SEWING MACHINE OPERATOR Impressions 05/17/2025 11:56 AM PAPER BAGS SEWING MACHINE OPERATOR No radiographic evidence of acute abdominopelvic process with chronic findings as above. Electronically signed by: Rui Cifuentes M.D. Narrative 05/17/2025 11:56 AM PAPER BAGS SEWING MACHINE OPERATOR EXAMINATION: XR ABDOMEN AP 1 VIEW HISTORY: Chronic abdominal pain of unspecified sites for 3 months. No provided history of trauma or inciting at/or aggravating events. History of kidney stones. History cholecystectomy. TECHNIQUE: Frontal radiographic views acquired of the abdomen and pelvis. Images saved to PACS. COMPARISON: CT abdomen and pelvis with contrast 12/07/2024 FINDINGS: Visualized lung bases clear. Nonobstructive bowel gas pattern. Cholecystectomy clips right or quadrant of the abdomen. Punctate calcification projecting over the lower pole of the left kidney potentially paper sales representative nonobstructing renal calculus. No acute osseous abnormality. Procedure Note Rui Cifuentes MD - 05/17/2025 EXAMINATION: XR ABDOMEN AP 1 VIEW HISTORY: Chronic abdominal pain of unspecified sites for 3 months. No provided history of trauma or inciting at/or aggravating events. History of kidney stones. History cholecystectomy. TECHNIQUE: Frontal radiographic views acquired of the abdomen and pelvis. Images saved to PACS. COMPARISON: CT abdomen and pelvis with contrast 12/07/2024 FINDINGS: Visualized lung bases clear. Nonobstructive bowel gas pattern. Cholecystectomy clips right or quadrant of the abdomen. Punctate calcification projecting over the lower pole of the left kidney potentially paper sales representative nonobstructing renal calculus. No acute osseous abnormality. IMPRESSION: No radiographic evidence of acute abdominopelvic process with chronic findings as above. Electronically signed by: Rui Cifuentes M.D. us Alee OSMAN IMG XR PROCEDURES Final Re sult * REFLEXIVE URINE CULTURE (05/11/2025 12:11 PM PAPER BAGS SEWING MACHINE OPERATOR) Urine culture [facility] Comment:CULTURE INDICATED - RESULTS TO FOLLOW 05/11/2025 12:1 1 PM PAPER BAGS SEWING MACHINE OPERATOR 05/11/2025 12:12 PM PAPER BAGS SEWING MACHINE OPERATOR us Alee OSMAN LAB MICROBIOLOGY - GENERAL ORDERABLES Final Result [facility] [address] [place] [address] * (ABNORMAL) Urinalysis reflex to microscopic and culture Urine (05/11/2025 12:11 PM PAPER BAGS SEWING MACHINE OPERATOR) Color, ur YELLOW [facility]LLOW [facility] Appearance, ur CLOUDY(A) CLEAR [facility] Specific gravity 1.012 1.001 - 1.035 [facility] pH, ur < OR = 5.0(A) 5.0 - 8.0 [facility] Glucose, ur NEGATIVE NEGATIVE [facility] Bilirubin, ur NEGATIVE NEGATIVE [facility] Ketones, ur NEGATIVE NEGATIVE [facility] Blood, ur NEGATIVE NEGATIVE [facility] Protein, ur, quant NEGATIVE NEGATIVE [facility] Nitrites, ur NEGATIVE NEGATIVE [facility] Leukocyte esterase, ur TRACE(A) NEGATIVE [facility] WBC, ur 0-5 < OR = 5 /HPF [facility] RBC, ur NONE SEEN < OR = 2 /HPF [facility] Epithelial cells, squamous, ur 0-5 < OR = 5 /HPF [facility] Bacteria, ur, quant FEW(A) NONE SEEN /HPF [facility] Calcium oxalate crystals, ur MANY(A) NONE OR FEW /HPF [facility] Hyaline cast NONE SEEN NONE SEEN /LPF [facility] Note [facility] Comment: This urine was analyzed for the presence of WBC, RBC, bacteria, casts, and other formed elements. Only those elements seen were reported. Urine 05/11/2025 12:1 1 PM PAPER BAGS SEWING MACHINE OPERATOR 05/11/2025 12:12 PM PAPER BAGS SEWING MACHINE OPERATOR Alee OSMAN LAB MICROBIOLOGY - GENERAL ORDERABLES Final Result Performing Organization Address [facility] Co de Phone Number [facility] [address] [place] [address] * Urine culture (05/11/2025 12:11 PM PAPER BAGS SEWING MACHINE OPERATOR) Urine culture [facility] Comment: CULTURE, URINE, ROUTINE Micro Number: [id number] Test Status: Final Specimen Source: Urine Specimen Quality: Adequate Result: No Growth 05/11/2025 12:1 1 PM PAPER BAGS SEWING MACHINE OPERATOR 05/11/2025 12:12 PM PAPER BAGS SEWING MACHINE OPERATOR Alee OSMAN LAB MICROBIOLOGY - GENERAL ORDERABLES Final Result Performing Organization Address City/[facility]/ZIP Co de Phone Number [facility] [address] [place] [address] * Urine culture Urine, clean voided (05/11/2025 12:11 PM PAPER BAGS SEWING MACHINE OPERATOR) Urine culture [facility] Comment: CULTURE, URINE, ROUTINE Micro Number: [id number] Test Status: Final Specimen Source: Urine, clean catch Specimen Quality: Adequate Result: Non-viable for identification and susceptibility testing. Urine, clean voided 05/11/2025 12:11 PM PAPER BAGS SEWING MACHINE OPERATOR 05/11/2025 12:12 PM PAPER BAGS SEWING MACHINE OPERATOR Alee OSMAN LAB MICROBIOLOGY - GENERAL ORDERABLES Final Result [facility] [address] [place] [address] * XR Knee Right 3 Views (05/09/2025 10:51 AM PAPER BAGS SEWING MACHINE OPERATOR) Anatomical Region Laterality Modality Lower Extremities, Knee Right Computed Radiography 05/09/2025 1:07 PM PAPER BAGS SEWING MACHINE OPERATOR Impressions 05/09/2025 1:07 PM PAPER BAGS SEWING MACHINE OPERATOR 1. Right total knee arthroplasty in near-anatomic alignment. Electronically signed by: Micah Comer M.D. Narrative 05/09/2025 1:07 PM PAPER BAGS SEWING MACHINE OPERATOR EXAMINATION: XR KNEE RIGHT 3 VIEWS HISTORY: s/p hx right TKA. Right knee osteoarthritis. FINDINGS: 3 views submitted with comparison 09/13/2024. Right total knee arthroplasty is in near-anatomic alignment. No acute fracture. Small knee effusion. Mild soft tissue swelling. Procedure Note Micah Comer MD - 05/09/2025 EXAMINATION: XR KNEE RIGHT 3 VIEWS HISTORY: s/p hx right TKA. Right knee osteoarthritis. FINDINGS: 3 views submitted with comparison 09/13/2024. Right total knee arthroplasty is in near-anatomic alignment. No acute fracture. Small knee effusion. Mild soft tissue swelling. IMPRESSION: 1. Right total knee arthroplasty in near-anatomic alignment. Electronically signed by: Micah Comer M.D. Michael Motta MD IMG XR PROCEDURES Final Re sult * Iron profile w/ IBC (04/26/2025 12:53 PM CDT) Iron 108 45 - 160 mcg/dL [facility] TIBC 294 250 - 450 mcg/dL (calc) [facility] Iron saturation 37 16 - 45 % (calc) [facility] 04/26/2025 12:5 3 PM CDT 04/26/2025 12:54 PM CDT Narrative [facility] - 04/27/2025 7:00 AM CDT FASTING:NO FASTING: NO us Alee OSMAN LAB BLOOD ORDERABLES Final Result [facility] [address] [address] * (ABNORMAL) CBC with auto differential (04/26/2025 12:53 PM CDT) Pathologist [facility] WBC 3.6(L) 3.8 - 10.8 Thousand/u L [facility] RBC, POC 3.77(L) 3.80 - 5.10 Million/uL [facility] Hgb 12.7 11.7 - 15.5 g/dL [facility] Hct 38.3 35.0 - 45.0 % [facility] MCV 101.6(H) 80.0 - 100.0 fL [facility] MCH 33.7(H) 27.0 - 33.0 pg [facility] MCHC 33.2 32.0 - 36.0 g/dL [facility] Comment: For adults, a slight decrease in the calculated MCHC value (in the range of 30 to 32 g/dL) is most likely not clinically significant; however, it should be interpreted with caution in correlation with other red cell parameters and the patient's clinical condition. Rdw 12.8 11.0 - 15.0 % [facility] Platelets 171 140 - 400 Thousand/u L [facility] MPV 10.7 7.5 - 12.5 fL [facility] Neutrophils, abs 2,336 1,500 - 7,800 cells/uL [facility] Lymphocytes, abs 806(L) 850 - 3,900 cells/uL [facility] Monocyte abs 356 200 - 950 cells/uL [facility] Eosinophils, abs 79 15 - 500 cells/uL [facility] Basophils, abs 22 0 - 200 cells/uL [facility] Neutrophils 64.9 % [facility] Lymphocyte pct 22.4 % [facility] Monocytes 9.9 % [facility] Eosinophils 2.2 % [facility] Basophils 0.6 % [facility] Blood 04/26/2025 12:5 3 PM CDT 04/26/2025 12:54 PM CDT Narrative [facility] - 04/27/2025 7:00 AM CDT FASTING:NO FASTING: NO Alee OSMAN LAB BLOOD ORDERABLES Final Result Performing Organization Address [facility] Co de Phone Number [facility] [address] [place] [address] * Vitamin D 25 hydroxy (04/26/2025 12:53 PM CDT) Vitamin D 25-OH 48 30 - 100 ng/mL [facility] Comment: Vitamin D Status 25-OH Vitamin D: Deficiency: <20 ng/mL Insufficiency: 20 - 29 ng/mL Optimal: > or = 30 ng/mL For 25-OH Vitamin D testing on patients on D2-supplementation and patients for whom quantitation of D2 and D3 fractions is required, the [facility](TM) 25-OH VIT D, (D2,D3), LC/MS/MS is recommended: order code 36656 (patients >2yrs). See Note 1 Note 1 For additional information, please refer to http://education.[employer].Sols/faq/KIN667 (This link is being provided for informational/ educational purposes only.) Blood 04/26/2025 12:5 3 PM CDT 04/26/2025 12:54 PM CDT Narrative [facility] - 04/27/2025 7:00 AM CDT FASTING:NO FASTING: NO Alee OSMAN LAB BLOOD ORDERABLES Final Result [facility] [address] [place] [address] * TSH (04/26/2025 12:53 PM CDT) Pathologist [facility] TSH 1.01 0.40 - 4.50 mIU/L [facility] Blood 04/26/2025 12:5 3 PM CDT 04/26/2025 12:54 PM CDT Narrative [facility] - 04/27/2025 7:00 AM CDT FASTING:NO FASTING: NO Alee OSMAN LAB BLOOD ORDERABLES Final Result Performing Organization Address [facility] Co de Phone Number [facility] [address] [place] [address] * Ferritin (04/26/2025 12:53 PM CDT) Pathologist [facility] Ferritin 128 16 - 288 ng/mL [facility] 04/26/2025 12:5 3 PM CDT 04/26/2025 12:54 PM CDT Narrative [facility] - 04/27/2025 7:00 AM CDT FASTING:NO FASTING: NO Alee OSMAN LAB BLOOD ORDERABLES Final Result Performing Organization Address [facility] Co de Phone Number [facility] [address] [place] [address] * (ABNORMAL) Vitamin B12 (04/26/2025 12:53 PM CDT) Pathologist [facility] Vitamin B12 1,606(H) 200 - 1,100 pg/mL [facility] Blood 04/26/2025 12:5 3 PM CDT 04/26/2025 12:54 PM CDT Narrative [facility] - 04/27/2025 7:00 AM CDT FASTING:NO FASTING: NO Alee OSMAN LAB BLOOD ORDERABLES Final Result [facility] [address] [address] * Comprehensive metabolic panel (04/26/2025 12:53 PM CDT) Glucose 86 65 - 139 mg/dL [facility] Comment: Non-fasting reference interval BUN 21 7 - 25 mg/dL [facility] Creatinine 0.79 0.50 - 1.05 mg/dL [facility] eGFR 81 > OR = 60 mL/min/1.7 3m2 [facility] BUN/creat ratio SEE NOTE: 6 - 22 (calc) [facility] Comment: Not Reported: BUN and Creatinine are within reference range. Sodium 140 135 - 146 mmol/L [facility] Potassium, pl 4.2 3.5 - 5.3 mmol/L [facility] Chloride 109 98 - 110 mmol/L [facility] CO2 23 20 - 32 mmol/L [facility] Calcium 9.3 8.6 - 10.4 mg/dL [facility] Protein, sr 6.4 6.1 - 8.1 g/dL [facility] Albumin 4.0 3.6 - 5.1 g/dL [facility] GLOBULIN 2.4 1.9 - 3.7 g/dL (calc) [facility] Alb/glob ratio 1.7 1.0 - 2.5 (calc) [facility] Bilirubin, total 0.6 0.2 - 1.2 mg/dL [facility] Alk phos 105 37 - 153 U/L [facility] AST 23 10 - 35 U/L [facility] ALT (SGPT) 23 6 - 29 U/L [facility] Blood 04/26/2025 12:5 3 PM CDT 04/26/2025 12:54 PM CDT Narrative [facility] - 04/27/2025 7:00 AM CDT FASTING:NO FASTING: NO Alee OSMAN LAB BLOOD ORDERABLES Final Result [facility] [address] [address] * (ABNORMAL) POCT urinalysis dipstick (04/25/2025 8:45 AM CDT) Glucose, ur, POC Negative Negative Bilirubin, ur, POC Negative Negative Ketones, ur, POC Negative Negative Specific [place], POC 1.025 1.003 - 1.030 Blood, ur, POC Small(A) Negative pH, ur, POC 7.0 5.0 - 8.0 Protein, ur, POC 30.(A) Negative Urobilinogen, urine, POC 0.2 0.2 - 1.0 mg/dL Nitrite, ur, POC Positive(A) Negative Leukocytes, ur, POC Small(A) Negative Lot Number [id number] Urine 04/25/2025 8:45 AM CDT Alee OSMAN POINT OF CARE TEST ORDERAB LES Edited Result - Final * (ABNORMAL) Urine culture Urine, clean voided (04/25/2025 8:39 AM CDT) Urine culture (A) [facility] Comment: CULTURE, URINE, ROUTINE Micro Number: [id number] Test Status: Final Specimen Source: Urine, clean catch Specimen Quality: Adequate Result: Greater than 100,000 CFU/mL of Klebsiella pneumoniae K.pneumoniae INT SURESH AMOX/CLAVULANATE S <=2 AMP/SULBACTAM S 4 CEFAZOLIN NR 2 2 CEFEPIME S <=0.12 CEFTAZIDIME S <=0.5 CEFTRIAXONE S <=0.25 CIPROFLOXACIN S <=0.06 GENTAMICIN S <=1 IMIPENEM S <=0.25 LEVOFLOXACIN S <=0.12 MEROPENEM S <=0.25 NITROFURANTOIN I 64 PIP/TAZOBACTAM S <=4 TRIMETHOPRIM/SULFA S <=20 S = Susceptible I = Intermediate R = Resistant NS = Not susceptible SDD = Susceptible Dose Dependent * = Not Tested NR = Not Reported NN = See Therapy Comments THERAPY COMMENTS Note 1: For infections other than uncomplicated UTI caused by E. coli, K. pneumoniae or P. mirabilis: Cefazolin is resistant if SURESH > or = 8 mcg/mL. (Distinguishing susceptible versus intermediate for isolates with SURESH < or = 4 mcg/mL requires additional testing.) Note 2: For uncomplicated UTI caused by E. coli, K. pneumoniae or P. mirabilis: Cefazolin is susceptible if SURESH <32 mcg/mL and predicts susceptible to the oral agents cefaclor, cefdinir, cefpodoxime, cefprozil, cefuroxime, cephalexin and loracarbef. Urine, clean voided 04/25/2025 8:39 AM CDT 04/25/2025 11:29 PM CDT Alee OSMAN LAB MICROBIOLOGY - GENERAL ORDERABLES Final Result [facility] [address] [place] [address] * (ABNORMAL) CBC with auto differential (03/27/2025 2:22 PM CDT) WBC 4.0 3.8 - 10.8 Thousand/u L [facility] RBC, POC 3.59(L) 3.80 - 5.10 Million/uL [facility] Hgb 12.1 11.7 - 15.5 g/dL [facility] Hct 36.9 35.0 - 45.0 % [facility] MCV 102.8(H) 80.0 - 100.0 fL [facility] MCH 33.7(H) 27.0 - 33.0 pg [facility] MCHC 32.8 32.0 - 36.0 g/dL [facility] Comment: For adults, a slight decrease in the calculated MCHC value (in the range of 30 to 32 g/dL) is most likely not clinically significant; however, it should be interpreted with caution in correlation with other red cell parameters and the patient's clinical condition. Rdw 12.6 11.0 - 15.0 % [facility] Platelets 180 140 - 400 Thousand/u L [facility] MPV 10.2 7.5 - 12.5 fL [facility] Neutrophils, abs 2,488 1,500 - 7,800 cells/uL [facility] Lymphocytes, abs 1,004 850 - 3,900 cells/uL [facility] Monocyte abs 384 200 - 950 cells/uL [facility] Eosinophils, abs 92 15 - 500 cells/uL [facility] Basophils, abs 32 0 - 200 cells/uL [facility] Neutrophils 62.2 % [facility] Lymphocyte pct 25.1 % [facility] Monocytes 9.6 % [facility] Eosinophils 2.3 % [facility] Basophils 0.8 % [facility] Blood 03/27/2025 2:22 PM CDT 03/27/2025 2:23 PM CDT Sangita OSMAN LAB BLOOD ORDERABLES Vy l Result [facility] [address] [place] [address] * Comprehensive metabolic panel (03/27/2025 2:22 PM CDT) [facility] Glucose 81 65 - 99 mg/dL [facility] Comment: Fasting reference interval BUN 25 7 - 25 mg/dL [facility] Creatinine 0.97 0.50 - 1.05 mg/dL [facility] eGFR 63 > OR = 60 mL/min/1.7 3m2 [facility] BUN/creat ratio SEE NOTE: (calc) [facility] Comment: Not Reported: BUN and Creatinine are within reference range. Sodium 138 135 - 146 mmol/L [facility] Potassium, pl 4.6 3.5 - 5.3 mmol/L [facility] Chloride 108 98 - 110 mmol/L [facility] CO2 25 20 - 32 mmol/L [facility] Calcium 8.8 8.6 - 10.4 mg/dL [facility] Protein, sr 6.2 6.1 - 8.1 g/dL [facility] Albumin 3.9 3.6 - 5.1 g/dL [facility] GLOBULIN 2.3 1.9 - 3.7 g/dL (calc) [facility] Alb/glob ratio 1.7 1.0 - 2.5 (calc) [facility] Bilirubin, total 0.5 0.2 - 1.2 mg/dL [facility] Alk phos 105 37 - 153 U/L [facility] AST 32 10 - 35 U/L [facility] ALT (SGPT) 24 6 - 29 U/L [facility] Blood 03/27/2025 2:22 PM CDT 03/27/2025 2:23 PM CDT Sangita OSMAN LAB BLOOD ORDERABLES Vy l Result [facility] [address] [place] [address] * Colonoscopy (02/22/2025 8:21 AM CDT) Anatomical Region Laterality Modality Other Narrative Procedure Note Timi Cox MD - 02/22/2025 8:21 AM CDT [facility] Patient Name: Nohemy Roy Procedure Date: 02/22/2025 8:21 AM Date of : 1955 Admit Type: Outpatient Age: 69 Gender: Female Attending MD: Timi Cox M.D., Room: [facility] ENDOSCOPY ROOM 02 Note Status: Finalized Procedure: Colonoscopy Indications: Screening for colorectal malignant neoplasm Referring MD: Providers: Timi Cox M.D. Medicines: Propofol per Anesthesia Complications: No immediate complications. Estimated Blood Loss: Estimated blood loss: none. Procedure: Pre-Anesthesia Assessment: - After reviewing the risks and benefits, thepatient was deemed in satisfactory condition to undergo the procedure. - Immediately prior to administration ofmedications, the patient was re-assessed for adequacy to receive sedatives. The benefits, risks and alternatives of theprocedure and sedation were discussed and informed consentwas obtained. All questions were answered. Please referto the signed informed consent document in the medical record. The scope was passed under direct vision.The [id number] Colonoscope was introducedthrough the anus and advanced to the the cecum, identifiedby the ileocecal valve. The colonoscopy was performed without difficulty. The patient tolerated the procedure well. The quality of the bowelpreparation was fair. The bowel preparation used was SUPREP. Findings: The perianal and digital rectal examinations were normal. Semi-liquid stool was found in the ascending colon, interfering with visualization. The colon (entire examined portion) appeared normal. Impression: - Preparation of the colon was fair. - Stool in the ascending colon. - The entire examined colon is normal. - No specimens collected. Recommendation: - Repeat colonoscopy in 3 years because the bowel preparation was suboptimal. Attending Participation: I was present and participated during the entire procedure, including non-gilliam portions. Electronically signed by Ramirez Cox Timi Cox M.D. 02/22/2025 10:42:58 AM Number of Addenda: 0 Note Initiated On: 02/22/2025 8:21 AM Recognized by the [employer] for promoting quality in endoscopy us Timi Cox MD ENDOSCOPY PROCEDURES Final Res ult * Dexa TBS Axial Skeleton Bone Density 1 or more sites (11/08/2024 10:31 AM CDT) Anatomical Region Laterality Modality Wrist, Body N/A Radiographic Melanie ging Narrative 11/08/2024 11:38 AM CDT Patient Name: Nohemy Roy Date of : 1955 Date of scan: 11/08/2024 Bone mineral density was performed on a [employer] Discovery Densitometer. Based on machine cross-calibration and [...] mineral density scan were prepared by Yana Taylor)(Mikayla)(SHAMEKA) CBDT who is accredited by the International Society of Clinical Densitometry. The overall patient assessment and scan interpretation were performed by Abisai Martinez M.D. who is certified by the International Society of Clinical Densitometry. 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 There is no laboratory evidence of HCV infection. In most cases, no further action is required. However, if recent HCV exposure is suspected, a test for HCV RNA (test code 93473) is suggested. 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 Sangita OSMAN LAB MICROBIOLOGY - GENERA L ORDERABLES Final Result [facility] [address] [place] [address] from Last 3 Months or Most Recently Relevant to Health Maintenance Insurance [facility] MEDICARE ADVANTAGE [facility] Address: [facility] [address] [place] [address] [facility] MEDICARE ADVANTAGE [facility] Address: [address] [address] [place] [address] [facility] MEDICARE ADVANTAGE Advance Directives For more information, please contact: [phone] Documents on File Type Date Recorded 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 ADVANCE DIRECTIVE 05/17/2024 2:13 PM Yonis r of Linotype Mechanic-Medical * Full Code (Latest Code Status on File) Date Activated Date Inactivated Comments 05/17/2025 4:49 PM 05/20/2025 6:00 PM * Full Code Date Activated Date Inactivated Comments 02/22/2025 8:53 AM 02/22/2025 3:11 PM * Full Code Date Activated Date Inactivated Comments 12/07/2024 8:30 PM 12/09/2024 4:46 PM * Full Code Date Activated Date Inactivated Comments 05/30/2024 12:38 PM 06/05/2024 6:31 PM * Full Code Date Activated Date Inactivated Comments 05/04/2023 2:33 PM 05/07/2023 3:07 AM 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 Relationship Specialty Start Date End Date Alee Elizondo PA [address] [place] [address] PCP - General Internal Medicine 07/05/23 Sharan Linton MD Referring Physician Gastroenterology 10/31/18 Martha Starks MD Consulting Physician Cardiology 12/24/20 Shama Hines MD [address] [facility] [address] Consulting Physician Pain Management 01/19/21 Artis Grewal MD [address] [place] [address] Consulting Physician Rheumatology 01/30/21 Amy Mayes NP [address] [facility] [address] [place] [address] Nurse Practitioner Cardiovascular Disease 04/20/24 Shailesh Dunn MD [address] [address] Consulting Physician Pulmonary Disease 04/20/24 Sangita Farrar PA [address] [place] [address] Physician Cash Specialist Rheumatology 05/15/24 Timi Cox MD [address] [facility] [id number] [place] [address] Surgeon Colon and Rectal Surgery 01/08/25 Teofilo Gongora MD [address] [facility] [id number] [place] [address] Urologist Urology 01/08/25
[2025-06-06 12:44] LABS: Add Urine Microscopic? YES; Appearance Urine Clear (Clear); Glucose Urine UA Negative (Negative); Leukocyte Esterase Ur 3+ LEU/UL (Negative); Need Manual Microscopic Reviewed; Nitrate Urine Positive (Negative); Non Pathogenic Casts 0-2; Specific Grav Ur 1.006 (1.001-1.035)
[2025-06-06] MEDS: SODIUM CHLORIDE 0.9% IV 1,000 ML 999 ML IV CONT (13:05)
[2025-06-06] MEDS: ONDANSETRON INJ 4 MG/2 ML VIAL IV PUSH (13:05)
[2025-06-06] MEDS: KETOROLAC 30 MG/ML VIAL (*BKC) IV PUSH (13:05)
[2025-06-06 13:21] LABS: Hematocrit 36.1 % (37.0-47.0); Hemoglobin 11.8 g/dL (12.0-15.0); Immature Granulocyte Percent A 0.0 % (0-0.5); Lymphocytes Absolute Auto 0.96 K/mm3 (0.9-3.2); Mean Corpuscular HGB Conc 32.7 g/dl (32-36); Mean Corpuscular Hemoglobin 32.7 pg (26-34); Mean Corpuscular Volume 100.0 fl (80-100); Nucleated Red Blood Cells Absolute Auto 0.000 K/mm3 (0.0-0.012); Nucleated Red Blood Cells Perc 0.0 % (0.0-0.2); Platelet Count Result 179 k/mm3 (150-375); Red Blood Count 3.61 M/mm3 (4.2-5.4); White Blood Count 4.5 K/mm3 (4.5-10.0)
[2025-06-06 13:51] LABS: Alanine Aminotransferase 22 U/L (6-35); Albumin Level 4.1 g/dL (3.5-5.1); Alkaline Phosphatase 130 U/L (38-126); Anion Gap 5 mmol/L (4-12); Aspartate Amino Transferase 33 U/L (14-36); Bilirubin,Total 0.7 mg/dL (0.2-1.3); Blood Urea Nitrogen 21 mg/dL (7-17); Calcium 9.6 mg/dL (8.4-10.2); Carbon Dioxide 24 mmol/L (22-30); Chloride 110 mmol/L (98-107); Estimated CRCL calculation 38 ml/min; Estimated Glomerular Filt Rate 45; Glucose 82 mg/dL (65-110); Potassium 3.8 mmol/L (3.4-5.0); Sodium 139 mmol/L (137-145); Total Protein 7.3 g/dL (6.3-8.2)
--- NOTE | 2025-06-06 14:41 | ED.GENADULT ---
HPI - General Adult General Chief complaint: Urogenital-Female Stated complaint: HEMATURIA,N/V FLANK PAIN Time Seen by Provider: 06/06/25 12:02 History of Present Illness HPI narrative: Patient is a 69-year-old female who presents ER with concerns for possible UTI. Had recently been hospitalized for sepsis at [facility]. She has a suprapubic catheter. She also has history kidney stones. She started having some discomfort in her lower abdomen moving to left side and noticed some blood in became concerned that she may be passing a stone or may be developing an infection again. She has had some vomiting. No chest pain or shortness of breath. No additional concerns. Related Data Home Medications ?Medication ?Instructions ?Recorded ?Confirmed ?Last Taken ?Type aspirin 81 mg tablet,delayed 81 mg PO DAILY 06/20/19 02/29/24 12/11/23 History release (Adult Low Dose Aspirin) bupropion HCl 150 mg 24 hr tablet, 150 mg PO QAM 06/20/19 02/29/24 12/14/23 History extended release hydroxychloroquine 200 mg tablet 200 mg PO BID 06/20/19 02/29/24 12/13/23 20:00 History montelukast 10 mg tablet 10 mg PO QHS 06/20/19 02/29/24 12/08/23 History potassium chloride 10 mEq 10 meq PO DAILY 06/20/19 02/29/24 12/13/23 History tablet,extended release folic acid 1 mg tablet 2 mg PO DAILY 06/21/19 02/29/24 12/13/23 History duloxetine 60 mg capsule,delayed 60 mg PO DAILY 08/20/19 02/29/24 12/14/23 History release cholecalciferol (vitamin D3) 125 125 mcg PO DAILY 03/08/21 02/29/24 12/08/23 History mcg (5,000 unit) tablet (Vitamin D3) docusate sodium 100 mg capsule 200 mg PO BID 03/08/21 02/29/24 12/08/23 History (Colace) ropinirole 0.5 mg tablet 1 mg PO HS 07/14/21 02/29/24 12/13/23 20:00 History abatacept 125 mg/mL subcutaneous 125 mg subcut WEEKLY 07/22/23 02/29/24 Unknown History syringe (Orencia) bumetanide 1 mg tablet 1 mg PO BID 07/22/23 02/29/24 12/13/23 History clobetasol 0.05 % lotion (Clobex) 1 applic topical BID PRN Itching 07/22/23 02/29/24 12/03/23 History gabapentin 100 mg capsule 200 mg PO BID 07/22/23 02/29/24 12/13/23 20:00 History tramadol 50 mg tablet 50 mg PO Q6H PRN Pain 07/22/23 02/29/24 12/08/23 History methotrexate sodium 2.5 mg tablet 17.5 mg PO WEEKLY 12/05/23 02/29/24 12/07/23 History cetirizine 10 mg capsule (Zyrtec) 10 mg PO DAILY PRN 09/18/24 Unknown History rosuvastatin 10 mg tablet 10 mg PO 09/18/24 Unknown History hydrocodone 5 mg-acetaminophen 325 1 tablet PO 04/01/25 Unknown History mg tablet meloxicam 15 mg tablet 15 mg PO DAILY 04/01/25 Unknown History Allergies Allergy/AdvReac Type Severity Reaction Status Date / Time meperidine Allergy Severe HIVES Verified 06/06/25 10:33 Penicillins Allergy Severe RASH Verified 06/06/25 10:33 hydrocodone Allergy Intermediate HIVES Verified 06/06/25 10:33 Review of Systems Review of Systems: All systems reviewed & are unremarkable except as noted in HPI and below Constitutional: Constitutional: Reports no additional constitutional complaints Cardiovascular: Cardiovascular: Reports no additional cardiovascular complaints Respiratory: Respiratory: Reports no additional respiratory complaints Gastrointestinal: Gastrointestinal: Reports no additional gastrointestinal complaints Musculoskeletal: Musculoskeletal: Reports no additional musculoskeletal complaints [facility] Past Medical History Medical History Obese Arthritis OWEN (obstructive sleep apnea) GERD (gastroesophageal reflux disease) Kidney stones Depression Angina of effort Asthma Hyperlipidemia CAD (coronary atherosclerotic disease) H/O: HTN (hypertension) Moderate persistent asthma without complication Obstructive sleep apnea (adult) (pediatric) Rhinitis Surgical History Surgical History H/O dilation and curettage History of lithotripsy History of hysterectomy History of repair of hiatal hernia Laparoscopic repair hiatal hernia, laparoscopic Leonor fundoplication 12/14/23 History of left knee replacement History of cholecystectomy S/P appy Family History Family History Mother Chronic HF (heart failure) Family history of diabetes mellitus in first degree relative Cerebrovascular accident Father Family history of malignant neoplasm of kidney Family history of liver disease Carcinoma of colon Atrial fibrillation Other Acute myocardial infarction Asthma Diabetes mellitus Family history of arthritis Family history of cardiovascular disease Family history of chronic obstructive pulmonary disease Family history of congestive heart failure Hypertension Malignant neoplasm of prostate Social History Social History Smoking status: Never smoker Alcohol intake: never Substance use: never Substance use type: does not use Lack of Transportation: No Lack of Food: Never True Current Housing: I Have Housing Concerned About Future Housing: No Difficulty Paying Gas/Electric Bills: No Difficulty Paying for Meds: No Currently Unemployed: No Education: High School Diploma/GED Difficulty w/ Childcare or Family Care: No Living arrangements: alone Spiritual care concerns: No Exam Narrative: GENERAL: Well-appearing, well-nourished, and in no acute distress. HEAD: Normocephalic, atraumatic. ENT: Mucous membranes moist. CHEST: Clear to auscultation. No respiratory distress. HEART: Regular rate and rhythm. Normal peripheral pulses. ABDOMEN: Soft, nontender, nondistended. EXTREMITIES: Normal range of motion. No edema. SKIN: Warm, dry, no rash. NEURO: Alert and oriented x3. PSYCH: Normal mood and affect. Course Course Emergency Course: Urinalysis with 51-100 white blood cells and 3+ leukocyte esterase and positive nitrate. Given patient's history will put her on cephalexin. No bacteria was seen. Discharged home and follow-up with PCP. Abdominal pain felt to be related to dry heaving. Vital Signs Vital signs: Vital Signs Temperature 98.6 F 06/06/25 11:09 Pulse Rate 65 06/06/25 11:09 Respiratory Rate 18 06/06/25 11:09 Blood Pressure 115/52 L 06/06/25 11:09 Pulse Oximetry 100 06/06/25 11:09 Temperature 98.6 F 06/06/25 11:09 Pulse Rate 86 06/06/25 14:01 Respiratory Rate 12 06/06/25 14:01 Blood Pressure 112/52 L 06/06/25 14:01 Pulse Oximetry 92 06/06/25 14:01 Oxygen Delivery Room Air 06/06/25 12:19 [facility] Differential Diagnosis Differential Diagnosis: Kidney stone, UTI, sepsis, diverticulitis, bowel obstruction, abdominal wall strain Lab Data [facility] Lab Attestation statement: I personally reviewed the patient's lab results. 06/06/25 13:02 06/06/25 13:02 Labs: Lab Results 06/06/25 06/06/25 Range/Units 12:15 13:02 WBC 4.5 (4.5-10.0) K/mm3 RBC 3.61 L (4.2-5.4) M/mm3 Hgb 11.8 L (12.0-15.0) g/dL Hct 36.1 L (37.0-47.0) % MCV 100.0 (80-100) fl MCH 32.7 (26-34) pg MCHC 32.7 (32-36) g/dl RDW 14.2 (11.5-14.5) % Plt Count 179 (150-375) k/mm3 MPV 10.1 (7.4-10.4) fl Immature Gran % (Auto) 0.0 (0-0.5) % Neut % (Auto) 63.8 (45.5-73.1) % Lymph % (Auto) 21.3 (18.3-44.2) % [place] % (Auto) 8.6 H (2.6-8.5) % Eos % (Auto) 4.7 H (0-4.4) % Baso % (Auto) 1.6 H (0.2-1.2) % Lymph # (Auto) 0.96 (0.9-3.2) K/mm3 [place]clennan # (Auto) 0.4 (0.1-0.6) K/mm3 Eos # (Auto) 0.2 (0-0.3) K/mm3 Baso # (Auto) 0.1 (0.0-0.1) K/mm3 Abs Immat Gran (auto) 0.00 (0.00-0.031) K/mm3 Absolute Neuts (auto) 2.9 (1.3-6.7) K/mm3 Absolute Nucleated RBC 0.000 (0.0-0.012) K/mm3 Nucleated RBC % 0.0 (0.0-0.2) % Sodium 139 (137-145) mmol/L Potassium 3.8 (3.4-5.0) mmol/L Chloride 110 H (98-107) mmol/L Carbon Dioxide 24 (22-30) mmol/L Anion Gap 5 (4-12) mmol/L BUN 21 H (7-17) mg/dL Creatinine 1.20 H (0.7-1.0) mg/dL Estim Creat Clear Calc 38 ml/min Estimated GFR 45 L (59 - ) Glucose 82 (65-110) mg/dL Calcium 9.6 (8.4-10.2) mg/dL Total Bilirubin 0.7 (0.2-1.3) mg/dL AST 33 (14-36) U/L ALT 22 (6-35) U/L Alkaline Phosphatase 130 H (38-126) U/L Total Protein 7.3 (6.3-8.2) g/dL Albumin 4.1 (3.5-5.1) g/dL Urine Color Yellow (Yellow) Urine Appearance Clear (Clear) Urine pH 6.5 (5.0-9.0) Ur Specific [place] 1.006 (1.001-1.035) Urine Protein Negative (Negative) mg/dL Urine Glucose (UA) Negative (Negative) mg/dL Urine Ketones Negative (Negative) mg/dL Ur Blood (Man) 1+ H (Negative) Urine Nitrate Positive H (Negative) Urine Bilirubin Negative (Negative) Urine Urobilinogen 0.2 (<2.0) mg/dL Add Ur Microanalysis Reviewed Leukocyte Esterase Rfl 3+ H (Negative) JACQUELYN/UL Urine RBC 11-20 H (0-2) /hpf Urine WBC 51-100 H (0-3) /hpf Ur Squamous Epith Cells None seen (Few) /hpf Urine Bacteria None seen /hpf Urine Casts 0-2 Imaging Data Radiologist's impression: ITS Impressions Abdomen/Pelvis CT 06/06/25 11:04 IMPRESSION: 1. No acute findings. Discharge Plan Discharge Clinical Impression: Acute UTI, Abdominal wall strain Patient Disposition: Home Condition: Stable Instructions: Antibiotic Form, Urinary Tract Infection in Women (ED) Additional Instructions: You should return to the emergency department if you develop severe nausea and vomiting and are unable to keep liquids down, if you develop severe back/flank or stomach pain, or if your symptoms are not clearly improving at home. Patient Language: Citizen Of [place] Prescriptions: New cephalexin 500 mg capsule 500 mg PO Q12H Qty: 14 0RF No Action duloxetine 60 mg capsule,delayed release(DR/EC) 60 mg PO DAILY potassium chloride 10 mEq tablet extended release 10 meq PO DAILY montelukast 10 mg tablet 10 mg PO QHS hydroxychloroquine 200 mg tablet 200 mg PO BID bupropion HCl 150 mg tablet extended release 24 hr 150 mg PO QAM aspirin [Adult Low Dose Aspirin] 81 mg tablet,delayed release (DR/EC) 81 mg PO DAILY folic acid 1 mg tablet 2 mg PO DAILY nystatin 100,000 unit/gram powder 1 applic topical BID Qty: 60 0RF hydrocodone-acetaminophen 5-325 mg tablet 1 tablet PO meloxicam 15 mg tablet 15 mg PO DAILY fluconazole 150 mg tablet 150 mg PO Q72H Qty: 2 0RF Rx Instructions: as a single dose Zyrtec 10 mg capsule 10 mg PO DAILY PRN rosuvastatin 10 mg tablet 10 mg PO lidocaine 5 % adhesive patch,medicated 1 patch topical DAILY Qty: 15 0RF Rx Instructions: leave on most painful area for up to 12 hrs. do not use more than 1 patch in a 24-hour period. cefuroxime axetil 500 mg tablet 500 mg PO BID Qty: 10 0RF cyclobenzaprine 5 mg tablet 5 mg PO TID PRN (Reason: muscle spasm) Qty: 14 0RF acetaminophen 500 mg capsule 500 mg PO Q6H PRN (Reason: pain) Qty: 14 0RF docusate sodium [Colace] 100 mg Capsule 200 mg PO BID cholecalciferol (vitamin D3) [Vitamin D3] 125 mcg (5,000 unit) Tablet 125 mcg PO DAILY ropinirole 0.5 mg Tablet 1 mg PO HS bumetanide 1 mg tablet 1 mg PO BID gabapentin 100 mg capsule 200 mg PO BID Patient Comments: TAKES 400MG AT HS clobetasol [Clobex] 0.05 % Lotion 1 applic TOPICAL BID PRN (Reason: Itching) Rx Instructions: apply to scalp tramadol 50 mg tablet 50 mg PO Q6H PRN (Reason: Pain) Orencia 125 mg/mL Syringe 125 mg SUBCUT WEEKLY Patient Comments: Tuesday' methotrexate sodium 2.5 mg tablet 17.5 mg PO WEEKLY Patient Comments: TAKES ON WEDNESDAYS Linzess 290 mcg capsule See Rx Instructions .ROUTE .COMPLEX Qty: 30 11RF Dose Instruction: TAKE 1 CAPSULE BY MOUTH EVERY DAY Rx Instructions: TAKE 1 CAPSULE BY MOUTH EVERY DAY Follow-up/Referrals: Mikhail,JACQUI Vickers [Primary Care Provider, Unknown] - 1 Week
--- NOTE | 2025-06-06 15:31 | PC.NURSE ---
pt expressed frustration due to being discharged without pain medication. this RN educated pt that an antibiotic was prescribed for her UTI and to take Tylenol/ibuprofen for the pain. pt says that's like taking water pt said I'm never coming back to this hospital I never want to see that doctor again EDP aware
== END 2025-06-06 15:35 | disposition home or self-care (01) ==
PROVIDERS: Emergency Medicine; Emergency Provider Emergency Medicine; PCP Physician Assistant
DX: N39.0 Urinary tract infection, site not specified (principal); S39.011A Strain of muscle, fascia and tendon of abdomen, initial encounter; I25.118 Atherosclerotic heart disease of native coronary artery with other forms of angina pectoris; J45.40 Moderate persistent asthma, uncomplicated; E78.5 Hyperlipidemia, unspecified; K21.9 Gastro-esophageal reflux disease without esophagitis; M19.90 Unspecified osteoarthritis, unspecified site; G47.33 Obstructive sleep apnea (adult) (pediatric); Z96.652 Presence of left artificial knee joint; Z87.442 Personal history of urinary calculi; Z90.710 Acquired absence of both cervix and uterus; Z90.49 Acquired absence of other specified parts of digestive tract; Z79.82 Long term (current) use of aspirin; Z79.899 Other long term (current) drug therapy; X58.XXXA Exposure to other specified factors, initial encounter
CPT/HCPCS: 36415; 74176; 80053; 81001; 85025; 87086; 87186; 96361; 96374; 96375; 99284; J1885; J2405; J7030

== ENCOUNTER 2025-06-07 18:53 | Inpatient (IN) | payer MEDICARE, SELFPAY ==
--- OUTSIDE RECORDS SUMMARY | 2025-06-06 09:30 | XMS_ITS | Encounter Summary ---
Author Organization [facility] Healthcare Address [address] [place] [address] Care Team Providers Care Rigging Loft Repairer Name Role Phone Sharan Linton MD Unavailable [phone] Martha Starks MD Unavailable [phone] Shama Hines MD Unavailable Artis Grewal MD Unavailable [phone] Alee Elizondo Primary Care Provider [phone] Amy Mayes NP Unavailable [phone] Shailesh Dunn MD Unavailable [phone] Sangita Farrar Unavailable [phone] Timi Cox MD Unavailable [phone] Teofilo Gongora MD Unavailable [phone] Reason for Visit * Reason Comments Urinary Symptom Pain in back and abd omen Encounter Details Date Type Department Care Team (Latest Contact Info) Description 06/06/2025 9:30 AM BUNDLE PACKER Clinical Support [facility] Medical Group Family Medicine [address] [facility] [address] [place] [address] Left flank pain (Primary Dx); Dysuria Social History Tobacco Use Types Packs/Day Years Used Date Smoking Tobacco: Never Smokeless Tobacco: Never Comments:Never used Alcohol Use Standard Drinks/Week Comments Never 0 (1 standard drink = 0.6 oz pur e alcohol) Social Connection and Isolation Panel Answer Date Recorded In a typical week, how many times do you talk on the phone with family, friends, or neighbors? Twice a week 05/30/20 How often do you get togethe r with friends or relatives? Twice a week 05/30/2024 How often do you attend chur ch or islam services? 1 to 4 times per year [...] or living with a partner? Never 05/30/2024 Overall Financial Resource Strain (CARDIA) Answe r Date Recorded How hard is it for you to pa y for the very basics like food, housing, medical care, and heating? Not hard at all 05/30/2024 PHQ-2 Answer Date Recorded PHQ-2 Total Score (If total score is 3 or more points, staff should administer the PHQ-9) 0 05/24/2025 PRAPARE - Transportation Answer Date Re corded [...] a senior living (including now)? No 05/30/2024 Social Connection and Isolation Panel Answer Date Recorded In a typical week, how many times do you talk on the phone with family, friends, or neighbors? Twice a week 05/20/20 How often do you get togethe r with friends or relatives? Twice a week 05/20/2025 How often do you attend chur ch or islam services? 1 to 4 times per year 05/20/2025 Do you belong to any clubs o r organizations such as evangelical groups, unions, fraternal or athletic groups, or school groups? No 05/20/2025 How often do you attend meet ings of the clubs or organizations you belong to? Never 05/20/2025 Are you , , di vorced, , never , or living with a partner? Never 05/20/2025 AUDIT-C Answer Date Recorded Q1: How often do you have a drink containing alcohol? Never 05/24/2025 Q2: How many drinks containi ng alcohol do you have on a typical day when you are drinking? Patient does not drink Q3: How often do you have si x or more drinks on one occasion? Never 05/24/2025 Overall Financial Resource Strain (CARDIA) Answe r Date Recorded How hard is it for you to pa y for the very basics like food, housing, medical care, and heating? Not hard at all 05/20/2025 Hunger Vital Sign Answer Date Recorded Within the past 12 months, y ou worried that your food would run out before you got the money to buy more. Never true 05/20/20 Within the past 12 months, t he food you bought just didn't last and you didn't have money to get more. Never true 05/20/2025 PRAPARE - Transportation Answer Date Re corded In the past 12 months, has l ack of transportation kept you from medical appointments or from getting medications? No 05/04 In the past 12 months, has l ack of transportation kept you from meetings, work, or from getting things needed for daily living? No 05/20/2025 Housing Stability Vital Sign Answer Jarrett e Recorded In the last 12 months, was t here a time when you were not able to pay the mortgage or rent on time? No 05/20/2025 In the past 12 months, how m any times have you moved where you were living? 0 05/20/2025 At any time in the past 12 m onths, were you homeless or living in a senior living (including now)? No 05/20/2025 [facility] Utilities Answer Date Recorded In the past 12 months has th e Rapid [employer]oc[employer], gas, oil, or water [employer] threatened to shut off services in your home? No 05/20/2025 Personal Safety Answer Date Recorded Have you ever been in or are you currently in a harmful physical or emotional relationship or is someone making you feel afraid or unsafe? Denies 05/17/2025 Comments No Sex and Gender Information Value Date Recorded Sex Assigned at Not on file Legal Sex Female 8:04 PM BUNDLE PACKER Gender Identity Female 02/15/2020 6:08 PM CDT Sexual Orientation Not on file documented as of this encounter Progress Notes * Caitlyn Hua MA - 06/06/2025 9:30 AM CST error LE PACKER documented in this encounter Plan of Treatment Scheduled Orders Name Type Priority Associated Diagnoses Orde r Schedule Urine culture Urine, clean voided Microbiology Routine Left flank pain Dysuria Expected: 06/06/2025, Expires: 06/06/2026 documented as of this encounter Procedures Procedure Name Priority Date/Time Associated Diagnosis Comments POCT URINALYSIS DIPSTICK Routine 06/06/2025 9:45 AM BUNDLE PACKER Left flank pain Dysuria documented in this encounter Results * (ABNORMAL) POCT urinalysis dipstick (06/06/2025 9:45 AM BUNDLE PACKER) Glucose, ur, POC Negative Negative Bilirubin, ur, POC Negative Negative Ketones, ur, POC Negative Negative Specific [place], POC 1.015 1.003 - 1.030 Blood, ur, POC Trace(A) Negative pH, ur, POC 6.5 5.0 - 8.0 Protein, ur, POC Negative Negative Urobilinogen, urine, POC 0.2 0.2 - 1.0 mg/dL Nitrite, ur, POC Positive(A) Negative Leukocytes, ur, POC Moderate(A) Negative Lot Number [id number] Urine 06/06/2025 9:45 AM BUNDLE PACKER us Alee OSMAN POINT OF CARE TEST ORDERAB LES Edited Result - Final documented in this encounter Visit Diagnoses Diagnosis Left flank pain- Primary Abdominal pain, unspecified site Dysuria documented in this encounter Care Teams Rigging Loft Repairer Relationship Specialty Start Date End Date Alee Elizondo PA [address] [facility] [address] [place] [address] PCP - General Internal Medicine 07/05/23 Sharan Linton MD Referring Physician Gastroenterology 10/31/18 Martha Starks MD Consulting Physician Cardiology 12/24/20 Shama Hines MD [address] [facility], [address] [address] Consulting Physician Pain Management 01/19/21 Artis Grewal MD [address] [place] [address] Consulting Physician Rheumatology 01/30/21 Amy Mayes NP [address] [facility] [address] [place] [address] Nurse Practitioner Cardiovascular Disease 04/20/24 Shailesh Dunn MD [address] [facility] [place] [address] Consulting Physician Pulmonary Disease 04/20/24 Sangita Farrar PA [address] [place] [address] Physician Floral Decorator Rheumatology 05/15/24 Timi Cox MD [address] [facility] [id number] [place] [address] Surgeon Colon and Rectal Surgery 01/08/25 Teofilo Gongora MD [address] [facility] [id number] [place] [address] Urologist Urology 01/08/25 documented as of this encounter
--- NOTE | ~2025-06-07 | CT_ITS ---
EXAMINATION: CT abdomen pelvis wo/w con DATE: 06/08/2025 01:29 INDICATION: Flank pain. TECHNIQUE: Computed tomography (CT) of the abdomen and pelvis was performed without and with 100 mL Omnipaque 350 intravenous contrast. Automated exposure control and iterative reconstruction technique were employed. The dose-length product was 1737.95 mGy-cm. COMPARISON: CT abdomen and pelvis 06/06/2025 FINDINGS: The visualized portions of the lung bases demonstrate mild atelectasis. No pleural effusion. The heart size is normal. No pericardial effusion. There is a 4.6 cm mass in segment I of the liver with interrupted peripheral puddling of contrast, consistent with a hemangioma. Calcifications in the liver and spleen are consistent with old granulomatous disease. There are changes of cholecystectomy. The pancreas and adrenal glands are normal. There is a 3.3 cm cyst in right kidney. There is a 5 mm stone in left kidney. The ureters are not well opacified distally, but are normal. There is a suprapubic catheter in expected position. The bladder is distended. There are no dilated loops of bowel. The appendix is not visualized. There are no pathologically enlarged lymph nodes. There is no ascites. There is severe thoracic spondylosis lumbar spondylosis. IMPRESSION: 1. Nonobstructing left kidney stone. Reviewed, dictated and finalized at location [facility]. [facility]
[2025-06-07 19:11] VITALS: BP 111/69; PULSE 96; RESP 18; TEMP 36.7; O2SAT 100
--- NOTE | 2025-06-07 21:04 | ECG_ITS ---
Test Date: 2025-06-07 21:18:28 Measurements Intervals Bath Rate: 78 P: 56 RI: 183 QRS: 31 QRSD: 90 T: 41 QT: 368 QTc: 421 Interpretive Statements SINUS RHYTHM INCOMPLETE RIGHT BUNDLE BRANCH BLOCK LOW QRS VOLTAGE IN PRECORDIAL LEADS BASELINE ARTIFACT- I, II, AVR, AVL, AVF, V1 BORDERLINE ECG Compared to ECG 12/26/2023 13:24:44 Incomplete right bundle-branch block no longer present Electronically Signed On 06-08-2025 09:17:35 STATISTICAL TECHNICIAN by Faisal Gonzalez D.O.
--- NOTE | 2025-06-07 21:04 | ED.FEMALEGU ---
HPI - Female Genitourinary General Chief complaint: Urogenital-Female Stated complaint: bloody urine Time Seen by Provider: 06/07/25 21:03 Source: patient Mode of arrival: ambulatory Limitations: no limitations History of Present Illness HPI Narrative: Patient is a 69-year-old female presents to the emergency department complaining of dysuria, urinary frequency, urinary urgency, bilateral flank pain worse on the left, suprapubic discomfort, nausea with dry heaving, hematuria. Patient notes that she feels similar to when she had sepsis in the past back in May from a UTI. Patient was seen here yesterday and having a CT scan done and getting dentist with the UTI and started up on Macrobid which she has been taking and feels her symptoms are getting worse. Patient admits to regular bowel movements. patient denies use of blood thinners. Patient notes this afternoon around 4:00 p.m. she started being of frankly bright red blood. Admits to history of kidney stones. Notes that she called her urologist out of [facility] and was told to go to the ER. Suprapubic catheter. Related Data Home Medications ?Medication ?Instructions ?Recorded ?Confirmed ?Last Taken ?Type aspirin 81 mg tablet,delayed 81 mg PO DAILY 06/20/19 02/29/24 12/11/23 History release (Adult Low Dose Aspirin) bupropion HCl 150 mg 24 hr tablet, 150 mg PO QAM 06/20/19 02/29/24 12/14/23 History extended release hydroxychloroquine 200 mg tablet 200 mg PO BID 06/20/19 02/29/24 12/13/23 20:00 History montelukast 10 mg tablet 10 mg PO QHS 06/20/19 02/29/24 12/08/23 History potassium chloride 10 mEq 10 meq PO DAILY 06/20/19 02/29/24 12/13/23 History tablet,extended release folic acid 1 mg tablet 2 mg PO DAILY 06/21/19 02/29/24 12/13/23 History duloxetine 60 mg capsule,delayed 60 mg PO DAILY 08/20/19 02/29/24 12/14/23 History release cholecalciferol (vitamin D3) 125 125 mcg PO DAILY 03/08/21 02/29/24 12/08/23 History mcg (5,000 unit) tablet (Vitamin D3) docusate sodium 100 mg capsule 200 mg PO BID 03/08/21 02/29/24 12/08/23 History (Colace) ropinirole 0.5 mg tablet 1 mg PO HS 07/14/21 02/29/24 12/13/23 20:00 History abatacept 125 mg/mL subcutaneous 125 mg subcut WEEKLY 07/22/23 02/29/24 Unknown History syringe (Orencia) bumetanide 1 mg tablet 1 mg PO BID 07/22/23 02/29/24 12/13/23 History clobetasol 0.05 % lotion (Clobex) 1 applic topical BID PRN Itching 07/22/23 02/29/24 12/03/23 History gabapentin 100 mg capsule 200 mg PO BID 07/22/23 02/29/24 12/13/23 20:00 History tramadol 50 mg tablet 50 mg PO Q6H PRN Pain 07/22/23 02/29/24 12/08/23 History methotrexate sodium 2.5 mg tablet 17.5 mg PO WEEKLY 12/05/23 02/29/24 12/07/23 History cetirizine 10 mg capsule (Zyrtec) 10 mg PO DAILY PRN 09/18/24 Unknown History rosuvastatin 10 mg tablet 10 mg PO 09/18/24 Unknown History hydrocodone 5 mg-acetaminophen 325 1 tablet PO 04/01/25 Unknown History mg tablet meloxicam 15 mg tablet 15 mg PO DAILY 04/01/25 Unknown History Allergies Allergy/AdvReac Type Severity Reaction Status Date / Time meperidine Allergy Severe HIVES Verified 06/07/25 19:15 Penicillins Allergy Severe RASH Verified 06/07/25 19:15 hydrocodone Allergy Intermediate HIVES Verified 06/07/25 19:15 Review of Systems Review of Systems: A 10 system review of systems was completed on the patient and is negative except for what is stated in the HPI. Nursing and ancillary documentation was reviewed. [facility] Past Medical History Medical History Obese Arthritis OWEN (obstructive sleep apnea) GERD (gastroesophageal reflux disease) Kidney stones Depression Angina of effort Asthma Hyperlipidemia CAD (coronary atherosclerotic disease) H/O: HTN (hypertension) Moderate persistent asthma without complication Obstructive sleep apnea (adult) (pediatric) Rhinitis Surgical History Surgical History H/O dilation and curettage History of lithotripsy History of hysterectomy History of repair of hiatal hernia Laparoscopic repair hiatal hernia, laparoscopic Leonor fundoplication 12/14/23 History of left knee replacement History of cholecystectomy S/P appy Family History Family History Mother Chronic HF (heart failure) Family history of diabetes mellitus in first degree relative Cerebrovascular accident Father Family history of malignant neoplasm of kidney Family history of liver disease Carcinoma of colon Atrial fibrillation Other Acute myocardial infarction Asthma Diabetes mellitus Family history of arthritis Family history of cardiovascular disease Family history of chronic obstructive pulmonary disease Family history of congestive heart failure Hypertension Malignant neoplasm of prostate Social History Social History Smoking status: Never smoker Alcohol intake: never Substance use: never Substance use type: does not use Lack of Transportation: No Lack of Food: Never True Current Housing: I Have Housing Concerned About Future Housing: No Difficulty Paying Gas/Electric Bills: No Difficulty Paying for Meds: No Currently Unemployed: No Education: High School Diploma/GED Difficulty w/ Childcare or Family Care: No Living arrangements: alone Spiritual care concerns: No Exam Narrative: CONST: Mild acute distress. HENMT: Head is normocephalic and atraumatic. tacky mucous membranes. No posterior oropharynx erythema. EYES: No scleral icterus. No conjunctival injection or pallor. PERRL. NECK: No meningeal signs. RESP: Able to speak in full sentences. Normal respiratory effort. CTAB. CARDIO: Regular rate. Regular rhythm. 2+ DP and pulses bilaterally. GI: Nondistended. Mild suprapubic tenderness to palpation, no rebound or guarding or rigidity. Soft. Suprapubic catheter in place. : bilateral CVA tenderness to palpation, left greater than right. SKIN: No rashes or lesions noted on exposed skin. NEURO: Oriented x3. Moves all extremities. EXTREM/MSK/BACK: No pedal edema. 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 PSYCH: Normal affect. Course Vital Signs Vital signs: Vital Signs Temperature 98.0 F 06/07/25 19:11 Pulse Rate 96 06/07/25 19:11 Respiratory Rate 18 06/07/25 19:11 Blood Pressure 111/69 06/07/25 19:11 Pulse Oximetry 100 06/07/25 19:11 Oxygen Delivery Room Air 06/07/25 19:11 Temperature 98.0 F 06/07/25 19:11 Pulse Rate 82 06/07/25 23:48 Respiratory Rate 18 06/07/25 23:48 Blood Pressure 115/58 L 06/07/25 23:48 Pulse Oximetry 97 06/07/25 23:48 Oxygen Delivery Room Air 06/07/25 19:11 [facility] Narrative Medical decision making narrative: Patient presents with the above complaint. Initial vitals are remarkable for no significant abnormalities. Physical examination as noted above. Plan discussed: laboratory analysis, EKG, imaging. Patient ordered IVF, morphine, continuous cardiac monitoring, continuous pulse oximetry, ceftriaxone given diagnosis of UTI yesterday. Less than 30ml/kg crystalloid bolus was ordered because it would be detrimental or harmful for the patient. The patient has the following condition Concern for fluid Overload. In place of the 30ml/kg crystalloid bolus, the patient is to receive 150 cc/hr NS. CT urogram preliminary report radiologist impression is no hydronephrosis, hazy appearance to the urinary bladder wall. Cornea with urinalysis to assess for cystitis. Compared to June 06, 2025 no hydronephrosis, nonobstructing parenchymal calcification in the left kidney, simple right kidney cyst, symmetric renal enhancement, chronic granulomatous disease of the liver and spleen, mass lesion involving the caudate lobe of the liver favoring hemangioma stable from prior, cholecystectomy, fatty replacement of the pancreas, unremarkable adrenal glands, no aortic aneurysm, suprapubic catheter extends to the urinary bladder. Hazy, mildly thickened bladder wall. Hysterectomy. No acute osseous findings. No bowel obstruction. Appendix not visualized. Given patient's still having a lot of pain despite pain medications, bounce back, failed outpatient antibiotics, immunosuppression, will plan for IV antibiotics and period of observation. I spoke with the hospitalist on-call who has accepted the patient for admission. Differential Diagnosis Differential Diagnosis: UTI, pyelonephritis, ureterolithiasis, metabolic derangement, electrolyte derangement, AAA, colitis, enteritis, pancreatitis, hepatobiliary pathology, gastritis, peptic ulcer disease. Medical Records I have reviewed the following patient records and this information was taken into consideration when formulating the assessment and plan.: previous ER visits Lab Data [facility] Lab Attestation statement: I personally reviewed the patient's lab results. Lab results narrative: CBC reveals a white blood cell count of 5.1, hemoglobin of 10.1, platelet count 149. Coags are within normal limits. Comprehensive metabolic panel reveals chloride 114, bicarb 21, BUN of 24, creatinine 1.19. BNP is 168. Lipase is 22. CRP is less than 0.5. Magnesium is 1.8. Lactic acid is 0.8. Urinalysis reveals 2+ blood, positive nitrate, 2+ leukocyte esterase, 21-50 RBCs, 21-50 wbc's, no bacteria seen, calcium oxalate crystals present. 06/07/25 23:49 06/07/25 23:49 Labs: Lab Results 06/07/25 Range/Units 23:49 WBC 5.1 (4.5-10.0) K/mm3 RBC 3.06 L (4.2-5.4) M/mm3 Hgb 10.1 L (12.0-15.0) g/dL Hct 30.6 L (37.0-47.0) % MCV 100.0 (80-100) fl MCH 33.0 (26-34) pg MCHC 33.0 (32-36) g/dl RDW 14.3 (11.5-14.5) % Plt Count 149 L (150-375) k/mm3 MPV 10.6 H (7.4-10.4) fl Immature Gran % (Auto) 0.2 (0-0.5) % Neut % (Auto) 53.2 (45.5-73.1) % Lymph % (Auto) 28.4 (18.3-44.2) % Warren % (Auto) 11.9 H (2.6-8.5) % Eos % (Auto) 5.1 H (0-4.4) % Baso % (Auto) 1.2 (0.2-1.2) % Lymph # (Auto) 1.46 (0.9-3.2) K/mm3 Warren # (Auto) 0.6 (0.1-0.6) K/mm3 Eos # (Auto) 0.3 (0-0.3) K/mm3 Baso # (Auto) 0.1 (0.0-0.1) K/mm3 Abs Immat Gran (auto) 0.01 (0.00-0.031) K/mm3 Absolute Neuts (auto) 2.7 (1.3-6.7) K/mm3 Absolute Nucleated RBC 0.000 (0.0-0.012) K/mm3 Nucleated RBC % 0.0 (0.0-0.2) % PT 14.2 (11.1-14.7) Seconds INR 1.1 APTT 23.0 (22.3-36.8) Seconds Sodium 138 (137-145) mmol/L Potassium 4.0 (3.4-5.0) mmol/L Chloride 114 H (98-107) mmol/L Carbon Dioxide 21 L (22-30) mmol/L Anion Gap 3 L (4-12) mmol/L BUN 24 H (7-17) mg/dL Creatinine 1.19 H (0.7-1.0) mg/dL Estim Creat Clear Calc 38 ml/min Estimated GFR 45 L (59 - ) Glucose 87 (65-110) mg/dL Lactic Acid 0.8 (0.7-2.0) mmol/L Calcium 9.1 (8.4-10.2) mg/dL Magnesium 1.8 (1.6-2.3) mg/dL Total Bilirubin 0.7 (0.2-1.3) mg/dL AST 32 (14-36) U/L ALT 17 (6-35) U/L Alkaline Phosphatase 98 (38-126) U/L Total Creatine Kinase 113 (30-135) U/L C-Reactive Protein < 0.5 (<1.0) mg/dL NT-Pro-B Natriuret Pep 168 H (19.9-100) pg/mL Total Protein 6.2 L (6.3-8.2) g/dL Albumin 3.4 L (3.5-5.1) g/dL Lipase 22 L (23-300) U/L Urine Color Yellow (Yellow) Urine Appearance Clear (Clear) Urine pH 5.0 (5.0-9.0) Ur Specific Howell 1.010 (1.001-1.035) Urine Protein Trace (Negative) mg/dL Urine Glucose (UA) Negative (Negative) mg/dL Urine Ketones Negative (Negative) mg/dL Ur Blood (Man) 2+ H (Negative) Urine Nitrate Positive H (Negative) Urine Bilirubin Negative (Negative) Urine Urobilinogen 0.2 (<2.0) mg/dL Add Ur Microanalysis Reviewed Leukocyte Esterase Rfl 2+ H (Negative) JACQUELYN/UL Urine RBC 21-50 H (0-2) /hpf Urine WBC 21-50 H (0-3) /hpf Ur Squamous Epith Cells None seen (Few) /hpf Calcium Oxalate Crystal Present (None) /hpf Urine Bacteria None seen /hpf Urine Casts 0-2 ECG Data EKG #1: Attestation: I personally reviewed and interpreted this ECG as follows: ECG completion date: 06/07/25 ECG completion time: 21:18 Interpretation: rate of 78, rhythm is sinus rhythm, axis is normal, no ST elevations or depressions, no overt T-wave abnormalities, NM interval 183 milliseconds, QRS duration of 90 milliseconds, QTC interval is 401 milliseconds. Discharge Plan Discharge Clinical Impression: Intractable pain, Cystitis, Hematuria, NORAH (acute kidney injury), Anemia Patient Disposition: Still a Patient Condition: Stable Patient Language: Cymro Prescriptions: No Action duloxetine 60 mg capsule,delayed release(DR/EC) 60 mg PO DAILY potassium chloride 10 mEq tablet extended release 10 meq PO DAILY montelukast 10 mg tablet 10 mg PO QHS hydroxychloroquine 200 mg tablet 200 mg PO BID bupropion HCl 150 mg tablet extended release 24 hr 150 mg PO QAM aspirin [Adult Low Dose Aspirin] 81 mg tablet,delayed release (DR/EC) 81 mg PO DAILY folic acid 1 mg tablet 2 mg PO DAILY nystatin 100,000 unit/gram powder 1 applic topical BID Qty: 60 0RF hydrocodone-acetaminophen 5-325 mg tablet 1 tablet PO meloxicam 15 mg tablet 15 mg PO DAILY fluconazole 150 mg tablet 150 mg PO Q72H Qty: 2 0RF Rx Instructions: as a single dose Zyrtec 10 mg capsule 10 mg PO DAILY PRN rosuvastatin 10 mg tablet 10 mg PO lidocaine 5 % adhesive patch,medicated 1 patch topical DAILY Qty: 15 0RF Rx Instructions: leave on most painful area for up to 12 hrs. do not use more than 1 patch in a 24-hour period. cefuroxime axetil 500 mg tablet 500 mg PO BID Qty: 10 0RF cyclobenzaprine 5 mg tablet 5 mg PO TID PRN (Reason: muscle spasm) Qty: 14 0RF acetaminophen 500 mg capsule 500 mg PO Q6H PRN (Reason: pain) Qty: 14 0RF docusate sodium [Colace] 100 mg Capsule 200 mg PO BID cholecalciferol (vitamin D3) [Vitamin D3] 125 mcg (5,000 unit) Tablet 125 mcg PO DAILY ropinirole 0.5 mg Tablet 1 mg PO HS bumetanide 1 mg tablet 1 mg PO BID gabapentin 100 mg capsule 200 mg PO BID Patient Comments: TAKES 400MG AT HS clobetasol [Clobex] 0.05 % Lotion 1 applic TOPICAL BID PRN (Reason: Itching) Rx Instructions: apply to scalp tramadol 50 mg tablet 50 mg PO Q6H PRN (Reason: Pain) Orencia 125 mg/mL Syringe 125 mg SUBCUT WEEKLY Patient Comments: methotrexate sodium 2.5 mg tablet 17.5 mg PO WEEKLY Patient Comments: TAKES ON WEDNESDAYS cephalexin 500 mg capsule 500 mg PO Q12H Qty: 14 0RF ondansetron 4 mg tablet,disintegrating 4 mg PO Q6H PRN (Reason: nausea and vomiting) Qty: 10 0RF Linzess 290 mcg capsule See Rx Instructions .ROUTE .COMPLEX Qty: 30 11RF Dose Instruction: TAKE 1 CAPSULE BY MOUTH EVERY DAY Rx Instructions: TAKE 1 CAPSULE BY MOUTH EVERY DAY Follow-up/Referrals: Mikhail,JACQUI Vickers [Primary Care Provider, Unknown] Time of Disposition: 02:12
[2025-06-07 21:06] VITALS: BP 111/47; PULSE 79; RESP 13; O2SAT 100
--- OUTSIDE RECORDS SUMMARY | 2025-06-07 21:27 | XMS_ITS | Encounter Summary ---
Author Organization [facility] Facility Care Team Providers Care Conservation Policy Analyst Name Role Phone Alee Elizondo Primary Care Provider + [phone] Sharan Linton MD Unavailable [phone] Taisha Gomez MD Unavailable [phone] Parag Soto MD Unavailable RaziaMartha singh MD Unavailable [phone] Puneet Uribe MD Unavailable [phone] Shama Hines MD Unavailable Artis Grewal MD Unavailable [phone] Harrison Pena RN Unavailable [phone] Nafisa Gregg RN Unavailable [phone] Tho Kelsey MD Primary Care Provider [phone] Alee Elizondo Primary Care Provider + [phone] Amy Mayes NP Unavailable [phone] Shailesh Dunn MD Unavailable [phone] Sangita Farrar Unavailable [phone] Timi Cox MD Unavailable [phone] Teofilo Gongora MD Unavailable [phone] Allie East LPN Unavailable Encounter Details Date Type Department Care Team (Latest Contact Info) Description 12/31/2015 Orders Only [facility] CLINCONV Provider, MD Tania [facility] [place] [address] Social History Tobacco Use Types Packs/Day Years Used Date Smoking Tobacco: Never Alcohol Use Standard Drinks/Week Comments No 0 (1 standard drink = 0.6 oz pur e alcohol) Comments Unknown Sex and Gender Information Value Date Recorded Sex Assigned at Not on file Legal Sex Female 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 Gender Identity Female 02/15/2020 6:08 PM CDT [...] COVID: Suspected 08/13/2021 08/14/2021 08/14/2021 3:06 AM 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 FILLER AND SEALER COVID: Suspected 08/14/2021 08/14/2021 08/15/2021 3:05 AM AMPOULE FILLER AND SEALER COVID: Suspected 08/14/2021 08/14/2021 08/15/2021 6:25 AM AMPOULE FILLER AND SEALER COVID: Suspected 06/02/2023 06/02/2023 06/02/2023 7:25 PM AMPOULE FILLER AND SEALER COVID: Suspected 07/26/2023 07/26/2023 07/26/2023 3:10 PM AMPOULE FILLER AND SEALER COVID: Suspected 09/25/2024 09/25/2024 09/25/2024 11:03 AM CDT Influenza, adult 09/25/2024 09/25/2024 10/02/2024 3:05 AM CDT COVID: Suspected 10/23/2024 10/23/2024 10/23/2024 1:15 PM CDT COVID: Suspected 12/03/2024 12/03/2024 12/03/2024 10:09 PM CDT documented as of this encounter Care Teams Conservation Policy Analyst Relationship Specialty Start Date End Date Alee Elizondo PA [address] [place] [address] PCP - General Internal Medicine 02/01/17 06/29/23 Tho Kelsey MD [address] [place] [address] [address] [place] [address] PCP - General Family Medicine 06/30/23 07/04/23 Alee Elizondo PA [address] [place] [address] PCP - General Internal Medicine 07/05/23 Sharan Linton MD [address] [place] [address] Referring Physician Gastroenterology 10/31/18 Taisha Gomez MD [address] [place] [address] Referring Physician Pulmonary Disease 10/31/18 12/23/20 Parag Soto MD [address] [place] [address] Referring Physician Rheumatology 10/31/18 12/23/20 Martha Starks MD [address] [place] [address] Consulting Physician Cardiology 12/24/20 Puneet Uribe MD [address] [facility] [address] [place] [address] Consulting Physician Rheumatology 12/24/20 01/29/21 Shama Hines MD [address] [facility] [address] [place] [address] Consulting Physician Pain Management 01/19/21 Artis Grewal MD [address] [place] [address] Consulting Physician Rheumatology 01/30/21 Harrison Pena RN [address] [place] [address] Account Development Manager 05/30/23 09/04/23 Nafisa Gregg, JULIUS [address] [facility] [address] [place] [address] Account Development Manager 06/06/23 06/12/23 Amy Mayes NP [address] [facility] [address] [place] [address] Nurse Practitioner Cardiovascular Disease 04/20/24 Shailesh Dunn MD [address] [facility] [address] [place] [address] Consulting Physician Pulmonary Disease 04/20/24 Sangita Farrar PA [address] [place] [address] Physician Gear Repair Supervisor Rheumatology 05/15/24 Timi Cox MD [address] [facility] [phone] [place] [address] Surgeon Colon and Rectal Surgery 01/08/25 Teofilo Gongora MD [address] [phone] [place] [address] Urologist Urology 01/08/25 Allie East, DOREEN [address] [place] [address] [address] [place] [address] Account Development Manager 05/21/25 05/21/25 documented as of this encounter
--- OUTSIDE RECORDS SUMMARY | 2025-06-07 21:27 | XMS_ITS | Encounter Summary ---
Author Organization [facility] Healthcare Address [address] [place] [address] Care Team Providers Care Switch Repairer Name Role Phone Sharan Linton MD Unavailable [phone] Martha Starks MD Unavailable Shama Hines MD Unavailable Artis Grewal MD Unavailable [phone] Alee Elizondo Primary Care Provider [phone] Amy Mayes NP Unavailable [phone] Shailesh Dunn MD Unavailable Sangita Farrar Unavailable Timi Cox MD Unavailable [phone] Teofilo Gongora MD Unavailable [phone] Allie East LPN Unavailable Encounter Details Date Type Department Care Team (Late st Contact Info) Description 05/17/2025 Results Follow-Up [facility] Medical [facility] Family Medicine [address] [place] [address] Alee Elizondo PA [address] [place] [address] XR Abdomen 1 View AP [...] in a assisted (including now)? No 05/30/2024 Social Connection and [...] living in a assisted (including now)? No 05/20/2025 [facility] Utilities Answer Date Recorded [...] on file Legal Sex Female 8:04 PM ENROLLMENT CLERK Gender Identity Female 02/15/2020 6:08 PM [...] Author BP Method Automatic 05/18/2025 3:15 PM ENROLLMENT CLERK Elena Anderson * Fall Risk Interventions Question [...] on Admission Not Present 05/17/2025 5:25 PM ENROLLMENT CLERK Tanesha Wiley RN * Fall Risk Assessment [...] Eaten (%) 75 05/20/2025 12:55 P M ENROLLMENT CLERK Suni Larson Feeding Level of Assistance Able to feed self 05/20/2025 12:55 PM ENROLLMENT CLERK Suni Larson Appetite Fair 05/19/2025 12:50 PM ENROLLMENT CLERK Kendra Mahajan * BP Location Answer Date of Assessment Author Right arm 05/20/2025 10:35 AM ENROLLMENT CLERK Johan Larson * Question Answer Date of Assessment Author BP Method Automatic 05/18/2025 3:15 PM ENROLLMENT CLERK Elena Anderson * Fall Risk Interventions Question [...] Bathing Independent 05/17/2025 4:55 PM Mary Ann Lnua RN Toileting Independent 05/17/2025 4:55 PM Mary [...] 05/17/2025 4:55 PM Mary Ann Plata, JULIUS VOLCANOLOGIST Evaluation Needed 2 05/17/2025 4:55 PM Mary [...] or dysphagia diet No 05/17/2025 4:55 PM ENROLLMENT CLERK Mary Ann Waters, JULIUS Patient is in need of VOLCANOLOGIST Order: No VOLCANOLOGIST order needed from this assessment 05/17/2025 4:55 PM ENROLLMENT CLERK Mary Ann Waters, JULIUS * Hygiene Question Answer Date of Assessment Author Oral Care Lip moisturizer 05/20/2025 8:49 AM ENROLLMENT CLERK Suni Larson Hygiene Level of Assistance Independent 05/20/2025 8:49 AM ENROLLMENT CLERK Suni Larson Toileting: Assistance with Up to bathroom toilet;Back to bed 05/19/2025 9:46 AM ENROLLMENT CLERK Kendra Ye Toileting: Level of assistance Independent 05/20/2025 5:00 AM ENROLLMENT CLERK Paco Driscoll, JULIUS Reason not bathed/showered Patient/family refused bath/shower 05/20/2025 4:00 AM ENROLLMENT CLERK Naga Olson Perineal Care Alia Care;Lyles Care 05/20/2025 8:49 AM ENROLLMENT CLERK Suni Larson Linens Absorbent pad changed 05/18/2025 12:10 PM ENROLLMENT CLERK Elena Lee Bath Bathed/showered with chlorhexidine (CHG) 05/20/2025 8:49 AM ENROLLMENT CLERK Suni Larson documented as of this encounter Mental Status * Question Answer Entry Date Author Neuro (WDL) WDL 05/20/2025 7:30 AM ENROLLMENT CLERK Leola Butterfield, JULIUS documented in this encounter Plan of Treatment Not on file documented as of this encounter Visit Diagnoses Not on filedocumented in this encounter Care Teams Switch Repairer Relationship Specialty Start Date End Date Alee Elizondo PA [address] [address] PCP - General Internal Medicine 07/05/23 Sharan Linton MD Referring Physician Gastroenterology 10/31/18 Martha Starks MD Consulting Physician Cardiology 12/24/20 Shama Hnies MD [address] [facility] [address] [place] [address] Consulting Physician Pain Management 01/19/21 Artis Grewal MD [address] [place] [address] Consulting Physician Rheumatology 01/30/21 Amy Mayes NP [address] [facility] [address] [place] [address] Nurse Practitioner Cardiovascular Disease 04/20/24 Shailesh Dunn MD [address] [facility] [address] [address] Consulting Physician Pulmonary Disease 04/20/24 Sangita Farrar PA [address] [place] [address] Physician Load Out Supervisor Rheumatology 05/15/24 Timi Cox MD [phone] [place] [address] Surgeon Colon and Rectal Surgery 01/08/25 Teofilo Gongora MD [address] [phone] [place] [address] Urologist Urology 01/08/25 Allie East, RN BONE MARROW TRANSPLANT [address] [facility] [address] [place] [address] Shampoo Technician 05/21/25 05/21/25 documented as of this encounter
--- OUTSIDE RECORDS SUMMARY | 2025-06-07 21:27 | XMS_ITS | Encounter Summary ---
Author Organization [facility] Facility Care Team Providers Care Hobber Name Role Phone Alee Elizondo Primary Care Provider + [phone] Sharan Linton MD Unavailable +[phone] Taisha Gomez MD Unavailable +[phone] Parag Soto MD Unavailable +[phone] RaziaMartha singh MD Unavailable +[phone] Puneet Uribe MD Unavailable +[phone] Shama Hines MD Unavailable Artis Grewal MD Unavailable +[phone] Harrison Pena RN Unavailable +[phone] Nafisa Gregg RN Unavailable +[phone] Tho Kelsey MD Primary Care Provider +[phone] Alee Elizondo Primary Care Provider + [phone] Amy Mayes NP Unavailable +[phone] Shailesh Dunn MD Unavailable +[phone] Sangita Farrra Unavailable +[phone] Timi Cox MD Unavailable [phone] Teofilo Gongora MD Unavailable +[phone] Allie East LPN Unavailable Encounter Details Date Type Department Care Team (Latest Contact Info) Description 04/19/2016 Orders Only MMG CLINCONV Provider, MD Tania [facility] [place] [address] Social History Tobacco Use Types Packs/Day Years Used Date Smoking Tobacco: Never Alcohol Use Standard Drinks/Week Comments No 0 (1 standard drink = 0.6 oz pur e alcohol) Comments Unknown Sex and Gender Information Value Date Recorded Sex Assigned at Not on file Legal Sex Female 8:04 PM STAFFING AND SCHEDULING COORDINATOR Gender Identity Female 02/15/2020 6:08 PM [...] COVID: Suspected 08/13/2021 08/14/2021 08/14/2021 3:06 AM STAFFING AND SCHEDULING COORDINATOR COVID: Suspected 08/14/2021 08/14/2021 08/15/2021 3:05 AM STAFFING AND SCHEDULING COORDINATOR COVID: Suspected 08/14/2021 08/14/2021 08/15/2021 6:25 AM STAFFING AND SCHEDULING COORDINATOR COVID: Suspected 06/02/2023 06/02/2023 06/02/2023 7:25 PM STAFFING AND SCHEDULING COORDINATOR COVID: Suspected 07/26/2023 07/26/2023 07/26/2023 3:10 PM STAFFING AND SCHEDULING COORDINATOR COVID: Suspected 09/25/2024 09/25/2024 09/25/2024 11:03 AM CDT Influenza, adult 09/25/2024 09/25/2024 10/02/2024 3:05 AM CDT COVID: Suspected 10/23/2024 10/23/202410/2310/23/2024 1:15 PM CDT COVID: Suspected 12/03/2024 12/03/2024 12/03/2024 10:09 PM CDT documented as of this encounter Care Teams Hobber Relationship Specialty Start Date End Date Alee Elizondo PA [address] [place] [address] PCP - General Internal Medicine 02/01/17 06/29/23 Tho Kelsey MD [address] [place] [address] [address] [place] [address] PCP - General Family Medicine 06/30/23 07/04/23 Alee Elizondo PA [address] [place] [address] PCP - General Internal Medicine 07/05/23 Sharan Linton MD [address] [place] [address] Referring Physician Gastroenterology 10/31/18 Taisha Gomez MD [address] [place] [address] Referring Physician Pulmonary Disease 10/31/18 12/23/20 Parag Soto MD [address] [place] [address] Referring Physician Rheumatology 10/31/18 12/23/20 Martha Starks MD [address] [place] [address] Consulting Physician Cardiology 12/24/20 Puneet Uribe MD [address] [facility] 110 [address] [place] [address] Consulting Physician Rheumatology 12/24/20 01/29/21 Shama Hines MD 4700 [facility] 230 [place] [address] Consulting Physician Pain Management 01/19/21 Artis Grewal MD [address] [place] [address] Consulting Physician Rheumatology 01/30/21 Harrison Pena RN [address] [place] [address] Manager Economic 05/30/23 09/04/23 Nafisa Gregg RN 660 [facility] 300 [place] [address] Manager Economic 06/06/23 06/12/23 Amy Mayes NP [address] [place] [address] 300 [place] [address] Nurse Practitioner Cardiovascular Disease 04/20/24 Shailesh Dunn MD 4600 [facility] 200 [place] [address] Consulting Physician Pulmonary Disease 04/20/24 Sangita Farrar PA [address] [place] [address] Physician Snap Shearer Rheumatology 05/15/24 Timi Cox MD [address] [facility] [phone] [place] [address] Surgeon Colon and Rectal Surgery 01/08/25 Teofilo Gongora MD [address] [facility] [phone] [place] [address] Urologist Urology 01/08/25 Allie East LPN [address] [place] [address] [address] [place] [address] Manager Economic 05/21/25 05/21/25 documented as of this encounter
--- OUTSIDE RECORDS SUMMARY | 2025-06-07 21:27 | XMS_ITS | Encounter Summary ---
Author Organization [facility] Facility Care Team Providers Care Licensing Engineer Name Role Phone Alee Elizondo Primary Care Provider + [phone] Sharan Linton MD Unavailable +[phone] Taisha Gomez MD Unavailable +[phone] Parag Soto MD Unavailable RaziaMartha singh MD Unavailable +[phone] Puneet Uribe MD Unavailable +[phone] Shama Hines MD Unavailable Artis Grewal MD Unavailable Harrison Pena RN Unavailable +[phone] Nafisa Gregg RN Unavailable +[phone] Tho Kelsey MD Primary Care Provider +[phone] Alee Elizondo Primary Care Provider + [phone] Amy Mayes NP Unavailable +[phone] Shailesh Dunn MD Unavailable +[phone] Sangita Farrar Unavailable +[phone] Timi Cox MD Unavailable [phone] Teofilo Gongora MD Unavailable +[phone] Allie East LPN Unavailable Encounter Details Date Type Department Care Team (Latest Contact Info) Description 03/24/2016 Orders Only MMG CLINCONV Provider, MD Tania [facility] [place] [address] Social History Tobacco Use Types Packs/Day Years Used Date Smoking Tobacco: Never Alcohol Use Standard Drinks/Week Comments No 0 (1 standard drink = 0.6 oz pur e alcohol) Comments Unknown Sex and Gender Information Value Date Recorded Sex Assigned at Not on file Legal Sex Female 8:04 PM SHEET METAL WELDER Gender Identity Female 02/15/2020 6:08 PM CDT [...] COVID: Suspected 08/13/2021 08/14/2021 08/14/2021 3:06 AM SHEET METAL WELDER COVID: Suspected 08/14/2021 08/14/2021 08/15/2021 3:05 AM SHEET METAL WELDER COVID: Suspected 08/14/2021 08/14/2021 08/15/2021 6:25 AM SHEET METAL WELDER COVID: Suspected 06/02/2023 06/02/2023 06/02/2023 7:25 PM SHEET METAL WELDER COVID: Suspected 07/26/2023 07/26/2023 07/26/2023 3:10 PM SHEET METAL WELDER COVID: Suspected 09/25/2024 09/25/2024 09/25/2024 11:03 AM CDT Influenza, adult 09/25/2024 09/25/2024 10/02/2024 3:05 AM CDT COVID: Suspected 10/23/2024 10/23/202410/2310/23/2024 1:15 PM CDT COVID: Suspected 12/03/2024 12/03/2024 12/03/2024 10:09 PM CDT documented as of this encounter Care Teams Licensing Engineer Relationship Specialty Start Date End Date Alee Elizondo PA [address] [place] [address] PCP - General Internal Medicine 02/01/17 06/29/23 Tho Kelsey MD [address] [place] [address] [address] [place] [address] PCP - General Family Medicine 06/30/23 07/04/23 Alee Elizondo PA [address] [place] [address] PCP - General Internal Medicine 07/05/23 Sharan Linton MD [address] [place] [address] Referring Physician Gastroenterology 10/31/18 Taisha Gomez MD [address] [place] [address] Referring Physician Pulmonary Disease 10/31/18 12/23/20 Parag Soto MD [address] [place] [address] Referring Physician Rheumatology 10/31/18 12/23/20 Martha Starks MD [address] [place] [address] Consulting Physician Cardiology 12/24/20 Puneet Uribe MD [address] [facility] 110 [address] [place] [address] Consulting Physician Rheumatology 12/24/20 01/29/21 Shama Hines MD 4700 [facility], [facility] 230 [place] [address] Consulting Physician Pain Management 01/19/21 Artis Grewal MD [address] [place] [address] Consulting Physician Rheumatology 01/30/21 Harrison Pena RN [address] [place] [address] Reflexologist 05/30/23 09/04/23 Nafisa Gregg RN 660 [facility] 300 [place] [address] Reflexologist 06/06/23 06/12/23 Amy Mayes NP [address] [place] [address] 300 [place] [address] Nurse Practitioner Cardiovascular Disease 04/20/24 Shailesh Dunn MD 4600 [facility] 200 [place] [address] Consulting Physician Pulmonary Disease 04/20/24 Sangita Farrar PA [address] [place] [address] Physician Medical Stenographer Rheumatology 05/15/24 Timi Cox MD [address] [facility] [phone] [place] [address] Surgeon Colon and Rectal Surgery 01/08/25 Teofilo Gongora MD [address] [facility] [id number] [place] [address] Urologist Urology 01/08/25 Allie East LPN [address] [place] [address] [address] [place] [address] Reflexologist 05/21/25 05/21/25 documented as of this encounter
--- OUTSIDE RECORDS SUMMARY | 2025-06-07 21:27 | XMS_ITS | Clinical Summary ---
Author Organization [facility] Address [address] [place] [address] Care Team Providers Care Marketing Production Manager Name Role Phone Darvin Harden MD Primary Care Provider [phone] Source Comments [facility],non-owned Affiliates and Associated Physician Practices is amultiple site organization consisting of ambulatory clinics and hospital sitesin [place], [place], [place] and [place]. This disclosure is being madepursuant to the Care Everywhere program and may not contain all information available regarding this patient. Last updated 18.[facility] Allergies Active Allergy Reactions Criticality Noted Date [...] fluticasone propionate (Flonase) 50 MCG/ACT nasal spray [place] 2 (two) sprays into the nose once [...] on file Legal Sex Female 4:14 PM STORE GROUP MANAGER Gender Identity Not on file Sexual Orientation [...] patient's age to complete this topic [place] [place] [address] MEDICARE [facility] MED[facility] SELF PAY NO INSURANCE Member Subscriber Plan / Payer (Ef fective for All Dates) Name:LockNohemy Member ID:Not on file Relation to Subscriber:Not on file Name:NOHEMY LOCK Subscriber ID:Not on file Address: [address] [place] [address] Payer ID:Not on file Group ID:Not on file Type:Self Pay Address: [place], [place] [employer] SELF PAY NO INSURANCE Member Subscriber Plan / Payer (Ef fective for All Dates) Name:Nohemy Lock Member ID:Not on file Relation to Subscriber:Not on file Name:NOHEMY LOCK Subscriber ID:Not on file Address: [address] [place] [address] Payer ID:Not on file Group ID:Not on file Type:Self Pay Address: [place] [facility] MEDICARE SELF PAY NO INSURANCE Member Subscriber Plan / Payer (Ef fective for All Dates) Name:Nohemy Lock Member ID:Not on file Relation to Subscriber:Not on file Name:NOHEMY LOCK Subscriber ID:Not on file Address: [address] [place] [address] [place] [address] Payer ID:Not on file Group ID:Not on file Type:Self Pay Address: [place], [place] Care Teams Marketing Production Manager Relationship Specialty Start Date End Date Darvin Harden MD [address] [facility] 209 [place] [address] PCP - General 07/11/19
--- OUTSIDE RECORDS SUMMARY | 2025-06-07 21:27 | XMS_ITS | Encounter Summary ---
Author Organization [facility] Facility Care Team Providers Care Tank Setter Helper Name Role Phone Alee Elizondo Primary Care Provider + [phone] Sharan Linton MD Unavailable [phone] Taisha Gomez MD Unavailable +[phone] Parag Soto MD Unavailable +[phone] RaziaMartha singh MD Unavailable [phone] Puneet Uribe MD Unavailable +[phone] Shama Hines MD Unavailable Artis Grewal MD Unavailable [phone] Harrison Pena RN Unavailable +[phone] Nafisa Gregg RN Unavailable +[phone] Tho Kelsey MD Primary Care Provider +[phone] Alee Elizondo Primary Care Provider + [phone] Amy Mayes NP Unavailable +[phone] Shailesh Dunn MD Unavailable +[phone] Sangita Farrar Unavailable +[phone] Timi Cox MD Unavailable [phone] Teofilo Gongora MD Unavailable +[phone] Allie East LPN Unavailable Encounter Details Date Type Department Care Team (Latest Contact Info) Description 11/04/2015 Orders Only MMG CLINCONV Provider, MD Tania [address] [place] [address] Social History Tobacco Use Types Packs/Day Years Used Date Smoking Tobacco: Never Assessed Comments Unknown Sex and Gender Information Value Date Recorded Sex Assigned at Not on file Legal Sex Female 8:04 PM SYSTEMS SOFTWARE DEVELOPER Gender Identity Female 02/15/2020 6:08 [...] COVID: Suspected 08/13/2021 08/14/2021 08/14/2021 3:06 AM SYSTEMS SOFTWARE DEVELOPER COVID: Suspected 08/14/2021 08/14/2021 08/15/2021 3:05 AM SYSTEMS SOFTWARE DEVELOPER COVID: Suspected 08/14/2021 08/14/2021 08/15/2021 6:25 AM SYSTEMS SOFTWARE DEVELOPER COVID: Suspected 06/02/2023 06/02/2023 06/02/2023 7:25 PM SYSTEMS SOFTWARE DEVELOPER COVID: Suspected 07/26/2023 07/26/2023 07/26/2023 3:10 PM SYSTEMS SOFTWARE DEVELOPER COVID: Suspected 09/25/2024 09/25/2024 09/25/2024 11:03 AM CDT Influenza, adult 09/25/2024 09/25/2024 10/02/2024 3:05 AM CDT COVID: Suspected 10/23/2024 10/23/2024 10/23/2024 1:15 PM CDT COVID: Suspected 12/03/2024 12/03/2024 12/03/2024 10:09 PM CDT documented as of this encounter Care Teams Tank Setter Helper Relationship Specialty Start Date End Date Alee Elizondo PA [address] [place] [address] PCP - General Internal Medicine 02/01/17 06/29/23 Tho Kelsey MD [address] [place] [address] [address] [place] [address] PCP - General Family Medicine 06/30/23 07/04/23 Alee Elizondo PA [address] [place] [address] PCP - General Internal Medicine 07/05/23 Sharan Linton MD [address] [place] [address] Referring Physician Gastroenterology 10/31/18 Taisha Gomez MD [address] [facility] [address] [place], [place] [address] Referring Physician Pulmonary Disease 10/31/18 12/23/20 Parag Soto MD [address] [place] [address] Referring Physician Rheumatology 10/31/18 12/23/20 Martha Starks MD [address] [place] [address] Consulting Physician Cardiology 12/24/20 Puneet Uribe MD [address] [place] [address] Consulting Physician Rheumatology 12/24/20 01/29/21 Shama Hines MD 4700 [facility], [facility] 230 [place] [address] Consulting Physician Pain Management 01/19/21 Artis Grewal MD [address] [place] [address] Consulting Physician Rheumatology 01/30/21 Harrison Pena RN [address] [place] [address] Automated Logistics Specialist 05/30/23 09/04/23 Nafisa Gregg RN [address] [place] [address] 300 [place] [address] Automated Logistics Specialist 06/06/23 06/12/23 Amy Mayes NP [address] [place] [address] 300 [place] [address] Nurse Practitioner Cardiovascular Disease 04/20/24 Shailesh Dunn MD 4600 [facility] 200 [place] [address] Consulting Physician Pulmonary Disease 04/20/24 Sangita Farrar PA [address] [place] [address] Physician Rehab Consultant Rheumatology 05/15/24 Timi Cox MD [address] [facility] [phone] [place] [address] Surgeon Colon and Rectal Surgery 01/08/25 Teofilo Gongora MD [address] [facility] [id number] [place] [address] Urologist Urology 01/08/25 Allie East, DOREEN [address] [place] [address] [address] [place] [address] Automated Logistics Specialist 05/21/25 05/21/25 documented as of this encounter
--- OUTSIDE RECORDS SUMMARY | 2025-06-07 21:27 | XMS_ITS | Encounter Summary ---
Author Organization [facility] Healthcare Address [address] [place] [address] Care Team Providers Care Cold Type Artist Name Role Phone Sharan Linton MD Unavailable [phone] Martha Starks MD Unavailable [phone] Shama Hines MD Unavailable Artis Grewal MD Unavailable [phone] Alee Elizondo Primary Care Provider +[phone] Amy Mayes NP Unavailable +[phone] Shailesh Dunn MD Unavailable [phone] Sangita Farrar Unavailable Timi Cox MD Unavailable [phone] Teofilo Gongora MD Unavailable [phone] Allie East LPN Unavailable [phone] Encounter Details Date Type Department Care Team (Late st Contact Info) Description 11/08/2024 Imaging Exam [facility] Medical Group Family Medicine [address] [place] [address] Alee Elizondo PA [address] [facility] [address] [place] [address] Social History Tobacco Use Types Packs/Day Years Used Date Smoking Tobacco: Never Smokeless Tobacco: Never Comments:Never used Alcohol Use Standard Drinks/Week Comments No 0 (1 standard drink = 0.6 oz pur e alcohol) [facility] Utilities Answer Date Recorded In [...] any clubs o r organizations such as sikhism groups, unions, fraternal or athletic groups, or [...] on file Legal Sex Female 8:04 PM CONVEYOR OPERATOR Gender Identity Female 02/15/2020 6:08 PM CDT Sexual Orientation Not on file documented as of this encounter Plan of Treatment Not on file documented as of this encounter Visit Diagnoses Not on filedocumented in this encounter Additional Health Concerns Infection Onset Date Last Indicated Resolved Time COVID: Suspected 12/03/2024 12/03/2024 12/03/2024 10:09 PM CDT documented as of this encounter Care Teams Cold Type Artist Relationship Specialty Start Date End Date Alee Elizondo PA [address] [place] [address] PCP - General Internal Medicine 07/05/23 Sharan Linton MD Referring Physician Gastroenterology 10/31/18 Martha Starks MD Consulting Physician Cardiology 12/24/20 Shama Hines MD 4700 [facility] [address] Consulting Physician Pain Management 01/19/21 Artis Grewal MD [address] [place] [address] Consulting Physician Rheumatology 01/30/21 Amy Mayes NP [address] [place] [address] Nurse Practitioner Cardiovascular Disease 04/20/24 Shailesh Dunn MD [address] [address] Consulting Physician Pulmonary Disease 04/20/24 Sangita Farrar PA [address] [place] [address] Physician Principal Research Economist Rheumatology 05/15/24 Timi Cox MD [address] [facility] [phone] [place] [address] Surgeon Colon and Rectal Surgery 01/08/25 Teofilo Gongora MD [address] [facility] [phone] [place] [address] Urologist Urology 01/08/25 Allie East LPN [address] [place] [address] [address] [place] [address] Marketing Engineer 05/21/25 05/21/25 documented as of this encounter
--- OUTSIDE RECORDS SUMMARY | 2025-06-07 21:27 | XMS_ITS | Encounter Summary ---
Author Organization [facility] Facility Care Team Providers Care Support Team Member Name Role Phone Alee Elizondo Primary Care Provider + [phone] Sharan Linton MD Unavailable [phone] Taisha Gomez MD Unavailable +[phone] Parag Soto MD Unavailable +[phone] RaziaMartha singh MD Unavailable [phone] Puneet Uribe MD Unavailable +[phone] Shama Hines MD Unavailable Artis Grewal MD Unavailable +[phone] Harrison Pena RN Unavailable +[phone] Nafisa Gregg RN Unavailable +[phone] Tho Kelsey MD Primary Care Provider +[phone] Alee Elizondo Primary Care Provider + [phone] Amy Mayes NP Unavailable +[phone] Shailesh Dunn MD Unavailable [phone] Sangita Farrar Unavailable +[phone] Timi Cox MD Unavailable [phone] Teofilo Gongora MD Unavailable +[phone] Allie East LPN Unavailable Encounter Details Date Type Department Care Team (Latest Contact Info) Description 09/29/2015 Orders Only MMG CLINCONV Provider, MD Tania [address] [place] [address] Social History Tobacco Use Types Packs/Day Years Used Date Smoking Tobacco: Never Assessed Comments Unknown Sex and Gender Information Value Date Recorded Sex Assigned at Not on file Legal Sex Female 8:04 PM JAVA SPRING DEVELOPER Gender Identity Female 02/15/2020 6:08 PM [...] COVID: Suspected 08/13/2021 08/14/2021 08/14/2021 3:06 AM JAVA SPRING DEVELOPER COVID: Suspected 08/14/2021 08/14/2021 08/15/2021 3:05 AM JAVA SPRING DEVELOPER COVID: Suspected 08/14/2021 08/14/2021 08/15/2021 6:25 AM JAVA SPRING DEVELOPER COVID: Suspected 06/02/2023 06/02/2023 06/02/2023 7:25 PM JAVA SPRING DEVELOPER COVID: Suspected 07/26/2023 07/26/2023 07/26/2023 3:10 PM JAVA SPRING DEVELOPER COVID: Suspected 09/25/2024 09/25/2024 09/25/2024 11:03 AM CDT Influenza, adult 09/25/2024 09/25/2024 10/02/2024 3:05 AM CDT COVID: Suspected 10/23/2024 10/23/2024 10/23/2024 1:15 PM CDT COVID: Suspected 12/03/2024 12/03/2024 12/03/2024 10:09 PM CDT documented as of this encounter Care Teams Support Team Member Relationship Specialty Start Date End Date Alee Elizondo PA [address] [place] [address] PCP - General Internal Medicine 02/01/17 06/29/23 Tho Kelsey MD [address] [place] [address] [address] [place] [address] PCP - General Family Medicine 06/30/23 07/04/23 Alee Elizondo PA [address] [place] [address] PCP - General Internal Medicine 07/05/23 Sharan Linton MD [address] [place] [address] Referring Physician Gastroenterology 10/31/18 Taisha Gomez MD [address] [facility] [address] [place], [place] [address] Referring Physician Pulmonary Disease 10/31/18 12/23/20 Parag Soto MD [address] [place] [address] Referring Physician Rheumatology 10/31/18 12/23/20 Martha Starks MD [address] [place] [address] Consulting Physician Cardiology 12/24/20 Puneet Uribe MD [address] [place] [address] Consulting Physician Rheumatology 12/24/20 01/29/21 Shama Hines MD 4700 [facility] 230 [place] [address] Consulting Physician Pain Management 01/19/21 Artis Grewal MD [address] [place] [address] Consulting Physician Rheumatology 01/30/21 Harrison Pena RN [address] [place] [address] Grain Farmworker 05/30/23 09/04/23 Nafisa Gregg RN [address] [place] [address] 300 [place] [address] Grain Farmworker 06/06/23 06/12/23 Amy Mayes NP [address] [place] [address] 300 [place] [address] Nurse Practitioner Cardiovascular Disease 04/20/24 Shailesh Dunn MD 4600 [facility] 200 [place] [address] Consulting Physician Pulmonary Disease 04/20/24 Sangita Farrar PA [address] [place] [address] Physician R D Engineer Rheumatology 05/15/24 Timi Cox MD [address] [facility] [phone] [place] [address] Surgeon Colon and Rectal Surgery 01/08/25 Teofilo Gongora MD [address] [facility] [id number] [place] [address] Urologist Urology 01/08/25 Allie East, DOREEN [address] [place] [address] [address] [place] [address] Grain Farmworker 05/21/25 05/21/25 documented as of this encounter
--- OUTSIDE RECORDS SUMMARY | 2025-06-07 21:27 | XMS_ITS | Encounter Summary ---
Author Organization [facility] Healthcare Address [address] [place] [address] Care Team Providers Care Medication Reconciliation Technician Name Role Phone Sharan Linton MD Unavailable [phone] Martha Starks MD Unavailable [phone] Shama Hines MD Unavailable Artis Grewal MD Unavailable [phone] Alee Elizondo Primary Care Provider [phone] Amy Mayes NP Unavailable [phone] Shailesh Dunn MD Unavailable [phone] Sangita Farrar Unavailable Timi Cox MD Unavailable [phone] Teofilo Gongora MD Unavailable + [phone] Allie East LPN Unavailable [phone] Encounter Details Date Type Department Care Team (Late st Contact Info) Description 10/13/2024 Orders Only [facility] Health Information Management [address] [place] [address] Scanning, Provider Social History Tobacco Use Types Packs/Day Years Used Date Smoking Tobacco: Never Smokeless Tobacco: Never Comments:Never used Alcohol Use Standard Drinks/Week Comments No 0 (1 standard drink = 0.6 oz pur e alcohol) [facility] Utilities Answer Date Recorded In the past 12 months has th e electric, gas, oil, or water [employer] threatened to shut off services in your [...] you attend chur ch or sikh services? 1 to 4 times per year [...] in the past 12 m [facility], were you homeless or living in [...] on file Legal Sex Female 8:04 PM COIL TIER Gender Identity Female 02/15/2020 6:08 PM CDT [...] documented as of this encounter Care Teams Medication Reconciliation Technician Relationship Specialty Start Date End Date Alee Elizondo PA [address] [facility] 500 [place] [address] PCP - General Internal Medicine 07/05/23 Sharan Linton MD Referring Physician Gastroenterology 10/31/18 Martha Starks MD Consulting Physician Cardiology 12/24/20 Shama Hines MD [address] [facility] [address]IN [address] [address] Consulting Physician Pain Management 01/19/21 Artis Grewal MD [address] [place] [address] Consulting Physician Rheumatology 01/30/21 Amy Mayes NP [address] [facility] 500 [place] [address] Nurse Practitioner Cardiovascular Disease 04/20/24 Shailesh Dunn MD [address] [address] Consulting Physician Pulmonary Disease 04/20/24 Sangita aFrrar PA [address] [place] [address] Physician Assistant Community Director Rheumatology 05/15/24 Timi Cox MD [address] [id number] [place] [address] Surgeon Colon and Rectal Surgery 01/08/25 Teofilo Gongora MD [address] [id number] [place] [address] Urologist Urology 01/08/25 Allie East LPN [address] [place] [address] [address] [place] [address] Social And Political Studies Professor 05/21/25 05/21/25 documented as of this encounter
--- OUTSIDE RECORDS SUMMARY | 2025-06-07 21:28 | XMS_ITS | Encounter Summary ---
Author Organization [facility] Healthcare Address [address] [place] [address] Care Team Providers Care Ticketer Name Role Phone Sharan Linton MD Unavailable [phone] Martha Starks MD Unavailable [phone] Shama Hines MD Unavailable Artis Grewal MD Unavailable [phone] Alee Elizondo Primary Care Provider [phone] Amy Mayes NP Unavailable Shailesh Dunn MD Unavailable [phone] Sangita Farrar Unavailable Timi Cox MD Unavailable [phone] Teofilo Gongora MD Unavailable [phone] Allie East LPN Unavailable Reason for Visit * Reason Onset Date Comments JUSTIN Questions 05/20/2025 Encounter Details Date Type Department Care Team (Late st Contact Info) Description 05/20/2025 Telephone [facility] Medical Group Family Medicine [address] [place] [address] Alee Elizondo PA [address] [facility] [facility] [address] [place] [place] [address] JUSTIN Questions Social History Tobacco [...] in the past 12 m [facility], were you homeless or living in a alf (including now)? No 05/30/2024 Social Connection and [...] in the past 12 m [facility], were you homeless or living in a alf (including now)? No 05/20/[address] [facility] Utilities Answer Date Recorded In the [...] Legal Sex Female 8:04 PM VICE PRESIDENT [employer]ION [employer]TEGRATION Gender Identity Female 02/15/2020 6:08 PM CDT [...] RN Mental Status 0 05/20/2025 7:30 AM VICE PRESIDENT [employer] Leola Cowan RN Eckert Fall Risk Score [...] Assessment Author Right arm 05/20/2025 10:35 AM VICE PRESIDENT [employer] Johan Larson * MAP (mmHg) Answer Date [...] Skin Integrity Redness 05/20/2025 7:30 AM Leola Rivera RN Skin Turgor Non-tenting 05/20/2025 7:30 AM [...] For Exception(s) independent 05/20/2025 7:30 A M VICE PRESIDENT [employer] Leola Multani RN * Hygiene Question Answer Date of Assessment Author Oral Care Lip moisturizer 05/20/2025 8:49 AM VICE PRESIDENT [employer] Suni Larson Hygiene Level of Assistance Independent 05/20/2025 8:49 AM VICE PRESIDENT [employer] Suni Larson Toileting: Level of assistance Independent 05/20/2025 5:00 AM VICE PRESIDENT [employer] Paco Driscoll RN Reason not bathed/showered Patient/family refused bath/shower 05/20/2025 4:00 AM VICE PRESIDENT [employer] Naga Olson Perineal Care Alia Care;Lyles Care 05/20/2025 8:49 AM VICE PRESIDENT [employer]TE[employer] Suni Larson Bath Bathed/showered with chlorhexidine (CHG) 05/20/2025 8:49 AM VICE PRESIDENT [employer] Suni Larson documented as of this encounter Mental Status * Question Answer Entry Date Author Neuro (WDL) WDL 05/20/2025 7:30 AM VICE PRESIDENT [employer] Leola Butterfield RN documented in this encounter Miscellaneous Notes * Telephone Encounter - Taisha Koch MA - 05/20/2025 2:41 PM CST JUSTIN Questions (Message from [facility] [place] [place] Access Center-Brand Attendant): Has patient been discharged at time of call? Yes Date Admitted: 05/17/25 Date Discharged: 05/20/25 Facility Admitted To: [facility] Reason for Stay? Kidney failure If prescribed [...] message need to be routed? Yes-FYI Only PRESIDENT [employer]TE[employer] documented in this encounter Plan of Treatment Not on file documented as of this encounter Visit Diagnoses Not on filedocumented in this encounter Care Teams Ticketer Relationship Specialty Start Date End Date Alee Elizondo PA [address] [place] [place] [address] PCP - General Internal Medicine 07/05/23 Sharan Linton MD Referring Physician Gastroenterology 10/31/18 Martha Starks MD Consulting Physician Cardiology 12/24/20 Shama Hines MD 47[address] [facility] [address] [address] Consulting Physician Pain Management 01/19/21 Artis Grewal MD [address] [place] [address] Consulting Physician Rheumatology 01/30/21 Amy Mayes NP [address] [place] [address] Nurse Practitioner Cardiovascular Disease 04/20/24 Shailesh Dunn MD [address] [address] Consulting Physician Pulmonary Disease 04/20/24 Sangita Farrar PA [address] [place] [address] Physician Pin Attacher Rheumatology 05/15/24 Timi Cox MD [address] [phone] [place] [address] Surgeon Colon and Rectal Surgery 01/08/25 Teofilo Gongora MD [address] [phone] [place] [address] Urologist Urology 01/08/25 Allie East, DOREEN [address] [place] [address] Chrome Polisher 05/21/25 05/21/25 documented as of this encounter
--- OUTSIDE RECORDS SUMMARY | 2025-06-07 21:28 | XMS_ITS | Encounter Summary ---
Author Organization [facility] Healthcare Address [address] [place] [address] Care Team Providers Care Planning Aide Name Role Phone Sharan Linton MD Unavailable [phone] Martha Starks MD Unavailable [phone] Shama Hines MD Unavailable Artis Grewal MD Unavailable [phone] Alee Elizondo Primary Care Provider [phone] Amy Mayes NP Unavailable [phone] Shailesh Dunn MD Unavailable [phone] Sangita Farrar Unavailable [phone] Timi Cox MD Unavailable [phone] Teofilo Gongora MD Unavailable + [phone] Encounter Details Date Type Department Care Team (Latest Contact Info) Description 05/27/2025 Results Follow-Up [facility] Medical Group Family Medicine [address] [place] [address] Alee Elizondo PA [address] [facility] [email or web address] [address] [place] [place] [address] POCT urinalysis dipstick, Urine culture [...] a long term (including now)? No 05/30/2024 Social Connection and [...] in a long term (including now)? 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 [address] [place] [address] Consulting Physician Pain Management 01/19/21 Artis Grewal MD [address] [place] [address] Consulting Physician Rheumatology 01/30/21 Amy Mayes NP [address] [facility] 500 [place] [address] Nurse Practitioner Cardiovascular Disease 04/20/24 Shailesh Dunn MD [address] [address] Consulting Physician Pulmonary Disease 04/20/24 Sangita Farrar PA [address] [place] [address] Physician Company Tanker Truck Driver Rheumatology 05/15/24 Timi Cox MD [address] [phone] [place] [address] Surgeon Colon and Rectal Surgery 01/08/25 Teofilo Gongora MD [address] [id number] [place] [address] Urologist Urology 01/08/25 documented as of this encounter
--- OUTSIDE RECORDS SUMMARY | 2025-06-07 21:28 | XMS_ITS | Clinical Summary ---
Author Organization [facility] Address [address] [place] [address] Care Team Providers Care Gateman Name Role Phone Unavailable Primary Care Provider [...]
--- OUTSIDE RECORDS SUMMARY | 2025-06-07 21:28 | XMS_ITS | Encounter Summary ---
Author Organization [facility] Healthcare Address [address] [place] [address] Care Team Providers Care Glass Ribbon 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 Assistant Name Role Phone Sharan Linton MD Unavailable [phone] Martha Starks MD Unavailable [phone] Shama Hines MD Unavailable Artis Grewal MD Unavailable [phone] Alee Elizondo Primary Care Provider [phone] Amy Mayes NP Unavailable [phone] Shailesh Dunn MD Unavailable [phone] Sangita Farrar Unavailable Timi Cox MD Unavailable [phone] Teofilo Gongora MD Unavailable [phone] Allie East LPN Unavailable [phone] Reason for Visit * Reason Onset Date Comments Back Pain 05/17/2025 Abdominal Pain 05/17/2025 Urinary Retention 05/17/2025 Encounter Details Date Type Department Care Team (Late st Contact Info) Description 05/17/2025 Nurse Triage [facility] Medical Group Family Medicine [address] [place] [address] Alee Elizondo PA [address] [address] [place] [address] Social History Tobacco Use Types [...] any time in the past 12 m [facility], were you homeless or living [...] any time in the past 12 m [facility], were you homeless or living in a mcfp (including now)? No 05/20/2025 [facility] Utilities Answer Date Recorded In the past [...] on file Legal Sex Female 8:04 PM FORGE SHOP SUPERVISOR Gender Identity Female 02/15/2020 6:08 PM [...] Author BP Method Automatic 05/18/2025 3:15 PM FORGE SHOP SUPERVISOR Elena Anderson * Fall Risk Interventions Question [...] on Admission Not Present 05/17/2025 5:25 PM FORGE SHOP SUPERVISOR Tanesha Wiley RN * Fall Risk Assessment [...] Eaten (%) 75 05/20/2025 12:55 P M FORGE SHOP SUPERVISOR Suni Larson Feeding Level of Assistance Able to feed self 05/20/2025 12:55 PM FORGE SHOP SUPERVISOR Suni Larson Appetite Fair 05/19/2025 12:50 PM FORGE SHOP SUPERVISOR Kendra Mahajan * BP Location Answer Date of Assessment Author Right arm 05/20/2025 10:35 AM FORGE SHOP SUPERVISOR Johan Larson * Question Answer Date of Assessment Author BP Method Automatic 05/18/2025 3:15 PM FORGE SHOP SUPERVISOR Elena Anderson * Fall Risk Interventions Question [...] 05/17/2025 4:55 PM Mary Ann Plata RN THERAPEUTIC CONSULTANT Evaluation Needed 2 05/17/2025 4:55 PM Mary [...] to comprehend conversation No 05/17/2025 4:55 PM FORGE SHOP SUPERVISOR Mary Ann Waters, JULIUS Currently, does patient require thickened liquids or dysphagia diet No 05/17/2025 4:55 PM FORGE SHOP SUPERVISOR Mary Ann Waters, RN Patient is in need of THERAPEUTIC CONSULTANT Order: No THERAPEUTIC CONSULTANT order needed from this assessment 05/17/2025 4:55 PM FORGE SHOP SUPERVISOR Mary Ann Watesr, JULIUS * Hygiene Question Answer Date of Assessment Author Oral Care Lip moisturizer 05/20/2025 8:49 AM FORGE SHOP SUPERVISOR Suni Larson Hygiene Level of Assistance Independent 05/20/2025 8:49 AM FORGE SHOP SUPERVISOR Suni Larson Toileting: Assistance with Up to bathroom toilet;Back to bed 05/19/2025 9:46 AM FORGE SHOP SUPERVISOR Kendra Ye Toileting: Level of assistance Independent 05/20/2025 5:00 AM FORGE SHOP SUPERVISOR Paco Driscoll RN Reason not bathed/showered Patient/family refused bath/shower 05/20/2025 4:00 AM FORGE SHOP SUPERVISOR Naga Olson Perineal Care Alia Care;Lyles Care 05/20/2025 8:49 AM FORGE SHOP SUPERVISOR Suni Larson Linens Absorbent pad changed 05/18/2025 12:10 PM FORGE SHOP SUPERVISOR Elena Lee Bath Bathed/showered with chlorhexidine (CHG) 05/20/2025 8:49 AM FORGE SHOP SUPERVISOR Suni Larson documented as of this encounter Mental Status * Question Answer Entry Date Author Neuro (WDL) WDL 05/20/2025 7:30 AM FORGE SHOP SUPERVISOR Leola Butterfield RN documented in this encounter Miscellaneous Notes * Telephone Encounter - Kassandra Artis RN - 05/17/2025 10:54 AM FORGE SHOP SUPERVISOR Reason for Conversation Back Pain, Abdominal Pain, [...] on file. Protocols Used Abdominal Pain - [id number] E SHOP SUPERVISOR * Telephone Encounter - Kassandra Artis RN - 05/17/2025 10:40 AM FORGE SHOP SUPERVISOR Regarding: Severe pain lower abd and back with Vomiting ----- Message from Jennifer Adarsh sent at 05/17/2025 10:39 AM FORGE SHOP SUPERVISOR ----- Symptom Based Call Chief Complaint(s): Severe [...] message need to be routed? Yes-Action Needed E SHOP SUPERVISOR documented in this encounter Plan of Treatment Not on file documented as of this encounter Visit Diagnoses Not on filedocumented in this encounter Care Teams Glass Ribbon 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 Assistant Relationship Specialty Start Date End Date Alee Elizondo PA [address] [facility] [address] [place] [address] PCP - General Internal Medicine 07/05/23 Sharan Linton MD Referring Physician Gastroenterology 10/31/18 Martha Starks MD Consulting Physician Cardiology 12/24/20 Shama Hines MD 47[address] [facility] [address] [place] [address] Consulting Physician Pain Management 01/19/21 Artis Grewal MD [address] [place] [address] Consulting Physician Rheumatology 01/30/21 [place] [address] [place] [address] [address] [place] [address] Nurse Practitioner Cardiovascular Disease 04/20/24 Shailesh Dunn MD [address] [address] Consulting Physician Pulmonary Disease 04/20/24 Sangita Farrar PA [address] [place] [address] Physician Product Safety Technician Rheumatology 05/15/24 Timi Cox MD [address] [phone] [place] [address] Surgeon Colon and Rectal Surgery 01/08/25 Teofilo Gongora MD [address] [id number] [place] [address] Urologist Urology 01/08/25 Allie East, IMPORT/EXPORT SPECIALIST 660 [facility] 300 [place] [address] Log Roper 05/21/25 05/21/25 documented as of this encounter
--- OUTSIDE RECORDS SUMMARY | 2025-06-07 21:28 | XMS_ITS | Encounter Summary ---
Author Organization [facility] Healthcare Address [address] [place] [address] Care Team Providers Care Pest Control Chemical Technician Name Role Phone Sharan Linton MD Unavailable [phone] Martha Starks MD Unavailable [phone] Shama Hines MD Unavailable Artis Grewal MD Unavailable [phone] Alee Elizondo Primary Care Provider [phone] Amy Mayes NP Unavailable [phone] Shailesh Dunn MD Unavailable [phone] Sangita Farrar Unavailable [phone] Timi Cox MD Unavailable [phone] Teofilo Gongora MD Unavailable [phone] Encounter Details Date Type Department Care Team (Late st Contact Info) Description 06/06/2025 Orders Only [facility] Medical Group Family Medicine [address] [place] [address] Alee Elizondo PA [address] [place] [address] Urinary tract infection associated with [...] in a intermediate (including now)? No 05/30/2024 Social Connection and [...] living in a intermediate (including now)? No 05/20/2025 [facility] [...] file Legal Sex Female 8:04 PM SUPERVISOR HYDROCHLORIC AREA Gender Identity Female 02/15/2020 6:08 PM CDT Sexual Orientation Not on file documented as of this encounter Plan of Treatment Not on file documented as of this encounter Visit Diagnoses Diagnosis Urinary tract infection associated with catheterization of urinary tract, unspecified indwelling urinary catheter type, sequela- Primary documented in this encounter Care Teams Pest Control Chemical Technician Relationship Specialty Start Date End Date Alee Elizondo PA [address] [facility] 500 [place] [address] PCP - General Internal Medicine 07/05/23 Sharan Linton MD Referring Physician Gastroenterology 10/31/18 Martha Starks MD Consulting Physician Cardiology 12/24/20 Shama Hines MD 4700 [facility] [address] [place] [address] Consulting Physician Pain Management 01/19/21 Artis Grewal MD [address] [place] [address] Consulting Physician Rheumatology 01/30/21 Amy Mayes NP 10[address] [facility] 500 [place] [address] Nurse Practitioner Cardiovascular Disease 04/20/24 Shailesh Dunn MD [address] [facility] [address] [address] Consulting Physician Pulmonary Disease 04/20/24 Sangita Farrar PA [address] [place] [address] Physician Truck Shop Supervisor Rheumatology 05/15/24 Timi Cox MD [address] [phone] [place] [address] Surgeon Colon and Rectal Surgery 01/08/25 Teofilo Gongora MD [address] [phone] [place] [address] Urologist Urology 01/08/25 documented as of this encounter
--- OUTSIDE RECORDS SUMMARY | 2025-06-07 21:28 | XMS_ITS | Encounter Summary ---
Author Organization [facility] Healthcare Address [address] [place] [address] Care Team Providers Care Case Repairer Name Role Phone Sharan Linton MD Unavailable [phone] Martha Starks MD Unavailable [phone] Shama Hines MD Unavailable Artis Grewal MD Unavailable [phone] Alee Elizondo Primary Care Provider [phone] Amy Mayes NP Unavailable [phone] Shailesh Dunn MD Unavailable [phone] Sangita Farrar Unavailable [phone] Timi Cox MD Unavailable [phone] Teofilo Gongora MD Unavailable + [phone] Reason for Visit * Reason Onset Date Comments Symptom Based Call 06/06/2025 Medical Question/Miscellaneous 06/06/2025 Encounter Details Date Type Department Care Team (Late st Contact Info) Description 06/06/2025 Telephone [facility] Medical Group Family Medicine [address] [place] [address] Alee Elizondo PA [address] [address] [place] [address] Symptom Based Call; Medical Question/Miscellaneous [...] in a retirement (including now)? No 05/30/2024 Social Connection and [...] living in a retirement (including now)? No 05/20/2025 [facility] Utilities Answer Date Recorded In the [...] on file Legal Sex Female 8:04 PM TIRE STRIPPER Gender Identity Female 02/15/2020 6:08 PM CDT [...] message need to be routed? Yes-FYI Only STRIPPER * Telephone Encounter - Caitlyn Hua MA - 06/06/2025 7:54 AM CST Pt coming in for a nurse visit for urine STRIPPER * Telephone Encounter - Marcelino Jazminedianne Childers [...] message need to be routed? Yes-Action Needed STRIPPER documented in this encounter Plan of Treatment [...] unspecified documented in this encounter Care Teams Case Repairer Relationship Specialty Start Date End Date Alee Elizondo PA [address] [place] [address] PCP - General Internal Medicine 07/05/23 Sharan Linton MD Referring Physician Gastroenterology 10/31/18 Martha Starks MD Consulting Physician Cardiology 12/24/20 Shama Hines MD [address] [facility] [address] Consulting Physician Pain Management 01/19/21 Artis Grewal MD [address] [place] [address] Consulting Physician Rheumatology 01/30/21 Amy Mayes NP [address] [address] Nurse Practitioner Cardiovascular Disease 04/20/24 Shailesh Dunn MD [address] [address] Consulting Physician Pulmonary Disease 04/20/24 Sangita Farrar PA [address] [place] [address] Physician Rehabilitation Construction Specialist Rheumatology 05/15/24 Timi Cox MD [address] [phone] [place] [address] Surgeon Colon and Rectal Surgery 01/08/25 Teofilo Gongora MD [address] [phone] [place] [address] Urologist Urology 01/08/25 documented as of this encounter
--- OUTSIDE RECORDS SUMMARY | 2025-06-07 21:29 | XMS_ITS | Encounter Summary ---
Author Organization [facility] Facility Care Team Providers Care Restoration Ecologist Name Role Phone Alee Elizondo Primary Care Provider + [phone] Sharan Linton MD Unavailable [phone] Taisha Gomez MD Unavailable +[phone] Parag Soto MD Unavailable [phone] RaziaMartha singh MD Unavailable [phone] Puneet Uribe MD Unavailable +[phone] Shama Hines MD Unavailable Artis Grewal MD Unavailable +[phone] Harrison Pena RN Unavailable +[phone] Nafisa Gregg RN Unavailable +[phone] Tho Kelsey MD Primary Care Provider [phone] Alee Elizondo Primary Care Provider + [phone] Amy Mayes NP Unavailable +[phone] Shailesh Dunn MD Unavailable [phone] Sangita Farrar Unavailable +[phone] Timi Cox MD Unavailable [phone] Teofilo Gongora MD Unavailable +[phone] Allie East LPN Unavailable Encounter Details Date Type Department Care Team (Latest Contact Info) Description 06/28/2016 Orders Only [facility] CLINCONV Provider, MD [facility] [place] [address] Social History Tobacco Use Types Packs/Day Years Used Date Smoking Tobacco: Never Alcohol Use Standard Drinks/Week Comments No 0 (1 standard drink = 0.6 oz pur e alcohol) Comments Unknown Sex and Gender Information Value Date Recorded Sex Assigned at Not on file Legal Sex Female 8:04 PM SAVINGS COUNSELOR Gender Identity Female 02/15/2020 6:08 PM CDT Sexual Orientation Not on file documented as of this encounter Plan of Treatment Not on file documented as of this encounter Procedures Procedure Name Priority Date/Time Associated Diagnosis Comments SCAN - LABS 06/29/2016 12:00 AM SAVINGS COUNSELOR documented in this encounter Results * SCAN - LABS (06/29/2016 12:00 AM SAVINGS COUNSELOR) Narrative 06/29/2016 12:00 AM SAVINGS COUNSELOR Ordered by an unspecified provider. Historical Provider Final Res ult documented in this encounter Visit Diagnoses Not on filedocumented in this encounter Additional Health Concerns Infection Onset Date Last Indicated Resolved Time COVID: Suspected 08/13/2021 08/14/2021 08/14/2021 3:06 AM SAVINGS COUNSELOR COVID: Suspected 08/14/2021 08/14/2021 08/15/2021 3:05 AM SAVINGS COUNSELOR COVID: Suspected 08/14/2021 08/14/2021 08/15/2021 6:25 AM SAVINGS COUNSELOR COVID: Suspected 06/02/2023 06/02/2023 06/02/2023 7:25 PM SAVINGS COUNSELOR COVID: Suspected 07/26/2023 07/26/2023 07/26/2023 3:10 PM SAVINGS COUNSELOR COVID: Suspected 09/25/2024 09/25/2024 09/25/2024 11:03 AM CDT Influenza, adult 09/25/2024 09/25/2024 10/02/2024 3:05 AM CDT COVID: Suspected 10/23/2024 10/23/2024 10/23/2024 1:15 PM CDT COVID: Suspected 12/03/2024 12/03/2024 12/03/2024 10:09 PM CDT documented as of this encounter Care Teams Restoration Ecologist Relationship Specialty Start Date End Date Alee Elizondo PA [address] [place] [address] PCP - General Internal Medicine 02/01/17 06/29/23 Tho Kelsey MD [address] [place] [address] [address] [place] [address] PCP - General Family Medicine 06/30/23 07/04/23 Alee Elizondo PA [address] [place] [address] PCP - General Internal Medicine 07/05/23 Sharan Linton MD [address] [place] [address] Referring Physician Gastroenterology 10/31/18 Taisha Gomez MD [address] [place], [place] [id number] Referring Physician Pulmonary Disease 10/31/18 12/23/20 Parag Soto MD [address] [place] [address] Referring Physician Rheumatology 10/31/18 12/23/20 Martha Starks MD [address] [place] [address] Consulting Physician Cardiology 12/24/20 Puneet Uribe MD [address] [facility] 110 [facility] [address] [place] [address] Consulting Physician Rheumatology 12/24/20 01/29/21 Shama Hines MD [address] [facility] [address] [place] [address] Consulting Physician Pain Management 01/19/21 Artis Grewal MD [address] [place] [address] Consulting Physician Rheumatology 01/30/21 Harrison Pena RN [address] [place] [address] Noodle Catalyst Maker 05/30/23 09/04/23 Nafisa Gregg, JULIUS [address] [place] [address] [address] [place] [address] Noodle Catalyst Maker 06/06/23 06/12/23 Amy Mayes NP [address] [place] [address] [address] [place] [address] Nurse Practitioner Cardiovascular Disease 04/20/24 Shailesh Dunn MD [address] [facility] [address] [place] [address] Consulting Physician Pulmonary Disease 04/20/24 Sangita Farrar PA [address] [place] [address] Physician Chief Librarian Circulation Department Rheumatology 05/15/24 Timi Cox MD [address] [facility] [phone] [place] [address] Surgeon Colon and Rectal Surgery 01/08/25 Teofilo Gongora MD [address] [id number] [place] [address] Urologist Urology 01/08/25 Allie East LPN [address] [place] [address] [address] [place] [address] Noodle Catalyst Maker 05/21/25 05/21/25 documented as of this encounter
--- OUTSIDE RECORDS SUMMARY | 2025-06-07 21:29 | XMS_ITS | Encounter Summary ---
Author Organization [facility] Facility Care Team Providers Care Business Center Attendant Name Role Phone Alee Elizondo Primary Care Provider + [phone] Sharan Linton MD Unavailable [phone] Taisha Gomez MD Unavailable +[phone] Parag Soto MD Unavailable [phone] RaziaMartha singh MD Unavailable [phone] Puneet Uribe MD Unavailable [phone] Shama Hines MD Unavailable Artis Grewal MD Unavailable [phone] Harrison Pena RN Unavailable +[phone] Nafisa Gregg RN Unavailable +[phone] Tho Kelsey MD Primary Care Provider [phone] Alee Elizondo Primary Care Provider + [phone] Amy Mayes NP Unavailable +[phone] Shailesh Dunn MD Unavailable [phone] Sangita Farrar Unavailable +[phone] Timi Cox MD Unavailable [phone] Teofilo Gongora MD Unavailable +[phone] Allie East LPN Unavailable Encounter Details Date Type Department Care Team (Latest Contact Info) Description 01/08/2017 Orders Only [facility] CLINCONV Provider, MD [facility] [place] [address] Social History Tobacco Use Types Packs/Day Years Used Date Smoking Tobacco: Never Alcohol Use Standard Drinks/Week Comments No 0 (1 standard drink = 0.6 oz pur e alcohol) Comments Unknown Sex and Gender Information Value Date Recorded Sex Assigned at Not on file Legal Sex Female 8:04 PM PLATE DRYING MACHINE TENDER Gender Identity Female 02/15/2020 6:08 [...] COVID: Suspected 08/13/2021 08/14/2021 08/14/2021 3:06 AM PLATE DRYING MACHINE TENDER COVID: Suspected 08/14/2021 08/14/2021 08/15/2021 3:05 AM PLATE DRYING MACHINE TENDER COVID: Suspected 08/14/2021 08/14/2021 08/15/2021 6:25 AM PLATE DRYING MACHINE TENDER COVID: Suspected 06/02/2023 06/02/2023 06/02/2023 7:25 PM PLATE DRYING MACHINE TENDER COVID: Suspected 07/26/2023 07/26/2023 07/26/2023 3:10 PM PLATE DRYING MACHINE TENDER COVID: Suspected 09/25/2024 09/25/2024 09/25/2024 11:03 AM CDT Influenza, adult 09/25/2024 09/25/2024 10/02/2024 3:05 AM CDT COVID: Suspected 10/23/2024 10/23/202410/2310/23/2024 1:15 PM CDT COVID: Suspected 12/03/2024 12/03/2024 12/03/2024 10:09 PM CDT documented as of this encounter Care Teams Business Center Attendant Relationship Specialty Start Date End Date Alee Elizondo PA [address] [place] [address] PCP - General Internal Medicine 02/01/17 06/29/23 Tho Kelsey MD [address] [place] [address] [address] [place] [address] PCP - General Family Medicine 06/30/23 07/04/23 Alee Elizondo PA [address] [place] [address] PCP - General Internal Medicine 07/05/23 Sharan Linton MD [address] [place] [address] Referring Physician Gastroenterology 10/31/18 Taisha Gomez MD [address] [place] [address] Referring Physician Pulmonary Disease 10/31/18 12/23/20 Parag Soto MD [address] [place] [address] Referring Physician Rheumatology 10/31/18 12/23/20 Martha Starks MD [address] [place] [address] Consulting Physician Cardiology 12/24/20 Puneet Uribe MD [address] [facility] [address] [place] [address] Consulting Physician Rheumatology 12/24/20 01/29/21 Shama Hines MD [address] [facility], [facility] [address] [place] [address] Consulting Physician Pain Management 01/19/21 Artis Grewal MD [address] [place] [address] Consulting Physician Rheumatology 01/30/21 Harrison Pena RN [address] [place] [address] Clipping Marker 05/30/23 09/04/23 Nafisa Gregg RN [address] [facility] 300 [place] [address] Clipping Marker 06/06/23 06/12/23 Amy Mayes NP [address] [place] [address] [address] [place] [address] Nurse Practitioner Cardiovascular Disease 04/20/24 Shailesh Dunn MD [address] [facility] 200 [place] [address] Consulting Physician Pulmonary Disease 04/20/24 Sangita Farrar PA [address] [place] [address] Physician Pole Maker Rheumatology 05/15/24 Timi Cox MD [address] [facility] [phone] [place] [address] Surgeon Colon and Rectal Surgery 01/08/25 Teofilo Gongora MD [address] [phone] [place] [address] Urologist Urology 01/08/25 Allie East LPN [address] [place] [address] [address] [place] [address] Clipping Marker 05/21/25 05/21/25 documented as of this encounter
--- OUTSIDE RECORDS SUMMARY | 2025-06-07 21:29 | XMS_ITS | Clinical Summary ---
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 Name Role Phone Sharan Linton MD Unavailable [phone] Martha Starks MD Unavailable [phone] Shama Hines MD Unavailable Artis Grewal MD Unavailable [phone] Alee Elizondo Primary Care Provider [phone] Amy Mayes NP Unavailable [phone] Shailesh Dunn MD Unavailable [phone] Sangita Farrar Unavailable [phone] Timi Cox MD Unavailable [phone] Teofilo Gongora MD Unavailable [phone] Allergies Active Allergy Reactions Criticality Noted Date [...] 05/18/2025 Assessment & Plan (05/19/2025 8:17 AM WIRELESS WATCHER): See above Left flank pain 05/17/2025 Assessment & Plan (05/19/2025 8:17 AM WIRELESS WATCHER): Likely secondary from UTI/pyelonephritis. Could be bladder spasm. she is on 5 mg q.4 hours will increase to 10 mg q.4 hours. morphine 2 mg q.4 hours. Bentyl. Patient is on oxybutynin 10 mg daily. MiraLax , senna, Dulcolax p.r.n. to avoid constipation. Patient had 2 bowel movements since admission Assessment & Plan (05/18/2025 10:54 AM WIRELESS WATCHER): Likely secondary from UTI/pyelonephritis. Could be bladder [...] admission Assessment & Plan (05/17/2025 4:05 PM WIRELESS WATCHER): Pt presents with acute left flank pain [...] 05/17/2025 Assessment & Plan (05/19/2025 8:17 AM WIRELESS WATCHER): Creatinine today is 1.20 not significantly changed yesterday. Mild NORAH secondary from dehydration and UTI. Will continue IV fluid but I will increase the rate to 75 mL/hour.. repeat labs today. Will avoid nephrotoxic medication. Assessment & Plan (05/18/2025 10:54 AM WIRELESS WATCHER): Mild NORAH secondary from dehydration and UTI. Will continue IV fluid . repeat labs today. Will avoid nephrotoxic medication. Assessment & Plan (05/17/2025 4:05 PM WIRELESS WATCHER): Pt presents with acute left flank pain [...] 12/07/2024 Assessment & Plan (05/19/2025 8:17 AM WIRELESS WATCHER): UA is suggestive of UTI. Likely pyelonephritis. [...] place. Assessment & Plan (05/18/2025 10:54 AM WIRELESS WATCHER): UA is suggestive of UTI. Patient had [...] She has had evaluation by Urology at [facility] and has been told there is [...] prescribed. Assessment & Plan (08/07/2023 7:55 PM WIRELESS WATCHER): Persistent sinusitis symptoms along with cough. Will start doxy b.i.d.. Start antihistamine (Claritin OR Zyrtec), Mucinex 12hour and Steroid nasal spray (Flonase). Push fluids. Rest. Supportive care. If sxs worsen or don\'t improve, pt is to followup in the office. Primary osteoarthritis of right knee 07/08/2023 Assessment & Plan (05/07/2024 8:56 PM WIRELESS WATCHER): Patient has arthritis in the right knee. Planning a total knee replacement with Dr. Alexus Motta on May 30 Assessment & Plan (08/03/2023 8:28 AM WIRELESS WATCHER): Continue per ortho. She is seeing some improvement but it is difficult to know if the knee is rheumatoid versus osteo versus other etiology. Will await recommendations from JACQUI Raya but definitely encouraged her to become active as soon as possible. Status post total knee replacement using cement, right 05/19/2023 Assessment & Plan (06/02/2023 4:56 PM WIRELESS WATCHER): Status post total knee replacement with Dr. Ge Sexton 04 May. She has just been released from rehab following up for her TCM visit. She appears to have an area of cellulitis at the incision site. She is also complaining of increased pain. Will check CBC CMP and inflammatory markers along with an x-ray. She plans to go to [facility] for the workup. Will follow up [...] 04/06/2023 Assessment & Plan (05/24/2025 9:25 AM WIRELESS WATCHER): Discussed the patient's BMI. The BMI is [...] provided. Assessment & Plan (06/02/2023 8:27 AM WIRELESS WATCHER): Discussed the patients BMI: The BMI is [...] 12/20/2022 Assessment & Plan (05/07/2024 8:55 PM WIRELESS WATCHER): Patient is on medication for her rheumatoid arthritis managed by [facility] Assessment & Plan (01/22/2024 8:13 PM CDT): Medications from [facility] contribute to her immunosuppressive state. Assessment & Plan (09/06/2023 9:41 AM WIRELESS WATCHER): Medications are managed by [facility] for her rheumatoid arthritis Assessment & Plan (04/06/2023 7:44 PM CDT): Managed by [facility]. Currently on Plaquenil methotrexate Orencia folic [...] She has had evaluation by Urology at [facility] and has been told there is [...] capacity. Assessment & Plan (09/06/2023 9:41 AM WIRELESS WATCHER): Continue per . She did not tolerate [...] Pate. Assessment & Plan (07/18/2022 10:20 AM WIRELESS WATCHER): CT revealed pelvic lipomatosis that is compressing [...] 02/11/2022 Assessment & Plan (09/06/2023 9:41 AM WIRELESS WATCHER): No change. Dysfunction of both eustachian tubes 02/11/2022 Myalgia, lower leg 01/11/2022 PLMD (periodic limb movement disorder) Assessment & Plan (11/06/2024 9:20 AM CDT): The patient is unaware that her limbs are moving at night when she sleeps. Assessment & Plan (08/02/2024 11:49 AM WIRELESS WATCHER): Asymptomatic Assessment & Plan (06/22/2022 10:31 AM WIRELESS WATCHER): Will continue Requip 1 mg nightly Assessment [...] bedtime. Assessment & Plan (07/13/2021 11:25 AM WIRELESS WATCHER): Due to the patient stating that she [...] hydroxychloroquine Assessment & Plan (08/23/2024 10:16 AM WIRELESS WATCHER): Hepatitis negative 06/2020 Tspot negative 06/2020 Continue routine lab monitoring Maintain routine eye exams throughout the duration of taking hydroxychloroquine Assessment & Plan (07/30/2024 8:24 AM WIRELESS WATCHER): Hepatitis negative 06/2020 Tspot negative 06/2020 Continue [...] hydroxychloroquine Assessment & Plan (09/01/2023 8:34 AM WIRELESS WATCHER): Hepatitis negative 06/2020 Tspot negative 06/2020 Continue routine lab monitoring Maintain routine eye exams throughout the duration of taking hydroxychloroquine Assessment & Plan (06/29/2023 2:19 PM WIRELESS WATCHER): Hepatitis negative 06/2020 Tspot negative 06/2020 Continue [...] hydroxychloroquine Assessment & Plan (07/14/2022 2:58 PM WIRELESS WATCHER): Hepatitis negative 06/2020 Tspot negative 06/2020 Continue routine lab monitoring Maintain routine eye exams throughout the duration of taking hydroxychloroquine Assessment & Plan (06/03/2022 9:58 AM WIRELESS WATCHER): Hepatitis negative 06/2020 Tspot negative 06/2020 Continue [...] hydroxychloroquine Assessment & Plan (09/03/2021 8:29 AM WIRELESS WATCHER): Hepatitis negative 06/2020 Tspot negative 06/2020 Continue routine lab monitoring Maintain routine eye exams throughout the duration of taking hydroxychloroquine Assessment & Plan (06/03/2021 4:17 PM WIRELESS WATCHER): Hepatitis negative 06/2020 Tspot negative 06/2020 Continue [...] hydroxychloroquine Assessment & Plan (09/02/2020 1:16 PM WIRELESS WATCHER): Hepatitis negative 06/2020 Tspot negative 06/2020 Continue routine lab monitoring Maintain routine eye exams throughout the duration of taking hydroxychloroquine Assessment & Plan (07/09/2020 12:23 PM WIRELESS WATCHER): Hepatitis negative 06/2020 Tspot negative 06/2020 Continue [...] 08/13/2019 Assessment & Plan (05/07/2024 8:54 PM WIRELESS WATCHER): Patient with chronic constipation. Has been on [...] linzess Assessment & Plan (08/13/2019 8:57 AM WIRELESS WATCHER): On Movantik with Dr. Soto Herpes zoster without complication 12/13/2018 Assessment & Plan (12/23/2018 10:18 PM CDT): Valtex to pharmacy. She has had shingles in the past. Obesity (BMI 30-39.9) 11/01/2018 Assessment & Plan (05/24/2025 9:25 AM WIRELESS WATCHER): Discussed the patient's BMI. The BMI is [...] diabetes. Assessment & Plan (05/07/2024 8:55 PM WIRELESS WATCHER): Pre-diabetes/hyperglycemia is a precursor to Dm. Stressed [...] diabetes. Assessment & Plan (09/06/2023 9:40 AM WIRELESS WATCHER): Pre-diabetes/hyperglycemia is a precursor to Dm. Stressed [...] diabetes. Assessment & Plan (09/11/2021 11:22 PM WIRELESS WATCHER): Pre-diabetes/hyperglycemia is a precursor to Dm. Stressed importance of working on diet (decrease your simple sugars and one carbohydrate with each meal) and increase you exercise to achieve weight loss and this will help prevent you from progressing to diabetes. Assessment & Plan (05/29/2021 8:18 PM WIRELESS WATCHER): Pre-diabetes/hyperglycemia is a precursor to Dm. Stressed [...] diabetes. Assessment & Plan (08/31/2020 9:34 AM WIRELESS WATCHER): Pre-diabetes is a precursor to Dm. Stressed [...] diabetes. Assessment & Plan (08/13/2019 9:00 AM WIRELESS WATCHER): This is a significant, separately identifiable problem [...] b.I.d. Assessment & Plan (05/07/2024 8:54 PM WIRELESS WATCHER): Depression symptoms are stable with Wellbutrin XL 150 Cymbalta 60 b.i.d. Assessment & Plan (04/21/2024 8:50 PM CDT): Depression symptoms are stable with the Wellbutrin XL 150 and Cymbalta 60 b.i.d. Assessment & Plan (01/22/2024 8:11 PM CDT): Depression symptoms are stable with Wellbutrin and Cymbalta Assessment & Plan (09/06/2023 9:40 AM WIRELESS WATCHER): Depression is stable with Wellbutrin and Cymbalta Assessment & Plan (08/03/2023 8:31 AM WIRELESS WATCHER): Stable with Cymbalta 60 and Wellbutrin XL [...] Cymbalta Assessment & Plan (09/11/2021 11:26 PM WIRELESS WATCHER): Continue Wellbutrin and Cymbalta Assessment & Plan (05/29/2021 8:22 PM WIRELESS WATCHER): Continue Wellbutrin and Cymbalta Assessment & Plan (05/24/2021 10:39 AM WIRELESS WATCHER): Continue Wellbutrin and Cymbalta Assessment & Plan (12/24/2020 9:07 AM CDT): Continue wellbutrin and cymbalta Assessment & Plan (08/31/2020 9:35 AM WIRELESS WATCHER): Continue wellbutrin and cymbalta Assessment & Plan (02/18/2020 9:47 PM CDT): Stable with the Cymbalata Assessment & Plan (08/13/2019 8:59 AM WIRELESS WATCHER): Stable with Cymbalta and Wellbutrin Assessment & [...] regimen. Med list updated to reflect the [id number] one daily and Prozac 40mg. Mixed hyperlipidemia 03/29/2018 Assessment & Plan (05/19/2025 8:17 AM WIRELESS WATCHER): Continue Crestor Assessment & Plan (05/18/2025 10:54 AM WIRELESS WATCHER): Continue Crestor Assessment & Plan (05/17/2025 4:05 PM WIRELESS WATCHER): Resume aspirin/statin Assessment & Plan (12/09/2024 8:10 [...] 10 Assessment & Plan (05/07/2024 8:54 PM WIRELESS WATCHER): Encouraged patient to follow low fat/low chol [...] statin Assessment & Plan (09/06/2023 9:42 AM WIRELESS WATCHER): Encouraged patient to follow low fat/low chol [...] statin Assessment & Plan (09/11/2021 11:26 PM WIRELESS WATCHER): Encouraged patient to follow low fat/low chol diet like the Mediterranean diet. Increase good fats in the diet. Increase exercise. Monitor labs as needed. Continue statin Assessment & Plan (05/29/2021 8:22 PM WIRELESS WATCHER): Encouraged patient to follow fat/low chol diet like the Mediterranean diet. Increase good fats in the diet. Increase exercise. Monitor labs as needed. Continue statin Assessment & Plan (05/24/2021 10:39 AM WIRELESS WATCHER): Encouraged patient to follow fat/low chol diet like the Mediterranean diet. Increase good fats in the diet. Increase exercise. Monitor labs as needed. Continue statin Assessment & Plan (12/24/2020 9:07 AM CDT): Encouraged patient to follow fat/low chol diet like the Mediterranean diet. Increase good fats in the diet. Increase exercise. Monitor labs as needed. Continue statin Assessment & Plan (08/31/2020 9:34 AM WIRELESS WATCHER): Encouraged patient to follow fat/low chol diet like the Mediterranean diet. Increase good fats in the diet. Increase exercise. Monitor labs as needed. Continue statin Assessment & Plan (02/18/2020 9:46 PM CDT): Encouraged patient to continue low fat/low chol diet. Continue exercise. Increase good fats in the diet. Monitor labs as needed. Assessment & Plan (08/13/2019 8:59 AM WIRELESS WATCHER): Encouraged patient to continue low fat/low chol [...] future Assessment & Plan (09/06/2023 9:40 AM WIRELESS WATCHER): Continue PPI Assessment & Plan (04/06/2023 7:36 PM CDT): Continue PPI p.r.n. Assessment & Plan (01/20/2023 8:13 PM CDT): Continue PPI Assessment & Plan (09/12/2022 6:13 PM CDT): Continue PPI p.r.n. Assessment & Plan (06/03/2022 3:40 PM WIRELESS WATCHER): Pyrosis poorly controlled on Nexium. Pt has [...] PPI Assessment & Plan (09/11/2021 11:26 PM WIRELESS WATCHER): Continue PPI Assessment & Plan (12/24/2020 9:05 AM CDT): Continue PPI Assessment & Plan (02/18/2020 9:45 PM CDT): Continue PPI. Saw Dr. Linton for increased GERD sxs. If persist, encouraged to followup again with Dr. Linton. Assessment & Plan (08/13/2019 8:58 AM WIRELESS WATCHER): Stable with PPI Assessment & Plan (04/29/2019 [...] exertion) Assessment & Plan (06/22/2022 10:30 AM WIRELESS WATCHER): Patient is not currently using inhalers. She [...] water pressure while sleeping. Her DME is [facility]. I have sent an order over to [facility] due to her changing insurances. Assessment & Plan (10/22/2024 1:05 PM CDT): Managed by Dr. Dunn. Continue CPAP Assessment & Plan (08/02/2024 11:49 AM WIRELESS WATCHER): Due to the patient stating the pressure [...] readjusted. She denied need for supplies. DME [facility] Assessment & Plan (05/07/2024 8:55 PM WIRELESS WATCHER): Continue with CPAP. Assessment & Plan (04/21/2024 8:49 PM CDT): Continue per Dr. Dunn. Has all her needed supplies for CPAP which she is using every night. Continue with Requip 0.5 mg HS for restless leg Assessment & Plan (01/22/2024 8:08 PM CDT): Continue CPAP per Dr. Dunn Assessment & Plan (09/06/2023 9:40 AM WIRELESS WATCHER): Continue CPAP Assessment & Plan (06/21/2023 10:14 AM WIRELESS WATCHER): Patient continue to wear her CPAP at [...] CPAP Assessment & Plan (06/22/2022 10:31 AM WIRELESS WATCHER): Will continue CPAP therapy at an auto titrating range of 7-20 cm water pressure. Denied need for supplies. DME [facility] Assessment & Plan (05/02/2022 9:15 [...] Patient denied need for supplies. DME company [facility]. Patient is benefitting CPAP Assessment & Plan (09/11/2021 11:22 PM WIRELESS WATCHER): Continue CPAP. Patient has all needed supplies. Assessment & Plan (07/13/2021 11:27 AM WIRELESS WATCHER): Due to the patient stating she does not have enough pressure in her machine, I have increased the pressure to 13 cm water pressure. The patient denied need for for supplies. DME [employer] [facility]. Have also ordered a new smart card set at 13 cm water pressure. Benefitting from CPAP therapy Assessment & Plan (05/29/2021 8:14 PM WIRELESS WATCHER): Continue CPAP. Assessment & Plan (02/17/2021 11:09 AM CDT): The patient continues to be compliant with her CPAP at 8 cm water pressure. She has developed worsening daytime hypersomnia. She also has morning headaches and dry mouth. I have recommended proceeding with a CPAP titration study starting at 8 cm water pressure. Her DME is [facility]. Assessment & Plan (12/24/2020 9:04 AM CDT): Continue CPAP. Would like to see Pulm/sleep at [facility] as difficulty getting in consistently at [facility] and most of her care is now [facility] Assessment & Plan (02/18/2020 9:44 PM CDT): Continue CPAP Assessment & Plan (08/13/2019 8:46 AM WIRELESS WATCHER): Using the CPAP. Has equipment as needed. [...] planned. Assessment & Plan (08/23/2024 10:16 AM WIRELESS WATCHER): 02/2021 XR L knee with mild to moderate OA, now s/p B TKA. Following with ortho as planned. Assessment & Plan (07/30/2024 11:23 AM WIRELESS WATCHER): 02/2021 XR L knee with mild to [...] March. Assessment & Plan (09/01/2023 3:42 PM WIRELESS WATCHER): 02/2021 XR L knee with mild to moderate OA, R knee negative. Had injections with ortho without benefit, now s/p L TKA. Assessment & Plan (06/30/2023 12:46 PM WIRELESS WATCHER): 02/2021 XR L knee with mild to [...] g/d. Assessment & Plan (07/15/2022 1:41 PM WIRELESS WATCHER): 02/2021 XR L knee with mild to moderate OA, R knee negative. Had injections with ortho with benefit. Unable to afford PT. Can continue Tylenol Arthritis, not to exceed 4 g/d. Assessment & Plan (06/03/2022 9:58 AM WIRELESS WATCHER): 02/2021 XR L knee with mild to [...] evaluation. Assessment & Plan (09/03/2021 11:27 AM WIRELESS WATCHER): XR L knee with mild to moderate [...] able. Assessment & Plan (06/04/2021 10:27 AM WIRELESS WATCHER): XR L knee with mild to moderate [...] above. Assessment & Plan (09/03/2020 12:23 PM WIRELESS WATCHER): 10/27/2017 XR L knee: mild tricompartmental OA. Will continue meloxicam as above. Assessment & Plan (07/09/2020 12:24 PM WIRELESS WATCHER): 10/27/2017 XR L knee: mild tricompartmental OA. [...] examination. Assessment & Plan (05/19/2025 8:17 AM WIRELESS WATCHER): On hydroxychloroquine. We will continue Assessment & Plan (05/18/2025 10:54 AM WIRELESS WATCHER): On hydroxychloroquine. We will continue Assessment & Plan (05/17/2025 4:05 PM WIRELESS WATCHER): Resume hydroxychloroquine Assessment & Plan (03/27/2025 12:01 [...] Plan (10/22/2024 1:04 PM CDT): Continue per [facility]. Continue Plaquenil methotrexate Orencia folic acid Mobic gabapentin. Assessment & Plan (08/23/2024 12:54 PM WIRELESS WATCHER): Moderate cdai with report of increasing pain, [...] needed. Assessment & Plan (07/30/2024 11:22 AM WIRELESS WATCHER): Moderate cdai with report of increased morning [...] visit with labs near her home ([facility] in [place]), but the following month will need to plan for an in person visit. She expressed understanding and agreement with this plan. Continue methotrexate 20 mg weekly, folic acid 2 mg daily, and hydroxychloroquine 200 mg BID. Labs today as below. Assessment & Plan (05/07/2024 8:55 PM WIRELESS WATCHER): Managed by [facility]. Currently on Plaquenil and methotrexate and Orencia folic acid Mobic and gabapentin. Stressed she needs to be in contact with her food manager on when and which medicines to stop for the surgery. Assessment & Plan (04/21/2024 8:49 PM CDT): Continue per [facility]. They currently manage [...] Plan (01/22/2024 8:17 PM CDT): Continue per [facility] as they manage her condition. Assessment & Plan (11/24/2023 9:58 AM CDT): Low cdai without inflammatory sounding pain. Will continue methotrexate 20 mg weekly, folic acid 2 mg daily, hydroxychloroquine 200 mg BID, and Orencia and monitor. Labs today as below. Follow up in 3 months or sooner as needed. Assessment & Plan (09/06/2023 9:42 AM WIRELESS WATCHER): Rheumatoid arthritis is managed by [facility]. Currently on Plaquenil methotrexate Orencia and folic acid Assessment & Plan (09/01/2023 3:39 PM WIRELESS WATCHER): Overall stable without notable synovitis and no inflammatory sounding pain. Will continue methotrexate 20 mg weekly, folic acid 2 mg daily, hydroxychloroquine 200 mg BID, and Orencia and monitor. Labs today as below. Follow up in 3 months or sooner as needed. Assessment & Plan (08/03/2023 8:28 AM WIRELESS WATCHER): Continue with rheumatology. Assessment & Plan (06/30/2023 12:43 PM WIRELESS WATCHER): Overall stable without notable synovitis and no inflammatory sounding pain. Will continue methotrexate 20 mg weekly, folic acid 2 mg daily, hydroxychloroquine 200 mg BID, and Orencia and monitor. Labs today as below. Assessment & Plan (06/02/2023 4:49 PM WIRELESS WATCHER): Continue per Rheumatology Assessment & Plan (04/06/2023 7:35 PM CDT): Continue per Rheumatology. She has been in discussion with them on what medications to stop prior to her knee surgery. She states she was told to take all of her medicines accept the Orencia. Assessment & Plan (01/20/2023 8:12 PM CDT): Continue per [facility] Assessment & Plan (01/13/2023 3:42 [...] Plan (09/12/2022 6:06 PM CDT): Continue with [facility] Assessment & Plan (07/15/2022 1:41 PM WIRELESS WATCHER): Low cdai. Significantly improved after IM triamcinolone [...] needed. Assessment & Plan (06/03/2022 3:37 PM WIRELESS WATCHER): High cdai. Previously felt well controlled with current regimen. Due to burden of disease will give patient a triamcinolone injection. Patient made aware of SE of steroids including but not limited to HTN, increased blood glucose, cataracts, glaucoma, AVN, and osteoporosis with fci use. Should she flare again shortly after [...] (01/23/2022 4:57 PM CDT): Continue management per [facility] Assessment & Plan (12/07/2021 9:02 AM CDT): Low cdai. Denies inflammatory sounding joint pain. Continue methotrexate 25 mg weekly, folic acid to 2 mg daily, Rinvoq 15 mg daily, hydroxychloroquine 200 mg BID, and cyclobenzaprine 5 mg qhs and monitor. Labs today as below. Plan for follow up in 3 months or sooner as needed. Assessment & Plan (09/11/2021 11:14 PM WIRELESS WATCHER): Continue per [facility] Assessment & Plan (09/03/2021 11:25 AM WIRELESS WATCHER): cdai = 12. Pt suspects increased joint [...] needed. Assessment & Plan (06/04/2021 10:25 AM WIRELESS WATCHER): Low cdai. Denies inflammatory sounding pain at present. Will plan to continue methotrexate 25 mg weekly, folic acid to 2 mg daily, Rinvoq 15 mg daily, hydroxychloroquine 200 mg BID, and cyclobenzaprine 5 mg qhs and monitor. Labs today as below. Plan for follow up in 3 months or sooner as needed. Assessment & Plan (05/31/2021 9:15 PM WIRELESS WATCHER): Continue per Rheumatology Assessment & Plan (05/29/2021 8:13 PM WIRELESS WATCHER): Continue per Rheumatology. Currently on Plaquenil methotrexate and folic acid. Assessment & Plan (05/24/2021 10:38 AM WIRELESS WATCHER): Continue per Rheumatology Assessment & Plan (03/05/2021 [...] needed. Assessment & Plan (09/03/2020 12:22 PM WIRELESS WATCHER): Low cdai. Continues to feel improved with [...] needed. Assessment & Plan (08/31/2020 9:34 AM WIRELESS WATCHER): Continue per [facility] Assessment & Plan (07/09/2020 12:22 PM WIRELESS WATCHER): 64yoF with a h/o seropositive RA diagnosed [...] time. Assessment & Plan (06/04/2020 11:14 AM WIRELESS WATCHER): 64yoF with a h/o seropositive RA diagnosed [...] needed. Assessment & Plan (05/14/2020 9:33 PM WIRELESS WATCHER): Refer to new [facility] as Dr. Soto has . Assessment & Plan (02/18/2020 9:46 PM CDT): Continue per Rheum Assessment & Plan (08/13/2019 8:59 AM WIRELESS WATCHER): Continue per Dr. Soto Assessment & Plan [...] and indigestion Reclast 03/28/2019, 07/09/2020, 07/2021 Pause [id number] Restart ZOL 11/25 Assessment & Plan (11/08/2024 [...] recommendations from the bone metabolism group at [facility] Dr. Martinez. Appointment is scheduled in November. Has been on Reclast and Forteo. She also continues with vitamin-D Assessment & Plan (01/22/2024 8:08 PM CDT): Patient with osteoporosis. Has not been responding to Reclast. Forteo was tried by [facility] and she could [...] her osteoporosis, recommended evaluation by the [facility], unfortunately their first available appt was in November 2024. Recommended today that she check with [facility] Osteoporosis center (at [facility]) to see how far out they are scheduling new patients, though she does not like this option due to distance from her house. Assessment & Plan (09/06/2023 9:40 AM WIRELESS WATCHER): Managed by [facility]. Per patient they are making a referral to bone metabolism at [facility] she has not seen significant improvement with the Forteo or the Reclast. Assessment & Plan (09/01/2023 3:43 PM WIRELESS WATCHER): DEXA: Lspine BMD 0.809 Tscore -2.2, L [...] her osteoporosis, recommend evaluation by the [facility], provided contact info for Dr. Castillo. Pt in agreement with plan. Assessment & Plan (06/30/2023 12:49 PM WIRELESS WATCHER): DEXA: Lspine BMD 0.809 Tscore -2.2, L [...] PM CDT): Continue to monitor. Managed by [facility]. Patient is on Reclast calcium vitamin-D [...] exercise Assessment & Plan (07/15/2022 1:42 PM WIRELESS WATCHER): 01/27/2021 DEXA: Lspine -1.8, L femoral neck -1.9, L total hip -1.2, R femoral neck -2.3, R total hip -1.0, FRAX major 32% and hip 7%. Received Reclast 07/2021. Continue yearly Reclast, scheduled for 07/22 Assessment & Plan (06/03/2022 3:38 PM WIRELESS WATCHER): 01/27/2021 DEXA: Lspine -1.8, L femoral neck [...] Plan (01/23/2022 5:02 PM CDT): Managed by [facility] currently on Reclast calcium and vitamin-D Assessment & Plan (12/07/2021 9:04 AM CDT): 01/27/2021 DEXA: Lspine -1.8, L femoral neck -1.9, L total hip -1.2, R femoral neck -2.3, R total hip -1.0, FRAX major 32% and hip 7%. Received Reclast 07/2021. Continue yearly Reclast. Assessment & Plan (09/03/2021 11:26 AM WIRELESS WATCHER): 01/27/2021 DEXA: Lspine -1.8, L femoral neck -1.9, L total hip -1.2, R femoral neck -2.3, R total hip -1.0, FRAX major 32% and hip 7%. Received Reclast 07/2021. Continue yearly reclast and daily vitamin D-calcium supplement. Assessment & Plan (06/04/2021 10:27 AM WIRELESS WATCHER): 01/27/2021 DEXA: Lspine -1.8, L femoral neck [...] order provided today, she will schedule at [facility] Assessment & Plan (12/24/2020 9:06 AM CDT): Continue Reclast thru Rheum Continue calcium, vitD and exercise Assessment & Plan (12/03/2020 10:45 AM CDT): Vitamin D level was 68. Received Reclast 07/09/2020. Last DEXA per available records was 01/31/2019, due this summer - order provided today, she will schedule at [facility] Assessment & Plan (09/03/2020 12:23 PM WIRELESS WATCHER): Vitamin D level was 68. Received Reclast 07/09/2020. Last DEXA per available records was 01/31/2019, due this summer. Assessment & Plan (07/09/2020 12:23 PM WIRELESS WATCHER): Overdue for Reclast, last infusion was 03/28/2019, will receive infusion today. Vitamin D level was 68 Last DEXA per available records was 01/31/2019 Assessment & Plan (06/04/2020 11:15 AM WIRELESS WATCHER): Overdue for Reclast, last infusion was 03/28/2019, will check benefits. Recheck vitamin D level now. Last DEXA per available records was 01/31/2019 Assessment & Plan (02/18/2020 9:46 PM CDT): Calcium, vit D and exercise. Continue to monitor DXA Assessment & Plan (08/13/2019 8:58 AM WIRELESS WATCHER): Continue with Calcium, Vit D and Exercise. [...] 10/09/2024 Assessment & Plan (05/07/2024 8:57 PM WIRELESS WATCHER): I have examined this patient and ordered [...] Krishnamurthy. 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 Daniels Stressed importance of very close follow-up BMI 37.0-37.9, adult 09/06/2023 024 Assessment & Plan (10/13/2023 7:38 AM CDT): Discussed the patient's BMI. The BMI is above average. BMI management plan is completed. BMI Follow-up includes: nutrition counseling, exercise counseling and education provided. Assessment & Plan (09/06/2023 9:42 AM WIRELESS WATCHER): Discussed the patient's BMI. The BMI is above average. BMI management plan is completed. BMI Follow-up includes: nutrition counseling, exercise counseling and education provided. Hyperglycemia 09/06/2023 09/06/2023 Positive depression screening 09/06/2023 09/06/2023 Annual physical exam 09/06/2023 024 Assessment & Plan (09/06/2023 9:43 AM WIRELESS WATCHER): Encouraged healthy lifestyle, good nutrition and exercise. Encouraged Calcium and Vitamin D and weight bearing exercise for bone health. Reviewed immunizations Reviewed age appropirate screenings. Orthopedic aftercare 08/09/2023 025 Right knee pain 08/09/2023 09/06/2023 Sinus congestion 08/07/2023 09/06/2023 Assessment & Plan (08/07/2023 7:54 PM WIRELESS WATCHER): Persistent sinusitis symptoms along with cough. Will start doxy b.i.d.. Start antihistamine (Claritin OR Zyrtec), Mucinex 12hour and Steroid nasal spray (Flonase). Push fluids. Rest. Supportive care. If sxs worsen or don\'t improve, pt is to followup in the office. BMI 35.0-35.9,adult 08/03/2023 09/06/19 24 Assessment & Plan (08/07/2023 7:51 PM WIRELESS WATCHER): Discussed the patient's BMI. The BMI is above average. BMI management plan is completed. BMI Follow-up includes: nutrition counseling, exercise counseling and education provided. Assessment & Plan (08/03/2023 8:29 AM WIRELESS WATCHER): Discussed the patient's BMI. The BMI is [...] provided. Assessment & Plan (05/07/2024 8:56 PM WIRELESS WATCHER): Discussed the patient's BMI. The BMI is [...] provided. Assessment & Plan (09/06/2023 9:38 AM WIRELESS WATCHER): Discussed the patient's BMI. The BMI is above average. BMI management plan is completed. BMI Follow-up includes: nutrition counseling, exercise counseling and education provided. Patient has an obesity-related condition (not limited to: hypertension, obstructive sleep apnea, osteoarthritis, hyperlipidemia, diabetes, etc.). Therefore, morbid obesity may be documented for patients with a BMI between 35.00-39.99. Assessment & Plan (08/07/2023 7:51 PM WIRELESS WATCHER): Discussed the patient's BMI. The BMI is above average. BMI management plan is completed. BMI Follow-up includes: nutrition counseling, exercise counseling and education provided. Patient has an obesity-related condition (not limited to: hypertension, obstructive sleep apnea, osteoarthritis, hyperlipidemia, diabetes, etc.). Therefore, morbid obesity may be documented for patients with a BMI between 35.00-39.99. Assessment & Plan (08/03/2023 7:45 AM WIRELESS WATCHER): Discussed the patient's BMI. The BMI is above average. BMI management plan is completed. BMI Follow-up includes: nutrition counseling, exercise counseling and education provided. 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 My staff contacted the patient and she was instructed to go to the ER for further evaluation to determine underlying cause. She states throughout the day she has noticed a little bit more shortness of breath. She plans to have her brother drive her to [facility]. Charge nurse was notified of the arrival [...] surgery. Will defer cardiac clearance to her beauty operator. Her chronic medical conditions are stable. [facility] as instructed her to hold the [...] Ge Sexton on May 04 at [facility]. Need for vaccination for Strep pneumoniae [...] symptoms worsen or do not respond to [id number] allergy medicines within the next week she [...] provided. Assessment & Plan (08/23/2022 2:19 PM WIRELESS WATCHER): Discussed the patient's BMI. The BMI is [...] plans Assessment & Plan (07/18/2022 10:20 AM WIRELESS WATCHER): CT revealed pelvic lipomatosis that is compressing [...] 12/20/2022 Assessment & Plan (07/18/2022 10:21 AM WIRELESS WATCHER): CT revealed pelvic lipomatosis that is compressing [...] plan, Assessment & Plan (07/08/2022 12:33 PM WIRELESS WATCHER): Patient has had dysuria. She was started [...] STAT abd/pelvis with and without contrast at [facility]. Check labs STAT. Acute right flank pain 07/08/202204/06 Assessment & Plan (07/18/2022 10:21 AM WIRELESS WATCHER): CT revealed pelvic lipomatosis that is compressing [...] plan, Assessment & Plan (07/08/2022 5:58 PM WIRELESS WATCHER): Images from the original note were not [...] STAT abd/pelvis with and without contrast at [facility]. Check labs STAT. STAT CT Abd/pelvis without [...] 09/06/2023 Assessment & Plan (07/08/2022 12:33 PM WIRELESS WATCHER): Patient has had dysuria. She was started [...] STAT abd/pelvis with and without contrast at [facility]. Check labs STAT. Assessment & Plan (07/06/2022 8:50 AM WIRELESS WATCHER): Pt presents with dysuria. Urine dip completed. [...] 35.00-39.99. Assessment & Plan (07/18/2022 10:23 AM WIRELESS WATCHER): Discussed the patient's BMI. The BMI is above average. BMI management plan is completed. BMI Follow-up includes: nutrition counseling, exercise counseling and education provided. Assessment & Plan (07/08/2022 12:30 PM WIRELESS WATCHER): Discussed the patient's BMI. The BMI is [...] She has received multiple injections from her food manager regarding her knee but yesterday when [...] 01/23/2022 Assessment & Plan (09/11/2021 11:28 PM WIRELESS WATCHER): Patient has never had a full skin exam. She has quite a few lesions scattered and would benefit from a full exam. Will make referral Annual physical exam 09/11/2021 022 Assessment & Plan (09/11/2021 11:28 PM WIRELESS WATCHER): Encouraged healthy lifestyle, good nutrition and exercise. Encouraged Calcium and Vitamin D and weight bearing exercise for bone health. Reviewed immunizations Reviewed age appropirate screenings. Cough 08/13/2021 01/23/2022 Assessment & Plan (08/13/2021 3:43 PM WIRELESS WATCHER): Patient to presume positive COVID/FLU until results are available and plan to self isolate for up to 10 days from the onset of sxs. Check COVID/FLU test thru [facility] collection site in [place]. Let pt know the newest CDC recommendations [...] future. Assessment & Plan (07/13/2021 11:28 AM WIRELESS WATCHER): I have ordered the patient Claritin 10 [...] provided. Assessment & Plan (09/11/2021 11:27 PM WIRELESS WATCHER): Obesity is unchanged. Discussed the patient's BMI. The BMI is above average. BMI management plan is completed. BMI Follow-up includes: nutrition counseling, exercise counseling and education provided. Assessment & Plan (05/29/2021 8:24 PM WIRELESS WATCHER): Obesity is unchanged. Discussed the patient's BMI. The BMI is above average. BMI management plan is completed. BMI Follow-up includes: nutrition counseling, exercise counseling and education provided. Assessment & Plan (05/12/2021 1:26 PM WIRELESS WATCHER): Obesity is unchanged. Discussed the patient's BMI. The BMI is above average. BMI management plan is completed. BMI Follow-up includes: nutrition counseling, exercise counseling and education provided. BMI 37.0-37.9, adult 05/12/2021 05//2 022 Assessment & Plan (09/11/2021 11:27 PM WIRELESS WATCHER): Obesity is unchanged. Discussed the patient's BMI. The BMI is above average. BMI management plan is completed. BMI Follow-up includes: nutrition counseling, exercise counseling and education provided. Assessment & Plan (05/29/2021 8:24 PM WIRELESS WATCHER): Obesity is unchanged. Discussed the patient's BMI. The BMI is above average. BMI management plan is completed. BMI Follow-up includes: nutrition counseling, exercise counseling and education provided. Assessment & Plan (05/12/2021 1:26 PM WIRELESS WATCHER): Obesity is unchanged. Discussed the patient's BMI. The BMI is above average. BMI management plan is completed. BMI Follow-up includes: nutrition counseling, exercise counseling and education provided. Tinea corporis 04/14/2021 01/23/2022 Assessment & Plan (05/31/2021 9:15 PM WIRELESS WATCHER): Improving with Lotrisone. Keep the area clean and dry Assessment & Plan (05/29/2021 8:24 PM WIRELESS WATCHER): Lotrisone to pharmacy. Encouraged her to keep the area clean and dry use her dryer to dry the skin before applying the cream. She is to call if symptoms worsen or do not resolve. Need for immunization against influenza 04/14/2021 05/31/2021 Assessment & Plan (05/29/2021 8:24 PM WIRELESS WATCHER): Fluid updated in the office Medicare annual wellness visit, subsequent 04/13/2021 05/31/2021 Assessment & Plan (05/29/2021 8:23 PM WIRELESS WATCHER): Encouraged healthy lifestyle, good nutrition and exercise. [...] 12/30/2020 Assessment & Plan (08/31/2020 9:31 AM WIRELESS WATCHER): Error. This should be right calf but PT order sent and corrected so unable to remove. Fatigue 08/31/2020 09/06/2023 Assessment & Plan (04/06/2023 7:43 PM CDT): Probably multifactorial. Check labs and followup to re-evaluate Assessment & Plan (05/02/2022 9:16 PM CDT): Probably multifactorial. Check labs and followup to re-evaluate Assessment & Plan (08/31/2020 9:34 AM WIRELESS WATCHER): Probably multifactorial. Check labs and followup to re-evaluate Pain in both lower extremities 08/31/2020 09/06/2023 Assessment & Plan (09/01/2023 3:41 PM WIRELESS WATCHER): Cramping lower leg pain has resolved with [...] 021 Assessment & Plan (08/31/2020 9:33 AM WIRELESS WATCHER): Obesity is unchanged. Discussed the patient's BMI. The BMI is above average. BMI management plan is completed. BMI Follow-up includes: nutrition counseling, exercise counseling and education provided. Pain of right calf 08/26/2020 Assessment & Plan (08/31/2020 9:31 AM WIRELESS WATCHER): This is a significant, separately identifiable problem that was evaluated and managed on the same day as the wellness exam Unable to rule out DVT with her calf pain/sxs. Check STAT Venous doppler. Recvd Results and discussed with patient via phone. Negative for DVT. Recommend PT. Prefers [facility] Annual physical exam 08/24/2020 021 Assessment & Plan (08/31/2020 9:34 AM WIRELESS WATCHER): Encouraged healthy lifestyle, good nutrition and exercise. Encouraged Calcium and Vitamin D and weight bearing exercise for bone health. Reviewed immunizations Reviewed age appropirate screenings. Dizziness 05/07/2020 09/06/2023 Assessment & Plan (05/14/2020 9:35 PM WIRELESS WATCHER): Suspect the dizziness is inner ear related. [...] imaging. Assessment & Plan (05/07/2020 1:49 PM WIRELESS WATCHER): Declines to report to er now 'I [...] 05/14/2020 Assessment & Plan (05/07/2020 1:49 PM WIRELESS WATCHER): Declines to report to er now 'I [...] 12/30/2020 Assessment & Plan (05/07/2020 1:49 PM WIRELESS WATCHER): Declines to report to er now 'I [...] provided Assessment & Plan (05/31/2021 9:15 PM WIRELESS WATCHER): Mammogram order provided Assessment & Plan (02/18/2020 9:47 PM CDT): Mammogram order provided today Medicare annual wellness visit, subsequent 02/15/2020 02/15/2020 Precordial pain 09/04/2019 09/06/2023 Assessment & Plan (08/07/2023 7:50 PM WIRELESS WATCHER): Workup in the hospital. Cardiology states her [...] inhaler. Assessment & Plan (07/13/2021 11:26 AM WIRELESS WATCHER): The patient will continue with Dulera 2 [...] 020 Assessment & Plan (08/13/2019 8:59 AM WIRELESS WATCHER): Encouraged healthy lifestyle, good nutrition and exercise. Encouraged Calcium and Vitamin D and weight bearing exercise for bone health. Reviewed immunizations Reviewed age appropirate screenings. Obesity, morbid, BMI 40.0-49.9 08/13/2019 09/23/2020 Assessment & Plan (08/26/2020 7:10 AM WIRELESS WATCHER): Obesity is unchanged. Discussed the patient's BMI. The BMI is above average. BMI management plan is completed. BMI Follow-up includes: nutrition counseling, exercise counseling and education provided. Assessment & Plan (05/14/2020 9:33 PM WIRELESS WATCHER): Obesity is unchanged. Discussed the patient's BMI. [...] provided. Assessment & Plan (08/13/2019 8:58 AM WIRELESS WATCHER): Obesity is unchanged. Discussed the patient's BMI. [...] change Assessment & Plan (08/13/2019 9:01 AM WIRELESS WATCHER): This is a significant, separately identifiable problem [...] 01/22/2024 Assessment & Plan (09/06/2023 9:42 AM WIRELESS WATCHER): Probably multifactorial. Check labs and followup to re-evaluate Assessment & Plan (09/03/2021 11:28 AM WIRELESS WATCHER): She notes increased fatigue and lack of [...] re-evaluate Assessment & Plan (08/13/2019 9:08 AM WIRELESS WATCHER): Probably multifactorial. Check labs and followup to re-evaluate Check labs prior to next visit BMI 40.0-44.9, adult 08/02/2019 020 Assessment & Plan (08/13/2019 8:57 AM WIRELESS WATCHER): Obesity is unchanged. Discussed the patient's BMI. The BMI is above average. BMI management plan is completed. BMI Follow-up includes: nutrition counseling, exercise counseling and education provided. Assessment & Plan (08/02/2019 7:21 AM WIRELESS WATCHER): Obesity is unchanged. Discussed the patient's BMI. The BMI is above average. BMI management plan is completed. BMI Follow-up includes: nutrition counseling, exercise counseling and education provided. Morbid obesity 08/02/2019 08/13/2019 Assessment & Plan (08/02/2019 7:20 AM WIRELESS WATCHER): Obesity is unchanged. Discussed the patient's BMI. The BMI is above average. BMI management plan is completed. BMI Follow-up includes: nutrition counseling, exercise counseling and education provided. Acute non-recurrent maxillary sinusitis 08/02/2019 08/13/2019 Assessment & Plan (08/02/2019 7:47 AM WIRELESS WATCHER): Start antibiotic, antihistamine, Mucinex and Steroid nasal [...] She is being sent directly to [facility] and they were working her in [...] 21 Assessment & Plan (05/14/2020 9:33 PM WIRELESS WATCHER): Completed Doxy and steroid. No s/s infection. [...] p.r.n. Assessment & Plan (08/13/2019 8:59 AM WIRELESS WATCHER): Continue with NSAIDs prn Atheroscler of [place] artery of both legs with intermit claudication 10/31/2018 12/20/2022 Assessment & Plan (09/11/2021 11:23 PM WIRELESS WATCHER): Continue per vascular. She is on aspirin and statin Assessment & Plan (12/24/2020 9:03 AM CDT): Sxs stable. On ASA, statin and encouraged daily exercise. Assessment & Plan (02/18/2020 9:43 PM CDT): Continue per cardio. On ASA and statin Assessment & Plan (08/13/2019 8:45 AM WIRELESS WATCHER): Continues with Dr. Alonso salmeron Assessment & Plan (11/01/2018 11:00 PM CDT): Pt sxs well controlled. On ASA Coronary artery disease of n ative artery of [place] heart with stable angina pectoris 10/31/2018 12/30/2020 Assessment & Plan (08/13/2019 8:36 AM WIRELESS WATCHER): On ASA and Nitrate. Continue per cardio Depression 07/16/2018 09/11/2021 Frontal sinusitis 06/26/2018 12/24/2020 Leukopenia 03/29/2018 12/30/2020 Other chronic pain 08/05/2017 3 Chronic seasonal allergic rh initis due to pollen 04/25/2017 12/30/2020 Assessment & Plan (12/24/2020 9:03 AM CDT): Continue current regimen with singulair and otc Assessment & Plan (02/18/2020 9:44 PM CDT): Continue with otc regimen Assessment & Plan (08/13/2019 8:46 AM WIRELESS WATCHER): Continue current regimen Assessment & Plan (11/01/2018 [...] potassium Assessment & Plan (09/11/2021 11:26 PM WIRELESS WATCHER): Bp is stable/in acceptable range for any co-morbidities. Encouraged to limit sodium intake and exercise for weight control. Currently stable without medication Assessment & Plan (05/29/2021 8:19 PM WIRELESS WATCHER): Bp is stable/in acceptable range for any co-morbidities. Encouraged to limit sodium intake and exercise for weight control. Continue Lasix is helping with the swelling and addition. Blood pressure stable Assessment & Plan (05/24/2021 10:38 AM WIRELESS WATCHER): Continue Lasix potassium Assessment & Plan (12/24/2020 9:05 AM CDT): Bp is stable/in acceptable range for any co-morbidities. Encouraged to limit sodium intake and exercise for weight control. Assessment & Plan (08/31/2020 9:32 AM WIRELESS WATCHER): Bp is stable/in acceptable range for any co-morbidities. Encouraged to limit sodium intake and exercise for weight control. Stable with laxis currently Assessment & Plan (02/18/2020 9:44 PM CDT): Bp is stable/in acceptable range for any co-morbidities. Encouraged to limit sodium intake and exercise for weight control. Assessment & Plan (08/13/2019 8:57 AM WIRELESS WATCHER): Bp is stable/in acceptable range for any [...] difficulty pulling them. Recommend finding some on [employer] that fit her calf that she can zip on and off. Showed them to her on [employer] and where to order them. She states she will try to get them. Assessment & Plan (05/31/2021 9:16 PM WIRELESS WATCHER): Improving slowly. May have been due to the Relafen. She is on 60 of Lasix with potassium 10 mEq daily. Continue with current plan. Keep legs elevated. Utilize compressi to improve cleared. on hose. Call if symptoms worsen or do not continue to improve. Assessment & Plan (05/29/2021 8:23 PM WIRELESS WATCHER): Persistent lower extremity edema that has improved [...] CMP. Assessment & Plan (05/24/2021 10:39 AM WIRELESS WATCHER): Patient that her swelling was improving since discharge for over the last day or so it seems to be increasing. Will increase the Lasix to 40mg Start K 10meq daily Recheck labs in 5 days Assessment & Plan (08/31/2020 9:33 AM WIRELESS WATCHER): Continue lasix Palpitations 12/08/2015 12/30/2020 Overview (10/09/2016): Palpitations Other abnormal glucose 11/11/201508/31 Asthma 10/14/2015 12/24/2020 Assessment & Plan (08/13/2019 8:49 AM WIRELESS WATCHER): Continue with current regimen and with Pulmonary Assessment & Plan (11/01/2018 10:53 PM CDT): Currently Stable with regimen. Monitor closely with current allergy season. Followup Dr. Gomez as directed. Menopause 10/14/2015 12/30/2020 Cervical pain (neck) 10/14/2015 023 Encounters Date Type Department Care Team Description 06/06/2025 9:30 AM WIRELESS WATCHER Clinical Support [address] [place] [phone] Left flank pain (Primary Dx); Dysuria 06/06/2025 Orders Only [address] [place] [phone] Alee Elizondo PA Urinary tract infection associated with catheterization of urinary tract, unspecified indwelling urinary catheter type, sequela (Primary Dx) 06/06/[address] [place] [phone] Alee Elizondo PA Symptom Based Call; Medical Question/Miscellaneou s 05/29/[address] [place] [phone] Alee Elizondo PA 05/27/[address] [place] [phone] Alee Elizondo PA 05/27/2025 Results Follow-Up [address] [place] [phone] Alee Elizondo PA POCT urinalysis dipstick, Urine culture Urine, clean voided, Comprehensive metabolic panel 05/24/2025 9:30 AM WIRELESS WATCHER Office Visit [address] [phone] Alee Elizondo PA Pyelonephritis (Primary Dx); Urinary retention; Dysuria; BMI 34.0-34.9,adult; Obesity (BMI 30-39.9) 05/21/2025 [facility] IP Outreach [address] [address] Allie East LPN 05/20/[address] [phone] Alee Elizondo PA JUSTIN Questions 05/17/2025 1:35 PM WIRELESS WATCHER - 05/20/2025 1:41 PM WIRELESS WATCHER Hospital Encounter [facility] [address] [address] Titus Garcia MD Chowdhury, Farhanaz, MD Acute pyelonephritis (Primary Dx); Left flank pain [R10.A2]; Acute renal failure, unspecified acute renal failure type [N17.9] Discharge Disposition: Discharge to home or self care 05/17/2025 8:15 AM WIRELESS WATCHER - 05/17/2025 11:59 PM WIRELESS WATCHER Hospital Encounter [facility] Diagnostic Imaging [address] [place] [phone] Calcium oxalate crystals in urine Discharge Disposition: Discharge to home or self care 05/17/2025 Results Follow-Up [address] [place] [address] Alee Elizondo PA XR Abdomen 1 View AP 05/17/2025 Nurse Triage [address] [place] [phone] Alee Elizondo PA 05/16/[address] [place] [phone] Alee Elizondo PA 05/13/2025 8:20 AM WIRELESS WATCHER Office Visit [facility] Medicine Urology [address] [place] [address] [address] [place] [address] [place] [phone] Urinary retention (Primary Dx) 05/12/2025 Results Follow-Up [address] [phone] Alee Elizondo PA Urine culture Urine, clean voided, Urinalysis reflex to microscopic and culture Urine, REFLEXIVE URINE CULTURE, Urine culture 05/09/2025 11:15 AM WIRELESS WATCHER Office Visit [facility] Orthopedics and Sports Medicine [address] [place] [phone] Michael Motta MD Chronic pain of right knee (Primary Dx); Status post total knee replacement using cement, right 05/09/2025 10:44 AM WIRELESS WATCHER - 05/09/2025 11:59 PM WIRELESS WATCHER Hospital Encounter [facility] [facility] [place] [address] Chronic pain of right knee; Status post total knee replacement using cement, right Discharge Disposition: Discharge to home or self care 04/25/2025 8:00 AM CDT Office Visit [address] [place] [phone] Alee Elizondo PA Medicare annual wellness visit, subsequent (Primary Dx); Fatigue, unspecified type; Anemia, unspecified type; Dysuria; Mixed hyperlipidemia; Rheumatoid arthritis involving multiple sites with positive rheumatoid factor (HCC); Moderate episode of recurrent major depressive disorder (HCC); Obesity (BMI 30-39.9); BMI 34.0-34.9,adult 04/25/2025 Results Follow-Up [facility] [address] [facility] [address] [place] [address] Alee Elizondo PA POCT urinalysis dipstick, CBC with auto differential, Comprehensive metabolic panel, Additional followed-up results: 6 04/15/2025 8:40 AM CDT Office Visit [facility]) [facility] [address] [facility] 11th [place] [address] [place] [address] Michelle Sanders PA Urinary retention (Primary Dx); Suprapubic catheter (HCC); Pelvic lipomatosis 04/11/2025 Nurse Triage [address] [place] [address] Alee Elizondo PA 04/05/2025 8:30 AM CDT Office Visit [facility] Cardiology [address] [facility] [address] [place] [address] Amy Mayes NP History of chest pain (Primary Dx); Venous insufficiency (chronic) (peripheral); OWEN on CPAP 04/05/2025 Telephone [facility] [place] [address] [facility] [address] [place] [address] Magaly Snider NP 04/04/2025 1:45 PM CDT Immunization [address] [place] [address] Flu vaccine need (Primary Dx) 03/28/2025 Telephone [facility] [address] [place] [address] Codi Branham 03/28/2025 Results Follow-Up [facility] [address] [place] [address] Sangita Farrar PA CBC with auto differential, Comprehensive metabolic panel 03/27/2025 8:30 AM CDT Office Visit [facility] [address] [place] [phone] Sangita Farrar PA 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 Urology [address] [place] [address] 11th [place] [address] [place] [address] Teofilo Gongora MD Urinary retention (Primary Dx) from Last 3 Months Immunizations Immunization Administration Dates Next Due COVID-19 mRNA (indico) 0.3 m L (30 mcg) vaccine (12 [...] time in the past 12 m [place], were you homeless or living in a mcc (including now)? No 05/30/2024 Social Connection and [...] time in the past 12 m [place], were you homeless or living in a mcc (including now)? No 05/20/2025 [facility] Utilities Answer Date Recorded In the past 12 months has [employer], gas, oil, or water [employer] threatened to shut off services in your home? No 05/20/2025 Personal Safety Answer Date Recorded Have you ever been in or are you currently in a harmful physical or emotional relationship or is someone making you feel afraid or unsafe? Denies 05/17/2025 Comments No Sex and Gender Information Value Date Recorded Sex Assigned at Not on file Legal Sex Female 8:04 PM WIRELESS WATCHER Gender Identity Female 02/15/2020 6:08 PM CDT Sexual Orientation Not on file Last Filed Vital Signs Vital Sign Reading Time Taken Comments Blood Pressure 120/76 05/24/2025 9:19 AM WIRELESS WATCHER Pulse 64 05/24/2025 9:19 AM WIRELESS WATCHER Temperature 37 C (98.6 F) 05/24/2025 9:19 AM WIRELESS WATCHER Respiratory Rate 18 05/20/2025 10:35 AM WIRELESS WATCHER Oxygen Saturation 94% 05/24/2025 9:19 AM WIRELESS WATCHER Inhaled Oxygen Concentration - - Weight 83 kg (183 lb) 05/24/2025 9:19 AM WIRELESS WATCHER Height 154.9 cm (5' 1) 05/24/2025 9:19 AM WIRELESS WATCHER Body Mass Index 34.58 05/24/2025 9:19 AM WIRELESS WATCHER Plan of Treatment Health Maintenance Due Date [...] history exists Medical Devices Implanted Type Area Telecommunicator Supervisor Device Identifier Shelf Expiration Date Model / Serial / Lot [employer] Simplex P Radiopaque Full Dose Cement Bone Sterile 6191-1-010 - [id number] Implanted:Qty: 2 on 05/04/2023 by Michael Motta MD at [facility] Bone Cement Left: Knee [employer] 05/03/2025 6191-1-010 / 6191-1-001 / [id number] [employer] Simplex P Radiopaque Full Dose Cement Bone Sterile 6191-1-010 - [id number] Implanted:Qty: 2 on 05/30/2024 by Michael Motta MD at [facility] Bone Cement Right: Patella [employer] [id number] 05/03/2026 6191-1-010 / / [id number] [employer] Persona 14mm 30+ Mm Knee Tibia Taper Extension Stem [id number] - [id number] 4 - [id number] Implanted:Qty: 1 on 05/04/2023 by Michael Motta MD at [facility] Left: Knee [employer] [id number] 02/15/2033 [id number] / 31-8270-379- 14 / [id number] [employer] Persona Cemented Cruciate Retaining Knee Left 7 Narrow Component [id number] - [id number] 1 - [id number] Implanted:Qty: 1 on 05/04/2023 by Michael Motta MD at [facility] Left: Knee [employer] [id number] 10/25/2032 [id number] / 27-1932-822- 01 / [id number] [employer] Baseplate Tibial Knee Cemented Left Fixed Stemmed Persona Size D Tivanium [id number] - [id number] 1 - [id number] Implanted:Qty: 1 on 05/04/2023 by Michael Motta MD at [facility] Left: Knee [employer] [id number] 09/11/2032 [id number] / 94-1044-421- 01 / [id number] [employer] Persona 11mm Knee Left 6-7 C-D Insert Articular Vivacit-E Sterile [id number] - H11-3693-823-0 1 - [id number] Implanted:Qty: 1 on 05/04/2023 by Michael Motta MD at [facility] Left: Knee [employer] [id number] 12/28/2025 [id number] / 55-1313-685- 11 / [id number] [employer] Persona 32mm Knee Component Patellar All Poly Latex Free [id number] - [id number] Implanted:Qty: 1 on 05/04/2023 by Michael Motta MD at [facility] [employer] 12/19/2027 [id number] / / [id number] [employer] Baseplate Tibial Knee Cemented Right Fixed Stemmed Persona Size C Tivanium [id number] - [id number] Implanted:Qty: 1 on 05/30/2024 by Michael Motta MD at [facility] Right: Knee [employer] [id number] 03/22/2033 [id number] / / [id number] [employer] Persona 29mm Knee Component Patellar All Poly Latex Free [id number] - [id number] Implanted:Qty: 1 on 05/30/2024 by Michael Motta MD at [facility] Right: Knee [employer] [id number] 12/18/2028 [id number] / / [id number] [employer] Persona 13mm Cruciate Retain Knee Right 6-7 Cd Insert Articular Latex Free [id number] - [id number] Implanted:Qty: 1 on 05/30/2024 by Michael Motta MD at [facility] Right: Patella [employer] [id number] 05/04/2025 [id number] / / [id number] [employer] Persona Cruciate Retaining Cemented Knee Right 7 Narrow Component [id number] - [id number] Implanted:Qty: 1 on 05/30/2024 by Michael Motta MD at [facility] Right: Knee [employer] [id number] 12/27/2033 [id number] / / [id number] [employer] Persona 14mm 30+ Mm Knee Tibia Taper Extension Stem [id number] - [id number] Implanted:Qty: 1 on 05/30/2024 by Michael Motta MD at [facility] Right: Knee [employer] [id number] 04/11/2034 [id number] / / [id number] Procedures Procedure Name Priority Date/Time Associated Diagnosis Comments POCT URINALYSIS DIPSTICK Routine 06/06/2025 9:45 AM WIRELESS WATCHER Left flank pain Dysuria COMPREHENSIVE METABOLIC PANEL Routine 05/27/2025 10:48 AM WIRELESS WATCHER Pyelonephritis POCT URINALYSIS DIPSTICK Routine 05/24/2025 9:43 AM WIRELESS WATCHER Dysuria URINE CULTURE Routine 05/24/2025 9:43 AM WIRELESS WATCHER Dysuria EGFR Routine 05/20/2025 5:36 AM WIRELESS WATCHER DIFFERENTIAL AUTO Routine 05/20/2025 5:3 6 AM WIRELESS WATCHER BASIC METABOLIC PANEL Routine 05/20/2025 5:36 AM WIRELESS WATCHER CBC WITH AUTO DIFFERENTIAL Routine 05/20/2025 5:36 AM WIRELESS WATCHER EGFR Routine 05/19/2025 5:44 AM WIRELESS WATCHER DIFFERENTIAL AUTO Routine 05/19/2025 5:4 4 AM WIRELESS WATCHER BASIC METABOLIC PANEL Routine 05/19/2025 5:44 AM WIRELESS WATCHER CBC WITH AUTO DIFFERENTIAL Routine 05/19/2025 5:44 AM WIRELESS WATCHER EGFR Routine 05/18/2025 12:31 PM WIRELESS WATCHER DIFFERENTIAL AUTO Routine 05/18/2025 12: 31 PM WIRELESS WATCHER BASIC METABOLIC PANEL Routine 05/18/2025 12:31 PM WIRELESS WATCHER CBC WITH AUTO DIFFERENTIAL Routine 05/18/2025 12:31 PM WIRELESS WATCHER BLOOD CULTURE STAT 05/17/2025 3:38 PM WIRELESS WATCHER BLOOD CULTURE STAT 05/17/2025 3:29 PM WIRELESS WATCHER SEPSIS LACTATE WITH REFLEX STAT 05/17/2025 2:[address] ABDOMEN PELVIS W CONTRAST ED 05/17/2025 2:14 PM WIRELESS WATCHER EGFR STAT 05/17/2025 12:23 PM WIRELESS WATCHER DIFFERENTIAL AUTO STAT 05/17/2025 12: 23 PM WIRELESS WATCHER LIPASE STAT 05/17/2025 12:23 PM WIRELESS WATCHER COMPREHENSIVE METABOLIC PANEL STAT 05/17/2025 12:23 PM WIRELESS WATCHER CBC WITH AUTO DIFFERENTIAL STAT 05/17/2025 12:23 PM WIRELESS WATCHER URINALYSIS, MICROSCOPIC ONLY STAT 05/17/2025 12:02 PM WIRELESS WATCHER URINE CULTURE STAT 05/17/2025 12:02 PM WIRELESS WATCHER URINALYSIS AND REFLEX TO MICROSCOPIC AND CULTURE STAT 05/17/2025 12:02 PM WIRELESS WATCHER XR ABDOMEN AP 1 VIEW Schedule Routine, Read Routine (OP Routine) 05/17/2025 8:39 AM WIRELESS WATCHER Calcium oxalate crystals in urine URINE CULTURE Routine 05/11/2025 12:11 PM WIRELESS WATCHER REFLEXIVE URINE CULTURE Routine 05/11/2025 12:11 PM WIRELESS WATCHER URINE CULTURE Routine 05/11/2025 12:11 PM WIRELESS WATCHER Dysuria URINALYSIS AND REFLEX TO MICROSCOPIC AND CULTURE Routine 05/11/2025 12:11 PM WIRELESS WATCHER Dysuria XR KNEE RIGHT 3 VIEWS Schedule Routine, Read Routine (OP Routine) 05/09/2025 10:51 AM WIRELESS WATCHER Chronic pain of right knee Status post [...] HEPATITIS C ANTIBODY Routine 06/04/2020 10:29 AM WIRELESS WATCHER Encounter for screening for other viral diseases Chronic fatigue from Last 3 Months or Most Recently Relevant to Health Maintenance Results * (ABNORMAL) POCT urinalysis dipstick (06/06/2025 9:45 AM WIRELESS WATCHER) Pathologist [facility] Glucose, ur, POC Negative Negative Bilirubin, ur, POC Negative Negative Ketones, ur, POC Negative Negative Specific Union, POC 1.015 1.003 - 1.030 Blood, ur, POC Trace(A) Negative pH, ur, POC 6.5 5.0 - 8.0 Protein, ur, POC Negative Negative Urobilinogen, urine, POC 0.2 0.2 - 1.0 mg/dL Nitrite, ur, POC Positive(A) Negative Leukocytes, ur, POC Moderate(A) Negative Lot Number [id number] Urine 06/06/2025 9:45 AM WIRELESS WATCHER Alee OSMAN POINT OF CARE TEST ORDERAB LES Edited Result - Final * (ABNORMAL) Comprehensive metabolic panel (05/27/2025 10:48 AM WIRELESS WATCHER) Pathologist [facility] Glucose 84 65 - 99 mg/dL [facility] Blood 05/27/2025 10:4 8 AM WIRELESS WATCHER 05/27/2025 10:48 AM WIRELESS WATCHER Alee OSMAN LAB BLOOD ORDERABLES Final Result [facility] [address] [place] [address] * (ABNORMAL) POCT urinalysis dipstick (05/24/2025 9:43 AM WIRELESS WATCHER) Glucose, ur, POC Negative Negative Bilirubin, ur, POC Negative Negative Ketones, ur, POC Negative Negative Specific Union, POC 1.025 1.003 - 1.030 Blood, ur, POC Trace(A) Negative pH, ur, POC 5.5 5.0 - 8.0 Protein, ur, POC Negative Negative Urobilinogen, urine, POC 0.2 0.2 - 1.0 mg/dL Nitrite, ur, POC Negative Negative Leukocytes, ur, POC Moderate(A) Negative Lot Number [id number] Urine 05/24/2025 9:43 AM WIRELESS WATCHER Alee OSMAN POINT OF CARE TEST ORDERAB LES Edited Result - Final * (ABNORMAL) Urine culture Urine, clean voided (05/24/2025 9:43 AM WIRELESS WATCHER) Urine culture (A) [facility] Comment: CULTURE, URINE, ROUTINE Micro Number: [id number] Test Status: Final Specimen Source: Urine, clean [...] Comments Urine, clean voided 05/24/2025 9:43 AM WIRELESS WATCHER 05/25/2025 1:21 AM WIRELESS WATCHER Alee OSMAN LAB MICROBIOLOGY - GENERAL ORDERABLES Final [facility] [address] [place] [address] * (ABNORMAL) eGFR (05/20/2025 5:36 AM WIRELESS WATCHER) eGFR 49(L) >=60 mL/min/1. 73 m2 Comment: [...] last reviewed 2021. Blood 05/20/2025 5:36 AM WIRELESS WATCHER 05/20/2025 5:49 AM WIRELESS WATCHER Alexy Reed MD LAB BLOOD ORDERABLES Final Result [facility] [address] [facility] Department [place] [address] * Differential, auto (05/20/2025 5:36 AM WIRELESS WATCHER) Pathologist [facility] Neutrophil abs 2.39 1.50 - 6.50 K/cumm Imm gran abs 0.01 0.00 - 0.10 K/cumm [facility] Lymphocyte abs 0.88 0.80 - 3.30 K/cumm [facility] Monocyte abs 0.46 0.20 - 0.80 K/cumm [facility] Eosinophil abs 0.25 0.00 - 0.50 K/cumm [facility] Basophil abs 0.02 0.00 - 0.10 K/cumm [facility] Neutrophil pct 59.7 % [facility] Comment: Interpretive Data Percent cell count reference ranges are not reported, since discordance with absolute values may lead to misinterpretation of CBC data. Current Interpretive Data was last revised on 2017. Imm gran pct 0.2 % [facility] Comment: Interpretive Data Percent cell count reference ranges are not reported, since discordance with absolute values may lead to misinterpretation of CBC data. Current Interpretive Data was last revised on 2017. Lymphocyte pct 21.9 % [facility] Comment: Interpretive Data Percent cell count reference ranges are not reported, since discordance with absolute values may lead to misinterpretation of CBC data. Current Interpretive Data was last revised on 2017. Monocyte pct 11.5 % [facility] Comment: Interpretive Data Percent cell count reference ranges are not reported, since discordance with absolute values may lead to misinterpretation of CBC data. Current Interpretive Data was last revised on 2017. Eosinophil pct 6.2 % [facility] Comment: Interpretive Data Percent cell count reference ranges are not reported, since discordance with absolute values may lead to misinterpretation of CBC data. Current Interpretive Data was last revised on 2017. Basophil pct 0.5 % [facility] Comment: Interpretive Data Percent cell count reference ranges are not reported, since discordance with absolute values may lead to misinterpretation of CBC data. Current Interpretive Data was last revised on 2017. Blood 05/20/2025 5:36 AM WIRELESS WATCHER 05/20/2025 5:49 AM WIRELESS WATCHER Alexy Reed MD LAB BLOOD ORDERABLES Final Result Performing Organization Address City/[facility]/ZIP Co de Phone Number VIANCA [address] [place] [email or web address] [address] * (ABNORMAL) CBC with auto differential (05/20/2025 5:36 AM WIRELESS WATCHER) WBC 4.01 3.80 - 9.90 K/cumm Hgb 11.0(L) 11.9 - 15.5 g/dL [facility] Hct 34.4(L) 35.6 - 45.5 % [facility] Plt 138(L) 150 - 400 K/cumm [facility] MPV 10.5 9.1 - 12.3 fL [facility] RBC 3.43(L) 3.90 - 5.20 M/cumm [facility] MCV 100.3(H) 81.3 - 96.4 fL [facility] MCH 32.1 27.1 - 33.3 pg [facility] MCHC 32.0(L) 32.3 - 35.7 g/dL [facility] RDW CV 13.9 11.1 - 14.9 % [facility] RDW SD 51.0(H) 35.7 - 48.1 fL [facility] NRBC abs 0.00 0.00 - 0.01 K/cumm [facility] Blood 05/20/2025 5:36 AM WIRELESS WATCHER 05/20/2025 5:49 AM WIRELESS WATCHER us Alexy Reed MD LAB BLOOD ORDERABLES Final Result Performing Organization Address City/[facility]/ZIP Co de Phone Number VIANCA [address] [place] [email or web address] [address] * (ABNORMAL) Basic metabolic panel (05/20/2025 5:36 AM WIRELESS WATCHER) [facility] Sodium 143 135 - 145 mmol/L Potassium, pl 3.6 3.3 - 4.9 mmol/L [facility] Chloride 112(H) 97 - 110 mmol/L [facility] CO2 22 22 - 32 mmol/L [facility] Anion gap 9 2 - 15 mmol/L [facility] BUN 22 6 - 25 mg/dL [facility] Creatinine 1.19(H) 0.60 - 1.10 mg/dL [facility] Glucose 92 70 - 199 mg/dL [facility] Comment: Interpretive Data Fasting glucose >/= [...] 2022. Calcium 8.9 8.5 - 10.3 mg/dL [facility] Blood 05/20/2025 5:36 AM WIRELESS WATCHER 05/20/2025 5:49 AM WIRELESS WATCHER Alexy Reed MD LAB BLOOD ORDERABLES Final Result [facility] [address] [facility] Department [place] [address] * (ABNORMAL) eGFR (05/19/2025 5:44 AM WIRELESS WATCHER) [facility] eGFR 49(L) >=60 mL/min/1. 73 m2 Comment: [...] last reviewed 2021. Blood 05/19/2025 5:44 AM WIRELESS WATCHER 05/19/2025 6:33 AM WIRELESS WATCHER Alexy Reed MD LAB BLOOD ORDERABLES Final Result [facility] [address] [facility] Department of Laboratories [place], [place] [id number] * Differential, auto (05/19/2025 5:44 AM WIRELESS WATCHER) Neutrophil abs 2.38 1.50 - 6.50 K/cumm Imm gran abs 0.01 0.00 - 0.10 K/cumm [facility] Lymphocyte abs 0.84 0.80 - 3.30 K/cumm [facility] Monocyte abs 0.39 0.20 - 0.80 K/cumm [facility] Eosinophil abs 0.23 0.00 - 0.50 K/cumm [facility] Basophil abs 0.02 0.00 - 0.10 K/cumm [facility] Neutrophil pct 61.5 % [facility] Comment: Interpretive Data Percent cell count reference ranges are not reported, since discordance with absolute values may lead to misinterpretation of CBC data. Current Interpretive Data was last revised on 2017. Imm gran pct 0.3 % [facility] Comment: Interpretive Data Percent cell count reference ranges are not reported, since discordance with absolute values may lead to misinterpretation of CBC data. Current Interpretive Data was last revised on 2017. Lymphocyte pct 21.7 % [facility] Comment: Interpretive Data Percent cell count reference ranges are not reported, since discordance with absolute values may lead to misinterpretation of CBC data. Current Interpretive Data was last revised on 2017. Monocyte pct 10.1 % [facility] Comment: Interpretive Data Percent cell count reference ranges are not reported, since discordance with absolute values may lead to misinterpretation of CBC data. Current Interpretive Data was last revised on 2017. Eosinophil pct 5.9 % [facility] Comment: Interpretive Data Percent cell count reference ranges are not reported, since discordance with absolute values may lead to misinterpretation of CBC data. Current Interpretive Data was last revised on 2017. Basophil pct 0.5 % [facility] Comment: Interpretive Data Percent cell count reference ranges are not reported, since discordance with absolute values may lead to misinterpretation of CBC data. Current Interpretive Data was last revised on 2017. Blood 05/19/2025 5:44 AM WIRELESS WATCHER 05/19/2025 6:33 AM WIRELESS WATCHER Alexy Reed MD LAB BLOOD ORDERABLES Final Result [place] [address] [facility] Department [place] [address] * (ABNORMAL) CBC with auto differential (05/19/2025 5:44 AM WIRELESS WATCHER) WBC 3.87 3.80 - 9.90 K/cumm Hgb 11.4(L) 11.9 - 15.5 g/dL [facility] Hct 35.7 35.6 - 45.5 % [facility] Plt 149(L) 150 - 400 K/cumm [facility] MPV 11.0 9.1 - 12.3 fL [facility] RBC 3.51(L) 3.90 - 5.20 M/cumm [facility] MCV 101.7(H) 81.3 - 96.4 fL [facility] MCH 32.5 27.1 - 33.3 pg [facility] MCHC 31.9(L) 32.3 - 35.7 g/dL [facility] RDW CV 13.8 11.1 - 14.9 % [facility] RDW SD 51.5(H) 35.7 - 48.1 fL [facility] NRBC abs 0.00 0.00 - 0.01 K/cumm [facility] Blood 05/19/2025 5:44 AM WIRELESS WATCHER 05/19/2025 6:33 AM WIRELESS WATCHER Alexy Reed MD LAB BLOOD ORDERABLES Final Result [address] [place] [email or web address] [address] * (ABNORMAL) Basic metabolic panel (05/19/2025 5:44 AM WIRELESS WATCHER) Pathologist [facility] Sodium 141 135 - 145 mmol/L Potassium, pl 4.0 3.3 - 4.9 mmol/L [facility] Chloride 110 97 - 110 mmol/L [facility] CO2 22 22 - 32 mmol/L [facility] Anion gap 9 2 - 15 mmol/L [facility] BUN 26(H) 6 - 25 mg/dL [facility] Creatinine 1.20(H) 0.60 - 1.10 mg/dL [facility] Glucose 89 70 - 199 mg/dL [facility] Comment: Interpretive Data Fasting glucose >/= [...] 2022. Calcium 9.0 8.5 - 10.3 mg/dL [facility] Blood 05/19/2025 5:44 AM WIRELESS WATCHER 05/19/2025 6:33 AM WIRELESS WATCHER Alexy Reed MD LAB BLOOD ORDERABLES Final Result [address] [place] [address] * (ABNORMAL) eGFR (05/18/2025 12:31 PM WIRELESS WATCHER) [facility] eGFR 47(L) >=60 mL/min/1. 73 m2 Comment: [...] reviewed 2021. Blood 05/18/2025 12:3 1 PM WIRELESS WATCHER 05/18/2025 12:44 PM WIRELESS WATCHER Alexy Reed MD LAB BLOOD ORDERABLES Final Result [facility] [address] [facility] Department [place] [address] * Differential, auto (05/18/2025 12:31 PM WIRELESS WATCHER) [facility] Neutrophil abs 2.88 1.50 - 6.50 K/cumm Imm gran abs 0.01 0.00 - 0.10 K/cumm [facility] Lymphocyte abs 1.00 0.80 - 3.30 K/cumm [facility] Monocyte abs 0.48 0.20 - 0.80 K/cumm [facility] Eosinophil abs 0.27 0.00 - 0.50 K/cumm [facility] Basophil abs 0.02 0.00 - 0.10 K/cumm [facility] Neutrophil pct 61.8 % [facility] Comment: Interpretive Data Percent cell count reference ranges are not reported, since discordance with absolute values may lead to misinterpretation of CBC data. Current Interpretive Data was last revised on 2017. Imm gran pct 0.2 % [facility] Comment: Interpretive Data Percent cell count reference ranges are not reported, since discordance with absolute values may lead to misinterpretation of CBC data. Current Interpretive Data was last revised on 2017. Lymphocyte pct 21.5 % [facility] Comment: Interpretive Data Percent cell count reference ranges are not reported, since discordance with absolute values may lead to misinterpretation of CBC data. Current Interpretive Data was last revised on 2017. Monocyte pct 10.3 % [facility] Comment: Interpretive Data Percent cell count reference ranges are not reported, since discordance with absolute values may lead to misinterpretation of CBC data. Current Interpretive Data was last revised on 2017. Eosinophil pct 5.8 % [facility] Comment: Interpretive Data Percent cell count reference ranges are not reported, since discordance with absolute values may lead to misinterpretation of CBC data. Current Interpretive Data was last revised on 2017. Basophil pct 0.4 % [facility] Comment: Interpretive Data Percent cell count reference ranges are not reported, since discordance with absolute values may lead to misinterpretation of CBC data. Current Interpretive Data was last revised on 2017. Blood 05/18/2025 12:3 1 PM WIRELESS WATCHER 05/18/2025 12:44 PM WIRELESS WATCHER Alexy eRed MD LAB BLOOD ORDERABLES Final Result [facility] [address] [facility] Department [place] [address] * (ABNORMAL) CBC with auto differential (05/18/2025 12:31 PM WIRELESS WATCHER) WBC 4.66 3.80 - 9.90 K/cumm Hgb 11.5(L) 11.9 - 15.5 g/dL [facility] Hct 35.0(L) 35.6 - 45.5 % [facility] Plt 183 150 - 400 K/cumm [facility] MPV 10.1 9.1 - 12.3 fL [facility] RBC 3.53(L) 3.90 - 5.20 M/cumm [facility] MCV 99.2(H) 81.3 - 96.4 fL [facility] MCH 32.6 27.1 - 33.3 pg [facility] MCHC 32.9 32.3 - 35.7 g/dL [facility] RDW CV 14.1 11.1 - 14.9 % [facility] RDW SD 50.9(H) 35.7 - 48.1 fL [facility] NRBC abs 0.00 0.00 - 0.01 K/cumm [facility] Blood 05/18/2025 12:3 1 PM WIRELESS WATCHER 05/18/2025 12:44 PM WIRELESS WATCHER Alexy Reed MD LAB BLOOD ORDERABLES Final Result [facility] [address] [facility] Department [place] [address] * (ABNORMAL) Basic metabolic panel (05/18/2025 12:31 PM WIRELESS WATCHER) Sodium 141 135 - 145 mmol/L Potassium, pl 4.2 3.3 - 4.9 mmol/L [facility] Chloride 112(H) 97 - 110 mmol/L [facility] CO2 19(L) 22 - 32 mmol/L [facility] Anion gap 10 2 - 15 mmol/L [facility] BUN 30(H) 6 - 25 mg/dL [facility] Creatinine 1.25(H) 0.60 - 1.10 mg/dL [facility] Glucose 96 70 - 199 mg/dL [facility] Comment: Interpretive Data Fasting glucose >/= [...] Calcium 9.2 8.5 - 10.3 mg/dL [facility] Blood 05/18/2025 12:3 1 PM WIRELESS WATCHER 05/18/2025 12:44 PM WIRELESS WATCHER Alexy Reed MD LAB BLOOD ORDERABLES Final Result [facility] [address] [facility] [place] [address] * Blood culture Blood Peripheral (05/17/2025 3:38 PM WIRELESS WATCHER) Report Final Report: No growth Comment:Testing performed by : [facility], [address] [facility] [place]., [address] Blood (Peripheral) 05/17/2025 3:38 PM WIRELESS WATCHER 05/17/2025 7:07 PM WIRELESS WATCHER Narrative [facility] - 05/22/2025 7:00 AM WIRELESS WATCHER From a different site than #1. Draw [...] performance characteristics have been verified by the [facility] Microbiology Laboratory. For questions about this culture, contact the Microbiology Laboratory at [phone]. Interpretive data was last revised on 24. Flora Maco OSMAN LAB MICROBIOLOGY - GENERAL ORDER KELVIN Final Result Performing Organization Address [facility] Co de Phone Number [facility] [email or web address] [address] * Blood culture Blood Peripheral (05/17/2025 3:29 PM WIRELESS WATCHER) Report Final Report: No growth Comment:Testing performed by : [facility], [address] [place]., [address] Blood (Peripheral) 05/17/2025 3:29 PM WIRELESS WATCHER 05/17/2025 7:07 PM WIRELESS WATCHER Narrative [facility] - 05/22/2025 7:00 AM WIRELESS WATCHER Draw Blood cultures before administration of Antibiotics [...] performance characteristics have been verified by the [facility] Microbiology Laboratory. For questions about this culture, contact the Microbiology Laboratory at [phone]. Interpretive data was last revised on 24. Flora Maco OSMAN LAB MICROBIOLOGY - GENERAL ORDER KELVIN Final Result Performing Organization Address City/[facility]/ZIP Co de Phone Number [facility] [email or web address] [address] * Sepsis Lactate w/ Reflex (05/17/2025 2:22 PM WIRELESS WATCHER) Sepsis Lactate 0.7 0.7 - 2.0 mmol/L Blood 05/17/2025 2:22 PM WIRELESS WATCHER 05/17/2025 2:28 PM WIRELESS WATCHER us Flora OSMAN LAB BLOOD ORDERABLES Final Resul t [facility] [address] [facility] Department [place] [address] * CT Abdomen Pelvis W Contrast (05/17/2025 2:14 PM WIRELESS WATCHER) Anatomical Region Laterality Modality Body N/A Computed Tomogra phy 05/17/2025 2:27 PM WIRELESS WATCHER Impressions 05/17/2025 2:27 PM WIRELESS WATCHER No acute findings. Electronically signed by: Diogenes York M.D. Narrative 05/17/2025 2:27 PM WIRELESS WATCHER EXAMINATION: CT ABDOMEN PELVIS W CONTRAST ORDERING [...] findings. Electronically signed by: Diogenes York M.D. us Cindi Jaimes MD IM CT PROCEDURES Final Result * (ABNORMAL) eGFR (05/17/2025 12:23 PM WIRELESS WATCHER) eGFR 48(L) >=60 mL/min/1. 73 m2 Comment: [...] reviewed 2021. Blood 05/17/2025 12:2 3 PM WIRELESS WATCHER 05/17/2025 12:29 PM WIRELESS WATCHER us Titus Garcia MD LAB BLOOD ORDERABLES Final Resul t [facility] [address] [facility] Department [place] [address] * Differential, auto (05/17/2025 12:23 PM WIRELESS WATCHER) Neutrophil abs 4.49 1.50 - 6.50 K/cumm Imm gran abs 0.02 0.00 - 0.10 K/cumm [facility] Lymphocyte abs 0.96 0.80 - 3.30 K/cumm [facility] Monocyte abs 0.51 0.20 - 0.80 K/cumm [facility] Eosinophil abs 0.15 0.00 - 0.50 K/cumm [facility] Basophil abs 0.04 0.00 - 0.10 K/cumm [facility] Neutrophil pct 72.8 % [facility] Comment: Interpretive Data Percent cell count reference ranges are not reported, since discordance with absolute values may lead to misinterpretation of CBC data. Current Interpretive Data was last revised on 2017. Imm gran pct 0.3 % [facility] Comment: Interpretive Data Percent cell count reference ranges are not reported, since discordance with absolute values may lead to misinterpretation of CBC data. Current Interpretive Data was last revised on 2017. Lymphocyte pct 15.6 % [facility] Comment: Interpretive Data Percent cell count reference ranges are not reported, since discordance with absolute values may lead to misinterpretation of CBC data. Current Interpretive Data was last revised on 2017. Monocyte pct 8.3 % [facility] Comment: Interpretive Data Percent cell count reference ranges are not reported, since discordance with absolute values may lead to misinterpretation of CBC data. Current Interpretive Data was last revised on 2017. Eosinophil pct 2.4 % [facility] Comment: Interpretive Data Percent cell count reference ranges are not reported, since discordance with absolute values may lead to misinterpretation of CBC data. Current Interpretive Data was last revised on 2017. Basophil pct 0.6 % [facility] Comment: Interpretive Data Percent cell count reference ranges are not reported, since discordance with absolute values may lead to misinterpretation of CBC data. Current Interpretive Data was last revised on 2017. Blood 05/17/2025 12:2 3 PM WIRELESS WATCHER 05/17/2025 12:29 PM WIRELESS WATCHER us Titus Garcia MD LAB BLOOD ORDERABLES Final Resul t [place] [address] [facility] Department [place] [address] * (ABNORMAL) CBC with auto differential (05/17/2025 12:23 PM WIRELESS WATCHER) WBC 6.17 3.80 - 9.90 K/cumm Hgb 12.5 11.9 - 15.5 g/dL [facility] Hct 38.3 35.6 - 45.5 % [facility] Plt 203 150 - 400 K/cumm [facility] MPV 10.3 9.1 - 12.3 fL [facility] RBC 3.86(L) 3.90 - 5.20 M/cumm [facility] MCV 99.2(H) 81.3 - 96.4 fL [facility] MCH 32.4 27.1 - 33.3 pg [facility] MCHC 32.6 32.3 - 35.7 g/dL [facility] RDW CV 13.8 11.1 - 14.9 % [facility] RDW SD 50.3(H) 35.7 - 48.1 fL [facility] NRBC abs 0.00 0.00 - 0.01 K/cumm [facility] Blood Venous blood specimen / Unknown 05/17/2025 12:23 PM WIRELESS WATCHER 05/17/2025 12:29 PM WIRELESS WATCHER us Titus Garcia MD LAB BLOOD ORDERABLES Final Resul t Performing Organization Address City/[facility] Co de Phone Number [address] [address] * Lipase (05/17/2025 12:23 PM WIRELESS WATCHER) [facility] Lipase 14 10 - 99 Units/L Blood Venous blood specimen / Unknown 05/17/2025 12:23 PM WIRELESS WATCHER 05/17/2025 12:29 PM WIRELESS WATCHER Titus Garcia MD LAB BLOOD ORDERABLES Final Resul t Performing Organization Address [facility] de Phone Number [address] [address] * (ABNORMAL) Comprehensive metabolic panel (05/17/2025 12:23 PM WIRELESS WATCHER) [facility] Sodium 140 135 - 145 mmol/L Potassium, pl 4.2 3.3 - 4.9 mmol/L [facility] Chloride 111(H) 97 - 110 mmol/L [facility] CO2 18(L) 22 - 32 mmol/L [facility] Anion gap 11 2 - 15 mmol/L [facility] BUN 28(H) 6 - 25 mg/dL [facility] Creatinine 1.22(H) 0.60 - 1.10 mg/dL [facility] Glucose 104 70 - 199 mg/dL [facility] Comment: Interpretive Data Fasting glucose >/= [...] 2022. Calcium 9.3 8.5 - 10.3 mg/dL [facility] Bilirubin, total 0.4 0.1 - 1.2 mg/dL [facility] Protein, pl 6.8 6.5 - 8.5 g/dL [facility] Albumin 3.9 3.5 - 5.0 g/dL [facility] Alk phos 131(H) 40 - 130 Units/L [facility] ALT 41 7 - 45 Units/L [facility] AST 41 10 - 45 Units/L [facility] Blood Venous blood specimen / Unknown 05/17/2025 12:23 PM WIRELESS WATCHER 05/17/2025 12:29 PM WIRELESS WATCHER us Titus Garcia MD LAB BLOOD ORDERABLES Final Resul t [facility] [address] [facility] Department [place] [address] * (ABNORMAL) Urinalysis reflex to microscopic and culture Urine (05/17/2025 12:02 PM WIRELESS WATCHER) Color, ur Other(A) Yellow Clarity, ur Cloudy(A) Clear [facility] Specific gravity, ur 1.014 1.003 - 1.030 [facility] pH, urine 5.0 [facility] Comment: Interpretive Data U rine pH is affected by diet, medications, systemic acid-base disturbances, and renal tubular function. pH may affect urinary stone formation. For example, urine pH below 6.0 may help reduce the tendency for calcium phosphate stones and pH greater than 6.0 may reduce the tendency for uric acid stone formation. Source: [facility] Current Interpretive Data was last revised on 2017 Protein, ur ql 1+(A) Negative [facility] Glucose, ur ql Negative Negative [facility] Ketones, ur Negative Negative [facility] Bilirubin, ur Negative Negative [facility] Blood, ur 3+(A) Negative [facility] Urobilinogen, ur <2.0 <2.0 mg/dL [facility] Nitrite, ur Positive(A) Negative [facility] Leukocyte esterase, ur 4+(A) Negative [facility] UA reflex comment Reflex to microscopic UA will be performed. [facility] Urine 05/17/2025 12:0 2 PM WIRELESS WATCHER 05/17/2025 12:06 PM WIRELESS WATCHER Titus Garcia MD LAB MICROBIOLOGY - GENERAL ORDER KELVIN Final Result Performing Organization Address [facility] de Phone Number VIANCA [address] [address] * (ABNORMAL) Urinalysis, microscopic only (05/17/2025 12:02 PM WIRELESS WATCHER) WBC, ur >50(A) 0 - 5 /HPF RBC, ur >50(A) 0 - 2 /HPF [facility] Epithelial cells, squamous, ur 11-20(A) 0 - 5 /HPF [facility] Comment:Suggestive of contam ination. Consider recollection by clean catch. Bacteria, ur 1+(A) [facility] Mucous, ur Present(A) [facility] Culture Reflex Comment Reflex to urine culture will be performed. [facility] Urine 05/17/2025 12:0 2 PM WIRELESS WATCHER 05/17/2025 12:06 PM WIRELESS WATCHER Titus Garcia MD LAB URINE ORDERABLES Final Resul t Performing Organization Address [facility] de Phone Number VIANCA [address] [address] * (ABNORMAL) Urine culture Urine (05/17/2025 12:02 PM WIRELESS WATCHER) Report Final Report: Greater than or equal to 100,000 colonies/mL of Klebsiella pneumoniae Plus growth of clinically insignificant bacterial ankita. (.) Comment:Testing performed by : [facility], [address] [facility], [place]., [address] Organism KLEBSIELLA PNEUMONIAE [facility] Organism PLUS GROWTH OF CLINICALLY INSIGNIFICANT ANKITA. [facility] Urine 05/17/2025 12:0 2 PM WIRELESS WATCHER 05/17/2025 5:35 PM WIRELESS WATCHER Narrative [facility] - 05/19/2025 9:51 AM WIRELESS WATCHER Urine culture reflexed based upon urinalysis results. Testing performed by [facility] Microbiology Laboratory ([phone]) Organism Antibiotic Method Susceptibility Klebsiella pneumoniae Ampicillin [...] Cindi Jaimes MD LAB MICROBIOLOGY - GENE [facility] ORDERABLES Final Result [facility] [address] [facility] Department [place] [address] * XR Abdomen 1 View AP (05/17/2025 8:39 AM WIRELESS WATCHER) Anatomical Region Laterality Modality Body, Abdomen N/A Computed Radiogr aphy 05/17/2025 11:5 6 AM WIRELESS WATCHER Impressions 05/17/2025 11:56 AM WIRELESS WATCHER No radiographic evidence of acute abdominopelvic process with chronic findings as above. Electronically signed by: Rui Cifuentes M.D. Narrative 05/17/2025 11:56 AM WIRELESS WATCHER EXAMINATION: XR ABDOMEN AP 1 VIEW HISTORY: [...] lower pole of the left kidney potentially customer engagement representative nonobstructing renal calculus. No acute osseous [...] lower pole of the left kidney potentially customer engagement representative nonobstructing renal calculus. No acute osseous abnormality. IMPRESSION: No radiographic evidence of acute abdominopelvic process with chronic findings as above. Electronically signed by: Rui Cifuentes M.D. Alee OSMAN IMG XR PROCEDURES Final Re sult * REFLEXIVE URINE CULTURE (05/11/2025 12:11 PM WIRELESS WATCHER) Urine culture [facility] Comment:CULTURE INDICATED - RESULTS TO FOLLOW 05/11/2025 12:1 1 PM WIRELESS WATCHER 05/11/2025 12:12 PM WIRELESS WATCHER Alee OSMAN LAB MICROBIOLOGY - GENERAL ORDERABLES Final Result [facility] [address] [place] [address] * (ABNORMAL) Urinalysis reflex to microscopic and culture Urine (05/11/2025 12:11 PM WIRELESS WATCHER) Color, ur YELLOW YELLOW [facility] Appearance, ur CLOUDY(A) CLEAR [facility] Specific gravity 1.012 1.001 - 1.035 [facility] pH, ur < OR = 5.0(A) 5.0 - 8.0 [facility] Glucose, ur NEGATIVE NEGATIVE [facility] Bilirubin, ur NEGATIVE NEGATIVE [facility] Ketones, ur NEGATIVE NEGATIVE [facility] Blood, ur NEGATIVE NEGATIVE [facility] Protein, ur, quant NEGATIVE NEGATIVE [facility] Nitrites, ur NEGATIVE NEGATIVE [facility] Leukocyte esterase, ur TRACE(A) NEGATIVE [facility] WBC, ur 0-5 < OR = 5 /HPF [facility] RBC, ur NONE SEEN < OR = 2 /HPF [facility] Epithelial cells, squamous, ur 0-5 < OR = 5 /HPF [facility] Bacteria, ur, quant FEW(A) NONE SEEN /HPF [facility] Calcium oxalate crystals, ur MANY(A) NONE OR FEW /HPF [facility] Hyaline cast NONE SEEN NONE SEEN /LPF [facility] Note [facility] Comment: This urine was analyzed for the presence of WBC, RBC, bacteria, casts, and other formed elements. Only those elements seen were reported. Urine 05/11/2025 12:1 1 PM WIRELESS WATCHER 05/11/2025 12:12 PM WIRELESS WATCHER Alee OSMAN LAB MICROBIOLOGY - GENERAL ORDERABLES Final Result Performing Organization Address [facility] Co de Phone Number [place] [address] [place] [address] * Urine culture (05/11/2025 12:11 PM WIRELESS WATCHER) Urine culture [facility] Comment: CULTURE, URINE, ROUTINE Micro Number: [id number] Test Status: Final Specimen Source: Urine Specimen Quality: Adequate Result: No Growth 05/11/2025 12:1 1 PM WIRELESS WATCHER 05/11/2025 12:12 PM WIRELESS WATCHER Alee OSMAN LAB MICROBIOLOGY - GENERAL ORDERABLES Final Result Performing Organization Address City/[facility] Co de Phone Number [facility] [address] [place] [address] * Urine culture Urine, clean voided (05/11/2025 12:11 PM WIRELESS WATCHER) Urine culture [facility] Comment: CULTURE, URINE, ROUTINE Micro Number: [id number] Test Status: Final Specimen Source: Urine, clean catch Specimen Quality: Adequate Result: Non-viable for identification and susceptibility testing. Urine, clean voided 05/11/2025 12:11 PM WIRELESS WATCHER 05/11/2025 12:12 PM WIRELESS WATCHER Alee OSMAN LAB MICROBIOLOGY - GENERAL ORDERABLES Final Result [facility] [address] [place] [address] * XR Knee Right 3 Views (05/09/2025 10:51 AM WIRELESS WATCHER) Anatomical Region Laterality Modality Lower Extremities, Knee Right Computed Radiography 05/09/2025 1:07 PM WIRELESS WATCHER Impressions 05/09/2025 1:07 PM WIRELESS WATCHER 1. Right total knee arthroplasty in near-anatomic alignment. Electronically signed by: Micah Comer M.D. Narrative 05/09/2025 1:07 PM WIRELESS WATCHER EXAMINATION: XR KNEE RIGHT 3 VIEWS HISTORY: [...] LAB BLOOD ORDERABLES Final Result [facility] [address] [address] * (ABNORMAL) CBC with auto differential (04/26/2025 12:53 PM CDT) WBC 3.6(L) 3.8 - 10.8 Thousand/u L [...] BLOOD ORDERABLES Final Result Performing Organization Address [facility]/ZIP Co de Phone Number [facility] [address] [place] [address] * Vitamin D 25 hydroxy (04/26/2025 12:53 PM CDT) Pathologist [facility] Vitamin D 25-OH 48 30 - 100 [...] D, (D2,D3), LC/MS/MS is recommended: order code 28864 (patients >2yrs). See Note 1 Note 1 For additional information, please refer to http://education.DataGravity/faq/UHZ265 (This link is being provided for informational/ educational purposes only.) Blood 04/26/2025 12:5 3 PM CDT 04/26/2025 12:54 PM CDT Narrative [facility] - 04/27/2025 7:00 AM CDT FASTING:NO FASTING: NO Alee OSMAN LAB BLOOD ORDERABLES Final Result Performing Organization Address City/[facility]/ZIP Co de Phone Number [facility] [address] [place] [address] * TSH (04/26/2025 12:53 PM CDT) [facility] TSH 1.01 0.40 - 4.50 mIU/L [facility] Blood 04/26/2025 12:5 3 PM CDT 04/26/2025 12:54 PM CDT Narrative [facility] - 04/27/2025 7:00 AM CDT FASTING:NO FASTING: NO Alee OSMAN LAB BLOOD ORDERABLES Final Result Performing Organization Address [facility]/ZIP Co de Phone Number [facility] [address] [place] [address] * Ferritin (04/26/2025 12:53 PM CDT) Pathologist [facility] Ferritin 128 16 - 288 ng/mL [facility] 04/26/2025 12:5 3 PM CDT 04/26/2025 12:54 PM CDT Narrative [facility] - 04/27/2025 7:00 AM CDT FASTING:NO FASTING: NO Alee OSMAN LAB BLOOD ORDERABLES Final Result Performing Organization Address [facility] de Phone Number [facility] [address] [place] [address] * (ABNORMAL) Vitamin B12 (04/26/2025 12:53 PM CDT) Pathologist [facility] Vitamin B12 1,606(H) 200 - 1,100 pg/mL [facility] Blood 04/26/2025 12:5 3 PM CDT 04/26/2025 12:54 PM CDT Narrative [facility] - 04/27/2025 7:00 AM CDT FASTING:NO FASTING: NO Alee OSMAN LAB BLOOD ORDERABLES Final Result Performing Organization Address [facility] de Phone Number [facility] [address] [place] [address] * Comprehensive metabolic panel (04/26/2025 12:53 PM [...] LAB BLOOD ORDERABLES Final Result [facility] [address] [address] * (ABNORMAL) POCT urinalysis dipstick (04/25/2025 8:45 AM CDT) Glucose, ur, POC Negative Negative Bilirubin, ur, POC Negative Negative Ketones, ur, POC Negative Negative Specific [place], POC 1.025 1.003 - 1.030 Blood, ur, POC Small(A) Negative pH, ur, POC 7.0 5.0 - 8.0 Protein, ur, POC 30.(A) Negative Urobilinogen, urine, POC 0.2 0.2 - 1.0 mg/dL Nitrite, ur, POC Positive(A) Negative Leukocytes, ur, POC Small(A) Negative Lot Number [id number] Urine 04/25/2025 8:45 AM CDT Alee OSMAN POINT OF CARE TEST ORDERAB LES Edited Result - Final * (ABNORMAL) Urine culture Urine, clean voided (04/25/2025 8:39 AM CDT) Urine culture (A) [facility] Comment: CULTURE, URINE, ROUTINE Micro Number: [id number] Test Status: Final Specimen Source: Urine, clean [...] 8:39 AM CDT 04/25/2025 11:29 PM CDT us Alee OSMAN LAB MICROBIOLOGY - GENERAL ORDERABLES Final Result [facility] [address] [place] [address] * (ABNORMAL) CBC with auto differential (03/27/2025 2:22 PM CDT) Pathologist [facility] WBC 4.0 3.8 - 10.8 Thousand/u L [...] BLOOD ORDERABLES Vy l Result [facility] [address] [place] [address] * Comprehensive metabolic panel (03/27/2025 2:22 PM CDT) Pathologist [facility] Glucose 81 65 - 99 mg/dL [facility] [...] BLOOD ORDERABLES Vy l Result [facility] [address] [place] [address] * Colonoscopy (02/22/2025 8:21 AM CDT) Anatomical Region Laterality Modality Other Narrative Procedure Note Timi Cox MD - 02/22/2025 8:21 AM CDT [facility] Patient Name: Nohemy Roy Procedure Date: 02/22/2025 8:21 AM Date of : 1955 Admit Type: Outpatient Age: 69 Gender: Female Attending MD: Timi Cox M.D., Room: [facility] ENDOSCOPY ROOM 02 Note Status: Finalized Procedure: [...] The scope was passed under direct vision.The [id number] Colonoscope was introducedthrough the anus and advanced [...] On: 02/22/2025 8:21 AM Recognized by the [place] [employer] for promoting quality [...] Bone mineral density was performed on a [employer] Discovery Densitometer. Based on machine cross-calibration and [...] by the International Society of Clinical Densitometry. [id number] Abisai Martinez MD [facility] DXA PROCEDURES Final Resul t * Screening Mammogram Bilateral W Dyllan (10/04/2024 11:00 AM CDT) Anatomical Region Laterality Modality Breast Bilateral Mammography Impressions 10/04/2024 11:00 AM CDT No mammographic evidence of malignancy Recommend routine screening mammogram in one year BI-RADS Category 2: Benign Findings Alee OSMAN [facility] MAMMO PROCEDURES Final Result * Hepatitis C antibody (06/04/2020 10:29 AM WIRELESS WATCHER) Hep C Ab NON-REACTI VE NON-REACT ALEXYS [facility] SIGNAL TO CUT-OFF 0.02 <1.00 [facility] Comment: HCV antibody was non-reactive. There is no laboratory evidence of HCV infection. In most cases, no further action is required. However, if recent HCV exposure is suspected, a test for HCV RNA (test code 98071) is suggested. For additional information please refer to http://education.Sun Number.Tap2print/faq/XOA27b0 (This link is being provided for informational/ educational purposes only.) Blood specimen (specimen) 06/04/2020 10:29 AM WIRELESS WATCHER 06/04/2020 10:30 AM WIRELESS WATCHER Sangita OSMAN LAB MICROBIOLOGY - GENERA L ORDERABLES Final Result [facility] [address] [place] [address] from Last 3 Months or Most Recently Relevant to Health Maintenance Insurance [employer] MEDICARE [facility] Address: [id number] [place] [address] [employer] MED[employer] [facility] Address: [facility] [address] [place] [address] [facility] MED[facility] Address: [address] [address] Advance Directives For more information, please contact: [phone] Documents on File Type Date Recorded Patient Director Of Payroll Expl anation ADVANCE DIRECTIVE 05/17/2024 2:13 PM Yonis r of Sound Controller-Medical * Full Code (Latest Code Status on [...] 2:33 PM 05/07/2023 3:07 AM Care Teams Screen Printing 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 Helper Relationship Specialty Start Date End Date Alee Elizondo PA [address] [facility] [address] [place] [address] PCP - General Internal Medicine 07/05/23 Sharan Linton MD Referring Physician Gastroenterology 10/31/18 Martha Starks MD Consulting Physician Cardiology 12/24/20 Shama Hines MD 4700 [facility] [address]IN [address] [address] Consulting Physician Pain Management 01/19/21 Artis Grewal MD [address] [place] [address] Consulting Physician Rheumatology 01/30/21 Amy Mayes NP [address] [address] Nurse Practitioner Cardiovascular Disease 04/20/24 Shailesh Dunn MD [address] [address] Consulting Physician Pulmonary Disease 04/20/24 Sangita Farrar PA [address] [place] [address] Physician Insurance Licensing Supervisor Rheumatology 05/15/24 Timi Cox MD [address] [id number] [place] [address] Surgeon Colon and Rectal Surgery 01/08/25 Teofilo Gongora MD [address] [id number] [place] [address] Urologist Urology 01/08/25
--- OUTSIDE RECORDS SUMMARY | 2025-06-07 21:29 | XMS_ITS | Encounter Summary ---
Author Organization [facility] Facility Care Team Providers Care Knife Edger Name Role Phone Alee Elizondo Primary Care Provider + [phone] Sharan Linton MD Unavailable +[phone] Taisha Gomez MD Unavailable +[phone] Parag Soto MD Unavailable +[phone] RaziaMartha singh MD Unavailable +[phone] Puneet Uribe MD Unavailable +[phone] Shama Hines MD Unavailable Artis Grewal MD Unavailable +[phone] Harrison Pena RN Unavailable +[phone] Nafisa Gregg RN Unavailable +[phone] Tho Kelsey MD Primary Care Provider [phone] Alee Elizondo Primary Care Provider + [phone] Amy Mayes NP Unavailable +[phone] Shailesh Dunn MD Unavailable [phone] Sangita Farrar Unavailable +[phone] Timi Cox MD Unavailable [phone] Teofilo Gongora MD Unavailable +[phone] Allie East LPN Unavailable Encounter Details Date Type Department Care Team (Latest Contact Info) Description 09/14/2016 Orders Only [facility] CLINCONV Provider, MD Tania [address] [place] [address] Social History Tobacco Use Types Packs/Day Years Used Date Smoking Tobacco: Never Alcohol Use Standard Drinks/Week Comments No 0 (1 standard drink = 0.6 oz pur e alcohol) Comments Unknown Sex and Gender Information Value Date Recorded Sex Assigned at Not on file Legal Sex Female 8:04 PM VIDEO CONTROL ENGINEER Gender Identity Female 02/15/2020 6:08 PM CDT Sexual Orientation Not on file documented as of this encounter Plan of Treatment Not on file documented as of this encounter Procedures Procedure Name Priority Date/Time Associated Diagnosis Comments PROCEDURE - RESULT 09/09/2016 12 :00 AM VIDEO CONTROL ENGINEER documented in this encounter Results * PROCEDURE - RESULT (09/09/2016 12:00 AM VIDEO CONTROL ENGINEER) Narrative 09/09/2016 12:00 AM VIDEO CONTROL ENGINEER Ordered by an unspecified provider. Historical Provider Final Res ult documented in this encounter Visit Diagnoses Not on filedocumented in this encounter Additional Health Concerns Infection Onset Date Last Indicated Resolved Time COVID: Suspected 08/13/2021 08/14/2021 08/14/2021 3:06 AM VIDEO CONTROL ENGINEER COVID: Suspected 08/14/2021 08/14/2021 08/15/2021 3:05 AM VIDEO CONTROL ENGINEER COVID: Suspected 08/14/2021 08/14/2021 08/15/2021 6:25 AM VIDEO CONTROL ENGINEER COVID: Suspected 06/02/2023 06/02/2023 06/02/2023 7:25 PM VIDEO CONTROL ENGINEER COVID: Suspected 07/26/2023 07/26/2023 07/26/2023 3:10 PM VIDEO CONTROL ENGINEER COVID: Suspected 09/25/2024 09/25/2024 09/25/2024 11:03 AM CDT Influenza, adult 09/25/2024 09/25/2024 10/02/2024 3:05 AM CDT COVID: Suspected 10/23/2024 10/23/2024 10/23/2024 1:15 PM CDT COVID: Suspected 12/03/2024 12/03/2024 12/03/2024 10:09 PM CDT documented as of this encounter Care Teams Knife Edger Relationship Specialty Start Date End Date Alee Elizondo PA [address] [place] [address] PCP - General Internal Medicine 02/01/17 06/29/23 Tho Kelsey MD [address] [place] [address] [address] [place] [address] PCP - General Family Medicine 06/30/23 07/04/23 Alee Elizondo PA [address] [place] [address] PCP - General Internal Medicine 07/05/23 Sharan Linton MD [address] [place] [address] Referring Physician Gastroenterology 10/31/18 Taisha Gomez MD [address] [place], [place] [address] Referring Physician Pulmonary Disease 10/31/18 12/23/20 Parag Soto MD [address] [place] [address] Referring Physician Rheumatology 10/31/18 12/23/20 Martha Starks MD [address] [place] [address] Consulting Physician Cardiology 12/24/20 Puneet Uribe MD [address] [facility] 110 [facility] 110 [place] [address] Consulting Physician Rheumatology 12/24/20 01/29/21 Shama Hines MD 4700 [facility], [facility] 230 [place] [address] Consulting Physician Pain Management 01/19/21 Artis Grewal MD [address] [place] [address] Consulting Physician Rheumatology 01/30/21 Harrison Pena RN [address] [place] [address] Surgeon Chief 05/30/23 09/04/23 Nafisa Gregg, JULIUS [address] [place] [address] 300 [place] [address] Surgeon Chief 06/06/23 06/12/23 Amy Mayes NP [address] [place] [address] 300 [place] [address] Nurse Practitioner Cardiovascular Disease 04/20/24 Shailesh Dunn MD [address] [place] [address] [place] [address] Consulting Physician Pulmonary Disease 04/20/24 Sangita Farrar PA [address] [place] [address] Physician Butcher Rheumatology 05/15/24 Timi Cox MD [address] [facility] [id number] [place] [address] Surgeon Colon and Rectal Surgery 01/08/25 Teofilo Gongora MD [address] [id number] [place] [address] Urologist Urology 01/08/25 Allie East LPN [address] [place] [address] [address] [place] [address] Surgeon Chief 05/21/25 05/21/25 documented as of this encounter
--- OUTSIDE RECORDS SUMMARY | 2025-06-07 21:29 | XMS_ITS | Encounter Summary ---
Author Organization [facility] Facility Care Team Providers Care General Accountant Name Role Phone Alee Elizondo Primary Care Provider + [phone] Sharan Linton MD Unavailable [phone] Taisha Gomez MD Unavailable [phone] Parag Soto MD Unavailable [phone] RaziaMartha singh MD Unavailable [phone] Puneet Uribe MD Unavailable [phone] Shama Hines MD Unavailable Artis Grewal MD Unavailable [phone] Harrison Pena RN Unavailable +[phone] Nafisa Gregg RN Unavailable +[phone] Tho Kelsey MD Primary Care Provider [phone] Alee Elizondo Primary Care Provider + [phone] Amy Mayes NP Unavailable +[phone] Shailesh Dunn MD Unavailable [phone] Sangita Farrar Unavailable +[phone] Timi Cox MD Unavailable [phone] Teofilo Gongora MD Unavailable [phone] Allie East LPN Unavailable Encounter Details Date Type Department Care Team (Latest Contact Info) Description 10/15/2016 Orders Only [facility] CLINCONV Provider, MD Tania [facility] [place] [address] Social History Tobacco Use Types Packs/Day Years Used Date Smoking Tobacco: Never Alcohol Use Standard Drinks/Week Comments No 0 (1 standard drink = 0.6 oz pur e alcohol) Comments Unknown Sex and Gender Information Value Date Recorded Sex Assigned at Not on file Legal Sex Female 8:04 PM ROOF PANEL HANGER Gender Identity Female 02/15/2020 6:08 PM CDT [...] COVID: Suspected 08/13/2021 08/14/2021 08/14/2021 3:06 AM ROOF PANEL HANGER COVID: Suspected 08/14/2021 08/14/2021 08/15/2021 3:05 AM ROOF PANEL HANGER COVID: Suspected 08/14/2021 08/14/2021 08/15/2021 6:25 AM ROOF PANEL HANGER COVID: Suspected 06/02/2023 06/02/2023 06/02/2023 7:25 PM ROOF PANEL HANGER COVID: Suspected 07/26/2023 07/26/2023 07/26/2023 3:10 PM ROOF PANEL HANGER COVID: Suspected 09/25/2024 09/25/2024 09/25/2024 11:03 AM CDT Influenza, adult 09/25/2024 09/25/2024 10/02/2024 3:05 AM CDT COVID: Suspected 10/23/2024 10/23/202410/2310/23/2024 1:15 PM CDT COVID: Suspected 12/03/2024 12/03/2024 12/03/2024 10:09 PM CDT documented as of this encounter Care Teams General Accountant Relationship Specialty Start Date End Date Alee Elizondo PA [address] [place] [address] PCP - General Internal Medicine 02/01/17 06/29/23 Tho Kelsey MD [address] [place] [address] [address] [place] [address] PCP - General Family Medicine 06/30/23 07/04/23 Alee Elizondo PA [address] [place] [address] PCP - General Internal Medicine 07/05/23 Sharan Linton MD [address] [place] [address] Referring Physician Gastroenterology 10/31/18 Taisha Gomez MD [address] [place] [address] Referring Physician Pulmonary Disease 10/31/18 12/23/20 Parag Soto MD [address] [place] [address] Referring Physician Rheumatology 10/31/18 12/23/20 Martha Starks MD [address] [place] [address] Consulting Physician Cardiology 12/24/20 Puneet Uribe MD [address] [facility] [address] [place] [address] Consulting Physician Rheumatology 12/24/20 01/29/21 Shama Hines MD 4700 [facility], [facility] 230 [place] [address] Consulting Physician Pain Management 01/19/21 Artis Grewal MD [address] [place] [address] Consulting Physician Rheumatology 01/30/21 Harrison Pena RN [address] [place] [address] Sandblast Or Shotblast Equipment Tender 05/30/23 09/04/23 Nafisa Gregg RN 660 [facility] 300 [place] [address] Sandblast Or Shotblast Equipment Tender 06/06/23 06/12/23 Amy Mayes NP [address] [place] [address] 300 [place] [address] Nurse Practitioner Cardiovascular Disease 04/20/24 Shailesh Dunn MD 4600 [facility] 200 [place] [address] Consulting Physician Pulmonary Disease 04/20/24 Sangita Farrar PA [address] [place] [address] Physician Gripper 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 Rheumatology 05/15/24 Timi Cox MD [address] [facility] [id number] [place] [address] Surgeon Colon and Rectal Surgery 01/08/25 Teofilo Gongora MD [address] [id number] [place] [address] Urologist Urology 01/08/25 Allie East LPN [address] [place] [address] [address] [place] [address] Sandblast Or Shotblast Equipment Tender 05/21/25 05/21/25 documented as of this encounter
--- OUTSIDE RECORDS SUMMARY | 2025-06-07 21:29 | XMS_ITS | Encounter Summary ---
Author Organization [facility] Facility Care Team Providers Care Catering Attendant Name Role Phone Alee Elizondo Primary Care Provider + [phone] Sharan Linton MD Unavailable [phone] Taisha Gomez MD Unavailable +[phone] Parag Soto MD Unavailable [phone] RaziaMartha singh MD Unavailable [phone] Puneet Uribe MD Unavailable [phone] Shama Hines MD Unavailable Artis Grewal MD Unavailable [phone] Harrison Pena RN Unavailable +[phone] Nafisa Gregg RN Unavailable +[phone] Tho Kelsey MD Primary Care Provider [phone] Alee Elizondo Primary Care Provider + [phone] Amy Mayes NP Unavailable [phone] Shailesh Dunn MD Unavailable [phone] Sangita Farrar Unavailable +[phone] Timi Cox MD Unavailable [phone] Teofilo Gongora MD Unavailable +[phone] Allie East LPN Unavailable Encounter Details Date Type Department Care Team (Latest Contact Info) Description 08/10/2017 Orders Only [facility] CLINCONV Provider, MD Tania [address] [place] [address] Social History Tobacco Use Types Packs/Day Years Used Date Smoking Tobacco: Never Smokeless Tobacco: Never Alcohol Use Standard Drinks/Week Comments No 0 (1 standard drink = 0.6 oz pur e alcohol) Comments Unknown Sex and Gender Information Value Date Recorded Sex Assigned at Not on file Legal Sex Female 8:04 PM SEMICONDUCTOR PROCESSOR Gender Identity Female 02/15/2020 6:08 PM CDT Sexual Orientation Not on file documented as of this encounter Functional Status * BP Location Answer Date of Assessment Author Right arm 08/10/2017 11:26 AM SEMICONDUCTOR PROCESSOR Allie Medina MA * BP Location Answer Date of Assessment Author Right arm 08/10/2017 11:26 AM SEMICONDUCTOR PROCESSOR Allie Medina MA documented as of this encounter Plan of Treatment Not on file documented as of this encounter Procedures Procedure Name Priority Date/Time Associated Diagnosis Comments CARDIOLOGY REPORT 08/10/2017 12: 00 AM SEMICONDUCTOR PROCESSOR documented in this encounter Results * CARDIOLOGY REPORT (08/10/2017 12:00 AM SEMICONDUCTOR PROCESSOR) Anatomical Region Laterality Modality Other Narrative 08/10/2017 12:00 AM SEMICONDUCTOR PROCESSOR Ordered by an unspecified provider. Historical Provider [facility] LEANDRA LANDRUM Final Result documented in this encounter Visit Diagnoses Not on filedocumented in this encounter Additional Health Concerns Infection Onset Date Last Indicated Resolved Time COVID: Suspected 08/13/2021 08/14/2021 08/14/2021 3:06 AM SEMICONDUCTOR PROCESSOR COVID: Suspected 08/14/2021 08/14/2021 08/15/2021 3:05 AM SEMICONDUCTOR PROCESSOR COVID: Suspected 08/14/2021 08/14/2021 08/15/2021 6:25 AM SEMICONDUCTOR PROCESSOR COVID: Suspected 06/02/2023 06/02/2023 06/02/2023 7:25 PM SEMICONDUCTOR PROCESSOR COVID: Suspected 07/26/2023 07/26/2023 07/26/2023 3:10 PM SEMICONDUCTOR PROCESSOR COVID: Suspected 09/25/2024 09/25/2024 09/25/2024 11:03 AM CDT Influenza, adult 09/25/2024 09/25/2024 10/02/2024 3:05 AM CDT COVID: Suspected 10/23/2024 10/23/2024 10/23/2024 1:15 PM CDT COVID: Suspected 12/03/2024 12/03/2024 12/03/2024 10:09 PM CDT documented as of this encounter Care Teams Catering Attendant Relationship Specialty Start Date End Date Alee Elizondo PA [address] [place] [address] PCP - General Internal Medicine 02/01/17 06/29/23 Tho Kelsey MD [address] [place] [address] DR [facility] 300 [place] [address] PCP - General Family Medicine 06/30/23 07/04/23 Alee Elizondo PA [address] [facility] [address] [place] [address] PCP - General Internal Medicine 07/05/23 Sharan Linton MD [address] [place] [address] Referring Physician Gastroenterology 10/31/18 Taisha Gomez MD [address] [place] [address] Referring Physician Pulmonary Disease 10/31/18 12/23/20 Parag Soto MD [address] [place] [address] Referring Physician Rheumatology 10/31/18 12/23/20 Martha Starks MD 1095 [facility] 500 [place] [address] Consulting Physician Cardiology 12/24/20 Puneet Uribe MD [address] [facility] 110 [facility] 110 [place] [address] Consulting Physician Rheumatology 12/24/20 01/29/21 Shama Hines MD 4700 [facility] 230 [place] [address] Consulting Physician Pain Management 01/19/21 Artis Grewal MD [address] [place] [address] Consulting Physician Rheumatology 01/30/21 Harrison Pena RN [address] [place] [address] Foreign Student Adviser Teacher 05/30/23 09/04/23 Nafisa Gregg, JULIUS [address] [place] [address] [facility] 300 [place] [address] Foreign Student Adviser Teacher 06/06/23 06/12/23 Amy Mayes, LELAND [address] [place] [address] [facility] 300 [place] [address] Nurse Practitioner Cardiovascular Disease 04/20/24 Shailesh Dunn MD 4600 [facility] 200 [place] [address] Consulting Physician Pulmonary Disease 04/20/24 Sangita Farrar PA [address] [place] [address] Physician Senior Technical Manager Rheumatology 05/15/24 Timi Cox MD [address] [facility] [id number] [place] [address] Surgeon Colon and Rectal Surgery 01/08/25 Teofilo Gongora MD [address] [facility] [id number] [place] [address] Urologist Urology 01/08/25 Allie East, GUN STOCKER [address] [place] [address] [place] [address] Foreign Student Adviser Teacher 05/21/25 05/21/25 documented as of this encounter
--- NOTE | 2025-06-07 22:26 | PC.NURSE ---
Multiple RN attempts for IV. EDP made aware.
[2025-06-07 23:48] VITALS: BP 115/58; PULSE 82; RESP 18; O2SAT 97
[2025-06-07] MEDS: SODIUM CHLORIDE 0.9% IV 1,000 ML 150 ML IV CONT (23:54)
[2025-06-07] MEDS: ONDANSETRON INJ 4 MG/2 ML VIAL IV PUSH (23:55)
[2025-06-07] MEDS: MORPHINE SULFATE (*CRX) 4 MG/ML INJ IV PUSH (23:56)
[2025-06-07] MEDS: cefTRIAXone 1 GM in SODIUM CHLORIDE 0.9% IV 50 ML 100 ML IVPB (23:56)
[2025-06-08] VITALS (8 sets, daily range): BP systolic 90–137; BP diastolic 42–76; PULSE 60–83; RESP 14–18; TEMP 36.1–36.3; O2SAT 95–98; BMI 33.4
[2025-06-08] LABS: Hematocrit 30.6 % (37.0-47.0); Hemoglobin 10.1 g/dL (12.0-15.0); Immature Granulocyte Percent A 0.2 % (0-0.5); Lymphocytes Absolute Auto 1.46 K/mm3 (0.9-3.2); Mean Corpuscular HGB Conc 33.0 g/dl (32-36); Mean Corpuscular Hemoglobin 33.0 pg (26-34); Mean Corpuscular Volume 100.0 fl (80-100); Nucleated Red Blood Cells Absolute Auto 0.000 K/mm3 (0.0-0.012); Nucleated Red Blood Cells Perc 0.0 % (0.0-0.2); Platelet Count Result 149 k/mm3 (150-375); Red Blood Count 3.06 M/mm3 (4.2-5.4); White Blood Count 5.1 K/mm3 (4.5-10.0)
[2025-06-08 00:10] LABS: INR 1.1; Prothrombin Time 14.2 Seconds (11.1-14.7)
[2025-06-08 00:11] LABS: Partial Thromboplastin Time 23.0 Seconds (22.3-36.8)
[2025-06-08 00:13] LABS: Add Urine Microscopic? YES; Appearance Urine Clear (Clear); Glucose Urine UA Negative (Negative); Leukocyte Esterase Ur 2+ LEU/UL (Negative); Need Manual Microscopic Reviewed; Nitrate Urine Positive (Negative); Non Pathogenic Casts 0-2; Specific Grav Ur 1.010 (1.001-1.035)
[2025-06-08 00:14] LABS: Alanine Aminotransferase 17 U/L (6-35); Albumin Level 3.4 g/dL (3.5-5.1); Alkaline Phosphatase 98 U/L (38-126); Anion Gap 3 mmol/L (4-12); Aspartate Amino Transferase 32 U/L (14-36); Bilirubin,Total 0.7 mg/dL (0.2-1.3); Blood Urea Nitrogen 24 mg/dL (7-17); CRP < 0.5 mg/dL (<1.0); Calcium 9.1 mg/dL (8.4-10.2); Carbon Dioxide 21 mmol/L (22-30); Chloride 114 mmol/L (98-107); Creatine Kinase 113 U/L (30-135); Estimated CRCL calculation 38 ml/min; Estimated Glomerular Filt Rate 45; Glucose 87 mg/dL (65-110); Lipase 22 U/L (23-300); Magnesium 1.8 mg/dL (1.6-2.3); Potassium 4.0 mmol/L (3.4-5.0); Sodium 138 mmol/L (137-145); Total Protein 6.2 g/dL (6.3-8.2)
[2025-06-08 00:20] LABS: NT Pro B Type Natriuretic Pept 168 pg/mL (19.9-100)
--- NOTE | 2025-06-08 02:02 | PC.NURSE ---
Phlebotomy called for lab draw
[2025-06-08] MEDS: MORPHINE SULFATE (*CRX) 4 MG/ML INJ IV PUSH ×4 (02:10→18:19)
--- NOTE | 2025-06-08 02:41 | PC.NURSE ---
phlebotomy unable to draw labs
--- NOTE | 2025-06-08 02:52 | PC.NURSE ---
patient is difficult draw. Tube Fitter, multiple RNs and techs attempted with no success. Discussed with EDP, states since VSS at this time, H&H can be retimed to later.
--- NOTE | 2025-06-08 03:24 | WPCEDHO ---
ED Hand Off Checklist All vitals saved: yes IV Site documented: yes All med administrations documented: yes Triage Note Triage Note Patient arrives ambulatory with 06/07/25 19:11 cc of hematuria and bilateral flank pain. Patient states she was seen here yesterday and diagnosed with a UTI and prescribed abx. Patient states she took 3 doses of her abx but started to have bilateral flank pain and increased pain with urination that started today around 1600. Patient states she also called her urologist at [facility] and was told to go to the ER. Allergies meperidine Allergy (Severe, Verified 06/07/25 19:15) HIVES PER CODED ALLERGIES CONFIRMED WITH PT ON ARRIVAL TO PREOP VERIFIED WITH PT. Penicillins Allergy (Severe, Verified 06/07/25 19:15) RASH \PER CODED ALLERGIES CONFIRMED WITH PT ON ARRIVAL TO PREOP 10/28/06 12/30/08 VERIFIED WITH PT. hydrocodone Allergy (Intermediate, Verified 06/07/25 19:15) HIVES PER CODED ALLERGIES CONFIRMED WITH PT ON ARRIVAL TO PREOP 10/28/06 12/30/08 VERIFIED WITH PT. Family History (Last Reviewed 04/01/25 @ 08:58 by Kaity Griffith CMA) Mother Chronic HF (heart failure) Family history of diabetes mellitus in first degree relative Cerebrovascular accident Father Family history of malignant neoplasm of kidney Family history of liver disease Carcinoma of colon Atrial fibrillation Other Acute myocardial infarction Asthma Diabetes mellitus Family history of arthritis Family history of cardiovascular disease Family history of chronic obstructive pulmonary disease Family history of congestive heart failure Hypertension Malignant neoplasm of prostate Active Medications including assessments/comments Sodium Chloride (Normal Saline Iv) 1,000 mls @ 150 mls/hr IV CONT .[id number] STA Stop: 06/08/25 03:43 Last Admin: 06/07/25 23:54 Dose: 150 mls/hr Documented By: ACS Infusion/Titration Document 06/07/25 23:54 ACS (Rec: 06/07/25 23:54 ACS [id number]) Intake IV Site Peripheral Access Right Forearm Container Volume 1,000 Waste Amount 0 Dosing Infusion Rate 150 Cumulative Dose Not Applicable Increase/Decrease Started Elapsed Time Elapsed Time ( 0m minutes) Administered/Completed Medications Discontinued Medications Ceftriaxone Sodium 1 gm/ (Sodium Chloride) 50 mls @ 100 mls/hr IVPB ONCE STA Stop: 06/07/25 21:53 Last Infusion: 06/08/25 00:38 Dose: Infused Documented By: Admin: 06/07/25 23:56 Dose: 100 mls/hr Documented By: ACS Morphine Sulfate (Morphine Sulfate (*Crx) 4 Mg/Ml Inj) 4 mg IV PUSH ONCE STA Stop: 06/07/25 21:22 Last Admin: 06/07/25 23:56 Dose: 4 mg Documented By: ACS Morphine Sulfate (Morphine Sulfate (*Crx) 4 Mg/Ml Inj) 4 mg IV PUSH ONCE STA Stop: 06/08/25 01:58 Last Admin: 06/08/25 02:10 Dose: 4 mg Documented By: ACS Ondansetron HCl (Ondansetron Inj 4 Mg/2 Ml Vial) 4 mg IV PUSH ONCE STA Stop: 06/07/25 21:22 Last Admin: 06/07/25 23:55 Dose: 4 mg Documented By: ACS Notes 06/08/25 02:52 Nurse Note by Nicki Burnham patient is difficult draw. Bicycle Courier, multiple RNs and techs attempted with no success. Discussed with EDP, states since VSS at this time, H&H can be retimed to later. Initialized on 06/08/25 02:52 - END OF NOTE 06/08/25 02:41 Nurse Note by Caitlyn Pereyra. phlebotomy unable to draw labs Initialized on 06/08/25 02:41 - END OF NOTE 06/08/25 02:02 Nurse Note by Caitlyn Pereyra. Phlebotomy called for lab draw Initialized on 06/08/25 02:02 - END OF NOTE 06/07/25 22:26 Nurse Note by Caitlyn Pereyra. Multiple RN attempts for IV. EDP made aware. Initialized on 06/07/25 22:26 - END OF NOTE Interventions/Assessments IV / Saline Lock, Insert Start: 06/07/25 18:54 Freq: Status: Active Protocol: Document 06/08/25 00:56 ACS (Rec: 06/08/25 00:57 ACS [id number]) IV Assessment Peripheral Access Right Forearm IV Catheter Access Initiated IV Insertion Date 06/08/25 IV Insertion Time 00:57 Catheter Gauge 20 IV Site Assessment WNL IV Care and WNL Maintenance PA: Genitourinary Assessment Start: 06/07/25 18:54 Freq: Status: Active Protocol: Document 06/07/25 21:06 ACS (Rec: 06/07/25 21:06 [facility] [id number]) Assessment Genitourinary Burning,Frequency,Hematuria Symptoms Voiding Method Toilet Last Vital Signs Temperature 98.0 F 06/07/25 19:11 Pulse Rate 76 06/08/25 02:29 Respiratory Rate 18 06/08/25 02:29 Pulse Oximetry 98 06/08/25 02:29 Blood Pressure 123/61 06/08/25 02:29 Blood Pressure Mean 81 06/08/25 02:29 Blood Pressure Position Sitting 06/07/25 19:11 Oxygen Delivery Room Air 06/07/25 19:11 Weight 82.7 kg 06/07/25 19:11 Last Result - Abnormals Only RBC 3.06 M/mm3 (4.2-5.4) L 06/07/25 23:49 Hgb 10.1 g/dL (12.0-15.0) L 06/07/25 23:49 Hct 30.6 % (37.0-47.0) L 06/07/25 23:49 Plt Count 149 k/mm3 (150-375) L 06/07/25 23:49 MPV 10.6 fl (7.4-10.4) H 06/07/25 23:49 Bullock % (Auto) 11.9 % (2.6-8.5) H 06/07/25 23:49 Eos % (Auto) 5.1 % (0-4.4) H 06/07/25 23:49 Chloride 114 mmol/L (98-107) H 06/07/25 23:49 Carbon Dioxide 21 mmol/L (22-30) L 06/07/25 23:49 Anion Gap 3 mmol/L (4-12) L 06/07/25 23:49 BUN 24 mg/dL (7-17) H 06/07/25 23:49 Creatinine 1.19 mg/dL (0.7-1.0) H 06/07/25 23:49 Estimated GFR 45 (59-) L 06/07/25 23:49 NT-Pro-B Natriuret Pep 168 pg/mL (19.9-100) H 06/07/25 23:49 Total Protein 6.2 g/dL (6.3-8.2) L 06/07/25 23:49 Albumin 3.4 g/dL (3.5-5.1) L 06/07/25 23:49 Lipase 22 U/L (23-300) L 06/07/25 23:49 Ur Blood (Man) 2+ (Negative) H 06/07/25 23:49 Urine Nitrate Positive (Negative) H 06/07/25 23:49 Leukocyte Esterase Rfl 2+ JACQUELYN/UL (Negative) H 06/07/25 23:49 Urine RBC 21-50 /hpf (0-2) H 06/07/25 23:49 Urine WBC 21-50 /hpf (0-3) H 06/07/25 23:49 Most Recent Suicide Severity Rating Suicide Severity Rating NO RISK INDICATED 06/07/25 19:11
[2025-06-08 06:12] LABS: Hematocrit 33.6 % (37.0-47.0); Hemoglobin 10.9 g/dL (12.0-15.0)
--- NOTE | 2025-06-08 06:56 | PM.IMHP2 ---
H&P: HPI History of Present Illness Date/Time: 06/08/25 06:56 Chief Complaint: Urinary symptom Narrative: 70-year-old female presents to [facility] on 06/07/2025 complaining of burning on urination and weakness. She had just presented in been discharged to this ER on 06/06/2025 on Macrobid for UTI. Past medical history obesity class 1, GERD, depression, asthma, hyperlipidemia, CAD, hypertension, OWEN. Also complains of urinary frequency, urinary urgency, bilateral flank pain, suprapubic discomfort, nausea with dry heaving, hematuria. She did have sepsis from UTI in May. She does see a urologist at [facility], they told her to present to the ER. She has suprapubic catheter. Blood pressure 123/61, heart rate 76, afebrile, saturating 98% on room air. Hemoglobin 10.1, lower than her baseline of 11.5-12. INR 1.1, chloride 114, anion gap 3, bicarb 21, BUN 24, serum creatinine 1.19. Serum creatinine was 1.20 on previous ER visit on 06/06/2025 which is above her baseline of 0.68-1. Lipase 22. Urinalysis essentially unchanged from the day prior with positive nitrate, positive blood, leukocyte esterase, WBC, no bacteria seen. CT urogram without hydronephrosis, nonobstructing calcification in the left kidney, simple right cyst, symmetric renal enhancement, chronic granulomatous disease the liver and spleen, mass lesion involving the caudate lobe of the liver favoring hemangioma which is stable, cholecystectomy, fatty replacement of the pancreas, suprapubic catheter extending to the urinary bladder, [place] mildly thickened bladder wall. No bowel obstruction. Official radiology interpretation is pending. Urine culture from 06/06/2025 demonstrating Gram-negative bacilli 50-100,000 colony-forming units. Previous urine culture on 10/07/2024 demonstrating E coli pansensitive. Patient was given morphine, 1 L isotonic fluid resuscitation, ceftriaxone 1 g, Zofran. Review of Systems Review of Systems: All systems reviewed & are unremarkable except as noted in HPI and below (Subjective) [facility] Past Medical History Medical History Obese Arthritis OWEN (obstructive sleep apnea) GERD (gastroesophageal reflux disease) Kidney stones Depression Angina of effort Asthma Hyperlipidemia CAD (coronary atherosclerotic disease) H/O: HTN (hypertension) Moderate persistent asthma without complication Obstructive sleep apnea (adult) (pediatric) Rhinitis Surgical History Surgical History H/O dilation and curettage History of lithotripsy History of hysterectomy History of repair of hiatal hernia Laparoscopic repair hiatal hernia, laparoscopic Leonor fundoplication 12/14/23 History of left knee replacement History of cholecystectomy S/P appy Family History Family History Mother Chronic HF (heart failure) Family history of diabetes mellitus in first degree relative Cerebrovascular accident Father Family history of malignant neoplasm of kidney Family history of liver disease Carcinoma of colon Atrial fibrillation Other Acute myocardial infarction Asthma Diabetes mellitus Family history of arthritis Family history of cardiovascular disease Family history of chronic obstructive pulmonary disease Family history of congestive heart failure Hypertension Malignant neoplasm of prostate Social History Social History Smoking status: Never smoker Alcohol intake: never Substance use: never Substance use type: does not use Lack of Transportation: No Lack of Food: Never True Current Housing: I Have Housing Concerned About Future Housing: No Difficulty Paying Gas/Electric Bills: No Difficulty Paying for Meds: No Currently Unemployed: No Education: High School Diploma/GED Difficulty w/ Childcare or Family Care: Decline to Answer Living arrangements: alone Spiritual care concerns: No Meds Home Medications and Allergies Home Medications ?Medication ?Instructions ?Recorded ?Confirmed ?Type aspirin 81 mg tablet,delayed 81 mg PO DAILY 06/20/19 06/08/25 History release (Adult Low Dose Aspirin) bupropion HCl 150 mg 24 hr tablet, 150 mg PO QAM 06/20/19 06/08/25 History extended release hydroxychloroquine 200 mg tablet 400 mg PO DAILY 06/20/19 06/08/25 History montelukast 10 mg tablet 10 mg PO QHS 06/20/19 06/08/25 History potassium chloride 10 mEq 10 meq PO DAILY 06/20/19 06/08/25 History tablet,extended release Held on 06/08/25. Instructions: .Provider Order folic acid 1 mg tablet 2 mg PO DAILY 06/21/19 06/08/25 History duloxetine 60 mg capsule,delayed 60 mg PO DAILY 08/20/19 06/08/25 History release cholecalciferol (vitamin D3) 125 125 mcg PO DAILY 03/08/21 06/08/25 History mcg (5,000 unit) tablet (Vitamin D3) docusate sodium 100 mg capsule 200 mg PO BID 03/08/21 06/08/25 History (Colace) ropinirole 0.5 mg tablet 1 mg PO HS 07/14/21 06/08/25 History abatacept 125 mg/mL subcutaneous 125 mg subcut WEEKLY 07/22/23 06/08/25 History syringe (Orencia) Held on 06/08/25. Instructions: .Provider Order bumetanide 1 mg tablet 1 mg PO BID 07/22/23 06/08/25 History Held on 06/08/25. Instructions: .Provider Order gabapentin 100 mg capsule 200 mg PO BID 07/22/23 06/08/25 History linaclotide 290 mcg capsule See Rx Instructions .Route 10/11/23 06/08/25 Rx (Linzess) .COMPLEX #30 caps methotrexate sodium 2.5 mg tablet 17.5 mg PO WEEKLY 12/05/23 06/08/25 History Held on 06/08/25. Instructions: .Provider Order rosuvastatin 10 mg tablet 10 mg PO DAILY 09/18/24 06/08/25 History acetaminophen 500 mg capsule 500 mg PO Q6H PRN pain #14 caps 11/05/24 06/08/25 Rx ondansetron 4 mg disintegrating 4 mg PO Q6H PRN nausea and 06/06/25 06/08/25 Rx tablet vomiting #10 tabs cyclobenzaprine 5 mg tablet 5 mg PO HS PRN muscle spasm 06/08/25 06/08/25 History fluticasone propionate 50 2 spray intranasal DAILY 06/08/25 06/08/25 History mcg/actuation nasal spray,suspension ketoconazole 2 % shampoo 1 applic topical DAILY PRN Dandruff 06/08/25 06/08/25 History oxybutynin chloride 10 mg 10 mg PO DAILY 06/08/25 06/08/25 History tablet,extended release 24 hr oxycodone 10 mg tablet 10 mg PO Q8H PRN pain 06/08/25 06/08/25 History polyethylene glycol 3350 17 17 g PO DAILY PRN constipation 06/08/25 06/08/25 History gram/dose oral powder Allergies Allergy/AdvReac Type Severity Reaction Status Date / Time meperidine Allergy Severe HIVES Verified 06/08/25 04:40 Penicillins Allergy Severe RASH Verified 06/08/25 04:40 hydrocodone Allergy Intermediate HIVES Verified 06/08/25 04:40 Vital Signs Vital Signs - 24 hr 06/07/25 19:11 06/07/25 21:06 06/07/25 23:48 Temperature 98.0 F Pulse Rate 96 79 82 Respiratory Rate 18 13 18 Blood Pressure 111/69 111/47 L 115/58 L Pulse Oximetry 100 100 97 Oxygen Delivery Room Air 06/08/25 02:29 06/08/25 03:56 06/08/25 05:31 Temperature 96.9 F L Pulse Rate 76 76 83 Respiratory Rate 18 18 16 Blood Pressure 123/61 123/61 137/76 Pulse Oximetry 98 98 95 Oxygen Delivery 06/08/25 06:15 06/08/25 06:44 Temperature 97.4 F L Pulse Rate 62 Respiratory Rate 14 Blood Pressure 99/50 L Pulse Oximetry 96 Oxygen Delivery Room Air Exam Const: General: comfortable and no acute distress Other: A&O x3 HENMT: Other: Tacky mucous membranes Eyes: Pupils: Equal, round and reactive pupils present Resp: Effort & Inspection: normal respiratory effort Auscultation: clear to auscultation bilaterally Cardio: Rate: regular rate Rhythm: regular rhythm GI: GI Palp: Yes Soft to palpation Extrem: General: no edema Results Labs Labs: Short CBC 06/07/25 06/08/25 Range/Units 23:49 06:05 WBC 5.1 (4.5-10.0) K/mm3 Hgb 10.1 L 10.9 L (12.0-15.0) g/dL Hct 30.6 L 33.6 L (37.0-47.0) % Plt Count 149 L (150-375) k/mm3 BMP 06/07/25 23:49 Sodium 138 Potassium 4.0 Chloride 114 H Carbon Dioxide 21 L BUN 24 H Creatinine 1.19 H Glucose 87 Calcium 9.1 Cardiac Enzymes 06/07/25 Range/Units 23:49 Total Creatine Kinase 113 (30-135) U/L Liver Function 06/07/25 Range/Units 23:49 Total Bilirubin 0.7 (0.2-1.3) mg/dL AST 32 (14-36) U/L ALT 17 (6-35) U/L Alkaline Phosphatase 98 (38-126) U/L Albumin 3.4 L (3.5-5.1) g/dL Urine 06/07/25 Range/Units 23:49 Urine Color Yellow (Yellow) Urine Appearance Clear (Clear) Urine pH 5.0 (5.0-9.0) Ur Specific [place] 1.010 (1.001-1.035) Urine Protein Trace (Negative) mg/dL Urine Glucose (UA) Negative (Negative) mg/dL Assessment and Plan Assessment and plan (1) NORAH (acute kidney injury): Code(s): N17.9 - Acute kidney failure, unspecified Status: Acute (2) Hematuria: Code(s): R31.9 - Hematuria, unspecified Status: Acute (3) Cystitis: Code(s): N30.90 - Cystitis, unspecified without hematuria Status: Acute (4) Catheter-associated urinary tract infection: Code(s): T83.511A - Infection and inflammatory reaction due to indwelling urethral catheter, initial encounter; N39.0 - Urinary tract infection, site not specified Status: Acute Plan Symptoms worsened, failure of outpatient therapy. A repeat urine culture has been obtained. For now, continue ceftriaxone. Exchange new Lyles catheter. Follow urine culture. Follow renal function trend. Will not give additional fluid stress she had. Patient is on bumetanide at home. Morphine for pain control. Patient wishes to be full code. SCDs. Heart healthy diet. Prior Studies I have reviewed the following patient records and this information was taken into consideration when formulating the assessment and plan.: previous labs, previous ER visits and previous hospitalizations Time Spent with Patient Time with patient: less than 45 minutes Hospitalist MIPS Advance Care Plan I have confirmed that the patient's Advanced Care Plan is present, code status is documented, or surrogate decision maker is listed in patient medical record.: Yes Medication Reconciliation I have utilized all available resources to obtain, update and review the patients current medications (includes all prescriptions, OTC, herbals, cannabis, and nutritional supplements).: Yes
[2025-06-08] MEDS: ONDANSETRON INJ 4 MG/2 ML VIAL IV PUSH ×2 (08:13→15:53)
[2025-06-08] MEDS: HYDROXYCHLOROQUINE SULFATE 200 MG TABLET 400 MG PO (13:18)
[2025-06-08] MEDS: oxyBUTYnin CHLORIDE XL 5 MG TAB.ER.24 10 MG PO (13:18)
[2025-06-08] MEDS: FOLIC ACID 1 MG TABLET 2 MG PO (13:19)
[2025-06-08] MEDS: oxyCODONE HCL (*CRX) 5 MG TAB IR 10 MG PO (13:19)
[2025-06-08] MEDS: buPROPion HCL XL (24 HR) 150 MG TABCR PO (13:19)
[2025-06-08] MEDS: CHOLECALCIFEROL (VITAMIN D3) 125 MCG (5,000 UNITS) TABLET PO (13:20)
[2025-06-08] MEDS: ROSUVASTATIN 10 MG TABLET PO (13:20)
[2025-06-08] MEDS: ASPIRIN 81 MG ENTERIC TABLET PO (13:20)
[2025-06-08] MEDS: LINACLOTIDE 145 MCG CAPSULE 290 MCG PO (13:20)
[2025-06-08] MEDS: DULoxetine HCL 60 MG CAPSULE.DR PO (13:21)
--- NOTE | 2025-06-08 14:10 | P.PNIM_ITS ---
Assessment and Plan Assessment and Plan (1) NORAH (acute kidney injury): Code(s): N17.9 - Acute kidney failure, unspecified Status: Acute (2) Hematuria: Code(s): R31.9 - Hematuria, unspecified Status: Acute (3) Cystitis: Code(s): N30.90 - Cystitis, unspecified without hematuria Status: Acute (4) Catheter-associated urinary tract infection: Code(s): T83.511A - Infection and inflammatory reaction due to indwelling urethral catheter, initial encounter; N39.0 - Urinary tract infection, site not specified Status: Acute Plan Symptoms worsened, failure of outpatient therapy. A repeat urine culture has been obtained. For now, continue ceftriaxone. Exchange new Lyles catheter. Follow urine culture. Follow renal function trend. Will not give additional fluid stress she had. Patient is on bumetanide at home. Morphine for pain control. -daily labs follow bc, u c/s Patient wishes to be full code. SCDs. Heart healthy diet. Medical Record Review I have reviewed the following patient records and this information was taken into consideration when formulating the assessment and plan.: previous labs, previous ER visits, previous hospitalizations and previous clinic visits Time Spent With Patient Time with patient: 25 - 35 minutes Subjective Date/time seen: 06/08/25 14:10 Interval history: 70-year-old female presents to [facility] on 06/07/2025 complaining of burning on urination and weakness. She had just presented in been discharged to this ER on 06/06/2025 on Macrobid for UTI. Past medical history obesity class 1, GERD, depression, asthma, hyperlipidemia, CAD, hypertension, OWEN. Also complains of urinary frequency, urinary urgency, bilateral flank pain, suprapubic discomfort, nausea with dry heaving, hematuria. She did have sepsis from UTI in May. She does see a urologist at [facility], they told her to present to the ER. She has suprapubic catheter. Blood pressure 123/61, heart rate 76, afebrile, saturating 98% on room air. Hemoglobin 10.1, lower than her baseline of 11.5-12. INR 1.1, chloride 114, anion gap 3, bicarb 21, BUN 24, serum creatinine 1.19. Serum creatinine was 1.20 on previous ER visit on 06/06/2025 which is above her baseline of 0.68-1. Lipase 22. Urinalysis essentially unchanged from the day prior with positive nitrate, positive blood, leukocyte esterase, WBC, no bacteria seen. CT urogram without hydronephrosis, nonobstructing calcification in the left kidney, simple right cyst, symmetric renal enhancement, chronic granulomatous disease the liver and spleen, mass lesion involving the caudate lobe of the liver favoring hemangioma which is stable, cholecystectomy, fatty replacement of the pancreas, suprapubic catheter extending to the urinary bladder, [place] mildly thickened bladder wall. No bowel obstruction. Official radiology interpretation is pending. Urine culture from 06/06/2025 demonstrating Gram-negative bacilli 50- 100,000 colony-forming units. Previous urine culture on 10/07/2024 demonstrating E coli pansensitive. Patient was given morphine, 1 L isotonic fluid resuscitation, ceftriaxone 1 g, Zofran. Pt is seen and examined. She just got pain and nausea meds, so feeling ok. Review of Systems Review of Systems: All systems reviewed & are unremarkable except as noted in HPI and below (Subjective) Exam Narrative: resting in bed, Const: General: comfortable and no acute distress Other: A&O x3 HENMT: Other: Tacky mucous membranes Eyes: Pupils: Equal, round and reactive pupils present Resp: Effort & Inspection: normal respiratory effort Auscultation: clear to auscultation bilaterally Cardio: Rate: regular rate Rhythm: regular rhythm Neuro: Cranial nerves: Yes Equal, round and reactive pupils present Extrem: General: no edema Psych: Affect: normal affect Objective Data Vital Signs Vital Signs: Vital Signs - 24 hr 06/07/25 19:11 06/07/25 21:06 06/07/25 23:48 Temperature 98.0 F Pulse Rate 96 79 82 Respiratory Rate 18 13 18 Blood Pressure 111/69 111/47 L 115/58 L Pulse Oximetry 100 100 97 Oxygen Delivery Room Air 06/08/25 02:29 06/08/25 03:56 06/08/25 05:31 Temperature 96.9 F L Pulse Rate 76 76 83 Respiratory Rate 18 18 16 Blood Pressure 123/61 123/61 137/76 Pulse Oximetry 98 98 95 Oxygen Delivery 06/08/25 06:15 06/08/25 06:44 06/08/25 09:00 Temperature 97.4 F L Pulse Rate 62 Respiratory Rate 14 Blood Pressure 99/50 L Pulse Oximetry 96 Oxygen Delivery Room Air Room Air Intake/Output Intake/Output: Intake & Output 06/05/25 06/06/25 06/07/25 06/08/25 23:59 23:59 23:59 23:59 Intake Total 1300 Output Total 1625 Balance -325 Meds/Results Medications: Active Medications Generic Name Dose Route Start Last Admin Trade Name Freq PRN Reason Stop Dose Admin Acetaminophen 500 mg 06/08/25 12:39 Acetaminophen 500 Mg Tablet PO Q6H PRN PAIN RATED 1-3 Aspirin 81 mg 06/08/25 12:45 06/08/25 13:20 Aspirin 81 Mg Enteric Tablet PO 81 mg DAILY JULIA Administration Bupropion HCl 150 mg 06/08/25 12:45 06/08/25 13:19 Bupropion Hcl Xl (24 Hr) 150 Mg Tabcr PO 150 mg QAM JULIA Administration Cyclobenzaprine HCl 5 mg 06/08/25 12:39 Cyclobenzaprine Hcl 5 Mg Tablet PO HS PRN Muscle Spasm Docusate Sodium 200 mg 06/08/25 17:00 Docusate Sodium 100 Mg Capsule PO BID JULIA Duloxetine HCl 60 mg 06/08/25 12:50 06/08/25 13:21 Duloxetine Hcl 60 Mg Capsule.Dr PO 60 mg DAILY JULIA Administration Fluticasone Propionate 2 spray 06/08/25 12:50 06/08/25 13:30 Fluticasone Propionate 0.05% Na Spr 16 Gm Btl (*Bkc) NASAL Not Given DAILY [facility] Folic Acid 2 mg 06/08/25 12:50 06/08/25 13:19 Folic Acid 1 Mg Tablet PO 2 mg DAILY JULIA Administration Gabapentin 200 mg 06/08/25 17:00 Gabapentin 100 Mg Capsule PO BID [facility] Hydroxychloroquine Sulfate 400 mg 06/08/25 12:50 06/08/25 13:18 Hydroxychloroquine Sulfate 200 Mg Tablet PO 400 mg DAILY JULIA Administration Ceftriaxone Sodium 1 gm/ 50 mls @ 100 mls/hr 06/08/25 21:00 Sodium Chloride IVPB Q24H JULIA Linaclotide 290 mcg 06/08/25 12:50 06/08/25 13:20 Linaclotide 145 Mcg Capsule PO 290 mcg DAILY JULIA Administration Montelukast Sodium 10 mg 06/08/25 21:00 Montelukast Sodium 10 Mg Tablet PO QHS [facility] Morphine Sulfate 4 mg 06/08/25 02:12 06/08/25 12:20 Morphine Sulfate (*Crx) 4 Mg/Ml Inj IV PUSH 4 mg Q2H PRN Administration Pain Rated 7-10 Ondansetron HCl 4 mg 06/08/25 08:01 06/08/25 08:13 Ondansetron Inj 4 Mg/2 Ml Vial IV PUSH 4 mg Q4H PRN Administration Nausea And Vomiting Ondansetron HCl 4 mg 06/08/25 12:39 Ondansetron Hcl Odt 4 Mg Tablet PO Q6H PRN Nausea And Vomiting Oxybutynin Chloride 10 mg 06/08/25 12:50 06/08/25 13:18 Oxybutynin Chloride Xl 5 Mg Tab.Er.24 PO 10 mg DAILY JULIA Administration Oxycodone HCl 10 mg 06/08/25 12:39 06/08/25 13:19 Oxycodone Hcl (*Crx) 5 Mg Tab Ir PO 10 mg Q8H PRN Administration PAIN RATED 7-10 Polyethylene Glycol 17 gm 06/08/25 12:39 Polyethylene Glycol 3350 17 Gm Powd.Pack PO DAILY PRN Constipation Ropinirole HCl 1 mg 06/08/25 21:00 Ropinirole Hcl 1 Mg Tablet PO [facility] Rosuvastatin Calcium 10 mg 06/08/25 12:50 06/08/25 13:20 Rosuvastatin 10 Mg Tablet PO 10 mg DAILY [facility] Administration Selenium Sulfide 1 applic 06/08/25 12:46 Selenium Sulfide 1% Shampoo 207 Ml TOPICAL DAILY PRN Dandruff Vitamin D 125 mcg 06/08/25 12:45 06/08/25 13:20 Cholecalciferol (Vitamin D3) 125 Mcg (5,000 Units) Tablet PO 125 mcg DAILY JULIA Administration Radiology Results: ITS Impressions Abdomen/Pelvis CT 06/08/25 08:50 IMPRESSION: 1. Nonobstructing left kidney stone. Labs Labs: Laboratory Results - last 24 hr 06/07/25 06/08/25 23:49 06:05 WBC 5.1 RBC 3.06 L Hgb 10.1 L 10.9 L Hct 30.6 L 33.6 L MCV 100.0 MCH 33.0 MCHC 33.0 RDW 14.3 Plt Count 149 L MPV 10.6 H Immature Gran % (Auto) 0.2 Neut % (Auto) 53.2 Lymph % (Auto) 28.4 [place] % (Auto) 11.9 H Eos % (Auto) 5.1 H Baso % (Auto) 1.2 Lymph # (Auto) 1.46 [place] # (Auto) 0.6 Eos # (Auto) 0.3 Baso # (Auto) 0.1 Abs Immat Gran (auto) 0.01 Absolute Neuts (auto) 2.7 Absolute Nucleated RBC 0.000 Nucleated RBC % 0.0 PT 14.2 INR 1.1 APTT 23.0 Sodium 138 Potassium 4.0 Chloride 114 H Carbon Dioxide 21 L Anion Gap 3 L BUN 24 H Creatinine 1.19 H Estim Creat Clear Calc 38 Estimated GFR 45 L Glucose 87 Lactic Acid 0.8 Calcium 9.1 Magnesium 1.8 Total Bilirubin 0.7 AST 32 ALT 17 Alkaline Phosphatase 98 Total Creatine Kinase 113 C-Reactive Protein < 0.5 NT-Pro-B Natriuret Pep 168 H Total Protein 6.2 L Albumin 3.4 L Lipase 22 L Urine Color Yellow Urine Appearance Clear Urine pH 5.0 Ur Specific [place] 1.010 Urine Protein Trace Urine Glucose (UA) Negative Urine Ketones Negative Ur Blood (Man) 2+ H Urine Nitrate Positive H Urine Bilirubin Negative Urine Urobilinogen 0.2 Add Ur Microanalysis Reviewed Leukocyte Esterase Rfl 2+ H Urine RBC 21-50 H Urine WBC 21-50 H Ur Squamous Epith Cells None seen Calcium Oxalate Crystal Present Urine Bacteria None seen Urine Casts 0-2
[2025-06-08] MEDS: DOCUSATE SODIUM 100 MG CAPSULE 200 MG PO (16:43)
[2025-06-08] MEDS: GABAPENTIN 100 MG CAPSULE 200 MG PO (16:43)
[2025-06-08] MEDS: MONTELUKAST SODIUM 10 MG TABLET PO (21:35)
[2025-06-08] MEDS: ACETAMINOPHEN 500 MG TABLET PO (21:37)
[2025-06-08] MEDS: cefTRIAXone 1 GM in SODIUM CHLORIDE 0.9% IV 50 ML 100 ML IVPB (21:41)
[2025-06-09] MEDS: ONDANSETRON INJ 4 MG/2 ML VIAL IV PUSH ×2 (02:16→06:27)
[2025-06-09 05:57] LABS: Hematocrit 33.5 % (37.0-47.0); Hemoglobin 10.7 g/dL (12.0-15.0); Mean Corpuscular HGB Conc 31.9 g/dl (32-36); Mean Corpuscular Hemoglobin 32.8 pg (26-34); Mean Corpuscular Volume 102.8 fl (80-100); Platelet Count Result 148 k/mm3 (150-375); Red Blood Count 3.26 M/mm3 (4.2-5.4); White Blood Count 4.7 K/mm3 (4.5-10.0)
[2025-06-09 06:00] VITALS: BP 109/41; PULSE 66; RESP 18; TEMP 37; O2SAT 91
--- NOTE | 2025-06-09 06:10 | PC.NURSE ---
0030: Pt Bp 94/38, manual 102/44. Pt denies symptoms. Hospitalist contacted regarding pt's hypotension; no new order
[2025-06-09 06:24] LABS: Anion Gap 5 mmol/L (4-12); Blood Urea Nitrogen 23 mg/dL (7-17); Calcium 8.8 mg/dL (8.4-10.2); Carbon Dioxide 21 mmol/L (22-30); Chloride 111 mmol/L (98-107); Estimated CRCL calculation 42 ml/min; Estimated Glomerular Filt Rate 51; Glucose 94 mg/dL (65-110); Potassium 3.9 mmol/L (3.4-5.0); Sodium 137 mmol/L (137-145)
[2025-06-09] MEDS: DOCUSATE SODIUM 100 MG CAPSULE 200 MG PO ×2 (08:21→17:28)
[2025-06-09] MEDS: buPROPion HCL XL (24 HR) 150 MG TABCR PO (08:22)
[2025-06-09] MEDS: DULoxetine HCL 60 MG CAPSULE.DR PO (08:22)
[2025-06-09] MEDS: GABAPENTIN 100 MG CAPSULE 200 MG PO ×2 (08:22→17:28)
[2025-06-09] MEDS: LINACLOTIDE 145 MCG CAPSULE 290 MCG PO (08:22)
[2025-06-09] MEDS: FOLIC ACID 1 MG TABLET 2 MG PO (08:23)
[2025-06-09] MEDS: ROSUVASTATIN 10 MG TABLET PO (08:23)
[2025-06-09] MEDS: HYDROXYCHLOROQUINE SULFATE 200 MG TABLET 400 MG PO (08:23)
[2025-06-09] MEDS: CHOLECALCIFEROL (VITAMIN D3) 125 MCG (5,000 UNITS) TABLET PO (08:23)
[2025-06-09] MEDS: ASPIRIN 81 MG ENTERIC TABLET PO (08:23)
[2025-06-09] MEDS: oxyBUTYnin CHLORIDE XL 5 MG TAB.ER.24 10 MG PO (08:23)
[2025-06-09 09:40] VITALS: BP 130/58; PULSE 71; RESP 16; O2SAT 99
[2025-06-09] MEDS: oxyCODONE HCL (*CRX) 5 MG TAB IR 10 MG PO ×2 (09:49→19:45)
--- NOTE | 2025-06-09 10:57 | PM.IMPN2 ---
Assessment and Plan Assessment and Plan (1) NORAH (acute kidney injury): Code(s): N17.9 - Acute kidney failure, unspecified Status: Acute (2) Hematuria: Code(s): R31.9 - Hematuria, unspecified Status: Acute (3) Cystitis: Code(s): N30.90 - Cystitis, unspecified without hematuria Status: Acute (4) Catheter-associated urinary tract infection: Code(s): T83.511A - Infection and inflammatory reaction due to indwelling urethral catheter, initial encounter; N39.0 - Urinary tract infection, site not specified Status: Acute Plan Symptoms worsened, failure of outpatient therapy. A repeat urine culture has been obtained. For now, continue ceftriaxone. Exchange new Lyles catheter. Follow urine culture. Follow renal function trend. Will not give additional fluid stress she had. Patient is on bumetanide at home. Morphine for pain control. -daily labs follow bc, u c/s 06/09 passed the kidney stone will continue with pain regimen-will need to try to find PO options that work anticipate d/c home in am with a f/u with urology Patient wishes to be full code. SCDs. Heart healthy diet. Medical Record Review I have reviewed the following patient records and this information was taken into consideration when formulating the assessment and plan.: previous labs Time Spent With Patient Time with patient: 25 - 35 minutes Subjective Date/time seen: 06/09/25 10:57 Interval history: 70-year-old female presents to [facility] on 06/07/2025 complaining of burning on urination and weakness. She had just presented in been discharged to this ER on 06/06/2025 on Macrobid for UTI. Past medical history obesity class 1, GERD, depression, asthma, hyperlipidemia, CAD, hypertension, OWEN. Also complains of urinary frequency, urinary urgency, bilateral flank pain, suprapubic discomfort, nausea with dry heaving, hematuria. She did have sepsis from UTI in May. She does see a urologist at [facility], they told her to present to the ER. She has suprapubic catheter. Blood pressure 123/61, heart rate 76, afebrile, saturating 98% on room air. Hemoglobin 10.1, lower than her baseline of 11.5-12. INR 1.1, chloride 114, anion gap 3, bicarb 21, BUN 24, serum creatinine 1.19. Serum creatinine was 1.20 on previous ER visit on 06/06/2025 which is above her baseline of 0.68-1. Lipase 22. Urinalysis essentially unchanged from the day prior with positive nitrate, positive blood, leukocyte esterase, WBC, no bacteria seen. CT urogram without hydronephrosis, nonobstructing calcification in the left kidney, simple right cyst, symmetric renal enhancement, chronic granulomatous disease the liver and spleen, mass lesion involving the caudate lobe of the liver favoring hemangioma which is stable, cholecystectomy, fatty replacement of the pancreas, suprapubic catheter extending to the urinary bladder, [place] mildly thickened bladder wall. No bowel obstruction. Official radiology interpretation is pending. Urine culture from 06/06/2025 demonstrating Gram-negative bacilli 50-100,000 colony-forming units. Previous urine culture on 10/07/2024 demonstrating E coli pansensitive. Patient was given morphine, 1 L isotonic fluid resuscitation, ceftriaxone 1 g, Zofran. Pt is seen and examined. She just got pain and nausea meds, so feeling ok. 06/09 passed the stone today. still c/o pain. worried that pain would be unbearable if she goes home. Review of Systems Review of Systems: All systems reviewed & are unremarkable except as noted in HPI and below (Subjective) Exam Narrative: resting in bed, Const: General: comfortable and no acute distress Other: A&O x3 HENMT: Other: Tacky mucous membranes Eyes: Pupils: Equal, round and reactive pupils present Resp: Effort & Inspection: normal respiratory effort Auscultation: clear to auscultation bilaterally Cardio: Rate: regular rate Rhythm: regular rhythm Neuro: Cranial nerves: Yes Equal, round and reactive pupils present Extrem: General: no edema Psych: Affect: normal affect Objective Data Vital Signs Vital Signs: Vital Signs - 24 hr 06/08/25 14:00 06/08/25 19:18 06/08/25 21:28 Temperature 97 F L Pulse Rate 60 Respiratory Rate 14 Blood Pressure 90/42 L 104/44 L 107/42 L Pulse Oximetry 98 06/08/25 22:00 12/07/25 06:00 Temperature 98.6 F Pulse Rate 66 Respiratory Rate 18 Blood Pressure 107/42 L 109/41 L Pulse Oximetry 91 Intake/Output Intake/Output: Intake & Output 06/06/25 06/07/25 06/08/25 06/09/25 23:59 23:59 23:59 23:59 Intake Total 2160 500 Output Total 2425 1300 Balance -265 -800 Meds/Results Medications: Active Medications Generic Name Dose Route Start Last Admin Trade Name Freq PRN Reason Stop Dose Admin Acetaminophen 500 mg 06/08/25 12:39 06/08/25 21:37 Acetaminophen 500 Mg Tablet PO 500 mg Q6H PRN Administration PAIN RATED 1-3 Aspirin 81 mg 06/08/25 12:45 06/09/25 08:23 Aspirin 81 Mg Enteric Tablet PO 81 mg DAILY JULIA Administration Bupropion HCl 150 mg 06/08/25 12:45 06/09/25 08:22 Bupropion Hcl Xl (24 Hr) 150 Mg Tabcr PO 150 mg QAM JULIA Administration Cyclobenzaprine HCl 5 mg 06/08/25 12:39 Cyclobenzaprine Hcl 5 Mg Tablet PO HS PRN Muscle Spasm Docusate Sodium 200 mg 06/08/25 17:00 06/09/25 08:21 Docusate Sodium 100 Mg Capsule PO 200 mg BID JULIA Administration Duloxetine HCl 60 mg 06/08/25 12:50 06/09/25 08:22 Duloxetine Hcl 60 Mg Capsule.Dr PO 60 mg DAILY JULIA Administration Fluticasone Propionate 2 spray 06/08/25 12:50 06/08/25 13:30 Fluticasone Propionate 0.05% Na Spr 16 Gm Btl (*Bkc) NASAL Not Given DAILY JULIA Folic Acid 2 mg 06/08/25 12:50 06/09/25 08:23 Folic Acid 1 Mg Tablet PO 2 mg DAILY JULIA Administration Gabapentin 200 mg 06/08/25 17:00 06/09/25 08:22 Gabapentin 100 Mg Capsule PO 200 mg BID JULIA Administration Hydroxychloroquine Sulfate 400 mg 06/08/25 12:50 06/09/25 08:23 Hydroxychloroquine Sulfate 200 Mg Tablet PO 400 mg DAILY JULIA Administration Ceftriaxone Sodium 1 gm/ 50 mls @ 100 mls/hr 06/08/25 21:00 06/08/25 21:41 Sodium Chloride IVPB 100 mls/hr Q24H JULIA Administration Linaclotide 290 mcg 06/08/25 12:50 06/09/25 08:22 Linaclotide 145 Mcg Capsule PO 290 mcg DAILY JULIA Administration Montelukast Sodium 10 mg 06/08/25 21:00 06/08/25 21:35 Montelukast Sodium 10 Mg Tablet PO 10 mg QHS JULIA Administration Morphine Sulfate 4 mg 06/08/25 02:12 06/08/25 18:19 Morphine Sulfate (*Crx) 4 Mg/Ml Inj IV PUSH 4 mg Q2H PRN Administration Pain Rated 7-10 Ondansetron HCl 4 mg 06/08/25 08:01 06/09/25 06:27 Ondansetron Inj 4 Mg/2 Ml Vial IV PUSH 4 mg Q4H PRN Administration Nausea And Vomiting Ondansetron HCl 4 mg 06/08/25 12:39 Ondansetron Hcl Odt 4 Mg Tablet PO Q6H PRN Nausea And Vomiting Oxybutynin Chloride 10 mg 06/08/25 12:50 06/09/25 08:23 Oxybutynin Chloride Xl 5 Mg Tab.Er.24 PO 10 mg DAILY JULIA Administration Oxycodone HCl 10 mg 06/08/25 12:39 06/09/25 09:49 Oxycodone Hcl (*Crx) 5 Mg Tab Ir PO 10 mg Q8H PRN Administration PAIN RATED 7-10 Polyethylene Glycol 17 gm 06/08/25 12:39 Polyethylene Glycol 3350 17 Gm Powd.Pack PO DAILY PRN Constipation Ropinirole HCl 1 mg 06/08/25 21:00 06/08/25 21:35 Ropinirole Hcl 1 Mg Tablet PO 1 mg HS JULIA Administration Rosuvastatin Calcium 10 mg 06/08/25 12:50 06/09/25 08:23 Rosuvastatin 10 Mg Tablet PO 10 mg DAILY JULIA Administration Selenium Sulfide 1 applic 06/08/25 12:46 Selenium Sulfide 1% Shampoo 207 Ml TOPICAL DAILY PRN Dandruff Vitamin D 125 mcg 06/08/25 12:45 06/09/25 08:23 Cholecalciferol (Vitamin D3) 125 Mcg (5,000 Units) Tablet PO 125 mcg DAILY JULIA Administration Radiology Results: ITS Impressions Abdomen/Pelvis CT 06/08/25 08:50 IMPRESSION: 1. Nonobstructing left kidney stone. Labs Labs: Laboratory Results - last 24 hr 06/09/25 05:10 WBC 4.7 RBC 3.26 L Hgb 10.7 L Hct 33.5 L MCV 102.8 H MCH 32.8 MCHC 31.9 L RDW 14.1 Plt Count 148 L MPV 10.6 H Sodium 137 Potassium 3.9 Chloride 111 H Carbon Dioxide 21 L Anion Gap 5 BUN 23 H Creatinine 1.06 H Estim Creat Clear Calc 42 Estimated GFR 51 L Glucose 94 Calcium 8.8
[2025-06-09] MEDS: ONDANSETRON HCL ODT 4 MG TABLET PO (11:49)
[2025-06-09] MEDS: MORPHINE SULFATE (*CRX) 4 MG/ML INJ IV PUSH (12:47)
[2025-06-09 14:00] VITALS: BP 94/44; PULSE 69; RESP 18; TEMP 35.9; O2SAT 96
[2025-06-09 19:38] VITALS: BP 103/48
[2025-06-09] MEDS: MONTELUKAST SODIUM 10 MG TABLET PO (19:46)
[2025-06-09] MEDS: cefTRIAXone 1 GM in SODIUM CHLORIDE 0.9% IV 50 ML 100 ML IVPB (19:48)
[2025-06-09 20:44] VITALS: PULSE 72; RESP 16; TEMP 36.7; O2SAT 97
[2025-06-10 02:35] VITALS: BP 109/51; PULSE 74
[2025-06-10] MEDS: CYCLOBENZAPRINE HCL 5 MG TABLET PO ×2 (02:41→20:36)
[2025-06-10 05:30] VITALS: BP 112/54; PULSE 72; RESP 18; TEMP 36.5; O2SAT 97
[2025-06-10 06:29] LABS: Hematocrit 34.8 % (37.0-47.0); Hemoglobin 10.8 g/dL (12.0-15.0); Immature Platelet Fraction Pct 5.2 % (0.9-11.2); Mean Corpuscular HGB Conc 31.0 g/dl (32-36); Mean Corpuscular Hemoglobin 33.0 pg (26-34); Mean Corpuscular Volume 106.4 fl (80-100); Platelet Count Result 130 k/mm3 (150-375); Red Blood Count 3.27 M/mm3 (4.2-5.4); White Blood Count 4.2 K/mm3 (4.5-10.0)
[2025-06-10 07:01] LABS: Anion Gap 4 mmol/L (4-12); Blood Urea Nitrogen 20 mg/dL (7-17); Calcium 8.7 mg/dL (8.4-10.2); Carbon Dioxide 22 mmol/L (22-30); Chloride 110 mmol/L (98-107); Estimated CRCL calculation 41 ml/min; Estimated Glomerular Filt Rate 49; Glucose 83 mg/dL (65-110); Potassium 4.0 mmol/L (3.4-5.0); Sodium 136 mmol/L (137-145)
[2025-06-10] MEDS: ROSUVASTATIN 10 MG TABLET PO (08:30)
[2025-06-10] MEDS: TAMSULOSIN HCL 0.4 MG CAPSULE PO (08:30)
[2025-06-10] MEDS: DOCUSATE SODIUM 100 MG CAPSULE 200 MG PO ×2 (08:30→16:14)
[2025-06-10] MEDS: HYDROXYCHLOROQUINE SULFATE 200 MG TABLET 400 MG PO (08:30)
[2025-06-10] MEDS: LINACLOTIDE 145 MCG CAPSULE 290 MCG PO (08:31)
[2025-06-10] MEDS: FOLIC ACID 1 MG TABLET 2 MG PO (08:31)
[2025-06-10] MEDS: DULoxetine HCL 60 MG CAPSULE.DR PO (08:31)
[2025-06-10] MEDS: ASPIRIN 81 MG ENTERIC TABLET PO (08:31)
[2025-06-10] MEDS: GABAPENTIN 100 MG CAPSULE 200 MG PO ×2 (08:31→16:14)
[2025-06-10] MEDS: CHOLECALCIFEROL (VITAMIN D3) 125 MCG (5,000 UNITS) TABLET PO (08:31)
[2025-06-10] MEDS: oxyBUTYnin CHLORIDE XL 5 MG TAB.ER.24 10 MG PO (08:31)
[2025-06-10] MEDS: buPROPion HCL XL (24 HR) 150 MG TABCR PO (08:31)
[2025-06-10] MEDS: oxyCODONE HCL (*CRX) 5 MG TAB IR 10 MG PO ×2 (08:39→16:14)
--- NOTE | 2025-06-10 10:02 | P.DS_ITS ---
DS: Admitting Diagnosis Discharge Date 06/10 Admitting Diagnosis flank pain DS: Discharge Diagnosis Discharge Diagnosis (1) NORAH (acute kidney injury): Code(s): N17.9 - Acute kidney failure, unspecified Status: Acute (2) Hematuria: Code(s): R31.9 - Hematuria, unspecified Status: Acute (3) Cystitis: Code(s): N30.90 - Cystitis, unspecified without hematuria Status: Acute (4) Catheter-associated urinary tract infection: Code(s): T83.511A - Infection and inflammatory reaction due to indwelling urethral catheter, initial encounter; N39.0 - Urinary tract infection, site not specified Status: Acute DS: Summary Hospital Course Hospital Course: Chief Complaint: Dysuria, weakness, bilateral flank pain 70-year-old female presents to [facility] on 06/07/2025 complaining of burning on urination and weakness. She had just presented in been discharged to this ER on 06/06/2025 on Macrobid for UTI. Past medical history obesity class 1, GERD, depression, asthma, hyperlipidemia, CAD, hypertension, OWEN. Patient presented 24 hours after ER discharge on Macrobid for UTI with worsening symptoms including burning on urination, urinary frequency/urgency, bilateral flank pain, suprapubic discomfort, nausea with dry heaving, and hematuria. Patient has suprapubic catheter and history of sepsis from UTI in May 2025. Urologist at [facility] recommended ER evaluation. Patient admitted for complicated UTI with nephrolithiasis. Vitals stable on admission (BP 123/61, HR 76, afebrile, O2 sat 98% RA). Labs notable for Hgb 10.1 (below baseline), elevated Cr 1.19 (baseline 0.68-1.0), and positive urinalysis. CT urogram showed nonobstructing left renal calcification. Urine culture from 06/06 grew gram-negative bacilli 50-100k CFU. Treated with IV ceftriaxone, morphine for pain control, Zofran, and 1L IVF resuscitation. Suprapubic catheter exchanged. Patient passed kidney stone on 06/09/25 with symptom improvement. Pt is to f/u with materials manager/urologist at [facility] within 1-2 weeks or sooner if needed. Status at Discharge Functional status at discharge: independent ambulation Overall status at discharge: patient is progressing back to baseline Time Spent with Patient Time attestation: Total time spent providing and/or coordinating discharge services: Exam Narrative: resting in bed, Const: General: comfortable and no acute distress Other: A&O x3 HENMT: Other: Tacky mucous membranes Eyes: Pupils: Equal, round and reactive pupils present Resp: Effort & Inspection: normal respiratory effort Auscultation: clear to auscultation bilaterally Cardio: Rate: regular rate Rhythm: regular rhythm Neuro: Cranial nerves: Yes Equal, round and reactive pupils present Extrem: General: no edema Psych: Affect: normal affect DS: Data Data Completed and Pending Labs on day of discharge: Labs from last 24 hours 06/10/25 06:13 WBC 4.2 L RBC 3.27 L Hgb 10.8 L Hct 34.8 L MCV 106.4 H MCH 33.0 MCHC 31.0 L RDW 13.8 Plt Count 130 L MPV 10.3 % Immature Plt Fraction 5.2 Sodium 136 L Potassium 4.0 Chloride 110 H Carbon Dioxide 22 Anion Gap 4 BUN 20 H Creatinine 1.10 H Estim Creat Clear Calc 41 Estimated GFR 49 L Glucose 83 Calcium 8.7 Preliminary micro results at discharge 06/07/25 23:49 - Preliminary Urine Clean Catch Pseudomonas aeruginosa Discharge Plan Discharge Attending physician on discharge: Enrico Liang Discharging Clinician: Anna Murphy Patient Disposition: Home Activity: november shower Diet: heart healthy Patient Instructions: Antibiotic Form Patient Language: Luxembourgish Stand Alone Forms: General Discharge Information Follow-up/Referrals: [facility] [Provider Group] - 1 Week Referral Note: f/u with your established urologist Mikhail,JACQUI Vickers [Primary Care Provider, Unknown] - 2 Weeks Discharge Medications: New tamsulosin 0.4 mg Capsule 0.4 mg PO QAM Qty: 7 0RF Continued duloxetine 60 mg capsule,delayed release(DR/EC) 60 mg PO DAILY potassium chloride 10 mEq tablet extended release 10 meq PO DAILY montelukast 10 mg tablet 10 mg PO QHS hydroxychloroquine 200 mg tablet 400 mg PO DAILY bupropion HCl 150 mg tablet extended release 24 hr 150 mg PO QAM aspirin [Adult Low Dose Aspirin] 81 mg tablet,delayed release (DR/EC) 81 mg PO DAILY folic acid 1 mg tablet 2 mg PO DAILY rosuvastatin 10 mg tablet 10 mg PO DAILY acetaminophen 500 mg capsule 500 mg PO Q6H PRN (Reason: pain) Qty: 14 0RF docusate sodium [Colace] 100 mg Capsule 200 mg PO BID cholecalciferol (vitamin D3) [Vitamin D3] 125 mcg (5,000 unit) Tablet 125 mcg PO DAILY ropinirole 0.5 mg Tablet 1 mg PO HS bumetanide 1 mg tablet 1 mg PO BID gabapentin 100 mg capsule 200 mg PO BID Patient Comments: TAKES 400MG AT HS Orencia 125 mg/mL Syringe 125 mg SUBCUT WEEKLY Patient Comments: methotrexate sodium 2.5 mg tablet 17.5 mg PO WEEKLY Patient Comments: TAKES ON WEDNESDAYS ondansetron 4 mg tablet,disintegrating 4 mg PO Q6H PRN (Reason: nausea and vomiting) Qty: 10 0RF cyclobenzaprine 5 mg tablet 5 mg PO HS PRN (Reason: muscle spasm) polyethylene glycol 3350 17 gram/dose powder 17 g PO DAILY PRN (Reason: constipation) oxycodone 10 mg tablet 10 mg PO Q8H PRN (Reason: pain) oxybutynin chloride 10 mg tablet extended release 24hr 10 mg PO DAILY ketoconazole 2 % shampoo 1 applic TOPICAL DAILY PRN (Reason: Dandruff) fluticasone propionate 50 mcg/actuation spray,suspension 2 spray INTRANASAL DAILY Patient Comments: Admin 2 sprays each nostril daily Linzess 290 mcg capsule See Rx Instructions .ROUTE .COMPLEX Qty: 30 11RF Dose Instruction: TAKE 1 CAPSULE BY MOUTH EVERY DAY Rx Instructions: TAKE 1 CAPSULE BY MOUTH EVERY DAY Date of admission: 06/08/25 07:51 Primary Care Provider: Mikhail,Alee Admitting Provider: Clara Polo Attending physician on admission: Clara Polo Condition: Stable
[2025-06-10] MEDS: ONDANSETRON INJ 4 MG/2 ML VIAL IV PUSH (11:07)
--- NOTE | 2025-06-10 12:25 | P.PNIM_ITS ---
Assessment and Plan Assessment and Plan (1) NORAH (acute kidney injury): Code(s): N17.9 - Acute kidney failure, unspecified Status: Acute (2) Hematuria: Code(s): R31.9 - Hematuria, unspecified Status: Acute (3) Cystitis: Code(s): N30.90 - Cystitis, unspecified without hematuria Status: Acute (4) Catheter-associated urinary tract infection: Code(s): T83.511A - Infection and inflammatory reaction due to indwelling urethral catheter, initial encounter; N39.0 - Urinary tract infection, site not specified Status: Acute Plan Symptoms worsened, failure of outpatient therapy. A repeat urine culture has been obtained. For now, continue ceftriaxone. Exchange new Lyles catheter. Follow urine culture. Follow renal function trend. Will not give additional fluid stress she had. Patient is on bumetanide at home. Morphine for pain control. - daily labs follow bc, u c/s 06/09 passed the kidney stone will continue with pain regimen-will need to try to find PO options that work anticipate d/c home in am with a f/u with urology 06/10 urine culture resulted and growing pseudomonas [id number]. will stop Rocephin as not a good choice for coverage will start cipro for now 750 mg bid and wait for sensitivities - pt is updated and agreeable Patient wishes to be full code. SCDs. Heart healthy diet. Medical Record Review I have reviewed the following patient records and this information was taken into consideration when formulating the assessment and plan.: previous labs Time Spent With Patient Time with patient: 25 - 35 minutes Subjective Date/time seen: 06/10/25 12:25 Interval history: 70-year-old female presents to [facility] on 06/07/2025 complaining of burning on urination and weakness. She had just presented in been discharged to this ER on 06/06/2025 on Macrobid for UTI. Past medical history obesity class 1, GERD, depression, asthma, hyperlipidemia, CAD, hypertension, OWEN. Also complains of urinary frequency, urinary urgency, bilateral flank pain, suprapubic discomfort, nausea with dry heaving, hematuria. She did have sepsis from UTI in May. She does see a urologist at [facility], they told her to present to the ER. She has suprapubic catheter. Blood pressure 123/61, heart rate 76, afebrile, saturating 98% on room air. Hemoglobin 10.1, lower than her baseline of 11.5-12. INR 1.1, chloride 114, anion gap 3, bicarb 21, BUN 24, serum creatinine 1.19. Serum creatinine was 1.20 on previous ER visit on 06/06/2025 which is above her baseline of 0.68-1. Lipase 22. Urinalysis essentially unchanged from the day prior with positive nitrate, positive blood, leukocyte esterase, WBC, no bacteria seen. CT urogram without hydronephrosis, nonobstructing calcification in the left kidney, simple right cyst, symmetric renal enhancement, chronic granulomatous disease the liver and spleen, mass lesion involving the caudate lobe of the liver favoring hemangioma which is stable, cholecystectomy, fatty replacement of the pancreas, suprapubic catheter extending to the urinary bladder, [place] mildly thickened bladder wall. No bowel obstruction. Official radiology interpretation is pending. Urine culture from 06/06/2025 demonstrating Gram-negative bacilli 50- 100,000 colony-forming units. Previous urine culture on 10/07/2024 demonstrating E coli pansensitive. Patient was given morphine, 1 L isotonic fluid resuscitation, ceftriaxone 1 g, Zofran. Pt is seen and examined. She just got pain and nausea meds, so feeling ok. 06/09 passed the stone today. still c/o pain. worried that pain would be unbearable if she goes home. 06/10 pain is better, no fever, no chills, no chest pain, no sob Review of Systems Review of Systems: All systems reviewed & are unremarkable except as noted in HPI and below (Subjective) Exam Narrative: resting in bed, Const: General: comfortable and no acute distress Other: A&O x3 HENMT: Other: Tacky mucous membranes Eyes: Pupils: Equal, round and reactive pupils present Resp: Effort & Inspection: normal respiratory effort Auscultation: clear to auscultation bilaterally Cardio: Rate: regular rate Rhythm: regular rhythm Neuro: Cranial nerves: Yes Equal, round and reactive pupils present Extrem: General: no edema Psych: Affect: normal affect Objective Data Vital Signs Vital Signs: Vital Signs - 24 hr 06/09/25 14:00 06/09/25 19:38 06/09/25 20:44 Temperature 96.6 F L 98.1 F Pulse Rate 69 72 Respiratory Rate 18 16 Blood Pressure 94/44 L 103/48 L Pulse Oximetry 96 97 Oxygen Delivery 06/10/25 02:35 06/10/25 05:30 06/10/25 08:00 Temperature 97.7 F Pulse Rate 74 72 Respiratory Rate 18 Blood Pressure 109/51 L 112/54 L Pulse Oximetry 97 Oxygen Delivery Room Air Intake/Output Intake/Output: Intake & Output 06/07/25 06/08/25 06/09/25 06/10/25 23:59 23:59 23:59 23:59 Intake Total 2210 2120 350 Output Total 2425 1900 1720 Balance -215 220 -1370 Meds/Results Medications: Active Medications Generic Name Dose Route Start Last Admin Trade Name Freq PRN Reason Stop Dose Admin Acetaminophen 500 mg 06/08/25 12:39 06/08/25 21:37 Acetaminophen 500 Mg Tablet PO 500 mg Q6H PRN Administration PAIN RATED 1-3 Aspirin 81 mg 06/08/25 12:45 06/10/25 08:31 Aspirin 81 Mg Enteric Tablet PO 81 mg DAILY JULIA Administration Bupropion HCl 150 mg 06/08/25 12:45 06/10/25 08:31 Bupropion Hcl Xl (24 Hr) 150 Mg Tabcr PO 150 mg QAM JULIA Administration Ciprofloxacin 750 mg 06/10/25 11:30 Ciprofloxacin 250 Mg Tablet PO 06/16/25 21:01 Q12HR JULIA Cyclobenzaprine HCl 5 mg 06/08/25 12:39 06/10/25 02:41 Cyclobenzaprine Hcl 5 Mg Tablet PO 5 mg HS PRN Administration Muscle Spasm Docusate Sodium 200 mg 06/08/25 17:00 06/10/25 08:30 Docusate Sodium 100 Mg Capsule PO 200 mg BID JULIA Administration Duloxetine HCl 60 mg 06/08/25 12:50 06/10/25 08:31 Duloxetine Hcl 60 Mg Capsule.Dr PO 60 mg DAILY JULIA Administration Fluticasone Propionate 2 spray 06/09/25 21:00 06/10/25 00:04 Fluticasone Propionate 0.05% Na Spr 16 Gm Btl (*Bkc) NASAL Not Given HS JULIA Folic Acid 2 mg 06/08/25 12:50 06/10/25 08:31 Folic Acid 1 Mg Tablet PO 2 mg DAILY JULIA Administration Gabapentin 200 mg 06/08/25 17:00 06/10/25 08:31 Gabapentin 100 Mg Capsule PO 200 mg BID JULIA Administration Hydroxychloroquine Sulfate 400 mg 06/08/25 12:50 06/10/25 08:30 Hydroxychloroquine Sulfate 200 Mg Tablet PO 400 mg DAILY JULIA Administration Linaclotide 290 mcg 06/08/25 12:50 06/10/25 08:31 Linaclotide 145 Mcg Capsule PO 290 mcg DAILY [facility] Administration Montelukast Sodium 10 mg 06/08/25 21:00 06/09/25 19:46 Montelukast Sodium 10 Mg Tablet PO 10 mg QHS [facility] Administration Morphine Sulfate 4 mg 06/08/25 02:12 06/09/25 12:47 Morphine Sulfate (*Crx) 4 Mg/Ml Inj IV PUSH 4 mg Q2H PRN Administration Pain Rated 7-10 Ondansetron HCl 4 mg 06/08/25 08:01 06/10/25 11:07 Ondansetron Inj 4 Mg/2 Ml Vial IV PUSH 4 mg Q4H PRN Administration Nausea And Vomiting Ondansetron HCl 4 mg 06/08/25 12:39 06/09/25 11:49 Ondansetron Hcl Odt 4 Mg Tablet PO 4 mg Q6H PRN Administration Nausea And Vomiting Oxybutynin Chloride 10 mg 06/08/25 12:50 06/10/25 08:31 Oxybutynin Chloride Xl 5 Mg Tab.Er.24 PO 10 mg DAILY [facility] Administration Oxycodone HCl 10 mg 06/08/25 12:39 06/10/25 08:39 Oxycodone Hcl (*Crx) 5 Mg Tab Ir PO 10 mg Q8H PRN Administration PAIN RATED 7-10 Polyethylene Glycol 17 gm 06/08/25 12:39 Polyethylene Glycol 3350 17 Gm Powd.Pack PO DAILY PRN Constipation Ropinirole HCl 1 mg 06/08/25 21:00 06/09/25 23:24 Ropinirole Hcl 1 Mg Tablet PO Not Given HS [facility] Rosuvastatin Calcium 10 mg 06/08/25 12:50 06/10/25 08:30 Rosuvastatin 10 Mg Tablet PO 10 mg DAILY JULIA Administration Selenium Sulfide 1 applic 06/08/25 12:46 Selenium Sulfide 1% Shampoo 207 Ml TOPICAL DAILY PRN Dandruff Tamsulosin HCl 0.4 mg 06/10/25 09:00 06/10/25 08:30 Tamsulosin Hcl 0.4 Mg Capsule PO 06/17/25 08:59 0.4 mg QAM JULIA Administration Vitamin D 125 mcg 06/08/25 12:45 06/10/25 08:31 Cholecalciferol (Vitamin D3) 125 Mcg (5,000 Units) Tablet PO 125 mcg DAILY JULIA Administration Radiology Results: ITS Impressions Abdomen/Pelvis CT 06/08/25 08:50 IMPRESSION: 1. Nonobstructing left kidney stone. Labs Labs: Laboratory Results - last 24 hr 06/10/25 06:13 WBC 4.2 L RBC 3.27 L Hgb 10.8 L Hct 34.8 L MCV 106.4 H MCH 33.0 MCHC 31.0 L RDW 13.8 Plt Count 130 L MPV 10.3 % Immature Plt Fraction 5.2 Sodium 136 L Potassium 4.0 Chloride 110 H Carbon Dioxide 22 Anion Gap 4 BUN 20 H Creatinine 1.10 H Estim Creat Clear Calc 41 Estimated GFR 49 L Glucose 83 Calcium 8.7
[2025-06-10] MEDS: CIPROFLOXACIN 250 MG TABLET 750 MG PO ×2 (12:27→20:28)
[2025-06-10 14:00] VITALS: BP 106/48; PULSE 76; RESP 18; TEMP 36.1; O2SAT 97
[2025-06-10] MEDS: ACETAMINOPHEN 500 MG TABLET PO (18:41)
[2025-06-10] MEDS: FLUTICASONE PROPIONATE 0.05% NA SPR 16 GM BTL (*BKC) 2 SPRAY NASAL (20:28)
[2025-06-10] MEDS: MONTELUKAST SODIUM 10 MG TABLET PO (20:28)
[2025-06-10 22:00] VITALS: BP 94/40; PULSE 72; RESP 18; TEMP 36.4; O2SAT 97
[2025-06-11 06:00] VITALS: BP 102/48; PULSE 79; RESP 16; TEMP 36.3; O2SAT 95
[2025-06-11 06:12] LABS: Hematocrit 35.5 % (37.0-47.0); Hemoglobin 11.5 g/dL (12.0-15.0); Mean Corpuscular HGB Conc 32.4 g/dl (32-36); Mean Corpuscular Hemoglobin 32.8 pg (26-34); Mean Corpuscular Volume 101.1 fl (80-100); Platelet Count Result 151 k/mm3 (150-375); Red Blood Count 3.51 M/mm3 (4.2-5.4); White Blood Count 3.4 K/mm3 (4.5-10.0)
[2025-06-11 06:44] LABS: Anion Gap 6 mmol/L (4-12); Blood Urea Nitrogen 20 mg/dL (7-17); Calcium 9.2 mg/dL (8.4-10.2); Carbon Dioxide 26 mmol/L (22-30); Chloride 105 mmol/L (98-107); Estimated CRCL calculation 40 ml/min; Estimated Glomerular Filt Rate 48; Glucose 90 mg/dL (65-110); Potassium 3.8 mmol/L (3.4-5.0); Sodium 137 mmol/L (137-145)
[2025-06-11] MEDS: CHOLECALCIFEROL (VITAMIN D3) 125 MCG (5,000 UNITS) TABLET PO (08:55)
[2025-06-11] MEDS: oxyBUTYnin CHLORIDE XL 5 MG TAB.ER.24 10 MG PO (08:56)
[2025-06-11] MEDS: ROSUVASTATIN 10 MG TABLET PO (08:56)
[2025-06-11] MEDS: CIPROFLOXACIN 250 MG TABLET 750 MG PO (08:56)
[2025-06-11] MEDS: FOLIC ACID 1 MG TABLET 2 MG PO (08:56)
[2025-06-11] MEDS: DULoxetine HCL 60 MG CAPSULE.DR PO (08:56)
[2025-06-11] MEDS: TAMSULOSIN HCL 0.4 MG CAPSULE PO (08:57)
[2025-06-11] MEDS: ASPIRIN 81 MG ENTERIC TABLET PO (08:57)
[2025-06-11] MEDS: GABAPENTIN 100 MG CAPSULE 200 MG PO ×2 (08:57→17:16)
[2025-06-11] MEDS: DOCUSATE SODIUM 100 MG CAPSULE 200 MG PO ×2 (08:57→17:14)
[2025-06-11] MEDS: HYDROXYCHLOROQUINE SULFATE 200 MG TABLET 400 MG PO (08:57)
[2025-06-11] MEDS: buPROPion HCL XL (24 HR) 150 MG TABCR PO (08:57)
[2025-06-11] MEDS: LINACLOTIDE 145 MCG CAPSULE 290 MCG PO (09:30)
[2025-06-11] MEDS: oxyCODONE HCL (*CRX) 5 MG TAB IR 10 MG PO ×2 (12:04→21:16)
[2025-06-11 14:00] VITALS: BP 103/56; PULSE 68; RESP 17; TEMP 36.5; O2SAT 95
--- NOTE | 2025-06-11 14:28 | WPDURCON ---
Assessment and Plan Assessment and plan (1) Chronic suprapubic catheter: Code(s): Z93.59 - Other cystostomy status Status: Acute Assessment and Plan: 70yF with SPT admitted for UTI Plan - Urology exchanged patient's 16 Romanian suprapubic catheter at the bedside in sterile fashion. Catheter was flushed and irrigated to confirm appropriate positioning - Given patient's acute UTI, recommend maintaining suprapubic catheter to gravity drainage rather than intermittent drainage wtih catheter plug. She may resume using a catheter plug upon discharge home. I counseled the patient to drain her suprapubic tube at least 4-6 times daily at home - Urine culture reviewed, growing Pseudomonas resistant to fluoroquinolones, which patient was on empirically previously. She has been since transitioned to IV ceftazidime for culture and sensitivity. Recommend eventually transitioning to oral antibiotic per culture and sensitivity results, will defer to primary team - Patient to follow-up with her established Urology team at [facility] following hospital discharge. She expressed understanding and agreement - Remainder of management per primary - Urology will follow peripherally at this time; please notify our team if further questions/concerns Urology Consult Note HPI Date Seen: 06/11/25 Requesting Physician: Clara Polo MD Primary Care Provider: Alee Elizondo, PA Consult Narrative Narrative: Nohemy Roy is a 70 year old female with PMHx of CAD, HTN, HLD, GERD, depression, asthma, OWEN for whom urology was consulted for suprapubic catheter exchange. The patient presented to the ER for suprapubic discomfort and was was admitted 06/08/2025 for UTI. She reports associated nausea but denies associated fevers, chills, CP, SOB, lightheadedness, or dizziness. She was previously on ciprofloxacin which was found to be resistant to her urine culture growing Pseudomonas which resulted earlier today. Since that time she has been switched to IV ceftazidime. The patient follows with [facility] for her urologic care including management of her SPT. She typically undergoes monthly SP tube exchanges, which she reports she was was due for yesterday. At her baseline, she has a catheter plug on her SPT which she reports she removes to drain her bladder on average 3 times daily. She has had a catheter plug in place during this hospitalization. Review of Systems Review of Systems: A fourteen point review of systems was performed and is negative except as noted in HPI. [facility] Past Medical History Medical History (Updated 06/08/25 @ 07:05 by Clara Polo MD) Obese Arthritis OWEN (obstructive sleep apnea) GERD (gastroesophageal reflux disease) Kidney stones Depression Angina of effort Asthma Hyperlipidemia CAD (coronary atherosclerotic disease) H/O: HTN (hypertension) Moderate persistent asthma without complication Obstructive sleep apnea (adult) (pediatric) Rhinitis Surgical History Surgical History (Updated 06/11/25 @ 15:03 by Diogenes Mahoney MD) Chronic suprapubic catheter H/O dilation and curettage History of lithotripsy History of hysterectomy History of repair of hiatal hernia Laparoscopic repair hiatal hernia, laparoscopic Leonor fundoplication 12/14/23 History of left knee replacement History of cholecystectomy S/P appy Family History Family History Mother Chronic HF (heart failure) Family history of diabetes mellitus in first degree relative Cerebrovascular accident Father Family history of malignant neoplasm of kidney Family history of liver disease Carcinoma of colon Atrial fibrillation Other Acute myocardial infarction Asthma Diabetes mellitus Family history of arthritis Family history of cardiovascular disease Family history of chronic obstructive pulmonary disease Family history of congestive heart failure Hypertension Malignant neoplasm of prostate Social History Social History Smoking status: Never smoker Alcohol intake: never Substance use: never Substance use type: does not use Lack of Transportation: No Lack of Food: Never True Current Housing: I Have Housing Concerned About Future Housing: No Difficulty Paying Gas/Electric Bills: No Difficulty Paying for Meds: No Currently Unemployed: No Education: High School Diploma/GED Difficulty w/ Childcare or Family Care: Decline to Answer Living arrangements: alone Spiritual care concerns: No Meds Home Medications and Allergies Home Medications ?Medication ?Instructions ?Recorded ?Confirmed ?Type aspirin 81 mg tablet,delayed 81 mg PO DAILY 06/20/19 06/08/25 History release (Adult Low Dose Aspirin) bupropion HCl 150 mg 24 hr tablet, 150 mg PO QAM 06/20/19 06/08/25 History extended release hydroxychloroquine 200 mg tablet 400 mg PO DAILY 06/20/19 06/08/25 History montelukast 10 mg tablet 10 mg PO QHS 06/20/19 06/08/25 History potassium chloride 10 mEq 10 meq PO DAILY 06/20/19 06/08/25 History tablet,extended release Held on 06/08/25. Instructions: .Provider Order folic acid 1 mg tablet 2 mg PO DAILY 06/21/19 06/08/25 History duloxetine 60 mg capsule,delayed 60 mg PO DAILY 08/20/19 06/08/25 History release cholecalciferol (vitamin D3) 125 125 mcg PO DAILY 03/08/21 06/08/25 History mcg (5,000 unit) tablet (Vitamin D3) docusate sodium 100 mg capsule 200 mg PO BID 03/08/21 06/08/25 History (Colace) ropinirole 0.5 mg tablet 1 mg PO HS 07/14/21 06/08/25 History abatacept 125 mg/mL subcutaneous 125 mg subcut WEEKLY 07/22/23 06/08/25 History syringe (Orencia) Held on 06/08/25. Instructions: .Provider Order bumetanide 1 mg tablet 1 mg PO BID 07/22/23 06/08/25 History Held on 06/08/25. Instructions: .Provider Order gabapentin 100 mg capsule 200 mg PO BID 07/22/23 06/08/25 History linaclotide 290 mcg capsule See Rx Instructions .Route 10/11/23 06/08/25 Rx (Linzess) .COMPLEX #30 caps methotrexate sodium 2.5 mg tablet 17.5 mg PO WEEKLY 12/05/23 06/08/25 History Held on 06/08/25. Instructions: .Provider Order rosuvastatin 10 mg tablet 10 mg PO DAILY 09/18/24 06/08/25 History acetaminophen 500 mg capsule 500 mg PO Q6H PRN pain #14 caps 11/05/24 06/08/25 Rx ondansetron 4 mg disintegrating 4 mg PO Q6H PRN nausea and 06/06/25 06/08/25 Rx tablet vomiting #10 tabs cyclobenzaprine 5 mg tablet 5 mg PO HS PRN muscle spasm 06/08/25 06/08/25 History fluticasone propionate 50 2 spray intranasal DAILY 06/08/25 06/08/25 History mcg/actuation nasal spray,suspension ketoconazole 2 % shampoo 1 applic topical DAILY PRN Dandruff 06/08/25 06/08/25 History oxybutynin chloride 10 mg 10 mg PO DAILY 06/08/25 06/08/25 History tablet,extended release 24 hr oxycodone 10 mg tablet 10 mg PO Q8H PRN pain 06/08/25 06/08/25 History polyethylene glycol 3350 17 17 g PO DAILY PRN constipation 06/08/25 06/08/25 History gram/dose oral powder tamsulosin 0.4 mg capsule 0.4 mg PO QAM #7 caps 06/10/25 Rx Allergies Allergy/AdvReac Type Severity Reaction Status Date / Time meperidine Allergy Severe HIVES Verified 06/08/25 04:40 Penicillins Allergy Severe RASH Verified 06/08/25 04:40 hydrocodone Allergy Intermediate HIVES Verified 06/08/25 04:40 Vital Signs Vital Signs - 24 hr 06/10/25 22:00 06/11/25 06:00 Temperature 36.4 C 36.3 C L Pulse Rate 72 79 Respiratory Rate 18 16 Blood Pressure 94/40 L 102/48 L Pulse Oximetry 97 95 Exam Narrative: General: Alert, no acute distress Head: Normocephalic, atraumatic Eyes: Extraocular movements intact Neck: No JVD, trachea midline Respiratory: Symmetric chest rise, nonlabored breathing on room air CV: Normal rate, adequate peripheral perfusion Abdomen: Soft, nontender, nondistended : [address] with catheter plug. Skin: Warm/dry Extremities: LUE congenital malformation. No peripheral edema, no cyanosis Neuro: No focal deficits Psych: Answers questions appropriately, appropriate mood Results Labs 06/11/25 06:03 06/11/25 06:03 Labs: Short CBC 06/11/25 Range/Units 06:03 WBC 3.4 L (4.5-10.0) K/mm3 Hgb 11.5 L (12.0-15.0) g/dL Hct 35.5 L (37.0-47.0) % Plt Count 151 (150-375) k/mm3 BMP 06/11/25 06:03 Sodium 137 Potassium 3.8 Chloride 105 Carbon Dioxide 26 BUN 20 H Creatinine 1.13 H Glucose 90 Calcium 9.2
[2025-06-11] MEDS: NACL 0.9% IRRIGATION POUR BOTTL 1,000 ML 1000 ML (14:30)
--- NOTE | 2025-06-11 15:07 | WPDPROCEDUR ---
Procedures Other Procedures Procedure 1: Other Procedure: Informed consent was obtained from the patient for bedside suprapubic catheter exchange. The existing suprapubic catheter balloon was deflated and the insertion site was prepped with cleansing solution. The existing suprapubic catheter was then removed and I inserted a new 16 Malay catheter through the suprapubic tract into the bladder under sterile conditions. Clear yellow urine return was noted. 10 mL sterile water was inflated into the Lyles catheter balloon. Next, I flushed and irrigated the patient's catheter with sterile saline to confirm appropriate placement intravesically. The catheter was then connected to a gravity drainage bag and secured to the patient's right upper thigh using a StatLock. The patient tolerated the procedure well there were no immediate complications noted.
[2025-06-11] MEDS: LIDOCAINE 1% LOCAL INJ 2 ML AMPUL 5 ML INFILTRATE (15:45)
[2025-06-11] MEDS: cefTAZidime INJ 1 GM in SODIUM CHLORIDE 0.9% IV 50 ML IVPB ×2 (17:14→21:03)
--- NOTE | 2025-06-11 17:34 | PM.IMPN2 ---
Assessment and Plan Assessment and Plan (1) NORAH (acute kidney injury): Code(s): N17.9 - Acute kidney failure, unspecified Status: Acute (2) Hematuria: Code(s): R31.9 - Hematuria, unspecified Status: Acute (3) Cystitis: Code(s): N30.90 - Cystitis, unspecified without hematuria Status: Acute (4) Catheter-associated urinary tract infection: Code(s): T83.511A - Infection and inflammatory reaction due to indwelling urethral catheter, initial encounter; N39.0 - Urinary tract infection, site not specified Status: Acute Plan Symptoms worsened, failure of outpatient therapy. A repeat urine culture has been obtained. For now, continue ceftriaxone. Exchange new Lyles catheter. Follow urine culture. Follow renal function trend. Will not give additional fluid stress she had. Patient is on bumetanide at home. Morphine for pain control. - daily labs follow bc, u c/s 06/09 passed the kidney stone will continue with pain regimen-will need to try to find PO options that work anticipate d/c home in am with a f/u with urology 06/10 urine culture resulted and growing pseudomonas [phone]. will stop Rocephin as not a good choice for coverage will start cipro for now 750 mg bid and wait for sensitivities - pt is updated and agreeable 06/11 she is due for cath exchange- will consult urology to help with them urine c/s reviewed. discussed with idSteven started. Pt needs 14 total doses. will order midline and contact care coordination for home health/iv maintenance. Patient wishes to be full code. SCDs. Heart healthy diet. Medical Record Review I have reviewed the following patient records and this information was taken into consideration when formulating the assessment and plan.: previous labs Subjective Date/time seen: 06/11/25 17:34 Interval history: 70-year-old female presents to [facility] on 06/07/2025 complaining of burning on urination and weakness. She had just presented in been discharged to this ER on 06/06/2025 on Macrobid for UTI. Past medical history obesity class 1, GERD, depression, asthma, hyperlipidemia, CAD, hypertension, OWEN. Also complains of urinary frequency, urinary urgency, bilateral flank pain, suprapubic discomfort, nausea with dry heaving, hematuria. She did have sepsis from UTI in May. She does see a urologist at [facility], they told her to present to the ER. She has suprapubic catheter. Blood pressure 123/61, heart rate 76, afebrile, saturating 98% on room air. Hemoglobin 10.1, lower than her baseline of 11.5-12. INR 1.1, chloride 114, anion gap 3, bicarb 21, BUN 24, serum creatinine 1.19. Serum creatinine was 1.20 on previous ER visit on 06/06/2025 which is above her baseline of 0.68-1. Lipase 22. Urinalysis essentially unchanged from the day prior with positive nitrate, positive blood, leukocyte esterase, WBC, no bacteria seen. CT urogram without hydronephrosis, nonobstructing calcification in the left kidney, simple right cyst, symmetric renal enhancement, chronic granulomatous disease the liver and spleen, mass lesion involving the caudate lobe of the liver favoring hemangioma which is stable, cholecystectomy, fatty replacement of the pancreas, suprapubic catheter extending to the urinary bladder, [place] mildly thickened bladder wall. No bowel obstruction. Official radiology interpretation is pending. Urine culture from 06/06/2025 demonstrating Gram-negative bacilli 50-100,000 colony-forming units. Previous urine culture on 10/07/2024 demonstrating E coli pansensitive. Patient was given morphine, 1 L isotonic fluid resuscitation, ceftriaxone 1 g, Zofran. Pt is seen and examined. She just got pain and nausea meds, so feeling ok. 06/09 passed the stone today. still c/o pain. worried that pain would be unbearable if she goes home. 06/10 pain is better, no fever, no chills, no chest pain, no sob 06/11 pt is doing well. urine c/s reviewed pt needs to be on IV antibiotics for 1 week. she is aware. Review of Systems Review of Systems: All systems reviewed & are unremarkable except as noted in HPI and below (Subjective) Exam Narrative: resting in bed, Const: Other: A&O x3 HENMT: Other: Tacky mucous membranes Objective Data Vital Signs Vital Signs: Vital Signs - 24 hr 06/10/25 22:00 06/11/25 06:00 06/11/25 14:00 Temperature 97.6 F 97.3 F L 97.7 F Pulse Rate 72 79 68 Respiratory Rate 18 16 17 Blood Pressure 94/40 L 102/48 L 103/56 L Pulse Oximetry 97 95 95 Intake/Output Intake/Output: Intake & Output 06/08/25 06/09/25 06/10/25 06/11/25 23:59 23:59 23:59 23:59 Intake Total 2210 2120 830 888 Output Total 2425 1900 2920 1800 Balance -215 220 -2090 -912 Meds/Results Medications: Active Medications Generic Name Dose Route Start Last Admin Trade Name Freq PRN Reason Stop Dose Admin Acetaminophen 500 mg 06/08/25 12:39 06/10/25 18:41 Acetaminophen 500 Mg Tablet PO 500 mg Q6H PRN Administration PAIN RATED 1-3 Aspirin 81 mg 06/08/25 12:45 06/11/25 08:57 Aspirin 81 Mg Enteric Tablet PO 81 mg DAILY JULIA Administration Bupropion HCl 150 mg 06/08/25 12:45 06/11/25 08:57 Bupropion Hcl Xl (24 Hr) 150 Mg Tabcr PO 150 mg QAM JULIA Administration Cyclobenzaprine HCl 5 mg 06/08/25 12:39 06/10/25 20:36 Cyclobenzaprine Hcl 5 Mg Tablet PO 5 mg HS PRN Administration Muscle Spasm Docusate Sodium 200 mg 06/08/25 17:00 06/11/25 17:14 Docusate Sodium 100 Mg Capsule PO 200 mg BID JULIA Administration Duloxetine HCl 60 mg 06/08/25 12:50 06/11/25 08:56 Duloxetine Hcl 60 Mg Capsule.Dr PO 60 mg DAILY JULIA Administration Fluticasone Propionate 2 spray 06/09/25 21:00 06/10/25 20:28 Fluticasone Propionate 0.05% Na Spr 16 Gm Btl (*Bkc) NASAL 2 spray HS JULIA Administration Folic Acid 2 mg 06/08/25 12:50 06/11/25 08:56 Folic Acid 1 Mg Tablet PO 2 mg DAILY JULIA Administration Gabapentin 200 mg 06/08/25 17:00 06/11/25 17:16 Gabapentin 100 Mg Capsule PO 200 mg BID JULIA Administration Hydroxychloroquine Sulfate 400 mg 06/08/25 12:50 06/11/25 08:57 Hydroxychloroquine Sulfate 200 Mg Tablet PO 400 mg DAILY JULIA Administration Ceftazidime 1 gm/ Sodium 50 mls @ 100 mls/hr 06/11/25 14:15 06/11/25 17:14 Chloride IVPB 06/17/25 21:29 100 mls/hr Q12HR JULIA Administration Linaclotide 290 mcg 06/08/25 12:50 06/11/25 09:30 Linaclotide 145 Mcg Capsule PO 290 mcg DAILY JULIA Administration Montelukast Sodium 10 mg 06/08/25 21:00 06/10/25 20:28 Montelukast Sodium 10 Mg Tablet PO 10 mg QHS JULIA Administration Morphine Sulfate 4 mg 06/08/25 02:12 06/09/25 12:47 Morphine Sulfate (*Crx) 4 Mg/Ml Inj IV PUSH 4 mg Q2H PRN Administration Pain Rated 7-10 Ondansetron HCl 4 mg 06/08/25 08:01 06/10/25 11:07 Ondansetron Inj 4 Mg/2 Ml Vial IV PUSH 4 mg Q4H PRN Administration Nausea And Vomiting Ondansetron HCl 4 mg 06/08/25 12:39 06/09/25 11:49 Ondansetron Hcl Odt 4 Mg Tablet PO 4 mg Q6H PRN Administration Nausea And Vomiting Oxybutynin Chloride 10 mg 06/08/25 12:50 06/11/25 08:56 Oxybutynin Chloride Xl 5 Mg Tab.Er.24 PO 10 mg DAILY JULIA Administration Oxycodone HCl 10 mg 06/08/25 12:39 06/11/25 12:04 Oxycodone Hcl (*Crx) 5 Mg Tab Ir PO 10 mg Q8H PRN Administration PAIN RATED 7-10 Polyethylene Glycol 17 gm 06/08/25 12:39 Polyethylene Glycol 3350 17 Gm Powd.Pack PO DAILY PRN Constipation Ropinirole HCl 1 mg 06/08/25 21:00 06/10/25 20:28 Ropinirole Hcl 1 Mg Tablet PO 1 mg HS JULIA Administration Rosuvastatin Calcium 10 mg 06/08/25 12:50 06/11/25 08:56 Rosuvastatin 10 Mg Tablet PO 10 mg DAILY JULIA Administration Selenium Sulfide 1 applic 06/08/25 12:46 Selenium Sulfide 1% Shampoo 207 Ml TOPICAL DAILY PRN Dandruff Sodium Chloride 10 ml 06/11/25 22:00 Saline Lock Flush IV PUSH Q8HR JULIA Sodium Chloride 10 ml 06/11/25 17:05 Saline Lock Flush IV PUSH PRN PRN Flush Sodium Chloride 20 ml 06/11/25 17:05 Saline Lock Flush IV PUSH PRN PRN after blood draws Tamsulosin HCl 0.4 mg 06/10/25 09:00 06/11/25 08:57 Tamsulosin Hcl 0.4 Mg Capsule PO 06/17/25 08:59 0.4 mg QAM JULIA Administration Vitamin D 125 mcg 06/08/25 12:45 06/11/25 08:55 Cholecalciferol (Vitamin D3) 125 Mcg (5,000 Units) Tablet PO 125 mcg DAILY JULIA Administration Radiology Results: ITS Impressions Abdomen/Pelvis CT 06/08/25 08:50 IMPRESSION: 1. Nonobstructing left kidney stone. Labs Labs: Laboratory Results - last 24 hr 06/11/25 06:03 WBC 3.4 L RBC 3.51 L Hgb 11.5 L Hct 35.5 L MCV 101.1 H MCH 32.8 MCHC 32.4 RDW 13.8 Plt Count 151 MPV 9.7 Sodium 137 Potassium 3.8 Chloride 105 Carbon Dioxide 26 Anion Gap 6 BUN 20 H Creatinine 1.13 H Estim Creat Clear Calc 40 Estimated GFR 48 L Glucose 90 Calcium 9.2
[2025-06-11] MEDS: MONTELUKAST SODIUM 10 MG TABLET PO (21:03)
[2025-06-11] MEDS: FLUTICASONE PROPIONATE 0.05% NA SPR 16 GM BTL (*BKC) 2 SPRAY NASAL (21:04)
[2025-06-11 22:00] VITALS: BP 110/58; PULSE 78; RESP 14; TEMP 36.7; O2SAT 90
[2025-06-11] MEDS: SALINE LOCK FLUSH 10 ML IV PUSH (22:08)
[2025-06-12 06:00] VITALS: BP 97/42; PULSE 66; RESP 16; TEMP 36.2; O2SAT 93
[2025-06-12] MEDS: SALINE LOCK FLUSH 10 ML IV PUSH ×3 (06:18→21:00)
[2025-06-12 07:44] LABS: Hematocrit 34.4 % (37.0-47.0); Hemoglobin 11.0 g/dL (12.0-15.0); Mean Corpuscular HGB Conc 32.0 g/dl (32-36); Mean Corpuscular Hemoglobin 32.9 pg (26-34); Mean Corpuscular Volume 103.0 fl (80-100); Platelet Count Result 154 k/mm3 (150-375); Red Blood Count 3.34 M/mm3 (4.2-5.4); White Blood Count 4.1 K/mm3 (4.5-10.0)
[2025-06-12 08:00] VITALS: PULSE 66; RESP 16; O2SAT 93
[2025-06-12 08:04] LABS: Anion Gap 3 mmol/L (4-12); Blood Urea Nitrogen 20 mg/dL (7-17); Calcium 9.0 mg/dL (8.4-10.2); Carbon Dioxide 26 mmol/L (22-30); Chloride 106 mmol/L (98-107); Estimated CRCL calculation 38 ml/min; Estimated Glomerular Filt Rate 46; Glucose 86 mg/dL (65-110); Potassium 3.7 mmol/L (3.4-5.0); Sodium 135 mmol/L (137-145)
[2025-06-12] MEDS: oxyBUTYnin CHLORIDE XL 5 MG TAB.ER.24 10 MG PO (09:31)
[2025-06-12] MEDS: DOCUSATE SODIUM 100 MG CAPSULE 200 MG PO ×2 (09:31→17:22)
[2025-06-12] MEDS: GABAPENTIN 100 MG CAPSULE 200 MG PO ×2 (09:31→17:22)
[2025-06-12] MEDS: ROSUVASTATIN 10 MG TABLET PO (09:31)
[2025-06-12] MEDS: LINACLOTIDE 145 MCG CAPSULE 290 MCG PO (09:32)
[2025-06-12] MEDS: HYDROXYCHLOROQUINE SULFATE 200 MG TABLET 400 MG PO (09:32)
[2025-06-12] MEDS: CHOLECALCIFEROL (VITAMIN D3) 125 MCG (5,000 UNITS) TABLET PO (09:32)
[2025-06-12] MEDS: TAMSULOSIN HCL 0.4 MG CAPSULE PO (09:32)
[2025-06-12] MEDS: DULoxetine HCL 60 MG CAPSULE.DR PO (09:32)
[2025-06-12] MEDS: FOLIC ACID 1 MG TABLET 2 MG PO (09:32)
[2025-06-12] MEDS: buPROPion HCL XL (24 HR) 150 MG TABCR PO (09:32)
[2025-06-12] MEDS: ASPIRIN 81 MG ENTERIC TABLET PO (09:35)
[2025-06-12] MEDS: cefTAZidime INJ 1 GM in SODIUM CHLORIDE 0.9% IV 50 ML IVPB ×2 (09:38→21:00)
[2025-06-12] MEDS: oxyCODONE HCL (*CRX) 5 MG TAB IR 10 MG PO (13:57)
[2025-06-12 14:00] VITALS: BP 101/43; PULSE 77; RESP 18; TEMP 36.1; O2SAT 96
--- NOTE | 2025-06-12 15:13 | P.PNIM_ITS ---
Assessment and Plan Assessment and Plan (1) NORAH (acute kidney injury): Code(s): N17.9 - Acute kidney failure, unspecified Status: Acute Assessment and Plan: Bumex on hold -Daily labs due to ceftazidime extended use -Encouraged fluids (2) Hematuria: Code(s): R31.9 - Hematuria, unspecified Status: Acute Assessment and Plan: See below. (3) Cystitis: Code(s): N30.90 - Cystitis, unspecified without hematuria Status: Acute Assessment and Plan: Symptoms worsened, failure of outpatient therapy. A repeat urine culture has been obtained. For now, continue ceftriaxone. Exchange new Lyles catheter. Follow urine culture. Follow renal function trend. Will not give additional fluid stress she had. Patient is on bumetanide at home. Morphine for pain control. - daily labs follow bc, u c/s 06/09 passed the kidney stone will continue with pain regimen-will need to try to find PO options that work anticipate d/c home in am with a f/u with urology 06/10 urine culture resulted and growing pseudomonas [id number]. will stop Rocephin as not a good choice for coverage will start cipro for now 750 mg bid and wait for sensitivities - pt is updated and agreeable 06/11 she is due for cath exchange- will consult urology to help with them urine c/s reviewed. discussed with id, Fortaz started. Pt needs 14 total doses. will order midline and contact care coordination for home health/iv maintenance. 06/12 Cath changed 06/11 via uro -ID following, continue ceftazidime until 06/17 2100 last dose. 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 If not, may have to stay here for duration. (4) Catheter-associated urinary tract infection: Code(s): T83.511A - Infection and inflammatory reaction due to indwelling urethral catheter, initial encounter; N39.0 - Urinary tract infection, site not specified Status: Acute Assessment and Plan: See above. Medical Record Review I have reviewed the following patient records and this information was taken i nto consideration when formulating the assessment and plan.: previous labs Time Spent With Patient Time with patient: 25 - 35 minutes Subjective Date/time seen: 06/12/25 1052 Interval history: Pt lying in bed upon my arrival. Pt with no complaints today, she is aware of the plan for extended IV abx. Review of Systems Review of Systems: All systems reviewed & are unremarkable except as noted in HPI and below (Subjective) Exam Narrative: +[place] Const: Other: A&O x3 HENMT: Other: Tacky mucous membranes Eyes: General: appearance normal, both eyes and all related structures Sclera: sclerae normal Neck: Neck: supple Resp: Effort & Inspection: normal respiratory effort Auscultation: clear to auscultation bilaterally Cardio: Rate: regular rate Rhythm: regular rhythm GI: Inspection: non-distended GI Palp: No Tenderness to palpation present (GI) Auscultation: normal bowel sounds Skin: General skin exam: normal color and no rashes or lesions noted Neuro: Speech: normal speech Motor exam (neuro): Normal motor muscle tone present throughout Sensory Exam: normal sensation Extrem: General: normal to inspection Psych: Mental Status: mental status grossly normal Affect: normal affect Objective Data Vital Signs Vital Signs: Vital Signs - 24 hr 06/11/25 21:03 06/11/25 22:00 06/12/25 06:00 Temperature 98.0 F 97.1 F L Pulse Rate 78 66 Respiratory Rate 14 16 Blood Pressure 110/58 L 97/42 L Pulse Oximetry 90 93 Oxygen Delivery Room Air 06/12/25 08:00 06/12/25 14:00 Temperature 97 F L Pulse Rate 66 77 Respiratory Rate 16 18 Blood Pressure 101/43 L Pulse Oximetry 93 96 Oxygen Delivery Room Air Intake/Output Intake/Output: Intake & Output 06/09/25 06/10/25 06/11/25 06/12/25 23:59 23:59 23:59 23:59 Intake Total 2120 830 1518 630 Output Total 1900 2920 1800 400 Balance 220 -9800 -282 230 Meds/Results Medications: Active Medications Generic Name Dose Route Start Last Admin Trade Name Freq PRN Reason Stop Dose Admin Acetaminophen 500 mg 06/08/25 12:39 06/10/25 18:41 Acetaminophen 500 Mg Tablet PO 500 mg Q6H PRN Administration PAIN RATED 1-3 Aspirin 81 mg 06/08/25 12:45 06/12/25 09:35 Aspirin 81 Mg Enteric Tablet PO 81 mg DAILY JULIA Administration Bupropion HCl 150 mg 06/08/25 12:45 06/12/25 09:32 Bupropion Hcl Xl (24 Hr) 150 Mg Tabcr PO 150 mg QAM JULIA Administration Cyclobenzaprine HCl 5 mg 06/08/25 12:39 06/10/25 20:36 Cyclobenzaprine Hcl 5 Mg Tablet PO 5 mg HS PRN Administration Muscle Spasm Docusate Sodium 200 mg 06/08/25 17:00 06/12/25 09:31 Docusate Sodium 100 Mg Capsule PO 200 mg BID JULIA Administration Duloxetine HCl 60 mg 06/08/25 12:50 06/12/25 09:32 Duloxetine Hcl 60 Mg Capsule.Dr PO 60 mg DAILY JULIA Administration Fluticasone Propionate 2 spray 06/09/25 21:00 06/11/25 21:04 Fluticasone Propionate 0.05% Na Spr 16 Gm Btl (*Bkc) NASAL 2 spray HS JULIA Administration Folic Acid 2 mg 06/08/25 12:50 06/12/25 09:32 Folic Acid 1 Mg Tablet PO 2 mg DAILY JULIA Administration Gabapentin 200 mg 06/08/25 17:00 06/12/25 09:31 Gabapentin 100 Mg Capsule PO 200 mg BID JULIA Administration Hydroxychloroquine Sulfate 400 mg 06/08/25 12:50 06/12/25 09:32 Hydroxychloroquine Sulfate 200 Mg Tablet PO 400 mg DAILY JULIA Administration Ceftazidime 1 gm/ Sodium 50 mls @ 100 mls/hr 06/11/25 14:15 06/12/25 09:38 Chloride IVPB 06/17/25 21:29 100 mls/hr Q12HR JULIA Administration Linaclotide 290 mcg 06/08/25 12:50 06/12/25 09:32 Linaclotide 145 Mcg Capsule PO 290 mcg DAILY JULIA Administration Montelukast Sodium 10 mg 06/08/25 21:00 06/11/25 21:03 Montelukast Sodium 10 Mg Tablet PO 10 mg QHS JULIA Administration Morphine Sulfate 4 mg 06/08/25 02:12 06/09/25 12:47 Morphine Sulfate (*Crx) 4 Mg/Ml Inj IV PUSH 4 mg Q2H PRN Administration Pain Rated 7-10 Ondansetron HCl 4 mg 06/08/25 08:01 06/10/25 11:07 Ondansetron Inj 4 Mg/2 Ml Vial IV PUSH 4 mg Q4H PRN Administration Nausea And Vomiting Ondansetron HCl 4 mg 06/08/25 12:39 06/09/25 11:49 Ondansetron Hcl Odt 4 Mg Tablet PO 4 mg Q6H PRN Administration Nausea And Vomiting Oxybutynin Chloride 10 mg 06/08/25 12:50 06/12/25 09:31 Oxybutynin Chloride Xl 5 Mg Tab.Er.24 PO 10 mg DAILY JULIA Administration Oxycodone HCl 10 mg 06/08/25 12:39 06/12/25 13:57 Oxycodone Hcl (*Crx) 5 Mg Tab Ir PO 10 mg Q8H PRN Administration PAIN RATED 7-10 Polyethylene Glycol 17 gm 06/08/25 12:39 Polyethylene Glycol 3350 17 Gm Powd.Pack PO DAILY PRN Constipation Ropinirole HCl 1 mg 06/08/25 21:00 06/11/25 21:03 Ropinirole Hcl 1 Mg Tablet PO 1 mg HS JULIA Administration Rosuvastatin Calcium 10 mg 06/08/25 12:50 06/12/25 09:31 Rosuvastatin 10 Mg Tablet PO 10 mg DAILY JULIA Administration Selenium Sulfide 1 applic 06/08/25 12:46 Selenium Sulfide 1% Shampoo 207 Ml TOPICAL DAILY PRN Dandruff Sodium Chloride 10 ml 06/11/25 22:00 06/12/25 13:58 Saline Lock Flush IV PUSH 10 ml Q8HR JULIA Administration Sodium Chloride 10 ml 06/11/25 17:05 Saline Lock Flush IV PUSH PRN PRN Flush Sodium Chloride 20 ml 06/11/25 17:05 Saline Lock Flush IV PUSH PRN PRN after blood draws Tamsulosin HCl 0.4 mg 06/10/25 09:00 06/12/25 09:32 Tamsulosin Hcl 0.4 Mg Capsule PO 06/17/25 08:59 0.4 mg QAM JULIA Administration Vitamin D 125 mcg 06/08/25 12:45 06/12/25 09:32 Cholecalciferol (Vitamin D3) 125 Mcg (5,000 Units) Tablet PO 125 mcg DAILY JULIA Administration Radiology Results: ITS Impressions Abdomen/Pelvis CT 06/08/25 08:50 IMPRESSION: 1. Nonobstructing left kidney stone. Labs Labs: Laboratory Results - last 24 hr 06/12/25 07:30 WBC 4.1 L RBC 3.34 L Hgb 11.0 L Hct 34.4 L MCV 103.0 H MCH 32.9 MCHC 32.0 RDW 13.7 Plt Count 154 MPV 9.9 Sodium 135 L Potassium 3.7 Chloride 106 Carbon Dioxide 26 Anion Gap 3 L BUN 20 H Creatinine 1.17 H Estim Creat Clear Calc 38 Estimated GFR 46 L Glucose 86 Calcium 9.0 Quality VTE Prophylaxis VTE prophylaxis: mechanical ordered
--- NOTE | 2025-06-12 16:58 | WPDIDCN ---
Assessment and Plan Assessment and plan (1) Catheter-associated urinary tract infection: Code(s): T83.511A - Infection and inflammatory reaction due to indwelling urethral catheter, initial encounter; N39.0 - Urinary tract infection, site not specified Status: Acute Plan ASSESSMENT: 1. UTI with pyelonephritis iso SPC--changed; UCx with PSAR 2. HTN, HL, CAD, asthma 3. obesity 4. depression RECOMMENDATIONS: -continue ceftazidime 1 gram IV Q12 hrs through Jun 17 -has midline -will follow abx as outpatient d/w pharmacy Pt was seen via video telehealth consultation with the assistance of staff. Chart, data and patient info reviewed. Patient was located at [facility] while I was in my [place] office. Pt gave consent. HPI Data of Consult Date/Time: 06/12/25 16:58 Requesting Physician: Clara Polo MD Primary Care Provider: Alee Elizondo, PA Consult Narrative Reason for consult: abx mgmt Narrative: Nohemy Roy is a 70 year old female with pmhx/o obesity, depression, asthma, HTN, HL, CAD, presented to ED 06/06 and discharged on macrobid for UTI. Then returned for UTI. UCx with pseudomonas. HAs SPC. C/o abd pain. Had SPC changed. No current fevers. No leukocytosis. ID consulted for IV OPAT. [facility] Past Medical History Medical History (Updated 06/08/25 @ 07:05 by Clara Polo MD) Obese Arthritis OWEN (obstructive sleep apnea) GERD (gastroesophageal reflux disease) Kidney stones Depression Angina of effort Asthma Hyperlipidemia CAD (coronary atherosclerotic disease) H/O: HTN (hypertension) Moderate persistent asthma without complication Obstructive sleep apnea (adult) (pediatric) Rhinitis Surgical History Surgical History (Updated 06/11/25 @ 15:03 by Diogenes Mahoney MD) Chronic suprapubic catheter H/O dilation and curettage History of lithotripsy History of hysterectomy History of repair of hiatal hernia Laparoscopic repair hiatal hernia, laparoscopic Leonor fundoplication 12/14/23 History of left knee replacement History of cholecystectomy S/P appy Family History Family History Mother Chronic HF (heart failure) Family history of diabetes mellitus in first degree relative Cerebrovascular accident Father Family history of malignant neoplasm of kidney Family history of liver disease Carcinoma of colon Atrial fibrillation Other Acute myocardial infarction Asthma Diabetes mellitus Family history of arthritis Family history of cardiovascular disease Family history of chronic obstructive pulmonary disease Family history of congestive heart failure Hypertension Malignant neoplasm of prostate Social History Social History Smoking status: Never smoker Alcohol intake: never Substance use: never Substance use type: does not use Lack of Transportation: No Lack of Food: Never True Current Housing: I Have Housing Concerned About Future Housing: No Difficulty Paying Gas/Electric Bills: No Difficulty Paying for Meds: No Currently Unemployed: No Education: High School Diploma/GED Difficulty w/ Childcare or Family Care: Decline to Answer Living arrangements: alone Spiritual care concerns: No Meds Home Medications and Allergies Home Medications ?Medication ?Instructions ?Recorded ?Confirmed ?Type aspirin 81 mg tablet,delayed 81 mg PO DAILY 06/20/19 06/08/25 History release (Adult Low Dose Aspirin) bupropion HCl 150 mg 24 hr tablet, 150 mg PO QAM 06/20/19 06/08/25 History extended release hydroxychloroquine 200 mg tablet 400 mg PO DAILY 06/20/19 06/08/25 History montelukast 10 mg tablet 10 mg PO QHS 06/20/19 06/08/25 History potassium chloride 10 mEq 10 meq PO DAILY 06/20/19 06/08/25 History tablet,extended release Held on 06/08/25. Instructions: .Provider Order folic acid 1 mg tablet 2 mg PO DAILY 06/21/19 06/08/25 History duloxetine 60 mg capsule,delayed 60 mg PO DAILY 08/20/19 06/08/25 History release cholecalciferol (vitamin D3) 125 125 mcg PO DAILY 03/08/21 06/08/25 History mcg (5,000 unit) tablet (Vitamin D3) docusate sodium 100 mg capsule 200 mg PO BID 03/08/21 06/08/25 History (Colace) ropinirole 0.5 mg tablet 1 mg PO HS 07/14/21 06/08/25 History abatacept 125 mg/mL subcutaneous 125 mg subcut WEEKLY 07/22/23 06/08/25 History syringe (Orencia) Held on 06/08/25. Instructions: .Provider Order bumetanide 1 mg tablet 1 mg PO BID 07/22/23 06/08/25 History Held on 06/08/25. Instructions: .Provider Order gabapentin 100 mg capsule 200 mg PO BID 07/22/23 06/08/25 History linaclotide 290 mcg capsule See Rx Instructions .Route 10/11/23 06/08/25 Rx (Linzess) .COMPLEX #30 caps methotrexate sodium 2.5 mg tablet 17.5 mg PO WEEKLY 12/05/23 06/08/25 History Held on 06/08/25. Instructions: .Provider Order rosuvastatin 10 mg tablet 10 mg PO DAILY 09/18/24 06/08/25 History acetaminophen 500 mg capsule 500 mg PO Q6H PRN pain #14 caps 11/05/24 06/08/25 Rx ondansetron 4 mg disintegrating 4 mg PO Q6H PRN nausea and 06/06/25 06/08/25 Rx tablet vomiting #10 tabs cyclobenzaprine 5 mg tablet 5 mg PO HS PRN muscle spasm 06/08/25 06/08/25 History fluticasone propionate 50 2 spray intranasal DAILY 06/08/25 06/08/25 History mcg/actuation nasal spray,suspension ketoconazole 2 % shampoo 1 applic topical DAILY PRN Dandruff 06/08/25 06/08/25 History oxybutynin chloride 10 mg 10 mg PO DAILY 06/08/25 06/08/25 History tablet,extended release 24 hr oxycodone 10 mg tablet 10 mg PO Q8H PRN pain 06/08/25 06/08/25 History polyethylene glycol 3350 17 17 g PO DAILY PRN constipation 06/08/25 06/08/25 History gram/dose oral powder tamsulosin 0.4 mg capsule 0.4 mg PO QAM #7 caps 06/10/25 Rx Allergies Allergy/AdvReac Type Severity Reaction Status Date / Time meperidine Allergy Severe HIVES Verified 06/08/25 04:40 Penicillins Allergy Severe RASH Verified 06/08/25 04:40 hydrocodone Allergy Intermediate HIVES Verified 06/08/25 04:40 Vital Signs Vital Signs - 24 hr 06/11/25 21:03 06/11/25 22:00 06/12/25 06:00 Temperature 98.0 F 97.1 F L Pulse Rate 78 66 Respiratory Rate 14 16 Blood Pressure 110/58 L 97/42 L Pulse Oximetry 90 93 Oxygen Delivery Room Air 06/12/25 08:00 06/12/25 14:00 Temperature 97 F L Pulse Rate 66 77 Respiratory Rate 16 18 Blood Pressure 101/43 L Pulse Oximetry 93 96 Oxygen Delivery Room Air Exam Narrative: NAD, non-toxic, on room air abd soft and tender in lower quadrants; +SPC--site clearn +right CVAT LUE midline Results Labs 06/12/25 07:30 06/12/25 07:30 Labs: Short CBC 06/12/25 Range/Units 07:30 WBC 4.1 L (4.5-10.0) K/mm3 Hgb 11.0 L (12.0-15.0) g/dL Hct 34.4 L (37.0-47.0) % Plt Count 154 (150-375) k/mm3 [facility] 06/12/25 07:30 Sodium 135 L Potassium 3.7 Chloride 106 Carbon Dioxide 26 BUN 20 H Creatinine 1.17 H Glucose 86 Calcium 9.0
[2025-06-12] MEDS: FLUTICASONE PROPIONATE 0.05% NA SPR 16 GM BTL (*BKC) 2 SPRAY NASAL (20:59)
[2025-06-12] MEDS: MONTELUKAST SODIUM 10 MG TABLET PO (21:00)
[2025-06-12 21:57] VITALS: BP 100/45; PULSE 71; RESP 18; TEMP 36.4; O2SAT 94
[2025-06-13 05:40] VITALS: BP 110/53; PULSE 70; RESP 16; TEMP 36.5; O2SAT 96
[2025-06-13] MEDS: SALINE LOCK FLUSH 10 ML IV PUSH ×2 (06:19→13:01)
[2025-06-13 06:34] LABS: Hematocrit 35.4 % (37.0-47.0); Hemoglobin 11.4 g/dL (12.0-15.0); Mean Corpuscular HGB Conc 32.2 g/dl (32-36); Mean Corpuscular Hemoglobin 32.3 pg (26-34); Mean Corpuscular Volume 100.3 fl (80-100); Platelet Count Result 163 k/mm3 (150-375); Red Blood Count 3.53 M/mm3 (4.2-5.4); White Blood Count 4.1 K/mm3 (4.5-10.0)
[2025-06-13 06:54] LABS: Anion Gap 6 mmol/L (4-12); Blood Urea Nitrogen 20 mg/dL (7-17); Calcium 9.1 mg/dL (8.4-10.2); Carbon Dioxide 23 mmol/L (22-30); Chloride 107 mmol/L (98-107); Estimated CRCL calculation 41 ml/min; Estimated Glomerular Filt Rate 50; Glucose 95 mg/dL (65-110); Potassium 3.8 mmol/L (3.4-5.0); Sodium 136 mmol/L (137-145)
--- NOTE | 2025-06-13 07:34 | PM.IMPN2 ---
Assessment and Plan Assessment and Plan (1) NORAH (acute kidney injury): Code(s): N17.9 - Acute kidney failure, unspecified Status: Acute Assessment and Plan: Bumex on hold, kidney labs nearing baseline -Daily labs due to ceftazidime extended use -Encouraged fluids (2) Hematuria: Code(s): R31.9 - Hematuria, unspecified Status: Acute Assessment and Plan: See below. (3) Cystitis: Code(s): N30.90 - Cystitis, unspecified without hematuria Status: Acute Assessment and Plan: Symptoms worsened, failure of outpatient therapy. A repeat urine culture has been obtained. For now, continue ceftriaxone. Exchange new Lyles catheter. Follow urine culture. Follow renal function trend. Will not give additional fluid stress she had. Patient is on bumetanide at home. Morphine for pain control. - daily labs follow bc, u c/s 06/09 passed the kidney stone will continue with pain regimen-will need to try to find PO options that work anticipate d/c home in am with a f/u with urology 06/10 urine culture resulted and growing pseudomonas [id number]. will stop Rocephin as not a good choice for coverage will start cipro for now 750 mg bid and wait for sensitivities - pt is updated and agreeable 06/11 she is due for cath exchange- will consult urology to help with them urine c/s reviewed. discussed with id, Fortaz started. Pt needs 14 total doses. will order midline and contact care coordination for home health/iv maintenance. 06/12- Cath changed 06/11 via uro -ID following, continue ceftazidime until 06/17 2100 last dose. 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 If not, may have to stay here for duration. (4) Catheter-associated urinary tract infection: Code(s): T83.511A - Infection and inflammatory reaction due to indwelling urethral catheter, initial encounter; N39.0 - Urinary tract infection, site not specified Status: Acute Assessment and Plan: See above. Plan Continue IV abx, pending potential SNF placement for IV abx Medical Record Review I have reviewed the following patient records and this information was taken into consideration when formulating the assessment and plan.: previous labs Time Spent With Patient Time with patient: 25 - 35 minutes Subjective Date/time seen: 06/13/25 0948 Interval history: Pt ambulating back from the restroom upon my arrival, moving well. Pt with no complaints today, she is aware of the plan for extended IV abx and awaiting for placement. Review of Systems Review of Systems: All systems reviewed & are unremarkable except as noted in HPI and below (Subjective) Exam Narrative: +CHICKEN RANCH Const: Other: A&O x3 HENMT: Mouth: Yes moist mucous membranes Eyes: General: appearance normal, both eyes and all related structures Sclera: sclerae normal Neck: Neck: supple Resp: Effort & Inspection: normal respiratory effort Auscultation: clear to auscultation bilaterally Cardio: Rate: regular rate Rhythm: regular rhythm GI: Inspection: non-distended GI Palp: No Tenderness to palpation present (GI) Auscultation: normal bowel sounds Skin: General skin exam: normal color and no rashes or lesions noted Neuro: Speech: normal speech Motor exam (neuro): Normal motor muscle tone present throughout Sensory Exam: normal sensation Extrem: General: normal to inspection Psych: Mental Status: mental status grossly normal Affect: normal affect Objective Data Vital Signs Vital Signs: Vital Signs - 24 hr 06/12/25 08:00 06/12/25 14:00 06/12/25 21:00 Temperature 97 F L Pulse Rate 66 77 Respiratory Rate 16 18 Blood Pressure 101/43 L Pulse Oximetry 93 96 Oxygen Delivery Room Air Room Air 06/12/25 21:57 06/13/25 05:40 Temperature 97.6 F 97.7 F Pulse Rate 71 70 Respiratory Rate 18 16 Blood Pressure 100/45 L 110/53 L Pulse Oximetry 94 96 Oxygen Delivery Intake/Output Intake/Output: Intake & Output 06/10/25 06/11/25 06/12/25 06/13/25 23:59 23:59 23:59 23:59 Intake Total 830 1518 920 50 Output Total 2920 1800 1600 1250 Balance -2090 -282 -680 -1200 Meds/Results Medications: Active Medications Generic Name Dose Route Start Last Admin Trade Name Freq PRN Reason Stop Dose Admin Acetaminophen 500 mg 06/08/25 12:39 06/10/25 18:41 Acetaminophen 500 Mg Tablet PO 500 mg Q6H PRN Administration PAIN RATED 1-3 Aspirin 81 mg 06/08/25 12:45 06/12/25 09:35 Aspirin 81 Mg Enteric Tablet PO 81 mg DAILY JULIA Administration Bupropion HCl 150 mg 06/08/25 12:45 06/12/25 09:32 Bupropion Hcl Xl (24 Hr) 150 Mg Tabcr PO 150 mg QAM JULIA Administration Cyclobenzaprine HCl 5 mg 06/08/25 12:39 06/10/25 20:36 Cyclobenzaprine Hcl 5 Mg Tablet PO 5 mg HS PRN Administration Muscle Spasm Docusate Sodium 200 mg 06/08/25 17:00 06/12/25 17:22 Docusate Sodium 100 Mg Capsule PO 200 mg BID JULIA Administration Duloxetine HCl 60 mg 06/08/25 12:50 06/12/25 09:32 Duloxetine Hcl 60 Mg Capsule.Dr PO 60 mg DAILY JULIA Administration Fluticasone Propionate 2 spray 06/09/25 21:00 06/12/25 20:59 Fluticasone Propionate 0.05% Na Spr 16 Gm Btl (*Bkc) NASAL 2 spray HS JULIA Administration Folic Acid 2 mg 06/08/25 12:50 06/12/25 09:32 Folic Acid 1 Mg Tablet PO 2 mg DAILY JULIA Administration Gabapentin 200 mg 06/08/25 17:00 06/12/25 17:22 Gabapentin 100 Mg Capsule PO 200 mg BID JULIA Administration Hydroxychloroquine Sulfate 400 mg 06/08/25 12:50 06/12/25 09:32 Hydroxychloroquine Sulfate 200 Mg Tablet PO 400 mg DAILY JULIA Administration Ceftazidime 1 gm/ Sodium 50 mls @ 100 mls/hr 06/11/25 14:15 06/12/25 21:00 Chloride IVPB 06/17/25 21:29 100 mls/hr Q12HR JULIA Administration Linaclotide 290 mcg 06/08/25 12:50 06/12/25 09:32 Linaclotide 145 Mcg Capsule PO 290 mcg DAILY JULIA Administration Montelukast Sodium 10 mg 06/08/25 21:00 06/12/25 21:00 Montelukast Sodium 10 Mg Tablet PO 10 mg QHS JULIA Administration Morphine Sulfate 4 mg 06/08/25 02:12 06/09/25 12:47 Morphine Sulfate (*Crx) 4 Mg/Ml Inj IV PUSH 4 mg Q2H PRN Administration Pain Rated 7-10 Ondansetron HCl 4 mg 06/08/25 08:01 06/10/25 11:07 Ondansetron Inj 4 Mg/2 Ml Vial IV PUSH 4 mg Q4H PRN Administration Nausea And Vomiting Ondansetron HCl 4 mg 06/08/25 12:39 06/09/25 11:49 Ondansetron Hcl Odt 4 Mg Tablet PO 4 mg Q6H PRN Administration Nausea And Vomiting Oxybutynin Chloride 10 mg 06/08/25 12:50 06/12/25 09:31 Oxybutynin Chloride Xl 5 Mg Tab.Er.24 PO 10 mg DAILY JULIA Administration Oxycodone HCl 10 mg 06/08/25 12:39 06/12/25 13:57 Oxycodone Hcl (*Crx) 5 Mg Tab Ir PO 10 mg Q8H PRN Administration PAIN RATED 7-10 Polyethylene Glycol 17 gm 06/08/25 12:39 Polyethylene Glycol 3350 17 Gm Powd.Pack PO DAILY PRN Constipation Ropinirole HCl 1 mg 06/08/25 21:00 06/12/25 21:00 Ropinirole Hcl 1 Mg Tablet PO 1 mg HS JULIA Administration Rosuvastatin Calcium 10 mg 06/08/25 12:50 06/12/25 09:31 Rosuvastatin 10 Mg Tablet PO 10 mg DAILY JULIA Administration Selenium Sulfide 1 applic 06/08/25 12:46 Selenium Sulfide 1% Shampoo 207 Ml TOPICAL DAILY PRN Dandruff Sodium Chloride 10 ml 06/11/25 22:00 06/13/25 06:19 Saline Lock Flush IV PUSH 10 ml Q8HR JULIA Administration Sodium Chloride 10 ml 06/11/25 17:05 Saline Lock Flush IV PUSH PRN PRN Flush Sodium Chloride 20 ml 06/11/25 17:05 Saline Lock Flush IV PUSH PRN PRN after blood draws Tamsulosin HCl 0.4 mg 06/10/25 09:00 06/12/25 09:32 Tamsulosin Hcl 0.4 Mg Capsule PO 06/17/25 08:59 0.4 mg QAM JULIA Administration Vitamin D 125 mcg 06/08/25 12:45 06/12/25 09:32 Cholecalciferol (Vitamin D3) 125 Mcg (5,000 Units) Tablet PO 125 mcg DAILY JULIA Administration Radiology Results: ITS Impressions Abdomen/Pelvis CT 06/08/25 08:50 IMPRESSION: 1. Nonobstructing left kidney stone. Labs Labs: Laboratory Results - last 24 hr 06/12/25 06/13/25 07:30 06:07 WBC 4.1 L 4.1 L RBC 3.34 L 3.53 L Hgb 11.0 L 11.4 L Hct 34.4 L 35.4 L MCV 103.0 H 100.3 H MCH 32.9 32.3 MCHC 32.0 32.2 RDW 13.7 13.8 Plt Count 154 163 MPV 9.9 10.2 Sodium 135 L 136 L Potassium 3.7 3.8 Chloride 106 107 Carbon Dioxide 26 23 Anion Gap 3 L 6 BUN 20 H 20 H Creatinine 1.17 H 1.09 H Estim Creat Clear Calc 38 41 Estimated GFR 46 L 50 L Glucose 86 95 Calcium 9.0 9.1 Quality VTE Prophylaxis VTE prophylaxis: mechanical ordered
[2025-06-13] MEDS: FOLIC ACID 1 MG TABLET 2 MG PO (08:31)
[2025-06-13] MEDS: GABAPENTIN 100 MG CAPSULE 200 MG PO (08:31)
[2025-06-13] MEDS: TAMSULOSIN HCL 0.4 MG CAPSULE PO (08:31)
[2025-06-13] MEDS: DOCUSATE SODIUM 100 MG CAPSULE 200 MG PO (08:31)
[2025-06-13] MEDS: oxyBUTYnin CHLORIDE XL 5 MG TAB.ER.24 10 MG PO (08:31)
[2025-06-13] MEDS: ROSUVASTATIN 10 MG TABLET PO (08:32)
[2025-06-13] MEDS: HYDROXYCHLOROQUINE SULFATE 200 MG TABLET 400 MG PO (08:32)
[2025-06-13] MEDS: buPROPion HCL XL (24 HR) 150 MG TABCR PO (08:32)
[2025-06-13] MEDS: ASPIRIN 81 MG ENTERIC TABLET PO (08:32)
[2025-06-13] MEDS: DULoxetine HCL 60 MG CAPSULE.DR PO (08:32)
[2025-06-13] MEDS: LINACLOTIDE 145 MCG CAPSULE 290 MCG PO (08:32)
[2025-06-13] MEDS: CHOLECALCIFEROL (VITAMIN D3) 125 MCG (5,000 UNITS) TABLET PO (08:32)
--- NOTE | 2025-06-13 10:29 | WPDINFPN2 ---
Progress Note: A&P Assessment and Plan (1) Catheter-associated urinary tract infection: Code(s): T83.511A - Infection and inflammatory reaction due to indwelling urethral catheter, initial encounter; N39.0 - Urinary tract infection, site not specified Status: Acute Plan ASSESSMENT: 1. UTI with pyelonephritis iso SPC--changed; UCx with PS[facility] 2. HTN, HL, CAD, asthma 3. obesity 4. depression 5. penicillin allergy-->rash-->tolerating ceftazidime RECOMMENDATIONS: -continue ceftazidime 1 gram IV Q12 hrs through Jun 17 -has midline d/w pharmacy Pt was seen via video telehealth consultation with the assistance of staff. Chart, data and patient info reviewed. Patient was located at [facility] while I was in my [place] office. Pt gave consent. Subjective Date/time seen: 06/13/25 10:29 Interval history: no fevers no leukocytosis Exam Narrative: on room air pale abd soft NT +SPC Objective Data Vital Signs Vital Signs: Vital Signs - 24 hr 06/12/25 14:00 06/12/25 21:00 06/12/25 21:57 Temperature 97 F L 97.6 F Pulse Rate 77 71 Respiratory Rate 18 18 Blood Pressure 101/43 L 100/45 L Pulse Oximetry 96 94 Oxygen Delivery Room Air 06/13/25 05:40 Temperature 97.7 F Pulse Rate 70 Respiratory Rate 16 Blood Pressure 110/53 L Pulse Oximetry 96 Oxygen Delivery Intake/Output Intake/Output: Intake & Output 06/10/25 06/11/25 06/12/25 06/13/25 23:59 23:59 23:59 23:59 Intake Total 830 1518 920 287 Output Total 2920 1800 1600 1250 [facility] [place] -2090 -282 -680 -963 Meds/Results Medications: Active Medications Generic Name Dose Route Start Last Admin Trade Name Freq PRN Reason Stop Dose Admin Acetaminophen 500 mg 06/08/25 12:39 06/10/25 18:41 Acetaminophen 500 Mg Tablet PO 500 mg Q6H PRN Administration PAIN RATED 1-3 Aspirin 81 mg 06/08/25 12:45 06/13/25 08:32 Aspirin 81 Mg Enteric Tablet PO 81 mg DAILY JULIA Administration Bupropion HCl 150 mg 06/08/25 12:45 06/13/25 08:32 Bupropion Hcl Xl (24 Hr) 150 Mg Tabcr PO 150 mg QAM JULIA Administration Cyclobenzaprine HCl 5 mg 06/08/25 12:39 06/10/25 20:36 Cyclobenzaprine Hcl 5 Mg Tablet PO 5 mg HS PRN Administration Muscle Spasm Docusate Sodium 200 mg 06/08/25 17:00 06/13/25 08:31 Docusate Sodium 100 Mg Capsule PO 200 mg BID JULIA Administration Duloxetine HCl 60 mg 06/08/25 12:50 06/13/25 08:32 Duloxetine Hcl 60 Mg Capsule.Dr PO 60 mg DAILY JULIA Administration Fluticasone Propionate 2 spray 06/09/25 21:00 06/12/25 20:59 Fluticasone Propionate 0.05% Na Spr 16 Gm Btl (*Bkc) NASAL 2 spray HS JULIA Administration Folic Acid 2 mg 06/08/25 12:50 06/13/25 08:31 Folic Acid 1 Mg Tablet PO 2 mg DAILY JULIA Administration Gabapentin 200 mg 06/08/25 17:00 06/13/25 08:31 Gabapentin 100 Mg Capsule PO 200 mg BID JULIA Administration Hydroxychloroquine Sulfate 400 mg 06/08/25 12:50 06/13/25 08:32 Hydroxychloroquine Sulfate 200 Mg Tablet PO 400 mg DAILY JULIA Administration Ceftazidime 1 gm/ Sodium 50 mls @ 100 mls/hr 06/11/25 14:15 06/12/25 21:00 Chloride IVPB 06/17/25 21:29 100 mls/hr Q12HR JULIA Administration Linaclotide 290 mcg 06/08/25 12:50 06/13/25 08:32 Linaclotide 145 Mcg Capsule PO 290 mcg DAILY JULIA Administration Montelukast Sodium 10 mg 06/08/25 21:00 06/12/25 21:00 Montelukast Sodium 10 Mg Tablet PO 10 mg QHS JULIA Administration Morphine Sulfate 4 mg 06/08/25 02:12 06/09/25 12:47 Morphine Sulfate (*Crx) 4 Mg/Ml Inj IV PUSH 4 mg Q2H PRN Administration Pain Rated 7-10 Ondansetron HCl 4 mg 06/08/25 08:01 06/10/25 11:07 Ondansetron Inj 4 Mg/2 Ml Vial IV PUSH 4 mg Q4H PRN Administration Nausea And Vomiting Ondansetron HCl 4 mg 06/08/25 12:39 06/09/25 11:49 Ondansetron Hcl Odt 4 Mg Tablet PO 4 mg Q6H PRN Administration Nausea And Vomiting Oxybutynin Chloride 10 mg 06/08/25 12:50 06/13/25 08:31 Oxybutynin Chloride Xl 5 Mg Tab.Er.24 PO 10 mg DAILY JULIA Administration Oxycodone HCl 10 mg 06/08/25 12:39 06/12/25 13:57 Oxycodone Hcl (*Crx) 5 Mg Tab Ir PO 10 mg Q8H PRN Administration PAIN RATED 7-10 Polyethylene Glycol 17 gm 06/08/25 12:39 06/13/25 08:31 Polyethylene Glycol 3350 17 Gm Powd.Pack PO 17 gm DAILY PRN Administration Constipation Ropinirole HCl 1 mg 06/08/25 21:00 06/12/25 21:00 Ropinirole Hcl 1 Mg Tablet PO 1 mg HS JULIA Administration Rosuvastatin Calcium 10 mg 06/08/25 12:50 06/13/25 08:32 Rosuvastatin 10 Mg Tablet PO 10 mg DAILY JULIA Administration Selenium Sulfide 1 applic 06/08/25 12:46 Selenium Sulfide 1% Shampoo 207 Ml TOPICAL DAILY PRN Dandruff Sodium Chloride 10 ml 06/11/25 22:00 06/13/25 06:19 Saline Lock Flush IV PUSH 10 ml Q8HR JULIA Administration Sodium Chloride 10 ml 06/11/25 17:05 Saline Lock Flush IV PUSH PRN PRN Flush Sodium Chloride 20 ml 06/11/25 17:05 Saline Lock Flush IV PUSH PRN PRN after blood draws Tamsulosin HCl 0.4 mg 06/10/25 09:00 06/13/25 08:31 Tamsulosin Hcl 0.4 Mg Capsule PO 06/17/25 08:59 0.4 mg QAM JULIA Administration Vitamin D 125 mcg 06/08/25 12:45 06/13/25 08:32 Cholecalciferol (Vitamin D3) 125 Mcg (5,000 Units) Tablet PO 125 mcg DAILY JULIA Administration Radiology Results: ITS Impressions Abdomen/Pelvis CT 06/08/25 08:50 IMPRESSION: 1. Nonobstructing left kidney stone. Labs Labs: Laboratory Results - last 24 hr 06/13/25 06:07 WBC 4.1 L RBC 3.53 L Hgb 11.4 L Hct 35.4 L MCV 100.3 H MCH 32.3 MCHC 32.2 RDW 13.8 Plt Count 163 MPV 10.2 Sodium 136 L Potassium 3.8 Chloride 107 Carbon Dioxide 23 Anion Gap 6 BUN 20 H Creatinine 1.09 H Estim Creat Clear Calc 41 Estimated GFR 50 L Glucose 95 Calcium 9.1
[2025-06-13] MEDS: cefTAZidime INJ 1 GM in SODIUM CHLORIDE 0.9% IV 50 ML IVPB (12:54)
[2025-06-13 14:00] VITALS: BP 103/49; PULSE 77; RESP 17; TEMP 36.3; O2SAT 96
--- NOTE | 2025-06-13 14:43 | PM.DS ---
DS: Admitting Diagnosis Discharge Date 06/13/2025 Admitting Diagnosis Dysuria DS: Discharge Diagnosis Discharge Diagnosis (1) NORAH (acute kidney injury): Code(s): N17.9 - Acute kidney failure, unspecified Status: Acute Assessment and Plan: Continue Bumex on discharge -Daily labs due to ceftazidime extended use -Encouraged fluids (2) Hematuria: Code(s): R31.9 - Hematuria, unspecified Status: Acute Assessment and Plan: See below. (3) Cystitis: Code(s): N30.90 - Cystitis, unspecified without hematuria Status: Acute Assessment and Plan: Symptoms worsened, failure of outpatient therapy. A repeat urine culture has been obtained. For now, continue ceftriaxone. Exchange new Lyles catheter. Follow urine culture. Follow renal function trend. Will not give additional fluid stress she had. Patient is on bumetanide at home. Morphine for pain control. - daily labs follow bc, u c/s 06/09 passed the kidney stone will continue with pain regimen-will need to try to find PO options that work anticipate d/c home in am with a f/u with urology 06/10 urine culture resulted and growing pseudomonas [id number]. will stop Rocephin as not a good choice for coverage will start cipro for now 750 mg bid and wait for sensitivities - pt is updated and agreeable 06/11 she is due for cath exchange- will consult urology to help with them urine c/s reviewed. discussed with id, Fortaz started. Pt needs 14 total doses. will order midline and contact care coordination for home health/iv maintenance. 06/12- Cath changed 06/11 via uro -ID following, continue ceftazidime until 06/17 2100 last dose. -Plan was to go home with IV abx but unable to self-administer due to RUE amputation, pt to discharge to [facility] for duration of IV abx (4) Catheter-associated urinary tract infection: Code(s): T83.511A - Infection and inflammatory reaction due to indwelling urethral catheter, initial encounter; N39.0 - Urinary tract infection, site not specified Status: Acute Assessment and Plan: See above. Plan Continue IV abx upon discharge to SNF DS: Summary Hospital Course Reason for hospitalization: UTI Hospital Course: The patient is a 70-year-old female with a history of chronic suprapubic catheter, recurrent nephrolithiasis, coronary artery disease, hypertension, hyperlipidemia, GERD, depression, asthma, and OWEN, who presented with worsening dysuria, urinary frequency, urgency, suprapubic discomfort, bilateral flank pain, hematuria, and nausea. She had been recently treated for a UTI with outpatient Macrobid but developed worsening symptoms, including gross hematuria and intractable pain, prompting emergency department evaluation and subsequent admission. On admission, she was afebrile and hemodynamically stable but in mild distress due to pain. Laboratory studies revealed acute kidney injury (creatinine 1.19 mg/dL, baseline 0.7?1.0), anemia (Hgb 10.1 g/dL), and urinalysis consistent with infection (positive nitrites, leukocyte esterase, pyuria, hematuria, and calcium oxalate crystals). Imaging demonstrated a nonobstructing left renal calculus, mildly thickened bladder wall, and no hydronephrosis. Initial urine cultures grew Gram-negative bacilli; a prior culture had shown gaitan-sensitive E. coli. She was started on IV ceftriaxone for presumed pyelonephritis and catheter-associated UTI. Her suprapubic catheter was exchanged by urology at the bedside. Despite initial therapy, her symptoms persisted, and repeat urine culture grew Pseudomonas aeruginosa resistant to fluoroquinolones. Antibiotics were escalated to IV ceftazidime per infectious disease recommendations, and ciprofloxacin was discontinued. The patient?s pain was managed with a multimodal regimen, and her diuretic (bumetanide) was continued with careful fluid management due to her cardiac history and risk of fluid overload. During her hospitalization, she passed a kidney stone on 06/09, which correlated with some improvement in her flank pain. Her renal function gradually improved (creatinine down to 1.09 mg/dL at discharge), and her hemoglobin stabilized. She remained afebrile and hemodynamically stable throughout her stay, with no evidence of sepsis or systemic complications. The suprapubic catheter was maintained to gravity drainage during admission, and she was counseled on resuming her usual catheter plug regimen after discharge. Given her right upper extremity amputation and inability to self-administer IV antibiotics, she was discharged to a [facility] facility to complete a 14-day course of IV ceftazidime, with plans for close follow-up with urology and her primary care provider. Discharge labs were stable, and she was instructed to obtain repeat labs after completion of antibiotics. She was discharged in stable condition, progressing toward her baseline functional status. Status at Discharge Overall status at discharge: patient is progressing back to baseline Time Spent with Patient Time attestation: Total time spent providing and/or coordinating discharge services: 45 Exam Narrative: +[facility] [place] Const: Other: A&O x3 HENMT: Mouth: Yes moist mucous membranes Eyes: General: appearance normal, both eyes and all related structures Sclera: sclerae normal Neck: Neck: supple Resp: Effort & Inspection: normal respiratory effort Auscultation: clear to auscultation bilaterally Cardio: Rate: regular rate Rhythm: regular rhythm GI: Inspection: non-distended Auscultation: normal bowel sounds Skin: General skin exam: normal color and no rashes or lesions noted Neuro: Speech: normal speech Motor exam (neuro): Normal motor muscle tone present throughout Sensory Exam: normal sensation Extrem: General: normal to inspection Psych: Mental Status: mental status grossly normal Affect: normal affect DS: Data Data Completed and Pending Completed studies during hospitalization: Labs, urine, imaging Labs on day of discharge: Labs from last 24 hours 06/13/25 06:07 WBC 4.1 L RBC 3.53 L Hgb 11.4 L Hct 35.4 L MCV 100.3 H MCH 32.3 MCHC 32.2 RDW 13.8 Plt Count 163 MPV 10.2 Sodium 136 L Potassium 3.8 Chloride 107 Carbon Dioxide 23 Anion Gap 6 BUN 20 H Creatinine 1.09 H Estim Creat Clear Calc 41 Estimated GFR 50 L Glucose 95 Calcium 9.1 Discharge Plan Discharge Attending physician on discharge: Dayo Dixon Consulting providers: Diogenes Mahoney; Rose Foster; Joycelyn Redd Discharging Clinician: Rose Foster Anticipated Discharge Date/Time: 06/13/25 16:00 Patient Disposition: SNF Activity: november shower Diet: heart healthy Discharge Instructions: 1. Continue your IV antibiotics through June 17 2. Make sure to follow-up with your primary care provider after you leave the care facility. I have ordered labs for you to obtain the day after you finish your antibiotics, your primary care provider will look after these results. Continue to check your blood pressure and blood sugar at home if applicable. Keep your scheduled appts with your primary care provider and any specialist that you may see. Return to the emergency department if you develop sudden shortness of breath, chest pain, a fever of greater than 101.5, or nausea, vomiting, abd pain, or diarrhea that does not go away. Follow-up with your primary care provider within 1-2 weeks, they will want to be updated on your inpatient stay in the hospital. Thank you for [facility] for your healthcare needs. Patient Instructions: Antibiotic Form, Ceftazidime (By injection), Catheter-associated Urinary Tract Infection (GEN) Patient Language: Guyanese Stand Alone Forms: General Discharge Information Follow-up/Referrals: [facility] [Provider Group] - 1 Week Referral Note: f/u with your established urologist Mikhail,JACQUI Vickers [Primary Care Provider, Unknown] - 2 Weeks Discharge Medications: New tamsulosin 0.4 mg Capsule 0.4 mg PO QAM Qty: 7 0RF Continued duloxetine 60 mg capsule,delayed release(DR/EC) 60 mg PO DAILY potassium chloride 10 mEq tablet extended release 10 meq PO DAILY montelukast 10 mg tablet 10 mg PO QHS hydroxychloroquine 200 mg tablet 400 mg PO DAILY bupropion HCl 150 mg tablet extended release 24 hr 150 mg PO QAM aspirin [Adult Low Dose Aspirin] 81 mg tablet,delayed release (DR/EC) 81 mg PO DAILY folic acid 1 mg tablet 2 mg PO DAILY rosuvastatin 10 mg tablet 10 mg PO DAILY acetaminophen 500 mg capsule 500 mg PO Q6H PRN (Reason: pain) Qty: 14 0RF docusate sodium [Colace] 100 mg Capsule 200 mg PO BID cholecalciferol (vitamin D3) [Vitamin D3] 125 mcg (5,000 unit) Tablet 125 mcg PO DAILY ropinirole 0.5 mg Tablet 1 mg PO HS bumetanide 1 mg tablet 1 mg PO BID gabapentin 100 mg capsule 200 mg PO BID Patient Comments: TAKES 400MG AT HS Orencia 125 mg/mL Syringe 125 mg SUBCUT WEEKLY Patient Comments: Tuesday' methotrexate sodium 2.5 mg tablet 17.5 mg PO WEEKLY Patient Comments: TAKES ON WEDNESDAYS ondansetron 4 mg tablet,disintegrating 4 mg PO Q6H PRN (Reason: nausea and vomiting) Qty: 10 0RF cyclobenzaprine 5 mg tablet 5 mg PO HS PRN (Reason: muscle spasm) polyethylene glycol 3350 17 gram/dose powder 17 g PO DAILY PRN (Reason: constipation) oxycodone 10 mg tablet 10 mg PO Q8H PRN (Reason: pain) oxybutynin chloride 10 mg tablet extended release 24hr 10 mg PO DAILY ketoconazole 2 % shampoo 1 applic TOPICAL DAILY PRN (Reason: Dandruff) fluticasone propionate 50 mcg/actuation spray,suspension 2 spray INTRANASAL DAILY Patient Comments: Admin 2 sprays each nostril daily Linzess 290 mcg capsule See Rx Instructions .ROUTE .COMPLEX Qty: 30 11RF Dose Instruction: TAKE 1 CAPSULE BY MOUTH EVERY DAY Rx Instructions: TAKE 1 CAPSULE BY MOUTH EVERY DAY Other Ambulatory Orders: Complete Blood Count with Diff (Routine) Timeframe: 5 Days Location: Determined by Patient Ordered By: Rose Foster Comprehensive Metabolic Panel (Routine) Timeframe: 5 Days Location: Determined by Patient Ordered By: Rose Foster Date of admission: 06/08/25 07:51 Primary Care Provider: Mikhail,Alee Admitting Provider: Clara Polo Attending physician on admission: Clara Polo Condition: Stable Quality VTE Prophylaxis VTE prophylaxis: mechanical ordered Hospitalist MIPS Heart Failure (Exclusion) Patient has history of Heart Transplant or Left Ventricular Assistive Device?: No IF YES, STOP HERE Heart Failure (Qualifier) Patient has current or prior documentation of LVEF less than or equal to 40%, or mod/servere depressed LVSF?: No IF NO, STOP HERE
[2025-06-13 16:09] LABS: SARS-CoV-2 RNA PCR Negative (Negative)
== END 2025-06-13 17:22 | DRG 699 ==
LOC: ANHED 06-08 02:13 → ANH3MEDSUR 06-08 03:30
PROVIDERS: Nurse Practitioner; Admitting Provider General Practice; Emergency Provider Student in an Organized Health Care Education/Training Program; PCP Physician Assistant
DX: T83.510A Infection and inflammatory reaction due to cystostomy catheter, initial encounter (principal); N10 Acute pyelonephritis; N30.01 Acute cystitis with hematuria; N17.9 Acute kidney failure, unspecified; N20.0 Calculus of kidney; K21.9 Gastro-esophageal reflux disease without esophagitis; E78.5 Hyperlipidemia, unspecified; I25.10 Atherosclerotic heart disease of native coronary artery without angina pectoris; E66.9 Obesity, unspecified; E66.811 Obesity, class 1; D18.09 Hemangioma of other sites; G47.33 Obstructive sleep apnea (adult) (pediatric); B96.5 Pseudomonas (aeruginosa) (mallei) (pseudomallei) as the cause of diseases classified elsewhere; Z96.0 Presence of urogenital implants; F32.A Depression, unspecified; Z96.652 Presence of left artificial knee joint; Z11.52 Encounter for screening for COVID-19; Z87.442 Personal history of urinary calculi; Z89.201 Acquired absence of right upper limb, unspecified level; Z88.0 Allergy status to penicillin; Z79.82 Long term (current) use of aspirin; Z79.891 Long term (current) use of opiate analgesic; Z68.33 Body mass index [BMI] 33.0-33.9, adult; Z90.49 Acquired absence of other specified parts of digestive tract
CPT/HCPCS: 36410; 36415; 53060; 74178; 80048; 80053; 81001; 82550; 83605; 83690; 83735; 83880; 85014; 85018; 85025; 85027; 85055; 85610; 85730; 86140; 87086; 87186; 87635; 93005; 96365; 96375; 96376; A9270; C1751; G0378; J0696; J0713; J2003; J2270; J2405; J7030; Q9967